=== PATIENT | male | born 1940 | race Caucasian/White ===

== ENCOUNTER → 2017-08-03 09:53 | Outpatient (CLI) | payer MEDICARE, OTHER, SELFPAY ==
[2017-08-03 12:56] LABS: Anion Gap 7 (5-15); BUN 16 mg/dL (7-18); BUN/Creat Ratio 16.1 RATIO (10-20); Calcium,Total 9.1 mg/dL (8.5-10.1); Chloride 107 mmol/L (98-107); Cholesterol 204 mg/dL (200); Creatinine, Serum 0.99 mg/dL (0.70-1.30); EST Glomerular Filtration Rate 78 mL/min (>60); Est Glom Filt Rate - Afr Amer 95 mL/min (>60); Glucose 97 mg/dL (74-106); High Density Lipoprotein 53 mg/dL; PSA,Total - Annual Screen 0.61 ng/mL (0.00-4.00); Potassium 4.3 mmol/L (3.5-5.1); Sodium Level 140 mmol/L (136-145); Triglycerides 103 mg/dL; Very Low Density Lipoprotein 21 mg/dL (5-40)
[2017-08-04 10:26] LABS: Vitamin D,25 Hydroxy 29.3 ng/mL (29.95-100.01)
== END ==
PROVIDERS: Family Provider Family Medicine; PCP Family Medicine; Visit Provider Family Medicine
DX: I10 Essential (primary) hypertension (principal); E55.9 Vitamin D deficiency, unspecified; Z12.5 Encounter for screening for malignant neoplasm of prostate
CPT/HCPCS: 36415; 80048; 80061; 82306; 84153; G0103

== ENCOUNTER 2018-10-13 07:58 | Emergency (ER) | payer MEDICARE, OTHER, SELFPAY ==
[2018-10-13 08:00] VITALS: BP 131/87; PULSE 92; RESP 18; TEMP 36.6; O2SAT 97; BMI 27.5
[2018-10-13] MEDS: Fleet Enema 1 ML RECTAL (08:39)
--- NOTE | 2018-10-13 08:46 | ED.VIS.GEN ---
History of Present Illness Chief Complaint: Constipation Narrative: Patient presenting for evaluation secondary to constipation. Patient reports that he has a underlying history of hemorrhoids which intermittently will cause him some difficulty with having bowel movements. Patient states that over the course the last 3 days however he has not been able to successfully have a bowel movement. He reports that he feels as if he is impacted, and feels as if there is a baseball of stool in his rectum that he cannot pass. Patient states that he took some stool softeners with no relief. He denies any abdominal pain. He does have some decreased appetite but no nausea or vomiting. Patient has a history of a distant appendectomy. No personal history of cancer. No unintended weight loss or night sweats. Review of systems otherwise negative. Past Medical History - Allergies and Home Meds Allergies/Adverse Reactions: Allergies No Known Allergies Allergy (Verified 10/13/18 08:02) Primary Care Physician: William Menjivar MD [Primary Care Provider] - Past Medical History: None Surgical History: appendectomy Smoking Status: Never smoker Review of Systems All systems negative except as indicated Gastrointestinal: Reports: Constipation. Denies: Abdominal pain Physical Exam Vital Signs/Narrative: Vital Signs Temp Pulse Resp BP Pulse Ox 10/13/18 08:00 97.8 F 92 18 131/87 H 97 General: Well nourished, Well developed, No Acute Distress Head: Normocephalic, Atraumatic Eyes: Perrl, EOMI ENT: Moist mucous membranes, No rhinorrhea Neck: Supple, Nontender Cardiovascular: Regular rate, Regular rhythm, No murmurs Respiratory: No distress, CTA bilaterally, Chest nontender Abdomen: Soft, Nontender, Nondistended, Normal bowel sounds Rectal: - - Patient has evidence of nonthrombosed external hemorrhoids that were not overly tender to palpation. Digital exam shows stool impaction with hard stool in the vault Back: Nontender, Normal Inspection Extremities: Nontender, No edema Skin: Normal color, No rash Neurological: Alert, Oriented x3, Cranial nerves II-XII grossly intact, Normal Strength, Normal Sensation Psychological: Normal affect, Normal Mood Diagnostic/Tx/Re-eval - Medical Decision Making Patient presented secondary to constipation. He was disimpacted as noted in the procedure note. Patient was given a fleets enema with resolution of his impaction and improvement of his constipation. Patient will be discharged with lactulose Colace and follow-up with a general surgeon for his hemorrhoids. Procedures Procedure(s): Fecal disimpaction: Patient was placed in the left lateral decubitus position. Lubricated index finger was utilized to palpate the patient's fecal impaction. This was gently broken up with digital pressure. Patient tolerated this well. ED Disposition - Plan for ED Patient: Disposition: Home or Assisted Living Diagnosis: Fecal impaction Instructions: FECAL IMPACTION, Treated, CONSTIPATION (Adult), Hemorrhoids Prescriptions: Docusate Sodium [Colace] 100 mg PO DAILY #30 cap Prescription Printed Lactulose 10 gm PO DAILY #60 ml Prescription Printed Referrals: William Menjivar MD [Primary Care Provider] - Leslie Gupta MD [STAFF PHYSICIAN] - As Needed
== END 2018-10-13 09:45 | disposition home or self-care (01) ==
PROVIDERS: Emergency Provider Emergency Medicine; Family Provider Family Medicine; PCP Family Medicine
DX: K56.41 Fecal impaction (principal); K64.4 Residual hemorrhoidal skin tags
CPT/HCPCS: 99283

== ENCOUNTER → 2018-10-27 10:01 | Outpatient (CLI) | payer MEDICARE, OTHER, SELFPAY ==
[2018-10-13 08:00] VITALS: BMI 27.5
--- NOTE | 2018-10-27 10:05 | RAD_ITS ---
STUDY: X-RAY - ACUTE ABDOMINAL SERIES REASON FOR EXAM: Male, 77 years old. Constipation. TECHNIQUE: Single view of the chest. Supine, and erect view(s) of the abdomen were obtained. COMPARISON: Comparison is made with prior study dated September 11, 2016. FINDINGS: Mild degree of the increased markings at the lung bases suggests mild bibasilar scarring. Decreased bronchovascular markings in the lung apices suggestive of emphysematous changes. Normal size heart. Normal mediastinum and selina. Normal visualized pulmonary arteries. There is atherosclerotic calcification of the aortic arch with tortuosity. There is a moderate amount of colonic fecal material. The soft tissue structures of the abdomen and pelvis are unremarkable. There are diffuse degenerative changes of the visualized lumbar spine. RAD/Acute Abdomen Inc Chest IMPRESSION: Moderate amount of fecal material is seen in the colon. Electronically Signed: Abelino Luna, at 15:10 EDT , Service support ,
== END ==
PROVIDERS: Family Provider Family Medicine; PCP Family Medicine; Referring Provider Nurse Practitioner Family; Visit Provider Nurse Practitioner Family
DX: K59.00 Constipation, unspecified (principal)
CPT/HCPCS: 74022

== ENCOUNTER → 2018-11-23 08:51 | Outpatient (CLI) | payer MEDICARE, OTHER, SELFPAY ==
--- NOTE | 2018-11-23 09:13 | US_ITS ---
STUDY: ABDOMINAL ULTRASOUND REASON FOR EXAM: Male, 77 years old. Hypertension TECHNIQUE: Transabdominal ultrasound was performed with real-time and static roberts scale imaging. TECHNICAL QUALITY: Adequate. COMPARISON: None. FINDINGS: Liver: The liver measures 15.2 cm. There is normal echogenicity of the liver. The bile ducts are within normal limits. There is hepatic color flow. The direction of portal flow is hepatopetal. There is no demonstrated mass lesion. Portal vein measurement: Gallbladder: Normal distended gallbladder. The gallbladder wall measures 3.8 mm. There is a negative sonographic Snyder's sign. There is no pericholecystic fluid. There is a gallbladder polyp. Common Bile Duct (C.B.D.): The common bile duct measures 4.8 mm. Pancreas: Normal size of the head, body and tail of the pancreas. There is normal echogenicity of the pancreas. There is no demonstrated pancreatic mass or cyst. Spleen: Normal size of the spleen. The spleen measures 8.4 cm. Right Kidney: Normal size of the right kidney. The right kidney measures 11.5 x 5.5 x 6.7 cm. Normal renal cortex. The right cortex measures 1.4 cm. There is no demonstrated renal mass or cyst. There is no right hydronephrosis. Left Kidney: Normal size of the left kidney. The left kidney measures 12.3 x 5.0 x 5.5 cm. Normal renal cortex. The left cortex measures 1.5 cm. There is a simple 2.0 cm cyst. There is no left hydronephrosis. Aorta: Peripheral calcifications, no demonstrated aneurysm I.V.C.: The IVC is patent. There is no ascites. US/Abdomen Complete IMPRESSION: Nonspecific gallbladder wall thickening at 3.8 mm, no other sonographic evidence of gallbladder disease. Simple left renal cyst Electronically Signed: Tyler Rivers MD at 12:58 EDT , Service support ,
== END ==
PROVIDERS: Family Provider Family Medicine; PCP Family Medicine; Referring Provider Surgery; Visit Provider Surgery
DX: K63.9 Disease of intestine, unspecified (principal); K76.6 Portal hypertension
CPT/HCPCS: 76700

== ENCOUNTER → 2018-12-01 11:00 | Outpatient (CLI) | payer MEDICARE, OTHER, SELFPAY ==
--- NOTE | 2018-12-01 11:04 | RAD_ITS ---
STUDY: X-RAY - ABDOMEN/PELVIS REASON FOR EXAM: Male, 77 years old. Constipation. TECHNIQUE: AP supine and upright views of the abdomen and pelvis. COMPARISON: None. FINDINGS: Normal visualized lung bases. Contrast and fecal material is seen throughout the colon. There is no demonstrated free abdominal air. The visualized liver, spleen and kidneys are grossly normal in size and morphology. Normal soft tissue structures. There are diffuse degenerative changes of the visualized lumbar spine. RAD/Abd Inc Decub and/or Erect IMPRESSION: Contrast and fecal material are seen throughout the colon. Electronically Signed: Abelino Luna, at 11:20 EDT , Service support ,
== END ==
PROVIDERS: Family Provider Family Medicine; PCP Family Medicine; Referring Provider Family Medicine; Visit Provider Family Medicine
DX: K59.00 Constipation, unspecified (principal)
CPT/HCPCS: 74019

== ENCOUNTER → 2020-09-11 15:20 | Outpatient (CLI) | payer MEDICARE, OTHER, SELFPAY ==
--- NOTE | 2020-09-11 15:27 | RAD_ITS ---
INDICATION: DDD EXAMINATION/TECHNIQUE: X-RAY - XR Spine Cervical 6 or More Views COMPARISON: Previous cervical spine x-rays obtained on 06/29/2013 FINDINGS: Studies of the cervical spine in 7 projections including obliques and flexion and extension views show some narrowing of the before meals 34 and C5-6 and C6-7 intervertebral disc spaces there appears to be good extension of the cervical spine with some mild limitation of flexion of the cervical spine. There is uncinate spurring with narrowing of the C3-4, C4-5, C5-6 and C6-7 neural foramina on the right and uncinate spurring with neural foraminal narrowing at the C3-4, C4-5, C5-6 and C6-7 levels on the left. Cervical spondylosis of the articular facets is particularly prominent at C3-4, C4-5, C5-6 and C6-7 levels bilaterally. 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 Electronically Signed: Santana Alonzo DO at 9:40 EDT Tel , Service support ,
--- NOTE | 2020-09-11 15:27 | RAD_ITS ---
STUDY: X-RAY - LEFT SHOULDER REASON FOR EXAM: Male, 79 years old. SHOULDER PAIN TECHNIQUE: 4 view(s) of the shoulder. COMPARISON: None. FINDINGS: Normal glenohumeral articulation. Normal acromioclavicular joint. Normal acromion. Normal humeral head and visualized proximal humerus. The soft tissue structures are unremarkable. Normal visualized pulmonary apex. RAD/Shoulder min 2 Views IMPRESSION: Normal x-ray examination of the shoulder. Electronically Signed: Max Dillon MD at 15:18 EDT Tel , Service support ,
[2020-09-11 17:49] LABS: Hematocrit 46.9 % (40-54); Hemoglobin 15.7 g/dL (13.0-16.5); Mean Corp Hgb Conc 33.5 g/dL (32-36); Mean Corpuscular Hgb 29.7 pg (27.0-32.0); Mean Corpuscular Volume 88.7 fL (80-94); Mean Platelet Vol. 8.7 fl (6.2-12.0); Platelet Count 200 K/mm3 (150-450); RBC Distribution Width CV 12.1 % (11.6-14.6); RBC Distribution Width SD 39.2 fl (35.1-43.9); Red Blood Count 5.29 M/mm3 (4.6-6.2); White Blood Count 6.7 K/mm3 (4.4-11.0)
[2020-09-11 18:25] LABS: ALB/GLOB Ratio 1.4 RATIO (0.9-2.4); AST(SGOT) 20 U/L (15-37); Alanine Aminotransfer ALT/SGPT 26 U/L (16-61); Albumin, Serum 4.2 g/dL (3.2-5.0); Alkaline Phosphatase 93 U/L (45-117); Anion Gap 9 (5-15); BUN 14 mg/dL (7-18); BUN/Creat Ratio 15.3 RATIO (10-20); Chloride 103 mmol/L (98-107); Creatinine, Serum 0.91 mg/dL (0.70-1.30); EST Glomerular Filtration Rate 85 mL/min (>60); Est Glom Filt Rate - Afr Amer 103 mL/min (>60); Globulin 3.1 g/dL (2.2-4.2); Glucose 86 mg/dL (74-106); Protein, Total 7.3 g/dL (6.4-8.2); Sodium Level 138 mmol/L (136-145); Thyroid Stim Hormone (TSH) 1.15 uIU/mL (0.358-3.74)
== END ==
PROVIDERS: PCP Family Medicine; Referring Provider Family Medicine; Visit Provider Family Medicine
DX: M50.30 Other cervical disc degeneration, unspecified cervical region (principal); M25.512 Pain in left shoulder; R53.81 Other malaise; Z13.220 Encounter for screening for lipoid disorders
CPT/HCPCS: 36415; 72052; 73030; 80053; 84443; 85027

== ENCOUNTER 2020-09-15 03:42 | Emergency (ER) | payer MEDICARE, OTHER, SELFPAY ==
[2020-09-15 03:44] VITALS: BP 153/96; PULSE 79; RESP 15; TEMP 36.8; O2SAT 98; BMI 27.4
--- NOTE | 2020-09-15 04:01 | RAD_ITS ---
STUDY: X-RAY - ACUTE ABDOMINAL SERIES REASON FOR EXAM: Male, 79 years old. Pain, constipation TECHNIQUE: Single view of the chest. Supine, and erect view(s) of the abdomen were obtained. COMPARISON: None. FINDINGS: There is no pneumothorax or pleural effusion identified. Chronic lung changes. No focal consolidation. Normal size heart. Aortic calcifications. There is a non-specific bowel gas pattern. The soft tissue structures of the abdomen and pelvis are unremarkable. There are diffuse degenerative changes of the visualized lumbar spine. RAD/Acute Abdomen Inc Chest IMPRESSION: Chronic lung changes. No focal consolidation. Nonobstructive bowel gas pattern. Electronically Signed: Armando Toney MD at 5:48 EDT Tel , Service support ,
--- NOTE | 2020-09-15 04:01 | EKG12_ITS ---
Test Reason : ABD AMANDA Blood Pressure : / mmHG Vent. Rate : 062 BPM Atrial Rate : 062 BPM P-R Int : 134 ms QRS Dur : 088 ms QT Int : 440 ms P-R-T Axes : -08 -17 031 degrees QTc Int : 446 ms Normal sinus rhythm Normal ECG Confirmed by AUGUSTINA CABELLO, JA ([id number]), associate editor LEANDER BRAY ([id number]) on 09/18/2020 9:47:54 AM Referred By: JONATHAN Confirmed By:JA JACKMAN MD
--- NOTE | 2020-09-15 04:03 | EDS_ITS ---
HPI HPI - GI History of Present Illness Chief Complaint: Abd Pain Informant: patient and spouse/S.O. Narrative Narrative: Patient reports that for the last week he has been constipated. He has had this problems a couple times in the past although does not have it regularly. He took an unknown hoiv-all-egixqav agent to help with this somewhere over the last week. He took it once but it did not help. He states now he feels like he does not urinate as well. This has been going on for about a few days last than the constipation. He states he dribbles more but he does not feel distended. He has no dysuria or frequency. He denies any abdominal pain. He does states he feels full or bloated. He is eating and drinking but sometimes eating causes nausea. He also has a history of chronic IBS but states this seems a little different. He has chronic lower back pain but it is not really present now. He has no history of AAA. He is not lightheaded or syncopal. No fevers or chills. Nothing specifically makes his symptoms better or worse. He states he was here once before and he got an enema that helped quite a bit. He is on generic Prozac for anxiety and depression. He denies any other medications actively. [facility] Medical History Depression History of IBS Home Medications fluoxetine 20 mg PO DAILY 09/15/20 [History Last Taken Unknown] Allergy/AdvReac Type Severity Reaction Status Date / Time No Known Allergies Allergy Verified 10/13/18 08:02 Surgical History History of appendectomy Social History Smoking Status: Never smoker ROS ROS ED Constitutional Constitutional ED: Denies chills or fever(s) ENT ENT ED: Denies sore throat Cardiovascular Cardiovascular: Denies chest pain or palpitations Respiratory/Chest Respiratory/Chest: Denies cough or dyspnea Gastrointestinal Gastrointestinal: Reports constipation, nausea and other Details: See history of present illness. ; Denies abdominal pain, diarrhea, melena or vomiting Genitourinary Genitourinary ED: Reports other Details: See history of present illness. ; Denies dysuria or hematuria Musculoskeletal Musculoskeletal: Denies myalgias Integumentary Denies rash Neurologic Neurologic: Reports other Details: Patient sometimes does get a burning sensation of his legs below his knees and feet at night. He is not having that now are complaining about it though. ; Denies headache(s), paresthesias or weakness Psychiatric Psychiatric: Reports anxiety Allergic/Immunologic Allergic/Immunologic ED: Denies urticaria EXAM Physical Exam Const Vital Signs: 09/15/20 03:44 09/15/20 05:44 09/15/20 06:42 Temperature 98.3 F Temperature Source Oral Pulse Rate 79 54 L 67 Respiratory Rate 15 15 13 Blood Pressure 153/96 H 156/76 H 162/81 H Blood Pressure Mean 115 102 108 Pulse Ox 98 98 99 Oxygen Delivery Method Room Air Room Air Room Air Positive well nourished and well developed; Negative for unkempt General Appearance ED: well developed and NAD; Negative for unkempt HEENT Reports dry mucous membranes normocephalic Mouth ED: Yes dry mucous membranes Mouth: dry mucous membranes Eyes EOMs intact bilaterally Resp normal respiratory effort and clear to auscultation bilaterally Cardio regular rate, regular rhythm and no murmurs GI non-tender and non-distended GI Narrative: Abdomen actually seems benign. He is not at all distended. His abdomen is soft. There is no tenderness. I hear no bruit and feel no mass. His bladder also does not feel markedly distended nor does he have pressure over it. Auscultation: normoactive bowel sounds Palpation: soft Back/Spine no CVA tenderness Extremity full ROM Extremity Narrative: Peripheral pulses are equal. No ischemia by exam. General Extremety ED: Negative for edema or tenderness General Extremity: Negative for edema Neuro Sensorium / Orientation: alert and oriented to person Psych mental status grossly normal Appearance: Negative for unkempt Skin Rashes: no rashes MDM MDM MDM Narrative Medical decision making narrative: Blood work including CBC, electrolytes are normal. LFTs are normal other than a very small elevation of his total bilirubin. But he does not have pain in that area. Urinalysis is negative. Lactate is 2.0. Bladder scan only showed 35 cc in the bladder. Rectal exam showed very minimal prostate tenderness. It really was not remarkable. It was not boggy or enlarged. No stool was felt at all. He does have a hemorrhoid but it is decompressed. Prior CT scan was about 8 years ago. I am going to do a CT scan because of this patient's age symptoms and no diagnosis is pointing to his cause. His x-ray does not indicate significant constipation. There is no indication of urinary retention with his bladder scan. When I was in the room talking to him about adding this imaging he kept saying he needs to urinate. Try talk to him about doing a CAT scan, he stated he had to urinate badly. He was able to get up and urinate about 250 cc. He seems to be emptying the bladder well. I am not seei ng signs of significant constipation. I think if his CT scan is okay he can go home. He can certainly take some stool softeners. Although his x-ray does not look like he has a lot of stool, it sounds like he is not having regular bowel movements. He has no fever, he has no white count. His abdomen does not show distention or tenderness. I am pending CT results at this time. Patient will be turned over to oncoming physician. Lab Data Attestation: I reviewed the patient's lab results. Labs: Laboratory Results - last 24 hr 09/15/20 09/15/20 09/15/20 03:55 03:55 04:20 WBC 6.9 RBC 5.19 Hgb 15.5 Hct 45.5 MCV 87.7 MCH 29.9 MCHC 34.1 RDW Std Deviation 38.2 RDW Coeff of Delia 11.9 Plt Count 196 MPV 8.4 Immature Gran % (Auto) 0.300 Neut % (Auto) 45.4 L Lymph % (Auto) 42.5 H [place] % (Auto) 10.1 H Eos % (Auto) 1.3 Baso % (Auto) 0.4 Absolute Neuts (auto) 3.2 Absolute Lymphs (auto) 2.95 Nucleated RBC % 0 Sodium 139 Potassium 3.7 Chloride 103 Carbon Dioxide 26.0 Anion Gap 10 BUN 9 Creatinine 0.99 Estim Creat Clear Calc 59.49 Est GFR (MDRD) Af Amer 94 Est GFR (MDRD) Non-Af 78 BUN/Creatinine Ratio 9.1 L Glucose 98 Lactic Acid 2.0 Calcium 9.2 Total Bilirubin 1.10 H AST 27 ALT 27 Alkaline Phosphatase 86 Total Protein 7.1 Albumin 4.0 Globulin 3.1 Albumin/Globulin Ratio 1.3 Urine Color Urine Clarity Urine pH Ur Specific Faison Urine Protein Urine Glucose (UA) Urine Ketones Urine Occult Blood Urine Nitrite Urine Bilirubin Urine Urobilinogen Ur Leukocyte Esterase Urine RBC Urine WBC Ur Squamous Epith Cells Urine Bacteria Hyaline Casts Urine Mucus 09/15/20 04:20 WBC RBC Hgb Hct MCV MCH MCHC RDW Std Deviation RDW Coeff of Delia Plt Count MPV Immature Gran % (Auto) Neut % (Auto) Lymph % (Auto) [place] % (Auto) Eos % (Auto) Baso % (Auto) Absolute Neuts (auto) Absolute Lymphs (auto) Nucleated RBC % Sodium Potassium Chloride Carbon Dioxide Anion Gap BUN Creatinine Estim Creat Clear Calc Est GFR (MDRD) Af Amer Est GFR (MDRD) Non-Af BUN/Creatinine Ratio Glucose Lactic Acid Calcium Total Bilirubin AST ALT Alkaline Phosphatase Total Protein Albumin Globulin Albumin/Globulin Ratio Urine Color Yellow Urine Clarity Clear Urine pH 5.0 Ur Specific Faison 1.025 Urine Protein 15 H Urine Glucose (UA) Normal Urine Ketones 50 H Urine Occult Blood Negative Urine Nitrite Negative Urine Bilirubin Negative Urine Urobilinogen 1 H Ur Leukocyte Esterase Negative Urine RBC 0 SEEN Urine WBC 0 SEEN Ur Squamous Epith Cells 0 SEEN Urine Bacteria 0 SEEN Hyaline Casts 0-5 SEEN Urine Mucus 2+ Radiography Diagnostic Testing: Radiology Impression Acute Abdomen Series 09/15/20 04:01 IMPRESSION: Chronic lung changes. No focal consolidation. Nonobstructive bowel gas pattern. Electronically Signed: Armando Toney MD at 5:48 EDT Tel , Service support , EKG Initial EKG: Comments: EKG done for older gentleman with a abdominal symptoms read by me shows sinus rhythm with rate of 62. No acute ST elevation or depression. No notable ectopy. MA interval, QRS duration and QTc are normal. Discharge Plan Triage Chief Complaint: Abd Pain ED Provider: Harshil Dee Dx/Rx/DC Orders Clinical Impression: History of constipation, Urinary hesitancy, Abdominal pressure Instructions: Abdominal Pain, ED Constipation (Adult) Prescriptions: No Action fluoxetine 20 mg Capsule 20 mg PO DAILY RF: 0 Primary Care Provider: William Menjivar Referrals: William Menjivar MD [Primary Care Provider] - 3-5 Days if not improving
[2020-09-15 04:11] LABS: Absolute Lymphocyte Count 2.95 X10^3/uL (0.83-4.51); Absolute Neutrophil Count 3.2 X10^3/uL (2.0-7.7); Basophil# 0.03 X10^3/uL; Basophil% 0.4 % (0-1); Eosinophil# 0.09 X10^3/uL; Eosinophils% 1.3 % (0-5); Hematocrit 45.5 % (40-54); Hemoglobin 15.5 g/dL (13.0-16.5); Lymphocyte # 2.95 X10^3/ul (0.83-4.51); Lymphocyte % 42.5 % (19-41); Mean Corp Hgb Conc 34.1 g/dL (32-36); Mean Corpuscular Hgb 29.9 pg (27.0-32.0); Mean Corpuscular Volume 87.7 fL (80-94); Mean Platelet Vol. 8.4 fl (6.2-12.0); Monocyte% 10.1 % (0-10); NRBC Flagged by Analyzer 0 % (0-5); Neutrophil # 3.15 X10^3/uL (2.7-7.7); Neutrophil % 45.4 % (47-70); Platelet Count 196 K/mm3 (150-450); RBC Distribution Width CV 11.9 % (11.6-14.6); RBC Distribution Width SD 38.2 fl (35.1-43.9); Red Blood Count 5.19 M/mm3 (4.6-6.2); White Blood Count 6.9 K/mm3 (4.4-11.0)
[2020-09-15 04:25] LABS: ALB/GLOB Ratio 1.3 RATIO (0.9-2.4); AST(SGOT) 27 U/L (15-37); Alanine Aminotransfer ALT/SGPT 27 U/L (16-61); Alkaline Phosphatase 86 U/L (45-117); Anion Gap 10 (5-15); BUN 9 mg/dL (7-18); BUN/Creat Ratio 9.1 RATIO (10-20); Calcium,Total 9.2 mg/dL (8.5-10.1); Chloride 103 mmol/L (98-107); Creatinine, Serum 0.99 mg/dL (0.70-1.30); EST Glomerular Filtration Rate 78 mL/min (>60); Est Glom Filt Rate - Afr Amer 94 mL/min (>60); Estimated Creatinine Clearance 59.49 ml/min; Globulin 3.1 g/dL (2.2-4.2); Glucose 98 mg/dL (74-106); Potassium 3.7 mmol/L (3.5-5.1); Protein, Total 7.1 g/dL (6.4-8.2); Sodium Level 139 mmol/L (136-145)
[2020-09-15 04:27] LABS: Bacteria 0 SEEN /hpf (None Seen); Red Blood Cells-Urine 0 SEEN /hpf (0-5); Squamous Epithelial Cells - UA 0 SEEN /hpf (0-5); White Blood Cells 0 SEEN /hpf (0-5)
[2020-09-15] MEDS: 0.9% Normal Saline 1,000 ML 1000 ML IV (04:33)
[2020-09-15 05:04] LABS: Color, Urine Yellow (Yellow); Glucose, Dipstick Normal (Normal); Ketone-Dipstick 50 mg/dl (Negative); Leukocyte Esterase-Dipstick Negative /ul (Negative); Nitrite-Dipstick Negative (Negative); Occult Blood-Urine Negative /ul (Negative); Protein-Dipstick 15 mg/dl (Negative); Specific Gravity, Urine 1.025 (1.002-1.030); Urine Bilirubin Dipstick Negative (Negative); Urine Clarity Clear (Clear); Urine Urobilinogen 1 mg/dl (Normal)
[2020-09-15 05:44] VITALS: BP 156/76; PULSE 54; RESP 15; O2SAT 98
[2020-09-15 05:54] LABS: Hyaline Cast 0-5 SEEN /lpf (0-5); Mucous, Urine 2+ /hpf (<or=2+)
--- NOTE | 2020-09-15 05:59 | CT_ITS ---
STUDY: CT ABDOMEN AND PELVIS WITH CONTRAST REASON FOR EXAM: Male, 79 years old. abd pain RADIATION DOSAGE (If Supplied By Facility): CTDIvol = ( 13.51 ) mGy, DLP = ( 807.14 ) mGycm TECHNIQUE: Transaxial images were obtained from the dome of the diaphragm to the symphysis pubis without oral contrast. IV 100mL Isovue-[id number] was administered. Sagittal and coronal images were reconstructed. Individualized dose optimization techniques were used for this CT. COMPARISON: 04/25/2012 FINDINGS: The visualized lung bases are unremarkable. The visualized portions of the heart are within normal limits. Normal liver. Normal gallbladder and extrahepatic biliary system. Normal spleen. Normal pancreas. There is a small, circumscribed, smooth, low attenuation right adrenal mass, consistent with an adrenal adenoma. Normal left adrenal gland. Normal right kidney. Normal left kidney. Normal visualized stomach. Normal small intestine. Normal colon. There is non-visualization of the appendix. Normal abdominal aorta. Normal inferior vena cava. Normal retroperitoneum. Normal urinary bladder. Normal abdominal wall. Mild levoscoliosis with degenerative disc disease. CT/Abdomen/Pelvis W IV Cont ONLY IMPRESSION: Normal enhanced CT of the abdomen and pelvis. Electronically Signed: Max Dillon MD at 7:49 EDT Tel , Service support ,
[2020-09-15 06:42] VITALS: BP 162/81; PULSE 67; RESP 13; O2SAT 99
[2020-09-15 08:11] VITALS: BP 149/66; PULSE 55; RESP 15; O2SAT 98
[2020-09-15 08:25] LABS: Reflex Lactate? Y
== END 2020-09-15 08:12 | disposition home or self-care (01) ==
LOC: ED 04:26
PROVIDERS: Emergency Provider Emergency Medicine; PCP Family Medicine
DX: R10.9 Unspecified abdominal pain (principal); R39.11 Hesitancy of micturition; K58.9 Irritable bowel syndrome, unspecified; F32.9 Major depressive disorder, single episode, unspecified; F41.9 Anxiety disorder, unspecified; Z79.899 Other long term (current) drug therapy
CPT/HCPCS: 74022; 74177; 80053; 81001; 83605; 85025; 93005; 96360; 99283; J7030; Q9967; A4216

== ENCOUNTER 2020-09-18 18:24 | Emergency (ER) | payer MEDICARE, OTHER, SELFPAY ==
[2020-09-18 18:25] VITALS: PULSE 68; RESP 17; O2SAT 98
[2020-09-18 18:26] VITALS: BP 162/85; PULSE 66; RESP 17; TEMP 36.8; O2SAT 97; BMI 26.9
[2020-09-18 20:32] VITALS: BP 151/80; PULSE 50; RESP 18; O2SAT 96
[2020-09-18 21:46] LABS: Absolute Lymphocyte Count 3.35 X10^3/uL (0.83-4.51); Absolute Neutrophil Count 5.8 X10^3/uL (2.0-7.7); Basophil# 0.02 X10^3/uL; Basophil% 0.2 % (0-1); Eosinophil# 0.06 X10^3/uL; Eosinophils% 0.6 % (0-5); Hematocrit 46.8 % (40-54); Lymphocyte # 3.35 X10^3/ul (0.83-4.51); Lymphocyte % 32.9 % (19-41); Mean Corp Hgb Conc 34.2 g/dL (32-36); Mean Corpuscular Hgb 30.1 pg (27.0-32.0); Mean Platelet Vol. 8.3 fl (6.2-12.0); Monocyte# 0.88 X10^3/uL; Monocyte% 8.7 % (0-10); NRBC Flagged by Analyzer 0 % (0-5); Neutrophil # 5.83 X10^3/uL (2.7-7.7); Neutrophil % 57.3 % (47-70); Platelet Count 217 K/mm3 (150-450); RBC Distribution Width CV 12.1 % (11.6-14.6); RBC Distribution Width SD 38.6 fl (35.1-43.9); Red Blood Count 5.32 M/mm3 (4.6-6.2); White Blood Count 10.2 K/mm3 (4.4-11.0)
--- NOTE | 2020-09-18 22:00 | RAD_ITS ---
STUDY: X-RAY - ACUTE ABDOMINAL SERIES REASON FOR EXAM: Male, 79 years old. Pain, distention, headache, colicky pain. TECHNIQUE: Single view of the chest. Supine, and upper view(s) of the abdomen were obtained. COMPARISON: 09/15/[address] FINDINGS: No evidence of pneumonia, pulmonary edema, pneumothorax or pleural effusion. Mild chronic interstitial lung disease similar to previous. Cardiac silhouette, hilar and mediastinal contours with no acute findings. Heart size normal. Atherosclerosis of the thoracic aorta. No evidence of free air or bowel obstruction. Colonic air-fluid levels. No suspicious mass effect or abnormal calcifications. No acute osseous abnormality. RAD/Acute Abdomen Inc Chest IMPRESSION: Colonic air-fluid levels suggestive of diarrheal illness. No other acute finding. Mild chronic interstitial lung disease. Electronically Signed: Lon Hernandez MD at 22:20 EDT Tel , Service support ,
[2020-09-18 22:02] LABS: ALB/GLOB Ratio 1.4 RATIO (0.9-2.4); AST(SGOT) 35 U/L (15-37); Alanine Aminotransfer ALT/SGPT 36 U/L (16-61); Albumin, Serum 4.2 g/dL (3.2-5.0); Alkaline Phosphatase 86 U/L (45-117); Anion Gap 9 (5-15); BUN 12 mg/dL (7-18); BUN/Creat Ratio 12.1 RATIO (10-20); Chloride 103 mmol/L (98-107); Creatinine, Serum 0.99 mg/dL (0.70-1.30); EST Glomerular Filtration Rate 77 mL/min (>60); Est Glom Filt Rate - Afr Amer 93 mL/min (>60); Estimated Creatinine Clearance 59.49 ml/min; Globulin 3.1 g/dL (2.2-4.2); Glucose 90 mg/dL (74-106); Potassium 3.8 mmol/L (3.5-5.1); Protein, Total 7.3 g/dL (6.4-8.2); Sodium Level 139 mmol/L (136-145)
[2020-09-18 22:18] VITALS: BP 157/82; PULSE 63; RESP 16; O2SAT 97
[2020-09-19] MEDS: Ondansetron 4 MG/2 ML Vial IV (00:23)
--- NOTE | 2020-09-19 00:23 | ED.VIS.GI ---
HPI <Dr. Buck Rome MD - Last Filed: 09/19/20 00:29> HPI - GI History of Present Illness Chief Complaint: Abd Pain Detail of Chief Complaint: Nausea vomiting and abdominal pain Informant: patient Abdominal Pain/Flank Pain Onset: Days (The nausea and vomiting is been present for approximately 2 days) Context: Sudden Onset Timing: Intermittent Quality: Cramping (Intermittent cramping abdominal pain for approximately 1 month) Location: Diffuse (Worse lower quadrants) Current Severity: Mild Maximum Severity: Moderate Worsened by: - (When patient has urge to defecate is unable to) Relieved by: Not Relieved By Antacids, Food, Nothing and Remaining Still Nausea/Vomiting/Emesis GI Symptom: Positive for Nausea and Vomiting Onset: Yesterday Quality: Positive for Nonbilious; Negative for Blood streaks, Coffee ground and Hematemesis Severity: Mild Diarrhea/Melena/Hematochezia GI Symptom: Negative for Diarrhea, Melena and Hematochezia Associated Symptoms Associated Symptoms: Negative for Dysuria, Frequency and Hematuria Narrative Narrative: Patient is an elderly male with history of constipation, intermittent abdominal pain. He was seen 3 days ago. His work-up was unremarkable at that time. He does report night sweats. He does report unintentional weight loss because he has no appetite. He denies fever or chills. He denies headache, ocular, visual or auditory symptoms. He denies cardiac or respiratory symptoms. He denies black or maroon-colored stool. He denies bright red blood per rectum. He did complain of numbness in his left arm and numbness in his left shoulder. He denies problems with balance. He has no other complaints. Prior similar symptoms: Yes Recent Illness/Hospitalization: Yes PFSH <Dr. Buck Rome MD - Last Filed: 09/19/20 00:29> [facility] Medical History Depression History of IBS Home Medications fluoxetine 20 mg PO DAILY 09/15/20 [History Last Taken Unknown] Allergy/AdvReac Type Severity Reaction Status Date / Time No Known Allergies Allergy Verified 09/18/20 18:25 Surgical History History of appendectomy Social History (Updated 09/19/20 @ 00:[address] Buck Rome MD) household members: none housing: apartment Smoking Status: Never smoker alcohol intake: current alcohol intake frequency: holidays/special occasions only substance use type: does not use ROS <Dr. Buck Rome MD - Last Filed: 09/19/20 00:29> ROS ED Constitutional Constitutional ED: Reports sweats and weight loss; Denies chills, fever(s) or subjective ENT ENT ED: Denies ear pain, rhinorrhea or sore throat Cardiovascular Cardiovascular: Denies chest pain, orthopnea, palpitations, paroxysmal nocturnal dyspnea or racing heartbeat Respiratory/Chest Respiratory/Chest: Denies cough, dyspnea, dyspnea on exertion, orthopnea, paroxysmal nocturnal dyspnea or sputum Gastrointestinal Gastrointestinal: Reports abdominal pain, constipation, nausea and vomiting; Denies diarrhea or melena Genitourinary Genitourinary ED: Denies dysuria, hematuria or urinary frequency Musculoskeletal Musculoskeletal: Denies arthralgias, back pain, myalgias or neck pain Integumentary Denies Abrasions or rash Neurologic Neurologic: Reports paresthesias and weakness; Denies headache(s) Psychiatric Psychiatric: Reports depression Hematologic/Lymphatic Hematologic/Lymphatic: Denies easy bleeding or easy bruising EXAM <Dr. Buck Rome MD - Last Filed: 09/19/20 00:29> Physical Exam Const Vital Signs: 09/18/20 18:25 09/18/20 18:26 09/18/20 20:32 Temperature 98.3 F Temperature Source Oral Pulse Rate 68 66 50 L Respiratory Rate 17 17 18 Blood Pressure 162/85 H 151/80 H Blood Pressure Mean 110 103 Pulse Ox 98 97 96 Oxygen Delivery Method Room Air Room Air Room Air 09/18/20 22:18 09/19/20 00:25 Temperature Temperature Source Pulse Rate 63 62 Respiratory Rate 16 18 Blood Pressure 157/82 H 145/73 H Blood Pressure Mean 107 97 Pulse Ox 97 98 Oxygen Delivery Method Room Air Room Air Positive well nourished and well developed General Appearance ED: well developed and other Patient appears uncomfortable and is very anxious. HEENT Reports dry mucous membranes normocephalic and atraumatic Mouth ED: Yes dry mucous membranes Mouth: dry mucous membranes Eyes PERRL and EOMs intact bilaterally General Eye ED: Negative for pale conjunctiva or scleral icterus Neck no lymphadenopathy, supple and no JVD Resp normal respiratory effort and clear to auscultation bilaterally Cardio regular rate, regular rhythm, S1 normal heart sound, S2 normal heart sound and no murmurs GI no masses Auscultation: hyperactive bowel sounds Palpation: soft, tender other (Diffuse greater right and left lower quadrant) and guarding other (Periumbilical); Negative for rigid, hepatomegaly, hernia, mass or pulsatile mass Narrative: Normal external genitalia Back/Spine no CVA tenderness Cervical Spine: Negative for cervical spine tenderness Thoracic Spine / Upper Back: Negative for thoracic spinal tenderness Lumbar Spine / Lower Back: Negative for lumbar spinal tenderness Extremity full ROM General Extremety ED: Negative for edema or tenderness General Extremity: Negative for edema Neuro CN's II-XII intact bilaterally and no sensory deficits noted Sensorium / Orientation: alert, oriented to person, oriented to place and oriented to time Psych thought process normal Mood & Affect: anxious Skin no wounds Lesions: no lesions Rashes: no rashes <Dr. Harshil Dee MD - Last Filed: 09/19/20 04:14> Physical Exam Const Vital Signs: 09/18/20 18:25 09/18/20 18:26 09/18/20 20:32 Temperature 98.3 F Temperature Source Oral Pulse Rate 68 66 50 L Respiratory Rate 17 17 18 Blood Pressure 162/85 H 151/80 H Blood Pressure Mean 110 103 Pulse Ox 98 97 96 Oxygen Delivery Method Room Air Room Air Room Air 09/18/20 22:18 09/19/20 00:25 Temperature Temperature Source Pulse Rate 63 62 Respiratory Rate 16 18 Blood Pressure 157/82 H 145/73 H Blood Pressure Mean 107 97 Pulse Ox 97 98 Oxygen Delivery Method Room Air Room Air MDM <Dr. Buck Rome MD - Last Filed: 09/19/20 00:29> [facility] Narrative Medical decision making narrative: With prior tree of appendectomy, and complaint of nausea and vomiting with constipation even though patient had CT of the abdomen 3 days ago abdominal series was obtained. There are air-fluid levels noted. Will obtain CBC to assess white count and H&H. Comprehensive metabolic panel to assess electrolytes, alkaline phosphatase, and calcium since she is reporting weight loss with night sweats. Since she does have air-fluid levels noted on the abdominal series and not classic for partial small bowel obstruction but clinically there is concern for partial small bowel obstruction CT of the abdomen was obtained. Patient has been medicated with Zofran for his nausea. Lab Data Attestation: I reviewed the patient's lab results. Labs: Laboratory Results - last 24 hr 09/18/20 09/18/20 21:33 21:33 WBC 10.2 RBC 5.32 Hgb 16.0 Hct 46.8 MCV 88.0 MCH 30.1 MCHC 34.2 RDW Std Deviation 38.6 RDW Coeff of Delia 12.1 Plt Count 217 MPV 8.3 Immature Gran % (Auto) 0.300 Neut % (Auto) 57.3 Lymph % (Auto) 32.9 Hughes % (Auto) 8.7 Eos % (Auto) 0.6 Baso % (Auto) 0.2 Absolute Neuts (auto) 5.8 Absolute Lymphs (auto) 3.35 Nucleated RBC % 0 Sodium 139 Potassium 3.8 Chloride 103 Carbon Dioxide 27.0 Anion Gap 9 BUN 12 Creatinine 0.99 Estim Creat Clear Calc 59.49 Est GFR (MDRD) Af Amer 93 Est GFR (MDRD) Non-Af 77 BUN/Creatinine Ratio 12.1 Glucose 90 Calcium 9.0 Total Bilirubin 0.70 AST 35 ALT 36 Alkaline Phosphatase 86 Total Protein 7.3 Albumin 4.2 Globulin 3.1 Albumin/Globulin Ratio 1.4 Radiography Diagnostic Testing: Radiology Impression Acute Abdomen Series 09/18/20 22:00 IMPRESSION: Colonic air-fluid levels suggestive of diarrheal illness. No other acute finding. Mild chronic interstitial lung disease. Electronically Signed: Lon Hernandez MD at 22:20 EDT Tel , Service support , Abdomen CT 09/19/20 23:58 IMPRESSION: Evidence of diarrheal illness with coronal air-fluid levels and no formed stool. Other chronic findings as above. Electronically Signed: Lon Hernandez MD at 2:48 EDT Tel , Service support , The end pression by radiologist was read. Patient does not have diarrhea. He has constipation and reading does not correlate with the patient's clinical presentation or findings. CT was obtained as previously documented to evaluate for partial small bowel obstruction. <Dr. Harshil Dee MD - Last Filed: 09/19/20 04:14> [facility] MDM Narrative Medical decision making narrative: Patient is turned over to me pending results of his CAT scan. This does show some increased fluid in the bowels but no acute process. He does admit now that he has had some diarrhea since using both an [id number] laxative and some medicines that his physician gave to him. His exam is benign. He is not having distention or tenderness at this time. In fact his abdomen is actually quite soft. It sounds like he may have had some distention earlier though. I think it is okay that he goes home. He will try to restart resuming a normal diet. He may need follow-up for colonoscopy. It sounds like his last colonoscopy was 2 or 3 years ago. If he is having pain, fevers, blood in the stool or other concerns he should return. Lab Data Labs: Laboratory Results - last 24 hr 09/18/20 09/18/20 21:33 21:33 WBC 10.2 RBC 5.32 Hgb 16.0 Hct 46.8 MCV 88.0 MCH 30.1 MCHC 34.2 RDW Std Deviation 38.6 RDW Coeff of Delia 12.1 Plt Count 217 MPV 8.3 Immature Gran % (Auto) 0.300 Neut % (Auto) 57.3 Lymph % (Auto) 32.9 Hughes % (Auto) 8.7 Eos % (Auto) 0.6 Baso % (Auto) 0.2 Absolute Neuts (auto) 5.8 Absolute Lymphs (auto) 3.35 Nucleated RBC % 0 Sodium 139 Potassium 3.8 Chloride 103 Carbon Dioxide 27.0 Anion Gap 9 BUN 12 Creatinine 0.99 Estim Creat Clear Calc 59.49 Est GFR (MDRD) Af Amer 93 Est GFR (MDRD) Non-Af 77 BUN/Creatinine Ratio 12.1 Glucose 90 Calcium 9.0 Total Bilirubin 0.70 AST 35 ALT 36 Alkaline Phosphatase 86 Total Protein 7.3 Albumin 4.2 Globulin 3.1 Albumin/Globulin Ratio 1.4 Radiography Diagnostic Testing: Radiology Impression Acute Abdomen Series 09/18/20 22:00 IMPRESSION: Colonic air-fluid levels suggestive of diarrheal illness. No other acute finding. Mild chronic interstitial lung disease. Electronically Signed: Lon Hernandez MD at 22:20 EDT Tel , Service support , Abdomen CT 09/19/20 23:58 IMPRESSION: Evidence of diarrheal illness with coronal air-fluid levels and no formed stool. Other chronic findings as above. Electronically Signed: Lon Hernandez MD at 2:48 EDT Tel , Service support , Discharge Plan Triage Chief Complaint: Abd Pain ED Provider: Buck Rome Dx/Rx/DC Orders Clinical Impression: History of constipation, Abdominal pressure Instructions: ED Pain, Acute, Uncertain Cause Prescriptions: No Action fluoxetine 20 mg Capsule 20 mg PO DAILY RF: 0 Primary Care Provider: William Menjivar Referrals: William Menjivar MD [Primary Care Provider] - As soon as possible Disposition Disposition: Home, Self Care Discharge Date/Time: 09/19/20 03:15
[2020-09-19 00:25] VITALS: BP 145/73; PULSE 62; RESP 18; O2SAT 98
--- NOTE | 2020-09-19 23:58 | CT_ITS ---
STUDY: CT ABDOMEN AND PELVIS WITHOUT CONTRAST REASON FOR EXAM: Male, 79 years old. Pain and constipation. TECHNIQUE: Transaxial images were obtained from the dome of the diaphragm to the symphysis pubis with oral contrast, and without intravenous contrast. Sagittal and coronal images were reconstructed. Individualized dose optimization techniques were used for this CT. COMPARISON: 09/15/2020 CT abdomen pelvis. FINDINGS: Partially visualized lower chest: Mild fibrosis lung bases and trace pericardial fluid similar to prior. Liver: No concerning lesions. Gallbladder and biliary tree: No visible gallstones. No pericholecystic inflammation. No biliary ductal dilation. Pancreas: No pancreatic lesions or inflammation. Spleen: Normal size, no splenic lesions. Adrenal glands: Small bilateral adrenal adenomas. Kidneys and ureters: No hydronephrosis or renal stones. No concerning masses. No ureteral dilation. 2.0 cm simple cyst off the lateral aspect of the lower pole of the left kidney. Bilateral perinephric stranding similar to previous. Bowel: Status post appendectomy. No obstruction or inflammation of the bowel. Fluid throughout the bowel, including layering in the rectum, with no formed stool. Urinary bladder: No stones or wall thickening. Reproductive:Normal size prostate. Vascular: No abdominal aortic aneurysm. Retroperitoneal and peritoneal spaces: No ascites or free air. No retroperitoneal lesions. Retroperitoneal lipomatosis again demonstrated. Osseous: No acute osseous abnormality. Bony demineralization. Abdominal and pelvic wall: No concerning findings. Any findings described in the findings sections and not included in the impression are incidental and do not require imaging follow-up. CT/Abdomen/Pel W ORAL Cont Only IMPRESSION: Evidence of diarrheal illness with coronal air-fluid levels and no formed stool. Other chronic findings as above. Electronically Signed: Lon Hernandez MD at 2:48 EDT Tel , Service support ,
== END 2020-09-19 03:15 | disposition home or self-care (01) ==
PROVIDERS: Emergency Provider Emergency Medicine; PCP Family Medicine
DX: R10.9 Unspecified abdominal pain (principal); R11.2 Nausea with vomiting, unspecified; K59.00 Constipation, unspecified; R20.0 Anesthesia of skin; R63.4 Abnormal weight loss; K58.9 Irritable bowel syndrome, unspecified; F32.9 Major depressive disorder, single episode, unspecified; Z79.899 Other long term (current) drug therapy
CPT/HCPCS: 74022; 74176; 80053; 85025; 99285; A4216; J2405

== ENCOUNTER → 2020-09-27 08:15 | Outpatient (CLI) | payer MEDICARE, OTHER, SELFPAY ==
[2020-09-18 18:26] VITALS: BMI 26.9
--- NOTE | 2020-09-27 08:20 | US_ITS ---
STUDY: ABDOMINAL ULTRASOUND - RIGHT UPPER QUADRANT REASON FOR VISIT: Male, 79 years old epigastric pain. TECHNIQUE: Ultrasound evaluation of the right upper quadrant was performed with real-time and static roberts-scale imaging. TECHNICAL QUALITY: Adequate. COMPARISON: Comparison is made with prior study 11/23/2018. FINDINGS: Liver: The liver measures 15.1 cm. There is increased echogenicity consistent with fatty infiltration. The bile ducts are within normal limits. There is hepatic color flow. The direction of portal flow is hepatopetal. There is no demonstrated mass lesion. Gallbladder: Normal distended gallbladder. The gallbladder wall measures 2.4 mm. There is a negative sonographic Snyder''s sign. There is no pericholecystic fluid. There are no gallstones. Common Bile Duct (C.B.D.): The common bile duct measures 4.5 mm. Pancreas: Normal size of the head, body and tail of the pancreas. There is normal echogenicity of the pancreas. There is no demonstrated pancreatic mass or cyst. Right Kidney: Normal size of the right kidney. The right kidney measures 11.3 cm x 5.7 cm x 5.3 cm. Normal renal cortex. The right cortex measures 1.4 cm. There is no demonstrated renal mass or cyst. There is no right hydronephrosis. US/Abdomen Limited IMPRESSION: Fatty infiltration of the liver. Electronically Signed: Abelino Luna MD at 11:11 EDT , Service support ,
== END ==
PROVIDERS: PCP Family Medicine; Visit Provider Family Medicine
DX: R10.9 Unspecified abdominal pain (principal)
CPT/HCPCS: 76705

== ENCOUNTER → 2020-10-15 11:54 | Outpatient (CLI) | payer MEDICARE, OTHER, SELFPAY ==
--- NOTE | 2020-10-15 12:01 | RAD_ITS ---
STUDY: X-RAY - LUMBAR SPINE REASON FOR EXAM: Male, 79 years old. Unsteadiness. TECHNIQUE: 5 view(s) of the lumbar spine were obtained. COMPARISON: None FINDINGS: Osteopenia. Normal lumbar lordosis. There is no substantial scoliosis. There is a normal alignment of the vertebrae. Diffuse facet sclerosis. Normal vertebral bodies and endplates. Intervertebral disc space narrowing diffusely with osteophytes most marked at L1-L2 and L4-L5. Vascular calcification. RAD/L/S Spine Min 4 Views IMPRESSION: Osteopenia with diffuse moderate lumbar spondylosis. No acute abnormality or evidence of fusion or erosive changes. Electronically Signed: Robb Wan MD at 10:10 EDT , Service support ,
[2020-10-15 15:17] LABS: Erythrocyte Sedimentation Rate 7 mm/hr (0-20)
[2020-10-17 16:08] LABS: Endomysial Antibody IgA Negative (Negative)
[2020-10-17 17:55] LABS: Deamidated Gliadin IgA 5 units (0-19); Deamidated Gliadin IgG 2 units (0-19); Immunoglobulin A 91 mg/dL (61-437); t-Transglutaminase IgA <2 U/mL (0-3)
[2020-10-19 03:07] LABS: Beef <0.10 kU/L (Class 0); Corn <0.10 kU/L (Class 0); Egg, Whole <0.10 kU/L (Class 0); Milk (Cow) <0.10 kU/L (Class 0); Peanut <0.10 kU/L (Class 0); Pork <0.10 kU/L (Class 0); Soybean <0.10 kU/L (Class 0); Wheat <0.10 kU/L (Class 0)
[2020-10-19 14:25] LABS: Chocolate <0.10 kU/L (Class 0)
== END ==
PROVIDERS: PCP Family Medicine; Referring Provider Family Medicine; Visit Provider Family Medicine
DX: R26.81 Unsteadiness on feet (principal); K58.9 Irritable bowel syndrome, unspecified
CPT/HCPCS: 36415; 72110; 82784; 83516; 85652; 86003; 86005; 86255

== ENCOUNTER → 2020-10-21 16:46 | Outpatient (CLI) | payer MEDICARE, OTHER, SELFPAY ==
--- NOTE | 2020-10-21 16:48 | CT_ITS ---
STUDY: CT BRAIN WITHOUT CONTRAST REASON FOR EXAM: Male, 79 years old. Gait instability RADIATION DOSAGE (If Supplied By Facility): CTDIvol = ( 4499 ) mGy, DLP = ( 779.24 ) mGycm TECHNIQUE: Transaxial CT imaging of the brain was performed without administration of intravenous contrast material. Individualized dose optimization techniques were used for this CT. COMPARISON: No relevant priors. FINDINGS: Normal soft tissue structures. Normal calvarium. There is mild cerebral atrophy with widening of the extra-axial spaces and ventricular dilatation. Normal white matter tracts of the cerebral hemispheres. Normal basal ganglia and thalami. Normal brainstem. Normal cerebellum. There is no intracranial hemorrhage. There are no findings of an acute ischemic infarction. There is a 1.5 cm polyp or retention cyst along the anterior medial aspect of the left maxillary sinus. CT/Brain/Head without Contrast IMPRESSION: Chronic involutional changes of the brain. Electronically Signed: Abelino Luna MD at 8:46 EDT , Service support ,
== END ==
PROVIDERS: PCP Family Medicine; Referring Provider Family Medicine; Visit Provider Family Medicine
DX: R26.81 Unsteadiness on feet (principal)
CPT/HCPCS: 70450

== ENCOUNTER → 2020-10-25 12:16 | Outpatient (CLI) | payer MEDICARE, OTHER, SELFPAY ==
[2020-10-25 13:04] LABS: Erythrocyte Sedimentation Rate 4 mm/hr (0-20)
[2020-10-25 13:37] LABS: Thyroid Stim Hormone (TSH) 0.73 uIU/mL (0.358-3.74)
== END ==
PROVIDERS: PCP Family Medicine; Referring Provider Internal Medicine Gastroenterology; Visit Provider Internal Medicine Gastroenterology
DX: R19.7 Diarrhea, unspecified (principal)
CPT/HCPCS: 36415; 84443; 85652

== ENCOUNTER → 2020-10-28 | Outpatient (CLI) | payer MEDICARE, OTHER, SELFPAY ==
[2020-10-29 19:35] LABS: Giardia Lamblia, Stool EIA Negative (Negative)
[2020-10-30 19:33] LABS: Calprotectin, Stool 148 ug/g (0-120)
== END | disposition home or self-care (01) ==
LOC: LABSPEC 10:11
PROVIDERS: PCP Family Medicine; Referring Provider Internal Medicine Gastroenterology; Visit Provider Internal Medicine Gastroenterology
DX: R19.7 Diarrhea, unspecified (principal)
CPT/HCPCS: 83993; 87329; 87493; 87506

== ENCOUNTER 2020-11-12 11:36 | Day surgery (SDC) | payer MEDICARE, OTHER, SELFPAY ==
[2020-11-12] VITALS (7 sets, daily range): BP systolic 81–149; BP diastolic 58–88; PULSE 52–77; RESP 14–16; TEMP 36.1–36.5; O2SAT 96–99; BMI 24.7
[2020-11-12] MEDS: Lactated Ringers 1,000 ML 100 ML IV (12:24)
--- NOTE | 2020-11-12 12:45 | COLBX_PTH ---
PATIENT: YAS ROSA LOC: EN U#:[id number] AGE/SX: 79/M ROOM: RE11/12/[address]: Dr. Favio Austin DO : 1940 BED: DIS: 11/12/2020 SPEC #: [id number] RECD: 11/12/20 15:30 STATUS: HOANG HOWARD #: [id number] MADY: 11/12/20 12:[address]: Favio Austin DEPT: SURGICAL PATHOLOGY RECD BY: Ismael Luna ENTERED: 11/13/20 09:49 SP TYPE: COLON BX OTHR DR: Dr. Kevin Menjivar MD Tissues: A - Esophageal mucous membrane B - COLON BIOPSY C - Ileum, NOS D - COLON BIOPSY Procedures: Special Stain Group II Surgery Specimen Level IV Alcian Blue/PAS (control) HEADER OPERATION: Colonoscopy, EGD ([facility]) PRE-OP DIAGNOSIS: GERD TISSUE SUBMITTED: A ? Biopsy distal esophagus, B ? Biopsy gastric polyp, C ? Terminal ileum biopsy, D ? Random colonic biopsies MICROSCOPIC DIAGNOSIS A. Distal esophagus, biopsy: Fragments of gastroesophageal mucosa with mild chronic inflammation. Intestinal metaplasia (goblet cell metaplasia) not identified. See comment. B. Gastric polyp, biopsy: A fragment of gastric mucosa with minimal chronic inflammation. See comment. C. Terminal ileum, biopsy: Fragments of small intestinal mucosa, no pathologic diagnosis. D. Colon, random biopsy: Fragments of colonic mucosa, no pathologic diagnosis. SJ:kulwant 11/14/2020 COMMENT A. Alcian blue/PAS stain with matched control is used in the evaluation of the specimen. B. Fundic gland polyp or hyperplastic/inflammatory polyp changes are not identified. MICROSCOPIC DESCRIPTION Slides are reviewed. GROSS DESCRIPTION A - Received in fixative is one container labeled with the patient's name and designated biopsy distal esophagus. The specimen consists of two irregular fragments of light angel soft tissue that in aggregate measure 0.6 x 0.5 x 0.1 cm. The specimen is totally submitted in one cassette. B - Received in fixative is one container labeled with the patient's name and designated biopsy submucosal mass at incisor. The specimen consists of one irregular fragment of light angel soft tissue that measures 0.5 x 0.2 x 0.1 cm. The specimen is totally submitted in one cassette. C - Received in fixative is one container labeled with the patient's name and designated terminal ileum biopsy. The specimen consists of two irregular fragments of light angel soft tissue that in aggregate measure 0.5 x 0.3 x 0.1 cm. The specimen is totally submitted in one cassette. D - Received in fixative is one container labeled with the patient's name and designated random colonic biopsy. The specimen consists of multiple irregular fragments of light angel soft tissue that in aggregate measure 1.5 x 1 x 0.1 cm. The specimen is totally submitted in one cassette. / SJ:rg 11/13/20 TC:3 CPT: 07274 x4, 73132
--- NOTE | 2020-11-12 13:11 | HP.PCM_ITS ---
History and Physical Date of Admission: 11/12/20 Chief Complaint: IBS Details: YAS ROSA, is a 79 M who presents to the office today for symptoms include nausea, diarrhea, change in bowel habits. He also complains constipation, abdominal pain, bloating, dysphagia. Also starting this early summer he started having difficulty with his gait/movement: it's like I get up and I can't get moving, mostly at night. With this he has increased weakness on the L side with numbness and tingling in the extremities and his arms feel like lead. Gait and weakness/numbness started at the beginning of summer and occur mostly during the night. Has both constipation and diarrhea - has more diarrhea than constipation. He also complains of esophageal dysphagia. if he eats softer foods it helps; started about a month ago. Appetite has been very poor and eats only because he has to; started the beginning of summer. He weighed 189lbs in the beginning of summer, currently 168. He notes discomfort in the mid upper abdomen it feels like you took a wash rag and wetted and rung it out; it feels wrung. Feels the urge to go, but cannot go even with straining. Colonoscopy [place] [address] Gupta - there were little spots circled on the paper but she did not explain them to him. It is because of his symptoms that he is not going out much because he has to have access to a restroom - making it hard to do things. In the last month he has started Linzess and Omeprazole. Omperazole has started to help. Also started Prozac three months and feels this has helped some. He had a CAT scan of the abdomen pelvis and it showed some a lot of liquid stool throughout his colon and small bowel consistent with a diarrheal illness. He has not had a stool check for infection. At this time he does not want to undergo endoscopy or colonoscopy. He does agree to have biochemical testing and stool testing. ROS Const Constitutional: Positive for fatigue, weakness and weight change (loss) Eyes Eyes: No change in vision ENT ENT: Positive for tinnitus, difficulty swallowing and hoarseness; No tongue swelling or throat swelling Resp Respiratory: No cough or shortness of breath Cardio Cardiology: Positive for dyspnea on exertion Gastro GI: Positive for abdominal pain, bloating, change in bowel habits, diarrhea, difficulty swallowing and nausea/dyspepsia Genitourinary Male: No difficulty urinating or burning urination Musc Musculoskeletal: Positive for abnormal gait, joint pain, back pain, muscle cramps, muscle weakness, numbness, stiffness, tingling, Arthritis and leg pain at night Skin Skin: No hair loss in leg, yellowing of the eye, itchy eyes, rash, skin ulcer or skin swelling Neuro Neurology: Positive for abnormal gait, weakness, numbness and tingling; No confusion or memory loss Psych Psychiatric: No anxiety, No confusion and No memory loss Endo Endocrine: Positive for fatigue Aller/Imm Allergy/Immunologic: No itchy eyes, throat swelling or tongue swelling Marko/Lymp Hematologic/Lymphatic: Positive for easy bruising Exam Const General: cooperative and comfortable Nutritional Appearance: average body habitus and well nourished HENMT Head: normal to inspection Ears: hearing grossly normal bilaterally Nose: external nose normal Face and sinus: normal facial exam Mouth: oral mucosae normal Throat: posterior oropharynx normal Eyes General: appearance normal, both eyes and all related structures Neck Neck: normal visual inspection Chest Chest palpation & inspection: normal inspection of the chest and normal palpation of entire chest wall Resp Effort & Inspection: normal respiratory effort Auscultation: Bilateral: Clear to Auscultation Cardio Palpation: normal PMI Rate: regular rate Rhythm: regular rhythm GI Inspection: normal to inspection Auscultation: normal bowel sounds Percussion: normal to percussion Palpation: no hepatosplenomegaly Rectal Exam: abnormal sphincter tone Other: Internal and external hemorrhoids Skin General: no rashes or lesions noted Neuro General: patient alert Extrem General: normal to inspection Psych Affect: normal affect Quality Reporting Tobacco Screening ([facility] 138) Smoking Status: Never smoker Assessment and Plan Assessment and Plan (1) Diarrhea: Status: Acute Orders: Orders: Calprotectin, Stool Today CDIFF (PCR) Today ENTERIC PATHOGEN PANEL STOOL Today Giardia Lamblia, Stool EIA Today Thyroid Stim Hormone (TSH) Today Erythrocyte Sed Rate Today Plan - Dr. Stahl Friend, DO: I reviewed the CT scan with the patient in the room. He did have lot of fluid throughout his GI tract. I will check a stool calprotectin, C. difficile, stool for enteric pathogens, stool for Giardia. If the studies are negative because of his weight loss he should definitely undergo upper and lower endoscopy. I told him that his weight loss and diarrhea could be secondary to an underlying depression. He says that he possibly has a problem with depression and the medicines that he is currently taking are not helping him. He also states that the medicines have been recently increased and he is hopeful that it will help him in the future. I explained to him that diarrhea can come from the depression medicine fluoxetine. However I am concerned about the 20 pound weight loss that he has had in the recently. (2) Dysphagia: Status: Acute Plan - Dr. Stahl Friend, DO: Patient does have a small hiatal hernia that is seen on his imaging of his abdomen pelvis. I am not sure if this is contributing to his esophageal dys phagia. He should undergo upper endoscopy to look for strictures, scars or narrowings that would contribute to his esophageal dysphagia. (3) Abdominal pain: Status: Acute Plan - Dr. Stahl Friend, DO: He should undergo upper endoscopy to evaluate his upper GI tract for peptic ulcer disease secondary to H. pylori, gastritis or duodenitis. Also he should be checked for inflammation of the small bowel as been seen on imaging. Coding Level of Care Code Off vis,new,level 4 Diagnoses Diarrhea R19.7 Dysphagia R13.10 Abdominal pain R10.9 This is an updated H&P from when the patient was seen in office
--- NOTE | 2020-11-12 13:52 | OP.EGD_ITS ---
Patient Name: Segundo Peterson Procedure Date: 11/12/2020 1:00 PM Date of : 1940 Age: 79 Procedure: Upper GI endoscopy Indications: Epigastric abdominal pain Providers: Favio Austin DO Referring MD: Favio Austin DO Medicines: Monitored Anesthesia Care Patient Profile: This is a 79 year old male. Refer to note in patient chart for documentation of history and physical. Patient has symptoms. The symptoms first began July. He is status post colonoscopy (normal) five years ago. Complications: No immediate complications. Procedure: Pre-Anesthesia Assessment: - Prior to the procedure, a History and Physical was performed, and patient medications and allergies were reviewed. The patient is competent. The risks and benefits of the procedure and the sedation options and risks were discussed with the patient. All questions were answered and informed consent was obtained. Patient identification and proposed procedure were verified by the physician in the pre-procedure area. Mental Status Examination: alert and oriented. Airway Examination: normal oropharyngeal airway and neck mobility. Respiratory Examination: clear to auscultation. CV Examination: normal. Prophylactic Antibiotics: The patient does not require prophylactic antibiotics. Prior Anticoagulants: The patient has taken no previous anticoagulant or antiplatelet agents. ASA Grade Assessment: II - A patient with mild systemic disease. After reviewing the risks and benefits, the patient was deemed in satisfactory condition to undergo the procedure. The anesthesia plan was to use moderate sedation / analgesia (conscious sedation). Immediately prior to administration of medications, the patient was re-assessed for adequacy to receive sedatives. The heart rate, respiratory rate, oxygen saturations, blood pressure, adequacy of pulmonary ventilation, and response to care were monitored throughout the procedure. The physical status of the patient was re-assessed after the procedure. After obtaining informed consent, the endoscope was passed under direct vision. Throughout the procedure, the patient's blood pressure, pulse, and oxygen saturations were monitored continuously. The Endoscope was introduced through the mouth, and advanced to the second part of duodenum. The upper GI endoscopy was accomplished without difficulty. The patient tolerated the procedure well. Moderate Sedation: Moderate (conscious) sedation was administered by the endoscopy nurse and supervised by the endoscopist. The patient's oxygen saturation, heart rate, blood pressure and response to care were monitored. Scope In: 1:16:31 PM Scope Out: 1:21:28 PM Total Procedure Duration Time 0 hours 4 minutes 57 seconds Findings: LA Grade B (one or more mucosal breaks greater than 5 mm, not extending between the tops of two mucosal folds) esophagitis with no bleeding was found. Biopsies were taken with a cold forceps for histology. Verification of patient identification for the specimen was done. Estimated blood loss was minimal. A single 5 mm sessile polyp with no stigmata of recent bleeding was found in the stomach. Biopsies were taken with a cold forceps for histology. Verification of patient identification for the specimen was done. Estimated blood loss was minimal. The second portion of the duodenum was normal. Impression: - LA Grade B reflux esophagitis. Biopsied. - A single gastric polyp. Biopsied. - Normal second portion of the duodenum. - LA Grade A reflux esophagitis. Biopsied. - Gastric polyps. - LA Grade B reflux esophagitis. Biopsied. - A single gastric polyp. Resected and retrieved. Biopsied. - Normal duodenal bulb. Recommendation: - Discharge patient to home. - Resume previous diet. - Continue present medications. - Await pathology results. - Repeat upper endoscopy in 1 year for surveillance. - Return to GI office in 1 week. Procedure Code(s): --- Professional --- 34608, Esophagogastroduodenoscopy, flexible, transoral; with biopsy, single or multiple CPT copyright 2017 [employer]. All rights reserved. The codes documented in this report are preliminary and upon brush cleaner review may be revised to meet current compliance requirements. Favio Austin DO 11/12/2020 1:52:09 PM This report has been signed electronically. Number of Addenda: 1 Note Initiated On: 11/12/2020 1:00 PM Addendum Number: 1 Addendum Date: 10/09/2021 4:17:15 PM MAC was used instead of moderate sedation for this patient. Favio Austin DO 10/09/2021 4:17:22 PM This report has been signed electronically.
--- NOTE | 2020-11-12 13:53 | OP.CCLET_ITS ---
10/09/2021 William Menjivar [address] [place] [address] Re : Upper GI endoscopy procedure for Segundo Peterson Dear Dr. Menjivar This procedure was performed on Thursday, November 12, 2020. My impressions and recommendations are as follows: Impressions : - LA Grade B reflux esophagitis. Biopsied. - A single gastric polyp. Biopsied. - Normal second portion of the duodenum. - LA Grade A reflux esophagitis. Biopsied. - Gastric polyps. - LA Grade B reflux esophagitis. Biopsied. - A single gastric polyp. Resected and retrieved. Biopsied. - Normal duodenal bulb. Recommendations : - Discharge patient to home. - Resume previous diet. - Continue present medications. - Await pathology results. - Repeat upper endoscopy in 1 year for surveillance. - Return to GI office in 1 week. My findings are described in the full procedure note, which is enclosed. If I can be of further assistance, please feel free to contact me at . Sincerely, Favio Austin, 11/12/2020 1:52:09 PM This report has been signed electronically.
--- NOTE | 2020-11-12 13:59 | OP.COLON_ITS ---
Patient Name: Segundo Peterson Procedure Date: 11/12/2020 1:25 PM Date of : 1940 Age: 79 Procedure: Colonoscopy Indications: Chronic diarrhea Providers: Favio Austin DO Referring MD: Favio Austin DO Patient Profile: This is a 79 year old male. Refer to note in patient chart for documentation of history and physical. Patient has symptoms. The symptoms first began July. He is status post colonoscopy (normal) five years ago. He is status post colonoscopy (normal) five years ago. This is a 79 year old male. Refer to note in patient chart for documentation of history and physical. Last Colonoscopy: 5 years ago. Complications: No immediate complications. Procedure: Pre-Anesthesia Assessment: - Prior to the procedure, a History and Physical was performed, and patient medications and allergies were reviewed. The patient is competent. The risks and benefits of the procedure and the sedation options and risks were discussed with the patient. All questions were answered and informed consent was obtained. Patient identification and proposed procedure were verified by the physician in the pre-procedure area. Mental Status Examination: alert and oriented. Airway Examination: normal oropharyngeal airway and neck mobility. Respiratory Examination: clear to auscultation. CV Examination: normal. Prophylactic Antibiotics: The patient does not require prophylactic antibiotics. Prior Anticoagulants: The patient has taken no previous anticoagulant or antiplatelet agents. ASA Grade Assessment: II - A patient with mild systemic disease. After reviewing the risks and benefits, the patient was deemed in satisfactory condition to undergo the procedure. The anesthesia plan was to use moderate sedation / analgesia (conscious sedation). Immediately prior to administration of medications, the patient was re-assessed for adequacy to receive sedatives. The heart rate, respiratory rate, oxygen saturations, blood pressure, adequacy of pulmonary ventilation, and response to care were monitored throughout the procedure. The physical status of the patient was re-assessed after the procedure. After I obtained informed consent, the scope was passed under direct vision. Throughout the procedure, the patient's blood pressure, pulse, and oxygen saturations were monitored continuously. The pediatric colonoscope was introduced through the anus and advanced to the cecum, identified by the appendiceal orifice, ileocecal valve and palpation. The colonoscopy was performed without difficulty. The patient tolerated the procedure well. The entire colon was well visualized. Moderate Sedation: Moderate (conscious) sedation was administered by the endoscopy nurse and supervised by the endoscopist. The patient's oxygen saturation, heart rate, blood pressure and response to care were monitored. Scope In: 1:26:37 PM Scope Withdrawal Time 0 hours 10 minutes 32 seconds Scope Out: 1:40:46 PM Total Procedure Duration Time 0 hours 14 minutes 9 seconds Findings: The perianal and digital rectal examinations were normal. Multiple large diffuse angioectasias without bleeding were found in the rectum. The exam was otherwise without abnormality on direct and retroflexion views. The terminal ileum appeared normal. Random biopsies were taken throughout the colon to look for microscopic colitis. Random biopsies were also taken in the terminal ileum. Impression: - Multiple non-bleeding colonic angioectasias. - The examination was otherwise normal on direct and retroflexion views. - The examined portion of the ileum was normal. - No specimens collected. Recommendation: - Discharge patient to home. - Resume previous diet. - Continue present medications. - Await pathology results. - Repeat colonoscopy in 5 years for surveillance. - Return to GI office in 1 week. Procedure Code(s): --- Professional --- 58330, Colonoscopy, flexible; diagnostic, including collection of specimen(s) by brushing or washing, when performed (separate procedure) CPT copyright 2017 [employer]. All rights reserved. The codes documented in this report are preliminary and upon fire captain marine review may be revised to meet current compliance requirements. Favio Austin DO 11/12/2020 1:59:07 PM This report has been signed electronically. Number of Addenda: 1 Note Initiated On: 11/12/2020 1:25 PM Addendum Number: 1 Addendum Date: 10/09/2021 4:17:35 PM MAC was used instead of moderate sedation for this patient. Favio Austin DO 10/09/2021 4:17:39 PM This report has been signed electronically.
--- NOTE | 2020-11-12 14:00 | OP.CCLET_ITS ---
10/09/2021 William Menjivar [address] [place] [address] Re : Colonoscopy procedure for Segundo Peterson Dear Dr. Menjivar This procedure was performed on Thursday, November 12, 2020. My impressions and recommendations are as follows: Impressions : - Multiple non-bleeding colonic angioectasias. - The examination was otherwise normal on direct and retroflexion views. - The examined portion of the ileum was normal. - No specimens collected. Recommendations : - Discharge patient to home. - Resume previous diet. - Continue present medications. - Await pathology results. - Repeat colonoscopy in 5 years for surveillance. - Return to GI office in 1 week. My findings are described in the full procedure note, which is enclosed. If I can be of further assistance, please feel free to contact me at . Sincerely, Favio Austin, 11/12/2020 1:59:07 PM This report has been signed electronically.
== END 2020-11-12 14:29 ==
LOC: EN 11:36 → AC 11:37
PROVIDERS: PCP Family Medicine; Referring Provider Internal Medicine Gastroenterology; Visit Provider Internal Medicine Gastroenterology
PROC: 0DJD8ZZ Inspection of Lower Intestinal Tract, Via Natural or Artificial Opening Endoscopic (ICD-10-PCS; CPT 45378; principal; 2020-11-12 12:40)
DX: K31.7 Polyp of stomach and duodenum (principal); K55.20 Angiodysplasia of colon without hemorrhage; K58.9 Irritable bowel syndrome, unspecified; R13.10 Dysphagia, unspecified; K20.90 Esophagitis, unspecified without bleeding; K44.9 Diaphragmatic hernia without obstruction or gangrene; Z20.822 Contact with and (suspected) exposure to COVID-19; F32.A Depression, unspecified; Z79.899 Other long term (current) drug therapy
CPT/HCPCS: 43239; 45380; 87426; 88305; 88313; C9803; J7120; J2405

== ENCOUNTER → 2022-08-24 | Outpatient (CLI) | payer MEDICARE, OTHER, SELFPAY ==
--- NOTE | 2022-08-24 13:57 | RAD_ITS ---
STUDY: X-RAY - CERVICAL SPINE REASON FOR EXAM: Male, 81 years old. Right shoulder pain. TECHNIQUE: 7 view(s) of the cervical spine were obtained. COMPARISON: September 11, 2020. FINDINGS: Osteopenia. Normal anterior atlantoaxial articulation. Normal odontoid process. Normal cervical lordosis. Stable diffuse moderate uncovertebral and facet sclerosis. Intervertebral disc space narrowing at C3-4, C4-5, C5-6, C6-7 and C7-T1. Anterior bony neural foraminal encroachment at C3-4, C4-5, C5-6 on the right and C3-4, C4-5, C5-6 and C6-7 on the left. Left carotid calcification. RAD/Cerv Spine Obl/Flex/Ext Comp IMPRESSION: Moderate cervical spondylosis, relatively unchanged from prior study. No acute abnormality or erosive changes. Electronically Signed: Robb Wan MD at 15:56 EDT ,
--- NOTE | 2022-08-24 13:57 | RAD_ITS ---
STUDY: X-RAY - RIGHT SHOULDER REASON FOR EXAM: Male, 81 years old. Shoulder pain and weakness. TECHNIQUE: 4 view(s) of the shoulder. COMPARISON: None. FINDINGS: Osteopenia. Mild arthrosis of the glenohumeral joint. Mild arthrosis of the AC joint. Normal acromion. Normal humeral head and visualized proximal humerus. Normal soft tissues. Normal visualized pulmonary apex. RAD/Shoulder min 2 Views IMPRESSION: Osteopenia with mild arthrosis of the glenohumeral and acromioclavicular joints. No other abnormality. Electronically Signed: Robb Wan MD at 15:01 EDT ,
== END | disposition home or self-care (01) ==
PROVIDERS: PCP Family Medicine; Referring Provider Family Medicine; Visit Provider Family Medicine
DX: M25.511 Pain in right shoulder (principal)
CPT/HCPCS: 72052; 73030

== ENCOUNTER 2022-10-14 10:00 | Outpatient (RCR) | payer MEDICARE, OTHER, SELFPAY ==
--- NOTE | 2022-09-14 08:50 | HP.PTEVAL_ITS ---
Patient's Visit Information Visit Information Visit Information: YAS ROSA is a 81 year old M referred to Physical Therapy by Dr. William Menjivar MD with a diagnosis of B shoulder pain , cervical DDD. Date of Evaluation: 09/14/22 Physical Therapist: Keanu Holt, DPT, OCS, CSCS Visit Plan Frequency: 2-3x /Week Duration: 4 Weeks Plan: 2-3x/week for 4 weeks 1. MH and STM UT and neck/shoulders, TENS if helpful 2. shoulder AAROM-AROM, strengthening ex to HEP Postural correction Given supine stick flexion, er, scap circles, cervical retraction and appropr posture today. Subjective Subjective: Dr. Menjivar sent over. Sees him for all kinds of things. Arms and legs are numb and not sure why. Pain is constant B shoulders L >R and upper back between shoulder blades feels like a hot poker. Not sure what makes it worse. Those have been painful for 6 months. Not sure why it started. Might be apinched nerve. Spends day walking house, visiting. Does minimal yard/house work. No worse after spackling yesterdaay. Just feels lousy pain most of time. Woke up this morning with pain. Normally worse in the am Never can sleep all night. Not employed. Hobbies: club shooter but not anymore due to discomfort. No regular exercise. Lives in apartment. No steps. Lives alone. Basic ADLS are all getting done. Pain back pain.: Pain Intensity (Out of 10): 9 Pain Intensity Range: 2 and 9 B shoulders: Pain Intensity (Out of 10): 8 Pain Intensity Range: 2 and 9 Objective Objective: Walks I into PT with good balance. Trasnfers chair and bed I. Posture is forward head and protracted scapula. Mod tender through UT and rhomboids at B scap. Also tender L shoulder g-h joint. Muscle wasting apparent L >R shoulder to palpation. wrist and elbow strength 4-/5 B. Shoulder [id number] L er 3, IR 4-, flexion and abduction 3 all with increased soreness. r side 3+. Good scap motion B. cervical aROM is 55 extension, 60 B rotation both ignacio than anticipated with slight pain endrange in L neck. - c/s compression test. reflexes 1/3 bi and tri B UE sensation WNL to gross light touch although he c/o intermittent numbness hands and feet. - alcantara, - ext rotation lag, slight + L drop arm. Balance/Special Test Scores Quick DASH Score: 63.6350 Goals Goal 1:: patient pain level at rest 2/10 at worst and 75% better in shoulder and neck Goal Time Frame: 4-6 Weeks Goal 2:: Patient sleep without waking at night Goal Time Frame: 4-6 Weeks Goal 3:: patient able to move at home without noticing shoulders or neck Goal Time Frame: 4-6 Weeks Goal 4:: quick dash score 18 or less Goal Time Frame: 4-6 Weeks Rehabilitation Potential Physical Therapy Diagnosis: Multiple medical issues including degeneration neck, shoulders and cannot rule out nerve problems with muscle wasting or RC issues L. Causing him miserable pain and sedentarism. Rehabilitation Potential: Questionable Anticipated Interventions Patient/Client Instruction: Educate patient on: Condition and Plan of Care For the Purpose of:: To decrease pain, To decrease swelling/inflammation, To increase ROM, To improve nutrient delivery to tissue, To improve muscle performance and motor function and To improve ability of physical actions for home/community/work/leisure Therapeutic Exercise to Include: Strength training, Postural training, Flexibilty training, Passive ROM and Active ROM For the Purpose of:: To decrease pain, To decrease swelling/inflammation, To increase ROM, To improve nutrient delivery to tissue, To improve muscle performance and motor function and To increase tolerance to activity/condition/position Manual Therapy Techniques to Include: Passive ROM and Soft tissue mobilization For the Purpose of:: To decrease pain and To increase ROM TENS: Yes Thermo therapy (hot pack): Yes For the Purpose of:: To decrease pain Text: Thank you for the opportunity to evaluate your patient. For Medicare and Medicare HMO plans, please review the plan of care and approve it. It will need to be FAXED BACK to us at [phone] for Medicare purposes. For Medicare only, by signing this I certify the plan of care. Please let me know if there are questions or concerns regarding this plan of care. Physician Signature: __Date:
--- NOTE | 2022-10-14 10:45 | HP.PTDCSUM_ITS ---
Discharge Summary D/C summary: It has been my pleasure to treat YAS ROSA referred by Dr. William Menjivar MD, with the diagnosis of B shoulder pain , cervical DDD for a total of 12 visit(s). Discharge Date: 10/14/22 Please see the following information for a summary of their discharge status. Subjective Subjective: No improvement. Both shoulders still hurt, L arm numbness most of time. Legs get numb at times. All these things without warning or reason. Activities are still avoiding shooting sports, has not been able to draw b/c of this. Numbness limits his skill. Pain back pain.: Pain Intensity (Out of 10): 8 B shoulders: Pain Intensity (Out of 10): 4 Overall Improvement % Improvement: 10 Objective Objective/Function: Posture is still extremem forward head and he is try retraction but not having much luck. R shoulder elevation is excellent and full, L shoulder to about 100 and then weak and painful anteriorly. PROM L shoulder full but painful end range. Cervical aROM is limited in retraction, 55 extension and 65 rotations without i ncreased pain. main problems are increasing numbness in arms and R leg and continued spine and L shoulder pain none of which are improving. Goals Goal 1:: patient pain level at rest 2/10 at worst and 75% better in shoulder and neck Goal Progress: Not Progressing Goal 2:: Patient sleep without waking at night Goal Progress: Not Progressing Goal 3:: patient able to move at home without noticing shoulders or neck Goal Progress: R shoulder better only Goal 4:: quick dash score 18 or less Goal Progress: Not Progressing Plan Plan: d/c, back to doctor for next step(MRI neck to further delineate problem?) D/C Information Discharge Comments: Pt to get back with doctor due to lack of improvement for next appropriate medical step. d/c sentence: If there are questions or concerns regarding this patient's physical therapy, please feel free to call me at [phone]. Thank you for the referral of this patient. Sincerely, Keanu Holt, DPT, OCS, CSCS Balance/Gait/Functional tests Balance/Special Test Scores Oswestry Neck Score: 31 Quick DASH Score: 38.6350 Improvement % Improvement: 10
== END 2022-10-14 11:09 | disposition home or self-care (01) ==
LOC: PT 10:00
PROVIDERS: PCP Family Medicine; Referring Provider Family Medicine; Visit Provider Family Medicine
DX: M25.512 Pain in left shoulder (principal); M25.511 Pain in right shoulder; M50.30 Other cervical disc degeneration, unspecified cervical region
CPT/HCPCS: 97014; 97110; 97140; 97163; 97164; 97530; G0283

== ENCOUNTER → 2022-10-22 | Outpatient (CLI) | payer MEDICARE, OTHER, SELFPAY ==
[2022-10-22 15:07] LABS: Absolute Lymphocyte Count 2.36 X10^3/uL (0.83-4.51); Absolute Neutrophil Count 3.5 X10^3/uL (2.0-7.7); Basophil# 0.03 X10^3/uL; Basophil% 0.5 % (0-1); Eosinophil# 0.16 X10^3/uL; Eosinophils% 2.4 % (0-5); Hematocrit 46.3 % (40-54); Hemoglobin 15.5 g/dL (13.0-16.5); Lymphocyte # 2.36 X10^3/ul (0.83-4.51); Lymphocyte % 35.8 % (19-41); Mean Corp Hgb Conc 33.5 g/dL (32-36); Mean Corpuscular Hgb 30.2 pg (27.0-32.0); Mean Corpuscular Volume 90.1 fL (80-94); Mean Platelet Vol. 8.8 fl (6.2-12.0); Monocyte# 0.51 X10^3/uL; Monocyte% 7.7 % (0-10); NRBC Flagged by Analyzer 0 % (0-5); Neutrophil # 3.51 X10^3/uL (2.7-7.7); Neutrophil % 53.3 % (47-70); Platelet Count 210 K/mm3 (150-450); RBC Distribution Width CV 12.5 % (11.6-14.6); RBC Distribution Width SD 41.8 fl (35.1-43.9); Red Blood Count 5.14 M/mm3 (4.6-6.2); White Blood Count 6.6 K/mm3 (4.4-11.0)
[2022-10-22 15:57] LABS: ALB/GLOB Ratio 1.3 RATIO (0.9-2.4); AST(SGOT) 20 U/L (15-37); Alanine Aminotransfer ALT/SGPT 28 U/L (16-61); Albumin, Serum 3.8 g/dL (3.2-5.0); Alkaline Phosphatase 98 U/L (45-117); Anion Gap 4 (5-15); BUN 10 mg/dL (7-18); BUN/Creat Ratio 12.5 RATIO (10-20); CRP < 2.90 mg/L (0.0-3.0); Calcium,Total 8.8 mg/dL (8.5-10.1); Chloride 107 mmol/L (98-107); Cholesterol 171 mg/dL (200); EST Glomerular Filtration Rate 99 mL/min (>60); Est Glom Filt Rate - Afr Amer 119 mL/min (>60); Ferritin 168 ng/mL (26-388); Glucose 94 mg/dL (74-106); High Density Lipoprotein 52 mg/dL; Iron 75 ug/dL (65-175); Protein, Total 6.8 g/dL (6.4-8.2); Rheumatoid Factor < 10.0 IU/mL (<15); Sodium Level 138 mmol/L (136-145); Thyroid Stim Hormone (TSH) 1.22 uIU/mL (0.358-3.74); Triglycerides 144 mg/dL; Very Low Density Lipoprotein 29 mg/dL (5-40)
[2022-10-22 16:04] LABS: Vitamin B12 266 pg/mL (211-911); Vitamin D,25 Hydroxy 28.9 ng/mL
[2022-10-22 16:06] LABS: Erythrocyte Sedimentation Rate 10 mm/hr (0-20)
[2022-10-26 13:07] LABS: ANTINUCLEAR ANTIBODIES DIRECT Positive (Negative)
== END | disposition home or self-care (01) ==
LOC: MTLAB 11:12
PROVIDERS: PCP Family Medicine; Visit Provider Family Medicine
DX: R20.2 Paresthesia of skin (principal); F32.A Depression, unspecified; E55.9 Vitamin D deficiency, unspecified; I10 Essential (primary) hypertension; Z13.220 Encounter for screening for lipoid disorders
CPT/HCPCS: 36415; 80053; 80061; 82306; 82607; 82728; 83540; 84403; 84443; 85025; 85652; 86038; 86140; 86431

== ENCOUNTER 2024-02-26 09:47 | Emergency (ER) | payer MEDICARE, OTHER, SELFPAY ==
[2024-02-26 09:48] VITALS: BP 189/89; PULSE 78; RESP 18; TEMP 37.2; O2SAT 100; BMI 25.8
--- NOTE | 2024-02-26 10:34 | CT_ITS ---
STUDY: CT BRAIN WITHOUT CONTRAST REASON FOR EXAM: Male, 83 years old. Head trauma RADIATION DOSAGE (If Supplied By Facility): CTDIvol = ( 44.99 ) mGy, DLP = ( 796.11 ) mGycm TECHNIQUE: Transaxial CT imaging of the brain was performed without administration of intravenous contrast material. Individualized dose optimization techniques were used for this CT. COMPARISON: October 21, 2021 FINDINGS: Normal soft tissue structures. Normal calvarium. There is mild cerebral atrophy with widening of the extra-axial spaces and ventricular dilatation. Normal white matter tracts of the cerebral hemispheres. Normal basal ganglia and thalami. Normal brainstem. Normal cerebellum. There are stable calculations along the falx and tentorium. There is no intracranial hemorrhage. There are no findings of an acute ischemic infarction. Normal visualized paranasal sinuses. CT/Brain/Head without Contrast IMPRESSION: Chronic involutional changes of the brain. Electronically Signed: Elias Escalera MD at 12:24 EST ,
--- NOTE | 2024-02-26 10:35 | EDS_ITS ---
HPI HPI - Fall History of Present Illness Chief Complaint: Fall Detail of Chief Complaint: Tripped and fell over ex-'s walker yesterday. Informant: patient Occured/Mechanism Occurred: Yesterday and Hours (Around 10 AM yesterday morning about 24 hours ago.) Mechanism/Context: Yes same level fall and Yes trip Usually ambulates: Without assistance Pain/Injury Pain Location: head, upper extremity (Right shoulder) and lower extremity (Left knee) Quality of Pain: Dull and Aching Current Severity: Moderate Maximum Severity: Moderate Associated Symptoms Associated Symptoms: Negative for Parasthesias, Weakness, Loss of function, Inability to ambulate, Loss of consciousness or Amnesia Narrative Narrative: 83-year-old male was at his ex 's house yesterday. States he accidentally tripped over her walker. Fell striking his face on the floor injuring his nose and lacerating his right eyebrow. Injuring his right shoulder and left knee. N o LOC. He is not on blood thinners. He has a mild headache. He denies any vomiting. Denies any neck pain. Prior to the fall he said he felt fine. I asked him when his last tetanus shot was he states he does not want a tetanus shot. The fall was about 24 hours ago. Tetanus Immunization: Unknown (Patient does not want a tetanus shot.) Prior similar symptoms: No Recent Illness/Hospitalization: No [facility] Medical History Irritable bowel syndrome with diarrhea Loss of hearing Wears glasses Wears dentures Alcohol use Arthritis Syncope History of IBS Heartburn Former smoker History of stress test Diarrhea Depression Home Medications ?Medication ?Instructions ?Recorded ?Last Taken ?Type NK 02/26/24 Unknown History Allergy/AdvReac Type Severity Reaction Status Date / Time No Known Allergies Allergy Verified 11/26/20 08:00 Surgical History Hx of colonoscopy History of tonsillectomy and adenoidectomy History of appendectomy Social History household members: none housing: apartment Smoking Status: Former smoker alcohol intake: current alcohol intake frequency: holidays/special occasions only substance use type: does not use ROS ROS ED ROS Narrative Denies recent illness. Constitutional Constitutional ED: Denies chills or fever(s) Eyes Eyes: Denies blurry vision ENT ENT ED: Denies ear pain Cardiovascular Cardiovascular: Denies chest pain Respiratory/Chest Respiratory/Chest: Denies cough or dyspnea Gastrointestinal Gastrointestinal: Denies abdominal pain Genitourinary Genitourinary ED: Denies dysuria or hematuria Musculoskeletal Musculoskeletal: Denies arthralgias Integumentary Denies abscess Neurologic Neurologic: Reports headache(s) Psychiatric Psychiatric: Denies anxiety Endocrine Endocrinology: Denies polydipsia Hematologic/Lymphatic Hematologic/Lymphatic: Denies easy bleeding Allergic/Immunologic Allergic/Immunologic ED: Denies mouth swelling EXAM Physical Exam Narrative Exam Narrative: 83-year-old male sitting upright in bed. No one else in the room. Vital signs are stable afebrile. H EENT exam pupils round reactive light. He has a laceration with a scab over his right eyebrow. Currently not bleeding. There is mild bruising. He has bruising and mild tenderness and swelling the midportion the bridge of his nose. There is no bleeding from his nose. Dentition intact. Scalp is nontender. C-spine and neck are nontender. Back and spine are nontender. Without bruising. Lungs clear. Heart regular rhythm rate about 80. No murmur. Chest wall ribs are nontender. Abdomen soft nontender. Pelvic girdle intact. Hips are nontender. Normal range of motion. No shortening or deformity. Both knees have minor abrasions. Left knee has mild anterior tenderness. However he has full flexion extension of both knees. Ligaments are intact with good endpoints. There is no effusions. Ankles and feet are nontender with normal dorsi plantarflexion. Upper extremities he has tenderness to his right shoulder. There is no bruising or swelling. He has limited range of motion the right shoulder he is unable to lift his arm over his head. Left shoulder elbow wrist and hand are nontender with normal bricklayer helper strength. Right elbow wrist and hand are nontender. Neurologically is awake and alert. Answering questions and following commands. Acting appropriately. GCS of 15. Const Vital Signs: 02/26/24 09:48 02/26/24 10:01 02/26/24 12:31 Temperature 98.9 F 98.6 F Temperature Source Oral Pulse Rate 78 62 Respiratory Rate 18 16 Respiratory Effort Normal Blood Pressure 189/89 H 164/85 H Blood Pressure Mean 122 111 Pulse Ox 100 99 Oxygen Delivery Method Room Air Positive well nourished and well developed; Negative for obese, cachectic, contractures or unkempt General Appearance ED: well developed and NAD; Negative for unkempt, cachectic or contractures Nutritional Appearance: Negative for cachectic or obese HEENT Reports normocephalic HEENT Narrative: Nasal bridge tenderness swelling and bruising. Suspect nasal fracture. Bruising about his right eye. trauma, contusion and tenderness; Negative for atraumatic Eyes PERRL and EOMs intact bilaterally General Eye ED: Negative for pale conjunctiva or scleral icterus Neck full ROM, no lymphadenopathy and supple Chest Wall inspection of chest normal and palpation of chest normal Resp normal respiratory effort, no retractions and clear to auscultation bilaterally Auscultation: Negative for rales, rhonchi, wheezes or diminished lung sounds Cardio regular rate, regular rhythm, S1 normal heart sound, S2 normal heart sound and no murmurs Rate: Negative for bradycardia or tachycardic Rhythm: Negative for abnormal rhythm Bruits: Negative for other GI non-tender, non-distended and no masses Palpation: soft; Negative for guarding or rebound tenderness present Back/Spine no CVA tenderness General Back: Negative for CVA tenderness Cervical Spine: Negative for cervical spine tenderness Thoracic Spine / Upper Back: Negative for ROM limited Lumbar Spine / Lower Back: Negative for lumbar spinal tenderness Extremity Extremity Narrative: Tenderness right shoulder decreased range of motion. Unable to lift his right arm over shoulder. Elbow and wrist are nontender normal bricklayer helper strength. No gross bony deformity of the shoulder. Left knee abrasion. Mild anterior tenderness. No effusion. Normal flexion extension. ACL, PCL, MCL and LCL appear to be intact. He can extend his leg down and 80 degrees and lift off the bed. Neuro oriented x3, CN's II-XII intact bilaterally, moves all extremities, no focal motor deficits and no sensory deficits noted Dianne Coma Scale: document GCS findings Spontaneous Obeys Commands Oriented 15 Sensorium / Orientation: alert, oriented to person, oriented to place and oriented to time; Negative for orientation impaired, confused or lethargic Motor Exam: strength 5/5 throughout Psych mental status grossly normal and thought process normal Appearance: Negative for unkempt Attitude: No agitated Mood & Affect: Negative for depressed, anxious or tearful Skin Lesions: no lesions Rashes: no rashes Trauma: abrasion MDM MDM MDM Narrative Medical decision making narrative: 83-year-old male tripped and fell over a walker yesterday. Has a 24-hour old laceration to his right eyebrow that is currently not bleeding. Probably has a nasal fracture. Injured his right shoulder and left needed which will need x- ray. Also will CT his head. The only pain on his face is his nose. I do not think he has any other facial fractures. He does not want a thing for pain. Repeat exam patient is doing well at 1:07 PM. Repeat exam unchanged. He is unable to lift either arm over his head. I think it is unlikely that he had a rotator cuff injury but possible he and I discussed that and if this does not improve he will need to follow-up. He has appointment to see his physician in 1 to 2 weeks if it is not improving he will follow-up with orthopedics. We went over his x-ray and CAT scan results. Will be discharged to home. His back chest and abdomen are benign. He is awake and alert currently. History & Record Review Discussion w/independent historian: Patient Radiography Diagnostic Testing: Clinical Impression(s) from Imaging Studies Brain CT 02/26/24 10:34 IMPRESSION: Chronic involutional changes of the brain. Electronically Signed: Elias Escalera MD at 12:24 EST , Knee X-Ray 02/26/24 10:50 IMPRESSION: Mild degenerative change with small loose body. No fracture. Electronically Signed: Elias Escalera MD at 12:09 EST , Shoulder X-Ray 02/26/24 10:50 IMPRESSION: Degenerative changes. No fracture seen. Electronically Signed: Elias Escalera MD at 12:11 EST , Right shoulder x-ray, 4 views, interpreted by myself and the radiologist shows chronic arthritic changes. No fracture or dislocation. Left knee x-ray, 4 views, interpreted both by myself and radiologist shows arthritic changes. Again no fracture or dislocation. Discharge Plan Triage Chief Complaint: Fall ED Provider: Asher Flores Dx/Rx/DC Orders Clinical Impression: Fall, Closed head injury, Laceration of eyebrow, Contusion of shoulder, Contusion of knee Instructions: ED Contusion, Upper Extremity, ED Head Injury (Adult) Prescriptions: No Action NK Primary Care Provider: Kevin Menjivar Referrals: Kevin Menjivar MD [Primary Care Provider] - Keep Mars appointment Activity Restrictions/Additional Instructions: Ice all sore areas specifically her right shoulder and left knee. You should start get the range of motion back in your shoulders. If that does not happen follow-up with Dr. Ferrara and they can either do an MRI or have you see orthopedic doctors. That is to make sure you did not tear your rotator cuff. Keep the laceration or cut on your eyebrow clean. Clean it daily with soap and water and apply antibiotic ointment. Tylenol and Motrin for pain. Print Language: Urdu Disposition Disposition: Home, Self Care
--- NOTE | 2024-02-26 10:50 | RAD_ITS ---
STUDY: X-RAY - LEFT KNEE REASON FOR EXAM: Male, 83 years old. Fall and pain TECHNIQUE: 4 view(s) of the knee. COMPARISON: None. FINDINGS: There is demineralization of the visualized distal femur. There is demineralization of the tibia and fibula. Normal proximal tibiofibular articulation. There is no demonstrated fracture. There is mild joint space narrowing of the medial femorotibial compartment. There is a small loose body at the anterior lateral femorotibial compartment. Normal patellofemoral articulation. The soft tissue structures are unremarkable. RAD/Knee 4 or More Views IMPRESSION: Mild degenerative change with small loose body. No fracture. Electronically Signed: Elias Escalera MD at 12:09 EST ,
--- NOTE | 2024-02-26 10:50 | RAD_ITS ---
STUDY: X-RAY - RIGHT SHOULDER REASON FOR EXAM: Male, 83 years old. Fall and pain TECHNIQUE: 4 view(s) of the shoulder. COMPARISON: None. FINDINGS: There is mild degenerative arthrosis of the glenohumeral articulation. There is degenerative arthrosis of the acromioclavicular joint without inferior osseous spur formation. Normal acromion. There is demineralization of the humerus and visualized osseous structures. The soft tissue structures are unremarkable. There is no demonstrated fracture. Normal visualized pulmonary apex. RAD/Shoulder min 2 Views IMPRESSION: Degenerative changes. No fracture seen. Electronically Signed: Elias Escalera MD at 12:11 EST ,
[2024-02-26 12:31] VITALS: BP 164/85; PULSE 62; RESP 16; TEMP 37; O2SAT 99
== END 2024-02-26 13:42 | disposition home or self-care (01) ==
PROVIDERS: Emergency Provider Emergency Medicine; PCP Family Medicine; Visit Provider Emergency Medicine
DX: S01.111A Laceration without foreign body of right eyelid and periocular area, initial encounter (principal); S40.011A Contusion of right shoulder, initial encounter; S40.012A Contusion of left shoulder, initial encounter; S80.02XA Contusion of left knee, initial encounter; S80.01XA Contusion of right knee, initial encounter; W18.09XA Striking against other object with subsequent fall, initial encounter; Y92.019 Unspecified place in single-family (private) house as the place of occurrence of the external cause; Z87.891 Personal history of nicotine dependence
CPT/HCPCS: 70450; 73030; 73564; 99282

== ENCOUNTER 2024-04-19 10:39 | Inpatient (IN) | payer MEDICARE, OTHER, SELFPAY ==
[2024-04-19] VITALS (12 sets, daily range): BP systolic 98–193; BP diastolic 66–133; PULSE 65–102; RESP 15–18; TEMP 36.6; O2SAT 93–100; BMI 23.9; BMI 24.0
--- NOTE | 2024-04-19 10:40 | CT_ITS ---
PROCEDURE: STROKE BRAIN/HEAD WITHOUT CONT REASON FOR EXAM: NEURO DEFICIT, ACUTE, STROKE SUSPECTED TECHNIQUE: Multiple axial tomographic images were obtained without intravenous contrast administration. Axial and coronal imaging were obtained as well. CONTRAST: None COMPARISON: Comparison is made with prior study dated February 26, 2024. FINDINGS: Small scalp hematoma overlying the posterior left parietal occipital bone. Mild degree of cerebral atrophy. Mild degree of decreased attenuation in the periventricular distribution bilaterally suggestive of small-vessel disease. Atherosclerotic calcification of the cavernous portions of the internal carotid arteries bilaterally. Opacification of the left maxillary sinus with mucosal thickening of the ethmoid sinuses. CT/STROKE Brain/Head without Cont IMPRESSION: Cerebral atrophy. Small scalp hematoma overlying the left posterior parietal occipital bone. The results were communicated to the referring physician. One or more dose reduction techniques were used (e.g., Automated exposure contr ol, adjustment of the mA and/or kV according to patient size, use of iterative reconstruction technique). Reading Location: [facility]-
--- NOTE | 2024-04-19 10:41 | EKG12_ITS ---
Test Reason : Blood Pressure : */* mmHG Vent. Rate : 69 BPM Atrial Rate : 69 BPM P-R Int : 126 ms QRS Dur : 82 ms QT Int : 426 ms P-R-T Axes : 54 -19 33 degrees QTcB Int : 456 ms Normal sinus rhythm Normal ECG Confirmed by BLESSING CABELLO, TREVOR ([id number]), graphics editor LEANDER BRAY ([id number]) on 04/24/2024 11:11:40 AM Referred By: KAYLAH Confirmed By: TREVOR FUNK MD
--- NOTE | 2024-04-19 10:42 | CT_ITS ---
PROCEDURE: SINUS/FACIAL BONE REASON FOR EXAM: TRAUMA TECHNIQUE: CT of the paranasal sinuses without contrast. COMPARISON: Comparison is made with prior CT scan of the brain done earlier in the day. FINDINGS: Frontal: Frontal sinuses and frontoethmoidal recesses appear clear. Ethmoid: Partial opacification of the ethmoid sinuses. Sphenoid: Sphenoid sinuses and sphenoethmoidal recesses appear clear. Maxillary: There is evidence of a fracture along the lateral wall of the left maxillary sinus extending along the anterior wall laterally. Small amount of air is seen within the soft tissues overlying the maxillary region of the face. Turbinates: Unremarkable. Nasal Septum: Midline. No large nasal septal spur. Mastoids/Middle Ears: Clear at visualized levels. Visualized intracranial structures are unremarkable. CT/Sinus/Facial Bone IMPRESSION: Mildly depressed fracture of the lateral wall of the left maxillary sinus exten ding to the anterior aspect laterally with opacification of the left maxillary sinus. Air is seen within the overlying so ft tissues. There is evidence of soft tissue swelling overlying the left orbital and left m axillary region. One or more dose reduction techniques were used (e.g., Automated exposure contr ol, adjustment of the mA and/or kV according to patient size, use of iterative reconstruction technique). [facility]
--- NOTE | 2024-04-19 10:44 | ED.VIS.STROK ---
HPI History of Present Illness Chief Complaint: Stroke Alert Informant: patient and EMS Narrative Narrative: 83-year-old male arriving to the emergency room with the chief complaint of prehospital stroke alert. Patient states that he went to bed at 2105 hrs. last night and felt fine. Reportedly got up to use the bathroom this morning and fell. EMS notes bruising to the right or left periorbital region and a bloody nose. Patient notes chronic pain in the left shoulder limiting mobility. EMS notes left-sided weakness. Patient states he does not take any blood thinners. He denies headache. He does admit to neck pain. [facility] Medical History Irritable bowel syndrome with diarrhea Loss of hearing Wears glasses Wears dentures Alcohol use Arthritis Syncope History of IBS Heartburn Former smoker History of stress test Diarrhea Depression Home Medications ?Medication ?Instructions ?Recorded ?Last Taken ?Type NK 02/26/24 Unknown History Allergy/AdvReac Type Severity Reaction Status Date / Time No Known Allergies Allergy Verified 04/19/24 11:00 Surgical History Hx of colonoscopy History of tonsillectomy and adenoidectomy History of appendectomy Social History household members: none housing: apartment Smoking Status: Former smoker alcohol intake: current alcohol intake frequency: holidays/special occasions only substance use type: does not use ROS ROS ED Constitutional Constitutional ED: Denies chills, fever(s) or weight loss Eyes Eyes: Denies change in vision or diplopia ENT ENT ED: Reports other Details: Bloody nose left periorbital swelling/contusion ; Denies ear pain, rhinorrhea or sore throat Cardiovascular Cardiovascular: Denies chest pain, orthopnea, palpitations or racing heartbeat Respiratory/Chest Respiratory/Chest: Denies cough, dyspnea or orthopnea Gastrointestinal Gastrointestinal: Denies abdominal pain, diarrhea, nausea or vomiting Genitourinary Genitourinary ED: Denies dysuria, hematuria or urinary frequency Musculoskeletal Musculoskeletal: Reports neck pain and other Details: Chronic left shoulder pain ; Denies arthralgias, back pain or myalgias Integumentary Denies abscess or rash Neurologic Neurologic: Denies headache(s), paresthesias or weakness Psychiatric Psychiatric: Denies anxiety, depression, suicidal ideation or suicidal thoughts Endocrine Endocrinology: Denies polydipsia, polyphagia or polyuria Allergic/Immunologic Allergic/Immunologic ED: Denies mouth swelling, tongue swelling or urticaria EXAM Physical Exam Const Vital Signs: 04/19/24 10:41 04/19/24 10:42 04/19/24 10:44 Temperature 98 F Temperature Source Temporal Pulse Rate 77 96 Respiratory Rate 18 18 Blood Pressure 180/87 H 193/133 H Blood Pressure Mean 118 153 Pulse Ox 100 93 Oxygen Delivery Method Room Air Room Air 04/19/24 10:56 04/19/24 10:57 04/19/24 11:40 Temperature Temperature Source Pulse Rate 73 67 Respiratory Rate 16 15 Blood Pressure 179/96 H 167/90 H Blood Pressure Mean 123 115 Pulse Ox 100 100 98 Oxygen Delivery Method Room Air Room Air 04/19/24 12:00 Temperature Temperature Source Pulse Rate Respiratory Rate Blood Pressure 136/80 H Blood Pressure Mean 98 Pulse Ox Oxygen Delivery Method Positive well nourished and well developed General Appearance ED: well developed and NAD HEENT Reports normocephalic, TM's clear and moist mucous membranes Nose: other Other Details: Tender to palpation nose dried blood and left maxilla scalp hematoma on the occiput Tympanic Membrane ED: Yes TM's clear Eyes PERRL and EOMs intact bilaterally Eyes Narrative: Evidence of subconjunctival hemorrhage. There is no hyphema. Neck no lymphadenopathy, supple and no JVD Resp normal respiratory effort and clear to auscultation bilaterally Cardio regular rate, regular rhythm and no murmurs GI normal to inspection, nondistended, normoactive bowel sounds and non-tender Palpation: soft Back/Spine no CVA tenderness and normal ROM Extremity Extremity Narrative: I am able to range the shoulder but it is painful for him. No obvious dislocation. He has good handgrip. Normal sensation. General Extremety ED: Negative for edema General Extremity: Negative for edema Neuro oriented x3 and CN's II-XII intact bilaterally Sensorium / Orientation: alert Speech: speech normal Sensory Exam: No sensory level loss detected Psych mental status grossly normal Mood & Affect: Negative for depressed or tearful Skin no rashes or lesions noted and no wounds MDM MDM MDM Narrative Medical decision making narrative: Differential diagnosis includes facial fracture skull fracture intracranial hemorrhage stroke cervical spine fracture shoulder fracture I met the patient in the ambulance bay and directed them after my initial evaluation to CT imaging. His NIH is 3 giving points for the weakness of the left arm. Patient tells me that depending on the day he may not be able to move much of the left arm. He is able to squeeze my hand however. I do not appreciate sensory drops. Because that is my only finding of stroke a stroke team was canceled. However this did not get relayed to [facility] and they did being in for their evaluation and I spoke with the neurologist. We do not see an LVO and do not feel that he is a TNK or retrieval candidate. White count returned slightly elevated 14.4 trop[address] of the head demonstrates an occipital scalp hematoma. Facial CT demonstrates a left maxillary fracture. My independent interpretation of the chest x-ray is no acute process please see radiologist read for full details. CTA of the head and neck does not demonstrate an LVO or dissection. No obvious spinal fracture is noted (discussed with radiologist). Blood pressure has come down currently 136/80. I spoke with Dr. Godinez for plastic surgery. Maxillary fracture will be treated nonoperatively with elevation of the head of bed Afrin as needed for bleeding and he will see the patient in the hospital. Plan of care will be admission into hospital. History & Record Review Discussion w/independent historian: EMS personnel and Patient Lab Data Attestation: I reviewed the patient's lab results. Labs: Laboratory Results - last 24 hr 04/19/24 04/19/24 10:50 10:57 WBC 14.4 H RBC 5.34 Hgb 16.0 Hct 45.5 MCV 85.2 MCH 30.0 MCHC 35.2 RDW Std Deviation 37.7 RDW Coeff of Delia 12.3 Plt Count 216 MPV 8.6 Immature Gran % (Auto) 0.500 Neut % (Auto) 83.7 H Lymph % (Auto) 9.8 L Nye % (Auto) 5.7 Eos % (Auto) 0.0 Baso % (Auto) 0.3 Absolute Neuts (auto) 12.1 H Absolute Lymphs (auto) 1.41 Nucleated RBC % 0 PT 13.5 INR 1.0 APTT 23.4 L Sodium 137 Potassium 3.6 Chloride 98 Carbon Dioxide 22.0 Anion Gap 17 H BUN 20 H Creatinine 0.92 Estim Creat Clear Calc 59.89 Est GFR (MDRD) Non-Af 83 BUN/Creatinine Ratio 21.7 H Glucose 152 H Calcium 9.5 Troponin T High Sens 31 H POC Glucose 143 H Radiography Diagnostic Testing: Clinical Impression(s) from Imaging Studies Brain CT 04/19/24 10:40 IMPRESSION: Cerebral atrophy. Small scalp hematoma overlying the left posterior parietal occipital bone. The results were communicated to the referring physician. One or more dose reduction techniques were used (e.g., Automated exposure control, adjustment of the mA and/or kV according to patient size, use of iterative reconstruction technique). Reading Location: [facility]--[facility] Facial/Sinus 04/19/24 10:42 IMPRESSION: Mildly depressed fracture of the lateral wall of the left maxillary sinus extending to the anterior aspect laterally with opacification of the left maxillary sinus. Air is seen within the overlying soft tissues. There is evidence of soft tissue swelling overlying the left orbital and left maxillary region. One or more dose reduction techniques were used (e.g., Automated exposure control, adjustment of the mA and/or kV according to patient size, use of iterative reconstruction technique). Reading Location: [facility]--1 Head/Neck CTA 04/19/24 10:54 IMPRESSION: RIGHT CAROTID: Unremarkable LEFT CAROTID: Minimal plaque at the origin of the left internal carotid artery. VERTEBRALS: Unremarkable INTRACRANIAL: Unremarkable. One or more dose reduction techniques were used (e.g., Automated exposure control, adjustment of the mA and/or kV according to patient size, use of iterative reconstruction technique). Reading Location: [facility]--1 Chest X-Ray 04/19/24 11:20 IMPRESSION: 1. No visible acute cardiopulmonary findings. 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 Consider outpatient CT chest. 2. Additional description as above. Reading Location: [id number] EKG Initial EKG: Attestation: I personally reviewed and interpreted this EKG as follows: Comments: Normal sinus rhythm ventricular rate of 69 bpm Management Discussion w/another healthcare provider: Hospitalist (Dr Alfred) and French Translator (Dr Godinez) Discharge Plan Dx/Rx/DC Orders Clinical Impression: Fall, Closed fracture of left maxillary sinus, Epistaxis, Chronic left shoulder pain, Hypertension, Subconjunctival hemorrhage Disposition Disposition: Acute Care Hospital [facility] NIHSS NIHSS 1a. Level of Consciousness: Alert; keenly responsive 1b. LOC Questions: Answers BOTH questions correctly. 1c. LOC Commands: Performs both tasks correctly. 2. Best Gaze: Normal 3. Visual: No visual loss 4. Facial Palsy: Normal symmetrical movements 5a. Left Arm: No effort against gravity; arm falls 5b. Right Arm: No drift; arm holds 90 (or 45) degrees for full 10 seconds 6a. Left Leg: No drift; leg holds 30-degree position for full 5 seconds 6b. Right Leg: No drift; leg holds 30-degree position for full 5 seconds 7. Limb Ataxia: Absent 8. Sensory: Normal; no sensory loss 9. Best Language: No aphasia; normal 10. Dysarthria: Normal 11. Extinction and Inattention: No abnormality Total: 3
--- NOTE | 2024-04-19 10:54 | CT_ITS ---
PROCEDURE: STROKE CTA HEAD AND NECK W/CON REASON FOR EXAM: STROKE TECHNIQUE: CTA imaging of the head and neck from the aortic arch to the skull vertex with intravenous contrast. 3D reconstructions. CONTRAST: 100 cc of Isovue 370. COMPARISON: Comparison is made with prior CT scan of the head done earlier in the day. FINDINGS: 8.6 mm hypodense nodule in the mid inferior aspect of the enlarged right lobe of the thyroid. The left lobe is not seen most likely has been surgically removed. Substernal extension of the right lobe of the thyroid. Aortic Arch: Normal size and branching pattern. Mild atherosclerotic plaque. Brachiocephalic and Subclavians: Unremarkable RIGHT Carotid: Right CCA: Unremarkable. Right ICA: Unremarkable. Right ECA: Unremarkable. LEFT Carotid: Left CCA: Unremarkable. Left ICA: Minimal plaque at the origin of the left internal carotid artery. Maximum stenosis (NASCET): <50 % Left ECA: Unremarkable. Vertebrals: Codominant. Arise from the subclavians. Both vertebrals form the basilar. RIGHT Vertebral: Unremarkable. LEFT Vertebral: Unremarkable. No intracranial aneurysms or large vascular malformations are identified. Anterior cerebral arteries: Unremarkable. Middle cerebral arteries: Unremarkable. Basilar artery: Unremarkable. Posterior cerebral arteries: Unremarkable. Other major branches of the posterior circulation: Unremarkable. Major venous structures: Unremarkable. Other findings: No lymphadenopathy. Lung apices are clear. Known left maxillary fracture with the fluid in the left maxillary sinus and overlying subcutaneous emphysema. Multilevel disc space narrowing of the cervical spine with facet joint osteoarthritis and hypertrophy. CT/STROKE CTA Head AND Neck W/Con IMPRESSION: RIGHT CAROTID: Unremarkable LEFT CAROTID: Minimal plaque at the origin of the left internal carotid artery. VERTEBRALS: Unremarkable INTRACRANIAL: Unremarkable. One or more dose reduction techniques were used (e.g., Automated exposure contr ol, adjustment of the mA and/or kV according to patient size, use of iterative reconstruction technique). Reading Location: [place] [id number]
[2024-04-19 11:03] LABS: Absolute Lymphocyte Count 1.41 X10^3/uL (0.83-4.51); Absolute Neutrophil Count 12.1 X10^3/uL (2.0-7.7); Basophil# 0.04 X10^3/uL; Basophil% 0.3 % (0-1); Hematocrit 45.5 % (40-54); Lymphocyte # 1.41 X10^3/ul (0.83-4.51); Lymphocyte % 9.8 % (19-41); Mean Corp Hgb Conc 35.2 g/dL (32-36); Mean Corpuscular Volume 85.2 fL (80-94); Mean Platelet Vol. 8.6 fl (6.2-12.0); Monocyte# 0.83 X10^3/uL; Monocyte% 5.7 % (0-10); NRBC Flagged by Analyzer 0 % (0-5); Neutrophil # 12.09 X10^3/uL (2.7-7.7); Neutrophil % 83.7 % (47-70); Platelet Count 216 K/mm3 (150-450); RBC Distribution Width CV 12.3 % (11.6-14.6); RBC Distribution Width SD 37.7 fl (35.1-43.9); Red Blood Count 5.34 M/mm3 (4.6-6.2); White Blood Count 14.4 K/mm3 (4.4-11.0)
[2024-04-19] MEDS: Ondansetron 4 MG/2 ML Vial IV ×2 (11:08→17:21)
--- NOTE | 2024-04-19 11:09 | ED.RN ---
cancel stroke alert per Dr. Gallagher. cancel [facility].
[2024-04-19 11:12] LABS: Prothrombin Time (Protime)PT. 13.5 SECONDS (11.7-14.9)
[2024-04-19 11:13] LABS: Partial Thromboplast Time 23.4 Seconds (24.1-36.2)
[2024-04-19 11:17] LABS: Bedside Glucose 143 mg/dL (74-106)
--- NOTE | 2024-04-19 11:20 | RAD_ITS ---
PROCEDURE: CHEST 1 VIEW (RADCXPA), 04/19/2024 REASON FOR EXAM: NEURO DEFICIT, ACUTE, STROKE SUSPECTED TECHNIQUE: A single portable AP view of the chest was obtained. COMPARISON: 09/18/2020. FINDINGS: Heart: Unremarkable. Mediastinum: Atherosclerosis. Lungs/pleura: Grossly similar mild reticulonodular abnormality in the lung bases. No sizeable pleural effusion or visible pneumothorax. Bones: Demineralization. Lines and support devices: None. RAD/Chest 1 View IMPRESSION: 1. No visible acute cardiopulmonary findings. Grossly similar mild chronic bib asilar reticulonodular/interstitial abnormality. Consider outpatient CT chest. 2. Additional description as above. Reading Location: [id number]
[2024-04-19 11:32] LABS: Anion Gap 17 (5-15); BUN 20 mg/dL (4-19); BUN/Creat Ratio 21.7 RATIO (10-20); Calcium,Total 9.5 mg/dL (7.6-11.0); Chloride 98 mmol/L (98-108); Creatinine, Serum 0.92 mg/dL (0.70-1.20); EST Glomerular Filtration Rate 83 (>60); Estimated Creatinine Clearance 59.89 ml/min (50-250); Glucose 152 mg/dL (70-99); Potassium 3.6 mmol/L (3.3-5.1); Sodium Level 137 mmol/L (133-145); Troponin T High Sensitivity 31 ng/L (<=22)
--- NOTE | 2024-04-19 11:40 | EX.PCM.CON.S ---
Assessment & Plan Assessment/Plan (1) Maxillary fracture, left side, initial encounter for closed fracture: PLAN: Anticipate non-operative management No nose blowing Afrin for nose bleeds Head of bed elevated to 45 or greater as tolerated for 1 week for swelling [facility] will arrange 1 week f/u HPI Consult Data Date of Consult: 04/19/24 HPI Narrative HPI Narrative: YAS ROSA is a 83 M who presents with a left face maxillary fracture after a fall from standing earlier this morning (reports that he's been less steady on his feet lately). He is being admitted to medicine for a fall work up. He has a small scalp hematoma in the vertex of his scalp as well. He is not on blood thinner. Reports normal occlusion and vision. No double vision. No loose or missing teeth. Left cheek is numb since the injury. Able to breathe through nose. CT neck demonstrated no cervical spine fractures and he is non-tender on C spine (C spine cleared by ED). CTA with minimal plaque on left carotid, but otherwise unremarkable. He reports a history of neck pain but no new neck pain. Not a smoker Broke his nose a few weeks ago with another fall. [facility] Medical History Anxiety Irritable bowel syndrome with diarrhea Loss of hearing Wears glasses Wears dentures Alcohol use Arthritis Syncope History of IBS Heartburn Former smoker History of stress test Diarrhea Depression Home Medications ?Medication ?Instructions ?Recorded ?Last Taken ?Type NK 02/26/24 Unknown History Allergy/AdvReac Type Severity Reaction Status Date / Time No Known Allergies Allergy Verified 04/19/24 11:00 Surgical History Hx of colonoscopy History of tonsillectomy and adenoidectomy History of appendectomy Social History household members: none housing: apartment Smoking Status: Former smoker alcohol intake: current alcohol intake frequency: holidays/special occasions only substance use type: does not use Physical Exam Narrative Cranial nerve exam: Cranial nerve II: visual acuity intact Cranial nerves III, IV and : extraocular movements intact, no diplopia with extraocular movements. Cranial nerve V: sensation to light touch intact in all 3 distributions of cranial nerve five Except for left cheek numbness Cranial nerve VII: Patient is able to raise eyebrows, closes eyes, smile, purse lips, and move his lower lip to show his lower teeth symmetrically on both sides. Able to stick out their tongue Edentulous with upper maxillary partial, No loose or missing teeth, no bleeds in the mouth Left subconjunctival hemorrhage Periorbital bruising Normal occlusion, slight pain with opening mouth widely on the left, but able to open completely No septal hematoma No TTP of the forehead, orbits, nasal bridge, alveolus or mandible. Const alert and oriented x3 Lab / Micro Data 04/19/24 10:50 04/19/24 10:50 Labs: Laboratory Results - last 24 hr 04/19/24 10:50: WBC 14.4 H, RBC 5.34, Hgb 16.0, Hct 45.5, MCV 85.2, MCH 30.0, MCHC 35.2, RDW Std Deviation 37.7, RDW Coeff of Delia 12.3, Plt Count 216, MPV 8.6, Immature Gran % (Auto) 0.500, Neut % (Auto) 83.7 H, Lymph % (Auto) 9.8 L, Toombs % (Auto) 5.7, Eos % (Auto) 0.0, Baso % (Auto) 0.3, Absolute Neuts (auto) 12.1 H, Absolute Lymphs (auto) 1.41, Nucleated RBC % 0, PT 13.5, INR 1.0, APTT 23.4 L, Sodium 137, Potassium 3.6, Chloride 98, Carbon Dioxide 22.0, Anion Gap 17 H, BUN 20 H, Creatinine 0.92, Estim Creat Clear Calc 59.89, Est GFR (MDRD) Non-Af 83, BUN/Creatinine Ratio 21.7 H, Glucose 152 H, Calcium 9.5, Troponin T High Sens 31 H 04/19/24 10:57: POC Glucose 143 H Imaging Radiology Impression Brain CT 04/19/24 10:40 IMPRESSION: Cerebral atrophy. Small scalp hematoma overlying the left posterior parietal occipital bone. The results were communicated to the referring physician. One or more dose reduction techniques were used (e.g., Automated exposure control, adjustment of the mA and/or kV according to patient size, use of iterative reconstruction technique). Reading Location: [facility] Facial/Sinus 04/19/24 10:42 IMPRESSION: Mildly depressed fracture of the lateral wall of the left maxillary sinus extending to the anterior aspect laterally with opacification of the left maxillary sinus. Air is seen within the overlying soft tissues. There is evidence of soft tissue swelling overlying the left orbital and left maxillary region. One or more dose reduction techniques were used (e.g., Automated exposure control, adjustment of the mA and/or kV according to patient size, use of iterative reconstruction technique). Reading Location: [facility] Head/Neck CTA 04/19/24 10:54 IMPRESSION: RIGHT CAROTID: Unremarkable LEFT CAROTID: Minimal plaque at the origin of the left internal carotid artery. VERTEBRALS: Unremarkable INTRACRANIAL: Unremarkable. One or more dose reduction techniques were used (e.g., Automated exposure control, adjustment of the mA and/or kV according to patient size, use of iterative reconstruction technique). Reading Location: [facility] Chest X-Ray 04/19/24 11:20 IMPRESSION: 1. No visible acute cardiopulmonary findings. 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 Consider outpatient CT chest. 2. Additional description as above. Reading Location: [id number] Charges/Coding Multi Select Codes Visit Charges Office Visit/Consults: 62838 OV L5 New 60min
--- NOTE | 2024-04-19 12:49 | ECHOD_ITS ---
Reason For Study Reason For Study: SYNCOPE Procedure This was a 2D Doppler, Color Flow transthoracic echocardiogram. The study was technically difficult. PT was unable to lie still in left lateral decubitus position due to dizziness. Exam performed portable in patient room. Left Ventricle Normal LV size. The estimated ejection fraction is 70 %. No evidence for diastolic dysfunction. No regional wall motion abnormalities noted. Right Ventricle Normal RV size. Normal systolic function. Atria The left and right atria are normal. No doppler evidence for ASD. Mitral Valve There is no mitral valve stenosis. No mitral valve insufficiency. Tricuspid Valve There is no tricuspid stenosis. Mild tricuspid valve insufficiency. Pulmonary artery systolic pressure is 20 mmHg. Aortic Valve Trisinus/trileaflet aortic valve. Aortic sclerosis, no stenosis. There is no aortic stenosis. No aortic valve insufficiency. Pulmonic Valve There is no pulmonic valvular stenosis. No pulmonic valve insufficiency identified. Great Vessels Normal sized aortic root. Pericardium/Pleural No pericardial effusion. MMode/2D Measurements & Calculations LVIDd: 4.7 cm IVSd: 0.89 cm Ao root diam: 3.1 cm LVIDs: 2.6 cm LVPWd: 0.98 cm FS: 43.4 % LAV(MOD-bp): 47.3 ml LVAd ap4: 25.2 cm2 LVAd ap2: 21.5 cm2 LAV(MOD-bp) Indexed: 25.6 ml/m2 LVLd ap4: 8.2 cm LVLd ap2: 7.6 cm LAV(MOD-sp2): 46.4 ml EDV(MOD-sp4): 65.3 ml EDV(MOD-sp2): 52.6 ml LAV(MOD-sp4): 45.3 ml EDV(sp4-el): 66.0 ml EDV(sp2-el): 51.7 ml LVAs ap4: 11.5 cm2 LVAs ap2: 12.6 cm2 LVLs ap4: 7.0 cm LVLs ap2: 7.0 cm ESV(MOD-sp4): 17.3 ml ESV(MOD-sp2): 20.2 ml ESV(sp4-el): 16.1 ml ESV(sp2-el): 19.3 ml EF(MOD-sp4): 73.5 % EF(MOD-sp2): 61.5 % EF(sp4-el): 75.6 % SV(MOD-sp4): 48.0 ml SV(MOD-sp2): 32.3 ml SV(sp4-el): 49.9 ml SI(MOD-sp4): 26.0 ml/m2 SI(MOD-sp2): 17.5 ml/m2 LA A4 area: 17.4 cm2 LA dimension(2D): 4.0 cm TAPSE: 1.8 cm Time Measurements MV dec time: 0.23 sec Doppler Measurements & Calculations MV E max willian: 46.1 cm/sec Lat Peak E' Willian: 8.5 cm/sec Med Peak E' Willian: 8.8 cm/sec MV A max willian: 60.3 cm/sec E/E' lat: 5.4 E/E' med: 5.2 MV E/A: 0.76 MV V2 max: 68.5 cm/sec MV P1/2t max willian: 57.2 cm/sec Ao V2 max: 135.2 cm/sec MV max P.9 mmHg MV P1/2t: 73.0 msec Ao max P.3 mmHg MV V2 mean: 33.5 cm/sec Ao V2 mean: 86.9 cm/sec MV mean P.54 mmHg MV dec slope: 229.5 cm/sec2 Ao mean P.4 mmHg MV V2 VTI: 13.6 cm MVA(P1/2t): 3.0 cm2 Ao V2 VTI: 22.6 cm AV (velocity ratio): 0.83 LV V1 max: 85.5 cm/sec PA V2 max: 107.9 cm/sec TR max willian: 257.8 cm/sec LV V1 max P.9 mmHg TR max P.6 mmHg LV V1 mean P.3 mmHg LV V1 mean: 52.6 cm/sec LV V1 VTI: 18.8 cm ECHO/Echo Complete Interpretation Summary The estimated ejection fraction is 70 %. No evidence for diastolic dysfunction. Ordering Physician: Keanu Alfred Referring Physician: Kevin Menjivar Performed By: Melida Child, ALTAGRACIA, RVT
--- NOTE | 2024-04-19 13:23 | HP.PCM.HOS_ITS ---
HPI - General General Date of Admission: 04/19/24 Date of Service: 04/19/24 Chief Complaint: fall. HPI Narrative YAS ROSA, is a 83 M who presents with a fall. Patient was in bathroom this morning washing his hands where he felt dizzy. He sat at the edge of the tub and then passed out. He hit his head and presented to the emergency room. Stroke team was called due to left upper extremity weakness. Patient states that he has had left upper extremity weakness that is been ongoing for roughly 2 years. He states that he has been feeling dizzy over the past couple months particular when he does anything. Usually thing that makes it better is when he stays still but worse when he actually moves. So patient underwent a CTA of the head and neck that showed minimal atherosclerotic disease. Head CT showed cerebellar atrophy, small scalp hematoma overlying the left posterior parietal occipital bone. Facial sinus CT showed mildly depressed fracture of the lateral wall of the left maxillary sinus extending to the anterior aspect laterally with opacification of the left maxillary sinus. Air seen within the overlying soft tissues. Patient was seen by [facility] teleneurology who did not feel patient actually had a stroke given his chronic weakness of his left upper extremity. Patient has been told by his primary care doctor that it is likely due to something in his neck contribute to that. Patient states he is been having his dizziness for about 2 months but has not notified any of his providers. Hospital service was contacted for admission. Prior to contacting the hospital service plastics surgery was consulted and is put in the note but the the patient states that he has not seen the surgeon yet. [facility] Medical History (Updated 04/19/24 @ 13:[address] Keanu Alfred DO) Irritable bowel syndrome with diarrhea Loss of hearing Wears glasses Wears dentures Alcohol use Arthritis Syncope History of IBS Heartburn Former smoker History of stress test Diarrhea Depression Home Medications ?Medication ?Instructions ?Recorded ?Last Taken ?Type NK 02/26/24 Unknown History Allergy/AdvReac Type Severity Reaction Status Date / Time No Known Allergies Allergy Verified 04/19/24 11:00 Surgical History Hx of colonoscopy History of tonsillectomy and adenoidectomy History of appendectomy Social History household members: none housing: apartment Smoking Status: Former smoker alcohol intake: current alcohol intake frequency: holidays/special occasions only substance use type: does not use ROS ROS Narrative Denies any diplopia, no blurred vision. All review of systems were negative except as mentioned above in the history of present illness and the other review of systems. Vital Signs Vital Signs Vital Signs: 04/19/24 10:41 04/19/24 10:42 04/19/24 10:44 Temperature 36.6 C Temperature Source Temporal Pulse Rate 77 96 Respiratory Rate 18 18 Blood Pressure 180/87 H 193/133 H Blood Pressure Mean 118 153 Pulse Ox 100 93 Oxygen Delivery Method Room Air Room Air 04/19/24 10:56 04/19/24 10:57 04/19/24 11:40 Temperature Temperature Source Pulse Rate 73 67 Respiratory Rate 16 15 Blood Pressure 179/96 H 167/90 H Blood Pressure Mean 123 115 Pulse Ox 100 100 98 Oxygen Delivery Method Room Air Room Air 04/19/24 12:00 04/19/24 13:05 Temperature 36.6 C Temperature Source Pulse Rate 65 Respiratory Rate 16 Blood Pressure 136/80 H 133/75 H Blood Pressure Mean 98 94 Pulse Ox 99 Oxygen Delivery Method Weight Weight: 71.5 kg Body Mass Index (BMI) 23.9 Physical Exam Const alert and no apparent distress HEENT HEENT Narrative: Ecchymosis and swelling of the left lower eyelid extending over the cheek. Patient has injection of the cornea of the left eye. No evidence of any hyphema. Eyes PERRL and EOMs intact bilaterally Eyes Narrative: Visual andrews intact peripherally. Neck no lymphadenopathy and no JVD Resp normal respiratory effort, no retractions, no use of accessory muscles and clear to auscultation bilaterally GI normal to inspection, nondistended, normoactive bowel sounds, soft to palpation, non-tender, non-distended and hepatosplenomegaly Extremity normal to inspection and full ROM Neuro oriented x3 and moves all extremities Neuro Narrative: Mo strength 4:55 in the AM right upper extremity but patient has difficulty flexing his right shoulder but strength in his right hand is intact. Strength in the left hand is very diminished and patient is unable to fully extend any of his fingers most prominently his third and fourth fingers. Muscle strength is 5-5 in lower extremities bilaterally. Sensorium / Orientation: awake and alert Psych Psych Narrative: Flat affect. Results Lab / Micro Data Attestation: I reviewed the patient's lab results. 04/19/24 10:50 04/19/24 10:50 Labs: Laboratory Results - last 24 hr 04/19/24 10:50: WBC 14.4 H, RBC 5.34, Hgb 16.0, Hct 45.5, MCV 85.2, MCH 30.0, MCHC 35.2, RDW Std Deviation 37.7, RDW Coeff of Delia 12.3, Plt Count 216, MPV 8.6, Immature Gran % (Auto) 0.500, Neut % (Auto) 83.7 H, Lymph % (Auto) 9.8 L, [place] % (Auto) 5.7, Eos % (Auto) 0.0, Baso % (Auto) 0.3, Absolute Neuts (auto) 12.1 H, Absolute Lymphs (auto) 1.41, Nucleated RBC % 0, PT 13.5, INR 1.0, APTT 23.4 L, Sodium 137, Potassium 3.6, Chloride 98, Carbon Dioxide 22.0, Anion Gap 17 H, BUN 20 H, Creatinine 0.92, Estim Creat Clear Calc 59.89, Est GFR (MDRD) Non-Af 83, BUN/Creatinine Ratio 21.7 H, Glucose 152 H, Calcium 9.5, Troponin T High Sens 31 H 04/19/24 10:57: POC Glucose 143 H Imaging Radiology Impression Brain CT 04/19/24 10:40 IMPRESSION: Cerebral atrophy. Small scalp hematoma overlying the left posterior parietal occipital bone. The results were communicated to the referring physician. One or more dose reduction techniques were used (e.g., Automated exposure control, adjustment of the mA and/or kV according to patient size, use of iterative reconstruction technique). Reading Location: [facility] Facial/Sinus 04/19/24 10:42 IMPRESSION: Mildly depressed fracture of the lateral wall of the left maxillary sinus extending to the anterior aspect laterally with opacification of the left maxillary sinus. Air is seen within the overlying soft tissues. There is evidence of soft tissue swelling overlying the left orbital and left maxillary region. One or more dose reduction techniques were used (e.g., Automated exposure control, adjustment of the mA and/or kV according to patient size, use of iterative reconstruction technique). Reading Location: [facility] Head/Neck CTA 04/19/24 10:54 IMPRESSION: RIGHT CAROTID: Unremarkable LEFT CAROTID: Minimal plaque at the origin of the left internal carotid artery. VERTEBRALS: Unremarkable INTRACRANIAL: Unremarkable. One or more dose reduction techniques were used (e.g., Automated exposure control, adjustment of the mA and/or kV according to patient size, use of iterative reconstruction technique). Reading Location: [facility]1 Chest X-Ray 04/19/24 11:20 IMPRESSION: 1. No visible acute cardiopulmonary findings. 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 Consider outpatient CT chest. 2. Additional description as above. Reading Location: [id number] Assessment & Plan Assessment/Plan (1) Syncope: PLAN: The may have been due to the vertigo related with the dizziness. Patient at actually more of a near syncopal episode where he just felt so dizzy hit his head. May be some postconcussion syndrome. Will check an echocardiogram given this dizziness he has been having over the past couple months. Additionally check orthostatic vital signs and monitor on telemetry. He may have BPPV. Add PRN meclizine. (2) Maxillary fracture, left side, initial encounter for closed fracture: PLAN: Secondary to fall. Given that this is displaced and not in the normal scope of practice for hospitalist I have informed ED RN and house painting instructor that patient will need to be seen by surgery in the ED and deemed not a candidate for a trauma center before patient can be accepted here. (3) Subconjunctival hemorrhage: PLAN: 2/2 to fall. Visual andrews intact, PERRL, EOMI. No hyphema. Supportive mgmt at this time. No optho needed at this time. (4) Left arm weakness: PLAN: ongoing for years (unable to flex right shoulder, but this seems to be due to rotator cuff injury/tear). Concern for radicular. Check MRI brain and cervical spine. Pt and spouse aware that there is no spine surgery available until Wednesday. Charges/Coding Visit Charges Inpatient E&M: 86979 Init Hosp L3
--- NOTE | 2024-04-19 15:02 | MRI_ITS ---
PROCEDURE: MRI brain without IV contrast REASON FOR EXAM: CHRONIC LEFT ARM WEAKNESS. TECHNIQUE: Multisequence multiplanar MR images of the brain were obtained without the administration of intravenous contrast. COMPARISON: Same-day CTs FINDINGS: No evidence of acute intracranial hemorrhage, midline shift or mass effect. No diffusion restriction to suggest acute/subacute ischemia. No evidence of intraparenchymal microhemorrhage or calcification. Mild generalized cerebral atrophy. Scattered periventricular, subcortical and deep white matter hyperintense FLAIR signal foci most consistent with chronic small-vessel ischemic disease. No cortical edema. Globes are grossly intact. Blood products throughout the left maxillary sinus with associated facial bone fractures. Left facial soft tissue swelling. Left posterior scalp soft tissue swelling. MRI/Brain without Contrast IMPRESSION: 1. No acute intracranial abnormality, specifically no evidence of acute ischemi a. 2. Mild atrophy and chronic small-vessel ischemic changes. 3. Acute left facial bone fractures better seen and described on recent facial bone CT. Reading Location: [facility]
--- NOTE | 2024-04-19 15:02 | MRI_ITS ---
PROCEDURE: MRI cervical spine without IV contrast REASON FOR EXAM: CHRONIC LEFT ARM WEAKNESS. TECHNIQUE: Multisequence multiplanar MR images of the cervical spine were obtained without the administration of intravenous contrast. COMPARISON: Same-day CTs FINDINGS: Vertebral body heights are within normal limits. Probable hemangioma in the C3 vertebral body. No evidence of acute fracture or traumatic subluxation. Diffuse increased cord signal at the level of C4 and C5 likely related to myelomalacia from severe spinal stenosis. Remaining cord signal is within normal limits. No paraspinal mass. C2-3: Minimal posterior disc bulge. Bilateral facet arthrosis. No significant spinal stenosis. Mild bilateral foraminal narrowing. C3-4: Posterior disc osteophyte complex eccentric to the right. Bilateral uncovertebral arthrosis, greater on the right. Severe spinal stenosis. Severe right and moderate left foraminal narrowing. C4-5: Large posterior disc osteophyte complex eccentric to the left with a superimposed left central extrusion demonstrating 6 mm of cranial migration. Bilateral uncovertebral arthrosis, greater on the left. Severe spinal stenosis with marked mass effect on the left cord. Spinal canal measures up to 3 mm in AP dimension. Severe bilateral foraminal narrowing. C5-6: Posterior disc osteophyte complex. Bilateral uncovertebral arthrosis. Moderate spinal stenosis. Severe right and moderate/severe left foraminal narrowing. C6-7: Posterior disc osteophyte complex eccentric to the right. Bilateral uncovertebral arthrosis. No significant spinal stenosis. Severe right and moderate left foraminal narrowing. C7-T1: Small posterior disc bulge. Moderate bilateral facet arthrosis. No significant spinal stenosis. Mild/moderate bilateral foraminal narrowing. MRI/Spine Cervical (Routine) IMPRESSION: 1. 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 2. Acquired mild to severe multilevel foraminal narrowing. See level by level comments above. 3. 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 Reading Location: [facility]
[2024-04-19 16:33] LABS: Troponin T High Sensitivity 31 ng/L (<=22)
[2024-04-19] MEDS: LORazepam 1 MG Tablet PO (17:21)
[2024-04-19] MEDS: Meclizine 12.5 MG Tablet PO (17:21)
[2024-04-19 18:10] LABS: Troponin T High Sens 2 HR 30 ng/L (<=22)
[2024-04-19 21:59] LABS: Troponin T High Sens 4 HR 35 ng/L (<=22)
--- NOTE | 2024-04-19 23:24 | NURSING ---
attempted to get pt.'s orthostatic BPs; inable to obtain standing ortho d/t pt. becoming extremely dizzy and weak
[2024-04-20] VITALS (8 sets, daily range): BP systolic 70–120; BP diastolic 48–66; PULSE 65–86; RESP 16–18; TEMP 36.3–37.2; O2SAT 95–99
[2024-04-20 05:57] LABS: Absolute Lymphocyte Count 2.09 X10^3/uL (0.83-4.51); Absolute Neutrophil Count 8.7 X10^3/uL (2.0-7.7); Basophil# 0.01 X10^3/uL; Basophil% 0.1 % (0-1); Eosinophil# 0.01 X10^3/uL; Eosinophils% 0.1 % (0-5); Hematocrit 38.5 % (40-54); Hemoglobin 13.2 g/dL (13.0-16.5); Lymphocyte # 2.09 X10^3/ul (0.83-4.51); Lymphocyte % 17.6 % (19-41); Mean Corp Hgb Conc 34.3 g/dL (32-36); Mean Corpuscular Hgb 29.5 pg (27.0-32.0); Mean Corpuscular Volume 86.1 fL (80-94); Mean Platelet Vol. 8.9 fl (6.2-12.0); Monocyte% 8.4 % (0-10); NRBC Flagged by Analyzer 0 % (0-5); Neutrophil # 8.72 X10^3/uL (2.7-7.7); Neutrophil % 73.5 % (47-70); Platelet Count 216 K/mm3 (150-450); RBC Distribution Width CV 12.7 % (11.6-14.6); RBC Distribution Width SD 39.5 fl (35.1-43.9); Red Blood Count 4.47 M/mm3 (4.6-6.2); White Blood Count 11.9 K/mm3 (4.4-11.0)
--- NOTE | 2024-04-20 07:52 | PCM.PN.HOSP ---
Reason for Visit Reason for Visit: Diagnoses Conjunctival hemorrhage, unspecified eye (04/19/24) Other symptoms and signs involving the musculoskeletal system (04/19/24) Syncope and collapse (04/19/24) Maxillary fracture, left side, initial encounter for closed fracture (04/19/24) Subjective Subjective Denies visual changes. Dizzy with change in position. Objective Data Objective Data Vital Signs: Vital Signs Temp Pulse Resp BP Pulse Ox O2 Del Method 36.7 C 67 16 119/66 98 Room Air 04/20/24 03:15 04/20/24 03:15 04/20/24 03:15 04/20/24 03:15 04/20/24 03:15 04/20/24 03:15 Oxygen Delivery Method Room Air Weight: 71.6 kg Body Mass Index (BMI) 24.0 Intake & Output: Intake and Output for Last 24 Hours 04/18/24 04/19/24 04/20/24 23:59 23:59 23:59 Intake Total 450 / 450 Output Total 500 / 500 Balance -50 / -50 Lab / Micro Data 04/20/24 05:25 04/19/24 10:50 Labs: Laboratory Results - last 24 hr 04/19/24 10:50: WBC 14.4 H, RBC 5.34, Hgb 16.0, Hct 45.5, MCV 85.2, MCH 30.0, MCHC 35.2, RDW Std Deviation 37.7, RDW Coeff of Delia 12.3, Plt Count 216, MPV 8.6, Immature Gran % (Auto) 0.500, Neut % (Auto) 83.7 H, Lymph % (Auto) 9.8 L, [place] % (Auto) 5.7, Eos % (Auto) 0.0, Baso % (Auto) 0.3, Absolute Neuts (auto) 12.1 H, Absolute Lymphs (auto) 1.41, Nucleated RBC % 0, PT 13.5, INR 1.0, APTT 23.4 L, Sodium 137, Potassium 3.6, Chloride 98, Carbon Dioxide 22.0, Anion Gap 17 H, BUN 20 H, Creatinine 0.92, Estim Creat Clear Calc 59.89, Est GFR (MDRD) Non-Af 83, BUN/Creatinine Ratio 21.7 H, Glucose 152 H, Calcium 9.5, Troponin T High Sens 31 H 04/19/24 10:57: POC Glucose 143 H 04/19/24 15:48: Troponin T High Sens 31 H 04/19/24 17:25: Troponin T Hi Sens 2 Hr 30 H 04/19/24 21:15: Troponin T Hi Sens 4Hr 35 H 04/20/24 05:25: WBC 11.9 H, RBC 4.47 L, Hgb 13.2, Hct 38.5 L, MCV 86.1, MCH 29.5, MCHC 34.3, RDW Std Deviation 39.5, RDW Coeff of Delia 12.7, Plt Count 216, MPV 8.9, Immature Gran % (Auto) 0.300, Neut % (Auto) 73.5 H, Lymph % (Auto) 17.6 L, [place] % (Auto) 8.4, Eos % (Auto) 0.1, Baso % (Auto) 0.1, Absolute Neuts (auto) 8.7 H, Absolute Lymphs (auto) 2.09, Nucleated RBC % 0 Radiography Diagnostic Testing: Radiology Impression Brain CT 04/19/24 10:40 IMPRESSION: Cerebral atrophy. Small scalp hematoma overlying the left posterior parietal occipital bone. The results were communicated to the referring physician. One or more dose reduction techniques were used (e.g., Automated exposure control, adjustment of the mA and/or kV according to patient size, use of iterative reconstruction technique). Reading Location: [facility] Facial/Sinus 04/19/24 10:42 IMPRESSION: Mildly depressed fracture of the lateral wall of the left maxillary sinus extending to the anterior aspect laterally with opacification of the left maxillary sinus. Air is seen within the overlying soft tissues. There is evidence of soft tissue swelling overlying the left orbital and left maxillary region. One or more dose reduction techniques were used (e.g., Automated exposure control, adjustment of the mA and/or kV according to patient size, use of iterative reconstruction technique). Reading Location: [facility]-1 Head/Neck CTA 04/19/24 10:54 IMPRESSION: RIGHT CAROTID: Unremarkable LEFT CAROTID: Minimal plaque at the origin of the left internal carotid artery. VERTEBRALS: Unremarkable INTRACRANIAL: Unremarkable. One or more dose reduction techniques were used (e.g., Automated exposure control, adjustment of the mA and/or kV according to patient size, use of iterative reconstruction technique). Reading Location: [facility]-1 Chest X-Ray 04/19/24 11:20 IMPRESSION: 1. No visible acute cardiopulmonary findings. 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 Consider outpatient CT chest. 2. Additional description as above. Reading Location: [id number] Brain MRI 04/19/24 15:02 IMPRESSION: 1. No acute intracranial abnormality, specifically no evidence of acute ischemia. 2. Mild atrophy and chronic small-vessel ischemic changes. 3. Acute left facial bone fractures better seen and described on recent facial bone CT. [facility] Cervical Spine MRI 04/19/24 15:02 IMPRESSION: 1. 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 2. Acquired mild to severe multilevel foraminal narrowing. See level by level comments above. 3. 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 Reading [facility] Physical Exam Const alert and no apparent distress HEENT HEENT Narrative: left lower eyelid ecchymosis. subconjunctival hemorrhage. no hyphema. Eyes EOMs intact bilaterally Resp normal respiratory effort GI normal to inspection, nondistended, normoactive bowel sounds, soft to palpation, non-tender and non-distended Extremity normal to inspection and full ROM Assessment & Plan Assessment/Plan (1) Syncope: PLAN: The may have been due to the vertigo related with the dizziness. Patient at actually more of a near syncopal episode where he just felt so dizzy hit his head. May be some postconcussion syndrome. Will check an echocardiogram given this dizziness he has been having over the past couple months. Additionally check orthostatic vital signs and monitor on telemetry. He may have BPPV. Add PRN meclizine. (2) Maxillary fracture, left side, initial encounter for closed fracture: PLAN: Secondary to fall. Coservative mgmt. Dr. Godinez's input apprecriated. No blowing nose, nor sleeping on his left side. (3) Subconjunctival hemorrhage: PLAN: 2/2 to fall. Visual andrews intact, PERRL, EOMI. No hyphema. Supportive mgmt at this time. No optho needed at this time. (4) Left arm weakness: PLAN: ongoing for years (unable to flex right shoulder, but this seems to be due to rotator cuff injury/tear). MRI brain showed no CVA. 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 Acquired mild to severe multilevel foraminal narrowing. 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 And within the body is mentioned at C4-5 severe spinal stenosis with marked mass effect on the left cord. At C5-6 moderate spinal stenosis and severe right and moderate/severe left foraminal narrowing. C6-7 severe right and moderate left foraminal narrowing. Given the fact that this been ongoing for years is likely chronic. Will start steroids and consult spine surgery. PLAN: Plan VTE prophylaxis with SCDs Charges/Coding Visit Charges Inpatient E&M: 63475 Subs Hosp L2
[2024-04-20] MEDS: 0.9% Saline Lock 10 ML Syringe IV (09:37)
[2024-04-20] MEDS: Ondansetron 4 MG/2 ML Vial IV (09:37)
[2024-04-20] MEDS: Meclizine 12.5 MG Tablet PO ×2 (09:37→16:07)
[2024-04-20] MEDS: predniSONE 20 MG Tablet 40 MG PO (09:51)
--- NOTE | 2024-04-20 15:19 | CASEMGMT ---
Met with patient to complete GREER form. GREER form explained to patient who voiced understanding and signed form. Original form placed in pt?s chart and copy provided to patient. Sheron Kiser, Discharge Planning Asst
--- NOTE | 2024-04-20 16:10 | CASEMGMT ---
RN CM [employer]PERATIONS MANAGER FRANCO?to room to meet with patient for initial transition planning/care coordination assessment. RN FRANCO?introduced self and role at [facility]. Pt voices understanding and consents to assessment?at this time. Pt resting in bed in no distress at this time. Pt is A/O at this time and answers all questions appropriately. Care providers, pharmacy, and demographics verified/updated at this time. Strata:?2 PCP: Dr Menjivar Specialists: REBECA Lewis Preferred Pharmacy:[facility] Insurance: MCR, [employer] Prescription Benefit: Pt not sure if he has any. Call placed to [facility], pt has [employer] Rx benefits. Living Will/HPOA: Pt does not currently have LW/HCPOA and would like to complete, stating he wishes for his ex-, Naa, to be his HCPOA agent. LNOK: Ex-, Naa, is only contact listed. Pt states he has 2 adult children from his 1st marriage and one from his second. He states he does not see any of them. Living Arrangements: Lives alone in ground-floor apt w/no steps to enter. Indep w/ADL's and IADL's @ baseline. Transportation:?Pt states drives self and states no transportation concerns at this time. DME: States has the following DME: cane that he recently started using. He has a walker @ home, but does not use it. Pt states no need for further DME at this time. HHC/SNF: No hx of either. Discussed discharge planning. Pt is hoping he can go home, but he is not sure, stating he wants to decide once he is able to get up and work w/therapy. He states he may consider SNF, if needed, as he has been very weak. He may be interested in HHC as well. CM?to follow for any further discharge planning/needs. Pt voices no further concerns/needs at this time. Advised pt to ask for CM?if any further questions/concerns/needs arise. Voices understanding. PLAN: TBD Follow therapy/recommendations Jessi JACK RN, CM
--- NOTE | 2024-04-20 16:31 | CHAPLAIN ---
Type of Pastoral Visit ___ Initial Visit ___ Follow-up Visit ___ On-call Visit ___ General Patient Visit ___ Spiritual Assessment ___ Family Conference ___ Bereavement ___ Rapid Response ___ Code Blue ___ Other (describe below) Pastoral Care Referral From ___ Patient ___ Family ___ Nurse ___ Physician ___ Insulation Machine Operator ___ Motor Builder Assembler ___ Other (describe below) Sacrament/Intervention ___ Active listening ___ Anointing ___ Sikhism ___ Bereavement ___ Communion ___ Latoya exploration ___ ___ Life review ___ Prayer ___ Reconciliation ___ Sacrament of Sick ___ Supportive presence ___ Wedding ___ Other (describe below) Pastoral Comments CM was starting interview with the patient at time of attempted visit
[2024-04-20] MEDS: 0.9% Normal Saline (1000mL) 1,000 ML 150 ML IV (20:02)
[2024-04-21 03:14] VITALS: BP 144/66; PULSE 56; RESP 18; TEMP 36.4; O2SAT 96
--- NOTE | 2024-04-21 08:30 | PCM.PN.HOSP ---
Reason for Visit Reason for Visit: Diagnoses Conjunctival hemorrhage, unspecified eye (04/20/24) Other symptoms and signs involving the musculoskeletal system (04/20/24) Syncope and collapse (04/20/24) Maxillary fracture, left side, initial encounter for closed fracture (04/20/24) Subjective Subjective Still with dizziness upon movement. Objective Data Objective Data Vital Signs: Vital Signs Temp Pulse Resp BP Pulse Ox O2 Del Method 36.4 C L 56 L 18 144/66 H 96 Room Air 04/21/24 03:14 04/21/24 03:14 04/21/24 03:14 04/21/24 03:14 04/21/24 03:14 04/21/24 03:14 Oxygen Delivery Method Room Air Weight: 71.6 kg Body Mass Index (BMI) 24.0 Intake & Output: Intake and Output for Last 24 Hours 04/19/24 04/20/24 04/21/24 23:59 23:59 23:59 Intake Total 450 / 450 1000 / 1000 Output Total 1000 / 1000 Balance -550 / -550 1000 / 1000 Lab / Micro Data 04/20/24 05:25 04/19/24 10:50 Radiography Diagnostic Testing: Radiology Impression Echocardiogram 04/19/24 12:49 Interpretation Summary The estimated ejection fraction is 70 %. No evidence for diastolic dysfunction. Ordering Physician: Keanu Alfred Referring Physician: Kevin Menjivar Performed By: Melida Child, RDCS, RVT Physical Exam Const alert and no apparent distress HEENT HEENT Narrative: ecchymosis left eye lid. Conjunctival hemorrhage. No hyphema. Neuro Sensorium / Orientation: awake and alert Assessment & Plan Assessment/Plan (1) Syncope: PLAN: The may have been due to the vertigo related with the dizziness. Patient at actually more of a near syncopal episode where he just felt so dizzy hit his head. May be some postconcussion syndrome. Will check an echocardiogram given this dizziness he has been having over the past couple months. Additionally check orthostatic vital signs and monitor on telemetry. He may have BPPV. Add PRN meclizine. (2) Maxillary fracture, left side, initial encounter for closed fracture: PLAN: Secondary to fall. Coservative mgmt. Dr. Godinez's input apprecriated. No blowing nose, nor sleeping on his left side. Dr. Godinez has no concerns about the patient going to surgery. Just no pressure on the left maxillary sinus. (3) Subconjunctival hemorrhage: PLAN: 2/2 to fall. Visual andrews intact, PERRL, EOMI. No hyphema. Supportive mgmt at this time. No optho needed at this time. (4) Left arm weakness: PLAN: ongoing for years (unable to flex right shoulder, but this seems to be due to rotator cuff injury/tear). MRI brain showed no CVA. 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 Acquired mild to severe multilevel foraminal narrowing. 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 And within the body is mentioned at C4-5 severe spinal stenosis with marked mass effect on the left cord. At C5-6 moderate spinal stenosis and severe right and moderate/severe left foraminal narrowing. C6-7 severe right and moderate left foraminal narrowing. Given the fact that this been ongoing for years is likely chronic. Will start steroids and consult spine surgery. FELIPE Diego, tentative plan for patient to go to surgery on Wednesday, if patient agrees. PLAN: Plan VTE prophylaxis with SCDs Charges/Coding Visit Charges Inpatient E&M: 72724 Subs Hosp L2
[2024-04-21 09:58] VITALS: BP 141/69; PULSE 54; RESP 16; TEMP 36.6; O2SAT 98
[2024-04-21] MEDS: predniSONE 20 MG Tablet 40 MG PO (10:01)
[2024-04-21] MEDS: 0.9% Saline Lock 10 ML Syringe IV ×2 (10:01→15:02)
[2024-04-21] MEDS: Ensure Plus High Protein 120 ML LIQUID PO ×3 (10:09→17:28)
[2024-04-21] MEDS: BENZOCAINE/MENTHOL 1 LOZENGE MUCOUS MEM ×2 (10:10→17:28)
[2024-04-21] MEDS: Acetaminophen 325 MG Tablet 650 MG PO ×2 (10:10→17:28)
[2024-04-21] MEDS: Meclizine 12.5 MG Tablet PO ×2 (10:10→15:02)
--- NOTE | 2024-04-21 10:28 | CASEMGMT ---
Social Work SW met with pt and assisted in completing HCPOA and Living Will. Pt choosing to name his ex Naa Peetrson as HCPOA. Copy placed on pt chart and original given to pt. JAVIER Lopez
[2024-04-21 14:37] VITALS: BP 114/61; BP 150/67; PULSE 58; PULSE 79
[2024-04-21] MEDS: Ondansetron 4 MG/2 ML Vial IV (15:02)
--- NOTE | 2024-04-21 16:03 | CHAPLAIN ---
Type of Pastoral Visit _x__ Initial Visit ___ Follow-up Visit ___ On-call Visit ___ General Patient Visit ___ Spiritual Assessment ___ Family Conference ___ Bereavement ___ Rapid Response ___ Code Blue ___ Other (describe below) Pastoral Care Referral From _x__ Patient ___ Family ___ Nurse ___ Physician ___ Industrial Refrigeration Mechanic ___ Accounting Specialist ___ Other (describe below) Sacrament/Intervention _x__ Active listening ___ Anointing ___ Confucianism ___ Bereavement ___ Communion _x__ Latoya exploration ___ _x__ Life review _x__ Prayer ___ Reconciliation ___ Sacrament of Sick _x__ Supportive presence ___ Wedding ___ Other (describe below) Pastoral Comments patient is very open to discuss his life and his current need for direction and answers; pt asks some deeply spiritual questions and explores how his own latoya has developed over the years to where he is finding himself now; pt admits regrets in life and broken family relationships that may not be amends until after I'm gone; pt welcomes the time to be heard, process, ask, and receive affirmation and prayer
--- NOTE | 2024-04-21 16:21 | CONS.ORTHO ---
HPI Consult Data Date of Consult: 04/21/24 HPI Narrative HPI Narrative: SEGUNDO ROSA, is a 83 M who presents with left arm weakness and facial injuries from a fall. I was consulted for MRI findings of severe spinal cord compression and cervical spine. I saw the patient in PCU 126. I spoke with the patient and his who was on speaker phone. Patient has had at least 1 year history of progressive weakness and balance issues causing multiple falls. He has fallen at least 4 times over the last few months and the most recent fracture was 2 days ago which caused him to have maxilla fractures and facial injuries and got him admitted to the hospital. He is right-hand dominant. He has noticed significant weakness in the left upper extremity says that he just cannot move his elbow hands and fingers. He also has some shoulder weakness in the right upper extremity. He has not been able to stand or walk since admission. He denies any known history of stroke in the past. He is not on any blood thinners. She is nondiabetic. He feels that he was already weak in the fall aggravated his weakness even more since that his left arm is nearly unable to move. He is concerned that his balance difficulties have significantly worsened since that he has had tremendous difficulty being independently ambulatory. FORMERLY [facility], [facility] Medical History Anxiety Irritable bowel syndrome with diarrhea Loss of hearing Wears glasses Wears dentures Alcohol use Arthritis Syncope History of IBS Heartburn Former smoker History of stress test Diarrhea Depression Home Medications ?Medication ?Instructions ?Recorded ?Last Taken ?Type NK 02/26/24 Unknown History Allergy/AdvReac Type Severity Reaction Status Date / Time No Known Allergies Allergy Verified 04/19/24 11:00 Surgical History Hx of colonoscopy History of tonsillectomy and adenoidectomy History of appendectomy Social History household members: none housing: apartment Smoking Status: Former smoker alcohol intake: current alcohol intake frequency: holidays/special occasions only substance use type: does not use Vital Signs Vital Signs Vital Signs: 04/20/24 22:00 04/20/24 22:03 04/21/24 03:14 Temperature 97.4 F L 97.5 F L Temperature Source Temporal Temporal Pulse Rate 66 56 L Pulse Rate [Lying] Pulse Rate [Sitting (for 1 minute prior to obtaining)] Respiratory Rate 18 18 Respiratory Effort Normal Non-Labored Respiratory Depth Normal Respiratory Pattern Normal Blood Pressure 120/66 144/66 H Blood Pressure [Lying] Blood Pressure [Sitting (for 1 minute prior to obtaining)] Blood Pressure Mean 84 92 Blood Pressure Mean [Lying] Blood Pressure Mean [Sitting (for 1 minute prior to obtaining)] Blood Pressure Source Monitor Monitor Blood Pressure Position Semi-Fowlers Semi-Fowlers Blood Pressure Location Left Arm Left Arm Pulse Ox 99 96 Oxygen Delivery Method Room Air Room Air Room Air 04/21/24 09:58 04/21/24 14:37 Temperature 97.9 F Temperature Source Oral Pulse Rate 54 L Pulse Rate [Lying] 58 L Pulse Rate [Sitting (for 1 minute prior to obtaining)] 79 Respiratory Rate 16 Respiratory Effort Respiratory Depth Respiratory Pattern Blood Pressure 141/69 H Blood Pressure [Lying] 150/67 H Blood Pressure [Sitting (for 1 minute prior to obtaining)] 114/61 Blood Pressure Mean 93 Blood Pressure Mean [Lying] 94 Blood Pressure Mean [Sitting (for 1 minute prior to obtaining)] 78 Blood Pressure Source Monitor Blood Pressure Position Semi-Fowlers Blood Pressure Location Left Arm Pulse Ox 98 Oxygen Delivery Method Room Air Weight Weight: 157 lb 13.616 oz Body Mass Index (BMI) 24.0 Physical Exam Narrative Examination the neck shows no tenderness. 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 Right upper extremity shows 5 x 5 strength except for grade 4 shoulder abduction. Mireille's positive bilaterally. Lower extremity shows 4+ power in all muscle groups both sides. There is hyperreflexia in both lower extremities. Gait could not be tested due to severe difficulty with balance. Lab / Micro Data 04/20/24 05:25 04/19/24 10:50 Assessment & Plan Assessment/Plan (1) Left arm weakness: (2) Cervical myelopathy: PLAN: Plan Reviewed MRI of cervical spine done 2 days ago in the hospital at the time of admission. Also reviewed x-rays of cervical spine done on 03/08/2024. These show reduced disc height at multiple levels especially C3-4. MRI shows C3-6 stenosis with severe cord compression and myelomalacia. C4-5 has fairly large left paracentral disc herniation causing severe critical left hemicord compression with cord signal changes. Severe foraminal stenosis noticed at these levels as well. Explained to him and his the imaging findings in detail. Patient has developed severe progressive cervical myelopathy with progressive balance difficulties and multiple falls. The recent fall has caused a maxillary fracture. With time patient has noticed worsening difficulty with balance such that he has had difficulty maintaining his ambulatory function. He has severe monoparesis in the left upper extremity with nearly grade 0 power in some of the muscle groups. He has hyperreflexia consistent with myelopathy. Explained to him the natural history of cervical myelopathy which is typically that of progressive worsening. Patient is already developed significant partial paralysis of left upper extremity. Explained to him that the treatment recommendation would be surgical decompression. Recommend C3-6 ACDF in hopes of halting the progression of myelopathy. Also discussed possibility of posterior decompression alone versus posterior fixation done in addition to anterior surgery. Since majority of the compression is from the large disc herniation at C4-5 on the left, I recommend C3-6 ACDF. While this may increase his preoperative baseline dysphagia, this will in my opinion have the highest likelihood of achieving satisfactory neural decompression anteriorly. Discussed risk benefits and alternatives. The risks include but are not limited to infection, bleeding, hematoma formation, need for further surgery, persistent dysphagia, dysphonia, recurrent laryngeal nerve injury, hoarseness, Toi syndrome, visceral injury, persistent pain, persistent weakness, inability to walk, spinal cord injury, nerve root injury, paralysis, DVT, pulm embolism, pseudoarthrosis, adjacent segment degeneration, cardiopulmonary event, stroke, . Patient understands and would like to discuss with his about proceeding with surgery. Surgery will likely be scheduled during this admission likely early next week on an urgent basis to allow maximal retention of spinal cord function. Patient will think over and let us know so we can schedule surgery. Patient was in agreement. Charges/Coding Visit Charges Inpatient E&M: 79964 Init Hosp L3
[2024-04-21 17:24] VITALS: BP 102/71; PULSE 69; RESP 16; TEMP 37; O2SAT 98
[2024-04-21 21:05] VITALS: BP 132/81; PULSE 60; RESP 18; TEMP 37.1; O2SAT 97
[2024-04-22 03:10] VITALS: BP 157/79; PULSE 61; RESP 18; TEMP 36.7; O2SAT 99
[2024-04-22] MEDS: BENZOCAINE/MENTHOL 1 LOZENGE MUCOUS MEM ×3 (04:31→14:34)
[2024-04-22 08:35] VITALS: BP 162/81; PULSE 61; RESP 16; TEMP 36.9; O2SAT 98
[2024-04-22] MEDS: Meclizine 12.5 MG Tablet PO (08:40)
[2024-04-22] MEDS: Ensure Plus High Protein 120 ML LIQUID PO ×3 (08:40→17:19)
[2024-04-22] MEDS: predniSONE 20 MG Tablet 40 MG PO (08:40)
--- NOTE | 2024-04-22 08:41 | CASEMGMT ---
Addendum entered by Anita Breen 04/22/24 16:13: Social Work Referral made to TCU, SW to follow up on Wednesday. MARIA DEL CARMEN Fan Original Note: Social Work SW spoke w/pt in room in regard to discharge plan. Pt at present is deciding whether or not he will have surgery w/Dr. Diego. He is very aware his mobility is decreasing and stated to SW that he knows he won't be able to go home from here. SW spoke w/pt about rehab options, offered to provide to him a list of shelter facilities, pt declined list at this time. Pt states he does not want to go to a rest home, but would be willing to go for rehab here in [facility]. SW explained we can make the referral to TCU. SW offered support to pt. SW will continue to follow, it is anticipated pt will be here through the weekend. MARIA DEL CARMEN Fan
--- NOTE | 2024-04-22 08:51 | PCM.PN.HOSP ---
Reason for Visit Reason for Visit: Diagnoses Disease of spinal cord, unspecified (04/20/24) Conjunctival hemorrhage, unspecified eye (04/20/24) Other symptoms and signs involving the musculoskeletal system (04/20/24) Syncope and collapse (04/20/24) Maxillary fracture, left side, initial encounter for closed fracture (04/20/24) Subjective Subjective Still with dizziness with change of position. Objective Data Objective Data Vital Signs: Vital Signs Temp Pulse Resp BP Pulse Ox O2 Del Method 36.9 C 61 16 162/81 H 98 Room Air 04/22/24 08:35 04/22/24 08:35 04/22/24 08:35 04/22/24 08:35 04/22/24 08:35 04/22/24 08:35 Oxygen Delivery Method Room Air Weight: 71.6 kg Body Mass Index (BMI) 24.0 Intake & Output: Intake and Output for Last 24 Hours 04/20/24 04/21/24 04/22/24 23:59 23:59 23:59 Intake Total 450 / 450 1000 / 1000 Output Total 1000 / 1000 300 / 300 100 / 100 Balance -550 / -550 700 / 700 -100 / -100 Lab / Micro Data 04/20/24 05:25 04/19/24 10:50 Physical Exam Const alert and no apparent distress HEENT moist oral mucous membranes HEENT Narrative: left lateral nystagmus, but no reproducible dizziness. Eyes Eyes Narrative: improving conjunctival hemorrhage Resp normal respiratory effort and no retractions Assessment & Plan Assessment/Plan (1) Syncope: PLAN: The may have been due to the vertigo related with the dizziness. Patient at actually more of a near syncopal episode where he just felt so dizzy hit his head. Pt was having milder symptoms, but worsened after he fell and hit his head. I suspect he made it worse with the head injury. Suspect BPPV. Schedule meclizine for now. (2) Maxillary fracture, left side, initial encounter for closed fracture: PLAN: Secondary to fall. Coservative mgmt. Dr. Godinez's input apprecriated. No blowing nose, nor sleeping on his left side. Dr. Godinez has no concerns about the patient going to surgery. Just no pressure on the left maxillary sinus. (3) Subconjunctival hemorrhage: PLAN: 2/2 to fall. Visual andrews intact, PERRL, EOMI. No hyphema. Supportive mgmt at this time. No optho needed at this time. (4) Left arm weakness: PLAN: ongoing for years (unable to flex right shoulder, but this seems to be due to rotator cuff injury/tear). MRI brain showed no CVA. 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 Acquired mild to severe multilevel foraminal narrowing. 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 And within the body is mentioned at C4-5 severe spinal stenosis with marked mass effect on the left cord. At C5-6 moderate spinal stenosis and severe right and moderate/severe left foraminal narrowing. C6-7 severe right and moderate left foraminal narrowing. Given the fact that this been ongoing for years is likely chronic. Will start steroids and consult spine surgery. DW Dr. Diego, tentative plan for patient to go to surgery on Wednesday. Patient now in agreement. PLAN: Plan VTE prophylaxis with SCDs Disposition: I discussed with the patient, that he will may require SNF/Rehab when he is ready for discharge. Charges/Coding Visit Charges Inpatient E&M: 69290 Subs Hosp L2
[2024-04-22 14:00] VITALS: BP 116/66; PULSE 66; RESP 16; TEMP 36.9; O2SAT 96
[2024-04-22] MEDS: Meclizine HCl 25 MG Tablet PO ×2 (14:28→19:52)
[2024-04-22 19:53] VITALS: BP 140/73; PULSE 54; RESP 16; TEMP 36.1; O2SAT 96
[2024-04-22 20:44] VITALS: PULSE 54
[2024-04-23 02:00] VITALS: BP 139/89; PULSE 53; RESP 16; TEMP 36.1; O2SAT 99
[2024-04-23] MEDS: Meclizine HCl 25 MG Tablet PO ×3 (05:55→21:22)
--- NOTE | 2024-04-23 08:34 | PCM.PN.HOSP ---
Reason for Visit Reason for Visit: Diagnoses Disease of spinal cord, unspecified (04/20/24) Conjunctival hemorrhage, unspecified eye (04/20/24) Other symptoms and signs involving the musculoskeletal system (04/20/24) Syncope and collapse (04/20/24) Maxillary fracture, left side, initial encounter for closed fracture (04/20/24) Subjective Subjective Dizziness much improved. Still with paresthesias and difficulty extending his fingers on his left hand. Objective Data Objective Data Vital Signs: Vital Signs Temp Pulse Resp BP Pulse Ox O2 Del Method 36.1 C L 53 L 16 139/89 H 99 Room Air 04/23/24 02:00 04/23/24 02:00 04/23/24 02:00 04/23/24 02:00 04/23/24 02:00 04/23/24 02:00 Oxygen Delivery Method Room Air Weight: 71.6 kg Body Mass Index (BMI) 24.0 Intake & Output: Intake and Output for Last 24 Hours 04/21/24 04/22/24 04/23/24 23:59 23:59 23:59 Intake Total 1000 / 1000 220 / 220 Output Total 300 / 300 1050 / 1100 225 / 225 Balance 700 / 700 -1050 / -980 -5 / -5 Lab / Micro Data 04/20/24 05:25 04/19/24 10:50 Physical Exam Const Constitutional Narrative: No hyphema. Receding bruising and yellowing of the skin from the bruising on left face. Improving's conjunctival hemorrhage on the left eye. Eyes PERRL Neuro Neuro Narrative: Difficulty extending fingers on his left hand. Assessment & Plan Assessment/Plan (1) Syncope: PLAN: The may have been vasovagal due to the vertigo related with the dizziness. Patient at actually more of a near syncopal episode where he just felt so dizzy hit his head. Pt was having milder symptoms, but worsened after he fell and hit his head. I suspect he made it worse with the head injury. Suspect BPPV. Dizziness much improved. Schedule meclizine for now. And as needed diazepam. (2) Maxillary fracture, left side, initial encounter for closed fracture: PLAN: Secondary to fall. Coservative mgmt. Dr. Godinez's input apprecriated. No blowing nose, nor sleeping on his left side. Dr. Godinez has no concerns about the patient going to surgery. Just no pressure on the left maxillary sinus. (3) Subconjunctival hemorrhage: PLAN: 2/2 to fall. Visual andrews intact, PERRL, EOMI. No hyphema. Supportive mgmt at this time. No optho needed at this time. (4) Left arm weakness: PLAN: ongoing for years (unable to flex right shoulder, but this seems to be due to rotator cuff injury/tear). MRI brain showed no CVA. 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 Acquired mild to severe multilevel foraminal narrowing. 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 And within the body is mentioned at C4-5 severe spinal stenosis with marked mass effect on the left cord. At C5-6 moderate spinal stenosis and severe right and moderate/severe left foraminal narrowing. C6-7 severe right and moderate left foraminal narrowing. Given the fact that this been ongoing for years is likely chronic. Will start steroids and consult spine surgery. FELIPE Diego, tentative plan for patient to go to surgery on Wednesday. Patient now in agreement. PLAN: Plan VTE prophylaxis with SCDs Disposition: I discussed with the patient, that he will may require SNF/Rehab when he is ready for discharge. Charges/Coding Visit Charges Inpatient E&M: 83471 Subs Hosp L2
[2024-04-23] MEDS: predniSONE 20 MG Tablet 40 MG PO (09:03)
[2024-04-23] MEDS: BENZOCAINE/MENTHOL 1 LOZENGE MUCOUS MEM ×2 (09:03→21:22)
[2024-04-23] MEDS: Ensure Plus High Protein 120 ML LIQUID PO (09:03)
[2024-04-23 09:05] VITALS: BP 114/75; PULSE 65; RESP 16; TEMP 36.8; O2SAT 97
[2024-04-23 15:00] VITALS: BP 133/87; PULSE 60; RESP 16; TEMP 36.7; O2SAT 96
[2024-04-23] MEDS: diazePAM 2 MG Tablet PO (15:58)
[2024-04-23] MEDS: Bisacodyl 5 MG Tablet 10 MG PO (16:33)
[2024-04-23] MEDS: Acetaminophen 325 MG Tablet 650 MG PO (21:22)
[2024-04-23 21:48] VITALS: BP 137/81; PULSE 86; RESP 18; TEMP 36.6; O2SAT 97
[2024-04-23 22:22] VITALS: BMI 24.0
[2024-04-24 02:21] VITALS: BP 153/86; PULSE 56; RESP 17; TEMP 36.5; O2SAT 98
--- NOTE | 2024-04-24 02:52 | NURSING ---
This RN taking over care at this time
[2024-04-24 04:47] LABS: Absolute Lymphocyte Count 3.18 X10^3/uL (0.83-4.51); Absolute Neutrophil Count 6.3 X10^3/uL (2.0-7.7); Basophil# 0.01 X10^3/uL; Basophil% 0.1 % (0-1); Eosinophil# 0.07 X10^3/uL; Eosinophils% 0.7 % (0-5); Hematocrit 39.7 % (40-54); Hemoglobin 13.6 g/dL (13.0-16.5); Lymphocyte # 3.18 X10^3/ul (0.83-4.51); Lymphocyte % 30.5 % (19-41); Mean Corp Hgb Conc 34.3 g/dL (32-36); Mean Corpuscular Hgb 29.8 pg (27.0-32.0); Mean Corpuscular Volume 87.1 fL (80-94); Mean Platelet Vol. 8.5 fl (6.2-12.0); Monocyte# 0.82 X10^3/uL; Monocyte% 7.9 % (0-10); NRBC Flagged by Analyzer 0 % (0-5); Neutrophil # 6.31 X10^3/uL (2.7-7.7); Neutrophil % 60.3 % (47-70); Platelet Count 199 K/mm3 (150-450); RBC Distribution Width CV 12.3 % (11.6-14.6); RBC Distribution Width SD 39.4 fl (35.1-43.9); Red Blood Count 4.56 M/mm3 (4.6-6.2); White Blood Count 10.4 K/mm3 (4.4-11.0)
[2024-04-24] MEDS: Meclizine HCl 25 MG Tablet PO ×3 (05:03→21:14)
[2024-04-24 05:13] LABS: Anion Gap 8 (5-15); BUN 25 mg/dL (4-19); BUN/Creat Ratio 25.3 RATIO (10-20); Calcium,Total 8.7 mg/dL (7.6-11.0); Carbon Dioxide 26.7 mmol/L (21.0-32.0); Chloride 103 mmol/L (98-108); Creatinine, Serum 0.97 mg/dL (0.70-1.20); EST Glomerular Filtration Rate 78 (>60); Glucose 94 mg/dL (70-99); Potassium 4.2 mmol/L (3.3-5.1); Sodium Level 138 mmol/L (133-145)
--- NOTE | 2024-04-24 05:55 | EKG12_ITS ---
Test Reason : AM EKG Blood Pressure : */* mmHG Vent. Rate : 50 BPM Atrial Rate : 50 BPM P-R Int : 128 ms QRS Dur : 84 ms QT Int : 452 ms P-R-T Axes : 20 -12 36 degrees QTcB Int : 412 ms Sinus bradycardia Otherwise normal ECG When compared with ECG of 19-Apr-2024 11:31, MANUAL COMPARISON REQUIRED DATA IS UNCONFIRMED Confirmed by CHARLES CABELLO, MERCEDEZ ([id number]), photograph editor LEANDER BRAY ([id number]) on 04/24/2024 9:54:30 AM Referred By: Confirmed By: MERCEDEZ SOTO MD
--- NOTE | 2024-04-24 08:04 | PN.HOSP_ITS ---
Reason for Visit Reason for Visit: Diagnoses Disease of spinal cord, unspecified (04/20/24) Conjunctival hemorrhage, unspecified eye (04/20/24) Other symptoms and signs involving the musculoskeletal system (04/20/24) Syncope and collapse (04/20/24) Maxillary fracture, left side, initial encounter for closed fracture (04/20/24) Objective Data Objective Data Vital Signs: Vital Signs Temp Pulse Resp BP Pulse Ox O2 Del Method 97.7 F L 56 L 17 153/86 H 98 Room Air 04/24/24 02:21 04/24/24 02:21 04/24/24 02:21 04/24/24 02:21 04/24/24 02:21 04/24/24 02:21 Oxygen Delivery Method Room Air Weight: 157 lb 13.616 oz Body Mass Index (BMI) 24.0 Intake & Output: Intake and Output for Last 24 Hours 04/22/24 04/23/24 04/24/24 23:59 23:59 23:59 Intake Total 220 / 220 0 / 0 Output Total 1050 / 1100 1425 / 1425 100 / 100 Balance -1050 / -980 -1205 / -1205 -100 / -100 Lab / Micro Data 04/24/24 04:27 04/24/24 04:27 Labs: Laboratory Results - last 24 hr 04/24/24 04:27: WBC 10.4, RBC 4.56 L, Hgb 13.6, Hct 39.7 L, MCV 87.1, MCH 29.8, MCHC 34.3, RDW Std Deviation 39.4, RDW Coeff of Delia 12.3, Plt Count 199, MPV 8.5, Immature Gran % (Auto) 0.500, Neut % (Auto) 60.3, Lymph % (Auto) 30.5, [place] % (Auto) 7.9, Eos % (Auto) 0.7, Baso % (Auto) 0.1, Absolute Neuts (auto) 6.3, Absolute Lymphs (auto) 3.18, Nucleated RBC % 0, Sodium 138, Potassium 4.2, Chloride 103, Carbon Dioxide 26.7, Anion Gap 8, BUN 25 H, Creatinine 0.97, Estim Creat Clear Calc 56.80, Est GFR (MDRD) Non-Af 78, BUN/Creatinine Ratio 25.3 H, Glucose 94, Calcium 8.7 Physical Exam Narrative Seen and examined Patient admitted with syncopal episode. Has bruise around left maxillary region and around orbital region. Has chronic weakness of bilateral upper extremity worse than left upper extremity. Complain of numbness of both lower extremity from thigh downwards left worse than right. Physical exam General: Alert, Oriented x3, Cooperative HEENT: Atraumatic, PERRLA, EOMI, Normocephalic Oral: No Gingival or Mucosal Lesions/ Ulcerations Neck: Supple, No JVD, Negative Carotid Bruits Chest wall/Lungs: Air entry diminished in bilateral lung bases. No crepitation/rhonchi Cardiovascular: Regular rate, Regular Rhythm, Normal S1, Normal S2, No M/G/R Abdomen: Bowel Sounds Present, Soft, Non Tender, Non-Distended : No dysuria. No renal angle tenderness. No suprapubic tenderness. Extremities: No edema, Capillary Refill Less than 3 Seconds Skin: Subcutaneous bruise/ecchymosis over left orbital and maxillary region Musculoskeletal: LUE, abduction limited to only 30 degree. RUE limited to 60 degree. Power at knee and hip joints 4+/5 if patient needs airflow, BiPAP or high oxygen requirement, will need ID consult for baricitinib. Neurological: Cranial nerves II-XII grossly intact, DTR 2+/4. No acute focal neurological deficit. Psych/Mental Status: Normal Affect, Appropriate. Assessment & Plan Assessment/Plan (1) Syncope: PLAN: The may have been vasovagal due to the vertigo related with the dizziness. Patient at actually more of a near syncopal episode where he just felt so dizzy hit his head. Patient has been dizzy for months. Pt was having milder symptoms, but worsened after he fell and hit his head. I suspect he made it worse with the head injury. Suspect BPPV. Dizziness much improved. Schedule meclizine for now. And as needed diazepam. 04/24 patient was dizzy and PT could not move him. Orthostatic blood pressure ordered. Discussed with the orthopedic surgeon. (2) Maxillary fracture, left side, initial encounter for closed fracture: PLAN: Secondary to fall. Coservative mgmt. Dr. Godinez's input apprecriated. No blowing nose, nor sleeping on his left side. Dr. Godinez has no concerns about the patient going to surgery. Just no pressure on the left maxillary sinus. (3) Subconjunctival hemorrhage: PLAN: 2/2 to fall. Visual andrews intact, PERRL, EOMI. No hyphema. Supportive mgmt at this time. No optho needed at this time. (4) Left arm weakness: PLAN: ongoing for years (unable to flex right shoulder, but this seems to be due to rotator cuff injury/tear). MRI brain showed no CVA. 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 Acquired mild to severe multilevel foraminal narrowing. 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 And within the body is mentioned at C4-5 severe spinal stenosis with marked mass effect on the left cord. At C5-6 moderate spinal stenosis and severe right and moderate/severe left foraminal narrowing. C6-7 severe right and moderate left foraminal narrowing. Given the fact that this been ongoing for years is likely chronic. Will start steroids and consult spine surgery. DW Dr. Diego, tentative plan for patient to go to surgery on Wednesday. Patient now in agreement. 04/24: Surgery for today is canceled because of his scheduling/anesthesiology staffing problem. Patient also complained of mild urine retention. Started on Flomax. Bladder scan. PLAN: Plan VTE prophylaxis with SCDs Charges/Coding Visit Charges Inpatient E&M: 87133 Subs Hosp L2
[2024-04-24 08:22] VITALS: BP 139/90; PULSE 61; RESP 17; TEMP 36.6; O2SAT 98
[2024-04-24] MEDS: predniSONE 20 MG Tablet 40 MG PO (09:03)
[2024-04-24] MEDS: Ensure Plus High Protein 120 ML LIQUID PO ×2 (09:05→16:13)
[2024-04-24] MEDS: Tamsulosin HCl 0.4 MG Capsule PO (16:14)
[2024-04-24 18:11] VITALS: BP 105/60; BP 85/64; PULSE 70; PULSE 75; PULSE 77
[2024-04-24 20:57] VITALS: BP 100/70; PULSE 54; RESP 15; TEMP 36.4; O2SAT 97
[2024-04-24] MEDS: Lactated Ringers 1,000 ML 999 ML IV (21:13)
[2024-04-24] MEDS: 0.9% Saline Lock 10 ML Syringe IV (21:22)
[2024-04-25 03:27] VITALS: BP 141/79; PULSE 52; RESP 14; TEMP 36.7; O2SAT 98
[2024-04-25] MEDS: Meclizine HCl 25 MG Tablet PO ×3 (05:45→21:41)
[2024-04-25 07:17] LABS: Absolute Lymphocyte Count 2.98 X10^3/uL (0.83-4.51); Basophil# 0.01 X10^3/uL; Basophil% 0.1 % (0-1); Eosinophil# 0.13 X10^3/uL; Eosinophils% 1.3 % (0-5); Hematocrit 38.8 % (40-54); Hemoglobin 13.5 g/dL (13.0-16.5); Lymphocyte # 2.98 X10^3/ul (0.83-4.51); Mean Corp Hgb Conc 34.8 g/dL (32-36); Mean Corpuscular Hgb 29.9 pg (27.0-32.0); Mean Platelet Vol. 8.5 fl (6.2-12.0); Monocyte# 0.74 X10^3/uL; Monocyte% 7.5 % (0-10); NRBC Flagged by Analyzer 0 % (0-5); Neutrophil # 5.99 X10^3/uL (2.7-7.7); Neutrophil % 60.4 % (47-70); Platelet Count 186 K/mm3 (150-450); RBC Distribution Width CV 12.5 % (11.6-14.6); RBC Distribution Width SD 39.1 fl (35.1-43.9); Red Blood Count 4.51 M/mm3 (4.6-6.2); White Blood Count 9.9 K/mm3 (4.4-11.0)
[2024-04-25 08:07] LABS: Anion Gap 10 (5-15); BUN 24 mg/dL (4-19); BUN/Creat Ratio 26.7 RATIO (10-20); Calcium,Total 8.5 mg/dL (7.6-11.0); Carbon Dioxide 24.3 mmol/L (21.0-32.0); Chloride 103 mmol/L (98-108); EST Glomerular Filtration Rate 85 (>60); Estimated Creatinine Clearance 61.22 ml/min (50-250); Glucose 90 mg/dL (70-99); Potassium 4.2 mmol/L (3.3-5.1); Sodium Level 138 mmol/L (133-145)
[2024-04-25 09:30] VITALS: BP 146/72; PULSE 63; RESP 18; TEMP 36.8; O2SAT 98
[2024-04-25] MEDS: Ensure Plus High Protein 120 ML LIQUID PO ×3 (11:17→16:39)
[2024-04-25] MEDS: CARBOXYMETHYLCELLULOSE SODIUM 15 ML OPHTH DROPS 2 DRP EACH EYE ×2 (11:19→21:42)
[2024-04-25] MEDS: Senna/Docusate Sodium 1 Tablet 2 TABLET PO ×2 (11:19→21:41)
[2024-04-25] MEDS: Bisacodyl 5 MG Tablet 10 MG PO (11:19)
[2024-04-25] MEDS: Polyethylene Glycol 3350 17 GM PACKET PO (11:19)
[2024-04-25] MEDS: KCL 20MEQ in 0.9% NS 20 MEQ/1,000 ML IV.SOLN. 100 MEQ IV ×2 (11:51→21:42)
--- NOTE | 2024-04-25 12:00 | PCM.PN.ORT ---
Subjective Subjective Surgery canceled yesterday due to his OR equipment issues. Rescheduled for tomorrow 04/26/2024. Saw patient again in PCU 126. He has been on steroids and also has been having fluids for orthostatic hypotension. Reports subjective improvement since last seen by me likely from steroids and fluids. Continues to be severely weak in left upper extremity. Was able to sit at the edge with PT but unable to stand and ambulate since admission. 04/21/24: Patient has had at least 1 year history of progressive weakness and balance issues causing multiple falls. He has fallen at least 4 times over the last few months and the most recent fracture was 2 days ago which caused him to have maxilla fractures and facial injuries and got him admitted to the hospital. He is right-hand dominant. He has noticed significant weakness in the left upper extremity says that he just cannot move his elbow hands and fingers. He also has some shoulder weakness in the right upper extremity. He has not been able to stand or walk since admission. He denies any known history of stroke in the past. He is not on any blood thinners. She is nondiabetic. He feels that he was already weak in the fall aggravated his weakness even more since that his left arm is nearly unable to move. He is concerned that his balance difficulties have significantly worsened since that he has had tremendous difficulty being independently ambulatory. Objective Data Objective Data Vital Signs: Vital Signs Temp Pulse Resp BP Pulse Ox O2 Del Method 98.3 F 63 18 146/72 H 98 Room Air 04/25/24 09:30 04/25/24 09:30 04/25/24 09:30 04/25/24 09:30 04/25/24 09:30 04/25/24 09:30 Oxygen Delivery Method Room Air Weight: 157 lb 13.616 oz Body Mass Index (BMI) 24.0 Intake & Output: Intake and Output for Last 24 Hours 04/23/24 04/24/24 04/25/24 23:59 23:59 23:59 Intake Total 220 / 220 1640 / 1640 Output Total 1425 / 1425 350 / 350 200 / 200 Balance -1205 / -1205 1290 / 1290 -200 / -200 Lab / Micro Data 04/25/24 06:55 04/25/24 06:55 Labs: Laboratory Results - last 24 hr 04/25/24 06:55: WBC 9.9, RBC 4.51 L, Hgb 13.5, Hct 38.8 L, MCV 86.0, MCH 29.9, MCHC 34.8, RDW Std Deviation 39.1, RDW Coeff of Delia 12.5, Plt Count 186, MPV 8.5, Immature Gran % (Auto) 0.700, Neut % (Auto) 60.4, Lymph % (Auto) 30.0, [place] % (Auto) 7.5, Eos % (Auto) 1.3, Baso % (Auto) 0.1, Absolute Neuts (auto) 6.0, Absolute Lymphs (auto) 2.98, Nucleated RBC % 0, Sodium 138, Potassium 4.2, Chloride 103, Carbon Dioxide 24.3, Anion Gap 10, BUN 24 H, Creatinine 0.90, Estim Creat Clear Calc 61.22, Est GFR (MDRD) Non-Af 85, BUN/Creatinine Ratio 26.7 H, Glucose 90, Calcium 8.5 Physical Exam Narrative Examination the neck shows no tenderness. 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 Right upper extremity shows 5 x 5 strength except for grade 4 shoulder abduction, likely rotator cuff injury. Mireille's positive bilaterally. Lower extremity shows 4+ power in all muscle groups both sides. There is hyperreflexia in both lower extremities. Gait could not be tested due to severe difficulty with balance. Assessment & Plan Assessment/Plan (1) Left arm weakness: (2) Cervical myelopathy: PLAN: Plan Again reviewed MRI of cervical spine done 2 days ago in the hospital at the time of admission. Also reviewed x-rays of cervical spine done on 03/08/2024. These show reduced disc height at multiple levels especially C3-4. MRI shows C3-6 stenosis with severe cord compression and myelomalacia. C4-5 has fairly large left paracentral disc herniation causing severe critical left hemicord compression with cord signal changes. Severe foraminal stenosis noticed at these levels as well. Explained to him and his the imaging findings in detail. Patient has developed severe progressive cervical myelopathy with progressive balance difficulties and multiple falls. The recent fall has caused a maxillary fracture. With time patient has noticed worsening difficulty with balance such that he has had difficulty maintaining his ambulatory function. He has severe monoparesis in the left upper extremity with nearly grade 0 power in some of the muscle groups. He has hyperreflexia consistent with myelopathy. Explained to him the natural history of cervical myelopathy which is typically that of progressive worsening. Patient is already developed significant partial paralysis of left upper extremity. Explained to him that the treatment recommendation would be surgical decompression. Recommend C3-6 ACDF in hopes of halting the progression of myelopathy. Also discussed possibility of posterior decompression alone versus posterior fixation done in addition to anterior surgery. Since majority of the compression is from the large disc herniation at C4-5 on the left, I recommend C3-6 ACDF. While this may increase his preoperative baseline dysphagia, this will in my opinion have the highest likelihood of achieving satisfactory neural decompression anteriorly. Discussed risk benefits and alternatives. The risks include but are not limited to infection, bleeding, hematoma formation, need for further surgery, persistent dysphagia, dysphonia, recurrent laryngeal nerve injury, hoarseness, Toi syndrome, visceral injury, persistent pain, persistent weakness, inability to walk, spinal cord injury, nerve root injury, paralysis, DVT, pulm embolism, pseudoarthrosis, adjacent segment degeneration, cardiopulmonary event, stroke, . Patient understands and agrees to proceed with surgery. All questions answered. Discussed with Dr. Godinez in plastic surgery regarding the left maxilla fracture. Discussed with patient regarding additional pathology such as vertigo, dizziness, orthostatic hypotension, right shoulder rotator cuff pathology which would likely not improve most cervical spine surgery. This may need additional treatment. Charges/Coding Visit Charges Inpatient E&M: 96701 Subs Hosp L3
[2024-04-25 12:32] VITALS: BP 115/86; BP 88/47; PULSE 56; PULSE 73
--- NOTE | 2024-04-25 14:32 | PN.SURG_ITS ---
<Statement entered by Segundo Godinez MD - 04/25/24 21:17> I have personally performed a face to face assessment of the patient and have reviewed the CHAD Note. Subjective Subjective Patient is doing well. He is sitting in bed. He denies complaints at this time. Objective Data Objective Data Vital Signs: Vital Signs Temp Pulse Resp BP Pulse Ox O2 Del Method 98.3 F 56 L 18 88/47 L 98 Room Air 04/25/24 09:30 04/25/24 12:32 04/25/24 09:30 04/25/24 12:32 04/25/24 09:30 04/25/24 09:30 Oxygen Delivery Method Room Air Weight: 157 lb 13.616 oz Body Mass Index (BMI) 24.0 Intake & Output: Intake and Output for Last 24 Hours 04/23/24 04/24/24 04/25/24 23:59 23:59 23:59 Intake Total 220 / 220 1640 / 1640 740 / 740 Output Total 1425 / 1425 350 / 350 880 / 880 Balance -1205 / -1205 1290 / 1290 -140 / -140 Lab / Micro Data Attestation: I reviewed the patient's lab results. 04/25/24 06:55 04/25/24 06:55 Labs: Laboratory Results - last 24 hr 04/25/24 06:55: WBC 9.9, RBC 4.51 L, Hgb 13.5, Hct 38.8 L, MCV 86.0, MCH 29.9, MCHC 34.8, RDW Std Deviation 39.1, RDW Coeff of Delia 12.5, Plt Count 186, MPV 8.5, Immature Gran % (Auto) 0.700, Neut % (Auto) 60.4, Lymph % (Auto) 30.0, [place] % (Auto) 7.5, Eos % (Auto) 1.3, Baso % (Auto) 0.1, Absolute Neuts (auto) 6.0, Absolute Lymphs (auto) 2.98, Nucleated RBC % 0, Sodium 138, Potassium 4.2, Chloride 103, Carbon Dioxide 24.3, Anion Gap 10, BUN 24 H, Creatinine 0.90, Estim Creat Clear Calc 61.22, Est GFR (MDRD) Non-Af 85, BUN/Creatinine Ratio 26.7 H, Glucose 90, Calcium 8.5 Physical Exam Narrative Left eye bruising is resolving. Patient is able to raise eyebrows, close eyes, smile, purse lips. His visual acuity is intact. EOM intact bilaterally. Const alert and oriented x3 General Appearance: cooperative Assessment & Plan Assessment/Plan (1) Maxillary sinus fracture: (2) Maxillary fracture, left side, initial encounter for closed fracture: PLAN: Plan He is scheduled for surgery with Dr. Diego tomorrow. He may have normal intubation, but no pressure with intubation. No pressure on left cheek at the face maxillary fracture site. Continue with no nose blowing. If he has nose bleeds, use Afrin nasal spray. Keep head of bed elevated 45 degrees or greater to help prevent swelling. Discussed plan of care with Dr. Godinez.
--- NOTE | 2024-04-25 14:41 | PCM.PN.HOSP ---
Reason for Visit Reason for Visit: Diagnoses Disease of spinal cord, unspecified (04/20/24) Conjunctival hemorrhage, unspecified eye (04/20/24) Other symptoms and signs involving the musculoskeletal system (04/20/24) Syncope and collapse (04/20/24) Maxillary fracture, left side, initial encounter for closed fracture (04/20/24) Objective Data Objective Data Vital Signs: Vital Signs Temp Pulse Resp BP Pulse Ox O2 Del Method 98.3 F 56 L 18 88/47 L 98 Room Air 04/25/24 09:30 04/25/24 12:32 04/25/24 09:30 04/25/24 12:32 04/25/24 09:30 04/25/24 09:30 Oxygen Delivery Method Room Air Weight: 157 lb 13.616 oz Body Mass Index (BMI) 24.0 Intake & Output: Intake and Output for Last 24 Hours 04/23/24 04/24/24 04/25/24 23:59 23:59 23:59 Intake Total 220 / 220 1640 / 1640 740 / 740 Output Total 1425 / 1425 350 / 350 880 / 880 Balance -1205 / -1205 1290 / 1290 -140 / -140 Lab / Micro Data 04/25/24 06:55 04/25/24 06:55 Labs: Laboratory Results - last 24 hr 04/25/24 06:55: WBC 9.9, RBC 4.51 L, Hgb 13.5, Hct 38.8 L, MCV 86.0, MCH 29.9, MCHC 34.8, RDW Std Deviation 39.1, RDW Coeff of Delia 12.5, Plt Count 186, MPV 8.5, Immature Gran % (Auto) 0.700, Neut % (Auto) 60.4, Lymph % (Auto) 30.0, [place] % (Auto) 7.5, Eos % (Auto) 1.3, Baso % (Auto) 0.1, Absolute Neuts (auto) 6.0, Absolute Lymphs (auto) 2.98, Nucleated RBC % 0, Sodium 138, Potassium 4.2, Chloride 103, Carbon Dioxide 24.3, Anion Gap 10, BUN 24 H, Creatinine 0.90, Estim Creat Clear Calc 61.22, Est GFR (MDRD) Non-Af 85, BUN/Creatinine Ratio 26.7 H, Glucose 90, Calcium 8.5 Physical Exam Narrative Seen and examined [facility] ess has resolved not is restricted valvulae and patient gets up. Patient was hypotensive yesterday therefore 1 L IV bolus was given and blood pressure improved. Systolic blood pressure was 139/90. In the morning today, ortho vitals shows 88/47, 56/min on lying and sitting 115/86, heart rate 73/min. Confirmed with the nursing staff and documented vitals are correct at the took it twice. Patient admitted with syncopal episode. Has bruise around left maxillary region and around orbital region. Has chronic weakness of bilateral upper extremity worse than left upper extremity. Complain of numbness of both lower extremity from thigh downwards left worse than right. Physical exam General: Alert, Oriented x3, Cooperative HEENT: Atraumatic, PERRLA, EOMI, Normocephalic Oral: No Gingival or Mucosal Lesions/ Ulcerations Neck: Supple, No JVD, Negative Carotid Bruits Chest wall/Lungs: Air entry diminished in bilateral lung bases. No crepitation/rhonchi Cardiovascular: Regular rate, Regular Rhythm, Normal S1, Normal S2, No M/G/R Abdomen: Bowel Sounds Present, Soft, Non Tender, Non-Distended : No dysuria. No renal angle tenderness. No suprapubic tenderness. Extremities: No edema, Capillary Refill Less than 3 Seconds Skin: Subcutaneous bruise/ecchymosis over left orbital and maxillary region Musculoskeletal: LUE, abduction limited to only 30 degree. RUE limited to 60 degree. Power at knee and hip joints 4+/5 if patient needs airflow, BiPAP or high oxygen requirement, will need ID consult for baricitinib. Neurological: Cranial nerves II-XII grossly intact, DTR 2+/4. No acute focal neurological deficit. Psych/Mental Status: Normal Affect, Appropriate. Assessment & Plan Assessment/Plan (1) Syncope: PLAN: The may have been vasovagal due to the vertigo related with the dizziness. Patient at actually more of a near syncopal episode where he just felt so dizzy hit his head. Patient has been dizzy for months. Pt was having milder symptoms, but worsened after he fell and hit his head. I suspect he made it worse with the head injury. Suspect BPPV. Dizziness much improved. Schedule meclizine for now. And as needed diazepam. 3/17 patient was dizzy and PT could not move him. Orthostatic blood pressure ordered. Discussed with the orthopedic surgeon. 04/25: Dizziness has resolved but now it is chronic only on standing up. Orthostatic vitals as documented. IV fluid started. Plan for surgery tomorrow. N.p.o. past midnight. (2) Maxillary fracture, left side, initial encounter for closed fracture: PLAN: Secondary to fall. Coservative mgmt. Dr. Godinez's input apprecriated. No blowing nose, nor sleeping on his left side. Dr. Godinez has no concerns about the patient going to surgery. Just no pressure on the left maxillary sinus. (3) Subconjunctival hemorrhage: PLAN: / to fall. Visual andrews intact, PERRL, EOMI. No hyphema. Supportive mgmt at this time. No optho needed at this time. (4) Left arm weakness: PLAN: ongoing for years (unable to flex right shoulder, but this seems to be due to rotator cuff injury/tear). MRI brain showed no CVA. 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 Acquired mild to severe multilevel foraminal narrowing. 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 And within the body is mentioned at C4-5 severe spinal stenosis with marked mass effect on the left cord. At C5-6 moderate spinal stenosis and severe right and moderate/severe left foraminal narrowing. C6-7 severe right and moderate left foraminal narrowing. Given the fact that this been ongoing for years is likely chronic. Will start steroids and consult spine surgery. FELIPE Diego, tentative plan for patient to go to surgery on Wednesday. Patient now in agreement. 04/24: Surgery for today is canceled because of his scheduling/anesthesiology staffing problem. Patient also complained of mild urine retention. Started on Flomax. Bladder scan. PLAN: Plan VTE prophylaxis with SCDs Charges/Coding Visit Charges Inpatient E&M: 92721 Subs Hosp L2
--- NOTE | 2024-04-25 15:49 | CHAPLAIN ---
Type of Pastoral Visit ___ Initial Visit _x__ Follow-up Visit ___ On-call Visit ___ General Patient Visit ___ Spiritual Assessment ___ Family Conference ___ Bereavement ___ Rapid Response ___ Code Blue ___ Other (describe below) Pastoral Care Referral From _x__ Patient ___ Family ___ Nurse ___ Physician ___ Litigation Counsel ___ Blending Machine Feeder ___ Other (describe below) Sacrament/Intervention _x__ Active listening ___ Anointing ___ Jewish ___ Bereavement ___ Communion ___ Latoya exploration ___ ___ Life review _x__ Prayer ___ Reconciliation ___ Sacrament of Sick _x__ Supportive presence ___ Wedding ___ Other (describe below) Pastoral Comments patient and his ex- are in the room; both are welcoming and express appreciation for the follow up visit; pt is to have surgery tomorrow and explains his thoughts on it; a prayer is welcomed for support and an offer of future visits as desired
[2024-04-25 16:32] VITALS: BP 106/61; PULSE 57; RESP 17; TEMP 36.7; O2SAT 98
[2024-04-25] MEDS: Tamsulosin HCl 0.4 MG Capsule PO (16:39)
[2024-04-25 21:35] VITALS: BP 145/69; PULSE 50; RESP 16; TEMP 36.7; O2SAT 93
[2024-04-26] VITALS (22 sets, daily range): BP systolic 79–157; BP diastolic 42–89; PULSE 53–80; RESP 16–18; TEMP 36.3–36.7; O2SAT 90–100; BMI 25.3
[2024-04-26] MEDS: Meclizine HCl 25 MG Tablet PO ×2 (05:46→20:30)
[2024-04-26 06:25] LABS: Absolute Neutrophil Count 5.4 X10^3/uL (2.0-7.7); Basophil# 0.01 X10^3/uL; Basophil% 0.1 % (0-1); Eosinophil# 0.19 X10^3/uL; Eosinophils% 2.2 % (0-5); Hematocrit 38.8 % (40-54); Hemoglobin 13.3 g/dL (13.0-16.5); Lymphocyte % 26.4 % (19-41); Mean Corp Hgb Conc 34.3 g/dL (32-36); Mean Corpuscular Hgb 29.8 pg (27.0-32.0); Mean Platelet Vol. 8.5 fl (6.2-12.0); Monocyte# 0.71 X10^3/uL; Monocyte% 8.2 % (0-10); NRBC Flagged by Analyzer 0 % (0-5); Neutrophil # 5.43 X10^3/uL (2.7-7.7); Neutrophil % 62.4 % (47-70); Platelet Count 168 K/mm3 (150-450); RBC Distribution Width CV 12.5 % (11.6-14.6); RBC Distribution Width SD 39.8 fl (35.1-43.9); Red Blood Count 4.46 M/mm3 (4.6-6.2); White Blood Count 8.7 K/mm3 (4.4-11.0)
[2024-04-26 06:51] LABS: Anion Gap 6 (5-15); BUN 20 mg/dL (4-19); BUN/Creat Ratio 23.4 RATIO (10-20); Calcium,Total 8.2 mg/dL (7.6-11.0); Carbon Dioxide 22.8 mmol/L (21.0-32.0); Chloride 107 mmol/L (98-108); Creatinine, Serum 0.83 mg/dL (0.70-1.20); EST Glomerular Filtration Rate 87 (>60); Estimated Creatinine Clearance 66.39 ml/min (50-250); Glucose 91 mg/dL (70-99); Potassium 4.5 mmol/L (3.3-5.1); Sodium Level 136 mmol/L (133-145)
[2024-04-26] MEDS: 0.9% Saline Lock 10 ML Syringe IV ×4 (08:39→18:57)
--- NOTE | 2024-04-26 09:45 | PCM.PN.ORT ---
Subjective Subjective Saw patient in preop. Reviewed history again and examined the patient again. Again reviewed imaging and discussed surgery. All questions were answered. Consent was signed. No new changes compared to yesterday's neuroexam. Patient is in agreement. Objective Data Objective Data Vital Signs: Vital Signs Temp Pulse Resp BP Pulse Ox O2 Del Method 98.0 F 80 18 157/89 H 98 Room Air 04/26/24 08:40 04/26/24 08:49 04/26/24 08:40 04/26/24 08:40 04/26/24 08:40 04/26/24 08:40 Oxygen Delivery Method Room Air Weight: 166 lb 10.711 oz Body Mass Index (BMI) 25.3 Intake & Output: Intake and Output for Last 24 Hours 04/24/24 04/25/24 04/26/24 23:59 23:59 23:59 Intake Total 1640 / 1640 2085 / 2085 1000 / 1000 Output Total 350 / 350 1580 / 1580 600 / 600 Balance 1290 / 1290 505 / 505 400 / 400 Lab / Micro Data 04/26/24 05:58 04/26/24 05:58 Labs: Laboratory Results - last 24 hr 04/26/24 05:58: WBC 8.7, RBC 4.46 L, Hgb 13.3, Hct 38.8 L, MCV 87.0, MCH 29.8, MCHC 34.3, RDW Std Deviation 39.8, RDW Coeff of Delia 12.5, Plt Count 168, MPV 8.5, Immature Gran % (Auto) 0.700, Neut % (Auto) 62.4, Lymph % (Auto) 26.4, [place] % (Auto) 8.2, Eos % (Auto) 2.2, Baso % (Auto) 0.1, Absolute Neuts (auto) 5.4, Absolute Lymphs (auto) 2.30, Nucleated RBC % 0, Sodium 136, Potassium 4.5, Chloride 107, Carbon Dioxide 22.8, Anion Gap 6, BUN 20 H, Creatinine 0.83, Estim Creat Clear Calc 66.39, Est GFR (MDRD) Non-Af 87, BUN/Creatinine Ratio 23.4 H, Glucose 91, Calcium 8.2 Charges/Coding Visit Charges Inpatient E&M: 52971 Subs Hosp L1
--- NOTE | 2024-04-26 09:49 | PCM.POST.ANE ---
Anesthesia: Postop Eval I Current Vital Signs Temperature: 97.4 F Pulse Rate: 67 Blood Pressure: 124/74 Respiratory Rate: 16 Pulse Ox: 98 Assessment Airway patent: Yes Spontaneous unlabored respirations: Yes nausea: No Vomiting: No Anesthesia Complication: No Fluid Hydration Crystalloid volume administer (ml): 1,500 Total IV fluid infused: 1,500 Progress Note Anesthesia document: Postop Eval 1 completed: Yes
[2024-04-26] MEDS: 0.9% Normal Saline (1000mL) 1,000 ML 15 ML IV (10:03)
--- NOTE | 2024-04-26 10:33 | PCM.PRE.AN2 ---
ASA Classification* ASA Classification ASA Classification: 3 Assessment & Plan Anesthesia* Anesthesia Assessment Anesthesia Assessment: Discussed sedation and/or anesthesia options, risks, benefits, and alternatives with patient/parents/legal guardian/POA. Questions invited. The patient/parents/legal guardian/POA seems to understand and agrees to proceed with anesthesia plan. Reviewed the physical assessment, medical history, allergy history and patient home medications list prior to surgery/procedure/anesthetic and documented any changes. Performed airway and anesthesia risk assessments. Anesthesia Type Anesthesia Type: General History Source History Obtained from:: Patient and Chart Anesthesia Focused Assessment* Temperature: 97.4 F Pulse Rate: 67 Blood Pressure: 124/74 Respiratory Rate: 16 Pulse Ox: 98 Oxygen Delivery Method: Room Air Airway Assessment Mouth opens: >3 cm Mallampati Score: II Teeth Condition: Intact and Dentures (Upper and Lower Partials) Neck Range of motion (ROM): Limited ROM Comment: Left Maxillary Fracture Focused Labs Anesthesia Preop lab: CBC WBC 8.7 K/mm3 (4.4-11.0) 04/26/24 05:58 04/26/24 RBC 4.46 M/mm3 (4.6-6.2) L 04/26/24 05:58 04/26/24 Hgb 13.3 g/dL (13.0-16.5) 04/26/24 05:58 04/26/24 Hct 38.8 % (40-54) L 04/26/24 05:58 04/26/24 Plt Count 168 K/mm3 (150-450) 04/26/24 05:58 04/26/24 CHEMISTRY Potassium 4.5 mmol/L (3.3-5.1) 04/26/24 05:58 04/26/24 Sodium 136 mmol/L (133-145) 04/26/24 05:58 04/26/24 BUN 20 mg/dL (4-19) H 04/26/24 05:58 04/26/24 Creatinine 0.83 mg/dL (0.70-1.20) 04/26/24 05:58 04/26/24 Glucose 91 mg/dL (70-99) 04/26/24 05:58 04/26/24 POC Glucose 143 mg/dL (74-106) H 04/19/24 10:57 04/19/24 TSH 1.22 uIU/mL (0.358-3.74) 10/22/22 11:16 10/22/22 COAG PT 13.5 SECONDS (11.7-14.9) 04/19/24 10:50 04/19/24 Pre-Assessment Diagnosis/Proposed Procedure Planned Operative Procedure(s): ACDF C3-6 Anesthesia History Anesthesia History - policyholder information clerk: Anesthesia History - policyholder information clerk Hx Hospitalization No 03/08/24 08:44 Any Problems With Anesthesia No 04/25/24 21:52 Cholinesterase deficiency No 04/25/24 21:52 You/Your Family Experience No 04/25/24 21:52 fever (hyperthermia) with Relationship Recent Exposure to Contagious No 04/25/24 21:52 Disease Does patient have nerve No 04/25/24 21:52 stimulator Patient instructed to have No 04/25/24 21:52 device shut off --Does patient have Pacemaker No 04/26/24 08:40 or ICD? When Was Last Pacemaker Check QUESTION #4 FULL TEXT: You/Your Family Experience fever (hyperthermia) with Anesthesia Last Oral Intake Last Oral intake: Last Oral Intake NPO since 00:00 04/26/24 08:40 Meds taken in AM with sips of Yes 04/26/24 08:40 water? Meds patient instructed to ativert at 0546 04/26/24 08:40 take am of surgery PONV PONV - policyholder information clerk: PONV - policyholder information clerk Female HX of Motion Sickness HX of N/V After Surgery Non-Smoker Duration of Surgery greater than 60 minutes Number of Risk Factors PONV Score Height & Weight Height & Weight: Anesthesia: Height & Weight Height 5 ft 8 in 04/26/24 08:40 Weight: 75.6 kg 04/26/24 08:40 Body Mass Index (BMI) 25.3 04/26/24 08:40 Respiratory Assessment Respiratory Assessment - policyholder information clerk: Respiratory Tract Infection Hx - policyholder information clerk Hx Respiratory Tract Infection No 04/25/24 21:52 STOP Sleep Apnea STOP Sleep Apnea - policyholder information clerk: STOP Sleep Apnea - policyholder information clerk Hx Hypertension No 04/20/24 12:54 Hx Sleep Apnea No 04/19/24 15:04 CPAP BIPAP Do you snore loudly (louder No 04/19/24 15:04 than talking or can be heard Do you often feel tired/ No 04/19/24 15:04 fatigued/ sleepy during daytime? Has anyone observed you stop No 04/19/24 15:04 breathing during sleep? STOP Results Negative 04/19/24 15:04 QUESTION #5 FULL TEXT : Do you snore loudly (louder than talking or can be heard through closed doors)? 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 Specify any problems Hx of Preganancy in last 3 N/A 04/19/24 15:04 Months Nurse Filling Out Transfusion AHAGGERTY 04/19/24 15:04 & Questions: Date: 04/19/24 04/19/24 15:04 Time: 16:35 04/19/24 15:04 Patient unable to answer at this time (ie. confused, unrespo /Reproduction History /Reproductive History - policyholder information clerk: /Reproductive Hx- policyholder information clerk Hx Now No 04/25/24 21:52 Gestational Age (in weeks): EDC: Hx Hx Para Hx Section SAB No 04/25/24 21:52 Active Medications Active Medications: Current Medications Generic Name Dose Route Start Last Admin Trade Name Freq PRN Reason Stop Dose Admin Acetaminophen 650 mg 04/19/24 15:02 04/23/24 21:22 Acetaminophen 325 Mg Tablet PO 650 mg Q6H PRN PRN Administration Pain 1-10 Or Fever >100.7 Artificial Tears 2 drp 04/25/24 07:13 04/25/24 21:42 Carboxymethylcellulose Sodium 15 Ml Ophth Drops EACH EYE 2 drp Q1H PRN Administration DRY EYES Diazepam 2 mg 04/22/24 13:22 04/23/24 15:58 Diazepam 2 Mg Tablet PO 2 mg 4X/DAY PRN PRN Administration VERTIGO Tranexamic Acid 1,000 mg/ 110 mls @ 660 mls/hr 04/26/24 10:30 Sodium Chloride IV 04/26/24 10:39 X1 ONE Tranexamic Acid 1,000 mg/ 110 mls @ 660 mls/hr 04/26/24 10:30 Sodium Chloride IV 04/26/24 10:39 X1 ONE Sodium Chloride 1,000 mls @ 15 mls/hr 04/26/24 10:05 04/26/24 10:03 IV 15 mls/hr .Q48H FLORINDA Administration Meclizine HCl 25 mg 04/22/24 14:00 04/26/24 05:46 Meclizine Hcl 25 Mg Tablet PO 25 mg TID FLORINDA Administration Nutritional Formula (Lactose Free) 120 ml 04/20/24 17:00 04/26/24 07:37 Ensure Plus High Protein 120 Ml Liquid PO Not Given TIDCM [facility] Ondansetron HCl 4 mg 04/19/24 15:02 04/21/24 15:02 Ondansetron 4 Mg/2 Ml Vial IV 4 mg Q8H PRN PRN Administration NAUSEA/VOMITING Oxycodone HCl 2.5 - 5 mg 04/19/24 15:02 Oxycodone 5 Mg Tablet PO Q4H PRN PRN Pain Score 4-10 Polyethylene Glycol 17 gm 04/25/24 10:00 04/26/24 08:56 Polyethylene Glycol 3350 17 Gm Packet PO Not Given DAILY FLORINDA Senna/Docusate Sodium 2 tablet 04/25/24 10:00 04/26/24 08:56 Senna/Docusate Sodium 1 Tablet PO Not Given BID [facility] Sodium Chloride 10 - 40 ml 04/19/24 15:06 04/26/24 08:39 0.9% Saline Lock 10 Ml Syringe IV 10 ml UD PRN Administration SALINE FLUSH Tamsulosin HCl 0.4 mg 04/24/24 14:15 04/25/24 16:39 Tamsulosin Hcl 0.4 Mg Capsule PO 0.4 mg DAILY@1730 FLORINDA Administration Throat Lozenges 1 lozenge 04/20/24 18:53 04/23/24 21:22 Benzocaine/Menthol 1 Lozenge MUCOUS MEM 1 lozenge Q2H PRN PRN Administration SORE THROAT PFSH Medical History Anxiety Irritable bowel syndrome with diarrhea Loss of hearing Wears glasses Wears dentures Alcohol use Arthritis Syncope History of IBS Heartburn Former smoker History of stress test Diarrhea Depression Home Medications ?Medication ?Instructions ?Recorded ?Last Taken ?Type NK 02/26/24 Unknown History Allergy/AdvReac Type Severity Reaction Status Date / Time No Known Allergies Allergy Verified 04/19/24 11:00 Surgical History Hx of colonoscopy History of tonsillectomy and adenoidectomy History of appendectomy Social History household members: none housing: apartment Smoking Status: Former smoker alcohol intake: current alcohol intake frequency: holidays/special occasions only substance use type: does not use Review of Systems (Anesthesia) ROS Narrative System reviewed and no additional complaints, except as documented.
[2024-04-26] MEDS: Cefazolin 2 GM in Syringe 10 ML IV ×2 (10:43→18:58)
--- NOTE | 2024-04-26 11:05 | RAD_ITS ---
PROCEDURE: CERV SPINE 2 OR 3 VIEWS; O.R. FLUORO FOR C-ARM 04/26/2024 REASON FOR EXAM: ANTERIOR DISCECTOMY FUSION C3-6 TECHNIQUE: Intraoperative fluoroscopy performed for anterior cervical discectomy and fusion surgery. 10 fluoroscopic images were also obtained. COMPARISON: None. RAD/Cerv Spine 2 or 3 Views IMPRESSION: Intraoperative fluoroscopy performed for anterior cervical discectomy and fusio n surgery. 10 fluoroscopic images were also obtained. Reading Location: [id number]
--- NOTE | 2024-04-26 11:05 | RAD_ITS ---
PROCEDURE: CERV SPINE 2 OR 3 VIEWS; O.R. FLUORO FOR C-ARM 04/26/2024 REASON FOR EXAM: ANTERIOR DISCECTOMY FUSION C3-6 TECHNIQUE: Intraoperative fluoroscopy performed for anterior cervical discectomy and fusion surgery. 10 fluoroscopic images were also obtained. COMPARISON: None. RAD/O.R. Fluoro for C-Arm IMPRESSION: Intraoperative fluoroscopy performed for anterior cervical discectomy and fusio n surgery. 10 fluoroscopic images were also obtained. Reading Location: [id number]
[2024-04-26] MEDS: TXA 1000mg in NS100 100ml (IVPB at Incision) 660 MG IV (11:07)
[2024-04-26] MEDS: TXA 1000mg in NS100 100ml (IVPB at Closure) 660 MG IV (13:36)
--- NOTE | 2024-04-26 14:22 | PCM.POST.ANE ---
Anesthesia: Postop Eval I Current Vital Signs Temperature: 97.7 F Pulse Rate: 66 Blood Pressure: 107/55 Respiratory Rate: 16 Pulse Ox: 94 Assessment Airway patent: Yes Spontaneous unlabored respirations: Yes nausea: No Vomiting: No Anesthesia Complication: No Fluid Hydration Crystalloid volume administer (ml): 1,400 Total IV fluid infused: 1,400 Progress Note Anesthesia document: Postop Eval 1 completed: Yes
--- NOTE | 2024-04-26 14:25 | PCM.OPRPT ---
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, stenosis, cord compression with myelopathy, cord signal changes Post-Operative Diagnosis: Same Surgery/Procedure Performed: C3-6 ACDF shaft sinker: Yes [employer]obile T[employer] Builder: Awa Chadwick Tasks completed by office administrative assistant: Closing, Removing tissue, Implanting device, Hemostasis: Electrocautery and Retracting Type of Anesthesia: General RN Documented Start/Stop Times: Operation Date: 04/26/24 10:50 Case Time Into Pre-Op 04/26/24 09:44 Anesthesia Start 04/26/24 10:43 Into Room 04/26/24 10:43 Out of Pre-Op 04/26/24 10:45 Procedure Start 04/26/24 11:19 Procedure End 04/26/24 14:05 Anesthesia End 04/26/24 14:12 Out of Room 04/26/24 14:12 Procedure Start Time: 11:19 Procedure Stop Time: 14:05 Select all DRAINS/GRAFTS/IMPLANTS that apply: Drains Drain details: Jeffrey drain , Graft Graft details: Structural allograft cortical cancellous strut, DBX and Implanted device Implanted device details: Medtronic Circle Elite plate instrumentation Estimated Blood Loss: 50 cc Specimen collected: No Description of surgery: Preoperative diagnosis: 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 Anesthesia: Gen. endotracheal Estimated blood loss: 50 mL Complications: None Instrumentation used: Medtronic Circle Elite plate, LASR corticocancellous block Indications: The patient is a pleasant 83-year-old gentleman who presented with severe weakness and left worse than right upper extremity, frequent falls and balance issues. His last fall was in to have maxilla undisplaced fracture and patient was admitted. MRI showed C3-6 disc degeneration with stenosis with cord compression with cord signal changes. C4-5 showed large left paracentral disc herniation. In order to halt the progression of myelopathy, the patient requested surgical treatment. All risks and benefits of the procedure were explained to the patient. The risks include but are not limited to infection, bleeding, injury to nerves and vessels, vertebral artery injury, spinal cord injury, paralysis, vocal cord paralysis, injury to esophagus, pseudoarthrosis, need for further procedures, adjacent segment degeneration. Procedure: The patient was identified in the preoperative suite using unique patient identifiers. Skin was marked consent was taken and all questions were answered. The patient was then brought back to the operative room and a timeout was performed. General endotracheal anesthesia was given. Intraoperative neuro monitoring leads were applied. The patient was carefully positioned supine on a regular OR table. A lateral view with a C-arm was done to identify the level and to define the incision. The anterior neck was then prepped and draped in the usual fashion. A final timeout was then performed. A transverse skin incision was taken to the left of midline. Subcutaneous tissue was then divided with Bovie. Platysma was identified and cut along the incision with scissors. The fascial interval between the sternocleidomastoid and the larynx was developed. Omohyoid was identified and retracted. The esophagus with the larynx was retracted medially to reach the prevertebral fascia. Marker x-ray was performed with bent spinal needle and disc space and levels were confirmed. Longus coli muscle was elevated on both sides at and above and below C3-6 discs. Self-retaining retractors were then placed. A long handle knife was then used to perform annulotomy at C4-5. Disc fragments were removed with the pituitary. [place] pins were placed in C4 and C5 for disc distraction. Curettes and bur was utilized to remove cartilage from the endplates. Discectomy was performed laterally up to the uncovertebral joints. Posterior osteophytes were thinned down with the bur and adequate decompression in the central and foraminal areas were performed and PLL was thinned out and resected. Extruded disc fragments were removed and the left paracentral region and spinal cord was exposed and completely decompressed. Nerve hook was utilized to tease out all the extruded fragments above and below the disc. Once the disc space was prepared, trials of various sizes were utilized. Thorough irrigation was given. 7 mm LASR cortical cancellous allograft bone large footprint was then fashioned in such a way that concavities were burred out inferiorly and superiorly and half cc of DBX (demineralized bone matrix) was squeezed into the cancellous portion. The graft was then inserted into the C4-5 disc space. The retractors were then repositioned and the procedure was repeated for C3-4 and C5-6 discs with complete discectomy. Graft sizes were 6 mm at with large footprint at C3-4 and C5-6. The grafts were found to be in good apposition with good pullout strength. A 60 mm Medtronic Circle Elite plate was contoured for larger lordosis due to the patient's anatomy, and then fixed to C3-C6 with 17 mm screws. A lateral x-ray was then taken to check the length of the screws. Both AP and lateral x-rays showed good positioning of plate and screws. The locking mechanism over the screw heads was then turned. Thorough irrigation was again given. Hemostasis was achieved. A Reinaldo drain was then inserted. Closure was done with 3-0 Vicryl for the platysma and subcutaneous tissue layers and 4-0 Monocryl for the skin. Closure was done around the drain. Steri-Strips were applied and dressing was done with 4 x 4 gauze and Tegaderm. A cervical collar was then applied. The patient was then woken up from anesthesia extubated and taken to PACU in stable condition. From here, the patient will be transitioned to the floor. Intraoperative neuro monitoring was performed throughout this procedure. Motor evoked potentials were run periodically. All potentials remained at baseline throughout the procedure. I was present for the entire surgery and performed the surgery myself. Gas Well Pumper Awa Chadwick PA-C. My physician training assistant was a vital part of this case. They were important in appropriate retraction during the case, and protection of soft tissues during the procedure. Their intimate knowledge of the case and my steps aided in safe and expedient completion of the procedure as well as appropriate position of the patient during the surgery. They were also vital in assisting with closure under my direct supervision. Surgical Findings: See operative note Complications Complications: No
[2024-04-26] MEDS: Ketorolac 15 MG/ML Vial IV ×2 (15:01→22:14)
--- NOTE | 2024-04-26 15:25 | PCM.PN.HOSP ---
Reason for Visit Reason for Visit: Diagnoses Disease of spinal cord, unspecified (04/20/24) Conjunctival hemorrhage, unspecified eye (04/20/24) Other symptoms and signs involving the musculoskeletal system (04/20/24) Syncope and collapse (04/20/24) Maxillary fracture, unspecified side, initial encounter for closed fracture (04/20/24) Maxillary fracture, left side, initial encounter for closed fracture (04/20/24) Objective Data Objective Data Vital Signs: Vital Signs Temp Pulse Resp BP Pulse Ox O2 Del Method O2 Flow Rate 97.7 F L 59 L 16 105/52 L 98 Nasal Cannula 2 04/26/24 14:22 04/26/24 15:15 04/26/24 15:15 04/26/24 15:15 04/26/24 15:15 04/26/24 15:15 04/26/24 15:15 Oxygen Flow Rate (L/min) 2 Oxygen Delivery Method Nasal Cannula Weight: 166 lb 10.711 oz Body Mass Index (BMI) 25.3 Intake & Output: Intake and Output for Last 24 Hours 04/24/24 04/25/24 04/26/24 23:59 23:59 23:59 Intake Total 1640 / 1640 2085 / 2085 2240 / 2240 Output Total 350 / 350 1580 / 1580 600 / 600 Balance 1290 / 1290 505 / 505 1640 / 1640 Lab / Micro Data 04/26/24 05:58 04/26/24 05:58 Labs: Laboratory Results - last 24 hr 04/26/24 05:58: WBC 8.7, RBC 4.46 L, Hgb 13.3, Hct 38.8 L, MCV 87.0, MCH 29.8, MCHC 34.3, RDW Std Deviation 39.8, RDW Coeff of Delia 12.5, Plt Count 168, MPV 8.5, Immature Gran % (Auto) 0.700, Neut % (Auto) 62.4, Lymph % (Auto) 26.4, [place] % (Auto) 8.2, Eos % (Auto) 2.2, Baso % (Auto) 0.1, Absolute Neuts (auto) 5.4, Absolute Lymphs (auto) 2.30, Nucleated RBC % 0, Sodium 136, Potassium 4.5, Chloride 107, Carbon Dioxide 22.8, Anion Gap 6, BUN 20 H, Creatinine 0.83, Estim Creat Clear Calc 66.39, Est GFR (MDRD) Non-Af 87, BUN/Creatinine Ratio 23.4 H, Glucose 91, Calcium 8.2 Radiography Diagnostic Testing: Radiology Impression C-Arm Fluoroscopy 04/26/24 11:05 IMPRESSION: Intraoperative fluoroscopy performed for anterior cervical discectomy and fusion surgery. 10 fluoroscopic images were also obtained. Reading Location: [address] Cervical Spine X-Ray 04/26/24 11:05 IMPRESSION: Intraoperative fluoroscopy performed for anterior cervical discectomy and fusion surgery. 10 fluoroscopic images were also obtained. Reading Location: [address] Physical Exam Narrative Seen and examined Patient went for surgery today. Seen after the surgery in afternoon. Vitals normal. No respiratory distress. Patient admitted with syncopal episode. Has bruise around left maxillary region and around orbital region. Has chronic weakness of bilateral upper extremity worse than left upper extremity. Complain of numbness of both lower extremity from thigh downwards left worse than right. Physical exam General: Alert, Oriented x3, Cooperative HEENT: Atraumatic, PERRLA, EOMI, Normocephalic Oral: Oral mucosa Neck: Hard cervical collar around the neck Chest wall/Lungs: Air entry diminished in bilateral lung bases. No crepitation/rhonchi Cardiovascular: Regular rate, Regular Rhythm, Normal S1, Normal S2, No M/G/R Abdomen: Bowel Sounds Present, Soft, Non Tender, Non-Distended : No dysuria. No renal angle tenderness. No suprapubic tenderness. Extremities: No edema, Capillary Refill Less than 3 Seconds Skin: Lateral neck approach, surgical dressing soaked with serosanguineous fluid, expected from [place] drain. Subcutaneous bruise/ecchymosis over left orbital and maxillary region Musculoskeletal: LUE, abduction limited to only 30 degree. RUE limited to 60 degree. Power at knee and hip joints 4+/5 Neurological: Cranial nerves II-XII grossly intact, DTR 2+/4. No acute focal neurological deficit. Psych/Mental Status: Normal Affect, Appropriate. Assessment & Plan Assessment/Plan (1) Syncope: PLAN: The may have been vasovagal due to the vertigo related with the dizziness. Patient at actually more of a near syncopal episode where he just felt so dizzy hit his head. Patient has been dizzy for months. Pt was having milder symptoms, but worsened after he fell and hit his head. I suspect he made it worse with the head injury. Suspect BPPV. Dizziness much improved. Schedule meclizine for now. And as needed diazepam. 04/24 patient was dizzy and PT could not move him. Orthostatic blood pressure ordered. Discussed with the orthopedic surgeon. 04/25: Dizziness has resolved but now it is chronic only on standing up. Orthostatic vitals as documented. IV fluid started. Plan for surgery tomorrow. N.p.o. past midnight. (2) Maxillary fracture, left side, initial encounter for closed fracture: PLAN: Secondary to fall. Coservative mgmt. Dr. Godinez's input apprecriated. No blowing nose, nor sleeping on his left side. Dr. Godinez has no concerns about the patient going to surgery. Just no pressure on the left maxillary sinus. (3) Subconjunctival hemorrhage: PLAN: 2/2 to fall. Visual andrews intact, PERRL, EOMI. No hyphema. Supportive mgmt at this time. No optho needed at this time. (4) Left arm weakness: PLAN: ongoing for years (unable to flex right shoulder, but this seems to be due to rotator cuff injury/tear). MRI brain showed no CVA. 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 Acquired mild to severe multilevel foraminal narrowing. 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 And within the body is mentioned at C4-5 severe spinal stenosis with marked mass effect on the left cord. At C5-6 moderate spinal stenosis and severe right and moderate/severe left foraminal narrowing. C6-7 severe right and moderate left foraminal narrowing. Given the fact that this been ongoing for years is likely chronic. Will start steroids and consult spine surgery. DW Dr. Diego, tentative plan for patient to go to surgery on Wednesday. Patient now in agreement. 04/24: Surgery for today is canceled because of his scheduling/anesthesiology staffing problem. Patient also complained of mild urine retention. Started on Flomax. Bladder scan. 04/25: Patient had C3-C6 anterior cervical discectomy and fusion with plate instrumentation. PLAN: Plan VTE prophylaxis with SCDs Charges/Coding Visit Charges Inpatient E&M: 09774 Subs Hosp L2
--- NOTE | 2024-04-26 15:49 | POSTOPAN2_ITS ---
Anesthesia Postop Eval I Sum Postop Eval Completion status Anesthesia document: Postop Eval 1 completed: Yes Anesthesia Postop Eval I Summary Anesthesia Postop Eval I Summary: Anesthesia Postop Eval I: Assessment Summary Airway patent Yes 04/26/24 14:22 SENIOR SQL DATABASE [email or web address] Spontaneous unlabored Yes 04/26/24 14:22 SENIOR SQL DATABASE [email or web address] respirations Mental status nausea No 04/26/24 14:22 SENIOR SQL DATABASE [email or web address] Vomiting No 04/26/24 14:22 SENIOR SQL [email or web address] [email or web address] Anesthesia Postop Eval I: Fluid Summary Crystalloid volume administer 1,400 04/26/24 14:22 SENIOR SQL DATABASE [email or web address] (ml) Colloids volume administered ( ml) Blood Product volume administered (ml) Total IV fluid infused 1,400 04/26/24 14:22 SENIOR SQL [email or web address] [email or web address] Anesthesia Postop Eval I: Summary Notes Anesthesia Complication No 04/26/24 14:22 SENIOR SQL DATABASE [email or web address] Anesthesia Complication Comment: Post-operative progress note Anesthesia: Postop Eval II Evaluation Mental status: Awake and Calm Pain Level: 2 nausea: No Vomiting: No Complications Anesthesia Complication: No
--- NOTE | 2024-04-26 15:49 | PCM.POSTANE2 ---
Anesthesia Postop Eval I Sum Postop Eval Completion status Anesthesia document: Postop Eval 1 completed: Yes Anesthesia Postop Eval I Summary Anesthesia Postop Eval I Summary: Anesthesia Postop Eval I: Assessment Summary Airway patent Yes 04/26/24 14:22 STRATEGIC COMMUNICATIONS [email or web address] Spontaneous unlabored Yes 04/26/24 14:22 STRATEGIC COMMUNICATIONS [email or web address] respirations Mental status nausea No 04/26/24 14:22 STRATEGIC COMMUNICATIONS [email or web address] Vomiting No 04/26/24 14:22 STRATEGIC COMMUNICATIONS [email or web address] Anesthesia Postop Eval I: Fluid Summary Crystalloid volume administer 1,400 04/26/24 14:22 STRATEGIC COMMUNICATIONS [email or web address] (ml) Colloids volume administered ( ml) Blood Product volume administered (ml) Total IV fluid infused 1,400 04/26/24 14:22 STRATEGIC COMMUNICATIONS [email or web address] Anesthesia Postop Eval I: Summary Notes Anesthesia Complication No 04/26/24 14:22 STRATEGIC COMMUNICATIONS [email or web address] Anesthesia Complication Comment: Post-operative progress note Anesthesia: Postop Eval II Evaluation Mental status: Awake and Calm Pain Level: 2 nausea: No Vomiting: No Complications Anesthesia Complication: No
[2024-04-26] MEDS: Tamsulosin HCl 0.4 MG Capsule PO (17:10)
[2024-04-26] MEDS: Methocarbamol 500 MG Tablet 1000 MG PO ×2 (17:10→20:30)
[2024-04-26] MEDS: Lactated Ringers 1,000 ML 500 ML IV (17:51)
[2024-04-26] MEDS: Acetaminophen 325 MG Tablet 650 MG PO (18:57)
[2024-04-26 19:52] LABS: Hematocrit 37.7 % (40-54); Hemoglobin 12.8 g/dL (13.0-16.5)
[2024-04-26] MEDS: dexAMETHasone 4 MG/ML Vial IV (20:30)
[2024-04-26] MEDS: Senna/Docusate Sodium 1 Tablet 2 TABLET PO (20:30)
[2024-04-27 02:15] VITALS: BP 123/58; PULSE 66; RESP 17; TEMP 36.5; O2SAT 97
[2024-04-27] MEDS: Cefazolin 2 GM in Syringe 10 ML IV (02:40)
[2024-04-27] MEDS: 0.9% Saline Lock 10 ML Syringe IV ×3 (02:41→14:30)
[2024-04-27] MEDS: dexAMETHasone 4 MG/ML Vial IV ×2 (05:36→14:30)
[2024-04-27] MEDS: Meclizine HCl 25 MG Tablet PO ×2 (05:36→14:30)
[2024-04-27 06:03] LABS: Absolute Lymphocyte Count 1.59 X10^3/uL (0.83-4.51); Absolute Neutrophil Count 8.8 X10^3/uL (2.0-7.7); Basophil# 0.02 X10^3/uL; Basophil% 0.2 % (0-1); Hematocrit 37.9 % (40-54); Lymphocyte # 1.59 X10^3/ul (0.83-4.51); Lymphocyte % 14.3 % (19-41); Mean Corp Hgb Conc 34.3 g/dL (32-36); Mean Corpuscular Volume 87.5 fL (80-94); Mean Platelet Vol. 8.6 fl (6.2-12.0); Monocyte# 0.65 X10^3/uL; Monocyte% 5.8 % (0-10); NRBC Flagged by Analyzer 0 % (0-5); Neutrophil # 8.76 X10^3/uL (2.7-7.7); Neutrophil % 78.8 % (47-70); Platelet Count 178 K/mm3 (150-450); RBC Distribution Width CV 12.3 % (11.6-14.6); RBC Distribution Width SD 39.6 fl (35.1-43.9); Red Blood Count 4.33 M/mm3 (4.6-6.2); White Blood Count 11.1 K/mm3 (4.4-11.0)
[2024-04-27 06:59] LABS: Anion Gap 12 (5-15); BUN 19 mg/dL (4-19); BUN/Creat Ratio 21.3 RATIO (10-20); Calcium,Total 8.2 mg/dL (7.6-11.0); Carbon Dioxide 20.1 mmol/L (21.0-32.0); Chloride 103 mmol/L (98-108); Creatinine, Serum 0.91 mg/dL (0.70-1.20); EST Glomerular Filtration Rate 84 (>60); Estimated Creatinine Clearance 60.55 ml/min (50-250); Glucose 123 mg/dL (70-99); Potassium 4.6 mmol/L (3.3-5.1); Sodium Level 136 mmol/L (133-145)
--- NOTE | 2024-04-27 07:00 | RAD_ITS ---
PROCEDURE: Cervical spine radiographs, two views 04/27/2024 REASON FOR EXAM: Status post cervical spine fusion TECHNIQUE: AP and lateral radiographs of the cervical spine were obtained. COMPARISON: 03/08/2024 FINDINGS: Two views of the cervical spine were obtained. The bones are osteopenic. There has been interval placement of a metallic fixation plate at the anterior margin of C3-C6. There are interbody spacer devices at C3-4, C4-5, and C5-6. No acute fracture or focal subluxation of the cervical spine. Serpiginous tubular probable drainage catheter projects over the anterior left cervical soft tissues. There is similar moderate/severe degenerative disc disease at C6-7. Upper lungs are grossly clear. A metallic safety pin projects over the anterior cervical soft tissues. RAD/Cerv Spine 2 or 3 Views IMPRESSION: Osteopenia. Interval placement of a metallic fixation plate at the anterior ma rgin of C3-C6. Interval placement of interbody spacer devices at C3-4, C4-5, and C5-6. No acute bony abnormality of the cervical spine. Similar moderate/severe degen erative disc disease at C6-7. Reading Location: [facility]
[2024-04-27 08:15] VITALS: BP 134/72; PULSE 64; RESP 18; TEMP 36.4; O2SAT 95
--- NOTE | 2024-04-27 08:16 | PCM.PN.HOSP ---
Reason for Visit Reason for Visit: Diagnoses Disease of spinal cord, unspecified (04/20/24) Conjunctival hemorrhage, unspecified eye (04/20/24) Other symptoms and signs involving the musculoskeletal system (04/20/24) Syncope and collapse (04/20/24) Maxillary fracture, unspecified side, initial encounter for closed fracture (04/20/24) Maxillary fracture, left side, initial encounter for closed fracture (04/20/24) Objective Data Objective Data Vital Signs: Vital Signs Temp Pulse Resp BP Pulse Ox O2 Del Method O2 Flow Rate 97.7 F L 66 17 123/58 H 97 Room Air 3 04/27/24 02:15 04/27/24 02:15 04/27/24 02:15 04/27/24 02:15 04/27/24 02:15 04/27/24 07:47 04/26/24 18:24 Oxygen Flow Rate (L/min) 3 Oxygen Delivery Method Room Air Weight: 166 lb 10.711 oz Body Mass Index (BMI) 25.3 Intake & Output: Intake and Output for Last 24 Hours 04/25/24 04/26/24 04/27/24 23:59 23:59 23:59 Intake Total 2085 / 2085 3260 / 3260 Output Total 1580 / 1580 600 / 750 600 / 600 Balance 505 / 505 2660 / 2510 -580 / -580 Lab / Micro Data 04/27/24 05:35 04/27/24 05:35 Labs: Laboratory Results - last 24 hr 04/26/24 19:43: Hgb 12.8 L, Hct 37.7 L 04/27/24 05:35: WBC 11.1 H, RBC 4.33 L, Hgb 13.0, Hct 37.9 L, MCV 87.5, MCH 30.0, MCHC 34.3, RDW Std Deviation 39.6, RDW Coeff of Delia 12.3, Plt Count 178, MPV 8.6, Immature Gran % (Auto) 0.900, Neut % (Auto) 78.8 H, Lymph % (Auto) 14.3 L, [place] % (Auto) 5.8, Eos % (Auto) 0.0, Baso % (Auto) 0.2, Absolute Neuts (auto) 8.8 H, Absolute Lymphs (auto) 1.59, Nucleated RBC % 0, Sodium 136, Potassium 4.6, Chloride 103, Carbon Dioxide 20.1 L, Anion Gap 12, BUN 19, Creatinine 0.91, Estim Creat Clear Calc 60.55, Est GFR (MDRD) Non-Af 84, BUN/Creatinine Ratio 21.3 H, Glucose 123 H, Calcium 8.2 Radiography Diagnostic Testing: Radiology Impression C-Arm Fluoroscopy 04/26/24 11:05 IMPRESSION: Intraoperative fluoroscopy performed for anterior cervical discectomy and fusion surgery. 10 fluoroscopic images were also obtained. Reading Location: [address] Cervical Spine X-Ray 04/26/24 11:05 IMPRESSION: Intraoperative fluoroscopy performed for anterior cervical discectomy and fusion surgery. 10 fluoroscopic images were also obtained. Reading Location: [address] Cervical Spine X-Ray 04/27/24 07:00 IMPRESSION: Osteopenia. Interval placement of a metallic fixation plate at the anterior margin of C3-C6. Interval placement of interbody spacer devices at C3-4, C4-5, and C5-6. No acute bony abnormality of the cervical spine. Similar moderate/severe degenerative disc disease at C6-7. Reading Location: [facility] Physical Exam Narrative Seen and examined Vitals normal. No respiratory distress. Labs are good with normal hemoglobin Patient admitted with syncopal episode. Has bruise around left maxillary region and around orbital region. Has chronic weakness of bilateral upper extremity worse than left upper extremity. Complain of numbness of both lower extremity from thigh downwards left worse than right. Physical exam General: Alert, Oriented x3, Cooperative HEENT: Atraumatic, PERRLA, EOMI, Normocephalic Oral: Oral mucosa Neck: Hard cervical collar around the neck Chest wall/Lungs: Air entry diminished in bilateral lung bases. No crepitation/rhonchi Cardiovascular: Regular rate, Regular Rhythm, Normal S1, Normal S2, No M/G/R Abdomen: Bowel Sounds Present, Soft, Non Tender, Non-Distended : No dysuria. No renal angle tenderness. No suprapubic tenderness. Extremities: No edema, Capillary Refill Less than 3 Seconds Skin: Lateral neck approach, surgical dressing soaked with serosanguineous fluid, expected from Lackey drain. Subcutaneous bruise/ecchymosis over left orbital and maxillary region Musculoskeletal: LUE, abduction limited to only 30 degree. RUE limited to 60 degree. Power at knee and hip joints 4+/5 Neurological: Cranial nerves II-XII grossly intact, DTR 2+/4. No acute focal neurological deficit. Psych/Mental Status: Normal Affect, Appropriate. Assessment & Plan Assessment/Plan (1) Syncope: PLAN: The may have been vasovagal due to the vertigo related with the dizziness. Patient at actually more of a near syncopal episode where he just felt so dizzy hit his head. Patient has been dizzy for months. Pt was having milder symptoms, but worsened after he fell and hit his head. I suspect he made it worse with the head injury. Suspect BPPV. Dizziness much improved. Schedule meclizine for now. And as needed diazepam. 04/24 patient was dizzy and PT could not move him. Orthostatic blood pressure ordered. Discussed with the orthopedic surgeon. 04/25: Dizziness has resolved but now it is chronic only on standing up. Orthostatic vitals as documented. IV fluid started. Plan for surgery tomorrow. N.p.o. past midnight. (2) Maxillary fracture, left side, initial encounter for closed fracture: PLAN: Secondary to fall. Coservative mgmt. Dr. Godinez's input apprecriated. No blowing nose, nor sleeping on his left side. Dr. Godinez has no concerns about the patient going to surgery. Just no pressure on the left maxillary sinus. (3) Subconjunctival hemorrhage: PLAN: 2/2 to fall. Visual andrews intact, PERRL, EOMI. No hyphema. Supportive mgmt at this time. No optho needed at this time. (4) Left arm weakness: PLAN: ongoing for years (unable to flex right shoulder, but this seems to be due to rotator cuff injury/tear). MRI brain showed no CVA. 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 Acquired mild to severe multilevel foraminal narrowing. 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 And within the body is mentioned at C4-5 severe spinal stenosis with marked mass effect on the left cord. At C5-6 moderate spinal stenosis and severe right and moderate/severe left foraminal narrowing. C6-7 severe right and moderate left foraminal narrowing. Given the fact that this been ongoing for years is likely chronic. Will start steroids and consult spine surgery. DW Dr. Diego, tentative plan for patient to go to surgery on Wednesday. Patient now in agreement. 04/24: Surgery for today is canceled because of his scheduling/anesthesiology staffing problem. Patient also complained of mild urine retention. Started on Flomax. Bladder scan. 04/25: Patient had C3-C6 anterior cervical discectomy and fusion with plate instrumentation. PLAN: Plan VTE prophylaxis with SCDs
[2024-04-27] MEDS: Ensure Plus High Protein 120 ML LIQUID PO ×2 (09:13→11:13)
[2024-04-27] MEDS: Polyethylene Glycol 3350 17 GM PACKET PO (09:14)
[2024-04-27] MEDS: Methocarbamol 500 MG Tablet 1000 MG PO ×2 (09:15→14:30)
[2024-04-27] MEDS: Meloxicam 15 MG Tablet PO (09:15)
[2024-04-27] MEDS: Senna/Docusate Sodium 1 Tablet 2 TABLET PO (09:15)
--- NOTE | 2024-04-27 10:45 | DCINST_ITS ---
Discharge Instructions Diet Discharge Diet: Light diet - advance as tolerated (Soft, minced/bite sized for next 5 days) DC O2, CPAP, BIPAP needs Home O2 Discharge instructions: No Dressing / Incision Discharge Activity: Return to Normal Activity Weight Bearing Status: Weight bearing as tolerated Dressing / Incision Call your doctor if you observe: Fever of 101 or Higher, Coldness, Increased Pain, Numbness or Tingling, Change in Color, Inability to urinate, Inability to have a bowel movement, Shortness of breath, Dizziness, Fainting spells, Swelling in the ankles, Chest pain, Prolonged hiccupping, Increased palpitations (irregular heartbeat) and Calf discomfort Follow Up Care When: IN 2 WEEKS Test Results: Test results from this visit will be discussed in further detail at your follow- up appointment, if applicable. 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 Attending Provider: Harish Baxter Primary Care Provider: Kevin Menjivar Consulting Providers: Ciro Diego; Segundo Godinez; Keanu Alfred Discharge Orders/Prescriptions Prescriptions: New methocarbamol 500 mg Tablet 1,000 mg PO 4X/DAY Qty: 0 0RF acetaminophen 325 mg Tablet 650 mg PO Q6H PRN PRN (Reason: Pain 1-10 Or Fever >100.7) Qty: 0 0RF sennosides-docusate sodium [Stimulant Laxative Plus] 8.6-50 mg Tablet 2 tab PO BID Qty: 0 0RF midodrine 5 mg Tablet 10 mg PO TIDCM Qty: 0 0RF Rx Instructions: Hold for SBP less than 100 mmHg tamsulosin 0.4 mg Capsule 0.4 mg PO DAILY@1730 Qty: 0 0RF carboxymethylcellulose sodium [Refresh Tears] 0.5 % Drops 2 drp EACH EYE Q1H PRN (Reason: DRY EYES) Qty: 0 0RF meclizine 25 mg Tablet 12.5 mg PO TID PRN (Reason: dizziness) Qty: 0 0RF diazepam 2 mg Tablet 2 mg PO 4X/DAY PRN PRN (Reason: Vertigo) Qty: 0 0RF Rx Instructions: Hold for sedation/lethargy/hypotension, SBP less than 100 mmHg oxycodone 5 mg Tablet 2.5 - 5 mg PO Q4H PRN PRN (Reason: Pain Score 4-10) Qty: 0 0RF Rx Instructions: Oxycodone 2.5 mg for moderate pain and 5 mg for severe pain respectively. Sore Throat (benzocaine-menth) 15-3.6 mg Lozenge 1 juliet mucous membrane Q2H PRN PRN (Reason: SORE THROAT) Qty: 0 0RF Ensure Plus High Protein 0.08 gram-1.5 kcal/mL Liquid 120 ml PO TIDCM Qty: 0 0RF pantoprazole 20 mg tablet,delayed release (DR/EC) 20 mg PO DAILY Qty: 30 0RF meloxicam 15 mg Tablet 15 mg PO DAILY Qty: 0 0RF Rx Instructions: For 1 week Referrals / Follow Up: Ciro Diego MD [Med Staff - Active Staff] - Within 2 Weeks Kevin Menjivar MD [Primary Care Provider] - Disposition Disposition (needs filled in before D/C Order can be placed): Home, Self Care
[2024-04-27] MEDS: oxyCODONE 5 MG Tablet PO (11:13)
[2024-04-27] MEDS: Midodrine HCl 5 MG Tablet 10 MG PO (11:22)
--- NOTE | 2024-04-27 12:33 | CASEMGMT ---
Therapy notified SW that patient would be a great candidate for the Rehab Unit. SW spoke with patient and he was agreeable to Rehab instead of TCU. SW asked Faye to review patient for the Rehab Unit. Patient was accepted in the Rehab Unit when medically ready. SW notified patient. Plan: [facility] Acute Rehab Unit. Radha GRADY
--- NOTE | 2024-04-27 13:53 | DS.PCM_ITS ---
Providers Date of Admission: 04/20/24 Date of Discharge: 04/27/24 Primary Care Physician: Dr. Kevin Menjivar MD Consultations 04/19/24 15:02 Consult: Plastic Surgery Routine Consulting Provider: Segundo Godinez Reason for Consult: left maxilofacial fracture. EMERGENT Consult: No Notified: Yes Date Notified: 04/19/24 Time Notified: 13:21 Method of Notification: ED Physician Initiated 04/20/24 07:57 Consult: Orthopedics Routine Consulting Provider: Ciro Diego Reason for Consult: spinal stenosis with left arm weakness. EMERGENT Consult: No Notified: Yes Date Notified: 04/20/24 Time Notified: 09:41 Method of Notification: Text Reason For Visit: SYNCOPE Diagnosis Discharge Diagnosis (1) Syncope: Status: Acute Code(s): R55 - Syncope and collapse Plan: Patient admitted with syncopal episode and fall. Has bruise around left maxillary region and around orbital region. Has chronic weakness of bilateral upper extremity worse than left upper extremity. Complain of numbness of both lower extremity from thigh downwards left worse than right. The may have been vasovagal due to the vertigo related with the dizziness. Patient at actually more of a near syncopal episode where he just felt so dizzy hit his head. Patient has been dizzy for months. Pt was having milder symptoms, but worsened after he fell and hit his head. I suspect he made it worse with the head injury. Suspect BPPV. Dizziness much improved. Schedule meclizine for now. And as needed diazepam. 04/24 patient was dizzy and PT could not move him. Orthostatic blood pressure ordered. Discussed with the orthopedic surgeon. 04/25: Dizziness has resolved but now it is chronic only on standing up. Orthostatic vitals as documented. IV fluid started. Plan for surgery tomorrow. N.p.o. past midnight. 04/27: Patient not having any dizziness. His blood pressure was low yesterday therefore lactated Ringer was given 1 L over 2 hours. (2) Maxillary fracture, left side, initial encounter for closed fracture: Status: Acute Code(s): S02.40DA - Maxillary fracture, left side, initial encounter for closed fracture Plan: Secondary to fall. Coservative mgmt. Dr. Godinez's input apprecriated. No blowing nose, nor sleeping on his left side. Dr. Godinez has no concerns about the patient going to surgery. Just no pressure on the left maxillary sinus. (3) Subconjunctival hemorrhage: Status: Acute Code(s): H11.30 - Conjunctival hemorrhage, unspecified eye Plan: 2/2 to fall. Visual andrews intact, PERRL, EOMI. No hyphema. Supportive mgmt at this time. No optho needed at this time. (4) Left arm weakness: Status: Acute Code(s): R29.898 - Other symptoms and signs involving the musculoskeletal system Plan: ongoing for years (unable to flex right shoulder, but this seems to be due to rotator cuff injury/tear). MRI brain showed no CVA. 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 Acquired mild to severe multilevel foraminal narrowing. 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 And within the body is mentioned at C4-5 severe spinal stenosis with marked mass effect on the left cord. At C5-6 moderate spinal stenosis and severe right and moderate/severe left foraminal narrowing. C6-7 severe right and moderate left foraminal narrowing. Given the fact that this been ongoing for years is likely chronic. Will start steroids and consult spine surgery. DW Dr. Diego, tentative plan for patient to go to surgery on Wednesday. Patient now in agreement. 04/24: Surgery for today is canceled because of his scheduling/anesthesiology staffing problem. Patient also complained of mild urine retention. Started on Flomax. Bladder scan. 04/25: Patient had C3-C6 anterior cervical discectomy and fusion with plate instrumentation. 04/27: Dressing was soaked with serosanguineous fluid was changed in the morning. Has Reinaldo drain therefore expected drainage. H&H is stable, 13 g/38%. Discussed with Dr. Long. He is stable for discharge. Advised soft minced food for the next 5 days. Discharge medication reconciliation done. Discharge follow-up instructions completed. Discharge process discussed with the patient and all questions were answered to patient's satisfaction. Follow with PCP in 1 to 2 weeks Total time spent, exact 35 minutes on discharge meds reconciliation, examination, coordination of care with nurses and ancillary staff, review of imaging and blood test and discussion with the patient on follow-up instructions. Plan VTE prophylaxis with SCDs Medications at Discharge Home Medications acetaminophen 325 mg tablet 650 mg (2 x 325 mg) PO Q6H PRN PRN Pain 1-10 Or Fever >100.7 #0 tabs 04/27/24 benzocaine 15 mg-menthol 3.6 mg lozenges (Sore Throat (benzocaine with menthol)) 1 juliet mucous membrane Q2H PRN PRN SORE THROAT #0 ea 04/27/24 carboxymethylcellulose sodium 0.5 % eye drops (Refresh Tears) 2 drp EACH EYE Q1H PRN DRY EYES #0 mL 04/27/24 diazepam 2 mg tablet 2 mg PO 4X/DAY PRN PRN Vertigo #0 tabs 04/27/24 food supplemt, lactose-reduced 0.08 gram-1.5 kcal/mL oral liquid (Ensure Plus High Protein) 120 ml PO TIDCM #0 mL 04/27/24 meclizine 25 mg tablet 12.5 mg (1/2 x 25 mg) PO TID PRN dizziness #0 tabs 04/27/24 meloxicam 15 mg tablet 15 mg PO DAILY #0 tabs 04/27/24 methocarbamol 500 mg tablet 1,000 mg (2 x 500 mg) PO 4X/DAY #0 tabs 04/27/24 midodrine 5 mg tablet 10 mg (2 x 5 mg) PO TIDCM #0 tabs 04/27/24 oxycodone 5 mg tablet 2.5 - 5 mg (0.5 - 1 x 5 mg) PO Q4H PRN PRN Pain Score 4-10 #0 tabs 04/27/24 pantoprazole 20 mg tablet,delayed release 20 mg PO DAILY #30 tabs 04/27/24 sennosides 8.6 mg-docusate sodium 50 mg tablet (Stimulant Laxative Plus) 2 tab PO BID #0 tabs 04/27/24 tamsulosin 0.4 mg capsule 0.4 mg PO DAILY@1730 #0 caps 04/27/24 Physical Exam Narrative Seen and examined Dressing was soaked in the morning and was changed and dry when I saw the patient in afternoon. Blood pressure normal 134/72. Mild difficulty in swallowing therefore on soft bite-size food. Patient had IV dexamethasone preop and then 4 mg x 2 dosages no respiratory distress. Physical exam General: Alert, Oriented x3, Cooperative HEENT: Atraumatic, PERRLA, EOMI, Normocephalic Oral: Oral mucosa moist. Neck: Hard cervical collar around the neck Chest wall/Lungs: Air entry diminished in bilateral lung bases. No crepitation/rhonchi Cardiovascular: Regular rate, Regular Rhythm, Normal S1, Normal S2, No M/G/R Abdomen: Bowel Sounds Present, Soft, Non Tender, Non-Distended : No dysuria. No renal angle tenderness. No suprapubic tenderness. Extremities: No edema, Capillary Refill Less than 3 Seconds Skin: Lateral neck approach, surgical dressing surgical dressing was changed and is dry. Has Wisdom drain. Subcutaneous bruise/ecchymosis over left orbital and maxillary region Musculoskeletal: LUE, abduction limited to only 30 degree. RUE limited to 60 degree. Power at knee and hip joints 4+/5 Neurological: Cranial nerves II-XII grossly intact, DTR 2+/4. No acute focal neurological deficit. Psych/Mental Status: Normal Affect, Appropriate. Weight / BMI Weight Weight: 166 lb 10.711 oz Body Mass Index (BMI) 25.3 ABG / Lab / Microbiology Data 04/27/24 05:35 04/27/24 05:35 Laboratory: Laboratory Results - last 24 hr 04/26/24 19:43: Hgb 12.8 L, Hct 37.7 L 04/27/24 05:35: WBC 11.1 H, RBC 4.33 L, Hgb 13.0, Hct 37.9 L, MCV 87.5, MCH 30.0, MCHC 34.3, RDW Std Deviation 39.6, RDW Coeff of Delia 12.3, Plt Count 178, MPV 8.6, Immature Gran % (Auto) 0.900, Neut % (Auto) 78.8 H, Lymph % (Auto) 14.3 L, Payne % (Auto) 5.8, Eos % (Auto) 0.0, Baso % (Auto) 0.2, Absolute Neuts (auto) 8.8 H, Absolute Lymphs (auto) 1.59, Nucleated RBC % 0, Sodium 136, Potassium 4.6, Chloride 103, Carbon Dioxide 20.1 L, Anion Gap 12, BUN 19, Creatinine 0.91, Estim Creat Clear Calc 60.55, Est GFR (MDRD) Non-Af 84, BUN/Creatinine Ratio 21.3 H, Glucose 123 H, Calcium 8.2 Radiography Diagnostic Testing: Radiology Impression C-Arm Fluoroscopy 04/26/24 11:05 IMPRESSION: Intraoperative fluoroscopy performed for anterior cervical discectomy and fusion surgery. 10 fluoroscopic images were also obtained. Reading Location: [id number] Cervical Spine X-Ray 04/26/24 11:05 IMPRESSION: Intraoperative fluoroscopy performed for anterior cervical discectomy and fusion surgery. 10 fluoroscopic images were also obtained. Reading Location: [id number] Cervical Spine X-Ray 04/27/24 07:00 IMPRESSION: Osteopenia. Interval placement of a metallic fixation plate at the anterior margin of C3-C6. Interval placement of interbody spacer devices at C3-4, C4-5, and C5-6. No acute bony abnormality of the cervical spine. Similar moderate/severe degenerative disc disease at C6-7. [facility] Instructions Discharge Diet: Light diet - advance as tolerated (Soft, minced/bite sized for next 5 days) Weight Bearing Status: Weight bearing as tolerated Call your doctor if you observe: Fever of 101 or Higher, Coldness, Increased Pain, Numbness or Tingling, Change in Color, Inability to urinate, Inability to have a bowel movement, Shortness of breath, Dizziness, Fainting spells, Swelling in the ankles, Chest pain, Prolonged hiccupping, Increased palpitations (irregular heartbeat) and Calf discomfort DC O2, CPAP, BIPAP Needs Home O2 Discharge instructions: No When: IN 2 WEEKS Meaningful Use Info Meaningful Use Meaningful Use Diagnoses (Choose all that apply): None applicable Ischemic Stroke Statin Dosing Therapy Reference: STATIN DOSE THERAPY REFERENCE: * Patients > 75 years receive moderate or high dose statin therapy. * Patients 75 years or YOUNGER should receive HIGH intensity statin dose unless contraindicated. You will be required to document reason for non-treatment if statin daily dose does not meet guidelines. 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 Attending Provider: Harish Baxter Primary Care Provider: Kevin Menjivar Consulting Providers: Ciro Diego; Segundo Godinez; Keanu Alfred Discharge Orders/Prescriptions Prescriptions: New methocarbamol 500 mg Tablet 1,000 mg PO 4X/DAY Qty: 0 0RF acetaminophen 325 mg Tablet 650 mg PO Q6H PRN PRN (Reason: Pain 1-10 Or Fever >100.7) Qty: 0 0RF sennosides-docusate sodium [Stimulant Laxative Plus] 8.6-50 mg Tablet 2 tab PO BID Qty: 0 0RF midodrine 5 mg Tablet 10 mg PO TIDCM Qty: 0 0RF Rx Instructions: Hold for SBP less than 100 mmHg tamsulosin 0.4 mg Capsule 0.4 mg PO DAILY@1730 Qty: 0 0RF carboxymethylcellulose sodium [Refresh Tears] 0.5 % Drops 2 drp EACH EYE Q1H PRN (Reason: DRY EYES) Qty: 0 0RF meclizine 25 mg Tablet 12.5 mg PO TID PRN (Reason: dizziness) Qty: 0 0RF diazepam 2 mg Tablet 2 mg PO 4X/DAY PRN PRN (Reason: Vertigo) Qty: 0 0RF Rx Instructions: Hold for sedation/lethargy/hypotension, SBP less than 100 mmHg oxycodone 5 mg Tablet 2.5 - 5 mg PO Q4H PRN PRN (Reason: Pain Score 4-10) Qty: 0 0RF Rx Instructions: Oxycodone 2.5 mg for moderate pain and 5 mg for severe pain respectively. Sore Throat (benzocaine-menth) 15-3.6 mg Lozenge 1 juliet mucous membrane Q2H PRN PRN (Reason: SORE THROAT) Qty: 0 0RF Ensure Plus High Protein 0.08 gram-1.5 kcal/mL Liquid 120 ml PO TIDCM Qty: 0 0RF pantoprazole 20 mg tablet,delayed release (DR/EC) 20 mg PO DAILY Qty: 30 0RF meloxicam 15 mg Tablet 15 mg PO DAILY Qty: 0 0RF Rx Instructions: For 1 week Referrals / Follow Up: Ciro Diego MD [Med Staff - Active Staff] - Within 2 Weeks Kevin Menjivar MD [Primary Care Provider] - Disposition Disposition (needs filled in before D/C Order can be placed): Home, Self Care Charges/Coding Visit Charges Inpatient E&M: 38300 Disch Hosp >30min
--- NOTE | 2024-04-27 14:03 | CASEMGMT ---
Patient is ready for discharge to [facility] Acute Rehab Unit. AGAPITO notified patient. AGAPITO offered to call family and patient asked SW to call his ex- Naa. AGAPITO called Naa letting her know patient will be discharged to the hospital's Acute Rehab Unit. AGAPITO explained to Naa how to get there. Naa said she is on her way in to the hospital now. AGAPITO told Naa to go ahead and come to PCU as patient is still here. Naa thanked AGAPITO. AGAPITO notified patient that Naa was on her way in and AGAPITO left the information about Rehab visitation hours. Radha Zhou PU[employer] YSABEL
[2024-04-27 14:15] VITALS: BP 126/64; PULSE 65; RESP 18; TEMP 36.6; O2SAT 92
[2024-04-27 14:23] VITALS: BP 126/64; PULSE 65; RESP 18; TEMP 36.6; O2SAT 92
--- NOTE | 2024-04-27 14:45 | NURSING ---
Report called to nurse Sandra CAROLINA for pt to be d/c to Rehab unit.
== END 2024-04-27 14:57 | DRG 982 ==
LOC: ED 12:53 → PCU 13:03
PROVIDERS: Anesthesiology; Orthopaedic Surgery Orthopaedic Surgery of the Spine; Emergency Provider Emergency Medicine; PCP Family Medicine; Visit Provider Internal Medicine
PROC: 0RG20K0 Fusion of 2 or more Cervical Vertebral Joints with Nonautologous Tissue Substitute, Anterior Approach, Anterior Column, Open Approach (ICD-10-PCS; CPT 22551; principal; 2024-04-26 10:20)
DX: I95.1 Orthostatic hypotension (principal); M50.021 Cervical disc disorder at C4-C5 level with myelopathy; G95.89 Other specified diseases of spinal cord; M50.01 Cervical disc disorder with myelopathy, high cervical region; S02.40DA Maxillary fracture, left side, initial encounter for closed fracture; M50.022 Cervical disc disorder at C5-C6 level with myelopathy; F07.81 Postconcussional syndrome; G83.24 Monoplegia of upper limb affecting left nondominant side; I10 Essential (primary) hypertension; H81.10 Benign paroxysmal vertigo, unspecified ear; H11.32 Conjunctival hemorrhage, left eye; M48.02 Spinal stenosis, cervical region; S00.03XA Contusion of scalp, initial encounter; W18.2XXA Fall in (into) shower or empty bathtub, initial encounter; M25.512 Pain in left shoulder; M75.101 Unspecified rotator cuff tear or rupture of right shoulder, not specified as traumatic; R33.9 Retention of urine, unspecified; Y92.002 Bathroom of unspecified non-institutional (private) residence as the place of occurrence of the external cause; G89.29 Other chronic pain; Z87.891 Personal history of nicotine dependence
CPT/HCPCS: 36415; 70450; 70486; 70496; 70498; 70551; 71045; 72040; 72141; 76000; 80048; 82962; 84484; 85014; 85018; 85025; 85610; 85730; 93005; 93306; 97110; 97112; 97162; 97166; 97168; 97530; 97535; 99285; C1713; Q9967; A4216; J2405

== ENCOUNTER 2024-04-27 15:15 | Inpatient (IN) | payer MEDICARE, OTHER, SELFPAY ==
[2024-04-27 15:31] VITALS: BP 138/64; PULSE 62; RESP 16; TEMP 36.6; O2SAT 94; BMI 25.7
[2024-04-27] MEDS: Methocarbamol 500 MG Tablet 1000 MG PO ×2 (17:27→21:13)
[2024-04-27] MEDS: Tamsulosin HCl 0.4 MG Capsule PO (17:27)
[2024-04-27] MEDS: Bisacodyl 5 MG Tablet 10 MG PO (17:27)
[2024-04-27] MEDS: Ensure Plus High Protein 120 ML LIQUID PO (17:28)
--- NOTE | 2024-04-27 19:39 | PN.ORTHO_ITS ---
Subjective Subjective Seen with Dr. Diego. Patient is post op day 1 C3-6 ACDF. He is doing well post operatively with pain well managed. Patient had not yet been up with therapy upon my visit. Continues to have left sided weakness. Nursing did change dressing x1. Does mention that he continues to have dysphagia issues. Objective Data Objective Data Vital Signs: Vital Signs Temp Pulse Resp BP Pulse Ox O2 Del Method 97.8 F 62 16 138/64 H 94 Room Air 04/27/24 15:31 04/27/24 15:31 04/27/24 15:31 04/27/24 15:31 04/27/24 15:31 04/27/24 16:48 Oxygen Delivery Method Room Air Weight: 170 lb 1.6 oz Body Mass Index (BMI) 25.7 Intake & Output: Intake and Output for Last 24 Hours 04/25/24 04/26/24 04/27/24 23:59 23:59 23:59 Intake Total 100 / 100 Balance 100 / 100 Physical Exam Narrative Dressing showed mild amount of drainage. Collar removed for exam and drain was removed. New dressing and tegaderm was applied. Cervical collar was reapplied. 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 Right upper extremity shows 5 x 5 strength except for grade 4 shoulder abduction. Const alert, oriented x3 and no apparent distress Assessment & Plan Assessment/Plan (1) Status post cervical spinal fusion: PLAN: Plan POD 1 C3-6 ACDF. Xrays done today show hardware and bone graft in good position. Patient to be transferred to TCU for therapy. If still in TCU at 2 weeks post op, follow up can be done there. If patient is home, he can follow up in the clinic. Patient is in agreement.
[2024-04-27] MEDS: Magnesium Hydroxide 30 ML UDC PO (21:13)
[2024-04-27] MEDS: Senna/Docusate Sodium 1 Tablet 2 TABLET PO (21:13)
[2024-04-27] MEDS: 0.9% Saline Lock 10 ML Syringe IV (21:14)
[2024-04-27 22:00] VITALS: RESP 16
[2024-04-27 22:13] LABS: Bacteria 0 SEEN /hpf (None Seen); Squamous Epithelial Cells - UA 0 SEEN /hpf (0-5)
[2024-04-27 22:49] LABS: Color, Urine Straw (Yellow); Glucose, Dipstick Normal (Normal); Ketone-Dipstick Negative (Negative); Leukocyte Esterase-Dipstick Negative /ul (Negative); Nitrite-Dipstick Negative (Negative); Occult Blood-Urine Negative /ul (Negative); Protein-Dipstick 15 mg/dl (Negative); Urine Bilirubin Dipstick Negative (Negative); Urine Clarity Clear (Clear); Urine Urobilinogen 1 mg/dl (Normal)
[2024-04-28 00:21] LABS: Mucous, Urine 1+ /hpf (<or=2+); Red Blood Cells-Urine 0 SEEN /hpf (0-5); White Blood Cells 0-5 SEEN /hpf (0-5)
[2024-04-28 05:43] VITALS: BP 128/64; BP 137/62; PULSE 61; PULSE 63
[2024-04-28 06:00] VITALS: BP 128/64; PULSE 63; RESP 16; TEMP 36.7; O2SAT 93
[2024-04-28 06:06] LABS: Hematocrit 35.3 % (40-54); Hemoglobin 12.4 g/dL (13.0-16.5); Mean Corp Hgb Conc 35.1 g/dL (32-36); Mean Corpuscular Hgb 30.6 pg (27.0-32.0); Mean Corpuscular Volume 87.2 fL (80-94); Mean Platelet Vol. 8.8 fl (6.2-12.0); Platelet Count 164 K/mm3 (150-450); RBC Distribution Width CV 12.7 % (11.6-14.6); RBC Distribution Width SD 40.3 fl (35.1-43.9); Red Blood Count 4.05 M/mm3 (4.6-6.2); White Blood Count 11.3 K/mm3 (4.4-11.0)
[2024-04-28 06:30] LABS: Anion Gap 8 (5-15); BUN 27 mg/dL (4-19); BUN/Creat Ratio 30.3 RATIO (10-20); Carbon Dioxide 22.8 mmol/L (21.0-32.0); Chloride 106 mmol/L (98-108); Creatinine, Serum 0.89 mg/dL (0.70-1.20); EST Glomerular Filtration Rate 86 (>60); Estimated Creatinine Clearance 61.91 ml/min (50-250); Glucose 91 mg/dL (70-99); Magnesium 2.6 mg/dL (1.5-2.2); Phosphorus 2.4 mg/dL (2.7-4.5); Potassium 4.6 mmol/L (3.3-5.1); Sodium Level 137 mmol/L (133-145)
[2024-04-28] MEDS: Polyethylene Glycol 3350 17 GM PACKET PO (08:22)
[2024-04-28] MEDS: Senna/Docusate Sodium 1 Tablet 2 TABLET PO ×2 (08:22→21:33)
[2024-04-28] MEDS: Methocarbamol 500 MG Tablet 1000 MG PO ×4 (08:22→21:33)
[2024-04-28] MEDS: Meloxicam 15 MG Tablet PO (08:22)
[2024-04-28] MEDS: Midodrine HCl 5 MG Tablet 10 MG PO ×3 (08:22→17:23)
[2024-04-28] MEDS: Pantoprazole Sodium 20 MG Tablet PO (08:22)
--- NOTE | 2024-04-28 10:15 | PCM.HP.STD ---
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 HPI Narrative YAS ROSA, is a 83 YO M with a past medical history of irritable bowel syndrome with alternating diarrhea and constipation, colonic angioectasias, GERD with reflux esophagitis, anxiety/depression, remote tobacco dependence (quit in 1968), alcohol abuse , ventral hernia, presbycusis and progressive weakness, numbness and loss of function of the LUE over the past 2 years. Also has had numbness and incoordination with the R hand over the past several months. He lives alone and has had several falls over the past 6 months. He complains of Lightheadedness (when he is up and moving) and near syncope over at least the past 6 months. Lightheadedness improves when he is seated and not moving. He denies any vertigo. He presented to the ED at [facility] on 04/19/24 after having a fall in the BR at home. When EMS arrived he was lying beside the couch and was alert oriented x 3. He told EMS that he became lightheaded and sat down on the edge of the tub. He can not recall what happened after he sat down on the edge of the tub. At presentation to the ED he had weakness of the L arm, an occipital scalp hematoma and bruising/hematoma of the left face. He denied TORRES but, he complained of neck pain. He had a fall a few weeks prior and broke his nose. A NC CTB was obtained. It did not show any acute findings other than a Left maxillary fx and fluid in the Left maxillary sinus. CTA head and neck showed no significant areas of stenosis and no more than special occlusion. No aneurysms or large vascular malformations. MRI was ordered and showed no acute intracranial abnormality, specifically no evidence of acute ischemia. MRI of the cervical spine showed acquired multilevel spinal stenosis, severe at C3-C4 and C4-C5. There was mild to severe multilevel foraminal narrowing. There was myelomalacia at the level of C4 and C5 likely related to severe spinal canal stenosis. He was seen in consultation by Dr. Madi Diego who recommended C3-6 ACDF in hopes of halting the progression of myelopathy. Dr. Diego noted that the patient had preoperative baseline dysphagia. He was taken to surgery by Dr. Long on 04/26/2024 for C3-6 anterior cervical decompression/discectomy and fusion. Post operatively dysphagia increased. He has also experienced increased weakness in the RUE and his legs. He c/o tingling in the thighs anteriorly. He was evaluated by PT/OT/ST and transfer to acute inpt rehab was recommended. Afebrile VSS - Maintaining appropriate oxygen saturation on RA Oral intake - FOOD oral intake has been poor FLUIDS poor Discussed with nursing -he is retaining urine. Bladder scan postvoid was 359 and he had a straight catheterization done with 380 cc return. Post cath bladder scan was 0. Has been incontinent of urine. Reviewed the THERAPY notes Medication list reviewed. All lab from today was personally reviewed. Hemoglobin is 12.4. Hemoglobin at presentation to the emergency room was 16, more likely than not falsely elevated secondary to severe dehydration. White blood cell count is mildly elevated at 11.3. Platelets are within normal limits. Sodium is 137 and the potassium is 4.6. BUN is 27 which is up from 19 just yesterday. Creatinine is 0.89 which is stable and within his baseline. BUN/creatinine ratio is very elevated at 30.3. Phosphorus is low at 2.4 and the magnesium is 2.6. UA done on 04/27/2024 shows no bacteria and 0-5 white blood cells. Leukocyte esterase is negative and nitrite is negative. I reviewed a note from the ER physician on 09/15/2020 and at that time he was on Prozac 20 mg daily. Squad report and ER doc notes from presentation to the ED on 04/19/24 list no medications. Pt tells me that he does not like to take medications. He was taking no prescribed meds at presentation to the emergency department. [facility] Medical History (Updated 04/28/24 @ 15:[address] Corazon Wright, DO) Angiectasia of large intestine History of gastric polyp GERD with esophagitis Postural dizziness with near syncope Bilateral arm weakness Osteoarthritis Anxiety and depression Ventral hernia Loss of hearing Wears glasses Wears dentures Alcohol use History of IBS Heartburn Former smoker History of stress test Home Medications ?Medication ?Instructions ?Recorded ?Last Taken ?Type acetaminophen 325 mg tablet 650 mg (2 x 325 mg) PO Q6H PRN PRN 04/27/24 Unknown Rx Pain 1-10 Or Fever >100.7 #0 tabs benzocaine 15 mg-menthol 3.6 mg 1 juliet mucous membrane Q2H PRN PRN 04/27/24 Unknown Rx lozenges (Sore Throat (benzocaine SORE THROAT #0 ea with menthol)) carboxymethylcellulose sodium 0.5 2 drp EACH EYE Q1H PRN DRY EYES #0 04/27/24 Unknown Rx % eye drops (Refresh Tears) mL diazepam 2 mg tablet 2 mg PO 4X/DAY PRN PRN Vertigo #0 04/27/24 Unknown Rx tabs food supplemt, lactose-reduced 120 ml PO TIDCM supplement #0 mL 04/27/24 Unknown Rx 0.08 gram-1.5 kcal/mL oral liquid (Ensure Plus High Protein) meclizine 25 mg tablet 12.5 mg (1/2 x 25 mg) PO TID PRN 04/27/24 Unknown Rx dizziness #0 tabs meloxicam 15 mg tablet 15 mg PO DAILY antiinflammatory #0 04/27/24 04/27/24 Rx tabs methocarbamol 500 mg tablet 1,000 mg (2 x 500 mg) PO 4X/DAY 04/27/24 Unknown Rx muscle relaxer #0 tabs midodrine 5 mg tablet 10 mg (2 x 5 mg) PO TIDCM 04/27/24 Unknown Rx hypotension #0 tabs oxycodone 5 mg tablet 2.5 - 5 mg (0.5 - 1 x 5 mg) PO Q4H 04/27/24 Unknown Rx PRN PRN Pain Score 4-10 #0 tabs pantoprazole 20 mg tablet,delayed 20 mg PO DAILY reflux #30 tabs 04/27/24 Unknown Rx release sennosides 8.6 mg-docusate sodium 2 tab PO BID laxative #0 tabs 04/27/24 Unknown Rx 50 mg tablet (Stimulant Laxative Plus) tamsulosin 0.4 mg capsule 0.4 mg PO DAILY@1730 prostate 04/27/24 Unknown Rx health #0 caps Allergy/AdvReac Type Severity Reaction Status Date / Time No Known Allergies Allergy Verified 04/27/24 15:41 Family History (Updated 04/28/24 @ 11:[address] Corazon Wright, DO) Father , at 40 YOA of an SC Heart disease Other Hypertension Surgical History (Updated 04/28/24 @ 11:[address] Corazon Wright DO) Status post cervical spinal fusion History of esophagogastroduodenoscopy (EGD) Hx of colonoscopy History of tonsillectomy and adenoidectomy History of appendectomy Social History (Updated 04/28/24 @ 12:[address] Corazon Wright DO) household members: none and other details: He is . Ex is Nan and she still is in contact. housing: apartment number of children: 2 Smoking Status: Former smoker quit date: 02/09/68 how long ago did patient quit smokin years alcohol intake: current alcohol intake frequency: holidays/special occasions only details: Tells me that he never drinks now. Tells me he drank too much in past. substance use type: does not use ROS Constitutional Constitutional: Reports anorexia, change in weight, frequent falls, malaise and weight loss; Denies chills, daytime sleepiness, difficulty sleeping, fatigue, fever(s), headache(s), night sweats or weakness Eyes Eyes: Denies blurry vision, change in vision, discharge from eye(s), double vision, eye pain or loss of vision ENT HEENT: Reports dysphagia, hoarseness and sore throat; Denies abnormal hearing, headache(s), hearing loss, mouth pain or nasal congestion Cardiovascular Cardiovascular: Reports dizziness, lightheadedness, numbness in extremities, orthostatic symptoms, periorbital swelling and weakness in extremities; Denies chest pain, dyspnea on exertion, edema, orthopnea, palpitations, paroxysmal nocturnal dyspnea, pedal edema or syncope Respiratory/Chest Respiratory/Chest: Denies chest tightness, cough, dyspnea, restlessness, shortness of breath at rest, shortness of breath with exertion or wheezing Gastrointestinal Gastrointestinal: Reports constipation and other Details: Had not had a BM in 8 days......had a BM last night after Dulcolax 10 mg PO. Has been having problems with constipation at home at times. ; Denies abdominal pain, diarrhea, dyspepsia, hematemesis, hematochezia, nausea or vomiting Genitourinary Genitourinary: Reports change in urinary stream, difficulty urinating, dribbling, post void dribbling, urinary hesitancy, urinary incontinence and urinary urgency; Denies burning urination, dysuria, flank pain, hematuria, low back pain, nocturia, penile discharge, scrotal pain or urinary frequency Musculoskeletal Musculoskeletal: Reports atrophy, difficulty walking, muscle weakness, neck pain and tingling; Denies back pain, joint pain, joint swelling or tremors Integumentary Integumentary: Reports alopecia, dry skin and other Details: Incision left anterior neck secondary to recent laminectomy/fusion ; Denies jaundice, pruritus or rash Neurologic Neurologic: Reports disequilibrium, dizziness, focal weakness, frequent falls, paresthesias, sensory deficit, weakness and other Details: Near syncope ; Denies confusion, headache(s), seizures, syncope, tremor(s) or vertigo Psychiatric Psychiatric: Reports cognitive impairment, depression and other Details: Since he hit his head in recent fall he has had fuzzy thinking. ; Denies anxiety, homicidal ideation, irritability, suicidal ideation, suicidal thoughts or visual hallucinations Endocrine Endocrinology: Reports other Details: ex tells him taht he is looking skinny ; Denies change in body appearance, polydipsia or polyuria Hematologic/Lymphatic Hematologic/Lymphatic: Reports easy bruising; Denies easy bleeding or lymphadenopathy Allergic/Immunologic Allergic/Immunologic: Denies rhinitis, eczemia or asthma Vital Signs Vital Signs Vital Signs: 04/27/24 15:31 04/27/24 16:48 04/27/24 22:00 Temperature 97.8 F Temperature Source Oral Pulse Rate 62 Pulse Rate [Lying] Pulse Rate [Sitting (for 1 minute prior to obtaining)] Respiratory Rate 16 16 Respiratory Effort Normal Non-Labored Normal Non-Labored Respiratory Depth Normal Normal Respiratory Pattern Normal Normal Blood Pressure 138/64 H Blood Pressure [Lying] Blood Pressure [Sitting (for 1 minute prior to obtaining)] Blood Pressure Mean 88 Blood Pressure Mean [Lying] Blood Pressure Mean [Sitting (for 1 minute prior to obtaining)] Blood Pressure Source Monitor Blood Pressure Position Semi-Fowlers Blood Pressure Location Left Arm Pulse Ox 94 Oxygen Delivery Method Room Air Room Air Room Air 04/28/24 05:43 04/28/24 06:00 04/28/24 08:34 Temperature 98.1 F Temperature Source Oral Pulse Rate 63 Pulse Rate [Lying] 63 Pulse Rate [Sitting (for 1 minute prior to obtaining)] 61 Respiratory Rate 16 Respiratory Effort Normal Non-Labored Respiratory Depth Normal Respiratory Pattern Normal Blood Pressure 128/64 H Blood Pressure [Lying] 137/62 H Blood Pressure [Sitting (for 1 minute prior to obtaining)] 128/64 H Blood Pressure Mean 85 Blood Pressure Mean [Lying] 87 Blood Pressure Mean [Sitting (for 1 minute prior to obtaining)] 85 Blood Pressure Source Monitor Blood Pressure Position Semi-Fowlers Blood Pressure Location Left Arm Pulse Ox 93 Oxygen Delivery Method Room Air Room Air Weight Weight: 170 lb 1.6 oz Body Mass Index (BMI) 25.7 Physical Exam Const alert, oriented x3 and no apparent distress Constitutional Narrative: Sitting in the recliner at the bedside. Pleasant and forthcoming. General Appearance: cooperative and well kempt HEENT HEENT Narrative: Periorbital ecchymosis on the Left side and also has ecchymosis of the left face at the jawline. Conjunctiva is clear today. Mucous membranes are very dry. No thrush. The tongue protrudes on the midline. Eyes PERRL, EOMs intact bilaterally, conjunctivae normal and no scleral icterus Eyes Narrative: No discharge from the eyes and no mattering of the eyelashes. Direct Ophthalmoscopy: normal light reflex Neck Neck Narrative: He is in a rigid cervical collar. Chest Chest: symmetrical chest wall rise Resp normal respiratory effort, normal air movement and clear to auscultation bilaterally Effort and Inspection: able to speak in complete sentences; Negative for abnormal respiratory pattern, tachypneic, pursed lip breathing or labored Cardio regular rate, regular rhythm, S1 normal heart sound, S2 normal heart sound, no murmurs, no rub and no gallops Cardio Narrative: No ectopy GI normal to inspection, nondistended, normoactive bowel sounds, soft to palpation, non-tender and no bruits GI Narrative: No guarding with palpation. Positive ventral hernia. no CVA tenderness Extremity no calf tenderness and no pedal edema General Extremity: Negative for clubbing or cyanosis Skin Skin Narrative: Left anterior cervical incision secondary to recent discectomy and fusion C3-C6. General Skin Exam: no breakdown Rashes: no rashes Neuro oriented x3 and CN's II-XII intact bilaterally Neuro Narrative: No movement against gravity LUE. + muscle atrophy. Left should is subluxed due to muscle atrophy. 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 R arm falls immediately to the bed when I lift it up. He has some tone in the R triceps, biceps and brachioradialis muscle. Has shoulder shrug BL which is about even. NO tremors. R boat driver is weak and heb is R hand dominant. He can lift both legs off the bed and hold for 5 sec. Good plantar flexion and dorsiflexion with both feet. PERRLA. No faciall droop. No nystagmus. Tracks well and did not have vertigo Psych mental status grossly normal, thought process normal and cooperative Psych Narrative: depressed affect. Not suicidal......his quaker ([employer]) feels this is a sin and you will not get into heaven per patient. Has been losing wt and appetite has been decreased. Some difficulty speaking. Not motivated to take care of himself and has had Weakness in the LUE for 2 years without seeing anyone for this. Lives alone. Does not appear anxious. Makes good eye contact with me. He is engaged in what we are telling him. Not restless or fidgety. Appearance: grossly normal, appropriate and well kempt Attitude: calm, engaged, No evasive and No agitated Activity / Motor Behavior: appropriate eye contact and other Has some psychomotor slowing.......due to depression? Tells me that this has become apparent to him since the fall recently.....has had several falls over the past 6 months. ; Negative for psychomotor agitation Speech: normal speech Results Lab / Micro Data 04/28/24 05:53 04/28/24 05:53 Labs: Laboratory Results - last 24 hr 04/27/24 22:05: Urine Color Straw, Urine Clarity Clear, Urine pH 5.0, Ur Specific [place] 1.020, Urine Protein 15 H, Urine Glucose (UA) Normal, Urine Ketones Negative, Urine Occult Blood Negative, Urine Nitrite Negative, Urine Bilirubin Negative, Urine Urobilinogen 1 H, Ur Leukocyte Esterase Negative, Urine RBC 0 SEEN, Urine WBC 0-5 SEEN, Ur Squamous Epith Cells 0 SEEN, Urine Bacteria 0 SEEN, Urine Mucus 1+ 04/28/24 05:53: WBC 11.3 H, RBC 4.05 L, Hgb 12.4 L, Hct 35.3 L, MCV 87.2, MCH 30.6, MCHC 35.1, RDW Std Deviation 40.3, RDW Coeff of Delia 12.7, Plt Count 164, MPV 8.8, Sodium 137, Potassium 4.6, Chloride 106, Carbon Dioxide 22.8, Anion Gap 8, BUN 27 H, Creatinine 0.89, Estim Creat Clear Calc 61.91, Est GFR (MDRD) Non-Af 86, BUN/Creatinine Ratio 30.3 H, Glucose 91, Calcium 8.0, Phosphorus 2.4 L, Magnesium 2.6 H Assessment & Plan Assessment/Plan (1) Debility: (2) Fall: QUALIFIERS: Encounter type: subsequent encounter Qualified Code(s): W19.XXXD - Unspecified fall, subsequent encounter (3) Cervical stenosis of spinal canal: (4) Foraminal stenosis of cervical region: (5) Cervical cord myelomalacia: (6) Cervical myelopathy: (7) Status post cervical spinal fusion: PLAN: Anterior cervical discectomy/decompression and fusion by Dr. Madi Diego on 04/26/2024. (8) Acute blood loss as cause of postoperative anemia: (9) Traumatic brain injury with loss of consciousness: QUALIFIERS: Encounter type: subsequent encounter Qualified Code(s): S06.9X9D - Unspecified intracranial injury with loss of consciousness of unspecified duration, subsequent encounter PLAN: suspected (10) Left maxillary fracture: (11) Dysphagia: (12) Bilateral arm weakness: PLAN: L>>R. Also with paresthesias in both UE's (13) Postural dizziness with near syncope: (14) Severe dehydration: (15) Orthostatic hypotension: (16) Urine retention: (17) Urinary hesitancy: (18) Urinary incontinence: QUALIFIERS: Urinary Incontinence type: unspecified incontinence Qualified Code(s): R32 - Unspecified urinary incontinence (19) BPH (benign prostatic hyperplasia): (20) GERD with esophagitis: QUALIFIERS: Esophagitis bleeding: without hemorrhage Qualified Code(s): K21.00 - Gastro-esophageal reflux disease with esophagitis, without bleeding (21) History of IBS: (22) Anxiety and depression: (23) Chronic left shoulder pain: (24) Ventral hernia: QUALIFIERS: Obstruction and gangrene presence: without obstruction or gangrene Qualified Code(s): K43.9 - Ventral hernia without obstruction or gangrene PLAN: Plan PLAN PT for gait stability OT for ADL's ST for evaluation for swallowing -suspect recurrent laryngeal nerve dysfunction Analgesics as needed-scheduled Tylenol 1 g p.o. every 8 hours and continue oxycodone every 4 hours as needed for the pain 4-10 Bowel protocol Fall precautions Assess for Anxiety/Depression GI prophylaxis -continue Protonix DVT prophylaxis with -will discuss with surgery. For now we will use JESSICAs and YESSICA rogel Follow up with [] following DC from IP Rehab AM lab including CMP, CBC, Mag and Phos TSH, baseline cortisol, PSA.....consider a Cortrosyn stim test in the AM. Normal saline 1 L over 1 hour and then decrease the rate to 100 cc/h Hold Flomax for now due to severe orthostasis Recheck orthostatics in the a.m. Discontinue Ativan and meclizine-he does not have vertigo he has near syncope/lightheadedness secondary to orthostasis Discontinue meloxicam due to interference with fusion. consider weaning Robaxin in the next few days. Discuss pharmacologic DVT prophylaxis with Dr. Diego. Obtain Dr. Menjivar's records. Pt is depressed and Dr. Menjivar had started a anti-depressant but, it gave him diarrhea and it was stopped. Would like to know what drug he was given for depression. I believe the drug was Prozac.....this was documented in a ED visit 09/15/20. Pt attributes diarrhea to Prozac but, he has been diagnosed with IBS D in the past and he also has constipation at times........I suspect the Prozac has nothing to do with diarrhea. BP sitting up with legs dependent was recently 79/48 and he did get Midodrine this AM. Will continue Midodrine and hydrate aggressively. 85 Minutes spent reviewing past diagnostic tests, lab results, vital sign trends, medical history, medications, all additional paperwork sent by the previous hospital, and ordering medications, examining the the patient and completing documentation. Charges/Coding Visit Charges Inpatient E&M: 47177 Init Hosp L3
[2024-04-28 10:32] VITALS: BP 88/51; PULSE 60; RESP 18; TEMP 36.6; O2SAT 94
[2024-04-28 10:33] VITALS: BP 79/48; PULSE 58; RESP 18; TEMP 36.6; O2SAT 93
[2024-04-28] MEDS: 0.9% Normal Saline (1000mL) 1,000 ML 999 ML IV (11:29)
[2024-04-28] MEDS: Ensure Plus High Protein 120 ML LIQUID PO ×2 (12:04→17:23)
--- NOTE | 2024-04-28 12:04 | NURSING ---
Fax sent to Dr. Ramesh's office to obtain medical records requested.
[2024-04-28] MEDS: 0.9% Normal Saline (1000mL) 1,000 ML 100 ML IV (12:38)
[2024-04-28 12:40] LABS: PSA,Total - Annual Screen 0.33 ng/mL (0.02-4.00)
--- NOTE | 2024-04-28 12:41 | PCM.RU.PYE ---
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 Potential Problem List:: DVT, Bleeding, Infection, UTI, Aspiration, Falls, Skin Integrity and Depression Risk of Complications DVT: YESSICA Hose and Sequential Compression Device Bleeding: Monitor Lab Values, Nursing to Teach Precautions for anti-coagulation therapy., Wound, if applicable, to be assessed every shift. and Stroke patients assessed for lethargy or change in status. Infection: Clinical Staff to Monitor for S/S of infection: and S/S of infection include fever, redness, warmth, etc. Urinary Tract Infection: Monitor for frequency, burning, discomfort, or incontinence. and Nursing will obtain urine sample for urinalysis and C&S when ordered. Aspiration: Clinical staff will monitor for coughing, drooling, congestion., Speech will evaluate swallowing and dsyphasia. and Nursing will monitor patient swallowing during meals. Falls: Patient will be evaluated for Fall Precautions and Patient will be placed on Fall Precautions as indicated per protocol. Skin Breakdown: Nursing will assess skin daily using assessment tool. and Nursing will place on Skin Breakdown Precautions as indicated. Pain: Clinical staff will assess patient's pain level per protocol., Medications will be given, if needed, and the pain level reassessed. and Other methods: Massage, distraction, decrease stimulus, etc. used PRN. Plan of Care Patient requires physician specializing in physical medicine and rehab oversight to provide close medical supervision of rehab issues including: Pain Management, Sleep Problems, Bowel and Bladder, Medical and co-morbidity Management, DVT prophylaxis, Rehabilitation Leadership and Coordination of treatment team Patient needs Physical Therapy: For a minimum of 1 hour and At least 5 out of 7 days Patient needs Physical Therapy to improve:: Mobility, Strengthening, Transfers, Stretching, ROM, Endurance, Stairs, Gait and Balance Patient needs Occupational Therapy: For a minimum of 1 hour and At least 5 out of 7 days Patient needs Occupational Therapy to improve ADL's incl.: Eating, Grooming, Bathing, Dressing, Toileting, Toilet transfers, Community Reintegration, Higher functioning activities, Household tasks, Adaptive Equipment, Splinting and Other activities as determined Patient requires speech therapy: For a minimum of 1 hour and At least 5 out of 7 days Patient requires speech therapy for: Swallowing, Cognition, Language Skills and Compensatory Strategies Patient requires 24/ Rehabilitation Nursing for: Pain Issues, Identifying and preventing risk factors, Monitoring and reporting current medical conditions, Assisting with ambulation, transfer, and all ADL's, Teaching patients about disease process and medications, Family teaching, Providing safe environment, Bowel and Bladder Issues, Skin integrity and Medication Management Patient needs Manufacturing Sr Engineer/ Case Management for: Discharge Planning, Arranging Home Equipment or Services and Family Interventions Patient needs Dietary and Nutrition Services for: Adequate Nutrition, Nutritional Supplements and Nutritional Education Goals Goals Patient will remain: free from falls Patient will perform eating at: - (min assist to MOD I) Patient will perform bed mobility at: MOD I level of assist. Patient will complete transfers from bed to chair at: - (Contact-guard assist) Patient will ambulate: - (165 feet with least restrictive device on various surfaces) Patient will complete upper body dressing at: - (Min assist) Patient will complete lower body dressing at: - (Min assist with adaptive equipment as needed) Patient will complete toilet transfer at: - (Min assist) Patient will complete toileting at: - (Min assist) Patient will perform bathing at: - (Min assist for upper body bathing and lower body bathing at min assist with adaptive equipment as needed.) Patient will perform Tub/Shower transfer at: - (Min assist with DME as needed) Patient will complete grooming at: - (Minimal assistance while seated at the sink) Patient will achieve: - (12 steps with 1 handrail to allow access to his 's basement at standby assist. ) Patient will have pain level of: of 3 or less Patient's skin will: remain intact Patient will receive: adequate nutrition. Discharge Planning Pt Prognosis for Sig. Practical Improv. w/in Reasonable Time: Good Estimated Length of stay (days): 28 Anticipated D/C Destination: TBD Was Preadmission Assessment Accurate?: Yes
[2024-04-28 13:08] LABS: AST(SGOT) 25 U/L (<=37); Alanine Aminotransfer ALT/SGPT 44 U/L (<=46); Albumin, Serum 3.1 g/dL (3.4-4.8); Alkaline Phosphatase 70 U/L (40-129); Bilirubin, Direct 0.18 mg/dL (0.00-0.30); Protein, Total 5.1 g/dL (5.9-8.4); Total Bilirubin 0.37 mg/dL (0.00-1.30)
[2024-04-28 13:47] LABS: CORTISOL AM 3.92 ug/dL (6.02-18.40)
[2024-04-28 14:07] VITALS: BP 122/51; PULSE 61; RESP 18; TEMP 36.5; O2SAT 93
[2024-04-28 18:00] VITALS: BP 103/44; PULSE 65; RESP 18; TEMP 36.9; O2SAT 95
[2024-04-28] MEDS: Na Biphos/Potassium Phosphate PACKET 1 PACKET PO (21:32)
[2024-04-28] MEDS: Mirtazapine 15 MG Tablet 7.5 MG PO (21:33)
[2024-04-29] MEDS: 0.9% Normal Saline (1000mL) 1,000 ML 100 ML IV (00:02)
[2024-04-29] MEDS: Cosyntropin 0.25 MG in 0.9% Normal Saline (Pres. free 4 ML 150 MG IV (04:53)
[2024-04-29 06:00] VITALS: BP 150/72; PULSE 61; RESP 18; TEMP 37.1; O2SAT 95
[2024-04-29] MEDS: Na Biphos/Potassium Phosphate PACKET 1 PACKET PO ×3 (06:13→21:32)
[2024-04-29 07:00] VITALS: BP 150/72; BP 152/59; PULSE 61
[2024-04-29] MEDS: Methocarbamol 500 MG Tablet 1000 MG PO ×4 (09:07→21:32)
[2024-04-29] MEDS: Polyethylene Glycol 3350 17 GM PACKET PO (09:07)
[2024-04-29] MEDS: Pantoprazole Sodium 20 MG Tablet PO (09:08)
[2024-04-29] MEDS: Senna/Docusate Sodium 1 Tablet 2 TABLET PO ×2 (09:09→21:33)
[2024-04-29] MEDS: Menthol/Lanolin/Calamine/Znox 113 GM Tube 1 APPLIC TOPICAL ×2 (09:13→21:30)
[2024-04-29] MEDS: Ensure Plus High Protein 120 ML LIQUID PO ×3 (09:18→17:04)
[2024-04-29 09:25] VITALS: BP 159/79; PULSE 65
[2024-04-29] MEDS: 0.9% Normal Saline (1000mL) 1,000 ML 80 ML IV ×2 (09:39→21:35)
[2024-04-29 10:58] VITALS: BP 97/51; PULSE 62
--- NOTE | 2024-04-29 10:58 | NURSING ---
Per Dr. Wright order, nurse Bridger and DIRT BIKE RACER got patient up in recliner in room, feet dependent, sarah hose in place and BP reading done 5 minutes after sitting in chair and recorded at this time.
[2024-04-29] MEDS: Midodrine HCl 5 MG Tablet 10 MG PO ×3 (11:16→17:46)
--- NOTE | 2024-04-29 17:40 | CASEMGMT ---
Social Work- SW met with pt for iniital assessment. SW introduced self and role. Pt SO, Naa, was present in the room. Pt agreeable to SW visit and Naa remaining for discussion. SW verified and updated contacts. Pt was guarded and reluctantly engaged in discussion. Pt expressed negative thinking patterns and became paranoid following questions regarding anxiety/depression, stating that the pt knew SW would listen for camejo words and tricky phrases to say something is wrong. SW provided reassurance and education again on purpose of assessment. Pt reports that he doesn't trust doctors, as they try to get me to take all these medications. Pt reports that he is against taking medications for his depression, but his SO is at the opposite end. SW shared that pt could discuss any medication concerns with physician on Wednesday at pt team meeting. Pt easily redirected, but would return to negative and paranoid thought patterns intermittently throughout discussion. Pt reports that he is a private person; SW empathetically and actively listened to pt thoughts and guided pt to solution-focused thought patterns and encouraged pt to utilize coping skills. SW remains available to follow pt for support and discharge planning. Pt had HCPOA and living will documentation in room. SW looked at documents to verify Naa as HCPOA. Pt scored 15/15 on BIMS. JAVIER Pimentel
[2024-04-29 18:00] VITALS: BP 164/68; PULSE 57; RESP 16; TEMP 37.1; O2SAT 93
[2024-04-29] MEDS: Mirtazapine 15 MG Tablet 7.5 MG PO (21:32)
[2024-04-30] MEDS: Na Biphos/Potassium Phosphate PACKET 1 PACKET PO ×3 (05:36→21:55)
[2024-04-30 07:00] VITALS: BP 151/47; PULSE 61; RESP 16; TEMP 37; O2SAT 95
[2024-04-30] MEDS: Midodrine HCl 5 MG Tablet 10 MG PO ×2 (08:07→11:53)
[2024-04-30] MEDS: Ensure Plus High Protein 120 ML LIQUID PO ×3 (08:08→18:29)
[2024-04-30] MEDS: Polyethylene Glycol 3350 17 GM PACKET PO (09:43)
[2024-04-30] MEDS: Pantoprazole Sodium 20 MG Tablet PO (09:43)
[2024-04-30] MEDS: Methocarbamol 500 MG Tablet 1000 MG PO ×4 (09:43→21:56)
[2024-04-30] MEDS: Senna/Docusate Sodium 1 Tablet 2 TABLET PO ×2 (09:43→21:56)
[2024-04-30] MEDS: Menthol/Lanolin/Calamine/Znox 113 GM Tube 1 APPLIC TOPICAL ×2 (09:48→21:57)
[2024-04-30] MEDS: 0.9% Normal Saline (1000mL) 1,000 ML 80 ML IV ×2 (10:12→21:58)
--- NOTE | 2024-04-30 16:56 | EKG12_ITS ---
Test Reason : ARRYTHMIA Blood Pressure : */* mmHG Vent. Rate : 59 BPM Atrial Rate : 59 BPM P-R Int : 130 ms QRS Dur : 86 ms QT Int : 418 ms P-R-T Axes : 41 -2 40 degrees QTcB Int : 413 ms Sinus bradycardia Otherwise normal ECG When compared with ECG of 24-Apr-2024 05:01, No significant change was found Confirmed by CHARLES CABELLO, MERCEDEZ ([id number]), news videotape editor LEANDER BRAY ([id number]) on 05/01/2024 9:48:33 AM Referred By: Corazon Wright Confirmed By: MERCEDEZ SOTO MD
--- NOTE | 2024-04-30 17:20 | NURSING ---
Pt c/o heart feeling funny to INTERNAL COMBUSTION ENGINE SUBASSEMBLER while she was checking VS. hr 55 BP 185/93. Pt due for nxt dose of midodrine with specific orders not to hold rx. message sent to Dr Wright. ECG ordered and instructed to hold 1700 dose of midodrine. ECG sinus yas. pic of ecg sent to doctor. T consistent on head and chest. Pt melendez draining well. Brief lightly soiled and changed at this time. Will continue to monitor
[2024-04-30 18:00] VITALS: BP 185/93; PULSE 55; RESP 16; TEMP 36.7; O2SAT 98
[2024-04-30 18:18] VITALS: BP 150/86; PULSE 56
[2024-04-30] MEDS: Mirtazapine 15 MG Tablet 7.5 MG PO (21:55)
[2024-04-30] MEDS: Acetaminophen 500 MG Tablet 1000 MG PO (21:57)
[2024-05-01 04:34] VITALS: BP 129/75; PULSE 53; RESP 18; TEMP 37.1; O2SAT 96
[2024-05-01] MEDS: Na Biphos/Potassium Phosphate PACKET 1 PACKET PO ×2 (05:00→14:24)
[2024-05-01 06:51] LABS: Hematocrit 35.2 % (40-54); Hemoglobin 11.9 g/dL (13.0-16.5); Mean Corp Hgb Conc 33.8 g/dL (32-36); Mean Corpuscular Hgb 30.2 pg (27.0-32.0); Mean Corpuscular Volume 89.3 fL (80-94); Mean Platelet Vol. 8.6 fl (6.2-12.0); Platelet Count 149 K/mm3 (150-450); RBC Distribution Width CV 12.8 % (11.6-14.6); RBC Distribution Width SD 41.9 fl (35.1-43.9); Red Blood Count 3.94 M/mm3 (4.6-6.2); White Blood Count 8.4 K/mm3 (4.4-11.0)
[2024-05-01 07:28] LABS: Phosphorus 3.3 mg/dL (2.7-4.5)
[2024-05-01 07:37] LABS: Anion Gap 8 (5-15); BUN 16 mg/dL (4-19); BUN/Creat Ratio 21.7 RATIO (10-20); Calcium,Total 8.1 mg/dL (7.6-11.0); Carbon Dioxide 23.7 mmol/L (21.0-32.0); Chloride 109 mmol/L (98-108); Creatinine, Serum 0.74 mg/dL (0.70-1.20); EST Glomerular Filtration Rate 91 (>60); Estimated Creatinine Clearance 68.88 ml/min (50-250); Glucose 99 mg/dL (70-99); Potassium 4.5 mmol/L (3.3-5.1); Sodium Level 141 mmol/L (133-145)
[2024-05-01] MEDS: Ensure Plus High Protein 120 ML LIQUID PO ×3 (08:42→17:18)
[2024-05-01] MEDS: Pantoprazole Sodium 20 MG Tablet PO (08:42)
[2024-05-01] MEDS: Methocarbamol 500 MG Tablet 1000 MG PO ×4 (08:42→20:49)
[2024-05-01] MEDS: Midodrine HCl 5 MG Tablet 10 MG PO ×3 (08:42→17:18)
[2024-05-01] MEDS: Senna/Docusate Sodium 1 Tablet 2 TABLET PO ×2 (08:42→20:49)
[2024-05-01] MEDS: 0.9% Normal Saline (1000mL) 1,000 ML 80 ML IV (11:53)
--- NOTE | 2024-05-01 12:34 | PCM.PROGNOTE ---
Subjective Subjective Milan was seen on team rounds today. His was present in the room. All their questions were answered to their satisfaction. Afebrile VSS -blood pressure over the past 48 hours has ranged from 97/51 to 185/93. The heart rate has ranged from 53-65. No orthostatics done this AM....will repeat in the AM. Maintaining appropriate oxygen saturation on RA-95 to 98%. He ate 50 to 74% of his breakfast and lunch today. Oral intake - FOOD has improved since arrival on rehab on 04/27/2024. FLUIDS oral fluid intake yesterday was 580 cc and he had 1941 cc intravenously. Today has had 580s so far. Unfortunately he had 4625 cc out yesterday for a fluid balance of -2102. Not on a diuretic. I suspect the diuresis may be related to postobstructive diuresis. We have had to hold Flomax because of the severe orthostatic hypotension. He was able to stand with therapy today and was not presyncopal. Discussed with nursing - no problems that need addressed Reviewed the THERAPY notes-he ambulated 7 feet today with mod assist of 2 or 3 staff. Medication list reviewed. All lab from today was personally reviewed. The white blood cell count is normal at 8.4. Hemoglobin is stable at 11.9. Platelets are 149,000 today. Sodium and potassium are within normal limits. The BUN is down to 16 from 27 on 04/29/2023. Creatinine is 0.74 which is within his baseline. He is to have a FEES today to assess swallowing. Hemoccult stool is negative. Had an episode of chest tightness yesterday. Blood pressure was elevated at the time and he was anxious. EKG was totally normal. Poor memory. Even after telling him that the Prozac did not cause diarrhea and reinforcing with him that he has been diagnosed by GI with IBS he can not remember and is still attributing diarrhea to Prozac. He also does not remember that he has been diagnosed with reflux esophagitis in the past after an EGD. He self discontinued a PPI. Is not able to recall why his left shoulder is dislocated even though this was explained by the physical therapist and myself. RONAN remains flaccid. Awareness of his disability is poor. He seems motivated to get better. Long hx of non-compliance in past. When I pointed out that the disability has to do with not taking care of himself, poor follow up with physician, non-compliance with medications and ignoring the fact that he has completely lost the ability to move the LUE for > 1 year he got upset with me. He also has not seen anyone for the urine retention and sx of outlflow obstruction he has been having. Objective Data Objective Data Vital Signs: Vital Signs Temp Pulse Resp BP Pulse Ox O2 Del Method 98.7 F 53 L 18 129/75 H 96 Room Air 05/01/24 04:34 05/01/24 04:34 05/01/24 04:34 05/01/24 04:34 05/01/24 04:34 05/01/24 04:34 Oxygen Delivery Method Room Air Weight: 170 lb 1.598 oz Body Mass Index (BMI) 25.7 Intake & Output: Intake and Output for Last 24 Hours 04/29/24 04/30/24 05/01/24 23:59 23:59 23:59 Intake Total 2999.67 / 2999.67 2521.33 / 2521.33 1340 / 1340 Output Total 3100 / 3100 4625 / 4625 1325 / 1325 Balance -100.33 / -100.33 -2103.67 / -2103.67 Lab / Micro Data 05/01/24 06:39 05/01/24 06:39 Labs: Laboratory Results - last 24 hr 05/01/24 06:39: WBC 8.4, RBC 3.94 L, Hgb 11.9 L, Hct 35.2 L, MCV 89.3, MCH 30.2, MCHC 33.8, RDW Std Deviation 41.9, RDW Coeff of Delia 12.8, Plt Count 149 L, MPV 8.6, Sodium 141, Potassium 4.5, Chloride 109 H, Carbon Dioxide 23.7, Anion Gap 8, BUN 16, Creatinine 0.74, Estim Creat Clear Calc 68.88, Est GFR (MDRD) Non-Af 91, BUN/Creatinine Ratio 21.7 H, Glucose 99, Calcium 8.1, Phosphorus 3.3 Micro: Microbiology 04/27/24 22:05 Urine Catheter - Catheter Urine Culture - Final Culture exhibits no growth. 04/29/24 22:20 Stool Stool Occult Blood (JERMAINE) - Final Physical Exam Const alert, oriented x3 and no apparent distress HEENT HEENT Narrative: Periorbital ecchymosis on the Left side and also has ecchymosis of the left face at the jawline. Conjunctiva is clear today. Mucous membranes are very dry. No thrush. The tongue protrudes on the midline. Neck Neck Narrative: He is in a rigid cervical collar. Resp normal respiratory effort, normal air movement and clear to auscultation bilaterally Effort and Inspection: able to speak in complete sentences; Negative for tachypneic Cardio regular rate, regular rhythm, no murmurs, no rub and no gallops Cardio Narrative: No ectopy GI normal to inspection, nondistended, normoactive bowel sounds, soft to palpation, non-tender and no bruits GI Narrative: No guarding with palpation. Positive ventral hernia. Extremity no calf tenderness and no pedal edema Skin Skin Narrative: Left anterior cervical incision secondary to recent discectomy and fusion C3-C6. General Skin Exam: no breakdown Rashes: no rashes Psych mental status grossly normal and thought process normal Psych Narrative: so far he is tolerating the Sertraline. Poor memory.......can not remember from one day to the next what I tell him. May be related to untreated depression. Activity / Motor Behavior: appropriate eye contact and other Has some psychomotor slowing.......due to depression? Tells me that this has become apparent to him since the fall recently.....has had several falls over the past 6 months. ; Negative for psychomotor agitation Speech: normal speech Mood & Affect: depressed and flat affect Assessment & Plan Assessment/Plan (1) Debility: (2) Cervical stenosis of spinal canal: (3) Foraminal stenosis of cervical region: (4) Cervical cord myelomalacia: (5) Cervical myelopathy: (6) Status post cervical spinal fusion: PLAN: Anterior cervical discectomy/decompression and fusion by Dr. Madi Diego on 04/26/2024. 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 Also with paresthesias in both UE's (12) Postural dizziness with near syncope: (13) Severe dehydration: (14) Orthostatic hypotension: (15) Urine retention: (16) GERD with esophagitis: QUALIFIERS: Esophagitis bleeding: without hemorrhage Qualified Code(s): K21.00 - Gastro-esophageal reflux disease with esophagitis, without bleeding (17) History of IBS: (18) Anxiety and depression: PLAN: Plan 1. Continue therapy 2. Will have a FEES today. 3. Continue Remeron at at bedtime. Continue Remeron at at bedtime 4. urine OP exceeds intake, even with the IV fluids. 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 will continue IVF's. Charges/Coding Visit Charges Inpatient E&M: 13862 Subs Hosp L2
--- NOTE | 2024-05-01 13:07 | CASEMGMT ---
Social Work IDT met with patient and ex- for Team meeting. Discussed patient's progress in PT/OT/ST/SN. Educated to Medicare benefit. SW to notify pt/family once DC date is known from . Currently, pt is x2 assist and ex- cannot physically assist at home, though, they do not live together. noted pt is noncompliant with medical care in the community. Dr, pt and ex- had discussions about pt's noncompliance, depression and taking better care of self at home. IDT collectively encouraged pt to reframe mindset and improve his attitude to become more positive. Ex- noted pt's attitude is baseline. SW to complete PHQ-9, per protocol, and notify Dr of outcome. SW will continue to follow for DC planning and support. Pamela Jacobs MSW SCHOOL LEADER
--- NOTE | 2024-05-01 14:11 | CASEMGMT ---
Social Work SW returned after Team and completed PHQ-9. Pt scored 01/04. Pt admitted to be feeling depressed and other symptoms since fall, however, denied any feelings prior. SW explored positive feelings and pt was forthcoming. Regarding pt?s appetite, pt explained he had slowly declined with eating meals, going from 3 meals a day to only eating dinner. However, since the fall, pt reports very poor appetite. Pt shared he feels like he let his family down since the fall, stating ?I?d rather be the caregiver?, as he assisted ex- with IADL tasks, such as grocery shopping, etc. Pt denied having difficulty concentrating on things, as he does not watch TV, sharing his favorite hobby was drawing. SW explored pt?s interest as pt?s body language showed pride in this talent. 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 Pt shared his friends encouraged him to sell his drawings, which he did, and he was proud of his accomplishments. Once his functioning declined, so did his opinion of the quality of work of his drawings. Pt reported he would get ?frustrated? with the imperfections and throw away the drawings. Pt stated he stopped drawing during the winter (of [id number]). SW offered to provide materials for drawing during stay if pt showed interest, encouraging him as this worker was interested in seeing his talents. Pt replied, ?really, you would??. SW confirmed. Pt appreciative of the sentiment. SW continued with the conversation. Reiterating pt?s report of depressive symptoms and Dr started pt on antidepressant day of admission. Pt?s body language shifted as he expressed his strong dislike for taking medication, which leads to his refusals and ?noncompliance? with medical care. SW explored reasoning further and how medications make him feel, leading to the dislike. Pt stated, when he takes the pills, ?it feels like I?ve got worms crawling all over [my stomach]?. Pt stated he does not like getting a ?group? of pills at once, as he cannot differentiate the effectiveness of each medication and if there is a side effect. SW validated feelings. Discussed further and concluded for this worker to speak with Dr on concerns for compromise and possible resolution. Pt appreciative but agreed he will ?give it a try? and continue taking the prescribed medication. Pt continued sharing his feelings about being admitted and the decline in functioning from the fall. Pt in disbelief about the lack of pain he is in given the severity of the fall. SW offered pt has a strong mentality. Pt slightly disagreed and became emotional. SW provided silent support and maintained active listening to allow a safe space for pt to share his feelings. Pt finally stated, ?I feel like God abandoned me?. Pt continued, Thou shall not kill is what God commands, for others and for yourself. And I know kill myself would be a sin, so I'm not going to do it, but I'm 83 years old. Life expectancy in [place] is 76. Why don't I just so I can give life to another younger, healthier person. Pt continued to share his thoughts on God's reasoning for taking his health. SW conversed with pt about his feelings and struggles with is radha currently. Pt appreciative of conversation. Pt continued sharing his vulnerability with stay as he was tearful explaining the need for assistance with personal care tasks. Pt explained he was raised in a strict, modest, household. You didn't see your mom naked. You didn't see your sister naked. So being here and having so many strangers seeing me exposed.... Pt was very tearful. SW empathized and validated pt's feelings with vulnerability. SW sensitively probed about pt's childhood or any experiences to cause reaction. Pt denied, explicitly stating, no, no one touched me or hurt me. SW lightly assured pt that the staff are trained professionals and their role is to assist with personal care tasks, however, continued recognizing the impact on the pt. SW to make staff aware to be more sensitive to tasks with pt and limit any personal exposure as able. Pt appreciative and expressed understanding to the staff's role and the need to assist. PROGRAM MANAGEMENT INTERN presented to room to begin session. SW offered ongoing supportive visits as needed. Pt appreciative. -- AGAPITO provided verbal hand off to OT and on above. Non-order nursing communication entered to be sensitive with personal care tasks. Referral made to [facility]. SW will continue to follow for DC planning and support. Pamela Jacobs SPEARER [employer]FI[employer] GAS COLLECTION OPERATOR
--- NOTE | 2024-05-01 15:54 | CHAPLAIN ---
Type of Pastoral Visit ___ Initial Visit _x__ Follow-up Visit ___ On-call Visit ___ General Patient Visit ___ Spiritual Assessment ___ Family Conference ___ Bereavement ___ Rapid Response ___ Code Blue ___ Other (describe below) Pastoral Care Referral From _x__ Patient ___ Family ___ Nurse ___ Physician ___ Environmental Compliance Inspector ___ Outdoor Education Teacher ___ Other (describe below) Sacrament/Intervention _x__ Active listening ___ Anointing ___ Latter Day ___ Bereavement ___ Communion ___ Latoya exploration ___ ___ Life review _x__ Prayer ___ Reconciliation ___ Sacrament of Sick _x__ Supportive presence ___ Wedding ___ Other (describe below) Pastoral Comments follow up with this patient who is now in Rehab; pt has had surgery and has been told there are other things to have done; pt says that he is just going through as he is expected; pt says a prayer would be fine; pt does not engage much in conversation today;
[2024-05-01 17:43] VITALS: BP 172/76; PULSE 52; RESP 17; TEMP 37.1; O2SAT 97
[2024-05-01] MEDS: Mirtazapine 15 MG Tablet 7.5 MG PO (20:49)
[2024-05-01] MEDS: Menthol/Lanolin/Calamine/Znox 113 GM Tube 1 APPLIC TOPICAL (20:51)
[2024-05-02] MEDS: 0.9% Normal Saline (1000mL) 1,000 ML 80 ML IV ×2 (00:22→12:15)
[2024-05-02 06:00] VITALS: BP 167/85; PULSE 62; RESP 17; TEMP 37.2; O2SAT 95
[2024-05-02 07:39] VITALS: BP 103/52; BP 124/52; BP 158/73; PULSE 58; PULSE 61; PULSE 74
[2024-05-02] MEDS: Methocarbamol 500 MG Tablet 1000 MG PO ×2 (08:46→14:31)
[2024-05-02] MEDS: Midodrine HCl 5 MG Tablet 10 MG PO ×3 (08:46→18:09)
[2024-05-02] MEDS: Pantoprazole Sodium 20 MG Tablet PO (08:47)
[2024-05-02] MEDS: Senna/Docusate Sodium 1 Tablet 2 TABLET PO ×2 (08:47→21:16)
[2024-05-02 09:55] VITALS: BP 144/79; BP 82/46; PULSE 57; PULSE 62
--- NOTE | 2024-05-02 09:58 | SP.FEES_ITS ---
FEES Patient Information Date of Evaluation: 05/01/24 Time of Evaluation: 14:00 Diagnosis: Dysphagia R13.10 Referring Physician: Corazon Wright Staff Providing this Care/Treatment:: Clotilde Alanis M.A. [facility] CONSULTANT (Pt fed by Elayne Mcclendon OTR) Direct Billable Minutes: 120 History: Past Medical History:: The patient presented to [facility] ED 04/19/2024 after a fall at home w/ lightheadedness. He reports several falls in the past 6 months w/ lightheadedness and near syncope. In the ED, he had weakness of the L arm, an occipital scalp hematoma and bruising/hematoma of the left face. He denied TORRES but, he complained of neck pain. He had a fall a few weeks prior and broke his nose. A NC CTB was obtained. It did not show any acute findings other than a Left maxillary fx and fluid in the Left maxillary sinus. CTA head and neck showed no significant areas of stenosis and no more than special occlusion. No aneurysms or large vascular malformations. MRI was ordered and showed no acute intracranial abnormality, specifically no evidence of acute ischemia. MRI of the cervical spine showed acquired multilevel spinal stenosis, severe at C3-C4 and C4-C5. There was mild to severe multilevel foraminal narrowing. There was myelomalacia at the level of C4 and C5 likely related to severe spinal canal stenosis. Orthopedics consulted. Dr. Diego noted that the patient had preoperative baseline dysphagia. On 04/26/2024, the patient underwent C3-6 anterior cervical decompression/discectomy and fusion. Post operatively dysphagia increased. ST not consulted during patient's acute stay. The patient was transferred to inpatient rehab for PT, OT, and ST. PMH: Angiectasia of large intestine, History of gastric polyp, GERD with esophagitis, Postural dizziness with near syncope, Bilateral arm weakness, Osteoarthritis, Anxiety and depression, Ventral hernia, Loss of hearing, Wears glasses, Wears dentures, Alcohol use, History of IBS, Heartburn, Former smoker, History of stress test, Progressive weakness w/ numbness and loss of function of the LUE over the past 2 years. Subjective: Subjective:: Pt reports difficulty swallowing liquids and solids. Solids feel as if they become stuck and won't go down. Current Diet: Drinks/Liquids:: Thin Foods:: Minced & Moist Medication Administration:: crushed in puree Supervision: Total Feed Respiratory Status Observation:: Room air Vocal Quality: Observations:: Hoarse Cognition: Observations:: WFL Position During FEES: Position During FEES:: Upright Location: In Bed Fiberoptic Endoscope: Size: 3.4 mm Nare Used:: Right Comments: Scope was passed through the R nasal cavity w/o difficulty Anatomical Findings: Anatomical Findings:: Pharynx and larynx moderately edematous throughout. Cobblestoning on posterior pharyngeal wall consistent with hx of GERD. Edema obscured view of arytenoids and pyriform sinuses during normal breathing, but these structures appeared normal during phonation although they are also edematous. Observation of the laryngeal structures revealed a slightly asymmetrical, omega-shaped epiglottis, judged to be a normal anatomical variation. During phonation tasks, pt demonstrated complete adduction of true vocal folds and partial adduction of ventricular folds. Decreased pharyngeal contraction evident w/ vocal glides. Secretions: Description:: Thin and Clear Penetration-Aspiration Scale Penetration-Aspiration Scale Thin Liquids by Teaspoon Food/Drink Provided:: Green-colored water Swallow Onset Location:: Tongue Base PAS Score: PAS Score *1 Visual Analysis of Swallowing Efficiency and Safety (VASES) after the swallow: Oropharynx VASES Comments:: <5% tongue base, <5% vallecula Thin Liquids by Single Cup Food/Drink Provided:: Green-colored water PAS Score: PAS Score *1 Visual Analysis of Swallowing Efficiency and Safety (VASES) after the swallow: Oropharynx Comments:: <5% lateral edges of epiglottis, <5% vallecula Additional Comments:: Independent use of double swallow Thin Liquids by Sequential Straw Food/Drink Provided:: Green-colored water PAS Score: PAS Score *4 Visual Analysis of Swallowing Efficiency and Safety (VASES) after the swallow: Oropharynx, Hypopharynx, Epiglottis and Laryngeal Vestibule Comments:: <5% aryepiglottic folds, <5% arytenoid cartilages, <5% pyriform sinuses, 10% vallecula, <5% epiglottis, arytenoid residue spilled to the interarytenoid tissue and vocal folds w/ reflexive cough Additional Comments:: After this trial, patient gagged and coughed w/ retrograde flow of liquid content through UES. Pt attributed gagging to feeling scope rather than reflux. Mildly Thick Liquids by Teaspoon Food/Drink Provided:: Green-colored apple juice Swallow Onset Location:: Vallecula and Epiglottis PAS Score: PAS Score *4 Visual Analysis of Swallowing Efficiency and Safety (VASES) after the swallow: Oropharynx, Laryngeal Vestibule and Vocal Folds Comments:: 5% vallecula, 5% aryepiglottic folds, 5% pyriform sinuses, <5% laryngeal vestibule and vocal folds Puree Textures Food/Drink Provided:: Green-colored applesauce Swallow Onset Location:: Tongue Base PAS Score: PAS Score *1 Visual Analysis of Swallowing Efficiency and Safety (VASES) after the swallow: Oropharynx Comments:: 5% vallecula Additional Comments:: Independent use of double swallow Soft & Bite Sized Textures Food/Drink Provided:: Bite-size cracker softened in applesauce Swallow Onset Location:: Vallecula PAS Score: PAS Score *5 Visual Analysis of Swallowing Efficiency and Safety (VASES) after the swallow: Oropharynx, Hypopharynx, Epiglottis and Vocal Folds Comments:: 10% vallecula (cracker), 5% pyriforms, 5% aryepiglottic folds, 5% vocal folds, <5% laryngeal vestibule Strategies Trialed:: Cued double swallow to clear the cookie Additional Comments:: Laryngeal penetration of applesauce coating the cracker to the vocal folds w/ reflexive coughing. Diagnosis/Impressions Diagnosis: Moderate pharyngeal dysphagia R13.13 Impressions: The pharyngeal phase is marked by... -Decreased pharyngeal contraction likely secondary to moderate post-operative edema w/ pt utilizing double swallows to compensate. Mild pharyngeal residues m ost notable w/ cracker in the vallecula. -Laryngeal penetration of thin liquid residue spilling from the arytenoids w/ reflexive cough appearing to fully eject the liquid. Laryngeal penetration of ap plesauce coating on cracker w/ reflexive cough w/ trace applesauce remaining in the laryngeal vestibule after the study. Laryngeal penetration of mildly thick liquids by tsp w/ reflexive cough fully ejecting liquid. No aspiration observed during the study. -Gagging in response to scope w/ retrograde flow of liquid through UES w/ reflexive coughing. Recommendations Diet: Minced and Moist Textures and Thin Liquids Medication Administration:: Crushed in puree Comments: Sips 1 at a time, double swallow w/ solids (minced/moist textures) Compensatory Strategies: Small Bites, Small Sips, Slow Rate, Multiple Swallows, Alternate bites/solids and sips/liquids, Sitting upright and Remain sitting upright for 30 minutes after PO intake Supervision: Total Feed Recommend Repeat Instrumental Swallow Assessment: Yes Comments: Will recommend MBSS w/ esophageal screening in upcoming sessions to assess concerns for esophageal dysphagia given hx of GERD w/ esophagitis and retrograde flow of sequential thin through UES during FEES. Need for Skilled Speech Therapy Services: Yes Comments: MBSS in upcoming sessions for further assessment Oropharyngeal strengthening (Effortful swallows, Yari, Dany) Continue to follow for diet tolerance Consider downgrade to purees if poor tolerance of minced and moist diet textures Train pt and staff in strategies to decrease risk for aspiration and reflux aspiration Education Completed: 1. Described result of evaluation., 2. Pt understands evaluation & agrees with goals and treatment plan. and 7. Pt requires further education on strategies & risks.
[2024-05-02] MEDS: Ensure Plus High Protein 120 ML LIQUID PO ×2 (12:11→18:09)
--- NOTE | 2024-05-02 12:36 | PCM.PROGNOTE ---
Subjective Subjective Afebrile VSS -blood pressure over the past 24 hours has ranged from 82/46 to 172/76. Blood pressure seated today was 144/79 with a heart rate of 57. Standing with therapy the blood pressure was 82/46 with a heart rate of 62 and he was very lightheaded/near syncopal. Maintaining appropriate oxygen saturation on RA Oral intake - FOOD eating 50 to 74% of some of his meals and 75 to 100% of others. Occasionally refuses a meal. Nursing has to feed him. FLUIDS oral fluid intake is still poor. He took only 820 cc yesterday. He had 1000 cc of IV fluid for a fluid balance of -830. Overnight his intake was 2289 and the output was 1800 cc for a fluid balance of positive is 489. Urine output seems to be slowing down. Last bowel movement was yesterday. Discussed with nursing - no problems that need addressed Reviewed the THERAPY notes-he was able to ambulate 26 feet today despite orthostasis. It took 3 staff to walk him at [facility] to [place] assist Medication list reviewed. Has not taken any Oxycodone since it was ordered on the . I reviewed the fees done yesterday. Marked edema in the posterior pharynx with cobblestoning and marked edema of the larynx. Likely has been refluxing and has chronic irritation. Diet was changed to minced and moist with thin liquids and double swallows. There is concern for esophageal dysmotility. MBS at some point during this admission. Protonix increased to 40 mg BID. Denies cephalgia, chest pain, shortness of breath, cough, palpitations, heartburn, nausea/vomiting/abdominal pain and calf pain. Objective Data Objective Data Vital Signs: Vital Signs Temp Pulse Resp BP Pulse Ox O2 Del Method 99.0 F 62 17 82/46 L 95 Room Air 05/02/24 06:00 05/02/24 09:55 05/02/24 06:00 05/02/24 09:55 05/02/24 06:00 05/02/24 06:00 Oxygen Delivery Method Room Air Weight: 170 lb 1.598 oz Body Mass Index (BMI) 25.7 Intake & Output: Intake and Output for Last 24 Hours 04/30/24 05/01/24 05/02/24 23:59 23:59 23:59 Intake Total 2521.33 / 2521.33 1820 / 1820 2049. / Output Total 4625 / 4625 2650 / 2650 1800 / 1800 Balance -2103.67 / -2103.67 -830 / -830 249.34 / 249.34 Lab / Micro Data 05/01/24 06:39 05/01/24 06:39 Micro: Microbiology 04/27/24 22:05 Urine Catheter - Catheter Urine Culture - Final Culture exhibits no growth. 04/29/24 22:20 Stool Stool Occult Blood (JERMAINE) - Final Physical Exam Const alert, oriented x3 and no apparent distress Neck Neck Narrative: He is in a rigid cervical collar. Resp normal respiratory effort, normal air movement and clear to auscultation bilaterally Effort and Inspection: able to speak in complete sentences; Negative for tachypneic Cardio regular rate, regular rhythm, no murmurs, no rub and no gallops Cardio Narrative: No ectopy GI normal to inspection, nondistended, normoactive bowel sounds, soft to palpation, non-tender and no bruits GI Narrative: No guarding with palpation. Positive ventral hernia. Extremity no calf tenderness and no pedal edema Skin Skin Narrative: Left anterior cervical incision secondary to recent discectomy and fusion C3-C6. General Skin Exam: no breakdown Rashes: no rashes Psych Psych Narrative: so far he is tolerating the Sertraline. Poor memory.......can not remember from one day to the next what I tell him. May be related to untreated depression. 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: QUALIFIERS: Encounter type: subsequent encounter Qualified Code(s): S06.9X9D - Unspecified intracranial injury with loss of consciousness of unspecified duration, subsequent encounter (10) Left maxillary fracture: QUALIFIERS: Encounter type: subsequent encounter Fracture type: closed (11) Dysphagia: QUALIFIERS: Dysphagia type: pharyngeal phase Qualified Code(s): R13.13 - Dysphagia, pharyngeal phase (12) Bilateral arm weakness: (13) Postural dizziness with near syncope: (14) Severe dehydration: (15) Orthostatic hypotension: (16) Urine retention: (17) GERD with esophagitis: QUALIFIERS: Esophagitis bleeding: without hemorrhage Qualified Code(s): K21.00 - Gastro-esophageal reflux disease with esophagitis, without bleeding (18) History of IBS: (19) Anxiety and depression: PLAN: Plan 1. Continue therapy 2. Continue IV fluids 3. Hold Robaxin because it can cause bradycardia and hypotension 4. Increase pantoprazole to 40 mg twice daily 5. Plan MBS to assess for esophageal dysmotility -will discuss with speech therapy 6. Recheck orthostatics in the a.m. x 3 days Charges/Coding Visit Charges Inpatient E&M: 43602 [facility] L1
[2024-05-02] MEDS: BENZOCAINE/MENTHOL 1 LOZENGE MUCOUS MEM ×2 (12:45→14:31)
--- NOTE | 2024-05-02 15:27 | CASEMGMT ---
Addendum entered by Pamela Jacobs 05/02/24 15:46: Ex- returned call. SW informed her of days. Original Note: Social Work SW updated pt that Medicare approved 23 days, with DC 05/20. Pt agreed to remain and participate in therapy for the duration. SW inquired if pt would like this worker to contact ex-. Pt confirmed. - SW left with ex- requesting return call. Pamela Jacobs GRADES 7 [phone] TUT[employer] H[employer] SERVICE COORDINATOR
[2024-05-02 18:00] VITALS: BP 170/80; PULSE 51; RESP 16; TEMP 37.1; O2SAT 96
[2024-05-02 19:40] VITALS: PULSE 54; RESP 16; O2SAT 96
[2024-05-02] MEDS: Mirtazapine 15 MG Tablet 7.5 MG PO (21:16)
[2024-05-02] MEDS: Pantoprazole Sodium 40 MG Tablet PO (21:16)
[2024-05-02] MEDS: Menthol/Lanolin/Calamine/Znox 113 GM Tube 1 APPLIC TOPICAL (21:18)
[2024-05-02] MEDS: 0.9% Normal Saline (1000mL) 1,000 ML 125 ML IV (21:26)
[2024-05-03 05:10] VITALS: BMI 25.2
[2024-05-03 06:00] VITALS: BP 137/71; PULSE 57; RESP 16; TEMP 36.9; O2SAT 97
[2024-05-03] MEDS: 0.9% Normal Saline (1000mL) 1,000 ML 125 ML IV ×3 (06:17→22:29)
[2024-05-03] MEDS: Menthol/Lanolin/Calamine/Znox 113 GM Tube 1 APPLIC TOPICAL ×2 (07:57→21:21)
[2024-05-03] MEDS: Senna/Docusate Sodium 1 Tablet 2 TABLET PO ×2 (07:58→21:20)
[2024-05-03] MEDS: Ensure Plus High Protein 120 ML LIQUID PO ×3 (07:58→17:18)
[2024-05-03] MEDS: Pantoprazole Sodium 40 MG Tablet PO ×2 (07:58→21:21)
[2024-05-03] MEDS: Midodrine HCl 5 MG Tablet 10 MG PO ×3 (07:58→17:18)
[2024-05-03 10:00] VITALS: BP 100/58; BP 148/76; BP 161/74; PULSE 54; PULSE 60; PULSE 61
[2024-05-03] MEDS: 0.9% Saline Lock 10 ML Syringe IV (11:59)
--- NOTE | 2024-05-03 12:27 | PN_ITS ---
Subjective Subjective Afebrile VSS -blood pressure over the past 24 hours has ranged from 103/52 to 170/80. Heart rate is ranged from 51-74. Robaxin was discontinued yesterday due to its potential of causing bradycardia and hypotension. He was taking 1000 mg every 6 hours at presentation to rehab and it will take a few days to wash out of his system so I suspect we are still seeing some of the effects of the Robaxin. Blood pressure lying down today was 161/74 and the heart rate was 54. Standing up the blood pressure was 100/58 with a pulse rate of 60. Maintaining appropriate oxygen saturation on RA-95 to 97%. Oral intake - FOOD appetite and intake is highly variable. FLUIDS fluid balance was still negative yesterday at -840. Overnight he was -775. IV fluids were increased yesterday. Not on a diuretic. Suspect postobstructive diuresis. Having regular bowel movements Discussed with nursing - no problems that need addressed Reviewed the THERAPY notes Medication list reviewed. Tells me he has no appetite. He thinks he slept well last night. He is c/o burning in his hands and legs today. This is new. Tells me the dizziness with standing is mildly better today. Denies chest pain, shortness of breath, cough, palpitations, nausea/vomiting/abdominal pain. Urine in the Quigley bag is clear with no sediment. Objective Data Objective Data Vital Signs: Vital Signs Temp Pulse Resp BP Pulse Ox O2 Del Method 98.4 F 54 L 16 161/74 H 97 Room Air 05/03/24 06:00 05/03/24 10:00 05/03/24 06:00 05/03/24 10:00 05/03/24 06:00 05/03/24 06:00 Oxygen Delivery Method Room Air Weight: 166 lb 3.657 oz Body Mass Index (BMI) 25.2 Intake & Output: Intake and Output for Last 24 Hours 05/01/24 05/02/24 05/03/24 23:59 23:59 23:59 Intake Total 1820 / 1820 3709.34 / 3709.34 1200 / 1200 Output Total 2650 / 2650 4550 / 5175 1974 Balance -830 / -830 -840.66 / -1465.66 -775 / -775 Lab / Micro Data 05/01/24 06:39 05/01/24 06:39 Micro: Microbiology 04/27/24 22:05 Urine Catheter - Catheter Urine Culture - Final Culture exhibits no growth. 04/29/24 22:20 Stool Stool Occult Blood (JERMAINE) - Final Physical Exam Const alert, oriented x3 and no apparent distress Neck Neck Narrative: He is in a rigid cervical collar. Resp normal respiratory effort, normal air movement and clear to auscultation bilaterally Effort and Inspection: able to speak in complete sentences; Negative for tachypneic Cardio regular rate, regular rhythm, no murmurs, no rub and no gallops Cardio Narrative: No ectopy GI normal to inspection, nondistended, normoactive bowel sounds, soft to palpation, non-tender and no bruits GI Narrative: No guarding with palpation. Positive ventral hernia. Extremity no calf tenderness Skin General Skin Exam: no breakdown Rashes: no rashes Psych Psych Narrative: Slept better last night but still complaining of decreased appetite and oral food intake has been very erratic. Does not appear anxious. 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: QUALIFIERS: Encounter type: subsequent encounter Qualified Code(s): S06.9X9D - Unspecified intracranial injury with loss of consciousness of unspecified duration, subsequent encounter (10) Left maxillary fracture: QUALIFIERS: Encounter type: subsequent encounter Fracture type: c losed (11) Dysphagia: QUALIFIERS: Dysphagia type: pharyngeal phase Qualified Code(s): R 13.13 - Dysphagia, pharyngeal phase (12) Bilateral arm weakness: (13) Postural dizziness with near syncope: (14) Severe dehydration: (15) Orthostatic hypotension: (16) Urine retention: (17) GERD with esophagitis: QUALIFIERS: Esophagitis bleeding: without hemorrhage Qualified Code(s): K21.00 - Gastro-esophageal reflux disease with esophagitis, without bleeding (18) History of IBS: (19) Anxiety and depression: PLAN: Plan 1. Continue therapy 2. Add Gabapentin 100 mg BID to the current drug regimen. 3. Increase the Remeron to 15 mg Q HS 4. Give a 1 liter NS bolus now and then increase the IV rate to 125 cc/hr. 5. BMP and HH in the AM 6. I am hoping the orthostasis improves once the Robaxin has washed out. 7. Recheck orthostatics in the AM. Charges/Coding Visit Charges Inpatient E&M: 23574 [facility]s Hosp L1
[2024-05-03] MEDS: 0.9% Normal Saline (500mL Bag) 500 ML 999 ML IV (13:20)
[2024-05-03 13:24] LABS: Hematocrit 38.8 % (40-54); Hemoglobin 12.9 g/dL (13.0-16.5)
[2024-05-03] MEDS: Gabapentin 100 MG Capsule PO (17:18)
[2024-05-03 18:00] VITALS: BP 157/65; PULSE 55; RESP 17; TEMP 36.5; O2SAT 95
[2024-05-03] MEDS: BENZOCAINE/MENTHOL 1 LOZENGE MUCOUS MEM (19:38)
[2024-05-03] MEDS: Mirtazapine 15 MG Tablet PO (21:21)
[2024-05-04] MEDS: Acetaminophen 500 MG Tablet 1000 MG PO (02:59)
[2024-05-04 06:00] VITALS: BP 151/76; PULSE 55; RESP 16; TEMP 36.6; O2SAT 94
[2024-05-04] MEDS: 0.9% Saline Lock 10 ML Syringe IV (06:16)
[2024-05-04] MEDS: 0.9% Normal Saline (1000mL) 1,000 ML 125 ML IV (06:16)
[2024-05-04 07:28] LABS: Hematocrit 37.1 % (40-54); Hemoglobin 12.5 g/dL (13.0-16.5)
[2024-05-04] MEDS: Gabapentin 100 MG Capsule PO ×2 (08:03→16:32)
[2024-05-04] MEDS: Menthol/Lanolin/Calamine/Znox 113 GM Tube 1 APPLIC TOPICAL ×2 (08:03→20:17)
[2024-05-04] MEDS: Pantoprazole Sodium 40 MG Tablet PO ×3 (08:03→19:44)
[2024-05-04] MEDS: Midodrine HCl 5 MG Tablet 10 MG PO ×3 (08:03→17:47)
[2024-05-04 08:19] LABS: Anion Gap 8 (5-15); BUN 13 mg/dL (4-19); Calcium,Total 8.2 mg/dL (7.6-11.0); Carbon Dioxide 21.7 mmol/L (21.0-32.0); Chloride 111 mmol/L (98-108); Creatinine, Serum 0.73 mg/dL (0.70-1.20); EST Glomerular Filtration Rate 91 (>60); Estimated Creatinine Clearance 68.88 ml/min (50-250); Glucose 99 mg/dL (70-99); Potassium 4.2 mmol/L (3.3-5.1); Sodium Level 140 mmol/L (133-145)
[2024-05-04 08:54] VITALS: BP 120/57; BP 133/67; BP 98/58; PULSE 54; PULSE 60; PULSE 61
[2024-05-04 17:42] VITALS: BP 165/71; PULSE 56; RESP 17; TEMP 36.6; O2SAT 94
--- NOTE | 2024-05-04 18:08 | NURSING ---
Pt's BP elevated this evening. Dr Wright made aware. new order to give 5mg of scheduled 10mg Midodrine.
[2024-05-04] MEDS: Mirtazapine 15 MG Tablet PO (19:43)
[2024-05-04] MEDS: Senna/Docusate Sodium 1 Tablet 2 TABLET PO (19:44)
[2024-05-04 20:15] VITALS: BP 171/68; PULSE 54; RESP 16; TEMP 36.6; O2SAT 95
[2024-05-05 05:17] VITALS: BP 137/61; PULSE 51; RESP 16; TEMP 37.1; O2SAT 97; BMI 24.7
[2024-05-05] MEDS: Pantoprazole Sodium 40 MG Tablet PO ×2 (07:54→20:23)
[2024-05-05] MEDS: Midodrine HCl 5 MG Tablet 10 MG PO ×3 (07:54→17:04)
[2024-05-05] MEDS: Polyethylene Glycol 3350 17 GM PACKET PO (07:54)
[2024-05-05] MEDS: Gabapentin 100 MG Capsule PO ×2 (07:55→17:04)
[2024-05-05] MEDS: Senna/Docusate Sodium 1 Tablet 2 TABLET PO (07:55)
[2024-05-05] MEDS: Menthol/Lanolin/Calamine/Znox 113 GM Tube 1 APPLIC TOPICAL ×2 (07:59→20:23)
[2024-05-05 08:00] VITALS: BP 86/48; PULSE 55
[2024-05-05 09:00] VITALS: BP 102/50; BP 103/47; BP 106/37; PULSE 72; PULSE 75; PULSE 80
--- NOTE | 2024-05-05 11:03 | PN_ITS ---
Subjective Subjective Afebrile Heart rate continues to be slow at times even with the discontinuation of Robaxin. The heart rate over the past 48 hours has ranged from 51-72. The heart rate today is 72. Blood pressure lying down today is 102/50 with a pulse rate of 72. Blood pressure sitting with his legs dependent was 103/47 with a heart rate of 80. Blood pressure standing was 106/37 with a pulse rate of 75. Still with very poor oral fluid intake despite being admonished to increase his fluid intake to help manage the orthostatic hypotension. IV fluids were discontinued yesterday. Appetite remains poor. Had a large BM while sitting on the toilet today. He had to be coached by the occupational therapist to lean forward and bear down to have a bowel movement. He was unaware that he had a bowel movement. Required max assist x 2 for hygiene post BM and management of clothing. Weight today is 163 pounds and 3 ounces which is down from 170 pounds and 1 ounce on 04/28/2024. Denies burning pain in the legs today. Tolerating the Gabapentin. speech therapy ate lunch with him today and he fed himself half the meal and the other half she helped him with but, he ate everything and drank an Ensure. Tells me he slept well last night. Denies pain in the legs today. Also denies chest pain, cough, palpitations, shortness of breath. Has built up utensils to eat with. Objective Data Objective Data Vital Signs: Vital Signs Temp Pulse Resp BP Pulse Ox O2 Del Method 98.8 F 72 16 102/50 L 97 Room Air 05/05/24 05:17 05/05/24 09:00 05/05/24 05:17 05/05/24 09:00 05/05/24 05:17 05/05/24 05:17 Oxygen Delivery Method Room Air Weight: 163 lb 3.2 oz Body Mass Index (BMI) 24.7 Intake & Output: Intake and Output for Last 24 Hours 05/03/24 05/04/24 05/05/24 23:59 23:59 23:59 Intake Total 3993.75 / 3993.75 2452.92 / 2512.92 660 / 660 Output Total 4325 / 4325 2300 / 2300 1550 / 1550 Balance -331.25 / -331.25 152.92 / 212.92 -890 / -890 Lab / Micro Data 05/04/24 07:15 05/04/24 07:15 Micro: Microbiology 04/27/24 22:05 Urine Catheter - Catheter Urine Culture - Final Culture exhibits no growth. 04/29/24 22:20 Stool Stool Occult Blood (JERMAINE) - Final Physical Exam Const alert, oriented x3 and no apparent distress Neck Neck Narrative: He is in a rigid cervical collar. Resp normal respiratory effort, normal air movement and clear to auscultation bilaterally Effort and Inspection: able to speak in complete sentences; Negative for tachypneic Cardio regular rate, regular rhythm, no murmurs, no rub and no gallops Cardio Narrative: No ectopy GI normal to inspection, nondistended, normoactive bowel sounds, soft to palpation, non-tender and no bruits GI Narrative: No guarding with palpation. Positive ventral hernia. Extremity no calf tenderness Skin General Skin Exam: no breakdown Rashes: no rashes Psych Psych Narrative: Slept better last night but still complaining of decreased appetite and oral food intake has been very erratic. If there is no one in there with him he does not eat, doesn't even try. Does not appear anxious. 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: QUALIFIERS: Encounter type: subsequent encounter Qualified Code(s): S06.9X9D - Unspecified intracranial injury with loss of consciousness of unspecified duration, subsequent encounter (10) Left maxillary fracture: QUALIFIERS: Encounter type: subsequent encounter Fracture type: c losed (11) Dysphagia: QUALIFIERS: Dysphagia type: pharyngeal phase Qualified Code(s): R 13.13 - Dysphagia, pharyngeal phase (12) Bilateral arm weakness: (13) Postural dizziness with near syncope: (14) Severe dehydration: (15) Orthostatic hypotension: (16) Urine retention: (17) GERD with esophagitis: QUALIFIERS: Esophagitis bleeding: without hemorrhage Qualified Code(s): K21.00 - Gastro-esophageal reflux disease with esophagitis, without bleeding (18) History of IBS: (19) Anxiety and depression: PLAN: Plan 1. Continue therapy 2. Needs a lot of encouragement to try and do thing for himself. Hoping this will improve with Remeron but, suspect he has been like this most of his life. He is sleeping better. 3. Will have NA sit with him for meals and feed if necessary. 4. Suspect he will need to go to a facility at [place] from rehab. 5. Needs to follow up with psychiatry for meds and psychotherapy. Charges/Coding Visit Charges Inpatient E&M: 19924 Subs Hosp L1
[2024-05-05 12:48] VITALS: BP 111/57; PULSE 63
[2024-05-05] MEDS: 0.9% Saline Lock 10 ML Syringe IV (17:04)
[2024-05-05 17:36] VITALS: BP 160/70; PULSE 66; RESP 16; TEMP 36.6; O2SAT 96
[2024-05-05] MEDS: Mirtazapine 15 MG Tablet PO (20:23)
[2024-05-06 06:00] VITALS: BP 121/50; PULSE 55; RESP 16; TEMP 37.1; O2SAT 92
[2024-05-06 06:35] VITALS: BMI 25.7
[2024-05-06] MEDS: Menthol/Lanolin/Calamine/Znox 113 GM Tube 1 APPLIC TOPICAL ×2 (08:01→22:08)
[2024-05-06] MEDS: Pantoprazole Sodium 40 MG Tablet PO ×2 (08:01→22:08)
[2024-05-06] MEDS: Gabapentin 100 MG Capsule PO ×2 (08:01→16:36)
[2024-05-06] MEDS: Midodrine HCl 5 MG Tablet 10 MG PO ×4 (08:02→22:07)
[2024-05-06] MEDS: 0.9% Saline Lock 10 ML Syringe IV ×2 (16:39→22:17)
[2024-05-06 18:00] VITALS: BP 109/53; PULSE 62; RESP 16; TEMP 36.4; O2SAT 94
[2024-05-06 21:55] VITALS: BP 160/68; PULSE 68; RESP 18; O2SAT 95
[2024-05-06 22:00] VITALS: O2SAT 95
[2024-05-06] MEDS: Mirtazapine 15 MG Tablet PO (22:08)
[2024-05-06] MEDS: Senna/Docusate Sodium 1 Tablet 2 TABLET PO (22:19)
[2024-05-07 00:45] VITALS: BP 150/65; PULSE 52; RESP 18; O2SAT 93
[2024-05-07 06:00] VITALS: BP 120/61; PULSE 52; RESP 17; TEMP 37.2; O2SAT 92; BMI 25.7
[2024-05-07] MEDS: Midodrine HCl 5 MG Tablet 10 MG PO ×3 (08:00→16:25)
[2024-05-07] MEDS: Senna/Docusate Sodium 1 Tablet 2 TABLET PO ×2 (08:17→21:35)
[2024-05-07] MEDS: Pantoprazole Sodium 40 MG Tablet PO ×2 (08:17→21:36)
[2024-05-07] MEDS: Menthol/Lanolin/Calamine/Znox 113 GM Tube 1 APPLIC TOPICAL ×2 (08:18→21:37)
[2024-05-07] MEDS: Gabapentin 100 MG Capsule PO ×2 (08:18→16:24)
[2024-05-07 17:45] VITALS: BP 148/67; PULSE 52; RESP 16; TEMP 36.8; O2SAT 94
[2024-05-07] MEDS: Mirtazapine 15 MG Tablet PO (21:36)
[2024-05-08 05:14] VITALS: BP 109/57; PULSE 57; RESP 15; TEMP 36.6; O2SAT 94
[2024-05-08 05:15] VITALS: BMI 23.9
[2024-05-08] MEDS: Gabapentin 100 MG Capsule PO ×2 (07:51→16:33)
[2024-05-08] MEDS: Polyethylene Glycol 3350 17 GM PACKET PO (07:52)
[2024-05-08] MEDS: Midodrine HCl 5 MG Tablet 10 MG PO ×3 (07:52→16:32)
[2024-05-08] MEDS: Menthol/Lanolin/Calamine/Znox 113 GM Tube 1 APPLIC TOPICAL ×2 (07:53→20:34)
[2024-05-08] MEDS: Pantoprazole Sodium 40 MG Tablet PO ×2 (07:53→20:36)
[2024-05-08] MEDS: Senna/Docusate Sodium 1 Tablet 2 TABLET PO (07:53)
[2024-05-08 09:37] VITALS: BP 83/39; PULSE 60
--- NOTE | 2024-05-08 09:56 | PN_ITS ---
Subjective Subjective Milan was seen on team rounds today. Afebrile VSS -over the weekend the blood pressure has ranged from 109/57 to 160/68. The heart rate has ranged from 52-68. The OT notes state he felt lightheaded today toward the end of his session with therapy and BP was 66/29. OT started with him at 0812 today. He does not get Midodrine until 0800. Maintaining appropriate oxygen saturation on RA Oral intake - FOOD highly variable intake. FLUIDS fluid intake has improved. Yesterday he took 1670 and then had 1400 out for a fluid balance of 270. Discussed with nursing - no problems that need addressed Reviewed the THERAPY notes - refused speech therapy today. Did not get in all his time with OT. OT reports that the R shoulder is very close to subluxing. Medication list reviewed. Not taking anything for pain. When I asked him why he was not doing therapy today.......he told me that he feels they are make him do things that are silly. He complains that ST is not helping.......he is still having trouble swallowing. He refused ST today. Continues to c/o numbness in his hands. OT had him taking apart a jigsaw puzzle and putting the pieces in a bag.......he says this was hard to do and silly. When I pointed out this activity works on hand strength, dexterity and coordination he just said I don't know. He answers most questions with I don't know. Denies pain. The only thing he c/o is numbness and his muscles not working. Seems to be under the impression that surgery should have fixed this. Once again I discussed with him and his ex- that with prolonged compression of the spinal cord sometimes the numbness and weakness will be permanent. The surgery hopefully prevents the neurologic deficits from progressing. We have discussed this on more than 1 occasion since he arrived on rehab. Ex- wonders why he is having a BP problem now and he did not before........I pointed out that no one was checking his BP when standing and that the recurrent falls and lightheadedness could certainly have been due to orthostatic hypotension. I also pointed out that he did not have a Quigley but, he was urinating every 30-60 minutes, getting up multiple times at night to urinate, dribbling after urination and having hesitancy when trying to start his stream which was very slow. these are all signs of obstructive uropathy.....which could be due to BPH or neurogenic bladder. Objective Data Objective Data Vital Signs: Vital Signs Temp Pulse Resp BP Pulse Ox O2 Del Method 97.9 F 57 L 15 109/57 L 94 Room Air 05/08/24 05:14 05/08/24 05:14 05/08/24 05:14 05/08/24 05:14 05/08/24 05:14 05/08/24 05:14 Oxygen Delivery Method Room Air Weight: 158 lb 1.143 oz Body Mass Index (BMI) 23.9 Intake & Output: Intake and Output for Last 24 Hours 05/06/24 05/07/24 05/08/24 23:59 23:59 23:59 Intake Total 1490 / 1490 1670 / 1670 450 / 450 Output Total 2875 / 2875 1400 / 1400 900 / 900 Balance -1385 / -1385 270 / 270 -450 / -450 Lab / Micro Data 05/04/24 07:15 05/04/24 07:15 Micro: Microbiology 04/27/24 22:05 Urine Catheter - Catheter Urine Culture - Final Culture exhibits no growth. 04/29/24 22:20 Stool Stool Occult Blood (JERMAINE) - Final Physical Exam Const no apparent distress Constitutional Narrative: Flat affect. Not cooperating with therapy. apathetic. Neck Neck Narrative: He is in a rigid cervical collar. Resp clear to auscultation bilaterally Effort and Inspection: able to speak in complete sentences; Negative for tachypneic Cardio regular rate, regular rhythm and no gallops Cardio Narrative: No ectopy GI normal to inspection, nondistended, normoactive bowel sounds, soft to palpation and non-tender GI Narrative: No guarding with palpation. Positive ventral hernia. Having regular BM's but, is incontinent of stool and can not feel when he is having a BM. Extremity no calf tenderness Skin General Skin Exam: no breakdown Rashes: no rashes Wound Narrative: Has bruising of the anterior neck. Incision is intact with no dehiscence. No DC from the wound and no leon-incisional erythema. 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: QUALIFIERS: Encounter type: subsequent encounter Qualified Code(s): S06.9X9D - Unspecified intracranial injury with loss of consciousness of unspecified duration, subsequent encounter (10) Left maxillary fracture: QUALIFIERS: Encounter type: subsequent encounter Fracture type: c losed (11) Dysphagia: QUALIFIERS: Dysphagia type: pharyngeal phase Qualified Code(s): R 13.13 - Dysphagia, pharyngeal phase (12) Bilateral arm weakness: (13) Postural dizziness with near syncope: (14) Severe dehydration: (15) Orthostatic hypotension: (16) Urine retention: (17) GERD with esophagitis: QUALIFIERS: Esophagitis bleeding: without hemorrhage Qualified Code(s): K21.00 - Gastro-esophageal reflux disease with esophagitis, without bleeding (18) History of IBS: (19) Anxiety and depression: PLAN: Plan 1. Continue therapy. I reminded him that if he can not do 3 hours of therapy he will have to be down graded. I asked him to think about may he may want to go at DC from therapy. 2. Encouraged him to increase fluid intake to 2 Liters per day. 3. Can not use Flomax due to severe orthostatic hypotension.......despite Midodrine. TSH and Cortrosyn stim test are normal. Had sx of urinary tract obstruction long before recent surgery. Will need to follow up with urology following DC from rehab. 4. Change the dosing of the Midodrine to 0700, 1100 and 1500.....therapy starts early in the morning here and it is likely the hypotension with OT today was related to therapy starting shortly after the AM dose of Midodrine. 5. Continue Gabapentin - no longer c/o burning pain in the legs since this was started. 6. His psychiatric problems impair his ability to do therapy. He needs a psychiatrist to optimize medication and therapy......this will not happen while he is on inpt rehab. It can happen when he is transferred to SNF. 7. Reinforced that we need him to participate in therapy. If he is unable to do 3 hours over the next 72 hours will need to downgrade to an SNF. SW gave him and his a list of local SNF's to choose from. Charges/Coding Visit Charges Inpatient E&M: 06538 Subs Hosp L2
[2024-05-08 10:00] VITALS: O2SAT 97
--- NOTE | 2024-05-08 10:23 | CASEMGMT ---
Social Work notified this worker that pt refused ST and OT full participation in sessions this date. spoke with pt about the need to participate or pt will need to be DC'd. Though, regardless, pt will need to DC to a SNF as he is not going to be a level of independence to return home alone and no assistance. - AGAPITO spoke with pt at bedside. Engaged pt in his perspective of recovery, progress, participation and benefit of therapy sessions. Discussed pt's goals in therapy and recovery. Pt expressed not making as much progress as I'd like. I do what they ask me, for the most part. But sometimes they ask me to do silly things. Pt stated his primary goal is walking so he can be independent. SW provided active listening. SW validated pt's feelings of frustration and lack of progress can be discouraging. SW explained the other tasks asked from therapy contribute to independence and walking. Such as core strength to stand up straight, arm and hand strength to hold a walker. Assisted pt in gaining bigger perspective to therapy tasks, such as swallowing exercises are to prevent pt from needing a feeding tube, voice exercises are to allow pt to call 911 for help, etc; puzzles in OT for hand eye coordination assist with pushing a centerless grinder tender and driving a car. SW explained the phrase use it or lose. Pt stated I have heard that more times this month. SW explained that is the goal of therapy, and acknowledged it will be a journey, the pt holds the power to the progress. Pt admitted fault to not caring for himself how he should have been up until this point. SW praised pt for acknowledgement and encouraged pt to change mindset to be positive and motivated to improve. Encouraged pt to follow recommendations of professionals during stay, as their goal is to help pt, as pt noted he did not follow the recommendations prior. Pt agreed. SW emphasized the pt is in control of his progress, using the metaphor, you can lead the horse to water but you cannot make them drink. Pt agreed. SW explained if he cannot participate in upcoming therapy sessions, he will be discharged prior to 05/20, as Medicare will not continue to cover pt's stay. Explained his participation also impacts Medicare coverage at a SNF, as well. Pt stated he cannot afford a SNF. SW encouraged ongoing participation and let that be a motivator, if nothing else. Pt agreed. SW offered list of SNFs in preferred geographical area, INN with pt?s insurance, including quality and resource data via [employer]. Pt to share with ex- to review choices and notify this worker. SW will continue to follow to assist with DC planning and support. Offered ongoing visits with pt. Pt appreciative. Pamela Jacobs MANAGER PRODUCT DESIGN WAITER/WAITRESS BUFFET
--- NOTE | 2024-05-08 12:40 | CASEMGMT ---
Social Work IDT met with patient and ex- for Team meeting. Discussed patient's progress in PT/OT/ST/SN. Confirmed Medicare approval with DC 05/20. Reiterated previous conversation that if pt does not participate in therapy, pt will be DC'd prior. It would also impact Medicare coverage at a SNF. Pt confirmed understanding. SW offered to refer to SNFs once pt selects preferences. Answered questions for ex-. Pt did apologize to team for his attitude. Will ReTeam next week. SW will continue to follow for DC planning and support. Pamela Jacobs WELLNESS PROGRAM ADMINISTRATOR TEACHING PASTOR
[2024-05-08 17:29] VITALS: BP 96/53; PULSE 58; RESP 17; TEMP 36.1; O2SAT 96
[2024-05-08] MEDS: Mirtazapine 15 MG Tablet PO (20:34)
[2024-05-09 06:00] VITALS: BP 102/62; PULSE 59; RESP 14; TEMP 36.6; O2SAT 94; BMI 23.8
[2024-05-09] MEDS: Midodrine HCl 5 MG Tablet 10 MG PO ×3 (06:19→16:07)
[2024-05-09] MEDS: Senna/Docusate Sodium 1 Tablet 2 TABLET PO ×2 (08:51→20:33)
[2024-05-09] MEDS: Polyethylene Glycol 3350 17 GM PACKET PO (08:51)
[2024-05-09] MEDS: Gabapentin 100 MG Capsule PO ×2 (08:51→16:07)
[2024-05-09] MEDS: Pantoprazole Sodium 40 MG Tablet PO ×2 (08:51→20:33)
[2024-05-09] MEDS: Menthol/Lanolin/Calamine/Znox 113 GM Tube 1 APPLIC TOPICAL ×2 (08:51→20:32)
--- NOTE | 2024-05-09 10:35 | SP.MBSS_ITS ---
Modified Barium Swallow Patient Information Study Date: 05/09/24 Study Time: 10:00 Direct Billable Minutes: 120 Total Minutes procedure & reportin Diagnosis: Pharyngeal dysphagia Referring Physician: Corazon Wright Medical History: The patient presented to [facility] ED 04/19/2024 after a fall at home w/ lightheadedness. He reports several falls in the past 6 months w/ lightheadedness and near syncope. In the ED, he had weakness of the L arm, an occipital scalp hematoma and bruising/hematoma of the left face. He denied TORRES but, he complained of neck pain. He had a fall a few weeks prior and broke his nose. A NC CTB was obtained. It did not show any acute findings other than a Left maxillary fx and fluid in the Left maxillary sinus. CTA head and neck show ed no significant areas of stenosis and no more than special occlusion. No aneurysms or large vascular malformations. MRI was ordered and showed no acute intracranial abnormality, specifically no evidence of acute ischemia. MRI of the cervical spine showed acquired multilevel spinal stenosis, severe at C3-C4 and C4-C5. There was mild to severe multilevel foraminal narrowing. There was myelomalacia at the level of C4 and C5 likely related to severe spinal canal stenosis. Orthopedics consulted. Dr. Diego noted that the patient had preoperative baseline dysphagia. On 04/26/2024, the patient underwent C3-6 anterior cervical decompression/discectomy and fusion. Post operatively dysphagia increased. ST not consulted during patient's acute stay. The patient was transferred to inpatient rehab for PT, OT, and ST. ? He underwent a FEES on 05/02/24 which revealed Moderate pharyngeal dysphagia w/ recommendation for Minced and Moist Textures and Thin Liquids, Medication Administration: Crushed in puree, Compensatory Strategies: Sips 1 at a time, double swallow w/ solids (minced/moist textures), Small Bites, Small Sips, Slow Rate, Multiple Swallows, Alternate bites/solids and sips/liquids, Sitting upright and Remain sitting upright for 30 minutes after PO intake. Per FEES report, a MBSS w/ esophageal screening was recommended to assess concerns for esophageal dysphagia given hx of GERD w/ esophagitis and retrograde flow of sequential thin through UES during FEES. ? The patient was downgraded to pureed textures at bedside d/t reports of diet intolerance w/ pharyngeal stasis/globus sensation. Current Diet Ordered: puree/thin Mental Status: WNL Respiratory Status: Oxygenating on Room Air Penetration-Aspiration Scale Penetration-Aspiration Scale: OBJECTIVE ASSESSMENT OF SWALLOW FUNCTION (QUANTITATIVE ? PER TRIAL): PENETRATION / ASPIRATION SCALE (CAR): 1 = does not enter airway 2 = enters airway/above vocal folds/ejected 3 = enters airway/above vocal folds/not ejected 4 = enters airway/contacts vocal folds/ejected 5 = enters airway/contacts vocal folds/not ejected 6 = enters airway/below vocal folds/ejected 7 = enters airway/below vocal folds/not ejected despite effort 8 = enters airway/below vocal folds/no effort VIDEOFLOROSCOPIC SCALE SCORE (CAR): Grade I = aspiration of material that has penetrated into the laryngeal vestibule, intact cough reflex Grade II = aspiration < 10 % of the bolus, intact cough reflex Grade III = aspiration of < 10 % of the bolus, reduced cough reflex or aspiration of > 10 % of the bolus, intact cough reflex Grade IV = aspiration of > 10 % of the bolus, reduced cough reflex Penetration-Aspiration Scale Score Thin Liquid via teaspoon: Result: 8= enters airway/below vocal folds/no effort Thin Liquid via teaspoon Trial 2: Result: 3= enters airways/above vocal folds/not ejected Thin Liquid via small single sip: cup: Result: 8= enters airway/below vocal folds/no effort Thin Liquid via small single sip: cup Trial 2: Result: 7= enters airways/below vocal folds/not ejected despite effort Thin Liquid via single sip: straw: Result: 8= enters airway/below vocal folds/no effort [place] Thick Liquid via teaspoon: Result: 2= enter airway/above vocal folds/ejected [place] Thick Liquid via small single sip: cup: Result: 3= enters airways/above vocal folds/not ejected Honey Thick Liquid via small single sip: cup: Result: 2= enter airway/above vocal folds/ejected Pudding via teaspoon: Result: 1= does not enter airway Cookie: Result: 1= does not enter airway Comment: 02/15 of cookie trialed Thin Liquid via single sip: straw Trial 2: Result: 3= enters airways/above vocal folds/not ejected Thin Liquid via single sip: straw Trial 3: Result: 2= enter airway/above vocal folds/ejected [place] Thick Liquid via single sip: straw: Result: 1= does not enter airway [place] Thick Liquid via single sip: straw Trial 2: Result: 3= enters airways/above vocal folds/not ejected Honey Thick Liquid via single sip: straw: Result: 3= enters airways/above vocal folds/not ejected Oral Phase Labial Seal: Escape progressing to mid-chin Tongue Control During Bolus Hold: Cohesive bolus between tongue to palatal seal Bolus Preparation/Mastication: Slow prolonged chewing/mashing with complete recollection Bolus Transport/Lingual Motion: Slowed tongue motion Oral Residue: Residue collection on oral structures Pharyngeal Phase Initiation of Pharyngeal Swallow: Bolus head at posterior laryngeal surgace of epiglottis Soft Palate Elevation: No bolus between soft palate and pharyngeal wall Laryngeal Elevation: Partial superior movement thyroid cart/partial apprx aryt- epig petiole Anterior Hyoid Excursion: Partial anterior movement Epiglottic Movement: Complete inversion Laryngeal Vestibule Closure at Height of Swallow: Incomplete; narrow column of air/contrast in laryngeal vestibule Pharyngeal Stripping Wave: Present - diminished Pharyngoesophageal Segment Opening: Parital distension and partial duration; parital obstruction of flow Tongue Base Retraction: Narrow column of contrast between tongue base & post. pharyngeal wall Pharyngeal Residue: Collection of residue within or on pharyngeal structures Esophageal Phase Esophageal Clearance: Esophageal retention Treatment Strategies Effects of treatment strategies attemped:: * Unable to trial compensatory postural strategies d/t neck collar precluding ROM. * Attempted hard effortful swallow w/ thin - not effective. * A cued cough and reswallow was effective to eject contrast from the laryngeal vestibule, but not the trachea. Diagnosis/Impression Diagnosis: moderate oropharyngeal dysphagia Impression: The oral phase is characterized by... * slowed mastication * cohesive bolus formation * slowed lingual motion for AP bolus transportation * spillage of liquids over the tongue base The pharyngeal phase is characterized by... * mildly delayed swallow onset w/ the liquid boluses reaching the posterior laryngeal surface of the epiglottis prior to swallow onset * incomplete hyolaryngeal excursion resulting in incomplete laryngeal vestibule closure resulting in penetration across all liquid consistencies and primarily SILENT ASPIRATION of thin liquids (one instance of weak and ineffective cough in response to aspirate) * small sips by straw were effective to eliminate * contrast lined the pharyngeal structures (worse w/ pudding/cookie than w/ liquids), a second swallow was partially effective to ameliorate the residue The esophageal phase is characterized by... * contrast retention noted at the C6-7 level, suspicious for diverticulum * trace-mild retrograde flow of contrast from the esophagus into the pyriforms Recommendations Diet: Puree Textures and Mildly Thick Liquids Comment: OK for TRIPP WATER Compensatory Strategies: Small Bites, Small Sips, Sips by straw only, Multiple Swallows, Sitting upright and Remain sitting upright for 30 minutes after PO intake Supervision: Assist as needed Recommend Repeat Modified Barium Swallow: Yes Need for Skilled Speech Therapy Services: Yes Recommended Referrals: GI Consult (esophageal retention w/ retrograde flow through the PES) Education Completed: 1. Described result of evaluation. and 2. Pt understands evaluation & agrees with goals and treatment plan. Status Active ST Patient: Active Contact Information [facility] Speech Therapy:: Lalita Grande M.A. SEISMOGRAPHER Speech-Language Pathologist [id number] [place] [address] [phone]
--- NOTE | 2024-05-09 10:35 | PCM.PROGNOTE ---
Subjective Subjective Afebrile VSS -blood pressure this a.m. was 102/62 with a heart rate of 59. Maintaining appropriate oxygen saturation on RA-94 to 97%. Oral intake - FOOD food intake is improving. He ate 50 to 100% of his last 6 meals. FLUIDS good. Fluid intake yesterday was 1960. Urine output was 1504 a positive fluid balance of 460 mL. Has had 3 postvoid residuals since the Quigley catheter was discontinued yesterday a.m. The first was 243 cc and the postvoid residual at 3:30 AM today was 51. Discussed with nursing - no problems that need addressed Reviewed the THERAPY notes Medication list reviewed. Denies pain. He gets lightheaded in the AM when first getting out of bed but, after the Midodrine it improves. Tolerated therapy and MBS today with no lightheadedness. Slept well last night. Appetite and intake has picked up. Denies chest pain, shortness of breath, palpitations, nausea/vomiting/abdominal pains/abdominal cramping, dysuria and calf pain. Still having some difficulty with swallowing. Tells me that he did not have nocturia last night. Reviewed the MBS report. Diagnosed with moderate oropharyngeal dysphagia. He had incomplete laryngeal vestibule closure resulting in penetration across all liquid consistencies and primarily silent aspiration of thin liquids. Contrast retention was noted at C6-C7 level suspicious for a diverticulum. There was trace to mild retrograde flow of contrast from the esophagus into the piriforms. Speech therapy recommended pur?ed textures and mildly thickened liquids. Will need to keep after him to maintain good fluid intake. He can have Villegas water. Objective Data Objective Data Vital Signs: Vital Signs Temp Pulse Resp BP Pulse Ox O2 Del Method 97.9 F 59 L 14 102/62 94 Room Air 05/09/24 06:00 05/09/24 06:00 05/09/24 06:00 05/09/24 06:00 05/09/24 06:00 05/09/24 06:00 Oxygen Delivery Method Room Air Weight: 157 lb 10.088 oz Body Mass Index (BMI) 23.8 Intake & Output: Intake and Output for Last 24 Hours 05/07/24 05/08/24 05/09/24 23:59 23:59 23:59 Intake Total 1670 / 1670 1959 / 1959 320 / 320 Output Total 1400 / 1400 1500 / 1500 300 / 300 Balance 270 / 270 460 / 460 20 / 20 Lab / Micro Data 05/04/24 07:15 05/04/24 07:15 Micro: Microbiology 04/27/24 22:05 Urine Catheter - Catheter Urine Culture - Final Culture exhibits no growth. 04/29/24 22:20 Stool Stool Occult Blood (JERMAINE) - Final Physical Exam Const alert and no apparent distress Constitutional Narrative: Much more engaged today when talking with me. Voice is projecting much better and he is making good eye contact with me. He is asking appropriate questions. Has been cooperative with therapy. Sitting in the recliner at the bedside when I entered the room. General Appearance: cooperative HEENT Mouth: dry mucous membranes Resp normal respiratory effort, normal air movement and clear to auscultation bilaterally Effort and Inspection: Negative for tachypneic Cardio regular rate, regular rhythm and no gallops GI normal to inspection, nondistended, normoactive bowel sounds, soft to palpation and non-tender Extremity no calf tenderness General Extremity: Negative for edema Skin Wound Narrative: The incision is healing with no dehiscence. There is bruising but, no erythema of the anterior neck. [place] J collar is in place. Psych Psych Narrative: Much more engaged today. voice is projecting well. More expression on his face and asking appropriate questions. 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 (11) Bilateral arm weakness: PLAN: Left arm is flaccid. Has paresthesias of both hands. (12) Postural dizziness with near syncope: (13) Orthostatic hypotension: (14) Severe dehydration: PLAN: resolved. (15) Urine retention: PLAN: Resolved. NOT on Flomax due to severe orthostatic hypotension but, passed a voiding trial on 05/08/24. (16) GERD with esophagitis: QUALIFIERS: Esophagitis bleeding: without hemorrhage Qualified Code(s): K21.00 - Gastro-esophageal reflux disease with esophagitis, without bleeding (17) Laryngeal edema: PLAN: With cobblestoning of the posterior pharynx. Possible diverticulum and suspected esophageal dysmotility. Continue Protonix 40 mg BID and recommend follow up with Dr. Austin following DC from rehab. (18) History of IBS: (19) Anxiety and depression: PLAN: Tolerating Remeron at 15 mg Q HS with no adverse SE's. Would increase to 22.5 mg Q HS on Wednesday or Wednesday if he continues to tolerate. Appetite and intake are better and he is sleeping well at night now. PLAN: Plan 1. Continue therapy 2. Change diet to pur?ed textures and mildly thickened liquids with Villegas water protocol 3. Check a CBC and BMP on . 4. Continue Remeron at 15 mg p.o. nightly. Consider increasing the dose to 22.5 mg nightly early next week. Highly recommend psychiatry/psychotherapy following transfer to SNF on 05/20/2024. 5. Continue Protonix 40 mg p.o. twice daily for reflux esophagitis/laryngeal edema secondary to chronic free-flowing reflux. Recommend follow-up with gastroenterology postdischarge from rehab for evaluation for reflux esophagitis/esophageal diverticulum and esophageal dysmotility. Charges/Coding Visit Charges Inpatient E&M: [id number] [facility] L1
[2024-05-09 12:48] VITALS: BP 118/39; BP 152/58; BP 96/66; PULSE 60; PULSE 62; PULSE 69
[2024-05-09] MEDS: Ensure Plus High Protein 120 ML LIQUID PO ×3 (13:48→22:28)
[2024-05-09 17:23] VITALS: BP 129/58; PULSE 60; RESP 17; TEMP 36.6; O2SAT 97
[2024-05-09] MEDS: Mirtazapine 15 MG Tablet PO (20:33)
[2024-05-09 22:00] VITALS: PULSE 60; RESP 17; O2SAT 96
[2024-05-10 06:00] VITALS: BP 110/63; PULSE 69; RESP 16; TEMP 36.8; O2SAT 95; BMI 23.6
[2024-05-10] MEDS: Midodrine HCl 5 MG Tablet 10 MG PO ×3 (06:37→15:06)
[2024-05-10] MEDS: Pantoprazole Sodium 40 MG Tablet PO ×2 (07:58→20:13)
[2024-05-10] MEDS: Senna/Docusate Sodium 1 Tablet 2 TABLET PO ×2 (07:58→20:14)
[2024-05-10] MEDS: Polyethylene Glycol 3350 17 GM PACKET PO (07:58)
[2024-05-10] MEDS: Menthol/Lanolin/Calamine/Znox 113 GM Tube 1 APPLIC TOPICAL ×2 (07:59→20:11)
[2024-05-10] MEDS: Ensure Plus High Protein 120 ML LIQUID PO ×4 (07:59→20:13)
[2024-05-10] MEDS: Gabapentin 100 MG Capsule PO ×2 (08:00→17:06)
[2024-05-10 12:03] LABS: Mucous, Urine 0 SEEN /hpf (<or=2+); Squamous Epithelial Cells - UA 0 SEEN /hpf (0-5)
[2024-05-10 12:10] LABS: Color, Urine Yellow (Yellow); Glucose, Dipstick Normal (Normal); Ketone-Dipstick Negative (Negative); Leukocyte Esterase-Dipstick 500 /ul (Negative); Nitrite-Dipstick Positive (Negative); Occult Blood-Urine 250 /ul (Negative); Protein-Dipstick 500 mg/dl (Negative); Specific Gravity, Urine 1.015 (1.002-1.030); Urine Bilirubin Dipstick Negative (Negative); Urine Clarity Sl. Cloudy (Clear); Urine Urobilinogen Normal (Normal)
[2024-05-10 12:32] LABS: Bacteria 2+ /hpf (None Seen); Red Blood Cells-Urine 10-25 SEEN /hpf (0-5); White Blood Cells 25-50 SEEN /hpf (0-5)
--- NOTE | 2024-05-10 15:00 | RAD_ITS ---
PROCEDURE: CERV SPINE 2 OR 3 VIEWS 05/10/2024 REASON FOR EXAM: 83-year-old male, F/U CERVICAL PAIN/SURGERY; AP/LAT UPRIGHT FILMS TECHNIQUE: 2 views of the cervical spine. COMPARISON: C-spine radiographs 04/2024. FINDINGS: Vertebrae: Stable ACDF hardware and intervertebral disc spacers at C3-6. Diffuse osseous demineralization. No acute osseous fracture. Disc spaces: Moderate degenerative disc disease at C6-7. Alignment: No traumatic listhesis. Soft tissues: Grossly unremarkable. Interval drainage catheter removal. Other: The upper lungs are grossly unremarkable. RAD/Cerv Spine 2 or 3 Views IMPRESSION: Stable ACDF hardware. No acute fracture or traumatic listhesis. Reading Location: [id number]
[2024-05-10] MEDS: Ciprofloxacin 250 MG Tablet PO ×2 (15:06→20:12)
--- NOTE | 2024-05-10 17:31 | PN.REHAB_ITS ---
Subjective Subjective Patient seen, examined. He seems a little down, he is progressing slowly with therapy. He c/o dysuria with nursing staff today, urinalysis sent, urine culture pending. Objective Data Objective Data Vital Signs: Vital Signs Temp Pulse Resp BP Pulse Ox O2 Del Method 98.3 F 69 16 110/63 95 Room Air 05/10/24 06:00 05/10/24 06:00 05/10/24 06:00 05/10/24 06:00 05/10/24 06:00 05/10/24 06:00 Oxygen Delivery Method Room Air Weight: 70.8 kg Body Mass Index (BMI) 23.6 Intake & Output: Intake and Output for Last 24 Hours 05/08/24 05/09/24 05/10/24 23:59 23:59 23:59 Intake Total 1960 / 1960 1390 / 1390 360 / 360 Output Total 1500 / 1500 650 / 750 320 / 320 Balance 460 / 460 740 / 640 40 / 40 Lab / Micro Data Attestation: I reviewed the patient's lab results. 05/04/24 07:15 05/04/24 07:15 Labs: Laboratory Results - last 24 hr 05/10/24 11:50: Urine Color Yellow, Urine Clarity Sl. Cloudy, Urine pH 6.0, Ur Specific [place] 1.015, Urine Protein 500 H, Urine Glucose (UA) Normal, Urine Ketones Negative, Urine Occult Blood 250 H, Urine Nitrite Positive H, Urine Bilirubin Negative, Urine Urobilinogen Normal, Ur Leukocyte Esterase 500 H, Urine RBC 10-25 SEEN, Urine WBC 25-50 SEEN, Ur Squamous Epith Cells 0 SEEN, Urine Bacteria 2+, Urine Mucus 0 SEEN Micro: Microbiology 04/27/24 22:05 Urine Catheter - Catheter Urine Culture - Final Culture exhibits no growth. 04/29/24 22:20 Stool Stool Occult Blood (JERMAINE) - Final Radiography Diagnostic Testing: Radiology Impression Cervical Spine X-Ray 05/10/24 15:00 IMPRESSION: Stable ACDF hardware. No acute fracture or traumatic listhesis. Reading Location: [facility] Indicators for Scoring Admitted with or Primary Diagnosis of CVA/Stroke: No Hx of CVA/Stroke: No Physical Exam Const alert General Appearance: cooperative HEENT normocephalic Eyes PERRL and EOMs intact bilaterally Neck supple, no JVD and no carotid bruits Resp normal respiratory effort, normal air movement and clear to auscultation bilaterally Cardio regular rate and regular rhythm GI normal to inspection, nondistended, normoactive bowel sounds, non-tender and non-distended Extremity normal capillary refill General Extremity: Negative for edema Skin no rashes or lesions noted General Skin Exam: no breakdown Neuro Neuro Narrative: Weakness in all extremities. Psych affect normal Appearance: appropriate Assessment & Plan Assessment/Plan (1) Debility: (2) Multiple falls: (3) Cervical stenosis of spinal canal: (4) Dysphagia: QUALIFIERS: Dysphagia type: pharyngeal phase Qualified Code(s): R 13.13 - Dysphagia, pharyngeal phase (5) Anxiety: (6) BPPV (benign paroxysmal positional vertigo): (7) Osteoarthritis: (8) Muscle spasm: (9) Orthostatic hypotension: (10) GERD (gastroesophageal reflux disease): (11) BPH (benign prostatic hyperplasia): (12) Urinary tract infection: PLAN: Plan 83 year old male with below past medical history hospitalized for multiple falls 2/2 cervical spinal stenosis, underwent c3-6 acdf 05/06/[address] Diego, admitted to for 3 hours daily rehabilitatin, strengthening, prior to disposition determination. * Debility - PT/OT. * Dysphagia - ST. * Pain - Tylenol 1000mg q8 prn, Oxycodone 2.5mg - 5mg q4h prn. * Bowel - Miralax 17gm daily, senna/colace 2 tablets bid, Dulcolax 10mg pr x 1 prn, MOM 30mL po x 1 prn. * Sore throat - Cepacol 1 lozenge q2h prn. * Dry eyes - Artificial tears 2gtt ou q1h prn. * UTI - Quigley discontinued yesterday, urinalysis c/w uti, urine culture pending, Cipro 250mg bid x 7 days. * Nutrition - Ensure Plus 120mL 4x/day. * Neuropathic pain - Gabapentin 100mg bidcm. * Skin irritation - Calmoseptine topical bid. * Orthostatic hypotension - Midodrine 10mg tid. * Depression/Insomnia/appetite loss - Mirtazapine 15mg qhs. * GERD - Pantoprazole 40mg bid.
[2024-05-10 18:00] VITALS: BP 114/47; PULSE 60; RESP 16; TEMP 37.2; O2SAT 96
[2024-05-10] MEDS: Mirtazapine 15 MG Tablet PO (20:14)
[2024-05-10 22:00] VITALS: PULSE 60; RESP 16; O2SAT 96
[2024-05-11] MEDS: Midodrine HCl 5 MG Tablet 10 MG PO ×3 (05:29→15:55)
[2024-05-11 05:40] VITALS: BMI 23.7
[2024-05-11 06:00] VITALS: BP 101/53; PULSE 61; RESP 16; TEMP 36.4; O2SAT 96
[2024-05-11 06:39] LABS: Hematocrit 36.7 % (40-54); Hemoglobin 12.3 g/dL (13.0-16.5); Mean Corp Hgb Conc 33.5 g/dL (32-36); Mean Corpuscular Hgb 29.9 pg (27.0-32.0); Mean Corpuscular Volume 89.1 fL (80-94); Mean Platelet Vol. 8.8 fl (6.2-12.0); Platelet Count 232 K/mm3 (150-450); RBC Distribution Width CV 12.8 % (11.6-14.6); RBC Distribution Width SD 41.8 fl (35.1-43.9); Red Blood Count 4.12 M/mm3 (4.6-6.2); White Blood Count 9.9 K/mm3 (4.4-11.0)
[2024-05-11 06:48] LABS: Anion Gap 10 (5-15); BUN 34 mg/dL (4-19); BUN/Creat Ratio 35.5 RATIO (10-20); Calcium,Total 8.6 mg/dL (7.6-11.0); Carbon Dioxide 23.4 mmol/L (21.0-32.0); Chloride 104 mmol/L (98-108); Creatinine, Serum 0.96 mg/dL (0.70-1.20); EST Glomerular Filtration Rate 79 (>60); Glucose 116 mg/dL (70-99); Potassium 4.5 mmol/L (3.3-5.1); Sodium Level 137 mmol/L (133-145)
[2024-05-11] MEDS: Senna/Docusate Sodium 1 Tablet 2 TABLET PO ×2 (08:41→20:05)
[2024-05-11] MEDS: Gabapentin 100 MG Capsule PO ×2 (08:41→17:34)
[2024-05-11] MEDS: Ciprofloxacin 250 MG Tablet PO ×2 (08:41→20:05)
[2024-05-11] MEDS: Pantoprazole Sodium 40 MG Tablet PO ×2 (08:41→20:05)
[2024-05-11] MEDS: Ensure Plus High Protein 120 ML LIQUID PO ×4 (08:42→20:04)
[2024-05-11] MEDS: Menthol/Lanolin/Calamine/Znox 113 GM Tube 1 APPLIC TOPICAL ×2 (08:42→20:01)
[2024-05-11] MEDS: Polyethylene Glycol 3350 17 GM PACKET PO (08:42)
--- NOTE | 2024-05-11 13:38 | CASEMGMT ---
Addendum entered by Pamela Jacobs 05/12/24 12:35: [facility] can accept. SW phoned Xwife to update. Xwife appreciative and will notify pt. Original Note: Social Work SW received call from ex- requesting referral to [facility]. Ex- unsure of additional options, but will review list again if they cannot accept. Xwife inquired about extending pt's stay. SW educated to appeal right option closer to date of DC. Xwife may consider. - AGAPITO sent referral to [facility] Pamela Jacobs ELECTRICIAN JOURNEYMAN WIREMAN COMB MACHINE OPERATOR
--- NOTE | 2024-05-11 14:26 | PN.ORTHO_ITS ---
Subjective Subjective Saw patient in [facility] today as a 2-week follow-up. Patient comfortable sitting in a chair with collar. Said that he has been doing physical therapy and has been walking with a walker but mentions only about 33 feet. Continues to have weakness in the left upper extremity. Has some dysphagia and is being followed by speech pathology. Denies any aspiration. Objective Data Objective Data Vital Signs: Vital Signs Temp Pulse Resp BP Pulse Ox O2 Del Method 97.6 F L 61 16 101/53 L 96 Room Air 05/11/24 06:00 05/11/24 06:00 05/11/24 06:00 05/11/24 06:00 05/11/24 06:00 05/11/24 10:00 Oxygen Delivery Method Room Air Weight: 156 lb 8.451 oz Body Mass Index (BMI) 23.7 Intake & Output: Intake and Output for Last 24 Hours 05/09/24 05/10/24 05/11/24 23:59 23:59 23:59 Intake Total 1390 / 1390 800 / 800 600 / 600 Output Total 650 / 750 420 / 420 Balance 740 / 640 380 / 380 600 / 600 Lab / Micro Data 05/11/24 06:03 05/11/24 06:03 Labs: Laboratory Results - last 24 hr 05/11/24 06:03: WBC 9.9, RBC 4.12 L, Hgb 12.3 L, Hct 36.7 L, MCV 89.1, MCH 29.9, MCHC 33.5, RDW Std Deviation 41.8, RDW Coeff of Delia 12.8, Plt Count 232, MPV 8.8, Sodium 137, Potassium 4.5, Chloride 104, Carbon Dioxide 23.4, Anion Gap 10, BUN 34 H, Creatinine 0.96, Estim Creat Clear Calc 57.40, Est GFR (MDRD) Non-Af 79, BUN/Creatinine Ratio 35.5 H, Glucose 116 H, Calcium 8.6 Micro: Microbiology 05/10/24 11:50 Urine Catheter - Catheter Urine Culture - Preliminary GNR lactose strawhat inspector and packer 04/27/24 22:05 Urine Catheter - Catheter Urine Culture - Final Culture exhibits no growth. 04/29/24 22:20 Stool Stool Occult Blood (JERMAINE) - Final Radiography Diagnostic Testing: Radiology Impression Cervical Spine X-Ray 05/10/24 15:00 IMPRESSION: Stable ACDF hardware. No acute fracture or traumatic listhesis. Reading Location: [facility] Physical Exam Narrative Examination the neck shows incision well-healed. Steri-Strips were removed and cleaned with alcohol swabs. Left open. Neurologic evaluation shows stable weakness in left upper extremity. Left elbow flexion is grade 1 mostly from brachioradialis. Shoulder abduction is weak on both sides. Lower extremity shows grade 4 strength at baseline. Assessment & Plan Assessment/Plan (1) Status post cervical spinal fusion: PLAN: Plan X-rays of cervical spine done yesterday show hardware and bone graft in good position. Prevertebral soft tissue shadow noticed. Okay to start weaning off the cervical collar over the next 1 to 2 weeks. This would involve removing the collar for about 1 to 2 hours during the day and then increasing the number of hours that he is out of the collar until he is completely weaned off for the next 2 weeks. Okay to start gentle neck range of motion exercises while he is off the collar. Appreciate speech pathology management. Agree with modified diet until dysphagia resolves. Continue PT OT as tolerated. Patient has significant weakness at baseline due to severe spinal cord compression. Explained to him that some of the function may not improve, but he should continue trying with physical therapy to get the highest level of function possible. Patient will see me back for his 6-week follow-up in a month in the clinic. Patient was in agreement.
[2024-05-11 17:28] VITALS: BP 128/63; PULSE 60; RESP 16; TEMP 37.1; O2SAT 96
[2024-05-11 19:50] VITALS: PULSE 60; RESP 16; O2SAT 96
[2024-05-11] MEDS: Mirtazapine 15 MG Tablet PO (20:05)
[2024-05-12 05:01] VITALS: BMI 23.8
[2024-05-12 05:02] VITALS: BP 101/60; PULSE 60; RESP 16; TEMP 36.8; O2SAT 95
[2024-05-12] MEDS: Midodrine HCl 5 MG Tablet 10 MG PO ×3 (06:38→14:37)
--- NOTE | 2024-05-12 08:02 | PN.REHAB_ITS ---
Subjective Subjective Patient seen, examined. Dr. Diego saw patient yesterday, starting to wean C- collar. Milan is eating breakfast in bed. He appears happier today, he is smiling. He is progressing with therapy, currently on pureed diet. Also being treated for uti, he says the burning with urination has improved. Objective Data Objective Data Vital Signs: Vital Signs Temp Pulse Resp BP Pulse Ox O2 Del Method 98.3 F 60 16 101/60 95 Room Air 05/12/24 05:02 05/12/24 05:02 05/12/24 05:02 05/12/24 05:02 05/12/24 05:02 05/12/24 05:02 Oxygen Delivery Method Room Air Weight: 71.5 kg Body Mass Index (BMI) 23.8 Intake & Output: Intake and Output for Last 24 Hours 05/10/24 05/11/24 05/12/24 23:59 23:59 23:59 Intake Total 800 / 800 870 / 870 240 / 240 Output Total 420 / 420 Balance 380 / 380 870 / 870 240 / 240 Lab / Micro Data 05/11/24 06:03 05/11/24 06:03 Micro: Microbiology 05/10/24 11:50 Urine Catheter - Catheter Urine Culture - Preliminary GNR lactose cage cashier 04/27/24 22:05 Urine Catheter - Catheter Urine Culture - Final Culture exhibits no growth. 04/29/24 22:20 Stool Stool Occult Blood (JERMAINE) - Final Indicators for Scoring Admitted with or Primary Diagnosis of CVA/Stroke: No Hx of CVA/Stroke: No Physical Exam Const alert General Appearance: cooperative HEENT normocephalic Eyes PERRL and EOMs intact bilaterally Neck supple, no JVD and no carotid bruits Neck Narrative: C-collar in place. Resp normal respiratory effort, normal air movement and clear to auscultation bilaterally Cardio regular rate and regular rhythm GI normal to inspection, nondistended, normoactive bowel sounds, non-tender and non-distended Extremity normal capillary refill General Extremity: Negative for edema Skin no rashes or lesions noted General Skin Exam: no breakdown Neuro Neuro Narrative: Left upper extremity weakness. Psych affect normal Appearance: appropriate Assessment & Plan Assessment/Plan (1) Debility: (2) Multiple falls: (3) Cervical stenosis of spinal canal: (4) Dysphagia: QUALIFIERS: Dysphagia type: pharyngeal phase Qualified Code(s): R 13.13 - Dysphagia, pharyngeal phase (5) Anxiety: (6) BPPV (benign paroxysmal positional vertigo): (7) Osteoarthritis: (8) Muscle spasm: (9) Orthostatic hypotension: (10) GERD (gastroesophageal reflux disease): (11) BPH (benign prostatic hyperplasia): (12) Urinary tract infection: PLAN: Plan 83 year old male with below past medical history hospitalized for multiple falls 2/2 cervical spinal stenosis, underwent c3-6 acdf 05/06/[address] Diego, admitted to for 3 hours daily rehabilitatin, strengthening, prior to disposition determination. * Debility - PT/OT. * Dysphagia - ST. * Pain - Tylenol 1000mg q8 prn, Oxycodone 2.5mg - 5mg q4h prn. * Bowel - Miralax 17gm daily, senna/colace 2 tablets bid, Dulcolax 10mg pr x 1 prn, MOM 30mL po x 1 prn. * Sore throat - Cepacol 1 lozenge q2h prn. * Dry eyes - Artificial tears 2gtt ou q1h prn. * UTI - Urine culture growing 50,000 to 80,000 gnr lactose cage cashier, Cipro 250mg bid x 7 days. * Nutrition - Ensure Plus 120mL 4x/day. * Neuropathic pain - Gabapentin 100mg bidcm. * Skin irritation - Calmoseptine topical bid. * Orthostatic hypotension - Midodrine 10mg tid. * Depression/Insomnia/appetite loss - Mirtazapine 15mg qhs. * GERD - Pantoprazole 40mg bid.
[2024-05-12] MEDS: Pantoprazole Sodium 40 MG Tablet PO ×2 (08:16→21:26)
[2024-05-12] MEDS: Ciprofloxacin 250 MG Tablet PO ×2 (08:16→21:26)
[2024-05-12] MEDS: Gabapentin 100 MG Capsule PO ×2 (08:16→16:58)
[2024-05-12] MEDS: Senna/Docusate Sodium 1 Tablet 2 TABLET PO ×2 (08:16→21:26)
[2024-05-12] MEDS: Polyethylene Glycol 3350 17 GM PACKET PO (08:16)
[2024-05-12] MEDS: Menthol/Lanolin/Calamine/Znox 113 GM Tube 1 APPLIC TOPICAL ×2 (08:24→21:27)
[2024-05-12] MEDS: Ensure Plus High Protein 120 ML LIQUID PO ×4 (08:25→21:33)
[2024-05-12 08:42] VITALS: PULSE 62; RESP 14
--- NOTE | 2024-05-12 15:15 | CHAPLAIN ---
Type of Pastoral Visit ___ Initial Visit _x__ Follow-up Visit ___ On-call Visit ___ General Patient Visit ___ Spiritual Assessment ___ Family Conference ___ Bereavement ___ Rapid Response ___ Code Blue ___ Other (describe below) Pastoral Care Referral From ___ Patient ___ Family ___ Nurse ___ Physician _x__ Audit Practice Intern ___ Rolloff Driver ___ Other (describe below) Sacrament/Intervention _x__ Active listening ___ Anointing ___ Caodaism ___ Bereavement ___ Communion ___ Latoya exploration ___ ___ Life review _x__ Prayer ___ Reconciliation ___ Sacrament of Sick _x__ Supportive presence ___ Wedding ___ Other (describe below) Pastoral Comments this patient has been seen before while in this episode of illness and recovery; SW has indicated that patient is in need of emotional and spiritual support; pt is awake and sitting in his chair very quietly; casual conversation about the weather; asked questions about how the patient is feeling, how he sees his progress, if he is getting support from family, others, and what he is experiencing in his circumstances; pt answers questions without getting too involved; pt says that He is the one in control as he points finger to the marck; asked about what he means the patient responds He is doing what he wants and we are not in charge; pt says that he excepts that he doesn't get many visitors because they have their own lives and I am okay with that, I get it; pt denies needs or other concerns; pt does agree with a prayer for his support today
[2024-05-12 18:00] VITALS: BP 151/64; PULSE 61; RESP 16; TEMP 36.3; O2SAT 95
[2024-05-12] MEDS: Mirtazapine 15 MG Tablet PO (21:26)
[2024-05-13 06:00] VITALS: BP 101/58; PULSE 57; RESP 17; TEMP 36.5; O2SAT 97; BMI 23.7
[2024-05-13] MEDS: Midodrine HCl 5 MG Tablet 10 MG PO ×3 (06:55→15:56)
[2024-05-13] MEDS: Polyethylene Glycol 3350 17 GM PACKET PO (07:47)
[2024-05-13] MEDS: Senna/Docusate Sodium 1 Tablet 2 TABLET PO ×2 (07:47→20:00)
[2024-05-13] MEDS: Gabapentin 100 MG Capsule PO ×2 (07:47→17:09)
[2024-05-13] MEDS: Pantoprazole Sodium 40 MG Tablet PO ×2 (07:48→20:00)
[2024-05-13] MEDS: Ciprofloxacin 250 MG Tablet PO ×2 (07:50→20:00)
[2024-05-13] MEDS: Menthol/Lanolin/Calamine/Znox 113 GM Tube 1 APPLIC TOPICAL ×2 (07:55→19:59)
[2024-05-13] MEDS: Ensure Plus High Protein 120 ML LIQUID PO ×3 (11:30→17:10)
[2024-05-13 11:32] VITALS: BP 95/53; PULSE 60
[2024-05-13 15:59] VITALS: BP 110/63; PULSE 63; RESP 17; TEMP 36.3; O2SAT 97
[2024-05-13] MEDS: Mirtazapine 15 MG Tablet PO (20:01)
[2024-05-13 20:04] VITALS: BP 157/76; PULSE 54; RESP 16; TEMP 36.6; O2SAT 97
[2024-05-14 05:15] VITALS: BP 149/73; PULSE 68; RESP 18; TEMP 36.9; O2SAT 96; BMI 24.1
[2024-05-14] MEDS: Gabapentin 100 MG Capsule PO ×2 (07:59→16:27)
[2024-05-14] MEDS: Midodrine HCl 5 MG Tablet 10 MG PO ×3 (07:59→15:55)
[2024-05-14] MEDS: Ensure Plus High Protein 120 ML LIQUID PO ×3 (07:59→21:35)
[2024-05-14] MEDS: Ciprofloxacin 250 MG Tablet PO ×2 (07:59→21:33)
[2024-05-14] MEDS: Senna/Docusate Sodium 1 Tablet 2 TABLET PO ×2 (08:00→21:33)
[2024-05-14] MEDS: Pantoprazole Sodium 40 MG Tablet PO ×2 (08:00→21:33)
[2024-05-14] MEDS: Polyethylene Glycol 3350 17 GM PACKET PO (08:00)
[2024-05-14] MEDS: Menthol/Lanolin/Calamine/Znox 113 GM Tube 1 APPLIC TOPICAL ×2 (08:04→21:32)
[2024-05-14 10:00] VITALS: O2SAT 96
[2024-05-14 16:54] VITALS: BP 109/58; PULSE 59; RESP 16; TEMP 36.6; O2SAT 95
[2024-05-14] MEDS: Mirtazapine 15 MG Tablet PO (21:33)
[2024-05-14] MEDS: BENZOCAINE/MENTHOL 1 LOZENGE MUCOUS MEM (21:47)
[2024-05-15 06:00] VITALS: BP 160/95; PULSE 64; RESP 16; TEMP 36.6; O2SAT 96
[2024-05-15 06:14] VITALS: BMI 24.5
[2024-05-15] MEDS: Midodrine HCl 5 MG Tablet 10 MG PO ×3 (06:19→16:11)
--- NOTE | 2024-05-15 07:47 | PN.REHAB_ITS ---
Subjective Subjective Patient seen, examined. He told me therapy encourages him to feed himself, but it is difficult because he cannot bend his neck with C-collar on. Objective Data Objective Data Vital Signs: Vital Signs Temp Pulse Resp BP Pulse Ox O2 Del Method 98 F 64 16 160/95 H 96 Room Air 05/15/24 06:00 05/15/24 06:00 05/15/24 06:00 05/15/24 06:00 05/15/24 06:00 05/15/24 06:00 Oxygen Delivery Method Room Air Weight: 73.51 kg Body Mass Index (BMI) 24.5 Intake & Output: Intake and Output for Last 24 Hours 05/13/24 05/14/24 05/15/24 23:59 23:59 23:59 Intake Total 2009 480 / 480 Output Total 0 / 0 Balance 2009 480 / 480 Lab / Micro Data 05/11/24 06:03 05/11/24 06:03 Micro: Microbiology 05/10/24 11:50 Urine Catheter - Catheter Urine Culture - Final Enterobacter cloacae complex 04/27/24 22:05 Urine Catheter - Catheter Urine Culture - Final Culture exhibits no growth. 04/29/24 22:20 Stool Stool Occult Blood (JERMAINE) - Final Indicators for Scoring Admitted with or Primary Diagnosis of CVA/Stroke: No Hx of CVA/Stroke: No Physical Exam Const alert General Appearance: cooperative HEENT normocephalic Eyes PERRL and EOMs intact bilaterally Neck supple, no JVD and no carotid bruits Neck Narrative: C-collar in place. Resp normal respiratory effort, normal air movement and clear to auscultation bilaterally Cardio regular rate and regular rhythm GI normal to inspection, nondistended, normoactive bowel sounds, non-tender and non-distended Extremity normal capillary refill General Extremity: Negative for edema Skin no rashes or lesions noted General Skin Exam: no breakdown Neuro Neuro Narrative: Left upper extremity weakness. Psych affect normal Appearance: appropriate Assessment & Plan Assessment/Plan (1) Debility: (2) Multiple falls: (3) Cervical stenosis of spinal canal: (4) Dysphagia: QUALIFIERS: Dysphagia type: pharyngeal phase Qualified Code(s): R 13.13 - Dysphagia, pharyngeal phase (5) Anxiety: (6) BPPV (benign paroxysmal positional vertigo): (7) Osteoarthritis: (8) Muscle spasm: (9) Orthostatic hypotension: (10) GERD (gastroesophageal reflux disease): (11) BPH (benign prostatic hyperplasia): (12) Urinary tract infection: PLAN: Plan 83 year old male with below past medical history hospitalized for multiple falls 2/2 cervical spinal stenosis, underwent c3-6 acdf 05/06/[address] Diego, admitted to for 3 hours daily rehabilitatin, strengthening, prior to disposition determination. * Debility - PT/OT. * Dysphagia - ST. * Pain - Tylenol 1000mg q8 prn, Oxycodone 2.5mg - 5mg q4h prn. * Bowel - Miralax 17gm daily, senna/colace 2 tablets bid, Dulcolax 10mg pr x 1 prn, MOM 30mL po x 1 prn. * Cervical spinal stenosis s/p decompression - Dr. Diego recommends weaning C- Collar, will start weaning, will help him feed himself. * Sore throat - Cepacol 1 lozenge q2h prn. * Dry eyes - Artificial tears 2gtt ou q1h prn. * UTI - Urine culture growing 50,000 to 80,000 Enterobacter Cloacae complex, Cipro 250mg bid x 7 days. * Nutrition - Ensure Plus 120mL 4x/day. * Neuropathic pain - Gabapentin 100mg bidcm. * Skin irritation - Calmoseptine topical bid. * Orthostatic hypotension - Midodrine 10mg tid. * Depression/Insomnia/appetite loss - Mirtazapine 15mg qhs. * GERD - Pantoprazole 40mg bid.
[2024-05-15 07:51] VITALS: BP 93/53; PULSE 64
[2024-05-15] MEDS: Ciprofloxacin 250 MG Tablet PO ×2 (08:20→20:42)
[2024-05-15] MEDS: Senna/Docusate Sodium 1 Tablet 2 TABLET PO ×2 (08:20→20:42)
[2024-05-15] MEDS: Pantoprazole Sodium 40 MG Tablet PO ×2 (08:20→20:43)
[2024-05-15] MEDS: Menthol/Lanolin/Calamine/Znox 113 GM Tube 1 APPLIC TOPICAL ×2 (08:21→20:43)
[2024-05-15] MEDS: Ensure Plus High Protein 120 ML LIQUID PO ×2 (08:21→20:42)
[2024-05-15] MEDS: Gabapentin 100 MG Capsule PO ×2 (08:24→16:11)
--- NOTE | 2024-05-15 09:51 | CASEMGMT ---
Team meeting held with pt and pt exwife present. PT/OT/SN/ provided updates on pt progress since last team meeting. Pt is also receiving speech therapy. Pt is making some progress with therapies, but is not ready for return home alone at this time. AGAPITO discussed with pt/ex that Medicare allowed for 23 days of Inpatient Rehab care and that dc date is set for 05/20. SW updated that [facility] has accepted and pt will dc there on Wednesday under a skilled level of care for continued therapy and rehab. Pt and ex are agreeable to dc plan. SW will continue to follow for dc arrangements. JAVIER Lopez
[2024-05-15 18:00] VITALS: BP 156/57; PULSE 57; RESP 16; TEMP 36.3; O2SAT 94
[2024-05-15] MEDS: Mirtazapine 15 MG Tablet PO (20:43)
[2024-05-15 22:00] VITALS: PULSE 68; RESP 15; O2SAT 94
[2024-05-16] MEDS: Midodrine HCl 5 MG Tablet 10 MG PO ×3 (05:12→15:11)
[2024-05-16 05:19] VITALS: BP 107/53; PULSE 57; RESP 16; TEMP 36.3; O2SAT 94; BMI 24.3
[2024-05-16] MEDS: Menthol/Lanolin/Calamine/Znox 113 GM Tube 1 APPLIC TOPICAL ×2 (08:21→20:00)
--- NOTE | 2024-05-16 08:21 | PN.REHAB_ITS ---
Subjective Subjective Patient seen, examined. Elayne from OT present. Milan is out of c-collar for breakfast. He was able to walk to the bathroom today instead of using wheelchair, plan is discharge to [facility] in 4 days. Objective Data Objective Data Vital Signs: Vital Signs Temp Pulse Resp BP Pulse Ox O2 Del Method 97.4 F L 57 L 16 107/53 L 94 Room Air 05/16/24 05:19 05/16/24 05:19 05/16/24 05:19 05/16/24 05:19 05/16/24 05:19 05/16/24 05:19 Oxygen Delivery Method Room Air Weight: 72.9 kg Body Mass Index (BMI) 24.3 Intake & Output: Intake and Output for Last 24 Hours 05/14/24 05/15/24 05/16/24 23:59 23:59 23:59 Intake Total 480 / 480 1360 / 1360 60 / 60 Output Total 300 / 300 Balance 480 / 480 1060 / 1060 60 / 60 Lab / Micro Data 05/11/24 06:03 05/11/24 06:03 Micro: Microbiology 05/10/24 11:50 Urine Catheter - Catheter Urine Culture - Final Enterobacter cloacae complex 04/27/24 22:05 Urine Catheter - Catheter Urine Culture - Final Culture exhibits no growth. 04/29/24 22:20 Stool Stool Occult Blood (JERMAINE) - Final Indicators for Scoring Admitted with or Primary Diagnosis of CVA/Stroke: No Hx of CVA/Stroke: No Physical Exam Const alert General Appearance: cooperative HEENT normocephalic Eyes PERRL and EOMs intact bilaterally Neck supple, no JVD and no carotid bruits Neck Narrative: C-collar in place. Resp normal respiratory effort, normal air movement and clear to auscultation bilaterally Cardio regular rate and regular rhythm GI normal to inspection, nondistended, normoactive bowel sounds, non-tender and non-distended Extremity normal capillary refill General Extremity: Negative for edema Skin no rashes or lesions noted General Skin Exam: no breakdown Neuro Neuro Narrative: Left upper extremity weakness. Psych affect normal Appearance: appropriate Assessment & Plan Assessment/Plan (1) Debility: (2) Multiple falls: (3) Cervical stenosis of spinal canal: (4) Dysphagia: QUALIFIERS: Dysphagia type: pharyngeal phase Qualified Code(s): R 13.13 - Dysphagia, pharyngeal phase (5) Anxiety: (6) BPPV (benign paroxysmal positional vertigo): (7) Osteoarthritis: (8) Muscle spasm: (9) Orthostatic hypotension: (10) GERD (gastroesophageal reflux disease): (11) BPH (benign prostatic hyperplasia): (12) Urinary tract infection: PLAN: Plan 83 year old male with below past medical history hospitalized for multiple falls 2/2 cervical spinal stenosis, underwent c3-6 acdf 05/06/[address] Diego, admitted to for 3 hours daily rehabilitatin, strengthening, prior to disposition determination. * Debility - PT/OT. * Dysphagia - ST. * Pain - Tylenol 1000mg q8 prn, Oxycodone 2.5mg - 5mg q4h prn. * Bowel - Miralax 17gm daily, senna/colace 2 tablets bid, Dulcolax 10mg pr x 1 prn, MOM 30mL po x 1 prn. * Cervical spinal stenosis s/p decompression - Dr. Diego recommends weaning C- Collar, goal of off C-Collar in 2 weeks time. * Sore throat - Cepacol 1 lozenge q2h prn. * Dry eyes - Artificial tears 2gtt ou q1h prn. * UTI - Urine culture growing 50,000 to 80,000 Enterobacter Cloacae complex, Cipro 250mg bid x 7 days thru 05/17/2024. * Nutrition - Ensure Plus 120mL 4x/day. * Neuropathic pain - Gabapentin 100mg bidcm. * Skin irritation - Calmoseptine topical bid. * Orthostatic hypotension - Midodrine 10mg tid. * Depression/Insomnia/appetite loss - Mirtazapine 15mg qhs. * GERD - Pantoprazole 40mg bid.
[2024-05-16] MEDS: Senna/Docusate Sodium 1 Tablet 2 TABLET PO ×2 (08:22→19:59)
[2024-05-16] MEDS: Pantoprazole Sodium 40 MG Tablet PO ×2 (08:22→20:00)
[2024-05-16] MEDS: Ciprofloxacin 250 MG Tablet PO ×2 (08:23→20:00)
[2024-05-16] MEDS: Gabapentin 100 MG Capsule PO ×2 (08:26→16:40)
[2024-05-16 18:00] VITALS: BP 129/57; PULSE 67; RESP 16; TEMP 36.6; O2SAT 94
[2024-05-16] MEDS: Mirtazapine 15 MG Tablet PO (19:59)
[2024-05-16] MEDS: Ensure Plus High Protein 120 ML LIQUID PO (20:00)
[2024-05-16 22:00] VITALS: PULSE 62; RESP 18; O2SAT 96
[2024-05-17 05:46] VITALS: BP 125/67; PULSE 68; RESP 17; TEMP 36.8; O2SAT 94; BMI 24.5
[2024-05-17] MEDS: Midodrine HCl 5 MG Tablet 10 MG PO ×3 (06:28→16:04)
[2024-05-17] MEDS: Gabapentin 100 MG Capsule PO ×2 (07:53→16:03)
[2024-05-17] MEDS: Pantoprazole Sodium 40 MG Tablet PO ×2 (07:53→21:03)
[2024-05-17] MEDS: Ciprofloxacin 250 MG Tablet PO (07:53)
[2024-05-17] MEDS: Menthol/Lanolin/Calamine/Znox 113 GM Tube 1 APPLIC TOPICAL ×2 (07:53→21:04)
[2024-05-17] MEDS: Senna/Docusate Sodium 1 Tablet 2 TABLET PO ×2 (07:54→21:03)
--- NOTE | 2024-05-17 08:13 | PN.REHAB_ITS ---
Subjective Subjective Patient seen, examined. He is eating breakfast in bed. His C-collar is off, he was able to walk yesterday, he feels he is clearing his throat, when swallowing. His mood is baseline. Objective Data Objective Data Vital Signs: Vital Signs Temp Pulse Resp BP Pulse Ox O2 Del Method 98.3 F 68 17 125/67 H 94 Room Air 05/17/24 05:46 05/17/24 05:46 05/17/24 05:46 05/17/24 05:46 05/17/24 05:46 05/17/24 05:46 Oxygen Delivery Method Room Air Weight: 73.4 kg Body Mass Index (BMI) 24.5 Intake & Output: Intake and Output for Last 24 Hours 05/15/24 05/16/24 05/17/24 23:59 23:59 23:59 Intake Total 1360 / 1360 1140 / 1140 320 / 320 Output Total 300 / 300 100 / 100 Balance 1060 / 1060 1040 / 1040 320 / 320 Lab / Micro Data 05/11/24 06:03 05/11/24 06:03 Micro: Microbiology 05/10/24 11:50 Urine Catheter - Catheter Urine Culture - Final Enterobacter cloacae complex 04/27/24 22:05 Urine Catheter - Catheter Urine Culture - Final Culture exhibits no growth. 04/29/24 22:20 Stool Stool Occult Blood (JERMAINE) - Final Indicators for Scoring Admitted with or Primary Diagnosis of CVA/Stroke: No Hx of CVA/Stroke: No Physical Exam Const alert General Appearance: cooperative HEENT normocephalic Eyes PERRL and EOMs intact bilaterally Neck supple, no JVD and no carotid bruits Neck Narrative: C-collar in place. Resp normal respiratory effort, normal air movement and clear to auscultation bilaterally Cardio regular rate and regular rhythm GI normal to inspection, nondistended, normoactive bowel sounds, non-tender and non-distended Extremity normal capillary refill General Extremity: Negative for edema Skin no rashes or lesions noted General Skin Exam: no breakdown Neuro Neuro Narrative: Left upper extremity weakness. Psych affect normal Appearance: appropriate Assessment & Plan Assessment/Plan (1) Debility: (2) Multiple falls: (3) Cervical stenosis of spinal canal: (4) Dysphagia: QUALIFIERS: Dysphagia type: pharyngeal phase Qualified Code(s): R 13.13 - Dysphagia, pharyngeal phase (5) Anxiety: (6) BPPV (benign paroxysmal positional vertigo): (7) Osteoarthritis: (8) Muscle spasm: (9) Orthostatic hypotension: (10) GERD (gastroesophageal reflux disease): (11) BPH (benign prostatic hyperplasia): (12) Urinary tract infection: PLAN: Plan 83 year old male with below past medical history hospitalized for multiple falls 2/2 cervical spinal stenosis, underwent c3-6 acdf 05/06/[address] Diego, admitted to for 3 hours daily rehabilitatin, strengthening, prior to disposition determination. * Debility - PT/OT. * Dysphagia - ST. * Pain - Tylenol 1000mg q8 prn, Oxycodone 2.5mg - 5mg q4h prn. * Bowel - Miralax 17gm daily, senna/colace 2 tablets bid, Dulcolax 10mg pr x 1 prn, MOM 30mL po x 1 prn. * Cervical spinal stenosis s/p decompression - Continue to wean C-collar over the next 10 days. * Sore throat - Cepacol 1 lozenge q2h prn. * Dry eyes - Artificial tears 2gtt ou q1h prn. * Nutrition - Ensure Plus 120mL 4x/day. * Neuropathic pain - Gabapentin 100mg bidcm. * Skin irritation - Calmoseptine topical bid. * Orthostatic hypotension - Midodrine 10mg tid. * Depression/Insomnia/appetite loss - Mirtazapine 15mg qhs. * GERD - Pantoprazole 40mg bid.
--- NOTE | 2024-05-17 10:59 | CASEMGMT ---
Social Work- SW met with pt to complete discharge planning. SW introduced self and role; pt agreeable to meet. Pt scored 14/15 on BIMS, 0/2 on PHQ9. Pt will be transferred 05/20 to [facility]; transportation by [facility] at 11:00 by cot. Transport sheet on chart. 7000 started. SW remains available to follow for discharge planning needs that may arise. JAVIER Pimentel
--- NOTE | 2024-05-17 16:18 | CASEMGMT ---
Social Work SW spoke with xwife to notify of cot transport scheduled for 1100 to [facility]. xwife plans to meet pt at [facility]. xwife appreciative. Pamela Jacobs [employer]
[2024-05-17 17:38] VITALS: BP 151/72; PULSE 60; RESP 15; TEMP 37; O2SAT 96
[2024-05-17] MEDS: Mirtazapine 15 MG Tablet PO (21:03)
[2024-05-17] MEDS: Ensure Plus High Protein 120 ML LIQUID PO (21:09)
[2024-05-18 05:29] VITALS: BMI 24.3
[2024-05-18 05:32] VITALS: BP 156/63; PULSE 63; RESP 16; TEMP 35.9; O2SAT 95
[2024-05-18] MEDS: Midodrine HCl 5 MG Tablet 10 MG PO ×3 (06:17→16:10)
[2024-05-18] MEDS: Polyethylene Glycol 3350 17 GM PACKET PO (07:45)
[2024-05-18] MEDS: Senna/Docusate Sodium 1 Tablet 2 TABLET PO ×2 (07:46→20:45)
[2024-05-18] MEDS: Pantoprazole Sodium 40 MG Tablet PO ×2 (07:46→20:45)
[2024-05-18] MEDS: Menthol/Lanolin/Calamine/Znox 113 GM Tube 1 APPLIC TOPICAL ×2 (07:46→20:48)
[2024-05-18] MEDS: Gabapentin 100 MG Capsule PO ×2 (07:46→16:10)
--- NOTE | 2024-05-18 08:52 | EX.DISCHREH ---
Providers Date of Admission: 04/27/24 Primary Care Physician: Dr. Kevin Menjivar MD Reason For Visit: SPINCAL CORD COMPRESSION W MYELOPATHY Diagnosis Discharge Diagnosis (1) Debility: Status: Acute Code(s): R53.81 - Other malaise (2) Multiple falls: Status: Acute Code(s): R29.6 - Repeated falls (3) Cervical stenosis of spinal canal: Status: Chronic Code(s): M48.02 - Spinal stenosis, cervical region (4) Dysphagia: Status: Acute Code(s): R13.10 - Dysphagia, unspecified Qualifiers: Dysphagia type: pharyngeal phase Qualified Code(s): R13.13 - Dysphagia, pharyngeal phase (5) Anxiety: Status: Acute Code(s): F41.9 - Anxiety disorder, unspecified (6) BPPV (benign paroxysmal positional vertigo): Status: Acute Code(s): H81.10 - Benign paroxysmal vertigo, unspecified ear (7) Osteoarthritis: Status: Acute Code(s): M19.90 - Unspecified osteoarthritis, unspecified site (8) Muscle spasm: Status: Acute Code(s): M62.838 - Other muscle spasm (9) Orthostatic hypotension: Status: Acute Code(s): I95.1 - Orthostatic hypotension (10) GERD (gastroesophageal reflux disease): Status: Acute Code(s): K21.9 - Gastro-esophageal reflux disease without esophagitis (11) BPH (benign prostatic hyperplasia): Status: Suspected Code(s): N40.0 - Benign prostatic hyperplasia without lower urinary tract symptoms (12) Urinary tract infection: Status: Acute Code(s): N39.0 - Urinary tract infection, site not specified Plan 83 year old male with below past medical history hospitalized for multiple falls 2/2 cervical spinal stenosis, underwent c3-6 acdf 05/06/[address] Diego, admitted to for 3 hours daily rehabilitatin, strengthening, prior to disposition determination. Debility - PT/OT. Dysphagia - ST. Pain - Tylenol 1000mg q8 prn, Oxycodone 2.5mg - 5mg q4h prn. Bowel - Miralax 17gm daily, senna/colace 2 tablets bid, Dulcolax 10mg pr x 1 prn, MOM 30mL po x 1 prn. Cervical spinal stenosis s/p decompression - Continue to wean C-collar over the next 10 days. Sore throat - Cepacol 1 lozenge q2h prn. Dry eyes - Artificial tears 2gtt ou q1h prn. Nutrition - Ensure Plus 120mL 4x/day. Neuropathic pain - Gabapentin 100mg bidcm. Skin irritation - Calmoseptine topical bid. Orthostatic hypotension - Midodrine 10mg tid. Depression/Insomnia/appetite loss - Mirtazapine 15mg qhs. GERD - Pantoprazole 40mg bid. Medications at Discharge Home Medications sennosides 8.6 mg-docusate sodium 50 mg tablet (Stimulant Laxative Plus) 2 tab PO BID laxative #0 tabs 04/27/24 acetaminophen 500 mg tablet 1,000 mg (2 x 500 mg) PO Q8H PRN Pain 1-10 Or Fever >100.7 #0 tabs 05/18/24 benzocaine 15 mg-menthol 3.6 mg lozenges (Sore Throat (benzocaine with menthol)) 1 juliet mucous membrane Q2H PRN PRN SORE THROAT #0 ea 05/18/24 bisacodyl 10 mg rectal suppository 10 mg AK X1 PRN Constipation #0 ea 05/18/24 carboxymethylcellulose sodium 0.5 % eye drops (Refresh Tears) 2 drp EACH EYE Q1H PRN DRY EYES #0 mL 05/18/24 food supplemt, lactose-reduced 0.08 gram-1.5 kcal/mL oral liquid (Ensure Plus High Protein) 120 ml PO 4X/DAY #0 mL 05/18/24 gabapentin 100 mg capsule 100 mg PO BIDCM #0 caps 05/18/24 magnesium hydroxide 400 mg/5 mL oral suspension 30 ml PO X1 PRN Constipation #0 mL 05/18/24 menthol 0.44 %-zinc oxide 20.6 % topical ointment (Calmoseptine) 1 applic topical BID #0 grams 05/18/24 midodrine 5 mg tablet 10 mg (2 x 5 mg) PO 0700,1100,1500 #0 tabs 05/18/24 mirtazapine 15 mg tablet 15 mg PO QHS #0 tabs 05/18/24 pantoprazole 40 mg tablet,delayed release 40 mg PO BID #0 tabs 05/18/24 Hospital Course Operations - (See below.) Procedures None Summary of Care Provided Minutes Spent on Discharge: 35 Hospital Course: 83 year old male with below past medical history hospitalized for multiple falls 2/2 cervical spinal stenosis, underwent c3-6 acdf 05/06/[address] Diego, admitted to for 3 hours daily rehabilitatin, strengthening, prior to disposition determination. Wean off C-collar over the next week. Discharge to [facility] 05/20/2024, skilled. Physical Exam Const alert General Appearance: cooperative HEENT normocephalic Eyes PERRL and EOMs intact bilaterally Neck supple, no JVD and no carotid bruits Neck Narrative: C-collar in place. Resp normal respiratory effort, normal air movement and clear to auscultation bilaterally Cardio regular rate and regular rhythm GI normal to inspection, nondistended, normoactive bowel sounds, non-tender and non-distended Extremity normal capillary refill General Extremity: Negative for edema Skin no rashes or lesions noted General Skin Exam: no breakdown Neuro Neuro Narrative: Left upper extremity weakness. Psych affect normal Appearance: appropriate Weight / BMI Weight Weight: 72.717 kg Body Mass Index (BMI) 24.3 ABG / Lab / Microbiology Data 05/11/24 06:03 05/11/24 06:03 Microbiology: Microbiology 05/10/24 11:50 Urine Catheter - Catheter Urine Culture - Final Enterobacter cloacae complex 04/27/24 22:05 Urine Catheter - Catheter Urine Culture - Final Culture exhibits no growth. 04/29/24 22:20 Stool Stool Occult Blood (JERMAINE) - Final Indicators for Scoring Admitted with or Primary Diagnosis of CVA/Stroke: No Hx of CVA/Stroke: No D/C Instructions Discharge Diet: - (Diet: Minced and Moist Textures and Thin Liquids Medication Administration:: Crushed in puree Comments: Sips 1 at a time, double swallow w/ solids (minced/moist textures) Compensatory Strategies: Small Bites, Small Sips, Slow Rate, Multiple Swallows, Alternate bites/solids and sips/liquids, Sitting ) Discharge Activity: Return to Normal Activity, May Shower and Use Walker Weight Bearing Status: Weight bearing as tolerated Call your doctor if you observe: Fever of 101 or Higher, Inability to urinate, Inability to have a bowel movement, Shortness of breath, Dizziness, Fainting spells, Swelling in the ankles, Chest pain and Uncontrolled pain DC O2, CPAP, BIPAP Needs RN Home O2 qualification: No Data to Display Home O2 Discharge instructions: No Additional Instructions: Discharge to [facility] 05/20/2024, skilled. Meaningful Use Info Meaningful Use Meaningful Use Diagnoses (Choose all that apply): None applicable Ischemic Stroke Statin Dosing Therapy Reference: STATIN DOSE THERAPY REFERENCE: * Patients > 75 years receive moderate or high dose statin therapy. * Patients 75 years or YOUNGER should receive HIGH intensity statin dose unless contraindicated. You will be required to document reason for non-treatment if statin daily dose does not meet guidelines. HIGH DOSE STATIN THERAPY DAILY Atorvastatin > than or = to 40 mg Rosuvastatin > than or = to 20 mg Amlodipine + Atorvastatin > than or = to 2.5/40 mg Ezetimibe + Simvastatin 10/80 mg Simvastatin 80mg Discharge Plan Admission Admit Date/Time: 04/27/24 15:15 Primary Reason for Your Visit: Debility. Attending Provider: Corazon Wright Primary Care Provider: Kevin Menjivar Instructions Additional Instructions / Restrictions: Discharge to [facility] 05/20/2024, skilled. Discharge Orders/Prescriptions Prescriptions: New midodrine 5 mg Tablet 10 mg PO 0700,1100,1500 Qty: 0 0RF acetaminophen 500 mg Tablet 1,000 mg PO Q8H PRN (Reason: Pain 1-10 Or Fever >100.7) Qty: 0 0RF magnesium hydroxide 400 mg/5 mL Suspension 30 ml PO X1 PRN (Reason: Constipation) Qty: 0 0RF carboxymethylcellulose sodium [Refresh Tears] 0.5 % Drops 2 drp EACH EYE Q1H PRN (Reason: DRY EYES) Qty: 0 0RF bisacodyl 10 mg Suppository 10 mg AK X1 PRN (Reason: Constipation) Qty: 0 0RF pantoprazole 40 mg Tablet,Delayed Release (Dr/Ec) 40 mg PO BID Qty: 0 0RF mirtazapine 15 mg Tablet 15 mg PO QHS Qty: 0 0RF gabapentin 100 mg Capsule 100 mg PO BIDCM Qty: 0 0RF menthol-zinc oxide [Calmoseptine] 0.44-20.6 % Ointment 1 applic topical BID Qty: 0 0RF Protocol: *Topical Application Instructions APPLICATION INSTRUCTIONS: bilateral buttocks Sore Throat (benzocaine-menth) 15-3.6 mg Lozenge 1 juliet mucous membrane Q2H PRN PRN (Reason: SORE THROAT) Qty: 0 0RF Ensure Plus High Protein 0.08 gram-1.5 kcal/mL Liquid 120 ml PO 4X/DAY Qty: 0 0RF Continued sennosides-docusate sodium [Stimulant Laxative Plus] 8.6-50 mg Tablet 2 tab PO BID Qty: 0 0RF Discontinued methocarbamol 500 mg Tablet 1,000 mg PO 4X/DAY Qty: 0 0RF acetaminophen 325 mg Tablet 650 mg PO Q6H PRN PRN (Reason: Pain 1-10 Or Fever >100.7) Qty: 0 0RF midodrine 5 mg Tablet 10 mg PO TIDCM Qty: 0 0RF Rx Instructions: Hold for SBP less than 100 mmHg tamsulosin 0.4 mg Capsule 0.4 mg PO DAILY@1730 Qty: 0 0RF carboxymethylcellulose sodium [Refresh Tears] 0.5 % Drops 2 drp EACH EYE Q1H PRN (Reason: DRY EYES) Qty: 0 0RF meclizine 25 mg Tablet 12.5 mg PO TID PRN (Reason: dizziness) Qty: 0 0RF diazepam 2 mg Tablet 2 mg PO 4X/DAY PRN PRN (Reason: Vertigo) Qty: 0 0RF Rx Instructions: Hold for sedation/lethargy/hypotension, SBP less than 100 mmHg oxycodone 5 mg Tablet 2.5 - 5 mg PO Q4H PRN PRN (Reason: Pain Score 4-10) Qty: 0 0RF Rx Instructions: Oxycodone 2.5 mg for moderate pain and 5 mg for severe pain respectively. Sore Throat (benzocaine-menth) 15-3.6 mg Lozenge 1 juliet mucous membrane Q2H PRN PRN (Reason: SORE THROAT) Qty: 0 0RF Ensure Plus High Protein 0.08 gram-1.5 kcal/mL Liquid 120 ml PO TIDCM Qty: 0 0RF pantoprazole 20 mg tablet,delayed release (DR/EC) 20 mg PO DAILY Qty: 30 0RF meloxicam 15 mg Tablet 15 mg PO DAILY Qty: 0 0RF Rx Instructions: For 1 week Referrals / Follow Up: Ciro Diego MD [Med Staff - Active Staff] - 06/01/24 3:30 pm Kevin Menjivar MD [Primary Care Provider] - Favio Austin DO [Med Staff - Active Staff] - 05/25/24 12:30 pm (Esophagitis/laryngitis Suspected dysmotility ) Disposition Disposition (needs filled in before D/C Order can be placed): [facility]
--- NOTE | 2024-05-18 09:02 | PCM.TXEXTCAR ---
Diet Diet Order/Speech Therapy: 05/09/24 11:34 Diet: Regular - General Food consistency:: Pureed Liquid Consistency:: [place]/Mildly Thick Type of Dietary Supplement:: Magic Cup w/ L & D Diet Comments: assisted feed, sips 1 at a time, alternate bites/sips, built up utensils. Routine Orders/Code Status Code Status: Full Code DC O2, CPAP, BIPAP needs Home O2 Discharge instructions: No Wound(s) ANT NECK: Wound Type: Surgical Incision Therapies Weight Bearing: Weight bearing as tolerated Extremity Affected:: Bilateral Lower Physical Therapy: Eval and Treat Occupational Therapy: Eval and Treat Speech Therapy: Eval and Treat Problem/Diagnosis (1) Debility: Status: Acute Code(s): R53.81 - Other malaise (2) Multiple falls: Status: Acute Code(s): R29.6 - Repeated falls (3) Cervical stenosis of spinal canal: Status: Chronic Code(s): M48.02 - Spinal stenosis, cervical region (4) Dysphagia: Status: Acute Code(s): R13.10 - Dysphagia, unspecified Comment: predated recent ACDF so acute on chronic (5) Anxiety: Status: Acute Code(s): F41.9 - Anxiety disorder, unspecified (6) BPPV (benign paroxysmal positional vertigo): Status: Acute Code(s): H81.10 - Benign paroxysmal vertigo, unspecified ear (7) Osteoarthritis: Status: Acute Code(s): M19.90 - Unspecified osteoarthritis, unspecified site (8) Muscle spasm: Status: Acute Code(s): M62.838 - Other muscle spasm (9) Orthostatic hypotension: Status: Acute Code(s): I95.1 - Orthostatic hypotension (10) GERD (gastroesophageal reflux disease): Status: Acute Code(s): K21.9 - Gastro-esophageal reflux disease without esophagitis (11) BPH (benign prostatic hyperplasia): Status: Suspected Code(s): N40.0 - Benign prostatic hyperplasia without lower urinary tract symptoms Comment: PSA normal. Has slow stream, urinary frequency, urinary hesitation and dribbling. Retaining urine at presentation to rehab. (12) Urinary tract infection: Status: Acute Code(s): N39.0 - Urinary tract infection, site not specified Plan 83 year old male with below past medical history hospitalized for multiple falls 2/2 cervical spinal stenosis, underwent c3-6 acdf 05/06/[address] Diego, admitted to for 3 hours daily rehabilitatin, strengthening, prior to disposition determination. Debility - PT/OT. Dysphagia - ST. Pain - Tylenol 1000mg q8 prn, Oxycodone 2.5mg - 5mg q4h prn. Bowel - Miralax 17gm daily, senna/colace 2 tablets bid, Dulcolax 10mg pr x 1 prn, MOM 30mL po x 1 prn. Cervical spinal stenosis s/p decompression - Continue to wean C-collar over the next 10 days. Sore throat - Cepacol 1 lozenge q2h prn. Dry eyes - Artificial tears 2gtt ou q1h prn. Nutrition - Ensure Plus 120mL 4x/day. Neuropathic pain - Gabapentin 100mg bidcm. Skin irritation - Calmoseptine topical bid. Orthostatic hypotension - Midodrine 10mg tid. Depression/Insomnia/appetite loss - Mirtazapine 15mg qhs. GERD - Pantoprazole 40mg bid. Allergies/Procedures Done in Hospital Allergies No Known Allergies Allergy (Verified 04/27/24 15:41) Procedures: None Type of Care/Length of Stay Estimated LOS: Convalescent Care Less Than 30 days Type of Care Needed: Skilled Rehab Potential: Good Prognosis: Good Additional Orders/Day of Discharge Day of Discharge: 05/20/24 Dietary and Speech Recommendations Dietitian Recommendations/Changes: Continue regular diet per [employer] M[employer]SEMBLER consistency/recommendations. Continue 120ml EPHP 4x daily with medpass, prefers vanilla or strawberry. Adjust to vanilla magic cup with dinner. Will order vanilla fortified pudding with breakfast and lunch. Will monitor weight trends. 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 HEAD[employer]SEMBLER informally assessed pt vocal quality through the use of the following assessment tasks. Diadochokinetic Rate -puh: patient average 5.2 syllables per second (WNL = 6.1) IMPAIRED -tuh: patient average 4 syllables per second (WNL = 6.0) IMPAIRED -kuh: patient average 4.4 syllables per second (WNL = 5.7) IMPAIRED -puh-tuh-kuh: patient average 1.6 syllables per second (WNL = 7.5) IMPAIRED Findings indicate impairment in articulatory coordination, evident by imprecise articulation S/Z Ratio -/s/ average duration: 3 seconds (WNL = ~20-25 seconds) IMPAIRED -/z/ average duration: 9.25 seconds (WNL = ~20-25 seconds) IMPAIRED -Average s/z ratio: 3/9.25 = 0.32 (WNL = ~ ratio of 1) IMPAIRED Findings indicate the presence of both respiratory and laryngeal impairment. Pt. was observed to have difficulty producing /s/ sound in a sustained manner appropriately despite max cues from [employer]ER. Pt. would often substitute /sh/ for /s/. Maximum Phonation of /ah/ -Sustained /ah/: average of 10.73 seconds IMPAIRED Findings indicate poor breath support and glottis sufficiency. Discharge Plan Admission Admit Date/Time: 04/27/24 15:15 Primary Reason for Your Visit: Debility. Attending Provider: Corazon Wright Primary Care Provider: Kevin Menjivar Instructions Additional Instructions / Restrictions: Discharge to [facility] 05/20/2024, skilled. Discharge Orders/Prescriptions Prescriptions: New midodrine 5 mg Tablet 10 mg PO 0700,1100,1500 Qty: 0 0RF acetaminophen 500 mg Tablet 1,000 mg PO Q8H PRN (Reason: Pain 1-10 Or Fever >100.7) Qty: 0 0RF magnesium hydroxide 400 mg/5 mL Suspension 30 ml PO X1 PRN (Reason: Constipation) Qty: 0 0RF carboxymethylcellulose sodium [Refresh Tears] 0.5 % Drops 2 drp EACH EYE Q1H PRN (Reason: DRY EYES) Qty: 0 0RF bisacodyl 10 mg Suppository 10 mg MA X1 PRN (Reason: Constipation) Qty: 0 0RF pantoprazole 40 mg Tablet,Delayed Release (Dr/Ec) 40 mg PO BID Qty: 0 0RF mirtazapine 15 mg Tablet 15 mg PO QHS Qty: 0 0RF gabapentin 100 mg Capsule 100 mg PO BIDCM Qty: 0 0RF menthol-zinc oxide [Calmoseptine] 0.44-20.6 % Ointment 1 applic topical BID Qty: 0 0RF Protocol: *Topical Application Instructions APPLICATION INSTRUCTIONS: bilateral buttocks Sore Throat (benzocaine-menth) 15-3.6 mg Lozenge 1 juliet mucous membrane Q2H PRN PRN (Reason: SORE THROAT) Qty: 0 0RF Ensure Plus High Protein 0.08 gram-1.5 kcal/mL Liquid 120 ml PO 4X/DAY Qty: 0 0RF Continued sennosides-docusate sodium [Stimulant Laxative Plus] 8.6-50 mg Tablet 2 tab PO BID Qty: 0 0RF Discontinued methocarbamol 500 mg Tablet 1,000 mg PO 4X/DAY Qty: 0 0RF acetaminophen 325 mg Tablet 650 mg PO Q6H PRN PRN (Reason: Pain 1-10 Or Fever >100.7) Qty: 0 0RF midodrine 5 mg Tablet 10 mg PO TIDCM Qty: 0 0RF Rx Instructions: Hold for SBP less than 100 mmHg tamsulosin 0.4 mg Capsule 0.4 mg PO DAILY@1730 Qty: 0 0RF carboxymethylcellulose sodium [Refresh Tears] 0.5 % Drops 2 drp EACH EYE Q1H PRN (Reason: DRY EYES) Qty: 0 0RF meclizine 25 mg Tablet 12.5 mg PO TID PRN (Reason: dizziness) Qty: 0 0RF diazepam 2 mg Tablet 2 mg PO 4X/DAY PRN PRN (Reason: Vertigo) Qty: 0 0RF Rx Instructions: Hold for sedation/lethargy/hypotension, SBP less than 100 mmHg oxycodone 5 mg Tablet 2.5 - 5 mg PO Q4H PRN PRN (Reason: Pain Score 4-10) Qty: 0 0RF Rx Instructions: Oxycodone 2.5 mg for moderate pain and 5 mg for severe pain respectively. Sore Throat (benzocaine-menth) 15-3.6 mg Lozenge 1 juliet mucous membrane Q2H PRN PRN (Reason: SORE THROAT) Qty: 0 0RF Ensure Plus High Protein 0.08 gram-1.5 kcal/mL Liquid 120 ml PO TIDCM Qty: 0 0RF pantoprazole 20 mg tablet,delayed release (DR/EC) 20 mg PO DAILY Qty: 30 0RF meloxicam 15 mg Tablet 15 mg PO DAILY Qty: 0 0RF Rx Instructions: For 1 week Referrals / Follow Up: Ciro Diego MD [Med Staff - Active Staff] - 06/01/24 3:30 pm Kevin Menjivar MD [Primary Care Provider] - Favio Austin DO [Med Staff - Active Staff] - 05/25/24 12:30 pm (Esophagitis/laryngitis Suspected dysmotility ) Disposition Disposition (needs filled in before D/C Order can be placed): [facility] (4) Dysphagia Qualifiers: Dysphagia type: pharyngeal phase Qualified Code(s): R13.13 - Dysphagia, pharyngeal phase
--- NOTE | 2024-05-18 11:05 | CASEMGMT ---
Addendum entered by Pamela Jacobs 05/18/24 11:08: SW also requested to [facility], per Dr. Wright, for pt to be seen by facility psychology and/or psychiatry. Original Note: Social Work 7000 completed in [facility]. DC paperwork and updated clinicals sent to [facility] via [employer]. Pamela Jacobs [employer]PATCHER [employer]
[2024-05-18] MEDS: Ensure Plus High Protein 120 ML LIQUID PO ×2 (17:17→20:46)
[2024-05-18 18:00] VITALS: BP 150/72; PULSE 58; RESP 14; TEMP 36.7; O2SAT 97
[2024-05-18] MEDS: Mirtazapine 15 MG Tablet PO (20:45)
[2024-05-19 05:22] VITALS: BP 104/54; PULSE 61; RESP 17; TEMP 36.7; O2SAT 96
[2024-05-19 05:23] VITALS: BMI 24.4
[2024-05-19] MEDS: Midodrine HCl 5 MG Tablet 10 MG PO ×3 (06:04→16:27)
[2024-05-19] MEDS: Menthol/Lanolin/Calamine/Znox 113 GM Tube 1 APPLIC TOPICAL ×2 (08:12→21:27)
[2024-05-19] MEDS: Ensure Plus High Protein 120 ML LIQUID PO ×3 (08:12→16:28)
[2024-05-19] MEDS: Gabapentin 100 MG Capsule PO ×2 (08:12→16:28)
[2024-05-19] MEDS: Senna/Docusate Sodium 1 Tablet 2 TABLET PO ×2 (08:13→21:27)
[2024-05-19] MEDS: Polyethylene Glycol 3350 17 GM PACKET PO (08:13)
[2024-05-19] MEDS: Pantoprazole Sodium 40 MG Tablet PO ×2 (08:13→21:27)
[2024-05-19 11:30] VITALS: BP 82/48; PULSE 65
[2024-05-19 17:41] VITALS: BP 96/50; PULSE 64; RESP 16; TEMP 36.6; O2SAT 96
[2024-05-19] MEDS: Mirtazapine 15 MG Tablet PO (21:27)
[2024-05-19 21:47] VITALS: BP 161/84; PULSE 66; RESP 16; TEMP 36.9; O2SAT 97
[2024-05-20 03:50] VITALS: BP 135/61; PULSE 60; RESP 16; TEMP 36.6; O2SAT 94
[2024-05-20 06:00] VITALS: BP 135/61; PULSE 61; RESP 16; TEMP 36.2; O2SAT 97; BMI 24.3
[2024-05-20 08:15] VITALS: BP 85/45
[2024-05-20] MEDS: Gabapentin 100 MG Capsule PO (08:19)
[2024-05-20] MEDS: Polyethylene Glycol 3350 17 GM PACKET PO (08:19)
[2024-05-20] MEDS: Midodrine HCl 5 MG Tablet 10 MG PO ×2 (08:19→10:40)
[2024-05-20] MEDS: Senna/Docusate Sodium 1 Tablet 2 TABLET PO (08:19)
[2024-05-20] MEDS: Pantoprazole Sodium 40 MG Tablet PO (08:19)
[2024-05-20 09:20] VITALS: BP 136/67; PULSE 59
--- NOTE | 2024-05-20 14:20 | NURSING ---
Patient discharged to [facility] at this time with physician's ambulance. aware. Report given.
== END 2024-05-20 14:25 | disposition skilled nursing facility (03) | DRG 559 ==
PROVIDERS: Family Medicine Geriatric Medicine; Admitting Provider Internal Medicine; PCP Family Medicine; Referring Provider Internal Medicine; Visit Provider Internal Medicine
DX: Z47.89 Encounter for other orthopedic aftercare (principal); K21.01 Gastro-esophageal reflux disease with esophagitis, with bleeding; G99.2 Myelopathy in diseases classified elsewhere; D62 Acute posthemorrhagic anemia; N13.8 Other obstructive and reflux uropathy; J38.4 Edema of larynx; F32.A Depression, unspecified; T83.511A Infection and inflammatory reaction due to indwelling urethral catheter, initial encounter; M19.90 Unspecified osteoarthritis, unspecified site; M62.838 Other muscle spasm; I95.1 Orthostatic hypotension; M48.02 Spinal stenosis, cervical region; E86.0 Dehydration; F41.9 Anxiety disorder, unspecified; H81.10 Benign paroxysmal vertigo, unspecified ear; K58.2 Mixed irritable bowel syndrome; S02.40DD Maxillary fracture, left side, subsequent encounter for fracture with routine healing; S06.9X9D Unspecified intracranial injury with loss of consciousness of unspecified duration, subsequent encounter; R33.8 Other retention of urine; N40.1 Benign prostatic hyperplasia with lower urinary tract symptoms; Z98.1 Arthrodesis status; R13.13 Dysphagia, pharyngeal phase; Z87.891 Personal history of nicotine dependence; G47.00 Insomnia, unspecified; R32 Unspecified urinary incontinence; Z79.899 Other long term (current) drug therapy; R29.6 Repeated falls; N39.0 Urinary tract infection, site not specified; B96.89 Other specified bacterial agents as the cause of diseases classified elsewhere
CPT/HCPCS: 36415; 72040; 74230; 80048; 80076; 81001; 82274; 82533; 83735; 84100; 84153; 84443; 85014; 85018; 85027; 87077; 87086; 87088; 87186; 92507; 92522; 92526; 92610; 92611; 92612; 93005; 97110; 97112; 97116; 97129; 97162; 97166; 97530; 97535; 97542; 97760; 97802; 97803; A4216; G0103; J0834

== ENCOUNTER → 2024-05-25 | Outpatient (CLI) | payer MEDICARE, OTHER, SELFPAY ==
--- NOTE | 2024-05-25 13:55 | RAD_ITS ---
PROCEDURE: Abdominal radiographs, two views 05/25/2024 REASON FOR EXAM: Evaluate for constipation. No clinical history provided TECHNIQUE: Two views of the abdomen were obtained. COMPARISON: 09/18/2020 FINDINGS: Two views of the abdomen were obtained. The bones are osteopenic with degenerative changes in the spine. Some coarse markings at the lung bases, greatest on the right, similar to the 2020 study. No grossly dilated bowel segments. Mild stool in the colon. There is a focal bolus of stool in the central pelvis measuring 9.5 cm transverse. RAD/Abdomen Single View IMPRESSION: No grossly dilated bowel segments. Mild stool in the colon. There is a 9.5 cm transverse dimension bolus of stool in the central pelvis, co ncerning for developing fecal impaction. Reading Location: [facility]
== END | disposition home or self-care (01) ==
LOC: RAD 13:44
PROVIDERS: PCP Family Medicine; Referring Provider Nurse Practitioner Acute Care; Visit Provider Nurse Practitioner Acute Care
DX: K59.00 Constipation, unspecified (principal)
CPT/HCPCS: 74018

== ENCOUNTER → 2024-07-20 | Outpatient (CLI) | payer MEDICARE, OTHER, SELFPAY ==
--- NOTE | 2024-07-20 16:31 | RAD_ITS ---
PROCEDURE: WRIST MIN 3 VIEWS 07/20/2024 REASON FOR EXAM: L WRIST PAIN AND SWELLING. TECHNIQUE: 2 view(s) of the left wrist COMPARISON: None. FINDINGS: Mild soft tissue edema and swelling. Well corticated bone fragment adjacent to the ulnar styloid process, chronic finding. Mild osteopenia of the visualized bones. Degenerative joint disease. No fracture or dislocation is seen. No lytic or blastic bone lesion is noted. RAD/Wrist min 3 Views IMPRESSION: Mild soft tissue edema and swelling. No evidence for acute bone abnormality. Reading [facility]
[2024-07-20 18:17] LABS: Cholesterol 185 mg/dL (<=200); High Density Lipoprotein 53 mg/dL; Low Density Lipoprotein Calc. 105 mg/dL; Triglycerides 136 mg/dL; Very Low Density Lipoprotein 27 mg/dL (5-40); Vitamin D,25 Hydroxy 45.1 ng/mL (30-100); cholesterol:hdl ratio screen 3.52
[2024-07-20 18:36] LABS: Absolute Lymphocyte Count 2.92 X10^3/uL (0.83-4.51); Absolute Neutrophil Count 4.3 X10^3/uL (2.0-7.7); Basophil# 0.05 X10^3/uL; Basophil% 0.6 % (0-1); Eosinophil# 0.27 X10^3/uL; Eosinophils% 3.3 % (0-5); Hematocrit 40.4 % (40-54); Hemoglobin 13.3 g/dL (13.0-16.5); Lymphocyte # 2.92 X10^3/ul (0.83-4.51); Lymphocyte % 35.4 % (19-41); Mean Corp Hgb Conc 32.9 g/dL (32-36); Mean Corpuscular Hgb 29.4 pg (27.0-32.0); Mean Corpuscular Volume 89.2 fL (80-94); Mean Platelet Vol. 9.1 fl (6.2-12.0); Monocyte# 0.69 X10^3/uL; Monocyte% 8.4 % (0-10); NRBC Flagged by Analyzer 0 % (0-5); Neutrophil % 52.1 % (47-70); Platelet Count 242 K/mm3 (150-450); RBC Distribution Width CV 13.1 % (11.6-14.6); Red Blood Count 4.53 M/mm3 (4.6-6.2); White Blood Count 8.3 K/mm3 (4.4-11.0)
[2024-07-20 18:52] LABS: ALB/GLOB Ratio 1.6 RATIO (0.9-2.4); AST(SGOT) 30 U/L (<=37); Alanine Aminotransfer ALT/SGPT 33 U/L (<=46); Albumin, Serum 4.3 g/dL (3.4-4.8); Alkaline Phosphatase 133 U/L (40-129); Anion Gap 13 (5-15); BUN 14 mg/dL (4-19); BUN/Creat Ratio 12.9 RATIO (10-20); Calcium,Total 9.6 mg/dL (7.6-11.0); Carbon Dioxide 24.7 mmol/L (21.0-32.0); Chloride 104 mmol/L (98-108); Creatinine, Serum 1.07 mg/dL (0.70-1.20); EST Glomerular Filtration Rate 69 (>60); Globulin 2.6 g/dL (2.2-4.2); Glucose 86 mg/dL (70-99); Potassium 4.3 mmol/L (3.3-5.1); Protein, Total 6.9 g/dL (5.9-8.4); Sodium Level 142 mmol/L (133-145); Total Bilirubin 0.44 mg/dL (0.00-1.30)
== END | disposition home or self-care (01) ==
PROVIDERS: PCP Family Medicine; Referring Provider Family Medicine; Visit Provider Family Medicine
DX: Z13.220 Encounter for screening for lipoid disorders (principal); E55.9 Vitamin D deficiency, unspecified; Z13.1 Encounter for screening for diabetes mellitus; R42 Dizziness and giddiness; M25.532 Pain in left wrist
CPT/HCPCS: 36415; 73110; 80053; 80061; 82306; 84443; 85025

== ENCOUNTER 2024-08-05 11:31 | Inpatient (IN) | payer MEDICARE, OTHER, SELFPAY ==
[2024-08-05] VITALS (8 sets, daily range): BP systolic 108–187; BP diastolic 72–104; PULSE 67–78; RESP 15–18; TEMP 36.5–36.9; O2SAT 97–100; BMI 24.7; BMI 24.0
--- OUTSIDE RECORDS SUMMARY | 2024-08-05 11:57 | XMS RPT_ITS | CCD ---
Author Organization [facility] Care Team Providers Care Collections Agent Name Role Phone JORGE L CARTER Unavailable Unavailable KWABENA MENJIVAR Unavailable Unavailable BAO CERVANTES Unavailable Unavailable KWABENA MENJIVAR Unavailable Unavailable Otto CABELLO, Dr. Brown Primary Care Provider Mark CABELLO, Dr. Sterling Attending Provider Mark CABELLO, Dr. Sterling Emergency Provider [phone] David Granados MD Attending Provider Dr. Laureano Gallagher DO Emergency Provider Dr. Keanu Alfred DO Admit Provider Dr. Keanu Alfred DO Attending Provider Dr. Keanu Alfred DO Other Provider Dr. Yas Godinez MD Attending Provider Dr. Yas Godinez MD Other Provider Dr. Keanu Alrfed DO Attending Provider Dr. Danette Sargent MD Attending Provider Dr. Ciro Diego MD Other Provider Dr. Harish Baxter MD Attending Provider Dr. Ciro Diego MD Attending Provider Dr. David Granados MD Referring Provider Dr. Harish Baxter MD Other Provider Anita SUE-C, Ana Rosa Snyder Attending Provider Dr. Harish Baxter MD Referring Provider Sementi DO, Dr. Corazon Pacheco Admit Provider Sementi DO, Dr. Corazon Pacheco Attending Provide r Sementi DO, Dr. Corazon Pacheco Referring Provide r Sementi DO, Dr. Corazon Pacheco Other Provider Awa Gamble Attending Provider Tima BREWER, Dr. Colunga Referring Provider Keven Etienne MD Attending Provider Unavaila kamlesh Menjivar MD, Dr. Brown Referring Provider Sukhi ART HISTORIAN-C, Sonia Attending Provider Sukhi ART HISTORIAN-C, Sonia Referring Provider Otto CABELLO, Dr. Brown Primary Care Provider Kaylah BREWER, Dr. Tinsley Emergency Provider Tima BREWER, Dr. Colunga Admit Provider Tima BREWER, Dr. Colunga Referring Provider Tima BREWER, Dr. Colunga Other Provider Dr. Yas Godinez MD Attending Provider Dr. Yas Godinez MD Other Provider Tima BREWER, Dr. Colunga Attending Provider Rosetta CABELLO, Dr. Samaniego Attending Provider Dr. Ciro Diego MD Other Provider Sahil CABELLO, Dr. Moreira Attending Provider Dr. Ciro Diego MD Attending Provider Dr. Harish Baxter MD Referring Provider Darwin CABELLO, Dr. Hernandez Attending Provider Dr. David Granados MD Referring Provider Sahil CABELLO, Dr. Moreira Other Provider Anita ART HISTORIAN-C, Ana Rosa Snyder Attending Provider Sementi DO, Dr. Corazon Pacheco Admit Provider Sementi DO, Dr. Corazon Pacheco Attending Provide r Sementi DO, Dr. Corazon Pacheco Referring Provide r Sementi DO, Dr. Corazon Pacheco Other Provider Awa Gamble Attending Provider Keven Etienne MD Attending Provider Unavailjacquelyn Menjivar MD, Dr. Brown Referring Provider Sukhi ART HISTORIAN-C, Sonia Attending Provider Sukhi ART HISTORIAN-C, Sonia Referring Provider Keven Etienne MD Referring Provider Unavailjacquelyn Menjivar MD, Dr. Brown Attending Provider She SUE-CAngelika Attending Provider Jaimie CABELLO, Dr. Baca Attending Provider Keven Britton Attending [facility]availabl e [facility] Keanu Alfred Admitting Unavailable [facility] Ciro Diego Consulting Unavailable Sahil, Harish Attending Unavailable SisYas david Consulting Unavailable Tima, Keanu Consulting Unavailable Sahil, Harish Consulting Unavailable Anita SUE, Ana Rosa Snyder Attending Unavailabl e [facility] Un[facility] Keven Britton Attending Unavailabl e Sementi, Corazon Pacheco Referring [facility] Semengavin, Corazon Pacheco Consulting Unavaila ble Sementi, Corazon Pacheco Attending Unavaila ble Sementi, Corazon Pacheco Admitting Unavaila ble [facility] Un[facility] Keven Britton Attending Unavailabl e Keven Britton Referring Unavailabl e [place], [place] [facility] Unavailable Otot, Kwabena Attending Unavailable [facility]erring Unavailable [facility] Unavailable Darwin, David Referring Unavailable Darwin, [place] Attending Unavailable SukhiToshiaSonia Attending Unavailable [place] [place], Christopher Referring Unavailable [place] Unavailable Corazon Wright Referring Unavaila ble Darwin David Attending Unavailable Sukhi, Sonia Referring Unavailable SukhiFayeSonia Attending Unavailable [place] [place] Unavailable Ranney, Christopher Attending Unavailable [facility] Referring Unavailable [place], [place] [facility] Unavailable Asher Flores Attending Unavailable [place], [place] [facility] Unavailable Ranney, Christopher Attending Unavailable Ranney, Christopher Referring Unavailable [place], [place] [facility] Unavailable Keven Britton Attending Unavailabl e Ciro Diego Attending Unavailable [facility] [place], [place] [facility] Unavailable She ART HISTORIANAngelika Attending Unavailable Sonia Isbell Attending Unavailable [facility] [place], [place] [facility] Unavailable [place] Referring Unavailable [place], [place] [facility] Unavailable Danette Sargent Attending Unavailabl e [place], [place] [facility] Unavailable Oledollye Bisi KIRKPATRICKbe Attending Unavailabl e [facility] Unavailable Joarvinderi Keanu Attending Unavailable Jopperi, Keanu Admitting Unavailable Jopperi, Keanu Consulting Unavailable Siska, Yas Attending Unavailable Siska, Yas Consulting Unavailable Jopperi, Keanu Referring Unavailable Diego, Ciro Consulting Unavailable Jopperi, Keanu Attending Unavailable Sahil, Harish Referring Unavailable [facility], [place] [facility] Unavailable Angelika Nowak NP Attending Unavailable [place], [place] [facility] Unavailable Ciro Diego Attending Unavailable [place], Christopher Referring Unavailable [place], [place] [facility] Unavailable Darwin, David Attending Unavailable [facility] [place], [place] [facility] Unavailable Edwar Etienneewongbe Attending Unavailable [place], [place] [facility] Unavailable Darwin, [place] Attending Unavailable Awa Chadwick Attending Unavailable Johnathon Crio Attending Unavailable Sukhi, Sonia Referring Unavailable SukhiFayeSonia Attending Unavailable [place] Unavailable Bisi Brittonbe Attending Unavailabl e [place], [place] Primary [facility] Unavailable Oleghe OLS, Efewongbe [facility]ending [facility] Un[facility] Keven Britton Attending UnavailKeven Dorman Ref[facility] Un[facility] Ciro Diego Attending Unavailable [facility] Unavailable [facility] Referring Unavailable [facility] Unavailable David Granados Attending Unavailable [facility] Unavailable Keanu Alfred Admitting Unavailable Ciro Diego Consulting Unavailable Harish Baxter Attending Unavailable Yas Godinez Consulting Unavailable Keanu Alfred Consulting Unavailable [facility] Unavailable Corazon Wright Referring Unavaila ble Sementi, Corazon Pacheco Attending Unavaila ble Sementi, Corazon Pacheco Admitting Unavaila ble Medications Current Medications Medication Drug Class(es) Dates Sig (Normalized) Sig (Original) benzocaine 15 mg / menthol 3.6 mg oral lozenge (17 sources) Standardized Chemical Allergen Start: 04-27-2024 End: 05-18-2024 Start: 04-27-2024 End: 05-18-2024 Benzocaine-Menthol (Sore Thr oat (Benzocaine-Menth)) 15-3.6 mg Lozenge Active 1 NMA MUCOUS MEM EVERY 2 HOURS NEEDED as needed for SORE THROAT 0 May 18, 2024 12:00am bisacodyl 10 mg rectal suppo sitory (8 sources) Stimulant Laxative Start: 05-18-2024 Start: 05-18-2024 Bisacodyl 10 m g Suppository Active 10 mg RC ONE TIME as needed for Constipation 0 May 18, 2024 12:00am calcium polycarbophil 625 mg oral tablet (7 sources) Start: 05-25-2024 carboxymethylcellulose sodiu m 5 mg/ml ophthalmic solution (17 sources) Start: 04-27-2024 End: 05-18-2024 Digestive Enzymes (3 sources) Start: 11-26-2020 take 1 capsule by mouth three times daily at mealtime Digestive Enzymes Active 1 CAP PO 3 times per day with meals November 26, 2020 12:00am may open cap/sprinkle on applesauce;do not chew docusate sodium 50 mg / sennosides, long-term 8.6 mg oral tablet (9 sources) Start: 04-27-2024 Start: 04-27-2024 Sennosides-Doc usate Sodium (Stimulant Laxative Plus) 8.6-50 mg Tablet Active 2 {tbl} PO TWICE A DAY April 27, 2024 12:00am Food Supplemt, Lactose-Reduc ed (Ensure Plus High Protein) 0.08 gram-1.5 kcal/mL Liquid (5 sources) Start: 05-18-2024 Food Supplemt, Lactose-Reduced (Ensure Plus High Protein) 0.08 gram-1.5 kcal/mL Liquid Active 120 mL PO 4 TIMES DAILY 0 May 18, 2024 12:00am Start: 04-27-2024 End: 05-18-2024 Food Supplemt, Lactose-Reduc ed (Ensure Plus High Protein) 0.08 gram-1.5 kcal/mL Liquid Discontinued 120 mL PO 3 TIMES DAILY WITH MEALS April 27, 2024 12:00am May 18, 2024 8:58am Start: 04-27-2024 Food Supplemt, Lactose-Reduced (Ensure Plus High Protein) 0.08 gram-1.5 kcal/mL Liquid Active 120 mL PO 3 TIMES DAILY WITH MEALS April 27, 2024 12:00am gabapentin 100 mg oral capsule (8 sources) Anti-epileptic Agent Start: 05-18-2024 Hydrocortisone Acetate (Anusol-Hc) 25 mg suppository (1 source) Start: 05-25-2024 Hydrocortisone Acetate (Anusol-Hc) 25 mg suppository Active 25 mg RC AT BEDTIME May 25, 2024 12:00am Magnesium Hydroxide (2 sources) Start: 05-18-2024 take 1 mL by mouth once as needed for constipation Magnesium Hydroxide 400 mg/5 mL Suspension Active 30 mL PO ONE TIME as needed for Constipation 0 May 18, 2024 12:00am Menthol / Zinc Oxide (2 sources) Start: 05-18-2024 Menthol-Zinc Oxide (Calmoseptine) 0.44-20.6 % Ointment Active 1 NMA TOPICAL TWICE A DAY May 18, 2024 12:00am Please contact the information source for Protocol details. midodrine hydrochloride 5 mg oral tablet (17 sources) alpha-Adrenergic Agonist Start: 05-18-2024 Midodrine 5 mg Tablet Active 10 mg PO 0700,1100,1500 0 May 18, 2024 12:00am Start: 04-27-2024 End: 05-18-2024 mirtazapine 15 mg oral table t (8 sources) Start: 05-18-2024 Start: 05-18-2024 take 1 tablet by emily th at bedtime Mirtazapine 15 mg Tablet Active 15 mg PO AT BEDTIME 0 May 18, 2024 12:00am Yarnell (Nk) (1 source) Start: 02-26-2024 Yarnell (Nk) A ctive February 26, 2024 1:00am pantoprazole 40 mg delayed release oral tablet (17 sources) Proton Pump Inhibitor Start: 05-18-2024 Start: 04-27-2024 End: 05-18-2024 (20 sources) Start: 05-25-2024 Start: 05-18-2024 Start: 04-27-2024 End: 05-18-2024 Start: 11-26-2020 End: 02-26-2024 Completed/Discontinued Medications Medication Drug Class(es) Dates Sig (Normalized) Sig (Original) acetaminophen 500 mg oral tablet (17 sources) Start: 05-18-2024 End: 06-01-2024 Start: 04-27-2024 End: 05-18-2024 diazePAM 2 mg oral tablet (9 sources) Benzodiazepine Start: 04-27-2024 End: 05-18-2024 dicyclomine hydrochloride 10 mg oral capsule (13 sources) Anticholinergic Start: 2020 End: 02-26-2024 Digestive Enzymes capsule (4 sources) Start: 11-26-2020 End: 02-26-2024 take 1 capsule by mouth three times daily at mealtime Digestive Enzymes capsule Discontinued 1 NMA PO 3 times per day with meals November 26, 2020 12:00am February 26, 2024 11:06am may open cap/sprinkle on applesauce;do not chew doxycycline hyclate 100 mg oral capsule (13 sources) Tetracycline-class Drug Start: 11-26-2020 End: 02-26-2024 famotidine 20 mg oral tablet (13 sources) Histamine-2 Receptor Antagonist Start: 2020 End: 02-26-2024 Start: 2020 End: 02-26-2024 take 1 tablet by mouth at bedtime Famotidine 20 mg tablet Discontinued 20 mg PO AT BEDTIME 2020 12:00am February 26, 2024 11:06am Take one tablet at bedtime. FLUoxetine 20 mg oral capsul e (13 sources) Serotonin Reuptake Inhibitor Start: 09-15-2020 End: 02-26-2024 Start: 09-15-2020 take 30 mg by mouth once daily Fluoxetine Active 30 MG PO DAILY September 15, 2020 12:00am meclizine hydrochloride 25 m g oral tablet (9 sources) Antiemetic Start: 04-27-2024 End: 05-18-2024 meloxicam 15 mg oral tablet (9 sources) Nonsteroidal Anti-inflammatory Drug Start: 04-27-2024 End: 05-18-2024 methocarbamol 500 mg oral ta blet (9 sources) Muscle Relaxant Start: 04-27-2024 End: 05-18-2024 omeprazole 20 mg delayed rel ease oral capsule (20 sources) Proton Pump Inhibitor Start: 2020 End: 02-26-2024 Start: 11-12-2020 End: 2020 oxyCODONE hydrochloride 5 mg oral tablet (9 sources) Opioid Agonist Start: 04-27-2024 End: 05-18-2024 sucralfate 100 mg/ml oral velasquez spension (13 sources) Aluminum Complex Start: 01-17-2021 End: 02-26-2024 tamsulosin hydrochloride 0.4 mg oral capsule (9 sources) alpha-Adrenergic Maria Del Carmen Start: 04-27-2024 End: 05-18-2024 Problems Active Problems Problem Classification Problem Date Documented Da te Episodic/Chronic Abdominal hernia (20 sources) Hernia of anterior abdominal wall; Translations: [Ventral hernia without obstruction or gangrene] Onset: 02-28-2021 Episodic Comment on above: Has an abd binder bu t, not using and did not know why he was given the binder. Abdominal pain (10 sources) Finding of sensation of abdomen; Translations: [Unspecified abdominal pain] 09-19-2020 Episodic Acute posthemorrhagic anemia (17 sources) Anemia following acute postoperative blood loss; Translations: [Acute posthemorrhagic anemia] Onset: 5 04-28-2024 Episodic Anxiety disorders (20 sources) Anxiety; Translations: [Anxiety disorder, unspecified] Onset: 5 05-10-2024 Chronic Comment on above: On Prozac in 2020 bu t, he quit taking this medication because he though it gave him diarrhea. Conditions associated with dizziness or vertigo (20 sources) Benign paroxysmal positional vertigo; Translations: [Benign paroxysmal vertigo, unspecified ear] Onset: 5 05-10-2024 Episodic Comment on above: and has also had syn cope. E Codes: Fall (20 sources) Fall; Translations: [Unspecified fall, initial encounter] Onset: 5 04-19-2024 Episodic Esophageal disorders (20 sources) Gastro-esophageal reflux disease with esophagitis; Translations: [Gastroesophageal reflux disease with esophagitis] Onset: 5 04-28-2024 Chronic Comment on above: Non-compliant with P PI or H2 Esophageal disorders (1 source) Esophageal disorders; Translations: [Gastro-esophageal reflux disease with esophagitis, without bleeding] Onset: Essential hypertension (20 sources) Hypertensive disorder; Translations: [Essential (primary) hypertension] 04-19-2024 Chronic Fluid and electrolyte disorders (17 sources) Severe dehydration; Translations: [Dehydration] Onset: 5 04-28-2024 Episodic Genitourinary symptoms and ill-defined conditions (17 sources) Urinary incontinence; Translations: [Unspecified urinary incontinence] Onset: 5 04-28-2024 Chronic Genitourinary symptoms and ill-defined conditions (20 sources) Delay when starting to pass urine; Translations: [Hesitancy of micturition] Onset: 5 09-15-2020 Episodic Hyperplasia of prostate (9 sources) Benign prostatic hyperplasia; Translations: [Benign prostatic hyperplasia without lower urinary tract symptoms] Onset: 5 05-20-2024 Chronic Intestinal obstruction without hernia (13 sources) Fecal impaction; Translations: [Fecal impaction] 10-14-2018 Episodic Intracranial injury (17 sources) Traumatic brain injury with loss of consciousness; Translations: [Unspecified intracranial injury with loss of consciousness of unspecified duration, initial encounter] Onset: 5 04-28-2024 Episodic Malaise and fatigue (17 sources) Asthenia; Translations: [Other malaise] Onset: 5 04-28-2024 Episodic Mood disorders (1 source) Mood disorders; Translations: [Depression, unspecified] Onset: Open wounds of head; neck; and trunk (10 sources) Laceration of eyebrow; Translations: [Laceration without foreign body of unspecified eyelid and periocular area, initial encounter] 03-05-2024 Episodic Osteoarthritis (17 sources) Osteoarthritis; Translations: [Unspecified osteoarthritis, unspecified site] Onset: 5 05-10-2024 Chronic Other aftercare (1 source) Encounter for other orthopedic aftercare; Translations: [Encounter for other orthopedic aftercare] Onset: Episodic Other circulatory disease (16 sources) Orthostatic hypotension; Translations: [Orthostatic hypotension] 04-28-2024 Episodic Other circulatory disease (1 source) Orthostatic hypotension; Translations: [Orthostatic hypotension] Onset: Episodic Other connective tissue disease (10 sources) Muscle weakness of upper limb; Translations: [Other symptoms and signs involving the musculoskeletal system] 04-19-2024 Episodic Other connective tissue disease (16 sources) Spasm; Translations: [Other muscle spasm] 05-10-2024 Episodic Other connective tissue disease (16 sources) Bilateral weakness of upper limbs; Translations: [Other symptoms and signs involving the musculoskeletal system] 04-28-2024 Episodic Comment on above: LAKESHIA is flaccid with muscle atrophy Other connective tissue disease (16 sources) Recurrent falls ; Translations: [Repeated falls] 05-10-2024 Episodic Other connective tissue disease (20 sources) History of cervical spine fusion; Translations: [Arthrodesis status] 04-28-2024 Episodic Comment on above: 04/26/[address] Tate Diego. C3-C6 anterior cervical depression and fusion Other connective tissue disease (2 sources) Arthrodesis status; Translations: [Arthrodesis status] Onset: Episodic Other connective tissue disease (1 source) Repeated falls; Translations: [Repeated falls] Onset: Episodic Other connective tissue disease (1 source) Other muscle spasm; Translations: [Other muscle spasm] Onset: 5 Episodic Other connective tissue disease (1 source) Other symptoms and signs involving the musculoskeletal system; Translations: [Other symptoms and signs involving the musculoskeletal system] Onset: 5 Episodic Other eye disorders (20 sources) Subconjunctival hemorrhage; Translations: [Conjunctival hemorrhage, unspecified eye] 04-19-2024 Episodic Other eye disorders (1 source) Conjunctival hemorrhage, unspecified eye; Translations: [Conjunctival hemorrhage, unspecified eye] Onset: 5 Episodic Other gastrointestinal disorders (5 sources) Irritable bowel syndrome with diarrhea; Translations: [Irritable bowel syndrome with diarrhea] 11-26-2020 Chronic Other gastrointestinal disorders (5 sources) H/O: gastrointestinal disease; Translations: [Personal history of other diseases of the digestive system] 09-19-2020 Episodic Other gastrointestinal disorders (20 sources) Dysphagia; Translations: [Dysphagia, unspecified] 10-25-2020 Episodic Comment on above: predated recent ACDF so acute on chronic Other gastrointestinal disorders (5 sources) Diarrhea; Translations: [Diarrhea, unspecified] 10-25-2020 Episodic Other gastrointestinal disorders (16 sources) History of irritable bowel syndrome; Translations: [Personal history of other diseases of the digestive system] 04-28-2024 Episodic Comment on above: With alternating florin rrhea and constipation Other gastrointestinal disorders (20 sources) Incontinence of feces; Translations: [Full incontinence of feces] Episodic Other gastrointestinal disorders (20 sources) Constipation; Translations: [Constipation, unspecified] Episodic Other gastrointestinal disorders (1 source) Constipation, unspecified; Translations: [Constipation, unspecified] Onset: 5 Episodic Other gastrointestinal disorders (1 source) Full incontinence of feces; Translations: [Full incontinence of feces] Onset: 5 Episodic Other gastrointestinal disorders (1 source) Dysphagia, unspecified; Translations: [Dysphagia, unspecified] Onset: Episodic Other gastrointestinal disorders (1 source) Personal history of other diseases of the digestive system; Translations: [Personal history of other diseases of the digestive system] Onset: 5 Episodic Other gastrointestinal disorders (1 source) Dysphagia, pharyngeal phase; Translations: [Dysphagia, pharyngeal phase] Onset: 04-11-202 5 Episodic Other injuries and conditions due to external causes (10 sources) Closed injury of head; Translations: [Unspecified injury of head, initial encounter] 03-05-2024 Episodic Other nervous system disorders (20 sources) Cervical myelopathy; Translations: [Disease of spinal cord, unspecified] 04-21-2024 Chronic Comment on above: acute on chronic. velasquez spect has chronic cervical stenosis with myelomalacia but, likely exacerbated with recent fall/head and neck trauma and ACDF Other nervous system disorders (16 sources) Myelomalacia; Translations: [Other specified diseases of spinal cord] 04-28-2024 Chronic Other nervous system disorders (1 source) Other specified diseases of spinal cord; Translations: [Other specified diseases of spinal cord] Onset: Chronic Other nervous system disorders (1 source) Other chronic pain; Translations: [Other chronic pain] Onset: Chronic Other nervous system disorders (1 source) Disease of spinal cord, unspecified; Translations: [Disease of spinal cord, unspecified] Onset: Chronic Other non-traumatic joint disorders (20 sources) Chronic pain of left upper limb; Translations: [Pain in left shoulder] 04-19-2024 Episodic Comment on above: Left shoulder sublux ation secondary to muscle atrophy Other non-traumatic joint disorders (1 source) Pain in left shoulder; Translations: [Pain in left shoulder] Onset: Episodic Other screening for suspected conditions (not mental disorders or infectious disease) (1 source) Encounter for screening for lipoid disorders; Translations: [Encounter for screening for lipoid disorders] Onset: Episodic Other upper respiratory disease (20 sources) Bleeding from nose; Translations: [Epistaxis] 04-19-2024 Episodic Other upper respiratory disease (16 sources) Edema of larynx; Translations: [Edema of larynx] 05-02-2024 Episodic Comment on above: Due to chronic untre ated reflux. Other upper respiratory disease (1 source) Edema of larynx; Translations: [Edema of larynx] Onset: Episodic Skull and face fractures (20 sources) Fracture of bone of nasal sinus; Translations: [Maxillary fracture, left side, initial encounter for closed fracture] Onset: 5 04-19-2024 Episodic Spondylosis; intervertebral disc disorders; other back problems (2 sources) Other cervical disc degeneration, unspecified cervical region; Translations: [Degeneration of cervical intervertebral disc] Onset: Chronic Spondylosis; intervertebral disc disorders; other back problems (20 sources) Stenosis of intervertebral foramina; Translations: [Spinal stenosis, cervical region] Onset: 5 04-28-2024 Episodic Superficial injury; contusion (20 sources) Contusion of knee; Translations: [Contusion of unspecified knee, initial encounter] 03-05-2024 Episodic Syncope (12 sources) Syncope; Translations: [Syncope and collapse] Onset: 5 04-19-2024 Episodic Comment on above: AT TIMES Unclassified (2 sources) Esophagitis/laryngitis Unclassified (1 source) R15.9 - Full incontinence of feces,K59.00 - Constipation, unspecified Urinary tract infections (17 sources) Urinary tract infectious disease; Translations: [Urinary tract infection, site not specified] Onset: 5 05-10-2024 Episodic Past or Other Problems Problem Classification Problem Date Documented Da te Episodic/Chronic Other injuries and conditions due to external causes (1 source) Encounter for examination and observation following other accident; Translations: [Encounter for examination and observation following other accident] Onset: 05-03-2024 Episodic Results Test Name Value Interpretation Reference Range Facility Cerv Spine 2 or 3 Viewson Cerv Spine 2 or 3 Views Normal [facility] Orthopedic Visit Reporton Orthopedic Visit Report Normal [facility] Absolute lymphocyte countOrd ered By: Kwabena Menjivar on 07-20-2024 Lymphocytes Auto (Unsp spec) [#/Vol] 2.92 10*3/uL 0.83-4.51 [facility] Anion gap in Serum or Plasma Ordered By: Kwabena Menjivar on 07-20-2024 Anion gap [Moles/Vol] 13 mmol/L 5-15 [facility] Automated lymphocyte count a s percentage of total leukocytesOrdered By: Kwabena Menjivar on 07-20-2024 Lymphocytes/100 WBC Auto (Unsp spec) 35.4 % 19-41 [facility] BUN/creatinine ratioOrdered By: Kwabena Menjivar on 07-20-2024 Urea nitrogen/Creatinine [Mass ratio] 12.9 mg/mg 10-20 [facility] Basophil percentageOrdered B y: Kwabena Menjivar on 07-20-2024 Basophils/100 WBC (Bld) 0.6 % 0-1 [facility] Bilirubin, totalOrdered By: Kwabena Menjivar on 07-20-2024 Bilirubin [Mass/Vol] 0.44 mg/dL 0.00-1.30 [facility] CBC W/Diff, Automatedon 07-09-2024 Absolute Lymph 2.92 X10 3/uL Normal 0.83-4.51 [facility] Comment on above: Order Comment: Order Date: 07/20/24Order Info: [id number] - CBCDOrder Date: 10/27/23Order Info: [id number] - CBC Performed By: #### L 100.0100, L501.9520, L400.0001, L500.4050 ####[facility] [address] [place], [address] Absolute Neut 4.3 X10 3/uL Normal 2.0-7.7 [facility] Comment on above: Order Comment: Order Date: 07/20/24Order Info: [id number] - CBCDOrder Date: 10/27/23Order Info: [id number] - CBC Performed By: #### L 100.0100, L501.9520, L400.0001, L500.4050 ####[facility] [address] [place], [address] Basophils/100 WBC (Bld) 0.6 % Normal 0-1 [facility] Comment on above: Order Comment: Order Date: 07/20/24Order Info: [id number] - CBCDOrder Date: 10/27/23Order Info: [id number] - CBC Performed By: #### L 100.0100, L501.9520, L400.0001, L500.4050 ####[facility] [address] [place], [address] Eosinophils/100 WBC (Bld) 3.3 % Normal 0-5 [facility] Comment on above: Order Comment: Order Date: 07/20/24Order Info: [id number] - CBCDOrder Date: 10/27/23Order Info: [id number] - CBC Performed By: #### L 100.0100, L501.9520, L400.0001, L500.4050 ####[facility] [address] [place], [address] Erythrocyte distribution width (RBC) [Ratio] 13.1 % Normal 11.6-14.6 [facility] Comment on above: Order Comment: Order Date: 07/20/24Order Info: [id number] - CBCDOrder Date: 10/27/23Order Info: [id number] - CBC Performed By: #### L 100.0100, L501.9520, L400.0001, L500.4050 ####[facility] [address] [place], [address] Hematocrit (Bld) [Volume fraction] 40.4 % Normal 40-54 [facility] Comment on above: Order Comment: Order Date: 07/20/24Order Info: [id number] - CBCDOrder Date: 10/27/23Order Info: [id number] - CBC Performed By: #### L 100.0100, L501.9520, L400.0001, L500.4050 ####[facility] [address] [place], [address] Hemoglobin (Bld) [Mass/Vol] 13.3 g/dL Normal 13.0-16.5 [facility] Comment on above: Order Comment: Order Date: 07/20/24Order Info: [id number] - CBCDOrder Date: 10/27/23Order Info: [id number] - CBC Performed By: #### L 100.0100, L501.9520, L400.0001, L500.4050 ####[facility] [address] [place], [address] IG% 0.200 Normal 0.0-0.9 [facility] Comment on above: Order Comment: Order Date: 07/20/24Order Info: 018- - CBCDOrder Date: 10/27/23Order Info: [id number] - CBC Result Comment: IG% - Immature Granulocytes (promyelocytes, myelocytes andmetamyelocytes) > 1% indicates that a LEFT SHIFT is Present. Performed By: #### L 100.0100, L501.9520, L400.0001, L500.4050 ####[facility] [address] [place], [address] Lymphocytes/100 WBC (Bld) 35.4 % Normal 19-41 [facility] Comment on above: Order Comment: Order Date: 07/20/24Order Info: 018- - CBCDOrder Date: 10/27/23Order Info: [id number] - CBC Performed By: #### L 100.0100, L501.9520, L400.0001, L500.4050 ####[facility] [address] [place], [address] MCH (RBC) [Entitic mass] 29.4 pg Normal 27.0-32.0 [facility] Comment on above: Order Comment: Order Date: 07/20/24Order Info: [id number]- - CBCDOrder Date: 10/27/23Order Info: [id number] - CBC Performed By: #### L 100.0100, L501.9520, L400.0001, L500.4050 ####[facility] [address] [place], [address] MCHC (RBC) [Mass/Vol] 32.9 g/dL Normal 32-36 [facility] Comment on above: Order Comment: Order Date: 07/20/24Order Info: [id number]- - CBCDOrder Date: 10/27/23Order Info: [id number] - CBC Performed By: #### L 100.0100, L501.9520, L400.0001, L500.4050 ####[facility] [address] [place], [address] MCV (RBC) [Entitic vol] 89.2 fL Normal 80-94 [facility] Comment on above: Order Comment: Order Date: 07/20/24Order Info: [id number]- - CBCDOrder Date: 10/27/23Order Info: [id number] - CBC Performed By: #### L 100.0100, L501.9520, L400.0001, L500.4050 ####[facility] [address] [place], [address] Monocytes/100 WBC (Bld) 8.4 % Normal 0-10 [facility] Comment on above: Order Comment: Order Date: 07/20/24Order Info: [id number]- - CBCDOrder Date: 10/27/23Order Info: [id number] - CBC Performed By: #### L 100.0100, L501.9520, L400.0001, L500.4050 ####[facility] [address] [place], [address] Neutrophils/100 WBC (Bld) 52.1 % Normal 47-70 [facility] Comment on above: Order Comment: Order Date: 07/20/24Order Info: [id number] - CBCDOrder Date: 10/27/23Order Info: [id number] - CBC Performed By: #### L 100.0100, L501.9520, L400.0001, L500.4050 ####[facility] [address] [place], [address] Nucleated RBC (Bld) [#/Vol] 0 10*3/uL Normal 0-5 [facility] Comment on above: Order Comment: Order Date: 07/20/24Order Info: [id number] - CBCDOrder Date: 10/27/23Order Info: [id number] - CBC Performed By: #### L 100.0100, L501.9520, L400.0001, L500.4050 ####[facility] [address] [place], [address] Platelet mean volume (Bld) [Entitic vol] 9.1 fL Normal 6.2-12.0 [facility] Comment on above: Order Comment: Order Date: 07/20/24Order Info: [id number] - CBCDOrder Date: 10/27/23Order Info: [id number] - CBC Performed By: #### L 100.0100, L501.9520, L400.0001, L500.4050 ####[facility] [address] [place], [address] Platelets (Bld) [#/Vol] 242 10*3/uL Normal 150-450 [facility] Comment on above: Order Comment: Order Date: 07/20/24Order Info: [id number] - CBCDOrder Date: 10/27/23Order Info: [id number] - CBC Performed By: #### L 100.0100, L501.9520, L400.0001, L500.4050 ####[facility] [address] [place], [address] RBC (Bld) [#/Vol] 4.53 10*6/uL Low 4.6-6.2 [facility] Comment on above: Order Comment: Order Date: 07/20/24Order Info: [id number] - CBCDOrder Date: 10/27/23Order Info: [id number] - CBC Performed By: #### L 100.0100, L501.9520, L400.0001, L500.4050 ####[facility] [address] [place], [address] RDW SD 43.0 fl Normal 35.1-43.9 [facility] Comment on above: Order Comment: Order Date: 07/20/24Order Info: [id number] - CBCDOrder Date: 10/27/23Order Info: [id number] - CBC Performed By: #### L 100.0100, L501.9520, L400.0001, L500.4050 ####[facility] [address] [place], [address] WBC (Bld) [#/Vol] 8.3 10*3/uL Normal 4.4-11.0 [facility] Comment on above: Order Comment: Order Date: 07/20/24Order Info: [id number] - CBCDOrder Date: 10/27/23Order Info: [id number] - CBC Performed By: #### L 100.0100, L501.9520, L400.0001, L500.4050 ####[facility] [address] [place], [address] Calculated very low density lipoprotein (VLDL) cholesterol measurementOrdered By: Kwabena Menjivar on 07-20-2024 Calculated very low density lipoprotein (VLDL) cholesterol measurement 27 mg/dL 5-40 [facility] Carbon dioxide, total [Moles /volume] in Central venous bloodOrdered By: wKabena Menjivar on 07-20-2024 CO2 [Moles/Vol] 24.7 mmol/L 21.0-32.0 [facility] Chloride assayOrdered By: Kristine Menjivar on 07-20-2024 Chloride [Moles/Vol] 104 mmol/L 98-108 [facility] Comprehensive Metabolic Prof ilon 07-20-2024 Albumin [Mass/Vol] 4.3 g/dL Normal 3.4-4.8 [facility] Comment on above: Order Comment: Order Date: 10/27/23Order Info: [id number] - BMPOrder Date: 07/20/24Order Info: [id number] - CMPOrder Info: [id number] - LIPIDOrder Info: [id number] - TSH Performed By: #### L 100.0100, L501.9520, L400.0001, L500.4050 ####[facility] [address] [place], [address] Albumin/Globulin [Mass ratio] 1.6 {ratio} Normal 0.9-2.4 [facility] Comment on above: Order Comment: Order Date: 10/27/23Order Info: 666- - BMPOrder Date: 07/20/24Order Info: [id number] - CMPOrder Info: [id number] - LIPIDOrder Info: [id number] - TSH Performed By: #### L 100.0100, L501.9520, L400.0001, L500.4050 ####[facility] [address] [place], [address] ALK PHOS 133 U/L High 40-129 [facility] Comment on above: Order Comment: Order Date: 10/27/23Order Info: 666- - BMPOrder Date: 07/20/24Order Info: 785- - CMPOrder Info: [id number] - LIPIDOrder Info: 6-3 - TSH Performed By: #### L 100.0100, L501.9520, L400.0001, L500.4050 ####[facility] [address] [place], [address] ALT [Catalytic activity/Vol] 33 U/L Normal <=46 [facility] Comment on above: Order Comment: Order Date: 10/27/23Order Info: [id number] - BMPOrder Date: 07/20/24Order Info: 785- - CMPOrder Info: [id number] - LIPIDOrder Info: [id number] - TSH Performed By: #### L 100.0100, L501.9520, L400.0001, L500.4050 ####[facility] [address] [place], [address] AST [Catalytic activity/Vol] 30 U/L Normal <=37 [facility] Comment on above: Order Comment: Order Date: 10/27/23Order Info: 666- - BMPOrder Date: 07/20/24Order Info: 785- - CMPOrder Info: [id number] - LIPIDOrder Info: [id number] - TSH Performed By: #### L 100.0100, L501.9520, L400.0001, L500.4050 ####[facility] [address] [place], [address] Bilirubin [Mass/Vol] 0.44 mg/dL Normal 0.00-1.30 [facility] Comment on above: Order Comment: Order Date: 10/27/23Order Info: 666- - BMPOrder Date: 07/20/24Order Info: [id number] - CMPOrder Info: [id number] - LIPIDOrder Info: [id number] - TSH Performed By: #### L 100.0100, L501.9520, L400.0001, L500.4050 ####[facility] [address] [place], [address] BUN/CRE 12.9 RATIO Normal 10-20 [facility] Comment on above: Order Comment: Order Date: 10/27/23Order Info: 666- - BMPOrder Date: 07/20/24Order Info: 785- - CMPOrder Info: [id number] - LIPIDOrder Info: [id number] - TSH Performed By: #### L 100.0100, L501.9520, L400.0001, L500.4050 ####[facility] [address] [place], [address] Calcium [Mass/Vol] 9.6 mg/dL Normal 7.6-11.0 [facility] Comment on above: Order Comment: Order Date: 10/27/23Order Info: 666- - BMPOrder Date: 07/20/24Order Info: 86-1 - CMPOrder Info: [id number] - LIPIDOrder Info: [id number] - TSH Performed By: #### L 100.0100, L501.9520, L400.0001, L500.4050 ####[facility] [address] [place], [address] Chloride [Moles/Vol] 104 mmol/L Normal 98-108 [facility] Comment on above: Order Comment: Order Date: 10/27/23Order Info: 666- - BMPOrder Date: 07/20/24Order Info: 07-1 - CMPOrder Info: [id number] - LIPIDOrder Info: [id number] - TSH Performed By: #### L 100.0100, L501.9520, L400.0001, L500.4050 ####[facility] [address] [place], [address] CO2 [Moles/Vol] 24.7 mmol/L Normal 21.0-32.0 [facility] Comment on above: Order Comment: Order Date: 10/27/23Order Info: 666- - BMPOrder Date: 07/20/24Order Info: 785-1 - CMPOrder Info: [id number] - LIPIDOrder Info: [id number] - TSH Performed By: #### L 100.0100, L501.9520, L400.0001, L500.4050 ####[facility] [address] [place], [address] Creatinine [Mass/Vol] 1.07 mg/dL Normal 0.70-1.20 [facility] Comment on above: Order Comment: Order Date: 10/27/23Order Info: 666- - BMPOrder Date: 07/20/24Order Info: 785- - CMPOrder Info: [id number] - LIPIDOrder Info: [id number] - TSH Performed By: #### L 100.0100, L501.9520, L400.0001, L500.4050 ####[facility] [address] [place], [address] GAP 13 Normal 5-15 [facility] Comment on above: Order Comment: Order Date: 10/27/23Order Info: 666- - BMPOrder Date: 07/20/24Order Info: 07- - CMPOrder Info: [id number] - LIPIDOrder Info: [id number] - TSH Performed By: #### L 100.0100, L501.9520, L400.0001, L500.4050 ####[facility] [address] [place], [place], [id number] GFR/1.73 sq M.predicted among non-blacks MDRD (S/P/Bld) [Vol rate/Area] 69 mL/min/{1.73_m2} Normal >60 [facility] Comment on above: Order Comment: Order Date: 10/27/23Order Info: 06-1 - BMPOrder Date: 07/20/24Order Info: [id number] - CMPOrder Info: [id number] - LIPIDOrder Info: [id number] - TSH Result Comment: mL/m in/1.73m2 CKD-EPI Creatinine Equation (2020) Performed By: #### L 100.0100, L501.9520, L400.0001, L500.4050 ####[facility] [address] [place], [address] Globulin (S) [Mass/Vol] 2.6 g/dL Normal 2.2-4.2 [facility] Comment on above: Order Comment: Order Date: 10/27/23Order Info: 666- - BMPOrder Date: 07/20/24Order Info: 86-1 - CMPOrder Info: [id number] - LIPIDOrder Info: [id number] - TSH Performed By: #### L 100.0100, L501.9520, L400.0001, L500.4050 ####[facility] [address] [place], [address] Glucose [Mass/Vol] 86 mg/dL Normal 70-99 [facility] Comment on above: Order Comment: Order Date: 10/27/23Order Info: 666-1 - BMPOrder Date: 07/20/24Order Info: [id number] - CMPOrder Info: [id number] - LIPIDOrder Info: [id number] - TSH Performed By: #### L 100.0100, L501.9520, L400.0001, L500.4050 ####[facility] [address] [place], [address] Potassium [Moles/Vol] 4.3 mmol/L Normal 3.3-5.1 [facility] Comment on above: Order Comment: Order Date: 10/27/23Order Info: [id number] - BMPOrder Date: 07/20/24Order Info: 785-1 - CMPOrder Info: [id number] - LIPIDOrder Info: [id number] - TSH Performed By: #### L 100.0100, L501.9520, L400.0001, L500.4050 ####[facility] [address] [place], [address] Sodium [Moles/Vol] 142 mmol/L Normal 133-145 [facility] Comment on above: Order Comment: Order Date: 10/27/23Order Info: [id number] - BMPOrder Date: 07/20/24Order Info: 785- - CMPOrder Info: [id number] - LIPIDOrder Info: 6-3 - TSH Performed By: #### L 100.0100, L501.9520, L400.0001, L500.4050 ####[facility] [address] [place], [address] T PROT 6.9 g/dL Normal 5.9-8.4 [facility] Comment on above: Order Comment: Order Date: 10/27/23Order Info: [id number] - BMPOrder Date: 07/20/24Order Info: 785- - CMPOrder Info: [id number] - LIPIDOrder Info: [id number] - TSH Performed By: #### L 100.0100, L501.9520, L400.0001, L500.4050 ####[facility] [address] [place], [address] Urea nitrogen [Mass/Vol] 14 mg/dL Normal 4-19 [facility] Comment on above: Order Comment: Order Date: 10/27/23Order Info: 666- - BMPOrder Date: 07/20/24Order Info: [id number] - CMPOrder Info: [id number] - LIPIDOrder Info: [id number] - TSH Performed By: #### L 100.0100, L501.9520, L400.0001, L500.4050 ####[facility] [address] [place], [place], [address] Eosinophil percentageOrdered By: Kwabena Menjivar on 07-20-2024 Eosinophils/100 WBC (Bld) 3.3 % 0-5 [facility] Erythrocyte distribution wid th ratioOrdered By: Kwabena Menjivar on 07-20-2024 Erythrocyte distribution width (RBC) [Ratio] 13.1 % 11.6-14.6 [facility] Erythrocyte distribution wid th standard deviationOrdered By: Kwabena Menjivar on 07-20-2024 Erythrocyte distribution width (RBC) [Ratio] 43.0 fl 35.1-43.9 [facility] Glomerular filtration rate ( GFR) estimation/1.73 sq m using serum, plasma, or whole bOrdered By: Kwabena Menjivar on 07-20-2024 GFR/1.73 sq M.predicted among non-blacks MDRD (S/P/Bld) [Vol rate/Area] 69 mL/min/{1.73_m2} >60 [facility] Hematocrit Auto (Bld) [Volum e fraction]Ordered By: Kwabena Menjivar on 07-20-2024 Hematocrit (Bld) [Volume fraction] 40.4 % 40-54 [facility] Hemoglobin measurementOrdere d By: Kwabena Menjivar on 07-20-2024 Hemoglobin (Bld) [Mass/Vol] 13.3 g/dL 13.0-16.5 [facility] Immature granulocytes/100 WB C Auto (Bld)Ordered By: Kwabena Menjivar on 07-20-2024 Immature granulocytes/100 WBC (Bld) 0.200 % 0.0-0.9 [facility] LDL calc ser/plasOrdered By: Kwabena Menjivar on 07-20-2024 Cholesterol in LDL [Mass/Vol] 105 mg/dL [facility] Lipid Profileon 07-20-2024 CHOL:HDL 3.52 Normal [facility] Comment on above: Order Comment: Order Date: 10/27/23Order Info: [id number] - BMPOrder Date: 07/20/24Order Info: [id number] - CMPOrder Info: [id number] - LIPIDOrder Info: [id number] - TSH Performed By: #### L 500.4100 ####[facility] [address] [place], [address] Cholesterol [Mass/Vol] 185 mg/dL Normal <=200 [facility] Comment on above: Order Comment: Order Date: 10/27/23Order Info: [id number] - BMPOrder Date: 07/20/24Order Info: 07-1 - CMPOrder Info: [id number] - LIPIDOrder Info: 3 - TSH Result Comment: Chol esterol level, Desirable <200 mg/dLBorderline high cholesterol 200-239 mg/dLHigh cholesterol >=240 mg/dLRecommendations of the NCEP Adult Treatment Panel for thefollowing risk-cutoff thresholds for the [place] Americansout[facility] behavioral health servicesulation. Performed By: #### L 500.4100 ####[facility] [address] [place], [address] Cholesterol in HDL [Mass/Vol] 53 mg/dL Normal [facility] Comment on above: Order Comment: Order Date: 10/27/23Order Info: [id number] - BMPOrder Date: 07/20/24Order Info: 07 - CMPOrder Info: - LIPIDOrder Info: [id number] - TSH Result Comment: Jodi onal Cholesterol Education Program (NCEP) guidelines:<40 mg/dL: Low HDL-cholesterol (major risk factor for CHD)>= 60 mg/dL: High HDL-cholesterol (negative risk factor forCHD)HDL-cholesterol is affected by a number of factors, e.g.smoking, exercise, hormones, sex and age. Performed By: #### L 500.4100 ####[facility] [address] [place], [address] Cholesterol in LDL [Mass/Vol] 105 mg/dL Normal [facility] Comment on above: Order Comment: Order Date: 10/27/23Order Info: 06- - BMPOrder Date: 07/20/24Order Info: 07-1 - CMPOrder Info: [id number] - LIPIDOrder Info: [id number] - TSH Result Comment: Bord eegxui=464-694 mg/dL Higher Armt=358 mg/dL or greater Performed By: #### L 500.4100 ####[facility] [address] [place], [address] Cholesterol in VLDL [Mass/Vol] 27 mg/dL Normal 5-40 [facility] Comment on above: Order Comment: Order Date: 10/27/23Order Info: [id number] - BMPOrder Date: 07/20/24Order Info: [id number] - CMPOrder Info: [id number] - LIPIDOrder Info: [id number] - TSH Performed By: #### L 500.4100 ####[facility] [address] [place], [place], [address] Triglyceride [Mass/Vol] 136 mg/dL Normal [facility] Comment on above: Order Comment: Order Date: 10/27/23Order Info: [id number] - BMPOrder Date: 07/20/24Order Info: [id number] - CMPOrder Info: [id number] - LIPIDOrder Info: [id number] - TSH Result Comment: The drugs N-Acetylcysteine and Metamizole may falselydepress this assay.Normal range: <150 mg/dLBorderline High: 150-199 mg/dLHigh: 200-499 mg/dLVery High: >500 mg/dL Performed By: #### L 500.4100 ####[facility] [address] [place], [address] MCV (mean corpuscular volume ) determinationOrdered By: Kwabena Menjivar on 07-20-2024 MCV (RBC) [Entitic vol] 89.2 fL 80-94 [facility] Mean corpuscular hemoglobin (MCH) determinationOrdered By: Kwabena Menjivar on 07-20-2024 MCH (RBC) [Entitic mass] 29.4 pg 27.0-32.0 [facility] Monocyte percentageOrdered B y: Kwabena Menjivar on 07-20-2024 Monocytes/100 WBC (Bld) 8.4 % 0-10 [facility] Neutrophil percentageOrdered By: Kwabena Menjivar on 07-20-2024 Neutrophils/100 WBC (Bld) 52.1 % 47-70 [facility] No Panel InformationOrdered By: Kwabena Menjivar on 07-20-2024 30 U/L <38 [facility] Platelet countOrdered By: Kristine Menjivar on 07-20-2024 Platelets (Bld) [#/Vol] 242 10*3/uL 150-450 [facility] Potassium measurement (mass/ volume)Ordered By: Kwabena Menjivar on 07-20-2024 Potassium (Unsp spec) [Mass/Vol] 4.3 mmol/L 3.3-5.1 [facility] RBC Auto (Bld) [#/Vol]Ordere d By: Kwabena Menjivar on 07-20-2024 RBC (Bld) [#/Vol] 4.53 10*6/uL Low 4.6-6.2 [facility] Serum creatinine measurement (mass/volume)Ordered By: Kwabena Menjivar on 07-20-2024 Creatinine [Mass/Vol] 1.07 mg/dL 0.70-1.20 [facility] [facility] Serum globulin measurementOr dered By: Kwabena Menjivar on 07-20-2024 Globulin (S) [Mass/Vol] 2.6 g/dL 2.2-4.2 [facility] Serum glucose measurement (m ass/volume)Ordered By: Kwabena Menjivar on 07-20-2024 Glucose [Mass/Vol] 86 mg/dL 70-99 [facility] Serum or plasma alanine olmedo otransferase (ALT) measurementOrdered By: Kwabena Menjivar on 07-20-2024 ALT [Catalytic activity/Vol] 33 U/L <47 [facility] Serum or plasma albumin ratna urement (mass/volume)Ordered By: Kwabena Menjivar on 07-20-2024 Albumin [Mass/Vol] 4.3 g/dL 3.4-4.8 [facility] Serum or plasma albumin/glob ulin mass ratioOrdered By: Kwabena Menjivar on 07-20-2024 Albumin/Globulin [Mass ratio] 1.6 {ratio} 0.9-2.4 [facility] Serum or plasma alkaline garry sphatase measurementOrdered By: Kwabena Menjivar on 07-20-2024 ALP [Catalytic activity/Vol] 133 U/L High 40-129 [facility] Serum or plasma calcium ratna urement (mass/volume)Ordered By: Kwabena Menjivar on 07-20-2024 Calcium [Mass/Vol] 9.6 mg/dL 7.6-11.0 [facility] Serum or plasma cholesterol in HDL measurement (mass/volume)Ordered By: Kwabena Menjivar on 07-20-2024 Cholesterol in HDL [Mass/Vol] 53 mg/dL >40 [facility] Serum or plasma cholesterol measurement (mass/volume)Ordered By: Kwabena Menjivar on 07-20-2024 Cholesterol [Mass/Vol] 185 mg/dL <201 [facility] Serum or plasma urea nitroge n measurement (mass/volume)Ordered By: Kwabena Menjivar on 07-20-2024 Urea nitrogen [Mass/Vol] 14 mg/dL 4-19 [facility] Sodium levelOrdered By: Akhil Menjivar on 07-20-2024 Sodium [Moles/Vol] 142 mmol/L 133-145 [facility] TSH DL <= 0.005 mIU/L QnOrde red By: Kwabena Menjivar on 07-20-2024 TSH Qn 1.580 uIU/mL 0.300-4.200 [facility] Thyroid Stim Hormone (TSH)on 07-20-2024 TSH 1.580 uIU/mL Normal 0.300-4.200 [facility] Comment on above: Order Comment: Order Date: 10/27/23Order Info: [id number] - BMPOrder Date: 07/20/24Order Info: [id number] - CMPOrder Info: [id number] - LIPIDOrder Info: [id number] - TSH Performed By: #### L 100.0100, L501.9520, L400.0001, L500.4050 ####[facility] [address] [place], [address] Total proteinOrdered By: Blayne Menjivar on 07-20-2024 Protein [Mass/Vol] 6.9 g/dL 5.9-8.4 [facility] Urinalysis, Completeon 07-20 BACTERIA 0 SEEN Normal None Seen [facility] Comment on above: Order Comment: Order Date: 07/20/24Order Info: [id number] - UACCOLLECTOR TO SPECIFY Result Comment: UTO Performed By: #### L 100.0100, L501.9520, L400.0001, L500.4050 ####[facility] [address] [place], [address] EPI,SQUAMOUS 0 SEEN Normal 0-5 [facility] Comment on above: Order Comment: Order Date: 07/20/24Order Info: [id number] - UACCOLLECTOR TO SPECIFY Result Comment: UTO Performed By: #### L 100.0100, L501.9520, L400.0001, L500.4050 ####[facility] [address] [place], [address] Mucus Ql (Urine sed) 0 SEEN Normal [facility] Comment on above: Order Comment: Order Date: 07/20/24Order Info: [id number] - UACCOLLECTOR TO SPECIFY Result Comment: UTO Performed By: #### L 100.0100, L501.9520, L400.0001, L500.4050 ####[facility] [address] [place], [address] RBC 0 SEEN Normal 0-5 [facility] Comment on above: Order Comment: Order Date: 07/20/24Order Info: [id number] - UACCOLLECTOR TO SPECIFY Result Comment: UTO Performed By: #### L 100.0100, L501.9520, L400.0001, L500.4050 ####[facility] [address] [place], [address] WBC 0 SEEN Normal [address] [place] [address] Comment on above: Order Comment: Order Date: 07/20/24Order Info: [id number] - UACCOLLECTOR TO SPECIFY Result Comment: UTO Performed By: #### L 100.0100, L501.9520, L400.0001, L500.4050 ####[facility] [address] [place], [address] BILIRUBIN URINE Normal Negative [facility] Comment on above: Order Comment: Order Date: 07/20/24Order Info: [id number] - UACCOLLECTOR TO SPECIFY Result Comment: UTO Performed By: #### L 100.0100, L501.9520, L400.0001, L500.4050 ####[facility] [address] [place], [address] Clarity (U) Normal Clear [facility] Comment on above: Order Comment: Order Date: 07/20/24Order Info: [id number] - UACCOLLECTOR TO SPECIFY Result Comment: UTO Performed By: #### L 100.0100, L501.9520, L400.0001, L500.4050 ####[facility] [address] [place], [address] Color (U) Normal Yellow [facility] Comment on above: Order Comment: Order Date: 07/20/24Order Info: [id number] - UACCOLLECTOR TO SPECIFY Result Comment: UTO Performed By: #### L 100.0100, L501.9520, L400.0001, L500.4050 ####[facility] [address] [place], [address] GLUCOSE, UR Normal Normal [facility] Comment on above: Order Comment: Order Date: 07/20/24Order Info: [id number] - UACCOLLECTOR TO SPECIFY Result Comment: UTO Performed By: #### L 100.0100, L501.9520, L400.0001, L500.4050 ####[facility] [address] [place], [address] KETONE UR Normal Negative [facility] Comment on above: Order Comment: Order Date: 07/20/24Order Info: [id number] - UACCOLLECTOR TO SPECIFY Result Comment: UTO Performed By: #### L 100.0100, L501.9520, L400.0001, L500.4050 ####[facility] [address] [place], [address] LEUK ESTERASE Normal Negative [facility] Comment on above: Order Comment: Order Date: 07/20/24Order Info: [id number] - UACCOLLECTOR TO SPECIFY Result Comment: UTO Performed By: #### L 100.0100, L501.9520, L400.0001, L500.4050 ####[facility] [address] [place], [address] Nitrite Ql (U) Normal Negative [facility] Comment on above: Order Comment: Order Date: 07/20/24Order Info: [id number] - UACCOLLECTOR TO SPECIFY Result Comment: UTO Performed By: #### L 100.0100, L501.9520, L400.0001, L500.4050 ####[facility] [address] [place], [address] OCCULT BLOOD-UR Normal Negative [facility] Comment on above: Order Comment: Order Date: 07/20/24Order Info: [id number] - UACCOLLECTOR TO SPECIFY Result Comment: UTO Performed By: #### L 100.0100, L501.9520, L400.0001, L500.4050 ####[facility] [address] [place], [address] pH UR Normal 5.0 - 8.0 [facility] Comment on above: Order Comment: Order Date: 07/20/24Order Info: [id number] - UACCOLLECTOR TO SPECIFY Result Comment: UTO Performed By: #### L 100.0100, L501.9520, L400.0001, L500.4050 ####[facility] [address] [place], [address] PROT DIPSTX Normal Negative [facility] Comment on above: Order Comment: Order Date: 07/20/24Order Info: [id number] - UACCOLLECTOR TO SPECIFY Result Comment: UTO Performed By: #### L 100.0100, L501.9520, L400.0001, L500.4050 ####[facility] [address] [place], [address] SP.GR. DIPSTX Normal 1.002-1.030 [facility] Comment on above: Order Comment: Order Date: 07/20/24Order Info: [id number] - UACCOLLECTOR TO SPECIFY Result Comment: UTO Performed By: #### L 100.0100, L501.9520, L400.0001, L500.4050 ####[facility] [address] [place], [address] UR Preservative Normal [facility] Comment on above: Order Comment: Order Date: 07/20/24Order Info: [id number] - UACCOLLECTOR TO SPECIFY Result Comment: UTO Performed By: #### L 100.0100, L501.9520, L400.0001, L500.4050 ####[facility] [address] [place], [address] UROBILI Normal Normal [facility] Comment on above: Order Comment: Order Date: 07/20/24Order Info: [id number] - UACCOLLECTOR TO SPECIFY Result Comment: UTO Performed By: #### L 100.0100, L501.9520, L400.0001, L500.4050 ####[facility] [address] [place], [address] Vitamin D,25 Hydroxyon 07-20 Vitamin D 25-OH 45.1 ng/mL Normal 30-100 [facility] Comment on above: Order Comment: Order Date: 10/27/23Order Info: [id number] - BMPOrder Date: 07/20/24Order Info: [id number] - CMPOrder Info: [id number] - LIPIDOrder Info: [id number] - TSH Result Comment: Bethany min D StatusDeficiency: <20 ng/mL (50nmol/L)Insufficiency: 20-30 ng/mL (50-75 nmol/L)Sufficiency: 30-100 ng/mL (75-250 nmol/L)Toxicity: >100 ng/mL (>250 nmol/L) Performed By: #### L 506.1001 ####[facility] [address] [place], [address] White blood cell (WBC) count Ordered By: Kwabena Menjivar on 07-20-2024 WBC (Bld) [#/Vol] 8.3 10*3/uL 4.4-11.0 [facility] Wrist min 3 Viewson 07-21-19 25 Wrist min 3 Views Normal [facility] Absolute lymphocyte countOrd ered By: Keven Etienne on 07-11-2024 Lymphocytes Auto (Unsp spec) [#/Vol] 2.74 10*3/uL 0.83-4.51 [facility] Anion gap in Serum or Plasma Ordered By: Keven Etienne on 07-11-2024 Anion gap [Moles/Vol] 10 mmol/L 5-15 [facility] Automated lymphocyte count a s percentage of total leukocytesOrdered By: Keven Etienne on 07-11-2024 Lymphocytes/100 WBC Auto (Unsp spec) 40.8 % 19-41 [facility] BUN/creatinine ratioOrdered By: Keven Etienne on 07-11-2024 Urea nitrogen/Creatinine [Mass ratio] 22.0 mg/mg High 10-20 [facility] Basophil percentageOrdered B y: Keven Etienne on 07-11-2024 Basophils/100 WBC (Bld) 0.6 % 0-1 [facility] Carbon dioxide, total [Moles /volume] in Central venous bloodOrdered By: Keven Etienne on 07-11-2024 CO2 [Moles/Vol] 25.7 mmol/L 21.0-32.0 [facility] Chloride assayOrdered By: Edwar Etienne on 06-03-2025 Chloride [Moles/Vol] 104 mmol/L 98-108 [facility] Eosinophil percentageOrdered By: Keven Etienne on 07-11-2024 Eosinophils/100 WBC (Bld) 6.1 % High 0-5 [facility] Erythrocyte distribution wid th ratioOrdered By: Keven Etienne on 07-11-2024 Erythrocyte distribution width (RBC) [Ratio] 13.1 % 11.6-14.6 [facility] Erythrocyte distribution wid th standard deviationOrdered By: Keven Etienne on 07-11-2024 Erythrocyte distribution width (RBC) [Ratio] 42.7 fl 35.1-43.9 [facility] Glomerular filtration rate ( GFR) estimation/1.73 sq m using serum, plasma, or whole bOrdered By: Keven Etienne on 07-11-2024 GFR/1.73 sq M.predicted among non-blacks MDRD (S/P/Bld) [Vol rate/Area] 87 mL/min/{1.73_m2} >60 [facility] Hematocrit Auto (Bld) [Volum e fraction]Ordered By: Keven Etienne on 07-11-2024 Hematocrit (Bld) [Volume fraction] 35.5 % Low 40-54 [facility] Hemoglobin measurementOrdere d By: Keven Etienne on 07-11-2024 Hemoglobin (Bld) [Mass/Vol] 11.9 g/dL Low 13.0-16.5 [facility] Immature granulocytes/100 WB C Auto (Bld)Ordered By: Keven Etienne on 07-11-2024 Immature granulocytes/100 WBC (Bld) 0.300 % 0.0-0.9 [facility] MCV (mean corpuscular volume ) determinationOrdered By: Keven Etienne on 07-11-2024 MCV (RBC) [Entitic vol] 88.8 fL 80-94 [facility] Mean corpuscular hemoglobin (MCH) determinationOrdered By: Keven Etienne on 07-11-2024 MCH (RBC) [Entitic mass] 29.8 pg 27.0-32.0 [facility] Monocyte percentageOrdered B y: Keven Etienne on 07-11-2024 Monocytes/100 WBC (Bld) 8.9 % 0-10 [facility] Neutrophil percentageOrdered By: Edwarfrannycadenkeron Marcdollyclaudio on 07-11-2024 Neutrophils/100 WBC (Bld) 43.3 % Low 47-70 [facility] Platelet countOrdered By: Edwar remedios Monicodollyclaudio on 07-11-2024 Platelets (Bld) [#/Vol] 186 10*3/uL 150-450 [facility] Potassium measurement (mass/ volume)Ordered By: Keven Etienne on 07-11-2024 Potassium (Unsp spec) [Mass/Vol] 4.3 mmol/L 3.3-5.1 [facility] RBC Auto (Bld) [#/Vol]Ordere d By: Edwarfranyncadenkeron Etienne on 07-11-2024 RBC (Bld) [#/Vol] 4.00 10*6/uL Low 4.6-6.2 [facility] Serum creatinine measurement (mass/volume)Ordered By: Keven Etienne on 07-11-2024 Creatinine [Mass/Vol] 0.86 mg/dL 0.70-1.20 [facility] Serum glucose measurement (m ass/volume)Ordered By: Edwarfrannycadenkeron Etienne on 07-11-2024 Glucose [Mass/Vol] 91 mg/dL 70-99 [facility] Serum or plasma calcium ratna urement (mass/volume)Ordered By: Keven Etienne on 07-11-2024 Calcium [Mass/Vol] 8.8 mg/dL 7.6-11.0 [facility] Serum or plasma urea nitroge n measurement (mass/volume)Ordered By: Keven Etienne on 07-11-2024 Urea nitrogen [Mass/Vol] 19 mg/dL 4-19 [facility] Sodium levelOrdered By: Edwarfranny juan alberto Jaimie on 07-11-2024 Sodium [Moles/Vol] 139 mmol/L 133-145 [facility] White blood cell (WBC) count Ordered By: Keven Etienne on 07-11-2024 WBC (Bld) [#/Vol] 6.7 10*3/uL 4.4-11.0 [facility] Absolute lymphocyte countOrd ered By: Keven Etienne on 07-04-2024 Lymphocytes Auto (Unsp spec) [#/Vol] 2.53 10*3/uL 0.83-4.51 [facility] Anion gap in Serum or Plasma Ordered By: Keven Etienne on 07-04-2024 Anion gap [Moles/Vol] 10 mmol/L 5-15 [facility] Automated lymphocyte count a s percentage of total leukocytesOrdered By: Keven Etienne on 07-04-2024 Lymphocytes/100 WBC Auto (Unsp spec) 38.2 % 19-41 [facility] BUN/creatinine ratioOrdered By: Keven Etienne on 07-04-2024 Urea nitrogen/Creatinine [Mass ratio] 15.7 mg/mg 10-20 [facility] Basophil percentageOrdered B y: Keven Etienne on 07-04-2024 Basophils/100 WBC (Bld) 0.3 % 0-1 [facility] Carbon dioxide, total [Moles /volume] in Central venous bloodOrdered By: Keven Etienne on 07-04-2024 CO2 [Moles/Vol] 25.9 mmol/L 21.0-32.0 [facility] Chloride assayOrdered By: Edwar Etienne on 07-04-2024 Chloride [Moles/Vol] 105 mmol/L 98-108 [facility] Eosinophil percentageOrdered By: Keven Etienne on 07-04-2024 Eosinophils/100 WBC (Bld) 6.8 % High 0-5 [facility] Erythrocyte distribution wid th ratioOrdered By: remedios Etienne on 07-04-2024 Erythrocyte distribution width (RBC) [Ratio] 12.9 % 11.6-14.6 [facility] Erythrocyte distribution wid th standard deviationOrdered By: frannyclinton cornerskeron Etienne on 07-04-2024 Erythrocyte distribution width (RBC) [Ratio] 41.9 fl 35.1-43.9 [facility] Glomerular filtration rate ( GFR) estimation/1.73 sq m using serum, plasma, or whole bOrdered By: Keven Etienne on 07-04-2024 GFR/1.73 sq M.predicted among non-blacks MDRD (S/P/Bld) [Vol rate/Area] 86 mL/min/{1.73_m2} >60 [facility] Hematocrit Auto (Bld) [Volum e fraction]Ordered By: Ritacadenkeron Marcdollyclaudio on 07-04-2024 Hematocrit (Bld) [Volume fraction] 37.0 % Low 40-54 [facility] Hemoglobin measurementOrdere d By: Keven Monicodollyclaudio on 07-04-2024 Hemoglobin (Bld) [Mass/Vol] 12.2 g/dL Low 13.0-16.5 [facility] Immature granulocytes/100 WB C Auto (Bld)Ordered By: Keven Marcdollyclaudio on 07-04-2024 Immature granulocytes/100 WBC (Bld) 0.300 % 0.0-0.9 [facility] MCV (mean corpuscular volume ) determinationOrdered By: Keven Etienne on 07-04-2024 MCV (RBC) [Entitic vol] 88.5 fL 80-94 [facility] Mean corpuscular hemoglobin (MCH) determinationOrdered By: frannycadenkeron Marcdollyclaudio on 07-04-2024 MCH (RBC) [Entitic mass] 29.2 pg 27.0-32.0 [facility] Monocyte percentageOrdered B y: Edwarremedios Marcdollyclaudio on 07-04-2024 Monocytes/100 WBC (Bld) 9.2 % 0-10 [facility] Neutrophil percentageOrdered By: Keven Marcdollyclaudio on 07-04-2024 Neutrophils/100 WBC (Bld) 45.2 % Low 47-70 [facility] Platelet countOrdered By: Edwar remedios Monicodollyclaudio on 07-04-2024 Platelets (Bld) [#/Vol] 187 10*3/uL 150-450 [facility] Potassium measurement (mass/ volume)Ordered By: Edwarremedios Marcdollyclaudio on 07-04-2024 Potassium (Unsp spec) [Mass/Vol] 4.4 mmol/L 3.3-5.1 [facility] RBC Auto (Bld) [#/Vol]Ordere d By: Keven Etienne on 07-04-2024 RBC (Bld) [#/Vol] 4.18 10*6/uL Low 4.6-6.2 [facility] Serum creatinine measurement (mass/volume)Ordered By: Keven Etienne on 07-04-2024 Creatinine [Mass/Vol] 0.87 mg/dL 0.70-1.20 [facility] Serum glucose measurement (m ass/volume)Ordered By: Keven Etienne on 07-04-2024 Glucose [Mass/Vol] 95 mg/dL 70-99 [facility] Serum or plasma calcium ratna urement (mass/volume)Ordered By: Keven Etienne on 07-04-2024 Calcium [Mass/Vol] 9.0 mg/dL 7.6-11.0 [facility] Serum or plasma urea nitroge n measurement (mass/volume)Ordered By: Keven Etienne on 07-04-2024 Urea nitrogen [Mass/Vol] 14 mg/dL 4-19 [facility] Sodium levelOrdered By: Rita juan alberto Jaimie on 07-04-2024 Sodium [Moles/Vol] 141 mmol/L 133-145 [facility] White blood cell (WBC) count Ordered By: Keven Etienne on 07-04-2024 WBC (Bld) [#/Vol] 6.6 10*3/uL 4.4-11.0 [facility] Absolute lymphocyte countOrd ered By: Keven Etienne on 06-26-2024 Lymphocytes Auto (Unsp spec) [#/Vol] 2.99 10*3/uL 0.83-4.51 [facility] Anion gap in Serum or Plasma Ordered By: Keven Etienne on 06-26-2024 Anion gap [Moles/Vol] 8 mmol/L 5-15 [facility] Automated lymphocyte count a s percentage of total leukocytesOrdered By: Keven Etienne on 06-26-2024 Lymphocytes/100 WBC Auto (Unsp spec) 45.0 % High 19-41 [facility] BUN/creatinine ratioOrdered By: Keven Etienne on 06-26-2024 Urea nitrogen/Creatinine [Mass ratio] 18.5 mg/mg 10-20 [facility] Basophil percentageOrdered B y: Keven Etienne on 06-26-2024 Basophils/100 WBC (Bld) 0.6 % 0-1 [facility] Carbon dioxide, total [Moles /volume] in Central venous bloodOrdered By: remedios Etienne on 06-26-2024 CO2 [Moles/Vol] 25.7 mmol/L 21.0-32.0 [facility] Chloride assayOrdered By: Edwar frannyjuan alberto Etienne on 06-26-2024 Chloride [Moles/Vol] 105 mmol/L 98-108 [facility] Eosinophil percentageOrdered By: remedios Etienne on 06-26-2024 Eosinophils/100 WBC (Bld) 4.1 % 0-5 [facility] Erythrocyte distribution wid th ratioOrdered By: frannyclinton cornerskeron Etienne on 06-26-2024 Erythrocyte distribution width (RBC) [Ratio] 13.0 % 11.6-14.6 [facility] Erythrocyte distribution wid th standard deviationOrdered By: frannyclinton cornerskeron Etienne on 06-26-2024 Erythrocyte distribution width (RBC) [Ratio] 42.1 fl 35.1-43.9 [facility] Glomerular filtration rate ( GFR) estimation/1.73 sq m using serum, plasma, or whole bOrdered By: remedios Etienne on 06-26-2024 GFR/1.73 sq M.predicted among non-blacks MDRD (S/P/Bld) [Vol rate/Area] 85 mL/min/{1.73_m2} >60 [facility] Hematocrit Auto (Bld) [Volum e fraction]Ordered By: Keven Etienne on 06-26-2024 Hematocrit (Bld) [Volume fraction] 35.2 % Low 40-54 [facility] Hemoglobin measurementOrdere d By: Keven Etienne on 06-26-2024 Hemoglobin (Bld) [Mass/Vol] 11.7 g/dL Low 13.0-16.5 [facility] Immature granulocytes/100 WB C Auto (Bld)Ordered By: Keven Etienne on 06-26-2024 Immature granulocytes/100 WBC (Bld) 0.200 % 0.0-0.9 [facility] MCV (mean corpuscular volume ) determinationOrdered By: Keven Etienne on 06-26-2024 MCV (RBC) [Entitic vol] 88.4 fL 80-94 [facility] Mean corpuscular hemoglobin (MCH) determinationOrdered By: Edwarremedios Marcdollyclaudio on 06-26-2024 MCH (RBC) [Entitic mass] 29.4 pg 27.0-32.0 [facility] Monocyte percentageOrdered B y: Ritajuan alberto Etienne on 06-26-2024 Monocytes/100 WBC (Bld) 9.5 % 0-10 [facility] Neutrophil percentageOrdered By: Edwarremedios Marcdollyclaudio on 06-26-2024 Neutrophils/100 WBC (Bld) 40.6 % Low 47-70 [facility] Platelet countOrdered By: Edwar nitishkeron Etienne on 06-26-2024 Platelets (Bld) [#/Vol] 177 10*3/uL 150-450 [facility] Potassium measurement (mass/ volume)Ordered By: Keven Etienne on 06-26-2024 Potassium (Unsp spec) [Mass/Vol] 4.4 mmol/L 3.3-5.1 [facility] RBC Auto (Bld) [#/Vol]Ordere d By: Keven Etienne on 06-26-2024 RBC (Bld) [#/Vol] 3.98 10*6/uL Low 4.6-6.2 [facility] Serum creatinine measurement (mass/volume)Ordered By: Keven Etienne on 06-26-2024 Creatinine [Mass/Vol] 0.91 mg/dL 0.70-1.20 [facility] Serum glucose measurement (m ass/volume)Ordered By: Keven Etienne on 06-26-2024 Glucose [Mass/Vol] 90 mg/dL 70-99 [facility] Serum or plasma calcium ratna urement (mass/volume)Ordered By: Keven Etienne on 06-26-2024 Calcium [Mass/Vol] 8.9 mg/dL 7.6-11.0 [facility] Serum or plasma urea nitroge n measurement (mass/volume)Ordered By: Edwarfrannyjuan alberto Monicodollyclaudio on 06-26-2024 Urea nitrogen [Mass/Vol] 17 mg/dL 4-19 [facility] [facility] Sodium levelOrdered By: Rita avendano Monicodollyclaudio on 06-26-2024 Sodium [Moles/Vol] 139 mmol/L 133-145 [facility] White blood cell (WBC) count Ordered By: Edwarfrannyjuan alberto Monicomarisela on 06-26-2024 WBC (Bld) [#/Vol] 6.7 10*3/uL 4.4-11.0 [facility] Absolute lymphocyte countOrd ered By: Edwarfrannyjuan alberto Monicomarisela on 06-19-2024 Lymphocytes Auto (Unsp spec) [#/Vol] 2.85 10*3/uL 0.83-4.51 [facility] Anion gap in Serum or Plasma Ordered By: Ritacadenkeron Marcdollyclaudio on 06-19-2024 Anion gap [Moles/Vol] 10 mmol/L 5-15 [facility] Automated lymphocyte count a s percentage of total leukocytesOrdered By: Edwarfrannyjuan alberto Monicodollyclaudio on 06-19-2024 Lymphocytes/100 WBC Auto (Unsp spec) 41.2 % High 19-41 [facility] BUN/creatinine ratioOrdered By: Edwarfrannyjuan alberto Monicodollyclaudio on 06-19-2024 Urea nitrogen/Creatinine [Mass ratio] 24.2 mg/mg High 10-20 [facility] Basophil percentageOrdered B y: Keven Monicomarisela on 06-19-2024 Basophils/100 WBC (Bld) 0.6 % 0-1 [facility] Carbon dioxide, total [Moles /volume] in Central venous bloodOrdered By: Keven Monicodollyclaudio on 06-19-2024 CO2 [Moles/Vol] 25.5 mmol/L 21.0-32.0 [facility] Chloride assayOrdered By: Edwar frannyjuan alberto Marcdollyclaudio on 06-19-2024 Chloride [Moles/Vol] 105 mmol/L 98-108 [facility] Eosinophil percentageOrdered By: Keven Monicodollyclaudio on 06-19-2024 Eosinophils/100 WBC (Bld) 4.9 % 0-5 [facility] Erythrocyte distribution wid th ratioOrdered By: Keven Etienne on 06-19-2024 Erythrocyte distribution width (RBC) [Ratio] 13.0 % 11.6-14.6 [facility] Erythrocyte distribution wid th standard deviationOrdered By: Keven Etienne on 06-19-2024 Erythrocyte distribution width (RBC) [Ratio] 42.8 fl 35.1-43.9 [facility] Glomerular filtration rate ( GFR) estimation/1.73 sq m using serum, plasma, or whole bOrdered By: Keven Etienne on 06-19-2024 GFR/1.73 sq M.predicted among non-blacks MDRD (S/P/Bld) [Vol rate/Area] 86 mL/min/{1.73_m2} >60 [facility] Hematocrit Auto (Bld) [Volum e fraction]Ordered By: Keven Etienne on 06-19-2024 Hematocrit (Bld) [Volume fraction] 36.0 % Low 40-54 [facility] Hemoglobin measurementOrdere d By: Keven Etienne on 06-19-2024 Hemoglobin (Bld) [Mass/Vol] 11.8 g/dL Low 13.0-16.5 [facility] Immature granulocytes/100 WB C Auto (Bld)Ordered By: Keven Etinene on 06-19-2024 Immature granulocytes/100 WBC (Bld) 0.300 % 0.0-0.9 [facility] MCV (mean corpuscular volume ) determinationOrdered By: Keven Etienne on 06-19-2024 MCV (RBC) [Entitic vol] 90.0 fL 80-94 [facility] Mean corpuscular hemoglobin (MCH) determinationOrdered By: remedios Etienne on 06-19-2024 MCH (RBC) [Entitic mass] 29.5 pg 27.0-32.0 [facility] Monocyte percentageOrdered B y: Keven Etienne on 06-19-2024 Monocytes/100 WBC (Bld) 9.5 % 0-10 [facility] Neutrophil percentageOrdered By: Keven Etienne on 06-19-2024 Neutrophils/100 WBC (Bld) 43.5 % Low 47-70 [facility] Platelet countOrdered By: Edwar Etienne on 06-19-2024 Platelets (Bld) [#/Vol] 185 10*3/uL 150-450 [facility] Potassium measurement (mass/ volume)Ordered By: Keven Monicomarisela on 06-19-2024 Potassium (Unsp spec) [Mass/Vol] 4.4 mmol/L 3.3-5.1 [facility] RBC Auto (Bld) [#/Vol]Ordere d By: Keven Etienne on 06-19-2024 RBC (Bld) [#/Vol] 4.00 10*6/uL Low 4.6-6.2 [facility] Serum creatinine measurement (mass/volume)Ordered By: Keven Etienne on 06-19-2024 Creatinine [Mass/Vol] 0.89 mg/dL 0.70-1.20 [facility] Serum glucose measurement (m ass/volume)Ordered By: Keven Monicomarisela on 06-19-2024 Glucose [Mass/Vol] 91 mg/dL 70-99 [facility] Serum or plasma calcium ratna urement (mass/volume)Ordered By: Keven Etienne on 06-19-2024 Calcium [Mass/Vol] 9.0 mg/dL 7.6-11.0 [facility] Serum or plasma urea nitroge n measurement (mass/volume)Ordered By: Keven Monicomarisela on 06-19-2024 Urea nitrogen [Mass/Vol] 22 mg/dL High 4-19 [facility] Sodium levelOrdered By: Rita Etienne on 06-19-2024 Sodium [Moles/Vol] 141 mmol/L 133-145 [facility] White blood cell (WBC) count Ordered By: Keven Monicomarisela on 06-19-2024 WBC (Bld) [#/Vol] 6.9 10*3/uL 4.4-11.0 [facility] Absolute lymphocyte countOrd ered By: Keven Monicomarisela on 06-12-2024 Lymphocytes Auto (Unsp spec) [#/Vol] 2.89 10*3/uL 0.83-4.51 [facility] Anion gap in Serum or Plasma Ordered By: Keven Etienne on 06-12-2024 Anion gap [Moles/Vol] 10 mmol/L 5-15 [facility] Automated lymphocyte count a s percentage of total leukocytesOrdered By: Keven Etienne on 06-12-2024 Lymphocytes/100 WBC Auto (Unsp spec) 41.1 % High 19-41 [facility] BUN/creatinine ratioOrdered By: frannyclinton cornerskeron Etienne on 06-12-2024 Urea nitrogen/Creatinine [Mass ratio] 20.6 mg/mg High 10-20 [facility] Basophil percentageOrdered B y: Keven Etienne on 06-12-2024 Basophils/100 WBC (Bld) 0.3 % 0-1 [facility] Carbon dioxide, total [Moles /volume] in Central venous bloodOrdered By: Keven Etienne on 06-12-2024 CO2 [Moles/Vol] 24.3 mmol/L 21.0-32.0 [facility] Chloride assayOrdered By: remedios Etienne on 06-12-2024 Chloride [Moles/Vol] 105 mmol/L 98-108 [facility] Eosinophil percentageOrdered By: frannyclinton cornerskeron Etienne on 06-12-2024 Eosinophils/100 WBC (Bld) 3.6 % 0-5 [facility] Erythrocyte distribution wid th ratioOrdered By: Keevn Etienne on 06-12-2024 Erythrocyte distribution width (RBC) [Ratio] 12.9 % 11.6-14.6 [facility] Erythrocyte distribution wid th standard deviationOrdered By: [facility] on 06-12-2024 Erythrocyte distribution width (RBC) [Ratio] 41.6 fl 35.1-43.9 [facility] Glomerular filtration rate ( GFR) estimation/1.73 sq m using serum, plasma, or whole bOrdered By: Keven Etienne on 06-12-2024 GFR/1.73 sq M.predicted among non-blacks MDRD (S/P/Bld) [Vol rate/Area] 87 mL/min/{1.73_m2} >60 [facility] Hematocrit Auto (Bld) [Volum e fraction]Ordered By: Keven Etienne on 06-12-2024 Hematocrit (Bld) [Volume fraction] 34.2 % Low 40-54 [facility] Hemoglobin measurementOrdere d By: Keven Etienne on 06-12-2024 Hemoglobin (Bld) [Mass/Vol] 11.4 g/dL Low 13.0-16.5 [facility] Immature granulocytes/100 WB C Auto (Bld)Ordered By: remedios Etienne on 06-12-2024 Immature granulocytes/100 WBC (Bld) 0.100 % 0.0-0.9 [facility] MCV (mean corpuscular volume ) determinationOrdered By: Keven Etienne on 06-12-2024 MCV (RBC) [Entitic vol] 88.4 fL 80-94 [facility] Mean corpuscular hemoglobin (MCH) determinationOrdered By: remedios Etienne on 06-12-2024 MCH (RBC) [Entitic mass] 29.5 pg 27.0-32.0 [facility] Monocyte percentageOrdered B y: frannyclinton cornerskeron Etienne on 06-12-2024 Monocytes/100 WBC (Bld) 9.4 % 0-10 [facility] Neutrophil percentageOrdered By: frannyclinton cornerskeron Etienne on 06-12-2024 Neutrophils/100 WBC (Bld) 45.5 % Low 47-70 [facility] Platelet countOrdered By: Edwar frannyjuan alberto Etienne on 06-12-2024 Platelets (Bld) [#/Vol] 188 10*3/uL 150-450 [facility] Potassium measurement (mass/ volume)Ordered By: remedios Etienne on 06-12-2024 Potassium (Unsp spec) [Mass/Vol] 4.2 mmol/L 3.3-5.1 [facility] RBC Auto (Bld) [#/Vol]Ordere d By: Keven Etienne on 06-12-2024 RBC (Bld) [#/Vol] 3.87 10*6/uL Low 4.6-6.2 [facility] Serum creatinine measurement (mass/volume)Ordered By: Keven Etienne on 06-12-2024 Creatinine [Mass/Vol] 0.85 mg/dL 0.70-1.20 [facility] Serum glucose measurement (m ass/volume)Ordered By: Keven Etienne on 06-12-2024 Glucose [Mass/Vol] 94 mg/dL 70-99 [facility] Serum or plasma calcium ratna urement (mass/volume)Ordered By: Keven Etienne on 06-12-2024 Calcium [Mass/Vol] 8.9 mg/dL 7.6-11.0 [facility] Serum or plasma urea nitroge n measurement (mass/volume)Ordered By: Keven Etienne on 06-12-2024 Urea nitrogen [Mass/Vol] 18 mg/dL 4-19 [facility] Sodium levelOrdered By: Rita Etienne on 06-12-2024 Sodium [Moles/Vol] 140 mmol/L 133-145 [facility] White blood cell (WBC) count Ordered By: Keven Etienne on 06-12-2024 WBC (Bld) [#/Vol] 7.0 10*3/uL 4.4-11.0 [facility] Absolute lymphocyte countOrd ered By: Keven Etienne on 06-05-2024 Lymphocytes Auto (Unsp spec) [#/Vol] 2.57 10*3/uL 0.83-4.51 [facility] Anion gap in Serum or Plasma Ordered By: Keven Etienne on 06-05-2024 Anion gap [Moles/Vol] 10 mmol/L 5-15 [facility] Automated lymphocyte count a s percentage of total leukocytesOrdered By: Keven Etienne on 06-05-2024 Lymphocytes/100 WBC Auto (Unsp spec) 40.3 % - [facility] BUN/creatinine ratioOrdered By: Keven Etienne on 06-05-2024 Urea nitrogen/Creatinine [Mass ratio] 17.2 mg/mg 10-20 [facility] Basophil percentageOrdered B y: Keven Etienne on 06-05-2024 Basophils/100 WBC (Bld) 0.5 % 0-1 [facility] Carbon dioxide, total [Moles /volume] in Central venous bloodOrdered By: Keven Etienne on 06-05-2024 CO2 [Moles/Vol] 25.7 mmol/L 21.0-32.0 [facility] Chloride assayOrdered By: Edwar Etienne on 06-05-2024 Chloride [Moles/Vol] 106 mmol/L 98-108 [facility] Eosinophil percentageOrdered By: Keven Etienne on 06-05-2024 Eosinophils/100 WBC (Bld) 5.2 % High 0-5 [facility] Erythrocyte distribution wid th ratioOrdered By: Keven Etienne on 06-05-2024 Erythrocyte distribution width (RBC) [Ratio] 12.5 % 11.6-14.6 [facility] Erythrocyte distribution wid th standard deviationOrdered By: Keven Etienne on 06-05-2024 Erythrocyte distribution width (RBC) [Ratio] 40.6 fl 35.1-43.9 [facility] Glomerular filtration rate ( GFR) estimation/1.73 sq m using serum, plasma, or whole bOrdered By: Keven Etienne on 06-05-2024 GFR/1.73 sq M.predicted among non-blacks MDRD (S/P/Bld) [Vol rate/Area] 87 mL/min/{1.73_m2} >60 [facility] Hematocrit Auto (Bld) [Volum e fraction]Ordered By: Keven Etienne 06-05-2024 Hematocrit (Bld) [Volume fraction] 35.3 % Low 40-54 [facility] Hemoglobin measurementOrdere d By: Keven Etienne 06-05-2024 Hemoglobin (Bld) [Mass/Vol] 11.9 g/dL Low 13.0-16.5 [facility] Immature granulocytes/100 WB C Auto (Bld)Ordered By: Keven Etienne on 06-05-2024 Immature granulocytes/100 WBC (Bld) 0.300 % 0.0-0.9 [facility] MCV (mean corpuscular volume ) determinationOrdered By: Keven Etienne on 06-05-2024 MCV (RBC) [Entitic vol] 88.7 fL 80-94 [facility] Mean corpuscular hemoglobin (MCH) determinationOrdered By: Edwarfrannycadenkeron Marcdollyclaudio on 06-05-2024 MCH (RBC) [Entitic mass] 29.9 pg 27.0-32.0 [facility] Monocyte percentageOrdered B y: Bisikeron Marcdollyclaudio on 06-05-2024 Monocytes/100 WBC (Bld) 10.8 % High 0-10 [facility] Neutrophil percentageOrdered By: Bisikeron Marcdollyclaudio on 06-05-2024 Neutrophils/100 WBC (Bld) 42.9 % Low 47-70 [facility] Platelet countOrdered By: Edwar nitishkeron Marcdollyclaudio on 06-05-2024 Platelets (Bld) [#/Vol] 163 10*3/uL 150-450 [facility] Potassium measurement (mass/ volume)Ordered By: Keven Etienne on 06-05-2024 Potassium (Unsp spec) [Mass/Vol] 4.2 mmol/L 3.3-5.1 [facility] RBC Auto (Bld) [#/Vol]Ordere d By: Edwarfrannyjuan alberto Monicomarisela on 06-05-2024 RBC (Bld) [#/Vol] 3.98 10*6/uL Low 4.6-6.2 [facility] Serum creatinine measurement (mass/volume)Ordered By: Keven Etienne on 06-05-2024 Creatinine [Mass/Vol] 0.86 mg/dL 0.70-1.20 [facility] Serum glucose measurement (m ass/volume)Ordered By: Keven Etienne on 06-05-2024 Glucose [Mass/Vol] 95 mg/dL 70-99 [facility] Serum or plasma calcium ratna urement (mass/volume)Ordered By: Keven Etienne on 06-05-2024 Calcium [Mass/Vol] 9.0 mg/dL 7.6-11.0 [facility] Serum or plasma urea nitroge n measurement (mass/volume)Ordered By: Keven Etienne on 06-05-2024 Urea nitrogen [Mass/Vol] 15 mg/dL 4-19 [facility] Sodium levelOrdered By: Rita juan alberto Jaimie on 06-05-2024 Sodium [Moles/Vol] 142 mmol/L 133-145 [facility] White blood cell (WBC) count Ordered By: Keven Etienne on 06-05-2024 WBC (Bld) [#/Vol] 6.4 10*3/uL 4.4-11.0 [facility] Cerv Spine 2 or 3 Viewson Cerv Spine 2 or 3 Views Normal [facility] Orthopedic Visit Reporton Orthopedic Visit Report Normal [facility] Absolute lymphocyte countOrd ered By: Keven Etienne on 05-29-2024 Lymphocytes Auto (Unsp spec) [#/Vol] 2.20 10*3/uL 0.83-4.51 [facility] Absolute neutrophil countOrd ered By: Keven Etienne on 05-29-2024 Neutrophils (Bld) [#/Vol] 3.3 10*3/uL 2.0-7.7 [facility] Anion gap in Serum or Plasma Ordered By: Keven Etienne on 05-29-2024 Anion gap [Moles/Vol] 10 mmol/L 5-15 [facility] Automated lymphocyte count a s percentage of total leukocytesOrdered By: Keven Etienne on 05-29-2024 Lymphocytes/100 WBC Auto (Unsp spec) 34.3 % 19-41 [facility] BUN/creatinine ratioOrdered By: Keven Etienne on 05-29-2024 Urea nitrogen/Creatinine [Mass ratio] 19.7 mg/mg 10-20 [facility] Basophil percentageOrdered B y: Keven Etienne on 05-29-2024 Basophils/100 WBC (Bld) 0.6 % 0-1 [facility] Carbon dioxide, total [Moles /volume] in Central venous bloodOrdered By: Keven Etienne on 05-29-2024 CO2 [Moles/Vol] 25.2 mmol/L 21.0-32.0 [facility] Chloride assayOrdered By: Edwar Etienne on 05-29-2024 Chloride [Moles/Vol] 108 mmol/L 98-108 [facility] Eosinophil percentageOrdered By: Keven Etienne on 05-29-2024 Eosinophils/100 WBC (Bld) 4.2 % 0-5 [facility] Erythrocyte distribution wid th (RBC) [Ratio]Ordered By: Keven Etienne on 05-29-2024 Erythrocyte distribution width (RBC) [Entitic vol] 41.1 fL 35.1-43.9 [facility] Erythrocyte distribution wid th ratioOrdered By: Keven Etienne on 05-29-2024 Erythrocyte distribution width (RBC) [Ratio] 12.6 % 11.6-14.6 [facility] Erythrocyte distribution wid th standard deviationOrdered By: Keven Etienne on 05-29-2024 Erythrocyte distribution width (RBC) [Ratio] 41.1 fl 35.1-43.9 [facility] GFR/1.73 sq M.predicted darrick g non-blacks MDRD (S/P/Bld) [Vol rate/Area]Ordered By: Keven Etienne on 05-29-2024 Estimated GFR (MDRD) Non-Af Amer 78 >60 [facility] Comment on above: mL/min/1.73m2 CKD-EP I Creatinine Equation (2020) Glomerular filtration rate ( GFR) estimation/1.73 sq m using serum, plasma, or whole bOrdered By: Keven Etienne on 05-29-2024 GFR/1.73 sq M.predicted among non-blacks MDRD (S/P/Bld) [Vol rate/Area] 78 mL/min/{1.73_m2} >60 [facility] Hematocrit Auto (Bld) [Volum e fraction]Ordered By: Keven Etienne on 05-29-2024 Hematocrit (Bld) [Volume fraction] 37.4 % Low 40-54 [facility] Hemoglobin measurementOrdere d By: Keven Etienne on 05-29-2024 Hemoglobin (Bld) [Mass/Vol] 12.3 g/dL Low 13.0-16.5 [facility] Immature granulocytes/100 WB C Auto (Bld)Ordered By: Keven Etienne on 05-29-2024 Immature granulocytes/100 WBC (Bld) 0.500 % 0.0-0.9 [facility] Comment on above: IG% - Immature Granu locytes (promyelocytes, myelocytes and metamyelocytes) > 1% indicates that a LEFT SHIFT is Present. Lymphocytes Auto (Unsp spec) [#/Vol]Ordered By: frannyclinton cornerskeron Marcclaudio on 05-29-2024 Lymphocytes (Bld) [#/Vol] 2.20 10*3/uL 0.83-4.51 [facility] Lymphocytes/100 WBC Auto (Un sp spec)Ordered By: frannyclinton cornerskeron Etienne on 05-29-2024 Lymphocytes/100 WBC (Bld) 34.3 % 19-41 [facility] MCV (mean corpuscular volume ) determinationOrdered By: remedios Etienne on 05-29-2024 MCV (RBC) [Entitic vol] 89.3 fL 80-94 [facility] Mean corpuscular hemoglobin (MCH) determinationOrdered By: frannyclinton cornerskeron Etienne on 05-29-2024 MCH (RBC) [Entitic mass] 29.4 pg 27.0-32.0 [facility] Mean corpuscular hemoglobin concentration (MCHC) determinationOrdered By: [facility] on 05-29-2024 MCHC (RBC) [Mass/Vol] 32.9 g/dL 32-36 [facility] Mean platelet volume determi nationOrdered By: frannyclinton cornerskeron Etienne on 05-29-2024 Platelet mean volume (Bld) [Entitic vol] 9.2 fL 6.2-12.0 [facility] Monocyte percentageOrdered B y: [facility] on 05-29-2024 Monocytes/100 WBC (Bld) 8.4 % 0-10 [facility] Neutrophil percentageOrdered By: [facility] on 05-29-2024 Neutrophils/100 WBC (Bld) 52.0 % 47-70 [facility] Nucleated red blood cell per centageOrdered By: frannyclinton cornerskeron Etienne on 05-29-2024 Nucleated RBC/100 WBC (Bld) [Ratio] 0 % 0-5 [facility] Platelet countOrdered By: Edwar remedios Monicodollyclaudio on 05-29-2024 Platelets (Bld) [#/Vol] 185 10*3/uL 150-450 [facility] Potassium (Unsp spec) [Mass/ Vol]Ordered By: Keven Marcdollyclaudio on 05-29-2024 Potassium [Moles/Vol] 4.3 mmol/L 3.3-5.1 [facility] Potassium measurement (mass/ volume)Ordered By: Keven Etienne on 05-29-2024 Potassium (Unsp spec) [Mass/Vol] 4.3 mmol/L 3.3-5.1 [facility] RBC Auto (Bld) [#/Vol]Ordere d By: Bisikeron Etienne on 05-29-2024 RBC (Bld) [#/Vol] 4.19 10*6/uL Low 4.6-6.2 [facility] Serum creatinine measurement (mass/volume)Ordered By: Keven Etienne on 05-29-2024 Creatinine [Mass/Vol] 0.97 mg/dL 0.70-1.20 [facility] Serum glucose measurement (m ass/volume)Ordered By: Keven Etienne on 05-29-2024 Glucose [Mass/Vol] 95 mg/dL 70-99 [facility] Serum or plasma calcium ratna urement (mass/volume)Ordered By: Keven Marcdollyclaudio on 05-29-2024 Calcium [Mass/Vol] 8.8 mg/dL 7.6-11.0 [facility] Serum or plasma urea nitroge n measurement (mass/volume)Ordered By: Keven Etienne on 05-29-2024 Urea nitrogen [Mass/Vol] 19 mg/dL 4-19 [facility] Sodium levelOrdered By: Rita avendano Monicodollyclaudio on 05-29-2024 Sodium [Moles/Vol] 143 mmol/L 133-145 [facility] White blood cell (WBC) count Ordered By: Keven Marcdollyclaudio on 05-29-2024 WBC (Bld) [#/Vol] 6.4 10*3/uL 4.4-11.0 [facility] Abdomen Single Viewon 2024 Abdomen Single View Normal [facility] Gastroenterology Visit Repor ton 05-25-2024 Gastroenterology Visit Report Normal [facility] Absolute lymphocyte countOrd ered By: Keven Etienne on 05-22-2024 Lymphocytes Auto (Unsp spec) [#/Vol] 2.46 10*3/uL 0.83-4.51 [facility] Absolute neutrophil countOrd ered By: Keven Etienne on 05-22-2024 Neutrophils (Bld) [#/Vol] 4.3 10*3/uL 2.0-7.7 [facility] Anion gap in Serum or Plasma Ordered By: Keven Etienne on 05-22-2024 Anion gap [Moles/Vol] 10 mmol/L 5-15 [facility] Automated lymphocyte count a s percentage of total leukocytesOrdered By: Keven Etienne on 05-22-2024 Lymphocytes/100 WBC Auto (Unsp spec) 32.5 % 19-41 [facility] BUN/creatinine ratioOrdered By: Keven Etienne on 05-22-2024 Urea nitrogen/Creatinine [Mass ratio] 24.1 mg/mg High 10-20 [facility] Basophil percentageOrdered B y: Keven Etienne on 05-22-2024 Basophils/100 WBC (Bld) 0.5 % 0-1 [facility] Bilirubin, totalOrdered By: Keven Etienne on 05-22-2024 Bilirubin [Mass/Vol] 0.44 mg/dL 0.00-1.30 [facility] Carbon dioxide, total [Moles /volume] in Central venous bloodOrdered By: Keven Etienne on 05-22-2024 CO2 [Moles/Vol] 23.9 mmol/L 21.0-32.0 [facility] Chloride assayOrdered By: Edwar Etienne on 05-22-2024 Chloride [Moles/Vol] 104 mmol/L 98-108 [facility] Eosinophil percentageOrdered By: Keven Etienne on 05-22-2024 Eosinophils/100 WBC (Bld) 2.5 % 0-5 [facility] Erythrocyte distribution wid th (RBC) [Ratio]Ordered By: Keven Etienne on 05-22-2024 Erythrocyte distribution width (RBC) [Entitic vol] 41.4 fL 35.1-43.9 [facility] Erythrocyte distribution wid th ratioOrdered By: Keven Etienne on 05-22-2024 Erythrocyte distribution width (RBC) [Ratio] 12.7 % 11.6-14.6 [facility] Erythrocyte distribution wid th standard deviationOrdered By: frannyclinton cornerskeron Etienne on 05-22-2024 Erythrocyte distribution width (RBC) [Ratio] 41.4 fl 35.1-43.9 [facility] GFR/1.73 sq M.predicted darrick g non-blacks MDRD (S/P/Bld) [Vol rate/Area]Ordered By: Keven Etienne on 05-22-2024 Estimated GFR (MDRD) Non-Af Amer 73 >60 [facility] Comment on above: mL/min/1.73m2 CKD-EP I Creatinine Equation (2020) Glomerular filtration rate ( GFR) estimation/1.73 sq m using serum, plasma, or whole bOrdered By: Keven Etienne on 05-22-2024 GFR/1.73 sq M.predicted among non-blacks MDRD (S/P/Bld) [Vol rate/Area] 73 mL/min/{1.73_m2} >60 [facility] Hematocrit Auto (Bld) [Volum e fraction]Ordered By: Keven Etienne 05-22-2024 Hematocrit (Bld) [Volume fraction] 36.8 % Low 40-54 [facility] Hemoglobin measurementOrdere d By: Keven Etienne 05-22-2024 Hemoglobin (Bld) [Mass/Vol] 12.1 g/dL Low 13.0-16.5 [facility] Immature granulocytes/100 WB C Auto (Bld)Ordered By: Keven Etienne on 05-22-2024 Immature granulocytes/100 WBC (Bld) 0.500 % 0.0-0.9 [facility] Comment on above: IG% - Immature Granu locytes (promyelocytes, myelocytes and metamyelocytes) > 1% indicates that a LEFT SHIFT is Present. Laboratory - Chemistry and C hemistry - challengeOrdered By: Keven Etienne on 05-22-2024 AST [Catalytic activity/Vol] 33 U/L <38 [facility] Comment on above: Hemolysis present, R esults could be affected. Lymphocytes Auto (Unsp spec) [#/Vol]Ordered By: Keven Etienne on 05-22-2024 Lymphocytes (Bld) [#/Vol] 2.46 10*3/uL 0.83-4.51 [facility] Lymphocytes/100 WBC Auto (Un sp spec)Ordered By: Keven Etienne on 05-22-2024 Lymphocytes/100 WBC (Bld) 32.5 % 19-41 [facility] MCV (mean corpuscular volume ) determinationOrdered By: Keven Etienne on 05-22-2024 MCV (RBC) [Entitic vol] 89.1 fL 80-94 [facility] Mean corpuscular hemoglobin (MCH) determinationOrdered By: Keven Etienne on 05-22-2024 MCH (RBC) [Entitic mass] 29.3 pg 27.0-32.0 [facility] Mean corpuscular hemoglobin concentration (MCHC) determinationOrdered By: Keven Etienne on 05-22-2024 MCHC (RBC) [Mass/Vol] 32.9 g/dL 32-36 [facility] Mean platelet volume determi nationOrdered By: Keven Etienne on 05-22-2024 Platelet mean volume (Bld) [Entitic vol] 8.7 fL 6.2-12.0 [facility] Monocyte percentageOrdered B y: Keven Etienne on 05-22-2024 Monocytes/100 WBC (Bld) 7.4 % 0-10 [facility] Neutrophil percentageOrdered By: remedios Etienne on 05-22-2024 Neutrophils/100 WBC (Bld) 56.6 % 47-70 [facility] No Panel InformationOrdered By: remedios Etienne on 05-22-2024 33 U/L <38 [facility] Nucleated red blood cell per centageOrdered By: Keven Etienne on 05-22-2024 Nucleated RBC/100 WBC (Bld) [Ratio] 0 % 0-5 [facility] Platelet countOrdered By: Edwar Etienne on 05-22-2024 Platelets (Bld) [#/Vol] 217 10*3/uL 150-450 [facility] Potassium (Unsp spec) [Mass/ Vol]Ordered By: Keven Etienne on 05-22-2024 Potassium [Moles/Vol] 4.3 mmol/L 3.3-5.1 [facility] Comment on above: Hemolysis present, R esults could be affected. Potassium measurement (mass/ volume)Ordered By: Keven Etienne on 05-22-2024 Potassium (Unsp spec) [Mass/Vol] 4.3 mmol/L 3.3-5.1 [facility] RBC Auto (Bld) [#/Vol]Ordere d By: Keven Etienne on 05-22-2024 RBC (Bld) [#/Vol] 4.13 10*6/uL Low 4.6-6.2 [facility] Serum creatinine measurement (mass/volume)Ordered By: Keven Etienne on 05-22-2024 Creatinine [Mass/Vol] 1.03 mg/dL 0.70-1.20 [facility] Serum globulin measurementOr dered By: Keven Etienne on 05-22-2024 Globulin (S) [Mass/Vol] 2.4 g/dL 2.2-4.2 [facility] Serum glucose measurement (m ass/volume)Ordered By: Keven Etienne on 05-22-2024 Glucose [Mass/Vol] 91 mg/dL 70-99 [facility] Serum or plasma alanine olmedo otransferase (ALT) measurementOrdered By: Keven Etienne on 05-22-2024 ALT [Catalytic activity/Vol] 44 U/L <47 [facility] Serum or plasma albumin ratna urement (mass/volume)Ordered By: Keven Etienne on 05-22-2024 Albumin [Mass/Vol] 3.3 g/dL Low 3.4-4.8 [facility] Serum or plasma albumin/glob ulin mass ratioOrdered By: Bisikeron Etienne on 05-22-2024 Albumin/Globulin [Mass ratio] 1.4 {ratio} 0.9-2.4 [facility] Serum or plasma alkaline garry sphatase measurementOrdered By: Edwarfrannycadenkeron Marcdollyclaudio on 05-22-2024 ALP [Catalytic activity/Vol] 139 U/L High 40-129 [facility] Serum or plasma calcium ratna urement (mass/volume)Ordered By: Keven Etienne on 05-22-2024 Calcium [Mass/Vol] 8.8 mg/dL 7.6-11.0 [facility] Serum or plasma urea nitroge n measurement (mass/volume)Ordered By: Keven Etienne on 05-22-2024 Urea nitrogen [Mass/Vol] 25 mg/dL High 4-19 [facility] Sodium levelOrdered By: Rita juan alberto Monicodollyclaudio on 05-22-2024 Sodium [Moles/Vol] 139 mmol/L 133-145 [facility] Total proteinOrdered By: Roby lo Monicodollyclaudio on 05-22-2024 Protein [Mass/Vol] 5.8 g/dL Low 5.9-8.4 [facility] White blood cell (WBC) count Ordered By: Ritacadenkeron Etienne on 05-22-2024 WBC (Bld) [#/Vol] 7.6 10*3/uL 4.4-11.0 [facility] Urine Cultureon 05-12-2024 URC Normal [facility] Comment on above: Performed By: #### L 400.0001, M100.2200 ####[facility] [address] [place], [address] Anion gap in Serum or Plasma Ordered By: Corazon Wright on 05-11-2024 Anion gap [Moles/Vol] 10 mmol/L 5-15 [facility] BUN/creatinine ratioOrdered By: Corazon Wright on 05-11-2024 Urea nitrogen/Creatinine [Mass ratio] 35.5 mg/mg High 10-20 [facility] Basic Metabolic Profile (BMP )on 05-11-2024 BUN/CRE 35.5 RATIO High 10-20 [facility] Comment on above: Performed By: #### L 500.2500, L100.0500 ####[facility] [address] [place], [address] Calcium [Mass/Vol] 8.6 mg/dL Normal 7.6-11.0 [facility] Comment on above: Performed By: #### L 500.2500, L100.0500 ####[facility] [address] [place], [address] Chloride [Moles/Vol] 104 mmol/L Normal 98-108 [facility] Comment on above: Performed By: #### L 500.2500, L100.0500 ####[facility] [address] [place], [address] CO2 [Moles/Vol] 23.4 mmol/L Normal 21.0-32.0 [facility] Comment on above: Performed By: #### L 500.2500, L100.0500 ####[facility] [address] [place], [address] Creatinine [Mass/Vol] 0.96 mg/dL Normal 0.70-1.20 [facility] Comment on above: Performed By: #### L 500.2500, L100.0500 ####[facility] [address] [place], [address] ECRCL 57.40 ml/min Normal 50-250 [facility] Comment on above: Performed By: #### L 500.2500, L100.0500 ####[facility] [address] [place], [address] GAP 10 Normal 5-15 [facility] Comment on above: Performed By: #### L 500.2500, L100.0500 ####[facility] [address] [place], [address] GFR/1.73 sq M.predicted among non-blacks MDRD (S/P/Bld) [Vol rate/Area] 79 mL/min/{1.73_m2} Normal >60 [facility] Comment on above: Result Comment: mL/m in/1.73m2 CKD-EPI Creatinine Equation (2020) Performed By: #### L 500.2500, L100.0500 ####[facility] [address] [place], [address] Glucose [Mass/Vol] 116 mg/dL High 70-99 [facility] Comment on above: Performed By: #### L 500.2500, L100.0500 ####[facility] [address] [place], [address] Potassium [Moles/Vol] 4.5 mmol/L Normal 3.3-5.1 [facility] Comment on above: Performed By: #### L 500.2500, L100.0500 ####[facility] [address] [place], [address] Sodium [Moles/Vol] 137 mmol/L Normal 133-145 [facility] Comment on above: Performed By: #### L 500.2500, L100.0500 ####[facility] [address] [place], [address] Urea nitrogen [Mass/Vol] 34 mg/dL High 4-19 [facility] Comment on above: Performed By: #### L 500.2500, L100.0500 ####[facility] [address] [place], [address] CBC-Complete Blood Cnt No Di ffon 05-11-2024 Erythrocyte distribution width (RBC) [Ratio] 12.8 % Normal 11.6-14.6 [facility] Comment on above: Performed By: #### L 500.2500, L100.0500 ####[facility] [address] [place], [address] Hematocrit (Bld) [Volume fraction] 36.7 % Low 40-54 [facility] Comment on above: Performed By: #### L 500.2500, L100.0500 ####[facility] [address] [place], [address] Hemoglobin (Bld) [Mass/Vol] 12.3 g/dL Low 13.0-16.5 [facility] Comment on above: Performed By: #### L 500.2500, L100.0500 ####[facility] [address] [place], [address] MCH (RBC) [Entitic mass] 29.9 pg Normal 27.0-32.0 [facility] Comment on above: Performed By: #### L 500.2500, L100.0500 ####[facility] [address] [place], [address] MCHC (RBC) [Mass/Vol] 33.5 g/dL Normal 32-36 [facility] Comment on above: Performed By: #### L 500.2500, L100.0500 ####[facility] [address] [place], [address] MCV (RBC) [Entitic vol] 89.1 fL Normal 80-94 [facility] Comment on above: Performed By: #### L 500.2500, L100.0500 ####[facility] [address] [place], [address] Platelet mean volume (Bld) [Entitic vol] 8.8 fL Normal 6.2-12.0 [facility] Comment on above: Performed By: #### L 500.2500, L100.0500 ####[facility] [address] [place], [address] Platelets (Bld) [#/Vol] 232 10*3/uL Normal 150-450 [facility] Comment on above: Performed By: #### L 500.2500, L100.0500 ####[facility] [address] [place], [address] RBC (Bld) [#/Vol] 4.12 10*6/uL Low 4.6-6.2 [facility] Comment on above: Performed By: #### L 500.2500, L100.0500 ####[facility] [address] [place], [address] RDW SD 41.8 fl Normal 35.1-43.9 [facility] Comment on above: Performed By: #### L 500.2500, L100.0500 ####[facility] [address] [place], [address] WBC (Bld) [#/Vol] 9.9 10*3/uL Normal 4.4-11.0 [facility] Comment on above: Performed By: #### L 500.2500, L100.0500 ####[facility] [address] [place], [address] Carbon dioxide, total [Moles /volume] in Central venous bloodOrdered By: Corazon Wright on 05-11-2024 CO2 [Moles/Vol] 23.4 mmol/L 21.0-32.0 [facility] Chloride assayOrdered By: Phil Wright on 05-11-2024 Chloride [Moles/Vol] 104 mmol/L 98-108 [facility] Erythrocyte distribution wid th (RBC) [Ratio]Ordered By: Corazon Wright on 05-11-2024 Erythrocyte distribution width (RBC) [Entitic vol] 41.8 fL 35.1-43.9 [facility] Erythrocyte distribution wid th ratioOrdered By: Corazon Wright on 05-11-2024 Erythrocyte distribution width (RBC) [Ratio] 12.8 % 11.6-14.6 [facility] Erythrocyte distribution wid th standard deviationOrdered By: Corazon Wright on 05-11-2024 Erythrocyte distribution width (RBC) [Ratio] 41.8 fl 35.1-43.9 [facility] Estimation of creatinine yahir aranceOrdered By: Corazon Wright on 05-11-2024 Estimated Creatinine Clearance Calc 57.40 ml/min 50-250 [facility] GFR/1.73 sq M.predicted darrick g non-blacks MDRD (S/P/Bld) [Vol rate/Area]Ordered By: Corazon Wright on 05-11-2024 Estimated GFR (MDRD) Non-Af Amer 79 >60 [facility] Comment on above: mL/min/1.73m2 CKD-EP I Creatinine Equation (2020) Glomerular filtration rate ( GFR) estimation/1.73 sq m using serum, plasma, or whole bOrdered By: Corazon Wright on 05-11-2024 GFR/1.73 sq M.predicted among non-blacks MDRD (S/P/Bld) [Vol rate/Area] 79 mL/min/{1.73_m2} >60 [facility] Hematocrit Auto (Bld) [Volum e fraction]Ordered By: Corazon Wright on 05-11-2024 Hematocrit (Bld) [Volume fraction] 36.7 % Low 40-54 [facility] Hemoglobin measurementOrdere d By: Corazon Wright on 05-11-2024 Hemoglobin (Bld) [Mass/Vol] 12.3 g/dL Low 13.0-16.5 [facility] MCV (mean corpuscular volume ) determinationOrdered By: Corazon Wright on 05-11-2024 MCV (RBC) [Entitic vol] 89.1 fL 80-94 [facility] Mean corpuscular hemoglobin (MCH) determinationOrdered By: Corazon Wright on 05-11-2024 MCH (RBC) [Entitic mass] 29.9 pg 27.0-32.0 [facility] Mean corpuscular hemoglobin concentration (MCHC) determinationOrdered By: Corazon Wright on 05-11-2024 MCHC (RBC) [Mass/Vol] 33.5 g/dL 32-36 [facility] Mean platelet volume determi nationOrdered By: Corazon Wright on 05-11-2024 Platelet mean volume (Bld) [Entitic vol] 8.8 fL 6.2-12.0 [facility] Platelet countOrdered By: Phil Wright on 05-11-2024 Platelets (Bld) [#/Vol] 232 10*3/uL 150-450 [facility] Potassium (Unsp spec) [Mass/ Vol]Ordered By: Corazon Kyle on 05-11-2024 Potassium [Moles/Vol] 4.5 mmol/L 3.3-5.1 [facility] Potassium measurement (mass/ volume)Ordered By: Corazon Wright on 05-11-2024 Potassium (Unsp spec) [Mass/Vol] 4.5 mmol/L 3.3-5.1 [facility] RBC Auto (Bld) [#/Vol]Ordere d By: Corazon Wright on 05-11-2024 RBC (Bld) [#/Vol] 4.12 10*6/uL Low 4.6-6.2 [facility] Serum creatinine measurement (mass/volume)Ordered By: Corazon Wright on 05-11-2024 Creatinine [Mass/Vol] 0.96 mg/dL 0.70-1.20 [facility] Serum glucose measurement (m ass/volume)Ordered By: Corazon Wright on 05-11-2024 Glucose [Mass/Vol] 116 mg/dL High 70-99 [facility] Serum or plasma calcium ratna urement (mass/volume)Ordered By: Corazon Wright on 05-11-2024 Calcium [Mass/Vol] 8.6 mg/dL 7.6-11.0 [facility] Serum or plasma urea nitroge n measurement (mass/volume)Ordered By: Corazon Wright on 05-11-2024 Urea nitrogen [Mass/Vol] 34 mg/dL High 4-19 [facility] Sodium levelOrdered By: Corazon Wright on 05-11-2024 Sodium [Moles/Vol] 137 mmol/L 133-145 [facility] White blood cell (WBC) count Ordered By: Corazon Wright on 05-11-2024 WBC (Bld) [#/Vol] 9.9 10*3/uL 4.4-11.0 [facility] Bilirubin Test strip Ql (U)O rdered By: Mariano Chan on 05-10-2024 Bilirubin Ql (U) Negative Negative [facility] Cerv Spine 2 or 3 Viewson Cerv Spine 2 or 3 Views Normal [facility] Epithelial cells.squamous LM Ql (Urine sed)Ordered By: Mariano Chan on 05-10-2024 Epithelial cells.squamous LM.HPF (Urine sed) [#/Area] 0 /[HPF] 0-5 [facility] Glucose Ql (U)Ordered By: Fabian Chan on 05-10-2024 Urine Glucose (UA) Normal mg/dl Normal [facility] Ketones Test strip Ql (U)Ord ered By: Mariano Chan on 05-10-2024 Ketones Ql (U) Negative Negative [facility] Microscopic analysis of urin e for red blood cells (RBC)Ordered By: Mariano Chan on 05-10-2024 Urine RBC 10-25 SEEN /hpf 0-5 [facility] Mucus LM Ql (Urine sed)Order ed By: Mariano Chan on 05-10-2024 Mucus Ql (Urine sed) 0 SEEN /hpf [facility] Nitrite Test strip Ql (U)Ord ered By: Mariano Chan on 05-10-2024 Nitrite Ql (U) Positive High Negative [facility] Protein Test strip Ql (U)Ord ered By: Mariano Chan on 05-10-2024 Protein Ql (U) 500 mg/dl High Negative [facility] Squamous epithelial cells de tection in urine sediment by light microscopyOrdered By: Mariano Chan on 05-10-2024 Epithelial cells.squamous LM Ql (Urine sed) 0 SEEN /hpf 0- [facility] Urinalysis, Completeon 05-10 BACTERIA 2+ /hpf Normal None Seen [facility] Comment on above: Order Comment: YOSVANY TER SPECIMEN Performed By: #### L 400.0001, ####[facility] [address] [place], [address] RBC 10-25 SEEN Normal 0-5 [facility] Comment on above: Order Comment: YOSVANY TER SPECIMEN Performed By: #### L 400.0001, ####[facility] [address] [place], [address] WBC 25-50 SEEN Normal 0-5 [facility] Comment on above: Order Comment: YOSVANY TER SPECIMEN Performed By: #### L 400.0001, M100.0 ####[facility] [address] [place], [address] EPI,SQUAMOUS 0 SEEN Normal 0-5 [facility] Comment on above: Order Comment: YOSVANY TER SPECIMEN Performed By: #### L 400.0001, M100.2200 ####[facility] [address] [place], [address] Mucus Ql (Urine sed) 0 SEEN Normal [facility] Comment on above: Order Comment: YOSVANY TER SPECIMEN Performed By: #### L 400.0001, M100.0 ####[facility] [address] [place], [address] Urine blood detectionOrdered By: Mariano Chan on 05-10-2024 Urine Occult Blood 250 /ul High Negative [facility] Urine clarityOrdered By: Mariano Chan on 05-10-2024 Clarity (U) Sl. Cloudy Clear [facility] Urine color determinationOrd ered By: Mariano Chan on 05-10-2024 Color (U) Yellow Yellow [facility] Urine cultureOrdered By: Mariano Chan on 05-10-2024 Bacteria identified Cx Nom (U) Enterobacter cloacae complex Abnormal [facility] Urine glucose detectionOrder ed By: Mariano Chan on 05-10-2024 Glucose Ql (U) Normal mg/dl Normal [facility] Urine leukocyte esterase det ection by dipstickOrdered By: Mariano Chan on 05-10-2024 Leukocyte esterase Test strip Ql (U) 500 /ul High Negative [facility] Urine pHOrdered By: Mariano Chan on 05-10-2024 pH (U) 6.0 [pH] 5.0 - 8.0 [facility] Urine sediment bacteria coun t by microscopy (number/high power field)Ordered By: Mariano Chan on 05-10-2024 Bacteria LM.HPF (Urine sed) [#/Area] 2 /[HPF] None Seen [facility] Urine specific gravity measu rementOrdered By: Mariano Chan on 05-10-2024 Specific gravity (U) [Rel density] 1.015 1.002-1.030 [facility] Urine urobilinogen measureme ntOrdered By: Mariano Chan on 05-10-2024 Urobilinogen Ql (U) Normal mg/dl Normal [facility] Urobilinogen Ql (U)Ordered B y: Mariano Chan on 05-10-2024 Urine Urobilinogen Normal mg/dl Normal [facility] White blood cell countOrdere d By: Mariano Chan on 05-10-2024 Urine WBC 25-50 SEEN /hpf 0-5 [facility] White blood cell count 25-50 SEEN /hpf 0-5 [facility] Modified Barium Swallow Stud yon 05-09-2024 Modified Barium Swallow Study Normal [facility] Basic Metabolic Profile (BMP )on 05-04-2024 BUN/CRE 18.0 RATIO Normal 10-20 [facility] Comment on above: Performed By: #### L 500.2500 ####[facility] [address] [facility] [address] Calcium [Mass/Vol] 8.2 mg/dL Normal 7.6-11.0 [facility] Comment on above: Performed By: #### L 500.2500 ####[facility] [address] [facility] [address] Chloride [Moles/Vol] 111 mmol/L High 98-108 [facility] Comment on above: Performed By: #### L 500.2500 ####[facility] [address] [place], [address] CO2 [Moles/Vol] 21.7 mmol/L Normal 21.0-32.0 [facility] Comment on above: Performed By: #### L 500.2500 ####[facility] [address] [place], [address] Creatinine [Mass/Vol] 0.73 mg/dL Normal 0.70-1.20 [facility] Comment on above: Performed By: #### L 500.2500 ####[facility] [address] [place], [address] ECRCL 68.88 ml/min Normal 50-250 [facility] Comment on above: Performed By: #### L 500.2500 ####[facility] [address] [place], [address] GAP 8 Normal 5-15 [facility] Comment on above: Performed By: #### L 500.2500 ####[facility] [address] [place], [address] GFR/1.73 sq M.predicted among non-blacks MDRD (S/P/Bld) [Vol rate/Area] 91 mL/min/{1.73_m2} Normal >60 [facility] Comment on above: Result Comment: mL/m in/1.73m2 CKD-EPI Creatinine Equation (2020) Performed By: #### L 500.2500 ####[facility] [address] [place], [address] Glucose [Mass/Vol] 99 mg/dL Normal 70-99 [facility] Comment on above: Performed By: #### L 500.2500 ####[facility] [address] [place], [address] Potassium [Moles/Vol] 4.2 mmol/L Normal 3.3-5.1 [facility] Comment on above: Performed By: #### L 500.2500 ####[facility] [address] [place], [address] Sodium [Moles/Vol] 140 mmol/L Normal 133-145 [facility] Comment on above: Performed By: #### L 500.2500 ####[facility] [address] [place], [address] Urea nitrogen [Mass/Vol] 13 mg/dL Normal 4-19 [facility] Comment on above: Performed By: #### L 500.2500 ####[facility] [address] [place], [address] HH, Hemoglobin AND Hematocri ton 05-04-2024 Hematocrit (Bld) [Volume fraction] 37.1 % Low 40-54 [facility] Comment on above: Performed By: #### L 100.0600 ####[facility] [address] [place], [address] Hemoglobin (Bld) [Mass/Vol] 12.5 g/dL Low 13.0-16.5 [facility] Comment on above: Performed By: #### L 100.0600 ####[facility] [address] [place], [address] HH, Hemoglobin AND Hematocri ton 05-03-2024 Hematocrit (Bld) [Volume fraction] 38.8 % Low 40-54 [facility] Comment on above: Performed By: #### L 100.0600 ####[facility] [address] [place], [address] Hemoglobin (Bld) [Mass/Vol] 12.9 g/dL Low 13.0-16.5 [facility] Comment on above: Performed By: #### L 100.0600 ####[facility] [address] [place], [address] SP/SP.FEESon 05-02-2024 SP/SP.FEES Normal [facility] Basic Metabolic Profile (BMP )on 05-01-2024 BUN/CRE 21.7 RATIO High 10-20 [facility] Comment on above: Performed By: #### L 500.2500, L501.2300, L100.0500 ####[facility] [address] [place], [address] Calcium [Mass/Vol] 8.1 mg/dL Normal 7.6-11.0 [facility] Comment on above: Performed By: #### L 500.2500, L501.2300, L100.0500 ####[facility] [address] [place], [address] Chloride [Moles/Vol] 109 mmol/L High 98-108 [facility] Comment on above: Performed By: #### L 500.2500, L501.2300, L100.0500 ####[facility] [address] [place], [address] CO2 [Moles/Vol] 23.7 mmol/L Normal 21.0-32.0 [facility] Comment on above: Performed By: #### L 500.2500, L501.2300, L100.0500 ####[facility] [address] [place], [address] Creatinine [Mass/Vol] 0.74 mg/dL Normal 0.70-1.20 [facility] Comment on above: Performed By: #### L 500.2500, L501.2300, L100.0500 ####[facility] [address] [place], [address] ECRCL 68.88 ml/min Normal 50-250 [facility] Comment on above: Performed By: #### L 500.2500, L501.2300, L100.0500 ####[facility] [address] [place], [address] GAP 8 Normal 5-15 [facility] Comment on above: Performed By: #### L 500.2500, L501.2300, L100.0500 ####[facility] [address] [place], [address] GFR/1.73 sq M.predicted among non-blacks MDRD (S/P/Bld) [Vol rate/Area] 91 mL/min/{1.73_m2} Normal >60 [facility] Comment on above: Result Comment: mL/m in/1.73m2 CKD-EPI Creatinine Equation (2020) Performed By: #### L 500.2500, L501.2300, L100.0500 ####[facility] [address] [place], [address] Glucose [Mass/Vol] 99 mg/dL Normal 70-99 [facility] Comment on above: Performed By: #### L 500.2500, L501.2300, L100.0500 ####[facility] [address] [place], [address] Potassium [Moles/Vol] 4.5 mmol/L Normal 3.3-5.1 [facility] Comment on above: Performed By: #### L 500.2500, L501.2300, L100.0500 ####[facility] [address] [place], [address] Sodium [Moles/Vol] 141 mmol/L Normal 133-145 [facility] Comment on above: Performed By: #### L 500.2500, L501.2300, L100.0500 ####[facility] [address] [place], [address] Urea nitrogen [Mass/Vol] 16 mg/dL Normal 4-19 [facility] Comment on above: Performed By: #### L 500.2500, L501.2300, L100.0500 ####[facility] [address] [place], [address] CBC-Complete Blood Cnt No Di ffon 05-01-2024 Erythrocyte distribution width (RBC) [Ratio] 12.8 % Normal 11.6-14.6 [facility] Comment on above: Performed By: #### L 500.2500, L501.2300, L100.0500 ####[facility] [address] [place], [address] Hematocrit (Bld) [Volume fraction] 35.2 % Low 40-54 [facility] Comment on above: Performed By: #### L 500.2500, L501.2300, L100.0500 ####[facility] [address] [place], [address] Hemoglobin (Bld) [Mass/Vol] 11.9 g/dL Low 13.0-16.5 [facility] Comment on above: Performed By: #### L 500.2500, L501.2300, L100.0500 ####[facility] [address] [place], [address] MCH (RBC) [Entitic mass] 30.2 pg Normal 27.0-32.0 [facility] Comment on above: Performed By: #### L 500.2500, L501.2300, L100.0500 ####[facility] [address] [place], [address] MCHC (RBC) [Mass/Vol] 33.8 g/dL Normal 32-36 [facility] Comment on above: Performed By: #### L 500.2500, L501.2300, L100.0500 ####[facility] [address] [place], [address] MCV (RBC) [Entitic vol] 89.3 fL Normal 80-94 [facility] Comment on above: Performed By: #### L 500.2500, L501.2300, L100.0500 ####[facility] [address] [place], [address] Platelet mean volume (Bld) [Entitic vol] 8.6 fL Normal 6.2-12.0 [facility] Comment on above: Performed By: #### L 500.2500, L501.2300, L100.0500 ####[facility] [address] [place], [address] Platelets (Bld) [#/Vol] 149 10*3/uL Low 150-450 [facility] Comment on above: Performed By: #### L 500.2500, L501.2300, L100.0500 ####[facility] [address] [place], [address] RBC (Bld) [#/Vol] 3.94 10*6/uL Low 4.6-6.2 [facility] Comment on above: Performed By: #### L 500.2500, L501.2300, L100.0500 ####[facility] [address] [place], [address] RDW SD 41.9 fl Normal 35.1-43.9 [facility] Comment on above: Performed By: #### L 500.2500, L501.2300, L100.0500 ####[facility] [address] [place], [address] WBC (Bld) [#/Vol] 8.4 10*3/uL Normal 4.4-11.0 [facility] Comment on above: Performed By: #### L 500.2500, L501.2300, L100.0500 ####[facility] [address] [place], [address] Electrocardiogram reportOrde red By: David Granados on 05-01-2024 EKG study [facility] [address] [place] [address] 12 Lead EKG 04/30/24 1706 MR#: [id number] Acct: [id number] Name: MOEYAS Brigido Rep #:[id number] : 1940 83 From: David Granados MD Attending Dr: Dr. Corazon Wright DO Status: ADM IN Ordering Dr: Corazon Wright DO Date: 04/30/24 Location: RU Sex: M C Admitted: 04/27/24 Test Reason : ARRYTHMIA Blood Pressure : */* mmHG Vent. Rate : 59 BPM Atrial Rate : 59 BPM P-R Int : 130 ms QRS Dur : 86 ms QT Int : 418 ms P-R-T Axes : 41 -2 40 degrees QTcB Int : 413 ms Sinus bradycardia Otherwise normal ECG When compared with ECG of 24-Apr-2024 05:01, No significant change was found Confirmed by DARWIN CABELLO, DAVID ([id number]), managing editor LEANDER BRAY ([id number]) on :48:33 AM Referred By: Corazon Wright Confirmed By: DAVID GRANADOS MD 05/01/2448 Date _ David Granados MD CC: Dr. Kwabena Menjivar MD; Dr. Corazon Wright, DO ~ Signed [facility] Work Phone: Phosphoruson 05-01-2024 Phosphate [Mass/Vol] 3.3 mg/dL Normal 2.7-4.5 [facility] Comment on above: Performed By: #### L 500.2500, L501.2300, L100.0500 ####[facility] [address] [place], [address] Serum phosphorus measurement Ordered By: Corazon Wright on 05-01-2024 Phosphorus Level 3.3 mg/dL 2.7-4.5 [facility] 12 Lead EKGon 04-30-2024 12 Lead EKG Normal [facility] CBC-Complete Blood Cnt No Di ffon 04-29-2024 HCT Normal 40-54 [facility] Comment on above: Result Comment: Daniel hamm via OM: Ordered Performed By: #### L 100.0500 ####[facility] [address] [place], [address] HGB Normal 13.0-16.5 [facility] Comment on above: Result Comment: Daniel hamm via OM: Ordered Performed By: #### L 100.0500 ####[facility] [address] [place], [address] MCH Normal 27.0-32.0 [facility] Comment on above: Result Comment: Daniel hamm via OM: MD Ordered Performed By: #### L 100.0500 ####[facility] [address] [place], [address] MCHC Normal 32-36 [facility] Comment on above: Result Comment: Canc elled via OM: MD Ordered Performed By: #### L 100.0500 ####[facility] [address] [place], [address] MCV Normal 80-94 [facility] Comment on above: Result Comment: Canc elled via OM: MD Ordered Performed By: #### L 100.0500 ####[facility] [address] [place], [address] PLT Normal 150-450 [facility] Comment on above: Result Comment: Canc elled via OM: MD Ordered Performed By: #### L 100.0500 ####[facility] [address] [place], [address] RBC Normal 4.6-6.2 [facility] Comment on above: Result Comment: Canc elled via OM: MD Ordered Performed By: #### L 100.0500 ####[facility] [address] [place], [address] RDW CV Normal 11.6-14.6 [facility] Comment on above: Result Comment: Canc elled via OM: MD Ordered Performed By: #### L 100.0500 ####[facility] [address] [place], [address] RDW SD Normal 35.1-43.9 [facility] Comment on above: Result Comment: Canc elled via OM: MD Ordered Performed By: #### L 100.0500 ####[facility] [address] [place], [address] WBC Normal 4.4-11.0 [facility] Comment on above: Result Comment: Canc elled via OM: MD Ordered Performed By: #### L 100.0500 ####[facility] [address] [place], [address] L509.6001on 04-29-2024 CORTISOL 25.80 ug/dL High 6.02-18.40 [facility] Comment on above: Order Comment: Must be drawn 30-60 min AFTER cosyntropin admin. Performed By: #### L 509.6001 ####[facility] [address] [place], [address] CORTISOL 11.10 ug/dL Normal 6.02-18.40 [facility] Comment on above: Order Comment: must be performed shortly BEFORE cosyntropin admin Performed By: #### L 509.6001 ####[facility] [address] [place], [address] Lower GI hemoglobin IA Ql (S tl)Ordered By: Corazon Wright on 04-29-2024 Stool Occult Blood (JERMAINE) [facility] No Panel InformationOrdered By: Corazon Wright on 04-29-2024 Cortisol AM Sample 25.80 ug/dL High 6.02-18.40 [facility] 25.80 ug/dL High 6.02-18.40 [facility] Stool Occult Blood iFOBon STOB Negative Normal [facility] Comment on above: Performed By: #### M 100.7900 ####[facility] [address] [place], [address] Stool gastrointestinal hemog lobin detection by immunologic methodOrdered By: Corazon Wright on 04-29-2024 Lower GI hemoglobin IA Ql (Stl) [facility] Urine Cultureon 04-29-2024 URC Culture exhibits no growth. Normal [facility] Comment on above: Performed By: #### M 100.2200 ####[facility] [address] [place], [address] Basic Metabolic Profile (BMP )on 04-28-2024 BUN/CRE 30.3 RATIO High 10-20 [facility] Comment on above: Performed By: #### L 501.5200, L501.2300, L100.0500, L500.2500 ####[facility] [address] [place], [address] Calcium [Mass/Vol] 8.0 mg/dL Normal 7.6-11.0 [facility] Comment on above: Performed By: #### L 501.5200, L501.2300, L100.0500, L500.2500 ####[facility] [address] [place], [address] Chloride [Moles/Vol] 106 mmol/L Normal 98-108 [facility] Comment on above: Performed By: #### L 501.5200, L501.2300, L100.0500, L500.2500 ####[facility] [address] [place], [address] CO2 [Moles/Vol] 22.8 mmol/L Normal 21.0-32.0 [facility] Comment on above: Performed By: #### L 501.5200, L501.2300, L100.0500, L500.2500 ####[facility] [address] [place], [address] Creatinine [Mass/Vol] 0.89 mg/dL Normal 0.70-1.20 [facility] Comment on above: Performed By: #### L 501.5200, L501.2300, L100.0500, L500.2500 ####[facility] [address] [place], [address] ECRCL 61.91 ml/min Normal 50-250 [facility] Comment on above: Performed By: #### L 501.5200, L501.2300, L100.0500, L500.2500 ####[facility] [address] [place], [address] GAP 8 Normal 5-15 [facility] Comment on above: Performed By: #### L 501.5200, L501.2300, L100.0500, L500.2500 ####[facility] [address] [place], [address] GFR/1.73 sq M.predicted among non-blacks MDRD (S/P/Bld) [Vol rate/Area] 86 mL/min/{1.73_m2} Normal >60 [facility] Comment on above: Result Comment: mL/m in/1.73m2 CKD-EPI Creatinine Equation (2020) Performed By: #### L 501.5200, L501.2300, L100.0500, L500.2500 ####[facility] [address] [place], [address] Glucose [Mass/Vol] 91 mg/dL Normal 70-99 [facility] Comment on above: Performed By: #### L 501.5200, L501.2300, L100.0500, L500.2500 ####[facility] [address] [place], [address] Potassium [Moles/Vol] 4.6 mmol/L Normal 3.3-5.1 [facility] Comment on above: Performed By: #### L 501.5200, L501.2300, L100.0500, L500.2500 ####[facility] [address] [place], [address] Sodium [Moles/Vol] 137 mmol/L Normal 133-145 [facility] Comment on above: Performed By: #### L 501.5200, L501.2300, L100.0500, L500.2500 ####[facility] [address] [place], [address] Urea nitrogen [Mass/Vol] 27 mg/dL High 4-19 [facility] Comment on above: Performed By: #### L 501.5200, L501.2300, L100.0500, L500.2500 ####[facility] [address] [place], [address] BUN Normal 4-19 [facility] Comment on above: Result Comment: Canc elled via OM: Order cancelled - Patient discharged Performed By: #### L 500.2500 ####[facility] [address] [place], [address] BUN/CRE Normal 10-20 [facility] Comment on above: Result Comment: Canc elled via OM: Order cancelled - Patient discharged Performed By: #### L 500.2500 ####[facility] [address] [place], [address] Calcium Normal 7.6-11.0 [facility] Comment on above: Result Comment: Canc elled via OM: Order cancelled - Patient discharged Performed By: #### L 500.2500 ####[facility] [address] [place], [address] CL Normal 98-108 [facility] Comment on above: Result Comment: Canc elled via OM: Order cancelled - Patient discharged Performed By: #### L 500.2500 ####[facility] [address] [place], [address] CO2 Normal 21.0-32.0 [facility] Comment on above: Result Comment: Canc elled via OM: Order cancelled - Patient discharged Performed By: #### L 500.2500 ####[facility] [address] [place], [address] CREAT,SERUM Normal 0.70-1.20 [facility] Comment on above: Result Comment: Canc elled via OM: Order cancelled - Patient discharged Performed By: #### L 500.2500 ####[facility] [address] [place], [address] eGFR Normal >60 [facility] Comment on above: Result Comment: Canc elled via OM: Order cancelled - Patient discharged Performed By: #### L 500.2500 ####[facility] [address] [place], [address] GAP Normal 5-15 [facility] Comment on above: Result Comment: Canc elled via OM: Order cancelled - Patient discharged Performed By: #### L 500.2500 ####[facility] [address] [place], [address] GLU Normal 70-99 [facility] Comment on above: Result Comment: Canc elled via OM: Order cancelled - Patient discharged Performed By: #### L 500.2500 ####[facility] [address] [place], [address] Potassium Normal 3.3-5.1 [facility] Comment on above: Result Comment: Canc elled via OM: Order cancelled - Patient discharged Performed By: #### L 500.2500 ####[facility] [address] [place], [address] Basic Metabolic Profile (BMP) Normal 133-145 [facility] Comment on above: Result Comment: Canc elled via OM: Order cancelled - Patient discharged Performed By: #### L 500.2500 ####[facility] [address] [place], [address] Bilirubin directOrdered By: Corazon Wright on 04-28-2024 Bilirubin.direct [Mass/Vol] 0.18 mg/dL 0.00-0.30 [facility] Bilirubin, totalOrdered By: Corazon Wright on 04-28-2024 Bilirubin [Mass/Vol] 0.37 mg/dL 0.00-1.30 [facility] CBC W/Diff, Automatedon - Absolute Neut Normal 2.0-7.7 [facility] Comment on above: Result Comment: Canc elled via OM: Order cancelled - Patient discharged Performed By: #### L 100.0100 ####[facility] [address] [place], [address] HCT Normal 40-54 [facility] Comment on above: Result Comment: Canc elled via OM: Order cancelled - Patient discharged Performed By: #### L 100.0100 ####[facility] [address] [place], [address] HGB Normal 13.0-16.5 [facility] Comment on above: Result Comment: Canc elled via OM: Order cancelled - Patient discharged Performed By: #### L 100.0100 ####[facility] [address] [place], [address] MCH Normal 27.0-32.0 [facility] Comment on above: Result Comment: Canc elled via OM: Order cancelled - Patient discharged Performed By: #### L 100.0100 ####[facility] [address] [place], [address] MCHC Normal 32-36 [facility] Comment on above: Result Comment: Canc elled via OM: Order cancelled - Patient discharged Performed By: #### L 100.0100 ####[facility] [address] [place], [address] MCV Normal 80-94 [facility] Comment on above: Result Comment: Canc elled via OM: Order cancelled - Patient discharged Performed By: #### L 100.0100 ####[facility] [address] [place], [address] NEUT% Normal 47-70 [facility] Comment on above: Result Comment: Canc elled via OM: Order cancelled - Patient discharged Performed By: #### L 100.0100 ####[facility] [address] [place], [address] PLT Normal 150-450 [facility] Comment on above: Result Comment: Canc elled via OM: Order cancelled - Patient discharged Performed By: #### L 100.0100 ####[facility] [address] [place], [address] RBC Normal 4.6-6.2 [facility] Comment on above: Result Comment: Canc elled via OM: Order cancelled - Patient discharged Performed By: #### L 100.0100 ####[facility] [address] [place], [address] RDW CV Normal 11.6-14.6 [facility] Comment on above: Result Comment: Canc elled via OM: Order cancelled - Patient discharged Performed By: #### L 100.0100 ####[facility] [address] [place], [address] RDW SD Normal 35.1-43.9 [facility] Comment on above: Result Comment: Canc elled via OM: Order cancelled - Patient discharged Performed By: #### L 100.0100 ####[facility] [address] [place], [address] WBC Normal 4.4-11.0 [facility] Comment on above: Result Comment: Canc elled via OM: Order cancelled - Patient discharged Performed By: #### L 100.0100 ####[facility] [address] [place], [address] CBC-Complete Blood Cnt No Di ffon 04-28-2024 Erythrocyte distribution width (RBC) [Ratio] 12.7 % Normal 11.6-14.6 [facility] Comment on above: Performed By: #### L 501.5200, L501.2300, L100.0500, L500.2500 ####[facility] [address] [place], [address] Hematocrit (Bld) [Volume fraction] 35.3 % Low 40-54 [facility] Comment on above: Performed By: #### L 501.5200, L501.2300, L100.0500, L500.2500 ####[facility] [address] [place], [address] Hemoglobin (Bld) [Mass/Vol] 12.4 g/dL Low 13.0-16.5 [facility] Comment on above: Performed By: #### L 501.5200, L501.2300, L100.0500, L500.2500 ####[facility] [address] [place], [address] MCH (RBC) [Entitic mass] 30.6 pg Normal 27.0-32.0 [facility] Comment on above: Performed By: #### L 501.5200, L501.2300, L100.0500, L500.2500 ####[facility] [address] [place], [address] MCHC (RBC) [Mass/Vol] 35.1 g/dL Normal 32-36 [facility] Comment on above: Performed By: #### L 501.5200, L501.2300, L100.0500, L500.2500 ####[facility] [address] [place], [address] MCV (RBC) [Entitic vol] 87.2 fL Normal 80-94 [facility] Comment on above: Performed By: #### L 501.5200, L501.2300, L100.0500, L500.2500 ####[facility] [address] [place], [address] Platelet mean volume (Bld) [Entitic vol] 8.8 fL Normal 6.2-12.0 [facility] Comment on above: Performed By: #### L 501.5200, L501.2300, L100.0500, L500.2500 ####[facility] [address] [place], [address] Platelets (Bld) [#/Vol] 164 10*3/uL Normal 150-450 [facility] Comment on above: Performed By: #### L 501.5200, L501.2300, L100.0500, L500.2500 ####[facility] [address] [place], [address] RBC (Bld) [#/Vol] 4.05 10*6/uL Low 4.6-6.2 [facility] Comment on above: Performed By: #### L 501.5200, L501.2300, L100.0500, L500.2500 ####[facility] [address] [place], [address] RDW SD 40.3 fl Normal 35.1-43.9 [facility] Comment on above: Performed By: #### L 501.5200, L501.2300, L100.0500, L500.2500 ####[facility] [address] [place], [address] WBC (Bld) [#/Vol] 11.3 10*3/uL High 4.4-11.0 [facility] Comment on above: Performed By: #### L 501.5200, L501.2300, L100.0500, L500.2500 ####[facility] [address] [place], [address] L509.6001on 04-28-2024 CORTISOL 3.92 ug/dL Low 6.02-18.40 [facility] Comment on above: Order Comment: Cecelia snyder use the blood drawn this AM Performed By: #### L 509.6001 ####[facility] [address] [place], [address] Laboratory - Chemistry and C hemistry - challengeOrdered By: Corazon Wright on 04-28-2024 AST [Catalytic activity/Vol] 25 U/L <38 [facility] Liver Profileon 04-28-2024 Albumin [Mass/Vol] 3.1 g/dL Low 3.4-4.8 [facility] Comment on above: Performed By: #### L 501.9520, L500.3400 ####[facility] [address] [place], [address] ALK PHOS 70 U/L Normal 40-129 [facility] Comment on above: Performed By: #### L 501.9520, L500.3400 ####[facility] [address] [place], [address] ALT [Catalytic activity/Vol] 44 U/L Normal <=46 [facility] Comment on above: Performed By: #### L 501.9520, L500.3400 ####[facility] [address] [place], [address] AST [Catalytic activity/Vol] 25 U/L Normal <=37 [facility] Comment on above: Performed By: #### L 501.9520, L500.3400 ####[facility] [address] [place], [address] Bilirubin [Mass/Vol] 0.37 mg/dL Normal 0.00-1.30 [facility] Comment on above: Performed By: #### L 501.9520, L500.3400 ####[facility] [address] [place], [address] Bilirubin.direct [Mass/Vol] 0.18 mg/dL Normal 0.00-0.30 [facility] Comment on above: Performed By: #### L 501.9520, L500.3400 ####[facility] [address] [place], [address] Globulin (S) [Mass/Vol] 2.0 g/dL Low 2.2-4.2 [facility] Comment on above: Performed By: #### L 501.9520, L500.3400 ####[facility] [address] [place], [address] T PROT 5.1 g/dL Low 5.9-8.4 [facility] Comment on above: Performed By: #### L 501.9520, L500.3400 ####[facility] [address] [place], [address] Magnesiumon 04-28-2024 Magnesium [Mass/Vol] 2.6 mg/dL High 1.5-2.2 [facility] Comment on above: Performed By: #### L 501.5200, L501.2300, L100.0500, L500.2500 ####[facility] [address] [place], [address] Magnesium (Unsp spec) [Mass/ Vol]Ordered By: Corazon Wright on 04-28-2024 Magnesium [Mass/Vol] 2.6 mg/dL High 1.5-2.2 [facility] Magnesium measurement (mass/ volume)Ordered By: Corazon Wright on 04-28-2024 Magnesium (Unsp spec) [Mass/Vol] 2.6 mg/dL High 1.5-2.2 [facility] No Panel InformationOrdered By: Corazon Wright on 04-28-2024 25 U/L <38 [facility] PSA, total screeningOrdered By: Corazon Wright on 04-28-2024 Prostate Specific Antigen Screen 0.33 ng/mL 0.02-4.00 [facility] Comment on above: This test was perfor med using the [employer] tPSA method. Measured values of a patient sample can vary depending on the testing procedure used. PSA values determined on patient samples by different testing procedures cannot be used interchangeably. If there is a change in PSA assays while monitoring therapy, sequential testing should be performed to confirm baseline values. PSA,Total - Annual Screenon 04-28-2024 PSA,TOT SCREEN 0.33 ng/mL Normal 0.02-4.00 [facility] Comment on above: Result Comment: This test was performed using the [employer] tPSAmethod. Measured values of a patient??sample can varydepending on the testing procedure used. PSA valuesdetermined on patient samples by different testingprocedures cannot be used interchangeably. If there is achange in PSA assays while monitoring therapy, sequentialtesting should be performed to confirm baseline values. Performed By: #### L 501.9910 ####[facility] [address] [place], [address] Phosphoruson 04-28-2024 Phosphate [Mass/Vol] 2.4 mg/dL Low 2.7-4.5 [facility] Comment on above: Performed By: #### L 501.5200, L501.2300, L100.0500, L500.2500 ####[facility] [address] [place], [address] Serum globulin measurementOr dered By: Corazon Wright on 04-28-2024 Globulin (S) [Mass/Vol] 2.0 g/dL Low 2.2-4.2 [facility] Serum or plasma alanine olmedo otransferase (ALT) measurementOrdered By: Corazon Wright on 04-28-2024 ALT [Catalytic activity/Vol] 44 U/L <47 [facility] Serum or plasma albumin ratna urement (mass/volume)Ordered By: Corazon Wright on 04-28-2024 Albumin [Mass/Vol] 3.1 g/dL Low 3.4-4.8 [facility] Serum or plasma alkaline garry sphatase measurementOrdered By: Corazon Wright on 04-28-2024 ALP [Catalytic activity/Vol] 70 U/L 40-129 [facility] TSH DL <= 0.005 mIU/L QnOrde red By: Corazon Wright on 04-28-2024 Thyroid Stimulating Hormone (TSH) 1.030 uIU/mL 0.300-4.200 [facility] TSH Qn 1.030 uIU/mL 0.300-4.200 [facility] Thyroid Stim Hormone (TSH)on 04-28-2024 TSH 1.030 uIU/mL Normal 0.300-4.200 [facility] Comment on above: Performed By: #### L 501.9520, L500.3400 ####[facility] [address] [place], [address] Total proteinOrdered By: Aura Wright on 04-28-2024 Protein [Mass/Vol] 5.1 g/dL Low 5.9-8.4 [facility] Urinalysis, Completeon 04-28 RBC 0 SEEN Normal 0-5 [facility] Comment on above: Order Comment: YOSVANY TER SPECIMEN Performed By: #### L 400.0001 ####[facility] [address] [place], [address] Absolute lymphocyte countOrd ered By: Harishlali Baxter on 04-27-2024 Lymphocytes Auto (Unsp spec) [#/Vol] 1.59 10*3/uL 0.83-4.51 [facility] Absolute neutrophil countOrd ered By: Harish Baxter on 04-27-2024 Neutrophils (Bld) [#/Vol] 8.8 10*3/uL High 2.0-7.7 [facility] Anion gap in Serum or Plasma Ordered By: Harish Baxter on 04-27-2024 Anion gap [Moles/Vol] 12 mmol/L 5-15 [facility] Automated lymphocyte count a s percentage of total leukocytesOrdered By: Harish Baxter on 04-27-2024 Lymphocytes/100 WBC Auto (Unsp spec) 14.3 % Low 19-41 [facility] BUN/creatinine ratioOrdered By: Harish Baxter on 04-27-2024 Urea nitrogen/Creatinine [Mass ratio] 21.3 mg/mg High 10- [facility] Basic Metabolic Profile (BMP )on 04-27-2024 BUN/CRE 21.3 RATIO High 10- [facility] Comment on above: Performed By: #### L 500.2500 ####[facility] [address] [place], [address] Calcium [Mass/Vol] 8.2 mg/dL Normal 7.6-11.0 [facility] Comment on above: Performed By: #### L 500.2500 ####[facility] [address] [place], [address] Chloride [Moles/Vol] 103 mmol/L Normal 98-108 [facility] Comment on above: Performed By: #### L 500.2500 ####[facility] [address] [place], [address] CO2 [Moles/Vol] 20.1 mmol/L Low 21.0-32.0 [facility] Comment on above: Performed By: #### L 500.2500 ####[facility] [address] [place], [address] Creatinine [Mass/Vol] 0.91 mg/dL Normal 0.70-1.20 [facility] Comment on above: Performed By: #### L 500.2500 ####[facility] [address] [place], [address] ECRCL 60.55 ml/min Normal 50-250 [facility] Comment on above: Performed By: #### L 500.2500 ####[facility] [address] [place], [address] GAP 12 Normal 5-15 [facility] Comment on above: Performed By: #### L 500.2500 ####[facility] [address] [place], [address] GFR/1.73 sq M.predicted among non-blacks MDRD (S/P/Bld) [Vol rate/Area] 84 mL/min/{1.73_m2} Normal >60 [facility] Comment on above: Result Comment: mL/m in/1.73m2 CKD-EPI Creatinine Equation (2020) Performed By: #### L 500.2500 ####[facility] [address] [place], [address] Glucose [Mass/Vol] 123 mg/dL High 70-99 [facility] Comment on above: Performed By: #### L 500.2500 ####[facility] [address] [place], [address] Potassium [Moles/Vol] 4.6 mmol/L Normal 3.3-5.1 [facility] Comment on above: Performed By: #### L 500.2500 ####[facility] [address] [place], [address] Sodium [Moles/Vol] 136 mmol/L Normal 133-145 [facility] Comment on above: Performed By: #### L 500.2500 ####[facility] [address] [place], [address] Urea nitrogen [Mass/Vol] 19 mg/dL Normal 4-19 [facility] Comment on above: Performed By: #### L 500.2500 ####[facility] [address] [place], [address] BUN Normal 4-19 [facility] Comment on above: Result Comment: Canc elled via OM: MD Ordered Performed By: #### L 100.0500, L500.2500 ####[facility] [address] [place], [address] BUN/CRE Normal 10-20 [facility] Comment on above: Result Comment: Canc elled via OM: MD Ordered Performed By: #### L 100.0500, L500.2500 ####[facility] [address] [place], [address] Calcium Normal 7.6-11.0 [facility] Comment on above: Result Comment: Canc elled via OM: MD Ordered Performed By: #### L 100.0500, L500.2500 ####[facility] [address] [place], [address] CL Normal 98-108 [facility] Comment on above: Result Comment: Canc elled via OM: MD Ordered Performed By: #### L 100.0500, L500.2500 ####[facility] [address] [place], [address] CO2 Normal 21.0-32.0 [facility] Comment on above: Result Comment: Canc elled via OM: MD Ordered Performed By: #### L 100.0500, L500.2500 ####[facility] [address] [place], [address] CREAT,SERUM Normal 0.70-1.20 [facility] Comment on above: Result Comment: Canc elled via OM: MD Ordered Performed By: #### L 100.0500, L500.2500 ####[facility] [address] [place], [address] eGFR Normal >60 [facility] Comment on above: Result Comment: Canc elled via OM: MD Ordered Performed By: #### L 100.0500, L500.2500 ####[facility] [address] [place], [address] GAP Normal 5-15 [facility] Comment on above: Result Comment: Canc elled via OM: MD Ordered Performed By: #### L 100.0500, L500.2500 ####[facility] [address] [place], [address] GLU Normal 70-99 [facility] Comment on above: Result Comment: Canc elled via OM: MD Ordered Performed By: #### L 100.0500, L500.2500 ####[facility] [address] [place], [address] Potassium Normal 3.3-5.1 [facility] Comment on above: Result Comment: Canc elled via OM: MD Ordered Performed By: #### L 100.0500, L500.2500 ####[facility] [address] [place], [address] Basic Metabolic Profile (BMP) Normal 133-145 [facility] Comment on above: Result Comment: Canc elled via OM: MD Ordered Performed By: #### L 100.0500, L500.2500 ####[facility] [address] [place], [address] Basophil percentageOrdered B y: Harish Baxter on 04-27-2024 Basophils/100 WBC (Bld) 0.2 % 0-1 [facility] CBC W/Diff, Automatedon 04-09 0 Absolute Lymph 1.59 X10 3/uL Normal 0.83-4.51 [facility] Comment on above: Performed By: #### L 100.0100 ####[facility] [address] [place], [address] Absolute Neut 8.8 X10 3/uL High 2.0-7.7 [facility] Comment on above: Performed By: #### L 100.0100 ####[facility] [address] [place], [address] Basophils/100 WBC (Bld) 0.2 % Normal 0-1 [facility] Comment on above: Performed By: #### L 100.0100 ####[facility] [address] [place], [address] Eosinophils/100 WBC (Bld) 0.0 % Normal 0-5 [facility] Comment on above: Performed By: #### L 100.0100 ####[facility] [address] [place], [address] Erythrocyte distribution width (RBC) [Ratio] 12.3 % Normal 11.6-14.6 [facility] Comment on above: Performed By: #### L 100.0100 ####[facility] [address] [place], [address] Hematocrit (Bld) [Volume fraction] 37.9 % Low 40-54 [facility] Comment on above: Performed By: #### L 100.0100 ####[facility] [address] [place], [address] Hemoglobin (Bld) [Mass/Vol] 13.0 g/dL Normal 13.0-16.5 [facility] Comment on above: Performed By: #### L 100.0100 ####[facility] [address] [place], [address] IG% 0.900 Normal 0.0-0.9 [facility] Comment on above: Result Comment: IG% - Immature Granulocytes (promyelocytes, myelocytes andmetamyelocytes) > 1% indicates that a LEFT SHIFT is Present. Performed By: #### L 100.0100 ####[facility] [address] [place], [address] Lymphocytes/100 WBC (Bld) 14.3 % Low 19-41 [facility] Comment on above: Performed By: #### L 100.0100 ####[facility] [address] [place], [address] MCH (RBC) [Entitic mass] 30.0 pg Normal 27.0-32.0 [facility] Comment on above: Performed By: #### L 100.0100 ####[facility] [address] [place], [address] MCHC (RBC) [Mass/Vol] 34.3 g/dL Normal 32-36 [facility] Comment on above: Performed By: #### L 100.0100 ####[facility] [address] [place], [address] MCV (RBC) [Entitic vol] 87.5 fL Normal 80-94 [facility] Comment on above: Performed By: #### L 100.0100 ####[facility] [address] [place], [address] Monocytes/100 WBC (Bld) 5.8 % Normal 0-10 [facility] Comment on above: Performed By: #### L 100.0100 ####[facility] [address] [place], [address] Neutrophils/100 WBC (Bld) 78.8 % High 47-70 [facility] Comment on above: Performed By: #### L 100.0100 ####[facility] [address] [place], [address] Nucleated RBC (Bld) [#/Vol] 0 10*3/uL Normal 0-5 [facility] Comment on above: Performed By: #### L 100.0100 ####[facility] [address] [place], [address] Platelet mean volume (Bld) [Entitic vol] 8.6 fL Normal 6.2-12.0 [facility] Comment on above: Performed By: #### L 100.0100 ####[facility] [address] [place], [address] Platelets (Bld) [#/Vol] 178 10*3/uL Normal 150-450 [facility] Comment on above: Performed By: #### L 100.0100 ####[facility] [address] [place], [address] RBC (Bld) [#/Vol] 4.33 10*6/uL Low 4.6-6.2 [facility] Comment on above: Performed By: #### L 100.0100 ####[facility] [address] [place], [address] RDW SD 39.6 fl Normal 35.1-43.9 [facility] Comment on above: Performed By: #### L 100.0100 ####[facility] [address] [place], [address] WBC (Bld) [#/Vol] 11.1 10*3/uL High 4.4-11.0 [facility] Comment on above: Performed By: #### L 100.0100 ####[facility] [address] [place], [address] CBC-Complete Blood Cnt No Di ffon 04-27-2024 HCT Normal 40-54 [facility] Comment on above: Result Comment: Canc elled via OM: MD Ordered Performed By: #### L 100.0500, L500.2500 ####[facility] [address] [place], [address] HGB Normal 13.0-16.5 [facility] Comment on above: Result Comment: Canc elled via OM: MD Ordered Performed By: #### L 100.0500, L500.2500 ####[facility] [address] [place], [address] MCH Normal 27.0-32.0 [facility] Comment on above: Result Comment: Canc elled via OM: MD Ordered Performed By: #### L 100.0500, L500.2500 ####[facility] [address] [place], [address] MCHC Normal 32-36 [facility] Comment on above: Result Comment: Canc elled via OM: MD Ordered Performed By: #### L 100.0500, L500.2500 ####[facility] [address] [place], [address] MCV Normal 80-94 [facility] Comment on above: Result Comment: Canc elled via OM: MD Ordered Performed By: #### L 100.0500, L500.2500 ####[facility] [address] [place], [address] PLT Normal 150-450 [facility] Comment on above: Result Comment: Canc elled via OM: MD Ordered Performed By: #### L 100.0500, L500.2500 ####[facility] [address] [place], [address] RBC Normal 4.6-6.2 [facility] Comment on above: Result Comment: Canc elled via OM: MD Ordered Performed By: #### L 100.0500, L500.2500 ####[facility] [address] [place], [address] RDW CV Normal 11.6-14.6 [facility] Comment on above: Result Comment: Canc elled via OM: MD Ordered Performed By: #### L 100.0500, L500.2500 ####[facility] [address] [place], [address] RDW SD Normal 35.1-43.9 [facility] Comment on above: Result Comment: Canc elled via OM: MD Ordered Performed By: #### L 100.0500, L500.2500 ####[facility] [address] [place], [address] WBC Normal 4.4-11.0 [facility] Comment on above: Result Comment: Canc elled via OM: MD Ordered Performed By: #### L 100.0500, L500.2500 ####[facility] [address] [place], [address] Carbon dioxide, total [Moles /volume] in Central venous bloodOrdered By: Harish Baxter on 04-27-2024 CO2 [Moles/Vol] 20.1 mmol/L Low 21.0-32.0 [facility] Cerv Spine 2 or 3 Viewson Cerv Spine 2 or 3 Views Normal [facility] Chloride assayOrdered By: Carmela Baxter on 04-27-2024 Chloride [Moles/Vol] 103 mmol/L 98-108 [facility] Discharge Instructionon 04-09 Discharge Instruction Normal [facility] Eosinophil percentageOrdered By: Harish Baxter on 04-27-2024 Eosinophils/100 WBC (Bld) 0.0 % 0-5 [facility] Erythrocyte distribution wid th ratioOrdered By: Harish Baxter on 04-27-2024 Erythrocyte distribution width (RBC) [Ratio] 12.3 % 11.6-14.6 [facility] Erythrocyte distribution wid th standard deviationOrdered By: Harish Baxter on 04-27-2024 Erythrocyte distribution width (RBC) [Entitic vol] 39.6 fL 35.1-43.9 [facility] Erythrocyte distribution width (RBC) [Ratio] 39.6 fl 35.1-43.9 [facility] Estimation of creatinine yahir aranceOrdered By: Harish Baxter on 04-27-2024 Estimated Creatinine Clearance Calc 60.55 ml/min 50-250 [facility] GFR/1.73 sq M.predicted darrick g non-blacks MDRD (S/P/Bld) [Vol rate/Area]Ordered By: Harish Baxter on 04-27-2024 Estimated GFR (MDRD) Non-Af Amer 84 >60 [facility] Comment on above: mL/min/1.73m2 CKD-EP I Creatinine Equation (2020) Glomerular filtration rate ( GFR) estimation/1.73 sq m using serum, plasma, or whole bOrdered By: Harish Baxter on 04-27-2024 GFR/1.73 sq M.predicted among non-blacks MDRD (S/P/Bld) [Vol rate/Area] 84 mL/min/{1.73_m2} >60 [facility] Hematocrit Auto (Bld) [Volum e fraction]Ordered By: Harish Baxter on 04-27-2024 Hematocrit (Bld) [Volume fraction] 37.9 % Low 40-54 [facility] Hemoglobin measurementOrdere d By: Harish Baxter on 04-27-2024 Hemoglobin (Bld) [Mass/Vol] 13.0 g/dL 13.0-16.5 [facility] Immature granulocytes/100 WB C Auto (Bld)Ordered By: Harish Baxter on 04-27-2024 Immature granulocytes/100 WBC (Bld) 0.900 % 0.0-0.9 [facility] Comment on above: IG% - Immature Granu locytes (promyelocytes, myelocytes and metamyelocytes) > 1% indicates that a LEFT SHIFT is Present. Lymphocytes Auto (Unsp spec) [#/Vol]Ordered By: Harish Baxter on 04-27-2024 Lymphocytes (Bld) [#/Vol] 1.59 10*3/uL 0.83-4.51 [facility] Lymphocytes/100 WBC Auto (Un sp spec)Ordered By: Harish Baxter on 04-27-2024 Lymphocytes/100 WBC (Bld) 14.3 % Low 19-41 [facility] MCV (mean corpuscular volume ) determinationOrdered By: Harish Baxter on 04-27-2024 MCV (RBC) [Entitic vol] 87.5 fL 80-94 [facility] Mean corpuscular hemoglobin (MCH) determinationOrdered By: Harish Baxter on 04-27-2024 MCH (RBC) [Entitic mass] 30.0 pg 27.0-32.0 [facility] Mean corpuscular hemoglobin concentration (MCHC) determinationOrdered By: Harish Baxter on 04-27-2024 MCHC (RBC) [Mass/Vol] 34.3 g/dL 32-36 [facility] Mean platelet volume determi nationOrdered By: Harish Baxter on 04-27-2024 Platelet mean volume (Bld) [Entitic vol] 8.6 fL 6.2-12.0 [facility] Monocyte percentageOrdered B y: Harish Baxter on 04-27-2024 Monocytes/100 WBC (Bld) 5.8 % 0-10 [facility] Neutrophil percentageOrdered By: Harish Baxter on 04-27-2024 Neutrophils/100 WBC (Bld) 78.8 % High 47-70 [facility] Nucleated red blood cell per centageOrdered By: Harish Baxter on 04-27-2024 Nucleated RBC/100 WBC (Bld) [Ratio] 0 % 0-5 [facility] Platelet countOrdered By: Carmela Baxter on 04-27-2024 Platelets (Bld) [#/Vol] 178 10*3/uL 150-450 [facility] Potassium (Unsp spec) [Mass/ Vol]Ordered By: Harish Baxter on 04-27-2024 Potassium [Moles/Vol] 4.6 mmol/L 3.3-5.1 [facility] Potassium measurement (mass/ volume)Ordered By: Harish Baxter on 04-27-2024 Potassium (Unsp spec) [Mass/Vol] 4.6 mmol/L 3.3-5.1 [facility] RBC Auto (Bld) [#/Vol]Ordere d By: Harish Baxter on 04-27-2024 RBC (Bld) [#/Vol] 4.33 10*6/uL Low 4.6-6.2 [facility] Serum creatinine measurement (mass/volume)Ordered By: Harish Baxter on 04-27-2024 Creatinine [Mass/Vol] 0.91 mg/dL 0.70-1.20 [facility] Serum glucose measurement (m ass/volume)Ordered By: Harish Baxter on 04-27-2024 Glucose [Mass/Vol] 123 mg/dL High 70-99 [facility] Serum or plasma calcium ratna urement (mass/volume)Ordered By: Harish Baxter on 04-27-2024 Calcium [Mass/Vol] 8.2 mg/dL 7.6-11.0 [facility] Serum or plasma urea nitroge n measurement (mass/volume)Ordered By: Harish Baxter on 04-27-2024 Urea nitrogen [Mass/Vol] 19 mg/dL 4-19 [facility] Sodium levelOrdered By: Jade Baxter on 04-27-2024 Sodium [Moles/Vol] 136 mmol/L 133-145 [facility] Urine cultureOrdered By: Aura Wright on 04-27-2024 Bacteria identified Cx Nom (U) Culture exhibits no growth. [facility] White blood cell (WBC) count Ordered By: Harish Baxter on 04-27-2024 WBC (Bld) [#/Vol] 11.1 10*3/uL High 4.4-11.0 [facility] Basic Metabolic Profile (BMP )on 04-26-2024 BUN/CRE 23.4 RATIO High 10- [facility] Comment on above: Performed By: #### L 500.2500, L100.0100 ####[facility] [address] [place], [address] Calcium [Mass/Vol] 8.2 mg/dL Normal 7.6-11.0 [facility] Comment on above: Performed By: #### L 500.2500, L100.0100 ####[facility] [address] [place], [address] Chloride [Moles/Vol] 107 mmol/L Normal 98-108 [facility] Comment on above: Performed By: #### L 500.2500, L100.0100 ####[facility] [address] [place], [address] CO2 [Moles/Vol] 22.8 mmol/L Normal 21.0-32.0 [facility] Comment on above: Performed By: #### L 500.2500, L100.0100 ####[facility] [address] [place], [address] Creatinine [Mass/Vol] 0.83 mg/dL Normal 0.70-1.20 [facility] Comment on above: Performed By: #### L 500.2500, L100.0100 ####[facility] [address] [place], [address] ECRCL 66.39 ml/min Normal 50-250 [facility] Comment on above: Performed By: #### L 500.2500, L100.0100 ####[facility] [address] [place], [address] GAP 6 Normal 5-15 [facility] Comment on above: Performed By: #### L 500.2500, L100.0100 ####[facility] [address] [place], [address] GFR/1.73 sq M.predicted among non-blacks MDRD (S/P/Bld) [Vol rate/Area] 87 mL/min/{1.73_m2} Normal >60 [facility] Comment on above: Result Comment: mL/m in/1.73m2 CKD-EPI Creatinine Equation (2020) Performed By: #### L 500.2500, L100.0100 ####[facility] [address] [place], [address] Glucose [Mass/Vol] 91 mg/dL Normal 70-99 [facility] Comment on above: Performed By: #### L 500.2500, L100.0100 ####[facility] [address] [place], [address] Potassium [Moles/Vol] 4.5 mmol/L Normal 3.3-5.1 [facility] Comment on above: Performed By: #### L 500.2500, L100.0100 ####[facility] [address] [place], [address] Sodium [Moles/Vol] 136 mmol/L Normal 133-145 [facility] Comment on above: Performed By: #### L 500.2500, L100.0100 ####[facility] [address] [place], [address] Urea nitrogen [Mass/Vol] 20 mg/dL High 4-19 [facility] Comment on above: Performed By: #### L 500.2500, L100.0100 ####[facility] [address] [place], [address] CBC W/Diff, Automatedon 04-08 Absolute Lymph 2.30 X10 3/uL Normal 0.83-4.51 [facility] Comment on above: Performed By: #### L 500.2500, L100.0100 ####[facility] [address] [place], [address] Absolute Neut 5.4 X10 3/uL Normal 2.0-7.7 [facility] Comment on above: Performed By: #### L 500.2500, L100.0100 ####[facility] [address] [place], [address] Basophils/100 WBC (Bld) 0.1 % Normal 0-1 [facility] Comment on above: Performed By: #### L 500.2500, L100.0100 ####[facility] [address] [place], [address] Eosinophils/100 WBC (Bld) 2.2 % Normal 0-5 [facility] Comment on above: Performed By: #### L 500.2500, L100.0100 ####[facility] [address] [place], [address] Erythrocyte distribution width (RBC) [Ratio] 12.5 % Normal 11.6-14.6 [facility] Comment on above: Performed By: #### L 500.2500, L100.0100 ####[facility] [address] [place], [address] Hematocrit (Bld) [Volume fraction] 38.8 % Low 40-54 [facility] Comment on above: Performed By: #### L 500.2500, L100.0100 ####[facility] [address] [place], [address] Hemoglobin (Bld) [Mass/Vol] 13.3 g/dL Normal 13.0-16.5 [facility] Comment on above: Performed By: #### L 500.2500, L100.0100 ####[facility] [address] [place], [address] IG% 0.700 Normal 0.0-0.9 [facility] Comment on above: Result Comment: IG% - Immature Granulocytes (promyelocytes, myelocytes andmetamyelocytes) > 1% indicates that a LEFT SHIFT is Present. Performed By: #### L 500.2500, L100.0100 ####[facility] [address] [place], [address] Lymphocytes/100 WBC (Bld) 26.4 % Normal 19-41 [facility] Comment on above: Performed By: #### L 500.2500, L100.0100 ####[facility] [address] [place], [address] MCH (RBC) [Entitic mass] 29.8 pg Normal 27.0-32.0 [facility] Comment on above: Performed By: #### L 500.2500, L100.0100 ####[facility] [address] [place], [address] MCHC (RBC) [Mass/Vol] 34.3 g/dL Normal 32-36 [facility] Comment on above: Performed By: #### L 500.2500, L100.0100 ####[facility] [address] [place], [address] MCV (RBC) [Entitic vol] 87.0 fL Normal 80-94 [facility] Comment on above: Performed By: #### L 500.2500, L100.0100 ####[facility] [address] [place], [address] Monocytes/100 WBC (Bld) 8.2 % Normal 0-10 [facility] Comment on above: Performed By: #### L 500.2500, L100.0100 ####[facility] [address] [place], [address] Neutrophils/100 WBC (Bld) 62.4 % Normal 47-70 [facility] Comment on above: Performed By: #### L 500.2500, L100.0100 ####[facility] [address] [place], [address] Nucleated RBC (Bld) [#/Vol] 0 10*3/uL Normal 0-5 [facility] Comment on above: Performed By: #### L 500.2500, L100.0100 ####[facility] [address] [place], [address] Platelet mean volume (Bld) [Entitic vol] 8.5 fL Normal 6.2-12.0 [facility] Comment on above: Performed By: #### L 500.2500, L100.0100 ####[facility] [address] [place], [address] Platelets (Bld) [#/Vol] 168 10*3/uL Normal 150-450 [facility] Comment on above: Performed By: #### L 500.2500, L100.0100 ####[facility] [address] [place], [address] RBC (Bld) [#/Vol] 4.46 10*6/uL Low 4.6-6.2 [facility] Comment on above: Performed By: #### L 500.2500, L100.0100 ####[facility] [address] [place], [address] RDW SD 39.8 fl Normal 35.1-43.9 [facility] Comment on above: Performed By: #### L 500.2500, L100.0100 ####[facility] [address] [place], [address] WBC (Bld) [#/Vol] 8.7 10*3/uL Normal 4.4-11.0 [facility] Comment on above: Performed By: #### L 500.2500, L100.0100 ####[facility] [address] [place], [address] Cerv Spine 2 or 3 Viewson Cerv Spine 2 or 3 Views Normal [facility] HH, Hemoglobin AND Hematocri ton 04-26-2024 Hematocrit (Bld) [Volume fraction] 37.7 % Low 40-54 [facility] Comment on above: Performed By: #### L 100.0600 ####[facility] [address] [place], [address] Hemoglobin (Bld) [Mass/Vol] 12.8 g/dL Low 13.0-16.5 [facility] Comment on above: Performed By: #### L 100.0600 ####[facility] [address] [place], [address] MR/POSTOP.ANEon 04-26-2024 MR/POSTOP.ANE Normal [facility] MR/POSTOP.ANE Normal [facility] MR/BPFLLGIF6ga 04-26-2024 MR/POSTOPAN2 Normal [facility] O.R. Fluoro for C-Cr 04-08 O.R. Fluoro for C-Arm Normal [facility] Operative Reporton Operative Report Normal [facility] Basic Metabolic Profile (BMP )on 04-25-2024 BUN/CRE 26.7 RATIO High 10-20 [facility] Comment on above: Performed By: #### L 500.2500, L100.0100 ####[facility] [address] [place], [address] Calcium [Mass/Vol] 8.5 mg/dL Normal 7.6-11.0 [facility] Comment on above: Performed By: #### L 500.2500, L100.0100 ####[facility] [address] [place], [address] Chloride [Moles/Vol] 103 mmol/L Normal 98-108 [facility] Comment on above: Performed By: #### L 500.2500, L100.0100 ####[facility] [address] [place], [address] CO2 [Moles/Vol] 24.3 mmol/L Normal 21.0-32.0 [facility] Comment on above: Performed By: #### L 500.2500, L100.0100 ####[facility] [address] [place], [address] Creatinine [Mass/Vol] 0.90 mg/dL Normal 0.70-1.20 [facility] Comment on above: Performed By: #### L 500.2500, L100.0100 ####[facility] [address] [place], [address] ECRCL 61.22 ml/min Normal 50-250 [facility] Comment on above: Performed By: #### L 500.2500, L100.0100 ####[facility] [address] [place], [address] GAP 10 Normal 5-15 [facility] Comment on above: Performed By: #### L 500.2500, L100.0100 ####[facility] [address] [place], [address] GFR/1.73 sq M.predicted among non-blacks MDRD (S/P/Bld) [Vol rate/Area] 85 mL/min/{1.73_m2} Normal >60 [facility] Comment on above: Result Comment: mL/m in/1.73m2 CKD-EPI Creatinine Equation (2020) Performed By: #### L 500.2500, L100.0100 ####[facility] [address] [place], [address] Glucose [Mass/Vol] 90 mg/dL Normal 70-99 [facility] Comment on above: Performed By: #### L 500.2500, L100.0100 ####[facility] [address] [place], [address] Potassium [Moles/Vol] 4.2 mmol/L Normal 3.3-5.1 [facility] Comment on above: Performed By: #### L 500.2500, L100.0100 ####[facility] [address] [place], [address] Sodium [Moles/Vol] 138 mmol/L Normal 133-145 [facility] Comment on above: Performed By: #### L 500.2500, L100.0100 ####[facility] [address] [place], [address] Urea nitrogen [Mass/Vol] 24 mg/dL High 4-19 [facility] Comment on above: Performed By: #### L 500.2500, L100.0100 ####[facility] [address] [place], [address] CBC W/Diff, Automatedon 03- Absolute Lymph 2.98 X10 3/uL Normal 0.83-4.51 [facility] Comment on above: Performed By: #### L 500.2500, L100.0100 ####[facility] [address] [place], [address] Absolute Neut 6.0 X10 3/uL Normal 2.0-7.7 [facility] Comment on above: Performed By: #### L 500.2500, L100.0100 ####[facility] [address] [place], [address] Basophils/100 WBC (Bld) 0.1 % Normal 0-1 [facility] Comment on above: Performed By: #### L 500.2500, L100.0100 ####[facility] [address] [place], [address] Eosinophils/100 WBC (Bld) 1.3 % Normal 0-5 [facility] Comment on above: Performed By: #### L 500.2500, L100.0100 ####[facility] [address] [place], [address] Erythrocyte distribution width (RBC) [Ratio] 12.5 % Normal 11.6-14.6 [facility] Comment on above: Performed By: #### L 500.2500, L100.0100 ####[facility] [address] [place], [address] Hematocrit (Bld) [Volume fraction] 38.8 % Low 40-54 [facility] Comment on above: Performed By: #### L 500.2500, L100.0100 ####[facility] [address] [place], [address] Hemoglobin (Bld) [Mass/Vol] 13.5 g/dL Normal 13.0-16.5 [facility] Comment on above: Performed By: #### L 500.2500, L100.0100 ####[facility] [address] [place], [address] IG% 0.700 Normal 0.0-0.9 [facility] Comment on above: Result Comment: IG% - Immature Granulocytes (promyelocytes, myelocytes andmetamyelocytes) > 1% indicates that a LEFT SHIFT is Present. Performed By: #### L 500.2500, L100.0100 ####[facility] [address] [place], [address] Lymphocytes/100 WBC (Bld) 30.0 % Normal 19-41 [facility] Comment on above: Performed By: #### L 500.2500, L100.0100 ####[facility] [address] [place], [address] MCH (RBC) [Entitic mass] 29.9 pg Normal 27.0-32.0 [facility] Comment on above: Performed By: #### L 500.2500, L100.0100 ####[facility] [address] [place], [address] MCHC (RBC) [Mass/Vol] 34.8 g/dL Normal 32-36 [facility] Comment on above: Performed By: #### L 500.2500, L100.0100 ####[facility] [address] [place], [address] MCV (RBC) [Entitic vol] 86.0 fL Normal 80-94 [facility] Comment on above: Performed By: #### L 500.2500, L100.0100 ####[facility] [address] [place], [address] Monocytes/100 WBC (Bld) 7.5 % Normal 0-10 [facility] Comment on above: Performed By: #### L 500.2500, L100.0100 ####[facility] [address] [place], [address] Neutrophils/100 WBC (Bld) 60.4 % Normal 47-70 [facility] Comment on above: Performed By: #### L 500.2500, L100.0100 ####[facility] [address] [place], [address] Nucleated RBC (Bld) [#/Vol] 0 10*3/uL Normal 0-5 [facility] Comment on above: Performed By: #### L 500.2500, L100.0100 ####[facility] [address] [place], [address] Platelet mean volume (Bld) [Entitic vol] 8.5 fL Normal 6.2-12.0 [facility] Comment on above: Performed By: #### L 500.2500, L100.0100 ####[facility] [address] [place], [address] Platelets (Bld) [#/Vol] 186 10*3/uL Normal 150-450 [facility] Comment on above: Performed By: #### L 500.2500, L100.0100 ####[facility] [address] [place], [address] RBC (Bld) [#/Vol] 4.51 10*6/uL Low 4.6-6.2 [facility] Comment on above: Performed By: #### L 500.2500, L100.0100 ####[facility] [address] [place], [address] RDW SD 39.1 fl Normal 35.1-43.9 [facility] Comment on above: Performed By: #### L 500.2500, L100.0100 ####[facility] [address] [place], [address] WBC (Bld) [#/Vol] 9.9 10*3/uL Normal 4.4-11.0 [facility] Comment on above: Performed By: #### L 500.2500, L100.0100 ####[facility] [address] [place], [address] 12 Lead EKGon 04-24-2024 12 Lead EKG Normal [facility] Basic Metabolic Profile (BMP )on 04-24-2024 BUN/CRE 25.3 RATIO High 10-20 [facility] Comment on above: Order Comment: pre-o p Performed By: #### L 500.2500, L100.0100 ####[facility] [address] [place], [address] Calcium [Mass/Vol] 8.7 mg/dL Normal 7.6-11.0 [facility] Comment on above: Order Comment: pre-o p Performed By: #### L 500.2500, L100.0100 ####[facility] [address] [place], [address] Chloride [Moles/Vol] 103 mmol/L Normal 98-108 [facility] Comment on above: Order Comment: pre-o p Performed By: #### L 500.2500, L100.0100 ####[facility] [address] [place], [address] CO2 [Moles/Vol] 26.7 mmol/L Normal 21.0-32.0 [facility] Comment on above: Order Comment: pre-o p Performed By: #### L 500.2500, L100.0100 ####[facility] [address] [place], [address] Creatinine [Mass/Vol] 0.97 mg/dL Normal 0.70-1.20 [facility] Comment on above: Order Comment: pre-o p Performed By: #### L 500.2500, L100.0100 ####[facility] [address] [place], [address] ECRCL 56.80 ml/min Normal 50-250 [facility] Comment on above: Order Comment: pre-o p Performed By: #### L 500.2500, L100.0100 ####[facility] [address] [place], [address] GAP 8 Normal 5-15 [facility] Comment on above: Order Comment: pre-o p Performed By: #### L 500.2500, L100.0100 ####[facility] [address] [place], [address] GFR/1.73 sq M.predicted among non-blacks MDRD (S/P/Bld) [Vol rate/Area] 78 mL/min/{1.73_m2} Normal >60 [facility] Comment on above: Order Comment: pre-o p Result Comment: mL/m in/1.73m2 CKD-EPI Creatinine Equation (2020) Performed By: #### L 500.2500, L100.0100 ####[facility] [address] [place], [address] Glucose [Mass/Vol] 94 mg/dL Normal 70-99 [facility] Comment on above: Order Comment: pre-o p Performed By: #### L 500.2500, L100.0100 ####[facility] [address] [place], [address] Potassium [Moles/Vol] 4.2 mmol/L Normal 3.3-5.1 [facility] Comment on above: Order Comment: pre-o p Performed By: #### L 500.2500, L100.0100 ####[facility] [address] [place], [address] Sodium [Moles/Vol] 138 mmol/L Normal 133-145 [facility] Comment on above: Order Comment: pre-o p Performed By: #### L 500.2500, L100.0100 ####[facility] [address] [place], [address] Urea nitrogen [Mass/Vol] 25 mg/dL High 4-19 [facility] Comment on above: Order Comment: pre-o p Performed By: #### L 500.2500, L100.0100 ####[facility] [address] [place], [address] CBC W/Diff, Automatedon 04-08 Absolute Lymph 3.18 X10 3/uL Normal 0.83-4.51 [facility] Comment on above: Order Comment: Comme nts: pre-op Performed By: #### L 500.2500, L100.0100 ####[facility] [address] [place], [address] Absolute Neut 6.3 X10 3/uL Normal 2.0-7.7 [facility] Comment on above: Order Comment: Comme nts: pre-op Performed By: #### L 500.2500, L100.0100 ####[facility] [address] [place], [address] Basophils/100 WBC (Bld) 0.1 % Normal 0-1 [facility] Comment on above: Order Comment: Comme nts: pre-op Performed By: #### L 500.2500, L100.0100 ####[facility] [address] [place], [address] Eosinophils/100 WBC (Bld) 0.7 % Normal 0-5 [facility] Comment on above: Order Comment: Comme nts: pre-op Performed By: #### L 500.2500, L100.0100 ####[facility] [address] [place], [address] Erythrocyte distribution width (RBC) [Ratio] 12.3 % Normal 11.6-14.6 [facility] Comment on above: Order Comment: Comme nts: pre-op Performed By: #### L 500.2500, L100.0100 ####[facility] [address] [place], [address] Hematocrit (Bld) [Volume fraction] 39.7 % Low 40-54 [facility] Comment on above: Order Comment: Comme nts: pre-op Performed By: #### L 500.2500, L100.0100 ####[facility] [address] [place], [address] Hemoglobin (Bld) [Mass/Vol] 13.6 g/dL Normal 13.0-16.5 [facility] Comment on above: Order Comment: Comme nts: pre-op Performed By: #### L 500.2500, L100.0100 ####[facility] [address] [place], [address] IG% 0.500 Normal 0.0-0.9 [facility] Comment on above: Order Comment: Comme nts: pre-op Result Comment: IG% - Immature Granulocytes (promyelocytes, myelocytes andmetamyelocytes) > 1% indicates that a LEFT SHIFT is Present. Performed By: #### L 500.2500, L100.0100 ####[facility] [address] [place], [address] Lymphocytes/100 WBC (Bld) 30.5 % Normal 19-41 [facility] Comment on above: Order Comment: Comme nts: pre-op Performed By: #### L 500.2500, L100.0100 ####[facility] [address] [place], [address] MCH (RBC) [Entitic mass] 29.8 pg Normal 27.0-32.0 [facility] Comment on above: Order Comment: Comme nts: pre-op Performed By: #### L 500.2500, L100.0100 ####[facility] [address] [place], [address] MCHC (RBC) [Mass/Vol] 34.3 g/dL Normal 32-36 [facility] Comment on above: Order Comment: Comme nts: pre-op Performed By: #### L 500.2500, L100.0100 ####[facility] [address] [place], [address] MCV (RBC) [Entitic vol] 87.1 fL Normal 80-94 [facility] Comment on above: Order Comment: Comme nts: pre-op Performed By: #### L 500.2500, L100.0100 ####[facility] [address] [place], [address] Monocytes/100 WBC (Bld) 7.9 % Normal 0-10 [facility] Comment on above: Order Comment: Comme nts: pre-op Performed By: #### L 500.2500, L100.0100 ####[facility] [address] [place], [address] Neutrophils/100 WBC (Bld) 60.3 % Normal 47-70 [facility] Comment on above: Order Comment: Comme nts: pre-op Performed By: #### L 500.2500, L100.0100 ####[facility] [address] [place], [address] Nucleated RBC (Bld) [#/Vol] 0 10*3/uL Normal 0-5 [facility] Comment on above: Order Comment: Comme nts: pre-op Performed By: #### L 500.2500, L100.0100 ####[facility] [address] [place], [address] Platelet mean volume (Bld) [Entitic vol] 8.5 fL Normal 6.2-12.0 [facility] Comment on above: Order Comment: Comme nts: pre-op Performed By: #### L 500.2500, L100.0100 ####[facility] [address] [place], [address] Platelets (Bld) [#/Vol] 199 10*3/uL Normal 150-450 [facility] Comment on above: Order Comment: Comme nts: pre-op Performed By: #### L 500.2500, L100.0100 ####[facility] [address] [place], [address] RBC (Bld) [#/Vol] 4.56 10*6/uL Low 4.6-6.2 [facility] Comment on above: Order Comment: Comme nts: pre-op Performed By: #### L 500.2500, L100.0100 ####[facility] [address] [place], [address] RDW SD 39.4 fl Normal 35.1-43.9 [facility] Comment on above: Order Comment: Comme nts: pre-op Performed By: #### L 500.2500, L100.0100 ####[facility] [address] [place], [address] WBC (Bld) [#/Vol] 10.4 10*3/uL Normal 4.4-11.0 [facility] Comment on above: Order Comment: Comme nts: pre-op Performed By: #### L 500.2500, L100.0100 ####[facility] [address] [place], [address] Electrocardiogram reportOrde red By: Danette Sargent on 04-24-2024 EKG study [facility] [address] [place] [address] 12 Lead EKG 04/19/24 1131 MR#: [id number] Acct: [id number] Name: YAS ROSA Rep #:[id number] : 1940 83 From: Danette cartagena MD Attending Dr: Dr. Harish Baxter MD Status: ADM IN Ordering Dr: Laureano Gallagher DO Date: 04/19/24 Location: U Sex: M C Admitted: 04/20/24 Test Reason : Blood Pressure : */* mmHG Vent. Rate : 69 BPM Atrial Rate : 69 BPM P-R Int : 126 ms QRS Dur : 82 ms QT Int : 426 ms P-R-T Axes : 54 -19 33 degrees QTcB Int : 456 ms Normal sinus rhythm Normal ECG Confirmed by ROSETTA CABELLO, KACEY ([id number]), managing editor LEANDER BRAY ([id number]) on04/24/2024 11:11:40 AM Referred By: KAYLAH Confirmed By: KACEY SARGENT MD 04/24/24 1111 Date _ Danette Sargent MD CC: Dr. Kwabena Menjivar MD; Dr. Laureano Gallagher DO; Dr. Harish Baxter MD ~ Signed [facility] Work Phone: Electrocardiogram reportOrde red By: David Granados on 04-24-2024 EKG study [facility] Services [address] [place] [address] 12 Lead EKG 04/24/24 0501 MR#: [id number] Acct: [id number] Name: YAS ROSA Rep #:[id number] : 1940 83 From: David Granados MD Attending Dr: Dr. Harish Baxter MD Status: ADM IN Ordering Dr: Krish Guevara MD Date: 04/24/24 Location: U Sex: M C Admitted: 04/20/24 Test Reason : AM EKG Blood Pressure : */* mmHG Vent. Rate : 50 BPM Atrial Rate : 50 BPM P-R Int : 128 ms QRS Dur : 84 ms QT Int : 452 ms P-R-T Axes : 20 -12 36 degrees QTcB Int : 412 ms Sinus bradycardia Otherwise normal ECG When compared with ECG of 19-Apr-2024 11:31, MANUAL COMPARISON REQUIRED DATA IS UNCONFIRMED Confirmed by DARWIN CABELLO, DAVID ([id number]), managing editor LEANDER BRAY ([id number]) on 59:54:30 AM Referred By: Confirmed By: DAVID GRANADOS MD 04/24/24 0954 Date _ David Granados MD CC: Dr. Krish Guevara MD; Dr. Kwabena Menjivar MD; Dr. Harish Baxter MD ~ Signed [facility] Work Phone: Consultation - Orthopedicson 04-21-2024 Consultation - Orthopedics Normal [facility] CBC W/Diff, Automatedon 04-08 Absolute Lymph 2.09 X10 3/uL Normal 0.83-4.51 [facility] Comment on above: Performed By: #### L 100.0100 ####[facility] [address] [place], [address] Absolute Neut 8.7 X10 3/uL High 2.0-7.7 [facility] Comment on above: Performed By: #### L 100.0100 ####[facility] [address] [place], [address] Basophils/100 WBC (Bld) 0.1 % Normal 0-1 [facility] Comment on above: Performed By: #### L 100.0100 ####[facility] [address] [place], [address] Eosinophils/100 WBC (Bld) 0.1 % Normal 0-5 [facility] Comment on above: Performed By: #### L 100.0100 ####[facility] [address] [place], [address] Erythrocyte distribution width (RBC) [Ratio] 12.7 % Normal 11.6-14.6 [facility] Comment on above: Performed By: #### L 100.0100 ####[facility] [address] [place], [address] Hematocrit (Bld) [Volume fraction] 38.5 % Low 40-54 [facility] Comment on above: Performed By: #### L 100.0100 ####[facility] [address] [place], [address] Hemoglobin (Bld) [Mass/Vol] 13.2 g/dL Normal 13.0-16.5 [facility] Comment on above: Performed By: #### L 100.0100 ####[facility] [address] [place], [address] IG% 0.300 Normal 0.0-0.9 [facility] Comment on above: Result Comment: IG% - Immature Granulocytes (promyelocytes, myelocytes andmetamyelocytes) > 1% indicates that a LEFT SHIFT is Present. Performed By: #### L 100.0100 ####[facility] [address] [place], [address] Lymphocytes/100 WBC (Bld) 17.6 % Low 19-41 [facility] Comment on above: Performed By: #### L 100.0100 ####[facility] [address] [place], [address] MCH (RBC) [Entitic mass] 29.5 pg Normal 27.0-32.0 [facility] Comment on above: Performed By: #### L 100.0100 ####[facility] [address] [place], [address] MCHC (RBC) [Mass/Vol] 34.3 g/dL Normal 32-36 [facility] Comment on above: Performed By: #### L 100.0100 ####[facility] [address] [place], [address] MCV (RBC) [Entitic vol] 86.1 fL Normal 80-94 [facility] Comment on above: Performed By: #### L 100.0100 ####[facility] [address] [place], [address] Monocytes/100 WBC (Bld) 8.4 % Normal 0-10 [facility] Comment on above: Performed By: #### L 100.0100 ####[facility] [address] [place], [address] Neutrophils/100 WBC (Bld) 73.5 % High 47-70 [facility] Comment on above: Performed By: #### L 100.0100 ####[facility] [address] [place], [address] Nucleated RBC (Bld) [#/Vol] 0 10*3/uL Normal 0-5 [facility] Comment on above: Performed By: #### L 100.0100 ####[facility] [address] [place], [address] Platelet mean volume (Bld) [Entitic vol] 8.9 fL Normal 6.2-12.0 [facility] Comment on above: Performed By: #### L 100.0100 ####[facility] [address] [place], [address] Platelets (Bld) [#/Vol] 216 10*3/uL Normal 150-450 [facility] Comment on above: Performed By: #### L 100.0100 ####[facility] [address] [place], [address] RBC (Bld) [#/Vol] 4.47 10*6/uL Low 4.6-6.2 [facility] Comment on above: Performed By: #### L 100.0100 ####[facility] [address] [place], [address] RDW SD 39.5 fl Normal 35.1-43.9 [facility] Comment on above: Performed By: #### L 100.0100 ####[facility] [address] [place], [address] WBC (Bld) [#/Vol] 11.9 10*3/uL High 4.4-11.0 [facility] Comment on above: Performed By: #### L 100.0100 ####[facility] [address] [place], [address] Echocardiogram study reportO rdered By: Danette Sargent on 04-20-2024 Study report [facility] Cardi[facility] Services [address] [place] [address] Echo Complete 04/19/24 1500 MR#: [id number] Acct: [id number] Name: YAS ROSA Rep #:[id number] : 1940 83 From: Danette cerrato MD Attending Dr: Dr. Keanu Alfred, Status: ADM IN Ordering Dr: Keanu Alfred DO Date: Location: U Sex: M C Admitted: 04/20/24 Reason For Study Reason For Study: SYNCOPE Procedure This was a 2D Doppler, Color Flow transthoracic echocardiogram. The study was technically difficult. PT was unable to lie still in left lateral decubitus position due to dizziness. Exam performed portable in patient room. Left Ventricle Normal LV size. The estimated ejection fraction is 70 %. No evidence for diastolic dysfunction. No regional wall motion abnormalities noted. Right Ventricle Normal RV size. Normal systolic function. Atria The left and right atria are normal. No doppler evidence for ASD. Mitral Valve There is no mitral valve stenosis. No mitral valve insufficiency. Tricuspid Valve There is no tricuspid stenosis. Mild tricuspid valve insufficiency. Pulmonary artery systolic pressure is 20 mmHg. Aortic Valve Trisinus/trileaflet aortic valve. Aortic sclerosis, no stenosis. There is no aortic stenosis. No aortic valve insufficiency. Pulmonic Valve There is no pulmonic valvular stenosis. No pulmonic valve insufficiency identified. Great Vessels Normal sized aortic root. Pericardium/Pleural No pericardial effusion. MMode/2D Measurements & Calculations LVIDd: 4.7 cm IVSd: 0.89 cm Ao root diam: 3.1 cm LVIDs: 2.6 cm LVPWd: 0.98 cm FS: 43.4 % LAV(MOD-bp): 47.3 ml LVAd ap4: 25.2 cm2 LVAd ap2: 21.5 cm2 LAV(MOD-bp) Indexed: 25.6 ml/m2 LVLd ap4: 8.2 cm LVLd ap2: 7.6 cm LAV(MOD-sp2): 46.4 ml EDV(MOD-sp4): 65.3 ml EDV(MOD-sp2): 52.6 ml LAV(MOD-sp4): 45.3 ml EDV(sp4-el): 66.0 ml EDV(sp2-el): 51.7 ml LVAs ap4: 11.5 cm2 LVAs ap2: 12.6 cm2 LVLs ap4: 7.0 cm LVLs ap2: 7.0 cm ESV(MOD-sp4): 17.3 ml ESV(MOD-sp2): 20.2 ml ESV(sp4-el): 16.1 ml ESV(sp2-el): 19.3 ml EF(MOD-sp4): 73.5 % EF(MOD-sp2): 61.5 % EF(sp4-el): 75.6 % SV(MOD-sp4): 48.0 ml SV(MOD-sp2): 32.3 ml SV(sp4-el): 49.9 ml SI(MOD-sp4): 26.0 ml/m2 SI(MOD-sp2): 17.5 ml/m2 LA A4 area: 17.4 cm2 LA dimension(2D): 4.0 cm TAPSE: 1.8 cm Time Measurements MV dec time: 0.23 sec Doppler Measurements & Calculations MV E max bridger: 46.1 cm/sec Lat Peak E' Bridger: 8.5 cm/sec Med Peak E' Bridger: 8.8 cm/sec MV A max bridger: 60.3 cm/sec E/E' lat: 5.4 E/E' med: 5.2 MV E/A: 0.76 MV V2 max: 68.5 cm/sec MV P1/2t max bridger: 57.2 cm/sec Ao V2 max: 135.2 cm/sec MV max P.9 mmHg MV P1/2t: 73.0 msec Ao max P.3 mmHg MV V2 mean: 33.5 cm/sec Ao V2 mean: 86.9 cm/sec MV mean P.54 mmHg MV dec slope: 229.5 cm/sec2 Ao mean P.4 mmHg MV V2 VTI: 13.6 cm MVA(P1/2t): 3.0 cm2 Ao V2 VTI: 22.6 cm AV (velocity ratio): 0.83 LV V1 max: 85.5 cm/sec PA V2 max: 107.9 cm/sec TR max bridger: 257.8 cm/sec LV V1 max P.9 mmHg TR max P.6 mmHg LV V1 mean P.3 mmHg LV V1 mean: 52.6 cm/sec LV V1 VTI: 18.8 cm ECHO/Echo Complete Interpretation Summary The estimated ejection fraction is 70 %. No evidence for diastolic dysfunction. Ordering Physician: Keanu Alfred Referring Physician: Kwabena Menjivar Performed By: Melida Child, PETERCS, RVT 04/20/24 1323 Date _ Danette Sargent MD CC: Dr. Kwabena Menjivar MD; Dr. Keanu Alfred DO ~ Date Dictated: 04/19/24 1500 Date Transcribed: 04/20/24 132 Balance Wheel Motion Inspector: Signed [facility] Work Phone: 12 Lead EKGon 04-19-2024 12 Lead EKG Normal [facility] Absolute neutrophil countOrd ered By: Laureano Gallagher on 04-19-2024 Neutrophils (Bld) [#/Vol] 12.1 10*3/uL High 2.0-7.7 [facility] Activated partial thrombopla stin time (aPTT) in platelet poor plasma by coagulation aOrdered By: Laureano Gallagher on 04-19-2024 aPTT Coag (PPP) [Time] 23.4 s Low 24.1-36.2 [facility] Anion gap in Serum or Plasma Ordered By: Laureano Gallagher on 04-19-2024 Anion gap [Moles/Vol] 17 mmol/L High 5-15 [facility] BUN/creatinine ratioOrdered By: Laureano Gallagher on 04-19-2024 Urea nitrogen/Creatinine [Mass ratio] 21.7 mg/mg High 10- [facility] Basic Metabolic Profile (BMP )on 04-19-2024 BUN/CRE 21.7 RATIO High 11-27 [facility] Comment on above: Performed By: #### L 501.4021, L100.0100, L300.3900, L500.2500, L300.4310 ####[facility] [address] [place], [address] Calcium [Mass/Vol] 9.5 mg/dL Normal 7.6-11.0 [facility] Comment on above: Performed By: #### L 501.4021, L100.0100, L300.3900, L500.2500, L300.4310 ####[facility] [address] [place], [address] Chloride [Moles/Vol] 98 mmol/L Normal 98-108 [facility] Comment on above: Performed By: #### L 501.4021, L100.0100, L300.3900, L500.2500, L300.4310 ####[facility] [address] [place], [address] CO2 [Moles/Vol] 22.0 mmol/L Normal 21.0-32.0 [facility] Comment on above: Performed By: #### L 501.4021, L100.0100, L300.3900, L500.2500, L300.4310 ####[facility] [address] [place], [address] Creatinine [Mass/Vol] 0.92 mg/dL Normal 0.70-1.20 [facility] Comment on above: Performed By: #### L 501.4021, L100.0100, L300.3900, L500.2500, L300.4310 ####[facility] [address] [place], [address] ECRCL 59.89 ml/min Normal 50-250 [facility] Comment on above: Performed By: #### L 501.4021, L100.0100, L300.3900, L500.2500, L300.4310 ####[facility] [address] [place], [address] GAP 17 High 5-15 [facility] Comment on above: Performed By: #### L 501.4021, L100.0100, L300.3900, L500.2500, L300.4310 ####[facility] [address] [place], [address] GFR/1.73 sq M.predicted among non-blacks MDRD (S/P/Bld) [Vol rate/Area] 83 mL/min/{1.73_m2} Normal >60 [facility] Comment on above: Result Comment: mL/m in/1.73m2 CKD-EPI Creatinine Equation (2020) Performed By: #### L 501.4021, L100.0100, L300.3900, L500.2500, L300.4310 ####[facility] [address] [place], [address] Glucose [Mass/Vol] 152 mg/dL High 70-99 [facility] Comment on above: Performed By: #### L 501.4021, L100.0100, L300.3900, L500.2500, L300.4310 ####[facility] [address] [place], [address] Potassium [Moles/Vol] 3.6 mmol/L Normal 3.3-5.1 [facility] Comment on above: Performed By: #### L 501.4021, L100.0100, L300.3900, L500.2500, L300.4310 ####[facility] [address] [place], [address] Sodium [Moles/Vol] 137 mmol/L Normal 133-145 [facility] Comment on above: Performed By: #### L 501.4021, L100.0100, L300.3900, L500.2500, L300.4310 ####[facility] [address] [place], [address] Urea nitrogen [Mass/Vol] 20 mg/dL High 4-19 [facility] Comment on above: Performed By: #### L 501.4021, L100.0100, L300.3900, L500.2500, L300.4310 ####[facility] [address] [place], [address] Basophil percentageOrdered B y: Laureano Gallagher on 04-19-2024 Basophils/100 WBC (Bld) 0.3 % 0-1 [facility] Bedside Glucoseon 04-19-2024 FINGERSTICK GLU 143 mg/dL High 74-106 [facility] Comment on above: Result Comment: ELIGIO BUSCH OF PATIENT CARE PER NURSING PROTOCOL Performed By: #### L 501.080 ####[facility] [address] [place], [address] Brain without Contraston Brain without Contrast Normal [facility] CBC W/Diff, Automatedon 03-1 2-2025 Absolute Lymph 1.41 X10 3/uL Normal 0.83-4.51 [facility] Comment on above: Performed By: #### L 501.4021, L100.0100, L300.3900, L500.2500, L300.4310 ####[facility] [address] [place], [address] Absolute Neut 12.1 X10 3/uL High 2.0-7.7 [facility] Comment on above: Performed By: #### L 501.4021, L100.0100, L300.3900, L500.2500, L300.4310 ####[facility] [address] [place], [address] Basophils/100 WBC (Bld) 0.3 % Normal 0-1 [facility] Comment on above: Performed By: #### L 501.4021, L100.0100, L300.3900, L500.2500, L300.4310 ####[facility] [address] [place], [address] Eosinophils/100 WBC (Bld) 0.0 % Normal 0-5 [facility] Comment on above: Performed By: #### L 501.4021, L100.0100, L300.3900, L500.2500, L300.4310 ####[facility] [address] [place], [address] Erythrocyte distribution width (RBC) [Ratio] 12.3 % Normal 11.6-14.6 [facility] Comment on above: Performed By: #### L 501.4021, L100.0100, L300.3900, L500.2500, L300.4310 ####[facility] [address] [place], [address] Hematocrit (Bld) [Volume fraction] 45.5 % Normal 40-54 [facility] Comment on above: Performed By: #### L 501.4021, L100.0100, L300.3900, L500.2500, L300.4310 ####[facility] [address] [place], [address] Hemoglobin (Bld) [Mass/Vol] 16.0 g/dL Normal 13.0-16.5 [facility] Comment on above: Performed By: #### L 501.4021, L100.0100, L300.3900, L500.2500, L300.4310 ####[facility] [address] [place], [address] IG% 0.500 Normal 0.0-0.9 [facility] Comment on above: Result Comment: IG% - Immature Granulocytes (promyelocytes, myelocytes andmetamyelocytes) > 1% indicates that a LEFT SHIFT is Present. Performed By: #### L 501.4021, L100.0100, L300.3900, L500.2500, L300.4310 ####[facility] [address] [place], [address] Lymphocytes/100 WBC (Bld) 9.8 % Low 19-41 [facility] Comment on above: Performed By: #### L 501.4021, L100.0100, L300.3900, L500.2500, L300.4310 ####[facility] [address] [place], [address] MCH (RBC) [Entitic mass] 30.0 pg Normal 27.0-32.0 [facility] Comment on above: Performed By: #### L 501.4021, L100.0100, L300.3900, L500.2500, L300.4310 ####[facility] [address] [place], [address] MCHC (RBC) [Mass/Vol] 35.2 g/dL Normal 32-36 [facility] Comment on above: Performed By: #### L 501.4021, L100.0100, L300.3900, L500.2500, L300.4310 ####[facility] [address] [place], [address] MCV (RBC) [Entitic vol] 85.2 fL Normal 80-94 [facility] Comment on above: Performed By: #### L 501.4021, L100.0100, L300.3900, L500.2500, L300.4310 ####[facility] [address] [place], [address] Monocytes/100 WBC (Bld) 5.7 % Normal 0-10 [facility] Comment on above: Performed By: #### L 501.4021, L100.0100, L300.3900, L500.2500, L300.4310 ####[facility] [address] [place], [address] Neutrophils/100 WBC (Bld) 83.7 % High 47-70 [facility] Comment on above: Performed By: #### L 501.4021, L100.0100, L300.3900, L500.2500, L300.4310 ####[facility] [address] [place], [address] Nucleated RBC (Bld) [#/Vol] 0 10*3/uL Normal 0-5 [facility] Comment on above: Performed By: #### L 501.4021, L100.0100, L300.3900, L500.2500, L300.4310 ####[facility] [address] [place], [address] Platelet mean volume (Bld) [Entitic vol] 8.6 fL Normal 6.2-12.0 [facility] Comment on above: Performed By: #### L 501.4021, L100.0100, L300.3900, L500.2500, L300.4310 ####[facility] [address] [place], [address] Platelets (Bld) [#/Vol] 216 10*3/uL Normal 150-450 [facility] Comment on above: Performed By: #### L 501.4021, L100.0100, L300.3900, L500.2500, L300.4310 ####[facility] [address] [place], [address] RBC (Bld) [#/Vol] 5.34 10*6/uL Normal 4.6-6.2 [facility] Comment on above: Performed By: #### L 501.4021, L100.0100, L300.3900, L500.2500, L300.4310 ####[facility] [address] [place], [address] RDW SD 37.7 fl Normal 35.1-43.9 [facility] Comment on above: Performed By: #### L 501.4021, L100.0100, L300.3900, L500.2500, L300.4310 ####[facility] [address] [place], [address] WBC (Bld) [#/Vol] 14.4 10*3/uL High 4.4-11.0 [facility] Comment on above: Performed By: #### L 501.4021, L100.0100, L300.3900, L500.2500, L300.4310 ####[facility] [address] [place], [address] Carbon dioxide, total [Moles /volume] in Central venous bloodOrdered By: Laureano Gallagher on 04-19-2024 CO2 [Moles/Vol] 22.0 mmol/L 21.0-32.0 [facility] Chest 1 Viewon 04-19-2024 Chest 1 View Normal [facility] Chloride assayOrdered By: Donovan Gallagher on 04-19-2024 Chloride [Moles/Vol] 98 mmol/L 98-108 [facility] Consultation - Surgicalon Consultation - Surgical Normal [facility] Echo Completeon 04-19-2024 Echo Complete Normal [facility] Emergency Department Summary on 04-19-2024 Emergency Department Summary Normal [facility] Eosinophil percentageOrdered By: Laureano Gallagher on 04-19-2024 Eosinophils/100 WBC (Bld) 0.0 % 0-5 [facility] Erythrocyte distribution wid th ratioOrdered By: Laureano Gallagher on 04-19-2024 Erythrocyte distribution width (RBC) [Ratio] 12.3 % 11.6-14.6 [facility] Erythrocyte distribution wid th standard deviationOrdered By: Laureano Gallagher on 04-19-2024 Erythrocyte distribution width (RBC) [Entitic vol] 37.7 fL 35.1-43.9 [facility] Estimation of creatinine yahir aranceOrdered By: Laureano Gallagher on 04-19-2024 Estimated Creatinine Clearance Calc 59.89 ml/min 50-250 [facility] GFR/1.73 sq M.predicted darrick g non-blacks MDRD (S/P/Bld) [Vol rate/Area]Ordered By: Laureano Gallagher on 04-19-2024 Estimated GFR (MDRD) Non-Af Amer 83 >60 [facility] Comment on above: mL/min/1.73m2 CKD-EP I Creatinine Equation (2020) Glucose measurement at bedsi deOrdered By: Laureano Gallagher on 04-19-2024 Bedside Glucose (Misc Panel) 143 mg/dL High 74-106 [facility] Comment on above: MANAGEMENT OF PATIEN T CARE PER NURSING PROTOCOL Glucose [Mass/Vol] 143 mg/dL High 74-106 [facility] H AND P Exam - Hospitaliston 04-19-2024 H&P Exam - Hospitalist Normal [facility] Hematocrit Auto (Bld) [Volum e fraction]Ordered By: Laureano Gallagher on 04-19-2024 Hematocrit (Bld) [Volume fraction] 45.5 % 40-54 [facility] Hemoglobin measurementOrdere d By: Laureano Gallagher on 04-19-2024 Hemoglobin (Bld) [Mass/Vol] 16.0 g/dL 13.0-16.5 [facility] Immature granulocytes/100 WB C Auto (Bld)Ordered By: Laureano Marlowne on 04-19-2024 Immature granulocytes/100 WBC (Bld) 0.500 % 0.0-0.9 [facility] Comment on above: IG% - Immature Granu locytes (promyelocytes, myelocytes and metamyelocytes) > 1% indicates that a LEFT SHIFT is Present. International normalized rat io (INR) calculationOrdered By: Laureano Gallagher on 04-19-2024 INR Coag (Bld) [Relative time] 1.0 {INR} [facility] L499.0042on 04-19-2024 Trop T High Sen 30 ng/L High <=22 [facility] Comment on above: Performed By: #### L 499.0042 ####[facility] [address] [place], [address] Trop T High Sen Normal <=22 [facility] Comment on above: Result Comment: Canc elled via OM: sequence error Performed By: #### L 499.0042 ####[facility] [address] [place], [address] L499.0043on 04-19-2024 Trop T High Sen 35 ng/L High <=22 [facility] Comment on above: Performed By: #### L 499.0043 ####[facility] [address] [place], [address] Trop T High Sen Normal <=22 [facility] Comment on above: Result Comment: PER OM STARTED SERIES OVER ON FLOOR ER DID NOT DRAW SPECIMEN Performed By: #### L 499.0043 ####[facility] [address] [place], [address] L501.4021on 04-19-2024 Trop T High Sen 31 ng/L High <=22 [facility] Comment on above: Performed By: #### L 501.4021 ####[facility] [address] [place], [address] Trop T High Sen 31 ng/L High <=22 [facility] Comment on above: Performed By: #### L 501.4021, L100.0100, L300.3900, L500.2500, L300.4310 ####[facility] [address] [place], [place], [id number] Lymphocytes Auto (Unsp spec) [#/Vol]Ordered By: Laureano Gallagher on 04-19-2024 Lymphocytes (Bld) [#/Vol] 1.41 10*3/uL 0.83-4.51 [facility] Lymphocytes/100 WBC Auto (Un sp spec)Ordered By: Laureano Gallagher on 04-19-2024 Lymphocytes/100 WBC (Bld) 9.8 % Low 19-41 [facility] MCV (mean corpuscular volume ) determinationOrdered By: Laureano Gallagher on 04-19-2024 MCV (RBC) [Entitic vol] 85.2 fL 80-94 [facility] Magnetic resonance imaging r eportOrdered By: Yas Mobley on 04-19-2024 Study report [facility] Imaging Services [address] [place], [place] [id number] Spine Cervical (Routine) MR#: [id number] Acct: [id number] Name: YAS ROSA Rep #: [id number] : 1940 M 83 From: Selwyn Mobley DO PCP: Dr. Kwabena Menjivar MD Status: ADM IRINA Study:Spine Cervical (Routine) Date of Exam: 04/19/24 Exam# [id number] Ordering Dr: Keanu Alfred DO PROCEDURE: MRI cervical spine without IV contrast REASON FOR EXAM: CHRONIC LEFT ARM WEAKNESS. TECHNIQUE: Multisequence multiplanar MR images of the cervical spine were obtained without the administration of intravenous contrast. COMPARISON: Same-day CTs FINDINGS: Vertebral body heights are within normal limits. Probable hemangioma in the C3 vertebral body. No evidence of acute fracture or traumatic subluxation. Diffuse increased cord signal at the level of C4 and C5 likely related to myelomalacia from severe spinal stenosis. Remaining cord signal is within normal limits. No paraspinal mass. C2-3: Minimal posterior disc bulge. Bilateral facet arthrosis. No significant spinal stenosis. Mild bilateral foraminal narrowing. C3-4: Posterior disc osteophyte complex eccentric to the right. Bilateral uncovertebral arthrosis, greater on the right. Severe spinal stenosis. Severe right and moderate left foraminal narrowing. C4-5: Large posterior disc osteophyte complex eccentric to the left with a superimposed left central extrusion demonstrating 6 mm of cranial migration. Bilateral uncovertebral arthrosis, greater on the left. Severe spinal stenosis with marked mass effect on the left cord. Spinal canal measures up to 3 mm in AP dimension. Severe bilateral foraminal narrowing. C5-6: Posterior disc osteophyte complex. Bilateral uncovertebral arthrosis. Moderate spinal stenosis. Severe right and moderate/severe left foraminal narrowing. C6-7: Posterior disc osteophyte complex eccentric to the right. Bilateral uncovertebral arthrosis. No significant spinal stenosis. Severe right and moderate left foraminal narrowing. C7-T1: Small posterior disc bulge. Moderate bilateral facet arthrosis. No significant spinal stenosis. Mild/moderate bilateral foraminal narrowing. MRI/Spine Cervical (Routine) IMPRESSION: 1. 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 2. Acquired mild to severe multilevel foraminal narrowing. See level by level comments above. 3. 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 Reading Location: [facility] CC: Dr. Kwabena Menjivar MD; Dr. Keanu Alfred DO ~ Balance Wheel Motion Inspector: Signed [facility] Study report [facility] Imaging Services [address], [place] [id number] Brain without Contrast MR#: [id number] Acct: [id number] Name: YAS ROSA Rep #: [id number] : 1940 M 83 From: Selwyn Mobley DO PCP: Dr. Kwabena Menjivar MD Status: ADM IRINA Study:Brain without Contrast Date of Exam: 04/19/24 Exam# [id number] Ordering Dr: Keanu Alfred DO PROCEDURE: MRI brain without IV contrast REASON FOR EXAM: CHRONIC LEFT ARM WEAKNESS. TECHNIQUE: Multisequence multiplanar MR images of the brain were obtained without the administration of intravenous contrast. COMPARISON: Same-day CTs FINDINGS: No evidence of acute intracranial hemorrhage, midline shift or mass effect. No diffusion restriction to suggest acute/subacute ischemia. No evidence of intraparenchymal microhemorrhage or calcification. Mild generalized cerebral atrophy. Scattered periventricular, subcortical and deep white matter hyperintense FLAIR signal foci most consistent with chronic small-vessel ischemic disease. No cortical edema. Globes are grossly intact. Blood products throughout the left maxillary sinus with associated facial bone fractures. Left facial soft tissue swelling. Left posterior scalp soft tissue swelling. MRI/Brain without Contrast IMPRESSION: 1. No acute intracranial abnormality, specifically no evidence of acute ischemia. 2. Mild atrophy and chronic small-vessel ischemic changes. 3. Acute left facial bone fractures better seen and described on recent facial bone CT. Reading Location: [facility] CC: Dr. Kwabena Menjivar MD; Dr. Keanu Alfred DO ~ Balance Wheel Motion Inspector: Signed [facility] Mean corpuscular hemoglobin (MCH) determinationOrdered By: Laureano Gallagher on 04-19-2024 MCH (RBC) [Entitic mass] 30.0 pg 27.0-32.0 [facility] Mean corpuscular hemoglobin concentration (MCHC) determinationOrdered By: Laureano Gallagher on 04-19-2024 MCHC (RBC) [Mass/Vol] 35.2 g/dL 32-36 [facility] Mean platelet volume determi nationOrdered By: Laureano Gallagher on 04-19-2024 Platelet mean volume (Bld) [Entitic vol] 8.6 fL 6.2-12.0 [facility] Monocyte percentageOrdered B y: Laureano Gallagher on 04-19-2024 Monocytes/100 WBC (Bld) 5.7 % 0-10 [facility] Neutrophil percentageOrdered By: Laureano Gallagher on 04-19-2024 Neutrophils/100 WBC (Bld) 83.7 % High 47-70 [facility] No Panel InformationOrdered By: Keanu Alfred on 03-12-2025 Troponin T High Sensitivity 31 ng/L High <22 [facility] 31 ng/L High <22 [facility] No Panel InformationOrdered By: Laureano Gallagher on 04-19-2024 Troponin T High Sensitivity 31 ng/L High <22 [facility] Nucleated red blood cell per centageOrdered By: Laureano Gallagher on 04-19-2024 Nucleated RBC/100 WBC (Bld) [Ratio] 0 % 0-5 [facility] Partial Thromboplast Timeon 04-19-2024 aPTT Coag (Bld) [Time] 23.4 s Low 24.1-36.2 [facility] Comment on above: Performed By: #### L 501.4021, L100.0100, L300.3900, L500.2500, L300.4310 ####[facility] [address] [place], [address] Platelet countOrdered By: Donovan Gallagher on 04-19-2024 Platelets (Bld) [#/Vol] 216 10*3/uL 150-450 [facility] Potassium (Unsp spec) [Mass/ Vol]Ordered By: Laureano Gallagher on 04-19-2024 Potassium [Moles/Vol] 3.6 mmol/L 3.3-5.1 [facility] Prothrombin Time w/INRon INR Coag (PPP) [Relative time] 1.0 {INR} Normal [facility] Comment on above: Performed By: #### L 501.4021, L100.0100, L300.3900, L500.2500, L300.4310 ####[facility] [address] [place], [address] PT Coag (PPP) [Time] 13.5 s Normal 11.7-14.9 [facility] Comment on above: Performed By: #### L 501.4021, L100.0100, L300.3900, L500.2500, L300.4310 ####[facility] [address] [place], [address] Prothrombin timeOrdered By: Laureano Gallagher on 04-19-2024 PT Coag (PPP) [Time] 13.5 s 11.7-14.9 [facility] RBC Auto (Bld) [#/Vol]Ordere d By: Laureano Gallagher on 04-19-2024 RBC (Bld) [#/Vol] 5.34 10*6/uL 4.6-6.2 [facility] STROKE Brain/Head without Co nton 04-19-2024 STROKE Brain/Head without Cont Normal [facility] STROKE CTA Head AND Neck W/C onon 04-19-2024 STROKE CTA Head AND Neck W/Con Normal [facility] Serum creatinine measurement (mass/volume)Ordered By: Laureano Gallagher on 04-19-2024 Creatinine [Mass/Vol] 0.92 mg/dL 0.70-1.20 [facility] Serum glucose measurement (m ass/volume)Ordered By: Laureano Gallagher on 04-19-2024 Glucose [Mass/Vol] 152 mg/dL High 70-99 [facility] Serum or plasma calcium ratna urement (mass/volume)Ordered By: Laureano Gallagher on 04-19-2024 Calcium [Mass/Vol] 9.5 mg/dL 7.6-11.0 [facility] Serum or plasma urea nitroge n measurement (mass/volume)Ordered By: Laureano Gallagher on 04-19-2024 Urea nitrogen [Mass/Vol] 20 mg/dL High 4-19 [facility] Sinus/Facial Boneon 04-20-19 25 Sinus/Facial Bone Normal [facility] Sodium levelOrdered By: Surinder Gallagher on 04-19-2024 Sodium [Moles/Vol] 137 mmol/L 133-145 [facility] Spine Cervical (Routine)on 0 04-19-2024 Spine Cervical (Routine) Normal [facility] Troponin T.cardiac High sens itivity method [Mass/Vol]Ordered By: Keanu Alfred on 04-19-2024 Troponin T High Sensitivity 4 Hour 35 ng/L High <22 [facility] Troponin T High Sensitivity 2 Hour 30 ng/L High <22 [facility] Troponin T.cardiac [Mass/vol ume] in Serum or Plasma by High sensitivity methodOrdered By: Keanu Alfred on 04-19-2024 Troponin T.cardiac High sensitivity method [Mass/Vol] 35 ng/L High <22 [facility] Troponin T.cardiac High sensitivity method [Mass/Vol] 30 ng/L High <22 [facility] White blood cell (WBC) count Ordered By: Laureano Gallagher on 04-19-2024 WBC (Bld) [#/Vol] 14.4 10*3/uL High 4.4-11.0 [facility] aPTT Coag (PPP) [Time]Ordere d By: Laureano Gallagher on 04-19-2024 aPTT Coag (Bld) [Time] 23.4 s Low 24.1-36.2 [facility] Cerv Spine 4 or 5 Viewson Cerv Spine 4 or 5 Views Normal [facility] Brain/Head without Contrasto n 02-26-2024 Brain/Head without Contrast Normal [facility] Emergency Department Summary on 02-26-2024 Emergency Department Summary Normal [facility] Knee 4 or More Viewson 02-25 Knee 4 or More Views Normal [facility] Shoulder min 2 Viewson 02-25 Shoulder min 2 Views Normal [facility] Absolute lymphocyte countOrd ered By: William Menjivar on 10-22-2022 Lymphocytes Auto (Unsp spec) [#/Vol] 2.36 10*3/uL 0.83-4.51 [facility] Basophil percentageOrdered B y: William Menjivar on 10-22-2022 Basophils/100 WBC (Bld) 0.5 % 0-1 [facility] Bilirubin [Mass/Vol] 0.40 mg/dL 0.20-1.00 [facility] Comment on above: For patients on eltr ombopag therapy, use of Dimension [place] TBIL is not recommended. Chloride [Moles/Vol] 107 mmol/L 98-107 [facility] Cholesterol [Mass/Vol] 171 mg/dL <200 [facility] Comment on above: <200 mg/dL Desirable 200-240 mg/dL Borderline >240 mg/dL High Risk Eosinophils/100 WBC (Bld) 2.4 % 0-5 [facility] Glucose [Mass/Vol] 94 mg/dL 74-106 [facility] Neutrophils (Bld) [#/Vol] 3.5 10*3/uL 2.0-7.7 [facility] Neutrophils/100 WBC (Bld) 53.3 % 47-70 [facility] Potassium [Moles/Vol] 4.0 mmol/L 3.5-5.1 [facility] Protein [Mass/Vol] 6.8 g/dL 6.4-8.2 [facility] Sodium [Moles/Vol] 138 mmol/L 136-145 [facility] Testosterone [Mass/Vol] 600.99 ng/dL [facility] Comment on above: CENTRAL 90% REFERENC E RANGES MALE AGE <50 197.44 - 669.58 ng/dL MALE AGE > or = 50 187.72 - 684.19 ng/dL FEMALE AGE <50 8.38 - 35.01 ng/dL FEMALE AGE > or = 50 <7.00 - 35.92 ng/dL Effective as of 09/03/20 Triglyceride [Mass/Vol] 144 mg/dL <199 [facility] Comment on above: The drugs N-Acetylcy steine and Metamizole may falsely depress this assay.Serum Triglycerides Reference Interval Normal <150 mg/dL Borderline high 150 - 199 mg/dL High 200 - 499 mg/dL Very High > or = 500 mg/dL WBC (Bld) [#/Vol] 6.6 10*3/uL 4.4-11.0 [facility] Blood erythrocytes count (nu mber/volume)Ordered By: William Menjivar on 10-22-2022 RBC (Bld) [#/Vol] 5.14 10*6/uL 4.6-6.2 [facility] Blood hemoglobin measurement (mass/volume)Ordered By: William Menjivar on 10-22-2022 Hemoglobin (Bld) [Mass/Vol] 15.5 g/dL 13.0-16.5 [facility] Blood lymphocytes/100 leukoc ytesOrdered By: William Menjivar on 10-22-2022 Lymphocytes/100 WBC (Bld) 35.8 % 19-41 [facility] Blood monocytes/100 leukocyt esOrdered By: William Menjivar on 10-22-2022 Monocytes/100 WBC (Bld) 7.7 % 0-10 [facility] Blood platelet mean volumeOr dered By: William Menjivar on 10-22-2022 Platelet mean volume (Bld) [Entitic vol] 8.8 fL 6.2-12.0 [facility] Determination of erythrocyte mean corpuscular volume (MCV)Ordered By: William Menjivar on 10-22-2022 MCV (RBC) [Entitic vol] 90.1 fL 80-94 [facility] Erythrocyte sedimentation ra teOrdered By: William Menjivar on 10-22-2022 ESR (Bld) [Velocity] 10 mm/h 0-[facility] Hematocrit Auto (Bld) [Volum e fraction]Ordered By: William Menjivar on 10-22-2022 Hematocrit (Bld) [Volume fraction] 46.3 % 40-54 [facility] Iron measurement (mass/mass) Ordered By: William Menjivar on 10-22-2022 Iron (Unsp spec) [Mass/Mass] 75 ug/dL 65-175 [facility] Laboratory - Chemistry and C hemistry - challengeOrdered By: William Menjivar on 10-22-2022 ALP [Catalytic activity/Vol] 98 U/L 45-117 [facility] ALT [Catalytic activity/Vol] 28 U/L 16-61 [facility] CO2 [Moles/Vol] 27.0 mmol/L 21.0-32.0 [facility] Cobalamin (Vitamin B12) [Mass/Vol] 266 pg/mL 211-911 [facility] Globulin (S) [Mass/Vol] 3.0 g/dL 2.2-4.2 [facility] Urea nitrogen/Creatinine [Mass ratio] 12.5 mg/mg 10-20 [facility] Laboratory - Hematology and Cell countsOrdered By: William Menjivar on 10-22-2022 Erythrocyte distribution width (RBC) [Entitic vol] 41.8 fL 35.1-43.9 [facility] Erythrocyte distribution width (RBC) [Ratio] 12.5 % 11.6-14.6 [facility] Immature granulocytes/100 WBC (Bld) 0.300 % 0.0-0.9 [facility] Comment on above: IG% - Immature Granu locytes (promyelocytes, myelocytes and metamyelocytes) > 1% indicates that a LEFT SHIFT is Present. MCH (RBC) [Entitic mass] 30.2 pg 27.0-32.0 [facility] Nucleated RBC/100 WBC (Bld) [Ratio] 0 % 0-5 [facility] MCHC Auto (RBC) [Mass/Vol]Or dered By: William Menjivar on 10-22-2022 MCHC (RBC) [Mass/Vol] 33.5 g/dL 32-36 [facility] No Panel InformationOrdered By: William Menjivar on 10-22-2022 Anti-Nuclear Antibody Screen Positive Negative [facility] Comment on above: Performed at: [facility] [address] [id number] Director: Nino Del Castillo PhD, Phone: [phone] Estimated GFR (MDRD) Amer 119 mL/min >60 [facility] Comment on above: GFR Calc Estimated GFR (MDRD) Non-Af Amer 99 mL/min >60 [facility] Comment on above: Non- GFR Calc Thyroid Stimulating Hormone (TSH) 1.22 uIU/mL 0.358-3.74 [facility] Vitamin D 25-Hydroxy 28.9 ng/mL [facility] Comment on above: Vitamin D 25(OH) Sta tus Range Deficiency <20 ng/mL (50nmol/L) Insufficiency 20 - 30 ng/mL (50 - 75 nmol/L) Sufficiency 30 - 100 ng/mL (75 - 250 nmol/L) Toxicity >100 ng/mL (>250 nmol/L) Platelets bldOrdered By: Blayne Menjivar on 10-22-2022 Platelets (Bld) [#/Vol] 210 10*3/uL 150-450 [facility] Serum or plasma C reactive p rotein measurement (mass/volume)Ordered By: William Menjivar on 10-22-2022 CRP [Mass/Vol] mg/L 0.0-3.0 [facility] Comment on above: C-Reactive Protein ( CRP) provides useful information for thediagnosis, therapy and monitoring of inflammatory processesand associated diseases. For the evaluation of Relative Riskfor Cardiovascular Disease, a High Sensitivity CRP (HSCRP)should be ordered. Serum or plasma albumin ratna urement (mass/volume)Ordered By: William Menjivar on 10-22-2022 Albumin [Mass/Vol] 3.8 g/dL 3.2-5.0 [facility] Serum or plasma albumin/glob ulin mass ratioOrdered By: William Menjivar on 10-22-2022 Albumin/Globulin [Mass ratio] 1.3 {ratio} 0.9-2.4 [facility] Serum or plasma calcium ratna urement (mass/volume)Ordered By: William Menjivar on 10-22-2022 Calcium [Mass/Vol] 8.8 mg/dL 8.5-10.1 [facility] Serum or plasma cholesterol in HDL measurement (mass/volume)Ordered By: William Menjivar on 10-22-2022 Cholesterol in HDL [Mass/Vol] 52 mg/dL >40 [facility] Comment on above: The drugs N-Acetylcy steine and Metamizole may falsely depress this assay. Reference Range HDL <40 mg/dL Low HDL Cholesterol HDL >or= 60 mg/dL High HDL Cholesterol Serum or plasma cholesterol in VLDL measurement (mass/volume)Ordered By: William Menjivar on 10-22-2022 Cholesterol in VLDL [Mass/Vol] 29 mg/dL 5-40 [facility] Serum or plasma creatinine m easurement (mass/volume)Ordered By: William Menjivar on 10-22-2022 Creatinine [Mass/Vol] 0.80 mg/dL 0.70-1.30 [facility] Comment on above: The validity of the calculated GFR & GFRAA in patients over 70 years has not been determined. Clinical correlation is essential. Serum or plasma ferritin darline surement (mass/volume)Ordered By: William Menjivar on 10-22-2022 Ferritin [Mass/Vol] 168 ng/mL 26-388 [facility] Serum or plasma low density lipoprotein (LDL) cholesterol measurement (mass/volume)Ordered By: William Menjivar on 10-22-2022 Cholesterol in LDL [Mass/Vol] 90 mg/dL 0-130 [facility] Serum or plasma urea nitroge n measurement (mass/volume)Ordered By: Willaim Menjivar on 10-22-2022 Urea nitrogen [Mass/Vol] 10 mg/dL 7-18 [facility] Serum rheumatoid factor dete ctionOrdered By: William Menjivar on 10-22-2022 Rheumatoid factor Ql (S) < 10.0 IU/mL <15 [facility] Thin prep Papanicolaou smear with manual screeningOrdered By: William Menjivar on 10-22-2022 Thin prep Papanicolaou smear with manual screening 20 U/L 15-37 [facility] Thin prep Papanicolaou smear with manual screening 4 5-15 [facility] Emergency Room Note on 09-18-2016 [place] [facility] Note Normal [facility] ([place] .Auto Diffon 09-15-2016 Basophils Auto #/vol (Bld) 0.10 10 3/mcL Normal 0.00-0.19 [facility] ([place] Comment on above: Performed By: #### C BC, ADIFF, ANEU, TROP, GFR, CMP ####[address] [place], [place] [address] Basophils/100 WBC Auto (Bld) 0.7 % Normal 0.0-2.5 [facility] ([place] Comment on above: Performed By: #### C BC, ADIFF, ANEU, TROP, GFR, CMP ####[address] [place], [place] [address] Eosinophils 0.00 10 3/mcL Normal 0.00-0.40 [facility] ([place] Comment on above: Performed By: #### C BC, ADIFF, ANEU, TROP, GFR, CMP ####[address] [place], [place] [address] Eosinophils/100 leukocytes 0.5 % Normal 0.0-7.0 [facility] ([place] Comment on above: Performed By: #### C BC, ADIFF, ANEU, TROP, GFR, CMP ####[address] [place], [place] [address] Lymphocytes 1.90 10 3/mcL Normal 0.77-3.85 [facility] ([place] Comment on above: Performed By: #### C BC, ADIFF, ANEU, TROP, GFR, CMP ####[id number] [place], [place] [address] Lymphocytes/100 leukocytes 21.5 % Normal 10.0-50.0 [facility] ([place] Comment on above: Performed By: #### C BC, ADIFF, ANEU, TROP, GFR, CMP ####[address] [place], [place] [address] Monocytes 0.70 10 3/mcL Normal 0.15-1.00 [facility] ([place] Comment on above: Performed By: #### C BC, ADIFF, ANEU, TROP, GFR, CMP ####[address] [place], [place] [address] Monocytes/100 leukocytes 7.5 % Normal 1.7-13.0 [facility] ([place] Comment on above: Performed By: #### C BC, ADIFF, ANEU, TROP, GFR, CMP ####[address] [place], [place] [address] Neutrophils/100 WBC Auto (Bld) 69.8 % Normal 37.0-80.0 [facility] ([place] Comment on above: Performed By: #### C BC, ADIFF, ANEU, TROP, GFR, CMP ####[address] [place], [place] [address] .NEUABSon 09-15-2016 Neutrophils 6.30 10 3/mcL High 2.85-6.16 [facility] ([place] Comment on above: Performed By: #### C BC, ADIFF, ANEU, TROP, GFR, CMP ####[address] [place], [place] [address] CBCon 09-15-2016 Erythrocyte distribution width Auto Ratio (RBC) 13.0 % Normal 11.5-14.5 [facility] ([place] Comment on above: Performed By: #### C BC, ADIFF, ANEU, TROP, GFR, CMP ####[address] [place], [place] [address] Erythrocytes (RBC) 5.10 10 6/mcL Normal 4.04-6.13 [facility] ([place]) Comment on above: Performed By: #### C BC, ADIFF, ANEU, TROP, GFR, CMP ####[address] [place], [place] [address] Hematocrit (HCT) 43.6 % Normal 42.0-52.0 [facility] ([place] Comment on above: Performed By: #### C BC, ADIFF, ANEU, TROP, GFR, CMP ####[address] [place], [place] [address] Hemoglobin mass conc (Bld) 14.9 G/dL Normal 14.0-18.0 [facility] ([place] Comment on above: Performed By: #### C BC, ADIFF, ANEU, TROP, GFR, CMP ####[address] [place] [id number] MCH 29.1 pg Normal 27.0-31.2 [facility] ([place] Comment on above: Performed By: #### C BC, ADIFF, ANEU, TROP, GFR, CMP ####[address] [place], [place] [address] MCHC mass conc (RBC) 34.1 G/dL Normal 31.8-35.4 [facility] ([place]) Comment on above: Performed By: #### C BC, ADIFF, ANEU, TROP, GFR, CMP ####[address] [place], [place] [address] MCV 85.5 fL Normal 80.0-94.0 [facility] ([place] Comment on above: Performed By: #### C BC, ADIFF, ANEU, TROP, GFR, CMP ####[address] [place], [place] [address] Platelet mean volume (PMV) 6.7 fL Low 7.4-10.4 [facility] ([place] Comment on above: Performed By: #### C BC, ADIFF, ANEU, TROP, GFR, CMP ####[address] [place], [place] [address] Platelets 207 10 3/mcL Normal 130-400 [facility] ([place] Comment on above: Performed By: #### C BC, ADIFF, ANEU, TROP, GFR, CMP ####[address] [place], [place] [address] WBC (Leukocytes) 9.00 10 3/mcL Normal 4.60-10.80 [facility] ([place]) Comment on above: Performed By: #### C BC, ADIFF, ANEU, TROP, GFR, CMP ####[address] [place], [place] [address] CMPon 09-15-2016 BUN/Creatinine Ratio 11 ratio Normal 7-27 [facility] ([place] Comment on above: Performed By: #### C BC, ADIFF, ANEU, TROP, GFR, CMP ####[address] [place], [place] [address] Creatinine 1.1 mg/dL Normal 0.6-1.2 [facility] ([place] Comment on above: Performed By: #### C BC, ADIFF, ANEU, TROP, GFR, CMP ####[address] [place], [place] [address] Alanine aminotransferase (ALT) 13 ZZ Normal 10-35 [facility] ([place] Comment on above: Performed By: #### C BC, ADIFF, ANEU, TROP, GFR, CMP ####[address] [place], [place] [address] Albumin 4.6 G/dL Normal 3.4-4.8 [facility] ([place] Comment on above: Performed By: #### C BC, ADIFF, ANEU, TROP, GFR, CMP ####[address] [place], [place] [address] Albumin/Globulin Ratio 1.8 {ratio} Normal 1.1-2.5 [facility] ([place]) Comment on above: Performed By: #### C BC, ADIFF, ANEU, TROP, GFR, CMP ####[address] [place], [place] [address] Alk Phos 80 ZZ Normal 40-135 [facility] ([place] Comment on above: Performed By: #### C BC, ADIFF, ANEU, TROP, GFR, CMP ####[address] [place], [place] [address] Aspartate aminotransferase (AST) 14 ZZ Normal 10-40 [facility] ([place] Comment on above: Performed By: #### C BC, ADIFF, ANEU, TROP, GFR, CMP ####[address] [place], [place] [address] Bili Total 0.7 mg/dL Normal 0.2-1.0 [facility] ([place] Comment on above: Performed By: #### C BC, ADIFF, ANEU, TROP, GFR, CMP ####[address] [place], [place] [address] Calcium 9.3 mg/dL Normal 8.4-10.2 [facility] ([place] Comment on above: Performed By: #### C BC, ADIFF, ANEU, TROP, GFR, CMP ####[address] [place], [place] [address] CO2 23 mmol/L Normal 23-31 [facility] ([place] Comment on above: Performed By: #### C BC, ADIFF, ANEU, TROP, GFR, CMP ####[address] [place], [place] [address] Electrolyte Balance 10.0 mEq/L Normal [facility] ([place]) Comment on above: Performed By: #### C BC, ADIFF, ANEU, TROP, GFR, CMP ####[address] [place], [place] [address] Globulin 2.5 G/dL Normal [facility] ([place] Comment on above: Performed By: #### C BC, ADIFF, ANEU, TROP, GFR, CMP ####[address] [place], [place] [address] Glucose mass conc 104 mg/dL Normal 83-110 [facility] ([place] Comment on above: Performed By: #### C BC, ADIFF, ANEU, TROP, GFR, CMP ####[address] [place], [place] [address] Protein 7.1 G/dL Normal 6.0-8.3 [facility] ([place] Comment on above: Performed By: #### C BC, ADIFF, ANEU, TROP, GFR, CMP ####[address] [place], [place] [address] Urea nitrogen 12.6 mg/dL Normal 7.0-18.0 [facility] ([place] Comment on above: Performed By: #### C BC, ADIFF, ANEU, TROP, GFR, CMP ####[address] [place], [place] [address] Chloride 102 mmol/L Normal 98-107 [facility] ([place] Comment on above: Performed By: #### C BC, ADIFF, ANEU, TROP, GFR, CMP ####[address] [place], [place] [address] Potassium molar conc 4.1 mmol/L Normal 3.5-5.1 [facility] ([place] Comment on above: Performed By: #### C BC, ADIFF, ANEU, TROP, GFR, CMP ####[address] [place], [place] [address] Sodium 135 mmol/L Low 136-146 [facility] ([place] Comment on above: Performed By: #### C BC, ADIFF, ANEU, TROP, GFR, CMP ####[address] [place], [place] [address] CT ABD/PELVIS W/ IV CONTRAST ONLYon 09-15-2016 CT ABD/PELVIS W/ IV CONTRAST ONLY ORIGINALCT abdomen and pelvis with IV contrast HISTORY: Abdominal pain COMPARISON: None This exam was performed according to our departmental dose optimization program, and includes the following measures where applicable: automated exposure control, adjustment of the mAs and/or kVp according to patient size and/or exam, and an iterative reconstruction algorithm. There are mild degenerative changes in the spine. Small scattered areas of pleural thickening are present at the lung bases. There are multiple tiny interstitial nodules identified at both lower lobes right greater than left. The liver and spleen are normal. There is a 19 mm right adrenal nodule presumably a small benign adenoma. The pancreas is normal. There is a midpole left renal cyst present. The kidneys are otherwise unremarkable. No free air, free fluid or adenopathy is identified. There is no GI tract findings seen. No additional contributory abnormality. IMPRESSION: No acute abnormality identified. Right adrenal nodule presumably a benign adenoma. If characterization is clinically needed, then dedicated adrenal CT scanning would be useful. Multiple tiny interstitial nodules at the lung bases are presumably chronic. If characterization is clinically needed, then dedicated chest CT may be useful. Interpreted By: Jian Fergusonreliminary Report By: Jian Ferguson MDElectronically Signed By: Jian Ferguson MD Dictated Date: 09/15/2016 12:16:26 AM Prelim Date: 09/15/2016 12:16:26 AM Sign Date: 09/15/2016 12:20:36 AM Normal [facility] ([place]) GFRon 09-15-2016 eGFR (non-black) 79 ml/min/1.73sqm Normal A [facility] ([place]) Comment on above: Result Comment: GFR Population mean for , Non- Americans Ages 20-29 = 116 mL/min/1.73 sq.m. Ages 30-39 = 107 mL/min/1.73 sq.m. Ages 40-49 = 99 mL/min/1.73 sq.m. Ages 50-59 = 93 mL/min/1.73 sq.m. Ages 60-69 = 85 mL/min/1.73 sq.m. Ages 70+ = 75 mL/min/1.73 sq.m.Chronic Kidney Disease: Less than 60 mL/min/1.73 square metersEnd Stage Renal Disease: Less than 15 mL/min/1.73 square meters Performed By: #### C BC, ADIFF, ANEU, TROP, GFR, CMP ####[facility] [place] [id number] eGFR (non-black) mL/min/{1.73_m2} Normal [facility] ([place]) Comment on above: Result Comment: GFR Population mean for , Non- Americans Ages 20-29 = 116 mL/min/1.73 sq.m. Ages 30-39 = 107 mL/min/1.73 sq.m. Ages 40-49 = 99 mL/min/1.73 sq.m. Ages 50-59 = 93 mL/min/1.73 sq.m. Ages 60-69 = 85 mL/min/1.73 sq.m. Ages 70+ = 75 mL/min/1.73 sq.m.Chronic Kidney Disease: Less than 60 mL/min/1.73 square metersEnd Stage Renal Disease: Less than 15 mL/min/1.73 square meters Performed By: #### C BC, ADIFF, ANEU, TROP, GFR, CMP ####[address] [place], [place] [address] LIPon 09-15-2016 Lipase Level 26 ZZ Normal 8-78 [facility] ([place]) Comment on above: Performed By: #### C BC, ADIFF, ANEU, TROP, GFR, CMP ####[address] [place], [place] [address] [facility] Note on 09-15-2016 [facility] Note Normal [facility] ([place]) Patient Summary Documentson 09-15-2016 Patient Summary Documents Normal [facility]) .Auto Diffon 09-12-2016 Basophils Auto #/vol (Bld) 0.00 10 3/mcL Normal 0.00-0.19 [facility] ([place] Comment on above: Performed By: #### C BC, ADIFF, ANEU, TROP, GFR, CMP ####[address] [place], [place] [address] Basophils/100 WBC Auto (Bld) 0.5 % Normal 0.0-2.5 [facility] ([place] Comment on above: Performed By: #### C BC, ADIFF, ANEU, TROP, GFR, CMP ####[address] [place], [place] [address] Eosinophils 0.00 10 3/mcL Normal 0.00-0.40 [facility] ([place] Comment on above: Performed By: #### C BC, ADIFF, ANEU, TROP, GFR, CMP ####[address] [place], [place] [address] Eosinophils/100 leukocytes 0.4 % Normal 0.0-7.0 [facility] ([place] Comment on above: Performed By: #### C BC, ADIFF, ANEU, TROP, GFR, CMP ####[address] [place], [place] [address] Lymphocytes 2.50 10 3/mcL Normal 0.77-3.85 [facility] ([place]) Comment on above: Performed By: #### C BC, ADIFF, ANEU, TROP, GFR, CMP ####[address] [place], [place] [address] Lymphocytes/100 leukocytes 28.8 % Normal 10.0-50.0 [facility] ([place] Comment on above: Performed By: #### C BC, ADIFF, ANEU, TROP, GFR, CMP ####[address] [place], [place] [address] Monocytes 0.80 10 3/mcL Normal 0.15-1.00 [facility] ([place] Comment on above: Performed By: #### C BC, ADIFF, ANEU, TROP, GFR, CMP ####[address] [place], [place] [address] Monocytes/100 leukocytes 9.2 % Normal 1.7-13.0 [facility] ([place] Comment on above: Performed By: #### C BC, ADIFF, ANEU, TROP, GFR, CMP ####[address] [place], [place] [address] Neutrophils/100 WBC Auto (Bld) 61.1 % Normal 37.0-80.0 [facility] ([place]) Comment on above: Performed By: #### C BC, ADIFF, ANEU, TROP, GFR, CMP ####[address] [place], [place] [address] .NEUABSon 09-12-2016 Neutrophils 5.30 10 3/mcL Normal 2.85-6.16 [facility] ([place]) Comment on above: Performed By: #### C BC, ADIFF, ANEU, TROP, GFR, CMP ####[address] [place], [place] [address] .Urinalysis Microscopic (AO) on 09-12-2016 UA Squam Epithelial 0-5 Abnormal None Seen [facility] ([place]) Comment on above: Performed By: #### U A, UAMICAO ####[address] [place], [place] [address] UA WBC None Seen Normal None Seen [facility] [place] Comment on above: Performed By: #### Екатерина Valladares UAMICAO ####[address]acyautumn [address] [place], [place] [address] Urine, erythrocytes None Seen Normal None Seen [facility] ([place]) Comment on above: Performed By: #### Екатерина Valladares UAMICAO ####[address] [place], [place] [address] CBCon 09-12-2016 Erythrocyte distribution width Auto Ratio (RBC) 12.9 % Normal 11.5-14.5 [facility] ([place] Comment on above: Performed By: #### C BC, ADIFF, ANEU, TROP, GFR, CMP ####[address]acy [address] [place], [place] [address] Erythrocytes (RBC) 4.97 10 6/mcL Normal 4.04-6.13 [facility] ([place]) Comment on above: Performed By: #### C BC, ADIFF, ANEU, TROP, GFR, CMP ####[address]ia [address] [place] [id number] Hematocrit (HCT) 42.2 % Normal 42.0-52.0 [facility] ([place] Comment on above: Performed By: #### C BC, ADIFF, ANEU, TROP, GFR, CMP ####[address]acy [address] [place], [place] [address] Hemoglobin mass conc (Bld) 14.5 G/dL Normal 14.0-18.0 [facility] ([place] Comment on above: Performed By: #### C BC, ADIFF, ANEU, TROP, GFR, CMP ####[address] [place], [place] [address] MCH 29.3 pg Normal 27.0-31.2 [facility] ([place] Comment on above: Performed By: #### C BC, ADIFF, ANEU, TROP, GFR, CMP ####[address] [place], [place] [address] MCHC mass conc (RBC) 34.4 G/dL Normal 31.8-35.4 [facility] ([place]) Comment on above: Performed By: #### C BC, ADIFF, ANEU, TROP, GFR, CMP ####Macy [address] [place], [place] [address] MCV 85.0 fL Normal 80.0-94.0 [facility] ([place] Comment on above: Performed By: #### C BC, ADIFF, ANEU, TROP, GFR, CMP ####Macy [address] [place], [place] [address] Platelet mean volume (PMV) 6.8 fL Low 7.4-10.4 [facility] ([place] Comment on above: Performed By: #### C BC, ADIFF, ANEU, TROP, GFR, CMP ####[address] [place], [place] [address] Platelets 196 10 3/mcL Normal 130-400 [facility] ([place] Comment on above: Performed By: #### C BC, ADIFF, ANEU, TROP, GFR, CMP ####[address] [place], [place] [address] WBC (Leukocytes) 8.70 10 3/mcL Normal 4.60-10.80 [facility] ([place]) Comment on above: Performed By: #### C BC, ADIFF, ANEU, TROP, GFR, CMP ####[address]acy [address] [place], [place] [address] CMPon 09-12-2016 Aspartate aminotransferase (AST) 15 ZZ Normal 10-40 [facility] ([place] Comment on above: Performed By: #### C BC, ADIFF, ANEU, TROP, GFR, CMP ####Macy [address] [place], [place] [address] Alanine aminotransferase (ALT) 14 ZZ Normal 10-35 [facility] ([place] Comment on above: Performed By: #### C BC, ADIFF, ANEU, TROP, GFR, CMP ####[address] [place], [place] [address] Alk Phos 74 ZZ Normal 40-135 [facility] [place] Comment on above: Performed By: #### C BC, ADIFF, ANEU, TROP, GFR, CMP ####[address] [place] [address] Glucose mass conc 96 mg/dL Normal 83-110 [facility] ([place] Comment on above: Performed By: #### C BC, ADIFF, ANEU, TROP, GFR, CMP ####[address]umn [address] [place], [place] [address] Albumin/Globulin Ratio 1.9 {ratio} Normal 1.1-2.5 A [facility] ([place]) Comment on above: Performed By: #### C BC, ADIFF, ANEU, TROP, GFR, CMP ####[address] [place], [place] [address] Globulin 2.3 G/dL Normal [facility] ([place] Comment on above: Performed By: #### C BC, ADIFF, ANEU, TROP, GFR, CMP ####M[address] [place], [place] [address] Protein 6.6 G/dL Normal 6.0-8.3 [facility] ([place] Comment on above: Performed By: #### C BC, ADIFF, ANEU, TROP, GFR, CMP ####[address] [place], [place] [address] Chloride 101 mmol/L Normal 98-107 [facility] ([place] Comment on above: Performed By: #### C BC, ADIFF, ANEU, TROP, GFR, CMP ####[address] [place], [place] [address] Electrolyte Balance 11.0 mEq/L Normal [facility] ([place]) Comment on above: Performed By: #### C BC, ADIFF, ANEU, TROP, GFR, CMP ####[address] [place], [place] [address] Potassium molar conc 4.2 mmol/L Normal 3.5-5.1 [facility] ([place] Comment on above: Performed By: #### C BC, ADIFF, ANEU, TROP, GFR, CMP ####[address] [place], [place] [address] Sodium 135 mmol/L Low 136-146 [facility] ([place] Comment on above: Performed By: #### C BC, ADIFF, ANEU, TROP, GFR, CMP ####[address] [place], [place] [address] Bili Total 0.8 mg/dL Normal 0.2-1.0 [facility] ([place] Comment on above: Performed By: #### C BC, ADIFF, ANEU, TROP, GFR, CMP ####[address] [place] [address] BUN/Creatinine Ratio 14 ratio Normal 7-27 [facility] ([place] Comment on above: Performed By: #### C BC, ADIFF, ANEU, TROP, GFR, CMP ####[address] [place] [address] Calcium 8.9 mg/dL Normal 8.4-10.2 [facility] ([place] Comment on above: Performed By: #### C BC, ADIFF, ANEU, TROP, GFR, CMP ####[address] [place] [address] CO2 23 mmol/L Normal 23-31 [facility] ([place] Comment on above: Performed By: #### C BC, ADIFF, ANEU, TROP, GFR, CMP ####[address] [place] [address] Creatinine 1.0 mg/dL Normal 0.6-1.2 [facility] ([place] Comment on above: Performed By: #### C BC, ADIFF, ANEU, TROP, GFR, CMP ####[address] [place] [id number] Albumin 4.3 G/dL Normal 3.4-4.8 [facility] ([place] Comment on above: Performed By: #### C BC, ADIFF, ANEU, TROP, GFR, CMP ####[address] [place] [address] Urea nitrogen 13.9 mg/dL Normal 7.0-18.0 [facility] ([place] Comment on above: Performed By: #### C BC, ADIFF, ANEU, TROP, GFR, CMP ####[address] [place] [address] [address] HEAD OR BRAIN W/O CONTRAS Ton 09-12-2016 CT HEAD OR BRAIN W/O CONTRAST ORIGINALCT HEAD OR BRAIN W/O CONTRAST CLINICAL STATEMENT: pain TECHNIQUE: Axial CT images from skull base to vertex without IV contrast. This exam was performed according to our departmental dose optimization program, and includes the following measures where applicable: automated exposure control, adjustment of the mAs and/or kVp according to patient size and/or exam, and an iterative reconstruction algorithm. COMPARISON: None. FINDINGS: There is no intracranial hemorrhage, mass, mass effect or abnormal extra-axial fluid collection. No evidence of an acute territorial infarct. The ventricles are normal. The skull base and calvarium demonstrate no abnormality. The included paranasal sinuses and mastoid air cells are clear. IMPRESSION: No acute intracranial abnormality. I have personally reviewed the images of this examination and agree with the resident's findings and interpretation. Interpreted By: Emiliano Ratliffreliminary Report By: Jacoby Bess MDElectronically Signed By: Emiliano Ratliff MD Dictated Date: 09/12/2016 5:31:15 PM Prelim Date: 09/12/2016 5:32:01 PM Sign Date: 09/12/2016 5:53:51 PM Normal [facility] ([place]) GFRon 09-12-2016 eGFR (non-black) mL/min/{1.73_m2} Normal [facility] ([place]) Comment on above: Result Comment: GFR Population mean for , Non- Americans Ages 20-29 = 116 mL/min/1.73 sq.m. Ages 30-39 = 107 mL/min/1.73 sq.m. Ages 40-49 = 99 mL/min/1.73 sq.m. Ages 50-59 = 93 mL/min/1.73 sq.m. Ages 60-69 = 85 mL/min/1.73 sq.m. Ages 70+ = 75 mL/min/1.73 sq.m.Chronic Kidney Disease: Less than 60 mL/min/1.73 square metersEnd Stage Renal Disease: Less than 15 mL/min/1.73 square meters Performed By: #### C BC, ADIFF, ANEU, TROP, GFR, CMP ####[address] [place], [place] [address] eGFR (non-black) 91 ml/min/1.73sqm Normal A [facility] ([place]) Comment on above: Result Comment: GFR Population mean for , Non- Americans Ages 20-29 = 116 mL/min/1.73 sq.m. Ages 30-39 = 107 mL/min/1.73 sq.m. Ages 40-49 = 99 mL/min/1.73 sq.m. Ages 50-59 = 93 mL/min/1.73 sq.m. Ages 60-69 = 85 mL/min/1.73 sq.m. Ages 70+ = 75 mL/min/1.73 sq.m.Chronic Kidney Disease: Less than 60 mL/min/1.73 square metersEnd Stage Renal Disease: Less than 15 mL/min/1.73 square meters Performed By: #### C BC, ADIFF, ANEU, TROP, GFR, CMP ####[address] [place], [place] [address] Patient Summary Documentson 09-12-2016 Patient Summary Documents Normal [facility] [place]) TROPon 09-12-2016 Troponin I.cardiac mass conc ng/mL Normal 0.00-0.30 [facility] ([place]) Comment on above: Result Comment: Belo w measuring range>=0.30 Consistent with cardiac damage, increased clinical risk and possibility of myocardial infarction. Serial measurements, clinical history, appropriate symptoms and/or ECG changes may help assess possibility of SC.*Other non-acute coronary syndrome conditions such as CHF, myocarditis, pulmonary emboli, sepsis and cardiac surgery could result in myocardial damage and increased troponin levels. Performed By: #### C BC, ADIFF, ANEU, TROP, GFR, CMP ####[address] [place], [place] [address] UAon 09-12-2016 UA Appear CLEAR Normal [facility] ([place] Comment on above: Performed By: #### U A, UAMICAO ####[address] [place], [place] [address] UA Blood Negative Normal [facility] ([place] Comment on above: Performed By: #### U A, UAMICAO ####[address] [place], [place] [address] UA Leuk Est Negative [facility] ([place]) Comment on above: Performed By: #### U A, UAMICAO ####[address] [place], [place] [address] UA Nitrite Negative [facility] ([place]) Comment on above: Performed By: #### U A, UAMICAO ####[address] [place], [place] [address] UA pH 5.5 [facility]) Comment on above: Performed By: #### U A, UAMICAO ####aMcy [address] [place], [place] [address] UA Protein Negative [facility]) Comment on above: Performed By: #### U A, UAMICAO ####[address] [place] [address] UA Spec Grav 1.020 [facility]) Comment on above: Performed By: #### U A, UAMICAO ####[address] [place] [address] UA Specimen Type Clean Catch [facility] ([place]) Comment on above: Performed By: #### U A, UAMICAO ####[address] [place] [address] UA Urobilinogen 0.2 E.U./dL [facility] ([place]) Comment on above: Performed By: #### U A, UAMICAO ####[address] [place] [address] Urine, color YELLOW [facility] ([place]) Comment on above: Performed By: #### U A, UAMICAO ####[address] [place] [address] Urine, glucose Negative [facility] ([place]) Comment on above: Performed By: #### U A, UAMICAO ####[address] [place] [address] Urine, ketones presence 40 mg/dL Abnormal Negative A [facility] ([place]) Comment on above: Performed By: #### U A, UAMICAO ####[address] [place], [place] [address] Urine, urobilinogen Negative Normal [facility] ([place]) Comment on above: Performed By: #### U TACO Valladares ####[address] [place], [place] [address] XR CHEST 1 VIEWon 09-12-2016 XR CHEST 1 VIEW ORIGINALXR CHEST 1 VIEW PORTABLE AP TIME: 5:16 PM CLINICAL STATEMENT: Cough/Fever Suspect Pneumonia COMPARISON: None FINDINGS: The cardiomediastinal contours are normal. There is no consolidation, vascular congestion, pleural effusion, or pneumothorax. No displaced fractures are identified. IMPRESSION: No acute radiographic findings. I have personally reviewed the images of this examination and agree with the resident's findings and interpretation. Interpreted By: Emiliano Ratliffreliminary Report By: Jacoby Bess MDElectronically Signed By: Emiliano Ratliff MD Dictated Date: 09/12/2016 5:30:33 PM Prelim Date: 09/12/2016 5:30:59 PM Sign Date: 09/12/2016 5:55:03 PM Normal [facility] [place]) Vital Signs Date Time Vital Sign Value Performing Clinician Bami luz 07-27-2024 17:38-0400 Body height 172.[address] Kwabena Menjivar MD Work Phone: [facility] 05-25-2024 13:01-0400 Body height 172.[address] Kwabena Menjivar MD Work Phone: [facility] 05-25-2024 13:01-0400 Body mass index (BMI) [Ratio] 23.1 kg/m2 Dr. Kwabena Menjivar MD Work Phone: [facility] 05-25-2024 13:01-0400 Body weight 68.[address] Kwabena Menjivar MD Work Phone: [facility] 05-25-2024 13:01-0400 Diastolic blood pressure 52 mm[Hg] Dr. Kwabena Menjivar MD Work Phone: [facility] 05-25-2024 13:01-0400 Heart rate 73 /min Dr. Kwabena Menjivar MD Work Phone: [facility] 05-25-2024 13:01-0400 Respiratory rate 16 /min Dr. Kwabena Menjivar MD Work Phone: [facility] 05-25-2024 13:01-0400 SaO2% (BldA) [Mass fraction] 96 % Dr. Kwabena Menjivar MD Work Phone: [facility] 05-25-2024 13:01-0400 Systolic blood pressure 82 mm[Hg] Dr. Kwabena Menjivar MD Work Phone: 8(328)267-429666 [place] [address] 05-20-2024 09:20-0400 Diastolic blood pressure 67 mm[Hg] Dr. Kwabena Menjivar MD Work Phone: 8(641)159-486288 [place] [address] 05-20-2024 09:20-0400 Heart rate 59 /min Dr. Kwabena Menjivar MD Work Phone: 2(978)777-112988 [place] [address] 05-20-2024 09:20-0400 Systolic blood pressure 136 mm[Hg] Dr. Kwabena Menjivar MD Work Phone: 2(445)772-759025 [address] 05-20-2024 06:00-0400 Body mass index (BMI) [Ratio] 24.3 kg/m2 Dr. Kwabena Menjivar MD Work Phone: 4(408)656-379888 [place] [address] 05-20-2024 06:00-0400 Body temperature 97.2 [degF] Dr. Kwabena Menjivar MD Work Phone: [facility] 05-20-2024 06:00-0400 Body weight [address] Kwabena Menjivar MD Work Phone: [facility] 05-20-2024 06:00-0400 Respiratory rate 16 /min Dr. Kwabena Menjivar MD Work Phone: [facility] 05-20-2024 06:00-0400 SaO2% (BldA) [Mass fraction] 97 % Dr. Kwabena Menjivar MD Work Phone: 7(702)265-236788 [place] [address] 05-12-2024 08:43-0400 Body height [address] Kwabena Menjivar MD Work Phone: [facility] 04-27-2024 14:23-0400 Body temperature 97.8 [degF] Dr. Kwabena Menjivar MD Work Phone: [facility] 04-27-2024 14:23-0400 Diastolic blood pressure 64 mm[Hg] Dr. Kwabena Menjivar MD Work Phone: [facility] 04-27-2024 14:23-0400 Heart rate 65 /min Dr. Kwabena Menjivar MD Work Phone: 8(014)975-285388 [place] [address] 04-27-2024 14:23-0400 Respiratory rate 18 /min Dr. Kwabena Menjivar MD Work Phone: 2(739)915-401288 [place] [address] 04-27-2024 14:23-0400 SaO2% (BldA) [Mass fraction] 92 % Dr. Kwabena Menjivar MD Work Phone: [facility] 04-27-2024 14:23-0400 Systolic blood pressure 126 mm[Hg] Dr. Kwabena Menjivar MD Work Phone: [facility] 04-26-2024 18:24-0400 Inhaled oxygen flow rate 3 L/min Dr. Kwabena Menjivar MD Work Phone: 7(057)183-659188 [place] [address] 04-26-2024 15:54-0400 Body height 172.[address] Kwabena Menjivar MD Work Phone: [facility] 04-26-2024 15:54-0400 Body mass index (BMI) [Ratio] 25.3 kg/m2 Dr. Kwabena Menjivar MD Work Phone: [facility] 04-26-2024 15:54-0400 Body weight 75.[address] Kwabena Menjivar MD Work Phone: [facility] 04-19-2024 13:05-0400 Body temperature 97.8 [degF] Dr. Kwabena Menjivar MD Work Phone: [facility] 04-19-2024 13:05-0400 Diastolic blood pressure 75 mm[Hg] Dr. Kwabena Menjivar MD Work Phone: [facility] 04-19-2024 13:05-0400 Heart rate 65 /min Dr. Kwabena Menjivar MD Work Phone: 0(327)337-797225 [address] 04-19-2024 13:05-0400 Respiratory rate 16 /min Dr. Kwabena Menjivar MD Work Phone: 9(734)834-930925 [address] 04-19-2024 13:05-0400 SaO2% (BldA) [Mass fraction] 99 % Dr. Kwabena Menjivar MD Work Phone: 6(536)624-516866 [place] [address] 04-19-2024 13:05-0400 Systolic blood pressure 133 mm[Hg] Dr. Kwabena Menjivar MD Work Phone: 6(865)360-216788 [place] [address] 04-19-2024 10:47-0400 Body height 172.[address] Kwabena Menjivar MD Work Phone: 7(886)382-500025 [address] 04-19-2024 10:47-0400 Body mass index (BMI) [Ratio] 23.9 kg/m2 Dr. Kwabena Menjivar MD Work Phone: 5(363)425-169525 [address] 04-19-2024 10:47-0400 Body weight 71.[address] Kwabena Menjivar MD Work Phone: 3(764)766-841125 [address] 02-26-2024 12:31-0500 Body temperature 98.6 [degF] Dr. Kwabena Menjivar MD Work Phone: 9(456)004-572825 [address] 02-26-2024 12:31-0500 Diastolic blood pressure 85 mm[Hg] Dr. Kwabena Menjivar MD Work Phone: 1(663)053-015825 [address] 02-26-2024 12:31-0500 Heart rate 62 /min Dr. Kwabena Menjivar MD Work Phone: 7(808)699-549525 [address] 02-26-2024 12:31-0500 Respiratory rate 16 /min Dr. Kwabena Menjivar MD Work Phone: [facility] 02-26-2024 12:31-0500 SaO2% (BldA) [Mass fraction] 99 % Dr. Kwabena Menjivar MD Work Phone: [facility] 02-26-2024 12:31-0500 Systolic blood pressure 164 mm[Hg] Dr. Kwabena Menjivar MD Work Phone: [facility] 02-26-2024 09:48-0500 Body mass index (BMI) [Ratio] 25.8 kg/m2 Dr. Kwabena Menjivar MD Work Phone: [facility] 02-26-2024 09:48-0500 Body weight 77.[address] Kwabena Menjivar MD Work Phone: [facility] Encounters Encounter Date Encounter Type Care Provider Facility Start: 08-03-2024 End: 08-03-2024 Dr. David Granados MD -[facility] Start: 08-03-2024 End: 08-03-[address] Kwabena Menjivar MD Work Phone: [facility] Work Phone: Start: 07-20-2024 End: 07-20-[address] Kwabena Menjivar MD Work Phone: [facility] Work Phone: Start: 07-20-2024 End: 07-20-2024 Dr. Kwabena Menjivar MD -Laboratory [facility] Start: 07-20-2024 End: 07-20-2024 ambulatory Kwabena Menjivar Facility:[facility] Start: 07-11-2024 ambulatory Kwabena Fuller lity:[facility] Start: 07-11-2024 Keven Nnuo Start: 07-04-2024 ambulatory Kwabena Fuller lity:[facility] Start: 07-04-2024 Keven Nuno Start: 06-27-2024 ambulatory Sonia Hickman ty:[facility] Start: 06-26-2024 ambulatory Kwabena Fuller lity:[facility] Start: 06-26-2024 Keven AWAD L Rubén Nuno Start: 06-19-2024 ambulatory Kwabena Fuller lity:[facility] Start: 06-19-2024 Keven Nuno Start: 06-12-2024 ambulatory Keven Etienne OLS Fa cility:[facility] Start: 06-12-2024 Keven Montana Renuka Nuno Start: 06-05-2024 ambulatory Keven KIRKPATRICK Fa cility:[facility] Start: 06-05-2024 Keven Nuno Start: 06-01-2024 End: 06-01-2024 Dr. Ciro Diego MD -[facility] Work Phone: Start: 06-01-2024 End: 06-01-2024 ambulatory Ciro Diego Facility[place] Start: 05-30-2024 End: 05-30-[address] Kwabena Menjivar MD Work Phone: [facility] Work Phone: Start: 05-30-2024 End: 05-30-2024 Angelika LAUREN -[facility] Work Phone: Start: 05-29-2024 ambulatory Keven KIRKPATRICK Fa cility:[facility] Start: 05-29-2024 Registered Referred Keven MontanaRenuka Nuno Start: 05-29-2024 Keven Nuno Start: 05-25-2024 End: 05-25-2024 Patient encounter procedure Sonia LAUREN -[facility] Work Phone: Start: 05-25-2024 End: 05-25-[address] Kwabena Menjivar MD Work Phone: [facility] Work Phone: Start: 05-25-2024 End: 05-25-2024 Sonia Isbell NP-C -Radiology [facility] Work Phone: Start: 05-25-2024 End: 05-25-2024 Patient encounter procedure Sonia Isbell NP-C -[facility] Work Phone: Start: 05-25-2024 End: 05-25-2024 Sonia Isbell NP-C -[facility] Work Phone: Start: 05-25-2024 End: 05-25-2024 ambulatory Sonia Isbell Facility:[facility] Start: 05-25-2024 End: 05-25-2024 ambulatory Sonia Isbell Facility:[facility] Start: 05-23-2024 End: 05-23-[address] Kwabena Menjivar MD Work Phone: [facility] Work Phone: Start: 05-23-2024 End: 05-23-2024 Dr. Keven Etienne MD -[facility] Work Phone: Start: 05-22-2024 End: 05-22-[address] Kwabena Menjivar MD Work Phone: [facility] Work Phone: Start: 05-22-2024 Registered Referred Keven Etienne MD -Renuka Nuno Start: 05-22-2024 End: 05-22-2024 Keven MontanaRenuka Nuon Start: 05-11-2024 Non-patient / Non-visit Dr. Ciro Diego MD -[facility] Start: 05-11-2024 Dr. Ciro Diego MD -[facility] Start: 05-09-2024 Non-patient / Non-visit Dr. Corazon Wright DO [facility] Work Phone: Start: 05-09-2024 Dr. Corazon Wright [facility] Work Phone: Start: 05-08-2024 Non-patient / Non-visit Dr. Corazon Wright [facility] Work Phone: Start: 05-08-2024 Dr. Corazon Wright [facility] Work Phone: Start: 05-05-2024 Non-patient / Non-visit Dr. Corazon Wright [facility] Work Phone: Start: 05-05-2024 Dr. Corazon Wright [facility] Work Phone: Start: 05-03-2024 Non-patient / Non-visit Dr. Corazon Wright [facility] Work Phone: Start: 05-03-2024 Dr. Corazon Wright [facility] Work Phone: Start: 05-02-2024 Non-patient / Non-visit Dr. Corazon Wright [facility] Work Phone: Start: 05-02-2024 Dr. Corazon Wright [facility] Work Phone: Start: 05-01-2024 Non-patient / Non-visit Dr. Corazon Wright [facility] Work Phone: Start: 05-01-2024 Dr. Corazon Wright [facility] Work Phone: Start: 04-30-2024 End: 04-30-2024 ambulatory [facility] Facility:[facility] Start: 04-30-2024 End: 04-30-2024 Non-patient / Non-visit Dr. David Granados MD [facility] Work Phone: Start: 04-30-2024 End: 04-30-2024 Dr. David Granados MD [facility] Work Phone: Start: 04-28-2024 Non-patient / Non-visit FeliciaTara Wright [facility] Work Phone: Start: 04-28-2024 Corazon Julian emmaclaudio Kyle [facility] Inpatient Physicians Work Phone: Start: 04-27-2024 Non-patient / [facility] Start: 04-27-2024 [facility] Start: 04-27-2024 ambulatory Corazon Wright [facility] Start: 04-27-2024 End: 05-20-2024 Evaluation and management of inpatient Felicia Sementi DO -Rehab Unit Work Phone: Start: 04-27-2024 End: 05-20-2024 Dr. Corazon Wright DO -Rehab Unit Work Phone: Start: 04-27-2024 Non-patient / Non-visit [facility] Work Phone: Start: 04-27-2024 Dr. Harish Baxter MD [facility] Inpatient Physicians Work Phone: Start: 04-26-2024 Non-patient / Non-visit Dr. Harish Baxter MD [facility] Inpatient Physicians Work Phone: Start: 04-26-2024 Dr. Harish Nicolas [facility] Inpatient Physicians Work Phone: Start: 04-26-2024 Non-patient / [facility] Start: 04-26-2024 [facility] Start: 04-25-2024 Non-patient / Non-visit Dr. Harish Baxter MD [facility] Inpatient Physicians Work Phone: Start: 04-25-2024 Dr. Harish Nicolas [facility] Inpatient Physicians Work Phone: Start: 04-24-2024 Non-patient / Non-visit Dr. Harish Baxter MD -[place] [facility] Work Phone: Start: 04-24-2024 Dr. Harish Baxter MD -[facility] Inpatient Physicians Work Phone: Start: 04-24-2024 End: 04-24-2024 ambulatory [facility] Facility:[facility] Start: 04-24-2024 End: 04-24-2024 Non-patient / Non-visit Dr. David Granados MD -[facility] Work Phone: Start: 04-24-2024 End: 04-24-2024 Dr. David Granados MD -[facility] Work Phone: Start: 04-23-2024 Non-patient / Non-visit Dr. Keanu Alfred [facility] Inpatient Physicians Work Phone: Start: 04-23-2024 Dr. Keanu Alfred DO [facility] Inpatient Physicians Work Phone: Start: 04-22-2024 Non-patient / Non-visit Dr. Keanu Alfred DO [facility] Inpatient Physicians Work Phone: Start: 04-22-2024 Dr. [facility] Work Phone: Start: 04-21-2024 Non-patient / Non-visit Dr. Ciro Diego MD -[facility] Start: 04-21-2024 Dr. Ciro Diego MD [facility] Start: 04-21-2024 ambulatory [facility] Start: 04-21-2024 Non-patient / Non-visit Dr. Keanu Alfred DO [facility] Inpatient Physicians Work Phone: Start: 04-21-2024 Dr. Keanu [facility] Work Phone: Start: 04-20-2024 [facility] Start: 04-20-2024 End: 04-27-2024 Evaluation and management of inpatient Dr. Harish Baxter MD -[facility] Work Phone: Start: 04-20-2024 End: 04-27-2024 Dr. Harish Baxter MD -[facility] Work Phone: Start: 04-20-2024 Non-patient / Non-visit Dr. Keanu Alfred DO [facility] Inpatient Physicians Work Phone: Start: 04-20-2024 Dr. Keanu Alfred [facility] Inpatient Physicians Work Phone: Start: 04-19-2024 ambulatory [facility] [address] lity:[facility] Start: 04-19-2024 Evaluation and management of inpatient Dr. Keanu Alfred DO -[facility] Care Unit Work Phone: Start: 04-19-2024 Non-patient / Non-visit Dr. Danette Sargent MD -[facility] Start: 04-19-[address] Akhil Menjivar MD Work Phone: [facility] Work Phone: Start: 04-19-2024 Dr. Danette Sargent MD -[facility] Start: 03-08-2024 End: 03-08-[address] David Granados MD -[facility] Start: 03-08-2024 End: 03-08-2024 ambulatory [facility] Facility[facility] Start: 02-26-2024 End: 02-26-2024 Emergency department patient visit Dr. Asher Flores MD -Emergency Department Work Phone: Start: 10-22-2022 End: 10-22-2022 ambulatory [facility] Work Phone: Start: 10-22-2022 End: 10-22-2022 Patient encounter procedure [facility] Work Phone: Start: 10-14-2022 End: 10-14-2022 ambulatory [facility] Work Phone: Start: 10-14-2022 End: 10-14-2022 Discharged Recurring [facility]-Physical Therapy Work Phone: Start: 08-24-2022 End: 08-24-2022 ambulatory [facility] Work Phone: Start: 08-24-2022 End: 08-24-2022 Patient encounter procedure [facility]-Radiology, [place] Work Phone: Start: 09-14-2016 End: 09-15-2016 Emergency department patient visit BAONELL CERVANTES Facility:[facility] Start: 09-12-2016 End: 09-12-2016 Emergency department patient visit JORGE L Orellana ANTHONYJacquelyn Facility:[facility] Procedures Date Procedure Procedure Detail Performing Clinician Start: 07-20-2024 Plain x-ray of wrist Dr Evette Menjivar MD Work Phone: Start: 07-20-2024 Blood count smear mc rscp w/mnl difrntl wbc count Dr. Kwabena Menjivar MD Work Phone: Start: 07-20-2024 Mean corpuscular hemoglobin concentration determination Dr. Kwabena Menjivar MD Work Phone: Start: 07-20-2024 Nucleated red blood cell count procedure Dr. Kwabena Menjivar MD Work Phone: Start: 07-20-2024 Platelet mean volume determination Dr. Kwabena Menjivar MD Work Phone: Start: 07-20-2024 Total cholesterol:HD L ratio measurement Dr. Kwabena Menjivar MD Work Phone: Start: 07-20-2024 Vitamin D, 25-hydrox y measurement Dr. Kwabena Menjivar MD Work Phone: Start: 07-11-2024 Blood count smear mc rscp w/mnl difrntl wbc count Dr. Kwabena Menjivar MD Work Phone: Start: 07-11-2024 Mean corpuscular hemoglobin concentration determination Dr. Kwabena Menjivar MD Work Phone: Start: 07-11-2024 Nucleated red blood cell count procedure Dr. Kwabena Menjivar MD Work Phone: Start: 07-11-2024 Platelet mean volume determination Dr. Kwabena Menjivar MD Work Phone: Start: 07-04-2024 Blood count smear mc rscp w/mnl difrntl wbc count Dr. Kwabena Menjivar MD Work Phone: Start: 07-04-2024 Mean corpuscular hemoglobin concentration determination Dr. Kwabena Menjivar MD Work Phone: Start: 07-04-2024 Nucleated red blood cell count procedure Dr. Kwabena Menjivar MD Work Phone: Start: 07-04-2024 Platelet mean volume determination Dr. Kwabena Menjivar MD Work Phone: Start: 06-26-2024 Blood count smear mc rscp w/mnl difrntl wbc count Dr. Kwabena Menjivar MD Work Phone: Start: 06-26-2024 Mean corpuscular hemoglobin concentration determination Dr. Kwabena Menjivar MD Work Phone: Start: 06-26-2024 Nucleated red blood cell count procedure Dr. Kwabena Menjivar MD Work Phone: Start: 06-26-2024 Platelet mean volume determination Dr. Kawbena Menjivar MD Work Phone: Start: 06-19-2024 Blood count smear mc rscp w/mnl difrntl wbc count Dr. Kwabena Menjivar MD Work Phone: Start: 06-19-2024 Mean corpuscular hemoglobin concentration determination Dr. Kwabena Menjivar MD Work Phone: Start: 06-19-2024 Nucleated red blood cell count procedure Dr. Kwabena Menjivar MD Work Phone: Start: 06-19-2024 Platelet mean volume determination Dr. Kwabena Menjivar MD Work Phone: Start: 06-12-2024 Blood count smear mc rscp w/mnl difrntl wbc count Dr. Kwabena Menjivar MD Work Phone: Start: 06-12-2024 Mean corpuscular hemoglobin concentration determination Dr. Kwabena Menjivar MD Work Phone: Start: 06-12-2024 Nucleated red blood cell count procedure Dr. Kwabena Menjivar MD Work Phone: Start: 06-12-2024 Platelet mean volume determination Dr. Kwabena Menjivar MD Work Phone: Start: 06-05-2024 Blood count smear mc rscp w/mnl difrntl wbc count Dr. Kwabena Menjivar MD Work Phone: Start: 06-05-2024 Mean corpuscular hemoglobin concentration determination Dr. Kwabena Menjivar MD Work Phone: Start: 06-05-2024 Nucleated red blood cell count procedure Dr. Kwabena Menjivar MD Work Phone: Start: 06-05-2024 Platelet mean volume determination Dr. Kwabena Menjivar MD Work Phone: Start: 06-01-2024 X-ray of cervical spine Dr. Kwabena Menjivar MD Work Phone: Start: 05-29-2024 Blood count smear mc rscp w/mnl difrntl wbc count Dr. Kwabena Menjivar MD Work Phone: Start: 05-29-2024 Mean corpuscular hemoglobin concentration determination Dr. Kwabena Menjivar MD Work Phone: Start: 05-29-2024 Nucleated red blood cell count procedure Dr. Kwabena Menjivar MD Work Phone: Start: 05-29-2024 Platelet mean volume determination Dr. Kwabena Menjivar MD Work Phone: Start: 05-25-2024 Plain X-ray abdomen Dr. Kwabena Menjivar MD Work Phone: Start: 05-22-2024 Blood count smear mc rscp w/mnl difrntl wbc count Dr. Kwabena Menjivar MD Work Phone: Start: 05-22-2024 Mean corpuscular hemoglobin concentration determination Dr. Kwabena Menjivar MD Work Phone: Start: 05-22-2024 Nucleated red blood cell count procedure Dr. Kwabena Menjivar MD Work Phone: Start: 05-22-2024 Platelet mean volume determination Dr. Kwabena Menjivar MD Work Phone: Start: 05-11-[address] Kwabena Menjivar MD Work Phone: Start: 05-11-2024 Mean corpuscular hemoglobin concentration determination Dr. Kwabena Menjivar MD Work Phone: Start: 05-11-2024 Platelet mean volume determination Dr. Kwabena Menjivar MD Work Phone: Start: 05-10-2024 X-ray of cervical spine Dr. Kwabena Menjivar MD Work Phone: Start: 05-10-[address] Cal Menjivar MD Work Phone: Start: 05-10-2024 Urine microscopy: re d cells Dr. Kwabena Menjivar MD Work Phone: Start: 05-10-2024 Urnls dip stick/tabl et reagent auto microscopy Dr. Kwabena Menjivar MD Work Phone: Start: 05-09-[address] Reynaldo Menjivar MD Work Phone: Start: 05-01-2024 Serum inorganic phos phate measurement Dr. Kwabena Menjivar MD Work Phone: Start: 04-29-2024 Measurement of occul t blood in stool specimen using immunoassay Dr. Kwabena Menjivar MD Work Phone: Start: 04-28-2024 Prostate specific an tigen measurement Dr. Kwabena Menjivar MD Work Phone: Start: 04-27-[address] Cal Menjivar MD Work Phone: Start: 04-27-2024 X-ray of cervical spine Dr. Kwabena Menjivar MD Work Phone: Start: 04-27-2024 Blood count smear mc rscp w/mnl difrntl wbc count Dr. Kwabena Menjivar MD Work Phone: Start: 04-27-[address] Kwabena Menjivar MD Work Phone: Start: 04-27-2024 Mean corpuscular hemoglobin concentration determination Dr. Kwabena Menjivar MD Work Phone: Start: 04-27-2024 Nucleated red blood cell count procedure Dr. Kwabena Menjivar MD Work Phone: Start: 04-27-2024 Platelet mean volume determination Dr. Kwabena Menjivar MD Work Phone: Start: 04-26-2024 Fluoroscopic guidance Jennie Menjivar MD Work Phone: Start: 04-26-2024 X-ray of cervical spine Dr. Kwabena Menjivar MD Work Phone: Start: 04-26-2024 Cervical arthrodesis by anterior technique Dr. Kwabena Menjivar MD Work Phone: Start: 04-19-2024 MRI of brain without contrast Dr. Kwabena Menjivar MD Work Phone: Start: 04-19-2024 MRI of cervical spine Jennie Menjivar MD Work Phone: Start: 04-19-2024 Plain chest X-ray Dr. Bryce Menjivar MD Work Phone: Start: 04-19-2024 CT angiography of he ad and neck Dr. Kwabena Menjivar MD Work Phone: Start: 04-19-2024 Calculation of international normalized ratio Dr. Kwabena Menjivar MD Work Phone: Start: 04-19-[address] Reynaldo Menjivar MD Work Phone: Start: 04-19-2024 CT of head without contrast Dr. Kwabena Menjivar MD Work Phone: Start: 03-08-2024 X-ray of cervical spine Dr. Kwabena Menjivar MD Work Phone: Start: 02-26-2024 Plain X-ray of shoulder Dr. Kwabena Menjivar MD Work Phone: Start: 02-26-2024 X-ray of knee, four or more views Dr. Kwabena Menjivar MD Work Phone: Start: 02-26-2024 CT of head without contrast Dr. Kwabena Menjivar MD Work Phone: Start: 08-24-2022 Plain X-ray of shoulder Start: 08-24-2022 X-ray of cervical spine Plan of Treatment Date Care Activity Detail Author Start: 08-17-2024 ambulatory Facility:[facility] Start: 08-03-2024 X-ray of cervical spine [facility] Start: 08-03-2024 XR Cervical spine 2 or 3 Views [facility] Start: 05-25-2024 Patient referral [facility] Work Phone: Start: 05-20-2024 Patient discharge [facility] Start: 05-15-2024 [facility] Start: 05-12-2024 [facility] Start: 05-10-2024 [facility] Start: 05-09-2024 [facility] Start: 05-09-2024 End: 05-09-2024 [facility] Start: 05-08-2024 Introduction of urinary catheter [facility] Start: 05-08-2024 Urinary bladder training [facility] Start: 05-02-2024 [facility] Start: 05-01-2024 [facility] Start: 04-29-2024 [facility] Start: 04-28-2024 Application of intermittent pneumatic compression device [facility] Start: 04-27-2024 Speech therapy assessment [facility] Start: 04-27-2024 Scheduling [facility] Start: 04-27-2024 Wound care [facility] Start: 04-27-2024 Referral to service [facility] Start: 04-27-2024 Admission procedure [facility] Start: 04-27-2024 Measuring intake and output [facility] Start: 04-27-2024 Patient referral to dietitian [facility] Start: 04-27-2024 Vital signs measurements [facility] Start: 04-27-2024 End: 04-27-2024 [facility] Start: 04-27-2024 Referral to occupational therapist [facility] Start: 04-27-2024 Catheterization of vein [facility] Start: 04-27-2024 Patient discharge [facility] Start: 04-27-2024 Speech therapy assessment [facility] Start: 04-26-2024 [facility] Start: 04-26-2024 Application of device [facility] Start: 04-26-2024 Referral to occupational therapist [facility] Start: 04-26-2024 Assessment of risk of venous thromboembolism [facility] Start: 04-26-2024 Following clinical pathway protocol [facility] Start: 04-26-2024 Introduction of urinary catheter [facility] Start: 04-26-2024 Measuring intake and output [facility] Start: 04-26-2024 Neurovascular assessment [facility] Start: 04-26-2024 Oxygen therapy [facility] Start: 04-26-2024 Patient education [facility] Start: 04-26-2024 Provision of activity privileges [facility] Start: 04-26-2024 Referral to service [facility] Start: 04-26-2024 Taking patient vital signs [facility] Start: 04-26-2024 [facility] Start: 04-24-2024 Application of intermittent pneumatic compression device [facility] Start: 04-20-2024 Admission procedure [facility] Start: 04-20-2024 Consultation [facility] Start: 04-20-2024 [facility] Start: 04-19-2024 Following clinical pathway protocol [facility] Start: 04-19-2024 Assessment of risk of venous thromboembolism [facility] Start: 04-19-2024 Consultation [facility] Start: 04-19-2024 Insertion of catheter into peripheral vein [facility] Start: 04-19-2024 Measuring intake and output [facility] Start: 04-19-2024 Providing care according to standard [facility] Start: 04-19-2024 Provision of activity privileges [facility] Start: 04-19-2024 Referral to occupational therapist [facility] Start: 04-19-2024 Referral to service [facility] Start: 04-19-2024 [facility] Start: 04-19-2024 Hospital admission, emergency, from emergency room, medical nature [facility] Start: 04-19-2024 Admission procedure [facility] Start: 04-19-2024 [facility] Start: 04-19-2024 Oxygen therapy [facility] Start: 04-19-2024 End: 04-19-2024 [facility] Start: 04-19-2024 Patient referral to dietitian [facility] Start: 04-19-2024 [facility] Start: 02-26-2024 [facility] Start: 10-22-2022 [facility] Mitotic spindle appa ratus Ab [Titer] in Serum or Plasma [facility] Neuronal nuclear Ab [Presence] in Serum by Immunofluorescence [facility] Nuclear Ab [Titer] i n Serum by Immunofluorescence [facility] Patient Education ED Contusion, Upper Extremity ED Head Injury (Adult) [facility] Work Phone: Patient referral [facility] Work Phone: Serum HEAVEN pattern [facility] Speckled nuclear Ab pattern [Titer] in Serum [facility] Troponin T.cardiac [Mass/volume] in Serum or Plasma by High sensitivity method [facility] Troponin T.cardiac [Mass/volume] in Serum or Plasma by High sensitivity method [facility] Payers Date Payer Category Payer Self-pay [id number] 2024 Private Health Insurance [id number] 2016 Medicare [id number] 2006 Medicare [id number] Unknown [id number] 2.16.8 40.1.841195.3.579.2.462 Unknown [id number] 2.16.8 40.1.188646.3.579.2.462 Unknown [id number] 2.16.8 40.1.299097.3.579.2.462 Unknown [id number] 2.16.8 40.1.012760.3.579.2.462 Unknown [id number] 2.16.8 40.1.528783.3.579.2.462 Unknown [id number] 2.16.8 40.1.085060.3.579.2.462 Unknown [id number] 2.16.8 40.1.379255.3.579.2.462 Unknown [id number] 2.16.8 40.1.679213.3.579.2.462 Unknown [id number] 2.16.8 40.1.431786.3.579.2.462 Unknown [id number] 2.16.8 40.1.347825.3.579.2.462 Unknown [id number] 2.16.8 40.1.789310.3.579.2.462 Unknown [id number] 2.16.8 40.1.229610.3.579.2.462 Unknown [id number] 2.16.8 40.1.128244.3.579.2.462 Unknown [id number] 2.16.8 40.1.474603.3.579.2.462 Unknown [id number] 2.16.8 40.1.810564.3.579.2.462 Unknown [id number] 2.16.8 40.1.279706.3.579.2.462 Unknown [id number] 2.16.8 40.1.120689.3.579.2.462 Unknown [id number] 2.16.8 40.1.065222.3.579.2.462 Unknown [id number] 2.16.8 40.1.495026.3.579.2.462 Unknown [id number] 2.16.8 40.1.487058.3.579.2.462 Unknown [id number] 2.16.8 40.1.714685.3.579.2.462 Unknown [id number] 2.16.8 40.1.963183.3.579.2.462 Unknown [id number] 2.16.8 40.1.527134.3.579.2.462 Unknown [id number] 2.16.8 40.1.702734.3.579.2.462 Unknown [id number] 2.16.8 40.1.122095.3.579.2.462 Unknown [id number] 2.16.8 40.1.329272.3.579.2.462 Unknown [id number] 2.16.8 40.1.048793.3.579.2.462 Unknown [id number] 2.16.8 40.1.326506.3.579.2.462 Unknown [id number] 2.16.8 40.1.264349.3.579.2.462 Unknown [id number] 2.16.8 40.1.241287.3.579.2.462 Unknown [id number] 2.16.8 40.1.165666.3.579.2.462 Unknown [id number] 2.16.8 40.1.300870.3.579.2.462 Unknown [id number] 2.16.8 40.1.776968.3.579.2.462 Unknown [id number] 2.16.8 40.1.012494.3.579.2.462 Unknown [id number] 2.16.8 40.1.814732.3.579.2.462 Unknown [id number] 2.16.8 40.1.804271.3.579.2.462 Unknown [id number] 2.16.8 40.1.130269.3.579.2.462 Unknown [id number] 2.16.8 40.1.031192.3.579.2.462 Unknown [id number] 2.16.8 40.1.065730.3.579.2.462 Unknown [id number] 2.16.8 40.1.995622.3.579.2.462 Unknown [id number] 2.16.8 40.1.199725.3.579.2.462 Unknown [id number] 2.16.8 40.1.903989.3.579.2.462 Unknown [id number] 2.16.8 40.1.617810.3.579.2.462 Unknown [id number] 2.16.8 40.1.360329.3.579.2.462 Unknown [id number] 2.16.8 40.1.423979.3.579.2.462 Unknown [id number] 2.16.8 40.1.088279.3.579.2.462 Unknown [id number] 2.16.8 40.1.653614.3.579.2.462 Unknown [id number] 2.16.8 40.1.095129.3.579.2.462 Unknown [id number] 2.16.8 40.1.700435.3.579.2.462 Unknown [id number] 2.16.8 40.1.067966.3.579.2.462 Unknown [id number] 2.16.8 40.1.780829.3.579.2.462 Unknown [id number] 2.16.8 40.1.648689.3.579.2.462 Social History Date Type Detail Facility Start: 03-28-2021 Tobacco smoking stat [facility] Unknown if ever smoked [facility] Start: 1940 Sex Assigned At Male W [facility] Start: 04-19-2024 End: 07-27-2024 Tobacco smoking status NHIS Ex-smoker (finding) [facility] Start: 04-19-2024 End: 05-31-2024 Sex Male (finding) [facility] Medical Equipment Procedure Code Equipment Code Equipment Origin al Text Equipment Identifier Dates Discectomy, spine, cervical, anterior approach, with fusion 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) FDA Start: 04-26-2024 Discectomy, spine, cervical, anterior approach, with fusion medtronic rescue screw FDA Start: 04-26-2024 Discectomy, spine, cervical, anterior approach, with fusion medtronic rescue screw FDA Start: 04-26-2024 Discectomy, spine, cervical, anterior approach, with fusion medtronic rescue screw FDA Start: 04-26-2024 Discectomy, spine, cervical, anterior approach, with fusion medtronic rescue screw FDA Start: 04-26-2024 Discectomy, spine, cervical, anterior approach, with fusion [id number] FDA Start: 04-26-2024 Discectomy, spine, cervical, anterior approach, with fusion 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) FDA Start: 04-26-2024 Discectomy, spine, cervical, anterior approach, with fusion 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) FDA Start: 04-26-2024 Discectomy, spine, cervical, anterior approach, with fusion PUTTY,BONE 1CC DBX FDA Start: 04-26-2024 Discectomy, spine, cervical, anterior approach, with fusion medtronic 3 level plate FDA Start: 04-26-2024 Discectomy, spine, cervical, anterior approach, with fusion medtronic 4.0 fixed angle screw FDA Start: 04-26-2024 Discectomy, spine, cervical, anterior approach, with fusion medtronic 4.0 fixed angle screw FDA Start: 04-26-2024 Discectomy, spine, cervical, anterior approach, with fusion medtronic 4.0 fixed angle screw FDA Start: 04-26-2024 Discectomy, spine, cervical, anterior approach, with fusion medtronic 4.0 fixed angle screw FDA Start: 04-26-2024 Discectomy, spine, cervical, anterior approach, with fusion 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) FDA Start: 04-26-2024 Discectomy, spine, cervical, anterior approach, with fusion medtronic rescue screw FDA Start: 04-26-2024 Discectomy, spine, cervical, anterior approach, with fusion medtronic rescue screw FDA Start: 04-26-2024 Discectomy, spine, cervical, anterior approach, with fusion medtronic rescue screw FDA Start: 04-26-2024 Discectomy, spine, cervical, anterior approach, with fusion medtronic rescue screw FDA Start: 04-26-2024 Discectomy, spine, cervical, anterior approach, with fusion 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) FDA Start: 04-26-2024 Discectomy, spine, cervical, anterior approach, with fusion 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) FDA Start: 04-26-2024 Discectomy, spine, cervical, anterior approach, with fusion PUTTY,BONE 1CC DBX FDA Start: 04-26-2024 Discectomy, spine, cervical, anterior approach, with fusion medtronic 3 level plate FDA Start: 04-26-2024 Discectomy, spine, cervical, anterior approach, with fusion medtronic 4.0 fixed angle screw FDA Start: 04-26-2024 Discectomy, spine, cervical, anterior approach, with fusion medtronic 4.0 fixed angle screw FDA Start: 04-26-2024 Discectomy, spine, cervical, anterior approach, with fusion medtronic 4.0 fixed angle screw FDA Start: 04-26-2024 Discectomy, spine, cervical, anterior approach, with fusion medtronic 4.0 fixed angle screw FDA Start: 04-26-2024 Discectomy, spine, cervical, anterior approach, with fusion 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) FDA Start: 04-26-2024 Discectomy, spine, cervical, anterior approach, with fusion medtronic rescue screw FDA Start: 04-26-2024 Discectomy, spine, cervical, anterior approach, with fusion medtronic rescue screw FDA Start: 04-26-2024 Discectomy, spine, cervical, anterior approach, with fusion medtronic rescue screw FDA Start: 04-26-2024 Discectomy, spine, cervical, anterior approach, with fusion medtronic rescue screw FDA Start: 04-26-2024 Discectomy, spine, cervical, anterior approach, with fusion 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) FDA Start: 04-26-2024 Discectomy, spine, cervical, anterior approach, with fusion 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) FDA Start: 04-26-2024 Discectomy, spine, cervical, anterior approach, with fusion PUTTY,BONE 1CC DBX FDA Start: 04-26-2024 Discectomy, spine, cervical, anterior approach, with fusion medtronic 3 level plate FDA Start: 04-26-2024 Discectomy, spine, cervical, anterior approach, with fusion medtronic 4.0 fixed angle screw FDA Start: 04-26-2024 Discectomy, spine, cervical, anterior approach, with fusion medtronic 4.0 fixed angle screw FDA Start: 04-26-2024 Discectomy, spine, cervical, anterior approach, with fusion medtronic 4.0 fixed angle screw FDA Start: 04-26-2024 Discectomy, spine, cervical, anterior approach, with fusion medtronic 4.0 fixed angle screw FDA Start: 04-26-2024 Discectomy, spine, cervical, anterior approach, with fusion FDA Start: 04-26-2024 Discectomy, spine, cervical, anterior approach, with fusion FDA Start: 04-26-2024 Discectomy, spine, cervical, anterior approach, with fusion FDA Start: 04-26-2024 Discectomy, spine, cervical, anterior approach, with fusion FDA Start: 04-26-2024 Discectomy, spine, cervical, anterior approach, with fusion FDA Start: 04-26-2024 Discectomy, spine, cervical, anterior approach, with fusion FDA Start: 04-26-2024 Discectomy, spine, cervical, anterior approach, with fusion FDA Start: 04-26-2024 Discectomy, spine, cervical, anterior approach, with fusion FDA Start: 04-26-2024 Discectomy, spine, cervical, anterior approach, with fusion FDA Start: 04-26-2024 Discectomy, spine, cervical, anterior approach, with fusion FDA Start: 04-26-2024 Discectomy, spine, cervical, anterior approach, with fusion FDA Start: 04-26-2024 Discectomy, spine, cervical, anterior approach, with fusion FDA Start: 04-26-2024 Discectomy, spine, cervical, anterior approach, with fusion FDA Start: 04-26-2024 Discectomy, spine, cervical, anterior approach, with fusion FDA Start: 04-26-2024 Discectomy, spine, cervical, anterior approach, with fusion FDA Start: 04-26-2024 Discectomy, spine, cervical, anterior approach, with fusion FDA Start: 04-26-2024 Discectomy, spine, cervical, anterior approach, with fusion FDA Start: 04-26-2024 Discectomy, spine, cervical, anterior approach, with fusion FDA Start: 04-26-2024 Discectomy, spine, cervical, anterior approach, with fusion FDA Start: 04-26-2024 Discectomy, spine, cervical, anterior approach, with fusion FDA Start: 04-26-2024 Discectomy, spine, cervical, anterior approach, with fusion FDA Start: 04-26-2024 Discectomy, spine, cervical, anterior approach, with fusion FDA Start: 04-26-2024 Discectomy, spine, cervical, anterior approach, with fusion FDA Start: 04-26-2024 Discectomy, spine, cervical, anterior approach, with fusion FDA Start: 04-26-2024 Discectomy, spine, cervical, anterior approach, with fusion FDA Start: 04-26-2024 Discectomy, spine, cervical, anterior approach, with fusion FDA Start: 04-26-2024 Discectomy, spine, cervical, anterior approach, with fusion FDA Start: 04-26-2024 Discectomy, spine, cervical, anterior approach, with fusion FDA Start: 04-26-2024 Discectomy, spine, cervical, anterior approach, with fusion FDA Start: 04-26-2024 Discectomy, spine, cervical, anterior approach, with fusion FDA Start: 04-26-2024 Discectomy, spine, cervical, anterior approach, with fusion FDA Start: 04-26-2024 Discectomy, spine, cervical, anterior approach, with fusion FDA Start: 04-26-2024 Discectomy, spine, cervical, anterior approach, with fusion FDA Start: 04-26-2024 Discectomy, spine, cervical, anterior approach, with fusion FDA Start: 04-26-2024 Discectomy, spine, cervical, anterior approach, with fusion FDA Start: 04-26-2024 Discectomy, spine, cervical, anterior approach, with fusion FDA Start: 04-26-2024 Discectomy, spine, cervical, anterior approach, with fusion FDA Start: 04-26-2024 Discectomy, spine, cervical, anterior approach, with fusion FDA Start: 04-26-2024 Discectomy, spine, cervical, anterior approach, with fusion FDA Start: 04-26-2024 Discectomy, spine, cervical, anterior approach, with fusion FDA Start: 04-26-2024 Discectomy, spine, cervical, anterior approach, with fusion FDA Start: 04-26-2024 Discectomy, spine, cervical, anterior approach, with fusion FDA Start: 04-26-2024 Discectomy, spine, cervical, anterior approach, with fusion FDA Start: 04-26-2024 Discectomy, spine, cervical, anterior approach, with fusion FDA Start: 04-26-2024 Discectomy, spine, cervical, anterior approach, with fusion FDA Start: 04-26-2024 Discectomy, spine, cervical, anterior approach, with fusion FDA Start: 04-26-2024 Discectomy, spine, cervical, anterior approach, with fusion FDA Start: 04-26-2024 Discectomy, spine, cervical, anterior approach, with fusion FDA Start: 04-26-2024 Discectomy, spine, cervical, anterior approach, with fusion FDA Start: 04-26-2024 Discectomy, spine, cervical, anterior approach, with fusion FDA Start: 04-26-2024 Discectomy, spine, cervical, anterior approach, with fusion FDA Start: 04-26-2024 Discectomy, spine, cervical, anterior approach, with fusion FDA Start: 04-26-2024 Discectomy, spine, cervical, anterior approach, with fusion FDA Start: 04-26-2024 Discectomy, spine, cervical, anterior approach, with fusion FDA Start: 04-26-2024 Discectomy, spine, cervical, anterior approach, with fusion FDA Start: 04-26-2024 Discectomy, spine, cervical, anterior approach, with fusion FDA Start: 04-26-2024 Discectomy, spine, cervical, anterior approach, with fusion FDA Start: 04-26-2024 Discectomy, spine, cervical, anterior approach, with fusion FDA Start: 04-26-2024 Discectomy, spine, cervical, anterior approach, with fusion FDA Start: 04-26-2024 Discectomy, spine, cervical, anterior approach, with fusion FDA Start: 04-26-2024 Discectomy, spine, cervical, anterior approach, with fusion FDA Start: 04-26-2024 Discectomy, spine, cervical, anterior approach, with fusion FDA Start: 04-26-2024 Discectomy, spine, cervical, anterior approach, with fusion FDA Start: 04-26-2024 Discectomy, spine, cervical, anterior approach, with fusion FDA Start: 04-26-2024 Discectomy, spine, cervical, anterior approach, with fusion FDA Start: 04-26-2024 Discectomy, spine, cervical, anterior approach, with fusion FDA Start: 04-26-2024 Discectomy, spine, cervical, anterior approach, with fusion FDA Start: 04-26-2024 Discectomy, spine, cervical, anterior approach, with fusion FDA Start: 04-26-2024 Discectomy, spine, cervical, anterior approach, with fusion FDA Start: 04-26-2024 Discectomy, spine, cervical, anterior approach, with fusion FDA Start: 04-26-2024 Discectomy, spine, cervical, anterior approach, with fusion FDA Start: 04-26-2024 Discectomy, spine, cervical, anterior approach, with fusion FDA Start: 04-26-2024 Discectomy, spine, cervical, anterior approach, with fusion FDA Start: 04-26-2024 Discectomy, spine, cervical, anterior approach, with fusion FDA Start: 04-26-2024 Discectomy, spine, cervical, anterior approach, with fusion FDA Start: 04-26-2024 Discectomy, spine, cervical, anterior approach, with fusion FDA Start: 04-26-2024 Discectomy, spine, cervical, anterior approach, with fusion FDA Start: 04-26-2024 Discectomy, spine, cervical, anterior approach, with fusion FDA Start: 04-26-2024 Goals Date Patient Goal Desired Activity /State Functional Status Date Assessment Result Facility 05-20-2024 Functional status With Assist of 1 [facility] Work Phone: 05-18-2024 Functional status Chair;Bedrest [facility] Work Phone: 04-27-2024 Functional status Bedside Commode;Back to bed [facility] Work Phone: Mental Status Date Assessment Result Facility 05-20-2024 Cognitive function Voice/Name [facility] Work Phone: 04-27-2024 Cognitive function Awake;Alert;A ppropriate;Fol lows Commands [facility] Work Phone: 04-27-2024 Cognitive function Voice/Name [facility] Work Phone: 04-19-2024 Cognitive function Voice/Name [facility] Work Phone: Clinical Notes 03-19-2020 to 07-21-2024 Note Date & Type Note Facility 07-21-2024 Radiology Diagnostic study note [facility] 05-25-2024 Radiology Diagnostic study note [facility] Imaging Services [address] [place] [id number] Abdomen Single View MR#: [id number] Acct: [id number] Name: YAS ROSA Brigido Rep #: [id number] : 1940 M 83 From: Oren Narvaez DO PCP: Dr. Kwabena Menjivar MD Status: REG CLI Study:Abdomen Single View Date of Exam: 05/25/24 Exam# [id number] Ordering Dr: Sonia Isbell PROCEDURE: Abdominal radiographs, two views 05/25/2024 REASON FOR EXAM: Evaluate for constipation. No clinical history provided TECHNIQUE: Two views of the abdomen were obtained. COMPARISON: 09/18/2020 FINDINGS: Two views of the abdomen were obtained. The bones are osteopenic with degenerative changes in the spine. Some coarse markings at the lung bases, greatest on the right, similar to the 2020 study. No grossly dilated bowel segments. Mild stool in the colon. There is a focal bolus of stool in the central pelvis measuring 9.5 cm transverse. RAD/Abdomen Single View IMPRESSION: No grossly dilated bowel segments. Mild stool in the colon. There is a 9.5 cm transverse dimension bolus of stool in the central pelvis, concerning for developing fecal impaction. Reading Location: [facility] CC: ART HISTORIAN-Bryce Isbell; Dr. Kwabena Menjivar MD ~ Balance Wheel Motion Inspector: Signed [facility] 05-18-2024 Discharge summary Note Date/Time May 18, 2024 9:03am [facility] Medical Records Department [address] [place] [address] Transfer to Extended Care MR#: [id number] Acct: [id number] Name: YAS ROSA Rep #:[id number] : 1940 83 From: Mariano Chan MD PCP: Dr. Kwabena Menjivar MD Status :ADM IN Certification of patient admission REQUIRED AT TIME OF ADMISSION. I CERTIFY THAT POST-HOSPITAL ECF SERVICES ARE REQUIRED TO BE GIVEN ON AN IN-PATIENT BASIS BECAUSE OF THE ABOVE NAMED PATIENT'S NEED FOR CARE HOME CARE ON A CONTINUING BASIS FOR THE CONDITION(S) FOR WHICH HE/SHE WAS RECEIVING IN-PATIENT HOSPITAL SERVICES PRIOR TO HIS/HER TRANSFER TO THE ECF. 05/18/24 0903<Electronically signed by Mariano Chan MD> Diet Diet Order/Speech Therapy: 05/09/24 11:34 Diet: Regular - General Food consistency:: Pureed Liquid Consistency:: [place]/Mildly Thick Type of Dietary Supplement:: Magic Cup w/ L & D Diet Comments: assisted feed, sips 1 at a time, alternate bites/sips, built up utensils. Routine Orders/Code Status Code Status: Full Code DC O2, CPAP, BIPAP needs Home O2 Discharge instructions: No Wound(s) ANT NECK: Wound Type: Surgical Incision Therapies Weight Bearing: Weight bearing as tolerated Extremity Affected:: Bilateral Lower Physical Therapy: Eval and Treat Occupational Therapy: Eval and Treat Speech Therapy: Eval and Treat Problem/Diagnosis (1) Debility: Status: Acute Code(s): R53.81 - Other malaise (2) Multiple falls: Status: Acute Code(s): R29.6 - Repeated falls (3) Cervical stenosis of spinal canal: Status: Chronic Code(s): M48.02 - Spinal stenosis, cervical region (4) Dysphagia: Status: Acute Code(s): R13.10 - Dysphagia, unspecified Comment: predated recent ACDF so acute on chronic (5) Anxiety: Status: Acute Code(s): F41.9 - Anxiety disorder, unspecified (6) BPPV (benign paroxysmal positional vertigo): Status: Acute Code(s): H81.10 - Benign paroxysmal vertigo, unspecified ear (7) Osteoarthritis: Status: Acute Code(s): M19.90 - Unspecified osteoarthritis, unspecified site (8) Muscle spasm: Status: Acute Code(s): M62.838 - Other muscle spasm (9) Orthostatic hypotension: Status: Acute Code(s): I95.1 - Orthostatic hypotension (10) GERD (gastroesophageal reflux disease): Status: Acute Code(s): K21.9 - Gastro-esophageal reflux disease without esophagitis (11) BPH (benign prostatic hyperplasia): Status: Suspected Code(s): N40.0 - Benign prostatic hyperplasia without lower urinary tract symptoms Comment: PSA normal. Has slow stream, urinary frequency, urinary hesitation and dribbling. Retaining urine at presentation to rehab. (12) Urinary tract infection: Status: Acute Code(s): N39.0 - Urinary tract infection, site not specified Plan 83 year old male with below past medical history hospitalized for multiple falls2/2 cervical spinal stenosis, underwent c3-6 acdf 05/06/[address] Diego, admitted to for 3 hours daily rehabilitatin, strengthening, prior to disposition determination. * Debility - PT/OT. * Dysphagia - ST. * Pain - Tylenol 1000mg q8 prn, Oxycodone 2.5mg - 5mg q4h prn. * Bowel - Miralax 17gm daily, senna/colace 2 tablets bid, Dulcolax 10mg pr x 1 prn, MOM 30mL po x 1 prn. * Cervical spinal stenosis s/p decompression - Continue to wean C-collar over the next 10 days. * Sore throat - Cepacol 1 lozenge q2h prn. * Dry eyes - Artificial tears 2gtt ou q1h prn. * Nutrition - Ensure Plus 120mL 4x/day. * Neuropathic pain - Gabapentin 100mg bidcm. * Skin irritation - Calmoseptine topical bid. * Orthostatic hypotension - Midodrine 10mg tid. * Depression/Insomnia/appetite loss - Mirtazapine 15mg qhs. * GERD - Pantoprazole 40mg bid. Allergies/Procedures Done in Hospital Allergies No Known Allergies Allergy (Verified 04/27/24 15:41) Procedures: None Type of Care/Length of Stay Estimated LOS: Convalescent Care Less Than 30 days Type of Care Needed: Skilled Rehab Potential: Good Prognosis: Good Additional Orders/Day of Discharge Day of Discharge: 05/20/24 Dietary and Speech Recommendations Dietitian Recommendations/Changes: Continue regular diet per CONCRETE FORM SETTER AND FINISHER consistency/recommendations. Continue 120ml EPHP 4x daily with medpass, prefers vanilla or strawberry. Adjust to vanilla magic cup with dinner. Will order vanilla fortified pudding with breakfast and lunch. Will monitor weight trends. 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 [employer]CR[employer] FINISHER informally assessed pt vocal quality through the useof the following assessment tasks. Diadochokinetic Rate -puh: patient average 5.2 syllables per second (WNL = 6.1) IMPAIRED -tuh: patient average 4 syllables per second (WNL = 6.0) IMPAIRED -kuh: patient average 4.4 syllables per second (WNL = 5.7) IMPAIRED -puh-tuh-kuh: patient average 1.6 syllables per second (WNL = 7.5) IMPAIRED Findings indicate impairment in articulatory coordination, evident by imprecise articulation S/Z Ratio -/s/ average duration: 3 seconds (WNL = ~20-25 seconds) IMPAIRED -/z/ average duration: 9.25 seconds (WNL = ~20-25 seconds) IMPAIRED -Average s/z ratio: 3/9.25 = 0.32 (WNL = ~ ratio of 1) IMPAIRED Findings indicate the presence of both respiratory and laryngeal impairment. Pt.was observed to have difficulty producing /s/ sound in a sustained manner appropriately despite max cues from [employer] FINISH[employer]. Pt. would often substitute /sh/ for /s/. Maximum Phonation of /ah/ -Sustained /ah/: average of 10.73 seconds IMPAIRED Findings indicate poor breath support and glottis sufficiency. Discharge Plan Admission Admit Date/Time: 04/27/24 15:15 Primary Reason for Your Visit: Debility. Attending Provider: Corazon Wright Primary Care Provider: Kwabena Menjivar Instructions Additional Instructions / Restrictions: Discharge to [facility] 05/20/2024, skilled. Discharge Orders/Prescriptions Prescriptions: New midodrine 5 mg Tablet 10 mg PO 0700,1100,1500 Qty: 0 0RF acetaminophen 500 mg Tablet 1,000 mg PO Q8H PRN (Reason: Pain 1-10 Or Fever >100.7) Qty: 0 0RF magnesium hydroxide 400 mg/5 mL Suspension 30 ml PO X1 PRN (Reason: Constipation) Qty: 0 0RF carboxymethylcellulose sodium [Refresh Tears] 0.5 % Drops 2 drp EACH EYE Q1H PRN (Reason: DRY EYES) Qty: 0 0RF bisacodyl 10 mg Suppository 10 mg OK X1 PRN (Reason: Constipation) Qty: 0 0RF pantoprazole 40 mg Tablet,Delayed Release (Dr/Ec) 40 mg PO BID Qty: 0 0RF mirtazapine 15 mg Tablet 15 mg PO QHS Qty: 0 0RF gabapentin 100 mg Capsule 100 mg PO BIDCM Qty: 0 0RF menthol-zinc oxide [Calmoseptine] 0.44-20.6 % Ointment 1 applic topical BID Qty: 0 0RF Protocol: *Topical Application Instructions APPLICATION INSTRUCTIONS: bilateral buttocks Sore Throat (benzocaine-menth) 15-3.6 mg Lozenge 1 juliet mucous membrane Q2H PRN PRN (Reason: SORE THROAT) Qty: 0 0RF Ensure Plus High Protein 0.08 gram-1.5 kcal/mL Liquid 120 ml PO 4X/DAY Qty: 0 0RF Continued sennosides-docusate sodium [Stimulant Laxative Plus] 8.6-50 mg Tablet 2 tab PO BID Qty: 0 0RF Discontinued methocarbamol 500 mg Tablet 1,000 mg PO 4X/DAY Qty: 0 0RF acetaminophen 325 mg Tablet 650 mg PO Q6H PRN PRN (Reason: Pain 1-10 Or Fever >100.7) Qty: 0 0RF midodrine 5 mg Tablet 10 mg PO TIDCM Qty: 0 0RF Rx Instructions: Hold for SBP less than 100 mmHg tamsulosin 0.4 mg Capsule 0.4 mg PO DAILY@1730 Qty: 0 0RF carboxymethylcellulose sodium [Refresh Tears] 0.5 % Drops 2 drp EACH EYE Q1H PRN (Reason: DRY EYES) Qty: 0 0RF meclizine 25 mg Tablet 12.5 mg PO TID PRN (Reason: dizziness) Qty: 0 0RF diazepam 2 mg Tablet 2 mg PO 4X/DAY PRN PRN (Reason: Vertigo) Qty: 0 0RF Rx Instructions: Hold for sedation/lethargy/hypotension, SBP less than 100 mmHg oxycodone 5 mg Tablet 2.5 - 5 mg PO Q4H PRN PRN (Reason: Pain Score 4-10) Qty: 0 0RF Rx Instructions: Oxycodone 2.5 mg for moderate pain and 5 mg for severe pain respectively. Sore Throat (benzocaine-menth) 15-3.6 mg Lozenge 1 juliet mucous membrane Q2H PRN PRN (Reason: SORE THROAT) Qty: 0 0RF Ensure Plus High Protein 0.08 gram-1.5 kcal/mL Liquid 120 ml PO TIDCM Qty: 0 0RF pantoprazole 20 mg tablet,delayed release (DR/EC) 20 mg PO DAILY Qty: 30 0RF meloxicam 15 mg Tablet 15 mg PO DAILY Qty: 0 0RF Rx Instructions: For 1 week Referrals / Follow Up: Ciro Diego MD [Med Staff - Active Staff] - 06/01/24 3:30 pm Kwabena Menjivar MD [Primary Care Provider] - Favio Austin DO [Med Staff - Active Staff] - 05/25/24 12:30 pm (Esophagitis/laryngitis Suspected dysmotility ) Disposition Disposition (needs filled in before D/C Order can be placed): Alf Facility (4) Dysphagia Qualifiers: Dysphagia type: pharyngeal phase Qualified Code(s): R13.13 - Dysphagia, pharyngeal phase 05/18/24 0903 <Electronically signed by Mariano Chan MD> Cosigner Signature (if applicable): CC: Dr. Kwabena Menjivar MD ~ [facility] Work Phone: [phone] Discharge summary Author [facility] Note Date/Time May 18, 2024 9:0 2am [facility] Medical Records Department [address] [place] [address] Discharge Summary 05/18/24 0852 MR#: [id number] Acct: [id number] Name: YAS ROSA Rep #:[id number] : 1940 83 From: Mariano Chan MD PCP: Dr. Kwabena Menjivar MD Status :ADM IN Location: [address] Providers Date of Admission: 04/27/24 Primary Care Physician: Dr. Kwabena Menjivar MD Reason For Visit: SPINCAL CORD COMPRESSION W MYELOPATHY Diagnosis Discharge Diagnosis (1) Debility: Status: Acute Code(s): R53.81 - Other malaise (2) Multiple falls: Status: Acute Code(s): R29.6 - Repeated falls (3) Cervical stenosis of spinal canal: Status: Chronic Code(s): M48.02 - Spinal stenosis, cervical region (4) Dysphagia: Status: Acute Code(s): R13.10 - Dysphagia, unspecified Qualifiers: Dysphagia type: pharyngeal phase Qualified Code(s): R13.13 - Dysphagia,pharyngeal phase (5) Anxiety: Status: Acute Code(s): F41.9 - Anxiety disorder, unspecified (6) BPPV (benign paroxysmal positional vertigo): Status: Acute Code(s): H81.10 - Benign paroxysmal vertigo, unspecified ear (7) Osteoarthritis: Status: Acute Code(s): M19.90 - Unspecified osteoarthritis, unspecified site (8) Muscle spasm: Status: Acute Code(s): M62.838 - Other muscle spasm (9) Orthostatic hypotension: Status: Acute Code(s): I95.1 - Orthostatic hypotension (10) GERD (gastroesophageal reflux disease): Status: Acute Code(s): K21.9 - Gastro-esophageal reflux disease without esophagitis (11) BPH (benign prostatic hyperplasia): Status: Suspected Code(s): N40.0 - Benign prostatic hyperplasia without lower urinary tract symptoms (12) Urinary tract infection: Status: Acute Code(s): N39.0 - Urinary tract infection, site not specified Plan 83 year old male with below past medical history hospitalized for multiple falls2/2 cervical spinal stenosis, underwent c3-6 acdf 05/06/[address] Diego, admitted to for 3 hours daily rehabilitatin, strengthening, prior to disposition determination. * Debility - PT/OT. * Dysphagia - ST. * Pain - Tylenol 1000mg q8 prn, Oxycodone 2.5mg - 5mg q4h prn. * Bowel - Miralax 17gm daily, senna/colace 2 tablets bid, Dulcolax 10mg pr x 1 prn, MOM 30mL po x 1 prn. * Cervical spinal stenosis s/p decompression - Continue to wean C-collar over the next 10 days. * Sore throat - Cepacol 1 lozenge q2h prn. * Dry eyes - Artificial tears 2gtt ou q1h prn. * Nutrition - Ensure Plus 120mL 4x/day. * Neuropathic pain - Gabapentin 100mg bidcm. * Skin irritation - Calmoseptine topical bid. * Orthostatic hypotension - Midodrine 10mg tid. * Depression/Insomnia/appetite loss - Mirtazapine 15mg qhs. * GERD - Pantoprazole 40mg bid. Medications at Discharge Home Medications sennosides 8.6 mg-docusate sodium 50 mg tablet (Stimulant Laxative Plus) 2 tab PO BID laxative #0 tabs 04/27/24 acetaminophen 500 mg tablet 1,000 mg (2 x 500 mg) PO Q8H PRN Pain 1-10 Or Fever >100.7 #0 tabs 05/18/24 benzocaine 15 mg-menthol 3.6 mg lozenges (Sore Throat (benzocaine with menthol))1 juliet mucous membrane Q2H PRN PRN SORE THROAT #0 ea 05/18/24 bisacodyl 10 mg rectal suppository 10 mg OK X1 PRN Constipation #0 ea 05/18/24 carboxymethylcellulose sodium 0.5 % eye drops (Refresh Tears) 2 drp EACH EYE Q1HPRN DRY EYES #0 mL 05/18/24 food supplemt, lactose-reduced 0.08 gram-1.5 kcal/mL oral liquid (Ensure Plus High Protein) 120 ml PO 4X/DAY #0 mL 05/18/24 gabapentin 100 mg capsule 100 mg PO BIDCM #0 caps 05/18/24 magnesium hydroxide 400 mg/5 mL oral suspension 30 ml PO X1 PRN Constipation #0 mL 05/18/24 menthol 0.44 %-zinc oxide 20.6 % topical ointment (Calmoseptine) 1 applic topical BID #0 grams 05/18/24 midodrine 5 mg tablet 10 mg (2 x 5 mg) PO 0700,1100,1500 #0 tabs 05/18/24 mirtazapine 15 mg tablet 15 mg PO QHS #0 tabs 05/18/24 pantoprazole 40 mg tablet,delayed release 40 mg PO BID #0 tabs 05/18/24 Hospital Course Operations - (See below.) Procedures None Summary of Care Provided Minutes Spent on Discharge: 35 Hospital Course: 83 year old male with below past medical history hospitalized for multiple falls2/2 cervical spinal stenosis, underwent c3-6 acdf 05/06/[address] Diego, admitted to for 3 hours daily rehabilitatin, strengthening, prior to disposition determination. Wean off C-collar over the next week. Discharge to [facility] 05/20/2024, skilled. Physical Exam Const alert General Appearance: cooperative HEENT normocephalic Eyes PERRL and EOMs intact bilaterally Neck supple, no JVD and no carotid bruits Neck Narrative: C-collar in place. Resp normal respiratory effort, normal air movement and clear to auscultation bilaterally Cardio regular rate and regular rhythm GI normal to inspection, nondistended, normoactive bowel sounds, non-tender and non-distended Extremity normal capillary refill General Extremity: Negative for edema Skin no rashes or lesions noted General Skin Exam: no breakdown Neuro Neuro Narrative: Left upper extremity weakness. Psych affect normal Appearance: appropriate Weight / BMI Weight Weight: 72.717 kg Body Mass Index (BMI) 24.3 ABG / Lab / Microbiology Data 05/11/24 06:03 05/11/24 06:03 Microbiology: Microbiology 05/10/24 11:50 Urine Catheter - Catheter Urine Culture - Final Enterobacter cloacae complex 04/27/24 22:05 Urine Catheter - Catheter Urine Culture - Final Culture exhibits no growth. 04/29/24 22:20 Stool Stool Occult Blood (JERMAINE) - Final Indicators for Scoring Admitted with or Primary Diagnosis of CVA/Stroke: No Hx of CVA/Stroke: No D/C Instructions Discharge Diet: - (Diet: Minced and Moist Textures and Thin Liquids Medication Administration:: Crushed in puree Comments: Sips 1 at a time, double swallow w/ solids (minced/moist textures) Compensatory Strategies: Small Bites, Small Sips,Slow Rate, Multiple Swallows, Alternate bites/solids and sips/liquids, Sitting ) Discharge Activity: Return to Normal Activity, May Shower and Use Walker Weight Bearing Status: Weight bearing as tolerated Call your doctor if you observe: Fever of 101 or Higher, Inability to urinate, Inability to have a bowel movement, Shortness of breath, Dizziness, Fainting spells, Swelling in the ankles, Chest pain and Uncontrolled pain DC O2, CPAP, BIPAP Needs RN Home O2 qualification: 2 No Data to Display Home O2 Discharge instructions: No Additional Instructions: Discharge to [facility] 05/20/2024, skilled. Meaningful Use Info Meaningful Use Meaningful Use Diagnoses (Choose all that apply): None applicable Ischemic Stroke Statin Dosing Therapy Reference: STATIN DOSE THERAPY REFERENCE: * Patients > 75 years receive moderate or high dose statin therapy. * Patients 75 years or YOUNGER should receive HIGH intensity statin dose unless contraindicated. You will be required to document reason for non-treatment if statin daily dose does not meet guidelines. HIGH DOSE STATIN THERAPY DAILY Atorvastatin > than or = to 40 mg Rosuvastatin > than or = to 20 mg Amlodipine + Atorvastatin > than or = to 2.5/40 mg Ezetimibe + Simvastatin 10/80 mg Simvastatin 80mg Discharge Plan Admission Admit Date/Time: 04/27/24 15:15 Primary Reason for Your Visit: Debility. Attending Provider: Corazon Wright Primary Care Provider: Kwabena Menjivar Instructions Additional Instructions / Restrictions: Discharge to [facility] 05/20/2024, skilled. Discharge Orders/Prescriptions Prescriptions: New midodrine 5 mg Tablet 10 mg PO 0700,1100,1500 Qty: 0 0RF acetaminophen 500 mg Tablet 1,000 mg PO Q8H PRN (Reason: Pain 1-10 Or Fever >100.7) Qty: 0 0RF magnesium hydroxide 400 mg/5 mL Suspension 30 ml PO X1 PRN (Reason: Constipation) Qty: 0 0RF carboxymethylcellulose sodium [Refresh Tears] 0.5 % Drops 2 drp EACH EYE Q1H PRN (Reason: DRY EYES) Qty: 0 0RF bisacodyl 10 mg Suppository 10 mg OK X1 PRN (Reason: Constipation) Qty: 0 0RF pantoprazole 40 mg Tablet,Delayed Release (Dr/Ec) 40 mg PO BID Qty: 0 0RF mirtazapine 15 mg Tablet 15 mg PO QHS Qty: 0 0RF gabapentin 100 mg Capsule 100 mg PO BIDCM Qty: 0 0RF menthol-zinc oxide [Calmoseptine] 0.44-20.6 % Ointment 1 applic topical BID Qty: 0 0RF Protocol: *Topical Application Instructions APPLICATION INSTRUCTIONS: bilateral buttocks Sore Throat (benzocaine-menth) 15-3.6 mg Lozenge 1 juliet mucous membrane Q2H PRN PRN (Reason: SORE THROAT) Qty: 0 0RF Ensure Plus High Protein 0.08 gram-1.5 kcal/mL Liquid 120 ml PO 4X/DAY Qty: 0 0RF Continued sennosides-docusate sodium [Stimulant Laxative Plus] 8.6-50 mg Tablet 2 tab PO BID Qty: 0 0RF Discontinued methocarbamol 500 mg Tablet 1,000 mg PO 4X/DAY Qty: 0 0RF acetaminophen 325 mg Tablet 650 mg PO Q6H PRN PRN (Reason: Pain 1-10 Or Fever >100.7) Qty: 0 0RF midodrine 5 mg Tablet 10 mg PO TIDCM Qty: 0 0RF Rx Instructions: Hold for SBP less than 100 mmHg tamsulosin 0.4 mg Capsule 0.4 mg PO DAILY@1730 Qty: 0 0RF carboxymethylcellulose sodium [Refresh Tears] 0.5 % Drops 2 drp EACH EYE Q1H PRN (Reason: DRY EYES) Qty: 0 0RF meclizine 25 mg Tablet 12.5 mg PO TID PRN (Reason: dizziness) Qty: 0 0RF diazepam 2 mg Tablet 2 mg PO 4X/DAY PRN PRN (Reason: Vertigo) Qty: 0 0RF Rx Instructions: Hold for sedation/lethargy/hypotension, SBP less than 100 mmHg oxycodone 5 mg Tablet 2.5 - 5 mg PO Q4H PRN PRN (Reason: Pain Score 4-10) Qty: 0 0RF Rx Instructions: Oxycodone 2.5 mg for moderate pain and 5 mg for severe pain respectively. Sore Throat (benzocaine-menth) 15-3.6 mg Lozenge 1 juliet mucous membrane Q2H PRN PRN (Reason: SORE THROAT) Qty: 0 0RF Ensure Plus High Protein 0.08 gram-1.5 kcal/mL Liquid 120 ml PO TIDCM Qty: 0 0RF pantoprazole 20 mg tablet,delayed release (DR/EC) 20 mg PO DAILY Qty: 30 0RF meloxicam 15 mg Tablet 15 mg PO DAILY Qty: 0 0RF Rx Instructions: For 1 week Referrals / Follow Up: Ciro Diego MD [Med Staff - Active Staff] - 06/01/24 3:30 pm Kwabena Menjivar MD [Primary Care Provider] - Favio Austin DO [Med Staff - Active Staff] - 05/25/24 12:30 pm (Esophagitis/laryngitis Suspected dysmotility ) Disposition Disposition (needs filled in before D/C Order can be placed): [facility] Facility 05/18/24 09 <Electronically signed by Mariano Chan MD> Cosigner Signature (if applicable): CC: Dr. Kwabena Menjivar MD; Dr. Mariano Chan MD~ Signed [facility] Work Phone: [phone] Discharge summary [facility] Medical Records Department [address] [place] [address] Transfer to [facility] MR#: [id number] Acct: [id number] Name: YAS ROSA Rep #:[id number] : 1940 83 From: Mariano Chan MD PCP: Dr. Kwabena Menjivar MD Status :ADM IN Certification of patient admission REQUIRED AT TIME OF ADMISSION. I CERTIFY THAT POST-HOSPITAL ECF SERVICES ARE REQUIRED TO BE GIVEN ON AN IN-PATIENT BASIS BECAUSE OF THE ABOVE NAMED PATIENT'S NEED FOR CARE HOME CARE ON A CONTINUING BASIS FOR THE CONDITION(S) FOR WHICH HE/SHE WAS RECEIVING IN-PATIENT HOSPITAL SERVICES PRIOR TO HIS/HER TRANSFER TO THE F. 05/18/24 0903 Diet Diet Order/Speech Therapy: 05/09/24 11:34 Diet: Regular - General Food consistency:: Pureed Liquid Consistency:: [place]/Mildly Thick Type of Dietary Supplement:: Magic Cup w/ L & D Diet Comments: assisted feed, sips 1 at a time, alternate bites/sips, built up utensils. Routine Orders/Code Status Code Status: Full Code DC O2, CPAP, BIPAP needs Home O2 Discharge instructions: No Wound(s) ANT NECK: Wound Type: Surgical Incision Therapies Weight Bearing: Weight bearing as tolerated Extremity Affected:: Bilateral Lower Physical Therapy: Eval and Treat Occupational Therapy: Eval and Treat Speech Therapy: Eval and Treat Problem/Diagnosis (1) Debility: Status: Acute Code(s): R53.81 - Other malaise (2) Multiple falls: Status: Acute Code(s): R29.6 - Repeated falls (3) Cervical stenosis of spinal canal: Status: Chronic Code(s): M48.02 - Spinal stenosis, cervical region (4) Dysphagia: Status: Acute Code(s): R13.10 - Dysphagia, unspecified Comment: predated recent ACDF so acute on chronic (5) Anxiety: Status: Acute Code(s): F41.9 - Anxiety disorder, unspecified (6) BPPV (benign paroxysmal positional vertigo): Status: Acute Code(s): H81.10 - Benign paroxysmal vertigo, unspecified ear (7) Osteoarthritis: Status: Acute Code(s): M19.90 - Unspecified osteoarthritis, unspecified site (8) Muscle spasm: Status: Acute Code(s): M62.838 - Other muscle spasm (9) Orthostatic hypotension: Status: Acute Code(s): I95.1 - Orthostatic hypotension (10) GERD (gastroesophageal reflux disease): Status: Acute Code(s): K21.9 - Gastro-esophageal reflux disease without esophagitis (11) BPH (benign prostatic hyperplasia): Status: Suspected Code(s): N40.0 - Benign prostatic hyperplasia without lower urinary tract symptoms Comment: PSA normal. Has slow stream, urinary frequency, urinary hesitation and dribbling. Retaining urine at presentation to rehab. (12) Urinary tract infection: Status: Acute Code(s): N39.0 - Urinary tract infection, site not specified Plan 83 year old male with below past medical history hospitalized for multiple falls2/2 cervical spinalstenosis, underwent c3-6 acdf 05/06/[address] Diego, admitted to for 3 hours daily rehabilitatin, strengthening, prior to disposition determination. * Debility - PT/OT. * Dysphagia - ST. * Pain - Tylenol 1000mg q8 prn, Oxycodone 2.5mg - 5mg q4h prn. * Bowel - Miralax 17gm daily, senna/colace 2 tablets bid, Dulcolax 10mg pr x 1 prn, MOM 30mL po x 1prn. * Cervical spinal stenosis s/p decompression - Continue to wean C-collar over the next 10 days. * Sore throat - Cepacol 1 lozenge q2h prn. * Dry eyes - Artificial tears 2gtt ou q1h prn. * Nutrition - Ensure Plus 120mL 4x/day. * Neuropathic pain - Gabapentin 100mg bidcm. * Skin irritation - Calmoseptine topical bid. * Orthostatic hypotension - Midodrine 10mg tid. * Depression/Insomnia/appetite loss - Mirtazapine 15mg qhs. * GERD - Pantoprazole 40mg bid. Allergies/Procedures Done in Hospital Allergies No Known Allergies Allergy (Verified 04/27/24 15:41) Procedures: None Type of Care/Length of Stay Estimated LOS: Convalescent Care Less Than 30 days Type of Care Needed: Skilled Rehab Potential: Good Prognosis: Good Additional Orders/Day of Discharge Day of Discharge: 05/20/24 Dietary and Speech Recommendations Dietitian Recommendations/Changes: Continue regular diet per [employer] consistency/recommendations. Continue 120ml EPHP 4x daily with medpass, prefers vanilla or strawberry. Adjust to vanilla magic cup with dinner. Will order vanilla fortified pudding with breakfast and lunch. Will monitor weight trends. 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 [employer] informally assessed pt vocal quality through the useof the following assessment tasks. Diadochokinetic Rate -puh: patient average 5.2 syllables per second (WNL = 6.1) IMPAIRED -tuh: patient average 4 syllables per second (WNL = 6.0) IMPAIRED -kuh: patient average 4.4 syllables per second (WNL = 5.7) IMPAIRED -puh-tuh-kuh: patient average 1.6 syllables per second (WNL = 7.5) IMPAIRED Findings indicate impairment in articulatory coordination, evident by imprecise articulation S/Z Ratio -/s/ average duration: 3 seconds (WNL = ~20-25 seconds) IMPAIRED -/z/ average duration: 9.25 seconds (WNL = ~20-25 seconds) IMPAIRED -Average s/z ratio: 3/9.25 = 0.32 (WNL = ~ ratio of 1) IMPAIRED Findings indicate the presence of both respiratory and laryngeal impairment. Pt.was observed to have difficulty producing /s/ sound in a sustained manner appropriately despite max cues from [employer]. Pt. would often substitute /sh/ for /s/. Maximum Phonation of /ah/ -Sustained /ah/: average of 10.73 seconds IMPAIRED Findings indicate poor breath support and glottis sufficiency. Discharge Plan Admission Admit Date/Time: 04/27/24 15:15 Primary Reason for Your Visit: Debility. Attending Provider: Corazon Wright Primary Care Provider: Kwabena Menjivar Instructions Additional Instructions / Restrictions: Discharge to [facility] 05/20/2024, skilled. Discharge Orders/Prescriptions Prescriptions: New midodrine 5 mg Tablet 10 mg PO 0700,1100,1500 Qty: 0 0RF acetaminophen 500 mg Tablet 1,000 mg PO Q8H PRN (Reason: Pain 1-10 Or Fever >100.7) Qty: 0 0RF magnesium hydroxide 400 mg/5 mL Suspension 30 ml PO X1 PRN (Reason: Constipation) Qty: 0 0RF carboxymethylcellulose sodium [Refresh Tears] 0.5 % Drops 2 drp EACH EYE Q1H PRN (Reason: DRY EYES) Qty: 0 0RF bisacodyl 10 mg Suppository 10 mg OK X1 PRN (Reason: Constipation) Qty: 0 0RF pantoprazole 40 mg Tablet,Delayed Release (Dr/Ec) 40 mg PO BID Qty: 0 0RF mirtazapine 15 mg Tablet 15 mg PO QHS Qty: 0 0RF gabapentin 100 mg Capsule 100 mg PO BIDCM Qty: 0 0RF menthol-zinc oxide [Calmoseptine] 0.44-20.6 % Ointment 1 applic topical BID Qty: 0 0RF Protocol: *Topical Application Instructions APPLICATION INSTRUCTIONS: bilateral buttocks Sore Throat (benzocaine-menth) 15-3.6 mg Lozenge 1 juliet mucous membrane Q2H PRN PRN (Reason: SORE THROAT) Qty: 0 0RF Ensure Plus High Protein 0.08 gram-1.5 kcal/mL Liquid 120 ml PO 4X/DAY Qty: 0 0RF Continued sennosides-docusate sodium [Stimulant Laxative Plus] 8.6-50 mg Tablet 2 tab PO BID Qty: 0 0RF Discontinued methocarbamol 500 mg Tablet 1,000 mg PO 4X/DAY Qty: 0 0RF acetaminophen 325 mg Tablet 650 mg PO Q6H PRN PRN (Reason: Pain 1-10 Or Fever >100.7) Qty: 0 0RF midodrine 5 mg Tablet 10 mg PO TIDCM Qty: 0 0RF Rx Instructions: Hold for SBP less than 100 mmHg tamsulosin 0.4 mg Capsule 0.4 mg PO DAILY@1730 Qty: 0 0RF carboxymethylcellulose sodium [Refresh Tears] 0.5 % Drops 2 drp EACH EYE Q1H PRN (Reason: DRY EYES) Qty: 0 0RF meclizine 25 mg Tablet 12.5 mg PO TID PRN (Reason: dizziness) Qty: 0 0RF diazepam 2 mg Tablet 2 mg PO 4X/DAY PRN PRN (Reason: Vertigo) Qty: 0 0RF Rx Instructions: Hold for sedation/lethargy/hypotension, SBP less than 100 mmHg oxycodone 5 mg Tablet 2.5 - 5 mg PO Q4H PRN PRN (Reason: Pain Score 4-10) Qty: 0 0RF Rx Instructions: Oxycodone 2.5 mg for moderate pain and 5 mg for severe pain respectively. Sore Throat (benzocaine-menth) 15-3.6 mg Lozenge 1 juliet mucous membrane Q2H PRN PRN (Reason: SORE THROAT) Qty: 0 0RF Ensure Plus High Protein 0.08 gram-1.5 kcal/mL Liquid 120 ml PO TIDCM Qty: 0 0RF pantoprazole 20 mg tablet,delayed release (DR/EC) 20 mg PO DAILY Qty: 30 0RF meloxicam 15 mg Tablet 15 mg PO DAILY Qty: 0 0RF Rx Instructions: For 1 week Referrals / Follow Up: Ciro Diego MD [Med Staff - Active Staff] - 06/01/24 3:30 pm Kwabena Menjivar MD [Primary Care Provider] - Favio Austin DO [Med Staff - Active Staff] - 05/25/24 12:30 pm (Esophagitis/laryngitis Suspected dysmotility ) Disposition Disposition (needs filled in before D/C Order can be placed): Alf Facility (4) Dysphagia Qualifiers: Dysphagia type: pharyngeal phase Qualified Code(s): R13.13 - Dysphagia, pharyngeal phase 05/18/24 09 Cosigner Signature (if applicable): CC: Dr. Kwabena Menjivar MD ~ [facility]04-10-2025 Discharge summary [facility] Medical Records Department [address] [place] [id number] Discharge Summary 05/18/24 0852 MR#: [id number] Acct: [id number] Name: YAS ROSA Rep #:[id number] : 1940 83 From: Mariano Chan MD PCP: Dr. Kwabena Menjivar MD Status :ADM IN Location: [place] [address]-1 Providers Date of Admission: 04/27/24 Primary Care Physician: Dr. Kwabena Menjivar MD Reason For Visit: SPINCAL CORD COMPRESSION W MYELOPATHY Diagnosis Discharge Diagnosis (1) Debility: Status: Acute Code(s): R53.81 - Other malaise (2) Multiple falls: Status: Acute Code(s): R29.6 - Repeated falls (3) Cervical stenosis of spinal canal: Status: Chronic Code(s): M48.02 - Spinal stenosis, cervical region (4) Dysphagia: Status: Acute Code(s): R13.10 - Dysphagia, unspecified Qualifiers: Dysphagia type: pharyngeal phase Qualified Code(s): R13.13 - Dysphagia,pharyngeal phase (5) Anxiety: Status: Acute Code(s): F41.9 - Anxiety disorder, unspecified (6) BPPV (benign paroxysmal positional vertigo): Status: Acute Code(s): H81.10 - Benign paroxysmal vertigo, unspecified ear (7) Osteoarthritis: Status: Acute Code(s): M19.90 - Unspecified osteoarthritis, unspecified site (8) Muscle spasm: Status: Acute Code(s): M62.838 - Other muscle spasm (9) Orthostatic hypotension: Status: Acute Code(s): I95.1 - Orthostatic hypotension (10) GERD (gastroesophageal reflux disease): Status: Acute Code(s): K21.9 - Gastro-esophageal reflux disease without esophagitis (11) BPH (benign prostatic hyperplasia): Status: Suspected Code(s): N40.0 - Benign prostatic hyperplasia without lower urinary tract symptoms (12) Urinary tract infection: Status: Acute Code(s): N39.0 - Urinary tract infection, site not specified Plan 83 year old male with below past medical history hospitalized for multiple falls2/2 cervical spinalstenosis, underwent c3-6 acdf 05/06/[address] Diego, admitted to for 3 hours daily rehabilitatin, strengthening, prior to disposition determination. * Debility - PT/OT. * Dysphagia - ST. * Pain - Tylenol 1000mg q8 prn, Oxycodone 2.5mg - 5mg q4h prn. * Bowel - Miralax 17gm daily, senna/colace 2 tablets bid, Dulcolax 10mg pr x 1 prn, MOM 30mL po x 1prn. * Cervical spinal stenosis s/p decompression - Continue to wean C-collar over the next 10 days. * Sore throat - Cepacol 1 lozenge q2h prn. * Dry eyes - Artificial tears 2gtt ou q1h prn. * Nutrition - Ensure Plus 120mL 4x/day. * Neuropathic pain - Gabapentin 100mg bidcm. * Skin irritation - Calmoseptine topical bid. * Orthostatic hypotension - Midodrine 10mg tid. * Depression/Insomnia/appetite loss - Mirtazapine 15mg qhs. * GERD - Pantoprazole 40mg bid. Medications at Discharge Home Medications sennosides 8.6 mg-docusate sodium 50 mg tablet (Stimulant Laxative Plus) 2 tab PO BID laxative #0 tabs 04/27/24 acetaminophen 500 mg tablet 1,000 mg (2 x 500 mg) PO Q8H PRN Pain 1-10 Or Fever >100.7 #0 tabs 05/18/24 benzocaine 15 mg-menthol 3.6 mg lozenges (Sore Throat (benzocaine with menthol))1 juliet mucous membrane Q2H PRN PRN SORE THROAT #0 ea 05/18/24 bisacodyl 10 mg rectal suppository 10 mg OK X1 PRN Constipation #0 ea 05/18/24 carboxymethylcellulose sodium 0.5 % eye drops (Refresh Tears) 2 drp EACH EYE Q1HPRN DRY EYES #0 mL 05/18/24 food supplemt, lactose-reduced 0.08 gram-1.5 kcal/mL oral liquid (Ensure Plus High Protein) 120 ml PO 4X/DAY #0 mL 05/18/24 gabapentin 100 mg capsule 100 mg PO BIDCM #0 caps 05/18/24 magnesium hydroxide 400 mg/5 mL oral suspension 30 ml PO X1 PRN Constipation #0 mL 05/18/24 menthol 0.44 %-zinc oxide 20.6 % topical ointment (Calmoseptine) 1 applic topical BID #0 grams 05/18/24 midodrine 5 mg tablet 10 mg (2 x 5 mg) PO 0700,1100,1500 #0 tabs 05/18/24 mirtazapine 15 mg tablet 15 mg PO QHS #0 tabs 05/18/24 pantoprazole 40 mg tablet,delayed release 40 mg PO BID #0 tabs 05/18/24 Hospital Course Operations - (See below.) Procedures None Summary of Care Provided Minutes Spent on Discharge: 35 Hospital Course: 83 year old male with below past medical history hospitalized for multiple falls2/2 cervical spinalstenosis, underwent c3-6 acdf 05/06/[address] Diego, admitted to for 3 hours daily rehabilitatin, strengthening, prior to disposition determination. Wean off C-collar over the next week. Discharge to [facility] 05/20/2024, skilled. Physical Exam Const alert General Appearance: cooperative HEENT normocephalic Eyes PERRL and EOMs intact bilaterally Neck supple, no JVD and no carotid bruits Neck Narrative: C-collar in place. Resp normal respiratory effort, normal air movement and clear to auscultation bilaterally Cardio regular rate and regular rhythm GI normal to inspection, nondistended, normoactive bowel sounds, non-tender and non-distended Extremity normal capillary refill General Extremity: Negative for edema Skin no rashes or lesions noted General Skin Exam: no breakdown Neuro Neuro Narrative: Left upper extremity weakness. Psych affect normal Appearance: appropriate Weight / BMI Weight Weight: 72.717 kg Body Mass Index (BMI) 24.3 ABG / Lab / Microbiology Data 05/11/24 06:03 05/11/24 06:03 Microbiology: Microbiology 05/10/24 11:50 Urine Catheter - Catheter Urine Culture - Final Enterobacter cloacae complex 04/27/24 22:05 Urine Catheter - Catheter Urine Culture - Final Culture exhibits no growth. 04/29/24 22:20 Stool Stool Occult Blood (JERMAINE) - Final Indicators for Scoring Admitted with or Primary Diagnosis of CVA/Stroke: No Hx of CVA/Stroke: No D/C Instructions Discharge Diet: - (Diet: Minced and Moist Textures and Thin Liquids Medication Administration:: Crushed in puree Comments: Sips 1 at a time, double swallow w/ solids (minced/moist textures) Compensatory Strategies: Small Bites, Small Sips,Slow Rate, Multiple Swallows, Alternate bites/solids and sips/liquids, Sitting ) Discharge Activity: Return to Normal Activity, May Shower and Use Walker Weight Bearing Status: Weight bearing as tolerated Call your doctor if you observe: Fever of 101 or Higher, Inability to urinate, Inability to have a bowel movement, Shortness of breath, Dizziness, Fainting spells, Swelling in the ankles, Chest pain and Uncontrolled pain DC O2, CPAP, BIPAP Needs RN Home O2 qualification: 2 No Data to Display Home O2 Discharge instructions: No Additional Instructions: Discharge to [facility] 05/20/2024, skilled. Meaningful Use Info Meaningful Use Meaningful Use Diagnoses (Choose all that apply): None applicable Ischemic Stroke Statin Dosing Therapy Reference: STATIN DOSE THERAPY REFERENCE: * Patients > 75 years receive moderate or high dose statin therapy. * Patients 75 years or YOUNGER should receive HIGH intensity statin dose unless contraindicated. You will be required to document reason for non-treatment if statin daily dose does not meet guidelines. HIGH DOSE STATIN THERAPY DAILY Atorvastatin > than or = to 40 mg Rosuvastatin > than or = to 20 mg Amlodipine + Atorvastatin > than or = to 2.5/40 mg Ezetimibe + Simvastatin 10/80 mg Simvastatin 80mg Discharge Plan Admission Admit Date/Time: 04/27/24 15:15 Primary Reason for Your Visit: Debility. Attending Provider: Corazon Wright Primary Care Provider: Kwabena Menjivar Instructions Additional Instructions / Restrictions: Discharge to [facility] 05/20/2024, skilled. Discharge Orders/Prescriptions Prescriptions: New midodrine 5 mg Tablet 10 mg PO 0700,1100,1500 Qty: 0 0RF acetaminophen 500 mg Tablet 1,000 mg PO Q8H PRN (Reason: Pain 1-10 Or Fever >100.7) Qty: 0 0RF magnesium hydroxide 400 mg/5 mL Suspension 30 ml PO X1 PRN (Reason: Constipation) Qty: 0 0RF carboxymethylcellulose sodium [Refresh Tears] 0.5 % Drops 2 drp EACH EYE Q1H PRN (Reason: DRY EYES) Qty: 0 0RF bisacodyl 10 mg Suppository 10 mg OK X1 PRN (Reason: Constipation) Qty: 0 0RF pantoprazole 40 mg Tablet,Delayed Release (Dr/Ec) 40 mg PO BID Qty: 0 0RF mirtazapine 15 mg Tablet 15 mg PO QHS Qty: 0 0RF gabapentin 100 mg Capsule 100 mg PO BIDCM Qty: 0 0RF menthol-zinc oxide [Calmoseptine] 0.44-20.6 % Ointment 1 applic topical BID Qty: 0 0RF Protocol: *Topical Application Instructions APPLICATION INSTRUCTIONS: bilateral buttocks Sore Throat (benzocaine-menth) 15-3.6 mg Lozenge 1 juliet mucous membrane Q2H PRN PRN (Reason: SORE THROAT) Qty: 0 0RF Ensure Plus High Protein 0.08 gram-1.5 kcal/mL Liquid 120 ml PO 4X/DAY Qty: 0 0RF Continued sennosides-docusate sodium [Stimulant Laxative Plus] 8.6-50 mg Tablet 2 tab PO BID Qty: 0 0RF Discontinued methocarbamol 500 mg Tablet 1,000 mg PO 4X/DAY Qty: 0 0RF acetaminophen 325 mg Tablet 650 mg PO Q6H PRN PRN (Reason: Pain 1-10 Or Fever >100.7) Qty: 0 0RF midodrine 5 mg Tablet 10 mg PO TIDCM Qty: 0 0RF Rx Instructions: Hold for SBP less than 100 mmHg tamsulosin 0.4 mg Capsule 0.4 mg PO DAILY@1730 Qty: 0 0RF carboxymethylcellulose sodium [Refresh Tears] 0.5 % Drops 2 drp EACH EYE Q1H PRN (Reason: DRY EYES) Qty: 0 0RF meclizine 25 mg Tablet 12.5 mg PO TID PRN (Reason: dizziness) Qty: 0 0RF diazepam 2 mg Tablet 2 mg PO 4X/DAY PRN PRN (Reason: Vertigo) Qty: 0 0RF Rx Instructions: Hold for sedation/lethargy/hypotension, SBP less than 100 mmHg oxycodone 5 mg Tablet 2.5 - 5 mg PO Q4H PRN PRN (Reason: Pain Score 4-10) Qty: 0 0RF Rx Instructions: Oxycodone 2.5 mg for moderate pain and 5 mg for severe pain respectively. Sore Throat (benzocaine-menth) 15-3.6 mg Lozenge 1 juliet mucous membrane Q2H PRN PRN (Reason: SORE THROAT) Qty: 0 0RF Ensure Plus High Protein 0.08 gram-1.5 kcal/mL Liquid 120 ml PO TIDCM Qty: 0 0RF pantoprazole 20 mg tablet,delayed release (DR/EC) 20 mg PO DAILY Qty: 30 0RF meloxicam 15 mg Tablet 15 mg PO DAILY Qty: 0 0RF Rx Instructions: For 1 week Referrals / Follow Up: Ciro Diego MD [Med Staff - Active Staff] - 06/01/24 3:30 pm Kwabena Menjivar MD [Primary Care Provider] - Favio Austin DO [Med Staff - Active Staff] - 05/25/24 12:30 pm (Esophagitis/laryngitis Suspected dysmotility ) Disposition Disposition (needs filled in before D/C Order can be placed): [facility] 05/18/24901 Cosigner Signature (if applicable): CC: Dr. Kwabena Menjivar MD; Dr. Mariano Chan MD~ Signed [facility]04-10-20[facility] Progress note Author [facility] Note Date/Time May 17, 2024 8:15 am [facility] Medical Records Department [address] [place] [address] Progress Note - Rehab 05/17/24812 MR#: [id number] Acct: [id number] Name: YAS ROSA Rep #:[id number] : 1940 83 From: Mariano Chan MD PCP: Dr. Kwabena Menjivar MD Status :ADM IN Location: [place] [address] Subjective Subjective Patient seen, examined. He is eating breakfast in bed. His C-collar is off, hewas able to walk yesterday, he feels he is clearing his throat, when swallowing. His mood is baseline. Objective Data Objective Data Vital Signs: Vital Signs Temp Pulse Resp BP Pulse Ox O2 Del Method 98.3 F 68 17 125/67 H 94 Room Air 05/17/24 05:46 05/17/24 05:46 05/17/24 05:46 05/17/24 05:46 05/17/24 05:46 05/17/24 05:46 Oxygen Delivery Method Room Air Weight: 73.4 kg Body Mass Index (BMI) 24.5 Intake & Output: Intake and Output for Last 24 Hours 05/15/24 05/16/24 05/17/24 23:59 23:59 23:59 Intake Total 1360 / 1360 1140 / 1140 320 / 320 Output Total 300 / 300 100 / 100 Balance 1060 / 1060 1040 / 1040 320 / 320 Lab / Micro Data 05/11/24 06:03 05/11/24 06:03 Micro: Microbiology 05/10/24 11:50 Urine Catheter - Catheter Urine Culture - Final Enterobacter cloacae complex 04/27/24 22:05 Urine Catheter - Catheter Urine Culture - Final Culture exhibits no growth. 04/29/24 22:20 Stool Stool Occult Blood (JERMAINE) - Final Indicators for Scoring Admitted with or Primary Diagnosis of CVA/Stroke: No Hx of CVA/Stroke: No Physical Exam Const alert General Appearance: cooperative HEENT normocephalic Eyes PERRL and EOMs intact bilaterally Neck supple, no JVD and no carotid bruits Neck Narrative: C-collar in place. Resp normal respiratory effort, normal air movement and clear to auscultation bilaterally Cardio regular rate and regular rhythm GI normal to inspection, nondistended, normoactive bowel sounds, non-tender and non-distended Extremity normal capillary refill General Extremity: Negative for edema Skin no rashes or lesions noted General Skin Exam: no breakdown Neuro Neuro Narrative: Left upper extremity weakness. Psych affect normal Appearance: appropriate Assessment & Plan Assessment/Plan (1) Debility: (2) Multiple falls: (3) Cervical stenosis of spinal canal: (4) Dysphagia: QUALIFIERS: Dysphagia type: pharyngeal phase Qualified Code(s): R13.13 - Dysphagia, pharyngeal phase (5) Anxiety: (6) BPPV (benign paroxysmal positional vertigo): (7) Osteoarthritis: (8) Muscle spasm: (9) Orthostatic hypotension: (10) GERD (gastroesophageal reflux disease): (11) BPH (benign prostatic hyperplasia): (12) Urinary tract infection: PLAN: Plan 83 year old male with below past medical history hospitalized for multiple falls2/2 cervical spinal stenosis, underwent c3-6 acdf 05/06/[address] Diego, admitted to for 3 hours daily rehabilitatin, strengthening, prior to disposition determination. * Debility - PT/OT. * Dysphagia - ST. * Pain - Tylenol 1000mg q8 prn, Oxycodone 2.5mg - 5mg q4h prn. * Bowel - Miralax 17gm daily, senna/colace 2 tablets bid, Dulcolax 10mg pr x 1 prn, MOM 30mL po x 1 prn. * Cervical spinal stenosis s/p decompression - Continue to wean C-collar over the next 10 days. * Sore throat - Cepacol 1 lozenge q2h prn. * Dry eyes - Artificial tears 2gtt ou q1h prn. * Nutrition - Ensure Plus 120mL 4x/day. * Neuropathic pain - Gabapentin 100mg bidcm. * Skin irritation - Calmoseptine topical bid. * Orthostatic hypotension - Midodrine 10mg tid. * Depression/Insomnia/appetite loss - Mirtazapine 15mg qhs. * GERD - Pantoprazole 40mg bid. 05/17/24814 <Electronically signed by Mariano Chan MD> Cosigner Signature (if applicable): CC: ~ Signed [facility] Work Phone: [phone]) 635-582304-09-2025 Progress note [facility] Medical Records Department [address] [place] [address] Progress Note - Rehab 05/17/24812 MR#: [id number] Acct: [id number] Name: YAS ROSA Rep #:[id number] : 1940 83 From: Mariano Chan MD PCP: Dr. Kwabena Menjivar MD Status :ADM IN Location: [place] [address] Subjective Subjective Patient seen, examined. He is eating breakfast in bed. His C-collar is off, hewas able to walk yesterday, he feels he is clearing his throat, when swallowing. His mood is baseline. Objective Data Objective Data Vital Signs: Vital Signs Temp Pulse Resp BP Pulse Ox O2 Del Method 98.3 F 68 17 125/67 H 94 Room Air 05/17/24 05:46 05/17/24 05:46 05/17/24 05:46 05/17/24 05:46 05/17/24 05:46 05/17/24 05:46 Oxygen Delivery Method Room Air Weight: 73.4 kg Body Mass Index (BMI) 24.5 Intake & Output: Intake and Output for Last 24 Hours 05/15/24 05/16/24 05/17/24 23:59 23:59 23:59 Intake Total 1360 / 1360 1140 / 1140 320 / 320 Output Total 300 / 300 100 / 100 Balance 1060 / 1060 1040 / 1040 320 / 320 Lab / Micro Data 05/11/24 06:03 05/11/24 06:03 Micro: Microbiology 05/10/24 11:50 Urine Catheter - Catheter Urine Culture - Final Enterobacter cloacae complex 04/27/24 22:05 Urine Catheter - Catheter Urine Culture - Final Culture exhibits no growth. 04/29/24 22:20 Stool Stool Occult Blood (JERMAINE) - Final Indicators for Scoring Admitted with or Primary Diagnosis of CVA/Stroke: No Hx of CVA/Stroke: No Physical Exam Const alert General Appearance: cooperative HEENT normocephalic Eyes PERRL and EOMs intact bilaterally Neck supple, no JVD and no carotid bruits Neck Narrative: C-collar in place. Resp normal respiratory effort, normal air movement and clear to auscultation bilaterally Cardio regular rate and regular rhythm GI normal to inspection, nondistended, normoactive bowel sounds, non-tender and non-distended Extremity normal capillary refill General Extremity: Negative for edema Skin no rashes or lesions noted General Skin Exam: no breakdown Neuro Neuro Narrative: Left upper extremity weakness. Psych affect normal Appearance: appropriate Assessment & Plan Assessment/Plan (1) Debility: (2) Multiple falls: (3) Cervical stenosis of spinal canal: (4) Dysphagia: QUALIFIERS: Dysphagia type: pharyngeal phase Qualified Code(s): R13.13 - Dysphagia, pharyngeal phase (5) Anxiety: (6) BPPV (benign paroxysmal positional vertigo): (7) Osteoarthritis: (8) Muscle spasm: (9) Orthostatic hypotension: (10) GERD (gastroesophageal reflux disease): (11) BPH (benign prostatic hyperplasia): (12) Urinary tract infection: PLAN: Plan 83 year old male with below past medical history hospitalized for multiple falls2/2 cervical spinalstenosis, underwent c3-6 acdf 05/06/[address] Diego, admitted to for 3 hours daily rehabilitatin, strengthening, prior to disposition determination. * Debility - PT/OT. * Dysphagia - ST. * Pain - Tylenol 1000mg q8 prn, Oxycodone 2.5mg - 5mg q4h prn. * Bowel - Miralax 17gm daily, senna/colace 2 tablets bid, Dulcolax 10mg pr x 1 prn, MOM 30mL po x 1prn. * Cervical spinal stenosis s/p decompression - Continue to wean C-collar over the next 10 days. * Sore throat - Cepacol 1 lozenge q2h prn. * Dry eyes - Artificial tears 2gtt ou q1h prn. * Nutrition - Ensure Plus 120mL 4x/day. * Neuropathic pain - Gabapentin 100mg bidcm. * Skin irritation - Calmoseptine topical bid. * Orthostatic hypotension - Midodrine 10mg tid. * Depression/Insomnia/appetite loss - Mirtazapine 15mg qhs. * GERD - Pantoprazole 40mg bid. 05/17/24814 Cosigner Signature (if applicable): CC: ~ Signed [facility]04-08-2025 Progress note Author Mariano Chan [facility] Note Date/Time May 16, 2024 8:25 am [facility] Medical Records Department [address] [place] [address] Progress Note - Rehab 05/16/24820 MR#: [id number] Acct: [id number] Name: YAS ROSA Rep #:[id number] : 1940 83 From: Mariano Chan MD PCP: Dr. Kwabena Menjivar MD Status :ADM IN Location: [place] [address] Subjective Subjective Patient seen, examined. Elayne from OT present. [place] is out of c-collar for breakfast. He was able to walk to the bathroom today instead of using wheelchair, plan is discharge to [facility] in 4 days. Objective Data Objective Data Vital Signs: Vital Signs Temp Pulse Resp BP Pulse Ox O2 Del Method 97.4 F L 57 L 16 107/53 L 94 Room Air 05/16/24 05:19 05/16/24 05:19 05/16/24 05:19 05/16/24 05:19 05/16/24 05:19 05/16/24 05:19 Oxygen Delivery Method Room Air Weight: 72.9 kg Body Mass Index (BMI) 24.3 Intake & Output: Intake and Output for Last 24 Hours 05/14/24 05/15/24 05/16/24 23:59 23:59 23:59 Intake Total 480 / 480 1360 / 1360 60 / 60 Output Total 300 / 300 Balance 480 / 480 1060 / 1060 60 / 60 Lab / Micro Data 05/11/24 06:03 05/11/24 06:03 Micro: Microbiology 05/10/24 11:50 Urine Catheter - Catheter Urine Culture - Final Enterobacter cloacae complex 04/27/24 22:05 Urine Catheter - Catheter Urine Culture - Final Culture exhibits no growth. 04/29/24 22:20 Stool Stool Occult Blood (JERMAINE) - Final Indicators for Scoring Admitted with or Primary Diagnosis of CVA/Stroke: No Hx of CVA/Stroke: No Physical Exam Const alert General Appearance: cooperative HEENT normocephalic Eyes PERRL and EOMs intact bilaterally Neck supple, no JVD and no carotid bruits Neck Narrative: C-collar in place. Resp normal respiratory effort, normal air movement and clear to auscultation bilaterally Cardio regular rate and regular rhythm GI normal to inspection, nondistended, normoactive bowel sounds, non-tender and non-distended Extremity normal capillary refill General Extremity: Negative for edema Skin no rashes or lesions noted General Skin Exam: no breakdown Neuro Neuro Narrative: Left upper extremity weakness. Psych affect normal Appearance: appropriate Assessment & Plan Assessment/Plan (1) Debility: (2) Multiple falls: (3) Cervical stenosis of spinal canal: (4) Dysphagia: QUALIFIERS: Dysphagia type: pharyngeal phase Qualified Code(s): R13.13 - Dysphagia, pharyngeal phase (5) Anxiety: (6) BPPV (benign paroxysmal positional vertigo): (7) Osteoarthritis: (8) Muscle spasm: (9) Orthostatic hypotension: (10) GERD (gastroesophageal reflux disease): (11) BPH (benign prostatic hyperplasia): (12) Urinary tract infection: PLAN: Plan 83 year old male with below past medical history hospitalized for multiple falls2/2 cervical spinal stenosis, underwent c3-6 acdf 05/06/[address] Diego, admitted to for 3 hours daily rehabilitatin, strengthening, prior to disposition determination. * Debility - PT/OT. * Dysphagia - ST. * Pain - Tylenol 1000mg q8 prn, Oxycodone 2.5mg - 5mg q4h prn. * Bowel - Miralax 17gm daily, senna/colace 2 tablets bid, Dulcolax 10mg pr x 1 prn, MOM 30mL po x 1 prn. * Cervical spinal stenosis s/p decompression - Dr. Diego recommends weaning C- Collar, goal of off C-Collar in 2 weeks time. * Sore throat - Cepacol 1 lozenge q2h prn. * Dry eyes - Artificial tears 2gtt ou q1h prn. * UTI - Urine culture growing 50,000 to 80,000 Enterobacter Cloacae complex, Cipro 250mg bid x 7 days thru 05/17/2024. * Nutrition - Ensure Plus 120mL 4x/day. * Neuropathic pain - Gabapentin 100mg bidcm. * Skin irritation - Calmoseptine topical bid. * Orthostatic hypotension - Midodrine 10mg tid. * Depression/Insomnia/appetite loss - Mirtazapine 15mg qhs. * GERD - Pantoprazole 40mg bid. 05/16/24824 <Electronically signed by Mariano Chan MD> Cosigner Signature (if applicable): CC: ~ Signed [facility] Work Phone: 1(152) 721-671704-08-2025 Progress note [facility] Medical Records Department [address] [place] [address] Progress Note - Rehab 05/16/24820 MR#: [id number] Acct: [id number] Name: YAS ROSA Rep #:[id number] : 1940 83 From: Mariano Chan MD PCP: Dr. Kwabena Menjivar MD Status :ADM IN Location: [place] [address] Subjective Subjective Patient seen, examined. Elayne from OT present. [place] is out of c-collar for breakfast. He was able towalk to the bathroom today instead of using wheelchair, plan is discharge to [facility] in 4 days. Objective Data Objective Data Vital Signs: Vital Signs Temp Pulse Resp BP Pulse Ox O2 Del Method 97.4 F L 57 L 16 107/53 L 94 Room Air 05/16/24 05:19 05/16/24 05:19 05/16/24 05:19 05/16/24 05:19 05/16/24 05:19 05/16/24 05:19 Oxygen Delivery Method Room Air Weight: 72.9 kg Body Mass Index (BMI) 24.3 Intake & Output: Intake and Output for Last 24 Hours 05/14/24 05/15/24 05/16/24 23:59 23:59 23:59 Intake Total 480 / 480 1360 / 1360 60 / 60 Output Total 300 / 300 Balance 480 / 480 1060 / 1060 60 / 60 Lab / Micro Data 05/11/24 06:03 05/11/24 06:03 Micro: Microbiology 05/10/24 11:50 Urine Catheter - Catheter Urine Culture - Final Enterobacter cloacae complex 04/27/24 22:05 Urine Catheter - Catheter Urine Culture - Final Culture exhibits no growth. 04/29/24 22:20 Stool Stool Occult Blood (JERMAINE) - Final Indicators for Scoring Admitted with or Primary Diagnosis of CVA/Stroke: No Hx of CVA/Stroke: No Physical Exam Const alert General Appearance: cooperative HEENT normocephalic Eyes PERRL and EOMs intact bilaterally Neck supple, no JVD and no carotid bruits Neck Narrative: C-collar in place. Resp normal respiratory effort, normal air movement and clear to auscultation bilaterally Cardio regular rate and regular rhythm GI normal to inspection, nondistended, normoactive bowel sounds, non-tender and non-distended Extremity normal capillary refill General Extremity: Negative for edema Skin no rashes or lesions noted General Skin Exam: no breakdown Neuro Neuro Narrative: Left upper extremity weakness. Psych affect normal Appearance: appropriate Assessment & Plan Assessment/Plan (1) Debility: (2) Multiple falls: (3) Cervical stenosis of spinal canal: (4) Dysphagia: QUALIFIERS: Dysphagia type: pharyngeal phase Qualified Code(s): R13.13 - Dysphagia, pharyngeal phase (5) Anxiety: (6) BPPV (benign paroxysmal positional vertigo): (7) Osteoarthritis: (8) Muscle spasm: (9) Orthostatic hypotension: (10) GERD (gastroesophageal reflux disease): (11) BPH (benign prostatic hyperplasia): (12) Urinary tract infection: PLAN: Plan 83 year old male with below past medical history hospitalized for multiple falls2/2 cervical spinalstenosis, underwent c3-6 acdf 05/06/[address] Diego, admitted to for 3 hours daily rehabilitatin, strengthening, prior to disposition determination. * Debility - PT/OT. * Dysphagia - ST. * Pain - Tylenol 1000mg q8 prn, Oxycodone 2.5mg - 5mg q4h prn. * Bowel - Miralax 17gm daily, senna/colace 2 tablets bid, Dulcolax 10mg pr x 1 prn, MOM 30mL po x 1prn. * Cervical spinal stenosis s/p decompression - Dr. Diego recommends weaning C- Collar, goal of off C-Collar in 2 weeks time. * Sore throat - Cepacol 1 lozenge q2h prn. * Dry eyes - Artificial tears 2gtt ou q1h prn. * UTI - Urine culture growing 50,000 to 80,000 Enterobacter Cloacae complex, Cipro 250mg bid x 7 days thru 05/17/2024. * Nutrition - Ensure Plus 120mL 4x/day. * Neuropathic pain - Gabapentin 100mg bidcm. * Skin irritation - Calmoseptine topical bid. * Orthostatic hypotension - Midodrine 10mg tid. * Depression/Insomnia/appetite loss - Mirtazapine 15mg qhs. * GERD - Pantoprazole 40mg bid. 05/16/2425 Cosigner Signature (if applicable): CC: ~ Signed [facility]04-07-2025 Progress note Author Mariano Dustin [facility] Note Date/Time May 15, 2024 7:49 am [facility] Medical Records Department [address] [place] [id number] Progress Note - Rehab 05/15/24 0747 MR#: [id number] Acct: [id number] Name: YAS ROSA Rep #:[id number] : 1940 83 From: Mariano Chan MD PCP: Dr. Kwabena Menjivar MD Status :ADM IN Location: [place] [address] Subjective Subjective Patient seen, examined. He told me therapy encourages him to feed himself, but it is difficult because he cannot bend his neck with C-collar on. Objective Data Objective Data Vital Signs: Vital Signs Temp Pulse Resp BP Pulse Ox O2 Del Method 98 F 64 16 160/95 H 96 Room Air 05/15/24 06:00 05/15/24 06:00 05/15/24 06:00 05/15/24 06:00 05/15/24 06:00 05/15/24 06:00 Oxygen Delivery Method Room Air Weight: 73.51 kg Body Mass Index (BMI) 24.5 Intake & Output: Intake and Output for Last 24 Hours 05/13/24 05/14/24 05/15/24 23:59 23:59 23:59 Intake Total 2009 480 / 480 Output Total 0 / 0 Balance 2009 480 / 480 Lab / Micro Data 05/11/24 06:03 05/11/24 06:03 Micro: Microbiology 05/10/24 11:50 Urine Catheter - Catheter Urine Culture - Final Enterobacter cloacae complex 04/27/24 22:05 Urine Catheter - Catheter Urine Culture - Final Culture exhibits no growth. 04/29/24 22:20 Stool Stool Occult Blood (JERMAINE) - Final Indicators for Scoring Admitted with or Primary Diagnosis of CVA/Stroke: No Hx of CVA/Stroke: No Physical Exam Const alert General Appearance: cooperative HEENT normocephalic Eyes PERRL and EOMs intact bilaterally Neck supple, no JVD and no carotid bruits Neck Narrative: C-collar in place. Resp normal respiratory effort, normal air movement and clear to auscultation bilaterally Cardio regular rate and regular rhythm GI normal to inspection, nondistended, normoactive bowel sounds, non-tender and non-distended Extremity normal capillary refill General Extremity: Negative for edema Skin no rashes or lesions noted General Skin Exam: no breakdown Neuro Neuro Narrative: Left upper extremity weakness. Psych affect normal Appearance: appropriate Assessment & Plan Assessment/Plan (1) Debility: (2) Multiple falls: (3) Cervical stenosis of spinal canal: (4) Dysphagia: QUALIFIERS: Dysphagia type: pharyngeal phase Qualified Code(s): R13.13 - Dysphagia, pharyngeal phase (5) Anxiety: (6) BPPV (benign paroxysmal positional vertigo): (7) Osteoarthritis: (8) Muscle spasm: (9) Orthostatic hypotension: (10) GERD (gastroesophageal reflux disease): (11) BPH (benign prostatic hyperplasia): (12) Urinary tract infection: PLAN: Plan 83 year old male with below past medical history hospitalized for multiple falls2/2 cervical spinal stenosis, underwent c3-6 acdf 05/06/[address] Diego, admitted to for 3 hours daily rehabilitatin, strengthening, prior to disposition determination. * Debility - PT/OT. * Dysphagia - ST. * Pain - Tylenol 1000mg q8 prn, Oxycodone 2.5mg - 5mg q4h prn. * Bowel - Miralax 17gm daily, senna/colace 2 tablets bid, Dulcolax 10mg pr x 1 prn, MOM 30mL po x 1 prn. * Cervical spinal stenosis s/p decompression - Dr. Diego recommends weaning C- Collar, will start weaning, will help him feed himself. * Sore throat - Cepacol 1 lozenge q2h prn. * Dry eyes - Artificial tears 2gtt ou q1h prn. * UTI - Urine culture growing 50,000 to 80,000 Enterobacter Cloacae complex, Cipro 250mg bid x 7 days. * Nutrition - Ensure Plus 120mL 4x/day. * Neuropathic pain - Gabapentin 100mg bidcm. * Skin irritation - Calmoseptine topical bid. * Orthostatic hypotension - Midodrine 10mg tid. * Depression/Insomnia/appetite loss - Mirtazapine 15mg qhs. * GERD - Pantoprazole 40mg bid. 05/15/24 0749 <Electronically signed by Mariano Chan MD> Cosigner Signature (if applicable): CC: ~ Signed [facility] Work Phone: 1(291) 302-736404-07-2025 Progress note [facility] Medical Records Department [address] [place] [address] Progress Note - Rehab 05/15/24 0747 MR#: [id number] Acct: [id number] Name: YAS ROSA Rep #:[id number] : 1940 83 From: Mariano Chan MD PCP: Dr. Kwabena Menjivar MD Status :ADM IN Location: [place] [address] Subjective Subjective Patient seen, examined. He told me therapy encourages him to feed himself, but it is difficult because he cannot bend his neck with C-collar on. Objective Data Objective Data Vital Signs: Vital Signs Temp Pulse Resp BP Pulse Ox O2 Del Method 98 F 64 16 160/95 H 96 Room Air 05/15/24 06:00 05/15/24 06:00 05/15/24 06:00 05/15/24 06:00 05/15/24 06:00 05/15/24 06:00 Oxygen Delivery Method Room Air Weight: 73.51 kg Body Mass Index (BMI) 24.5 Intake & Output: Intake and Output for Last 24 Hours 05/13/24 05/14/24 05/15/24 23:59 23:59 23:59 Intake Total 2009 480 / 480 Output Total 0 / 0 Balance 2009 480 / 480 Lab / Micro Data 05/11/24 06:03 05/11/24 06:03 Micro: Microbiology 05/10/24 11:50 Urine Catheter - Catheter Urine Culture - Final Enterobacter cloacae complex 04/27/24 22:05 Urine Catheter - Catheter Urine Culture - Final Culture exhibits no growth. 04/29/24 22:20 Stool Stool Occult Blood (JERMAINE) - Final Indicators for Scoring Admitted with or Primary Diagnosis of CVA/Stroke: No Hx of CVA/Stroke: No Physical Exam Const alert General Appearance: cooperative HEENT normocephalic Eyes PERRL and EOMs intact bilaterally Neck supple, no JVD and no carotid bruits Neck Narrative: C-collar in place. Resp normal respiratory effort, normal air movement and clear to auscultation bilaterally Cardio regular rate and regular rhythm GI normal to inspection, nondistended, normoactive bowel sounds, non-tender and non-distended Extremity normal capillary refill General Extremity: Negative for edema Skin no rashes or lesions noted General Skin Exam: no breakdown Neuro Neuro Narrative: Left upper extremity weakness. Psych affect normal Appearance: appropriate Assessment & Plan Assessment/Plan (1) Debility: (2) Multiple falls: (3) Cervical stenosis of spinal canal: (4) Dysphagia: QUALIFIERS: Dysphagia type: pharyngeal phase Qualified Code(s): R13.13 - Dysphagia, pharyngeal phase (5) Anxiety: (6) BPPV (benign paroxysmal positional vertigo): (7) Osteoarthritis: (8) Muscle spasm: (9) Orthostatic hypotension: (10) GERD (gastroesophageal reflux disease): (11) BPH (benign prostatic hyperplasia): (12) Urinary tract infection: PLAN: Plan 83 year old male with below past medical history hospitalized for multiple falls2/2 cervical spinalstenosis, underwent c3-6 acdf 05/06/[address] Diego, admitted to for 3 hours daily rehabilitatin, strengthening, prior to disposition determination. * Debility - PT/OT. * Dysphagia - ST. * Pain - Tylenol 1000mg q8 prn, Oxycodone 2.5mg - 5mg q4h prn. * Bowel - Miralax 17gm daily, senna/colace 2 tablets bid, Dulcolax 10mg pr x 1 prn, MOM 30mL po x 1prn. * Cervical spinal stenosis s/p decompression - Dr. Diego recommends weaning C- Collar, will start weaning, will help him feed himself. * Sore throat - Cepacol 1 lozenge q2h prn. * Dry eyes - Artificial tears 2gtt ou q1h prn. * UTI - Urine culture growing 50,000 to 80,000 Enterobacter Cloacae complex, Cipro 250mg bid x 7 days. * Nutrition - Ensure Plus 120mL 4x/day. * Neuropathic pain - Gabapentin 100mg bidcm. * Skin irritation - Calmoseptine topical bid. * Orthostatic hypotension - Midodrine 10mg tid. * Depression/Insomnia/appetite loss - Mirtazapine 15mg qhs. * GERD - Pantoprazole 40mg bid. 05/15/24 0749 Cosigner Signature (if applicable): CC: ~ Signed [facility]04-04-2025 Progress note Author Mariano Dustin [facility] Note Date/Time May 12, 2024 8:08 am [facility] Medical Records Department [address] [place] [address] Progress Note - Rehab 05/12/24 0802 MR#: [id number] Acct: [id number] Name: YAS ROSA Rep #:[id number] : 1940 83 From: Mariano Chan MD PCP: Dr. Kwabena Menjivar MD Status :ADM IN Location: [place] [address] Subjective Subjective Patient seen, examined. Dr. Diego saw patient yesterday, starting to wean C- collar. [place] is eating breakfast in bed. He appears happier today, he is smiling. He is progressing with therapy, currently on pureed diet. Also beingtreated for uti, he says the burning with urination has improved. Objective Data Objective Data Vital Signs: Vital Signs Temp Pulse Resp BP Pulse Ox O2 Del Method 98.3 F 60 16 101/60 95 Room Air 05/12/24 05:02 05/12/24 05:02 05/12/24 05:02 05/12/24 05:02 05/12/24 05:02 05/12/24 05:02 Oxygen Delivery Method Room Air Weight: 71.5 kg Body Mass Index (BMI) 23.8 Intake & Output: Intake and Output for Last 24 Hours 05/10/24 05/11/24 05/12/24 23:59 23:59 23:59 Intake Total 800 / 800 870 / 870 240 / 240 Output Total 420 / 420 Balance 380 / 380 870 / 870 240 / 240 Lab / Micro Data 05/11/24 06:03 05/11/24 06:03 Micro: Microbiology 05/10/24 11:50 Urine Catheter - Catheter Urine Culture - Preliminary GNR lactose fence rider 04/27/24 22:05 Urine Catheter - Catheter Urine Culture - Final Culture exhibits no growth. 04/29/24 22:20 Stool Stool Occult Blood (JERMAINE) - Final Indicators for Scoring Admitted with or Primary Diagnosis of CVA/Stroke: No Hx of CVA/Stroke: No Physical Exam Const alert General Appearance: cooperative HEENT normocephalic Eyes PERRL and EOMs intact bilaterally Neck supple, no JVD and no carotid bruits Neck Narrative: C-collar in place. Resp normal respiratory effort, normal air movement and clear to auscultation bilaterally Cardio regular rate and regular rhythm GI normal to inspection, nondistended, normoactive bowel sounds, non-tender and non-distended Extremity normal capillary refill General Extremity: Negative for edema Skin no rashes or lesions noted General Skin Exam: no breakdown Neuro Neuro Narrative: Left upper extremity weakness. Psych affect normal Appearance: appropriate Assessment & Plan Assessment/Plan (1) Debility: (2) Multiple falls: (3) Cervical stenosis of spinal canal: (4) Dysphagia: QUALIFIERS: Dysphagia type: pharyngeal phase Qualified Code(s): R13.13 - Dysphagia, pharyngeal phase (5) Anxiety: (6) BPPV (benign paroxysmal positional vertigo): (7) Osteoarthritis: (8) Muscle spasm: (9) Orthostatic hypotension: (10) GERD (gastroesophageal reflux disease): (11) BPH (benign prostatic hyperplasia): (12) Urinary tract infection: PLAN: Plan 83 year old male with below past medical history hospitalized for multiple falls2/2 cervical spinal stenosis, underwent c3-6 acdf 05/06/[address] Diego, admitted to for 3 hours daily rehabilitatin, strengthening, prior to disposition determination. * Debility - PT/OT. * Dysphagia - ST. * Pain - Tylenol 1000mg q8 prn, Oxycodone 2.5mg - 5mg q4h prn. * Bowel - Miralax 17gm daily, senna/colace 2 tablets bid, Dulcolax 10mg pr x 1 prn, MOM 30mL po x 1 prn. * Sore throat - Cepacol 1 lozenge q2h prn. * Dry eyes - Artificial tears 2gtt ou q1h prn. * UTI - Urine culture growing 50,000 to 80,000 gnr lactose fence rider, Cipro 250mg bid x 7 days. * Nutrition - Ensure Plus 120mL 4x/day. * Neuropathic pain - Gabapentin 100mg bidcm. * Skin irritation - Calmoseptine topical bid. * Orthostatic hypotension - Midodrine 10mg tid. * Depression/Insomnia/appetite loss - Mirtazapine 15mg qhs. * GERD - Pantoprazole 40mg bid. 05/12/24 0808 <Electronically signed by Mariano Chan MD> Cosigner Signature (if applicable): CC: ~ Signed [facility] Work Phone: 1(463) 464-628204-04-2025 Progress note [facility] Medical Records Department [address] [place] [address] Progress Note - Rehab 05/12/24 0802 MR#: [id number] Acct: [id number] Name: YAS ROSA Rep #:[id number] : 1940 83 From: Mariano Chan MD PCP: Dr. Kwabena Menjivar MD Status :ADM IN Location: [place] [address] Subjective Subjective Patient seen, examined. Dr. Diego saw patient yesterday, starting to wean C- collar. [place] is eating breakfast in bed. He appears happier today, he is smiling. He is progressing with therapy, currently on pureed diet. Also beingtreated for uti, he says the burning with urination has improved. Objective Data Objective Data Vital Signs: Vital Signs Temp Pulse Resp BP Pulse Ox O2 Del Method 98.3 F 60 16 101/60 95 Room Air 05/12/24 05:02 05/12/24 05:02 05/12/24 05:02 05/12/24 05:02 05/12/24 05:02 05/12/24 05:02 Oxygen Delivery Method Room Air Weight: 71.5 kg Body Mass Index (BMI) 23.8 Intake & Output: Intake and Output for Last 24 Hours 05/10/24 05/11/24 05/12/24 23:59 23:59 23:59 Intake Total 800 / 800 870 / 870 240 / 240 Output Total 420 / 420 Balance 380 / 380 870 / 870 240 / 240 Lab / Micro Data 05/11/24 06:03 05/11/24 06:03 Micro: Microbiology 05/10/24 11:50 Urine Catheter - Catheter Urine Culture - Preliminary GNR lactose fence rider 04/27/24 22:05 Urine Catheter - Catheter Urine Culture - Final Culture exhibits no growth. 04/29/24 22:20 Stool Stool Occult Blood (JERMAINE) - Final Indicators for Scoring Admitted with or Primary Diagnosis of CVA/Stroke: No Hx of CVA/Stroke: No Physical Exam Const alert General Appearance: cooperative HEENT normocephalic Eyes PERRL and EOMs intact bilaterally Neck supple, no JVD and no carotid bruits Neck Narrative: C-collar in place. Resp normal respiratory effort, normal air movement and clear to auscultation bilaterally Cardio regular rate and regular rhythm GI normal to inspection, nondistended, normoactive bowel sounds, non-tender and non-distended Extremity normal capillary refill General Extremity: Negative for edema Skin no rashes or lesions noted General Skin Exam: no breakdown Neuro Neuro Narrative: Left upper extremity weakness. Psych affect normal Appearance: appropriate Assessment & Plan Assessment/Plan (1) Debility: (2) Multiple falls: (3) Cervical stenosis of spinal canal: (4) Dysphagia: QUALIFIERS: Dysphagia type: pharyngeal phase Qualified Code(s): R13.13 - Dysphagia, pharyngeal phase (5) Anxiety: (6) BPPV (benign paroxysmal positional vertigo): (7) Osteoarthritis: (8) Muscle spasm: (9) Orthostatic hypotension: (10) GERD (gastroesophageal reflux disease): (11) BPH (benign prostatic hyperplasia): (12) Urinary tract infection: PLAN: Plan 83 year old male with below past medical history hospitalized for multiple falls2/2 cervical spinalstenosis, underwent c3-6 acdf 05/06/[address] Diego, admitted to for 3 hours daily rehabilitatin, strengthening, prior to disposition determination. * Debility - PT/OT. * Dysphagia - ST. * Pain - Tylenol 1000mg q8 prn, Oxycodone 2.5mg - 5mg q4h prn. * Bowel - Miralax 17gm daily, senna/colace 2 tablets bid, Dulcolax 10mg pr x 1 prn, MOM 30mL po x 1prn. * Sore throat - Cepacol 1 lozenge q2h prn. * Dry eyes - Artificial tears 2gtt ou q1h prn. * UTI - Urine culture growing 50,000 to 80,000 gnr lactose fence rider, Cipro 250mg bid x 7 days. * Nutrition - Ensure Plus 120mL 4x/day. * Neuropathic pain - Gabapentin 100mg bidcm. * Skin irritation - Calmoseptine topical bid. * Orthostatic hypotension - Midodrine 10mg tid. * Depression/Insomnia/appetite loss - Mirtazapine 15mg qhs. * GERD - Pantoprazole 40mg bid. 05/12/24 0808 Cosigner Signature (if applicable): CC: ~ Signed [facility]04-03-2025 Progress note Author Ciro Diego [facility] Note Date/Time May 11, 2024 2:35 pm [facility] Medical Records Department [address] [place] [address] Progress Note - Orthopedic 05/11/24 1426 MR#: [id number] Acct: [id number] Name: YAS ROSA Brigido Rep #:[id number] : 1940 83 From: Ciro Diego MD PCP: Dr. Kwabena Menjivar MD Status :ADM IN Location: [place] [address] Subjective Subjective Saw patient in [facility] today as a 2-week follow-up. Patient comfortable sitting in a chair with collar. Said that he has been doingphysical therapy and has been walking with a walker but mentions only about 33 feet. Continues to have weakness in the left upper extremity. Has some dysphagia and is being followed by speech pathology. Denies any aspiration. Objective Data Objective Data Vital Signs: Vital Signs Temp Pulse Resp BP Pulse Ox O2 Del Method 97.6 F L 61 16 101/53 L 96 Room Air 05/11/24 06:00 05/11/24 06:00 05/11/24 06:00 05/11/24 06:00 05/11/24 06:00 05/11/24 10:00 Oxygen Delivery Method Room Air Weight: 156 lb 8.451 oz Body Mass Index (BMI) 23.7 Intake & Output: Intake and Output for Last 24 Hours 05/09/24 05/10/24 05/11/24 23:59 23:59 23:59 Intake Total 1390 / 1390 800 / 800 600 / 600 Output Total 650 / 750 420 / 420 Balance 740 / 640 380 / 380 600 / 600 Lab / Micro Data 05/11/24 06:03 05/11/24 06:03 Labs: Laboratory Results - last 24 hr 05/11/24 06:03: WBC 9.9, RBC 4.12 L, Hgb 12.3 L, Hct 36.7 L, MCV 89.1, MCH 29.9,MCHC 33.5, RDW Std Deviation 41.8, RDW Coeff of Delia 12.8, Plt Count 232, MPV 8.8, Sodium 137, Potassium 4.5, Chloride 104, Carbon Dioxide 23.4, Anion Gap 10,BUN 34 H, Creatinine 0.96, Estim Creat Clear Calc 57.40, Est GFR (MDRD) Non-Af 79, BUN/Creatinine Ratio 35.5 H, Glucose 116 H, Calcium 8.6 Micro: Microbiology 05/10/24 11:50 Urine Catheter - Catheter Urine Culture - Preliminary GNR lactose fence rider 04/27/24 22:05 Urine Catheter - Catheter Urine Culture - Final Culture exhibits no growth. 04/29/24 22:20 Stool Stool Occult Blood (JERMAINE) - Final Radiography Diagnostic Testing: Radiology Impression Cervical Spine X-Ray 05/10/24 15:00 IMPRESSION: Stable ACDF hardware. No acute fracture or traumatic listhesis. Reading Location: [facility] Physical Exam Narrative Examination the neck shows incision well-healed. Steri-Strips were removed and cleaned with alcohol swabs. Left open. Neurologic evaluation shows stable weakness in left upper extremity. Left elbowflexion is grade 1 mostly from brachioradialis. Shoulder abduction is weak on both sides. Lower extremity shows grade 4 strength at baseline. Assessment & Plan Assessment/Plan (1) Status post cervical spinal fusion: PLAN: Plan X-rays of cervical spine done yesterday show hardware and bone graft in good position. Prevertebral soft tissue shadow noticed. Okay to start weaning off the cervical collar over the next 1 to 2 weeks. This would involve removing the collar for about 1 to 2 hours during the day and thenincreasing the number of hours that he is out of the collar until he is completely weaned off for the next 2 weeks. Okay to start gentle neck range of motion exercises while he is off the collar. Appreciate speech pathology management. Agree with modified diet until dysphagia resolves. Continue PT OT as tolerated. Patient has significant weakness at baseline due to severe spinal cord compression. Explained to him that some of the function may not improve, but he should continue trying with physical therapy to get the highest level of function possible. Patient will see me back for his 6-week follow-up in a month in the clinic. Patient was in agreement. 05/11/24 1435 <Electronically signed by Ciro Diego MD> Cosigner Signature (if applicable): CC: ~ Signed [facility] Work Phone: [phone]) 696-173804-03-2025 Progress note [facility] Medical Records Department [address] [place] [address] Progress Note - Orthopedic 05/11/24 1426 MR#: [id number] Acct: [id number] Name: YAS ROSA Rep #:[id number] : 1940 83 From: Ciro Diego MD PCP: Dr. Kwabena Menjivar MD Status :ADM IN Location: [place] [address] Subjective Subjective Saw patient in [facility] today as a 2-week follow-up. Patient comfortable sitting in a chair with collar. Said that he has been doingphysical therapy andhas been walking with a walker but mentions only about 33 feet. Continues to have weakness in the left upper extremity. Has some dysphagia and is being followed by speech pathology. Denies any aspiration. Objective Data Objective Data Vital Signs: Vital Signs Temp Pulse Resp BP Pulse Ox O2 Del Method 97.6 F L 61 16 101/53 L 96 Room Air 05/11/24 06:00 05/11/24 06:00 05/11/24 06:00 05/11/24 06:00 05/11/24 06:00 05/11/24 10:00 Oxygen Delivery Method Room Air Weight: 156 lb 8.451 oz Body Mass Index (BMI) 23.7 Intake & Output: Intake and Output for Last 24 Hours 05/09/24 05/10/24 05/11/24 23:59 23:59 23:59 Intake Total 1390 / 1390 800 / 800 600 / 600 Output Total 650 / 750 420 / 420 Balance 740 / 640 380 / 380 600 / 600 Lab / Micro Data 05/11/24 06:03 05/11/24 06:03 Labs: Laboratory Results - last 24 hr 05/11/24 06:03: WBC 9.9, RBC 4.12 L, Hgb 12.3 L, Hct 36.7 L, MCV 89.1, MCH 29.9,MCHC 33.5, RDW Std Deviation 41.8, RDW Coeff of Delia 12.8, Plt Count 232, MPV 8.8, Sodium 137, Potassium 4.5, Chloride 104, Carbon Dioxide 23.4, Anion Gap 10,BUN 34 H, Creatinine 0.96, Estim Creat Clear Calc 57.40, Est GFR (MDRD) Non- Af 79, BUN/Creatinine Ratio 35.5 H, Glucose 116 H, Calcium 8.6 Micro: Microbiology 05/10/24 11:50 Urine Catheter - Catheter Urine Culture - Preliminary GNR lactose fence rider 04/27/24 22:05 Urine Catheter - Catheter Urine Culture - Final Culture exhibits no growth. 04/29/24 22:20 Stool Stool Occult Blood (JERMAINE) - Final Radiography Diagnostic Testing: Radiology Impression Cervical Spine X-Ray 05/10/24 15:00 IMPRESSION: Stable ACDF hardware. No acute fracture or traumatic listhesis. Reading Location: [facility] Physical Exam Narrative Examination the neck shows incision well-healed. Steri-Strips were removed and cleaned with alcoholswabs. Left open. Neurologic evaluation shows stable weakness in left upper extremity. Left elbowflexion is grade 1 mostly from brachioradialis. Shoulder abduction is weak on both sides. Lower extremity shows grade 4 strength at baseline. Assessment & Plan Assessment/Plan (1) Status post cervical spinal fusion: PLAN: Plan X-rays of cervical spine done yesterday show hardware and bone graft in good position. Prevertebralsoft tissue shadow noticed. Okay to start weaning off the cervical collar over the next 1 to 2 weeks. This would involve removing the collar for about 1 to 2 hours during the day and thenincreasing the number of hours that he is out of the collar until he is completely weaned off for the next 2 weeks. Okay to start gentle neck range of motion exercises while he is off the collar. Appreciate speech pathology management. Agree with modified diet until dysphagia resolves. Continue PT OT as tolerated. Patient has significant weakness at baseline due to severe spinal cordcompression. Explained to him that some of the function may not improve, but he should continue trying with physical therapy to get the highest level of function possible. Patient will see me back for his 6-week follow-up in a month in the clinic. Patient was in agreement. 05/11/24 1435 Cosigner Signature (if applicable): CC: ~ Signed [facility]04-02-2025 Progress note Author Mariano Chan [facility] Note Date/Time May 10, 2024 5:41 pm [facility] Medical Records Department [address] [place] [address] Progress Note - Rehab 05/10/24 1731 MR#: [id number] Acct: [id number] Name: YAS ROSA Rep #:[id number] : 1940 83 From: Mariano Chan MD PCP: Dr. Kwabena Menjivar MD Status :ADM IN Location: [address] Subjective Subjective Patient seen, examined. He seems a little down, he is progressing slowly with therapy. He c/o dysuria with nursing staff today, urinalysis sent, urine culture pending. Objective Data Objective Data Vital Signs: Vital Signs Temp Pulse Resp BP Pulse Ox O2 Del Method 98.3 F 69 16 110/63 95 Room Air 05/10/24 06:00 05/10/24 06:00 05/10/24 06:00 05/10/24 06:00 05/10/24 06:00 05/10/24 06:00 Oxygen Delivery Method Room Air Weight: 70.8 kg Body Mass Index (BMI) 23.6 Intake & Output: Intake and Output for Last 24 Hours 05/08/24 05/09/24 05/10/24 23:59 23:59 23:59 Intake Total 1960 / 1960 1390 / 1390 360 / 360 Output Total 1500 / 1500 650 / 750 320 / 320 Balance 460 / 460 740 / 640 40 / 40 Lab / Micro Data Attestation: I reviewed the patient's lab results. 05/04/24 07:15 05/04/24 07:15 Labs: Laboratory Results - last 24 hr 05/10/24 11:50: Urine Color Yellow, Urine Clarity Sl. Cloudy, Urine pH 6.0, Ur Specific [place] 1.015, Urine Protein 500 H, Urine Glucose (UA) Normal, Urine Ketones Negative, Urine Occult Blood 250 H, Urine Nitrite Positive H, Urine Bilirubin Negative, Urine Urobilinogen Normal, Ur Leukocyte Esterase 500 H, Urine RBC 10- 25 SEEN, Urine WBC 25-50 SEEN, Ur Squamous Epith Cells 0 SEEN, Urine Bacteria 2+, Urine Mucus 0 SEEN Micro: Microbiology 04/27/24 22:05 Urine Catheter - Catheter Urine Culture - Final Culture exhibits no growth. 04/29/24 22:20 Stool Stool Occult Blood (JERMAINE) - Final Radiography Diagnostic Testing: Radiology Impression Cervical Spine X-Ray 05/10/24 15:00 IMPRESSION: Stable ACDF hardware. No acute fracture or traumatic listhesis. Reading Location: [id number] Indicators for Scoring Admitted with or Primary Diagnosis of CVA/Stroke: No Hx of CVA/Stroke: No Physical Exam Const alert General Appearance: cooperative HEENT normocephalic Eyes PERRL and EOMs intact bilaterally Neck supple, no JVD and no carotid bruits Resp normal respiratory effort, normal air movement and clear to auscultation bilaterally Cardio regular rate and regular rhythm GI normal to inspection, nondistended, normoactive bowel sounds, non-tender and non-distended Extremity normal capillary refill General Extremity: Negative for edema Skin no rashes or lesions noted General Skin Exam: no breakdown Neuro Neuro Narrative: Weakness in all extremities. Psych affect normal Appearance: appropriate Assessment & Plan Assessment/Plan (1) Debility: (2) Multiple falls: (3) Cervical stenosis of spinal canal: (4) Dysphagia: QUALIFIERS: Dysphagia type: pharyngeal phase Qualified Code(s): R13.13 - Dysphagia, pharyngeal phase (5) Anxiety: (6) BPPV (benign paroxysmal positional vertigo): (7) Osteoarthritis: (8) Muscle spasm: (9) Orthostatic hypotension: (10) GERD (gastroesophageal reflux disease): (11) BPH (benign prostatic hyperplasia): (12) Urinary tract infection: PLAN: Plan 83 year old male with below past medical history hospitalized for multiple falls2/2 cervical spinal stenosis, underwent c3-6 acdf 05/06/[address] Diego, admitted to for 3 hours daily rehabilitatin, strengthening, prior to disposition determination. * Debility - PT/OT. * Dysphagia - ST. * Pain - Tylenol 1000mg q8 prn, Oxycodone 2.5mg - 5mg q4h prn. * Bowel - Miralax 17gm daily, senna/colace 2 tablets bid, Dulcolax 10mg pr x 1 prn, MOM 30mL po x 1 prn. * Sore throat - Cepacol 1 lozenge q2h prn. * Dry eyes - Artificial tears 2gtt ou q1h prn. * UTI - Quigley discontinued yesterday, urinalysis c/w uti, urine culture pending, Cipro 250mg bid x 7 days. * Nutrition - Ensure Plus 120mL 4x/day. * Neuropathic pain - Gabapentin 100mg bidcm. * Skin irritation - Calmoseptine topical bid. * Orthostatic hypotension - Midodrine 10mg tid. * Depression/Insomnia/appetite loss - Mirtazapine 15mg qhs. * GERD - Pantoprazole 40mg bid. 05/10/24 1741 <Electronically signed by Mariano Chan MD> Cosigner Signature (if applicable): CC: ~ Signed [facility] Work Phone: 1(807) 251-245204-02-2025 Progress note [facility] Medical Records Department [address] [place] [address] Progress Note - Rehab 05/10/24 1731 MR#: [id number] Acct: [id number] Name: YAS ROSA Rep #:[id number] : 1940 83 From: Mariano Chan MD PCP: Dr. Kwabena Menjivar MD Status :ADM IN Location: [place] [address] Subjective Subjective Patient seen, examined. He seems a little down, he is progressing slowly with therapy. He c/o dysuria with nursing staff today, urinalysis sent, urine culture pending. Objective Data Objective Data Vital Signs: Vital Signs Temp Pulse Resp BP Pulse Ox O2 Del Method 98.3 F 69 16 110/63 95 Room Air 05/10/24 06:00 05/10/24 06:00 05/10/24 06:00 05/10/24 06:00 05/10/24 06:00 05/10/24 06:00 Oxygen Delivery Method Room Air Weight: 70.8 kg Body Mass Index (BMI) 23.6 Intake & Output: Intake and Output for Last 24 Hours 05/08/24 05/09/24 05/10/24 23:59 23:59 23:59 Intake Total 1960 / 1960 1390 / 1390 360 / 360 Output Total 1500 / 1500 650 / 750 320 / 320 Balance 460 / 460 740 / 640 40 / 40 Lab / Micro Data Attestation: I reviewed the patient's lab results. 05/04/24 07:15 05/04/24 07:15 Labs: Laboratory Results - last 24 hr 05/10/24 11:50: Urine Color Yellow, Urine Clarity Sl. Cloudy, Urine pH 6.0, Ur Specific [place] 1.015, Urine Protein 500 H, Urine Glucose (UA) Normal, Urine Ketones Negative, Urine Occult Blood 250 H, Urine Nitrite Positive H, Urine Bilirubin Negative, Urine Urobilinogen Normal, Ur Leukocyte Esterase 500 H, Urine RBC 10-25 SEEN, Urine WBC 25-50 SEEN, Ur Squamous Epith Cells 0 SEEN, Urine Bacteria2+, Urine Mucus 0 SEEN Micro: Microbiology 04/27/24 22:05 Urine Catheter - Catheter Urine Culture - Final Culture exhibits no growth. 04/29/24 22:20 Stool Stool Occult Blood (JERMAINE) - Final Radiography Diagnostic Testing: Radiology Impression Cervical Spine X-Ray 05/10/24 15:00 IMPRESSION: Stable ACDF hardware. No acute fracture or traumatic listhesis. Reading Location: [facility] Indicators for Scoring Admitted with or Primary Diagnosis of CVA/Stroke: No Hx of CVA/Stroke: No Physical Exam Const alert General Appearance: cooperative HEENT normocephalic Eyes PERRL and EOMs intact bilaterally Neck supple, no JVD and no carotid bruits Resp normal respiratory effort, normal air movement and clear to auscultation bilaterally Cardio regular rate and regular rhythm GI normal to inspection, nondistended, normoactive bowel sounds, non-tender and non-distended Extremity normal capillary refill General Extremity: Negative for edema Skin no rashes or lesions noted General Skin Exam: no breakdown Neuro Neuro Narrative: Weakness in all extremities. Psych affect normal Appearance: appropriate Assessment & Plan Assessment/Plan (1) Debility: (2) Multiple falls: (3) Cervical stenosis of spinal canal: (4) Dysphagia: QUALIFIERS: Dysphagia type: pharyngeal phase Qualified Code(s): R13.13 - Dysphagia, pharyngeal phase (5) Anxiety: (6) BPPV (benign paroxysmal positional vertigo): (7) Osteoarthritis: (8) Muscle spasm: (9) Orthostatic hypotension: (10) GERD (gastroesophageal reflux disease): (11) BPH (benign prostatic hyperplasia): (12) Urinary tract infection: PLAN: Plan 83 year old male with below past medical history hospitalized for multiple falls2/2 cervical spinalstenosis, underwent c3-6 acdf 05/06/[address] Diego, admitted to for 3 hours daily rehabilitatin, strengthening, prior to disposition determination. * Debility - PT/OT. * Dysphagia - ST. * Pain - Tylenol 1000mg q8 prn, Oxycodone 2.5mg - 5mg q4h prn. * Bowel - Miralax 17gm daily, senna/colace 2 tablets bid, Dulcolax 10mg pr x 1 prn, MOM 30mL po x 1prn. * Sore throat - Cepacol 1 lozenge q2h prn. * Dry eyes - Artificial tears 2gtt ou q1h prn. * UTI - Quigley discontinued yesterday, urinalysis c/w uti, urine culture pending, Cipro 250mg bid x 7 days. * Nutrition - Ensure Plus 120mL 4x/day. * Neuropathic pain - Gabapentin 100mg bidcm. * Skin irritation - Calmoseptine topical bid. * Orthostatic hypotension - Midodrine 10mg tid. * Depression/Insomnia/appetite loss - Mirtazapine 15mg qhs. * GERD - Pantoprazole 40mg bid. 05/10/24 1741 Cosigner Signature (if applicable): CC: ~ Signed [facility]04-02-2025 Radiology Diagnostic study note [facility] Imaging Services [address], [place] [address] Cerv Spine 2 or 3 Views MR#: [id number] Acct: [id number] Name: YAS ROSA Rep #: [id number] : 1940 M 83 From: Lisa Bailey MD PCP: Dr. Kwabena Menjivar MD Status: ADM IN Study:Cerv Spine 2 or 3 Views Date of Exam: 05/10/24 Exam# [id number] Ordering Dr: Sherwin Clark PROCEDURE: CERV SPINE 2 OR 3 VIEWS 05/10/2024 REASON FOR EXAM: 83-year-old male, F/U CERVICAL PAIN/SURGERY; AP/LAT UPRIGHT FILMS TECHNIQUE: 2 views of the cervical spine. COMPARISON: C-spine radiographs 04/2024. FINDINGS: Vertebrae: Stable ACDF hardware and intervertebral disc spacers at C3-6. Diffuse osseous demineralization. No acute osseous fracture. Disc spaces: Moderate degenerative disc disease at C6-7. Alignment: No traumatic listhesis. Soft tissues: Grossly unremarkable. Interval drainage catheter removal. Other: The upper lungs are grossly unremarkable. RAD/Cerv Spine 2 or 3 Views IMPRESSION: Stable ACDF hardware. No acute fracture or traumatic listhesis. Reading Location: [id number] CC: ART HISTORIAN-Bryce Clark; Dr. Kwabena Menjivar MD ~ Balance Wheel Motion Inspector: Signed [facility]04-01-2025 Progress note Author Corazon Wright [facility] Note Date/Time May 09, 2024 12:5 2pm [facility] Medical Records Department [address] [place] [address] Progress Note 05/09/24 1035 MR#: [id number] Acct: [id number] Name: YAS ROSA Rep #:[id number] : 1940 83 From: Corazon Wright DO PCP: Dr. Kwabena Menjivar MD Status :ADM IN Location: [place] [address]-1 Subjective Subjective Afebrile VSS -blood pressure this a.m. was 102/62 with a heart rate of 59. Maintaining appropriate oxygen saturation on RA-94 to 97%. Oral intake - FOOD food intake is improving. He ate 50 to 100% of his last 6 meals. FLUIDS good. Fluid intake yesterday was 1960. Urine output was 1504 apositive fluid balance of 460 mL. Has had 3 postvoid residuals since the Quigley catheter was discontinued yesterdaya.m. The first was 243 cc and the postvoid residual at 3:30 AM today was 51. Discussed with nursing - no problems that need addressed Reviewed the THERAPY notes Medication list reviewed. Denies pain. He gets lightheaded in the AM when first getting out of bed but, after the Midodrine it improves. Tolerated therapy and MBS today with no lightheadedness. Slept well last night. Appetite and intake has picked up. Denies chest pain, shortness of breath, palpitations, nausea/vomiting/abdominal pains/abdominal cramping, dysuria and calf pain. Still having some difficulty with swallowing. Tells me that he did not have nocturia last night. Reviewed the MBS report. Diagnosed with moderate oropharyngeal dysphagia. He had incomplete laryngeal vestibule closure resulting in penetration across all liquid consistencies and primarily silent aspiration of thin liquids. Contrast retention was noted at C6-C7 level suspicious for a diverticulum. There was trace to mild retrograde flow of contrast from the esophagus into the piriforms. Speech therapy recommended pur?ed textures and mildly thickened liquids. Will need to keep after him to maintain good fluid intake. He can have Villegas water. Objective Data Objective Data Vital Signs: Vital Signs Temp Pulse Resp BP Pulse Ox O2 Del Method 97.9 F 59 L 14 102/62 94 Room Air 05/09/24 06:00 05/09/24 06:00 05/09/24 06:00 05/09/24 06:00 05/09/24 06:00 05/09/24 06:00 Oxygen Delivery Method Room Air Weight: 157 lb 10.088 oz Body Mass Index (BMI) 23.8 Intake & Output: Intake and Output for Last 24 Hours 05/07/24 05/08/24 05/09/24 23:59 23:59 23:59 Intake Total 1670 / 1670 1960 / 1960 320 / 320 Output Total 1400 / 1400 1500 / 1500 300 / 300 Balance 270 / 270 460 / 460 20 / 20 Lab / Micro Data 05/04/24 07:15 05/04/24 07:15 Micro: Microbiology 04/27/24 22:05 Urine Catheter - Catheter Urine Culture - Final Culture exhibits no growth. 04/29/24 22:20 Stool Stool Occult Blood (JERMAINE) - Final Physical Exam Const alert and no apparent distress Constitutional Narrative: Much more engaged today when talking with me. Voice is projecting much better and he is making good eye contact with me. He is asking appropriate questions. Has been cooperative with therapy. Sitting in the recliner at the bedside when I entered the room. General Appearance: cooperative HEENT Mouth: dry mucous membranes Resp normal respiratory effort, normal air movement and clear to auscultation bilaterally Effort and Inspection: Negative for tachypneic Cardio regular rate, regular rhythm and no gallops GI normal to inspection, nondistended, normoactive bowel sounds, soft to palpation and non-tender Extremity no calf tenderness General Extremity: Negative for edema Skin Wound Narrative: The incision is healing with no dehiscence. There is bruising but, no erythema of the anterior neck. [place] J collar is in place. Psych Psych Narrative: Much more engaged today. voice is projecting well. More expression on his faceand asking appropriate questions. 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 (11) Bilateral arm weakness: PLAN: Left arm is flaccid. Has paresthesias of both hands. (12) Postural dizziness with near syncope: (13) Orthostatic hypotension: (14) Severe dehydration: PLAN: resolved. (15) Urine retention: PLAN: Resolved. NOT on Flomax due to severe orthostatic hypotension but, passeda voiding trial on 05/08/24. (16) GERD with esophagitis: QUALIFIERS: Esophagitis bleeding: without hemorrhage Qualified Code(s): K21.00 - Gastro-esophageal reflux disease with esophagitis, without bleeding (17) Laryngeal edema: PLAN: With cobblestoning of the posterior pharynx. Possible diverticulum and suspected esophageal dysmotility. Continue Protonix 40 mg BID and recommend follow up with Dr. Austin following DC from rehab. (18) History of IBS: (19) Anxiety and depression: PLAN: Tolerating Remeron at 15 mg Q HS with no adverse SE's. Would increase to 22.5 mg Q HS on Wednesday or Wednesday if he continues to tolerate. Appetite and intake are better and he is sleeping well at night now. PLAN: Plan 1. Continue therapy 2. Change diet to pur?ed textures and mildly thickened liquids with Villegas water protocol 3. Check a CBC and BMP on . 4. Continue Remeron at 15 mg p.o. nightly. Consider increasing the dose to 22.5 mg nightly early next week. Highly recommend psychiatry/psychotherapy following transfer to SNF on 05/20/2024. 5. Continue Protonix 40 mg p.o. twice daily for reflux esophagitis/laryngeal edema secondary to chronic free-flowing reflux. Recommend follow-up with gastroenterology postdischarge from rehab for evaluation for reflux esophagitis/esophageal diverticulum and esophageal dysmotility. Charges/Coding Visit Charges Inpatient E&M: 33349 Subs Hosp L1 05/09/24 9033 <Electronically signed by Corazon Wright DO> Corazon Wright DO Cosigner Signature (if applicable): CC: ~ Signed [facility] Work Phone: [phone] 607-784804-01-2025 Procedure note [facility] Speech Pathology [address] [place] [address] Modified Barium Swallow Study MR#: [id number] Acct: [id number] Name: YAS ROSA Rep #:[id number] : 1940 83 From: Lalita jacobson M.A., [facility]-CONCRETE FORM SETTER AND FINISHER Modified Barium Swallow Patient Information Study Date: 05/09/24 Study Time: 10:00 Direct Billable Minutes: 120 Total Minutes procedure & reportin Diagnosis: Pharyngeal dysphagia Referring Physician: Corazon Wright Medical History: The patient presented to [facility] ED 04/19/2024 after a fall at home w/ lightheadedness. He reports several falls in the past 6 months w/ lightheadedness and near syncope. In the ED, he had weakness of theL arm, an occipital scalp hematoma and bruising/hematoma of the left face. He denied TORRES but, he complained of neck pain. He had a fall a few weeks prior and broke his nose. A NC CTB was obtained. It did not show any acute findings other than a Left maxillary fx and fluid in the Left maxillary sinus. CTA head and neck showed no significant areas of stenosis and no more than special occlusion. No aneurysms or large vascular malformations. MRI was ordered and showed no acute intracranial abnormality, specifically no evidence of acute ischemia. MRI of thecervical spine showed acquired multilevel spinal stenosis, severe at C3-C4 and C4-C5. There was mild to severe multilevel foraminal narrowing.There was myelomalacia at the level of C4 and C5 likely related to severe spinal canal stenosis. Orthopedics consulted. Dr. Diego noted that the patient had preoperative baseline dysphagia. On 04/26/2024, the patient underwent C3-6 anterior cervical decompression/discectomy and fusion. Post operatively dysphagia increased. ST not consulted during patient's acute stay. The patient was transferred to inpatient rehab for PT, OT, and ST. ? He underwent a FEES on 05/02/24 which revealed Moderate pharyngeal dysphagia w/ recommendation for Minced and Moist Textures and Thin Liquids, Medication Administration: Crushed in puree, CompensatoryStrategies: Sips 1 at a time, double swallow w/ solids (minced/moist textures), Small Bites, Small Sips, Slow Rate, Multiple Swallows, Alternate bites/solids and sips/liquids, Sitting upright and Remain sitting upright for 30 minutes after PO intake. Per FEES report, a MBSS w/ esophageal screening was recommended to assess concerns for esophageal dysphagia given hx of GERD w/ esophagitis and retrogradeflow of sequential thin through UES during FEES. ? The patient was downgraded to pureed textures at bedside d/t reports of diet intolerance w/ pharyngeal stasis/globus sensation. Current Diet Ordered: puree/thin Mental Status: WNL Respiratory Status: Oxygenating on Room Air Penetration-Aspiration Scale Penetration-Aspiration Scale: OBJECTIVE ASSESSMENT OF SWALLOW FUNCTION (QUANTITATIVE ? PER TRIAL): PENETRATION / ASPIRATION SCALE (CAR): 1 = does not enter airway 2 = enters airway/above vocal folds/ejected 3 = enters airway/above vocal folds/not ejected 4 = enters airway/contacts vocal folds/ejected 5 = enters airway/contacts vocal folds/not ejected 6 = enters airway/below vocal folds/ejected 7 = enters airway/below vocal folds/not ejected despite effort 8 = enters airway/below vocal folds/no effort VIDEOFLOROSCOPIC SCALE SCORE (CAR): Grade I = aspiration of material that has penetrated into the laryngeal vestibule, intact cough reflex Grade II = aspiration < 10 % of the bolus, intact cough reflex Grade III = aspiration of < 10 % of the bolus, reduced cough reflex or aspiration of > 10 % of the bolus, intact cough reflex Grade IV = aspiration of > 10 % of the bolus, reduced cough reflex Penetration-Aspiration Scale Score Thin Liquid via teaspoon: Result: 8= enters airway/below vocal folds/no effort Thin Liquid via teaspoon Trial 2: Result: 3= enters airways/above vocal folds/not ejected Thin Liquid via small single sip: cup: Result: 8= enters airway/below vocal folds/no effort Thin Liquid via small single sip: cup Trial 2: Result: 7= enters airways/below vocal folds/not ejected despite effort Thin Liquid via single sip: straw: Result: 8= enters airway/below vocal folds/no effort [place] Thick Liquid via teaspoon: Result: 2= enter airway/above vocal folds/ejected [place] Thick Liquid via small single sip: cup: Result: 3= enters airways/above vocal folds/not ejected [place] Thick Liquid via small single sip: cup: Result: 2= enter airway/above vocal folds/ejected Pudding via teaspoon: Result: 1= does not enter airway Cookie: Result: 1= does not enter airway Comment: 02/15 of cookie trialed Thin Liquid via single sip: straw Trial 2: Result: 3= enters airways/above vocal folds/not ejected Thin Liquid via single sip: straw Trial 3: Result: 2= enter airway/above vocal folds/ejected [place] Thick Liquid via single sip: straw: Result: 1= does not enter airway [place] Thick Liquid via single sip: straw Trial 2: Result: 3= enters airways/above vocal folds/not ejected [place] Thick Liquid via single sip: straw: Result: 3= enters airways/above vocal folds/not ejected Oral Phase Labial Seal: Escape progressing to mid-chin Tongue Control During Bolus Hold: Cohesive bolus between tongue to palatal seal Bolus Preparation/Mastication: Slow prolonged chewing/mashing with complete recollection Bolus Transport/Lingual Motion: Slowed tongue motion Oral Residue: Residue collection on oral structures Pharyngeal Phase Initiation of Pharyngeal Swallow: Bolus head at posterior laryngeal surgace of epiglottis Soft Palate Elevation: No bolus between soft palate and pharyngeal wall Laryngeal Elevation: Partial superior movement thyroid cart/partial apprx aryt- epig petiole Anterior Hyoid Excursion: Partial anterior movement Epiglottic Movement: Complete inversion Laryngeal Vestibule Closure at Height of Swallow: Incomplete; narrow column of air/contrast in laryngeal vestibule Pharyngeal Stripping Wave: Present - diminished Pharyngoesophageal Segment Opening: Parital distension and partial duration; parital obstruction offlow Tongue Base Retraction: Narrow column of contrast between tongue base & post. pharyngeal wall Pharyngeal Residue: Collection of residue within or on pharyngeal structures Esophageal Phase Esophageal Clearance: Esophageal retention Treatment Strategies Effects of treatment strategies attemped:: * Unable to trial compensatory postural strategies d/t neck collar precluding ROM. * Attempted hard effortful swallow w/ thin - not effective. * A cued cough and reswallow was effective to eject contrast from the laryngeal vestibule, but not the trachea. Diagnosis/Impression Diagnosis: moderate oropharyngeal dysphagia Impression: The oral phase is characterized by... * slowed mastication * cohesive bolus formation * slowed lingual motion for AP bolus transportation * spillage of liquids over the tongue base The pharyngeal phase is characterized by... * mildly delayed swallow onset w/ the liquid boluses reaching the posterior laryngeal surface of the epiglottis prior to swallow onset * incomplete hyolaryngeal excursion resulting in incomplete laryngeal vestibule closure resulting in penetration across all liquid consistencies and primarily SILENT ASPIRATION of thin liquids (one instance of weak and ineffective cough in response to aspirate) * small sips by straw were effective to eliminate * contrast lined the pharyngeal structures (worse w/ pudding/cookie than w/ liquids), a second swallow was partially effective to ameliorate the residue The esophageal phase is characterized by... * contrast retention noted at the C6-7 level, suspicious for diverticulum * trace-mild retrograde flow of contrast from the esophagus into the pyriforms Recommendations Diet: Puree Textures and Mildly Thick Liquids Comment: OK for VILLEGAS WATER Compensatory Strategies: Small Bites, Small Sips, Sips by straw only, Multiple Swallows, Sitting upright and Remain sitting upright for 30 minutes after PO intake Supervision: Assist as needed Recommend Repeat Modified Barium Swallow: Yes Need for Skilled Speech Therapy Services: Yes Recommended Referrals: GI Consult (esophageal retention w/ retrograde flow through the PES) Education Completed: 1. Described result of evaluation. and 2. Pt understands evaluation & agrees with goals and treatment plan. Status Active ST Patient: Active Contact Information [facility] Speech Therapy:: Lalita Grande M.A. CONCRETE [employer]TER AND FINISHER Speech-Language Pathologist [address] [place] [address] [email or web address] [phone] 05/09/24 1253 marti Daigle CCC-CONCRETE FORM SETTER AND FINISHER> Date/Time Lalita Grande M.A., CCC-CONCRETE FORM SETTER AND FINISHER Co-Signature Required for all Medicare patients Date/Time Co-Signature CC: ~ [facility]04-01-2025 Progress note [facility] Medical Records Department [address] [place] [address] Progress Note 05/09/24 1035 MR#: [id number] Acct: [id number] Name: YAS ROSA Rep #:[id number] : 1940 83 From: Corazon Wright DO PCP: Dr. Kwabena Menjivar MD Status :ADM IN Location: [place] [address]-1 Subjective Subjective Afebrile VSS -blood pressure this a.m. was 102/62 with a heart rate of 59. Maintaining appropriate oxygen saturation on RA-94 to 97%. Oral intake - FOOD food intake is improving. He ate 50 to 100% of his last 6 meals. FLUIDS good. Fluid intake yesterday was 1960. Urine output was 1504 apositive fluid balance of 460 mL. Has had 3 postvoid residuals since the Quigley catheter was discontinued yesterdaya.m. The first was 243 cc and the postvoid residual at 3:30 AM today was 51. Discussed with nursing - no problems that need addressed Reviewed the THERAPY notes Medication list reviewed. Denies pain. He gets lightheaded in the AM when first getting out of bed but, after the Midodrine it improves. Tolerated therapy and MBS today with no lightheadedness. Slept well last night. Appetiteand intake has picked up. Denies chest pain, shortness of breath, palpitations, nausea/vomiting/abdominal pains/abdominal cramping, dysuria and calf pain. Still having some difficulty with swallowing. Tells me that he did not have nocturia last night. Reviewed the MBS report. Diagnosed with moderate oropharyngeal dysphagia. He had incomplete laryngeal vestibule closure resulting in penetration across all liquid consistencies and primarily silent aspiration of thin liquids. Contrast retention was noted at C6-C7 level suspicious for a diverticulum. There was trace to mild retrograde flow of contrast from the esophagus into the piriforms. Speech therapy recommended pur?ed textures and mildly thickened liquids. Will need to keep after him to maintain good fluid intake. He can have Villegas water. Objective Data Objective Data Vital Signs: Vital Signs Temp Pulse Resp BP Pulse Ox O2 Del Method 97.9 F 59 L 14 102/62 94 Room Air 05/09/24 06:00 05/09/24 06:00 05/09/24 06:00 05/09/24 06:00 05/09/24 06:00 05/09/24 06:00 Oxygen Delivery Method Room Air Weight: 157 lb 10.088 oz Body Mass Index (BMI) 23.8 Intake & Output: Intake and Output for Last 24 Hours 05/07/24 05/08/24 05/09/24 23:59 23:59 23:59 Intake Total 1670 / 1670 1959 / 1959 320 / 320 Output Total 1400 / 1400 1500 / 1500 300 / 300 Balance 270 / 270 460 / 460 20 / 20 Lab / Micro Data 05/04/24 07:15 05/04/24 07:15 Micro: Microbiology 04/27/24 22:05 Urine Catheter - Catheter Urine Culture - Final Culture exhibits no growth. 04/29/24 22:20 Stool Stool Occult Blood (JERMAINE) - Final Physical Exam Const alert and no apparent distress Constitutional Narrative: Much more engaged today when talking with me. Voice is projecting much better and he is making goodeye contact with me. He is asking appropriate questions. Has been cooperative with therapy. Sittingin the recliner at the bedside when I entered the room. General Appearance: cooperative HEENT Mouth: dry mucous membranes Resp normal respiratory effort, normal air movement and clear to auscultation bilaterally Effort and Inspection: Negative for tachypneic Cardio regular rate, regular rhythm and no gallops GI normal to inspection, nondistended, normoactive bowel sounds, soft to palpation and non-tender Extremity no calf tenderness General Extremity: Negative for edema Skin Wound Narrative: The incision is healing with no dehiscence. There is bruising but, no erythema of the anterior neck. [place] J collar is in place. Psych Psych Narrative: Much more engaged today. voice is projecting well. More expression on his faceand asking appropriate questions. 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 (11) Bilateral arm weakness: PLAN: Left arm is flaccid. Has paresthesias of both hands. (12) Postural dizziness with near syncope: (13) Orthostatic hypotension: (14) Severe dehydration: PLAN: resolved. (15) Urine retention: PLAN: Resolved. NOT on Flomax due to severe orthostatic hypotension but, passeda voiding trial on 05/08/24. (16) GERD with esophagitis: QUALIFIERS: Esophagitis bleeding: without hemorrhage Qualified Code(s): K21.00 - Gastro-esophageal reflux disease with esophagitis, without bleeding (17) Laryngeal edema: PLAN: With cobblestoning of the posterior pharynx. Possible diverticulum and suspected esophageal dysmotility. Continue Protonix 40 mg BID and recommend follow up with Dr. Austin following DC from rehab. (18) History of IBS: (19) Anxiety and depression: PLAN: Tolerating Remeron at 15 mg Q HS with no adverse SE's. Would increase to 22.5 mg Q HS on Wednesday or Wednesday if he continues to tolerate. Appetite and intake are better and he is sleeping well atnight now. PLAN: Plan 1. Continue therapy 2. Change diet to pur?ed textures and mildly thickened liquids with Villegas water protocol 3. Check a CBC and BMP on . 4. Continue Remeron at 15 mg p.o. nightly. Consider increasing the dose to 22.5 mg nightly early next week. Highly recommend psychiatry/psychotherapy following transfer to SNF on 05/20/2024. 5. Continue Protonix 40 mg p.o. twice daily for reflux esophagitis/laryngeal edema secondary to chronic free-flowing reflux. Recommend follow-up with gastroenterology postdischarge from rehab for evaluation for reflux esophagitis/esophageal diverticulum and esophageal dysmotility. Charges/Coding Visit Charges Inpatient E&M: 33795 Subs Hosp L1 05/09/24 1252 Corazon Wright DO Cosigner Signature (if applicable): CC: ~ Signed [facility]03-31-2025 Progress note Author Corazon Wright [facility] Note Date/Time May 08, 2024 2:3 8pm [facility] Medical Records Department [address] [place] [address] Progress Note 05/08/24 0956 MR#: [id number] Acct: [id number] Name: YAS ROSA Rep #:[id number] : 1940 83 From: Corazon Wright DO PCP: Dr. Kwabena Menjivar MD Status :ADM IN Location: [facility]-3 Subjective Subjective [place] was seen on team rounds today. Afebrile VSS -over the weekend the blood pressure has ranged from 109/57 to 160/68. The heart rate has ranged from 52-68. The OT notes state he felt lightheaded todaytoward the end of his session with therapy and BP was 66/29. OT started with him at 0812 today. He does not get Midodrine until 0800. Maintaining appropriate oxygen saturation on RA Oral intake - FOOD highly variable intake. FLUIDS fluid intake has improved. Yesterday he took 1670 and then had 1400 out for a fluid balance of 270. Discussed with nursing - no problems that need addressed Reviewed the THERAPY notes - refused speech therapy today. Did not get in all his time with OT. OT reports that the R shoulder is very close to subluxing. Medication list reviewed. Not taking anything for pain. When I asked him why he was not doing therapy today.......he told me that he feels they are make him do things that are silly. He complains that ST is not helping.......he is still having trouble swallowing. He refused ST today. Continues to c/o numbness in his hands. OT had him taking apart a jigsaw puzzleand putting the pieces in a bag.......he says this was hard to do and silly. When I pointed out this activity works on hand strength, dexterity and coordination he just said I don't know. He answers most questions with I don't know. Denies pain. The only thing he c/o is numbness and his muscles not working. Seems to be under the impression that surgery should have fixed this. Once again I discussed with him and his ex- that with prolonged compression of the spinal cord sometimes the numbness and weakness will be permanent. The surgery hopefully prevents the neurologic deficits from progressing. We have discussed this on more than 1 occasion since he arrived on rehab. Ex- wonders why he is having a BP problem now and he did not before........I pointedout that no one was checking his BP when standing and that the recurrent falls and lightheadedness could certainly have been due to orthostatic hypotension. Guera pointed out that he did not have a Quigley but, he was urinating every 30-60 minutes, getting up multiple times at night to urinate, dribbling after urination and having hesitancy when trying to start his stream which was very slow. these are all signs of obstructive uropathy.....which could be due to BPH or neurogenic bladder. Objective Data Objective Data Vital Signs: Vital Signs Temp Pulse Resp BP Pulse Ox O2 Del Method 97.9 F 57 L 15 109/57 L 94 Room Air 05/08/24 05:14 05/08/24 05:14 05/08/24 05:14 05/08/24 05:14 05/08/24 05:14 05/08/24 05:14 Oxygen Delivery Method Room Air Weight: 158 lb 1.143 oz Body Mass Index (BMI) 23.9 Intake & Output: Intake and Output for Last 24 Hours 05/06/24 05/07/24 05/08/24 23:59 23:59 23:59 Intake Total 1490 / 1490 1670 / 1670 450 / 450 Output Total 2875 / 2875 1400 / 1400 900 / 900 Balance -1385 / -1385 270 / 270 -450 / -450 Lab / Micro Data 05/04/24 07:15 05/04/24 07:15 Micro: Microbiology 04/27/24 22:05 Urine Catheter - Catheter Urine Culture - Final Culture exhibits no growth. 04/29/24 22:20 Stool Stool Occult Blood (JERMAINE) - Final Physical Exam Const no apparent distress Constitutional Narrative: Flat affect. Not cooperating with therapy. apathetic. Neck Neck Narrative: He is in a rigid cervical collar. Resp clear to auscultation bilaterally Effort and Inspection: able to speak in complete sentences; Negative for tachypneic Cardio regular rate, regular rhythm and no gallops Cardio Narrative: No ectopy GI normal to inspection, nondistended, normoactive bowel sounds, soft to palpation and non-tender GI Narrative: No guarding with palpation. Positive ventral hernia. Having regular BM's but,is incontinent of stool and can not feel when he is having a BM. Extremity no calf tenderness Skin General Skin Exam: no breakdown Rashes: no rashes Wound Narrative: Has bruising of the anterior neck. Incision is intact with no dehiscence. No DC from the wound and no leon-incisional erythema. 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: QUALIFIERS: Encounter type: subsequent encounter Qualified Code(s): S06.9X9D - Unspecified intracranial injury with loss of consciousness of unspecified duration, subsequent encounter (10) Left maxillary fracture: QUALIFIERS: Encounter type: subsequent encounter Fracture type: closed (11) Dysphagia: QUALIFIERS: Dysphagia type: pharyngeal phase Qualified Code(s): R13.13 - Dysphagia, pharyngeal phase (12) Bilateral arm weakness: (13) Postural dizziness with near syncope: (14) Severe dehydration: (15) Orthostatic hypotension: (16) Urine retention: (17) GERD with esophagitis: QUALIFIERS: Esophagitis bleeding: without hemorrhage Qualified Code(s): K21.00 - Gastro-esophageal reflux disease with esophagitis, without bleeding (18) History of IBS: (19) Anxiety and depression: PLAN: Plan 1. Continue therapy. I reminded him that if he can not do 3 hours of therapy he will have to be down graded. I asked him to think about may he may want to go at DC from therapy. 2. Encouraged him to increase fluid intake to 2 Liters per day. 3. Can not use Flomax due to severe orthostatic hypotension.......despite Midodrine. TSH and Cortrosyn stim test are normal. Had sx of urinary tract obstruction long before recent surgery. Will need to follow up with urology following DC from rehab. 4. Change the dosing of the Midodrine to 0700, 1100 and 1500.....therapy startsearly in the morning here and it is likely the hypotension with OT today was related to therapy starting shortly after the AM dose of Midodrine. 5. Continue Gabapentin - no longer c/o burning pain in the legs since this was started. 6. His psychiatric problems impair his ability to do therapy. He needs a psychiatrist to optimize medication and therapy......this will not happen while he is on inpt rehab. It can happen when he is transferred to SNF. 7. Reinforced that we need him to participate in therapy. If he is unable to do 3 hours over the next 72 hours will need to downgrade to an SNF. SW gave himand his a list of local SNF's to choose from. Charges/Coding Visit Charges Inpatient E&M: 84917 Subs Hosp L2 05/08/24 1438 <Electronically signed by Corazon Wright DO> Corazon Wright DO Cosigner Signature (if applicable): CC: ~ Signed [facility] Work Phone: [phone]) 417-777003-31-2025 Progress note [facility] Medical Records Department [address] [place] [address] Progress Note 05/08/24 0956 MR#: [id number] Acct: [id number] Name: YAS ROSA Rep #:[id number] : 1940 83 From: Corazon Wright DO PCP: Dr. Kwabena Menjivar MD Status :ADM IN Location: [place] [address] Subjective Subjective Milan was seen on team rounds today. Afebrile VSS -over the weekend the blood pressure has ranged from 109/57 to 160/68. The heart rate has ranged from 52-68. The OT notes state he felt lightheaded todaytoward the end of his session with therapyand BP was 66/29. OT started with him at 0812 today. He does not get Midodrine until 0800. Maintaining appropriate oxygen saturation on RA Oral intake - FOOD highly variable intake. FLUIDS fluid intake has improved. Yesterday he took 1670and then had 1400 out for a fluid balance of 270. Discussed with nursing - no problems that need addressed Reviewed the THERAPY notes - refused speech therapy today. Did not get in all his time with OT. OT reports that the R shoulder is very close to subluxing. Medication list reviewed. Not taking anything for pain. When I asked him why he was not doing therapy today.......he told me that he feels they are make him do things that are silly. He complains that ST is not helping.......he is still having trouble swallowing. He refused ST today. Continues to c/o numbness in his hands. OT had him taking apart a jigsaw puzzleand putting the pieces in a bag.......he says this was hard to do and silly. When I pointed out this activity works on hand strength, dexterity and coordination he just said I don't know.He answers most questions with I don't know. Denies pain. The only thing he c/o is numbness and his muscles not working. Seems to be under theimpression that surgery should have fixed this. Once again I discussed with him and his ex- that with prolonged compression of the spinal cord sometimes the numbness and weakness will be permanent. The surgery hopefully prevents the neurologic deficits from progressing. We have discussed thison more than 1 occasion since he arrived on rehab. Ex- wonders why he is having a BP problem now and he did not before........I pointedout that no one was checking his BP when standing and that the recurrent falls and lightheadedness could certainly have been due to orthostatic hypotension. Glennjohnagatha pointed out that he did not have a Quigley but, he was urinating every 30-60 minutes, getting up multiple times at night to urinate, dribbling after urination and having hesitancy when trying to start his stream which was very slow. these are all signs of obstructive uropathy.....which could be dueto BPH or neurogenic bladder. Objective Data Objective Data Vital Signs: Vital Signs Temp Pulse Resp BP Pulse Ox O2 Del Method 97.9 F 57 L 15 109/57 L 94 Room Air 05/08/24 05:14 05/08/24 05:14 05/08/24 05:14 05/08/24 05:14 05/08/24 05:14 05/08/24 05:14 Oxygen Delivery Method Room Air Weight: 158 lb 1.143 oz Body Mass Index (BMI) 23.9 Intake & Output: Intake and Output for Last 24 Hours 05/06/24 05/07/24 05/08/24 23:59 23:59 23:59 Intake Total 1490 / 1490 1670 / 1670 450 / 450 Output Total 2875 / 2875 1400 / 1400 900 / 900 Balance -1385 / -1385 270 / 270 -450 / -450 Lab / Micro Data 05/04/24 07:15 05/04/24 07:15 Micro: Microbiology 04/27/24 22:05 Urine Catheter - Catheter Urine Culture - Final Culture exhibits no growth. 04/29/24 22:20 Stool Stool Occult Blood (JERMAINE) - Final Physical Exam Const no apparent distress Constitutional Narrative: Flat affect. Not cooperating with therapy. apathetic. Neck Neck Narrative: He is in a rigid cervical collar. Resp clear to auscultation bilaterally Effort and Inspection: able to speak in complete sentences; Negative for tachypneic Cardio regular rate, regular rhythm and no gallops Cardio Narrative: No ectopy GI normal to inspection, nondistended, normoactive bowel sounds, soft to palpation and non-tender GI Narrative: No guarding with palpation. Positive ventral hernia. Having regular BM's but,is incontinent of stool and can not feel when he is having a BM. Extremity no calf tenderness Skin General Skin Exam: no breakdown Rashes: no rashes Wound Narrative: Has bruising of the anterior neck. Incision is intact with no dehiscence. No DC from the wound and no leon-incisional erythema. 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: QUALIFIERS: Encounter type: subsequent encounter Qualified Code(s): S06.9X9D - Unspecified intracranial injury with loss of consciousness of unspecified duration, subsequent encounter (10) Left maxillary fracture: QUALIFIERS: Encounter type: subsequent encounter Fracture type: closed (11) Dysphagia: QUALIFIERS: Dysphagia type: pharyngeal phase Qualified Code(s): R13.13 - Dysphagia, pharyngeal phase (12) Bilateral arm weakness: (13) Postural dizziness with near syncope: (14) Severe dehydration: (15) Orthostatic hypotension: (16) Urine retention: (17) GERD with esophagitis: QUALIFIERS: Esophagitis bleeding: without hemorrhage Qualified Code(s): K21.00 - Gastro-esophageal reflux disease with esophagitis, without bleeding (18) History of IBS: (19) Anxiety and depression: PLAN: Plan 1. Continue therapy. I reminded him that if he can not do 3 hours of therapy he will have to be down graded. I asked him to think about may he may want to go at DC from therapy. 2. Encouraged him to increase fluid intake to 2 Liters per day. 3. Can not use Flomax due to severe orthostatic hypotension.......despite Midodrine. TSH and Cortrosyn stim test are normal. Had sx of urinary tract obstruction long before recent surgery. Will need to follow up with urology following DC from rehab. 4. Change the dosing of the Midodrine to 0700, 1100 and 1500.....therapy startsearly in the morninghere and it is likely the hypotension with OT today was related to therapy starting shortly after the AM dose of Midodrine. 5. Continue Gabapentin - no longer c/o burning pain in the legs since this was started. 6. His psychiatric problems impair his ability to do therapy. He needs a psychiatrist to optimize medication and therapy......this will not happen while he is on inpt rehab. It can happen when he is transferred to SNF. 7. Reinforced that we need him to participate in therapy. If he is unable to do 3 hours over the next 72 hours will need to downgrade to an SNF. SW gave himand his a list of local SNF's to choose from. Charges/Coding Visit Charges Inpatient E&M: 48621 Subs Hosp L2 05/08/24 4586 Corazon Wright DO Cosigner Signature (if applicable): CC: ~ Signed [facility]03-28-2025 Progress note Author Corazon Wright [facility] Note Date/Time May 05, 2024 1:2 0pm [facility] Medical Records Department [address] [place] [address] Progress Note 05/05/24 1103 MR#: [id number] Acct: [id number] Name: YAS ROSA Rep #:[id number] : 1940 83 From: Corazon Wright DO PCP: Dr. Kwabena Menjivar MD Status :ADM IN Location: [id number] Subjective Subjective Afebrile Heart rate continues to be slow at times even with the discontinuation of Robaxin. The heart rate over the past 48 hours has ranged from 51-72. The heart rate today is 72. Blood pressure lying down today is 102/50 with a pulse rate of 72. Blood pressure sitting with his legs dependent was 103/47 with a heart rate of 80. Blood pressure standing was 106/37 with a pulse rate of 75. Still with very poor oral fluid intake despite being admonished to increase his fluid intake to help manage the orthostatic hypotension. IV fluids were discontinued yesterday. Appetite remains poor. Had a large BM while sitting on the toilet today. He had to be coached by the occupational therapist to lean forward and bear down to have a bowel movement. He was unaware that he had a bowel movement. Required max assist x 2 for hygiene post BM and management of clothing. Weight today is 163 pounds and 3 ounces which is down from 170 pounds and 1 ounce on 04/28/2024. Denies burning pain in the legs today. Tolerating the Gabapentin. speech therapy ate lunch with him today and he fed himself half the meal and theother half she helped him with but, he ate everything and drank an Ensure. Tells me he slept well last night. Denies pain in the legs today. Also denies chest pain, cough, palpitations, shortness of breath. Has built up utensils to eat with. Objective Data Objective Data Vital Signs: Vital Signs Temp Pulse Resp BP Pulse Ox O2 Del Method 98.8 F 72 16 102/50 L 97 Room Air 05/05/24 05:17 05/05/24 09:00 05/05/24 05:17 05/05/24 09:00 05/05/24 05:17 05/05/24 05:17 Oxygen Delivery Method Room Air Weight: 163 lb 3.2 oz Body Mass Index (BMI) 24.7 Intake & Output: Intake and Output for Last 24 Hours 05/03/24 05/04/24 05/05/24 23:59 23:59 23:59 Intake Total 3993.75 / 3993.75 2452.92 / 2512.92 660 / 660 Output Total 4325 / 4325 2300 / 2300 1550 / 1550 Balance -331.25 / -331.25 152.92 / 212.92 -890 / -890 Lab / Micro Data 05/04/24 07:15 05/04/24 07:15 Micro: Microbiology 04/27/24 22:05 Urine Catheter - Catheter Urine Culture - Final Culture exhibits no growth. 04/29/24 22:20 Stool Stool Occult Blood (JERMAINE) - Final Physical Exam Const alert, oriented x3 and no apparent distress Neck Neck Narrative: He is in a rigid cervical collar. Resp normal respiratory effort, normal air movement and clear to auscultation bilaterally Effort and Inspection: able to speak in complete sentences; Negative for tachypneic Cardio regular rate, regular rhythm, no murmurs, no rub and no gallops Cardio Narrative: No ectopy GI normal to inspection, nondistended, normoactive bowel sounds, soft to palpation,non-tender and no bruits GI Narrative: No guarding with palpation. Positive ventral hernia. Extremity no calf tenderness Skin General Skin Exam: no breakdown Rashes: no rashes Psych Psych Narrative: Slept better last night but still complaining of decreased appetite and oral food intake has been very erratic. If there is no one in there with him he does not eat, doesn't even try. Does not appear anxious. 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: QUALIFIERS: Encounter type: subsequent encounter Qualified Code(s): S06.9X9D - Unspecified intracranial injury with loss of consciousness of unspecified duration, subsequent encounter (10) Left maxillary fracture: QUALIFIERS: Encounter type: subsequent encounter Fracture type: closed (11) Dysphagia: QUALIFIERS: Dysphagia type: pharyngeal phase Qualified Code(s): R13.13 - Dysphagia, pharyngeal phase (12) Bilateral arm weakness: (13) Postural dizziness with near syncope: (14) Severe dehydration: (15) Orthostatic hypotension: (16) Urine retention: (17) GERD with esophagitis: QUALIFIERS: Esophagitis bleeding: without hemorrhage Qualified Code(s): K21.00 - Gastro-esophageal reflux disease with esophagitis, without bleeding (18) History of IBS: (19) Anxiety and depression: PLAN: Plan 1. Continue therapy 2. Needs a lot of encouragement to try and do thing for himself. Hoping this will improve with Remeron but, suspect he has been like this most of his life. He is sleeping better. 3. Will have NA sit with him for meals and feed if necessary. 4. Suspect he will need to go to a facility [facility] from [facility]. 5. Needs to follow up with psychiatry for meds and psychotherapy. Charges/Coding Visit Charges Inpatient E&M: 87986 Subs Hosp L1 05/05/24 1320 <Electronically signed by Corazon Wright DO> Corazon Wright DO Cosigner Signature (if applicable): CC: ~ Signed [facility] Work Phone: 1(486) 460-831103-28-2025 Progress note [facility] Medical Records Department [address] [place] [address] Progress Note 05/05/24 1103 MR#: [id number] Acct: [id number] Name: YAS ROSA Rep #:[id number] : 1940 83 From: Corazon Wright DO PCP: Dr. Kwabena Menjivar MD Status :ADM IN Location: [place] [address] Subjective Subjective Afebrile Heart rate continues to be slow at times even with the discontinuation of Robaxin. The heart rate over the past 48 hours has ranged from 51-72. The heart rate today is 72. Blood pressure lying down today is 102/50 with a pulse rate of 72. Blood pressure sitting with his legs dependent was 103/47 with a heart rate of 80. Blood pressure standing was 106/37 with a pulse rate of 75. Still with very poor oral fluid intake despite being admonished to increase his fluid intake to help manage the orthostatic hypotension. IV fluids were discontinued yesterday. Appetite remains poor. Had a large BM while sitting on the toilet today. He had to be coached by the occupational therapist to lean forward and bear down to have a bowel movement. He was unaware that he had a bowel movement. Required max assist x 2 for hygiene post BM and management of clothing. Weight today is 163 pounds and 3 ounces which is down from 170 pounds and 1 ounce on 04/28/2024. Denies burning pain in the legs today. Tolerating the Gabapentin. speech therapy ate lunch with him today and he fed himself half the meal and theother half she helped him with but, he ate everything and drank an Ensure. Tells me he slept well last night. Denies pain in the legs today. Also denies chest pain, cough, palpitations, shortness of breath. Has built up utensils to eat with. Objective Data Objective Data Vital Signs: Vital Signs Temp Pulse Resp BP Pulse Ox O2 Del Method 98.8 F 72 16 102/50 L 97 Room Air 05/05/24 05:17 05/05/24 09:00 05/05/24 05:17 05/05/24 09:00 05/05/24 05:17 05/05/24 05:17 Oxygen Delivery Method Room Air Weight: 163 lb 3.2 oz Body Mass Index (BMI) 24.7 Intake & Output: Intake and Output for Last 24 Hours 05/03/24 05/04/24 05/05/24 23:59 23:59 23:59 Intake Total 3993.75 / 3993.75 2452.92 / 2512.92 660 / 660 Output Total 4325 / 4325 2300 / 2300 1550 / 1550 Balance -331.25 / -331.25 152.92 / 212.92 -890 / -890 Lab / Micro Data 05/04/24 07:15 05/04/24 07:15 Micro: Microbiology 04/27/24 22:05 Urine Catheter - Catheter Urine Culture - Final Culture exhibits no growth. 04/29/24 22:20 Stool Stool Occult Blood (JERMAINE) - Final Physical Exam Const alert, oriented x3 and no apparent distress Neck Neck Narrative: He is in a rigid cervical collar. Resp normal respiratory effort, normal air movement and clear to auscultation bilaterally Effort and Inspection: able to speak in complete sentences; Negative for tachypneic Cardio regular rate, regular rhythm, no murmurs, no rub and no gallops Cardio Narrative: No ectopy GI normal to inspection, nondistended, normoactive bowel sounds, soft to palpation,non-tender and no bruits GI Narrative: No guarding with palpation. Positive ventral hernia. Extremity no calf tenderness Skin General Skin Exam: no breakdown Rashes: no rashes Psych Psych Narrative: Slept better last night but still complaining of decreased appetite and oral food intake has been very erratic. If there is no one in there with him he does not eat, doesn't even try. Does not appearanxious. 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: QUALIFIERS: Encounter type: subsequent encounter Qualified Code(s): S06.9X9D - Unspecified intracranial injury with loss of consciousness of unspecified duration, subsequent encounter (10) Left maxillary fracture: QUALIFIERS: Encounter type: subsequent encounter Fracture type: closed (11) Dysphagia: QUALIFIERS: Dysphagia type: pharyngeal phase Qualified Code(s): R13.13 - Dysphagia, pharyngeal phase (12) Bilateral arm weakness: (13) Postural dizziness with near syncope: (14) Severe dehydration: (15) Orthostatic hypotension: (16) Urine retention: (17) GERD with esophagitis: QUALIFIERS: Esophagitis bleeding: without hemorrhage Qualified Code(s): K21.00 - Gastro-esophageal reflux disease with esophagitis, without bleeding (18) History of IBS: (19) Anxiety and depression: PLAN: Plan 1. Continue therapy 2. Needs a lot of encouragement to try and do thing for himself. Hoping this will improve with Remeron but, suspect he has been like this most of his life. He is sleeping better. 3. Will have NA sit with him for meals and feed if necessary. 4. Suspect he will need to go to a facility [facility] from rehab. 5. Needs to follow up with psychiatry for meds and psychotherapy. Charges/Coding Visit Charges Inpatient E&M: 90486 [facility] Hosp L1 05/05/24 1320 Corazon Doan Signature (if applicable): CC: ~ Signed [facility]03-26-2025 Progress note Author Corazon Wright [facility] Note Date/Time May 03, 2024 1:2 7pm [facility] Medical Records Department [address] [place] [address] Progress Note 05/03/24 1227 MR#: [id number] Acct: [id number] Name: YAS ROSA Rep #:[id number] : 1940 83 From: Corazon Wright DO PCP: Dr. Kwabena Menjivar MD Status :ADM IN Location: [place] [address]1 Subjective Subjective Afebrile VSS -blood pressure over the past 24 hours has ranged from 103/52 to 170/80. Heart rate is ranged from 51-74. Robaxin was discontinued yesterday due to its potential of causing bradycardia and hypotension. He was taking 1000 mg every 6hours at presentation to rehab and it will take a few days to wash out of his system so I suspect we are still seeing some of the effects of the Robaxin. Blood pressure lying down today was 161/74 and the heart rate was 54. Standing up the blood pressure was 100/58 with a pulse rate of 60. Maintaining appropriate oxygen saturation on RA-95 to 97%. Oral intake - FOOD appetite and intake is highly variable. FLUIDS fluid balance was still negative yesterday at -840. Overnight he was -775. IV fluidswere increased yesterday. Not on a diuretic. Suspect postobstructive diuresis. Having regular bowel movements Discussed with nursing - no problems that need addressed Reviewed the THERAPY notes Medication list reviewed. Tells me he has no appetite. He thinks he slept well last night. He is c/o burning in his hands and legs today. This is new. Tells me the dizziness with standing is mildly better today. Denies chest pain, shortness of breath, cough,palpitations, nausea/vomiting/abdominal pain. Urine in the Quigley bag is clear with no sediment. Objective Data Objective Data Vital Signs: Vital Signs Temp Pulse Resp BP Pulse Ox O2 Del Method 98.4 F 54 L 16 161/74 H 97 Room Air 05/03/24 06:00 05/03/24 10:00 05/03/24 06:00 05/03/24 10:05/03/24 06:00 05/03/24 06:00 Oxygen Delivery Method Room Air Weight: 166 lb 3.657 oz Body Mass Index (BMI) 25.2 Intake & Output: Intake and Output for Last 24 Hours 05/01/24 05/02/24 05/03/24 23:59 23:59 23:59 Intake Total 1820 / 1820 3709.34 / 3709.34 1200 / 1200 Output Total 2650 / 2650 4550 / 5175 1974 Balance -830 / -830 -840.66 / -1465.66 -775 / -775 Lab / Micro Data 05/01/24 06:39 05/01/24 06:39 Micro: Microbiology 04/27/24 22:05 Urine Catheter - Catheter Urine Culture - Final Culture exhibits no growth. 04/29/24 22:20 Stool Stool Occult Blood (JERMAINE) - Final Physical Exam Const alert, oriented x3 and no apparent distress Neck Neck Narrative: He is in a rigid cervical collar. Resp normal respiratory effort, normal air movement and clear to auscultation bilaterally Effort and Inspection: able to speak in complete sentences; Negative for tachypneic Cardio regular rate, regular rhythm, no murmurs, no rub and no gallops Cardio Narrative: No ectopy GI normal to inspection, nondistended, normoactive bowel sounds, soft to palpation,non-tender and no bruits GI Narrative: No guarding with palpation. Positive ventral hernia. Extremity no calf tenderness Skin General Skin Exam: no breakdown Rashes: no rashes Psych Psych Narrative: Slept better last night but still complaining of decreased appetite and oral food intake has been very erratic. Does not appear anxious. 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: QUALIFIERS: Encounter type: subsequent encounter Qualified Code(s): S06.9X9D - Unspecified intracranial injury with loss of consciousness of unspecified duration, subsequent encounter (10) Left maxillary fracture: QUALIFIERS: Encounter type: subsequent encounter Fracture type: closed (11) Dysphagia: QUALIFIERS: Dysphagia type: pharyngeal phase Qualified Code(s): R13.13 - Dysphagia, pharyngeal phase (12) Bilateral arm weakness: (13) Postural dizziness with near syncope: (14) Severe dehydration: (15) Orthostatic hypotension: (16) Urine retention: (17) GERD with esophagitis: QUALIFIERS: Esophagitis bleeding: without hemorrhage Qualified Code(s): K21.00 - Gastro-esophageal reflux disease with esophagitis, without bleeding (18) History of IBS: (19) Anxiety and depression: PLAN: Plan 1. Continue therapy 2. Add Gabapentin 100 mg BID to the current drug regimen. 3. Increase the Remeron to 15 mg Q HS 4. Give a 1 liter NS bolus now and then increase the IV rate to 125 cc/hr. 5. BMP and HH in the AM 6. I am hoping the orthostasis improves once the Robaxin has washed out. 7. Recheck orthostatics in the AM. Charges/Coding Visit Charges Inpatient E&M: 39426 Subs Hosp L1 05/03/24 1327 <Electronically signed by Corazon Wright DO> Corazon Wright DO Cosigner Signature (if applicable): CC: ~ Signed [facility] Work Phone: [phone] 726-587803-26-2025 Progress note [facility] Medical Records Department [address] [place] [address] Progress Note 05/03/24 1227 MR#: [id number] Acct: [id number] Name: YAS ROSA Rep #:[id number] : 1940 83 From: Corazon Wright DO PCP: Dr. Kwabena Menjivar MD Status :ADM IN Location: [place] [address] Subjective Subjective Afebrile VSS -blood pressure over the past 24 hours has ranged from 103/52 to 170/80. Heart rate is ranged from 51-74. Robaxin was discontinued yesterday due to its potential of causing bradycardia and hypotension. He was taking 1000 mg every 6hours at presentation to rehab and it will take a few days to wash out of his system so I suspect we are still seeing some of the effects of the Robaxin. Blood pressure lying down today was 161/74 and the heart rate was 54. Standing up the blood pressure was 100/58 with a pulse rate of 60. Maintaining appropriate oxygen saturation on RA-95 to 97%. Oral intake - FOOD appetite and intake is highly variable. FLUIDS fluid balance was still negative yesterday at -840. Overnight he was -775. IV fluidswere increased yesterday. Not on a diuretic. Suspect postobstructive diuresis. Having regular bowel movements Discussed with nursing - no problems that need addressed Reviewed the THERAPY notes Medication list reviewed. Tells me he has no appetite. He thinks he slept well last night. He is c/o burning in his hands andlegs today. This is new. Tells me the dizziness with standing is mildly better today. Denies chest pain, shortness of breath, cough,palpitations, nausea/vomiting/abdominal pain. Urine in the Quigley bag is clear with no sediment. Objective Data Objective Data Vital Signs: Vital Signs Temp Pulse Resp BP Pulse Ox O2 Del Method 98.4 F 54 L 16 161/74 H 97 Room Air 05/03/24 06:00 05/03/24 10:00 05/03/24 06:00 05/03/24 10:00 05/03/24 06:00 05/03/24 06:00 Oxygen Delivery Method Room Air Weight: 166 lb 3.657 oz Body Mass Index (BMI) 25.2 Intake & Output: Intake and Output for Last 24 Hours 05/01/24 05/02/24 05/03/24 23:59 23:59 23:59 Intake Total 1820 / 1820 3709.34 / 3709.34 1200 / 1200 Output Total 2650 / 2650 4550 / 5175 1974 Balance -830 / -830 -840.66 / -1465.66 -775 / -775 Lab / Micro Data 05/01/24 06:39 05/01/24 06:39 Micro: Microbiology 04/27/24 22:05 Urine Catheter - Catheter Urine Culture - Final Culture exhibits no growth. 04/29/24 22:20 Stool Stool Occult Blood (JERMAINE) - Final Physical Exam Const alert, oriented x3 and no apparent distress Neck Neck Narrative: He is in a rigid cervical collar. Resp normal respiratory effort, normal air movement and clear to auscultation bilaterally Effort and Inspection: able to speak in complete sentences; Negative for tachypneic Cardio regular rate, regular rhythm, no murmurs, no rub and no gallops Cardio Narrative: No ectopy GI normal to inspection, nondistended, normoactive bowel sounds, soft to palpation,non-tender and no bruits GI Narrative: No guarding with palpation. Positive ventral hernia. Extremity no calf tenderness Skin General Skin Exam: no breakdown Rashes: no rashes Psych Psych Narrative: Slept better last night but still complaining of decreased appetite and oral food intake has been very erratic. Does not appear anxious. 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: QUALIFIERS: Encounter type: subsequent encounter Qualified Code(s): S06.9X9D - Unspecified intracranial injury with loss of consciousness of unspecified duration, subsequent encounter (10) Left maxillary fracture: QUALIFIERS: Encounter type: subsequent encounter Fracture type: closed (11) Dysphagia: QUALIFIERS: Dysphagia type: pharyngeal phase Qualified Code(s): R13.13 - Dysphagia, pharyngeal phase (12) Bilateral arm weakness: (13) Postural dizziness with near syncope: (14) Severe dehydration: (15) Orthostatic hypotension: (16) Urine retention: (17) GERD with esophagitis: QUALIFIERS: Esophagitis bleeding: without hemorrhage Qualified Code(s): K21.00 - Gastro-esophageal reflux disease with esophagitis, without bleeding (18) History of IBS: (19) Anxiety and depression: PLAN: Plan 1. Continue therapy 2. Add Gabapentin 100 mg BID to the current drug regimen. 3. Increase the Remeron to 15 mg Q HS 4. Give a 1 liter NS bolus now and then increase the IV rate to 125 cc/hr. 5. BMP and HH in the AM 6. I am hoping the orthostasis improves once the Robaxin has washed out. 7. Recheck orthostatics in the AM. Charges/Coding Visit Charges Inpatient E&M: 00679 Subs Hosp L1 05/03/24 1327 Corazon Wright DO Cosigner Signature (if applicable): CC: ~ Signed [facility]03-25-2025 Progress note Author Corazon Wright [facility] Note Date/Time May 02, 2024 4:5 7pm [facility] Medical Records Department [address] [place] [address] Progress Note 03/25/25 1236 MR#: [id number] Acct: [id number] Name: YAS ROSA Rep #:[id number] : 1940 83 From: Corazon WuEvette Kyle PCP: Dr. Kwabena Menjivar MD Status :ADM IN Location: [place] [address] Subjective Subjective Afebrile VSS -blood pressure over the past 24 hours has ranged from 82/46 to 172/76. Blood pressure seated today was 144/79 with a heart rate of 57. Standing with therapy the blood pressure was 82/46 with a heart rate of 62 and he was very lightheaded/near syncopal. Maintaining appropriate oxygen saturation on RA Oral intake - FOOD eating 50 to 74% of some of his meals and 75 to 100% of others. Occasionally refuses a meal. Nursing has to feed him. FLUIDS oral fluid intake is still poor. He took only 820 cc yesterday. He had 1000 cc of IV fluid for a fluid balance of -830. Overnight his intake was 2289 and the output was 1800 cc for a fluid balance of positive is 489. Urine output seems to be slowing down. Last bowel movement was yesterday. Discussed with nursing - no problems that need addressed Reviewed the THERAPY notes-he was able to ambulate 26 feet today despite orthostasis. [place] [facility] [place] [facility] Medication list reviewed. Has not taken any Oxycodone since it was ordered on the . I reviewed the fees done yesterday. Marked edema in the posterior pharynx with cobblestoning and marked edema of the larynx. Likely has been refluxing and has chronic irritation. Diet was changed to minced and moist with thin liquids and double swallows. There is concern for esophageal dysmotility. MBS at some point during this admission. Protonix increased to 40 mg BID. Denies cephalgia, chest pain, shortness of breath, cough, palpitations, heartburn, nausea/vomiting/abdominal pain and calf pain. Objective Data Objective Data Vital Signs: Vital Signs Temp Pulse Resp BP Pulse Ox O2 Del Method 99.0 F 62 17 82/46 L 95 Room Air 05/02/24 06:00 05/02/24 09:55 05/02/24 06:00 05/02/24 09:55 05/02/24 06:00 05/02/24 06:00 Oxygen Delivery Method Room Air Weight: 170 lb 1.598 oz Body Mass Index (BMI) 25.7 Intake & Output: Intake and Output for Last 24 Hours 04/30/24 05/01/24 05/02/24 23:59 23:59 23:59 Intake Total 2521.33 / 2521.33 1820 / 1820 2049.34 / 2049.34 Output Total 4625 / 4625 2650 / 2650 1800 / 1800 Balance -2103.67 / -2103.67 -830 / -830 249.34 / 249.34 Lab / Micro Data 05/01/24 06:39 05/01/24 06:39 Micro: Microbiology 04/27/24 22:05 Urine Catheter - Catheter Urine Culture - Final Culture exhibits no growth. 04/29/24 22:20 Stool Stool Occult Blood (JERMAINE) - Final Physical Exam Const alert, oriented x3 and no apparent distress Neck Neck Narrative: He is in a rigid cervical collar. Resp normal respiratory effort, normal air movement and clear to auscultation bilaterally Effort and Inspection: able to speak in complete sentences; Negative for tachypneic Cardio regular rate, regular rhythm, no murmurs, no rub and no gallops Cardio Narrative: No ectopy GI normal to inspection, nondistended, normoactive bowel sounds, soft to palpation,non-tender and no bruits GI Narrative: No guarding with palpation. Positive ventral hernia. Extremity no calf tenderness and no pedal edema Skin Skin Narrative: Left anterior cervical incision secondary to recent discectomy and fusion C3-C6. General Skin Exam: no breakdown Rashes: no rashes Psych Psych Narrative: so far he is tolerating the Sertraline. Poor memory.......can not remember fromone day to the next what I tell him. May be related to untreated depression. 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: QUALIFIERS: Encounter type: subsequent encounter Qualified Code(s): S06.9X9D - Unspecified intracranial injury with loss of consciousness of unspecified duration, subsequent encounter (10) Left maxillary fracture: QUALIFIERS: Encounter type: subsequent encounter Fracture type: closed (11) Dysphagia: QUALIFIERS: Dysphagia type: pharyngeal phase Qualified Code(s): R13.13 - Dysphagia, pharyngeal phase (12) Bilateral arm weakness: (13) Postural dizziness with near syncope: (14) Severe dehydration: (15) Orthostatic hypotension: (16) Urine retention: (17) GERD with esophagitis: QUALIFIERS: Esophagitis bleeding: without hemorrhage Qualified Code(s): K21.00 - Gastro-esophageal reflux disease with esophagitis, without bleeding (18) History of IBS: (19) Anxiety and depression: PLAN: Plan 1. Continue therapy 2. Continue IV fluids 3. Hold Robaxin because it can cause bradycardia and hypotension 4. Increase pantoprazole to 40 mg twice daily 5. Plan MBS to assess for esophageal dysmotility -will discuss with speech therapy 6. Recheck orthostatics in the a.m. x 3 days Charges/Coding Visit Charges Inpatient E&M: 76967 Subs Hosp L1 05/02/24 1657 <Electronically signed by Corazon Wright DO> Corazon Giraldoign Signature (if applicable): CC: ~ Signed [facility] Work Phone: [phone] Progress note [facility] Medical Records Department [address] [place] [address] Progress Note 05/02/24 1236 MR#: [id number] Acct: [id number] Name: YAS ROSA Rep #:[id number] : 1940 83 From: Corazon Wright DO PCP: Dr. Kwabena Menjivar MD Status :ADM IN Location: [place] [address] Subjective Subjective Afebrile VSS -blood pressure over the past 24 hours has ranged from 82/46 to 172/76. Blood pressure seated today was 144/79 with a heart rate of 57. Standing with therapy the blood pressure was 82/46 with a heart rate of 62 and he was very lightheaded/near syncopal. Maintaining appropriate oxygen saturation on RA Oral intake - FOOD eating 50 to 74% of some of his meals and 75 to 100% of others. Occasionally refuses a meal. Nursing has to feed him. FLUIDS oral fluid intake is still poor. He took only 820 cc yesterday. He had 1000 cc of IV fluid for a fluid balance of -830. Overnight his intake was 2289 and the output was 1800 cc for a fluid balance of positive is 489. Urine output seems to be slowing down. Last bowel movement was yesterday. Discussed with nursing - no problems that need addressed Reviewed the THERAPY notes-he was able to ambulate 26 feet today despite orthostasis. [place] [facility] [place] [facility] Medication list reviewed. Has not taken any Oxycodone since it was ordered on the . I reviewed the fees done yesterday. Marked edema in the posterior pharynx with cobblestoning and marked edema of the larynx. Likely has been refluxing and has chronic irritation. Diet was changed to minced and moist with thin liquids and double swallows. There is concern for esophageal dysmotility.MBS at some point during this admission. Protonix increased to 40 mg BID. Denies cephalgia, chest pain, shortness of breath, cough, palpitations, heartburn, nausea/vomiting/abdominal pain and calf pain. Objective Data Objective Data Vital Signs: Vital Signs Temp Pulse Resp BP Pulse Ox O2 Del Method 99.0 F 62 17 82/46 L 95 Room Air 05/02/24 06:00 05/02/24 09:55 05/02/24 06:00 05/02/24 09:55 05/02/24 06:00 05/02/24 06:00 Oxygen Delivery Method Room Air Weight: 170 lb 1.598 oz Body Mass Index (BMI) 25.7 Intake & Output: Intake and Output for Last 24 Hours 04/30/24 05/01/24 05/02/24 23:59 23:59 23:59 Intake Total 2521.33 / 2521.33 1820 / 1820 2049.34 / 2049.34 Output Total 4625 / 4625 2650 / 2650 1800 / 1800 Balance -2103.67 / -2103.67 -830 / -830 249.34 / 249.34 Lab / Micro Data 05/01/24 06:39 05/01/24 06:39 Micro: Microbiology 04/27/24 22:05 Urine Catheter - Catheter Urine Culture - Final Culture exhibits no growth. 04/29/24 22:20 Stool Stool Occult Blood (JERMAINE) - Final Physical Exam Const alert, oriented x3 and no apparent distress Neck Neck Narrative: He is in a rigid cervical collar. Resp normal respiratory effort, normal air movement and clear to auscultation bilaterally Effort and Inspection: able to speak in complete sentences; Negative for tachypneic Cardio regular rate, regular rhythm, no murmurs, no rub and no gallops Cardio Narrative: No ectopy GI normal to inspection, nondistended, normoactive bowel sounds, soft to palpation,non-tender and no bruits GI Narrative: No guarding with palpation. Positive ventral hernia. Extremity no calf tenderness and no pedal edema Skin Skin Narrative: Left anterior cervical incision secondary to recent discectomy and fusion C3-C6. General Skin Exam: no breakdown Rashes: no rashes Psych Psych Narrative: so far he is tolerating the Sertraline. Poor memory.......can not remember fromone day to the next what I tell him. May be related to untreated depression. 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: QUALIFIERS: Encounter type: subsequent encounter Qualified Code(s): S06.9X9D - Unspecified intracranial injury with loss of consciousness of unspecified duration, subsequent encounter (10) Left maxillary fracture: QUALIFIERS: Encounter type: subsequent encounter Fracture type: closed (11) Dysphagia: QUALIFIERS: Dysphagia type: pharyngeal phase Qualified Code(s): R13.13 - Dysphagia, pharyngeal phase (12) Bilateral arm weakness: (13) Postural dizziness with near syncope: (14) Severe dehydration: (15) Orthostatic hypotension: (16) Urine retention: (17) GERD with esophagitis: QUALIFIERS: Esophagitis bleeding: without hemorrhage Qualified Code(s): K21.00 - Gastro-esophageal reflux disease with esophagitis, without bleeding (18) History of IBS: (19) Anxiety and depression: PLAN: Plan 1. Continue therapy 2. Continue IV fluids 3. Hold Robaxin because it can cause bradycardia and hypotension 4. Increase pantoprazole to 40 mg twice daily 5. Plan MBS to assess for esophageal dysmotility -will discuss with speech therapy 6. Recheck orthostatics in the a.m. x 3 days Charges/Coding Visit Charges Inpatient E&M: 35513 Subs Hosp L1 05/02/24 1657 Corazon Wright DO Cosigner Signature (if applicable): CC: ~ Signed [facility]03-25-2025 Progress note Author Corazon Wright [facility] Note Date/Time May 02, 2024 2:1 3pm [facility] Medical Records Department [address] [place] [address] Progress Note 05/01/24 1234 MR#: [id number] Acct: [id number] Name: YAS ROSA Rep #:[id number] : 1940 83 From: Corazon Wright DO PCP: Dr. Kwabena Menjivar MD Status :ADM IN Location: [place] [address] Subjective Subjective Milan was seen on team rounds today. His was present in the room. All theirquestions were answered to their satisfaction. Afebrile VSS -blood pressure over the past 48 hours has ranged from 97/51 to 185/93. Theheart rate has ranged from 53-65. No orthostatics done this AM....will repeat in the AM. Maintaining appropriate oxygen saturation on RA-95 to 98%. He ate 50 to 74% of his breakfast and lunch today. Oral intake - FOOD has improved since arrival on rehab on 04/27/2024. FLUIDS oral fluid intake yesterday was 580 cc and he had 1941 cc intravenously. Today has had 580s so far. Unfortunately he had 4625 cc out yesterday for a fluid balance of - 2103. Not on a diuretic. I suspect the diuresis may be related to postobstructive diuresis. We have had to hold Flomax because of the severe orthostatic hypotension. He was able to stand with therapy today and was not presyncopal. Discussed with nursing - no problems that need addressed Reviewed the THERAPY notes-he ambulated 7 feet today with mod assist of 2 or 3 staff. Medication list reviewed. All lab from today was personally reviewed. The white blood cell count is normal at 8.4. Hemoglobin is stable at 11.9. Platelets are 149,000 today. Sodium and potassium are within normal limits. The BUN is down to 16 from 27 on04/29/2023. Creatinine is 0.74 which is within his baseline. He is to have a FEES today to assess swallowing. Hemoccult stool is negative. Had an episode of chest tightness yesterday. Blood pressure was elevated at thetime and he was anxious. EKG was totally normal. Poor memory. Even after telling him that the Prozac did not cause diarrhea and reinforcing with him thathe has been diagnosed by GI with IBS he can not remember and is still attributing diarrhea to Prozac. He also does not remember that he has been diagnosed with reflux esophagitis in the past after an EGD. He self discontinued a PPI. Is not able to recall why his left shoulder is dislocated even though this was explained by the physical therapist and myself. LUE remains flaccid. Awareness of his disability is poor. He seems motivated to get better. Long hx of non-compliance in past. When I pointed out that the disability has to do with not taking care of himself, poor follow up with physician, non- compliance with medications and ignoring the fact that he has completely lost the ability to move the LUE for > 1 year he got upset with me. He also has not seen anyone for the urine retention and sx of outlflow obstruction he has been having. Objective Data Objective Data Vital Signs: Vital Signs Temp Pulse Resp BP Pulse Ox O2 Del Method 98.7 F 53 L 18 129/75 H 96 Room Air 05/01/24 04:34 05/01/24 04:34 05/01/24 04:34 05/01/24 04:34 05/01/24 04:34 05/01/24 04:34 Oxygen Delivery Method Room Air Weight: 170 lb 1.598 oz Body Mass Index (BMI) 25.7 Intake & Output: Intake and Output for Last 24 Hours 04/29/24 04/30/24 05/01/24 23:59 23:59 23:59 Intake Total 2999.67 / 2999.67 2521.33 / 2521.33 1340 / 1340 Output Total 3100 / 3100 4625 / 4625 1325 / 1325 Balance -100.33 / -100.33 -2103.67 / -2103.67 Lab / Micro Data 05/01/24 06:39 05/01/24 06:39 Labs: Laboratory Results - last 24 hr 05/01/24 06:39: WBC 8.4, RBC 3.94 L, Hgb 11.9 L, Hct 35.2 L, MCV 89.3, MCH 30.2,MCHC 33.8, RDW Std Deviation 41.9, RDW Coeff of Delia 12.8, Plt Count 149 L, MPV 8.6, Sodium 141, Potassium 4.5, Chloride 109 H, Carbon Dioxide 23.7, Anion Gap 8, BUN 16, Creatinine 0.74, Estim Creat Clear Calc 68.88, Est GFR (MDRD) Non-Af 91, BUN/Creatinine Ratio 21.7 H, Glucose 99, Calcium 8.1, Phosphorus 3.3 Micro: Microbiology 04/27/24 22:05 Urine Catheter - Catheter Urine Culture - Final Culture exhibits no growth. 04/29/24 22:20 Stool Stool Occult Blood (JERMAINE) - Final Physical Exam Const alert, oriented x3 and no apparent distress HEENT HEENT Narrative: Periorbital ecchymosis on the Left side and also has ecchymosis of the left faceat the jawline. Conjunctiva is clear today. Mucous membranes are very dry. Nothrush. The tongue protrudes on the midline. Neck Neck Narrative: He is in a rigid cervical collar. Resp normal respiratory effort, normal air movement and clear to auscultation bilaterally Effort and Inspection: able to speak in complete sentences; Negative for tachypneic Cardio regular rate, regular rhythm, no murmurs, no rub and no gallops Cardio Narrative: No ectopy GI normal to inspection, nondistended, normoactive bowel sounds, soft to palpation,non-tender and no bruits GI Narrative: No guarding with palpation. Positive ventral hernia. Extremity no calf tenderness and no pedal edema Skin Skin Narrative: Left anterior cervical incision secondary to recent discectomy and fusion C3-C6. General Skin Exam: no breakdown Rashes: no rashes Psych mental status grossly normal and thought process normal Psych Narrative: so far he is tolerating the Sertraline. Poor memory.......can not remember fromone day to the next what I tell him. May be related to untreated depression. Activity / Motor Behavior: appropriate eye contact and other Has some psychomotor slowing.......due to depression? Tells me that this has become apparent to him since the fall recently.....has had several falls over the past 6 months. ; Negative for psychomotor agitation Speech: normal speech Mood & Affect: depressed and flat affect Assessment & Plan Assessment/Plan (1) Debility: (2) Cervical stenosis of spinal canal: (3) Foraminal stenosis of cervical region: (4) Cervical cord myelomalacia: (5) Cervical myelopathy: (6) Status post cervical spinal fusion: PLAN: Anterior cervical discectomy/decompression and fusion by Dr. Madi Diego on 04/26/2024. 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 Also with paresthesias in both UE's (12) Postural dizziness with near syncope: (13) Severe dehydration: (14) Orthostatic hypotension: (15) Urine retention: (16) GERD with esophagitis: QUALIFIERS: Esophagitis bleeding: without hemorrhage Qualified Code(s): K21.00 - Gastro-esophageal reflux disease with esophagitis, without bleeding (17) History of IBS: (18) Anxiety and depression: PLAN: Plan 1. Continue therapy 2. Will have a FEES today. 3. Continue Remeron at at bedtime. Continue Remeron at at bedtime 4. urine OP exceeds intake, even with the IV fluids. 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 will continue IVF's. Charges/Coding Visit Charges Inpatient E&M: 19838 Subs Hosp L2 05/02/24 6705 <Electronically signed by Corazon Wright DO> Corazon Wright DO Cosign Signature (if applicable): CC: ~ Signed [facility] Work Phone: [phone] Progress note [facility] Medical Records Department [address] [place] [address] Progress Note 05/01/24 1234 MR#: [id number] Acct: [id number] Name: YAS ROSA Rep #:[id number] : 1940 83 From: Corazon Wright DO PCP: Dr. Kwabena Menjivar MD Status :ADM IN Location: [place] [address] Subjective Subjective Milan was seen on team rounds today. His was present in the room. All theirquestions were answered to their satisfaction. Afebrile VSS -blood pressure over the past 48 hours has ranged from 97/51 to 185/93. Theheart rate has ranged from 53-65. No orthostatics done this AM....will repeat in the AM. Maintaining appropriate oxygen saturation on RA-95 to 98%. He ate 50 to 74% of his breakfast and lunch today. Oral intake - FOOD has improved since arrival on rehab on 04/27/2024. FLUIDS oral fluid intake yesterday was 580 cc and he had 1941 cc intravenously. Today has had 580s so far. Unfortunately he had 4625 cc out yesterday for a fluid balance of -2103. Not on a diuretic. I suspect the diuresis may be related to postobstructive diuresis. We have had to hold Flomax because of the severe orthostatic hypotension. He was able to stand with therapy today and was not presyncopal. Discussed with nursing - no problems that need addressed Reviewed the THERAPY notes-he ambulated 7 feet today with mod assist of 2 or 3 staff. Medication list reviewed. All lab from today was personally reviewed. The white blood cell count is normal at 8.4. Hemoglobinis stable at 11.9. Platelets are 149,000 today. Sodium and potassium are within normal limits. The BUN is down to 16 from 27 on04/29/2023. Creatinine is 0.74 which is within his baseline. He is to have a FEES today to assess swallowing. Hemoccult stool is negative. Had an episode of chest tightness yesterday. Blood pressure was elevated at thetime and he was anxious. EKG was totally normal. Poor memory. Even after telling him that the Prozac did not cause diarrhea and reinforcing with him thathe has been diagnosed by GI with IBS he can not remember and is still attributing diarrhea to Prozac. He also does not remember that he has been diagnosed with reflux esophagitis in the past after an EGD. He self discontinued a PPI. Is not able to recall why his leftshoulder is dislocated even though this was explained by the physical therapist and myself. LUE remains flaccid. Awareness of his disability is poor. He seems motivated to get better. Long hx of non-compliance in past. When I pointed out that the disability has to do with not taking care of himself, poor follow up with physician, non-compliance with medications and ignoring the fact that he has completely lost the ability to move the LUE for > 1 year he got upset with me. He also has not seen anyone for the urine retention and sx of outlflow obstruction he has been having. Objective Data Objective Data Vital Signs: Vital Signs Temp Pulse Resp BP Pulse Ox O2 Del Method 98.7 F 53 L 18 129/75 H 96 Room Air 05/01/24 04:34 05/01/24 04:34 05/01/24 04:34 05/01/24 04:34 05/01/24 04:34 05/01/24 04:34 Oxygen Delivery Method Room Air Weight: 170 lb 1.598 oz Body Mass Index (BMI) 25.7 Intake & Output: Intake and Output for Last 24 Hours 04/29/24 04/30/24 05/01/24 23:59 23:59 23:59 Intake Total 2999.67 / 2999.67 2521.33 / 2521.33 1340 / 1340 Output Total 3100 / 3100 4625 / 4625 1325 / 1325 Balance -100.33 / -100.33 -2103.67 / -2103.67 Lab / Micro Data 05/01/24 06:39 05/01/24 06:39 Labs: Laboratory Results - last 24 hr 05/01/24 06:39: WBC 8.4, RBC 3.94 L, Hgb 11.9 L, Hct 35.2 L, MCV 89.3, MCH 30.2,MCHC 33.8, RDW Std Deviation 41.9, RDW Coeff of Delia 12.8, Plt Count 149 L, MPV 8.6, Sodium 141, Potassium 4.5, [id number] H, Carbon Dioxide 23.7, Anion Gap 8, BUN 16, Creatinine 0.74, Estim Creat Clear Calc 68.88, EstGFR (MDRD) Non- Af 91, BUN/Creatinine Ratio 21.7 H, Glucose 99, Calcium 8.1, Phosphorus 3.3 Micro: Microbiology 04/27/24 22:05 Urine Catheter - Catheter Urine Culture - Final Culture exhibits no growth. 04/29/24 22:20 Stool Stool Occult Blood (JERMAINE) - Final Physical Exam Const alert, oriented x3 and no apparent distress HEENT HEENT Narrative: Periorbital ecchymosis on the Left side and also has ecchymosis of the left faceat the jawline. Conjunctiva is clear today. Mucous membranes are very dry. Nothrush. The tongue protrudes on the midline. Neck Neck Narrative: He is in a rigid cervical collar. Resp normal respiratory effort, normal air movement and clear to auscultation bilaterally Effort and Inspection: able to speak in complete sentences; Negative for tachypneic Cardio regular rate, regular rhythm, no murmurs, no rub and no gallops Cardio Narrative: No ectopy GI normal to inspection, nondistended, normoactive bowel sounds, soft to palpation,non-tender and no bruits GI Narrative: No guarding with palpation. Positive ventral hernia. Extremity no calf tenderness and no pedal edema Skin Skin Narrative: Left anterior cervical incision secondary to recent discectomy and fusion C3-C6. General Skin Exam: no breakdown Rashes: no rashes Psych mental status grossly normal and thought process normal Psych Narrative: so far he is tolerating the Sertraline. Poor memory.......can not remember fromone day to the next what I tell him. May be related to untreated depression. Activity / Motor Behavior: appropriate eye contact and other Has some psychomotor slowing.......dueto depression? Tells me that this has become apparent to him since the fall recently.....has had several falls over the past 6 months. ; Negative for psychomotor agitation Speech: normal speech Mood & Affect: depressed and flat affect Assessment & Plan Assessment/Plan (1) Debility: (2) Cervical stenosis of spinal canal: (3) Foraminal stenosis of cervical region: (4) Cervical cord myelomalacia: (5) Cervical myelopathy: (6) Status post cervical spinal fusion: PLAN: Anterior cervical discectomy/decompression and fusion by Dr. Madi Diego on 04/26/2024. 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 Also with paresthesias in both UE's (12) Postural dizziness with near syncope: (13) Severe dehydration: (14) Orthostatic hypotension: (15) Urine retention: (16) GERD with esophagitis: QUALIFIERS: Esophagitis bleeding: without hemorrhage Qualified Code(s): K21.00 - Gastro-esophageal reflux disease with esophagitis, without bleeding (17) History of IBS: (18) Anxiety and depression: PLAN: Plan 1. Continue therapy 2. Will have a FEES today. 3. Continue Remeron at at bedtime. Continue Remeron at at bedtime 4. urine OP exceeds intake, even with the IV fluids. 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 will continue IVF's. Charges/Coding Visit Charges Inpatient E&M: 21372 Subs Hosp L2 05/02/24 1413 Corazon Wright DO Cosigner Signature (if applicable): CC: ~ Signed [facility]03-21-2025 History and physical note Author Corazon [facility] [place] [facility] Note Date/Time April 28, 2024 3:3 5pm [facility] Medical Records Department [address] [place] [address] Post Admission Physician Hawaal 04/28/24 1241 MR#: [id number] Acct: [id number] Name: YAS ROSA Rep #:[id number] : 1940 83 From: Corazon Wright DO PCP: Dr. Kwabena Menjivar MD Status :ADM IN Location: [place] [address] Admission Information Primary Diagnosis:: DEBILITY DUE TO CERVICAL STENOSIS WITH MYELOPATHY Status Changes from Prescreening?: No changes Identified Actual Problem List:: Falls, Skin Intergrity, Cognitve Impr/Memory Loss, Depression, Bladder Incontinence, Bowel, Constipation, Mobility Impaired, Self Care Deficit, Know.Dfct/Disease Process, Know.Dfct of Medicaitons, BP, Hypotension, Fluid Change-Dehydration and Alteration-Leisure Activ. Potential Problem List:: DVT, Bleeding, Infection, UTI, Aspiration, Falls, Skin Integrity and Depression Risk of Complications DVT: YESSICA Hose and Sequential Compression Device Bleeding: Monitor Lab Values, Nursing to Teach Precautions for anti-coagulation therapy., Wound, if applicable, to be assessed every shift. and Stroke patients assessed for lethargy or change in status. Infection: Clinical Staff to Monitor for S/S of infection: and S/S of infection include fever, redness, warmth, etc. Urinary Tract Infection: Monitor for frequency, burning, discomfort, or incontinence. and Nursing will obtain urine sample for urinalysis and C&S when ordered. Aspiration: Clinical staff will monitor for coughing, drooling, congestion., Speech will evaluate swallowing and dsyphasia. and Nursing will monitor patient swallowing during meals. Falls: Patient will be evaluated for Fall Precautions and Patient will be placedon Fall Precautions as indicated per protocol. Skin Breakdown: Nursing will assess skin daily using assessment tool. and Nursing will place on Skin Breakdown Precautions as indicated. Pain: Clinical staff will assess patient's pain level per protocol., Medicationswill be given, if needed, and the pain level reassessed. and Other methods: Massage, distraction, decrease stimulus, etc. used PRN. Plan of Care Patient requires physician specializing in physical medicine and rehab oversightto provide close medical supervision of rehab issues including: Pain Management,Sleep Problems, Bowel and Bladder, Medical and co-morbidity Management, DVT prophylaxis, Rehabilitation Leadership and Coordination of treatment team Patient needs Physical Therapy: For a minimum of 1 hour and At least 5 out of 7 days Patient needs Physical Therapy to improve:: Mobility, Strengthening, Transfers, Stretching, ROM, Endurance, Stairs, Gait and Balance Patient needs Occupational Therapy: For a minimum of 1 hour and At least 5 out of 7 days Patient needs Occupational Therapy to improve ADL's incl.: Eating, Grooming, Bathing, Dressing, Toileting, Toilet transfers, Community Reintegration, Higher functioning activities, Household tasks, Adaptive Equipment, Splinting and Otheractivities as determined Patient requires speech therapy: For a minimum of 1 hour and At least 5 out of 7days Patient requires speech therapy for: Swallowing, Cognition, Language Skills and Compensatory Strategies Patient requires 24/7 Rehabilitation Nursing for: Pain Issues, Identifying and preventing risk factors, Monitoring and reporting current medical conditions, Assisting with ambulation, transfer, and all ADL's, Teaching patients about disease process and medications, Family teaching, Providing safe environment, Bowel and Bladder Issues, Skin integrity and Medication Management Patient needs Morning News Producer/ Case Management for: Discharge Planning, Arranging Home Equipment or Services and Family Interventions Patient needs Dietary and Nutrition Services for: Adequate Nutrition, Nutritional Supplements and Nutritional Education Goals Goals Patient will remain: free from falls Patient will perform eating at: - (min assist to MOD I) Patient will perform bed mobility at: MOD I level of assist. Patient will complete transfers from bed to chair at: - (Contact-guard assist) Patient will ambulate: - (165 feet with least restrictive device on various surfaces) Patient will complete upper body dressing at: - (Min assist) Patient will complete lower body dressing at: - (Min assist with adaptive equipment as needed) Patient will complete toilet transfer at: - (Min assist) Patient will complete toileting at: - (Min assist) Patient will perform bathing at: - (Min assist for upper body bathing and lower body bathing at min assist with adaptive equipment as needed.) Patient will perform Tub/Shower transfer at: - (Min assist with DME as needed) Patient will complete grooming at: - (Minimal assistance while seated at the sink) Patient will achieve: - (12 steps with 1 handrail to allow access to his 's basement at standby assist. ) Patient will have pain level of: of 3 or less Patient's skin will: remain intact Patient will receive: adequate nutrition. Discharge Planning Pt Prognosis for Sig. Practical Improv. w/in Reasonable Time: Good Estimated Length of stay (days): 28 Anticipated D/C Destination: TBD Was Preadmission Assessment Accurate?: Yes 04/28/24 2550 <Electronically signed by Corazon Wright DO> Cosigner Signature (if applicable): CC: ~ Signed [facility] Work Phone: [phone]) [phone] History and physical note Author Corazon Wright [facility] Note Date/Time April 28, 2024 3:2 4pm [facility] Medical Records Department [address] [place] [address] History & Physical Exam 04/28/24 1015 MR#: [id number] Acct: [id number] Name: YAS ROSA Rep #:[id number] : 1940 83 From: Corazon Wright DO PCP: Dr. Kwabena Menjivar MD Status :ADM IN Location: [id number] HPI - General General Date of Admission: 04/27/24 Date of Service: 04/28/24 Chief Complaint: Debility due to cervical canal stenosis with myelopathy and neuropathy. HPI Narrative YAS ROSA, is a 83 YO M with a past medical history of irritable bowel syndrome with alternating diarrhea and constipation, colonic angioectasias, GERDwith reflux esophagitis, anxiety/depression, remote tobacco dependence (quit in 1968), alcohol abuse , ventral hernia, presbycusis and progressive weakness, numbness and loss of function of the LUE over the past 2 years. Also has had numbness and incoordination with the R hand over the past several months. He lives alone and has had several falls over the past 6 months. He complains of Lightheadedness (when he is up and moving) and near syncope over at least the past 6 months. Lightheadedness improves when he is seated and not moving. He denies any vertigo. He presented to the ED at [facility] on 04/19/24 after having a fall in the BR at home. When EMS arrived he was lying beside the couch and wasalert oriented x 3. He told EMS that he became lightheaded and sat down on the edge of the tub. He can not recall what happened after he sat down on the edge of the tub. At presentation to the ED he had weakness of the L arm, an occipitalscalp hematoma and bruising/hematoma of the left face. He denied TORRES but, he complained of neck pain. He had a fall a few weeks prior and broke his nose. A NC CTB was obtained. It did not show any acute findings other than a Left maxillary fx and fluid in the Left maxillary sinus. CTA head and neck showed nosignificant areas of stenosis and no more than special occlusion. No aneurysms or large vascular malformations. MRI was ordered and showed no acute intracranial abnormality, specifically no evidence of acute ischemia. MRI of the cervical spine showed acquired multilevel spinal stenosis, severe at C3-C4 and C4-C5. There was mild to severe multilevel foraminal narrowing. There was myelomalacia at the level of C4 and C5 likely related to severe spinal canal stenosis. He was seen in consultation by Dr. Madi Diego who recommended C3-6 ACDF in hopes of halting the progression of myelopathy. Dr. Diego noted that the patient had preoperative baseline dysphagia. He was taken to surgery by on 04/26/2024 for C3-6 anterior cervical decompression/discectomy and fusion. Post operatively dysphagia increased. He has also experienced increased weakness in the RUE and his legs. He c/o tingling in the thighs anteriorly. He was evaluated by PT/OT/ST and transfer to acute inpt rehab was recommended. Afebrile VSS - Maintaining appropriate oxygen saturation on RA Oral intake - FOOD oral intake has been poor FLUIDS poor Discussed with nursing -he is retaining urine. Bladder scan postvoid was 359 and he had a straight catheterization done with 380 cc return. Post cath bladder scan was 0. Has been incontinent of urine. Reviewed the THERAPY notes Medication list reviewed. All lab from today was personally reviewed. Hemoglobin is 12.4. Hemoglobin at presentation to the emergency room was 16, more likely than not falsely elevatedsecondary to severe dehydration. White blood cell count is mildly elevated at 11.3. Platelets are within normal limits. Sodium is 137 and the potassium is 4.6. BUN is 27 which is up from 19 just yesterday. Creatinine is 0.89 which isstable and within his baseline. BUN/creatinine ratio is very elevated at 30.3. Phosphorus is low at 2.4 and the magnesium is 2.6. UA done on 04/27/2024 shows no bacteria and 0-5 white blood cells. Leukocyte esterase is negative and nitrite is negative. I reviewed a note from the ER physician on 09/15/2020 and at that time he was on Prozac 20 mg daily. Squad report and ER doc notes from presentation to the ED on 04/19/24 list no medications. Pt tells me that he does not like to take medications. He was taking no prescribed meds at presentation to the emergency department. [facility] Medical History (Updated 04/28/24 @ 15:[address] Corazon Wright, DO) Angiectasia of large intestine History of gastric polyp GERD with esophagitis Postural dizziness with near syncope Bilateral arm weakness Osteoarthritis Anxiety and depression Ventral hernia Loss of hearing Wears glasses Wears dentures Alcohol use History of IBS Heartburn Former smoker History of stress test Home Medications ?Medication ?Instructions ?Recorded ?Last Taken ?Type acetaminophen 325 mg tablet 650 mg (2 x 325 mg) PO Q6H PRN PRN 04/27/24 Unknown Rx Pain 1-10 Or Fever >100.7 #0 tabs benzocaine 15 mg-menthol 3.6 mg 1 juliet mucous membrane Q2H PRN PRN 04/27/24 Unknown Rx lozenges (Sore Throat (benzocaine SORE THROAT #0 ea with menthol)) carboxymethylcellulose sodium 0.5 2 drp EACH EYE Q1H P RN DRY EYES #0 04/27/24 Unknown Rx % eye drops (Refresh Tears) mL diazepam 2 mg tablet 2 mg PO 4X/DAY PRN PRN Verti go #0 04/27/24 Unknown Rx tabs food supplemt, lactose-reduced 120 ml PO TIDCM supplem ent #0 mL 04/27/24 Unknown Rx 0.08 gram-1.5 kcal/mL oral liquid (Ensure Plus High Protein) meclizine 25 mg tablet 12.5 mg (1/2 x 25 mg) PO TID PRN 04/27/24 Unknown Rx dizziness #0 tabs meloxicam 15 mg tablet 15 mg PO DAILY antiinflammat ory #0 04/27/24 04/27/24 Rx tabs methocarbamol 500 mg tablet 1,000 mg (2 x 500 mg) PO 4 X/DAY 04/27/24 Unknown Rx muscle relaxer #0 tabs midodrine 5 mg tablet 10 mg (2 x 5 mg) PO TIDCM Unknown Rx hypotension #0 tabs oxycodone 5 mg tablet 2.5 - 5 mg (0.5 - 1 x 5 mg) PO Q4H 04/27/24 Unknown Rx PRN PRN Pain Score 4-10 #0 tabs pantoprazole 20 mg tablet,delayed 20 mg PO DAILY reflu x #30 tabs 04/27/24 Unknown Rx release sennosides 8.6 mg-docusate sodium 2 tab PO BID laxativ e #0 tabs 04/27/24 Unknown Rx 50 mg tablet (Stimulant Laxative Plus) tamsulosin 0.4 mg capsule 0.4 mg PO DAILY@1730 prostat e 04/27/24 Unknown Rx health #0 caps Allergy/AdvReac Type Severity Reaction Status Date / Time No Known Allergies Allergy Verified 04/27/24 15:41 Family History (Updated 04/28/24 @ 11:[address] Corazon Wright DO) Father , at 40 YOA of an SC Heart disease Other Hypertension Surgical History (Updated 04/28/24 @ 11:[address] Corazon Wright DO) Status post cervical spinal fusion History of esophagogastroduodenoscopy (EGD) Hx of colonoscopy History of tonsillectomy and adenoidectomy History of appendectomy Social History (Updated 04/28/24 @ 12:[address] Corazon Wright DO) household members: none and other details: He is . Ex is Nan and she still is in contact. housing: apartment number of children: 2 Smoking Status: Former smoker quit date: 02/09/68 how long ago did patient quit smokin years alcohol intake: current alcohol intake frequency: holidays/special occasions only details: Tells me that he never drinks now. Tells me he drank too much in past. substance use type: does not use ROS Constitutional Constitutional: Reports anorexia, change in weight, frequent falls, malaise and weight loss; Denies chills, daytime sleepiness, difficulty sleeping, fatigue, fever(s), headache(s), night sweats or weakness Eyes Eyes: Denies blurry vision, change in vision, discharge from eye(s), double vision, eye pain or loss of vision ENT HEENT: Reports dysphagia, hoarseness and sore throat; Denies abnormal hearing, headache(s), hearing loss, mouth pain or nasal congestion Cardiovascular Cardiovascular: Reports dizziness, lightheadedness, numbness in extremities, orthostatic symptoms, periorbital swelling and weakness in extremities; Denies chest pain, dyspnea on exertion, edema, orthopnea, palpitations, paroxysmal nocturnal dyspnea, pedal edema or syncope Respiratory/Chest Respiratory/Chest: Denies chest tightness, cough, dyspnea, restlessness, shortness of breath at rest, shortness of breath with exertion or wheezing Gastrointestinal Gastrointestinal: Reports constipation and other Details: Had not had a BM in 8 days......had a BM last night after Dulcolax 10 mg PO. Has been having problemswith constipation at home at times. ; Denies abdominal pain, diarrhea, dyspepsia, hematemesis, hematochezia, nausea orvomiting Genitourinary Genitourinary: Reports change in urinary stream, difficulty urinating, dribbling, post void dribbling, urinary hesitancy, urinary incontinence and urinary urgency; Denies burning urination, dysuria, flank pain, hematuria, low back pain, nocturia, penile discharge, scrotal pain or urinary frequency Musculoskeletal Musculoskeletal: Reports atrophy, difficulty walking, muscle weakness, neck painand tingling; Denies back pain, joint pain, joint swelling or tremors Integumentary Integumentary: Reports alopecia, dry skin and other Details: Incision left anterior neck secondary to recent laminectomy/fusion ; Denies jaundice, pruritus or rash Neurologic Neurologic: Reports disequilibrium, dizziness, focal weakness, frequent falls, paresthesias, sensory deficit, weakness and other Details: Near syncope ; Denies confusion, headache(s), seizures, syncope, tremor(s) or vertigo Psychiatric Psychiatric: Reports cognitive impairment, depression and other Details: Since he hit his head in recent fall he has had fuzzy thinking. ; Denies anxiety, homicidal ideation, irritability, suicidal ideation, suicidal thoughts or visual hallucinations Endocrine Endocrinology: Reports other Details: ex tells him taht he is looking skinny ; Denies change in body appearance, polydipsia or polyuria Hematologic/Lymphatic Hematologic/Lymphatic: Reports easy bruising; Denies easy bleeding or lymphadenopathy Allergic/Immunologic Allergic/Immunologic: Denies rhinitis, eczemia or asthma Vital Signs Vital Signs Vital Signs: 04/27/24 15:31 04/27/24 16:48 04/27/24 22:00 Temperature 97.8 F Temperature Source Oral Pulse Rate 62 Pulse Rate [Lying] Pulse Rate [Sitting (for 1 minute prior to obtaining)] Respiratory Rate 16 16 Respiratory Effort Normal Non-Labored Normal Non-Labored Respiratory Depth Normal Normal Respiratory Pattern Normal Normal Blood Pressure 138/64 H Blood Pressure [Lying] Blood Pressure [Sitting (for 1 minute prior to obtaining)] Blood Pressure Mean 88 Blood Pressure Mean [Lying] Blood Pressure Mean [Sitting (for 1 minute prior to obtaining)] Blood Pressure Source Monitor Blood Pressure Position Semi-Fowlers Blood Pressure Location Left Arm Pulse Ox 94 Oxygen Delivery Method Room Air Room Air Room Air 04/28/24 05:43 04/28/24 06:00 04/28/24 08:34 Temperature 98.1 F Temperature Source Oral Pulse Rate 63 Pulse Rate [Lying] 63 Pulse Rate [Sitting (for 1 minute prior to obtaining)] 61 Respiratory Rate 16 Respiratory Effort Normal Non-Labored Respiratory Depth Normal Respiratory Pattern Normal Blood Pressure 128/64 H Blood Pressure [Lying] 137/62 H Blood Pressure [Sitting (for 1 minute prior to obtaining)] 128/64 H Blood Pressure Mean 85 Blood Pressure Mean [Lying] 87 Blood Pressure Mean [Sitting (for 1 minute prior to obtaining)] 85 Blood Pressure Source Monitor Blood Pressure Position Semi-Fowlers Blood Pressure Location Left Arm Pulse Ox 93 Oxygen Delivery Method Room Air Room Air Weight Weight: 170 lb 1.6 oz Body Mass Index (BMI) 25.7 Physical Exam Const alert, oriented x3 and no apparent distress Constitutional Narrative: Sitting in the recliner at the bedside. Pleasant and forthcoming. General Appearance: cooperative and well kempt HEENT HEENT Narrative: Periorbital ecchymosis on the Left side and also has ecchymosis of the left faceat the jawline. Conjunctiva is clear today. Mucous membranes are very dry. Nothrush. The tongue protrudes on the midline. Eyes PERRL, EOMs intact bilaterally, conjunctivae normal and no scleral icterus Eyes Narrative: No discharge from the eyes and no mattering of the eyelashes. Direct Ophthalmoscopy: normal light reflex Neck Neck Narrative: He is in a rigid cervical collar. Chest Chest: symmetrical chest wall rise Resp normal respiratory effort, normal air movement and clear to auscultation bilaterally Effort and Inspection: able to speak in complete sentences; Negative for abnormal respiratory pattern, tachypneic, pursed lip breathing or labored Cardio regular rate, regular rhythm, S1 normal heart sound, S2 normal heart sound, no murmurs, no rub and no gallops Cardio Narrative: No ectopy GI normal to inspection, nondistended, normoactive bowel sounds, soft to palpation,non-tender and no bruits GI Narrative: No guarding with palpation. Positive ventral hernia. no CVA tenderness Extremity no calf tenderness and no pedal edema General Extremity: Negative for clubbing or cyanosis Skin Skin Narrative: Left anterior cervical incision secondary to recent discectomy and fusion C3-C6. General Skin Exam: no breakdown Rashes: no rashes Neuro oriented x3 and CN's II-XII intact bilaterally Neuro Narrative: No movement against gravity LUE. + muscle atrophy. Left should is subluxed dueto muscle atrophy. 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 R arm falls immediately to the bed when I lift it up. He has some tone in the R triceps, biceps and brachioradialis muscle. Has shoulder shrug BL which is about even. NO tremors. 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 He can lift both legs off the bed and hold for 5 sec. Good plantar flexion and dorsiflexion with both feet. PERRLA. No faciall droop. No nystagmus. Tracks well and did not have vertigo Psych mental status grossly normal, thought process normal and cooperative Psych Narrative: depressed affect. Not suicidal......his confucianism (Religious) feels this is a sinand you will not get into heaven per patient. Has been losing wt and appetite has been decreased. Some difficulty speaking. Not motivated to take care of himself and has had Weakness in the LUE for 2 years without seeing anyone for this. Lives alone. Does not appear anxious. Makes good eye contact with me. He is engaged in what we are telling him. Not restless or fidgety. Appearance: grossly normal, appropriate and well kempt Attitude: calm, engaged, No evasive and No agitated Activity / Motor Behavior: appropriate eye contact and other Has some psychomotor slowing.......due to depression? Tells me that this has become apparent to him since the fall recently.....has had several falls over the past 6 months. ; Negative for psychomotor agitation Speech: normal speech Results Lab / Micro Data 04/28/24 05:53 04/28/24 05:53 Labs: Laboratory Results - last 24 hr 04/27/24 22:05: Urine Color Straw, Urine Clarity Clear, Urine pH 5.0, Ur Specific [place] 1.020, Urine Protein 15 H, Urine Glucose (UA) Normal, Urine Ketones Negative, Urine Occult Blood Negative, Urine Nitrite Negative, Urine Bilirubin Negative, Urine Urobilinogen 1 H, Ur Leukocyte Esterase Negative, Urine RBC 0 SEEN, Urine WBC 0- 5 SEEN, Ur Squamous Epith Cells 0 SEEN, Urine Bacteria 0 SEEN, Urine Mucus 1+ 04/28/24 05:53: WBC 11.3 H, RBC 4.05 L, Hgb 12.4 L, Hct 35.3 L, MCV 87.2, MCH 30.6, MCHC 35.1, RDW Std Deviation 40.3, RDW Coeff of Delia 12.7, Plt Count 164, MPV 8.8, Sodium 137, Potassium 4.6, Chloride 106, Carbon Dioxide 22.8, Anion Gap8, BUN 27 H, Creatinine 0.89, Estim Creat Clear Calc 61.91, Est GFR (MDRD) Non-Af 86, BUN/Creatinine Ratio 30.3 H, Glucose 91, Calcium 8.0, Phosphorus 2.4 L, Magnesium 2.6 H Assessment & Plan Assessment/Plan (1) Debility: (2) Fall: QUALIFIERS: Encounter type: subsequent encounter Qualified Code(s): W19.XXXD - Unspecified fall, subsequent encounter (3) Cervical stenosis of spinal canal: (4) Foraminal stenosis of cervical region: (5) Cervical cord myelomalacia: (6) Cervical myelopathy: (7) Status post cervical spinal fusion: PLAN: Anterior cervical discectomy/decompression and fusion by Dr. Madi Diego on 04/26/2024. (8) Acute blood loss as cause of postoperative anemia: (9) Traumatic brain injury with loss of consciousness: QUALIFIERS: Encounter type: subsequent encounter Qualified Code(s): S06.9X9D - Unspecified intracranial injury with loss of consciousness of unspecified duration, subsequent encounter PLAN: suspected (10) Left maxillary fracture: (11) Dysphagia: (12) Bilateral arm weakness: PLAN: L>>R. Also with paresthesias in both UE's (13) Postural dizziness with near syncope: (14) Severe dehydration: (15) Orthostatic hypotension: (16) Urine retention: (17) Urinary hesitancy: (18) Urinary incontinence: QUALIFIERS: Urinary Incontinence type: unspecified incontinence Qualified Code(s): R32 - Unspecified urinary incontinence (19) BPH (benign prostatic hyperplasia): (20) GERD with esophagitis: QUALIFIERS: Esophagitis bleeding: without hemorrhage Qualified Code(s): K21.00 - Gastro-esophageal reflux disease with esophagitis, without bleeding (21) History of IBS: (22) Anxiety and depression: (23) Chronic left shoulder pain: (24) Ventral hernia: QUALIFIERS: Obstruction and gangrene presence: without obstructionor gangrene Qualified Code(s): K43.9 - Ventral hernia without obstruction or gangrene PLAN: Plan PLAN PT for gait stability OT for ADL's ST for evaluation for swallowing -suspect recurrent laryngeal nerve dysfunction Analgesics as needed-scheduled Tylenol 1 g p.o. every 8 hours and continue oxycodone every 4 hours as needed for the pain 4-10 Bowel protocol Fall precautions Assess for Anxiety/Depression GI prophylaxis -continue Protonix DVT prophylaxis with -will discuss with surgery. For now we will use SCDs and YESSICA rogel Follow up with [] following DC from [facility] Rehab AM lab including CMP, CBC, Mag and Phos TSH, baseline cortisol, PSA.....consider a Cortrosyn stim test in the AM. Normal saline 1 L over 1 hour and then decrease the rate to 100 cc/h Hold Flomax for now due to severe orthostasis Recheck orthostatics in the a.m. Discontinue Ativan and meclizine-he does not have vertigo he has near syncope/lightheadedness secondary to orthostasis Discontinue meloxicam due to interference with fusion. consider weaning Robaxin in the next few days. Discuss pharmacologic DVT prophylaxis with Dr. Diego. Obtain Dr. Menjivar's records. Pt is depressed and Dr. Menjivar had started a anti-depressant but, it gave him diarrhea and it was stopped. Would like to know what drug he was given for depression. I believe the drug was Prozac.....this was documented in a ED visit 09/15/20. Pt attributes diarrhea to Prozac but, he has been diagnosed with IBS D in the past and he also has constipation at times........I suspect the Prozac has nothing to do with diarrhea. BP sitting up with legs dependent was recently 79/48 and he did get Midodrine this AM. Will continue Midodrine and hydrate aggressively. 85 Minutes spent reviewing past diagnostic tests, lab results, vital sign trends, medical history, medications, all additional paperwork sent by the previous hospital, and ordering medications, examining the the patient and completing documentation. Charges/Coding Visit Charges Inpatient E&M: 78038 Init Hosp L3 04/28/24 1519 <Electronically signed by Corazon Wright DO> Cosigner Signature (if applicable): CC: Dr. Kwabnea Menjivar MD; Dr. Corazon Wright DO~ Signed ADDENDUM by Dr. Corazon Wright DO on 04/28/24 at 1524 Addendum PSA is normal at 0.33. TSH is normal at 1.03. The a.m. cortisol is low at 3.92 and this is in a patient who recently had surgery and is in pain so I would expect it to be high. Phos is low so will supplement. Recheck lab on Wednesday. Cortrosyn stimulation test in the AM. 04/28/24 1524<Electronically signed by Corazon Wright DO> Cosigner Signature (if applicable): cc: Dr. Kwabena Menjivar MD; Dr. Corazon Wright DO ~* Signed [facility] Work Phone: [phone] 333-126503-21-2025 History and physical note [facility] Medical Records Department [address] [place] [address] Post Admission Physician Jodie 04/28/24 1241 MR#: [id number] Acct: [id number] Name: MOEYAS Brigido Rep #:[id number] : 1940 83 From: Corazon Wright DO PCP: Dr. Kwabena Menjivar MD Status :ADM IN Location: [place] [address] Admission Information Primary Diagnosis:: DEBILITY DUE TO CERVICAL STENOSIS WITH MYELOPATHY Status Changes from Prescreening?: No changes Identified Actual Problem List:: Falls, Skin Intergrity, Cognitve Impr/Memory Loss, Depression, Bladder Incontinence, Bowel, Constipation, Mobility Impaired, Self Care Deficit, Know.Dfct/Disease Process, Know.Dfct of Medicaitons, BP, Hypotension, Fluid Change-Dehydration and Alteration-Leisure Activ. Potential Problem List:: DVT, Bleeding, Infection, UTI, Aspiration, Falls, Skin Integrity and Depression Risk of Complications DVT: YESSICA Hose and Sequential Compression Device Bleeding: Monitor Lab Values, Nursing to Teach Precautions for anti-coagulation therapy., Wound, ifapplicable, to be assessed every shift. and Stroke patients assessed for lethargy or change in status. Infection: Clinical Staff to Monitor for S/S of infection: and S/S of infection include fever, redness, warmth, etc. Urinary Tract Infection: Monitor for frequency, burning, discomfort, or incontinence. and Nursing will obtain urine sample for urinalysis and C&S when ordered. Aspiration: Clinical staff will monitor for coughing, drooling, congestion., Speech will evaluate swallowing and dsyphasia. and Nursing will monitor patient swallowing during meals. Falls: Patient will be evaluated for Fall Precautions and Patient will be placedon Fall Precautionsas indicated per protocol. Skin Breakdown: Nursing will assess skin daily using assessment tool. and Nursing will place on Skin Breakdown Precautions as indicated. Pain: Clinical staff will assess patient's pain level per protocol., Medicationswill be given, if needed, and the pain level reassessed. and Other methods: Massage, distraction, decrease stimulus, etc. used PRN. Plan of Care Patient requires physician specializing in physical medicine and rehab oversightto provide close medical supervision of rehab issues including: Pain Management,Sleep Problems, Bowel and Bladder, Medical and co-morbidity Management, DVT prophylaxis, Rehabilitation Leadership and Coordination of treat ment team Patient needs Physical Therapy: For a minimum of 1 hour and At least 5 out of 7 days Patient needs Physical Therapy to improve:: Mobility, Strengthening, Transfers, Stretching, ROM, Endurance, Stairs, Gait and Balance Patient needs Occupational Therapy: For a minimum of 1 hour and At least 5 out of 7 days Patient needs Occupational Therapy to improve ADL's incl.: Eating, Grooming, Bathing, Dressing, Toileting, Toilet transfers, Community Reintegration, Higher functioning activities, Household tasks, Adaptive Equipment, Splinting and Otheractivities as determined Patient requires speech therapy: For a minimum of 1 hour and At least 5 out of 7days Patient requires speech therapy for: Swallowing, Cognition, Language Skills and Compensatory Strategies Patient requires 24/7 Rehabilitation Nursing for: Pain Issues, Identifying and preventing risk factors, Monitoring and reporting current medical conditions, Assisting with ambulation, transfer, and all ADL's, Teaching patients about disease process and medications, Family teaching, Providing safe environment, Bowel and Bladder Issues, Skin integrity and Medication Management Patient needs Morning News Producer/ Case Management for: Discharge Planning, Arranging Home Equipment orServices and Family Interventions Patient needs Dietary and Nutrition Services for: Adequate Nutrition, Nutritional Supplements and Nutritional Education Goals Goals Patient will remain: free from falls Patient will perform eating at: - (min assist to MOD I) Patient will perform bed mobility at: MOD I level of assist. Patient will complete transfers from bed to chair at: - (Contact-guard assist) Patient will ambulate: - (165 feet with least restrictive device on various surfaces) Patient will complete upper body dressing at: - (Min assist) Patient will complete lower body dressing at: - (Min assist with adaptive equipment as needed) Patient will complete toilet transfer at: - (Min assist) Patient will complete toileting at: - (Min assist) Patient will perform bathing at: - (Min assist for upper body bathing and lower body bathing at [facility] with adaptive equipment as needed.) Patient will perform Tub/Shower transfer at: - (Min assist with DME as needed) Patient will complete grooming at: - (Minimal assistance while seated at the sink) Patient will achieve: - (12 steps with 1 handrail to allow access to his 's basement at [facility]. ) Patient will have pain level of: of 3 or less Patient's skin will: remain intact Patient will receive: adequate nutrition. Discharge Planning Pt Prognosis for Sig. Practical Improv. w/in Reasonable Time: Good Estimated Length of stay (days): 28 Anticipated D/C Destination: TBD Was Preadmission Assessment Accurate?: Yes 04/28/24 6241 Cosigner Signature (if applicable): CC: ~ Signed [facility]03-21-2025 History and physical note [facility] Medical Records Department [address] [place] [address] History & Physical Exam 04/28/24 1015 MR#: [id number] Acct: [id number] Name: YAS ROSA Rep #:[id number] : 1940 83 From: Corazon Wright DO PCP: Dr. Kwabena Menjivar MD Status :ADM IN Location: [place] [address] HPI - General General Date of Admission: 04/27/24 Date of Service: 04/28/24 Chief Complaint: Debility due to cervical canal stenosis with myelopathy and neuropathy. HPI Juli ROSA, is a 83 YO M with a past medical history of irritable bowel syndrome with alternating diarrhea and constipation, colonic angioectasias, GERDwith reflux esophagitis, anxiety/depression, remote tobacco dependence (quit in 1968), alcohol abuse , ventral hernia, presbycusis and progressiveweakness, numbness and loss of function of the LUE over the past 2 years. Also has had numbness andincoordination with the R hand over the past several months. He lives alone and has had several falls over the past 6 months. He complains of Lightheadedness (when he is up and moving) and near syncope over at least the past 6 months. Lightheadedness improves when he is seated and not moving. He den ies any vertigo. He presented to the ED at [facility] on 04/19/24 after having a fall in the BR at home. When EMS arrived he was lying beside the couch and wasalert oriented x 3. He told EMS that he became lightheaded and sat down on the edge of the tub. He can not recall what happened after he sat down onthe edge of the tub. At presentation to the ED he had weakness of the L arm, an occipitalscalp hematoma and bruising/hematoma of the left face. He denied TORRES but, he complained of neck pain. He had a fall a few weeks prior and broke his nose. A NC CTB was obtained. It did not show any acute findingsother than a Left maxillary fx and fluid in the Left maxillary sinus. CTA head and neck showed nosignificant areas of stenosis and no more than special occlusion. No aneurysms or large vascular malformations. MRI was ordered and showed no acute intracranial abnormality, specifically no evidence of acute ischemia. MRI of the cervical spine showed acquired multilevel spinal stenosis, severe at C3-C4 and C4-C5. There was mild to severe multilevel foraminal narrowing. There was myelomalacia at the level of C4 and C5 likely related to severe spinal canal stenosis. He was seen in consultation by Dr. Madi Diego who recommended C3-6 ACDF in hopes of halting the progression of myelopathy. Dr. Diego noted that the patient had preoperative baseline dysphagia. He was taken to surgery by on04/26/2024 for C3-6 anterior cervical decompression/discectomy and fusion. Post operatively dysphagia increased. He has also experienced increased weakness in the RUE and his legs. He c/o tingling in the thighs anteriorly. He was evaluated by PT/OT/ST and transfer to acute inpt rehab was recommended. Afebrile VSS - Maintaining appropriate oxygen saturation on RA Oral intake - FOOD oral intake has been poor FLUIDS poor Discussed with nursing -he is retaining urine. Bladder scan postvoid was 359 and he had a straight catheterization done with 380 cc return. Post cath bladder scan was 0. Has been incontinent of urine. Reviewed the THERAPY notes Medication list reviewed. All lab from today was personally reviewed. Hemoglobin is 12.4. Hemoglobin at presentation to the emergency room was 16, more likely than not falsely elevatedsecondary to severe dehydration. White blood cell count is mildly elevated at 11.3. Platelets are within normal limits. Sodium is 137 and the potassium is 4.6. BUN is 27 which is up from 19 just yesterday. Creatinine is 0.89 which isstable and within his baseline. BUN/creatinine ratio is very elevated at 30.3. Phosphorus is low at 2.4 and the magnesium is 2.6. UA done on 04/27/2024 shows no bacteria and 0-5 white blood cells. Leukocyte esterase is negative and nitrite is negative. I reviewed a note from the ER physician on 09/15/2020 and at that time he was on Prozac 20 mg daily. Squad report and ER doc notes from presentation to the ED on 04/19/24 list no medications. Pt tells me that he does not like to take medications. He was taking no prescribed meds at presentation to theemergency department. [facility] Medical History (Updated 04/28/24 @ 15:[address] Corazon Wright, DO) Angiectasia of large intestine History of gastric polyp GERD with esophagitis Postural dizziness with near syncope Bilateral arm weakness Osteoarthritis Anxiety and depression Ventral hernia Loss of hearing Wears glasses Wears dentures Alcohol use History of IBS Heartburn Former smoker History of stress test Home Medications ?Medication ?Instructions ?Recorded ?Last Taken ?Type acetaminophen 325 mg tablet 650 mg (2 x 325 mg) PO Q6H PRN PRN 04/27/24 Unknown Rx Pain 1-10 Or Fever >100.7 #0 tabs benzocaine 15 mg-menthol 3.6 mg 1 juliet mucous membrane Q2H PRN PRN 04/27/24 Unknown Rx lozenges (Sore Throat (benzocaine SORE THROAT #0 ea with menthol)) carboxymethylcellulose sodium 0.5 2 drp EACH EYE Q1H P RN DRY EYES #0 04/27/24 Unknown Rx % eye drops (Refresh Tears) mL diazepam 2 mg tablet 2 mg PO 4X/DAY PRN PRN Verti go #0 04/27/24 Unknown Rx tabs food supplemt, lactose-reduced 120 ml PO TIDCM supplem ent #0 mL 04/27/24 Unknown Rx 0.08 gram-1.5 kcal/mL oral liquid (Ensure Plus High Protein) meclizine 25 mg tablet 12.5 mg (1/2 x 25 mg) PO TID PRN 04/27/24 Unknown Rx dizziness #0 tabs meloxicam 15 mg tablet 15 mg PO DAILY antiinflammat ory #0 04/27/24 04/27/24 Rx tabs methocarbamol 500 mg tablet 1,000 mg (2 x 500 mg) PO 4 X/DAY 04/27/24 Unknown Rx muscle relaxer #0 tabs midodrine 5 mg tablet 10 mg (2 x 5 mg) PO TIDCM Unknown Rx hypotension #0 tabs oxycodone 5 mg tablet 2.5 - 5 mg (0.5 - 1 x 5 mg) PO Q4H 04/27/24 Unknown Rx PRN PRN Pain Score 4-10 #0 tabs pantoprazole 20 mg tablet,delayed 20 mg PO DAILY reflu x #30 tabs 04/27/24 Unknown Rx release sennosides 8.6 mg-docusate sodium 2 tab PO BID laxativ e #0 tabs 04/27/24 Unknown Rx 50 mg tablet (Stimulant Laxative Plus) tamsulosin 0.4 mg capsule 0.4 mg PO DAILY@1730 prostat e 04/27/24 Unknown Rx health #0 caps Allergy/AdvReac Type Severity Reaction Status Date / Time No Known Allergies Allergy Verified 04/27/24 15:41 Family History (Updated 04/28/24 @ 11:[address] Corazon Wright, DO) Father , at 40 YOA of an SC Heart disease Other Hypertension Surgical History (Updated 04/28/24 @ 11:[address] Corazon Wright DO) Status post cervical spinal fusion History of esophagogastroduodenoscopy (EGD) Hx of colonoscopy History of tonsillectomy and adenoidectomy History of appendectomy Social History (Updated 04/28/24 @ 12:[address] Corazon Wright DO) household members: none and other details: He is . Ex is Nan and she still is in contact. housing: apartment number of children: 2 Smoking Status: Former smoker quit date: 02/09/68 how long ago did patient quit smokin years alcohol intake: current alcohol intake frequency: holidays/special occasions only details: Tells me that he never drinks now. Tells me he drank too much in past. substance use type: does not use ROS Constitutional Constitutional: Reports anorexia, change in weight, frequent falls, malaise and weight loss; Denieschills, daytime sleepiness, difficulty sleeping, fatigue, fever(s), headache(s), night sweats or weakness Eyes Eyes: Denies blurry vision, change in vision, discharge from eye(s), double vision, eye pain or loss of vision ENT HEENT: Reports dysphagia, hoarseness and sore throat; Denies abnormal hearing, headache(s), hearingloss, mouth pain or nasal congestion Cardiovascular Cardiovascular: Reports dizziness, lightheadedness, numbness in extremities, orthostatic symptoms, periorbital swelling and weakness in extremities; Denies chest pain, dyspnea on exertion, edema, orthopnea, palpitations, paroxysmal nocturnal dyspnea, pedal edema or syncope Respiratory/Chest Respiratory/Chest: Denies chest tightness, cough, dyspnea, restlessness, shortness of breath at rest, shortness of breath with exertion or wheezing Gastrointestinal Gastrointestinal: Reports constipation and other Details: Had not had a BM in 8 days......had a BM last night after Dulcolax 10 mg PO. Has been having problemswith constipation at home at times. ; Denies abdominal pain, diarrhea, dyspepsia, hematemesis, hematochezia, nausea orvomiting Genitourinary Genitourinary: Reports change in urinary stream, difficulty urinating, dribbling, post void dribbling, urinary hesitancy, urinary incontinence and urinary urgency; Denies burning urination, dysuria, flank pain, hematuria, low back pain, nocturia, penile discharge, scrotal pain or urinary frequency Musculoskeletal Musculoskeletal: Reports atrophy, difficulty walking, muscle weakness, neck painand tingling; Denies back pain, joint pain, joint swelling or tremors Integumentary Integumentary: Reports alopecia, dry skin and other Details: Incision left anterior neck secondary to recent laminectomy/fusion ; Denies jaundice, pruritus or rash Neurologic Neurologic: Reports disequilibrium, dizziness, focal weakness, frequent falls, paresthesias, sensory deficit, weakness and other Details: Near syncope ; Denies confusion, headache(s), seizures, syncope, tremor(s) or vertigo Psychiatric Psychiatric: Reports cognitive impairment, depression and other Details: Since he hit his head in recent fall he has had fuzzy thinking. ; Denies anxiety, homicidal ideation, irritability, suicidal ideation, suicidal thoughts or visual hallucinations Endocrine Endocrinology: Reports other Details: ex tells him taht he is looking skinny ; Denies change in body appearance, polydipsia or polyuria Hematologic/Lymphatic Hematologic/Lymphatic: Reports easy bruising; Denies easy bleeding or lymphadenopathy Allergic/Immunologic Allergic/Immunologic: Denies rhinitis, eczemia or asthma Vital Signs Vital Signs Vital Signs: 04/27/24 15:31 04/27/24 16:48 04/27/24 22:00 Temperature 97.8 F Temperature Source Oral Pulse Rate 62 Pulse Rate [Lying] Pulse Rate [Sitting (for 1 minute prior to obtaining)] Respiratory Rate 16 16 Respiratory Effort Normal Non-Labored Normal Non-Labored Respiratory Depth Normal Normal Respiratory Pattern Normal Normal Blood Pressure 138/64 H Blood Pressure [Lying] Blood Pressure [Sitting (for 1 minute prior to obtaining)] Blood Pressure Mean 88 Blood Pressure Mean [Lying] Blood Pressure Mean [Sitting (for 1 minute prior to obtaining)] Blood Pressure Source Monitor Blood Pressure Position Semi-Fowlers Blood Pressure Location Left Arm Pulse Ox 94 Oxygen Delivery Method Room Air Room Air Room Air 04/28/24 05:43 04/28/24 06:00 04/28/24 08:34 Temperature 98.1 F Temperature Source Oral Pulse Rate 63 Pulse Rate [Lying] 63 Pulse Rate [Sitting (for 1 minute prior to obtaining)] 61 Respiratory Rate 16 Respiratory Effort Normal Non-Labored Respiratory Depth Normal Respiratory Pattern Normal Blood Pressure 128/64 H Blood Pressure [Lying] 137/62 H Blood Pressure [Sitting (for 1 minute prior to obtaining)] 128/64 H Blood Pressure Mean 85 Blood Pressure Mean [Lying] 87 Blood Pressure Mean [Sitting (for 1 minute prior to obtaining)] 85 Blood Pressure Source Monitor Blood Pressure Position Semi-Fowlers Blood Pressure Location Left Arm Pulse Ox 93 Oxygen Delivery Method Room Air Room Air Weight Weight: 170 lb 1.6 oz Body Mass Index (BMI) 25.7 Physical Exam Const alert, oriented x3 and no apparent distress Constitutional Narrative: Sitting in the recliner at the bedside. Pleasant and forthcoming. General Appearance: cooperative and well kempt HEENT HEENT Narrative: Periorbital ecchymosis on the Left side and also has ecchymosis of the left faceat the jawline. Conjunctiva is clear today. Mucous membranes are very dry. Nothrush. The tongue protrudes on the midline. Eyes PERRL, EOMs intact bilaterally, conjunctivae normal and no scleral icterus Eyes Narrative: No discharge from the eyes and no mattering of the eyelashes. Direct Ophthalmoscopy: normal light reflex Neck Neck Narrative: He is in a rigid cervical collar. Chest Chest: symmetrical chest wall rise Resp normal respiratory effort, normal air movement and clear to auscultation bilaterally Effort and Inspection: able to speak in complete sentences; Negative for abnormal respiratory pattern, tachypneic, pursed lip breathing or labored Cardio regular rate, regular rhythm, S1 normal heart sound, S2 normal heart sound, no murmurs, no rub and no gallops Cardio Narrative: No ectopy GI normal to inspection, nondistended, normoactive bowel sounds, soft to palpation,non-tender and no bruits GI Narrative: No guarding with palpation. Positive ventral hernia. no CVA tenderness Extremity no calf tenderness and no pedal edema General Extremity: Negative for clubbing or cyanosis Skin Skin Narrative: Left anterior cervical incision secondary to recent discectomy and fusion C3-C6. General Skin Exam: no breakdown Rashes: no rashes Neuro oriented x3 and CN's II-XII intact bilaterally Neuro Narrative: No movement against gravity LUE. + muscle atrophy. Left should is subluxed dueto muscle atrophy. 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 R arm falls immediately to the bed when I lift it up. He has some tone in the R triceps, biceps and brachioradialis muscle. Has shoulder shrug BL which is about even. NO tremors.R power plant operations manager is weak and heb is R hand dominant. He can lift both legs off the bed and hold for 5 sec. Good plantar flexion and dorsiflexion with both feet. PERRLA. No faciall droop. No nystagmus. Tracks well and did not have vertigo Psych mental status grossly normal, thought process normal and cooperative Psych Narrative: depressed affect. Not suicidal......his confucianism (Religious) feels this is a sinand you will not getinto heaven per patient. Has been losing wt and appetite has been decreased. Some difficulty speaking. Not motivated to take care of himself and has had Weakness in the LUE for 2 years without seeinganyone for this. Lives alone. Does not appear anxious. Makes good eye contact with me. He is engaged in what we are telling him. Not restless or fidgety. Appearance: grossly normal, appropriate and well kempt Attitude: calm, engaged, No evasive and No agitated Activity / Motor Behavior: appropriate eye contact and other Has some psychomotor slowing.......dueto depression? Tells me that this has become apparent to him since the fall recently.....has had several falls over the past 6 months. ; Negative for psychomotor agitation Speech: normal speech Results Lab / Micro Data 04/28/24 05:53 04/28/24 05:53 Labs: Laboratory Results - last 24 hr 04/27/24 22:05: Urine Color Straw, Urine Clarity Clear, Urine pH 5.0, Ur Specific [place] 1.020, Urine Protein 15 H, Urine Glucose (UA) Normal, Urine Ketones Negative, Urine Occult Blood Negative, Urine Nitrite Negative, Urine Bilirubin Negative, Urine Urobilinogen 1 H, Ur Leukocyte Esterase Negative, Urine RBC 0 SEEN, Urine WBC 0-5 SEEN, Ur Squamous Epith Cells 0 SEEN, Urine Bacteria 0 SEEN, Urine Mucus 1+ 04/28/24 05:53: WBC 11.3 H, RBC 4.05 L, Hgb 12.4 L, Hct 35.3 L, MCV 87.2, MCH 30.6, MCHC 35.1, RDW Std Deviation 40.3, RDW Coeff of Delia 12.7, Plt Count 164, MPV 8.8, Sodium 137, Potassium 4.6, Chloride 106, Carbon Dioxide 22.8, Anion Gap8, BUN 27 H, Creatinine 0.89, Estim Creat Clear Calc 61.91, Est GFR (MDRD) Non-Af 86, BUN/Creatinine Ratio 30.3 H, Glucose 91, Calcium 8.0, Phosphorus 2.4 L, Magnesium 2.6 H Assessment & Plan Assessment/Plan (1) Debility: (2) Fall: QUALIFIERS: Encounter type: subsequent encounter Qualified Code(s): W19.XXXD - Unspecified fall, subsequent encounter (3) Cervical stenosis of spinal canal: (4) Foraminal stenosis of cervical region: (5) Cervical cord myelomalacia: (6) Cervical myelopathy: (7) Status post cervical spinal fusion: PLAN: Anterior cervical discectomy/decompression and fusion by Dr. Madi Diego on 04/26/2024. (8) Acute blood loss as cause of postoperative anemia: (9) Traumatic brain injury with loss of consciousness: QUALIFIERS: Encounter type: subsequent encounter Qualified Code(s): S06.9X9D - Unspecified intracranial injury with loss of consciousness of unspecified duration, subsequent encounter PLAN: suspected (10) Left maxillary fracture: (11) Dysphagia: (12) Bilateral arm weakness: PLAN: L>>R. Also with paresthesias in both UE's (13) Postural dizziness with near syncope: (14) Severe dehydration: (15) Orthostatic hypotension: (16) Urine retention: (17) Urinary hesitancy: (18) Urinary incontinence: QUALIFIERS: Urinary Incontinence type: unspecified incontinence Qualified Code(s): R32 - Unspecified urinary incontinence (19) BPH (benign prostatic hyperplasia): (20) GERD with esophagitis: QUALIFIERS: Esophagitis bleeding: without hemorrhage Qualified Code(s): K21.00 - Gastro-esophageal reflux disease with esophagitis, without bleeding (21) History of IBS: (22) Anxiety and depression: (23) Chronic left shoulder pain: (24) Ventral hernia: QUALIFIERS: Obstruction and gangrene presence: without obstructionor gangrene Qualified Code(s): K43.9 - Ventral hernia without obstruction or gangrene PLAN: Plan PLAN PT for gait stability OT for ADL's ST for evaluation for swallowing -suspect recurrent laryngeal nerve dysfunction Analgesics as needed-scheduled Tylenol 1 g p.o. every 8 hours and continue oxycodone every 4 hours as needed for the pain 4-10 Bowel protocol Fall precautions Assess for Anxiety/Depression GI prophylaxis -continue Protonix DVT prophylaxis with -will discuss with surgery. For now we will use SCDs and YESSICA rogel Follow up with [] following DC from [facility] AM lab including CMP, CBC, Mag and Phos TSH, baseline cortisol, PSA.....consider a Cortrosyn stim test in the AM. Normal saline 1 L over 1 hour and then decrease the rate to 100 cc/h Hold Flomax for now due to severe orthostasis Recheck orthostatics in the a.m. Discontinue Ativan and meclizine-he does not have vertigo he has near syncope/lightheadedness secondary to orthostasis Discontinue meloxicam due to interference with fusion. consider weaning Robaxin in the next few days. Discuss pharmacologic DVT prophylaxis with Dr. Diego. Obtain Dr. Menjivar's records. Pt is depressed and Dr. Menjivar had started a anti- depressant but, it gave him diarrhea and it was stopped. Would like to know what drug he was given for depression. I believe the drug was Prozac.....this was documented in a ED visit 09/15/20. Pt attributes diarrhea to Prozac but, he has been diagnosed with IBS D in the past and he also has constipation at times........Isuspect the Prozac has nothing to do with diarrhea. BP sitting up with legs dependent was recently 79/48 and he did get Midodrine this AM. Will continue Midodrine and hydrate aggressively. 85 Minutes spent reviewing past diagnostic tests, lab results, vital sign trends, medical history, medications, all additional paperwork sent by the previous hospital, and ordering medications, examining the the patient and completing documentation. Charges/Coding Visit Charges Inpatient E&M: 18248 Init Hosp L3 04/28/24 8153 Cosigner Signature (if applicable): CC: Dr. Kwabena Menjivar MD; Dr. Corazon Wright DO~ Signed ADDENDUM by Dr. Corazon Wright DO on 04/28/24 at 1524 Addendum PSA is normal at 0.33. TSH is normal at 1.03. The a.m. cortisol is low at 3.92 and this is in a patient who recently had surgery and is in pain so I would expect it to be high. Phos is low so will supplement. Recheck lab on Wednesday. Cortrosyn stimulation test in the AM. 04/28/24 1524 Cosigner Signature (if applicable): cc: Dr. Kwabena Menjivar MD; Dr. Corazon Wright, DO ~* Signed [facility]03-21-2025 [facility] [place] Progress note Author Awa Chadwick [facility] Note Date/Time April 27, 2024 7:4 5pm [facility] Medical Records Department [address] [place] [address] Progress Note - Orthopedic 04/27/241938 MR#: [id number] Acct: [id number] Name: YAS ROSA Rep #:[id number] : 1940 83 From: Awa CONTEH PCP: Dr. Kwabena Menjivar MD Status :ADM IN Location: [place] [address] Subjective Subjective Seen with Dr. Diego. Patient is post op day 1 C3-6 ACDF. He is doing well post operatively with pain well managed. Patient had not yet been up with therapy upon my visit. Continues to have left sided weakness. Nursing did change dressing x1. Does mention that he continues to have dysphagia issues. Objective Data Objective Data Vital Signs: Vital Signs Temp Pulse Resp BP Pulse Ox O2 Del Method 97.8 F 62 16 138/64 H 94 Room Air 04/27/24 15:31 04/27/24 15:31 04/27/24 15:31 04/27/24 15:31 04/27/24 15:31 04/27/24 16:48 Oxygen Delivery Method Room Air Weight: 170 lb 1.6 oz Body Mass Index (BMI) 25.7 Intake & Output: Intake and Output for Last 24 Hours 04/25/24 04/26/24 04/27/24 23:59 23:59 23:59 Intake Total 100 / 100 Balance 100 / 100 Physical Exam Narrative Dressing showed mild amount of drainage. Collar removed for exam and drain was removed. New dressing and tegaderm was applied. Cervical collar was reapplied. 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 Right upper extremity shows 5 x 5 strength except forgrade 4 shoulder abduction. Const alert, oriented x3 and no apparent distress Assessment & Plan Assessment/Plan (1) Status post cervical spinal fusion: PLAN: Plan POD 1 C3-6 ACDF. Xrays done today show hardware and bone graft in good position. Patient to be transferred to TCU for therapy. If still in TCU at 2 weeks post op, follow up can be done there. If patient is home, he can follow up in the clinic. Patient is in agreement. 04/27/241944 <Electronically signed by Awa CONTEH> Cosigner Signature (if applicable): CC: ~ Signed [facility] Work Phone: 1([phone]) 904-523403-20-2025 Progress note [facility] Medical Records Department [address] [place] [address] Progress Note - Orthopedic 04/27/241938 MR#: [id number] Acct: [id number] Name: YAS ROSA Rep #:[id number] : 1940 83 From: Awa CONTEH PCP: Dr. Kwabena Menjivar MD Status :ADM IN Location: [place] [address] Subjective Subjective Seen with Dr. Diego. Patient is post op day 1 C3-6 ACDF. He is doing well post operatively with pain well managed. Patient had not yet been up with therapy upon my visit. Continues to have left sided weakness. Nursing did change dressing x1. Does mention that he continues to have dysphagia issues. Objective Data Objective Data Vital Signs: Vital Signs Temp Pulse Resp BP Pulse Ox O2 Del Method 97.8 F 62 16 138/64 H 94 Room Air 04/27/24 15:31 04/27/24 15:31 04/27/24 15:31 04/27/24 15:31 04/27/24 15:04/27/24 16:48 Oxygen Delivery Method Room Air Weight: 170 lb 1.6 oz Body Mass Index (BMI) 25.7 Intake & Output: Intake and Output for Last 24 Hours 04/25/24 04/26/24 04/27/24 23:59 23:59 23:59 Intake Total 100 / 100 Balance 100 / 100 Physical Exam Narrative Dressing showed mild amount of drainage. Collar removed for exam and drain was removed. New dressing and tegaderm was applied. Cervical collar was reapplied. 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 Right upper extremity shows 5 x 5 strength except forgrade 4shoulder abduction. Const alert, oriented x3 and no apparent distress Assessment & Plan Assessment/Plan (1) Status post cervical spinal fusion: PLAN: Plan POD 1 C3-6 ACDF. Xrays done today show hardware and bone graft in good position. Patient to be transferred to TCU for therapy. If still in TCU at 2 weeks post op, follow up can be done there. If patient is home, he can follow up in the clinic. Patient is in agreement. 04/27/241944 Cosigner Signature (if applicable): CC: ~ Signed [facility]03-20-2025 Discharge summary [facility] Medical Records Department [address] [place] [address] Discharge Summary 04/27/24 1353 MR#: [id number] Acct: [id number] Name: YAS ROSA Rep #:[id number] : 1940 83 From: Harish Schneider PCP: Dr. Kwabena Menjivar MD Status :ADM IN Location: [place] [id number] 1 Providers Date of Admission: 04/20/24 Date of Discharge: 04/27/24 Primary Care Physician: Dr. Kwabena Menjivar MD Consultations 04/19/24 15:02 Consult: Plastic Surgery Routine Consulting Provider: Yas Godinez Reason for Consult: left maxilofacial fracture. EMERGENT Consult: No MD Notified: Yes Date Notified: 04/19/24 Time Notified: 13:21 Method of Notification: ED Physician Initiated 04/20/24 07:57 Consult: Orthopedics Routine Consulting Provider: Ciro Diego Reason for Consult: spinal stenosis with left arm weakness. EMERGENT Consult: No MD Notified: Yes Date Notified: 04/20/24 Time Notified: 09:41 Method of Notification: Text Reason For Visit: SYNCOPE Diagnosis Discharge Diagnosis (1) Syncope: Status: Acute Code(s): R55 - Syncope and collapse Plan: Patient admitted with syncopal episode and fall. Has bruise around left maxillary region and aroundorbital region. Has chronic weakness of bilateral upper extremity worse than left upper extremity. Complain of numbness of both lower extremity from thigh downwards left worse than right. The may have been vasovagal due to the vertigo related with the dizziness. Patient at actually moreof a near syncopal episode where he just felt so dizzy hit his head. Patient has been dizzy for months. Pt was having milder symptoms, but worsened after he fell and hit his head. I suspect he made it worse with the head injury. Suspect BPPV. Dizziness much improved. Schedule meclizine for now. And as needed diazepam. 04/24 patient was dizzy and PT could not move him. Orthostatic blood pressure ordered. Discussed with the orthopedic surgeon. 04/25: Dizziness has resolved but now it is chronic only on standing up. Orthostatic vitals as documented. IV fluid started. Plan for surgery tomorrow. N.p.o. past midnight. 04/27: Patient not having any dizziness. His blood pressure was low yesterday therefore lactated Ringer was given 1 L over 2 hours. (2) Maxillary fracture, left side, initial encounter for closed fracture: Status: Acute Code(s): S02.40DA - Maxillary fracture, left side, initial encounter for closed fracture Plan: Secondary to fall. Coservative mgmt. Dr. Godinez's input apprecriated. No blowing nose, nor sleeping on his left side. Dr. Godinez has no concerns about the patient going to surgery. Just no pressure on the left maxillary sinus. (3) Subconjunctival hemorrhage: Status: Acute Code(s): H11.30 - Conjunctival hemorrhage, unspecified eye Plan: 2/2 to fall. Visual andrews intact, PERRL, EOMI. No hyphema. Supportive mgmt at this time. No optho needed at this time. (4) Left arm weakness: Status: Acute Code(s): R29.898 - Other symptoms and signs involving the musculoskeletal system Plan: ongoing for years (unable to flex right shoulder, but this seems to be due to rotator cuff injury/tear). MRI brain showed no CVA. 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 Acquired mildto severe multilevel foraminal narrowing. 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 And within thebody is mentioned at C4-5 severe spinal stenosis with marked mass effect on the left cord. At C5-6 moderate spinal stenosis and severe right and moderate/severe left foraminal narrowing. C6-7 severe right and moderate left foraminal narrowing. Given the fact that this been ongoing for years is likely chronic. Will start steroids and consult spine surgery. DW Dr. Diego, tentative plan for patient to go to surgery on Wednesday. Patient nowin agreement. 04/24: Surgery for today is canceled because of his scheduling/anesthesiology staffing problem. Patient also complained of mild urine retention. Started on Flomax. Bladder scan. 04/25: Patient had C3-C6 anterior cervical discectomy and fusion with plate instrumentation. 04/27: Dressing was soaked with serosanguineous fluid was changed in the morning. Has [place] drain therefore expected drainage. H&H is stable, 13 g/38%. Discussed with Dr. Long. He is stable fordischarge. Advised soft minced foodfor the next 5 days. Discharge medication reconciliation done. Discharge follow-up instructions completed. Discharge process discussed with the patient and all questions wereanswered to patient's satisfaction. Follow with PCP in 1 to 2 weeks Total time spent, exact 35 minutes on discharge meds reconciliation, examination, coordination of care with nurses and ancillary staff, review of imaging and blood test and discussion with the patient on follow-up instructions. Plan VTE prophylaxis with SCDs Medications at Discharge Home Medications acetaminophen 325 mg tablet 650 mg (2 x 325 mg) PO Q6H PRN PRN Pain 1-10 Or Fever >100.7 #0 tabs03/20/25 benzocaine 15 mg-menthol 3.6 mg lozenges (Sore Throat (benzocaine with menthol))1 juliet mucous membrane Q2H PRN PRN SORE THROAT #0 ea 03/20/25 carboxymethylcellulose sodium 0.5 % eye drops (Refresh Tears) 2 drp EACH EYE Q1HPRN DRY EYES #0 mL 04/27/25 diazepam 2 mg tablet 2 mg PO 4X/DAY PRN PRN Vertigo #0 tabs 04/27/24 food supplemt, lactose-reduced 0.08 gram-1.5 kcal/mL oral liquid (Ensure Plus High Protein) 120 ml PO TIDCM #0 mL 04/27/24 meclizine 25 mg tablet 12.5 mg (1/2 x 25 mg) PO TID PRN dizziness #0 tabs 04/27/24 meloxicam 15 mg tablet 15 mg PO DAILY #0 tabs 04/27/24 methocarbamol 500 mg tablet 1,000 mg (2 x 500 mg) PO 4X/DAY #0 tabs 04/27/24 midodrine 5 mg tablet 10 mg (2 x 5 mg) PO TIDCM #0 tabs 04/27/24 oxycodone 5 mg tablet 2.5 - 5 mg (0.5 - 1 x 5 mg) PO Q4H PRN PRN Pain Score 4- 10#0 tabs 04/27/24 pantoprazole 20 mg tablet,delayed release 20 mg PO DAILY #30 tabs 04/27/24 sennosides 8.6 mg-docusate sodium 50 mg tablet (Stimulant Laxative Plus) 2 tab PO BID #0 tabs 04/27/24 tamsulosin 0.4 mg capsule 0.4 mg PO DAILY@1730 #0 caps 04/27/24 Physical Exam Narrative Seen and examined Dressing was soaked in the morning and was changed and dry when I saw the patient in afternoon. Blood pressure normal 134/72. Mild difficulty in swallowing therefore on soft bite-size food. Patient had IV dexamethasone preop and then 4 mg x 2 dosages no respiratory distress. Physical exam General: Alert, Oriented x3, Cooperative HEENT: Atraumatic, PERRLA, EOMI, Normocephalic Oral: Oral mucosa moist. Neck: Hard cervical collar around the neck Chest wall/Lungs: Air entry diminished in bilateral lung bases. No crepitation/rhonchi Cardiovascular: Regular rate, Regular Rhythm, Normal S1, Normal S2, No M/G/R Abdomen: Bowel Sounds Present, Soft, Non Tender, Non-Distended : No dysuria. No renal angle tenderness. No suprapubic tenderness. Extremities: No edema, Capillary Refill Less than 3 Seconds Skin: Lateral neck approach, surgical dressing surgical dressing was changed andis dry. Has Penrosedrain. Subcutaneous bruise/ecchymosis over left orbital and maxillary region Musculoskeletal: LUE, abduction limited to only 30 degree. RUE limited to 60 degree. Power at knee and hip joints 4+/5 Neurological: Cranial nerves II-XII grossly intact, DTR 2+/4. No acute focal neurological deficit. Psych/Mental Status: Normal Affect, Appropriate. Weight / BMI Weight Weight: 166 lb 10.711 oz Body Mass Index (BMI) 25.3 ABG / Lab / Microbiology Data 04/27/24 05:35 04/27/24 05:35 Laboratory: Laboratory Results - last 24 hr 04/26/24 19:43: Hgb 12.8 L, Hct 37.7 L 04/27/24 05:35: WBC 11.1 H, RBC 4.33 L, Hgb 13.0, Hct 37.9 L, MCV 87.5, MCH 30.0, MCHC 34.3, RDW Std Deviation 39.6, RDW Coeff of Delia 12.3, Plt Count 178, MPV 8.6, Immature Gran % (Auto) 0.900, Neut % (Auto) 78.8 H, Lymph % (Auto) 14.3L, [place] % (Auto) 5.8, Eos % (Auto) 0.0, Baso % (Auto) 0.2, Absolute Neuts (auto)8.8 H, Absolute Lymphs (auto) 1.59, Nucleated RBC % 0, Sodium 136, Potassium 4.6, Chloride 103, Carbon Dioxide 20.1 L, Anion Gap 12, BUN 19, Creatinine 0.91,Estim Creat Clear Calc 60.55, Est GFR (MDRD) Non-Af 84, BUN/Creatinine Ratio 21.3 H, Glucose 123 H, Calcium 8.2 Radiography Diagnostic Testing: Radiology Impression C-Arm Fluoroscopy 04/26/24 11:05 IMPRESSION: Intraoperative fluoroscopy performed for anterior cervical discectomy and fusionsurgery. 10 fluoroscopic images were also obtained. Reading Location: [address] Cervical Spine X-Ray 04/26/24 11:05 IMPRESSION: Intraoperative fluoroscopy performed for anterior cervical discectomy and fusionsurgery. 10 fluoroscopic images were also obtained. Reading Location: [id number] Cervical Spine X-Ray 04/27/24 07:00 IMPRESSION: Osteopenia. Interval placement of a metallic fixation plate at the anterior margin of C3-C6. Interval placement of interbody spacer devices at C3-4, C4-5, and C5-6. No acute bony abnormality of the cervical spine. Similar moderate/severe degenerative disc disease at C6-7. Reading Location: [facility] D/C Instructions Discharge Diet: Light diet - advance as tolerated (Soft, minced/bite sized for next 5 days) Weight Bearing Status: Weight bearing as tolerated Call your doctor if you observe: Fever of 101 or Higher, Coldness, Increased Pain, Numbness or Tingling, Change in Color, Inability to urinate, Inability to have a bowel movement, Shortness of breath, Dizziness, Fainting spells, Swellingin the ankles, Chest pain, Prolonged hiccupping, Increased palpitations (irregular heartbeat) and Calf discomfort DC O2, CPAP, BIPAP Needs Home O2 Discharge instructions: No When: IN 2 WEEKS Meaningful Use Info Meaningful Use Meaningful Use Diagnoses (Choose all that apply): None applicable Ischemic Stroke Statin Dosing Therapy Reference: STATIN DOSE THERAPY REFERENCE: * Patients > 75 years receive moderate or high dose statin therapy. * Patients 75 years or YOUNGER should receive HIGH intensity statin dose unless contraindicated. You will be required to document reason for non-treatment if statin daily dose does not meet guidelines. 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 Attending Provider: Harish Baxter Primary Care Provider: Kwabena Menjivar Consulting Providers: Ciro Diego; Yas Godinez; Keanu Alfred Discharge Orders/Prescriptions Prescriptions: New methocarbamol 500 mg Tablet 1,000 mg PO 4X/DAY Qty: 0 0RF acetaminophen 325 mg Tablet 650 mg PO Q6H PRN PRN (Reason: Pain 1-10 Or Fever >100.7) Qty: 0 0RF sennosides-docusate sodium [Stimulant Laxative Plus] 8.6-50 mg Tablet 2 tab PO BID Qty: 0 0RF midodrine 5 mg Tablet 10 mg PO TIDCM Qty: 0 0RF Rx Instructions: Hold for SBP less than 100 mmHg tamsulosin 0.4 mg Capsule 0.4 mg PO DAILY@1730 Qty: 0 0RF carboxymethylcellulose sodium [Refresh Tears] 0.5 % Drops 2 drp EACH EYE Q1H PRN (Reason: DRY EYES) Qty: 0 0RF meclizine 25 mg Tablet 12.5 mg PO TID PRN (Reason: dizziness) Qty: 0 0RF diazepam 2 mg Tablet 2 mg PO 4X/DAY PRN PRN (Reason: Vertigo) Qty: 0 0RF Rx Instructions: Hold for sedation/lethargy/hypotension, SBP less than 100 mmHg oxycodone 5 mg Tablet 2.5 - 5 mg PO Q4H PRN PRN (Reason: Pain Score 4-10) Qty: 0 0RF Rx Instructions: Oxycodone 2.5 mg for moderate pain and 5 mg for severe pain respectively. Sore Throat (benzocaine-menth) 15-3.6 mg Lozenge 1 juliet mucous membrane Q2H PRN PRN (Reason: SORE THROAT) Qty: 0 0RF Ensure Plus High Protein 0.08 gram-1.5 kcal/mL Liquid 120 ml PO TIDCM Qty: 0 0RF pantoprazole 20 mg tablet,delayed release (DR/EC) 20 mg PO DAILY Qty: 30 0RF meloxicam 15 mg Tablet 15 mg PO DAILY Qty: 0 0RF Rx Instructions: For 1 week Referrals / Follow Up: Ciro Diego MD [Med Staff - Active Staff] - Within 2 Weeks Kwabena Menjivar MD [Primary Care Provider] - Disposition Disposition (needs filled in before D/C Order can be placed): Home, Self Care Charges/Coding Visit Charges Inpatient E&M: 28002 Disch Hosp >30min 04/27/24 7734 Cosigner Signature (if applicable): CC: Dr. Kwabena Menjivar MD; Dr. Harish Baxter MD~ Signed [facility]03-20-2025 Discharge summary [facility] Medical Records Department [address] [place] [address] Instructions for Home/Discharge Instructions 04/27/24 1045 MR#: [id number] Acct: [id number] Name: YAS ROSA Rep #:[id number] : 1940 83 From: Harish Schneider PCP: Dr. Kwabena Menjivar MD Status :ADM IN Discharge Instructions Diet Discharge Diet: Light diet - advance as tolerated (Soft, minced/bite sized for next 5 days) DC O2, CPAP, BIPAP needs Home O2 Discharge instructions: No Dressing / Incision Discharge Activity: Return to Normal Activity Weight Bearing Status: Weight bearing as tolerated Dressing / Incision Call your doctor if you observe: Fever of 101 or Higher, Coldness, Increased Pain, Numbness or Tingling, Change in Color, Inability to urinate, Inability to have a bowel movement, Shortness of breath, Dizziness, Fainting spells, Swellingin the ankles, Chest pain, Prolonged hiccupping, Increased palpitations (irregular heartbeat) and Calf discomfort Follow Up Care When: IN 2 WEEKS Test Results: Test results from this visit will be discussed in further detail at your follow- up appointment, if applicable. 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 Attending Provider: Harish Baxter Primary Care Provider: Kwabena Menjivar Consulting Providers: Ciro Diego; Yas Godinez; Keanu Alfred Discharge Orders/Prescriptions Prescriptions: New methocarbamol 500 mg Tablet 1,000 mg PO 4X/DAY Qty: 0 0RF acetaminophen 325 mg Tablet 650 mg PO Q6H PRN PRN (Reason: Pain 1-10 Or Fever >100.7) Qty: 0 0RF sennosides-docusate sodium [Stimulant Laxative Plus] 8.6-50 mg Tablet 2 tab PO BID Qty: 0 0RF midodrine 5 mg Tablet 10 mg PO TIDCM Qty: 0 0RF Rx Instructions: Hold for SBP less than 100 mmHg tamsulosin 0.4 mg Capsule 0.4 mg PO DAILY@1730 Qty: 0 0RF carboxymethylcellulose sodium [Refresh Tears] 0.5 % Drops 2 drp EACH EYE Q1H PRN (Reason: DRY EYES) Qty: 0 0RF meclizine 25 mg Tablet 12.5 mg PO TID PRN (Reason: dizziness) Qty: 0 0RF diazepam 2 mg Tablet 2 mg PO 4X/DAY PRN PRN (Reason: Vertigo) Qty: 0 0RF Rx Instructions: Hold for sedation/lethargy/hypotension, SBP less than 100 mmHg oxycodone 5 mg Tablet 2.5 - 5 mg PO Q4H PRN PRN (Reason: Pain Score 4-10) Qty: 0 0RF Rx Instructions: Oxycodone 2.5 mg for moderate pain and 5 mg for severe pain respectively. Sore Throat (benzocaine-menth) 15-3.6 mg Lozenge 1 juliet mucous membrane Q2H PRN PRN (Reason: SORE THROAT) Qty: 0 0RF Ensure Plus High Protein 0.08 gram-1.5 kcal/mL Liquid 120 ml PO TIDCM Qty: 0 0RF pantoprazole 20 mg tablet,delayed release (DR/EC) 20 mg PO DAILY Qty: 30 0RF meloxicam 15 mg Tablet 15 mg PO DAILY Qty: 0 0RF Rx Instructions: For 1 week Referrals / Follow Up: Ciro Diego MD [Med Staff - Active Staff] - Within 2 Weeks Kwabena Menjivar MD [Primary Care Provider] - Disposition Disposition (needs filled in before D/C Order can be placed): Home, Self Care 04/27/24 1353Pjuvenal Baxter MD CC: Dr. Ciro Diego MD; Dr. Kwabena Menjivar MD; Dr. Keanu Alfred DO; Dr.Robert Gretchen MD ~ Signed [facility]03-20-2025 [facility] Discharge summary Author Harish Baxter [facility] Note Date/Time April 27, 2024 1:5 3pm [facility] Medical Records Department [address] [place] [address] Instructions for Home/Discharge Instructions 04/27/24 1045 MR#: [id number] Acct: [id number] Name: YAS ROSA Rep #:[id number] : 1940 83 From: Harish Schneider PCP: Dr. Kwabena Menjivar MD Status :ADM IN Discharge Instructions Diet Discharge Diet: Light diet - advance as tolerated (Soft, minced/bite sized for next 5 days) DC O2, CPAP, BIPAP needs Home O2 Discharge instructions: No Dressing / Incision Discharge Activity: Return to Normal Activity Weight Bearing Status: Weight bearing as tolerated Dressing / Incision Call your doctor if you observe: Fever of 101 or Higher, Coldness, Increased Pain, Numbness or Tingling, Change in Color, Inability to urinate, Inability to have a bowel movement, Shortness of breath, Dizziness, Fainting spells, Swellingin the ankles, Chest pain, Prolonged hiccupping, Increased palpitations (irregular heartbeat) and Calf discomfort Follow Up Care When: IN 2 WEEKS Test Results: Test results from this visit will be discussed in further detail at your follow- up appointment, if applicable. 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 Attending Provider: Harish Baxter Primary Care Provider: Kwabena Menjivar Consulting Providers: Ciro Diego; Yas Godinez; Keanu Alfred Discharge Orders/Prescriptions Prescriptions: New methocarbamol 500 mg Tablet 1,000 mg PO 4X/DAY Qty: 0 0RF acetaminophen 325 mg Tablet 650 mg PO Q6H PRN PRN (Reason: Pain 1-10 Or Fever >100.7) Qty: 0 0RF sennosides-docusate sodium [Stimulant Laxative Plus] 8.6-50 mg Tablet 2 tab PO BID Qty: 0 0RF midodrine 5 mg Tablet 10 mg PO TIDCM Qty: 0 0RF Rx Instructions: Hold for SBP less than 100 mmHg tamsulosin 0.4 mg Capsule 0.4 mg PO DAILY@1730 Qty: 0 0RF carboxymethylcellulose sodium [Refresh Tears] 0.5 % Drops 2 drp EACH EYE Q1H PRN (Reason: DRY EYES) Qty: 0 0RF meclizine 25 mg Tablet 12.5 mg PO TID PRN (Reason: dizziness) Qty: 0 0RF diazepam 2 mg Tablet 2 mg PO 4X/DAY PRN PRN (Reason: Vertigo) Qty: 0 0RF Rx Instructions: Hold for sedation/lethargy/hypotension, SBP less than 100 mmHg oxycodone 5 mg Tablet 2.5 - 5 mg PO Q4H PRN PRN (Reason: Pain Score 4-10) Qty: 0 0RF Rx Instructions: Oxycodone 2.5 mg for moderate pain and 5 mg for severe pain respectively. Sore Throat (benzocaine-menth) 15-3.6 mg Lozenge 1 juliet mucous membrane Q2H PRN PRN (Reason: SORE THROAT) Qty: 0 0RF Ensure Plus High Protein 0.08 gram-1.5 kcal/mL Liquid 120 ml PO TIDCM Qty: 0 0RF pantoprazole 20 mg tablet,delayed release (DR/EC) 20 mg PO DAILY Qty: 30 0RF meloxicam 15 mg Tablet 15 mg PO DAILY Qty: 0 0RF Rx Instructions: For 1 week Referrals / Follow Up: Ciro Diego MD [Med Staff - Active Staff] - Within 2 Weeks Kwabena Menjivar MD [Primary Care Provider] - Disposition Disposition (needs filled in before D/C Order can be placed): Home, Self Care 04/27/24 1353<Electronically signed by Harish Baxter MD>Harish Baxter MD CC: Dr. Ciro Diego MD; Dr. Kwabena Menjivar MD; Dr. Keanu Alfred DO; Dr.Robert Gretchen MD ~ Signed [facility] Work Phone: 1(457) 456-206603-20-2025 Radiology Diagnostic study note [facility] Imaging Services [address] [place], [place] [id number] Cerv Spine 2 or 3 Views MR#: [id number] Acct: [id number] Name: YAS ROSA Rep #: [id number] : 1940 M 83 From: Oren Narvaez DO PCP: Dr. Kwabena Menjivar MD Status: ADM IN Study:Cerv Spine 2 or 3 Views Date of Exam: 04/27/24 Exam# [id number] Ordering Dr: Cheikh Chadwick PROCEDURE: Cervical spine radiographs, two views 04/27/2024 REASON FOR EXAM: Status post cervical spine fusion TECHNIQUE: AP and lateral radiographs of the cervical spine were obtained. COMPARISON: 03/08/2024 FINDINGS: Two views of the cervical spine were obtained. The bones are osteopenic. Therehas been interval placement of a metallic fixation plate at the anterior margin of C3-C6. There are interbody spacer devices at C3-4, C4-5, and C5-6. No acute fracture or focal subluxation of the cervical spine. Serpiginous tubular probable drainagecatheter projects over the anterior left cervical soft tissues. There is similar moderate/severe degenerative disc disease at C6-7. Upper lungs are grossly clear. A metallic safety pin projects over the anterior cervical soft tissues. RAD/Cerv Spine 2 or 3 Views IMPRESSION: Osteopenia. Interval placement of a metallic fixation plate at the anterior margin of C3-C6. Interval placement of interbody spacer devices at C3-4, C4-5, and C5-6. No acute bony abnormality of the cervical spine. Similar moderate/severe degenerative disc disease at C6-7. Reading Location: [facility] CC: YADY Hyman; Dr. Kwabena Menjivar MD ~ Balance Wheel Motion Inspector: Signed [facility]03-19-2025 Progress note Author Harish Baxter [facility] Note Date/Time April 26, 2024 4:3 5pm [facility] Medical Records Department [address] [place] [address] Progress Note - Hospitalist 04/26/24 1525 MR#: [id number] Acct: [id number] Name: YAS ROSA Rep #:[id number] : 1940 83 From: Harish Schneider PCP: Dr. Kwabena Menjivar MD Status :ADM IN Location: [facility] [id number] Reason for Visit Reason for Visit: Diagnoses Disease of spinal cord, unspecified (04/20/24) Conjunctival hemorrhage, unspecified eye (04/20/24) Other symptoms and signs involving the musculoskeletal system (04/20/24) Syncope and collapse (04/20/24) Maxillary fracture, unspecified side, initial encounter for closed fracture (04/20/24) Maxillary fracture, left side, initial encounter for closed fracture (04/20/24) Objective Data Objective Data Vital Signs: Vital Signs Temp Pulse Resp BP Pulse Ox O2 Del Method O2 Flow Rate 97.7 F L 59 L 16 105/52 L 98 Nasal Cannula 2 04/26/24 14:22 04/26/24 15:15 04/26/24 15:15 04/26/24 15:15 04/26/24 15:15 04/26/24 15:15 04/26/24 15:15 Oxygen Flow Rate (L/min) 2 Oxygen Delivery Method Nasal Cannula Weight: 166 lb 10.711 oz Body Mass Index (BMI) 25.3 Intake & Output: Intake and Output for Last 24 Hours 04/24/24 04/25/24 04/26/24 23:59 23:59 23:59 Intake Total 1640 / 1640 2085 / 2085 2240 / 2240 Output Total 350 / 350 1580 / 1580 600 / 600 Balance 1290 / 1290 505 / 505 1640 / 1640 Lab / Micro Data 04/26/24 05:58 04/26/24 05:58 Labs: Laboratory Results - last 24 hr 04/26/24 05:58: WBC 8.7, RBC 4.46 L, Hgb 13.3, Hct 38.8 L, MCV 87.0, MCH 29.8, MCHC 34.3, RDW Std Deviation 39.8, RDW Coeff of Delia 12.5, Plt Count 168, MPV 8.5, Immature Gran % (Auto) 0.700, Neut % (Auto) 62.4, Lymph % (Auto) 26.4, [place]% (Auto) 8.2, Eos % (Auto) 2.2, Baso % (Auto) 0.1, Absolute Neuts (auto) 5.4, Absolute Lymphs (auto) 2.30, Nucleated RBC % 0, Sodium 136, Potassium 4.5, Chloride 107, Carbon Dioxide 22.8, Anion Gap 6, BUN 20 H, Creatinine 0.83, EstimCreat Clear Calc 66.39, Est GFR (MDRD) Non-Af 87, BUN/Creatinine Ratio 23.4 H, Glucose 91, Calcium 8.2 Radiography Diagnostic Testing: Radiology Impression C-Arm Fluoroscopy 04/26/24 11:05 IMPRESSION: Intraoperative fluoroscopy performed for anterior cervical discectomy and fusionsurgery. 10 fluoroscopic images were also obtained. Reading Location: [address] Cervical Spine X-Ray 04/26/24 11:05 IMPRESSION: Intraoperative fluoroscopy performed for anterior cervical discectomy and fusionsurgery. 10 fluoroscopic images were also obtained. Reading Location: [address] Physical Exam Narrative Seen and examined Patient went for surgery today. Seen after the surgery in afternoon. Vitals normal. No respiratory distress. Patient admitted with syncopal episode. Has bruise around left maxillary regionand around orbital region. Has chronic weakness of bilateral upper extremity worse than left upper extremity. Complain of numbness of both lower extremity from thigh downwards left worse than right. Physical exam General: Alert, Oriented x3, Cooperative HEENT: Atraumatic, PERRLA, EOMI, Normocephalic Oral: Oral mucosa Neck: Hard cervical collar around the neck Chest wall/Lungs: Air entry diminished in bilateral lung bases. No crepitation/rhonchi Cardiovascular: Regular rate, Regular Rhythm, Normal S1, Normal S2, No M/G/R Abdomen: Bowel Sounds Present, Soft, Non Tender, Non-Distended : No dysuria. No renal angle tenderness. No suprapubic tenderness. Extremities: No edema, Capillary Refill Less than 3 Seconds Skin: Lateral neck approach, surgical dressing soaked with serosanguineous fluid, expected from [place] drain. Subcutaneous bruise/ecchymosis over left orbital and maxillary region Musculoskeletal: LUE, abduction limited to only 30 degree. RUE limited to 60 degree. Power at knee and hip joints 4+/5 Neurological: Cranial nerves II-XII grossly intact, DTR 2+/4. No acute focal neurological deficit. Psych/Mental Status: Normal Affect, Appropriate. Assessment & Plan Assessment/Plan (1) Syncope: PLAN: The may have been vasovagal due to the vertigo related with the dizziness. Patient at actually more of a near syncopal episode where he just felt so dizzyhit his head. Patient has been dizzy for months. Pt was having milder symptoms, but worsened after he fell and hit his head. I suspect he made it worse with the head injury. Suspect BPPV. Dizziness much improved. [facility] And as needed diazepam. 04/24 patient was dizzy and PT could not move him. Orthostatic blood pressure ordered. Discussed with the orthopedic surgeon. 04/25: Dizziness has resolved but now it is chronic only on standing up. Orthostatic vitals as documented. IV fluid started. Plan for surgery tomorrow. N.p.o. past midnight. (2) Maxillary fracture, left side, initial encounter for closed fracture: PLAN: Secondary to fall. Coservative mgmt. Dr. Godinez's input apprecriated. No blowing nose, nor sleeping on his left side. Dr. Godinez has no concerns about the patient going to surgery. Just no pressure on the left maxillary sinus. (3) Subconjunctival hemorrhage: PLAN: / to fall. Visual andrews intact, PERRL, EOMI. No hyphema. Supportive mgmt at this time. No optho needed at this time. (4) Left arm weakness: PLAN: ongoing for years (unable to flex right shoulder, but this seems to be dueto rotator cuff injury/tear). MRI brain showed no CVA. 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 Acquired mild to severe multilevel foraminal narrowing. 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 And within thebody is mentioned at C4-5 severe spinal stenosis with marked mass effect on the left cord. At C5-6 moderate spinal stenosis and severe right and moderate/severe left foraminal narrowing. C6-7 severe right and moderate left foraminal narrowing. Given the fact that this been ongoing for years is likely chronic. Will start steroids and consult spine surgery. DW Dr. Diego, tentative plan for patient to go to surgery on Wednesday. Patient nowin agreement. 04/24: Surgery for today is canceled because of his scheduling/anesthesiology staffing problem. Patient also complained of mild urine retention. Started on Flomax. Bladder scan. 04/25: Patient had C3-C6 anterior cervical discectomy and fusion with plate instrumentation. PLAN: Plan VTE prophylaxis with SCDs Charges/Coding Visit Charges Inpatient E&M: 47406 Subs Hosp L2 04/26/24 3864 <Electronically signed by Harish Baxter MD> Cosigner Signature (if applicable): CC: ~ Signed [facility] Work Phone: 1(252) 366-633503-19-2025 Consult note Author Krish Guevara [facility] Note Date/Time April 26, 2024 3:5 1pm [facility] Medical Records Department [address] [place] [address] Anesthesia Postop Eval II 04/26/24 1549 MR#: [id number] Acct: [id number] Name: YAS ROSA Rep #:[id number] : 1940 83 From: Krish Guevara MD PCP: Dr. Kwabena Menjivar MD Status :ADM IN Y Race: C Location: [address] Anesthesia Postop Eval I Sum Postop Eval Completion status Anesthesia document: Postop Eval 1 completed: Yes Anesthesia Postop Eval I Summary Anesthesia Postop Eval I Summary: Anesthesia Postop Eval I: Assessment Summary Airway patent Yes 04/26/24 14:22 [email or web address] Spontaneous unlabored Yes 04/26/24 14:22 GENERATION [email or web address] respirations Mental status nausea No 04/26/24 14:22 [email or web address] [email or web address] Vomiting No 04/26/24 14:22 GENERATION [email or web address] Anesthesia Postop Eval I: Fluid Summary Crystalloid volume administer 1,400 04/26/24 14:22 GENERATION [email or web address] (ml) Colloids volume administered ( ml) Blood Product volume administered (ml) Total IV fluid infused 1,400 04/26/24 14:22 [email or web address] [email or web address] Anesthesia Postop Eval I: Summary Notes Anesthesia Complication No 04/26/24 14:22 [email or web address] Anesthesia Complication Comment: Post-operative progress note Anesthesia: Postop Eval II Evaluation Mental status: Awake and Calm Pain Level: 2 nausea: No Vomiting: No Complications Anesthesia Complication: No 04/26/24 1551 <Electronically signed by Krish parada MD> Date _ Krish Guevara MD Cosigner Signature: Date CC: ~ Signed [facility] Work Phone: 1(438) 689-114503-19-2025 Progress note [facility] Medical Records Department [address] [place] [address] Progress Note - Hospitalist 04/26/24 1525 MR#: [id number] Acct: [id number] Name: YAS ROSA Rep #:[id number] : 1940 83 From: Harish Schneider PCP: Dr. Kwabena Menjivar MD Status :ADM IN Location: [place] [address] Reason for Visit Reason for Visit: Diagnoses Disease of spinal cord, unspecified (04/20/24) Conjunctival hemorrhage, unspecified eye (04/20/24) Other symptoms and signs involving the musculoskeletal system (04/20/24) Syncope and collapse (04/20/24) Maxillary fracture, unspecified side, initial encounter for closed fracture (04/20/24) Maxillary fracture, left side, initial encounter for closed fracture (04/20/24) Objective Data Objective Data Vital Signs: Vital Signs Temp Pulse Resp BP Pulse Ox O2 Del Method O2 Flow Rate 97.7 F L 59 L 16 105/52 L 98 Nasal Cannula 2 04/26/24 14:22 04/26/24 15:15 04/26/24 15:15 04/26/24 15:15 04/26/24 15:15 04/26/24 15:15 04/26/24 15:15 Oxygen Flow Rate (L/min) 2 Oxygen Delivery Method Nasal Cannula Weight: 166 lb 10.711 oz Body Mass Index (BMI) 25.3 Intake & Output: Intake and Output for Last 24 Hours 04/24/24 04/25/24 04/26/24 23:59 23:59 23:59 Intake Total 1640 / 1640 2085 / 2085 2240 / 2240 Output Total 350 / 350 1580 / 1580 600 / 600 Balance 1290 / 1290 505 / 505 1640 / 1640 Lab / Micro Data 04/26/24 05:58 04/26/24 05:58 Labs: Laboratory Results - last 24 hr 04/26/24 05:58: WBC 8.7, RBC 4.46 L, Hgb 13.3, Hct 38.8 L, MCV 87.0, MCH 29.8, MCHC 34.3, RDW Std Deviation 39.8, RDW Coeff of Delia 12.5, Plt Count 168, MPV 8.5, Immature Gran % (Auto) 0.700, Neut % (Auto) 62.4, Lymph % (Auto) 26.4, [place]% (Auto) 8.2, Eos % (Auto) 2.2, Baso % (Auto) 0.1, Absolute Neuts (auto) 5.4, Absolute Lymphs (auto) 2.30, Nucleated RBC % 0, Sodium 136, Potassium 4.5, Chloride 107, Carbon Dioxide 22.8, Anion Gap 6, BUN 20 H, Creatinine 0.83, EstimCreat Clear Calc 66.39, Est GFR (MDRD) Non-Af 87, BUN/Creatinine Ratio 23.4 H, Glucose 91, Calcium 8.2 Radiography Diagnostic Testing: Radiology Impression C-Arm Fluoroscopy 04/26/24 11:05 IMPRESSION: Intraoperative fluoroscopy performed for anterior cervical discectomy and fusionsurgery. 10 fluoroscopic images were also obtained. Reading Location: [address] Cervical Spine X-Ray 04/26/24 11:05 IMPRESSION: Intraoperative fluoroscopy performed for anterior cervical discectomy and fusionsurgery. 10 fluoroscopic images were also obtained. Reading Location: [address] Physical Exam Narrative Seen and examined Patient went for surgery today. Seen after the surgery in afternoon. Vitals normal. No respiratory distress. Patient admitted with syncopal episode. Has bruise around left maxillary regionand around orbital region. Has chronic weakness of bilateral upper extremity worse than left upper extremity. Complain of numbness of both lower extremity from thigh downwards left worse than right. Physical exam General: Alert, Oriented x3, Cooperative HEENT: Atraumatic, PERRLA, EOMI, Normocephalic Oral: Oral mucosa Neck: Hard cervical collar around the neck Chest wall/Lungs: Air entry diminished in bilateral lung bases. No crepitation/rhonchi Cardiovascular: Regular rate, Regular Rhythm, Normal S1, Normal S2, No M/G/R Abdomen: Bowel Sounds Present, Soft, Non Tender, Non-Distended : No dysuria. No renal angle tenderness. No suprapubic tenderness. Extremities: No edema, Capillary Refill Less than 3 Seconds Skin: Lateral neck approach, surgical dressing soaked with serosanguineous fluid, expected from Lincroft drain. Subcutaneous bruise/ecchymosis over left orbital and maxillary region Musculoskeletal: LUE, abduction limited to only 30 degree. RUE limited to 60 degree. Power at knee and hip joints 4+/5 Neurological: Cranial nerves II-XII grossly intact, DTR 2+/4. No acute focal neurological deficit. Psych/Mental Status: Normal Affect, Appropriate. Assessment & Plan Assessment/Plan (1) Syncope: PLAN: The may have been vasovagal due to the vertigo related with the dizziness. Patient at actually more of a near syncopal episode where he just felt so dizzyhit his head. Patient has been dizzy for months. Pt was having milder symptoms, but worsened after he fell and hit his head. I suspect he made it worse with the head injury. Suspect BPPV. Dizziness much improved. Schedule meclizine for now. And as needed diazepam. 04/24 patient was dizzy and PT could not move him. Orthostatic blood pressure ordered. Discussed with the orthopedic surgeon. 04/25: Dizziness has resolved but now it is chronic only on standing up. Orthostatic vitals as documented. IV fluid started. Plan for surgery tomorrow. N.p.o. past midnight. (2) Maxillary fracture, left side, initial encounter for closed fracture: PLAN: Secondary to fall. Coservative mgmt. Dr. Godinez's input apprecriated. No blowing nose, nor sleeping on his left side. Dr. Godinez has no concerns about the patient going to surgery. Just no pressure on the left maxillary sinus. (3) Subconjunctival hemorrhage: PLAN: 2/2 to fall. Visual andrews intact, PERRL, EOMI. No hyphema. Supportive mgmt at this time. No optho needed at this time. (4) Left arm weakness: PLAN: ongoing for years (unable to flex right shoulder, but this seems to be dueto rotator cuff injury/tear). MRI brain showed no CVA. 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 Acquired mildto severe multilevel foraminal narrowing. 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 And within thebody is mentioned at C4-5 severe spinal stenosis with marked mass effect on the left cord. At C5-6 moderate spinal stenosis and severe right and moderate/severe left foraminal narrowing. C6-7 severe right and moderate left foraminal narrowing. Given the fact that this been ongoing for years is likely chronic. Will start steroids and consult spine surgery. DW Dr. Diego, tentative plan for patient to go to surgery on Wednesday. Patient nowin agreement. 04/24: Surgery for today is canceled because of his scheduling/anesthesiology staffing problem. Patient also complained of mild urine retention. Started on Flomax. Bladder scan. 04/25: Patient had C3-C6 anterior cervical discectomy and fusion with plate instrumentation. PLAN: Plan VTE prophylaxis with SCDs Charges/Coding Visit Charges Inpatient E&M: 05549 Subs Hosp L2 04/26/24 1635 Cosigner Signature (if applicable): CC: ~ Signed [facility]03-19-2025 Consult note Author Tl Daniel [facility] Note Date/Time April 26, 2024 2:2 2pm [facility] Medical Records Department [address] [place] [address] Anesthesia Postop Eval I 04/26/241421 MR#: [id number] Acct: [id number] Name: YAS ROSA Rep #:[id number] : 1940 83 From: Tl JHAVERI PCP: Dr. Kwabena Menjivar MD Status :ADM IN Y Race: C Location: [place] [address] Anesthesia: Postop Eval I Current Vital Signs Temperature: 97.7 F Pulse Rate: 66 Blood Pressure: 107/55 Respiratory Rate: 16 Pulse Ox: 94 Assessment Airway patent: Yes Spontaneous unlabored respirations: Yes nausea: No Vomiting: No Anesthesia Complication: No Fluid Hydration Crystalloid volume administer (ml): 1,400 Total IV fluid infused: 1,400 Progress Note Anesthesia document: Postop Eval 1 completed: Yes 04/26/241421 <Electronically signed by Tl Daniel GENERATION MANAGER> Date _ Tl Daniel GENERATION MANAGER Cosigner Signature: Date CC: ~ Signed [facility] Work Phone: 1(296) 391-457603-19-2025 Consult note [facility] Medical Records Department [address] [place] [address] Anesthesia Postop Eval II 04/26/24 1549 MR#: [id number] Acct: [id number] Name: YAS ROSA Rep #:[id number] : 1940 83 From: Krish Guevara MD PCP: Dr. Kwabena Menjivar MD Status :ADM IN Y Race: C Location: [address] Anesthesia Postop Eval I Sum Postop Eval Completion status Anesthesia document: Postop Eval 1 completed: Yes Anesthesia Postop Eval I Summary Anesthesia Postop Eval I Summary: Anesthesia Postop Eval I: Assessment Summary Airway patent Yes 04/26/24 14:22 GENERATION MANAGER.TNES Spontaneous unlabored Yes 04/26/24 14:22 GENERATION MANAGER.TNES respirations Mental status nausea No 04/26/24 14:22 GENERATION MANAGER.TNES Vomiting No 04/26/24 14:22 GENERATION MANAGER.TNES Anesthesia Postop Eval I: Fluid Summary Crystalloid volume administer 1,400 04/26/24 14:22 GENERATION MANAGER.TNES (ml) Colloids volume administered ( ml) Blood Product volume administered (ml) Total IV fluid infused 1,400 04/26/24 14:22 GENERATION MANAGER.TNES Anesthesia Postop Eval I: Summary Notes Anesthesia Complication No 04/26/24 14:22 GENERATION MANAGER.TNES Anesthesia Complication Comment: Post-operative progress note Anesthesia: Postop Eval II Evaluation Mental status: Awake and Calm Pain Level: 2 nausea: No Vomiting: No Complications Anesthesia Complication: No 04/26/24 1551 tal CABELLO> Date _ Krish Pritchard Signature: Date CC: ~ Signed [facility]03-19-2025 Procedure note [facility] Medical Records Department [address] [place] [address] Operative Report 04/26/24 1425 MR#: [id number] Acct: [id number] Name: YAS ROSA Rep #:[id number] : 1940 83 From: Ciro Diego MD PCP: Dr. 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, stenosis, cord compression withmyelopathy, cord signal changes Post-Operative Diagnosis: Same Surgery/Procedure Performed: C3-6 ACDF help desk internship: Yes Meat Stringer: Awa Chadwick Tasks completed by preschool assistant: Closing, Removing tissue, Implanting device, Hemostasis: Electrocautery and Retracting Type of Anesthesia: General RN Documented Start/Stop Times: Operation Date: 04/26/24 10:50 Case Time Into Pre-Op 04/26/24 09:44 Anesthesia Start 04/26/24 10:43 Into Room 04/26/24 10:43 Out of Pre-Op 04/26/24 10:45 Procedure Start 04/26/24 11:19 Procedure End 04/26/24 14:05 Anesthesia End 04/26/24 14:12 Out of Room 04/26/24 14:12 Procedure Start Time: 11:19 Procedure Stop Time: 14:05 Select all DRAINS/GRAFTS/IMPLANTS that apply: Drains Drain details: Lincroft drain , Graft Graft details: Structural allograft cortical cancellous strut, DBX and Implanted device Implanted device details: [employer] Elite plate instrumentation Estimated Blood Loss: 50 cc Specimen collected: No Description of surgery: Preoperative diagnosis: 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 Anesthesia: Gen. endotracheal Estimated blood loss: 50 mL Complications: None Instrumentation used: [employer] Elite plate, LASR corticocancellous block Indications: The patient is a pleasant 83-year-old gentleman who presented with severe weakness andleft worse than right upper extremity, frequent falls and balance issues. His last fall was in to have maxilla undisplaced fracture and patient was admitted. MRI showed C3-6 disc degeneration with stenosis with cordcompression with cord signal changes. C4-5 showed large left paracentral disc herniation. In order to halt the progression of myelopathy, the patient requested surgical treatment. All risks and benefits of the procedure were explained to the patient. The risks include but are not limited to infection, bleeding, injury to nerves and vessels, vertebral artery injury, spinal cord injury, paralysis, vocal cord paralysis, injury to esophagus, pseudoarthrosis, need for further procedures, adjacent segment degeneration. Procedure: The patient was identified in the preoperative suite using unique patient identifiers. Skin was marked consent was taken and all questions were answered. The patient was then brought back to the operative room and a timeout was performed. General endotracheal anesthesia was given. Intraoperative neuro monitoring leads were applied. The patient was carefully positioned supine on a regular OR table. A lateral view with a C-arm was done to identify the level andto define the incision. The anterior neck was then prepped and draped in the usual fashion. A final timeout was then performed. A transverse skin incision was taken to the left of midline. Subcutaneous tissue was then divided with Bovie. Platysma was identified and cut along the incision with scissors. The fascial interval between the sternocleidomastoid and the larynx was developed. Omohyoid was identified and retracted. The esophagus with the larynx was retracted medially to reach the prevertebral fascia. Marker x-ray was performedwith bent spinal needle and disc space and levels were confirmed. Longus coli muscle was elevated on both sides at and above and below C3-6 discs. Self-retaining retractors were then placed. A long handle knife was then used to perform annulotomyat C4-5. Disc fragments were removed with the pituitary. [place] pins were placed in C4 and C5 for disc distraction. Curettes and bur wasutilized to remove cartilage from the endplates. Discectomy wasperformed laterally up to the uncovertebral joints. Posterior osteophytes were thinned down with the bur and adequate decompression in the central and foraminal areas were performed and PLL was thinned out and resected. Extruded disc fragments were removed and the left paracentral region and spinalcord was exposed and completely decompressed. Nerve hook was utilized to tease out all the extruded fragments above and below the disc. Once the disc space was prepared, trials of various sizes were utilized. Thorough irrigation was given. 7 mm LASR cortical cancellous allograft bone large footprint was then fashioned in such a way that concavities were burred out inferiorly and superiorly and half cc of DBX (demineralized bone matrix) wassqueezed into the cancellous portion. The graft was then inserted into the C4-5 disc space. The retractors were then repositioned and the procedure was repeated for C3-4 and C5-6 discs with complete discectomy. Graft sizes were 6 mm at with large footprint at C3-4 and C5-6. The grafts were found to be in good apposition with good pullout strength. A 60 mm Medtronic [employer] Elite plate wascontoured for larger lordosis due to the patient's anatomy, and then fixed to C3-C6 with 17 mm screws. A lateral x-ray was then taken to check the length of the screws. Both AP and lateral x-rays showed good positioning of plate and screws. The locking mechanism over the screw heads was then turned. Thorough irrigation was again given. Hemostasis was achieved. A Lincroft drain was then inserted. Closure was done with 3-0 Vicrylfor the platysma and subcutaneous tissue layers and 4-0 Monocryl for the skin. Closure was done around the drain. Steri-Strips were applied and dressing was done with 4 x 4 gauze and Tegaderm. A cervical collar was then applied. The patient was then woken up from anesthesia extubated and taken to PACU in stable condition. From here, the patient will be transitioned to the floor. Intraoperative neuro monitoring was performed throughout this procedure. Motor evoked potentials were run periodically. All potentials remained at baseline throughout the procedure. I was present forthe entire surgery and performed the surgery myself. Electric Power Line Repairer Awa Chadwick PA-C. My physician nurseryman assistant was a vital part of this case. They were important in appropriate retraction during the case, and protection of soft tissues during the procedure.Their intimate knowledge of thecase and my steps aided in safe and expedient completion of the procedure as well as appropriate position of the patient during the surgery. They were also vital in assisting with closure under my direct supervision. Surgical Findings: See operative note Complications Complications: No 04/26/24 1433 Cosigner Signature (if applicable): CC: Dr. Ciro Diego MD; Dr. Kwabena Menjivar MD; Dr. Keanu Alfred DO; Dr.Robert Gretchen MD~ Signed [facility]03-19-2025 Consult note [facility] Medical Records Department [address] [place] [address] Anesthesia Postop Eval I 04/26/241421 MR#: [id number] Acct: [id number] Name: YAS ROSA Rep #:[id number] : 1940 83 From: Tl JHAVERI PCP: Dr. Kwabena Menjivar MD Status :ADM IN Y Race: C Location: [place] [address] Anesthesia: Postop Eval I Current Vital Signs Temperature: 97.7 F Pulse Rate: 66 Blood Pressure: 107/55 Respiratory Rate: 16 Pulse Ox: 94 Assessment Airway patent: Yes Spontaneous unlabored respirations: Yes nausea: No Vomiting: No Anesthesia Complication: No Fluid Hydration Crystalloid volume administer (ml): 1,400 Total IV fluid infused: 1,400 Progress Note Anesthesia document: Postop Eval 1 completed: Yes 04/26/24 142 GENERATION MANAGER> Date _ Tl Pritchard Signature: Date CC: ~ Signed [facility]03-19-2025 Radiology Diagnostic study note [facility] Imaging Services [address] [place], [place] [address] Cerv Spine 2 or 3 Views MR#: [id number] Acct: [id number] Name: YAS ROSA Rep #: [id number] : 1940 M 83 From: Fito Maldonado MD PCP: Dr. Kwabena Menjivar MD Status: ADM IN Study:Cerv Spine 2 or 3 Views Date of Exam: 04/26/24 Exam# [id number] Ordering Dr: Kristine Diego MD PROCEDURE: CERV SPINE 2 OR 3 VIEWS; O.R. FLUORO FOR C-ARM 04/26/2024 REASON FOR EXAM: ANTERIOR DISCECTOMY FUSION C3-6 TECHNIQUE: Intraoperative fluoroscopy performed for anterior cervical discectomy and fusionsurgery. 10 fluoroscopic images were also obtained. COMPARISON: None. RAD/Cerv Spine 2 or 3 Views IMPRESSION: Intraoperative fluoroscopy performed for anterior cervical discectomy and fusionsurgery. 10 fluoroscopic images were also obtained. Reading Location: [id number] CC: Dr. Ciro Diego MD; Dr. Kwabena Menjivar MD ~ Balance Wheel Motion Inspector: Signed [facility]03-19-2025 Radiology Diagnostic study note [facility] Imaging Services [address] [facility] [place], [place] [id number] O.R. Fluoro for C-Arm MR#: [id number] Acct: [id number] Name: YAS ROSA Rep #: [id number] : 1940 M 83 From: Fito Maldonado MD PCP: Dr. Kwabena Menjivar MD Status: ADM IN Study:O.R. Fluoro for C-Arm Date of Exam: 04/26/24 Exam# [id number] Ordering Dr: Kristine Diego MD PROCEDURE: CERV SPINE 2 OR 3 VIEWS; O.R. FLUORO FOR C-ARM 04/26/2024 REASON FOR EXAM: ANTERIOR DISCECTOMY FUSION C3-6 TECHNIQUE: Intraoperative fluoroscopy performed for anterior cervical discectomy and fusionsurgery. 10 fluoroscopic images were also obtained. COMPARISON: None. RAD/O.R. Fluoro for C-Arm IMPRESSION: Intraoperative fluoroscopy performed for anterior cervical discectomy and fusionsurgery. 10 fluoroscopic images were also obtained. Reading Location: [address] CC: Dr. Ciro Diego MD; Dr. Kwabena Menjivar MD ~ Balance Wheel Motion Inspector: Signed [facility]03-19-2025 Consult note Author Tl [place] [facility] Note Date/Time April 26, 2024 10: 39am [facility] Medical Records Department [address] [place] [address] Pre-Anesthesia Evaluation 04/26/24 1033 MR#: [id number] Acct: [id number] Name: YAS ROSA Rep #:[id number] : 1940 83 From: Tl JHAVERI PCP: Dr. Kwabena Menjivar MD Status :ADM IN Y Race: C Location: [place] [address] ASA Classification* ASA Classification ASA Classification: 3 Assessment & Plan Anesthesia* Anesthesia Assessment Anesthesia Assessment: Discussed sedation and/or anesthesia options, risks, benefits, and alternatives with patient/parents/legal guardian/POA. Questions invited. The patient/parents/legal guardian/POA seems to understand and agrees to proceedwith anesthesia plan. Reviewed the physical assessment, medical history, allergy history and patient home medications list prior to surgery/procedure/anesthetic and documented any changes. Performed airway and anesthesia risk assessments. Anesthesia Type Anesthesia Type: General History Source History Obtained from:: Patient and Chart Anesthesia Focused Assessment* Temperature: 97.4 F Pulse Rate: 67 Blood Pressure: 124/74 Respiratory Rate: 16 Pulse Ox: 98 Oxygen Delivery Method: Room Air Airway Assessment Mouth opens: >3 cm Mallampati Score: II Teeth Condition: Intact and Dentures (Upper and Lower Partials) Neck Range of motion (ROM): Limited ROM Comment: Left Maxillary Fracture Focused Labs Anesthesia Preop lab: CBC WBC 8.7 K/mm3 (4.4-11.0) 04/26/24 05:58 04/26/24 RBC 4.46 M/mm3 (4.6-6.2) L 04/26/24 05:58 04/26/24 Hgb 13.3 g/dL (13.0-16.5) 04/26/24 05:58 04/26/24 Hct 38.8 % (40-54) L 04/26/24 05:58 04/26/24 Plt Count 168 K/mm3 (150-450) 04/26/24 05:58 04/26/24 CHEMISTRY Potassium 4.5 mmol/L (3.3-5.1) 04/26/24 05:58 04/26/24 Sodium 136 mmol/L (133-145) 04/26/24 05:58 04/26/24 BUN 20 mg/dL (4-19) H 04/26/24 05:58 04/26/24 Creatinine 0.83 mg/dL (0.70-1.20) 04/26/24 05:58 04/26/24 Glucose 91 mg/dL (70-99) 04/26/24 05:58 04/26/24 POC Glucose 143 mg/dL (74-106) H 04/19/24 10:57 04/19/24 TSH 1.22 uIU/mL (0.358-3.74) 10/22/22 11:16 COAG PT 13.5 SECONDS (11.7-14.9) 04/19/24 10:50 Pre-Assessment Diagnosis/Proposed Procedure Planned Operative Procedure(s): ACDF C3-6 Anesthesia History 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 When Was Last Pacemaker Check QUESTION #4 FULL TEXT: You/Your Family Experience fever (hyperthermia) with Anesthesia Last Oral Intake Last Oral intake: Last Oral Intake NPO since 00:00 04/26/24 08:40 Meds taken in AM with sips of Yes 04/26/24 08:40 water? Meds patient instructed to ativert at 0546 04/26/24 08:40 take am of surgery PONV PONV - facilities project manager: PONV - facilities project manager Female HX of Motion Sickness HX of N/V After Surgery Non-Smoker Duration of Surgery greater than 60 minutes Number of Risk Factors PONV Score Height & Weight Height & Weight: Anesthesia: Height & Weight Height 5 ft 8 in 04/26/24 08:40 Weight: 75.6 kg 04/26/24 08:40 Body Mass Index (BMI) 25.3 04/26/24 08:40 Respiratory Assessment Respiratory Assessment - facilities project manager: Respiratory Tract Infection Hx - facilities project manager Hx Respiratory Tract Infection No 04/25/24 21:52 STOP Sleep Apnea STOP Sleep Apnea - facilities project manager: STOP Sleep Apnea - facilities project manager Hx Hypertension No 04/20/24 12:54 Hx Sleep Apnea No 04/19/24 15:04 CPAP BIPAP Do you snore loudly (louder No 04/19/24 15:04 than talking or can be heard Do you often feel tired/ No 04/19/24 15:04 fatigued/ sleepy during daytime? Has anyone observed you stop No 04/19/24 15:04 breathing during sleep? STOP Results Negative 04/19/24 15:04 QUESTION #5 FULL TEXT : Do you snore loudly (louder than talking or can be heard through closed doors)? 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 Specify any problems Hx of Preganancy in last 3 N/A 04/19/24 15:04 Months Nurse Filling Out Transfusion AHAGGERTY 04/19/24 15:04 & Questions: Date: 04/19/24 04/19/24 15:04 Time: 16:35 04/19/24 15:04 Patient unable to answer at this time (ie. confused, unrespo /Reproduction History /Reproductive History - facilities project manager: /Reproductive Hx- facilities project manager Hx Now No 04/25/24 21:52 Gestational Age (in weeks): EDC: Hx Hx Para Hx Section SAB No 04/25/24 21:52 Active Medications Active Medications: Current Medications Generic Name Dose Route Start Last Admin Trade Name Freq PRN Reason Stop Dose Admin Acetaminophen 650 mg 04/19/24 15:02 04/23/24 21:22 Acetaminophen 325 Mg Tablet PO 650 mg Q6H PRN PRN Administration Pain 1-10 Or Fever >100.7 Artificial Tears 2 drp 04/25/24 07:13 04/25/24 21:42 Carboxymethylcellulose Sodium 15 Ml Ophth Drops EACH EYE 2 drp Q1H PRN Administration DRY EYES Diazepam 2 mg 04/22/24 13:22 04/23/24 15:58 Diazepam 2 Mg Tablet PO 2 mg 4X/DAY PRN PRN Administration VERTIGO Tranexamic Acid 1,000 mg/ 110 mls @ 660 mls/hr 04/26/24 10:30 Sodium Chloride IV 04/26/24 10:39 X1 ONE Tranexamic Acid 1,000 mg/ 110 mls @ 660 mls/hr 04/26/24 10:30 Sodium Chloride IV 04/26/24 10:39 X1 ONE Sodium Chloride 1,000 mls @ 15 mls/hr 04/26/24 10:05 04/26/24 10:03 IV 15 mls/hr .Q48H FLORINDA Administration Meclizine HCl 25 mg 04/22/24 14:00 04/26/24 05:46 Meclizine Hcl 25 Mg Tablet PO 25 mg TID FLORINDA Administration Nutritional Formula (Lactose Free) 120 ml 04/20/24 17:00 04/26/24 07:37 Ensure Plus High Protein 120 Ml Liquid PO Not Given TIDCM FLORINDA Ondansetron HCl 4 mg 04/19/24 15:02 04/21/24 15:02 Ondansetron 4 Mg/2 Ml Vial IV 4 mg Q8H PRN PRN Administration NAUSEA/VOMITING Oxycodone HCl 2.5 - 5 mg 04/19/24 15:02 Oxycodone 5 Mg Tablet PO Q4H PRN PRN Pain Score 4-10 Polyethylene Glycol 17 gm 04/25/24 10:00 04/26/24 08:56 Polyethylene Glycol 3350 17 Gm Packet PO Not Given DAILY FLORINDA Senna/Docusate Sodium 2 tablet 04/25/24 10:00 04/26/24 08:56 Senna/Docusate Sodium 1 Tablet PO Not Given BID FLORINDA Sodium Chloride 10 - 40 ml 04/19/24 15:06 04/26/24 08:39 0.9% Saline Lock 10 Ml Syringe IV 10 ml UD PRN Administration SALINE FLUSH Tamsulosin HCl 0.4 mg 04/24/24 14:15 04/25/24 16:39 Tamsulosin Hcl 0.4 Mg Capsule PO 0.4 mg DAILY@1730 FLORINDA Administration Throat Lozenges 1 lozenge 04/20/24 18:53 04/23/24 21:22 Benzocaine/Menthol 1 Lozenge MUCOUS MEM 1 lozenge Q2H PRN PRN Administration SORE THROAT PFSH Medical History Anxiety Irritable bowel syndrome with diarrhea Loss of hearing Wears glasses Wears dentures Alcohol use Arthritis Syncope History of IBS Heartburn Former smoker History of stress test Diarrhea Depression Home Medications ?Medication ?Instructions ?Recorded ?Last Taken ?Type NK 02/26/24 Unknown History Allergy/AdvReac Type Severity Reaction Status Date / Time No Known Allergies Allergy Verified 04/19/24 11:00 Surgical History Hx of colonoscopy History of tonsillectomy and adenoidectomy History of appendectomy Social History household members: none housing: apartment Smoking Status: Former smoker alcohol intake: current alcohol intake frequency: holidays/special occasions only substance use type: does not use Review of Systems (Anesthesia) ROS Narrative System reviewed and no additional complaints, except as documented. 04/26/24 1039 <Electronically signed by Tl Daniel CRNA> Date _ Tl Daniel CRNA Cosigner Signature: Date CC: ~ Signed [facility] Work Phone: 1(284) 729-482303-19-2025 Consult note Author Tl [place] [facility] Note Date/Time April 26, 2024 9:4 9am [facility] Medical Records Department [address] [place] [address] Anesthesia Postop Eval I 04/26/24 0949 MR#: [id number] Acct: [id number] Name: YAS ROSA Brigido Rep #:[id number] : 1940 83 From: Tl JHAVERI PCP: Dr. Kwabena Menjivar MD Status :ADM IN Y Race: C Location: [place] [address] Anesthesia: Postop Eval I Current Vital Signs Temperature: 97.4 F Pulse Rate: 67 Blood Pressure: 124/74 Respiratory Rate: 16 Pulse Ox: 98 Assessment Airway patent: Yes Spontaneous unlabored respirations: Yes nausea: No Vomiting: No Anesthesia Complication: No Fluid Hydration Crystalloid volume administer (ml): 1,500 Total IV fluid infused: 1,500 Progress Note Anesthesia document: Postop Eval 1 completed: Yes 04/26/24 0949 <Electronically signed by Tl María GENERATION MANAGER> Date _ Tl María GENERATION MANAGER Cosigner Signature: Date CC: ~ Signed [facility] Work Phone: 1(324) 688-834203-19-2025 Progress note Author Ciro Diego [facility] Note Date/Time April 26, 2024 9:4 6am [facility] Medical Records Department [address] [place] [address] Progress Note - Orthopedic 04/26/24 0945 MR#: [id number] Acct: [id number] Name: YAS ROSA Rep #:[id number] : 1940 83 From: Ciro Diego MD PCP: Dr. Kwabena Menjivar MD Status :ADM IN Location: [place] [address] Subjective Subjective Saw patient in preop. Reviewed history again and examined the patient again. Again reviewed imaging and discussed surgery. All questions were answered. Consent was signed. No new changes compared to yesterday's neuroexam. Patient is in agreement. Objective Data Objective Data Vital Signs: Vital Signs Temp Pulse Resp BP Pulse Ox O2 Del Method 98.0 F 80 18 157/89 H 98 Room Air 04/26/24 08:40 04/26/24 08:49 04/26/24 08:40 04/26/24 08:40 04/26/24 08:40 04/26/24 08:40 Oxygen Delivery Method Room Air Weight: 166 lb 10.711 oz Body Mass Index (BMI) 25.3 Intake & Output: Intake and Output for Last 24 Hours 04/24/24 04/25/24 04/26/24 23:59 23:59 23:59 Intake Total 1640 / 1640 2085 / 2085 1000 / 1000 Output Total 350 / 350 1580 / 1580 600 / 600 Balance 1290 / 1290 505 / 505 400 / 400 Lab / Micro Data 04/26/24 05:58 04/26/24 05:58 Labs: Laboratory Results - last 24 hr 04/26/24 05:58: WBC 8.7, RBC 4.46 L, Hgb 13.3, Hct 38.8 L, MCV 87.0, MCH 29.8, MCHC 34.3, RDW Std Deviation 39.8, RDW Coeff of Delia 12.5, Plt Count 168, MPV 8.5, Immature Gran % (Auto) 0.700, Neut % (Auto) 62.4, Lymph % (Auto) 26.4, [place]% (Auto) 8.2, Eos % (Auto) 2.2, Baso % (Auto) 0.1, Absolute Neuts (auto) 5.4, Absolute Lymphs (auto) 2.30, Nucleated RBC % 0, Sodium 136, Potassium 4.5, Chloride 107, Carbon Dioxide 22.8, Anion Gap 6, BUN 20 H, Creatinine 0.83, EstimCreat Clear Calc 66.39, Est GFR (MDRD) Non-Af 87, BUN/Creatinine Ratio 23.4 H, Glucose 91, Calcium 8.2 Charges/Coding Visit Charges Inpatient E&M: 02136 Subs Hosp L1 04/26/24 0946 <Electronically signed by Ciro Diego MD> Cosigner Signature (if applicable): CC: ~ Signed [facility] Work Phone: 1(440) 195-322603-19-2025 Consult note [facility] Medical Records Department [address] [place] [address] Pre-Anesthesia Evaluation 04/26/24 1033 MR#: [id number] Acct: [id number] Name: YAS ROSA Brigido Rep #:[id number] : 1940 83 From: Tl JHAVERI PCP: Dr. Kwabena Menjivar MD Status :ADM IN Y Race: C Location: [place] [address] ASA Classification* ASA Classification ASA Classification: 3 Assessment & Plan Anesthesia* Anesthesia Assessment Anesthesia Assessment: Discussed sedation and/or anesthesia options, risks, benefits, and alternatives with patient/parents/legal guardian/POA. Questions invited. The patient/parents/legal guardian/POA seems to understand and agrees to proceedwith anesthesia plan. Reviewed the physical assessment, medical history, allergy history and patient home medications list prior to surgery/procedure/anesthetic and documented any changes. Performed airway and anesthesia risk assessments. Anesthesia Type Anesthesia Type: General History Source History Obtained from:: Patient and Chart Anesthesia Focused Assessment* Temperature: 97.4 F Pulse Rate: 67 Blood Pressure: 124/74 Respiratory Rate: 16 Pulse Ox: 98 Oxygen Delivery Method: Room Air Airway Assessment Mouth opens: >3 cm Mallampati Score: II Teeth Condition: Intact and Dentures (Upper and Lower Partials) Neck Range of motion (ROM): Limited ROM Comment: Left Maxillary Fracture Focused Labs Anesthesia Preop lab: CBC WBC 8.7 K/mm3 (4.4-11.0) 04/26/24 05:58 04/26/24 RBC 4.46 M/mm3 (4.6-6.2) L 04/26/24 05:58 04/26/24 Hgb 13.3 g/dL (13.0-16.5) 04/26/24 05:58 04/26/24 Hct 38.8 % (40-54) L 04/26/24 05:58 04/26/24 Plt Count 168 K/mm3 (150-450) 04/26/24 05:58 04/26/24 CHEMISTRY Potassium 4.5 mmol/L (3.3-5.1) 04/26/24 05:58 04/26/24 Sodium 136 mmol/L (133-145) 04/26/24 05:58 04/26/24 BUN 20 mg/dL (4-19) H 04/26/24 05:58 04/26/24 Creatinine 0.83 mg/dL (0.70-1.20) 04/26/24 05:58 04/26/24 Glucose 91 mg/dL (70-99) 04/26/24 05:58 04/26/24 POC Glucose 143 mg/dL (74-106) H 04/19/24 10:57 04/19/24 TSH 1.22 uIU/mL (0.358-3.74) 10/22/22 11:16 COAG PT 13.5 SECONDS (11.7-14.9) 04/19/24 10:50 Pre-Assessment Diagnosis/Proposed Procedure Planned Operative Procedure(s): ACDF C3-6 Anesthesia History 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 When Was Last Pacemaker Check QUESTION #4 FULL TEXT: You/Your Family Experience fever (hyperthermia) with Anesthesia Last Oral Intake Last Oral intake: Last Oral Intake NPO since 00:00 04/26/24 08:40 Meds taken in AM with sips of Yes 04/26/24 08:40 water? Meds patient instructed to ativert at 0546 04/26/24 08:40 take am of surgery PONV PONV - facilities project manager: PONV - facilities project manager Female HX of Motion Sickness HX of N/V After Surgery Non-Smoker Duration of Surgery greater than 60 minutes Number of Risk Factors PONV Score Height & Weight Height & Weight: Anesthesia: Height & Weight Height 5 ft 8 in 04/26/24 08:40 Weight: 75.6 kg 04/26/24 08:40 Body Mass Index (BMI) 25.3 04/26/24 08:40 Respiratory Assessment Respiratory Assessment - facilities project manager: Respiratory Tract Infection Hx - facilities project manager Hx Respiratory Tract Infection No 04/25/24 21:52 STOP Sleep Apnea STOP Sleep Apnea - facilities project manager: STOP Sleep Apnea - facilities project manager Hx Hypertension No 04/20/24 12:54 Hx Sleep Apnea No 04/19/24 15:04 CPAP BIPAP Do you snore loudly (louder No 04/19/24 15:04 than talking or can be heard Do you often feel tired/ No 04/19/24 15:04 fatigued/ sleepy during daytime? Has anyone observed you stop No 04/19/24 15:04 breathing during sleep? STOP Results Negative 04/19/24 15:04 QUESTION #5 FULL TEXT : Do you snore loudly (louder than talking or can be heard through closeddoors)? 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 Specify any problems Hx of Preganancy in last 3 N/A 04/19/24 15:04 Months Nurse Filling Out Transfusion AHAGGERTY 04/19/24 15:04 & Questions: Date: 04/19/24 04/19/24 15:04 Time: 16:35 04/19/24 15:04 Patient unable to answer at this time (ie. confused, unrespo /Reproduction History /Reproductive History - facilities project manager: /Reproductive Hx- facilities project manager Hx Now No 04/25/24 21:52 Gestational Age (in weeks): EDC: Hx Hx Para Hx Section SAB No 04/25/24 21:52 Active Medications Active Medications: Current Medications Generic Name Dose Route Start Last Admin Trade Name Freq PRN Reason Stop Dose Admin Acetaminophen 650 mg 04/19/24 15:02 04/23/24 21:22 Acetaminophen 325 Mg Tablet PO 650 mg Q6H PRN PRN Administration Pain 1-10 Or Fever >100.7 Artificial Tears 2 drp 04/25/24 07:13 04/25/24 21:42 Carboxymethylcellulose Sodium 15 Ml Ophth Drops EACH EYE 2 drp Q1H PRN Administration DRY EYES Diazepam 2 mg 04/22/24 13:22 04/23/24 15:58 Diazepam 2 Mg Tablet PO 2 mg 4X/DAY PRN PRN Administration VERTIGO Tranexamic Acid 1,000 mg/ 110 mls @ 660 mls/hr 04/26/24 10:30 Sodium Chloride IV 04/26/24 10:39 X1 ONE Tranexamic Acid 1,000 mg/ 110 mls @ 660 mls/hr 04/26/24 10:30 Sodium Chloride IV 04/26/24 10:39 X1 ONE Sodium Chloride 1,000 mls @ 15 mls/hr 04/26/24 10:05 04/26/24 10:03 IV 15 mls/hr .Q48H FLORINDA Administration Meclizine HCl 25 mg 04/22/24 14:00 04/26/24 05:46 Meclizine Hcl 25 Mg Tablet PO 25 mg TID FLORINDA Administration Nutritional Formula (Lactose Free) 120 ml 04/20/24 17:00 04/26/24 07:37 Ensure Plus High Protein 120 Ml Liquid PO Not Given TIDCM FLORINDA Ondansetron HCl 4 mg 04/19/24 15:02 04/21/24 15:02 Ondansetron 4 Mg/2 Ml Vial IV 4 mg Q8H PRN PRN Administration NAUSEA/VOMITING Oxycodone HCl 2.5 - 5 mg 04/19/24 15:02 Oxycodone 5 Mg Tablet PO Q4H PRN PRN Pain Score 4-10 Polyethylene Glycol 17 gm 04/25/24 10:00 04/26/24 08:56 Polyethylene Glycol 3350 17 Gm Packet PO Not Given DAILY FLORINDA Senna/Docusate Sodium 2 tablet 04/25/24 10:00 04/26/24 08:56 Senna/Docusate Sodium 1 Tablet PO Not Given BID FLORINDA Sodium Chloride 10 - 40 ml 04/19/24 15:06 04/26/24 08:39 0.9% Saline Lock 10 Ml Syringe IV 10 ml UD PRN Administration SALINE FLUSH Tamsulosin HCl 0.4 mg 04/24/24 14:15 04/25/24 16:39 Tamsulosin Hcl 0.4 Mg Capsule PO 0.4 mg DAILY@1730 FLORINDA Administration Throat Lozenges 1 lozenge 04/20/24 18:53 04/23/24 21:22 Benzocaine/Menthol 1 Lozenge MUCOUS MEM 1 lozenge Q2H PRN PRN Administration SORE THROAT PFSH Medical History Anxiety Irritable bowel syndrome with diarrhea Loss of hearing Wears glasses Wears dentures Alcohol use Arthritis Syncope History of IBS Heartburn Former smoker History of stress test Diarrhea Depression Home Medications ?Medication ?Instructions ?Recorded ?Last Taken ?Type NK 02/26/24 Unknown History Allergy/AdvReac Type Severity Reaction Status Date / Time No Known Allergies Allergy Verified 04/19/24 11:00 Surgical History Hx of colonoscopy History of tonsillectomy and adenoidectomy History of appendectomy Social History household members: none housing: apartment Smoking Status: Former smoker alcohol intake: current alcohol intake frequency: holidays/special occasions only substance use type: does not use Review of Systems (Anesthesia) ROS Narrative System reviewed and no additional complaints, except as documented. 04/26/24 1039 GENERATION MANAGER> Date _ Tl Daniel GENERATION MANAGER Cosigner Signature: Date CC: ~ Signed [facility]03-19-2025 Consult note [facility] Medical Records Department [address] [place] [address] Anesthesia Postop Eval I 04/26/24 0949 MR#: [id number] Acct: [id number] Name: MOEYAS Brigido Rep #:[id number] : 1940 83 From: Tl JHAVERI PCP: Dr. Kwabena Menjivar MD Status :ADM IN Y Race: C Location: [address] Anesthesia: Postop Eval I Current Vital Signs Temperature: 97.4 F Pulse Rate: 67 Blood Pressure: 124/74 Respiratory Rate: 16 Pulse Ox: 98 Assessment Airway patent: Yes Spontaneous unlabored respirations: Yes nausea: No Vomiting: No Anesthesia Complication: No Fluid Hydration Crystalloid volume administer (ml): 1,500 Total IV fluid infused: 1,500 Progress Note Anesthesia document: Postop Eval 1 completed: Yes 04/26/24 0949 GENERATION MANAGER> Date _ Tl Danielsbitt GENERATION MANAGER Cosigner Signature: Date CC: ~ Signed [facility]03-19-2025 Progress note [facility] Medical Records Department [address] [place] [address] Progress Note - Orthopedic 04/26/2445 MR#: [id number] Acct: [id number] Name: YAS ROSA Rep #:[id number] : 1940 83 From: Ciro Diego MD PCP: Dr. Kwabena Menjivar MD Status :ADM IN Location: [place] [address] Subjective Subjective Saw patient in preop. Reviewed history again and examined the patient again. Again reviewed imagingand discussed surgery. All questions were answered. Consent was signed. No new changes compared to yesterday's neuroexam. Patient is in agreement. Objective Data Objective Data Vital Signs: Vital Signs Temp Pulse Resp BP Pulse Ox O2 Del Method 98.0 F 80 18 157/89 H 98 Room Air 04/26/24 08:40 04/26/24 08:49 04/26/24 08:40 04/26/24 08:40 04/26/24 08:40 04/26/24 08:40 Oxygen Delivery Method Room Air Weight: 166 lb 10.711 oz Body Mass Index (BMI) 25.3 Intake & Output: Intake and Output for Last 24 Hours 04/24/24 04/25/24 04/26/24 23:59 23:59 23:59 Intake Total 1640 / 1640 2085 / 2085 1000 / 1000 Output Total 350 / 350 1580 / 1580 600 / 600 Balance 1290 / 1290 505 / 505 400 / 400 Lab / Micro Data 04/26/24 05:58 04/26/24 05:58 Labs: Laboratory Results - last 24 hr 04/26/24 05:58: WBC 8.7, RBC 4.46 L, Hgb 13.3, Hct 38.8 L, MCV 87.0, MCH 29.8, MCHC 34.3, RDW Std Deviation 39.8, RDW Coeff of Delia 12.5, Plt Count 168, MPV 8.5, Immature Gran % (Auto) 0.700, Neut % (Auto) 62.4, Lymph % (Auto) 26.4, [place]% (Auto) 8.2, Eos % (Auto) 2.2, Baso % (Auto) 0.1, Absolute Neuts (auto) 5.4, Absolute Lymphs (auto) 2.30, Nucleated RBC % 0, Sodium 136, Potassium 4.5, Chloride 107, Carbon Dioxide 22.8, Anion Gap 6, BUN 20 H, Creatinine 0.83, EstimCreat Clear Calc 66.39, Est GFR (MDRD) Non-Af 87, BUN/Creatinine Ratio 23.4 H, Glucose 91, Calcium 8.2 Charges/Coding Visit Charges Inpatient E&M: 35525 Subs Hosp L1 04/26/24 0946 Cosigner Signature (if applicable): CC: ~ Signed [facility]03-18-2025 Progress note Author Ana Rosa Howard [facility] Note Date/Time April 25, 2024 9:1 7pm [facility] Medical Records Department [address] [place] [address] Progress Note - Surgery 04/25/24 1432 MR#: [id number] Acct: [id number] Name: YAS ROSA Rep #:[id number] : 1940 83 From: Ana Rosa Ruiz ll ART HISTORIAN ART HISTORIAN-C PCP: Dr. Kwabena Menjivar MD Status :[facility]M [facility] <Statement entered by Yas Godinez MD - 04/25/24 21:17> I have personally performed a face to face assessment of the patient and have reviewed the CHAD Note. Subjective Subjective Patient is doing well. He is sitting in bed. He denies complaints at this time. Objective Data Objective Data Vital Signs: Vital Signs Temp Pulse Resp BP Pulse Ox O2 Del Method 98.3 F 56 L 18 88/47 L 98 Room Air 04/25/24 09:30 04/25/24 12:32 04/25/24 09:30 04/25/24 12:32 04/25/24 09:30 04/25/24 09:30 Oxygen Delivery Method Room Air Weight: 157 lb 13.616 oz Body Mass Index (BMI) 24.0 Intake & Output: Intake and Output for Last 24 Hours 04/23/24 04/24/24 04/25/24 23:59 23:59 23:59 Intake Total 220 / 220 1640 / 1640 740 / 740 Output Total 1425 / 1425 350 / 350 880 / 880 Balance -1205 / -1205 1290 / 1290 -140 / -140 Lab / Micro Data Attestation: I reviewed the patient's lab results. 04/25/24 06:55 04/25/24 06:55 Labs: Laboratory Results - last 24 hr 04/25/24 06:55: WBC 9.9, RBC 4.51 L, Hgb 13.5, Hct 38.8 L, MCV 86.0, MCH 29.9, MCHC 34.8, RDW Std Deviation 39.1, RDW Coeff of Delia 12.5, Plt Count 186, MPV 8.5, Immature Gran % (Auto) 0.700, Neut % (Auto) 60.4, Lymph % (Auto) 30.0, [place]% (Auto) 7.5, Eos % (Auto) 1.3, Baso % (Auto) 0.1, Absolute Neuts (auto) 6.0, Absolute Lymphs (auto) 2.98, Nucleated RBC % 0, Sodium 138, Potassium 4.2, Chloride 103, Carbon Dioxide 24.3, Anion Gap 10, BUN 24 H, Creatinine 0.90, Estim Creat Clear Calc 61.22, Est GFR (MDRD) Non-Af 85, BUN/Creatinine Ratio 26.7 H, Glucose 90, Calcium 8.5 Physical Exam Narrative Left eye bruising is resolving. Patient is able to raise eyebrows, close eyes, smile, purse lips. His visual acuity is intact. EOM intact bilaterally. Const alert and oriented x3 General Appearance: cooperative Assessment & Plan Assessment/Plan (1) Maxillary sinus fracture: (2) Maxillary fracture, left side, initial encounter for closed fracture: PLAN: Plan He is scheduled for surgery with Dr. Diego tomorrow. He may have normal intubation, but no pressure with intubation. No pressure on left cheek at the face maxillary fracture site. Continue with no nose blowing. If he has nose bleeds, use Afrin nasal spray. Keep head of bed elevated 45 degrees or greater to help prevent swelling. Discussed plan of care with Dr. Godinez. 04/25/24 1453 <Electronically signed by Ana Rosa Howard NP ART HISTORIAN-C> Cosigner Signature (if applicable): 04/25/242116 <Electronically signed by Yas Godinez MD> CC: ~ Signed [facility] Work Phone: 1(400) 449-706903-18-2025 Progress note [facility] Medical Records Department [address] [place] [address] Progress Note - Surgery 04/25/24 1432 MR#: [id number] Acct: [id number] Name: YAS ROSA Rep #:[id number] : 1940 83 From: Ana Rosa mccall NP ART HISTORIAN-C PCP: Dr. Kwabena Menjivar MD Status :ADM IN Location: [place] [address] I have personally performed a face to face assessment of the patient and have reviewed the CHAD Note. Subjective Subjective Patient is doing well. He is sitting in bed. He denies complaints at this time. Objective Data Objective Data Vital Signs: Vital Signs Temp Pulse Resp BP Pulse Ox O2 Del Method 98.3 F 56 L 18 88/47 L 98 Room Air 04/25/24 09:30 04/25/24 12:32 04/25/24 09:30 04/25/24 12:32 04/25/24 09:30 04/25/24 09:30 Oxygen Delivery Method Room Air Weight: 157 lb 13.616 oz Body Mass Index (BMI) 24.0 Intake & Output: Intake and Output for Last 24 Hours 04/23/24 04/24/24 04/25/24 23:59 23:59 23:59 Intake Total 220 / 220 1640 / 1640 740 / 740 Output Total 1425 / 1425 350 / 350 880 / 880 Balance -1205 / -1205 1290 / 1290 -140 / -140 Lab / Micro Data Attestation: I reviewed the patient's lab results. 04/25/24 06:55 04/25/24 06:55 Labs: Laboratory Results - last 24 hr 04/25/24 06:55: WBC 9.9, RBC 4.51 L, Hgb 13.5, Hct 38.8 L, MCV 86.0, MCH 29.9, MCHC 34.8, RDW Std Deviation 39.1, RDW Coeff of Delia 12.5, Plt Count 186, MPV 8.5, Immature Gran % (Auto) 0.700, Neut % (Auto) 60.4, Lymph % (Auto) 30.0, [place]% (Auto) 7.5, Eos % (Auto) 1.3, Baso % (Auto) 0.1, Absolute Neuts (auto) 6.0, Absolute Lymphs (auto) 2.98, Nucleated RBC % 0, Sodium 138, Potassium 4.2, Chloride 103, Carbon Dioxide 24.3, Anion Gap 10, BUN 24 H, Creatinine 0.90, Estim Creat Clear Calc 61.22, Est GFR (MDRD) Non-Af 85, BUN/Creatinine Ratio 26.7 H, Glucose 90, Calcium 8.5 Physical Exam Narrative Left eye bruising is resolving. Patient is able to raise eyebrows, close eyes, smile, purse lips. His visual acuity is intact. EOM intact bilaterally. Const alert and oriented x3 General Appearance: cooperative Assessment & Plan Assessment/Plan (1) Maxillary sinus fracture: (2) Maxillary fracture, left side, initial encounter for closed fracture: PLAN: Plan He is scheduled for surgery with Dr. Diego tomorrow. He may have normal intubation, but no pressure with intubation. No pressure on left cheek at the face maxillary fracture site. Continue with no nose blowing. If he has nose bleeds, use Afrin nasal spray. Keep head of bed elevated 45 degrees or greater to help prevent swelling. Discussed plan of care with Dr. Godinez. 04/25/24 4441 Cosigner Signature (if applicable): 04/25/242116 CC: ~ Signed [facility]03-18-2025 Progress note Author Harish Baxter [facility] Note Date/Time April 25, 2024 2:4 7pm [facility] Medical Records Department [address] [place] [address] Progress Note - Hospitalist 04/25/24 1441 MR#: [id number] Acct: [id number] Name: YAS ROSA Rep #:[id number] : 1940 83 From: Harish Schneider PCP: Dr. Kwabena Menjivar MD Status :ADM IN Location: [place] [address] Reason for Visit Reason for Visit: Diagnoses Disease of spinal cord, unspecified (04/20/24) Conjunctival hemorrhage, unspecified eye (04/20/24) Other symptoms and signs involving the musculoskeletal system (04/20/24) Syncope and collapse (04/20/24) Maxillary fracture, left side, initial encounter for closed fracture (04/20/24) Objective Data Objective Data Vital Signs: Vital Signs Temp Pulse Resp BP Pulse Ox O2 Del Method 98.3 F 56 L 18 88/47 L 98 Room Air 04/25/24 09:30 04/25/24 12:32 04/25/24 09:30 04/25/24 12:32 04/25/24 09:30 04/25/24 09:30 Oxygen Delivery Method Room Air Weight: 157 lb 13.616 oz Body Mass Index (BMI) 24.0 Intake & Output: Intake and Output for Last 24 Hours 04/23/24 04/24/24 04/25/24 23:59 23:59 23:59 Intake Total 220 / 220 1640 / 1640 740 / 740 Output Total 1425 / 1425 350 / 350 880 / 880 Balance -1205 / -1205 1290 / 1290 -140 / -140 Lab / Micro Data 04/25/24 06:55 04/25/24 06:55 Labs: Laboratory Results - last 24 hr 04/25/24 06:55: WBC 9.9, RBC 4.51 L, Hgb 13.5, Hct 38.8 L, MCV 86.0, MCH 29.9, MCHC 34.8, RDW Std Deviation 39.1, RDW Coeff of Delia 12.5, Plt Count 186, MPV 8.5, Immature Gran % (Auto) 0.700, Neut % (Auto) 60.4, Lymph % (Auto) 30.0, [place]% (Auto) 7.5, Eos % (Auto) 1.3, Baso % (Auto) 0.1, Absolute Neuts (auto) 6.0, Absolute Lymphs (auto) 2.98, Nucleated RBC % 0, Sodium 138, Potassium 4.2, Chloride 103, Carbon Dioxide 24.3, Anion Gap 10, BUN 24 H, Creatinine 0.90, Estim Creat Clear Calc 61.22, Est GFR (MDRD) Non-Af 85, BUN/Creatinine Ratio 26.7 H, Glucose 90, Calcium 8.5 Physical Exam Narrative Seen and examined [facility] Ortho ess has resolved not is restricted valvulae and patient gets up. Patient was hypotensive yesterday therefore 1 L IV bolus was given and blood pressure improved. Systolic blood pressure was 139/90. In the morning today, ortho vitals shows 88/47, 56/min on lying and sitting 115/86, heart rate 73/min. Confirmed with the nursing staff and documented vitals are correct at the took it twice. Patient admitted with syncopal episode. Has bruise around left maxillary regionand around orbital region. Has chronic weakness of bilateral upper extremity worse than left upper extremity. Complain of numbness of both lower extremity from thigh downwards left worse than right. Physical exam General: Alert, Oriented x3, Cooperative HEENT: Atraumatic, PERRLA, EOMI, Normocephalic Oral: No Gingival or Mucosal Lesions/ Ulcerations Neck: Supple, No JVD, Negative Carotid Bruits Chest wall/Lungs: Air entry diminished in bilateral lung bases. No crepitation/rhonchi Cardiovascular: Regular rate, Regular Rhythm, Normal S1, Normal S2, No M/G/R Abdomen: Bowel Sounds Present, Soft, Non Tender, Non-Distended : No dysuria. No renal angle tenderness. No suprapubic tenderness. Extremities: No edema, Capillary Refill Less than 3 Seconds Skin: Subcutaneous bruise/ecchymosis over left orbital and maxillary region Musculoskeletal: LUE, abduction limited to only 30 degree. RUE limited to 60 degree. Power at knee and hip joints 4+/5 if patient needs airflow, BiPAP or high oxygen requirement, will need ID consult for baricitinib. Neurological: Cranial nerves II-XII grossly intact, DTR 2+/4. No acute focal neurological deficit. Psych/Mental Status: Normal Affect, Appropriate. Assessment & Plan Assessment/Plan (1) Syncope: PLAN: The may have been vasovagal due to the vertigo related with the dizziness. Patient at actually more of a near syncopal episode where he just felt so dizzyhit his head. Patient has been dizzy for months. Pt was having milder symptoms, but worsened after he fell and hit his head. I suspect he made it worse with the head injury. Suspect BPPV. Dizziness much improved. Schedule meclizine for now. And as needed diazepam. 04/24 patient was dizzy and PT could not move him. Orthostatic blood pressure ordered. Discussed with the orthopedic surgeon. 04/25: Dizziness has resolved but now it is chronic only on standing up. Orthostatic vitals as documented. IV fluid started. Plan for surgery tomorrow. N.p.o. past midnight. (2) Maxillary fracture, left side, initial encounter for closed fracture: PLAN: Secondary to fall. Coservative mgmt. Dr. Godinez's input apprecriated. No blowing nose, nor sleeping on his left side. Dr. Godinez has no concerns about the patient going to surgery. Just no pressure on the left maxillary sinus. (3) Subconjunctival hemorrhage: PLAN: 2/2 to fall. Visual andrews intact, PERRL, EOMI. No hyphema. Supportive mgmt at this time. No optho needed at this time. (4) Left arm weakness: PLAN: ongoing for years (unable to flex right shoulder, but this seems to be dueto rotator cuff injury/tear). MRI brain showed no CVA. 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 Acquired mild to severe multilevel foraminal narrowing. 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 And within thebody is mentioned at C4-5 severe spinal stenosis with marked mass effect on the left cord. At C5-6 moderate spinal stenosis and severe right and moderate/severe left foraminal narrowing. C6-7 severe right and moderate left foraminal narrowing. Given the fact that this been ongoing for years is likely chronic. Will start steroids and consult spine surgery. DW Dr. Diego, tentative plan for patient to go to surgery on Wednesday. Patient nowin agreement. 04/24: Surgery for today is canceled because of his scheduling/anesthesiology staffing problem. Patient also complained of mild urine retention. Started on Flomax. Bladder scan. PLAN: Plan VTE prophylaxis with SCDs Charges/Coding Visit Charges Inpatient E&M: 72769 Subs Hosp L2 04/25/24 1447 <Electronically signed by Harish Baxter MD> Cosigner Signature (if applicable): CC: ~ Signed [facility] Work Phone: [phone] Progress note [facility] Medical Records Department [address] [place] [address] Progress Note - Hospitalist 04/25/24 1441 MR#: [id number] Acct: [id number] Name: YAS ROSA Rep #:[id number] : 1940 83 From: Harish Schneider PCP: Dr. Kwabena Menjivar MD Status :ADM IN Location: [place] [address] Reason for Visit Reason for Visit: Diagnoses Disease of spinal cord, unspecified (04/20/24) Conjunctival hemorrhage, unspecified eye (04/20/24) Other symptoms and signs involving the musculoskeletal system (04/20/24) Syncope and collapse (04/20/24) Maxillary fracture, left side, initial encounter for closed fracture (04/20/24) Objective Data Objective Data Vital Signs: Vital Signs Temp Pulse Resp BP Pulse Ox O2 Del Method 98.3 F 56 L 18 88/47 L 98 Room Air 04/25/24 09:30 04/25/24 12:32 04/25/24 09:30 04/25/24 12:32 04/25/24 09:30 04/25/24 09:30 Oxygen Delivery Method Room Air Weight: 157 lb 13.616 oz Body Mass Index (BMI) 24.0 Intake & Output: Intake and Output for Last 24 Hours 04/23/24 04/24/24 04/25/24 23:59 23:59 23:59 Intake Total 220 / 220 1640 / 1640 740 / 740 Output Total 1425 / 1425 350 / 350 880 / 880 Balance -1205 / -1205 1290 / 1290 -140 / -140 Lab / Micro Data 04/25/24 06:55 04/25/24 06:55 Labs: Laboratory Results - last 24 hr 04/25/24 06:55: WBC 9.9, RBC 4.51 L, Hgb 13.5, Hct 38.8 L, MCV 86.0, MCH 29.9, MCHC 34.8, RDW Std Deviation 39.1, RDW Coeff of Delia 12.5, Plt Count 186, MPV 8.5, Immature Gran % (Auto) 0.700, Neut % (Auto) 60.4, Lymph % (Auto) 30.0, [place]% (Auto) 7.5, Eos % (Auto) 1.3, Baso % (Auto) 0.1, Absolute Neuts (auto) 6.0, Absolute Lymphs (auto) 2.98, Nucleated RBC % 0, Sodium 138, Potassium 4.2, Chloride 103, Carbon Dioxide 24.3, Anion Gap 10, BUN 24 H, Creatinine 0.90, Estim Creat Clear Calc 61.22, Est GFR (MDRD) Non-Af 85, BUN/Creatinine Ratio 26.7 H, Glucose 90, Calcium 8.5 Physical Exam Narrative Seen and examined [facility] Ortho ess has resolved not is restricted valvulae and patient gets up. Patient was hypotensive yesterday therefore 1 L IV bolus was given and blood pressure improved. Systolic blood pressure was 139/90. In the morning today, ortho vitals shows 88/47, 56/min on lying and sitting 115/86, heartrate 73/min. Confirmed with the nursing staff and documented vitals are correct at the took it twice. Patient admitted with syncopal episode. Has bruise around left maxillary regionand around orbital region. Has chronic weakness of bilateral upper extremity worse than left upper extremity. Complain of numbness of both lower extremity from thigh downwards left worse than right. Physical exam General: Alert, Oriented x3, Cooperative HEENT: Atraumatic, PERRLA, EOMI, Normocephalic Oral: No Gingival or Mucosal Lesions/ Ulcerations Neck: Supple, No JVD, Negative Carotid Bruits Chest wall/Lungs: Air entry diminished in bilateral lung bases. No crepitation/rhonchi Cardiovascular: Regular rate, Regular Rhythm, Normal S1, Normal S2, No M/G/R Abdomen: Bowel Sounds Present, Soft, Non Tender, Non-Distended : No dysuria. No renal angle tenderness. No suprapubic tenderness. Extremities: No edema, Capillary Refill Less than 3 Seconds Skin: Subcutaneous bruise/ecchymosis over left orbital and maxillary region Musculoskeletal: LUE, abduction limited to only 30 degree. RUE limited to 60 degree. Power at knee and hip joints 4+/5 if patient needs airflow, BiPAP or high oxygen requirement, will need ID consultfor baricitinib. Neurological: Cranial nerves II-XII grossly intact, DTR 2+/4. No acute focal neurological deficit. Psych/Mental Status: Normal Affect, Appropriate. Assessment & Plan Assessment/Plan (1) Syncope: PLAN: The may have been vasovagal due to the vertigo related with the dizziness. Patient at actually more of a near syncopal episode where he just felt so dizzyhit his head. Patient has been dizzy for months. Pt was having milder symptoms, but worsened after he fell and hit his head. I suspect he made it worse with the head injury. Suspect BPPV. Dizziness much improved. Schedule meclizine for now. And as needed diazepam. 04/24 patient was dizzy and PT could not move him. Orthostatic blood pressure ordered. Discussed with the orthopedic surgeon. 04/25: Dizziness has resolved but now it is chronic only on standing up. Orthostatic vitals as documented. IV fluid started. Plan for surgery tomorrow. N.p.o. past midnight. (2) Maxillary fracture, left side, initial encounter for closed fracture: PLAN: Secondary to fall. Coservative mgmt. Dr. Godinez's input apprecriated. No blowing nose, nor sleeping on his left side. Dr. Godinez has no concerns about the patient going to surgery. Just no pressure on the left maxillary sinus. (3) Subconjunctival hemorrhage: PLAN: 2/2 to fall. Visual andrews intact, PERRL, EOMI. No hyphema. Supportive mgmt at this time. No optho needed at this time. (4) Left arm weakness: PLAN: ongoing for years (unable to flex right shoulder, but this seems to be dueto rotator cuff injury/tear). MRI brain showed no CVA. 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 Acquired mildto severe multilevel foraminal narrowing. 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 And within thebody is mentioned at C4-5 severe spinal stenosis with marked mass effect on the left cord. At C5-6 moderate spinal stenosis and severe right and moderate/severe left foraminal narrowing. C6-7 severe right and moderate left foraminal narrowing. Given the fact that this been ongoing for years is likely chronic. Will start steroids and consult spine surgery. DW Dr. Diego, tentative plan for patient to go to surgery on Wednesday. Patient nowin agreement. 04/24: Surgery for today is canceled because of his scheduling/anesthesiology staffing problem. Patient also complained of mild urine retention. Started on Flomax. Bladder scan. PLAN: Plan VTE prophylaxis with SCDs Charges/Coding Visit Charges Inpatient E&M: 67294 Subs Hosp L2 04/25/24 6987 Cosigner Signature (if applicable): CC: ~ Signed [facility]03-18-2025 Progress note Author Ciro Diego [facility] Note Date/Time April 25, 2024 12: 04pm [facility] Medical Records Department [address] [place] [address] Progress Note - Orthopedic 04/25/24 1200 MR#: [id number] Acct: [id number] Name: YAS ROSA Rep #:[id number] : 1940 83 From: Ciro Diego MD PCP: Dr. Kwabena Menjivar MD Status :ADM IN Location: [place] [address] 1 Subjective Subjective Surgery canceled yesterday due to his OR equipment issues. Rescheduled for tomorrow 04/26/2024. Saw patient again in PCU 126. He has been on steroids and also has been having fluids for orthostatic hypotension. Reports subjective improvement since last seen by me likely from steroids and fluids. Continues to be severely weak in left upper extremity. Was able to sit at the edge with PT but unable to stand and ambulate since admission. 04/21/24: Patient has had at least 1 year history of progressive weakness and balance issues causing multiple falls. He has fallen at least 4 times over the last few months and the most recent fracture was 2 days ago which caused him to have maxilla fractures and facial injuries and got him admitted to the hospital. He is right- hand dominant. He has noticed significant weakness in the left upper extremity says that he just cannot move his elbow hands and fingers. He also has some shoulder weakness in the right upper extremity. He has not been able to stand or walk since admission. He denies any known history of stroke inthe past. He is not on any blood thinners. She is nondiabetic. He feels that he was already weak in the fall aggravated his weakness even more since that hisleft arm is nearly unable to move. He is concerned that his balance difficulties have significantly worsened since that he has had tremendous difficulty being independently ambulatory. Objective Data Objective Data Vital Signs: Vital Signs Temp Pulse Resp BP Pulse Ox O2 Del Method 98.3 F 63 18 146/72 H 98 Room Air 04/25/24 09:30 04/25/24 09:30 04/25/24 09:30 04/25/24 09:30 04/25/24 09:30 04/25/24 09:30 Oxygen Delivery Method Room Air Weight: 157 lb 13.616 oz Body Mass Index (BMI) 24.0 Intake & Output: Intake and Output for Last 24 Hours 04/23/24 04/24/24 04/25/24 23:59 23:59 23:59 Intake Total 220 / 220 1640 / 1640 Output Total 1425 / 1425 350 / 350 200 / 200 Balance -1205 / -1205 1290 / 1290 -200 / -200 Lab / Micro Data 04/25/24 06:55 04/25/24 06:55 Labs: Laboratory Results - last 24 hr 04/25/24 06:55: WBC 9.9, RBC 4.51 L, Hgb 13.5, Hct 38.8 L, MCV 86.0, MCH 29.9, MCHC 34.8, RDW Std Deviation 39.1, RDW Coeff of Delia 12.5, Plt Count 186, MPV 8.5, Immature Gran % (Auto) 0.700, Neut % (Auto) 60.4, Lymph % (Auto) 30.0, [place]% (Auto) 7.5, Eos % (Auto) 1.3, Baso % (Auto) 0.1, Absolute Neuts (auto) 6.0, Absolute Lymphs (auto) 2.98, Nucleated RBC % 0, Sodium 138, Potassium 4.2, Chloride 103, Carbon Dioxide 24.3, Anion Gap 10, BUN 24 H, Creatinine 0.90, Estim Creat Clear Calc 61.22, Est GFR (MDRD) Non-Af 85, BUN/Creatinine Ratio 26.7 H, Glucose 90, Calcium 8.5 Physical Exam Narrative Examination the neck shows no tenderness. 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 Right upper extremity shows 5 x 5 strength except for grade 4 shoulder abduction, likely rotator cuff injury. Mireille's positive bilaterally. Lower extremity shows 4+ power in all muscle groups both sides. There is hyperreflexia in both lower extremities. Gait could not be tested due to severe difficulty with balance. Assessment & Plan Assessment/Plan (1) Left arm weakness: (2) Cervical myelopathy: PLAN: Plan Again reviewed MRI of cervical spine done 2 days ago in the hospital at the timeof admission. Also reviewed x-rays of cervical spine done on 03/08/2024. These show reduced disc height at multiple levels especially C3-4. MRI shows C3-6 stenosis with severe cord compression and myelomalacia. C4-5 has fairly large left paracentral disc herniation causing severe critical left hemicord compression with cord signal changes. Severe foraminal stenosis noticed at these levels as well. Explained to him and his the imaging findings in detail. Patient has developed severe progressive cervical myelopathy with progressive balance difficulties and multiple falls. The recent fall has caused a maxillary fracture. With time patient has noticed worsening difficulty with balance such that he has had difficulty maintaining his ambulatory function. He has severe monoparesis in the left upper extremity with nearly grade 0 power in some of themuscle groups. He has hyperreflexia consistent with myelopathy. Explained to him the natural history of cervical myelopathy which is typically that of progressive worsening. Patient is already developed significant partial paralysis of left upper extremity. Explained to him that the treatment recommendation would be surgical decompression. Recommend C3- 6 ACDF in hopes ofhalting the progression of myelopathy. Also discussed possibility of posterior decompression alone versus posterior fixation done in addition to anterior surgery. Since majority of the compression is from the large disc herniation atC4-5 on the left, I recommend C3-6 ACDF. While this may increase his preoperative baseline dysphagia, this will in my opinion have the highest likelihood of achieving satisfactory neural decompression anteriorly. Discussedrisk benefits and alternatives. The risks include but are not limited to infection, bleeding, hematoma formation, need for further surgery, persistent dysphagia, dysphonia, recurrent laryngeal nerve injury, hoarseness, Toi syndrome, visceral injury, persistent pain, persistent weakness, inability to walk, spinal cord injury, nerve root injury, paralysis, DVT, pulm embolism, pseudoarthrosis, adjacent segment degeneration, cardiopulmonary event, stroke, . Patient understands and agrees to proceed with surgery. All questions answered. Discussed with Dr. Godinez in plastic surgery regarding the left maxilla fracture. Discussed with patient regarding additional pathology such as vertigo, dizziness, orthostatic hypotension, right shoulder rotator cuff pathology which would likely not improve most cervical spine surgery. This may need additional treatment. Charges/Coding Visit Charges Inpatient E&M: 38646 Subs Hosp L3 04/25/24 120 <Electronically signed by Ciro Diego MD> Cosigner Signature (if applicable): CC: ~ Signed [facility] Work Phone: [phone] Progress note [facility] Medical Records Department [address] [place] [address] Progress Note - Orthopedic 04/25/24 1200 MR#: [id number] Acct: [id number] Name: YAS ROSA Rep #:[id number] : 1940 83 From: Ciro Diego MD PCP: Dr. Kwabena Menjivar MD Status :ADM IN Location: [place] [address]- Subjective Subjective Surgery canceled yesterday due to his OR equipment issues. Rescheduled for tomorrow 04/26/2024. Saw patient again in PCU 126. He has been on steroids and also has been having fluids for orthostatic hypotension. Reports subjective improvement since last seen by me likely from steroids and fluids. Continues to be severely weak in left upper extremity. Was able to sit at the edge with PT but unable to stand and ambulate since admission. 04/21/24: Patient has had at least 1 year history of progressive weakness and balance issues causingmultiple falls. He has fallen at least 4 times over the last few months and the most recent fracture was 2 days ago which caused him to have maxilla fractures and facial injuries and got him admittedto the hospital. He is right-hand dominant. He has noticed significant weakness in the left upper extremity says that he just cannot move his elbow hands and fingers. He also has some shoulder weakness in the right upper extremity. He has not been able to stand or walk since admission. He denies any known history of stroke inthe past. He is not on any blood thinners. She is nondiabetic. He feels that he was already weak in the fall aggravated his weakness even more since that hisleft arm is nearly unable to move. He is concerned that his balance difficulties have significantly worsened since that he has had tremendous difficulty being independently ambulatory. Objective Data Objective Data Vital Signs: Vital Signs Temp Pulse Resp BP Pulse Ox O2 Del Method 98.3 F 63 18 146/72 H 98 Room Air 04/25/24 09:30 04/25/24 09:30 04/25/24 09:30 04/25/24 09:30 04/25/24 09:30 04/25/24 09:30 Oxygen Delivery Method Room Air Weight: 157 lb 13.616 oz Body Mass Index (BMI) 24.0 Intake & Output: Intake and Output for Last 24 Hours 04/23/24 04/24/24 04/25/24 23:59 23:59 23:59 Intake Total 220 / 220 1640 / 1640 Output Total 1425 / 1425 350 / 350 200 / 200 Balance -1205 / -1205 1290 / 1290 -200 / -200 Lab / Micro Data 04/25/24 06:55 04/25/24 06:55 Labs: Laboratory Results - last 24 hr 04/25/24 06:55: WBC 9.9, RBC 4.51 L, Hgb 13.5, Hct 38.8 L, MCV 86.0, MCH 29.9, MCHC 34.8, RDW Std Deviation 39.1, RDW Coeff of Delia 12.5, Plt Count 186, MPV 8.5, Immature Gran % (Auto) 0.700, Neut % (Auto) 60.4, Lymph % (Auto) 30.0, [place]% (Auto) 7.5, Eos % (Auto) 1.3, Baso % (Auto) 0.1, Absolute Neuts (auto) 6.0, Absolute Lymphs (auto) 2.98, Nucleated RBC % 0, Sodium 138, Potassium 4.2, Chloride 103, Carbon Dioxide 24.3, Anion Gap 10, BUN 24 H, Creatinine 0.90, Estim Creat Clear Calc 61.22, Est GFR (MDRD) Non-Af 85, BUN/Creatinine Ratio 26.7 H, Glucose 90, Calcium 8.5 Physical Exam Narrative Examination the neck shows no tenderness. 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 Right upper extremity shows 5 x 5 strength except for grade4 shoulder abduction, likely rotator cuff injury. Mireille's positive bilaterally. Lower extremity shows 4+ power in all muscle groups both sides. There is hyperreflexia in both lower extremities. Gait could not be tested due to severe difficulty with balance. Assessment & Plan Assessment/Plan (1) Left arm weakness: (2) Cervical myelopathy: PLAN: Plan Again reviewed MRI of cervical spine done 2 days ago in the hospital at the timeof admission. Also reviewed x-rays of cervical spine done on 03/08/2024. These show reduced disc height at multiple levels especially C3-4. MRI shows C3- 6 stenosis with severe cord compression and myelomalacia. C4-5 has fairly large left paracentral disc herniation causing severe critical left hemicord compression withcord signal changes. Severe foraminal stenosis noticed at these levels as well. Explained to him and his the imaging findings in detail. Patient has developed severe progressive cervical myelopathy with progressive balance difficulties and multiple falls. The recent fall has caused a maxillary fracture. With time patient has noticed worsening difficulty with balance such t hat he has had difficulty maintaining his ambulatory function. He has severe monoparesis in the left upper extremity with nearly grade 0 power in some of themuscle groups. He has hyperreflexia consistent with myelopathy. Explained to him the natural history of cervical myelopathy which is typicallythat of progressive worsening. Patient is already developed significant partial paralysis of left upper extremity. Explained to him that the treatment recommendation would be surgical decompression. Recommend C3-6 ACDF in hopes ofhalting the progression of myelopathy. Also discussed possibility of posterior decompression alone versus posterior fixation done in addition to anterior surgery. Since majority of the compression is from the large disc herniation atC4-5 on the left, I recommend C3-6 ACDF. While this may increase his preoperative baseline dysphagia, this will in my opinion have the highest likelihood of achieving satisfactory neural decompression anteriorly. Discussedrisk benefits and alternatives. The risks include but are not limited to infection, bleeding, hematoma formation, need for further surgery, persistent dysphagia, dysphonia, recurrent laryngeal nerve injury, hoarseness, Toi syndrome, visceral injury, persistent pain, persistent weakness, inability to walk, spinal cord injury, nerve root injury, paralysis, DVT, pulm embolism, pseudoarthrosis, adjacent segment degeneration, cardiopulmonary event, stroke, . Patient understands and agrees to proceed with surgery. All questions answered. Discussed with Dr. Godinez in plastic surgery regarding the left maxilla fracture. Discussed with patient regarding additional pathology such as vertigo, dizziness, orthostatic hypotension, right shoulder rotator cuff pathology which would likely not improve most cervical spine surgery. This may need additional treatment. Charges/Coding Visit Charges Inpatient E&M: 02795 Subs Hosp L3 04/25/24 1204 Cosigner Signature (if applicable): CC: ~ Signed [facility]03-17-2025 Progress note Author Harish Baxter [facility] Note Date/Time April 24, 2024 2:1 8pm [facility] Medical Records Department [address] [place] [address] Progress Note - Hospitalist 04/24/24 0804 MR#: [id number] Acct: [id number] Name: YAS ROSA Rep #:[id number] : 1940 83 From: Harish Schneider PCP: Dr. Kwabena Menjivar MD Status :ADM IN Location: [place] [address] Reason for Visit Reason for Visit: Diagnoses Disease of spinal cord, unspecified (04/20/24) Conjunctival hemorrhage, unspecified eye (04/20/24) Other symptoms and signs involving the musculoskeletal system (04/20/24) Syncope and collapse (04/20/24) Maxillary fracture, left side, initial encounter for closed fracture (04/20/24) Objective Data Objective Data Vital Signs: Vital Signs Temp Pulse Resp BP Pulse Ox O2 Del Method 97.7 F L 56 L 17 153/86 H 98 Room Air 04/24/24 02:21 04/24/24 02:21 04/24/24 02:21 04/24/24 02:21 04/24/24 02:21 04/24/24 02:21 Oxygen Delivery Method Room Air Weight: 157 lb 13.616 oz Body Mass Index (BMI) 24.0 Intake & Output: Intake and Output for Last 24 Hours 04/22/24 04/23/24 04/24/24 23:59 23:59 23:59 Intake Total 220 / 220 0 / 0 Output Total 1050 / 1100 1425 / 1425 100 / 100 Balance -1050 / -980 -1205 / -1205 -100 / -100 Lab / Micro Data 04/24/24 04:27 04/24/24 04:27 Labs: Laboratory Results - last 24 hr 04/24/24 04:27: WBC 10.4, RBC 4.56 L, Hgb 13.6, Hct 39.7 L, MCV 87.1, MCH 29.8, MCHC 34.3, RDW Std Deviation 39.4, RDW Coeff of Delia 12.3, Plt Count 199, MPV 8.5, Immature Gran % (Auto) 0.500, Neut % (Auto) 60.3, Lymph % (Auto) 30.5, [place]% (Auto) 7.9, Eos % (Auto) 0.7, Baso % (Auto) 0.1, Absolute Neuts (auto) 6.3, Absolute Lymphs (auto) 3.18, Nucleated RBC % 0, Sodium 138, Potassium 4.2, Chloride 103, Carbon Dioxide 26.7, Anion Gap 8, BUN 25 H, Creatinine 0.97, EstimCreat Clear Calc 56.80, Est GFR (MDRD) Non-Af 78, BUN/Creatinine Ratio 25.3 H, Glucose 94, Calcium 8.7 Physical Exam Narrative Seen and examined Patient admitted with syncopal episode. Has bruise around left maxillary regionand around orbital region. Has chronic weakness of bilateral upper extremity worse than left upper extremity. Complain of numbness of both lower extremity from thigh downwards left worse than right. Physical exam General: Alert, Oriented x3, Cooperative HEENT: Atraumatic, PERRLA, EOMI, Normocephalic Oral: No Gingival or Mucosal Lesions/ Ulcerations Neck: Supple, No JVD, Negative Carotid Bruits Chest wall/Lungs: Air entry diminished in bilateral lung bases. No crepitation/rhonchi Cardiovascular: Regular rate, Regular Rhythm, Normal S1, Normal S2, No M/G/R Abdomen: Bowel Sounds Present, Soft, Non Tender, Non-Distended : No dysuria. No renal angle tenderness. No suprapubic tenderness. Extremities: No edema, Capillary Refill Less than 3 Seconds Skin: Subcutaneous bruise/ecchymosis over left orbital and maxillary region Musculoskeletal: LUE, abduction limited to only 30 degree. RUE limited to 60 degree. Power at knee and hip joints 4+/5 if patient needs airflow, BiPAP or high oxygen requirement, will need ID consult for baricitinib. Neurological: Cranial nerves II-XII grossly intact, DTR 2+/4. No acute focal neurological deficit. Psych/Mental Status: Normal Affect, Appropriate. Assessment & Plan Assessment/Plan (1) Syncope: PLAN: The may have been vasovagal due to the vertigo related with the dizziness. Patient at actually more of a near syncopal episode where he just felt so dizzyhit his head. Patient has been dizzy for months. Pt was having milder symptoms, but worsened after he fell and hit his head. I suspect he made it worse with the head injury. Suspect BPPV. Dizziness much improved. Schedule meclizine for now. And as needed diazepam. 04/24 patient was dizzy and PT could not move him. Orthostatic blood pressure ordered. Discussed with the orthopedic surgeon. (2) Maxillary fracture, left side, initial encounter for closed fracture: PLAN: Secondary to fall. Coservative mgmt. Dr. Godinez's input apprecriated. No blowing nose, nor sleeping on his left side. Dr. Godinez has no concerns about the patient going to surgery. Just no pressure on the left maxillary sinus. (3) Subconjunctival hemorrhage: PLAN: 2/2 to fall. Visual andrews intact, PERRL, EOMI. No hyphema. Supportive mgmt at this time. No optho needed at this time. (4) Left arm weakness: PLAN: ongoing for years (unable to flex right shoulder, but this seems to be dueto rotator cuff injury/tear). MRI brain showed no CVA. 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 Acquired mild to severe multilevel foraminal narrowing. 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 And within thebody is mentioned at C4-5 severe spinal stenosis with marked mass effect on the left cord. At C5-6 moderate spinal stenosis and severe right and moderate/severe left foraminal narrowing. C6-7 severe right and moderate left foraminal narrowing. Given the fact that this been ongoing for years is likely chronic. Will start steroids and consult spine surgery. DW Dr. Diego, tentative plan for patient to go to surgery on Wednesday. Patient nowin agreement. 04/24: Surgery for today is canceled because of his scheduling/anesthesiology staffing problem. Patient also complained of mild urine retention. Started on Flomax. Bladder scan. PLAN: Plan VTE prophylaxis with SCDs Charges/Coding Visit Charges Inpatient E&M: 66162 Subs Hosp L2 04/24/24 5424 <Electronically signed by Harish Baxter MD> Cosigner Signature (if applicable): CC: ~ Signed [facility] Work Phone: [phone]) 669-521703-17-2025 Progress note [facility] Medical Records Department [address] [facility] [place] [address] Progress Note - Hospitalist 04/24/24 0804 MR#: [id number] Acct: [id number] Name: YAS ROSA Rep #:[id number] : 1940 83 From: Harish Schneider PCP: Dr. Kwabena Menjivar MD Status :ADM IN Location: [place] [address] Reason for Visit Reason for Visit: Diagnoses Disease of spinal cord, unspecified (04/20/24) Conjunctival hemorrhage, unspecified eye (04/20/24) Other symptoms and signs involving the musculoskeletal system (04/20/24) Syncope and collapse (04/20/24) Maxillary fracture, left side, initial encounter for closed fracture (04/20/24) Objective Data Objective Data Vital Signs: Vital Signs Temp Pulse Resp BP Pulse Ox O2 Del Method 97.7 F L 56 L 17 153/86 H 98 Room Air 04/24/24 02:21 04/24/24 02:21 04/24/24 02:21 04/24/24 02:21 04/24/24 02:21 04/24/24 02:21 Oxygen Delivery Method Room Air Weight: 157 lb 13.616 oz Body Mass Index (BMI) 24.0 Intake & Output: Intake and Output for Last 24 Hours 04/22/24 04/23/24 04/24/24 23:59 23:59 23:59 Intake Total 220 / 220 0 / 0 Output Total 1050 / 1100 1425 / 1425 100 / 100 Balance -1050 / -980 -1205 / -1205 -100 / -100 Lab / Micro Data 04/24/24 04:27 04/24/24 04:27 Labs: Laboratory Results - last 24 hr 04/24/24 04:27: WBC 10.4, RBC 4.56 L, Hgb 13.6, Hct 39.7 L, MCV 87.1, MCH 29.8, MCHC 34.3, RDW Std Deviation 39.4, RDW Coeff of Delia 12.3, Plt Count 199, MPV 8.5, Immature Gran % (Auto) 0.500, Neut % (Auto) 60.3, Lymph % (Auto) 30.5, [place]% (Auto) 7.9, Eos % (Auto) 0.7, Baso % (Auto) 0.1, Absolute Neuts (auto) 6.3, Absolute Lymphs (auto) 3.18, Nucleated RBC % 0, Sodium 138, Potassium 4.2, Chloride 103, Carbon Dioxide 26.7, Anion Gap 8, BUN 25 H, Creatinine 0.97, EstimCreat Clear Calc 56.80, Est GFR (MDRD) Non-Af 78, BUN/Creatinine Ratio 25.3 H, Glucose 94, Calcium 8.7 Physical Exam Narrative Seen and examined Patient admitted with syncopal episode. Has bruise around left maxillary regionand around orbital region. Has chronic weakness of bilateral upper extremity worse than left upper extremity. Complain of numbness of both lower extremity from thigh downwards left worse than right. Physical exam General: Alert, Oriented x3, Cooperative HEENT: Atraumatic, PERRLA, EOMI, Normocephalic Oral: No Gingival or Mucosal Lesions/ Ulcerations Neck: Supple, No JVD, Negative Carotid Bruits Chest wall/Lungs: Air entry diminished in bilateral lung bases. No crepitation/rhonchi Cardiovascular: Regular rate, Regular Rhythm, Normal S1, Normal S2, No M/G/R Abdomen: Bowel Sounds Present, Soft, Non Tender, Non-Distended : No dysuria. No renal angle tenderness. No suprapubic tenderness. Extremities: No edema, Capillary Refill Less than 3 Seconds Skin: Subcutaneous bruise/ecchymosis over left orbital and maxillary region Musculoskeletal: LUE, abduction limited to only 30 degree. RUE limited to 60 degree. Power at knee and hip joints 4+/5 if patient needs airflow, BiPAP or high oxygen requirement, will need ID consultfor baricitinib. Neurological: Cranial nerves II-XII grossly intact, DTR 2+/4. No acute focal neurological deficit. Psych/Mental Status: Normal Affect, Appropriate. Assessment & Plan Assessment/Plan (1) Syncope: PLAN: The may have been vasovagal due to the vertigo related with the dizziness. Patient at actually more of a near syncopal episode where he just felt so dizzyhit his head. Patient has been dizzy for months. Pt was having milder symptoms, but worsened after he fell and hit his head. I suspect he made it worse with the head injury. Suspect BPPV. Dizziness much improved. Schedule meclizine for now. And as needed diazepam. 04/24 patient was dizzy and PT could not move him. Orthostatic blood pressure ordered. Discussed with the orthopedic surgeon. (2) Maxillary fracture, left side, initial encounter for closed fracture: PLAN: Secondary to fall. Coservative mgmt. Dr. Godinez's input apprecriated. No blowing nose, nor sleeping on his left side. Dr. Godinez has no concerns about the patient going to surgery. Just no pressure on the left maxillary sinus. (3) Subconjunctival hemorrhage: PLAN: 2/2 to fall. Visual andrews intact, PERRL, EOMI. No hyphema. Supportive mgmt at this time. No optho needed at this time. (4) Left arm weakness: PLAN: ongoing for years (unable to flex right shoulder, but this seems to be dueto rotator cuff injury/tear). MRI brain showed no CVA. 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 Acquired mildto severe multilevel foraminal narrowing. 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 And within thebody is mentioned at C4-5 severe spinal stenosis with marked mass effect on the left cord. At C5-6 moderate spinal stenosis and severe right and moderate/severe left foraminal narrowing. C6-7 severe right and moderate left foraminal narrowing. Given the fact that this been ongoing for years is likely chronic. Will start steroids and consult spine surgery. DW Dr. Diego, tentative plan for patient to go to surgery on Wednesday. Patient nowin agreement. 04/24: Surgery for today is canceled because of his scheduling/anesthesiology staffing problem. Patient also complained of mild urine retention. Started on Flomax. Bladder scan. PLAN: Plan VTE prophylaxis with SCDs Charges/Coding Visit Charges Inpatient E&M: 58408 Subs Hosp L2 04/24/24 1418 Cosigner Signature (if applicable): CC: ~ Signed [facility]03-16-2025 Progress note Author Keanu Alfred [facility] Note Date/Time April 23, 2024 12: 42pm [facility] Medical Records Department [address] [place] [address] Progress Note - Hospitalist 04/23/24 0834 MR#: [id number] Acct: [id number] Name: YAS ROSA Rep #:[id number] : 1940 83 From: Keanu Alfred DO PCP: Dr. Kwabena Menjivar MD Status :ADM IN Location: [place] [address] Reason for Visit Reason for Visit: Diagnoses Disease of spinal cord, unspecified (04/20/24) Conjunctival hemorrhage, unspecified eye (04/20/24) Other symptoms and signs involving the musculoskeletal system (04/20/24) Syncope and collapse (04/20/24) Maxillary fracture, left side, initial encounter for closed fracture (04/20/24) Subjective Subjective Dizziness much improved. Still with paresthesias and difficulty extending his fingers on his left hand. Objective Data Objective Data Vital Signs: Vital Signs Temp Pulse Resp BP Pulse Ox O2 Del Method 36.1 C L 53 L 16 139/89 H 99 Room Air 04/23/24 02:00 04/23/24 02:00 04/23/24 02:00 04/23/24 02:00 04/23/24 02:00 04/23/24 02:00 Oxygen Delivery Method Room Air Weight: 71.6 kg Body Mass Index (BMI) 24.0 Intake & Output: Intake and Output for Last 24 Hours 04/21/24 04/22/24 04/23/24 23:59 23:59 23:59 Intake Total 1000 / 1000 220 / 220 Output Total 300 / 300 1050 / 1100 225 / 225 Balance 700 / 700 -1050 / -980 -5 / -5 Lab / Micro Data 04/20/24 05:25 04/19/24 10:50 Physical Exam Const Constitutional Narrative: No hyphema. Receding bruising and yellowing of the skin from the bruising on left face. Improving's conjunctival hemorrhage on the left eye. Eyes PERRL Neuro Neuro Narrative: Difficulty extending fingers on his left hand. Assessment & Plan Assessment/Plan (1) Syncope: PLAN: The may have been vasovagal due to the vertigo related with the dizziness. Patient at actually more of a near syncopal episode where he just felt so dizzyhit his head. Pt was having milder symptoms, but worsened after he fell and hit his head. I suspect he made it worse with the head injury. Suspect BPPV. Dizziness much improved. Schedule meclizine for now. And as needed diazepam. (2) Maxillary fracture, left side, initial encounter for closed fracture: PLAN: Secondary to fall. Coservative mgmt. Dr. Godinez's input apprecriated. No blowing nose, nor sleeping on his left side. Dr. Godinez has no concerns about the patient going to surgery. Just no pressure on the left maxillary sinus. (3) Subconjunctival hemorrhage: PLAN: 2/2 to fall. Visual andrews intact, PERRL, EOMI. No hyphema. Supportive mgmt at this time. No optho needed at this time. (4) Left arm weakness: PLAN: ongoing for years (unable to flex right shoulder, but this seems to be dueto rotator cuff injury/tear). MRI brain showed no CVA. 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 Acquired mild to severe multilevel foraminal narrowing. 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 And within thebody is mentioned at C4-5 severe spinal stenosis with marked mass effect on the left cord. At C5-6 moderate spinal stenosis and severe right and moderate/severe left foraminal narrowing. C6-7 severe right and moderate left foraminal narrowing. Given the fact that this been ongoing for years is likely chronic. Will start steroids and consult spine surgery. DW Dr. Diego, tentative plan for patient to go to surgery on Wednesday. Patient nowin agreement. PLAN: Plan VTE prophylaxis with SCDs Disposition: I discussed with the patient, that he will may require SNF/Rehab when he is ready for discharge. Charges/Coding Visit Charges Inpatient E&M: 70605 Subs Hosp L2 04/23/24 1242 <Electronically signed by Keanu Alfred DO> Cosigner Signature (if applicable): CC: ~ Signed [facility] Work Phone: 1(238) 964-564803-16-2025 Progress note [facility] Medical Records Department [address] [place] [address] Progress Note - Hospitalist 04/23/24 0834 MR#: [id number] Acct: [id number] Name: YAS ROSA Rep #:[id number] : 1940 83 From: Keanu Alfred DO PCP: Dr. Kwabena Menjivar MD Status :ADM IN Location: [place] [address] Reason for Visit Reason for Visit: Diagnoses Disease of spinal cord, unspecified (04/20/24) Conjunctival hemorrhage, unspecified eye (04/20/24) Other symptoms and signs involving the musculoskeletal system (04/20/24) Syncope and collapse (04/20/24) Maxillary fracture, left side, initial encounter for closed fracture (04/20/24) Subjective Subjective Dizziness much improved. Still with paresthesias and difficulty extending his fingers on his left hand. Objective Data Objective Data Vital Signs: Vital Signs Temp Pulse Resp BP Pulse Ox O2 Del Method 36.1 C L 53 L 16 139/89 H 99 Room Air 04/23/24 02:00 04/23/24 02:00 04/23/24 02:00 04/23/24 02:00 04/23/24 02:00 04/23/24 02:00 Oxygen Delivery Method Room Air Weight: 71.6 kg Body Mass Index (BMI) 24.0 Intake & Output: Intake and Output for Last 24 Hours 04/21/24 04/22/24 04/23/24 23:59 23:59 23:59 Intake Total 1000 / 1000 220 / 220 Output Total 300 / 300 1050 / 1100 225 / 225 Balance 700 / 700 -1050 / -980 -5 / -5 Lab / Micro Data 04/20/24 05:25 04/19/24 10:50 Physical Exam Const Constitutional Narrative: No hyphema. Receding bruising and yellowing of the skin from the bruising on left face. Improving'sconjunctival hemorrhage on the left eye. Eyes PERRL Neuro Neuro Narrative: Difficulty extending fingers on his left hand. Assessment & Plan Assessment/Plan (1) Syncope: PLAN: The may have been vasovagal due to the vertigo related with the dizziness. Patient at actually more of a near syncopal episode where he just felt so dizzyhit his head. Pt was having milder symptoms, but worsened after he fell and hit his head. I suspect he made it worse with the head injury. Suspect BPPV. Dizziness much improved. Schedule meclizine for now. And as needed diazepam. (2) Maxillary fracture, left side, initial encounter for closed fracture: PLAN: Secondary to fall. Coservative mgmt. Dr. Godinez's input apprecriated. No blowing nose, nor sleeping on his left side. Dr. Godinez has no concerns about the patient going to surgery. Just no pressure on the left maxillary sinus. (3) Subconjunctival hemorrhage: PLAN: 2/2 to fall. Visual andrews intact, PERRL, EOMI. No hyphema. Supportive mgmt at this time. No optho needed at this time. (4) Left arm weakness: PLAN: ongoing for years (unable to flex right shoulder, but this seems to be dueto rotator cuff injury/tear). MRI brain showed no CVA. 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 Acquired mildto severe multilevel foraminal narrowing. 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 And within thebody is mentioned at C4-5 severe spinal stenosis with marked mass effect on the left cord. At C5-6 moderate spinal stenosis and severe right and moderate/severe left foraminal narrowing. C6-7 severe right and moderate left foraminal narrowing. Given the fact that this been ongoing for years is likely chronic. Will start steroids and consult spine surgery. DW Dr. Diego, tentative plan for patient to go to surgery on Wednesday. Patient nowin agreement. PLAN: Plan VTE prophylaxis with SCDs Disposition: I discussed with the patient, that he will may require SNF/Rehab when he is ready for discharge. Charges/Coding Visit Charges Inpatient E&M: 59395 Subs Hosp L2 04/23/24 1242 Cosigner Signature (if applicable): CC: ~ Signed [facility]03-15-2025 Progress note Author Keanu Alfred [facility] Note Date/Time April 22, 2024 1:2 1pm [facility] Medical Records Department [address] [place] [address] Progress Note - Hospitalist 04/22/24 0851 MR#: [id number] Acct: [id number] Name: YAS ROSA Rep #:[id number] : 1940 83 From: Keanu Alfred DO PCP: Dr. Kwabena Menjivar MD Status :ADM IN Location: [place] [address] Reason for Visit Reason for Visit: Diagnoses Disease of spinal cord, unspecified (04/20/24) Conjunctival hemorrhage, unspecified eye (04/20/24) Other symptoms and signs involving the musculoskeletal system (04/20/24) Syncope and collapse (04/20/24) Maxillary fracture, left side, initial encounter for closed fracture (04/20/24) Subjective Subjective Still with dizziness with change of position. Objective Data Objective Data Vital Signs: Vital Signs Temp Pulse Resp BP Pulse Ox O2 Del Method 36.9 C 61 16 162/81 H 98 Room Air 04/22/24 08:35 04/22/24 08:35 04/22/24 08:35 04/22/24 08:35 04/22/24 08:35 04/22/24 08:35 Oxygen Delivery Method Room Air Weight: 71.6 kg Body Mass Index (BMI) 24.0 Intake & Output: Intake and Output for Last 24 Hours 04/20/24 04/21/24 04/22/24 23:59 23:59 23:59 Intake Total 450 / 450 1000 / 1000 Output Total 1000 / 1000 300 / 300 100 / 100 Balance -550 / -550 700 / 700 -100 / -100 Lab / Micro Data 04/20/24 05:25 04/19/24 10:50 Physical Exam Const alert and no apparent distress HEENT moist oral mucous membranes HEENT Narrative: left lateral nystagmus, but no reproducible dizziness. Eyes Eyes Narrative: improving conjunctival hemorrhage Resp normal respiratory effort and no retractions Assessment & Plan Assessment/Plan (1) Syncope: PLAN: The may have been due to the vertigo related with the dizziness. Patient at actually more of a near syncopal episode where he just felt so dizzy hit his head. Pt was having milder symptoms, but worsened after he fell and hit his head. I suspect he made it worse with the head injury. Suspect BPPV. Schedule meclizine for now. (2) Maxillary fracture, left side, initial encounter for closed fracture: PLAN: Secondary to fall. Coservative mgmt. Dr. Godinez's input apprecriated. No blowing nose, nor sleeping on his left side. Dr. Godinez has no concerns about the patient going to surgery. Just no pressure on the left maxillary sinus. (3) Subconjunctival hemorrhage: PLAN: 2/2 to fall. Visual andrews intact, PERRL, EOMI. No hyphema. Supportive mgmt at this time. No optho needed at this time. (4) Left arm weakness: PLAN: ongoing for years (unable to flex right shoulder, but this seems to be dueto rotator cuff injury/tear). MRI brain showed no CVA. 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 Acquired mild to severe multilevel foraminal narrowing. 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 And within thebody is mentioned at C4-5 severe spinal stenosis with marked mass effect on the left cord. At C5-6 moderate spinal stenosis and severe right and moderate/severe left foraminal narrowing. C6-7 severe right and moderate left foraminal narrowing. Given the fact that this been ongoing for years is likely chronic. Will start steroids and consult spine surgery. DW Dr. Diego, tentative plan for patient to go to surgery on Wednesday. Patient nowin agreement. PLAN: Plan VTE prophylaxis with SCDs Disposition: I discussed with the patient, that he will may require SNF/Rehab when he is ready for discharge. Charges/Coding Visit Charges Inpatient E&M: 27841 Subs Hosp L2 04/22/24 1321 <Electronically signed by Keanu Alfred DO> Cosigner Signature (if applicable): CC: ~ Signed [facility] Work Phone: 1(634) 467-859203-15-2025 Progress note [facility] Medical Records Department [address] [place] [address] Progress Note - Hospitalist 04/22/24 0851 MR#: [id number] Acct: [id number] Name: YAS ROSA Rep #:[id number] : 1940 83 From: Keanu Alfred DO PCP: Dr. Kwabena Menjivar MD Status :ADM IN Location: [place] [address] 1 Reason for Visit Reason for Visit: Diagnoses Disease of spinal cord, unspecified (04/20/24) Conjunctival hemorrhage, unspecified eye (04/20/24) Other symptoms and signs involving the musculoskeletal system (04/20/24) Syncope and collapse (04/20/24) Maxillary fracture, left side, initial encounter for closed fracture (04/20/24) Subjective Subjective Still with dizziness with change of position. Objective Data Objective Data Vital Signs: Vital Signs Temp Pulse Resp BP Pulse Ox O2 Del Method 36.9 C 61 16 162/81 H 98 Room Air 04/22/24 08:35 04/22/24 08:35 04/22/24 08:35 04/22/24 08:35 04/22/24 08:35 04/22/24 08:35 Oxygen Delivery Method Room Air Weight: 71.6 kg Body Mass Index (BMI) 24.0 Intake & Output: Intake and Output for Last 24 Hours 04/20/24 04/21/24 04/22/24 23:59 23:59 23:59 Intake Total 450 / 450 1000 / 1000 Output Total 1000 / 1000 300 / 300 100 / 100 Balance -550 / -550 700 / 700 -100 / -100 Lab / Micro Data 04/20/24 05:25 04/19/24 10:50 Physical Exam Const alert and no apparent distress HEENT moist oral mucous membranes HEENT Narrative: left lateral nystagmus, but no reproducible dizziness. Eyes Eyes Narrative: improving conjunctival hemorrhage Resp normal respiratory effort and no retractions Assessment & Plan Assessment/Plan (1) Syncope: PLAN: The may have been due to the vertigo related with the dizziness. Patient at actually more of a near syncopal episode where he just felt so dizzy hit his head. Pt was having milder symptoms, but worsened after he fell and hit his head. I suspect he made it worse with the head injury. Suspect BPPV. Schedule meclizine for now. (2) Maxillary fracture, left side, initial encounter for closed fracture: PLAN: Secondary to fall. Coservative mgmt. Dr. Godinez's input apprecriated. No blowing nose, nor sleeping on his left side. Dr. Godinez has no concerns about the patient going to surgery. Just no pressure on the left maxillary sinus. (3) Subconjunctival hemorrhage: PLAN: 2/2 to fall. Visual andrews intact, PERRL, EOMI. No hyphema. Supportive mgmt at this time. No optho needed at this time. (4) Left arm weakness: PLAN: ongoing for years (unable to flex right shoulder, but this seems to be dueto rotator cuff injury/tear). MRI brain showed no CVA. 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 Acquired mildto severe multilevel foraminal narrowing. 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 And within thebody is mentioned at C4-5 severe spinal stenosis with marked mass effect on the left cord. At C5-6 moderate spinal stenosis and severe right and moderate/severe left foraminal narrowing. C6-7 severe right and moderate left foraminal narrowing. Given the fact that this been ongoing for years is likely chronic. Will start steroids and consult spine surgery. DW Dr. Diego, tentative plan for patient to go to surgery on Wednesday. Patient nowin agreement. PLAN: Plan VTE prophylaxis with SCDs Disposition: I discussed with the patient, that he will may require SNF/Rehab when he is ready for discharge. Charges/Coding Visit Charges Inpatient E&M: 50965 Subs Hosp L2 04/22/24 1321 Cosigner Signature (if applicable): CC: ~ Signed [facility]03-14-2025 Consult note Author Ciro Diego [facility] Note Date/Time April 21, 2024 4:3 2pm [facility] Medical Records Department [address] [address] Consultation - Orthopedics 04/21/24 1621 MR#: [id number] Acct: [id number] Name: YAS ROSA Rep #:[id number] : 1940 83 From: Ciro Diego MD PCP: Dr. Kwabena Menjivar MD Status :ADM IN Location: [facility] SXP501- 1 HPI Consult Data Date of Consult: 04/21/24 HPI Narrative HPI Narrative: YAS ROSA, is a 83 M who presents with left arm weakness and facial injuries from a fall. I was consulted for MRI findings of severe spinal cord compression and cervical spine. I saw the patient in PCU 126. I spoke with the patient and his who was on speaker phone. Patient has had at least 1 year history of progressive weakness and balance issues causing multiple falls. He has fallen at least 4 times over the last fewmonths and the most recent fracture was 2 days ago which caused him to have maxilla fractures and facial injuries and got him admitted to the hospital. He is right-hand dominant. He has noticed significant weakness in the left upper extremity says that he just cannot move his elbow hands and fingers. He also has some shoulder weakness in the right upper extremity. He has not been able to stand or walk since admission. He denies any known history of stroke in the past. He is not on any blood thinners. She is nondiabetic. He feels that he was already weak in the fall aggravated his weakness even more since that his left arm is nearly unable to move. He is concerned that his balance difficulties have significantly worsened since that he has had tremendous difficulty being independently ambulatory. [facility] Medical History Anxiety Irritable bowel syndrome with diarrhea Loss of hearing Wears glasses Wears dentures Alcohol use Arthritis Syncope History of IBS Heartburn Former smoker History of stress test Diarrhea Depression Home Medications ?Medication ?Instructions ?Recorded ?Last Taken ?Type NK 02/26/24 Unknown History Allergy/AdvReac Type Severity Reaction Status Date / Time No Known Allergies Allergy Verified 04/19/24 11:00 Surgical History Hx of colonoscopy History of tonsillectomy and adenoidectomy History of appendectomy Social History household members: none housing: apartment Smoking Status: Former smoker alcohol intake: current alcohol intake frequency: holidays/special occasions only substance use type: does not use Vital Signs Vital Signs Vital Signs: 04/20/24 22:00 04/20/24 22:03 04/21/24 03:14 Temperature 97.4 F L 97.5 F L Temperature Source Temporal Temporal Pulse Rate 66 56 L Pulse Rate [Lying] Pulse Rate [Sitting (for 1 minute prior to obtaining)] Respiratory Rate 18 18 Respiratory Effort Normal Non-Labored Respiratory Depth Normal Respiratory Pattern Normal Blood Pressure 120/66 144/66 H Blood Pressure [Lying] Blood Pressure [Sitting (for 1 minute prior to obtaining)] Blood Pressure Mean 84 92 Blood Pressure Mean [Lying] Blood Pressure Mean [Sitting (for 1 minute prior to obtaining)] Blood Pressure Source Monitor Monitor Blood Pressure Position Semi-Fowlers Semi-Fowlers Blood Pressure Location Left Arm Left Arm Pulse Ox 99 96 Oxygen Delivery Method Room Air Room Air Room Air 04/21/24 09:58 04/21/24 14:37 Temperature 97.9 F Temperature Source Oral Pulse Rate 54 L Pulse Rate [Lying] 58 L Pulse Rate [Sitting (for 1 minute prior to obtaining)] 79 Respiratory Rate 16 Respiratory Effort Respiratory Depth Respiratory Pattern Blood Pressure 141/69 H Blood Pressure [Lying] 150/67 H Blood Pressure [Sitting (for 1 minute prior to obtaining)] 114/61 Blood Pressure Mean 93 Blood Pressure Mean [Lying] 94 Blood Pressure Mean [Sitting (for 1 minute prior to obtaining)] 78 Blood Pressure Source Monitor Blood Pressure Position Semi-Fowlers Blood Pressure Location Left Arm Pulse Ox 98 Oxygen Delivery Method Room Air Weight Weight: 157 lb 13.616 oz Body Mass Index (BMI) 24.0 Physical Exam Narrative Examination the neck shows no tenderness. 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 Right upper extremity shows 5 x 5 strength except for grade 4 shoulder abduction. Mireille's positive bilaterally. Lower extremity shows 4+ power in all muscle groups both sides. There is hyperreflexia in both lower extremities. Gait could not be tested due to severe difficulty with balance. Lab / Micro Data 04/20/24 05:25 04/19/24 10:50 Assessment & Plan Assessment/Plan (1) Left arm weakness: (2) Cervical myelopathy: PLAN: Plan Reviewed MRI of cervical spine done 2 days ago in the hospital at the time of admission. Also reviewed x-rays of cervical spine done on 03/08/2024. These show reduced disc height at multiple levels especially C3-4. MRI shows C3-6 stenosis with severe cord compression and myelomalacia. C4-5 has fairly large left paracentral disc herniation causing severe critical left hemicord compression with cord signal changes. Severe foraminal stenosis noticed at these levels as well. Explained to him and his the imaging findings in detail. Patient has developed severe progressive cervical myelopathy with progressive balance difficulties and multiple falls. The recent fall has caused a maxillary fracture. With time patient has noticed worsening difficulty with balance such that he has had difficulty maintaining his ambulatory function. He has severe monoparesis in the left upper extremity with nearly grade 0 power in some of themuscle groups. He has hyperreflexia consistent with myelopathy. Explained to him the natural history of cervical myelopathy which is typically that of progressive worsening. Patient is already developed significant partial paralysis of left upper extremity. Explained to him that the treatment recommendation would be surgical decompression. Recommend C3- 6 ACDF in hopes ofhalting the progression of myelopathy. Also discussed possibility of posterior decompression alone versus posterior fixation done in addition to anterior surgery. Since majority of the compression is from the large disc herniation atC4-5 on the left, I recommend C3-6 ACDF. While this may increase his preoperative baseline dysphagia, this will in my opinion have the highest likelihood of achieving satisfactory neural decompression anteriorly. Discussedrisk benefits and alternatives. The risks include but are not limited to infection, bleeding, hematoma formation, need for further surgery, persistent dysphagia, dysphonia, recurrent laryngeal nerve injury, hoarseness, Toi syndrome, visceral injury, persistent pain, persistent weakness, inability to walk, spinal cord injury, nerve root injury, paralysis, DVT, pulm embolism, pseudoarthrosis, adjacent segment degeneration, cardiopulmonary event, stroke, . Patient understands and would like to discuss with his about proceeding with surgery. Surgery will likely be scheduled during this admissionlikely early next week on an urgent basis to allow maximal retention of spinal cord function. Patient will think over and let us know so we can schedule surgery. Patient was in agreement. Charges/Coding Visit Charges Inpatient E&M: 74665 Init Hosp L3 04/21/24 3110 <Electronically signed by Ciro Diego MD> Cosigner Signature (if applicable): CC: Dr. Kwabena Menjivar MD; Dr. Keanu Alfred, DO~ Signed [facility] Work Phone: [phone]) [phone] Consult note [facility] Medical Records Department [address] [place] [address] Consultation - Orthopedics 04/21/24 1621 MR#: [id number] Acct: [id number] Name: YAS ROSA Rep #:[id number] : 1940 83 From: Ciro Diego MD PCP: Dr. Kwabena Menjivar MD Status :ADM IN Location: [place] [address] HPI Consult Data Date of Consult: 04/21/24 HPI Narrative HPI Narrative: YAS ROSA, is a 83 M who presents with left arm weakness and facial injuries from a fall. I was consulted for MRI findings of severe spinal cord compression and cervical spine. I saw the patient in PCU 126. I spoke with the patient and his who was on speaker phone. Patient has had at least 1 year history of progressive weakness and balance issues causing multiplefalls. He has fallen at least 4 times over the last fewmonths and the most recent fracture was 2 days ago which caused him to have maxilla fractures and facial injuries and got him admitted to the hospital. He is right-hand dominant. He has noticed significant weakness in the left upper extremity says that he just cannot move his elbow hands and fingers. He also has some shoulder weakness in the right upper extremity. He has not been able to stand or walk since admission. He denies any known history of stroke in the past. He is not on any blood thinners. She is nondiabetic. He feels that he was already weak in the fall aggravated his weakness even more since that his left arm is nearly unable to move. He is concerned that his balance difficulties have significantly worsened since that he has had tremendous difficulty being independently ambulatory. [facility] Medical History Anxiety Irritable bowel syndrome with diarrhea Loss of hearing Wears glasses Wears dentures Alcohol use Arthritis Syncope History of IBS Heartburn Former smoker History of stress test Diarrhea Depression Home Medications ?Medication ?Instructions ?Recorded ?Last Taken ?Type NK 02/26/24 Unknown History Allergy/AdvReac Type Severity Reaction Status Date / Time No Known Allergies Allergy Verified 04/19/24 11:00 Surgical History Hx of colonoscopy History of tonsillectomy and adenoidectomy History of appendectomy Social History household members: none housing: apartment Smoking Status: Former smoker alcohol intake: current alcohol intake frequency: holidays/special occasions only substance use type: does not use Vital Signs Vital Signs Vital Signs: 04/20/24 22:00 04/20/24 22:03 04/21/24 03:14 Temperature 97.4 F L 97.5 F L Temperature Source Temporal Temporal Pulse Rate 66 56 L Pulse Rate [Lying] Pulse Rate [Sitting (for 1 minute prior to obtaining)] Respiratory Rate 18 18 Respiratory Effort Normal Non-Labored Respiratory Depth Normal Respiratory Pattern Normal Blood Pressure 120/66 144/66 H Blood Pressure [Lying] Blood Pressure [Sitting (for 1 minute prior to obtaining)] Blood Pressure Mean 84 92 Blood Pressure Mean [Lying] Blood Pressure Mean [Sitting (for 1 minute prior to obtaining)] Blood Pressure Source Monitor Monitor Blood Pressure Position Semi-Fowlers Semi-Fowlers Blood Pressure Location Left Arm Left Arm Pulse Ox 99 96 Oxygen Delivery Method Room Air Room Air Room Air 04/21/24 09:58 04/21/24 14:37 Temperature 97.9 F Temperature Source Oral Pulse Rate 54 L Pulse Rate [Lying] 58 L Pulse Rate [Sitting (for 1 minute prior to obtaining)] 79 Respiratory Rate 16 Respiratory Effort Respiratory Depth Respiratory Pattern Blood Pressure 141/69 H Blood Pressure [Lying] 150/67 H Blood Pressure [Sitting (for 1 minute prior to obtaining)] 114/61 Blood Pressure Mean 93 Blood Pressure Mean [Lying] 94 Blood Pressure Mean [Sitting (for 1 minute prior to obtaining)] 78 Blood Pressure Source Monitor Blood Pressure Position Semi-Fowlers Blood Pressure Location Left Arm Pulse Ox 98 Oxygen Delivery Method Room Air Weight Weight: 157 lb 13.616 oz Body Mass Index (BMI) 24.0 Physical Exam Narrative Examination the neck shows no tenderness. 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 Right upper extremity shows 5 x 5 strength except for grade4 shoulder abduction. Mireille's positive bilaterally. Lower extremity shows 4+ power in all musclegroups both sides. There is hyperreflexia in both lower extremities. Gait could not be tested due to severe difficulty with balance. Lab / Micro Data 04/20/24 05:25 04/19/24 10:50 Assessment & Plan Assessment/Plan (1) Left arm weakness: (2) Cervical myelopathy: PLAN: Plan Reviewed MRI of cervical spine done 2 days ago in the hospital at the time of admission. Also reviewed x-rays of cervical spine done on 03/08/2024. These show reduced disc height at multiple levels especially C3-4. MRI shows C3-6 stenosis with severe cord compression and myelomalacia. C4-5 has fairly large left paracentral disc herniation causing severe critical left hemicord compression with cordsignal changes. Severe foraminal stenosis noticed at these levels as well. Explained to him and his the imaging findings in detail. Patient has developed severe progressive cervical myelopathy with progressive balance difficulties and multiple falls. The recent fall has caused a maxillary fracture. With time patient has noticed worsening difficulty with balance such t hat he has had difficulty maintaining his ambulatory function. He has severe monoparesis in the left upper extremity with nearly grade 0 power in some of themuscle groups. He has hyperreflexia consistent with myelopathy. Explained to him the natural history of cervical myelopathy which is typicallythat of progressive worsening. Patient is already developed significant partial paralysis of left upper extremity. Explained to him that the treatment recommendation would be surgical decompression. Recommend C3-6 ACDF in hopes ofhalting the progression of myelopathy. Also discussed possibility of posterior decompression alone versus posterior fixation done in addition to anterior surgery. Since majority of the compression is from the large disc herniation atC4-5 on the left, I recommend C3-6 ACDF. While this may increase his preoperative baseline dysphagia, this will in my opinion have the highest likelihood of achieving satisfactory neural decompression anteriorly. Discussedrisk benefits and alternatives. The risks include but are not limited to infection, bleeding, hematoma formation, need for further surgery, persistent dysphagia, dysphonia, recurrent laryngeal nerve injury, hoarseness, Toi syndrome, visceral injury, persistent pain, persistent weakness, inability to walk, spinal cord injury, nerve root injury, paralysis, DVT, pulm embolism, pseudoarthrosis, adjacent segment degeneration, cardiopulmonary event, stroke, . Patient understands and would like to discuss with his about proceeding with surgery. Surgery will likely be scheduled during this admissionlikely early next week on an urgent basis to allow maximal retention of spinal cord function. Patient will think over and let us know so we can schedule surgery. Patient was in agreement. Charges/Coding Visit Charges Inpatient E&M: 07399 Init Hosp L3 04/21/24 1632 Cosigner Signature (if applicable): CC: Dr. Kwabena Menjivar MD; Dr. Keanu Alfred DO~ Signed [facility]03-14-2025 Progress note Author Keanu Alfred [facility] Note Date/Time April 21, 2024 1:5 7pm [facility] Medical Records Department [address] [place] [address] Progress Note - Hospitalist 04/21/24829 MR#: [id number] Acct: [id number] Name: YAS ROSA Rep #:[id number] : 1940 83 From: Keanu Alfred DO PCP: Dr. Kwabena Menjivar MD Status :ADM IN Location: [place] [address] Reason for Visit Reason for Visit: Diagnoses Conjunctival hemorrhage, unspecified eye (04/20/24) Other symptoms and signs involving the musculoskeletal system (04/20/24) Syncope and collapse (04/20/24) Maxillary fracture, left side, initial encounter for closed fracture (04/20/24) Subjective Subjective Still with dizziness upon movement. Objective Data Objective Data Vital Signs: Vital Signs Temp Pulse Resp BP Pulse Ox O2 Del Method 36.4 C L 56 L 18 144/66 H 96 Room Air 04/21/24 03:14 04/21/24 03:14 04/21/24 03:14 04/21/24 03:14 04/21/24 03:14 04/21/24 03:14 Oxygen Delivery Method Room Air Weight: 71.6 kg Body Mass Index (BMI) 24.0 Intake & Output: Intake and Output for Last 24 Hours 04/19/24 04/20/24 04/21/24 23:59 23:59 23:59 Intake Total 450 / 450 1000 / 1000 Output Total 1000 / 1000 Balance -550 / -550 1000 / 1000 Lab / Micro Data 04/20/24 05:25 04/19/24 10:50 Radiography Diagnostic Testing: Radiology Impression Echocardiogram 04/19/24 12:49 Interpretation Summary The estimated ejection fraction is 70 %. No evidence for diastolic dysfunction. Ordering Physician: Keanu Alfred Referring Physician: Kwabena Menjivar Performed By: Melida Child, ALTAGRACIA, RVT Physical Exam Const alert and no apparent distress HEENT HEENT Narrative: ecchymosis left eye lid. Conjunctival hemorrhage. No hyphema. Neuro Sensorium / Orientation: awake and alert Assessment & Plan Assessment/Plan (1) Syncope: PLAN: The may have been due to the vertigo related with the dizziness. Patient at actually more of a near syncopal episode where he just felt so dizzy hit his head. May be some postconcussion syndrome. Will check an echocardiogram given this dizziness he has been having over the past couple months. Additionally check orthostatic vital signs and monitor on telemetry. He may have BPPV. Add PRN meclizine. (2) Maxillary fracture, left side, initial encounter for closed fracture: PLAN: Secondary to fall. Coservative mgmt. Dr. Godinez's input apprecriated. No blowing nose, nor sleeping on his left side. Dr. Godinez has no concerns about the patient going to surgery. Just no pressure on the left maxillary sinus. (3) Subconjunctival hemorrhage: PLAN: 2/2 to fall. Visual andrews intact, PERRL, EOMI. No hyphema. Supportive mgmt at this time. No optho needed at this time. (4) Left arm weakness: PLAN: ongoing for years (unable to flex right shoulder, but this seems to be dueto rotator cuff injury/tear). MRI brain showed no CVA. 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 Acquired mild to severe multilevel foraminal narrowing. 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 And within thebody is mentioned at C4-5 severe spinal stenosis with marked mass effect on the left cord. At C5-6 moderate spinal stenosis and severe right and moderate/severe left foraminal narrowing. C6-7 severe right and moderate left foraminal narrowing. Given the fact that this been ongoing for years is likely chronic. Will start steroids and consult spine surgery. DW Dr. Diego, tentative plan for patient to go to surgery on Wednesday, if patient agrees. PLAN: Plan VTE prophylaxis with SCDs Charges/Coding Visit Charges Inpatient E&M: 02363 Subs Hosp L2 04/21/24 8479 <Electronically signed by Keanu Alfred DO> Cosigner Signature (if applicable): CC: ~ Signed [facility] Work Phone: [phone]) 210-311603-14-2025 Progress note [facility] Medical Records Department [address] [place] [address] Progress Note - Hospitalist 04/21/24 0830 MR#: [id number] Acct: [id number] Name: YAS ROSA Rep #:[id number] : 1940 83 From: Keanu Alfred DO PCP: Dr. Kwabena Menjivar MD Status :ADM IN Location: [place] [address] Reason for Visit Reason for Visit: Diagnoses Conjunctival hemorrhage, unspecified eye (04/20/24) Other symptoms and signs involving the musculoskeletal system (04/20/24) Syncope and collapse (04/20/24) Maxillary fracture, left side, initial encounter for closed fracture (04/20/24) Subjective Subjective Still with dizziness upon movement. Objective Data Objective Data Vital Signs: Vital Signs Temp Pulse Resp BP Pulse Ox O2 Del Method 36.4 C L 56 L 18 144/66 H 96 Room Air 04/21/24 03:14 04/21/24 03:14 04/21/24 03:14 04/21/24 03:14 04/21/24 03:14 04/21/24 03:14 Oxygen Delivery Method Room Air Weight: 71.6 kg Body Mass Index (BMI) 24.0 Intake & Output: Intake and Output for Last 24 Hours 04/19/24 04/20/24 04/21/24 23:59 23:59 23:59 Intake Total 450 / 450 1000 / 1000 Output Total 1000 / 1000 Balance -550 / -550 1000 / 1000 Lab / Micro Data 04/20/24 05:25 04/19/24 10:50 Radiography Diagnostic Testing: Radiology Impression Echocardiogram 04/19/24 12:49 Interpretation Summary The estimated ejection fraction is 70 %. No evidence for diastolic dysfunction. Ordering Physician: Keanu Alfred Referring Physician: Kwabena Menjivar Performed By: Melida Child, ALTAGRACIA, RVT Physical Exam Const alert and no apparent distress HEENT HEENT Narrative: ecchymosis left eye lid. Conjunctival hemorrhage. No hyphema. Neuro Sensorium / Orientation: awake and alert Assessment & Plan Assessment/Plan (1) Syncope: PLAN: The may have been due to the vertigo related with the dizziness. Patient at actually more of a near syncopal episode where he just felt so dizzy hit his head. May be some postconcussion syndrome. Will check an echocardiogram given this dizziness he has been having over the past couple months. Additionally check orthostatic vital signs and monitor on telemetry. He may have BPPV. Add PRN meclizine. (2) Maxillary fracture, left side, initial encounter for closed fracture: PLAN: Secondary to fall. Coservative mgmt. Dr. Godinez's input apprecriated. No blowing nose, nor sleeping on his left side. Dr. Godinez has no concerns about the patient going to surgery. Just no pressure on the left maxillary sinus. (3) Subconjunctival hemorrhage: PLAN: 2/2 to fall. Visual andrews intact, PERRL, EOMI. No hyphema. Supportive mgmt at this time. No optho needed at this time. (4) Left arm weakness: PLAN: ongoing for years (unable to flex right shoulder, but this seems to be dueto rotator cuff injury/tear). MRI brain showed no CVA. 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 Acquired mildto severe multilevel foraminal narrowing. 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 And within thebody is mentioned at C4-5 severe spinal stenosis with marked mass effect on the left cord. At C5-6 moderate spinal stenosis and severe right and moderate/severe left foraminal narrowing. C6-7 severe right and moderate left foraminal narrowing. Given the fact that this been ongoing for years is likely chronic. Will start steroids and consult spine surgery. DW Dr. Diego, tentative plan for patient to go to surgery on Wednesday, if patient agrees. PLAN: Plan VTE prophylaxis with SCDs Charges/Coding Visit Charges Inpatient E&M: 85561 Subs Hosp L2 04/21/24 0243 Cosigner Signature (if applicable): CC: ~ Signed [facility]03-13-2025 Progress note Author Keanu Alfred [facility] Note Date/Time April 20, 2024 1:5 7pm [facility] Medical Records Department [address] [place] [address] Progress Note - Hospitalist 04/20/24 0752 MR#: [id number] Acct: [id number] Name: YAS ROSA Rep #:[id number] : 1940 83 From: Keanu Alfred DO PCP: Dr. Kwabena Menjivar MD Status :ADM IN Location: [place] [address] 1 Reason for Visit Reason for Visit: Diagnoses Conjunctival hemorrhage, unspecified eye (04/19/24) Other symptoms and signs involving the musculoskeletal system (04/19/24) Syncope and collapse (04/19/24) Maxillary fracture, left side, initial encounter for closed fracture (04/19/24) Subjective Subjective Denies visual changes. Dizzy with change in position. Objective Data Objective Data Vital Signs: Vital Signs Temp Pulse Resp BP Pulse Ox O2 Del Method 36.7 C 67 16 119/66 98 Room Air 04/20/24 03:15 04/20/24 03:15 04/20/24 03:15 04/20/24 03:15 04/20/24 03:15 04/20/24 03:15 Oxygen Delivery Method Room Air Weight: 71.6 kg Body Mass Index (BMI) 24.0 Intake & Output: Intake and Output for Last 24 Hours 04/18/24 04/19/24 04/20/24 23:59 23:59 23:59 Intake Total 450 / 450 Output Total 500 / 500 Balance -50 / -50 Lab / Micro Data 04/20/24 05:25 04/19/24 10:50 Labs: Laboratory Results - last 24 hr 04/19/24 10:50: WBC 14.4 H, RBC 5.34, Hgb 16.0, Hct 45.5, MCV 85.2, MCH 30.0, MCHC 35.2, RDW Std Deviation 37.7, RDW Coeff of Delia 12.3, Plt Count 216, MPV 8.6, Immature Gran % (Auto) 0.500, Neut % (Auto) 83.7 H, Lymph % (Auto) 9.8 L, [place] % (Auto) 5.7, Eos % (Auto) 0.0, Baso % (Auto) 0.3, Absolute Neuts (auto) 12.1 H, Absolute Lymphs (auto) 1.41, Nucleated RBC % 0, PT 13.5, INR 1.0, APTT 23.4 L, Sodium 137, Potassium 3.6, Chloride 98, Carbon Dioxide 22.0, Anion Gap 17 H, BUN 20 H, Creatinine 0.92, Estim Creat Clear Calc 59.89, Est GFR (MDRD) Non-Af 83, BUN/Creatinine Ratio 21.7 H, Glucose 152 H, Calcium 9.5, Troponin T High Sens 31 H 04/19/24 10:57: POC Glucose 143 H 04/19/24 15:48: Troponin T High Sens 31 H 04/19/24 17:25: Troponin T Hi Sens 2 Hr 30 H 04/19/24 21:15: Troponin T Hi Sens 4Hr 35 H 04/20/24 05:25: WBC 11.9 H, RBC 4.47 L, Hgb 13.2, Hct 38.5 L, MCV 86.1, MCH 29.5, MCHC 34.3, RDW Std Deviation 39.5, RDW Coeff of Delia 12.7, Plt Count 216, MPV 8.9, Immature Gran % (Auto) 0.300, Neut % (Auto) 73.5 H, Lymph % (Auto) 17.6L, [place] % (Auto) 8.4, Eos % (Auto) 0.1, Baso % (Auto) 0.1, Absolute Neuts (auto)8.7 H, Absolute Lymphs (auto) 2.09, Nucleated RBC % 0 Radiography Diagnostic Testing: Radiology Impression Brain CT 04/19/24 10:40 IMPRESSION: Cerebral atrophy. Small scalp hematoma overlying the left posterior parietal occipital bone. The results were communicated to the referring physician. One or more dose reduction techniques were used (e.g., Automated exposure control, adjustment of the mA and/or kV according to patient size, use of iterative reconstruction technique). Reading Location: [place] [address] Facial/Sinus 04/19/24 10:42 IMPRESSION: Mildly depressed fracture of the lateral wall of the left maxillary sinus extending to the anterior aspect laterally with opacification of the left maxillary sinus. Air is seen within the overlying soft tissues. There is evidence of soft tissue swelling overlying the left orbital and left maxillary region. One or more dose reduction techniques were used (e.g., Automated exposure control, adjustment of the mA and/or kV according to patient size, use of iterative reconstruction technique). Reading Location: [place] [address] Head/Neck CTA 04/19/24 10:54 IMPRESSION: RIGHT CAROTID: Unremarkable LEFT CAROTID: Minimal plaque at the origin of the left internal carotid artery. VERTEBRALS: Unremarkable INTRACRANIAL: Unremarkable. One or more dose reduction techniques were used (e.g., Automated exposure control, adjustment of the mA and/or kV according to patient size, use of iterative reconstruction technique). Reading Location: [place] [address] Chest X-Ray 04/19/24 11:20 IMPRESSION: 1. No visible acute cardiopulmonary findings. 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 Consider outpatient CT chest. 2. Additional description as above. Reading Location: [id number] Brain MRI 04/19/24 15:02 IMPRESSION: 1. No acute intracranial abnormality, specifically no evidence of acute ischemia. 2. Mild atrophy and chronic small-vessel ischemic changes. 3. Acute left facial bone fractures better seen and described on recent facial bone CT. Reading Location: [facility] Cervical Spine MRI 04/19/24 15:02 IMPRESSION: 1. 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 2. Acquired mild to severe multilevel foraminal narrowing. See level by level comments above. 3. 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 Reading [facility] Physical Exam Const alert and no apparent distress HEENT HEENT Narrative: left lower eyelid ecchymosis. subconjunctival hemorrhage. no hyphema. Eyes EOMs intact bilaterally Resp normal respiratory effort GI normal to inspection, nondistended, normoactive bowel sounds, soft to palpation,non-tender and non-distended Extremity normal to inspection and full ROM Assessment & Plan Assessment/Plan (1) Syncope: PLAN: The may have been due to the vertigo related with the dizziness. Patient at actually more of a near syncopal episode where he just felt so dizzy hit his head. May be some postconcussion syndrome. Will check an echocardiogram given this dizziness he has been having over the past couple months. Additionally check orthostatic vital signs and monitor on telemetry. He may have BPPV. Add PRN meclizine. (2) Maxillary fracture, left side, initial encounter for closed fracture: PLAN: Secondary to fall. Coservative mgmt. Dr. Godinez's input apprecriated. No blowing nose, nor sleeping on his left side. (3) Subconjunctival hemorrhage: PLAN: 2/2 to fall. Visual andrews intact, PERRL, EOMI. No hyphema. Supportive mgmt at this time. No optho needed at this time. (4) Left arm weakness: PLAN: ongoing for years (unable to flex right shoulder, but this seems to be dueto rotator cuff injury/tear). MRI brain showed no CVA. 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 Acquired mild to severe multilevel foraminal narrowing. 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 And within thebody is mentioned at C4-5 severe spinal stenosis with marked mass effect on the left cord. At C5-6 moderate spinal stenosis and severe right and moderate/severe left foraminal narrowing. C6-7 severe right and moderate left foraminal narrowing. Given the fact that this been ongoing for years is likely chronic. Will start steroids and consult spine surgery. PLAN: Plan VTE prophylaxis with SCDs Charges/Coding Visit Charges Inpatient E&M: 60554 Subs Hosp L2 04/20/24 1257 <Electronically signed by Keanu Alfred DO> Cosigner Signature (if applicable): CC: ~ Signed ADDENDUM by Dr. Keanu Alfred DO on 04/20/24 at 1357 Addendum Advance care planning: Spent an additional 20 minutes discussing with the patient and his significant other about CODE STATUS. Was notified by nursing force inform us that the patient wanted change his CODE STATUS from DNR Comfort Care arrest to full code. I went and talked to the patient explained the different CODE STATUS with him. Explained CPR with him and emphasizing that many times people who survive CPR, which is low, that they wind up being on a ventilator. I told him that we will express his wishes and make him full code but I did encourage him and his spouse to discuss at a later time as they get older when with doing CPR be futile. Procedures Hospitalists Procedures: 79827 Advncd Care Plan 30 Min 04/20/24 1357<Electronically signed by Keanu Alfred DO> Cosigner Signature (if applicable): cc: ~* Signed [facility] Work Phone: 1(341) 233-823103-13-2025 Evaluation note* Diagnosis Onset Date Resolution Status Admit Date Cervical myelopathy acute April 20, 2024 12:54pm Closed fracture of left maxi llary sinus acute April 20, 2024 12:54pm Epistaxis acute April 20 12:54pm Fall acute April 20 12:54pm Left arm weakness acute April 082024 12:54pm Maxillary fracture, left luz e, initial encounter for closed fracture acute April 20, 2024 12:54pm Maxillary sinus fracture acute April 20, 2024 12:54pm Subconjunctival hemorrhage acute April 20, 2024 12:54pm Syncope acute April 20 12:54pm Chronic left shoulder pain chronic April 20, 2024 12:54pm Hypertension chronic April 20, 2024 12:54pm [facility] Work Phone: 1(670) 310-951903-13-2025 Evaluation note* Diagnosis Onset Date Resolution Status Admit Date Fall acute April 20 12:54pm Chronic left shoulder pain chronic April 20, 2024 12:54pm Hypertension chronic April 20, 2024 12:54pm Epistaxis resolved April 20 12:54pm Subconjunctival hemorrhage resolved April 20, 2024 12:54pm Cervical myelopathy inactive April 20, 2024 12:54pm Closed fracture of left maxillary sinus deleted April 20, 2024 12:54pm Left arm weakness deleted April 082024 12:54pm Maxillary fracture, left luz e, initial encounter for closed fracture deleted April 20, 2024 12:54pm Maxillary sinus fracture deleted April 20, 2024 12:54pm Syncope deleted April 20 12:54pm Acute blood loss as cause of postoperative anemia acute April 27, 2024 3:15pm Anxiety acute April 27 3:15pm BPPV (benign paroxysmal positional vertigo) acute April 27, 2024 3:15pm Debility acute April 27 3:15pm Dysphagia acute April 27 3:15pm Fall acute April 27 3:15pm GERD (gastroesophageal reflu x disease) acute April 27, 2024 3:15pm Laryngeal edema acute April 3:15pm Left maxillary fracture acute 2024 3:15pm Multiple falls acute April 3:15pm Muscle spasm acute April 27, 2024 3:15pm Orthostatic hypotension acute 2024 3:15pm Osteoarthritis acute April 3:15pm Severe dehydration acute April 27, 2024 3:15pm Status post cervical spinal fusion acute April 27, 2024 3:15pm Traumatic brain injury with loss of consciousness acute April 27 3:15pm Urinary incontinence acute [facility] 2024 3:15pm Urinary tract infection acute [facility] 2024 3:15pm Urine retention acute April 3:15pm Anxiety and depression chronic [facility] 2024 3:15pm Bilateral arm weakness chronic [facility] 2024 3:15pm Cervical cord myelomalacia chronic April 27, 2024 3:15pm Cervical stenosis of spinal canal chronic April 27, 2024 3:15pm Chronic left shoulder pain chronic April 27, 2024 3:15pm 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 April 27, 2024 3:15pm GERD with esophagitis chronic [facility] 2024 3:15pm History of IBS chronic April 3:15pm Postural dizziness with near syncope chronic April 27, 2024 3:15pm Urinary hesitancy chronic April 092024 3:15pm Ventral hernia chronic April 3:15pm BPH (benign prostatic hyperplasia) suspected April 27, 2024 3:15pm Cervical myelopathy inactive April 27, 2024 3:15pm [facility] Work Phone: 1(641) 667-542103-13-2025 Evaluation note* Diagnosis Onset Date Resolution Status Admit Date Fall acute April 20 12:54pm Chronic left shoulder pain chronic April 20, 2024 12:54pm Hypertension chronic April 20, 2024 12:54pm Epistaxis resolved April 20 12:54pm Subconjunctival hemorrhage resolved April 20, 2024 12:54pm Cervical myelopathy inactive April 20, 2024 12:54pm Closed fracture of left maxillary sinus deleted April 20, 2024 12:54pm Left arm weakness deleted April 082024 12:54pm Maxillary fracture, left luz e, initial encounter for closed fracture deleted April 20, 2024 12:54pm Maxillary sinus fracture deleted April 20, 2024 12:54pm Syncope deleted April 20 12:54pm BPPV (benign paroxysmal positional vertigo) acute April 27, 2024 3:15pm Debility acute April 27 3:15pm Dysphagia acute April 27 3:15pm Fall acute April 27 3:15pm GERD (gastroesophageal reflu x disease) acute April 27, 2024 3:15pm Muscle spasm acute April 27, 2024 3:15pm Orthostatic hypotension acute [facility] 2024 3:15pm Osteoarthritis acute April 3:15pm Severe dehydration acute April 27, 2024 3:15pm Status post cervical spinal fusion acute April 27, 2024 3:15pm Traumatic brain injury with loss of consciousness acute April 27 3:15pm Urinary incontinence acute [facility] 2024 3:15pm Urine retention acute April 3:15pm Anxiety and depression chronic [facility] 2024 3:15pm Bilateral arm weakness chronic [facility] 2024 3:15pm Chronic left shoulder pain chronic April 27, 2024 3:15pm GERD with esophagitis chronic [facility] 2024 3:15pm History of IBS chronic April 3:15pm Postural dizziness with near syncope chronic April 27, 2024 3:15pm Urinary hesitancy chronic April 092024 3:15pm Ventral hernia chronic April 3:15pm BPH (benign prostatic hyperplasia) suspected April 27, 2024 3:15pm Acute blood loss as cause of postoperative anemia resolved April 27, 2024 3:15pm Anxiety resolved April 27 3:15pm Cervical cord myelomalacia resolved April 27, 2024 3:15pm Cervical stenosis of spinal canal resolved April 27, 2024 3:15pm Foraminal stenosis of cervic al region resolved April 27, 2024 3:15pm Laryngeal edema resolved April 3:15pm Left maxillary fracture resolved [facility] 2024 3:15pm Multiple falls resolved April 3:15pm Urinary tract infection resolved [facility] 2024 3:15pm Cervical myelopathy inactive April 27, 2024 3:15pm Constipation acute May 25, 2024 12:30pm Fecal incontinence acute May 25, 2024 12:30pm [facility] Work Phone: 1(232) 469-406703-13-2025 Evaluation note* Diagnosis Onset Date Resolution Status Admit Date Fall acute April 20 12:54pm Chronic left shoulder pain chronic April 20, 2024 12:54pm Hypertension chronic March 13th, 2025 12:54pm Epistaxis resolved April 20 12:54pm Subconjunctival hemorrhage resolved April 20, 2024 12:54pm Cervical myelopathy inactive April 20, 2024 12:54pm Closed fracture of left maxillary sinus deleted April 20, 2024 12:54pm Left arm weakness deleted April 082024 12:54pm Maxillary fracture, left luz e, initial encounter for closed fracture deleted April 20, 2024 12:54pm Maxillary sinus fracture deleted April 20, 2024 12:54pm Syncope deleted April 20 12:54pm BPPV (benign paroxysmal positional vertigo) acute April 27, 2024 3:15pm Debility acute April 27 3:15pm Dysphagia acute April 27 3:15pm Fall acute April 27 3:15pm GERD (gastroesophageal reflu x disease) acute April 27, 2024 3:15pm Muscle spasm acute April 27, 2024 3:15pm Orthostatic hypotension acute [facility] 2024 3:15pm Osteoarthritis acute April 3:15pm Severe dehydration acute April 27, 2024 3:15pm Status post cervical spinal fusion acute April 27, 2024 3:15pm Traumatic brain injury with loss of consciousness acute April 27 3:15pm Urinary incontinence acute [facility] 2024 3:15pm Urine retention acute April 3:15pm Anxiety and depression chronic [facility] 2024 3:15pm Bilateral arm weakness chronic [facility] 2024 3:15pm Chronic left shoulder pain chronic April 27, 2024 3:15pm GERD with esophagitis chronic [facility] 2024 3:15pm History of IBS chronic April 3:15pm Postural dizziness with near syncope chronic April 27, 2024 3:15pm Urinary hesitancy chronic April 092024 3:15pm Ventral hernia chronic April 3:15pm BPH (benign prostatic hyperplasia) suspected April 27, 2024 3:15pm Acute blood loss as cause of postoperative anemia resolved April 27, 2024 3:15pm Anxiety resolved April 27 3:15pm Cervical cord myelomalacia resolved April 27, 2024 3:15pm Cervical stenosis of spinal canal resolved April 27, 2024 3:15pm Foraminal stenosis of cervic al region resolved April 27, 2024 3:15pm Laryngeal edema resolved April 3:15pm Left maxillary fracture resolved M 2024 3:15pm Multiple falls resolved April 3:15pm Urinary tract infection resolved M 2024 3:15pm Cervical myelopathy inactive April 27, 2024 3:15pm Constipation acute May 25, 2024 12:30pm Fecal incontinence acute May 25, 2024 12:30pm Status post cervical spinal fusion acute June 01, 2024 3:28pm Cervical myelopathy inactive June 01, 2024 3:28pm [facility] Work Phone: 1([phone]) 262-750103-13-2025 Progress note [facility] Medical Records Department [address] [place] [address] Progress Note - Hospitalist 04/20/24 0752 MR#: [id number] Acct: [id number] Name: YAS ROSA Brigido Rep #:[id number] : 1940 83 From: Keanu Alfred DO PCP: Dr. Kwabena Menjivar MD Status :ADM IN Location: [place] [address] Reason for Visit Reason for Visit: Diagnoses Conjunctival hemorrhage, unspecified eye (04/19/24) Other symptoms and signs involving the musculoskeletal system (04/19/24) Syncope and collapse (04/19/24) Maxillary fracture, left side, initial encounter for closed fracture (04/19/24) Subjective Subjective Denies visual changes. Dizzy with change in position. Objective Data Objective Data Vital Signs: Vital Signs Temp Pulse Resp BP Pulse Ox O2 Del Method 36.7 C 67 16 119/66 98 Room Air 04/20/24 03:15 04/20/24 03:15 04/20/24 03:15 04/20/24 03:15 04/20/24 03:15 04/20/24 03:15 Oxygen Delivery Method Room Air Weight: 71.6 kg Body Mass Index (BMI) 24.0 Intake & Output: Intake and Output for Last 24 Hours 04/18/24 04/19/24 04/20/24 23:59 23:59 23:59 Intake Total 450 / 450 Output Total 500 / 500 Balance -50 / -50 Lab / Micro Data 04/20/24 05:25 04/19/24 10:50 Labs: Laboratory Results - last 24 hr 04/19/24 10:50: WBC 14.4 H, RBC 5.34, Hgb 16.0, Hct 45.5, MCV 85.2, MCH 30.0, MCHC 35.2, RDW Std Deviation 37.7, RDW Coeff of Delia 12.3, Plt Count 216, MPV 8.6, Immature Gran % (Auto) 0.500, Neut % (Auto) 83.7 H, Lymph % (Auto) 9.8 L, [place] % (Auto) 5.7, Eos % (Auto) 0.0, Baso % (Auto) 0.3, Absolute Neuts (auto) 12.1 H, Absolute Lymphs (auto) 1.41, Nucleated RBC % 0, PT 13.5, INR 1.0, APTT 23.4 L, Sodium 137, Potassium 3.6, Chloride 98, Carbon Dioxide 22.0, Anion Gap 17 H, BUN 20 H, Creatinine 0.92, Estim Creat Clear Calc 59.89, Est GFR (MDRD) Non-Af 83, BUN/Creatinine Ratio 21.7 H, Glucose 152H, Calcium 9.5, Troponin T High Sens 31 H 04/19/24 10:57: POC Glucose 143 H 04/19/24 15:48: Troponin T High Sens 31 H 04/19/24 17:25: Troponin T Hi Sens 2 Hr 30 H 04/19/24 21:15: Troponin T Hi Sens 4Hr 35 H 04/20/24 05:25: WBC 11.9 H, RBC 4.47 L, Hgb 13.2, Hct 38.5 L, MCV 86.1, MCH 29.5, MCHC 34.3, RDW Std Deviation 39.5, RDW Coeff of Delia 12.7, Plt Count 216, MPV 8.9, Immature Gran % (Auto) 0.300, Neut % (Auto) 73.5 H, Lymph % (Auto) 17.6L, [place] % (Auto) 8.4, Eos % (Auto) 0.1, Baso % (Auto) 0.1, Absolute Neuts (auto)8.7 H, Absolute Lymphs (auto) 2.09, Nucleated RBC % 0 Radiography Diagnostic Testing: Radiology Impression Brain CT 04/19/24 10:40 IMPRESSION: Cerebral atrophy. Small scalp hematoma overlying the left posterior parietal occipital bone. The results were communicated to the referring physician. One or more dose reduction techniques were used (e.g., Automated exposure control, adjustment of the mA and/or kV according to patient size, use of iterative reconstruction technique). Reading Location: [facility] Facial/Sinus 04/19/24 10:42 IMPRESSION: Mildly depressed fracture of the lateral wall of the left maxillary sinus extending to the anterioraspect laterally with opacification of the left maxillary sinus. Air is seen within the overlying soft tissues. There is evidence of soft tissue swelling overlying the left orbital and left maxillary region. One or more dose reduction techniques were used (e.g., Automated exposure control, adjustment of the mA and/or kV according to patient size, use of iterative reconstruction technique). Reading Location: [facility] Head/Neck CTA 04/19/24 10:54 IMPRESSION: RIGHT CAROTID: Unremarkable LEFT CAROTID: Minimal plaque at the origin of the left internal carotid artery. VERTEBRALS: Unremarkable INTRACRANIAL: Unremarkable. One or more dose reduction techniques were used (e.g., Automated exposure control, adjustment of the mA and/or kV according to patient size, use of iterative reconstruction technique). Reading Location: [facility] Chest X-Ray 04/19/24 11:20 IMPRESSION: 1. No visible acute cardiopulmonary findings. 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 Consider outpatient CT chest. 2. Additional description as above. Reading Location: [facility] Brain MRI 04/19/24 15:02 IMPRESSION: 1. No acute intracranial abnormality, specifically no evidence of acute ischemia. 2. Mild atrophy and chronic small-vessel ischemic changes. 3. Acute left facial bone fractures better seen and described on recent facial bone CT. Reading [facility] Cervical Spine MRI 04/19/24 15:02 IMPRESSION: 1. 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 2. Acquired mild to severe multilevel foraminal narrowing. See level by level comments above. 3. 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 Reading Location: [facility] Physical Exam Const alert and no apparent distress HEENT HEENT Narrative: left lower eyelid ecchymosis. subconjunctival hemorrhage. no hyphema. Eyes EOMs intact bilaterally Resp normal respiratory effort GI normal to inspection, nondistended, normoactive bowel sounds, soft to palpation,non-tender and non-distended Extremity normal to inspection and full ROM Assessment & Plan Assessment/Plan (1) Syncope: PLAN: The may have been due to the vertigo related with the dizziness. Patient at actually more of a near syncopal episode where he just felt so dizzy hit his head. May be some postconcussion syndrome. Will check an echocardiogram given this dizziness he has been having over the past couple months. Additionally check orthostatic vital signs and monitor on telemetry. He may have BPPV. Add PRN meclizine. (2) Maxillary fracture, left side, initial encounter for closed fracture: PLAN: Secondary to fall. Coservative mgmt. Dr. Godinez's input apprecriated. No blowing nose, nor sleeping on his left side. (3) Subconjunctival hemorrhage: PLAN: 2/2 to fall. Visual andrews intact, PERRL, EOMI. No hyphema. Supportive mgmt at this time. No optho needed at this time. (4) Left arm weakness: PLAN: ongoing for years (unable to flex right shoulder, but this seems to be dueto rotator cuff injury/tear). MRI brain showed no CVA. 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 Acquired mildto severe multilevel foraminal narrowing. 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 And within thebody is mentioned at C4-5 severe spinal stenosis with marked mass effect on the left cord. At C5-6 moderate spinal stenosis and severe right and moderate/severe left foraminal narrowing. C6-7 severe right and moderate left foraminal narrowing. Given the fact that this been ongoing for years is likely chronic. Will start steroids and consult spine surgery. PLAN: Plan VTE prophylaxis with SCDs Charges/Coding Visit Charges Inpatient E&M: 00331 Subs Hosp L2 04/20/24 1257 Cosigner Signature (if applicable): CC: ~ Signed ADDENDUM by Dr. Keanu Alfred, on 04/20/24 at 1357 Addendum Advance care planning: Spent an additional 20 minutes discussing with the patient and his significant other about CODE STATUS. Was notified by nursing force inform us that the patient wanted change his CODE STATUS from DNR Comfort Care arrest to full code. I went and talked to the patient explainedthe different CODE STATUS with him. Explained CPR with him and emphasizing that many times people who survive CPR, which is low, that they wind up being on a ventilator. I told him that we will express his wishes and make him full code but I did encourage him and his spouse to discuss at a later time as they get older when with doing CPR be futile. Procedures Hospitalists Procedures: 26481 Advncd Care Plan 30 Min 04/20/24 1357 Cosigner Signature (if applicable): cc: ~* Signed [facility]03-12-2025 Discharge summary Author Laureano [place] [facility] Note Date/Time April 19, 2024 3:2 7pm [facility] Medical Records Department [address] [place] [address] Emergency Department Summary 04/19/24 MR#: [id number] Acct: [id number] Name: YAS ROSA Rep #:[id number] : 1940 83 From: Laureano Colby PCP: Dr. Kwabena Menjivar MD Status :ADM IRINA Location: [place] [address] HPI History of Present Illness Chief Complaint: Stroke Alert Informant: patient and EMS Narrative Narrative: 83-year-old male arriving to the emergency room with the chief complaint of prehospital stroke alert. Patient states that he went to bed at 2105 hrs. last night and felt fine. Reportedly got up to use the bathroom this morning and fell. EMS notes bruising to the right or left periorbital region and a bloody nose. Patient notes chronic pain in the left shoulder limiting mobility. EMS notes left-sided weakness. Patient states he does not take any blood thinners. He denies headache. He does admit to neck pain. [facility] Medical History Irritable bowel syndrome with diarrhea Loss of hearing Wears glasses Wears dentures Alcohol use Arthritis Syncope History of IBS Heartburn Former smoker History of stress test Diarrhea Depression Home Medications ?Medication ?Instructions ?Recorded ?Last Taken ?Type NK 02/26/24 Unknown History Allergy/AdvReac Type Severity Reaction Status Date / Time No Known Allergies Allergy Verified 04/19/24 11:00 Surgical History Hx of colonoscopy History of tonsillectomy and adenoidectomy History of appendectomy Social History household members: none housing: apartment Smoking Status: Former smoker alcohol intake: current alcohol intake frequency: holidays/special occasions only substance use type: does not use ROS ROS ED Constitutional Constitutional ED: Denies chills, fever(s) or weight loss Eyes Eyes: Denies change in vision or diplopia ENT ENT ED: Reports other Details: Bloody nose left periorbital swelling/contusion ; Denies ear pain, rhinorrhea or sore throat Cardiovascular Cardiovascular: Denies chest pain, orthopnea, palpitations or racing heartbeat Respiratory/Chest Respiratory/Chest: Denies cough, dyspnea or orthopnea Gastrointestinal Gastrointestinal: Denies abdominal pain, diarrhea, nausea or vomiting Genitourinary Genitourinary ED: Denies dysuria, hematuria or urinary frequency Musculoskeletal Musculoskeletal: Reports neck pain and other Details: Chronic left shoulder pain; Denies arthralgias, back pain or myalgias Integumentary Denies abscess or rash Neurologic Neurologic: Denies headache(s), paresthesias or weakness Psychiatric Psychiatric: Denies anxiety, depression, suicidal ideation or suicidal thoughts Endocrine Endocrinology: Denies polydipsia, polyphagia or polyuria Allergic/Immunologic Allergic/Immunologic ED: Denies mouth swelling, tongue swelling or urticaria EXAM Physical Exam Const Vital Signs: 04/19/24 10:41 04/19/24 10:42 04/19/24 10:44 Temperature 98 F Temperature Source Temporal Pulse Rate 77 96 Respiratory Rate 18 18 Blood Pressure 180/87 H 193/133 H Blood Pressure Mean 118 153 Pulse Ox 100 93 Oxygen Delivery Method Room Air Room Air 04/19/24 10:56 04/19/24 10:57 04/19/24 11:40 Temperature Temperature Source Pulse Rate 73 67 Respiratory Rate 16 15 Blood Pressure 179/96 H 167/90 H Blood Pressure Mean 123 115 Pulse Ox 100 100 98 Oxygen Delivery Method Room Air Room Air 04/19/24 12:00 Temperature Temperature Source Pulse Rate Respiratory Rate Blood Pressure 136/80 H Blood Pressure Mean 98 Pulse Ox Oxygen Delivery Method Positive well nourished and well developed General Appearance ED: well developed and NAD HEENT Reports normocephalic, TM's clear and moist mucous membranes Nose: other Other Details: Tender to palpation nose dried blood and left maxillascalp hematoma on the occiput Tympanic Membrane ED: Yes TM's clear Eyes PERRL and EOMs intact bilaterally Eyes Narrative: Evidence of subconjunctival hemorrhage. There is no hyphema. Neck no lymphadenopathy, supple and no JVD Resp normal respiratory effort and clear to auscultation bilaterally Cardio regular rate, regular rhythm and no murmurs GI normal to inspection, nondistended, normoactive bowel sounds and non-tender Palpation: soft Back/Spine no CVA tenderness and normal ROM Extremity Extremity Narrative: I am able to range the shoulder but it is painful for him. No obvious dislocation. He has good handgrip. Normal sensation. General Extremety ED: Negative for edema General Extremity: Negative for edema Neuro oriented x3 and CN's II-XII intact bilaterally Sensorium / Orientation: alert Speech: speech normal Sensory Exam: No sensory level loss detected Psych mental status grossly normal Mood & Affect: Negative for depressed or tearful Skin no rashes or lesions noted and no wounds MDM MDM MDM Narrative Medical decision making narrative: Differential diagnosis includes facial fracture skull fracture intracranial hemorrhage stroke cervical spine fracture shoulder fracture I met the patient in the ambulance bay and directed them after my initial evaluation to CT imaging. His NIH is 3 giving points for the weakness of the left arm. Patient tells me that depending on the day he may not be able to movemuch of the left arm. He is able to squeeze my hand however. I do not appreciate sensory drops. Because that is my only finding of stroke a stroke team was canceled. However this did not get relayed to [facility] and they did being in for their evaluation and I spoke with the neurologist. We do not see an LVO and do not feel that he is a TNK or retrieval candidate. White count returned slightly elevated 14.4 troponin [address] of the head demonstrates an occipital scalp hematoma. Facial CT demonstrates a left maxillary fracture. My independent interpretation of the chest x-ray is no acute process please see radiologist read for full details. CTA of the head andneck does not demonstrate an LVO or dissection. No obvious spinal fracture is noted (discussed with radiologist). Blood pressure has come down currently 136/80. I spoke with Dr. Godinez for plastic surgery. Maxillary fracture will be treated nonoperatively with elevation of the head of bed Afrin as needed for bleeding and he will see the patient in the hospital. Plan of care will be admission into hospital. History & Record Review Discussion w/independent historian: EMS personnel and Patient Lab Data Attestation: I reviewed the patient's lab results. Labs: Laboratory Results - last 24 hr 04/19/24 04/19/24 10:50 10:57 WBC 14.4 H RBC 5.34 Hgb 16.0 Hct 45.5 MCV 85.2 MCH 30.0 MCHC 35.2 RDW Std Deviation 37.7 RDW Coeff of Delia 12.3 Plt Count 216 MPV 8.6 Immature Gran % (Auto) 0.500 Neut % (Auto) 83.7 H Lymph % (Auto) 9.8 L [place] % (Auto) 5.7 Eos % (Auto) 0.0 Baso % (Auto) 0.3 Absolute Neuts (auto) 12.1 H Absolute Lymphs (auto) 1.41 Nucleated RBC % 0 PT 13.5 INR 1.0 APTT 23.4 L Sodium 137 Potassium 3.6 Chloride 98 Carbon Dioxide 22.0 Anion Gap 17 H BUN 20 H Creatinine 0.92 Estim Creat Clear Calc 59.89 Est GFR (MDRD) Non-Af 83 BUN/Creatinine Ratio 21.7 H Glucose 152 H Calcium 9.5 Troponin T High Sens 31 H POC Glucose 143 H Radiography Diagnostic Testing: Clinical Impression(s) from Imaging Studies Brain CT 04/19/24 10:40 IMPRESSION: Cerebral atrophy. Small scalp hematoma overlying the left posterior parietal occipital bone. The results were communicated to the referring physician. One or more dose reduction techniques were used (e.g., Automated exposure control, adjustment of the mA and/or kV according to patient size, use of iterative reconstruction technique). Reading Location: [facility] Facial/Sinus 04/19/24 10:42 IMPRESSION: Mildly depressed fracture of the lateral wall of the left maxillary sinus extending to the anterior aspect laterally with opacification of the left maxillary sinus. Air is seen within the overlying soft tissues. There is evidence of soft tissue swelling overlying the left orbital and left maxillary region. One or more dose reduction techniques were used (e.g., Automated exposure control, adjustment of the mA and/or kV according to patient size, use of iterative reconstruction technique). Reading Location: [place] [address] Head/Neck CTA 04/19/24 10:54 IMPRESSION: RIGHT CAROTID: Unremarkable LEFT CAROTID: Minimal plaque at the origin of the left internal carotid artery. VERTEBRALS: Unremarkable INTRACRANIAL: Unremarkable. One or more dose reduction techniques were used (e.g., Automated exposure control, adjustment of the mA and/or kV according to patient size, use of iterative reconstruction technique). Reading Location: [place] [address] Chest X-Ray 04/19/24 11:20 IMPRESSION: 1. No visible acute cardiopulmonary findings. 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 Consider outpatient CT chest. 2. Additional description as above. Reading Location: [id number] EKG Initial EKG: Attestation: I personally reviewed and interpreted this EKG as follows: Comments: Normal sinus rhythm ventricular rate of 69 bpm Management Discussion w/another healthcare provider: Hospitalist (Dr Alfred) and [employer] [facility] (Dr Godinez) Discharge Plan Dx/Rx/DC Orders Clinical Impression: Fall, Closed fracture of left maxillary sinus, Epistaxis, Chronic left shoulderpain, Hypertension, Subconjunctival hemorrhage Disposition Disposition: Acute Care Hospital [facility] NIHSS NIHSS 1a. Level of Consciousness: Alert; keenly responsive 1b. LOC Questions: Answers BOTH questions correctly. 1c. LOC Commands: Performs both tasks correctly. 2. Best Gaze: Normal 3. Visual: No visual loss 4. Facial Palsy: Normal symmetrical movements 5a. Left Arm: No effort against gravity; arm falls 5b. Right Arm: No drift; arm holds 90 (or 45) degrees for full 10 seconds 6a. Left Leg: No drift; leg holds 30-degree position for full 5 seconds 6b. Right Leg: No drift; leg holds 30-degree position for full 5 seconds 7. Limb Ataxia: Absent 8. Sensory: Normal; no sensory loss 9. Best Language: No aphasia; normal 10. Dysarthria: Normal 11. Extinction and Inattention: No abnormality Total: 3 What to do if you have Problems For any increased pain, shortness of breath, bleeding, nausea or vomiting, chestpain, or any unexpected problems, contact your Primary Care Provider. Call [facility] ([phone]) or report to the closest Emergency Room. Call 911 if necessary. 04/19/24 1527 <Electronically signed by Laureano Gallagher DO> Cosigner Signature (if applicable): CC: Dr. Kwabena Menjivar MD ~ Signed [facility] Work Phone: 1(639) 738-276803-12-2025 Consult note Author [facility] Note Date/Time April 19, 2024 3:1 8pm [facility] Medical Records Department [address] [place] [address] Consultation - Surgical 04/19/24 1140 MR#: [id number] Acct: [id number] Name: YAS ROSA Rep #:[id number] : 1940 83 From: Yas Godinez MD PCP: Dr. Kwabena Menjivar MD Status :ADM IRINA Location: [place] [address]- Assessment & Plan Assessment/Plan (1) Maxillary fracture, left side, initial encounter for closed fracture: PLAN: Anticipate non-operative management No nose blowing Afrin for nose bleeds Head of bed elevated to 45 or greater as tolerated for 1 week for swelling [facility] will arrange 1 week f/u HPI Consult Data Date of Consult: 04/19/24 HPI Narrative HPI Narrative: YAS ROSA is a 83 M who presents with a left face maxillary fracture after a fall from standing earlier this morning (reports that he's been less steady on his feet lately). He is being admitted to medicine for a fall work up. He has asmall scalp hematoma in the vertex of his scalp as well. He is not on blood thinner. Reports normal occlusion and vision. No double vision. No loose or missing teeth. Left cheek is numb since the injury. Able to breathe through nose. CT neck demonstrated no cervical spine fractures and he is non-tender on C spine(C spine cleared by ED). CTA with minimal plaque on left carotid, but otherwise unremarkable. He reports a history of neck pain but no new neck pain. Not a smoker Broke his nose a few weeks ago with another fall. [facility] Medical History Anxiety Irritable bowel syndrome with diarrhea Loss of hearing Wears glasses Wears dentures Alcohol use Arthritis Syncope History of IBS Heartburn Former smoker History of stress test Diarrhea Depression Home Medications ?Medication ?Instructions ?Recorded ?Last Taken ?Type NK 02/26/24 Unknown History Allergy/AdvReac Type Severity Reaction Status Date / Time No Known Allergies Allergy Verified 04/19/24 11:00 Surgical History Hx of colonoscopy History of tonsillectomy and adenoidectomy History of appendectomy Social History household members: none housing: apartment Smoking Status: Former smoker alcohol intake: current alcohol intake frequency: holidays/special occasions only substance use type: does not use Physical Exam Narrative Cranial nerve exam: Cranial nerve II: visual acuity intact Cranial nerves III, IV and : extraocular movements intact, no diplopia with extraocular movements. Cranial nerve V: sensation to light touch intact in all 3 distributions of cranial nerve five Except for left cheek numbness Cranial nerve VII: Patient is able to raise eyebrows, closes eyes, smile, purse lips, and move his lower lip to show his lower teeth symmetrically on both sides. Able to stick out their tongue Edentulous with upper maxillary partial, No loose or missing teeth, no bleeds inthe mouth Left subconjunctival hemorrhage Periorbital bruising Normal occlusion, slight pain with opening mouth widely on the left, but able to open completely No septal hematoma No TTP of the forehead, orbits, nasal bridge, alveolus or mandible. Const alert and oriented x3 Lab / Micro Data 04/19/24 10:50 04/19/24 10:50 Labs: Laboratory Results - last 24 hr 04/19/24 10:50: WBC 14.4 H, RBC 5.34, Hgb 16.0, Hct 45.5, MCV 85.2, MCH 30.0, MCHC 35.2, RDW Std Deviation 37.7, RDW Coeff of Delia 12.3, Plt Count 216, MPV 8.6, Immature Gran % (Auto) 0.500, Neut % (Auto) 83.7 H, Lymph % (Auto) 9.8 L, [place] % (Auto) 5.7, Eos % (Auto) 0.0, Baso % (Auto) 0.3, Absolute Neuts (auto) 12.1 H, Absolute Lymphs (auto) 1.41, Nucleated RBC % 0, PT 13.5, INR 1.0, APTT 23.4 L, Sodium 137, Potassium 3.6, Chloride 98, Carbon Dioxide 22.0, Anion Gap 17 H, BUN 20 H, Creatinine 0.92, Estim Creat Clear Calc 59.89, Est GFR (MDRD) Non-Af 83, BUN/Creatinine Ratio 21.7 H, Glucose 152 H, Calcium 9.5, Troponin T High Sens 31 H 04/19/24 10:57: POC Glucose 143 H Imaging Radiology Impression Brain CT 04/19/24 10:40 IMPRESSION: Cerebral atrophy. Small scalp hematoma overlying the left posterior parietal occipital bone. The results were communicated to the referring physician. One or more dose reduction techniques were used (e.g., Automated exposure control, adjustment of the mA and/or kV according to patient size, use of iterative reconstruction technique). Reading Location: [facility] Facial/Sinus 04/19/24 10:42 IMPRESSION: Mildly depressed fracture of the lateral wall of the left maxillary sinus extending to the anterior aspect laterally with opacification of the left maxillary sinus. Air is seen within the overlying soft tissues. There is evidence of soft tissue swelling overlying the left orbital and left maxillary region. One or more dose reduction techniques were used (e.g., Automated exposure control, adjustment of the mA and/or kV according to patient size, use of iterative reconstruction technique). Reading Location: [facility] Head/Neck CTA 04/19/24 10:54 IMPRESSION: RIGHT CAROTID: Unremarkable LEFT CAROTID: Minimal plaque at the origin of the left internal carotid artery. VERTEBRALS: Unremarkable INTRACRANIAL: Unremarkable. One or more dose reduction techniques were used (e.g., Automated exposure control, adjustment of the mA and/or kV according to patient size, use of iterative reconstruction technique). Reading Location: [facility]- Chest X-Ray 04/19/24 11:20 IMPRESSION: 1. No visible acute cardiopulmonary findings. 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 Consider outpatient CT chest. 2. Additional description as above. Reading Location: [id number] Charges/Coding Multi Select Codes Visit Charges Office Visit/Consults: 04948 OV L5 New 60min 04/19/24 1518 <Electronically signed by Yas Godinez MD> Cosigner Signature (if applicable): CC: Dr. Kwabena Menjivar MD~ Signed [facility] Work Phone: 1([phone] 120-583203-12-2025 History and physical note Author Keanu Alfred [facility] Note Date/Time April 19, 2024 2:0 4pm [facility] Medical Records Department [address] [place] [address] H&P Exam - Hospitalist 04/19/24 1323 MR#: [id number] Acct: [id number] Name: YAS ROSA Rep #:[id number] : 1940 83 From: Keanu Alfred DO PCP: Dr. Kwabena Menjivar MD Status :ADM IRINA Location: [id number] HPI - General General Date of Admission: 04/19/24 Date of Service: 04/19/24 Chief Complaint: fall. HPI Narrative YAS ROSA, is a 83 M who presents with a fall. Patient was in bathroom this morning washing his hands where he felt dizzy. He sat at the edge of the tub and then passed out. He hit his head and presented to the emergency room. Stroke team was called due to left upper extremity weakness. Patient states that he has had left upper extremity weakness that is been ongoing for roughly 2years. He states that he has been feeling dizzy over the past couple months particular when he does anything. Usually thing that makes it better is when he stays still but worse when he actually moves. So patient underwent a CTA of the head and neck that showed minimal atherosclerotic disease. Head CT showed cerebellar atrophy, small scalp hematoma overlying the left posterior parietal occipital bone. Facial sinus CT showed mildly depressed fracture of the lateralwall of the left maxillary sinus extending to the anterior aspect laterally withopacification of the left maxillary sinus. Air seen within the overlying soft tissues. Patient was seen by [facility] teleneurology who did not feel patient actually had a stroke given his chronic weakness of his left upper extremity. Patient has been told by his primary care doctor that it is likely due to something in his neck contribute to that. Patient states he is been having his dizziness for about 2 months but has not notified any of his providers. Hospital service was contacted for admission. Prior to contacting the hospital service plastics surgery was consulted and is put in the note but the the patient states that he has not seen the surgeon yet. [facility] Medical History (Updated 04/19/24 @ 13:[address] Keanu Alfred, ) Irritable bowel syndrome with diarrhea Loss of hearing Wears glasses Wears dentures Alcohol use Arthritis Syncope History of IBS Heartburn Former smoker History of stress test Diarrhea Depression Home Medications ?Medication ?Instructions ?Recorded ?Last Taken ?Type NK 02/26/24 Unknown History Allergy/AdvReac Type Severity Reaction Status Date / Time No Known Allergies Allergy Verified 04/19/24 11:00 Surgical History Hx of colonoscopy History of tonsillectomy and adenoidectomy History of appendectomy Social History household members: none housing: apartment Smoking Status: Former smoker alcohol intake: current alcohol intake frequency: holidays/special occasions only substance use type: does not use ROS ROS Narrative Denies any diplopia, no blurred vision. All review of systems were negative except as mentioned above in the history of present illness and the other reviewof systems. Vital Signs Vital Signs Vital Signs: 04/19/24 10:41 04/19/24 10:42 04/19/24 10:44 Temperature 36.6 C Temperature Source Temporal Pulse Rate 77 96 Respiratory Rate 18 18 Blood Pressure 180/87 H 193/133 H Blood Pressure Mean 118 153 Pulse Ox 100 93 Oxygen Delivery Method Room Air Room Air 04/19/24 10:56 04/19/24 10:57 04/19/24 11:40 Temperature Temperature Source Pulse Rate 73 67 Respiratory Rate 16 15 Blood Pressure 179/96 H 167/90 H Blood Pressure Mean 123 115 Pulse Ox 100 100 98 Oxygen Delivery Method Room Air Room Air 04/19/24 12:00 04/19/24 13:05 Temperature 36.6 C Temperature Source Pulse Rate 65 Respiratory Rate 16 Blood Pressure 136/80 H 133/75 H Blood Pressure Mean 98 94 Pulse Ox 99 Oxygen Delivery Method Weight Weight: 71.5 kg Body Mass Index (BMI) 23.9 Physical Exam Const alert and no apparent distress HEENT HEENT Narrative: Ecchymosis and swelling of the left lower eyelid extending over the cheek. Patient has injection of the cornea of the left eye. No evidence of any hyphema. Eyes PERRL and EOMs intact bilaterally Eyes Narrative: Visual andrews intact peripherally. Neck no lymphadenopathy and no JVD Resp normal respiratory effort, no retractions, no use of accessory muscles and clearto auscultation bilaterally GI normal to inspection, nondistended, normoactive bowel sounds, soft to palpation,non-tender, non-distended and hepatosplenomegaly Extremity normal to inspection and full ROM Neuro oriented x3 and moves all extremities Neuro Narrative: Mo strength 4:55 in the AM right upper extremity but patient has difficulty flexing his right shoulder but strength in his right hand is intact. Strength in the left hand is very diminished and patient is unable to fully extend any ofhis fingers most prominently his third and fourth fingers. Muscle strength is 5-5 in lower extremities bilaterally. Sensorium / Orientation: awake and alert Psych Psych Narrative: Flat affect. Results Lab / Micro Data Attestation: I reviewed the patient's lab results. 04/19/24 10:50 04/19/24 10:50 Labs: Laboratory Results - last 24 hr 04/19/24 10:50: WBC 14.4 H, RBC 5.34, Hgb 16.0, Hct 45.5, MCV 85.2, MCH 30.0, MCHC 35.2, RDW Std Deviation 37.7, RDW Coeff of Delia 12.3, Plt Count 216, MPV 8.6, Immature Gran % (Auto) 0.500, Neut % (Auto) 83.7 H, Lymph % (Auto) 9.8 L, [place] % (Auto) 5.7, Eos % (Auto) 0.0, Baso % (Auto) 0.3, Absolute Neuts (auto) 12.1 H, Absolute Lymphs (auto) 1.41, Nucleated RBC % 0, PT 13.5, INR 1.0, APTT 23.4 L, Sodium 137, Potassium 3.6, Chloride 98, Carbon Dioxide 22.0, Anion Gap 17 H, BUN 20 H, Creatinine 0.92, Estim Creat Clear Calc 59.89, Est GFR (MDRD) Non-Af 83, BUN/Creatinine Ratio 21.7 H, Glucose 152 H, Calcium 9.5, Troponin T High Sens 31 H 04/19/24 10:57: POC Glucose 143 H Imaging Radiology Impression Brain CT 04/19/24 10:40 IMPRESSION: Cerebral atrophy. Small scalp hematoma overlying the left posterior parietal occipital bone. The results were communicated to the referring physician. One or more dose reduction techniques were used (e.g., Automated exposure control, adjustment of the mA and/or kV according to patient size, use of iterative reconstruction technique). Reading Location: [facility] Facial/Sinus 04/19/24 10:42 IMPRESSION: Mildly depressed fracture of the lateral wall of the left maxillary sinus extending to the anterior aspect laterally with opacification of the left maxillary sinus. Air is seen within the overlying soft tissues. There is evidence of soft tissue swelling overlying the left orbital and left maxillary region. One or more dose reduction techniques were used (e.g., Automated exposure control, adjustment of the mA and/or kV according to patient size, use of iterative reconstruction technique). Reading Location: [facility] Head/Neck CTA 04/19/24 10:54 IMPRESSION: RIGHT CAROTID: Unremarkable LEFT CAROTID: Minimal plaque at the origin of the left internal carotid artery. VERTEBRALS: Unremarkable INTRACRANIAL: Unremarkable. One or more dose reduction techniques were used (e.g., Automated exposure control, adjustment of the mA and/or kV according to patient size, use of iterative reconstruction technique). Reading Location: [facility] Chest X-Ray 04/19/24 11:20 IMPRESSION: 1. No visible acute cardiopulmonary findings. 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 Consider outpatient CT chest. 2. Additional description as above. Reading Location: [id number] Assessment & Plan Assessment/Plan (1) Syncope: PLAN: The may have been due to the vertigo related with the dizziness. Patient at actually more of a near syncopal episode where he just felt so dizzy hit his head. May be some postconcussion syndrome. Will check an echocardiogram given this dizziness he has been having over the past couple months. Additionally check orthostatic vital signs and monitor on telemetry. He may have BPPV. Add PRN meclizine. (2) Maxillary fracture, left side, initial encounter for closed fracture: PLAN: Secondary to fall. Given that this is displaced and not in the normal scope of practice for hospitalist I have informed ED RN and powerhouse electrician apprentice that patient will need to be seen by surgery in the ED and deemed not a candidate for a trauma center before patient can be accepted here. (3) Subconjunctival hemorrhage: PLAN: 2/2 to fall. Visual andrews intact, PERRL, EOMI. No hyphema. Supportive mgmt at this time. No optho needed at this time. (4) Left arm weakness: PLAN: ongoing for years (unable to flex right shoulder, but this seems to be dueto rotator cuff injury/tear). Concern for radicular. Check MRI brain and cervical spine. Pt and spouse aware that there is no spine surgery available until Wednesday. Charges/Coding Visit Charges Inpatient E&M: 90506 Init Hosp L3 04/19/24 1404 <Electronically signed by Keanu Alfred DO> Cosigner Signature (if applicable): CC: Dr. Kwabena Menjivar MD; Dr. Keanu Alfred DO~ Signed [facility] Work Phone: [phone] 683-186703-12-2025 Discharge summary [facility] Medical Records Department [address] [place] [address] Emergency Department Summary 04/19/24 MR#: [id number] Acct: [id number] Name: YAS ROSA Rep #:[id number] : 1940 83 From: Laureano Colby PCP: Dr. Kwabena Menjivar MD Status :ADM IRINA Location: [address] History of Present Illness Chief Complaint: Stroke Alert Informant: patient and EMS Narrative Narrative: 83-year-old male arriving to the emergency room with the chief complaint of prehospital stroke alert. Patient states that he went to bed at 2105 hrs. last night and felt fine. Reportedly got up to use the bathroom this morning and fell. EMS notes bruising to the right or left periorbital region kia bloody nose. Patient notes chronic pain in the left shoulder limiting mobility. EMS notes left-sided weakness. Patient states he does not take any blood thinners. He denies headache. He does admit to neck pain. [facility] Medical History Irritable bowel syndrome with diarrhea Loss of hearing Wears glasses Wears dentures Alcohol use Arthritis Syncope History of IBS Heartburn Former smoker History of stress test Diarrhea Depression Home Medications ?Medication ?Instructions ?Recorded ?Last Taken ?Type NK 02/26/24 Unknown History Allergy/AdvReac Type Severity Reaction Status Date / Time No Known Allergies Allergy Verified 04/19/24 11:00 Surgical History Hx of colonoscopy History of tonsillectomy and adenoidectomy History of appendectomy Social History household members: none housing: apartment Smoking Status: Former smoker alcohol intake: current alcohol intake frequency: holidays/special occasions only substance use type: does not use ROS ROS ED Constitutional Constitutional ED: Denies chills, fever(s) or weight loss Eyes Eyes: Denies change in vision or diplopia ENT ENT ED: Reports other Details: Bloody nose left periorbital swelling/contusion ; Denies ear pain, rhinorrhea or sore throat Cardiovascular Cardiovascular: Denies chest pain, orthopnea, palpitations or racing heartbeat Respiratory/Chest Respiratory/Chest: Denies cough, dyspnea or orthopnea Gastrointestinal Gastrointestinal: Denies abdominal pain, diarrhea, nausea or vomiting Genitourinary Genitourinary ED: Denies dysuria, hematuria or urinary frequency Musculoskeletal Musculoskeletal: Reports neck pain and other Details: Chronic left shoulder pain; Denies arthralgias, back pain or myalgias Integumentary Denies abscess or rash Neurologic Neurologic: Denies headache(s), paresthesias or weakness Psychiatric Psychiatric: Denies anxiety, depression, suicidal ideation or suicidal thoughts Endocrine Endocrinology: Denies polydipsia, polyphagia or polyuria Allergic/Immunologic Allergic/Immunologic ED: Denies mouth swelling, tongue swelling or urticaria EXAM Physical Exam Const Vital Signs: 04/19/24 10:41 04/19/24 10:42 04/19/24 10:44 Temperature 98 F Temperature Source Temporal Pulse Rate 77 96 Respiratory Rate 18 18 Blood Pressure 180/87 H 193/133 H Blood Pressure Mean 118 153 Pulse Ox 100 93 Oxygen Delivery Method Room Air Room Air 04/19/24 10:56 04/19/24 10:57 04/19/24 11:40 Temperature Temperature Source Pulse Rate 73 67 Respiratory Rate 16 15 Blood Pressure 179/96 H 167/90 H Blood Pressure Mean 123 115 Pulse Ox 100 100 98 Oxygen Delivery Method Room Air Room Air 04/19/24 12:00 Temperature Temperature Source Pulse Rate Respiratory Rate Blood Pressure 136/80 H Blood Pressure Mean 98 Pulse Ox Oxygen Delivery Method Positive well nourished and well developed General Appearance ED: well developed and NAD HEENT Reports normocephalic, TM's clear and moist mucous membranes Nose: other Other Details: Tender to palpation nose dried blood and left maxillascalp hematoma on the occiput Tympanic Membrane ED: Yes TM's clear Eyes PERRL and EOMs intact bilaterally Eyes Narrative: Evidence of subconjunctival hemorrhage. There is no hyphema. Neck no lymphadenopathy, supple and no JVD Resp normal respiratory effort and clear to auscultation bilaterally Cardio regular rate, regular rhythm and no murmurs GI normal to inspection, nondistended, normoactive bowel sounds and non-tender Palpation: soft Back/Spine no CVA tenderness and normal ROM Extremity Extremity Narrative: I am able to range the shoulder but it is painful for him. No obvious dislocation. He has good handgrip. Normal sensation. General Extremety ED: Negative for edema General Extremity: Negative for edema Neuro oriented x3 and CN's II-XII intact bilaterally Sensorium / Orientation: alert Speech: speech normal Sensory Exam: No sensory level loss detected Psych mental status grossly normal Mood & Affect: Negative for depressed or tearful Skin no rashes or lesions noted and no wounds MDM MDM MDM Narrative Medical decision making narrative: Differential diagnosis includes facial fracture skull fracture intracranial hemorrhage stroke cervical spine fracture shoulder fracture I met the patient in the ambulance bay and directed them after my initial evaluation to CT imaging.His NIH is 3 giving points for the weakness of the left arm. Patient tells me that depending on theday he may not be able to movemuch of the left arm. He is able to squeeze my hand however. I do notappreciate sensory drops. Because that is my only finding of stroke a stroke team was canceled. However this did not get relayed to [facility] and they did being in for their evaluation and I spoke with theneurologist. We do not see an LVO and do not feel that he is a TNK or retrieval candidate. White count returned slightly elevated 14.4 trop[address] of the head demonstrates an occipital scalp hematoma. Facial CT demonstrates a left maxillary fracture. My independent interpretation of the chest x-ray is no acute process please see radiologist read for full details. CTA of the head andneck does not demonstrate an LVO or dissection. No obvious spinal fracture is noted (discussed with radiologist). Blood pressure has come down currently 136/80. I spoke with Dr. Godinez for plastic surgery. Maxillary fracture will be treated nonoperatively with elevation of the head of bed Afrin as needed for bleeding and he will see the patient in the hospital. Plan of care will be admission into hospital. History & Record Review Discussion w/independent historian: EMS personnel and Patient Lab Data Attestation: I reviewed the patient's lab results. Labs: Laboratory Results - last 24 hr 04/19/24 04/19/24 10:50 10:57 WBC 14.4 H RBC 5.34 Hgb 16.0 Hct 45.5 MCV 85.2 MCH 30.0 MCHC 35.2 RDW Std Deviation 37.7 RDW Coeff of Delia 12.3 Plt Count 216 MPV 8.6 Immature Gran % (Auto) 0.500 Neut % (Auto) 83.7 H Lymph % (Auto) 9.8 L [place] % (Auto) 5.7 Eos % (Auto) 0.0 Baso % (Auto) 0.3 Absolute Neuts (auto) 12.1 H Absolute Lymphs (auto) 1.41 Nucleated RBC % 0 PT 13.5 INR 1.0 APTT 23.4 L Sodium 137 Potassium 3.6 Chloride 98 Carbon Dioxide 22.0 Anion Gap 17 H BUN 20 H Creatinine 0.92 Estim Creat Clear Calc 59.89 Est GFR (MDRD) Non-Af 83 BUN/Creatinine Ratio 21.7 H Glucose 152 H Calcium 9.5 Troponin T High Sens 31 H POC Glucose 143 H Radiography Diagnostic Testing: Clinical Impression(s) from Imaging Studies Brain CT 04/19/24 10:40 IMPRESSION: Cerebral atrophy. Small scalp hematoma overlying the left posterior parietal occipital bone. The results were communicated to the referring physician. One or more dose reduction techniques were used (e.g., Automated exposure control, adjustment of the mA and/or kV according to patient size, use of iterative reconstruction technique). Reading Location: [facility] Facial/Sinus 04/19/24 10:42 IMPRESSION: Mildly depressed fracture of the lateral wall of the left maxillary sinus extending to the anterioraspect laterally with opacification of the left maxillary sinus. Air is seen within the overlying soft tissues. There is evidence of soft tissue swelling overlying the left orbital and left maxillary region. One or more dose reduction techniques were used (e.g., Automated exposure control, adjustment of the mA and/or kV according to patient size, use of iterative reconstruction technique). Reading Location: [facility] Head/Neck CTA 04/19/24 10:54 IMPRESSION: RIGHT CAROTID: Unremarkable LEFT CAROTID: Minimal plaque at the origin of the left internal carotid artery. VERTEBRALS: Unremarkable INTRACRANIAL: Unremarkable. One or more dose reduction techniques were used (e.g., Automated exposure control, adjustment of the mA and/or kV according to patient size, use of iterative reconstruction technique). Reading Location: [facility] Chest X-Ray 04/19/24 11:20 IMPRESSION: 1. No visible acute cardiopulmonary findings. 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 Consider outpatient CT chest. 2. Additional description as above. Reading Location: [facility] EKG Initial EKG: Attestation: I personally reviewed and interpreted this EKG as follows: Comments: Normal sinus rhythm ventricular rate of 69 bpm Management Discussion w/another healthcare provider: Hospitalist (Dr Alfred) and [employer] (Dr Godinez) Discharge Plan Dx/Rx/DC Orders Clinical Impression: Fall, Closed fracture of left maxillary sinus, Epistaxis, Chronic left shoulderpain, Hypertension, Subconjunctival hemorrhage Disposition Disposition: Acute Care Hospital [facility] NIHSS NIHSS 1a. Level of Consciousness: Alert; keenly responsive 1b. LOC Questions: Answers BOTH questions correctly. 1c. LOC Commands: Performs both tasks correctly. 2. Best Gaze: Normal 3. Visual: No visual loss 4. Facial Palsy: Normal symmetrical movements 5a. Left Arm: No effort against gravity; arm falls 5b. Right Arm: No drift; arm holds 90 (or 45) degrees for full 10 seconds 6a. Left Leg: No drift; leg holds 30-degree position for full 5 seconds 6b. Right Leg: No drift; leg holds 30-degree position for full 5 seconds 7. Limb Ataxia: Absent 8. Sensory: Normal; no sensory loss 9. Best Language: No aphasia; normal 10. Dysarthria: Normal 11. Extinction and Inattention: No abnormality Total: 3 What to do if you have Problems For any increased pain, shortness of breath, bleeding, nausea or vomiting, chestpain, or any unexpected problems, contact your Primary Care Provider. Call [facility] ([phone]) or report tothe closest Emergency Room. Call 911 if necessary. 04/19/24 1527 Cosigner Signature (if applicable): CC: Dr. Kwabena Menjivar MD ~ Signed [facility]03-12-2025 Consult note [facility] Medical Records Department [address] [place] [address] Consultation - Surgical 04/19/24 1140 MR#: [id number] Acct: [id number] Name: YAS ROSA Rep #:[id number] : 1940 83 From: Yas Godinez MD PCP: Dr. Kwabena Menjivar MD Status :ADM [facility] Location: [place] [address] Assessment & Plan Assessment/Plan (1) Maxillary fracture, left side, initial encounter for closed fracture: PLAN: Anticipate non-operative management No nose blowing Afrin for nose bleeds Head of bed elevated to 45 or greater as tolerated for 1 week for swelling [facility] will arrange 1 week f/u HPI Consult Data Date of Consult: 04/19/24 HPI Narrative HPI Narrative: YAS ROSA is a 83 M who presents with a left face maxillary fracture after a fall from standing earlier this morning (reports that he's been less steady on his feet lately). He is being admitted tomedicine for a fall work up. He has asmall scalp hematoma in the vertex of his scalp as well. He isnot on blood thinner. Reports normal occlusion and vision. No double vision. No loose or missing teeth. Left cheek is numb since the injury. Able to breathe through nose. CT neck demonstrated no cervical spine fractures and he is non-tender on C spine(C spine cleared byED). CTA with minimal plaque on left carotid, but otherwise unremarkable. He reports a history of neck pain but no new neck pain. Not a smoker Broke his nose a few weeks ago with another fall. [facility] Medical History Anxiety Irritable bowel syndrome with diarrhea Loss of hearing Wears glasses Wears dentures Alcohol use Arthritis Syncope History of IBS Heartburn Former smoker History of stress test Diarrhea Depression Home Medications ?Medication ?Instructions ?Recorded ?Last Taken ?Type NK 02/26/24 Unknown History Allergy/AdvReac Type Severity Reaction Status Date / Time No Known Allergies Allergy Verified 04/19/24 11:00 Surgical History Hx of colonoscopy History of tonsillectomy and adenoidectomy History of appendectomy Social History household members: none housing: apartment Smoking Status: Former smoker alcohol intake: current alcohol intake frequency: holidays/special occasions only substance use type: does not use Physical Exam Narrative Cranial nerve exam: Cranial nerve II: visual acuity intact Cranial nerves III, IV and : extraocular movements intact, no diplopia with extraocular movements. Cranial nerve V: sensation to light touch intact in all 3 distributions of cranial nerve five Except for left cheek numbness Cranial nerve VII: Patient is able to raise eyebrows, closes eyes, smile, purse lips, and move his lower lip to show his lower teeth symmetrically on both sides. Able to stick out their tongue Edentulous with upper maxillary partial, No loose or missing teeth, no bleeds inthe mouth Left subconjunctival hemorrhage Periorbital bruising Normal occlusion, slight pain with opening mouth widely on the left, but able to open completely No septal hematoma No TTP of the forehead, orbits, nasal bridge, alveolus or mandible. Const alert and oriented x3 Lab / Micro Data 04/19/24 10:50 04/19/24 10:50 Labs: Laboratory Results - last 24 hr 04/19/24 10:50: WBC 14.4 H, RBC 5.34, Hgb 16.0, Hct 45.5, MCV 85.2, MCH 30.0, MCHC 35.2, RDW Std Deviation 37.7, RDW Coeff of Delia 12.3, Plt Count 216, MPV 8.6, Immature Gran % (Auto) 0.500, Neut % (Auto) 83.7 H, Lymph % (Auto) 9.8 L, [place] % (Auto) 5.7, Eos % (Auto) 0.0, Baso % (Auto) 0.3, Absolute Neuts (auto) 12.1 H, Absolute Lymphs (auto) 1.41, Nucleated RBC % 0, PT 13.5, INR 1.0, APTT 23.4 L, Sodium 137, Potassium 3.6, Chloride 98, Carbon Dioxide 22.0, Anion Gap 17 H, BUN 20 H, Creatinine 0.92, Estim Creat Clear Calc 59.89, Est GFR (MDRD) Non-Af 83, BUN/Creatinine Ratio 21.7 H, Glucose 152H, Calcium 9.5, Troponin T High Sens 31 H 04/19/24 10:57: POC Glucose 143 H Imaging Radiology Impression Brain CT 04/19/24 10:40 IMPRESSION: Cerebral atrophy. Small scalp hematoma overlying the left posterior parietal occipital bone. The results were communicated to the referring physician. One or more dose reduction techniques were used (e.g., Automated exposure control, adjustment of the mA and/or kV according to patient size, use of iterative reconstruction technique). Reading Location: [facility] Facial/Sinus 04/19/24 10:42 IMPRESSION: Mildly depressed fracture of the lateral wall of the left maxillary sinus extending to the anterioraspect laterally with opacification of the left maxillary sinus. Air is seen within the overlying soft tissues. There is evidence of soft tissue swelling overlying the left orbital and left maxillary region. One or more dose reduction techniques were used (e.g., Automated exposure control, adjustment of the mA and/or kV according to patient size, use of iterative reconstruction technique). Reading Location: [facility] Head/Neck CTA 04/19/24 10:54 IMPRESSION: RIGHT CAROTID: Unremarkable LEFT CAROTID: Minimal plaque at the origin of the left internal carotid artery. VERTEBRALS: Unremarkable INTRACRANIAL: Unremarkable. One or more dose reduction techniques were used (e.g., Automated exposure control, adjustment of the mA and/or kV according to patient size, use of iterative reconstruction technique). Reading Location: [facility] Chest X-Ray 04/19/24 11:20 IMPRESSION: 1. No visible acute cardiopulmonary findings. 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 Consider outpatient CT chest. 2. Additional description as above. Reading Location: [facility] Charges/Coding Multi Select Codes Visit Charges Office Visit/Consults: 05398 OV L5 New 60min 04/19/24 1518 Cosigner Signature (if applicable): CC: Dr. Kwabena Menjivar MD~ Signed [facility]03-12-2025 History and physical note [facility] Medical Records Department [address] [place] [address] H&P Exam - Hospitalist 04/19/24 1323 MR#: [id number] Acct: [id number] Name: YAS ROSA Rep #:[id number] : 1940 83 From: Keanu Alfred DO PCP: Dr. Kwabena Menjivar MD Status :ADM IRINA Location: [facility] [id number] HPI - General General Date of Admission: 04/19/24 Date of Service: 04/19/24 Chief Complaint: fall. HPI Narrative YAS ROSA, is a 83 M who presents with a fall. Patient was in bathroom this morning washing his hands where he felt dizzy. He sat at the edge of the tub and then passed out. He hit his head and presented to the emergency room. Stroke team was called due to left upper extremity weakness. Patient states that he has had left upper extremity weakness that is been ongoing for roughly 2years. He states that he has been feeling dizzy over the past couple months particular when he does anything. Usually thing that makes it better is when he stays still but worse when he actually moves. So patientunderwent a CTA of the head and neck that showed minimal atherosclerotic disease. Head CT showed cerebellar atrophy, small scalp hematoma overlying the left posterior parietal occipital bone. Facial sinus CT showed mildly depressed fracture of the lateralwall of the left maxillary sinus extending to the anterior aspect laterally withopacification of the left maxillary sinus. Air seen within the overlying soft tissues. Patient was seen by [facility] teleneurology who did not feel patient actually had astroke given his chronic weakness of his left upper extremity. Patient has been told by his primarycare doctor that it is likely due to something in his neck contribute to that. Patient states he isbeen having his dizziness for about 2 months but has not notified any of his providers. Hospital service was contacted for admission. Prior to contacting the hospital service plastics surgery was consulted and is put in the note but the the patient states that he has not seen the surgeon yet. [facility] Medical History (Updated 04/19/24 @ 13:[address] Keanu Alfred, ) Irritable bowel syndrome with diarrhea Loss of hearing Wears glasses Wears dentures Alcohol use Arthritis Syncope History of IBS Heartburn Former smoker History of stress test Diarrhea Depression Home Medications ?Medication ?Instructions ?Recorded ?Last Taken ?Type NK 02/26/24 Unknown History Allergy/AdvReac Type Severity Reaction Status Date / Time No Known Allergies Allergy Verified 04/19/24 11:00 Surgical History Hx of colonoscopy History of tonsillectomy and adenoidectomy History of appendectomy Social History household members: none housing: apartment Smoking Status: Former smoker alcohol intake: current alcohol intake frequency: holidays/special occasions only substance use type: does not use ROS ROS Narrative Denies any diplopia, no blurred vision. All review of systems were negative except as mentioned above in the history of present illness and the other reviewof systems. Vital Signs Vital Signs Vital Signs: 04/19/24 10:41 04/19/24 10:42 04/19/24 10:44 Temperature 36.6 C Temperature Source Temporal Pulse Rate 77 96 Respiratory Rate 18 18 Blood Pressure 180/87 H 193/133 H Blood Pressure Mean 118 153 Pulse Ox 100 93 Oxygen Delivery Method Room Air Room Air 04/19/24 10:56 04/19/24 10:57 04/19/24 11:40 Temperature Temperature Source Pulse Rate 73 67 Respiratory Rate 16 15 Blood Pressure 179/96 H 167/90 H Blood Pressure Mean 123 115 Pulse Ox 100 100 98 Oxygen Delivery Method Room Air Room Air 04/19/24 12:00 04/19/24 13:05 Temperature 36.6 C Temperature Source Pulse Rate 65 Respiratory Rate 16 Blood Pressure 136/80 H 133/75 H Blood Pressure Mean 98 94 Pulse Ox 99 Oxygen Delivery Method Weight Weight: 71.5 kg Body Mass Index (BMI) 23.9 Physical Exam Const alert and no apparent distress HEENT HEENT Narrative: Ecchymosis and swelling of the left lower eyelid extending over the cheek. Patient has injection ofthe cornea of the left eye. No evidence of any hyphema. Eyes PERRL and EOMs intact bilaterally Eyes Narrative: Visual andrews intact peripherally. Neck no lymphadenopathy and no JVD Resp normal respiratory effort, no retractions, no use of accessory muscles and clearto auscultation bilaterally GI normal to inspection, nondistended, normoactive bowel sounds, soft to palpation,non-tender, non-distended and hepatosplenomegaly Extremity normal to inspection and full ROM Neuro oriented x3 and moves all extremities Neuro Narrative: Mo strength 4:55 in the AM right upper extremity but patient has difficulty flexing his right shoulder but strength in his right hand is intact. Strength in the left hand is very diminished and patient is unable to fully extend any ofhis fingers most prominently his third and fourth fingers. Musclestrength is 5-5 in lower extremities bilaterally. Sensorium / Orientation: awake and alert Psych Psych Narrative: Flat affect. Results Lab / Micro Data Attestation: I reviewed the patient's lab results. 04/19/24 10:50 04/19/24 10:50 Labs: Laboratory Results - last 24 hr 04/19/24 10:50: WBC 14.4 H, RBC 5.34, Hgb 16.0, Hct 45.5, MCV 85.2, MCH 30.0, MCHC 35.2, RDW Std Deviation 37.7, RDW Coeff of Delia 12.3, Plt Count 216, MPV 8.6, Immature Gran % (Auto) 0.500, Neut % (Auto) 83.7 H, Lymph % (Auto) 9.8 L, [place] % (Auto) 5.7, Eos % (Auto) 0.0, Baso % (Auto) 0.3, Absolute Neuts (auto) 12.1 H, Absolute Lymphs (auto) 1.41, Nucleated RBC % 0, PT 13.5, INR 1.0, APTT 23.4 L, Sodium 137, Potassium 3.6, Chloride 98, Carbon Dioxide 22.0, Anion Gap 17 H, BUN 20 H, Creatinine 0.92, Estim Creat Clear Calc 59.89, Est GFR (MDRD) Non-Af 83, BUN/Creatinine Ratio 21.7 H, Glucose 152H, Calcium 9.5, Troponin T High Sens 31 H 04/19/24 10:57: POC Glucose 143 H Imaging Radiology Impression Brain CT 04/19/24 10:40 IMPRESSION: Cerebral atrophy. Small scalp hematoma overlying the left posterior parietal occipital bone. The results were communicated to the referring physician. One or more dose reduction techniques were used (e.g., Automated exposure control, adjustment of the mA and/or kV according to patient size, use of iterative reconstruction technique). Reading Location: [facility]-1 Facial/Sinus 04/19/24 10:42 IMPRESSION: Mildly depressed fracture of the lateral wall of the left maxillary sinus extending to the anterioraspect laterally with opacification of the left maxillary sinus. Air is seen within the overlying soft tissues. There is evidence of soft tissue swelling overlying the left orbital and left maxillary region. One or more dose reduction techniques were used (e.g., Automated exposure control, adjustment of the mA and/or kV according to patient size, use of iterative reconstruction technique). Reading Location: [facility]--1 Head/Neck CTA 04/19/24 10:54 IMPRESSION: RIGHT CAROTID: Unremarkable LEFT CAROTID: Minimal plaque at the origin of the left internal carotid artery. VERTEBRALS: Unremarkable INTRACRANIAL: Unremarkable. One or more dose reduction techniques were used (e.g., Automated exposure control, adjustment of the mA and/or kV according to patient size, use of iterative reconstruction technique). Reading Location: [facility]1 Chest X-Ray 04/19/24 11:20 IMPRESSION: 1. No visible acute cardiopulmonary findings. 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 Consider outpatient CT chest. 2. Additional description as above. Reading Location: [facility] Assessment & Plan Assessment/Plan (1) Syncope: PLAN: The may have been due to the vertigo related with the dizziness. Patient at actually more of a near syncopal episode where he just felt so dizzy hit his head. May be some postconcussion syndrome. Will check an echocardiogram given this dizziness he has been having over the past couple months. Additionally check orthostatic vital signs and monitor on telemetry. He may have BPPV. Add PRN meclizine. (2) Maxillary fracture, left side, initial encounter for closed fracture: PLAN: Secondary to fall. Given that this is displaced and not in the normal scope of practice for hospitalist I have informed ED RN and powerhouse electrician apprentice that patient will need to be seen by surgery in the ED and deemed not a candidate for a trauma center before patient can be accepted here. (3) Subconjunctival hemorrhage: PLAN: 2/2 to fall. Visual andrews intact, PERRL, EOMI. No hyphema. Supportive mgmt at this time. No optho needed at this time. (4) Left arm weakness: PLAN: ongoing for years (unable to flex right shoulder, but this seems to be dueto rotator cuff injury/tear). Concern for radicular. Check MRI brain and cervical spine. Pt and spouse aware that thereis no spine surgery available until Wednesday. Charges/Coding Visit Charges Inpatient E&M: 31678 Init Hosp L3 04/19/24 1404 Cosigner Signature (if applicable): CC: Dr. Kwabena Menjivar MD; Dr. Keanu Alfred, ~ Signed [facility]03-12-2025 Radiology Diagnostic study note [facility] Imaging Services [address] [place], [place] [id number] Chest 1 View MR#: [id number] Acct: [id number] Name: YAS ROSA Rep #: [id number] : 1940 M 83 From: Aura Andersen MD PCP: Dr. Kwabena Menjivar MD Status: REG ER Study:Chest 1 View Date of Exam: 5 Exam# [id number] Ordering Dr: Jennie Gallagher DO PROCEDURE: CHEST 1 VIEW (RADCXPA), 04/19/2024 REASON FOR EXAM: NEURO DEFICIT, ACUTE, STROKE SUSPECTED TECHNIQUE: A single portable AP view of the chest was obtained. COMPARISON: 09/18/2020. FINDINGS: Heart: Unremarkable. Mediastinum: Atherosclerosis. Lungs/pleura: Grossly similar mild reticulonodular abnormality in the lung bases. No sizeable pleural effusion or visible pneumothorax. Bones: Demineralization. Lines and support devices: None. RAD/Chest 1 View IMPRESSION: 1. No visible acute cardiopulmonary findings. 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 Consider outpatient CT chest. 2. Additional description as above. Reading Location: [facility] CC: Dr. Kwabena Menjivar MD; Dr. Laureano Gallagher DO ~ Balance Wheel Motion Inspector: Signed [facility]03-12-2025 Radiology Diagnostic study note [facility] Imaging Services [address] [place] [id number] STROKE CTA Head AND Neck W/Con MR#: [id number] Acct: [id number] Name: YAS ROSA Rep #: [id number] : 1940 83 From: Ag Luna MD PCP: Dr. Kwabena Menjivar MD Status: [facility] ER Study:STROKE CTA Head AND Neck W/Con Date of Exam: 04/19/24 Exam# [id number] Ordering Dr: Jennie Gallagher DO PROCEDURE: STROKE CTA HEAD AND NECK W/CON REASON FOR EXAM: STROKE TECHNIQUE: CTA imaging of the head and neck from the aortic arch to the skull vertex with intravenous contrast. 3D reconstructions. CONTRAST: 100 cc of Isovue 370. COMPARISON: Comparison is made with prior CT scan of the head done earlier in the day. FINDINGS: 8.6 mm hypodense nodule in the mid inferior aspect of the enlarged right lobe ofthe thyroid. The left lobe is not seen most likely has been surgically removed. Substernal extension of the right lobe of the thyroid. Aortic Arch: Normal size and branching pattern. Mild atherosclerotic plaque. Brachiocephalic and Subclavians: Unremarkable RIGHT Carotid: Right CCA: Unremarkable. Right ICA: Unremarkable. Right ECA: Unremarkable. LEFT Carotid: Left CCA: Unremarkable. Left ICA: Minimal plaque at the origin of the left internal carotid artery. Maximum stenosis (NASCET): <50 % Left ECA: Unremarkable. Vertebrals: Codominant. Arise from the subclavians. Both vertebrals form the basilar. RIGHT Vertebral: Unremarkable. LEFT Vertebral: Unremarkable. No intracranial aneurysms or large vascular malformations are identified. Anterior cerebral arteries: Unremarkable. Middle cerebral arteries: Unremarkable. Basilar artery: Unremarkable. Posterior cerebral arteries: Unremarkable. Other major branches of the posterior circulation: Unremarkable. Major venous structures: Unremarkable. Other findings: No lymphadenopathy. Lung apices are clear. Known left maxillary fracture with the fluid in the left maxillary sinus and overlying subcutaneous emphysema. Multilevel disc space narrowing of the cervical spine with facet joint osteoarthritis and hypertrophy. CT/STROKE CTA Head AND Neck W/Con IMPRESSION: RIGHT CAROTID: Unremarkable LEFT CAROTID: Minimal plaque at the origin of the left internal carotid artery. VERTEBRALS: Unremarkable INTRACRANIAL: Unremarkable. One or more dose reduction techniques were used (e.g., Automated exposure control, adjustment of the mA and/or kV according to patient size, use of iterative reconstruction technique). Reading Location: [place] [address] CC: Dr. Kwabena Menjivar MD; Dr. Laureano Gallagher DO ~ Balance Wheel Motion Inspector: Signed [facility]03-12-2025 Radiology Diagnostic study note [facility] Imaging Services [address] [place] [address] Sinus/Facial Bone MR#: [id number] Acct: [id number] Name: YAS ROSA Rep #: [id number] : 1940 M 83 From: Ag Luna MD PCP: Dr. Kwabena Menjivar MD Status: REG ER Study:Sinus/Facial Bone Date of Exam: Exam# [id number] Ordering Dr: Jennie Gallagher DO PROCEDURE: SINUS/FACIAL BONE REASON FOR EXAM: TRAUMA TECHNIQUE: CT of the paranasal sinuses without contrast. COMPARISON: Comparison is made with prior CT scan of the brain done earlier in the day. FINDINGS: Frontal: Frontal sinuses and frontoethmoidal recesses appear clear. Ethmoid: Partial opacification of the ethmoid sinuses. Sphenoid: Sphenoid sinuses and sphenoethmoidal recesses appear clear. Maxillary: There is evidence of a fracture along the lateral wall of the left maxillary sinus extending along the anterior wall laterally. Small amount of air is seen within the soft tissues overlying the maxillary region of the face. Turbinates: Unremarkable. Nasal Septum: Midline. No large nasal septal spur. Mastoids/Middle Ears: Clear at visualized levels. Visualized intracranial structures are unremarkable. CT/Sinus/Facial Bone IMPRESSION: Mildly depressed fracture of the lateral wall of the left maxillary sinus extending to the anterioraspect laterally with opacification of the left maxillary sinus. Air is seen within the overlying soft tissues. There is evidence of soft tissue swelling overlying the left orbital and left maxillary region. One or more dose reduction techniques were used (e.g., Automated exposure control, adjustment of the mA and/or kV according to patient size, use of iterative reconstruction technique). Reading Location: [place] [address] CC: Dr. Kwabena Menjivar MD; Dr. Laureano Gallagher DO ~ Balance Wheel Motion Inspector: Signed [facility]03-12-2025 Radiology Diagnostic study note [facility] Imaging Services [address] [place] [address] [id number] STROKE Brain/Head without Cont MR#: [id number] Acct: [id number] Name: YAS ROSA Rep #: [id number] : 1940 M 83 From: Ag Luna MD PCP: Dr. Kwabena Menjivar MD Status: REG ER Study:STROKE Brain/Head without Cont Date of Exam: 04/19/24 Exam# [id number] Ordering Dr: Jennie Gallagher DO PROCEDURE: STROKE BRAIN/HEAD WITHOUT CONT REASON FOR EXAM: NEURO DEFICIT, ACUTE, STROKE SUSPECTED TECHNIQUE: Multiple axial tomographic images were obtained without intravenous contrast administration. Axial and coronal imaging were obtained as well. CONTRAST: None COMPARISON: Comparison is made with prior study dated February 26, 2024. FINDINGS: Small scalp hematoma overlying the posterior left parietal occipital bone. Mild degree of cerebral atrophy. Mild degree of decreased attenuation in the periventricular distribution bilaterally suggestive of small-vessel disease. Atherosclerotic calcification of the cavernous portions of the internal carotid arteries bilaterally. Opacification of the left maxillary sinus with mucosal thickening of the ethmoidsinuses. CT/STROKE Brain/Head without Cont IMPRESSION: Cerebral atrophy. Small scalp hematoma overlying the left posterior parietal occipital bone. The results were communicated to the referring physician. One or more dose reduction techniques were used (e.g., Automated exposure control, adjustment of the mA and/or kV according to patient size, use of iterative reconstruction technique). Reading Location: [place] [address] CC: Dr. Kwabena Menjivar MD; Dr. Laureano Gallagher DO ~ Balance Wheel Motion Inspector: Signed [facility]09-06-2023 Discharge summary Author Keanu Holt [facility] October 14, 2022 10:45am Note Date/Time October 14, 2022 10:45am [facility] Physical Therapy [facility] [address] [place] [address] / REHABILITATION SERVICES DISCHARGE SUMMARY MR#: [id number] Acct: [id number] Name: YAS ROSA Rep #: [id number] : 1940 81 From: Keanu Holt DPT, OCS, CSCS Referring Dr.: Dr. William Menjivar MD Statu s: REG RCR Insurance: MEDICARE PART A B [employer] Discharge Summary D/C summary: It has been my pleasure to treat YAS ROSA referred by Dr. William Menjivar MD, with the diagnosis of B shoulder pain , cervical DDD for a total of 12 visit(s). Discharge Date: 10/14/22 Please see the following information for a summary of their discharge status. Subjective Subjective: No improvement. Both shoulders still hurt, L arm numbness most of time. Legs get numb at times. All these things without warning or reason. Activities are still avoiding shooting sports, has not been able to draw b/c of this. Numbness limits his skill. Pain back pain.: Pain Intensity (Out of 10): 8 B shoulders: Pain Intensity (Out of 10): 4 Overall Improvement % Improvement: 10 Objective Objective/Function: Posture is still extremem forward head and he is try retraction but not having much luck. R shoulder elevation is excellent and full, L shoulder to about 100 and then weak and painful anteriorly. PROM L shoulder full but painful end range. Cervical aROM is limited in retraction, 55 extension and 65 rotations without increased pain. main problems are increasing numbness in arms and R leg and continued spine and L shoulder pain none of which are improving. Goals Goal 1:: patient pain level at rest 2/10 at worst and 75% better in shoulder andneck Goal Progress: Not Progressing Goal 2:: Patient sleep without waking at night Goal Progress: Not Progressing Goal 3:: patient able to move at home without noticing shoulders or neck Goal Progress: R shoulder better only Goal 4:: quick dash score 18 or less Goal Progress: Not Progressing Plan Plan: d/c, back to doctor for next step(MRI neck to further delineate problem?) D/C Information Discharge Comments: Pt to get back with doctor due to lack of improvement for next appropriate medical step. d/c sentence: If there are questions or concerns regarding this patient's physical therapy, please feel free to call me at [phone]. Thank you for the referral of thispatient. Sincerely, Keanu Holt DPT, GINA, NIA Balance/Gait/Functional tests Balance/Special Test Scores Oswestry Neck Score: 31 Quick DASH Score: 38.6350 Improvement % Improvement: 10 <Electronically signed by GINA Arguello DPT, CSCS> 10/14/22 1045 CC: Dr. William Menjivar MD ~ EBG Signed [facility] Work Phone: [phone]) 269-990902-09-2021 NotePatient Outreach (COVAMN) YAS ROSA ([id number]) 1940 M Date Time Provider Department 03/19/20 KIRTS, ROXY HERNÁNDEZ During your visit today, we recorded the following information about you: Allergies As of Date: 03/19/2020 Noted Allergy Reaction IODINE 11/29/2018 5 - Intolerance Comments: Pt will drink oral contrast, BUT DOES NOT EVER WANT IV CONTRAST HE STATES IT MAKES HIS HEART RACE. KMR 11/29/18 LISINOPRIL 11/03/2018 16 - Unknown Date Reviewed: 11/29/2018 Reviewed by: Sylvia Solares Ct - Fully Assessed Order(s):SARS-COVID VACCINE 1ST DOSE APPT [30436PRI] Order #: [id number] FUTURE Prescriptions as of 03/19/2020 Sig: ESCITALOPRAM 10 MG TABLET Take 10 mg by mouth once weston* DOCUSATE SODIUM 100 MG CAPSULE Take 100 mg by mouth once felicia* BUTENAFINE 1 % TOPICAL CREAM Apply 1 application to affect* CITRUCEL (SUCROSE) ORAL Take by mouth. CLOTRIMAZOLE 1 % TOPICAL CREAM Apply 1 application to affect* * NAPROXEN SODIUM 220 MG TABLET Take 1 tablet by mouth once d* * OMEGA-3 FATTY ACIDS-FISH OIL * Take by mouth. Take one(1) c* * COMPOUNDED PRESCRIPTION fiber capsule takes 1 daily i* * MULTIVITAMIN TABLET Take one(1) tablet daily. 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 Note Date/Time April 27, 2024 1:5 7pm [facility] Medical Records Department [address] [place] [address] Discharge Summary 04/27/24 1353 MR#: [id number] Acct: [id number] Name: YAS ROSA Rep #:[id number] : 1940 83 From: Harish Schneider PCP: Dr. Kwabena Menjivar MD Status :ADM IN Location: [facility] KLD881- 1 Providers Date of Admission: 04/20/24 Date of Discharge: 04/27/24 Primary Care Physician: Dr. Kwabena Menjivar MD Consultations 04/19/24 15:02 Consult: Plastic Surgery Routine Consulting Provider: Yas Godinez Reason for Consult: left maxilofacial fracture. EMERGENT Consult: No MD Notified: Yes Date Notified: 04/19/24 Time Notified: 13:21 Method of Notification: ED Physician Initiated 04/20/24 07:57 Consult: Orthopedics Routine Consulting Provider: Ciro Diego Reason for Consult: spinal stenosis with left arm weakness. EMERGENT Consult: No MD Notified: Yes Date Notified: 04/20/24 Time Notified: 09:41 Method of Notification: Text Reason For Visit: SYNCOPE Diagnosis Discharge Diagnosis (1) Syncope: Status: Acute Code(s): R55 - Syncope and collapse Plan: Patient admitted with syncopal episode and fall. Has bruise around left maxillary region and around orbital region. Has chronic weakness of bilateral upper extremity worse than left upper extremity. Complain of numbness of both lower extremity from thigh downwards left worse than right. The may have been vasovagal due to the vertigo related with the dizziness. Patient at actually more of a near syncopal episode where he just felt so dizzy hit his head. Patient has been dizzy for months. Pt was having milder symptoms, but worsened after he fell and hit his head. I suspect he made it worse with the head injury. Suspect BPPV. Dizziness much improved. Schedule meclizine for now. And as needed diazepam. 04/24 patient was dizzy and PT could not move him. Orthostatic blood pressure ordered. Discussed with the orthopedic surgeon. 04/25: Dizziness has resolved but now it is chronic only on standing up. Orthostatic vitals as documented. IV fluid started. Plan for surgery tomorrow. N.p.o. past midnight. 04/27: Patient not having any dizziness. His blood pressure was low yesterday therefore lactated Ringer was given 1 L over 2 hours. (2) Maxillary fracture, left side, initial encounter for closed fracture: Status: Acute Code(s): S02.40DA - Maxillary fracture, left side, initial encounter for closed fracture Plan: Secondary to fall. Coservative mgmt. Dr. Godinez's input apprecriated. No blowing nose, nor sleeping on his left side. Dr. Godinez has no concerns about the patient going to surgery. Just no pressure on the left maxillary sinus. (3) Subconjunctival hemorrhage: Status: Acute Code(s): H11.30 - Conjunctival hemorrhage, unspecified eye Plan: / to fall. Visual andrews intact, PERRL, EOMI. No hyphema. Supportive mgmt at this time. No optho needed at this time. (4) Left arm weakness: Status: Acute Code(s): R29.898 - Other symptoms and signs involving the musculoskeletal system Plan: ongoing for years (unable to flex right shoulder, but this seems to be due to rotator cuff injury/tear). MRI brain showed no CVA. 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 Acquired mild to severe multilevel foraminal narrowing. 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 And within thebody is mentioned at C4-5 severe spinal stenosis with marked mass effect on the left cord. At C5-6 moderate spinal stenosis and severe right and moderate/severe left foraminal narrowing. C6-7 severe right and moderate left foraminal narrowing. Given the fact that this been ongoing for years is likely chronic. Will start steroids and consult spine surgery. DW Dr. Diego, tentative plan for patient to go to surgery on Wednesday. Patient nowin agreement. 04/24: Surgery for today is canceled because of his scheduling/anesthesiology staffing problem. Patient also complained of mild urine retention. Started on Flomax. Bladder scan. 04/25: Patient had C3-C6 anterior cervical discectomy and fusion with plate instrumentation. 04/27: Dressing was soaked with serosanguineous fluid was changed in the morning. Has L[place]roft drain therefore expected drainage. H&H is stable, 13 g/38%. Discussed with Dr. Long. He is stable for discharge. Advised soft minced foodfor the next 5 days. Discharge medication reconciliation done. Discharge follow-up instructions completed. Discharge process discussed with the patient and all questions wereanswered to patient's satisfaction. Follow with PCP in 1 to 2 weeks Total time spent, exact 35 minutes on discharge meds reconciliation, examination, coordination of care with nurses and ancillary staff, review of imaging and blood test and discussion with the patient on follow-up instructions. Plan VTE prophylaxis with SCDs Medications at Discharge Home Medications acetaminophen 325 mg tablet 650 mg (2 x 325 mg) PO Q6H PRN PRN Pain 1-10 Or Fever >100.7 #0 tabs 04/27/24 benzocaine 15 mg-menthol 3.6 mg lozenges (Sore Throat (benzocaine with menthol))1 juliet mucous membrane Q2H PRN PRN SORE THROAT #0 ea 04/27/24 carboxymethylcellulose sodium 0.5 % eye drops (Refresh Tears) 2 drp EACH EYE Q1HPRN DRY EYES #0 mL 04/27/24 diazepam 2 mg tablet 2 mg PO 4X/DAY PRN PRN Vertigo #0 tabs 25 food supplemt, lactose-reduced 0.08 gram-1.5 kcal/mL oral liquid (Ensure Plus High Protein) 120 ml PO TIDCM #0 mL 04/27/24 meclizine 25 mg tablet 12.5 mg (1/2 x 25 mg) PO TID PRN dizziness #0 tabs 04/27/24 meloxicam 15 mg tablet 15 mg PO DAILY #0 tabs 25 methocarbamol 500 mg tablet 1,000 mg (2 x 500 mg) PO 4X/DAY #0 tabs 04/27/24 midodrine 5 mg tablet 10 mg (2 x 5 mg) PO TIDCM #0 tabs 04/27/24 oxycodone 5 mg tablet 2.5 - 5 mg (0.5 - 1 x 5 mg) PO Q4H PRN PRN Pain Score 4- 10#0 tabs 04/27/24 pantoprazole 20 mg tablet,delayed release 20 mg PO DAILY #30 tabs 03/20/25 sennosides 8.6 mg-docusate sodium 50 mg tablet (Stimulant Laxative Plus) 2 tab PO BID #0 tabs 04/27/24 tamsulosin 0.4 mg capsule 0.4 mg PO DAILY@1730 #0 caps 04/27/24 Physical Exam Narrative Seen and examined Dressing was soaked in the morning and was changed and dry when I saw the patient in afternoon. Blood pressure normal 134/72. Mild difficulty in swallowing therefore on soft bite-size food. Patient had IV dexamethasone preop and then 4 mg x 2 dosages no respiratory distress. Physical exam General: Alert, Oriented x3, Cooperative HEENT: Atraumatic, PERRLA, EOMI, Normocephalic Oral: Oral mucosa moist. Neck: Hard cervical collar around the neck Chest wall/Lungs: Air entry diminished in bilateral lung bases. No crepitation/rhonchi Cardiovascular: Regular rate, Regular Rhythm, Normal S1, Normal S2, No M/G/R Abdomen: Bowel Sounds Present, Soft, Non Tender, Non-Distended : No dysuria. No renal angle tenderness. No suprapubic tenderness. Extremities: No edema, Capillary Refill Less than 3 Seconds Skin: Lateral neck approach, surgical dressing surgical dressing was changed andis dry. Has Reinaldo drain. Subcutaneous bruise/ecchymosis over left orbital and maxillary region Musculoskeletal: LUE, abduction limited to only 30 degree. RUE limited to 60 degree. Power at knee and hip joints 4+/5 Neurological: Cranial nerves II-XII grossly intact, DTR 2+/4. No acute focal neurological deficit. Psych/Mental Status: Normal Affect, Appropriate. Weight / BMI Weight Weight: 166 lb 10.711 oz Body Mass Index (BMI) 25.3 ABG / Lab / Microbiology Data 04/27/24 05:35 04/27/24 05:35 Laboratory: Laboratory Results - last 24 hr 04/26/24 19:43: Hgb 12.8 L, Hct 37.7 L 04/27/24 05:35: WBC 11.1 H, RBC 4.33 L, Hgb 13.0, Hct 37.9 L, MCV 87.5, MCH 30.0, MCHC 34.3, RDW Std Deviation 39.6, RDW Coeff of Delia 12.3, Plt Count 178, MPV 8.6, Immature Gran % (Auto) 0.900, Neut % (Auto) 78.8 H, Lymph % (Auto) 14.3L, [place] % (Auto) 5.8, Eos % (Auto) 0.0, Baso % (Auto) 0.2, Absolute Neuts (auto)8.8 H, Absolute Lymphs (auto) 1.59, Nucleated RBC % 0, Sodium 136, Potassium 4.6, Chloride 103, Carbon Dioxide 20.1 L, Anion Gap 12, BUN 19, Creatinine 0.91,Estim Creat Clear Calc 60.55, Est GFR (MDRD) Non-Af 84, BUN/Creatinine Ratio 21.3 H, Glucose 123 H, Calcium 8.2 Radiography Diagnostic Testing: Radiology Impression C-Arm Fluoroscopy 04/26/24 11:05 IMPRESSION: Intraoperative fluoroscopy performed for anterior cervical discectomy and fusionsurgery. 10 fluoroscopic images were also obtained. Reading Location: [address] Cervical Spine X-Ray 04/26/24 11:05 IMPRESSION: Intraoperative fluoroscopy performed for anterior cervical discectomy and fusionsurgery. 10 fluoroscopic images were also obtained. Reading Location: [address] Cervical Spine X-Ray 04/27/24 07:00 IMPRESSION: Osteopenia. Interval placement of a metallic fixation plate at the anterior margin of C3-C6. Interval placement of interbody spacer devices at C3-4, C4-5, and C5-6. No acute bony abnormality of the cervical spine. Similar moderate/severe degenerative disc disease at C6-7. [facility] Discharge Diet: Light diet - advance as tolerated (Soft, minced/bite sized for next 5 days) Weight Bearing Status: Weight bearing as tolerated Call your doctor if you observe: Fever of 101 or Higher, Coldness, Increased Pain, Numbness or Tingling, Change in Color, Inability to urinate, Inability to have a bowel movement, Shortness of breath, Dizziness, Fainting spells, Swellingin the ankles, Chest pain, Prolonged hiccupping, Increased palpitations (irregular heartbeat) and Calf discomfort DC O2, CPAP, BIPAP Needs Home O2 Discharge instructions: No When: IN 2 WEEKS Meaningful Use Info Meaningful Use Meaningful Use Diagnoses (Choose all that apply): None applicable Ischemic Stroke Statin Dosing Therapy Reference: STATIN DOSE THERAPY REFERENCE: * Patients > 75 years receive moderate or high dose statin therapy. * Patients 75 years or YOUNGER should receive HIGH intensity statin dose unless contraindicated. You will be required to document reason for non-treatment if statin daily dose does not meet guidelines. 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 Attending Provider: Harish Baxter Primary Care Provider: Kwabena Menjivar Consulting Providers: Ciro Diego; Yas Godinez; Keanu Alfred Discharge Orders/Prescriptions Prescriptions: New methocarbamol 500 mg Tablet 1,000 mg PO 4X/DAY Qty: 0 0RF acetaminophen 325 mg Tablet 650 mg PO Q6H PRN PRN (Reason: Pain 1-10 Or Fever >100.7) Qty: 0 0RF sennosides-docusate sodium [Stimulant Laxative Plus] 8.6-50 mg Tablet 2 tab PO BID Qty: 0 0RF midodrine 5 mg Tablet 10 mg PO TIDCM Qty: 0 0RF Rx Instructions: Hold for SBP less than 100 mmHg tamsulosin 0.4 mg Capsule 0.4 mg PO DAILY@1730 Qty: 0 0RF carboxymethylcellulose sodium [Refresh Tears] 0.5 % Drops 2 drp EACH EYE Q1H PRN (Reason: DRY EYES) Qty: 0 0RF meclizine 25 mg Tablet 12.5 mg PO TID PRN (Reason: dizziness) Qty: 0 0RF diazepam 2 mg Tablet 2 mg PO 4X/DAY PRN PRN (Reason: Vertigo) Qty: 0 0RF Rx Instructions: Hold for sedation/lethargy/hypotension, SBP less than 100 mmHg oxycodone 5 mg Tablet 2.5 - 5 mg PO Q4H PRN PRN (Reason: Pain Score 4-10) Qty: 0 0RF Rx Instructions: Oxycodone 2.5 mg for moderate pain and 5 mg for severe pain respectively. Sore Throat (benzocaine-menth) 15-3.6 mg Lozenge 1 juliet mucous membrane Q2H PRN PRN (Reason: SORE THROAT) Qty: 0 0RF Ensure Plus High Protein 0.08 gram-1.5 kcal/mL Liquid 120 ml PO TIDCM Qty: 0 0RF pantoprazole 20 mg tablet,delayed release (DR/EC) 20 mg PO DAILY Qty: 30 0RF meloxicam 15 mg Tablet 15 mg PO DAILY Qty: 0 0RF Rx Instructions: For 1 week Referrals / Follow Up: Ciro Diego MD [Med Staff - Active Staff] - Within 2 Weeks Kwabena Menjivar MD [Primary Care Provider] - Disposition Disposition (needs filled in before D/C Order can be placed): Home, Self Care Charges/Coding Visit Charges Inpatient E&M: 13608 Disch Hosp >30min 04/27/24 1357 <Electronically signed by aHrish Baxter MD> Cosigner Signature (if applicable): CC: Dr. Kwabena Menjivar MD; Dr. Harish Baxter MD~ Signed [facility] Work Phone: Evaluation noteNo assessment information available [facility] Work Phone: Evaluation note* Diagnosis Onset Date Resolution Status Admit Date Closed fracture of left maxi llary sinus acute April 19, 2024 12:44pm Epistaxis acute April 19 12:44pm Fall acute April 19 12:44pm Maxillary fracture, left luz e, initial encounter for closed fracture acute April 19, 2024 12:44pm Subconjunctival hemorrhage acute April 19, 2024 12:44pm Chronic left shoulder pain chronic April 19, 2024 12:44pm Hypertension chronic April 19, 2024 12:44pm [facility] Work Phone: Reason for referral (narrative)No reason for referral [facility] Work Phone: Summary Purpose Family History No Family History Records Found Relationship Condition Age at Onset Recorded Date/T adia Not Specified Hypertension Unknown father Cardiac disease Unknown Advance Directives No Advanced Directives Records Found Advance Directive Response Recorded Date/ Time Living Will No November 11 8:37am Power of Dumpster Operator No November 11 8:37am Advance Directive Response Recorded Date/ Time Living Will No February 25 11:01am Power of Dumpster Operator No February 26, 2024 11:01am Living Will Yes April 19, 2024 11:02am Power of Dumpster Operator Yes April 19 11:02am Name of Medical Power of Dumpster Operator ? April 19, 2024 11:02am Advance Directive Response Recorded Date/ Time Living Will No February 25 11:01am Do you have a Healthcare Power of Dumpster Operator? No February 26, 2024 11:01am Living Will Yes April 26, 2024 3:54pm Do you have a Healthcare Power of Dumpster Operator? Yes April 26, 2024 3:54pm Name of Medical Power of Dumpster Operator ? April 26, 2024 3:54pm Advance Directive Response Recorded Date/ Time Living Will No February 25 11:01am Do you have a Healthcare Power of Dumpster Operator? No February 26, 2024 11:01am Living Will Yes April 29, 2024 5:19pm Do you have a Healthcare Power of Dumpster Operator? Yes April 29, 2024 5:19pm Name of Medical Power of Dumpster Operator RIVERA ROSA April 29, 2024 5:19pm Living Will Yes April 26, 2024 3:54pm Do you have a Healthcare Power of Dumpster Operator? Yes April 26, 2024 3:54pm Name of Medical Power of Dumpster Operator ? April 26, 2024 3:54pm Advance Directive Response Recorded Date/ Time Living Will Yes April 29, 2024 5:19pm Do you have a Healthcare Power of Dumpster Operator? Yes April 29, 2024 5:19pm Name of Medical Power of Dumpster Operator RIVERA ROSA April 29, 2024 5:19pm Living Will Yes April 26, 2024 3:54pm Do you have a Healthcare Power of Dumpster Operator? Yes April 26, 2024 3:54pm Name of Medical Power of Dumpster Operator ? April 26, 2024 3:54pm Chief Complaint and Reason for Visit Chief Complaint EORDER Chief Complaint EORDER SHOULDER AND DDD RX HERE Chief Complaint EORDER SHOULDER AND DDD RX HERE E ORDER Chief Complaint Admit Date FALL February 26, 2024 9 :47am xray March 08, 2024 8 :45am SYNCOPE April 19, 2024 12: 44pm Reason for Visit Admit Date Closed fracture of left maxillary sinus April 19, 2024 12:44pm Epistaxis April 19, 2024 12: 44pm Fall April 19, 2024 12: 44pm Maxillary fracture, left luz e, initial encounter for closed fracture April 19, 2024 12:44pm Subconjunctival hemorrhage April 19 12:44pm Chronic left shoulder pain April 19 025 12:44pm Hypertension April 19, 2024 12: 44pm Chief Complaint Admit Date FALL February 26, 2024 9 :47am xray March 08, 2024 8 :45am Syncope April 19, 2024 12: 44pm Syncope April 19, 2024 1:2 3pm Syncope April 20, 2024 7:5 2am SYNCOPE April 20, 2024 12: 54pm Syncope April 21, 2024 8:3 0am Syncope April 21, 2024 4:2 1pm Syncope April 22, 2024 8:5 1am Syncope April 23, 2024 8:3 4am AM EKG April 24, 2024 5:0 1am Syncope April 24, 2024 8:0 4am Syncope April 25, 2024 12: 00pm Syncope April 25, 2024 2:3 2pm Syncope April 25, 2024 2:4 1pm Syncope April 26, 2024 9:4 5am Syncope April 26, 2024 3:2 5pm Syncope April 27, 2024 1:5 3pm Reason for Visit Admit Date Cervical myelopathy April 20, 2024 12: 54pm Closed fracture of left maxillary sinus April 20, 2024 12:54pm Epistaxis April 20, 2024 12: 54pm Fall April 20, 2024 12: 54pm Left arm weakness April 20, 2024 12: 54pm Maxillary fracture, left luz e, initial encounter for closed fracture April 20, 2024 12:54pm Maxillary sinus fracture April 20 12:54pm Subconjunctival hemorrhage March 13th, 2 025 12:54pm Syncope April 20, 2024 12: 54pm Chronic left shoulder pain April 20 025 12:54pm Hypertension April 20, 2024 12: 54pm Chief Complaint Admit Date FALL February 26, 2024 9 :47am xray March 08, 2024 8 :45am Syncope April 19, 2024 12: 44pm Syncope April 19, 2024 1:2 3pm Syncope April 20, 2024 7:5 2am SYNCOPE April 20, 2024 12: 54pm Syncope April 21, 2024 8:3 0am Syncope April 21, 2024 4:2 1pm Syncope April 22, 2024 8:5 1am Syncope April 23, 2024 8:3 4am AM EKG April 24, 2024 5:0 1am Syncope April 24, 2024 8:0 4am Syncope April 25, 2024 12: 00pm Syncope April 25, 2024 2:3 2pm Syncope April 25, 2024 2:4 1pm Syncope April 26, 2024 9:4 5am Syncope April 26, 2024 3:2 5pm Syncope April 27, 2024 1:5 3pm SPINCAL CORD COMPRESSION W MYELOPATHY [facility] 2024 3:15pm SPINCAL CORD COMPRESSION W MYELOPATHY [facility] 2024 7:39pm SPINCAL CORD COMPRESSION W MYELOPATHY [facility] 2024 10:15am Arrhythmia April 30, 2024 5:0 6pm SPINCAL CORD COMPRESSION W MYELOPATHY [facility] 2024 12:34pm SPINCAL CORD COMPRESSION W MYELOPATHY [facility] 2024 12:36pm SPINCAL CORD COMPRESSION W MYELOPATHY [facility] 2024 12:27pm SPINCAL CORD COMPRESSION W MYELOPATHY [facility] 2024 11:03am SPINCAL CORD COMPRESSION W MYELOPATHY [facility] 2024 9:56am SPINCAL CORD COMPRESSION W MYELOPATHY Ap ril 2024 10:35am SPINCAL CORD COMPRESSION W MYELOPATHY Ap ril 2024 2:26pm Reason for Visit Admit Date Fall April 20, 2024 12: 54pm Chronic left shoulder pain April 20, 2 025 12:54pm Hypertension April 20, 2024 12: 54pm Epistaxis April 20, 2024 12: 54pm Subconjunctival hemorrhage April 20, 2 025 12:54pm Cervical myelopathy April 20, 2024 12: 54pm Closed fracture of left maxillary sinus April 20, 2024 12:54pm Left arm weakness April 20, 2024 12: 54pm Maxillary fracture, left luz e, initial encounter for closed fracture April 20, 2024 12:54pm Maxillary sinus fracture April 20 12:54pm Syncope April 20, 2024 12: 54pm Acute blood loss as cause of postoperati ve anemia April 27, 2024 3:15pm Anxiety April 27, 2024 3:1 5pm BPPV (benign paroxysmal positional verti go) April 27, 2024 3:15pm Debility April 27, 2024 3:1 5pm Dysphagia April 27, 2024 3:1 5pm Fall April 27, 2024 3:1 5pm GERD (gastroesophageal reflux disease) M 2024 3:15pm Laryngeal edema April 27, 2024 3:1 5pm Left maxillary fracture April 27, 2024 3:15pm Multiple falls April 27, 2024 3:1 5pm Muscle spasm April 27, 2024 3:1 5pm Orthostatic hypotension April 27, 2024 3:15pm Osteoarthritis April 27, 2024 3:1 5pm Severe dehydration April 27, 2024 3:1 5pm Status post cervical spinal fusion April 27, 2024 3:15pm 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, 2024 3:15pm Urinary incontinence April 27, 2024 3: 15pm Urinary tract infection April 27, 2024 3:15pm Urine retention April 27, 2024 3:1 5pm Anxiety and depression April 27, 2024 3:15pm Bilateral arm weakness April 27, 2024 3:15pm 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 2 025 3:15pm Cervical stenosis of spinal canal April 27, 2024 3:15pm Chronic left shoulder pain April 27 2 025 3:15pm Foraminal stenosis of cervical region [facility] 2024 3:15pm GERD with esophagitis April 27, 2024 3 :15pm History of IBS April 27, 2024 3:1 5pm Postural dizziness with near syncope Mar 2024 3:15pm Urinary hesitancy March 20th, 2025 3:1 5pm Ventral hernia April 27, 2024 3:1 5pm BPH (benign prostatic hyperplasia) April 27, 2024 3:15pm Cervical myelopathy April 27, 2024 3:1 5pm Chief Complaint Admit Date FALL February 26, 2024 9 :47am xray March 08, 2024 8 :45am Syncope April 19, 2024 12: 44pm Syncope April 19, 2024 1:2 3pm Syncope April 20, 2024 7:5 2am SYNCOPE April 20, 2024 12: 54pm Syncope April 21, 2024 8:3 0am Syncope April 21, 2024 4:2 1pm Syncope April 22, 2024 8:5 1am Syncope April 23, 2024 8:3 4am AM EKG April 24, 2024 5:0 1am Syncope April 24, 2024 8:0 4am Syncope April 25, 2024 12: 00pm Syncope April 25, 2024 2:3 2pm Syncope April 25, 2024 2:4 1pm Syncope April 26, 2024 9:4 5am Syncope April 26, 2024 3:2 5pm Syncope April 27, 2024 1:5 3pm SPINCAL CORD COMPRESSION W MYELOPATHY [facility] 2024 3:15pm SPINCAL CORD COMPRESSION W MYELOPATHY [facility] 2024 7:39pm SPINCAL CORD COMPRESSION W MYELOPATHY [facility] 2024 10:15am Arrhythmia April 30, 2024 5:0 6pm SPINCAL CORD COMPRESSION W MYELOPATHY [facility] 2024 12:34pm SPINCAL CORD COMPRESSION W MYELOPATHY [facility] 2024 12:36pm SPINCAL CORD COMPRESSION W MYELOPATHY [facility] 2024 12:27pm SPINCAL CORD COMPRESSION W MYELOPATHY [facility] 2024 11:03am SPINCAL CORD COMPRESSION W MYELOPATHY [facility] 2024 9:56am SPINCAL CORD COMPRESSION W MYELOPATHY Ap ril 2024 10:35am SPINCAL CORD COMPRESSION W MYELOPATHY Ap ril 2024 2:26pm Hospital May 25, 2024 12: 30pm Reason for Visit Admit Date Fall April 20, 2024 12: 54pm Chronic left shoulder pain April 20, 2 025 12:54pm Hypertension April 20, 2024 12: 54pm Epistaxis April 20, 2024 12: 54pm Subconjunctival hemorrhage April 20, 2 025 12:54pm Cervical myelopathy April 20, 2024 12: 54pm Closed fracture of left maxillary sinus April 20, 2024 12:54pm Left arm weakness April 20, 2024 12: 54pm Maxillary fracture, left luz e, initial encounter for closed fracture April 20, 2024 12:54pm Maxillary sinus fracture April 20 12:54pm Syncope April 20, 2024 12: 54pm BPPV (benign paroxysmal positional verti go) April 27, 2024 3:15pm Debility April 27, 2024 3:1 5pm Dysphagia April 27, 2024 3:1 5pm Fall April 27, 2024 3:1 5pm GERD (gastroesophageal reflux disease) [facility] 2024 3:15pm Muscle spasm April 27, 2024 3:1 5pm Orthostatic hypotension April 27, 2024 3:15pm Osteoarthritis April 27, 2024 3:1 5pm Severe dehydration April 27, 2024 3:1 5pm Status post cervical spinal fusion April 27, 2024 3:15pm 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, 2024 3:15pm Urinary incontinence April 27, 2024 3: 15pm Urine retention April 27, 2024 3:1 5pm Anxiety and depression April 27, 2024 3:15pm Bilateral arm weakness April 27, 2024 3:15pm Chronic left shoulder pain April 27, 2 025 3:15pm GERD with esophagitis April 27, 2024 3 :15pm History of IBS April 27, 2024 3:1 5pm Postural dizziness with near syncope [facility] 2024 3:15pm Urinary hesitancy April 27, 2024 3:1 5pm Ventral hernia April 27, 2024 3:1 5pm BPH (benign prostatic hyperplasia) April 27, 2024 3:15pm Acute blood loss as cause of postoperati ve anemia April 27, 2024 3:15pm Anxiety April 27, 2024 3:1 5pm 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, 2 025 3:15pm Cervical stenosis of spinal canal April 27, 2024 3:15pm Foraminal stenosis of cervical region [facility] 2024 3:15pm Laryngeal edema April 27, 2024 3:1 5pm Left maxillary fracture April 27, 2024 3:15pm Multiple falls April 27, 2024 3:1 5pm Urinary tract infection April 27, 2024 3:15pm Cervical myelopathy April 27, 2024 3:1 5pm Constipation May 25, 2024 12: 30pm Fecal incontinence May 25, 2024 12: 30pm Chief Complaint Admit Date Syncope April 19, 2024 12: 44pm Syncope April 19, 2024 1:2 3pm Syncope April 20, 2024 7:5 2am SYNCOPE April 20, 2024 12: 54pm Syncope April 21, 2024 8:3 0am Syncope April 21, 2024 4:2 1pm Syncope April 22, 2024 8:5 1am Syncope April 23, 2024 8:3 4am AM EKG April 24, 2024 5:0 1am Syncope April 24, 2024 8:0 4am Syncope April 25, 2024 12: 00pm Syncope April 25, 2024 2:3 2pm Syncope April 25, 2024 2:4 1pm Syncope April 26, 2024 9:4 5am Syncope April 26, 2024 3:2 5pm Syncope April 27, 2024 1:5 3pm SPINCAL CORD COMPRESSION W MYELOPATHY [facility] 2024 3:15pm SPINCAL CORD COMPRESSION W MYELOPATHY [facility] 2024 7:39pm SPINCAL CORD COMPRESSION W MYELOPATHY [facility] 2024 10:15am Arrhythmia April 30, 2024 5:0 6pm SPINCAL CORD COMPRESSION W MYELOPATHY [facility] 2024 12:34pm SPINCAL CORD COMPRESSION W MYELOPATHY [facility] 2024 12:36pm SPINCAL CORD COMPRESSION W MYELOPATHY [facility] 2024 12:27pm SPINCAL CORD COMPRESSION W MYELOPATHY [facility] 2024 11:03am SPINCAL CORD COMPRESSION W MYELOPATHY [facility] 2024 9:56am SPINCAL CORD COMPRESSION W MYELOPATHY Ap ril 2024 10:35am SPINCAL CORD COMPRESSION W MYELOPATHY Ap ril 2024 2:26pm LABWORK May 22, 2024 5:0 0am Hospital FU May 25, 2024 12: 30pm LABWORK May 29, 2024 5:0 0am CERVICAL SPINE June 01, 2024 3:2 8pm RM 1 June 01, 2024 3:5 4pm LAB WORK June 05, 2024 4:0 0am LABWORK June 12, 2024 5:00am LAB WORK June 19, 2024 5:00a m LAB WORK June 26, 2024 4:00a m LAB WORK July 04, 2024 5:00a m E-ORDER July 20, 2024 4:24 pm Reason for Visit Admit Date Fall April 20, 2024 12: 54pm Chronic left shoulder pain April 20, 2 025 12:54pm Hypertension April 20, 2024 12: 54pm Epistaxis April 20, 2024 12: 54pm Subconjunctival hemorrhage April 20 025 12:54pm Cervical myelopathy April 20, 2024 12: 54pm Closed fracture of left maxillary sinus April 20, 2024 12:54pm Left arm weakness April 20, 2024 12: 54pm Maxillary fracture, left luz e, initial encounter for closed fracture April 20, 2024 12:54pm Maxillary sinus fracture April 20 12:54pm Syncope April 20, 2024 12: 54pm BPPV (benign paroxysmal positional verti go) April 27, 2024 3:15pm Debility April 27, 2024 3:1 5pm Dysphagia April 27, 2024 3:1 5pm Fall April 27, 2024 3:1 5pm GERD (gastroesophageal reflux disease) M 2024 3:15pm Muscle spasm April 27, 2024 3:1 5pm Orthostatic hypotension April 27, 2024 3:15pm Osteoarthritis April 27, 2024 3:1 5pm Severe dehydration April 27, 2024 3:1 5pm Status post cervical spinal fusion April 27, 2024 3:15pm 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, 2024 3:15pm Urinary incontinence April 27, 2024 3: 15pm Urine retention April 27, 2024 3:1 5pm Anxiety and depression April 27, 2024 3:15pm Bilateral arm weakness April 27, 2024 3:15pm Chronic left shoulder pain April 27, 2 025 3:15pm GERD with esophagitis April 27, 2024 3 :15pm History of IBS April 27, 2024 3:1 5pm Postural dizziness with near syncope [facility] 2024 3:15pm Urinary hesitancy April 27, 2024 3:1 5pm Ventral hernia April 27, 2024 3:1 5pm BPH (benign prostatic hyperplasia) April 27, 2024 3:15pm Acute blood loss as cause of postoperati ve anemia April 27, 2024 3:15pm Anxiety April 27, 2024 3:1 5pm 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, 025 3:15pm Cervical stenosis of spinal canal April 27, 2024 3:15pm Foraminal stenosis of cervical region [facility] 2024 3:15pm Laryngeal edema April 27, 2024 3:1 5pm Left maxillary fracture April 27, 2024 3:15pm Multiple falls April 27, 2024 3:1 5pm Urinary tract infection April 27, 2024 3:15pm Cervical myelopathy April 27, 2024 3:1 5pm Constipation May 25, 2024 12: 30pm Fecal incontinence May 25, 2024 12: 30pm Status post cervical spinal fusion June 01, 2024 3:28pm Cervical myelopathy June 01, 2024 3:2 8pm Chief Complaint Admit Date Syncope April 19, 2024 12: 44pm Syncope April 19, 2024 1:2 3pm Syncope April 20, 2024 7:5 2am SYNCOPE April 20, 2024 12: 54pm Syncope April 21, 2024 8:3 0am Syncope April 21, 2024 4:2 1pm Syncope April 22, 2024 8:5 1am Syncope April 23, 2024 8:3 4am AM EKG April 24, 2024 5:0 1am Syncope April 24, 2024 8:0 4am Syncope April 25, 2024 12: 00pm Syncope April 25, 2024 2:3 2pm Syncope April 25, 2024 2:4 1pm Syncope April 26, 2024 9:4 5am Syncope April 26, 2024 3:2 5pm Syncope April 27, 2024 1:5 3pm SPINCAL CORD COMPRESSION W MYELOPATHY [facility] 2024 3:15pm SPINCAL CORD COMPRESSION W MYELOPATHY [facility] 2024 7:39pm SPINCAL CORD COMPRESSION W MYELOPATHY [facility] 2024 10:15am Arrhythmia April 30, 2024 5:0 6pm SPINCAL CORD COMPRESSION W MYELOPATHY [facility] 2024 12:34pm SPINCAL CORD COMPRESSION W MYELOPATHY [facility] 2024 12:36pm SPINCAL CORD COMPRESSION W MYELOPATHY [facility] 2024 12:27pm SPINCAL CORD COMPRESSION W MYELOPATHY [facility] 2024 11:03am SPINCAL CORD COMPRESSION W MYELOPATHY [facility] 2024 9:56am SPINCAL CORD COMPRESSION W MYELOPATHY Ap ril 2024 10:35am SPINCAL CORD COMPRESSION W MYELOPATHY Ap ril 2024 2:26pm LABWORK May 22, 2024 5:0 0am Admission Exam May 22, 2024 6:3 5pm Hospital FU May 25, 2024 12: 30pm K59.00 CONSTIPATION,UNSPECIFIED May 252024 1:42pm LABWORK May 29, 2024 5:0 0am CERVICAL SPINE June 01, 2024 3:2 8pm RM 1 June 01, 2024 3:5 4pm LAB WORK June 05, 2024 4:0 0am LABWORK June 12, 2024 5:00am LAB WORK June 19, 2024 5:00a m LAB WORK June 26, 2024 4:00a m LAB WORK July 04, 2024 5:00a m E-ORDER July 20, 2024 4:24 pm Chief Complaint Admit Date Syncope April 19, 2024 12: 44pm Syncope April 19, 2024 1:2 3pm Syncope April 20, 2024 7:5 2am SYNCOPE April 20, 2024 12: 54pm Syncope April 21, 2024 8:3 0am Syncope April 21, 2024 4:2 1pm Syncope April 22, 2024 8:5 1am Syncope April 23, 2024 8:3 4am AM EKG April 24, 2024 5:0 1am Syncope April 24, 2024 8:0 4am Syncope April 25, 2024 12: 00pm Syncope April 25, 2024 2:3 2pm Syncope April 25, 2024 2:4 1pm Syncope April 26, 2024 9:4 5am Syncope April 26, 2024 3:2 5pm Syncope April 27, 2024 1:5 3pm SPINCAL CORD COMPRESSION W MYELOPATHY [facility] 2024 3:15pm SPINCAL CORD COMPRESSION W MYELOPATHY [facility] 2024 7:39pm SPINCAL CORD COMPRESSION W MYELOPATHY [facility] 2024 10:15am Arrhythmia April 30, 2024 5:0 6pm SPINCAL CORD COMPRESSION W MYELOPATHY [facility] 2024 12:34pm SPINCAL CORD COMPRESSION W MYELOPATHY [facility] 2024 12:36pm SPINCAL CORD COMPRESSION W MYELOPATHY [facility] 2024 12:27pm SPINCAL CORD COMPRESSION W MYELOPATHY [facility] 2024 11:03am SPINCAL CORD COMPRESSION W MYELOPATHY [facility] 2024 9:56am SPINCAL CORD COMPRESSION W MYELOPATHY Ap ril 2024 10:35am SPINCAL CORD COMPRESSION W MYELOPATHY Ap ril 2024 2:26pm LABWORK May 22, 2024 5:0 0am Admission Exam May 22, 2024 6:3 5pm Admission Exam May 23, 2024 2:1 9pm Hospital FU May 25, 2024 12: 30pm [email or web address] CONSTIPATION,UNSPECIFIED May 252024 1:42pm LABWORK May 29, 2024 5:0 0am CERVICAL SPINE June 01, 2024 3:2 8pm RM 1 June 01, 2024 3:5 4pm LAB WORK June 05, 2024 4:0 0am LABWORK June 12, 2024 5:00am LAB WORK June 19, 2024 5:00a m LAB WORK June 26, 2024 4:00a m LAB WORK July 04, 2024 5:00a m E-ORDER July 20, 2024 4:24 pm Chief Complaint Admit Date Syncope April 19, 2024 12: 44pm Syncope April 19, 2024 1:2 3pm Syncope April 20, 2024 7:5 2am SYNCOPE April 20, 2024 12: 54pm Syncope April 21, 2024 8:3 0am Syncope April 21, 2024 4:2 1pm Syncope April 22, 2024 8:5 1am Syncope April 23, 2024 8:3 4am AM EKG April 24, 2024 5:0 1am Syncope April 24, 2024 8:0 4am Syncope April 25, 2024 12: 00pm Syncope April 25, 2024 2:3 2pm Syncope April 25, 2024 2:4 1pm Syncope April 26, 2024 9:4 5am Syncope April 26, 2024 3:2 5pm Syncope April 27, 2024 1:5 3pm SPINCAL CORD COMPRESSION W MYELOPATHY [facility] 2024 3:15pm SPINCAL CORD COMPRESSION W MYELOPATHY [facility] 2024 7:39pm SPINCAL CORD COMPRESSION W MYELOPATHY [facility] 2024 10:15am Arrhythmia April 30, 2024 5:0 6pm SPINCAL CORD COMPRESSION W MYELOPATHY [facility] 2024 12:34pm SPINCAL CORD COMPRESSION W MYELOPATHY [facility] 2024 12:36pm SPINCAL CORD COMPRESSION W MYELOPATHY [facility] 2024 12:27pm SPINCAL CORD COMPRESSION W MYELOPATHY [facility] 2024 11:03am SPINCAL CORD COMPRESSION W MYELOPATHY [facility] 2024 9:56am SPINCAL CORD COMPRESSION W MYELOPATHY Ap r[facility] 2024 10:35am SPINCAL CORD COMPRESSION W MYELOPATHY Ap [facility] 2024 2:26pm LABWORK May 22, 2024 5:0 0am Admission Exam May 22, 2024 6:3 5pm Admission Exam May 23, 2024 2:1 9pm Hospital FU May 25, 2024 12: 30pm [email or web address] CONSTIPATION,UNSPECIFIED May 252024 1:42pm LABWORK May 29, 2024 5:0 0am New Concern May 30, 2024 3:3 8pm CERVICAL SPINE June 01, 2024 3:2 8pm RM 1 June 01, 2024 3:5 4pm LAB WORK June 05, 2024 4:0 0am LABWORK June 12, 2024 5:00am LAB WORK June 19, 2024 5:00a m LAB WORK June 26, 2024 4:00a m LAB WORK July 04, 2024 5:00a m E-ORDER July 20, 2024 4:24 pm Chief Complaint Admit Date Syncope April 19, 2024 12: 44pm Syncope April 19, 2024 1:2 3pm Syncope April 20, 2024 7:5 2am SYNCOPE April 20, 2024 12: 54pm Syncope April 21, 2024 8:3 0am Syncope April 21, 2024 4:2 1pm Syncope April 22, 2024 8:5 1am Syncope April 23, 2024 8:3 4am AM EKG April 24, 2024 5:0 1am Syncope April 24, 2024 8:0 4am Syncope April 25, 2024 12: 00pm Syncope April 25, 2024 2:3 2pm Syncope April 25, 2024 2:4 1pm Syncope April 26, 2024 9:4 5am Syncope April 26, 2024 3:2 5pm Syncope April 27, 2024 1:5 3pm SPINCAL CORD COMPRESSION W MYELOPATHY [facility] 2024 3:15pm SPINCAL CORD COMPRESSION W MYELOPATHY [facility] 2024 7:39pm SPINCAL CORD COMPRESSION W MYELOPATHY [facility] 2024 10:15am Arrhythmia April 30, 2024 5:0 6pm SPINCAL CORD COMPRESSION W MYELOPATHY [facility] 2024 12:34pm SPINCAL CORD COMPRESSION W MYELOPATHY [facility] 2024 12:36pm SPINCAL CORD COMPRESSION W MYELOPATHY [facility] 2024 12:27pm SPINCAL CORD COMPRESSION W MYELOPATHY [facility] 2024 11:03am SPINCAL CORD COMPRESSION W MYELOPATHY [facility] 2024 9:56am SPINCAL CORD COMPRESSION W MYELOPATHY ril 2024 10:35am SPINCAL CORD COMPRESSION W MYELOPATHY Ap ril 2024 2:26pm LABWORK May 22, 2024 5:0 0am Admission Exam May 22, 2024 6:3 5pm Admission Exam May 23, 2024 2:1 9pm Hospital FU May 25, 2024 12: 30pm [email or web address] CONSTIPATION,UNSPECIFIED May 252024 1:42pm LABWORK May 29, 2024 5:0 0am New Concern May 30, 2024 3:3 8pm CERVICAL SPINE June 01, 2024 3:2 8pm RM 1 June 01, 2024 3:5 4pm LAB WORK June 05, 2024 4:0 0am LABWORK June 12, 2024 5:00am LAB WORK June 19, 2024 5:00a m LAB WORK June 26, 2024 4:00a m LAB WORK July 04, 2024 5:00a m LABWORK July 11, 2024 5:00a m E-ORDER July 20, 2024 4:24 pm CERVICAL SPINE August 03, 2024 3:03 pm RM 1 August 03, 2024 3:40 pm Additional Source Comments (unrecognized sect ion and content) No Status Records FoundNo Status Records FoundNo Status Records Found INFORMATION SOURCE (unrecogn ized section and content) DATE CREATED AUTHOR 08/04/2017 [facility] ([place]) DATE CREATED AUTHOR AUTHOR'S ORGANIZ ATION 03/11/2021 [facility] DATE CREATED AUTHOR AUTHOR'S ORGANIZ ATION 08/05/2024 [facility] Care Teams (unrecognized sec tion and content) Team Status: Active Member Role Status Dates Dr. Kwabena Menjivar MD Primary Care Provider Acti ve Team Status: Active Member Role Status Dates Dr. Kwabena Menjivar MD Primary Care Provider Acti ve Start: April 19, 2024 Dr. Laureano Gallagher DO Emergency Provider Active Start: April 19, 2024 Dr. Keanu Alfred DO Admit Provider Active Star t: April 19, 2024 Dr. Keanu Alfred DO Referring Provider Active Start: April 19, 2024 Dr. Keanu Alfred DO Other Provider Active Star t: April 19, 2024 Dr. Yas Godinez MD Attending Provider Active Start: April 19, 2024 Dr. Yas Godinez MD Other Provider Active Star t: April 19, 2024 Team Status: Active Member Role Status Dates Dr. Kwabena Menjivar MD Primary Care Provider Acti ve Start: April 19, 2024 Dr. Laureano Gallagher DO Emergency Provider Active Start: April 19, 2024 Dr. Keanu Alfred DO Admit Provider Active Star t: April 19, 2024 Dr. Keanu Alfred DO Attending Provider Active Start: April 19, 2024 Dr. Keanu Alfred DO Other Provider Active Star t: April 19, 2024 Team Status: Active Member Role Status Dates Dr. Kwabena Menjivar MD Primary Care Provider Acti ve Start: April 19, 2024 Dr. Danette Sargent MD Attending Provider Activ e Start: April 19, 2024 Team Status: Active Member Role Status Dates Dr. Kwabena Menjivar MD Primary Care Provider Acti ve Start: April 20, 2024 Dr. Laureano Gallagher DO Emergency Provider Active Start: April 20, 2024 Dr. Keanu Alfred DO Admit Provider Active Star t: April 20, 2024 Dr. Keanu Alfred DO Attending Provider Active Start: April 20, 2024 Dr. Keanu Alfred DO Other Provider Active Star t: April 20, 2024 Dr. Yas Godinez MD Other Provider Active Star t: April 20, 2024 Dr. Ciro Diego MD Other Provider Active Star t: April 20, 2024 Team Status: Inactive Member Role Status Dates Dr. Kwabena Menjivar MD Primary Care Provider Acti ve Start: April 20, 2024 End: April 27, 2024 Dr. Laureano Gallagher DO Emergency Provider Active Start: April 20, 2024 End: April 27, 2024 Dr. Keanu Alfred DO Admit Provider Active Star t: April 20, 2024 End: April 27, 2024 Dr. Keanu Alfred DO Other Provider Active Star t: April 20, 2024 End: April 27, 2024 Dr. Ciro Diego MD Other Provider Active Star t: April 20, 2024 End: April 27, 2024 Dr. Yas Godinez MD Other Provider Active Star t: April 20, 2024 End: April 27, 2024 Dr. Harish Baxter MD Attending Provider Active Start: April 20, 2024 End: April 27, 2024 Team Status: Active Member Role Status Dates Dr. Kwabena Menjivar MD Primary Care Provider Acti ve Start: April 21, 2024 Dr. Laureano Gallagher DO Emergency Provider Active Start: April 21, 2024 Dr. Keanu Alfred DO Admit Provider Active Star t: April 21, 2024 Dr. Keanu Alfred DO Attending Provider Active Start: April 21, 2024 Dr. Keanu Alfred DO Other Provider Active Star t: April 21, 2024 Dr. Yas Godinez MD Other Provider Active Star t: April 21, 2024 Dr. Ciro Diego MD Other Provider Active Star t: April 21, 2024 Team Status: Active Member Role Status Dates Dr. Kwabena Menjivar MD Primary Care Provider Acti ve Start: April 21, 2024 Dr. Laureano Gallagher DO Emergency Provider Active Start: April 21, 2024 Dr. Keanu Alfred DO Admit Provider Active Star t: April 21, 2024 Dr. Keanu Alfred DO Other Provider Active Star t: April 21, 2024 Dr. Yas Godinez MD Other Provider Active Star t: April 21, 2024 Dr. Ciro Diego MD Attending Provider Active Start: April 21, 2024 Dr. Ciro Diego MD Other Provider Active Star t: April 21, 2024 Dr. Harish Baxter MD Referring Provider Active Start: April 21, 2024 Team Status: Active Member Role Status Dates Dr. Kwabena Menjivar MD Primary Care Provider Acti ve Start: April 22, 2024 Dr. Laureano Gallagher DO Emergency Provider Active Start: April 22, 2024 Dr. Keanu Alfred DO Admit Provider Active Star t: April 22, 2024 Dr. Keanu Alfred DO Attending Provider Active Start: April 22, 2024 Dr. Keanu Alfred DO Other Provider Active Star t: April 22, 2024 Dr. Yas Godinez MD Other Provider Active Star t: April 22, 2024 Dr. Ciro Diego MD Other Provider Active Star t: April 22, 2024 Team Status: Active Member Role Status Dates Dr. Kwabena Menjivar MD Primary Care Provider Acti ve Start: April 23, 2024 Dr. Laureano Gallagher DO Emergency Provider Active Start: April 23, 2024 Dr. Keanu Alfred DO Admit Provider Active Star t: April 23, 2024 Dr. Keanu Alfred DO Attending Provider Active Start: April 23, 2024 Dr. Keanu Alfred DO Other Provider Active Star t: April 23, 2024 Dr. Ciro Diego MD Other Provider Active Star t: April 23, 2024 Dr. Yas Godinez MD Other Provider Active Star t: April 23, 2024 Team Status: Active Member Role Status Dates Dr. Kwabena Menjivar MD Primary Care Provider Acti ve Start: April 24, 2024 End: April 24, 2024 Dr. David Granados MD Attending Provider Active S tart: April 24, 2024 End: April 24, 2024 Dr. David Granados MD Referring Provider Active S tart: April 24, 2024 End: April 24, 2024 Team Status: Active Member Role Status Dates Dr. Kwabena Menjivar MD Primary Care Provider Acti ve Start: April 24, 2024 Dr. Laureano Gallagher DO Emergency Provider Active Start: April 24, 2024 Dr. Keanu Alfred DO Admit Provider Active Star t: April 24, 2024 Dr. Keanu Alfred DO Other Provider Active Star t: April 24, 2024 Dr. Ciro Diego MD Other Provider Active Star t: April 24, 2024 Dr. Yas Godinez MD Other Provider Active Star t: April 24, 2024 Dr. Harish Baxter MD Attending Provider Active Start: April 24, 2024 Dr. Harish Baxter MD Other Provider Active Sta rt: April 24, 2024 Team Status: Active Member Role Status Dates Dr. Kwabena Menjivar MD Primary Care Provider Acti ve Start: April 25, 2024 Dr. Laureano Gallagher DO Emergency Provider Active Start: April 25, 2024 Dr. Keanu Alfred DO Admit Provider Active Star t: April 25, 2024 Dr. Keanu Alfred DO Other Provider Active Star t: April 25, 2024 Dr. Ciro Diego MD Attending Provider Active Start: April 25, 2024 Dr. Ciro Diego MD Other Provider Active Star t: April 25, 2024 Dr. Yas Godinez MD Other Provider Active Star t: April 25, 2024 Dr. Harish Baxter MD Other Provider Active Sta rt: April 25, 2024 Team Status: Active Member Role Status Dates Dr. Kwabena Menjivar MD Primary Care Provider Acti ve Start: April 25, 2024 Dr. Laureano Gallagher DO Emergency Provider Active Start: April 25, 2024 Dr. Keanu Alfred DO Admit Provider Active Star t: April 25, 2024 Dr. Keanu Alfred DO Other Provider Active Star t: April 25, 2024 Dr. Ciro Diego MD Other Provider Active Star t: April 25, 2024 Dr. Yas Godinez MD Other Provider Active Star t: April 25, 2024 Dr. Harish Baxter MD Other Provider Active Sta rt: April 25, 2024 Ana Rosa Howard ART HISTORIAN, ART HISTORIAN-C Attending Provider Active Start: April 25, 2024 Team Status: Active Member Role Status Dates Dr. Kwabena Menjivar MD Primary Care Provider Acti ve Start: April 25, 2024 Dr. Laureano Gallagher DO Emergency Provider Active Start: April 25, 2024 Dr. Keanu Alfred DO Admit Provider Active Star t: April 25, 2024 Dr. Keanu Alfred DO Other Provider Active Star t: April 25, 2024 Dr. Ciro Diego MD Other Provider Active Star t: April 25, 2024 Dr. Yas Godinez MD Other Provider Active Star t: April 25, 2024 Dr. Harish Baxter MD Attending Provider Active Start: April 25, 2024 Dr. Harish Baxter MD Other Provider Active Sta rt: April 25, 2024 Team Status: Active Member Role Status Dates Dr. Kwabena Menjivar MD Primary Care Provider Acti ve Start: April 26, 2024 Dr. Laureano Gallagher DO Emergency Provider Active Start: April 26, 2024 Dr. Keanu Alfred DO Admit Provider Active Star t: April 26, 2024 Dr. Keanu Alfred DO Other Provider Active Star t: April 26, 2024 Dr. Ciro Diego MD Attending Provider Active Start: April 26, 2024 Dr. Ciro Diego MD Other Provider Active Star t: April 26, 2024 Dr. Yas Godinez MD Other Provider Active Star t: April 26, 2024 Dr. Harish Baxter MD Other Provider Active Sta rt: April 26, 2024 Team Status: Active Member Role Status Dates Dr. Kwabena Menjivar MD Primary Care Provider Acti ve Start: April 26, 2024 Dr. Laureano Gallagher DO Emergency Provider Active Start: April 26, 2024 Dr. Keanu Alfred DO Admit Provider Active Star t: April 26, 2024 Dr. Keanu Alfred DO Other Provider Active Star t: April 26, 2024 Dr. Ciro Diego MD Other Provider Active Star t: April 26, 2024 Dr. Yas Godinez MD Other Provider Active Star t: April 26, 2024 Dr. Harish Baxter MD Attending Provider Active Start: April 26, 2024 Dr. Harish Baxter MD Other Provider Active Sta rt: April 26, 2024 Team Status: Active Member Role Status Dates Dr. Kwabena Menjivar MD Primary Care Provider Acti ve Start: April 27, 2024 Dr. Laureano Gallagher DO Emergency Provider Active Start: April 27, 2024 Dr. Keanu Alfred DO Admit Provider Active Star t: April 27, 2024 Dr. Keanu Alfred DO Other Provider Active Star t: April 27, 2024 Dr. Ciro Diego MD Other Provider Active Star t: April 27, 2024 Dr. Yas Godinez MD Other Provider Active Star t: April 27, 2024 Dr. Harish Baxter MD Attending Provider Active Start: April 27, 2024 Dr. Harish Baxter MD Other Provider Active Sta rt: April 27, 2024 Team Status: Inactive Member Role Status Dates Dr. Kwabena Menjivar MD Primary Care Provider Acti ve Start: April 27, 2024 End: May 20, 2024 Dr. Corazon Wright DO Admit Provider Active Start: April 27, 2024 End: May 20, 2024 Dr. Corazon Wright DO Attending Provider Act deborah Start: April 27, 2024 End: May 20, 2024 Dr. Corazon Wright DO Referring Provider Act deborah Start: April 27, 2024 End: May 20, 2024 Team Status: Active Member Role Status Dates Dr. Kwabena Menjivar MD Primary Care Provider Acti ve Start: April 27, 2024 Dr. Corazon Wright DO Admit Provider Active Start: April 27, 2024 Dr. Corazon Wright DO Referring Provider Act deborah Start: April 27, 2024 Dr. Corazon Wright DO Other Provider Active Start: April 27, 2024 YADY Hyman Attending Provider Active Star t: April 27, 2024 Team Status: Active Member Role Status Dates Dr. Kwabena Menjivar MD Primary Care Provider Acti ve Start: April 28, 2024 Dr. Corazon Wright DO Admit Provider Active Start: April 28, 2024 Dr. Corazon Wright DO Attending Provider Act deborah Start: April 28, 2024 Dr. Corazon Wright DO Other Provider Active Start: April 28, 2024 Team Status: Active Member Role Status Dates Dr. Kwabena Menjivar MD Primary Care Provider Acti ve Start: April 30, 2024 End: April 30, 2024 Dr. David Granados MD Attending Provider Active S tart: April 30, 2024 End: April 30, 2024 Dr. Corazon Wright DO Referring Provider Act deborah Start: April 30, 2024 End: April 30, 2024 Team Status: Active Member Role Status Dates Dr. Kwabena Menjivar MD Primary Care Provider Acti ve Start: May 01, 2024 Dr. Corazon Wright DO Admit Provider Active Start: May 01, 2024 Dr. Corazon Wright DO Attending Provider Act deborah Start: May 01, 2024 Dr. Corazon Wright DO Other Provider Active Start: May 01, 2024 Team Status: Active Member Role Status Dates Dr. Kwabena Menjivar MD Primary Care Provider Acti ve Start: May 02, 2024 Dr. Corazon Wright DO Admit Provider Active Start: May 02, 2024 Dr. Corazon Wright DO Attending Provider Act deborah Start: May 02, 2024 Dr. Corazon Wright DO Other Provider Active Start: May 02, 2024 Team Status: Active Member Role Status Dates Dr. Kwabena Menjivar MD Primary Care Provider Acti ve Start: May 03, 2024 Dr. Corazon Wright DO Admit Provider Active Start: May 03, 2024 Dr. Corazon Wright DO Attending Provider Act deborah Start: May 03, 2024 Dr. Corazon Wright DO Other Provider Active Start: May 03, 2024 Team Status: Active Member Role Status Dates Dr. Kwabena Menjivar MD Primary Care Provider Acti ve Start: May 05, 2024 Dr. Corazon Wright , DO Admit Provider Active Start: May 05, 2024 Dr. Corazon Wright , DO Attending Provider Act deborah Start: May 05, 2024 Dr. Corazon Wright DO Other Provider Active Start: May 05, 2024 Team Status: Active Member Role Status Dates Dr. Kwabena Menjivar MD Primary Care Provider Acti ve Start: May 08, 2024 Dr. Corazon Wright , DO Admit Provider Active Start: May 08, 2024 Dr. Corazon Wright DO Attending Provider Act deborah Start: May 08, 2024 Dr. Corazon Wright , DO Other Provider Active Start: May 08, 2024 Team Status: Active Member Role Status Dates Dr. Kwabena Menjivar MD Primary Care Provider Acti ve Start: May 09, 2024 Dr. Corazon Wright , Admit Provider Active Start: May 09, 2024 Dr. Corazon Wright , DO Attending Provider Act deborah Start: May 09, 2024 Dr. Corazon Wright , Other Provider Active Start: May 09, 2024 Team Status: Active Member Role Status Dates Dr. Kwabena Menjivar MD Primary Care Provider Acti ve Start: May 11, 2024 Dr. Corazon Wright , Admit Provider Active Start: May 11, 2024 Dr. Corazon Wright DO Referring Provider Act deborah Start: May 11, 2024 Dr. Corazon Wright , DO Other Provider Active Start: May 11, 2024 Dr. Ciro Diego MD Attending Provider Active Start: May 11, 2024 Team Status: Active Member Role Status Dates Dr. Kwabena Menjivar MD Primary Care Provider Acti ve Start: May 22, 2024 Keven KIRKPATRICK MD Attending Provider Active Start: May 22, 2024 Team Status: Inactive Member Role Status Dates Dr. Kwabena Menjivar MD Primary Care Provider Acti ve Start: May 25, 2024 End: May 25, 2024 Dr. Kwabena Menjivar MD Referring Provider Active Start: May 25, 2024 End: May 25, 2024 LEONIDAS Hilton Attending Provider Active Start: May 25, 2024 End: May 25, 2024 Team Status: Inactive Member Role Status Dates Dr. Kwabena Menjivar MD Primary Care Provider Acti ve Start: May 25, 2024 End: May 25, 2024 LEONIDAS Hilton Attending Provider Active Start: May 25, 2024 End: May 25, 2024 LEONIDAS Hilton Referring Provider Active Start: May 25, 2024 End: May 25, 2024 Team Status: Active Member Role Status Dates Dr. Kwabena Menjivar MD Primary Care Provider Acti ve Start: May 29, 2024 Keven KIRKPATRICK MD Attending Provider Active Start: May 29, 2024 Team Status: Inactive Member Role Status Dates Dr. Kwabena Menjivar MD Primary Care Provider Acti ve Start: June 01, 2024 End: June 01, 2024 Dr. Kwabena Menjivar MD Referring Provider Active Start: June 01, 2024 End: June 01, 2024 Dr. Ciro Diego MD Attending Provider Active Start: June 01, 2024 End: June 01, 2024 Team Status: Inactive Member Role Status Dates Dr. Kwabena Menjivar MD Primary Care Provider Acti ve Start: June 01, 2024 End: June 01, 2024 Dr. David Granados MD Attending Provider Active S tart: June 01, 2024 End: June 01, 2024 Team Status: Active Member Role Status Dates Dr. Kwabena Menjivar MD Primary Care Provider Acti ve Start: June 05, 2024 Keven KIRKPATRICK MD Attending Provider Active Start: June 05, 2024 Keven KIRKPATRICK MD Referring Provider Active Start: June 05, 2024 Team Status: Active Member Role Status Dates Dr. Kwabena Menjivar MD Primary Care Provider Acti ve Start: June 12, 2024 Keven KIRKPATRICK MD Attending Provider Active Start: June 12, 2024 Team Status: Active Member Role Status Dates Dr. Kwabena Menjivar MD Primary Care Provider Acti ve Start: June 19, 2024 Keven KIRKPATRICK MD Attending Provider Active Start: June 19, 2024 Team Status: Active Member Role Status Dates Dr. Kwabena Menjivar MD Primary Care Provider Acti ve Start: June 26, 2024 Keven KIRKPATRICK MD Attending Provider Active Start: June 26, 2024 Keven KIRKPATRICK MD Referring Provider Active Start: June 26, 2024 Team Status: Active Member Role Status Dates Dr. Kwabena Menjivar MD Primary Care Provider Acti ve Start: July 04, 2024 Keven KIRKPATRICK MD Attending Provider Active Start: July 04, 2024 Team Status: Active Member Role Status Dates Dr. Kwabena Menjivar MD Primary Care Provider Acti ve Start: July 11, 2024 Keven KIRKPATRICK MD Attending Provider Active Start: July 11, 2024 Team Status: Inactive Member Role Status Dates Dr. Kwabena Menjivar MD Primary Care Provider Acti ve Start: July 20, 2024 End: July 20, 2024 Dr. Kwabena Menjivar MD Attending Provider Active Start: July 20, 2024 End: July 20, 2024 Dr. Kwabena Menjivar MD Referring Provider Active Start: July 20, 2024 End: July 20, 2024 Team Status: Active Member Role Status Dates Dr. William Menjivar MD Family Provider Active Dr. William Menjivar MD Primary Care Provider Activ e Team Status: Inactive Member Role Status Dates Dr. William Menjivar MD Primary Care Provider, Attending Provider, Referring Provider Active Team Status: Inactive Member Role Status Dates Dr. William Menjivar MD Primary Care Provider, Atte nding Provider Active Team Status: Inactive Member Role Status Dates Dr. Kwabena Menjivar MD Primary Care Provider Acti ve Start: February 26, 2024 End: February 26, 2024 Dr. Asher Flores MD Attending Provider Active S tart: February 26, 2024 End: February 26, 2024 Dr. Asher Flores MD Emergency Provider Active S tart: February 26, 2024 End: February 26, 2024 Team Status: Inactive Member Role Status Dates Dr. Kwabena Menjivar MD Primary Care Provider Acti ve Start: March 08, 2024 End: March 08, 2024 Dr. David Granados MD Attending Provider Active S tart: March 08, 2024 End: March 08, 2024 Team Status: Active Member Role Status Dates Dr. Kwabena Menjivar MD Primary Care Provider Acti ve Start: April 19, 2024 Dr. Laureano Gallagher DO Emergency Provider Active Start: April 19, 2024 Dr. Keanu Alfred DO Admit Provider Active Star t: April 19, 2024 Dr. Keanu Alfred DO Attending Provider Active Start: April 19, 2024 Team Status: Active Member Role Status Dates Dr. Kwabena Menjivar MD Primary Care Provider Acti ve Start: April 19, 2024 Dr. Laureano Gallagher DO Emergency Provider Active Start: April 19, 2024 Dr. Keanu Alfred DO Admit Provider Active Star t: April 19, 2024 Dr. Keanu Alfred DO Other Provider Active Star t: April 19, 2024 Dr. Yas Godinez MD Attending Provider Active Start: April 19, 2024 Dr. Yas Godinez MD Other Provider Active Star t: April 19, 2024 Team Status: Active Member Role Status Dates Dr. Kwabena Menjivar MD Primary Care Provider Acti ve Start: April 21, 2024 Dr. Laureano Gallagher DO Emergency Provider Active Start: April 21, 2024 Dr. Keanu Alfred DO Admit Provider Active Star t: April 21, 2024 Dr. Keanu Alfred DO Other Provider Active Star t: April 21, 2024 Dr. Yas Godinez MD Other Provider Active Star t: April 21, 2024 Dr. Ciro Diego MD Attending Provider Active Start: April 21, 2024 Dr. Ciro Diego MD Other Provider Active Star t: April 21, 2024 Team Status: Inactive Member Role Status Dates Dr. Kwabena Menjivar MD Primary Care Provider Acti ve Start: May 22, 2024 End: May 22, 2024 RUSS Bueno NPC Attending Provider Active Start: May 22, 2024 End: May 22, 2024 Team Status: Active Member Role Status Dates Dr. Kwabena Menjivar MD Primary Care Provider Acti ve Start: May 25, 2024 LEONIDAS Hilton Attending Provider Active Start: May 25, 2024 LEONIDAS Hilton Referring Provider Active Start: May 25, 2024 Team Status: Inactive Member Role Status Dates Dr. Kwabena Menjivar MD Primary Care Provider Acti ve Start: May 23, 2024 End: May 23, 2024 Dr. Keven Etienne MD Attending Provider Active Start: May 23, 2024 End: May 23, 2024 Team Status: Inactive Member Role Status Dates Dr. Kwabena Menjivar MD Primary Care Provider Acti ve Start: May 30, 2024 End: May 30, 2024 Angelika Nowak NP, NP-C Attending Provider Active Start: May 30, 2024 End: May 30, 2024 Team Status: Active Member Role Status Dates Dr. Kwabena Menjivar MD Primary Care Provider Acti ve Start: August 03, 2024 Dr. Kwabena Menjivar MD Referring Provider Active Start: August 03, 2024 Dr. Ciro Diego MD Attending Provider Active Start: August 03, 2024 Team Status: Inactive Member Role Status Dates Dr. Kwabena Menjivar MD Primary Care Provider Acti ve Start: August 03, 2024 End: August 03, 2024 Dr. David Granados MD Attending Provider Active S tart: August 03, 2024 End: August 03, 2024 Team Status: Inactive Member Role Status Dates Dr. Kwabena Menjivar MD Primary Care Provider Acti ve Start: August 03, 2024 End: August 03, 2024 Dr. Kwabena Menjivar MD Referring Provider Active Start: August 03, 2024 End: August 03, 2024 Dr. Ciro Diego MD Attending Provider Active Start: August 03, 2024 End: August 03, 2024 Goals (unrecognized section and content) Goals may be documented in a n alternate sectionGoals may be documented in an alternate sectionGoals may be documented in an alternate sectionGoals may be documented in an alternate section FOR RECORDS PERTAINING TO PATIENTS WHO ARE OR HAVE BEEN ENROLLED IN A CHEMICAL DEPENDENCY/SUBSTANCEABUSE PROGRAM, SOME INFORMATION MAY BE OMITTED. This clinical summary was aggregated from multiple sources. Caution should be exercised in using it in the provision of clinical care. This summary normalizes information from multiple sources, and as a consequence, information in this document may materially change the coding, format and clinical context of patient data. In addition, data may be omitted in some cases. CLINICAL DECISIONS SHOULD BE BASED ON THE PRIMARY CLINICAL RECORDS. [facility]. provides no warranty or guarantee of the accuracy or completeness of information in this document.
--- NOTE | 2024-08-05 12:10 | CT_ITS ---
PROCEDURE: BRAIN/HEAD WITHOUT CONTRAST 08/05/2024 REASON FOR EXAM: WEAK TECHNIQUE: BRAIN/HEAD WITHOUT CONTRAST Coronal and Sagittal reconstruction series were provided. One or more dose reduction techniques were used (e.g., Automated exposure control, adjustment of the mA and/or kV according to patient size, use of iterative reconstruction technique. RADIATION DOSE SUMMARY: DLP: 796 mGycm FINDINGS: There is no acute infarct, intracranial hemorrhage, or mass effect. There is no hydrocephalus or significant midline shift. There is mild chronic microvascular ischemic changes and mild parenchymal volume loss. No acute, depressed calvarial fractures. No large scalp hematomas. Bilateral lens surgery. CT/Brain/Head without Contrast IMPRESSION: No acute intracranial process. Reading Location: [id number]
--- NOTE | 2024-08-05 12:10 | CT_ITS ---
PROCEDURE: SPINE CERVICAL WITHOUT CONTRAS 08/05/2024 REASON FOR EXAM: HX OF NECK SURGERY APRIL TECHNIQUE: SPINE CERVICAL WITHOUT CONTRAS Coronal and Sagittal reconstruction series were provided One or more dose reduction techniques were used (e.g., Automated exposure control, adjustment of the mA and/or kV according to patient size, use of iterative reconstruction technique. RADIATION DOSE SUMMARY: DLP: 1321 mGycm COMPARISON: none FINDINGS: Cervical ACDF spanning C3-C6 with interbody spacers. No acute compression deformity, fracture, or subluxation. Moderate multilevel degenerative changes with moderate multilevel central canal stenosis and foraminal stenosis due to posterior disc-osteophyte complex, facet hypertrophy, and uncovertebral hypertrophy most prominent at right C3-C4 and right C5-C6. The prevertebral soft tissues are not thickened. 1 x 1.1 cm nodule within the right thyroid gland. Left thyroid is not seen. Limited sections of the lung apices demonstrate no pneumothorax. CT/Spine Cervical without Contras IMPRESSION: No acute cervical fracture or subluxations. Moderate multilevel degenerative ch anges of the cervical spine as above. Cervical ACDF spanning C3-C6 with interbody spacers. Reading Location: [id number]
--- NOTE | 2024-08-05 12:11 | EDS_ITS ---
HPI History of Present Illness Chief Complaint: Weakness Narrative Narrative: Patient is a 83-year-old male with past medical history anxiety, IBS, depression, GERD, cervical myelopathy with surgery back in April who presents to the emergency department with chief complaint of worsening generalized weakness. Patient states that he also is having dizziness but this has been going on since surgery as well and notes that this is intermittently. He states that he feels very weak and has hard time lifting his walker with his arms. He denies any new injuries falls or trauma to his head or neck. Patient denies recent contacts. States that he has been constipated for approximately 4 days now. But states that prior to this when he was having bowel movements he denied any black stools denied any blood in his stool [facility] Medical History Cervical myelopathy Angiectasia of large intestine History of gastric polyp GERD with esophagitis Postural dizziness with near syncope Bilateral arm weakness Osteoarthritis Anxiety and depression Ventral hernia Loss of hearing Wears glasses Wears dentures Alcohol use History of IBS Heartburn Former smoker History of stress test Home Medications ?Medication ?Instructions ?Recorded ?Last Taken ?Type sennosides 8.6 mg-docusate sodium 2 tab PO BID laxativ e #0 tabs 04/27/24 Unknown Rx 50 mg tablet (Stimulant Laxative Plus) benzocaine 15 mg-menthol 3.6 mg 1 juliet mucous membrane Q2H PRN PRN 05/18/24 Unknown Rx lozenges (Sore Throat (benzocaine SORE THROAT #0 ea with menthol)) bisacodyl 10 mg rectal suppository 10 mg NC X1 PRN Con stipation #0 ea 05/18/24 Unknown Rx carboxymethylcellulose sodium 0.5 2 drp EACH EYE Q1H P RN DRY EYES #0 05/18/24 Unknown Rx % eye drops (Refresh Tears) mL food supplemt, lactose-reduced 120 ml PO 4X/DAY #0 mL 05/18/24 Unknown Rx 0.08 gram-1.5 kcal/mL oral liquid (Ensure Plus High Protein) gabapentin 100 mg capsule 100 mg PO BIDCM #0 caps 04/1 0 Unknown Rx magnesium hydroxide 400 mg/5 mL 30 ml PO X1 PRN Consti pation #0 mL 05/18/24 Unknown Rx oral suspension menthol 0.44 %-zinc oxide 20.6 % 1 applic topical BID #0 grams 05/18/24 Unknown Rx topical ointment (Calmoseptine) midodrine 5 mg tablet 10 mg (2 x 5 mg) PO 0700,110 0,1500 05/18/24 Unknown Rx #0 tabs mirtazapine 15 mg tablet 15 mg PO QHS #0 tabs 5 Unknown Rx pantoprazole 40 mg tablet,delayed 40 mg PO BID #0 tabs 05/18/24 Unknown Rx release calcium polycarbophil 625 mg 1,250 mg (2 x 625 mg) PO QDAY #180 05/25/24 Unknown Rx tablet (FiberCon) tabs hydrocortisone acetate 25 mg 25 mg NC QHS #12 ea 05/25 Unknown Rx rectal suppository (Anusol-HC) Allergy/AdvReac Type Severity Reaction Status Date / Time No Known Allergies Allergy Verified 08/05/24 11:37 Family History Father , at 40 YOA of an [place] Heart disease Other Hypertension Surgical History Status post cervical spinal fusion History of esophagogastroduodenoscopy (EGD) Hx of colonoscopy History of tonsillectomy and adenoidectomy History of appendectomy Social History household members: none and other details: He is . Ex is Nan and she still is in contact. housing: apartment number of children: 2 Smoking Status: Former smoker quit date: 02/09/68 how long ago did patient quit smokin years alcohol intake: current alcohol intake frequency: holidays/special occasions only details: Tells me that he never drinks now. Tells me he drank too much in past. substance use type: does not use ROS ROS ED ROS Narrative Constitutional: Complains of lightheadedness, dizziness as noted above denies any fevers, chills, headaches Eyes: Denies change in vision double vision blurry vision Cardiovascular: Denies chest pain Respiratory: Denies coughing wheezing shortness of breath Abdomen: Complains of constipation denies any abdominal pain nausea vomit diarrhea states he is passing gas : Denies urinary symptoms Neurological: Complains of numbness and tingling in the bilateral upper extremities in the left lower extremity that has been going on since surgery again as noted above Musculoskeletal: Denies any new back pain Skin: Denies any rashes or lesions EXAM Physical Exam Narrative Exam Narrative: General: Patient is lying bed rest comfortably did not appear to be acute distress Head: Atraumatic, normocephalic Eyes: PERRL bilaterally, EOMI by, no conjunctival injection noted Neck: Soft, supple, trachea midline Cardiovascular: Regular rate and rhythm no murmurs gallops rubs noted Respiratory: Clear to auscultation bilaterally no rales rhonchi or wheezes noted Abdomen: Soft, nondistended, no tenderness palpation Extremities: +3/5 strength noted in the bilateral upper extremities, radial pulses +2/4 in the bilateral extremities, +4/5 strength noted in the bilateral lower extremities, no pedal edema on exam Neurological: Patient following commands knew that he was at [facility] the year is 2024. Sensation is decreased but equal in the bilateral upper extremities states that this is unchanged since the surgery, rest of sensation is grossly intact Skin: Warm, dry, intact no rashes or lesions noted Const Vital Signs: 08/05/24 11:33 08/05/24 12:11 08/05/24 13:19 Temperature 98.5 F Temperature Source Oral Pulse Rate 78 Pulse Rate [Lying] 73 Pulse Rate [Sitting (for 1 minute prior to obtaining)] 72 Pulse Rate [Standing (for 1 minute prior to obtaining)] 75 Respiratory Rate 18 Respiratory Effort Normal Respiratory Pattern Normal Blood Pressure 135/104 H Blood Pressure [Lying] 168/87 H Blood Pressure [Sitting (for 1 minute prior to obtaining)] 160/74 H Blood Pressure [Standing (for 1 minute prior to obtaining)] 143/73 H Blood Pressure Mean 114 Blood Pressure Mean [Lying] 114 Blood Pressure Mean [Sitting (for 1 minute prior to obtaining)] 102 Blood Pressure Mean [Standing (for 1 minute prior to obtaining)] 96 Pulse Ox 100 Oxygen Delivery Method Room Air 08/05/24 13:31 Temperature Temperature Source Pulse Rate 67 Pulse Rate [Lying] Pulse Rate [Sitting (for 1 minute prior to obtaining)] Pulse Rate [Standing (for 1 minute prior to obtaining)] Respiratory Rate 15 Respiratory Effort Respiratory Pattern Blood Pressure 187/74 H Blood Pressure [Lying] Blood Pressure [Sitting (for 1 minute prior to obtaining)] Blood Pressure [Standing (for 1 minute prior to obtaining)] Blood Pressure Mean 111 Blood Pressure Mean [Lying] Blood Pressure Mean [Sitting (for 1 minute prior to obtaining)] Blood Pressure Mean [Standing (for 1 minute prior to obtaining)] Pulse Ox 100 Oxygen Delivery Method Room Air MDM MDM MDM Narrative Medical decision making narrative: Patient is a 83-year-old male who presented to the emergency department with a chief complaint of generalized weakness that is worsening and not feeling well. On the differential diagnosis includes but not limited to UTI, pneumonia, intracranial hemorrhage, brain mass, deconditioning. Once workup is obtained reviewed he will be reevaluated. Patient be given IV fluids for hydration. Insert patient CBC reviewed and showed no evidence leukocytosis white blood count 8.4, hemoglobin 12.3, platelet count was 208. Patient sodium was 130, potassium normal at 4.3, creatinine was 0.87. Patient's AST and ALT were 25 and 23 respectively. Patient's troponin 39 with a delta troponin pending at this point in time. Patient's lipase normal at 15, urinalysis shows negative nitrites negative leukocyte esterase have low suspicion for infection at this point in time. Patient's CT head and brain without contrast showed no acute intracranial processes. Patient CT cervical spine reviewed showed no acute cervical fracture or subluxation moderate multilevel degenerative change of the cervical spine cervical ACDF spanning C3-C6 with interbody spacers. Patient's orthostatic vital signs were positive he was given additional fluid. At this point time will discuss case with hospitalist for admission for generalized weakness, lives alone and will likely require placement for rehabilitation which family and patient is agreeable with this plan. Discussed the case with hospitalist Dr. Bradley who will accept the patient for admission. Patient was notified as well as family members at bedside they are agreeable with this plan all question concerns were answered. Lab Data Labs: Laboratory Results - last 24 hr 08/05/24 08/05/24 08/05/24 12:00 12:25 13:15 WBC 8.4 RBC 4.22 L Hgb 12.3 L Hct 37.0 L MCV 87.7 MCH 29.1 MCHC 33.2 RDW Std Deviation 41.0 RDW Coeff of Delia 12.9 Plt Count 208 MPV 8.7 Immature Gran % (Auto) 0.200 Neut % (Auto) 57.7 Lymph % (Auto) 31.4 [place] % (Auto) 8.2 Eos % (Auto) 2.0 Baso % (Auto) 0.5 Absolute Neuts (auto) 4.8 Absolute Lymphs (auto) 2.63 Nucleated RBC % 0 Sodium 138 Potassium 4.3 Chloride 103 Carbon Dioxide 23.8 Anion Gap 12 BUN 18 Creatinine 0.87 Estim Creat Clear Calc 63.33 Est GFR (MDRD) Non-Af 86 BUN/Creatinine Ratio 21.1 H Glucose 93 Lactic Acid 1.3 Calcium 9.4 Total Bilirubin 0.41 AST 25 ALT 23 Alkaline Phosphatase 120 Troponin T High Sens 39 H D Total Protein 6.4 Albumin 4.0 Globulin 2.4 Albumin/Globulin Ratio 1.7 Lipase 15 Urine Color Yellow Urine Clarity Clear Urine pH 7.0 Ur Specific Surrency 1.010 Urine Protein Negative Urine Glucose (UA) Normal Urine Ketones Negative Urine Occult Blood Negative Urine Nitrite Negative Urine Bilirubin Negative Urine Urobilinogen Normal Ur Leukocyte Esterase Negative Radiography Diagnostic Testing: Clinical Impression(s) from Imaging Studies Brain CT 08/05/24 12:10 IMPRESSION: No acute intracranial process. Reading Location: [facility] Cervical Spine CT 08/05/24 12:10 IMPRESSION: No acute cervical fracture or subluxations. Moderate multilevel degenerative changes of the cervical spine as above. Cervical ACDF spanning C3-C6 with interbody spacers. Reading Location: [facility] Discharge Plan Triage Chief Complaint: Weakness ED Provider: Kayode Woods Dx/Rx/DC Orders Clinical Impression: Orthostatic hypotension, Lightheadedness, Generalized weakness Prescriptions: No Action hydrocortisone acetate [Anusol-HC] 25 mg suppository 25 mg NC QHS Qty: 12 0RF calcium polycarbophil [FiberCon] 625 mg tablet 1,250 mg PO QDAY Qty: 180 1RF midodrine 5 mg Tablet 10 mg PO 0700,1100,1500 Qty: 0 0RF magnesium hydroxide 400 mg/5 mL Suspension 30 ml PO X1 PRN (Reason: Constipation) Qty: 0 0RF carboxymethylcellulose sodium [Refresh Tears] 0.5 % Drops 2 drp EACH EYE Q1H PRN (Reason: DRY EYES) Qty: 0 0RF bisacodyl 10 mg Suppository 10 mg NC X1 PRN (Reason: Constipation) Qty: 0 0RF pantoprazole 40 mg Tablet,Delayed Release (Dr/Ec) 40 mg PO BID Qty: 0 0RF mirtazapine 15 mg Tablet 15 mg PO QHS Qty: 0 0RF gabapentin 100 mg Capsule 100 mg PO BIDCM Qty: 0 0RF menthol-zinc oxide [Calmoseptine] 0.44-20.6 % Ointment 1 applic topical BID Qty: 0 0RF Protocol: *Topical Application Instructions APPLICATION INSTRUCTIONS: bilateral buttocks Sore Throat (benzocaine-menth) 15-3.6 mg Lozenge 1 juliet mucous membrane Q2H PRN PRN (Reason: SORE THROAT) Qty: 0 0RF Ensure Plus High Protein 0.08 gram-1.5 kcal/mL Liquid 120 ml PO 4X/DAY Qty: 0 0RF sennosides-docusate sodium [Stimulant Laxative Plus] 8.6-50 mg Tablet 2 tab PO BID Qty: 0 0RF Primary Care Provider: Kevin Menjivar Referrals: Kevin Menjivar MD [Primary Care Provider] - Print Language: Burkinan Disposition Disposition: [facility]
--- NOTE | 2024-08-05 12:35 | CM.ED ---
Social Work: Date of referral: 08/05/24 Reason for referral: Discharge Planning Referred by: ED nurse Patient provided consent to Social Work visit. Patent's ex-, now significant other, Naa, was at patient's bedside. Patient stated he has been extremely weak and stated he is not able to keep his balance and walks like a drunk. Patient fearful of falling. Patient stated following his recent surgery in April, he was first in the TCU at [facility] and from there, was transferred to [facility] which patient stated he feels like he needs to go back to. Patient stated he left because his insurance stopped paying so he had to go home before he was ready or he would have lost everything and would have had to go on Medicaid. Patient lives alone in a one-story apartment. Patient did say he has been able to make himself sandwiches, fruit and has been drinking Ensure. Patient does not feel safe being discharged home at this point due to his current weakness. Sonia Law, TEST CLERK, [employer]
[2024-08-05 12:37] LABS: Hematocrit 37.0 % (40-54); Hemoglobin 12.3 g/dL (13.0-16.5); Immature Granulocytes Count 0.020 X10^3/uL (0.0-0.0); Mean Corp Hgb Conc 33.2 g/dL (32-36); Mean Corpuscular Volume 87.7 fL (80-94); Mean Platelet Vol. 8.7 fl (6.2-12.0); NRBC Flagged by Analyzer 0 % (0-5); Platelet Count 208 K/mm3 (150-450); RBC Distribution Width CV 12.9 % (11.6-14.6); RBC Distribution Width SD 41.0 fl (35.1-43.9); Red Blood Count 4.22 M/mm3 (4.6-6.2); White Blood Count 8.4 K/mm3 (4.4-11.0)
[2024-08-05] MEDS: 0.9% Normal Saline (1000mL) 1,000 ML 999 ML IV ×2 (12:41→14:01)
[2024-08-05 13:09] LABS: AST(SGOT) 25 U/L (<=37); Alanine Aminotransfer ALT/SGPT 23 U/L (<=46); Albumin, Serum 4.0 g/dL (3.4-4.8); Alkaline Phosphatase 120 U/L (40-129); Anion Gap 12 (5-15); BUN 18 mg/dL (4-19); BUN/Creat Ratio 21.1 RATIO (10-20); Calcium,Total 9.4 mg/dL (7.6-11.0); Carbon Dioxide 23.8 mmol/L (21.0-32.0); Chloride 103 mmol/L (98-108); Estimated Creatinine Clearance 63.33 ml/min (50-250); Globulin 2.4 g/dL (2.2-4.2); Glucose 93 mg/dL (70-99); Lipase 15 U/L (13-75); Potassium 4.3 mmol/L (3.3-5.1)
[2024-08-05 13:11] LABS: Troponin T High Sensitivity 39 ng/L (<=22)
[2024-08-05 13:21] LABS: Mucous, Urine 0 SEEN /hpf (<or=2+); Red Blood Cells-Urine 0 SEEN /hpf (0-5); Squamous Epithelial Cells - UA 0 SEEN /hpf (0-5)
[2024-08-05 13:55] LABS: Color, Urine Yellow (Yellow); Glucose, Dipstick Normal (Normal); Ketone-Dipstick Negative (Negative); Leukocyte Esterase-Dipstick Negative /ul (Negative); Nitrite-Dipstick Negative (Negative); Occult Blood-Urine Negative /ul (Negative); Protein-Dipstick Negative (Negative); Specific Gravity, Urine 1.010 (1.002-1.030); Urine Bilirubin Dipstick Negative (Negative)
[2024-08-05 15:09] LABS: Troponin T High Sens 2 HR 36 ng/L (<=22)
--- OUTSIDE RECORDS SUMMARY | 2024-08-05 15:12 | XMS RPT_ITS | CCD ---
Author Organization [facility] Care Team Providers Care Oyster Opener Name Role Phone JORGE L CARTER Unavailable Unavailable KWABENA MENJIVAR Unavailable Unavailable BAO CERVANTES Unavailable Unavailable KWABENA MENJIVAR Unavailable Unavailable Otto CABELLO, Dr. Brown Primary Care Provider Mark CABELLO, Dr. Sterling Attending Provider Mark CABELLO, Dr. Sterling Emergency Provider [phone] David Granados MD Attending Provider Dr. Laureano Gallagher DO Emergency Provider Dr. Keanu Alfred DO Admit Provider Dr. Keanu Alfred DO Attending Provider Dr. Keanu Alfred DO Other Provider Dr. Yas Godinez MD Attending Provider Dr. Yas Godinez MD Other Provider Dr. Keanu Alfred DO Attending Provider Dr. Danette Sargent MD Attending Provider Dr. Ciro Diego MD Other Provider Dr. Harish Baxter MD Attending Provider Dr. Ciro Diego MD Attending Provider Dr. David Granados MD Referring Provider Dr. Harsih Baxter MD Other Provider Anita SUE-C, Ana [...] Menjivar MD, Dr. Brown Referring Provider Sukhi DINKEY LOCOMOTIVE ENGINEER-C, Sonia Attending Provider Sukhi DINKEY LOCOMOTIVE ENGINEER-C, Sonia Referring Provider Otto CABELLO, Dr. Brown [...] Sahil CABELLO, Dr. Moreira Other Provider Anita DINKEY LOCOMOTIVE ENGINEER-C, Ana Rosa Snyder Attending Provider Sementi DO, Dr. Corazon Pacheco Admit Provider Sementi DO, Dr. Corazon Pacheco Attending Provide r Sementi DO, Dr. Corazon Pacheco Referring Provide r Sementi DO, Dr. Corazon Pacheco Other Provider Awa Gamble Attending Provider Keven Etienne MD Attending Provider Unavailjacquelyn Menjivar MD, Dr. Brown Referring Provider [phone] Sukhi DINKEY LOCOMOTIVE ENGINEER-C, Sonia Attending Provider Sukhi DINKEY LOCOMOTIVE ENGINEER-C, Sonia Referring Provider Keven Etienne MD Referring Provider Unavailjacquelyn Menjivar MD, Dr. Brown Attending Provider She SUE-CAngelika Attending Provider Jaimie CABELLO, Dr. Baca Attending Provider Keven Britton Attending Unavailabl e [facility] [place] [facility] Un[facility] Keanu Alfred Admitting Unavailable [facility] [place] [facility] Unavailable Ciro Diego Consulting Unavailable Sahil, Harish Attending Unavailable SisYas david Consulting Unavailable Tima, Keanu Consulting Unavailable Sahil, Harish Consulting Unavailable Anita SUE, Ana Rosa Snyder Attending Unavailabl e [facility] [place] [facility] Unavailable Keven Britton Attending Unavailabl e Sementi, Corazon Pacheco Referring Unavaila ble [facility]available Semengavin, Corazon Pacheco Consulting Unavaila ble Sementi, Corazon Pacheco Attending Unavaila ble Sementi, Corazon Pacheco Admitting Unavaila ble [facility] [place] [facility] Unavailable Keven Britton Attending Unavailabl e Keven Britton Referring Unavailabl e [place] [facility] Unavailable Otto, Kwabena Attending Unavailable [place] Referring Unavailable [facility] Primary Care Unavailable Darwin, David Referring Unavailable Darwin, [place] Attending Unavailable SukhiToshiaSonia Attending Unavailable [place] Unavailable [place], [place] Referring Unavailable [place] Unavailable Corazon Wright Referring Unavaila ble Darwin David Attending Unavailable Sukhi, Sonia Referring Unavailable SukhiFayeSonia Attending Unavailable [place] Unavailable [place] Unavailable Ranney, Christopher Attending Unavailable Ranney, [facility] Referring Unavailable [place] Primary [facility] Unavailable Asher Flores Attending Unavailable [place] Primary [facility] Unavailable Ranney, Christopher Attending Unavailable Ranney, Christopher Referring Unavailable [place] Primary Care Unavailable Keven Britton Attending Unavailabl e Ciro Diego Attending Unavailable [facility] [place] Primary Care Unavailable She DINKEY LOCOMOTIVE ENGINEERAngelika Attending Unavailable Sonia Isbell Attending Unavailable [facility] [place] Primary Care Unavailable [place] Referring Unavailable [place] Primary Care Unavailable Danette Sargent Attending Unavailabl e [place], [place] Primary Care Unavailable Oledollye Bisi KIRKPATRICKbe Attending Unavailabl e [facility] [place] [facility] Unavailable Joarvinderi Keanu Attending Unavailable Jopperi, Keanu Admitting Unavailable Jopperi, Keanu Consulting Unavailable Siska, Yas Attending Unavailable Siska, Yas Consulting Unavailable Jopperi, Keanu Referring Unavailable Diego, Ciro Consulting Unavailable Jopperi, Keanu Attending Unavailable Sahil, Harish Referring Unavailable [facility] [place] Primary [facility] Unavailable Angelika Nowak NP Attending Unavailable [place] [place] Primary [facility] Unavailable Ciro Diego Attending Unavailable [place], Christopher Referring Unavailable [place], [place] Primary Care Unavailable Darwin, David Attending Unavailable [facility] [place] Primary Care Unavailable Edwar Etienneewongbe Attending Unavailable [place], [place] Primary Care Unavailable [place], [place] Attending Unavailable Awa Chadwick Attending Unavailable Johnathon Ciro Attending Unavailable Sukhi, Sonia Referring Unavailable SukhiFayeSonia Attending Unavailable [place] Unavailable Bisi Brittonbe Attending Unavailabl e [place], [place] Primary Care Unavailable Oleghe OLS, Efewongbe [facility] Un[facility] Keven Britton Attending UnavailKeven Dorman Referring [facility] Unavailable Ciro Diego Attending Unavailable [facility] Unavailable [facility] Referring Unavailable [facility] Unavailable David Granados Attending Unavailable [facility] Unavailable Keanu Alfred Admitting Unavailable Ciro Diego Consulting Unavailable Harish Baxter Attending Unavailable Yas Godinez Consulting Unavailable Keanu Alfred Consulting Unavailable [facility] Unavailable Corazon Wright Referring Unavaila ble Sementi, [...] chew docusate sodium 50 mg / sennosides, custodial 8.6 mg oral tablet (9 sources) Start: [...] AT BEDTIME 0 May 18, 2024 12:00am Fleischmanns (Nk) (1 source) Start: 02-26-2024 [place] (Nk) A ctive February 26, 2024 1:00am [...] Cerv Spine 2 or 3 Views Normal [facility] [place] Orthopedic Visit Reporton Orthopedic Visit Report Normal [facility] Absolute lymphocyte countOrd ered By: Kwabena Menjivar on 07-20-2024 Lymphocytes Auto (Unsp spec) [#/Vol] 2.92 10*3/uL 0.83-4.51 [facility] Anion gap in Serum or Plasma Ordered By: Kwabena Menjivar on 07-20-2024 Anion gap [Moles/Vol] 13 mmol/L 5-15 [facility] Automated lymphocyte count a s percentage of total leukocytesOrdered By: Kwabena Menjivar on 07-20-2024 Lymphocytes/100 WBC Auto (Unsp spec) 35.4 % 19-41 [facility] BUN/creatinine ratioOrdered By: Kwabena Menjivar on 07-20-2024 Urea nitrogen/Creatinine [Mass ratio] 12.9 mg/mg 10-20 [facility] Basophil percentageOrdered B y: Kwabena Menjivar on 07-20-2024 Basophils/100 WBC (Bld) 0.6 % 0-1 [facility] Bilirubin, totalOrdered By: Kwabena Menjivar on 07-20-2024 Bilirubin [Mass/Vol] 0.44 mg/dL 0.00-1.[address] [facility] CBC W/Diff, Automatedon 07-09-2024 Absolute Lymph 2.92 X10 3/uL Normal 0.83-4.51 [facility] Comment on above: Order Comment: Order Date: 07/20/24Order Info: [id number] - CBCDOrder Date: 10/27/23Order Info: [id number] - CBC Performed By: #### L 100.0100, L501.9520, L400.0001, L500.4050 ####[facility] [address] [place], [address] Absolute Neut 4.3 X10 3/uL Normal 2.0-7.7 [facility] Comment on above: Order Comment: Order Date: 07/20/24Order Info: [id number] - CBCDOrder Date: 10/27/23Order Info: [id number] - CBC Performed By: #### L 100.0100, L501.9520, L400.0001, L500.4050 ####[facility] [address] [place], [address] Basophils/100 WBC (Bld) 0.6 % Normal 0-1 [facility] Comment on above: Order Comment: Order Date: 07/20/24Order Info: [id number] - CBCDOrder Date: 10/27/23Order Info: [id number] - CBC Performed By: #### L 100.0100, L501.9520, L400.0001, L500.4050 ####[facility] [address] [place], [address] Eosinophils/100 WBC (Bld) 3.3 % Normal 0-5 [facility] Comment on above: Order Comment: Order Date: 07/20/24Order Info: [id number] - CBCDOrder Date: 10/27/23Order Info: [id number] - CBC Performed By: #### L 100.0100, L501.9520, L400.0001, L500.4050 ####[facility] [address] [place], [address] Erythrocyte distribution width (RBC) [Ratio] 13.1 % Normal 11.6-14.6 [facility] Comment on above: Order Comment: Order Date: 07/20/24Order Info: [id number] - CBCDOrder Date: 10/27/23Order Info: [id number] - CBC Performed By: #### L 100.0100, L501.9520, L400.0001, L500.4050 ####[facility] [address] [place], [address] Hematocrit (Bld) [Volume fraction] 40.4 % Normal 40-54 [facility] Comment on above: Order Comment: Order Date: 07/20/24Order Info: [id number] - CBCDOrder Date: 10/27/23Order Info: [id number] - CBC Performed By: #### L 100.0100, L501.9520, L400.0001, L500.4050 ####[facility] [address] [place], [address] Hemoglobin (Bld) [Mass/Vol] 13.3 g/dL Normal 13.0-16.5 [facility] Comment on above: Order Comment: Order Date: 07/20/24Order Info: [id number] - CBCDOrder Date: 10/27/23Order Info: [id number] - CBC Performed By: #### L 100.0100, L501.9520, L400.0001, L500.4050 ####[facility] [address] [place], [address] IG% 0.200 Normal 0.0-0.9 [facility] Comment on above: Order Comment: Order Date: 07/20/24Order Info: [id number]- - CBCDOrder Date: 10/27/23Order Info: [id number] - CBC Result Comment: IG% - Immature Granulocytes (promyelocytes, myelocytes andmetamyelocytes) > 1% indicates that a LEFT SHIFT is Present. Performed By: #### L 100.0100, L501.9520, L400.0001, L500.4050 ####[facility] [address] [place], [address] Lymphocytes/100 WBC (Bld) 35.4 % Normal 19-41 [facility] Comment on above: Order Comment: Order Date: 07/20/24Order Info: [id number]- - CBCDOrder Date: 10/27/23Order Info: [id number] - CBC Performed By: #### L 100.0100, L501.9520, L400.0001, L500.4050 ####[facility] [address] [place], [address] MCH (RBC) [Entitic mass] 29.4 pg Normal 27.0-32.0 [facility] Comment on above: Order Comment: Order Date: 07/20/24Order Info: [id number]- - CBCDOrder Date: 10/27/23Order Info: [id number] - CBC Performed By: #### L 100.0100, L501.9520, L400.0001, L500.4050 ####[facility] [address] [place], [address] MCHC (RBC) [Mass/Vol] 32.9 g/dL Normal 32-36 [facility] Comment on above: Order Comment: Order Date: 07/20/24Order Info: [id number]- - CBCDOrder Date: 10/27/23Order Info: [id number] - CBC Performed By: #### L 100.0100, L501.9520, L400.0001, L500.4050 ####[facility] [address] [place], [address] MCV (RBC) [Entitic vol] 89.2 fL Normal 80-94 [facility] Comment on above: Order Comment: Order Date: 07/20/24Order Info: [id number]- - CBCDOrder Date: 10/27/23Order Info: [id number] - CBC Performed By: #### L 100.0100, L501.9520, L400.0001, L500.4050 ####[facility] [address] [place], [address] Monocytes/100 WBC (Bld) 8.4 % Normal 0-10 [facility] Comment on above: Order Comment: Order Date: 07/20/24Order Info: [id number]- - CBCDOrder Date: 10/27/23Order Info: [id number] - CBC Performed By: #### L 100.0100, L501.9520, L400.0001, L500.4050 ####[facility] [address] [place], [address] Neutrophils/100 WBC (Bld) 52.1 % Normal 47-70 [facility] Comment on above: Order Comment: Order Date: 07/20/24Order Info: [id number] - CBCDOrder Date: 10/27/23Order Info: [id number] - CBC Performed By: #### L 100.0100, L501.9520, L400.0001, L500.4050 ####[facility] [address] [place], [address] Nucleated RBC (Bld) [#/Vol] 0 10*3/uL Normal 0-5 [facility] Comment on above: Order Comment: Order Date: 07/20/24Order Info: [id number] - CBCDOrder Date: 10/27/23Order Info: [id number] - CBC Performed By: #### L 100.0100, L501.9520, L400.0001, L500.4050 ####[facility] [address] [place], [address] Platelet mean volume (Bld) [Entitic vol] 9.1 fL Normal 6.2-12.0 [facility] Comment on above: Order Comment: Order Date: 07/20/24Order Info: [id number] - CBCDOrder Date: 10/27/23Order Info: [id number] - CBC Performed By: #### L 100.0100, L501.9520, L400.0001, L500.4050 ####[facility] [address] [place], [address] Platelets (Bld) [#/Vol] 242 10*3/uL Normal 150-450 [facility] Comment on above: Order Comment: Order Date: 07/20/24Order Info: [id number] - CBCDOrder Date: 10/27/23Order Info: [id number] - CBC Performed By: #### L 100.0100, L501.9520, L400.0001, L500.4050 ####[facility] [address] [place], [address] RBC (Bld) [#/Vol] 4.53 10*6/uL Low 4.6-6.2 [facility] Comment on above: Order Comment: Order Date: 07/20/24Order Info: [id number] - CBCDOrder Date: 10/27/23Order Info: [id number] - CBC Performed By: #### L 100.0100, L501.9520, L400.0001, L500.4050 ####[facility] [address] [place], [address] RDW SD 43.0 fl Normal 35.1-43.9 [facility] Comment on above: Order Comment: Order Date: 07/20/24Order Info: [id number] - CBCDOrder Date: 10/27/23Order Info: [id number] - CBC Performed By: #### L 100.0100, L501.9520, L400.0001, L500.4050 ####[facility] [address] [place], [address] WBC (Bld) [#/Vol] 8.3 10*3/uL Normal 4.4-11.0 [facility] Comment on above: Order Comment: Order Date: 07/20/24Order Info: [id number] - CBCDOrder Date: 10/27/23Order Info: [id number] - CBC Performed By: #### L 100.0100, L501.9520, L400.0001, L500.4050 ####[facility] [address] [place], [address] Calculated very low density lipoprotein (VLDL) cholesterol measurementOrdered By: Kwabena Menjivar on 07-20-2024 Calculated very low density lipoprotein (VLDL) cholesterol measurement 27 mg/dL 5-40 [facility] Carbon dioxide, total [Moles /volume] in Central venous bloodOrdered By: Kwabena Menjivar on 07-20-2024 CO2 [Moles/Vol] 24.7 mmol/L 21.0-32.0 [facility] Chloride assayOrdered By: Kristine Menjivar on 07-20-2024 Chloride [Moles/Vol] 104 mmol/L 98-[address] [facility] Comprehensive Metabolic Prof ilon 07-20-2024 Albumin [Mass/Vol] 4.3 g/dL Normal 3.4-4.8 [facility] Comment on above: Order Comment: Order Date: 10/27/23Order Info: [id number] - BMPOrder Date: 07/20/24Order Info: [id number] - CMPOrder Info: [id number] - LIPIDOrder Info: [id number] - TSH Performed By: #### L 100.0100, L501.9520, L400.0001, L500.4050 ####[facility] [address] [place], [address] Albumin/Globulin [Mass ratio] 1.6 {ratio} Normal 0.9-2.4 [facility] Comment on above: Order Comment: Order Date: 10/27/23Order Info: 666- - BMPOrder Date: 07/20/24Order Info: [id number] - CMPOrder Info: [id number] - LIPIDOrder Info: [id number] - TSH Performed By: #### L 100.0100, L501.9520, L400.0001, L500.4050 ####[facility] [address] [place], [address] ALK PHOS 133 U/L High 40-129 [facility] Comment on above: Order Comment: Order Date: 10/27/23Order Info: 666- - BMPOrder Date: 07/20/24Order Info: [id number]- - CMPOrder Info: [id number] - LIPIDOrder Info: [id number] - TSH Performed By: #### L 100.0100, L501.9520, L400.0001, L500.4050 ####[facility] [address] [place], [address] ALT [Catalytic activity/Vol] 33 U/L Normal <=46 [facility] Comment on above: Order Comment: Order Date: 10/27/23Order Info: [id number] - BMPOrder Date: 07/20/24Order Info: [id number]- - CMPOrder Info: [id number] - LIPIDOrder Info: [id number] - TSH Performed By: #### L 100.0100, L501.9520, L400.0001, L500.4050 ####[facility] [address] [place], [address] AST [Catalytic activity/Vol] 30 U/L Normal <=37 [facility] Comment on above: Order Comment: Order Date: 10/27/23Order Info: 666- - BMPOrder Date: 07/20/24Order Info: [id number]- - CMPOrder Info: [id number] - LIPIDOrder Info: [id number] - TSH Performed By: #### L 100.0100, L501.9520, L400.0001, L500.4050 ####[facility] [address] [place], [address] Bilirubin [Mass/Vol] 0.44 mg/dL Normal 0.00-1.[address] [facility] Comment on above: Order Comment: Order Date: 10/27/23Order Info: 666- - BMPOrder Date: 07/20/24Order Info: [id number] - CMPOrder Info: [id number] - LIPIDOrder Info: [id number] - TSH Performed By: #### L 100.0100, L501.9520, L400.0001, L500.4050 ####[facility] [address] [place], [address] BUN/CRE 12.9 RATIO Normal 10-20 [facility] Comment on above: Order Comment: Order Date: 10/27/23Order Info: 666- - BMPOrder Date: 07/20/24Order Info: [id number]- - CMPOrder Info: [id number] - LIPIDOrder Info: [id number] - TSH Performed By: #### L 100.0100, L501.9520, L400.0001, L500.4050 ####[facility] [address] [place], [address] Calcium [Mass/Vol] 9.6 mg/dL Normal 7.6-11.0 [facility] Comment on above: Order Comment: Order Date: 10/27/23Order Info: 666- - BMPOrder Date: 07/20/24Order Info: 86-1 - CMPOrder Info: [id number] - LIPIDOrder Info: [id number] - TSH Performed By: #### L 100.0100, L501.9520, L400.0001, L500.4050 ####[facility] [address] [place], [address] Chloride [Moles/Vol] 104 mmol/L Normal 98-[address] [facility] Comment on above: Order Comment: Order Date: 10/27/23Order Info: 666- - BMPOrder Date: 07/20/24Order Info: 07-1 - CMPOrder Info: [id number] - LIPIDOrder Info: [id number] - TSH Performed By: #### L 100.0100, L501.9520, L400.0001, L500.4050 ####[facility] [address] [place], [address] CO2 [Moles/Vol] 24.7 mmol/L Normal 21.0-32.0 [facility] Comment on above: Order Comment: Order Date: 10/27/23Order Info: 666- - BMPOrder Date: 07/20/24Order Info: [id number] - CMPOrder Info: [id number] - LIPIDOrder Info: [id number] - TSH Performed By: #### L 100.0100, L501.9520, L400.0001, L500.4050 ####[facility] [address] [place], [address] Creatinine [Mass/Vol] 1.07 mg/dL Normal 0.70-1.20 [facility] Comment on above: Order Comment: Order Date: 10/27/23Order Info: 666- - BMPOrder Date: 07/20/24Order Info: [id number]- - CMPOrder Info: [id number] - LIPIDOrder Info: [id number] - TSH Performed By: #### L 100.0100, L501.9520, L400.0001, L500.4050 ####[facility] [address] [place], [address] GAP 13 Normal 5-15 [facility] Comment on above: Order Comment: Order Date: 10/27/23Order Info: 666- - BMPOrder Date: 07/20/24Order Info: 07- - CMPOrder Info: [id number] - LIPIDOrder Info: [id number] - TSH Performed By: #### L 100.0100, L501.9520, L400.0001, L500.4050 ####[facility] [address] [place], [place], [address] GFR/1.73 sq M.predicted among non-blacks MDRD (S/P/Bld) [Vol rate/Area] 69 mL/min/{1.73_m2} Normal >60 [facility] Comment on above: Order Comment: Order Date: 10/27/23Order Info: 06-1 - BMPOrder Date: 07/20/24Order Info: [id number] - CMPOrder Info: [id number] - LIPIDOrder Info: [id number] - TSH Result Comment: mL/m in/1.73m2 CKD-EPI Creatinine Equation (2020) Performed By: #### L 100.0100, L501.9520, L400.0001, L500.4050 ####[facility] [address] [place], [address] Globulin (S) [Mass/Vol] 2.6 g/dL Normal 2.2-4.2 [facility] Comment on above: Order Comment: Order Date: 10/27/23Order Info: 666- - BMPOrder Date: 07/20/24Order Info: 86-1 - CMPOrder Info: [id number] - LIPIDOrder Info: [id number] - TSH Performed By: #### L 100.0100, L501.9520, L400.0001, L500.4050 ####[facility] [address] [place], [address] Glucose [Mass/Vol] 86 mg/dL Normal 70-99 [facility] Comment on above: Order Comment: Order Date: 10/27/23Order Info: [id number] - BMPOrder Date: 07/20/24Order Info: [id number] - CMPOrder Info: [id number] - LIPIDOrder Info: [id number] - TSH Performed By: #### L 100.0100, L501.9520, L400.0001, L500.4050 ####[facility] [address] [place], [address] Potassium [Moles/Vol] 4.3 mmol/L Normal 3.3-5.1 [facility] Comment on above: Order Comment: Order Date: 10/27/23Order Info: [id number] - BMPOrder Date: 07/20/24Order Info: [id number] - CMPOrder Info: [id number] - LIPIDOrder Info: [id number] - TSH Performed By: #### L 100.0100, L501.9520, L400.0001, L500.4050 ####[facility] [address] [place], [address] Sodium [Moles/Vol] 142 mmol/L Normal 133-145 [facility] Comment on above: Order Comment: Order Date: 10/27/23Order Info: [id number] - BMPOrder Date: 07/20/24Order Info: [id number]- - CMPOrder Info: [id number] - LIPIDOrder Info: 6-3 - TSH Performed By: #### L 100.0100, L501.9520, L400.0001, L500.4050 ####[facility] [address] [place], [address] T PROT 6.9 g/dL Normal 5.9-8.4 [facility] Comment on above: Order Comment: Order Date: 10/27/23Order Info: [id number] - BMPOrder Date: 07/20/24Order Info: [id number]- - CMPOrder Info: [id number] - LIPIDOrder Info: [id number] - TSH Performed By: #### L 100.0100, L501.9520, L400.0001, L500.4050 ####[facility] [address] [place], [address] Urea nitrogen [Mass/Vol] 14 mg/dL Normal 4-19 [facility] Comment on above: Order Comment: Order Date: 10/27/23Order Info: [id number] BMPOrder Date: 07/20/24Order Info: [id number] - CMPOrder Info: [id number] - LIPIDOrder Info: [id number] - TSH Performed By: #### L 100.0100, L501.9520, L400.0001, L500.4050 ####[facility] [address] [place], [place], [address] Eosinophil percentageOrdered By: Kwabena Menjivar on 07-20-2024 Eosinophils/100 WBC (Bld) 3.3 % 0-5 [facility] Erythrocyte distribution wid th ratioOrdered By: Kwabena Menjivar on 07-20-2024 Erythrocyte distribution width (RBC) [Ratio] 13.1 % 11.6-14.6 [facility] Erythrocyte distribution wid th standard deviationOrdered By: Kwabena Menjivar on 07-20-2024 Erythrocyte distribution width (RBC) [Ratio] 43.0 fl 35.1-43.9 [facility] Glomerular filtration rate ( GFR) estimation/1.73 sq m using serum, plasma, or whole bOrdered By: Kwabena Menjivar on 07-20-2024 GFR/1.73 sq M.predicted among non-blacks MDRD (S/P/Bld) [Vol rate/Area] 69 mL/min/{1.73_m2} >60 [facility] Hematocrit Auto (Bld) [Volum e fraction]Ordered By: Kwabena Menjivar on 07-20-2024 Hematocrit (Bld) [Volume fraction] 40.4 % 40-54 [facility] Hemoglobin measurementOrdere d By: Kwabena Menjivar on 07-20-2024 Hemoglobin (Bld) [Mass/Vol] 13.3 g/dL 13.0-16.5 [facility] Immature granulocytes/100 WB C Auto (Bld)Ordered By: Kwabena Menjivar on 07-20-2024 Immature granulocytes/100 WBC (Bld) 0.200 % 0.0-0.9 [facility] LDL calc ser/plasOrdered By: Kwabena Menjivar on 07-20-2024 Cholesterol in LDL [Mass/Vol] 105 mg/dL [facility] Lipid Profileon 07-20-2024 CHOL:HDL 3.52 Normal [facility] Comment on above: Order Comment: Order Date: 10/27/23Order Info: [id number] - BMPOrder Date: 07/20/24Order Info: [id number] - CMPOrder Info: [id number] - LIPIDOrder Info: [id number] - TSH Performed By: #### L 500.4100 ####[facility] [address] [place], [address] Cholesterol [Mass/Vol] 185 mg/dL Normal <=200 [facility] Comment on above: Order Comment: Order Date: 10/27/23Order Info: [id number] - BMPOrder Date: 07/20/24Order Info: 07-1 - CMPOrder Info: [id number] - LIPIDOrder Info: 3 - TSH Result Comment: Chol esterol level, Desirable <200 mg/dLBorderline high cholesterol 200-239 mg/dLHigh cholesterol >=240 mg/dLRecommendations of the NCEP Adult Treatment Panel for thefollowing risk-cutoff thresholds for the [place] Americans[facility] centerulation. Performed By: #### L 500.4100 ####[facility] [address] [place], [address] Cholesterol in HDL [Mass/Vol] 53 mg/dL Normal [facility] Comment on above: Order Comment: Order [...] and age. Performed By: #### L 500.4100 ####[facility] [address] [place], [address] Cholesterol in LDL [Mass/Vol] 105 mg/dL Normal [facility] Comment on above: Order Comment: Order Date: 10/27/23Order Info: 06- - BMPOrder Date: 07/20/24Order Info: 07-1 - CMPOrder Info: [id number] - LIPIDOrder Info: [id number] - TSH Result Comment: Bord wwjfgx=556-459 mg/dL Higher Wifb=047 mg/dL or greater Performed By: #### L 500.4100 ####[facility] [address] [place], [address] Cholesterol in VLDL [Mass/Vol] 27 mg/dL Normal 5-40 [facility] Comment on above: Order Comment: Order Date: 10/27/23Order Info: [id number] - BMPOrder Date: 07/20/24Order Info: [id number] - CMPOrder Info: [id number] - LIPIDOrder Info: [id number] - TSH Performed By: #### L 500.4100 ####[facility] [address] [place], [place], [address] Triglyceride [Mass/Vol] 136 mg/dL Normal [facility] Comment on above: Order Comment: Order Date: 10/27/23Order Info: [id number] - BMPOrder Date: 07/20/24Order Info: [id number] - CMPOrder Info: [id number] - LIPIDOrder Info: [id number] - TSH Result Comment: The drugs N-Acetylcysteine and Metamizole may falselydepress this assay.Normal range: <150 mg/dLBorderline High: 150-199 mg/dLHigh: 200-499 mg/dLVery High: >500 mg/dL Performed By: #### L 500.4100 ####[facility] [address] [place], [address] MCV (mean corpuscular volume ) determinationOrdered By: Kwabena Menjivar on 07-20-2024 MCV (RBC) [Entitic vol] 89.2 fL 80-94 [facility] Mean corpuscular hemoglobin (MCH) determinationOrdered By: Kwabena Menjivar on 07-20-2024 MCH (RBC) [Entitic mass] 29.4 pg 27.0-32.0 [facility] Monocyte percentageOrdered B y: Kwabena Menjivar on 07-20-2024 Monocytes/100 WBC (Bld) 8.4 % 0-10 [facility] Neutrophil percentageOrdered By: Kwabena Menjivar on 07-20-2024 Neutrophils/100 WBC (Bld) 52.1 % 47-70 [facility] No Panel InformationOrdered By: Kwabena Menjivar on 07-20-2024 30 U/L <38 [facility] Platelet countOrdered By: Kristine Menjivar on 07-20-2024 Platelets (Bld) [#/Vol] 242 10*3/uL 150-450 [facility] Potassium measurement (mass/ volume)Ordered By: Kwabena Menjivar on 07-20-2024 Potassium (Unsp spec) [Mass/Vol] 4.3 mmol/L 3.3-5.1 [facility] RBC Auto (Bld) [#/Vol]Ordere d By: Kwabena Menjivar on 07-20-2024 RBC (Bld) [#/Vol] 4.53 10*6/uL Low 4.6-6.2 [facility] Serum creatinine measurement (mass/volume)Ordered By: Kwabena Menjivar on 07-20-2024 Creatinine [Mass/Vol] 1.07 mg/dL 0.70-1.20 [facility] Serum globulin measurementOr dered By: Kwabena Menjivar on 07-20-2024 Globulin (S) [Mass/Vol] 2.6 g/dL 2.2-4.2 [facility] Serum glucose measurement (m ass/volume)Ordered By: Kwabena Menjivar on 07-20-2024 Glucose [Mass/Vol] 86 mg/dL 70-99 [facility] Serum or plasma alanine olmedo otransferase (ALT) measurementOrdered By: Kwabena Menjivar on 07-20-2024 ALT [Catalytic activity/Vol] 33 U/L <47 [facility] Serum or plasma albumin ratna urement (mass/volume)Ordered By: Kwabena Menjivar on 07-20-2024 Albumin [Mass/Vol] 4.3 g/dL 3.4-4.8 [facility] Serum or plasma albumin/glob ulin mass ratioOrdered By: Kwabena Menjivar on 07-20-2024 Albumin/Globulin [Mass ratio] 1.6 {ratio} 0.9-2.4 [facility] Serum or plasma alkaline garry sphatase measurementOrdered By: Kwabena Menjivar on 07-20-2024 ALP [Catalytic activity/Vol] 133 U/L High 40-129 [facility] Serum or plasma calcium ratna urement (mass/volume)Ordered By: Kwabena Menjivar on 07-20-2024 Calcium [Mass/Vol] 9.6 mg/dL 7.6-11.0 [facility] Serum or plasma cholesterol in HDL measurement (mass/volume)Ordered By: Kwabena Menjivar on 07-20-2024 Cholesterol in HDL [Mass/Vol] 53 mg/dL >40 [facility] Serum or plasma cholesterol measurement (mass/volume)Ordered By: Kwabena Menjivar on 07-20-2024 Cholesterol [Mass/Vol] 185 mg/dL <201 [facility] Serum or plasma urea nitroge n measurement (mass/volume)Ordered By: Kwabena Menjivar on 07-20-2024 Urea nitrogen [Mass/Vol] 14 mg/dL 4-19 [facility] Sodium levelOrdered By: Akhil Menjivar on 07-20-2024 Sodium [Moles/Vol] 142 mmol/L 133-145 [facility] TSH DL <= 0.005 mIU/L QnOrde red By: Kwabena Menjivar on 07-20-2024 TSH Qn 1.580 uIU/mL 0.300-4.200 [facility] Thyroid Stim Hormone (TSH)on 07-20-2024 TSH 1.580 uIU/mL Normal 0.300-4.200 [facility] Comment on above: Order Comment: Order Date: 10/27/23Order Info: [id number] - BMPOrder Date: 07/20/24Order Info: [id number] - CMPOrder Info: [id number] - LIPIDOrder Info: [id number] - TSH Performed By: #### L 100.0100, L501.9520, L400.0001, L500.4050 ####[facility] [address] [place], [address] Total proteinOrdered By: Blayne Menjivar on 07-20-2024 Protein [Mass/Vol] 6.9 g/dL 5.9-8.4 [facility] Urinalysis, Completeon 07-20 BACTERIA 0 SEEN Normal None Seen [facility] Comment on above: Order Comment: Order Date: 07/20/24Order Info: [id number] - UACCOLLECTOR TO SPECIFY Result Comment: UTO Performed By: #### L 100.0100, L501.9520, L400.0001, L500.4050 ####[facility] [address] [place], [address] EPI,SQUAMOUS 0 SEEN Normal 0-5 [facility] Comment on above: Order Comment: Order Date: 07/20/24Order Info: [id number] - UACCOLLECTOR TO SPECIFY Result Comment: UTO Performed By: #### L 100.0100, L501.9520, L400.0001, L500.4050 ####[facility] [address] [place], [address] Mucus Ql (Urine sed) 0 SEEN Normal [facility] Comment on above: Order Comment: Order Date: 07/20/24Order Info: [id number] - UACCOLLECTOR TO SPECIFY Result Comment: UTO Performed By: #### L 100.0100, L501.9520, L400.0001, L500.4050 ####[facility] [address] [place], [address] RBC 0 SEEN Normal 0-5 [facility] Comment on above: Order Comment: Order Date: 07/20/24Order Info: [id number] - UACCOLLECTOR TO SPECIFY Result Comment: UTO Performed By: #### L 100.0100, L501.9520, L400.0001, L500.4050 ####[facility] [address] [place], [address] WBC 0 SEEN Normal [address] [place] [address] Comment on above: Order Comment: Order Date: 07/20/24Order Info: [id number] - UACCOLLECTOR TO SPECIFY Result Comment: UTO Performed By: #### L 100.0100, L501.9520, L400.0001, L500.4050 ####[facility] [address] [place], [address] BILIRUBIN URINE Normal Negative [facility] Comment on above: Order Comment: Order Date: 07/20/24Order Info: [id number] - UACCOLLECTOR TO SPECIFY Result Comment: UTO Performed By: #### L 100.0100, L501.9520, L400.0001, L500.4050 ####[facility] [address] [place], [address] Clarity (U) Normal Clear [facility] Comment on above: Order Comment: Order Date: 07/20/24Order Info: [id number] - UACCOLLECTOR TO SPECIFY Result Comment: UTO Performed By: #### L 100.0100, L501.9520, L400.0001, L500.4050 ####[facility] [address] [place], [address] Color (U) Normal Yellow [facility] Comment on above: Order Comment: Order Date: 07/20/24Order Info: [id number] - UACCOLLECTOR TO SPECIFY Result Comment: UTO Performed By: #### L 100.0100, L501.9520, L400.0001, L500.4050 ####[facility] [address] [place], [address] GLUCOSE, UR Normal Normal [facility] Comment on above: Order Comment: Order Date: 07/20/24Order Info: [id number] - UACCOLLECTOR TO SPECIFY Result Comment: UTO Performed By: #### L 100.0100, L501.9520, L400.0001, L500.4050 ####[facility] [address] [place], [address] KETONE UR Normal Negative [facility] Comment on above: Order Comment: Order Date: 07/20/24Order Info: [id number] - UACCOLLECTOR TO SPECIFY Result Comment: UTO Performed By: #### L 100.0100, L501.9520, L400.0001, L500.4050 ####[facility] [address] [place], [address] LEUK ESTERASE Normal Negative [facility] Comment on above: Order Comment: Order Date: 07/20/24Order Info: [id number] - UACCOLLECTOR TO SPECIFY Result Comment: UTO Performed By: #### L 100.0100, L501.9520, L400.0001, L500.4050 ####[facility] [address] [place], [address] Nitrite Ql (U) Normal Negative [facility] Comment on above: Order Comment: Order Date: 07/20/24Order Info: [id number] - UACCOLLECTOR TO SPECIFY Result Comment: UTO Performed By: #### L 100.0100, L501.9520, L400.0001, L500.4050 ####[facility] [address] [place], [address] OCCULT BLOOD-UR Normal Negative [facility] Comment on above: Order Comment: Order Date: 07/20/24Order Info: [id number] - UACCOLLECTOR TO SPECIFY Result Comment: UTO Performed By: #### L 100.0100, L501.9520, L400.0001, L500.4050 ####[facility] [address] [place], [address] pH UR Normal 5.0 - 8.0 [facility] Comment on above: Order Comment: Order Date: 07/20/24Order Info: [id number] - UACCOLLECTOR TO SPECIFY Result Comment: UTO Performed By: #### L 100.0100, L501.9520, L400.0001, L500.4050 ####[facility] [address] [place], [address] PROT DIPSTX Normal Negative [facility] Comment on above: Order Comment: Order Date: 07/20/24Order Info: [id number] - UACCOLLECTOR TO SPECIFY Result Comment: UTO Performed By: #### L 100.0100, L501.9520, L400.0001, L500.4050 ####[facility] [address] [place], [address] SP.GR. DIPSTX Normal 1.002-1.030 [facility] Comment on above: Order Comment: Order Date: 07/20/24Order Info: [id number] - UACCOLLECTOR TO SPECIFY Result Comment: UTO Performed By: #### L 100.0100, L501.9520, L400.0001, L500.4050 ####[facility] [address] [place], [address] UR Preservative Normal [facility] Comment on above: Order Comment: Order Date: 07/20/24Order Info: [id number] - UACCOLLECTOR TO SPECIFY Result Comment: UTO Performed By: #### L 100.0100, L501.9520, L400.0001, L500.4050 ####[facility] [address] [place], [address] UROBILI Normal Normal [facility] Comment on above: Order Comment: Order Date: 07/20/24Order Info: [id number] - UACCOLLECTOR TO SPECIFY Result Comment: UTO Performed By: #### L 100.0100, L501.9520, L400.0001, L500.4050 ####[facility] [address] [place], [address] Vitamin D,25 Hydroxyon 07-20 Vitamin D 25-OH 45.1 ng/mL Normal 30-100 [facility] Comment on above: Order Comment: Order Date: 10/27/23Order Info: [id number] - BMPOrder Date: 07/20/24Order Info: [id number] - CMPOrder Info: [id number] - LIPIDOrder Info: [id number] - TSH Result Comment: Bethany min D StatusDeficiency: <20 ng/mL (50nmol/L)Insufficiency: 20-30 ng/mL (50-75 nmol/L)Sufficiency: 30-100 ng/mL (75-250 nmol/L)Toxicity: >100 ng/mL (>250 nmol/L) Performed By: #### L 506.1001 ####[facility] [address] [place], [address] White blood cell (WBC) count Ordered By: Kwabena Menjivar on 07-20-2024 WBC (Bld) [#/Vol] 8.3 10*3/uL 4.4-11.0 [facility] Wrist min 3 Viewson 07-21-19 25 Wrist min 3 Views Normal [facility] Absolute lymphocyte countOrd ered By: Keven Etienne on 07-11-2024 Lymphocytes Auto (Unsp spec) [#/Vol] 2.74 10*3/uL 0.83-4.51 [facility] Anion gap in Serum or Plasma Ordered By: Keven Etienne on 07-11-2024 Anion gap [Moles/Vol] 10 mmol/L 5-15 [facility] Automated lymphocyte count a s percentage of total leukocytesOrdered By: Keven Etienne on 07-11-2024 Lymphocytes/100 WBC Auto (Unsp spec) 40.8 % 19-41 [facility] BUN/creatinine ratioOrdered By: Keven Etienne on 07-11-2024 Urea nitrogen/Creatinine [Mass ratio] 22.0 mg/mg High 10-20 [facility] Basophil percentageOrdered B y: Keven Etienne on 07-11-2024 Basophils/100 WBC (Bld) 0.6 % 0-1 [facility] [place] Carbon dioxide, total [Moles /volume] in Central venous bloodOrdered By: Keven Etienne on 07-11-2024 CO2 [Moles/Vol] 25.7 mmol/L 21.0-32.0 [facility] Chloride assayOrdered By: Edwar Etienne on 06-03-2025 Chloride [Moles/Vol] 104 mmol/L 98-[address] [facility] Eosinophil percentageOrdered By: Keven Etienne on 07-11-2024 Eosinophils/100 WBC (Bld) 6.1 % High 0-5 [facility] Erythrocyte distribution wid th ratioOrdered By: Keven Etienne on 07-11-2024 Erythrocyte distribution width (RBC) [Ratio] 13.1 % 11.6-14.6 [facility] Erythrocyte distribution wid th standard deviationOrdered By: Keven Etienne on 07-11-2024 Erythrocyte distribution width (RBC) [Ratio] 42.7 fl 35.1-43.9 [facility] Glomerular filtration rate ( GFR) estimation/1.73 sq m using serum, plasma, or whole bOrdered By: Keven Etienne on 07-11-2024 GFR/1.73 sq M.predicted among non-blacks MDRD (S/P/Bld) [Vol rate/Area] 87 mL/min/{1.73_m2} >60 [facility] Hematocrit Auto (Bld) [Volum e fraction]Ordered By: Keven Etienne on 07-11-2024 Hematocrit (Bld) [Volume fraction] 35.5 % Low 40-54 [facility] Hemoglobin measurementOrdere d By: Keven Etienne on 07-11-2024 Hemoglobin (Bld) [Mass/Vol] 11.9 g/dL Low 13.0-16.5 [facility] Immature granulocytes/100 WB C Auto (Bld)Ordered By: Keven Etienne on 07-11-2024 Immature granulocytes/100 WBC (Bld) 0.300 % 0.0-0.9 [facility] MCV (mean corpuscular volume ) determinationOrdered By: Keven Etienne on 07-11-2024 MCV (RBC) [Entitic vol] 88.8 fL 80-94 [facility] Mean corpuscular hemoglobin (MCH) determinationOrdered By: Keven Etienne on 07-11-2024 MCH (RBC) [Entitic mass] 29.8 pg 27.0-32.0 [facility] Monocyte percentageOrdered B y: Keven Etienne on 07-11-2024 Monocytes/100 WBC (Bld) 8.9 % 0-10 [facility] [place] Neutrophil percentageOrdered By: Edwarfrannycadenkeron Marcdollyclaudio on 07-11-2024 Neutrophils/100 WBC (Bld) 43.3 % Low 47-70 [facility] Platelet countOrdered By: Edwar remedios Monicodollyclaudio on 07-11-2024 Platelets (Bld) [#/Vol] 186 10*3/uL 150-450 [facility] Potassium measurement (mass/ volume)Ordered By: Keven Etienne on 07-11-2024 Potassium (Unsp spec) [Mass/Vol] 4.3 mmol/L 3.3-5.1 [facility] RBC Auto (Bld) [#/Vol]Ordere d By: Edwarfrannycadenkeron Etienne on 07-11-2024 RBC (Bld) [#/Vol] 4.00 10*6/uL Low 4.6-6.2 [facility] Serum creatinine measurement (mass/volume)Ordered By: Keven Etienne on 07-11-2024 Creatinine [Mass/Vol] 0.86 mg/dL 0.70-1.20 [facility] Serum glucose measurement (m ass/volume)Ordered By: Edwarfrannycadenkeron Etienne on 07-11-2024 Glucose [Mass/Vol] 91 mg/dL 70-99 [facility] Serum or plasma calcium ratna urement (mass/volume)Ordered By: Keven Etienne on 07-11-2024 Calcium [Mass/Vol] 8.8 mg/dL 7.6-11.0 [facility] Serum or plasma urea nitroge n measurement (mass/volume)Ordered By: Keven Etienne on 07-11-2024 Urea nitrogen [Mass/Vol] 19 mg/dL 4-19 [facility] Sodium levelOrdered By: Edwarfranny juan alberto Jaimie on 07-11-2024 Sodium [Moles/Vol] 139 mmol/L 133-145 [facility] White blood cell (WBC) count Ordered By: Keven Etienne on 07-11-2024 WBC (Bld) [#/Vol] 6.7 10*3/uL 4.4-11.0 [facility] Absolute lymphocyte countOrd ered By: Keven Etienne on 07-04-2024 Lymphocytes Auto (Unsp spec) [#/Vol] 2.53 10*3/uL 0.83-4.51 [facility] Anion gap in Serum or Plasma Ordered By: Keven Etienne on 07-04-2024 Anion gap [Moles/Vol] 10 mmol/L 5-15 [facility] Automated lymphocyte count a s percentage of total leukocytesOrdered By: Keven Etienne on 07-04-2024 Lymphocytes/100 WBC Auto (Unsp spec) 38.2 % 19-41 [facility] BUN/creatinine ratioOrdered By: Keven Etienne on 07-04-2024 Urea nitrogen/Creatinine [Mass ratio] 15.7 mg/mg 10-20 [facility] Basophil percentageOrdered B y: Keven Etienne on 07-04-2024 Basophils/100 WBC (Bld) 0.3 % 0-1 [facility] [place] Carbon dioxide, total [Moles /volume] in Central venous bloodOrdered By: Keven Etienne on 07-04-2024 CO2 [Moles/Vol] 25.9 mmol/L 21.0-32.0 [facility] Chloride assayOrdered By: Edwar Etienne on 07-04-2024 Chloride [Moles/Vol] 105 mmol/L 98-[address] [facility] Eosinophil percentageOrdered By: Keven Etienne on 07-04-2024 Eosinophils/100 WBC (Bld) 6.8 % High 0-5 [facility] Erythrocyte distribution wid th ratioOrdered By: remedios Etienne on 07-04-2024 Erythrocyte distribution width (RBC) [Ratio] 12.9 % 11.6-14.6 [facility] Erythrocyte distribution wid th standard deviationOrdered By: frannystoningtonkeron Etienne on 07-04-2024 Erythrocyte distribution width (RBC) [Ratio] 41.9 fl 35.1-43.9 [facility] Glomerular filtration rate ( GFR) estimation/1.73 sq m using serum, plasma, or whole bOrdered By: Keven Etienne on 07-04-2024 GFR/1.73 sq M.predicted among non-blacks MDRD (S/P/Bld) [Vol rate/Area] 86 mL/min/{1.73_m2} >60 [facility] Hematocrit Auto (Bld) [Volum e fraction]Ordered By: Ritacadenkeron Marcdollyclaudio on 07-04-2024 Hematocrit (Bld) [Volume fraction] 37.0 % Low 40-54 [facility] Hemoglobin measurementOrdere d By: Keven Monicodollyclaudio on 07-04-2024 Hemoglobin (Bld) [Mass/Vol] 12.2 g/dL Low 13.0-16.5 [facility] Immature granulocytes/100 WB C Auto (Bld)Ordered By: Keven Marcdollyclaudio on 07-04-2024 Immature granulocytes/100 WBC (Bld) 0.300 % 0.0-0.9 [facility] MCV (mean corpuscular volume ) determinationOrdered By: Keven Eitenne on 07-04-2024 MCV (RBC) [Entitic vol] 88.5 fL 80-94 [facility] Mean corpuscular hemoglobin (MCH) determinationOrdered By: frannycadenkeron Marcdollyclaudio on 07-04-2024 MCH (RBC) [Entitic mass] 29.2 pg 27.0-32.0 [facility] Monocyte percentageOrdered B y: Edwarremedios Marcdollyclaudio on 07-04-2024 Monocytes/100 WBC (Bld) 9.2 % 0-10 [facility] Neutrophil percentageOrdered By: Keven Marcdollyclaudio on 07-04-2024 Neutrophils/100 WBC (Bld) 45.2 % Low 47-70 [facility] Platelet countOrdered By: Edwar remedios Monicodollyclaudio on 07-04-2024 Platelets (Bld) [#/Vol] 187 10*3/uL 150-450 [facility] Potassium measurement (mass/ volume)Ordered By: Edwarremedios Marcdollyclaudio on 07-04-2024 Potassium (Unsp spec) [Mass/Vol] 4.4 mmol/L 3.3-5.1 [facility] RBC Auto (Bld) [#/Vol]Ordere d By: Keven Etienne on 07-04-2024 RBC (Bld) [#/Vol] 4.18 10*6/uL Low 4.6-6.2 [facility] Serum creatinine measurement (mass/volume)Ordered By: Keven Etienne on 07-04-2024 Creatinine [Mass/Vol] 0.87 mg/dL 0.70-1.20 [facility] Serum glucose measurement (m ass/volume)Ordered By: Keven Etienne on 07-04-2024 Glucose [Mass/Vol] 95 mg/dL 70-99 [facility] Serum or plasma calcium ratna urement (mass/volume)Ordered By: Keven Etienne on 07-04-2024 Calcium [Mass/Vol] 9.0 mg/dL 7.6-11.0 [facility] Serum or plasma urea nitroge n measurement (mass/volume)Ordered By: Keven Etienne on 07-04-2024 Urea nitrogen [Mass/Vol] 14 mg/dL 4-19 [facility] Sodium levelOrdered By: Rita juan alberto Jaimie on 07-04-2024 Sodium [Moles/Vol] 141 mmol/L 133-145 [facility] White blood cell (WBC) count Ordered By: Keven Etienne on 07-04-2024 WBC (Bld) [#/Vol] 6.6 10*3/uL 4.4-11.0 [facility] Absolute lymphocyte countOrd ered By: Keven Etienne on 06-26-2024 Lymphocytes Auto (Unsp spec) [#/Vol] 2.99 10*3/uL 0.83-4.51 [facility] Anion gap in Serum or Plasma Ordered By: Keven Etienne on 06-26-2024 Anion gap [Moles/Vol] 8 mmol/L 5-15 [facility] Automated lymphocyte count a s percentage of total leukocytesOrdered By: Keven Etienne on 06-26-2024 Lymphocytes/100 WBC Auto (Unsp spec) 45.0 % High 19-41 [facility] BUN/creatinine ratioOrdered By: Keven Etienne on 06-26-2024 Urea nitrogen/Creatinine [Mass ratio] 18.5 mg/mg 10-20 [facility] Basophil percentageOrdered B y: Keven Etienne on 06-26-2024 Basophils/100 WBC (Bld) 0.6 % 0-1 [facility] Carbon dioxide, total [Moles /volume] in Central venous bloodOrdered By: remedios Etienne on 06-26-2024 CO2 [Moles/Vol] 25.7 mmol/L 21.0-32.0 [facility] Chloride assayOrdered By: Edwar frannyjuan alberto Etienne on 06-26-2024 Chloride [Moles/Vol] 105 mmol/L 98-[address] [facility] Eosinophil percentageOrdered By: remedios Etienne on 06-26-2024 Eosinophils/100 WBC (Bld) 4.1 % 0-5 [facility] Erythrocyte distribution wid th ratioOrdered By: frannystoningtonkeron Etienne on 06-26-2024 Erythrocyte distribution width (RBC) [Ratio] 13.0 % 11.6-14.6 [facility] Erythrocyte distribution wid th standard deviationOrdered By: frannystoningtonkeron Etienne on 06-26-2024 Erythrocyte distribution width (RBC) [Ratio] 42.1 fl 35.1-43.9 [facility] Glomerular filtration rate ( GFR) estimation/1.73 sq m using serum, plasma, or whole bOrdered By: remedios Etienne on 06-26-2024 GFR/1.73 sq M.predicted among non-blacks MDRD (S/P/Bld) [Vol rate/Area] 85 mL/min/{1.73_m2} >60 [facility] Hematocrit Auto (Bld) [Volum e fraction]Ordered By: Keven Etienne on 06-26-2024 Hematocrit (Bld) [Volume fraction] 35.2 % Low 40-54 [facility] Hemoglobin measurementOrdere d By: Keven Etienne on 06-26-2024 Hemoglobin (Bld) [Mass/Vol] 11.7 g/dL Low 13.0-16.5 [facility] Immature granulocytes/100 WB C Auto (Bld)Ordered By: Keven Etienne on 06-26-2024 Immature granulocytes/100 WBC (Bld) 0.200 % 0.0-0.9 [facility] MCV (mean corpuscular volume ) determinationOrdered By: Keven Etienne on 06-26-2024 MCV (RBC) [Entitic vol] 88.4 fL 80-94 [facility] Mean corpuscular hemoglobin (MCH) determinationOrdered By: Edwarremedios Marcdollyclaudio on 06-26-2024 MCH (RBC) [Entitic mass] 29.4 pg 27.0-32.0 [facility] Monocyte percentageOrdered B y: Ritajuan alberto Etienne on 06-26-2024 Monocytes/100 WBC (Bld) 9.5 % 0-10 [facility] Neutrophil percentageOrdered By: Edwarremedios Marcdollyclaudio on 06-26-2024 Neutrophils/100 WBC (Bld) 40.6 % Low 47-70 [facility] Platelet countOrdered By: Edwar nitishkeron Etienne on 06-26-2024 Platelets (Bld) [#/Vol] 177 10*3/uL 150-450 [facility] Potassium measurement (mass/ volume)Ordered By: Keven Etienne on 06-26-2024 Potassium (Unsp spec) [Mass/Vol] 4.4 mmol/L 3.3-5.1 [facility] RBC Auto (Bld) [#/Vol]Ordere d By: Keven Etienne on 06-26-2024 RBC (Bld) [#/Vol] 3.98 10*6/uL Low 4.6-6.2 [facility] Serum creatinine measurement (mass/volume)Ordered By: Keven Etienne on 06-26-2024 Creatinine [Mass/Vol] 0.91 mg/dL 0.70-1.20 [facility] Serum glucose measurement (m ass/volume)Ordered By: Keven Etienne on 06-26-2024 Glucose [Mass/Vol] 90 mg/dL 70-99 [facility] Serum or plasma calcium ratna urement (mass/volume)Ordered By: Keven Etienne on 06-26-2024 Calcium [Mass/Vol] 8.9 mg/dL 7.6-11.0 [facility] Serum or plasma urea nitroge n measurement (mass/volume)Ordered By: Edwarfrannyjuan alberto Monicodollyclaudio on 06-26-2024 Urea nitrogen [Mass/Vol] 17 mg/dL 4-19 [facility] Sodium levelOrdered By: Rita avendano Monicodollyclaudio on 06-26-2024 Sodium [Moles/Vol] 139 mmol/L 133-145 [facility] White blood cell (WBC) count Ordered By: Edwarfrannyjuan alberto Monicomarisela on 06-26-2024 WBC (Bld) [#/Vol] 6.7 10*3/uL 4.4-11.0 [facility] Absolute lymphocyte countOrd ered By: Edwarfrannyjuan alberto Monicomarisela on 06-19-2024 Lymphocytes Auto (Unsp spec) [#/Vol] 2.85 10*3/uL 0.83-4.51 [facility] Anion gap in Serum or Plasma Ordered By: Ritacadenkeron Marcdollyclaudio on 06-19-2024 Anion gap [Moles/Vol] 10 mmol/L 5-15 [facility] Automated lymphocyte count a s percentage of total leukocytesOrdered By: Edwarfrannyjuan alberto Monicodollyclaudio on 06-19-2024 Lymphocytes/100 WBC Auto (Unsp spec) 41.2 % High 19-41 [facility] BUN/creatinine ratioOrdered By: Edwarfrannyjuan alberto Monicodollyclaudio on 06-19-2024 Urea nitrogen/Creatinine [Mass ratio] 24.2 mg/mg High 10-20 [facility] Basophil percentageOrdered B y: Keven Monicomarisela on 06-19-2024 Basophils/100 WBC (Bld) 0.6 % 0-1 [facility] [place] Carbon dioxide, total [Moles /volume] in Central venous bloodOrdered By: Keven Monicodollyclaudio on 06-19-2024 CO2 [Moles/Vol] 25.5 mmol/L 21.0-32.0 [facility] Chloride assayOrdered By: Edwar frannyjuan alberto Marcdollyclaudio on 06-19-2024 Chloride [Moles/Vol] 105 mmol/L 98-[address] [facility] Eosinophil percentageOrdered By: Keven Monicodollyclaudio on 06-19-2024 Eosinophils/100 WBC (Bld) 4.9 % 0-5 [facility] Erythrocyte distribution wid th ratioOrdered By: Keven Etienne on 06-19-2024 Erythrocyte distribution width (RBC) [Ratio] 13.0 % 11.6-14.6 [facility] Erythrocyte distribution wid th standard deviationOrdered By: Keven Etienne on 06-19-2024 Erythrocyte distribution width (RBC) [Ratio] 42.8 fl 35.1-43.9 [facility] Glomerular filtration rate ( GFR) estimation/1.73 sq m using serum, plasma, or whole bOrdered By: Keven Etienne on 06-19-2024 GFR/1.73 sq M.predicted among non-blacks MDRD (S/P/Bld) [Vol rate/Area] 86 mL/min/{1.73_m2} >60 [facility] Hematocrit Auto (Bld) [Volum e fraction]Ordered By: Keven Etienne on 06-19-2024 Hematocrit (Bld) [Volume fraction] 36.0 % Low 40-54 [facility] Hemoglobin measurementOrdere d By: Keven Etienne on 06-19-2024 Hemoglobin (Bld) [Mass/Vol] 11.8 g/dL Low 13.0-16.5 [facility] Immature granulocytes/100 WB C Auto (Bld)Ordered By: Keven Etienne on 06-19-2024 Immature granulocytes/100 WBC (Bld) 0.300 % 0.0-0.9 [facility] MCV (mean corpuscular volume ) determinationOrdered By: Keven Etienne on 06-19-2024 MCV (RBC) [Entitic vol] 90.0 fL 80-94 [facility] Mean corpuscular hemoglobin (MCH) determinationOrdered By: remedios Etienne on 06-19-2024 MCH (RBC) [Entitic mass] 29.5 pg 27.0-32.0 [facility] Monocyte percentageOrdered B y: Keven Etienne on 06-19-2024 Monocytes/100 WBC (Bld) 9.5 % 0-10 [facility] Neutrophil percentageOrdered By: Keven Etienne on 06-19-2024 Neutrophils/100 WBC (Bld) 43.5 % Low 47-70 [facility] Platelet countOrdered By: Edwar Etienne on 06-19-2024 Platelets (Bld) [#/Vol] 185 10*3/uL 150-450 [facility] Potassium measurement (mass/ volume)Ordered By: Keven Monicomarisela on 06-19-2024 Potassium (Unsp spec) [Mass/Vol] 4.4 mmol/L 3.3-5.1 [facility] RBC Auto (Bld) [#/Vol]Ordere d By: Keven Etienne on 06-19-2024 RBC (Bld) [#/Vol] 4.00 10*6/uL Low 4.6-6.2 [facility] Serum creatinine measurement (mass/volume)Ordered By: Keven Etienne on 06-19-2024 Creatinine [Mass/Vol] 0.89 mg/dL 0.70-1.20 [facility] Serum glucose measurement (m ass/volume)Ordered By: Keven Monicomarisela on 06-19-2024 Glucose [Mass/Vol] 91 mg/dL 70-99 [facility] Serum or plasma calcium ratna urement (mass/volume)Ordered By: Keven Etienne on 06-19-2024 Calcium [Mass/Vol] 9.0 mg/dL 7.6-11.0 [facility] Serum or plasma urea nitroge n measurement (mass/volume)Ordered By: Keven Monicomarisela on 06-19-2024 Urea nitrogen [Mass/Vol] 22 mg/dL High 4-19 [facility] Sodium levelOrdered By: Rita Etienne on 06-19-2024 Sodium [Moles/Vol] 141 mmol/L 133-145 [facility] White blood cell (WBC) count Ordered By: Keven Monicomarisela on 06-19-2024 WBC (Bld) [#/Vol] 6.9 10*3/uL 4.4-11.0 [facility] Absolute lymphocyte countOrd ered By: Keven Monicomarisela on 06-12-2024 Lymphocytes Auto (Unsp spec) [#/Vol] 2.89 10*3/uL 0.83-4.51 [facility] Anion gap in Serum or Plasma Ordered By: Keven Etienne on 06-12-2024 Anion gap [Moles/Vol] 10 mmol/L 5-15 [facility] Automated lymphocyte count a s percentage of total leukocytesOrdered By: Keven Etienne on 06-12-2024 Lymphocytes/100 WBC Auto (Unsp spec) 41.1 % High 19-41 [facility] BUN/creatinine ratioOrdered By: frannystoningtonkeron Etienne on 06-12-2024 Urea nitrogen/Creatinine [Mass ratio] 20.6 mg/mg High 10-20 [facility] Basophil percentageOrdered B y: Keven Etienne on 06-12-2024 Basophils/100 WBC (Bld) 0.3 % 0-1 [facility] [place] Carbon dioxide, total [Moles /volume] in Central venous bloodOrdered By: Keven Etienne on 06-12-2024 CO2 [Moles/Vol] 24.3 mmol/L 21.0-32.0 [facility] Chloride assayOrdered By: remedios Etienne on 06-12-2024 Chloride [Moles/Vol] 105 mmol/L 98-[address] [facility] Eosinophil percentageOrdered By: frannystoningtonkeron Etienne on 06-12-2024 Eosinophils/100 WBC (Bld) 3.6 % 0-5 [facility] Erythrocyte distribution wid th ratioOrdered By: Keven Etienne on 06-12-2024 Erythrocyte distribution width (RBC) [Ratio] 12.9 % 11.6-14.6 [facility] Erythrocyte distribution wid th standard deviationOrdered By: [facility] Erythrocyte distribution width (RBC) [Ratio] 41.6 fl 35.1-43.9 [facility] Glomerular filtration rate ( GFR) estimation/1.73 sq m using serum, plasma, or whole bOrdered By: Keven Etienne on 06-12-2024 GFR/1.73 sq M.predicted among non-blacks MDRD (S/P/Bld) [Vol rate/Area] 87 mL/min/{1.73_m2} >60 [facility] Hematocrit Auto (Bld) [Volum e fraction]Ordered By: Keven Etienne on 06-12-2024 Hematocrit (Bld) [Volume fraction] 34.2 % Low 40-54 [facility] Hemoglobin measurementOrdere d By: Keven Etienne on 06-12-2024 Hemoglobin (Bld) [Mass/Vol] 11.4 g/dL Low 13.0-16.5 [facility] Immature granulocytes/100 WB C Auto (Bld)Ordered By: remedios Etienne on 06-12-2024 Immature granulocytes/100 WBC (Bld) 0.100 % 0.0-0.9 [facility] MCV (mean corpuscular volume ) determinationOrdered By: Keven Etienne on 06-12-2024 MCV (RBC) [Entitic vol] 88.4 fL 80-94 [facility] Mean corpuscular hemoglobin (MCH) determinationOrdered By: remedios Etienne on 06-12-2024 MCH (RBC) [Entitic mass] 29.5 pg 27.0-32.0 [facility] Monocyte percentageOrdered B y: frannystoningtonkeron Etienne on 06-12-2024 Monocytes/100 WBC (Bld) 9.4 % 0-10 [facility] Neutrophil percentageOrdered By: frannystoningtonkeron Etienne on 06-12-2024 Neutrophils/100 WBC (Bld) 45.5 % Low 47-70 [facility] Platelet countOrdered By: Edwar frannyjuan alberto Etienne on 06-12-2024 Platelets (Bld) [#/Vol] 188 10*3/uL 150-450 [facility] Potassium measurement (mass/ volume)Ordered By: remedios Etienne on 06-12-2024 Potassium (Unsp spec) [Mass/Vol] 4.2 mmol/L 3.3-5.1 [facility] RBC Auto (Bld) [#/Vol]Ordere d By: Keven Etienne on 06-12-2024 RBC (Bld) [#/Vol] 3.87 10*6/uL Low 4.6-6.2 [facility] Serum creatinine measurement (mass/volume)Ordered By: Keven Etienne on 06-12-2024 Creatinine [Mass/Vol] 0.85 mg/dL 0.70-1.20 [facility] Serum glucose measurement (m ass/volume)Ordered By: Keven Etienne on 06-12-2024 Glucose [Mass/Vol] 94 mg/dL 70-99 [facility] Serum or plasma calcium ratna urement (mass/volume)Ordered By: Keven Etienne on 06-12-2024 Calcium [Mass/Vol] 8.9 mg/dL 7.6-11.0 [facility] Serum or plasma urea nitroge n measurement (mass/volume)Ordered By: Keven Etienne on 06-12-2024 Urea nitrogen [Mass/Vol] 18 mg/dL 4-19 [facility] Sodium levelOrdered By: Rita Etienne on 06-12-2024 Sodium [Moles/Vol] 140 mmol/L 133-145 [facility] White blood cell (WBC) count Ordered By: Keven Etienne on 06-12-2024 WBC (Bld) [#/Vol] 7.0 10*3/uL 4.4-11.0 [facility] Absolute lymphocyte countOrd ered By: Keven Etienne on 06-05-2024 Lymphocytes Auto (Unsp spec) [#/Vol] 2.57 10*3/uL 0.83-4.51 [facility] Anion gap in Serum or Plasma Ordered By: Keven Etienne on 06-05-2024 Anion gap [Moles/Vol] 10 mmol/L 5-15 [facility] Automated lymphocyte count a s percentage of total leukocytesOrdered By: Keven Etienne on 06-05-2024 Lymphocytes/100 WBC Auto (Unsp spec) 40.3 % - [facility] BUN/creatinine ratioOrdered By: Keven Etienne on 06-05-2024 Urea nitrogen/Creatinine [Mass ratio] 17.2 mg/mg 10-20 [facility] Basophil percentageOrdered B y: Keven Etienne on 06-05-2024 Basophils/100 WBC (Bld) 0.5 % 0-1 [facility] Carbon dioxide, total [Moles /volume] in Central venous bloodOrdered By: Keven Etienne on 06-05-2024 CO2 [Moles/Vol] 25.7 mmol/L 21.0-32.0 [facility] Chloride assayOrdered By: Edwar Etienne on 06-05-2024 Chloride [Moles/Vol] 106 mmol/L 98-[address] [facility] Eosinophil percentageOrdered By: Keven Etienne on 06-05-2024 Eosinophils/100 WBC (Bld) 5.2 % High 0-5 [facility] Erythrocyte distribution wid th ratioOrdered By: Keven Etienne on 06-05-2024 Erythrocyte distribution width (RBC) [Ratio] 12.5 % 11.6-14.6 [facility] Erythrocyte distribution wid th standard deviationOrdered By: Keven Etienne on 06-05-2024 Erythrocyte distribution width (RBC) [Ratio] 40.6 fl 35.1-43.9 [facility] Glomerular filtration rate ( GFR) estimation/1.73 sq m using serum, plasma, or whole bOrdered By: Keven Etienne on 06-05-2024 GFR/1.73 sq M.predicted among non-blacks MDRD (S/P/Bld) [Vol rate/Area] 87 mL/min/{1.73_m2} >60 [facility] Hematocrit Auto (Bld) [Volum e fraction]Ordered By: Keven Etienne 06-05-2024 Hematocrit (Bld) [Volume fraction] 35.3 % Low 40-54 [facility] Hemoglobin measurementOrdere d By: Keven Etienne 06-05-2024 Hemoglobin (Bld) [Mass/Vol] 11.9 g/dL Low 13.0-16.5 [facility] Immature granulocytes/100 WB C Auto (Bld)Ordered By: Keven Etienne on 06-05-2024 Immature granulocytes/100 WBC (Bld) 0.300 % 0.0-0.9 [facility] MCV (mean corpuscular volume ) determinationOrdered By: Keven Etienne on 06-05-2024 MCV (RBC) [Entitic vol] 88.7 fL 80-94 [facility] Mean corpuscular hemoglobin (MCH) determinationOrdered By: Edwarfrannycadenkeron Marcdollyclaudio on 06-05-2024 MCH (RBC) [Entitic mass] 29.9 pg 27.0-32.0 [facility] Monocyte percentageOrdered B y: Bisikeron Marcdollyclaudio on 06-05-2024 Monocytes/100 WBC (Bld) 10.8 % High 0-10 [facility] Neutrophil percentageOrdered By: Bisikeron Marcdollyclaudio on 06-05-2024 Neutrophils/100 WBC (Bld) 42.9 % Low 47-70 [facility] Platelet countOrdered By: Edwar nitishkeron Marcdollyclaudio on 06-05-2024 Platelets (Bld) [#/Vol] 163 10*3/uL 150-450 [facility] Potassium measurement (mass/ volume)Ordered By: Keven Etienne on 06-05-2024 Potassium (Unsp spec) [Mass/Vol] 4.2 mmol/L 3.3-5.1 [facility] RBC Auto (Bld) [#/Vol]Ordere d By: Edwarfrannyjuan alberto Monicomarisela on 06-05-2024 RBC (Bld) [#/Vol] 3.98 10*6/uL Low 4.6-6.2 [facility] Serum creatinine measurement (mass/volume)Ordered By: Keven Etienne on 06-05-2024 Creatinine [Mass/Vol] 0.86 mg/dL 0.70-1.20 [facility] Serum glucose measurement (m ass/volume)Ordered By: Keven Etienne on 06-05-2024 Glucose [Mass/Vol] 95 mg/dL 70-99 [facility] Serum or plasma calcium ratna urement (mass/volume)Ordered By: Keven Etienne on 06-05-2024 Calcium [Mass/Vol] 9.0 mg/dL 7.6-11.0 [facility] Serum or plasma urea nitroge n measurement (mass/volume)Ordered By: Keven Etienne on 06-05-2024 Urea nitrogen [Mass/Vol] 15 mg/dL 4-19 [facility] Sodium levelOrdered By: Rita juan alberto Jaimie on 06-05-2024 Sodium [Moles/Vol] 142 mmol/L 133-145 [facility] White blood cell (WBC) count Ordered By: Keven Etienne on 06-05-2024 WBC (Bld) [#/Vol] 6.4 10*3/uL 4.4-11.0 [facility] Cerv Spine 2 or 3 Viewson Cerv Spine 2 or 3 Views Normal [facility] [place] Orthopedic Visit Reporton Orthopedic Visit Report Normal [facility] Absolute lymphocyte countOrd ered By: Keven Etienne on 05-29-2024 Lymphocytes Auto (Unsp spec) [#/Vol] 2.20 10*3/uL 0.83-4.51 [facility] Absolute neutrophil countOrd ered By: Keven Etienne on 05-29-2024 Neutrophils (Bld) [#/Vol] 3.3 10*3/uL 2.0-7.7 [facility] Anion gap in Serum or Plasma Ordered By: Keven Etienne on 05-29-2024 Anion gap [Moles/Vol] 10 mmol/L 5-15 [facility] Automated lymphocyte count a s percentage of total leukocytesOrdered By: Keven Etienne on 05-29-2024 Lymphocytes/100 WBC Auto (Unsp spec) 34.3 % 19-41 [facility] BUN/creatinine ratioOrdered By: Keven Etienne on 05-29-2024 Urea nitrogen/Creatinine [Mass ratio] 19.7 mg/mg 10-20 [facility] Basophil percentageOrdered B y: Keven Etienne on 05-29-2024 Basophils/100 WBC (Bld) 0.6 % 0-1 [facility] [place] Carbon dioxide, total [Moles /volume] in Central venous bloodOrdered By: Keven Etienne on 05-29-2024 CO2 [Moles/Vol] 25.2 mmol/L 21.0-32.0 [facility] Chloride assayOrdered By: Edwar Etienne on 05-29-2024 Chloride [Moles/Vol] 108 mmol/L 98-[address] [facility] Eosinophil percentageOrdered By: Keven Etienne on 05-29-2024 Eosinophils/100 WBC (Bld) 4.2 % 0-5 [facility] Erythrocyte distribution wid th (RBC) [Ratio]Ordered By: Keven Etienne on 05-29-2024 Erythrocyte distribution width (RBC) [Entitic vol] 41.1 fL 35.1-43.9 [facility] Erythrocyte distribution wid th ratioOrdered By: Keven Etienne on 05-29-2024 Erythrocyte distribution width (RBC) [Ratio] 12.6 % 11.6-14.6 [facility] Erythrocyte distribution wid th standard deviationOrdered By: Keven Etienne on 05-29-2024 Erythrocyte distribution width (RBC) [Ratio] 41.1 fl 35.1-43.9 [facility] GFR/1.73 sq M.predicted darrick g non-blacks MDRD (S/P/Bld) [Vol rate/Area]Ordered By: Keven Etienne on 05-29-2024 Estimated GFR (MDRD) Non-Af Amer 78 >60 [facility] Comment on above: mL/min/1.73m2 CKD-EP I Creatinine Equation (2020) Glomerular filtration rate ( GFR) estimation/1.73 sq m using serum, plasma, or whole bOrdered By: Keven Etienne on 05-29-2024 GFR/1.73 sq M.predicted among non-blacks MDRD (S/P/Bld) [Vol rate/Area] 78 mL/min/{1.73_m2} >60 [facility] Hematocrit Auto (Bld) [Volum e fraction]Ordered By: Keven Etienne on 05-29-2024 Hematocrit (Bld) [Volume fraction] 37.4 % Low 40-54 [facility] Hemoglobin measurementOrdere d By: Keven Etienne on 05-29-2024 Hemoglobin (Bld) [Mass/Vol] 12.3 g/dL Low 13.0-16.5 [facility] Immature granulocytes/100 WB C Auto (Bld)Ordered By: Keven Etienne on 05-29-2024 Immature granulocytes/100 WBC (Bld) 0.500 % 0.0-0.9 [facility] Comment on above: IG% - Immature Granu locytes (promyelocytes, myelocytes and metamyelocytes) > 1% indicates that a LEFT SHIFT is Present. Lymphocytes Auto (Unsp spec) [#/Vol]Ordered By: frannystoningtonkeron Marcclaudio on 05-29-2024 Lymphocytes (Bld) [#/Vol] 2.20 10*3/uL 0.83-4.51 [facility] Lymphocytes/100 WBC Auto (Un sp spec)Ordered By: frannystoningtonkeron Etienne on 05-29-2024 Lymphocytes/100 WBC (Bld) 34.3 % 19-41 [facility] MCV (mean corpuscular volume ) determinationOrdered By: remedios Etienne on 05-29-2024 MCV (RBC) [Entitic vol] 89.3 fL 80-94 [facility] Mean corpuscular hemoglobin (MCH) determinationOrdered By: frannystoningtonkeron Etienne on 05-29-2024 MCH (RBC) [Entitic mass] 29.4 pg 27.0-32.0 [facility] Mean corpuscular hemoglobin concentration (MCHC) determinationOrdered By: [facility] on 05-29-2024 MCHC (RBC) [Mass/Vol] 32.9 g/dL 32-36 [facility] Mean platelet volume determi nationOrdered By: frannystoningtonkeron Etienne on 05-29-2024 Platelet mean volume (Bld) [Entitic vol] 9.2 fL 6.2-12.0 [facility] Monocyte percentageOrdered B y: [facility] on 05-29-2024 Monocytes/100 WBC (Bld) 8.4 % 0-10 [facility] Neutrophil percentageOrdered By: [facility] Marcclaudio on 05-29-2024 Neutrophils/100 WBC (Bld) 52.0 % 47-70 [facility] Nucleated red blood cell per centageOrdered By: frannystoningtonkeron Etienne on 05-29-2024 Nucleated RBC/100 WBC (Bld) [Ratio] 0 % 0-5 [facility] Platelet countOrdered By: Edwar remedios Monicodollyclaudio on 05-29-2024 Platelets (Bld) [#/Vol] 185 10*3/uL 150-450 [facility] Potassium (Unsp spec) [Mass/ Vol]Ordered By: Keven Marcdollyclaudio on 05-29-2024 Potassium [Moles/Vol] 4.3 mmol/L 3.3-5.1 [facility] Potassium measurement (mass/ volume)Ordered By: Keven Etienne on 05-29-2024 Potassium (Unsp spec) [Mass/Vol] 4.3 mmol/L 3.3-5.1 [facility] RBC Auto (Bld) [#/Vol]Ordere d By: Bisikeron Etienne on 05-29-2024 RBC (Bld) [#/Vol] 4.19 10*6/uL Low 4.6-6.2 [facility] Serum creatinine measurement (mass/volume)Ordered By: Keven Etienne on 05-29-2024 Creatinine [Mass/Vol] 0.97 mg/dL 0.70-1.20 [facility] Serum glucose measurement (m ass/volume)Ordered By: Keven Etienne on 05-29-2024 Glucose [Mass/Vol] 95 mg/dL 70-99 [facility] Serum or plasma calcium ratna urement (mass/volume)Ordered By: Keven Marcdollyclaudio on 05-29-2024 Calcium [Mass/Vol] 8.8 mg/dL 7.6-11.0 [facility] Serum or plasma urea nitroge n measurement (mass/volume)Ordered By: Keven Etienne on 05-29-2024 Urea nitrogen [Mass/Vol] 19 mg/dL 4-19 [facility] Sodium levelOrdered By: Rita avendano Monicodollyclaudio on 05-29-2024 Sodium [Moles/Vol] 143 mmol/L 133-145 [facility] White blood cell (WBC) count Ordered By: Keven Marcdollyclaudio on 05-29-2024 WBC (Bld) [#/Vol] 6.4 10*3/uL 4.4-11.0 [facility] Abdomen Single Viewon 2024 Abdomen Single View Normal [facility] Gastroenterology Visit Repor ton 05-25-2024 Gastroenterology Visit Report Normal [facility] Absolute lymphocyte countOrd ered By: Keven Etienne on 05-22-2024 Lymphocytes Auto (Unsp spec) [#/Vol] 2.46 10*3/uL 0.83-4.51 [facility] Absolute neutrophil countOrd ered By: Keven Etienne on 05-22-2024 Neutrophils (Bld) [#/Vol] 4.3 10*3/uL 2.0-7.7 [facility] Anion gap in Serum or Plasma Ordered By: Keven Etienne on 05-22-2024 Anion gap [Moles/Vol] 10 mmol/L 5-15 [facility] Automated lymphocyte count a s percentage of total leukocytesOrdered By: Keven Etienne on 05-22-2024 Lymphocytes/100 WBC Auto (Unsp spec) 32.5 % 19-41 [facility] BUN/creatinine ratioOrdered By: Keven Etienne on 05-22-2024 Urea nitrogen/Creatinine [Mass ratio] 24.1 mg/mg High 10-20 [facility] Basophil percentageOrdered B y: Keven Etienne on 05-22-2024 Basophils/100 WBC (Bld) 0.5 % 0-1 [facility] Bilirubin, totalOrdered By: Keven Etienne on 05-22-2024 Bilirubin [Mass/Vol] 0.44 mg/dL 0.00-1.[address] [facility] Carbon dioxide, total [Moles /volume] in Central venous bloodOrdered By: Keven Etienne on 05-22-2024 CO2 [Moles/Vol] 23.9 mmol/L 21.0-32.0 [facility] Chloride assayOrdered By: Edwar Etienne on 05-22-2024 Chloride [Moles/Vol] 104 mmol/L 98-[address] [facility] Eosinophil percentageOrdered By: Keven Etienne on 05-22-2024 Eosinophils/100 WBC (Bld) 2.5 % 0-5 [facility] Erythrocyte distribution wid th (RBC) [Ratio]Ordered By: Keven Etienne on 05-22-2024 Erythrocyte distribution width (RBC) [Entitic vol] 41.4 fL 35.1-43.9 [facility] Erythrocyte distribution wid th ratioOrdered By: Keven Etienne on 05-22-2024 Erythrocyte distribution width (RBC) [Ratio] 12.7 % 11.6-14.6 [facility] Erythrocyte distribution wid th standard deviationOrdered By: frannystoningtonkeron Etienne on 05-22-2024 Erythrocyte distribution width (RBC) [Ratio] 41.4 fl 35.1-43.9 [facility] GFR/1.73 sq M.predicted darrick g non-blacks MDRD (S/P/Bld) [Vol rate/Area]Ordered By: Keven Etienne on 05-22-2024 Estimated GFR (MDRD) Non-Af Amer 73 >60 [facility] Comment on above: mL/min/1.73m2 CKD-EP I Creatinine Equation (2020) Glomerular filtration rate ( GFR) estimation/1.73 sq m using serum, plasma, or whole bOrdered By: Keven Etienne on 05-22-2024 GFR/1.73 sq M.predicted among non-blacks MDRD (S/P/Bld) [Vol rate/Area] 73 mL/min/{1.73_m2} >60 [facility] Hematocrit Auto (Bld) [Volum e fraction]Ordered By: Keven Etienne 05-22-2024 Hematocrit (Bld) [Volume fraction] 36.8 % Low 40-54 [facility] Hemoglobin measurementOrdere d By: Keven Eteinne 05-22-2024 Hemoglobin (Bld) [Mass/Vol] 12.1 g/dL Low 13.0-16.5 [facility] Immature granulocytes/100 WB C Auto (Bld)Ordered By: Keven Etienne on 05-22-2024 Immature granulocytes/100 WBC (Bld) 0.500 % 0.0-0.9 [facility] Comment on above: IG% - Immature Granu locytes (promyelocytes, myelocytes and metamyelocytes) > 1% indicates that a LEFT SHIFT is Present. Laboratory - Chemistry and C hemistry - challengeOrdered By: Keven Etienne on 05-22-2024 AST [Catalytic activity/Vol] 33 U/L <38 [facility] Comment on above: Hemolysis present, R esults could be affected. Lymphocytes Auto (Unsp spec) [#/Vol]Ordered By: Keven Etienne on 05-22-2024 Lymphocytes (Bld) [#/Vol] 2.46 10*3/uL 0.83-4.51 [facility] Lymphocytes/100 WBC Auto (Un sp spec)Ordered By: Keven Etienne on 05-22-2024 Lymphocytes/100 WBC (Bld) 32.5 % 19-41 [facility] MCV (mean corpuscular volume ) determinationOrdered By: Keven Etienne on 05-22-2024 MCV (RBC) [Entitic vol] 89.1 fL 80-94 [facility] Mean corpuscular hemoglobin (MCH) determinationOrdered By: Keven Etienne on 05-22-2024 MCH (RBC) [Entitic mass] 29.3 pg 27.0-32.0 [facility] Mean corpuscular hemoglobin concentration (MCHC) determinationOrdered By: Keven Etienne on 05-22-2024 MCHC (RBC) [Mass/Vol] 32.9 g/dL 32-36 [facility] Mean platelet volume determi nationOrdered By: Keven Etienne on 05-22-2024 Platelet mean volume (Bld) [Entitic vol] 8.7 fL 6.2-12.0 [facility] Monocyte percentageOrdered B y: Keven Etienne on 05-22-2024 Monocytes/100 WBC (Bld) 7.4 % 0-10 [facility] Neutrophil percentageOrdered By: remedios Etienne on 05-22-2024 Neutrophils/100 WBC (Bld) 56.6 % 47-70 [facility] No Panel InformationOrdered By: remedios Etienne on 05-22-2024 33 U/L <38 [facility] Nucleated red blood cell per centageOrdered By: Keven Etienne on 05-22-2024 Nucleated RBC/100 WBC (Bld) [Ratio] 0 % 0-5 [facility] Platelet countOrdered By: Edwar Etienne on 05-22-2024 Platelets (Bld) [#/Vol] 217 10*3/uL 150-450 [facility] Potassium (Unsp spec) [Mass/ Vol]Ordered By: Keven Etienne on 05-22-2024 Potassium [Moles/Vol] 4.3 mmol/L 3.3-5.1 [facility] Comment on above: Hemolysis present, R esults could be affected. Potassium measurement (mass/ volume)Ordered By: Keven Etienne on 05-22-2024 Potassium (Unsp spec) [Mass/Vol] 4.3 mmol/L 3.3-5.1 [facility] RBC Auto (Bld) [#/Vol]Ordere d By: Keven Etienne on 05-22-2024 RBC (Bld) [#/Vol] 4.13 10*6/uL Low 4.6-6.2 [facility] Serum creatinine measurement (mass/volume)Ordered By: Keven Etienne on 05-22-2024 Creatinine [Mass/Vol] 1.03 mg/dL 0.70-1.20 [facility] Serum globulin measurementOr dered By: Keven Etienne on 05-22-2024 Globulin (S) [Mass/Vol] 2.4 g/dL 2.2-4.2 [facility] Serum glucose measurement (m ass/volume)Ordered By: Keven Etienne on 05-22-2024 Glucose [Mass/Vol] 91 mg/dL 70-99 [facility] Serum or plasma alanine olmedo otransferase (ALT) measurementOrdered By: Keven Etienne on 05-22-2024 ALT [Catalytic activity/Vol] 44 U/L <47 [facility] Serum or plasma albumin ratna urement (mass/volume)Ordered By: Keven Etienne on 05-22-2024 Albumin [Mass/Vol] 3.3 g/dL Low 3.4-4.8 [facility] Serum or plasma albumin/glob ulin mass ratioOrdered By: Bisikeron Etienne on 05-22-2024 Albumin/Globulin [Mass ratio] 1.4 {ratio} 0.9-2.4 [facility] Serum or plasma alkaline garry sphatase measurementOrdered By: Edwarfrannycadenkeron Marcdollyclaudio on 05-22-2024 ALP [Catalytic activity/Vol] 139 U/L High 40-129 [facility] Serum or plasma calcium ratna urement (mass/volume)Ordered By: Keven Etienne on 05-22-2024 Calcium [Mass/Vol] 8.8 mg/dL 7.6-11.0 [facility] Serum or plasma urea nitroge n measurement (mass/volume)Ordered By: Keven Etienne on 05-22-2024 Urea nitrogen [Mass/Vol] 25 mg/dL High 4-19 [facility] Sodium levelOrdered By: Rita juan alberto Monicodollyclaudio on 05-22-2024 Sodium [Moles/Vol] 139 mmol/L 133-145 [facility] Total proteinOrdered By: Roby lo Monicodollyclaudio on 05-22-2024 Protein [Mass/Vol] 5.8 g/dL Low 5.9-8.4 [facility] White blood cell (WBC) count Ordered By: Ritacadenkeron Etienne on 05-22-2024 WBC (Bld) [#/Vol] 7.6 10*3/uL 4.4-11.0 [facility] Urine Cultureon 05-12-2024 URC Normal [facility] Comment on above: Performed By: #### L 400.0001, M100.2200 ####[facility] [address] [place], [address] Anion gap in Serum or Plasma Ordered By: Corazon Wright on 05-11-2024 Anion gap [Moles/Vol] 10 mmol/L 5-15 [facility] BUN/creatinine ratioOrdered By: Corazon Wright on 05-11-2024 Urea nitrogen/Creatinine [Mass ratio] 35.5 mg/mg High 10-20 [facility] Basic Metabolic Profile (BMP )on 05-11-2024 BUN/CRE 35.5 RATIO High 10-20 [facility] Comment on above: Performed By: #### L 500.2500, L100.0500 ####[facility] [address] [place], [address] Calcium [Mass/Vol] 8.6 mg/dL Normal 7.6-11.0 [facility] Comment on above: Performed By: #### L 500.2500, L100.0500 ####[facility] [address] [place], [address] Chloride [Moles/Vol] 104 mmol/L Normal 98-[address] [facility] Comment on above: Performed By: #### L 500.2500, L100.0500 ####[facility] [address] [place], [address] CO2 [Moles/Vol] 23.4 mmol/L Normal 21.0-32.0 [facility] Comment on above: Performed By: #### L 500.2500, L100.0500 ####[facility] [address] [place], [address] Creatinine [Mass/Vol] 0.96 mg/dL Normal 0.70-1.20 [facility] Comment on above: Performed By: #### L 500.2500, L100.0500 ####[facility] [address] [place], [address] ECRCL 57.40 ml/min Normal 50-250 [facility] Comment on above: Performed By: #### L 500.2500, L100.0500 ####[facility] [address] [place], [address] GAP 10 Normal 5-15 [facility] Comment on above: Performed By: #### L 500.2500, L100.0500 ####[facility] [address] [place], [address] GFR/1.73 sq M.predicted among non-blacks MDRD (S/P/Bld) [Vol rate/Area] 79 mL/min/{1.73_m2} Normal >60 [facility] Comment on above: Result Comment: mL/m in/1.73m2 CKD-EPI Creatinine Equation (2020) Performed By: #### L 500.2500, L100.0500 ####[facility] [address] [place], [address] Glucose [Mass/Vol] 116 mg/dL High 70-99 [facility] Comment on above: Performed By: #### L 500.2500, L100.0500 ####[facility] [address] [place], [address] Potassium [Moles/Vol] 4.5 mmol/L Normal 3.3-5.1 [facility] Comment on above: Performed By: #### L 500.2500, L100.0500 ####[facility] [address] [place], [address] Sodium [Moles/Vol] 137 mmol/L Normal 133-145 [facility] Comment on above: Performed By: #### L 500.2500, L100.0500 ####[facility] [address] [place], [address] Urea nitrogen [Mass/Vol] 34 mg/dL High 4-19 [facility] Comment on above: Performed By: #### L 500.2500, L100.0500 ####[facility] [address] [place], [address] CBC-Complete Blood Cnt No Di ffon 05-11-2024 Erythrocyte distribution width (RBC) [Ratio] 12.8 % Normal 11.6-14.6 [facility] Comment on above: Performed By: #### L 500.2500, L100.0500 ####[facility] [address] [place], [address] Hematocrit (Bld) [Volume fraction] 36.7 % Low 40-54 [facility] Comment on above: Performed By: #### L 500.2500, L100.0500 ####[facility] [address] [place], [address] Hemoglobin (Bld) [Mass/Vol] 12.3 g/dL Low 13.0-16.5 [facility] Comment on above: Performed By: #### L 500.2500, L100.0500 ####[facility] [address] [place], [address] MCH (RBC) [Entitic mass] 29.9 pg Normal 27.0-32.0 [facility] Comment on above: Performed By: #### L 500.2500, L100.0500 ####[facility] [address] [place], [address] MCHC (RBC) [Mass/Vol] 33.5 g/dL Normal 32-36 [facility] Comment on above: Performed By: #### L 500.2500, L100.0500 ####[facility] [address] [place], [address] MCV (RBC) [Entitic vol] 89.1 fL Normal 80-94 [facility] Comment on above: Performed By: #### L 500.2500, L100.0500 ####[facility] [address] [place], [address] Platelet mean volume (Bld) [Entitic vol] 8.8 fL Normal 6.2-12.0 [facility] Comment on above: Performed By: #### L 500.2500, L100.0500 ####[facility] [address] [place], [address] Platelets (Bld) [#/Vol] 232 10*3/uL Normal 150-450 [facility] Comment on above: Performed By: #### L 500.2500, L100.0500 ####[facility] [address] [place], [address] RBC (Bld) [#/Vol] 4.12 10*6/uL Low 4.6-6.2 [facility] Comment on above: Performed By: #### L 500.2500, L100.0500 ####[facility] [address] [place], [address] RDW SD 41.8 fl Normal 35.1-43.9 [facility] Comment on above: Performed By: #### L 500.2500, L100.0500 ####[facility] [address] [place], [address] WBC (Bld) [#/Vol] 9.9 10*3/uL Normal 4.4-11.0 [facility] Comment on above: Performed By: #### L 500.2500, L100.0500 ####[facility] [address] [place], [address] Carbon dioxide, total [Moles /volume] in Central venous bloodOrdered By: Corazon Wright on 05-11-2024 CO2 [Moles/Vol] 23.4 mmol/L 21.0-32.0 [facility] Chloride assayOrdered By: Phil Wright on 05-11-2024 Chloride [Moles/Vol] 104 mmol/L 98-[address] [facility] Erythrocyte distribution wid th (RBC) [Ratio]Ordered By: Corazon Wright on 05-11-2024 Erythrocyte distribution width (RBC) [Entitic vol] 41.8 fL 35.1-43.9 [facility] Erythrocyte distribution wid th ratioOrdered By: Corazon Wright on 05-11-2024 Erythrocyte distribution width (RBC) [Ratio] 12.8 % 11.6-14.6 [facility] Erythrocyte distribution wid th standard deviationOrdered By: Corazon Wright on 05-11-2024 Erythrocyte distribution width (RBC) [Ratio] 41.8 fl 35.1-43.9 [facility] Estimation of creatinine yahir aranceOrdered By: Croazon Wright on 05-11-2024 Estimated Creatinine Clearance Calc 57.40 ml/min 50-250 [facility] GFR/1.73 sq M.predicted darrick g non-blacks MDRD (S/P/Bld) [Vol rate/Area]Ordered By: Corazon Wright on 05-11-2024 Estimated GFR (MDRD) Non-Af Amer 79 >60 [facility] Comment on above: mL/min/1.73m2 CKD-EP I Creatinine Equation (2020) Glomerular filtration rate ( GFR) estimation/1.73 sq m using serum, plasma, or whole bOrdered By: Corazon Wright on 05-11-2024 GFR/1.73 sq M.predicted among non-blacks MDRD (S/P/Bld) [Vol rate/Area] 79 mL/min/{1.73_m2} >60 [facility] Hematocrit Auto (Bld) [Volum e fraction]Ordered By: Corazon Wright on 05-11-2024 Hematocrit (Bld) [Volume fraction] 36.7 % Low 40-54 [facility] Hemoglobin measurementOrdere d By: Corazon Wright on 05-11-2024 Hemoglobin (Bld) [Mass/Vol] 12.3 g/dL Low 13.0-16.5 [facility] MCV (mean corpuscular volume ) determinationOrdered By: Corazon Wright on 05-11-2024 MCV (RBC) [Entitic vol] 89.1 fL 80-94 [facility] Mean corpuscular hemoglobin (MCH) determinationOrdered By: Corazon Wright on 05-11-2024 MCH (RBC) [Entitic mass] 29.9 pg 27.0-32.0 [facility] Mean corpuscular hemoglobin concentration (MCHC) determinationOrdered By: Corazon Wright on 05-11-2024 MCHC (RBC) [Mass/Vol] 33.5 g/dL 32-36 [facility] Mean platelet volume determi nationOrdered By: Corazon Wright on 05-11-2024 Platelet mean volume (Bld) [Entitic vol] 8.8 fL 6.2-12.0 [facility] Platelet countOrdered By: Phil Wright on 05-11-2024 Platelets (Bld) [#/Vol] 232 10*3/uL 150-450 [facility] Potassium (Unsp spec) [Mass/ Vol]Ordered By: Corazon Kyle on 05-11-2024 Potassium [Moles/Vol] 4.5 mmol/L 3.3-5.1 [facility] Potassium measurement (mass/ volume)Ordered By: Corazon Wright on 05-11-2024 Potassium (Unsp spec) [Mass/Vol] 4.5 mmol/L 3.3-5.1 [facility] RBC Auto (Bld) [#/Vol]Ordere d By: Corazon Wright on 05-11-2024 RBC (Bld) [#/Vol] 4.12 10*6/uL Low 4.6-6.2 [facility] Serum creatinine measurement (mass/volume)Ordered By: Corazon Wright on 05-11-2024 Creatinine [Mass/Vol] 0.96 mg/dL 0.70-1.20 [facility] Serum glucose measurement (m ass/volume)Ordered By: Corazon Wright on 05-11-2024 Glucose [Mass/Vol] 116 mg/dL High 70-99 [facility] Serum or plasma calcium ratna urement (mass/volume)Ordered By: Corazon Wright on 05-11-2024 Calcium [Mass/Vol] 8.6 mg/dL 7.6-11.0 [facility] Serum or plasma urea nitroge n measurement (mass/volume)Ordered By: Corazon Wright on 05-11-2024 Urea nitrogen [Mass/Vol] 34 mg/dL High 4-19 [facility] Sodium levelOrdered By: Corazon Wright on 05-11-2024 Sodium [Moles/Vol] 137 mmol/L 133-145 [facility] White blood cell (WBC) count Ordered By: Corazon Wright on 05-11-2024 WBC (Bld) [#/Vol] 9.9 10*3/uL 4.4-11.0 [facility] Bilirubin Test strip Ql (U)O rdered By: Mariano Chan on 05-10-2024 Bilirubin Ql (U) Negative Negative [facility] Cerv Spine 2 or 3 Viewson Cerv Spine 2 or 3 Views Normal [facility] Epithelial cells.squamous LM Ql (Urine sed)Ordered By: Mariano Chan on 05-10-2024 Epithelial cells.squamous LM.HPF (Urine sed) [#/Area] 0 /[HPF] 0-5 [facility] Glucose Ql (U)Ordered By: aFbian Chan on 05-10-2024 Urine Glucose (UA) Normal mg/dl Normal [facility] Ketones Test strip Ql (U)Ord ered By: Mariano Chan on 05-10-2024 Ketones Ql (U) Negative Negative [facility] Microscopic analysis of urin e for red blood cells (RBC)Ordered By: Mariano Chan on 05-10-2024 Urine RBC 10-25 SEEN /hpf 0-5 [facility] Mucus LM Ql (Urine sed)Order ed By: Mariano Chan on 05-10-2024 Mucus Ql (Urine sed) 0 SEEN /hpf [facility] Nitrite Test strip Ql (U)Ord ered By: Mariano Chan on 05-10-2024 Nitrite Ql (U) Positive High Negative [facility] Protein Test strip Ql (U)Ord ered By: Mariano Chan on 05-10-2024 Protein Ql (U) 500 mg/dl High Negative [facility] Squamous epithelial cells de tection in urine sediment by light microscopyOrdered By: Mariano Chan on 05-10-2024 Epithelial cells.squamous LM Ql (Urine sed) 0 SEEN /hpf 0- [facility] Urinalysis, Completeon 05-10 BACTERIA 2+ /hpf Normal None Seen [facility] Comment on above: Order Comment: YOSVANY TER SPECIMEN Performed By: #### L 400.0001, ####[facility] [address] [place], [address] RBC 10-25 SEEN Normal 0-5 [facility] Comment on above: Order Comment: YOSVANY TER SPECIMEN Performed By: #### L 400.0001, ####[facility] [address] [place], [address] WBC 25-50 SEEN Normal 0-5 [facility] Comment on above: Order Comment: YOSVANY TER SPECIMEN Performed By: #### L 400.0001, M100.0 ####[facility] [address] [place], [address] EPI,SQUAMOUS 0 SEEN Normal 0-5 [facility] Comment on above: Order Comment: YOSVANY TER SPECIMEN Performed By: #### L 400.0001, M100.2200 ####[facility] [address] [place], [address] Mucus Ql (Urine sed) 0 SEEN Normal [facility] Comment on above: Order Comment: YOSVANY TER SPECIMEN Performed By: #### L 400.0001, M100.0 ####[facility] [address] [place], [address] Urine blood detectionOrdered By: Mariano Chan on 05-10-2024 Urine Occult Blood 250 /ul High Negative [facility] Urine clarityOrdered By: Mariano Chan on 05-10-2024 Clarity (U) Sl. Cloudy Clear [facility] Urine color determinationOrd ered By: Mariano Chan on 05-10-2024 Color (U) Yellow Yellow [facility] Urine cultureOrdered By: Mariano Chan on 05-10-2024 Bacteria identified Cx Nom (U) Enterobacter cloacae complex Abnormal [facility] Urine glucose detectionOrder ed By: Mariano Chan on 05-10-2024 Glucose Ql (U) Normal mg/dl Normal [facility] Urine leukocyte esterase det ection by dipstickOrdered By: Mariano Chan on 05-10-2024 Leukocyte esterase Test strip Ql (U) 500 /ul High Negative [facility] Urine pHOrdered By: Mariano Chan on 05-10-2024 pH (U) 6.0 [pH] 5.0 - 8.0 [facility] Urine sediment bacteria coun t by microscopy (number/high power field)Ordered By: Mariano Chan on 05-10-2024 Bacteria LM.HPF (Urine sed) [#/Area] 2 /[HPF] None Seen [facility] Urine specific gravity measu rementOrdered By: Mariano Chan on 05-10-2024 Specific gravity (U) [Rel density] 1.015 1.002-1.030 [facility] Urine urobilinogen measureme ntOrdered By: Mariano Chan on 05-10-2024 Urobilinogen Ql (U) Normal mg/dl Normal [facility] Urobilinogen Ql (U)Ordered B y: Mariano Chan on 05-10-2024 Urine Urobilinogen Normal mg/dl Normal [facility] White blood cell countOrdere d By: Mariano Chan on 05-10-2024 Urine WBC 25-50 SEEN /hpf 0-5 [facility] White blood cell count 25-50 SEEN /hpf 0-5 [facility] Modified Barium Swallow Stud yon 05-09-2024 Modified Barium Swallow Study Normal [facility] Basic Metabolic Profile (BMP )on 05-04-2024 BUN/CRE 18.0 RATIO Normal 10-20 [facility] Comment on above: Performed By: #### L 500.2500 ####[facility] [address] [facility] [address] Calcium [Mass/Vol] 8.2 mg/dL Normal 7.6-11.0 [facility] Comment on above: Performed By: #### L 500.2500 ####[facility] [address] [facility] [address] Chloride [Moles/Vol] 111 mmol/L High 98-[address] [facility] Comment on above: Performed By: #### L 500.2500 ####[facility] [address] [place], [address] CO2 [Moles/Vol] 21.7 mmol/L Normal 21.0-32.0 [facility] Comment on above: Performed By: #### L 500.2500 ####[facility] [address] [place], [address] Creatinine [Mass/Vol] 0.73 mg/dL Normal 0.70-1.20 [facility] Comment on above: Performed By: #### L 500.2500 ####[facility] [address] [place], [address] ECRCL 68.88 ml/min Normal 50-250 [facility] Comment on above: Performed By: #### L 500.2500 ####[facility] [address] [place], [address] GAP 8 Normal 5-15 [facility] Comment on above: Performed By: #### L 500.2500 ####[facility] [address] [place], [address] GFR/1.73 sq M.predicted among non-blacks MDRD (S/P/Bld) [Vol rate/Area] 91 mL/min/{1.73_m2} Normal >60 [facility] Comment on above: Result Comment: mL/m in/1.73m2 CKD-EPI Creatinine Equation (2020) Performed By: #### L 500.2500 ####[facility] [address] [place], [address] Glucose [Mass/Vol] 99 mg/dL Normal 70-99 [facility] Comment on above: Performed By: #### L 500.2500 ####[facility] [address] [place], [address] Potassium [Moles/Vol] 4.2 mmol/L Normal 3.3-5.1 [facility] Comment on above: Performed By: #### L 500.2500 ####[facility] [address] [place], [address] Sodium [Moles/Vol] 140 mmol/L Normal 133-145 [facility] Comment on above: Performed By: #### L 500.2500 ####[facility] [address] [place], [address] Urea nitrogen [Mass/Vol] 13 mg/dL Normal 4-19 [facility] Comment on above: Performed By: #### L 500.2500 ####[facility] [address] [place], [address] HH, Hemoglobin AND Hematocri ton 05-04-2024 Hematocrit (Bld) [Volume fraction] 37.1 % Low 40-54 [facility] Comment on above: Performed By: #### L 100.0600 ####[facility] [address] [place], [address] Hemoglobin (Bld) [Mass/Vol] 12.5 g/dL Low 13.0-16.5 [facility] Comment on above: Performed By: #### L 100.0600 ####[facility] [address] [place], [address] HH, Hemoglobin AND Hematocri ton 05-03-2024 Hematocrit (Bld) [Volume fraction] 38.8 % Low 40-54 [facility] Comment on above: Performed By: #### L 100.0600 ####[facility] [address] [place], [address] Hemoglobin (Bld) [Mass/Vol] 12.9 g/dL Low 13.0-16.5 [facility] Comment on above: Performed By: #### L 100.0600 ####[facility] [address] [place], [address] SP/SP.FEESon 05-02-2024 SP/SP.FEES Normal [facility] Basic Metabolic Profile (BMP )on 05-01-2024 BUN/CRE 21.7 RATIO High 10-20 [facility] Comment on above: Performed By: #### L 500.2500, L501.2300, L100.0500 ####[facility] [address] [place], [address] Calcium [Mass/Vol] 8.1 mg/dL Normal 7.6-11.0 [facility] Comment on above: Performed By: #### L 500.2500, L501.2300, L100.0500 ####[facility] [address] [place], [address] Chloride [Moles/Vol] 109 mmol/L High 98-[address] [facility] Comment on above: Performed By: #### L 500.2500, L501.2300, L100.0500 ####[facility] [address] [place], [address] CO2 [Moles/Vol] 23.7 mmol/L Normal 21.0-32.0 [facility] Comment on above: Performed By: #### L 500.2500, L501.2300, L100.0500 ####[facility] [address] [place], [address] Creatinine [Mass/Vol] 0.74 mg/dL Normal 0.70-1.20 [facility] Comment on above: Performed By: #### L 500.2500, L501.2300, L100.0500 ####[facility] [address] [place], [address] ECRCL 68.88 ml/min Normal 50-250 [facility] Comment on above: Performed By: #### L 500.2500, L501.2300, L100.0500 ####[facility] [address] [place], [address] GAP 8 Normal 5-15 [facility] Comment on above: Performed By: #### L 500.2500, L501.2300, L100.0500 ####[facility] [address] [place], [address] GFR/1.73 sq M.predicted among non-blacks MDRD (S/P/Bld) [Vol rate/Area] 91 mL/min/{1.73_m2} Normal >60 [facility] Comment on above: Result Comment: mL/m in/1.73m2 CKD-EPI Creatinine Equation (2020) Performed By: #### L 500.2500, L501.2300, L100.0500 ####[facility] [address] [place], [address] Glucose [Mass/Vol] 99 mg/dL Normal 70-99 [facility] Comment on above: Performed By: #### L 500.2500, L501.2300, L100.0500 ####[facility] [address] [place], [address] Potassium [Moles/Vol] 4.5 mmol/L Normal 3.3-5.1 [facility] Comment on above: Performed By: #### L 500.2500, L501.2300, L100.0500 ####[facility] [address] [place], [address] Sodium [Moles/Vol] 141 mmol/L Normal 133-145 [facility] Comment on above: Performed By: #### L 500.2500, L501.2300, L100.0500 ####[facility] [address] [place], [address] Urea nitrogen [Mass/Vol] 16 mg/dL Normal 4-19 [facility] Comment on above: Performed By: #### L 500.2500, L501.2300, L100.0500 ####[facility] [address] [place], [address] CBC-Complete Blood Cnt No Di ffon 05-01-2024 Erythrocyte distribution width (RBC) [Ratio] 12.8 % Normal 11.6-14.6 [facility] Comment on above: Performed By: #### L 500.2500, L501.2300, L100.0500 ####[facility] [address] [place], [address] Hematocrit (Bld) [Volume fraction] 35.2 % Low 40-54 [facility] Comment on above: Performed By: #### L 500.2500, L501.2300, L100.0500 ####[facility] [address] [place], [address] Hemoglobin (Bld) [Mass/Vol] 11.9 g/dL Low 13.0-16.5 [facility] Comment on above: Performed By: #### L 500.2500, L501.2300, L100.0500 ####[facility] [address] [place], [address] MCH (RBC) [Entitic mass] 30.2 pg Normal 27.0-32.0 [facility] Comment on above: Performed By: #### L 500.2500, L501.2300, L100.0500 ####[facility] [address] [place], [address] MCHC (RBC) [Mass/Vol] 33.8 g/dL Normal 32-36 [facility] Comment on above: Performed By: #### L 500.2500, L501.2300, L100.0500 ####[facility] [address] [place], [address] MCV (RBC) [Entitic vol] 89.3 fL Normal 80-94 [facility] Comment on above: Performed By: #### L 500.2500, L501.2300, L100.0500 ####[facility] [address] [place], [address] Platelet mean volume (Bld) [Entitic vol] 8.6 fL Normal 6.2-12.0 [facility] Comment on above: Performed By: #### L 500.2500, L501.2300, L100.0500 ####[facility] [address] [place], [address] Platelets (Bld) [#/Vol] 149 10*3/uL Low 150-450 [facility] Comment on above: Performed By: #### L 500.2500, L501.2300, L100.0500 ####[facility] [address] [place], [address] RBC (Bld) [#/Vol] 3.94 10*6/uL Low 4.6-6.2 [facility] Comment on above: Performed By: #### L 500.2500, L501.2300, L100.0500 ####[facility] [address] [place], [address] RDW SD 41.9 fl Normal 35.1-43.9 [facility] Comment on above: Performed By: #### L 500.2500, L501.2300, L100.0500 ####[facility] [address] [place], [address] WBC (Bld) [#/Vol] 8.4 10*3/uL Normal 4.4-11.0 [facility] Comment on above: Performed By: #### L 500.2500, L501.2300, L100.0500 ####[facility] [address] [place], [address] Electrocardiogram reportOrde red By: David Granados on 05-01-2024 EKG study [facility] [address] [place] [address] 12 Lead EKG 04/30/24 1706 MR#: [id number] Acct: [id number] Name: MOEYAS Brigido Rep #:[id number] : 1940 83 From: David Granados MD [...] was found Confirmed by DARWIN CABELLO, DAVID ([id number]), sports editor LEANDER BRAY ([id number]) on :48:33 AM Referred By: Corazon Wright Confirmed By: DAVID GRANADOS MD 05/01/2448 Date _ David Granados MD CC: Dr. Kwabena Menjivar MD; Dr. Corazon Wright, DO ~ Signed [facility] Work Phone: Phosphoruson 05-01-2024 Phosphate [Mass/Vol] 3.3 mg/dL Normal 2.7-4.[address] [facility] Comment on above: Performed By: #### L 500.2500, L501.2300, L100.0500 ####[facility] [address] [place], [address] Serum phosphorus measurement Ordered By: Corazon Wright on 05-01-2024 Phosphorus Level 3.3 mg/dL 2.7-4.5 [facility] 12 Lead EKGon 04-30-2024 12 Lead EKG Normal [facility] CBC-Complete Blood Cnt No Di ffon 04-29-2024 HCT Normal 40-54 [facility] Comment on above: Result Comment: Daniel hamm via OM: Ordered Performed By: #### L 100.0500 ####[facility] [address] [place], [address] HGB Normal 13.0-16.5 [facility] Comment on above: Result Comment: Daniel hamm via OM: Ordered Performed By: #### L 100.0500 ####[facility] [address] [place], [address] MCH Normal 27.0-32.0 [facility] Comment on above: Result Comment: Daniel hamm via OM: MD Ordered Performed By: #### L 100.0500 ####[facility] [address] [place], [address] MCHC Normal 32-36 [facility] Comment on above: Result Comment: Canc elled via OM: MD Ordered Performed By: #### L 100.0500 ####[facility] [address] [place], [address] MCV Normal 80-94 [facility] Comment on above: Result Comment: Canc elled via OM: MD Ordered Performed By: #### L 100.0500 ####[facility] [address] [place], [address] PLT Normal 150-450 [facility] Comment on above: Result Comment: Canc elled via OM: MD Ordered Performed By: #### L 100.0500 ####[facility] [address] [place], [address] RBC Normal 4.6-6.2 [facility] Comment on above: Result Comment: Canc elled via OM: MD Ordered Performed By: #### L 100.0500 ####[facility] [address] [place], [address] RDW CV Normal 11.6-14.6 [facility] Comment on above: Result Comment: Canc elled via OM: MD Ordered Performed By: #### L 100.0500 ####[facility] [address] [place], [address] RDW SD Normal 35.1-43.9 [facility] Comment on above: Result Comment: Canc elled via OM: MD Ordered Performed By: #### L 100.0500 ####[facility] [address] [place], [address] WBC Normal 4.4-11.0 [facility] Comment on above: Result Comment: Canc elled via OM: MD Ordered Performed By: #### L 100.0500 ####[facility] [address] [place], [address] L509.6001on 04-29-2024 CORTISOL 25.80 ug/dL High 6.02-18.40 [facility] Comment on above: Order Comment: Must be drawn 30-60 min AFTER cosyntropin admin. Performed By: #### L 509.6001 ####[facility] [address] [place], [address] CORTISOL 11.10 ug/dL Normal 6.02-18.40 [facility] Comment on above: Order Comment: must be performed shortly BEFORE cosyntropin admin Performed By: #### L 509.6001 ####[facility] [address] [place], [address] Lower GI hemoglobin IA Ql (S tl)Ordered By: Corazon Wright on 04-29-2024 Stool Occult Blood (JERMAINE) [facility] No Panel InformationOrdered By: Corazon Wright on 04-29-2024 Cortisol AM Sample 25.80 ug/dL High 6.02-18.40 [facility] 25.80 ug/dL High 6.02-18.40 [facility] Stool Occult Blood iFOBon STOB Negative Normal [facility] Comment on above: Performed By: #### M 100.7900 ####[facility] [address] [place], [address] Stool gastrointestinal hemog lobin detection by immunologic methodOrdered By: Corazon Wright on 04-29-2024 Lower GI hemoglobin IA Ql (Stl) [facility] Urine Cultureon 04-29-2024 URC Culture exhibits no growth. Normal [facility] Comment on above: Performed By: #### M 100.2200 ####[facility] [address] [place], [address] Basic Metabolic Profile (BMP )on 04-28-2024 BUN/CRE 30.3 RATIO High 10-20 [facility] Comment on above: Performed By: #### L 501.5200, L501.2300, L100.0500, L500.2500 ####[facility] [address] [place], [address] Calcium [Mass/Vol] 8.0 mg/dL Normal 7.6-11.0 [facility] Comment on above: Performed By: #### L 501.5200, L501.2300, L100.0500, L500.2500 ####[facility] [address] [place], [address] Chloride [Moles/Vol] 106 mmol/L Normal 98-[address] [facility] Comment on above: Performed By: #### L 501.5200, L501.2300, L100.0500, L500.2500 ####[facility] [address] [place], [address] CO2 [Moles/Vol] 22.8 mmol/L Normal 21.0-32.0 [facility] Comment on above: Performed By: #### L 501.5200, L501.2300, L100.0500, L500.2500 ####[facility] [address] [place], [address] Creatinine [Mass/Vol] 0.89 mg/dL Normal 0.70-1.20 [facility] Comment on above: Performed By: #### L 501.5200, L501.2300, L100.0500, L500.2500 ####[facility] [address] [place], [address] ECRCL 61.91 ml/min Normal 50-250 [facility] Comment on above: Performed By: #### L 501.5200, L501.2300, L100.0500, L500.2500 ####[facility] [address] [place], [address] GAP 8 Normal 5-15 [facility] Comment on above: Performed By: #### L 501.5200, L501.2300, L100.0500, L500.2500 ####[facility] [address] [place], [address] GFR/1.73 sq M.predicted among non-blacks MDRD (S/P/Bld) [Vol rate/Area] 86 mL/min/{1.73_m2} Normal >60 [facility] Comment on above: Result Comment: mL/m in/1.73m2 CKD-EPI Creatinine Equation (2020) Performed By: #### L 501.5200, L501.2300, L100.0500, L500.2500 ####[facility] [address] [place], [address] Glucose [Mass/Vol] 91 mg/dL Normal 70-99 [facility] Comment on above: Performed By: #### L 501.5200, L501.2300, L100.0500, L500.2500 ####[facility] [address] [place], [address] Potassium [Moles/Vol] 4.6 mmol/L Normal 3.3-5.1 [facility] Comment on above: Performed By: #### L 501.5200, L501.2300, L100.0500, L500.2500 ####[facility] [address] [place], [address] Sodium [Moles/Vol] 137 mmol/L Normal 133-145 [facility] Comment on above: Performed By: #### L 501.5200, L501.2300, L100.0500, L500.2500 ####[facility] [address] [place], [address] Urea nitrogen [Mass/Vol] 27 mg/dL High 4-19 [facility] Comment on above: Performed By: #### L 501.5200, L501.2300, L100.0500, L500.2500 ####[facility] [address] [place], [address] BUN Normal 4-19 [facility] Comment on above: Result Comment: Canc elled via OM: Order cancelled - Patient discharged Performed By: #### L 500.2500 ####[facility] [address] [place], [address] BUN/CRE Normal 10-20 [facility] Comment on above: Result Comment: Canc elled via OM: Order cancelled - Patient discharged Performed By: #### L 500.2500 ####[facility] [address] [place], [address] Calcium Normal 7.6-11.0 [facility] Comment on above: Result Comment: Canc elled via OM: Order cancelled - Patient discharged Performed By: #### L 500.2500 ####[facility] [address] [place], [address] CL Normal 98-108 [facility] Comment on above: Result Comment: Canc elled via OM: Order cancelled - Patient discharged Performed By: #### L 500.2500 ####[facility] [address] [place], [address] CO2 Normal 21.0-32.0 [facility] Comment on above: Result Comment: Canc elled via OM: Order cancelled - Patient discharged Performed By: #### L 500.2500 ####[facility] [address] [place], [address] CREAT,SERUM Normal 0.70-1.20 [facility] Comment on above: Result Comment: Canc elled via OM: Order cancelled - Patient discharged Performed By: #### L 500.2500 ####[facility] [address] [place], [address] eGFR Normal >60 [facility] Comment on above: Result Comment: Canc elled via OM: Order cancelled - Patient discharged Performed By: #### L 500.2500 ####[facility] [address] [place], [address] GAP Normal 5-15 [facility] Comment on above: Result Comment: Canc elled via OM: Order cancelled - Patient discharged Performed By: #### L 500.2500 ####[facility] [address] [place], [address] GLU Normal 70-99 [facility] Comment on above: Result Comment: Canc elled via OM: Order cancelled - Patient discharged Performed By: #### L 500.2500 ####[facility] [address] [place], [address] Potassium Normal 3.3-5.1 [facility] Comment on above: Result Comment: Canc elled via OM: Order cancelled - Patient discharged Performed By: #### L 500.2500 ####[facility] [address] [place], [address] Basic Metabolic Profile (BMP) Normal 133-145 [facility] Comment on above: Result Comment: Canc elled via OM: Order cancelled - Patient discharged Performed By: #### L 500.2500 ####[facility] [address] [place], [address] Bilirubin directOrdered By: Corazon Wright on 04-28-2024 Bilirubin.direct [Mass/Vol] 0.18 mg/dL 0.00-0.30 [facility] Bilirubin, totalOrdered By: Corazon Wright on 04-28-2024 Bilirubin [Mass/Vol] 0.37 mg/dL 0.00-1.[address] [facility] CBC W/Diff, Automatedon - Absolute Neut Normal 2.0-7.7 [facility] Comment on above: Result Comment: Canc elled via OM: Order cancelled - Patient discharged Performed By: #### L 100.0100 ####[facility] [address] [place], [address] HCT Normal 40-54 [facility] Comment on above: Result Comment: Canc elled via OM: Order cancelled - Patient discharged Performed By: #### L 100.0100 ####[facility] [address] [place], [address] HGB Normal 13.0-16.5 [facility] Comment on above: Result Comment: Canc elled via OM: Order cancelled - Patient discharged Performed By: #### L 100.0100 ####[facility] [address] [place], [address] MCH Normal 27.0-32.0 [facility] Comment on above: Result Comment: Canc elled via OM: Order cancelled - Patient discharged Performed By: #### L 100.0100 ####[facility] [address] [place], [address] MCHC Normal 32-36 [facility] Comment on above: Result Comment: Canc elled via OM: Order cancelled - Patient discharged Performed By: #### L 100.0100 ####[facility] [address] [place], [address] MCV Normal 80-94 [facility] Comment on above: Result Comment: Canc elled via OM: Order cancelled - Patient discharged Performed By: #### L 100.0100 ####[facility] [address] [place], [address] NEUT% Normal 47-70 [facility] Comment on above: Result Comment: Canc elled via OM: Order cancelled - Patient discharged Performed By: #### L 100.0100 ####[facility] [address] [place], [address] PLT Normal 150-450 [facility] Comment on above: Result Comment: Canc elled via OM: Order cancelled - Patient discharged Performed By: #### L 100.0100 ####[facility] [address] [place], [address] RBC Normal 4.6-6.2 [facility] Comment on above: Result Comment: Canc elled via OM: Order cancelled - Patient discharged Performed By: #### L 100.0100 ####[facility] [address] [place], [address] RDW CV Normal 11.6-14.6 [facility] Comment on above: Result Comment: Canc elled via OM: Order cancelled - Patient discharged Performed By: #### L 100.0100 ####[facility] [address] [place], [address] RDW SD Normal 35.1-43.9 [facility] Comment on above: Result Comment: Canc elled via OM: Order cancelled - Patient discharged Performed By: #### L 100.0100 ####[facility] [address] [place], [address] WBC Normal 4.4-11.0 [facility] Comment on above: Result Comment: Canc elled via OM: Order cancelled - Patient discharged Performed By: #### L 100.0100 ####[facility] [address] [place], [address] CBC-Complete Blood Cnt No Di ffon 04-28-2024 Erythrocyte distribution width (RBC) [Ratio] 12.7 % Normal 11.6-14.6 [facility] Comment on above: Performed By: #### L 501.5200, L501.2300, L100.0500, L500.2500 ####[facility] [address] [place], [address] Hematocrit (Bld) [Volume fraction] 35.3 % Low 40-54 [facility] Comment on above: Performed By: #### L 501.5200, L501.2300, L100.0500, L500.2500 ####[facility] [address] [place], [address] Hemoglobin (Bld) [Mass/Vol] 12.4 g/dL Low 13.0-16.5 [facility] Comment on above: Performed By: #### L 501.5200, L501.2300, L100.0500, L500.2500 ####[facility] [address] [place], [address] MCH (RBC) [Entitic mass] 30.6 pg Normal 27.0-32.0 [facility] Comment on above: Performed By: #### L 501.5200, L501.2300, L100.0500, L500.2500 ####[facility] [address] [place], [address] MCHC (RBC) [Mass/Vol] 35.1 g/dL Normal 32-36 [facility] Comment on above: Performed By: #### L 501.5200, L501.2300, L100.0500, L500.2500 ####[facility] [address] [place], [address] MCV (RBC) [Entitic vol] 87.2 fL Normal 80-94 [facility] Comment on above: Performed By: #### L 501.5200, L501.2300, L100.0500, L500.2500 ####[facility] [address] [place], [address] Platelet mean volume (Bld) [Entitic vol] 8.8 fL Normal 6.2-12.0 [facility] Comment on above: Performed By: #### L 501.5200, L501.2300, L100.0500, L500.2500 ####[facility] [address] [place], [address] Platelets (Bld) [#/Vol] 164 10*3/uL Normal 150-450 [facility] Comment on above: Performed By: #### L 501.5200, L501.2300, L100.0500, L500.2500 ####[facility] [address] [place], [address] RBC (Bld) [#/Vol] 4.05 10*6/uL Low 4.6-6.2 [facility] Comment on above: Performed By: #### L 501.5200, L501.2300, L100.0500, L500.2500 ####[facility] [address] [place], [address] RDW SD 40.3 fl Normal 35.1-43.9 [facility] Comment on above: Performed By: #### L 501.5200, L501.2300, L100.0500, L500.2500 ####[facility] [address] [place], [address] WBC (Bld) [#/Vol] 11.3 10*3/uL High 4.4-11.0 [facility] Comment on above: Performed By: #### L 501.5200, L501.2300, L100.0500, L500.2500 ####[facility] [address] [place], [address] L509.6001on 04-28-2024 CORTISOL 3.92 ug/dL Low 6.02-18.40 [facility] Comment on above: Order Comment: Cecelia snyder use the blood drawn this AM Performed By: #### L 509.6001 ####[facility] [address] [place], [address] Laboratory - Chemistry and C hemistry - challengeOrdered By: Corazon Wright on 04-28-2024 AST [Catalytic activity/Vol] 25 U/L <38 [facility] Liver Profileon 04-28-2024 Albumin [Mass/Vol] 3.1 g/dL Low 3.4-4.8 [facility] Comment on above: Performed By: #### L 501.9520, L500.3400 ####[facility] [address] [place], [address] ALK PHOS 70 U/L Normal 40-129 [facility] Comment on above: Performed By: #### L 501.9520, L500.3400 ####[facility] [address] [place], [address] ALT [Catalytic activity/Vol] 44 U/L Normal <=46 [facility] Comment on above: Performed By: #### L 501.9520, L500.3400 ####[facility] [address] [place], [address] AST [Catalytic activity/Vol] 25 U/L Normal <=37 [facility] Comment on above: Performed By: #### L 501.9520, L500.3400 ####[facility] [address] [place], [address] Bilirubin [Mass/Vol] 0.37 mg/dL Normal 0.00-1.[address] [facility] Comment on above: Performed By: #### L 501.9520, L500.3400 ####[facility] [address] [place], [address] Bilirubin.direct [Mass/Vol] 0.18 mg/dL Normal 0.00-0.30 [facility] Comment on above: Performed By: #### L 501.9520, L500.3400 ####[facility] [address] [place], [address] Globulin (S) [Mass/Vol] 2.0 g/dL Low 2.2-4.2 [facility] Comment on above: Performed By: #### L 501.9520, L500.3400 ####[facility] [address] [place], [address] T PROT 5.1 g/dL Low 5.9-8.4 [facility] Comment on above: Performed By: #### L 501.9520, L500.3400 ####[facility] [address] [place], [address] Magnesiumon 04-28-2024 Magnesium [Mass/Vol] 2.6 mg/dL High 1.5-2.[address] [facility] Comment on above: Performed By: #### L 501.5200, L501.2300, L100.0500, L500.2500 ####[facility] [address] [place], [address] Magnesium (Unsp spec) [Mass/ Vol]Ordered By: Corazon Wright on 04-28-2024 Magnesium [Mass/Vol] 2.6 mg/dL High 1.5-2.[address] [facility] Magnesium measurement (mass/ volume)Ordered By: Corazon Wright on 04-28-2024 Magnesium (Unsp spec) [Mass/Vol] 2.6 mg/dL High 1.5-2.2 [facility] No Panel InformationOrdered By: Corazon Wright on 04-28-2024 25 U/L <38 [facility] PSA, total screeningOrdered By: Corazon Wright on 04-28-2024 Prostate Specific Antigen Screen 0.33 ng/mL 0.02-4.00 [facility] Comment on above: This test was perfor [...] 04-28-2024 PSA,TOT SCREEN 0.33 ng/mL Normal 0.02-4.00 [facility] Comment on above: Result Comment: This test was performed using the [employer] tPSAmethod. Measured values of a patient??sample can varydepending on the testing procedure used. PSA valuesdetermined on patient samples by different testingprocedures cannot be used interchangeably. If there is achange in PSA assays while monitoring therapy, sequentialtesting should be performed to confirm baseline values. Performed By: #### L 501.9910 ####[facility] [address] [place], [address] Phosphoruson 04-28-2024 Phosphate [Mass/Vol] 2.4 mg/dL Low 2.7-4.[address] [facility] Comment on above: Performed By: #### L 501.5200, L501.2300, L100.0500, L500.2500 ####[facility] [address] [place], [address] Serum globulin measurementOr dered By: Corazon Wright on 04-28-2024 Globulin (S) [Mass/Vol] 2.0 g/dL Low 2.2-4.2 [facility] Serum or plasma alanine olmedo otransferase (ALT) measurementOrdered By: Corazon Wright on 04-28-2024 ALT [Catalytic activity/Vol] 44 U/L <47 [facility] Serum or plasma albumin ratna urement (mass/volume)Ordered By: Corazon Wright on 04-28-2024 Albumin [Mass/Vol] 3.1 g/dL Low 3.4-4.8 [facility] Serum or plasma alkaline garry sphatase measurementOrdered By: Corazon Wright on 04-28-2024 ALP [Catalytic activity/Vol] 70 U/L 40-129 [facility] TSH DL <= 0.005 mIU/L QnOrde red By: Corazon Wright on 04-28-2024 Thyroid Stimulating Hormone (TSH) 1.030 uIU/mL 0.300-4.200 [facility] TSH Qn 1.030 uIU/mL 0.300-4.200 [facility] Thyroid Stim Hormone (TSH)on 04-28-2024 TSH 1.030 uIU/mL Normal 0.300-4.200 [facility] Comment on above: Performed By: #### L 501.9520, L500.3400 ####[facility] [address] [place], [address] Total proteinOrdered By: Aura Wright on 04-28-2024 Protein [Mass/Vol] 5.1 g/dL Low 5.9-8.4 [facility] Urinalysis, Completeon 04-28 RBC 0 SEEN Normal 0-5 [facility] Comment on above: Order Comment: YOSVANY TER SPECIMEN Performed By: #### L 400.0001 ####[facility] [address] [place], [address] Absolute lymphocyte countOrd ered By: Harishlali Baxter on 04-27-2024 Lymphocytes Auto (Unsp spec) [#/Vol] 1.59 10*3/uL 0.83-4.51 [facility] Absolute neutrophil countOrd ered By: Harish Baxter on 04-27-2024 Neutrophils (Bld) [#/Vol] 8.8 10*3/uL High 2.0-7.7 [facility] Anion gap in Serum or Plasma Ordered By: Harish Baxter on 04-27-2024 Anion gap [Moles/Vol] 12 mmol/L 5-15 [facility] Automated lymphocyte count a s percentage of total leukocytesOrdered By: Harish Baxter on 04-27-2024 Lymphocytes/100 WBC Auto (Unsp spec) 14.3 % Low 19-41 [facility] BUN/creatinine ratioOrdered By: Harish Baxter on 04-27-2024 Urea nitrogen/Creatinine [Mass ratio] 21.3 mg/mg High 10- [facility] Basic Metabolic Profile (BMP )on 04-27-2024 BUN/CRE 21.3 RATIO High 10- [facility] Comment on above: Performed By: #### L 500.2500 ####[facility] [address] [place], [address] Calcium [Mass/Vol] 8.2 mg/dL Normal 7.6-11.0 [facility] Comment on above: Performed By: #### L 500.2500 ####[facility] [address] [place], [address] Chloride [Moles/Vol] 103 mmol/L Normal 98-[address] [facility] Comment on above: Performed By: #### L 500.2500 ####[facility] [address] [place], [address] CO2 [Moles/Vol] 20.1 mmol/L Low 21.0-32.0 [facility] Comment on above: Performed By: #### L 500.2500 ####[facility] [address] [place], [address] Creatinine [Mass/Vol] 0.91 mg/dL Normal 0.70-1.20 [facility] Comment on above: Performed By: #### L 500.2500 ####[facility] [address] [place], [address] ECRCL 60.55 ml/min Normal 50-250 [facility] Comment on above: Performed By: #### L 500.2500 ####[facility] [address] [place], [address] GAP 12 Normal 5-15 [facility] Comment on above: Performed By: #### L 500.2500 ####[facility] [address] [place], [address] GFR/1.73 sq M.predicted among non-blacks MDRD (S/P/Bld) [Vol rate/Area] 84 mL/min/{1.73_m2} Normal >60 [facility] Comment on above: Result Comment: mL/m in/1.73m2 CKD-EPI Creatinine Equation (2020) Performed By: #### L 500.2500 ####[facility] [address] [place], [address] Glucose [Mass/Vol] 123 mg/dL High 70-99 [facility] Comment on above: Performed By: #### L 500.2500 ####[facility] [address] [place], [address] Potassium [Moles/Vol] 4.6 mmol/L Normal 3.3-5.1 [facility] Comment on above: Performed By: #### L 500.2500 ####[facility] [address] [place], [address] Sodium [Moles/Vol] 136 mmol/L Normal 133-145 [facility] Comment on above: Performed By: #### L 500.2500 ####[facility] [address] [place], [address] Urea nitrogen [Mass/Vol] 19 mg/dL Normal 4-19 [facility] Comment on above: Performed By: #### L 500.2500 ####[facility] [address] [place], [address] BUN Normal 4-19 [facility] Comment on above: Result Comment: Canc elled via OM: MD Ordered Performed By: #### L 100.0500, L500.2500 ####[facility] [address] [place], [address] BUN/CRE Normal 10-20 [facility] Comment on above: Result Comment: Canc elled via OM: MD Ordered Performed By: #### L 100.0500, L500.2500 ####[facility] [address] [place], [address] Calcium Normal 7.6-11.0 [facility] Comment on above: Result Comment: Canc elled via OM: MD Ordered Performed By: #### L 100.0500, L500.2500 ####[facility] [address] [place], [address] CL Normal 98-108 [facility] Comment on above: Result Comment: Canc elled via OM: MD Ordered Performed By: #### L 100.0500, L500.2500 ####[facility] [address] [place], [address] CO2 Normal 21.0-32.0 [facility] Comment on above: Result Comment: Canc elled via OM: MD Ordered Performed By: #### L 100.0500, L500.2500 ####[facility] [address] [place], [address] CREAT,SERUM Normal 0.70-1.20 [facility] Comment on above: Result Comment: Canc elled via OM: MD Ordered Performed By: #### L 100.0500, L500.2500 ####[facility] [address] [place], [address] eGFR Normal >60 [facility] Comment on above: Result Comment: Canc elled via OM: MD Ordered Performed By: #### L 100.0500, L500.2500 ####[facility] [address] [place], [address] GAP Normal 5-15 [facility] Comment on above: Result Comment: Canc elled via OM: MD Ordered Performed By: #### L 100.0500, L500.2500 ####[facility] [address] [place], [address] GLU Normal 70-99 [facility] Comment on above: Result Comment: Canc elled via OM: MD Ordered Performed By: #### L 100.0500, L500.2500 ####[facility] [address] [place], [address] Potassium Normal 3.3-5.1 [facility] Comment on above: Result Comment: Canc elled via OM: MD Ordered Performed By: #### L 100.0500, L500.2500 ####[facility] [address] [place], [address] Basic Metabolic Profile (BMP) Normal 133-145 [facility] Comment on above: Result Comment: Canc elled via OM: MD Ordered Performed By: #### L 100.0500, L500.2500 ####[facility] [address] [place], [address] Basophil percentageOrdered B y: Harish Baxter on 04-27-2024 Basophils/100 WBC (Bld) 0.2 % 0-1 [facility] CBC W/Diff, Automatedon 04-09 0 Absolute Lymph 1.59 X10 3/uL Normal 0.83-4.51 [facility] Comment on above: Performed By: #### L 100.0100 ####[facility] [address] [place], [address] Absolute Neut 8.8 X10 3/uL High 2.0-7.7 [facility] Comment on above: Performed By: #### L 100.0100 ####[facility] [address] [place], [address] Basophils/100 WBC (Bld) 0.2 % Normal 0-1 [facility] Comment on above: Performed By: #### L 100.0100 ####[facility] [address] [place], [address] Eosinophils/100 WBC (Bld) 0.0 % Normal 0-5 [facility] Comment on above: Performed By: #### L 100.0100 ####[facility] [address] [place], [address] Erythrocyte distribution width (RBC) [Ratio] 12.3 % Normal 11.6-14.6 [facility] Comment on above: Performed By: #### L 100.0100 ####[facility] [address] [place], [address] Hematocrit (Bld) [Volume fraction] 37.9 % Low 40-54 [facility] Comment on above: Performed By: #### L 100.0100 ####[facility] [address] [place], [address] Hemoglobin (Bld) [Mass/Vol] 13.0 g/dL Normal 13.0-16.5 [facility] Comment on above: Performed By: #### L 100.0100 ####[facility] [address] [place], [address] IG% 0.900 Normal 0.0-0.9 [facility] Comment on above: Result Comment: IG% - Immature Granulocytes (promyelocytes, myelocytes andmetamyelocytes) > 1% indicates that a LEFT SHIFT is Present. Performed By: #### L 100.0100 ####[facility] [address] [place], [address] Lymphocytes/100 WBC (Bld) 14.3 % Low 19-41 [facility] Comment on above: Performed By: #### L 100.0100 ####[facility] [address] [place], [address] MCH (RBC) [Entitic mass] 30.0 pg Normal 27.0-32.0 [facility] Comment on above: Performed By: #### L 100.0100 ####[facility] [address] [place], [address] MCHC (RBC) [Mass/Vol] 34.3 g/dL Normal 32-36 [facility] Comment on above: Performed By: #### L 100.0100 ####[facility] [address] [place], [address] MCV (RBC) [Entitic vol] 87.5 fL Normal 80-94 [facility] Comment on above: Performed By: #### L 100.0100 ####[facility] [address] [place], [address] Monocytes/100 WBC (Bld) 5.8 % Normal 0-10 [facility] Comment on above: Performed By: #### L 100.0100 ####[facility] [address] [place], [address] Neutrophils/100 WBC (Bld) 78.8 % High 47-70 [facility] Comment on above: Performed By: #### L 100.0100 ####[facility] [address] [place], [address] Nucleated RBC (Bld) [#/Vol] 0 10*3/uL Normal 0-5 [facility] Comment on above: Performed By: #### L 100.0100 ####[facility] [address] [place], [address] Platelet mean volume (Bld) [Entitic vol] 8.6 fL Normal 6.2-12.0 [facility] Comment on above: Performed By: #### L 100.0100 ####[facility] [address] [place], [address] Platelets (Bld) [#/Vol] 178 10*3/uL Normal 150-450 [facility] Comment on above: Performed By: #### L 100.0100 ####[facility] [address] [place] [place], [address] RBC (Bld) [#/Vol] 4.33 10*6/uL Low 4.6-6.2 [facility] Comment on above: Performed By: #### L 100.0100 ####[facility] [address] [place], [address] RDW SD 39.6 fl Normal 35.1-43.9 [facility] Comment on above: Performed By: #### L 100.0100 ####[facility] [address] [place], [address] WBC (Bld) [#/Vol] 11.1 10*3/uL High 4.4-11.0 [facility] Comment on above: Performed By: #### L 100.0100 ####[facility] [address] [place], [address] CBC-Complete Blood Cnt No Di ffon 04-27-2024 HCT Normal 40-54 [facility] Comment on above: Result Comment: Canc elled via OM: MD Ordered Performed By: #### L 100.0500, L500.2500 ####[facility] [address] [place], [address] HGB Normal 13.0-16.5 [facility] Comment on above: Result Comment: Canc elled via OM: MD Ordered Performed By: #### L 100.0500, L500.2500 ####[facility] [address] [place], [address] MCH Normal 27.0-32.0 [facility] Comment on above: Result Comment: Canc elled via OM: MD Ordered Performed By: #### L 100.0500, L500.2500 ####[facility] [address] [place], [address] MCHC Normal 32-36 [facility] Comment on above: Result Comment: Canc elled via OM: MD Ordered Performed By: #### L 100.0500, L500.2500 ####[facility] [address] [place], [address] MCV Normal 80-94 [facility] Comment on above: Result Comment: Canc elled via OM: MD Ordered Performed By: #### L 100.0500, L500.2500 ####[facility] [address] [place], [address] PLT Normal 150-450 [facility] Comment on above: Result Comment: Canc elled via OM: MD Ordered Performed By: #### L 100.0500, L500.2500 ####[facility] [address] [place], [address] RBC Normal 4.6-6.2 [facility] Comment on above: Result Comment: Canc elled via OM: MD Ordered Performed By: #### L 100.0500, L500.2500 ####[facility] [address] [place], [address] RDW CV Normal 11.6-14.6 [facility] Comment on above: Result Comment: Canc elled via OM: MD Ordered Performed By: #### L 100.0500, L500.2500 ####[facility] [address] [place], [address] RDW SD Normal 35.1-43.9 [facility] Comment on above: Result Comment: Canc elled via OM: MD Ordered Performed By: #### L 100.0500, L500.2500 ####[facility] [address] [place], [address] WBC Normal 4.4-11.0 [facility] Comment on above: Result Comment: Canc elled via OM: MD Ordered Performed By: #### L 100.0500, L500.2500 ####[facility] [address] [place], [address] Carbon dioxide, total [Moles /volume] in Central venous bloodOrdered By: Harish Baxter on 04-27-2024 CO2 [Moles/Vol] 20.1 mmol/L Low 21.0-32.0 [facility] Cerv Spine 2 or 3 Viewson Cerv Spine 2 or 3 Views Normal [facility] Chloride assayOrdered By: Carmela Baxter on 04-27-2024 Chloride [Moles/Vol] 103 mmol/L 98-[address] [facility] Discharge Instructionon 04-09 Discharge Instruction Normal [facility] Eosinophil percentageOrdered By: Harish Baxter on 04-27-2024 Eosinophils/100 WBC (Bld) 0.0 % 0-5 [facility] Erythrocyte distribution wid th ratioOrdered By: Harish Baxter on 04-27-2024 Erythrocyte distribution width (RBC) [Ratio] 12.3 % 11.6-14.6 [facility] Erythrocyte distribution wid th standard deviationOrdered By: Harish Baxter on 04-27-2024 Erythrocyte distribution width (RBC) [Entitic vol] 39.6 fL 35.1-43.9 [facility] Erythrocyte distribution width (RBC) [Ratio] 39.6 fl 35.1-43.9 [facility] Estimation of creatinine yahir aranceOrdered By: Harish Baxter on 04-27-2024 Estimated Creatinine Clearance Calc 60.55 ml/min 50-250 [facility] GFR/1.73 sq M.predicted darrick g non-blacks MDRD (S/P/Bld) [Vol rate/Area]Ordered By: Harish Baxter on 04-27-2024 Estimated GFR (MDRD) Non-Af Amer 84 >60 [facility] Comment on above: mL/min/1.73m2 CKD-EP I Creatinine Equation (2020) Glomerular filtration rate ( GFR) estimation/1.73 sq m using serum, plasma, or whole bOrdered By: Harish Baxter on 04-27-2024 GFR/1.73 sq M.predicted among non-blacks MDRD (S/P/Bld) [Vol rate/Area] 84 mL/min/{1.73_m2} >60 [facility] Hematocrit Auto (Bld) [Volum e fraction]Ordered By: Harish Baxter on 04-27-2024 Hematocrit (Bld) [Volume fraction] 37.9 % Low 40-54 [facility] Hemoglobin measurementOrdere d By: Harish Baxter on 04-27-2024 Hemoglobin (Bld) [Mass/Vol] 13.0 g/dL 13.0-16.5 [facility] Immature granulocytes/100 WB C Auto (Bld)Ordered By: Harish Baxter on 04-27-2024 Immature granulocytes/100 WBC (Bld) 0.900 % 0.0-0.9 [facility] Comment on above: IG% - Immature Granu locytes (promyelocytes, myelocytes and metamyelocytes) > 1% indicates that a LEFT SHIFT is Present. Lymphocytes Auto (Unsp spec) [#/Vol]Ordered By: Harish Baxter on 04-27-2024 Lymphocytes (Bld) [#/Vol] 1.59 10*3/uL 0.83-4.51 [facility] Lymphocytes/100 WBC Auto (Un sp spec)Ordered By: Harish Baxter on 04-27-2024 Lymphocytes/100 WBC (Bld) 14.3 % Low 19-41 [facility] MCV (mean corpuscular volume ) determinationOrdered By: Harish Baxter on 04-27-2024 MCV (RBC) [Entitic vol] 87.5 fL 80-94 [facility] Mean corpuscular hemoglobin (MCH) determinationOrdered By: Harish Baxter on 04-27-2024 MCH (RBC) [Entitic mass] 30.0 pg 27.0-32.0 [facility] Mean corpuscular hemoglobin concentration (MCHC) determinationOrdered By: Harish Baxter on 04-27-2024 MCHC (RBC) [Mass/Vol] 34.3 g/dL 32-36 [facility] Mean platelet volume determi nationOrdered By: Harish Baxter on 04-27-2024 Platelet mean volume (Bld) [Entitic vol] 8.6 fL 6.2-12.0 [facility] Monocyte percentageOrdered B y: Harish Baxter on 04-27-2024 Monocytes/100 WBC (Bld) 5.8 % 0-10 [facility] Neutrophil percentageOrdered By: Harish Baxter on 04-27-2024 Neutrophils/100 WBC (Bld) 78.8 % High 47-70 [facility] Nucleated red blood cell per centageOrdered By: Harish Baxter on 04-27-2024 Nucleated RBC/100 WBC (Bld) [Ratio] 0 % 0-5 [facility] Platelet countOrdered By: Carmela Baxter on 04-27-2024 Platelets (Bld) [#/Vol] 178 10*3/uL 150-450 [facility] Potassium (Unsp spec) [Mass/ Vol]Ordered By: Harish Baxter on 04-27-2024 Potassium [Moles/Vol] 4.6 mmol/L 3.3-5.1 [facility] Potassium measurement (mass/ volume)Ordered By: Harish Baxter on 04-27-2024 Potassium (Unsp spec) [Mass/Vol] 4.6 mmol/L 3.3-5.1 [facility] RBC Auto (Bld) [#/Vol]Ordere d By: Harish Baxter on 04-27-2024 RBC (Bld) [#/Vol] 4.33 10*6/uL Low 4.6-6.2 [facility] Serum creatinine measurement (mass/volume)Ordered By: Harish Baxter on 04-27-2024 Creatinine [Mass/Vol] 0.91 mg/dL 0.70-1.20 [facility] Serum glucose measurement (m ass/volume)Ordered By: Harish Baxter on 04-27-2024 Glucose [Mass/Vol] 123 mg/dL High 70-99 [facility] Serum or plasma calcium ratna urement (mass/volume)Ordered By: Harish Batxer on 04-27-2024 Calcium [Mass/Vol] 8.2 mg/dL 7.6-11.0 [facility] Serum or plasma urea nitroge n measurement (mass/volume)Ordered By: Harish Baxter on 04-27-2024 Urea nitrogen [Mass/Vol] 19 mg/dL 4-19 [facility] Sodium levelOrdered By: Jade Baxter on 04-27-2024 Sodium [Moles/Vol] 136 mmol/L 133-145 [facility] Urine cultureOrdered By: Aura Wright on 04-27-2024 Bacteria identified Cx Nom (U) Culture exhibits no growth. [facility] White blood cell (WBC) count Ordered By: Harish Baxter on 04-27-2024 WBC (Bld) [#/Vol] 11.1 10*3/uL High 4.4-11.0 [facility] Basic Metabolic Profile (BMP )on 04-26-2024 BUN/CRE 23.4 RATIO High 10- [facility] Comment on above: Performed By: #### L 500.2500, L100.0100 ####[facility] [address] [place], [address] Calcium [Mass/Vol] 8.2 mg/dL Normal 7.6-11.0 [facility] Comment on above: Performed By: #### L 500.2500, L100.0100 ####[facility] [address] [place], [address] Chloride [Moles/Vol] 107 mmol/L Normal 98-[address] [facility] Comment on above: Performed By: #### L 500.2500, L100.0100 ####[facility] [address] [place], [address] CO2 [Moles/Vol] 22.8 mmol/L Normal 21.0-32.0 [facility] Comment on above: Performed By: #### L 500.2500, L100.0100 ####[facility] [address] [place], [address] Creatinine [Mass/Vol] 0.83 mg/dL Normal 0.70-1.20 [facility] Comment on above: Performed By: #### L 500.2500, L100.0100 ####[facility] [address] [place], [address] ECRCL 66.39 ml/min Normal 50-250 [facility] Comment on above: Performed By: #### L 500.2500, L100.0100 ####[facility] [address] [place], [address] GAP 6 Normal 5-15 [facility] Comment on above: Performed By: #### L 500.2500, L100.0100 ####[facility] [address] [place], [address] GFR/1.73 sq M.predicted among non-blacks MDRD (S/P/Bld) [Vol rate/Area] 87 mL/min/{1.73_m2} Normal >60 [facility] Comment on above: Result Comment: mL/m in/1.73m2 CKD-EPI Creatinine Equation (2020) Performed By: #### L 500.2500, L100.0100 ####[facility] [address] [place], [address] Glucose [Mass/Vol] 91 mg/dL Normal 70-99 [facility] Comment on above: Performed By: #### L 500.2500, L100.0100 ####[facility] [address] [place], [address] Potassium [Moles/Vol] 4.5 mmol/L Normal 3.3-5.1 [facility] Comment on above: Performed By: #### L 500.2500, L100.0100 ####[facility] [address] [place], [address] Sodium [Moles/Vol] 136 mmol/L Normal 133-145 [facility] Comment on above: Performed By: #### L 500.2500, L100.0100 ####[facility] [address] [place], [address] Urea nitrogen [Mass/Vol] 20 mg/dL High 4-19 [facility] Comment on above: Performed By: #### L 500.2500, L100.0100 ####[facility] [address] [place], [address] CBC W/Diff, Automatedon 04-08 Absolute Lymph 2.30 X10 3/uL Normal 0.83-4.51 [facility] Comment on above: Performed By: #### L 500.2500, L100.0100 ####[facility] [address] [place], [address] Absolute Neut 5.4 X10 3/uL Normal 2.0-7.7 [facility] Comment on above: Performed By: #### L 500.2500, L100.0100 ####[facility] [address] [place], [address] Basophils/100 WBC (Bld) 0.1 % Normal 0-1 [facility] Comment on above: Performed By: #### L 500.2500, L100.0100 ####[facility] [address] [place], [address] Eosinophils/100 WBC (Bld) 2.2 % Normal 0-5 [facility] Comment on above: Performed By: #### L 500.2500, L100.0100 ####[facility] [address] [place], [address] Erythrocyte distribution width (RBC) [Ratio] 12.5 % Normal 11.6-14.6 [facility] Comment on above: Performed By: #### L 500.2500, L100.0100 ####[facility] [address] [place], [address] Hematocrit (Bld) [Volume fraction] 38.8 % Low 40-54 [facility] Comment on above: Performed By: #### L 500.2500, L100.0100 ####[facility] [address] [place], [address] Hemoglobin (Bld) [Mass/Vol] 13.3 g/dL Normal 13.0-16.5 [facility] Comment on above: Performed By: #### L 500.2500, L100.0100 ####[facility] [address] [place], [address] IG% 0.700 Normal 0.0-0.9 [facility] Comment on above: Result Comment: IG% - Immature Granulocytes (promyelocytes, myelocytes andmetamyelocytes) > 1% indicates that a LEFT SHIFT is Present. Performed By: #### L 500.2500, L100.0100 ####[facility] [address] [place], [address] Lymphocytes/100 WBC (Bld) 26.4 % Normal 19-41 [facility] Comment on above: Performed By: #### L 500.2500, L100.0100 ####[facility] [address] [place], [address] MCH (RBC) [Entitic mass] 29.8 pg Normal 27.0-32.0 [facility] Comment on above: Performed By: #### L 500.2500, L100.0100 ####[facility] [address] [place], [address] MCHC (RBC) [Mass/Vol] 34.3 g/dL Normal 32-36 [facility] Comment on above: Performed By: #### L 500.2500, L100.0100 ####[facility] [address] [place], [address] MCV (RBC) [Entitic vol] 87.0 fL Normal 80-94 [facility] Comment on above: Performed By: #### L 500.2500, L100.0100 ####[facility] [address] [place], [address] Monocytes/100 WBC (Bld) 8.2 % Normal 0-10 [facility] Comment on above: Performed By: #### L 500.2500, L100.0100 ####[facility] [address] [place], [address] Neutrophils/100 WBC (Bld) 62.4 % Normal 47-70 [facility] Comment on above: Performed By: #### L 500.2500, L100.0100 ####[facility] [address] [place], [address] Nucleated RBC (Bld) [#/Vol] 0 10*3/uL Normal 0-5 [facility] Comment on above: Performed By: #### L 500.2500, L100.0100 ####[facility] [address] [place], [address] Platelet mean volume (Bld) [Entitic vol] 8.5 fL Normal 6.2-12.0 [facility] Comment on above: Performed By: #### L 500.2500, L100.0100 ####[facility] [address] [place], [address] Platelets (Bld) [#/Vol] 168 10*3/uL Normal 150-450 [facility] Comment on above: Performed By: #### L 500.2500, L100.0100 ####[facility] [address] [place], [address] RBC (Bld) [#/Vol] 4.46 10*6/uL Low 4.6-6.2 [facility] Comment on above: Performed By: #### L 500.2500, L100.0100 ####[facility] [address] [place], [address] RDW SD 39.8 fl Normal 35.1-43.9 [facility] Comment on above: Performed By: #### L 500.2500, L100.0100 ####[facility] [address] [place], [address] WBC (Bld) [#/Vol] 8.7 10*3/uL Normal 4.4-11.0 [facility] Comment on above: Performed By: #### L 500.2500, L100.0100 ####[facility] [address] [place], [address] Cerv Spine 2 or 3 Viewson Cerv Spine 2 or 3 Views Normal [facility] HH, Hemoglobin AND Hematocri ton 04-26-2024 Hematocrit (Bld) [Volume fraction] 37.7 % Low 40-54 [facility] Comment on above: Performed By: #### L 100.0600 ####[facility] [address] [place], [address] Hemoglobin (Bld) [Mass/Vol] 12.8 g/dL Low 13.0-16.5 [facility] Comment on above: Performed By: #### L 100.0600 ####[facility] [address] [place], [address] MR/POSTOP.ANEon 04-26-2024 MR/POSTOP.ANE Normal [facility] MR/POSTOP.ANE Normal [facility] MR/KDYHKMOU9ph 04-26-2024 MR/POSTOPAN2 Normal [facility] O.R. Fluoro for C-Cr 04-08 O.R. Fluoro for C-Arm Normal [facility] Operative Reporton Operative Report Normal [facility] Basic Metabolic Profile (BMP )on 04-25-2024 BUN/CRE 26.7 RATIO High 10-20 [facility] Comment on above: Performed By: #### L 500.2500, L100.0100 ####[facility] [address] [place], [address] Calcium [Mass/Vol] 8.5 mg/dL Normal 7.6-11.0 [facility] Comment on above: Performed By: #### L 500.2500, L100.0100 ####[facility] [address] [place], [address] Chloride [Moles/Vol] 103 mmol/L Normal 98-[address] [facility] Comment on above: Performed By: #### L 500.2500, L100.0100 ####[facility] [address] [place], [address] CO2 [Moles/Vol] 24.3 mmol/L Normal 21.0-32.0 [facility] Comment on above: Performed By: #### L 500.2500, L100.0100 ####[facility] [address] [place], [address] Creatinine [Mass/Vol] 0.90 mg/dL Normal 0.70-1.20 [facility] Comment on above: Performed By: #### L 500.2500, L100.0100 ####[facility] [address] [place], [address] ECRCL 61.22 ml/min Normal 50-250 [facility] Comment on above: Performed By: #### L 500.2500, L100.0100 ####[facility] [address] [place], [address] GAP 10 Normal 5-15 [facility] Comment on above: Performed By: #### L 500.2500, L100.0100 ####[facility] [address] [place], [address] GFR/1.73 sq M.predicted among non-blacks MDRD (S/P/Bld) [Vol rate/Area] 85 mL/min/{1.73_m2} Normal >60 [facility] Comment on above: Result Comment: mL/m in/1.73m2 CKD-EPI Creatinine Equation (2020) Performed By: #### L 500.2500, L100.0100 ####[facility] [address] [place], [address] Glucose [Mass/Vol] 90 mg/dL Normal 70-99 [facility] Comment on above: Performed By: #### L 500.2500, L100.0100 ####[facility] [address] [place], [address] Potassium [Moles/Vol] 4.2 mmol/L Normal 3.3-5.1 [facility] Comment on above: Performed By: #### L 500.2500, L100.0100 ####[facility] [address] [place], [address] Sodium [Moles/Vol] 138 mmol/L Normal 133-145 [facility] Comment on above: Performed By: #### L 500.2500, L100.0100 ####[facility] [address] [place], [address] Urea nitrogen [Mass/Vol] 24 mg/dL High 4-19 [facility] Comment on above: Performed By: #### L 500.2500, L100.0100 ####[facility] [address] [place], [address] CBC W/Diff, Automatedon 03- Absolute Lymph 2.98 X10 3/uL Normal 0.83-4.51 [facility] Comment on above: Performed By: #### L 500.2500, L100.0100 ####[facility] [address] [place], [address] Absolute Neut 6.0 X10 3/uL Normal 2.0-7.7 [facility] Comment on above: Performed By: #### L 500.2500, L100.0100 ####[facility] [address] [place], [address] Basophils/100 WBC (Bld) 0.1 % Normal 0-1 [facility] Comment on above: Performed By: #### L 500.2500, L100.0100 ####[facility] [address] [place], [address] Eosinophils/100 WBC (Bld) 1.3 % Normal 0-5 [facility] Comment on above: Performed By: #### L 500.2500, L100.0100 ####[facility] [address] [place], [address] Erythrocyte distribution width (RBC) [Ratio] 12.5 % Normal 11.6-14.6 [facility] Comment on above: Performed By: #### L 500.2500, L100.0100 ####[facility] [address] [place], [address] Hematocrit (Bld) [Volume fraction] 38.8 % Low 40-54 [facility] Comment on above: Performed By: #### L 500.2500, L100.0100 ####[facility] [address] [place], [address] Hemoglobin (Bld) [Mass/Vol] 13.5 g/dL Normal 13.0-16.5 [facility] Comment on above: Performed By: #### L 500.2500, L100.0100 ####[facility] [address] [place], [address] IG% 0.700 Normal 0.0-0.9 [facility] Comment on above: Result Comment: IG% - Immature Granulocytes (promyelocytes, myelocytes andmetamyelocytes) > 1% indicates that a LEFT SHIFT is Present. Performed By: #### L 500.2500, L100.0100 ####[facility] [address] [place], [address] Lymphocytes/100 WBC (Bld) 30.0 % Normal 19-41 [facility] Comment on above: Performed By: #### L 500.2500, L100.0100 ####[facility] [address] [place], [address] MCH (RBC) [Entitic mass] 29.9 pg Normal 27.0-32.0 [facility] [facility] Comment on above: Performed By: #### L 500.2500, L100.0100 ####[facility] [address] [place], [address] MCHC (RBC) [Mass/Vol] 34.8 g/dL Normal 32-36 [facility] Comment on above: Performed By: #### L 500.2500, L100.0100 ####[facility] [address] [place], [address] MCV (RBC) [Entitic vol] 86.0 fL Normal 80-94 [facility] Comment on above: Performed By: #### L 500.2500, L100.0100 ####[facility] [address] [place], [address] Monocytes/100 WBC (Bld) 7.5 % Normal 0-10 [facility] Comment on above: Performed By: #### L 500.2500, L100.0100 ####[facility] [address] [place], [address] Neutrophils/100 WBC (Bld) 60.4 % Normal 47-70 [facility] Comment on above: Performed By: #### L 500.2500, L100.0100 ####[facility] [address] [place], [address] Nucleated RBC (Bld) [#/Vol] 0 10*3/uL Normal 0-5 [facility] Comment on above: Performed By: #### L 500.2500, L100.0100 ####[facility] [address] [place], [address] Platelet mean volume (Bld) [Entitic vol] 8.5 fL Normal 6.2-12.0 [facility] Comment on above: Performed By: #### L 500.2500, L100.0100 ####[facility] [address] [place], [address] Platelets (Bld) [#/Vol] 186 10*3/uL Normal 150-450 [facility] Comment on above: Performed By: #### L 500.2500, L100.0100 ####[facility] [address] [place], [address] RBC (Bld) [#/Vol] 4.51 10*6/uL Low 4.6-6.2 [facility] Comment on above: Performed By: #### L 500.2500, L100.0100 ####[facility] [address] [place], [address] RDW SD 39.1 fl Normal 35.1-43.9 [facility] Comment on above: Performed By: #### L 500.2500, L100.0100 ####[facility] [address] [place], [address] WBC (Bld) [#/Vol] 9.9 10*3/uL Normal 4.4-11.0 [facility] Comment on above: Performed By: #### L 500.2500, L100.0100 ####[facility] [address] [place], [address] 12 Lead EKGon 04-24-2024 12 Lead EKG Normal [facility] Basic Metabolic Profile (BMP )on 04-24-2024 BUN/CRE 25.3 RATIO High 10-20 [facility] Comment on above: Order Comment: pre-o p Performed By: #### L 500.2500, L100.0100 ####[facility] [address] [place], [address] Calcium [Mass/Vol] 8.7 mg/dL Normal 7.6-11.0 [facility] Comment on above: Order Comment: pre-o p Performed By: #### L 500.2500, L100.0100 ####[facility] [address] [place], [address] Chloride [Moles/Vol] 103 mmol/L Normal 98-[address] [facility] Comment on above: Order Comment: pre-o p Performed By: #### L 500.2500, L100.0100 ####[facility] [address] [place], [address] CO2 [Moles/Vol] 26.7 mmol/L Normal 21.0-32.0 [facility] Comment on above: Order Comment: pre-o p Performed By: #### L 500.2500, L100.0100 ####[facility] [address] [place], [address] Creatinine [Mass/Vol] 0.97 mg/dL Normal 0.70-1.20 [facility] Comment on above: Order Comment: pre-o p Performed By: #### L 500.2500, L100.0100 ####[facility] [address] [place], [address] ECRCL 56.80 ml/min Normal 50-250 [facility] Comment on above: Order Comment: pre-o p Performed By: #### L 500.2500, L100.0100 ####[facility] [address] [place], [address] GAP 8 Normal 5-15 [facility] Comment on above: Order Comment: pre-o p Performed By: #### L 500.2500, L100.0100 ####[facility] [address] [place], [address] GFR/1.73 sq M.predicted among non-blacks MDRD (S/P/Bld) [Vol rate/Area] 78 mL/min/{1.73_m2} Normal >60 [facility] Comment on above: Order Comment: pre-o p Result Comment: mL/m in/1.73m2 CKD-EPI Creatinine Equation (2020) Performed By: #### L 500.2500, L100.0100 ####[facility] [address] [place], [address] Glucose [Mass/Vol] 94 mg/dL Normal 70-99 [facility] Comment on above: Order Comment: pre-o p Performed By: #### L 500.2500, L100.0100 ####[facility] [address] [place], [address] Potassium [Moles/Vol] 4.2 mmol/L Normal 3.3-5.1 [facility] Comment on above: Order Comment: pre-o p Performed By: #### L 500.2500, L100.0100 ####[facility] [address] [place], [address] Sodium [Moles/Vol] 138 mmol/L Normal 133-145 [facility] Comment on above: Order Comment: pre-o p Performed By: #### L 500.2500, L100.0100 ####[facility] [address] [place], [address] Urea nitrogen [Mass/Vol] 25 mg/dL High 4-19 [facility] Comment on above: Order Comment: pre-o p Performed By: #### L 500.2500, L100.0100 ####[facility] [address] [place], [address] CBC W/Diff, Automatedon 04-08 Absolute Lymph 3.18 X10 3/uL Normal 0.83-4.51 [facility] Comment on above: Order Comment: Comme nts: pre-op Performed By: #### L 500.2500, L100.0100 ####[facility] [address] [place], [address] Absolute Neut 6.3 X10 3/uL Normal 2.0-7.7 [facility] Comment on above: Order Comment: Comme nts: pre-op Performed By: #### L 500.2500, L100.0100 ####[facility] [address] [place], [address] Basophils/100 WBC (Bld) 0.1 % Normal 0-1 [facility] Comment on above: Order Comment: Comme nts: pre-op Performed By: #### L 500.2500, L100.0100 ####[facility] [address] [place], [address] Eosinophils/100 WBC (Bld) 0.7 % Normal 0-5 [facility] Comment on above: Order Comment: Comme nts: pre-op Performed By: #### L 500.2500, L100.0100 ####[facility] [address] [place], [address] Erythrocyte distribution width (RBC) [Ratio] 12.3 % Normal 11.6-14.6 [facility] Comment on above: Order Comment: Comme nts: pre-op Performed By: #### L 500.2500, L100.0100 ####[facility] [address] [place], [address] Hematocrit (Bld) [Volume fraction] 39.7 % Low 40-54 [facility] Comment on above: Order Comment: Comme nts: pre-op Performed By: #### L 500.2500, L100.0100 ####[facility] [address] [place], [address] Hemoglobin (Bld) [Mass/Vol] 13.6 g/dL Normal 13.0-16.5 [facility] Comment on above: Order Comment: Comme nts: pre-op Performed By: #### L 500.2500, L100.0100 ####[facility] [address] [place], [address] IG% 0.500 Normal 0.0-0.9 [facility] Comment on above: Order Comment: Comme nts: pre-op Result Comment: IG% - Immature Granulocytes (promyelocytes, myelocytes andmetamyelocytes) > 1% indicates that a LEFT SHIFT is Present. Performed By: #### L 500.2500, L100.0100 ####[facility] [address] [place], [address] Lymphocytes/100 WBC (Bld) 30.5 % Normal 19-41 [facility] Comment on above: Order Comment: Comme nts: pre-op Performed By: #### L 500.2500, L100.0100 ####[facility] [address] [place], [address] MCH (RBC) [Entitic mass] 29.8 pg Normal 27.0-32.0 [facility] Comment on above: Order Comment: Comme nts: pre-op Performed By: #### L 500.2500, L100.0100 ####[facility] [address] [place], [address] MCHC (RBC) [Mass/Vol] 34.3 g/dL Normal 32-36 [facility] Comment on above: Order Comment: Comme nts: pre-op Performed By: #### L 500.2500, L100.0100 ####[facility] [address] [place], [address] MCV (RBC) [Entitic vol] 87.1 fL Normal 80-94 [facility] Comment on above: Order Comment: Comme nts: pre-op Performed By: #### L 500.2500, L100.0100 ####[facility] [address] [place], [address] Monocytes/100 WBC (Bld) 7.9 % Normal 0-10 [facility] Comment on above: Order Comment: Comme nts: pre-op Performed By: #### L 500.2500, L100.0100 ####[facility] [address] [place], [address] Neutrophils/100 WBC (Bld) 60.3 % Normal 47-70 [facility] Comment on above: Order Comment: Comme nts: pre-op Performed By: #### L 500.2500, L100.0100 ####[facility] [address] [place], [address] Nucleated RBC (Bld) [#/Vol] 0 10*3/uL Normal 0-5 [facility] Comment on above: Order Comment: Comme nts: pre-op Performed By: #### L 500.2500, L100.0100 ####[facility] [address] [place], [address] Platelet mean volume (Bld) [Entitic vol] 8.5 fL Normal 6.2-12.0 [facility] Comment on above: Order Comment: Comme nts: pre-op Performed By: #### L 500.2500, L100.0100 ####[facility] [address] [place], [address] Platelets (Bld) [#/Vol] 199 10*3/uL Normal 150-450 [facility] Comment on above: Order Comment: Comme nts: pre-op Performed By: #### L 500.2500, L100.0100 ####[facility] [address] [place], [address] RBC (Bld) [#/Vol] 4.56 10*6/uL Low 4.6-6.2 [facility] Comment on above: Order Comment: Comme nts: pre-op Performed By: #### L 500.2500, L100.0100 ####[facility] [address] [place], [address] RDW SD 39.4 fl Normal 35.1-43.9 [facility] Comment on above: Order Comment: Comme nts: pre-op Performed By: #### L 500.2500, L100.0100 ####[facility] [address] [place], [address] WBC (Bld) [#/Vol] 10.4 10*3/uL Normal 4.4-11.0 [facility] Comment on above: Order Comment: Comme nts: pre-op Performed By: #### L 500.2500, L100.0100 ####[facility] [address] [place], [address] Electrocardiogram reportOrde red By: Danette Sargent on 04-24-2024 EKG study [facility] [address] [place] [address] 12 Lead EKG 04/19/24 1131 MR#: [id number] Acct: [id number] Name: YAS ROSA Rep #:[id number] : 1940 83 From: Danette cartagena MD [...] Normal ECG Confirmed by ROSETTA CABELLO, KACEY ([id number]), sports editor LEANDER BRAY ([id number]) on04/24/2024 11:11:40 AM Referred By: KAYLAH Confirmed By: KACEY SARGENT MD 04/24/24 1111 Date _ Danette Sargent MD CC: Dr. Kwabena Menjivar MD; Dr. Laureano Gallagher DO; Dr. Harish Baxter MD ~ Signed [facility] Work Phone: Electrocardiogram reportOrde red By: David Granados on 04-24-2024 EKG study [facility] [address] [place] [address] 12 Lead EKG 04/24/24 0501 MR#: [id number] Acct: [id number] Name: YAS ROSA Rep #:[id number] : 1940 83 From: David Granados MD [...] UNCONFIRMED Confirmed by DARWIN CABELLO, DAVID ([id number]), sports editor LEANDER BRAY ([id number]) on 59:54:30 AM Referred By: Confirmed By: DAVID GRANADOS MD 04/24/24 0954 Date _ David Granados MD CC: Dr. Krish Guevara MD; Dr. Kwabena Menjivar MD; Dr. Harish Baxter MD ~ Signed [facility] Work Phone: Consultation - Orthopedicson 04-21-2024 Consultation - Orthopedics Normal [facility] CBC W/Diff, Automatedon 04-08 Absolute Lymph 2.09 X10 3/uL Normal 0.83-4.51 [facility] Comment on above: Performed By: #### L 100.0100 ####[facility] [address] [place], [address] Absolute Neut 8.7 X10 3/uL High 2.0-7.7 [facility] Comment on above: Performed By: #### L 100.0100 ####[facility] [address] [place], [address] Basophils/100 WBC (Bld) 0.1 % Normal 0-1 [facility] Comment on above: Performed By: #### L 100.0100 ####[facility] [address] [place], [address] Eosinophils/100 WBC (Bld) 0.1 % Normal 0-5 [facility] Comment on above: Performed By: #### L 100.0100 ####[facility] [address] [place], [address] Erythrocyte distribution width (RBC) [Ratio] 12.7 % Normal 11.6-14.6 [facility] Comment on above: Performed By: #### L 100.0100 ####[facility] [address] [place], [address] Hematocrit (Bld) [Volume fraction] 38.5 % Low 40-54 [facility] Comment on above: Performed By: #### L 100.0100 ####[facility] [address] [place], [address] Hemoglobin (Bld) [Mass/Vol] 13.2 g/dL Normal 13.0-16.5 [facility] Comment on above: Performed By: #### L 100.0100 ####[facility] [address] [place], [address] IG% 0.300 Normal 0.0-0.9 [facility] Comment on above: Result Comment: IG% - Immature Granulocytes (promyelocytes, myelocytes andmetamyelocytes) > 1% indicates that a LEFT SHIFT is Present. Performed By: #### L 100.0100 ####[facility] [address] [place], [address] Lymphocytes/100 WBC (Bld) 17.6 % Low 19-41 [facility] Comment on above: Performed By: #### L 100.0100 ####[facility] [address] [place], [address] MCH (RBC) [Entitic mass] 29.5 pg Normal 27.0-32.0 [facility] Comment on above: Performed By: #### L 100.0100 ####[facility] [address] [place], [address] MCHC (RBC) [Mass/Vol] 34.3 g/dL Normal 32-36 [facility] Comment on above: Performed By: #### L 100.0100 ####[facility] [address] [place], [address] MCV (RBC) [Entitic vol] 86.1 fL Normal 80-94 [facility] Comment on above: Performed By: #### L 100.0100 ####[facility] [address] [place], [address] Monocytes/100 WBC (Bld) 8.4 % Normal 0-10 [facility] Comment on above: Performed By: #### L 100.0100 ####[facility] [address] [place], [address] Neutrophils/100 WBC (Bld) 73.5 % High 47-70 [facility] Comment on above: Performed By: #### L 100.0100 ####[facility] [address] [place], [address] Nucleated RBC (Bld) [#/Vol] 0 10*3/uL Normal 0-5 [facility] Comment on above: Performed By: #### L 100.0100 ####[facility] [address] [place], [address] Platelet mean volume (Bld) [Entitic vol] 8.9 fL Normal 6.2-12.0 [facility] Comment on above: Performed By: #### L 100.0100 ####[facility] [address] [place], [address] Platelets (Bld) [#/Vol] 216 10*3/uL Normal 150-450 [facility] Comment on above: Performed By: #### L 100.0100 ####[facility] [address] [place], [address] RBC (Bld) [#/Vol] 4.47 10*6/uL Low 4.6-6.2 [facility] Comment on above: Performed By: #### L 100.0100 ####[facility] [address] [place], [address] RDW SD 39.5 fl Normal 35.1-43.9 [facility] Comment on above: Performed By: #### L 100.0100 ####[facility] [address] [place], [address] WBC (Bld) [#/Vol] 11.9 10*3/uL High 4.4-11.0 [facility] Comment on above: Performed By: #### L 100.0100 ####[facility] [address] [place], [address] Echocardiogram study reportO rdered By: Danette Sargent on 04-20-2024 Study report [facility] [address] [place] [address] Echo Complete 04/19/24 1500 MR#: [id number] Acct: [id number] Name: YAS ROSA Rep #:[id number] : 1940 83 From: Danette cerrato MD [...] Dictated: 04/19/24 1500 Date Transcribed: 04/20/24 132 Nib Inspector: Signed [facility] Work Phone: 12 Lead EKGon 04-19-2024 12 Lead EKG Normal [facility] Absolute neutrophil countOrd ered By: Laureano Gallagher on 04-19-2024 Neutrophils (Bld) [#/Vol] 12.1 10*3/uL High 2.0-7.7 [facility] Activated partial thrombopla stin time (aPTT) in platelet poor plasma by coagulation aOrdered By: Laureano Gallagher on 04-19-2024 aPTT Coag (PPP) [Time] 23.4 s Low 24.1-36.2 [facility] Anion gap in Serum or Plasma Ordered By: Laureano Gallagher on 04-19-2024 Anion gap [Moles/Vol] 17 mmol/L High 5-15 [facility] BUN/creatinine ratioOrdered By: Laureano Gallagher on 04-19-2024 Urea nitrogen/Creatinine [Mass ratio] 21.7 mg/mg High 10- [facility] Basic Metabolic Profile (BMP )on 04-19-2024 BUN/CRE 21.7 RATIO High 11-27 [facility] Comment on above: Performed By: #### L 501.4021, L100.0100, L300.3900, L500.2500, L300.4310 ####[facility] [address] [place], [address] Calcium [Mass/Vol] 9.5 mg/dL Normal 7.6-11.0 [facility] Comment on above: Performed By: #### L 501.4021, L100.0100, L300.3900, L500.2500, L300.4310 ####[facility] [address] [place], [address] Chloride [Moles/Vol] 98 mmol/L Normal 98-[address] [facility] Comment on above: Performed By: #### L 501.4021, L100.0100, L300.3900, L500.2500, L300.4310 ####[facility] [address] [place], [address] CO2 [Moles/Vol] 22.0 mmol/L Normal 21.0-32.0 [facility] Comment on above: Performed By: #### L 501.4021, L100.0100, L300.3900, L500.2500, L300.4310 ####[facility] [address] [place], [address] Creatinine [Mass/Vol] 0.92 mg/dL Normal 0.70-1.20 [facility] Comment on above: Performed By: #### L 501.4021, L100.0100, L300.3900, L500.2500, L300.4310 ####[facility] [address] [place], [address] ECRCL 59.89 ml/min Normal 50-250 [facility] Comment on above: Performed By: #### L 501.4021, L100.0100, L300.3900, L500.2500, L300.4310 ####[facility] [address] [place], [address] GAP 17 High 5-15 [facility] Comment on above: Performed By: #### L 501.4021, L100.0100, L300.3900, L500.2500, L300.4310 ####[facility] [address] [place], [address] GFR/1.73 sq M.predicted among non-blacks MDRD (S/P/Bld) [Vol rate/Area] 83 mL/min/{1.73_m2} Normal >60 [facility] Comment on above: Result Comment: mL/m in/1.73m2 CKD-EPI Creatinine Equation (2020) Performed By: #### L 501.4021, L100.0100, L300.3900, L500.2500, L300.4310 ####[facility] [address] [place], [address] Glucose [Mass/Vol] 152 mg/dL High 70-99 [facility] Comment on above: Performed By: #### L 501.4021, L100.0100, L300.3900, L500.2500, L300.4310 ####[facility] [address] [place], [address] Potassium [Moles/Vol] 3.6 mmol/L Normal 3.3-5.1 [facility] Comment on above: Performed By: #### L 501.4021, L100.0100, L300.3900, L500.2500, L300.4310 ####[facility] [address] [place], [address] Sodium [Moles/Vol] 137 mmol/L Normal 133-145 [facility] Comment on above: Performed By: #### L 501.4021, L100.0100, L300.3900, L500.2500, L300.4310 ####[facility] [address] [place], [address] Urea nitrogen [Mass/Vol] 20 mg/dL High 4-19 [facility] Comment on above: Performed By: #### L 501.4021, L100.0100, L300.3900, L500.2500, L300.4310 ####[facility] [address] [place], [address] Basophil percentageOrdered B y: Laureano Gallagher on 04-19-2024 Basophils/100 WBC (Bld) 0.3 % 0-1 [facility] Bedside Glucoseon 04-19-2024 FINGERSTICK GLU 143 mg/dL High 74-106 [facility] Comment on above: Result Comment: ELIGIO BUSCH OF PATIENT CARE PER NURSING PROTOCOL Performed By: #### L 501.080 ####[facility] [address] [place], [address] Brain without Contraston Brain without Contrast Normal [facility] CBC W/Diff, Automatedon 03-1 2-2025 Absolute Lymph 1.41 X10 3/uL Normal 0.83-4.51 [facility] Comment on above: Performed By: #### L 501.4021, L100.0100, L300.3900, L500.2500, L300.4310 ####[facility] [address] [place], [address] Absolute Neut 12.1 X10 3/uL High 2.0-7.7 [facility] Comment on above: Performed By: #### L 501.4021, L100.0100, L300.3900, L500.2500, L300.4310 ####[facility] [address] [place], [address] Basophils/100 WBC (Bld) 0.3 % Normal 0-1 [facility] Comment on above: Performed By: #### L 501.4021, L100.0100, L300.3900, L500.2500, L300.4310 ####[facility] [address] [place], [address] Eosinophils/100 WBC (Bld) 0.0 % Normal 0-5 [facility] Comment on above: Performed By: #### L 501.4021, L100.0100, L300.3900, L500.2500, L300.4310 ####[facility] [address] [place], [address] Erythrocyte distribution width (RBC) [Ratio] 12.3 % Normal 11.6-14.6 [facility] Comment on above: Performed By: #### L 501.4021, L100.0100, L300.3900, L500.2500, L300.4310 ####[facility] [address] [place], [address] Hematocrit (Bld) [Volume fraction] 45.5 % Normal 40-54 [facility] Comment on above: Performed By: #### L 501.4021, L100.0100, L300.3900, L500.2500, L300.4310 ####[facility] [address] [place], [address] Hemoglobin (Bld) [Mass/Vol] 16.0 g/dL Normal 13.0-16.5 [facility] Comment on above: Performed By: #### L 501.4021, L100.0100, L300.3900, L500.2500, L300.4310 ####[facility] [address] [place], [address] IG% 0.500 Normal 0.0-0.9 [facility] Comment on above: Result Comment: IG% - Immature Granulocytes (promyelocytes, myelocytes andmetamyelocytes) > 1% indicates that a LEFT SHIFT is Present. Performed By: #### L 501.4021, L100.0100, L300.3900, L500.2500, L300.4310 ####[facility] [address] [place], [address] Lymphocytes/100 WBC (Bld) 9.8 % Low 19-41 [facility] Comment on above: Performed By: #### L 501.4021, L100.0100, L300.3900, L500.2500, L300.4310 ####[facility] [address] [place], [address] MCH (RBC) [Entitic mass] 30.0 pg Normal 27.0-32.0 [facility] Comment on above: Performed By: #### L 501.4021, L100.0100, L300.3900, L500.2500, L300.4310 ####[facility] [address] [place], [address] MCHC (RBC) [Mass/Vol] 35.2 g/dL Normal 32-36 [facility] Comment on above: Performed By: #### L 501.4021, L100.0100, L300.3900, L500.2500, L300.4310 ####[facility] [address] [place], [address] MCV (RBC) [Entitic vol] 85.2 fL Normal 80-94 [facility] Comment on above: Performed By: #### L 501.4021, L100.0100, L300.3900, L500.2500, L300.4310 ####[facility] [address] [place], [address] Monocytes/100 WBC (Bld) 5.7 % Normal 0-10 [facility] Comment on above: Performed By: #### L 501.4021, L100.0100, L300.3900, L500.2500, L300.4310 ####[facility] [address] [place], [address] Neutrophils/100 WBC (Bld) 83.7 % High 47-70 [facility] Comment on above: Performed By: #### L 501.4021, L100.0100, L300.3900, L500.2500, L300.4310 ####[facility] [address] [place], [address] Nucleated RBC (Bld) [#/Vol] 0 10*3/uL Normal 0-5 [facility] Comment on above: Performed By: #### L 501.4021, L100.0100, L300.3900, L500.2500, L300.4310 ####[facility] [address] [place], [address] Platelet mean volume (Bld) [Entitic vol] 8.6 fL Normal 6.2-12.0 [facility] Comment on above: Performed By: #### L 501.4021, L100.0100, L300.3900, L500.2500, L300.4310 ####[facility] [address] [place], [address] Platelets (Bld) [#/Vol] 216 10*3/uL Normal 150-450 [facility] Comment on above: Performed By: #### L 501.4021, L100.0100, L300.3900, L500.2500, L300.4310 ####[facility] [address] [place], [address] RBC (Bld) [#/Vol] 5.34 10*6/uL Normal 4.6-6.2 [facility] Comment on above: Performed By: #### L 501.4021, L100.0100, L300.3900, L500.2500, L300.4310 ####[facility] [address] [place], [address] RDW SD 37.7 fl Normal 35.1-43.9 [facility] Comment on above: Performed By: #### L 501.4021, L100.0100, L300.3900, L500.2500, L300.4310 ####[facility] [address] [place], [address] WBC (Bld) [#/Vol] 14.4 10*3/uL High 4.4-11.0 [facility] Comment on above: Performed By: #### L 501.4021, L100.0100, L300.3900, L500.2500, L300.4310 ####[facility] [address] [place], [address] Carbon dioxide, total [Moles /volume] in Central venous bloodOrdered By: Laureano Gallagher on 04-19-2024 CO2 [Moles/Vol] 22.0 mmol/L 21.0-32.0 [facility] Chest 1 Viewon 04-19-2024 Chest 1 View Normal [facility] Chloride assayOrdered By: Donovan Gallagher on 04-19-2024 Chloride [Moles/Vol] 98 mmol/L 98-[address] [facility] Consultation - Surgicalon Consultation - Surgical Normal [facility] Echo Completeon 04-19-2024 Echo Complete Normal [facility] Emergency Department Summary on 04-19-2024 Emergency Department Summary Normal [facility] Eosinophil percentageOrdered By: Laureano Gallagher on 04-19-2024 Eosinophils/100 WBC (Bld) 0.0 % 0-5 [facility] Erythrocyte distribution wid th ratioOrdered By: Laureano Gallagher on 04-19-2024 Erythrocyte distribution width (RBC) [Ratio] 12.3 % 11.6-14.6 [facility] Erythrocyte distribution wid th standard deviationOrdered By: Laureano Gallagher on 04-19-2024 Erythrocyte distribution width (RBC) [Entitic vol] 37.7 fL 35.1-43.9 [facility] Estimation of creatinine yahir aranceOrdered By: Laureano Gallagher on 04-19-2024 Estimated Creatinine Clearance Calc 59.89 ml/min 50-250 [facility] GFR/1.73 sq M.predicted darrick g non-blacks MDRD (S/P/Bld) [Vol rate/Area]Ordered By: Laureano Gallagher on 04-19-2024 Estimated GFR (MDRD) Non-Af Amer 83 >60 [facility] Comment on above: mL/min/1.73m2 CKD-EP I Creatinine Equation (2020) Glucose measurement at bedsi deOrdered By: Laureano Gallagher on 04-19-2024 Bedside Glucose (Misc Panel) 143 mg/dL High 74-106 [facility] Comment on above: MANAGEMENT OF PATIEN T CARE PER NURSING PROTOCOL Glucose [Mass/Vol] 143 mg/dL High 74-106 [facility] H AND P Exam - Hospitaliston 04-19-2024 H&P Exam - Hospitalist Normal [facility] Hematocrit Auto (Bld) [Volum e fraction]Ordered By: Laureano Gallagher on 04-19-2024 Hematocrit (Bld) [Volume fraction] 45.5 % 40-54 [facility] Hemoglobin measurementOrdere d By: Laureano Gallagher on 04-19-2024 Hemoglobin (Bld) [Mass/Vol] 16.0 g/dL 13.0-16.5 [facility] Immature granulocytes/100 WB C Auto (Bld)Ordered By: Laureano Marlowne on 04-19-2024 Immature granulocytes/100 WBC (Bld) 0.500 % 0.0-0.9 [facility] Comment on above: IG% - Immature Granu locytes (promyelocytes, myelocytes and metamyelocytes) > 1% indicates that a LEFT SHIFT is Present. International normalized rat io (INR) calculationOrdered By: Laureano Gallagher on 04-19-2024 INR Coag (Bld) [Relative time] 1.0 {INR} [facility] L499.0042on 04-19-2024 Trop T High Sen 30 ng/L High <=22 [facility] Comment on above: Performed By: #### L 499.0042 ####[facility] [address] [place], [address] Trop T High Sen Normal <=22 [facility] Comment on above: Result Comment: Canc elled via OM: sequence error Performed By: #### L 499.0042 ####[facility] [address] [place], [address] L499.0043on 04-19-2024 Trop T High Sen 35 ng/L High <=22 [facility] Comment on above: Performed By: #### L 499.0043 ####[facility] [address] [place], [address] Trop T High Sen Normal <=22 [facility] Comment on above: Result Comment: PER OM STARTED SERIES OVER ON FLOOR ER DID NOT DRAW SPECIMEN Performed By: #### L 499.0043 ####[facility] [address] [place], [address] L501.4021on 04-19-2024 Trop T High Sen 31 ng/L High <=22 [facility] Comment on above: Performed By: #### L 501.4021 ####[facility] [address] [place], [address] Trop T High Sen 31 ng/L High <=22 [facility] Comment on above: Performed By: #### L 501.4021, L100.0100, L300.3900, L500.2500, L300.4310 ####[facility] [address] [place], [place], [address] Lymphocytes Auto (Unsp spec) [#/Vol]Ordered By: Laureano Gallagher on 04-19-2024 Lymphocytes (Bld) [#/Vol] 1.41 10*3/uL 0.83-4.51 [facility] Lymphocytes/100 WBC Auto (Un sp spec)Ordered By: Laureano Gallagher on 04-19-2024 Lymphocytes/100 WBC (Bld) 9.8 % Low 19-41 [facility] MCV (mean corpuscular volume ) determinationOrdered By: Laureano Gallagher on 04-19-2024 MCV (RBC) [Entitic vol] 85.2 fL 80-94 [facility] Magnetic resonance imaging r eportOrdered By: Yas Mobley on 04-19-2024 Study report [facility] [address] [place], [place] [id number] Spine Cervical (Routine) MR#: [id number] Acct: [id number] Name: YAS ROSA Rep #: [id number] : 1940 M 83 From: Selwyn Mobley DO PCP: Dr. Kwabena Menjivar MD Status: ADM RIINA Study:Spine Cervical (Routine) Date of Exam: 04/19/24 Exam# [id number] Ordering Dr: Keanu Alfred DO PROCEDURE: MRI [...] Menjivar MD; Dr. Keanu Alfred DO ~ Nib Inspector: Signed [facility] Study report [facility] [address] [place], [place] [id number] Brain without Contrast MR#: [id number] Acct: [id number] Name: YAS ROSA Rep #: [id number] : 1940 M 83 From: Selwyn Mobley DO PCP: Dr. Kwabena Menjivar MD Status: ADM IRINA Study:Brain without Contrast Date of Exam: 04/19/24 Exam# [id number] Ordering Dr: Keanu Alfred DO PROCEDURE: MRI [...] Menjivar MD; Dr. Keanu Alfred DO ~ Nib Inspector: Signed [facility] Mean corpuscular hemoglobin (MCH) determinationOrdered By: Laureano Gallagher on 04-19-2024 MCH (RBC) [Entitic mass] 30.0 pg 27.0-32.0 [facility] Mean corpuscular hemoglobin concentration (MCHC) determinationOrdered By: Laureano Gallagher on 04-19-2024 MCHC (RBC) [Mass/Vol] 35.2 g/dL 32-36 [facility] Mean platelet volume determi nationOrdered By: Laureano Gallagher on 04-19-2024 Platelet mean volume (Bld) [Entitic vol] 8.6 fL 6.2-12.0 [facility] Monocyte percentageOrdered B y: Laureano Gallagher on 04-19-2024 Monocytes/100 WBC (Bld) 5.7 % 0-10 [facility] Neutrophil percentageOrdered By: Laureano Gallagher on 04-19-2024 Neutrophils/100 WBC (Bld) 83.7 % High 47-70 [facility] No Panel InformationOrdered By: Keanu Alfred on 03-12-2025 Troponin T High Sensitivity 31 ng/L High <22 [facility] 31 ng/L High <22 [facility] No Panel InformationOrdered By: Laureano Gallagher on 04-19-2024 Troponin T High Sensitivity 31 ng/L High <22 [facility] Nucleated red blood cell per centageOrdered By: Laureano Gallagher on 04-19-2024 Nucleated RBC/100 WBC (Bld) [Ratio] 0 % 0-5 [facility] Partial Thromboplast Timeon 04-19-2024 aPTT Coag (Bld) [Time] 23.4 s Low 24.1-36.2 [facility] Comment on above: Performed By: #### L 501.4021, L100.0100, L300.3900, L500.2500, L300.4310 ####[facility] [address] [place], [address] Platelet countOrdered By: Donovan Gallagher on 04-19-2024 Platelets (Bld) [#/Vol] 216 10*3/uL 150-450 [facility] Potassium (Unsp spec) [Mass/ Vol]Ordered By: Laureano Gallagher on 04-19-2024 Potassium [Moles/Vol] 3.6 mmol/L 3.3-5.1 [facility] Prothrombin Time w/INRon INR Coag (PPP) [Relative time] 1.0 {INR} Normal [facility] Comment on above: Performed By: #### L 501.4021, L100.0100, L300.3900, L500.2500, L300.4310 ####[facility] [address] [place], [address] PT Coag (PPP) [Time] 13.5 s Normal 11.7-14.[address] [facility] Comment on above: Performed By: #### L 501.4021, L100.0100, L300.3900, L500.2500, L300.4310 ####[facility] [address] [place], [address] Prothrombin timeOrdered By: Laureano Gallagher on 04-19-2024 PT Coag (PPP) [Time] 13.5 s 11.7-14.[address] [facility] RBC Auto (Bld) [#/Vol]Ordere d By: Laureano Gallagher on 04-19-2024 RBC (Bld) [#/Vol] 5.34 10*6/uL 4.6-6.2 [facility] STROKE Brain/Head without Co nton 04-19-2024 STROKE Brain/Head without Cont Normal [facility] STROKE CTA Head AND Neck W/C onon 04-19-2024 STROKE CTA Head AND Neck W/Con Normal [facility] Serum creatinine measurement (mass/volume)Ordered By: Laureano Gallagher on 04-19-2024 Creatinine [Mass/Vol] 0.92 mg/dL 0.70-1.20 [facility] Serum glucose measurement (m ass/volume)Ordered By: Laureano Gallagher on 04-19-2024 Glucose [Mass/Vol] 152 mg/dL High 70-99 [facility] Serum or plasma calcium ratna urement (mass/volume)Ordered By: Laureano Gallagher on 04-19-2024 Calcium [Mass/Vol] 9.5 mg/dL 7.6-11.0 [facility] Serum or plasma urea nitroge n measurement (mass/volume)Ordered By: Laureano Gallagher on 04-19-2024 Urea nitrogen [Mass/Vol] 20 mg/dL High 4-19 [facility] Sinus/Facial Boneon 04-20-19 25 Sinus/Facial Bone Normal [facility] Sodium levelOrdered By: Surinder Gallagher on 04-19-2024 Sodium [Moles/Vol] 137 mmol/L 133-145 [facility] Spine Cervical (Routine)on 0 04-19-2024 Spine Cervical (Routine) Normal [facility] Troponin T.cardiac High sens itivity method [Mass/Vol]Ordered By: Keanu Alfred on 04-19-2024 Troponin T High Sensitivity 4 Hour 35 ng/L High <22 [facility] Troponin T High Sensitivity 2 Hour 30 ng/L High <22 [facility] Troponin T.cardiac [Mass/vol ume] in Serum or Plasma by High sensitivity methodOrdered By: Keanu Alfred on 04-19-2024 Troponin T.cardiac High sensitivity method [Mass/Vol] 35 ng/L High <22 [facility] Troponin T.cardiac High sensitivity method [Mass/Vol] 30 ng/L High <22 [facility] White blood cell (WBC) count Ordered By: Laureano Gallagher on 04-19-2024 WBC (Bld) [#/Vol] 14.4 10*3/uL High 4.4-11.0 [facility] aPTT Coag (PPP) [Time]Ordere d By: Laureano Gallagher on 04-19-2024 aPTT Coag (Bld) [Time] 23.4 s Low 24.1-36.2 [facility] Cerv Spine 4 or 5 Viewson Cerv Spine 4 or 5 Views Normal [facility] [place] Brain/Head without Contrasto n 02-26-2024 Brain/Head without Contrast Normal [facility] Emergency Department Summary on 02-26-2024 Emergency Department Summary Normal [facility] Knee 4 or More Viewson 02-25 Knee 4 or More Views Normal [facility] Shoulder min 2 Viewson 02-25 Shoulder min 2 Views Normal [facility] Absolute lymphocyte countOrd ered By: William Menjivar on 10-22-2022 Lymphocytes Auto (Unsp spec) [#/Vol] 2.36 10*3/uL 0.83-4.51 [facility] Basophil percentageOrdered B y: William Menjivar on 10-22-2022 Basophils/100 WBC (Bld) 0.5 % 0-1 [facility] [place] Bilirubin [Mass/Vol] 0.40 mg/dL 0.20-1.[address] [facility] Comment on above: For patients on eltr ombopag therapy, use of Dimension [place] TBIL is not recommended. Chloride [Moles/Vol] 107 mmol/L 98-[address] [facility] Cholesterol [Mass/Vol] 171 mg/dL <200 [facility] Comment on above: <200 mg/dL Desirable 200-240 mg/dL Borderline >240 mg/dL High Risk Eosinophils/100 WBC (Bld) 2.4 % 0-5 [facility] Glucose [Mass/Vol] 94 mg/dL 74-106 [facility] Neutrophils (Bld) [#/Vol] 3.5 10*3/uL 2.0-7.7 [facility] Neutrophils/100 WBC (Bld) 53.3 % 47-70 [facility] Potassium [Moles/Vol] 4.0 mmol/L 3.5-5.1 [facility] Protein [Mass/Vol] 6.8 g/dL 6.4-8.2 [facility] Sodium [Moles/Vol] 138 mmol/L 136-145 [facility] Testosterone [Mass/Vol] 600.99 ng/dL [facility] Comment on above: CENTRAL 90% REFERENC E RANGES MALE AGE <50 197.44 - 669.58 ng/dL MALE AGE > or = 50 187.72 - 684.19 ng/dL FEMALE AGE <50 8.38 - 35.01 ng/dL FEMALE AGE > or = 50 <7.00 - 35.92 ng/dL Effective as of 09/03/20 Triglyceride [Mass/Vol] 144 mg/dL <199 [facility] Comment on above: The drugs N-Acetylcy steine and Metamizole may falsely depress this assay.Serum Triglycerides Reference Interval Normal <150 mg/dL Borderline high 150 - 199 mg/dL High 200 - 499 mg/dL Very High > or = 500 mg/dL WBC (Bld) [#/Vol] 6.6 10*3/uL 4.4-11.0 [facility] Blood erythrocytes count (nu mber/volume)Ordered By: William Menjivar on 10-22-2022 RBC (Bld) [#/Vol] 5.14 10*6/uL 4.6-6.2 [facility] Blood hemoglobin measurement (mass/volume)Ordered By: William Menjivar on 10-22-2022 Hemoglobin (Bld) [Mass/Vol] 15.5 g/dL 13.0-16.5 [facility] Blood lymphocytes/100 leukoc ytesOrdered By: William Menjivar on 10-22-2022 Lymphocytes/100 WBC (Bld) 35.8 % 19-41 [facility] Blood monocytes/100 leukocyt esOrdered By: William Mnejivar on 10-22-2022 Monocytes/100 WBC (Bld) 7.7 % 0-10 [facility] Blood platelet mean volumeOr dered By: William Menjivar on 10-22-2022 Platelet mean volume (Bld) [Entitic vol] 8.8 fL 6.2-12.0 [facility] Determination of erythrocyte mean corpuscular volume (MCV)Ordered By: William Menjivar on 10-22-2022 MCV (RBC) [Entitic vol] 90.1 fL 80-94 [facility] Erythrocyte sedimentation ra teOrdered By: William Menjivar on 10-22-2022 ESR (Bld) [Velocity] 10 mm[facility]h 0-20 [facility] Hematocrit Auto (Bld) [Volum e fraction]Ordered By: William Menjivar on 10-22-2022 Hematocrit (Bld) [Volume fraction] 46.3 % 40-54 [facility] Iron measurement (mass/mass) Ordered By: William Menjivar on 10-22-2022 Iron (Unsp spec) [Mass/Mass] 75 ug/dL 65-175 [facility] Laboratory - Chemistry and C hemistry - challengeOrdered By: William Menjivar on 10-22-2022 ALP [Catalytic activity/Vol] 98 U/L 45-117 [facility] ALT [Catalytic activity/Vol] 28 U/L 16-61 [facility] CO2 [Moles/Vol] 27.0 mmol/L 21.0-32.0 [facility] Cobalamin (Vitamin B12) [Mass/Vol] 266 pg/mL 211-911 [facility] Globulin (S) [Mass/Vol] 3.0 g/dL 2.2-4.2 [facility] Urea nitrogen/Creatinine [Mass ratio] 12.5 mg/mg 10-20 [facility] Laboratory - Hematology and Cell countsOrdered By: William Menjivar on 10-22-2022 Erythrocyte distribution width (RBC) [Entitic vol] 41.8 fL 35.1-43.9 [facility] Erythrocyte distribution width (RBC) [Ratio] 12.5 % 11.6-14.6 [facility] Immature granulocytes/100 WBC (Bld) 0.300 % 0.0-0.9 [facility] Comment on above: IG% - Immature Granu locytes (promyelocytes, myelocytes and metamyelocytes) > 1% indicates that a LEFT SHIFT is Present. MCH (RBC) [Entitic mass] 30.2 pg 27.0-32.0 [facility] Nucleated RBC/100 WBC (Bld) [Ratio] 0 % 0-5 [facility] MCHC Auto (RBC) [Mass/Vol]Or dered By: William Menjivar on 10-22-2022 MCHC (RBC) [Mass/Vol] 33.5 g/dL 32-36 [facility] No Panel InformationOrdered By: William Menjivar on 10-22-2022 Anti-Nuclear Antibody Screen Positive Negative [facility] Comment on above: Performed at: [email or web address] [address] [id number] Director: Nino Del Castillo PhD, Phone: [phone] Estimated GFR (MDRD) Amer 119 mL/min >60 [facility] Comment on above: GFR Calc Estimated GFR (MDRD) Non-Af Amer 99 mL/min >60 [facility] Comment on above: Non- GFR Calc Thyroid Stimulating Hormone (TSH) 1.22 uIU/mL 0.358-3.74 [facility] Vitamin D 25-Hydroxy 28.9 ng/mL [facility] Comment on above: Vitamin D 25(OH) Sta tus Range Deficiency <20 ng/mL (50nmol/L) Insufficiency 20 - 30 ng/mL (50 - 75 nmol/L) Sufficiency 30 - 100 ng/mL (75 - 250 nmol/L) Toxicity >100 ng/mL (>250 nmol/L) Platelets bldOrdered By: Blayne Menjivar on 10-22-2022 Platelets (Bld) [#/Vol] 210 10*3/uL 150-450 [facility] Serum or plasma C reactive p rotein measurement (mass/volume)Ordered By: William Menjivar on 10-22-2022 CRP [Mass/Vol] mg/L 0.0-3.0 [facility] Comment on above: C-Reactive Protein ( CRP) provides useful information for thediagnosis, therapy and monitoring of inflammatory processesand associated diseases. For the evaluation of Relative Riskfor Cardiovascular Disease, a High Sensitivity CRP (HSCRP)should be ordered. Serum or plasma albumin ratna urement (mass/volume)Ordered By: William Menjivar on 10-22-2022 Albumin [Mass/Vol] 3.8 g/dL 3.2-5.0 [facility] Serum or plasma albumin/glob ulin mass ratioOrdered By: William Menjivar on 10-22-2022 Albumin/Globulin [Mass ratio] 1.3 {ratio} 0.9-2.4 [facility] Serum or plasma calcium ratna urement (mass/volume)Ordered By: William Menjivar on 10-22-2022 Calcium [Mass/Vol] 8.8 mg/dL 8.5-10.1 [facility] Serum or plasma cholesterol in HDL measurement (mass/volume)Ordered By: William Menjivar on 10-22-2022 Cholesterol in HDL [Mass/Vol] 52 mg/dL >40 [facility] Comment on above: The drugs N-Acetylcy steine and Metamizole may falsely depress this assay. Reference Range HDL <40 mg/dL Low HDL Cholesterol HDL >or= 60 mg/dL High HDL Cholesterol Serum or plasma cholesterol in VLDL measurement (mass/volume)Ordered By: William Menjivar on 10-22-2022 Cholesterol in VLDL [Mass/Vol] 29 mg/dL 5-40 [facility] Serum or plasma creatinine m easurement (mass/volume)Ordered By: William Menjivar on 10-22-2022 Creatinine [Mass/Vol] 0.80 mg/dL 0.70-1.30 [facility] Comment on above: The validity of the calculated GFR & GFRAA in patients over 70 years has not been determined. Clinical correlation is essential. Serum or plasma ferritin darline surement (mass/volume)Ordered By: William Menjivar on 10-22-2022 Ferritin [Mass/Vol] 168 ng/mL 26-388 [facility] Serum or plasma low density lipoprotein (LDL) cholesterol measurement (mass/volume)Ordered By: William Menjivar on 10-22-2022 Cholesterol in LDL [Mass/Vol] 90 mg/dL 0-130 [facility] Serum or plasma urea nitroge n measurement (mass/volume)Ordered By: William Menjivar on 10-22-2022 Urea nitrogen [Mass/Vol] 10 mg/dL 7-18 [facility] Serum rheumatoid factor dete ctionOrdered By: William Menjivar on 10-22-2022 Rheumatoid factor Ql (S) < 10.0 IU/mL <15 [facility] Thin prep Papanicolaou smear with manual screeningOrdered By: William Menjivar on 10-22-2022 Thin prep Papanicolaou smear with manual screening 20 U/L 15-37 [facility] Thin prep Papanicolaou smear with manual screening 4 5-15 [facility] Emergency Room Note on 09-18-2016 [facility] Note Normal [facility] ([place]) .Auto Diffon 09-15-2016 Basophils Auto #/vol (Bld) 0.10 10 3/mcL Normal 0.00-0.19 [facility] ([place]) Comment on above: Performed By: #### C BC, ADIFF, ANEU, TROP, GFR, CMP ####M[address] [place], [place] [address] Basophils/100 WBC Auto (Bld) 0.7 % Normal 0.0-2.5 [facility] ([place]) Comment on above: Performed By: #### C BC, ADIFF, ANEU, TROP, GFR, CMP ####[address] [place], [place] [address] Eosinophils 0.00 10 3/mcL Normal 0.00-0.40 [facility] ([place]) Comment on above: Performed By: #### C BC, ADIFF, ANEU, TROP, GFR, CMP ####M[address] [place], [place] [address] Eosinophils/100 leukocytes 0.5 % Normal 0.0-7.0 [facility] ([place]) Comment on above: Performed By: #### C BC, ADIFF, ANEU, TROP, GFR, CMP ####Macy [address] [place], [place] [address] Lymphocytes 1.90 10 3/mcL Normal 0.77-3.85 [facility] ([place]) Comment on above: Performed By: #### C BC, ADIFF, ANEU, TROP, GFR, CMP ####Macy [address] [place], [place] [address] Lymphocytes/100 leukocytes 21.5 % Normal 10.0-50.0 [facility] ([place]) Comment on above: Performed By: #### C BC, ADIFF, ANEU, TROP, GFR, CMP ####Macy [address] [place], [place] [address] Monocytes 0.70 10 3/mcL Normal 0.15-1.00 [facility] ([place]) Comment on above: Performed By: #### C BC, ADIFF, ANEU, TROP, GFR, CMP ####Macy [address] [place], [place] [address] Monocytes/100 leukocytes 7.5 % Normal 1.7-13.0 [facility] ([place]) Comment on above: Performed By: #### C BC, ADIFF, ANEU, TROP, GFR, CMP ####[address] [place], [place] [address] Neutrophils/100 WBC Auto (Bld) 69.8 % Normal 37.0-80.0 [facility] ([place]) Comment on above: Performed By: #### C BC, ADIFF, ANEU, TROP, GFR, CMP ####[address] [place], [place] [address] .NEUABSon 09-15-2016 Neutrophils 6.30 10 3/mcL High 2.85-6.16 [facility] ([place]) Comment on above: Performed By: #### C BC, ADIFF, ANEU, TROP, GFR, CMP ####Macy [address] [place], [place] [address] CBCon 09-15-2016 Erythrocyte distribution width Auto Ratio (RBC) 13.0 % Normal 11.5-14.5 [facility] ([place]) Comment on above: Performed By: #### C BC, ADIFF, ANEU, TROP, GFR, CMP ####[address] [place], [place] [address] Erythrocytes (RBC) 5.10 10 6/mcL Normal 4.04-6.13 [facility] ([place]) Comment on above: Performed By: #### C BC, ADIFF, ANEU, TROP, GFR, CMP ####Macy [address] [place], [place] [address] Hematocrit (HCT) 43.6 % Normal 42.0-52.0 [facility] ([place]) Comment on above: Performed By: #### C BC, ADIFF, ANEU, TROP, GFR, CMP ####Macy [address] [place], [place] [address] Hemoglobin mass conc (Bld) 14.9 G/dL Normal 14.0-18.0 [facility] ([place]) Comment on above: Performed By: #### C BC, ADIFF, ANEU, TROP, GFR, CMP ####Macy [address] [place] [address] MCH 29.1 pg Normal 27.0-31.2 [facility] ([place]) Comment on above: Performed By: #### C BC, ADIFF, ANEU, TROP, GFR, CMP ####Macy [address] [place], [place] [address] MCHC mass conc (RBC) 34.1 G/dL Normal 31.8-35.4 [facility] ([place]) Comment on above: Performed By: #### C BC, ADIFF, ANEU, TROP, GFR, CMP ####Macy [id number] [place], [place] [address] MCV 85.5 fL Normal 80.0-94.0 [facility] ([place]) Comment on above: Performed By: #### C BC, ADIFF, ANEU, TROP, GFR, CMP ####Macy [address] [place], [place] [address] Platelet mean volume (PMV) 6.7 fL Low 7.4-10.4 [facility] ([place]) Comment on above: Performed By: #### C BC, ADIFF, ANEU, TROP, GFR, CMP ####Macy [address] [place], [place] [address] Platelets 207 10 3/mcL Normal 130-400 [facility] ([place]) Comment on above: Performed By: #### C BC, ADIFF, ANEU, TROP, GFR, CMP ####Macy [address] [place], [place] [address] WBC (Leukocytes) 9.00 10 3/mcL Normal 4.60-10.80 [facility] ([place]) Comment on above: Performed By: #### C BC, ADIFF, ANEU, TROP, GFR, CMP ####Macy [id number] [place], [place] [address] CMPon 09-15-2016 BUN/Creatinine Ratio 11 ratio Normal 7-27 [facility] ([place]) Comment on above: Performed By: #### C BC, ADIFF, ANEU, TROP, GFR, CMP ####Macy [address] [place], [place] [address] Creatinine 1.1 mg/dL Normal 0.6-1.2 [facility] ([place]) Comment on above: Performed By: #### C BC, ADIFF, ANEU, TROP, GFR, CMP ####Macy [address] [place], [place] [address] Alanine aminotransferase (ALT) 13 ZZ Normal 10-35 [facility] ([place]) Comment on above: Performed By: #### C BC, ADIFF, ANEU, TROP, GFR, CMP ####[address]acyautunm [address] [place], [place] [address] Albumin 4.6 G/dL Normal 3.4-4.8 [facility] ([place]) Comment on above: Performed By: #### C BC, ADIFF, ANEU, TROP, GFR, CMP ####Macy [address] [place], [place] [address] Albumin/Globulin Ratio 1.8 {ratio} Normal 1.1-2.5 [facility] ([place]) Comment on above: Performed By: #### C BC, ADIFF, ANEU, TROP, GFR, CMP ####[address] [place], [place] [address] Alk Phos 80 ZZ Normal 40-135 [facility] ([place]) Comment on above: Performed By: #### C BC, ADIFF, ANEU, TROP, GFR, CMP ####[address] [place], [place] [address] Aspartate aminotransferase (AST) 14 ZZ Normal 10-40 [facility] ([place]) Comment on above: Performed By: #### C BC, ADIFF, ANEU, TROP, GFR, CMP ####[address] [place], [place] [address] Bili Total 0.7 mg/dL Normal 0.2-1.0 [facility] ([place]) Comment on above: Performed By: #### C BC, ADIFF, ANEU, TROP, GFR, CMP ####[address] [place], [place] [address] Calcium 9.3 mg/dL Normal 8.4-10.2 [facility] ([place]) Comment on above: Performed By: #### C BC, ADIFF, ANEU, TROP, GFR, CMP ####[address] [place], [place] [address] CO2 23 mmol/L Normal 23-31 [facility] ([place]) Comment on above: Performed By: #### C BC, ADIFF, ANEU, TROP, GFR, CMP ####Macy [address] [place], [place] [address] Electrolyte Balance 10.0 mEq/L Normal [facility] ([place]) Comment on above: Performed By: #### C BC, ADIFF, ANEU, TROP, GFR, CMP ####[address] [place], [place] [address] Globulin 2.5 G/dL Normal [facility] ([place]) Comment on above: Performed By: #### C BC, ADIFF, ANEU, TROP, GFR, CMP ####[address] [place], [place] [address] Glucose mass conc 104 mg/dL Normal 83-110 [facility] ([place]) Comment on above: Performed By: #### C BC, ADIFF, ANEU, TROP, GFR, CMP ####[address] [place], [place] [address] Protein 7.1 G/dL Normal 6.0-8.3 [facility] ([place]) Comment on above: Performed By: #### C BC, ADIFF, ANEU, TROP, GFR, CMP ####[address] [place], [place] [address] Urea nitrogen 12.6 mg/dL Normal 7.0-18.0 [facility] ([place]) Comment on above: Performed By: #### C BC, ADIFF, ANEU, TROP, GFR, CMP ####[address] [place], [place] [address] Chloride 102 mmol/L Normal 98-107 [facility] ([place]) Comment on above: Performed By: #### C BC, ADIFF, ANEU, TROP, GFR, CMP ####[address] [place], [place] [address] Potassium molar conc 4.1 mmol/L Normal 3.5-5.1 [facility] ([place]) Comment on above: Performed By: #### C BC, ADIFF, ANEU, TROP, GFR, CMP ####[address] [place], [place] [address] Sodium 135 mmol/L Low 136-146 [facility] ([place]) Comment on above: Performed By: #### C BC, ADIFF, ANEU, TROP, GFR, CMP ####Macy [address] [place], [place] [address] CT ABD/PELVIS W/ IV CONTRAST ONLYon 09-15-2016 [...] AM Sign Date: 09/15/2016 12:20:36 AM Normal [facility] ([place]) GFRon 09-15-2016 eGFR (non-black) 79 ml/min/1.73sqm Normal [facility] ([place]) Comment on above: Result Comment: GFR Population [...] C BC, ADIFF, ANEU, TROP, GFR, CMP ####[facility] [place] [phone] eGFR (non-black) mL/min/{1.73_m2} Normal [facility] ([place]) Comment on above: Result Comment: GFR Population [...] ADIFF, ANEU, TROP, GFR, CMP ####Macy [address] [place], [place] [address] LIPon 09-15-2016 Lipase Level 26 ZZ Normal 8-78 [facility] ([place]) Comment on above: Performed By: #### C BC, ADIFF, ANEU, TROP, GFR, CMP ####Macy [address] [place], [place] [address] [facility] Note on 09-15-2016 [facility] Note Normal [facility] ([place]) Patient Summary Documentson 09-15-2016 Patient Summary Documents Normal [facility]) .Auto Diffon 09-12-2016 Basophils Auto #/vol (Bld) 0.00 10 3/mcL Normal 0.00-0.19 [facility] ([place]) Comment on above: Performed By: #### C BC, ADIFF, ANEU, TROP, GFR, CMP ####[address] [place], [place] [address] Basophils/100 WBC Auto (Bld) 0.5 % Normal 0.0-2.5 [facility] ([place]) Comment on above: Performed By: #### C BC, ADIFF, ANEU, TROP, GFR, CMP ####[address] [place], [place] [address] Eosinophils 0.00 10 3/mcL Normal 0.00-0.40 [facility] ([place]) Comment on above: Performed By: #### C BC, ADIFF, ANEU, TROP, GFR, CMP ####[address] [place], [place] [address] Eosinophils/100 leukocytes 0.4 % Normal 0.0-7.0 [facility] ([place]) Comment on above: Performed By: #### C BC, ADIFF, ANEU, TROP, GFR, CMP ####[address] [place], [place] [address] Lymphocytes 2.50 10 3/mcL Normal 0.77-3.85 [facility] ([place]) Comment on above: Performed By: #### C BC, ADIFF, ANEU, TROP, GFR, CMP ####Macy [address] [place], [place] [address] Lymphocytes/100 leukocytes 28.8 % Normal 10.0-50.0 [facility] ([place]) Comment on above: Performed By: #### C BC, ADIFF, ANEU, TROP, GFR, CMP ####[address] [place], [place] [address] Monocytes 0.80 10 3/mcL Normal 0.15-1.00 [facility] ([place]) Comment on above: Performed By: #### C BC, ADIFF, ANEU, TROP, GFR, CMP ####Macy [address] [place], [place] [address] Monocytes/100 leukocytes 9.2 % Normal 1.7-13.0 [facility] ([place]) Comment on above: Performed By: #### C BC, ADIFF, ANEU, TROP, GFR, CMP ####Macy [address] [place], [place] [address] Neutrophils/100 WBC Auto (Bld) 61.1 % Normal 37.0-80.0 [facility] ([place]) Comment on above: Performed By: #### C BC, ADIFF, ANEU, TROP, GFR, CMP ####[address] [place], [place] [address] .NEUABSon 09-12-2016 Neutrophils 5.30 10 3/mcL Normal 2.85-6.16 [facility] ([place]) Comment on above: Performed By: #### C BC, ADIFF, ANEU, TROP, GFR, CMP ####[address] [place], [place] [address] .Urinalysis Microscopic (AO) on 09-12-2016 UA Squam Epithelial 0-5 Abnormal None Seen [facility] ([place]) Comment on above: Performed By: #### U A, UAMICAO ####[address] [place], [place] [address] UA WBC None Seen Normal None Seen [facility] ([place]) Comment on above: Performed By: #### Екатерина Valladares UAMICAO ####[address] [place], [place] [address] Urine, erythrocytes None Seen Normal None Seen [facility] ([place]) Comment on above: Performed By: #### Екатерина Valladares UAMICAO ####[address] [place], [place] [address] CBCon 09-12-2016 Erythrocyte distribution width Auto Ratio (RBC) 12.9 % Normal 11.5-14.5 [facility] ([place]) Comment on above: Performed By: #### C BC, ADIFF, ANEU, TROP, GFR, CMP ####Macy [address] [place], [place] [address] Erythrocytes (RBC) 4.97 10 6/mcL Normal 4.04-6.13 [facility] ([place]) Comment on above: Performed By: #### C BC, ADIFF, ANEU, TROP, GFR, CMP ####[address] [place] [phone] Hematocrit (HCT) 42.2 % Normal 42.0-52.0 [facility] ([place]) Comment on above: Performed By: #### C BC, ADIFF, ANEU, TROP, GFR, CMP ####Macy [address] [place], [place] [address] Hemoglobin mass conc (Bld) 14.5 G/dL Normal 14.0-18.0 [facility] ([place]) Comment on above: Performed By: #### C BC, ADIFF, ANEU, TROP, GFR, CMP ####[address] [place], [place] [address] MCH 29.3 pg Normal 27.0-31.2 [facility] ([place]) Comment on above: Performed By: #### C BC, ADIFF, ANEU, TROP, GFR, CMP ####[address] [place], [place] [address] MCHC mass conc (RBC) 34.4 G/dL Normal 31.8-35.4 [facility] ([place]) Comment on above: Performed By: #### C BC, ADIFF, ANEU, TROP, GFR, CMP ####Macy [address] [place], [place] [address] MCV 85.0 fL Normal 80.0-94.0 [facility] ([place]) Comment on above: Performed By: #### C BC, ADIFF, ANEU, TROP, GFR, CMP ####Macy [address] [place], [place] [address] Platelet mean volume (PMV) 6.8 fL Low 7.4-10.4 [facility] ([place]) Comment on above: Performed By: #### C BC, ADIFF, ANEU, TROP, GFR, CMP ####Macy [address] [place], [place] [address] Platelets 196 10 3/mcL Normal 130-400 [facility] ([place]) Comment on above: Performed By: #### C BC, ADIFF, ANEU, TROP, GFR, CMP ####Isabella [address] [place], [place] [address] WBC (Leukocytes) 8.70 10 3/mcL Normal 4.60-10.80 [facility] ([place]) Comment on above: Performed By: #### C BC, ADIFF, ANEU, TROP, GFR, CMP ####[address]acy [address] [place], [place] [address] CMPon 09-12-2016 Aspartate aminotransferase (AST) 15 ZZ Normal 10-40 [facility] ([place]) Comment on above: Performed By: #### C BC, ADIFF, ANEU, TROP, GFR, CMP ####Macy [address] [place], [place] [address] Alanine aminotransferase (ALT) 14 ZZ Normal 10-35 [facility] ([place]) Comment on above: Performed By: #### C BC, ADIFF, ANEU, TROP, GFR, CMP ####Macy [address] [place], [place] [address] Alk Phos 74 ZZ Normal 40-135 [facility] ([place]) Comment on above: Performed By: #### C BC, ADIFF, ANEU, TROP, GFR, CMP ####[address] [place] [address] Glucose mass conc 96 mg/dL Normal 83-110 [facility] ([place]) Comment on above: Performed By: #### C BC, ADIFF, ANEU, TROP, GFR, CMP ####[address]acyautumn [address] [place], [place] [address] Albumin/Globulin Ratio 1.9 {ratio} Normal 1.1-2.5 [facility] ([place]) Comment on above: Performed By: #### C BC, ADIFF, ANEU, TROP, GFR, CMP ####[address] [place], [place] [address] Globulin 2.3 G/dL Normal [facility] ([place]) Comment on above: Performed By: #### C BC, ADIFF, ANEU, TROP, GFR, CMP ####Macy [address] [place], [place] [address] Protein 6.6 G/dL Normal 6.0-8.3 [facility] ([place]) Comment on above: Performed By: #### C BC, ADIFF, ANEU, TROP, GFR, CMP ####M[address] [place], [place] [address] Chloride 101 mmol/L Normal 98-107 [facility] ([place]) Comment on above: Performed By: #### C BC, ADIFF, ANEU, TROP, GFR, CMP ####[address] [place], [place] [address] Electrolyte Balance 11.0 mEq/L Normal [facility] ([place]) Comment on above: Performed By: #### C BC, ADIFF, ANEU, TROP, GFR, CMP ####M[address] [place], [place] [address] Potassium molar conc 4.2 mmol/L Normal 3.5-5.1 [facility] ([place]) Comment on above: Performed By: #### C BC, ADIFF, ANEU, TROP, GFR, CMP ####[address] [place], [place] [address] Sodium 135 mmol/L Low 136-146 [facility] ([place]) Comment on above: Performed By: #### C BC, ADIFF, ANEU, TROP, GFR, CMP ####Macy [address] [place], [place] [address] Bili Total 0.8 mg/dL Normal 0.2-1.0 [facility] ([place]) Comment on above: Performed By: #### C BC, ADIFF, ANEU, TROP, GFR, CMP ####Macy [address] [place] [address] BUN/Creatinine Ratio 14 ratio Normal 7-27 [facility] ([place]) Comment on above: Performed By: #### C BC, ADIFF, ANEU, TROP, GFR, CMP ####Macy [address] [place] [address] Calcium 8.9 mg/dL Normal 8.4-10.2 [facility] ([place]) Comment on above: Performed By: #### C BC, ADIFF, ANEU, TROP, GFR, CMP ####Isabella [address] [place] [address] CO2 23 mmol/L Normal 23-31 [facility] ([place]) Comment on above: Performed By: #### C BC, ADIFF, ANEU, TROP, GFR, CMP ####Isabella [address] [place] [address] Creatinine 1.0 mg/dL Normal 0.6-1.2 [facility] ([place]) Comment on above: Performed By: #### C BC, ADIFF, ANEU, TROP, GFR, CMP ####Isabella [address] [place] [phone] Albumin 4.3 G/dL Normal 3.4-4.8 [facility] ([place]) Comment on above: Performed By: #### C BC, ADIFF, ANEU, TROP, GFR, CMP ####Isabella [address] [place] [address] Urea nitrogen 13.9 mg/dL Normal 7.0-18.0 [facility] ([place]) Comment on above: Performed By: #### C BC, ADIFF, ANEU, TROP, GFR, CMP ####Isabella [address] [place] [address] [address] HEAD OR BRAIN W/O CONTRAS Ton [...] PM Sign Date: 09/12/2016 5:53:51 PM Normal [facility] ([place]) GFRon 09-12-2016 eGFR (non-black) mL/min/{1.73_m2} Normal [facility] ([place]) Comment on above: Result Comment: GFR Population [...] BC, ADIFF, ANEU, TROP, GFR, CMP ####Macy [address] [place], [place] [address] eGFR (non-black) 91 ml/min/1.73sqm Normal [facility] ([place]) Comment on above: Result Comment: GFR Population [...] ADIFF, ANEU, TROP, GFR, CMP ####Macy [address] [place], [place] [address] Patient Summary Documentson 09-12-2016 Patient Summary Documents Normal [facility] ([place]) TROPon 09-12-2016 Troponin I.cardiac mass conc ng/mL Normal 0.00-0.30 [facility] ([place]) Comment on above: Result Comment: Belo w [...] ADIFF, ANEU, TROP, GFR, CMP ####Macy [address] [place], [place] [address] UAon 09-12-2016 UA Appear CLEAR Normal [facility] ([place]) Comment on above: Performed By: #### U A, UAMICAO ####Macy [address] [place], [place] [address] UA Blood Negative Normal [facility] ([place]) Comment on above: Performed By: #### U A, UAMICAO ####Macy [address] [place], [place] [address] UA Leuk Est Negative [facility] ([place]) Comment on above: Performed By: #### U A, UAMICAO ####Macy [address] [place], [place] [address] UA Nitrite Negative [facility] ([place]) Comment on above: Performed By: #### U A, UAMICAO ####Macy [address] [place], [place] [address] UA pH 5.5 [facility]) Comment on above: Performed By: #### U A, UAMICAO ####Macy [address] [place], [place] [address] UA Protein Negative [facility]) Comment on above: Performed By: #### U A, UAMICAO ####Macy [address] [place] [address] UA Spec Grav 1.020 [facility]) Comment on above: Performed By: #### U A, UAMICAO ####Macy [address] [place] [address] UA Specimen Type Clean Catch [facility] ([place]) Comment on above: Performed By: #### U A, UAMICAO ####Macy [address] [place] [address] UA Urobilinogen 0.2 E.U./dL [facility] ([place]) Comment on above: Performed By: #### U A, UAMICAO ####Macy [address] [place] [address] Urine, color YELLOW [facility] ([place]) Comment on above: Performed By: #### U A, UAMICAO ####Macy [address] [place] [address] Urine, glucose Negative [facility] ([place]) Comment on above: Performed By: #### U A, UAMICAO ####Macy [address] [place] [address] Urine, ketones presence 40 mg/dL Abnormal Negative [facility] ([place]) Comment on above: Performed By: #### U A, UAMICAO ####Macy [address] [place], [place] [address] Urine, urobilinogen Negative Normal [facility] ([place]) Comment on above: Performed By: #### U TACO Valladares ####Macy [address] [place], [place] [address] XR CHEST 1 VIEWon 09-12-2016 XR CHEST [...] PM Sign Date: 09/12/2016 5:55:03 PM Normal [facility] ([place]) Vital Signs Date Time Vital Sign Value Performing Clinician Bami luz 07-27-2024 17:38-0400 Body height 172.[address] Kwabena Menjivar MD Work Phone: [facility] 05-25-2024 13:01-0400 Body height 172.[address] Kwabena Menjivar MD Work Phone: [facility] 05-25-2024 13:01-0400 Body mass index (BMI) [Ratio] 23.1 kg/m2 Dr. Kwabena Menjivar MD Work Phone: [facility] 05-25-2024 13:01-0400 Body weight 68.[address] Kwabena Menjivar MD Work Phone: [facility] 05-25-2024 13:01-0400 Diastolic blood pressure 52 mm[Hg] Dr. Kwabena Menjivar MD Work Phone: [facility] 05-25-2024 13:01-0400 Heart rate 73 /min Dr. Kwabena Menjivar MD Work Phone: [facility] 05-25-2024 13:01-0400 Respiratory rate 16 /min Dr. Kwabena Menjivar MD Work Phone: [facility] 05-25-2024 13:01-0400 SaO2% (BldA) [Mass fraction] 96 % Dr. Kwabena Menjivar MD Work Phone: [facility] 05-25-2024 13:01-0400 Systolic blood pressure 82 mm[Hg] Dr. Kwabena Menjivar MD Work Phone: [phone] [place] [address] 05-20-2024 09:20-0400 Diastolic blood pressure 67 mm[Hg] Dr. Kwabena Menjivar MD Work Phone: [phone] [place] [address] 05-20-2024 09:20-0400 Heart rate 59 /min Dr. Kwabena Menjivar MD Work Phone: [phone] [place] [address] 05-20-2024 09:20-0400 Systolic blood pressure 136 mm[Hg] Dr. Kwabena Menjivar MD Work Phone: [phone] [address] 05-20-2024 06:00-0400 Body mass index (BMI) [Ratio] 24.3 kg/m2 Dr. Kwabena Menjivar MD Work Phone: [phone] [place] [address] 05-20-2024 06:00-0400 Body temperature 97.2 [degF] Dr. Kwabena Menjivar MD Work Phone: [facility] 05-20-2024 06:00-0400 Body weight [address] Kwabena Menjivar MD Work Phone: [facility] 05-20-2024 06:00-0400 Respiratory rate 16 /min Dr. Kwabena Menjivar MD Work Phone: [facility] 05-20-2024 06:00-0400 SaO2% (BldA) [Mass fraction] 97 % Dr. Kwabena Menjivar MD Work Phone: [phone] [place] [address] 05-12-2024 08:43-0400 Body height [address] Kwabena Menjivar MD Work Phone: [facility] 04-27-2024 14:23-0400 Body temperature 97.8 [degF] Dr. Kwabena Menjivar MD Work Phone: [facility] 04-27-2024 14:23-0400 Diastolic blood pressure 64 mm[Hg] Dr. Kwabena Menjivar MD Work Phone: [facility] 04-27-2024 14:23-0400 Heart rate 65 /min Dr. Kwabena Menjivar MD Work Phone: 9(325)729-095954 [place] [address] 04-27-2024 14:23-0400 Respiratory rate 18 /min Dr. Kwabena Menjivar MD Work Phone: 9(281)[phone] [place] [address] 04-27-2024 14:23-0400 SaO2% (BldA) [Mass fraction] 92 % Dr. Kwabena Menjivar MD Work Phone: [facility] 04-27-2024 14:23-0400 Systolic blood pressure 126 mm[Hg] Dr. Kwabena Menjivar MD Work Phone: [facility] 04-26-2024 18:24-0400 Inhaled oxygen flow rate 3 L/min Dr. Kwabena Menjivar MD Work Phone: 4(636)[phone] [place] [address] 04-26-2024 15:54-0400 Body height 172.[address] Kwabena Menjivar MD Work Phone: [facility] 04-26-2024 15:54-0400 Body mass index (BMI) [Ratio] 25.3 kg/m2 Dr. Kwabena Menjivar MD Work Phone: [facility] 04-26-2024 15:54-0400 Body weight 75.[address] Kwabena Menjivar MD Work Phone: [facility] 04-19-2024 13:05-0400 Body temperature 97.8 [degF] Dr. Kwabena Menjivar MD Work Phone: [facility] 04-19-2024 13:05-0400 Diastolic blood pressure 75 mm[Hg] Dr. Kwabena Menjivar MD Work Phone: [facility] 04-19-2024 13:05-0400 Heart rate 65 /min Dr. Kwabena Menjivar MD Work Phone: 4(258)772-061739 [address] 04-19-2024 13:05-0400 Respiratory rate 16 /min Dr. Kwabena Menjivar MD Work Phone: 6(562)[phone] [address] 04-19-2024 13:05-0400 SaO2% (BldA) [Mass fraction] 99 % Dr. Kwabena Menjivar MD Work Phone: 3(211)552-505471 [place] [address] 04-19-2024 13:05-0400 Systolic blood pressure 133 mm[Hg] Dr. Kwabena Menjivar MD Work Phone: 8(113)770-416454 [place] [address] 04-19-2024 10:47-0400 Body height 172.[address] Kwabena Menjivar MD Work Phone: 3(466)[phone] [address] 04-19-2024 10:47-0400 Body mass index (BMI) [Ratio] 23.9 kg/m2 Dr. Kwabena Menjivar MD Work Phone: 6(069)232-735539 [address] 04-19-2024 10:47-0400 Body weight 71.[address] Kwabena Menjivar MD Work Phone: 6(435)518-635239 [address] 02-26-2024 12:31-0500 Body temperature 98.6 [degF] Dr. Kwabena Menjivar MD Work Phone: 3(537)678-295839 [address] 02-26-2024 12:31-0500 Diastolic blood pressure 85 mm[Hg] Dr. Kwabena Menjivar MD Work Phone: 6(534)046-765939 [address] 02-26-2024 12:31-0500 Heart rate 62 /min Dr. Kwabena Menjivar MD Work Phone: 8(574)465-603239 [address] 02-26-2024 12:31-0500 Respiratory rate 16 /min Dr. Kwabena Menjivar MD Work Phone: [facility] 02-26-2024 12:31-0500 SaO2% (BldA) [Mass fraction] 99 % Dr. Kwabena Menjivar MD Work Phone: [facility] 02-26-2024 12:31-0500 Systolic blood pressure 164 mm[Hg] Dr. Kwabena Menjivar MD Work Phone: [facility] 02-26-2024 09:48-0500 Body mass index (BMI) [Ratio] 25.8 kg/m2 Dr. Kwabena Menijvar MD Work Phone: [facility] 02-26-2024 09:48-0500 Body weight 77.[address] Kwabena Menjivar MD Work Phone: [facility] Encounters Encounter Date Encounter Type Care Provider Facility Start: 08-03-2024 End: 08-03-2024 Dr. David Granados MD -[facility] Start: 08-03-2024 End: 08-03-[address] Kwabena Menjivar MD Work Phone: [facility] Work Phone: Start: 07-20-2024 End: 07-20-[address] Kwabena Menjivar MD Work Phone: [facility] Work Phone: Start: 07-20-2024 End: 07-20-2024 Dr. Kwabena Menjivar MD -Laboratory [facility] Start: 07-20-2024 End: 07-20-2024 ambulatory Kwabena Menjivar Facility:[facility] Start: 07-11-2024 ambulatory Kwabena Fuller lity:[facility] Start: 07-11-2024 Keven Nuno Start: 07-04-2024 ambulatory Kwabena Fuller lity:[facility] Start: 07-04-2024 Keven Nuno Start: 06-27-2024 ambulatory Sonia Hickman ty:[facility] Start: 06-26-2024 ambulatory Kwabena Fuller lity:[facility] Start: 06-26-2024 Keven AWAD L Rubén Nuno Start: 06-19-2024 ambulatory Kwabena Fuller lity:[facility] Start: 06-19-2024 Keven Nuno Start: 06-12-2024 ambulatory Keven Etienne OLS Fa cility:[facility] Start: 06-12-2024 Keven Montana Renuka Nuno Start: 06-05-2024 ambulatory Keven KIRKPATRICK Fa cility:[facility] Start: 06-05-2024 Keven Nuno Start: 06-01-2024 End: 06-01-2024 Dr. Ciro Diego MD -[facility] Work Phone: Start: 06-01-2024 End: 06-01-2024 ambulatory Ciro Diego Facility:[facility] Start: 05-30-2024 End: 05-30-[address] Kwabena Menjivar MD Work Phone: [facility] Work Phone: Start: 05-30-2024 End: 05-30-2024 Angelika LAUREN -[facility] Work Phone: Start: 05-29-2024 ambulatory Keven KIRKPATRICK Fa cility:[facility] Start: 05-29-2024 Registered Referred Keven MontanaRenuka Nuno Start: 05-29-2024 Keven Nuno Start: 05-25-2024 End: 05-25-2024 Patient encounter procedure Sonia LAUREN -[facility] Work Phone: Start: 05-25-2024 End: 05-25-[address] Kwabena Menjivar MD Work Phone: [facility] Work Phone: Start: 05-25-2024 End: 05-25-2024 Sonia Isbell NP-C -Radiology [facility] Work Phone: Start: 05-25-2024 End: 05-25-2024 Patient encounter procedure Sonia Isbell NP-C -[facility] Work Phone: Start: 05-25-2024 End: 05-25-2024 Sonia Isbell NP-C -[facility] Work Phone: Start: 05-25-2024 End: 05-25-2024 ambulatory Sonia Isbell Facility:[facility] Start: 05-25-2024 End: 05-25-2024 ambulatory Sonia Isbell Facility:[facility] Start: 05-23-2024 End: 05-23-[address] Kwabena Menjivar MD Work Phone: [facility] Work Phone: Start: 05-23-2024 End: 05-23-2024 Dr. Keven Etienne MD -[facility] Work Phone: Start: 05-22-2024 End: 05-22-[address] Kwabena Menjivar MD Work Phone: [facility] Work Phone: Start: 05-22-2024 Registered Referred Keven Etienne MD -Renuka Nuno Start: 05-22-2024 End: 05-22-2024 Keven MontanaRenuka Nuno Start: 05-11-2024 Non-patient / Non-visit Dr. Ciro Diego MD -[facility] Start: 05-11-2024 Dr. Ciro Diego MD -[facility] Start: 05-09-2024 Non-patient / Non-visit Dr. Corazon Wright DO [facility] Work Phone: Start: 05-09-2024 Dr. Corazon Wright [facility] Work Phone: Start: 05-08-2024 Non-patient / Non-visit Dr. Corazon Wright [facility] Work Phone: Start: 05-08-2024 Dr. Corazon Wright [facility] Work Phone: Start: 05-05-2024 Non-patient / Non-visit Dr. Corazon Wright [facility] Work Phone: Start: 05-05-2024 Dr. Corazon Wright [facility] Work Phone: Start: 05-03-2024 Non-patient / Non-visit Dr. Corazon Wrihgt [facility] Work Phone: Start: 05-03-2024 Dr. Corazon Wright [facility] Work Phone: Start: 05-02-2024 Non-patient / Non-visit Dr. Corazon Wright [facility] Work Phone: Start: 05-02-2024 Dr. Corazon Wright [facility] Work Phone: Start: 05-01-2024 Non-patient / Non-visit Dr. Corazon Wright [facility] Work Phone: Start: 05-01-2024 Dr. Corazon Wright [facility] Work Phone: Start: 04-30-2024 End: 04-30-2024 ambulatory [facility] Facility:[facility] Start: 04-30-2024 End: 04-30-2024 Non-patient / Non-visit Dr. David Granados MD [facility] Work Phone: Start: 04-30-2024 End: 04-30-2024 Dr. David Granados MD [facility] Work Phone: Start: 04-28-2024 Non-patient / Non-visit FeliciaTara Wright [facility] Work Phone: Start: 04-28-2024 Corazon Julian emmaclaudio Kyle [facility] Work Phone: Start: 04-27-2024 [facility] Start: 04-27-2024 [facility] Start: 04-27-2024 ambulatory Corazon Wright Facility:[facility] Start: 04-27-2024 End: 05-20-2024 Evaluation and management of inpatient Felicia Sementi DO -Rehab Unit Work Phone: Start: 04-27-2024 End: 05-20-2024 Dr. Corazon Wright DO -Rehab Unit Work Phone: Start: 04-27-2024 Non-patient / Non-visit Dr. Harish [facility] Work Phone: Start: 04-27-2024 Dr. Harish Baxter MD [facility] In[facility] Work Phone: Start: 04-26-2024 Non-patient / Non-visit Dr. Harish Baxter MD [facility] Work Phone: Start: 04-26-2024 Dr. Harish Nicolas [facility] In[facility] Work Phone: Start: 04-26-2024 Non-patient / [facility] Start: 04-26[facility]2024 [facility] Start: 04-25-2024 Non-patient / Non-visit Dr. Harish Baxter MD [facility] Work Phone: Start: 04-25-2024 Dr. Harish Nicolas [facility] In[facility] Work Phone: Start: 04-24-2024 Non-patient / Non-visit Dr. Harish Baxter MD -[facility] Work Phone: Start: 04-24-2024 Dr. Harish Baxter MD -[facility] Inpatient [facility]icians Work Phone: Start: 04-24-2024 End: 04-24-2024 ambulatory [facility] Facility:[facility] Start: 04-24-2024 End: 04-24-2024 Non-patient / Non-visit Dr. David Granados MD -[facility] Work Phone: Start: 04-24-2024 End: 04-24-2024 Dr. David Granados MD -[facility] Work Phone: Start: 04-23-2024 Non-patient / Non-visit Dr. Keanu Alfred [facility] Inpatient [facility] Work Phone: Start: 04-23-2024 Dr. Keanu Alfred DO [facility] grzegorz Inpatient Physicians Work Phone: Start: 04-22-2024 Non-patient / Non-visit Dr. Keanu Alfred DO [facility] Work Phone: Start: 04-22-2024 [facility] Work Phone: Start: 04-21-2024 Non-patient / Non-visit [facility]. Ciro Deigo MD -[facility] Start: 04-21-2024 Dr. Ciro Diego MD [facility] Start: 04-21-2024 ambulatory [facility] Start: 04-21-2024 Non-patient / Non-visit Dr. Keanu Alfred DO [facility] Work Phone: Start: 04-21-2024 [facility] Work Phone: Start: 04-20-2024 [facility] Start: 04-20-2024 End: 04-27-2024 Evaluation and management of inpatient Dr. Harish Baxter MD -[facility] Unit Work Phone: Start: 04-20-2024 End: 04-27-2024 Dr. Harish Baxter MD -[facility] Work Phone: Start: 04-20-2024 Non-patient / Non-visit Dr. Keanu Alfrde DO [facility] In[facility] Work Phone: Start: 04-20-2024 Dr. Keanu Alfred [facility] Inpatient [facility]icians Work Phone: Start: 04-19-2024 ambulatory [facility] lity:[facility] Start: 04-19-2024 Evaluation and management of inpatient Dr. Keanu Alfred DO -[facility] Care Unit Work Phone: Start: 04-19-2024 Non-patient / Non-visit Dr. Danette Sargent MD -[facility] Start: 04-19-[address] Akhil Menjivar MD Work Phone: [facility] Work Phone: Start: 04-19-2024 Dr. Danette Sargent MD -[facility] Start: 03-08-2024 End: 03-08-[address] David Granados MD -[facility] Start: 03-08-2024 End: 03-08-2024 [facility] Start: 02-26-2024 End: 02-26-2024 Emergency department patient visit Dr. Asher Flores MD -Emergency Department Work Phone: Start: 10-22-2022 End: 10-22-2022 ambulatory [facility] Work Phone: Start: 10-22-2022 End: 10-22-2022 Patient encounter procedure [facility] Work Phone: Start: 10-14-2022 End: 10-14-2022 ambulatory [facility] Work Phone: Start: 10-14-2022 End: 10-14-2022 Discharged Recurring [facility]-Physical Therapy Work Phone: Start: 08-24-2022 End: 08-24-2022 ambulatory [facility] Work Phone: Start: 08-24-2022 End: 08-24-2022 Patient encounter procedure [facility]-Radiology, [place] Work Phone: Start: 09-14-2016 End: 09-15-2016 Emergency department patient visit BAONELL CERVANTES Facility:B Start: 09-12-2016 End: 09-12-2016 Emergency department patient visit JORGE L Orellana ANTHONYJacquelyn Facility:[facility] Procedures Date Procedure Procedure Detail Performing [...] Start: 06-26-2024 Platelet mean volume determination Dr. Kwabena Menjivar MD Work Phone: Start: 06-19-2024 Blood [...] Care Activity Detail Author Start: 08-17-2024 ambulatory Facility:[facility] Start: 08-03-2024 X-ray of cervical spine [facility] Start: 08-03-2024 XR Cervical spine 2 or 3 Views [facility] Start: 05-25-2024 Patient referral [facility] Work Phone: Start: 05-20-2024 Patient discharge [facility] Start: 05-15-2024 [facility] Start: 05-12-2024 [facility] Start: 05-10-2024 [facility] Start: 05-09-2024 [facility] Start: 05-09-2024 End: 05-09-2024 [facility] Start: 05-08-2024 Introduction of urinary catheter [facility] Start: 05-08-2024 Urinary bladder training [facility] Start: 05-02-2024 [facility] Start: 05-01-2024 [facility] Start: 04-29-2024 [facility] Start: 04-28-2024 Application of intermittent pneumatic compression device [facility] Start: 04-27-2024 Speech therapy assessment [facility] Start: 04-27-2024 Scheduling [facility] Start: 04-27-2024 Wound care [facility] Start: 04-27-2024 Referral to service [facility] Start: 04-27-2024 Admission procedure [facility] Start: 04-27-2024 Measuring intake and output [facility] Start: 04-27-2024 Patient referral to dietitian [facility] Start: 04-27-2024 Vital signs measurements [facility] Start: 04-27-2024 End: 04-27-2024 [facility] Start: 04-27-2024 Referral to occupational therapist [facility] Start: 04-27-2024 Catheterization of vein [facility] Start: 04-27-2024 Patient discharge [facility] Start: 04-27-2024 Speech therapy assessment [facility] Start: 04-26-2024 [facility] Start: 04-26-2024 Application of device [facility] Start: 04-26-2024 Referral to occupational therapist [facility] Start: 04-26-2024 Assessment of risk of venous thromboembolism [facility] Start: 04-26-2024 Following clinical pathway protocol [facility] Start: 04-26-2024 Introduction of urinary catheter [facility] Start: 04-26-2024 Measuring intake and output [facility] Start: 04-26-2024 Neurovascular assessment [facility] Start: 04-26-2024 Oxygen therapy [facility] Start: 04-26-2024 Patient education [facility] Start: 04-26-2024 Provision of activity privileges [facility] Start: 04-26-2024 Referral to service [facility] Start: 04-26-2024 Taking patient vital signs [facility] Start: 04-26-2024 [facility] Start: 04-24-2024 Application of intermittent pneumatic compression device [facility] Start: 04-20-2024 Admission procedure [facility] Start: 04-20-2024 Consultation [facility] Start: 04-20-2024 [facility] Start: 04-19-2024 Following clinical pathway protocol [facility] Start: 04-19-2024 Assessment of risk of venous thromboembolism [facility] Start: 04-19-2024 Consultation [facility] Start: 04-19-2024 Insertion of catheter into peripheral vein [facility] Start: 04-19-2024 Measuring intake and output [facility] Start: 04-19-2024 Providing care according to standard [facility] Start: 04-19-2024 Provision of activity privileges [facility] Start: 04-19-2024 Referral to occupational therapist [facility] Start: 04-19-2024 Referral to service [facility] Start: 04-19-2024 [facility] Start: 04-19-2024 Hospital admission, emergency, from emergency room, medical nature [facility] Start: 04-19-2024 Admission procedure [facility] Start: 04-19-2024 [facility] Start: 04-19-2024 Oxygen therapy [facility] Start: 04-19-2024 End: 04-19-2024 [facility] Start: 04-19-2024 Patient referral to dietitian [facility] Start: 04-19-2024 [facility] Start: 02-26-2024 [facility] Start: 10-22-2022 [facility] Mitotic spindle appa ratus Ab [Titer] in Serum or Plasma [facility] Neuronal nuclear Ab [Presence] in Serum by Immunofluorescence [facility] Nuclear Ab [Titer] i n Serum by Immunofluorescence [facility] Patient Education ED Contusion, Upper Extremity ED Head Injury (Adult) [facility] Work Phone: Patient referral [facility] Work Phone: Serum HEAVEN pattern [facility] Speckled nuclear Ab pattern [Titer] in Serum [facility] Troponin T.cardiac [Mass/volume] in Serum or Plasma by High sensitivity method [facility] Troponin T.cardiac [Mass/volume] in Serum or Plasma by High sensitivity method [facility] Payers Date Payer Category Payer Self-pay [id number] 2024 Private Health Insurance [id number] 2016 Medicare [id number] 2006 Medicare [id number] Unknown [id number] 2.16.8 40.1.102600.3.579.2.462 Unknown [id number] 2.16.8 40.1.179283.3.579.2.462 Unknown [id number] 2.16.8 40.1.564444.3.579.2.462 Unknown [id number] 2.16.8 40.1.828284.3.579.2.462 Unknown [id number] 2.16.8 40.1.106371.3.579.2.462 Unknown [id number] 2.16.8 40.1.732501.3.579.2.462 Unknown [id number] 2.16.8 40.1.774574.3.579.2.462 Unknown [id number] 2.16.8 40.1.712829.3.579.2.462 Unknown [id number] 2.16.8 40.1.064333.3.579.2.462 Unknown [id number] 2.16.8 40.1.383139.3.579.2.462 Unknown [id number] 2.16.8 40.1.131008.3.579.2.462 Unknown [id number] 2.16.8 40.1.690043.3.579.2.462 Unknown [id number] 2.16.8 40.1.214823.3.579.2.462 Unknown [id number] 2.16.8 40.1.991882.3.579.2.462 Unknown [id number] 2.16.8 40.1.613270.3.579.2.462 Unknown [id number] 2.16.8 40.1.842327.3.579.2.462 Unknown [id number] 2.16.8 40.1.483762.3.579.2.462 Unknown [id number] 2.16.8 40.1.429699.3.579.2.462 Unknown [id number] 2.16.8 40.1.593185.3.579.2.462 Unknown [id number] 2.16.8 40.1.918202.3.579.2.462 Unknown [id number] 2.16.8 40.1.922436.3.579.2.462 Unknown [id number] 2.16.8 40.1.684792.3.579.2.462 Unknown [id number] 2.16.8 40.1.238118.3.579.2.462 Unknown [id number] 2.16.8 40.1.315965.3.579.2.462 Unknown [id number] 2.16.8 40.1.705854.3.579.2.462 Unknown [id number] 2.16.8 40.1.789708.3.579.2.462 Unknown [id number] 2.16.8 40.1.044616.3.579.2.462 Unknown [id number] 2.16.8 40.1.611182.3.579.2.462 Unknown [id number] 2.16.8 40.1.303531.3.579.2.462 Unknown [id number] 2.16.8 40.1.141980.3.579.2.462 Unknown [id number] 2.16.8 40.1.647683.3.579.2.462 Unknown [id number] 2.16.8 40.1.730882.3.579.2.462 Unknown [id number] 2.16.8 40.1.055010.3.579.2.462 Unknown [id number] 2.16.8 40.1.428223.3.579.2.462 Unknown [id number] 2.16.8 40.1.355630.3.579.2.462 Unknown [id number] 2.16.8 40.1.281269.3.579.2.462 Unknown [id number] 2.16.8 40.1.544384.3.579.2.462 Unknown [id number] 2.16.8 40.1.526630.3.579.2.462 Unknown [id number] 2.16.8 40.1.924693.3.579.2.462 Unknown [id number] 2.16.8 40.1.251000.3.579.2.462 Unknown [id number] 2.16.8 40.1.873540.3.579.2.462 Unknown [id number] 2.16.8 40.1.270064.3.579.2.462 Unknown [id number] 2.16.8 40.1.006711.3.579.2.462 Unknown [id number] 2.16.8 40.1.639316.3.579.2.462 Unknown [id number] 2.16.8 40.1.016367.3.579.2.462 Unknown [id number] 2.16.8 40.1.705349.3.579.2.462 Unknown [id number] 2.16.8 40.1.812828.3.579.2.462 Unknown [id number] 2.16.8 40.1.628874.3.579.2.462 Unknown [id number] 2.16.8 40.1.709275.3.579.2.462 Unknown [id number] 2.16.8 40.1.156696.3.579.2.462 Unknown [id number] 2.16.8 40.1.111916.3.579.2.462 Unknown [id number] 2.16.8 40.1.421467.3.579.2.462 Social History Date Type Detail Facility Start: 03-28-2021 Tobacco smoking stat [facility] Unknown if ever smoked [facility] Start: 1940 Sex Assigned At Male [facility] Start: 04-19-2024 End: 07-27-2024 Tobacco smoking status NHIS Ex-smoker (finding) [facility] Start: 04-19-2024 End: 05-31-2024 Sex Male (finding) [facility] Medical Equipment Procedure Code Equipment Code Equipment [...] Discectomy, spine, cervical, anterior approach, with fusion [id number] FDA Start: 04-26-2024 Discectomy, spine, cervical, anterior [...] 05-20-2024 Functional status With Assist of 1 [facility] Work Phone: 05-18-2024 Functional status Chair;Bedrest [facility] Work Phone: 04-27-2024 Functional status Bedside Commode;Back to bed [facility] Work Phone: Mental Status Date Assessment Result Facility 05-20-2024 Cognitive function Voice/Name [facility] Work Phone: 04-27-2024 Cognitive function Awake;Alert;A ppropriate;Fol lows Commands [facility] Work Phone: 04-27-2024 Cognitive function Voice/Name [facility] Work Phone: 04-19-2024 Cognitive function Voice/Name [facility] Work Phone: Clinical Notes 03-19-2020 to 07-21-2024 Note Date & Type Note Facility 07-21-2024 Radiology Diagnostic study note [facility] 05-25-2024 Radiology Diagnostic study note [facility] Imaging Services [address] [place] [id number] Abdomen Single View MR#: [id number] Acct: [id number] Name: YAS ROSA Brigido Rep #: [id number] : 1940 M 83 From: Oren Narvaez DO PCP: Dr. Kwabena Menjivar MD Status: REG CLI Study:Abdomen Single View Date of Exam: 05/25/24 Exam# [id number] Ordering Dr: Sonia Isbell PROCEDURE: Abdominal radiographs, [...] developing fecal impaction. Reading Location: [facility] CC: DINKEY LOCOMOTIVE ENGINEER-Bryce Isbell; Dr. Kwabena Menjivar MD ~ Nib Inspector: Signed [facility] 05-18-2024 Discharge summary Note Date/Time May 18, 2024 9:03am [facility] Medical Records Department [address] [place] [address] Transfer to Extended Care MR#: [id number] Acct: [id number] Name: YAS ROSA Rep #:[id number] : 1940 83 From: Mariano Chan MD PCP: Dr. Kwabena Menjivar MD Status :ADM IN Certification of patient admission REQUIRED AT TIME OF ADMISSION. I CERTIFY THAT POST-HOSPITAL ECF SERVICES ARE REQUIRED TO BE GIVEN ON AN IN-PATIENT BASIS BECAUSE OF THE ABOVE NAMED PATIENT'S NEED FOR [facility] CARE ON A CONTINUING BASIS FOR THE CONDITION(S) FOR WHICH HE/SHE WAS RECEIVING IN-PATIENT HOSPITAL SERVICES PRIOR TO HIS/HER TRANSFER TO THE ECF. 05/18/24 0903<Electronically signed by Mariano Chan MD> Diet Diet Order/Speech Therapy: 05/09/24 11:34 Diet: Regular - General Food consistency:: Pureed Liquid Consistency:: [place]/Mildly Thick Type of Dietary Supplement:: Magic Cup [...] Recommendations Dietitian Recommendations/Changes: Continue regular diet per CONFERENCE SERVICES MANAGER consistency/recommendations. Continue 120ml EPHP 4x daily with medpass, prefers vanilla or strawberry. Adjust to vanilla magic cup with dinner. Will order vanilla fortified pudding with breakfast and lunch. Will monitor weight trends. 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 CONFERENCE SERVICES MANAGER informally assessed pt vocal quality through the [...] sustained manner appropriately despite max cues from CONFERENCE SERVICES MANAGER. Pt. would often substitute /sh/ for /s/. Maximum Phonation of /ah/ -Sustained /ah/: average of 10.73 seconds IMPAIRED Findings indicate poor breath support and glottis sufficiency. Discharge Plan Admission Admit Date/Time: 04/27/24 15:15 Primary Reason for Your Visit: Debility. Attending Provider: Corazon Wright Primary Care Provider: Kwabena Menjivar Instructions Additional Instructions / Restrictions: Discharge to [facility] 05/20/2024, skilled. Discharge Orders/Prescriptions Prescriptions: New [...] 0RF bisacodyl 10 mg Suppository 10 mg DE X1 PRN (Reason: Constipation) Qty: 0 0RF [...] in before D/C Order can be placed): Intermediate Facility (4) Dysphagia Qualifiers: Dysphagia type: pharyngeal phase Qualified Code(s): R13.13 - Dysphagia, pharyngeal phase 05/18/24 0903 <Electronically signed by Mariano Chan MD> Cosigner Signature (if applicable): CC: Dr. Kwabena Menjivar MD ~ [facility] Work Phone: 1(923) 947-212804-10-2025 Discharge summary Author [facility] Note Date/Time May 18, 2024 9:0 2am [facility] Medical Records Department [address] [place] [address] Discharge Summary 05/18/24 0852 MR#: [id number] Acct: [id number] Name: YAS ROSA Rep #:[id number] : 1940 83 From: Mariano Chan MD PCP: Dr. Kwabena Menjivar MD Status :ADM IN Location: [address] Providers Date of Admission: 04/27/24 Primary [...] bisacodyl 10 mg rectal suppository 10 mg DE X1 PRN Constipation #0 ea 05/18/24 carboxymethylcellulose [...] C-collar over the next week. Discharge to [facility] 05/20/2024, skilled. Physical Exam Const alert [...] Discharge instructions: No Additional Instructions: Discharge to [facility] 05/20/2024, skilled. Meaningful Use Info Meaningful [...] Instructions Additional Instructions / Restrictions: Discharge to [facility] 05/20/2024, skilled. Discharge Orders/Prescriptions Prescriptions: New [...] 0RF bisacodyl 10 mg Suppository 10 mg DE X1 PRN (Reason: Constipation) Qty: 0 0RF [...] in before D/C Order can be placed): Intermediate Facility 05/18/24 09 <Electronically signed by Mariano Chan MD> Cosigner Signature (if applicable): CC: Dr. Kwabena Menjivar MD; Dr. Mariano Chan MD~ Signed [facility] Work Phone: 1(516) 772-182104-10-2025 Discharge summary [facility] Medical Records Department [address] [place] [address] [facility] Care MR#: [id number] Acct: [id number] Name: YAS ROSA Rep #:[id number] : 1940 83 From: Mariano Chan MD PCP: Dr. Kawbena Menjivar MD Status :ADM IN Certification of patient admission REQUIRED AT TIME OF ADMISSION. I CERTIFY THAT POST-HOSPITAL ECF SERVICES ARE REQUIRED TO BE GIVEN ON AN IN-PATIENT BASIS BECAUSE OF THE ABOVE NAMED PATIENT'S NEED FOR [facility] CARE ON A CONTINUING BASIS FOR THE CONDITION(S) FOR WHICH HE/SHE WAS RECEIVING IN-PATIENT HOSPITAL SERVICES PRIOR TO HIS/HER TRANSFER TO THE F. 05/18/24 0903 Diet Diet Order/Speech Therapy: 05/09/24 11:34 Diet: Regular - General Food consistency:: Pureed Liquid Consistency:: [place]/Mildly Thick Type of Dietary Supplement:: Magic Cup [...] Recommendations Dietitian Recommendations/Changes: Continue regular diet per CONFERENCE SERVICES MANAGER consistency/recommendations. Continue 120ml EPHP 4x daily with medpass, prefers vanilla or strawberry. Adjust to vanilla magic cup with dinner. Will order vanilla fortified pudding with breakfast and lunch. Will monitor weight trends. 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 CONFERENCE SERVICES MANAGER informally assessed pt vocal quality through the [...] sustained manner appropriately despite max cues from CONFERENCE SERVICES MANAGER. Pt. would often substitute /sh/ for /s/. Maximum Phonation of /ah/ -Sustained /ah/: average of 10.73 seconds IMPAIRED Findings indicate poor breath support and glottis sufficiency. Discharge Plan Admission Admit Date/Time: 04/27/24 15:15 Primary Reason for Your Visit: Debility. Attending Provider: Corazon Wright Primary Care Provider: Kwabena Menjivar Instructions Additional Instructions / Restrictions: Discharge to [facility] 05/20/2024, skilled. Discharge Orders/Prescriptions Prescriptions: New [...] 0RF bisacodyl 10 mg Suppository 10 mg DE X1 PRN (Reason: Constipation) Qty: 0 0RF [...] in before D/C Order can be placed): Intermediate Facility (4) Dysphagia Qualifiers: Dysphagia type: pharyngeal phase Qualified Code(s): R13.13 - Dysphagia, pharyngeal phase 05/18/24 09 Cosigner Signature (if applicable): CC: Dr. Kwabena Menjivar MD ~ [facility]04-10-2025 Discharge summary [facility] Medical Records Department [address] [place] [address] Discharge Summary 05/18/24 0852 MR#: [id number] Acct: [id number] Name: YAS ROSA Rep #:[id number] : 1940 83 From: Mariano Chan MD PCP: Dr. Kwabean Menjivar MD Status :ADM IN Location: [place] [address]-1 Providers Date of Admission: 04/27/24 Primary Care [...] bisacodyl 10 mg rectal suppository 10 mg DE X1 PRN Constipation #0 ea 05/18/24 carboxymethylcellulose [...] C-collar over the next week. Discharge to [facility] 05/20/2024, skilled. Physical Exam Const alert [...] Discharge instructions: No Additional Instructions: Discharge to [facility] 05/20/2024, skilled. Meaningful Use Info Meaningful [...] Instructions Additional Instructions / Restrictions: Discharge to [facility] 05/20/2024, skilled. Discharge Orders/Prescriptions Prescriptions: New [...] 0RF bisacodyl 10 mg Suppository 10 mg DE X1 PRN (Reason: Constipation) Qty: 0 0RF [...] in before D/C Order can be placed): Intermediate Facility 05/18/24901 Cosigner Signature (if applicable): CC: Dr. Kwabena Menjivar MD; Dr. Mariano Chan MD~ Signed [facility]04-10-[facility] Progress note Author [facility] Note Date/Time May 17, 2024 8:15 am [facility] Medical Records Department [address] [place] [address] Progress Note - Rehab 05/17/24812 MR#: [id number] Acct: [id number] Name: YAS ROSA Rep #:[id number] : 1940 83 From: Mariano Chan MD PCP: Dr. Kwabena Menjivar MD Status :ADM IN Location: [place] [address] Subjective Subjective Patient seen, examined. He is [...] Cosigner Signature (if applicable): CC: ~ Signed [facility] Work Phone: 1(102) 168-101804-09-2025 Progress note [facility] Medical Records Department [address] [place] [address] Progress Note - Rehab 05/17/24812 MR#: [id number] Acct: [id number] Name: YAS ROSA Rep #:[id number] : 1940 83 From: Mariano Chan MD PCP: Dr. Kwabena Menjivar MD Status :ADM IN Location: [place] [address] Subjective Subjective Patient seen, examined. He is [...] Cosigner Signature (if applicable): CC: ~ Signed [facility]04-08-2025 Progress note Author Mariano Chan [facility] Note Date/Time May 16, 2024 8:25 am [facility] Medical Records Department [address] [place] [address] Progress Note - Rehab 05/16/24820 MR#: [id number] Acct: [id number] Name: YAS ROSA Rep #:[id number] : 1940 83 From: Mariano Chan MD PCP: Dr. Kwabena Menjivar MD Status :ADM IN Location: [place] [address] Subjective Subjective Patient seen, examined. Elayne from OT present. Milan is out of c-collar for breakfast. He was able to walk to the bathroom today instead of using wheelchair, plan is discharge to [facility] in 4 days. Objective Data Objective Data [...] Cosigner Signature (if applicable): CC: ~ Signed [facility] Work Phone: 1(412) 274-193304-08-2025 Progress note [facility] Medical Records Department [address] [place] [address] Progress Note - Rehab 05/16/24820 MR#: [id number] Acct: [id number] Name: YAS ROSA Rep #:[id number] : 1940 83 From: Mariano Chan MD PCP: Dr. Kwabena Menjivar MD Status :ADM IN Location: [place] [address] Subjective Subjective Patient seen, examined. Elayne from OT present. [place] is out of c-collar for breakfast. He was able towalk to the bathroom today instead of using wheelchair, plan is discharge to [facility] in 4 days. Objective Data Objective Data [...] Cosigner Signature (if applicable): CC: ~ Signed [facility]04-07-2025 Progress note Author Mariano Dustin [facility] Note Date/Time May 15, 2024 7:49 am [facility] Medical Records Department [address] [place] [address] Progress Note - Rehab 05/15/24 0747 MR#: [id number] Acct: [id number] Name: YAS ROAS Rep #:[id number] : 1940 83 From: Mariano Chan MD PCP: Dr. Kwabena Menjivar MD Status :ADM IN Location: [place] [address] Subjective Subjective Patient seen, examined. He told [...] Cosigner Signature (if applicable): CC: ~ Signed [facility] Work Phone: 1(609) 505-794504-07-2025 Progress note [facility] Medical Records Department [address] [place] [address] Progress Note - Rehab 05/15/24 0747 MR#: [id number] Acct: [id number] Name: YAS ROSA Rep #:[id number] : 1940 83 From: Mariano Chan MD PCP: Dr. Kwabena Menjivar MD Status :ADM IN Location: [place] [address] Subjective Subjective Patient seen, examined. He told [...] Cosigner Signature (if applicable): CC: ~ Signed [facility]04-04-2025 Progress note Author Mariano Dustin [facility] Note Date/Time May 12, 2024 8:08 am [facility] Medical Records Department [address] [place] [address] Progress Note - Rehab 05/12/24 0802 MR#: [id number] Acct: [id number] Name: YAS ROSA Rep #:[id number] : 1940 83 From: Mariano Chan MD PCP: Dr. Kwabena Menjivar MD Status :ADM IN Location: [place] [address] Subjective Subjective Patient seen, examined. Dr. Diego [...] Catheter Urine Culture - Preliminary GNR lactose clearing house clerk 04/27/24 22:05 Urine Catheter - Catheter Urine [...] culture growing 50,000 to 80,000 gnr lactose clearing house clerk, Cipro 250mg bid x 7 days. * Nutrition - Ensure Plus 120mL 4x/day. * Neuropathic pain - Gabapentin 100mg bidcm. * Skin irritation - Calmoseptine topical bid. * Orthostatic hypotension - Midodrine 10mg tid. * Depression/Insomnia/appetite loss - Mirtazapine 15mg qhs. * GERD - Pantoprazole 40mg bid. 05/12/24 0808 <Electronically signed by Mariano Chan MD> Cosigner Signature (if applicable): CC: ~ Signed [facility] Work Phone: 1(828) 861-271704-04-2025 Progress note [facility] Medical Records Department [address] [place] [address] Progress Note - Rehab 05/12/24 0802 MR#: [id number] Acct: [id number] Name: YAS ROSA Rep #:[id number] : 1940 83 From: Mariano Chan MD PCP: Dr. Kwabena Menjivar MD Status :ADM IN Location: [place] [address] Subjective Subjective Patient seen, examined. Dr. Diego [...] Catheter Urine Culture - Preliminary GNR lactose clearing house clerk 04/27/24 22:05 Urine Catheter - Catheter Urine [...] culture growing 50,000 to 80,000 gnr lactose clearing house clerk, Cipro 250mg bid x 7 days. * Nutrition - Ensure Plus 120mL 4x/day. * Neuropathic pain - Gabapentin 100mg bidcm. * Skin irritation - Calmoseptine topical bid. * Orthostatic hypotension - Midodrine 10mg tid. * Depression/Insomnia/appetite loss - Mirtazapine 15mg qhs. * GERD - Pantoprazole 40mg bid. 05/12/24 0808 Cosigner Signature (if applicable): CC: ~ Signed [facility]04-03-2025 Progress note Author Ciro Diego [facility] Note Date/Time May 11, 2024 2:35 pm [facility] Medical Records Department [address] [place] [address] Progress Note - Orthopedic 05/11/24 1426 MR#: [id number] Acct: [id number] Name: YAS ROSA Brigido Rep #:[id number] : 1940 83 From: Ciro Diego MD PCP: Dr. Kwabena Menjivar MD Status :ADM IN Location: [place] [address] Subjective Subjective Saw patient in [facility] today as a 2-week [...] Catheter Urine Culture - Preliminary GNR lactose clearing house clerk 04/27/24 22:05 Urine Catheter - Catheter Urine Culture - Final Culture exhibits no growth. 04/29/24 22:20 Stool Stool Occult Blood (JERMAINE) - Final Radiography Diagnostic Testing: Radiology Impression Cervical Spine X-Ray 05/10/24 15:00 IMPRESSION: Stable ACDF hardware. No acute fracture or traumatic listhesis. Reading Location: [facility] Physical Exam Narrative Examination the neck shows [...] Cosigner Signature (if applicable): CC: ~ Signed [facility] Work Phone: 1(267) 263-828604-03-2025 Progress note [facility] Medical Records Department [address] [place] [address] Progress Note - Orthopedic 05/11/24 1426 MR#: [id number] Acct: [id number] Name: YAS ROSA Rep #:[id number] : 1940 83 From: Ciro Diego MD PCP: Dr. Kwabena Menjivar MD Status :ADM IN Location: [place] [address] Subjective Subjective Saw patient in [facility] today as a 2-week [...] Catheter Urine Culture - Preliminary GNR lactose clearing house clerk 04/27/24 22:05 Urine Catheter - Catheter Urine Culture - Final Culture exhibits no growth. 04/29/24 22:20 Stool Stool Occult Blood (JERMAINE) - Final Radiography Diagnostic Testing: Radiology Impression Cervical Spine X-Ray 05/10/24 15:00 IMPRESSION: Stable ACDF hardware. No acute fracture or traumatic listhesis. Reading Location: [facility] Physical Exam Narrative Examination the neck shows [...] Cosigner Signature (if applicable): CC: ~ Signed [facility]04-02-2025 Progress note Author Mariano Chan [facility] Note Date/Time May 10, 2024 5:41 pm [facility] Medical Records Department [address] [place] [address] Progress Note - Rehab 05/10/24 1731 MR#: [id number] Acct: [id number] Name: YAS ROSA Rep #:[id number] : 1940 83 From: Mariano Chan MD PCP: Dr. Kwabena Menjivar MD Status :ADM IN Location: [address] Subjective Subjective Patient seen, examined. He [...] Sl. Cloudy, Urine pH 6.0, Ur Specific [place] 1.015, Urine Protein 500 H, Urine Glucose [...] acute fracture or traumatic listhesis. Reading Location: [id number] Indicators for Scoring Admitted with or Primary [...] Cosigner Signature (if applicable): CC: ~ Signed [facility] Work Phone: 1(377) 555-302804-02-2025 Progress note [facility] Medical Records Department [address] [place] [address] Progress Note - Rehab 05/10/24 1731 MR#: [id number] Acct: [id number] Name: YAS ROSA Rep #:[id number] : 1940 83 From: Mariano Chan MD PCP: Dr. Kwaebna Menjivar MD Status :ADM IN Location: [place] [address] Subjective Subjective Patient seen, examined. He seems [...] Sl. Cloudy, Urine pH 6.0, Ur Specific [place] 1.015, Urine Protein 500 H, Urine Glucose [...] acute fracture or traumatic listhesis. Reading Location: [facility] Indicators for Scoring Admitted with or Primary [...] Cosigner Signature (if applicable): CC: ~ Signed [facility]04-02-2025 Radiology Diagnostic study note [facility] Imaging Services [address] [place], [place] [address] Cerv Spine 2 or 3 Views MR#: [id number] Acct: [id number] Name: YAS ROSA Rep #: [id number] : 1940 M 83 From: Lisa Bailey MD PCP: Dr. Kwabena Menjivar MD Status: ADM IN Study:Cerv Spine 2 or 3 Views Date of Exam: 05/10/24 Exam# [id number] Ordering Dr: Sherwin Clark PROCEDURE: CERV SPINE [...] acute fracture or traumatic listhesis. Reading Location: [id number] CC: DINKEY LOCOMOTIVE ENGINEER-Bryce Clark; Dr. Kwabena Menjivar MD ~ Nib Inspector: Signed [facility]04-01-2025 Progress note Author Corazon Wright [facility] Note Date/Time May 09, 2024 12:5 2pm [facility] Medical Records Department [address] [place] [address] Progress Note 05/09/24 1035 MR#: [id number] Acct: [id number] Name: YAS ROSA Rep #:[id number] : 1940 83 From: Corazon Wright DO PCP: Dr. Kwabena Menjivar MD Status :ADM IN Location: [place] [address]1 Subjective Subjective Afebrile VSS -blood pressure this [...] but, no erythema of the anterior neck. [place] J collar is in place. Psych Psych [...] esophageal dysmotility. Charges/Coding Visit Charges Inpatient E&M: 88864 Subs Hosp L1 05/09/24 8192 <Electronically signed by Corazon Wright DO> Corazon Wright DO Cosigner Signature (if applicable): CC: ~ Signed [facility] Work Phone: 1(259) 134-379604-01-2025 Procedure note [facility] Speech Pathology [address] [place] [address] Modified Barium Swallow Study MR#: [id number] Acct: [id number] Name: YAS ROSA Rep #:[id number] : 1940 83 From: Lalita jacobson M.A., [facility]-CONFERENCE SERVICES MANAGER Modified Barium Swallow Patient Information Study Date: 05/09/24 Study Time: 10:00 Direct Billable Minutes: 120 Total Minutes procedure & reportin Diagnosis: Pharyngeal dysphagia Referring Physician: Corazon Wright Medical History: The patient presented to [facility] ED 04/19/2024 after a fall at home [...] Result: 8= enters airway/below vocal folds/no effort [place] Thick Liquid via teaspoon: Result: 2= enter airway/above vocal folds/ejected [place] Thick Liquid via small single sip: cup: [...] 3: Result: 2= enter airway/above vocal folds/ejected [place] Thick Liquid via single sip: straw: Result: 1= does not enter airway [place] Thick Liquid via single sip: straw Trial [...] Status Active ST Patient: Active Contact Information [facility] Speech Therapy:: Lalita Grande M.A. CONFERENCE SERVICES MANAGER Speech-Language Pathologist [address] [place] [address] [email or web address] [phone] 05/09/24 1253 marti Daigle CCC-CONFERENCE SERVICES MANAGER> Date/Time Lalita Grande M.A., CCC-CONFERENCE SERVICES MANAGER Co-Signature Required for all Medicare patients Date/Time Co-Signature CC: ~ [facility]04-01-2025 Progress note [facility] Medical Records Department [address] [place] [address] Progress Note 05/09/24 1035 MR#: [id number] Acct: [id number] Name: YAS ROSA Rep #:[id number] : 1940 83 From: Corazon Wright DO PCP: Dr. Kwabena Menjivar MD Status :ADM IN Location: [place] [address]1 Subjective Subjective Afebrile VSS -blood pressure this [...] but, no erythema of the anterior neck. [place] J collar is in place. Psych Psych [...] esophageal dysmotility. Charges/Coding Visit Charges Inpatient E&M: 62419 Subs Hosp L1 05/09/24 1252 Corazon Wright DO Cosigner Signature (if applicable): CC: ~ Signed [facility]03-31-2025 Progress note Author Corazon Wright [facility] Note Date/Time May 08, 2024 2:3 8pm [facility] Medical Records Department [address] [place] [address] Progress Note 05/08/24 0956 MR#: [id number] Acct: [id number] Name: YAS ROSA Rep #:[id number] : 1940 83 From: Corazon Wright DO PCP: Dr. Kwabena Menjivar MD Status :ADM IN Location: [id number] Subjective Subjective Milan was seen on team [...] choose from. Charges/Coding Visit Charges Inpatient E&M: 60320 Subs Hosp L2 05/08/24 1438 <Electronically signed by Corazon Wright DO> Corazon Wright DO Cosigner Signature (if applicable): CC: ~ Signed [facility] Work Phone: 1(422) 114-213103-31-2025 Progress note [facility] Medical Records Department [address] [place] [address] Progress Note 05/08/24 0956 MR#: [id number] Acct: [id number] Name: YAS ROSA Rep #:[id number] : 1940 83 From: Corazon Wright DO PCP: Dr. Kwabena Menjivar MD Status :ADM IN Location: [place] [address] Subjective Subjective [place] was seen on team [...] choose from. Charges/Coding Visit Charges Inpatient E&M: 77970 Subs Hosp L2 05/08/24 4979 Corazon Wright DO Cosigner Signature (if applicable): CC: ~ Signed [facility]03-28-2025 Progress note Author Corazon Wright [facility] Note Date/Time May 05, 2024 1:2 0pm [facility] Medical Records Department [address] [place] [address] Progress Note 05/05/24 1103 MR#: [id number] Acct: [id number] Name: YAS ROSA Rep #:[id number] : 1940 83 From: Corazon Wright DO PCP: Dr. Kwabena Menjivar MD Status :ADM IN Location: [facility]-7 Subjective Subjective Afebrile Heart rate continues to [...] [facility]. 5. Needs to follow up with psychiatry for meds and psychotherapy. Charges/Coding Visit Charges Inpatient E&M: 99987 Subs Hosp L1 05/05/24 1320 <Electronically signed by Corazon Wright DO> Corazon Wright DO Cosigner Signature (if applicable): CC: ~ Signed [facility] Work Phone: 1([phone]) 261-521603-28-2025 Progress note [facility] Medical Records Department [address] [place] [address] Progress Note 05/05/24 1103 MR#: [id number] Acct: [id number] Name: YAS ROSA Rep #:[id number] : 1940 83 From: Corazon Wright DO PCP: Dr. Kwabena Menjivar MD Status :ADM IN Location: [place] [address] Subjective Subjective Afebrile Heart rate continues to [...] need to [facility]. 5. Needs to follow up with psychiatry for meds and psychotherapy. Charges/Coding Visit Charges Inpatient E&M: 44417 [facility] Hosp L1 05/05/24 1320 Corazon Doan Signature (if applicable): CC: ~ Signed [facility]03-26-2025 Progress note Author Corazon Wright [facility] Note Date/Time May 03, 2024 1:2 7pm [facility] Medical Records Department [address] [place] [address] Progress Note 05/03/24 1227 MR#: [id number] Acct: [id number] Name: YAS ROSA Rep #:[id number] : 1940 83 From: Corazon Wright DO PCP: Dr. Kwabena Menjivar MD Status :ADM IN Location: [place] [address]1 Subjective Subjective Afebrile VSS -blood pressure over [...] the AM. Charges/Coding Visit Charges Inpatient E&M: 09888 Subs Hosp L1 05/03/24 1327 <Electronically signed by Corazon Wright DO> Corazon Wright DO Cosigner Signature (if applicable): CC: ~ Signed [facility] Work Phone: 1([phone] 843-582403-26-2025 Progress note [facility] Medical Records Department [address] [place] [address] Progress Note 05/03/24 1227 MR#: [id number] Acct: [id number] Name: YAS ROSA Rep #:[id number] : 1940 83 From: Corazon Wright DO PCP: Dr. Kwabena Menjivar MD Status :ADM IN Location: [place] [address] Subjective Subjective Afebrile VSS -blood pressure over [...] breath, cough,palpitations, nausea/vomiting/abdominal pain. Urine in the [place] bag is clear with no sediment. Objective [...] the AM. Charges/Coding Visit Charges Inpatient E&M: 71683 Subs Hosp L1 05/03/24 1327 Corazon Wright DO Cosigner Signature (if applicable): CC: ~ Signed [facility]03-25-2025 Progress note Author Corazon Wright [facility] Note Date/Time May 02, 2024 4:5 7pm [facility] Medical Records Department [address] [place] [address] Progress Note 03/25/25 1236 MR#: [id number] Acct: [id number] Name: YAS ROSA Rep #:[id number] : 1940 83 From: Corazon WuEvette Kyle PCP: Dr. Kwabena Menjivar MD Status :ADM IN Location: [place] [address] Subjective Subjective Afebrile VSS -blood pressure over [...] took 3 staff to walk him at [facility] [place] [facility] assist Medication list reviewed. Has not taken [...] 3 days Charges/Coding Visit Charges Inpatient E&M: 70819 Subs Hosp L1 05/02/24 1657 <Electronically signed by Corazon Wright DO> Corazon Giraldoign Signature (if applicable): CC: ~ Signed [facility] Work Phone: 1(883) 313-632803-25-2025 Progress note [facility] Medical Records Department [address] [place] [address] Progress Note 05/02/24 1236 MR#: [id number] Acct: [id number] Name: YAS ROSA Rep #:[id number] : 1940 83 From: Corazon Wright DO PCP: Dr. Kwabena Menjivar MD Status :ADM IN Location: [place] [address] Subjective Subjective Afebrile VSS -blood pressure over [...] took 3 staff to walk him at [facility] [place] [facility] Medication list reviewed. Has not taken [...] 3 days Charges/Coding Visit Charges Inpatient E&M: 63454 Subs Hosp L1 05/02/24 1657 Corazon Wright DO Cosigner Signature (if applicable): CC: ~ Signed [facility]03-25-2025 Progress note Author Corazon Wright [facility] Note Date/Time May 02, 2024 2:1 3pm [facility] Medical Records Department [address] [place] [address] Progress Note 05/01/24 1234 MR#: [id number] Acct: [id number] Name: YAS ROSA Rep #:[id number] : 1940 83 From: Corazon Wright DO PCP: Dr. Kwabena Menjivar MD Status :ADM IN Location: [place] [address] Subjective Subjective Milan was seen on team [...] continue IVF's. Charges/Coding Visit Charges Inpatient E&M: 48802 Subs Hosp L2 05/02/24 9850 <Electronically signed by Corazon Wright DO> Corazon Wright DO Cosign Signature (if applicable): CC: ~ Signed [facility] Work Phone: 1(225) 408-454303-25-2025 Progress note [facility] Medical Records Department [address] [place] [address] Progress Note 05/01/24 1234 MR#: [id number] Acct: [id number] Name: YAS ROSA Rep #:[id number] : 1940 83 From: Corazon Wright DO PCP: Dr. Kwabena Menjivar MD Status :ADM IN Location: [place] [address] Subjective Subjective Milan was seen on team [...] L, MPV 8.6, Sodium 141, Potassium 4.5, Bsiobfsp448 H, Carbon Dioxide 23.7, Anion Gap 8, [...] continue IVF's. Charges/Coding Visit Charges Inpatient E&M: 93650 Subs Hosp L2 05/02/24 1413 Corazon Wright DO Cosigner Signature (if applicable): CC: ~ Signed [facility]03-21-2025 History and physical note [facility]on [facility] Note Date/Time April 28, 2024 3:3 5pm [facility] Medical Records Department [address] [place] [address] Post Admission Physician Hawaal 04/28/24 1241 MR#: [id number] Acct: [id number] Name: YAS ROSA Rep #:[id number] : 1940 83 From: Corazon Wright DO PCP: Dr. Kwabena Menjivar MD Status :ADM IN Location: [place] [address] Admission Information Primary Diagnosis:: DEBILITY DUE TO [...] Skin integrity and Medication Management Patient needs Shipping Services Sales Representative/ Case Management for: Discharge Planning, Arranging Home [...] TBD Was Preadmission Assessment Accurate?: Yes 04/28/24 8782 <Electronically signed by Corazon Wright DO> Cosigner Signature (if applicable): CC: ~ Signed [facility] Work Phone: 1(796) 565-955803-21-2025 History and physical note Author Corazon Wright [facility] Note Date/Time April 28, 2024 3:2 4pm [facility] Medical Records Department [address] [place] [address] History & Physical Exam 04/28/24 1015 MR#: [id number] Acct: [id number] Name: YAS ROSA Rep #:[id number] : 1940 83 From: Corazon Wright DO PCP: Dr. Kwabena Menjivar MD Status :ADM IN Location: [id number] HPI - General General Date of Admission: [...] vertigo. He presented to the ED at [facility] on 04/19/24 after having a fall in [...] bruising/hematoma of the left face. He denied TORERS but, he complained of neck pain. He [...] meds at presentation to the emergency department. [facility] Medical History (Updated 04/28/24 @ 15:16 by [...] is subluxed dueto muscle atrophy. 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 R arm falls immediately to the bed when I lift it up. He has some tone in the R triceps, biceps and brachioradialis muscle. Has shoulder shrug BL which is about even. NO tremors. R brick mason is weak and heb is R hand dominant. He can lift both legs off the bed and hold for 5 sec. Good plantar flexion and dorsiflexion with both feet. PERRLA. No faciall droop. No nystagmus. Tracks well and did not have vertigo Psych mental status grossly normal, thought process normal and cooperative Psych Narrative: depressed affect. Not suicidal......his restorationism (Bapt[employer]) feels this is a sinand you will [...] Clarity Clear, Urine pH 5.0, Ur Specific [place] 1.020, Urine Protein 15 H, Urine Glucose [...] completing documentation. Charges/Coding Visit Charges Inpatient E&M: 03372 Init Hosp L3 04/28/24 1519 <Electronically signed [...] MD; Dr. Corazon Wright DO ~* Signed [facility] Work Phone: 1(810) 335-316403-21-2025 History and physical note [facility] Medical Records Department [address] [place] [address] Post Admission Physician Jodie 04/28/24 1241 MR#: [id number] Acct: [id number] Name: MOEYAS Brigido Rep #:[id number] : 1940 83 From: Corazon Wright DO PCP: Dr. Kwabena Menjivar MD Status :ADM IN Location: [place] [address] Admission Information Primary Diagnosis:: DEBILITY DUE TO [...] Skin integrity and Medication Management Patient needs Shipping Services Sales Representative/ Case Management for: Discharge Planning, Arranging Home [...] body bathing and lower body bathing at [facility] with adaptive equipment as needed.) Patient will perform Tub/Shower transfer at: - (Min assist with DME as needed) Patient will complete grooming at: - (Minimal assistance while seated at the sink) Patient will achieve: - (12 steps with 1 handrail to allow access to his 's basement at [facility]. ) Patient will have pain level of: of 3 or less Patient's skin will: remain intact Patient will receive: adequate nutrition. Discharge Planning Pt Prognosis for Sig. Practical Improv. w/in Reasonable Time: Good Estimated Length of stay (days): 28 Anticipated D/C Destination: TBD Was Preadmission Assessment Accurate?: Yes 04/28/24 5829 Cosigner Signature (if applicable): CC: ~ Signed [facility]03-21-2025 History and physical note [facility] Medical Records Department [address] [place] [address] History & Physical Exam 04/28/24 1015 MR#: [id number] Acct: [id number] Name: YAS ROSA Rep #:[id number] : 1940 83 From: Corazon Wright DO PCP: Dr. 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 HPI Juli RSOA, is a 83 YO M with a [...] vertigo. He presented to the ED at [facility] on 04/19/24 after having a fall in [...] prescribed meds at presentation to theemergency department. [facility] Medical History (Updated 04/28/24 @ 15:16 by [...] is subluxed dueto muscle atrophy. 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 R arm falls immediately to the bed when I lift it up. He has some tone in the R triceps, biceps and brachioradialis muscle. Has shoulder shrug BL which is about even. NO tremors.R brick mason is weak and heb is R hand dominant. He can lift both legs off the bed and hold for 5 sec. Good plantar flexion and dorsiflexion with both feet. PERRLA. No faciall droop. No nystagmus. Tracks well and did not have vertigo Psych mental status grossly normal, thought process normal and cooperative Psych Narrative: depressed affect. Not suicidal......his restorationism ([employer]) feels this is a sinand you will [...] Clarity Clear, Urine pH 5.0, Ur Specific [place] 1.020, Urine Protein 15 H, Urine Glucose [...] completing documentation. Charges/Coding Visit Charges Inpatient E&M: 77934 Init Hosp L3 04/28/24 0923 Cosigner Signature (if applicable): CC: Dr. Kwabena [...] MD; Dr. Corazon Wright, DO ~* Signed [facility]03-21-2025 [facility]-2025 Progress note Author Awa Chadwick [facility] Note Date/Time April 27, 2024 7:4 5pm [facility] Medical Records Department [address] [place] [address] Progress Note - Orthopedic 04/27/241938 MR#: [id number] Acct: [id number] Name: YAS ROSA Rep #:[id number] : 1940 83 From: Awa CONTEH PCP: Dr. Kwabena Menjivar MD Status :ADM IN Location: [place] [address] Subjective Subjective Seen with Dr. Diego. Patient [...] reapplied. 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 Work Phone: 1(259) 928-803303-20-2025 Progress note [facility] Medical Records Department [address] [place] [address] Progress Note - Orthopedic 04/27/241938 MR#: [id number] Acct: [id number] Name: YAS ROSA Rep #:[id number] : 1940 83 From: Awa CONTEH PCP: Dr. Kwabena Menjivar MD Status :ADM IN Location: [place] [address] Subjective Subjective Seen with Dr. Diego. Patient [...] reapplied. 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03-20-2025 Discharge summary [facility] Medical Records Department [address] [place] [address] Discharge Summary 04/27/24 1353 MR#: [id number] Acct: [id number] Name: YAS ROSA Rep #:[id number] : 1940 83 From: Harish Schneider PCP: Dr. Kwabena Menjivar MD Status :ADM IN Location: [place] [id number] 1 Providers Date of Admission: 04/20/24 Date [...] fluid was changed in the morning. Has Rolette drain therefore expected drainage. H&H is stable, [...] (Auto) 78.8 H, Lymph % (Auto) 14.3L, Rooks % (Auto) 5.8, Eos % (Auto) 0.0, [...] fluoroscopic images were also obtained. Reading Location: [address] Cervical Spine X-Ray 04/26/24 11:05 IMPRESSION: Intraoperative fluoroscopy performed for anterior cervical discectomy and fusionsurgery. 10 fluoroscopic images were also obtained. Reading Location: [id number] Cervical Spine X-Ray 04/27/24 07:00 IMPRESSION: Osteopenia. [...] Self Care Charges/Coding Visit Charges Inpatient E&M: 49268 Disch Hosp >30min 04/27/24 5927 Cosigner Signature (if applicable): CC: Dr. Kwabena Menjivar MD; Dr. Harish Baxter MD~ Signed [facility]03-20-2025 Discharge summary [facility] Medical Records Department [address] [place] [address] Instructions for Home/Discharge Instructions 04/27/24 1045 MR#: [id number] Acct: [id number] Name: YAS ROSA Rep #:[id number] : 1940 83 From: Harish Schneider PCP: [...] 04/27/24 1353Pjuvenal Baxter MD CC: Dr. Ciro iDego MD; Dr. Kwabena Menjivar MD; Dr. Keanu Alfred DO; Dr.Robert Gretchen MD ~ Signed [facility]03-20-2025 [facility] [place]-20-2025 Discharge summary Author Harish Baxter [facility] Note Date/Time April 27, 2024 1:5 3pm [facility] Medical Records Department [address] [place] [address] Instructions for Home/Discharge Instructions 04/27/24 1045 MR#: [id number] Acct: [id number] Name: YAS ROSA Rep #:[id number] : 1940 83 From: Harish Schneider PCP: [...] Care Provider: Kwabena Menjivar Consulting Providers: Ciro Dieog; Yas Godinez; Keanu Alfred Discharge Orders/Prescriptions Prescriptions: [...] Alfred DO; Dr.Robert Gretchen MD ~ Signed [facility] Work Phone: 1(226) 300-163103-20-2025 Radiology Diagnostic study note [facility] Services [address] [place], [place] [address] Cerv Spine 2 or 3 Views MR#: [id number] Acct: [id number] Name: YAS ROSA Rep #: [id number] : 1940 M 83 From: Oren Narvaez DO PCP: Dr. Kwabena Menjivar MD Status: ADM IN Study:Cerv Spine 2 or 3 Views Date of Exam: 04/27/24 Exam# [id number] Ordering Dr: Cheikh Chadwick PROCEDURE: Cervical spine [...] YADY Hyman; Dr. Kwabena Menjivar MD ~ Nib Inspector: Signed [facility]03-19-2025 Progress note Author Harish Baxter [facility] Note Date/Time April 26, 2024 4:3 5pm [facility] Medical Records Department [address] [place] [address] Progress Note - Hospitalist 04/26/24 1525 MR#: [id number] Acct: [id number] Name: YAS ROSA Rep #:[id number] : 1940 83 From: Harish Schneider PCP: Dr. Kwabena Menjivar MD Status :ADM IN Location: [facility] [id number] Reason for Visit Reason for Visit: [...] % (Auto) 62.4, Lymph % (Auto) 26.4, Rooks% (Auto) 8.2, Eos % (Auto) 2.2, Baso [...] fluoroscopic images were also obtained. Reading Location: [address] Cervical Spine X-Ray 04/26/24 11:05 IMPRESSION: Intraoperative fluoroscopy performed for anterior cervical discectomy and fusionsurgery. 10 fluoroscopic images were also obtained. Reading Location: [address] Physical Exam Narrative Seen and examined [...] dressing soaked with serosanguineous fluid, expected from Rolette drain. Subcutaneous bruise/ecchymosis over left orbital and [...] injury. Suspect BPPV. Dizziness much improved. [facility]. And as needed diazepam. 04/24 [...] with SCDs Charges/Coding Visit Charges Inpatient E&M: 30726 Subs Hosp L2 04/26/24 2310 <Electronically signed by Harish Baxter MD> Cosigner Signature (if applicable): CC: ~ Signed [facility] Work Phone: 1(665) 831-735103-19-2025 Consult note Author Krish Guevara [facility] Note Date/Time April 26, 2024 3:5 1pm [facility] Medical Records Department [address] [place] [address] Anesthesia Postop Eval II 04/26/24 1549 MR#: [id number] Acct: [id number] Name: YAS ROSA Rep #:[id number] : 1940 83 From: Krish Guevara MD PCP: Dr. Kwabena Menjivar MD Status :ADM IN Y Race: C Location: [address] Anesthesia Postop Eval I Sum Postop Eval Completion status Anesthesia document: Postop Eval 1 completed: Yes Anesthesia Postop Eval I Summary Anesthesia Postop Eval I Summary: Anesthesia Postop Eval I: Assessment Summary Airway patent Yes 04/26/24 14:22 PROJECT [email or web address].[email or web address] Spontaneous unlabored Yes 04/26/24 14:22 PROJECT PLANNER.TNES respirations Mental status nausea No 04/26/24 14:22 PROJECT PLANNER.TNES Vomiting No 04/26/24 14:22 PROJECT PLANNER.TNES Anesthesia Postop Eval I: Fluid Summary Crystalloid volume administer 1,400 04/26/24 14:22 PROJECT PLANNER.TNES (ml) Colloids volume administered ( ml) Blood Product volume administered (ml) Total IV fluid infused 1,400 04/26/24 14:22 PROJECT PLANNER.TNES Anesthesia Postop Eval I: Summary Notes Anesthesia Complication No 04/26/24 14:22 PROJECT PLANNER.TNES Anesthesia Complication Comment: Post-operative progress note Anesthesia: Postop Eval II Evaluation Mental status: Awake and Calm Pain Level: 2 nausea: No Vomiting: No Complications Anesthesia Complication: No 04/26/24 1551 <Electronically signed by Krish parada MD> Date _ Krish Guevara MD Cosigner Signature: Date CC: ~ Signed [facility] Work Phone: 1(375) 140-746803-19-2025 Progress note [facility] Medical Records Department [address] [place] [address] Progress Note - Hospitalist 04/26/24 1525 MR#: [id number] Acct: [id number] Name: YAS ROSA Rep #:[id number] : 1940 83 From: Harish Schneider PCP: Dr. Kwabena Menjivar MD Status :ADM IN Location: [place] [address] Reason for Visit Reason for Visit: Diagnoses [...] % (Auto) 62.4, Lymph % (Auto) 26.4, Rooks% (Auto) 8.2, Eos % (Auto) 2.2, Baso [...] fluoroscopic images were also obtained. Reading Location: [address] Cervical Spine X-Ray 04/26/24 11:05 IMPRESSION: Intraoperative fluoroscopy performed for anterior cervical discectomy and fusionsurgery. 10 fluoroscopic images were also obtained. Reading Location: [address] Physical Exam Narrative Seen and examined [...] dressing soaked with serosanguineous fluid, expected from Rolette drain. Subcutaneous bruise/ecchymosis over left orbital and [...] with SCDs Charges/Coding Visit Charges Inpatient E&M: 92258 Subs Hosp L2 04/26/24 1635 Cosigner Signature (if applicable): CC: ~ Signed [facility]03-19-2025 Consult note Author Tl Daniel [facility] Note Date/Time April 26, 2024 2:2 2pm [facility] Medical Records Department [address] [place] [address] Anesthesia Postop Eval I 04/26/241421 MR#: [id number] Acct: [id number] Name: YAS ROSA Rep #:[id number] : 1940 83 From: Tl JHAVERI PCP: Dr. Kwabena Menjivar MD Status :ADM IN Y Race: C Location: [place] [address] Anesthesia: Postop Eval I Current Vital Signs [...] Yes 04/26/241421 <Electronically signed by Tl Daniel PROJECT PLANNER> Date _ Tl Daniel PROJECT PLANNER Cosigner Signature: Date CC: ~ Signed [facility] Work Phone: 1(679) [phone] Consult note [facility] Medical Records Department [address] [place] [address] Anesthesia Postop Eval II 04/26/24 1549 MR#: [id number] Acct: [id number] Name: YAS ROSA Rep #:[id number] : 1940 83 From: Krish Guevara MD PCP: Dr. Kwabena Menjivar MD Status :ADM IN Y Race: C Location: [address] Anesthesia Postop Eval I Sum Postop Eval Completion status Anesthesia document: Postop Eval 1 completed: Yes Anesthesia Postop Eval I Summary Anesthesia Postop Eval I Summary: Anesthesia Postop Eval I: Assessment Summary Airway patent Yes 04/26/24 14:22 PROJECT [email or web address].[email or web address] Spontaneous unlabored Yes 04/26/24 14:22 PROJECT PLANNER.TNES respirations Mental status nausea No 04/26/24 14:22 PROJECT PLANNER.TNES Vomiting No 04/26/24 14:22 PROJECT PLANNER.TNES Anesthesia Postop Eval I: Fluid Summary Crystalloid volume administer 1,400 04/26/24 14:22 PROJECT PLANNER.TNES (ml) Colloids volume administered ( ml) Blood Product volume administered (ml) Total IV fluid infused 1,400 04/26/24 14:22 PROJECT PLANNER.TNES Anesthesia Postop Eval I: Summary Notes Anesthesia Complication No 04/26/24 14:22 PROJECT PLANNER.TNES Anesthesia Complication Comment: Post-operative progress note Anesthesia: Postop Eval II Evaluation Mental status: Awake and Calm Pain Level: 2 nausea: No Vomiting: No Complications Anesthesia Complication: No 04/26/24 1551 tal CABELLO> Date _ Krish Pritchard Signature: Date CC: ~ Signed [facility]03-19-2025 Procedure note [facility] Medical Records Department [address] [place] [address] Operative Report 04/26/24 1425 MR#: [id number] Acct: [id number] Name: YAS ROSA Rep #:[id number] : 1940 83 From: Ciro Diego MD PCP: Dr. 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, stenosis, cord compression withmyelopathy, cord signal changes Post-Operative Diagnosis: Same Surgery/Procedure Performed: C3-6 ACDF iap displays analyst: Yes Tilt Tray Driver: Awa Chadwick Tasks completed by phlebotomist lab assistant: Closing, Removing tissue, Implanting device, Hemostasis: [...] all DRAINS/GRAFTS/IMPLANTS that apply: Drains Drain details: Rolette drain , Graft Graft details: Structural allograft cortical cancellous strut, DBX and Implanted device Implanted device details: Medtronic Matheson Elite plate instrumentation Estimated Blood Loss: 50 cc Specimen collected: No Description of surgery: Preoperative diagnosis: 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 Anesthesia: Gen. endotracheal Estimated blood loss: 50 mL Complications: None Instrumentation used: Medtronic Matheson Elite plate, LASR corticocancellous block Indications: The [...] Disc fragments were removed with the pituitary. Elizabeth pins were placed in C4 and C5 [...] good pullout strength. A 60 mm Medtronic Matheson Elite plate wascontoured for larger lordosis due [...] was again given. Hemostasis was achieved. A Rolette drain was then inserted. Closure was done [...] entire surgery and performed the surgery myself. Croze Machine Operator Awa Chadwick PA-C. My physician assistant mechanic was a vital part of this case. [...] Keanu Alfred DO; Dr.Robert Gretchen MD~ Signed [facility]03-19-2025 Consult note [facility] Medical Records Department [address] [place] [address] Anesthesia Postop Eval I 04/26/241421 MR#: [id number] Acct: [id number] Name: YAS ROSA Rep #:[id number] : 1940 83 From: Tl JHAVERI PCP: Dr. Kwabena Menjivar MD Status :ADM IN Y Race: C Location: [place] [address] 6 Anesthesia: Postop Eval I Current Vital Signs Temperature: 97.7 F Pulse Rate: 66 Blood Pressure: 107/55 Respiratory Rate: 16 Pulse Ox: 94 Assessment Airway patent: Yes Spontaneous unlabored respirations: Yes nausea: No Vomiting: No Anesthesia Complication: No Fluid Hydration Crystalloid volume administer (ml): 1,400 Total IV fluid infused: 1,400 Progress Note Anesthesia document: Postop Eval 1 completed: Yes 04/26/24 142 PROJECT PLANNER> Date _ Tl Pritchard Signature: Date CC: ~ Signed [facility]03-19-2025 Radiology Diagnostic study note [facility] Imaging Services [address] [place], [place] [address] Cerv Spine 2 or 3 Views MR#: [id number] Acct: [id number] Name: YAS ROSA Rep #: [id number] : 1940 M 83 From: Fito Maldonado MD PCP: Dr. Kwabena Menjivar MD Status: ADM IN Study:Cerv Spine 2 or 3 Views Date of Exam: 04/26/24 Exam# [id number] Ordering Dr: Kristine Diego MD PROCEDURE: CERV [...] fluoroscopic images were also obtained. Reading Location: [id number] CC: Dr. Ciro Diego MD; Dr. Kwabena Menjivar MD ~ Nib Inspector: Signed [facility]03-19-2025 Radiology Diagnostic study note [facility] Imaging Services [address] [facility] [facility] [place], [place] [id number] O.R. Fluoro for C-Arm MR#: [id number] Acct: [id number] Name: YAS ROSA Rep #: [id number] : 1940 M 83 From: Fito Maldonado MD PCP: Dr. Kwabena Menjivar MD Status: ADM IN Study:O.R. Fluoro for C-Arm Date of Exam: 04/26/24 Exam# [id number] Ordering Dr: Kristine Diego MD PROCEDURE: CERV [...] fluoroscopic images were also obtained. Reading Location: [address] CC: Dr. Ciro Diego MD; Dr. Kwabena Menjivar MD ~ Nib Inspector: Signed [facility]03-19-2025 Consult note Author Tl Satartia [facility] Note Date/Time April 26, 2024 10: 39am [facility] Medical Records Department [address] [place] [address] Pre-Anesthesia Evaluation 04/26/24 1033 MR#: [id number] Acct: [id number] Name: YAS ROSA Rep #:[id number] : 1940 83 From: Tl JHAVERI PCP: Dr. 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 worker Female HX of Motion Sickness HX of N/V After Surgery Non-Smoker Duration of Surgery greater than 60 minutes Number of Risk Factors PONV Score Height & Weight Height & Weight: Anesthesia: Height & Weight Height 5 ft 8 in 04/26/24 08:40 Weight: 75.6 kg 04/26/24 08:40 Body Mass Index (BMI) 25.3 04/26/24 08:40 Respiratory Assessment Respiratory Assessment - flavor room worker: Respiratory Tract Infection Hx - flavor room worker Hx Respiratory Tract Infection No 04/25/24 21:52 STOP Sleep Apnea STOP Sleep Apnea - flavor room worker: STOP Sleep Apnea - flavor room worker Hx Hypertension No 04/20/24 12:54 Hx Sleep [...] Tobacco Use History Tobacco Use History - flavor room worker: Tobacco Use History - flavor room worker Tobacco Use Smoking Status Former smoker 04/19/24 15:04 Hx Tobacco Use No 04/19/24 15:04 Years Smoking Packs Smoked per Day Smoking Cessation Date was No - quit smoking greater 04/19/24 15:04 within the last 15 years than 15 years ago Hx Smoking Cessation Date 09/08/1968 04/19/24 15:04 Hx Smoking Cessation Counseling Hematologic Medial History Hematologic Hx - flavor room worker: Hematologic Medical Hx - crm developer Hx of Blood Transfusion No 04/19/24 15:04 [...] confused, unrespo /Reproduction History /Reproductive History - flavor room worker: /Reproductive Hx- flavor room worker Hx Now No 04/25/24 21:52 Gestational Age [...] documented. 04/26/24 1039 <Electronically signed by Tl Dainel CRNA> Date _ Tl Daniel CRNA Cosigner Signature: Date CC: ~ Signed [facility] Work Phone: 1(640) 505-551103-19-2025 Consult note Author Tl Satartia [facility] Note Date/Time April 26, 2024 9:4 9am [facility] Medical Records Department [address] [place] [address] Anesthesia Postop Eval I 04/26/24 0949 MR#: [id number] Acct: [id number] Name: YAS ROSA Brigido Rep #:[id number] : 1940 83 From: Tl JHAVERI PCP: Dr. Kwabena Menjivar MD Status :ADM IN Y Race: C Location: [place] [address] Anesthesia: Postop Eval I Current Vital Signs [...] 04/26/24 0949 <Electronically signed by Tl María PROJECT PLANNER> Date _ Tl María PROJECT PLANNER Cosigner Signature: Date CC: ~ Signed [facility] Work Phone: 1(345) 442-189703-19-2025 Progress note Author Ciro Diego [facility] Note Date/Time April 26, 2024 9:4 6am [facility] Medical Records Department [address] [place] [address] Progress Note - Orthopedic 04/26/24 0945 MR#: [id number] Acct: [id number] Name: YAS ROSA Rep #:[id number] : 1940 83 From: Ciro Diego MD PCP: Dr. Kwabena Menjivar MD Status :ADM IN Location: [place] [address] Subjective Subjective Saw patient in preop. Reviewed [...] % (Auto) 62.4, Lymph % (Auto) 26.4, Rooks% (Auto) 8.2, Eos % (Auto) 2.2, Baso % (Auto) 0.1, Absolute Neuts (auto) 5.4, Absolute Lymphs (auto) 2.30, Nucleated RBC % 0, Sodium 136, Potassium 4.5, Chloride 107, Carbon Dioxide 22.8, Anion Gap 6, BUN 20 H, Creatinine 0.83, EstimCreat Clear Calc 66.39, Est GFR (MDRD) Non-Af 87, BUN/Creatinine Ratio 23.4 H, Glucose 91, Calcium 8.2 Charges/Coding Visit Charges Inpatient E&M: 70267 Subs Hosp L1 04/26/24 0946 <Electronically signed by Ciro Diego MD> Cosigner Signature (if applicable): CC: ~ Signed [facility] Work Phone: 1(372) 710-972303-19-2025 Consult note [facility] Medical Records Department [address] [place] [address] Pre-Anesthesia Evaluation 04/26/24 1033 MR#: [id number] Acct: [id number] Name: YAS ROSA Brigido Rep #:[id number] : 1940 83 From: Tl JHAVERI PCP: Dr. 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 worker Female HX of Motion Sickness HX of N/V After Surgery Non-Smoker Duration of Surgery greater than 60 minutes Number of Risk Factors PONV Score Height & Weight Height & Weight: Anesthesia: Height & Weight Height 5 ft 8 in 04/26/24 08:40 Weight: 75.6 kg 04/26/24 08:40 Body Mass Index (BMI) 25.3 04/26/24 08:40 Respiratory Assessment Respiratory Assessment - flavor room worker: Respiratory Tract Infection Hx - flavor room worker Hx Respiratory Tract Infection No 04/25/24 21:52 STOP Sleep Apnea STOP Sleep Apnea - flavor room worker: STOP Sleep Apnea - flavor room worker Hx Hypertension No 04/20/24 12:54 Hx Sleep [...] Tobacco Use History Tobacco Use History - flavor room worker: Tobacco Use History - flavor room worker Tobacco Use Smoking Status Former smoker 04/19/24 15:04 Hx Tobacco Use No 04/19/24 15:04 Years Smoking Packs Smoked per Day Smoking Cessation Date was No - quit smoking greater 04/19/24 15:04 within the last 15 years than 15 years ago Hx Smoking Cessation Date 09/08/1968 04/19/24 15:04 Hx Smoking Cessation Counseling Hematologic Medial History Hematologic Hx - 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 04/26/24 1039 PROJECT PLANNER> Date _ Tl Daniel PROJECT PLANNER Cosigner Signature: Date CC: ~ Signed [facility]03-19-2025 Consult note [facility] Medical Records Department [address] [place] [address] Anesthesia Postop Eval I 04/26/24 0949 MR#: [id number] Acct: [id number] Name: MOEYAS Brigido Rep #:[id number] : 1940 83 From: Tl JHAVERI PCP: Dr. Kwabena Menjivar MD Status :ADM IN Y Race: C Location: [address] Anesthesia: Postop Eval I Current Vital Signs Temperature: 97.4 F Pulse Rate: 67 Blood Pressure: 124/74 Respiratory Rate: 16 Pulse Ox: 98 Assessment Airway patent: Yes Spontaneous unlabored respirations: Yes nausea: No Vomiting: No Anesthesia Complication: No Fluid Hydration Crystalloid volume administer (ml): 1,500 Total IV fluid infused: 1,500 Progress Note Anesthesia document: Postop Eval 1 completed: Yes 04/26/24 0949 PROJECT PLANNER> Date _ Tl Danielsbitt PROJECT PLANNER Cosigner Signature: Date CC: ~ Signed [facility]03-19-2025 Progress note [facility] Medical Records Department [address] [place] [address] Progress Note - Orthopedic 04/26/2445 MR#: [id number] Acct: [id number] Name: YAS ROSA Rep #:[id number] : 1940 83 From: Ciro Diego MD PCP: Dr. Kwabena Menjivar MD Status :ADM IN Location: [place] [address] Subjective Subjective Saw patient in preop. Reviewed [...] % (Auto) 62.4, Lymph % (Auto) 26.4, Rooks% (Auto) 8.2, Eos % (Auto) 2.2, Baso % (Auto) 0.1, Absolute Neuts (auto) 5.4, Absolute Lymphs (auto) 2.30, Nucleated RBC % 0, Sodium 136, Potassium 4.5, Chloride 107, Carbon Dioxide 22.8, Anion Gap 6, BUN 20 H, Creatinine 0.83, EstimCreat Clear Calc 66.39, Est GFR (MDRD) Non-Af 87, BUN/Creatinine Ratio 23.4 H, Glucose 91, Calcium 8.2 Charges/Coding Visit Charges Inpatient E&M: 84098 Subs Hosp L1 04/26/24 0946 Cosigner Signature (if applicable): CC: ~ Signed [facility]03-18-2025 Progress note Author Ana Rosa Howard [facility] Note Date/Time April 25, 2024 9:1 7pm [facility] Medical Records Department [address] [place] [address] Progress Note - Surgery 04/25/24 1432 MR#: [id number] Acct: [id number] Name: YAS ROSA Rep #:[id number] : 1940 83 From: Ana Rosa Ruiz ll DINKEY LOCOMOTIVE ENGINEER DINKEY LOCOMOTIVE ENGINEER-C PCP: Dr. Kwabena Menjivar MD Status :[facility]M IN [facility] <Statement entered by Yas Godinez [...] % (Auto) 60.4, Lymph % (Auto) 30.0, Rooks% (Auto) 7.5, Eos % (Auto) 1.3, Baso [...] <Electronically signed by Ana Rosa Howard NP DINKEY LOCOMOTIVE ENGINEER-C> Cosigner Signature (if applicable): 04/25/242116 <Electronically signed by Yas Godinez MD> CC: ~ Signed [facility] Work Phone: 1(508) 170-936903-18-2025 Progress note [facility] Medical Records Department [address] [place] [address] Progress Note - Surgery 04/25/24 1432 MR#: [id number] Acct: [id number] Name: YAS ROSA Rep #:[id number] : 1940 83 From: Ana Rosa mccall NP DINKEY LOCOMOTIVE ENGINEER-C PCP: Dr. Kwabena Menjivar MD Status :ADM IN Location: [place] [address] I have personally performed a face to [...] % (Auto) 60.4, Lymph % (Auto) 30.0, Rooks% (Auto) 7.5, Eos % (Auto) 1.3, Baso [...] plan of care with Dr. Godinez. 04/25/24 5789 Cosigner Signature (if applicable): 04/25/242116 CC: ~ Signed [facility]03-18-2025 Progress note Author Harish Baxter [facility] Note Date/Time April 25, 2024 2:4 7pm [facility] Medical Records Department [address] [place] [address] Progress Note - Hospitalist 04/25/24 1441 MR#: [id number] Acct: [id number] Name: YAS ROSA Rep #:[id number] : 1940 83 From: Harish Schneider PCP: Dr. Kwabena Menjivar MD Status :ADM IN Location: [place] [address] Reason for Visit Reason for Visit: Diagnoses [...] % (Auto) 60.4, Lymph % (Auto) 30.0, Rooks% (Auto) 7.5, Eos % (Auto) 1.3, Baso [...] with SCDs Charges/Coding Visit Charges Inpatient E&M: 14472 Subs Hosp L2 04/25/24 1447 <Electronically signed by Harish Baxter MD> Cosigner Signature (if applicable): CC: ~ Signed [facility] Work Phone: [phone]) 136-198803-18-2025 Progress note [facility] Medical Records Department [address] [place] [address] Progress Note - Hospitalist 04/25/24 1441 MR#: [id number] Acct: [id number] Name: YAS ROSA Rep #:[id number] : 1940 83 From: Harish Schneider PCP: Dr. Kwabena Menjivar MD Status :ADM IN Location: [place] [address] Reason for Visit Reason for Visit: Diagnoses [...] % (Auto) 60.4, Lymph % (Auto) 30.0, Rooks% (Auto) 7.5, Eos % (Auto) 1.3, Baso [...] with SCDs Charges/Coding Visit Charges Inpatient E&M: 75326 Subs Hosp L2 04/25/24 5457 Cosigner Signature (if applicable): CC: ~ Signed [facility]03-18-2025 Progress note Author Ciro Diego [facility] Note Date/Time April 25, 2024 12: 04pm [facility] Medical Records Department [address] [place] [address] Progress Note - Orthopedic 04/25/24 1200 MR#: [id number] Acct: [id number] Name: YAS ROSA Rep #:[id number] : 1940 83 From: Ciro Diego MD PCP: Dr. Kwabena Menjivar MD Status :ADM IN Location: [place] [address] 1 Subjective Subjective Surgery canceled yesterday due [...] % (Auto) 60.4, Lymph % (Auto) 30.0, Rooks% (Auto) 7.5, Eos % (Auto) 1.3, Baso [...] of upper extremity shows grade 1 finger brick mason, grade 0 finger abduction, grade 4 wrist [...] additional treatment. Charges/Coding Visit Charges Inpatient E&M: 36546 Subs Hosp L3 04/25/24 1209 <Electronically signed by Ciro Diego MD> Cosigner Signature (if applicable): CC: ~ Signed [facility] Work Phone: [phone]) 912-339703-18-2025 Progress note [facility] Medical Records Department [address] [place] [address] Progress Note - Orthopedic 04/25/24 1200 MR#: [id number] Acct: [id number] Name: YAS ROSA Rep #:[id number] : 1940 83 From: Ciro Diego MD PCP: Dr. Kwabena Menjivar MD Status :ADM IN Location: [place] [address]- Subjective Subjective Surgery canceled yesterday due to [...] % (Auto) 60.4, Lymph % (Auto) 30.0, Rooks% (Auto) 7.5, Eos % (Auto) 1.3, Baso [...] of upper extremity shows grade 1 finger brick mason, grade 0 finger abduction, grade 4 wrist [...] additional treatment. Charges/Coding Visit Charges Inpatient E&M: 23906 Subs Hosp L3 04/25/24 1204 Cosigner Signature (if applicable): CC: ~ Signed [facility]03-17-2025 Progress note Author Harish Baxter [facility] Note Date/Time April 24, 2024 2:1 8pm [facility] Medical Records Department [address] [place] [address] Progress Note - Hospitalist 04/24/24 0804 MR#: [id number] Acct: [id number] Name: YAS ROSA Rep #:[id number] : 1940 83 From: Harish Schneider PCP: Dr. Kwabnea Menjivar MD Status :ADM IN Location: [place] [address] Reason for Visit Reason for Visit: Diagnoses [...] % (Auto) 60.3, Lymph % (Auto) 30.5, Rooks% (Auto) 7.9, Eos % (Auto) 0.7, Baso [...] with SCDs Charges/Coding Visit Charges Inpatient E&M: 08250 Subs Hosp L2 04/24/24 7432 <Electronically signed by Harish Baxter MD> Cosigner Signature (if applicable): CC: ~ Signed [facility] Work Phone: 1(737) 412-885903-17-2025 Progress note [facility] Medical Records Department [address] [facility] [place] [address] Progress Note - Hospitalist 04/24/24 0804 MR#: [id number] Acct: [id number] Name: YAS ROSA Rep #:[id number] : 1940 83 From: Harish Schneider PCP: Dr. Kwabena Menjivar MD Status :ADM IN Location: [place] [address] Reason for Visit Reason for Visit: Diagnoses [...] % (Auto) 60.3, Lymph % (Auto) 30.5, Rooks% (Auto) 7.9, Eos % (Auto) 0.7, Baso [...] with SCDs Charges/Coding Visit Charges Inpatient E&M: 82144 Subs Hosp L2 04/24/24 1418 Cosigner Signature (if applicable): CC: ~ Signed [facility]03-16-2025 Progress note Author Keanu Alfred [facility] Note Date/Time April 23, 2024 12: 42pm [facility] Medical Records Department [address] [place] [address] Progress Note - Hospitalist 04/23/24 0834 MR#: [id number] Acct: [id number] Name: YAS ROSA Rep #:[id number] : 1940 83 From: Keanu Alfred DO PCP: Dr. Kwabena Menjivar MD Status :ADM IN Location: [place] [address] Reason for Visit Reason for Visit: Diagnoses [...] for discharge. Charges/Coding Visit Charges Inpatient E&M: 48428 Subs Hosp L2 04/23/24 1242 <Electronically signed by Keanu Alfred DO> Cosigner Signature (if applicable): CC: ~ Signed [facility] Work Phone: 1(223) 118-284903-16-2025 Progress note [facility] Medical Records Department [address] [place] [address] Progress Note - Hospitalist 04/23/24 0834 MR#: [id number] Acct: [id number] Name: YAS ROSA Rep #:[id number] : 1940 83 From: Keanu Alfred DO PCP: Dr. Kwabena Menjivar MD Status :ADM IN Location: [place] [address] Reason for Visit Reason for Visit: Diagnoses [...] for discharge. Charges/Coding Visit Charges Inpatient E&M: 72761 Subs Hosp L2 04/23/24 1242 Cosigner Signature (if applicable): CC: ~ Signed [facility]03-15-2025 Progress note Author Keanu Alfred [facility] Note Date/Time April 22, 2024 1:2 1pm [facility] Medical Records Department [address] [place] [address] Progress Note - Hospitalist 04/22/24 0851 MR#: [id number] Acct: [id number] Name: YAS ROSA Rep #:[id number] : 1940 83 From: Keanu Alfred DO PCP: Dr. Kwabena Menjivar MD Status :ADM IN Location: [place] [address] Reason for Visit Reason for Visit: Diagnoses [...] for discharge. Charges/Coding Visit Charges Inpatient E&M: 50301 Subs Hosp L2 04/22/24 1321 <Electronically signed by Keanu Alfred DO> Cosigner Signature (if applicable): CC: ~ Signed [facility] Work Phone: 1(150) 552-435103-15-2025 Progress note [facility] Medical Records Department [address] [place] [address] Progress Note - Hospitalist 04/22/24 0851 MR#: [id number] Acct: [id number] Name: YAS ROSA Rep #:[id number] : 1940 83 From: Keanu Alfred DO PCP: Dr. Kwabena Menjivar MD Status :ADM IN Location: [place] [address] 1 Reason for Visit Reason for Visit: [...] for discharge. Charges/Coding Visit Charges Inpatient E&M: 88684 Subs Hosp L2 04/22/24 1321 Cosigner Signature (if applicable): CC: ~ Signed [facility]03-14-2025 Consult note Author Ciro Diego [facility] Note Date/Time April 21, 2024 4:3 2pm [facility] Medical Records Department [address] [place] [address] Consultation - Orthopedics 04/21/24 1621 MR#: [id number] Acct: [id number] Name: YAS ROSA Rep #:[id number] : 1940 83 From: Ciro Diego MD PCP: Dr. Kwabena Menjivar MD Status :ADM IN Location: [facility] RCF184- 1 HPI Consult Data Date of Consult: [...] has had tremendous difficulty being independently ambulatory. [facility] Medical History Anxiety Irritable bowel syndrome with [...] of upper extremity shows grade 0 finger brick mason, grade 0 finger abduction, grade 4 wrist [...] in agreement. Charges/Coding Visit Charges Inpatient E&M: 55266 Init Hosp L3 04/21/24 2074 <Electronically signed by Ciro Diego MD> Cosigner Signature (if applicable): CC: Dr. Kwabena Menjivar MD; Dr. Keanu Alfred, DO~ Signed [facility] Work Phone: 1([phone]) [phone] Consult note [facility] Medical Records Department [address] [place] [address] Consultation - Orthopedics 04/21/24 1621 MR#: [id number] Acct: [id number] Name: YAS ROSA Rep #:[id number] : 1940 83 From: Ciro Diego MD PCP: Dr. Kwabena Menjivar MD Status :ADM IN Location: [place] [address] HPI Consult Data Date of Consult: 04/21/24 [...] has had tremendous difficulty being independently ambulatory. [facility] Medical History Anxiety Irritable bowel syndrome with [...] of upper extremity shows grade 0 finger brick mason, grade 0 finger abduction, grade 4 wrist [...] in agreement. Charges/Coding Visit Charges Inpatient E&M: 88531 Init Hosp L3 04/21/24 1632 Cosigner Signature (if applicable): CC: Dr. Kwabena Menjivar MD; Dr. Keanu Alfred DO~ Signed [facility]03-14-2025 Progress note Author Keanu Alfred [facility] Note Date/Time April 21, 2024 1:5 7pm [facility] Medical Records Department [address] [place] [address] Progress Note - Hospitalist 04/21/24829 MR#: [id number] Acct: [id number] Name: YAS ROSA Rep #:[id number] : 1940 83 From: Keanu Alfred DO PCP: Dr. Kwabena Menjivar MD Status :ADM IN Location: [place] [address] Reason for Visit Reason for Visit: Diagnoses [...] with SCDs Charges/Coding Visit Charges Inpatient E&M: 50575 Subs Hosp L2 04/21/24 3014 <Electronically signed by Keanu Alfred DO> Cosigner Signature (if applicable): CC: ~ Signed [facility] Work Phone: 1(266) 436-325903-14-2025 Progress note [facility] Medical Records Department [address] [place] [address] Progress Note - Hospitalist 04/21/24 0830 MR#: [id number] Acct: [id number] Name: YAS ROSA Rep #:[id number] : 1940 83 From: Keanu Alfred DO PCP: Dr. Kwabena Menjivar MD Status :ADM IN Location: [place] [address] Reason for Visit Reason for Visit: Diagnoses [...] with SCDs Charges/Coding Visit Charges Inpatient E&M: 32171 Subs Hosp L2 04/21/24 9224 Cosigner Signature (if applicable): CC: ~ Signed [facility]03-13-2025 Progress note Author Keanu Alfred [facility] Note Date/Time April 20, 2024 1:5 7pm [facility] Medical Records Department [address] [place] [address] Progress Note - Hospitalist 04/20/24 0752 MR#: [id number] Acct: [id number] Name: YAS ROSA Rep #:[id number] : 1940 83 From: Keanu Alfred DO PCP: Dr. Kwabena Menjivar MD Status :ADM IN Location: [place] [address] 1 Reason for Visit Reason for Visit: [...] 83.7 H, Lymph % (Auto) 9.8 L, Rooks % (Auto) 5.7, Eos % (Auto) 0.0, [...] RDW Std Deviation 39.5, RDW Coeff of Delai 12.7, Plt Count 216, MPV 8.9, Immature Gran % (Auto) 0.300, Neut % (Auto) 73.5 H, Lymph % (Auto) 17.6L, Rooks % (Auto) 8.4, Eos % (Auto) 0.1, [...] use of iterative reconstruction technique). Reading Location: [place] [address] Facial/Sinus 04/19/24 10:42 IMPRESSION: Mildly depressed fracture [...] use of iterative reconstruction technique). Reading Location: [place] [place] [address] Head/Neck CTA 04/19/24 10:54 IMPRESSION: RIGHT CAROTID: Unremarkable LEFT CAROTID: Minimal plaque at the origin of the left internal carotid artery. VERTEBRALS: Unremarkable INTRACRANIAL: Unremarkable. One or more dose reduction techniques were used (e.g., Automated exposure control, adjustment of the mA and/or kV according to patient size, use of iterative reconstruction technique). Reading Location: [place] [address] Chest X-Ray 04/19/24 11:20 IMPRESSION: 1. No visible acute cardiopulmonary findings. 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 Consider outpatient CT chest. 2. Additional description as above. Reading Location: [id number] Brain MRI 04/19/24 15:02 IMPRESSION: 1. No acute intracranial abnormality, specifically no evidence of acute ischemia. 2. Mild atrophy and chronic small-vessel ischemic changes. 3. Acute left facial bone fractures better seen and described on recent facial bone CT. Reading Location: [facility] Cervical Spine MRI 04/19/24 15:02 IMPRESSION: 1. 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 2. Acquired mild to severe multilevel foraminal narrowing. See level by level comments above. 3. 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 [facility] Ex[facility] Const alert and no [...] with SCDs Charges/Coding Visit Charges Inpatient E&M: 85633 Subs Hosp L2 04/20/24 1257 <Electronically signed [...] doing CPR be futile. Procedures Hospitalists Procedures: 18222 Advncd Care Plan 30 Min 04/20/24 1357<Electronically signed by Keanu Alfred DO> Cosigner Signature (if applicable): cc: ~* Signed [facility] Work Phone: 1(743) 173-930903-13-2025 Evaluation note* Diagnosis Onset Date Resolution Status [...] 12:54pm Hypertension chronic April 20, 2024 12:54pm [facility] Work Phone: 1(934) 999-371403-13-2025 Evaluation note* Diagnosis Onset Date Resolution Status [...] acute April 27 3:15pm Urinary incontinence acute [facility] 2024 3:15pm Urinary tract infection acute [facility] 2024 3:15pm Urine retention acute April 3:15pm Anxiety and depression chronic [facility] 2024 3:15pm Bilateral arm weakness chronic [facility] 2024 3:15pm Cervical cord myelomalacia chronic April 27, 2024 3:15pm Cervical stenosis of spinal canal chronic April 27, 2024 3:15pm Chronic left shoulder pain chronic April 27, 2024 3:15pm 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 Work Phone: 1(715) 133-485703-13-2025 Evaluation note* Diagnosis Onset Date Resolution Status [...] April 27, 2024 3:15pm Orthostatic hypotension acute [facility] 2024 3:15pm Osteoarthritis acute April 3:15pm Severe dehydration acute April 27, 2024 3:15pm Status post cervical spinal fusion acute April 27, 2024 3:15pm Traumatic brain injury with loss of consciousness acute April 27 3:15pm Urinary incontinence acute [facility] 2024 3:15pm Urine retention acute April 3:15pm Anxiety and depression chronic [facility] 2024 3:15pm Bilateral arm weakness chronic [facility] 2024 3:15pm Chronic left shoulder pain chronic April 27, 2024 3:15pm GERD with esophagitis chronic [facility] 2024 3:15pm History of IBS chronic [...] resolved April 3:15pm Left maxillary fracture resolved [facility] 2024 3:15pm Multiple falls resolved April 3:15pm Urinary tract infection resolved [facility] 2024 3:15pm Cervical myelopathy inactive April 27, 2024 3:15pm Constipation acute May 25, 2024 12:30pm Fecal incontinence acute May 25, 2024 12:30pm [facility] Work Phone: 1([phone]) 105-883003-13-2025 Evaluation note* Diagnosis Onset Date Resolution Status [...] April 27, 2024 3:15pm Orthostatic hypotension acute [facility] 2024 3:15pm Osteoarthritis acute April 3:15pm Severe dehydration acute April 27, 2024 3:15pm Status post cervical spinal fusion acute April 27, 2024 3:15pm Traumatic brain injury with loss of consciousness acute April 27 3:15pm Urinary incontinence acute [facility] 2024 3:15pm Urine retention acute April 3:15pm Anxiety and depression chronic [facility] 2024 3:15pm Bilateral arm weakness chronic [facility] 2024 3:15pm Chronic left shoulder pain chronic April 27, 2024 3:15pm GERD with esophagitis chronic [facility] 2024 3:15pm History of IBS chronic [...] Cervical myelopathy inactive June 01, 2024 3:28pm [facility] Work Phone: 1(203) 921-442703-13-2025 Progress note [facility] Medical Records Department [address] [address] Progress Note - Hospitalist 04/20/24 0752 MR#: [id number] Acct: [id number] Name: YAS ROSA Brigido Rep #:[id number] : 1940 83 From: Keanu Alfred DO PCP: Dr. Kwabena Menjivar MD Status :ADM IN Location: [place] [address] Reason for Visit Reason for Visit: Diagnoses [...] 83.7 H, Lymph % (Auto) 9.8 L, Rooks % (Auto) 5.7, Eos % (Auto) 0.0, [...] (Auto) 73.5 H, Lymph % (Auto) 17.6L, Rooks % (Auto) 8.4, Eos % (Auto) 0.1, [...] use of iterative reconstruction technique). Reading Location: [facility]--1 Facial/Sinus 04/19/24 10:42 IMPRESSION: Mildly depressed [...] use of iterative reconstruction technique). Reading Location: [facility]--1 Head/Neck CTA 04/19/24 10:54 IMPRESSION: RIGHT CAROTID: Unremarkable LEFT CAROTID: Minimal plaque at the origin of the left internal carotid artery. VERTEBRALS: Unremarkable INTRACRANIAL: Unremarkable. One or more dose reduction techniques were used (e.g., Automated exposure control, adjustment of the mA and/or kV according to patient size, use of iterative reconstruction technique). Reading Location: [facility]--1 Chest X-Ray 04/19/24 11:20 IMPRESSION: 1. [...] on recent facial bone CT. Reading [facility] Cervical Spine MRI 04/19/24 15:02 IMPRESSION: 1. 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 2. Acquired mild to severe multilevel foraminal narrowing. See level by level comments above. 3. 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 Reading Location: [facility] Physical Exam Const alert and no apparent [...] with SCDs Charges/Coding Visit Charges Inpatient E&M: 20343 Subs Hosp L2 04/20/24 1257 Cosigner Signature [...] doing CPR be futile. Procedures Hospitalists Procedures: 97279 Advncd Care Plan 30 Min 04/20/24 1357 Cosigner Signature (if applicable): cc: ~* Signed [facility]03-12-2025 Discharge summary Author Laureano [place] [facility] Note Date/Time April 19, 2024 3:2 7pm [facility] Medical Records Department [address] [place] [address] Emergency Department Summary 04/19/24 MR#: [id number] Acct: [id number] Name: YAS ROSA Rep #:[id number] : 1940 83 From: Laureano Colby PCP: Dr. Kwabena Menjivar MD Status :ADM IRINA Location: [place] [address] HPI History of Present Illness Chief Complaint: [...] headache. He does admit to neck pain. [facility] Medical History Irritable bowel syndrome with [...] 83.7 H Lymph % (Auto) 9.8 L Rooks % (Auto) 5.7 Eos % (Auto) 0.0 [...] use of iterative reconstruction technique). Reading Location: [facility] Facial/Sinus 04/19/24 10:42 IMPRESSION: Mildly depressed fracture [...] use of iterative reconstruction technique). Reading Location: [place] [address] Head/Neck CTA 04/19/24 10:54 IMPRESSION: RIGHT CAROTID: Unremarkable LEFT CAROTID: Minimal plaque at the origin of the left internal carotid artery. VERTEBRALS: Unremarkable INTRACRANIAL: Unremarkable. One or more dose reduction techniques were used (e.g., Automated exposure control, adjustment of the mA and/or kV according to patient size, use of iterative reconstruction technique). Reading Location: [place] [address] Chest X-Ray 04/19/24 11:20 IMPRESSION: 1. No visible acute cardiopulmonary findings. 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 Consider outpatient CT chest. 2. Additional description as above. Reading Location: [id number] EKG Initial EKG: Attestation: I personally reviewed and interpreted this EKG as follows: Comments: Normal sinus rhythm ventricular rate of 69 bpm Management Discussion w/another healthcare provider: Hospitalist (Dr Alfred) and Medical Staff Director (Dr Godinez) Discharge Plan Dx/Rx/DC Orders Clinical Impression: Fall, Closed fracture of left maxillary sinus, Epistaxis, Chronic left shoulderpain, Hypertension, Subconjunctival hemorrhage Disposition Disposition: Acute Care Hospital [facility] NIHSS NIHSS 1a. Level of Consciousness: Alert; [...] your Primary Care Provider. Call [facility] ([phone]) or report to the closest Emergency Room. Call 911 if necessary. 04/19/24 1527 <Electronically signed by Laureano Gallagher DO> Cosigner Signature (if applicable): CC: Dr. Kwabena Menjivar MD ~ Signed [facility] Work Phone: 1(616) 780-196703-12-2025 Consult note Author [facility] Note Date/Time April 19, 2024 3:1 8pm [facility] Medical Records Department [address] [place] [address] Consultation - Surgical 04/19/24 1140 MR#: [id number] Acct: [id number] Name: YAS ROSA Rep #:[id number] : 1940 83 From: Yas Godinez MD PCP: Dr. Kwabena Menjivar MD Status :ADM IRINA Location: [place] [address]- Assessment & Plan Assessment/Plan (1) Maxillary fracture, [...] a few weeks ago with another fall. [facility] Medical History Anxiety Irritable bowel syndrome with [...] 83.7 H, Lymph % (Auto) 9.8 L, Rooks % (Auto) 5.7, Eos % (Auto) 0.0, [...] use of iterative reconstruction technique). Reading Location: [facility] Facial/Sinus 04/19/24 10:42 IMPRESSION: Mildly depressed [...] use of iterative reconstruction technique). Reading Location: [facility] Head/Neck CTA 04/19/24 10:54 IMPRESSION: RIGHT CAROTID: Unremarkable LEFT CAROTID: Minimal plaque at the origin of the left internal carotid artery. VERTEBRALS: Unremarkable INTRACRANIAL: Unremarkable. One or more dose reduction techniques were used (e.g., Automated exposure control, adjustment of the mA and/or kV according to patient size, use of iterative reconstruction technique). Reading Location: [facility]- Chest X-Ray 04/19/24 11:20 IMPRESSION: 1. No visible acute cardiopulmonary findings. 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 Consider outpatient CT chest. 2. Additional description as above. Reading Location: [id number] Charges/Coding Multi Select Codes Visit Charges Office Visit/Consults: 30152 OV L5 New 60min 04/19/24 1518 <Electronically signed by Yas Godinez MD> Cosigner Signature (if applicable): CC: Dr. Kwabena Menjivar MD~ Signed [facility] Work Phone: 1(305) 285-845203-12-2025 History and physical note Author Keanu Alfred [facility] Note Date/Time April 19, 2024 2:0 4pm [facility] Medical Records Department [address] [place] [address] H&P Exam - Hospitalist 04/19/24 1323 MR#: [id number] Acct: [id number] Name: YAS ROSA Rep #:[id number] : 1940 83 From: Keanu Alfred DO PCP: Dr. Kwabena Menjivar MD Status :ADM IRINA Location: [facility] [id number]- [id number] HPI - General General Date of [...] he has not seen the surgeon yet. [facility] Medical History (Updated 04/19/24 @ 13:32 by [...] 83.7 H, Lymph % (Auto) 9.8 L, Rooks % (Auto) 5.7, Eos % (Auto) 0.0, [...] use of iterative reconstruction technique). Reading Location: [facility]-1 Facial/Sinus 04/19/24 10:42 IMPRESSION: Mildly depressed [...] use of iterative reconstruction technique). Reading Location: [facility]-1 Head/Neck CTA 04/19/24 10:54 IMPRESSION: RIGHT CAROTID: Unremarkable LEFT CAROTID: Minimal plaque at the origin of the left internal carotid artery. VERTEBRALS: Unremarkable INTRACRANIAL: Unremarkable. One or more dose reduction techniques were used (e.g., Automated exposure control, adjustment of the mA and/or kV according to patient size, use of iterative reconstruction technique). Reading Location: [facility]-1 Chest X-Ray 04/19/24 11:20 IMPRESSION: 1. No visible acute cardiopulmonary findings. 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 Consider outpatient CT chest. 2. Additional description as above. Reading Location: [id number] Assessment & Plan Assessment/Plan (1) Syncope: PLAN: [...] hospitalist I have informed ED RN and household appliances salesperson that patient will need to be seen [...] until Wednesday. Charges/Coding Visit Charges Inpatient E&M: 03104 Init Hosp L3 04/19/24 1404 <Electronically signed by Keanu Alfred DO> Cosigner Signature (if applicable): CC: Dr. Kwabena Menjivar MD; Dr. Keanu Alfred DO~ Signed [facility] Work Phone: 1(990) 280-687403-12-2025 Discharge summary [facility] Medical Records Department [address] [place] [address] Emergency Department Summary 04/19/24 MR#: [id number] Acct: [id number] Name: YSA ROSA Rep #:[id number] : 1940 83 From: Laureano Colby PCP: Dr. Kwabena Menjivar MD Status :ADM IRINA Location: [address] History of Present Illness Chief Complaint: [...] headache. He does admit to neck pain. [facility] Medical History Irritable bowel syndrome with [...] 83.7 H Lymph % (Auto) 9.8 L Rooks % (Auto) 5.7 Eos % (Auto) 0.0 [...] use of iterative reconstruction technique). Reading Location: [facility]--1 Facial/Sinus 04/19/24 10:42 IMPRESSION: Mildly depressed [...] use of iterative reconstruction technique). Reading Location: [facility]--1 Head/Neck CTA 04/19/24 10:54 IMPRESSION: RIGHT CAROTID: Unremarkable LEFT CAROTID: Minimal plaque at the origin of the left internal carotid artery. VERTEBRALS: Unremarkable INTRACRANIAL: Unremarkable. One or more dose reduction techniques were used (e.g., Automated exposure control, adjustment of the mA and/or kV according to patient size, use of iterative reconstruction technique). Reading Location: [facility] Chest X-Ray 04/19/24 11:20 IMPRESSION: 1. No visible acute cardiopulmonary findings. 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 Consider outpatient CT chest. 2. Additional description as above. Reading Location: [facility] EKG Initial EKG: Attestation: I personally reviewed and interpreted this EKG as follows: Comments: Normal sinus rhythm ventricular rate of 69 bpm Management Discussion w/another healthcare provider: Hospitalist (Dr Alfred) and Medical Staff Director (Dr Godinez) Discharge Plan Dx/Rx/DC Orders Clinical Impression: Fall, Closed fracture of left maxillary sinus, Epistaxis, Chronic left shoulderpain, Hypertension, Subconjunctival hemorrhage Disposition Disposition: Acute Care Hospital [facility] NIHSS NIHSS 1a. Level of Consciousness: Alert; [...] your Primary Care Provider. Call [facility] ([phone]) or report tothe closest Emergency Room. Call 911 if necessary. 04/19/24 1527 Cosigner Signature (if applicable): CC: Dr. Kwabena Menjivar MD ~ Signed [facility]03-12-2025 Consult note [facility] Medical Records Department [address] [place] [address] Consultation - Surgical 04/19/24 1140 MR#: [id number] Acct: [id number] Name: YAS ROSA Rep #:[id number] : 1940 83 From: Yas Godinez MD PCP: Dr. Kwabena Menjivar MD Status :ADM [facility] Location: [place] [address] Assessment & Plan Assessment/Plan (1) Maxillary fracture, [...] a few weeks ago with another fall. [facility] Medical History Anxiety Irritable bowel syndrome with [...] 83.7 H, Lymph % (Auto) 9.8 L, Rooks % (Auto) 5.7, Eos % (Auto) 0.0, [...] use of iterative reconstruction technique). Reading Location: [facility]-1 Facial/Sinus 04/19/24 10:42 IMPRESSION: Mildly depressed [...] use of iterative reconstruction technique). Reading Location: [facility] Head/Neck CTA 04/19/24 10:54 IMPRESSION: RIGHT CAROTID: Unremarkable LEFT CAROTID: Minimal plaque at the origin of the left internal carotid artery. VERTEBRALS: Unremarkable INTRACRANIAL: Unremarkable. One or more dose reduction techniques were used (e.g., Automated exposure control, adjustment of the mA and/or kV according to patient size, use of iterative reconstruction technique). Reading Location: [facility] Chest X-Ray 04/19/24 11:20 IMPRESSION: 1. No visible acute cardiopulmonary findings. 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 Consider outpatient CT chest. 2. Additional description as above. Reading Location: [facility] Charges/Coding Multi Select Codes Visit Charges Office Visit/Consults: 88196 OV L5 New 60min 04/19/24 1518 Cosigner Signature (if applicable): CC: Dr. Kwabena Menjivar MD~ Signed [facility]03-12-2025 History and physical note [facility] Medical Records Department [address] [place] [address] H&P Exam - Hospitalist 04/19/24 1323 MR#: [id number] Acct: [id number] Name: YAS ROSA Rep #:[id number] : 1940 83 From: Keanu Alfred DO PCP: Dr. Kwabena Menjivar MD Status :ADM IRINA Location: [facility] [id number]- 1 HPI - General General Date of Admission: 04/19/24 Date of Service: 04/19/24 Chief Complaint: fall. HPI Narrative YAS ROAS, is a 83 M who presents with [...] he has not seen the surgeon yet. [facility] Medical History (Updated 04/19/24 @ 13:32 by [...] 83.7 H, Lymph % (Auto) 9.8 L, Rooks % (Auto) 5.7, Eos % (Auto) 0.0, [...] use of iterative reconstruction technique). Reading Location: [facility]-1 Facial/Sinus 04/19/24 10:42 IMPRESSION: Mildly depressed [...] use of iterative reconstruction technique). Reading Location: [facility]--1 Head/Neck CTA 04/19/24 10:54 IMPRESSION: RIGHT CAROTID: Unremarkable LEFT CAROTID: Minimal plaque at the origin of the left internal carotid artery. VERTEBRALS: Unremarkable INTRACRANIAL: Unremarkable. One or more dose reduction techniques were used (e.g., Automated exposure control, adjustment of the mA and/or kV according to patient size, use of iterative reconstruction technique). Reading Location: [facility] Chest X-Ray 04/19/24 11:20 IMPRESSION: 1. No visible acute cardiopulmonary findings. 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 Consider outpatient CT chest. 2. Additional description as above. Reading Location: [facility] Assessment & Plan Assessment/Plan (1) Syncope: [...] hospitalist I have informed ED RN and household appliances salesperson that patient will need to be seen [...] until Wednesday. Charges/Coding Visit Charges Inpatient E&M: 95800 Init Hosp L3 04/19/24 1404 Cosigner Signature (if applicable): CC: Dr. Kwabena Menjivar MD; Dr. Keanu Alfred, ~ Signed [facility]03-12-2025 Radiology Diagnostic study note [facility] [address] [place], [place] [id number] Chest 1 View MR#: [id number] Acct: [id number] Name: YAS ROSA Rep #: [id number] : 1940 M 83 From: Aura Andersen MD PCP: Dr. Kwabena Menjivar MD Status: REG ER Study:Chest 1 View Date of Exam: 5 Exam# [id number] Ordering Dr: Jennie Gallagher DO PROCEDURE: CHEST [...] 2. Additional description as above. Reading Location: [facility] CC: Dr. Kwabena Menjivar MD; Dr. Laureano Gallagher DO ~ Nib Inspector: Signed [facility]03-12-2025 Radiology Diagnostic study note [facility] [address] [place] [address] [id number] STROKE CTA Head AND Neck W/Con MR#: [id number] Acct: [id number] Name: YAS ROSA Rep #: [id number] : 1940 83 From: Ag Luna MD PCP: Dr. Kwabena Menjivar MD Status: [facility] ER Study:STROKE CTA Head AND Neck W/Con Date of Exam: 04/19/24 Exam# [id number] Ordering Dr: Jennie Gallagher DO PROCEDURE: STROKE [...] use of iterative reconstruction technique). Reading Location: [place] [address] CC: Dr. Kwabena Menjivar MD; Dr. Laureano Gallagher DO ~ Nib Inspector: Signed [facility]03-12-2025 Radiology Diagnostic study note [facility] [address] [place] [address] Sinus/Facial Bone MR#: [id number] Acct: [id number] Name: YAS ROSA Rep #: [id number] : 1940 M 83 From: Ag Luna MD PCP: Dr. Kwabena Menjivar MD Status: REG ER Study:Sinus/Facial Bone Date of Exam: Exam# [id number] Ordering Dr: Jennie Gallagher DO PROCEDURE: SINUS/FACIAL [...] use of iterative reconstruction technique). Reading Location: [place] [address] CC: Dr. Kwabena Menjivar MD; Dr. Laureano Gallagher DO ~ Nib Inspector: Signed [facility]03-12-2025 Radiology Diagnostic study note [facility] [address] [place] [address] [id number] STROKE Brain/Head without Cont MR#: [id number] Acct: [id number] Name: YAS ROSA Rep #: [id number] : 1940 M 83 From: Ag Luna MD PCP: Dr. Kwabena Menjivar MD Status: REG ER Study:STROKE Brain/Head without Cont Date of Exam: 04/19/24 Exam# [id number] Ordering Dr: Jennie Gallagher DO PROCEDURE: STROKE [...] use of iterative reconstruction technique). Reading Location: [place] [address] CC: Dr. Kwabena Menjivar MD; Dr. Laureano Gallagher DO ~ Nib Inspector: Signed [facility]09-06-2023 Discharge summary Author Keanu Holt [facility] October 14, 2022 10:45am Note Date/Time October 14, 2022 10:45am [facility] Physical Therapy [facility] [address] [place] [address] / REHABILITATION SERVICES DISCHARGE SUMMARY MR#: [id number] Acct: [id number] Name: YAS ROSA Rep #: [id number] : 1940 81 From: Keanu Holt DPT, [...] please feel free to call me at [phone]. Thank you for the referral of thispatient. Sincerely, Keanu Holt DPT, GINA, NIA Balance/Gait/Functional tests Balance/Special Test Scores Oswestry Neck Score: 31 Quick DASH Score: 38.6350 Improvement % Improvement: 10 <Electronically signed by GINA Arguello DPT, CSCS> 10/14/22 1045 CC: Dr. William Menjivar MD ~ EBG Signed [facility] Work Phone: 1(914) 655-121202-09-2021 NotePatient Outreach (COVAMN) YAS ROSA ([id number]) 1940 M Date Time Provider Department 03/19/20 [...] Fully Assessed Order(s):SARS-COVID VACCINE 1ST DOSE APPT [[id number]] Order #: [id number] FUTURE Prescriptions as of 03/19/2020 Sig: ESCITALOPRAM [...] Text Encounter Status:Closed by EPIC, PRODUSER on 03/22/20[facility] Discharge summary Author [facility] Note Date/Time April 27, 2024 1:5 7pm [facility] Medical Records Department [address] [place] [address] Discharge Summary 04/27/24 1353 MR#: [id number] Acct: [id number] Name: YAS ROSA Rep #:[id number] : 1940 83 From: Harish Schneider PCP: Dr. Kwabena Menjivar MD Status :ADM IN Location: [facility] [id number] Providers Date of Admission: 04/20/24 Date [...] fluid was changed in the morning. Has Rolette drain therefore expected drainage. H&H is stable, [...] (Auto) 78.8 H, Lymph % (Auto) 14.3L, Rooks % (Auto) 5.8, Eos % (Auto) 0.0, [...] fluoroscopic images were also obtained. Reading Location: [address] Cervical Spine X-Ray 04/26/24 11:05 IMPRESSION: Intraoperative fluoroscopy performed for anterior cervical discectomy and fusionsurgery. 10 fluoroscopic images were also obtained. Reading Location: [address] Cervical Spine X-Ray 04/27/24 07:00 IMPRESSION: Osteopenia. Interval placement of a metallic fixation plate at the anterior margin of C3-C6. Interval placement of interbody spacer devices at C3-4, C4-5, and C5-6. No acute bony abnormality of the cervical spine. Similar moderate/severe degenerative disc disease at C6-7. [facility] Discharge Diet: Light diet [...] Self Care Charges/Coding Visit Charges Inpatient E&M: 37014 Disch Hosp >30min 04/27/24 1357 <Electronically signed by Harish Baxter MD> Cosigner Signature (if applicable): CC: Dr. Kwabena Menjivar MD; Dr. Harish Baxter MD~ Signed [facility] Work Phone: Evaluation noteNo assessment information available [facility] Work Phone: Evaluation note* Diagnosis Onset Date [...] 12:44pm Hypertension chronic April 19, 2024 12:44pm [facility] Work Phone: Reason for referral (narrative)No reason for referral [facility] Work Phone: Summary Purpose Family History No Family History Records Found Relationship Condition Age at Onset Recorded Date/T adia Not Specified Hypertension Unknown father Cardiac disease Unknown Advance Directives No Advanced Directives Records Found Advance Directive Response Recorded Date/ Time Living Will No November 11 8:37am Power of Tanning Wheel Operator No November 11 8:37am Advance Directive Response Recorded Date/ Time Living Will No February 25 11:01am Power of Tanning Wheel Operator No February 26, 2024 11:01am Living Will Yes April 19, 2024 11:02am Power of Tanning Wheel Operator Yes April 19 11:02am Name of Medical Power of Tanning Wheel Operator ? April 19, 2024 11:02am Advance Directive Response Recorded Date/ Time Living Will No February 25 11:01am Do you have a Healthcare Power of Tanning Wheel Operator? No February 26, 2024 11:01am Living Will Yes April 26, 2024 3:54pm Do you have a Healthcare Power of Tanning Wheel Operator? Yes April 26, 2024 3:54pm Name of Medical Power of Tanning Wheel Operator ? April 26, 2024 3:54pm Advance Directive Response Recorded Date/ Time Living Will No February 25 11:01am Do you have a Healthcare Power of Tanning Wheel Operator? No February 26, 2024 11:01am Living Will Yes April 29, 2024 5:19pm Do you have a Healthcare Power of Tanning Wheel Operator? Yes April 29, 2024 5:19pm Name of Medical Power of Tanning Wheel Operator RIVERA ROSA April 29, 2024 5:19pm Living Will Yes April 26, 2024 3:54pm Do you have a Healthcare Power of Tanning Wheel Operator? Yes April 26, 2024 3:54pm Name of Medical Power of Tanning Wheel Operator ? April 26, 2024 3:54pm Advance Directive Response Recorded Date/ Time Living Will Yes April 29, 2024 5:19pm Do you have a Healthcare Power of Tanning Wheel Operator? Yes April 29, 2024 5:19pm Name of Medical Power of Tanning Wheel Operator RIVERA ROSA April 29, 2024 5:19pm Living Will Yes April 26, 2024 3:54pm Do you have a Healthcare Power of Tanning Wheel Operator? Yes April 26, 2024 3:54pm Name of Medical Power of Tanning Wheel Operator ? April 26, 2024 3:54pm Chief [...] 1:5 3pm SPINCAL CORD COMPRESSION W MYELOPATHY [facility] 2024 3:15pm SPINCAL CORD COMPRESSION W MYELOPATHY [facility] 2024 7:39pm SPINCAL CORD COMPRESSION W MYELOPATHY [facility] 2024 10:15am Arrhythmia April 30, 2024 5:0 6pm SPINCAL CORD COMPRESSION W MYELOPATHY [facility] 2024 12:34pm SPINCAL CORD COMPRESSION W MYELOPATHY [facility] 2024 12:36pm SPINCAL CORD COMPRESSION W MYELOPATHY [facility] 2024 12:27pm SPINCAL CORD COMPRESSION W MYELOPATHY [facility] 2024 11:03am SPINCAL CORD COMPRESSION W MYELOPATHY [facility] 2024 9:56am SPINCAL CORD COMPRESSION W [...] 025 3:15pm Foraminal stenosis of cervical region [facility] 2024 3:15pm GERD with esophagitis April [...] 1:5 3pm SPINCAL CORD COMPRESSION W MYELOPATHY [facility] 2024 3:15pm SPINCAL CORD COMPRESSION W MYELOPATHY [facility] 2024 7:39pm SPINCAL CORD COMPRESSION W MYELOPATHY [facility] 2024 10:15am Arrhythmia April 30, 2024 5:0 6pm SPINCAL CORD COMPRESSION W MYELOPATHY [facility] 2024 12:34pm SPINCAL CORD COMPRESSION W MYELOPATHY [facility] 2024 12:36pm SPINCAL CORD COMPRESSION W MYELOPATHY [facility] 2024 12:27pm SPINCAL CORD COMPRESSION W MYELOPATHY [facility] 2024 11:03am SPINCAL CORD COMPRESSION W MYELOPATHY [facility] 2024 9:56am SPINCAL CORD COMPRESSION W [...] 3:1 5pm GERD (gastroesophageal reflux disease) [facility] 2024 3:15pm Muscle spasm April 27, 2024 [...] 3:1 5pm Postural dizziness with near syncope [facility] 2024 3:15pm Urinary hesitancy April 27, 2024 [...] 1:5 3pm SPINCAL CORD COMPRESSION W MYELOPATHY [facility] 2024 3:15pm SPINCAL CORD COMPRESSION W MYELOPATHY [facility] 2024 7:39pm SPINCAL CORD COMPRESSION W MYELOPATHY [facility] 2024 10:15am Arrhythmia April 30, 2024 5:0 6pm SPINCAL CORD COMPRESSION W MYELOPATHY [facility] 2024 12:34pm SPINCAL CORD COMPRESSION W MYELOPATHY [facility] 2024 12:36pm SPINCAL CORD COMPRESSION W MYELOPATHY [facility] 2024 12:27pm SPINCAL CORD COMPRESSION W MYELOPATHY [facility] 2024 11:03am SPINCAL CORD COMPRESSION W MYELOPATHY [facility] 2024 9:56am SPINCAL CORD COMPRESSION W [...] 3:1 5pm Postural dizziness with near syncope [facility] 2024 3:15pm Urinary hesitancy April 27, 2024 [...] 2024 3:15pm Foraminal stenosis of cervical region [facility] 2024 3:15pm Laryngeal edema April 27, [...] 1:5 3pm SPINCAL CORD COMPRESSION W MYELOPATHY [facility] 2024 3:15pm SPINCAL CORD COMPRESSION W MYELOPATHY [facility] 2024 7:39pm SPINCAL CORD COMPRESSION W MYELOPATHY [facility] 2024 10:15am Arrhythmia April 30, 2024 5:0 6pm SPINCAL CORD COMPRESSION W MYELOPATHY [facility] 2024 12:34pm SPINCAL CORD COMPRESSION W MYELOPATHY [facility] 2024 12:36pm SPINCAL CORD COMPRESSION W MYELOPATHY [facility] 2024 12:27pm SPINCAL CORD COMPRESSION W MYELOPATHY [facility] 2024 11:03am SPINCAL CORD COMPRESSION W MYELOPATHY [facility] 2024 9:56am SPINCAL CORD COMPRESSION W [...] 1:5 3pm SPINCAL CORD COMPRESSION W MYELOPATHY [facility] 2024 3:15pm SPINCAL CORD COMPRESSION W MYELOPATHY [facility] 2024 7:39pm SPINCAL CORD COMPRESSION W MYELOPATHY [facility] 2024 10:15am Arrhythmia April 30, 2024 5:0 6pm SPINCAL CORD COMPRESSION W MYELOPATHY [facility] 2024 12:34pm SPINCAL CORD COMPRESSION W MYELOPATHY [facility] 2024 12:36pm SPINCAL CORD COMPRESSION W MYELOPATHY [facility] 2024 12:27pm SPINCAL CORD COMPRESSION W MYELOPATHY [facility] 2024 11:03am SPINCAL CORD COMPRESSION W MYELOPATHY [facility] 2024 9:56am SPINCAL CORD COMPRESSION W [...] 1:5 3pm SPINCAL CORD COMPRESSION W MYELOPATHY [facility] 2024 3:15pm SPINCAL CORD COMPRESSION W MYELOPATHY [facility] 2024 7:39pm SPINCAL CORD COMPRESSION W MYELOPATHY [facility] 2024 10:15am Arrhythmia April 30, 2024 5:0 6pm SPINCAL CORD COMPRESSION W MYELOPATHY [facility] 2024 12:34pm SPINCAL CORD COMPRESSION W MYELOPATHY [facility] 2024 12:36pm SPINCAL CORD COMPRESSION W MYELOPATHY [facility] 2024 12:27pm SPINCAL CORD COMPRESSION W MYELOPATHY [facility] 2024 11:03am SPINCAL CORD COMPRESSION W MYELOPATHY [facility] 2024 9:56am SPINCAL CORD COMPRESSION W [...] 1:5 3pm SPINCAL CORD COMPRESSION W MYELOPATHY [facility] 2024 3:15pm SPINCAL CORD COMPRESSION W MYELOPATHY [facility] 2024 7:39pm SPINCAL CORD COMPRESSION W MYELOPATHY [facility] 2024 10:15am Arrhythmia April 30, 2024 5:0 6pm SPINCAL CORD COMPRESSION W MYELOPATHY [facility] 2024 12:34pm SPINCAL CORD COMPRESSION W MYELOPATHY [facility] 2024 12:36pm SPINCAL CORD COMPRESSION W MYELOPATHY [facility] 2024 12:27pm SPINCAL CORD COMPRESSION W MYELOPATHY [facility] 2024 11:03am SPINCAL CORD COMPRESSION W MYELOPATHY [facility] 2024 9:56am SPINCAL CORD COMPRESSION W [...] section and content) DATE CREATED AUTHOR 08/04/2017 [facility] ([place]) DATE CREATED AUTHOR AUTHOR'S ORGANIZ ATION 03/11/2021 [facility] DATE CREATED AUTHOR AUTHOR'S ORGANIZ ATION [facility] Care Teams (unrecognized sec tion and [...] rt: April 25, 2024 Ana Rosa Howard DINKEY LOCOMOTIVE ENGINEER, DINKEY LOCOMOTIVE ENGINEER-C Attending Provider Active Start: April 25, 2024 Team Status: Active Member Role Status Dates Dr. Kwabena Menjivar MD Primary Care Provider Acti ve Start: April 25, 2024 Dr. Laureano Gallagher DO Emergency Provider Active Start: April 25, 2024 Dr. Kaenu Alfred DO Admit Provider Active Star t: [...] Active Member Role Status Dates Dr. William Menjiavr MD Family Provider Active Dr. William Menjivar MD Primary Care Provider Activ e Team Status: Inactive Member Role Status Dates Dr. William Menjivar MD Primary Care Provider, Attending Provider, Referring Provider Active Team Status: Inactive Member Role Status Dates Dr. William Menjivar MD Primary Care Provider, Atte nding Provider Active Team Status: Inactive Member Role Status Dates Dr. Kwaebna Menjivar MD Primary Care Provider Acti ve [...] Active Star t: April 19, 2024 Dr. aYs Godinez MD Attending Provider Active Start: April [...] Active Star t: April 21, 2024 Dr. Crio Diego MD Attending Provider Active Start: April [...] BE BASED ON THE PRIMARY CLINICAL RECORDS. [facility]. provides no warranty or guarantee of the accuracy or completeness of information in this document.
--- NOTE | 2024-08-05 15:43 | PCM.HP.STD ---
HPI - General General Date of Admission: 08/05/24 Date of Service: 08/05/24 Chief Complaint: Generalized weakness, lightheaded on standing HPI Narrative YAS ROSA, is a 83-year-old male history of anxiety, IBS, depression, GERD, cervical myelopathy with surgery in April presented [facility] ED 08/05/2024 with complaint of worsening generalized weakness as well as some intermittent lightheadedness that has been present since surgery. He feels very weak and has difficulty lifting his walker even with the weakness. Also reports constipation for the past 4 days. In the ED temp 98.5 with heart rate 78, SBP 135/104 w/ RR 18 and pulse ox 100% on RA, orthostats were found to be positive. White blood cell count within normal limits, hemoglobin 12.3, platelets 208. Lactic acid 1.3 and CMP unremarkable. Given patient's generalized weakness and orthostatic vital signs positive hospitalist contacted for admission. Patient evaluated family members at bedside, patient has been home from [place] for the past couple weeks but has had difficulties with lightheaded on standing intermittently despite being started on midodrine and feeling generally weak which has been present since surgery but has been slowly worsening, also intermittently gets cramps on his left side. Patient has chronic residual left upper extremity deficits and reports he has tingling all over with neuropathy. Did start taking gabapentin earlier this week. Also has been having difficulty with food sticking and does report constipation as above with no nausea or abdominal pain. No chest pain or shortness of breath, no fever headache. No other new acute complaints [facility] Medical History Cervical myelopathy Angiectasia of large intestine History of gastric polyp GERD with esophagitis Postural dizziness with near syncope Bilateral arm weakness Osteoarthritis Anxiety and depression Ventral hernia Loss of hearing Wears glasses Wears dentures Alcohol use History of IBS Heartburn Former smoker History of stress test Home Medications ?Medication ?Instructions ?Recorded ?Last Taken ?Type sennosides 8.6 mg-docusate sodium 2 tab PO BID laxative #0 tabs 04/27/24 Unknown Rx 50 mg tablet (Stimulant Laxative Plus) benzocaine 15 mg-menthol 3.6 mg 1 juliet mucous membrane Q2H PRN PRN 05/18/24 Unknown Rx lozenges (Sore Throat (benzocaine SORE THROAT #0 ea with menthol)) bisacodyl 10 mg rectal suppository 10 mg PA X1 PRN Constipation #0 ea 05/18/24 Unknown Rx carboxymethylcellulose sodium 0.5 2 drp EACH EYE Q1H PRN DRY EYES #0 05/18/24 Unknown Rx % eye drops (Refresh Tears) mL food supplemt, lactose-reduced 120 ml PO 4X/DAY #0 mL 05/18/24 Unknown Rx 0.08 gram-1.5 kcal/mL oral liquid (Ensure Plus High Protein) gabapentin 100 mg capsule 100 mg PO BIDCM #0 caps 05/18/24 Unknown Rx magnesium hydroxide 400 mg/5 mL 30 ml PO X1 PRN Constipation #0 mL 05/18/24 Unknown Rx oral suspension menthol 0.44 %-zinc oxide 20.6 % 1 applic topical BID #0 grams 05/18/24 Unknown Rx topical ointment (Calmoseptine) midodrine 5 mg tablet 10 mg (2 x 5 mg) PO 0700,1100,1500 05/18/24 Unknown Rx #0 tabs mirtazapine 15 mg tablet 15 mg PO QHS #0 tabs 05/18/24 Unknown Rx pantoprazole 40 mg tablet,delayed 40 mg PO BID #0 tabs 05/18/24 Unknown Rx release calcium polycarbophil 625 mg 1,250 mg (2 x 625 mg) PO QDAY #180 05/25/24 Unknown Rx tablet (FiberCon) tabs hydrocortisone acetate 25 mg 25 mg PA QHS #12 ea 05/25/24 Unknown Rx rectal suppository (Anusol-HC) Allergy/AdvReac Type Severity Reaction Status Date / Time No Known Allergies Allergy Verified 08/05/24 11:37 Family History Father , at 40 YOA of an [place] Heart disease Other Hypertension Surgical History Status post cervical spinal fusion History of esophagogastroduodenoscopy (EGD) Hx of colonoscopy History of tonsillectomy and adenoidectomy History of appendectomy Social History household members: none and other details: He is . Ex is Emily and she still is in contact. housing: apartment number of children: 2 Smoking Status: Former smoker quit date: 02/09/68 how long ago did patient quit smokin years alcohol intake: current alcohol intake frequency: holidays/special occasions only details: Tells me that he never drinks now. Tells me he drank too much in past. substance use type: does not use ROS ROS Narrative General: Denies fever/chills HENT: Denies headache, denies stuffy nose, denies sore throat EYES: Denies changes in vision Resp: Denies cough, denies shortness of breath Cardiac: Denies chest pain GI: Denies abdominal pain, constipation for 4 days, denies nausea/vomiting : Denies changes in urination Extremity: Denies swelling MSK: Generalized weakness, chronic left upper extremity deficit Neuro: Has some chronic left-sided deficits, reports he has tingling in extremities which is not necessarily new Heme: Denies any bleeding or bruising Skin: Denies rashes Psychiatric: No complaints voiced Vital Signs Vital Signs Vital Signs: 08/05/24 11:33 08/05/24 12:11 08/05/24 13:19 Temperature 98.5 F Temperature Source Oral Pulse Rate 78 Pulse Rate [Lying] 73 Pulse Rate [Sitting (for 1 minute prior to obtaining)] 72 Pulse Rate [Standing (for 1 minute prior to obtaining)] 75 Respiratory Rate 18 Respiratory Effort Normal Respiratory Pattern Normal Blood Pressure 135/104 H Blood Pressure [Lying] 168/87 H Blood Pressure [Sitting (for 1 minute prior to obtaining)] 160/74 H Blood Pressure [Standing (for 1 minute prior to obtaining)] 143/73 H Blood Pressure Mean 114 Blood Pressure Mean [Lying] 114 Blood Pressure Mean [Sitting (for 1 minute prior to obtaining)] 102 Blood Pressure Mean [Standing (for 1 minute prior to obtaining)] 96 Pulse Ox 100 Oxygen Delivery Method Room Air 08/05/24 13:31 08/05/24 15:00 Temperature Temperature Source Pulse Rate 67 78 Pulse Rate [Lying] Pulse Rate [Sitting (for 1 minute prior to obtaining)] Pulse Rate [Standing (for 1 minute prior to obtaining)] Respiratory Rate 15 16 Respiratory Effort Respiratory Pattern Blood Pressure 187/74 H 168/94 H Blood Pressure [Lying] Blood Pressure [Sitting (for 1 minute prior to obtaining)] Blood Pressure [Standing (for 1 minute prior to obtaining)] Blood Pressure Mean 111 118 Blood Pressure Mean [Lying] Blood Pressure Mean [Sitting (for 1 minute prior to obtaining)] Blood Pressure Mean [Standing (for 1 minute prior to obtaining)] Pulse Ox 100 100 Oxygen Delivery Method Room Air Room Air Weight Weight: 74 kg Body Mass Index (BMI) 24.7 Physical Exam Narrative General: Alert, no apparent distress HEENT: Atraumatic, normocephalic Eyes: Anicteric, normal conjunctiva, extraocular movements grossly intact Neck: Supple Respiratory: Clear to auscultation bilaterally, normal respiratory effort Cardiovascular: Regular rate GI: Soft, nontender, nondistended Extremities: No significant pitting edema Musculoskeletal: Patient with limited movement in left upper extremity Neuro: Has some chronic left-sided deficits, diffusely weak Skin: No rashes appreciated Psych: Overall cooperative Results Lab / Micro Data 08/05/24 12:00 08/05/24 12:00 Labs: Laboratory Results - last 24 hr 08/05/24 12:00: WBC 8.4, RBC 4.22 L, Hgb 12.3 L, Hct 37.0 L, MCV 87.7, MCH 29.1, MCHC 33.2, RDW Std Deviation 41.0, RDW Coeff of Delia 12.9, Plt Count 208, MPV 8.7, Immature Gran % (Auto) 0.200, Neut % (Auto) 57.7, Lymph % (Auto) 31.4, Sharkey % (Auto) 8.2, Eos % (Auto) 2.0, Baso % (Auto) 0.5, Absolute Neuts (auto) 4.8, Absolute Lymphs (auto) 2.63, Nucleated RBC % 0, Sodium 138, Potassium 4.3, Chloride 103, Carbon Dioxide 23.8, Anion Gap 12, BUN 18, Creatinine 0.87, Estim Creat Clear Calc 63.33, Est GFR (MDRD) Non-Af 86, BUN/Creatinine Ratio 21.1 H, Glucose 93, Calcium 9.4, Total Bilirubin 0.41, AST 25, ALT 23, Alkaline Phosphatase 120, Troponin T High Sens 39 H D, Total Protein 6.4, Albumin 4.0, Globulin 2.4, Albumin/Globulin Ratio 1.7, Lipase 15 08/05/24 12:25: Lactic Acid 1.3 08/05/24 13:15: Urine Color Yellow, Urine Clarity Clear, Urine pH 7.0, Ur Specific Cary 1.010, Urine Protein Negative, Urine Glucose (UA) Normal, Urine Ketones Negative, Urine Occult Blood Negative, Urine Nitrite Negative, Urine Bilirubin Negative, Urine Urobilinogen Normal, Ur Leukocyte Esterase Negative, Urine RBC 0 SEEN, Urine WBC 0 SEEN, Ur Squamous Epith Cells 0 SEEN, Urine Bacteria 0 SEEN, Urine Mucus 0 SEEN 08/05/24 14:00: Troponin T Hi Sens 2 Hr 36 H Imaging Radiology Impression Brain CT 08/05/24 12:10 IMPRESSION: No acute intracranial process. Reading Location: [facility] Cervical Spine CT 08/05/24 12:10 IMPRESSION: No acute cervical fracture or subluxations. Moderate multilevel degenerative changes of the cervical spine as above. Cervical ACDF spanning C3-C6 with interbody spacers. Reading Location: [facility] Assessment & Plan Assessment/Plan (1) Orthostatic lightheadedness: (2) Generalized weakness: PLAN: Plan #Positive orthostatic vital signs and generalized weakness -SBP lying 168/87 and standing 143/73 with dizziness and weakness -Will obtain echo -Appears patient has been on gabapentin since 07/29 which may be contributing/worsening symptoms, will hold - Given his neuropathy he is agreeable to trialing Cymbalta and holding gabapentin - Recent TSH within normal limits - Check a.m. cortisol - Patient given fluids in the ED - Patient has been on midodrine for couple of days and is hypertensive but still has drop in blood pressure, will hold midodrine while evaluating other underlying etiology # Recent surgery for cervical myelopathy -CT of the C-spine with no acute appearing process -PT/OT -Did recently follow w/ Dr. Diego on 08/03 -Supportive care #Sticking feeling w/ swallowing - Speech therapy consult #Elevated troponin - Troponin of 39 without chest pain, in April it was 31, repeat troponin 36 -May be due to blood pressure fluctuations -Patient to have echocardiogram as above - Do not expect any kind of ACS or cardiac event #Depression/anxiety - Continue Wellbutrin, patient to be started on Cymbalta #GERD -Continue PPI #DVT ppx: Lovenox subcu Yu Bradley MD Charges/Coding Visit Charges Inpatient E&M: 05067 Init Hosp L2
--- OUTSIDE RECORDS SUMMARY | 2024-08-05 16:09 | XMS RPT_ITS | CCD ---
Author Organization [facility] Care Team Providers Care Poly Operator Name Role Phone JORGE L CARTER Unavailable Unavailable KWABENA MENJIVAR Unavailable Unavailable BAO CERVANTES Unavailable Unavailable KWABENA MENJIVAR Unavailable Unavailable Otto CABELLO, Dr. Brown Primary Care Provider Mark CABELLO, Dr. Sterling Attending Provider Mark CABELLO, Dr. Sterling Emergency Provider [phone] David Granados MD Attending Provider Dr. [...] Menjivar MD, Dr. Brown Referring Provider Sukhi COAL GETTER-C, Sonia Attending Provider uSkhi COAL GETTER-C, Sonia Referring Provider Otto CABELLO, Dr. Brown [...] Provider Dr. David Granados MD Referring Provider Shail CABELLO, Dr. Moreira Other Provider Anita COAL GETTER-C, Ana Rosa Snyder Attending Provider Sementi DO, Dr. Corazon Pacheco Admit Provider Sementi DO, Dr. Corazon Pacheco Attending Provide r Sementi DO, Dr. Corazon Pacheco Referring Provide r Sementi DO, Dr. Corazon Pacheco Other Provider Awa Gamble Attending Provider Keven Etienne MD Attending Provider Unavailyenifer Menjivar MD, Dr. Brown Referring Provider Sukhi COAL GETTER-C, Sonia Attending Provider Sukhi COAL GETTER-C, Sonia Referring Provider Keven Etienne MD Referring Provider Unavailyenifer Menjivar MD, Dr. Brown Attending Provider She SUE-CAngelika Attending Provider Jaimie CABELLO, Dr. Baca Attending Provider [phone] Keven Britton Attending [facility]availabl e [facility]available Keanu Alfred Admitting Unavailable [facility] Unavailable Ciro Diego Consulting Unavailable Sahil, Harish Attending Unavailable SisYas david Consulting Unavailable Tima, Keanu Consulting Unavailable Sahil, Harish Consulting Unavailable Anita SUE, Ana Rosa Snyder Attending Unavailabl e [facility] Unavailable Keven Britton Attending Unavailabl e Sementi, Corazon Pacheco Referring Unavaila ble [facility] Unavailable Semengavin, Corazon Pacheco Consulting Unavaila ble Sementi, Corazon Pacheco Attending Unavaila ble Sementi, Corazon Pacheco Admitting Unavaila ble [facility] Unavailable Keven Britton Attending Unavailabl e Keven Britton Referring Unavailabl e [facility], [place] [facility] Unavailable Otto, Kwabena Attending Unavailable Gur[facility]inderbelle [facility] Referring Unavailable [facility] Unavailable Darwin, David Referring Unavailable Darwin, [place] Attending Unavailable SukhiToshiaSonia Attending Unavailable [facility] Unavailable [place], Christopher Referring Unavailable [facility] Unavailable Corazon Wright Referring Unavaila ble Darwin David Attending Unavailable Sukhi, Sonia Referring Unavailable SukhiFayeSonia Attending Unavailable [facility] Unavailable [facility] Unavailable Ranney, Christopher Attending Unavailable [facility] Referring Unavailable [place], [place] [facility] Unavailable Asher Flores Attending Unavailable [place], [place] [facility] Unavailable Ranney, Christopher Attending Unavailable Ranney, Christopher Referring Unavailable [place], [place] [facility] Unavailable Keven Britton Attending Unavailabl e Ciro Diego Attending Unavailable [facility], [place] Primary [facility] Unavailable She COAL GETTERAngeliak Attending Unavailable Sonia Isbell Attending Unavailable [facility], [place] [facility] Unavailable [facility] [place], [facility] Referring Unavailable [place], [place] [facility] Unavailable Danette Sargent Attending Unavailabl e [place], [place] [facility] Unavailable Oledollye Bisi KIRKPATRICKbe Attending Unavailabl e [facility] Unavailable Joarvinderi Keanu Attending Unavailable Jopperi, Keanu Admitting Unavailable Jopperi, Keanu Consulting Unavailable Siska, Yas Attending Unavailable Siska, Yas Consulting Unavailable Jopperi, Keanu Referring Unavailable Diego, Ciro Consulting Unavailable Jopperi, Keanu Attending Unavailable Sahil, Harish Referring Unavailable [facility], [place] [facility] Unavailable Angelika Nowak NP Attending Unavailable [place], [place] [facility] Unavailable Ciro Diego Attending Unavailable Ranney, Christopher Referring Unavailable [place], [place] [facility] Unavailable Darwin, David Attending Unavailable [facility], [place] [facility] Unavailable Edwar Etienneewongbe Attending Unavailable [place], [place] [facility] Unavailable Darwin, [place] Attending Unavailable Awa Chadwick Attending Unavailable Johnathon Ciro Attending Unavailable Sukhi, Sonia Referring Unavailable SukhiFayeSonia Attending Unavailable [facility] [place], [facility] Unavailable iBsi Brittonbe Attending Unavailabl e [place], Christopher Primary Care Unavailable Oleghe OLS, Efewongbe Attending [facility] Unavailable Keven Britton Attending Unavailallyssa e Jaimie KIRKPATRICK Effrannyongbe Referring [facility] Unavailable Ciro Diego Attending Unavailable [facility] Care Unavailable [facility] Referring Unavailable [facility] Unavailable David Granados Attending Unavailable [facility] Unavailable Keanu Alfred Admitting Unavailable Ciro Diego Consulting Unavailable Harish Baxter Attending Unavailable Yas Godinez Consulting Unavailable Tima Keanu Consulting Unavailable [facility] Unavailable Kyle, Corazon Pacheco Referring Unavaila ble Sementi, Corazon Pacheco Attending [...] 18, 2024 12:00am calcium polycarbophil 625 mg 5 Open wounds of head; neck; and trunk (10 sources) Laceration of eyebrow; Translations: [Laceration without foreign body of unspecified eyelid and periocular area, initial encounter] 03-05-2024 Episodic Osteoarthritis (17 sources) Osteoarthritis; Translations: [Unspecified osteoarthritis, unspecified site] Onset: 5 05-10-2024 Chronic Other aftercare (1 source) Encounter for other orthopedic aftercare; Translations: [Encounter for other orthopedic aftercare] Onset: 5 Episodic Other circulatory disease (16 sources) Orthostatic [...] sources) Arthrodesis status; Translations: [Arthrodesis status] Onset: 5 Episodic Other connective tissue disease (1 source) Repeated falls; Translations: [Repeated falls] Onset: 5 Episodic Other connective tissue disease [...] source) Dysphagia, unspecified; Translations: [Dysphagia, unspecified] Onset: 5 Episodic Other gastrointestinal disorders (1 source) Personal history of other diseases of the digestive system; Translations: [Personal history of other diseases of the digestive system] Onset: 5 Episodic Other gastrointestinal disorders (1 source) Dysphagia, pharyngeal phase; Translations: [Dysphagia, pharyngeal phase] Onset: 5 Episodic Other injuries and conditions due [...] [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 Other nervous system disorders (1 source) [...] Spine 2 or 3 Views Normal [facility] Orthopedic Visit Reporton Orthopedic Visit Report Normal [facility] Absolute lymphocyte countOrd ered By: Kwabena Menjivar on 07-20-2024 Lymphocytes Auto (Unsp spec) [#/Vol] 2.92 10*3/uL 0.83-4.51 [facility] Anion gap in Serum or Plasma Ordered By: Kwabena Menjivar on 07-20-2024 Anion gap [Moles/Vol] 13 mmol/L 5-15 [facility] Automated lymphocyte count a s percentage of total leukocytesOrdered By: Kwabena Menjivar on 07-20-2024 Lymphocytes/100 WBC Auto (Unsp spec) 35.4 % 19-41 [facility] BUN/creatinine ratioOrdered By: Reynaldoformerly [facility] marionuziel Menjivar on 07-20-2024 Urea nitrogen/Creatinine [Mass ratio] 12.9 mg/mg 10-20 [facility] Basophil percentageOrdered B y: Kwabena Menjivar on 07-20-2024 Basophils/100 WBC (Bld) 0.6 % 0-1 [facility] Bilirubin, totalOrdered By: Kwabena Menjivar on 07-20-2024 Bilirubin [Mass/Vol] 0.44 mg/dL 0.00-1.30 [facility] CBC W/Diff, Automatedon 07-09 Absolute Lymph 2.92 X10 3/uL Normal 0.83-4.51 [facility] Comment on above: Order Comment: Order Date: 07/20/24Order Info: [id number] - CBCDOrder Date: 10/27/23Order Info: [id number] - CBC Performed By: #### L 100.0100, L501.9520, L400.0001, L500.4050 ####[facility] [address] [place], [address] Absolute Neut 4.3 X10 3/uL Normal 2.0-7.7 [facility] Comment on above: Order Comment: Order Date: 07/20/24Order Info: [id number] - CBCDOrder Date: 10/27/23Order Info: [id number] - CBC Performed By: #### L 100.0100, L501.9520, L400.0001, L500.4050 ####[facility] [address] [place], [address] Basophils/100 WBC (Bld) 0.6 % Normal 0-1 [facility] Comment on above: Order Comment: Order Date: 07/20/24Order Info: [id number] - CBCDOrder Date: 10/27/23Order Info: [id number] - CBC Performed By: #### L 100.0100, L501.9520, L400.0001, L500.4050 ####[facility] [address] [place], [address] Eosinophils/100 WBC (Bld) 3.3 % Normal 0-5 [facility] Comment on above: Order Comment: Order Date: 07/20/24Order Info: [id number] - CBCDOrder Date: 10/27/23Order Info: [id number] - CBC Performed By: #### L 100.0100, L501.9520, L400.0001, L500.4050 ####[facility] [address] [place], [address] Erythrocyte distribution width (RBC) [Ratio] 13.1 % Normal 11.6-14.6 [facility] Comment on above: Order Comment: Order Date: 07/20/24Order Info: [id number] - CBCDOrder Date: 10/27/23Order Info: [id number] - CBC Performed By: #### L 100.0100, L501.9520, L400.0001, L500.4050 ####[facility] [address] [place], [address] Hematocrit (Bld) [Volume fraction] 40.4 % Normal 40-54 [facility] Comment on above: Order Comment: Order Date: 07/20/24Order Info: [id number] - CBCDOrder Date: 10/27/23Order Info: [id number] - CBC Performed By: #### L 100.0100, L501.9520, L400.0001, L500.4050 ####[facility] [address] [place], [address] Hemoglobin (Bld) [Mass/Vol] 13.3 g/dL Normal 13.0-16.5 [facility] Comment on above: Order Comment: Order Date: 07/20/24Order Info: [id number] - CBCDOrder Date: 10/27/23Order Info: [id number] - CBC Performed By: #### L 100.0100, L501.9520, L400.0001, L500.4050 ####[facility] [address] [place], [address] IG% 0.200 Normal 0.0-0.9 [facility] Comment on above: Order Comment: Order Date: 07/20/24Order Info: [id number] - CBCDOrder Date: 10/27/23Order Info: [id number] - CBC Result Comment: IG% - Immature Granulocytes (promyelocytes, myelocytes andmetamyelocytes) > 1% indicates that a LEFT SHIFT is Present. Performed By: #### L 100.0100, L501.9520, L400.0001, L500.4050 ####[facility] [address] [place], [address] Lymphocytes/100 WBC (Bld) 35.4 % Normal 19-41 [facility] Comment on above: Order Comment: Order Date: 07/20/24Order Info: [id number] - CBCDOrder Date: 10/27/23Order Info: [id number] - CBC Performed By: #### L 100.0100, L501.9520, L400.0001, L500.4050 ####[facility] [address] [place], [address] MCH (RBC) [Entitic mass] 29.4 pg Normal 27.0-32.0 [facility] Comment on above: Order Comment: Order Date: 07/20/24Order Info: [id number] - CBCDOrder Date: 10/27/23Order Info: [id number] - CBC Performed By: #### L 100.0100, L501.9520, L400.0001, L500.4050 ####[facility] [address] [place], [address] MCHC (RBC) [Mass/Vol] 32.9 g/dL Normal 32-36 [facility] Comment on above: Order Comment: Order Date: 07/20/24Order Info: [id number] - CBCDOrder Date: 10/27/23Order Info: [id number] - CBC Performed By: #### L 100.0100, L501.9520, L400.0001, L500.4050 ####[facility] [address] [place], [address] MCV (RBC) [Entitic vol] 89.2 fL Normal 80-94 [facility] Comment on above: Order Comment: Order Date: 07/20/24Order Info: [id number] - CBCDOrder Date: 10/27/23Order Info: [id number] - CBC Performed By: #### L 100.0100, L501.9520, L400.0001, L500.4050 ####[facility] [address] [place], [address] Monocytes/100 WBC (Bld) 8.4 % Normal 0-10 [facility] Comment on above: Order Comment: Order Date: 07/20/24Order Info: [id number] - CBCDOrder Date: 10/27/23Order Info: [id number] - CBC Performed By: #### L 100.0100, L501.9520, L400.0001, L500.4050 ####[facility] [address] [place], [address] Neutrophils/100 WBC (Bld) 52.1 % Normal 47-70 [facility] Comment on above: Order Comment: Order Date: 07/20/24Order Info: [id number] - CBCDOrder Date: 10/27/23Order Info: [id number] - CBC Performed By: #### L 100.0100, L501.9520, L400.0001, L500.4050 ####[facility] [address] [place], [address] Nucleated RBC (Bld) [#/Vol] 0 10*3/uL Normal 0-5 [facility] Comment on above: Order Comment: Order Date: 07/20/24Order Info: [id number] - CBCDOrder Date: 10/27/23Order Info: [id number] - CBC Performed By: #### L 100.0100, L501.9520, L400.0001, L500.4050 ####[facility] [address] [place], [address] Platelet mean volume (Bld) [Entitic vol] 9.1 fL Normal 6.2-12.0 [facility] Comment on above: Order Comment: Order Date: 07/20/24Order Info: [id number] - CBCDOrder Date: 10/27/23Order Info: [id number] - CBC Performed By: #### L 100.0100, L501.9520, L400.0001, L500.4050 ####[facility] [address] [place], [address] Platelets (Bld) [#/Vol] 242 10*3/uL Normal 150-450 [facility] Comment on above: Order Comment: Order Date: 07/20/24Order Info: [id number] - CBCDOrder Date: 10/27/23Order Info: [id number] - CBC Performed By: #### L 100.0100, L501.9520, L400.0001, L500.4050 ####[facility] [address] [place], [address] RBC (Bld) [#/Vol] 4.53 10*6/uL Low 4.6-6.2 [facility] Comment on above: Order Comment: Order Date: 07/20/24Order Info: [id number] - CBCDOrder Date: 10/27/23Order Info: [id number] - CBC Performed By: #### L 100.0100, L501.9520, L400.0001, L500.4050 ####[facility] [address] [place], [address] RDW SD 43.0 fl Normal 35.1-43.9 [facility] Comment on above: Order Comment: Order Date: 07/20/24Order Info: [id number] - CBCDOrder Date: 10/27/23Order Info: [id number] - CBC Performed By: #### L 100.0100, L501.9520, L400.0001, L500.4050 ####[facility] [address] [place], [address] WBC (Bld) [#/Vol] 8.3 10*3/uL Normal 4.4-11.0 [facility] Comment on above: Order Comment: Order Date: 07/20/24Order Info: [id number] - CBCDOrder Date: 10/27/23Order Info: [id number] - CBC Performed By: #### L 100.0100, L501.9520, L400.0001, L500.4050 ####[facility] [address] [place], [address] Calculated very low density lipoprotein (VLDL) cholesterol measurementOrdered By: Kwabena Menjivar on 07-20-2024 Calculated very low density lipoprotein (VLDL) cholesterol measurement 27 mg/dL 5-40 [facility] Carbon dioxide, total [Moles /volume] in Central venous bloodOrdered By: Kwabena Menjivar on 07-20-2024 CO2 [Moles/Vol] 24.7 mmol/L 21.0-32.0 [facility] Chloride assayOrdered By: Kristine Menjivar on 07-20-2024 Chloride [Moles/Vol] 104 mmol/L 98-108 [facility] Comprehensive Metabolic Prof ilon 07-20-2024 Albumin [Mass/Vol] 4.3 g/dL Normal 3.4-4.8 [facility] Comment on above: Order Comment: Order Date: 10/27/23Order Info: 06- - BMPOrder Date: 07/20/24Order Info: [id number] - CMPOrder Info: [id number] - LIPIDOrder Info: [id number] - TSH Performed By: #### L 100.0100, L501.9520, L400.0001, L500.4050 ####[facility] [address] [place], [place], [address] Albumin/Globulin [Mass ratio] 1.6 {ratio} Normal 0.9-2.4 [facility] Comment on above: Order Comment: Order Date: 10/27/23Order Info: [id number] - BMPOrder Date: 07/20/24Order Info: [id number]- - CMPOrder Info: [id number] - LIPIDOrder Info: [id number] - TSH Performed By: #### L 100.0100, L501.9520, L400.0001, L500.4050 ####[facility] [address] [place], [address] ALK PHOS 133 U/L High 40-129 [facility] Comment on above: Order Comment: Order Date: 10/27/23Order Info: [id number] - BMPOrder Date: 07/20/24Order Info: [id number] - CMPOrder Info: [id number] - LIPIDOrder Info: [id number] - TSH Performed By: #### L 100.0100, L501.9520, L400.0001, L500.4050 ####[facility] [address] [place], [address] ALT [Catalytic activity/Vol] 33 U/L Normal <=46 [facility] Comment on above: Order Comment: Order Date: 10/27/23Order Info: 67-1 - BMPOrder Date: 07/20/24Order Info: [id number] - CMPOrder Info: [id number] - LIPIDOrder Info: [id number] - TSH Performed By: #### L 100.0100, L501.9520, L400.0001, L500.4050 ####[facility] [address] [place], [address] AST [Catalytic activity/Vol] 30 U/L Normal <=37 [facility] Comment on above: Order Comment: Order Date: 10/27/23Order Info: 666- - BMPOrder Date: 07/20/24Order Info: 86-1 - CMPOrder Info: [id number] - LIPIDOrder Info: [id number] - TSH Performed By: #### L 100.0100, L501.9520, L400.0001, L500.4050 ####[facility] [address] [place], [address] Bilirubin [Mass/Vol] 0.44 mg/dL Normal 0.00-1.30 [facility] Comment on above: Order Comment: Order Date: 10/27/23Order Info: [id number] - BMPOrder Date: 07/20/24Order Info: [id number] - CMPOrder Info: [id number] - LIPIDOrder Info: [id number] - TSH Performed By: #### L 100.0100, L501.9520, L400.0001, L500.4050 ####[facility] [address] [place], [address] BUN/CRE 12.9 RATIO Normal 10-20 [facility] Comment on above: Order Comment: Order Date: 10/27/23Order Info: [id number] - BMPOrder Date: 07/20/24Order Info: 785- - CMPOrder Info: [id number] - LIPIDOrder Info: [id number] - TSH Performed By: #### L 100.0100, L501.9520, L400.0001, L500.4050 ####[facility] [address] [place], [address] Calcium [Mass/Vol] 9.6 mg/dL Normal 7.6-11.0 [facility] Comment on above: Order Comment: Order Date: 10/27/23Order Info: [id number] - BMPOrder Date: 07/20/24Order Info: [id number] - CMPOrder Info: [id number] - LIPIDOrder Info: [id number] - TSH Performed By: #### L 100.0100, L501.9520, L400.0001, L500.4050 ####[facility] [address] [place], [address] Chloride [Moles/Vol] 104 mmol/L Normal 98-108 [facility] Comment on above: Order Comment: Order Date: 10/27/23Order Info: [id number] - BMPOrder Date: 07/20/24Order Info: [id number] - CMPOrder Info: [id number] - LIPIDOrder Info: [id number] - TSH Performed By: #### L 100.0100, L501.9520, L400.0001, L500.4050 ####[facility] [address] [place], [address] CO2 [Moles/Vol] 24.7 mmol/L Normal 21.0-32.0 [facility] Comment on above: Order Comment: Order Date: 10/27/23Order Info: [id number] - BMPOrder Date: 07/20/24Order Info: [id number] - CMPOrder Info: [id number] - LIPIDOrder Info: [id number] - TSH Performed By: #### L 100.0100, L501.9520, L400.0001, L500.4050 ####[facility] [address] [place], [address] Creatinine [Mass/Vol] 1.07 mg/dL Normal 0.70-1.20 [facility] Comment on above: Order Comment: Order Date: 10/27/23Order Info: 67-1 - BMPOrder Date: 07/20/24Order Info: 86-1 - CMPOrder Info: [id number] - LIPIDOrder Info: [id number] - TSH Performed By: #### L 100.0100, L501.9520, L400.0001, L500.4050 ####[facility] [address] [place], [address] GAP 13 Normal 5-15 [facility] Comment on above: Order Comment: Order Date: 10/27/23Order Info: 666- - BMPOrder Date: 07/20/24Order Info: [id number] - CMPOrder Info: [id number] - LIPIDOrder Info: [id number] - TSH Performed By: #### L 100.0100, L501.9520, L400.0001, L500.4050 ####[facility] [address] [place], [address] GFR/1.73 sq M.predicted among non-blacks MDRD (S/P/Bld) [Vol rate/Area] 69 mL/min/{1.73_m2} Normal >60 [facility] Comment on above: Order Comment: Order Date: 10/27/23Order Info: 666-1 - BMPOrder Date: 07/20/24Order Info: [id number] - CMPOrder Info: [id number] - LIPIDOrder Info: [id number] - TSH Result Comment: mL/m in/1.73m2 CKD-EPI Creatinine Equation (2020) Performed By: #### L 100.0100, L501.9520, L400.0001, L500.4050 ####[facility] [address] [place], [place], [address] Globulin (S) [Mass/Vol] 2.6 g/dL Normal 2.2-4.2 [facility] Comment on above: Order Comment: Order Date: 10/27/23Order Info: 666- - BMPOrder Date: 07/20/24Order Info: 86-1 - CMPOrder Info: [id number] - LIPIDOrder Info: [id number] - TSH Performed By: #### L 100.0100, L501.9520, L400.0001, L500.4050 ####[facility] [address] [place], [address] Glucose [Mass/Vol] 86 mg/dL Normal 70-99 [facility] Comment on above: Order Comment: Order Date: 10/27/23Order Info: [id number] - BMPOrder Date: 07/20/24Order Info: 785- - CMPOrder Info: [id number] - LIPIDOrder Info: [id number] - TSH Performed By: #### L 100.0100, L501.9520, L400.0001, L500.4050 ####[facility] [address] [place], [address] Potassium [Moles/Vol] 4.3 mmol/L Normal 3.3-5.1 [facility] Comment on above: Order Comment: Order Date: 10/27/23Order Info: [id number] - BMPOrder Date: 07/20/24Order Info: 785- - CMPOrder Info: [id number] - LIPIDOrder Info: [id number] - TSH Performed By: #### L 100.0100, L501.9520, L400.0001, L500.4050 ####[facility] [address] [place], [address] Sodium [Moles/Vol] 142 mmol/L Normal 133-145 [facility] Comment on above: Order Comment: Order Date: 10/27/23Order Info: 666- - BMPOrder Date: 07/20/24Order Info: [id number]- - CMPOrder Info: [id number] - LIPIDOrder Info: [id number] - TSH Performed By: #### L 100.0100, L501.9520, L400.0001, L500.4050 ####[facility] [address] [place], [address] T PROT 6.9 g/dL Normal 5.9-8.4 [facility] Comment on above: Order Comment: Order Date: 10/27/23Order Info: [id number] - BMPOrder Date: 07/20/24Order Info: [id number] - CMPOrder Info: [id number] - LIPIDOrder Info: [id number] - TSH Performed By: #### L 100.0100, L501.9520, L400.0001, L500.4050 ####[facility] [address] [place], [address] Urea nitrogen [Mass/Vol] 14 mg/dL Normal 4-19 [facility] Comment on above: Order Comment: Order Date: 10/27/23Order Info: [id number]- - BMPOrder Date: 07/20/24Order Info: [id number] - CMPOrder Info: [id number] - LIPIDOrder Info: [id number] - TSH Performed By: #### L 100.0100, L501.9520, L400.0001, L500.4050 ####[facility] [address] [place], [place], [address] Eosinophil percentageOrdered By: Kwabena Menjivar on 07-20-2024 Eosinophils/100 WBC (Bld) 3.3 % 0-5 [facility] Erythrocyte distribution wid th ratioOrdered By: Kwabena Menjivar on 07-20-2024 Erythrocyte distribution width (RBC) [Ratio] 13.1 % 11.6-14.6 [facility] Erythrocyte distribution wid th standard deviationOrdered By: Kwabena Menjivar on 07-20-2024 Erythrocyte distribution width (RBC) [Ratio] 43.0 fl 35.1-43.9 [facility] Glomerular filtration rate ( GFR) estimation/1.73 sq m using serum, plasma, or whole bOrdered By: Kwabena Menjivar on 07-20-2024 GFR/1.73 sq M.predicted among non-blacks MDRD (S/P/Bld) [Vol rate/Area] 69 mL/min/{1.73_m2} >60 [facility] [facility] Hematocrit Auto (Bld) [Volum e fraction]Ordered By: Kwabena Menjivar on 07-20-2024 Hematocrit (Bld) [Volume fraction] 40.4 % 40-54 [facility] Hemoglobin measurementOrdere d By: Kwabena Menjivar on 07-20-2024 Hemoglobin (Bld) [Mass/Vol] 13.3 g/dL 13.0-16.5 [facility] Immature granulocytes/100 WB C Auto (Bld)Ordered By: Kwabena Menjivar on 07-20-2024 Immature granulocytes/100 WBC (Bld) 0.200 % 0.0-0.9 [facility] LDL calc ser/plasOrdered By: Kwabena Menjivar on 07-20-2024 Cholesterol in LDL [Mass/Vol] 105 mg/dL [facility] Lipid Profileon 07-20-2024 CHOL:HDL 3.52 Normal [facility] Comment on above: Order Comment: Order Date: 10/27/23Order Info: [id number] - BMPOrder Date: 07/20/24Order Info: [id number] - CMPOrder Info: [id number] - LIPIDOrder Info: [id number] - TSH Performed By: #### L 500.4100 ####[facility] [address] [place], [place], [address] Cholesterol [Mass/Vol] 185 mg/dL Normal <=200 [facility] Comment on above: Order Comment: Order Date: 10/27/23Order Info: [id number] - BMPOrder Date: 07/20/24Order Info: [id number] - CMPOrder Info: [id number] - LIPIDOrder Info: [id number] - TSH Result Comment: Chol esterol level, Desirable <200 mg/dLBorderline high cholesterol 200-239 mg/dLHigh cholesterol >=240 mg/dLRecommendations of the NCEP Adult Treatment Panel for thefollowing risk-cutoff thresholds for the [place] Americanpopulation. Performed By: #### L 500.4100 ####[facility] [address] [place], [address] Cholesterol in HDL [Mass/Vol] 53 mg/dL Normal [facility] Comment on above: Order Comment: Order Date: 10/27/23Order Info: [id number] BMPOrder Date: 07/20/24Order Info: [id number] - CMPOrder Info: [id number] - LIPIDOrder Info: [id number] - TSH Result Comment: Jodi onal Cholesterol Education Program (NCEP) guidelines:<40 mg/dL: Low HDL-cholesterol (major risk factor for CHD)>= 60 mg/dL: High HDL-cholesterol (negative risk factor forCHD)HDL-cholesterol is affected by a number of factors, e.g.smoking, exercise, hormones, sex and age. Performed By: #### L 500.4100 ####[facility] [address] [place], [address] Cholesterol in LDL [Mass/Vol] 105 mg/dL Normal [facility] Comment on above: Order Comment: Order Date: 10/27/23Order Info: [id number] - BMPOrder Date: 07/20/24Order Info: [id number] - CMPOrder Info: [id number] - LIPIDOrder Info: [id number] - TSH Result Comment: Bord sqpghj=903-241 mg/dL Higher Nauc=925 mg/dL or greater Performed By: #### L 500.4100 ####[facility] [address] [place], [address] Cholesterol in VLDL [Mass/Vol] 27 mg/dL Normal 5-40 [facility] Comment on above: Order Comment: Order Date: 10/27/23Order Info: [id number] - BMPOrder Date: 07/20/24Order Info: [id number] - CMPOrder Info: [id number] - LIPIDOrder Info: [id number] - TSH Performed By: #### L 500.4100 ####[facility] [address] [place], [address] Triglyceride [Mass/Vol] 136 mg/dL Normal [facility] Comment on above: Order Comment: Order Date: 10/27/23Order Info: [id number] - BMPOrder Date: 07/20/24Order Info: [id number] - CMPOrder Info: [id number] - LIPIDOrder Info: [id number] - TSH Result Comment: The drugs N-Acetylcysteine and Metamizole may falselydepress this assay.Normal range: <150 mg/dLBorderline High: 150-199 mg/dLHigh: 200-499 mg/dLVery High: >500 mg/dL Performed By: #### L 500.4100 ####[facility] [address] [place], [place], [id number] MCV (mean corpuscular volume ) determinationOrdered By: Kwabena Menjivar on 07-20-2024 MCV (RBC) [Entitic vol] 89.2 fL 80-94 [facility] Mean corpuscular hemoglobin (MCH) determinationOrdered By: Kwabena Menjivar on 07-20-2024 MCH (RBC) [Entitic mass] 29.4 pg 27.0-32.0 [facility] Monocyte percentageOrdered B y: Kwabena Menjivar on 07-20-2024 Monocytes/100 WBC (Bld) 8.4 % 0-10 [facility] Neutrophil percentageOrdered By: Reynaldoformerly [facility] - marionuziel Menjivar on 07-20-2024 Neutrophils/100 WBC (Bld) 52.1 % 47-70 [facility] No Panel InformationOrdered By: Kwabena Menjivar on 07-20-2024 30 U/L <38 [facility] Platelet countOrdered By: Kristine Menjivar on 07-20-2024 Platelets (Bld) [#/Vol] 242 10*3/uL 150-450 [facility] Potassium measurement (mass/ volume)Ordered By: Kwabena Menjivar on 07-20-2024 Potassium (Unsp spec) [Mass/Vol] 4.3 mmol/L 3.3-5.1 [facility] RBC Auto (Bld) [#/Vol]Ordere d By: Kwabena Menjivar on 07-20-2024 RBC (Bld) [#/Vol] 4.53 10*6/uL Low 4.6-6.2 [facility] Serum creatinine measurement (mass/volume)Ordered By: Kwabena Menjivar on 07-20-2024 Creatinine [Mass/Vol] 1.07 mg/dL 0.70-1.20 [facility] Serum globulin measurementOr dered By: Kwabena Menjivar on 07-20-2024 Globulin (S) [Mass/Vol] 2.6 g/dL 2.2-4.2 [facility] Serum glucose measurement (m ass/volume)Ordered By: Kwabena Menjivar on 07-20-2024 Glucose [Mass/Vol] 86 mg/dL 70-99 [facility] Serum or plasma alanine olmedo otransferase (ALT) measurementOrdered By: Kwabena Menjivar on 07-20-2024 ALT [Catalytic activity/Vol] 33 U/L <47 [facility] Serum or plasma albumin ratna urement (mass/volume)Ordered By: Kwabena Menjivar on 07-20-2024 Albumin [Mass/Vol] 4.3 g/dL 3.4-4.8 [facility] Serum or plasma albumin/glob ulin mass ratioOrdered By: Kwabean Menjivar on 07-20-2024 Albumin/Globulin [Mass ratio] 1.6 {ratio} 0.9-2.4 [facility] Serum or plasma alkaline garry sphatase measurementOrdered By: Kwabena Menjivar on 07-20-2024 ALP [Catalytic activity/Vol] 133 U/L High 40-129 [facility] Serum or plasma calcium ratna urement (mass/volume)Ordered By: Kwabena Menjivar on 07-20-2024 Calcium [Mass/Vol] 9.6 mg/dL 7.6-11.0 [facility] Serum or plasma cholesterol in HDL measurement (mass/volume)Ordered By: Kwabena Menjivar on 07-20-2024 Cholesterol in HDL [Mass/Vol] 53 mg/dL >40 [facility] Serum or plasma cholesterol measurement (mass/volume)Ordered By: Kwabena Menjivar on 07-20-2024 Cholesterol [Mass/Vol] 185 mg/dL <201 [facility] Serum or plasma urea nitroge n measurement (mass/volume)Ordered By: Kwabena Menjivar on 07-20-2024 Urea nitrogen [Mass/Vol] 14 mg/dL 4-19 [facility] Sodium levelOrdered By: Akhil jeremy Otto on 07-20-2024 Sodium [Moles/Vol] 142 mmol/L 133-145 [facility] TSH DL <= 0.005 mIU/L QnOrde red By: Kwabena Menjivar on 07-20-2024 TSH Qn 1.580 uIU/mL 0.300-4.200 [facility] Thyroid Stim Hormone (TSH)on 07-20-2024 TSH 1.580 uIU/mL Normal 0.300-4.200 [facility] Comment on above: Order Comment: Order Date: 10/27/23Order Info: [id number] - BMPOrder Date: 07/20/24Order Info: [id number] - CMPOrder Info: [id number] - LIPIDOrder Info: [id number] - TSH Performed By: #### L 100.0100, L501.9520, L400.0001, L500.4050 ####[facility] [address] [place], [place], [address] Total proteinOrdered By: Blayne Menjivar on 07-20-2024 Protein [Mass/Vol] 6.9 g/dL 5.9-8.4 [facility] Urinalysis, Completeon 07-20 BACTERIA 0 SEEN Normal None Seen [facility] Comment on above: Order Comment: Order Date: 07/20/24Order Info: [id number] - UACCOLLECTOR TO SPECIFY Result Comment: UTO Performed By: #### L 100.0100, L501.9520, L400.0001, L500.4050 ####[facility] [address] [place], [address] EPI,SQUAMOUS 0 SEEN Normal 0-5 [facility] Comment on above: Order Comment: Order Date: 07/20/24Order Info: [id number] - UACCOLLECTOR TO SPECIFY Result Comment: UTO Performed By: #### L 100.0100, L501.9520, L400.0001, L500.4050 ####[facility] [address] [place], [address] Mucus Ql (Urine sed) 0 SEEN Normal [facility] Comment on above: Order Comment: Order Date: 07/20/24Order Info: [id number] - UACCOLLECTOR TO SPECIFY Result Comment: UTO Performed By: #### L 100.0100, L501.9520, L400.0001, L500.4050 ####[facility] [address] [place], [address] RBC 0 SEEN Normal 0-5 [facility] Comment on above: Order Comment: Order Date: 07/20/24Order Info: [id number] - UACCOLLECTOR TO SPECIFY Result Comment: UTO Performed By: #### L 100.0100, L501.9520, L400.0001, L500.4050 ####[facility] [address] [place], [address] WBC 0 SEEN Normal 0-[address] [place] [address] Comment on above: Order Comment: Order Date: 07/20/24Order Info: [id number] - UACCOLLECTOR TO SPECIFY Result Comment: UTO Performed By: #### L 100.0100, L501.9520, L400.0001, L500.4050 ####[facility] [address] [place], [address] BILIRUBIN URINE Normal Negative [facility] Comment on above: Order Comment: Order Date: 07/20/24Order Info: [id number] - UACCOLLECTOR TO SPECIFY Result Comment: UTO Performed By: #### L 100.0100, L501.9520, L400.0001, L500.4050 ####[facility] [address] [place], [address] Clarity (U) Normal Clear [facility] Comment on above: Order Comment: Order Date: 07/20/24Order Info: [id number] - UACCOLLECTOR TO SPECIFY Result Comment: UTO Performed By: #### L 100.0100, L501.9520, L400.0001, L500.4050 ####[facility] [address] [place], [address] Color (U) Normal Yellow [facility] Comment on above: Order Comment: Order Date: 07/20/24Order Info: [id number] - UACCOLLECTOR TO SPECIFY Result Comment: UTO Performed By: #### L 100.0100, L501.9520, L400.0001, L500.4050 ####[facility] [address] [place], [address] GLUCOSE, UR Normal Normal [facility] Comment on above: Order Comment: Order Date: 07/20/24Order Info: [id number] - UACCOLLECTOR TO SPECIFY Result Comment: UTO Performed By: #### L 100.0100, L501.9520, L400.0001, L500.4050 ####[facility] [address] [place], [address] KETONE UR Normal Negative [facility] Comment on above: Order Comment: Order Date: 07/20/24Order Info: [id number] - UACCOLLECTOR TO SPECIFY Result Comment: UTO Performed By: #### L 100.0100, L501.9520, L400.0001, L500.4050 ####[facility] [address] [place], [address] LEUK ESTERASE Normal Negative [facility] Comment on above: Order Comment: Order Date: 07/20/24Order Info: [id number] - UACCOLLECTOR TO SPECIFY Result Comment: UTO Performed By: #### L 100.0100, L501.9520, L400.0001, L500.4050 ####[facility] [address] [place], [address] Nitrite Ql (U) Normal Negative [facility] Comment on above: Order Comment: Order Date: 07/20/24Order Info: [id number] - UACCOLLECTOR TO SPECIFY Result Comment: UTO Performed By: #### L 100.0100, L501.9520, L400.0001, L500.4050 ####[facility] [address] [place], [address] OCCULT BLOOD-UR Normal Negative [facility] Comment on above: Order Comment: Order Date: 07/20/24Order Info: [id number] - UACCOLLECTOR TO SPECIFY Result Comment: UTO Performed By: #### L 100.0100, L501.9520, L400.0001, L500.4050 ####[facility] [address] [place], [address] pH UR Normal 5.0 - 8.0 [facility] Comment on above: Order Comment: Order Date: 07/20/24Order Info: [id number] - UACCOLLECTOR TO SPECIFY Result Comment: UTO Performed By: #### L 100.0100, L501.9520, L400.0001, L500.4050 ####[facility] [address] [place], [address] PROT DIPSTX Normal Negative [facility] Comment on above: Order Comment: Order Date: 07/20/24Order Info: [id number] - UACCOLLECTOR TO SPECIFY Result Comment: UTO Performed By: #### L 100.0100, L501.9520, L400.0001, L500.4050 ####[facility] [address] [place], [address] SP.GR. DIPSTX Normal 1.002-1.030 [facility] Comment on above: Order Comment: Order Date: 07/20/24Order Info: [id number] - UACCOLLECTOR TO SPECIFY Result Comment: UTO Performed By: #### L 100.0100, L501.9520, L400.0001, L500.4050 ####[facility] [address] [place], [address] UR Preservative Normal [facility] Comment on above: Order Comment: Order Date: 07/20/24Order Info: [id number] - UACCOLLECTOR TO SPECIFY Result Comment: UTO Performed By: #### L 100.0100, L501.9520, L400.0001, L500.4050 ####[facility] [address] [place], [address] UROBILI Normal Normal [facility] Comment on above: Order Comment: Order Date: 07/20/24Order Info: [id number] - UACCOLLECTOR TO SPECIFY Result Comment: UTO Performed By: #### L 100.0100, L501.9520, L400.0001, L500.4050 ####[facility] [address] [place], [address] Vitamin D,25 Hydroxyon 07-20 Vitamin D 25-OH 45.1 ng/mL Normal 30-100 [facility] Comment on above: Order Comment: Order Date: 10/27/23Order Info: [id number] - BMPOrder Date: 07/20/24Order Info: [id number] - CMPOrder Info: [id number] - LIPIDOrder Info: [id number] - TSH Result Comment: Bethany min D StatusDeficiency: <20 ng/mL (50nmol/L)Insufficiency: 20-30 ng/mL (50-75 nmol/L)Sufficiency: 30-100 ng/mL (75-250 nmol/L)Toxicity: >100 ng/mL (>250 nmol/L) Performed By: #### L 506.1001 ####[facility] [address] [place], [address] White blood cell (WBC) count Ordered By: Kwabena Menjivar on 07-20-2024 WBC (Bld) [#/Vol] 8.3 10*3/uL 4.4-11.0 [facility] Wrist min 3 Viewson 07-21-19 25 Wrist min 3 Views Normal [facility] Absolute lymphocyte countOrd ered By: Keven Etienne on 07-11-2024 Lymphocytes Auto (Unsp spec) [#/Vol] 2.74 10*3/uL 0.83-4.51 [facility] Anion gap in Serum or Plasma Ordered By: Keven Etienne on 07-11-2024 Anion gap [Moles/Vol] 10 mmol/L 5-15 [facility] Automated lymphocyte count a s percentage of total leukocytesOrdered By: Keven Etienne on 07-11-2024 Lymphocytes/100 WBC Auto (Unsp spec) 40.8 % 19-41 [facility] BUN/creatinine ratioOrdered By: Keven Etienne on 07-11-2024 Urea nitrogen/Creatinine [Mass ratio] 22.0 mg/mg High 10-20 [facility] Basophil percentageOrdered B y: Keven Etienne on 07-11-2024 Basophils/100 WBC (Bld) 0.6 % 0-1 [facility] Carbon dioxide, total [Moles /volume] in Central venous bloodOrdered By: Keven Etienne on 07-11-2024 CO2 [Moles/Vol] 25.7 mmol/L 21.0-32.0 [facility] Chloride assayOrdered By: Edwar Etienne on 07-11-2024 Chloride [Moles/Vol] 104 mmol/L 98-108 [facility] Eosinophil percentageOrdered By: Keven Etienne on 07-11-2024 Eosinophils/100 WBC (Bld) 6.1 % High 0-5 [facility] Erythrocyte distribution wid th ratioOrdered By: Keven Etienne on 07-11-2024 Erythrocyte distribution width (RBC) [Ratio] 13.1 % 11.6-14.6 [facility] Erythrocyte distribution wid th standard deviationOrdered By: Keven Etienne on 07-11-2024 Erythrocyte distribution width (RBC) [Ratio] 42.7 fl 35.1-43.9 [facility] Glomerular filtration rate ( GFR) estimation/1.73 sq m using serum, plasma, or whole bOrdered By: Keven Etienne on 07-11-2024 GFR/1.73 sq M.predicted among non-blacks MDRD (S/P/Bld) [Vol rate/Area] 87 mL/min/{1.73_m2} >60 [facility] Hematocrit Auto (Bld) [Volum e fraction]Ordered By: Keven Etienne on 07-11-2024 Hematocrit (Bld) [Volume fraction] 35.5 % Low 40-54 [facility] Hemoglobin measurementOrdere d By: Keven Etienne on 07-11-2024 Hemoglobin (Bld) [Mass/Vol] 11.9 g/dL Low 13.0-16.5 [facility] Immature granulocytes/100 WB C Auto (Bld)Ordered By: Keven Etienne on 07-11-2024 Immature granulocytes/100 WBC (Bld) 0.300 % 0.0-0.9 [facility] MCV (mean corpuscular volume ) determinationOrdered By: Ritaspringlakekeron Etienne on 07-11-2024 MCV (RBC) [Entitic vol] 88.8 fL 80-94 [facility] Mean corpuscular hemoglobin (MCH) determinationOrdered By: frannyspringlakekeron Etienne on 07-11-2024 MCH (RBC) [Entitic mass] 29.8 pg 27.0-32.0 [facility] Monocyte percentageOrdered B y: Keven Etienne on 07-11-2024 Monocytes/100 WBC (Bld) 8.9 % 0-10 [facility] Neutrophil percentageOrdered By: Keven Etienne on 07-11-2024 Neutrophils/100 WBC (Bld) 43.3 % Low 47-70 [facility] Platelet countOrdered By: Edwar Etienne on 07-11-2024 Platelets (Bld) [#/Vol] 186 10*3/uL 150-450 [facility] Potassium measurement (mass/ volume)Ordered By: Keven Etienne on 07-11-2024 Potassium (Unsp spec) [Mass/Vol] 4.3 mmol/L 3.3-5.1 [facility] RBC Auto (Bld) [#/Vol]Ordere d By: Keven Etienne on 07-11-2024 RBC (Bld) [#/Vol] 4.00 10*6/uL Low 4.6-6.2 [facility] Serum creatinine measurement (mass/volume)Ordered By: Keven Etienne on 07-11-2024 Creatinine [Mass/Vol] 0.86 mg/dL 0.70-1.20 [facility] Serum glucose measurement (m ass/volume)Ordered By: Keven Etienne on 07-11-2024 Glucose [Mass/Vol] 91 mg/dL 70-99 [facility] Serum or plasma calcium ratna urement (mass/volume)Ordered By: Keven Etienne on 07-11-2024 Calcium [Mass/Vol] 8.8 mg/dL 7.6-11.0 [facility] Serum or plasma urea nitroge n measurement (mass/volume)Ordered By: Keven Etienne on 07-11-2024 Urea nitrogen [Mass/Vol] 19 mg/dL 4-19 [facility] Sodium levelOrdered By: Rita juan alberto Jaimie on 07-11-2024 Sodium [Moles/Vol] 139 mmol/L 133-145 [facility] White blood cell (WBC) count Ordered By: Keevn Etienne on 07-11-2024 WBC (Bld) [#/Vol] 6.7 10*3/uL 4.4-11.0 [facility] Absolute lymphocyte countOrd ered By: Keven Etienne on 07-04-2024 Lymphocytes Auto (Unsp spec) [#/Vol] 2.53 10*3/uL 0.83-4.51 [facility] Anion gap in Serum or Plasma Ordered By: Keven Etienne on 07-04-2024 Anion gap [Moles/Vol] 10 mmol/L 5-15 [facility] Automated lymphocyte count a s percentage of total leukocytesOrdered By: Keven Etienne on 07-04-2024 Lymphocytes/100 WBC Auto (Unsp spec) 38.2 % 19-41 [facility] BUN/creatinine ratioOrdered By: Keven Etienne on 07-04-2024 Urea nitrogen/Creatinine [Mass ratio] 15.7 mg/mg 10-20 [facility] Basophil percentageOrdered B y: Edwarremedios Monicodollyclaudio on 07-04-2024 Basophils/100 WBC (Bld) 0.3 % 0-1 [facility] Carbon dioxide, total [Moles /volume] in Central venous bloodOrdered By: Keven Etienne on 07-04-2024 CO2 [Moles/Vol] 25.9 mmol/L 21.0-32.0 [facility] Chloride assayOrdered By: Edwar frannyjuan alberto Etienne on 07-04-2024 Chloride [Moles/Vol] 105 mmol/L 98-108 [facility] Eosinophil percentageOrdered By: Keven Etienne on 07-04-2024 Eosinophils/100 WBC (Bld) 6.8 % High 0-5 [facility] Erythrocyte distribution wid th ratioOrdered By: frannyspringlakekeron Etienne on 07-04-2024 Erythrocyte distribution width (RBC) [Ratio] 12.9 % 11.6-14.6 [facility] Erythrocyte distribution wid th standard deviationOrdered By: Ritaspringlakekeron Marcdollyclaudio on 07-04-2024 Erythrocyte distribution width (RBC) [Ratio] 41.9 fl 35.1-43.9 [facility] Glomerular filtration rate ( GFR) estimation/1.73 sq m using serum, plasma, or whole bOrdered By: Keven Etienne on 07-04-2024 GFR/1.73 sq M.predicted among non-blacks MDRD (S/P/Bld) [Vol rate/Area] 86 mL/min/{1.73_m2} >60 [facility] Hematocrit Auto (Bld) [Volum e fraction]Ordered By: Keven Etienne on 07-04-2024 Hematocrit (Bld) [Volume fraction] 37.0 % Low 40-54 [facility] Hemoglobin measurementOrdere d By: Keven Etienne on 07-04-2024 Hemoglobin (Bld) [Mass/Vol] 12.2 g/dL Low 13.0-16.5 [facility] Immature granulocytes/100 WB C Auto (Bld)Ordered By: Keven Etienne on 07-04-2024 Immature granulocytes/100 WBC (Bld) 0.300 % 0.0-0.9 [facility] MCV (mean corpuscular volume ) determinationOrdered By: Edwarfrannycadenkeron Etienne on 07-04-2024 MCV (RBC) [Entitic vol] 88.5 fL 80-94 [facility] Mean corpuscular hemoglobin (MCH) determinationOrdered By: Bisikeron Marcmarisela on 07-04-2024 MCH (RBC) [Entitic mass] 29.2 pg 27.0-32.0 [facility] Monocyte percentageOrdered B y: Keven Monicomarisela on 07-04-2024 Monocytes/100 WBC (Bld) 9.2 % 0-10 [facility] Neutrophil percentageOrdered By: Keven Monicomarisela on 07-04-2024 Neutrophils/100 WBC (Bld) 45.2 % Low 47-70 [facility] Platelet countOrdered By: Edwar remedios Monicodollyclaudio on 07-04-2024 Platelets (Bld) [#/Vol] 187 10*3/uL 150-450 [facility] Potassium measurement (mass/ volume)Ordered By: Keven Etienne on 07-04-2024 Potassium (Unsp spec) [Mass/Vol] 4.4 mmol/L 3.3-5.1 [facility] RBC Auto (Bld) [#/Vol]Ordere d By: Keven Monicodollyclaudio on 07-04-2024 RBC (Bld) [#/Vol] 4.18 10*6/uL Low 4.6-6.2 [facility] Serum creatinine measurement (mass/volume)Ordered By: Keven Etienne on 07-04-2024 Creatinine [Mass/Vol] 0.87 mg/dL 0.70-1.20 [facility] Serum glucose measurement (m ass/volume)Ordered By: Keven Etienne on 07-04-2024 Glucose [Mass/Vol] 95 mg/dL 70-99 [facility] Serum or plasma calcium ratna urement (mass/volume)Ordered By: Keven Etienne on 07-04-2024 Calcium [Mass/Vol] 9.0 mg/dL 7.6-11.0 [facility] Serum or plasma urea nitroge n measurement (mass/volume)Ordered By: Keven Etienne on 07-04-2024 Urea nitrogen [Mass/Vol] 14 mg/dL - [facility] Sodium levelOrdered By: Rita juan alberto Jaimie on 07-04-2024 Sodium [Moles/Vol] 141 mmol/L 133-145 [facility] White blood cell (WBC) count Ordered By: Keven Etienne on 07-04-2024 WBC (Bld) [#/Vol] 6.6 10*3/uL 4.4-11.0 [facility] Absolute lymphocyte countOrd ered By: Keven Etienne on 06-26-2024 Lymphocytes Auto (Unsp spec) [#/Vol] 2.99 10*3/uL 0.83-4.51 [facility] Anion gap in Serum or Plasma Ordered By: Keven Etienne on 06-26-2024 Anion gap [Moles/Vol] 8 mmol/L 5-15 [facility] Automated lymphocyte count a s percentage of total leukocytesOrdered By: Keven Etienne on 06-26-2024 Lymphocytes/100 WBC Auto (Unsp spec) 45.0 % High 19-41 [facility] BUN/creatinine ratioOrdered By: Keven Etienne on 06-26-2024 Urea nitrogen/Creatinine [Mass ratio] 18.5 mg/mg 10-20 [facility] Basophil percentageOrdered B y: Keven Etienne on 06-26-2024 Basophils/100 WBC (Bld) 0.6 % 0-1 [facility] Carbon dioxide, total [Moles /volume] in Central venous bloodOrdered By: Keven Etienne on 06-26-2024 CO2 [Moles/Vol] 25.7 mmol/L 21.0-32.0 [facility] Chloride assayOrdered By: Edwar Etienne on 06-26-2024 Chloride [Moles/Vol] 105 mmol/L 98-108 [facility] Eosinophil percentageOrdered By: Keven Etienne on 06-26-2024 Eosinophils/100 WBC (Bld) 4.1 % 0-5 [facility] Erythrocyte distribution wid th ratioOrdered By: Keven Etienne on 06-26-2024 Erythrocyte distribution width (RBC) [Ratio] 13.0 % 11.6-14.6 [facility] Erythrocyte distribution wid th standard deviationOrdered By: Keven Etienne on 06-26-2024 Erythrocyte distribution width (RBC) [Ratio] 42.1 fl 35.1-43.9 [facility] Glomerular filtration rate ( GFR) estimation/1.73 sq m using serum, plasma, or whole bOrdered By: Keven Etienne on 06-26-2024 GFR/1.73 sq M.predicted among non-blacks MDRD (S/P/Bld) [Vol rate/Area] 85 mL/min/{1.73_m2} >60 [facility] Hematocrit Auto (Bld) [Volum e fraction]Ordered By: Ritaspringlakekeron Etienne on 06-26-2024 Hematocrit (Bld) [Volume fraction] 35.2 % Low 40-54 [facility] Hemoglobin measurementOrdere d By: Keven Etienne on 06-26-2024 Hemoglobin (Bld) [Mass/Vol] 11.7 g/dL Low 13.0-16.5 [facility] Immature granulocytes/100 WB C Auto (Bld)Ordered By: Keven Etienne on 06-26-2024 Immature granulocytes/100 WBC (Bld) 0.200 % 0.0-0.9 [facility] MCV (mean corpuscular volume ) determinationOrdered By: Keven Etienne on 06-26-2024 MCV (RBC) [Entitic vol] 88.4 fL 80-94 [facility] Mean corpuscular hemoglobin (MCH) determinationOrdered By: remedios Etienne on 06-26-2024 MCH (RBC) [Entitic mass] 29.4 pg 27.0-32.0 [facility] Monocyte percentageOrdered B y: Keven Etienne on 06-26-2024 Monocytes/100 WBC (Bld) 9.5 % 0-10 [facility] Neutrophil percentageOrdered By: Keven Etienne on 06-26-2024 Neutrophils/100 WBC (Bld) 40.6 % Low 47-70 [facility] Platelet countOrdered By: Edwar remedios Monicomarisela on 06-26-2024 Platelets (Bld) [#/Vol] 177 10*3/uL 150-450 [facility] Potassium measurement (mass/ volume)Ordered By: Keven Monicodollyclaudio on 06-26-2024 Potassium (Unsp spec) [Mass/Vol] 4.4 mmol/L 3.3-5.1 [facility] RBC Auto (Bld) [#/Vol]Ordere d By: Keven Monicomairsela on 06-26-2024 RBC (Bld) [#/Vol] 3.98 10*6/uL Low 4.6-6.2 [facility] Serum creatinine measurement (mass/volume)Ordered By: Keven Monicomarisela on 06-26-2024 Creatinine [Mass/Vol] 0.91 mg/dL 0.70-1.20 [facility] Serum glucose measurement (m ass/volume)Ordered By: Keven Marcdollyclaudio on 06-26-2024 Glucose [Mass/Vol] 90 mg/dL 70-99 [facility] Serum or plasma calcium ratna urement (mass/volume)Ordered By: Keven Monicomarisela on 06-26-2024 Calcium [Mass/Vol] 8.9 mg/dL 7.6-11.0 [facility] Serum or plasma urea nitroge n measurement (mass/volume)Ordered By: Bisikeron Marcdollyclaudio on 06-26-2024 Urea nitrogen [Mass/Vol] 17 mg/dL 4-19 [facility] Sodium levelOrdered By: Rita avendano Monicodollyclaudio on 06-26-2024 Sodium [Moles/Vol] 139 mmol/L 133-145 [facility] White blood cell (WBC) count Ordered By: Edwarfrannyjuan alberto Monicodollyclaudio on 06-26-2024 WBC (Bld) [#/Vol] 6.7 10*3/uL 4.4-11.0 [facility] Absolute lymphocyte countOrd ered By: Keven Monicodollyclaudio on 06-19-2024 Lymphocytes Auto (Unsp spec) [#/Vol] 2.85 10*3/uL 0.83-4.51 [facility] Anion gap in Serum or Plasma Ordered By: Keven Etienne on 06-19-2024 Anion gap [Moles/Vol] 10 mmol/L 5-15 [facility] Automated lymphocyte count a s percentage of total leukocytesOrdered By: Keven Etienne on 06-19-2024 Lymphocytes/100 WBC Auto (Unsp spec) 41.2 % High 19-41 [facility] BUN/creatinine ratioOrdered By: Keven Etienne on 06-19-2024 Urea nitrogen/Creatinine [Mass ratio] 24.2 mg/mg High 10-20 [facility] Basophil percentageOrdered B y: Keven Etienne on 06-19-2024 Basophils/100 WBC (Bld) 0.6 % 0-1 [facility] Carbon dioxide, total [Moles /volume] in Central venous bloodOrdered By: Ritaspringlakekeron Etienne on 06-19-2024 CO2 [Moles/Vol] 25.5 mmol/L 21.0-32.0 [facility] Chloride assayOrdered By: Edwar Etienne on 06-19-2024 Chloride [Moles/Vol] 105 mmol/L 98-108 [facility] Eosinophil percentageOrdered By: remedios Etienne on 06-19-2024 Eosinophils/100 WBC (Bld) 4.9 % 0-5 [facility] Erythrocyte distribution wid th ratioOrdered By: frannyspringlakekeron Etienne on 06-19-2024 Erythrocyte distribution width (RBC) [Ratio] 13.0 % 11.6-14.6 [facility] Erythrocyte distribution wid th standard deviationOrdered By: frannyspringlakekeron Etienne on 06-19-2024 Erythrocyte distribution width (RBC) [Ratio] 42.8 fl 35.1-43.9 [facility] Glomerular filtration rate ( GFR) estimation/1.73 sq m using serum, plasma, or whole bOrdered By: Keven Etienne on 06-19-2024 GFR/1.73 sq M.predicted among non-blacks MDRD (S/P/Bld) [Vol rate/Area] 86 mL/min/{1.73_m2} >60 [facility] Hematocrit Auto (Bld) [Volum e fraction]Ordered By: Keven Etienne on 06-19-2024 Hematocrit (Bld) [Volume fraction] 36.0 % Low 40-54 [facility] Hemoglobin measurementOrdere d By: Keven Etienne on 06-19-2024 Hemoglobin (Bld) [Mass/Vol] 11.8 g/dL Low 13.0-16.5 [facility] Immature granulocytes/100 WB C Auto (Bld)Ordered By: Keven Etienne on 06-19-2024 Immature granulocytes/100 WBC (Bld) 0.300 % 0.0-0.9 [facility] MCV (mean corpuscular volume ) determinationOrdered By: Keven Etienne on 06-19-2024 MCV (RBC) [Entitic vol] 90.0 fL 80-94 [facility] Mean corpuscular hemoglobin (MCH) determinationOrdered By: Keven Etienne on 06-19-2024 MCH (RBC) [Entitic mass] 29.5 pg 27.0-32.0 [facility] Monocyte percentageOrdered B y: Keven Etienne on 06-19-2024 Monocytes/100 WBC (Bld) 9.5 % 0-10 [facility] Neutrophil percentageOrdered By: Keven Etienne on 06-19-2024 Neutrophils/100 WBC (Bld) 43.5 % Low 47-70 [facility] Platelet countOrdered By: Edwar Etienne on 06-19-2024 Platelets (Bld) [#/Vol] 185 10*3/uL 150-450 [facility] Potassium measurement (mass/ volume)Ordered By: Keven Etienne on 06-19-2024 Potassium (Unsp spec) [Mass/Vol] 4.4 mmol/L 3.3-5.1 [facility] RBC Auto (Bld) [#/Vol]Ordere d By: Keven Etienne on 06-19-2024 RBC (Bld) [#/Vol] 4.00 10*6/uL Low 4.6-6.2 [facility] Serum creatinine measurement (mass/volume)Ordered By: Keven Etienne on 06-19-2024 Creatinine [Mass/Vol] 0.89 mg/dL 0.70-1.20 [facility] Serum glucose measurement (m ass/volume)Ordered By: Keven Etienne on 06-19-2024 Glucose [Mass/Vol] 91 mg/dL 70-99 [facility] Serum or plasma calcium ratna urement (mass/volume)Ordered By: Keven Etienne on 06-19-2024 Calcium [Mass/Vol] 9.0 mg/dL 7.6-11.0 [facility] Serum or plasma urea nitroge n measurement (mass/volume)Ordered By: Keven Etienne on 06-19-2024 Urea nitrogen [Mass/Vol] 22 mg/dL High 4-19 [facility] Sodium levelOrdered By: Rita pattonambika Jaimie on 06-19-2024 Sodium [Moles/Vol] 141 mmol/L 133-145 [facility] White blood cell (WBC) count Ordered By: Keven Etienne on 06-19-2024 WBC (Bld) [#/Vol] 6.9 10*3/uL 4.4-11.0 [facility] Absolute lymphocyte countOrd ered By: Keven Etienne on 06-12-2024 Lymphocytes Auto (Unsp spec) [#/Vol] 2.89 10*3/uL 0.83-4.51 [facility] Anion gap in Serum or Plasma Ordered By: Keven Etienne on 06-12-2024 Anion gap [Moles/Vol] 10 mmol/L 5-15 [facility] Automated lymphocyte count a s percentage of total leukocytesOrdered By: Keven Etienne on 06-12-2024 Lymphocytes/100 WBC Auto (Unsp spec) 41.1 % High 19-41 [facility] BUN/creatinine ratioOrdered By: Keven Etienne on 06-12-2024 Urea nitrogen/Creatinine [Mass ratio] 20.6 mg/mg High 10-20 [facility] Basophil percentageOrdered B y: Keven Etienne on 06-12-2024 Basophils/100 WBC (Bld) 0.3 % 0-1 [facility] Carbon dioxide, total [Moles /volume] in Central venous bloodOrdered By: Keven Etienne on 06-12-2024 CO2 [Moles/Vol] 24.3 mmol/L 21.0-32.0 [facility] Chloride assayOrdered By: Edwar Etienne on 06-12-2024 Chloride [Moles/Vol] 105 mmol/L 98-108 [facility] Eosinophil percentageOrdered By: Keven Etienne on 06-12-2024 Eosinophils/100 WBC (Bld) 3.6 % 0-5 [facility] Erythrocyte distribution wid th ratioOrdered By: Keven Etienne on 06-12-2024 Erythrocyte distribution width (RBC) [Ratio] 12.9 % 11.6-14.6 [facility] Erythrocyte distribution wid th standard deviationOrdered By: Keven Etienne on 06-12-2024 Erythrocyte distribution width (RBC) [Ratio] 41.6 fl 35.1-43.9 [facility] Glomerular filtration rate ( GFR) estimation/1.73 sq m using serum, plasma, or whole bOrdered By: Keven Etienne on 06-12-2024 GFR/1.73 sq M.predicted among non-blacks MDRD (S/P/Bld) [Vol rate/Area] 87 mL/min/{1.73_m2} >60 [facility] Hematocrit Auto (Bld) [Volum e fraction]Ordered By: Keven Etienne on 06-12-2024 Hematocrit (Bld) [Volume fraction] 34.2 % Low 40-54 [facility] Hemoglobin measurementOrdere d By: Keven Etienne on 06-12-2024 Hemoglobin (Bld) [Mass/Vol] 11.4 g/dL Low 13.0-16.5 [facility] Immature granulocytes/100 WB C Auto (Bld)Ordered By: Keven Etienne on 06-12-2024 Immature granulocytes/100 WBC (Bld) 0.100 % 0.0-0.9 [facility] MCV (mean corpuscular volume ) determinationOrdered By: Keven Etienne on 06-12-2024 MCV (RBC) [Entitic vol] 88.4 fL 80-94 [facility] Mean corpuscular hemoglobin (MCH) determinationOrdered By: Keven Monicodollyclaudio on 06-12-2024 MCH (RBC) [Entitic mass] 29.5 pg 27.0-32.0 [facility] Monocyte percentageOrdered B y: Bisikeron Marcdollyclaudio on 06-12-2024 Monocytes/100 WBC (Bld) 9.4 % 0-10 [facility] Neutrophil percentageOrdered By: Keven Monicodollyclaudio on 06-12-2024 Neutrophils/100 WBC (Bld) 45.5 % Low 47-70 [facility] Platelet countOrdered By: Edwar remedios Monicodollyclaudio on 06-12-2024 Platelets (Bld) [#/Vol] 188 10*3/uL 150-450 [facility] Potassium measurement (mass/ volume)Ordered By: Keven Etienne on 06-12-2024 Potassium (Unsp spec) [Mass/Vol] 4.2 mmol/L 3.3-5.1 [facility] RBC Auto (Bld) [#/Vol]Ordere d By: Keven Monicodollyclaudio on 06-12-2024 RBC (Bld) [#/Vol] 3.87 10*6/uL Low 4.6-6.2 [facility] Serum creatinine measurement (mass/volume)Ordered By: Keven Etienne on 06-12-2024 Creatinine [Mass/Vol] 0.85 mg/dL 0.70-1.20 [facility] Serum glucose measurement (m ass/volume)Ordered By: Keven Etienne on 06-12-2024 Glucose [Mass/Vol] 94 mg/dL 70-99 [facility] Serum or plasma calcium ratna urement (mass/volume)Ordered By: Edwarremedios Etienne on 06-12-2024 Calcium [Mass/Vol] 8.9 mg/dL 7.6-11.0 [facility] Serum or plasma urea nitroge n measurement (mass/volume)Ordered By: Keven Etienne on 06-12-2024 Urea nitrogen [Mass/Vol] 18 mg/dL 4-19 [facility] Sodium levelOrdered By: Rita juan alberto Jaimie on 06-12-2024 Sodium [Moles/Vol] 140 mmol/L 133-145 [facility] White blood cell (WBC) count Ordered By: Keven Etienne on 06-12-2024 WBC (Bld) [#/Vol] 7.0 10*3/uL 4.4-11.0 [facility] Absolute lymphocyte countOrd ered By: Keven Etienne on 06-05-2024 Lymphocytes Auto (Unsp spec) [#/Vol] 2.57 10*3/uL 0.83-4.51 [facility] Anion gap in Serum or Plasma Ordered By: Keven Etienne on 06-05-2024 Anion gap [Moles/Vol] 10 mmol/L 5-15 [facility] Automated lymphocyte count a s percentage of total leukocytesOrdered By: Keven Etienne on 06-05-2024 Lymphocytes/100 WBC Auto (Unsp spec) 40.3 % - [facility] BUN/creatinine ratioOrdered By: Keven Etienne on 06-05-2024 Urea nitrogen/Creatinine [Mass ratio] 17.2 mg/mg 10-20 [facility] Basophil percentageOrdered B y: Keven Etienne on 06-05-2024 Basophils/100 WBC (Bld) 0.5 % 0-1 [facility] Carbon dioxide, total [Moles /volume] in Central venous bloodOrdered By: Keven Etienne on 06-05-2024 CO2 [Moles/Vol] 25.7 mmol/L 21.0-32.0 [facility] Chloride assayOrdered By: Edwar Etienne on 06-05-2024 Chloride [Moles/Vol] 106 mmol/L 98-108 [facility] Eosinophil percentageOrdered By: Keven Etienne on 06-05-2024 Eosinophils/100 WBC (Bld) 5.2 % High 0-5 [facility] Erythrocyte distribution wid th ratioOrdered By: Keven Etienne on 06-05-2024 Erythrocyte distribution width (RBC) [Ratio] 12.5 % 11.6-14.6 [facility] Erythrocyte distribution wid th standard deviationOrdered By: Keven Etienne on 06-05-2024 Erythrocyte distribution width (RBC) [Ratio] 40.6 fl 35.1-43.9 [facility] Glomerular filtration rate ( GFR) estimation/1.73 sq m using serum, plasma, or whole bOrdered By: Keven Etienne on 06-05-2024 GFR/1.73 sq M.predicted among non-blacks MDRD (S/P/Bld) [Vol rate/Area] 87 mL/min/{1.73_m2} >60 [facility] Hematocrit Auto (Bld) [Volum e fraction]Ordered By: Keven Etienne on 06-05-2024 Hematocrit (Bld) [Volume fraction] 35.3 % Low 40-54 [facility] Hemoglobin measurementOrdere d By: Keven Etienne on 06-05-2024 Hemoglobin (Bld) [Mass/Vol] 11.9 g/dL Low 13.0-16.5 [facility] Immature granulocytes/100 WB C Auto (Bld)Ordered By: Keven Etienne on 06-05-2024 Immature granulocytes/100 WBC (Bld) 0.300 % 0.0-0.9 [facility] MCV (mean corpuscular volume ) determinationOrdered By: Keven Etienne on 06-05-2024 MCV (RBC) [Entitic vol] 88.7 fL 80-94 [facility] Mean corpuscular hemoglobin (MCH) determinationOrdered By: Keven Etienne on 06-05-2024 MCH (RBC) [Entitic mass] 29.9 pg 27.0-32.0 [facility] Monocyte percentageOrdered B y: Keven Etienne on 06-05-2024 Monocytes/100 WBC (Bld) 10.8 % High 0-10 [facility] Neutrophil percentageOrdered By: Keven Etienne on 06-05-2024 Neutrophils/100 WBC (Bld) 42.9 % Low 47-70 [facility] Platelet countOrdered By: Edwar Etienne on 06-05-2024 Platelets (Bld) [#/Vol] 163 10*3/uL 150-450 [facility] Potassium measurement (mass/ volume)Ordered By: Keven Etienne on 06-05-2024 Potassium (Unsp spec) [Mass/Vol] 4.2 mmol/L 3.3-5.1 [facility] RBC Auto (Bld) [#/Vol]Ordere d By: Keven Etienne on 06-05-2024 RBC (Bld) [#/Vol] 3.98 10*6/uL Low 4.6-6.2 [facility] Serum creatinine measurement (mass/volume)Ordered By: Keven Etienne on 06-05-2024 Creatinine [Mass/Vol] 0.86 mg/dL 0.70-1.20 [facility] Serum glucose measurement (m ass/volume)Ordered By: Keven Etienne on 06-05-2024 Glucose [Mass/Vol] 95 mg/dL 70-99 [facility] Serum or plasma calcium ratna urement (mass/volume)Ordered By: Keven Etienne on 06-05-2024 Calcium [Mass/Vol] 9.0 mg/dL 7.6-11.0 [facility] Serum or plasma urea nitroge n measurement (mass/volume)Ordered By: Keven Etienne on 06-05-2024 Urea nitrogen [Mass/Vol] 15 mg/dL 4-19 [facility] Sodium levelOrdered By: Rita Etienne on 06-05-2024 Sodium [Moles/Vol] 142 mmol/L 133-145 [facility] White blood cell (WBC) count Ordered By: Keven Etienne on 06-05-2024 WBC (Bld) [#/Vol] 6.4 10*3/uL 4.4-11.0 [facility] Cerv Spine 2 or 3 Viewson Cerv Spine 2 or 3 Views Normal [facility] Orthopedic Visit Reporton Orthopedic Visit Report Normal [facility] Absolute lymphocyte countOrd ered By: Keven Etienne on 05-29-2024 Lymphocytes Auto (Unsp spec) [#/Vol] 2.20 10*3/uL 0.83-4.51 [facility] Absolute neutrophil countOrd ered By: Keven Etienne on 05-29-2024 Neutrophils (Bld) [#/Vol] 3.3 10*3/uL 2.0-7.7 [facility] Anion gap in Serum or Plasma Ordered By: Keven Etienne on 05-29-2024 Anion gap [Moles/Vol] 10 mmol/L 5-15 [facility] Automated lymphocyte count a s percentage of total leukocytesOrdered By: Keven Etienne on 05-29-2024 Lymphocytes/100 WBC Auto (Unsp spec) 34.3 % 19- [facility] BUN/creatinine ratioOrdered By: frannyspringlakekeron Etienne on 05-29-2024 Urea nitrogen/Creatinine [Mass ratio] 19.7 mg/mg 10-20 [facility] Basophil percentageOrdered B y: Keven Etienne on 05-29-2024 Basophils/100 WBC (Bld) 0.6 % 0-1 [facility] Carbon dioxide, total [Moles /volume] in Central venous bloodOrdered By: Keven Etienne on 05-29-2024 CO2 [Moles/Vol] 25.2 mmol/L 21.0-32.0 [facility] Chloride assayOrdered By: Edwar Etienne on 05-29-2024 Chloride [Moles/Vol] 108 mmol/L 98-108 [facility] Eosinophil percentageOrdered By: Keven Etienne on 05-29-2024 Eosinophils/100 WBC (Bld) 4.2 % 0-5 [facility] Erythrocyte distribution wid th (RBC) [Ratio]Ordered By: Keven Etienne on 05-29-2024 Erythrocyte distribution width (RBC) [Entitic vol] 41.1 fL 35.1-43.9 [facility] Erythrocyte distribution wid th ratioOrdered By: remedios Etienne on 05-29-2024 Erythrocyte distribution width (RBC) [Ratio] 12.6 % 11.6-14.6 [facility] Erythrocyte distribution wid th standard deviationOrdered By: Keven Etienne on 05-29-2024 Erythrocyte distribution width (RBC) [Ratio] 41.1 fl 35.1-43.9 [facility] GFR/1.73 sq M.predicted darrick g non-blacks MDRD (S/P/Bld) [Vol rate/Area]Ordered By: Keven Etienne on 05-29-2024 Estimated GFR (MDRD) Non-Af Amer 78 >60 [facility] Comment on above: mL/min/1.73m2 CKD-EP I Creatinine Equation (2020) Glomerular filtration rate ( GFR) estimation/1.73 sq m using serum, plasma, or whole bOrdered By: Keven Etienne on 05-29-2024 GFR/1.73 sq M.predicted among non-blacks MDRD (S/P/Bld) [Vol rate/Area] 78 mL/min/{1.73_m2} >60 [facility] Hematocrit Auto (Bld) [Volum e fraction]Ordered By: Keven Etienne on 05-29-2024 Hematocrit (Bld) [Volume fraction] 37.4 % Low 40-54 [facility] Hemoglobin measurementOrdere d By: Keven Etienne on 05-29-2024 Hemoglobin (Bld) [Mass/Vol] 12.3 g/dL Low 13.0-16.5 [facility] Immature granulocytes/100 WB C Auto (Bld)Ordered By: Keven Etienne on 05-29-2024 Immature granulocytes/100 WBC (Bld) 0.500 % 0.0-0.9 [facility] Comment on above: IG% - Immature Granu locytes (promyelocytes, myelocytes and metamyelocytes) > 1% indicates that a LEFT SHIFT is Present. Lymphocytes Auto (Unsp spec) [#/Vol]Ordered By: Keven Etienne on 05-29-2024 Lymphocytes (Bld) [#/Vol] 2.20 10*3/uL 0.83-4.51 [facility] Lymphocytes/100 WBC Auto (Un sp spec)Ordered By: Keven Etienne on 05-29-2024 Lymphocytes/100 WBC (Bld) 34.3 % 19-41 [facility] MCV (mean corpuscular volume ) determinationOrdered By: Keven Etienne on 05-29-2024 MCV (RBC) [Entitic vol] 89.3 fL 80-94 [facility] Mean corpuscular hemoglobin (MCH) determinationOrdered By: Keven Etienne on 05-29-2024 MCH (RBC) [Entitic mass] 29.4 pg 27.0-32.0 [facility] Mean corpuscular hemoglobin concentration (MCHC) determinationOrdered By: Keven Etienne on 05-29-2024 MCHC (RBC) [Mass/Vol] 32.9 g/dL 32-36 [facility] Mean platelet volume determi nationOrdered By: Keven Etienne on 05-29-2024 Platelet mean volume (Bld) [Entitic vol] 9.2 fL 6.2-12.0 [facility] Monocyte percentageOrdered B y: Keven Etienne on 05-29-2024 Monocytes/100 WBC (Bld) 8.4 % 0-10 [facility] Neutrophil percentageOrdered By: Keven Etienne on 05-29-2024 Neutrophils/100 WBC (Bld) 52.0 % 47-70 [facility] Nucleated red blood cell per centageOrdered By: Keven Etienne on 05-29-2024 Nucleated RBC/100 WBC (Bld) [Ratio] 0 % 0-5 [facility] Platelet countOrdered By: Edwar Etienne on 05-29-2024 Platelets (Bld) [#/Vol] 185 10*3/uL 150-450 [facility] Potassium (Unsp spec) [Mass/ Vol]Ordered By: Keven Etienne on 05-29-2024 Potassium [Moles/Vol] 4.3 mmol/L 3.3-5.1 [facility] Potassium measurement (mass/ volume)Ordered By: Keven Etienne on 05-29-2024 Potassium (Unsp spec) [Mass/Vol] 4.3 mmol/L 3.3-5.1 [facility] RBC Auto (Bld) [#/Vol]Ordere d By: Keven Etienne on 05-29-2024 RBC (Bld) [#/Vol] 4.19 10*6/uL Low 4.6-6.2 [facility] Serum creatinine measurement (mass/volume)Ordered By: Keven Etienne on 05-29-2024 Creatinine [Mass/Vol] 0.97 mg/dL 0.70-1.20 [facility] Serum glucose measurement (m ass/volume)Ordered By: Keven Etienne on 05-29-2024 Glucose [Mass/Vol] 95 mg/dL 70-99 [facility] Serum or plasma calcium ratna urement (mass/volume)Ordered By: Keven Etienne on 05-29-2024 Calcium [Mass/Vol] 8.8 mg/dL 7.6-11.0 [facility] Serum or plasma urea nitroge n measurement (mass/volume)Ordered By: Keven Etienne on 05-29-2024 Urea nitrogen [Mass/Vol] 19 mg/dL 4-19 [facility] Sodium levelOrdered By: Rita Etienne on 05-29-2024 Sodium [Moles/Vol] 143 mmol/L 133-145 [facility] White blood cell (WBC) count Ordered By: Keven Etienne on 05-29-2024 WBC (Bld) [#/Vol] 6.4 10*3/uL 4.4-11.0 [facility] Abdomen Single Viewon 2024 Abdomen Single View Normal [facility] Gastroenterology Visit Repor ton 05-25-2024 Gastroenterology Visit Report Normal [facility] Absolute lymphocyte countOrd ered By: Keven Etienne on 05-22-2024 Lymphocytes Auto (Unsp spec) [#/Vol] 2.46 10*3/uL 0.83-4.51 [facility] Absolute neutrophil countOrd ered By: Keven Etienne on 05-22-2024 Neutrophils (Bld) [#/Vol] 4.3 10*3/uL 2.0-7.7 [facility] Anion gap in Serum or Plasma Ordered By: Keven Etienne on 05-22-2024 Anion gap [Moles/Vol] 10 mmol/L 5-15 [facility] Automated lymphocyte count a s percentage of total leukocytesOrdered By: Keven Etienne on 05-22-2024 Lymphocytes/100 WBC Auto (Unsp spec) 32.5 % 19-41 [facility] BUN/creatinine ratioOrdered By: Keven Etienne on 05-22-2024 Urea nitrogen/Creatinine [Mass ratio] 24.1 mg/mg High 10-20 [facility] Basophil percentageOrdered B y: Keven Etienne on 05-22-2024 Basophils/100 WBC (Bld) 0.5 % 0-1 [facility] Bilirubin, totalOrdered By: Keven Etienne on 05-22-2024 Bilirubin [Mass/Vol] 0.44 mg/dL 0.00-1.30 [facility] Carbon dioxide, total [Moles /volume] in Central venous bloodOrdered By: Keven Etienne on 05-22-2024 CO2 [Moles/Vol] 23.9 mmol/L 21.0-32.0 [facility] Chloride assayOrdered By: Edwar Etienne on 05-22-2024 Chloride [Moles/Vol] 104 mmol/L 98-108 [facility] Eosinophil percentageOrdered By: Keven Etienne on 05-22-2024 Eosinophils/100 WBC (Bld) 2.5 % 0-5 [facility] Erythrocyte distribution wid th (RBC) [Ratio]Ordered By: Keven Etienne on 05-22-2024 Erythrocyte distribution width (RBC) [Entitic vol] 41.4 fL 35.1-43.9 [facility] Erythrocyte distribution wid th ratioOrdered By: Keven Etienne on 05-22-2024 Erythrocyte distribution width (RBC) [Ratio] 12.7 % 11.6-14.6 [facility] Erythrocyte distribution wid th standard deviationOrdered By: Keven Etienne on 05-22-2024 Erythrocyte distribution width (RBC) [Ratio] 41.4 fl 35.1-43.9 [facility] GFR/1.73 sq M.predicted darrick g non-blacks MDRD (S/P/Bld) [Vol rate/Area]Ordered By: Keven Etienne on 05-22-2024 Estimated GFR (MDRD) Non-Af Amer 73 >60 [facility] Comment on above: mL/min/1.73m2 CKD-EP I Creatinine Equation (2020) Glomerular filtration rate ( GFR) estimation/1.73 sq m using serum, plasma, or whole bOrdered By: Keven Etienne on 05-22-2024 GFR/1.73 sq M.predicted among non-blacks MDRD (S/P/Bld) [Vol rate/Area] 73 mL/min/{1.73_m2} >60 [facility] Hematocrit Auto (Bld) [Volum e fraction]Ordered By: Keven Etienne on 05-22-2024 Hematocrit (Bld) [Volume fraction] 36.8 % Low 40-54 [facility] Hemoglobin measurementOrdere d By: Keven Etienne on 05-22-2024 Hemoglobin (Bld) [Mass/Vol] 12.1 g/dL Low 13.0-16.5 [facility] Immature granulocytes/100 WB C Auto (Bld)Ordered By: Keven Etienne on 05-22-2024 Immature granulocytes/100 WBC (Bld) 0.500 % 0.0-0.9 [facility] Comment on above: IG% - Immature Granu locytes (promyelocytes, myelocytes and metamyelocytes) > 1% indicates that a LEFT SHIFT is Present. Laboratory - Chemistry and C hemistry - challengeOrdered By: Keven Etienne on 05-22-2024 AST [Catalytic activity/Vol] 33 U/L <38 [facility] Comment on above: Hemolysis present, R esults could be affected. Lymphocytes Auto (Unsp spec) [#/Vol]Ordered By: Keven Etienne on 05-22-2024 Lymphocytes (Bld) [#/Vol] 2.46 10*3/uL 0.83-4.51 [facility] Lymphocytes/100 WBC Auto (Un sp spec)Ordered By: Keven Etienne on 05-22-2024 Lymphocytes/100 WBC (Bld) 32.5 % 19-41 [facility] MCV (mean corpuscular volume ) determinationOrdered By: Keven Etienne on 05-22-2024 MCV (RBC) [Entitic vol] 89.1 fL 80-94 [facility] Mean corpuscular hemoglobin (MCH) determinationOrdered By: Keven Etienne on 05-22-2024 MCH (RBC) [Entitic mass] 29.3 pg 27.0-32.0 [facility] Mean corpuscular hemoglobin concentration (MCHC) determinationOrdered By: Keven Etienne on 05-22-2024 MCHC (RBC) [Mass/Vol] 32.9 g/dL 32-36 [facility] Mean platelet volume determi nationOrdered By: Keven Etienne on 05-22-2024 Platelet mean volume (Bld) [Entitic vol] 8.7 fL 6.2-12.0 [facility] Monocyte percentageOrdered B y: Keven Etienne on 05-22-2024 Monocytes/100 WBC (Bld) 7.4 % 0-10 [facility] [facility] Neutrophil percentageOrdered By: Keven Etienne on 05-22-2024 Neutrophils/100 WBC (Bld) 56.6 % 47-70 [facility] No Panel InformationOrdered By: Keven Etienne on 05-22-2024 33 U/L <38 [facility] Nucleated red blood cell per centageOrdered By: Kveen Etienne on 05-22-2024 Nucleated RBC/100 WBC (Bld) [Ratio] 0 % 0-5 [facility] Platelet countOrdered By: Edwar Etienne on 05-22-2024 Platelets (Bld) [#/Vol] 217 10*3/uL 150-450 [facility] Potassium (Unsp spec) [Mass/ Vol]Ordered By: Keven Etienne on 05-22-2024 Potassium [Moles/Vol] 4.3 mmol/L 3.3-5.1 [facility] Comment on above: Hemolysis present, R esults could be affected. Potassium measurement (mass/ volume)Ordered By: Keevn Etienne on 05-22-2024 Potassium (Unsp spec) [Mass/Vol] 4.3 mmol/L 3.3-5.1 [facility] RBC Auto (Bld) [#/Vol]Ordere d By: Keven Etienne on 05-22-2024 RBC (Bld) [#/Vol] 4.13 10*6/uL Low 4.6-6.2 [facility] Serum creatinine measurement (mass/volume)Ordered By: Keven Etienne on 05-22-2024 Creatinine [Mass/Vol] 1.03 mg/dL 0.70-1.20 [facility] Serum globulin measurementOr dered By: Keven Etienne on 05-22-2024 Globulin (S) [Mass/Vol] 2.4 g/dL 2.2-4.2 [facility] Serum glucose measurement (m ass/volume)Ordered By: Keven Etienne on 05-22-2024 Glucose [Mass/Vol] 91 mg/dL 70-99 [facility] Serum or plasma alanine olmedo otransferase (ALT) measurementOrdered By: Keven Etienne on 05-22-2024 ALT [Catalytic activity/Vol] 44 U/L <47 [facility] Serum or plasma albumin ratna urement (mass/volume)Ordered By: Keven Etienne 05-22-2024 Albumin [Mass/Vol] 3.3 g/dL Low 3.4-4.8 [facility] Serum or plasma albumin/glob ulin mass ratioOrdered By: Keven Etienne 05-22-2024 Albumin/Globulin [Mass ratio] 1.4 {ratio} 0.9-2.4 [facility] Serum or plasma alkaline garry sphatase measurementOrdered By: Keven Etienne 05-22-2024 ALP [Catalytic activity/Vol] 139 U/L High 40-129 [facility] Serum or plasma calcium ratna urement (mass/volume)Ordered By: Keven Etienne 05-22-2024 Calcium [Mass/Vol] 8.8 mg/dL 7.6-11.0 [facility] Serum or plasma urea nitroge n measurement (mass/volume)Ordered By: Keven Etienne on 05-22-2024 Urea nitrogen [Mass/Vol] 25 mg/dL High 4-19 [facility] Sodium levelOrdered By: Rita Etienne on 05-22-2024 Sodium [Moles/Vol] 139 mmol/L 133-145 [facility] Total proteinOrdered By: Roby Etienne on 05-22-2024 Protein [Mass/Vol] 5.8 g/dL Low 5.9-8.4 [facility] White blood cell (WBC) count Ordered By: Keven Etienne on 05-22-2024 WBC (Bld) [#/Vol] 7.6 10*3/uL 4.4-11.0 [facility] Urine Cultureon 05-12-2024 URC Normal [facility] Comment on above: Performed By: #### L 400.0001, M100.2200 ####[facility] [address] [place], [address] Anion gap in Serum or Plasma Ordered By: Corazon Kyle on 05-11-2024 Anion gap [Moles/Vol] 10 mmol/L 5-15 [facility] BUN/creatinine ratioOrdered By: Corazon Romogavin on 05-11-2024 Urea nitrogen/Creatinine [Mass ratio] 35.5 mg/mg High 10-20 [facility] Basic Metabolic Profile (BMP )on 05-11-2024 BUN/CRE 35.5 RATIO High 10-20 [facility] Comment on above: Performed By: #### L 500.2500, L100.0500 ####[facility] [address] [place], [address] Calcium [Mass/Vol] 8.6 mg/dL Normal 7.6-11.0 [facility] Comment on above: Performed By: #### L 500.2500, L100.0500 ####[facility] [address] [place], [address] Chloride [Moles/Vol] 104 mmol/L Normal 98-108 [facility] Comment on above: Performed By: #### L 500.2500, L100.0500 ####[facility] [address] [place], [address] CO2 [Moles/Vol] 23.4 mmol/L Normal 21.0-32.0 [facility] Comment on above: Performed By: #### L 500.2500, L100.0500 ####[facility] [address] [place], [address] Creatinine [Mass/Vol] 0.96 mg/dL Normal 0.70-1.20 [facility] Comment on above: Performed By: #### L 500.2500, L100.0500 ####[facility] [address] [place], [address] ECRCL 57.40 ml/min Normal 50-250 [facility] Comment on above: Performed By: #### L 500.2500, L100.0500 ####[facility] [address] [place], [address] GAP 10 Normal 5-15 [facility] Comment on above: Performed By: #### L 500.2500, L100.0500 ####[facility] [address] [place], [address] GFR/1.73 sq M.predicted among non-blacks MDRD (S/P/Bld) [Vol rate/Area] 79 mL/min/{1.73_m2} Normal >60 [facility] Comment on above: Result Comment: mL/m in/1.73m2 CKD-EPI Creatinine Equation (2020) Performed By: #### L 500.2500, L100.0500 ####[facility] [address] [place], [address] Glucose [Mass/Vol] 116 mg/dL High 70-99 [facility] Comment on above: Performed By: #### L 500.2500, L100.0500 ####[facility] [address] [place], [address] Potassium [Moles/Vol] 4.5 mmol/L Normal 3.3-5.1 [facility] Comment on above: Performed By: #### L 500.2500, L100.0500 ####[facility] [address] [place], [address] Sodium [Moles/Vol] 137 mmol/L Normal 133-145 [facility] Comment on above: Performed By: #### L 500.2500, L100.0500 ####[facility] [address] [place], [address] Urea nitrogen [Mass/Vol] 34 mg/dL High 4-19 [facility] Comment on above: Performed By: #### L 500.2500, L100.0500 ####[facility] [address] [place], [address] CBC-Complete Blood Cnt No ffon 05-11-2024 Erythrocyte distribution width (RBC) [Ratio] 12.8 % Normal 11.6-14.6 [facility] Comment on above: Performed By: #### L 500.2500, L100.0500 ####[facility] [address] [place], [address] Hematocrit (Bld) [Volume fraction] 36.7 % Low 40-54 [facility] Comment on above: Performed By: #### L 500.2500, L100.0500 ####[facility] [address] [place], [address] Hemoglobin (Bld) [Mass/Vol] 12.3 g/dL Low 13.0-16.5 [facility] Comment on above: Performed By: #### L 500.2500, L100.0500 ####[facility] [address] [place], [address] MCH (RBC) [Entitic mass] 29.9 pg Normal 27.0-32.0 [facility] Comment on above: Performed By: #### L 500.2500, L100.0500 ####[facility] [address] [place], [address] MCHC (RBC) [Mass/Vol] 33.5 g/dL Normal 32-36 [facility] Comment on above: Performed By: #### L 500.2500, L100.0500 ####[facility] [address] [place], [address] MCV (RBC) [Entitic vol] 89.1 fL Normal 80-94 [facility] Comment on above: Performed By: #### L 500.2500, L100.0500 ####[facility] [address] [place], [address] Platelet mean volume (Bld) [Entitic vol] 8.8 fL Normal 6.2-12.0 [facility] Comment on above: Performed By: #### L 500.2500, L100.0500 ####[facility] [address] [place], [address] Platelets (Bld) [#/Vol] 232 10*3/uL Normal 150-450 [facility] Comment on above: Performed By: #### L 500.2500, L100.0500 ####[facility] [address] [place], [address] RBC (Bld) [#/Vol] 4.12 10*6/uL Low 4.6-6.2 [facility] Comment on above: Performed By: #### L 500.2500, L100.0500 ####[facility] [address] [place], [address] RDW SD 41.8 fl Normal 35.1-43.9 [facility] Comment on above: Performed By: #### L 500.2500, L100.0500 ####[facility] [address] [place], [address] WBC (Bld) [#/Vol] 9.9 10*3/uL Normal 4.4-11.0 [facility] Comment on above: Performed By: #### L 500.2500, L100.0500 ####[facility] [address] [place], [address] Carbon dioxide, total [Moles /volume] in Central venous bloodOrdered By: Corazon Wright on 05-11-2024 CO2 [Moles/Vol] 23.4 mmol/L 21.0-32.0 [facility] Chloride assayOrdered By: Phil Wright on 05-11-2024 Chloride [Moles/Vol] 104 mmol/L 98-108 [facility] Erythrocyte distribution wid th (RBC) [Ratio]Ordered By: Corazon Wright on 05-11-2024 Erythrocyte distribution width (RBC) [Entitic vol] 41.8 fL 35.1-43.9 [facility] Erythrocyte distribution wid th ratioOrdered By: Corazon Wright on 05-11-2024 Erythrocyte distribution width (RBC) [Ratio] 12.8 % 11.6-14.6 [facility] Erythrocyte distribution wid th standard deviationOrdered By: Corazon Wright on 05-11-2024 Erythrocyte distribution width (RBC) [Ratio] 41.8 fl 35.1-43.9 [facility] Estimation of creatinine yahir aranceOrdered By: Corazon Wright on 05-11-2024 Estimated Creatinine Clearance Calc 57.40 ml/min 50-250 [facility] GFR/1.73 sq M.predicted darrick g non-blacks MDRD (S/P/Bld) [Vol rate/Area]Ordered By: Corazon Wright on 05-11-2024 Estimated GFR (MDRD) Non-Af Amer 79 >60 [facility] Comment on above: mL/min/1.73m2 CKD-EP I Creatinine Equation (2020) Glomerular filtration rate ( GFR) estimation/1.73 sq m using serum, plasma, or whole bOrdered By: Corazon Wright on 05-11-2024 GFR/1.73 sq M.predicted among non-blacks MDRD (S/P/Bld) [Vol rate/Area] 79 mL/min/{1.73_m2} >60 [facility] Hematocrit Auto (Bld) [Volum e fraction]Ordered By: Corazon Wright on 05-11-2024 Hematocrit (Bld) [Volume fraction] 36.7 % Low 40-54 [facility] Hemoglobin measurementOrdere d By: Corazon Wright on 05-11-2024 Hemoglobin (Bld) [Mass/Vol] 12.3 g/dL Low 13.0-16.5 [facility] MCV (mean corpuscular volume ) determinationOrdered By: Corazon Wright on 05-11-2024 MCV (RBC) [Entitic vol] 89.1 fL 80-94 [facility] Mean corpuscular hemoglobin (MCH) determinationOrdered By: Corazon Wright on 05-11-2024 MCH (RBC) [Entitic mass] 29.9 pg 27.0-32.0 [facility] Mean corpuscular hemoglobin concentration (MCHC) determinationOrdered By: Corazon Wright on 05-11-2024 MCHC (RBC) [Mass/Vol] 33.5 g/dL 32-36 [facility] Mean platelet volume determi nationOrdered By: Corazon Wright on 05-11-2024 Platelet mean volume (Bld) [Entitic vol] 8.8 fL 6.2-12.0 [facility] Platelet countOrdered By: Phil Wright on 05-11-2024 Platelets (Bld) [#/Vol] 232 10*3/uL 150-450 [facility] Potassium (Unsp spec) [Mass/ Vol]Ordered By: Corazon Wright on 05-11-2024 Potassium [Moles/Vol] 4.5 mmol/L 3.3-5.1 [facility] Potassium measurement (mass/ volume)Ordered By: Corazon Wright on 05-11-2024 Potassium (Unsp spec) [Mass/Vol] 4.5 mmol/L 3.3-5.1 [facility] RBC Auto (Bld) [#/Vol]Ordere d By: Corazon Wright on 05-11-2024 RBC (Bld) [#/Vol] 4.12 10*6/uL Low 4.6-6.2 [facility] Serum creatinine measurement (mass/volume)Ordered By: Corazon Wright on 05-11-2024 Creatinine [Mass/Vol] 0.96 mg/dL 0.70-1.20 [facility] Serum glucose measurement (m ass/volume)Ordered By: Corazon Wright on 05-11-2024 Glucose [Mass/Vol] 116 mg/dL High 70-99 [facility] Serum or plasma calcium ratna urement (mass/volume)Ordered By: Corazon Wright on 05-11-2024 Calcium [Mass/Vol] 8.6 mg/dL 7.6-11.0 [facility] Serum or plasma urea nitroge n measurement (mass/volume)Ordered By: Corazon Wright on 05-11-2024 Urea nitrogen [Mass/Vol] 34 mg/dL High 4-19 [facility] Sodium levelOrdered By: Corazon Wright on 05-11-2024 Sodium [Moles/Vol] 137 mmol/L 133-145 [facility] White blood cell (WBC) count Ordered By: Corazon Wright on 05-11-2024 WBC (Bld) [#/Vol] 9.9 10*3/uL 4.4-11.0 [facility] Bilirubin Test strip Ql (U)O rdered By: Mariano Chan on 05-10-2024 Bilirubin Ql (U) Negative Negative [facility] Cerv Spine 2 or 3 Viewson Cerv Spine 2 or 3 Views Normal [facility] Epithelial cells.squamous LM Ql (Urine sed)Ordered By: Mariano Chan on 05-10-2024 Epithelial cells.squamous LM.HPF (Urine sed) [#/Area] 0 /[HPF] 0-5 [facility] Glucose Ql (U)Ordered By: Fabian Chan on 05-10-2024 Urine Glucose (UA) Normal mg/dl Normal [facility] Ketones Test strip Ql (U)Ord ered By: Mariano Chan on 05-10-2024 Ketones Ql (U) Negative Negative [facility] Microscopic analysis of urin e for red blood cells (RBC)Ordered By: Mariano Chan on 05-10-2024 Urine RBC 10-25 SEEN /hpf 0-5 [facility] Mucus LM Ql (Urine sed)Order ed By: Mariano Chan on 05-10-2024 Mucus Ql (Urine sed) 0 SEEN /hpf [facility] Nitrite Test strip Ql (U)Ord ered By: Mariano Dustin on 05-10-2024 Nitrite Ql (U) Positive High Negative [facility] Protein Test strip Ql (U)Ord ered By: Mariano Chan on 05-10-2024 Protein Ql (U) 500 mg/dl High Negative [facility] Squamous epithelial cells de tection in urine sediment by light microscopyOrdered By: Mariano Chan on 05-10-2024 Epithelial cells.squamous LM Ql (Urine sed) 0 SEEN /hpf 0-5 [facility] Urinalysis, Completeon 05-10 BACTERIA 2+ /hpf Normal None Seen [facility] Comment on above: Order Comment: YOSVANY TER SPECIMEN Performed By: #### L 400.0001, M100.0 ####[facility] [address] [place], [address] RBC 10-25 SEEN Normal [address] [place] [address] Comment on above: Order Comment: YOSVANY TER SPECIMEN Performed By: #### L 400.0001, M100.0 ####[facility] [address] [place], [address] WBC 25-50 SEEN Normal [address] Comment on above: Order Comment: YOSVANY TER SPECIMEN Performed By: #### L 400.0001, M100.2200 ####[facility] [address] [place], [address] EPI,SQUAMOUS 0 SEEN Normal [address] Comment on above: Order Comment: YOSVANY TER SPECIMEN Performed By: #### L 400.0001, M100.2200 ####[facility] [address] [place], [address] Mucus Ql (Urine sed) 0 SEEN Normal [facility] Comment on above: Order Comment: YOSVANY TER SPECIMEN Performed By: #### L 400.0001, M100.2200 ####[facility] [address] [place], [address] Urine blood detectionOrdered By: Mariano Chan on 05-10-2024 Urine Occult Blood 250 /ul High Negative [facility] Urine clarityOrdered By: Mariano Chan on 05-10-2024 Clarity (U) Sl. Cloudy Clear [facility] Urine color determinationOrd ered By: Mariano Chan on 05-10-2024 Color (U) Yellow Yellow [facility] Urine cultureOrdered By: Mariano Chan on 05-10-2024 Bacteria identified Cx Nom (U) Enterobacter cloacae complex Abnormal [facility] Urine glucose detectionOrder ed By: Mariano Chan on 05-10-2024 Glucose Ql (U) Normal mg/dl Normal [facility] Urine leukocyte esterase det ection by dipstickOrdered By: Mariano Chan on 05-10-2024 Leukocyte esterase Test strip Ql (U) 500 /ul High Negative [facility] Urine pHOrdered By: Mariano Chan on 05-10-2024 pH (U) 6.0 [pH] 5.0 - 8.0 [facility] Urine sediment bacteria coun t by microscopy (number/high power field)Ordered By: Mariano Chan on 05-10-2024 Bacteria LM.HPF (Urine sed) [#/Area] 2 /[HPF] None Seen [facility] Urine specific gravity measu rementOrdered By: Mariano Chan on 05-10-2024 Specific gravity (U) [Rel density] 1.015 1.002-1.030 [facility] Urine urobilinogen measureme ntOrdered By: Mariano Chan on 05-10-2024 Urobilinogen Ql (U) Normal mg/dl Normal [facility] Urobilinogen Ql (U)Ordered B y: Mariano Chan on 05-10-2024 Urine Urobilinogen Normal mg/dl Normal [facility] White blood cell countOrdere d By: Mariano Chan on 05-10-2024 Urine WBC 25-50 SEEN /hpf 0-5 [facility] White blood cell count 25-50 SEEN /hpf 0-5 [facility] Modified Barium Swallow Stud yon 05-09-2024 Modified Barium Swallow Study Normal [facility] Basic Metabolic Profile (BMP )on 05-04-2024 BUN/CRE 18.0 RATIO Normal 10-20 [facility] Comment on above: Performed By: #### L 500.2500 ####[facility] [address] [place], [address] Calcium [Mass/Vol] 8.2 mg/dL Normal 7.6-11.0 [facility] Comment on above: Performed By: #### L 500.2500 ####[facility] [address] [place], [address] Chloride [Moles/Vol] 111 mmol/L High 98-108 [facility] Comment on above: Performed By: #### L 500.2500 ####[facility] [address] [place], [address] CO2 [Moles/Vol] 21.7 mmol/L Normal 21.0-32.0 [facility] Comment on above: Performed By: #### L 500.2500 ####[facility] [address] [place], [address] Creatinine [Mass/Vol] 0.73 mg/dL Normal 0.70-1.20 [facility] Comment on above: Performed By: #### L 500.2500 ####[facility] [address] [place], [address] ECRCL 68.88 ml/min Normal 50-250 [facility] Comment on above: Performed By: #### L 500.2500 ####[facility] [address] [place], [address] GAP 8 Normal 5-15 [facility] Comment on above: Performed By: #### L 500.2500 ####[facility] [address] [place], [address] GFR/1.73 sq M.predicted among non-blacks MDRD (S/P/Bld) [Vol rate/Area] 91 mL/min/{1.73_m2} Normal >60 [facility] Comment on above: Result Comment: mL/m in/1.73m2 CKD-EPI Creatinine Equation (2020) Performed By: #### L 500.2500 ####[facility] [address] [place], [address] Glucose [Mass/Vol] 99 mg/dL Normal 70-99 [facility] Comment on above: Performed By: #### L 500.2500 ####[facility] [address] [place], [address] Potassium [Moles/Vol] 4.2 mmol/L Normal 3.3-5.1 [facility] Comment on above: Performed By: #### L 500.2500 ####[facility] [address] [place], [address] Sodium [Moles/Vol] 140 mmol/L Normal 133-145 [facility] Comment on above: Performed By: #### L 500.2500 ####[facility] [address] [place], [address] Urea nitrogen [Mass/Vol] 13 mg/dL Normal 4-19 [facility] Comment on above: Performed By: #### L 500.2500 ####[facility] [address] [place], [address] HH, Hemoglobin AND Hematocri ton 05-04-2024 Hematocrit (Bld) [Volume fraction] 37.1 % Low 40-54 [facility] Comment on above: Performed By: #### L 100.0600 ####[facility] [address] [place], [address] Hemoglobin (Bld) [Mass/Vol] 12.5 g/dL Low 13.0-16.5 [facility] Comment on above: Performed By: #### L 100.0600 ####[facility] [address] [place], [address] HH, Hemoglobin AND Hematocri ton 05-03-2024 Hematocrit (Bld) [Volume fraction] 38.8 % Low 40-54 [facility] Comment on above: Performed By: #### L 100.0600 ####[facility] [address] [place], [address] Hemoglobin (Bld) [Mass/Vol] 12.9 g/dL Low 13.0-16.5 [facility] Comment on above: Performed By: #### L 100.0600 ####[facility] [address] [place], [address] SP/SP.FEESon 05-02-2024 SP/SP.FEES Normal [facility] Basic Metabolic Profile (BMP )on 05-01-2024 BUN/CRE 21.7 RATIO High 10-20 [facility] Comment on above: Performed By: #### L 500.2500, L501.2300, L100.0500 ####[facility] [address] [place], [address] Calcium [Mass/Vol] 8.1 mg/dL Normal 7.6-11.0 [facility] Comment on above: Performed By: #### L 500.2500, L501.2300, L100.0500 ####[facility] [address] [place], [address] Chloride [Moles/Vol] 109 mmol/L High 98-108 [facility] Comment on above: Performed By: #### L 500.2500, L501.2300, L100.0500 ####[facility] [address] [place], [address] CO2 [Moles/Vol] 23.7 mmol/L Normal 21.0-32.0 [facility] Comment on above: Performed By: #### L 500.2500, L501.2300, L100.0500 ####[facility] [address] [place], [address] Creatinine [Mass/Vol] 0.74 mg/dL Normal 0.70-1.20 [facility] Comment on above: Performed By: #### L 500.2500, L501.2300, L100.0500 ####[facility] [address] [place], [address] ECRCL 68.88 ml/min Normal 50-250 [facility] Comment on above: Performed By: #### L 500.2500, L501.2300, L100.0500 ####[facility] [address] [place], [address] GAP 8 Normal 5-15 [facility] Comment on above: Performed By: #### L 500.2500, L501.2300, L100.0500 ####[facility] [address] [place], [address] GFR/1.73 sq M.predicted among non-blacks MDRD (S/P/Bld) [Vol rate/Area] 91 mL/min/{1.73_m2} Normal >60 [facility] Comment on above: Result Comment: mL/m in/1.73m2 CKD-EPI Creatinine Equation (2020) Performed By: #### L 500.2500, L501.2300, L100.0500 ####[facility] [address] [place], [address] Glucose [Mass/Vol] 99 mg/dL Normal 70-99 [facility] Comment on above: Performed By: #### L 500.2500, L501.2300, L100.0500 ####[facility] [address] [place], [address] Potassium [Moles/Vol] 4.5 mmol/L Normal 3.3-5.1 [facility] Comment on above: Performed By: #### L 500.2500, L501.2300, L100.0500 ####[facility] [address] [place], [address] Sodium [Moles/Vol] 141 mmol/L Normal 133-145 [facility] Comment on above: Performed By: #### L 500.2500, L501.2300, L100.0500 ####[facility] [address] [place], [address] Urea nitrogen [Mass/Vol] 16 mg/dL Normal 4-19 [facility] Comment on above: Performed By: #### L 500.2500, L501.2300, L100.0500 ####[facility] [address] [place], [address] CBC-Complete Blood Cnt No Di ffon 05-01-2024 Erythrocyte distribution width (RBC) [Ratio] 12.8 % Normal 11.6-14.6 [facility] Comment on above: Performed By: #### L 500.2500, L501.2300, L100.0500 ####[facility] [address] [place], [address] Hematocrit (Bld) [Volume fraction] 35.2 % Low 40-54 [facility] Comment on above: Performed By: #### L 500.2500, L501.2300, L100.0500 ####[facility] [address] [place], [address] Hemoglobin (Bld) [Mass/Vol] 11.9 g/dL Low 13.0-16.5 [facility] Comment on above: Performed By: #### L 500.2500, L501.2300, L100.0500 ####[facility] [address] [place], [address] MCH (RBC) [Entitic mass] 30.2 pg Normal 27.0-32.0 [facility] Comment on above: Performed By: #### L 500.2500, L501.2300, L100.0500 ####[facility] [address] [place], [address] MCHC (RBC) [Mass/Vol] 33.8 g/dL Normal 32-36 [facility] Comment on above: Performed By: #### L 500.2500, L501.2300, L100.0500 ####[facility] [address] [place], [address] MCV (RBC) [Entitic vol] 89.3 fL Normal 80-94 [facility] Comment on above: Performed By: #### L 500.2500, L501.2300, L100.0500 ####[facility] [address] [place], [address] Platelet mean volume (Bld) [Entitic vol] 8.6 fL Normal 6.2-12.0 [facility] Comment on above: Performed By: #### L 500.2500, L501.2300, L100.0500 ####[facility] [address] [place], [address] Platelets (Bld) [#/Vol] 149 10*3/uL Low 150-450 [facility] Comment on above: Performed By: #### L 500.2500, L501.2300, L100.0500 ####[facility] [address] [place], [address] RBC (Bld) [#/Vol] 3.94 10*6/uL Low 4.6-6.2 [facility] Comment on above: Performed By: #### L 500.2500, L501.2300, L100.0500 ####[facility] [address] [place], [address] RDW SD 41.9 fl Normal 35.1-43.9 [facility] Comment on above: Performed By: #### L 500.2500, L501.2300, L100.0500 ####[facility] [address] [place], [address] WBC (Bld) [#/Vol] 8.4 10*3/uL Normal 4.4-11.0 [facility] Comment on above: Performed By: #### L 500.2500, L501.2300, L100.0500 ####[facility] [address] [place], [address] Electrocardiogram reportOrde red By: David Granados on 05-01-2024 EKG study [facility] [address] [place] [address] 12 Lead EKG 04/30/24 1706 MR#: [id number] Acct: [id number] Name: YSA ROSA Rep #:[id number] : 1940 83 From: David Granados MD Attending Dr: Dr. Corazon Wright DO Status: ADM IN Ordering Dr: Corazon Wright DO Date: 04/30/24 Location: Sex: M C Admitted: 04/27/24 Test Reason [...] No significant change was found Confirmed by DAVID GRANADOS MD ([id number]), editor producer LEANDER BRAY ([id number]) on 59:48:33 AM Referred By: Corazon Wright Confirmed By: DAVID GRANADOS MD 05/01/24 0948 Date _ David Granados MD CC: Dr. Kwabena Menjivar MD; Dr. Corazon Wright, DO ~ Signed [facility] Work Phone: Phosphoruson 05-01-2024 Phosphate [Mass/Vol] 3.3 mg/dL Normal 2.7-4.5 [facility] Comment on above: Performed By: #### L 500.2500, L501.2300, L100.0500 ####[facility] [address] [place], [address] Serum phosphorus measurement Ordered By: Corazon Romogavin on 05-01-2024 Phosphorus Level 3.3 mg/dL 2.7-4.5 [facility] 12 Lead EKGon 04-30-2024 12 Lead EKG Normal [facility] CBC-Complete Blood Cnt No Di ffon 04-29-2024 HCT Normal 40-54 [facility] Comment on above: Result Comment: Daniel elled via OM: MD Ordered Performed By: #### L 100.0500 ####[facility] [address] [place], [address] HGB Normal 13.0-16.5 [facility] Comment on above: Result Comment: Daniel elled via OM: MD Ordered Performed By: #### L 100.0500 ####[facility] [address] [place], [address] MCH Normal 27.0-32.0 [facility] Comment on above: Result Comment: Daniel elled via OM: MD Ordered Performed By: #### L 100.0500 ####[facility] [address] [place], [address] MCHC Normal 32-36 [facility] Comment on above: Result Comment: Daniel elled via OM: MD Ordered Performed By: #### L 100.0500 ####[facility] [address] [place], [address] MCV Normal 80-94 [facility] Comment on above: Result Comment: Daniel elled via OM: MD Ordered Performed By: #### L 100.0500 ####[facility] [address] [place], [address] PLT Normal 150-450 [facility] Comment on above: Result Comment: Canc elled via OM: MD Ordered Performed By: #### L 100.0500 ####[facility] [address] [place], [address] RBC Normal 4.6-6.2 [facility] Comment on above: Result Comment: Canc elled via OM: MD Ordered Performed By: #### L 100.0500 ####[facility] [address] [place], [address] RDW CV Normal 11.6-14.6 [facility] Comment on above: Result Comment: Canc elled via OM: MD Ordered Performed By: #### L 100.0500 ####[facility] [address] [place], [address] RDW SD Normal 35.1-43.9 [facility] Comment on above: Result Comment: Canc elled via OM: MD Ordered Performed By: #### L 100.0500 ####[facility] [address] [place], [address] WBC Normal 4.4-11.0 [facility] Comment on above: Result Comment: Canc elled via OM: MD Ordered Performed By: #### L 100.0500 ####[facility] [address] [place], [address] L509.6001on 04-29-2024 CORTISOL 25.80 ug/dL High 6.02-18.40 [facility] Comment on above: Order Comment: Must be drawn 30-60 min AFTER cosyntropin admin. Performed By: #### L 509.6001 ####[facility] [address] [place], [address] CORTISOL 11.10 ug/dL Normal 6.02-18.40 [facility] Comment on above: Order Comment: must be performed shortly BEFORE cosyntropin admin Performed By: #### L 509.6001 ####[facility] [address] [place], [address] Lower GI hemoglobin IA Ql (S tl)Ordered By: Corazon Wright on 04-29-2024 Stool Occult Blood (JERMAINE) [facility] No Panel InformationOrdered By: Corazon Wright on 04-29-2024 Cortisol AM Sample 25.80 ug/dL High 6.02-18.40 [facility] 25.80 ug/dL High 6.02-18.40 [facility] Stool Occult Blood iFOBon STOB Negative Normal [facility] Comment on above: Performed By: #### M 100.7900 ####[facility] [address] [place], [address] Stool gastrointestinal hemog lobin detection by immunologic methodOrdered By: Corazon Wright on 04-29-2024 Lower GI hemoglobin IA Ql (Stl) [facility] Urine Cultureon 04-29-2024 URC Culture exhibits no growth. Normal [facility] Comment on above: Performed By: #### M 100.2200 ####[facility] [address] [place], [address] Basic Metabolic Profile (BMP )on 04-28-2024 BUN/CRE 30.3 RATIO High 10-20 [facility] Comment on above: Performed By: #### L 501.5200, L501.2300, L100.0500, L500.2500 ####[facility] [address] [place], [address] Calcium [Mass/Vol] 8.0 mg/dL Normal 7.6-11.0 [facility] Comment on above: Performed By: #### L 501.5200, L501.2300, L100.0500, L500.2500 ####[facility] [address] [place], [address] Chloride [Moles/Vol] 106 mmol/L Normal 98-108 [facility] Comment on above: Performed By: #### L 501.5200, L501.2300, L100.0500, L500.2500 ####[facility] [address] [place], [address] CO2 [Moles/Vol] 22.8 mmol/L Normal 21.0-32.0 [facility] Comment on above: Performed By: #### L 501.5200, L501.2300, L100.0500, L500.2500 ####[facility] [address] [place], [address] Creatinine [Mass/Vol] 0.89 mg/dL Normal 0.70-1.20 [facility] Comment on above: Performed By: #### L 501.5200, L501.2300, L100.0500, L500.2500 ####[facility] [address] [place], [address] ECRCL 61.91 ml/min Normal 50-250 [facility] Comment on above: Performed By: #### L 501.5200, L501.2300, L100.0500, L500.2500 ####[facility] [address] [place], [address] GAP 8 Normal 5-15 [facility] Comment on above: Performed By: #### L 501.5200, L501.2300, L100.0500, L500.2500 ####[facility] [address] [place], [address] GFR/1.73 sq M.predicted among non-blacks MDRD (S/P/Bld) [Vol rate/Area] 86 mL/min/{1.73_m2} Normal >60 [facility] Comment on above: Result Comment: mL/m in/1.73m2 CKD-EPI Creatinine Equation (2020) Performed By: #### L 501.5200, L501.2300, L100.0500, L500.2500 ####[facility] [address] [place], [address] Glucose [Mass/Vol] 91 mg/dL Normal 70-99 [facility] Comment on above: Performed By: #### L 501.5200, L501.2300, L100.0500, L500.2500 ####[facility] [address] [place], [address] Potassium [Moles/Vol] 4.6 mmol/L Normal 3.3-5.1 [facility] Comment on above: Performed By: #### L 501.5200, L501.2300, L100.0500, L500.2500 ####[facility] [address] [place], [address] Sodium [Moles/Vol] 137 mmol/L Normal 133-145 [facility] Comment on above: Performed By: #### L 501.5200, L501.2300, L100.0500, L500.2500 ####[facility] [address] [place], [address] Urea nitrogen [Mass/Vol] 27 mg/dL High - [facility] Comment on above: Performed By: #### L 501.5200, L501.2300, L100.0500, L500.2500 ####[facility] [address] [place], [address] BUN Normal - [facility] Comment on above: Result Comment: Canc elled via OM: Order cancelled - Patient discharged Performed By: #### L 500.2500 ####[facility] [address] [place], [address] BUN/CRE Normal - [facility] Comment on above: Result Comment: Canc elled via OM: Order cancelled - Patient discharged Performed By: #### L 500.2500 ####[facility] [address] [place], [address] Calcium Normal 7.6-11.0 [facility] Comment on above: Result Comment: Canc elled via OM: Order cancelled - Patient discharged Performed By: #### L 500.2500 ####[facility] [address] [place], [address] CL Normal 98-108 [facility] Comment on above: Result Comment: Canc elled via OM: Order cancelled - Patient discharged Performed By: #### L 500.2500 ####[facility] [address] [place], [address] CO2 Normal 21.0-32.0 [facility] Comment on above: Result Comment: Canc elled via OM: Order cancelled - Patient discharged Performed By: #### L 500.2500 ####[facility] [address] [place], [address] CREAT,SERUM Normal 0.70-1.20 [facility] Comment on above: Result Comment: Canc elled via OM: Order cancelled - Patient discharged Performed By: #### L 500.2500 ####[facility] [address] [place], [address] eGFR Normal >60 [facility] Comment on above: Result Comment: Canc elled via OM: Order cancelled - Patient discharged Performed By: #### L 500.2500 ####[facility] [address] [place], [address] GAP Normal 5-15 [facility] Comment on above: Result Comment: Canc elled via OM: Order cancelled - Patient discharged Performed By: #### L 500.2500 ####[facility] [address] [place], [address] GLU Normal 70-99 [facility] Comment on above: Result Comment: Canc elled via OM: Order cancelled - Patient discharged Performed By: #### L 500.2500 ####[facility] [address] [place], [address] Potassium Normal 3.3-5.1 [facility] Comment on above: Result Comment: Canc elled via OM: Order cancelled - Patient discharged Performed By: #### L 500.2500 ####[facility] [address] [place], [address] Basic Metabolic Profile (BMP) Normal 133-145 [facility] Comment on above: Result Comment: Canc elled via OM: Order cancelled - Patient discharged Performed By: #### L 500.2500 ####[facility] [address] [place], [address] Bilirubin directOrdered By: Corazon Kyle on 04-28-2024 Bilirubin.direct [Mass/Vol] 0.18 mg/dL 0.00-0.30 [facility] Bilirubin, totalOrdered By: Corazon Wright on 04-28-2024 Bilirubin [Mass/Vol] 0.37 mg/dL 0.00-1.30 [facility] CBC W/Diff, Automatedon - Absolute Neut Normal 2.0-7.7 [facility] Comment on above: Result Comment: Canc elled via OM: Order cancelled - Patient discharged Performed By: #### L 100.0100 ####[facility] [address] [place], [address] HCT Normal 40-54 [facility] Comment on above: Result Comment: Canc elled via OM: Order cancelled - Patient discharged Performed By: #### L 100.0100 ####[facility] [address] [place], [address] HGB Normal 13.0-16.5 [facility] Comment on above: Result Comment: Canc elled via OM: Order cancelled - Patient discharged Performed By: #### L 100.0100 ####[facility] [address] [place], [address] MCH Normal 27.0-32.0 [facility] Comment on above: Result Comment: Canc elled via OM: Order cancelled - Patient discharged Performed By: #### L 100.0100 ####[facility] [address] [place], [address] MCHC Normal 32-36 [facility] Comment on above: Result Comment: Canc elled via OM: Order cancelled - Patient discharged Performed By: #### L 100.0100 ####[facility] [address] [place], [address] MCV Normal 80-94 [facility] Comment on above: Result Comment: Canc elled via OM: Order cancelled - Patient discharged Performed By: #### L 100.0100 ####[facility] [address] [place], [address] NEUT% Normal 47-70 [facility] Comment on above: Result Comment: Canc elled via OM: Order cancelled - Patient discharged Performed By: #### L 100.0100 ####[facility] [address] [place], [address] PLT Normal 150-450 [facility] Comment on above: Result Comment: Canc elled via OM: Order cancelled - Patient discharged Performed By: #### L 100.0100 ####[facility] [address] [place], [address] RBC Normal 4.6-6.2 [facility] Comment on above: Result Comment: Canc elled via OM: Order cancelled - Patient discharged Performed By: #### L 100.0100 ####[facility] [address] [place], [address] RDW CV Normal 11.6-14.6 [facility] Comment on above: Result Comment: Canc elled via OM: Order cancelled - Patient discharged Performed By: #### L 100.0100 ####[facility] [address] [place], [address] RDW SD Normal 35.1-43.9 [facility] Comment on above: Result Comment: Canc elled via OM: Order cancelled - Patient discharged Performed By: #### L 100.0100 ####[facility] [address] [place], [address] WBC Normal 4.4-11.0 [facility] Comment on above: Result Comment: Canc elled via OM: Order cancelled - Patient discharged Performed By: #### L 100.0100 ####[facility] [address] [place], [address] CBC-Complete Blood Cnt No Di ffon 04-28-2024 Erythrocyte distribution width (RBC) [Ratio] 12.7 % Normal 11.6-14.6 [facility] Comment on above: Performed By: #### L 501.5200, L501.2300, L100.0500, L500.2500 ####[facility] [address] [place], [address] Hematocrit (Bld) [Volume fraction] 35.3 % Low 40-54 [facility] Comment on above: Performed By: #### L 501.5200, L501.2300, L100.0500, L500.2500 ####[facility] [address] [place], [address] Hemoglobin (Bld) [Mass/Vol] 12.4 g/dL Low 13.0-16.5 [facility] Comment on above: Performed By: #### L 501.5200, L501.2300, L100.0500, L500.2500 ####[facility] [address] [place], [address] MCH (RBC) [Entitic mass] 30.6 pg Normal 27.0-32.0 [facility] Comment on above: Performed By: #### L 501.5200, L501.2300, L100.0500, L500.2500 ####[facility] [address] [place], [address] MCHC (RBC) [Mass/Vol] 35.1 g/dL Normal 32-36 [facility] Comment on above: Performed By: #### L 501.5200, L501.2300, L100.0500, L500.2500 ####[facility] [address] [place], [address] MCV (RBC) [Entitic vol] 87.2 fL Normal 80-94 [facility] Comment on above: Performed By: #### L 501.5200, L501.2300, L100.0500, L500.2500 ####[facility] [address] [place], [address] Platelet mean volume (Bld) [Entitic vol] 8.8 fL Normal 6.2-12.0 [facility] Comment on above: Performed By: #### L 501.5200, L501.2300, L100.0500, L500.2500 ####[facility] [address] [place], [address] Platelets (Bld) [#/Vol] 164 10*3/uL Normal 150-450 [facility] Comment on above: Performed By: #### L 501.5200, L501.2300, L100.0500, L500.2500 ####[facility] [address] [place], [address] RBC (Bld) [#/Vol] 4.05 10*6/uL Low 4.6-6.2 [facility] Comment on above: Performed By: #### L 501.5200, L501.2300, L100.0500, L500.2500 ####[facility] [address] [place], [address] RDW SD 40.3 fl Normal 35.1-43.9 [facility] Comment on above: Performed By: #### L 501.5200, L501.2300, L100.0500, L500.2500 ####[facility] [address] [place], [address] WBC (Bld) [#/Vol] 11.3 10*3/uL High 4.4-11.0 [facility] Comment on above: Performed By: #### L 501.5200, L501.2300, L100.0500, L500.2500 ####[facility] [address] [place], [address] L509.6001on 04-28-2024 CORTISOL 3.92 ug/dL Low 6.02-18.40 [facility] Comment on above: Order Comment: Cecelia snyder use the blood drawn this AM Performed By: #### L 509.6001 ####[facility] [address] [place], [address] Laboratory - Chemistry and C hemistry - challengeOrdered By: Corazon Wright on 04-28-2024 AST [Catalytic activity/Vol] 25 U/L <38 [facility] Liver Profileon 04-28-2024 Albumin [Mass/Vol] 3.1 g/dL Low 3.4-4.8 [facility] Comment on above: Performed By: #### L 501.9520, L500.3400 ####[facility] [address] [place], [address] ALK PHOS 70 U/L Normal 40-129 [facility] Comment on above: Performed By: #### L 501.9520, L500.3400 ####[facility] [address] [place], [address] ALT [Catalytic activity/Vol] 44 U/L Normal <=46 [facility] Comment on above: Performed By: #### L 501.9520, L500.3400 ####[facility] [address] [place], [address] AST [Catalytic activity/Vol] 25 U/L Normal <=37 [facility] Comment on above: Performed By: #### L 501.9520, L500.3400 ####[facility] [address] [place], [address] Bilirubin [Mass/Vol] 0.37 mg/dL Normal 0.00-1.30 [facility] Comment on above: Performed By: #### L 501.9520, L500.3400 ####[facility] [address] [place], [address] Bilirubin.direct [Mass/Vol] 0.18 mg/dL Normal 0.00-0.30 [facility] Comment on above: Performed By: #### L 501.9520, L500.3400 ####[facility] [address] [place], [address] Globulin (S) [Mass/Vol] 2.0 g/dL Low 2.2-4.2 [facility] Comment on above: Performed By: #### L 501.9520, L500.3400 ####[facility] [address] [place], [address] T PROT 5.1 g/dL Low 5.9-8.4 [facility] Comment on above: Performed By: #### L 501.9520, L500.3400 ####[facility] [address] [place], [address] Magnesiumon 04-28-2024 Magnesium [Mass/Vol] 2.6 mg/dL High 1.5-2.2 [facility] Comment on above: Performed By: #### L 501.5200, L501.2300, L100.0500, L500.2500 ####[facility] [address] [place], [address] Magnesium (Unsp spec) [Mass/ Vol]Ordered By: Corazon Wright on 04-28-2024 Magnesium [Mass/Vol] 2.6 mg/dL High 1.5-2.2 [facility] Magnesium measurement (mass/ volume)Ordered By: Corazon Wright on 04-28-2024 Magnesium (Unsp spec) [Mass/Vol] 2.6 mg/dL High 1.5-2.2 [facility] No Panel InformationOrdered By: Corazon Wright on 04-28-2024 25 U/L <38 [facility] PSA, total screeningOrdered By: Corazon Wright on 04-28-2024 Prostate Specific Antigen Screen 0.33 ng/mL 0.02-4.00 [facility] Comment on above: This test was perfor [...] 04-28-2024 PSA,TOT SCREEN 0.33 ng/mL Normal 0.02-4.00 [facility] Comment on above: Result Comment: This test was performed using the [employer] tPSAmethod. Measured values of a patient??sample can varydepending on the testing procedure used. PSA valuesdetermined on patient samples by different testingprocedures cannot be used interchangeably. If there is achange in PSA assays while monitoring therapy, sequentialtesting should be performed to confirm baseline values. Performed By: #### L 501.9910 ####[facility] [address] [place], [address] Phosphoruson 04-28-2024 Phosphate [Mass/Vol] 2.4 mg/dL Low 2.7-4.5 [facility] Comment on above: Performed By: #### L 501.5200, L501.2300, L100.0500, L500.2500 ####[facility] [address] [place], [address] Serum globulin measurementOr dered By: Corazon Kyle on 04-28-2024 Globulin (S) [Mass/Vol] 2.0 g/dL Low 2.2-4.2 [facility] Serum or plasma alanine olmedo otransferase (ALT) measurementOrdered By: Corazon Romogavin on 04-28-2024 ALT [Catalytic activity/Vol] 44 U/L <47 [facility] Serum or plasma albumin ratna urement (mass/volume)Ordered By: Corazon Romogavin on 04-28-2024 Albumin [Mass/Vol] 3.1 g/dL Low 3.4-4.8 [facility] Serum or plasma alkaline garry sphatase measurementOrdered By: Corazon Romogavin on 04-28-2024 ALP [Catalytic activity/Vol] 70 U/L 40-129 [facility] TSH DL <= 0.005 mIU/L QnOrde red By: Corazon Romogavin on 04-28-2024 Thyroid Stimulating Hormone (TSH) 1.030 uIU/mL 0.300-4.200 [facility] TSH Qn 1.030 uIU/mL 0.300-4.200 [facility] Thyroid Stim Hormone (TSH)on 04-28-2024 TSH 1.030 uIU/mL Normal 0.300-4.200 [facility] Comment on above: Performed By: #### L 501.9520, L500.3400 ####[facility] [address] [facility] [place], [address] Total proteinOrdered By: Aura Wright on 04-28-2024 Protein [Mass/Vol] 5.1 g/dL Low 5.9-8.4 [facility] Urinalysis, Completeon 04-28 RBC 0 SEEN Normal 0-5 [facility] Comment on above: Order Comment: YOSVANY TER SPECIMEN Performed By: #### L 400.0001 ####[facility] [address] [facility] [place], [place], [address] Absolute lymphocyte countOrd ered By: Harish Baxter on 04-27-2024 Lymphocytes Auto (Unsp spec) [#/Vol] 1.59 10*3/uL 0.83-4.51 [facility] Absolute neutrophil countOrd ered By: Harish Baxter on 04-27-2024 Neutrophils (Bld) [#/Vol] 8.8 10*3/uL High 2.0-7.7 [facility] Anion gap in Serum or Plasma Ordered By: Harish Baxter on 04-27-2024 Anion gap [Moles/Vol] 12 mmol/L 5-15 [facility] Automated lymphocyte count a s percentage of total leukocytesOrdered By: Harish Baxter on 04-27-2024 Lymphocytes/100 WBC Auto (Unsp spec) 14.3 % Low 19-41 [facility] BUN/creatinine ratioOrdered By: Harish Baxter on 04-27-2024 Urea nitrogen/Creatinine [Mass ratio] 21.3 mg/mg High 10 [facility] Basic Metabolic Profile (BMP )on 04-27-2024 BUN/CRE 21.3 RATIO High 11-27 [facility] Comment on above: Performed By: #### L 500.2500 ####[facility] [address] [place], [address] Calcium [Mass/Vol] 8.2 mg/dL Normal 7.6-11.0 [facility] Comment on above: Performed By: #### L 500.2500 ####[facility] [address] [place], [address] Chloride [Moles/Vol] 103 mmol/L Normal 98-108 [facility] Comment on above: Performed By: #### L 500.2500 ####[facility] [address] [place], [address] CO2 [Moles/Vol] 20.1 mmol/L Low 21.0-32.0 [facility] Comment on above: Performed By: #### L 500.2500 ####[facility] [address] [place], [address] Creatinine [Mass/Vol] 0.91 mg/dL Normal 0.70-1.20 [facility] Comment on above: Performed By: #### L 500.2500 ####[facility] [address] [place], [address] ECRCL 60.55 ml/min Normal 50-250 [facility] Comment on above: Performed By: #### L 500.2500 ####[facility] [address] [place], [address] GAP 12 Normal 5-15 [facility] Comment on above: Performed By: #### L 500.2500 ####[facility] [address] [place], [address] GFR/1.73 sq M.predicted among non-blacks MDRD (S/P/Bld) [Vol rate/Area] 84 mL/min/{1.73_m2} Normal >60 [facility] Comment on above: Result Comment: mL/m in/1.73m2 CKD-EPI Creatinine Equation (2020) Performed By: #### L 500.2500 ####[facility] [address] [place], [address] Glucose [Mass/Vol] 123 mg/dL High 70-99 [facility] Comment on above: Performed By: #### L 500.2500 ####[facility] [address] [place], [address] Potassium [Moles/Vol] 4.6 mmol/L Normal 3.3-5.1 [facility] Comment on above: Performed By: #### L 500.2500 ####[facility] [address] [place], [address] Sodium [Moles/Vol] 136 mmol/L Normal 133-145 [facility] Comment on above: Performed By: #### L 500.2500 ####[facility] [address] [place], [address] Urea nitrogen [Mass/Vol] 19 mg/dL Normal 4-19 [facility] Comment on above: Performed By: #### L 500.2500 ####[facility] [address] [place], [address] BUN Normal 4-19 [facility] Comment on above: Result Comment: Canc elled via OM: MD Ordered Performed By: #### L 100.0500, L500.2500 ####[facility] [address] [place], [address] BUN/CRE Normal 10-20 [facility] Comment on above: Result Comment: Canc elled via OM: MD Ordered Performed By: #### L 100.0500, L500.2500 ####[facility] [address] [place], [address] Calcium Normal 7.6-11.0 [facility] Comment on above: Result Comment: Canc elled via OM: MD Ordered Performed By: #### L 100.0500, L500.2500 ####[facility] [address] [place], [address] CL Normal 98-108 [facility] Comment on above: Result Comment: Canc elled via OM: MD Ordered Performed By: #### L 100.0500, L500.2500 ####[facility] [address] [place], [address] CO2 Normal 21.0-32.0 [facility] Comment on above: Result Comment: Canc elled via OM: MD Ordered Performed By: #### L 100.0500, L500.2500 ####[facility] [address] [place], [address] CREAT,SERUM Normal 0.70-1.20 [facility] Comment on above: Result Comment: Canc elled via OM: MD Ordered Performed By: #### L 100.0500, L500.2500 ####[facility] [address] [place], [address] eGFR Normal >60 [facility] Comment on above: Result Comment: Canc elled via OM: MD Ordered Performed By: #### L 100.0500, L500.2500 ####[facility] [address] [place], [address] GAP Normal 5-15 [facility] Comment on above: Result Comment: Canc elled via OM: MD Ordered Performed By: #### L 100.0500, L500.2500 ####[facility] [address] [place], [address] GLU Normal 70-99 [facility] Comment on above: Result Comment: Canc elled via OM: MD Ordered Performed By: #### L 100.0500, L500.2500 ####[facility] [address] [place], [address] Potassium Normal 3.3-5.1 [facility] Comment on above: Result Comment: Canc elled via OM: MD Ordered Performed By: #### L 100.0500, L500.2500 ####[facility] [address] [place], [address] Basic Metabolic Profile (BMP) Normal 133-145 [facility] Comment on above: Result Comment: Canc elled via OM: MD Ordered Performed By: #### L 100.0500, L500.2500 ####[facility] [address] [place], [address] Basophil percentageOrdered B y: Harish Baxter on 04-27-2024 Basophils/100 WBC (Bld) 0.2 % 0-1 [facility] CBC W/Diff, Automatedon 2 Absolute Lymph 1.59 X10 3/uL Normal 0.83-4.51 [facility] Comment on above: Performed By: #### L 100.0100 ####[facility] [address] [place], [address] Absolute Neut 8.8 X10 3/uL High 2.0-7.7 [facility] Comment on above: Performed By: #### L 100.0100 ####[facility] [address] [place], [address] Basophils/100 WBC (Bld) 0.2 % Normal 0-1 [facility] Comment on above: Performed By: #### L 100.0100 ####[facility] [address] [place], [address] Eosinophils/100 WBC (Bld) 0.0 % Normal 0-5 [facility] Comment on above: Performed By: #### L 100.0100 ####[facility] [address] [place], [address] Erythrocyte distribution width (RBC) [Ratio] 12.3 % Normal 11.6-14.6 [facility] Comment on above: Performed By: #### L 100.0100 ####[facility] [address] [place], [address] Hematocrit (Bld) [Volume fraction] 37.9 % Low 40-54 [facility] Comment on above: Performed By: #### L 100.0100 ####[facility] [address] [place], [address] Hemoglobin (Bld) [Mass/Vol] 13.0 g/dL Normal 13.0-16.5 [facility] Comment on above: Performed By: #### L 100.0100 ####[facility] [address] [place], [address] IG% 0.900 Normal 0.0-0.9 [facility] Comment on above: Result Comment: IG% - Immature Granulocytes (promyelocytes, myelocytes andmetamyelocytes) > 1% indicates that a LEFT SHIFT is Present. Performed By: #### L 100.0100 ####[facility] [address] [place], [address] Lymphocytes/100 WBC (Bld) 14.3 % Low 19-41 [facility] Comment on above: Performed By: #### L 100.0100 ####[facility] [address] [place], [address] MCH (RBC) [Entitic mass] 30.0 pg Normal 27.0-32.0 [facility] Comment on above: Performed By: #### L 100.0100 ####[facility] [address] [place], [address] MCHC (RBC) [Mass/Vol] 34.3 g/dL Normal 32-36 [facility] Comment on above: Performed By: #### L 100.0100 ####[facility] [address] [place], [address] MCV (RBC) [Entitic vol] 87.5 fL Normal 80-94 [facility] Comment on above: Performed By: #### L 100.0100 ####[facility] [address] [place], [address] Monocytes/100 WBC (Bld) 5.8 % Normal 0-10 [facility] Comment on above: Performed By: #### L 100.0100 ####[facility] [address] [place], [address] Neutrophils/100 WBC (Bld) 78.8 % High 47-70 [facility] Comment on above: Performed By: #### L 100.0100 ####[facility] [address] [place], [address] Nucleated RBC (Bld) [#/Vol] 0 10*3/uL Normal 0-5 [facility] Comment on above: Performed By: #### L 100.0100 ####[facility] [address] [place], [address] Platelet mean volume (Bld) [Entitic vol] 8.6 fL Normal 6.2-12.0 [facility] Comment on above: Performed By: #### L 100.0100 ####[facility] [address] [place], [address] Platelets (Bld) [#/Vol] 178 10*3/uL Normal 150-450 [facility] Comment on above: Performed By: #### L 100.0100 ####[facility] [address] [place], [address] RBC (Bld) [#/Vol] 4.33 10*6/uL Low 4.6-6.2 [facility] Comment on above: Performed By: #### L 100.0100 ####[facility] [address] [place], [address] RDW SD 39.6 fl Normal 35.1-43.9 [facility] Comment on above: Performed By: #### L 100.0100 ####[facility] [address] [place], [address] WBC (Bld) [#/Vol] 11.1 10*3/uL High 4.4-11.0 [facility] Comment on above: Performed By: #### L 100.0100 ####[facility] [address] [place], [address] CBC-Complete Blood Cnt No Di ffon 04-27-2024 HCT Normal 40-54 [facility] Comment on above: Result Comment: Daniel elled via OM: MD Ordered Performed By: #### L 100.0500, L500.2500 ####[facility] [address] [place], [address] HGB Normal 13.0-16.5 [facility] Comment on above: Result Comment: Daniel elled via OM: MD Ordered Performed By: #### L 100.0500, L500.2500 ####[facility] [address] [place], [address] MCH Normal 27.0-32.0 [facility] Comment on above: Result Comment: Canc elled via OM: MD Ordered Performed By: #### L 100.0500, L500.2500 ####[facility] [address] [place], [address] MCHC Normal 32-36 [facility] Comment on above: Result Comment: Canc elled via OM: MD Ordered Performed By: #### L 100.0500, L500.2500 ####[facility] [address] [place], [address] MCV Normal 80-94 [facility] Comment on above: Result Comment: Canc elled via OM: MD Ordered Performed By: #### L 100.0500, L500.2500 ####[facility] [address] [place], [address] PLT Normal 150-450 [facility] Comment on above: Result Comment: Canc elled via OM: MD Ordered Performed By: #### L 100.0500, L500.2500 ####[facility] [address] [place], [address] RBC Normal 4.6-6.2 [facility] Comment on above: Result Comment: Canc elled via OM: MD Ordered Performed By: #### L 100.0500, L500.2500 ####[facility] [address] [place], [address] RDW CV Normal 11.6-14.6 [facility] Comment on above: Result Comment: Canc elled via OM: MD Ordered Performed By: #### L 100.0500, L500.2500 ####[facility] [address] [place], [address] RDW SD Normal 35.1-43.9 [facility] Comment on above: Result Comment: Canc elled via OM: MD Ordered Performed By: #### L 100.0500, L500.2500 ####[facility] [address] [place], [address] WBC Normal 4.4-11.0 [facility] Comment on above: Result Comment: Canbryce hamm via OM: MD Ordered Performed By: #### L 100.0500, L500.2500 ####[facility] [address] [place], [address] Carbon dioxide, total [Moles /volume] in Central venous bloodOrdered By: Harish Baxter on 04-27-2024 CO2 [Moles/Vol] 20.1 mmol/L Low 21.0-32.0 [facility] Cerv Spine 2 or 3 Viewson Cerv Spine 2 or 3 Views Normal [facility] Chloride assayOrdered By: Carmela Batxer on 04-27-2024 Chloride [Moles/Vol] 103 mmol/L 98-108 [facility] Discharge Instructionon 04-09 Discharge Instruction Normal [facility] Eosinophil percentageOrdered By: Harish Baxter on 04-27-2024 Eosinophils/100 WBC (Bld) 0.0 % 0-5 [facility] Erythrocyte distribution wid th ratioOrdered By: Harish Baxter on 04-27-2024 Erythrocyte distribution width (RBC) [Ratio] 12.3 % 11.6-14.6 [facility] Erythrocyte distribution wid th standard deviationOrdered By: Harish Baxter on 04-27-2024 Erythrocyte distribution width (RBC) [Entitic vol] 39.6 fL 35.1-43.9 [facility] Erythrocyte distribution width (RBC) [Ratio] 39.6 fl 35.1-43.9 [facility] Estimation of creatinine yahir aranceOrdered By: Harish Baxter on 04-27-2024 Estimated Creatinine Clearance Calc 60.55 ml/min 50-250 [facility] GFR/1.73 sq M.predicted darrick g non-blacks MDRD (S/P/Bld) [Vol rate/Area]Ordered By: Harish Baxter on 04-27-2024 Estimated GFR (MDRD) Non-Af Amer 84 >60 [facility] Comment on above: mL/min/1.73m2 CKD-EP I Creatinine Equation (2020) Glomerular filtration rate ( GFR) estimation/1.73 sq m using serum, plasma, or whole bOrdered By: Harish Baxter on 04-27-2024 GFR/1.73 sq M.predicted among non-blacks MDRD (S/P/Bld) [Vol rate/Area] 84 mL/min/{1.73_m2} >60 [facility] Hematocrit Auto (Bld) [Volum e fraction]Ordered By: Harish Baxter on 04-27-2024 Hematocrit (Bld) [Volume fraction] 37.9 % Low 40-54 [facility] Hemoglobin measurementOrdere d By: Harish Baxter on 04-27-2024 Hemoglobin (Bld) [Mass/Vol] 13.0 g/dL 13.0-16.5 [facility] Immature granulocytes/100 WB C Auto (Bld)Ordered By: Harish Baxter on 04-27-2024 Immature granulocytes/100 WBC (Bld) 0.900 % 0.0-0.9 [facility] Comment on above: IG% - Immature Granu locytes (promyelocytes, myelocytes and metamyelocytes) > 1% indicates that a LEFT SHIFT is Present. Lymphocytes Auto (Unsp spec) [#/Vol]Ordered By: Harish Baxter on 04-27-2024 Lymphocytes (Bld) [#/Vol] 1.59 10*3/uL 0.83-4.51 [facility] Lymphocytes/100 WBC Auto (Un sp spec)Ordered By: Harish Baxter on 04-27-2024 Lymphocytes/100 WBC (Bld) 14.3 % Low 19-41 [facility] MCV (mean corpuscular volume ) determinationOrdered By: Harish Baxter on 04-27-2024 MCV (RBC) [Entitic vol] 87.5 fL 80-94 [facility] Mean corpuscular hemoglobin (MCH) determinationOrdered By: Harish Baxter on 04-27-2024 MCH (RBC) [Entitic mass] 30.0 pg 27.0-32.0 [facility] Mean corpuscular hemoglobin concentration (MCHC) determinationOrdered By: Harish Baxter on 04-27-2024 MCHC (RBC) [Mass/Vol] 34.3 g/dL 32-36 [facility] Mean platelet volume determi nationOrdered By: Harish Baxter on 04-27-2024 Platelet mean volume (Bld) [Entitic vol] 8.6 fL 6.2-12.0 [facility] Monocyte percentageOrdered B y: Harish Baxter on 04-27-2024 Monocytes/100 WBC (Bld) 5.8 % 0-10 [facility] Neutrophil percentageOrdered By: Harish Baxter on 04-27-2024 Neutrophils/100 WBC (Bld) 78.8 % High 47-70 [facility] Nucleated red blood cell per centageOrdered By: Harish Baxter on 04-27-2024 Nucleated RBC/100 WBC (Bld) [Ratio] 0 % 0-5 [facility] Platelet countOrdered By: Carmela Baxter on 04-27-2024 Platelets (Bld) [#/Vol] 178 10*3/uL 150-450 [facility] Potassium (Unsp spec) [Mass/ Vol]Ordered By: Harish Baxter on 04-27-2024 Potassium [Moles/Vol] 4.6 mmol/L 3.3-5.1 [facility] Potassium measurement (mass/ volume)Ordered By: Harish Baxter on 04-27-2024 Potassium (Unsp spec) [Mass/Vol] 4.6 mmol/L 3.3-5.1 [facility] RBC Auto (Bld) [#/Vol]Ordere d By: Harish Baxter on 04-27-2024 RBC (Bld) [#/Vol] 4.33 10*6/uL Low 4.6-6.2 [facility] Serum creatinine measurement (mass/volume)Ordered By: Harish Baxter on 04-27-2024 Creatinine [Mass/Vol] 0.91 mg/dL 0.70-1.20 [facility] Serum glucose measurement (m ass/volume)Ordered By: Harish Baxter on 04-27-2024 Glucose [Mass/Vol] 123 mg/dL High 70-99 [facility] Serum or plasma calcium ratna urement (mass/volume)Ordered By: Harish Baxter on 04-27-2024 Calcium [Mass/Vol] 8.2 mg/dL 7.6-11.0 [facility] Serum or plasma urea nitroge n measurement (mass/volume)Ordered By: Harish Baxter on 04-27-2024 Urea nitrogen [Mass/Vol] 19 mg/dL 4- [facility] Sodium levelOrdered By: Jade Baxter on 04-27-2024 Sodium [Moles/Vol] 136 mmol/L 133-145 [facility] Urine cultureOrdered By: Aura Wright on 04-27-2024 Bacteria identified Cx Nom (U) Culture exhibits no growth. [facility] White blood cell (WBC) count Ordered By: Harish Baxter on 04-27-2024 WBC (Bld) [#/Vol] 11.1 10*3/uL High 4.4-11.0 [facility] Basic Metabolic Profile (BMP )on 04-26-2024 BUN/CRE 23.4 RATIO High 10- [facility] Comment on above: Performed By: #### L 500.2500, L100.0100 ####[facility] [address] [place], [address] Calcium [Mass/Vol] 8.2 mg/dL Normal 7.6-11.0 [facility] Comment on above: Performed By: #### L 500.2500, L100.0100 ####[facility] [address] [place], [address] Chloride [Moles/Vol] 107 mmol/L Normal 98-108 [facility] Comment on above: Performed By: #### L 500.2500, L100.0100 ####[facility] [address] [place], [address] CO2 [Moles/Vol] 22.8 mmol/L Normal 21.0-32.0 [facility] Comment on above: Performed By: #### L 500.2500, L100.0100 ####[facility] [address] [place], [address] Creatinine [Mass/Vol] 0.83 mg/dL Normal 0.70-1.20 [facility] Comment on above: Performed By: #### L 500.2500, L100.0100 ####[facility] [address] [place], [address] ECRCL 66.39 ml/min Normal 50-250 [facility] Comment on above: Performed By: #### L 500.2500, L100.0100 ####[facility] [address] [place], [address] GAP 6 Normal 5-15 [facility] Comment on above: Performed By: #### L 500.2500, L100.0100 ####[facility] [address] [place], [address] GFR/1.73 sq M.predicted among non-blacks MDRD (S/P/Bld) [Vol rate/Area] 87 mL/min/{1.73_m2} Normal >60 [facility] Comment on above: Result Comment: mL/m in/1.73m2 CKD-EPI Creatinine Equation (2020) Performed By: #### L 500.2500, L100.0100 ####[facility] [address] [place], [address] Glucose [Mass/Vol] 91 mg/dL Normal 70-99 [facility] Comment on above: Performed By: #### L 500.2500, L100.0100 ####[facility] [address] [place], [address] Potassium [Moles/Vol] 4.5 mmol/L Normal 3.3-5.1 [facility] Comment on above: Performed By: #### L 500.2500, L100.0100 ####[facility] [address] [place], [address] Sodium [Moles/Vol] 136 mmol/L Normal 133-145 [facility] Comment on above: Performed By: #### L 500.2500, L100.0100 ####[facility] [address] [place], [address] Urea nitrogen [Mass/Vol] 20 mg/dL High 4-19 [facility] Comment on above: Performed By: #### L 500.2500, L100.0100 ####[facility] [address] [place], [address] CBC W/Diff, Automatedon 04-08 Absolute Lymph 2.30 X10 3/uL Normal 0.83-4.51 [facility] Comment on above: Performed By: #### L 500.2500, L100.0100 ####[facility] [address] [place], [address] Absolute Neut 5.4 X10 3/uL Normal 2.0-7.7 [facility] Comment on above: Performed By: #### L 500.2500, L100.0100 ####[facility] [address] [place], [address] Basophils/100 WBC (Bld) 0.1 % Normal 0-1 [facility] Comment on above: Performed By: #### L 500.2500, L100.0100 ####[facility] [address] [place], [address] Eosinophils/100 WBC (Bld) 2.2 % Normal 0-5 [facility] Comment on above: Performed By: #### L 500.2500, L100.0100 ####[facility] [address] [place], [address] Erythrocyte distribution width (RBC) [Ratio] 12.5 % Normal 11.6-14.6 [facility] Comment on above: Performed By: #### L 500.2500, L100.0100 ####[facility] [address] [place], [address] Hematocrit (Bld) [Volume fraction] 38.8 % Low 40-54 [facility] Comment on above: Performed By: #### L 500.2500, L100.0100 ####[facility] [address] [place], [address] Hemoglobin (Bld) [Mass/Vol] 13.3 g/dL Normal 13.0-16.5 [facility] Comment on above: Performed By: #### L 500.2500, L100.0100 ####[facility] [address] [place], [address] IG% 0.700 Normal 0.0-0.9 [facility] Comment on above: Result Comment: IG% - Immature Granulocytes (promyelocytes, myelocytes andmetamyelocytes) > 1% indicates that a LEFT SHIFT is Present. Performed By: #### L 500.2500, L100.0100 ####[facility] [address] [place], [address] Lymphocytes/100 WBC (Bld) 26.4 % Normal 19-41 [facility] Comment on above: Performed By: #### L 500.2500, L100.0100 ####[facility] [address] [place], [address] MCH (RBC) [Entitic mass] 29.8 pg Normal 27.0-32.0 [facility] Comment on above: Performed By: #### L 500.2500, L100.0100 ####[facility] [address] [place], [address] MCHC (RBC) [Mass/Vol] 34.3 g/dL Normal 32-36 [facility] Comment on above: Performed By: #### L 500.2500, L100.0100 ####[facility] [address] [place], [address] MCV (RBC) [Entitic vol] 87.0 fL Normal 80-94 [facility] Comment on above: Performed By: #### L 500.2500, L100.0100 ####[facility] [address] [place], [address] Monocytes/100 WBC (Bld) 8.2 % Normal 0-10 [facility] Comment on above: Performed By: #### L 500.2500, L100.0100 ####[facility] [address] [place], [address] Neutrophils/100 WBC (Bld) 62.4 % Normal 47-70 [facility] Comment on above: Performed By: #### L 500.2500, L100.0100 ####[facility] [address] [place], [address] Nucleated RBC (Bld) [#/Vol] 0 10*3/uL Normal 0-5 [facility] Comment on above: Performed By: #### L 500.2500, L100.0100 ####[facility] [address] [place], [address] Platelet mean volume (Bld) [Entitic vol] 8.5 fL Normal 6.2-12.0 [facility] Comment on above: Performed By: #### L 500.2500, L100.0100 ####[facility] [address] [place], [address] Platelets (Bld) [#/Vol] 168 10*3/uL Normal 150-450 [facility] Comment on above: Performed By: #### L 500.2500, L100.0100 ####[facility] [address] [place], [address] RBC (Bld) [#/Vol] 4.46 10*6/uL Low 4.6-6.2 [facility] Comment on above: Performed By: #### L 500.2500, L100.0100 ####[facility] [address] [place], [address] RDW SD 39.8 fl Normal 35.1-43.9 [facility] Comment on above: Performed By: #### L 500.2500, L100.0100 ####[facility] [address] [place], [address] WBC (Bld) [#/Vol] 8.7 10*3/uL Normal 4.4-11.0 [facility] Comment on above: Performed By: #### L 500.2500, L100.0100 ####[facility] [address] [place], [address] Cerv Spine 2 or 3 Viewson Cerv Spine 2 or 3 Views Normal [facility] HH, Hemoglobin AND Hematocri ton 04-26-2024 Hematocrit (Bld) [Volume fraction] 37.7 % Low 40-54 [facility] Comment on above: Performed By: #### L 100.0600 ####[facility] [address] [place], [address] Hemoglobin (Bld) [Mass/Vol] 12.8 g/dL Low 13.0-16.5 [facility] Comment on above: Performed By: #### L 100.0600 ####[facility] [address] [place], [address] MR/POSTOP.ANEon 04-26-2024 MR/POSTOP.ANE Normal [facility] MR/POSTOP.ANE Normal [facility] MR/[id number] 04-26-2024 MR/POSTOPAN2 Normal [facility] O.R. Fluoro for C-Cr 04-08 O.R. Fluoro for C-Arm Normal [facility] Operative Reporton Operative Report Normal [facility] Basic Metabolic Profile (BMP )on 04-25-2024 BUN/CRE 26.7 RATIO High 10-20 [facility] Comment on above: Performed By: #### L 500.2500, L100.0100 ####[facility] [address] [place], [address] Calcium [Mass/Vol] 8.5 mg/dL Normal 7.6-11.0 [facility] Comment on above: Performed By: #### L 500.2500, L100.0100 ####[facility] [address] [place], [address] Chloride [Moles/Vol] 103 mmol/L Normal 98-108 [facility] Comment on above: Performed By: #### L 500.2500, L100.0100 ####[facility] [address] [place], [address] CO2 [Moles/Vol] 24.3 mmol/L Normal 21.0-32.0 [facility] Comment on above: Performed By: #### L 500.2500, L100.0100 ####[facility] [address] [place], [address] Creatinine [Mass/Vol] 0.90 mg/dL Normal 0.70-1.20 [facility] Comment on above: Performed By: #### L 500.2500, L100.0100 ####[facility] [address] [place], [address] ECRCL 61.22 ml/min Normal 50-250 [facility] Comment on above: Performed By: #### L 500.2500, L100.0100 ####[facility] [address] [place], [address] GAP 10 Normal 5-15 [facility] Comment on above: Performed By: #### L 500.2500, L100.0100 ####[facility] [address] [place], [address] GFR/1.73 sq M.predicted among non-blacks MDRD (S/P/Bld) [Vol rate/Area] 85 mL/min/{1.73_m2} Normal >60 [facility] Comment on above: Result Comment: mL/m in/1.73m2 CKD-EPI Creatinine Equation (2020) Performed By: #### L 500.2500, L100.0100 ####[facility] [address] [place], [address] Glucose [Mass/Vol] 90 mg/dL Normal 70-99 [facility] Comment on above: Performed By: #### L 500.2500, L100.0100 ####[facility] [address] [place], [address] Potassium [Moles/Vol] 4.2 mmol/L Normal 3.3-5.1 [facility] Comment on above: Performed By: #### L 500.2500, L100.0100 ####[facility] [address] [place], [address] Sodium [Moles/Vol] 138 mmol/L Normal 133-145 [facility] Comment on above: Performed By: #### L 500.2500, L100.0100 ####[facility] [address] [place], [address] Urea nitrogen [Mass/Vol] 24 mg/dL High 4-19 [facility] Comment on above: Performed By: #### L 500.2500, L100.0100 ####[facility] [address] [place], [address] CBC W/Diff, Automatedon 04-08 Absolute Lymph 2.98 X10 3/uL Normal 0.83-4.51 [facility] Comment on above: Performed By: #### L 500.2500, L100.0100 ####[facility] [address] [place], [address] Absolute Neut 6.0 X10 3/uL Normal 2.0-7.7 [facility] Comment on above: Performed By: #### L 500.2500, L100.0100 ####[facility] [address] [place], [address] Basophils/100 WBC (Bld) 0.1 % Normal 0-1 [facility] Comment on above: Performed By: #### L 500.2500, L100.0100 ####[facility] [address] [place], [address] Eosinophils/100 WBC (Bld) 1.3 % Normal 0-5 [facility] Comment on above: Performed By: #### L 500.2500, L100.0100 ####[facility] [address] [place], [address] Erythrocyte distribution width (RBC) [Ratio] 12.5 % Normal 11.6-14.6 [facility] Comment on above: Performed By: #### L 500.2500, L100.0100 ####[facility] [address] [place], [address] Hematocrit (Bld) [Volume fraction] 38.8 % Low 40-54 [facility] Comment on above: Performed By: #### L 500.2500, L100.0100 ####[facility] [address] [place], [address] Hemoglobin (Bld) [Mass/Vol] 13.5 g/dL Normal 13.0-16.5 [facility] Comment on above: Performed By: #### L 500.2500, L100.0100 ####[facility] [address] [place], [address] IG% 0.700 Normal 0.0-0.9 [facility] Comment on above: Result Comment: IG% - Immature Granulocytes (promyelocytes, myelocytes andmetamyelocytes) > 1% indicates that a LEFT SHIFT is Present. Performed By: #### L 500.2500, L100.0100 ####[facility] [address] [place], [address] Lymphocytes/100 WBC (Bld) 30.0 % Normal 19-41 [facility] Comment on above: Performed By: #### L 500.2500, L100.0100 ####[facility] [address] [place], [address] MCH (RBC) [Entitic mass] 29.9 pg Normal 27.0-32.0 [facility] Comment on above: Performed By: #### L 500.2500, L100.0100 ####[facility] [address] [place], [address] MCHC (RBC) [Mass/Vol] 34.8 g/dL Normal 32-36 [facility] Comment on above: Performed By: #### L 500.2500, L100.0100 ####[facility] [address] [place], [address] MCV (RBC) [Entitic vol] 86.0 fL Normal 80-94 [facility] Comment on above: Performed By: #### L 500.2500, L100.0100 ####[facility] [address] [place], [address] Monocytes/100 WBC (Bld) 7.5 % Normal 0-10 [facility] Comment on above: Performed By: #### L 500.2500, L100.0100 ####[facility] [address] [place], [address] Neutrophils/100 WBC (Bld) 60.4 % Normal 47-70 [facility] Comment on above: Performed By: #### L 500.2500, L100.0100 ####[facility] [address] [place], [address] Nucleated RBC (Bld) [#/Vol] 0 10*3/uL Normal 0-5 [facility] Comment on above: Performed By: #### L 500.2500, L100.0100 ####[facility] [address] [place], [address] Platelet mean volume (Bld) [Entitic vol] 8.5 fL Normal 6.2-12.0 [facility] Comment on above: Performed By: #### L 500.2500, L100.0100 ####[facility] [address] [place], [address] Platelets (Bld) [#/Vol] 186 10*3/uL Normal 150-450 [facility] Comment on above: Performed By: #### L 500.2500, L100.0100 ####[facility] [address] [place], [address] RBC (Bld) [#/Vol] 4.51 10*6/uL Low 4.6-6.2 [facility] Comment on above: Performed By: #### L 500.2500, L100.0100 ####[facility] [address] [place], [address] RDW SD 39.1 fl Normal 35.1-43.9 [facility] Comment on above: Performed By: #### L 500.2500, L100.0100 ####[facility] [address] [place], [address] WBC (Bld) [#/Vol] 9.9 10*3/uL Normal 4.4-11.0 [facility] Comment on above: Performed By: #### L 500.2500, L100.0100 ####[facility] [address] [place], [address] 12 Lead EKGon 04-24-2024 12 Lead EKG Normal [facility] Basic Metabolic Profile (BMP )on 04-24-2024 BUN/CRE 25.3 RATIO High 10-20 [facility] Comment on above: Order Comment: pre-o p Performed By: #### L 500.2500, L100.0100 ####[facility] [address] [place], [address] Calcium [Mass/Vol] 8.7 mg/dL Normal 7.6-11.0 [facility] Comment on above: Order Comment: pre-o p Performed By: #### L 500.2500, L100.0100 ####[facility] [address] [place], [address] Chloride [Moles/Vol] 103 mmol/L Normal 98-108 [facility] Comment on above: Order Comment: pre-o p Performed By: #### L 500.2500, L100.0100 ####[facility] [address] [place], [address] CO2 [Moles/Vol] 26.7 mmol/L Normal 21.0-32.0 [facility] Comment on above: Order Comment: pre-o p Performed By: #### L 500.2500, L100.0100 ####[facility] [address] [place], [address] Creatinine [Mass/Vol] 0.97 mg/dL Normal 0.70-1.20 [facility] Comment on above: Order Comment: pre-o p Performed By: #### L 500.2500, L100.0100 ####[facility] [address] [place], [address] ECRCL 56.80 ml/min Normal 50-250 [facility] Comment on above: Order Comment: pre-o p Performed By: #### L 500.2500, L100.0100 ####[facility] [address] [place], [address] GAP 8 Normal 5-15 [facility] Comment on above: Order Comment: pre-o p Performed By: #### L 500.2500, L100.0100 ####[facility] [address] [place], [address] GFR/1.73 sq M.predicted among non-blacks MDRD (S/P/Bld) [Vol rate/Area] 78 mL/min/{1.73_m2} Normal >60 [facility] Comment on above: Order Comment: pre-o p Result Comment: mL/m in/1.73m2 CKD-EPI Creatinine Equation (2020) Performed By: #### L 500.2500, L100.0100 ####[facility] [address] [place], [address] Glucose [Mass/Vol] 94 mg/dL Normal 70-99 [facility] Comment on above: Order Comment: pre-o p Performed By: #### L 500.2500, L100.0100 ####[facility] [address] [place], [address] Potassium [Moles/Vol] 4.2 mmol/L Normal 3.3-5.1 [facility] Comment on above: Order Comment: pre-o p Performed By: #### L 500.2500, L100.0100 ####[facility] [address] [place], [address] Sodium [Moles/Vol] 138 mmol/L Normal 133-145 [facility] Comment on above: Order Comment: pre-o p Performed By: #### L 500.2500, L100.0100 ####[facility] [address] [place], [address] Urea nitrogen [Mass/Vol] 25 mg/dL High 4-19 [facility] Comment on above: Order Comment: pre-o p Performed By: #### L 500.2500, L100.0100 ####[facility] [address] [place], [address] CBC W/Diff, Automatedon 04-08 Absolute Lymph 3.18 X10 3/uL Normal 0.83-4.51 [facility] Comment on above: Order Comment: Comme nts: pre-op Performed By: #### L 500.2500, L100.0100 ####[facility] [address] [place], [address] Absolute Neut 6.3 X10 3/uL Normal 2.0-7.7 [facility] Comment on above: Order Comment: Comme nts: pre-op Performed By: #### L 500.2500, L100.0100 ####[facility] [address] [place], [address] Basophils/100 WBC (Bld) 0.1 % Normal 0-1 [facility] Comment on above: Order Comment: Comme nts: pre-op Performed By: #### L 500.2500, L100.0100 ####[facility] [address] [place], [address] Eosinophils/100 WBC (Bld) 0.7 % Normal 0-5 [facility] Comment on above: Order Comment: Comme nts: pre-op Performed By: #### L 500.2500, L100.0100 ####[facility] [address] [place], [address] Erythrocyte distribution width (RBC) [Ratio] 12.3 % Normal 11.6-14.6 [facility] Comment on above: Order Comment: Comme nts: pre-op Performed By: #### L 500.2500, L100.0100 ####[facility] [address] [place], [address] Hematocrit (Bld) [Volume fraction] 39.7 % Low 40-54 [facility] Comment on above: Order Comment: Comme nts: pre-op Performed By: #### L 500.2500, L100.0100 ####[facility] [address] [place], [address] Hemoglobin (Bld) [Mass/Vol] 13.6 g/dL Normal 13.0-16.5 [facility] Comment on above: Order Comment: Comme nts: pre-op Performed By: #### L 500.2500, L100.0100 ####[facility] [address] [place], [address] IG% 0.500 Normal 0.0-0.9 [facility] Comment on above: Order Comment: Comme nts: pre-op Result Comment: IG% - Immature Granulocytes (promyelocytes, myelocytes andmetamyelocytes) > 1% indicates that a LEFT SHIFT is Present. Performed By: #### L 500.2500, L100.0100 ####[facility] [address] [place], [address] Lymphocytes/100 WBC (Bld) 30.5 % Normal 19-41 [facility] Comment on above: Order Comment: Comme nts: pre-op Performed By: #### L 500.2500, L100.0100 ####[facility] [address] [place], [address] MCH (RBC) [Entitic mass] 29.8 pg Normal 27.0-32.0 [facility] Comment on above: Order Comment: Comme nts: pre-op Performed By: #### L 500.2500, L100.0100 ####[facility] [address] [place], [address] MCHC (RBC) [Mass/Vol] 34.3 g/dL Normal 32-36 [facility] Comment on above: Order Comment: Comme nts: pre-op Performed By: #### L 500.2500, L100.0100 ####[facility] [address] [place], [address] MCV (RBC) [Entitic vol] 87.1 fL Normal 80-94 [facility] Comment on above: Order Comment: Comme nts: pre-op Performed By: #### L 500.2500, L100.0100 ####[facility] [address] [place], [address] Monocytes/100 WBC (Bld) 7.9 % Normal 0-10 [facility] Comment on above: Order Comment: Comme nts: pre-op Performed By: #### L 500.2500, L100.0100 ####[facility] [address] [place], [address] Neutrophils/100 WBC (Bld) 60.3 % Normal 47-70 [facility] Comment on above: Order Comment: Comme nts: pre-op Performed By: #### L 500.2500, L100.0100 ####[facility] [address] [place], [address] Nucleated RBC (Bld) [#/Vol] 0 10*3/uL Normal 0-5 [facility] Comment on above: Order Comment: Comme nts: pre-op Performed By: #### L 500.2500, L100.0100 ####[facility] [address] [place], [address] Platelet mean volume (Bld) [Entitic vol] 8.5 fL Normal 6.2-12.0 [facility] Comment on above: Order Comment: Comme nts: pre-op Performed By: #### L 500.2500, L100.0100 ####[facility] [address] [place], [address] Platelets (Bld) [#/Vol] 199 10*3/uL Normal 150-450 [facility] Comment on above: Order Comment: Comme nts: pre-op Performed By: #### L 500.2500, L100.0100 ####[facility] [address] [place], [address] RBC (Bld) [#/Vol] 4.56 10*6/uL Low 4.6-6.2 [facility] Comment on above: Order Comment: Comme nts: pre-op Performed By: #### L 500.2500, L100.0100 ####[facility] [address] [place], [address] RDW SD 39.4 fl Normal 35.1-43.9 [facility] Comment on above: Order Comment: Comme nts: pre-op Performed By: #### L 500.2500, L100.0100 ####[facility] [address] [place], [address] WBC (Bld) [#/Vol] 10.4 10*3/uL Normal 4.4-11.0 [facility] Comment on above: Order Comment: Comme nts: pre-op Performed By: #### L 500.2500, L100.0100 ####[facility] [address] [place], [address] Electrocardiogram reportOrde red By: Danette Sargent on 04-24-2024 EKG study [facility] Cardiovascular Services [address] [place] [address] 12 Lead EKG 04/19/24 1131 MR#: [id number] Acct: [id number] Name: YAS ROSA Rep #:[id number] : 1940 83 From: Danette cartagena MD Attending Dr: Dr. Harish Baxter MD Status: ADM IN Ordering Dr: Laureano Gallagher DO Date: 0 04/19/24 Location: U Sex: M C Admitted: 04/20/24 Test Reason : Blood Pressure : */* mmHG Vent. Rate : 69 BPM Atrial Rate : 69 BPM P-R Int : 126 ms QRS Dur : 82 ms QT Int : 426 ms P-R-T Axes : 54 -19 33 degrees QTcB Int : 456 ms Normal sinus rhythm Normal ECG Confirmed by ROSETTA CABELLO, KACEY ([id number]), editor producer LEANDER BRAY ([id number]) on04/24/2024 11:11:40 AM Referred By: KAYLAH Confirmed By: KACEY SARGENT MD 04/24/24 1111 Date _ Danette Sargent MD CC: Dr. Kwabena Menjivar MD; Dr. Laureano Gallagher DO; Dr. Harish Baxter MD ~ Signed [facility] Work Phone: Electrocardiogram reportOrde red By: David Granados on 04-24-2024 EKG study [facility] Cardiovascular Services [address] [place] [address] 12 Lead EKG 04/24/24 0501 MR#: [id number] Acct: [id number] Name: YAS ROSA Rep #:[id number] : 1940 83 From: David Granados MD Attending Dr: Dr. Harish Baxter MD Status: ADM IN Ordering Dr: Krish Guevara MD Date: 04/24/24 Location: [facility] Sex: M C Admitted: 04/20/24 Test Reason [...] UNCONFIRMED Confirmed by DARWIN CABELLO, DAVID ([id number]), editor producer LEANDER BRAY ([id number]) on 59:54:30 AM Referred By: Confirmed By: DAVID GRANADOS MD 04/24/24 0954 Date _ David Granados MD CC: Dr. Krish Guevara MD; Dr. Kwabena Menjivar MD; Dr. Harish Baxter MD ~ Signed [facility] Work Phone: Consultation - Orthopedicson 04-21-2024 Consultation - Orthopedics Normal [facility] CBC W/Diff, Automatedon - Absolute Lymph 2.09 X10 3/uL Normal 0.83-4.51 [facility] Comment on above: Performed By: #### L 100.0100 ####[facility] [address] [place], [address] Absolute Neut 8.7 X10 3/uL High 2.0-7.7 [facility] Comment on above: Performed By: #### L 100.0100 ####[facility] [address] [place], [address] Basophils/100 WBC (Bld) 0.1 % Normal 0-1 [facility] Comment on above: Performed By: #### L 100.0100 ####[facility] [address] [place], [address] Eosinophils/100 WBC (Bld) 0.1 % Normal 0-5 [facility] Comment on above: Performed By: #### L 100.0100 ####[facility] [address] [place], [address] Erythrocyte distribution width (RBC) [Ratio] 12.7 % Normal 11.6-14.6 [facility] Comment on above: Performed By: #### L 100.0100 ####[facility] [address] [place], [address] Hematocrit (Bld) [Volume fraction] 38.5 % Low 40-54 [facility] Comment on above: Performed By: #### L 100.0100 ####[facility] [address] [place], [address] Hemoglobin (Bld) [Mass/Vol] 13.2 g/dL Normal 13.0-16.5 [facility] Comment on above: Performed By: #### L 100.0100 ####[facility] [address] [place], [address] IG% 0.300 Normal 0.0-0.9 [facility] Comment on above: Result Comment: IG% - Immature Granulocytes (promyelocytes, myelocytes andmetamyelocytes) > 1% indicates that a LEFT SHIFT is Present. Performed By: #### L 100.0100 ####[facility] [address] [place], [address] Lymphocytes/100 WBC (Bld) 17.6 % Low 19-41 [facility] Comment on above: Performed By: #### L 100.0100 ####[facility] [address] [place], [address] MCH (RBC) [Entitic mass] 29.5 pg Normal 27.0-32.0 [facility] Comment on above: Performed By: #### L 100.0100 ####[facility] [address] [place], [address] MCHC (RBC) [Mass/Vol] 34.3 g/dL Normal 32-36 [facility] Comment on above: Performed By: #### L 100.0100 ####[facility] [address] [place], [address] MCV (RBC) [Entitic vol] 86.1 fL Normal 80-94 [facility] Comment on above: Performed By: #### L 100.0100 ####[facility] [address] [place], [address] Monocytes/100 WBC (Bld) 8.4 % Normal 0-10 [facility] Comment on above: Performed By: #### L 100.0100 ####[facility] [address] [place], [address] Neutrophils/100 WBC (Bld) 73.5 % High 47-70 [facility] Comment on above: Performed By: #### L 100.0100 ####[facility] [address] [place], [address] Nucleated RBC (Bld) [#/Vol] 0 10*3/uL Normal 0-5 [facility] Comment on above: Performed By: #### L 100.0100 ####[facility] [address] [place], [address] Platelet mean volume (Bld) [Entitic vol] 8.9 fL Normal 6.2-12.0 [facility] Comment on above: Performed By: #### L 100.0100 ####[facility] [address] [place], [address] Platelets (Bld) [#/Vol] 216 10*3/uL Normal 150-450 [facility] Comment on above: Performed By: #### L 100.0100 ####[facility] [address] [place], [address] RBC (Bld) [#/Vol] 4.47 10*6/uL Low 4.6-6.2 [facility] Comment on above: Performed By: #### L 100.0100 ####[facility] [address] [place], [address] RDW SD 39.5 fl Normal 35.1-43.9 [facility] Comment on above: Performed By: #### L 100.0100 ####[facility] [address] [place], [address] WBC (Bld) [#/Vol] 11.9 10*3/uL High 4.4-11.0 [facility] Comment on above: Performed By: #### L 100.0100 ####[facility] [address] [place], [address] Echocardiogram study reportO rdered By: Danette Sargent on 04-20-2024 Study report [facility] Cardiovascular Services [address] [place] [address] Echo Complete 04/19/24 1500 MR#: [id number] Acct: [id number] Name: YAS ROSA Rep #:[id number] : 1940 83 From: Danette cerrato MD Attending Dr: Dr. Keanu Alfred DO Status: ADM IN Ordering Dr: Keanu Alfred DO Date: Location: [facility] Sex: M C Admitted: 04/20/24 Reason For [...] Physician: Kwabena Menjivar Performed By: Melida Child, RDCS, RVT 04/20/24 1323 Date _ Danette Sargent MD CC: Dr. Kwabena Menjivar MD; Dr. Keanu Alfred, DO ~ Date Dictated: 04/19/24 1500 Date Transcribed: 04/20/24 132 Brace Maker: Signed [facility] Work Phone: 12 Lead EKGon 04-19-2024 12 Lead EKG Normal [facility] Absolute neutrophil countOrd ered By: Laureano Gallagher on 04-19-2024 Neutrophils (Bld) [#/Vol] 12.1 10*3/uL High 2.0-7.7 [facility] Activated partial thrombopla stin time (aPTT) in platelet poor plasma by coagulation aOrdered By: Laureano Gallagher on 04-19-2024 aPTT Coag (PPP) [Time] 23.4 s Low 24.1-36.2 [facility] Anion gap in Serum or Plasma Ordered By: Laureano Gallagher on 04-19-2024 Anion gap [Moles/Vol] 17 mmol/L High 5-15 [facility] BUN/creatinine ratioOrdered By: Laureano Gallagher on 04-19-2024 Urea nitrogen/Creatinine [Mass ratio] 21.7 mg/mg High 10-20 [facility] Basic Metabolic Profile (BMP )on 04-19-2024 BUN/CRE 21.7 RATIO High [facility]20 [facility] Comment on above: Performed By: #### L 501.4021, L100.0100, L300.3900, L500.2500, L300.4310 ####[facility] [address] [place], [address] Calcium [Mass/Vol] 9.5 mg/dL Normal 7.6-11.0 [facility] Comment on above: Performed By: #### L 501.4021, L100.0100, L300.3900, L500.2500, L300.4310 ####[facility] [address] [place], [address] Chloride [Moles/Vol] 98 mmol/L Normal 98-108 [facility] Comment on above: Performed By: #### L 501.4021, L100.0100, L300.3900, L500.2500, L300.4310 ####[facility] [address] [place], [address] CO2 [Moles/Vol] 22.0 mmol/L Normal 21.0-32.0 [facility] Comment on above: Performed By: #### L 501.4021, L100.0100, L300.3900, L500.2500, L300.4310 ####[facility] [address] [place], [address] Creatinine [Mass/Vol] 0.92 mg/dL Normal 0.70-1.20 [facility] Comment on above: Performed By: #### L 501.4021, L100.0100, L300.3900, L500.2500, L300.4310 ####[facility] [address] [place], [address] ECRCL 59.89 ml/min Normal 50-250 [facility] Comment on above: Performed By: #### L 501.4021, L100.0100, L300.3900, L500.2500, L300.4310 ####[facility] [address] [place], [address] GAP 17 High 5-15 [facility] Comment on above: Performed By: #### L 501.4021, L100.0100, L300.3900, L500.2500, L300.4310 ####[facility] [address] [place], [address] GFR/1.73 sq M.predicted among non-blacks MDRD (S/P/Bld) [Vol rate/Area] 83 mL/min/{1.73_m2} Normal >60 [facility] Comment on above: Result Comment: mL/m in/1.73m2 CKD-EPI Creatinine Equation (2020) Performed By: #### L 501.4021, L100.0100, L300.3900, L500.2500, L300.4310 ####[facility] [address] [place], [address] Glucose [Mass/Vol] 152 mg/dL High 70-99 [facility] Comment on above: Performed By: #### L 501.4021, L100.0100, L300.3900, L500.2500, L300.4310 ####[facility] [address] [place], [address] Potassium [Moles/Vol] 3.6 mmol/L Normal 3.3-5.1 [facility] Comment on above: Performed By: #### L 501.4021, L100.0100, L300.3900, L500.2500, L300.4310 ####[facility] [address] [place], [address] Sodium [Moles/Vol] 137 mmol/L Normal 133-145 [facility] Comment on above: Performed By: #### L 501.4021, L100.0100, L300.3900, L500.2500, L300.4310 ####[facility] [address] [place], [address] Urea nitrogen [Mass/Vol] 20 mg/dL High 4-19 [facility] Comment on above: Performed By: #### L 501.4021, L100.0100, L300.3900, L500.2500, L300.4310 ####[facility] [address] [place], [address] Basophil percentageOrdered B y: Laureano Gallagher on 04-19-2024 Basophils/100 WBC (Bld) 0.3 % 0-1 [facility] Bedside Glucoseon 04-19-2024 FINGERSTICK GLU 143 mg/dL High 74-106 [facility] Comment on above: Result Comment: ELIGIO BUSCH OF PATIENT CARE PER NURSING PROTOCOL Performed By: #### L 501.080 ####[facility] [address] [place], [address] Brain without Contraston Brain without Contrast Normal [facility] CBC W/Diff, Automatedon 04-08 Absolute Lymph 1.41 X10 3/uL Normal 0.83-4.51 [facility] Comment on above: Performed By: #### L 501.4021, L100.0100, L300.3900, L500.2500, L300.4310 ####[facility] [address] [place], [address] Absolute Neut 12.1 X10 3/uL High 2.0-7.7 [facility] Comment on above: Performed By: #### L 501.4021, L100.0100, L300.3900, L500.2500, L300.4310 ####[facility] [address] [place], [address] Basophils/100 WBC (Bld) 0.3 % Normal 0-1 [facility] Comment on above: Performed By: #### L 501.4021, L100.0100, L300.3900, L500.2500, L300.4310 ####[facility] [address] [place], [address] Eosinophils/100 WBC (Bld) 0.0 % Normal 0-5 [facility] Comment on above: Performed By: #### L 501.4021, L100.0100, L300.3900, L500.2500, L300.4310 ####[facility] [address] [place], [address] Erythrocyte distribution width (RBC) [Ratio] 12.3 % Normal 11.6-14.6 [facility] Comment on above: Performed By: #### L 501.4021, L100.0100, L300.3900, L500.2500, L300.4310 ####[facility] [address] [place], [address] Hematocrit (Bld) [Volume fraction] 45.5 % Normal 40-54 [facility] Comment on above: Performed By: #### L 501.4021, L100.0100, L300.3900, L500.2500, L300.4310 ####[facility] [address] [place], [address] Hemoglobin (Bld) [Mass/Vol] 16.0 g/dL Normal 13.0-16.5 [facility] Comment on above: Performed By: #### L 501.4021, L100.0100, L300.3900, L500.2500, L300.4310 ####[facility] [address] [place], [address] IG% 0.500 Normal 0.0-0.9 [facility] Comment on above: Result Comment: IG% - Immature Granulocytes (promyelocytes, myelocytes andmetamyelocytes) > 1% indicates that a LEFT SHIFT is Present. Performed By: #### L 501.4021, L100.0100, L300.3900, L500.2500, L300.4310 ####[facility] [address] [place], [address] Lymphocytes/100 WBC (Bld) 9.8 % Low 19-41 [facility] Comment on above: Performed By: #### L 501.4021, L100.0100, L300.3900, L500.2500, L300.4310 ####[facility] [address] [place], [address] MCH (RBC) [Entitic mass] 30.0 pg Normal 27.0-32.0 [facility] Comment on above: Performed By: #### L 501.4021, L100.0100, L300.3900, L500.2500, L300.4310 ####[facility] [address] [place], [address] MCHC (RBC) [Mass/Vol] 35.2 g/dL Normal 32-36 [facility] Comment on above: Performed By: #### L 501.4021, L100.0100, L300.3900, L500.2500, L300.4310 ####[facility] [address] [place], [address] MCV (RBC) [Entitic vol] 85.2 fL Normal 80-94 [facility] Comment on above: Performed By: #### L 501.4021, L100.0100, L300.3900, L500.2500, L300.4310 ####[facility] [address] [place], [address] Monocytes/100 WBC (Bld) 5.7 % Normal 0-10 [facility] Comment on above: Performed By: #### L 501.4021, L100.0100, L300.3900, L500.2500, L300.4310 ####[facility] [address] [place], [address] Neutrophils/100 WBC (Bld) 83.7 % High 47-70 [facility] Comment on above: Performed By: #### L 501.4021, L100.0100, L300.3900, L500.2500, L300.4310 ####[facility] [address] [place], [address] Nucleated RBC (Bld) [#/Vol] 0 10*3/uL Normal 0-5 [facility] Comment on above: Performed By: #### L 501.4021, L100.0100, L300.3900, L500.2500, L300.4310 ####[facility] [address] [place], [address] Platelet mean volume (Bld) [Entitic vol] 8.6 fL Normal 6.2-12.0 [facility] Comment on above: Performed By: #### L 501.4021, L100.0100, L300.3900, L500.2500, L300.4310 ####[facility] [address] [place], [address] Platelets (Bld) [#/Vol] 216 10*3/uL Normal 150-450 [facility] Comment on above: Performed By: #### L 501.4021, L100.0100, L300.3900, L500.2500, L300.4310 ####[facility] [address] [place], [address] RBC (Bld) [#/Vol] 5.34 10*6/uL Normal 4.6-6.2 [facility] Comment on above: Performed By: #### L 501.4021, L100.0100, L300.3900, L500.2500, L300.4310 ####[facility] [address] [place], [address] RDW SD 37.7 fl Normal 35.1-43.9 [facility] Comment on above: Performed By: #### L 501.4021, L100.0100, L300.3900, L500.2500, L300.4310 ####[facility] [address] [place], [address] WBC (Bld) [#/Vol] 14.4 10*3/uL High 4.4-11.0 [facility] Comment on above: Performed By: #### L 501.4021, L100.0100, L300.3900, L500.2500, L300.4310 ####[facility] [address] [place], [address] Carbon dioxide, total [Moles /volume] in Central venous bloodOrdered By: Laureano Gallagher on 04-19-2024 CO2 [Moles/Vol] 22.0 mmol/L 21.0-32.0 [facility] Chest 1 Viewon 04-19-2024 Chest 1 View Normal [facility] Chloride assayOrdered By: Donovan Gallagher on 04-19-2024 Chloride [Moles/Vol] 98 mmol/L 98-108 [facility] Consultation - Surgicalon Consultation - Surgical Normal [facility] Echo Completeon 04-19-2024 Echo Complete Normal [facility] Emergency Department Summary on 04-19-2024 Emergency Department Summary Normal [facility] Eosinophil percentageOrdered By: Laureano Gallagher on 04-19-2024 Eosinophils/100 WBC (Bld) 0.0 % 0-5 [facility] Erythrocyte distribution wid th ratioOrdered By: Laureano Gallagher on 04-19-2024 Erythrocyte distribution width (RBC) [Ratio] 12.3 % 11.6-14.6 [facility] Erythrocyte distribution wid th standard deviationOrdered By: Laureano Gallagher on 04-19-2024 Erythrocyte distribution width (RBC) [Entitic vol] 37.7 fL 35.1-43.9 [facility] Estimation of creatinine yahir aranceOrdered By: Laureano Gallagher on 04-19-2024 Estimated Creatinine Clearance Calc 59.89 ml/min 50-250 [facility] GFR/1.73 sq M.predicted darrick g non-blacks MDRD (S/P/Bld) [Vol rate/Area]Ordered By: Laureano Gallagher on 04-19-2024 Estimated GFR (MDRD) Non-Af Amer 83 >60 [facility] Comment on above: mL/min/1.73m2 CKD-EP I Creatinine Equation (2020) Glucose [facility] at [facility] deOrdered By: Laureano Gallagher on 04-19-2024 Bedside Glucose (Misc Panel) 143 mg/dL High 74-106 [facility] Comment on above: MANAGEMENT OF PATIEN T CARE PER NURSING PROTOCOL Glucose [Mass/Vol] 143 mg/dL High 74-106 [facility] H AND P Exam - Hospitaliston 04-19-2024 H&P Exam - Hospitalist Normal [facility] Hematocrit Auto (Bld) [Volum e fraction]Ordered By: Laureano Gallagher on 04-19-2024 Hematocrit (Bld) [Volume fraction] 45.5 % 40-54 [facility] Hemoglobin measurementOrdere d By: Laureano Gallagher on 04-19-2024 Hemoglobin (Bld) [Mass/Vol] 16.0 g/dL 13.0-16.5 [facility] Immature granulocytes/100 WB C Auto (Bld)Ordered By: Laureano Gallagher on 04-19-2024 Immature granulocytes/100 WBC (Bld) 0.500 % 0.0-0.9 [facility] Comment on above: IG% - Immature Granu locytes (promyelocytes, myelocytes and metamyelocytes) > 1% indicates that a LEFT SHIFT is Present. International normalized rat io (INR) calculationOrdered By: Laureano Gallagher on 04-19-2024 INR Coag (Bld) [Relative time] 1.0 {INR} [facility] L499.0042on 04-19-2024 Trop T High Sen 30 ng/L High <=22 [facility] Comment on above: Performed By: #### L 499.0042 ####[facility] [address] [place], [address] Trop T High Sen Normal <=22 [facility] Comment on above: Result Comment: Canbryce elled via OM: sequence error Performed By: #### L 499.0042 ####[facility] [address] [place], [address] L499.0043on 04-19-2024 Trop T High Sen 35 ng/L High <=22 [facility] Comment on above: Performed By: #### L 499.0043 ####[facility] [address] [place], [address] Trop T High Sen Normal <=22 [facility] Comment on above: Result Comment: PER OM STARTED SERIES OVER ON FLOOR ER DID NOT DRAW SPECIMEN Performed By: #### L 499.0043 ####[facility] [address] [place], [address] L501.4021on 04-19-2024 Trop T High Sen 31 ng/L High <=22 [facility] Comment on above: Performed By: #### L 501.4021 ####[facility] [address] [place], [address] Trop T High Sen 31 ng/L High <=22 [facility] Comment on above: Performed By: #### L 501.4021, L100.0100, L300.3900, L500.2500, L300.4310 ####[facility] [address] [place], [address] Lymphocytes Auto (Unsp spec) [#/Vol]Ordered By: Laureano Gallagher on 04-19-2024 Lymphocytes (Bld) [#/Vol] 1.41 10*3/uL 0.83-4.51 [facility] Lymphocytes/100 WBC Auto (Un sp spec)Ordered By: Laureano Gallagher on 04-19-2024 Lymphocytes/100 WBC (Bld) 9.8 % Low 19-41 [facility] MCV (mean corpuscular volume ) determinationOrdered By: Laureano Gallagher on 04-19-2024 MCV (RBC) [Entitic vol] 85.2 fL 80-94 [facility] Magnetic resonance imaging r eportOrdered By: Yas Mobley on 04-19-2024 Study report [facility] Imaging Services [address] [place] [address] Spine Cervical (Routine) MR#: [id number] Acct: [id number] Name: YAS ROSA Rep #: [id number] : 1940 M 83 From: Selwyn Mobley DO PCP: Dr. Kwabena Menjivar MD Status: ADM IRINA Study:Spine Cervical (Routine) Date of Exam: 04/19/24 Exam# [id number] Ordering Dr: Keanu Alfred DO PROCEDURE: MRI [...] related to severe spinal stenosis. [facility] CC: Dr. Kwabena Menjivar MD; Dr. Keanu Alfred DO ~ Brace Maker: Signed [facility] Study report [facility] Imaging Services [address] [place] [address] Brain without Contrast MR#: [id number] Acct: [id number] Name: YAS ROSA Rep #: [id number] : 1940 M 83 From: Selwyn Mobley DO PCP: Dr. Kwabena Menjivar MD Status: ADM IRINA Study:Brain without Contrast Date of Exam: 04/19/24 Exam# [id number] Ordering Dr: Keanu Alfred DO PROCEDURE: MRI [...] Dr. Kwabena Menjivar MD; Dr. Keanu Alfred, DO ~ Brace Maker: Signed [facility] Mean corpuscular hemoglobin (MCH) determinationOrdered By: Laureano Gallagher on 04-19-2024 MCH (RBC) [Entitic mass] 30.0 pg 27.0-32.0 [facility] Mean corpuscular hemoglobin concentration (MCHC) determinationOrdered By: Laureano Gallagher on 04-19-2024 MCHC (RBC) [Mass/Vol] 35.2 g/dL 32-36 [facility] Mean platelet volume determi nationOrdered By: Laureano Gallagher on 04-19-2024 Platelet mean volume (Bld) [Entitic vol] 8.6 fL 6.2-12.0 [facility] Monocyte percentageOrdered B y: Laureano Gallagher on 04-19-2024 Monocytes/100 WBC (Bld) 5.7 % 0-10 [facility] Neutrophil percentageOrdered By: Laureano Gallagher on 04-19-2024 Neutrophils/100 WBC (Bld) 83.7 % High 47-70 [facility] No Panel InformationOrdered By: Keanu Alfred on 04-19-2024 Troponin T High Sensitivity 31 ng/L High <22 [facility] 31 ng/L High <22 [facility] No Panel InformationOrdered By: Laureano Gallagher on 04-19-2024 Troponin T High Sensitivity 31 ng/L High <22 [facility] Nucleated red blood cell per centageOrdered By: Laureano Gallagher on 04-19-2024 Nucleated RBC/100 WBC (Bld) [Ratio] 0 % 0-5 [facility] Partial Thromboplast Timeon 04-19-2024 aPTT Coag (Bld) [Time] 23.4 s Low 24.1-36.2 [facility] Comment on above: Performed By: #### L 501.4021, L100.0100, L300.3900, L500.2500, L300.4310 ####[facility] [address] [place], [place], [id number] Platelet countOrdered By: Donovan Gallagher on 04-19-2024 Platelets (Bld) [#/Vol] 216 10*3/uL 150-450 [facility] Potassium (Unsp spec) [Mass/ Vol]Ordered By: Laureano Gallagher on 04-19-2024 Potassium [Moles/Vol] 3.6 mmol/L 3.3-5.1 [facility] Prothrombin Time w/INRon INR Coag (PPP) [Relative time] 1.0 {INR} Normal [facility] Comment on above: Performed By: #### L 501.4021, L100.0100, L300.3900, L500.2500, L300.4310 ####[facility] [address] [place], [address] PT Coag (PPP) [Time] 13.5 s Normal 11.7-14.9 [facility] Comment on above: Performed By: #### L 501.4021, L100.0100, L300.3900, L500.2500, L300.4310 ####[facility] [address] [place], [address] Prothrombin timeOrdered By: Laureano Gallagher on 04-19-2024 PT Coag (PPP) [Time] 13.5 s 11.7-14.9 [facility] RBC Auto (Bld) [#/Vol]Ordere d By: Laureano Gallagher on 04-19-2024 RBC (Bld) [#/Vol] 5.34 10*6/uL 4.6-6.2 [facility] STROKE Brain/Head without Co nton 04-19-2024 STROKE Brain/Head without Cont Normal [facility] STROKE CTA Head AND Neck W/C onon 04-19-2024 STROKE CTA Head AND Neck W/Con Normal [facility] Serum creatinine measurement (mass/volume)Ordered By: Laureano Gallagher on 04-19-2024 Creatinine [Mass/Vol] 0.92 mg/dL 0.70-1.20 [facility] Serum glucose measurement (m ass/volume)Ordered By: Laureano Gallagher on 04-19-2024 Glucose [Mass/Vol] 152 mg/dL High 70-99 [facility] Serum or plasma calcium ratna urement (mass/volume)Ordered By: Laureano Gallagher on 04-19-2024 Calcium [Mass/Vol] 9.5 mg/dL 7.6-11.0 [facility] Serum or plasma urea nitroge n measurement (mass/volume)Ordered By: Laureano Gallagher on 04-19-2024 Urea nitrogen [Mass/Vol] 20 mg/dL High 4-19 [facility] Sinus/Facial Boneon 04-20-19 25 Sinus/Facial Bone Normal [facility] Sodium levelOrdered By: Surinder Gallagher on 04-19-2024 Sodium [Moles/Vol] 137 mmol/L 133-145 [facility] Spine Cervical (Routine)on 0 04-19-2024 Spine Cervical (Routine) Normal [facility] Troponin T.cardiac High sens itivity method [Mass/Vol]Ordered By: Keanu Alfred on 04-19-2024 Troponin T High Sensitivity 4 Hour 35 ng/L High <22 [facility] Troponin T High Sensitivity 2 Hour 30 ng/L High <22 [facility] Troponin T.cardiac [Mass/vol ume] in Serum or Plasma by High sensitivity methodOrdered By: Keanu Alfred on 04-19-2024 Troponin T.cardiac High sensitivity method [Mass/Vol] 35 ng/L High <22 [facility] Troponin T.cardiac High sensitivity method [Mass/Vol] 30 ng/L High <22 [facility] White blood cell (WBC) count Ordered By: Laureano Gallagher on 04-19-2024 WBC (Bld) [#/Vol] 14.4 10*3/uL High 4.4-11.0 [facility] aPTT Coag (PPP) [Time]Ordere d By: Laureano Gallagher on 04-19-2024 aPTT Coag (Bld) [Time] 23.4 s Low 24.1-36.2 [facility] Cerv Spine 4 or 5 Viewson Cerv Spine 4 or 5 Views Normal [facility] Brain/Head without Contrasto n 02-26-2024 Brain/Head without Contrast Normal [facility] Emergency Department Summary on 02-26-2024 Emergency Department Summary Normal [facility] Knee 4 or More Viewson 02-25 Knee 4 or More Views Normal [facility] Shoulder min 2 Viewson 02-25 Shoulder min 2 Views Normal [facility] Absolute lymphocyte countOrd ered By: William Menjivar on 10-22-2022 Lymphocytes Auto (Unsp spec) [#/Vol] 2.36 10*3/uL 0.83-4.51 [facility] Basophil percentageOrdered B y: William Menjivar on 10-22-2022 Basophils/100 WBC (Bld) 0.5 % 0-1 [facility] Bilirubin [Mass/Vol] 0.40 mg/dL 0.20-1.00 [facility] Comment on above: For patients on eltr ombopag therapy, use of Dimension Alsip TBIL is not recommended. Chloride [Moles/Vol] 107 mmol/L 98-107 [facility] Cholesterol [Mass/Vol] 171 mg/dL <200 [facility] Comment on above: <200 mg/dL Desirable 200-240 mg/dL Borderline >240 mg/dL High Risk Eosinophils/100 WBC (Bld) 2.4 % 0-5 [facility] Glucose [Mass/Vol] 94 mg/dL 74-106 [facility] Neutrophils (Bld) [#/Vol] 3.5 10*3/uL 2.0-7.7 [facility] Neutrophils/100 WBC (Bld) 53.3 % 47-70 [facility] Potassium [Moles/Vol] 4.0 mmol/L 3.5-5.1 [facility] Protein [Mass/Vol] 6.8 g/dL 6.4-8.2 [facility] Sodium [Moles/Vol] 138 mmol/L 136-145 [facility] Testosterone [Mass/Vol] 600.99 ng/dL [facility] Comment on above: CENTRAL 90% REFERENC E RANGES MALE AGE <50 197.44 - 669.58 ng/dL MALE AGE > or = 50 187.72 - 684.19 ng/dL FEMALE AGE <50 8.38 - 35.01 ng/dL FEMALE AGE > or = 50 <7.00 - 35.92 ng/dL Effective as of 09/03/20 Triglyceride [Mass/Vol] 144 mg/dL <199 [facility] Comment on above: The drugs N-Acetylcy steine and Metamizole may falsely depress this assay.Serum Triglycerides Reference Interval Normal <150 mg/dL Borderline high 150 - 199 mg/dL High 200 - 499 mg/dL Very High > or = 500 mg/dL WBC (Bld) [#/Vol] 6.6 10*3/uL 4.4-11.0 [facility] Blood erythrocytes count (nu mber/volume)Ordered By: William Menjivar on 10-22-2022 RBC (Bld) [#/Vol] 5.14 10*6/uL 4.6-6.2 [facility] Blood hemoglobin measurement (mass/volume)Ordered By: William Menjivar on 10-22-2022 Hemoglobin (Bld) [Mass/Vol] 15.5 g/dL 13.0-16.5 [facility] Blood lymphocytes/100 leukoc ytesOrdered By: William Menjivar on 10-22-2022 Lymphocytes/100 WBC (Bld) 35.8 % 19-41 [facility] Blood monocytes/100 leukocyt esOrdered By: William Menjivar on 10-22-2022 Monocytes/100 WBC (Bld) 7.7 % 0-10 [facility] Blood platelet mean volumeOr dered By: William Menjivar on 10-22-2022 Platelet mean volume (Bld) [Entitic vol] 8.8 fL 6.2-12.0 [facility] Determination of erythrocyte mean corpuscular volume (MCV)Ordered By: William Menjivar on 10-22-2022 MCV (RBC) [Entitic vol] 90.1 fL 80-94 [facility] Erythrocyte sedimentation ra teOrdered By: William Menjivar on 10-22-2022 ESR (Bld) [Velocity] 10 mm/h 0-20 [facility] Hematocrit Auto (Bld) [Volum e fraction]Ordered By: William Menjivar on 10-22-2022 Hematocrit (Bld) [Volume fraction] 46.3 % 40-54 [facility] Iron measurement (mass/mass) Ordered By: William Menjivar on 10-22-2022 Iron (Unsp spec) [Mass/Mass] 75 ug/dL 65-175 [facility] Laboratory - Chemistry and C hemistry - challengeOrdered By: William Menjivar on 10-22-2022 ALP [Catalytic activity/Vol] 98 U/L 45-117 [facility] ALT [Catalytic activity/Vol] 28 U/L 16-61 [facility] CO2 [Moles/Vol] 27.0 mmol/L 21.0-32.0 [facility] Cobalamin (Vitamin B12) [Mass/Vol] 266 pg/mL 211-911 [facility] Globulin (S) [Mass/Vol] 3.0 g/dL 2.2-4.2 [facility] Urea nitrogen/Creatinine [Mass ratio] 12.5 mg/mg 10-20 [facility] Laboratory - Hematology and Cell countsOrdered By: William Menjivar on 10-22-2022 Erythrocyte distribution width (RBC) [Entitic vol] 41.8 fL 35.1-43.9 [facility] Erythrocyte distribution width (RBC) [Ratio] 12.5 % 11.6-14.6 [facility] Immature granulocytes/100 WBC (Bld) 0.300 % 0.0-0.9 [facility] Comment on above: IG% - Immature Granu locytes (promyelocytes, myelocytes and metamyelocytes) > 1% indicates that a LEFT SHIFT is Present. MCH (RBC) [Entitic mass] 30.2 pg 27.0-32.0 [facility] Nucleated RBC/100 WBC (Bld) [Ratio] 0 % 0-5 [facility] MCHC Auto (RBC) [Mass/Vol]Or dered By: William Menjivar on 10-22-2022 MCHC (RBC) [Mass/Vol] 33.5 g/dL 32-36 [facility] No Panel InformationOrdered By: William Menjivar on 10-22-2022 Anti-Nuclear Antibody Screen Positive Negative [facility] Comment on above: Performed at: - [facility] [id number] [place], [place] [id number] Director: Nino Del Castillo PhD, Phone: [phone] Estimated GFR (MDRD) Amer 119 mL/min >60 [facility] Comment on above: GFR Calc Estimated GFR (MDRD) Non-Af Amer 99 mL/min >60 [facility] Comment on above: Non- GFR Calc Thyroid Stimulating Hormone (TSH) 1.22 uIU/mL 0.358-3.74 [facility] Vitamin D 25-Hydroxy 28.9 ng/mL [facility] Comment on above: Vitamin D 25(OH) Sta tus Range Deficiency <20 ng/mL (50nmol/L) Insufficiency 20 - 30 ng/mL (50 - 75 nmol/L) Sufficiency 30 - 100 ng/mL (75 - 250 nmol/L) Toxicity >100 ng/mL (>250 nmol/L) Platelets bldOrdered By: Blayne Menjivar on 10-22-2022 Platelets (Bld) [#/Vol] 210 10*3/uL 150-450 [facility] Serum or plasma C reactive p rotein measurement (mass/volume)Ordered By: William Menjivar on 10-22-2022 CRP [Mass/Vol] mg/L 0.0-3.0 [facility] Comment on above: C-Reactive Protein ( CRP) provides useful information for thediagnosis, therapy and monitoring of inflammatory processesand associated diseases. For the evaluation of Relative Riskfor Cardiovascular Disease, a High Sensitivity CRP (HSCRP)should be ordered. Serum or plasma albumin ratna urement (mass/volume)Ordered By: William Menjivar on 10-22-2022 Albumin [Mass/Vol] 3.8 g/dL 3.2-5.0 [facility] Serum or plasma albumin/glob ulin mass ratioOrdered By: William Menjivar on 10-22-2022 Albumin/Globulin [Mass ratio] 1.3 {ratio} 0.9-2.4 [facility] Serum or plasma calcium ratna urement (mass/volume)Ordered By: William Menjivar on 10-22-2022 Calcium [Mass/Vol] 8.8 mg/dL 8.5-10.1 [facility] Serum or plasma cholesterol in HDL measurement (mass/volume)Ordered By: William Menjivar on 10-22-2022 Cholesterol in HDL [Mass/Vol] 52 mg/dL >40 [facility] Comment on above: The drugs N-Acetylcy steine and Metamizole may falsely depress this assay. Reference Range HDL <40 mg/dL Low HDL Cholesterol HDL >or= 60 mg/dL High HDL Cholesterol Serum or plasma cholesterol in VLDL measurement (mass/volume)Ordered By: William Menjivar on 10-22-2022 Cholesterol in VLDL [Mass/Vol] 29 mg/dL 5-40 [facility] Serum or plasma creatinine m easurement (mass/volume)Ordered By: William Menjivar on 10-22-2022 Creatinine [Mass/Vol] 0.80 mg/dL 0.70-1.30 [facility] Comment on above: The validity of the calculated GFR & GFRAA in patients over 70 years has not been determined. Clinical correlation is essential. Serum or plasma ferritin darline surement (mass/volume)Ordered By: William Menjivar on 10-22-2022 Ferritin [Mass/Vol] 168 ng/mL 26-388 [facility] Serum or plasma low density lipoprotein (LDL) cholesterol measurement (mass/volume)Ordered By: William Menjivar on 10-22-2022 Cholesterol in LDL [Mass/Vol] 90 mg/dL 0-130 [facility] Serum or plasma urea nitroge n measurement (mass/volume)Ordered By: William Menjivar on 10-22-2022 Urea nitrogen [Mass/Vol] 10 mg/dL 7-18 [facility] Serum rheumatoid factor dete ctionOrdered By: William Menjivar on 10-22-2022 Rheumatoid factor Ql (S) < 10.0 IU/mL <15 [facility] Thin prep Papanicolaou smear with manual screeningOrdered By: William Menjivar on 10-22-2022 Thin prep Papanicolaou smear with manual screening 20 U/L 15-37 [facility] Thin prep Papanicolaou smear with manual screening 4 5-15 [facility] Emergency Room Note on 09-18-2016 [place] [facility] Note Normal [facility] ([place] .Auto Diffon 09-15-2016 Basophils Auto #/vol (Bld) 0.10 10 3/mcL Normal 0.00-0.19 [facility] Comment on above: Performed By: #### C BC, ADIFF, ANEU, TROP, GFR, CMP ####[address] [place], [place] [address] Basophils/100 WBC Auto (Bld) 0.7 % Normal 0.0-2.5 [facility] ([place]) Comment on above: Performed By: #### C BC, ADIFF, ANEU, TROP, GFR, CMP ####Macy [address] [place], [place] [address] Eosinophils 0.00 10 3/mcL Normal 0.00-0.40 [facility] ([place]) Comment on above: Performed By: #### C BC, ADIFF, ANEU, TROP, GFR, CMP ####Macy [address] [place], [place] [address] Eosinophils/100 leukocytes 0.5 % Normal 0.0-7.0 [facility] ([place] Comment on above: Performed By: #### C BC, ADIFF, ANEU, TROP, GFR, CMP ####Macy [address] [place], [place] [address] Lymphocytes 1.90 10 3/mcL Normal 0.77-3.85 [facility] ([place] Comment on above: Performed By: #### C BC, ADIFF, ANEU, TROP, GFR, CMP ####Macy [address] [place], [place] [address] Lymphocytes/100 leukocytes 21.5 % Normal 10.0-50.0 [facility] ([place] Comment on above: Performed By: #### C BC, ADIFF, ANEU, TROP, GFR, CMP ####Macy [address] [place], [place] [address] Monocytes 0.70 10 3/mcL Normal 0.15-1.00 [facility] ([place] Comment on above: Performed By: #### C BC, ADIFF, ANEU, TROP, GFR, CMP ####Macy [address] [place], [place] [address] Monocytes/100 leukocytes 7.5 % Normal 1.7-13.0 [facility] ([place] Comment on above: Performed By: #### C BC, ADIFF, ANEU, TROP, GFR, CMP ####Macy [address] [place], [place] [address] Neutrophils/100 WBC Auto (Bld) 69.8 % Normal 37.0-80.0 [facility] ([place] Comment on above: Performed By: #### C BC, ADIFF, ANEU, TROP, GFR, CMP ####Macy [address] [place], [place] [address] .NEUABSon 09-15-2016 Neutrophils 6.30 10 3/mcL High 2.85-6.16 [facility] ([place]) Comment on above: Performed By: #### C BC, ADIFF, ANEU, TROP, GFR, CMP ####Macy [address] [place], [place] [address] CBCon 09-15-2016 Erythrocyte distribution width Auto Ratio (RBC) 13.0 % Normal 11.5-14.5 [facility] ([place] Comment on above: Performed By: #### C BC, ADIFF, ANEU, TROP, GFR, CMP ####Macy [address] [place], [place] [address] Erythrocytes (RBC) 5.10 10 6/mcL Normal 4.04-6.13 [facility] ([place]) Comment on above: Performed By: #### C BC, ADIFF, ANEU, TROP, GFR, CMP ####Macy [address] [place], [place] [address] Hematocrit (HCT) 43.6 % Normal 42.0-52.0 [facility] ([place] Comment on above: Performed By: #### C BC, ADIFF, ANEU, TROP, GFR, CMP ####Macy [address] [place], [place] [address] Hemoglobin mass conc (Bld) 14.9 G/dL Normal 14.0-18.0 [facility] ([place] Comment on above: Performed By: #### C BC, ADIFF, ANEU, TROP, GFR, CMP ####Macy [address] [place], [place] [address] MCH 29.1 pg Normal 27.0-31.2 [facility] ([place] Comment on above: Performed By: #### C BC, ADIFF, ANEU, TROP, GFR, CMP ####Macy [address] [place], [place] [address] MCHC mass conc (RBC) 34.1 G/dL Normal 31.8-35.4 [facility] ([place]) Comment on above: Performed By: #### C BC, ADIFF, ANEU, TROP, GFR, CMP ####M[address] [place], [place] [address] MCV 85.5 fL Normal 80.0-94.0 [facility] ([place] Comment on above: Performed By: #### C BC, ADIFF, ANEU, TROP, GFR, CMP ####Macy [address] [place], [place] [address] Platelet mean volume (PMV) 6.7 fL Low 7.4-10.4 [facility] ([place] Comment on above: Performed By: #### C BC, ADIFF, ANEU, TROP, GFR, CMP ####Macy [address] [place], [place] [address] Platelets 207 10 3/mcL Normal 130-400 [facility] ([place] Comment on above: Performed By: #### C BC, ADIFF, ANEU, TROP, GFR, CMP ####Macy [address] [place], [place] [address] WBC (Leukocytes) 9.00 10 3/mcL Normal 4.60-10.80 [facility] ([place]) Comment on above: Performed By: #### C BC, ADIFF, ANEU, TROP, GFR, CMP ####Macy [address] [place], [place] [address] CMPon 09-15-2016 BUN/Creatinine Ratio 11 ratio Normal 7-27 [facility] ([place] Comment on above: Performed By: #### C BC, ADIFF, ANEU, TROP, GFR, CMP ####Macy [address] [place], [place] [address] Creatinine 1.1 mg/dL Normal 0.6-1.2 [facility] ([place]) Comment on above: Performed By: #### C BC, ADIFF, ANEU, TROP, GFR, CMP ####M[address] [place], [place] [address] Alanine aminotransferase (ALT) 13 ZZ Normal 10-35 [facility] ([place]) Comment on above: Performed By: #### C BC, ADIFF, ANEU, TROP, GFR, CMP ####M[address] [place], [place] [address] Albumin 4.6 G/dL Normal 3.4-4.8 [facility] ([place] Comment on above: Performed By: #### C BC, ADIFF, ANEU, TROP, GFR, CMP ####M[address] [place], [place] [address] Albumin/Globulin Ratio 1.8 {ratio} Normal 1.1-2.5 [facility] ([place] Comment on above: Performed By: #### C BC, ADIFF, ANEU, TROP, GFR, CMP ####[address] [place], [place] [address] Alk Phos 80 ZZ Normal 40-135 [facility] ([place] Comment on above: Performed By: #### C BC, ADIFF, ANEU, TROP, GFR, CMP ####M[address] [place], [place] [address] Aspartate aminotransferase (AST) 14 ZZ Normal 10-40 [facility] ([place] Comment on above: Performed By: #### C BC, ADIFF, ANEU, TROP, GFR, CMP ####M[address] [place], [place] [address] Bili Total 0.7 mg/dL Normal 0.2-1.0 [facility] ([place] Comment on above: Performed By: #### C BC, ADIFF, ANEU, TROP, GFR, CMP ####M[address] [place], [place] [address] Calcium 9.3 mg/dL Normal 8.4-10.2 [facility] ([place] Comment on above: Performed By: #### C BC, ADIFF, ANEU, TROP, GFR, CMP ####[place] [place], [place] [address] CO2 23 mmol/L Normal 23-31 [facility] ([place] Comment on above: Performed By: #### C BC, ADIFF, ANEU, TROP, GFR, CMP ####[address] [place], [place] [address] Electrolyte Balance 10.0 mEq/L Normal [facility] ([place]) Comment on above: Performed By: #### C BC, ADIFF, ANEU, TROP, GFR, CMP ####[place] [place], [place] [address] Globulin 2.5 G/dL Normal [facility] ([place] Comment on above: Performed By: #### C BC, ADIFF, ANEU, TROP, GFR, CMP ####[address] [place], [place] [address] Glucose mass conc 104 mg/dL Normal 83-110 [facility] ([place] Comment on above: Performed By: #### C BC, ADIFF, ANEU, TROP, GFR, CMP ####[address] [place], [place] [address] Protein 7.1 G/dL Normal 6.0-8.3 [facility] ([place] Comment on above: Performed By: #### C BC, ADIFF, ANEU, TROP, GFR, CMP ####[address] [place], [place] [address] Urea nitrogen 12.6 mg/dL Normal 7.0-18.0 [facility] ([place] Comment on above: Performed By: #### C BC, ADIFF, ANEU, TROP, GFR, CMP ####[address] [place], [place] [address] Chloride 102 mmol/L Normal 98-107 [facility] ([place] Comment on above: Performed By: #### C BC, ADIFF, ANEU, TROP, GFR, CMP ####[address] [place], [place] [address] Potassium molar conc 4.1 mmol/L Normal 3.5-5.1 [facility] ([place] Comment on above: Performed By: #### C BC, ADIFF, ANEU, TROP, GFR, CMP ####Macy [address] [place], [place] [address] Sodium 135 mmol/L Low 136-146 [facility] ([place] Comment on above: Performed By: #### C BC, ADIFF, ANEU, TROP, GFR, CMP ####Macy [address] [place], [place] [address] CT ABD/PELVIS W/ IV CONTRAST ONLYon 09-15-2016 [...] CT may be useful. Interpreted By: Jian Ferguson MDPreliminary Report By: Jian Ferguson MDElectronically Signed By: Jian Ferguson MD Dictated Date: 09/15/2016 12:16:26 AM Prelim Date: 09/15/2016 12:16:26 AM Sign Date: 09/15/2016 12:20:36 AM Normal [facility] ([place]) GFRon 09-15-2016 eGFR (non-black) 79 ml/min/1.73sqm Normal A [facility] ([place]) Comment on above: Result Comment: GFR Population [...] ADIFF, ANEU, TROP, GFR, CMP ####Macy [address] [place], [place] [address] eGFR (non-black) mL/min/{1.73_m2} Normal [facility] ([place]) Comment on above: Result Comment: GFR Population [...] ADIFF, ANEU, TROP, GFR, CMP ####M[address] [place], [place] [address] LIPon 09-15-2016 Lipase Level 26 ZZ Normal 8-78 [facility] ([place]) Comment on above: Performed By: #### C BC, ADIFF, ANEU, TROP, GFR, CMP ####M[address] [place], [place] [address] [facility] Note on 09-15-2016 [facility] Note Normal [facility] ([place]) Patient Summary Documentson 09-15-2016 Patient Summary Documents Normal [facility] ([place]) .Auto Diffon 09-12-2016 Basophils Auto #/vol (Bld) 0.00 10 3/mcL Normal 0.00-0.19 [facility] ([place] Comment on above: Performed By: #### C BC, ADIFF, ANEU, TROP, GFR, CMP ####Macy [address] [place], [place] [address] Basophils/100 WBC Auto (Bld) 0.5 % Normal 0.0-2.5 [facility] ([place] Comment on above: Performed By: #### C BC, ADIFF, ANEU, TROP, GFR, CMP ####M[address] [place], [place] [address] Eosinophils 0.00 10 3/mcL Normal 0.00-0.40 [facility] ([place] Comment on above: Performed By: #### C BC, ADIFF, ANEU, TROP, GFR, CMP ####Macy [address] [place], [place] [address] Eosinophils/100 leukocytes 0.4 % Normal 0.0-7.0 [facility] ([place] Comment on above: Performed By: #### C BC, ADIFF, ANEU, TROP, GFR, CMP ####Macy [address] [place], [place] [address] Lymphocytes 2.50 10 3/mcL Normal 0.77-3.85 [facility] ([place] Comment on above: Performed By: #### C BC, ADIFF, ANEU, TROP, GFR, CMP ####M[address] [place], [place] [address] Lymphocytes/100 leukocytes 28.8 % Normal 10.0-50.0 [facility] ([place] Comment on above: Performed By: #### C BC, ADIFF, ANEU, TROP, GFR, CMP ####M[address] [place], [place] [address] Monocytes 0.80 10 3/mcL Normal 0.15-1.00 [facility] ([place] Comment on above: Performed By: #### C BC, ADIFF, ANEU, TROP, GFR, CMP ####Macy [address] [place], [place] [address] Monocytes/100 leukocytes 9.2 % Normal 1.7-13.0 [facility] ([place] Comment on above: Performed By: #### C BC, ADIFF, ANEU, TROP, GFR, CMP ####M[address] [place], [place] [address] Neutrophils/100 WBC Auto (Bld) 61.1 % Normal 37.0-80.0 [facility] ([place] Comment on above: Performed By: #### C BC, ADIFF, ANEU, TROP, GFR, CMP ####Macy [address] [place], [place] [address] .NEUABSon 09-12-2016 Neutrophils 5.30 10 3/mcL Normal 2.85-6.16 [facility] ([place] Comment on above: Performed By: #### C BC, ADIFF, ANEU, TROP, GFR, CMP ####Macy [address] [place], [place] [address] .Urinalysis Microscopic (AO) on 09-12-2016 UA Squam Epithelial 0-5 Abnormal None Seen [facility] [place] Comment on above: Performed By: #### U A, UAMICAO ####Macy [address] [place], [place] [address] UA WBC None Seen Normal None Seen [facility] ([place] Comment on above: Performed By: #### U A, UAMICAO ####Macy [address] [place], [place] [address] Urine, erythrocytes None Seen Normal None Seen [facility] ([place] Comment on above: Performed By: #### U A, UAMICAO ####M[address] [place], [place] [address] CBCon 09-12-2016 Erythrocyte distribution width Auto Ratio (RBC) 12.9 % Normal 11.5-14.5 [facility] ([place] Comment on above: Performed By: #### C BC, ADIFF, ANEU, TROP, GFR, CMP ####M[address] [place], [place] [address] Erythrocytes (RBC) 4.97 10 6/mcL Normal 4.04-6.13 [facility] ([place] Comment on above: Performed By: #### C BC, ADIFF, ANEU, TROP, GFR, CMP ####Macy [address] [place], [place] [address] Hematocrit (HCT) 42.2 % Normal 42.0-52.0 [facility] ([place] Comment on above: Performed By: #### C BC, ADIFF, ANEU, TROP, GFR, CMP ####Macy [address] [place], [place] [address] Hemoglobin mass conc (Bld) 14.5 G/dL Normal 14.0-18.0 [facility] ([place] Comment on above: Performed By: #### C BC, ADIFF, ANEU, TROP, GFR, CMP ####Macy [address] [place], [place] [address] MCH 29.3 pg Normal 27.0-31.2 [facility] ([place] Comment on above: Performed By: #### C BC, ADIFF, ANEU, TROP, GFR, CMP ####Macy [address] [place], [place] [address] MCHC mass conc (RBC) 34.4 G/dL Normal 31.8-35.4 [facility] ([place] Comment on above: Performed By: #### C BC, ADIFF, ANEU, TROP, GFR, CMP ####Macy [address] [place], [place] [address] MCV 85.0 fL Normal 80.0-94.0 [facility] ([place] Comment on above: Performed By: #### C BC, ADIFF, ANEU, TROP, GFR, CMP ####Macy [address] [place], [place] [address] Platelet mean volume (PMV) 6.8 fL Low 7.4-10.4 [facility] ([place] Comment on above: Performed By: #### C BC, ADIFF, ANEU, TROP, GFR, CMP ####Macy [address] [place], [place] [address] Platelets 196 10 3/mcL Normal 130-400 [facility] ([place] Comment on above: Performed By: #### C BC, ADIFF, ANEU, TROP, GFR, CMP ####Macy [address] [place], [place] [address] WBC (Leukocytes) 8.70 10 3/mcL Normal 4.60-10.80 [facility] [place] Comment on above: Performed By: #### C BC, ADIFF, ANEU, TROP, GFR, CMP ####M[address] [place], [place] [address] CMPon 09-12-2016 Aspartate aminotransferase (AST) 15 ZZ Normal 10-40 [facility] ([place] Comment on above: Performed By: #### C BC, ADIFF, ANEU, TROP, GFR, CMP ####M[address] [place], [place] [address] Alanine aminotransferase (ALT) 14 ZZ Normal 10-35 [facility] ([place] Comment on above: Performed By: #### C BC, ADIFF, ANEU, TROP, GFR, CMP ####Macy [address] [place], [place] [address] Alk Phos 74 ZZ Normal 40-135 [facility] ([place] Comment on above: Performed By: #### C BC, ADIFF, ANEU, TROP, GFR, CMP ####M[address] [place], [place] [address] Glucose mass conc 96 mg/dL Normal 83-110 [facility] ([place] Comment on above: Performed By: #### C BC, ADIFF, ANEU, TROP, GFR, CMP ####M[address] [place], [place] [address] Albumin/Globulin Ratio 1.9 {ratio} Normal 1.1-2.5 A [facility] ([place] Comment on above: Performed By: #### C BC, ADIFF, ANEU, TROP, GFR, CMP ####M[address] [place], [place] [address] Globulin 2.3 G/dL Normal [facility] ([place] Comment on above: Performed By: #### C BC, ADIFF, ANEU, TROP, GFR, CMP ####M[address] [place], [place] [address] Protein 6.6 G/dL Normal 6.0-8.3 [facility] ([place] Comment on above: Performed By: #### C BC, ADIFF, ANEU, TROP, GFR, CMP ####Macy [address] [place], [place] [address] Chloride 101 mmol/L Normal 98-107 [facility] ([place] Comment on above: Performed By: #### C BC, ADIFF, ANEU, TROP, GFR, CMP ####Macy [address] [place], [place] [address] Electrolyte Balance 11.0 mEq/L Normal [facility] ([place] Comment on above: Performed By: #### C BC, ADIFF, ANEU, TROP, GFR, CMP ####Macy [address] [place], [place] [address] Potassium molar conc 4.2 mmol/L Normal 3.5-5.1 [facility] ([place] Comment on above: Performed By: #### C BC, ADIFF, ANEU, TROP, GFR, CMP ####Macy [address] [place], [place] [address] Sodium 135 mmol/L Low 136-146 [facility] ([place] Comment on above: Performed By: #### C BC, ADIFF, ANEU, TROP, GFR, CMP ####Macy [address] [place], [place] [address] Bili Total 0.8 mg/dL Normal 0.2-1.0 [facility] ([place] Comment on above: Performed By: #### C BC, ADIFF, ANEU, TROP, GFR, CMP ####Macy [address] [place], [place] [address] BUN/Creatinine Ratio 14 ratio Normal 7-27 [facility] ([place] Comment on above: Performed By: #### C BC, ADIFF, ANEU, TROP, GFR, CMP ####Macy [address] [place], [place] [address] Calcium 8.9 mg/dL Normal 8.4-10.2 [facility] ([place] Comment on above: Performed By: #### C BC, ADIFF, ANEU, TROP, GFR, CMP ####Macy [address] [place], [place] [address] CO2 23 mmol/L Normal 23-31 [facility] ([place] Comment on above: Performed By: #### C BC, ADIFF, ANEU, TROP, GFR, CMP ####Macy [address] [place], [place] [address] Creatinine 1.0 mg/dL Normal 0.6-1.2 [facility] ([place] Comment on above: Performed By: #### C BC, ADIFF, ANEU, TROP, GFR, CMP ####M[address] [place], [place] [address] Albumin 4.3 G/dL Normal 3.4-4.8 [facility] ([place] Comment on above: Performed By: #### C BC, ADIFF, ANEU, TROP, GFR, CMP ####M[address] [place], [place] [address] Urea nitrogen 13.9 mg/dL Normal 7.0-18.0 [facility] ([place] Comment on above: Performed By: #### C BC, ADIFF, ANEU, TROP, GFR, CMP ####Macy [address] [place], [place] [address] CT HEAD OR BRAIN W/O CONTRAS Ton [...] the resident's findings and interpretation. Interpreted By: Short ,Emiliano MDPreliminary Report By: Jacoby Bess MDElectronically Signed By: Emiliano Ratliff MD Dictated Date: 09/12/2016 5:31:15 PM Prelim Date: 09/12/2016 5:32:01 PM Sign Date: 09/12/2016 5:53:51 PM Normal [facility] ([place]) GFRon 09-12-2016 eGFR (non-black) mL/min/{1.73_m2} Normal [facility] ([place]) Comment on above: Result Comment: GFR Population [...] BC, ADIFF, ANEU, TROP, GFR, CMP ####Macy [address] [place], [place] [address] eGFR (non-black) 91 ml/min/1.73sqm Normal A [facility] ([place] Comment on above: Result Comment: GFR Population [...] BC, ADIFF, ANEU, TROP, GFR, CMP ####Macy [address] [place], [place] [address] Patient Summary Documentson 09-12-2016 Patient Summary Documents Normal [facility] ([place]) TROPon 09-12-2016 Troponin I.cardiac mass conc ng/mL Normal 0.00-0.30 [facility] ([place]) Comment on above: Result Comment: Belo w measuring range>=0.30 Consistent with cardiac damage, increased clinical risk and possibility of myocardial infarction. Serial measurements, clinical history, appropriate symptoms and/or ECG changes may help assess possibility of CA.*Other non-acute coronary syndrome conditions such as CHF, myocarditis, pulmonary emboli, sepsis and cardiac surgery could result in myocardial damage and increased troponin levels. Performed By: #### C BC, ADIFF, ANEU, TROP, GFR, CMP ####M[address] [place] [address] UAon 09-12-2016 UA Appear CLEAR Normal [facility] ([place] Comment on above: Performed By: #### U A, UAMICAO ####Macy [address] [place] [address] UA Blood Negative [facility] ([place] Comment on above: Performed By: #### U A, UAMICAO ####Macy [address] [place] [address] UA Leuk Est Negative [facility] ([place] Comment on above: Performed By: #### U A, UAMICAO ####Macy [address] [place] [address] UA Nitrite Negative [facility] ([place] Comment on above: Performed By: #### U A, UAMICAO ####Macy [address] [place] [address] UA pH 5.5 Replaced by [facility]) Comment on above: Performed By: #### U A, UAMICAO ####Macy [address] [place] [address] UA Protein Negative [facility] ([place] Comment on above: Performed By: #### U A, UAMICAO ####Macy [address] [place], [place] [address] UA Spec Grav 1.020 Normal [facility] ([place] Comment on above: Performed By: #### U A, UAMICAO ####Macy [address] [place], [place] [address] UA Specimen Type Clean Catch Normal [facility] ([place] Comment on above: Performed By: #### U A, UAMICAO ####Macy [address] [place] [address] UA Urobilinogen 0.2 E.U./dL [facility] ([place] Comment on above: Performed By: #### U A, UAMICAO ####Macy [address] [place] [address] Urine, color YELLOW Normal [facility] ([place] Comment on above: Performed By: #### U A, UAMICAO ####Macy [address] [place] [address] Urine, glucose Negative [facility] ([place] Comment on above: Performed By: #### U A, UAMICAO ####Macy [address] [place], [place] [address] Urine, ketones presence 40 mg/dL Abnormal Negative A [facility] ([place] Comment on above: Performed By: #### U A, UAMICAO ####Macy [address] [place], [place] [address] Urine, urobilinogen Negative Normal [facility] ([place] Comment on above: Performed By: #### U A, UAMICAO ####Macy [address] [place], [place] [address] XR CHEST 1 VIEWon 09-12-2016 XR CHEST [...] resident's findings and interpretation. Interpreted By: Emiliano Ratliff MDPreliminary Report By: Jacoby Bess MDElectronically Signed By: Emiliano Ratliff MD Dictated Date: 09/12/2016 5:30:33 PM Prelim Date: 09/12/2016 5:30:59 PM Sign Date: 09/12/2016 5:55:03 PM Normal [facility] ([place]) Vital Signs Date Time Vital Sign Value Performing Clinician Jonny escobar 07-27-2024 17:38-0400 Body height 172.[address] Kwabena Menjivar MD Work Phone: [facility] 05-25-2024 13:01-0400 Body height 172.[address] Kwabena Menjivar MD Work Phone: [facility] 05-25-2024 13:01-0400 Body mass index (BMI) [Ratio] 23.1 kg/m2 Dr. Kwabena Menjivar MD Work Phone: [facility] 05-25-2024 13:01-0400 Body weight 68.[address] Kwabena Menjivar MD Work Phone: [facility] 05-25-2024 13:01-0400 Diastolic blood pressure 52 mm[Hg] Dr. Kwabena Menjivar MD Work Phone: [facility] 05-25-2024 13:01-0400 Heart rate 73 /min Dr. Kwabena Menjivar MD Work Phone: [facility] 05-25-2024 13:01-0400 Respiratory rate 16 /min Dr. Kwabena Menjivar MD Work Phone: [facility] 05-25-2024 13:01-0400 SaO2% (BldA) [Mass fraction] 96 % Dr. Kwabena Menjivar MD Work Phone: [facility] 05-25-2024 13:01-0400 Systolic blood pressure 82 mm[Hg] Dr. Kwabena Menjivar MD Work Phone: [facility] 05-20-2024 09:20-0400 Diastolic blood pressure 67 mm[Hg] Dr. Kwabena Menjivar MD Work Phone: [facility] 05-20-2024 09:20-0400 Heart rate 59 /min Dr. Kwabena Menjivar MD Work Phone: [facility] 05-20-2024 09:20-0400 Systolic blood pressure 136 mm[Hg] Dr. Kwabena Menjivar MD Work Phone: 7(514)314-883889 [place] [address] 05-20-2024 06:00-0400 Body mass index (BMI) [Ratio] 24.3 kg/m2 Dr. Kwabena Menjivar MD Work Phone: 0(552)349-638689 [place] [address] 05-20-2024 06:00-0400 Body temperature 97.2 [degF] Dr. Kwabena Menjivar MD Work Phone: 4(713)299-004189 [place] [address] 05-20-2024 06:00-0400 Body weight [address] Kwabena Menjivar MD Work Phone: 4(535)282-094489 [place] [address] 05-20-2024 06:00-0400 Respiratory rate 16 /min Dr. Kwabena Menjivar MD Work Phone: 4(256)070-803789 [place] [address] 05-20-2024 06:00-0400 SaO2% (BldA) [Mass fraction] 97 % Dr. Kwabena Menjivar MD Work Phone: 4(343)653-250889 [place] [address] 05-12-2024 08:43-0400 Body height [address] Kwabena Menjivar MD Work Phone: 4(174)418-013089 [place] [address] 04-27-2024 14:23-0400 Body temperature 97.8 [degF] Dr. Kwabena Menjivar MD Work Phone: 4(179)604-579311 [place] [address] 04-27-2024 14:23-0400 Diastolic blood pressure 64 mm[Hg] Dr. Kwabena Menjivar MD Work Phone: 7(033)952-242889 [place] [address] 04-27-2024 14:23-0400 Heart rate 65 /min Dr. Kwabena Menjivar MD Work Phone: 8(724)458-062089 [place] [address] 04-27-2024 14:23-0400 Respiratory rate 18 /min Dr. Kwabena Menjivar MD Work Phone: [facility] 04-27-2024 14:23-0400 SaO2% (BldA) [Mass fraction] 92 % Dr. Kwabena Mnejivar MD Work Phone: [facility] 04-27-2024 14:23-0400 Systolic blood pressure 126 mm[Hg] Dr. Kwabena Menjivar MD Work Phone: 4(732)239-565911 [place] [address] 04-26-2024 18:24-0400 Inhaled oxygen flow rate 3 L/min Dr. Kwabena Menjivar MD Work Phone: 9(709)098-739989 [place] [address] 04-26-2024 15:54-0400 Body height 172.[address] Kwabena Menjivar MD Work Phone: 5(331)057-585289 [place] [address] 04-26-2024 15:54-0400 Body mass index (BMI) [Ratio] 25.3 kg/m2 Dr. Kwabena Menjivar MD Work Phone: 9(675)202-057289 [place] [address] 04-26-2024 15:54-0400 Body weight 75.[address] Kwabena Menjivar MD Work Phone: 6(137)185-390889 [place] [address] 04-19-2024 13:05-0400 Body temperature 97.8 [degF] Dr. Kwabena Menjivar MD Work Phone: 7(622)006-603589 [place] [address] 04-19-2024 13:05-0400 Diastolic blood pressure 75 mm[Hg] Dr. Kwabena Menjivar MD Work Phone: 7(252)610-904911 [place] [address] 04-19-2024 13:05-0400 Heart rate 65 /min Dr. Kwabena Menjivar MD Work Phone: 4(912)767-569711 [place] [address] 04-19-2024 13:05-0400 Respiratory rate 16 /min Dr. Kwabena Menjivar MD Work Phone: 2(886)216-979211 [place] [address] 04-19-2024 13:05-0400 SaO2% (BldA) [Mass fraction] 99 % Dr. Kwabena Menjivar MD Work Phone: 2(637)107-131511 [place] [address] 04-19-2024 13:05-0400 Systolic blood pressure 133 mm[Hg] Dr. Kwabena Menjivar MD Work Phone: [facility] 04-19-2024 10:47-0400 Body height 172.[address] Kwabena Menjivar MD Work Phone: 1(072)564-248311 [place] [address] 04-19-2024 10:47-0400 Body mass index (BMI) [Ratio] 23.9 kg/m2 Dr. Kwabena Menjivar MD Work Phone: 2(133)015-128111 [place] [address] 04-19-2024 10:47-0400 Body weight 71.[address] Kwabena Menjivar MD Work Phone: 9(008)660-203589 [place] [address] 02-26-2024 12:31-0500 Body temperature 98.6 [degF] Dr. Kwabena Menjivar MD Work Phone: 3(599)166-905189 [place] [address] 02-26-2024 12:31-0500 Diastolic blood pressure 85 mm[Hg] Dr. Kwabena Menjivar MD Work Phone: 8(490)741-462811 [place] [address] 02-26-2024 12:31-0500 Heart rate 62 /min Dr. Kwabena Menjivar MD Work Phone: 7(983)724-885589 [place] [address] 02-26-2024 12:31-0500 Respiratory rate 16 /min Dr. Kwabena Menjivar MD Work Phone: [phone] [address] 02-26-2024 12:31-0500 SaO2% (BldA) [Mass fraction] 99 % Dr. Kwabena Menjivar MD Work Phone: [facility] 02-26-2024 12:31-0500 Systolic blood pressure 164 mm[Hg] Dr. Kwabena Menjivar MD Work Phone: [phone] [address] 02-26-2024 09:48-0500 Body mass index (BMI) [Ratio] 25.8 kg/m2 Dr. Kwabena Menjivar MD Work Phone: [phone] [place] [address] 02-26-2024 09:48-0500 Body weight 77.[address] Kwabena Menjivar MD Work Phone: [facility] Encounters Encounter Date Encounter Type Care Provider Facility Start: 08-03-2024 End: 08-03-2024 Dr. David Granados MD -[facility] Start: 08-03-2024 End: 08-03-[address] Kwabena Menjivar MD Work Phone: [facility] Work Phone: Start: 07-20-2024 End: 07-20-[address] Kwabena Menjivar MD Work Phone: [facility] Work Phone: Start: 07-20-2024 End: 07-20-2024 Dr. Kwabena Menjivar MD -[facility] Start: 07-20-2024 End: 07-20-2024 ambulatory Kwabena Menjivar Facility:[facility] Start: 07-11-2024 ambulatory Kwabena Fuller lity:[facility] Start: 07-11-2024 Keven Nuno Start: 07-04-2024 ambulatory Kwabena Fuller lity:[facility] Start: 07-04-2024 Keven Grayson - Ya[facility] Start: 06-27-2024 ambulatory Sonia Hickman ty:[facility] Start: 06-26-2024 ambulatory Kwabena Fuller lity:[facility] Start: 06-26-2024 Keven Nuno Start: 06-19-2024 ambulatory Kwabena Kuhni lity:[facility] Start: 06-19-2024 Keven Nuno Start: 06-12-2024 ambulatory Keven KIRKPATRICK Fa cility:[facility] Start: 06-12-2024 Keven Nuno Start: 06-05-2024 ambulatory Keven Etienne OLS Fa cility:[facility] Start: 06-05-2024 Keven Montana Renuka Nuno Start: 06-01-2024 End: 06-01-2024 Dr. Ciro Diego MD -[facility] Work Phone: Start: 06-01-2024 End: 06-01-2024 ambulatory Ciro Diego Facility:[facility] Start: 05-30-2024 End: 05-30-[address] Kwabena Menjivar MD Work Phone: [facility] Work Phone: Start: 05-30-2024 End: 05-30-2024 Angelika LAUREN -[facility] Work Phone: Start: 05-29-2024 ambulatory Keven KIRKPATRICK Fa cility:[facility] Start: 05-29-2024 Registered Referred Keven MontanaRenuka Nuno Start: 05-29-2024 Keven Montana Renuka Nuno Start: 05-25-2024 End: 05-25-2024 Patient encounter procedure Sonia LAUREN -Radiology, [facility] Work Phone: Start: 05-25-2024 End: 05-25-[address] Kwabena Menjivar MD Work Phone: [facility] Work Phone: Start: 05-25-2024 End: 05-25-2024 Sonia LAUREN -Radiology [facility] Work Phone: Start: 05-25-2024 End: 05-25-2024 Patient encounter procedure Sonia LAUREN -[facility] Work Phone: Start: 05-25-2024 End: 05-25-2024 Sonia LAUREN -[facility] Work Phone: Start: 05-25-2024 End: 05-25-2024 ambulatory Sonia Isbell Facility:[facility] Start: 05-25-2024 End: 05-25-2024 ambulatory Sonia Isbell Facility:[facility] Start: 05-23-2024 End: 05-23-[address] Kwabena Menjivar MD Work Phone: [facility] Work Phone: Start: 05-23-2024 End: 05-23-2024 Dr. Keven Etienne MD -[facility] Work Phone: Start: 05-22-2024 End: 05-22-[address] Kwabena Menjivar MD Work Phone: [facility] Work Phone: Start: 05-22-2024 Registered Referred Keven Etienne MD -[facility] Yaakov Start: 05-22-2024 End: 05-22-2024 Keven Etienne MD -[facility] Yaakov Start: 05-11-2024 Non-patient / Non-visit Dr. Ciro Diego MD -[facility] Start: 05-11-2024 Dr. Ciro Diego MD [facility] Start: 05-09-2024 Non-patient / Non-visit Dr. Corazon Wright [facility] Work Phone: Start: 05-09-2024 Dr. Corazon Wright [facility] Work Phone: Start: 05-08-2024 Non-patient / Non-visit Dr. Corazon Wright [facility] Work Phone: Start: 05-08-2024 Dr. Corazon Wright [facility] Work Phone: Start: 05-05-2024 Non-patient / Non-visit Dr. Corazon Wright [facility] Work Phone: Start: 05-05-2024 Dr. Corazon Wright [facility] Work Phone: Start: 05-03-2024 Non-patient / Non-visit Dr. Corazon Wright [facility] Work Phone: Start: 05-03-2024 Dr. Corazon Wright [facility] Work Phone: Start: 05-02-2024 Non-patient / Non-visit Dr. Corazon Wright [facility] Work Phone: Start: 05-02-2024 Dr. Corazon Wright [facility] Work Phone: Start: 05-01-2024 Non-patient / Non-visit Dr. Corazon Wright [facility] Work Phone: Start: 05-01-2024 Dr. Corazon Wright [facility] Work Phone: Start: 04-30-2024 End: 04-30-2024 ambulatory [facility] Facility:[facility] Start: 04-30-2024 End: 04-30-2024 Non-patient / Non-visit Dr. David Granados [facility] Work Phone: Start: 04-30-2024 End: 04-30-2024 Dr. David Granados [facility] Work Phone: Start: 04-28-2024 Non-patient / Non-visit Dr. Corazon Wrgiht [facility] Work Phone: Start: 04-28-2024 Dr. Corazon Wright [facility] Work Phone: Start: 04-27-2024 Non-patient / Non-visit Awa RIVERA Start: 04-27-2024 Awa Courtney Start: 04-27-2024 ambulatory Corazon Wright Facility:[facility] Start: 04-27-2024 End: 05-20-2024 Evaluation and management of inpatient Dr. Corazon Wright [facility] Work Phone: Start: 04-27-2024 End: 05-20-2024 Dr. Corazon Wright DO -[facility] Work Phone: Start: 04-27-2024 Non-patient / Non-visit Dr. Harish Baxter MD [facility] Work Phone: Start: 04-27-2024 Dr. Harish Baxter MD [facility] Work Phone: Start: 04-26-2024 Non-patient / Non-visit Dr. Harish Baxter MD [facility] Work Phone: Start: 04-26-2024 Dr. Harish Baxter MD [facility] Work Phone: Start: 04-26-2024 Non-patient / [facility] Start: 04-26-2024 [facility]. [facility] Start: 04-25-2024 Non-patient / Non-visit Dr. Hairsh Baxter MD [facility] Work Phone: Start: 04-25[facility]2024 [facility] Start: 04-24-2024 Non-patient / Non-visit Dr. Harish Baxter MD [facility] Work Phone: Start: 04-24-2024 Dr. Harish Baxter MD [facility] Work Phone: Start: 04-24-2024 End: 04-24-2024 [facility] Facility:[facility] Start: 04-24-2024 End: 04-24-2024 Non-patient / Non-visit Dr. Davdi Granados MD [facility] Work Phone: Start: 04-24-2024 End: 04-24-2024 Dr. David Granados MD [facility] Work Phone: Start: 04-23-2024 Non-patient / Non-visit Dr. Keanu Alfred DO [facility] Work Phone: Start: 04-23-2024 Dr. Keanu Alfred [facility] Work Phone: Start: 04-22-2024 Non-patient / Non-visit Dr. Keanu Alfred DO [facility] Work Phone: Start: 04-22-2024 Dr. Keanu Alfred DO [facility] Work Phone: Start: 04-21-2024 Non-patient / Non-visit Dr. Ciro Diego MD -[facility] Start: 04-21-2024 Dr. Ciro Diego MD [facility] Start: 04-21-2024 [facility] Start: 04-21-2024 Non-patient / Non-visit Dr. Keanu Alfred DO [facility] Work Phone: Start: 04-21-2024 Dr. Keanu Alfred DO [facility] Work Phone: Start: 04-20-2024 ambulatory Keanu Alfred Facility:[facility] Start: 04-20-2024 End: 04-27-2024 Evaluation and management of inpatient Dr. Harish Baxter MD -[facility] Work Phone: Start: 04-20-2024 End: 04-27-2024 Dr. Harish Baxter MD -[facility] Work Phone: Start: 04-20-2024 Non-patient / Non-visit Dr. Keanu Alfred DO [facility] Work Phone: Start: 04-20-2024 Dr. Keanu Alfred DO [facility] Work Phone: Start: 04-19-2024 [facility] Start: 04-19-2024 Evaluation and management of inpatient Dr. Keanu Alfred DO -[facility] Work Phone: Start: 04-19-2024 Non-patient / Non-visit Dr. Danette Sargent MD -[facility] Start: 04-19-[address] Akhil Menjivar MD Work Phone: [facility] Work Phone: Start: 04-19-2024 Dr. Danette Sargent MD -[facility] Start: 03-08-2024 End: 03-08-[address] David Granados MD -[facility] Start: 03-08-2024 End: 03-08-2024 ambulatory Kwabena Menjivar Facility:[facility] Start: 02-26-2024 End: 02-26-2024 Emergency department patient visit Dr. Asher Flores MD -Emergency Department Work Phone: Start: 10-22-2022 End: 10-22-2022 ambulatory [facility] Work Phone: Start: 10-22-2022 End: 10-22-2022 [facility] Work [facility] Start: 10-14-2022 End: 10-14-2022 ambulatory [facility] Work Phone: Start: 10-14-2022 End: 10-14-2022 Discharged Recurring [facility]-Physical Therapy Work Phone: Start: 08-24-2022 End: 08-24-2022 ambulatory [facility] Work Phone: Start: 08-24-2022 End: 08-24-2022 Patient encounter procedure [facility] Work Phone: Start: 09-14-2016 End: 09-15-2016 Emergency department patient visit ABO CERVANTES Facility:[facility] Start: 09-12-2016 End: 09-12-2016 Emergency department patient visit JORGE L CARTER Facility:[facility] Procedures Date Procedure Procedure Detail Performing Clinician [...] Care Activity Detail Author Start: 08-17-2024 ambulatory Facility:[facility] Start: 08-03-2024 X-ray of cervical spine [facility] Start: 08-03-2024 XR Cervical spine 2 or 3 Views [facility] Start: 05-25-2024 Patient referral [facility] Work Phone: Start: 05-20-2024 Patient discharge [facility] Start: 05-15-2024 [facility] Start: 05-12-2024 [facility] Start: 05-10-2024 [facility] Start: 05-09-2024 [facility] Start: 05-09-2024 End: 05-09-2024 [facility] Start: 05-08-2024 Introduction of urinary catheter [facility] Start: 05-08-2024 Urinary bladder training [facility] Start: 05-02-2024 [facility] Start: 05-01-2024 [facility] Start: 04-29-2024 [facility] Start: 04-28-2024 Application of intermittent pneumatic compression device [facility] Start: 04-27-2024 Speech therapy assessment [facility] Start: 04-27-2024 Scheduling [facility] Start: 04-27-2024 Wound care [facility] Start: 04-27-2024 Referral to service [facility] Start: 04-27-2024 Admission procedure [facility] Start: 04-27-2024 Measuring intake and output [facility] Start: 04-27-2024 Patient referral to dietitian [facility] Start: 04-27-2024 Vital signs measurements [facility] Start: 04-27-2024 End: 04-27-2024 [facility] Start: 04-27-2024 Referral to occupational therapist [facility] Start: 04-27-2024 Catheterization of vein [facility] Start: 04-27-2024 Patient discharge [facility] Start: 04-27-2024 Speech therapy assessment [facility] Start: 04-26-2024 [facility] Start: 04-26-2024 Application of device [facility] Start: 04-26-2024 Referral to occupational therapist [facility] Start: 04-26-2024 Assessment of risk of venous thromboembolism [facility] Start: 04-26-2024 Following clinical pathway protocol [facility] Start: 04-26-2024 Introduction of urinary catheter [facility] Start: 04-26-2024 Measuring intake and output [facility] Start: 04-26-2024 Neurovascular assessment [facility] Start: 04-26-2024 Oxygen therapy [facility] Start: 04-26-2024 Patient education [facility] Start: 04-26-2024 Provision of activity privileges [facility] Start: 04-26-2024 Referral to service [facility] Start: 04-26-2024 Taking patient vital signs [facility] Start: 04-26-2024 [facility] Start: 04-24-2024 Application of intermittent pneumatic compression device [facility] Start: 04-20-2024 Admission procedure [facility] Start: 04-20-2024 Consultation [facility] Start: 04-20-2024 [facility] Start: 04-19-2024 Following clinical pathway protocol [facility] Start: 04-19-2024 Assessment of risk of venous thromboembolism [facility] Start: 04-19-2024 Consultation [facility] Start: 04-19-2024 Insertion of catheter into peripheral vein [facility] Start: 04-19-2024 Measuring intake and output [facility] Start: 04-19-2024 Providing care according to standard [facility] Start: 04-19-2024 Provision of activity privileges [facility] Start: 04-19-2024 Referral to occupational therapist [facility] Start: 04-19-2024 Referral to service [facility] Start: 04-19-2024 [facility] Start: 04-19-2024 Hospital admission, emergency, from emergency room, medical nature [facility] Start: 04-19-2024 Admission procedure [facility] Start: 04-19-2024 [facility] Start: 04-19-2024 Oxygen therapy [facility] Start: 04-19-2024 End: 04-19-2024 [facility] Start: 04-19-2024 Patient referral to dietitian [facility] Start: 04-19-2024 [facility] Start: 02-26-2024 [facility] Start: 10-22-2022 [facility] Mitotic spindle appa ratus Ab [Titer] in Serum or Plasma [facility] Neuronal nuclear Ab [Presence] in Serum by Immunofluorescence [facility] Nuclear Ab [Titer] i n Serum by Immunofluorescence [facility] Patient Education ED Contusion, Upper Extremity ED Head Injury (Adult) [facility] Work Phone: Patient referral [facility] Work Phone: Serum HEAVEN pattern [facility] Speckled nuclear Ab pattern [Titer] in Serum [facility] Troponin T.cardiac [Mass/volume] in Serum or Plasma by High sensitivity method [facility] Troponin T.cardiac [Mass/volume] in Serum or Plasma by High sensitivity method [facility] Payers Date Payer Category Payer Self-pay [id number] 2024 Private Health Insurance [id number] 2016 Medicare [id number] 2006 Medicare [id number] Unknown [id number] 2.16.8 40.1.963910.3.579.2.462 Unknown [id number] 2.16.8 40.1.222568.3.579.2.462 Unknown [id number] 2.16.8 40.1.740718.3.579.2.462 Unknown [id number] 2.16.8 40.1.560183.3.579.2.462 Unknown [id number] 2.16.8 40.1.171175.3.579.2.462 Unknown [id number] 2.16.8 40.1.750650.3.579.2.462 Unknown [id number] 2.16.8 40.1.342791.3.579.2.462 Unknown [id number] 2.16.8 40.1.994191.3.579.2.462 Unknown [id number] 2.16.8 40.1.952064.3.579.2.462 Unknown [id number] 2.16.8 40.1.491626.3.579.2.462 Unknown [id number] 2.16.8 40.1.017954.3.579.2.462 Unknown [id number] 2.16.8 40.1.168533.3.579.2.462 Unknown [id number] 2.16.8 40.1.165041.3.579.2.462 Unknown [id number] 2.16.8 40.1.093413.3.579.2.462 Unknown [id number] 2.16.8 40.1.373692.3.579.2.462 Unknown [id number] 2.16.8 40.1.546449.3.579.2.462 Unknown [id number] 2.16.8 40.1.830377.3.579.2.462 Unknown [id number] 2.16.8 40.1.323697.3.579.2.462 Unknown [id number] 2.16.8 40.1.766493.3.579.2.462 Unknown [id number] 2.16.8 40.1.039746.3.579.2.462 Unknown [id number] 2.16.8 40.1.109192.3.579.2.462 Unknown [id number] 2.16.8 40.1.925718.3.579.2.462 Unknown [id number] 2.16.8 40.1.113681.3.579.2.462 Unknown [id number] 2.16.8 40.1.508357.3.579.2.462 Unknown [id number] 2.16.8 40.1.459055.3.579.2.462 Unknown [id number] 2.16.8 40.1.113752.3.579.2.462 Unknown [id number] 2.16.8 40.1.007277.3.579.2.462 Unknown [id number] 2.16.8 40.1.300589.3.579.2.462 Unknown [id number] 2.16.8 40.1.236842.3.579.2.462 Unknown [id number] 2.16.8 40.1.977813.3.579.2.462 Unknown [id number] 2.16.8 40.1.838906.3.579.2.462 Unknown [id number] 2.16.8 40.1.117721.3.579.2.462 Unknown [id number] 2.16.8 40.1.319882.3.579.2.462 Unknown [id number] 2.16.8 40.1.828210.3.579.2.462 Unknown [id number] 2.16.8 40.1.792784.3.579.2.462 Unknown [id number] 2.16.8 40.1.636906.3.579.2.462 Unknown [id number] 2.16.8 40.1.630595.3.579.2.462 Unknown [id number] 2.16.8 40.1.367409.3.579.2.462 Unknown [id number] 2.16.8 40.1.170698.3.579.2.462 Unknown [id number] 2.16.8 40.1.901481.3.579.2.462 Unknown [id number] 2.16.8 40.1.372299.3.579.2.462 Unknown [id number] 2.16.8 40.1.495415.3.579.2.462 Unknown [id number] 2.16.8 40.1.140744.3.579.2.462 Unknown [id number] 2.16.8 40.1.557460.3.579.2.462 Unknown [id number] 2.16.8 40.1.273116.3.579.2.462 Unknown [id number] 2.16.8 40.1.333623.3.579.2.462 Unknown [id number] 2.16.8 40.1.150781.3.579.2.462 Unknown [id number] 2.16.8 40.1.769326.3.579.2.462 Unknown [id number] 2.16.8 40.1.493922.3.579.2.462 Unknown [id number] 2.16.8 40.1.252718.3.579.2.462 Unknown [id number] 2.16.8 40.1.657499.3.579.2.462 Unknown [id number] 2.16.8 40.1.719416.3.579.2.462 Social History Date Type Detail Facility Start: 03-28-2021 Tobacco smoking stat [facility] Unknown if ever smoked [facility] Start: 1940 Sex Assigned At Male [facility] Start: 04-19-2024 End: 07-27-2024 Tobacco smoking status [facility] Ex-smoker (finding) [facility] Start: 04-19-2024 End: 05-31-2024 Sex Male (finding) [facility] Medical Equipment Procedure Code Equipment Code Equipment [...] Discectomy, spine, cervical, anterior approach, with fusion [id number] FDA Start: 04-26-2024 Discectomy, spine, cervical, anterior [...] 05-20-2024 Functional status With Assist of 1 [facility] Work Phone: 05-18-2024 Functional status Chair;Bedrest [facility] Work Phone: 04-27-2024 Functional status Bedside Commode;Back to bed [facility] Work Phone: Mental Status Date Assessment Result Facility 05-20-2024 Cognitive function Voice/Name [facility] Work Phone: 04-27-2024 Cognitive function Awake;Alert;A ppropriate;Fol lows Commands [facility] Work Phone: 04-27-2024 Cognitive function Voice/Name [facility] Work Phone: 04-19-2024 Cognitive function Voice/Name [facility] Work Phone: Clinical Notes 03-19-2020 to 07-21-2024 Note Date & Type Note Facility 07-21-2024 Radiology Diagnostic study note [facility] 05-25-2024 Radiology Diagnostic study note [facility] Imaging Services [address] [place], [place] [address] Abdomen Single View MR#: [id number] Acct: [id number] Name: YAS ROSA Brigido Rep #: [id number] : 1940 M 83 From: Oren Narvaez DO PCP: Dr. Kwabena Menjivar MD Status: REG CLI Study:Abdomen Single View Date of Exam: 05/25/24 Exam# [id number] Ordering Dr: Sonia Isbell COAL GETTER-C PROCEDURE: Abdominal radiographs, two views 05/25/2024 REASON [...] developing fecal impaction. Reading Location: [facility] CC: VIKRAM-Bryce Isbell; Dr. Kwabena Menjivar MD ~ Brace Maker: Signed [facility] 05-18-2024 Discharge summary Note Date/Time May 18, 2024 9:03am [facility] Medical Records Department [address] [place] [address] Transfer to [facility] MR#: [id number] Acct: [id number] Name: YAS ROSA Rep #:[id number] : 1940 83 From: Mariano Chan MD PCP: Dr. Kwabena Menjivar MD Status :ADM IN Certification of patient admission REQUIRED AT TIME OF ADMISSION. I CERTIFY THAT POST-HOSPITAL ECF SERVICES ARE REQUIRED TO BE GIVEN ON AN IN-PATIENT BASIS BECAUSE OF THE ABOVE NAMED PATIENT'S NEED FOR GROUP HOME CARE ON A CONTINUING BASIS FOR THE CONDITION(S) FOR WHICH HE/SHE WAS RECEIVING IN-PATIENT HOSPITAL SERVICES PRIOR TO HIS/HER TRANSFER TO THE [facility]. 05/18/24 0903<Electronically signed by Mariano Chan MD> Diet Diet Order/Speech Therapy: 05/09/24 11:34 Diet: Regular - General Food consistency:: Pureed Liquid Consistency:: [place]/Mildly Thick Type of Dietary Supplement:: Magic Cup [...] Recommendations Dietitian Recommendations/Changes: Continue regular diet per ELECTION ASSISTANT consistency/recommendations. Continue 120ml EPHP 4x daily with medpass, prefers vanilla or strawberry. Adjust to vanilla magic cup with dinner. Will order vanilla fortified pudding with breakfast and lunch. Will monitor weight trends. 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 ELECTION ASSISTANT informally assessed pt vocal quality through the [...] sustained manner appropriately despite max cues from ELECTION ASSISTANT. Pt. would often substitute /sh/ for /s/. Maximum Phonation of /ah/ -Sustained /ah/: average of 10.73 seconds IMPAIRED Findings indicate poor breath support and glottis sufficiency. Discharge Plan Admission Admit Date/Time: 04/27/24 15:15 Primary Reason for Your Visit: Debility. Attending Provider: Corazon Wright Primary Care Provider: Kwabena Menjivar Instructions Additional Instructions / Restrictions: Discharge to [facility] 05/20/2024, skilled. Discharge Orders/Prescriptions Prescriptions: New [...] 0RF bisacodyl 10 mg Suppository 10 mg IN X1 PRN (Reason: Constipation) Qty: 0 0RF [...] in before D/C Order can be placed): [facility] Facility (4) Dysphagia Qualifiers: Dysphagia type: pharyngeal phase Qualified Code(s): R13.13 - Dysphagia, pharyngeal phase 05/18/24 0903 <Electronically signed by Mariano Chan MD> Cosigner Signature (if applicable): CC: Dr. Kwabena Menjivar MD ~ [facility] Work Phone: 1(332) 615-220404-10-2025 Discharge summary Author [facility] Note Date/Time May 18, 2024 9:0 2am [facility] Medical Records Department [address] [place] [address] Discharge Summary 05/18/24 0852 MR#: [id number] Acct: [id number] Name: YAS ROSA Rep #:[id number] : 1940 83 From: Mariano Chan MD PCP: Dr. Kwabena Menjivar MD Status :ADM IN Location: [place] [address] Providers Date of Admission: 04/27/24 Primary Care [...] Pain 1-10 Or Fever >100.7 #0 tabs 05/18/ benzocaine 15 mg-menthol 3.6 mg lozenges (Sore Throat (benzocaine with menthol))1 juliet mucous membrane Q2H PRN PRN SORE THROAT #0 ea 05/18/24 bisacodyl 10 mg rectal suppository 10 mg IN X1 PRN Constipation #0 ea 05/18/24 carboxymethylcellulose [...] C-collar over the next week. Discharge to [facility] 05/20/2024, skilled. Physical Exam Const alert [...] Discharge instructions: No Additional Instructions: Discharge to [facility] 05/20/2024, skilled. Meaningful Use Info Meaningful [...] Attending Provider: Corazon Wright Primary Care Provider: Ranney,Christopher Instructions Additional Instructions / Restrictions: [facility] [facility]. Discharge Orders/Prescriptions Prescriptions: New [...] 0RF bisacodyl 10 mg Suppository 10 mg IN X1 PRN (Reason: Constipation) Qty: 0 0RF [...] in before D/C Order can be placed): [facility] 05/18/24 0902 <Electronically signed by Mariano Chan MD> Cosigner Signature (if applicable): CC: Dr. Kwabena Menjivar MD; Dr. Mariano Chan MD~ Signed [facility] Work Phone: 1(560) 804-460604-10-2025 Discharge summary [facility] Medical Records Department [address] [place] [address] Transfer to Extended Care MR#: [id number] Acct: [id number] Name: YAS ROSA Rep #:[id number] : 1940 83 From: Mariano Chan MD PCP: Dr. Kwabena Menjivar MD Status :ADM IN Certification of patient admission REQUIRED AT TIME OF ADMISSION. I CERTIFY THAT POST-HOSPITAL ECF SERVICES ARE REQUIRED TO BE GIVEN ON AN IN-PATIENT BASIS BECAUSE OF THE ABOVE NAMED PATIENT'S NEED FOR GROUP HOME CARE ON A CONTINUING BASIS FOR THE CONDITION(S) FOR WHICH HE/SHE WAS RECEIVING IN-PATIENT HOSPITAL SERVICES PRIOR TO HIS/HER TRANSFER TO THE ECF. 05/18/24 0903 Diet Diet Order/Speech Therapy: 05/09/24 11:34 Diet: Regular - General Food consistency:: Pureed Liquid Consistency:: [place]/Mildly Thick Type of Dietary Supplement:: Magic Cup [...] Recommendations Dietitian Recommendations/Changes: Continue regular diet per ELECTION ASSISTANT consistency/recommendations. Continue 120ml EPHP 4x daily with medpass, prefers vanilla or strawberry. Adjust to vanilla magic cup with dinner. Will order vanilla fortified pudding with breakfast and lunch. Will monitor weight trends. 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 ELECTION ASSISTANT informally assessed pt vocal quality through the [...] sustained manner appropriately despite max cues from ELECTION ASSISTANT. Pt. would often substitute /sh/ for /s/. Maximum Phonation of /ah/ -Sustained /ah/: average of 10.73 seconds IMPAIRED Findings indicate poor breath support and glottis sufficiency. Discharge Plan Admission Admit Date/Time: 04/27/24 15:15 Primary Reason for Your Visit: Debility. Attending Provider: Corazon Wright Primary Care Provider: Kwabena Menjivar Instructions Additional Instructions / Restrictions: Discharge to [facility] 05/20/2024, skilled. Discharge Orders/Prescriptions Prescriptions: New [...] 0RF bisacodyl 10 mg Suppository 10 mg IN X1 PRN (Reason: Constipation) Qty: 0 0RF [...] in before D/C Order can be placed): [facility] (4) Dysphagia Qualifiers: Dysphagia type: pharyngeal phase Qualified Code(s): R13.13 - Dysphagia, pharyngeal phase 05/18/24 0903 Cosigner Signature (if applicable): CC: Dr. Kwabena Menjivar MD ~ [facility]04-10-2025 Discharge summary [facility] Medical Records Department [address] [place] [address] Discharge Summary 05/18/24 0852 MR#: [id number] Acct: [id number] Name: YAS ROSA Rep #:[id number] : 1940 83 From: Mariano Chan MD PCP: Dr. Kwabena Menjivar MD Status :ADM IN Location: [place] [address] Providers Date of Admission: 04/27/24 Primary Care [...] mg lozenges (Sore Throat (benzocaine with menthol))1 jluiet mucous membrane Q2H PRN PRN SORE THROAT #0 ea 05/18/24 bisacodyl 10 mg rectal suppository 10 mg IN X1 PRN Constipation #0 ea 05/18/24 carboxymethylcellulose [...] C-collar over the next week. Discharge to [facility] 05/20/2024, skilled. Physical Exam Const alert [...] Discharge instructions: No Additional Instructions: Discharge to [facility] 05/20/2024, skilled. Meaningful Use Info Meaningful [...] Instructions Additional Instructions / Restrictions: Discharge to [facility] 05/20/2024, skilled. Discharge Orders/Prescriptions Prescriptions: New [...] 0RF bisacodyl 10 mg Suppository 10 mg IN X1 PRN (Reason: Constipation) Qty: 0 0RF [...] in before D/C Order can be placed): [facility] 05/18/24 0902 Cosigner Signature (if applicable): CC: Dr. Kwabena Menjivar MD; Dr. Mariano Chan MD~ Signed [facility]04-10-20[facility] Progress note Author Mariano Dustin [facility] Note Date/Time May 17, 2024 8:15 am [facility] Medical Records Department [address] [place] [address] Progress Note - Rehab 05/17/24812 MR#: [id number] Acct: [id number] Name: YAS ROSA Rep #:[id number] : 1940 83 From: Mariano Chan MD PCP: Dr. Kwabena Menjivar MD Status :ADM IN Location: [place] [address] Subjective Subjective Patient seen, examined. He is [...] Cosigner Signature (if applicable): CC: ~ Signed [facility] Work Phone: 1(439) 693-335504-09-2025 Progress note [facility] Medical Records Department [address] [place] [address] Progress Note - Rehab 05/17/24812 MR#: [id number] Acct: [id number] Name: YAS ROSA Rep #:[id number] : 1940 83 From: Mariano Chan MD PCP: Dr. Kwabena Menjivar MD Status :ADM IN Location: [address] Subjective Subjective Patient seen, examined. He is [...] Cosigner Signature (if applicable): CC: ~ Signed [facility]04-08-2025 Progress note Author Mariano Chan [facility] Note Date/Time May 16, 2024 8:25 am [facility] Medical Records Department [address] [place] [address] Progress Note - Rehab 05/16/24820 MR#: [id number] Acct: [id number] Name: YAS ROSA Rep #:[id number] : 1940 83 From: Mariano Chan MD PCP: Dr. Kwabena Menjivar MD Status :ADM IN Location: [place] [address] Subjective Subjective Patient seen, examined. Elayne from OT present. Milan is out of c-collar for breakfast. He was able to walk to the bathroom today instead of using wheelchair, plan is discharge to [facility] in 4 days. Objective Data Objective Data [...] Cosigner Signature (if applicable): CC: ~ Signed [facility] Work Phone: 1(852) 597-280304-08-2025 Progress note [facility] Medical Records Department [address] [place] [address] Progress Note - Rehab 05/16/24820 MR#: [id number] Acct: [id number] Name: YAS ROSA Rep #:[id number] : 1940 83 From: Mariano Chan MD PCP: Dr. Kwabena Menjivar MD Status :ADM IN Location: [place] [address] Subjective Subjective Patient seen, examined. Elayne from OT present. Milna is out of c-collar for breakfast. He was able towalk to the bathroom today instead of using wheelchair, plan is discharge to [facility] in 4 days. Objective Data Objective Data [...] * GERD - Pantoprazole 40mg bid. 05/16/24824 Cosigner Signature (if applicable): CC: ~ Signed [facility]04-07-2025 Progress note Author Mariano Chan [facility] Note Date/Time May 15, 2024 7:49 am [facility] Medical Records Department [address] [place] [address] Progress Note - Rehab 05/15/24746 MR#: [id number] Acct: [id number] Name: YAS ROSA Rep #:[id number] : 1940 83 From: Mariano Chan MD PCP: Dr. Kwabena Menjivar MD Status :ADM IN Location: [place] [address] Subjective Subjective Patient seen, examined. He told [...] Cosigner Signature (if applicable): CC: ~ Signed [facility] Work Phone: 1(253) 448-295304-07-2025 Progress note [facility] Medical Records Department [address] [place] [address] Progress Note - Rehab 05/15/2447 MR#: [id number] Acct: [id number] Name: YAS ROSA Rep #:[id number] : 1940 83 From: Mariano Chan MD PCP: Dr. Kwabena Menjivar MD Status :ADM IN Location: [place] [address] Subjective Subjective Patient seen, examined. He told [...] Cosigner Signature (if applicable): CC: ~ Signed [facility]04-04-2025 Progress note Author Mariano Chan [facility] Note Date/Time May 12, 2024 8:08 am [facility] Medical Records Department [address] [place] [address] Progress Note - Rehab 05/12/24801 MR#: [id number] Acct: [id number] Name: YAS ROSA Rep #:[id number] : 1940 83 From: Mariano Chan MD PCP: Dr. Kwabena Menjivar MD Status :ADM IN Location: [place] [address] Subjective Subjective Patient seen, examined. Dr. Diego [...] Catheter Urine Culture - Preliminary GNR lactose hide paster 04/27/24 22:05 Urine Catheter - Catheter Urine [...] culture growing 50,000 to 80,000 gnr lactose hide paster, Cipro 250mg bid x 7 days. * Nutrition - Ensure Plus 120mL 4x/day. * Neuropathic pain - Gabapentin 100mg bidcm. * Skin irritation - Calmoseptine topical bid. * Orthostatic hypotension - Midodrine 10mg tid. * Depression/Insomnia/appetite loss - Mirtazapine 15mg qhs. * GERD - Pantoprazole 40mg bid. 05/12/24807 <Electronically signed by Mariano Chan MD> Cosigner Signature (if applicable): CC: ~ Signed [facility] Work Phone: 1(358) 461-734204-04-2025 Progress note [facility] Medical Records Department [address] [place] [address] Progress Note - Rehab 05/12/24801 MR#: [id number] Acct: [id number] Name: YAS ROSA Rep #:[id number] : 1940 83 From: Mariano Chan MD PCP: Dr. Kwabena Menjivar MD Status :ADM IN Location: [place] [address] Subjective Subjective Patient seen, examined. Dr. Diego [...] Catheter Urine Culture - Preliminary GNR lactose hide paster 04/27/24 22:05 Urine Catheter - Catheter Urine [...] culture growing 50,000 to 80,000 gnr lactose hide paster, Cipro 250mg bid x 7 days. * Nutrition - Ensure Plus 120mL 4x/day. * Neuropathic pain - Gabapentin 100mg bidcm. * Skin irritation - Calmoseptine topical bid. * Orthostatic hypotension - Midodrine 10mg tid. * Depression/Insomnia/appetite loss - Mirtazapine 15mg qhs. * GERD - Pantoprazole 40mg bid. 05/12/24 0808 Cosigner Signature (if applicable): CC: ~ Signed [facility]04-03-2025 Progress note Author Ciro Diego [facility] Note Date/Time May 11, 2024 2:35 pm [facility] Medical Records Department [address] [place] [address] Progress Note - Orthopedic 05/11/24 1426 MR#: [id number] Acct: [id number] Name: MOEYAS Brigido Rep #:[id number] : 1940 83 From: Ciro Diego MD PCP: Dr. Kwabena Menjivar MD Status :ADM IN Location: [place] [address]1 Subjective Subjective Saw patient in [facility] today as a 2-week follow-up. [...] Catheter Urine Culture - Preliminary GNR lactose hide paster 04/27/24 22:05 Urine Catheter - Catheter Urine Culture - Final Culture exhibits no growth. 04/29/24 22:20 Stool Stool Occult Blood (JERMAINE) - Final Radiography Diagnostic Testing: Radiology Impression Cervical Spine X-Ray 05/10/24 15:00 IMPRESSION: Stable ACDF hardware. No acute fracture or traumatic listhesis. Reading Location: [facility] Physical Exam Narrative Examination the neck [...] Cosigner Signature (if applicable): CC: ~ Signed [facility] Work Phone: 1(291) 792-752204-03-2025 Progress note [facility] Medical Records Department [address] [place] [address] Progress Note - Orthopedic 05/11/24 1426 MR#: [id number] Acct: [id number] Name: YAS ROSA Rep #:[id number] : 1940 83 From: Ciro Diego MD PCP: Dr. Kwabena Menjivar MD Status :ADM IN Location: [place] [address]1 Subjective Subjective Saw patient in [facility] today as a 2-week follow-up. [...] Catheter Urine Culture - Preliminary GNR lactose hide paster 04/27/24 22:05 Urine Catheter - Catheter Urine Culture - Final Culture exhibits no growth. 04/29/24 22:20 Stool Stool Occult Blood (JERMAINE) - Final Radiography Diagnostic Testing: Radiology Impression Cervical Spine X-Ray 05/10/24 15:00 IMPRESSION: Stable ACDF hardware. No acute fracture or traumatic listhesis. Reading Location: [facility] Physical Exam Narrative Examination the neck [...] Cosigner Signature (if applicable): CC: ~ Signed [facility]04-02-2025 Progress note Author Mariano Chan [facility] Note Date/Time May 10, 2024 5:41 pm [facility] Medical Records Department [address] [place] [address] Progress Note - Rehab 05/10/24 1731 MR#: [id number] Acct: [id number] Name: YAS ROSA Rep #:[id number] : 1940 83 From: Mariano Chan MD PCP: Dr. Kwabena Menjivar MD Status :ADM IN Location: [place] [address] Subjective Subjective Patient seen, examined. He seems [...] Sl. Cloudy, Urine pH 6.0, Ur Specific [place] 1.015, Urine Protein 500 H, Urine Glucose [...] acute fracture or traumatic listhesis. Reading Location: [facility] Indicators for Scoring Admitted with or [...] Cosigner Signature (if applicable): CC: ~ Signed [facility] Work Phone: 1(504) 844-141304-02-2025 Progress note [facility] Medical Records Department [address] [place] [address] Progress Note - Rehab 05/10/24 1731 MR#: [id number] Acct: [id number] Name: YAS ROSA Brigido Rep #:[id number] : 1940 83 From: Mariano Chan MD PCP: Dr. Kwabena Mejnivar MD Status :ADM IN Location: [place] [address]1 Subjective Subjective Patient seen, examined. He seems [...] Sl. Cloudy, Urine pH 6.0, Ur Specific [place] 1.015, Urine Protein 500 H, Urine Glucose [...] acute fracture or traumatic listhesis. Reading Location: [facility] Indicators for Scoring Admitted with or [...] * GERD - Pantoprazole 40mg bid. 05/10/24 1748 Cosigner Signature (if applicable): CC: ~ Signed [facility]04-02-2025 Radiology Diagnostic study note [facility] Imaging Services [address] [place] [address] Cerv Spine 2 or 3 Views MR#: [id number] Acct: [id number] Name: YAS ROSA Rep #: [id number] : 1940 M 83 From: Lisa Bailey MD PCP: Dr. Kwabena Menjivar MD Status: ADM IN Study:Cerv Spine 2 or 3 Views Date of Exam: 05/10/24 Exam# [id number] Ordering Dr: Sherwin Clark PROCEDURE: CERV SPINE [...] acute fracture or traumatic listhesis. Reading Location: [facility] CC: COAL GETTER-C Beronica Clark; Dr. Kwabena Menjivar MD ~ Brace Maker: Signed [facility]04-01-2025 Progress note Author Corazon Wright [facility] Note Date/Time May 09, 2024 12:5 2pm [facility] Medical Records Department [address] [place] [address] Progress Note 05/09/24 1035 MR#: [id number] Acct: [id number] Name: YAS ROSA Rep #:[id number] : 1940 83 From: Corazon Wright DO PCP: Dr. Kwabena Menjivar MD Status :ADM IN Location: [facility]-7 Subjective Subjective Afebrile VSS -blood pressure this [...] maintain good fluid intake. He can have [place] water. Objective Data Objective Data Vital Signs: [...] but, no erythema of the anterior neck. [place] J collar is in place. Psych Psych [...] esophageal dysmotility. Charges/Coding Visit Charges Inpatient E&M: 90790 Subs Hosp L1 05/09/24 1252 <Electronically signed by Corazon Wright DO> Corazon Wright DO Cosign Signature (if applicable): CC: ~ Signed [facility] Work Phone: 1(309) 777-880404-01-2025 Procedure note [facility] Speech Pathology [address] [place] [address] Modified Barium Swallow Study MR#: [id number] Acct: [id number] Name: YAS ROSA Brigido Rep #:[id number] : 1940 83 From: Lalita jacobson M.A. [facility]-ELECTION ASSISTANT Modified Barium Swallow Patient Information Study Date: 05/09/24 Study Time: 10:00 Direct Billable Minutes: 120 Total Minutes procedure & reportin Diagnosis: Pharyngeal dysphagia Referring Physician: Corazon Wright Medical History: The patient presented to [facility] ED 04/19/2024 after a fall at [...] Result: 8= enters airway/below vocal folds/no effort [place] Thick Liquid via teaspoon: Result: 2= enter airway/above vocal folds/ejected [place] Thick Liquid via small single sip: cup: [...] 3: Result: 2= enter airway/above vocal folds/ejected [place] Thick Liquid via single sip: straw: Result: 1= does not enter airway [place] Thick Liquid via single sip: straw Trial [...] Status Active ST Patient: Active Contact Information [facility] Speech Therapy:: Lalita Grande M.A. ELECTION ASSISTANT Speech-Language Pathologist [address] [place] [address] [email or web address] [phone] 05/09/24 1253 marti Daigle CCC-ELECTION ASSISTANT> Date/Time Lalita Grande M.A., CCC-ELECTION ASSISTANT Co-Signature Required for all Medicare patients Date/Time Co-Signature CC: ~ [facility]04-01-2025 Progress note [facility] Medical Records Department [address] [place] [address] Progress Note 05/09/24 1035 MR#: [id number] Acct: [id number] Name: YAS ROSA Rep #:[id number] : 1940 83 From: Corazon Wright DO PCP: Dr. Kwabena Menjivar MD Status :ADM IN Location: [place] [address] Subjective Subjective Afebrile VSS -blood pressure this [...] but, no erythema of the anterior neck. [place] J collar is in place. Psych Psych [...] esophageal dysmotility. Charges/Coding Visit Charges Inpatient E&M: 15134 [facility] Hosp L1 05/09/24 1252 Corazon Wright DO Cosigner Signature (if applicable): CC: ~ Signed [facility]03-31-2025 Progress note Author Corazon Demetriusgavin [facility] Note Date/Time May 08, 2024 2:3 8pm [facility] Medical Records Department [address] [place] [address] Progress Note 05/08/24 0956 MR#: [id number] Acct: [id number] Name: YAS ROSA Rep #:[id number] : 1940 83 From: Corazon Wright DO PCP: Dr. Kwabena Menjivar MD Status :ADM IN Location: [place] [address] Subjective Subjective Milan was seen on team [...] choose from. Charges/Coding Visit Charges Inpatient E&M: 99856 Subs Hosp L2 05/08/24 1438 <Electronically signed by Corazon Wright DO> Corazon Wright DO Cosigner Signature (if applicable): CC: ~ Signed [facility] Work Phone: 1(896) 334-831203-31-2025 Progress note [facility] Medical Records Department [address] [place] [address] Progress Note 05/08/24 0956 MR#: [id number] Acct: [id number] Name: YAS ROSA Brigido Rep #:[id number] : 1940 83 From: Corazon Wright PCP: Dr. Kwabena Menjivar MD Status :ADM IN Location: [id number] Subjective Subjective Milan was seen on team [...] choose from. Charges/Coding Visit Charges Inpatient E&M: 78317 Subs Hosp L2 05/08/24 1438 Corazon Wright DO Cosigner Signature (if applicable): CC: ~ Signed [facility]03-28-2025 Progress note Author Corazon Demetriusgavin [facility] Note Date/Time May 05, 2024 1:2 0pm [facility] Medical Records Department [address] [place] [address] Progress Note 05/05/24 1103 MR#: [id number] Acct: [id number] Name: YAS ROSA Rep #:[id number] : 1940 83 From: Corazon Wright DO PCP: Dr. Kwabena Menjivar MD Status :ADM IN Location: [place] [address] Subjective Subjective Afebrile Heart rate continues to [...] need to go [facility] from [facility]. 5. Needs to follow up with psychiatry for meds and psychotherapy. Charges/Coding Visit Charges Inpatient E&M: 92229 Subs Hosp L1 05/05/24 1320 <Electronically signed by Corazon Wright DO> Corazon Wright DO Cosigner Signature (if applicable): CC: ~ Signed [facility] Work Phone: 1(888) 307-345503-28-2025 Progress note [facility] Medical Records Department [address] [place] [address] Progress Note 05/05/24 1103 MR#: [id number] Acct: [id number] Name: YAS ROSA Rep #:[id number] : 1940 83 From: Corazon Wright DO PCP: Dr. Kwabena Menjivar MD Status :ADM IN Location: [place] [address] Subjective Subjective Afebrile Heart rate continues to [...] need to go to a facility [facility]. 5. Needs to follow up with psychiatry for meds and psychotherapy. Charges/Coding Visit Charges Inpatient E&M: 06162 [facility] Hosp L1 05/05/24 1320 Corazon Wright DO Cosigner Signature (if applicable): CC: ~ Signed [facility]03-26-2025 Progress note Author [facility]on [facility] Note Date/Time May 03, 2024 1:2 7pm [facility] Medical Records Department [address] [place] [address] Progress Note 05/03/24 1227 MR#: [id number] Acct: [id number] Name: YAS ROSA Rep #:[id number] : 1940 83 From: Corazon Wright DO PCP: Dr. Kwabena Menjivar MD Status :ADM IN Location: [place] [address]1 Subjective Subjective Afebrile VSS -blood pressure over [...] the AM. Charges/Coding Visit Charges Inpatient E&M: 83193 Subs Hosp L1 05/03/24 1327 <Electronically signed by Corazon Wright DO> Corazon Wright DO Cosigner Signature (if applicable): CC: ~ Signed [facility] Work Phone: 1(319) 172-594203-26-2025 Progress note [facility] Medical Records Department [address] [place] [address] Progress Note 05/03/24 1227 MR#: [id number] Acct: [id number] Name: YAS ROSA Rep #:[id number] : 1940 83 From: Corazon Wright DO PCP: Dr. Kwabena Menjivar MD Status :ADM IN Location: [place] [address]1 Subjective Subjective Afebrile VSS -blood pressure over [...] the AM. Charges/Coding Visit Charges Inpatient E&M: 78471 [facility] Hosp L1 05/03/24 1327 Corazon Wright DO Cosigner Signature (if applicable): CC: ~ Signed [facility]03-25-2025 Progress note Author Corazon Wright [facility] Note Date/Time May 02, 2024 4:5 7pm [facility] Medical Records Department [address] [place] [address] Progress Note 05/02/24 1236 MR#: [id number] Acct: [id number] Name: YAS ROSA Rep #:[id number] : 1940 83 From: Corazon Wright DO PCP: Dr. Kwabena Menjivar MD Status :ADM IN Location: [place] [address] Subjective Subjective Afebrile VSS -blood pressure over [...] took 3 staff to walk him at [facility] to [place] assist Medication list reviewed. Has not taken [...] 3 days Charges/Coding Visit Charges Inpatient E&M: 62339 Subs Hosp L1 05/02/24 1657 <Electronically signed by Corazon Wright DO> Corazon Wright DO Cosigner Signature (if applicable): CC: ~ Signed [facility] Work Phone: 1(333) 621-820903-25-2025 Progress note [facility] Medical Records Department [address] [place] [address] Progress Note 05/02/24 1236 MR#: [id number] Acct: [id number] Name: YAS ROSA Rep #:[id number] : 1940 83 From: Corazon Wright DO PCP: Dr. Kwabena Mnejivar MD Status :ADM IN Location: [place] [address] Subjective Subjective Afebrile VSS -blood pressure over [...] took 3 staff to walk him at [facility] to [facility] assist Medication list reviewed. Has not taken [...] 3 days Charges/Coding Visit Charges Inpatient E&M: 38219 Subs Hosp L1 05/02/24 1657 Corazon Wright DO Cosigner Signature (if applicable): CC: ~ Signed [facility]03-25-2025 Progress note Author Corazon Wright [facility] Note Date/Time May 02, 2024 2:1 3pm [facility] Medical Records Department [address] [place] [address] Progress Note 05/01/24 1234 MR#: [id number] Acct: [id number] Name: YAS ROSA Rep #:[id number] : 1940 83 From: Corazon Wright DO PCP: Dr. Kwabena Menjivar MD Status :ADM IN Location: [place] [address]1 Subjective Subjective Milan was seen on team [...] continue IVF's. Charges/Coding Visit Charges Inpatient E&M: 99332 Subs Hosp L2 05/02/24 1413 <Electronically signed by Corazon Wright DO> Corazon Wright DO Cosigner Signature (if applicable): CC: ~ Signed [facility] Work Phone: 1(570) 567-684703-25-2025 Progress note [facility] Medical Records Department [address] [place] [address] Progress Note 05/01/24 1234 MR#: [id number] Acct: [id number] Name: YAS ROSA Rep #:[id number] : 1940 83 From: Corazon Wright DO PCP: Dr. Kwabena Menjivar MD Status :ADM IN Location: [place] [address]1 Subjective Subjective Milan was seen on team [...] L, MPV 8.6, Sodium 141, Potassium 4.5, [id number] H, Carbon Dioxide 23.7, Anion Gap 8, [...] continue IVF's. Charges/Coding Visit Charges Inpatient E&M: 10692 Subs Hosp L2 05/02/24 1413 Corazon Wright DO Cosigner Signature (if applicable): CC: ~ Signed [facility]03-21-2025 History and physical note Author Corazon [facility] Note Date/Time April 28, 2024 3:3 5pm [facility] Medical Records Department [address] [place] [address] Post Admission Physician Eval 04/28/24 1241 MR#: [id number] Acct: [id number] Name: YAS ROSA Rep #:[id number] : 1940 83 From: Corazon Wright DO PCP: Dr. Kwabena Menjivar MD Status :ADM IN Location: [place] [address] Admission Information Primary Diagnosis:: DEBILITY DUE TO [...] Skin integrity and Medication Management Patient needs Tech Brazer Tester/ Case Management for: Discharge Planning, Arranging Home [...] TBD Was Preadmission Assessment Accurate?: Yes 04/28/24 7578 <Electronically signed by Corazon Wright DO> Cosigner Signature (if applicable): CC: ~ Signed [facility] Work Phone: 1(867) 102-867703-21-2025 History and physical note Author [facility] Note Date/Time April 28, 2024 3:2 4pm [facility] Medical Records Department [address] [place] [address] History & Physical Exam 04/28/24 1015 MR#: [id number] Acct: [id number] Name: YAS ROSA Rep #:[id number] : 1940 83 From: Corazon Wright DO PCP: Dr. Kwabena Menjivar MD Status :ADM IN Location: [id number] [facility] - General General Date of Admission: 04/27/24 [...] vertigo. He presented to the ED at [facility] on 04/19/24 after having a fall [...] meds at presentation to the emergency department. [facility] Medical History (Updated 04/28/24 @ 15:16 by [...] Father , at 40 YOA of an CA Heart disease Other Hypertension Surgical History (Updated [...] is subluxed dueto muscle atrophy. Can not software educator with hand. R arm falls immediately to the bed when I lift it up. He has some tone in the R triceps, biceps and brachioradialis muscle. Has shoulder shrug BL which is about even. NO tremors. R software educator is weak and heb is R hand dominant. He can lift both legs off the bed and hold for 5 sec. Good plantar flexion and dorsiflexion with both feet. PERRLA. No faciall droop. No nystagmus. Tracks well and did not have vertigo Psych mental status grossly normal, thought process normal and cooperative Psych Narrative: depressed affect. Not suicidal......his synagogue ([employer]) feels this is a sinand you will [...] Clarity Clear, Urine pH 5.0, Ur Specific [place] 1.020, Urine Protein 15 H, Urine Glucose [...] with surgery. For now we will use Merlene and YESSICA rogel Follow up with [] [...] completing documentation. Charges/Coding Visit Charges Inpatient E&M: 24763 Init Hosp L3 04/28/24 0740 <Electronically signed by Corazon Wright DO> Cosigner [...] MD; Dr. Corazon Wright DO ~* Signed [facility] Work Phone: 1(727) 370-467503-21-2025 History and physical note [facility] Medical Records Department [address] [place] [address] Post Admission Physician Eval 04/28/24 1241 MR#: [id number] Acct: [id number] Name: YAS ROSA Rep #:[id number] : 1940 83 From: Corazon Wright DO PCP: Dr. Kwabena Menjivar MD Status :ADM IN Location: [place] [address] Admission Information Primary Diagnosis:: DEBILITY DUE TO [...] Skin integrity and Medication Management Patient needs Tech Brazer Tester/ Case Management for: Discharge Planning, Arranging Home [...] body [facility] equipment as needed.) Patient will perform Tub/Shower transfer at: - (Min assist with DME as needed) Patient will complete grooming at: - (Minimal assistance while seated at the sink) Patient will achieve: - (12 steps with 1 handrail to allow [facility] ) Patient will have pain level of: of 3 or less Patient's skin will: remain intact Patient will receive: adequate nutrition. Discharge Planning Pt Prognosis for Sig. Practical Improv. w/in Reasonable Time: Good Estimated Length of stay (days): 28 Anticipated D/C Destination: TBD Was Preadmission Assessment Accurate?: Yes 04/28/24 1877 Cosigner Signature (if applicable): CC: ~ Signed [facility]03-21-2025 History and physical note [facility] Medical Records Department [address] [place] [address] History & Physical Exam 04/28/24 1015 MR#: [id number] Acct: [id number] Name: YAS ROSA Rep #:[id number] : 1940 83 From: Corazon Wright DO PCP: Dr. Kwabena Menjivar MD Status :ADM IN Location: [address] General General Date of Admission: 04/27/24 Date [...] vertigo. He presented to the ED at [facility] on 04/19/24 after having a fall [...] prescribed meds at presentation to theemergency department. [facility] Medical History (Updated 04/28/24 @ 15:16 by [...] Father , at 40 YOA of an CA Heart disease Other Hypertension Surgical History (Updated [...] is subluxed dueto muscle atrophy. Can not software educator with hand. R arm falls immediately to the bed when I lift it up. He has some tone in the R triceps, biceps and brachioradialis muscle. Has shoulder shrug BL which is about even. NO tremors.R software educator is weak and heb is R hand dominant. He can lift both legs off the bed and hold for 5 sec. Good plantar flexion and dorsiflexion with both feet. PERRLA. No faciall droop. No nystagmus. Tracks well and did not have vertigo Psych mental status grossly normal, thought process normal and cooperative Psych Narrative: depressed affect. Not suicidal......his synagogue ([employer]) feels this is a sinand you will [...] Clarity Clear, Urine pH 5.0, Ur Specific [place] 1.020, Urine Protein 15 H, Urine Glucose [...] with surgery. For now we will use Merlene and YESSICA rogel Follow up with [] [...] completing documentation. Charges/Coding Visit Charges Inpatient E&M: 65631 Init Hosp L3 04/28/24 1519 Cosigner Signature (if applicable): CC: Dr. Kwabena [...] MD; Dr. Corazon Wright DO ~* Signed [facility]03-21-2025 [facility]03-20-2025 Progress note Author Awa Chadwick [facility] Note Date/Time April 27, 2024 7:4 5pm [facility] Medical Records Department [address] [place] [address] Progress Note - Orthopedic 04/27/241938 MR#: [id number] Acct: [id number] Name: YAS ROSA Rep #:[id number] : 1940 83 From: Awa CONTEH PCP: Dr. Kwabena Menjivar MD Status :ADM IN Location: [place] [address] Subjective Subjective Seen with Dr. Diego. Patient [...] reapplied. Neurological examination left grade 1 finger software educator, grade 0 finger abduction, grade 4 wrist [...] Cosigner Signature (if applicable): CC: ~ Signed [facility] Work Phone: 1(177) 258-263203-20-2025 Progress note [facility] Medical Records Department [address] [place] [address] Progress Note - Orthopedic 04/27/241938 MR#: [id number] Acct: [id number] Name: YAS ROSA Rep #:[id number] : 1940 83 From: Awa CONTEH PCP: Dr. Kwabena Menjivar MD Status :ADM IN Location: [place] [address] Subjective Subjective Seen with Dr. Diego. Patient [...] reapplied. Neurological examination left grade 1 finger software educator, grade 0 finger abduction, grade 4 wrist [...] Cosigner Signature (if applicable): CC: ~ Signed [facility]03-20-2025 Discharge summary [facility] Medical Records Department [address] [place] [address] Discharge Summary 04/27/24 1353 MR#: [id number] Acct: [id number] Name: YAS ROSA Rep #:[id number] : 1940 83 From: Harish Schneider PCP: Dr. Kwabena Menjivar MD Status :ADM IN Location: [place] [address]- Providers Date of Admission: 04/20/24 Date of [...] fluid was changed in the morning. Has Reinaldo drain therefore expected drainage. H&H is stable, [...] PRN Pain 1-10 Or Fever >100.7 #0 tabs04/27/24 benzocaine 15 mg-menthol 3.6 mg lozenges (Sore [...] (Auto) 78.8 H, Lymph % (Auto) 14.3L, Coke % (Auto) 5.8, Eos % (Auto) 0.0, [...] fluoroscopic images were also obtained. Reading Location: [address] Cervical Spine X-Ray 04/26/24 11:05 IMPRESSION: Intraoperative fluoroscopy performed for anterior cervical discectomy and fusionsurgery. 10 fluoroscopic images were also obtained. Reading Location: [address] Cervical Spine X-Ray 04/27/24 07:00 IMPRESSION: Osteopenia. Interval placement of a metallic fixation plate at the anterior margin of C3-C6. Interval placement of interbody spacer devices at C3-4, C4-5, and C5-6. No acute bony abnormality of the cervical spine. Similar moderate/severe degenerative disc disease at C6-7. [facility] Discharge Diet: Light diet - [...] Self Care Charges/Coding Visit Charges Inpatient E&M: 07477 Disch Hosp >30min 04/27/24 1357 Cosigner Signature (if applicable): CC: Dr. Kwabena Menjivar MD; Dr. Harish Baxter MD~ Signed [facility]03-20-2025 Discharge summary [facility] Medical Records Department [address] [place] [address] Instructions for Home/Discharge Instructions 04/27/24 1045 MR#: [id number] Acct: [id number] Name: YAS ROSA Rep #:[id number] : 1940 83 From: Harish Schneider PCP: [...] Alfred DO; Dr.Robert Gretchen MD ~ Signed [facility]03-20-2025 [facility] Discharge summary Author Harish [facility] Note Date/Time April 27, 2024 1:5 3pm [facility] Medical Records Department [address] [place] [address] Instructions for Home/Discharge Instructions 04/27/24 1045 MR#: [id number] Acct: [id number] Name: YAS ROSA Brigido Rep #:[id number] : 1940 83 From: Harish Schneider PCP: [...] Alfred DO; Dr.Robert Gretchen MD ~ Signed [facility] Work Phone: 1(316) 933-114603-20-2025 Radiology Diagnostic study note [facility] Imaging Services [address] [place], [place] [address] Cerv Spine 2 or 3 Views MR#: [id number] Acct: [id number] Name: YAS ROSA Rep #: [id number] : 1940 M 83 From: Oren Narvaez DO PCP: Dr. Kwabena Menjivar MD Status: ADM IN Study:Cerv Spine 2 or 3 Views Date of Exam: 04/27/24 Exam# [id number] Ordering Dr: Cheikh Chadwick PROCEDURE: Cervical spine [...] at C6-7. Reading Location: [facility] CC: YADY yHman; Dr. Kwabena Menjivar MD ~ Brace Maker: Signed [facility]03-19-2025 Progress note Author Harish Baxter [facility] Note Date/Time April 26, 2024 4:3 5pm [facility] Medical Records Department [address] [place] [address] Progress Note - Hospitalist 04/26/24 1525 MR#: [id number] Acct: [id number] Name: YAS ROSA Rep #:[id number] : 1940 83 From: Harish Schneider PCP: Dr. Kwabena Menjivar MD Status :ADM IN Location: [place] [address] Reason for Visit Reason for Visit: Diagnoses [...] 23:59 23:59 Intake Total 1640 / 1640 2084 / 2084 2240 / 2240 Output Total 350 / [...] % (Auto) 62.4, Lymph % (Auto) 26.4, Coke% (Auto) 8.2, Eos % (Auto) 2.2, Baso [...] fluoroscopic images were also obtained. Reading Location: [address] Cervical Spine X-Ray 04/26/24 11:05 IMPRESSION: Intraoperative fluoroscopy performed for anterior cervical discectomy and fusionsurgery. 10 fluoroscopic images were also obtained. Reading Location: [address] Physical Exam Narrative Seen and examined [...] dressing soaked with serosanguineous fluid, expected from [place] drain. Subcutaneous bruise/ecchymosis over left orbital and [...] with SCDs Charges/Coding Visit Charges Inpatient E&M: 34739 Subs Hosp L2 04/26/24 1635 <Electronically signed by Harish Baxter MD> Cosigner Signature (if applicable): CC: ~ Signed [facility] Work Phone: 1(713) 671-631503-19-2025 Consult note Author Krish Guevara [facility] Note Date/Time April 26, 2024 3:5 1pm [facility] Medical Records Department [address] [place] [address] Anesthesia Postop Eval II 04/26/24 1549 MR#: [id number] Acct: [id number] Name: YAS ROSA Rep #:[id number] : 1940 83 From: Krish Guevara MD PCP: Dr. Kwabena Menjivar MD Status :ADM IN Y Race: C Location: [place] [address] 6-1 Anesthesia Postop Eval I Sum Postop Eval Completion status Anesthesia document: Postop Eval 1 completed: Yes Anesthesia Postop Eval I Summary Anesthesia Postop Eval I Summary: Anesthesia Postop Eval I: Assessment Summary Airway patent Yes 04/26/24 14:22 [employer]TNES Spontaneous unlabored Yes 04/26/24 14:22 [employer]ES respirations Mental status nausea No 04/26/24 14:22 [employer] Vomiting No 04/26/24 14:22 [employer]ES Anesthesia Postop Eval I: Fluid Summary Crystalloid volume administer 1,400 04/26/24 14:22 [employer]TNES (ml) Colloids volume administered ( ml) Blood Product volume administered (ml) Total IV fluid infused 1,400 04/26/24 14:22 [employer]TNES Anesthesia Postop Eval I: Summary Notes Anesthesia Complication No 04/26/24 14:22 [employer]TNES Anesthesia Complication Comment: Post-operative progress note Anesthesia: Postop Eval II Evaluation Mental status: Awake and Calm Pain Level: 2 nausea: No Vomiting: No Complications Anesthesia Complication: No 04/26/24 1551 <Electronically signed by Krish parada MD> Date _ Krish Guevara MD Cosigner Signature: Date CC: ~ Signed [facility] Work Phone: 1(433) 839-713703-19-2025 Progress note [facility] Medical Records Department [address] [place] [address] Progress Note - Hospitalist 04/26/24 1525 MR#: [id number] Acct: [id number] Name: MOEYAS Brigido Rep #:[id number] : 1940 83 From: Harish Schneider PCP: Dr. Kwabena Menjivar MD Status :ADM IN Location: [place] [address] Reason for Visit Reason for Visit: Diagnoses [...] % (Auto) 62.4, Lymph % (Auto) 26.4, Coke% (Auto) 8.2, Eos % (Auto) 2.2, Baso [...] fluoroscopic images were also obtained. Reading Location: [address] Cervical Spine X-Ray 04/26/24 11:05 IMPRESSION: Intraoperative fluoroscopy performed for anterior cervical discectomy and fusionsurgery. 10 fluoroscopic images were also obtained. Reading Location: [address] Physical Exam Narrative Seen and examined [...] dressing soaked with serosanguineous fluid, expected from [place] drain. Subcutaneous bruise/ecchymosis over left orbital and [...] Will start steroids and consult spine surgery. FELIPE Diego, tentative plan for patient to go to surgery on Wednesday. Patient nowin agreement. 04/24: Surgery for today is canceled because of his scheduling/anesthesiology staffing problem. Patient also complained of mild urine retention. Started on Flomax. Bladder scan. 04/25: Patient had C3-C6 anterior cervical discectomy and fusion with plate instrumentation. PLAN: Plan VTE prophylaxis with SCDs Charges/Coding Visit Charges Inpatient E&M: 97075 Subs Hosp L2 04/26/24 1635 Cosigner Signature (if applicable): CC: ~ Signed [facility]03-19-2025 Consult note Author Tl Daniel [facility] Note Date/Time April 26, 2024 2:2 2pm [facility] Medical Records Department [address] [place] [address] Anesthesia Postop Eval I 04/26/24 1422 MR#: [id number] Acct: [id number] Name: YAS ROSA Rep #:[id number] : 1940 83 From: Tl JHAVERI PCP: Dr. Kwabena Menjivar MD Status :ADM IN Y Race: C Location: [place] [address] Anesthesia: Postop Eval I Current Vital Signs [...] Yes 04/26/241421 <Electronically signed by Tl Daniel CRNA> Date _ Tl Daniel CRNA Cosigner Signature: Date CC: ~ Signed [facility] Work Phone: 1(510) 659-898903-19-2025 Consult note [facility] Medical Records Department [address] [place] [address] Anesthesia Postop Eval II 04/26/24 1549 MR#: [id number] Acct: [id number] Name: YAS ROSA Rep #:[id number] : 1940 83 From: Krish Guevara MD PCP: Dr. Kwabena Menjivar MD Status :ADM IN Y Race: C Location: [address] Anesthesia Postop Eval I Sum Postop Eval Completion status Anesthesia document: Postop Eval 1 completed: Yes Anesthesia Postop Eval I Summary Anesthesia Postop Eval I Summary: Anesthesia Postop Eval I: Assessment Summary Airway patent Yes 04/26/24 14:22 [employer]TNES Spontaneous unlabored Yes 04/26/24 14:22 [employer] respirations Mental status nausea No 04/26/24 14:22 [employer] Vomiting No 04/26/24 14:22 [employer] Anesthesia Postop Eval I: Fluid Summary Crystalloid volume administer 1,400 04/26/24 14:22 [employer]TN[employer] (ml) Colloids volume administered ( ml) Blood Product volume administered (ml) Total IV fluid infused 1,400 04/26/24 14:22 [employer]ES Anesthesia Postop Eval I: Summary Notes Anesthesia Complication No 04/26/24 14:22 [employer] Anesthesia Complication Comment: Post-operative progress note Anesthesia: Postop Eval II Evaluation Mental status: Awake and Calm Pain Level: 2 nausea: No Vomiting: No Complications Anesthesia Complication: No 04/26/24 1551 tal CABELLO> Date _ [facility] Signature: Date CC: ~ Signed [facility]03-19-2025 Procedure note [facility] Medical Records Department [address] [place] [address] Operative Report 04/26/24 1425 MR#: [id number] Acct: [id number] Name: YAS ROSA Brigido Rep #:[id number] : 1940 83 From: Ciro Diego MD PCP: Dr. 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, stenosis, cord compression withmyelopathy, cord signal changes Post-Operative Diagnosis: Same Surgery/Procedure Performed: C3-6 ACDF formula bottler: Yes Network Administrator: Awa Chadwick Tasks completed by special events assistant: Closing, Removing tissue, Implanting device, Hemostasis: [...] all DRAINS/GRAFTS/IMPLANTS that apply: Drains Drain details: [place] drain , Graft Graft details: Structural allograft cortical cancellous strut, DBX and Implanted device Implanted device details: Medtronic Hodgen Elite plate instrumentation Estimated Blood Loss: 50 cc Specimen collected: No Description of surgery: Preoperative diagnosis: 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 Anesthesia: Gen. endotracheal Estimated blood loss: 50 mL Complications: None Instrumentation used: Medtronic Hodgen Elite plate, LASR corticocancellous block Indications: The [...] Disc fragments were removed with the pituitary. Oakley pins were placed in C4 and C5 [...] good pullout strength. A 60 mm Medtronic Hodgen Elite plate wascontoured for larger lordosis due [...] was again given. Hemostasis was achieved. A Reinaldo drain was then inserted. Closure was done [...] entire surgery and performed the surgery myself. Almond Huller Awa Chadwick PA-C. My physician architectural administrative assistant was a vital part of this [...] Keanu Alfred DO; Dr.Robert Gretchen MD~ Signed [facility]03-19-2025 Consult note [facility] Medical Records Department [address] [place] [address] Anesthesia Postop Eval I 04/26/241421 MR#: [id number] Acct: [id number] Name: YAS ROSA Rep #:[id number] : 1940 83 From: Tl JHAVERI PCP: Dr. Kwabena Menjivar MD Status :ADM IN Y Race: C Location: [place] [address] 07-09 Anesthesia: Postop Eval I Current Vital Signs Temperature: 97.7 F Pulse Rate: 66 Blood Pressure: 107/55 Respiratory Rate: 16 Pulse Ox: 94 Assessment Airway patent: Yes Spontaneous unlabored respirations: Yes nausea: No Vomiting: No Anesthesia Complication: No Fluid Hydration Crystalloid volume administer (ml): 1,400 Total IV fluid infused: 1,400 Progress Note Anesthesia document: Postop Eval 1 completed: Yes 04/26/241421 [employer]> Date _ Tl Daniel [employer] Cosigner Signature: Date CC: ~ Signed [facility]03-19-2025 Radiology Diagnostic study note [facility] Imaging Services [address] [facility] [place], [place] [address] Cerv Spine 2 or 3 Views MR#: [id number] Acct: [id number] Name: YAS ROSA Rep #: [id number] : 1940 M 83 From: Fito Maldonado MD PCP: Dr. Kwabena Menjivar MD Status: ADM IN Study:Cerv Spine 2 or 3 Views Date of Exam: 04/26/24 Exam# [id number] Ordering Dr: Kristine Diego MD PROCEDURE: CERV [...] fluoroscopic images were also obtained. Reading Location: [address] CC: Dr. Ciro Diego MD; Dr. Kwabena Menjivar MD ~ Brace Maker: Signed [facility]03-19-2025 Radiology Diagnostic study note [facility] Imaging Services [address] [place] [address] 054851 O.R. Fluoro for C-Arm MR#: [id number] Acct: [id number] Name: YAS ROSA Rep #: [id number] : 1940 M 83 From: Fito Maldonado MD PCP: Dr. Kwabena Menjivar MD Status: ADM IN Study:O.R. Fluoro for C-Arm Date of Exam: 04/26/24 Exam# [id number] Ordering Dr: Kristine Diego MD PROCEDURE: CERV [...] fluoroscopic images were also obtained. Reading Location: [address] CC: Dr. Ciro Diego MD; Dr. Kwabena Menjivar MD ~ Brace Maker: Signed [facility]03-19-2025 Consult note Author Tl Daniel [facility] Note Date/Time April 26, 2024 10: 39am [facility] Medical Records Department [address] [place] [address] Pre-Anesthesia Evaluation 04/26/24 1033 MR#: [id number] Acct: [id number] Name: YAS ROSA Rep #:[id number] : 1940 83 From: Tl JHAVERI PCP: Dr. 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 mill programmer Hx Hospitalization No 03/08/24 08:44 Any Problems [...] take am of surgery PONV PONV - cnc mill programmer: PONV - cnc mill programmer Female HX of Motion Sickness HX of N/V After Surgery Non-Smoker Duration of Surgery greater than 60 minutes Number of Risk Factors PONV Score Height & Weight Height & Weight: Anesthesia: Height & Weight Height 5 ft 8 in 04/26/24 08:40 Weight: 75.6 kg 04/26/24 08:40 Body Mass Index (BMI) 25.3 04/26/24 08:40 Respiratory Assessment Respiratory Assessment - cnc mill programmer: Respiratory Tract Infection Hx - cnc mill programmer Hx Respiratory Tract Infection No 04/25/24 21:52 STOP Sleep Apnea STOP Sleep Apnea - cnc mill programmer: STOP Sleep Apnea - cnc mill programmer Hx Hypertension No 04/20/24 12:54 Hx Sleep [...] Tobacco Use History Tobacco Use History - cnc mill programmer: Tobacco Use History - cnc mill programmer Tobacco Use Smoking Status Former smoker 04/19/24 15:04 Hx Tobacco Use No 04/19/24 15:04 Years Smoking Packs Smoked per Day Smoking Cessation Date was No - quit smoking greater 04/19/24 15:04 within the last 15 years than 15 years ago Hx Smoking Cessation Date 09/08/1968 04/19/24 15:04 Hx Smoking Cessation Counseling Hematologic Medial History Hematologic Hx - cnc mill programmer: Hematologic Medical Hx - weekend caregiver Hx of Blood Transfusion No 04/19/24 15:04 [...] confused, unrespo /Reproduction History /Reproductive History - cnc mill programmer: /Reproductive Hx- cnc mill programmer Hx Now No 04/25/24 21:52 Gestational Age [...] CRNA Cosigner Signature: Date CC: ~ Signed [facility] Work Phone: 1(793) 261-150603-19-2025 Consult note Author Tl Daniel [facility] Note Date/Time April 26, 2024 9:4 9am [facility] Medical Records Department [address] [address] Anesthesia Postop Eval I 04/26/24 0949 MR#: [id number] Acct: [id number] Name: YAS ROSA Rep #:[id number] : 1940 83 From: Tl JHAVERI PCP: Dr. Kwabena Menjivar MD Status :ADM IN Y Race: C Location: [place] [address] Anesthesia: Postop Eval I Current Vital Signs Temperature: 97.4 F Pulse Rate: 67 Blood Pressure: 124/74 Respiratory Rate: 16 Pulse Ox: 98 Assessment Airway patent: Yes Spontaneous unlabored respirations: Yes nausea: No Vomiting: No Anesthesia Complication: No Fluid Hydration Crystalloid volume administer (ml): 1,500 Total IV fluid infused: 1,500 Progress Note Anesthesia document: Postop Eval 1 completed: Yes 04/26/2449 <Electronically signed by Tl Daniel CRNA> Date _ Tl Daniel CRNA Cosigner Signature: Date CC: ~ Signed [facility] Work Phone: 1(610) 465-995303-19-2025 Progress note Author Ciro Diego [facility] Note Date/Time April 26, 2024 9:4 6am [facility] Medical Records Department [address] [place] [address] Progress Note - Orthopedic 04/26/24 0945 MR#: [id number] Acct: [id number] Name: YAS ROSA Rep #:[id number] : 1940 83 From: Ciro Diego MD PCP: Dr. Kwabena Menjivar MD Status :ADM IN Location: [place] [address] Subjective Subjective Saw patient in preop. Reviewed [...] % (Auto) 62.4, Lymph % (Auto) 26.4, Coke% (Auto) 8.2, Eos % (Auto) 2.2, Baso % (Auto) 0.1, Absolute Neuts (auto) 5.4, Absolute Lymphs (auto) 2.30, Nucleated RBC % 0, Sodium 136, Potassium 4.5, Chloride 107, Carbon Dioxide 22.8, Anion Gap 6, BUN 20 H, Creatinine 0.83, EstimCreat Clear Calc 66.39, Est GFR (MDRD) Non-Af 87, BUN/Creatinine Ratio 23.4 H, Glucose 91, Calcium 8.2 Charges/Coding Visit Charges Inpatient E&M: 00335 Subs Hosp L1 04/26/24 0946 <Electronically signed by Ciro Diego MD> Cosigner Signature (if applicable): CC: ~ Signed [facility] Work Phone: 1(223) 374-881903-19-2025 Consult note [facility] Medical Records Department [address] [place] [address] Pre-Anesthesia Evaluation 04/26/24 1033 MR#: [id number] Acct: [id number] Name: YAS ROSA Rep #:[id number] : 1940 83 From: Tl JHAVERI PCP: Dr. 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 Meds patient instructed to ativert at 0546 04/26/24 08:40 take am of surgery PONV PONV - cnc mill programmer: PONV - cnc mill programmer Female HX of Motion Sickness HX of N/V After Surgery Non-Smoker Duration of Surgery greater than 60 minutes Number of Risk Factors PONV Score Height & Weight Height & Weight: Anesthesia: Height & Weight Height 5 ft 8 in 04/26/24 08:40 Weight: 75.6 kg 04/26/24 08:40 Body Mass Index (BMI) 25.3 04/26/24 08:40 Respiratory Assessment Respiratory Assessment - cnc mill programmer: Respiratory Tract Infection Hx - cnc mill programmer Hx Respiratory Tract Infection No 04/25/24 21:52 STOP Sleep Apnea STOP Sleep Apnea - cnc mill programmer: STOP Sleep Apnea - cnc mill programmer Hx Hypertension No 04/20/24 12:54 Hx Sleep [...] Tobacco Use History Tobacco Use History - cnc mill programmer: Tobacco Use History - cnc mill programmer Tobacco Use Smoking Status Former smoker 04/19/24 15:04 Hx Tobacco Use No 04/19/24 15:04 Years Smoking Packs Smoked per Day Smoking Cessation Date was No - quit smoking greater 04/19/24 15:04 within the last 15 years than 15 years ago Hx Smoking Cessation Date 09/08/1968 04/19/24 15:04 Hx Smoking Cessation Counseling Hematologic Medial History Hematologic Hx - cnc mill programmer: Hematologic Medical Hx - weekend caregiver Hx of Blood Transfusion No 04/19/24 15:04 [...] confused, unrespo /Reproduction History /Reproductive History - cnc mill programmer: /Reproductive Hx- cnc mill programmer Hx Now No 04/25/24 21:52 Gestational Age [...] additional complaints, except as documented. 04/26/24 1039 [employer]> Date _ Tl C-Road [employer] Cosigner Signature: Date CC: ~ Signed [facility]03-19-2025 Consult note [facility] Medical Records Department [address] [facility] [place] [address] Anesthesia Postop Eval I 04/26/2449 MR#: [id number] Acct: [id number] Name: YAS ROSA Rep #:[id number] : 1940 83 From: Tl JHAVERI PCP: Dr. Kwabena Menjivar MD Status :ADM IN Y Race: C Location: [place] [address] Anesthesia: Postop Eval I Current Vital Signs Temperature: 97.4 F Pulse Rate: 67 Blood Pressure: 124/74 Respiratory Rate: 16 Pulse Ox: 98 Assessment Airway patent: Yes Spontaneous unlabored respirations: Yes nausea: No Vomiting: No Anesthesia Complication: No Fluid Hydration Crystalloid volume administer (ml): 1,500 Total IV fluid infused: 1,500 Progress Note Anesthesia document: Postop Eval 1 completed: Yes 04/26/24948 [employer]> Date _ Tl [employer] Cosigner Signature: Date CC: ~ Signed [facility]03-19-2025 Progress note [facility] Medical Records Department [address] [place] [address] Progress Note - Orthopedic 04/26/2445 MR#: [id number] Acct: [id number] Name: YAS ROSA Rep #:[id number] : 1940 83 From: Ciro Diego MD PCP: Dr. Kwabena Menjivar MD Status :ADM IN Location: [place] [address] Subjective Subjective Saw patient in preop. Reviewed [...] % (Auto) 62.4, Lymph % (Auto) 26.4, Coke% (Auto) 8.2, Eos % (Auto) 2.2, Baso % (Auto) 0.1, Absolute Neuts (auto) 5.4, Absolute Lymphs (auto) 2.30, Nucleated RBC % 0, Sodium 136, Potassium 4.5, Chloride 107, Carbon Dioxide 22.8, Anion Gap 6, BUN 20 H, Creatinine 0.83, EstimCreat Clear Calc 66.39, Est GFR (MDRD) Non-Af 87, BUN/Creatinine Ratio 23.4 H, Glucose 91, Calcium 8.2 Charges/Coding Visit Charges Inpatient E&M: 52533 Subs Hosp L1 04/26/24 0946 Cosigner Signature (if applicable): CC: ~ Signed [facility]03-18-2025 Progress note Author Ana Rosa Howard [facility] Note Date/Time April 25, 2024 9:1 7pm [facility] Medical Records Department [address] [place] [address] Progress Note - Surgery 04/25/24 1432 MR#: [id number] Acct: [id number] Name: YAS ROSA Rep #:[id number] : 1940 83 From: Ana Rosa Ruiz ll [employer] CO[employer]C PCP: Dr. Kwabena Menjivar MD Status :ADM IN Location: [place] [address] <Statement entered by Yas Godinez MD - [...] % (Auto) 60.4, Lymph % (Auto) 30.0, Coke% (Auto) 7.5, Eos % (Auto) 1.3, Baso [...] <Electronically signed by Ana Rosa Howard NP [employer]> Cosigner Signature (if applicable): 04/25/242116 <Electronically signed by Yas Godinez MD> CC: ~ Signed [facility] Work Phone: 1(739) 920-277703-18-2025 Progress note [facility] Medical Records Department [address] [place] [address] Progress Note - Surgery 04/25/24 1432 MR#: [id number] Acct: [id number] Name: YAS ROSA Rep #:[id number] : 1940 83 From: Ana Rosa mccall [employer] GETTER [employer]C PCP: Dr. Kwabena Menjivar MD Status :ADM IN Location: [place] [address] I have personally performed a face to [...] % (Auto) 60.4, Lymph % (Auto) 30.0, Coke% (Auto) 7.5, Eos % (Auto) 1.3, Baso [...] of care with Dr. Godinez. 04/25/24 1453 Cosigner Signature (if applicable): 04/25/242116 CC: ~ Signed [facility]03-18-2025 Progress note Author Harish Baxter [facility] Note Date/Time April 25, 2024 2:4 7pm [facility] Medical Records Department [address] [place] [address] Progress Note - Hospitalist 04/25/24 1441 MR#: [id number] Acct: [id number] Name: YAS ROSA Rep #:[id number] : 1940 83 From: Harish Schneider PCP: Dr. Kwabena Menjivar MD Status :ADM IN Location: [place] [address] Reason for Visit Reason for Visit: Diagnoses [...] % (Auto) 60.4, Lymph % (Auto) 30.0, Coke% (Auto) 7.5, Eos % (Auto) 1.3, Baso [...] with SCDs Charges/Coding Visit Charges Inpatient E&M: 41447 Subs Hosp L2 04/25/24 1447 <Electronically signed by Harish Baxter MD> Cosigner Signature (if applicable): CC: ~ Signed [facility] Work Phone: 1(235) 615-508703-18-2025 Progress note [facility] Medical Records Department [address] [place] [address] Progress Note - Hospitalist 04/25/24 1441 MR#: [id number] Acct: [id number] Name: YAS ROSA Rep #:[id number] : 1940 83 From: Harish Schneider PCP: Dr. Kwabena Menjivar MD Status :ADM IN Location: [place] [address] 1 Reason for Visit Reason for Visit: [...] % (Auto) 60.4, Lymph % (Auto) 30.0, Coke% (Auto) 7.5, Eos % (Auto) 1.3, Baso [...] with SCDs Charges/Coding Visit Charges Inpatient E&M: 02825 Subs Hosp L2 04/25/24 0558 Cosigner Signature (if applicable): CC: ~ Signed [facility]03-18-2025 Progress note Author Ciro Diego [facility] Note Date/Time April 25, 2024 12: 04pm [facility] Medical Records Department [address] [place] [address] Progress Note - Orthopedic 04/25/24 1200 MR#: [id number] Acct: [id number] Name: YAS RSOA Rep #:[id number] : 1940 83 From: Ciro Diego MD PCP: Dr. 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 Charges/Coding Visit Charges Inpatient E&M: 16873 Subs Hosp L3 04/25/24 1209 <Electronically signed by Ciro Diego MD> Cosigner Signature (if applicable): CC: ~ Signed [facility] Work Phone: [phone]) 922-996703-18-2025 Progress note [facility] Medical Records Department [address] [place] [address] Progress Note - Orthopedic 04/25/24 1200 MR#: [id number] Acct: [id number] Name: YAS ROSA Rep #:[id number] : 1940 83 From: Ciro Diego MD PCP: Dr. Kwabena Menjivar MD Status :ADM IN Location: 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 Charges/Coding Visit Charges Inpatient E&M: 86370 Subs Hosp L3 04/25/24 1204 Cosigner Signature (if applicable): CC: ~ Signed [facility]03-17-2025 Progress note Author Harish Baxter [facility] Note Date/Time April 24, 2024 2:1 8pm [facility] Medical Records Department [address] [place] [address] Progress Note - Hospitalist 04/24/24 0804 MR#: [id number] Acct: [id number] Name: YAS ROSA Rep #:[id number] : 1940 83 From: Harish Schneider PCP: Dr. Kwabena Menjivar MD Status :ADM IN Location: [place] [address] Reason for Visit Reason for Visit: Diagnoses [...] % (Auto) 60.3, Lymph % (Auto) 30.5, Coke% (Auto) 7.9, Eos % (Auto) 0.7, Baso [...] left maxillary sinus. (3) Subconjunctival hemorrhage: PLAN: 2/ to fall. Visual andrews intact, PERRL, EOMI. [...] with SCDs Charges/Coding Visit Charges Inpatient E&M: 29944 Subs Hosp L2 04/24/24 9014 <Electronically signed by Harish Baxter MD> Cosigner Signature (if applicable): CC: ~ Signed [facility] Work Phone: 1(683) 387-462703-17-2025 Progress note [facility] Medical Records Department [address] [place] [address] Progress Note - Hospitalist 04/24/24 0804 MR#: [id number] Acct: [id number] Name: YAS ROSA Rep #:[id number] : 1940 83 From: Harish Schneider PCP: Dr. Kwabena Menjivar MD Status :ADM IN Location: [place] [address] Reason for Visit Reason for Visit: Diagnoses [...] % (Auto) 60.3, Lymph % (Auto) 30.5, Coke% (Auto) 7.9, Eos % (Auto) 0.7, Baso [...] left maxillary sinus. (3) Subconjunctival hemorrhage: PLAN: 2/ to fall. Visual andrews intact, PERRL, EOMI. [...] with SCDs Charges/Coding Visit Charges Inpatient E&M: 01342 Subs Hosp L2 04/24/24 2241 Cosigner Signature (if applicable): CC: ~ Signed [facility]03-16-2025 Progress note Author Keanu Alfred [facility] Note Date/Time April 23, 2024 12: 42pm [facility] Medical Records Department [address] [place] [address] Progress Note - Hospitalist 04/23/24 4393 MR#: [id number] Acct: [id number] Name: YAS ROSA Rep #:[id number] : 1940 83 From: Keanu Alfred DO PCP: Dr. Kwabena Menjivar MD Status :ADM IN Location: [place] [address] Reason for Visit Reason for Visit: Diagnoses [...] for discharge. Charges/Coding Visit Charges Inpatient E&M: 84891 Subs Hosp L2 04/23/24 1242 <Electronically signed by Keanu Alfred DO> Cosigner Signature (if applicable): CC: ~ Signed [facility] Work Phone: [phone]) 779-999703-16-2025 Progress note [facility] Medical Records Department [address] [place] [address] Progress Note - Hospitalist 04/23/24 0834 MR#: [id number] Acct: [id number] Name: YAS ROSA Rep #:[id number] : 1940 83 From: Keanu Alfred DO PCP: Dr. Kwabena Menjivar MD Status :ADM IN Location: [facility] [id number]- 1 Reason for Visit Reason for Visit: [...] for discharge. Charges/Coding Visit Charges Inpatient E&M: 55303 Subs Hosp L2 04/23/24 1242 Cosigner Signature (if applicable): CC: ~ Signed [facility]03-15-2025 Progress note Author Keanu Alfred [facility] Note Date/Time April 22, 2024 1:2 1pm [facility] Medical Records Department [address] [place] [address] Progress Note - Hospitalist 04/22/24 0851 MR#: [id number] Acct: [id number] Name: YAS ROSA Rep #:[id number] : 1940 83 From: Keanu Alfred DO PCP: Dr. Kwabena Menjivar MD Status :ADM IN Location: [facility] [id number]- 1 Reason for Visit Reason for Visit: [...] for discharge. Charges/Coding Visit Charges Inpatient E&M: 31603 Subs Hosp L2 04/22/24 1321 <Electronically signed by Keanu Alfred DO> Cosigner Signature (if applicable): CC: ~ Signed [facility] Work Phone: 1([phone]) 626-675803-15-2025 Progress note [facility] Medical Records Department [address] [place] [address] Progress Note - Hospitalist 04/22/24 0851 MR#: [id number] Acct: [id number] Name: YAS ROSA Rep #:[id number] : 1940 83 From: Keanu Alfred DO PCP: Dr. Kwabena Menjivar MD Status :ADM IN Location: [facility] [id number]- 1 Reason for Visit Reason for Visit: [...] for discharge. Charges/Coding Visit Charges Inpatient E&M: 03976 Subs Hosp L2 04/22/24 1321 Cosigner Signature (if applicable): CC: ~ Signed [facility]03-14-2025 Consult note Author Ciro Diego [facility] Note Date/Time April 21, 2024 4:3 2pm [facility] Medical Records Department [address] [place] [address] Consultation - Orthopedics 04/21/24 1621 MR#: [id number] Acct: [id number] Name: YAS ROSA Rep #:[id number] : 1940 83 From: Ciro Diego MD PCP: Dr. Kwabena Menjivar MD Status :ADM IN Location: [place] [address] HPI Consult Data Date of Consult: 04/21/24 [...] has had tremendous difficulty being independently ambulatory. 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 Charges/Coding Visit Charges Inpatient E&M: 69496 Init Hosp L3 04/21/24 1632 <Electronically signed by Ciro Diego MD> Cosigner Signature (if applicable): CC: Dr. Kwabena Menjivar MD; Dr. Keanu Alfred, DO~ Signed [facility] Work Phone: 1(783) 263-221703-14-2025 Consult note [facility] Medical Records Department [address] [place] [address] Consultation - Orthopedics 04/21/24 1621 MR#: [id number] Acct: [id number] Name: YAS ROSA Rep #:[id number] : 1940 83 From: Ciro Diego MD PCP: Dr. Kwabena Menjivar MD Status :ADM IN Location: [facility] [id number]- 1 HPI Consult Data Date of Consult: [...] has had tremendous difficulty being independently ambulatory. 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 Charges/Coding Visit Charges Inpatient E&M: 15124 Init Hosp L3 04/21/24 1632 Cosigner Signature (if applicable): CC: Dr. Kwabena Menjivar MD; Dr. Keanu Alfred, DO~ Signed [facility]03-14-2025 Progress note Author Keanu Alfred [facility] Note Date/Time April 21, 2024 1:5 7pm [facility] Medical Records Department [address] [place] [address] Progress Note - Hospitalist 04/21/24 8156 MR#: [id number] Acct: [id number] Name: YAS ROSA Rep #:[id number] : 1940 83 From: Keanu Alfred DO PCP: Dr. Kwabena Menjivar MD Status :ADM IN Location: [place] [address] Reason for Visit Reason for Visit: Diagnoses [...] Physician: Kwabena Menjivar Performed By: Melida Child, RDCS, RVT Physical Exam Const alert and no [...] with SCDs Charges/Coding Visit Charges Inpatient E&M: 96775 Subs Hosp L2 04/21/24 9386 <Electronically signed by Keanu Alfred DO> Cosigner Signature (if applicable): CC: ~ Signed [facility] Work Phone: 1(616) 947-835903-14-2025 Progress note [facility] Medical Records Department [address] [place] [address] Progress Note - Hospitalist 04/21/24829 MR#: [id number] Acct: [id number] Name: YAS ROSA Rep #:[id number] : 1940 83 From: Keanu Alfred DO PCP: Dr. Kwabena Menjivar MD Status :ADM IN Location: [place] [address] Reason for Visit Reason for Visit: Diagnoses [...] Physician: Kwabena Menjivar Performed By: Melida Child, RDCS, RVT Physical Exam Const alert and no [...] PLAN: Secondary to fall. Coservative mgmt. Dr. Godinze's input apprecriated. No blowing nose, nor sleeping [...] Will start steroids and consult spine surgery. FELIPE Diego, tentative plan for patient to go to surgery on Wednesday, if patient agrees. PLAN: Plan VTE prophylaxis with SCDs Charges/Coding Visit Charges Inpatient E&M: 65164 Subs Hosp L2 04/21/24 1357 Cosigner Signature (if applicable): CC: ~ Signed [facility]03-13-2025 Progress note Author Keanu Alfred [facility] Note Date/Time April 20, 2024 1:5 7pm [facility] Medical Records Department [address] [place] [address] Progress Note - Hospitalist 04/20/24 0752 MR#: [id number] Acct: [id number] Name: YAS ROSA Rep #:[id number] : 1940 83 From: Keanu Alfred DO PCP: Dr. Kwabena Menjivar MD Status :ADM IN Location: [place] [id number]- [id number] Reason for Visit Reason for Visit: [...] 83.7 H, Lymph % (Auto) 9.8 L, Coke % (Auto) 5.7, Eos % (Auto) 0.0, [...] (Auto) 73.5 H, Lymph % (Auto) 17.6L, Coke % (Auto) 8.4, Eos % (Auto) 0.1, [...] use of iterative reconstruction technique). Reading Location: [facility] Facial/Sinus 04/19/24 10:42 IMPRESSION: Mildly depressed [...] use of iterative reconstruction technique). Reading Location: [facility] Head/Neck CTA 04/19/24 10:54 IMPRESSION: RIGHT CAROTID: Unremarkable LEFT CAROTID: Minimal plaque at the origin of the left internal carotid artery. VERTEBRALS: Unremarkable INTRACRANIAL: Unremarkable. One or more dose reduction techniques were used (e.g., Automated exposure control, adjustment of the mA and/or kV according to patient size, use of iterative reconstruction technique). Reading Location: [facility]--[facility] Chest X-Ray 04/19/24 11:20 IMPRESSION: 1. No visible acute cardiopulmonary findings. 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 Consider outpatient CT chest. 2. Additional description as above. Reading Location: [id number] Brain MRI 04/19/24 15:02 IMPRESSION: 1. No acute intracranial abnormality, specifically no evidence of acute ischemia. 2. Mild atrophy and chronic small-vessel ischemic changes. 3. Acute left facial bone fractures better seen and described on recent facial bone CT. Reading Location: [facility] Cervical Spine MRI 04/19/24 15:02 IMPRESSION: 1. 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 2. Acquired mild to severe multilevel foraminal narrowing. See level by level comments above. 3. 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 Reading Location: [facility] Physical Exam Const alert and no apparent [...] with SCDs Charges/Coding Visit Charges Inpatient E&M: 77775 Subs Hosp L2 04/20/24 1257 <Electronically signed [...] doing CPR be futile. Procedures Hospitalists Procedures: 95284 Advncd Care Plan 30 Min 04/20/24 1357<Electronically signed by Keanu Alfred DO> Cosigner Signature (if applicable): cc: ~* Signed [facility] Work Phone: 1([phone]) 873-828803-13-2025 Evaluation note* Diagnosis Onset Date Resolution Status [...] 12:54pm Hypertension chronic April 20, 2024 12:54pm [facility] Work Phone: 1(591) 487-144803-13-2025 Evaluation note* Diagnosis Onset Date Resolution Status [...] acute April 27 3:15pm Urinary incontinence acute [place] 2024 3:15pm Urinary tract infection acute 2024 3:15pm Urine retention acute April 3:15pm Anxiety and depression chronic Ma [facility] 2024 3:15pm Bilateral arm weakness chronic Ma 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 April 27, 2024 3:15pm GERD with esophagitis chronic [facility] 2024 3:15pm History of IBS chronic April 3:15pm Postural dizziness with near syncope chronic April 27, 2024 3:15pm Urinary hesitancy chronic April 092024 3:15pm Ventral hernia chronic April 3:15pm BPH (benign prostatic hyperplasia) suspected April 27, 2024 3:15pm Cervical myelopathy inactive April 27, 2024 3:15pm [facility] Work Phone: 1(640) 553-456603-13-2025 Evaluation note* Diagnosis Onset Date Resolution Status [...] April 27, 2024 3:15pm Orthostatic hypotension acute [facility] 2024 3:15pm Osteoarthritis acute April 3:15pm Severe dehydration acute April 27, 2024 3:15pm Status post cervical spinal fusion acute April 27, 2024 3:15pm Traumatic brain injury with loss of consciousness acute April 27 3:15pm Urinary incontinence acute [facility] 2024 3:15pm Urine retention acute April 3:15pm Anxiety and depression chronic [facility] 2024 3:15pm Bilateral arm weakness chronic [facility] 2024 3:15pm Chronic left shoulder pain chronic April 27, 2024 3:15pm GERD with esophagitis chronic [facility] 2024 3:15pm History of IBS chronic April [...] resolved April 3:15pm Urinary tract infection resolved 2024 3:15pm Cervical myelopathy inactive April 27, 2024 3:15pm Constipation acute May 25, 2024 12:30pm Fecal incontinence acute May 25, 2024 12:30pm [facility] Work Phone: 1(246) 963-913503-13-2025 Evaluation note* Diagnosis Onset Date Resolution Status [...] acute April 27 3:15pm Urinary incontinence acute 2024 3:15pm Urine retention acute April 3:15pm Anxiety and depression chronic [facility] 2024 3:15pm Bilateral arm weakness chronic [facility] 2024 3:15pm Chronic left shoulder pain chronic April 27, 2024 3:15pm GERD with esophagitis chronic [facility] 2024 3:15pm History of IBS chronic April [...] resolved April 3:15pm Left maxillary fracture resolved 2024 3:15pm Multiple falls resolved April 3:15pm Urinary tract infection resolved [facility] 2024 3:15pm Cervical myelopathy inactive April 27, 2024 3:15pm Constipation acute May 25, 2024 12:30pm Fecal incontinence acute May 25, 2024 12:30pm Status post cervical spinal fusion acute June 01, 2024 3:28pm Cervical myelopathy inactive June 01, 2024 3:28pm [facility] Work Phone: [phone] [id number] Progress note [facility] Medical Records Department [address] [place] [address] Progress Note - Hospitalist 04/20/24 0752 MR#: [id number] Acct: [id number] Name: YAS ROSA Rep #:[id number] : 1940 83 From: Keanu Alfred DO PCP: Dr. Kwabena Menjivar MD Status :ADM IN Location: [place] [address] Reason for Visit Reason for Visit: Diagnoses [...] 83.7 H, Lymph % (Auto) 9.8 L, Coke % (Auto) 5.7, Eos % (Auto) 0.0, [...] (Auto) 73.5 H, Lymph % (Auto) 17.6L, Coke % (Auto) 8.4, Eos % (Auto) 0.1, [...] use of iterative reconstruction technique). Reading Location: [facility]-1 Facial/Sinus 04/19/24 10:42 IMPRESSION: Mildly depressed [...] use of iterative reconstruction technique). Reading Location: [facility]1 Head/Neck CTA 04/19/24 10:54 IMPRESSION: RIGHT CAROTID: Unremarkable LEFT CAROTID: Minimal plaque at the origin of the left internal carotid artery. VERTEBRALS: Unremarkable INTRACRANIAL: Unremarkable. One or more dose reduction techniques were used (e.g., Automated exposure control, adjustment of the mA and/or kV according to patient size, use of iterative reconstruction technique). Reading Location: [facility]1 Chest X-Ray 04/19/24 11:20 IMPRESSION: 1. No visible acute cardiopulmonary findings. 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 Consider outpatient CT chest. 2. Additional description as above. Reading Location: [id number] Brain MRI 04/19/24 15:02 IMPRESSION: 1. No acute intracranial abnormality, specifically no evidence of acute ischemia. 2. Mild atrophy and chronic small-vessel ischemic changes. 3. Acute left facial bone fractures better seen and described on recent facial bone CT. Reading Location: [facility] Cervical Spine MRI 04/19/24 15:02 IMPRESSION: 1. 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 2. Acquired mild to severe multilevel foraminal narrowing. See level by level comments above. 3. 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 Reading Location: [facility] Physical Exam Const alert and no apparent [...] with SCDs Charges/Coding Visit Charges Inpatient E&M: 76147 Subs Hosp L2 04/20/24 1257 Cosigner Signature [...] doing CPR be futile. Procedures Hospitalists Procedures: 71719 Advncd Care Plan 30 Min 04/20/24 1357 Cosigner Signature (if applicable): cc: ~* Signed [facility]03-12-2025 Discharge summary Author Laureano Gallagher [facility] Note Date/Time April 19, 2024 3:2 7pm [facility] Medical Records Department [address] [place] [address] Emergency Department Summary 04/19/24 MR#: [id number] Acct: [id number] Name: YAS ROSA Rep #:[id number] : 1940 83 From: Laureano Colby PCP: Dr. Kwabena Menjivar MD Status :ADM IRINA Location: [address] History of Present Illness Chief Complaint: [...] headache. He does admit to neck pain. [facility] Medical History Irritable bowel syndrome with diarrhea [...] 83.7 H Lymph % (Auto) 9.8 L Coke % (Auto) 5.7 Eos % (Auto) 0.0 [...] use of iterative reconstruction technique). Reading Location: [facility]1 Facial/Sinus 04/19/24 10:42 IMPRESSION: Mildly depressed [...] use of iterative reconstruction technique). Reading Location: [facility]--1 Head/Neck CTA 04/19/24 10:54 IMPRESSION: RIGHT CAROTID: Unremarkable LEFT CAROTID: Minimal plaque at the origin of the left internal carotid artery. VERTEBRALS: Unremarkable INTRACRANIAL: Unremarkable. One or more dose reduction techniques were used (e.g., Automated exposure control, adjustment of the mA and/or kV according to patient size, use of iterative reconstruction technique). Reading Location: [facility] Chest X-Ray 04/19/24 11:20 IMPRESSION: 1. No visible acute cardiopulmonary findings. 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 Consider outpatient CT chest. 2. Additional description as above. Reading Location: [facility] ER EKG Initial EKG: Attestation: I personally reviewed and interpreted this EKG as follows: Comments: Normal sinus rhythm ventricular rate of 69 bpm Management Discussion w/another healthcare provider: Hospitalist (Dr Alfred) and Scrubber Machine Tender (Dr Godinez) Discharge Plan Dx/Rx/DC Orders Clinical Impression: Fall, Closed fracture of left maxillary sinus, Epistaxis, Chronic left shoulderpain, Hypertension, Subconjunctival hemorrhage Disposition Disposition: Acute Care Hospital [facility] NIHSS NIHSS 1a. Level of Consciousness: [...] your Primary Care Provider. Call [facility] ([phone]) or report to the closest Emergency Room. Call 911 if necessary. 04/19/24 1527 <Electronically signed by Laureano Gallagher DO> Cosigner Signature (if applicable): CC: Dr. Kwabena Menjivar MD ~ Signed [facility] Work Phone: 1(659) 632-898503-12-2025 Consult note Author Yas Godinez [facility] Note Date/Time April 19, 2024 3:1 8pm [facility] Medical Records Department [address] [place] [address] Consultation - Surgical 04/19/24 1140 MR#: [id number] Acct: [id number] Name: YAS ROSA Rep #:[id number] : 1940 83 From: Yas Godinez MD PCP: Dr. Kwabena Menjivar MD Status :ADM IRINA Location: [place] [address]- 1 Assessment & Plan Assessment/Plan (1) Maxillary fracture, [...] a few weeks ago with another fall. [facility] Medical History Anxiety Irritable bowel syndrome with [...] 83.7 H, Lymph % (Auto) 9.8 L, Coke % (Auto) 5.7, Eos % (Auto) 0.0, [...] use of iterative reconstruction technique). Reading Location: [facility] Facial/Sinus 04/19/24 10:42 IMPRESSION: Mildly depressed [...] use of iterative reconstruction technique). Reading Location: [facility] Head/Neck CTA 04/19/24 10:54 IMPRESSION: RIGHT CAROTID: Unremarkable LEFT CAROTID: Minimal plaque at the origin of the left internal carotid artery. VERTEBRALS: Unremarkable INTRACRANIAL: Unremarkable. One or more dose reduction techniques were used (e.g., Automated exposure control, adjustment of the mA and/or kV according to patient size, use of iterative reconstruction technique). Reading Location: [facility] Chest X-Ray 04/19/24 11:20 IMPRESSION: 1. No visible acute cardiopulmonary findings. 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 Consider outpatient CT chest. 2. Additional description as above. Reading Location: [id number] Charges/Coding Multi Select Codes Visit Charges Office Visit/Consults: 70350 OV L5 New 60min 04/19/24 1518 <Electronically signed by Yas Godinez MD> Cosigner Signature (if applicable): CC: Dr. Kwabena Menjivar MD~ Signed [facility] Work Phone: 1(847) 578-710203-12-2025 History and physical note Author Keanusonya Alfred [facility] Note Date/Time April 19, 2024 2:0 4pm [facility] Medical Records Department [address] [place] [address] H&P Exam - Hospitalist 04/19/24 1323 MR#: [id number] Acct: [id number] Name: YAS ROSA Rep #:[id number] : 1940 83 From: Keanu Alfred DO PCP: Dr. Kwabena Menjivar MD Status :ADM IRINA Location: [place] [address] HPI - General General Date of Admission: [...] he has not seen the surgeon yet. [facility] Medical History (Updated 04/19/24 @ 13:[address] Keanu Alfred DO) Irritable bowel syndrome with diarrhea Loss of [...] 83.7 H, Lymph % (Auto) 9.8 L, Coke % (Auto) 5.7, Eos % (Auto) 0.0, [...] use of iterative reconstruction technique). Reading Location: [facility] Facial/Sinus 04/19/24 10:42 IMPRESSION: Mildly depressed [...] use of iterative reconstruction technique). Reading Location: [facility] Head/Neck CTA 04/19/24 10:54 IMPRESSION: RIGHT CAROTID: Unremarkable LEFT CAROTID: Minimal plaque at the origin of the left internal carotid artery. VERTEBRALS: Unremarkable INTRACRANIAL: Unremarkable. One or more dose reduction techniques were used (e.g., Automated exposure control, adjustment of the mA and/or kV according to patient size, use of iterative reconstruction technique). Reading Location: [facility] Chest X-Ray 04/19/24 11:20 IMPRESSION: 1. No visible acute cardiopulmonary findings. 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 Consider outpatient CT chest. 2. Additional description as above. Reading Location: [facility] ER Assessment & Plan Assessment/Plan (1) Syncope: PLAN: [...] hospitalist I have informed ED RN and warehouse technician that patient will need to be seen [...] until Wednesday. Charges/Coding Visit Charges Inpatient E&M: 51205 Init Hosp L3 04/19/24 1405 <Electronically signed by Keanu Alfred DO> Cosigner Signature (if applicable): CC: Dr. Kwabena Menjivar MD; Dr. Keanu Alfred DO~ Signed [facility] Work Phone: 1(618) 279-339903-12-2025 Discharge summary [facility] Medical Records Department [address] [place] [address] Emergency Department Summary 04/19/24 MR#: [id number] Acct: [id number] Name: YAS ROSA Rep #:[id number] : 1940 83 From: Laureano Colby PCP: Dr. Kwabena Menjivar MD Status :ADM IRINA Location: [place] [address] HPI History of Present Illness Chief Complaint: [...] headache. He does admit to neck pain. [facility] Medical History Irritable bowel syndrome with diarrhea [...] 83.7 H Lymph % (Auto) 9.8 L Coke % (Auto) 5.7 Eos % (Auto) 0.0 [...] use of iterative reconstruction technique). Reading Location: [facility] Facial/Sinus 04/19/24 10:42 IMPRESSION: Mildly depressed [...] use of iterative reconstruction technique). Reading Location: [facility] Head/Neck CTA 04/19/24 10:54 IMPRESSION: RIGHT CAROTID: Unremarkable LEFT CAROTID: Minimal plaque at the origin of the left internal carotid artery. VERTEBRALS: Unremarkable INTRACRANIAL: Unremarkable. One or more dose reduction techniques were used (e.g., Automated exposure control, adjustment of the mA and/or kV according to patient size, use of iterative reconstruction technique). Reading Location: [facility] Chest X-Ray 04/19/24 11:20 IMPRESSION: 1. No visible acute cardiopulmonary findings. 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 Consider outpatient CT chest. 2. Additional description as above. Reading Location: [id number] EKG Initial EKG: Attestation: I personally reviewed and interpreted this EKG as follows: Comments: Normal sinus rhythm ventricular rate of 69 bpm Management Discussion w/another healthcare provider: Hospitalist (Dr Alfred) and Scrubber Machine Tender (Dr Godinez) Discharge Plan Dx/Rx/DC Orders Clinical Impression: Fall, Closed fracture of left maxillary sinus, Epistaxis, Chronic left shoulderpain, Hypertension, Subconjunctival hemorrhage Disposition Disposition: Acute Care Hospital [facility] NIHSS NIHSS 1a. Level of Consciousness: [...] your Primary Care Provider. Call [facility] ([phone]) or report tothe closest Emergency Room. Call 911 if necessary. 04/19/24 1527 Cosigner Signature (if applicable): CC: Dr. Kwabena Menjivar MD ~ Signed [facility]03-12-2025 Consult note [facility] Medical Records Department [address] [place] [address] Consultation - Surgical 04/19/24 1140 MR#: [id number] Acct: [id number] Name: YAS ROSA Rep #:[id number] : 1940 83 From: Yas Godinez MD PCP: Dr. Kwabena Menjivar MD Status :ADM IRINA Location: [place] [address] Assessment & Plan Assessment/Plan (1) Maxillary fracture, [...] a few weeks ago with another fall. [facility] Medical History Anxiety Irritable bowel syndrome with [...] 83.7 H, Lymph % (Auto) 9.8 L, Coke % (Auto) 5.7, Eos % (Auto) 0.0, [...] use of iterative reconstruction technique). Reading Location: [facility]-1 Facial/Sinus 04/19/24 10:42 IMPRESSION: Mildly depressed [...] use of iterative reconstruction technique). Reading Location: [place] [address] Head/Neck CTA 04/19/24 10:54 IMPRESSION: RIGHT CAROTID: Unremarkable LEFT CAROTID: Minimal plaque at the origin of the left internal carotid artery. VERTEBRALS: Unremarkable INTRACRANIAL: Unremarkable. One or more dose reduction techniques were used (e.g., Automated exposure control, adjustment of the mA and/or kV according to patient size, use of iterative reconstruction technique). Reading Location: [place] [address] Chest X-Ray 04/19/24 11:20 IMPRESSION: 1. No visible acute cardiopulmonary findings. 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 Consider outpatient CT chest. 2. Additional description as above. Reading Location: [id number]-H Charges/Coding Multi Select Codes Visit Charges Office Visit/Consults: 65387 OV L5 New 60min 04/19/24 1518 Cosigner Signature (if applicable): CC: Dr. Kwabena Menjivar MD~ Signed [facility]03-12-2025 History and physical note [facility] Medical Records Department [address] [place] [address] H&P Exam - Hospitalist 04/19/24 1323 MR#: [id number] Acct: [id number] Name: YAS ROSA Rep #:[id number] : 1940 83 From: Keanu Alfred DO PCP: Dr. Kwabena Menjivar MD Status :ADM IRINA Location: [place] [address] HPI - General General Date of Admission: [...] he has not seen the surgeon yet. [facility] Medical History (Updated 04/19/24 @ 13:[address] Keanu Alfred DO) Irritable bowel syndrome with diarrhea Loss of [...] 83.7 H, Lymph % (Auto) 9.8 L, Coke % (Auto) 5.7, Eos % (Auto) 0.0, [...] use of iterative reconstruction technique). Reading Location: [facility]-1 Facial/Sinus 04/19/24 10:42 IMPRESSION: Mildly depressed fracture [...] use of iterative reconstruction technique). Reading Location: [facility]--1 Head/Neck CTA 04/19/24 10:54 IMPRESSION: RIGHT CAROTID: Unremarkable LEFT CAROTID: Minimal plaque at the origin of the left internal carotid artery. VERTEBRALS: Unremarkable INTRACRANIAL: Unremarkable. One or more dose reduction techniques were used (e.g., Automated exposure control, adjustment of the mA and/or kV according to patient size, use of iterative reconstruction technique). Reading Location: [facility]-1 Chest X-Ray 04/19/24 11:20 IMPRESSION: 1. No visible acute cardiopulmonary findings. 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 Consider outpatient CT chest. 2. Additional description as above. Reading Location: [facility] ER Assessment & Plan Assessment/Plan (1) Syncope: PLAN: [...] hospitalist I have informed ED RN and warehouse technician that patient will need to be seen [...] until Wednesday. Charges/Coding Visit Charges Inpatient E&M: 57123 Init Hosp L3 04/19/24 1404 Cosigner Signature (if applicable): CC: Dr. Kwabena Menjivar MD; Dr. Keanu Alfred DO~ Signed [facility]03-12-2025 Radiology Diagnostic study note [facility] Imaging Services [address] [place], [place] [id number] Chest 1 View MR#: [id number] Acct: [id number] Name: YAS ROSA Rep #: [id number] : 1940 M 83 From: Aura Andersen MD PCP: Dr. Kwabena Menjivar MD Status: REG ER Study:Chest 1 View Date of Exam: 5 Exam# [id number] Ordering Dr: Jennie Gallagher DO PROCEDURE: CHEST [...] 2. Additional description as above. Reading Location: [id number] CC: Dr. Kwabena Menjivar MD; Dr. Laureano Gallagher DO ~ Brace Maker: Signed [facility]03-12-2025 Radiology Diagnostic study note [facility] Imaging Services [address] [place] [id number] STROKE CTA Head AND Neck W/Con MR#: [id number] Acct: [id number] Name: YAS ROSA Rep #: [id number] : 1940 M 83 From: Ag Luna MD PCP: Dr. Kwabena Menjivar MD Status: REG ER Study:STROKE CTA Head AND Neck W/Con Date of Exam: 04/19/24 Exam# [id number] Ordering Dr: Jennie Gallagher DO PROCEDURE: STROKE [...] use of iterative reconstruction technique). Reading Location: [place] [address] CC: Dr. Kwabena Menjivar MD; Dr. Laureano Gallagher DO ~ Brace Maker: Signed [facility]03-12-2025 Radiology Diagnostic study note [facility] Imaging Services [address] [place], [place] [address] Sinus/Facial Bone MR#: [id number] Acct: [id number] Name: YAS ROSA Rep #: [id number] : 1940 M 83 From: Ag Luna MD PCP: Dr. Kwabena Menjivar MD Status: REG ER Study:Sinus/Facial Bone Date of Exam: Exam# [id number] Ordering Dr: Jennie Gallagher DO PROCEDURE: SINUS/FACIAL [...] use of iterative reconstruction technique). Reading Location: [place] [address] CC: Dr. Kwabena Menjivar MD; DO Yovanny Delgado Brace Maker: Signed [facility]03-12-2025 Radiology Diagnostic study note [facility] Imaging Services [address] [place], [place] [address] STROKE Brain/Head without Cont MR#: [id number] Acct: [id number] Name: YAS ROSA Rep #: [id number] : 1940 M 83 From: Ag Luna MD PCP: Dr. Kwabena Menjivar MD Status: REG ER Study:STROKE Brain/Head without Cont Date of Exam: 04/19/24 Exam# [id number] Ordering Dr: Jennie Gallagher DO PROCEDURE: STROKE [...] use of iterative reconstruction technique). Reading Location: [place] [address] CC: Dr. Kwabena Menjivar MD; Dr. Laureano Gallagher, DO ~ Brace Maker: Signed [facility]09-06-2023 Discharge summary Author Keanu Holt [facility] October 14, 2022 10:45am Note Date/Time October 14, 2022 10:45am [facility] Physical Therapy [facility] [address] [place] [address] / REHABILITATION SERVICES DISCHARGE SUMMARY MR#: [id number] Acct: [id number] Name: YAS ROSA Rep #: [id number] : 1940 81 From: Keanu Holt DPT, [...] please feel free to call me at [phone]. Thank you for the referral of thispatient. Sincerely, Keanu Holt, [place], OCS, CSCS Balance/Gait/Functional tests Balance/Special Test Scores Oswestry Neck Score: 31 Quick DASH Score: 38.6350 Improvement % Improvement: 10 <Electronically signed by Keanu Holt DPT, OCS, CSCS> 10/14/22 1045 CC: Dr. William Menjivar MD ~ EBG Signed [facility] Work Phone: 1(860) 156-809102-09-2021 NotePatient Outreach (COVAMN) YAS ROSA ([id number]) 1940 M Date Time Provider Department 03/19/20 ROXY KIRK During your visit today, we recorded the [...] Fully Assessed Order(s):SARS-COVID VACCINE 1ST DOSE APPT [33552HMY] Order #: [id number] FUTURE Prescriptions as of 03/19/2020 Sig: ESCITALOPRAM [...] of gastroi*09/16/2010 Letter Text Encounter Status:Closed by ELIO HILL on 03/22/20[facility] Discharge summary Author Harish Baxter [facility] Note Date/Time April 27, 2024 1:5 7pm [facility] Medical Records Department [address] [place] [address] Discharge Summary 04/27/24 1353 MR#: [id number] Acct: [id number] Name: MOEYAS Brigido Rep #:[id number] : 1940 83 From: Harish Schneider PCP: Dr. Kwabena Menjivar MD Status :ADM IN Location: [facility] [id number] Providers Date of Admission: 04/20/24 Date [...] fluid was changed in the morning. Has Reinaldo drain therefore expected drainage. H&H is stable, [...] (Auto) 78.8 H, Lymph % (Auto) 14.3L, Coke % (Auto) 5.8, Eos % (Auto) 0.0, [...] fluoroscopic images were also obtained. Reading Location: [id number]-[id number] Cervical Spine X-Ray 04/26/24 11:05 IMPRESSION: Intraoperative fluoroscopy performed for anterior cervical discectomy and fusionsurgery. 10 fluoroscopic images were also obtained. Reading Location: [id number] Cervical Spine X-Ray 04/27/24 07:00 IMPRESSION: Osteopenia. Interval placement of a metallic fixation plate at the anterior margin of C3-C6. Interval placement of interbody spacer devices at C3-4, C4-5, and C5-6. No acute bony abnormality of the cervical spine. Similar moderate/severe degenerative disc disease at C6-7. [facility] Discharge Diet: Light diet - [...] Self Care Charges/Coding Visit Charges Inpatient E&M: 42959 Disch Hosp >30min 04/27/24 1357 <Electronically signed by Harish Baxter MD> Cosigner Signature (if applicable): CC: Dr. Kwabena Menjivar MD; Dr. Harish Baxter MD~ Signed [facility] Work Phone: Evaluation noteNo assessment information available [facility] Work Phone: Evaluation note* Diagnosis Onset Date [...] 12:44pm Hypertension chronic April 19, 2024 12:44pm [facility] Work Phone: Reason for referral (narrative)No reason for referral information [facility] Work Phone: Summary Purpose Family History No Family History Records Found Relationship Condition Age at Onset Recorded Date/T adia Not Specified Hypertension Unknown father Cardiac disease Unknown Advance Directives No Advanced Directives Records Found Advance Directive Response Recorded Date/ Time Living Will No November 11 8:37am Power of Director Credit Risk No November 11 8:37am Advance Directive Response Recorded Date/ Time Living Will No February 25 11:01am Power of Director Credit Risk No February 26, 2024 11:01am Living Will Yes April 19, 2024 11:02am Power of Director Credit Risk Yes April 19 11:02am Name of Medical Power of Director Credit Risk ? April 19, 2024 11:02am Advance Directive Response Recorded Date/ Time Living Will No February 25 11:01am Do you have a Healthcare Power of Director Credit Risk? No February 26, 2024 11:01am Living Will Yes April 26, 2024 3:54pm Do you have a Healthcare Power of Director Credit Risk? Yes April 26, 2024 3:54pm Name of Medical Power of Director Credit Risk ? April 26, 2024 3:54pm Advance Directive Response Recorded Date/ Time Living Will No February 25 11:01am Do you have a Healthcare Power of Director Credit Risk? No February 26, 2024 11:01am Living Will Yes April 29, 2024 5:19pm Do you have a Healthcare Power of Director Credit Risk? Yes April 29, 2024 5:19pm Name of Medical Power of Director Credit Risk RIVERA ROSA April 29, 2024 5:19pm Living Will Yes April 26, 2024 3:54pm Do you have a Healthcare Power of Director Credit Risk? Yes April 26, 2024 3:54pm Name of Medical Power of Director Credit Risk ? April 26, 2024 3:54pm Advance Directive Response Recorded Date/ Time Living Will Yes April 29, 2024 5:19pm Do you have a Healthcare Power of Director Credit Risk? Yes April 29, 2024 5:19pm Name of Medical Power of Director Credit Risk RIVERA ROSA April 29, 2024 5:19pm Living Will Yes April 26, 2024 3:54pm Do you have a Healthcare Power of Director Credit Risk? Yes April 26, 2024 3:54pm Name of Medical Power of Director Credit Risk ? April 26, 2024 3:54pm Chief Complaint [...] 12:44pm Chronic left shoulder pain April 19 12:44pm Hypertension April 19, 2024 12: 44pm [...] sinus fracture April 20 12:54pm Subconjunctival hemorrhage April 20, 025 12:54pm Syncope April 20, 2024 12: [...] 1:5 3pm SPINCAL CORD COMPRESSION W MYELOPATHY [facility] 2024 3:15pm SPINCAL CORD COMPRESSION W MYELOPATHY [facility] 2024 7:39pm SPINCAL CORD COMPRESSION W MYELOPATHY [facility] 2024 10:15am Arrhythmia April 30, 2024 5:0 6pm SPINCAL CORD COMPRESSION W MYELOPATHY [facility] 2024 12:34pm SPINCAL CORD COMPRESSION W MYELOPATHY [facility] 2024 12:36pm SPINCAL CORD COMPRESSION W MYELOPATHY [facility] 2024 12:27pm SPINCAL CORD COMPRESSION W MYELOPATHY [facility] 2024 11:03am SPINCAL CORD COMPRESSION W MYELOPATHY [facility] 2024 9:56am SPINCAL CORD COMPRESSION W MYELOPATHY Ap ril 2024 10:35am SPINCAL CORD COMPRESSION W MYELOPATHY Ap ril 2024 2:26pm Reason for Visit Admit Date Fall April 20, 2024 12: 54pm Chronic left shoulder pain April 20, 025 12:54pm Hypertension April 20, 2024 12: 54pm Epistaxis April 20, 2024 12: 54pm Subconjunctival hemorrhage April 20, 025 12:54pm Cervical myelopathy April 20, 2024 [...] 3:1 5pm GERD (gastroesophageal reflux disease) M arch 2024 3:15pm Laryngeal edema April 27, 2024 [...] 2024 3:15pm 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 025 3:15pm Cervical stenosis of spinal canal April 27, 2024 3:15pm Chronic left shoulder pain April 27 2 025 3:15pm Foraminal stenosis of cervical region [facility] 2024 3:15pm GERD with esophagitis April 27, 2024 3 :15pm History of IBS April 27, 2024 3:1 5pm Postural dizziness with near syncope Apr 3:15pm Urinary hesitancy April 27, 2024 3:1 [...] 1:5 3pm SPINCAL CORD COMPRESSION W MYELOPATHY [facility] 2024 3:15pm SPINCAL CORD COMPRESSION W MYELOPATHY [facility] 2024 7:39pm SPINCAL CORD COMPRESSION W MYELOPATHY [facility] 2024 10:15am Arrhythmia April 30, 2024 5:0 6pm SPINCAL CORD COMPRESSION W MYELOPATHY [facility] 2024 12:34pm SPINCAL CORD COMPRESSION W MYELOPATHY [facility] 2024 12:36pm SPINCAL CORD COMPRESSION W MYELOPATHY [facility] 2024 12:27pm SPINCAL CORD COMPRESSION W MYELOPATHY [facility] 2024 11:03am SPINCAL CORD COMPRESSION W MYELOPATHY [facility] 2024 9:56am SPINCAL CORD COMPRESSION W MYELOPATHY [facility] 2024 10:35am SPINCAL CORD COMPRESSION W MYELOPATHY [facility] 2024 2:26pm Hospital FU May 25, 2024 12: 30pm Reason for [...] 2024 3:1 5pm GERD (gastroesophageal reflux disease) [facility] 2024 3:15pm Muscle spasm April 27, 2024 [...] 3:1 5pm Postural dizziness with near syncope Apr 3:15pm Urinary hesitancy April 27, 2024 3:1 5pm Ventral hernia April 27, 2024 3:1 5pm BPH (benign prostatic hyperplasia) April 27, 2024 3:15pm Acute blood loss as cause of postoperati ve anemia April 27, 2024 3:15pm Anxiety April 27, 2024 3:1 5pm 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 2 025 3:15pm Cervical stenosis of spinal canal April 27, 2024 3:15pm Foraminal stenosis of cervical region [facility] 2024 3:15pm Laryngeal edema April 27, 2024 [...] 1:5 3pm SPINCAL CORD COMPRESSION W MYELOPATHY [facility] 2024 3:15pm SPINCAL CORD COMPRESSION W MYELOPATHY [facility] 2024 7:39pm SPINCAL CORD COMPRESSION W MYELOPATHY [facility] 2024 10:15am Arrhythmia April 30, 2024 5:0 6pm SPINCAL CORD COMPRESSION W MYELOPATHY [facility] 2024 12:34pm SPINCAL CORD COMPRESSION W MYELOPATHY [facility] 2024 12:36pm SPINCAL CORD COMPRESSION W MYELOPATHY [facility] 2024 12:27pm SPINCAL CORD COMPRESSION W MYELOPATHY [facility] 2024 11:03am SPINCAL CORD COMPRESSION W MYELOPATHY [facility] 2024 9:56am SPINCAL CORD COMPRESSION W MYELOPATHY [...] 3:1 5pm GERD (gastroesophageal reflux disease) [facility] 2024 3:15pm Muscle spasm April 27, 2024 [...] 3:1 5pm Postural dizziness with near syncope [facility] 2024 3:15pm Urinary hesitancy April 27, [...] 3:15pm Foraminal stenosis of cervical region [facility] 2024 3:15pm Laryngeal edema April 27, 2024 [...] 1:5 3pm SPINCAL CORD COMPRESSION W MYELOPATHY [facility] 2024 3:15pm SPINCAL CORD COMPRESSION W MYELOPATHY [facility] 2024 7:39pm SPINCAL CORD COMPRESSION W MYELOPATHY [facility] 2024 10:15am Arrhythmia April 30, 2024 5:0 6pm SPINCAL CORD COMPRESSION W MYELOPATHY [facility] 2024 12:34pm SPINCAL CORD COMPRESSION W MYELOPATHY [facility] 2024 12:36pm SPINCAL CORD COMPRESSION W MYELOPATHY [facility] 2024 12:27pm SPINCAL CORD COMPRESSION W MYELOPATHY [facility] 2024 11:03am SPINCAL CORD COMPRESSION W MYELOPATHY [facility] 2024 9:56am SPINCAL CORD COMPRESSION W MYELOPATHY [...] 1:5 3pm SPINCAL CORD COMPRESSION W MYELOPATHY [facility] 2024 3:15pm SPINCAL CORD COMPRESSION W MYELOPATHY [facility] 2024 7:39pm SPINCAL CORD COMPRESSION W MYELOPATHY [facility] 2024 10:15am Arrhythmia April 30, 2024 5:0 6pm SPINCAL CORD COMPRESSION W MYELOPATHY [facility] 2024 12:34pm SPINCAL CORD COMPRESSION W MYELOPATHY [facility] 2024 12:36pm SPINCAL CORD COMPRESSION W MYELOPATHY [facility] 2024 12:27pm SPINCAL CORD COMPRESSION W MYELOPATHY [facility] 2024 11:03am SPINCAL CORD COMPRESSION W MYELOPATHY [facility] 2024 9:56am SPINCAL CORD COMPRESSION W MYELOPATHY [...] 1:5 3pm SPINCAL CORD COMPRESSION W MYELOPATHY [facility] 2024 3:15pm SPINCAL CORD COMPRESSION W MYELOPATHY [facility] 2024 7:39pm SPINCAL CORD COMPRESSION W MYELOPATHY [facility] 2024 10:15am Arrhythmia April 30, 2024 5:0 6pm SPINCAL CORD COMPRESSION W MYELOPATHY [facility] 2024 12:34pm SPINCAL CORD COMPRESSION W MYELOPATHY [facility] 2024 12:36pm SPINCAL CORD COMPRESSION W MYELOPATHY [facility] 2024 12:27pm SPINCAL CORD COMPRESSION W MYELOPATHY [facility] 2024 11:03am SPINCAL CORD COMPRESSION W MYELOPATHY [facility] 2024 9:56am SPINCAL CORD COMPRESSION W MYELOPATHY [...] 1:5 3pm SPINCAL CORD COMPRESSION W MYELOPATHY [facility] 2024 3:15pm SPINCAL CORD COMPRESSION W MYELOPATHY [facility] 2024 7:39pm SPINCAL CORD COMPRESSION W MYELOPATHY [facility] 2024 10:15am Arrhythmia April 30, 2024 5:0 6pm SPINCAL CORD COMPRESSION W MYELOPATHY [facility] 2024 12:34pm SPINCAL CORD COMPRESSION W MYELOPATHY [facility] 2024 12:36pm SPINCAL CORD COMPRESSION W MYELOPATHY [facility] 2024 12:27pm SPINCAL CORD COMPRESSION W MYELOPATHY [facility] 2024 11:03am SPINCAL CORD COMPRESSION W MYELOPATHY [facility] 2024 9:56am SPINCAL CORD COMPRESSION W MYELOPATHY [...] section and content) DATE CREATED AUTHOR 08/04/2017 [facility] ([place]) DATE CREATED AUTHOR AUTHOR'S ORGANIZ ATION 03/11/2021 [facility] DATE CREATED AUTHOR AUTHOR'S ORGANIZ ATION 08/05/2024 [facility] Care Teams (unrecognized sec tion and [...] rt: April 25, 2024 Ana Rosa Howard COAL GETTER, COAL GETTER-C Attending Provider Active Start: April 25, 2024 [...] Start: May 01, 2024 Dr. Corazon Wright , DO Admit Provider Active Start: May 01, 2024 Dr. Corazon Wright , DO Attending Provider Act deborah Start: May 01, 2024 Dr. Corazon Wright , DO Other Provider Active Start: May 01, 2024 Team Status: Active Member Role Status Dates Dr. Kwabena Menjivar MD Primary Care Provider Acti ve Start: May 02, 2024 Dr. Corazon Wright , DO Admit Provider Active Start: May 02, 2024 Dr. Corazon Wright , DO Attending Provider Act deborah Start: May 02, 2024 Dr. Corazon Wright , DO Other Provider Active Start: May 02, 2024 Team Status: Active Member Role Status Dates Dr. Kwabena Menjivar MD Primary Care Provider Acti ve Start: May 03, 2024 Dr. Corazon Wright , DO Admit Provider Active Start: May 03, 2024 Dr. Corazon Wright , DO Attending Provider Act deborah Start: May 03, 2024 Dr. Corazon Wright , DO Other Provider Active Start: May 03, 2024 Team Status: Active Member Role Status Dates Dr. Kwabena Menjivar MD Primary Care Provider Acti ve Start: May 05, 2024 Dr. Corazon Wright , DO Admit Provider Active Start: May 05, 2024 Dr. Corazon Wright , DO Attending Provider Act deborah Start: May 05, 2024 Dr. Corazon Wright , DO Other Provider Active Start: May 05, [...] ve Start: May 09, 2024 Dr. Corazon Wrgiht DO Admit Provider Active Start: May 09, 2024 Dr. Corazon Wright DO Attending Provider Act deborah Start: May 09, 2024 Dr. Corazon Wright DO Other Provider Active Start: May 09, 2024 [...] Provider Acti ve Start: May 22, 2024 Keevn KIRKPATRICK MD Attending Provider Active Start: May [...] Start: April 21, 2024 Dr. Laureano Gallagher , Emergency Provider Active Start: April 21, 2024 Dr. Keanu Alfred , Admit Provider Active Star t: April 21, 2024 Dr. Keanu Alfred DO Other Provider Active Star t: April 21, 2024 Dr. Yas Goidnez MD Other Provider Active Star t: April 21, 2024 Dr. Ciro Diego MD Attending Provider Active Start: April 21, 2024 Dr. Ciro Diego MD Other Provider Active Star t: April 21, 2024 Team Status: Inactive Member Role Status Dates Dr. Kwabena Menjivar MD Primary Care Provider Acti ve Start: May 22, 2024 End: May 22, 2024 Angelika Nowak NP COAL GETTER-C Attending Provider Active Start: May 22, 2024 End: May 22, 2024 Team Status: Active Member Role Status Dates Dr. Kwabena Menjivar MD Primary Care Provider Acti ve Start: May 25, 2024 RUSS HiltonC Attending Provider Active Start: May 25, 2024 [...] 2024 End: May 30, 2024 Angelika Nowak NP COAL GETTER-C Attending Provider Active Start: May 30, 2024 [...] BE BASED ON THE PRIMARY CLINICAL RECORDS. [employer] provides no warranty or guarantee of the accuracy or completeness of information in this document.
[2024-08-05 18:07] LABS: Troponin T High Sens 4 HR 36 ng/L (<=22)
[2024-08-05] MEDS: MELATONIN 10 MG TABLET PO (21:16)
[2024-08-05] MEDS: Senna/Docusate Sodium 1 Tablet 2 TABLET PO (21:16)
[2024-08-05] MEDS: 0.9% Saline Lock 10 ML Syringe IV (21:16)
[2024-08-06 05:15] VITALS: BP 142/77; PULSE 65; RESP 17; TEMP 36.7; O2SAT 96
[2024-08-06 05:23] LABS: Hematocrit 34.8 % (40-54); Hemoglobin 11.6 g/dL (13.0-16.5); Immature Granulocytes Count 0.020 X10^3/uL (0.0-0.0); Mean Corp Hgb Conc 33.3 g/dL (32-36); Mean Corpuscular Volume 86.8 fL (80-94); Mean Platelet Vol. 8.6 fl (6.2-12.0); NRBC Flagged by Analyzer 0 % (0-5); Platelet Count 186 K/mm3 (150-450); RBC Distribution Width CV 12.8 % (11.6-14.6); RBC Distribution Width SD 40.7 fl (35.1-43.9); Red Blood Count 4.01 M/mm3 (4.6-6.2); White Blood Count 7.0 K/mm3 (4.4-11.0)
[2024-08-06 06:17] LABS: Anion Gap 10 (5-15); BUN 14 mg/dL (4-19); BUN/Creat Ratio 15.7 RATIO (10-20); CORTISOL AM 16.30 ug/dL (6.02-18.40); Calcium,Total 8.7 mg/dL (7.6-11.0); Carbon Dioxide 23.8 mmol/L (21.0-32.0); Chloride 106 mmol/L (98-108); Estimated Creatinine Clearance 60.55 ml/min (50-250); Glucose 93 mg/dL (70-99); Potassium 4.1 mmol/L (3.3-5.1)
[2024-08-06] MEDS: Senna/Docusate Sodium 1 Tablet 2 TABLET PO (07:34)
[2024-08-06] MEDS: buPROPion (XL) 150 MG TABLET.XL PO (07:35)
[2024-08-06 08:15] VITALS: BP 128/98; BP 142/126; BP 144/76
[2024-08-06 08:16] VITALS: BP 144/76; PULSE 68; RESP 16; TEMP 36.8; O2SAT 97
[2024-08-06 11:16] VITALS: BP 133/69; PULSE 66; RESP 16; TEMP 36.8; O2SAT 96
[2024-08-06] MEDS: Ensure Plus High Protein 120 ML LIQUID PO ×3 (13:59→20:57)
[2024-08-06 15:05] VITALS: BP 112/49; PULSE 72; RESP 16; TEMP 36.7; O2SAT 97
--- NOTE | 2024-08-06 15:45 | PCM.PN.HOSP ---
Reason for Visit Reason for Visit: Diagnoses Dizziness and giddiness (08/06/24) Weakness (08/06/24) Subjective Subjective Patient was seen and examined today, he is a very poor informant, at first he told me he had not ever been in a fci and it turns out he was in a fci from May 20 of this year to July 14 of this year. Patient had cervical fusion here at [facility]-the surgery was performed on 04/26/2024 and it was a C3-6 ACDF. Following this, the patient went to the rehab unit at [facility] on 04/28/2024 and was discharged from the rehab unit on 05/20/2024 with admission to [facility] half-way facility. Information obtained from the patient's ex- is that the patient is unable to care for himself at home. He is estranged from his children and she is the main contact. I discussed his medical care with her several times today. I am concerned that the patient's deficits may be permanent and he will need more than 2 to 3 weeks in a skilled facility. He may be eligible for Medicaid, I will talk to case management tomorrow about this. Objective Data Objective Data Vital Signs: Vital Signs Temp Pulse Resp BP Pulse Ox O2 Del Method 98.1 F 72 16 112/49 L 97 Room Air 08/06/24 15:05 08/06/24 15:05 08/06/24 15:05 08/06/24 15:05 08/06/24 15:05 08/06/24 15:05 Oxygen Delivery Method Room Air Weight: 71.668 kg Body Mass Index (BMI) 24.0 Intake & Output: Intake and Output for Last 24 Hours 08/04/24 08/05/24 08/06/24 23:59 23:59 23:59 Intake Total 2350 / 2350 550 / 550 Output Total 700 / 700 Balance 2350 / 2350 -150 / -150 Lab / Micro Data 08/06/24 04:58 08/06/24 04:58 Labs: Laboratory Results - last 24 hr 08/05/24 16:07: Troponin T Hi Sens 4Hr 36 H 08/06/24 04:58: WBC 7.0, RBC 4.01 L, Hgb 11.6 L, Hct 34.8 L, MCV 86.8, MCH 28.9, MCHC 33.3, RDW Std Deviation 40.7, RDW Coeff of Delia 12.8, Plt Count 186, MPV 8.6, Immature Gran % (Auto) 0.300, Neut % (Auto) 48.2, Lymph % (Auto) 36.2, Camp % (Auto) 10.5 H, Eos % (Auto) 4.2, Baso % (Auto) 0.6, Absolute Neuts (auto) 3.4, Absolute Lymphs (auto) 2.53, Nucleated RBC % 0, Sodium 140, Potassium 4.1, Chloride 106, Carbon Dioxide 23.8, Anion Gap 10, BUN 14, Creatinine 0.91, Estim Creat Clear Calc 60.55, Est GFR (MDRD) Non-Af 85, BUN/Creatinine Ratio 15.7, Glucose 93, Calcium 8.7, Cortisol AM Sample 16.30 Physical Exam Const alert, oriented x3 and no apparent distress General Appearance: cooperative, well kempt and well developed Orientation / Consciousness: awake, oriented to person, oriented to place and oriented to time HEENT normocephalic, head/scalp atraumatic and moist oral mucous membranes Eyes PERRL, EOMs intact bilaterally and conjunctivae normal Neck supple, no JVD, thyroid normal and no carotid bruits General: trachea midline Resp normal respiratory effort, no retractions, no use of accessory muscles and clear to auscultation bilaterally Auscultation: Negative for rales, rhonchi or wheezes Cardio regular rate, regular rhythm, no murmurs, no rub and no gallops GI normal to inspection, nondistended, normoactive bowel sounds, soft to palpation, non-tender and non-distended Extremity no clubbing, cyanosis or edema Skin no rashes or lesions noted General Skin Exam: no breakdown Neuro oriented x3, CN's II-XII intact bilaterally, moves all extremities, no focal motor deficits and no sensory deficits noted Sensorium / Orientation: awake and alert Speech: speech normal Psych Psych Narrative: Patient is a poor informant, he has blunted affect Mood & Affect: depressed Assessment & Plan Assessment/Plan (1) Generalized weakness: PLAN: Plan 1. Acute on chronic debility-patient will be seen by PT and OT, he will need placement in a half-way facility. #2 orthostatic hypotension with periods of lightheadedness-patient is chronically on midodrine, I will restart this medication at a lower dose to see if it will help #3 degenerative disc disease of the cervical spine-status post cervical fusion 04/26/2024-continue PT and OT #4 chronic depression-patient will remain on Remeron at bedtime, he is also on Wellbutrin. Total clinical time spent by myself addressing the patient's medical issues, reviewing all of his data, and collaborating with patient's care team: 35 minutes Charges/Coding Visit Charges Inpatient E&M: 62610 Subs Hosp L2
[2024-08-06 20:48] VITALS: BP 158/89; PULSE 63; RESP 18; TEMP 36.6; O2SAT 97
[2024-08-07 04:17] VITALS: BP 154/84; PULSE 66; RESP 18; TEMP 37.1; O2SAT 97
[2024-08-07 08:10] VITALS: BP 168/91; PULSE 65; RESP 18; TEMP 36.8; O2SAT 97
[2024-08-07] MEDS: buPROPion (XL) 150 MG TABLET.XL PO (08:15)
[2024-08-07] MEDS: 0.9% Saline Lock 10 ML Syringe IV (09:51)
--- NOTE | 2024-08-07 11:15 | CASEMGMT ---
Discharge Planning SNF referral sent to [facility] with accepted. SW updated Sheron Kiser DC Planning Asst.
[2024-08-07 11:20] VITALS: BP 99/66; PULSE 65; RESP 18; TEMP 36.3; O2SAT 92
--- NOTE | 2024-08-07 13:27 | CASEMGMT ---
Social Work- SW met with pt to discuss discharge planning. SW introduced self and role. Pt confirmed that he would like [facility] as [facility] and declined a SNF list. SW notified DCA of referral request. Pt accepted at [facility]. Pt updated. [facility] remains available to follow. JAVIER Pimentel
[2024-08-07 16:50] VITALS: BP 131/74; PULSE 61; RESP 18; TEMP 36.3; O2SAT 97
[2024-08-07] MEDS: Ensure Plus High Protein 120 ML LIQUID PO ×2 (16:52→21:47)
[2024-08-07 20:18] VITALS: BP 161/84; PULSE 60; RESP 16; TEMP 36.9; O2SAT 98
[2024-08-08 04:27] VITALS: BP 156/78; PULSE 60; RESP 18; TEMP 36.8; O2SAT 96
--- NOTE | 2024-08-08 07:55 | PN.HOSP_ITS ---
Reason for Visit Reason for Visit: Diagnoses Dizziness and giddiness (08/06/24) Weakness (08/06/24) Objective Data Objective Data Vital Signs: Vital Signs Temp Pulse Resp BP Pulse Ox O2 Del Method 98.3 F 60 18 156/78 H 96 Room Air 08/08/24 04:27 08/08/24 04:27 08/08/24 04:27 08/08/24 04:27 08/08/24 04:27 08/08/24 04:27 Oxygen Delivery Method Room Air Weight: 71.668 kg Body Mass Index (BMI) 24.0 Intake & Output: Intake and Output for Last 24 Hours 08/06/24 08/07/24 08/08/24 23:59 23:59 23:59 Intake Total 850 / 850 600 / 600 1100 / 1100 Output Total 700 / 700 300 / 300 Balance 150 / 150 600 / 600 800 / 800 Lab / Micro Data 08/06/24 04:58 08/06/24 04:58 Assessment & Plan Assessment/Plan (1) Generalized weakness: PLAN: Plan 1. Acute on chronic debility-patient will be seen by PT and OT, he will need placement in a [place] [facility] facility. #2 orthostatic hypotension with periods of lightheadedness-patient is chronically on midodrine, I will restart this medication at a lower dose to see if it will help #3 degenerative disc disease of the cervical spine-status post cervical fusion 04/26/2024-continue PT and OT #4 chronic depression-patient will remain on Remeron at bedtime, he is also on Wellbutrin. Total clinical time spent by myself addressing the patient's medical issues, reviewing all of his data, and collaborating with patient's care team: 35 minutes
--- NOTE | 2024-08-08 07:55 | PCM.PN.HOSP ---
Reason for Visit Reason for Visit: Diagnoses Dizziness and giddiness (08/06/24) Weakness (08/06/24) Subjective Subjective Patient is an 83-year-old male admitted with significant debility. Patient had apparently undergone multilevel cervical fusion in April 2024. He has since continued to develop progressive generalized weakness Objective Data Objective Data Vital Signs: Vital Signs Temp Pulse Resp BP Pulse Ox O2 Del Method 98.3 F 60 18 156/78 H 96 Room Air 08/08/24 04:27 08/08/24 04:27 08/08/24 04:27 08/08/24 04:27 08/08/24 04:27 08/08/24 04:27 Oxygen Delivery Method Room Air Weight: 71.668 kg Body Mass Index (BMI) 24.0 Intake & Output: Intake and Output for Last 24 Hours 08/06/24 08/07/24 08/08/24 23:59 23:59 23:59 Intake Total 850 / 850 600 / 600 1100 / 1100 Output Total 700 / 700 300 / 300 Balance 150 / 150 600 / 600 800 / 800 Lab / Micro Data 08/06/24 04:58 08/06/24 04:58 Physical Exam Narrative GENERAL: cooperative HEENT: Atraumatic; normocephalic EYES; Anicteric, Normal Conjunctiva NECK; supple, normal thyroid, RESPIRATORY: Diminished to auscultation CARDIOVASCULAR: Regular S1 S2, GI: soft, normoactive bowel sounds, : No Renal angle tenderness; EXTREMITIES: No edema, no clubbing, MUSCULOSKELETAL: no muscle wasting NEURO: Awake; no lateralizing signs. SKIN: No Rash PSYCH; Flat affect Assessment & Plan Assessment/Plan (1) Generalized weakness: PLAN: Plan Patient is an 83-year-old male admitted with significant debility. Patient had apparently undergone multilevel cervical fusion in April 2024. He has since continued to develop progressive generalized weakness 1. Physical deconditioning ? Requested for PT OT eval and social sciences research scientist to assist with discharge planning. Plan is for patient to be discharged on 08/09/2024 2. Orthostatic hypotension ? This was felt to be contributing to patient's symptoms patient was placed on midodrine for symptom management 3. Degenerative joint disease ? With history of cervical fusion on 04/26/2024 4. Depression ? Patient is on bupropion as well as Remeron at night 5.DVT prophylaxis ? On enoxaparin Time spent in the patient's overall evaluation,decision-making process, review of diagnostic data, adjustment of management, discussion with other providers, nursing nursing and ancillary staff involved in patient's care documentation, 36 Minutes Charges/Coding Visit Charges Inpatient E&M: 75669 Subs Hosp L2
[2024-08-08 08:15] VITALS: BP 162/77; PULSE 60; RESP 18; TEMP 36.6; O2SAT 96
[2024-08-08] MEDS: buPROPion (XL) 150 MG TABLET.XL PO (09:23)
[2024-08-08] MEDS: Senna/Docusate Sodium 1 Tablet 2 TABLET PO (09:23)
[2024-08-08 11:15] VITALS: BP 146/93; PULSE 51; RESP 18; TEMP 36.6; O2SAT 98
[2024-08-08 16:10] VITALS: BP 131/78; PULSE 56; RESP 18; TEMP 36.7; O2SAT 96
[2024-08-08 20:30] VITALS: BP 157/58; PULSE 62; RESP 15; TEMP 36.9; O2SAT 97
[2024-08-08] MEDS: Ensure Plus High Protein 120 ML LIQUID PO (21:37)
[2024-08-09 04:00] VITALS: BP 152/74; PULSE 60; RESP 15; TEMP 36.7; O2SAT 97
--- NOTE | 2024-08-09 07:21 | DS.PCM_ITS ---
Providers Date of Admission: 08/06/24 Date of Discharge: 08/09/24 Primary Care Physician: Dr. Kevin Menjivar MD Reason For Visit: GENERALIZED WEAKNESS, ORTHOSTATIC POSITIVE Diagnosis Discharge Diagnosis (1) Generalized weakness: Status: Acute Code(s): R53.1 - Weakness Plan Patient is an 83-year-old male admitted with significant debility. Patient had apparently undergone multilevel cervical fusion in April 2024. He has since continued to develop progressive generalized weakness 1. Physical deconditioning ? Requested for PT OT eval and health social work professor to assist with discharge planning. 08/09/2024; patient was discharged on 03/12/2024 after he met his qualifying days 2. Orthostatic hypotension ? This was felt to be contributing to patient's symptoms patient was placed on midodrine for symptom management ? 08/09/2024; patient orthostatic hypotension resolved had been started on midodrine during his hospital stay discontinued on discharge 3. Degenerative joint disease ? With history of cervical fusion on 04/26/2024 4. Depression ? Patient is on bupropion as well as Remeron at night 5.DVT prophylaxis ? On enoxaparin Time spent in the patient's overall evaluation,decision-making process, review of diagnostic data, adjustment of management, discussion with other providers, nursing nursing and ancillary staff involved in patient's care documentation, 35 Minutes Medications at Discharge Home Medications sennosides 8.6 mg-docusate sodium 50 mg tablet (Stimulant Laxative Plus) 2 tab PO BID laxative #0 tabs 04/27/24 food supplemt, lactose-reduced 0.08 gram-1.5 kcal/mL oral liquid (Ensure Plus High Protein) 120 ml PO 4X/DAY #0 mL 05/18/24 gabapentin 100 mg capsule 100 mg PO BIDCM #0 caps 05/18/24 midodrine 5 mg tablet 10 mg (2 x 5 mg) PO 0700,1100,1500 #0 tabs 05/18/24 mirtazapine 15 mg tablet 15 mg PO QHS #0 tabs 05/18/24 pantoprazole 40 mg tablet,delayed release 40 mg PO BID #0 tabs 05/18/24 bupropion HCl 150 mg 24 hr tablet, extended release 150 mg PO DAILY depression 08/05/24 acetaminophen 325 mg tablet 650 mg (2 x 325 mg) PO Q6H PRN PRN Pain 1-10 Or Fever >100.7 #0 tabs 08/09/24 albuterol sulfate 2.5 mg/3 mL (0.083 %) solution for nebulization 2.5 mg (3 mL) inhalation Q2H PRN PRN SOB &/OR WHEEZING #0 mL 08/09/24 duloxetine 30 mg capsule,delayed release 30 mg PO DAILY #0 caps 08/09/24 food supplemt, lactose-reduced 0.08 gram-1.5 kcal/mL oral liquid (Ensure Plus High Protein) 120 ml PO 4X/DAY #0 mL 08/09/24 melatonin 10 mg sublingual tablet 10 mg PO QHS PRN PRN Insomnia #0 tabs 08/09/24 Physical Exam Narrative GENERAL: cooperative HEENT: Atraumatic; normocephalic EYES; Anicteric, Normal Conjunctiva NECK; supple, normal thyroid, RESPIRATORY: Diminished to auscultation CARDIOVASCULAR: Regular S1 S2, GI: soft, normoactive bowel sounds, : No Renal angle tenderness; EXTREMITIES: No edema, no clubbing, MUSCULOSKELETAL: no muscle wasting NEURO: Awake; no lateralizing signs. SKIN: No Rash PSYCH; Flat affect Weight / BMI Weight Weight: 71.668 kg Body Mass Index (BMI) 24.0 ABG / Lab / Microbiology Data 08/06/24 04:58 08/06/24 04:58 D/C Instructions Discharge Diet: No restrictions Discharge Activity: Return to Normal Activity Call your doctor if you observe: Fever of 101 or Higher, Shortness of breath, Fainting spells and Chest pain DC O2, CPAP, BIPAP Needs Home O2 Discharge instructions: No Meaningful Use Info Meaningful Use Meaningful Use Diagnoses (Choose all that apply): None applicable Ischemic Stroke Statin Dosing Therapy Reference: STATIN DOSE THERAPY REFERENCE: * Patients > 75 years receive moderate or high dose statin therapy. * Patients 75 years or YOUNGER should receive HIGH intensity statin dose unless contraindicated. You will be required to document reason for non-treatment if statin daily dose does not meet guidelines. HIGH DOSE STATIN THERAPY DAILY Atorvastatin > than or = to 40 mg Rosuvastatin > than or = to 20 mg Amlodipine + Atorvastatin > than or = to 2.5/40 mg Ezetimibe + Simvastatin 10/80 mg Simvastatin 80mg Discharge Plan Admission Admit Date/Time: 06/29/25 13:22 Attending Provider: Jacoby Mendoza Primary Care Provider: Kevin Menjivar Consulting Providers: Yu Bradley; Keanu Collier Discharge Orders/Prescriptions Prescriptions: New acetaminophen 325 mg Tablet 650 mg PO Q6H PRN PRN (Reason: Pain 1-10 Or Fever >100.7) Qty: 0 0RF albuterol sulfate 2.5 mg /3 mL (0.083 %) Solution For Nebulization 2.5 mg inhalation Q2H PRN PRN (Reason: SOB &/OR WHEEZING) Qty: 0 0RF duloxetine 30 mg Capsule,Delayed Release(Dr/Ec) 30 mg PO DAILY Qty: 0 0RF melatonin 10 mg Tablet, Sublingual 10 mg PO QHS PRN PRN (Reason: Insomnia) Qty: 0 0RF Ensure Plus High Protein 0.08 gram-1.5 kcal/mL Liquid 120 ml PO 4X/DAY Qty: 0 0RF Continued midodrine 5 mg Tablet 10 mg PO 0700,1100,1500 Qty: 0 0RF pantoprazole 40 mg Tablet,Delayed Release (Dr/Ec) 40 mg PO BID Qty: 0 0RF mirtazapine 15 mg Tablet 15 mg PO QHS Qty: 0 0RF gabapentin 100 mg Capsule 100 mg PO BIDCM Qty: 0 0RF Ensure Plus High Protein 0.08 gram-1.5 kcal/mL Liquid 120 ml PO 4X/DAY Qty: 0 0RF sennosides-docusate sodium [Stimulant Laxative Plus] 8.6-50 mg Tablet 2 tab PO BID Qty: 0 0RF bupropion HCl 150 mg tablet extended release 24 hr 150 mg PO DAILY Referrals / Follow Up: Kevin Menjivar MD [Primary Care Provider] - Disposition Disposition (needs filled in before D/C Order can be placed): Nursing Home Facility Charges/Coding Visit Charges Inpatient E&M: 85046 Disch Hosp >30min
[2024-08-09 07:57] VITALS: PULSE 73
[2024-08-09 08:00] VITALS: BP 108/63; PULSE 73; RESP 18; TEMP 36.6; O2SAT 95
--- NOTE | 2024-08-09 08:29 | TREXTCAR_ITS ---
Diet Diet Order/Speech Therapy: INPATIENT Hospital Diet / Speech Therapy Order(s) 08/05/24 16:27 Diet: Regular - General Food consistency:: Mechanical (Minced/Moist) Liquid Consistency:: Regular/Thin Diet Comments: Send strawberry ensure on meal trays Routine Orders/Code Status Code Status: DNRCC-A DC O2, CPAP, BIPAP needs Home O2 Discharge instructions: No Wound(s) carlos manuel lower leg: Wound Type: Abrasion Therapies Physical Therapy: Eval and Treat Occupational Therapy: Eval and Treat Problem/Diagnosis (1) Generalized weakness: Status: Acute Code(s): R53.1 - Weakness Plan Patient is an 83-year-old male admitted with significant debility. Patient had apparently undergone multilevel cervical fusion in April 2024. He has since continued to develop progressive generalized weakness 1. Physical deconditioning ? Requested for PT OT eval and social insurance specialist to assist with discharge planning. 08/09/2024; patient was discharged on 03/12/2024 after he met his qualifying days 2. Orthostatic hypotension ? This was felt to be contributing to patient's symptoms patient was placed on midodrine for symptom management ? 08/09/2024; patient orthostatic hypotension resolved had been started on midodrine during his hospital stay discontinued on discharge 3. Degenerative joint disease ? With history of cervical fusion on 04/26/2024 4. Depression ? Patient is on bupropion as well as Remeron at night 5.DVT prophylaxis ? On enoxaparin Time spent in the patient's overall evaluation,decision-making process, review of diagnostic data, adjustment of management, discussion with other providers, nursing nursing and ancillary staff involved in patient's care documentation, 35 Minutes Allergies/Procedures Done in Hospital Allergies No Known Allergies Allergy (Verified 08/05/24 11:37) Type of Care/Length of Stay Estimated LOS: Convalescent Care Less Than 30 days Type of Care Needed: Skilled Rehab Potential: Good Prognosis: Good Additional Orders/Day of Discharge Day of Discharge: 08/09/24 Dietary and Speech Recommendations Dietitian Recommendations/Changes: Continue Regular diet with texture/consistency per [employer] to optimize oral intakes. Will order 120mL Ensure Plus High Protein 4x daily to provide supplemental energy and to promote weight maintainence. Discharge Plan Admission Admit Date/Time: 08/06/24 13:22 Attending Provider: Jacoby Mendoza Primary Care Provider: Kevin Menjivar Consulting Providers: Yu Bradley; Keanu Collier Discharge Orders/Prescriptions Prescriptions: New acetaminophen 325 mg Tablet 650 mg PO Q6H PRN PRN (Reason: Pain 1-10 Or Fever >100.7) Qty: 0 0RF albuterol sulfate 2.5 mg /3 mL (0.083 %) Solution For Nebulization 2.5 mg inhalation Q2H PRN PRN (Reason: SOB &/OR WHEEZING) Qty: 0 0RF duloxetine 30 mg Capsule,Delayed Release(Dr/Ec) 30 mg PO DAILY Qty: 0 0RF melatonin 10 mg Tablet, Sublingual 10 mg PO QHS PRN PRN (Reason: Insomnia) Qty: 0 0RF Ensure Plus High Protein 0.08 gram-1.5 kcal/mL Liquid 120 ml PO 4X/DAY Qty: 0 0RF Continued midodrine 5 mg Tablet 10 mg PO 0700,1100,1500 Qty: 0 0RF pantoprazole 40 mg Tablet,Delayed Release (Dr/Ec) 40 mg PO BID Qty: 0 0RF mirtazapine 15 mg Tablet 15 mg PO QHS Qty: 0 0RF gabapentin 100 mg Capsule 100 mg PO BIDCM Qty: 0 0RF Ensure Plus High Protein 0.08 gram-1.5 kcal/mL Liquid 120 ml PO 4X/DAY Qty: 0 0RF sennosides-docusate sodium [Stimulant Laxative Plus] 8.6-50 mg Tablet 2 tab PO BID Qty: 0 0RF bupropion HCl 150 mg tablet extended release 24 hr 150 mg PO DAILY Referrals / Follow Up: Kevin Menjivar MD [Primary Care Provider] - Disposition Disposition (needs filled in before D/C Order can be placed): Intermediate Facility
--- NOTE | 2024-08-09 08:50 | CASEMGMT ---
Social Work Per physician, pt is ready for discharge today to [facility]. 7000 exemption form completed in [facility]. DC mri assistant updated and to completed dischrage. Disposition: [facility], skilled level of care under convalescent stay JAVIER Lopez
--- NOTE | 2024-08-09 09:13 | CASEMGMT ---
Discharge Planning Discharge orders, signed med list, and transport time sent to [facility]. Physicians will transport pt by wheelchair at 12p. Nursing, SW, pt, and his EC (Naa Peterson) updated. Sheron Kiser DC Planning Asst.
--- NOTE | 2024-08-09 09:30 | PHA.DC.MR.R ---
Pharmacy CT Med Reconciliation Pharmacy Service has performed discharge medication reconciliation for this patient. D/C to [facility]. The patient's discharge medication list was reviewed for discrepancies and discrepancies were resolved. Medications at Discharge Home Medications sennosides 8.6 mg-docusate sodium 50 mg tablet (Stimulant Laxative Plus) 2 tab PO BID laxative #0 tabs 04/27/24 gabapentin 100 mg capsule 100 mg PO BIDCM #0 caps 05/18/24 midodrine 5 mg tablet 10 mg (2 x 5 mg) PO 0700,1100,1500 #0 tabs 05/18/24 mirtazapine 15 mg tablet 15 mg PO QHS #0 tabs 05/18/24 pantoprazole 40 mg tablet,delayed release 40 mg PO BID #0 tabs 05/18/24 bupropion HCl 150 mg 24 hr tablet, extended release 150 mg PO DAILY depression 08/05/24 acetaminophen 325 mg tablet 650 mg (2 x 325 mg) PO Q6H PRN PRN Pain 1-10 Or Fever >100.7 #0 tabs 08/09/24 albuterol sulfate 2.5 mg/3 mL (0.083 %) solution for nebulization 2.5 mg (3 mL) inhalation Q2H PRN PRN SOB &/OR WHEEZING #0 mL 08/09/24 duloxetine 30 mg capsule,delayed release 30 mg PO DAILY #0 caps 08/09/24 food supplemt, lactose-reduced 0.08 gram-1.5 kcal/mL oral liquid (Ensure Plus High Protein) 120 ml PO 4X/DAY #0 mL 08/09/24 melatonin 10 mg sublingual tablet 10 mg PO QHS PRN PRN Insomnia #0 tabs 08/09/24
[2024-08-09] MEDS: Senna/Docusate Sodium 1 Tablet 2 TABLET PO (10:20)
[2024-08-09] MEDS: buPROPion (XL) 150 MG TABLET.XL PO (10:20)
--- NOTE | 2024-08-09 10:34 | NURSING ---
report called to [facility] dietary staff made aware to have lunch on unit before 11:30
--- NOTE | 2024-08-09 12:44 | NURSING ---
report given to [facility]pt transported to [facility]
== END 2024-08-09 12:50 | disposition skilled nursing facility (03) | DRG 312 ==
LOC: ED 14:51 → MS3 15:47
PROVIDERS: Admitting Provider Internal Medicine; Emergency Provider Emergency Medicine; PCP Family Medicine; Visit Provider Internal Medicine
DX: I95.1 Orthostatic hypotension (principal); R13.10 Dysphagia, unspecified; F32.A Depression, unspecified; F41.9 Anxiety disorder, unspecified; K21.9 Gastro-esophageal reflux disease without esophagitis; M47.812 Spondylosis without myelopathy or radiculopathy, cervical region; R79.89 Other specified abnormal findings of blood chemistry; R53.81 Other malaise; R53.1 Weakness; Z79.899 Other long term (current) drug therapy; Z98.1 Arthrodesis status; Z87.891 Personal history of nicotine dependence
CPT/HCPCS: 36415; 70450; 72125; 80048; 80053; 81001; 82533; 83605; 83690; 84484; 85025; 92526; 92610; 97116; 97162; 97166; 97530; 97535; 97802; 99285; A4216; J2405

== ENCOUNTER 2024-08-11 09:02 | Emergency (ER) | payer MEDICARE, OTHER, SELFPAY ==
[2024-08-11] VITALS (8 sets, daily range): BP systolic 64–160; BP diastolic 53–89; PULSE 49–75; RESP 12–16; TEMP 36.6–36.8; O2SAT 92–97; BMI 24.0
[2024-08-11 10:22] LABS: Mucous, Urine 0 SEEN /hpf (<or=2+); Red Blood Cells-Urine 0 SEEN /hpf (0-5); Squamous Epithelial Cells - UA 0 SEEN /hpf (0-5)
[2024-08-11 10:24] LABS: Glucose, Dipstick Normal (Normal); Ketone-Dipstick Negative (Negative); Leukocyte Esterase-Dipstick Negative /ul (Negative); Nitrite-Dipstick Negative (Negative); Occult Blood-Urine Negative /ul (Negative); Protein-Dipstick 15 mg/dl (Negative); Specific Gravity, Urine 1.015 (1.002-1.030); Urine Bilirubin Dipstick Negative (Negative)
[2024-08-11 10:26] LABS: Hematocrit 38.3 % (40-54); Hemoglobin 12.9 g/dL (13.0-16.5); Immature Granulocytes Count 0.030 X10^3/uL (0.0-0.0); Mean Corp Hgb Conc 33.7 g/dL (32-36); Mean Corpuscular Volume 85.7 fL (80-94); Mean Platelet Vol. 8.5 fl (6.2-12.0); NRBC Flagged by Analyzer 0 % (0-5); Platelet Count 216 K/mm3 (150-450); RBC Distribution Width CV 12.6 % (11.6-14.6); RBC Distribution Width SD 39.3 fl (35.1-43.9); Red Blood Count 4.47 M/mm3 (4.6-6.2); White Blood Count 7.5 K/mm3 (4.4-11.0)
[2024-08-11 10:31] LABS: Color, Urine YELLOW (Yellow)
[2024-08-11 10:43] LABS: BUN 14 mg/dL (4-19); Glucose 98 mg/dL (70-99)
[2024-08-11 10:44] LABS: Anion Gap 11 (5-15); BUN/Creat Ratio 16.9 RATIO (10-20); Calcium,Total 9.0 mg/dL (7.6-11.0); Carbon Dioxide 25.3 mmol/L (21.0-32.0); Chloride 102 mmol/L (98-108); Estimated Creatinine Clearance 66.39 ml/min (50-250); Potassium 4.2 mmol/L (3.3-5.1)
[2024-08-11] MEDS: 0.9% Normal Saline (1000mL) 1,000 ML 1000 ML IV ×2 (11:11→12:06)
== END 2024-08-11 14:23 | disposition skilled nursing facility (03) ==
PROVIDERS: Emergency Provider Emergency Medicine; PCP Family Medicine; Visit Provider Emergency Medicine
DX: I95.1 Orthostatic hypotension (principal); K21.00 Gastro-esophageal reflux disease with esophagitis, without bleeding; R11.0 Nausea; R53.1 Weakness; Z79.899 Other long term (current) drug therapy; Z98.1 Arthrodesis status; Z87.891 Personal history of nicotine dependence
CPT/HCPCS: 70450; 80048; 81001; 85025; 93005; 96360; 96361; 99285; A4216

== ENCOUNTER 2024-10-17 23:15 | Inpatient (IN) | payer MEDICARE, OTHER, SELFPAY ==
[2024-10-17 23:16] VITALS: BP 143/82; PULSE 80; RESP 18; TEMP 36.9; O2SAT 97; BMI 23.2
[2024-10-17 23:19] VITALS: BP 143/82; PULSE 80; RESP 18; TEMP 36.9; O2SAT 98
[2024-10-18] VITALS (14 sets, daily range): BP systolic 67–183; BP diastolic 38–95; PULSE 63–94; RESP 18–20; TEMP 36.4–36.9; O2SAT 94–99; BMI 22.5; BMI 22.4
[2024-10-18 00:09] LABS: Hematocrit 33.9 % (40-54); Hemoglobin 11.2 g/dL (13.0-16.5); Immature Granulocytes Count 0.110 X10^3/uL (0.0-0.0); Mean Corp Hgb Conc 33.0 g/dL (32-36); Mean Corpuscular Volume 82.3 fL (80-94); Mean Platelet Vol. 8.6 fl (6.2-12.0); NRBC Flagged by Analyzer 0 % (0-5); Platelet Count 325 K/mm3 (150-450); RBC Distribution Width CV 12.3 % (11.6-14.6); RBC Distribution Width SD 37.1 fl (35.1-43.9); Red Blood Count 4.12 M/mm3 (4.6-6.2); White Blood Count 14.7 K/mm3 (4.4-11.0)
[2024-10-18] MEDS: 0.9% Normal Saline (1000mL) 1,000 ML 999 ML IV (00:25)
[2024-10-18 00:44] LABS: Anion Gap 14 (5-15); BUN 24 mg/dL (4-19); BUN/Creat Ratio 24.8 RATIO (10-20); Calcium,Total 9.7 mg/dL (7.6-11.0); Carbon Dioxide 25.2 mmol/L (21.0-32.0); Chloride 97 mmol/L (98-108); Estimated Creatinine Clearance 56.80 ml/min (50-250); Glucose 98 mg/dL (70-99); Potassium 3.9 mmol/L (3.3-5.1)
--- NOTE | 2024-10-18 01:14 | EX.ED.DYSGE1 ---
HPI History of Present Illness Chief Complaint: Weakness Detail of Chief Complaint: 3 near syncopal episodes over the past 24 hours Informant: patient and spouse/S.O. Onset/Context/Timing Onset: Today (X 2) and Yesterday (X 1) Context: Sudden Onset Timing: Intermittent Quality: Becomes lightheaded when he urinates. Location: Restroom Current Severity: Gone Maximum Severity: Severe Worsened by: Urination Relieved by: Not applicable Associated Symptoms Associated Symptoms: Feels lightheaded and detailed HPI narrative Narrative Narrative: Patient is an 83-year-old male who presents from home. He has daily nursing help. He presently resides with his significant other. His significant other is his ex-. He had near sickle cell yesterday while urinating and 2 episodes today. He sits when he urinates. He was found on the floor today x 2. He does endorse thirst dry mouth and lightheadedness. He denies fever, chills night sweats. He reports that he is eating well. Significant other states he is not eating well and he is not drinking a lot of fluids. He denies chest pain, pressure tightness heaviness. He denies difficulty breathing or shortness of breath. He denies nausea, vomiting or diarrhea. He denies pain or any other symptoms prior to the syncopal sewed. He was not noted to be pale and he did not become sweaty. He did not strain to urinate. He has a history of generalized weakness, GERD, benign paroxysmal positional vertigo, postural dizziness with near syncope, anxiety and depression and reported ventral hernia. 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 Patient had no change in his medication. He does take midodrine when his systolic pressure is less than 120. His pressures were checked when this occurred and they were not low per patient. Prior similar symptoms: Yes Recent Illness/Hospitalization: No PFSH COUNT INCLUDES THE [facility] Medical History Cervical myelopathy Angiectasia of large intestine History of gastric polyp GERD with esophagitis Postural dizziness with near syncope Bilateral arm weakness Osteoarthritis Anxiety and depression Ventral hernia Loss of hearing Wears glasses Wears dentures Alcohol use History of IBS Heartburn Former smoker History of stress test Home Medications ?Medication ?Instructions ?Recorded ?Last Taken ?Type sennosides 8.6 mg-docusate sodium 2 tab PO BID laxative #0 tabs 04/27/24 Unknown Rx 50 mg tablet (Stimulant Laxative Plus) midodrine 5 mg tablet 10 mg (2 x 5 mg) PO 0700,1100,1500 05/18/24 Unknown Rx #0 tabs mirtazapine 15 mg tablet 15 mg PO QHS #0 tabs 05/18/24 Unknown Rx pantoprazole 40 mg tablet,delayed 40 mg PO BID #0 tabs 05/18/24 Unknown Rx release bupropion HCl 150 mg 24 hr tablet, 150 mg PO DAILY depression 08/05/24 Unknown History extended release acetaminophen 325 mg tablet 650 mg (2 x 325 mg) PO Q6H PRN PRN 08/09/24 Unknown Rx Pain 1-10 Or Fever >100.7 #0 tabs albuterol sulfate 2.5 mg/3 mL 2.5 mg (3 mL) inhalation Q2H PRN 08/09/24 Unknown Rx (0.083 %) solution for nebulization PRN SOB &/OR WHEEZING #0 mL duloxetine 30 mg capsule,delayed 30 mg PO DAILY #0 caps 08/09/24 Unknown Rx release food supplemt, lactose-reduced 120 ml PO 4X/DAY #0 mL 08/09/24 Unknown Rx 0.08 gram-1.5 kcal/mL oral liquid (Ensure Plus High Protein) Allergy/AdvReac Type Severity Reaction Status Date / Time No Known Allergies Allergy Verified 10/17/24 23:16 Family History Father , at 40 YOA of an [place] Heart disease Other Hypertension Surgical History Status post cervical spinal fusion History of esophagogastroduodenoscopy (EGD) Hx of colonoscopy History of tonsillectomy and adenoidectomy History of appendectomy Social History household members: none and other details: He is . Ex is Nan and she still is in contact. housing: apartment number of children: 2 Smoking Status: Former smoker quit date: 02/09/68 how long ago did patient quit smokin years alcohol intake: current alcohol intake frequency: holidays/special occasions only details: Tells me that he never drinks now. Tells me he drank too much in past. substance use type: does not use ROS ROS ED Constitutional Constitutional ED: Denies chills, fever(s), subjective, sweats or weight loss Eyes Eyes: Denies blurry vision, change in vision or diplopia ENT ENT ED: Denies ear pain, rhinorrhea or sore throat Cardiovascular Cardiovascular: Denies chest pain, orthopnea, palpitations or paroxysmal nocturnal dyspnea Respiratory/Chest Respiratory/Chest: Denies cough, dyspnea, dyspnea on exertion, orthopnea or paroxysmal nocturnal dyspnea Gastrointestinal Gastrointestinal: Denies abdominal pain, diarrhea, melena, nausea or vomiting Genitourinary Genitourinary ED: Reports other Details: Difficulty urinating. ; Denies dysuria, hematuria or urinary frequency Musculoskeletal Musculoskeletal: Denies arthralgias or myalgias Integumentary Denies rash Neurologic Neurologic: Reports weakness; Denies headache(s) or paresthesias Psychiatric Psychiatric: Denies anxiety Endocrine Endocrinology: Denies cold intolerance or heat intolerance Hematologic/Lymphatic Hematologic/Lymphatic: Reports systems reviewed and no addt'l complaints, except as documented EXAM Physical Exam Const Vital Signs: 10/17/24 23:16 10/17/24 23:19 10/17/24 23:19 Temperature 98.4 F Temperature Source Oral Pulse Rate 80 Pulse Rate [Lying] Pulse Rate [Sitting (for 1 minute prior to obtaining)] Pulse Rate [Standing (for 1 minute prior to obtaining)] Respiratory Rate 18 Respiratory Effort Normal Non-Labored Normal Non-Labored Respiratory Depth Normal Respiratory Pattern Normal Normal Blood Pressure 143/82 H Blood Pressure [Lying] Blood Pressure [Sitting (for 1 minute prior to obtaining)] Blood Pressure [Standing (for 1 minute prior to obtaining)] Blood Pressure Mean 102 Blood Pressure Mean [Lying] Blood Pressure Mean [Sitting (for 1 minute prior to obtaining)] Blood Pressure Mean [Standing (for 1 minute prior to obtaining)] Pulse Ox 97 Oxygen Delivery Method Room Air Room Air 10/17/24 23:19 10/18/24 00:08 10/18/24 00:17 Temperature 98.4 F 98.4 F Temperature Source Oral Oral Pulse Rate 80 72 Pulse Rate [Lying] 74 Pulse Rate [Sitting (for 1 minute prior to obtaining)] 84 Pulse Rate [Standing (for 1 minute prior to obtaining)] 94 Respiratory Rate 18 18 Respiratory Effort Respiratory Depth Respiratory Pattern Blood Pressure 143/82 H 165/90 H Blood Pressure [Lying] 156/80 H Blood Pressure [Sitting (for 1 minute prior to obtaining)] 119/70 Blood Pressure [Standing (for 1 minute prior to obtaining)] 74/39 L Blood Pressure Mean 102 115 Blood Pressure Mean [Lying] 105 Blood Pressure Mean [Sitting (for 1 minute prior to obtaining)] 86 Blood Pressure Mean [Standing (for 1 minute prior to obtaining)] 50 Pulse Ox 98 97 Oxygen Delivery Method Room Air Room Air 10/18/24 01:00 10/18/24 01:55 10/18/24 02:00 Temperature 98.3 F 98.2 F Temperature Source Oral Oral Pulse Rate 75 69 Pulse Rate [Lying] 80 Pulse Rate [Sitting (for 1 minute prior to obtaining)] 82 Pulse Rate [Standing (for 1 minute prior to obtaining)] 92 Respiratory Rate 18 18 Respiratory Effort Respiratory Depth Respiratory Pattern Blood Pressure 165/91 H 170/95 H Blood Pressure [Lying] 167/90 H Blood Pressure [Sitting (for 1 minute prior to obtaining)] 125/71 H Blood Pressure [Standing (for 1 minute prior to obtaining)] 67/38 L Blood Pressure Mean 115 120 Blood Pressure Mean [Lying] 115 Blood Pressure Mean [Sitting (for 1 minute prior to obtaining)] 89 Blood Pressure Mean [Standing (for 1 minute prior to obtaining)] 47 Pulse Ox 97 97 Oxygen Delivery Method Room Air Room Air 10/18/24 03:00 10/18/24 03:15 Temperature 98.3 F Temperature Source Oral Pulse Rate 83 Pulse Rate [Lying] 85 Pulse Rate [Sitting (for 1 minute prior to obtaining)] 92 Pulse Rate [Standing (for 1 minute prior to obtaining)] 94 Respiratory Rate 18 Respiratory Effort Respiratory Depth Respiratory Pattern Blood Pressure 154/91 H Blood Pressure [Lying] 173/85 H Blood Pressure [Sitting (for 1 minute prior to obtaining)] 118/67 Blood Pressure [Standing (for 1 minute prior to obtaining)] 91/80 Blood Pressure Mean 112 Blood Pressure Mean [Lying] 114 Blood Pressure Mean [Sitting (for 1 minute prior to obtaining)] 84 Blood Pressure Mean [Standing (for 1 minute prior to obtaining)] 83 Pulse Ox 97 Oxygen Delivery Method Room Air Patient's vital signs are unremarkable. Orthostatics were positive. Furthermore, patient was symptomatic. Positive well nourished and well developed General Appearance ED: well developed and NAD; Negative for cyanotic, diaphoretic or pallor HEENT Reports dry mucous membranes HEENT Narrative: Head is atraumatic and normocephalic. Ears normal. Nares patent. Posterior pharynx is normal. Mouth ED: Yes dry mucous membranes Mouth: dry mucous membranes Eyes PERRL and EOMs intact bilaterally Eyes Narrative: There is no nystagmus. General Eye ED: Negative for pale conjunctiva or scleral icterus Neck no lymphadenopathy, supple and no JVD Resp normal respiratory effort and clear to auscultation bilaterally Cardio regular rate, regular rhythm, S1 normal heart sound, S2 normal heart sound and no murmurs GI normal to inspection, nondistended, normoactive bowel sounds, non-tender and non-distended; Negative for hepatosplenomegaly GI Narrative: There is no palpable pulsatile mass. There is no abdominal bruit. Back/Spine no CVA tenderness Extremity Extremity Narrative: There is no asymmetry, discoloration, swelling, leg pain distention, palpable cords tenderness on the distribution of the deep venous system. General Extremety ED: Negative for tenderness Neuro oriented x3, CN's II-XII intact bilaterally and no sensory deficits noted Sensorium / Orientation: alert Motor Exam: strength 5/5 throughout Psych Mood & Affect: depressed Skin no rashes or lesions noted, no wounds and No skin turgor normal General Skin Exam: Negative for elasticity normal, jaundice or pallor MDM MDM MDM Narrative Medical decision making narrative: Clinically patient appears dehydrated. 1 L of normal saline was ordered. Orthostatic vital signs were obtained to determine if he has orthostatic hypotension due to possibly hypovolemia. EKG to assess for dysrhythmia. CBC to assess white count H&H. BMP to assess electrolytes and his BUN to creatinine ratio. Lab Data Attestation: I reviewed the patient's lab results. Lab results narrative: CBC reveals anemia with normal indices. He has had a 1.5 g drop in his hemoglobin since September 04. Electrolyte panel is remarkable for a slightly decreased chloride level. BUN is elevated 24 with a creatinine of 0.97. Creatinine is at upper end of normal for patient. BUN is elevated with an elevated BUN to creatinine ratio. This may represent prerenal azotemia due to dehydration. With 1.5 g drop in his hemoglobin need to consider GI bleed. Labs: Laboratory Results - last 24 hr 10/18/24 00:04 WBC 14.7 H RBC 4.12 L Hgb 11.2 L Hct 33.9 L MCV 82.3 MCH 27.2 MCHC 33.0 RDW Std Deviation 37.1 RDW Coeff of Delia 12.3 Plt Count 325 MPV 8.6 Immature Gran % (Auto) 0.700 Neut % (Auto) 83.5 H Lymph % (Auto) 7.4 L [place] % (Auto) 8.0 Eos % (Auto) 0.2 Baso % (Auto) 0.2 Absolute Neuts (auto) 12.3 H Absolute Lymphs (auto) 1.09 Nucleated RBC % 0 Sodium 136 Potassium 3.9 Chloride 97 L Carbon Dioxide 25.2 Anion Gap 14 BUN 24 H Creatinine 0.97 Estim Creat Clear Calc 56.80 Est GFR (MDRD) Non-Af 78 BUN/Creatinine Ratio 24.8 H Glucose 98 Calcium 9.7 Management Discussion w/another healthcare provider: Hospitalist (Case discussed with hospitalist, Dr. Jordan. This patient has a white count we will obtain a UA. Source of his white count is unknown.) Treatment and Re-Evaluation :: Orthostatic vital signs after a liter of normal saline were positive. He was symptomatic. Because of the drop in hemoglobin elevated BUN/creatinine ratio rectal exam was performed. Patient has light brown-colored stool. Stool was sent for Hemoccult testing. There is no obvious acute GI bleed. In light of this I second liter of normal saline was ordered. If he remains positive after the second liter will contact hospitalist for admission. Comments:: Patient is orthostatic after second liter is infused. He has made a total of 100 cc of urine. He is significantly dehydrated. Discharge Plan Triage Chief Complaint: Weakness Other Complaint: Fall ED Provider: Buck Rome Dx/Rx/DC Orders Clinical Impression: Orthostatic hypotension, Acute prerenal azotemia, Anemia, Micturition syncope, Leukocytosis Prescriptions: No Action midodrine 5 mg Tablet 10 mg PO 0700,1100,1500 Qty: 0 0RF pantoprazole 40 mg Tablet,Delayed Release (Dr/Ec) 40 mg PO BID Qty: 0 0RF mirtazapine 15 mg Tablet 15 mg PO QHS Qty: 0 0RF sennosides-docusate sodium [Stimulant Laxative Plus] 8.6-50 mg Tablet 2 tab PO BID Qty: 0 0RF bupropion HCl 150 mg tablet extended release 24 hr 150 mg PO DAILY acetaminophen 325 mg Tablet 650 mg PO Q6H PRN PRN (Reason: Pain 1-10 Or Fever >100.7) Qty: 0 0RF albuterol sulfate 2.5 mg /3 mL (0.083 %) Solution For Nebulization 2.5 mg inhalation Q2H PRN PRN (Reason: SOB &/OR WHEEZING) Qty: 0 0RF duloxetine 30 mg Capsule,Delayed Release(Dr/Ec) 30 mg PO DAILY Qty: 0 0RF Ensure Plus High Protein 0.08 gram-1.5 kcal/mL Liquid 120 ml PO 4X/DAY Qty: 0 0RF Primary Care Provider: Kevin Menjivar Referrals: Kevin Menjivar MD [Primary Care Provider] - Print Language: [place]ralt[place] Disposition Disposition: Acute Care Hospital [facility]
[2024-10-18] MEDS: 0.9% Normal Saline (1000mL) 1,000 ML 1000 ML IV (02:10)
--- NOTE | 2024-10-18 03:32 | HP.PCM.HOS_ITS ---
[facility] - General General Date of Admission: 10/18/24 Date of Service: 10/18/24 Chief Complaint: Near Syncope x 3. HPI Narrative YAS ROSA, is a 83 M with a past medical history of orthostatic hypotension; with postural dizziness and near syncope on midodrine TID prn for systolic blood pressure < 120 mmHg, history of BPPV, history of OA/DJD with cervical myelopathy with chronic LUE weakness; s/p cervical fusion (04/2024), depression with anxiety; on duloxetine and bupropion, history of angiectasia of colon; s/p colonoscopy (2020), history of IBS; of alternating diarrhea and constipation- type on sennosides-docusate BID, GERD; with history of gastric polyp (2020) on pantoprazole, chronic ventral hernia due to rectus diastasis defect; with patient using abdominal binder, former tobacco abuse (quit 1968) and history of recent admission here from August 05, 2024 to August 09, 2024 for treatment of generalized weakness with intermittent lightheadedness after surgery with symptoms suspected to be at least partially related to gabapentin; which was held with recent echocardiogram on April 10, 2024 that revealed LVEF ~70% with no evidence of diastolic dysfunction or regional wall motion abnormalities who presents to [facility] ER once again complaining of 3 near syncopal episodes in the past 24 hours. Mr. Rosa reports he had 2 near syncopal episodes today and one yesterday with him noticing the sudden-onset of lightheadedness when he urinates or stands up causing him to be found on the floor twice today. He was also noted to be pale with increased thirst and dry mouth with generalized weakness. He claims he is eating well but his significant other informed the ER provider that he has not been eating or drinking well. When he checked his blood pressure it was high in the ~160 mmHg range so he did not take midodrine. He denies associated fever, chills, runny nose, sore throat, diaphoresis, night sweats, chest pain, chest pressure, SOB, difficulty urinating, nausea, vomiting, diarrhea, dysuria, hematuria, headache or rash. He states his symptoms are similar to his previous near syncopal episodes. In the ER he was noted to have an elevated BUN/creatinine ratio of 24.8 present on admission consistent with suspected Dehydration with confirmed Orthostatic Hypotension (with blood pressure of 156/80 lying, 119/70 sitting and then dropping to 74/39 standing) in the setting of previously known Postural Dizziness with Near Syncope complicated by Leukocytosis of 14.7K present on admission due to suspected acute stress- response with no signs of infection and he was then admitted to the PCU under observation status for ongoing care for a stay that is expected to be less than 2 midnights. [facility] Medical History Cervical myelopathy Angiectasia of large intestine History of gastric polyp GERD with esophagitis Postural dizziness with near syncope Bilateral arm weakness Osteoarthritis Anxiety and depression Ventral hernia Loss of hearing Wears glasses Wears dentures Alcohol use History of IBS Heartburn Former smoker History of stress test Home Medications ?Medication ?Instructions ?Recorded ?Last Taken ?Type sennosides 8.6 mg-docusate sodium 2 tab PO BID laxativ e #0 tabs 04/27/24 Unknown Rx 50 mg tablet (Stimulant Laxative Plus) midodrine 5 mg tablet 10 mg (2 x 5 mg) PO 0700,110 0,1500 05/18/24 Unknown Rx #0 tabs mirtazapine 15 mg tablet 15 mg PO QHS #0 tabs 5 Unknown Rx pantoprazole 40 mg tablet,delayed 40 mg PO BID #0 tabs 05/18/24 Unknown Rx release bupropion HCl 150 mg 24 hr tablet, 150 mg PO DAILY dep ression 08/05/24 Unknown History extended release acetaminophen 325 mg tablet 650 mg (2 x 325 mg) PO Q6H PRN PRN 08/09/24 Unknown Rx Pain 1-10 Or Fever >100.7 #0 tabs albuterol sulfate 2.5 mg/3 mL 2.5 mg (3 mL) inhalation Q2H PRN 08/09/24 Unknown Rx (0.083 %) solution for nebulization PRN SOB &/OR WHEEZ ING #0 mL duloxetine 30 mg capsule,delayed 30 mg PO DAILY #0 cap s 08/09/24 Unknown Rx release food supplemt, lactose-reduced 120 ml PO 4X/DAY #0 mL 08/09/24 Unknown Rx 0.08 gram-1.5 kcal/mL oral liquid (Ensure Plus High Protein) Allergy/AdvReac Type Severity Reaction Status Date / Time No Known Allergies Allergy Verified 10/17/24 23:16 Family History Father , at 40 YOA of an [place] Heart disease Other Hypertension Surgical History Status post cervical spinal fusion History of esophagogastroduodenoscopy (EGD) Hx of colonoscopy History of tonsillectomy and adenoidectomy History of appendectomy Social History household members: none and other details: He is . Ex is Nan and she still is in contact. housing: apartment number of children: 2 Smoking Status: Former smoker quit date: 02/09/68 how long ago did patient quit smokin years alcohol intake: current alcohol intake frequency: holidays/special occasions only details: Tells me that he never drinks now. Tells me he drank too much in past. substance use type: does not use ROS ROS Narrative Review of Systems: Constitutional: Patient denies fever or chills. Eyes: Patient denies changes in vision or discharge from eyes. ENT: Patient denies runny nose, sore throat or ear pain. Resp: Patient denies SOB, cough or wheezing. CV: Patient denies chest pain, palpitations, heart racing or LE edema. GI: Patient denies abdominal pain, nausea, vomiting, diarrhea or constipation. : Patient denies dysuria, hematuria or urinary frequency. MSK: Patient admits to generalized weakness but he denies arthralgias or myalgias. Skin: Patient denies rash, abscess, wounds or jaundice. Psych: Patient denies symptoms of uncontrolled depression or anxiety. Neuro: Patient admits to generalized weakness with chronic UE weakness but he denies headache or paresthesias. Allergy: Patient denies lip swelling, tongue swelling or urticaria. Hematology: Patient denies easy bleeding or easy bruisability. Endocrinology: Patient denies polyuria, polydipsia, polyphagia or heat/cold intolerance. 14 point ROS otherwise negative except for positives noted above in HPI. Vital Signs Vital Signs Vital Signs: 10/17/24 23:16 10/17/24 23:19 10/17/24 23:19 Temperature 98.4 F Temperature Source Oral Pulse Rate 80 Pulse Rate [Lying] Pulse Rate [Sitting (for 1 minute prior to obtaining)] Pulse Rate [Standing (for 1 minute prior to obtaining)] Respiratory Rate 18 Respiratory Effort Normal Non-Labored Normal Non-Labored Respiratory Depth Normal Respiratory Pattern Normal Normal Blood Pressure 143/82 H Blood Pressure [Lying] Blood Pressure [Sitting (for 1 minute prior to obtaining)] Blood Pressure [Standing (for 1 minute prior to obtaining)] Blood Pressure Mean 102 Blood Pressure Mean [Lying] Blood Pressure Mean [Sitting (for 1 minute prior to obtaining)] Blood Pressure Mean [Standing (for 1 minute prior to obtaining)] Pulse Ox 97 Oxygen Delivery Method Room Air Room Air 10/17/24 23:19 10/18/24 00:08 10/18/24 00:17 Temperature 98.4 F 98.4 F Temperature Source Oral Oral Pulse Rate 80 72 Pulse Rate [Lying] 74 Pulse Rate [Sitting (for 1 minute prior to obtaining)] 84 Pulse Rate [Standing (for 1 minute prior to obtaining)] 94 Respiratory Rate 18 18 Respiratory Effort Respiratory Depth Respiratory Pattern Blood Pressure 143/82 H 165/90 H Blood Pressure [Lying] 156/80 H Blood Pressure [Sitting (for 1 minute prior to obtaining)] 119/70 Blood Pressure [Standing (for 1 minute prior to obtaining)] 74/39 L Blood Pressure Mean 102 115 Blood Pressure Mean [Lying] 105 Blood Pressure Mean [Sitting (for 1 minute prior to obtaining)] 86 Blood Pressure Mean [Standing (for 1 minute prior to obtaining)] 50 Pulse Ox 98 97 Oxygen Delivery Method Room Air Room Air 10/18/24 01:00 10/18/24 01:55 10/18/24 02:00 Temperature 98.3 F 98.2 F Temperature Source Oral Oral Pulse Rate 75 69 Pulse Rate [Lying] 80 Pulse Rate [Sitting (for 1 minute prior to obtaining)] 82 Pulse Rate [Standing (for 1 minute prior to obtaining)] 92 Respiratory Rate 18 18 Respiratory Effort Respiratory Depth Respiratory Pattern Blood Pressure 165/91 H 170/95 H Blood Pressure [Lying] 167/90 H Blood Pressure [Sitting (for 1 minute prior to obtaining)] 125/71 H Blood Pressure [Standing (for 1 minute prior to obtaining)] 67/38 L Blood Pressure Mean 115 120 Blood Pressure Mean [Lying] 115 Blood Pressure Mean [Sitting (for 1 minute prior to obtaining)] 89 Blood Pressure Mean [Standing (for 1 minute prior to obtaining)] 47 Pulse Ox 97 97 Oxygen Delivery Method Room Air Room Air 10/18/24 03:00 10/18/24 03:15 Temperature 98.3 F Temperature Source Oral Pulse Rate 83 Pulse Rate [Lying] 85 Pulse Rate [Sitting (for 1 minute prior to obtaining)] 92 Pulse Rate [Standing (for 1 minute prior to obtaining)] 94 Respiratory Rate 18 Respiratory Effort Respiratory Depth Respiratory Pattern Blood Pressure 154/91 H Blood Pressure [Lying] 173/85 H Blood Pressure [Sitting (for 1 minute prior to obtaining)] 118/67 Blood Pressure [Standing (for 1 minute prior to obtaining)] 91/80 Blood Pressure Mean 112 Blood Pressure Mean [Lying] 114 Blood Pressure Mean [Sitting (for 1 minute prior to obtaining)] 84 Blood Pressure Mean [Standing (for 1 minute prior to obtaining)] 83 Pulse Ox 97 Oxygen Delivery Method Room Air Weight Weight: 152 lb 12.485 oz Body Mass Index (BMI) 23.2 Physical Exam Const alert, oriented x3, no apparent distress and average body habitus Constitutional Narrative: Positive orthostatic hypotension noted. General Appearance: cooperative HEENT normocephalic, head/scalp atraumatic and hearing grossly normal bilaterally HEENT Narrative: Mucous membranes dry. Eyes PERRL, EOMs intact bilaterally and conjunctivae normal Neck no lymphadenopathy, supple and no JVD Resp normal respiratory effort, no retractions, no use of accessory muscles and clear to auscultation bilaterally Cardio regular rate and regular rhythm GI normal to inspection, nondistended, normoactive bowel sounds, soft to palpation, non-tender and non-distended Extremity normal to inspection, full ROM and no clubbing, cyanosis or edema Skin Skin Narrative: Patient has no evidence of rash, abscess, wounds or jaundice. Neuro oriented x3, CN's II-XII intact bilaterally, moves all extremities and no focal motor deficits Sensorium / Orientation: awake, alert, oriented to person, oriented to place and oriented to time Speech: speech normal Psych affect normal Results Medical Records Data Attestation: I reviewed the patient's medical records Lab / Micro Data Attestation: I reviewed the patient's lab results. 10/18/24 00:04 10/18/24 00:04 Labs: Laboratory Results - last 24 hr 10/18/24 00:04: WBC 14.7 H, RBC 4.12 L, Hgb 11.2 L, Hct 33.9 L, MCV 82.3, MCH 27.2, MCHC 33.0, RDW Std Deviation 37.1, RDW Coeff of Delia 12.3, Plt Count 325, MPV 8.6, Immature Gran % (Auto) 0.700, Neut % (Auto) 83.5 H, Lymph % (Auto) 7.4 L, Crowley % (Auto) 8.0, Eos % (Auto) 0.2, Baso % (Auto) 0.2, Absolute Neuts (auto) 12.3 H, Absolute Lymphs (auto) 1.09, Nucleated RBC % 0, Sodium 136, Potassium 3.9, Chloride 97 L, Carbon Dioxide 25.2, Anion Gap 14, BUN 24 H, Creatinine 0.97, Estim Creat Clear Calc 56.80, Est GFR (MDRD) Non-Af 78, BUN/Creatinine Ratio 24.8 H, Glucose 98, Calcium 9.7 Micro: Microbiology 10/18/24 02:11 Stool Stool Occult Blood (JERMAINE) - Final Assessment & Plan Assessment/Plan (1) Orthostatic hypotension: (2) Postural dizziness with near syncope: (3) Dehydration: (4) Generalized weakness: (5) Poor fluid intake: (6) Leukocytosis: QUALIFIERS: Leukocytosis type: unspecified Qualified Code(s): D 72.829 - Elevated white blood cell count, unspecified (7) BPPV (benign paroxysmal positional vertigo): QUALIFIERS: Laterality: unspecified laterality Qualified Code(s): H81.10 - Benign paroxysmal vertigo, unspecified ear PLAN: Plan 1. Orthostatic Hypotension (with blood pressure of 156/80 lying, 119/70 sitting and then dropping to 74/39 standing) in the setting of previously known Postural Dizziness with Near Syncope - Admit to PCU under observation status. Serialize troponin. Check carotid Doppler to evaluate for stenosis. Finally, we will consult [facility] to see this patient on-rounds in the AM for further recommendations with help appreciated in advance. 2. Elevated BUN/creatinine ratio of 24.8 present on admission consistent with suspected Dehydration exacerbating #1 - Volume resuscitate and recheck renal indices daily. 3. 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 4. Leukocytosis of 14.7K present on admission due to suspected acute stress- response with no signs of infection compounding #1 - #3 - Check UA C&S and serialize CBC daily to follow trend. 5. History of BPPV adding to the medical complexity of #1 - #4 - Give meclizine prn for breakthrough symptoms. 6. History of recent admission here from August 05, 2024 to August 09, 2024 for treatment of generalized weakness with intermittent lightheadedness after surgery with symptoms suspected to be at least partially related to gabapentin; which was held with recent echocardiogram on April 10, 2024 that revealed LVEF ~70% with no evidence of diastolic dysfunction or regional wall motion abnormalities - Noted. 7. Depression with anxiety; on duloxetine and bupropion - Maintain current regimen. 8. History of angiectasia of colon; s/p colonoscopy (2020) - Noted. 9. History of IBS; of alternating diarrhea and constipation-type on sennosides- docusate BID - Noted. 10. GERD; with history of gastric polyp (2020) on pantoprazole - Continue PPI. 11. Chronic ventral hernia due to rectus diastasis defect; with patient using abdominal binder - Stable. 12. Former tobacco abuse (quit 1968) - Noted. 13. DVT prophylaxis - Heparin 5,000U sq BID plus SCD's. Total time: Approximately (but not less than) 70 minutes. Charges/Coding Visit Charges OBSV E&M: 49018 Observ/hosp same date L2
[2024-10-18 03:44] LABS: Mucous, Urine 0 SEEN /hpf (<or=2+); Red Blood Cells-Urine 0 SEEN /hpf (0-5); Squamous Epithelial Cells - UA 0 SEEN /hpf (0-5)
[2024-10-18 03:45] LABS: Color, Urine Yellow (Yellow); Glucose, Dipstick Normal (Normal); Ketone-Dipstick 5 mg/dl (Negative); Leukocyte Esterase-Dipstick Negative /ul (Negative); Nitrite-Dipstick Negative (Negative); Occult Blood-Urine Negative /ul (Negative); Protein-Dipstick 15 mg/dl (Negative); Specific Gravity, Urine 1.020 (1.002-1.030); Urine Bilirubin Dipstick Negative (Negative)
--- OUTSIDE RECORDS SUMMARY | 2024-10-18 04:24 | XMS RPT_ITS | CCD ---
Author Organization [facility] CliniSyid Care Team Providers Care It Security Manager Name Role Phone JORGE L CARTER Unavailable Unavailable KWABENA MENJIVAR Unavailable Unavailable BAO CERVANTES Unavailable Unavailable KWABENA MENJIVAR Unavailable Unavailable Otto CABELLO, Dr. Brown Primary Care Provider Mark CABELLO, Dr. Sterling Attending Provider Dr. Asher Flores MD Emergency Provider Dr. David Granados MD Attending Provider Dr. [...] Menjivar MD, Dr. Brown Referring Provider Sukhi YIELD ENGINEER-C, Sonia Attending Provider Sukhi YIELD ENGINEER-C, Sonia Referring Provider Otto CABELLO, Dr. Brown Primary Care Provider Kaylah BREWER, Dr. Tinsley Emergency Provider Tima BREWER, Dr. Colunga Admit Provider Tima BREWER, Dr. Colunga Referring Provider Tima BREWER, Dr. Colunga Other Provider Dr. Yas Godinez MD Attending Provider Dr. Yas Godinez MD Other Provider Dr. Keanu Alfred DO Attending Provider Rosetta CABELLO, Dr. Samaniego Attending Provider Dr. Ciro Diego MD Other Provider Sahil CABELLO, Dr. Moreira Attending Provider Dr. Ciro Diego MD Attending Provider Dr. Harish Baxter MD Referring Provider Darwin CABELLO, Dr. Hernandez Attending Provider Dr. David Granados MD Referring Provider Sahil CABELLO, Dr. Moreira Other Provider Anita YIELD ENGINEER-C, Ana Rosa Snyder Attending Provider Semengavin DO, Dr. Corazon Pacheco Admit Provider Sementi DO, Dr. Corazon Pacheco Attending Provide r Sementi DO, Dr. Corazon Pacheco Referring Provide r Sementi DO, Dr. Corazon Pacheco Other Provider Awa Gamble Attending Provider Keven Etienne MD Attending Provider Jagruti Menjivar MD, Dr. Brown Referring Provider Sukhi YIELD ENGINEER-C, Sonia Attending Provider Sukhi YIELD ENGINEER-C, Sonia Referring Provider Jaimie CABELLO, Keven Referring Provider Unavailyenifer Menjivar MD, Dr. Brown Attending Provider [facility]INE[facility]C, Angelika Attending Provider Jaimie CABELLO, Dr. Baca Attending Provider Chuck BREWER, Dr. Headley Emergency Provider iKrk CABELLO, Dr. Nicholas Admit Provider Kirk CABELLO, Dr. Nicholas Attending Provider Kirk CABELLO, Dr. Nicholas Other Provider Dr. Jacoby Mendoza MD Attending Provider Unavailyenifer Collier DO, Dr. Colunga Other Provider Amira BREWER, Dr. Colunga Attending Provider Dr. Jacoby Mendoza MD Other Provider Unavailable Yudith BREWER, Dr. Colunga Emergency Provider Otto CABELLO, Dr. Brown Primary Care Provider Kyle BREWER, Dr. Corazon Pacheco Other Provider Johnathon CABELLO, Dr. Tanner Attending Provider Darwin CABELLO, Dr. Hernandez Attending Provider Dr. Keanu Zurita DO Attending Provider Otto CABELLO, Dr. Brown Primary Care Provider Keven Etienne MD Attending Provider Unavaila kamlesh Nowak NP-CAngelika Attending Provider Johnathon CABELLO, Dr. Tanner Attending Provider Jaimie CABELLO, Dr. Baca Attending Provider Yu Bradley Admitting Unavailable Yu Bradley Consulting Unavailable Jacoby Mendoza Attending Unavailable [facility] Unavailable TerKeanu vann Consulting Unavailable Ciro Diego Consulting Unavailable [facility] Unavailable Harish Baxter Attending Unavailable Keanu Alfred Admitting Unavailable SiskaYas Consulting Unavailable Keanu Alfred Consulting Unavailable Sementi, Corazon Pacheco Admitting Unavaila ble Sementi, Corazon Pacheco Attending Unavaila ble [facility] Unavailable Sementi, Corazon Pacheco Referring Unavaila ble [facility] Unavailable Keanu Zurita Attending Unavailable [facility] Unavailable Awa Chadwick Attending Unavailable Sementi, Corazon Pacheco Consulting Unavaila ble Sementi, Corazon Pacheco Referring Unavaila ble Sementi, Corazon Pacheco Admitting Unavaila ble Sementi, Corazon Pacheco Attending Unavaila ble Sonia Isbell Attending Unavailable [facility] Referring Unavailable [facility] Primary Care Unavailable Angelika Nowak NP Attending Unavailable [facility] Primary Care Unavailable Oleghe OLS, Efewongbe Referring Unavailabl e Oleghe OLS, Efewongbe Attending Unavailabl e [facility] Unavailable Oleghe OLS, Efewongbe Attending Unavailabl e [facility] Unavailable Oleghe OLS, Efewongbe Attending Unavailabl e [facility] Unavailable Oleghe OLS, Efewongbe Referring Unavailabl e Oleghe OLS, Efewongbe Attending Unavailabl e [facility] Unavailable Oleghe OLS, Efnitishbe Attending Unavailabl e [facility] Unavailable [facility] Primary Care Unavailable [facility] Referring Unavailable [facility] Attending Unavailable Bisi Brittonbe Attending Unavailabl e [facility] Care Unavailable Sonia Isbell Referring Unavailable Sonia Isbell Attending Unavailable [facility] Care Unavailable [facility] Primary Care Unavailable Bisi Brittonbe Attending Unavailabl e Bradley, Yu Admitting Unavailable Bradley, Yu Consulting Unavailable Bradley Yu Attending Unavailable [facility] Primary Care Unavailable Bradley, Yu Admitting Unavailable Bradley, Yu Consulting Unavailable [facility] Primary Care Unavailable TerKeanu vann Attending Unavailable Tereletsky, Keanu Consulting Unavailable [facility] Care Unavailable Joarvinderi Kaenu Attending Unavailable Jopperi, Keanu Admitting Unavailable Jopperi, Keanu Consulting Unavailable Siska, Yas Attending Unavailable Siska, Yas Consulting Unavailable Jopperi, Keanu Referring Unavailable Diego, Ciro Consulting Unavailable Siska, Yas Consulting Unavailable [facility] Care Unavailable Jopperi, Keanu Admitting Unavailable Jopperi, Keanu Attending Unavailable Diego, Ciro Consulting Unavailable Jopperi, Keanu Consulting Unavailable Diego, Ciro Attending Unavailable Sahil, Harish Referring Unavailable Jacoby Mendoza Attending Unavailable Jacoby Mendoza Consulting Unavailable Tracie Diegoag Attending Unavailable [facility] Referring Unavailable [facility] Care Unavailable David Granados Attending Unavailable [facility] Care Unavailable Marcuston YIELD ENGINEER, Angelika Attending Unavailable [facility] Primary Care Unavailable Ciro Diego Attending Unavailable [facility] Referring Unavailable [facility] Primary Care Unavailable Sahil, Harish Attending Unavailable Sahil, Harish Consulting Unavailable Anita YIELD ENGINEER, Ana Rosa Snyder Attending Unavailabl e David Granados Attending Unavailable [facility] Primary Care Unavailable Bisi Etiennebe Attending Unavailable [facility] Primary Care Unavailable [facility] Primary Care Unavailable Yandel Granadosril Attending Unavailable [facility] Primary Care Unavailable Marcuston YIELD ENGINEER, Angelika Attending Unavailable [place]ton YIELD ENGINEER, Angelika Attending Unavailable [facility] Primary Care Unavailable Bisi Etiennebe Attending Unavailable [facility] Primary Care Unavailable [place]ickton YIELD ENGINEER, Angelika Attending Unavailable [facility] Primary Care Unavailable Ciro Diego Attending Unavailable Sonia Isbell Referring Unavailable Sonia Isbell Attending Unavailable [facility] Primary Care Unavailable Keven Britton Attending Unavailabl e [facility] Primary Care Unavailable [facility] Referring Unavailable Gurwindernorris, Kwabena Attending Unavailable [facility] Primary Care Unavailable [facility] Primary Care Unavailable Asher Flores Attending Unavailable [facility] Referring Unavailable GurwindernorrisKwabena Attending Unavailable [facility] Unavailable David Granados Attending Unavailable [facility] Primary Care Unavailable Corazon Wright Referring Unavaila ble [facility] Care Unavailable Danette Sargent Attending Unavailabl e Darwin, [place] Referring Unavailable DarwinZarina juarezl Attending Unavailable [facility], [place] Primary Care Unavailable [facility] Referring Unavailable Sonia Isbell Attending Unavailable [facility] Care Unavailable [facility] Primary Care Unavailable Rita Brittonongbe Attending Unavailabl e Frans[place] KAYA Efewongbe Referring Unavailabl e [place] KAYA Efewongbe Attending Unavailabl e [facility] Unavailable Medications Current Medications Medication Drug Class(es) Dates Sig (Normalized) Sig (Original) acetaminophen 325 mg oral tablet (20 sources) Start: 08-09-2024 Start: 05-18-2024 End: 06-01-2024 Start: 04-27-2024 End: 05-18-2024 albuterol 0.83 mg/ml inhalation solution (6 sources) beta2-Adrenergic Agonist Start: 08-09-2024 24 hr buPROPion hydrochloride 150 mg extended release oral tablet (6 sources) Aminoketone Start: 08-05-2024 Digestive Enzymes (3 sources) Start: 11-26-2020 take 1 capsule by mouth three times daily at mealtime Digestive Enzymes Active 1 CAP PO 3 times per day with meals November 26, 2020 12:00am may open cap/sprinkle on applesauce;do not chew docusate sodium 50 mg / sennosides, detention 8.6 mg oral tablet (16 sources) Start: 04-27-2024 Start: 04-27-2024 Sennosides-Doc usate Sodium (Stimulant Laxative Plus) 8.6-50 mg Tablet Active 2 {tbl} PO TWICE A DAY April 27, 2024 12:00am DULoxetine 30 mg delayed release oral capsule (6 sources) Serotonin and Norepinephrine Reuptake Inhibitor Start: 08-09-2024 Food Supplemt, Lactose-Reduced (Ensure Plus High Protein) [...] 2024 12:00am gabapentin 100 mg oral capsule (15 sources) Anti-epileptic Agent Start: 05-18-2024 Hydrocortisone Acetate (Anusol-Hc) 25 mg suppository (1 source) Start: 05-25-2024 Hydrocortisone Acetate (Anusol-Hc) 25 mg suppository Active 25 mg RC AT BEDTIME May 25, 2024 12:00am Magnesium Hydroxide (2 sources) Start: 05-18-2024 take 1 mL by mouth once as needed for constipation Magnesium Hydroxide 400 mg/5 mL Suspension Active 30 mL PO ONE TIME as needed for Constipation May 18, 2024 12:00am melatonin 10 mg sublingual tablet (6 sources) Start: 08-09-2024 Menthol / Zinc Oxide (2 sources) Start: 05-18-2024 Menthol-Zinc Oxide (Calmoseptine) 0.44-20.6 % Ointment Active 1 NMA TOPICAL TWICE A DAY May 18, 2024 12:00am Please contact the information source for Protocol details. midodrine hydrochloride 5 mg oral tablet (20 sources) alpha-Adrenergic Agonist Start: 05-18-2024 Midodrine 5 mg Tablet Active 10 mg PO 0700,1100,1500 0 May 18, 2024 12:00am Start: 04-27-2024 End: 05-18-2024 mirtazapine 15 mg oral table t (15 sources) Start: 05-18-2024 Start: 05-18-2024 take 1 tablet by emily th at bedtime Mirtazapine 15 mg Tablet Active 15 mg PO AT BEDTIME 0 May 18, 2024 12:00am [place] (Nk) (1 source) Start: 02-26-2024 [place] (Nk) A ctive February 26, 2024 1:00am pantoprazole 40 mg delayed release oral tablet (20 sources) Proton Pump Inhibitor Start: 05-18-2024 Start: 04-27-2024 End: 05-18-2024 (20 sources) Start: 08-09-2024 Start: 05-25-2024 End: 08-05-2024 Start: 05-25-2024 Start: 05-18-2024 End: 08-05-2024 Start: 05-18-2024 End: 08-05-2024 Start: 05-18-2024 End: 08-09-2024 Start: 05-18-2024 Start: 04-27-2024 End: 05-18-2024 Start: 11-26-2020 End: 02-26-2024 Completed/Discontinued Medications Medication Drug Class(es) Dates Sig (Normalized) Sig (Original) benzocaine 15 mg / menthol 3.6 mg oral lozenge (20 sources) Standardized Chemical Allergen Start: 04-27-2024 End: 08-05-2024 Start: 04-27-2024 End: 05-18-2024 Benzocaine-Menthol (Sore Thr oat (Benzocaine-Menth)) 15-3.6 mg Lozenge Active 1 NMA MUCOUS MEM EVERY 2 HOURS NEEDED as needed for SORE THROAT 0 May 18, 2024 12:00am bisacodyl 10 mg rectal suppo sitory (15 sources) Stimulant Laxative Start: 05-18-2024 End: 08-05-2024 Start: 05-18-2024 Bisacodyl 10 m g Suppository Active 10 mg RC ONE TIME as needed for Constipation 0 May 18, 2024 12:00am calcium polycarbophil 625 mg oral tablet (14 sources) Start: 05-25-2024 End: 08-05-2024 carboxymethylcellulose sodium 5 mg/ml ophthalmic solution (20 sources) Start: 04-27-2024 End: 08-05-2024 diazePAM 2 mg oral tablet (16 sources) Benzodiazepine Start: 04-27-2024 End: 05-18-2024 dicyclomine hydrochloride 10 mg oral capsule (20 sources) Anticholinergic Start: 2020 End: 02-26-2024 Digestive Enzymes capsule (4 sources) Start: 11-26-2020 End: 02-26-2024 take 1 capsule by mouth three times daily at mealtime Digestive Enzymes capsule Discontinued 1 NMA PO 3 times per day with meals November 26, 2020 12:00am February 26, 2024 11:06am may open cap/sprinkle on applesauce;do not chew doxycycline hyclate 100 mg oral capsule (20 sources) Tetracycline-class Drug Start: 11-26-2020 End: 02-26-2024 famotidine 20 mg oral tablet (20 sources) Histamine-2 Receptor Antagonist Start: 2020 End: 02-26-2024 Start: 2020 End: 02-26-2024 take 1 tablet by mouth at bedtime Famotidine 20 mg tablet Discontinued 20 mg PO AT BEDTIME 2020 12:00am February 26, 2024 11:06am Take one tablet at bedtime. FLUoxetine 20 mg oral capsul e (20 sources) Serotonin Reuptake Inhibitor Start: 09-15-2020 End: 02-26-2024 Start: 09-15-2020 take 30 mg by mouth once daily Fluoxetine Active 30 MG PO DAILY September 15, 2020 12:00am meclizine hydrochloride 25 m g oral tablet (16 sources) Antiemetic Start: 04-27-2024 End: 05-18-2024 meloxicam 15 mg oral tablet (16 sources) Nonsteroidal Anti-inflammatory Drug Start: 04-27-2024 End: 05-18-2024 methocarbamol 500 mg oral ta blet (16 sources) Muscle Relaxant Start: 04-27-2024 End: 05-18-2024 omeprazole 20 mg delayed rel ease oral capsule (20 sources) Proton Pump Inhibitor Start: 2020 End: 02-26-2024 Start: 11-12-2020 End: 2020 oxyCODONE hydrochloride 5 mg oral tablet (16 sources) Opioid Agonist Start: 04-27-2024 End: 05-18-2024 sucralfate 100 mg/ml oral velasquez spension (20 sources) Aluminum Complex Start: 01-17-2021 End: 02-26-2024 tamsulosin hydrochloride 0.4 mg oral capsule (16 sources) alpha-Adrenergic Maria Del Carmen Start: 04-27-2024 End: 05-18-2024 Problems Active Problems Problem Classification Problem Date Documented Da te Episodic/Chronic Abdominal pain (10 sources) Finding of sensation of abdomen; Translations: [Unspecified abdominal pain] 09-19-2020 Episodic Anxiety disorders (20 sources) Anxiety; Translations: [...] above: and has also had syn cope. Esophageal disorders (20 sources) Gastro-esophageal reflux disease with esophagitis; Translations: [Gastroesophageal reflux disease with esophagitis] Onset: 5 04-28-2024 Chronic Comment on above: Non-compliant with P PI or H2 Esophageal disorders (1 source) Esophageal disorders; Translations: [Gastro-esophageal reflux disease with esophagitis, without bleeding] Onset: Essential hypertension (20 sources) Hypertensive disorder; Translations: [Essential (primary) hypertension] 04-19-2024 Chronic Genitourinary symptoms and ill-defined conditions (20 sources) Urinary incontinence; Translations: [Unspecified urinary incontinence] Onset: 5 04-28-2024 Chronic Hyperplasia of prostate (14 sources) Benign prostatic hyperplasia; Translations: [Benign prostatic hyperplasia without lower urinary tract symptoms] Onset: 5 05-20-2024 Chronic Intestinal obstruction without hernia (20 sources) Fecal impaction; Translations: [Fecal impaction] 10-14-2018 Episodic Malaise and fatigue (20 sources) Asthenia; Translations: [Other malaise] Onset: 5 04-28-2024 Episodic Mood disorders (1 source) Mood disorders; Translations: [Depression, unspecified] Onset: Open wounds of head; neck; and trunk (17 sources) Laceration of eyebrow; Translations: [Laceration without foreign body of unspecified eyelid and periocular area, initial encounter] 03-05-2024 Episodic Osteoarthritis (20 sources) Osteoarthritis; Translations: [Unspecified osteoarthritis, unspecified site] Onset: 5 05-10-2024 Chronic Other circulatory disease (20 sources) Orthostatic hypotension; Translations: [Orthostatic hypotension] 04-28-2024 Episodic Other connective tissue disease (13 sources) Muscle weakness of upper limb; Translations: [Other symptoms and signs involving the musculoskeletal system] 04-19-2024 Episodic Other connective tissue disease (20 sources) Spasm; Translations: [Other muscle spasm] 05-10-2024 Episodic Other connective tissue disease (20 sources) Bilateral weakness of upper limbs; Translations: [Other symptoms and signs involving the musculoskeletal system] 04-28-2024 Episodic Comment on above: LAKESHIA is flaccid with muscle atrophy Other connective tissue disease (20 sources) Recurrent falls ; Translations: [Repeated falls] 05-10-2024 Episodic Other connective tissue disease (20 sources) History of cervical spine fusion; Translations: [Arthrodesis status] 04-28-2024 Episodic Comment on above: 04/26/[address] Tate Diego. C3-C6 anterior cervical depression and fusion Other connective tissue disease (2 sources) Arthrodesis status; Translations: [Arthrodesis status] Onset: Episodic Other eye disorders (20 sources) Subconjunctival hemorrhage; Translations: [Conjunctival hemorrhage, unspecified eye] 04-19-2024 Episodic Other gastrointestinal disorders (5 sources) Irritable [...] [Diarrhea, unspecified] 10-25-2020 Episodic Other gastrointestinal disorders (20 sources) History of irritable bowel syndrome; Translations: [Personal history of other diseases of the digestive system] 04-28-2024 Episodic Comment on above: With alternating florin rrhea and constipation Other gastrointestinal disorders (20 sources) Incontinence of feces; Translations: [Full incontinence of feces] Episodic Other gastrointestinal disorders (20 sources) Constipation; Translations: [Constipation, unspecified] Episodic Other injuries and conditions due to external causes (17 sources) Closed injury of head; Translations: [Unspecified injury of head, initial encounter] 03-05-2024 Episodic Other nervous system disorders (20 sources) Cervical myelopathy; Translations: [Disease of spinal cord, unspecified] 04-21-2024 Chronic Comment on above: acute on chronic. velasquez spect has chronic cervical stenosis with myelomalacia but, likely exacerbated with recent fall/head and neck trauma and ACDF Other nervous system disorders (20 sources) Myelomalacia; Translations: [Other specified diseases of spinal cord] 04-28-2024 Chronic Other nervous system disorders (1 source) Other specified diseases of spinal cord; Translations: [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 Other nervous system disorders (1 source) Other chronic pain; Translations: [Other chronic pain] Onset: 5 Chronic Other nervous system disorders (1 source) Disease of spinal cord, unspecified; Translations: [Disease of spinal cord, unspecified] Onset: 5 Chronic Other non-traumatic joint disorders (20 sources) Chronic pain of left upper limb; Translations: [Pain in left shoulder] 04-19-2024 Episodic Comment on above: Left shoulder sublux ation secondary to muscle atrophy Other screening for suspected conditions (not mental disorders or infectious disease) (1 source) Encounter for screening for lipoid disorders; Translations: [Encounter for screening for lipoid disorders] Onset: 5 Episodic Other upper respiratory disease (20 sources) Bleeding from nose; Translations: [Epistaxis] 04-19-2024 Episodic Other upper respiratory disease (20 sources) Edema of larynx; Translations: [Edema of larynx] 05-02-2024 Episodic Comment on above: Due to chronic untre ated reflux. Spondylosis; intervertebral disc disorders; other back problems (2 sources) Other cervical disc degeneration, unspecified cervical region; Translations: [Degeneration of cervical intervertebral disc] Onset: Chronic Superficial injury; contusion (20 sources) Contusion of knee; Translations: [Contusion of unspecified knee, initial encounter] 03-05-2024 Episodic Unclassified (2 sources) Esophagitis/laryngitis Unclassified (1 source) R15.9 - Full incontinence of feces,K59.00 - Constipation, unspecified Past or Other Problems Problem Classification Problem Date Documented Da te Episodic/Chronic Abdominal hernia (20 sources) Hernia of anterior abdominal wall; Translations: [Ventral hernia without obstruction or gangrene] Onset: 05-19-2024 02-28-2021 Episodic Comment on above: Has an abd binder bu t, not using and did not know why he was given the binder. Acute posthemorrhagic anemia (20 sources) Anemia following acute postoperative blood loss; Translations: [Acute posthemorrhagic anemia] Onset: 05-19-2024 04-28-2024 Episodic E Codes: Fall (20 sources) Fall; Translations: [Unspecified fall, initial encounter] Onset: 05-19-2024 04-19-2024 Episodic Fluid and electrolyte disorders (20 sources) Severe dehydration; Translations: [Dehydration] Onset: 05-19-2024 04-28-2024 Episodic Genitourinary symptoms and ill-defined conditions (20 sources) Delay when starting to pass urine; Translations: [Hesitancy of micturition] Onset: 05-19-2024 09-15-2020 Episodic Intracranial injury (20 sources) Traumatic brain injury with loss of consciousness; Translations: [Unspecified intracranial injury with loss of consciousness of unspecified duration, initial encounter] Onset: 05-19-2024 04-28-2024 Episodic Other aftercare (1 source) Encounter for other orthopedic aftercare; Translations: [Encounter for other orthopedic aftercare] Onset: 05-29-2024 Episodic Other circulatory disease (1 source) Orthostatic hypotension; Translations: [Orthostatic hypotension] Onset: 05-19-2024 Episodic Other connective tissue disease (1 source) Repeated falls; Translations: [Repeated falls] Onset: 05-19-2024 Episodic Other connective tissue disease (1 source) Other muscle spasm; Translations: [Other muscle spasm] Onset: 05-19-2024 Episodic Other connective tissue disease (1 source) Other symptoms and signs involving the musculoskeletal system; Translations: [Other symptoms and signs involving the musculoskeletal system] Onset: 05-29-2024 Episodic Other eye disorders (1 source) Conjunctival hemorrhage, unspecified eye; Translations: [Conjunctival hemorrhage, unspecified eye] Onset: 05-29-2024 Episodic Other gastrointestinal disorders (1 source) Constipation, unspecified; Translations: [Constipation, unspecified] Onset: 05-31-2024 Episodic Other gastrointestinal disorders (1 source) Full incontinence of feces; Translations: [Full incontinence of feces] Onset: 05-25-2024 Episodic Other gastrointestinal disorders (1 source) Dysphagia, unspecified; Translations: [Dysphagia, unspecified] Onset: 05-19-2024 Episodic Other gastrointestinal disorders (1 source) Personal history of other diseases of the digestive system; Translations: [Personal history of other diseases of the digestive system] Onset: 05-19-2024 Episodic Other gastrointestinal disorders (1 source) Dysphagia, pharyngeal phase; Translations: [Dysphagia, pharyngeal phase] Onset: 05-19-2024 Episodic Other injuries and conditions due to external causes (1 source) Encounter for examination and observation following other accident; Translations: [Encounter for examination and observation following other accident] Onset: 05-03-2024 Episodic Other non-traumatic joint disorders (1 source) Pain in left shoulder; Translations: [Pain in left shoulder] Onset: 05-19-2024 Episodic Other upper respiratory disease (1 source) Edema of larynx; Translations: [Edema of larynx] Onset: 05-19-2024 Episodic Skull and face fractures (20 sources) Fracture of bone of nasal sinus; Translations: [Maxillary fracture, left side, initial encounter for closed fracture] Onset: 05-29-2024 04-19-2024 Episodic Spondylosis; intervertebral disc disorders; other back problems (20 sources) Stenosis of intervertebral foramina; Translations: [Spinal stenosis, cervical region] Onset: 05-19-2024 04-28-2024 Episodic Syncope (15 sources) Syncope; Translations: [Syncope and collapse] Onset: 05-29-2024 04-19-2024 Episodic Comment on above: AT TIMES Urinary tract infections (20 sources) Urinary tract infectious disease; Translations: [Urinary tract infection, site not specified] Onset: 05-19-2024 05-10-2024 Episodic Results Test Name Value Interpretation Reference Range Facility Bacteria Ur Culton Bacteria identified Cx Nom (U) ORGANISM ID: 1 10,000 -<50,000 CFU/ml Normal urogenital tushar Normal [facility] Comment on above: Performed By: #### 6 30-4 #### [facility] CLIA [id number] [facility] [address] STATES OF [facility] URINALYSIS, DIPSTICK ONLYon 10-05-2024 Bilirubin Ql (U) Negative Normal Negative [facility] Comment on above: Order Comment: Speci men Type: URINE SPECIMEN Ordering Facility: [facility] Address: [address] [place] [address] Performed By: #### U A #### [facility] CLIA [id number] [address] [place] [address] [place] Clarity (Unsp spec) Clear Normal Clear [facility] Comment on above: Order Comment: Speci men Type: URINE SPECIMEN Ordering Facility: [facility] Address: [address] [place] [address] Performed By: #### U A #### [facility] CLIA [id number] [facility] [place] [address] [place] Color (U) Yellow Normal Yellow [facility] Comment on above: Order Comment: Speci men Type: URINE SPECIMEN Ordering Facility: [facility] Address: [address] [place] [address] Performed By: #### U A #### [facility] CLIA [id number] [facility] [place] [id number] [place] Glucose Test strip (U) [Mass/Vol] Negative Normal Negative [facility] Comment on above: Order Comment: Speci men Type: URINE SPECIMEN Ordering Facility: [facility] Address: [address] [place] [address] Performed By: #### U A #### [facility] CLIA [id number] [address] [place] [id number] [place] Hemoglobin Ql (U) Negative Normal Negative [facility] Comment on above: Order Comment: Speci men Type: URINE SPECIMEN Ordering Facility: [facility] Address: [address] [place] [address] Performed By: #### U A #### [facility] CLIA [id number] [address] [place] [address] [place] Ketones Ql (U) Negative Normal Negative [facility] Comment on above: Order Comment: Speci men Type: URINE SPECIMEN Ordering Facility: [facility] Address: [address] [place] [address] Performed By: #### U A #### [facility] CLIA [id number] [address] [place] [address] [place] Leukocyte esterase Test strip Ql (U) Negative Normal Negative [facility] Comment on above: Order Comment: Speci men Type: URINE SPECIMEN Ordering Facility: [facility] Address: [address] [place] [address] Performed By: #### U A #### [facility] CLIA [id number] [address] [place] [address] [place] Nitrite Ql (U) Negative Normal Negative [facility] Comment on above: Order Comment: Speci men Type: URINE SPECIMEN Ordering Facility: [facility] Address: [address] [place] [address] Performed By: #### U A #### [facility] CLIA [id number] [address] [place] [id number] [place] pH (U) 6.0 [pH] Normal 5.0-8.0 [facility] Comment on above: Order Comment: Speci men Type: URINE SPECIMEN Ordering Facility: [facility] Address: [address] [place] [address] Performed By: #### U A #### [facility] CLIA [id number] [address] [place] [address] [place] Protein (U) [Mass/Vol] Trace Abnormal Negative [facility] Comment on above: Order Comment: Speci men Type: URINE SPECIMEN Ordering Facility: [facility] Address: [address] [place] [address] Performed By: #### U A #### [facility] CLIA [id number] [address] [place] [address] [place] Specific gravity (U) [Rel density] 1.014 Normal 1.005-1.030 [facility] Comment on above: Order Comment: Speci men Type: URINE SPECIMEN Ordering Facility: [facility] Address: [address] [place] [address] Performed By: #### U A #### [facility] CLIA [id number] [address] [place] [address] [place] Urobilinogen Ql (U) 1.0 EU/dL Normal 0.2-1.0 EU/dL [facility] Comment on above: Order Comment: Speci men Type: URINE SPECIMEN Ordering Facility: [facility] Address: [address] [place] [address] Performed By: #### U A #### [facility] CLIA [id number] [address] [place], [place] [id number] [place] Absolute lymphocyte countOrd ered By: Keven Etienne on 09-04-2024 Lymphocytes Auto (Unsp spec) [#/Vol] 2.41 10*3/uL 0.83-4.51 [facility] Anion gap in Serum or Plasma Ordered By: Keven Etienne on 09-04-2024 Anion gap [Moles/Vol] 12 mmol/L 5-[address] [facility] Automated lymphocyte count a s percentage of total leukocytesOrdered By: Keven Etienne on 09-04-2024 Lymphocytes/100 WBC Auto (Unsp spec) 27.0 % 19-41 [facility] BUN/creatinine ratioOrdered By: Keven Etienne on 09-04-2024 Urea nitrogen/Creatinine [Mass ratio] 13.7 mg/mg 10-20 [facility] Basophil percentageOrdered B y: Keven Etienne on 09-04-2024 Basophils/100 WBC (Bld) 0.4 % 0-1 [facility] Carbon dioxide, total [Moles /volume] in Central venous bloodOrdered By: Keven Etienne on 09-04-2024 CO2 [Moles/Vol] 26.1 mmol/L 21.0-32.0 [facility] Chloride assayOrdered By: Edwar Etienne on 09-04-2024 Chloride [Moles/Vol] 102 mmol/L 98-108 [facility] Eosinophil percentageOrdered By: Keven Etienne on 09-04-2024 Eosinophils/100 WBC (Bld) 5.9 % High 0-5 [facility] Erythrocyte distribution wid th ratioOrdered By: Keven Etienne on 09-04-2024 Erythrocyte distribution width (RBC) [Ratio] 12.4 % 11.6-14.6 [facility] Erythrocyte distribution wid th standard deviationOrdered By: Keven Etienne on 09-04-2024 Erythrocyte distribution width (RBC) [Ratio] 38.8 fl 35.1-43.9 [facility] Glomerular filtration rate ( GFR) estimation/1.73 sq m using serum, plasma, or whole bOrdered By: Keven Etienne on 09-04-2024 GFR/1.73 sq M.predicted among non-blacks MDRD (S/P/Bld) [Vol rate/Area] 82 mL/min/{1.73_m2} >60 [facility] Hematocrit Auto (Bld) [Volum e fraction]Ordered By: Keven Etienne on 09-04-2024 Hematocrit (Bld) [Volume fraction] 38.1 % Low 40-54 [facility] Hemoglobin measurementOrdere d By: Keven Etienne on 09-04-2024 Hemoglobin (Bld) [Mass/Vol] 12.7 g/dL Low 13.0-16.5 [facility] Immature granulocytes/100 WB C Auto (Bld)Ordered By: Keven Monicodollyjuan luis on 09-04-2024 Immature granulocytes/100 WBC (Bld) 0.300 % 0.0-0.9 [facility] MCV (mean corpuscular volume ) determinationOrdered By: frannycarverkeron Monicodollyjuan luis on 09-04-2024 MCV (RBC) [Entitic vol] 86.0 fL 80-94 [facility] Mean corpuscular hemoglobin (MCH) determinationOrdered By: frannycarverkeron Monicodollyjuan luis on 09-04-2024 MCH (RBC) [Entitic mass] 28.7 pg 27.0-32.0 [facility] Monocyte percentageOrdered B y: Keven Etienne on 09-04-2024 Monocytes/100 WBC (Bld) 8.4 % 0-10 [facility] Neutrophil percentageOrdered By: [facility] Hospitalkeron Etienen on 09-04-2024 Neutrophils/100 WBC (Bld) 58.0 % 47-70 [facility] Platelet countOrdered By: Edwar Etienne on 09-04-2024 Platelets (Bld) [#/Vol] 231 10*3/uL 150-450 [facility] Potassium measurement (mass/ volume)Ordered By: Keven Monicodollyjuan luis on 09-04-2024 Potassium (Unsp spec) [Mass/Vol] 4.2 mmol/L 3.3-5.1 [facility] RBC Auto (Bld) [#/Vol]Ordere d By: Keven Etienne on 09-04-2024 RBC (Bld) [#/Vol] 4.43 10*6/uL Low 4.6-6.2 [facility] Serum creatinine measurement (mass/volume)Ordered By: Edwarfrannycadenkeron Marcdollyjuan luis on 09-04-2024 Creatinine [Mass/Vol] 0.93 mg/dL 0.70-1.[address] [facility] Serum glucose measurement (m ass/volume)Ordered By: Keven Etienne on 09-04-2024 Glucose [Mass/Vol] 105 mg/dL High 70-99 [facility] Serum or plasma calcium ratna urement (mass/volume)Ordered By: Keven Etienne on 09-04-2024 Calcium [Mass/Vol] 9.3 mg/dL 7.6-11.0 [facility] Serum or plasma urea nitroge n measurement (mass/volume)Ordered By: Keven Etienne on 09-04-2024 Urea nitrogen [Mass/Vol] 13 mg/dL 4-19 [facility] Sodium levelOrdered By: Rita pattonambika Jaimie on 09-04-2024 Sodium [Moles/Vol] 140 mmol/L 133-145 [facility] White blood cell (WBC) count Ordered By: Keven Etienne on 09-04-2024 WBC (Bld) [#/Vol] 8.9 10*3/uL 4.4-11.0 [facility] Absolute lymphocyte countOrd ered By: Keven Etienne on 08-14-2024 Lymphocytes Auto (Unsp spec) [#/Vol] 2.50 10*3/uL 0.83-4.51 [facility] Anion gap in Serum or Plasma Ordered By: Keven Etienne on 08-14-2024 Anion gap [Moles/Vol] 11 mmol/L 5-[address] [facility] Automated lymphocyte count a s percentage of total leukocytesOrdered By: Keven Etienne on 08-14-2024 Lymphocytes/100 WBC Auto (Unsp spec) 33.6 % 19-41 [facility] BUN/creatinine ratioOrdered By: Keven Etienne on 08-14-2024 Urea nitrogen/Creatinine [Mass ratio] 14.3 mg/mg 10-20 [facility] Basophil percentageOrdered B y: Keven Etienne on 08-14-2024 Basophils/100 WBC (Bld) 0.7 % 0-1 [facility] Bilirubin, totalOrdered By: Keven Etienne on 08-14-2024 Bilirubin [Mass/Vol] 0.30 mg/dL 0.00-1.30 [facility] Carbon dioxide, total [Moles /volume] in Central venous bloodOrdered By: Keven Etienne on 08-14-2024 CO2 [Moles/Vol] 24.6 mmol/L 21.0-32.0 [facility] Chloride assayOrdered By: Edwar Etienne on 08-14-2024 Chloride [Moles/Vol] 105 mmol/L 98-108 [facility] Eosinophil percentageOrdered By: Keven Etienne on 08-14-2024 Eosinophils/100 WBC (Bld) 3.8 % 0-5 [facility] Erythrocyte distribution wid th ratioOrdered By: Keven Etienne on 08-14-2024 Erythrocyte distribution width (RBC) [Ratio] 12.7 % 11.6-14.6 [facility] Erythrocyte distribution wid th standard deviationOrdered By: Keven Etienne on 08-14-2024 Erythrocyte distribution width (RBC) [Ratio] 41.1 fl 35.1-43.9 [facility] Glomerular filtration rate ( GFR) estimation/1.73 sq m using serum, plasma, or whole bOrdered By: Keven Etienne on 08-14-2024 GFR/1.73 sq M.predicted among non-blacks MDRD (S/P/Bld) [Vol rate/Area] 88 mL/min/{1.73_m2} >60 [facility] Hematocrit Auto (Bld) [Volum e fraction]Ordered By: Keven Etienne on 08-14-2024 Hematocrit (Bld) [Volume fraction] 37.9 % Low 40-54 [facility] Hemoglobin measurementOrdere d By: Keven Etienne on 08-14-2024 Hemoglobin (Bld) [Mass/Vol] 12.6 g/dL Low 13.0-16.5 [facility] Immature granulocytes/100 WB C Auto (Bld)Ordered By: Keven Etienne on 08-14-2024 Immature granulocytes/100 WBC (Bld) 0.300 % 0.0-0.9 [facility] MCV (mean corpuscular volume ) determinationOrdered By: Keven Etienne on 08-14-2024 MCV (RBC) [Entitic vol] 87.7 fL 80-94 [facility] Mean corpuscular hemoglobin (MCH) determinationOrdered By: Keven Etienne on 08-14-2024 MCH (RBC) [Entitic mass] 29.2 pg 27.0-32.0 [facility] Monocyte percentageOrdered B y: Keven Etienne on 08-14-2024 Monocytes/100 WBC (Bld) 9.1 % 0-10 [facility] Neutrophil percentageOrdered By: Keven Etienne on 08-14-2024 Neutrophils/100 WBC (Bld) 52.5 % 47-70 [facility] No Panel InformationOrdered By: Keven Etienne on 08-14-2024 18 U/L <38 [facility] Platelet countOrdered By: Edwar Etienne on 08-14-2024 Platelets (Bld) [#/Vol] 201 10*3/uL 150-450 [facility] Potassium measurement (mass/ volume)Ordered By: Keven Etienne on 08-14-2024 Potassium (Unsp spec) [Mass/Vol] 3.9 mmol/L 3.3-5.1 [facility] RBC Auto (Bld) [#/Vol]Ordere d By: Keven Etienne on 08-14-2024 RBC (Bld) [#/Vol] 4.32 10*6/uL Low 4.6-6.2 [facility] Serum creatinine measurement (mass/volume)Ordered By: Keven Etienne on 08-14-2024 Creatinine [Mass/Vol] 0.82 mg/dL 0.70-1.[address] [facility] Serum globulin measurementOr dered By: Keven Etienne on 08-14-2024 Globulin (S) [Mass/Vol] 2.3 g/dL 2.2-4.2 [facility] Serum glucose measurement (m ass/volume)Ordered By: Keven Etienne on 08-14-2024 Glucose [Mass/Vol] 91 mg/dL 70-99 [facility] Serum or plasma alanine olmedo otransferase (ALT) measurementOrdered By: Keven Etienne on 08-14-2024 ALT [Catalytic activity/Vol] 22 U/L <47 [facility] Serum or plasma albumin ratna urement (mass/volume)Ordered By: Keven Etienne on 08-14-2024 Albumin [Mass/Vol] 3.5 g/dL 3.4-4.8 [facility] Serum or plasma albumin/glob ulin mass ratioOrdered By: Keven Etienne on 08-14-2024 Albumin/Globulin [Mass ratio] 1.6 {ratio} 0.9-2.4 [facility] Serum or plasma alkaline garry sphatase measurementOrdered By: Keven Etienne on 08-14-2024 ALP [Catalytic activity/Vol] 113 U/L 40-129 [facility] Serum or plasma calcium ratna urement (mass/volume)Ordered By: Keven Etienne on 08-14-2024 Calcium [Mass/Vol] 9.1 mg/dL 7.6-11.0 [facility] Serum or plasma urea nitroge n measurement (mass/volume)Ordered By: Keven Etienne on 08-14-2024 Urea nitrogen [Mass/Vol] 12 mg/dL 4-19 [facility] Sodium levelOrdered By: Rita pattonambika Jaimie on 08-14-2024 Sodium [Moles/Vol] 141 mmol/L 133-145 [facility] Total proteinOrdered By: Robyjuan luis ramireskeron Etienne on 08-14-2024 Protein [Mass/Vol] 5.8 g/dL Low 5.9-8.4 [facility] White blood cell (WBC) count Ordered By: Keven Etienne on 08-14-2024 WBC (Bld) [#/Vol] 7.5 10*3/uL 4.4-11.0 [facility] 12 Lead EKGon 08-11-2024 12 Lead EKG Normal [facility] Absolute lymphocyte countOrd ered By: Keanu Zurita on 08-11-2024 Lymphocytes Auto (Unsp spec) [#/Vol] 1.80 10*3/uL 0.83-4.51 [facility] Anion gap in Serum or Plasma Ordered By: Keanu Zurita on 08-11-2024 Anion gap [Moles/Vol] 11 mmol/L 5- [facility] Automated lymphocyte count a s percentage of total leukocytesOrdered By: Keanu Zurita on 08-11-2024 Lymphocytes/100 WBC Auto (Unsp spec) 24.2 % -41 [facility] BUN/creatinine ratioOrdered By: Keanu Zurita on 08-11-2024 Urea nitrogen/Creatinine [Mass ratio] 16.9 mg/mg - [facility] Basic Metabolic Profile (BMP )on 08-11-2024 BUN/CRE 16.9 RATIO Normal - [facility] Comment on above: Performed By: #### L 500.2500, L100.0100 ####[facility] [address] [place], [address] Calcium [Mass/Vol] 9.0 mg/dL Normal 7.6-11.0 [facility] Comment on above: Performed By: #### L 500.2500, L100.0100 ####[facility] [address] [place], [address] Chloride [Moles/Vol] 102 mmol/L Normal 98-108 [facility] Comment on above: Performed By: #### L 500.2500, L100.0100 ####[facility] [address] [place], [address] CO2 [Moles/Vol] 25.3 mmol/L Normal 21.0-32.0 [facility] Comment on above: Performed By: #### L 500.2500, L100.0100 ####[facility] [address] [place], [address] ECRCL 66.39 ml/min Normal 50-250 [facility] Comment on above: Performed By: #### L 500.2500, L100.0100 ####[facility] [address] [place], [address] GAP 11 Normal 5-15 [facility] Comment on above: Performed By: #### L 500.2500, L100.0100 ####[facility] [address] [place], [address] GFR/1.73 sq M.predicted among non-blacks MDRD (S/P/Bld) [Vol rate/Area] 87 mL/min/{1.73_m2} Normal >60 [facility] Comment on above: Result Comment: mL/m in/1.73m2 CKD-EPI Creatinine Equation (2020) Performed By: #### L 500.2500, L100.0100 ####[facility] [address] [place], [address] Potassium [Moles/Vol] 4.2 mmol/L Normal 3.3-5.[address] [facility] Comment on above: Result Comment: Hemo lysis present, Results??could be affected.?? Performed By: #### L 500.2500, L100.0100 ####[facility] [address] [place], [address] Sodium [Moles/Vol] 138 mmol/L Normal 133-145 [facility] Comment on above: Performed By: #### L 500.2500, L100.0100 ####[facility] [address] [place], [address] Creatinine [Mass/Vol] 0.83 mg/dL Normal 0.70-1.[address] [facility] Comment on above: Performed By: #### L 500.2500, L100.0100 ####[facility] [address] [place], [address] Glucose [Mass/Vol] 98 mg/dL Normal 70-99 [facility] Comment on above: Performed By: #### L 500.2500, L100.0100 ####[facility] [address] [place], [address] Urea nitrogen [Mass/Vol] 14 mg/dL Normal 4-19 [facility] Comment on above: Performed By: #### L 500.2500, L100.0100 ####[facility] [address] [place], [address] Basophil percentageOrdered B y: Keanu Zurita on 08-11-2024 Basophils/100 WBC (Bld) 0.5 % 0-1 [facility] Bilirubin Test strip Ql (U)O rdered By: Keanu Zurita on 08-11-2024 Bilirubin Ql (U) Negative Negative [facility] Brain/Head without Contrasto n 08-11-2024 Brain/Head without Contrast Normal [facility] CBC W/Diff, Automatedon 07- Absolute Lymph 1.80 X10 3/uL Normal 0.83-4.51 [facility] Comment on above: Performed By: #### L 500.2500, L100.0100 ####[facility] [address] [place], [address] Absolute Neut 4.7 X10 3/uL Normal 2.0-7.7 [facility] Comment on above: Performed By: #### L 500.2500, L100.0100 ####[facility] [address] [place], [address] Basophils/100 WBC (Bld) 0.5 % Normal 0-1 [facility] Comment on above: Performed By: #### L 500.2500, L100.0100 ####[facility] [address] [place], [address] Eosinophils/100 WBC (Bld) 2.6 % Normal 0-5 [facility] Comment on above: Performed By: #### L 500.2500, L100.0100 ####[facility] [address] [place], [address] Erythrocyte distribution width (RBC) [Ratio] 12.6 % Normal 11.6-14.6 [facility] Comment on above: Performed By: #### L 500.2500, L100.0100 ####[facility] [address] [place], [address] Hematocrit (Bld) [Volume fraction] 38.3 % Low 40-54 [facility] Comment on above: Performed By: #### L 500.2500, L100.0100 ####[facility] [address] [place], [address] Hemoglobin (Bld) [Mass/Vol] 12.9 g/dL Low 13.0-16.5 [facility] Comment on above: Performed By: #### L 500.2500, L100.0100 ####[facility] [address] [place], [address] IG% 0.400 Normal 0.0-0.9 [facility] Comment on above: Result Comment: IG% - Immature Granulocytes (promyelocytes, myelocytes andmetamyelocytes) > 1% indicates that a LEFT SHIFT is Present. Performed By: #### L 500.2500, L100.0100 ####[facility] [address] [place], [address] Lymphocytes/100 WBC (Bld) 24.2 % Normal 19-41 [facility] Comment on above: Performed By: #### L 500.2500, L100.0100 ####[facility] [address] [place], [address] MCH (RBC) [Entitic mass] 28.9 pg Normal 27.0-32.0 [facility] Comment on above: Performed By: #### L 500.2500, L100.0100 ####[facility] [address] [place], [address] MCHC (RBC) [Mass/Vol] 33.7 g/dL Normal 32-[address] [facility] Comment on above: Performed By: #### L 500.2500, L100.0100 ####[facility] [address] [place], [address] MCV (RBC) [Entitic vol] 85.7 fL Normal 80-94 [facility] Comment on above: Performed By: #### L 500.2500, L100.0100 ####[facility] [address] [place], [address] Monocytes/100 WBC (Bld) 9.1 % Normal 0-10 [facility] Comment on above: Performed By: #### L 500.2500, L100.0100 ####[facility] [address] [place], [address] Neutrophils/100 WBC (Bld) 63.2 % Normal 47-70 [facility] Comment on above: Performed By: #### L 500.2500, L100.0100 ####[facility] [address] [place], [address] Nucleated RBC (Bld) [#/Vol] 0 10*3/uL Normal 0-5 [facility] Comment on above: Performed By: #### L 500.2500, L100.0100 ####[facility] [address] [place], [address] Platelet mean volume (Bld) [Entitic vol] 8.5 fL Normal 6.2-12.0 [facility] Comment on above: Performed By: #### L 500.2500, L100.0100 ####[facility] [address] [place], [address] Platelets (Bld) [#/Vol] 216 10*3/uL Normal 150-450 [facility] Comment on above: Performed By: #### L 500.2500, L100.0100 ####[facility] [address] [place], [address] RBC (Bld) [#/Vol] 4.47 10*6/uL Low 4.6-6.2 [facility] Comment on above: Performed By: #### L 500.2500, L100.0100 ####[facility] [address] [place], [address] RDW SD 39.3 fl Normal 35.1-43.9 [facility] Comment on above: Performed By: #### L 500.2500, L100.0100 ####[facility] [address] [place], [address] WBC (Bld) [#/Vol] 7.5 10*3/uL Normal 4.4-11.0 [facility] Comment on above: Performed By: #### L 500.2500, L100.0100 ####[facility] [address] [place], [address] Carbon dioxide, total [Moles /volume] in Central venous bloodOrdered By: Keanu Zurita on 08-11-2024 CO2 [Moles/Vol] 25.3 mmol/L 21.0-32.0 [facility] Chloride assayOrdered By: Shane Zurita on 08-11-2024 Chloride [Moles/Vol] 102 mmol/L 98-108 [facility] Emergency Department Summary on 08-11-2024 Emergency Department Summary Normal [facility] Eosinophil percentageOrdered By: Keanu Zurita on 08-11-2024 Eosinophils/100 WBC (Bld) 2.6 % 0-5 [facility] Erythrocyte distribution wid th ratioOrdered By: Keanu Zurita on 08-11-2024 Erythrocyte distribution width (RBC) [Ratio] 12.6 % 11.6-14.6 [facility] Erythrocyte distribution wid th standard deviationOrdered By: Keanu Zurita on 08-11-2024 Erythrocyte distribution width (RBC) [Ratio] 39.3 fl 35.1-43.9 [facility] Glomerular filtration rate ( GFR) estimation/1.73 sq m using serum, plasma, or whole bOrdered By: Keanu Zurita on 08-11-2024 GFR/1.73 sq M.predicted among non-blacks MDRD (S/P/Bld) [Vol rate/Area] 87 mL/min/{1.73_m2} >60 [facility] Hematocrit Auto (Bld) [Volum e fraction]Ordered By: Keanu Zurita on 08-11-2024 Hematocrit (Bld) [Volume fraction] 38.3 % Low 40-54 [facility] Hemoglobin measurementOrdere d By: Keanu Zurita on 08-11-2024 Hemoglobin (Bld) [Mass/Vol] 12.9 g/dL Low 13.0-16.5 [facility] Immature granulocytes/100 WB C Auto (Bld)Ordered By: Keanu Zurita on 08-11-2024 Immature granulocytes/100 WBC (Bld) 0.400 % 0.0-0.9 [facility] Ketones Test strip Ql (U)Ord ered By: Keanu Zurita on 08-11-2024 Ketones Ql (U) Negative Negative [facility] MCV (mean corpuscular volume ) determinationOrdered By: Keanu Zurita on 08-11-2024 MCV (RBC) [Entitic vol] 85.7 fL 80-94 [facility] Mean corpuscular hemoglobin (MCH) determinationOrdered By: Keanu Zurita on 08-11-2024 MCH (RBC) [Entitic mass] 28.9 pg 27.0-32.0 [facility] Monocyte percentageOrdered B y: Keanu Zurita on 08-11-2024 Monocytes/100 WBC (Bld) 9.1 % 0-10 [facility] Mucus LM Ql (Urine sed)Order ed By: Keanu Zurita on 08-11-2024 Mucus Ql (Urine sed) 0 SEEN /hpf [facility] Neutrophil percentageOrdered By: Keanu Zurita on 08-11-2024 Neutrophils/100 WBC (Bld) 63.2 % 47-70 [facility] Nitrite Test strip Ql (U)Ord ered By: Keanu Zurita on 08-11-2024 Nitrite Ql (U) Negative Negative [facility] Platelet countOrdered By: Shane Zurita on 08-11-2024 Platelets (Bld) [#/Vol] 216 10*3/uL 150-450 [facility] Potassium measurement (mass/ volume)Ordered By: Keanu Zurita on 08-11-2024 Potassium (Unsp spec) [Mass/Vol] 4.2 mmol/L 3.3-5.1 [facility] Protein Test strip Ql (U)Ord ered By: Keanu Zurita on 08-11-2024 Protein Ql (U) 15 mg/dl High Negative [facility] RBC Auto (Bld) [#/Vol]Ordere d By: Keanu Zurita on 08-11-2024 RBC (Bld) [#/Vol] 4.47 10*6/uL Low 4.6-6.2 [facility] Serum creatinine measurement (mass/volume)Ordered By: Keanu Zurita on 08-11-2024 Creatinine [Mass/Vol] 0.83 mg/dL 0.70-1.[address] [facility] Serum glucose measurement (m ass/volume)Ordered By: Keanu Zurita on 08-11-2024 Glucose [Mass/Vol] 98 mg/dL 70-99 [facility] Serum or plasma calcium ratna urement (mass/volume)Ordered By: Keanu Zurita on 08-11-2024 Calcium [Mass/Vol] 9.0 mg/dL 7.6-11.0 [facility] Serum or plasma urea nitroge n measurement (mass/volume)Ordered By: Keanu Zurita on 08-11-2024 Urea nitrogen [Mass/Vol] 14 mg/dL 4-19 [facility] Sodium levelOrdered By: Keanu Zurita on 08-11-2024 Sodium [Moles/Vol] 138 mmol/L 133-145 [facility] Squamous epithelial cells de tection in urine sediment by light microscopyOrdered By: Keanu Zurita on 08-11-2024 Epithelial cells.squamous LM Ql (Urine sed) 0 SEEN /hpf 0-5 [facility] Urinalysis, Completeon 08-11 BACTERIA 0 SEEN Normal None Seen [facility] Comment on above: Order Comment: CLEAN CATCH Performed By: #### L 400.0001 ####[facility] [address] [place], [address] EPI,SQUAMOUS 0 SEEN Normal 0-5 [facility] Comment on above: Order Comment: CLEAN CATCH Performed By: #### L 400.0001 ####[facility] [address] [place], [address] Mucus Ql (Urine sed) 0 SEEN Normal [facility] Comment on above: Order Comment: CLEAN CATCH Performed By: #### L 400.0001 ####[facility] [address] [place], [address] RBC 0 SEEN Normal 0-5 [facility] Comment on above: Order Comment: CLEAN CATCH Performed By: #### L 400.0001 ####[facility] [address] [place], [address] WBC 0 SEEN Normal 0-5 [facility] Comment on above: Order Comment: CLEAN CATCH Performed By: #### L 400.0001 ####[facility] [address] [place], [place], [address] Urine clarityOrdered By: Eleanor Zurita on 08-11-2024 Clarity (U) Clear Clear [facility] Urine color determinationOrd ered By: Keanu Zurita on 08-11-2024 Color (U) YELLOW Yellow [facility] Urine glucose detectionOrder ed By: Keanu Zurita on 08-11-2024 Glucose Ql (U) Normal mg/dl Normal [facility] Urine leukocyte esterase det ection by dipstickOrdered By: Keanu Zurita on 08-11-2024 Leukocyte esterase Test strip Ql (U) Negative Negative [facility] Urine pHOrdered By: Keanu adrian on 08-11-2024 pH (U) 6.0 [pH] 5.0 - 8.0 [facility] Urine sediment bacteria coun t by microscopy (number/high power field)Ordered By: Keanu Zurita on 08-11-2024 Bacteria LM.HPF (Urine sed) [#/Area] 0 /[HPF] None Seen [facility] Urine specific gravity measu rementOrdered By: Keanu Zurita on 08-11-2024 Specific gravity (U) [Rel density] 1.015 1.002-1.030 [facility] Urine urobilinogen measureme ntOrdered By: Keanu Zurita on 08-11-2024 Urobilinogen Ql (U) 1 mg/dl High Normal [facility] White blood cell (WBC) count Ordered By: Keanu Zurita on 08-11-2024 WBC (Bld) [#/Vol] 7.5 10*3/uL 4.4-11.0 [facility] White blood cell countOrdere d By: Keanu Zurita on 08-11-2024 White blood cell count 0 SEEN /hpf 0-5 [facility] Absolute lymphocyte countOrd ered By: Yu Bradley on 08-06-2024 Lymphocytes Auto (Unsp spec) [#/Vol] 2.53 10*3/uL 0.83-4.51 [facility] Anion gap in Serum or Plasma Ordered By: Yu Bradley on 08-06-2024 Anion gap [Moles/Vol] 10 mmol/L 5-[address] [facility] Automated lymphocyte count a s percentage of total leukocytesOrdered By: Yu Bradley on 08-06-2024 Lymphocytes/100 WBC Auto (Unsp spec) 36.2 % 19- [facility] BUN/creatinine ratioOrdered By: Yu Bradley on 08-06-2024 Urea nitrogen/Creatinine [Mass ratio] 15.7 mg/mg 10- [facility] Basic Metabolic Profile (BMP )on 08-06-2024 BUN/CRE 15.7 RATIO Normal - [facility] Comment on above: Performed By: #### L 100.0100, L500.2500, L509.6001 ####[facility] [address] [place], [address] Calcium [Mass/Vol] 8.7 mg/dL Normal 7.6-11.0 [facility] Comment on above: Performed By: #### L 100.0100, L500.2500, L509.6001 ####[facility] [address] [place], [address] Chloride [Moles/Vol] 106 mmol/L Normal 98-108 [facility] Comment on above: Performed By: #### L 100.0100, L500.2500, L509.6001 ####[facility] [address] [place], [address] CO2 [Moles/Vol] 23.8 mmol/L Normal 21.0-32.0 [facility] Comment on above: Performed By: #### L 100.0100, L500.2500, L509.6001 ####[facility] [address] [place], [address] Creatinine [Mass/Vol] 0.91 mg/dL Normal 0.70-1.[address] [facility] Comment on above: Performed By: #### L 100.0100, L500.2500, L509.6001 ####[facility] [address] [place], [address] ECRCL 60.55 ml/min Normal 50-250 [facility] Comment on above: Performed By: #### L 100.0100, L500.2500, L509.6001 ####[facility] [address] [place], [address] GAP 10 Normal 5-15 [facility] Comment on above: Performed By: #### L 100.0100, L500.2500, L509.6001 ####[facility] [address] [place], [address] GFR/1.73 sq M.predicted among non-blacks MDRD (S/P/Bld) [Vol rate/Area] 85 mL/min/{1.73_m2} Normal >60 [facility] Comment on above: Result Comment: mL/m in/1.73m2 CKD-EPI Creatinine Equation (2020) Performed By: #### L 100.0100, L500.2500, L509.6001 ####[facility] [address] [place], [address] Glucose [Mass/Vol] 93 mg/dL Normal 70-99 [facility] Comment on above: Performed By: #### L 100.0100, L500.2500, L509.6001 ####[facility] [address] [place], [address] Potassium [Moles/Vol] 4.1 mmol/L Normal 3.3-5.[address] [facility] Comment on above: Performed By: #### L 100.0100, L500.2500, L509.6001 ####[facility] [address] [place], [address] Sodium [Moles/Vol] 140 mmol/L Normal 133-145 [facility] Comment on above: Performed By: #### L 100.0100, L500.2500, L509.6001 ####[facility] [address] [place], [address] Urea nitrogen [Mass/Vol] 14 mg/dL Normal 4-19 [facility] Comment on above: Performed By: #### L 100.0100, L500.2500, L509.6001 ####[facility] [address] [place], [address] Basophil percentageOrdered B y: Yu Bradley on 08-06-2024 Basophils/100 WBC (Bld) 0.6 % 0-1 [facility] CBC W/Diff, Automatedon 06-2 Absolute Lymph 2.53 X10 3/uL Normal 0.83-4.51 [facility] Comment on above: Performed By: #### L 100.0100, L500.2500, L509.6001 ####[facility] [address] [place], [address] Absolute Neut 3.4 X10 3/uL Normal 2.0-7.7 [facility] Comment on above: Performed By: #### L 100.0100, L500.2500, L509.6001 ####[facility] [address] [place], [address] Basophils/100 WBC (Bld) 0.6 % Normal 0-1 [facility] Comment on above: Performed By: #### L 100.0100, L500.2500, L509.6001 ####[facility] [address] [place], [address] Eosinophils/100 WBC (Bld) 4.2 % Normal 0-5 [facility] Comment on above: Performed By: #### L 100.0100, L500.2500, L509.6001 ####[facility] [address] [place], [address] Erythrocyte distribution width (RBC) [Ratio] 12.8 % Normal 11.6-14.6 [facility] Comment on above: Performed By: #### L 100.0100, L500.2500, L509.6001 ####[facility] [address] [place], [address] Hematocrit (Bld) [Volume fraction] 34.8 % Low 40-54 [facility] Comment on above: Performed By: #### L 100.0100, L500.2500, L509.6001 ####[facility] [address] [place], [address] Hemoglobin (Bld) [Mass/Vol] 11.6 g/dL Low 13.0-16.5 [facility] Comment on above: Performed By: #### L 100.0100, L500.2500, L509.6001 ####[facility] [address] [place], [address] IG% 0.300 Normal 0.0-0.9 [facility] Comment on above: Result Comment: IG% - Immature Granulocytes (promyelocytes, myelocytes andmetamyelocytes) > 1% indicates that a LEFT SHIFT is Present. Performed By: #### L 100.0100, L500.2500, L509.6001 ####[facility] [address] [place], [address] Lymphocytes/100 WBC (Bld) 36.2 % Normal 19-41 [facility] Comment on above: Performed By: #### L 100.0100, L500.2500, L509.6001 ####[facility] [address] [place], [address] MCH (RBC) [Entitic mass] 28.9 pg Normal 27.0-32.0 [facility] Comment on above: Performed By: #### L 100.0100, L500.2500, L509.6001 ####[facility] [address] [place], [address] MCHC (RBC) [Mass/Vol] 33.3 g/dL Normal 32-[address] [facility] Comment on above: Performed By: #### L 100.0100, L500.2500, L509.6001 ####[facility] [address] [place], [address] MCV (RBC) [Entitic vol] 86.8 fL Normal 80-94 [facility] Comment on above: Performed By: #### L 100.0100, L500.2500, L509.6001 ####[facility] [address] [place], [address] Monocytes/100 WBC (Bld) 10.5 % High 0-10 [facility] Comment on above: Performed By: #### L 100.0100, L500.2500, L509.6001 ####[facility] [address] [place], [address] Neutrophils/100 WBC (Bld) 48.2 % Normal 47-70 [facility] Comment on above: Performed By: #### L 100.0100, L500.2500, L509.6001 ####[facility] [address] [place], [address] Nucleated RBC (Bld) [#/Vol] 0 10*3/uL Normal 0-5 [facility] Comment on above: Performed By: #### L 100.0100, L500.2500, L509.6001 ####[facility] [address] [place], [address] Platelet mean volume (Bld) [Entitic vol] 8.6 fL Normal 6.2-12.0 [facility] Comment on above: Performed By: #### L 100.0100, L500.2500, L509.6001 ####[facility] [address] [place], [address] Platelets (Bld) [#/Vol] 186 10*3/uL Normal 150-450 [facility] Comment on above: Performed By: #### L 100.0100, L500.2500, L509.6001 ####[facility] [address] [place], [address] RBC (Bld) [#/Vol] 4.01 10*6/uL Low 4.6-6.2 [facility] Comment on above: Performed By: #### L 100.0100, L500.2500, L509.6001 ####[facility] [address] [place], [address] RDW SD 40.7 fl Normal 35.1-43.9 [facility] Comment on above: Performed By: #### L 100.0100, L500.2500, L509.6001 ####[facility] [address] [place], [address] WBC (Bld) [#/Vol] 7.0 10*3/uL Normal 4.4-11.0 [facility] Comment on above: Performed By: #### L 100.0100, L500.2500, L509.6001 ####[facility] [address] [place], [address] Carbon dioxide, total [Moles /volume] in Central venous bloodOrdered By: Yu Bradley on 08-06-2024 CO2 [Moles/Vol] 23.8 mmol/L 21.0-32.0 [facility] Chloride assayOrdered By: Yady Bradley on 08-06-2024 Chloride [Moles/Vol] 106 mmol/L 98-108 [facility] Eosinophil percentageOrdered By: Yu Bradley on 08-06-2024 Eosinophils/100 WBC (Bld) 4.2 % 0-5 [facility] Erythrocyte distribution wid th ratioOrdered By: Yu Bradley on 08-06-2024 Erythrocyte distribution width (RBC) [Ratio] 12.8 % 11.6-14.6 [facility] Erythrocyte distribution wid th standard deviationOrdered By: Yu Bradley on 08-06-2024 Erythrocyte distribution width (RBC) [Ratio] 40.7 fl 35.1-43.9 [facility] Glomerular filtration rate ( GFR) estimation/1.73 sq m using serum, plasma, or whole bOrdered By: Yu Bradley on 08-06-2024 GFR/1.73 sq M.predicted among non-blacks MDRD (S/P/Bld) [Vol rate/Area] 85 mL/min/{1.73_m2} >60 [facility] Hematocrit Auto (Bld) [Volum e fraction]Ordered By: Yu Bradley on 08-06-2024 Hematocrit (Bld) [Volume fraction] 34.8 % Low 40-54 [facility] Hemoglobin measurementOrdere d By: Yu Bradley on 08-06-2024 Hemoglobin (Bld) [Mass/Vol] 11.6 g/dL Low 13.0-16.5 [facility] Immature granulocytes/100 WB C Auto (Bld)Ordered By: Yu Bradley on 08-06-2024 Immature granulocytes/100 WBC (Bld) 0.300 % 0.0-0.9 [facility] L509.6001on 08-06-2024 CORTISOL 16.30 ug/dL Normal 6.02-18.40 [facility] Comment on above: Performed By: #### L 100.0100, L500.2500, L509.6001 ####[facility] [address] [place], [address] MCV (mean corpuscular volume ) determinationOrdered By: Yu Bradley on 08-06-2024 MCV (RBC) [Entitic vol] 86.8 fL 80-94 [facility] Mean corpuscular hemoglobin (MCH) determinationOrdered By: Yu Bradley on 08-06-2024 MCH (RBC) [Entitic mass] 28.9 pg 27.0-32.0 [facility] Monocyte percentageOrdered B y: Yu Bradley on 08-06-2024 Monocytes/100 WBC (Bld) 10.5 % High 0-10 [facility] Neutrophil percentageOrdered By: Yu Bradley on 08-06-2024 Neutrophils/100 WBC (Bld) 48.2 % 47-70 [facility] Platelet countOrdered By: Yady Bradley on 08-06-2024 Platelets (Bld) [#/Vol] 186 10*3/uL 150-450 [facility] Potassium measurement (mass/ volume)Ordered By: Yu Bradley on 08-06-2024 Potassium (Unsp spec) [Mass/Vol] 4.1 mmol/L 3.3-5.1 [facility] RBC Auto (Bld) [#/Vol]Ordere d By: Yu Bradley on 08-06-2024 RBC (Bld) [#/Vol] 4.01 10*6/uL Low 4.6-6.2 [facility] Serum creatinine measurement (mass/volume)Ordered By: Yu Bradley on 08-06-2024 Creatinine [Mass/Vol] 0.91 mg/dL 0.70-1.[address] [facility] Serum glucose measurement (m ass/volume)Ordered By: Yu Bradley on 08-06-2024 Glucose [Mass/Vol] 93 mg/dL 70-99 [facility] Serum or plasma calcium ratna urement (mass/volume)Ordered By: Yu Bradley on 08-06-2024 Calcium [Mass/Vol] 8.7 mg/dL 7.6-11.0 [facility] Serum or plasma cortisol darline surement (mass/volume)Ordered By: Yu Bradley on 08-06-2024 Cortisol [Mass/Vol] 16.30 ug/dL 6.02-18.40 [facility] Serum or plasma urea nitroge n measurement (mass/volume)Ordered By: Yu Bradley on 08-06-2024 Urea nitrogen [Mass/Vol] 14 mg/dL 4-19 [facility] Sodium levelOrdered By: Kj Bradley on 08-06-2024 Sodium [Moles/Vol] 140 mmol/L 133-145 [facility] White blood cell (WBC) count Ordered By: Yu Bradley on 08-06-2024 WBC (Bld) [#/Vol] 7.0 10*3/uL 4.4-11.0 [facility] Absolute lymphocyte countOrd ered By: Kayode Woods on 08-05-2024 Lymphocytes Auto (Unsp spec) [#/Vol] 2.63 10*3/uL 0.83-4.51 [facility] Anion gap in Serum or Plasma Ordered By: Kayode Woods on 08-05-2024 Anion gap [Moles/Vol] 12 mmol/L 5-[address] [facility] Automated blood erythrocyte countOrdered By: Kayode Woods on 08-05-2024 RBC (Bld) [#/Vol] 4.22 10*6/uL Low 4.6-6.2 [facility] Comment on above: Performed By: #### L 503.6005, L501.2450, L100.0100, L500.4050, L501.4021 ####[facility] [address] [place], [place], [id number] Automated blood hematocrit ( percentage)Ordered By: Kayode Woods on 08-05-2024 Hematocrit (Bld) [Volume fraction] 37.0 % Low 40-54 [facility] Comment on above: Performed By: #### L 503.6005, L501.2450, L100.0100, L500.4050, L501.4021 ####[facility] [address] [place], [place], [address] Automated lymphocyte count a s percentage of total leukocytesOrdered By: Kayode Woods on 08-05-2024 Lymphocytes/100 WBC Auto (Unsp spec) 31.4 % 19-41 [facility] BUN/creatinine ratioOrdered By: Kayode Alexandraer on 08-05-2024 Urea nitrogen/Creatinine [Mass ratio] 21.1 mg/mg High 10-20 [facility] Basophil percentageOrdered B y: Kayode Woods on 08-05-2024 Basophils/100 WBC (Bld) 0.5 % Normal 0-1 [facility] Comment on above: Performed By: #### L 503.6005, L501.2450, L100.0100, L500.4050, L501.4021 ####[facility] [address] [place], [place], [id number] Bilirubin Test strip Ql (U)O rdered By: Kayode Alexandraer on 08-05-2024 Bilirubin Ql (U) Negative Negative [facility] Bilirubin, totalOrdered By: Kayode Alexandraer on 08-05-2024 Bilirubin [Mass/Vol] 0.41 mg/dL Normal 0.00-1.30 [facility] Comment on above: Performed By: #### L 503.6005, L501.2450, L100.0100, L500.4050, L501.4021 ####[facility] [address] [place], [place], [id number] Brain/Head without Contrasto n 08-05-2024 Brain/Head without Contrast Normal [facility] CBC W/Diff, Automatedon 07-10 Absolute Lymph 2.63 X10 3/uL Normal 0.83-4.51 [facility] Comment on above: Performed By: #### L 503.6005, L501.2450, L100.0100, L500.4050, L501.4021 ####[facility] [address] [place], [address] Absolute Neut 4.8 X10 3/uL Normal 2.0-7.7 [facility] Comment on above: Performed By: #### L 503.6005, L501.2450, L100.0100, L500.4050, L501.4021 ####[facility] [address] [place], [address] IG% 0.200 Normal 0.0-0.9 [facility] Comment on above: Result Comment: IG% - Immature Granulocytes (promyelocytes, myelocytes andmetamyelocytes) > 1% indicates that a LEFT SHIFT is Present. Performed By: #### L 503.6005, L501.2450, L100.0100, L500.4050, L501.4021 ####[facility] [address] [place], [address] Lymphocytes/100 WBC (Bld) 31.4 % Normal 19-41 [facility] Comment on above: Performed By: #### L 503.6005, L501.2450, L100.0100, L500.4050, L501.4021 ####[facility] [address] [place], [address] MCHC (RBC) [Mass/Vol] 33.2 g/dL Normal 32-[address] [facility] Comment on above: Performed By: #### L 503.6005, L501.2450, L100.0100, L500.4050, L501.4021 ####[facility] [address] [place], [address] Nucleated RBC (Bld) [#/Vol] 0 10*3/uL Normal 0-5 [facility] Comment on above: Performed By: #### L 503.6005, L501.2450, L100.0100, L500.4050, L501.4021 ####[facility] [address] [place], [address] Platelet mean volume (Bld) [Entitic vol] 8.7 fL Normal 6.2-12.0 [facility] Comment on above: Performed By: #### L 503.6005, L501.2450, L100.0100, L500.4050, L501.4021 ####[facility] [address] [place], [address] RDW SD 41.0 fl Normal 35.1-43.9 [facility] Comment on above: Performed By: #### L 503.6005, L501.2450, L100.0100, L500.4050, L501.4021 ####[facility] [address] [place], [address] Carbon dioxide, total [Moles /volume] in Central venous bloodOrdered By: Kayode Woods on 08-05-2024 CO2 [Moles/Vol] 23.8 mmol/L Normal 21.0-32.0 [facility] Comment on above: Performed By: #### L 503.6005, L501.2450, L100.0100, L500.4050, L501.4021 ####[facility] [address] [place], [address] Chloride assayOrdered By: Tan Woods on 08-05-2024 Chloride [Moles/Vol] 103 mmol/L Normal 98-108 [facility] Comment on above: Performed By: #### L 503.6005, L501.2450, L100.0100, L500.4050, L501.4021 ####[facility] [address] [place], [address] Comprehensive Metabolic Prof ilon 08-05-2024 ALK PHOS 120 U/L Normal 40-129 [facility] Comment on above: Performed By: #### L 503.6005, L501.2450, L100.0100, L500.4050, L501.4021 ####[facility] [address] [place], [address] AST [Catalytic activity/Vol] 25 U/L Normal <=37 [facility] Comment on above: Performed By: #### L 503.6005, L501.2450, L100.0100, L500.4050, L501.4021 ####[facility] [address] [place], [address] BUN/CRE 21.1 RATIO High 10-20 [facility] Comment on above: Performed By: #### L 503.6005, L501.2450, L100.0100, L500.4050, L501.4021 ####[facility] [address] [place], [address] ECRCL 63.33 ml/min Normal 50-250 [facility] Comment on above: Performed By: #### L 503.6005, L501.2450, L100.0100, L500.4050, L501.4021 ####[facility] [address] [place], [address] GAP 12 Normal 5-15 [facility] Comment on above: Performed By: #### L 503.6005, L501.2450, L100.0100, L500.4050, L501.4021 ####[facility] [address] [place], [address] Potassium [Moles/Vol] 4.3 mmol/L Normal 3.3-5.[address] [facility] Comment on above: Performed By: #### L 503.6005, L501.2450, L100.0100, L500.4050, L501.4021 ####[facility] [address] [place], [address] T PROT 6.4 g/dL Normal 5.9-8.4 [facility] Comment on above: Performed By: #### L 503.6005, L501.2450, L100.0100, L500.4050, L501.4021 ####[facility] [address] [place], [address] Emergency Department Summary on 08-05-2024 Emergency Department Summary Normal [facility] Eosinophil percentageOrdered By: Kayode Woods on 08-05-2024 Eosinophils/100 WBC (Bld) 2.0 % Normal 0-5 [facility] Comment on above: Performed By: #### L 503.6005, L501.2450, L100.0100, L500.4050, L501.4021 ####[facility] [address] [place], [address] Erythrocyte distribution wid th ratioOrdered By: Kayode Woods on 08-05-2024 Erythrocyte distribution width (RBC) [Ratio] 12.9 % Normal 11.6-14.6 [facility] Comment on above: Performed By: #### L 503.6005, L501.2450, L100.0100, L500.4050, L501.4021 ####[facility] [address] [place], [address] Erythrocyte distribution wid th standard deviationOrdered By: Kayode Woods on 08-05-2024 Erythrocyte distribution width (RBC) [Ratio] 41.0 fl 35.1-43.9 [facility] Glomerular filtration rate ( GFR) estimation/1.73 sq m using serum, plasma, or whole bOrdered By: Kayode Woods on 08-05-2024 GFR/1.73 sq M.predicted among non-blacks MDRD (S/P/Bld) [Vol rate/Area] 86 mL/min/{1.73_m2} Normal >60 [facility] Comment on above: Result Comment: mL/m in/1.73m2 CKD-EPI Creatinine Equation (2020) Performed By: #### L 503.6005, L501.2450, L100.0100, L500.4050, L501.4021 ####[facility] [address] [place], [address] H AND P Exam - Hospitaliston 08-05-2024 H&P Exam - Hospitalist Normal [facility] Hemoglobin measurementOrdere d By: Kayode Woods on 08-05-2024 Hemoglobin (Bld) [Mass/Vol] 12.3 g/dL Low 13.0-16.5 [facility] Comment on above: Performed By: #### L 503.6005, L501.2450, L100.0100, L500.4050, L501.4021 ####[facility] [address] [place], [address] Immature granulocytes/100 WB C Auto (Bld)Ordered By: Kayode Woods on 08-05-2024 Immature granulocytes/100 WBC (Bld) 0.200 % 0.0-0.9 [facility] Ketones Test strip Ql (U)Ord ered By: Kayode Woods on 08-05-2024 Ketones Ql (U) Negative Negative [facility] L499.0042on 08-05-2024 Trop T High Sen 36 ng/L High <=22 [facility] Comment on above: Performed By: #### L 499.0042 ####[facility] [address] [place], [address] L499.0043on 08-05-2024 Trop T High Sen 36 ng/L High <=22 [facility] Comment on above: Performed By: #### L 499.0043 ####[facility] [address] [place], [address] L501.4021on 08-05-2024 Trop T High Sen 39 ng/L High <=22 [facility] Comment on above: Performed By: #### L 503.6005, L501.2450, L100.0100, L500.4050, L501.4021 ####[facility] [address] [place], [address] Lactic Acidon 08-05-2024 Lactate [Moles/Vol] 1.3 mmol/L Normal 0.0-2.0 [facility] Comment on above: Order Comment: Y Performed By: #### L 503.6005, L501.2450, L100.0100, L500.4050, L501.4021 ####[facility] [address] [place], [address] Lipaseon 08-05-2024 Lipase [Catalytic activity/Vol] 15 U/L Normal 13-75 [facility] Comment on above: Result Comment: [place] byrd note:LIPASE revised reference range effective 22.New Lipase methodology. Expected to produce lower valuesthan the previous assay method.NEW Reference Range: 13 - 75 U/L Performed By: #### L 503.6005, L501.2450, L100.0100, L500.4050, L501.4021 ####[facility] [address] [place], [address] MCV (mean corpuscular volume ) determinationOrdered By: Kayode Woods on 08-05-2024 MCV (RBC) [Entitic vol] 87.7 fL Normal 80-94 [facility] Comment on above: Performed By: #### L 503.6005, L501.2450, L100.0100, L500.4050, L501.4021 ####[facility] [address] [place], [address] Mean corpuscular hemoglobin (MCH) determinationOrdered By: Kayode Woods on 08-05-2024 MCH (RBC) [Entitic mass] 29.1 pg Normal 27.0-32.0 [facility] Comment on above: Performed By: #### L 503.6005, L501.2450, L100.0100, L500.4050, L501.4021 ####[facility] [address] [place], [address] Monocyte percentageOrdered B y: Kayode Woods on 08-05-2024 Monocytes/100 WBC (Bld) 8.2 % Normal 0-10 [facility] Comment on above: Performed By: #### L 503.6005, L501.2450, L100.0100, L500.4050, L501.4021 ####[facility] [address] [place], [place], [address] Mucus LM Ql (Urine sed)Order ed By: Kayode Woods on 08-05-2024 Mucus Ql (Urine sed) 0 SEEN /hpf [facility] Neutrophil percentageOrdered By: Kayode Woods on 08-05-2024 Neutrophils/100 WBC (Bld) 57.7 % Normal 47-70 [facility] Comment on above: Performed By: #### L 503.6005, L501.2450, L100.0100, L500.4050, L501.4021 ####[facility] [address] [place], [address] Nitrite Test strip Ql (U)Ord ered By: Kayode Woods on 08-05-2024 Nitrite Ql (U) Negative Negative [facility] No Panel InformationOrdered By: Kayode Woods on 08-05-2024 25 U/L <38 [facility] Platelet countOrdered By: Tan Woods on 08-05-2024 Platelets (Bld) [#/Vol] 208 10*3/uL Normal 150-450 [facility] Comment on above: Performed By: #### L 503.6005, L501.2450, L100.0100, L500.4050, L501.4021 ####[facility] [address] [place], [place], [id number] Potassium measurement (mass/ volume)Ordered By: Kayode Woods on 08-05-2024 Potassium (Unsp spec) [Mass/Vol] 4.3 mmol/L 3.3-5.1 [facility] Protein Test strip Ql (U)Ord ered By: Kayode Woods on 08-05-2024 Protein Ql (U) Negative Negative [facility] Serum creatinine measurement (mass/volume)Ordered By: Kayode Woods on 08-05-2024 Creatinine [Mass/Vol] 0.87 mg/dL Normal 0.70-1.[address] [facility] Comment on above: Performed By: #### L 503.6005, L501.2450, L100.0100, L500.4050, L501.4021 ####[facility] [address] [place], [address] Serum globulin measurementOr dered By: Kayode Woods on 08-05-2024 Globulin (S) [Mass/Vol] 2.4 g/dL Normal 2.2-4.2 [facility] Comment on above: Performed By: #### L 503.6005, L501.2450, L100.0100, L500.4050, L501.4021 ####[facility] [address] [place], [address] Serum glucose measurement (m ass/volume)Ordered By: Kayode Woods on 08-05-2024 Glucose [Mass/Vol] 93 mg/dL Normal 70-99 [facility] Comment on above: Performed By: #### L 503.6005, L501.2450, L100.0100, L500.4050, L501.4021 ####[facility] [address] [place], [address] Serum or plasma alanine olmedo otransferase (ALT) measurementOrdered By: Kayode Woods on 08-05-2024 ALT [Catalytic activity/Vol] 23 U/L Normal <=46 [facility] Comment on above: Performed By: #### L 503.6005, L501.2450, L100.0100, L500.4050, L501.4021 ####[facility] [address] [place], [address] Serum or plasma albumin ratna urement (mass/volume)Ordered By: Kayode Woods on 08-05-2024 Albumin [Mass/Vol] 4.0 g/dL Normal 3.4-4.8 [facility] Comment on above: Performed By: #### L 503.6005, L501.2450, L100.0100, L500.4050, L501.4021 ####[facility] [address] [place], [address] Serum or plasma albumin/glob ulin mass ratioOrdered By: Kayode Woods on 08-05-2024 Albumin/Globulin [Mass ratio] 1.7 {ratio} Normal 0.9-2.4 [facility] Comment on above: Performed By: #### L 503.6005, L501.2450, L100.0100, L500.4050, L501.4021 ####[facility] [address] [place], [address] Serum or plasma alkaline garry sphatase measurementOrdered By: Kayode Woods on 08-05-2024 ALP [Catalytic activity/Vol] 120 U/L 40-129 [facility] Serum or plasma calcium ratna urement (mass/volume)Ordered By: Kayode Woods on 08-05-2024 Calcium [Mass/Vol] 9.4 mg/dL Normal 7.6-11.0 [facility] Comment on above: Performed By: #### L 503.6005, L501.2450, L100.0100, L500.4050, L501.4021 ####[facility] [address] [place], [address] Serum or plasma urea nitroge n measurement (mass/volume)Ordered By: Kayode Woods on 08-05-2024 Urea nitrogen [Mass/Vol] 18 mg/dL Normal 4-19 [facility] Comment on above: Performed By: #### L 503.6005, L501.2450, L100.0100, L500.4050, L501.4021 ####[facility] [address] [place], [address] Sodium levelOrdered By: Edgar Woods on 08-05-2024 Sodium [Moles/Vol] 138 mmol/L Normal 133-145 [facility] Comment on above: Performed By: #### L 503.6005, L501.2450, L100.0100, L500.4050, L501.4021 ####[facility] [address] [place], [address] Spine Cervical without Contr ason 08-05-2024 Spine Cervical without Contras Normal [facility] Squamous epithelial cells de tection in urine sediment by light microscopyOrdered By: Kayode Woods on 08-05-2024 Epithelial cells.squamous LM Ql (Urine sed) 0 SEEN /hpf 0-5 [facility] Total proteinOrdered By: Mayela Woods on 08-05-2024 Protein [Mass/Vol] 6.4 g/dL 5.9-8.4 [facility] Troponin T.cardiac [Mass/vol ume] in Serum or Plasma by High sensitivity methodOrdered By: Kayode Woods on 08-05-2024 Troponin T.cardiac High sensitivity method [Mass/Vol] 36 ng/L High <22 [facility] Troponin T.cardiac High sensitivity method [Mass/Vol] 39 ng/L High <22 [facility] Urinalysis, Completeon 08-05 BACTERIA 0 SEEN Normal None Seen [facility] Comment on above: Order Comment: JUDE CTOR TO SPECIFY Performed By: #### L 400.0001 ####[facility] [address] [place], [address] EPI,SQUAMOUS 0 SEEN Normal 0-[address] [place] [address] Comment on above: Order Comment: JUDE CTOR TO SPECIFY Performed By: #### L 400.0001 ####[facility] [address] [place], [address] Mucus Ql (Urine sed) 0 SEEN Normal [facility] Comment on above: Order Comment: JUDE CTOR TO SPECIFY Performed By: #### L 400.0001 ####[facility] [address] [place], [address] RBC 0 SEEN Normal 0-[address] [place] [address] Comment on above: Order Comment: JUDE CTOR TO SPECIFY Performed By: #### L 400.0001 ####[facility] [address] [place], [address] WBC 0 SEEN Normal 0-[address] [place] [address] Comment on above: Order Comment: COLLE CTOR TO SPECIFY Performed By: #### L 400.0001 ####[facility] [address] [place], [place], [address] Urine clarityOrdered By: Mayela Woods on 08-05-2024 Clarity (U) Clear Clear [facility] Urine color determinationOrd ered By: Kayode Woods on 08-05-2024 Color (U) Yellow Yellow [facility] Urine glucose detectionOrder ed By: Kayode Woods on 08-05-2024 Glucose Ql (U) Normal mg/dl Normal [facility] Urine leukocyte esterase det ection by dipstickOrdered By: Kayode Woods on 08-05-2024 Leukocyte esterase Test strip Ql (U) Negative Negative [facility] Urine pHOrdered By: Kayode maxwell on 08-05-2024 pH (U) 7.0 [pH] 5.0 - 8.0 [facility] Urine sediment bacteria coun t by microscopy (number/high power field)Ordered By: Kayode Woods on 08-05-2024 Bacteria LM.HPF (Urine sed) [#/Area] 0 /[HPF] None Seen [facility] Urine specific gravity measu rementOrdered By: Kayode Woods on 08-05-2024 Specific gravity (U) [Rel density] 1.010 1.002-1.030 [facility] Urine urobilinogen measureme ntOrdered By: Kayode Woods on 08-05-2024 Urobilinogen Ql (U) Normal mg/dl Normal [facility] White blood cell (WBC) count Ordered By: Kayode Woods on 08-05-2024 WBC (Bld) [#/Vol] 8.4 10*3/uL Normal 4.4-11.0 [facility] Comment on above: Performed By: #### L 503.6005, L501.2450, L100.0100, L500.4050, L501.4021 ####[facility] [address] [place], [place], [address] White blood cell countOrdere d By: Kayode Woods on 08-05-2024 White blood cell count 0 SEEN /hpf 0-5 [facility] Cerv Spine 2 or 3 Viewson Cerv Spine 2 or 3 Views Normal [facility] Orthopedic Visit Reporton Orthopedic Visit Report Normal [facility] Absolute lymphocyte countOrd ered By: Kwabena Menjivar on 07-20-2024 Lymphocytes Auto (Unsp spec) [#/Vol] 2.92 10*3/uL 0.83-4.51 [facility] Anion gap in Serum or Plasma Ordered By: Kwabena Menjivar on 07-20-2024 Anion gap [Moles/Vol] 13 mmol/L 5-[address] [facility] Automated lymphocyte count a s percentage of total leukocytesOrdered By: Kwabena Menjivar on 07-20-2024 Lymphocytes/100 WBC Auto (Unsp spec) 35.4 % - [facility] BUN/creatinine ratioOrdered By: Kwabena Menjivar on 07-20-2024 Urea nitrogen/Creatinine [Mass ratio] 12.9 mg/mg 10- [facility] Basophil percentageOrdered B y: Kwabena Menjivar on 07-20-2024 Basophils/100 WBC (Bld) 0.6 % 0-1 [facility] Bilirubin, totalOrdered By: Kwabena Menjivar on 07-20-2024 Bilirubin [Mass/Vol] 0.44 mg/dL 0.00-1.30 [facility] CBC W/Diff, Automatedon 07-09 Absolute Lymph 2.92 X10 3/uL Normal 0.83-4.51 [facility] Comment on above: Order Comment: Order Date: 07/20/24Order Info: [id number] - CBCDOrder Date: 10/27/23Order Info: [id number] - CBC Performed By: #### L 100.0100, L501.9520, L400.0001, L500.4050 ####[facility] [address] [place], [address] Absolute Neut 4.3 X10 3/uL Normal 2.0-7.7 [facility] Comment on above: Order Comment: Order Date: 06/12/25Order Info: [id number] - CBCDOrder Date: 10/27/23Order Info: [id number] - CBC Performed By: #### L 100.0100, L501.9520, L400.0001, L500.4050 ####[facility] [address] [place], [address] Basophils/100 WBC (Bld) 0.6 % Normal 0-1 [facility] Comment on above: Order Comment: Order Date: 07/20/24Order Info: [id number] - CBCDOrder Date: 10/27/23Order Info: [id number] - CBC Performed By: #### L 100.0100, L501.9520, L400.0001, L500.4050 ####[facility] [address] [place], [address] Eosinophils/100 WBC (Bld) 3.3 % Normal 0-5 [facility] Comment on above: Order Comment: Order Date: 07/20/24Order Info: [id number] - CBCDOrder Date: 10/27/23Order Info: [id number] - CBC Performed By: #### L 100.0100, L501.9520, L400.0001, L500.4050 ####[facility] [address] [facility], [address] Erythrocyte distribution width (RBC) [Ratio] 13.1 % Normal 11.6-14.6 [facility] Comment on above: Order Comment: Order Date: 07/20/24Order Info: [id number] - CBCDOrder Date: 10/27/23Order Info: [id number] - CBC Performed By: #### L 100.0100, L501.9520, L400.0001, L500.4050 ####[facility] [address] [facility] [place], [address] Hematocrit (Bld) [Volume fraction] 40.4 % Normal 40-54 [facility] Comment on above: Order Comment: Order Date: 07/20/24Order Info: [id number] - CBCDOrder Date: 10/27/23Order Info: [id number] - CBC Performed By: #### L 100.0100, L501.9520, L400.0001, L500.4050 ####[facility] [address] [place], [address] Hemoglobin (Bld) [Mass/Vol] 13.3 g/dL Normal 13.0-16.5 [facility] Comment on above: Order Comment: Order Date: 07/20/24Order Info: [id number]- - CBCDOrder Date: 10/27/23Order Info: [id number] - CBC Performed By: #### L 100.0100, L501.9520, L400.0001, L500.4050 ####[facility] [address] [place], [address] IG% 0.200 Normal 0.0-0.9 [facility] Comment on above: Order Comment: Order Date: 07/20/24Order Info: [id number]- - CBCDOrder Date: 10/27/23Order Info: [id number] - CBC Result Comment: IG% - Immature Granulocytes (promyelocytes, myelocytes andmetamyelocytes) > 1% indicates that a LEFT SHIFT is Present. Performed By: #### L 100.0100, L501.9520, L400.0001, L500.4050 ####[facility] [address] [place], [address] Lymphocytes/100 WBC (Bld) 35.4 % Normal 19-41 [facility] Comment on above: Order Comment: Order Date: 07/20/24Order Info: [id number] - CBCDOrder Date: 10/27/23Order Info: [id number] - CBC Performed By: #### L 100.0100, L501.9520, L400.0001, L500.4050 ####[facility] [address] [place], [address] MCH (RBC) [Entitic mass] 29.4 pg Normal 27.0-32.0 [facility] Comment on above: Order Comment: Order Date: 07/20/24Order Info: [id number] - CBCDOrder Date: 10/27/23Order Info: [id number] - CBC Performed By: #### L 100.0100, L501.9520, L400.0001, L500.4050 ####[facility] [address] [place], [address] MCHC (RBC) [Mass/Vol] 32.9 g/dL Normal 32-[address] [facility] Comment on above: Order Comment: Order Date: 07/20/24Order Info: [id number] - CBCDOrder Date: 10/27/23Order Info: [id number] - CBC Performed By: #### L 100.0100, L501.9520, L400.0001, L500.4050 ####[facility] [address] [place], [address] MCV (RBC) [Entitic vol] 89.2 fL Normal 80-94 [facility] Comment on above: Order Comment: Order Date: 07/20/24Order Info: [id number] - CBCDOrder Date: 10/27/23Order Info: [id number] - CBC Performed By: #### L 100.0100, L501.9520, L400.0001, L500.4050 ####[facility] [address] [place], [address] Monocytes/100 WBC (Bld) 8.4 % Normal 0-10 [facility] Comment on above: Order Comment: Order Date: 07/20/24Order Info: [id number] - CBCDOrder Date: 10/27/23Order Info: [id number] - CBC Performed By: #### L 100.0100, L501.9520, L400.0001, L500.4050 ####[facility] [address] [place], [address] Neutrophils/100 WBC (Bld) 52.1 % Normal 47-70 [facility] Comment on above: Order Comment: Order Date: 07/20/24Order Info: [id number] - CBCDOrder Date: 10/27/23Order Info: [id number] - CBC Performed By: #### L 100.0100, L501.9520, L400.0001, L500.4050 ####[facility] [address] [place], [address] Nucleated RBC (Bld) [#/Vol] 0 10*3/uL Normal 0-5 [facility] Comment on above: Order Comment: Order Date: 07/20/24Order Info: [id number]- - CBCDOrder Date: 10/27/23Order Info: [id number] - CBC Performed By: #### L 100.0100, L501.9520, L400.0001, L500.4050 ####[facility] [address] [place], [address] Platelet mean volume (Bld) [Entitic vol] 9.1 fL Normal 6.2-12.0 [facility] Comment on above: Order Comment: Order Date: 07/20/24Order Info: [id number] - CBCDOrder Date: 10/27/23Order Info: [id number] - CBC Performed By: #### L 100.0100, L501.9520, L400.0001, L500.4050 ####[facility] [address] [place], [address] Platelets (Bld) [#/Vol] 242 10*3/uL Normal 150-450 [facility] Comment on above: Order Comment: Order Date: 07/20/24Order Info: [id number] - CBCDOrder Date: 10/27/23Order Info: [id number] - CBC Performed By: #### L 100.0100, L501.9520, L400.0001, L500.4050 ####[facility] [address] [place], [address] RBC (Bld) [#/Vol] 4.53 10*6/uL Low 4.6-6.2 [facility] Comment on above: Order Comment: Order Date: 07/20/24Order Info: [id number] - CBCDOrder Date: 10/27/23Order Info: [id number] - CBC Performed By: #### L 100.0100, L501.9520, L400.0001, L500.4050 ####[facility] [address] [place], [place], [address] RDW SD 43.0 fl Normal 35.1-43.9 [facility] Comment on above: Order Comment: Order Date: 07/20/24Order Info: [id number] - CBCDOrder Date: 10/27/23Order Info: [id number] - CBC Performed By: #### L 100.0100, L501.9520, L400.0001, L500.4050 ####[facility] [address] [place], [address] WBC (Bld) [#/Vol] 8.3 10*3/uL Normal 4.4-11.0 [facility] Comment on above: Order Comment: Order Date: 07/20/24Order Info: [id number] - CBCDOrder Date: 10/27/23Order Info: [id number] - CBC Performed By: #### L 100.0100, L501.9520, L400.0001, L500.4050 ####[facility] [address] [place], [place], [address] Calculated very low density lipoprotein (VLDL) cholesterol measurementOrdered By: Kwabena Menjivar on 07-20-2024 Calculated very low density lipoprotein (VLDL) cholesterol measurement 27 mg/dL 5-40 [facility] Carbon dioxide, total [Moles /volume] in Central venous bloodOrdered By: Kwabena Menjivar on 07-20-2024 CO2 [Moles/Vol] 24.7 mmol/L 21.0-32.0 [facility] Chloride assayOrdered By: Kristine Purdythomas on 07-20-2024 Chloride [Moles/Vol] 104 mmol/L 98-108 [facility] Comprehensive Metabolic Prof ilon 07-20-2024 Albumin [Mass/Vol] 4.3 g/dL Normal 3.4-4.8 [facility] Comment on above: Order Comment: Order Date: 10/27/23Order Info: [id number]- - BMPOrder Date: 07/20/24Order Info: [id number] - CMPOrder Info: [id number] - LIPIDOrder Info: [id number] - TSH Performed By: #### L 100.0100, L501.9520, L400.0001, L500.4050 ####[facility] [address] [place], [address] Albumin/Globulin [Mass ratio] 1.6 {ratio} Normal 0.9-2.4 [facility] Comment on above: Order Comment: Order Date: 10/27/23Order Info: [id number] - BMPOrder Date: 07/20/24Order Info: 07- - CMPOrder Info: [id number] - LIPIDOrder Info: [id number] - TSH Performed By: #### L 100.0100, L501.9520, L400.0001, L500.4050 ####[facility] [address] [place], [address] ALK PHOS 133 U/L High 40-129 [facility] Comment on above: Order Comment: Order Date: 10/27/23Order Info: [id number]- - BMPOrder Date: 07/20/24Order Info: 07-1 - CMPOrder Info: [id number] - LIPIDOrder Info: [id number] - TSH Performed By: #### L 100.0100, L501.9520, L400.0001, L500.4050 ####[facility] [address] [place], [address] ALT [Catalytic activity/Vol] 33 U/L Normal <=46 [facility] Comment on above: Order Comment: Order Date: 10/27/23Order Info: [id number]- - BMPOrder Date: 07/20/24Order Info: [id number] - CMPOrder Info: [id number] - LIPIDOrder Info: [id number] - TSH Performed By: #### L 100.0100, L501.9520, L400.0001, L500.4050 ####[facility] [address] [place], [address] AST [Catalytic activity/Vol] 30 U/L Normal <=37 [facility] Comment on above: Order Comment: Order Date: 10/27/23Order Info: [id number] - BMPOrder Date: 07/20/24Order Info: [id number]- - CMPOrder Info: [id number] - LIPIDOrder Info: [id number] - TSH Performed By: #### L 100.0100, L501.9520, L400.0001, L500.4050 ####[facility] [address] [place], [address] Bilirubin [Mass/Vol] 0.44 mg/dL Normal 0.00-1.30 [facility] Comment on above: Order Comment: Order Date: 10/27/23Order Info: [id number] - BMPOrder Date: 07/20/24Order Info: [id number] - CMPOrder Info: [id number] - LIPIDOrder Info: [id number] - TSH Performed By: #### L 100.0100, L501.9520, L400.0001, L500.4050 ####[facility] [address] [place], [address] BUN/CRE 12.9 RATIO Normal 10-20 [facility] Comment on above: Order Comment: Order Date: 10/27/23Order Info: 666- - BMPOrder Date: 07/20/24Order Info: [id number] - CMPOrder Info: [id number] - LIPIDOrder Info: [id number] - TSH Performed By: #### L 100.0100, L501.9520, L400.0001, L500.4050 ####[facility] [address] [place], [address] Calcium [Mass/Vol] 9.6 mg/dL Normal 7.6-11.0 [facility] Comment on above: Order Comment: Order Date: 10/27/23Order Info: [id number] - BMPOrder Date: 07/20/24Order Info: [id number] - CMPOrder Info: [id number] - LIPIDOrder Info: [id number] - TSH Performed By: #### L 100.0100, L501.9520, L400.0001, L500.4050 ####[facility] [address] [place], [address] Chloride [Moles/Vol] 104 mmol/L Normal 98-108 [facility] Comment on above: Order Comment: Order Date: 10/27/23Order Info: 666- - BMPOrder Date: 07/20/24Order Info: 86-1 - CMPOrder Info: [id number] - LIPIDOrder Info: [id number] - TSH Performed By: #### L 100.0100, L501.9520, L400.0001, L500.4050 ####[facility] [address] [place], [address] CO2 [Moles/Vol] 24.7 mmol/L Normal 21.0-32.0 [facility] Comment on above: Order Comment: Order Date: 10/27/23Order Info: 666- - BMPOrder Date: 07/20/24Order Info: 86-1 - CMPOrder Info: [id number] - LIPIDOrder Info: [id number] - TSH Performed By: #### L 100.0100, L501.9520, L400.0001, L500.4050 ####[facility] [address] [place], [address] Creatinine [Mass/Vol] 1.07 mg/dL Normal 0.70-1.[address] [facility] Comment on above: Order Comment: Order Date: 10/27/23Order Info: 666- - BMPOrder Date: 07/20/24Order Info: [id number] - CMPOrder Info: [id number] - LIPIDOrder Info: [id number] - TSH Performed By: #### L 100.0100, L501.9520, L400.0001, L500.4050 ####[facility] [address] [place], [address] GAP 13 Normal 5-15 [facility] Comment on above: Order Comment: Order Date: 10/27/23Order Info: 666- - BMPOrder Date: 07/20/24Order Info: [id number] - CMPOrder Info: [id number] - LIPIDOrder Info: [id number] - TSH Performed By: #### L 100.0100, L501.9520, L400.0001, L500.4050 ####[facility] [address] [place], [address] GFR/1.73 sq M.predicted among non-blacks MDRD (S/P/Bld) [Vol rate/Area] 69 mL/min/{1.73_m2} Normal >60 [facility] Comment on above: Order Comment: Order Date: 10/27/23Order Info: [id number] - BMPOrder Date: 07/20/24Order Info: [id number]- - CMPOrder Info: [id number] - LIPIDOrder Info: [id number] - TSH Result Comment: mL/m in/1.73m2 CKD-EPI Creatinine Equation (2020) Performed By: #### L 100.0100, L501.9520, L400.0001, L500.4050 ####[facility] [address] [place], [address] Globulin (S) [Mass/Vol] 2.6 g/dL Normal 2.2-4.2 [facility] Comment on above: Order Comment: Order Date: 10/27/23Order Info: 666- - BMPOrder Date: 07/20/24Order Info: [id number] - CMPOrder Info: [id number] - LIPIDOrder Info: [id number] - TSH Performed By: #### L 100.0100, L501.9520, L400.0001, L500.4050 ####[facility] [address] [place], [address] Glucose [Mass/Vol] 86 mg/dL Normal 70-99 [facility] Comment on above: Order Comment: Order Date: 10/27/23Order Info: [id number] - BMPOrder Date: 07/20/24Order Info: [id number] - CMPOrder Info: [id number] - LIPIDOrder Info: [id number] - TSH Performed By: #### L 100.0100, L501.9520, L400.0001, L500.4050 ####[facility] [address] [place], [address] Potassium [Moles/Vol] 4.3 mmol/L Normal 3.3-5.[address] [facility] Comment on above: Order Comment: Order Date: 10/27/23Order Info: 666- - BMPOrder Date: 07/20/24Order Info: 86-1 - CMPOrder Info: [id number] - LIPIDOrder Info: [id number] - TSH Performed By: #### L 100.0100, L501.9520, L400.0001, L500.4050 ####[facility] [address] [place], [address] Sodium [Moles/Vol] 142 mmol/L Normal 133-145 [facility] Comment on above: Order Comment: Order Date: 10/27/23Order Info: 666- - BMPOrder Date: 07/20/24Order Info: [id number] - CMPOrder Info: [id number] - LIPIDOrder Info: [id number] - TSH Performed By: #### L 100.0100, L501.9520, L400.0001, L500.4050 ####[facility] [address] [place], [address] T PROT 6.9 g/dL Normal 5.9-8.4 [facility] Comment on above: Order Comment: Order Date: 10/27/23Order Info: [id number] - BMPOrder Date: 07/20/24Order Info: [id number] - CMPOrder Info: [id number] - LIPIDOrder Info: [id number] - TSH Performed By: #### L 100.0100, L501.9520, L400.0001, L500.4050 ####[facility] [address] [place], [address] Urea nitrogen [Mass/Vol] 14 mg/dL Normal 4-19 [facility] Comment on above: Order Comment: Order Date: 10/27/23Order Info: [id number] - BMPOrder Date: 07/20/24Order Info: [id number] - CMPOrder Info: [id number] - LIPIDOrder Info: [id number] - TSH Performed By: #### L 100.0100, L501.9520, L400.0001, L500.4050 ####[facility] [address] [place], [place], [address] Eosinophil percentageOrdered By: Kwabena Menjivar on 07-20-2024 Eosinophils/100 WBC (Bld) 3.3 % 0-5 [facility] Erythrocyte distribution wid th ratioOrdered By: Kwabena Menjivar on 07-20-2024 Erythrocyte distribution width (RBC) [Ratio] 13.1 % 11.6-14.6 [facility] Erythrocyte distribution wid th standard deviationOrdered By: Kwabena Menjivar on 07-20-2024 Erythrocyte distribution width (RBC) [Ratio] 43.0 fl 35.1-43.9 [facility] Glomerular filtration rate ( GFR) estimation/1.73 sq m using serum, plasma, or whole bOrdered By: Kwabena Menjivar on 07-20-2024 GFR/1.73 sq M.predicted among non-blacks MDRD (S/P/Bld) [Vol rate/Area] 69 mL/min/{1.73_m2} >60 [facility] Hematocrit Auto (Bld) [Volum e fraction]Ordered By: Kwabena Menjivar on 07-20-2024 Hematocrit (Bld) [Volume fraction] 40.4 % 40-54 [facility] Hemoglobin measurementOrdere d By: Kwabena Menjivar on 07-20-2024 Hemoglobin (Bld) [Mass/Vol] 13.3 g/dL 13.0-16.5 [facility] Immature granulocytes/100 WB C Auto (Bld)Ordered By: Kwabena Menjivar on 07-20-2024 Immature granulocytes/100 WBC (Bld) 0.200 % 0.0-0.9 [facility] LDL calc ser/plasOrdered By: Kwabena Menjivar on 07-20-2024 Cholesterol in LDL [Mass/Vol] 105 mg/dL [facility] Lipid Profileon 07-20-2024 CHOL:HDL 3.52 Normal [facility] Comment on above: Order Comment: Order Date: 10/27/23Order Info: [id number] - BMPOrder Date: 07/20/24Order Info: [id number] - CMPOrder Info: [id number] - LIPIDOrder Info: [id number] - TSH Performed By: #### L 500.4100 ####[facility] [address] [place], [place], [address] Cholesterol [Mass/Vol] 185 mg/dL Normal <=200 [facility] Comment on above: Order Comment: Order Date: 10/27/23Order Info: [id number] - BMPOrder Date: 07/20/24Order Info: [id number] - CMPOrder Info: [id number] - LIPIDOrder Info: [id number] - TSH Result Comment: Chol esterol level, Desirable <200 mg/dLBorderline high cholesterol 200-239 mg/dLHigh cholesterol >=240 mg/dLRecommendations of the NCEP Adult Treatment Panel for thefollowing risk-cutoff thresholds for the [place] Americanpulation. Performed By: #### L 500.4100 ####[facility] [address] [place], [place], [address] Cholesterol in HDL [Mass/Vol] 53 mg/dL Normal [facility] Comment on above: Order Comment: Order Date: 10/27/23Order Info: [id number] - BMPOrder Date: 07/20/24Order Info: 86-1 - CMPOrder Info: [id number] - LIPIDOrder Info: [id number] - TSH Result Comment: Jodi onal Cholesterol Education Program (NCEP) guidelines:<40 mg/dL: Low HDL-cholesterol (major risk factor for CHD)>= 60 mg/dL: High HDL-cholesterol (negative risk factor forCHD)HDL-cholesterol is affected by a number of factors, e.g.smoking, exercise, hormones, sex and age. Performed By: #### L 500.4100 ####[facility] [address] [place], [place], [address](633) Cholesterol in LDL [Mass/Vol] 105 mg/dL Normal [facility] Comment on above: Order Comment: Order Date: 10/27/23Order Info: [id number] - BMPOrder Date: 07/20/24Order Info: [id number] - CMPOrder Info: [id number] - LIPIDOrder Info: [id number] - TSH Result Comment: Bord kmrqkl=296-064 mg/dL Higher Pzsk=241 mg/dL or greater Performed By: #### L 500.4100 ####[facility] [address] [place], [place], [address](655) Cholesterol in VLDL [Mass/Vol] 27 mg/dL Normal 5-40 [facility] Comment on above: Order Comment: Order Date: 10/27/23Order Info: [id number] - BMPOrder Date: 07/20/24Order Info: 86-1 - CMPOrder Info: [id number] - LIPIDOrder Info: [id number] - TSH Performed By: #### L 500.4100 ####[facility] [address] [place], [address] Triglyceride [Mass/Vol] 136 mg/dL Normal [facility] Comment on above: Order Comment: Order Date: 10/27/23Order Info: [id number] - BMPOrder Date: 07/20/24Order Info: 86-1 - CMPOrder Info: [id number] - LIPIDOrder Info: [id number] - TSH Result Comment: The drugs N-Acetylcysteine and Metamizole may falselydepress this assay.Normal range: <150 mg/dLBorderline High: 150-199 mg/dLHigh: 200-499 mg/dLVery High: >500 mg/dL Performed By: #### L 500.6583 ####[facility] [address] [place], [address] MCV (mean corpuscular volume ) determinationOrdered By: Kwabena Menjivar on 07-20-2024 MCV (RBC) [Entitic vol] 89.2 fL 80-94 [facility] Mean corpuscular hemoglobin (MCH) determinationOrdered By: Kwabena Menjivar on 07-20-2024 MCH (RBC) [Entitic mass] 29.4 pg 27.0-32.0 [facility] Monocyte percentageOrdered B y: Kwabena Menjivar on 07-20-2024 Monocytes/100 WBC (Bld) 8.4 % 0-10 [facility] Neutrophil percentageOrdered By: Kwabena Menjivar on 07-20-2024 Neutrophils/100 WBC (Bld) 52.1 % 47-70 [facility] No Panel InformationOrdered By: Kwabena Menjivar on 07-20-2024 30 U/L <38 [facility] Platelet countOrdered By: Kristine Menjivar on 07-20-2024 Platelets (Bld) [#/Vol] 242 10*3/uL 150-450 [facility] Potassium measurement (mass/ volume)Ordered By: Kwabena Menjivar on 07-20-2024 Potassium (Unsp spec) [Mass/Vol] 4.3 mmol/L 3.3-5.1 [facility] RBC Auto (Bld) [#/Vol]Ordere d By: Kwabena Menjivar on 07-20-2024 RBC (Bld) [#/Vol] 4.53 10*6/uL Low 4.6-6.2 [facility] Serum creatinine measurement (mass/volume)Ordered By: Kwabena Menjivar on 07-20-2024 Creatinine [Mass/Vol] 1.07 mg/dL 0.70-1.[address] [facility] Serum globulin measurementOr dered By: Kwabena Menjivar on 07-20-2024 Globulin (S) [Mass/Vol] 2.6 g/dL 2.2-4.2 [facility] Serum glucose measurement (m ass/volume)Ordered By: Kwabena Menjivar on 07-20-2024 Glucose [Mass/Vol] 86 mg/dL 70-99 [facility] Serum or plasma alanine olmedo otransferase (ALT) measurementOrdered By: Kwabena Menjivar on 07-20-2024 ALT [Catalytic activity/Vol] 33 U/L <47 [facility] Serum or plasma albumin ratna urement (mass/volume)Ordered By: Kwabena Menjivar on 07-20-2024 Albumin [Mass/Vol] 4.3 g/dL 3.4-4.8 [facility] Serum or plasma albumin/glob ulin mass ratioOrdered By: Kwabena Menjivar on 07-20-2024 Albumin/Globulin [Mass ratio] 1.6 {ratio} 0.9-2.4 [facility] Serum or plasma alkaline garry sphatase measurementOrdered By: Kwabena Menjivar on 07-20-2024 ALP [Catalytic activity/Vol] 133 U/L High 40-129 [facility] Serum or plasma calcium ratna urement (mass/volume)Ordered By: Kwabena Menjivar on 07-20-2024 Calcium [Mass/Vol] 9.6 mg/dL 7.6-11.0 [facility] Serum or plasma cholesterol in HDL measurement (mass/volume)Ordered By: Kwabena Menjivar on 07-20-2024 Cholesterol in HDL [Mass/Vol] 53 mg/dL >40 [facility] Serum or plasma cholesterol measurement (mass/volume)Ordered By: Kwabena Menjivar on 07-20-2024 Cholesterol [Mass/Vol] 185 mg/dL <201 [facility] Serum or plasma urea nitroge n measurement (mass/volume)Ordered By: Kwabena Menjivar on 07-20-2024 Urea nitrogen [Mass/Vol] 14 mg/dL 4-19 [facility] Sodium levelOrdered By: Akhil Menjivar on 07-20-2024 Sodium [Moles/Vol] 142 mmol/L 133-145 [facility] TSH DL <= 0.005 mIU/L QnOrde red By: Kwabena Otto on 07-20-2024 TSH Qn 1.580 uIU/mL 0.300-4.200 [facility] Thyroid Stim Hormone (TSH)on 07-20-2024 TSH 1.580 uIU/mL Normal 0.300-4.200 [facility] Comment on above: Order Comment: Order Date: 10/27/23Order Info: [id number] - BMPOrder Date: 07/20/24Order Info: [id number] - CMPOrder Info: [id number] - LIPIDOrder Info: [id number] - TSH Performed By: #### L 100.0100, L501.9520, L400.0001, L500.4050 ####[facility] [address] [place], [address] Total proteinOrdered By: Blayne rios Otto on 07-20-2024 Protein [Mass/Vol] 6.9 g/dL 5.9-8.4 [facility] Urinalysis, Completeon 07-20 BACTERIA 0 SEEN Normal None Seen [facility] Comment on above: Order Comment: Order Date: 07/20/24Order Info: [id number] - UACCOLLECTOR TO SPECIFY Result Comment: UTO Performed By: #### L 100.0100, L501.9520, L400.0001, L500.4050 ####[facility] [address] [place], [address] EPI,SQUAMOUS 0 SEEN Normal 0-5 [facility] Comment on above: Order Comment: Order Date: 07/20/24Order Info: [id number] - UACCOLLECTOR TO SPECIFY Result Comment: UTO Performed By: #### L 100.0100, L501.9520, L400.0001, L500.4050 ####[facility] [address] [place], [address] Mucus Ql (Urine sed) 0 SEEN Normal [facility] Comment on above: Order Comment: Order Date: 07/20/24Order Info: [id number] - UACCOLLECTOR TO SPECIFY Result Comment: UTO Performed By: #### L 100.0100, L501.9520, L400.0001, L500.4050 ####[facility] [address] [place], [address] RBC 0 SEEN Normal 0-5 [facility] Comment on above: Order Comment: Order Date: 07/20/24Order Info: [id number] - UACCOLLECTOR TO SPECIFY Result Comment: UTO Performed By: #### L 100.0100, L501.9520, L400.0001, L500.4050 ####[facility] [address] [place], [address] WBC 0 SEEN Normal 0-5 [facility] Comment on above: Order Comment: Order Date: 07/20/24Order Info: [id number] - UACCOLLECTOR TO SPECIFY Result Comment: UTO Performed By: #### L 100.0100, L501.9520, L400.0001, L500.4050 ####[facility] [address] [place], [address] BILIRUBIN URINE Normal Negative [facility] Comment on above: Order Comment: Order Date: 07/20/24Order Info: [id number] - UACCOLLECTOR TO SPECIFY Result Comment: UTO Performed By: #### L 100.0100, L501.9520, L400.0001, L500.4050 ####[facility] [address] [place], [address] Clarity (U) Normal Clear [facility] Comment on above: Order Comment: Order Date: 07/20/24Order Info: [id number] - UACCOLLECTOR TO SPECIFY Result Comment: UTO Performed By: #### L 100.0100, L501.9520, L400.0001, L500.4050 ####[facility] [address] [place], [address] Color (U) Normal Yellow [facility] Comment on above: Order Comment: Order Date: 07/20/24Order Info: [id number] - UACCOLLECTOR TO SPECIFY Result Comment: UTO Performed By: #### L 100.0100, L501.9520, L400.0001, L500.4050 ####[facility] [address] [place], [address] GLUCOSE, UR Normal Normal [facility] Comment on above: Order Comment: Order Date: 07/20/24Order Info: [id number] - UACCOLLECTOR TO SPECIFY Result Comment: UTO Performed By: #### L 100.0100, L501.9520, L400.0001, L500.4050 ####[facility] [address] [place], [address] KETONE UR Normal Negative [facility] Comment on above: Order Comment: Order Date: 07/20/24Order Info: [id number] - UACCOLLECTOR TO SPECIFY Result Comment: UTO Performed By: #### L 100.0100, L501.9520, L400.0001, L500.4050 ####[facility] [address] [place], [address] LEUK ESTERASE Normal Negative [facility] Comment on above: Order Comment: Order Date: 07/20/24Order Info: [id number] - UACCOLLECTOR TO SPECIFY Result Comment: UTO Performed By: #### L 100.0100, L501.9520, L400.0001, L500.4050 ####[facility] [address] [place], [address] Nitrite Ql (U) Normal Negative [facility] Comment on above: Order Comment: Order Date: 07/20/24Order Info: [id number] - UACCOLLECTOR TO SPECIFY Result Comment: UTO Performed By: #### L 100.0100, L501.9520, L400.0001, L500.4050 ####[facility] [address] [place], [address] OCCULT BLOOD-UR Normal Negative [facility] Comment on above: Order Comment: Order Date: 07/20/24Order Info: [id number] - UACCOLLECTOR TO SPECIFY Result Comment: UTO Performed By: #### L 100.0100, L501.9520, L400.0001, L500.4050 ####[facility] [address] [place], [address] pH UR Normal 5.0 - 8.0 [facility] Comment on above: Order Comment: Order Date: 07/20/24Order Info: [id number] - UACCOLLECTOR TO SPECIFY Result Comment: UTO Performed By: #### L 100.0100, L501.9520, L400.0001, L500.4050 ####[facility] [address] [place], [address] PROT DIPSTX Normal Negative [facility] Comment on above: Order Comment: Order Date: 07/20/24Order Info: [id number] - UACCOLLECTOR TO SPECIFY Result Comment: UTO Performed By: #### L 100.0100, L501.9520, L400.0001, L500.4050 ####[facility] [address] [place], [address] SP.GR. DIPSTX Normal 1.002-1.030 [facility] Comment on above: Order Comment: Order Date: 07/20/24Order Info: [id number] - UACCOLLECTOR TO SPECIFY Result Comment: UTO Performed By: #### L 100.0100, L501.9520, L400.0001, L500.4050 ####[facility] [address] [place], [address] UR Preservative Normal [facility] Comment on above: Order Comment: Order Date: 07/20/24Order Info: [id number] - UACCOLLECTOR TO SPECIFY Result Comment: UTO Performed By: #### L 100.0100, L501.9520, L400.0001, L500.4050 ####[facility] [address] [place], [address] UROBILI Normal Normal [facility] Comment on above: Order Comment: Order Date: 07/20/24Order Info: [id number] - UACCOLLECTOR TO SPECIFY Result Comment: UTO Performed By: #### L 100.0100, L501.9520, L400.0001, L500.4050 ####[facility] [address] [place], [address] Vitamin D,25 Hydroxyon 07-20 Vitamin D 25-OH 45.1 ng/mL Normal 30-100 [facility] Comment on above: Order Comment: Order Date: 10/27/23Order Info: [id number] - BMPOrder Date: 07/20/24Order Info: [id number] - CMPOrder Info: [id number] - LIPIDOrder Info: [id number] - TSH Result Comment: Bethany min D StatusDeficiency: <20 ng/mL (50nmol/L)Insufficiency: 20-30 ng/mL (50-75 nmol/L)Sufficiency: 30-100 ng/mL (75-250 nmol/L)Toxicity: >100 ng/mL (>250 nmol/L) Performed By: #### L 506.1001 ####[facility] [address] [place], [address] White blood cell (WBC) count Ordered By: Kwabena Menjivar on 07-20-2024 WBC (Bld) [#/Vol] 8.3 10*3/uL 4.4-11.0 [facility] Wrist min 3 Viewson 07-21-19 25 Wrist min 3 Views Normal [facility] Absolute lymphocyte countOrd ered By: Keven Etienne on 07-11-2024 Lymphocytes Auto (Unsp spec) [#/Vol] 2.74 10*3/uL 0.83-4.51 [facility] Anion gap in Serum or Plasma Ordered By: Keven Etienne on 07-11-2024 Anion gap [Moles/Vol] 10 mmol/L 5-[address] [facility] Automated lymphocyte count a s percentage of total leukocytesOrdered By: Keven Etienne on 07-11-2024 Lymphocytes/100 WBC Auto (Unsp spec) 40.8 % 19-41 [facility] BUN/creatinine ratioOrdered By: Keven Etienne on 07-11-2024 Urea nitrogen/Creatinine [Mass ratio] 22.0 mg/mg High 10-20 [facility] Basophil percentageOrdered B y: Keven Etienne on 07-11-2024 Basophils/100 WBC (Bld) 0.6 % 0-1 [facility] Carbon dioxide, total [Moles /volume] in Central venous bloodOrdered By: Keven Etienne on 07-11-2024 CO2 [Moles/Vol] 25.7 mmol/L 21.0-32.0 [facility] Chloride assayOrdered By: Edwar Etienne on 07-11-2024 Chloride [Moles/Vol] 104 mmol/L 98-108 [facility] Eosinophil percentageOrdered By: Keven Etienne on 07-11-2024 Eosinophils/100 WBC (Bld) 6.1 % High 0-5 [facility] Erythrocyte distribution wid th ratioOrdered By: Keven Etienne on 07-11-2024 Erythrocyte distribution width (RBC) [Ratio] 13.1 % 11.6-14.6 [facility] Erythrocyte distribution wid th standard deviationOrdered By: Ritacarverkeron Etienne on 07-11-2024 Erythrocyte distribution width (RBC) [Ratio] 42.7 fl 35.1-43.9 [facility] Glomerular filtration rate ( GFR) estimation/1.73 sq m using serum, plasma, or whole bOrdered By: Keven Etienne on 07-11-2024 GFR/1.73 sq M.predicted among non-blacks MDRD (S/P/Bld) [Vol rate/Area] 87 mL/min/{1.73_m2} >60 [facility] Hematocrit Auto (Bld) [Volum e fraction]Ordered By: Keven Etienne on 07-11-2024 Hematocrit (Bld) [Volume fraction] 35.5 % Low 40-54 [facility] Hemoglobin measurementOrdere d By: Keven Etienne on 07-11-2024 Hemoglobin (Bld) [Mass/Vol] 11.9 g/dL Low 13.0-16.5 [facility] Immature granulocytes/100 WB C Auto (Bld)Ordered By: Keven Etienne on 07-11-2024 Immature granulocytes/100 WBC (Bld) 0.300 % 0.0-0.9 [facility] MCV (mean corpuscular volume ) determinationOrdered By: Keven Etienne on 07-11-2024 MCV (RBC) [Entitic vol] 88.8 fL 80-94 [facility] Mean corpuscular hemoglobin (MCH) determinationOrdered By: Keven Etienne on 07-11-2024 MCH (RBC) [Entitic mass] 29.8 pg 27.0-32.0 [facility] Monocyte percentageOrdered B y: Keven Etienne on 07-11-2024 Monocytes/100 WBC (Bld) 8.9 % 0-10 [facility] Neutrophil percentageOrdered By: Keven Etienne on 07-11-2024 Neutrophils/100 WBC (Bld) 43.3 % Low 47-70 [facility] Platelet countOrdered By: Edwar Etienne on 07-11-2024 Platelets (Bld) [#/Vol] 186 10*3/uL 150-450 [facility] Potassium measurement (mass/ volume)Ordered By: Keven Etienne on 07-11-2024 Potassium (Unsp spec) [Mass/Vol] 4.3 mmol/L 3.3-5.1 [facility] RBC Auto (Bld) [#/Vol]Ordere d By: Keven Etienne on 07-11-2024 RBC (Bld) [#/Vol] 4.00 10*6/uL Low 4.6-6.2 [facility] Serum creatinine measurement (mass/volume)Ordered By: Keven Etienne on 07-11-2024 Creatinine [Mass/Vol] 0.86 mg/dL 0.70-1.[address] [facility] Serum glucose measurement (m ass/volume)Ordered By: Keven Etienne on 07-11-2024 Glucose [Mass/Vol] 91 mg/dL 70-99 [facility] Serum or plasma calcium ratna urement (mass/volume)Ordered By: Keven Etienne on 07-11-2024 Calcium [Mass/Vol] 8.8 mg/dL 7.6-11.0 [facility] Serum or plasma urea nitroge n measurement (mass/volume)Ordered By: Keven Etienne on 07-11-2024 Urea nitrogen [Mass/Vol] 19 mg/dL 4-19 [facility] Sodium levelOrdered By: Rita juan alberto Jaimie on 07-11-2024 Sodium [Moles/Vol] 139 mmol/L 133-145 [facility] White blood cell (WBC) count Ordered By: Kveen Etienne on 07-11-2024 WBC (Bld) [#/Vol] 6.7 10*3/uL 4.4-11.0 [facility] Absolute lymphocyte countOrd ered By: Keven Etienne on 07-04-2024 Lymphocytes Auto (Unsp spec) [#/Vol] 2.53 10*3/uL 0.83-4.51 [facility] Anion gap in Serum or Plasma Ordered By: Keven Etienne on 07-04-2024 Anion gap [Moles/Vol] 10 mmol/L 5-[address] [facility] Automated lymphocyte count a s percentage of total leukocytesOrdered By: Keven Etienne on 07-04-2024 Lymphocytes/100 WBC Auto (Unsp spec) 38.2 % 19-41 [facility] BUN/creatinine ratioOrdered By: Keven Etienne on 07-04-2024 Urea nitrogen/Creatinine [Mass ratio] 15.7 mg/mg 10-20 [facility] Basophil percentageOrdered B y: Keven Etienne on 07-04-2024 Basophils/100 WBC (Bld) 0.3 % 0-1 [facility] Carbon dioxide, total [Moles /volume] in Central venous bloodOrdered By: Keven Etienne on 07-04-2024 CO2 [Moles/Vol] 25.9 mmol/L 21.0-32.0 [facility] Chloride assayOrdered By: Edwar Etienne on 07-04-2024 Chloride [Moles/Vol] 105 mmol/L 98-108 [facility] Eosinophil percentageOrdered By: Keven Etienne on 07-04-2024 Eosinophils/100 WBC (Bld) 6.8 % High 0-5 [facility] Erythrocyte distribution wid th ratioOrdered By: Keven Etienne on 07-04-2024 Erythrocyte distribution width (RBC) [Ratio] 12.9 % 11.6-14.6 [facility] Erythrocyte distribution wid th standard deviationOrdered By: Keven Etienne on 07-04-2024 Erythrocyte distribution width (RBC) [Ratio] 41.9 fl 35.1-43.9 [facility] Glomerular filtration rate ( GFR) estimation/1.73 sq m using serum, plasma, or whole bOrdered By: Keven Etienne on 07-04-2024 GFR/1.73 sq M.predicted among non-blacks MDRD (S/P/Bld) [Vol rate/Area] 86 mL/min/{1.73_m2} >60 [facility] Hematocrit Auto (Bld) [Volum e fraction]Ordered By: Keven Etienne 07-04-2024 Hematocrit (Bld) [Volume fraction] 37.0 % Low 40-54 [facility] Hemoglobin measurementOrdere d By: Keven Etienne 07-04-2024 Hemoglobin (Bld) [Mass/Vol] 12.2 g/dL Low 13.0-16.5 [facility] Immature granulocytes/100 WB C Auto (Bld)Ordered By: Keven Etienne 07-04-2024 Immature granulocytes/100 WBC (Bld) 0.300 % 0.0-0.9 [facility] MCV (mean corpuscular volume ) determinationOrdered By: Keven Eitenne 07-04-2024 MCV (RBC) [Entitic vol] 88.5 fL 80-94 [facility] Mean corpuscular hemoglobin (MCH) determinationOrdered By: Keven Etienne 07-04-2024 MCH (RBC) [Entitic mass] 29.2 pg 27.0-32.0 [facility] Monocyte percentageOrdered B y: Keven Monicomarisela on 07-04-2024 Monocytes/100 WBC (Bld) 9.2 % 0-10 [facility] Neutrophil percentageOrdered By: Edwarfrannyjuan alberto Monicodollyjuan luis on 07-04-2024 Neutrophils/100 WBC (Bld) 45.2 % Low 47-70 [facility] Platelet countOrdered By: Edwar remedios Monicodollyjuan luis on 07-04-2024 Platelets (Bld) [#/Vol] 187 10*3/uL 150-450 [facility] Potassium measurement (mass/ volume)Ordered By: Keven Etienne on 07-04-2024 Potassium (Unsp spec) [Mass/Vol] 4.4 mmol/L 3.3-5.1 [facility] RBC Auto (Bld) [#/Vol]Ordere d By: Ritajuan alberto Jaimie on 07-04-2024 RBC (Bld) [#/Vol] 4.18 10*6/uL Low 4.6-6.2 [facility] Serum creatinine measurement (mass/volume)Ordered By: Keven Etienne on 07-04-2024 Creatinine [Mass/Vol] 0.87 mg/dL 0.70-1.[address] [facility] Serum glucose measurement (m ass/volume)Ordered By: Keven Etienne on 07-04-2024 Glucose [Mass/Vol] 95 mg/dL 70-99 [facility] Serum or plasma calcium ratna urement (mass/volume)Ordered By: Keven Etienne on 07-04-2024 Calcium [Mass/Vol] 9.0 mg/dL 7.6-11.0 [facility] Serum or plasma urea nitroge n measurement (mass/volume)Ordered By: Keven Etienne on 07-04-2024 Urea nitrogen [Mass/Vol] 14 mg/dL 4-19 [facility] Sodium levelOrdered By: Rita pattonambika Jaimie on 07-04-2024 Sodium [Moles/Vol] 141 mmol/L 133-145 [facility] White blood cell (WBC) count Ordered By: Keven Etienne on 07-04-2024 WBC (Bld) [#/Vol] 6.6 10*3/uL 4.4-11.0 [facility] Absolute lymphocyte countOrd ered By: Ritacadenkeron Marcdollyjuan luis on 06-26-2024 Lymphocytes Auto (Unsp spec) [#/Vol] 2.99 10*3/uL 0.83-4.51 [facility] Anion gap in Serum or Plasma Ordered By: Keven Etienne on 06-26-2024 Anion gap [Moles/Vol] 8 mmol/L 5-[address] [facility] Automated lymphocyte count a s percentage of total leukocytesOrdered By: Keven Etienne on 06-26-2024 Lymphocytes/100 WBC Auto (Unsp spec) 45.0 % High - [facility] BUN/creatinine ratioOrdered By: Keven Etienne on 06-26-2024 Urea nitrogen/Creatinine [Mass ratio] 18.5 mg/mg 10-20 [facility] Basophil percentageOrdered B y: Keven Marcdollyjuan luis on 06-26-2024 Basophils/100 WBC (Bld) 0.6 % 0-1 [facility] Carbon dioxide, total [Moles /volume] in Central venous bloodOrdered By: Keven Etienne on 06-26-2024 CO2 [Moles/Vol] 25.7 mmol/L 21.0-32.0 [facility] Chloride assayOrdered By: Edwar Etienne on 06-26-2024 Chloride [Moles/Vol] 105 mmol/L 98-108 [facility] Eosinophil percentageOrdered By: Keven Marcdollyjuan luis on 06-26-2024 Eosinophils/100 WBC (Bld) 4.1 % 0-5 [facility] Erythrocyte distribution wid th ratioOrdered By: Keven Etienne on 06-26-2024 Erythrocyte distribution width (RBC) [Ratio] 13.0 % 11.6-14.6 [facility] Erythrocyte distribution wid th standard deviationOrdered By: Keven Etienne on 06-26-2024 Erythrocyte distribution width (RBC) [Ratio] 42.1 fl 35.1-43.9 [facility] Glomerular filtration rate ( GFR) estimation/1.73 sq m using serum, plasma, or whole bOrdered By: Keven Etienne on 06-26-2024 GFR/1.73 sq M.predicted among non-blacks MDRD (S/P/Bld) [Vol rate/Area] 85 mL/min/{1.73_m2} >60 [facility] Hematocrit Auto (Bld) [Volum e fraction]Ordered By: Keven Etienne on 06-26-2024 Hematocrit (Bld) [Volume fraction] 35.2 % Low 40-54 [facility] Hemoglobin measurementOrdere d By: Keven Etienne on 06-26-2024 Hemoglobin (Bld) [Mass/Vol] 11.7 g/dL Low 13.0-16.5 [facility] Immature granulocytes/100 WB C Auto (Bld)Ordered By: remedios Etienne on 06-26-2024 Immature granulocytes/100 WBC (Bld) 0.200 % 0.0-0.9 [facility] MCV (mean corpuscular volume ) determinationOrdered By: remedios Etienne on 06-26-2024 MCV (RBC) [Entitic vol] 88.4 fL 80-94 [facility] Mean corpuscular hemoglobin (MCH) determinationOrdered By: frannycarverkeron Etienne on 06-26-2024 MCH (RBC) [Entitic mass] 29.4 pg 27.0-32.0 [facility] Monocyte percentageOrdered B y: Keven Etienne on 06-26-2024 Monocytes/100 WBC (Bld) 9.5 % 0-10 [facility] Neutrophil percentageOrdered By: [facility] on 06-26-2024 Neutrophils/100 WBC (Bld) 40.6 % Low 47-70 [facility] Platelet countOrdered By: Edwar Etienne on 06-26-2024 Platelets (Bld) [#/Vol] 177 10*3/uL 150-450 [facility] Potassium measurement (mass/ volume)Ordered By: remedios Etienne on 06-26-2024 Potassium (Unsp spec) [Mass/Vol] 4.4 mmol/L 3.3-5.1 [facility] RBC Auto (Bld) [#/Vol]Ordere d By: Bisikeron Marcdollyjuan ulis on 06-26-2024 RBC (Bld) [#/Vol] 3.98 10*6/uL Low 4.6-6.2 [facility] Serum creatinine measurement (mass/volume)Ordered By: Keven Etienne on 06-26-2024 Creatinine [Mass/Vol] 0.91 mg/dL 0.70-1.[address] [facility] Serum glucose measurement (m ass/volume)Ordered By: Keven Etienne on 06-26-2024 Glucose [Mass/Vol] 90 mg/dL 70-99 [facility] Serum or plasma calcium ratna urement (mass/volume)Ordered By: Keven Etienne on 06-26-2024 Calcium [Mass/Vol] 8.9 mg/dL 7.6-11.0 [facility] Serum or plasma urea nitroge n measurement (mass/volume)Ordered By: Keven Etienne on 06-26-2024 Urea nitrogen [Mass/Vol] 17 mg/dL 4- [facility] Sodium levelOrdered By: Rita avendano Monicodollyjuan luis on 06-26-2024 Sodium [Moles/Vol] 139 mmol/L 133-145 [facility] White blood cell (WBC) count Ordered By: Keven Etienne on 06-26-2024 WBC (Bld) [#/Vol] 6.7 10*3/uL 4.4-11.0 [facility] Absolute lymphocyte countOrd ered By: Keven Etienne on 06-19-2024 Lymphocytes Auto (Unsp spec) [#/Vol] 2.85 10*3/uL 0.83-4.51 [facility] Anion gap in Serum or Plasma Ordered By: Keven Etienne on 06-19-2024 Anion gap [Moles/Vol] 10 mmol/L - [facility] Automated lymphocyte count a s percentage of total leukocytesOrdered By: Keven Etienne on 06-19-2024 Lymphocytes/100 WBC Auto (Unsp spec) 41.2 % High - [facility] BUN/creatinine ratioOrdered By: Keven Etienne on 06-19-2024 Urea nitrogen/Creatinine [Mass ratio] 24.2 mg/mg High 10-20 [facility] Basophil percentageOrdered B y: Keven Etienne on 06-19-2024 Basophils/100 WBC (Bld) 0.6 % 0-1 [facility] Carbon dioxide, total [Moles /volume] in Central venous bloodOrdered By: Keven Etienne on 06-19-2024 CO2 [Moles/Vol] 25.5 mmol/L 21.0-32.0 [facility] Chloride assayOrdered By: Edwar Etienne on 06-19-2024 Chloride [Moles/Vol] 105 mmol/L 98-108 [facility] Eosinophil percentageOrdered By: frannycarverkeron Etienne on 06-19-2024 Eosinophils/100 WBC (Bld) 4.9 % 0-5 [facility] Erythrocyte distribution wid th ratioOrdered By: Keven Etienne on 06-19-2024 Erythrocyte distribution width (RBC) [Ratio] 13.0 % 11.6-14.6 [facility] Erythrocyte distribution wid th standard deviationOrdered By: remedios Etienne on 06-19-2024 Erythrocyte distribution width (RBC) [Ratio] 42.8 fl 35.1-43.9 [facility] Glomerular filtration rate ( GFR) estimation/1.73 sq m using serum, plasma, or whole bOrdered By: Keven Etienne on 06-19-2024 GFR/1.73 sq M.predicted among non-blacks MDRD (S/P/Bld) [Vol rate/Area] 86 mL/min/{1.73_m2} >60 [facility] Hematocrit Auto (Bld) [Volum e fraction]Ordered By: Keven Etienne on 06-19-2024 Hematocrit (Bld) [Volume fraction] 36.0 % Low 40-54 [facility] Hemoglobin measurementOrdere d By: Keven Eteinne on 06-19-2024 Hemoglobin (Bld) [Mass/Vol] 11.8 g/dL Low 13.0-16.5 [facility] Immature granulocytes/100 WB C Auto (Bld)Ordered By: Keven Etienne on 06-19-2024 Immature granulocytes/100 WBC (Bld) 0.300 % 0.0-0.9 [facility] MCV (mean corpuscular volume ) determinationOrdered By: Keven Etienne on 06-19-2024 MCV (RBC) [Entitic vol] 90.0 fL 80-94 [facility] Mean corpuscular hemoglobin (MCH) determinationOrdered By: Keven Etienne on 06-19-2024 MCH (RBC) [Entitic mass] 29.5 pg 27.0-32.0 [facility] Monocyte percentageOrdered B y: Keven Etienne on 06-19-2024 Monocytes/100 WBC (Bld) 9.5 % 0-10 [facility] Neutrophil percentageOrdered By: Keven Etienne on 06-19-2024 Neutrophils/100 WBC (Bld) 43.5 % Low 47-70 [facility] Platelet countOrdered By: Edwar frannyjuan alberto Etienne on 06-19-2024 Platelets (Bld) [#/Vol] 185 10*3/uL 150-450 [facility] Potassium measurement (mass/ volume)Ordered By: Kevne Etienne on 06-19-2024 Potassium (Unsp spec) [Mass/Vol] 4.4 mmol/L 3.3-5.1 [facility] RBC Auto (Bld) [#/Vol]Ordere d By: Keven Etienne on 06-19-2024 RBC (Bld) [#/Vol] 4.00 10*6/uL Low 4.6-6.2 [facility] Serum creatinine measurement (mass/volume)Ordered By: Keven Etienne on 06-19-2024 Creatinine [Mass/Vol] 0.89 mg/dL 0.70-1.[address] [facility] Serum glucose measurement (m ass/volume)Ordered By: Keven Etienne on 06-19-2024 Glucose [Mass/Vol] 91 mg/dL 70-99 [facility] Serum or plasma calcium ratna urement (mass/volume)Ordered By: Keven Etienne on 06-19-2024 Calcium [Mass/Vol] 9.0 mg/dL 7.6-11.0 [facility] Serum or plasma urea nitroge n measurement (mass/volume)Ordered By: Keven Etienne on 06-19-2024 Urea nitrogen [Mass/Vol] 22 mg/dL High 4-19 [facility] Sodium levelOrdered By: Rita juan alberto Jaimie on 06-19-2024 Sodium [Moles/Vol] 141 mmol/L 133-145 [facility] White blood cell (WBC) count Ordered By: Keven Etienne on 06-19-2024 WBC (Bld) [#/Vol] 6.9 10*3/uL 4.4-11.0 [facility] Absolute lymphocyte countOrd ered By: Keven Etienne on 06-12-2024 Lymphocytes Auto (Unsp spec) [#/Vol] 2.89 10*3/uL 0.83-4.51 [facility] Anion gap in Serum or Plasma Ordered By: Keven Etienne on 06-12-2024 Anion gap [Moles/Vol] 10 mmol/L 5-[address] [facility] Automated lymphocyte count a s percentage of total leukocytesOrdered By: Keven Etienne on 06-12-2024 Lymphocytes/100 WBC Auto (Unsp spec) 41.1 % High 19-41 [facility] BUN/creatinine ratioOrdered By: Keven Etienne on 06-12-2024 Urea nitrogen/Creatinine [Mass ratio] 20.6 mg/mg High 10-20 [facility] Basophil percentageOrdered B y: Keven Etienne on 06-12-2024 Basophils/100 WBC (Bld) 0.3 % 0-1 [facility] Carbon dioxide, total [Moles /volume] in Central venous bloodOrdered By: Keven Etienne on 06-12-2024 CO2 [Moles/Vol] 24.3 mmol/L 21.0-32.0 [facility] Chloride assayOrdered By: Edwar Etienne on 06-12-2024 Chloride [Moles/Vol] 105 mmol/L 98-108 [facility] Eosinophil percentageOrdered By: Keven Etienne on 06-12-2024 Eosinophils/100 WBC (Bld) 3.6 % 0-5 [facility] Erythrocyte distribution wid th ratioOrdered By: [facility] on 06-12-2024 Erythrocyte distribution width (RBC) [Ratio] 12.9 % 11.6-14.6 [facility] Erythrocyte distribution wid th standard deviationOrdered By: frannycarverkeron Etienne on 06-12-2024 Erythrocyte distribution width (RBC) [Ratio] 41.6 fl 35.1-43.9 [facility] Glomerular filtration rate ( GFR) estimation/1.73 sq m using serum, plasma, or whole bOrdered By: frannycarverkeron Etienne on 06-12-2024 GFR/1.73 sq M.predicted among non-blacks MDRD (S/P/Bld) [Vol rate/Area] 87 mL/min/{1.73_m2} >60 [facility] Hematocrit Auto (Bld) [Volum e fraction]Ordered By: Keven Etienen on 06-12-2024 Hematocrit (Bld) [Volume fraction] 34.2 % Low 40-54 [facility] Hemoglobin measurementOrdere d By: Keven Etienne on 06-12-2024 Hemoglobin (Bld) [Mass/Vol] 11.4 g/dL Low 13.0-16.5 [facility] Immature granulocytes/100 WB C Auto (Bld)Ordered By: Keven Etienne on 06-12-2024 Immature granulocytes/100 WBC (Bld) 0.100 % 0.0-0.9 [facility] MCV (mean corpuscular volume ) determinationOrdered By: Keven Etienne on 06-12-2024 MCV (RBC) [Entitic vol] 88.4 fL 80-94 [facility] Mean corpuscular hemoglobin (MCH) determinationOrdered By: frannycarverkeron Etienne 06-12-2024 MCH (RBC) [Entitic mass] 29.5 pg 27.0-32.0 [facility] Monocyte percentageOrdered B y: Keven Etienne on 06-12-2024 Monocytes/100 WBC (Bld) 9.4 % 0-10 [facility] Neutrophil percentageOrdered By: Keven Etienne on 06-12-2024 Neutrophils/100 WBC (Bld) 45.5 % Low 47-70 [facility] Platelet countOrdered By: Edwar Etienne on 06-12-2024 Platelets (Bld) [#/Vol] 188 10*3/uL 150-450 [facility] Potassium measurement (mass/ volume)Ordered By: Keven Etienne on 06-12-2024 Potassium (Unsp spec) [Mass/Vol] 4.2 mmol/L 3.3-5.1 [facility] RBC Auto (Bld) [#/Vol]Ordere d By: Keven Etienne on 06-12-2024 RBC (Bld) [#/Vol] 3.87 10*6/uL Low 4.6-6.2 [facility] Serum creatinine measurement (mass/volume)Ordered By: Keven Etienne on 06-12-2024 Creatinine [Mass/Vol] 0.85 mg/dL 0.70-1.[address] [facility] Serum glucose measurement (m ass/volume)Ordered By: Keven Etienne on 06-12-2024 Glucose [Mass/Vol] 94 mg/dL 70-99 [facility] Serum or plasma calcium ratna urement (mass/volume)Ordered By: Keven Etienne 06-12-2024 Calcium [Mass/Vol] 8.9 mg/dL 7.6-11.0 [facility] Serum or plasma urea nitroge n measurement (mass/volume)Ordered By: Keven Etienne on 06-12-2024 Urea nitrogen [Mass/Vol] 18 mg/dL 4-19 [facility] Sodium levelOrdered By: Rita Etienne on 06-12-2024 Sodium [Moles/Vol] 140 mmol/L 133-145 [facility] White blood cell (WBC) count Ordered By: Keven Etienne 06-12-2024 WBC (Bld) [#/Vol] 7.0 10*3/uL 4.4-11.0 [facility] Absolute lymphocyte countOrd ered By: Keven Etienne on 06-05-2024 Lymphocytes Auto (Unsp spec) [#/Vol] 2.57 10*3/uL 0.83-4.51 [facility] Anion gap in Serum or Plasma Ordered By: Keven Etienne on 06-05-2024 Anion gap [Moles/Vol] 10 mmol/L 5-[address] [facility] Automated lymphocyte count a s percentage of total leukocytesOrdered By: Keven Etienne on 06-05-2024 Lymphocytes/100 WBC Auto (Unsp spec) 40.3 % 19-41 [facility] BUN/creatinine ratioOrdered By: Keven Etienne on 06-05-2024 Urea nitrogen/Creatinine [Mass ratio] 17.2 mg/mg 10-20 [facility] Basophil percentageOrdered B y: Keven Etienne on 06-05-2024 Basophils/100 WBC (Bld) 0.5 % 0-1 [facility] Carbon dioxide, total [Moles /volume] in Central venous bloodOrdered By: Keven Etienne on 06-05-2024 CO2 [Moles/Vol] 25.7 mmol/L 21.0-32.0 [facility] Chloride assayOrdered By: Edwar Etienne on 06-05-2024 Chloride [Moles/Vol] 106 mmol/L 98-108 [facility] Eosinophil percentageOrdered By: Keven Etienne on 06-05-2024 Eosinophils/100 WBC (Bld) 5.2 % High 0-5 [facility] Erythrocyte distribution wid th ratioOrdered By: Keven Etienne on 06-05-2024 Erythrocyte distribution width (RBC) [Ratio] 12.5 % 11.6-14.6 [facility] Erythrocyte distribution wid th standard deviationOrdered By: Keven Etienne on 06-05-2024 Erythrocyte distribution width (RBC) [Ratio] 40.6 fl 35.1-43.9 [facility] Glomerular filtration rate ( GFR) estimation/1.73 sq m using serum, plasma, or whole bOrdered By: Keven Etienne on 06-05-2024 GFR/1.73 sq M.predicted among non-blacks MDRD (S/P/Bld) [Vol rate/Area] 87 mL/min/{1.73_m2} >60 [facility] Hematocrit Auto (Bld) [Volum e fraction]Ordered By: Keven Etienne on 06-05-2024 Hematocrit (Bld) [Volume fraction] 35.3 % Low 40-54 [facility] Hemoglobin measurementOrdere d By: Keven Etienne on 06-05-2024 Hemoglobin (Bld) [Mass/Vol] 11.9 g/dL Low 13.0-16.5 [facility] Immature granulocytes/100 WB C Auto (Bld)Ordered By: Keven Etienne on 06-05-2024 Immature granulocytes/100 WBC (Bld) 0.300 % 0.0-0.9 [facility] MCV (mean corpuscular volume ) determinationOrdered By: Ritacarverkeron Etienne on 06-05-2024 MCV (RBC) [Entitic vol] 88.7 fL 80-94 [facility] Mean corpuscular hemoglobin (MCH) determinationOrdered By: frannycarverkeron Etienne on 06-05-2024 MCH (RBC) [Entitic mass] 29.9 pg 27.0-32.0 [facility] Monocyte percentageOrdered B y: Keven Etienne on 06-05-2024 Monocytes/100 WBC (Bld) 10.8 % High 0-10 [facility] Neutrophil percentageOrdered By: Keven Etienne on 06-05-2024 Neutrophils/100 WBC (Bld) 42.9 % Low 47-70 [facility] Platelet countOrdered By: Edwar nitishkeron Etienne on 06-05-2024 Platelets (Bld) [#/Vol] 163 10*3/uL 150-450 [facility] Potassium measurement (mass/ volume)Ordered By: Keven Etienne on 06-05-2024 Potassium (Unsp spec) [Mass/Vol] 4.2 mmol/L 3.3-5.1 [facility] RBC Auto (Bld) [#/Vol]Ordere d By: Keven Etienne on 06-05-2024 RBC (Bld) [#/Vol] 3.98 10*6/uL Low 4.6-6.2 [facility] Serum creatinine measurement (mass/volume)Ordered By: Keven Etienne on 06-05-2024 Creatinine [Mass/Vol] 0.86 mg/dL 0.70-1.[address] [facility] Serum glucose measurement (m ass/volume)Ordered By: Keven Etienne on 06-05-2024 Glucose [Mass/Vol] 95 mg/dL 70-99 [facility] Serum or plasma calcium ratna urement (mass/volume)Ordered By: Keven Etienne on 06-05-2024 Calcium [Mass/Vol] 9.0 mg/dL 7.6-11.0 [facility] Serum or plasma urea nitroge n measurement (mass/volume)Ordered By: Keven Etienne on 06-05-2024 Urea nitrogen [Mass/Vol] 15 mg/dL 4-19 [facility] Sodium levelOrdered By: Rita juan alberto Jaimie on 06-05-2024 Sodium [Moles/Vol] 142 mmol/L 133-145 [facility] White blood cell (WBC) count Ordered By: Keven Etienne on 06-05-2024 WBC (Bld) [#/Vol] 6.4 10*3/uL 4.4-11.0 [facility] Cerv Spine 2 or 3 Viewson Cerv Spine 2 or 3 Views Normal [facility] Orthopedic Visit Reporton Orthopedic Visit Report Normal [facility] Absolute lymphocyte countOrd ered By: Keven Etienne on 05-29-2024 Lymphocytes Auto (Unsp spec) [#/Vol] 2.20 10*3/uL 0.83-4.51 [facility] Absolute neutrophil countOrd ered By: Keven Etienne on 05-29-2024 Neutrophils (Bld) [#/Vol] 3.3 10*3/uL 2.0-7.7 [facility] Anion gap in Serum or Plasma Ordered By: Keven Etienne on 05-29-2024 Anion gap [Moles/Vol] 10 mmol/L 5-[address] [facility] Automated lymphocyte count a s percentage of total leukocytesOrdered By: Keven Etienne on 05-29-2024 Lymphocytes/100 WBC Auto (Unsp spec) 34.3 % 19-41 [facility] BUN/creatinine ratioOrdered By: Ritacarverkeron Etienne on 05-29-2024 Urea nitrogen/Creatinine [Mass ratio] 19.7 mg/mg 10-20 [facility] Basophil percentageOrdered B y: Keven Etienne on 05-29-2024 Basophils/100 WBC (Bld) 0.6 % 0-1 [facility] Carbon dioxide, total [Moles /volume] in Central venous bloodOrdered By: Keven Etienne on 05-29-2024 CO2 [Moles/Vol] 25.2 mmol/L 21.0-32.0 [facility] Chloride assayOrdered By: Edwar Etienne on 05-29-2024 Chloride [Moles/Vol] 108 mmol/L 98-108 [facility] Eosinophil percentageOrdered By: Keven Etienne on 05-29-2024 Eosinophils/100 WBC (Bld) 4.2 % 0-5 [facility] Erythrocyte distribution wid th (RBC) [Ratio]Ordered By: Keven Etienne on 05-29-2024 Erythrocyte distribution width (RBC) [Entitic vol] 41.1 fL 35.1-43.9 [facility] Erythrocyte distribution wid th ratioOrdered By: frannycarverkeron Etienne on 05-29-2024 Erythrocyte distribution width (RBC) [Ratio] 12.6 % 11.6-14.6 [facility] Erythrocyte distribution wid th standard deviationOrdered By: frannycarverkeron Etienne on 05-29-2024 Erythrocyte distribution width (RBC) [Ratio] 41.1 fl 35.1-43.9 [facility] GFR/1.73 sq M.predicted darrick g non-blacks MDRD (S/P/Bld) [Vol rate/Area]Ordered By: Keven Etienne on 05-29-2024 Estimated GFR (MDRD) Non-Af Amer 78 >60 [facility] Comment on above: mL/min/1.73m2 CKD-EP I Creatinine Equation (2020) Glomerular filtration rate ( GFR) estimation/1.73 sq m using serum, plasma, or whole bOrdered By: Keven Etienne on 05-29-2024 GFR/1.73 sq M.predicted among non-blacks MDRD (S/P/Bld) [Vol rate/Area] 78 mL/min/{1.73_m2} >60 [facility] Hematocrit Auto (Bld) [Volum e fraction]Ordered By: Keven Etienne on 05-29-2024 Hematocrit (Bld) [Volume fraction] 37.4 % Low 40-54 [facility] Hemoglobin measurementOrdere d By: remedios Etienne on 05-29-2024 Hemoglobin (Bld) [Mass/Vol] 12.3 g/dL Low 13.0-16.5 [facility] Immature granulocytes/100 WB C Auto (Bld)Ordered By: [facility] Marcjuan luis on 05-29-2024 Immature granulocytes/100 WBC (Bld) 0.500 % 0.0-0.9 [facility] Comment on above: IG% - Immature Granu locytes (promyelocytes, myelocytes and metamyelocytes) > 1% indicates that a LEFT SHIFT is Present. Lymphocytes Auto (Unsp spec) [#/Vol]Ordered By: frannycarverkeron Etienne on 05-29-2024 Lymphocytes (Bld) [#/Vol] 2.20 10*3/uL 0.83-4.51 [facility] Lymphocytes/100 WBC Auto (Un sp spec)Ordered By: Keven Etienne on 05-29-2024 Lymphocytes/100 WBC (Bld) 34.3 % 19-41 [facility] MCV (mean corpuscular volume ) determinationOrdered By: Ritacarverkeron Etienne on 05-29-2024 MCV (RBC) [Entitic vol] 89.3 fL 80-94 [facility] Mean corpuscular hemoglobin (MCH) determinationOrdered By: [facility]eron Etienne on 05-29-2024 MCH (RBC) [Entitic mass] 29.4 pg 27.0-32.0 [facility] Mean corpuscular hemoglobin concentration (MCHC) determinationOrdered By: Keven Etienne on 05-29-2024 MCHC (RBC) [Mass/Vol] 32.9 g/dL 32-[address] [facility] Mean platelet volume determi nationOrdered By: Keven Etienne on 05-29-2024 Platelet mean volume (Bld) [Entitic vol] 9.2 fL 6.2-12.0 [facility] Monocyte percentageOrdered B y: Keven Etienne on 05-29-2024 Monocytes/100 WBC (Bld) 8.4 % 0-10 [facility] Neutrophil percentageOrdered By: Keven Etienne on 05-29-2024 Neutrophils/100 WBC (Bld) 52.0 % 47-70 [facility] Nucleated red blood cell per centageOrdered By: Keven Etienne on 05-29-2024 Nucleated RBC/100 WBC (Bld) [Ratio] 0 % 0-5 [facility] Platelet countOrdered By: Edwar frannyjuan alberto Etienne on 05-29-2024 Platelets (Bld) [#/Vol] 185 10*3/uL 150-450 [facility] Potassium (Unsp spec) [Mass/ Vol]Ordered By: Keven Etienne on 05-29-2024 Potassium [Moles/Vol] 4.3 mmol/L 3.3-5.[address] [facility] Potassium measurement (mass/ volume)Ordered By: Keven Etienne on 05-29-2024 Potassium (Unsp spec) [Mass/Vol] 4.3 mmol/L 3.3-5.1 [facility] RBC Auto (Bld) [#/Vol]Ordere d By: Keven Etienne on 05-29-2024 RBC (Bld) [#/Vol] 4.19 10*6/uL Low 4.6-6.2 [facility] Serum creatinine measurement (mass/volume)Ordered By: Keven Etienne on 05-29-2024 Creatinine [Mass/Vol] 0.97 mg/dL 0.70-1.[address] [facility] Serum glucose measurement (m ass/volume)Ordered By: Keven Etienne on 05-29-2024 Glucose [Mass/Vol] 95 mg/dL 70-99 [facility] Serum or plasma calcium ratna urement (mass/volume)Ordered By: Keven Etienne on 05-29-2024 Calcium [Mass/Vol] 8.8 mg/dL 7.6-11.0 [facility] Serum or plasma urea nitroge n measurement (mass/volume)Ordered By: Keven Etienne on 05-29-2024 Urea nitrogen [Mass/Vol] 19 mg/dL 4-19 [facility] Sodium levelOrdered By: Edwarfranny avendano Monicodollyjuan luis on 05-29-2024 Sodium [Moles/Vol] 143 mmol/L 133-145 [facility] White blood cell (WBC) count Ordered By: Keven Etienne on 05-29-2024 WBC (Bld) [#/Vol] 6.4 10*3/uL 4.4-11.0 [facility] Abdomen Single Viewon 2024 Abdomen Single View Normal [facility] Gastroenterology Visit Repor ton 05-25-2024 Gastroenterology Visit Report Normal [facility] Absolute lymphocyte countOrd ered By: Keven Etienne on 05-22-2024 Lymphocytes Auto (Unsp spec) [#/Vol] 2.46 10*3/uL 0.83-4.51 [facility] Absolute neutrophil countOrd ered By: Keven Etienne on 05-22-2024 Neutrophils (Bld) [#/Vol] 4.3 10*3/uL 2.0-7.7 [facility] Anion gap in Serum or Plasma Ordered By: Keven Etienne on 05-22-2024 Anion gap [Moles/Vol] 10 mmol/L 5-[address] [facility] Automated lymphocyte count a s percentage of total leukocytesOrdered By: Keven Etienne on 05-22-2024 Lymphocytes/100 WBC Auto (Unsp spec) 32.5 % 19-41 [facility] BUN/creatinine ratioOrdered By: Keven Etienne on 05-22-2024 Urea nitrogen/Creatinine [Mass ratio] 24.1 mg/mg High 10-20 [facility] Basophil percentageOrdered B y: Ritacadenkeron Marcdollyjuan luis on 05-22-2024 Basophils/100 WBC (Bld) 0.5 % 0-1 [facility] Bilirubin, totalOrdered By: Keven Marcdollyjuan luis on 05-22-2024 Bilirubin [Mass/Vol] 0.44 mg/dL 0.00-1.30 [facility] Carbon dioxide, total [Moles /volume] in Central venous bloodOrdered By: Keven Etienne on 05-22-2024 CO2 [Moles/Vol] 23.9 mmol/L 21.0-32.0 [facility] Chloride assayOrdered By: Edwar frannyjuan alberto Etienne on 05-22-2024 Chloride [Moles/Vol] 104 mmol/L 98-108 [facility] Eosinophil percentageOrdered By: Edwarremedios Marcdollyjuan luis on 05-22-2024 Eosinophils/100 WBC (Bld) 2.5 % 0-5 [facility] Erythrocyte distribution wid th (RBC) [Ratio]Ordered By: Keven Etienne on 05-22-2024 Erythrocyte distribution width (RBC) [Entitic vol] 41.4 fL 35.1-43.9 [facility] Erythrocyte distribution wid th ratioOrdered By: Keven Etienne on 05-22-2024 Erythrocyte distribution width (RBC) [Ratio] 12.7 % 11.6-14.6 [facility] Erythrocyte distribution wid th standard deviationOrdered By: Ritacarverkeron Etienne on 05-22-2024 Erythrocyte distribution width (RBC) [Ratio] 41.4 fl 35.1-43.9 [facility] GFR/1.73 sq M.predicted darrick g non-blacks MDRD (S/P/Bld) [Vol rate/Area]Ordered By: Keven Etienne on 05-22-2024 Estimated GFR (MDRD) Non-Af Amer 73 >60 [facility] Comment on above: mL/min/1.73m2 CKD-EP I Creatinine Equation (2020) Glomerular filtration rate ( GFR) estimation/1.73 sq m using serum, plasma, or whole bOrdered By: Keven Etienne on 05-22-2024 GFR/1.73 sq M.predicted among non-blacks MDRD (S/P/Bld) [Vol rate/Area] 73 mL/min/{1.73_m2} >60 [facility] Hematocrit Auto (Bld) [Volum e fraction]Ordered By: Keven Etienne on 05-22-2024 Hematocrit (Bld) [Volume fraction] 36.8 % Low 40-54 [facility] Hemoglobin measurementOrdere d By: Keven Etienne on 05-22-2024 Hemoglobin (Bld) [Mass/Vol] 12.1 g/dL Low 13.0-16.5 [facility] Immature granulocytes/100 WB C Auto (Bld)Ordered By: Keven Etienne on 05-22-2024 Immature granulocytes/100 WBC (Bld) 0.500 % 0.0-0.9 [facility] Comment on above: IG% - Immature Granu locytes (promyelocytes, myelocytes and metamyelocytes) > 1% indicates that a LEFT SHIFT is Present. Laboratory - Chemistry and C hemistry - challengeOrdered By: Keven Etienne on 05-22-2024 AST [Catalytic activity/Vol] 33 U/L <38 [facility] Comment on above: Hemolysis present, R esults could be affected. Lymphocytes Auto (Unsp spec) [#/Vol]Ordered By: Keven Etienne on 05-22-2024 Lymphocytes (Bld) [#/Vol] 2.46 10*3/uL 0.83-4.51 [facility] Lymphocytes/100 WBC Auto (Un sp spec)Ordered By: Keven Etienne on 05-22-2024 Lymphocytes/100 WBC (Bld) 32.5 % 19-41 [facility] MCV (mean corpuscular volume ) determinationOrdered By: Keven Etienne on 05-22-2024 MCV (RBC) [Entitic vol] 89.1 fL 80-94 [facility] Mean corpuscular hemoglobin (MCH) determinationOrdered By: Keven Etienne on 05-22-2024 MCH (RBC) [Entitic mass] 29.3 pg 27.0-32.0 [facility] Mean corpuscular hemoglobin concentration (MCHC) determinationOrdered By: Keven Etienne on 05-22-2024 MCHC (RBC) [Mass/Vol] 32.9 g/dL 32-[address] [facility] Mean platelet volume determi nationOrdered By: Edwarfrannycadenkeron Marcdollyjuan luis on 05-22-2024 Platelet mean volume (Bld) [Entitic vol] 8.7 fL 6.2-12.0 [facility] Monocyte percentageOrdered B y: Ritacadenkeron Marcdollyjuan luis on 05-22-2024 Monocytes/100 WBC (Bld) 7.4 % 0-10 [facility] Neutrophil percentageOrdered By: frannycarverkeron Marcdollyjuan luis on 05-22-2024 Neutrophils/100 WBC (Bld) 56.6 % 47-70 [facility] No Panel InformationOrdered By: Keven Etienne on 05-22-2024 33 U/L <38 [facility] Nucleated red blood cell per centageOrdered By: Ritacadenkeron Marcdollyjuan luis on 05-22-2024 Nucleated RBC/100 WBC (Bld) [Ratio] 0 % 0-5 [facility] Platelet countOrdered By: Edwar remedios Monicodollyjuan luis on 05-22-2024 Platelets (Bld) [#/Vol] 217 10*3/uL 150-450 [facility] Potassium (Unsp spec) [Mass/ Vol]Ordered By: Ritacadenkeron Marcdollyjuan luis on 05-22-2024 Potassium [Moles/Vol] 4.3 mmol/L 3.3-5.[address] [facility] Comment on above: Hemolysis present, R esults could be affected. Potassium measurement (mass/ volume)Ordered By: Keven Etienne on 05-22-2024 Potassium (Unsp spec) [Mass/Vol] 4.3 mmol/L 3.3-5.1 [facility] RBC Auto (Bld) [#/Vol]Ordere d By: Edwarnitishkeron Marcdollyjuan luis on 05-22-2024 RBC (Bld) [#/Vol] 4.13 10*6/uL Low 4.6-6.2 [facility] Serum creatinine measurement (mass/volume)Ordered By: Keven Etienne on 05-22-2024 Creatinine [Mass/Vol] 1.03 mg/dL 0.70-1.[address] [facility] Serum globulin measurementOr dered By: Keven Etienne on 05-22-2024 Globulin (S) [Mass/Vol] 2.4 g/dL 2.2-4.2 [facility] Serum glucose measurement (m ass/volume)Ordered By: Keven Etienne on 05-22-2024 Glucose [Mass/Vol] 91 mg/dL 70-99 [facility] Serum or plasma alanine olmedo otransferase (ALT) measurementOrdered By: Keven Etienne on 05-22-2024 ALT [Catalytic activity/Vol] 44 U/L <47 [facility] Serum or plasma albumin ratna urement (mass/volume)Ordered By: Keven Etienne on 05-22-2024 Albumin [Mass/Vol] 3.3 g/dL Low 3.4-4.8 [facility] Serum or plasma albumin/glob ulin mass ratioOrdered By: Keven Etienne on 05-22-2024 Albumin/Globulin [Mass ratio] 1.4 {ratio} 0.9-2.4 [facility] Serum or plasma alkaline garry sphatase measurementOrdered By: Keven Etienne 05-22-2024 ALP [Catalytic activity/Vol] 139 U/L High 40-129 [facility] Serum or plasma calcium ratna urement (mass/volume)Ordered By: Keven Etienne 05-22-2024 Calcium [Mass/Vol] 8.8 mg/dL 7.6-11.0 [facility] Serum or plasma urea nitroge n measurement (mass/volume)Ordered By: Keven Etienne 05-22-2024 Urea nitrogen [Mass/Vol] 25 mg/dL High 4-19 [facility] Sodium levelOrdered By: Rita Etienne on 05-22-2024 Sodium [Moles/Vol] 139 mmol/L 133-145 [facility] Total proteinOrdered By: Roby Etienne 05-22-2024 Protein [Mass/Vol] 5.8 g/dL Low 5.9-8.4 [facility] White blood cell (WBC) count Ordered By: Keven Etienne on 05-22-2024 WBC (Bld) [#/Vol] 7.6 10*3/uL 4.4-11.0 [facility] Urine Cultureon 05-12-2024 URC Normal [facility] Comment on above: Performed By: #### L 400.0001, M100.2200 ####[facility] [address] [place], [address] Anion gap in Serum or Plasma Ordered By: Corazon Wright on 05-11-2024 Anion gap [Moles/Vol] 10 mmol/L 5-[address] [facility] BUN/creatinine ratioOrdered By: Corazon Wright on 05-11-2024 Urea nitrogen/Creatinine [Mass ratio] 35.5 mg/mg High 10-20 [facility] Basic Metabolic Profile (BMP )on 05-11-2024 BUN/CRE 35.5 RATIO High 10-20 [facility] Comment on above: Performed By: #### L 100.0500, L500.2500 ####[facility] [address] [place], [address] Calcium [Mass/Vol] 8.6 mg/dL Normal 7.6-11.0 [facility] Comment on above: Performed By: #### L 100.0500, L500.2500 ####[facility] [address] [place], [address] Chloride [Moles/Vol] 104 mmol/L Normal 98-108 [facility] Comment on above: Performed By: #### L 100.0500, L500.2500 ####[facility] [address] [place], [address] CO2 [Moles/Vol] 23.4 mmol/L Normal 21.0-32.0 [facility] Comment on above: Performed By: #### L 100.0500, L500.2500 ####[facility] [address] [place], [address] Creatinine [Mass/Vol] 0.96 mg/dL Normal 0.70-1.[address] [facility] Comment on above: Performed By: #### L 100.0500, L500.2500 ####[facility] [address] [place], [address] ECRCL 57.40 ml/min Normal 50-250 [facility] Comment on above: Performed By: #### L 100.0500, L500.2500 ####[facility] [address] [place], [address] GAP 10 Normal 5-15 [facility] Comment on above: Performed By: #### L 100.0500, L500.2500 ####[facility] [address] [place], [address] GFR/1.73 sq M.predicted among non-blacks MDRD (S/P/Bld) [Vol rate/Area] 79 mL/min/{1.73_m2} Normal >60 [facility] Comment on above: Result Comment: mL/m in/1.73m2 CKD-EPI Creatinine Equation (2020) Performed By: #### L 100.0500, L500.2500 ####[facility] [address] [place], [address] Glucose [Mass/Vol] 116 mg/dL High 70-99 [facility] Comment on above: Performed By: #### L 100.0500, L500.2500 ####[facility] [address] [place], [address] Potassium [Moles/Vol] 4.5 mmol/L Normal 3.3-5.[address] [facility] Comment on above: Performed By: #### L 100.0500, L500.2500 ####[facility] [address] [place], [address] Sodium [Moles/Vol] 137 mmol/L Normal 133-145 [facility] Comment on above: Performed By: #### L 100.0500, L500.2500 ####[facility] [address] [place], [address] Urea nitrogen [Mass/Vol] 34 mg/dL High 4-19 [facility] Comment on above: Performed By: #### L 100.0500, L500.2500 ####[facility] [address] [place], [address] CBC-Complete Blood Cnt No Di ffon 05-11-2024 Erythrocyte distribution width (RBC) [Ratio] 12.8 % Normal 11.6-14.6 [facility] Comment on above: Performed By: #### L 100.0500, L500.2500 ####[facility] [address] [place], [address] Hematocrit (Bld) [Volume fraction] 36.7 % Low 40-54 [facility] Comment on above: Performed By: #### L 100.0500, L500.2500 ####[facility] [address] [place], [address] Hemoglobin (Bld) [Mass/Vol] 12.3 g/dL Low 13.0-16.5 [facility] Comment on above: Performed By: #### L 100.0500, L500.2500 ####[facility] [address] [place], [address] MCH (RBC) [Entitic mass] 29.9 pg Normal 27.0-32.0 [facility] Comment on above: Performed By: #### L 100.0500, L500.2500 ####[facility] [address] [place], [address] MCHC (RBC) [Mass/Vol] 33.5 g/dL Normal 32-[address] [facility] Comment on above: Performed By: #### L 100.0500, L500.2500 ####[facility] [address] [place], [address] MCV (RBC) [Entitic vol] 89.1 fL Normal 80-94 [facility] Comment on above: Performed By: #### L 100.0500, L500.2500 ####[facility] [address] [place], [address] Platelet mean volume (Bld) [Entitic vol] 8.8 fL Normal 6.2-12.0 [facility] Comment on above: Performed By: #### L 100.0500, L500.2500 ####[facility] [address] [place], [address] Platelets (Bld) [#/Vol] 232 10*3/uL Normal 150-450 [facility] Comment on above: Performed By: #### L 100.0500, L500.2500 ####[facility] [address] [place], [address] RBC (Bld) [#/Vol] 4.12 10*6/uL Low 4.6-6.2 [facility] Comment on above: Performed By: #### L 100.0500, L500.2500 ####[facility] [address] [place], [address] RDW SD 41.8 fl Normal 35.1-43.9 [facility] Comment on above: Performed By: #### L 100.0500, L500.2500 ####[facility] [address] [place], [address] WBC (Bld) [#/Vol] 9.9 10*3/uL Normal 4.4-11.0 [facility] Comment on above: Performed By: #### L 100.0500, L500.2500 ####[facility] [address] [place], [address] Carbon dioxide, total [Moles /volume] in Central venous bloodOrdered By: Corazon Wright on 05-11-2024 CO2 [Moles/Vol] 23.4 mmol/L 21.0-32.0 [facility] Chloride assayOrdered By: Phil Wright on 05-11-2024 Chloride [Moles/Vol] 104 mmol/L 98-108 [facility] Erythrocyte distribution wid th (RBC) [Ratio]Ordered By: Corazon Wright on 05-11-2024 Erythrocyte distribution width (RBC) [Entitic vol] 41.8 fL 35.1-43.9 [facility] Erythrocyte distribution wid th ratioOrdered By: Corazon Wright on 05-11-2024 Erythrocyte distribution width (RBC) [Ratio] 12.8 % 11.6-14.6 [facility] Erythrocyte distribution wid th standard deviationOrdered By: Corazon Wright on 05-11-2024 Erythrocyte distribution width (RBC) [Ratio] 41.8 fl 35.1-43.9 [facility] Estimation of creatinine yahir aranceOrdered By: Corazon Wright on 05-11-2024 Estimated Creatinine Clearance Calc 57.40 ml/min 50-250 [facility] GFR/1.73 sq M.predicted darrick g non-blacks MDRD (S/P/Bld) [Vol rate/Area]Ordered By: Corazon Wright on 05-11-2024 Estimated GFR (MDRD) Non-Af Amer 79 >60 [facility] Comment on above: mL/min/1.73m2 CKD-EP I Creatinine Equation (2020) Glomerular filtration rate ( GFR) estimation/1.73 sq m using serum, plasma, or whole bOrdered By: Corazon Wright on 05-11-2024 GFR/1.73 sq M.predicted among non-blacks MDRD (S/P/Bld) [Vol rate/Area] 79 mL/min/{1.73_m2} >60 [facility] Hematocrit Auto (Bld) [Volum e fraction]Ordered By: Corazon Wright on 05-11-2024 Hematocrit (Bld) [Volume fraction] 36.7 % Low 40-54 [facility] Hemoglobin measurementOrdere d By: Corazon Wright on 05-11-2024 Hemoglobin (Bld) [Mass/Vol] 12.3 g/dL Low 13.0-16.5 [facility] MCV (mean corpuscular volume ) determinationOrdered By: Corazon Wright on 05-11-2024 MCV (RBC) [Entitic vol] 89.1 fL 80-94 [facility] Mean corpuscular hemoglobin (MCH) determinationOrdered By: Corazon Wright on 05-11-2024 MCH (RBC) [Entitic mass] 29.9 pg 27.0-32.0 [facility] Mean corpuscular hemoglobin concentration (MCHC) determinationOrdered By: Corazon Wright on 05-11-2024 MCHC (RBC) [Mass/Vol] 33.5 g/dL 32-[address] [facility] Mean platelet volume determi nationOrdered By: Corazon Wright on 05-11-2024 Platelet mean volume (Bld) [Entitic vol] 8.8 fL 6.2-12.0 [facility] Platelet countOrdered By: Phil Wright on 05-11-2024 Platelets (Bld) [#/Vol] 232 10*3/uL 150-450 [facility] Potassium (Unsp spec) [Mass/ Vol]Ordered By: Corazon Wright on 05-11-2024 Potassium [Moles/Vol] 4.5 mmol/L 3.3-5.[address] [facility] Potassium measurement (mass/ volume)Ordered By: Corazon Wright on 05-11-2024 Potassium (Unsp spec) [Mass/Vol] 4.5 mmol/L 3.3-5.1 [facility] RBC Auto (Bld) [#/Vol]Ordere d By: Corazon Wright on 05-11-2024 RBC (Bld) [#/Vol] 4.12 10*6/uL Low 4.6-6.2 [facility] Serum creatinine measurement (mass/volume)Ordered By: Corazon Wright on 05-11-2024 Creatinine [Mass/Vol] 0.96 mg/dL 0.70-1.[address] [facility] Serum glucose measurement (m ass/volume)Ordered By: Corazon Wright on 05-11-2024 Glucose [Mass/Vol] 116 mg/dL High 70-99 [facility] Serum or plasma calcium ratna urement (mass/volume)Ordered By: Corazon Wright on 05-11-2024 Calcium [Mass/Vol] 8.6 mg/dL 7.6-11.0 [facility] Serum or plasma urea nitroge n measurement (mass/volume)Ordered By: Corazon Wright on 05-11-2024 Urea nitrogen [Mass/Vol] 34 mg/dL High 4-19 [facility] Sodium levelOrdered By: Corazon Wright on 05-11-2024 Sodium [Moles/Vol] 137 mmol/L 133-145 [facility] White blood cell (WBC) count Ordered By: Corazon Wright on 05-11-2024 WBC (Bld) [#/Vol] 9.9 10*3/uL 4.4-11.0 [facility] Bilirubin Test strip Ql (U)O rdered By: Mariano Chan on 05-10-2024 Bilirubin Ql (U) Negative Negative [facility] Cerv Spine 2 or 3 Viewson Cerv Spine 2 or 3 Views Normal [facility] Epithelial cells.squamous LM Ql (Urine sed)Ordered By: Mariano Chan on 05-10-2024 Epithelial cells.squamous LM.HPF (Urine sed) [#/Area] 0 /[HPF] 0-5 [facility] Glucose Ql (U)Ordered By: Fabian Chan on 05-10-2024 Urine Glucose (UA) Normal mg/dl Normal [facility] Ketones Test strip Ql (U)Ord ered By: Mariano Chan on 05-10-2024 Ketones Ql (U) Negative Negative [facility] Microscopic analysis of urin e for red blood cells (RBC)Ordered By: Mariano Chan on 05-10-2024 Urine RBC 10-25 SEEN /hpf 0-5 [facility] Mucus LM Ql (Urine sed)Order ed By: Mariano Chan on 05-10-2024 Mucus Ql (Urine sed) 0 SEEN /hpf [facility] Nitrite Test strip Ql (U)Ord ered By: Mariano Chan on 05-10-2024 Nitrite Ql (U) Positive High Negative [facility] Protein Test strip Ql (U)Ord ered By: Mariano Chan on 05-10-2024 Protein Ql (U) 500 mg/dl High Negative [facility] Squamous epithelial cells de tection in urine sediment by light microscopyOrdered By: Mariano Chan on 05-10-2024 Epithelial cells.squamous LM Ql (Urine sed) 0 SEEN /hpf 0-5 [facility] Urinalysis, Completeon 05-10 BACTERIA 2+ /hpf Normal None Seen [facility] Comment on above: Order Comment: YOSVANY TER SPECIMEN Performed By: #### L 400.0001, M100.2200 ####[facility] [address] [place], [address] RBC 10-25 SEEN Normal 0-[address] [place] [address] Comment on above: Order Comment: YOSVANY TER SPECIMEN Performed By: #### L 400.0001, M100.2200 ####[facility] [address] [place], [address] WBC 25-50 SEEN Normal 0-[address] [place] [address] Comment on above: Order Comment: YOSVANY TER SPECIMEN Performed By: #### L 400.0001, M100.2200 ####[facility] [address] [place], [address] EPI,SQUAMOUS 0 SEEN Normal [address] [place] [address] Comment on above: Order Comment: YOSVANY TER SPECIMEN Performed By: #### L 400.0001, M100.2200 ####[facility] [address] [place], [address] Mucus Ql (Urine sed) 0 SEEN Normal [facility] Comment on above: Order Comment: YOSVANY TER SPECIMEN Performed By: #### L 400.0001, M100.2200 ####[facility] [address] [place], [address] Urine blood detectionOrdered By: Mariano Chan on 05-10-2024 Urine Occult Blood 250 /ul High Negative [facility] Urine clarityOrdered By: Mariano Chan on 05-10-2024 Clarity (U) Sl. Cloudy Clear [facility] Urine color determinationOrd ered By: Mariano Chan on 05-10-2024 Color (U) Yellow Yellow [facility] Urine cultureOrdered By: Mariano Chan on 05-10-2024 Bacteria identified Cx Nom (U) Enterobacter cloacae complex Abnormal [facility] Urine glucose detectionOrder ed By: Mariano Chan on 05-10-2024 Glucose Ql (U) Normal mg/dl Normal [facility] Urine leukocyte esterase det ection by dipstickOrdered By: Mariano Chan on 05-10-2024 Leukocyte esterase Test strip Ql (U) 500 /ul High Negative [facility] Urine pHOrdered By: Mariano Chan on 05-10-2024 pH (U) 6.0 [pH] 5.0 - 8.0 [facility] Urine sediment bacteria coun t by microscopy (number/high power field)Ordered By: Mariano Chan on 05-10-2024 Bacteria LM.HPF (Urine sed) [#/Area] 2 /[HPF] None Seen [facility] Urine specific gravity measu rementOrdered By: Mariano Chan on 05-10-2024 Specific gravity (U) [Rel density] 1.015 1.002-1.030 [facility] Urine urobilinogen measureme ntOrdered By: Mariano Chan on 05-10-2024 Urobilinogen Ql (U) Normal mg/dl Normal [facility] Urobilinogen Ql (U)Ordered B y: Mariano Chan on 05-10-2024 Urine Urobilinogen Normal mg/dl Normal [facility] White blood cell countOrdere d By: Mariano Chan on 05-10-2024 Urine WBC 25-50 SEEN /hpf 0-5 [facility] White blood cell count 25-50 SEEN /hpf 0-5 [facility] Modified Barium Swallow Stud yon 05-09-2024 Modified Barium Swallow Study Normal [facility] Basic Metabolic Profile (BMP )on 05-04-2024 BUN/CRE 18.0 RATIO Normal 10-20 [facility] Comment on above: Performed By: #### L 500.2500 ####[facility] [address] [place], [place], [address] Calcium [Mass/Vol] 8.2 mg/dL Normal 7.6-11.0 [facility] Comment on above: Performed By: #### L 500.2500 ####[facility] [address] [place], [address] Chloride [Moles/Vol] 111 mmol/L High 98-108 [facility] Comment on above: Performed By: #### L 500.2500 ####[facility] [address] [place], [address] CO2 [Moles/Vol] 21.7 mmol/L Normal 21.0-32.0 [facility] Comment on above: Performed By: #### L 500.2500 ####[facility] [address] [place], [address] Creatinine [Mass/Vol] 0.73 mg/dL Normal 0.70-1.[address] [facility] Comment on above: Performed By: #### L 500.2500 ####[facility] [address] [place], [address] ECRCL 68.88 ml/min Normal 50-250 [facility] Comment on above: Performed By: #### L 500.2500 ####[facility] [address] [place], [address] GAP 8 Normal 5-15 [facility] Comment on above: Performed By: #### L 500.2500 ####[facility] [address] [place], [address] GFR/1.73 sq M.predicted among non-blacks MDRD (S/P/Bld) [Vol rate/Area] 91 mL/min/{1.73_m2} Normal >60 [facility] Comment on above: Result Comment: mL/m in/1.73m2 CKD-EPI Creatinine Equation (2020) Performed By: #### L 500.2500 ####[facility] [address] [place], [address] Glucose [Mass/Vol] 99 mg/dL Normal 70-99 [facility] Comment on above: Performed By: #### L 500.2500 ####[facility] [address] [place], [address] Potassium [Moles/Vol] 4.2 mmol/L Normal 3.3-5.[address] [facility] Comment on above: Performed By: #### L 500.2500 ####[facility] [address] [place], [address] Sodium [Moles/Vol] 140 mmol/L Normal 133-145 [facility] Comment on above: Performed By: #### L 500.2500 ####[facility] [address] [place], [address] Urea nitrogen [Mass/Vol] 13 mg/dL Normal 4-19 [facility] Comment on above: Performed By: #### L 500.2500 ####[facility] [address] [place], [address] HH, Hemoglobin AND Hematocri ton 05-04-2024 Hematocrit (Bld) [Volume fraction] 37.1 % Low 40-54 [facility] Comment on above: Performed By: #### L 100.0600 ####[facility] [address] [place], [address] Hemoglobin (Bld) [Mass/Vol] 12.5 g/dL Low 13.0-16.5 [facility] Comment on above: Performed By: #### L 100.0600 ####[facility] [address] [place], [address] HH, Hemoglobin AND Hematocri ton 05-03-2024 Hematocrit (Bld) [Volume fraction] 38.8 % Low 40-54 [facility] Comment on above: Performed By: #### L 100.0600 ####[facility] [address] [place], [address] Hemoglobin (Bld) [Mass/Vol] 12.9 g/dL Low 13.0-16.5 [facility] Comment on above: Performed By: #### L 100.0600 ####[facility] [address] [place], [address] SP/SP.FEESon 05-02-2024 SP/SP.FEES Normal [facility] Basic Metabolic Profile (BMP )on 05-01-2024 BUN/CRE 21.7 RATIO High 10-20 [facility] Comment on above: Performed By: #### L 500.2500, L501.2300, L100.0500 ####[facility] [address] [place], [address] Calcium [Mass/Vol] 8.1 mg/dL Normal 7.6-11.0 [facility] Comment on above: Performed By: #### L 500.2500, L501.2300, L100.0500 ####[facility] [address] [place], [address] Chloride [Moles/Vol] 109 mmol/L High 98-108 [facility] Comment on above: Performed By: #### L 500.2500, L501.2300, L100.0500 ####[facility] [address] [place], [address] CO2 [Moles/Vol] 23.7 mmol/L Normal 21.0-32.0 [facility] Comment on above: Performed By: #### L 500.2500, L501.2300, L100.0500 ####[facility] [address] [place], [address] Creatinine [Mass/Vol] 0.74 mg/dL Normal 0.70-1.[address] [facility] Comment on above: Performed By: #### L 500.2500, L501.2300, L100.0500 ####[facility] [address] [place], [address] ECRCL 68.88 ml/min Normal 50-250 [facility] Comment on above: Performed By: #### L 500.2500, L501.2300, L100.0500 ####[facility] [address] [place], [address] GAP 8 Normal 5-15 [facility] Comment on above: Performed By: #### L 500.2500, L501.2300, L100.0500 ####[facility] [address] [place], [address] GFR/1.73 sq M.predicted among non-blacks MDRD (S/P/Bld) [Vol rate/Area] 91 mL/min/{1.73_m2} Normal >60 [facility] Comment on above: Result Comment: mL/m in/1.73m2 CKD-EPI Creatinine Equation (2020) Performed By: #### L 500.2500, L501.2300, L100.0500 ####[facility] [address] [place], [address] Glucose [Mass/Vol] 99 mg/dL Normal 70-99 [facility] Comment on above: Performed By: #### L 500.2500, L501.2300, L100.0500 ####[facility] [address] [place], [address] Potassium [Moles/Vol] 4.5 mmol/L Normal 3.3-5.[address] [facility] Comment on above: Performed By: #### L 500.2500, L501.2300, L100.0500 ####[facility] [address] [place], [address] Sodium [Moles/Vol] 141 mmol/L Normal 133-145 [facility] Comment on above: Performed By: #### L 500.2500, L501.2300, L100.0500 ####[facility] [address] [place], [address] Urea nitrogen [Mass/Vol] 16 mg/dL Normal 4-19 [facility] Comment on above: Performed By: #### L 500.2500, L501.2300, L100.0500 ####[facility] [address] [place], [address] CBC-Complete Blood Cnt No Di ffon 05-01-2024 Erythrocyte distribution width (RBC) [Ratio] 12.8 % Normal 11.6-14.6 [facility] Comment on above: Performed By: #### L 500.2500, L501.2300, L100.0500 ####[facility] [address] [place], [address] Hematocrit (Bld) [Volume fraction] 35.2 % Low 40-54 [facility] Comment on above: Performed By: #### L 500.2500, L501.2300, L100.0500 ####[facility] [address] [place], [address] Hemoglobin (Bld) [Mass/Vol] 11.9 g/dL Low 13.0-16.5 [facility] Comment on above: Performed By: #### L 500.2500, L501.2300, L100.0500 ####[facility] [address] [place], [address] MCH (RBC) [Entitic mass] 30.2 pg Normal 27.0-32.0 [facility] Comment on above: Performed By: #### L 500.2500, L501.2300, L100.0500 ####[facility] [address] [place], [address] MCHC (RBC) [Mass/Vol] 33.8 g/dL Normal 32-[address] [facility] Comment on above: Performed By: #### L 500.2500, L501.2300, L100.0500 ####[facility] [address] [place], [address] MCV (RBC) [Entitic vol] 89.3 fL Normal 80-94 [facility] Comment on above: Performed By: #### L 500.2500, L501.2300, L100.0500 ####[facility] [address] [place], [address] Platelet mean volume (Bld) [Entitic vol] 8.6 fL Normal 6.2-12.0 [facility] Comment on above: Performed By: #### L 500.2500, L501.2300, L100.0500 ####[facility] [address] [place], [address] Platelets (Bld) [#/Vol] 149 10*3/uL Low 150-450 [facility] Comment on above: Performed By: #### L 500.2500, L501.2300, L100.0500 ####[facility] [address] [place], [address] RBC (Bld) [#/Vol] 3.94 10*6/uL Low 4.6-6.2 [facility] Comment on above: Performed By: #### L 500.2500, L501.2300, L100.0500 ####[facility] [address] [place], [address] RDW SD 41.9 fl Normal 35.1-43.9 [facility] Comment on above: Performed By: #### L 500.2500, L501.2300, L100.0500 ####[facility] [address] [place], [address] WBC (Bld) [#/Vol] 8.4 10*3/uL Normal 4.4-11.0 [facility] Comment on above: Performed By: #### L 500.2500, L501.2300, L100.0500 ####[facility] [address] [place], [address] Electrocardiogram reportOrde red By: David Granados on 05-01-2024 EKG study [facility] [address] [place] [address] 12 Lead EKG 04/30/24 1706 MR#: [id number] Acct: [id number] Name: YAS ROSA Rep #:[id number] : 1940 83 From: David Granados MD [...] was found Confirmed by DAVID GRANADOS MD ([id number]), loan expeditor LEANDER BRAY ([id number]) on 59:48:33 AM Referred By: Corazon Wright Confirmed By: DAVID GRANADOS MD 05/01/24 0948 Date _ David Granados MD CC: Dr. Kwabena Menjivar MD; Dr. Corazon Wright, DO ~ Signed [facility] Work Phone: Phosphoruson 05-01-2024 Phosphate [Mass/Vol] 3.3 mg/dL Normal 2.7-4.5 [facility] Comment on above: Performed By: #### L 500.2500, L501.2300, L100.0500 ####[facility] [address] [place], [address] Serum phosphorus measurement Ordered By: Corazon Wright on 05-01-2024 Phosphorus Level 3.3 mg/dL 2.7-4.5 [facility] 12 Lead EKGon 04-30-2024 12 Lead EKG Normal [facility] CBC-Complete Blood Cnt No Di ffon 04-29-2024 HCT Normal 40-54 [facility] Comment on above: Result Comment: Canc elled via OM: MD Ordered Performed By: #### L 100.0500 ####[facility] [address] [place], [address] HGB Normal 13.0-16.5 [facility] Comment on above: Result Comment: Canc elled via OM: MD Ordered Performed By: #### L 100.0500 ####[facility] [address] [place], [address] MCH Normal 27.0-32.0 [facility] Comment on above: Result Comment: Canc elled via OM: MD Ordered Performed By: #### L 100.0500 ####[facility] [address] [place], [address] MCHC Normal 32-36 [facility] Comment on above: Result Comment: Canc elled via OM: MD Ordered Performed By: #### L 100.0500 ####[facility] [address] [place], [address] MCV Normal 80-94 [facility] Comment on above: Result Comment: Canc elled via OM: MD Ordered Performed By: #### L 100.0500 ####[facility] [address] [place], [address] PLT Normal 150-450 [facility] Comment on above: Result Comment: Canc elled via OM: MD Ordered Performed By: #### L 100.0500 ####[facility] [address] [place], [address] RBC Normal 4.6-6.2 [facility] Comment on above: Result Comment: Canc elled via OM: MD Ordered Performed By: #### L 100.0500 ####[facility] [address] [place], [address] RDW CV Normal 11.6-14.6 [facility] Comment on above: Result Comment: Canc elled via OM: MD Ordered Performed By: #### L 100.0500 ####[facility] [address] [place], [address] RDW SD Normal 35.1-43.9 [facility] Comment on above: Result Comment: Canc elled via OM: MD Ordered Performed By: #### L 100.0500 ####[facility] [address] [place], [address] WBC Normal 4.4-11.0 [facility] Comment on above: Result Comment: Canc elled via OM: MD Ordered Performed By: #### L 100.0500 ####[facility] [address] [place], [address] L509.6001on 04-29-2024 CORTISOL 25.80 ug/dL High 6.02-18.40 [facility] Comment on above: Order Comment: Must be drawn 30-60 min AFTER cosyntropin admin. Performed By: #### L 509.6001 ####[facility] [address] [place], [address] CORTISOL 11.10 ug/dL Normal 6.02-18.40 [facility] Comment on above: Order Comment: must be performed shortly BEFORE cosyntropin admin Performed By: #### L 509.6001 ####[facility] [address] [place], [address] Lower GI hemoglobin IA Ql (S tl)Ordered By: Corazon Wright on 04-29-2024 Stool Occult Blood (JERMAINE) [facility] No Panel InformationOrdered By: Corazon Wright on 04-29-2024 Cortisol AM Sample 25.80 ug/dL High 6.02-18.40 [facility] 25.80 ug/dL High 6.02-18.40 [facility] Stool Occult Blood iFOBon STOB Negative Normal [facility] Comment on above: Performed By: #### M 100.7900 ####[facility] [address] [place], [address] Stool gastrointestinal hemog lobin detection by immunologic methodOrdered By: Corazon Wright on 04-29-2024 Lower GI hemoglobin IA Ql (Stl) [facility] Urine Cultureon 04-29-2024 URC Culture exhibits no growth. Normal [facility] Comment on above: Performed By: #### M 100.2200 ####[facility] [address] [place], [address] Basic Metabolic Profile (BMP )on 04-28-2024 BUN/CRE 30.3 RATIO High 10-20 [facility] Comment on above: Performed By: #### L 501.5200, L501.2300, L100.0500, L500.2500 ####[facility] [address] [place], [address] Calcium [Mass/Vol] 8.0 mg/dL Normal 7.6-11.0 [facility] Comment on above: Performed By: #### L 501.5200, L501.2300, L100.0500, L500.2500 ####[facility] [address] [place], [address] Chloride [Moles/Vol] 106 mmol/L Normal 98-108 [facility] Comment on above: Performed By: #### L 501.5200, L501.2300, L100.0500, L500.2500 ####[facility] [address] [place], [address] CO2 [Moles/Vol] 22.8 mmol/L Normal 21.0-32.0 [facility] Comment on above: Performed By: #### L 501.5200, L501.2300, L100.0500, L500.2500 ####[facility] [address] [place], [address] Creatinine [Mass/Vol] 0.89 mg/dL Normal 0.70-1.[address] [facility] Comment on above: Performed By: #### L 501.5200, L501.2300, L100.0500, L500.2500 ####[facility] [address] [place], [address] ECRCL 61.91 ml/min Normal 50-250 [facility] Comment on above: Performed By: #### L 501.5200, L501.2300, L100.0500, L500.2500 ####[facility] [address] [place], [address] GAP 8 Normal 5-15 [facility] Comment on above: Performed By: #### L 501.5200, L501.2300, L100.0500, L500.2500 ####[facility] [address] [place], [address] GFR/1.73 sq M.predicted among non-blacks MDRD (S/P/Bld) [Vol rate/Area] 86 mL/min/{1.73_m2} Normal >60 [facility] Comment on above: Result Comment: mL/m in/1.73m2 CKD-EPI Creatinine Equation (2020) Performed By: #### L 501.5200, L501.2300, L100.0500, L500.2500 ####[facility] [address] [place], [address] Glucose [Mass/Vol] 91 mg/dL Normal 70-99 [facility] Comment on above: Performed By: #### L 501.5200, L501.2300, L100.0500, L500.2500 ####[facility] [address] [place], [address] Potassium [Moles/Vol] 4.6 mmol/L Normal 3.3-5.[address] [facility] Comment on above: Performed By: #### L 501.5200, L501.2300, L100.0500, L500.2500 ####[facility] [address] [place], [address] Sodium [Moles/Vol] 137 mmol/L Normal 133-145 [facility] Comment on above: Performed By: #### L 501.5200, L501.2300, L100.0500, L500.2500 ####[facility] [address] [place], [address] Urea nitrogen [Mass/Vol] 27 mg/dL High 4-19 [facility] Comment on above: Performed By: #### L 501.5200, L501.2300, L100.0500, L500.2500 ####[facility] [address] [place], [address] BUN Normal 4-19 [facility] Comment on above: Result Comment: Canc elled via OM: Order cancelled - Patient discharged Performed By: #### L 500.2500 ####[facility] [address] [place], [address] BUN/CRE Normal 10-20 [facility] Comment on above: Result Comment: Canc elled via OM: Order cancelled - Patient discharged Performed By: #### L 500.2500 ####[facility] [address] [place], [address] Calcium Normal 7.6-11.0 [facility] Comment on above: Result Comment: Canc elled via OM: Order cancelled - Patient discharged Performed By: #### L 500.2500 ####[facility] [address] [place], [address] CL Normal 98-108 [facility] Comment on above: Result Comment: Canc elled via OM: Order cancelled - Patient discharged Performed By: #### L 500.2500 ####[facility] [address] [place], [address] CO2 Normal 21.0-32.0 [facility] Comment on above: Result Comment: Canc elled via OM: Order cancelled - Patient discharged Performed By: #### L 500.2500 ####[facility] [address] [place], [address] CREAT,SERUM Normal 0.70-1.20 [facility] Comment on above: Result Comment: Canc elled via OM: Order cancelled - Patient discharged Performed By: #### L 500.2500 ####[facility] [address] [place], [address] eGFR Normal >60 [facility] Comment on above: Result Comment: Canc elled via OM: Order cancelled - Patient discharged Performed By: #### L 500.2500 ####[facility] [address] [place], [address] GAP Normal 5-15 [facility] Comment on above: Result Comment: Canc elled via OM: Order cancelled - Patient discharged Performed By: #### L 500.2500 ####[facility] [address] [place], [address] GLU Normal 70-99 [facility] Comment on above: Result Comment: Canc elled via OM: Order cancelled - Patient discharged Performed By: #### L 500.2500 ####[facility] [address] [place], [address] Potassium Normal 3.3-5.1 [facility] Comment on above: Result Comment: Canc elled via OM: Order cancelled - Patient discharged Performed By: #### L 500.2500 ####[facility] [address] [place], [address] Basic Metabolic Profile (BMP) Normal 133-145 [facility] Comment on above: Result Comment: Canc elled via OM: Order cancelled - Patient discharged Performed By: #### L 500.2500 ####[facility] [address] [place], [address] Bilirubin directOrdered By: Corazon Wright on 04-28-2024 Bilirubin.direct [Mass/Vol] 0.18 mg/dL 0.00-0.30 [facility] Bilirubin, totalOrdered By: Corazon Romogavin on 04-28-2024 Bilirubin [Mass/Vol] 0.37 mg/dL 0.00-1.30 [facility] CBC W/Diff, Automatedon 04-09 Absolute Neut Normal 2.0-7.7 [facility] Comment on above: Result Comment: Canc elled via OM: Order cancelled - Patient discharged Performed By: #### L 100.0100 ####[facility] [address] [facility] [address] HCT Normal 40-54 [facility] Comment on above: Result Comment: Canc elled via OM: Order cancelled - Patient discharged Performed By: #### L 100.0100 ####[facility] [address] [place], [address] HGB Normal 13.0-16.5 [facility] Comment on above: Result Comment: Canc elled via OM: Order cancelled - Patient discharged Performed By: #### L 100.0100 ####[facility] [address] [place], [address] MCH Normal 27.0-32.0 [facility] Comment on above: Result Comment: Canc elled via OM: Order cancelled - Patient discharged Performed By: #### L 100.0100 ####[facility] [address] [place], [address] MCHC Normal 32-36 [facility] Comment on above: Result Comment: Canc elled via OM: Order cancelled - Patient discharged Performed By: #### L 100.0100 ####[facility] [address] [place], [address] MCV Normal 80-94 [facility] Comment on above: Result Comment: Canc elled via OM: Order cancelled - Patient discharged Performed By: #### L 100.0100 ####[facility] [address] [place], [address] NEUT% Normal 47-70 [facility] Comment on above: Result Comment: Canc elled via OM: Order cancelled - Patient discharged Performed By: #### L 100.0100 ####[facility] [address] [place], [address] PLT Normal 150-450 [facility] Comment on above: Result Comment: Canc elled via OM: Order cancelled - Patient discharged Performed By: #### L 100.0100 ####[facility] [address] [place], [address] RBC Normal 4.6-6.2 [facility] Comment on above: Result Comment: Canc elled via OM: Order cancelled - Patient discharged Performed By: #### L 100.0100 ####[facility] [address] [place], [address] RDW CV Normal 11.6-14.6 [facility] Comment on above: Result Comment: Canc elled via OM: Order cancelled - Patient discharged Performed By: #### L 100.0100 ####[facility] [address] [place], [address] RDW SD Normal 35.1-43.9 [facility] Comment on above: Result Comment: Canc elled via OM: Order cancelled - Patient discharged Performed By: #### L 100.0100 ####[facility] [address] [place], [address] WBC Normal 4.4-11.0 [facility] Comment on above: Result Comment: Canc elled via OM: Order cancelled - Patient discharged Performed By: #### L 100.0100 ####[facility] [address] [place], [address] CBC-Complete Blood Cnt No Di ffon 04-28-2024 Erythrocyte distribution width (RBC) [Ratio] 12.7 % Normal 11.6-14.6 [facility] Comment on above: Performed By: #### L 501.5200, L501.2300, L100.0500, L500.2500 ####[facility] [address] [place], [address] Hematocrit (Bld) [Volume fraction] 35.3 % Low 40-54 [facility] Comment on above: Performed By: #### L 501.5200, L501.2300, L100.0500, L500.2500 ####[facility] [address] [place], [address] Hemoglobin (Bld) [Mass/Vol] 12.4 g/dL Low 13.0-16.5 [facility] Comment on above: Performed By: #### L 501.5200, L501.2300, L100.0500, L500.2500 ####[facility] [address] [place], [address] MCH (RBC) [Entitic mass] 30.6 pg Normal 27.0-32.0 [facility] Comment on above: Performed By: #### L 501.5200, L501.2300, L100.0500, L500.2500 ####[facility] [address] [place], [address] MCHC (RBC) [Mass/Vol] 35.1 g/dL Normal 32-[address] [facility] Comment on above: Performed By: #### L 501.5200, L501.2300, L100.0500, L500.2500 ####[facility] [address] [place], [address] MCV (RBC) [Entitic vol] 87.2 fL Normal 80-94 [facility] Comment on above: Performed By: #### L 501.5200, L501.2300, L100.0500, L500.2500 ####[facility] [address] [place], [address] Platelet mean volume (Bld) [Entitic vol] 8.8 fL Normal 6.2-12.0 [facility] Comment on above: Performed By: #### L 501.5200, L501.2300, L100.0500, L500.2500 ####[facility] [address] [place], [address] Platelets (Bld) [#/Vol] 164 10*3/uL Normal 150-450 [facility] Comment on above: Performed By: #### L 501.5200, L501.2300, L100.0500, L500.2500 ####[facility] [address] [place], [address] RBC (Bld) [#/Vol] 4.05 10*6/uL Low 4.6-6.2 [facility] Comment on above: Performed By: #### L 501.5200, L501.2300, L100.0500, L500.2500 ####[facility] [address] [place], [address] RDW SD 40.3 fl Normal 35.1-43.9 [facility] Comment on above: Performed By: #### L 501.5200, L501.2300, L100.0500, L500.2500 ####[facility] [address] [place], [address] WBC (Bld) [#/Vol] 11.3 10*3/uL High 4.4-11.0 [facility] Comment on above: Performed By: #### L 501.5200, L501.2300, L100.0500, L500.2500 ####[facility] [address] [place], [address] L509.6001on 04-28-2024 CORTISOL 3.92 ug/dL Low 6.02-18.40 [facility] Comment on above: Order Comment: Cecelia snyder use the blood drawn this AM Performed By: #### L 509.6001 ####[facility] [address] [place], [address] Laboratory - Chemistry and C hemistry - challengeOrdered By: Corazon Wright on 04-28-2024 AST [Catalytic activity/Vol] 25 U/L <38 [facility] Liver Profileon 04-28-2024 Albumin [Mass/Vol] 3.1 g/dL Low 3.4-4.8 [facility] Comment on above: Performed By: #### L 501.9520, L500.3400 ####[facility] [address] [place], [address] ALK PHOS 70 U/L Normal 40-129 [facility] Comment on above: Performed By: #### L 501.9520, L500.3400 ####[facility] [address] [place], [address] ALT [Catalytic activity/Vol] 44 U/L Normal <=46 [facility] Comment on above: Performed By: #### L 501.9520, L500.3400 ####[facility] [address] [place], [address] AST [Catalytic activity/Vol] 25 U/L Normal <=37 [facility] Comment on above: Performed By: #### L 501.9520, L500.3400 ####[facility] [address] [place], [address] Bilirubin [Mass/Vol] 0.37 mg/dL Normal 0.00-1.30 [facility] Comment on above: Performed By: #### L 501.9520, L500.3400 ####[facility] [address] [place], [address] Bilirubin.direct [Mass/Vol] 0.18 mg/dL Normal 0.00-0.30 [facility] Comment on above: Performed By: #### L 501.9520, L500.3400 ####[facility] [address] [place], [address] Globulin (S) [Mass/Vol] 2.0 g/dL Low 2.2-4.2 [facility] Comment on above: Performed By: #### L 501.9520, L500.3400 ####[facility] [address] [place], [address] T PROT 5.1 g/dL Low 5.9-8.4 [facility] Comment on above: Performed By: #### L 501.9520, L500.3400 ####[facility] [address] [place], [address] Magnesiumon 04-28-2024 Magnesium [Mass/Vol] 2.6 mg/dL High 1.5-2.2 [facility] Comment on above: Performed By: #### L 501.5200, L501.2300, L100.0500, L500.2500 ####[facility] [address] [place], [address] Magnesium (Unsp spec) [Mass/ Vol]Ordered By: Corazon Wright on 04-28-2024 Magnesium [Mass/Vol] 2.6 mg/dL High 1.5-2.2 [facility] Magnesium measurement (mass/ volume)Ordered By: Corazon Wright on 04-28-2024 Magnesium (Unsp spec) [Mass/Vol] 2.6 mg/dL High 1.5-2.2 [facility] No Panel InformationOrdered By: Corazon Wright on 04-28-2024 25 U/L <38 [facility] PSA, total screeningOrdered By: Corazon Romogavin on 04-28-2024 Prostate Specific Antigen Screen 0.33 ng/mL 0.02-4.00 [facility] Comment on above: This test was perfor med using the [employer] tPSA method. Measured values of a patient sample can vary depending on the testing procedure used. PSA values determined on patient samples by different testing procedures cannot be used interchangeably. If there is a change in PSA assays while monitoring therapy, sequential testing should be performed to confirm baseline values. PSA,Total - Annual Screenon 04-28-2024 PSA,TOT SCREEN 0.33 ng/mL Normal 0.02-4.00 [facility] Comment on above: Result Comment: This test was performed using the [employer] tPSAmethod. Measured values of a patient??sample can varydepending on the testing procedure used. PSA valuesdetermined on patient samples by different testingprocedures cannot be used interchangeably. If there is achange in PSA assays while monitoring therapy, sequentialtesting should be performed to confirm baseline values. Performed By: #### L 501.9910 ####[facility] [address] [place], [place], [id number] Phosphoruson 04-28-2024 Phosphate [Mass/Vol] 2.4 mg/dL Low 2.7-4.5 [facility] Comment on above: Performed By: #### L 501.5200, L501.2300, L100.0500, L500.2500 ####[facility] [address] [place], [address] Serum globulin measurementOr dered By: Corazon Kyle on 04-28-2024 Globulin (S) [Mass/Vol] 2.0 g/dL Low 2.2-4.2 [facility] Serum or plasma alanine olmedo otransferase (ALT) measurementOrdered By: Corazon Wright on 04-28-2024 ALT [Catalytic activity/Vol] 44 U/L <47 [facility] Serum or plasma albumin ratna urement (mass/volume)Ordered By: Corazon Wright on 04-28-2024 Albumin [Mass/Vol] 3.1 g/dL Low 3.4-4.8 [facility] Serum or plasma alkaline garry sphatase measurementOrdered By: Corazon Wright on 04-28-2024 ALP [Catalytic activity/Vol] 70 U/L 40-129 [facility] TSH DL <= 0.005 mIU/L QnOrde red By: Corazon Wright on 04-28-2024 Thyroid Stimulating Hormone (TSH) 1.030 uIU/mL 0.300-4.200 [facility] TSH Qn 1.030 uIU/mL 0.300-4.200 [facility] Thyroid Stim Hormone (TSH)on 04-28-2024 TSH 1.030 uIU/mL Normal 0.300-4.200 [facility] Comment on above: Performed By: #### L 501.9520, L500.3400 ####[facility] [address] [facility] [address] [place], [place], [id number] Total proteinOrdered By: Aura Wright on 04-28-2024 Protein [Mass/Vol] 5.1 g/dL Low 5.9-8.4 [facility] Urinalysis, Completeon 04-28 RBC 0 SEEN Normal 0-5 [facility] Comment on above: Order Comment: YOSVANY TER SPECIMEN Performed By: #### L 400.0001 ####[facility] [address] [place], [place], [id number] Absolute lymphocyte countOrd ered By: Harish Baxter on 04-27-2024 Lymphocytes Auto (Unsp spec) [#/Vol] 1.59 10*3/uL 0.83-4.51 [facility] Absolute neutrophil countOrd ered By: Harish Baxter on 04-27-2024 Neutrophils (Bld) [#/Vol] 8.8 10*3/uL High 2.0-7.7 [facility] Anion gap in Serum or Plasma Ordered By: Harish Baxter on 04-27-2024 Anion gap [Moles/Vol] 12 mmol/L 5-[address] [facility] Automated lymphocyte count a s percentage of total leukocytesOrdered By: Harish Baxter on 04-27-2024 Lymphocytes/100 WBC Auto (Unsp spec) 14.3 % Low 19-41 [facility] BUN/creatinine ratioOrdered By: Harish Baxter on 04-27-2024 Urea nitrogen/Creatinine [Mass ratio] 21.3 mg/mg High 10-20 [facility] Basic Metabolic Profile (BMP )on 04-27-2024 BUN/CRE 21.3 RATIO High 10- [facility] Comment on above: Performed By: #### L 500.2500 ####[facility] [address] [place], [address] Calcium [Mass/Vol] 8.2 mg/dL Normal 7.6-11.0 [facility] Comment on above: Performed By: #### L 500.2500 ####[facility] [address] [place], [address] Chloride [Moles/Vol] 103 mmol/L Normal 98-108 [facility] Comment on above: Performed By: #### L 500.2500 ####[facility] [address] [place], [address] CO2 [Moles/Vol] 20.1 mmol/L Low 21.0-32.0 [facility] Comment on above: Performed By: #### L 500.2500 ####[facility] [address] [place], [address] Creatinine [Mass/Vol] 0.91 mg/dL Normal 0.70-1.[address] [facility] Comment on above: Performed By: #### L 500.2500 ####[facility] [address] [place], [address] ECRCL 60.55 ml/min Normal 50-250 [facility] Comment on above: Performed By: #### L 500.2500 ####[facility] [address] [place], [address] GAP 12 Normal 5-15 [facility] Comment on above: Performed By: #### L 500.2500 ####[facility] [address] [place], [address] GFR/1.73 sq M.predicted among non-blacks MDRD (S/P/Bld) [Vol rate/Area] 84 mL/min/{1.73_m2} Normal >60 [facility] Comment on above: Result Comment: mL/m in/1.73m2 CKD-EPI Creatinine Equation (2020) Performed By: #### L 500.2500 ####[facility] [address] [place], [address] Glucose [Mass/Vol] 123 mg/dL High 70-99 [facility] Comment on above: Performed By: #### L 500.2500 ####[facility] [address] [place], [address] Potassium [Moles/Vol] 4.6 mmol/L Normal 3.3-5.[address] [facility] Comment on above: Performed By: #### L 500.2500 ####[facility] [address] [place], [address] Sodium [Moles/Vol] 136 mmol/L Normal 133-145 [facility] Comment on above: Performed By: #### L 500.2500 ####[facility] [address] [place], [address] Urea nitrogen [Mass/Vol] 19 mg/dL Normal 4-19 [facility] Comment on above: Performed By: #### L 500.2500 ####[facility] [address] [place], [address] BUN Normal 4-19 [facility] Comment on above: Result Comment: Daniel hamm via OM: Ordered Performed By: #### L 100.0500, L500.2500 ####[facility] [address] [place], [address] BUN/CRE Normal 10-20 [facility] Comment on above: Result Comment: Canc elled via OM: MD Ordered Performed By: #### L 100.0500, L500.2500 ####[facility] [address] [place], [address] Calcium Normal 7.6-11.0 [facility] Comment on above: Result Comment: Canc elled via OM: MD Ordered Performed By: #### L 100.0500, L500.2500 ####[facility] [address] [place], [address] CL Normal 98-108 [facility] Comment on above: Result Comment: Canc elled via OM: MD Ordered Performed By: #### L 100.0500, L500.2500 ####[facility] [address] [place], [address] CO2 Normal 21.0-32.0 [facility] Comment on above: Result Comment: Canc elled via OM: MD Ordered Performed By: #### L 100.0500, L500.2500 ####[facility] [address] [place], [address] CREAT,SERUM Normal 0.70-1.20 [facility] Comment on above: Result Comment: Canc elled via OM: MD Ordered Performed By: #### L 100.0500, L500.2500 ####[facility] [address] [place], [address] eGFR Normal >60 [facility] Comment on above: Result Comment: Canc elled via OM: MD Ordered Performed By: #### L 100.0500, L500.2500 ####[facility] [address] [place], [address] GAP Normal 5-15 [facility] Comment on above: Result Comment: Canc elled via OM: MD Ordered Performed By: #### L 100.0500, L500.2500 ####[facility] [address] [place], [address] GLU Normal 70-99 [facility] Comment on above: Result Comment: Canc elled via OM: MD Ordered Performed By: #### L 100.0500, L500.2500 ####[facility] [address] [place], [address] Potassium Normal 3.3-5.1 [facility] Comment on above: Result Comment: Canc elled via OM: MD Ordered Performed By: #### L 100.0500, L500.2500 ####[facility] [address] [place], [address] Basic Metabolic Profile (BMP) Normal 133-145 [facility] Comment on above: Result Comment: Canc elled via OM: MD Ordered Performed By: #### L 100.0500, L500.2500 ####[facility] [address] [place], [address] Basophil percentageOrdered B y: Harish Sahil on 04-27-2024 Basophils/100 WBC (Bld) 0.2 % 0-1 [facility] CBC W/Diff, Automatedon 04-09 0-2024 Absolute Lymph 1.59 X10 3/uL Normal 0.83-4.51 [facility] Comment on above: Performed By: #### L 100.0100 ####[facility] [address] [place], [address] Absolute Neut 8.8 X10 3/uL High 2.0-7.7 [facility] Comment on above: Performed By: #### L 100.0100 ####[facility] [address] [place], [address] Basophils/100 WBC (Bld) 0.2 % Normal 0-1 [facility] Comment on above: Performed By: #### L 100.0100 ####[facility] [address] [place], [address] Eosinophils/100 WBC (Bld) 0.0 % Normal 0-5 [facility] Comment on above: Performed By: #### L 100.0100 ####[facility] [address] [place], [address] Erythrocyte distribution width (RBC) [Ratio] 12.3 % Normal 11.6-14.6 [facility] Comment on above: Performed By: #### L 100.0100 ####[facility] [address] [place], [address] Hematocrit (Bld) [Volume fraction] 37.9 % Low 40-54 [facility] Comment on above: Performed By: #### L 100.0100 ####[facility] [address] [place], [address] Hemoglobin (Bld) [Mass/Vol] 13.0 g/dL Normal 13.0-16.5 [facility] Comment on above: Performed By: #### L 100.0100 ####[facility] [address] [place], [address] IG% 0.900 Normal 0.0-0.9 [facility] Comment on above: Result Comment: IG% - Immature Granulocytes (promyelocytes, myelocytes andmetamyelocytes) > 1% indicates that a LEFT SHIFT is Present. Performed By: #### L 100.0100 ####[facility] [address] [place], [address] Lymphocytes/100 WBC (Bld) 14.3 % Low 19-41 [facility] Comment on above: Performed By: #### L 100.0100 ####[facility] [address] [place], [address] MCH (RBC) [Entitic mass] 30.0 pg Normal 27.0-32.0 [facility] Comment on above: Performed By: #### L 100.0100 ####[facility] [address] [place], [address] MCHC (RBC) [Mass/Vol] 34.3 g/dL Normal 32-[address] [facility] Comment on above: Performed By: #### L 100.0100 ####[facility] [address] [place], [address] MCV (RBC) [Entitic vol] 87.5 fL Normal 80-94 [facility] Comment on above: Performed By: #### L 100.0100 ####[facility] [address] [place], [address] Monocytes/100 WBC (Bld) 5.8 % Normal 0-10 [facility] Comment on above: Performed By: #### L 100.0100 ####[facility] [address] [place], [address] Neutrophils/100 WBC (Bld) 78.8 % High 47-70 [facility] Comment on above: Performed By: #### L 100.0100 ####[facility] [address] [place], [address] Nucleated RBC (Bld) [#/Vol] 0 10*3/uL Normal 0-5 [facility] Comment on above: Performed By: #### L 100.0100 ####[facility] [address] [place], [address] Platelet mean volume (Bld) [Entitic vol] 8.6 fL Normal 6.2-12.0 [facility] Comment on above: Performed By: #### L 100.0100 ####[facility] [address] [place], [address] Platelets (Bld) [#/Vol] 178 10*3/uL Normal 150-450 [facility] Comment on above: Performed By: #### L 100.0100 ####[facility] [address] [place], [address] RBC (Bld) [#/Vol] 4.33 10*6/uL Low 4.6-6.2 [facility] Comment on above: Performed By: #### L 100.0100 ####[facility] [address] [place], [address] RDW SD 39.6 fl Normal 35.1-43.9 [facility] Comment on above: Performed By: #### L 100.0100 ####[facility] [address] [place], [address] WBC (Bld) [#/Vol] 11.1 10*3/uL High 4.4-11.0 [facility] Comment on above: Performed By: #### L 100.0100 ####[facility] [address] [place], [address] CBC-Complete Blood Cnt No Di ffon 04-27-2024 HCT Normal 40-54 [facility] Comment on above: Result Comment: Canc elled via OM: MD Ordered Performed By: #### L 100.0500, L500.2500 ####[facility] [address] [place], [address] HGB Normal 13.0-16.5 [facility] Comment on above: Result Comment: Canc elled via OM: MD Ordered Performed By: #### L 100.0500, L500.2500 ####[facility] [address] [place], [address] MCH Normal 27.0-32.0 [facility] Comment on above: Result Comment: Canc elled via OM: MD Ordered Performed By: #### L 100.0500, L500.2500 ####[facility] [address] [place], [address] MCHC Normal 32-36 [facility] Comment on above: Result Comment: Canc elled via OM: MD Ordered Performed By: #### L 100.0500, L500.2500 ####[facility] [address] [place], [address] MCV Normal 80-94 [facility] Comment on above: Result Comment: Canc elled via OM: MD Ordered Performed By: #### L 100.0500, L500.2500 ####[facility] [address] [place], [address] PLT Normal 150-450 [facility] Comment on above: Result Comment: Canc elled via OM: MD Ordered Performed By: #### L 100.0500, L500.2500 ####[facility] [address] [place], [address] RBC Normal 4.6-6.2 [facility] Comment on above: Result Comment: Canc elled via OM: MD Ordered Performed By: #### L 100.0500, L500.2500 ####[facility] [address] [place], [address] RDW CV Normal 11.6-14.6 [facility] Comment on above: Result Comment: Canc elled via OM: MD Ordered Performed By: #### L 100.0500, L500.2500 ####[facility] [address] [place], [address] RDW SD Normal 35.1-43.9 [facility] Comment on above: Result Comment: Canc elled via OM: MD Ordered Performed By: #### L 100.0500, L500.2500 ####[facility] [address] [place], [address] WBC Normal 4.4-11.0 [facility] Comment on above: Result Comment: Canc elled via OM: MD Ordered Performed By: #### L 100.0500, L500.2500 ####[facility] [address] [place], [address] Carbon dioxide, total [Moles /volume] in Central venous bloodOrdered By: Harish Baxter on 04-27-2024 CO2 [Moles/Vol] 20.1 mmol/L Low 21.0-32.0 [facility] Cerv Spine 2 or 3 Viewson Cerv Spine 2 or 3 Views Normal [facility] Chloride assayOrdered By: Carmela Baxter on 04-27-2024 Chloride [Moles/Vol] 103 mmol/L 98-108 [facility] Discharge Instructionon 04-09 Discharge Instruction Normal [facility] Eosinophil percentageOrdered By: Harish Baxter on 04-27-2024 Eosinophils/100 WBC (Bld) 0.0 % 0-5 [facility] Erythrocyte distribution wid th ratioOrdered By: Harish Baxter on 04-27-2024 Erythrocyte distribution width (RBC) [Ratio] 12.3 % 11.6-14.6 [facility] Erythrocyte distribution wid th standard deviationOrdered By: Harish Baxter on 04-27-2024 Erythrocyte distribution width (RBC) [Entitic vol] 39.6 fL 35.1-43.9 [facility] Erythrocyte distribution width (RBC) [Ratio] 39.6 fl 35.1-43.9 [facility] Estimation of creatinine yahir aranceOrdered By: Harish Baxter on 04-27-2024 Estimated Creatinine Clearance Calc 60.55 ml/min 50-250 [facility] GFR/1.73 sq M.predicted darrick g non-blacks MDRD (S/P/Bld) [Vol rate/Area]Ordered By: Harish Baxter on 04-27-2024 Estimated GFR (MDRD) Non-Af Amer 84 >60 [facility] Comment on above: mL/min/1.73m2 CKD-EP I Creatinine Equation (2020) Glomerular filtration rate ( GFR) estimation/1.73 sq m using serum, plasma, or whole bOrdered By: Harish Baxter on 04-27-2024 GFR/1.73 sq M.predicted among non-blacks MDRD (S/P/Bld) [Vol rate/Area] 84 mL/min/{1.73_m2} >60 [facility] Hematocrit Auto (Bld) [Volum e fraction]Ordered By: Harish Baxter on 04-27-2024 Hematocrit (Bld) [Volume fraction] 37.9 % Low 40-54 [facility] Hemoglobin measurementOrdere d By: Harish Baxter on 04-27-2024 Hemoglobin (Bld) [Mass/Vol] 13.0 g/dL 13.0-16.5 [facility] Immature granulocytes/100 WB C Auto (Bld)Ordered By: Harish Baxter on 04-27-2024 Immature granulocytes/100 WBC (Bld) 0.900 % 0.0-0.9 [facility] Comment on above: IG% - Immature Granu locytes (promyelocytes, myelocytes and metamyelocytes) > 1% indicates that a LEFT SHIFT is Present. Lymphocytes Auto (Unsp spec) [#/Vol]Ordered By: Harish Baxter on 04-27-2024 Lymphocytes (Bld) [#/Vol] 1.59 10*3/uL 0.83-4.51 [facility] Lymphocytes/100 WBC Auto (Un sp spec)Ordered By: Harish Baxter on 04-27-2024 Lymphocytes/100 WBC (Bld) 14.3 % Low 19-41 [facility] MCV (mean corpuscular volume ) determinationOrdered By: Harish Baxter on 04-27-2024 MCV (RBC) [Entitic vol] 87.5 fL 80-94 [facility] Mean corpuscular hemoglobin (MCH) determinationOrdered By: Harish Baxter on 04-27-2024 MCH (RBC) [Entitic mass] 30.0 pg 27.0-32.0 [facility] Mean corpuscular hemoglobin concentration (MCHC) determinationOrdered By: Harish Baxter on 04-27-2024 MCHC (RBC) [Mass/Vol] 34.3 g/dL 32-[address] [facility] Mean platelet volume determi nationOrdered By: Harish Baxter on 04-27-2024 Platelet mean volume (Bld) [Entitic vol] 8.6 fL 6.2-12.0 [facility] Monocyte percentageOrdered B y: Harish Baxter on 04-27-2024 Monocytes/100 WBC (Bld) 5.8 % 0-10 [facility] Neutrophil percentageOrdered By: Harish Baxter on 04-27-2024 Neutrophils/100 WBC (Bld) 78.8 % High 47-70 [facility] Nucleated red blood cell per centageOrdered By: Harish Baxter on 04-27-2024 Nucleated RBC/100 WBC (Bld) [Ratio] 0 % 0-5 [facility] Platelet countOrdered By: Carmela Baxter on 04-27-2024 Platelets (Bld) [#/Vol] 178 10*3/uL 150-450 [facility] Potassium (Unsp spec) [Mass/ Vol]Ordered By: Harish Baxter on 04-27-2024 Potassium [Moles/Vol] 4.6 mmol/L 3.3-5.[address] [facility] Potassium measurement (mass/ volume)Ordered By: Harish Baxter on 04-27-2024 Potassium (Unsp spec) [Mass/Vol] 4.6 mmol/L 3.3-5.1 [facility] RBC Auto (Bld) [#/Vol]Ordere d By: Harish Baxter on 04-27-2024 RBC (Bld) [#/Vol] 4.33 10*6/uL Low 4.6-6.2 [facility] Serum creatinine measurement (mass/volume)Ordered By: Harish Baxter on 04-27-2024 Creatinine [Mass/Vol] 0.91 mg/dL 0.70-1.[address] [facility] Serum glucose measurement (m ass/volume)Ordered By: Harish Baxter on 04-27-2024 Glucose [Mass/Vol] 123 mg/dL High 70-99 [facility] Serum or plasma calcium ratna urement (mass/volume)Ordered By: Harish Baxter on 04-27-2024 Calcium [Mass/Vol] 8.2 mg/dL 7.6-11.0 [facility] Serum or plasma urea nitroge n measurement (mass/volume)Ordered By: Harish Baxter on 04-27-2024 Urea nitrogen [Mass/Vol] 19 mg/dL 4-19 [facility] Sodium levelOrdered By: Jade Baxter on 04-27-2024 Sodium [Moles/Vol] 136 mmol/L 133-145 [facility] Urine cultureOrdered By: Aura Wright on 04-27-2024 Bacteria identified Cx Nom (U) Culture exhibits no growth. [facility] White blood cell (WBC) count Ordered By: Harish Baxter on 04-27-2024 WBC (Bld) [#/Vol] 11.1 10*3/uL High 4.4-11.0 [facility] Basic Metabolic Profile (BMP )on 04-26-2024 BUN/CRE 23.4 RATIO High 10-20 [facility] Comment on above: Performed By: #### L 100.0100, L500.2500 ####[facility] [address] [place], [address] Calcium [Mass/Vol] 8.2 mg/dL Normal 7.6-11.0 [facility] Comment on above: Performed By: #### L 100.0100, L500.2500 ####[facility] [address] [place], [address] Chloride [Moles/Vol] 107 mmol/L Normal 98-108 [facility] Comment on above: Performed By: #### L 100.0100, L500.2500 ####[facility] [address] [place], [address] CO2 [Moles/Vol] 22.8 mmol/L Normal 21.0-32.0 [facility] Comment on above: Performed By: #### L 100.0100, L500.2500 ####[facility] [address] [place], [address] Creatinine [Mass/Vol] 0.83 mg/dL Normal 0.70-1.[address] [facility] Comment on above: Performed By: #### L 100.0100, L500.2500 ####[facility] [address] [place], [address] ECRCL 66.39 ml/min Normal 50-250 [facility] Comment on above: Performed By: #### L 100.0100, L500.2500 ####[facility] [address] [place], [address] GAP 6 Normal 5-15 [facility] Comment on above: Performed By: #### L 100.0100, L500.2500 ####[facility] [address] [place], [address] GFR/1.73 sq M.predicted among non-blacks MDRD (S/P/Bld) [Vol rate/Area] 87 mL/min/{1.73_m2} Normal >60 [facility] Comment on above: Result Comment: mL/m in/1.73m2 CKD-EPI Creatinine Equation (2020) Performed By: #### L 100.0100, L500.2500 ####[facility] [address] [place], [address] Glucose [Mass/Vol] 91 mg/dL Normal 70-99 [facility] Comment on above: Performed By: #### L 100.0100, L500.2500 ####[facility] [address] [place], [address] Potassium [Moles/Vol] 4.5 mmol/L Normal 3.3-5.[address] [facility] Comment on above: Performed By: #### L 100.0100, L500.2500 ####[facility] [address] [place], [address] Sodium [Moles/Vol] 136 mmol/L Normal 133-145 [facility] Comment on above: Performed By: #### L 100.0100, L500.2500 ####[facility] [address] [place], [address] Urea nitrogen [Mass/Vol] 20 mg/dL High 4-19 [facility] Comment on above: Performed By: #### L 100.0100, L500.2500 ####[facility] [address] [place], [address] CBC W/Diff, Automatedon 03- Absolute Lymph 2.30 X10 3/uL Normal 0.83-4.51 [facility] Comment on above: Performed By: #### L 100.0100, L500.2500 ####[facility] [address] [place], [address] Absolute Neut 5.4 X10 3/uL Normal 2.0-7.7 [facility] Comment on above: Performed By: #### L 100.0100, L500.2500 ####[facility] [address] [place], [address] Basophils/100 WBC (Bld) 0.1 % Normal 0-1 [facility] Comment on above: Performed By: #### L 100.0100, L500.2500 ####[facility] [address] [place], [address] Eosinophils/100 WBC (Bld) 2.2 % Normal 0-5 [facility] Comment on above: Performed By: #### L 100.0100, L500.2500 ####[facility] [address] [place], [address] Erythrocyte distribution width (RBC) [Ratio] 12.5 % Normal 11.6-14.6 [facility] Comment on above: Performed By: #### L 100.0100, L500.2500 ####[facility] [address] [place], [address] Hematocrit (Bld) [Volume fraction] 38.8 % Low 40-54 [facility] Comment on above: Performed By: #### L 100.0100, L500.2500 ####[facility] [address] [place], [address] Hemoglobin (Bld) [Mass/Vol] 13.3 g/dL Normal 13.0-16.5 [facility] Comment on above: Performed By: #### L 100.0100, L500.2500 ####[facility] [address] [place], [address] IG% 0.700 Normal 0.0-0.9 [facility] Comment on above: Result Comment: IG% - Immature Granulocytes (promyelocytes, myelocytes andmetamyelocytes) > 1% indicates that a LEFT SHIFT is Present. Performed By: #### L 100.0100, L500.2500 ####[facility] [address] [place], [address] Lymphocytes/100 WBC (Bld) 26.4 % Normal 19-41 [facility] Comment on above: Performed By: #### L 100.0100, L500.2500 ####[facility] [address] [place], [address] MCH (RBC) [Entitic mass] 29.8 pg Normal 27.0-32.0 [facility] Comment on above: Performed By: #### L 100.0100, L500.2500 ####[facility] [address] [place], [address] MCHC (RBC) [Mass/Vol] 34.3 g/dL Normal 32-[address] [facility] Comment on above: Performed By: #### L 100.0100, L500.2500 ####[facility] [address] [place], [address] MCV (RBC) [Entitic vol] 87.0 fL Normal 80-94 [facility] Comment on above: Performed By: #### L 100.0100, L500.2500 ####[facility] [address] [place], [address] Monocytes/100 WBC (Bld) 8.2 % Normal 0-10 [facility] Comment on above: Performed By: #### L 100.0100, L500.2500 ####[facility] [address] [place], [address] Neutrophils/100 WBC (Bld) 62.4 % Normal 47-70 [facility] Comment on above: Performed By: #### L 100.0100, L500.2500 ####[facility] [address] [place], [address] Nucleated RBC (Bld) [#/Vol] 0 10*3/uL Normal 0-5 [facility] Comment on above: Performed By: #### L 100.0100, L500.2500 ####[facility] [address] [place], [address] Platelet mean volume (Bld) [Entitic vol] 8.5 fL Normal 6.2-12.0 [facility] Comment on above: Performed By: #### L 100.0100, L500.2500 ####[facility] [address] [place], [address] Platelets (Bld) [#/Vol] 168 10*3/uL Normal 150-450 [facility] Comment on above: Performed By: #### L 100.0100, L500.2500 ####[facility] [address] [place], [address] RBC (Bld) [#/Vol] 4.46 10*6/uL Low 4.6-6.2 [facility] Comment on above: Performed By: #### L 100.0100, L500.2500 ####[facility] [address] [place], [address] RDW SD 39.8 fl Normal 35.1-43.9 [facility] Comment on above: Performed By: #### L 100.0100, L500.2500 ####[facility] [address] [place], [address] WBC (Bld) [#/Vol] 8.7 10*3/uL Normal 4.4-11.0 [facility] Comment on above: Performed By: #### L 100.0100, L500.2500 ####[facility] [address] [place], [address] Cerv Spine 2 or 3 Viewson Cerv Spine 2 or 3 Views Normal [facility] HH, Hemoglobin AND Hematocri ton 04-26-2024 Hematocrit (Bld) [Volume fraction] 37.7 % Low 40-54 [facility] Comment on above: Performed By: #### L 100.0600 ####[facility] [address] [place], [address] Hemoglobin (Bld) [Mass/Vol] 12.8 g/dL Low 13.0-16.5 [facility] Comment on above: Performed By: #### L 100.0600 ####[facility] [address] [place], [address] MR/POSTOP.ANEon 04-26-2024 MR/POSTOP.ANE Normal [facility] MR/POSTOP.ANE Normal [facility] MR/KJEKAEFK4fu 04-26-2024 MR/POSTOPAN2 Normal [facility] O.R. Fluoro for C-Cr - O.R. Fluoro for C-Arm Normal [facility] Operative Reporton Operative Report Normal [facility] Basic Metabolic Profile (BMP )on 04-25-2024 BUN/CRE 26.7 RATIO High 10-20 [facility] Comment on above: Performed By: #### L 500.2500, L100.0100 ####[facility] [address] [place], [address] Calcium [Mass/Vol] 8.5 mg/dL Normal 7.6-11.0 [facility] Comment on above: Performed By: #### L 500.2500, L100.0100 ####[facility] [address] [place], [address] Chloride [Moles/Vol] 103 mmol/L Normal 98-108 [facility] Comment on above: Performed By: #### L 500.2500, L100.0100 ####[facility] [address] [place], [address] CO2 [Moles/Vol] 24.3 mmol/L Normal 21.0-32.0 [facility] Comment on above: Performed By: #### L 500.2500, L100.0100 ####[facility] [address] [place], [address] Creatinine [Mass/Vol] 0.90 mg/dL Normal 0.70-1.[address] [facility] Comment on above: Performed By: #### L 500.2500, L100.0100 ####[facility] [address] [place], [address] ECRCL 61.22 ml/min Normal 50-250 [facility] Comment on above: Performed By: #### L 500.2500, L100.0100 ####[facility] [address] [place], [address] GAP 10 Normal 5-15 [facility] Comment on above: Performed By: #### L 500.2500, L100.0100 ####[facility] [address] [place], [address] GFR/1.73 sq M.predicted among non-blacks MDRD (S/P/Bld) [Vol rate/Area] 85 mL/min/{1.73_m2} Normal >60 [facility] Comment on above: Result Comment: mL/m in/1.73m2 CKD-EPI Creatinine Equation (2020) Performed By: #### L 500.2500, L100.0100 ####[facility] [address] [place], [address] Glucose [Mass/Vol] 90 mg/dL Normal 70-99 [facility] Comment on above: Performed By: #### L 500.2500, L100.0100 ####[facility] [address] [place], [address] Potassium [Moles/Vol] 4.2 mmol/L Normal 3.3-5.[address] [facility] Comment on above: Performed By: #### L 500.2500, L100.0100 ####[facility] [address] [place], [address] Sodium [Moles/Vol] 138 mmol/L Normal 133-145 [facility] Comment on above: Performed By: #### L 500.2500, L100.0100 ####[facility] [address] [place], [address] Urea nitrogen [Mass/Vol] 24 mg/dL High 4-19 [facility] Comment on above: Performed By: #### L 500.2500, L100.0100 ####[facility] [address] [place], [address] CBC W/Diff, Automatedon 04-08 Absolute Lymph 2.98 X10 3/uL Normal 0.83-4.51 [facility] Comment on above: Performed By: #### L 500.2500, L100.0100 ####[facility] [address] [place], [address] Absolute Neut 6.0 X10 3/uL Normal 2.0-7.7 [facility] Comment on above: Performed By: #### L 500.2500, L100.0100 ####[facility] [address] [place], [address] Basophils/100 WBC (Bld) 0.1 % Normal 0-1 [facility] Comment on above: Performed By: #### L 500.2500, L100.0100 ####[facility] [address] [place], [address] Eosinophils/100 WBC (Bld) 1.3 % Normal 0-5 [facility] Comment on above: Performed By: #### L 500.2500, L100.0100 ####[facility] [address] [place], [address] Erythrocyte distribution width (RBC) [Ratio] 12.5 % Normal 11.6-14.6 [facility] Comment on above: Performed By: #### L 500.2500, L100.0100 ####[facility] [address] [place], [address] Hematocrit (Bld) [Volume fraction] 38.8 % Low 40-54 [facility] Comment on above: Performed By: #### L 500.2500, L100.0100 ####[facility] [address] [place], [address] Hemoglobin (Bld) [Mass/Vol] 13.5 g/dL Normal 13.0-16.5 [facility] Comment on above: Performed By: #### L 500.2500, L100.0100 ####[facility] [address] [place], [address] IG% 0.700 Normal 0.0-0.9 [facility] Comment on above: Result Comment: IG% - Immature Granulocytes (promyelocytes, myelocytes andmetamyelocytes) > 1% indicates that a LEFT SHIFT is Present. Performed By: #### L 500.2500, L100.0100 ####[facility] [address] [place], [address] Lymphocytes/100 WBC (Bld) 30.0 % Normal 19-41 [facility] Comment on above: Performed By: #### L 500.2500, L100.0100 ####[facility] [address] [place], [address] MCH (RBC) [Entitic mass] 29.9 pg Normal 27.0-32.0 [facility] Comment on above: Performed By: #### L 500.2500, L100.0100 ####[facility] [address] [place], [address] MCHC (RBC) [Mass/Vol] 34.8 g/dL Normal 32-[address] [facility] Comment on above: Performed By: #### L 500.2500, L100.0100 ####[facility] [address] [place], [address] MCV (RBC) [Entitic vol] 86.0 fL Normal 80-94 [facility] Comment on above: Performed By: #### L 500.2500, L100.0100 ####[facility] [address] [place], [address] Monocytes/100 WBC (Bld) 7.5 % Normal 0-10 [facility] Comment on above: Performed By: #### L 500.2500, L100.0100 ####[facility] [address] [place], [address] Neutrophils/100 WBC (Bld) 60.4 % Normal 47-70 [facility] Comment on above: Performed By: #### L 500.2500, L100.0100 ####[facility] [address] [place], [address] Nucleated RBC (Bld) [#/Vol] 0 10*3/uL Normal 0-5 [facility] Comment on above: Performed By: #### L 500.2500, L100.0100 ####[facility] [address] [place], [address] Platelet mean volume (Bld) [Entitic vol] 8.5 fL Normal 6.2-12.0 [facility] Comment on above: Performed By: #### L 500.2500, L100.0100 ####[facility] [address] [place], [address] Platelets (Bld) [#/Vol] 186 10*3/uL Normal 150-450 [facility] Comment on above: Performed By: #### L 500.2500, L100.0100 ####[facility] [address] [place], [address] RBC (Bld) [#/Vol] 4.51 10*6/uL Low 4.6-6.2 [facility] Comment on above: Performed By: #### L 500.2500, L100.0100 ####[facility] [address] [place], [address] RDW SD 39.1 fl Normal 35.1-43.9 [facility] Comment on above: Performed By: #### L 500.2500, L100.0100 ####[facility] [address] [place], [address] WBC (Bld) [#/Vol] 9.9 10*3/uL Normal 4.4-11.0 [facility] Comment on above: Performed By: #### L 500.2500, L100.0100 ####[facility] [address] [place], [address] 12 Lead EKGon 04-24-2024 12 Lead EKG Normal [facility] Basic Metabolic Profile (BMP )on 04-24-2024 BUN/CRE 25.3 RATIO High 10-20 [facility] Comment on above: Order Comment: pre-o p Performed By: #### L 500.2500, L100.0100 ####[facility] [address] [place], [address] Calcium [Mass/Vol] 8.7 mg/dL Normal 7.6-11.0 [facility] Comment on above: Order Comment: pre-o p Performed By: #### L 500.2500, L100.0100 ####[facility] [address] [place], [address] Chloride [Moles/Vol] 103 mmol/L Normal 98-108 [facility] Comment on above: Order Comment: pre-o p Performed By: #### L 500.2500, L100.0100 ####[facility] [address] [place], [address] CO2 [Moles/Vol] 26.7 mmol/L Normal 21.0-32.0 [facility] Comment on above: Order Comment: pre-o p Performed By: #### L 500.2500, L100.0100 ####[facility] [address] [place], [address] Creatinine [Mass/Vol] 0.97 mg/dL Normal 0.70-1.[address] [facility] Comment on above: Order Comment: pre-o p Performed By: #### L 500.2500, L100.0100 ####[facility] [address] [place], [address] ECRCL 56.80 ml/min Normal 50-250 [facility] Comment on above: Order Comment: pre-o p Performed By: #### L 500.2500, L100.0100 ####[facility] [address] [place], [address] GAP 8 Normal 5-15 [facility] Comment on above: Order Comment: pre-o p Performed By: #### L 500.2500, L100.0100 ####[facility] [address] [place], [address] GFR/1.73 sq M.predicted among non-blacks MDRD (S/P/Bld) [Vol rate/Area] 78 mL/min/{1.73_m2} Normal >60 [facility] Comment on above: Order Comment: pre-o p Result Comment: mL/m in/1.73m2 CKD-EPI Creatinine Equation (2020) Performed By: #### L 500.2500, L100.0100 ####[facility] [address] [place], [address] Glucose [Mass/Vol] 94 mg/dL Normal 70-99 [facility] Comment on above: Order Comment: pre-o p Performed By: #### L 500.2500, L100.0100 ####[facility] [address], [address] Potassium [Moles/Vol] 4.2 mmol/L Normal 3.3-5.[address] [facility] Comment on above: Order Comment: pre-o p Performed By: #### L 500.2500, L100.0100 ####[facility] [address] [place], [address] Sodium [Moles/Vol] 138 mmol/L Normal 133-145 [facility] Comment on above: Order Comment: pre-o p Performed By: #### L 500.2500, L100.0100 ####[facility] [address] [place], [address] Urea nitrogen [Mass/Vol] 25 mg/dL High 4-19 [facility] Comment on above: Order Comment: pre-o p Performed By: #### L 500.2500, L100.0100 ####[facility] [address] [place], [address] CBC W/Diff, Automatedon 04-08 Absolute Lymph 3.18 X10 3/uL Normal 0.83-4.51 [facility] Comment on above: Order Comment: Comme nts: pre-op Performed By: #### L 500.2500, L100.0100 ####[facility] [address] [place], [address] Absolute Neut 6.3 X10 3/uL Normal 2.0-7.7 [facility] Comment on above: Order Comment: Comme nts: pre-op Performed By: #### L 500.2500, L100.0100 ####[facility] [address] [place], [address] Basophils/100 WBC (Bld) 0.1 % Normal 0-1 [facility] Comment on above: Order Comment: Comme nts: pre-op Performed By: #### L 500.2500, L100.0100 ####[facility] [address] [place], [address] Eosinophils/100 WBC (Bld) 0.7 % Normal 0-5 [facility] Comment on above: Order Comment: Comme nts: pre-op Performed By: #### L 500.2500, L100.0100 ####[facility] [address] [place], [address] Erythrocyte distribution width (RBC) [Ratio] 12.3 % Normal 11.6-14.6 [facility] Comment on above: Order Comment: Comme nts: pre-op Performed By: #### L 500.2500, L100.0100 ####[facility] [address] [place], [address] Hematocrit (Bld) [Volume fraction] 39.7 % Low 40-54 [facility] Comment on above: Order Comment: Comme nts: pre-op Performed By: #### L 500.2500, L100.0100 ####[facility] [address] [place], [address] Hemoglobin (Bld) [Mass/Vol] 13.6 g/dL Normal 13.0-16.5 [facility] Comment on above: Order Comment: Comme nts: pre-op Performed By: #### L 500.2500, L100.0100 ####[facility] [address] [place], [address] IG% 0.500 Normal 0.0-0.9 [facility] Comment on above: Order Comment: Comme nts: pre-op Result Comment: IG% - Immature Granulocytes (promyelocytes, myelocytes andmetamyelocytes) > 1% indicates that a LEFT SHIFT is Present. Performed By: #### L 500.2500, L100.0100 ####[facility] [address] [place], [address] Lymphocytes/100 WBC (Bld) 30.5 % Normal 19-41 [facility] Comment on above: Order Comment: Comme nts: pre-op Performed By: #### L 500.2500, L100.0100 ####[facility] [address] [place], [address] MCH (RBC) [Entitic mass] 29.8 pg Normal 27.0-32.0 [facility] Comment on above: Order Comment: Comme nts: pre-op Performed By: #### L 500.2500, L100.0100 ####[facility] [address] [place], [address] MCHC (RBC) [Mass/Vol] 34.3 g/dL Normal 32-[address] [facility] Comment on above: Order Comment: Comme nts: pre-op Performed By: #### L 500.2500, L100.0100 ####[facility] [address] [place], [address] MCV (RBC) [Entitic vol] 87.1 fL Normal 80-94 [facility] Comment on above: Order Comment: Comme nts: pre-op Performed By: #### L 500.2500, L100.0100 ####[facility] [address] [place], [address] Monocytes/100 WBC (Bld) 7.9 % Normal 0-10 [facility] Comment on above: Order Comment: Comme nts: pre-op Performed By: #### L 500.2500, L100.0100 ####[facility] [address] [place], [address] Neutrophils/100 WBC (Bld) 60.3 % Normal 47-70 [facility] Comment on above: Order Comment: Comme nts: pre-op Performed By: #### L 500.2500, L100.0100 ####[facility] [address] [place], [address] Nucleated RBC (Bld) [#/Vol] 0 10*3/uL Normal 0-5 [facility] Comment on above: Order Comment: Comme nts: pre-op Performed By: #### L 500.2500, L100.0100 ####[facility] [address] [place], [address] Platelet mean volume (Bld) [Entitic vol] 8.5 fL Normal 6.2-12.0 [facility] Comment on above: Order Comment: Comme nts: pre-op Performed By: #### L 500.2500, L100.0100 ####[facility] [address] [place], [address] Platelets (Bld) [#/Vol] 199 10*3/uL Normal 150-450 [facility] Comment on above: Order Comment: Comme nts: pre-op Performed By: #### L 500.2500, L100.0100 ####[facility] [address] [place], [address] RBC (Bld) [#/Vol] 4.56 10*6/uL Low 4.6-6.2 [facility] Comment on above: Order Comment: Comme nts: pre-op Performed By: #### L 500.2500, L100.0100 ####[facility] [address] [place], [address] RDW SD 39.4 fl Normal 35.1-43.9 [facility] Comment on above: Order Comment: Comme nts: pre-op Performed By: #### L 500.2500, L100.0100 ####[facility] [address] [place], [address] WBC (Bld) [#/Vol] 10.4 10*3/uL Normal 4.4-11.0 [facility] Comment on above: Order Comment: Comme nts: pre-op Performed By: #### L 500.2500, L100.0100 ####[facility] [address] [place], [address] Electrocardiogram reportOrde red By: Danette Sargent on 04-24-2024 EKG study [facility] Cardiovascular Services [address] [place] [address] 12 Lead EKG 04/19/24 1131 MR#: [id number] Acct: [id number] Name: YAS ROSA Rep #:[id number] : 1940 83 From: Danette cartagena MD Attending Dr: Dr. Harish Baxter MD Status: ADM IN Ordering Dr: Laureano Gallagher DO Date: 0 04/19/24 Location: [facility] Sex: M C Admitted: 04/20/24 Test Reason : Blood Pressure : */* mmHG Vent. Rate : 69 BPM Atrial Rate : 69 BPM P-R Int : 126 ms QRS Dur : 82 ms QT Int : 426 ms P-R-T Axes : 54 -19 33 degrees QTcB Int : 456 ms Normal sinus rhythm Normal ECG Confirmed by ROSETTA CABELLO, KACEY ([id number]), loan expeditor LEANDER BRAY ([id number]) on04/24/2024 11:11:40 AM Referred By: KAYLAH Confirmed By: KACEY SARGENT MD 04/24/24 1111 Date _ Danette Sargent MD CC: Dr. Kwabena Menjivar MD; Dr. Laureano Gallagher DO; Dr. Harish Baxter MD ~ Signed [facility] Work Phone: Electrocardiogram reportOrde red By: David Granados on 04-24-2024 EKG study [facility] Cardiovascular Services [address] [place] [address] 12 Lead EKG 04/24/24 0501 MR#: [id number] Acct: [id number] Name: YAS ROSA Rep #:[id number] : 1940 83 From: David Granados MD Attending Dr: Dr. Harish Baxter MD Status: ADM IN Ordering Dr: Krish Guevara MD Date: 04/24/24 Location: [facility] Sex: M C Admitted: 04/20/24 Test [...] DATA IS UNCONFIRMED Confirmed by DARWIN CABELLO, DAIVD ([id number]), loan expeditor LEANDER BRAY ([id number]) on 59:54:30 AM Referred By: Confirmed By: DAVID GRANADOS MD 04/24/24 0954 Date _ David Granados MD CC: Dr. Krish Guevara MD; Dr. Kwabena Menjivar MD; Dr. Harish Baxter MD ~ Signed [facility] Work Phone: Consultation - Orthopedicson 04-21-2024 Consultation - Orthopedics Normal [facility] CBC W/Diff, Automatedon 04-08 Absolute Lymph 2.09 X10 3/uL Normal 0.83-4.51 [facility] Comment on above: Performed By: #### L 100.0100 ####[facility] [address] [place], [address] Absolute Neut 8.7 X10 3/uL High 2.0-7.7 [facility] Comment on above: Performed By: #### L 100.0100 ####[facility] [address] [place], [address] Basophils/100 WBC (Bld) 0.1 % Normal 0-1 [facility] Comment on above: Performed By: #### L 100.0100 ####[facility] [address] [place], [address] Eosinophils/100 WBC (Bld) 0.1 % Normal 0-5 [facility] Comment on above: Performed By: #### L 100.0100 ####[facility] [address] [place], [address] Erythrocyte distribution width (RBC) [Ratio] 12.7 % Normal 11.6-14.6 [facility] Comment on above: Performed By: #### L 100.0100 ####[facility] [address] [place], [address] Hematocrit (Bld) [Volume fraction] 38.5 % Low 40-54 [facility] Comment on above: Performed By: #### L 100.0100 ####[facility] [address] [place], [address] Hemoglobin (Bld) [Mass/Vol] 13.2 g/dL Normal 13.0-16.5 [facility] Comment on above: Performed By: #### L 100.0100 ####[facility] [address] [place], [address] IG% 0.300 Normal 0.0-0.9 [facility] Comment on above: Result Comment: IG% - Immature Granulocytes (promyelocytes, myelocytes andmetamyelocytes) > 1% indicates that a LEFT SHIFT is Present. Performed By: #### L 100.0100 ####[facility] [address] [place], [address] Lymphocytes/100 WBC (Bld) 17.6 % Low 19-41 [facility] Comment on above: Performed By: #### L 100.0100 ####[facility] [address] [place], [address] MCH (RBC) [Entitic mass] 29.5 pg Normal 27.0-32.0 [facility] Comment on above: Performed By: #### L 100.0100 ####[facility] [address] [place], [address] MCHC (RBC) [Mass/Vol] 34.3 g/dL Normal 32-[address] [facility] Comment on above: Performed By: #### L 100.0100 ####[facility] [address] [place], [address] MCV (RBC) [Entitic vol] 86.1 fL Normal 80-94 [facility] Comment on above: Performed By: #### L 100.0100 ####[facility] [address] [place], [address] Monocytes/100 WBC (Bld) 8.4 % Normal 0-10 [facility] Comment on above: Performed By: #### L 100.0100 ####[facility] [address] [place], [address] Neutrophils/100 WBC (Bld) 73.5 % High 47-70 [facility] Comment on above: Performed By: #### L 100.0100 ####[facility] [address] [place], [address] Nucleated RBC (Bld) [#/Vol] 0 10*3/uL Normal 0-5 [facility] Comment on above: Performed By: #### L 100.0100 ####[facility] [address] [place], [address] Platelet mean volume (Bld) [Entitic vol] 8.9 fL Normal 6.2-12.0 [facility] Comment on above: Performed By: #### L 100.0100 ####[facility] [address] [place], [address] Platelets (Bld) [#/Vol] 216 10*3/uL Normal 150-450 [facility] Comment on above: Performed By: #### L 100.0100 ####[facility] [address] [place], [address] RBC (Bld) [#/Vol] 4.47 10*6/uL Low 4.6-6.2 [facility] Comment on above: Performed By: #### L 100.0100 ####[facility] [address] [place], [address] RDW SD 39.5 fl Normal 35.1-43.9 [facility] Comment on above: Performed By: #### L 100.0100 ####[facility] [address] [place], [address] WBC (Bld) [#/Vol] 11.9 10*3/uL High 4.4-11.0 [facility] Comment on above: Performed By: #### L 100.0100 ####[facility] [address] [place], [address] Echocardiogram study reportO rdered By: Danette Sargent on 04-20-2024 Study report [facility] Cardiovascular Services [address] [place] [address] Echo Complete 04/19/24 1500 MR#: [id number] Acct: [id number] Name: YAS ROSA Rep #:[id number] : 1940 83 From: Danette cerrato MD Attending Dr: Dr. Keanu Alfred DO Status: ADM IN Ordering Dr: Keanu Alfred DO Date: Location: [facility] Sex: M C Admitted: 04/20/24 Reason [...] Menjivar Performed By: Melida Child, ALTAGRACIA, RVT 04/20/24 1323 Date _ Danette Sargent MD CC: Dr. Kwabena Menjivar MD; Dr. Keanu Alfred, DO ~ Date Dictated: 04/19/24 1500 Date Transcribed: 04/20/241322 Rehabilitation Director: Signed [facility] Work Phone: 12 Lead EKGon 04-19-2024 12 Lead EKG Normal [facility] Absolute neutrophil countOrd ered By: Laureano Gallagher on 04-19-2024 Neutrophils (Bld) [#/Vol] 12.1 10*3/uL High 2.0-7.7 [facility] Activated partial thrombopla stin time (aPTT) in platelet poor plasma by coagulation aOrdered By: Laureano Gallagher on 04-19-2024 aPTT Coag (PPP) [Time] 23.4 s Low 24.1-36.2 [facility] Anion gap in Serum or Plasma Ordered By: Laureano Gallagher on 04-19-2024 Anion gap [Moles/Vol] 17 mmol/L High 5-[address] [facility] BUN/creatinine ratioOrdered By: Laureano Gallagher on 04-19-2024 Urea nitrogen/Creatinine [Mass ratio] 21.7 mg/mg High 10- [facility] Basic Metabolic Profile (BMP )on 04-19-2024 BUN/CRE 21.7 RATIO High 11-27 [facility] Comment on above: Performed By: #### L 300.4310, L501.4021, L100.0100, L300.3900, L500.2500 ####[facility] [address] [place], [address] Calcium [Mass/Vol] 9.5 mg/dL Normal 7.6-11.0 [facility] Comment on above: Performed By: #### L 300.4310, L501.4021, L100.0100, L300.3900, L500.2500 ####[facility] [address] [place], [address] Chloride [Moles/Vol] 98 mmol/L Normal 98-108 [facility] Comment on above: Performed By: #### L 300.4310, L501.4021, L100.0100, L300.3900, L500.2500 ####[facility] [address] [place], [address] CO2 [Moles/Vol] 22.0 mmol/L Normal 21.0-32.0 [facility] Comment on above: Performed By: #### L 300.4310, L501.4021, L100.0100, L300.3900, L500.2500 ####[facility] [address] [place], [address] Creatinine [Mass/Vol] 0.92 mg/dL Normal 0.70-1.[address] [facility] Comment on above: Performed By: #### L 300.4310, L501.4021, L100.0100, L300.3900, L500.2500 ####[facility] [address] [place], [address] ECRCL 59.89 ml/min Normal 50-250 [facility] Comment on above: Performed By: #### L 300.4310, L501.4021, L100.0100, L300.3900, L500.2500 ####[facility] [address] [place], [address] GAP 17 High 5-15 [facility] Comment on above: Performed By: #### L 300.4310, L501.4021, L100.0100, L300.3900, L500.2500 ####[facility] [address] [place], [address] GFR/1.73 sq M.predicted among non-blacks MDRD (S/P/Bld) [Vol rate/Area] 83 mL/min/{1.73_m2} Normal >60 [facility] Comment on above: Result Comment: mL/m in/1.73m2 CKD-EPI Creatinine Equation (2020) Performed By: #### L 300.4310, L501.4021, L100.0100, L300.3900, L500.2500 ####[facility] [address] [place], [address] Glucose [Mass/Vol] 152 mg/dL High 70-99 [facility] Comment on above: Performed By: #### L 300.4310, L501.4021, L100.0100, L300.3900, L500.2500 ####[facility] [address] [place], [address] Potassium [Moles/Vol] 3.6 mmol/L Normal 3.3-5.[address] [facility] Comment on above: Performed By: #### L 300.4310, L501.4021, L100.0100, L300.3900, L500.2500 ####[facility] [address] [place], [address] Sodium [Moles/Vol] 137 mmol/L Normal 133-145 [facility] Comment on above: Performed By: #### L 300.4310, L501.4021, L100.0100, L300.3900, L500.2500 ####[facility] [address] [place], [address] Urea nitrogen [Mass/Vol] 20 mg/dL High 4-19 [facility] Comment on above: Performed By: #### L 300.4310, L501.4021, L100.0100, L300.3900, L500.2500 ####[facility] [address] [place], [address] Basophil percentageOrdered B y: Laureano Gallagher on 04-19-2024 Basophils/100 WBC (Bld) 0.3 % 0-1 [facility] Bedside Glucoseon 04-19-2024 FINGERSTICK GLU 143 mg/dL High 74-106 [facility] Comment on above: Result Comment: ELIGIO BUSCH OF PATIENT CARE PER NURSING PROTOCOL Performed By: #### L 501.080 ####[facility] [address] [place], [address] Brain without Contraston Brain without Contrast Normal [facility] CBC W/Diff, Automatedon 04-08 Absolute Lymph 1.41 X10 3/uL Normal 0.83-4.51 [facility] Comment on above: Performed By: #### L 300.4310, L501.4021, L100.0100, L300.3900, L500.2500 ####[facility] [address] [place], [address] Absolute Neut 12.1 X10 3/uL High 2.0-7.7 [facility] Comment on above: Performed By: #### L 300.4310, L501.4021, L100.0100, L300.3900, L500.2500 ####[facility] [address] [place], [address] Basophils/100 WBC (Bld) 0.3 % Normal 0-1 [facility] Comment on above: Performed By: #### L 300.4310, L501.4021, L100.0100, L300.3900, L500.2500 ####[facility] [address] [place], [address] Eosinophils/100 WBC (Bld) 0.0 % Normal 0-5 [facility] Comment on above: Performed By: #### L 300.4310, L501.4021, L100.0100, L300.3900, L500.2500 ####[facility] [address] [place], [address] Erythrocyte distribution width (RBC) [Ratio] 12.3 % Normal 11.6-14.6 [facility] Comment on above: Performed By: #### L 300.4310, L501.4021, L100.0100, L300.3900, L500.2500 ####[facility] [address] [place], [address] Hematocrit (Bld) [Volume fraction] 45.5 % Normal 40-54 [facility] Comment on above: Performed By: #### L 300.4310, L501.4021, L100.0100, L300.3900, L500.2500 ####[facility] [address] [place], [address] Hemoglobin (Bld) [Mass/Vol] 16.0 g/dL Normal 13.0-16.5 [facility] Comment on above: Performed By: #### L 300.4310, L501.4021, L100.0100, L300.3900, L500.2500 ####[facility] [address] [place], [address] IG% 0.500 Normal 0.0-0.9 [facility] Comment on above: Result Comment: IG% - Immature Granulocytes (promyelocytes, myelocytes andmetamyelocytes) > 1% indicates that a LEFT SHIFT is Present. Performed By: #### L 300.4310, L501.4021, L100.0100, L300.3900, L500.2500 ####[facility] [address] [place], [address] Lymphocytes/100 WBC (Bld) 9.8 % Low 19-41 [facility] Comment on above: Performed By: #### L 300.4310, L501.4021, L100.0100, L300.3900, L500.2500 ####[facility] [address] [place], [address] MCH (RBC) [Entitic mass] 30.0 pg Normal 27.0-32.0 [facility] Comment on above: Performed By: #### L 300.4310, L501.4021, L100.0100, L300.3900, L500.2500 ####[facility] [address] [place], [address] MCHC (RBC) [Mass/Vol] 35.2 g/dL Normal 32-[address] [facility] Comment on above: Performed By: #### L 300.4310, L501.4021, L100.0100, L300.3900, L500.2500 ####[facility] [address] [place], [address] MCV (RBC) [Entitic vol] 85.2 fL Normal 80-94 [facility] Comment on above: Performed By: #### L 300.4310, L501.4021, L100.0100, L300.3900, L500.2500 ####[facility] [address] [place], [address] Monocytes/100 WBC (Bld) 5.7 % Normal 0-10 [facility] Comment on above: Performed By: #### L 300.4310, L501.4021, L100.0100, L300.3900, L500.2500 ####[facility] [address] [place], [address] Neutrophils/100 WBC (Bld) 83.7 % High 47-70 [facility] Comment on above: Performed By: #### L 300.4310, L501.4021, L100.0100, L300.3900, L500.2500 ####[facility] [address] [place], [address] Nucleated RBC (Bld) [#/Vol] 0 10*3/uL Normal 0-5 [facility] Comment on above: Performed By: #### L 300.4310, L501.4021, L100.0100, L300.3900, L500.2500 ####[facility] [address] [place], [address] Platelet mean volume (Bld) [Entitic vol] 8.6 fL Normal 6.2-12.0 [facility] Comment on above: Performed By: #### L 300.4310, L501.4021, L100.0100, L300.3900, L500.2500 ####[facility] [address] [place], [address] Platelets (Bld) [#/Vol] 216 10*3/uL Normal 150-450 [facility] Comment on above: Performed By: #### L 300.4310, L501.4021, L100.0100, L300.3900, L500.2500 ####[facility] [address] [place], [address] RBC (Bld) [#/Vol] 5.34 10*6/uL Normal 4.6-6.2 [facility] Comment on above: Performed By: #### L 300.4310, L501.4021, L100.0100, L300.3900, L500.2500 ####[facility] [address] [place], [address] RDW SD 37.7 fl Normal 35.1-43.9 [facility] Comment on above: Performed By: #### L 300.4310, L501.4021, L100.0100, L300.3900, L500.2500 ####[facility] [address] [place], [address] WBC (Bld) [#/Vol] 14.4 10*3/uL High 4.4-11.0 [facility] Comment on above: Performed By: #### L 300.4310, L501.4021, L100.0100, L300.3900, L500.2500 ####[facility] [address] [place], [place], [address] Carbon dioxide, total [Moles /volume] in Central venous bloodOrdered By: Laureano Gallagher on 04-19-2024 CO2 [Moles/Vol] 22.0 mmol/L 21.0-32.0 [facility] Chest 1 Viewon 04-19-2024 Chest 1 View Normal [facility] Chloride assayOrdered By: Donovan Gallagher on 04-19-2024 Chloride [Moles/Vol] 98 mmol/L 98-108 [facility] Consultation - Surgicalon Consultation - Surgical Normal [facility] Echo Completeon 04-19-2024 Echo Complete Normal [facility] Emergency Department Summary on 04-19-2024 Emergency Department Summary Normal [facility] Eosinophil percentageOrdered By: Laureano Gallagher on 04-19-2024 Eosinophils/100 WBC (Bld) 0.0 % 0-5 [facility] Erythrocyte distribution wid th ratioOrdered By: Laureano Gallagher on 04-19-2024 Erythrocyte distribution width (RBC) [Ratio] 12.3 % 11.6-14.6 [facility] Erythrocyte distribution wid th standard deviationOrdered By: Laureano Gallagher on 04-19-2024 Erythrocyte distribution width (RBC) [Entitic vol] 37.7 fL 35.1-43.9 [facility] Estimation of creatinine yahir aranceOrdered By: Laureano Gallagher on 04-19-2024 Estimated Creatinine Clearance Calc 59.89 ml/min 50-250 [facility] GFR/1.73 sq M.predicted darrick g non-blacks MDRD (S/P/Bld) [Vol rate/Area]Ordered By: Laureano Gallagher on 04-19-2024 Estimated GFR (MDRD) Non-Af Amer 83 >60 [facility] Comment on above: mL/min/1.73m2 CKD-EP I Creatinine Equation (2020) [facility] de[facility]dered By: Laureano Gallagher on 04-19-2024 Bedside [facility] 143 mg/dL High 74-106 [facility] Comment on above: MANAGEMENT OF PATIEN T CARE PER NURSING PROTOCOL Glucose [Mass/Vol] 143 mg/dL High 74-106 [facility] H AND P Exam - Hospitaliston 04-19-2024 H&P Exam - Hospitalist Normal [facility] Hematocrit Auto (Bld) [Volum e fraction]Ordered By: Laureano Gallagher on 04-19-2024 Hematocrit (Bld) [Volume fraction] 45.5 % 40-54 [facility] Hemoglobin measurementOrdere d By: Laureano Gallagher on 04-19-2024 Hemoglobin (Bld) [Mass/Vol] 16.0 g/dL 13.0-16.5 [facility] Immature granulocytes/100 WB C Auto (Bld)Ordered By: Laureano Gallagher on 04-19-2024 Immature granulocytes/100 WBC (Bld) 0.500 % 0.0-0.9 [facility] Comment on above: IG% - Immature Granu locytes (promyelocytes, myelocytes and metamyelocytes) > 1% indicates that a LEFT SHIFT is Present. International normalized rat io (INR) calculationOrdered By: Laureano Gallagher on 04-19-2024 INR Coag (Bld) [Relative time] 1.0 {INR} [facility] L499.0042on 04-19-2024 Trop T High Sen 30 ng/L High <=22 [facility] Comment on above: Performed By: #### L 499.0042 ####[facility] [address] [place], [place], [address] Trop T High Sen Normal <=22 [facility] Comment on above: Result Comment: Canc elled via OM: sequence error Performed By: #### L 499.0042 ####[facility] [address] [place], [address] L499.0043on 04-19-2024 Trop T High Sen 35 ng/L High <=22 [facility] Comment on above: Performed By: #### L 499.0043 ####[facility] [address] [place], [address] Trop T High Sen Normal <=22 [facility] Comment on above: Result Comment: PER OM STARTED SERIES OVER ON FLOOR ER DID NOT DRAW SPECIMEN Performed By: #### L 499.0043 ####[facility] [address] [place], [address] L501.4021on 04-19-2024 Trop T High Sen 31 ng/L High <=22 [facility] Comment on above: Performed By: #### L 501.4021 ####[facility] [address] [place], [address] Trop T High Sen 31 ng/L High <=22 [facility] Comment on above: Performed By: #### L 300.4310, L501.4021, L100.0100, L300.3900, L500.2500 ####[facility] [address] [place], [address] Lymphocytes Auto (Unsp spec) [#/Vol]Ordered By: Laureano Gallagher on 04-19-2024 Lymphocytes (Bld) [#/Vol] 1.41 10*3/uL 0.83-4.51 [facility] Lymphocytes/100 WBC Auto (Un sp spec)Ordered By: Laureano Gallagher on 04-19-2024 Lymphocytes/100 WBC (Bld) 9.8 % Low 19-41 [facility] MCV (mean corpuscular volume ) determinationOrdered By: Laureano Gallagher on 04-19-2024 MCV (RBC) [Entitic vol] 85.2 fL 80-94 [facility] Magnetic resonance imaging r eportOrdered By: Yas Mobley on 04-19-2024 Study report [facility] Imaging Services [address] [place] [address] Spine Cervical (Routine) MR#: [id number] Acct: [id number] Name: YAS ROSA Rep #: [id number] : 1940 M 83 From: Selwyn Mobley DO PCP: Dr. Kwabena Menjivar MD Status: ADM IRINA Study:Spine Cervical (Routine) Date of Exam: 04/19/24 Exam# [id number] Ordering Dr: Keanu Alfred DO PROCEDURE: MRI [...] related to severe spinal stenosis. Reading Location: [place] CC: Dr. Kwabena Menjivar MD; Dr. Keanu Alfred DO ~ Rehabilitation Director: Signed [facility] Study report [facility] Imaging Services [address] [place], [place] [address] Brain without Contrast MR#: [id number] Acct: [id number] Name: YAS ROSA Rep #: [id number] : 1940 M 83 From: Selwyn Mobley DO PCP: Dr. Kwabena Menjivar MD Status: ADM IRINA Study:Brain without Contrast Date of Exam: 04/19/24 Exam# [id number] Ordering Dr: Keanu Alfred DO PROCEDURE: MRI [...] Menjivar MD; Dr. Keanu Alfred DO ~ Rehabilitation Director: Signed [facility] Mean corpuscular hemoglobin (MCH) determinationOrdered By: Laureano Gallagher on 04-19-2024 MCH (RBC) [Entitic mass] 30.0 pg 27.0-32.0 [facility] Mean corpuscular hemoglobin concentration (MCHC) determinationOrdered By: Laureano Gallagher on 04-19-2024 MCHC (RBC) [Mass/Vol] 35.2 g/dL 32-[address] [facility] Mean platelet volume determi nationOrdered By: Laureano Gallagher on 04-19-2024 Platelet mean volume (Bld) [Entitic vol] 8.6 fL 6.2-12.0 [facility] Monocyte percentageOrdered B y: Laureano Gallagher on 04-19-2024 Monocytes/100 WBC (Bld) 5.7 % 0-10 [facility] Neutrophil percentageOrdered By: Laureaon Gallagher on 04-19-2024 Neutrophils/100 WBC (Bld) 83.7 % High 47-70 [facility] No Panel InformationOrdered By: Keanu Alfred on 04-19-2024 Troponin T High Sensitivity 31 ng/L High <22 [facility] 31 ng/L High <22 [facility] No Panel InformationOrdered By: Laureano Gallagher on 04-19-2024 Troponin T High Sensitivity 31 ng/L High <22 [facility] Nucleated red blood cell per centageOrdered By: Laureano Gallagher on 04-19-2024 Nucleated RBC/100 WBC (Bld) [Ratio] 0 % 0-5 [facility] Partial Thromboplast Timeon 04-19-2024 aPTT Coag (Bld) [Time] 23.4 s Low 24.1-36.2 [facility] Comment on above: Performed By: #### L 300.4310, L501.4021, L100.0100, L300.3900, L500.2500 ####[facility] [address] [place], [place], [id number] Platelet countOrdered By: Donovan Gallagher on 04-19-2024 Platelets (Bld) [#/Vol] 216 10*3/uL 150-450 [facility] Potassium (Unsp spec) [Mass/ Vol]Ordered By: Laureano Gallagher on 04-19-2024 Potassium [Moles/Vol] 3.6 mmol/L 3.3-5.[address] [facility] Prothrombin Time w/INRon INR Coag (PPP) [Relative time] 1.0 {INR} Normal [facility] Comment on above: Performed By: #### L 300.4310, L501.4021, L100.0100, L300.3900, L500.2500 ####[facility] [address] [place], [place], [phone] PT Coag (PPP) [Time] 13.5 s Normal 11.7-14.9 [facility] Comment on above: Performed By: #### L 300.4310, L501.4021, L100.0100, L300.3900, L500.2500 ####[facility] [address] [place], [place], [id number] Prothrombin timeOrdered By: Laureano Gallagher on 04-19-2024 PT Coag (PPP) [Time] 13.5 s 11.7-14.9 [facility] RBC Auto (Bld) [#/Vol]Ordere d By: Laureano Gallagher on 04-19-2024 RBC (Bld) [#/Vol] 5.34 10*6/uL 4.6-6.2 [facility] STROKE Brain/Head without Co nton 04-19-2024 STROKE Brain/Head without Cont Normal [facility] STROKE CTA Head AND Neck W/C onon 04-19-2024 STROKE CTA Head AND Neck W/Con Normal [facility] Serum creatinine measurement (mass/volume)Ordered By: Laureano Gallagher on 04-19-2024 Creatinine [Mass/Vol] 0.92 mg/dL 0.70-1.[address] [facility] Serum glucose measurement (m ass/volume)Ordered By: Laureano Gallagher on 04-19-2024 Glucose [Mass/Vol] 152 mg/dL High 70-99 [facility] Serum or plasma calcium ratna urement (mass/volume)Ordered By: Laureano Gallagher on 04-19-2024 Calcium [Mass/Vol] 9.5 mg/dL 7.6-11.0 [facility] Serum or plasma urea nitroge n measurement (mass/volume)Ordered By: Laureano Gallagher on 04-19-2024 Urea nitrogen [Mass/Vol] 20 mg/dL High 4-19 [facility] Sinus/Facial Boneon 04-20-19 25 Sinus/Facial Bone Normal [facility] Sodium levelOrdered By: Surinder Gallagher on 04-19-2024 Sodium [Moles/Vol] 137 mmol/L 133-145 [facility] Spine Cervical (Routine)on 0 04-19-2024 Spine Cervical (Routine) Normal [facility] Troponin T.cardiac High sens itivity method [Mass/Vol]Ordered By: Keanu Alfred on 04-19-2024 Troponin T High Sensitivity 4 Hour 35 ng/L High <22 [facility] Troponin T High Sensitivity 2 Hour 30 ng/L High <22 [facility] Troponin T.cardiac [Mass/vol ume] in Serum or Plasma by High sensitivity methodOrdered By: Keanu Alfred on 04-19-2024 Troponin T.cardiac High sensitivity method [Mass/Vol] 35 ng/L High <22 [facility] Troponin T.cardiac High sensitivity method [Mass/Vol] 30 ng/L High <22 [facility] White blood cell (WBC) count Ordered By: Laureano Gallagher on 04-19-2024 WBC (Bld) [#/Vol] 14.4 10*3/uL High 4.4-11.0 [facility] aPTT Coag (PPP) [Time]Ordere d By: Laureano Gallagher on 04-19-2024 aPTT Coag (Bld) [Time] 23.4 s Low 24.1-36.2 [facility] Cerv Spine 4 or 5 Viewson Cerv Spine 4 or 5 Views Normal [facility] Brain/Head without Contrasto n 02-26-2024 Brain/Head without Contrast Normal [facility] Emergency Department Summary on 02-26-2024 Emergency Department Summary Normal [facility] Knee 4 or More Viewson 02-25 Knee 4 or More Views Normal [facility] Shoulder min 2 Viewson 02-25 Shoulder min 2 Views Normal [facility] Absolute lymphocyte countOrd ered By: William Menjivar on 10-22-2022 Lymphocytes Auto (Unsp spec) [#/Vol] 2.36 10*3/uL 0.83-4.51 [facility] Basophil percentageOrdered B y: William Menjivar on 10-22-2022 Basophils/100 WBC (Bld) 0.5 % 0-1 [facility] Bilirubin [Mass/Vol] 0.40 mg/dL 0.20-1.00 [facility] Comment on above: For patients on eltr ombopag therapy, use of Dimension [place] TBIL is not recommended. Chloride [Moles/Vol] 107 mmol/L 98-107 [facility] Cholesterol [Mass/Vol] 171 mg/dL <200 [facility] Comment on above: <200 mg/dL Desirable 200-240 mg/dL Borderline >240 mg/dL High Risk Eosinophils/100 WBC (Bld) 2.4 % 0-5 [facility] Glucose [Mass/Vol] 94 mg/dL 74-106 [facility] Neutrophils (Bld) [#/Vol] 3.5 10*3/uL 2.0-7.7 [facility] Neutrophils/100 WBC (Bld) 53.3 % 47-70 [facility] Potassium [Moles/Vol] 4.0 mmol/L 3.5-5.[address] [facility] Protein [Mass/Vol] 6.8 g/dL 6.4-8.2 [facility] Sodium [Moles/Vol] 138 mmol/L 136-145 [facility] Testosterone [Mass/Vol] 600.99 ng/dL [facility] Comment on above: CENTRAL 90% REFERENC E RANGES MALE AGE <50 197.44 - 669.58 ng/dL MALE AGE > or = 50 187.72 - 684.19 ng/dL FEMALE AGE <50 8.38 - 35.01 ng/dL FEMALE AGE > or = 50 <7.00 - 35.92 ng/dL Effective as of 09/03/20 Triglyceride [Mass/Vol] 144 mg/dL <199 [facility] Comment on above: The drugs N-Acetylcy steine and Metamizole may falsely depress this assay.Serum Triglycerides Reference Interval Normal <150 mg/dL Borderline high 150 - 199 mg/dL High 200 - 499 mg/dL Very High > or = 500 mg/dL WBC (Bld) [#/Vol] 6.6 10*3/uL 4.4-11.0 [facility] Blood erythrocytes count (nu mber/volume)Ordered By: William Menjivar on 10-22-2022 RBC (Bld) [#/Vol] 5.14 10*6/uL 4.6-6.2 [facility] Blood hemoglobin measurement (mass/volume)Ordered By: William Menjivar on 10-22-2022 Hemoglobin (Bld) [Mass/Vol] 15.5 g/dL 13.0-16.5 [facility] Blood lymphocytes/100 leukoc ytesOrdered By: William Menjivar on 10-22-2022 Lymphocytes/100 WBC (Bld) 35.8 % 19-41 [facility] Blood monocytes/100 leukocyt esOrdered By: William Menjivar on 10-22-2022 Monocytes/100 WBC (Bld) 7.7 % 0-10 [facility] Blood platelet mean volumeOr dered By: William Menjivar on 10-22-2022 Platelet mean volume (Bld) [Entitic vol] 8.8 fL 6.2-12.0 [facility] Determination of erythrocyte mean corpuscular volume (MCV)Ordered By: William Menjivar on 10-22-2022 MCV (RBC) [Entitic vol] 90.1 fL 80-94 [facility] Erythrocyte sedimentation ra teOrdered By: William Menjivar on 10-22-2022 ESR (Bld) [Velocity] 10 mm/h 0-20 [facility] Hematocrit Auto (Bld) [Volum e fraction]Ordered By: William Menjivar on 10-22-2022 Hematocrit (Bld) [Volume fraction] 46.3 % 40-54 [facility] Iron measurement (mass/mass) Ordered By: William Menjivar on 10-22-2022 Iron (Unsp spec) [Mass/Mass] 75 ug/dL 65-175 [facility] Laboratory - Chemistry and C hemistry - challengeOrdered By: William Menjivar on 10-22-2022 ALP [Catalytic activity/Vol] 98 U/L 45-117 [facility] ALT [Catalytic activity/Vol] 28 U/L 16-61 [facility] CO2 [Moles/Vol] 27.0 mmol/L 21.0-32.0 [facility] Cobalamin (Vitamin B12) [Mass/Vol] 266 pg/mL 211-911 [facility] Globulin (S) [Mass/Vol] 3.0 g/dL 2.2-4.2 [facility] Urea nitrogen/Creatinine [Mass ratio] 12.5 mg/mg 10-20 [facility] Laboratory - Hematology and Cell countsOrdered By: William Menjivar on 10-22-2022 Erythrocyte distribution width (RBC) [Entitic vol] 41.8 fL 35.1-43.9 [facility] Erythrocyte distribution width (RBC) [Ratio] 12.5 % 11.6-14.6 [facility] Immature granulocytes/100 WBC (Bld) 0.300 % 0.0-0.9 [facility] Comment on above: IG% - Immature Granu locytes (promyelocytes, myelocytes and metamyelocytes) > 1% indicates that a LEFT SHIFT is Present. MCH (RBC) [Entitic mass] 30.2 pg 27.0-32.0 [facility] Nucleated RBC/100 WBC (Bld) [Ratio] 0 % 0-5 [facility] MCHC Auto (RBC) [Mass/Vol]Or dered By: William Menjivar on 10-22-2022 MCHC (RBC) [Mass/Vol] 33.5 g/dL 32-[address] [facility] No Panel InformationOrdered By: William Menjivar on 10-22-2022 Anti-Nuclear Antibody Screen Positive Negative [facility] Comment on above: Performed at: [employer] [facility] [employer] [address] [id number] Director: Nino Del Castillo PhD, Phone: [phone] Estimated GFR (MDRD) Amer 119 mL/min >60 [facility] Comment on above: GFR Calc Estimated GFR (MDRD) Non-Af Amer 99 mL/min >60 [facility] Comment on above: Non- GFR Calc Thyroid Stimulating Hormone (TSH) 1.22 uIU/mL 0.358-3.74 [facility] Vitamin D 25-Hydroxy 28.9 ng/mL [facility] Comment on above: Vitamin D 25(OH) Sta tus Range Deficiency <20 ng/mL (50nmol/L) Insufficiency 20 - 30 ng/mL (50 - 75 nmol/L) Sufficiency 30 - 100 ng/mL (75 - 250 nmol/L) Toxicity >100 ng/mL (>250 nmol/L) Platelets bldOrdered By: Blayne Menjivar on 10-22-2022 Platelets (Bld) [#/Vol] 210 10*3/uL 150-450 [facility] Serum or plasma C reactive p rotein measurement (mass/volume)Ordered By: William Menjivar on 10-22-2022 CRP [Mass/Vol] mg/L 0.0-3.0 [facility] Comment on above: C-Reactive Protein ( CRP) provides useful information for thediagnosis, therapy and monitoring of inflammatory processesand associated diseases. For the evaluation of Relative Riskfor Cardiovascular Disease, a High Sensitivity CRP (HSCRP)should be ordered. Serum or plasma albumin ratna urement (mass/volume)Ordered By: William Menjivar on 10-22-2022 Albumin [Mass/Vol] 3.8 g/dL 3.2-5.0 [facility] Serum or plasma albumin/glob ulin mass ratioOrdered By: William Menjivar on 10-22-2022 Albumin/Globulin [Mass ratio] 1.3 {ratio} 0.9-2.4 [facility] Serum or plasma calcium ratna urement (mass/volume)Ordered By: William Menjivar on 10-22-2022 Calcium [Mass/Vol] 8.8 mg/dL 8.5-10.1 [facility] Serum or plasma cholesterol in HDL measurement (mass/volume)Ordered By: William Menjivar on 10-22-2022 Cholesterol in HDL [Mass/Vol] 52 mg/dL >40 [facility] Comment on above: The drugs N-Acetylcy steine and Metamizole may falsely depress this assay. Reference Range HDL <40 mg/dL Low HDL Cholesterol HDL >or= 60 mg/dL High HDL Cholesterol Serum or plasma cholesterol in VLDL measurement (mass/volume)Ordered By: William Menjivar on 10-22-2022 Cholesterol in VLDL [Mass/Vol] 29 mg/dL 5-40 [facility] Serum or plasma creatinine m easurement (mass/volume)Ordered By: William Menjivar on 10-22-2022 Creatinine [Mass/Vol] 0.80 mg/dL 0.70-1.[address] [facility] Comment on above: The validity of the calculated GFR & GFRAA in patients over 70 years has not been determined. Clinical correlation is essential. Serum or plasma ferritin darline surement (mass/volume)Ordered By: William Menjivar on 10-22-2022 Ferritin [Mass/Vol] 168 ng/mL 26-388 [facility] Serum or plasma low density lipoprotein (LDL) cholesterol measurement (mass/volume)Ordered By: William Menjivar on 10-22-2022 Cholesterol in LDL [Mass/Vol] 90 mg/dL 0-130 [facility] Serum or plasma urea nitroge n measurement (mass/volume)Ordered By: William Menjivar on 10-22-2022 Urea nitrogen [Mass/Vol] 10 mg/dL 7-18 [facility] Serum rheumatoid factor dete ctionOrdered By: William Menjivar on 10-22-2022 Rheumatoid factor Ql (S) < 10.0 IU/mL <15 [facility] Thin prep Papanicolaou smear with manual screeningOrdered By: William Menjivar on 10-22-2022 Thin prep Papanicolaou smear with manual screening 20 U/L 15-37 [facility] Thin prep Papanicolaou smear with manual screening 4 5-15 [facility] Emergency Room Note on 09-18-2016 [place] [facility] Note Normal [facility] ([place] .Auto Diffon 09-15-2016 Basophils Auto #/vol (Bld) 0.10 10 3/mcL Normal 0.00-0.19 [facility] ([place] Comment on above: Performed By: #### C BC, ADIFF, ANEU, TROP, GFR, CMP ####[address] [place], [place] [address] Basophils/100 WBC Auto (Bld) 0.7 % Normal 0.0-2.5 [facility] ([place] Comment on above: Performed By: #### C BC, ADIFF, ANEU, TROP, GFR, CMP ####[address] [place], [place] [address] Eosinophils 0.00 10 3/mcL Normal 0.00-0.40 [facility] ([place] Comment on above: Performed By: #### C BC, ADIFF, ANEU, TROP, GFR, CMP ####[address] [place], [place] [address] Eosinophils/100 leukocytes 0.5 % Normal 0.0-7.0 [facility] ([place] Comment on above: Performed By: #### C BC, ADIFF, ANEU, TROP, GFR, CMP ####[address] [place], [place] [address] Lymphocytes 1.90 10 3/mcL Normal 0.77-3.85 [facility] ([place] Comment on above: Performed By: #### C BC, ADIFF, ANEU, TROP, GFR, CMP ####[address] [place], [place] [address] Lymphocytes/100 leukocytes 21.5 % Normal 10.0-50.0 [facility] ([place] Comment on above: Performed By: #### C BC, ADIFF, ANEU, TROP, GFR, CMP ####[address] [place], [place] [address] Monocytes 0.70 10 3/mcL Normal 0.15-1.00 [facility] ([place] Comment on above: Performed By: #### C BC, ADIFF, ANEU, TROP, GFR, CMP ####[address] [place], [place] [address] Monocytes/100 leukocytes 7.5 % Normal 1.7-13.0 [facility] ([place] Comment on above: Performed By: #### C BC, ADIFF, ANEU, TROP, GFR, CMP ####[address] [place], [place] [address] Neutrophils/100 WBC Auto (Bld) 69.8 % Normal 37.0-80.0 [facility] ([place] Comment on above: Performed By: #### C BC, ADIFF, ANEU, TROP, GFR, CMP ####[address] [place], [place] [address] .NEUABSon 09-15-2016 Neutrophils 6.30 10 3/mcL High 2.85-6.16 [facility] ([place] Comment on above: Performed By: #### C BC, ADIFF, ANEU, TROP, GFR, CMP ####[address] [place], [place] [address] CBCon 09-15-2016 Erythrocyte distribution width Auto Ratio (RBC) 13.0 % Normal 11.5-14.5 [facility] ([place] Comment on above: Performed By: #### C BC, ADIFF, ANEU, TROP, GFR, CMP ####[address] [place], [place] [address] Erythrocytes (RBC) 5.10 10 6/mcL Normal 4.04-6.13 [facility] ([place]) Comment on above: Performed By: #### C BC, ADIFF, ANEU, TROP, GFR, CMP ####[address] [place], [place] [address] Hematocrit (HCT) 43.6 % Normal 42.0-52.0 [facility] ([place] Comment on above: Performed By: #### C BC, ADIFF, ANEU, TROP, GFR, CMP ####[address] [place], [place] [address] Hemoglobin mass conc (Bld) 14.9 G/dL Normal 14.0-18.0 [facility] ([place] Comment on above: Performed By: #### C BC, ADIFF, ANEU, TROP, GFR, CMP ####[address] [place], [place] [address] MCH 29.1 pg Normal 27.0-31.2 [facility] ([place] Comment on above: Performed By: #### C BC, ADIFF, ANEU, TROP, GFR, CMP ####[address] [place], [place] [address] MCHC mass conc (RBC) 34.1 G/dL Normal 31.8-35.4 [facility] ([place]) Comment on above: Performed By: #### C BC, ADIFF, ANEU, TROP, GFR, CMP ####[address] [place], [place] [address] MCV 85.5 fL Normal 80.0-94.0 [facility] ([place]) Comment on above: Performed By: #### C BC, ADIFF, ANEU, TROP, GFR, CMP ####[address] [place], [place] [address] Platelet mean volume (PMV) 6.7 fL Low 7.4-10.4 [facility] ([place] Comment on above: Performed By: #### C BC, ADIFF, ANEU, TROP, GFR, CMP ####[address] [place], [place] [address] Platelets 207 10 3/mcL Normal 130-400 [facility] ([place]) Comment on above: Performed By: #### C BC, ADIFF, ANEU, TROP, GFR, CMP ####[address] [place], [place] [address] WBC (Leukocytes) 9.00 10 3/mcL Normal 4.60-10.80 [facility] ([place]) Comment on above: Performed By: #### C BC, ADIFF, ANEU, TROP, GFR, CMP ####[address] [place], [place] [address] CMPon 09-15-2016 BUN/Creatinine Ratio 11 ratio Normal 7-27 [facility] ([place]) Comment on above: Performed By: #### C BC, ADIFF, ANEU, TROP, GFR, CMP ####[address] [place], [place] [address] Creatinine 1.1 mg/dL Normal 0.6-1.2 [facility] ([place] Comment on above: Performed By: #### C BC, ADIFF, ANEU, TROP, GFR, CMP ####[address] [place], [place] [address] Alanine aminotransferase (ALT) 13 ZZ Normal 10-35 [facility] ([place] Comment on above: Performed By: #### C BC, ADIFF, ANEU, TROP, GFR, CMP ####[address] [place], [place] [address] Albumin 4.6 G/dL Normal 3.4-4.8 [facility] ([place] Comment on above: Performed By: #### C BC, ADIFF, ANEU, TROP, GFR, CMP ####[address] [place], [place] [address] Albumin/Globulin Ratio 1.8 {ratio} Normal 1.1-2.5 [facility] ([place]) Comment on above: Performed By: #### C BC, ADIFF, ANEU, TROP, GFR, CMP ####[address] [place], [place] [address] Alk Phos 80 ZZ Normal 40-135 [facility] ([place] Comment on above: Performed By: #### C BC, ADIFF, ANEU, TROP, GFR, CMP ####[address] [place], [place] [address] Aspartate aminotransferase (AST) 14 ZZ Normal 10-40 [facility] ([place]) Comment on above: Performed By: #### C BC, ADIFF, ANEU, TROP, GFR, CMP ####[address] [place], [place] [address] Bili Total 0.7 mg/dL Normal 0.2-1.0 [facility] ([place]) Comment on above: Performed By: #### C BC, ADIFF, ANEU, TROP, GFR, CMP ####[address] [place], [place] [address] Calcium 9.3 mg/dL Normal 8.4-10.2 [facility] ([place] Comment on above: Performed By: #### C BC, ADIFF, ANEU, TROP, GFR, CMP ####[address] [place], [place] [address] CO2 23 mmol/L Normal 23-31 [facility] ([place] Comment on above: Performed By: #### C BC, ADIFF, ANEU, TROP, GFR, CMP ####[address] [place], [place] [address] Electrolyte Balance 10.0 mEq/L Normal [facility] ([place]) Comment on above: Performed By: #### C BC, ADIFF, ANEU, TROP, GFR, CMP ####[address] [place], [place] [address] Globulin 2.5 G/dL Normal [facility] ([place]) Comment on above: Performed By: #### C BC, ADIFF, ANEU, TROP, GFR, CMP ####[address] [place], [place] [address] Glucose mass conc 104 mg/dL Normal 83-110 [facility] ([place] Comment on above: Performed By: #### C BC, ADIFF, ANEU, TROP, GFR, CMP ####[address] [place], [place] [address] Protein 7.1 G/dL Normal 6.0-8.3 [facility] ([place] Comment on above: Performed By: #### C BC, ADIFF, ANEU, TROP, GFR, CMP ####[address] [place], [place] [address] Urea nitrogen 12.6 mg/dL Normal 7.0-18.0 [facility] ([place] Comment on above: Performed By: #### C BC, ADIFF, ANEU, TROP, GFR, CMP ####[address] [place], [place] [address] Chloride 102 mmol/L Normal 98-107 [facility] ([place] Comment on above: Performed By: #### C BC, ADIFF, ANEU, TROP, GFR, CMP ####[address] [place], [place] [address] Potassium molar conc 4.1 mmol/L Normal 3.5-5.1 [facility] ([place]) Comment on above: Performed By: #### C BC, ADIFF, ANEU, TROP, GFR, CMP ####[address] [place], [place] [address] Sodium 135 mmol/L Low 136-146 [facility] ([place] Comment on above: Performed By: #### C BC, ADIFF, ANEU, TROP, GFR, CMP ####[address] [place], [place] [address] CT ABD/PELVIS W/ IV CONTRAST ONLYon 09-15-2016 [...] AM Sign Date: 09/15/2016 12:20:36 AM Normal [facility] ([place]) GFRon 09-15-2016 eGFR (non-black) 79 ml/min/1.73sqm Normal [facility] ([place]) Comment on above: Result Comment: GFR Population [...] ADIFF, ANEU, TROP, GFR, CMP ####[address] [place], [place] [address] eGFR (non-black) mL/min/{1.73_m2} Normal [facility] ([place]) Comment on above: Result Comment: GFR Population [...] BC, ADIFF, ANEU, TROP, GFR, CMP ####Macy [address] [place], [place] [address] LIPon 09-15-2016 Lipase Level 26 ZZ Normal 8-78 [facility] ([place] Comment on above: Performed By: #### C BC, ADIFF, ANEU, TROP, GFR, CMP ####Macyautumn [address] [place], [place] [address] [facility] Note on 09-15-2016 [facility] Note Normal [facility] ([place]) Patient Summary Documentson 09-15-2016 Patient Summary Documents Normal [facility] ([place]) .Auto Diffon 09-12-2016 Basophils Auto #/vol (Bld) 0.00 10 3/mcL Normal 0.00-0.19 [facility] ([place] Comment on above: Performed By: #### C BC, ADIFF, ANEU, TROP, GFR, CMP ####Macy [address] [place], [place] [address] Basophils/100 WBC Auto (Bld) 0.5 % Normal 0.0-2.5 [facility] ([place] Comment on above: Performed By: #### C BC, ADIFF, ANEU, TROP, GFR, CMP ####Macy [address] [place], [place] [address] Eosinophils 0.00 10 3/mcL Normal 0.00-0.40 [facility] ([place]) Comment on above: Performed By: #### C BC, ADIFF, ANEU, TROP, GFR, CMP ####Macy [address] [place], [place] [address] Eosinophils/100 leukocytes 0.4 % Normal 0.0-7.0 [facility] ([place]) Comment on above: Performed By: #### C BC, ADIFF, ANEU, TROP, GFR, CMP ####Macy [address] [place], [place] [address] Lymphocytes 2.50 10 3/mcL Normal 0.77-3.85 [facility] ([place]) Comment on above: Performed By: #### C BC, ADIFF, ANEU, TROP, GFR, CMP ####Macy [address] [place], [place] [address] Lymphocytes/100 leukocytes 28.8 % Normal 10.0-50.0 [facility] ([place] Comment on above: Performed By: #### C BC, ADIFF, ANEU, TROP, GFR, CMP ####Macy [address] [place], [place] [address] Monocytes 0.80 10 3/mcL Normal 0.15-1.00 [facility] ([place] Comment on above: Performed By: #### C BC, ADIFF, ANEU, TROP, GFR, CMP ####Macy [address] [place], [place] [address] Monocytes/100 leukocytes 9.2 % Normal 1.7-13.0 [facility] ([place]) Comment on above: Performed By: #### C BC, ADIFF, ANEU, TROP, GFR, CMP ####Macy [address] [place], [place] [address] Neutrophils/100 WBC Auto (Bld) 61.1 % Normal 37.0-80.0 [facility] ([place] Comment on above: Performed By: #### C BC, ADIFF, ANEU, TROP, GFR, CMP ####Macy [address] [place], [place] [address] .NEUABSon 09-12-2016 Neutrophils 5.30 10 3/mcL Normal 2.85-6.16 [facility] ([place] Comment on above: Performed By: #### C BC, ADIFF, ANEU, TROP, GFR, CMP ####Macy [address] [place], [place] [address] .Urinalysis Microscopic (AO) on 09-12-2016 UA Squam Epithelial 0-5 Abnormal None Seen [facility] ([place]) Comment on above: Performed By: #### U A, UAMICAO ####Macy [address] [place], [place] [address] UA WBC None Seen Normal None Seen [facility] ([place] Comment on above: Performed By: #### U A, UAMICAO ####Macy [address] [place] [id number] Urine, erythrocytes None Seen Normal None Seen [facility] ([place] Comment on above: Performed By: #### U A, UAMICAO ####Macy [address] [place] [id number] CBCon 09-12-2016 Erythrocyte distribution width Auto Ratio (RBC) 12.9 % Normal 11.5-14.5 [facility] ([place] Comment on above: Performed By: #### C BC, ADIFF, ANEU, TROP, GFR, CMP ####Macy [address] [place], [place] [address] Erythrocytes (RBC) 4.97 10 6/mcL Normal 4.04-6.13 [facility] ([place]) Comment on above: Performed By: #### C BC, ADIFF, ANEU, TROP, GFR, CMP ####Macy [address] [place], [place] [address] Hematocrit (HCT) 42.2 % Normal 42.0-52.0 [facility] ([place]) Comment on above: Performed By: #### C BC, ADIFF, ANEU, TROP, GFR, CMP ####Steuben [address] [place], [place] [address] Hemoglobin mass conc (Bld) 14.5 G/dL Normal 14.0-18.0 [facility] ([place] Comment on above: Performed By: #### C BC, ADIFF, ANEU, TROP, GFR, CMP ####Macy [address] [place] [phone] MCH 29.3 pg Normal 27.0-31.2 [facility] ([place] Comment on above: Performed By: #### C BC, ADIFF, ANEU, TROP, GFR, CMP ####Macy [address] [place] [phone] MCHC mass conc (RBC) 34.4 G/dL Normal 31.8-35.4 [facility] ([place]) Comment on above: Performed By: #### C BC, ADIFF, ANEU, TROP, GFR, CMP ####Macy [address] [place], [place] [id number] MCV 85.0 fL Normal 80.0-94.0 [facility] ([place]) Comment on above: Performed By: #### C BC, ADIFF, ANEU, TROP, GFR, CMP ####Macy [address] [place], [place] [address] Platelet mean volume (PMV) 6.8 fL Low 7.4-10.4 [facility] ([place] Comment on above: Performed By: #### C BC, ADIFF, ANEU, TROP, GFR, CMP ####Macy [address] [place], [place] [address] Platelets 196 10 3/mcL Normal 130-400 [facility] ([place] Comment on above: Performed By: #### C BC, ADIFF, ANEU, TROP, GFR, CMP ####Macy [address] [place], [place] [address] WBC (Leukocytes) 8.70 10 3/mcL Normal 4.60-10.80 [facility] ([place]) Comment on above: Performed By: #### C BC, ADIFF, ANEU, TROP, GFR, CMP ####Macy [address] [place], [place] [address] CMPon 09-12-2016 Aspartate aminotransferase (AST) 15 ZZ Normal 10-40 [facility] ([place] Comment on above: Performed By: #### C BC, ADIFF, ANEU, TROP, GFR, CMP ####Macy [address] [place], [place] [address] Alanine aminotransferase (ALT) 14 ZZ Normal 10-35 [facility] ([place] Comment on above: Performed By: #### C BC, ADIFF, ANEU, TROP, GFR, CMP ####Macy [address] [place], [place] [address] Alk Phos 74 ZZ Normal 40-135 [facility] ([place] Comment on above: Performed By: #### C BC, ADIFF, ANEU, TROP, GFR, CMP ####Macy [address] [place], [place] [address] Glucose mass conc 96 mg/dL Normal 83-110 [facility] ([place]) Comment on above: Performed By: #### C BC, ADIFF, ANEU, TROP, GFR, CMP ####Macy [address] [place], [place] [address] Albumin/Globulin Ratio 1.9 {ratio} Normal 1.1-2.5 [facility] ([place]) Comment on above: Performed By: #### C BC, ADIFF, ANEU, TROP, GFR, CMP ####Macy [address] [place], [place] [address] Globulin 2.3 G/dL Normal [facility] ([place]) Comment on above: Performed By: #### C BC, ADIFF, ANEU, TROP, GFR, CMP ####Macy [address] [place], [place] [address] Protein 6.6 G/dL Normal 6.0-8.3 [facility] ([place]) Comment on above: Performed By: #### C BC, ADIFF, ANEU, TROP, GFR, CMP ####Macy [address] [place], [place] [address] Chloride 101 mmol/L Normal 98-107 [facility] ([place]) Comment on above: Performed By: #### C BC, ADIFF, ANEU, TROP, GFR, CMP ####Macy [address] [place], [place] [address] Electrolyte Balance 11.0 mEq/L Normal [facility] ([place]) Comment on above: Performed By: #### C BC, ADIFF, ANEU, TROP, GFR, CMP ####Macyrazia [address] [place] [phone] Potassium molar conc 4.2 mmol/L Normal 3.5-5.1 [facility] ([place]) Comment on above: Performed By: #### C BC, ADIFF, ANEU, TROP, GFR, CMP ####Macy [address] [place] [address] Sodium 135 mmol/L Low 136-146 [facility] ([place]) Comment on above: Performed By: #### C BC, ADIFF, ANEU, TROP, GFR, CMP ####Macy [address] [place] [address] Bili Total 0.8 mg/dL Normal 0.2-1.0 [facility] ([place]) Comment on above: Performed By: #### C BC, ADIFF, ANEU, TROP, GFR, CMP ####Macy [address] [place] [address] BUN/Creatinine Ratio 14 ratio Normal 7-27 [facility] ([place]) Comment on above: Performed By: #### C BC, ADIFF, ANEU, TROP, GFR, CMP ####Macy [address] [place] [address] Calcium 8.9 mg/dL Normal 8.4-10.2 [facility] ([place]) Comment on above: Performed By: #### C BC, ADIFF, ANEU, TROP, GFR, CMP ####Macy [address] [place] [phone] CO2 23 mmol/L Normal 23-31 [facility] ([place]) Comment on above: Performed By: #### C BC, ADIFF, ANEU, TROP, GFR, CMP ####Macy [address] [place] [phone] Creatinine 1.0 mg/dL Normal 0.6-1.2 [facility] ([place]) Comment on above: Performed By: #### C BC, ADIFF, ANEU, TROP, GFR, CMP ####Macy [address] [place], [place] [address] Albumin 4.3 G/dL Normal 3.4-4.8 [facility] ([place]) Comment on above: Performed By: #### C BC, ADIFF, ANEU, TROP, GFR, CMP ####Macy [address] [place], [place] [address] Urea nitrogen 13.9 mg/dL Normal 7.0-18.0 [facility] ([place]) Comment on above: Performed By: #### C BC, ADIFF, ANEU, TROP, GFR, CMP ####Macy [address] [place], [place] [address] CT HEAD OR BRAIN W/O CONTRAS Ton [...] PM Sign Date: 09/12/2016 5:53:51 PM Normal [facility] ([place]) GFRon 09-12-2016 eGFR (non-black) mL/min/{1.73_m2} Normal [facility] ([place]) Comment on above: Result Comment: GFR Population [...] ADIFF, ANEU, TROP, GFR, CMP ####Macy [address] [place], [place] [address] eGFR (non-black) 91 ml/min/1.73sqm Normal [facility] ([place]) Comment on above: Result Comment: GFR Population [...] BC, ADIFF, ANEU, TROP, GFR, CMP ####Macy [address] [place], [place] [address] Patient Summary Documentson 09-12-2016 Patient Summary Documents Normal [facility] ([place]) TROPon 09-12-2016 Troponin I.cardiac mass conc ng/mL Normal 0.00-0.30 [facility] ([place]) Comment on above: Result Comment: Belo w measuring range>=0.30 Consistent with cardiac damage, increased clinical risk and possibility of myocardial infarction. Serial measurements, clinical history, appropriate symptoms and/or ECG changes may help assess possibility of MA.*Other non-acute coronary syndrome conditions such as CHF, myocarditis, pulmonary emboli, sepsis and cardiac surgery could result in myocardial damage and increased troponin levels. Performed By: #### C BC, ADIFF, ANEU, TROP, GFR, CMP ####Macy [address] [place] [address] UAon 09-12-2016 UA Appear CLEAR [facility] ([place]) Comment on above: Performed By: #### U A, UAMICAO ####Macy [address] [place] [address] UA Blood Negative [facility] ([place]) Comment on above: Performed By: #### U A, UAMICAO ####Macy [address] [place] [address] UA Leuk Est Negative [facility] ([place]) Comment on above: Performed By: #### U A, UAMICAO ####Macy [address] [place] [address] UA Nitrite Negative [facility] ([place]) Comment on above: Performed By: #### U A, UAMICAO ####Macy [address] [place] [address] UA pH 5.5 [facility] ([place]) Comment on above: Performed By: #### U A, UAMICAO ####Macy [address] [place] [address] UA Protein Negative [facility] ([place]) Comment on above: Performed By: #### U A, UAMICAO ####Macy [address] [place] [id number] UA Spec Grav 1.020 [facility] ([place]) Comment on above: Performed By: #### U A, UAMICAO ####Macy [address] [place] [address] UA Specimen Type Clean Catch [facility] ([place]) Comment on above: Performed By: #### U A, UAMICAO ####Macy [address] [place], [place] [address] UA Urobilinogen 0.2 E.U./dL Normal [facility] ([place]) Comment on above: Performed By: #### U A, UAMICAO ####Macy [address] [place], [place] [address] Urine, color YELLOW Normal [facility] ([place]) Comment on above: Performed By: #### U A, UAMICAO ####Macy [address] [place], [place] [address] Urine, glucose Negative Normal [facility] ([place]) Comment on above: Performed By: #### U A, UAMICAO ####Macy [address] [place], [place] [address] Urine, ketones presence 40 mg/dL Abnormal Negative [facility] ([place]) Comment on above: Performed By: #### U A, UAMICAO ####Macy [address] [place], [place] [address] Urine, urobilinogen Negative Normal [facility] ([place]) Comment on above: Performed By: #### U A, UAMICAO ####Macy [address] [place], [place] [address] XR CHEST 1 VIEWon 09-12-2016 XR CHEST [...] PM Sign Date: 09/12/2016 5:55:03 PM Normal [facility] ([place]) Vital Signs Date Time Vital Sign Value Performing Clinician Bami luz 08-11-2024 14:00-0400 Diastolic blood pressure 84 mm[Hg] Dr. Kwabena Menjivar MD Work Phone: [facility] 08-11-2024 14:00-0400 Heart rate 60 /min Dr. Kwabena Menjivar MD Work Phone: [facility] 08-11-2024 14:00-0400 Respiratory rate 14 /min Dr. Kwabena Menjivar MD Work Phone: [facility] 08-11-2024 14:00-0400 SaO2% (BldA) [Mass fraction] 94 % Dr. Kwabena Menjivar MD Work Phone: [facility] 08-11-2024 14:00-0400 Systolic blood pressure 158 mm[Hg] Dr. Kwabena Menjivar MD Work Phone: [facility] 08-11-2024 13:57-0400 Body temperature 98 [degF] Dr. Kwabena Menjivar MD Work Phone: [facility] 08-11-2024 09:03-0400 Body height 172.[address] Kwabena Menjivar MD Work Phone: [facility] 08-11-2024 09:03-0400 Body mass index (BMI) [Ratio] 24 kg/m2 Dr. Kwabena Menjivar MD Work Phone: [facility] 08-11-2024 09:03-0400 Body weight 71.[address] Kwabena Menjivar MD Work Phone: [facility] 08-09-2024 08:00-0400 Body temperature 97.9 [degF] Dr. Kwabena Menjivar MD Work Phone: [facility] 08-09-2024 08:00-0400 Diastolic blood pressure 63 mm[Hg] Dr. Kwabena Menjivar MD Work Phone: [facility] 08-09-2024 08:00-0400 Heart rate 73 /min Dr. Kwabena Menjivar MD Work Phone: [facility] 08-09-2024 08:00-0400 Respiratory rate 18 /min Dr. Kwabena Menjivar MD Work Phone: [facility] 08-09-2024 08:00-0400 SaO2% (BldA) [Mass fraction] 95 % Dr. Kwabena Menjivar MD Work Phone: [facility] 08-09-2024 08:00-0400 Systolic blood pressure 108 mm[Hg] Dr. Kwabena Menjivar MD Work Phone: [facility] 08-06-2024 10:33-0400 Body height 172.[address] Kwabena Menjivar MD Work Phone: 5(248)154-954075 [place] [address] 08-06-2024 10:33-0400 Body weight 71.[address] Kwabena Menjivar MD Work Phone: 7(339)267-665623 [address] 08-05-2024 16:32-0400 Body mass index (BMI) [Ratio] 24 kg/m2 Dr. Kwabena Menjivar MD Work Phone: [facility] 08-05-2024 15:59-0400 Body temperature 97.9 [degF] Dr. Kwabena Menjivar MD Work Phone: [facility] 08-05-2024 15:59-0400 Diastolic blood pressure 74 mm[Hg] Dr. Kwabena Menjivar MD Work Phone: [facility] 08-05-2024 15:59-0400 Heart rate 75 /min Dr. Kwabena Menjivar MD Work Phone: [facility] 08-05-2024 15:59-0400 Respiratory rate 16 /min Dr. Kwabena Menjivar MD Work Phone: [facility] 08-05-2024 15:59-0400 SaO2% (BldA) [Mass fraction] 98 % Dr. Kwabena Menjivar MD Work Phone: [facility] 08-05-2024 15:59-0400 Systolic blood pressure 108 mm[Hg] Dr. Kwabena Menjivar MD Work Phone: [facility] 08-05-2024 12:43-0400 Body mass index (BMI) [Ratio] 24.7 kg/m2 Dr. Kwabena Menjivar MD Work Phone: 7(103)735-248275 [place] [address] 08-05-2024 12:43-0400 Body weight [address] Kwabena Menjivar MD Work Phone: 9(317)724-397917 [place] [address] 08-05-2024 11:33-0400 Body height 172.[address] Kwabena eMnjivar MD Work Phone: 7(195)072-333917 [place] [address] 07-27-2024 17:38-0400 Body height 172.[address] Kwabena Menjivar MD Work Phone: 9(580)513-253417 [place] [address] 05-25-2024 13:01-0400 Body height 172.[address] Kwabena Menjivar MD Work Phone: 8(168)518-729017 [place] [address] 05-25-2024 13:01-0400 Body mass index (BMI) [Ratio] 23.1 kg/m2 Dr. Kwabena Menjivar MD Work Phone: 9(107)598-771317 [place] [address] 05-25-2024 13:01-0400 Body weight 68.[address] Kwabena Menjivar MD Work Phone: 8(173)802-146717 [place] [address] 05-25-2024 13:01-0400 Diastolic blood pressure 52 mm[Hg] Dr. Kwabena Menjivar MD Work Phone: 8(012)339-155417 [place] [address] 05-25-2024 13:01-0400 Heart rate 73 /min Dr. Kwabena Menjivar MD Work Phone: 2(912)851-127517 [place] [address] 05-25-2024 13:01-0400 Respiratory rate 16 /min Dr. Kwabena Menjivar MD Work Phone: 3(734)272-653217 [place] [address] 05-25-2024 13:01-0400 SaO2% (BldA) [Mass fraction] 96 % Dr. Kwabena Menjivar MD Work Phone: 6(036)622-973875 [place] [address] 05-25-2024 13:01-0400 Systolic blood pressure 82 mm[Hg] Dr. Kwabena Menjivar MD Work Phone: 1(155)066-002775 [place] [address] 05-20-2024 09:20-0400 Diastolic blood pressure 67 mm[Hg] Dr. Kwabena Menjivar MD Work Phone: 3(392)075-343375 [place] [address] 05-20-2024 09:20-0400 Heart rate 59 /min Dr. Kwabena Menjivar MD Work Phone: 3(934)342-359317 [place] [address] 05-20-2024 09:20-0400 Systolic blood pressure 136 mm[Hg] Dr. Kwabena Menjivar MD Work Phone: 7(183)783-645017 [place] [address] 05-20-2024 06:00-0400 Body mass index (BMI) [Ratio] 24.3 kg/m2 Dr. Kwabena Menjivar MD Work Phone: 3(529)289-702317 [place] [address] 05-20-2024 06:00-0400 Body temperature 97.2 [degF] Dr. Kwabena Menjivar MD Work Phone: 0(716)627-364317 [place] [address] 05-20-2024 06:00-0400 Body weight [address] Kwabena Menjivar MD Work Phone: 5(056)739-536417 [place] [address] 05-20-2024 06:00-0400 Respiratory rate 16 /min Dr. Kwabena Menjivar MD Work Phone: 0(100)078-189317 [place] [address] 05-20-2024 06:00-0400 SaO2% (BldA) [Mass fraction] 97 % Dr. Kwabena Menjivar MD Work Phone: 9(014)629-967775 [place] [address] 05-12-2024 08:43-0400 Body height [address] Kwabena Menjivar MD Work Phone: 1(285)039-488517 [place] [address] 04-27-2024 14:23-0400 Body temperature 97.8 [degF] Dr. Kwabena Menjivar MD Work Phone: 4(203)242-365417 [place] [address] 04-27-2024 14:23-0400 Diastolic blood pressure 64 mm[Hg] Dr. Kwabena Menjivar MD Work Phone: 3(241)096-123317 [place] [address] 04-27-2024 14:23-0400 Heart rate 65 /min Dr. Kwabena Menjivar MD Work Phone: 9(224)359-249775 [place] [address] 04-27-2024 14:23-0400 Respiratory rate 18 /min Dr. Kwabena Menjivar MD Work Phone: 3(544)988-066117 [place] [address] 04-27-2024 14:23-0400 SaO2% (BldA) [Mass fraction] 92 % Dr. Kwabena Menjivar MD Work Phone: 5(890)708-464417 [place] [address] 04-27-2024 14:23-0400 Systolic blood pressure 126 mm[Hg] Dr. Kwabena Menjivar MD Work Phone: 1(529)619-753917 [place] [address] 04-26-2024 18:24-0400 Inhaled oxygen flow rate 3 L/min Dr. Kwabena Menjivar MD Work Phone: 9(547)948-016317 [place] [address] 04-26-2024 15:54-0400 Body height 172.[address] Kwabena Menjivar MD Work Phone: 9(796)764-284617 [place] [address] 04-26-2024 15:54-0400 Body mass index (BMI) [Ratio] 25.3 kg/m2 Dr. Kwabena Menjivar MD Work Phone: 6(450)175-270417 [place] [address] 04-26-2024 15:54-0400 Body weight 75.[address] Kwbaena Menjivar MD Work Phone: 6(272)651-370317 [place] [address] 04-19-2024 13:05-0400 Body temperature 97.8 [degF] Dr. Kwabena Menjivar MD Work Phone: 4(078)367-937617 [place] [address] 04-19-2024 13:05-0400 Diastolic blood pressure 75 mm[Hg] Dr. Kwabena Menjivar MD Work Phone: 3(090)047-849817 [place] [address] 04-19-2024 13:05-0400 Heart rate 65 /min Dr. Kwabena Menjivar MD Work Phone: 3(869)031-277117 [place] [address] 04-19-2024 13:05-0400 Respiratory rate 16 /min Dr. Kwabena Menjivar MD Work Phone: [facility] 04-19-2024 13:05-0400 SaO2% (BldA) [Mass fraction] 99 % Dr. Kwabena Menjivar MD Work Phone: [facility] 04-19-2024 13:05-0400 Systolic blood pressure 133 mm[Hg] Dr. Kwabena Menjivar MD Work Phone: 1(854)392-063275 [place] [address] 04-19-2024 10:47-0400 Body height 172.[address] Kwabena Menjivar MD Work Phone: 7(382)560-664217 [place] [address] 04-19-2024 10:47-0400 Body mass index (BMI) [Ratio] 23.9 kg/m2 Dr. Kwabena Menjivar MD Work Phone: 0(828)572-016917 [place] [address] 04-19-2024 10:47-0400 Body weight 71.[address] Kwabena Menjivar MD Work Phone: 3(658)484-253517 [place] [address] 02-26-2024 12:31-0500 Body temperature 98.6 [degF] Dr. Kwabena Menjivar MD Work Phone: 7(506)253-398717 [place] [address] 02-26-2024 12:31-0500 Diastolic blood pressure 85 mm[Hg] Dr. Kwabena Menjivar MD Work Phone: 9(682)562-765417 [place] [address] 02-26-2024 12:31-0500 Heart rate 62 /min Dr. Kwabena Menjivar MD Work Phone: 0(313)224-029823 [address] 02-26-2024 12:31-0500 Respiratory rate 16 /min Dr. Kwabena Menjivar MD Work Phone: 2(992)554-007223 [address] 02-26-2024 12:31-0500 SaO2% (BldA) [Mass fraction] 99 % Dr. Kwabena Menjivar MD Work Phone: 4(028)253-717723 [address] 02-26-2024 12:31-0500 Systolic blood pressure 164 mm[Hg] Dr. Kwabena Menjivar MD Work Phone: 1(114)286-174023 [address] 02-26-2024 09:48-0500 Body mass index (BMI) [Ratio] 25.8 kg/m2 Dr. Kwabena Menjivar MD Work Phone: [facility] 02-26-2024 09:48-0500 Body weight 77.[address] Kwabena Menjivar MD Work Phone: [facility] Encounters Encounter Date Encounter Type Care Provider Facility Start: 09-04-2024 ambulatory Kwabena Fuller lity:[facility] Start: 09-04-2024 Keven Montana Renuka - [facility] Start: 08-29-2024 End: 08-29-[address] Kwabena Menjivar MD Work Phone: -[facility] Start: 08-29-2024 End: 08-29-2024 Dr. Keven Etienne MD -[facility] Work Phone: Start: 08-17-2024 ambulatory Kwabena Fuller lity:[facility] Start: 08-14-2024 End: 08-14-[address] Kwabena Menjivar MD Work Phone: [facility] Start: 08-14-2024 End: 08-14-2024 Keven MontanaWHRenuka - [place] Start: 08-11-2024 End: 08-11-2024 Dr. Kwabena Menjivar MD Work Phone: -Emergency Department Work Phone: Start: 08-11-2024 End: 08-11-2024 Emergency department patient visit Dr. Kwabena Menjivar MD Work Phone: -Emergency Department Start: 08-09-2024 Dr. Jacoby Mendoza MD -[facility] Work Phone: Start: 08-08-2024 Dr. Jacoby Mendoza MD -[facility] Work Phone: Start: 08-06-2024 Dr. Keanu escamilla DO -[facility] Work Phone: Start: 08-06-2024 ambulatory Yu Bradley Facility:[facility] Start: 08-06-2024 End: 08-09-2024 Evaluation and management of inpatient Dr. Kwabena Menjivar MD Work Phone: -[facility] Start: 08-06-2024 End: 08-09-2024 Dr. Jacoby Mendoza MD -[facility] Work Phone: Start: 08-05-2024 ambulatory Yu Bradley Facility:[facility] Start: 08-05-[address] Akhil Menjivar MD Work Phone: -[facility] Start: 08-05-2024 Dr. Yu Bradley MD -[facility] Work Phone: Start: 08-03-2024 End: 08-03-2024 Dr. David Granados MD -[facility] Start: 08-03-2024 End: 08-03-[address] Kwabena Menjivar MD Work Phone: [facility] Work Phone: Start: 07-20-2024 End: 07-20-[address] Kwabena Menjivar MD Work Phone: [facility] Work Phone: Start: 07-20-2024 End: 07-20-2024 Dr. Kwabena Menjivar MD -[facility] Start: 07-20-2024 End: 07-20-2024 ambulatory Kwabena Menjivar Facility:[facility] Start: 07-11-2024 ambulatory Keven Etienne OLS Fa cility:[facility] Start: 07-11-2024 Keven Nuno Start: 07-04-2024 ambulatory Efremedios Etienne OLS Fa cility:[facility] Start: 07-04-2024 Keven Nuno Start: 06-27-2024 ambulatory Kwabena Menjivar Faci lity:[facility] Start: 06-26-2024 ambulatory Keven KIRKPATRICK Fa cility:[facility] Start: 06-26-2024 Keven Nuno Start: 06-21-2024 End: 06-21-[address] Kwabena Menjivar MD Work Phone: [facility] Start: 06-21-2024 End: 06-21-2024 Angelika LAUREN [facility] Work Phone: Start: 06-19-2024 ambulatory Keven KIRKPATRICK Fa cility:[facility] Start: 06-19-2024 Keven Nuno Start: 06-12-2024 End: 06-12-[address] Kwabena Menjivar MD Work Phone: [facility] Start: 06-12-2024 End: 06-12-2024 Keven Nuno Start: 06-05-2024 ambulatory Keven KIRKPATRICK Fa cility:[facility] Start: 06-05-2024 Keven Nuno Start: 06-01-2024 End: 06-01-2024 Dr. Ciro Diego MD -[facility] Work Phone: Start: 06-01-2024 End: 06-01-2024 ambulatory Ciro Diego Facility:[facility] [place] [place] Start: 05-30-2024 End: 05-30-[address] Kwabena Menjivar MD Work Phone: [facility] Work Phone: Start: 05-30-2024 End: 05-30-2024 Angelika LAUREN [facility] ome Work Phone: Start: 05-29-2024 ambulatory Keven Etienne OLS Fa cility:[facility] Start: 05-29-2024 Registered Referred Keven Nuno Start: 05-29-2024 Keven Nuno Start: 05-25-2024 End: 05-25-2024 Patient encounter procedure Sonia Isbell YIELD ENGINEER-C -Radiology, [facility] Work Phone: Start: 05-25-2024 End: 05-25-[address] Kwabena Menjivar MD Work Phone: [facility] Work Phone: Start: 05-25-2024 End: 05-25-2024 Sonia Isbell YIELD ENGINEER-C -Radiology [facility] Work Phone: Start: 05-25-2024 End: 05-25-2024 Patient encounter procedure Sonia Isbell NP-C -[facility] Work Phone: Start: 05-25-2024 End: 05-25-2024 Sonia Isbell NP-C -[facility] Work Phone: Start: 05-25-2024 End: 05-25-2024 ambulatory Sonia Isbell Facility:[facility] [place] [place] Start: 05-25-2024 End: 05-25-2024 ambulatory Sonia Isbell Facility:[facility] Start: 05-23-2024 End: 05-23-[address] Kwabena Menjivar MD Work Phone: [facility] Work Phone: Start: 05-23-2024 End: 05-23-2024 Dr. Keevn Etienne MD -[facility] Work Phone: Start: 05-22-2024 End: 05-22-[address] Kwabena Menjivar MD Work Phone: [facility] Work Phone: Start: 05-22-2024 Registered Referred Keven Nuno Start: 05-22-2024 End: 05-22-2024 Keven Nuno Start: 05-11-2024 Non-patient / [facility] Start: 05-11-2024 [facility] Start: 05-09-2024 Non-patient / Non-visit Dr. Corazon Wright [facility] Work Phone: Start: 05-09-2024 Dr. Corazon Wright [facility] Work Phone: Start: 05-08-2024 Non-patient / Non-visit Dr. Corazon Wright [facility] Work Phone: Start: 05-08-2024 Dr. Corazon Wright [facility] Work Phone: Start: 05-05-2024 Non-patient / Non-visit Dr. Corazon Wright [facility] Work Phone: Start: 05-05-2024 Dr. Corazon Wright [facility] Work Phone: Start: 05-03-2024 Non-patient / Non-visit Dr. Corazon Wright [facility] Work Phone: Start: 05-03-2024 Dr. Corazon Wright [facility] Work Phone: Start: 05-02-2024 Non-patient / Non-visit Dr. Corazon Wright [facility] Work Phone: Start: 05-02-2024 Dr. Corazon Wright [facility] Work Phone: Start: 05-01-2024 Non-patient / Non-visit Dr. Corazon Wright [facility] Work Phone: Start: 05-01-2024 Dr. Corazon Wright [facility] Work Phone: Start: 04-30-2024 End: 04-30-2024 [facility] Start: 04-30-2024 End: 04-30-2024 Non-patient / Non-visit Dr. David Granados MD [facility] Work Phone: Start: 04-30-2024 End: 04-30-2024 Dr. David Granados MD -[facility] Work Phone: Start: 04-28-2024 Non-patient / Non-visit Dr. Corazon Wright [facility] Work Phone: Start: 04-28-2024 Dr. Corazon Wright [facility] Work Phone: Start: 04-27-2024 [facility] / [facility] Start: 04-27-2024 [facility] Start: 04-27-[address] [facility] lity[facility] Start: 04-27-2024 End: 05-20-2024 Evaluation and management of inpatient Dr. Corazon Wright -Rehab Unit Work Phone: Start: 04-27-2024 End: 05-20-2024 [facility] Start: 04-27-2024 Non-patient / Non-visit Dr. Harish Baxter MD -[place] [facility] Work Phone: Start: 04-27-2024 Dr. Harish Baxter MD [facility] Work Phone: Start: 04-26-2024 Non-patient / Non-visit Dr. Harish Baxter MD [facility] Work Phone: Start: 04-26-2024 Dr. Harish Batxer MD [facility] Work Phone: Start: 04-26-2024 Non-patient / [facility] Start: 04-26-2024 [facility] Start: 04-25-2024 Non-patient / [facility] Work [facility]: Start: 04-25[facility]2024 [facility] Start: 04-24-2024 Non-patient / Non-visit Dr. Harish Baxter MD [facility] Work Phone: Start: 04-24[facility]2024 [facility] Start: 04-24-2024 End: 04-24-2024 ambulatory David Granados Facility:[facility] [place] [place] Start: 04-24-2024 End: 04-24-2024 Non-patient / Non-visit Dr. David Granados MD [facility] Work Phone: Start: 04-24-2024 End: 04-24-2024 Dr. David Granados MD [facility] Work Phone: Start: 04-23-2024 Non-patient / Non-visit Dr. Keanu Alfred [facility] Work Phone: Start: 04-23-2024 Dr. Keanu Alfred [facility] Work Phone: Start: 04-22-2024 Non-patient / Non-visit Dr. Keanu Alfred [facility] Work Phone: Start: 04-22-2024 Dr. Keanu Alfred [facility] Work Phone: Start: 04-21-2024 Non-patient / [facility] Start: 04-21-2024 [facility] Start: 04-21-2024 ambulatory Kwabena [facility] Start: 04-21-2024 Non-patient / Non-visit Dr. Keaun Alfred [facility] Work Phone: Start: 04-21-2024 Dr. Keanu CAMACHOWo [facility]eg[facility] Work Phone: Start: 04-20-2024 ambulatory Yas Godinez [facility] Start: 04-20-2024 End: 04-27-2024 Evaluation and management of inpatient Dr. Harish Baxter MD -[facility] Unit Work Phone: Start: 04-20-2024 End: 04-27-2024 Dr. Harish Baxter MD -[facility] Work Phone: Start: 04-20-2024 Non-patient / Non-visit Dr. Keanu Alfred DO -[facility] Work Phone: Start: 04-20-2024 Dr. Keanu CAMACHOWo [facility] Work Phone: Start: 04-19-2024 [facility] Start: 04-19-2024 Evaluation and management of inpatient Dr. Keanu Alfred DO -Pro[facility] Unit Work Phone: Start: 04-19-2024 Non-patient / Non-visit Dr. Danette Sargent MD -[facility] Start: 04-19-[address] Akhil Menjivar MD Work Phone: [facility] Work Phone: Start: 04-19-2024 Dr. Danette Sargent MD -[facility] Start: 03-08-2024 End: 03-08-[address] David Granados MD -[facility] Start: 03-08-2024 End: 03-08-2024 [facility] Start: 02-26-2024 End: 02-26-2024 Emergency department patient visit Dr. Asher Flores MD -Emergency Department Work Phone: Start: 10-22-2022 End: 10-22-2022 ambulatory [facility] Work Phone: Start: 10-22-2022 End: 10-22-2022 Patient encounter procedure [facility]-Laboratory, [place] Work Phone: Start: 10-14-2022 End: 10-14-2022 ambulatory [facility] Work Phone: Start: 10-14-2022 End: 10-14-2022 Discharged Recurring [facility]-Physical Therapy Work Phone: Start: 08-24-2022 End: 08-24-2022 ambulatory [facility] Work Phone: Start: 08-24-2022 End: 08-24-2022 Patient encounter procedure [facility]-Radiology, [place] Work Phone: Start: 09-14-2016 End: 09-15-2016 Emergency department patient visit BAO CERVANTES Facility: Start: 09-12-2016 End: 09-12-2016 Emergency department patient visit JORGE L CARTER Facility:[facility] Procedures Date Procedure Procedure Detail Performing Clinician Start: 09-04-2024 Blood count smear mc rscp w/mnl difrntl wbc count Dr. Kwabena Menjivar MD Work Phone: Start: 09-04-2024 Mean corpuscular hem oglobin concentration determination Dr. Kwabena Menjivar MD Work Phone: Start: 09-04-2024 Nucleated red blood cell count procedure Dr. Kwabena Menjivar MD Work Phone: Start: 09-04-2024 Platelet mean volume determination Dr. Kwabena Menjivar MD Work Phone: Start: 08-14-2024 Blood count smear mc rscp w/mnl difrntl wbc count Dr. Kwabena Menjivar MD Work Phone: Start: 08-14-2024 Mean corpuscular hem oglobin concentration determination Dr. Kwabena Menjivar MD Work Phone: Start: 08-14-2024 Nucleated red blood cell count procedure Dr. Kwabena Menjivar MD Work Phone: Start: 08-14-2024 Platelet mean volume determination Dr. Kwabena Menjivar MD Work Phone: Start: 08-11-2024 Urine microscopy: red cells Dr. Kwabena Menjivar MD Work Phone: Start: 08-11-2024 Urnls dip stick/tabl et reagent auto microscopy Dr. Kwabena Menjivar MD Work Phone: Start: 08-11-2024 Blood count smear mc rscp w/mnl difrntl wbc count Dr. Kwabena Menjivar MD Work Phone: Start: 08-11-[address] Kwabena Menjivar MD Work Phone: Start: 08-11-2024 Mean corpuscular hem oglobin concentration determination Dr. Kwabena Menjivar MD Work Phone: Start: 08-11-2024 Nucleated red blood cell count procedure Dr. Kwabena Menjivar MD Work Phone: Start: 08-11-2024 Platelet mean volume determination Dr. Kwabena Menjivar MD Work Phone: Start: 08-11-2024 CT of head without contrast Dr. Kwabena Menjivar MD Work Phone: Start: 08-06-2024 Blood count smear mc rscp w/mnl difrntl wbc count Dr. Kwabena Menjivar MD Work Phone: Start: 08-06-[address] Kwbaena Menjivar MD Work Phone: Start: 08-06-2024 Mean corpuscular hem oglobin concentration determination Dr. Kwabena Menjivar MD Work Phone: Start: 08-06-2024 Nucleated red blood cell count procedure Dr. Kwabena Menjivar MD Work Phone: Start: 08-06-2024 Platelet mean volume determination Dr. Kwabena Menjivar MD Work Phone: Start: 08-05-2024 Urine microscopy: red cells Dr. Kwabena Menjivar MD Work Phone: Start: 08-05-2024 Urnls dip stick/tabl et reagent auto microscopy Dr. Kwabena Menjivar MD Work Phone: Start: 08-05-2024 End: 08-05-[address] Kwabena fried MD Work Phone: Start: 08-05-2024 CT cervical spine wi thout contrast Dr. Kwabena Menjivar MD Work Phone: Start: 08-05-2024 CT of head without contrast Dr. Kwabena Menjivar MD Work Phone: Start: 08-05-[address] Kwabena Menjivar MD Work Phone: Start: 08-05-2024 Mean corpuscular hem oglobin concentration determination Dr. Kwabena Menjivar MD Work Phone: Start: 08-05-2024 Nucleated red blood cell count procedure Dr. Kwabena Menjivar MD Work Phone: Start: 08-05-2024 Platelet mean volume determination Dr. Kwabena Menjivar MD Work Phone: Start: 08-05-2024 [address] se measurement Dr. Kwabena Menjivar MD Work Phone: Start: 08-03-2024 X-ray of cervical spine Dr. Kwabena Menjivar MD Work Phone: Start: 07-20-2024 Plain x-ray of wrist Dr Evette Menjivar MD Work Phone: Start: 07-20-2024 Blood count smear mc rscp w/mnl difrntl wbc count Dr. Kwabena Menjivar MD Work Phone: Start: 07-20-2024 Mean corpuscular hem oglobin concentration determination Dr. Kwabena Menjivar MD Work [...] MD Work Phone: Start: 07-11-2024 Mean corpuscular hem oglobin concentration determination Dr. Kwabena Menjivar MD Work Phone: Start: 07-11-2024 Nucleated red blood cell count procedure Dr. Kwabena Menjivar MD Work Phone: Start: 07-11-2024 Platelet mean volume determination Dr. Kwabena Menjivar MD Work Phone: Start: 07-04-2024 Blood count smear mc rscp w/mnl difrntl wbc count Dr. Kwabena Menjivar MD Work Phone: Start: 07-04-2024 Mean corpuscular hem oglobin concentration determination Dr. Kwabena Menjivar MD Work Phone: Start: 07-04-2024 Nucleated red blood cell count procedure Dr. Kwabena Menjivar MD Work Phone: Start: 07-04-2024 Platelet mean volume determination Dr. Kwabena Menjivar MD Work Phone: Start: 06-26-2024 Blood count smear mc rscp w/mnl difrntl wbc count Dr. Kwabena Menjivar MD Work Phone: Start: 06-26-2024 Mean corpuscular hem oglobin concentration determination Dr. Kwabena Menjivar MD Work Phone: Start: 06-26-2024 Nucleated red blood cell count procedure Dr. Kwabena Menjivar MD Work Phone: Start: 06-26-2024 Platelet mean volume determination Dr. Kwabena Menjivar MD Work Phone: Start: 06-19-2024 Blood count smear mc rscp w/mnl difrntl wbc count Dr. Kwabena Menjivar MD Work Phone: Start: 06-19-2024 Mean corpuscular hem oglobin concentration determination Dr. Kwabena Menjivar MD Work Phone: Start: 06-19-2024 Nucleated red blood cell count procedure Dr. Kwabena Menjivar MD Work Phone: Start: 06-19-2024 Platelet mean volume determination Dr. Kwabena Menjivar MD Work Phone: Start: 06-12-2024 Blood count smear mc rscp w/mnl difrntl wbc count Dr. Kwabena Menjivar MD Work Phone: Start: 06-12-2024 Mean corpuscular hem oglobin concentration determination Dr. Kwabena Menjivar MD Work Phone: Start: 06-12-2024 Nucleated red blood cell count procedure Dr. Kwabena Menjivar MD Work Phone: Start: 06-12-2024 Platelet mean volume determination Dr. Kwabena Menjivar MD Work Phone: Start: 06-05-2024 Blood count smear mc rscp w/mnl difrntl wbc count Dr. Kwabena Menjivar MD Work Phone: Start: 06-05-2024 Mean corpuscular hem oglobin concentration determination Dr. Kwabena Menjivar MD Work [...] MD Work Phone: Start: 05-29-2024 Mean corpuscular hem oglobin concentration determination Dr. Kwabena Menjivar MD Work [...] MD Work Phone: Start: 05-22-2024 Mean corpuscular hem oglobin concentration determination Dr. Kwabena Menjivar MD Work Phone: Start: 05-22-2024 Nucleated red blood cell count procedure Dr. Kwabena Menjivar MD Work Phone: Start: 05-22-2024 Platelet mean volume determination Dr. Kwabena Menjivar MD Work Phone: Start: 05-11-[address] Kwabena Menjivar MD Work Phone: Start: 05-11-2024 Mean corpuscular hem oglobin concentration determination Dr. Kwabena Menjivar MD Work Phone: Start: 05-11-2024 Platelet mean volume determination Dr. Kwabena Menjivar MD Work Phone: Start: 05-10-2024 X-ray of cervical spine Dr. Kwabena Menjivar MD Work Phone: Start: 05-10-[address] Cal Menjivar MD Work Phone: Start: 05-10-2024 Urine microscopy: red cells Dr. Kwabena Menjivar MD Work Phone: [...] MD Work Phone: Start: 04-27-2024 Mean corpuscular hem oglobin concentration determination Dr. Kwabena Menjivar MD Work [...] MD Work Phone: Start: 04-19-2024 Calculation of inter national normalized ratio Dr. Kwabena Menjivar MD Work [...] Treatment Date Care Activity Detail Author Start: 08-11-2024 [facility] Start: 08-09-2024 [facility]: 08-06-[facility] Start: 08-05-2024 Following clinical pathway protocol [facility] Start: 08-05-2024 Assessment of risk o f venous thromboembolism [facility] Start: 08-05-2024 Insertion of cathete r into peripheral vein [facility] Start: 08-05-2024 Providing care accor ding to standard [facility] Start: 08-05-2024 Provision of activity privileges [facility] Start: 08-05-2024 Referral to occupational therapist [facility] Start: 08-05-2024 Referral [facility] service [facility] Start: 08-05-2024 Speech therapy assessment [facility] Start: 08-05-2024 [facility] Start: 08-05-2024 Verification routine [facility] Start: 08-05-2024 Admission procedure [facility] Start: 08-05-2024 Hospital admission, emergency, from emergency room, medical nature [facility] Start: 08-05-2024 Referral to service [facility] Start: 08-05-2024 End: 08-05-2024 [facility] Start: 08-05-2024 Patient referral to dietitian [facility] Start: 08-03-2024 X-ray of cervical spine [facility] Start: 08-03-2024 XR Cervical spine 2 or 3 Views [facility] Start: 05-25-2024 [facility] Work Phone: Start: 05-20-2024 Patient discharge [facility] Start: 05-15-2024 [facility] Start: 05-12-2024 [facility] Start: 05-10-2024 [facility] Start: 05-09-2024 [facility] Start: 05-09-2024 End: 05-09-2024 [facility] Start: 05-08-2024 Introduction of urinary catheter [facility] Start: 05-08-2024 Urinary bladder training [facility] Start: 05-02-2024 [facility] Start: 05-01-2024 [facility] Start: 04-29-2024 [facility] Start: 04-28-2024 Application of inter mittent pneumatic compression device [facility] Start: 04-27-2024 Speech therapy assessment [facility] Start: 04-27-2024 Scheduling [facility] Start: 04-27-2024 Wound care [facility] Start: 04-27-2024 Referral to service [facility] Start: 04-27-2024 Admission procedure [facility] Start: 04-27-2024 Measuring intake and output [facility] Start: 04-27-2024 Patient referral to dietitian [facility] Start: 04-27-2024 Vital signs measurements [facility] Start: 04-27-2024 End: 04-27-2024 [facility] Start: 04-27-2024 Referral to occupational therapist [facility] Start: 04-27-2024 Catheterization of vein [facility] Start: 04-27-2024 Patient discharge [facility] Start: 04-27-2024 Speech therapy assessment [facility] Start: 04-26-2024 [facility] Start: 04-26-2024 Application of device [facility] Start: 04-26-2024 Referral to occupational therapist [facility] Start: 04-26-2024 Assessment of risk o f venous thromboembolism [facility] Start: 04-26-2024 Following clinical pathway protocol [facility] Start: 04-26-2024 Introduction of urinary catheter [facility] Start: 04-26-2024 Measuring intake and output [facility] Start: 04-26-2024 Neurovascular assessment [facility] Start: 04-26-2024 Oxygen therapy [facility] Start: 04-26-2024 Patient education [facility] Start: 04-26-2024 Provision of activity privileges [facility] Start: 04-26-2024 Referral to service [facility] Start: 04-26-2024 Taking patient vital signs [facility] Start: 04-26-2024 [facility] Start: 04-24-2024 Application of inter mittent pneumatic compression device [facility] Start: 04-20-2024 Admission procedure [facility] Start: 04-20-2024 Consultation [facility] Start: 04-20-2024 [facility] Start: 04-19-2024 Following clinical pathway protocol [facility] Start: 04-19-2024 Assessment of risk o f venous thromboembolism [facility] Start: 04-19-2024 Consultation [facility] Start: 04-19-2024 Insertion of cathete r into peripheral vein [facility] Start: 04-19-2024 Measuring intake and output [facility] Start: 04-19-2024 Providing care accor ding to standard [facility] Start: 04-19-2024 Provision of activity privileges [facility] Start: 04-19-2024 Referral to occupational therapist [facility] Start: 04-19-2024 Referral to service [facility] Start: 04-19-2024 [facility] Start: 04-19-2024 Hospital admission, emergency, from emergency room, medical nature [facility] Start: 04-19-2024 Admission procedure [facility] Start: 04-19-2024 [facility] Start: 04-19-2024 Oxygen therapy [facility] Start: 04-19-2024 End: 04-19-2024 [facility] Start: 04-19-2024 Patient referral to dietitian [facility] Start: 04-19-2024 [facility] Start: 02-26-2024 [facility] Start: 10-22-2022 [facility] Mitotic spindle appa ratus Ab [Titer] in Serum or Plasma [facility] Neuronal nuclear Ab [Presence] in Serum by Immunofluorescence [facility] Nuclear Ab [Titer] i n Serum by Immunofluorescence [facility] Patient Education [facility] Work Phone: Patient referral [facility] Work Phone: Serum HEAVEN pattern [facility] Speckled nuclear Ab pattern [Titer] in Serum [facility] Troponin T.cardiac [ Mass/volume] in Serum or Plasma by High sensitivity method [facility] Troponin T.cardiac [ Mass/volume] in Serum or Plasma by High sensitivity method [facility] Troponin T.cardiac [ Mass/volume] in Serum or Plasma by High sensitivity method [facility] Payers Date Payer Category Payer Self-pay [id number] 2024 Private Health Insurance [id number] 2016 Medicare [id number] 2006 Medicare [id number] Unknown [id number] 2.16.8 [id number] Unknown [id number] 2.16.8 [id number] Unknown [id number] 2.16.8 [id number] Unknown [id number] 2.16.8 [id number] Unknown [id number] 2.16.8 [id number] Unknown [id number] 2.16.8 [id number] Unknown [id number] 2.16.8 [id number] Unknown [id number] 2.16.8 [id number] Unknown [id number] 2.16.8 [id number] Unknown [id number] 2.16.8 [id number] Unknown [id number] 2.16.8 [id number] Unknown [id number] 2.16.8 [id number] Unknown [id number] 2.16.8 [id number] Unknown [id number] 2.16.8 [id number] Unknown [id number] 2.16.8 [id number] Unknown [id number] 2.16.8 [id number] Unknown [id number] 2.16.8 [id number] Unknown [id number] 2.16.8 40.1.735893.3.579.2.462 Unknown [id number] 2.16.8 40.1.804423.3.579.2.462 Unknown [id number] 2.16.8 40.1.484464.3.579.2.462 Unknown [id number] 2.16.8 40.1.785630.3.579.2.462 Unknown [id number] 2.16.8 40.1.026230.3.579.2.462 Unknown [id number] 2.16.8 40.1.875273.3.579.2.462 Unknown [id number] 2.16.8 40.1.959857.3.579.2.462 Unknown [id number] 2.16.8 40.1.846406.3.579.2.462 Unknown [id number] 2.16.8 40.1.740394.3.579.2.462 Unknown [id number] 2.16.8 40.1.291446.3.579.2.462 Unknown [id number] 2.16.8 40.1.476261.3.579.2.462 Unknown [id number] 2.16.8 40.1.824211.3.579.2.462 Unknown [id number] 2.16.8 40.1.393006.3.579.2.462 Unknown [id number] 2.16.8 40.1.524531.3.579.2.462 Unknown [id number] 2.16.8 40.1.509821.3.579.2.462 Unknown [id number] 2.16.8 40.1.405609.3.579.2.462 Unknown [id number] 2.16.8 40.1.419557.3.579.2.462 Unknown [id number] 2.16.8 40.1.425894.3.579.2.462 Unknown [id number] 2.16.8 40.1.898452.3.579.2.462 Unknown [id number] 2.16.8 40.1.313132.3.579.2.462 Unknown [id number] 2.16.8 40.1.101604.3.579.2.462 Unknown [id number] 2.16.8 40.1.249780.3.579.2.462 Unknown [id number] 2.16.8 40.1.245922.3.579.2.462 Unknown [id number] 2.16.8 40.1.462753.3.579.2.462 Unknown [id number] 2.16.8 40.1.291080.3.579.2.462 Unknown [id number] 2.16.8 40.1.895479.3.579.2.462 Unknown [id number] 2.16.8 40.1.534054.3.579.2.462 Unknown [id number] 2.16.8 40.1.801930.3.579.2.462 Unknown [id number] 2.16.8 40.1.888433.3.579.2.462 Unknown [id number] 2.16.8 40.1.638355.3.579.2.462 Unknown [id number] 2.16.8 40.1.950249.3.579.2.462 Unknown [id number] 2.16.8 40.1.130268.3.579.2.462 Unknown [id number] 2.16.8 40.1.856594.3.579.2.462 Unknown [id number] 2.16.8 40.1.953887.3.579.2.462 Unknown [id number] 2.16.8 40.1.568901.3.579.2.462 Unknown [id number] 2.16.8 40.1.112523.3.579.2.462 Unknown [id number] 2.16.8 40.1.055186.3.579.2.462 Unknown [id number] 2.16.8 40.1.815032.3.579.2.462 Unknown [id number] 2.16.8 40.1.773459.3.579.2.462 Unknown [id number] 2.16.8 40.1.146298.3.579.2.462 Unknown [id number] 2.16.8 40.1.951764.3.579.2.462 Unknown [id number] 2.16.8 40.1.806427.3.579.2.462 Unknown [id number] 2.16.8 40.1.543280.3.579.2.462 Unknown [id number] 2.16.8 40.1.764686.3.579.2.462 Unknown [id number] 2.16.8 40.1.300162.3.579.2.462 Unknown [id number] 2.16.8 40.1.857390.3.579.2.462 Unknown [id number] 2.16.8 40.1.754693.3.579.2.462 Social History Date Type Detail Facility Start: 03-28-2021 Tobacco smoking stat [facility] Unknown if ever smoked [facility] Start: 1940 Sex Assigned At Male [facility] Start: 04-19-2024 End: 08-11-2024 Tobacco smoking status NHIS Ex-smoker (finding) [facility] Start: 04-19-2024 End: 05-31-2024 Sex Male (finding) [facility] Medical Equipment Procedure Code Equipment Code [...] Discectomy, spine, cervical, anterior approach, with fusion [id number] FDA Start: 04-26-2024 Discectomy, spine, cervical, anterior [...] /State Functional Status Date Assessment Result Facility 08-09-2024 Functional status Chair [facility] Work Phone: 05-20-2024 Functional status With Assist of 1 [facility] Work Phone: 05-18-2024 Functional status Chair;Bedrest [facility] Work Phone: 04-27-2024 Functional status Bedside Commode;Back to bed [facility] Work Phone: Mental Status Date Assessment Result Facility 08-11-2024 Cognitive function Awake;Alert;A ppropriate;Fol lows Commands [facility] Work Phone: 08-09-2024 Cognitive function Voice/Name [facility] Work Phone: 08-05-2024 Cognitive function Awake;Alert;A ppropriate;Fol lows Commands [facility] Work Phone: 05-20-2024 Cognitive function Voice/Name [facility] Work Phone: 04-27-2024 Cognitive function Awake;Alert;A ppropriate;Fol lows Commands [facility] Work Phone: 04-27-2024 Cognitive function Voice/Name [facility] Work Phone: 04-19-2024 Cognitive function Voice/Name [facility] Work Phone: Clinical Notes 10-14-2022 to 08-11-2024 Note Date & Type Note Facility 08-11-2024 Radiology Diagnostic study note [facility] 08-09-2024 Consult note Note Date/Time August 09, 2024 9:31a m [facility] Medical Records Department [address] [place] [address] Counseling Note - Pharmacy 08/09/24929 MR#: [id number] Acct: [id number] Name: YAS ROSA Rep #:[id number] : 1940 83 From: Juju Elder PCP: Dr. Kwabena Menjivar MD Status :ADM IN Y Location: [place] [address] Pharmacy [place] Med Reconciliation Pharmacy Service has performed discharge medication reconciliation for this patient. [facility] The patient's discharge medication list was reviewed for discrepancies and discrepancies were resolved. Medications at Discharge Home Medications sennosides 8.6 mg-docusate sodium 50 mg tablet (Stimulant Laxative Plus) 2 tab PO BID laxative #0 tabs 04/27/24 gabapentin 100 mg capsule 100 mg PO BIDCM #0 caps 05/18/24 midodrine 5 mg tablet 10 mg (2 x 5 mg) PO 0700,1100,1500 #0 tabs 05/18/24 mirtazapine 15 mg tablet 15 mg PO QHS #0 tabs 05/18/24 pantoprazole 40 mg tablet,delayed release 40 mg PO BID #0 tabs 05/18/24 bupropion HCl 150 mg 24 hr tablet, extended release 150 mg PO DAILY depression 08/05/24 acetaminophen 325 mg tablet 650 mg (2 x 325 mg) PO Q6H PRN PRN Pain 1-10 Or Fever >100.7 #0 tabs 08/09/24 albuterol sulfate 2.5 mg/3 mL (0.083 %) solution for nebulization 2.5 mg (3 mL) inhalation Q2H PRN PRN SOB &/OR WHEEZING #0 mL 08/09/24 duloxetine 30 mg capsule,delayed release 30 mg PO DAILY #0 caps 08/09/24 food supplemt, lactose-reduced 0.08 gram-1.5 kcal/mL oral liquid (Ensure Plus High Protein) 120 ml PO 4X/DAY #0 mL 08/09/24 melatonin 10 mg sublingual tablet 10 mg PO QHS PRN PRN Insomnia #0 tabs 08/09/24 08/09/2431 <Electronically signed by Juju Elder> Date _ Juju Elder Cosigner Signature (if applicable): Date CC: ~ Signed [facility] Work Phone: 1(280) 899-214807-02-2025 Discharge summary Author Jacoby Mendoza [facility] Note Date/Time August 09, 2024 8:28a m [facility] Medical Records Department [address] [place] [address] Discharge Summary 08/09/24 0721 MR#: [id number] Acct: [id number] Name: YAS ROSA Brigido Rep #:[id number] : 1940 83 From: Jacoby Mendoza MD PCP: Dr. Kwabena Menjivar MD Status :ADM [facility] Prov[facility] Date of Admission: 08/06/24 Date of Discharge: 08/09/24 Primary Care Physician: Dr. Kwabena Menjivar MD Reason For Visit: GENERALIZED WEAKNESS, ORTHOSTATIC POSITIVE Diagnosis Discharge Diagnosis (1) Generalized weakness: Status: Acute Code(s): R53.1 - Weakness Plan Patient is an 83-year-old male admitted with significant debility. Patient had apparently undergone multilevel cervical fusion in April 2024. He has since continued to develop progressive generalized weakness 1. Physical deconditioning ? Requested for PT OT eval and social service assistant to assist with discharge planning. 08/09/2024; patient was discharged on 03/12/2024 after he met his qualifying days 2. Orthostatic hypotension ? This was felt to be contributing to patient's symptoms patient was placed on midodrine for symptom management ? 08/09/2024; patient orthostatic hypotension resolved had been started on midodrine during his hospital stay discontinued on discharge 3. Degenerative joint disease ? With history of cervical fusion on 04/26/2024 4. Depression ? Patient is on bupropion as well as Remeron at night 5.DVT prophylaxis ? On enoxaparin Time spent in the patient's overall evaluation,decision-making process, review of diagnostic data, adjustment of management, discussion with other providers, nursing nursing and ancillary staff involved in patient's care documentation, 35 Minutes Medications at Discharge Home Medications sennosides 8.6 mg-docusate sodium 50 mg tablet (Stimulant Laxative Plus) 2 tab PO BID laxative #0 tabs 04/27/24 food supplemt, lactose-reduced 0.08 gram-1.5 kcal/mL oral liquid (Ensure Plus High Protein) 120 ml PO 4X/DAY #0 mL 05/18/24 gabapentin 100 mg capsule 100 mg PO BIDCM #0 caps 05/18/24 midodrine 5 mg tablet 10 mg (2 x 5 mg) PO 0700,1100,1500 #0 tabs 05/18/24 mirtazapine 15 mg tablet 15 mg PO QHS #0 tabs 05/18/24 pantoprazole 40 mg tablet,delayed release 40 mg PO BID #0 tabs 05/18/24 bupropion HCl 150 mg 24 hr tablet, extended release 150 mg PO DAILY depression 08/05/24 acetaminophen 325 mg tablet 650 mg (2 x 325 mg) PO Q6H PRN PRN Pain 1-10 Or Fever >100.7 #0 tabs 08/09/24 albuterol sulfate 2.5 mg/3 mL (0.083 %) solution for nebulization 2.5 mg (3 mL) inhalation Q2H PRN PRN SOB &/OR WHEEZING #0 mL 08/09/24 duloxetine 30 mg capsule,delayed release 30 mg PO DAILY #0 caps 08/09/24 food supplemt, lactose-reduced 0.08 gram-1.5 kcal/mL oral liquid (Ensure Plus High Protein) 120 ml PO 4X/DAY #0 mL 08/09/24 melatonin 10 mg sublingual tablet 10 mg PO QHS PRN PRN Insomnia #0 tabs 08/09/24 Physical Exam Narrative GENERAL: cooperative HEENT: Atraumatic; normocephalic EYES; Anicteric, Normal Conjunctiva NECK; supple, normal thyroid, RESPIRATORY: Diminished to auscultation CARDIOVASCULAR: Regular S1 S2, GI: soft, normoactive bowel sounds, : No Renal angle tenderness; EXTREMITIES: No edema, no clubbing, MUSCULOSKELETAL: no muscle wasting NEURO: Awake; no lateralizing signs. SKIN: No Rash PSYCH; Flat affect Weight / BMI Weight Weight: 71.668 kg Body Mass Index (BMI) 24.0 ABG / Lab / Microbiology Data 08/06/24 04:58 08/06/24 04:58 D/C Instructions Discharge Diet: No restrictions Discharge Activity: Return to Normal Activity Call your doctor if you observe: Fever of 101 or Higher, Shortness of breath, Fainting spells and Chest pain DC O2, CPAP, BIPAP Needs Home O2 Discharge instructions: No Meaningful Use Info Meaningful Use Meaningful Use [...] Simvastatin 80mg Discharge Plan Admission Admit Date/Time: 08/06/24 13:22 Attending Provider: Jacoby Mendoza Primary Care Provider: Kwabena Menjivar Consulting Providers: Yu Bradley; Keanu Collier Discharge Orders/Prescriptions Prescriptions: New acetaminophen 325 mg Tablet 650 mg PO Q6H PRN PRN (Reason: Pain 1-10 Or Fever >100.7) Qty: 0 0RF albuterol sulfate 2.5 mg /3 mL (0.083 %) Solution For Nebulization 2.5 mg inhalation Q2H PRN PRN (Reason: SOB &/OR WHEEZING) Qty: 0 0RF duloxetine 30 mg Capsule,Delayed Release(Dr/Ec) 30 mg PO DAILY Qty: 0 0RF melatonin 10 mg Tablet, Sublingual 10 mg PO QHS PRN PRN (Reason: Insomnia) Qty: 0 0RF Ensure Plus High Protein 0.08 gram-1.5 kcal/mL Liquid 120 ml PO 4X/DAY Qty: 0 0RF Continued midodrine 5 mg Tablet 10 mg PO 0700,1100,1500 Qty: 0 0RF pantoprazole 40 mg Tablet,Delayed Release (Dr/Ec) 40 mg PO BID Qty: 0 0RF mirtazapine 15 mg Tablet 15 mg PO QHS Qty: 0 0RF gabapentin 100 mg Capsule 100 mg PO BIDCM Qty: 0 0RF Ensure Plus High Protein 0.08 gram-1.5 kcal/mL Liquid 120 ml PO 4X/DAY Qty: 0 0RF sennosides-docusate sodium [Stimulant Laxative Plus] 8.6-50 mg Tablet 2 tab PO BID Qty: 0 0RF bupropion HCl 150 mg tablet extended release 24 hr 150 mg PO DAILY Referrals / Follow Up: Kwabena Menjivar MD [Primary Care Provider] - Disposition Disposition (needs filled in before D/C Order can be placed): [facility] Facility Charges/Coding Visit Charges Inpatient E&M: 71056 Disch Hosp >30min 08/09/24 0828 <Electronically signed by Jacoby Mendoza MD> Cosigner Signature (if applicable): CC: Dr. Kwabena Menjivar MD; Dr. Jacoby Mendoza MD~ Signed [facility] Work Phone: 1(440) 687-838607-02-2025 [facility]07-01-2025 Progress [facility] Note Date/Time August 08, 2024 11:14 am [facility] Medical Records Department [address] [place] [address] Progress Note - Hospitalist 08/08/24 0755 MR#: [id number] Acct: [id number] Name: MOEYAS Brigido Rep #:[id number] : 1940 83 From: Jacoby Mendoza MD PCP: Dr. Kwabena Menjivar MD Status :ADM IN Location: [facility] [place] Reason for Visit Reason for Visit: Diagnoses Dizziness and giddiness (08/06/24) Weakness (08/06/24) Subjective Subjective Patient is an 83-year-old male admitted with significant debility. Patient had apparently undergone multilevel cervical fusion in April 2024. He has since continued to develop progressive generalized weakness Objective Data Objective Data Vital Signs: Vital Signs Temp Pulse Resp BP Pulse Ox O2 Del Method 98.3 F 60 18 156/78 H 96 Room Air 08/08/24 04:27 08/08/24 04:27 08/08/24 04:27 08/08/24 04:27 08/08/24 04:27 08/08/24 04:27 Oxygen Delivery Method Room Air Weight: 71.668 kg Body Mass Index (BMI) 24.0 Intake & Output: Intake and Output for Last 24 Hours 08/06/24 08/07/24 08/08/24 23:59 23:59 23:59 Intake Total 850 / 850 600 / 600 1100 / 1100 Output Total 700 / 700 300 / 300 Balance 150 / 150 600 / 600 800 / 800 Lab / Micro Data 08/06/24 04:58 08/06/24 04:58 Physical Exam Narrative GENERAL: cooperative HEENT: Atraumatic; normocephalic EYES; Anicteric, Normal Conjunctiva NECK; supple, normal thyroid, RESPIRATORY: Diminished to auscultation CARDIOVASCULAR: Regular S1 S2, GI: soft, normoactive bowel sounds, : No Renal angle tenderness; EXTREMITIES: No edema, no clubbing, MUSCULOSKELETAL: no muscle wasting NEURO: Awake; no lateralizing signs. SKIN: No Rash PSYCH; Flat affect Assessment & Plan Assessment/Plan (1) Generalized weakness: PLAN: Plan Patient is an 83-year-old male admitted with significant debility. Patient had apparently undergone multilevel cervical fusion in April 2024. He has since continued to develop progressive generalized weakness 1. Physical deconditioning ? Requested for PT OT eval and social service assistant to assist with discharge planning. Plan is for patient to be discharged on 08/09/2024 2. Orthostatic hypotension ? This was felt to be contributing to patient's symptoms patient was placed on midodrine for symptom management 3. Degenerative joint disease ? With history of cervical fusion on 04/26/2024 4. Depression ? Patient is on bupropion as well as Remeron at night 5.DVT prophylaxis ? On enoxaparin Time spent in the patient's overall evaluation,decision-making process, review of diagnostic data, adjustment of management, discussion with other providers, nursing nursing and ancillary staff involved in patient's care documentation, 36 Minutes Charges/Coding Visit Charges Inpatient E&M: 58406 Subs Hosp L2 08/08/24 1114 <Electronically signed by Jacoby Mendoza MD> Cosigner Signature (if applicable): CC: ~ Signed [facility] Work Phone: 1(220) 672-873406-29-2025 Progress note Author Keanu Collier [facility] Note Date/Time August 06, 2024 4:03 pm [facility] Medical Records Department [address] [place] [address] Progress Note - Hospitalist 08/06/24 1541 MR#: [id number] Acct: [id number] Name: YAS ROSA Rep #:[id number] : 1940 83 From: Keanu Collier DO PCP: Dr. Kwabena Menjivar MD Status :ADM IN Location: [facility]-9 Reason for Visit Reason for Visit: Diagnoses Dizziness and giddiness (08/06/24) Weakness (08/06/24) Subjective Subjective Patient was seen and examined today, he is a very poor informant, at first he told me he had not ever been in a prison and it turns out he was in a prison from May 20 of this year to July 14 of this year. Patient had cervical fusion here at [facility]-the surgery was performed on 04/26/2024 and it was a C3-6 ACDF. Following this, the patient went to the rehab unit at [facility] on 04/28/2024 and was discharged from the rehab unit on 05/20/2024 with admission to [facility] facility. Information obtained from the patient's ex- is that the patient is unable to care for himself at home. He is estranged from his children and she is the main contact. I discussed his medical care with her several times today. I am concerned that the patient's deficits may be permanent and he will need more than 2 to 3 weeks in a skilled facility. He may be eligible for Medicaid, I will talk to case management tomorrow about this. Objective Data Objective Data Vital Signs: Vital Signs Temp Pulse Resp BP Pulse Ox O2 Del Method 98.1 F 72 16 112/49 L 97 Room Air 08/06/24 15:05 08/06/24 15:05 08/06/24 15:05 08/06/24 15:05 08/06/24 15:05 08/06/24 15:05 Oxygen Delivery Method Room Air Weight: 71.668 kg Body Mass Index (BMI) 24.0 Intake & Output: Intake and Output for Last 24 Hours 08/04/24 08/05/24 08/06/24 23:59 23:59 23:59 Intake Total 2350 / 2350 550 / 550 Output Total 700 / 700 Balance 2350 / 2350 -150 / -150 Lab / Micro Data 08/06/24 04:58 08/06/24 04:58 Labs: Laboratory Results - last 24 hr 08/05/24 16:07: Troponin T Hi Sens 4Hr 36 H 08/06/24 04:58: WBC 7.0, RBC 4.01 L, Hgb 11.6 L, Hct 34.8 L, MCV 86.8, MCH 28.9,MCHC 33.3, RDW Std Deviation 40.7, RDW Coeff of Delia 12.8, Plt Count 186, MPV 8.6, Immature Gran % (Auto) 0.300, Neut % (Auto) 48.2, Lymph % (Auto) 36.2, Nobles% (Auto) 10.5 H, Eos % (Auto) 4.2, Baso % (Auto) 0.6, Absolute Neuts (auto) 3.4,Absolute Lymphs (auto) 2.53, Nucleated RBC % 0, Sodium 140, Potassium 4.1, Chloride 106, Carbon Dioxide 23.8, Anion Gap 10, BUN 14, Creatinine 0.91, Estim Creat Clear Calc 60.55, Est GFR (MDRD) Non-Af 85, BUN/Creatinine Ratio 15.7, Glucose 93, Calcium 8.7, Cortisol AM Sample 16.30 Physical Exam Const alert, oriented x3 and no apparent distress General Appearance: cooperative, well kempt and well developed Orientation / Consciousness: awake, oriented to person, oriented to place and oriented to time HEENT normocephalic, head/scalp atraumatic and moist oral mucous membranes Eyes PERRL, EOMs intact bilaterally and conjunctivae normal Neck supple, no JVD, thyroid normal and no carotid bruits General: trachea midline Resp normal respiratory effort, no retractions, no use of accessory muscles and clearto auscultation bilaterally Auscultation: Negative for rales, rhonchi or wheezes Cardio regular rate, regular rhythm, no murmurs, no rub and no gallops GI normal to inspection, nondistended, normoactive bowel sounds, soft to palpation,non-tender and non-distended Extremity no clubbing, cyanosis or edema Skin no rashes or lesions noted General Skin Exam: no breakdown Neuro oriented x3, CN's II-XII intact bilaterally, moves all extremities, no focal motor deficits and no sensory deficits noted Sensorium / Orientation: awake and alert Speech: speech normal Psych Psych Narrative: Patient is a poor informant, he has blunted affect Mood & Affect: depressed Assessment & Plan Assessment/Plan (1) Generalized weakness: PLAN: Plan 1. Acute on chronic debility-patient will be seen by PT and OT, he will need placement in a mcfp facility. #2 orthostatic hypotension with periods of lightheadedness-patient is chronically on midodrine, I will restart this medication at a lower dose to see if it will help #3 degenerative disc disease of the cervical spine-status post cervical fusion 04/26/2024-continue PT and OT #4 chronic depression-patient will remain on Remeron at bedtime, he is also on Wellbutrin. Total clinical time spent by myself addressing the patient's medical issues, reviewing all of his data, and collaborating with patient's care team: 35 minutes Charges/Coding Visit Charges Inpatient E&M: 55180 Subs Hosp L2 08/06/24 1603 <Electronically signed by Keanu Collier DO> Cosigner Signature (if applicable): CC: ~ Signed [facility] Work Phone: 1(750) 650-263106-28-2025 History and physical note Author Yu Bradley [facility] Note Date/Time August 05, 2024 4:11 pm [facility] Medical Records Department [address] [place] [address] H&P Exam - Hospitalist 08/05/24 1543 MR#: [id number] Acct: [id number] Name: YAS ROSA Rep #:[id number] : 1940 83 From: Yu Bradley MD PCP: Dr. Kwabena Menjivar MD Status :ADM IRINA Location: [facility]3 [id number] HPI - General General Date of Admission: 08/05/24 Date of Service: 08/05/24 Chief Complaint: Generalized weakness, lightheaded on standing HPI Narrative YAS ROSA, is a 83-year-old male history of anxiety, IBS, depression, GERD, cervical myelopathy with surgery in April presented [facility] ED 08/05/2024 with complaint of worsening generalized weakness as well as some intermittent lightheadedness that has been present since surgery. He feels veryweak and has difficulty lifting his walker even with the weakness. Also reportsconstipation for the past 4 days. In the ED temp 98.5 with heart rate 78, SBP 135/104 w/ RR 18 and pulse ox 100% on RA, orthostats were found to be positive. White blood cell count within normal limits, hemoglobin 12.3, platelets 208. Lactic acid 1.3 and CMP unremarkable. Given patient's generalized weakness and orthostatic vital signs positive hospitalist contacted for admission. Patient evaluated family members at bedside, patient has been home from [facility] for the[facility] couple weeks but has had difficulties with lightheaded on standing intermittently despite being started on midodrine and feeling generally weak which has been present since surgery but has been slowly worsening, also intermittently gets cramps on his left side. Patient has chronic residual left upper extremity deficits and reports he has tingling all over with neuropathy. Did start taking gabapentin earlier this week. Also has been having difficultywith food sticking and does report constipation as above with no nausea or abdominal pain. No chest pain or shortness of breath, no fever headache. No other new acute complaints [facility] Cervical myelopathy Angiectasia of large intestine History of gastric polyp GERD with esophagitis Postural dizziness with near syncope Bilateral arm weakness Osteoarthritis Anxiety and depression Ventral hernia Loss of hearing Wears glasses Wears dentures Alcohol use History of IBS Heartburn Former smoker History of stress test Home Medications ?Medication ?Instructions ?Recorded ?Last Taken ?Type sennosides 8.6 mg-docusate sodium 2 tab PO BID laxativ e #0 tabs 04/27/24 Unknown Rx 50 mg tablet (Stimulant Laxative Plus) benzocaine 15 mg-menthol 3.6 mg 1 juliet mucous membrane Q2H PRN PRN 05/18/24 Unknown Rx lozenges (Sore Throat (benzocaine SORE THROAT #0 ea with menthol)) bisacodyl 10 mg rectal suppository 10 mg [place] X1 PRN Con stipation #0 ea 05/18/24 Unknown Rx carboxymethylcellulose sodium 0.5 2 drp EACH EYE Q1H P RN DRY EYES #0 05/18/24 Unknown Rx % eye drops (Refresh Tears) mL food supplemt, lactose-reduced 120 ml PO 4X/DAY #0 mL 05/18/24 Unknown Rx 0.08 gram-1.5 kcal/mL oral liquid (Ensure Plus High Protein) gabapentin 100 mg capsule 100 mg PO BIDCM #0 caps 05/09 Unknown Rx magnesium hydroxide 400 mg/5 mL 30 ml PO X1 PRN Consti pation #0 mL 05/18/24 Unknown Rx oral suspension menthol 0.44 %-zinc oxide 20.6 % 1 applic topical BID #0 grams 05/18/24 Unknown Rx topical ointment (Calmoseptine) midodrine 5 mg tablet 10 mg (2 x 5 mg) PO 0700,110 0,1500 05/18/24 Unknown Rx #0 tabs mirtazapine 15 mg tablet 15 mg PO QHS #0 tabs 5 Unknown Rx pantoprazole 40 mg tablet,delayed 40 mg PO BID #0 tabs 05/18/24 Unknown Rx release calcium polycarbophil 625 mg 1,250 mg (2 x 625 mg) PO QDAY #180 05/25/24 Unknown Rx tablet (FiberCon) tabs hydrocortisone acetate 25 mg 25 mg [place] QHS #12 ea 05/25 Unknown Rx rectal suppository (Anusol-HC) Allergy/AdvReac Type Severity Reaction Status Date / Time No Known Allergies Allergy Verified 08/05/24 11:37 Family History Father , at 40 YOA of an MA Heart disease Other Hypertension Surgical History Status post cervical spinal fusion History of esophagogastroduodenoscopy (EGD) Hx of colonoscopy History of tonsillectomy and adenoidectomy History of appendectomy Social History household members: none and other details: He [...] type: does not use ROS ROS Narrative General: Denies fever/chills HENT: Denies headache, denies stuffy nose, denies sore throat EYES: Denies changes in vision Resp: Denies cough, denies shortness of breath Cardiac: Denies chest pain GI: Denies abdominal pain, constipation for 4 days, denies nausea/vomiting : Denies changes in urination Extremity: Denies swelling MSK: Generalized weakness, chronic left upper extremity deficit Neuro: Has some chronic left-sided deficits, reports he has tingling in extremities which is not necessarily new Heme: Denies any bleeding or bruising Skin: Denies rashes Psychiatric: No complaints voiced Vital Signs Vital Signs Vital Signs: 08/05/24 11:33 08/05/24 12:11 08/05/24 13:19 Temperature 98.5 F Temperature Source Oral Pulse Rate 78 Pulse Rate [Lying] 73 Pulse Rate [Sitting (for 1 minute prior to obtaining)] 72 Pulse Rate [Standing (for 1 minute prior to obtaining)] 75 Respiratory Rate 18 Respiratory Effort Normal Respiratory Pattern Normal Blood Pressure 135/104 H Blood Pressure [Lying] 168/87 H Blood Pressure [Sitting (for 1 minute prior to obtaining)] 160/74 H Blood Pressure [Standing (for 1 minute prior to obtaining)] 143/73 H Blood Pressure Mean 114 Blood Pressure Mean [Lying] 114 Blood Pressure Mean [Sitting (for 1 minute prior to obtaining)] 102 Blood Pressure Mean [Standing (for 1 minute prior to obtaining)] 96 Pulse Ox 100 Oxygen Delivery Method Room Air 08/05/24 13:31 08/05/24 15:00 Temperature Temperature Source Pulse Rate 67 78 Pulse Rate [Lying] Pulse Rate [Sitting (for 1 minute prior to obtaining)] Pulse Rate [Standing (for 1 minute prior to obtaining)] Respiratory Rate 15 16 Respiratory Effort Respiratory Pattern Blood Pressure 187/74 H 168/94 H Blood Pressure [Lying] Blood Pressure [Sitting (for 1 minute prior to obtaining)] Blood Pressure [Standing (for 1 minute prior to obtaining)] Blood Pressure Mean 111 118 Blood Pressure Mean [Lying] Blood Pressure Mean [Sitting (for 1 minute prior to obtaining)] Blood Pressure Mean [Standing (for 1 minute prior to obtaining)] Pulse Ox 100 100 Oxygen Delivery Method Room Air Room Air Weight Weight: 74 kg Body Mass Index (BMI) 24.7 Physical Exam Narrative General: Alert, no apparent distress HEENT: Atraumatic, normocephalic Eyes: Anicteric, normal conjunctiva, extraocular movements grossly intact Neck: Supple Respiratory: Clear to auscultation bilaterally, normal respiratory effort Cardiovascular: Regular rate GI: Soft, nontender, nondistended Extremities: No significant pitting edema Musculoskeletal: Patient with limited movement in left upper extremity Neuro: Has some chronic left-sided deficits, diffusely weak Skin: No rashes appreciated Psych: Overall cooperative Results Lab / Micro Data 08/05/24 12:00 08/05/24 12:00 Labs: Laboratory Results - last 24 hr 08/05/24 12:00: WBC 8.4, RBC 4.22 L, Hgb 12.3 L, Hct 37.0 L, MCV 87.7, MCH 29.1,MCHC 33.2, RDW Std Deviation 41.0, RDW Coeff of Delia 12.9, Plt Count 208, MPV 8.7, Immature Gran % (Auto) 0.200, Neut % (Auto) 57.7, Lymph % (Auto) 31.4, Nobles% (Auto) 8.2, Eos % (Auto) 2.0, Baso % (Auto) 0.5, Absolute Neuts (auto) 4.8, Absolute Lymphs (auto) 2.63, Nucleated RBC % 0, Sodium 138, Potassium 4.3, Chloride 103, Carbon Dioxide 23.8, Anion Gap 12, BUN 18, Creatinine 0.87, Estim Creat Clear Calc 63.33, Est GFR (MDRD) Non-Af 86, BUN/Creatinine Ratio 21.1 H, Glucose 93, Calcium 9.4, Total Bilirubin 0.41, AST 25, ALT 23, Alkaline Phosphatase 120, Troponin T High Sens 39 H D, Total Protein 6.4, Albumin 4.0, Globulin 2.4, Albumin/Globulin Ratio 1.7, Lipase 15 08/05/24 12:25: Lactic Acid 1.3 08/05/24 13:15: Urine Color Yellow, Urine Clarity Clear, Urine pH 7.0, Ur Specific [place] 1.010, Urine Protein Negative, Urine Glucose (UA) Normal, UrineKetones Negative, Urine Occult Blood Negative, Urine Nitrite Negative, Urine Bilirubin Negative, Urine Urobilinogen Normal, Ur Leukocyte Esterase Negative, Urine RBC 0 SEEN, Urine WBC 0 SEEN, Ur Squamous Epith Cells 0 SEEN, Urine Bacteria 0 SEEN, Urine Mucus 0 SEEN 08/05/24 14:00: Troponin T Hi Sens 2 Hr 36 H Imaging Radiology Impression Brain CT 08/05/24 12:10 IMPRESSION: No acute intracranial process. Reading Location: [facility] Cervical Spine CT 08/05/24 12:10 IMPRESSION: No acute cervical fracture or subluxations. Moderate multilevel degenerative changes of the cervical spine as above. Cervical ACDF spanning C3-C6 with interbody spacers. Reading Location: [facility] Assessment & Plan Assessment/Plan (1) Orthostatic lightheadedness: (2) Generalized weakness: PLAN: Plan #Positive orthostatic vital signs and generalized weakness -SBP lying 168/87 and standing 143/73 with dizziness and weakness -Will obtain echo -Appears patient has been on gabapentin since 07/29 which may be contributing/worsening symptoms, will hold - Given his neuropathy he is agreeable to trialing Cymbalta and holding gabapentin - Recent TSH within normal limits - Check a.m. cortisol - Patient given fluids in the ED - Patient has been on midodrine for couple of days and is hypertensive but stillhas drop in blood pressure, will hold midodrine while evaluating other underlying etiology # Recent surgery for cervical myelopathy -CT of the C-spine with no acute appearing process -PT/OT -Did recently follow w/ Dr. Diego on 08/03 -Supportive care #Sticking feeling w/ swallowing - Speech therapy consult #Elevated troponin - Troponin of 39 without chest pain, in April it was 31, repeat troponin 36 -May be due to blood pressure fluctuations -Patient to have echocardiogram as above - Do not expect any kind of ACS or cardiac event #Depression/anxiety - Continue Wellbutrin, patient to be started on Cymbalta #GERD -Continue PPI #DVT ppx: Lovenox subcu Yu Bradley MD Charges/Coding Visit Charges Inpatient E&M: 58224 Init Hosp L2 08/05/24 1611 <Electronically signed by Yu Bradley MD> Cosigner Signature (if applicable): CC: Dr. Kwabena Menjivar MD; Dr. Yu Bradley MD~ Signed [facility] Work Phone: 1(260) 517-319606-28-2025 Discharge summary Author Kayode Woods [facility] Note Date/Time August 05, 2024 2:50 pm [facility] Medical Records Department [address] [place] [address] Emergency Department Summary 08/05/24 MR#: [id number] Acct: [id number] Name: YAS ROSA Rep #:[id number] : 1940 83 From: Kayode Woods DO PCP: Dr. Kwabena Menjivar MD Status :REG ER Location: ED HPI History of Present Illness Chief Complaint: Weakness Narrative Narrative: Patient is a 83-year-old male with past medical history anxiety, IBS, depression, GERD, cervical myelopathy with surgery back in April who presents tot emergency department with chief complaint of worsening generalized weakness. Patient states that he also is having dizziness but this has been going on since surgery as well and notes that this is intermittently. He states that he feels very weak and has hard time lifting his walker with his arms. He denies any new injuries falls or trauma to his head or neck. Patient denies recent contacts. States that he has been constipated for approximately 4 days now. But states that prior to this when he was having bowel movements he denied any black stools denied any blood in his stool [facility] Medical History Cervical myelopathy Angiectasia of large intestine History of gastric polyp GERD with esophagitis Postural dizziness with near syncope Bilateral arm weakness Osteoarthritis Anxiety and depression Ventral hernia Loss of hearing Wears glasses Wears dentures Alcohol use History of IBS Heartburn Former smoker History of stress test Home Medications ?Medication ?Instructions ?Recorded ?Last Taken ?Type sennosides 8.6 mg-docusate sodium 2 tab PO BID laxativ e #0 tabs 04/27/24 Unknown Rx 50 mg tablet (Stimulant Laxative Plus) benzocaine 15 mg-menthol 3.6 mg 1 juliet mucous membrane Q2H PRN PRN 05/18/24 Unknown Rx lozenges (Sore Throat (benzocaine SORE THROAT #0 ea with menthol)) bisacodyl 10 mg rectal suppository 10 mg [place] X1 PRN Con stipation #0 ea 05/18/24 Unknown Rx carboxymethylcellulose sodium 0.5 2 drp EACH EYE Q1H P RN DRY EYES #0 05/18/24 Unknown Rx % eye drops (Refresh Tears) mL food supplemt, lactose-reduced 120 ml PO 4X/DAY #0 mL 05/18/24 Unknown Rx 0.08 gram-1.5 kcal/mL oral liquid (Ensure Plus High Protein) gabapentin 100 mg capsule 100 mg PO BIDCM #0 caps 05/09 Unknown Rx magnesium hydroxide 400 mg/5 mL 30 ml PO X1 PRN Consti pation #0 mL 05/18/24 Unknown Rx oral suspension menthol 0.44 %-zinc oxide 20.6 % 1 applic topical BID #0 grams 05/18/24 Unknown Rx topical ointment (Calmoseptine) midodrine 5 mg tablet 10 mg (2 x 5 mg) PO 0700,110 0,1500 05/18/24 Unknown Rx #0 tabs mirtazapine 15 mg tablet 15 mg PO QHS #0 tabs 5 Unknown Rx pantoprazole 40 mg tablet,delayed 40 mg PO BID #0 tabs 05/18/24 Unknown Rx release calcium polycarbophil 625 mg 1,250 mg (2 x 625 mg) PO QDAY #180 05/25/24 Unknown Rx tablet (FiberCon) tabs hydrocortisone acetate 25 mg 25 mg WY QHS #12 ea 05/25 Unknown Rx rectal suppository (Anusol-HC) Allergy/AdvReac Type Severity Reaction Status Date / Time No Known Allergies Allergy Verified 08/05/24 11:37 Family History Father , at 40 YOA of an MA Heart disease Other Hypertension Surgical History Status post cervical spinal fusion History of esophagogastroduodenoscopy (EGD) Hx of colonoscopy History of tonsillectomy and adenoidectomy History of appendectomy Social History household members: none and other details: He [...] type: does not use ROS ROS ED ROS Narrative Constitutional: Complains of lightheadedness, dizziness as noted above denies any fevers, chills, headaches Eyes: Denies change in vision double vision blurry vision Cardiovascular: Denies chest pain Respiratory: Denies coughing wheezing shortness of breath Abdomen: Complains of constipation denies any abdominal pain nausea vomit diarrhea states he is passing gas : Denies urinary symptoms Neurological: Complains of numbness and tingling in the bilateral upper extremities in the left lower extremity that has been going on since surgery again as noted above Musculoskeletal: Denies any new back pain Skin: Denies any rashes or lesions EXAM Physical Exam Narrative Exam Narrative: General: Patient is lying bed rest comfortably did not appear to be acute distress Head: Atraumatic, normocephalic Eyes: PERRL bilaterally, EOMI by, no conjunctival injection noted Neck: Soft, supple, trachea midline Cardiovascular: Regular rate and rhythm no murmurs gallops rubs noted Respiratory: Clear to auscultation bilaterally no rales rhonchi or wheezes noted Abdomen: Soft, nondistended, no tenderness palpation Extremities: +3/5 strength noted in the bilateral upper extremities, radial pulses +2/4 in the bilateral extremities, +4/5 strength noted in the bilateral lower extremities, no pedal edema on exam Neurological: Patient following commands knew that he was at [facility] the year is 2024. Sensation is decreased but equal in the bilateral upper extremities states that this is unchanged since the surgery, rest of sensation is grossly intact Skin: Warm, dry, intact no rashes or lesions noted Const Vital Signs: 08/05/24 11:33 08/05/24 12:11 08/05/24 13:19 Temperature 98.5 F Temperature Source Oral Pulse Rate 78 Pulse Rate [Lying] 73 Pulse Rate [Sitting (for 1 minute prior to obtaining)] 72 Pulse Rate [Standing (for 1 minute prior to obtaining)] 75 Respiratory Rate 18 Respiratory Effort Normal Respiratory Pattern Normal Blood Pressure 135/104 H Blood Pressure [Lying] 168/87 H Blood Pressure [Sitting (for 1 minute prior to obtaining)] 160/74 H Blood Pressure [Standing (for 1 minute prior to obtaining)] 143/73 H Blood Pressure Mean 114 Blood Pressure Mean [Lying] 114 Blood Pressure Mean [Sitting (for 1 minute prior to obtaining)] 102 Blood Pressure Mean [Standing (for 1 minute prior to obtaining)] 96 Pulse Ox 100 Oxygen Delivery Method Room Air 08/05/24 13:31 Temperature Temperature Source Pulse Rate 67 Pulse Rate [Lying] Pulse Rate [Sitting (for 1 minute prior to obtaining)] Pulse Rate [Standing (for 1 minute prior to obtaining)] Respiratory Rate 15 Respiratory Effort Respiratory Pattern Blood Pressure 187/74 H Blood Pressure [Lying] Blood Pressure [Sitting (for 1 minute prior to obtaining)] Blood Pressure [Standing (for 1 minute prior to obtaining)] Blood Pressure Mean 111 Blood Pressure Mean [Lying] Blood Pressure Mean [Sitting (for 1 minute prior to obtaining)] Blood Pressure Mean [Standing (for 1 minute prior to obtaining)] Pulse Ox 100 Oxygen Delivery Method Room Air MDM MDM MDM Narrative Medical decision making narrative: Patient is a 83-year-old male who presented to the emergency department with a chief complaint of generalized weakness that is worsening and not feeling well. On the differential diagnosis includes but not limited to UTI, pneumonia, intracranial hemorrhage, brain mass, deconditioning. Once workup is obtained reviewed he will be reevaluated. Patient be given IV fluids for hydration. Insert patient CBC reviewed and showed no evidence leukocytosis white blood count 8.4, hemoglobin 12.3, platelet count was 208. Patient sodium was 130, potassium normal at 4.3, creatinine was 0.87. Patient's AST and ALT were 25 and23 respectively. Patient's troponin 39 with a delta troponin pending at this point in time. Patient's lipase normal at 15, urinalysis shows negative nitrites negative leukocyte esterase have low suspicion for infection at this point in time. Patient's CT head and brain without contrast showed no acute intracranial processes. Patient CT cervical spine reviewed showed no acute cervical fracture or subluxation moderate multilevel degenerative change of the cervical spine cervical ACDF spanning C3-C6 with interbody spacers. Patient's orthostatic vital signs were positive he was given additional fluid. At this point time will discuss case with hospitalist for admission for generalized weakness, lives alone and will likely require placement for rehabilitation which family and patient is agreeable with this plan. Discussed the case with hospitalist Dr. Bradley who will accept the patient for admission. Patient was notified as well as family members at bedside they are agreeable with this plan all question concerns were answered. Lab Data Labs: Laboratory Results - last 24 hr 08/05/24 08/05/24 08/05/24 12:00 12:25 13:15 WBC 8.4 RBC 4.22 L Hgb 12.3 L Hct 37.0 L MCV 87.7 MCH 29.1 MCHC 33.2 RDW Std Deviation 41.0 RDW Coeff of Delia 12.9 Plt Count 208 MPV 8.7 Immature Gran % (Auto) 0.200 Neut % (Auto) 57.7 Lymph % (Auto) 31.4 Nobles % (Auto) 8.2 Eos % (Auto) 2.0 Baso % (Auto) 0.5 Absolute Neuts (auto) 4.8 Absolute Lymphs (auto) 2.63 Nucleated RBC % 0 Sodium 138 Potassium 4.3 Chloride 103 Carbon Dioxide 23.8 Anion Gap 12 BUN 18 Creatinine 0.87 Estim Creat Clear Calc 63.33 Est GFR (MDRD) Non-Af 86 BUN/Creatinine Ratio 21.1 H Glucose 93 Lactic Acid 1.3 Calcium 9.4 Total Bilirubin 0.41 AST 25 ALT 23 Alkaline Phosphatase 120 Troponin T High Sens 39 H D Total Protein 6.4 Albumin 4.0 Globulin 2.4 Albumin/Globulin Ratio 1.7 Lipase 15 Urine Color Yellow Urine Clarity Clear Urine pH 7.0 Ur Specific [place] 1.010 Urine Protein Negative Urine Glucose (UA) Normal Urine Ketones Negative Urine Occult Blood Negative Urine Nitrite Negative Urine Bilirubin Negative Urine Urobilinogen Normal Ur Leukocyte Esterase Negative Radiography Diagnostic Testing: Clinical Impression(s) from Imaging Studies Brain CT 08/05/24 12:10 IMPRESSION: No acute intracranial process. Reading Location: [facility] Cervical Spine CT 08/05/24 12:10 IMPRESSION: No acute cervical fracture or subluxations. Moderate multilevel degenerative changes of the cervical spine as above. Cervical ACDF spanning C3-C6 with interbody spacers. Reading Location: [facility] Discharge Plan Triage Chief Complaint: Weakness ED Provider: Kayode Woods Dx/Rx/DC Orders Clinical Impression: Orthostatic hypotension, Lightheadedness, Generalized weakness Prescriptions: No Action hydrocortisone acetate [Anusol-HC] 25 mg suppository 25 mg WY QHS Qty: 12 0RF calcium polycarbophil [FiberCon] 625 mg tablet 1,250 mg PO QDAY Qty: 180 1RF midodrine 5 mg Tablet 10 mg PO 0700,1100,1500 Qty: 0 0RF magnesium hydroxide 400 mg/5 mL Suspension 30 ml PO X1 PRN (Reason: Constipation) Qty: 0 0RF carboxymethylcellulose sodium [Refresh Tears] 0.5 % Drops 2 drp EACH EYE Q1H PRN (Reason: DRY EYES) Qty: 0 0RF bisacodyl 10 mg Suppository 10 mg WY X1 PRN (Reason: Constipation) Qty: 0 0RF [...] 120 ml PO 4X/DAY Qty: 0 0RF sennosides-docusate sodium [Stimulant Laxative Plus] 8.6-50 mg Tablet 2 tab PO BID Qty: 0 0RF Primary Care Provider: Kwabena Menjivar Referrals: Kwabena Menjivar MD [Primary Care Provider] - Print Language: Bulgarian Disposition Disposition: Acute Care Hospital [facility] What to do if you have Problems For any increased pain, shortness of breath, bleeding, nausea or vomiting, chestpain, or any unexpected problems, contact your Primary Care Provider. Call [facility] ([phone]) or report to the closest Emergency Room. Call 911 if necessary. 08/05/24 1450 <Electronically signed by Kayode Woods DO> Cosigner Signature (if applicable): CC: Dr. Kwabena Menjivar MD ~ Signed [facility] Work Phone: 1(133) 816-639106-28-2025 Radiology [facility] Discharge summary Author Kayoed Woods [facility] Note Date/Time August 05, 2024 2:50 pm [facility] Medical Records Department [address] [place] [address] Emergency Department Summary 08/05/24 MR#: [id number] Acct: [id number] Name: YAS ROSA Rep #:[id number] : 1940 83 From: Kayode Woods DO PCP: Dr. Kwabena Menjivar MD Status :REG ER Location: ED HPI History of Present Illness Chief Complaint: Weakness Narrative Narrative: Patient is a 83-year-old male with past medical history anxiety, IBS, depression, GERD, cervical myelopathy with surgery back in April who presents [facility] emergency department with chief complaint of worsening generalized weakness. Patient states that he also is having dizziness but this has been going on since surgery as well and notes that this is intermittently. He states that he feels very weak and has hard time lifting his walker with his arms. He denies any new injuries falls or trauma to his head or neck. Patient denies recent contacts. States that he has been constipated for approximately 4 days now. But states that prior to this when he was having bowel movements he denied any black stools denied any blood in his stool [facility] Medical History Cervical myelopathy Angiectasia of large intestine History of gastric polyp GERD with esophagitis Postural dizziness with near syncope Bilateral arm weakness Osteoarthritis Anxiety and depression Ventral hernia Loss of hearing Wears glasses Wears dentures Alcohol use History of IBS Heartburn Former smoker History of stress test Home Medications ?Medication ?Instructions ?Recorded ?Last Taken ?Type sennosides 8.6 mg-docusate sodium 2 tab PO BID laxativ e #0 tabs 04/27/24 Unknown Rx 50 mg tablet (Stimulant Laxative Plus) benzocaine 15 mg-menthol 3.6 mg 1 juliet mucous membrane Q2H PRN PRN 05/18/24 Unknown Rx lozenges (Sore Throat (benzocaine SORE THROAT #0 ea with menthol)) bisacodyl 10 mg rectal suppository 10 mg W[place] X1 PRN Con stipation #0 ea 05/18/24 Unknown Rx carboxymethylcellulose sodium 0.5 2 drp EACH EYE Q1H P RN DRY EYES #0 05/18/24 Unknown Rx % eye drops (Refresh Tears) mL food supplemt, lactose-reduced 120 ml PO 4X/DAY #0 mL 05/18/24 Unknown Rx 0.08 gram-1.5 kcal/mL oral liquid (Ensure Plus High Protein) gabapentin 100 mg capsule 100 mg PO BIDCM #0 caps /1 Unknown Rx magnesium hydroxide 400 mg/5 mL 30 ml PO X1 PRN Consti pation #0 mL 05/18/24 Unknown Rx oral suspension menthol 0.44 %-zinc oxide 20.6 % 1 applic topical BID #0 grams 05/18/24 Unknown Rx topical ointment (Calmoseptine) midodrine 5 mg tablet 10 mg (2 x 5 mg) PO 0700,110 0,1500 05/18/24 Unknown Rx #0 tabs mirtazapine 15 mg tablet 15 mg PO QHS #0 tabs 5 Unknown Rx pantoprazole 40 mg tablet,delayed 40 mg PO BID #0 tabs 05/18/24 Unknown Rx release calcium polycarbophil 625 mg 1,250 mg (2 x 625 mg) PO QDAY #180 05/25/24 Unknown Rx tablet (FiberCon) tabs hydrocortisone acetate 25 mg 25 mg WY QHS #12 ea 05/25 Unknown Rx rectal suppository (Anusol-HC) Allergy/AdvReac Type Severity Reaction Status Date / Time No Known Allergies Allergy Verified 08/05/24 11:37 Family History Father , at 40 YOA of an MA Heart disease Other Hypertension Surgical History Status post cervical spinal fusion History of esophagogastroduodenoscopy (EGD) Hx of colonoscopy History of tonsillectomy and adenoidectomy History of appendectomy Social History household members: none and other details: He [...] type: does not use ROS ROS ED ROS Narrative Constitutional: Complains of lightheadedness, dizziness as noted above denies any fevers, chills, headaches Eyes: Denies change in vision double vision blurry vision Cardiovascular: Denies chest pain Respiratory: Denies coughing wheezing shortness of breath Abdomen: Complains of constipation denies any abdominal pain nausea vomit diarrhea states he is passing gas : Denies urinary symptoms Neurological: Complains of numbness and tingling in the bilateral upper extremities in the left lower extremity that has been going on since surgery again as noted above Musculoskeletal: Denies any new back pain Skin: Denies any rashes or lesions EXAM Physical Exam Narrative Exam Narrative: General: Patient is lying bed rest comfortably did not appear to be acute distress Head: Atraumatic, normocephalic Eyes: PERRL bilaterally, EOMI by, no conjunctival injection noted Neck: Soft, supple, trachea midline Cardiovascular: Regular rate and rhythm no murmurs gallops rubs noted Respiratory: Clear to auscultation bilaterally no rales rhonchi or wheezes noted Abdomen: Soft, nondistended, no tenderness palpation Extremities: +3/5 strength noted in the bilateral upper extremities, radial pulses +2/4 in the bilateral extremities, +4/5 strength noted in the bilateral lower extremities, no pedal edema on exam Neurological: Patient following commands knew that he was at [facility] the year is 2024. Sensation is decreased but equal in the bilateral upper extremities states that this is unchanged since the surgery, rest of sensation is grossly intact Skin: Warm, dry, intact no rashes or lesions noted Const Vital Signs: 08/05/24 11:33 08/05/24 12:11 08/05/24 13:19 Temperature 98.5 F Temperature Source Oral Pulse Rate 78 Pulse Rate [Lying] 73 Pulse Rate [Sitting (for 1 minute prior to obtaining)] 72 Pulse Rate [Standing (for 1 minute prior to obtaining)] 75 Respiratory Rate 18 Respiratory Effort Normal Respiratory Pattern Normal Blood Pressure 135/104 H Blood Pressure [Lying] 168/87 H Blood Pressure [Sitting (for 1 minute prior to obtaining)] 160/74 H Blood Pressure [Standing (for 1 minute prior to obtaining)] 143/73 H Blood Pressure Mean 114 Blood Pressure Mean [Lying] 114 Blood Pressure Mean [Sitting (for 1 minute prior to obtaining)] 102 Blood Pressure Mean [Standing (for 1 minute prior to obtaining)] 96 Pulse Ox 100 Oxygen Delivery Method Room Air 08/05/24 13:31 Temperature Temperature Source Pulse Rate 67 Pulse Rate [Lying] Pulse Rate [Sitting (for 1 minute prior to obtaining)] Pulse Rate [Standing (for 1 minute prior to obtaining)] Respiratory Rate 15 Respiratory Effort Respiratory Pattern Blood Pressure 187/74 H Blood Pressure [Lying] Blood Pressure [Sitting (for 1 minute prior to obtaining)] Blood Pressure [Standing (for 1 minute prior to obtaining)] Blood Pressure Mean 111 Blood Pressure Mean [Lying] Blood Pressure Mean [Sitting (for 1 minute prior to obtaining)] Blood Pressure Mean [Standing (for 1 minute prior to obtaining)] Pulse Ox 100 Oxygen Delivery Method Room Air MDM MDM MDM Narrative Medical decision making narrative: Patient is a 83-year-old male who presented to the emergency department with a chief complaint of generalized weakness that is worsening and not feeling well. On the differential diagnosis includes but not limited to UTI, pneumonia, intracranial hemorrhage, brain mass, deconditioning. Once workup is obtained reviewed he will be reevaluated. Patient be given IV fluids for hydration. Insert patient CBC reviewed and showed no evidence leukocytosis white blood count 8.4, hemoglobin 12.3, platelet count was 208. Patient sodium was 130, potassium normal at 4.3, creatinine was 0.87. Patient's AST and ALT were 25 and23 respectively. Patient's troponin 39 with a delta troponin pending at this point in time. Patient's lipase normal at 15, urinalysis shows negative nitrites negative leukocyte esterase have low suspicion for infection at this point in time. Patient's CT head and brain without contrast showed no acute intracranial processes. Patient CT cervical spine reviewed showed no acute cervical fracture or subluxation moderate multilevel degenerative change of the cervical spine cervical ACDF spanning C3-C6 with interbody spacers. Patient's orthostatic vital signs were positive he was given additional fluid. At this point time will discuss case with hospitalist for admission for generalized weakness, lives alone and will likely require placement for rehabilitation which family and patient is agreeable with this plan. Discussed the case with hospitalist Dr. Bradley who will accept the patient for admission. Patient was notified as well as family members at bedside they are agreeable with this plan all question concerns were answered. Lab Data Labs: Laboratory Results - last 24 hr 08/05/24 08/05/24 08/05/24 12:00 12:25 13:15 WBC 8.4 RBC 4.22 L Hgb 12.3 L Hct 37.0 L MCV 87.7 MCH 29.1 MCHC 33.2 RDW Std Deviation 41.0 RDW Coeff of Delia 12.9 Plt Count 208 MPV 8.7 Immature Gran % (Auto) 0.200 Neut % (Auto) 57.7 Lymph % (Auto) 31.4 Nobles % (Auto) 8.2 Eos % (Auto) 2.0 Baso % (Auto) 0.5 Absolute Neuts (auto) 4.8 Absolute Lymphs (auto) 2.63 Nucleated RBC % 0 Sodium 138 Potassium 4.3 Chloride 103 Carbon Dioxide 23.8 Anion Gap 12 BUN 18 Creatinine 0.87 Estim Creat Clear Calc 63.33 Est GFR (MDRD) Non-Af 86 BUN/Creatinine Ratio 21.1 H Glucose 93 Lactic Acid 1.3 Calcium 9.4 Total Bilirubin 0.41 AST 25 ALT 23 Alkaline Phosphatase 120 Troponin T High Sens 39 H D Total Protein 6.4 Albumin 4.0 Globulin 2.4 Albumin/Globulin Ratio 1.7 Lipase 15 Urine Color Yellow Urine Clarity Clear Urine pH 7.0 Ur Specific [place] 1.010 Urine Protein Negative Urine Glucose (UA) Normal Urine Ketones Negative Urine Occult Blood Negative Urine Nitrite Negative Urine Bilirubin Negative Urine Urobilinogen Normal Ur Leukocyte Esterase Negative Radiography Diagnostic Testing: Clinical Impression(s) from Imaging Studies Brain CT 08/05/24 12:10 IMPRESSION: No acute intracranial process. Reading Location: [facility] Cervical Spine CT 08/05/24 12:10 IMPRESSION: No acute cervical fracture or subluxations. Moderate multilevel degenerative changes of the cervical spine as above. Cervical ACDF spanning C3-C6 with interbody spacers. Reading Location: [facility] Discharge Plan Triage Chief Complaint: Weakness ED Provider: Kayode Woods Dx/Rx/DC Orders Clinical Impression: Orthostatic hypotension, Lightheadedness, Generalized weakness Prescriptions: No Action hydrocortisone acetate [Anusol-HC] 25 mg suppository 25 mg WY QHS Qty: 12 0RF calcium polycarbophil [FiberCon] 625 mg tablet 1,250 mg PO QDAY Qty: 180 1RF midodrine 5 mg Tablet 10 mg PO 0700,1100,1500 Qty: 0 0RF magnesium hydroxide 400 mg/5 mL Suspension 30 ml PO X1 PRN (Reason: Constipation) Qty: 0 0RF carboxymethylcellulose sodium [Refresh Tears] 0.5 % Drops 2 drp EACH EYE Q1H PRN (Reason: DRY EYES) Qty: 0 0RF bisacodyl 10 mg Suppository 10 mg WY X1 PRN (Reason: Constipation) Qty: 0 0RF [...] 120 ml PO 4X/DAY Qty: 0 0RF sennosides-docusate sodium [Stimulant Laxative Plus] 8.6-50 mg Tablet 2 tab PO BID Qty: 0 0RF Primary Care Provider: Kwabena Menjivar Referrals: Kwabena Menjivar MD [Primary Care Provider] - Print Language: Bulgarian Disposition Disposition: Acute Care Hospital [facility] What to do if you have Problems For any increased pain, shortness of breath, bleeding, nausea or vomiting, chestpain, or any unexpected problems, contact your Primary Care Provider. Call [facility] ([phone]) or report to the closest Emergency Room. Call 911 if necessary. 08/05/24 1450 <Electronically signed by Kayode Woods DO> Cosigner Signature (if applicable): CC: Dr. Kwabena Menjivar MD ~ Signed [facility] Work Phone: 1(656) 236-367506-28-2025 Radiology [facility] study [facility]06-13-2025 Radiology Diagnostic study [facility]04-17-2025 Radiology Diagnostic study note [facility] Imaging Services [address] [place], [place] [address] Abdomen Single View MR#: [id number] Acct: [id number] Name: YAS ROSA Rep #: [id number] : 1940 M 83 From: Oren Narvaez DO PCP: Dr. Kwabena Menjivar MD Status: REG CLI Study:Abdomen Single View Date of Exam: 05/25/24 Exam# [id number] Ordering Dr: Sonia Isbell YIELD ENGINEER-C PROCEDURE: Abdominal radiographs, two views 05/25/2024 REASON [...] developing fecal impaction. Reading Location: [facility] CC: LEONIDAS Isbell; Dr. Kwabena Menjivar MD ~ Rehabilitation Director: Signed [facility]04-17-2025 Evaluation note* Diagnosis Onset Date Resolution Status Admit Date Constipation acute May 25, 2024 12:30pm Fecal incontinence acute May 25, 2024 12:30pm Status post cervical spinal fusion acute June 01, 2024 3:28pm Cervical myelopathy inactive June 01, 2024 3:28pm Status post cervical spinal fusion acute August 03, 2024 3:03pm Cervical myelopathy inactive August 03, 2024 3:03pm Generalized weakness acute August 06, 2024 1:22pm Orthostatic lightheadedness resolved August 06, 2024 1:22pm [facility] [employer] Work Phone: 1(462) 190-718304-10-2025 Discharge summary Author Mariano Chan [facility] Note Date/Time May 18, 2024 9:0 3am [facility] Medical Records Department [address] [place] [address] Transfer to [facility] Care MR#: [id number] Acct: [id number] Name: YAS ROSA Rep #:[id number] : 1940 83 From: Mariano Chan MD PCP: Dr. Kwabnea Menjivar MD Status :ADM IN Certification of patient admission REQUIRED AT TIME OF ADMISSION. I CERTIFY THAT POST-HOSPITAL ECF SERVICES ARE REQUIRED TO BE GIVEN ON AN IN-PATIENT BASIS BECAUSE OF THE ABOVE NAMED PATIENT'S NEED FOR SKILLED NURSING CARE ON A CONTINUING BASIS FOR THE CONDITION(S) FOR WHICH HE/SHE WAS RECEIVING IN-PATIENT HOSPITAL SERVICES PRIOR TO HIS/HER TRANSFER TO THE F. 05/18/24 0903<Electronically signed by Mariano Chan MD> Diet Diet Order/Speech Therapy: 05/09/24 11:34 Diet: Regular - General Food consistency:: Pureed Liquid Consistency:: Ashmore/Mildly Thick Type of Dietary Supplement:: Magic Cup [...] Recommendations Dietitian Recommendations/Changes: Continue regular diet per MEAT PRODUCTS DEMONSTRATOR consistency/recommendations. Continue 120ml EPHP 4x daily with medpass, prefers vanilla or strawberry. Adjust to vanilla magic cup with dinner. Will order vanilla fortified pudding with breakfast and lunch. Will monitor weight trends. 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 MEAT PRODUCTS DEMONSTRATOR informally assessed pt vocal quality through the [...] sustained manner appropriately despite max cues from MEAT PRODUCTS DEMONSTRATOR. Pt. would often substitute /sh/ for /s/. Maximum Phonation of /ah/ -Sustained /ah/: average of 10.73 seconds IMPAIRED Findings indicate poor breath support and glottis sufficiency. Discharge Plan Admission Admit Date/Time: 04/27/24 15:15 Primary Reason for Your Visit: Debility. Attending Provider: Corazon Wright Primary Care Provider: Kwabena Menjivar Instructions Additional Instructions / Restrictions: Discharge to [facility] 05/20/2024, skilled. Discharge Orders/Prescriptions Prescriptions: New midodrine [...] 0RF bisacodyl 10 mg Suppository 10 mg WY X1 PRN (Reason: Constipation) Qty: 0 0RF [...] in before D/C Order can be placed): [facility] (4) Dysphagia Qualifiers: Dysphagia type: pharyngeal phase Qualified Code(s): R13.13 - Dysphagia, pharyngeal phase 05/18/24 0903 <Electronically signed by Mariano Chan MD> Cosigner Signature (if applicable): CC: Dr. Kwabena Menjivar MD ~ [facility] Work Phone: 1(960) 135-961004-10-2025 Discharge summary Author [facility] Note Date/Time May 18, 2024 9:0 2am [facility] Medical Records Department [address] [place] [address] Discharge Summary 05/18/24 0852 MR#: [id number] Acct: [id number] Name: YAS ROSA Rep #:[id number] : 1940 83 From: Mariano Chan MD PCP: Dr. Kwabena Menjivar MD Status :ADM IN Location: [place] [address] Providers Date of Admission: 04/27/24 Primary Care [...] bisacodyl 10 mg rectal suppository 10 mg WY X1 PRN Constipation #0 ea 05/18/24 carboxymethylcellulose [...] C-collar over the next week. Discharge to [facility] 05/20/2024, skilled. Physical Exam Const alert General [...] Discharge instructions: No Additional Instructions: Discharge to [facility] 05/20/2024, skilled. Meaningful Use Info Meaningful Use [...] Instructions Additional Instructions / Restrictions: Discharge to [facility] 05/20/2024, skilled. Discharge Orders/Prescriptions Prescriptions: New midodrine [...] 0RF bisacodyl 10 mg Suppository 10 mg WY X1 PRN (Reason: Constipation) Qty: 0 0RF [...] in before D/C Order can be placed): [facility] 05/18/24 0902 <Electronically signed by Mariano Chan MD> Cosigner Signature (if applicable): CC: Dr. Kwabena Menjivar MD; Dr. Mariano Chan MD~ Signed [facility] Work Phone: 1(601) 142-474204-10-2025 Discharge summary [facility] Medical Records Department [address] [place] [address] Transfer to Extended Care MR#: [id number] Acct: [id number] Name: YAS ROSA Rep #:[id number] : 1940 83 From: Mariano Chan MD PCP: Dr. Kwabena Menjivar MD Status :ADM IN Certification of patient admission REQUIRED AT TIME OF ADMISSION. I CERTIFY THAT POST-HOSPITAL ECF SERVICES ARE REQUIRED TO BE GIVEN ON AN IN-PATIENT BASIS BECAUSE OF THE ABOVE NAMED PATIENT'S NEED FOR SKILLED NURSING CARE ON A CONTINUING BASIS FOR THE CONDITION(S) FOR WHICH HE/SHE WAS RECEIVING IN-PATIENT HOSPITAL SERVICES PRIOR TO HIS/HER TRANSFER TO THE ECF. 05/18/24 0903 Diet Diet Order/Speech Therapy: 05/09/24 11:34 Diet: Regular - General Food consistency:: Pureed Liquid Consistency:: Ashmore/Mildly Thick Type of Dietary Supplement:: Magic Cup [...] Recommendations Dietitian Recommendations/Changes: Continue regular diet per MEAT PRODUCTS DEMONSTRATOR consistency/recommendations. Continue 120ml EPHP 4x daily with medpass, prefers vanilla or strawberry. Adjust to vanilla magic cup with dinner. Will order vanilla fortified pudding with breakfast and lunch. Will monitor weight trends. 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 MEAT PRODUCTS DEMONSTRATOR informally assessed pt vocal quality through the [...] sustained manner appropriately despite max cues from MEAT PRODUCTS DEMONSTRATOR. Pt. would often substitute /sh/ for /s/. Maximum Phonation of /ah/ -Sustained /ah/: average of 10.73 seconds IMPAIRED Findings indicate poor breath support and glottis sufficiency. Discharge Plan Admission Admit Date/Time: 04/27/24 15:15 Primary Reason for Your Visit: Debility. Attending Provider: Corazon Wright Primary Care Provider: Kwabena Menjivar Instructions Additional Instructions / Restrictions: Discharge to [facility] 05/20/2024, skilled. Discharge Orders/Prescriptions Prescriptions: New midodrine [...] 0RF bisacodyl 10 mg Suppository 10 mg WY X1 PRN (Reason: Constipation) Qty: 0 0RF [...] in before D/C Order can be placed): [facility] (4) Dysphagia Qualifiers: Dysphagia type: pharyngeal phase Qualified Code(s): R13.13 - Dysphagia, pharyngeal phase 05/18/24 0903 Cosigner Signature (if applicable): CC: Dr. Kwabena Menjivar MD ~ [facility]04-10-2025 Discharge summary [facility] Medical Records Department [address] [place] [address] Discharge Summary 05/18/24 0852 MR#: [id number] Acct: [id number] Name: YAS ROSA Rep #:[id number] : 1940 83 From: Mariano Chan MD PCP: Dr. Kwabena Menjivar MD Status :ADM IN Location: [place] [address] Providers Date of Admission: 04/27/24 Primary Care [...] bisacodyl 10 mg rectal suppository 10 mg WY X1 PRN Constipation #0 ea 05/18/24 carboxymethylcellulose [...] C-collar over the next week. Discharge to [facility] 05/20/2024, skilled. Physical Exam Const alert General [...] Discharge instructions: No Additional Instructions: Discharge to [facility] 05/20/2024, skilled. Meaningful Use Info Meaningful Use [...] Instructions Additional Instructions / Restrictions: Discharge to [facility] 05/20/2024, skilled. Discharge Orders/Prescriptions Prescriptions: New midodrine [...] 0RF bisacodyl 10 mg Suppository 10 mg WY X1 PRN (Reason: Constipation) Qty: 0 0RF [...] in before D/C Order can be placed): [facility] 05/18/24 0902 Cosigner Signature (if applicable): CC: Dr. Kwabena Menjivar MD; Dr. Mariano Chan MD~ Signed [facility]04[facility]10[facility] Progress note Author Mariano Dustin [facility] Note Date/Time May 17, 2024 8:15 am [facility] Medical Records Department [address] [place] [address] Progress Note - Rehab 05/17/24812 MR#: [id number] Acct: [id number] Name: YAS ROSA Rep #:[id number] : 1940 83 From: Mariano Chan MD PCP: Dr. Kwabena Menjivar MD Status :ADM IN Location: [place] [address] Subjective Subjective Patient seen, examined. He is [...] Cosigner Signature (if applicable): CC: ~ Signed [facility] Work Phone: 1(420) 333-537004-09-2025 Progress note [facility] Medical Records Department [address] [place] [address] Progress Note - Rehab 05/17/24812 MR#: [id number] Acct: [id number] Name: YAS ROSA Rep #:[id number] : 1940 83 From: Mariano Chan MD PCP: Dr. Kwabena Menjivar MD Status :ADM IN Location: [address] Subjective Subjective Patient seen, examined. He [...] Cosigner Signature (if applicable): CC: ~ Signed [facility]04-08-2025 Progress note Author Mariano Chan [facility] Note Date/Time May 16, 2024 8:25 am [facility] Medical Records Department [address] [place] [address] Progress Note - Rehab 05/16/24820 MR#: [id number] Acct: [id number] Name: YAS ROSA Rep #:[id number] : 1940 83 From: Mariano Chan MD PCP: Dr. Kwabena Menjivar MD Status :ADM IN Location: [place] [address] Subjective Subjective Patient seen, examined. Elayne from OT present. Milan is out of c-collar for breakfast. He was able to walk to the bathroom today instead of using wheelchair, plan is discharge to [facility] in 4 days. Objective Data Objective [...] Cosigner Signature (if applicable): CC: ~ Signed [facility] Work Phone: 1(359) 922-461404-08-2025 Progress note [facility] Medical Records Department [address] [place] [address] Progress Note - Rehab 05/16/24820 MR#: [id number] Acct: [id number] Name: YAS ROSA Rep #:[id number] : 1940 83 From: Mariano Chan MD PCP: Dr. Kwabena Menjivar MD Status :ADM IN Location: [place] [address] Subjective Subjective Patient seen, examined. Elayne from OT present. [place] is out of c-collar for breakfast. He was able towalk to the bathroom today instead of using wheelchair, plan is discharge to [facility] in 4 days. Objective Data Objective [...] Cosigner Signature (if applicable): CC: ~ Signed [facility]04-07-2025 Progress note Author Mariano Chan [facility] Note Date/Time May 15, 2024 7:49 am [facility] Medical Records Department [address] [place] [address] Progress Note - Rehab 05/15/24746 MR#: [id number] Acct: [id number] Name: YAS ROSA Rep #:[id number] : 1940 83 From: Mariano Chan MD PCP: Dr. Kwabena Menjivar MD Status :ADM IN Location: [place] [address] Subjective Subjective Patient seen, examined. He told [...] Cosigner Signature (if applicable): CC: ~ Signed [facility] Work Phone: 1(532) 838-945604-07-2025 Progress note [facility] Medical Records Department [address] [place] [address] Progress Note - Rehab 05/15/2447 MR#: [id number] Acct: [id number] Name: YAS ROSA Rep #:[id number] : 1940 83 From: Mariano Chan MD PCP: Dr. Kwabena Menjivar MD Status :ADM IN Location: [place] [address] Subjective Subjective Patient seen, examined. He told [...] Cosigner Signature (if applicable): CC: ~ Signed [facility]04-04-2025 Progress note Author Mariano Chan [facility] Note Date/Time May 12, 2024 8:08 am [facility] Medical Records Department [address] [place] [address] Progress Note - Rehab 05/12/24801 MR#: [id number] Acct: [id number] Name: YAS ROSA Rep #:[id number] : 1940 83 From: Mariano Chan MD PCP: Dr. Kwabena Menjivar MD Status :ADM IN Location: [place] [address] Subjective Subjective Patient seen, examined. Dr. Diego [...] Catheter Urine Culture - Preliminary GNR lactose escort service attendant 04/27/24 22:05 Urine Catheter - Catheter Urine [...] culture growing 50,000 to 80,000 gnr lactose escort service attendant, Cipro 250mg bid x 7 days. * Nutrition - Ensure Plus 120mL 4x/day. * Neuropathic pain - Gabapentin 100mg bidcm. * Skin irritation - Calmoseptine topical bid. * Orthostatic hypotension - Midodrine 10mg tid. * Depression/Insomnia/appetite loss - Mirtazapine 15mg qhs. * GERD - Pantoprazole 40mg bid. 05/12/24807 <Electronically signed by Mariano Chan MD> Cosigner Signature (if applicable): CC: ~ Signed [facility] Work Phone: 1(952) 492-169604-04-2025 Progress note [facility] Medical Records Department [address] [place] [address] Progress Note - Rehab 05/12/24801 MR#: [id number] Acct: [id number] Name: YAS ROSA Rep #:[id number] : 1940 83 From: Mariano Chan MD PCP: Dr. Kwabena Menjivar MD Status :ADM IN Location: [place] [address] Subjective Subjective Patient seen, examined. Dr. Diego [...] Catheter Urine Culture - Preliminary GNR lactose escort service attendant 04/27/24 22:05 Urine Catheter - Catheter Urine [...] culture growing 50,000 to 80,000 gnr lactose escort service attendant, Cipro 250mg bid x 7 days. * Nutrition - Ensure Plus 120mL 4x/day. * Neuropathic pain - Gabapentin 100mg bidcm. * Skin irritation - Calmoseptine topical bid. * Orthostatic hypotension - Midodrine 10mg tid. * Depression/Insomnia/appetite loss - Mirtazapine 15mg qhs. * GERD - Pantoprazole 40mg bid. 05/12/24 0808 Cosigner Signature (if applicable): CC: ~ Signed [facility]04-03-2025 Progress note Author Ciro Diego [facility] Note Date/Time May 11, 2024 2:35 pm [facility] Medical Records Department [address] [facility] [place] [address] Progress Note - Orthopedic 05/11/24 1426 MR#: [id number] Acct: [id number] Name: MOEYAS Brigido Rep #:[id number] : 1940 83 From: Ciro Diego MD PCP: Dr. Kwabena Menjivar MD Status :ADM IN Location: [place] [address]1 Subjective Subjective Saw patient in [facility] today as a 2-week follow-up. Patient comfortable [...] Catheter Urine Culture - Preliminary GNR lactose escort service attendant 04/27/24 22:05 Urine Catheter - Catheter Urine Culture - Final Culture exhibits no growth. 04/29/24 22:20 Stool Stool Occult Blood (JERMAINE) - Final Radiography Diagnostic Testing: Radiology Impression Cervical Spine X-Ray 05/10/24 15:00 IMPRESSION: Stable ACDF hardware. No acute fracture or traumatic listhesis. Reading Location: [facility] Physical Exam Narrative Examination the neck [...] Cosigner Signature (if applicable): CC: ~ Signed [facility] Work Phone: 1(562) 311-790004-03-2025 Progress note [facility] Medical Records Department [address] [place] [address] Progress Note - Orthopedic 05/11/24 1426 MR#: [id number] Acct: [id number] Name: YAS ROSA Rep #:[id number] : 1940 83 From: Ciro Diego MD PCP: Dr. Kwabena Menjivar MD Status :ADM IN Location: [place] [address]1 Subjective Subjective Saw patient in [facility] today as a 2-week follow-up. Patient comfortable [...] Catheter Urine Culture - Preliminary GNR lactose escort service attendant 04/27/24 22:05 Urine Catheter - Catheter Urine Culture - Final Culture exhibits no growth. 04/29/24 22:20 Stool Stool Occult Blood (JERMAINE) - Final Radiography Diagnostic Testing: Radiology Impression Cervical Spine X-Ray 05/10/24 15:00 IMPRESSION: Stable ACDF hardware. No acute fracture or traumatic listhesis. Reading Location: [facility] Physical Exam Narrative Examination the neck [...] Cosigner Signature (if applicable): CC: ~ Signed [facility]04-02-2025 Progress note Author Mairano Chan [facility] Note Date/Time May 10, 2024 5:41 pm [facility] Medical Records Department [address] [place] [address] Progress Note - Rehab 05/10/24 1731 MR#: [id number] Acct: [id number] Name: YAS ROSA Rep #:[id number] : 1940 83 From: Mariano Chan MD PCP: Dr. Kwabena Menjivar MD Status :ADM IN Location: [place] [address] Subjective Subjective Patient seen, examined. He seems [...] Sl. Cloudy, Urine pH 6.0, Ur Specific [place] 1.015, Urine Protein 500 H, Urine Glucose [...] acute fracture or traumatic listhesis. Reading Location: [facility] Indicators for Scoring Admitted with or [...] Cosigner Signature (if applicable): CC: ~ Signed [facility] Work Phone: 1(457) 119-610504-02-2025 Progress note [facility] Medical Records Department [address] [place] [address] Progress Note - Rehab 05/10/24 1731 MR#: [id number] Acct: [id number] Name: YAS ROSA Brigido Rep #:[id number] : 1940 83 From: Mariano Chan MD PCP: Dr. Kwabena Menjivar MD Status :ADM IN Location: [place] [address]1 Subjective Subjective Patient seen, examined. He seems [...] Sl. Cloudy, Urine pH 6.0, Ur Specific [place] 1.015, Urine Protein 500 H, Urine Glucose [...] acute fracture or traumatic listhesis. Reading Location: [facility] Indicators for Scoring Admitted with or [...] * GERD - Pantoprazole 40mg bid. 05/10/24 1743 Cosigner Signature (if applicable): CC: ~ Signed [facility]04-02-2025 Radiology Diagnostic study note [facility] Imaging Services [address] [place] [address] Cerv Spine 2 or 3 Views MR#: [id number] Acct: [id number] Name: YSA ROSA Rep #: [id number] : 1940 M 83 From: Lisa Bailey MD PCP: Dr. Kwabena Menjivar MD Status: ADM IN Study:Cerv Spine 2 or 3 Views Date of Exam: 05/10/24 Exam# [id number] Ordering Dr: Sherwin Clark PROCEDURE: CERV SPINE [...] acute fracture or traumatic listhesis. Reading Location: [facility] CC: YIELD ENGINEER-C Beronica Clark; Dr. Kwabena Menjivar MD ~ Rehabilitation Director: Signed [facility]04-01-2025 Progress note Author Corazon Wright [facility] Note Date/Time May 09, 2024 12:5 2pm [facility] Medical Records Department [address] [place] [address] Progress Note 05/09/24 1035 MR#: [id number] Acct: [id number] Name: YAS ROSA Rep #:[id number] : 1940 83 From: Corazon Wright DO PCP: Dr. Kwabena Menjivar MD Status :ADM IN Location: [id number] Subjective Subjective Afebrile VSS -blood pressure this [...] but, no erythema of the anterior neck. [place] J collar is in place. Psych Psych [...] esophageal dysmotility. Charges/Coding Visit Charges Inpatient E&M: 13488 Subs Hosp L1 05/09/24 1252 <Electronically signed by Corazon Wright DO> Corazon Wright DO Cosign Signature (if applicable): CC: ~ Signed [facility] Work Phone: 1(955) 339-543604-01-2025 Procedure note [facility] Speech Pathology [address] [place] [address] Modified Barium Swallow Study MR#: [id number] Acct: [id number] Name: YAS ROSA Brigido Rep #:[id number] : 1940 83 From: Lalita jacobson M.A. [facility]ON[employer] Modified Barium Swallow Patient Information Study Date: 05/09/24 Study Time: 10:00 Direct Billable Minutes: 120 Total Minutes procedure & reportin Diagnosis: Pharyngeal dysphagia Referring Physician: Corazon Wright Medical History: The patient presented to [facility] ED 04/19/2024 after a fall at [...] Result: 8= enters airway/below vocal folds/no effort [place] Thick Liquid via teaspoon: Result: 2= enter airway/above vocal folds/ejected [place] Thick Liquid via small single sip: cup: [...] 3: Result: 2= enter airway/above vocal folds/ejected [place] Thick Liquid via single sip: straw: Result: 1= does not enter airway [place] Thick Liquid via single sip: straw Trial [...] Status Active ST Patient: Active Contact Information [facility] Speech Therapy:: Lalita Grande M.A. [employer] Speech-Language Pathologist [address] [place] [address] [email or web address] [phone] 05/09/24 1253 marti Daigle CCC-[employer]ODU[employer] DEMONSTRATOR> Date/Time Lalita Grande M.A., [employer] DEMON[employer]ATOR Co-Signature Required for all Medicare patients Date/Time Co-Signature CC: ~ [facility]04-01-2025 Progress note [facility] Medical Records Department [address] [place] [address] Progress Note 05/09/24 1035 MR#: [id number] Acct: [id number] Name: YAS ROSA Rep #:[id number] : 1940 83 From: Corazon Wright DO PCP: Dr. Kwabena Menjivar MD Status :ADM IN Location: [place] [address] Subjective Subjective Afebrile VSS -blood pressure this [...] but, no erythema of the anterior neck. [place] J collar is in place. Psych Psych [...] esophageal dysmotility. Charges/Coding Visit Charges Inpatient E&M: 95474 [facility] Hosp L1 05/09/24 1252 Corazon Wright DO Cosigner Signature (if applicable): CC: ~ Signed [facility]03-31-2025 Progress note Author Corazon Demetriusgavin [facility] Note Date/Time May 08, 2024 2:3 8pm [facility] Medical Records Department [address] [place] [address] Progress Note 05/08/24 0956 MR#: [id number] Acct: [id number] Name: YAS ROSA Rep #:[id number] : 1940 83 From: Corazon Wright DO PCP: Dr. Kwabena Menjivar MD Status :ADM IN Location: [place] [address] Subjective Subjective Milan was seen on team [...] choose from. Charges/Coding Visit Charges Inpatient E&M: 49779 Sub[facility] Hosp L2 05/08/24 1438 <Electronically signed by Corazon Wright DO> Corazon Wright DO Cosigner Signature (if applicable): CC: ~ Signed [facility] Work Phone: 1(304) 947-214303-31-2025 Progress note [facility] Medical Records Department [address] [place] [address] Progress Note 05/08/24 0956 MR#: [id number] Acct: [id number] Name: YAS ROSA Brigido Rep #:[id number] : 1940 83 From: Corazon Wright PCP: Dr. Kwabena Menjivar MD Status :ADM IN Location: [id number] Subjective Subjective Milan was seen on team [...] choose from. Charges/Coding Visit Charges Inpatient E&M: 00425 Subs Hosp L2 05/08/24 1438 Corazon Wright DO Cosigner Signature (if applicable): CC: ~ Signed [facility]03-28-2025 Progress note Author Corazon Demetriusgavin [facility] Note Date/Time May 05, 2024 1:2 0pm [facility] Medical Records Department [address] [place] [address] Progress Note 05/05/24 1103 MR#: [id number] Acct: [id number] Name: YAS ROSA Rep #:[id number] : 1940 83 From: Corazon Wright DO PCP: Dr. Kwabena Menjivar MD Status :ADM IN Location: [place] [address] Subjective Subjective Afebrile Heart rate continues to [...] need to go [place]. 5. Needs to follow up with psychiatry for meds and psychotherapy. Charges/Coding Visit Charges Inpatient E&M: 69765 Subs Hosp L1 05/05/24 1320 <Electronically signed by Corazon Wright DO> Corazon Wright DO Cosigner Signature (if applicable): CC: ~ Signed [facility] Work Phone: 1(160) 496-187203-28-2025 Progress note [facility] Medical Records Department [address] [place] [address] Progress Note 05/05/24 1103 MR#: [id number] Acct: [id number] Name: YAS ROSA Rep #:[id number] : 1940 83 From: Corazon Wright DO PCP: Dr. Kwabena Menjivar MD Status :ADM IN Location: [place] [address] Subjective Subjective Afebrile Heart rate continues to [...] need to go to a facility [place] from [place]hab. 5. Needs to follow up with psychiatry for meds and psychotherapy. Charges/Coding Visit Charges Inpatient E&M: 99968 [facility] Hosp L1 05/05/24 1320 Corazon Wright DO Cosigner Signature (if applicable): CC: ~ Signed [facility]03-26-2025 Progress note Author Corazon [facility] Note Date/Time May 03, 2024 1:2 7pm [facility] Medical Records Department [address] [place] [address] Progress Note 05/03/24 1227 MR#: [id number] Acct: [id number] Name: YAS ROSA Rep #:[id number] : 1940 83 From: Corazon Wright DO PCP: Dr. Kwabena Menjivar MD Status :ADM IN Location: [place] [address]1 Subjective Subjective Afebrile VSS -blood pressure over [...] the AM. Charges/Coding Visit Charges Inpatient E&M: 85761 Subs Hosp L1 05/03/24 1327 <Electronically signed by Corazon Wright DO> Corazon Wright DO Cosigner Signature (if applicable): CC: ~ Signed [facility] Work Phone: 1(371) 647-818703-26-2025 Progress note [facility] Medical Records Department [address] [place] [address] Progress Note 05/03/24 1227 MR#: [id number] Acct: [id number] Name: YAS ROSA Rep #:[id number] : 1940 83 From: Corazon Wright DO PCP: Dr. Kwabena Menjivar MD Status :ADM IN Location: [place] [address]1 Subjective Subjective Afebrile VSS -blood pressure over [...] the AM. Charges/Coding Visit Charges Inpatient E&M: 09828 [facility] Hosp L1 05/03/24 1327 Corazon Wright DO Cosigner Signature (if applicable): CC: ~ Signed [facility]03-25-2025 Progress note Author Corazon Wright [facility] Note Date/Time May 02, 2024 4:5 7pm [facility] Medical Records Department [address] [place] [address] Progress Note 05/02/24 1236 MR#: [id number] Acct: [id number] Name: YAS ROSA Rep #:[id number] : 1940 83 From: Corazon Wright DO PCP: Dr. Kwabena Menjivar MD Status :ADM IN Location: [place] [address] Subjective Subjective Afebrile VSS -blood pressure over [...] [facility] [place] [facility] Medication list reviewed. Has not taken [...] 3 days Charges/Coding Visit Charges Inpatient E&M: 13556 Subs Hosp L1 05/02/24 1657 <Electronically signed by Corazon Wright DO> Corazon Wright DO Cosigner Signature (if applicable): CC: ~ Signed [facility] Work Phone: 1(284) 863-101203-25-2025 Progress note [facility] Medical Records Department [address] [place] [address] Progress Note 05/02/24 1236 MR#: [id number] Acct: [id number] Name: YAS ROSA Rep #:[id number] : 1940 83 From: Corazon Wright DO PCP: Dr. Kwabena Menjivar MD Status :ADM IN Location: [place] [address] Subjective Subjective Afebrile VSS -blood pressure over [...] 3 days Charges/Coding Visit Charges Inpatient E&M: 80775 Subs Hosp L1 05/02/24 1657 Corazon Wright DO Cosigner Signature (if applicable): CC: ~ Signed [facility]03-25-2025 Progress note Author Corazon Wright [facility] Note Date/Time May 02, 2024 2:1 3pm [facility] Medical Records Department [address] [place] [address] Progress Note 05/01/24 1234 MR#: [id number] Acct: [id number] Name: YAS ROSA Rep #:[id number] : 1940 83 From: Corazon Wright DO PCP: Dr. Kwabena Menjivar MD Status :ADM IN Location: [place] [address]1 Subjective Subjective Milan was seen on team [...] continue IVF's. Charges/Coding Visit Charges Inpatient E&M: 24360 Subs Hosp L2 05/02/24 1413 <Electronically signed by Corazon Wright DO> Corazon Wright DO Cosigner Signature (if applicable): CC: ~ Signed [facility] Work Phone: 1(350) 613-265903-25-2025 Progress note [facility] Medical Records Department [address] [place] [address] Progress Note 05/01/24 1234 MR#: [id number] Acct: [id number] Name: YAS ROSA Rep #:[id number] : 1940 83 From: Corazon Wright DO PCP: Dr. Kwabena Menjivar MD Status :ADM IN Location: [place] [address]1 Subjective Subjective Milan was seen on team [...] L, MPV 8.6, Sodium 141, Potassium 4.5, Nuyfacrw538 H, Carbon Dioxide 23.7, Anion Gap 8, [...] continue IVF's. Charges/Coding Visit Charges Inpatient E&M: 34056 Subs Hosp L2 05/02/24 1413 Corazon Wright DO Cosigner Signature (if applicable): CC: ~ Signed [facility]03-21-2025 History and physical note Author Corazon [facility] Note Date/Time April 28, 2024 3:3 5pm [facility] Medical Records Department [address] [place] [address] Post Admission Physician Eval 04/28/24 1241 MR#: [id number] Acct: [id number] Name: YAS ROSA Rep #:[id number] : 1940 83 From: Corazon Wright DO PCP: Dr. Kwabena Menjivar MD Status :ADM IN Location: [place] [address] Admission Information Primary Diagnosis:: DEBILITY DUE TO [...] Skin integrity and Medication Management Patient needs Rn Child/ Case Management for: Discharge Planning, Arranging Home [...] TBD Was Preadmission Assessment Accurate?: Yes 04/28/24 6310 <Electronically signed by Corazon Wright DO> Cosigner Signature (if applicable): CC: ~ Signed [facility] Work Phone: 1(385) 480-799003-21-2025 History and physical note Author [facility] Note Date/Time April 28, 2024 3:2 4pm [facility] Medical Records Department [address] [place] [address] History & Physical Exam 04/28/24 1015 MR#: [id number] Acct: [id number] Name: YAS ROSA Rep #:[id number] : 1940 83 From: Corazon Wright DO PCP: Dr. Kwabena Menjivar MD Status :ADM IN Location: [id number] [facility] - General General Date of Admission: 04/27/24 [...] vertigo. He presented to the ED at [facility] on 04/19/24 after having a fall [...] meds at presentation to the emergency department. [facility] Medical History (Updated 04/28/24 @ 15:16 [...] Father , at 40 YOA of an [place] Heart disease Other Hypertension Surgical History (Updated [...] is subluxed dueto muscle atrophy. 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 R arm falls immediately to the bed when I lift it up. He has some tone in the R triceps, biceps and brachioradialis muscle. Has shoulder shrug BL which is about even. NO tremors. R energy conservation technician is weak and heb is R hand dominant. He can lift both legs off the bed and hold for 5 sec. Good plantar flexion and dorsiflexion with both feet. PERRLA. No faciall droop. No nystagmus. Tracks well and did not have vertigo Psych mental status grossly normal, thought process normal and cooperative Psych Narrative: depressed affect. Not suicidal......his jain (Baptism) feels this is a sinand you will [...] Clarity Clear, Urine pH 5.0, Ur Specific [place] 1.020, Urine Protein 15 H, Urine Glucose [...] completing documentation. Charges/Coding Visit Charges Inpatient E&M: 99945 Init Hosp L3 04/28/24 3866 <Electronically signed by Corazon Wright DO> Cosigner [...] MD; Dr. Corazon Wright DO ~* Signed [facility] Work Phone: 1(255) 948-461003-21-2025 History and physical note [facility] Medical Records Department [address] [place] [address] Post Admission Physician Eval 04/28/24 1241 MR#: [id number] Acct: [id number] Name: YAS ROSA Rep #:[id number] : 1940 83 From: Corazon Wright DO PCP: Dr. Kwabena Menjivar MD Status :ADM IN Location: [place] [address] Admission Information Primary Diagnosis:: DEBILITY DUE TO [...] Skin integrity and Medication Management Patient needs Rn Child/ Case Management for: Discharge Planning, Arranging Home [...] body bathing and lower body [facility] adaptive equipment as needed.) Patient will perform Tub/Shower transfer at: - (Min assist with DME as needed) Patient will complete grooming at: - (Minimal assistance while seated at the sink) Patient will achieve: - (12 steps with 1 handrail to allow [facility] ) Patient will have pain level of: of 3 or less Patient's skin will: remain intact Patient will receive: adequate nutrition. Discharge Planning Pt Prognosis for Sig. Practical Improv. w/in Reasonable Time: Good Estimated Length of stay (days): 28 Anticipated D/C Destination: TBD Was Preadmission Assessment Accurate?: Yes 04/28/24 2840 Cosigner Signature (if applicable): CC: ~ Signed [facility]03-21-2025 History and physical note [facility] Medical Records Department [address] [place] [address] History & Physical Exam 04/28/24 1015 MR#: [id number] Acct: [id number] Name: YAS ROSA Rep #:[id number] : 1940 83 From: Corazon Wright DO PCP: Dr. Kwabena Menjivar MD Status :ADM IN Location: [address] General General Date of Admission: 04/27/24 [...] vertigo. He presented to the ED at [facility] on 04/19/24 after having a fall [...] prescribed meds at presentation to theemergency department. [facility] Medical History (Updated 04/28/24 @ 15:16 [...] Father , at 40 YOA of an MA Heart disease Other Hypertension Surgical History (Updated [...] is subluxed dueto muscle atrophy. 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 R arm falls immediately to the bed when I lift it up. He has some tone in the R triceps, biceps and brachioradialis muscle. Has shoulder shrug BL which is about even. NO tremors.R energy conservation technician is weak and heb is R hand dominant. He can lift both legs off the bed and hold for 5 sec. Good plantar flexion and dorsiflexion with both feet. PERRLA. No faciall droop. No nystagmus. Tracks well and did not have vertigo Psych mental status grossly normal, thought process normal and cooperative Psych Narrative: depressed affect. Not suicidal......his jain (Baptism) feels this is a sinand you will [...] Clarity Clear, Urine pH 5.0, Ur Specific [place] 1.020, Urine Protein 15 H, Urine Glucose [...] completing documentation. Charges/Coding Visit Charges Inpatient E&M: 32906 Init Hosp L3 04/28/24 1519 Cosigner Signature [...] MD; Dr. Corazon Wright DO ~* Signed [facility]03-21-2025 [facility]03-20-2025 Progress note Author Awa Chadwick [facility] Note Date/Time April 27, 2024 7:4 5pm [facility] Medical Records Department [address] [place] [address] Progress Note - Orthopedic 04/27/241938 MR#: [id number] Acct: [id number] Name: YAS ROSA Rep #:[id number] : 1940 83 From: Awa CONTEH PCP: Dr. Kwabena Menjivar MD Status :ADM IN Location: [place] [address] Subjective Subjective Seen with Dr. Diego. Patient [...] reapplied. 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, grade 0 finger abduction, grade 4 wrist [...] Cosigner Signature (if applicable): CC: ~ Signed [facility] Work Phone: 1(610) 416-435803-20-2025 Progress note [facility] Medical Records Department [address] [place] [address] Progress Note - Orthopedic 04/27/241938 MR#: [id number] Acct: [id number] Name: YAS ROSA Rep #:[id number] : 1940 83 From: Awa CONTEH PCP: Dr. Kwabena Menjivar MD Status :ADM IN Location: [place] [address] Subjective Subjective Seen with Dr. Diego. Patient [...] reapplied. 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, grade 0 finger abduction, grade 4 wrist [...] Cosigner Signature (if applicable): CC: ~ Signed [facility]03-20-2025 Evaluation note* Diagnosis Onset Date Resolution Status Admit Date BPPV (benign paroxysmal positional vertigo) acute April [...] acute April 27 3:15pm Urinary incontinence acute Za 2024 3:15pm Urine retention acute April 3:15pm Anxiety and depression chronic [facility] 2024 3:15pm Bilateral arm weakness chronic [facility] 2024 3:15pm Chronic left shoulder pain chronic April 27, 2024 3:15pm GERD with esophagitis chronic [facility] 2024 3:15pm History of IBS chronic [...] Cervical myelopathy inactive June 01, 2024 3:28pm Status post cervical spinal fusion acute August 03, 2024 3:03pm Cervical myelopathy inactive August 03, 2024 3:03pm Generalized weakness acute August 06, 2024 1:22pm Orthostatic lightheadedness resolved August 06, 2024 1:22pm [facility] Work Phone: 1(846) [phone] Discharge summary [facility] Medical Records Department [address] [place] [address] Discharge Summary 04/27/24 1353 MR#: [id number] Acct: [id number] Name: YAS ROSA Rep #:[id number] : 1940 83 From: Harish Schneider PCP: Dr. Kwabena Menjivar MD Status :ADM IN Location: [facility] [id number]- 1 Providers Date of Admission: 04/20/24 Date [...] with left arm weakness. EMERGENT Consult: No Notified: Yes Date Notified: 04/20/24 Time Notified: [...] PRN Pain 1-10 Or Fever >100.7 #0 tabs25 benzocaine 15 mg-menthol 3.6 mg lozenges (Sore Throat (benzocaine with menthol))1 juliet mucous membrane Q2H PRN PRN SORE THROAT #0 ea 04/27/24 carboxymethylcellulose sodium 0.5 % eye drops (Refresh Tears) 2 drp EACH EYE Q1HPRN DRY EYES #0 mL 25 diazepam 2 mg tablet 2 mg PO 4X/DAY PRN PRN Vertigo #0 tabs 25 food supplemt, lactose-reduced 0.08 gram-1.5 kcal/mL oral liquid (Ensure Plus High Protein) 120 ml PO TIDCM #0 mL 04/27/24 meclizine 25 mg tablet 12.5 mg (1/2 x 25 mg) PO TID PRN dizziness #0 tabs 03/20/25 meloxicam 15 mg tablet 15 mg PO [...] (Auto) 78.8 H, Lymph % (Auto) 14.3L, Nobles % (Auto) 5.8, Eos % (Auto) 0.0, [...] fluoroscopic images were also obtained. Reading Location: [address] Cervical Spine X-Ray 04/26/24 11:05 IMPRESSION: Intraoperative fluoroscopy performed for anterior cervical discectomy and fusionsurgery. 10 fluoroscopic images were also obtained. Reading Location: [address] Cervical Spine X-Ray 04/27/24 07:00 IMPRESSION: Osteopenia. Interval placement of a metallic fixation plate at the anterior margin of C3-C6. Interval placement of interbody spacer devices at C3-4, C4-5, and C5-6. No acute bony abnormality of the cervical spine. Similar moderate/severe degenerative disc disease at C6-7. [facility] Inst[facility] Discharge Diet: Light diet - advance [...] Self Care Charges/Coding Visit Charges Inpatient E&M: 73159 Disch Hosp >30min 04/27/24 1357 Cosigner Signature (if applicable): CC: Dr. Kwabena Menjivar MD; Dr. Harish Baxter MD~ Signed [facility]03-20-2025 Discharge summary [facility] Medical Records Department [address] [place] [address] Instructions for Home/Discharge Instructions 04/27/24 1045 MR#: [id number] Acct: [id number] Name: YAS ROSA Rep #:[id number] : 1940 83 From: Harish Schneider PCP: [...] Alfred DO; Dr.Robert Gretchen MD ~ Signed [facility]03[facility]20[facility] Discharge summary Author Harish Baxter [facility] Note Date/Time April 27, 2024 1:5 3pm [facility] Medical Records Department [address] [place] [address] Instructions for Home/Discharge Instructions 04/27/24 1045 MR#: [id number] Acct: [id number] Name: YAS ROSA Rep #:[id number] : 1940 83 From: Harish Schneider PCP: [...] can be placed): Home, Self Care 04/27/24 2073<Electronically signed by Harish Baxter MD>Harish Baxter MD CC: Dr. Ciro Diego MD; Dr. Kwabena Menjivar MD; Dr. Keanu Alfred DO; Dr.Robert Gretchen MD ~ Signed [facility] Work Phone: 1(629) 757-289603-20-2025 Radiology Diagnostic study note [facility] Imaging Services [address] [place], [place] [address] Cerv Spine 2 or 3 Views MR#: [id number] Acct: [id number] Name: YAS ROSA Rep #: [id number] : 1940 M 83 From: Oren Narvaez DO PCP: Dr. Kwabena Menjivar MD Status: ADM IN Study:Cerv Spine 2 or 3 Views Date of Exam: 04/27/24 Exam# [id number] Ordering Dr: Cheikh Chadwick PROCEDURE: Cervical spine [...] YADY Hyman; Dr. Kwabena Menjivar MD ~ Rehabilitation Director: Signed [facility]03-19-2025 Progress note Author Harish Baxter [facility] Note Date/Time April 26, 2024 4:3 5pm [facility] Medical Records Department [address] [place] [address] Progress Note - Hospitalist 04/26/24 1525 MR#: [id number] Acct: [id number] Name: YAS ROSA Brigido Rep #:[id number] : 1940 83 From: Harish Schneider PCP: Dr. Kwabena Menjivar MD Status :ADM IN Location: [place] [address] Reason for Visit Reason for Visit: Diagnoses [...] % (Auto) 62.4, Lymph % (Auto) 26.4, Nobles% (Auto) 8.2, Eos % (Auto) 2.2, Baso [...] fluoroscopic images were also obtained. Reading Location: [address] Cervical Spine X-Ray 04/26/24 11:05 IMPRESSION: Intraoperative fluoroscopy performed for anterior cervical discectomy and fusionsurgery. 10 fluoroscopic images were also obtained. Reading Location: [address] Physical Exam Narrative Seen and examined [...] dressing soaked with serosanguineous fluid, expected from Reinaldo drain. Subcutaneous bruise/ecchymosis over left orbital [...] with SCDs Charges/Coding Visit Charges Inpatient E&M: 48874 Subs Hosp L2 04/26/24 1636 <Electronically signed by Harish Baxter MD> Cosigner Signature (if applicable): CC: ~ Signed [facility] Work Phone: 1(826) 837-124803-19-2025 Consult note Author Krish Guevara [facility] Note Date/Time April 26, 2024 3:5 1pm [facility] Medical Records Department [address] [place] [address] Anesthesia Postop Eval II 04/26/24 1549 MR#: [id number] Acct: [id number] Name: YAS ROSA Rep #:[id number] : 1940 83 From: Krish Guevara MD PCP: Dr. Kwabena Menjivar MD Status :ADM IN Y Race: C Location: [place] [address]1 Anesthesia Postop Eval I Sum Postop Eval Completion status Anesthesia document: Postop Eval 1 completed: Yes Anesthesia Postop Eval I Summary Anesthesia Postop Eval I Summary: Anesthesia Postop Eval I: Assessment Summary Airway patent Yes 04/26/24 14:22 [email or web address] Spontaneous unlabored Yes 04/26/24 14:22 [email or web address] [email or web address] respirations Mental status nausea No 04/26/24 14:22 [email or web address] [email or web address] Vomiting No 04/26/24 14:22 [email or web address] [email or web address] Anesthesia Postop Eval I: Fluid Summary Crystalloid volume administer 1,400 04/26/24 14:22 CARBOY [email or web address] (ml) Colloids volume administered ( ml) Blood Product volume administered (ml) Total IV fluid infused 1,400 04/26/24 14:22 [email or web address] Anesthesia Postop Eval I: Summary Notes Anesthesia Complication No 04/26/24 14:22 [email or web address] Anesthesia Complication Comment: Post-operative progress note Anesthesia: Postop Eval II Evaluation Mental status: Awake and Calm Pain Level: 2 nausea: No Vomiting: No Complications Anesthesia Complication: No 04/26/24 1551 <Electronically signed by Krish parada MD> Date _ Krish Guevara MD Cosigner Signature: Date CC: ~ Signed [facility] Work Phone: 1(495) 927-877103-19-2025 Progress note [facility] Medical Records Department [address] [place] [address] Progress Note - Hospitalist 04/26/24 1525 MR#: [id number] Acct: [id number] Name: YAS ROSA Rep #:[id number] : 1940 83 From: Harish Schneider PCP: Dr. Kwabena Menjivar MD Status :ADM IN Location: [place] [address] Reason for Visit Reason for Visit: Diagnoses [...] % (Auto) 62.4, Lymph % (Auto) 26.4, Nobles% (Auto) 8.2, Eos % (Auto) 2.2, Baso [...] fluoroscopic images were also obtained. Reading Location: [address] Cervical Spine X-Ray 04/26/24 11:05 IMPRESSION: Intraoperative fluoroscopy performed for anterior cervical discectomy and fusionsurgery. 10 fluoroscopic images were also obtained. Reading Location: [address] Physical Exam Narrative Seen and examined [...] dressing soaked with serosanguineous fluid, expected from Houghton drain. Subcutaneous bruise/ecchymosis over left orbital and [...] with SCDs Charges/Coding Visit Charges Inpatient E&M: 28186 Subs Hosp L2 04/26/24 1635 Cosigner Signature (if applicable): CC: ~ Signed [facility]03-19-2025 Consult note Author Tl Daniel [facility] Note Date/Time April 26, 2024 2:2 2pm [facility] Medical Records Department [address] [place] [address] Anesthesia Postop Eval I 04/26/24 142 MR#: [id number] Acct: [id number] Name: YAS ROSA Rep #:[id number] : 1940 83 From: Tl JHAVERI PCP: Dr. Kwabena Menjivar MD Status :ADM IN Y Race: C Location: [address] Anesthesia: Postop Eval I Current Vital [...] CRNA Cosigner Signature: Date CC: ~ Signed [facility] Work Phone: 1(485) 791-996703-19-2025 Consult note [facility] Medical Records Department [address] [place] [address] Anesthesia Postop Eval II 04/26/24 1549 MR#: [id number] Acct: [id number] Name: YAS ROSA Rep #:[id number] : 1940 83 From: Krish Guevara MD PCP: Dr. Kwabena Menjivar MD Status :ADM IN Y Race: C Location: [place] [address] 6-1 Anesthesia Postop Eval I Sum Postop Eval Completion status Anesthesia document: Postop Eval 1 completed: Yes Anesthesia Postop Eval I Summary Anesthesia Postop Eval I Summary: Anesthesia Postop Eval I: Assessment Summary Airway patent Yes 04/26/24 14:22 [email or web address] [email or web address] Spontaneous unlabored Yes 04/26/24 14:22 CARBOY [email or web address] respirations Mental status nausea No 04/26/24 14:22 CARBOY [email or web address].[email or web address] Vomiting No 04/26/24 14:22 CARBOY [email or web address] Anesthesia Postop Eval I: Fluid Summary Crystalloid volume administer 1,400 04/26/24 14:22 CARBOY [email or web address].TNES (ml) Colloids volume administered ( ml) Blood Product volume administered (ml) Total IV fluid infused 1,400 04/26/24 14:22 CARBOY [email or web address] Anesthesia Postop Eval I: Summary Notes Anesthesia Complication No 04/26/24 14:22 [email or web address] [email or web address] Anesthesia Complication Comment: Post-operative progress note Anesthesia: Postop Eval II Evaluation Mental status: Awake and Calm Pain Level: 2 nausea: No Vomiting: No Complications Anesthesia Complication: No 04/26/24 1551 tal CABELLO> Date _ Krish Guevara MD Cosigner Signature: Date CC: ~ Signed [facility]03-19-2025 Procedure note [facility] Medical Records Department [address] [place] [address] Operative Report 04/26/24 1425 MR#: [id number] Acct: [id number] Name: YAS ROSA Rep #:[id number] : 1940 83 From: Ciro Diego MD PCP: Dr. 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, stenosis, cord compression withmyelopathy, cord signal changes Post-Operative Diagnosis: Same Surgery/Procedure Performed: C3-6 ACDF birdcage assembler: Yes Java Mobile Developer: Awa Chadwick Tasks completed by financial legal assistant: Closing, Removing tissue, Implanting device, Hemostasis: [...] all DRAINS/GRAFTS/IMPLANTS that apply: Drains Drain details: Houghton drain , Graft Graft details: Structural allograft cortical cancellous strut, DBX and Implanted device Implanted device details: Medtronic [place] Elite plate instrumentation Estimated Blood Loss: 50 cc Specimen collected: No Description of surgery: Preoperative diagnosis: 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 Anesthesia: Gen. endotracheal Estimated blood loss: 50 mL Complications: None Instrumentation used: Medtronic [place] Elite plate, LASR corticocancellous block Indications: The [...] Disc fragments were removed with the pituitary. [place] pins were placed in C4 and C5 [...] good pullout strength. A 60 mm Medtronic [place] Elite plate wascontoured for larger lordosis due [...] was again given. Hemostasis was achieved. A Houghton drain was then inserted. Closure was done [...] entire surgery and performed the surgery myself. Salad Maker Awa Chadwick PA-C. My physician financial legal assistant was a vital part of this [...] Keanu Alfred DO; Dr.Robert Gretchen MD~ Signed [facility]03-19-2025 Consult note [facility] Medical Records Department [address] [place] [address] Anesthesia Postop Eval I 04/26/24 1422 MR#: [id number] Acct: [id number] Name: YAS ROSA Brigido Rep #:[id number] : 1940 83 From: Tl LOPEZ NA PCP: Dr. Kwabena Menjivar MD Status :ADM IN Y Race: C Location: [place] [address] 07-09 Anesthesia: Postop Eval I Current Vital Signs Temperature: 97.7 F Pulse Rate: 66 Blood Pressure: 107/55 Respiratory Rate: 16 Pulse Ox: 94 Assessment Airway patent: Yes Spontaneous unlabored respirations: Yes nausea: No Vomiting: No Anesthesia Complication: No Fluid Hydration Crystalloid volume administer (ml): 1,400 Total IV fluid infused: 1,400 Progress Note Anesthesia document: Postop Eval 1 completed: Yes 04/26/24 1422 CARBOY FILLER> Date _ Tl Daniel CARBOY FILLER Cosigner Signature: Date CC: ~ Signed [facility]03-19-2025 Radiology Diagnostic study note [facility] Imaging Services [address] [place], [place] [address] Cerv Spine 2 or 3 Views MR#: [id number] Acct: [id number] Name: YAS ROSA Rep #: [id number] : 1940 M 83 From: Fito Maldonado MD PCP: Dr. Kwabena Mnejivar MD Status: ADM IN Study:Cerv Spine 2 or 3 Views Date of Exam: 04/26/24 Exam# [id number] Ordering Dr: Kristine Diego MD PROCEDURE: CERV [...] fluoroscopic images were also obtained. Reading Location: [address] CC: Dr. Ciro Diego MD; Dr. Kwabena Menjivar MD ~ Rehabilitation Director: Signed [facility]03-19-2025 Radiology Diagnostic study note [facility] Imaging Services [address] [place], [place] [address] O.R. Fluoro for C-Arm MR#: [id number] Acct: [id number] Name: YAS ROSA Rep #: [id number] : 1940 M 83 From: Fito Maldonado MD PCP: Dr. Kwabena Menjivar MD Status: ADM IN Study:O.R. Fluoro for C-Arm Date of Exam: 04/26/24 Exam# [id number] Ordering Dr: Kristine Diego MD PROCEDURE: CERV [...] fluoroscopic images were also obtained. Reading Location: [address] CC: Dr. Ciro Diego MD; Dr. Kwabena Menjivar MD ~ Rehabilitation Director: Signed [facility]03-19-2025 Consult note Author Tl Danielsbitt [facility] Note Date/Time April 26, 2024 10: 39am [facility] Medical Records Department [address] [place] [address] Pre-Anesthesia Evaluation 04/26/24 1033 MR#: [id number] Acct: [id number] Name: YAS ROSA Rep #:[id number] : 1940 83 From: Tl JHAVERI PCP: Dr. Kwabena Menjivar MD Status :ADM IN Y Race: C Location: [place] [address] ASA Classification* ASA Classification ASA Classification: 3 [...] ACDF C3-6 Anesthesia History Anesthesia History - job estimator: Anesthesia History - job estimator Hx Hospitalization No 03/08/24 08:44 Any Problems [...] take am of surgery PONV PONV - job estimator: PONV - job estimator Female HX of Motion Sickness HX of N/V After Surgery Non-Smoker Duration of Surgery greater than 60 minutes Number of Risk Factors PONV Score Height & Weight Height & Weight: Anesthesia: Height & Weight Height 5 ft 8 in 04/26/24 08:40 Weight: 75.6 kg 04/26/24 08:40 Body Mass Index (BMI) 25.3 04/26/24 08:40 Respiratory Assessment Respiratory Assessment - job estimator: Respiratory Tract Infection Hx - job estimator Hx Respiratory Tract Infection No 04/25/24 21:52 STOP Sleep Apnea STOP Sleep Apnea - job estimator: STOP Sleep Apnea - job estimator Hx Hypertension No 04/20/24 12:54 Hx Sleep [...] Tobacco Use History Tobacco Use History - job estimator: Tobacco Use History - job estimator Tobacco Use Smoking Status Former smoker 04/19/24 15:04 Hx Tobacco Use No 04/19/24 15:04 Years Smoking Packs Smoked per Day Smoking Cessation Date was No - quit smoking greater 04/19/24 15:04 within the last 15 years than 15 years ago Hx Smoking Cessation Date 09/08/1968 04/19/24 15:04 Hx Smoking Cessation Counseling Hematologic Medial History Hematologic Hx - job estimator: 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 Hx of Blood Transfusion No 04/19/24 15:04 [...] confused, unrespo /Reproduction History /Reproductive History - job estimator: /Reproductive Hx- job estimator Hx Now No 04/25/24 21:52 Gestational Age [...] 120 Ml Liquid PO Not Given TIDCM [facility] Ondansetron HCl 4 mg 04/19/24 15:02 04/21/24 [...] Sodium 1 Tablet PO Not Given BID [facility] Sodium Chloride 10 - 40 ml 04/19/24 [...] Tl Daniel CRNA> Date _ Tl Daniel CARBOY FILLER Cosigner Signature: Date CC: ~ Signed [facility] Work Phone: 1(958) 309-486503-19-2025 Consult note Author Tl Danielsbitt [facility] Note Date/Time April 26, 2024 9:4 9am [facility] Medical Records Department [address] [place] [address] Anesthesia Postop Eval I 04/26/2449 MR#: [id number] Acct: [id number] Name: YAS ROSA Rep #:[id number] : 1940 83 From: Tl JHAVERI PCP: Dr. Kwabena Menjivar MD Status :ADM IN Y Race: C Location: [place] [address] Anesthesia: Postop Eval I Current Vital Signs [...] Yes 04/26/24 0949 <Electronically signed by Tl Daniel CRNA> Date _ Tl Daniel CARBOY FILLER Cosigner Signature: Date CC: ~ Signed [facility] Work Phone: 1(648) 611-730503-19-2025 Progress note Author Ciro Diego [facility] Note Date/Time April 26, 2024 9:4 6am [facility] Medical Records Department [address] [place] [address] Progress Note - Orthopedic 04/26/24 0945 MR#: [id number] Acct: [id number] Name: YAS ROSA Rep #:[id number] : 1940 83 From: Ciro Diego MD PCP: Dr. Kwabena Menjivar MD Status :ADM IN Location: [place] [address] Subjective Subjective Saw patient in preop. Reviewed [...] % (Auto) 62.4, Lymph % (Auto) 26.4, Nobles% (Auto) 8.2, Eos % (Auto) 2.2, Baso % (Auto) 0.1, Absolute Neuts (auto) 5.4, Absolute Lymphs (auto) 2.30, Nucleated RBC % 0, Sodium 136, Potassium 4.5, Chloride 107, Carbon Dioxide 22.8, Anion Gap 6, BUN 20 H, Creatinine 0.83, EstimCreat Clear Calc 66.39, Est GFR (MDRD) Non-Af 87, BUN/Creatinine Ratio 23.4 H, Glucose 91, Calcium 8.2 Charges/Coding Visit Charges Inpatient E&M: 82193 Subs Hosp L1 04/26/24 0946 <Electronically signed by Ciro Diego MD> Cosigner Signature (if applicable): CC: ~ Signed [facility] Work Phone: 1(724) 593-294603-19-2025 Consult note [facility] Medical Records Department [address] [place] [address] Pre-Anesthesia Evaluation 04/26/24 1033 MR#: [id number] Acct: [id number] Name: YAS ROSA Rep #:[id number] : 1940 83 From: Tl JHAVERI PCP: Dr. Kwabena Menjivar MD Status :ADM IN Y Race: C Location: [place] [address] ASA Classification* ASA Classification ASA Classification: 3 [...] ACDF C3-6 Anesthesia History Anesthesia History - job estimator: Anesthesia History - job estimator Hx Hospitalization No 03/08/24 08:44 Any Problems [...] take am of surgery PONV PONV - job estimator: PONV - job estimator Female HX of Motion Sickness HX of N/V After Surgery Non-Smoker Duration of Surgery greater than 60 minutes Number of Risk Factors PONV Score Height & Weight Height & Weight: Anesthesia: Height & Weight Height 5 ft 8 in 04/26/24 08:40 Weight: 75.6 kg 04/26/24 08:40 Body Mass Index (BMI) 25.3 04/26/24 08:40 Respiratory Assessment Respiratory Assessment - job estimator: Respiratory Tract Infection Hx - job estimator Hx Respiratory Tract Infection No 04/25/24 21:52 STOP Sleep Apnea STOP Sleep Apnea - job estimator: STOP Sleep Apnea - job estimator Hx Hypertension No 04/20/24 12:54 Hx Sleep [...] Tobacco Use History Tobacco Use History - job estimator: Tobacco Use History - job estimator Tobacco Use Smoking Status Former smoker 04/19/24 15:04 Hx Tobacco Use No 04/19/24 15:04 Years Smoking Packs Smoked per Day Smoking Cessation Date was No - quit smoking greater 04/19/24 15:04 within the last 15 years than 15 years ago Hx Smoking Cessation Date 09/08/1968 04/19/24 15:04 Hx Smoking Cessation Counseling Hematologic Medial History Hematologic Hx - job estimator: 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 04/26/24 1039 CARBOY FILLER> Date _ Tl Malcom CARBOY FILLER Cosigner Signature: Date CC: ~ Signed [facility]03-19-2025 Consult note [facility] Medical Records Department [address] [place] [address] Anesthesia Postop Eval I 04/26/2449 MR#: [id number] Acct: [id number] Name: MOEYAS Brigido Rep #:[id number] : 1940 83 From: Tl LOPEZ NA PCP: Dr. Kwabena Menjivar MD Status :ADM IN Y Race: C Location: [place] [address] Anesthesia: Postop Eval I Current Vital Signs Temperature: 97.4 F Pulse Rate: 67 Blood Pressure: 124/74 Respiratory Rate: 16 Pulse Ox: 98 Assessment Airway patent: Yes Spontaneous unlabored respirations: Yes nausea: No Vomiting: No Anesthesia Complication: No Fluid Hydration Crystalloid volume administer (ml): 1,500 Total IV fluid infused: 1,500 Progress Note Anesthesia document: Postop Eval 1 completed: Yes 04/26/24 0949 CARBOY FILLER> Date _ Tl Malcom CARBOY FILLER Cosigner Signature: Date CC: ~ Signed [facility]03-19-2025 Progress note [facility] Medical Records Department [address] [place] [address] Progress Note - Orthopedic 04/26/24 0945 MR#: [id number] Acct: [id number] Name: YAS ROSA Rep #:[id number] : 1940 83 From: Ciro Diego MD PCP: Dr. Kwabena Menjivar MD Status :ADM IN Location: [place] [address] Subjective Subjective Saw patient in preop. Reviewed [...] % (Auto) 62.4, Lymph % (Auto) 26.4, Nobles% (Auto) 8.2, Eos % (Auto) 2.2, Baso % (Auto) 0.1, Absolute Neuts (auto) 5.4, Absolute Lymphs (auto) 2.30, Nucleated RBC % 0, Sodium 136, Potassium 4.5, Chloride 107, Carbon Dioxide 22.8, Anion Gap 6, BUN 20 H, Creatinine 0.83, EstimCreat Clear Calc 66.39, Est GFR (MDRD) Non-Af 87, BUN/Creatinine Ratio 23.4 H, Glucose 91, Calcium 8.2 Charges/Coding Visit Charges Inpatient E&M: 41699 Subs Hosp L1 04/26/24 0946 Cosigner Signature (if applicable): CC: ~ Signed [facility]03-18-2025 Progress note Author Ana Rosa Howard [facility] Note Date/Time April 25, 2024 9:1 7pm [facility] Medical Records Department [address] [place] [address] Progress Note - Surgery 04/25/24 1432 MR#: [id number] Acct: [id number] Name: YAS ROSA Brigido Rep #:[id number] : 1940 83 From: Ana Rosa mccall YIELD ENGINEER YIELD ENGINEER-C PCP: Dr. Kwabena Menjivar MD Status :ADM IN Location: [place] [address] <Statement entered by Yas Godinez MD - [...] % (Auto) 60.4, Lymph % (Auto) 30.0, Nobles% (Auto) 7.5, Eos % (Auto) 1.3, Baso [...] 1453 <Electronically signed by Ana Rosa Howard YIELD ENGINEER YIELD ENGINEER-C> Cosigner Signature (if applicable): 04/25/242116 <Electronically signed by Yas Godinez MD> CC: ~ Signed [facility] Work Phone: 1(669) 545-193603-18-2025 Progress note [facility] Medical Records Department [address] [place] [address] Progress Note - Surgery 04/25/24 1432 MR#: [id number] Acct: [id number] Name: YAS ROSA Rep #:[id number] : 1940 83 From: Ana Rosa mccall YIELD ENGINEER YIELD ENGINEER-C PCP: Dr. Kwabena Menjivar MD Status :ADM IN Location: [place] [address] I have personally performed a face to [...] % (Auto) 60.4, Lymph % (Auto) 30.0, Nobles% (Auto) 7.5, Eos % (Auto) 1.3, Baso [...] plan of care with Dr. Godinez. 04/25/24 0133 Cosigner Signature (if applicable): 04/25/247 CC: ~ Signed [facility]03-18-2025 Progress note Author Harish Baxter [facility] Note Date/Time April 25, 2024 2:4 7pm [facility] Medical Records Department [address] [place] [address] Progress Note - Hospitalist 04/25/24 1441 MR#: [id number] Acct: [id number] Name: YAS ROSA Rep #:[id number] : 1940 83 From: Harish Schneider PCP: Dr. Kwabena Menjivar MD Status :ADM IN Location: [facility] [id number] 1 Reason for Visit Reason for Visit: [...] % (Auto) 60.4, Lymph % (Auto) 30.0, Nobles% (Auto) 7.5, Eos % (Auto) 1.3, Baso [...] with SCDs Charges/Coding Visit Charges Inpatient E&M: 20296 Subs Hosp L2 04/25/24 4253 <Electronically signed by Harish Baxter MD> Cosigner Signature (if applicable): CC: ~ Signed [facility] Work Phone: 1(117) 198-215703-18-2025 Progress note [facility] Medical Records Department [address] [place] [address] Progress Note - Hospitalist 04/25/24 1441 MR#: [id number] Acct: [id number] Name: YAS ROSA Rep #:[id number] : 1940 83 From: Harish Schneider PCP: Dr. Kwabena Menjivar MD Status :ADM IN Location: [place] [address] Reason for Visit Reason for Visit: Diagnoses [...] % (Auto) 60.4, Lymph % (Auto) 30.0, Nobles% (Auto) 7.5, Eos % (Auto) 1.3, Baso [...] nor sleeping on his left side. Dr. Gdoinez has no concerns about the patient going [...] with SCDs Charges/Coding Visit Charges Inpatient E&M: 46344 Subs Hosp L2 04/25/24 2824 Cosigner Signature (if applicable): CC: ~ Signed [facility]03-18-2025 Progress note Author Ciro Diego [facility] Note Date/Time April 25, 2024 12: 04pm [facility] Medical Records Department [address] [place] [address] Progress Note - Orthopedic 04/25/24 1200 MR#: [id number] Acct: [id number] Name: YAS ORSA Rep #:[id number] : 1940 83 From: Ciro Diego MD PCP: Dr. 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 Charges/Coding Visit Charges Inpatient E&M: 53874 Subs Hosp L3 04/25/24 1204 <Electronically signed by Ciro Diego MD> Cosigner Signature (if applicable): CC: ~ Signed [facility] Work Phone: 1(581) 669-377803-18-2025 Progress note [facility] Medical Records Department [address] [place] [address] Progress Note - Orthopedic 04/25/24 1200 MR#: [id number] Acct: [id number] Name: YAS ROSA Rep #:[id number] : 1940 83 From: Ciro Diego MD PCP: Dr. 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 Charges/Coding Visit Charges Inpatient E&M: 92111 Subs Hosp L3 04/25/24 1204 Cosigner Signature (if applicable): CC: ~ Signed [facility]03-17-2025 Progress note Author Harish Baxter [facility] Note Date/Time April 24, 2024 2:1 8pm [facility] Medical Records Department [address] [place] [address] Progress Note - Hospitalist 04/24/24803 MR#: [id number] Acct: [id number] Name: YAS ROSA Rep #:[id number] : 1940 83 From: Harish Schneider PCP: Dr. Kwabena Menjivar MD Status :ADM IN Location: [place] [address] Reason for Visit Reason for Visit: Diagnoses [...] % (Auto) 60.3, Lymph % (Auto) 30.5, Nobles% (Auto) 7.9, Eos % (Auto) 0.7, Baso [...] with SCDs Charges/Coding Visit Charges Inpatient E&M: 04453 Subs Hosp L2 04/24/24 1418 <Electronically signed by Harish Baxter MD> Cosigner Signature (if applicable): CC: ~ Signed [facility] Work Phone: 1(635) 342-683503-17-2025 Progress note [facility] Medical Records Department [address] [place] [address] Progress Note - Hospitalist 04/24/24 0804 MR#: [id number] Acct: [id number] Name: YAS ROSA Rep #:[id number] : 1940 83 From: Harish Schneider PCP: Dr. Kwabena Menjivar MD Status :ADM IN Location: [place] [address] Reason for Visit Reason for Visit: Diagnoses [...] % (Auto) 60.3, Lymph % (Auto) 30.5, Nobles% (Auto) 7.9, Eos % (Auto) 0.7, Baso [...] with SCDs Charges/Coding Visit Charges Inpatient E&M: 57911 Subs Hosp L2 04/24/24 1418 Cosigner Signature (if applicable): CC: ~ Signed [facility]03-16-2025 Progress note Author Keanu Alfred [facility] Note Date/Time April 23, 2024 12: 42pm [facility] Medical Records Department [address] [place] [address] Progress Note - Hospitalist 04/23/24 0834 MR#: [id number] Acct: [id number] Name: YAS ROSA Rep #:[id number] : 1940 83 From: Keanu Alfred DO PCP: Dr. Kwabena Menjivar MD Status :ADM IN Location: [place] [id number]- 1 Reason for Visit Reason for Visit: [...] for discharge. Charges/Coding Visit Charges Inpatient E&M: 13358 Subs Hosp L2 04/23/24 1382 <Electronically signed by Keanu Alfred DO> Cosigner Signature (if applicable): CC: ~ Signed [facility] Work Phone: 1(628) 797-732203-16-2025 Progress note [facility] Medical Records Department [address] [place] [address] Progress Note - Hospitalist 04/23/24 0834 MR#: [id number] Acct: [id number] Name: YAS ROSA Rep #:[id number] : 1940 83 From: Keanu Alfred DO PCP: Dr. Kwabena Menjivar MD Status :ADM IN Location: [place] [address] Reason for Visit Reason for Visit: Diagnoses [...] for discharge. Charges/Coding Visit Charges Inpatient E&M: 44710 Subs Hosp L2 04/23/24 1242 Cosigner Signature (if applicable): CC: ~ Signed [facility]03-15-2025 Progress note Author Keanu Alfred [facility] Note Date/Time April 22, 2024 1:[address] [place] [address] Medical Records Department [address] [place] [address] Progress Note - Hospitalist 04/22/24 0851 MR#: [id number] Acct: [id number] Name: YAS ROSA Rep #:[id number] : 1940 83 From: Keanu Alfred DO PCP: Dr. Kwabnea Menjivar MD Status :ADM IN Location: [place] [address] Reason for Visit Reason for Visit: Diagnoses [...] for discharge. Charges/Coding Visit Charges Inpatient E&M: 07337 Subs Hosp L2 04/22/24 1321 <Electronically signed by Keanu lAfred DO> Cosigner Signature (if applicable): CC: ~ Signed [facility] Work Phone: 1(975) [phone] Progress note [facility] Medical Records Department [address] [place] [address] Progress Note - Hospitalist 04/22/24 0851 MR#: [id number] Acct: [id number] Name: YAS ROSA Rep #:[id number] : 1940 83 From: Keanu Alfred DO PCP: Dr. Kwabena Menjivar MD Status :ADM IN Location: [facility] [id number]- [id number] Reason for Visit Reason for Visit: [...] for discharge. Charges/Coding Visit Charges Inpatient E&M: 10323 Subs Hosp L2 04/22/24 1321 Cosigner Signature (if applicable): CC: ~ Signed [facility]03-14-2025 Consult note Author Ciro Diego [facility] Note Date/Time April 21, 2024 4:3 2pm [facility] Medical Records Department [address] [facility] [place] [address] Consultation - Orthopedics 04/21/24 1621 MR#: [id number] Acct: [id number] Name: YAS ROSA Rep #:[id number] : 1940 83 From: Ciro Diego MD PCP: Dr. Kwabena Menjivar MD Status :ADM IN Location: [facility] [id number]- 1 HPI Consult Data Date of Consult: [...] has had tremendous difficulty being independently ambulatory. 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 Charges/Coding Visit Charges Inpatient E&M: 13402 Init Hosp L3 04/21/24 1632 <Electronically signed by Ciro Diego MD> Cosigner Signature (if applicable): CC: Dr. Kwabena Menjivar MD; Dr. Keanu Alfred DO~ Signed [facility] Work Phone: 1(403) 623-317903-14-2025 Consult note [facility] Medical Records Department [address] [place] [address] Consultation - Orthopedics 04/21/24 1621 MR#: [id number] Acct: [id number] Name: YAS ROSA Rep #:[id number] : 1940 83 From: Ciro Diego MD PCP: Dr. Kwabena Menjivar MD Status :[facility] H[facility] Consult Data Date of Consult: 04/21/24 HPI Narrative HPI Narrative: YAS ROSA, is a 83 M who presents with left arm weakness and facial injuries from a fall. I was consulted for MRI findings of severe spinal cord compression and cervical spine. I saw the patient in U 126. I spoke with the patient and [...] has had tremendous difficulty being independently ambulatory. 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 Charges/Coding Visit Charges Inpatient E&M: 36652 Init Hosp L3 04/21/24 1632 Cosigner Signature (if applicable): CC: Dr. Kwabena Menjivar MD; Dr. Keanu Alfred DO~ Signed [facility]03-14-2025 Progress note Author Keanu Alfred [facility] Note Date/Time April 21, 2024 1:5 7pm [facility] Medical Records Department [address] [place] [address] Progress Note - Hospitalist 04/21/24 0830 MR#: [id number] Acct: [id number] Name: YAS ROSA Rep #:[id number] : 1940 83 From: Keanu Alfred DO PCP: Dr. Kwabena Menjivar MD Status :ADM IN Location: [place] [address]- 1 Reason for Visit Reason for Visit: [...] with SCDs Charges/Coding Visit Charges Inpatient E&M: 58549 Subs Hosp L2 04/21/24 1357 <Electronically signed by Keanu Alfred DO> Cosigner Signature (if applicable): CC: ~ Signed [facility] Work Phone: 1(564) 708-326203-14-2025 Progress note [facility] Medical Records Department [address] [place] [address] Progress Note - Hospitalist 04/21/24 0830 MR#: [id number] Acct: [id number] Name: YAS ROSA Rep #:[id number] : 1940 83 From: Keanu Alfred DO PCP: Dr. Kwabena Menjivar MD Status :ADM IN Location: [place] [address] Reason for Visit Reason for Visit: Diagnoses [...] with SCDs Charges/Coding Visit Charges Inpatient E&M: 90529 Subs Hosp L2 04/21/24 3812 Cosigner Signature (if applicable): CC: ~ Signed [facility]03-13-2025 Progress note Author Keanu Alfred [facility] Note Date/Time April 20, 2024 1:5 7pm [facility] Medical Records Department [address] [place] [address] Progress Note - Hospitalist 04/20/24 0752 MR#: [id number] Acct: [id number] Name: MOEYAS Brigido Rep #:[id number] : 1940 83 From: Keanu Alfred DO PCP: Dr. Kwabena Menjivar MD Status :ADM IN Location: [place] [address] Reason for Visit Reason for Visit: Diagnoses [...] 83.7 H, Lymph % (Auto) 9.8 L, Nobles % (Auto) 5.7, Eos % (Auto) 0.0, [...] (Auto) 73.5 H, Lymph % (Auto) 17.6L, Nobles % (Auto) 8.4, Eos % (Auto) 0.1, [...] use of iterative reconstruction technique). Reading Location: [facility] Facial/Sinus 04/19/24 10:42 IMPRESSION: Mildly depressed [...] use of iterative reconstruction technique). Reading Location: [facility] Head/Neck CTA 04/19/24 10:54 IMPRESSION: RIGHT CAROTID: Unremarkable LEFT CAROTID: Minimal plaque at the origin of the left internal carotid artery. VERTEBRALS: Unremarkable INTRACRANIAL: Unremarkable. One or more dose reduction techniques were used (e.g., Automated exposure control, adjustment of the mA and/or kV according to patient size, use of iterative reconstruction technique). Reading Location: [facility] Chest X-Ray 04/19/24 11:20 IMPRESSION: 1. No visible acute cardiopulmonary findings. 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 Consider outpatient CT chest. 2. Additional description as above. Reading Location: [id number] Brain MRI 04/19/24 15:02 IMPRESSION: 1. No acute intracranial abnormality, specifically no evidence of acute ischemia. 2. Mild atrophy and chronic small-vessel ischemic changes. 3. Acute left facial bone fractures better seen and described on recent facial bone CT. Reading Location: [facility] Cervical Spine MRI 04/19/24 15:02 IMPRESSION: 1. 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 2. Acquired mild to severe multilevel foraminal narrowing. See level by level comments above. 3. 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 Reading Location: [facility] Physical Exam Const alert and no [...] with SCDs Charges/Coding Visit Charges Inpatient E&M: 26991 Subs Hosp L2 04/20/24 1257 <Electronically signed [...] doing CPR be futile. Procedures Hospitalists Procedures: 80202 Advncd Care Plan 30 Min 04/20/24 1357<Electronically signed by Keanu Alfred DO> Cosigner Signature (if applicable): cc: ~* Signed [facility] Work Phone: 1(711) 337-257803-13-2025 Evaluation note* Diagnosis Onset Date Resolution Status [...] 12:54pm Hypertension chronic April 20, 2024 12:54pm [facility] Work Phone: 1(707) 364-461503-13-2025 Evaluation note* Diagnosis Onset Date Resolution Status [...] acute April 3:15pm Anxiety and depression chronic [facility] 2024 3:15pm Bilateral arm weakness chronic [facility] 2024 3:15pm Cervical cord myelomalacia chronic April 27, 2024 3:15pm Cervical stenosis of spinal canal chronic April 27, 2024 3:15pm Chronic left shoulder pain chronic April 27, 2024 3:15pm 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 April 27, 2024 3:15pm GERD with esophagitis chronic Mar 2024 3:15pm History of IBS chronic April 3:15pm Postural dizziness with near syncope chronic April 27, 2024 3:15pm Urinary hesitancy chronic April 092024 3:15pm Ventral hernia chronic April 3:15pm BPH (benign prostatic hyperplasia) suspected April 27, 2024 3:15pm Cervical myelopathy inactive April 27, 2024 3:15pm [facility] Work Phone: 1(549) 646-526103-13-2025 Evaluation note* Diagnosis Onset Date Resolution Status [...] 27, 2024 3:15pm Orthostatic hypotension acute M 2024 3:15pm Osteoarthritis acute April 3:15pm Severe dehydration acute April 27, 2024 3:15pm Status post cervical spinal fusion acute April 27, 2024 3:15pm Traumatic brain injury with loss of consciousness acute April 27 3:15pm Urinary incontinence acute [facility] 2024 3:15pm Urine retention acute April 3:15pm Anxiety and depression chronic [facility] 2024 3:15pm Bilateral arm weakness chronic [facility] 2024 3:15pm Chronic left shoulder pain chronic April 27, 2024 3:15pm GERD with esophagitis chronic [facility] 2024 3:15pm History of IBS chronic [...] resolved April 3:15pm Urinary tract infection resolved [facility] 2024 3:15pm Cervical myelopathy inactive April 27, 2024 3:15pm Constipation acute May 25, 2024 12:30pm Fecal incontinence acute May 25, 2024 12:30pm [facility] Work Phone: 1(755) 341-649303-13-2025 Evaluation note* Diagnosis Onset Date Resolution Status [...] acute April 3:15pm Anxiety and depression chronic [facility] 2024 3:15pm Bilateral arm weakness chronic [facility] 2024 3:15pm Chronic left shoulder pain chronic April 27, 2024 3:15pm GERD with esophagitis chronic [facility] 2024 3:15pm History of IBS chronic [...] resolved April 3:15pm Urinary tract infection resolved [facility] 2024 3:15pm Cervical myelopathy inactive April 27, 2024 3:15pm Constipation acute May 25, 2024 12:30pm Fecal incontinence acute May 25, 2024 12:30pm Status post cervical spinal fusion acute June 01, 2024 3:28pm Cervical myelopathy inactive June 01, 2024 3:28pm [facility] Work Phone: 1(367) 838-276103-13-2025 Evaluation note* Diagnosis Onset Date Resolution Status [...] April 27, 2024 3:15pm Orthostatic hypotension acute [facility] 2024 3:15pm Osteoarthritis acute April 3:15pm Severe dehydration acute April 27, 2024 3:15pm Status post cervical spinal fusion acute April 27, 2024 3:15pm Traumatic brain injury with loss of consciousness acute April 27 3:15pm Urinary incontinence acute [facility] 2024 3:15pm Urine retention acute April 3:15pm Anxiety and depression chronic [facility] 2024 3:15pm Bilateral arm weakness chronic [facility] 2024 3:15pm Chronic left shoulder pain chronic April 27, 2024 3:15pm GERD with esophagitis chronic [facility] 2024 3:15pm History of IBS chronic [...] resolved April 3:15pm Urinary tract infection resolved [facility] 2024 3:15pm Cervical myelopathy inactive April 27, 2024 3:15pm Constipation acute May 25, 2024 12:30pm Fecal incontinence acute May 25, 2024 12:30pm Status post cervical spinal fusion acute June 01, 2024 3:28pm Cervical myelopathy inactive June 01, 2024 3:28pm Status post cervical spinal fusion acute August 03, 2024 3:03pm Cervical myelopathy inactive August 03, 2024 3:03pm Generalized weakness acute August 05, 2024 3:43pm Orthostatic lightheadedness acute August 05, 2024 3:43pm [facility] Work Phone: 1(171) 967-482403-13-2025 Evaluation note* Diagnosis Onset Date Resolution Status [...] April 27, 2024 3:15pm Orthostatic hypotension acute [facility] 2024 3:15pm Osteoarthritis acute April 3:15pm Severe dehydration acute April 27, 2024 3:15pm Status post cervical spinal fusion acute April 27, 2024 3:15pm Traumatic brain injury with loss of consciousness acute April 27 3:15pm Urinary incontinence acute 2024 3:15pm Urine retention acute April 3:15pm Anxiety and depression chronic [facility] 2024 3:15pm Bilateral arm weakness chronic [facility] 2024 3:15pm Chronic left shoulder pain chronic April 27, 2024 3:15pm GERD with esophagitis chronic [facility] 2024 3:15pm History of IBS chronic [...] resolved April 3:15pm Left maxillary fracture resolved [facility] 2024 3:15pm Multiple falls resolved April 3:15pm Urinary tract infection resolved [facility] 2024 3:15pm Cervical myelopathy inactive April 27, 2024 3:15pm Constipation acute May 25, 2024 12:30pm Fecal incontinence acute May 25, 2024 12:30pm Status post cervical spinal fusion acute June 01, 2024 3:28pm Cervical myelopathy inactive June 01, 2024 3:28pm Status post cervical spinal fusion acute August 03, 2024 3:03pm Cervical myelopathy inactive August 03, 2024 3:03pm Generalized weakness acute August 06, 2024 1:22pm Orthostatic lightheadedness acute August 06, 2024 1:22pm [facility] Work Phone: 1(202) 262-751303-13-2025 Evaluation note* Diagnosis Onset Date Resolution Status [...] April 27, 2024 3:15pm Orthostatic hypotension acute [facility] 2024 3:15pm Osteoarthritis acute April 3:15pm Severe dehydration acute April 27, 2024 3:15pm Status post cervical spinal fusion acute April 27, 2024 3:15pm Traumatic brain injury with loss of consciousness acute April 27 3:15pm Urinary incontinence acute [facility] 2024 3:15pm Urine retention acute April 3:15pm Anxiety and depression chronic [facility] 2024 3:15pm Bilateral arm weakness chronic [facility] 2024 3:15pm Chronic left shoulder pain chronic April 27, 2024 3:15pm GERD with esophagitis chronic Apr 3:15pm History of IBS chronic April 3:15pm [...] resolved April 3:15pm Left maxillary fracture resolved [facility] 2024 3:15pm Multiple falls resolved April 3:15pm Urinary tract infection resolved [facility] 2024 3:15pm Cervical myelopathy inactive April 27, 2024 3:15pm Constipation acute May 25, 2024 12:30pm Fecal incontinence acute May 25, 2024 12:30pm Status post cervical spinal fusion acute June 01, 2024 3:28pm Cervical myelopathy inactive June 01, 2024 3:28pm Status post cervical spinal fusion acute August 03, 2024 3:03pm Cervical myelopathy inactive August 03, 2024 3:03pm Generalized weakness acute August 06, 2024 1:22pm Orthostatic lightheadedness resolved August 06, 2024 1:22pm [facility] Work Phone: 1(865) 585-387103-13-2025 Progress note [facility] Medical Records Department [address] [place] [address] Progress Note - Hospitalist 04/20/24 0752 MR#: [id number] Acct: [id number] Name: MOEYAS Brigido Rep #:[id number] : 1940 83 From: Keanu Alfred DO PCP: Dr. Kwabena Menjivar MD Status :ADM IN Location: [place] [address] Reason for Visit Reason for Visit: Diagnoses [...] 83.7 H, Lymph % (Auto) 9.8 L, Nobles % (Auto) 5.7, Eos % (Auto) 0.0, [...] (Auto) 73.5 H, Lymph % (Auto) 17.6L, Nobles % (Auto) 8.4, Eos % (Auto) 0.1, [...] use of iterative reconstruction technique). Reading Location: [facility]--1 Facial/Sinus 04/19/24 10:42 IMPRESSION: Mildly depressed [...] use of iterative reconstruction technique). Reading Location: [facility] Head/Neck CTA 04/19/24 10:54 IMPRESSION: RIGHT CAROTID: Unremarkable LEFT CAROTID: Minimal plaque at the origin of the left internal carotid artery. VERTEBRALS: Unremarkable INTRACRANIAL: Unremarkable. One or more dose reduction techniques were used (e.g., Automated exposure control, adjustment of the mA and/or kV according to patient size, use of iterative reconstruction technique). Reading Location: [facility] Chest X-Ray 04/19/24 11:20 IMPRESSION: 1. No visible acute cardiopulmonary findings. 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 Consider outpatient CT chest. 2. Additional description as above. Reading Location: [facility] Brain MRI 04/19/24 15:02 IMPRESSION: 1. No acute intracranial abnormality, specifically no evidence of acute ischemia. 2. Mild atrophy and chronic small-vessel ischemic changes. 3. Acute left facial bone fractures better seen and described on recent facial bone CT. [facility] Cervical Spine MRI 04/19/24 15:02 IMPRESSION: 1. 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 2. Acquired mild to severe multilevel foraminal narrowing. See level by level comments above. 3. 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 Reading Location: [facility] Physical Exam Const alert and no [...] with SCDs Charges/Coding Visit Charges Inpatient E&M: 10238 Subs Hosp L2 04/20/24 1257 Cosigner Signature [...] doing CPR be futile. Procedures Hospitalists Procedures: 64162 Advncd Care Plan 30 Min 04/20/24 1357 Cosigner Signature (if applicable): cc: ~* Signed [facility]03-12-2025 Discharge summary Author Laureano Gallagher [facility] Note Date/Time April 19, 2024 3:2 7pm [facility] Medical Records Department [address] [place] [address] Emergency Department Summary 04/19/24 MR#: [id number] Acct: [id number] Name: YAS ROSA Rep #:[id number] : 1940 83 From: Laureano Colby PCP: Dr. Kwabena Menjivar MD Status :ADM IRINA Location: [place] [address] HPI History of Present Illness Chief Complaint: [...] headache. He does admit to neck pain. [facility] Medical History Irritable bowel syndrome with [...] 83.7 H Lymph % (Auto) 9.8 L Nobles % (Auto) 5.7 Eos % (Auto) 0.0 [...] use of iterative reconstruction technique). Reading Location: [facility]-1 Facial/Sinus 04/19/24 10:42 IMPRESSION: Mildly depressed [...] use of iterative reconstruction technique). Reading Location: [facility]--1 Head/Neck CTA 04/19/24 10:54 IMPRESSION: RIGHT CAROTID: Unremarkable LEFT CAROTID: Minimal plaque at the origin of the left internal carotid artery. VERTEBRALS: Unremarkable INTRACRANIAL: Unremarkable. One or more dose reduction techniques were used (e.g., Automated exposure control, adjustment of the mA and/or kV according to patient size, use of iterative reconstruction technique). Reading Location: [facility] Chest X-Ray 04/19/24 11:20 IMPRESSION: 1. No visible acute cardiopulmonary findings. 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 Consider outpatient CT chest. 2. Additional description as above. Reading Location: [facility] EKG Initial EKG: Attestation: I personally reviewed and interpreted this EKG as follows: Comments: Normal sinus rhythm ventricular rate of 69 bpm Management Discussion w/another healthcare provider: Hospitalist (Dr Alfred) and Distribution Field Technician (Dr Godinez) Discharge Plan Dx/Rx/DC Orders Clinical Impression: Fall, Closed fracture of left maxillary sinus, Epistaxis, Chronic left shoulderpain, Hypertension, Subconjunctival hemorrhage Disposition Disposition: [facility] NIHSS NIHSS 1a. Level of Consciousness: Alert; [...] problems, contact your Primary Care Provider. Call [facility] ([phone]) or report to the closest Emergency Room. Call 911 if necessary. 04/19/24 0580 <Electronically signed by Laureano Gallagher DO> Cosigner Signature (if applicable): CC: Dr. Kwabena Menjivar MD ~ Signed [facility] Work Phone: 1(432) 289-946503-12-2025 Consult note Author Yas Godinez [facility] Note Date/Time April 19, 2024 3:1 8pm [facility] Medical Records Department [address] [place] [address] Consultation - Surgical 04/19/24 1140 MR#: [id number] Acct: [id number] Name: YAS ROSA Rep #:[id number] : 1940 83 From: Yas Godinez MD PCP: Dr. Kwabena Menjivar MD Status :ADM IRINA Location: [place] [address] Assessment & Plan Assessment/Plan (1) Maxillary fracture, [...] a few weeks ago with another fall. [facility] Medical History Anxiety Irritable bowel syndrome [...] 83.7 H, Lymph % (Auto) 9.8 L, Nobles % (Auto) 5.7, Eos % (Auto) 0.0, [...] use of iterative reconstruction technique). Reading Location: [facility]--1 Facial/Sinus 04/19/24 10:42 IMPRESSION: Mildly depressed [...] use of iterative reconstruction technique). Reading Location: [facility]--1 Head/Neck CTA 04/19/24 10:54 IMPRESSION: RIGHT CAROTID: Unremarkable LEFT CAROTID: Minimal plaque at the origin of the left internal carotid artery. VERTEBRALS: Unremarkable INTRACRANIAL: Unremarkable. One or more dose reduction techniques were used (e.g., Automated exposure control, adjustment of the mA and/or kV according to patient size, use of iterative reconstruction technique). Reading Location: [facility]--1 Chest X-Ray 04/19/24 11:20 IMPRESSION: 1. No visible acute cardiopulmonary findings. 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 Consider outpatient CT chest. 2. Additional description as above. Reading Location: [facility] Charges/Coding Multi Select Codes Visit Charges Office Visit/Consults: 00129 OV L5 New 60min 04/19/24 1518 <Electronically signed by Yas Godinez MD> Cosigner Signature (if applicable): CC: Dr. Kwabena Menjivar MD~ Signed [facility] Work Phone: 1(930) 401-829403-12-2025 History and physical note Author Keanu Alfred [facility] Note Date/Time April 19, 2024 2:0 4pm [facility] Medical Records Department [address] [place] [address] H&P Exam - Hospitalist 04/19/24 1323 MR#: [id number] Acct: [id number] Name: YAS ROSA Rep #:[id number] : 1940 83 From: Keanu Alfred DO PCP: Dr. Kwabena Menjivar MD Status :ADM IRINA Location: [place] [id number]- 1 HPI - General General Date of [...] he has not seen the surgeon yet. [facility] Medical History (Updated 04/19/24 @ 13:32 [...] 83.7 H, Lymph % (Auto) 9.8 L, Nobles % (Auto) 5.7, Eos % (Auto) 0.0, [...] use of iterative reconstruction technique). Reading Location: [facility] Facial/Sinus 04/19/24 10:42 IMPRESSION: Mildly depressed [...] use of iterative reconstruction technique). Reading Location: [facility]--1 Head/Neck CTA 04/19/24 10:54 IMPRESSION: RIGHT CAROTID: Unremarkable LEFT CAROTID: Minimal plaque at the origin of the left internal carotid artery. VERTEBRALS: Unremarkable INTRACRANIAL: Unremarkable. One or more dose reduction techniques were used (e.g., Automated exposure control, adjustment of the mA and/or kV according to patient size, use of iterative reconstruction technique). Reading Location: [facility] Chest X-Ray 04/19/24 11:20 IMPRESSION: 1. No visible acute cardiopulmonary findings. 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 Consider outpatient CT chest. 2. Additional description as above. Reading Location: [id number] Assessment & Plan Assessment/Plan (1) Syncope: PLAN: [...] hospitalist I have informed ED RN and subwarehouse supervisor that patient will need to be seen [...] until Wednesday. Charges/Coding Visit Charges Inpatient E&M: 69002 Init Hosp L3 04/19/24 1404 <Electronically signed by Keanu Alfred DO> Cosigner Signature (if applicable): CC: Dr. Kwabena Menjivar MD; Dr. Keanu Alfred DO~ Signed [facility] Work Phone: 1(119) 748-125303-12-2025 Discharge summary [facility] Medical Records Department [address] [place] [address] Emergency Department Summary 04/19/24 MR#: [id number] Acct: [id number] Name: YAS ROSA Rep #:[id number] : 1940 83 From: Laureano Colby PCP: Dr. Kwabena Menjivar MD Status :ADM IRINA Location: [place] [address] HPI History of Present Illness Chief Complaint: [...] headache. He does admit to neck pain. [facility] Medical History Irritable bowel syndrome with diarrhea [...] 83.7 H Lymph % (Auto) 9.8 L Nobles % (Auto) 5.7 Eos % (Auto) 0.0 [...] use of iterative reconstruction technique). Reading Location: [facility] Facial/Sinus 04/19/24 10:42 IMPRESSION: Mildly depressed [...] use of iterative reconstruction technique). Reading Location: [facility]--1 Head/Neck CTA 04/19/24 10:54 IMPRESSION: RIGHT CAROTID: Unremarkable LEFT CAROTID: Minimal plaque at the origin of the left internal carotid artery. VERTEBRALS: Unremarkable INTRACRANIAL: Unremarkable. One or more dose reduction techniques were used (e.g., Automated exposure control, adjustment of the mA and/or kV according to patient size, use of iterative reconstruction technique). Reading Location: [facility]--1 Chest X-Ray 04/19/24 11:20 IMPRESSION: 1. No visible acute cardiopulmonary findings. 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 Consider outpatient CT chest. 2. Additional description as above. Reading Location: [facility] EKG Initial EKG: Attestation: I personally reviewed and interpreted this EKG as follows: Comments: Normal sinus rhythm ventricular rate of 69 bpm Management Discussion w/another healthcare provider: Hospitalist (Dr Alfred) and Distribution Field Technician (Dr Godinez) Discharge Plan Dx/Rx/DC Orders Clinical Impression: Fall, Closed fracture of left maxillary sinus, Epistaxis, Chronic left shoulderpain, Hypertension, Subconjunctival hemorrhage Disposition Disposition: Acute Care Hospital [facility] NIHSS NIHSS 1a. Level of Consciousness: [...] problems, contact your Primary Care Provider. Call [facility] ([phone]) or report tothe closest Emergency Room. Call 911 if necessary. 04/19/24 1527 Cosigner Signature (if applicable): CC: Dr. Kwabena Menjivar MD ~ Signed [facility]03-12-2025 Consult note [facility] Medical Records Department [address] [place] [address] Consultation - Surgical 04/19/24 1140 MR#: [id number] Acct: [id number] Name: MOEYAS Brigido Rep #:[id number] : 1940 83 From: Yas Godinez MD PCP: Dr. Kwabena Menjivar MD Status :ADM IRINA Location: [place] [address] Assessment & Plan Assessment/Plan (1) Maxillary fracture, [...] a few weeks ago with another fall. [facility] Medical History Anxiety Irritable bowel syndrome [...] 83.7 H, Lymph % (Auto) 9.8 L, Nobles % (Auto) 5.7, Eos % (Auto) 0.0, [...] use of iterative reconstruction technique). Reading Location: [facility]-1 Facial/Sinus 04/19/24 10:42 IMPRESSION: Mildly depressed [...] use of iterative reconstruction technique). Reading Location: [facility]-1 Head/Neck CTA 04/19/24 10:54 IMPRESSION: RIGHT CAROTID: Unremarkable LEFT CAROTID: Minimal plaque at the origin of the left internal carotid artery. VERTEBRALS: Unremarkable INTRACRANIAL: Unremarkable. One or more dose reduction techniques were used (e.g., Automated exposure control, adjustment of the mA and/or kV according to patient size, use of iterative reconstruction technique). Reading Location: [facility]-1 Chest X-Ray 04/19/24 11:20 IMPRESSION: 1. No visible acute cardiopulmonary findings. 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 Consider outpatient CT chest. 2. Additional description as above. Reading Location: [id number] Charges/Coding Multi Select Codes Visit Charges Office Visit/Consults: 96219 OV L5 New 60min 04/19/24 1518 Cosigner Signature (if applicable): CC: Dr. Kwabena Menjivar MD~ Signed [facility]03-12-2025 History and physical note [facility] Medical Records Department [address] [place] [address] H&P Exam - Hospitalist 04/19/24 1323 MR#: [id number] Acct: [id number] Name: YAS ROSA Rep #:[id number] : 1940 83 From: Keanu Alfred DO PCP: Dr. Kwabena Menjivar MD Status :ADM IRINA Location: [facility] [id number] HPI - General General Date of [...] he has not seen the surgeon yet. [facility] Medical History (Updated 04/19/24 @ 13:32 [...] 83.7 H, Lymph % (Auto) 9.8 L, Nobles % (Auto) 5.7, Eos % (Auto) 0.0, [...] use of iterative reconstruction technique). Reading Location: [facility]-1 Facial/Sinus 04/19/24 10:42 IMPRESSION: Mildly depressed [...] use of iterative reconstruction technique). Reading Location: [facility]-1 Head/Neck CTA 04/19/24 10:54 IMPRESSION: RIGHT CAROTID: Unremarkable LEFT CAROTID: Minimal plaque at the origin of the left internal carotid artery. VERTEBRALS: Unremarkable INTRACRANIAL: Unremarkable. One or more dose reduction techniques were used (e.g., Automated exposure control, adjustment of the mA and/or kV according to patient size, use of iterative reconstruction technique). Reading Location: [facility]-1 Chest X-Ray 04/19/24 11:20 IMPRESSION: 1. No visible acute cardiopulmonary findings. 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 Consider outpatient CT chest. 2. Additional description as above. Reading Location: [id number] Assessment & Plan Assessment/Plan (1) Syncope: PLAN: [...] hospitalist I have informed ED RN and subwarehouse supervisor that patient will need to be seen [...] until Wednesday. Charges/Coding Visit Charges Inpatient E&M: 55170 Init Hosp L3 04/19/24 1404 Cosigner Signature (if applicable): CC: Dr. Kwabena Menjivar MD; Dr. Keanu Alfred DO~ Signed [facility]03-12-2025 Radiology Diagnostic study note [facility] Imaging Services [address] [place], [place] [id number] Chest 1 View MR#: [id number] Acct: [id number] Name: YAS ROSA Rep #: [id number] : 1940 M 83 From: Aura Andersen MD PCP: Dr. Kwabena Menjivar MD Status: REG ER Study:Chest 1 View Date of Exam: 5 Exam# [id number] Ordering Dr: Jennie Gallagher DO PROCEDURE: CHEST [...] 2. Additional description as above. Reading Location: [facility] CC: Dr. Kwabena Menjivar MD; Dr. Laureano Gallagher DO ~ Rehabilitation Director: Signed [facility]03-12-2025 Radiology Diagnostic study note [facility] Imaging Services [address] [place], [place] [address] STROKE CTA Head AND Neck W/Con MR#: [id number] Acct: [id number] Name: YAS ROSA Rep #: [id number] : 1940 M 83 From: Ag Luna MD PCP: Dr. Kwabena Menjivar MD Status: REG ER Study:STROKE CTA Head AND Neck W/Con Date of Exam: 04/19/24 Exam# [id number] Ordering Dr: Jennie Gallagher DO PROCEDURE: STROKE [...] use of iterative reconstruction technique). Reading Location: [facility]--1 CC: Dr. Kwabena Menjivar MD; Dr. Laureano Gallagher DO ~ Rehabilitation Director: Signed [facility]03-12-2025 Radiology Diagnostic study note [facility] Imaging Services [address] [place], [place] [address] Sinus/Facial Bone MR#: [id number] Acct: [id number] Name: YAS ROSA Rep #: [id number] : 1940 M 83 From: Ag Luna MD PCP: Dr. Kwabena Menjivar MD Status: REG ER Study:Sinus/Facial Bone Date of Exam: Exam# [id number] Ordering Dr: Jennie Gallagher DO PROCEDURE: SINUS/FACIAL [...] of iterative reconstruction technique). Reading Location: [facility] CC: Dr. Kwabena Menjivar MD; Dr. Laureano Gallagher DO ~ Rehabilitation Director: Signed [facility]03-12-2025 Radiology Diagnostic study note [facility] Imaging Services [address] [place], [place] [address] STROKE Brain/Head without Cont MR#: [id number] Acct: [id number] Name: YAS ROSA Rep #: [id number] : 1940 M 83 From: Ag Luna MD PCP: Dr. Kwabena Menjivar MD Status: REG ER Study:STROKE Brain/Head without Cont Date of Exam: 04/19/24 Exam# [id number] Ordering Dr: Jennie Gallagher DO PROCEDURE: STROKE [...] use of iterative reconstruction technique). Reading Location: [place] [address] CC: Dr. Kwabena Menjivar MD; Dr. Laureano Gallagher DO ~ Rehabilitation Director: Signed [facility]09-06-2023 Discharge summary Author Keanu Holt [facility] October 14, 2022 10:45am Note Date/Time October 14, 2022 10:45am [facility] Physical Therapy Health[address] [place] [address] / REHABILITATION SERVICES DISCHARGE SUMMARY MR#: [id number] Acct: [id number] Name: YAS ROSA Rep #: [id number] : 1940 81 From: Keanu Holt DPT, [...] please feel free to call me at [phone]. Thank you for the referral of thispatient. Sincerely, Keanu Holt, DPT, OCS, CSCS Balance/Gait/Functional tests Balance/Special Test Scores Oswestry Neck Score: 31 Quick DASH Score: 38.6350 Improvement % Improvement: 10 <Electronically signed by Keanu Holt DPT, OCS, CSCS> 10/14/22 1045 CC: Dr. William Menjivar MD ~ EBG Signed [facility] Work Phone: Discharge summary Author Harish Baxter [facility] Note Date/Time April 27, 2024 1:5 7pm [facility] Medical Records Department [address] [place] [address] Discharge Summary 04/27/24 1353 MR#: [id number] Acct: [id number] Name: YAS ROSA Rep #:[id number] : 1940 83 From: Harish Schneider PCP: Dr. Kwabena Menjivar MD Status :ADM IN Location: [place] [address] Providers Date of Admission: 04/20/24 Date of Discharge: 04/27/24 Primary Care Physician: Dr. Kwabena Menjivar MD Consultations 04/19/24 15:02 Consult: Plastic Surgery Routine Consulting Provider: Yas Godinez Reason for Consult: left maxilofacial fracture. EMERGENT Consult: No Notified: Yes Date Notified: 04/19/24 Time Notified: 13:21 Method of Notification: ED Physician Initiated 04/20/24 07:57 Consult: Orthopedics Routine Consulting Provider: Ciro Diego Reason for Consult: spinal stenosis with left arm weakness. EMERGENT Consult: No Notified: Yes Date Notified: 04/20/24 Time Notified: [...] fluid was changed in the morning. Has [place] drain therefore expected drainage. H&H is stable, [...] (Auto) 78.8 H, Lymph % (Auto) 14.3L, Nobles % (Auto) 5.8, Eos % (Auto) 0.0, [...] fluoroscopic images were also obtained. Reading Location: [address] Cervical Spine X-Ray 04/26/24 11:05 IMPRESSION: Intraoperative fluoroscopy performed for anterior cervical discectomy and fusionsurgery. 10 fluoroscopic images were also obtained. Reading Location: [address] Cervical Spine X-Ray 04/27/24 07:00 IMPRESSION: Osteopenia. Interval placement of a metallic fixation plate at the anterior margin of C3-C6. Interval placement of interbody spacer devices at C3-4, C4-5, and C5-6. No acute bony abnormality of the cervical spine. Similar moderate/severe degenerative disc disease at C6-7. [facility] Discharge Diet: Light diet [...] Self Care Charges/Coding Visit Charges Inpatient E&M: 72600 Disch Hosp >30min 04/27/24 1357 <Electronically signed by Harish Baxter MD> Cosigner Signature (if applicable): CC: Dr. Kwabena Menjivar MD; Dr. Harish Baxter MD~ Signed [facility] Work Phone: Discharge summary Author Jacoby Mendoza [facility] Note Date/Time August 09, 2024 12:50 pm [facility] Medical Records Department [address] [place] [address] Transfer to [facility] MR#: [id number] Acct: [id number] Name: YAS ROSA Rep #:[id number] : 1940 83 From: Jacoby Mendoza MD PCP: Dr. Kwabena Menjivar MD Status :ADM IN Certification of patient admission REQUIRED AT TIME OF ADMISSION. I CERTIFY THAT POST-HOSPITAL ECF SERVICES ARE REQUIRED TO BE GIVEN ON AN IN-PATIENT BASIS BECAUSE OF THE ABOVE NAMED PATIENT'S NEED FOR SKILLED NURSING CARE ON A CONTINUING BASIS FOR THE CONDITION(S) FOR WHICH HE/SHE WAS RECEIVING IN-PATIENT HOSPITAL SERVICES PRIOR TO HIS/HER TRANSFER TO THE ECF. 08/09/24 0829<Electronically signed by Jacoby Mendoza MD> Diet Diet Order/Speech Therapy: INPATIENT Hospital Diet / Speech Therapy Order(s) 08/05/24 16:27 Diet: Regular - General Food consistency:: Mechanical (Minced/Moist) Liquid Consistency:: Regular/Thin Diet Comments: Send strawberry ensure on meal trays Routine Orders/Code Status Code Status: DNRCC-A DC O2, CPAP, BIPAP needs Home O2 Discharge instructions: No Wound(s) carlos manuel lower leg: Wound Type: Abrasion Therapies Physical Therapy: Eval and Treat Occupational Therapy: Eval and Treat Problem/Diagnosis (1) Generalized weakness: Status: Acute Code(s): R53.1 - Weakness Plan Patient is an 83-year-old male admitted with significant debility. Patient had apparently undergone multilevel cervical fusion in April 2024. He has since continued to develop progressive generalized weakness 1. Physical deconditioning ? Requested for PT OT eval and social service assistant to assist with discharge planning. 08/09/2024; patient was discharged on 03/12/2024 after he met his qualifying days 2. Orthostatic hypotension ? This was felt to be contributing to patient's symptoms patient was placed on midodrine for symptom management ? 08/09/2024; patient orthostatic hypotension resolved had been started on midodrine during his hospital stay discontinued on discharge 3. Degenerative joint disease ? With history of cervical fusion on 04/26/2024 4. Depression ? Patient is on bupropion as well as Remeron at night 5.DVT prophylaxis ? On enoxaparin Time spent in the patient's overall evaluation,decision-making process, review of diagnostic data, adjustment of management, discussion with other providers, nursing nursing and ancillary staff involved in patient's care documentation, 35 Minutes Allergies/Procedures Done in Hospital Allergies No Known Allergies Allergy (Verified 08/05/24 11:37) Type of Care/Length of Stay Estimated LOS: Convalescent Care Less Than 30 days Type of Care Needed: Skilled Rehab Potential: Good Prognosis: Good Additional Orders/Day of Discharge Day of Discharge: 08/09/24 Dietary and Speech Recommendations Dietitian Recommendations/Changes: Continue Regular diet with texture/consistency per [employer]ODU[employer] DEMONSTRATOR to optimize oral intakes. Will order 120mL Ensure Plus High Protein 4x daily to provide supplemental energy and to promote weight maintainence. Discharge Plan Admission Admit Date/Time: 08/06/24 13:22 Attending Provider: Jacoby Mendoza Primary Care Provider: Kwabena Menjivar Consulting Providers: Yu Bradley; Keanu Collier Discharge Orders/Prescriptions Prescriptions: New acetaminophen 325 mg Tablet 650 mg PO Q6H PRN PRN (Reason: Pain 1-10 Or Fever >100.7) Qty: 0 0RF albuterol sulfate 2.5 mg /3 mL (0.083 %) Solution For Nebulization 2.5 mg inhalation Q2H PRN PRN (Reason: SOB &/OR WHEEZING) Qty: 0 0RF duloxetine 30 mg Capsule,Delayed Release(Dr/Ec) 30 mg PO DAILY Qty: 0 0RF melatonin 10 mg Tablet, Sublingual 10 mg PO QHS PRN PRN (Reason: Insomnia) Qty: 0 0RF Ensure Plus High Protein 0.08 gram-1.5 kcal/mL Liquid 120 ml PO 4X/DAY Qty: 0 0RF Continued midodrine 5 mg Tablet 10 mg PO 0700,1100,1500 Qty: 0 0RF pantoprazole 40 mg Tablet,Delayed Release (Dr/Ec) 40 mg PO BID Qty: 0 0RF mirtazapine 15 mg Tablet 15 mg PO QHS Qty: 0 0RF gabapentin 100 mg Capsule 100 mg PO BIDCM Qty: 0 0RF Ensure Plus High Protein 0.08 gram-1.5 kcal/mL Liquid 120 ml PO 4X/DAY Qty: 0 0RF sennosides-docusate sodium [Stimulant Laxative Plus] 8.6-50 mg Tablet 2 tab PO BID Qty: 0 0RF bupropion HCl 150 mg tablet extended release 24 hr 150 mg PO DAILY Referrals / Follow Up: Kwabena Menjivar MD [Primary Care Provider] - Disposition Disposition (needs filled in before D/C Order can be placed): [facility] 08/09/24 0829 <Electronically signed by Jacoby Mendoza MD> Cosigner Signature (if applicable): CC: Dr. Kwabena Menjivar MD; Dr. Keanu Collier, DO; Dr. Yu Bradley MD ~ [facility] Work Phone: Evaluation noteNo assessment information available [facility] Work Phone: Evaluation note* Diagnosis Onset [...] 12:44pm Hypertension chronic April 19, 2024 12:44pm [facility] Work Phone: History and physical note Author Yu Bradley [facility] Note Date/Time August 05, 2024 4:11 pm [facility] Medical Records Department [address] [place] [address] H&P Exam - Hospitalist 08/05/24 1543 MR#: [id number] Acct: [id number] Name: YAS ROSA Rep #:[id number] : 1940 83 From: Yu Bradley MD PCP: Dr. Kwabena Menjivar MD Status :ADM IRINA Location: [place] [address] HPI - General General Date of Admission: 08/05/24 Date of Service: 08/05/24 Chief Complaint: Generalized weakness, lightheaded on standing HPI Narrative YAS ROSA, is a 83-year-old male history of anxiety, IBS, depression, GERD, cervical myelopathy with surgery in April presented [facility] ED 08/05/2024 with complaint of worsening generalized weakness as well as some intermittent lightheadedness that has been present since surgery. He feels veryweak and has difficulty lifting his walker even with the weakness. Also reportsconstipation for the past 4 days. In the ED temp 98.5 with heart rate 78, SBP 135/104 w/ RR 18 and pulse ox 100% on RA, orthostats were found to be positive. White blood cell count within normal limits, hemoglobin 12.3, platelets 208. Lactic acid 1.3 and CMP unremarkable. Given patient's generalized weakness and orthostatic vital signs positive hospitalist contacted for admission. Patient evaluated family members at bedside, patient has been home from [place] for the[facility] couple weeks but has had difficulties with lightheaded on standing intermittently despite being started on midodrine and feeling generally weak which has been present since surgery but has been slowly worsening, also intermittently gets cramps on his left side. Patient has chronic residual left upper extremity deficits and reports he has tingling all over with neuropathy. Did start taking gabapentin earlier this week. Also has been having difficultywith food sticking and does report constipation as above with no nausea or abdominal pain. No chest pain or shortness of breath, no fever headache. No other new acute complaints [facility] Medical History Cervical myelopathy Angiectasia of large intestine History of gastric polyp GERD with esophagitis Postural dizziness with near syncope Bilateral arm weakness Osteoarthritis Anxiety and depression Ventral hernia Loss of hearing Wears glasses Wears dentures Alcohol use History of IBS Heartburn Former smoker History of stress test Home Medications ?Medication ?Instructions ?Recorded ?Last Taken ?Type sennosides 8.6 mg-docusate sodium 2 tab PO BID laxativ e #0 tabs 04/27/24 Unknown Rx 50 mg tablet (Stimulant Laxative Plus) benzocaine 15 mg-menthol 3.6 mg 1 juliet mucous membrane Q2H PRN PRN 05/18/24 Unknown Rx lozenges (Sore Throat (benzocaine SORE THROAT #0 ea with menthol)) bisacodyl 10 mg rectal suppository 10 mg [place] X1 PRN Con stipation #0 ea 05/18/24 Unknown Rx carboxymethylcellulose sodium 0.5 2 drp EACH EYE Q1H P RN DRY EYES #0 05/18/24 Unknown Rx % eye drops (Refresh Tears) mL food supplemt, lactose-reduced 120 ml PO 4X/DAY #0 mL 05/18/24 Unknown Rx 0.08 gram-1.5 kcal/mL oral liquid (Ensure Plus High Protein) gabapentin 100 mg capsule 100 mg PO BIDCM #0 caps 05/09 Unknown Rx magnesium hydroxide 400 mg/5 mL 30 ml PO X1 PRN Consti pation #0 mL 05/18/24 Unknown Rx oral suspension menthol 0.44 %-zinc oxide 20.6 % 1 applic topical BID #0 grams 05/18/24 Unknown Rx topical ointment (Calmoseptine) midodrine 5 mg tablet 10 mg (2 x 5 mg) PO 0700,110 0,1500 05/18/24 Unknown Rx #0 tabs mirtazapine 15 mg tablet 15 mg PO QHS #0 tabs 5 Unknown Rx pantoprazole 40 mg tablet,delayed 40 mg PO BID #0 tabs 05/18/24 Unknown Rx release calcium polycarbophil 625 mg 1,250 mg (2 x 625 mg) PO QDAY #180 05/25/24 Unknown Rx tablet (FiberCon) tabs hydrocortisone acetate 25 mg 25 mg [place] QHS #12 ea 05/25 Unknown Rx rectal suppository (Anusol-HC) Allergy/AdvReac Type Severity Reaction Status Date / Time No Known Allergies Allergy Verified 08/05/24 11:37 Family History Father , at 40 YOA of an MA Heart disease Other Hypertension Surgical History Status post cervical spinal fusion History of esophagogastroduodenoscopy (EGD) Hx of colonoscopy History of tonsillectomy and adenoidectomy History of appendectomy Social History household members: none and other details: He [...] type: does not use ROS ROS Narrative General: Denies fever/chills HENT: Denies headache, denies stuffy nose, denies sore throat EYES: Denies changes in vision Resp: Denies cough, denies shortness of breath Cardiac: Denies chest pain GI: Denies abdominal pain, constipation for 4 days, denies nausea/vomiting : Denies changes in urination Extremity: Denies swelling MSK: Generalized weakness, chronic left upper extremity deficit Neuro: Has some chronic left-sided deficits, reports he has tingling in extremities which is not necessarily new Heme: Denies any bleeding or bruising Skin: Denies rashes Psychiatric: No complaints voiced Vital Signs Vital Signs Vital Signs: 08/05/24 11:33 08/05/24 12:11 08/05/24 13:19 Temperature 98.5 F Temperature Source Oral Pulse Rate 78 Pulse Rate [Lying] 73 Pulse Rate [Sitting (for 1 minute prior to obtaining)] 72 Pulse Rate [Standing (for 1 minute prior to obtaining)] 75 Respiratory Rate 18 Respiratory Effort Normal Respiratory Pattern Normal Blood Pressure 135/104 H Blood Pressure [Lying] 168/87 H Blood Pressure [Sitting (for 1 minute prior to obtaining)] 160/74 H Blood Pressure [Standing (for 1 minute prior to obtaining)] 143/73 H Blood Pressure Mean 114 Blood Pressure Mean [Lying] 114 Blood Pressure Mean [Sitting (for 1 minute prior to obtaining)] 102 Blood Pressure Mean [Standing (for 1 minute prior to obtaining)] 96 Pulse Ox 100 Oxygen Delivery Method Room Air 08/05/24 13:31 08/05/24 15:00 Temperature Temperature Source Pulse Rate 67 78 Pulse Rate [Lying] Pulse Rate [Sitting (for 1 minute prior to obtaining)] Pulse Rate [Standing (for 1 minute prior to obtaining)] Respiratory Rate 15 16 Respiratory Effort Respiratory Pattern Blood Pressure 187/74 H 168/94 H Blood Pressure [Lying] Blood Pressure [Sitting (for 1 minute prior to obtaining)] Blood Pressure [Standing (for 1 minute prior to obtaining)] Blood Pressure Mean 111 118 Blood Pressure Mean [Lying] Blood Pressure Mean [Sitting (for 1 minute prior to obtaining)] Blood Pressure Mean [Standing (for 1 minute prior to obtaining)] Pulse Ox 100 100 Oxygen Delivery Method Room Air Room Air Weight Weight: 74 kg Body Mass Index (BMI) 24.7 Physical Exam Narrative General: Alert, no apparent distress HEENT: Atraumatic, normocephalic Eyes: Anicteric, normal conjunctiva, extraocular movements grossly intact Neck: Supple Respiratory: Clear to auscultation bilaterally, normal respiratory effort Cardiovascular: Regular rate GI: Soft, nontender, nondistended Extremities: No significant pitting edema Musculoskeletal: Patient with limited movement in left upper extremity Neuro: Has some chronic left-sided deficits, diffusely weak Skin: No rashes appreciated Psych: Overall cooperative Results Lab / Micro Data 08/05/24 12:00 08/05/24 12:00 Labs: Laboratory Results - last 24 hr 08/05/24 12:00: WBC 8.4, RBC 4.22 L, Hgb 12.3 L, Hct 37.0 L, MCV 87.7, MCH 29.1,MCHC 33.2, RDW Std Deviation 41.0, RDW Coeff of Delia 12.9, Plt Count 208, MPV 8.7, Immature Gran % (Auto) 0.200, Neut % (Auto) 57.7, Lymph % (Auto) 31.4, Nobles% (Auto) 8.2, Eos % (Auto) 2.0, Baso % (Auto) 0.5, Absolute Neuts (auto) 4.8, Absolute Lymphs (auto) 2.63, Nucleated RBC % 0, Sodium 138, Potassium 4.3, Chloride 103, Carbon Dioxide 23.8, Anion Gap 12, BUN 18, Creatinine 0.87, Estim Creat Clear Calc 63.33, Est GFR (MDRD) Non-Af 86, BUN/Creatinine Ratio 21.1 H, Glucose 93, Calcium 9.4, Total Bilirubin 0.41, AST 25, ALT 23, Alkaline Phosphatase 120, Troponin T High Sens 39 H D, Total Protein 6.4, Albumin 4.0, Globulin 2.4, Albumin/Globulin Ratio 1.7, Lipase 15 08/05/24 12:25: Lactic Acid 1.3 08/05/24 13:15: Urine Color Yellow, Urine Clarity Clear, Urine pH 7.0, Ur Specific [place] 1.010, Urine Protein Negative, Urine Glucose (UA) Normal, UrineKetones Negative, Urine Occult Blood Negative, Urine Nitrite Negative, Urine Bilirubin Negative, Urine Urobilinogen Normal, Ur Leukocyte Esterase Negative, Urine RBC 0 SEEN, Urine WBC 0 SEEN, Ur Squamous Epith Cells 0 SEEN, Urine Bacteria 0 SEEN, Urine Mucus 0 SEEN 08/05/24 14:00: Troponin T Hi Sens 2 Hr 36 H Imaging Radiology Impression Brain CT 08/05/24 12:10 IMPRESSION: No acute intracranial process. Reading Location: [facility] Cervical Spine CT 08/05/24 12:10 IMPRESSION: No acute cervical fracture or subluxations. Moderate multilevel degenerative changes of the cervical spine as above. Cervical ACDF spanning C3-C6 with interbody spacers. Reading Location: [facility] Assessment & Plan Assessment/Plan (1) Orthostatic lightheadedness: (2) Generalized weakness: PLAN: Plan #Positive orthostatic vital signs and generalized weakness -SBP lying 168/87 and standing 143/73 with dizziness and weakness -Will obtain echo -Appears patient has been on gabapentin since 07/29 which may be contributing/worsening symptoms, will hold - Given his neuropathy he is agreeable to trialing Cymbalta and holding gabapentin - Recent TSH within normal limits - Check a.m. cortisol - Patient given fluids in the ED - Patient has been on midodrine for couple of days and is hypertensive but stillhas drop in blood pressure, will hold midodrine while evaluating other underlying etiology # Recent surgery for cervical myelopathy -CT of the C-spine with no acute appearing process -PT/OT -Did recently follow w/ Dr. Diego on 08/03 -Supportive care #Sticking feeling w/ swallowing - Speech therapy consult #Elevated troponin - Troponin of 39 without chest pain, in April it was 31, repeat troponin 36 -May be due to blood pressure fluctuations -Patient to have echocardiogram as above - Do not expect any kind of ACS or cardiac event #Depression/anxiety - Continue Wellbutrin, patient to be started on Cymbalta #GERD -Continue PPI #DVT ppx: Lovenox subcu Yu Bradley MD Charges/Coding Visit Charges Inpatient E&M: 02556 Init Hosp L2 08/05/24 1611 <Electronically signed by Yu Bradley MD> Cosigner Signature (if applicable): CC: Dr. Kwabena Menjivar MD; Dr. Yu Bradley MD~ Signed [facility] Work Phone: Hospital Discharge instructionsAdditional Instructions [facility]: [facility] Reason for referral (narrative)No reason for referral information availableWFirelands Regional [facility] Center Work Phone: Summary Purpose Family History No Family History Records Found Relationship Condition Age at Onset Recorded Date/T adia Not Specified Hypertension Unknown father Cardiac disease Unknown Advance Directives No Advanced Directives Records Found Advance Directive Response Recorded Date/ Time Living Will No November 11 8:37am Power of Outside Solar Sales Consultant No November 11 8:37am Advance Directive Response Recorded Date/ Time Living Will No February 25 11:01am Power of Outside Solar Sales Consultant No February 26, 2024 11:01am Living Will Yes April 19, 2024 11:02am Power of Outside Solar Sales Consultant Yes April 19 11:02am Name of Medical Power of Outside Solar Sales Consultant ? April 19, 2024 11:02am Advance Directive Response Recorded Date/ Time Living Will No February 25 11:01am Do you have a Healthcare Power of Outside Solar Sales Consultant? No February 26, 2024 11:01am Living Will Yes April 26, 2024 3:54pm Do you have a Healthcare Power of Outside Solar Sales Consultant? Yes April 26, 2024 3:54pm Name of Medical Power of Outside Solar Sales Consultant ? April 26, 2024 3:54pm Advance Directive Response Recorded Date/ Time Living Will No February 25 11:01am Do you have a Healthcare Power of Outside Solar Sales Consultant? No February 26, 2024 11:01am Living Will Yes April 29, 2024 5:19pm Do you have a Healthcare Power of Outside Solar Sales Consultant? Yes April 29, 2024 5:19pm Name of Medical Power of Outside Solar Sales Consultant RIVERA ROSA April 29, 2024 5:19pm Living Will Yes April 26, 2024 3:54pm Do you have a Healthcare Power of Outside Solar Sales Consultant? Yes April 26, 2024 3:54pm Name of Medical Power of Outside Solar Sales Consultant ? April 26, 2024 3:54pm Advance Directive Response Recorded Date/ Time Living Will Yes April 29, 2024 5:19pm Do you have a Healthcare Power of Outside Solar Sales Consultant? Yes April 29, 2024 5:19pm Name of Medical Power of Outside Solar Sales Consultant RIVERA ROSA April 29, 2024 5:19pm Living Will Yes April 26, 2024 3:54pm Do you have a Healthcare Power of Outside Solar Sales Consultant? Yes April 26, 2024 3:54pm Name of Medical Power of Outside Solar Sales Consultant ? April 26, 2024 3:54pm Advance Directive Response Recorded Date/ Time Living Will Yes April 29, 2024 5:19pm Do you have a Healthcare Power of Outside Solar Sales Consultant? Yes April 29, 2024 5:19pm Name of Medical Power of Outside Solar Sales Consultant RIVERA ROSA April 29, 2024 5:19pm Living Will Yes April 26, 2024 3:54pm Do you have a Healthcare Power of Outside Solar Sales Consultant? Yes April 26, 2024 3:54pm Name of Medical Power of Outside Solar Sales Consultant ? April 26, 2024 3:54pm Do you have a Healthcare Power of Outside Solar Sales Consultant? Yes August 05, 2024 12:11pm Advance Directive Response Recorded Date/ Time Living Will Yes April 29, 2024 5:19pm Do you have a Healthcare Power of Outside Solar Sales Consultant? Yes April 29, 2024 5:19pm Name of Medical Power of Outside Solar Sales Consultant RIVERA ROSA April 29, 2024 5:19pm Living Will Yes April 26, 2024 3:54pm Do you have a Healthcare Power of Outside Solar Sales Consultant? Yes April 26, 2024 3:54pm Name of Medical Power of Outside Solar Sales Consultant ? April 26, 2024 3:54pm Do you have a Healthcare Power of Outside Solar Sales Consultant? Yes August 05, 2024 4:32pm Name of Medical Power of Outside Solar Sales Consultant rivera August 05, 2024 4:32pm Advance Directive Response Recorded Date/ Time Living Will Yes April 29, 2024 5:19pm Do you have a Healthcare Power of Outside Solar Sales Consultant? Yes April 29, 2024 5:19pm Name of Medical Power of Outside Solar Sales Consultant RIVERA ROSA April 29, 2024 5:19pm Living Will Yes April 26, 2024 3:54pm Do you have a Healthcare Power of Outside Solar Sales Consultant? Yes April 26, 2024 3:54pm Name of Medical Power of Outside Solar Sales Consultant ? April 26, 2024 3:54pm Do you have a Healthcare Power of Outside Solar Sales Consultant? Yes August 05, 2024 4:32pm Name of Medical Power of Outside Solar Sales Consultant rivera August 05, 2024 4:32pm Do you have a Healthcare Power of Outside Solar Sales Consultant? Yes August 11, 2024 9:10am Name of Medical Power of Outside Solar Sales Consultant August 11, 2024 9:10am Advance Directive Response Recorded Date/ Time Living Will Yes April 29, 2024 5:19pm Do you have a Healthcare Power of Outside Solar Sales Consultant? Yes April 29, 2024 5:19pm Name of Medical Power of Outside Solar Sales Consultant RIVERA MOE April 29, 2024 5:19pm Do you have a Healthcare Power of Outside Solar Sales Consultant? Yes August 05, 2024 4:32pm Name of Medical Power of Outside Solar Sales Consultant rivera August 05, 2024 4:32pm Do you have a Healthcare Power of Outside Solar Sales Consultant? Yes August 11, 2024 9:10am Name of Medical Power of Outside Solar Sales Consultant August 11, 2024 9:10am Advance Directive Response Recorded Date/ Time Do you have a Healthcare Power of Outside Solar Sales Consultant? Yes August 05, 2024 4:32pm Name of Medical Power of Outside Solar Sales Consultant rivera August 05, 2024 4:32pm Do you have a Healthcare Power of Outside Solar Sales Consultant? Yes August 11, 2024 9:10am Name of Medical Power of Outside Solar Sales Consultant August 11, 2024 9:10am Chief Complaint and Reason for Visit Chief [...] April 20 12:54pm Subconjunctival hemorrhage April 20, 2 025 12:54pm Syncope April 20, 2024 [...] 1:5 3pm SPINCAL CORD COMPRESSION W MYELOPATHY [facility] 2024 3:15pm SPINCAL CORD COMPRESSION W MYELOPATHY [facility] 2024 7:39pm SPINCAL CORD COMPRESSION W MYELOPATHY [facility] 2024 10:15am Arrhythmia April 30, 2024 5:0 6pm SPINCAL CORD COMPRESSION W MYELOPATHY [facility] 2024 12:34pm SPINCAL CORD COMPRESSION W MYELOPATHY [facility] 2024 12:36pm SPINCAL CORD COMPRESSION W MYELOPATHY [facility] 2024 12:27pm SPINCAL CORD COMPRESSION W MYELOPATHY [facility] 2024 11:03am SPINCAL CORD COMPRESSION W MYELOPATHY [facility] 2024 9:56am SPINCAL CORD COMPRESSION W [...] 27, 2024 3:15pm 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, 2 025 3:15pm Cervical stenosis of spinal canal April 27, 2024 3:15pm Chronic left shoulder pain April 27 2 025 3:15pm Foraminal stenosis of cervical region [facility] 2024 3:15pm GERD with esophagitis April 27, 2024 3 :15pm History of IBS April 27, 2024 3:1 5pm Postural dizziness with near syncope [facility] 2024 3:15pm Urinary hesitancy April 27, 2024 [...] 1:5 3pm SPINCAL CORD COMPRESSION W MYELOPATHY [facility] 2024 3:15pm SPINCAL CORD COMPRESSION W MYELOPATHY [facility] 2024 7:39pm SPINCAL CORD COMPRESSION W MYELOPATHY [facility] 2024 10:15am Arrhythmia April 30, 2024 5:0 6pm SPINCAL CORD COMPRESSION W MYELOPATHY [facility] 2024 12:34pm SPINCAL CORD COMPRESSION W MYELOPATHY [facility] 2024 12:36pm SPINCAL CORD COMPRESSION W MYELOPATHY [facility] 2024 12:27pm SPINCAL CORD COMPRESSION W MYELOPATHY [facility] 2024 11:03am SPINCAL CORD COMPRESSION W MYELOPATHY [facility] 2024 9:56am SPINCAL CORD COMPRESSION W [...] near syncope Mar 2024 3:15pm Urinary hesitancy April 27, 2024 [...] 1:5 3pm SPINCAL CORD COMPRESSION W MYELOPATHY [facility] 2024 3:15pm SPINCAL CORD COMPRESSION W MYELOPATHY [facility] 2024 7:39pm SPINCAL CORD COMPRESSION W MYELOPATHY [facility] 2024 10:15am Arrhythmia April 30, 2024 5:0 6pm SPINCAL CORD COMPRESSION W MYELOPATHY [facility] 2024 12:34pm SPINCAL CORD COMPRESSION W MYELOPATHY [facility] 2024 12:36pm SPINCAL CORD COMPRESSION W MYELOPATHY [facility] 2024 12:27pm SPINCAL CORD COMPRESSION W MYELOPATHY [facility] 2024 11:03am SPINCAL CORD COMPRESSION W MYELOPATHY [facility] 2024 9:56am SPINCAL CORD COMPRESSION W [...] shoulder pain April 27 2 025 3:15pm GERD with esophagitis April 27, 2024 3 :15pm History of IBS April 27, 2024 3:1 5pm Postural dizziness with near syncope Mar 2024 3:15pm Urinary hesitancy April 27, 2024 [...] 1:5 3pm SPINCAL CORD COMPRESSION W MYELOPATHY [facility] 2024 3:15pm SPINCAL CORD COMPRESSION W MYELOPATHY [facility] 2024 7:39pm SPINCAL CORD COMPRESSION W MYELOPATHY [facility] 2024 10:15am Arrhythmia April 30, 2024 5:0 6pm SPINCAL CORD COMPRESSION W MYELOPATHY [facility] 2024 12:34pm SPINCAL CORD COMPRESSION W MYELOPATHY [facility] 2024 12:36pm SPINCAL CORD COMPRESSION W MYELOPATHY [facility] 2024 12:27pm SPINCAL CORD COMPRESSION W MYELOPATHY [facility] 2024 11:03am SPINCAL CORD COMPRESSION W MYELOPATHY [facility] 2024 9:56am SPINCAL CORD COMPRESSION W [...] 1:5 3pm SPINCAL CORD COMPRESSION W MYELOPATHY [facility] 2024 3:15pm SPINCAL CORD COMPRESSION W MYELOPATHY [facility] 2024 7:39pm SPINCAL CORD COMPRESSION W MYELOPATHY [facility] 2024 10:15am Arrhythmia April 30, 2024 5:0 6pm SPINCAL CORD COMPRESSION W MYELOPATHY [facility] 2024 12:34pm SPINCAL CORD COMPRESSION W MYELOPATHY [facility] 2024 12:36pm SPINCAL CORD COMPRESSION W MYELOPATHY [facility] 2024 12:27pm SPINCAL CORD COMPRESSION W MYELOPATHY [facility] 2024 11:03am SPINCAL CORD COMPRESSION W MYELOPATHY [facility] 2024 9:56am SPINCAL CORD COMPRESSION W MYELOPATHY [facility] 2024 10:35am SPINCAL CORD COMPRESSION W MYELOPATHY [facility] 2024 2:26pm LABWORK May 22, 2024 5:0 [...] 1:5 3pm SPINCAL CORD COMPRESSION W MYELOPATHY [facility] 2024 3:15pm SPINCAL CORD COMPRESSION W MYELOPATHY [facility] 2024 7:39pm SPINCAL CORD COMPRESSION W MYELOPATHY [facility] 2024 10:15am Arrhythmia April 30, 2024 5:0 6pm SPINCAL CORD COMPRESSION W MYELOPATHY [facility] 2024 12:34pm SPINCAL CORD COMPRESSION W MYELOPATHY [facility] 2024 12:36pm SPINCAL CORD COMPRESSION W MYELOPATHY [facility] 2024 12:27pm SPINCAL CORD COMPRESSION W MYELOPATHY [facility] 2024 11:03am SPINCAL CORD COMPRESSION W MYELOPATHY [facility] 2024 9:56am SPINCAL CORD COMPRESSION W [...] 1:5 3pm SPINCAL CORD COMPRESSION W MYELOPATHY [facility] 2024 3:15pm SPINCAL CORD COMPRESSION W MYELOPATHY [facility] 2024 7:39pm SPINCAL CORD COMPRESSION W MYELOPATHY [facility] 2024 10:15am Arrhythmia April 30, 2024 5:0 6pm SPINCAL CORD COMPRESSION W MYELOPATHY [facility] 2024 12:34pm SPINCAL CORD COMPRESSION W MYELOPATHY [facility] 2024 12:36pm SPINCAL CORD COMPRESSION W MYELOPATHY [facility] 2024 12:27pm SPINCAL CORD COMPRESSION W MYELOPATHY [facility] 2024 11:03am SPINCAL CORD COMPRESSION W MYELOPATHY [facility] 2024 9:56am SPINCAL CORD COMPRESSION W [...] RM 1 August 03, 2024 3:40 pm Chief Complaint Admit Date Syncope April [...] 1:5 3pm SPINCAL CORD COMPRESSION W MYELOPATHY [facility] 2024 3:15pm SPINCAL CORD COMPRESSION W MYELOPATHY [facility] 2024 7:39pm SPINCAL CORD COMPRESSION W MYELOPATHY [facility] 2024 10:15am Arrhythmia April 30, 2024 5:0 6pm SPINCAL CORD COMPRESSION W MYELOPATHY [facility] 2024 12:34pm SPINCAL CORD COMPRESSION W MYELOPATHY [facility] 2024 12:36pm SPINCAL CORD COMPRESSION W MYELOPATHY [facility] 2024 12:27pm SPINCAL CORD COMPRESSION W MYELOPATHY [facility] 2024 11:03am SPINCAL CORD COMPRESSION W MYELOPATHY [facility] 2024 9:56am SPINCAL CORD COMPRESSION W MYELOPATHY [facility] 2024 10:35am SPINCAL CORD COMPRESSION W MYELOPATHY [facility] 2024 2:26pm LABWORK May 22, 2024 5:0 0am Admission Exam May 22, 2024 6:3 5pm Admission Exam May 23, 2024 2:1 9pm Hospital May 25, 2024 12: 30pm [email or web address] CONSTIPATION,UNSPECIFIED [...] RM 1 August 03, 2024 3:40 pm GENERALIZED WEAKNESS, ORTHOSTATIC POSITI VE August 05, 2024 3:43pm Reason for Visit Admit Date Fall April [...] 3:15pm Chronic left shoulder pain April 27 025 3:15pm GERD with esophagitis April 27, 2024 3 :15pm History of IBS April 27, 2024 3:1 5pm Postural dizziness with near syncope [facility] 2024 3:15pm Urinary hesitancy April 27, 2024 [...] 2024 3:15pm Foraminal stenosis of cervical region [facility] 2024 3:15pm Laryngeal edema April 27, [...] Cervical myelopathy June 01, 2024 3:2 8pm Status post cervical spinal fusion August 03, 2024 3:03pm Cervical myelopathy August 03, 2024 3:03 pm Generalized weakness August 05, 2024 3:4 3pm Orthostatic lightheadedness August 05, 2 025 3:43pm Chief Complaint Admit Date Syncope April 19, [...] 1:5 3pm SPINCAL CORD COMPRESSION W MYELOPATHY [facility] 2024 3:15pm SPINCAL CORD COMPRESSION W MYELOPATHY [facility] 2024 7:39pm SPINCAL CORD COMPRESSION W MYELOPATHY [facility] 2024 10:15am Arrhythmia April 30, 2024 5:0 6pm SPINCAL CORD COMPRESSION W MYELOPATHY [facility] 2024 12:34pm SPINCAL CORD COMPRESSION W MYELOPATHY [facility] 2024 12:36pm SPINCAL CORD COMPRESSION W MYELOPATHY [facility] 2024 12:27pm SPINCAL CORD COMPRESSION W MYELOPATHY [facility] 2024 11:03am SPINCAL CORD COMPRESSION W MYELOPATHY [facility] 2024 9:56am SPINCAL CORD COMPRESSION W [...] RM 1 August 03, 2024 3:40 pm GENERALIZED WEAKNESS, ORTHOSTATIC POSITI VE August 05, 2024 3:43pm GENERALIZED WEAKNESS, ORTHOSTATIC POSITI VE August 06, 2024 1:22pm GENERALIZED WEAKNESS, ORTHOSTATIC POSITI VE August 06, 2024 3:45pm GENERALIZED WEAKNESS, ORTHOSTATIC POSITI VE August 08, 2024 7:55am GENERALIZED WEAKNESS, ORTHOSTATIC POSITI VE August 09, 2024 7:21am Reason for Visit Admit Date Fall April [...] near syncope Mar 2024 3:15pm Urinary hesitancy April 27, 2024 [...] 2024 3:15pm Foraminal stenosis of cervical region [facility] 2024 3:15pm Laryngeal edema April 27, [...] Cervical myelopathy June 01, 2024 3:2 8pm Status post cervical spinal fusion August 03, 2024 3:03pm Cervical myelopathy August 03, 2024 3:03 pm Generalized weakness August 06, 2024 1:2 2pm Orthostatic lightheadedness August 06, 2 025 1:22pm Chief Complaint Admit Date Syncope April 19, [...] 1:5 3pm SPINCAL CORD COMPRESSION W MYELOPATHY [facility] 2024 3:15pm SPINCAL CORD COMPRESSION W MYELOPATHY [facility] 2024 7:39pm SPINCAL CORD COMPRESSION W MYELOPATHY [facility] 2024 10:15am Arrhythmia April 30, 2024 5:0 6pm SPINCAL CORD COMPRESSION W MYELOPATHY [facility] 2024 12:34pm SPINCAL CORD COMPRESSION W MYELOPATHY [facility] 2024 12:36pm SPINCAL CORD COMPRESSION W MYELOPATHY [facility] 2024 12:27pm SPINCAL CORD COMPRESSION W MYELOPATHY [facility] 2024 11:03am SPINCAL CORD COMPRESSION W MYELOPATHY [facility] 2024 9:56am SPINCAL CORD COMPRESSION W [...] RM 1 August 03, 2024 3:40 pm GENERALIZED WEAKNESS, ORTHOSTATIC POSITI VE August 05, 2024 3:43pm GENERALIZED WEAKNESS, ORTHOSTATIC POSITI VE August 06, 2024 1:22pm GENERALIZED WEAKNESS, ORTHOSTATIC POSITI VE August 06, 2024 3:45pm GENERALIZED WEAKNESS, ORTHOSTATIC POSITI VE August 08, 2024 7:55am GENERALIZED WEAKNESS, ORTHOSTATIC POSITI VE August 09, 2024 7:21am GENERALIZED WEAKNESS August 11, 2024 9:02 am Chief Complaint Admit Date SPINCAL CORD COMPRESSION W MYELOPATHY [facility] 2024 3:15pm SPINCAL CORD COMPRESSION W MYELOPATHY Ap [facility] 2024 10:35am SPINCAL CORD COMPRESSION W MYELOPATHY [facility] 2024 2:26pm LABWORK May 22, 2024 5:0 0am Admission Exam May 22, 2024 6:3 5pm Admission Exam May 23, 2024 2:1 9pm Hospital May 25, 2024 12: 30pm [email or web address] CONSTIPATION,UNSPECIFIED May 252024 1:42pm LABWORK May 29, 2024 5:0 0am New Concern May 30, 2024 3:3 8pm CERVICAL SPINE June 01, 2024 3:2 8pm RM 1 June 01, 2024 3:5 4pm LAB WORK June 05, 2024 4:0 0am LABWORK June 12, 2024 5:00am NEW CONCERN June 12, 2024 4:21pm LAB WORK June 19, 2024 5:00a m LAB WORK June 26, 2024 4:00a m LAB WORK July 04, 2024 5:00a m LABWORK July 11, 2024 5:00a m E-ORDER July 20, 2024 4:24 pm CERVICAL SPINE August 03, 2024 3:03 pm RM 1 August 03, 2024 3:40 pm GENERALIZED WEAKNESS, ORTHOSTATIC POSITI VE August 05, 2024 3:43pm GENERALIZED WEAKNESS, ORTHOSTATIC POSITI VE August 06, 2024 1:22pm GENERALIZED WEAKNESS, ORTHOSTATIC POSITI VE August 06, 2024 3:45pm GENERALIZED WEAKNESS, ORTHOSTATIC POSITI VE August 08, 2024 7:55am GENERALIZED WEAKNESS, ORTHOSTATIC POSITI VE August 09, 2024 7:21am GENERALIZED WEAKNESS August 11, 2024 9:02 am LABWORK August 14, 2024 5:00a m Reason for Visit Admit Date BPPV (benign paroxysmal positional verti go) April [...] near syncope Mar 2024 3:15pm Urinary hesitancy April 27, 2024 [...] 2024 3:15pm Foraminal stenosis of cervical region [facility] 2024 3:15pm Laryngeal edema April 27, [...] Cervical myelopathy June 01, 2024 3:2 8pm Status post cervical spinal fusion August 03, 2024 3:03pm Cervical myelopathy August 03, 2024 3:03 pm Generalized weakness August 06, 2024 1:2 2pm Orthostatic lightheadedness August 06, 2 025 1:22pm Chief Complaint Admit Date SPINCAL CORD COMPRESSION W MYELOPATHY [facility] 2024 3:15pm SPINCAL CORD COMPRESSION W MYELOPATHY Ap ril [...] 4:0 0am LABWORK June 12, 2024 5:00am NEW CONCERN June 12, 2024 4:21pm LAB WORK June 19, 2024 5:00a m NEW CONCERN June 21, 2024 3:52p m LAB WORK June 26, 2024 4:00a m LAB WORK July 04, 2024 5:00a m LABWORK July 11, 2024 5:00a m E-ORDER July 20, 2024 4:24 pm CERVICAL SPINE August 03, 2024 3:03 pm RM 1 August 03, 2024 3:40 pm GENERALIZED WEAKNESS, ORTHOSTATIC POSITI VE August 05, 2024 3:43pm GENERALIZED WEAKNESS, ORTHOSTATIC POSITI VE August 06, 2024 1:22pm GENERALIZED WEAKNESS, ORTHOSTATIC POSITI VE August 06, 2024 3:45pm GENERALIZED WEAKNESS, ORTHOSTATIC POSITI VE August 08, 2024 7:55am GENERALIZED WEAKNESS, ORTHOSTATIC POSITI VE August 09, 2024 7:21am GENERALIZED WEAKNESS August 11, 2024 9:02 am LABWORK August 14, 2024 5:00a m Chief Complaint Admit Date [facility] May 25, 2024 12: 30pm [email or web address] CONSTIPATION,UNSPECIFIED May 252024 1:42pm LABWORK May 29, 2024 5:0 0am New Concern May 30, 2024 3:3 8pm CERVICAL SPINE June 01, 2024 3:2 8pm RM 1 June 01, 2024 3:5 4pm LAB WORK June 05, 2024 4:0 0am LABWORK June 12, 2024 5:00am NEW CONCERN June 12, 2024 4:21pm LAB WORK June 19, 2024 5:00a m NEW CONCERN June 21, 2024 3:52p m LAB WORK June 26, 2024 4:00a m LAB WORK July 04, 2024 5:00a m LABWORK July 11, 2024 5:00a m E-ORDER July 20, 2024 4:24 pm CERVICAL SPINE August 03, 2024 3:03 pm RM 1 August 03, 2024 3:40 pm GENERALIZED WEAKNESS, ORTHOSTATIC POSITI VE August 05, 2024 3:43pm GENERALIZED WEAKNESS, ORTHOSTATIC POSITI VE August 06, 2024 1:22pm GENERALIZED WEAKNESS, ORTHOSTATIC POSITI VE August 06, 2024 3:45pm GENERALIZED WEAKNESS, ORTHOSTATIC POSITI VE August 08, 2024 7:55am GENERALIZED WEAKNESS, ORTHOSTATIC POSITI VE August 09, 2024 7:21am GENERALIZED WEAKNESS August 11, 2024 9:02 am LABWORK August 14, 2024 5:00a m Admission Exam H&P August 29, 2024 11:3 6am LAB WORK September 04, 2024 4:00 am Reason for Visit Admit Date Constipation May 25, 2024 12: 30pm Fecal incontinence May 25, 2024 12: 30pm Status post cervical spinal fusion June 01, 2024 3:28pm Cervical myelopathy June 01, 2024 3:2 8pm Status post cervical spinal fusion August 03, 2024 3:03pm Cervical myelopathy August 03, 2024 3:03 pm Generalized weakness August 06, 2024 1:2 2pm Orthostatic lightheadedness August 06 1:22pm Chief Complaint Admit Date Hospital May 25, 2024 12: 30pm [email or web address] CONSTIPATION,UNSPECIFIED May 252024 1:42pm LABWORK May 29, 2024 5:0 0am New Concern May 30, 2024 3:3 8pm CERVICAL SPINE June 01, 2024 3:2 8pm RM 1 June 01, 2024 3:5 4pm LAB WORK June 05, 2024 4:0 0am LABWORK June 12, 2024 5:00am NEW CONCERN June 12, 2024 4:21pm LAB WORK June 19, 2024 5:00a m NEW CONCERN June 21, 2024 3:52p m LAB WORK June 26, 2024 4:00a m LAB WORK July 04, 2024 5:00a m LABWORK July 11, 2024 5:00a m E-ORDER July 20, 2024 4:24 pm CERVICAL SPINE August 03, 2024 3:03 pm RM 1 August 03, 2024 3:40 pm GENERALIZED WEAKNESS, ORTHOSTATIC POSITI VE August 05, 2024 3:43pm GENERALIZED WEAKNESS, ORTHOSTATIC POSITI VE August 06, 2024 1:22pm GENERALIZED WEAKNESS, ORTHOSTATIC POSITI VE August 06, 2024 3:45pm GENERALIZED WEAKNESS, ORTHOSTATIC POSITI VE August 08, 2024 7:55am GENERALIZED WEAKNESS, ORTHOSTATIC POSITI VE August 09, 2024 7:21am GENERALIZED WEAKNESS August 11, 2024 9:02 am LABWORK August 14, 2024 5:00a m New Concern August 14, 2024 5:30p m Admission Exam H&P August 29, 2024 11:3 6am LAB WORK September 04, 2024 4:00 am Additional Source Comments (unrecognized sect ion and content) No Status Records FoundNo Status Records FoundNo Status Records Found INFORMATION SOURCE (unrecogn ized section and content) DATE CREATED AUTHOR 08/04/2017 [facility] ([place]) DATE CREATED AUTHOR AUTHOR'S ORGANIZ ATION 09/23/2024 [facility] DATE CREATED AUTHOR AUTHOR'S ORGANIZ ATION 10/08/2024 [facility] Care Teams (unrecognized sec tion and content) [...] Active Start: April 21, 2024 Dr. Ciro Dieog MD Other Provider Active Star t: April 21, 2024 Dr. Harish Baxter MD Referring Provider Active Start: April 21, 2024 Team Status: Active Member Role Status Dates Dr. Kwabena Menjivar MD Primary Care Provider Acti ve Start: April 22, 2024 Dr. Laureano Gallagher DO Emergency Provider Active Start: April 22, 2024 Dr. Keanu Alfrde DO Admit Provider Active Star t: April [...] rt: April 25, 2024 Ana Rosa Howard YIELD ENGINEER, YIELD ENGINEER-C Attending Provider Active Start: April 25, [...] Provider Active Start: April 27, 2024 Dr. Harihs Baxter MD Other Provider Active Sta rt: [...] Acti ve Start: May 05, 2024 Dr. Felicia Sementi , DO Admit Provider Active Start: May 05, 2024 Dr. Corazon Wright , DO Attending Provider Act deborah Start: May 05, 2024 Dr. Corazon Wright , DO Other Provider Active Start: May 05, 2024 Team Status: Active Member Role Status Dates Dr. Kwabena Menjivar MD Primary Care Provider Acti ve Start: May 08, 2024 Dr. Corazon Wright , Admit Provider Active Start: May 08, 2024 Dr. Corazon Wright , DO Attending Provider Act deborah Start: May 08, 2024 Dr. Corazon Wright , DO Other Provider Active Start: May 08, 2024 Team Status: Active Member Role Status Dates Dr. Kwabena Menjivar MD Primary Care Provider Acti ve Start: May 09, 2024 Dr. Corazon Wright DO Admit Provider Active Start: May 09, 2024 Dr. Corazon Wright , DO Attending Provider Act deborah Start: May 09, 2024 Dr. Corazon Wright , Other Provider Active Start: May 09, 2024 Team Status: Active Member Role Status Dates Dr. Kwabena Menjivar MD Primary Care Provider Acti ve Start: May 11, 2024 Dr. Corazon Wright DO Admit Provider Active Start: May 11, 2024 [...] End: May 22, 2024 Angelika Nowak NP YIELD ENGINEER-C Attending Provider Active Start: May 22, 2024 [...] 2024 End: May 30, 2024 Angelika Nowak YIELD ENGINEER, YIELD ENGINEER-C Attending Provider Active Start: May 30, 2024 [...] 2024 End: August 03, 2024 Team Status: Active Member Role/Relationship Status Dates Dr. Kwabena Menjivar MD Primary Care Provider Acti ve Team Status: Active Member Role/Relationship Status Dates Dr. Kwabena Menjivar MD Primary [...] April 19, 2024 Team Status: Active Member Role/Relationship Status Dates Dr. Kwabena Menjivar MD Primary [...] April 19, 2024 Team Status: Active Member Role/Relationship Status Dates Dr. Kwabena Menjivar MD Primary Care Provider Acti ve Start: April 19, 2024 Dr. Danette Sargent MD Attending Provider Activ e Start: April 19, 2024 Team Status: Active Member Role/Relationship Status Dates Dr. Kwabena Menjivar MD Primary [...] April 20, 2024 Team Status: Inactive Member Role/Relationship Status Dates Dr. Kwabena Menjivar MD Primary [...] April 27, 2024 Team Status: Active Member Role/Relationship Status Dates Dr. Kwabena Menjivar MD Primary [...] April 21, 2024 Team Status: Active Member Role/Relationship Status Dates Dr. Kwabena Menjivar MD Primary [...] April 21, 2024 Team Status: Active Member Role/Relationship Status Dates Dr. Kwabena Menjivar MD Primary [...] April 22, 2024 Team Status: Active Member Role/Relationship Status Dates Dr. Kwabena Menjivar MD Primary [...] April 23, 2024 Team Status: Active Member Role/Relationship Status Dates Dr. Kwabena Menjivar MD Primary Care Provider Acti ve Start: April 24, 2024 End: April 24, 2024 Dr. David Granados MD Attending Provider Active S tart: April 24, 2024 End: April 24, 2024 Dr. David Granados MD Referring Provider Active S tart: April 24, 2024 End: April 24, 2024 Team Status: Active Member Role/Relationship Status Dates Dr. Kwabena Menjivar MD Primary [...] April 24, 2024 Team Status: Active Member Role/Relationship Status Dates Dr. Kwabena Menjivar MD Primary [...] April 25, 2024 Team Status: Active Member Role/Relationship Status Dates Dr. Kwabena Menjivar MD Primary [...] rt: April 25, 2024 Ana Rosa Howard YIELD ENGINEER, YIELD ENGINEER-C Attending Provider Active Start: April 25, 2024 Team Status: Active Member Role/Relationship Status Dates Dr. Kwabena Menjivar MD Primary [...] April 25, 2024 Team Status: Active Member Role/Relationship Status Dates Dr. Kwabena Menjivar MD Primary [...] April 26, 2024 Team Status: Active Member Role/Relationship Status Dates Dr. Kwabena Menjivar MD Primary [...] April 26, 2024 Team Status: Active Member Role/Relationship Status Dates Dr. Kwabena Menjivar MD Primary [...] April 27, 2024 Team Status: Inactive Member Role/Relationship Status Dates Dr. Kwabena Menjivar MD Primary [...] May 20, 2024 Team Status: Active Member Role/Relationship Status Dates Dr. Kwabena Menjivar MD Primary Care Provider Acti ve Start: April 27, 2024 Dr. Corazon Wright DO Admit Provider Active Start: April 27, 2024 Dr. Corazon Wright DO Referring Provider Act deborah Start: April 27, 2024 Dr. Corazon Wright DO Other Provider Active Start: April 27, 2024 YADY Hyman Attending Provider Active Star t: April 27, 2024 Team Status: Active Member Role/Relationship Status Dates Dr. Kwabena Menjivar MD Primary Care Provider Acti ve Start: April 28, 2024 Dr. Corazon Wright DO Admit Provider Active Start: April 28, 2024 Dr. Corazon Wright DO Attending Provider Act deborah Start: April 28, 2024 Dr. Corazon Wright DO Other Provider Active Start: April 28, 2024 Team Status: Active Member Role/Relationship Status Dates Dr. Kwabena Menjivar MD Primary Care Provider Acti ve Start: April 30, 2024 End: April 30, 2024 Dr. David Granados MD Attending Provider Active S tart: April 30, 2024 End: April 30, 2024 Dr. Corazon Wright DO Referring Provider Act deborah Start: April 30, 2024 End: April 30, 2024 Team Status: Active Member Role/Relationship Status Dates Dr. Kwabena Menjivar MD Primary Care Provider Acti ve Start: May 01, 2024 Dr. Corazon Wright DO Admit Provider Active Start: May 01, 2024 Dr. Corazon Wright DO Attending Provider Act deborah Start: May 01, 2024 Dr. Corazon Wright , DO Other Provider Active Start: May 01, 2024 Team Status: Active Member Role/Relationship Status Dates Dr. Kwabena Menjivar MD Primary Care Provider Acti ve Start: May 02, 2024 Dr. Corazon Wright , DO Admit Provider Active Start: May 02, 2024 Dr. Corazon Wright , DO Attending Provider Act deborah Start: May 02, 2024 Dr. Corazon Wright , DO Other Provider Active Start: May 02, 2024 Team Status: Active Member Role/Relationship Status Dates Dr. Kwabena Menjivar MD Primary Care Provider Acti ve Start: May 03, 2024 Dr. Corazon Wright , Admit Provider Active Start: May 03, 2024 Dr. Corazon Wright , DO Attending Provider Act deborah Start: May 03, 2024 Dr. Corazon Wright , Other Provider Active Start: May 03, 2024 Team Status: Active Member Role/Relationship Status Dates Dr. Kwabena Menjivar MD Primary Care Provider Acti ve Start: May 05, 2024 Dr. Corazon Wright , DO Admit Provider Active Start: May 05, 2024 Dr. Corazon Wright , DO Attending Provider Act deborah Start: May 05, 2024 Dr. Corazon Wright DO Other Provider Active Start: May 05, 2024 Team Status: Active Member Role/Relationship Status Dates Dr. Kwabena Menjivar MD Primary Care Provider Acti ve Start: May 08, 2024 Dr. Corazon Wright , DO Admit Provider Active Start: May 08, 2024 Dr. Corazon Wright , DO Attending Provider Act deborah Start: May 08, 2024 Dr. Corazon Wright , DO Other Provider Active Start: May 08, 2024 Team Status: Active Member Role/Relationship Status Dates Dr. Kwabena Menjivar MD Primary Care Provider Acti ve Start: May 09, 2024 Dr. Corazon Wright DO Admit Provider Active Start: May 09, 2024 Dr. Corazon Wright , DO Attending Provider Act deborah Start: May 09, 2024 Dr. Corazon Wright DO Other Provider Active Start: May 09, 2024 Team Status: Active Member Role/Relationship Status Dates Dr. Kwabena Menjivar MD Primary Care Provider Acti ve Start: May 11, 2024 Dr. Corazon Wright DO Admit Provider Active Start: May 11, 2024 Dr. Corazon Wright DO Referring Provider Act deborah Start: May 11, 2024 Dr. Corazon Wright DO Other Provider Active Start: May 11, 2024 Dr. Ciro Diego MD Attending Provider Active Start: May 11, 2024 Team Status: Active Member Role/Relationship Status Dates Dr. Kwabena Menjivar MD Primary Care Provider Acti ve Start: May 22, 2024 Keven KIRKPATRICK MD Attending Provider Active Start: May 22, 2024 Team Status: Inactive Member Role/Relationship Status Dates Dr. Kwabena Menjivar MD Primary Care Provider Acti ve Start: May 22, 2024 End: May 22, 2024 Angelika Nowak NP YIELD ENGINEER-C Attending Provider Active Start: May 22, 2024 End: May 22, 2024 Team Status: Inactive Member Role/Relationship Status Dates Dr. Kwabena Menjivar MD Primary Care Provider Acti ve Start: May 23, 2024 End: May 23, 2024 Dr. Keven Etienne MD Attending Provider Active Start: May 23, 2024 End: May 23, 2024 Team Status: Inactive Member Role/Relationship Status Dates Dr. Kwabena Menjivar MD Primary Care Provider Acti ve Start: May 25, 2024 End: May 25, 2024 Dr. Kwabena Menjivar MD Referring Provider Active Start: May 25, 2024 End: May 25, 2024 RUSS HiltonC Attending Provider Active Start: May 25, 2024 End: May 25, 2024 Team Status: Active Member Role/Relationship Status Dates Dr. Kwabena Menjivar MD Primary Care Provider Acti ve Start: May 25, 2024 Sonia Isbell NP-C Attending Provider Active Start: May 25, 2024 RUSS HiltonC Referring Provider Active Start: May 25, 2024 Team Status: Active Member Role/Relationship Status Dates Dr. Kwabena Menjivar MD Primary Care Provider Acti ve Start: May 29, 2024 Keven KIRKPATRICK MD Attending Provider Active Start: May 29, 2024 Team Status: Inactive Member Role/Relationship Status Dates Dr. Kwabena Menjivar MD Primary Care Provider Acti ve Start: May 30, 2024 End: May 30, 2024 Angelika Nowak YIELD ENGINEER, YIELD ENGINEER-C Attending Provider Active Start: May 30, 2024 End: May 30, 2024 Team Status: Inactive Member Role/Relationship Status Dates Dr. Kwabena Menjivar MD Primary Care Provider Acti ve Start: June 01, 2024 End: June 01, 2024 Dr. Kwabena Menjivar MD Referring Provider Active Start: June 01, 2024 End: June 01, 2024 Dr. Ciro Diego MD Attending Provider Active Start: June 01, 2024 End: June 01, 2024 Team Status: Inactive Member Role/Relationship Status Dates Dr. Kwabena Menjivar MD Primary Care Provider Acti ve Start: June 01, 2024 End: June 01, 2024 Dr. David Granados MD Attending Provider Active S tart: June 01, 2024 End: June 01, 2024 Team Status: Active Member Role/Relationship Status Dates Dr. Kwabena Menjivar MD Primary Care Provider Acti ve Start: June 05, 2024 Keven KIRKPATRICK MD Attending Provider Active Start: June 05, 2024 Keven KIRKPATRICK MD Referring Provider Active Start: June 05, 2024 Team Status: Active Member Role/Relationship Status Dates Dr. Kwabena Menjivar MD Primary Care Provider Acti ve Start: June 12, 2024 Keven KIRKPATRICK MD Attending Provider Active Start: June 12, 2024 Team Status: Active Member Role/Relationship Status Dates Dr. Kwabena Menjivar MD Primary Care Provider Acti ve Start: June 19, 2024 Keven KIRKPATRICK MD Attending Provider Active Start: June 19, 2024 Team Status: Active Member Role/Relationship Status Dates Dr. Kwabena Menjivar MD Primary Care Provider Acti ve Start: June 26, 2024 Keven KIRKPATRICK MD Attending Provider Active Start: June 26, 2024 Keven KIRKPATRICK MD Referring Provider Active Start: June 26, 2024 Team Status: Active Member Role/Relationship Status Dates Dr. Kwabena Menjivar MD Primary Care Provider Acti ve Start: July 04, 2024 Keven KIRKPATRICK MD Attending Provider Active Start: July 04, 2024 Team Status: Active Member Role/Relationship Status Dates Dr. Kwabena Menjivar MD Primary Care Provider Acti ve Start: July 11, 2024 Keven KIRKPATRICK MD Attending Provider Active Start: July 11, 2024 Team Status: Inactive Member Role/Relationship Status Dates Dr. Kwabena Menjivar MD Primary Care Provider Acti ve Start: July 20, 2024 End: July 20, 2024 Dr. Kwabena Menjivar MD Attending Provider Active Start: July 20, 2024 End: July 20, 2024 Dr. Kwabena Menjivar MD Referring Provider Active Start: July 20, 2024 End: July 20, 2024 Team Status: Inactive Member Role/Relationship Status Dates Dr. Kwabena Menjivar MD Primary Care Provider Acti ve Start: August 03, 2024 End: August 03, 2024 Dr. Kwabena Menjivar MD Referring Provider Active Start: August 03, 2024 End: August 03, 2024 Dr. Ciro Diego MD Attending Provider Active Start: August 03, 2024 End: August 03, 2024 Team Status: Inactive Member Role/Relationship Status Dates Dr. Kwabena Menjivar MD Primary Care Provider Acti ve Start: August 03, 2024 End: August 03, 2024 Dr. David Granados MD Attending Provider Active S tart: August 03, 2024 End: August 03, 2024 Team Status: Active Member Role/Relationship Status Dates Dr. Kwabena Menjivar MD Primary Care Provider Acti ve Start: August 05, 2024 Dr. Kayode Woods DO Emergency Provider Active Start: August 05, 2024 Dr. Yu Bradley MD Admit Provider Active Star t: August 05, 2024 Dr. Yu Bradley MD Attending Provider Active Start: August 05, 2024 Dr. Yu Bradley MD Other Provider Active Star t: August 05, 2024 Team Status: Inactive Member Role/Relationship Status Dates Dr. Kwabena Menjivar MD Primary Care Provider Acti ve Start: August 06, 2024 End: August 09, 2024 Dr. Kayode Woods DO Emergency Provider Active Start: August 06, 2024 End: August 09, 2024 Dr. Yu Bradley MD Admit Provider Active Star t: August 06, 2024 End: August 09, 2024 Dr. Yu Bradley MD Other Provider Active Star t: August 06, 2024 End: August 09, 2024 Dr. Jacoby Mendoza MD Attending Provider Active Start: August 06, 2024 End: August 09, 2024 Dr. Keanu Collier DO Other Provider Active S tart: August 06, 2024 End: August 09, 2024 Team Status: Active Member Role/Relationship Status Dates Dr. Kwabena Menjivar MD Primary Care Provider Acti ve Start: August 06, 2024 Dr. Kayode Woods DO Emergency Provider Active Start: August 06, 2024 Dr. Yu Bradley MD Admit Provider Active Star t: August 06, 2024 Dr. Yu Bradley MD Other Provider Active Star t: August 06, 2024 Dr. Keanu Collier DO Attending Provider Active Start: August 06, 2024 Dr. Keanu Collier DO Other Provider Active S tart: August 06, 2024 Team Status: Active Member Role/Relationship Status Dates Dr. Kwabena Menjivar MD Primary Care Provider Acti ve Start: August 08, 2024 Dr. Kayode Woods DO Emergency Provider Active Start: August 08, 2024 Dr. Yu Bradley MD Admit Provider Active Star t: August 08, 2024 Dr. Yu Bradley MD Other Provider Active Star t: August 08, 2024 Dr. Jacoby Mendoza MD Attending Provider Active Start: August 08, 2024 Dr. Jacoby Mendoza MD Other Provider Active Star t: August 08, 2024 Dr. Keanu Collier DO Other Provider Active S tart: August 08, 2024 Team Status: Active Member Role/Relationship Status Dates Dr. Kwabena Menjivar MD Primary Care Provider Acti ve Start: August 09, 2024 Dr. Kayode Woods DO Emergency Provider Active Start: August 09, 2024 Dr. Yu Bardley MD Admit Provider Active Star t: August 09, 2024 Dr. Yu Bradley MD Other Provider Active Star t: August 09, 2024 Dr. Jacoby Mendoza MD Attending Provider Active Start: August 09, 2024 Dr. Jacoby Mendoza MD Other Provider Active Star t: August 09, 2024 Dr. Keanu Collier DO Other Provider Active S tart: August 09, 2024 Team Status: Inactive Member Role/Relationship Status Dates Dr. Kwabena Menjivar MD Primary Care Provider Acti ve Start: August 11, 2024 End: August 11, 2024 Dr. Keanu Zurita DO Emergency Provider Active Start: August 11, 2024 End: August 11, 2024 Team Status: Inactive Member Role/Relationship Status Dates Dr. Kwabena Menjivar MD Primary [...] May 20, 2024 Team Status: Active Member Role/Relationship Status Dates Dr. Kwabena Menjivar MD Primary Care Provider Acti ve Start: May 09, 2024 Dr. Corazon Wright DO Admit Provider Active Start: May 09, 2024 Dr. Corazon Wright DO Attending Provider Act deborah Start: May 09, 2024 Dr. Corazon Wright DO Other Provider Active Start: May 09, 2024 Team Status: Active Member Role/Relationship Status Dates Dr. Kwabena Menjivar MD Primary Care Provider Acti ve Start: May 11, 2024 Dr. Corazon Wright DO Admit Provider Active Start: May 11, 2024 Dr. Corazon Wright DO Referring Provider Act deborah Start: May 11, 2024 Dr. Corazon Wright DO Other Provider Active Start: May 11, 2024 Dr. Ciro Diego MD Attending Provider Active Start: May 11, 2024 Team Status: Active Member Role/Relationship Status Dates Dr. Kwabena Menjivar MD Primary Care Provider Acti ve Start: May 22, 2024 Keven KIRKPATRICK MD Attending Provider Active Start: May 22, 2024 Team Status: Inactive Member Role/Relationship Status Dates Dr. Kwabena Menjivar MD Primary Care Provider Acti ve Start: May 22, 2024 End: May 22, 2024 Angelika Nowak YIELD ENGINEER, YIELD ENGINEER-C Attending Provider Active Start: May 22, 2024 End: May 22, 2024 Team Status: Inactive Member Role/Relationship Status Dates Dr. Kwabena Menjivar MD Primary Care Provider Acti ve Start: May 23, 2024 End: May 23, 2024 Dr. Keven Etienne MD Attending Provider Active Start: May 23, 2024 End: May 23, 2024 Team Status: Inactive Member Role/Relationship Status Dates Dr. Kwabena Menjivar MD Primary Care Provider Acti ve Start: May 25, 2024 End: May 25, 2024 Dr. Kwabena Menjivar MD Referring Provider Active Start: May 25, 2024 End: May 25, 2024 Sonia Isbell NP-C Attending Provider Active Start: May 25, 2024 End: May 25, 2024 Team Status: Active Member Role/Relationship Status Dates Dr. Kwabena Menjivar MD Primary Care Provider Acti ve Start: May 25, 2024 Sonia Isbell YIELD ENGINEER-C Attending Provider Active Start: May 25, 2024 Sonia Isbell NP-C Referring Provider Active Start: May 25, 2024 Team Status: Active Member Role/Relationship Status Dates Dr. Kwabena Menjivar MD Primary Care Provider Acti ve Start: May 29, 2024 Keven KIRKPATRICK MD Attending Provider Active Start: May 29, 2024 Team Status: Inactive Member Role/Relationship Status Dates Dr. Kwabena Menjivar MD Primary Care Provider Acti ve Start: May 30, 2024 End: May 30, 2024 Angelika Nowak YIELD ENGINEER, YIELD ENGINEER-C Attending Provider Active Start: May 30, 2024 End: May 30, 2024 Team Status: Inactive Member Role/Relationship Status Dates Dr. Kwabena Menjivar MD Primary Care Provider Acti ve Start: June 01, 2024 End: June 01, 2024 Dr. Kwabena Menjivar MD Referring Provider Active Start: June 01, 2024 End: June 01, 2024 Dr. Ciro Diego MD Attending Provider Active Start: June 01, 2024 End: June 01, 2024 Team Status: Inactive Member Role/Relationship Status Dates Dr. Kwabena Menjivar MD Primary Care Provider Acti ve Start: June 01, 2024 End: June 01, 2024 Dr. David Granados MD Attending Provider Active S tart: June 01, 2024 End: June 01, 2024 Team Status: Active Member Role/Relationship Status Dates Dr. Kwabena Menjivar MD Primary Care Provider Acti ve Start: June 05, 2024 Keven KIRKPATRICK MD Attending Provider Active Start: June 05, 2024 Keven KIRKPATRICK MD Referring Provider Active Start: June 05, 2024 Team Status: Active Member Role/Relationship Status Dates Dr. Kwabena Menjivar MD Primary Care Provider Acti ve Start: June 12, 2024 Keven KIRKPATRICK MD Attending Provider Active Start: June 12, 2024 Team Status: Inactive Member Role/Relationship Status Dates Dr. Kwabena Menjivar MD Primary Care Provider Acti ve Start: June 12, 2024 End: June 12, 2024 Angelika Nowak YIELD ENGINEER, YIELD ENGINEER-C Attending Provider Active Start: June 12, 2024 End: June 12, 2024 Team Status: Active Member Role/Relationship Status Dates Dr. Kwabena Menjivar MD Primary Care Provider Acti ve Start: June 19, 2024 Keven KIRKPATRICK MD Attending Provider Active Start: June 19, 2024 Team Status: Active Member Role/Relationship Status Dates Dr. Kwabena Menjivar MD Primary Care Provider Acti ve Start: June 26, 2024 Keven KIRKPATRICK MD Attending Provider Active Start: June 26, 2024 Keven KIRKPATRICK MD Referring Provider Active Start: June 26, 2024 Team Status: Active Member Role/Relationship Status Dates Dr. Kwabena Menjivar MD Primary Care Provider Acti ve Start: July 04, 2024 Keven KIRKPATRICK MD Attending Provider Active Start: July 04, 2024 Team Status: Active Member Role/Relationship Status Dates Dr. Kwabena Menjivar MD Primary Care Provider Acti ve Start: July 11, 2024 Keven KIRKPATRICK MD Attending Provider Active Start: July 11, 2024 Team Status: Inactive Member Role/Relationship Status Dates Dr. Kwabena Menjivar MD Primary Care Provider Acti ve Start: July 20, 2024 End: July 20, 2024 Dr. Kwabena Mejnivar MD Attending Provider Active Start: July 20, 2024 End: July 20, 2024 Dr. Kwabena Menjivar MD Referring Provider Active Start: July 20, 2024 End: July 20, 2024 Team Status: Inactive Member Role/Relationship Status Dates Dr. Kwabena Menjivar MD Primary Care Provider Acti ve Start: August 03, 2024 End: August 03, 2024 Dr. Kwabena Menjivar MD Referring Provider Active Start: August 03, 2024 End: August 03, 2024 Dr. Ciro Diego MD Attending Provider Active Start: August 03, 2024 End: August 03, 2024 Team Status: Inactive Member Role/Relationship Status Dates Dr. Kwabena Menjivar MD Primary Care Provider Acti ve Start: August 03, 2024 End: August 03, 2024 Dr. David Granados MD Attending Provider Active S tart: August 03, 2024 End: August 03, 2024 Team Status: Active Member Role/Relationship Status Dates Dr. Kwabena Menjivar MD Primary Care Provider Acti ve Start: August 05, 2024 Dr. Kayode Woods DO Emergency Provider Active Start: August 05, 2024 Dr. Yu Bradley MD Admit Provider Active Star t: August 05, 2024 Dr. Yu Bradley MD Attending Provider Active Start: August 05, 2024 Dr. Yu Bradley MD Other Provider Active Star t: August 05, 2024 Team Status: Inactive Member Role/Relationship Status Dates Dr. Kwabena Menjivar MD Primary Care Provider Acti ve Start: August 06, 2024 End: August 09, 2024 Dr. Kayode Woods DO Emergency Provider Active Start: August 06, 2024 End: August 09, 2024 Dr. Yu Bradley MD Admit Provider Active Star t: August 06, 2024 End: August 09, 2024 Dr. Yu Bradley MD Other Provider Active Star t: August 06, 2024 End: August 09, 2024 Dr. Jacoby Mendoza MD Attending Provider Active Start: August 06, 2024 End: August 09, 2024 Dr. Keanu Collier DO Other Provider Active S tart: August 06, 2024 End: August 09, 2024 Team Status: Active Member Role/Relationship Status Dates Dr. Kwabena Menjivar MD Primary Care Provider Acti ve Start: August 06, 2024 Dr. Kayode Woods DO Emergency Provider Active Start: August 06, 2024 Dr. Yu Bradley MD Admit Provider Active Star t: August 06, 2024 Dr. Yu Bradley MD Other Provider Active Star t: August 06, 2024 Dr. Keanu Collier DO Attending Provider Active Start: August 06, 2024 Dr. Keanu Collier DO Other Provider Active S tart: August 06, 2024 Team Status: Active Member Role/Relationship Status Dates Dr. Kwabena Menjivar MD Primary Care Provider Acti ve Start: August 08, 2024 Dr. Kayode Woods DO Emergency Provider Active Start: August 08, 2024 Dr. Yu Bradley MD Admit Provider Active Star t: August 08, 2024 Dr. Yu Bradley MD Other Provider Active Star t: August 08, 2024 Dr. Jacoby Mendoza MD Attending Provider Active Start: August 08, 2024 Dr. Jacoby Mendoza MD Other Provider Active Star t: August 08, 2024 Dr. Keanu Collier DO Other Provider Active S tart: August 08, 2024 Team Status: Active Member Role/Relationship Status Dates Dr. Kwabena Menjivar MD Primary Care Provider Acti ve Start: August 09, 2024 Dr. Kayode Woods DO Emergency Provider Active Start: August 09, 2024 Dr. Yu Bradley MD Admit Provider Active Star t: August 09, 2024 Dr. Yu Bradley MD Other Provider Active Star t: August 09, 2024 Dr. Jacoby Mendoza MD Attending Provider Active Start: August 09, 2024 Dr. Jacoby Mendoza MD Other Provider Active Star t: August 09, 2024 Dr. Keanu Collier DO Other Provider Active S tart: August 09, 2024 Team Status: Inactive Member Role/Relationship Status Dates Dr. Kwabena Menjivar MD Primary Care Provider Acti ve Start: August 11, 2024 End: August 11, 2024 Dr. Keanu Zurita DO Attending Provider Active Start: August 11, 2024 End: August 11, 2024 Dr. Keanu Zurita DO Emergency Provider Active Start: August 11, 2024 End: August 11, 2024 Team Status: Active Member Role/Relationship Status Dates Dr. Kwabena Menjivar MD Primary Care Provider Acti ve Start: August 14, 2024 Keven KIRKPATRICK MD Attending Provider Active Start: August 14, 2024 Team Status: Active Member Role/Relationship Status Dates Dr. Kwabena Menjivar MD Primary Care Provider Acti ve Start: September 04, 2024 Keven KIRKPATRICK MD Attending Provider Active Start: September 04, 2024 Team Status: Inactive Member Role/Relationship Status Dates Dr. Kwabena Menjivar MD Primary Care Provider Acti ve Start: June 21, 2024 End: June 21, 2024 Angelika [place] YIELD ENGINEER, YIELD ENGINEER-C Attending Provider Active Start: June 21, 2024 End: June 21, 2024 Team Status: Active Member Role/Relationship Status Dates Dr. Kwabena Menjivar MD Primary Care Provider Acti ve Start: June 26, 2024 Keven KIRKPATRICK MD Attending Provider Active Start: June 26, 2024 Keven KIRKPATRICK MD Referring Provider Active Start: June 26, 2024 Team Status: Active Member Role/Relationship Status Dates Dr. Kwabena Menjivar MD Primary Care Provider Acti ve Start: July 04, 2024 Keven KIRKPATRICK MD Attending Provider Active Start: July 04, 2024 Team Status: Active Member Role/Relationship Status Dates Dr. Kwabena Menjivar MD Primary Care Provider Acti ve Start: July 11, 2024 Keven KIRKPATRICK MD Attending Provider Active Start: July 11, 2024 Team Status: Inactive Member Role/Relationship Status Dates Dr. Kwabena Menjivar MD Primary Care Provider Acti ve Start: July 20, 2024 End: July 20, 2024 Dr. Kwabena Menjivar MD Attending Provider Active Start: July 20, 2024 End: July 20, 2024 Dr. Kwabena Menjivar MD Referring Provider Active Start: July 20, 2024 End: July 20, 2024 Team Status: Inactive Member Role/Relationship Status Dates Dr. Kwabena Menjivar MD Primary Care Provider Acti ve Start: August 03, 2024 End: August 03, 2024 Dr. Kwabena Menjivar MD Referring Provider Active Start: August 03, 2024 End: August 03, 2024 Dr. Ciro Diego MD Attending Provider Active Start: August 03, 2024 End: August 03, 2024 Team Status: Inactive Member Role/Relationship Status Dates Dr. Kwabena Menjivar MD Primary Care Provider Acti ve Start: August 03, 2024 End: August 03, 2024 Dr. David Granados MD Attending Provider Active S tart: August 03, 2024 End: August 03, 2024 Team Status: Active Member Role/Relationship Status Dates Dr. Kwabena Menjivar MD Primary Care Provider Acti ve Start: August 05, 2024 Dr. Kayode Woods DO Emergency Provider Active Start: August 05, 2024 Dr. Yu Bradley MD Admit Provider Active Star t: August 05, 2024 Dr. Yu Bradley MD Attending Provider Active Start: August 05, 2024 Dr. Yu Bradley MD Other Provider Active Star t: August 05, 2024 Team Status: Inactive Member Role/Relationship Status Dates Dr. Kwabena Menjivar MD Primary Care Provider Acti ve Start: August 06, 2024 End: August 09, 2024 Dr. Kayode Woods DO Emergency Provider Active Start: August 06, 2024 End: August 09, 2024 Dr. Yu Bradley MD Admit Provider Active Star t: August 06, 2024 End: August 09, 2024 Dr. Yu Bradley MD Other Provider Active Star t: August 06, 2024 End: August 09, 2024 Dr. Jacoby Mendoza MD Attending Provider Active Start: August 06, 2024 End: August 09, 2024 Dr. Keanu Collier DO Other Provider Active S tart: August 06, 2024 End: August 09, 2024 Team Status: Active Member Role/Relationship Status Dates Dr. Kwabena Menjivar MD Primary Care Provider Acti ve Start: August 06, 2024 Dr. Kayode Woods , Emergency Provider Active Start: August 06, 2024 Dr. Yu Bradley MD Admit Provider Active Star t: August 06, 2024 Dr. Yu Bradley MD Other Provider Active Star t: August 06, 2024 Dr. Keanu Collier DO Attending Provider Active Start: August 06, 2024 Dr. Keanu Collier DO Other Provider Active S tart: August 06, 2024 Team Status: Active Member Role/Relationship Status Dates Dr. Kwabena Menjivar MD Primary Care Provider Acti ve Start: August 08, 2024 Dr. Kayode Woods , Emergency Provider Active Start: August 08, 2024 Dr. Yu Bradley MD Admit Provider Active Star t: August 08, 2024 Dr. Yu Bradley MD Other Provider Active Star t: August 08, 2024 Dr. Jacoby Mendoza MD Attending Provider Active Start: August 08, 2024 Dr. Jacoby Mendoza MD Other Provider Active Star t: August 08, 2024 Dr. Keanu Collier DO Other Provider Active S tart: August 08, 2024 Team Status: Active Member Role/Relationship Status Dates Dr. Kwabena Menjivar MD Primary Care Provider Acti ve Start: August 09, 2024 Dr. Kayode Woods DO Emergency Provider Active Start: August 09, 2024 Dr. Yu Bradley MD Admit Provider Active Star t: August 09, 2024 Dr. Yu Bradley MD Other Provider Active Star t: August 09, 2024 Dr. Jacoby Mendoza MD Attending Provider Active Start: August 09, 2024 Dr. Jacoby Mendoza MD Other Provider Active Star t: August 09, 2024 Dr. Keanu Collier DO Other Provider Active S tart: August 09, 2024 Team Status: Inactive Member Role/Relationship Status Dates Dr. Kwabena Menjivar MD Primary Care Provider Acti ve Start: August 11, 2024 End: August 11, 2024 Dr. Keanu Zurita , Attending Provider Active Start: August 11, 2024 End: August 11, 2024 Dr. Keanu Schwiger , DO Emergency Provider Active Start: August 11, 2024 End: August 11, 2024 Team Status: Active Member Role/Relationship Status Dates Dr. Kwabena Menjivar MD Primary Care Provider Acti ve Start: August 14, 2024 Keven KIRKPATRICK MD Attending Provider Active Start: August 14, 2024 Team Status: Active Member Role/Relationship Status Dates Dr. Kwabena Menjivar MD Primary Care Provider Acti ve Start: September 04, 2024 Keven KIRKPATRICK MD Attending Provider Active Start: September 04, 2024 Team Status: Inactive Member Role/Relationship Status Dates Dr. Kwabena Menjivar MD Primary Care Provider Acti ve Start: May 25, 2024 End: May 25, 2024 Dr. Kwabena Menjivar MD Referring Provider Active Start: May 25, 2024 End: May 25, 2024 Sonia Isbell NP-C Attending Provider Active Start: May 25, 2024 End: May 25, 2024 Team Status: Active Member Role/Relationship Status Dates Dr. Kwabena Menjivar MD Primary Care Provider Acti ve Start: May 25, 2024 Sonia Isbell NP-C Attending Provider Active Start: May 25, 2024 Sonia Isbell NP-C Referring Provider Active Start: May 25, 2024 Team Status: Active Member Role/Relationship Status Dates Dr. Kwabena Menjivar MD Primary Care Provider Acti ve Start: May 29, 2024 Keven KIRKPATRICK MD Attending Provider Active Start: May 29, 2024 Team Status: Inactive Member Role/Relationship Status Dates Dr. Kwabena Menjivar MD Primary Care Provider Acti ve Start: May 30, 2024 End: May 30, 2024 Angelika Nowak NP, YIELD ENGINEER-C Attending Provider Active Start: May 30, 2024 End: May 30, 2024 Team Status: Inactive Member Role/Relationship Status Dates Dr. Kwabena Menjivar MD Primary Care Provider Acti ve Start: June 01, 2024 End: June 01, 2024 Dr. Kwabena Menjivar MD Referring Provider Active Start: June 01, 2024 End: June 01, 2024 Dr. Ciro Diego MD Attending Provider Active Start: June 01, 2024 End: June 01, 2024 Team Status: Inactive Member Role/Relationship Status Dates Dr. Kwabena Menjivar MD Primary Care Provider Acti ve Start: June 01, 2024 End: June 01, 2024 Dr. David Granados MD Attending Provider Active S tart: June 01, 2024 End: June 01, 2024 Team Status: Active Member Role/Relationship Status Dates Dr. Kwabena Menjivar MD Primary Care Provider Acti ve Start: June 05, 2024 Keven KIRKPATRICK MD Attending Provider Active Start: June 05, 2024 Keven KIRKPATRICK MD Referring Provider Active Start: June 05, 2024 Team Status: Active Member Role/Relationship Status Dates Dr. Kwabena Menjivar MD Primary Care Provider Acti ve Start: June 12, 2024 Keven KIRKPATRICK MD Attending Provider Active Start: June 12, 2024 Team Status: Inactive Member Role/Relationship Status Dates Dr. Kwabena Menjivar MD Primary Care Provider Acti ve Start: June 12, 2024 End: June 12, 2024 Angelika Nowak NP YIELD ENGINEER-C Attending Provider Active Start: June 12, 2024 End: June 12, 2024 Team Status: Active Member Role/Relationship Status Dates Dr. Kwabena Menjivar MD Primary Care Provider Acti ve Start: June 19, 2024 Keven KIRKPATRICK MD Attending Provider Active Start: June 19, 2024 Team Status: Inactive Member Role/Relationship Status Dates Dr. Kwabena Menjivar MD Primary Care Provider Acti ve Start: June 21, 2024 End: June 21, 2024 Angelika Nowak YIELD ENGINEER, YIELD ENGINEER-C Attending Provider Active Start: June 21, 2024 End: June 21, 2024 Team Status: Active Member Role/Relationship Status Dates Dr. Kwabena Menjivar MD Primary Care Provider Acti ve Start: June 26, 2024 Keven KIRKPATRICK MD Attending Provider Active Start: June 26, 2024 Keven KIRKPATRICK MD Referring Provider Active Start: June 26, 2024 Team Status: Active Member Role/Relationship Status Dates Dr. Kwabena Menjivar MD Primary Care Provider Acti ve Start: July 04, 2024 Keven KIRKPATRICK MD Attending Provider Active Start: July 04, 2024 Team Status: Active Member Role/Relationship Status Dates Dr. Kwabena Menjivar MD Primary Care Provider Acti ve Start: July 11, 2024 Keven KIRKPATRICK MD Attending Provider Active Start: July 11, 2024 Team Status: Inactive Member Role/Relationship Status Dates Dr. Kwabena Menjivar MD Primary Care Provider Acti ve Start: July 20, 2024 End: July 20, 2024 Dr. Kwabena Menjivar MD Attending Provider Active Start: July 20, 2024 End: July 20, 2024 Dr. Kwabena Menjivar MD Referring Provider Active Start: July 20, 2024 End: July 20, 2024 Team Status: Inactive Member Role/Relationship Status Dates Dr. Kwabena Menjivar MD Primary Care Provider Acti ve Start: August 03, 2024 End: August 03, 2024 Dr. Kwabena Menjivar MD Referring Provider Active Start: August 03, 2024 End: August 03, 2024 Dr. Ciro Diego MD Attending Provider Active Start: August 03, 2024 End: August 03, 2024 Team Status: Inactive Member Role/Relationship Status Dates Dr. Kwabena Menjivar MD Primary Care Provider Acti ve Start: August 03, 2024 End: August 03, 2024 Dr. David Granados MD Attending Provider Active S tart: August 03, 2024 End: August 03, 2024 Team Status: Active Member Role/Relationship Status Dates Dr. Kwabena Menjivar MD Primary Care Provider Acti ve Start: August 05, 2024 Dr. Kayode Woods DO Emergency Provider Active Start: August 05, 2024 Dr. Yu Bradley MD Admit Provider Active Star t: August 05, 2024 Dr. Yu Bradley MD Attending Provider Active Start: August 05, 2024 Dr. Yu Bradley MD Other Provider Active Star t: August 05, 2024 Team Status: Inactive Member Role/Relationship Status Dates Dr. Kwabena Menjivar MD Primary Care Provider Acti ve Start: August 06, 2024 End: August 09, 2024 Dr. Kayode Woods DO Emergency Provider Active Start: August 06, 2024 End: August 09, 2024 Dr. Yu Bradley MD Admit Provider Active Star t: August 06, 2024 End: August 09, 2024 Dr. Yu Bradley MD Other Provider Active Star t: August 06, 2024 End: August 09, 2024 Dr. Jacoby Mendoza MD Attending Provider Active Start: August 06, 2024 End: August 09, 2024 Dr. Keanu Collier DO Other Provider Active S tart: August 06, 2024 End: August 09, 2024 Team Status: Active Member Role/Relationship Status Dates Dr. Kwabena Menjivar MD Primary Care Provider Acti ve Start: August 06, 2024 Dr. Kayode Woods DO Emergency Provider Active Start: August 06, 2024 Dr. Yu Bradley MD Admit Provider Active Star t: August 06, 2024 Dr. Yu Bradley MD Other Provider Active Star t: August 06, 2024 Dr. Keanu Collier DO Attending Provider Active Start: August 06, 2024 Dr. Keanu Collier DO Other Provider Active S tart: August 06, 2024 Team Status: Active Member Role/Relationship Status Dates Dr. Kwabena Menjivar MD Primary Care Provider Acti ve Start: August 08, 2024 Dr. Kayode Woods DO Emergency Provider Active Start: August 08, 2024 Dr. Yu Bradley MD Admit Provider Active Star t: August 08, 2024 Dr. Yu Bradley MD Other Provider Active Star t: August 08, 2024 Dr. Jacoby Mendoza MD Attending Provider Active Start: August 08, 2024 Dr. Jacoby Mendoza MD Other Provider Active Star t: August 08, 2024 Dr. Keanu Collier DO Other Provider Active S tart: August 08, 2024 Team Status: Active Member Role/Relationship Status Dates Dr. Kwabena Menjivar MD Primary Care Provider Acti ve Start: August 09, 2024 Dr. Kayode Woods DO Emergency Provider Active Start: August 09, 2024 Dr. Yu Bradley MD Admit Provider Active Star t: August 09, 2024 Dr. Yu Bradley MD Other Provider Active Star t: August 09, 2024 Dr. Jacoby Mendoza MD Attending Provider Active Start: August 09, 2024 Dr. Jacoby Mendoza MD Other Provider Active Star t: August 09, 2024 Dr. Keanu Collier DO Other Provider Active S tart: August 09, 2024 Team Status: Inactive Member Role/Relationship Status Dates Dr. Kwabena Menjivar MD Primary Care Provider Acti ve Start: August 11, 2024 End: August 11, 2024 Dr. Keanu Zurita DO Attending Provider Active Start: August 11, 2024 End: August 11, 2024 Dr. Keanu Zurita DO Emergency Provider Active Start: August 11, 2024 End: August 11, 2024 Team Status: Active Member Role/Relationship Status Dates Dr. Kwabena Menjivar MD Primary Care Provider Acti ve Start: August 14, 2024 Keven KIRKPATRICK MD Attending Provider Active Start: August 14, 2024 Team Status: Inactive Member Role/Relationship Status Dates Dr. Kwabena Menjivar MD Primary Care Provider Acti ve Start: August 29, 2024 End: August 29, 2024 Dr. Keven Etienne MD Attending Provider Active Start: August 29, 2024 End: August 29, 2024 Team Status: Active Member Role/Relationship Status Dates Dr. Kwabena Menjivar MD Primary Care Provider Acti ve Start: September 04, 2024 Keven KIRKPATRICK MD Attending Provider Active Start: September 04, 2024 Keven KIRKPATRICK MD Referring Provider Active Start: September 04, 2024 Team Status: Inactive Member Role/Relationship Status Dates Dr. Kwabena Menjivar MD Primary Care Provider Acti ve Start: August 14, 2024 End: August 14, 2024 Angelika Nowak YIELD ENGINEER, YIELD ENGINEER-C Attending Provider Active Start: August 14, 2024 End: August 14, 2024 Team Status: Inactive Member Role/Relationship Status Dates Dr. Kwabena Menjivar MD Primary Care Provider Acti ve Start: August 29, 2024 End: August 29, 2024 Dr. Keven Etienne MD Attending Provider Active Start: August 29, 2024 End: August 29, 2024 Team Status: Active Member Role/Relationship Status Dates Dr. Kwabena Menjivar MD Primary Care Provider Acti ve Start: September 04, 2024 Keven KIRKPATRICK MD Attending Provider Active Start: September 04, 2024 Keven KIRKPATRICK MD Referring Provider Active Start: September 04, 2024 Goals (unrecognized section and content) Goals [...] PRIMARY CLINICAL RECORDS. [facility] [employer] provides no warranty or guarantee of the accuracy or completeness of information in this document.
--- NOTE | 2024-10-18 04:40 | CDU_ITS ---
Reason For Study Reason For Study: Near Syncope Rt. Velocities/BP Lt. Velocities/BP Prox CCA 56.3/13.8 cm/sec. Prox CCA 102.6/32.7 cm/sec. Mid CCA 79.9/17.6 cm/sec. Mid CCA 110.4/22.3 cm/sec. Dist CCA 69.8/16.9 cm/sec. Dist CCA 110.4/27.5 cm/sec. Prox ICA 62.3/14.1 cm/sec. Prox ICA 159.7/45.6 cm/sec. Mid ICA 42.4/13.1 cm/sec. Mid ICA 72.4/28.9 cm/sec. Dist ICA 83.9/22.4 cm/sec. Dist ICA 88.3/33.0 cm/sec. Rt. ICA/CCA = 1.1. Lt. ICA/CCA = 1.4. Prox ECA 53.8/13.1 cm/sec. Prox ECA 65.1/7.5 cm/sec. Rt. Vert. 35.5/12.8 cm/sec. Lt. Vert. 47.4/10.6 cm/sec. Right Extracranial There is homogeneous, smooth atherosclerotic plaque noted in the right common carotid artery. There is heterogeneous, irregular atherosclerotic plaque noted in the right internal carotid artery. The right internal carotid artery is very tortuous. There is intimal thickening but no significant atherosclerotic plaque noted in the right external carotid artery. Antegrade flow is noted in the right vertebral artery. Left Extracranial There is homogeneous, smooth atherosclerotic plaque noted in the left common carotid artery. There is heterogeneous, irregular atherosclerotic plaque noted in the left internal carotid artery. There is heterogeneous, irregular atherosclerotic plaque noted in the left external carotid artery. Antegrade flow is noted in the left vertebral artery. Procedure Carotid Duplex [id number]. This is a Carotid Duplex examination using B-mode, color flow and specral Doppler. The exam was diagnostic. Exam performed portable in patient room. VL/Carotid Duplex Ultrasound Interpretation Summary Mild (<50%) stenosis right extracranial internal carotid. Moderate (50-69%) stenosis left extracranial internal carotid. Patent and antegrade vertebrals bilaterally. Ordering Physician: Jacoby Tenorio Referring Physician: Kevin Menjivar Performed By: Yousif Hunter RVT
--- OUTSIDE RECORDS SUMMARY | 2024-10-18 05:09 | XMS RPT_ITS | CCD ---
Author Organization [facility] Care Team Providers Care Outside Contractor Sales Name Role Phone JORGE L CARTER Unavailable Unavailable KWABENA MENJIVAR Unavailable Unavailable BAO CERVANTES Unavailable Unavailable KWABENA MENJIVAR Unavailable Unavailable Otto CABELLO, Dr. Brown Primary Care Provider Mark CABELLO, Dr. Sterling Attending Provider Dr. Asher Flores MD Emergency Provider [phone] David Granados MD Attending Provider Dr. Laureano Gallagher DO Emergency Provider [phone] Keanu Alfred DO Admit Provider Dr. Keanu Alfred DO Attending Provider Dr. Keanu Alfred DO Other Provider Dr. Yas Godinez MD Attending Provider Dr. Yas oGdinez MD Other Provider Dr. Keanu Alfred DO Attending Provider Rosetta CABELLO, Dr. Samaniego Attending Provider Dr. Ciro Diego MD Other Provider Dr. Harish Baxter MD Attending Provider Dr. Ciro Diego MD Attending Provider Dr. David Granados MD Referring Provider Dr. Harish Baxter MD Other Provider Anita SUE-C, Ana Rosa Snyder Attending Provider Dr. Harish Baxter MD Referring Provider Dr. Corazon Wright DO Catherine Admit Provider Sementi DO, Dr. Corazon Pacheco Attending Provide r Sementi DO, Dr. Corazon Pacheco Referring Provide r Sementi DO, Dr. Corazon Pacheco Other Provider Awa Gamble Attending Provider Tima BREWER, Dr. Colunga Referring Provider Jaimie CABELLO, Keven Attending Provider Unavaila kamlesh Menjivar MD, Dr. Brown Referring Provider Sukhi CHIEF COMMUNICATIONS OFFICER-C, Sonia Attending Provider Sukhi CHIEF COMMUNICATIONS OFFICER-C, Sonia Referring Provider Otto CABELLO, Dr. Brown [...] Provider Dr. Ciro Diego MD Attending Provider Sahil CABELLO, Dr. Moreira Referring Provider Darwin ACBELLO, Dr. Hernandez Attending Provider Darwin CABELLO, Dr. Hernandez Referring Provider Sahil CABELLO, Dr. Moreira Other Provider Anita SUE-C, Ana Rosa Snyder Attending Provider Semengavin DO, Dr. Corazon Pacheco Admit Provider Semengavin BREWER, Dr. Corazon Pacheco Attending Provide r Sementi DO, Dr. Corazon Pacheco Referring Provide r Sementi DO, Dr. Corazon Pacheco Other Provider Awa Gamble Attending Provider Jaimie CABELLO, Keven Attending Provider Unavailyenifer Menjivar MD, Dr. Brown Referring Provider [phone] Sukhi CHIEF COMMUNICATIONS OFFICER-C, Sonia Attending Provider Sukhi CHIEF COMMUNICATIONS OFFICER-C, Sonia Referring Provider Jaimie CABELLO, Keven Referring Provider Unavailyenifer Menjivar MD, Dr. Borwn Attending Provider [phone] She CHIEF COMMUNICATIONS OFFICER-C, Angelika Attending Provider Jaimie CABELLO, Dr. Baca Attending Provider Woods DO, Dr. Headley Emergency Provider Kirk CABELLO, Dr. Nicholas Admit Provider Kirk CABELLO, [...] Care Provider Keven Etienne MD Attending Provider Unavailyenifer Nowak NP-CAngelika Attending Provider Johnathon CABELLO, Dr. Tanner Attending Provider Jaimie CABELLO, Dr. Baca Attending Provider Yu Bradley Admitting Unavailable Yu Bradley Consulting Unavailable Jacoby Mendoza Attending Unavailable [facility] Unavailable Keanu Collier Consulting Unavailable Ciro Diego Consulting [facility]available Harish Baxter Attending Unavailable Keanu Alfred Admitting Unavailable SiskaYas Consulting Unavailable Keanu Alfred Consulting Unavailable Sementi, Corazon Pacheco Admitting Unavaila ble Sementi, Corazon Pacheco Attending Unavaila ble [facility]available Sementi, Corazon Pacheco Referring [facility]availa ble [facility] Keanu Zurita Attending Unavailable [facility] Unavailable Awa Chadwick Attending Unavailable Sementi, Corazon Pacheco Consulting Unavaila ble Sementi, Corazon Pacheco Referring Unavaila ble Sementi, Corazon Pacheco Admitting Unavaila ble Sementi, Corazon Pacheco Attending Unavaila ble Sonia Isbell Attending Unavailable [facility] Referring Unavailable [facility] Unavailable Angelika Nowak NP Attending Unavailable [facility] Primary Care Unavailable Oleghe OLS, Efewongbe Referring Unavailabl e Oleghe OLS, Efewongbe Attending Unavailabl e [facility] Unavailable Oleghe OLS, Efewongbe Attending Unavailabl e [facility] Unavailable Oleghe OLS, Effrannyongbe Attending Unavailabl e [facility] Unavailable Oleghe OLS, Efewongbe Referring Unavailabl e Oleghe OLS, Efewongbe Attending Unavailabl e [facility] Unavailable Oleghe OLS, Efewcadenbe Attending Unavailabl e [facility] Unavailable [facility] Unavailable [facility] Referring [facility]available [facility] Attending Unavailable Bisi Brittonbe Attending Unavailabl e [facility] Primary Care Unavailable Sonia Isbell Referring Unavailable Sonia Isbell Attending Unavailable [facility] Primary Care Unavailable [facility] Primary [facility] Unavailable Fransicoe Bisi KIRKPATRICKbe Attending Unavailabl e Bradley, Yu Admitting Unavailable Bradley, Yu Consulting Unavailable Bradley Yu Attending Unavailable [facility] Primary Care Unavailable Bradley, Yu Admitting Unavailable Bradley, Yu Consulting Unavailable [facility] Unavailable Keanu Collier Attending Unavailable Tereletsky, Keanu Consulting Unavailable [facility] Primary Care Unavailable GuerdapperiShaneic Attending Unavailable Jopperi, Keanu Admitting Unavailable Jopperi, Keanu Consulting Unavailable Sisjoann Yas Attending Unavailable Siska, Yas Consulting Unavailable Jopperi, Keanu Referring Unavailable Tracie Diegoag Consulting Unavailable Siska, Yas Consulting Unavailable [facility] Primary Care Unavailable Jopperi, Keanu Admitting Unavailable Guerdapperi, Keanu Attending Unavailable Tracie Diegoag Consulting Unavailable Jopperi, Keanu Consulting Unavailable Tracie Diegoag Attending Unavailable Sahil, Harish Referring Unavailable KitJacoby farley Attending Unavailable Jacoby Mendoza Consulting Unavailable Tracie Diegoag Attending Unavailable [facility] Referring Unavailable [facility] Primary [facility] Unavailable David Granados Attending Unavailable [facility] Primary Care Unavailable She CHIEF COMMUNICATIONS OFFICER, Angelika Attending Unavailable [facility] Primary Care Unavailable Ciro Diego Attending Unavailable [facility] Referring Unavailable [facility] Primary Care Unavailable Sahil, Harish Attending Unavailable Sahil, Harish Consulting Unavailable Anita CHIEF COMMUNICATIONS OFFICER, Ana Rosa Snyder Attending Unavailabl e David Granados Attending Unavailable [facility] Primary Care Unavailable Bisi Etiennebe Attending Unavailable [facility] Primary Care Unavailable [facility] Primary Care Unavailable David Granados Attending Unavailable [facility] Primary Care Unavailable She CHIEF COMMUNICATIONS OFFICER, Angelika Attending Unavailable Marcuston CHIEF COMMUNICATIONS OFFICER, Angelika Attending Unavailable [facility] Primary Care Unavailable Bisi Etiennebe Attending Unavailable [facility] Primary Care Unavailable Tickton CHIEF COMMUNICATIONS OFFICER, Angelika Attending Unavailable Ranney, Christopher Primary Care Unavailable Ciro Diego Attending Unavailable Sonia Isbell Referring Unavailable SukhiSonia marie Attending Unavailable Otto, [facility] Unavailable Oleghe KAYA, Efewongbe Attending Unavailabl e Ranney, Christopher Primary Care Unavailable Ranney, Christopher Referring Unavailable Ranney, Christopher Attending Unavailable Ranney, Christopher Primary Care Unavailable Ranney, Christopher Primary Care Unavailable Asher Flores Attending Unavailable Ranney, Christopher Referring Unavailable Ranney, Kwabena Attending Unavailable Ranney, Christopher Primary Care Unavailable David Granados Attending Unavailable Otto, Christopher Primary Care Unavailable Corazon Wright Referring Unavaila ble Ranthomas, Christopher Primary Care Unavailable Danette Sargent Attending Unavailabl e Darwin, David Referring Unavailable Darwin, David Attending Unavailable Ranney, Christopher Primary Care Unavailable Ranney, Christopher Referring Unavailable Sonia Isbell Attending Unavailable Gurwinderney, Christopher Primary Care Unavailable Ranney, [facility] Unavailable Oleghe KAYA Efewongbe Attending Unavailabl e Oleghe OLS, Efewongbe Referring Unavailabl e Oleghe OLS, Efewongbe Attending Unavailabl e Otto, [facility] Unavailable Otto CABELLO, Dr. Brown Primary Care Provider She SUE-Angelika Wu Attending Provider Keven Etienne MD Attending Provider UnavailKeven Ledezma MD Referring Provider UnavailDr. Kwabena Eid MD Referring Provider Dr. Ciro Diego MD Attending Provider Dr. David Granados MD Attending Provider Dr. Buck Rome MD Emergency Provider Dr. Jacoby Tenorio DO Admit Provider Unavail able Dr. Jacoby Tenorio DO Attending Provider Unav ailable Medications Current Medications Medication Drug Class(es) Dates Sig (Normalized) Sig (Original) acetaminophen 325 mg oral tablet (20 sources) Start: 08-09-2024 Start: 05-18-2024 End: 06-01-2024 Start: 04-27-2024 End: 05-18-2024 albuterol 0.83 mg/ml inhalation solution (7 sources) beta2-Adrenergic Agonist Start: 08-09-2024 24 hr buPROPion hydrochloride 150 mg extended release oral tablet (7 sources) Aminoketone Start: 08-05-2024 Digestive Enzymes (3 sources) Start: 11-26-2020 take 1 capsule by mouth three times daily at mealtime Digestive Enzymes Active 1 CAP PO 3 times per day with meals November 26, 2020 12:00am may open cap/sprinkle on applesauce;do not chew docusate sodium 50 mg / sennosides, long-term 8.6 mg oral tablet (17 sources) Start: 04-27-2024 Start: 04-27-2024 Sennosides-Doc usate Sodium (Stimulant Laxative Plus) 8.6-50 mg Tablet Active 2 {tbl} PO TWICE A DAY April 27, 2024 12:00am DULoxetine 30 mg delayed release oral capsule (7 sources) Serotonin and Norepinephrine Reuptake Inhibitor Start: [...] DAILY WITH MEALS April 27, 2024 12:00am Hydrocortisone Acetate (Anusol-Hc) 25 mg suppository (1 [...] Active 1 NMA TOPICAL TWICE A DAY 0 May 18, 2024 12:00am Please contact the information source for Protocol details. midodrine hydrochloride 5 mg oral tablet (20 sources) alpha-Adrener gic Agonist Start: 05-18-2024 Midodrine 5 mg Tablet Active 10 mg PO 0700,1100,1500 0 May 18, 2024 12:00am Start: 04-27-2024 End: 05-18-2024 mirtazapine 15 mg oral table t (16 sources) Start: 05-18-2024 Start: 05-18-2024 take 1 tablet by emily th at bedtime Mirtazapine 15 mg Tablet Active 15 mg PO AT BEDTIME 0 May 18, 2024 12:00am Haskins (Nk) (1 source) Start: 02-26-2024 Haskins (Nk) A ctive February 26, 2024 1:00am [...] 12:00am bisacodyl 10 mg rectal suppo sitory (16 sources) Stimulant Laxative Start: 05-18-2024 End: 08-05-2024 Start: 05-18-2024 Bisacodyl 10 m g Suppository Active 10 mg RC ONE TIME as needed for Constipation May 18, 2024 12:00am calcium polycarbophil 625 mg oral tablet (15 sources) Start: 05-25-2024 End: 08-05-2024 carboxymethylcellulose sodium 5 mg/ml ophthalmic solution (20 sources) Start: 04-27-2024 End: 08-05-2024 diazePAM 2 mg oral tablet (17 sources) Benzodiazepine Start: 04-27-2024 End: 05-18-2024 dicyclomine [...] MG PO DAILY September 15, 2020 12:00am gabapentin 100 mg oral capsu le (16 sources) Anti-epileptic Agent Start: 05-18-2024 End: 10-17-2024 meclizine hydrochloride 25 m g oral tablet (17 sources) Antiemetic Start: 04-27-2024 End: 05-18-2024 melatonin 10 mg sublingual tablet (7 sources) Start: 08-09-2024 End: 10-17-2024 meloxicam 15 mg oral tablet (17 sources) Nonsteroidal Anti-inflammatory Drug Start: 04-27-2024 End: 05-18-2024 methocarbamol 500 mg oral tablet (17 sources) Muscle Relaxant Start: 04-27-2024 End: 05-18-2024 omeprazole 20 mg delayed release oral capsule (20 sources) Proton Pump Inhibitor Start: 2020 End: 02-26-2024 Start: 11-12-2020 End: 2020 oxyCODONE hydrochloride 5 mg oral tablet (17 sources) Opioid Agonist Start: 04-27-2024 End: 05-18-2024 sucralfate 100 mg/ml oral velasquez spension (20 sources) Aluminum Complex Start: 01-17-2021 End: 02-26-2024 tamsulosin hydrochloride 0.4 mg oral capsule (17 sources) alpha-Adrenergic Maria Del Carmen Start: 04-27-2024 [...] Translations: [Unspecified abdominal pain] 09-19-2020 Episodic Acute and unspecified renal failure (2 sources) Prerenal azotemia; Translations: [Unspecified kidney failure] 10-18-2024 Chronic Acute posthemorrhagic anemia (20 sources) Anemia following acute postoperative blood loss; Translations: [Acute posthemorrhagic anemia] Onset: 5 04-28-2024 Episodic Anxiety disorders (20 sources) Anxiety; Translations: [Anxiety disorder, unspecified] Onset: 5 05-10-2024 Chronic Comment on above: On Prozac in 2020 bu devante, he quit taking this medication because he though it gave him diarrhea. Conditions associated with dizziness or vertigo (20 sources) Benign paroxysmal positional vertigo; Translations: [Benign paroxysmal vertigo, unspecified ear] Onset: 5 05-10-2024 Episodic Comment on above: and has also had syn cope. Deficiency and other anemia (2 sources) Anemia; Translations: [Anemia, unspecified] 10-18-2024 Episodic Diseases of white blood cells (3 sources) Leukocytosis; Translations: [Elevated white blood cell count, unspecified] 10-18-2024 Chronic E Codes: Fall (20 sources) Fall; Translations: [...] hypertension] 04-19-2024 Chronic Fluid and electrolyte disorders (20 sources) Severe dehydration; Translations: [Dehydration] Onset: 5 04-28-2024 Episodic Genitourinary symptoms and ill-defined conditions (20 sources) Urinary incontinence; Translations: [Unspecified urinary incontinence] Onset: 5 04-28-2024 Chronic Genitourinary symptoms and ill-defined conditions (20 sources) Delay when starting to pass urine; Translations: [Hesitancy of micturition] Onset: 5 09-15-2020 Episodic Hyperplasia of prostate (14 sources) Benign prostatic hyperplasia; Translations: [Benign prostatic hyperplasia without lower urinary tract symptoms] Onset: 5 05-20-2024 Chronic Intestinal obstruction without hernia (20 sources) Fecal impaction; Translations: [Fecal impaction] 10-14-2018 Episodic Intracranial injury (20 sources) Traumatic brain injury with loss of consciousness; Translations: [Unspecified intracranial injury with loss of consciousness of unspecified duration, initial encounter] Onset: 5 04-28-2024 Episodic Malaise and fatigue (20 sources) Asthenia; Translations: [Other malaise] Onset: 5 04-28-2024 Episodic Mood disorders (1 source) Mood disorders; Translations: [Depression, unspecified] Onset: 5 Open wounds of head; neck; and trunk (18 sources) Laceration of eyebrow; Translations: [Laceration without [...] Translations: [Arthrodesis status] Onset: 5 Episodic Other eye disorders (20 [...] injuries and conditions due to external causes (18 sources) Closed injury of head; Translations: [Unspecified injury of head, initial encounter] 03-05-2024 Episodic Other nervous system disorders (20 sources) Cervical myelopathy; Translations: [Disease of spinal cord, unspecified] 04-21-2024 Chronic Comment on above: acute on chronic. velasquez mua has chronic cervical stenosis with myelomalacia but, [...] sublux ation secondary to muscle atrophy Other nutritional; endocrine; and metabolic disorders (2 sources) Insufficient fluid intake - finding; Translations: [Other symptoms and signs concerning food and fluid intake] 10-18-2024 Episodic Other screening for suspected conditions (not [...] above: Due to chronic untre ated reflux. Skull and face fractures (20 sources) Fracture [...] unspecified knee, initial encounter] 03-05-2024 Episodic Syncope (17 sources) Syncope; Translations: [Syncope and collapse] Onset: 5 04-19-2024 Episodic Comment on above: AT TIMES Unclassified (2 sources) Esophagitis/laryngitis Unclassified (1 source) R15.9 - Full incontinence of feces,K59.00 - Constipation, unspecified Urinary tract infections (20 sources) Urinary tract infectious disease; Translations: [Urinary tract infection, site not specified] Onset: 5 05-10-2024 Episodic Past or Other Problems Problem Classification Problem Date Documented Da te Episodic/Chronic Other aftercare (1 source) Encounter for other [...] Translations: [Edema of larynx] Onset: 05-19-2024 Episodic Results Test Name Value Interpretation Reference Range Facility Absolute lymphocyte countOrd ered By: Buck Rome on 10-18-2024 Lymphocytes Auto (Unsp spec) [#/Vol] 1.09 10*3/uL 0.83-4.[address] [facility] Amorphous sediment detection in urine sediment by light microscopyOrdered By: Buck Rome on 10-18-2024 Amorphous sediment LM Ql (Urine sed) 1+ [facility] Anion gap in Serum or Plasma Ordered By: Buck Rome on 10-18-2024 Anion gap [Moles/Vol] 14 mmol/L 5-15 [facility] Automated lymphocyte count a s percentage of total leukocytesOrdered By: Buck Montgomeryo on 10-18-2024 Lymphocytes/100 WBC Auto (Unsp spec) 7.4 % Low 19-[address] [facility] BUN/creatinine ratioOrdered By: Buck Montgomeryo on 10-18-2024 Urea nitrogen/Creatinine [Mass ratio] 24.8 mg/mg High 10-[address] [facility] Basophil percentageOrdered B y: Buck Rome on 10-18-2024 Basophils/100 WBC (Bld) 0.2 % 0-1 [facility] Bilirubin Test strip Ql (U)O rdered By: Buck Rome on 10-18-2024 Bilirubin Ql (U) Negative Negative [facility] Carbon dioxide, total [Moles /volume] in Central venous bloodOrdered By: Buck Rome on 10-18-2024 CO2 [Moles/Vol] 25.2 mmol/L 21.0-32.[address] [facility] Chloride assayOrdered By: Shruthi Rome on 10-18-2024 Chloride [Moles/Vol] 97 mmol/L Low 98-108 [facility] Eosinophil percentageOrdered By: Buck Montgomeryo on 10-18-2024 Eosinophils/100 WBC (Bld) 0.2 % 0-[address] [facility] Erythrocyte distribution wid th ratioOrdered By: Buck Rome on 10-18-2024 Erythrocyte distribution width (RBC) [Ratio] 12.3 % 11.6-14.[address] [facility] Erythrocyte distribution wid th standard deviationOrdered By: Buck Rome on 10-18-2024 Erythrocyte distribution width (RBC) [Ratio] 37.1 fl 35.1-43.[address] [facility] Glomerular filtration rate ( GFR) estimation/1.73 sq m using serum, plasma, or whole bOrdered By: Buck Rome on 10-18-2024 GFR/1.73 sq M.predicted among non-blacks MDRD (S/P/Bld) [Vol rate/Area] 78 mL/min/{1.73_m2} >[address] [facility] Hematocrit Auto (Bld) [Volum e fraction]Ordered By: Buck Rome on 10-18-2024 Hematocrit (Bld) [Volume fraction] 33.9 % Low 40-[address] [facility] Hemoglobin measurementOrdere d By: Buck Rome on 10-18-2024 Hemoglobin (Bld) [Mass/Vol] 11.2 g/dL Low 13.0-16.[address] [facility] Immature granulocytes/100 WB C Auto (Bld)Ordered By: Buck Rome on 10-18-2024 Immature granulocytes/100 WBC (Bld) 0.700 % 0.0-0.[address] [facility] Ketones Test strip Ql (U)Ord ered By: Buck Rome on 10-18-2024 Ketones Ql (U) 5 mg/dl High Negative [facility] MCV (mean corpuscular volume ) determinationOrdered By: Buck Rome on 10-18-2024 MCV (RBC) [Entitic vol] 82.3 fL 80-94 [facility] Mean corpuscular hemoglobin (MCH) determinationOrdered By: Buck Rome on 10-18-2024 MCH (RBC) [Entitic mass] 27.2 pg 27.0-32.[address] [facility] Monocyte percentageOrdered B y: Buck Rome on 10-18-2024 Monocytes/100 WBC (Bld) 8.0 % 0-10 [facility] Mucus LM Ql (Urine sed)Order ed By: Buck Rome on 10-18-2024 Mucus Ql (Urine sed) 0 SEEN /hpf [facility] Neutrophil percentageOrdered By: Buck Rome on 10-18-2024 Neutrophils/100 WBC (Bld) 83.5 % High 47-[address] [facility] Nitrite Test strip Ql (U)Ord ered By: Buck Rome on 10-18-2024 Nitrite Ql (U) Negative Negative [facility] Platelet countOrdered By: Shruthi Rome on 10-18-2024 Platelets (Bld) [#/Vol] 325 10*3/uL 150-[address] [facility] Potassium measurement (mass/ volume)Ordered By: Buckagatha Rome on 10-18-2024 Potassium (Unsp spec) [Mass/Vol] 3.9 mmol/L 3.3-5.[address] [facility] Protein Test strip Ql (U)Ord ered By: Buck Rome on 10-18-2024 Protein Ql (U) 15 mg/dl High Negative [facility] RBC Auto (Bld) [#/Vol]Ordere d By: Buck Rome on 10-18-2024 RBC (Bld) [#/Vol] 4.12 10*6/uL Low 4.6-6.2 [facility] Serum creatinine measurement (mass/volume)Ordered By: Buck Rome on 10-18-2024 Creatinine [Mass/Vol] 0.97 mg/dL 0.70-1.20 [facility] Serum glucose measurement (m ass/volume)Ordered By: Buck Rome on 10-18-2024 Glucose [Mass/Vol] 98 mg/dL 70-99 [facility] Serum or plasma calcium ratna urement (mass/volume)Ordered By: Buck Rome on 10-18-2024 Calcium [Mass/Vol] 9.7 mg/dL 7.6-11.0 [facility] Serum or plasma urea nitroge n measurement (mass/volume)Ordered By: Buck Rome on 10-18-2024 Urea nitrogen [Mass/Vol] 24 mg/dL High 4-[address] [facility] Sodium levelOrdered By: Buck Rome on 10-18-2024 Sodium [Moles/Vol] 136 mmol/L 133-145 [facility] Squamous epithelial cells de tection in urine sediment by light microscopyOrdered By: Buck Rome on 10-18-2024 Epithelial cells.squamous LM Ql (Urine sed) 0 SEEN /hpf 0-[address] [facility] Stool gastrointestinal hemog lobin detection by immunologic methodOrdered By: Buck Rome on 10-18-2024 Lower GI hemoglobin IA Ql (Stl) [facility] Urine clarityOrdered By: Buck Rome on 10-18-2024 Clarity (U) Clear Clear [facility] Urine color determinationOrd ered By: Buck Rome on 10-18-2024 Color (U) Yellow Yellow [facility] Urine glucose detectionOrder ed By: Buck Rome on 10-18-2024 Glucose Ql (U) Normal mg/dl Normal [facility] Urine leukocyte esterase det ection by dipstickOrdered By: Buck Rome on 10-18-2024 Leukocyte esterase Test strip Ql (U) Negative Negative [facility] Urine pHOrdered By: Buck Gall o on 10-18-2024 pH (U) 6.0 [pH] 5.0 - 8.[address] [facility] Urine sediment bacteria coun t by microscopy (number/high power field)Ordered By: Buck Rome on 10-18-2024 Bacteria LM.HPF (Urine sed) [#/Area] 2 /[HPF] None Seen [facility] Urine specific gravity measu rementOrdered By: Buck Rome on 10-18-2024 Specific gravity (U) [Rel density] 1.020 1.002-1.[address] [facility] Urine urobilinogen measureme ntOrdered By: Buck Rome on 10-18-2024 Urobilinogen Ql (U) 1 mg/dl High Normal [facility] White blood cell (WBC) count Ordered By: Buck Rome on 10-18-2024 WBC (Bld) [#/Vol] 14.7 10*3/uL High 4.4-11.0 [facility] White blood cell countOrdere d By: Buck Rome on 10-18-2024 White blood cell count 0-5 SEEN /hpf 0-[address] [facility] Bacteria Ur Culton Bacteria identified Cx Nom (U) ORGANISM ID: 1 10,000 -<50,000 CFU/ml Normal urogenital tushar Normal [facility] Comment on above: Performed By: #### 6 30-4 #### [facility] CLIA [id number] [address] [place] [address] [place] URINALYSIS, DIPSTICK ONLYon 10-05-2024 Bilirubin Ql (U) Negative Normal Negative [facility] Comment on above: Order Comment: Speci men Type: URINE SPECIMEN Ordering Facility: [facility] Address: [address] [place] [address] Performed By: #### U A #### [facility] CLIA [id number] [address] [place] [address] [place] Clarity (Unsp spec) Clear Normal Clear Fer [facility] Comment on above: Order Comment: Speci men Type: URINE SPECIMEN Ordering Facility: [facility] Address: [address] [place] [address] Performed By: #### U A #### [facility] CLIA [id number] [address] [facility] [address] [place] [address] [place] Color (U) Yellow Normal Yellow [facility] Comment on above: Order Comment: Speci men Type: URINE SPECIMEN Ordering Facility: [facility] Address: [address] [place] [address] Performed By: #### U A #### [facility] CLIA [id number] [address] [place] [id number] [place] Glucose Test strip (U) [Mass/Vol] Negative Normal Negative [facility] Comment on above: Order Comment: Speci men Type: URINE SPECIMEN Ordering Facility: [facility] Address: [address] [place] [address] Performed By: #### U A #### [facility] CLIA [id number] [address] [address] [place] Hemoglobin Ql (U) Negative Normal Negative [facility] Comment on above: Order Comment: Speci men Type: URINE SPECIMEN Ordering Facility: [facility] Address: [address] [place] [address] Performed By: #### U A #### [facility] CLIA [id number] [facility] [facility] [address] [place] [address] [place] Ketones Ql (U) Negative Normal Negative [facility] Comment on above: Order Comment: Speci men Type: URINE SPECIMEN Ordering Facility: [facility] Address: [address] [place] [address] Performed By: #### U A #### [facility] CLIA [id number] [address] [facility] [address] [address] [place] Leukocyte esterase Test strip Ql (U) Negative Normal Negative [facility] Comment on above: Order Comment: Speci men Type: URINE SPECIMEN Ordering Facility: [facility] Address: [address] [place] [address] Performed By: #### U A #### [facility] CLIA [id number] [address] [place] [address] [place] Nitrite Ql (U) Negative Normal Negative [facility] Comment on above: Order Comment: Speci men Type: URINE SPECIMEN Ordering Facility: [facility] Address: [address] [place] [address] Performed By: #### U A #### [facility] CLIA [id number] [address] [place] [address] [place] pH (U) 6.0 [pH] Normal 5.0-8.0 [facility] Comment on above: Order Comment: Speci men Type: URINE SPECIMEN Ordering Facility: [facility] Address: [address] [place] [address] Performed By: #### U A #### [facility] CLIA [id number] [address] [place] [address] [place] Protein (U) [Mass/Vol] Trace Abnormal Negative [facility] Comment on above: Order Comment: Speci men Type: URINE SPECIMEN Ordering Facility: [facility] Address: [address] [place] [address] Performed By: #### U A #### [facility] CLIA [id number] [address] [place] [address] [place] Specific gravity (U) [Rel density] 1.014 Normal 1.005-1.030 [facility] Comment on above: Order Comment: Speci men Type: URINE SPECIMEN Ordering Facility: [facility] Address: [address] [place] [address] Performed By: #### U A #### [facility] CLIA [id number] [address] [place] [address] [facility] [place] Urobilinogen Ql (U) 1.0 EU/dL Normal 0.2-1.0 EU/dL [facility] Comment on above: Order Comment: Speci men Type: URINE SPECIMEN Ordering Facility: [facility] Address: [address] [place] [address] [place] [address] Performed By: #### U A #### [facility] CLIA [id number] [address] [place], [place] [id number] [facility] Absolute lymphocyte countOrd ered By: Keven Etienne on 09-04-2024 Lymphocytes Auto (Unsp spec) [#/Vol] 2.41 10*3/uL 0.83-4.[address] [facility] Anion gap in Serum or Plasma Ordered By: Keven Etienne on 09-04-2024 Anion gap [Moles/Vol] 12 mmol/L 5-15 [facility] Automated lymphocyte count a s percentage of total leukocytesOrdered By: Keven Etienne on 09-04-2024 Lymphocytes/100 WBC Auto (Unsp spec) 27.0 % 19-[address] [facility] BUN/creatinine ratioOrdered By: Keven Etinene on 09-04-2024 Urea nitrogen/Creatinine [Mass ratio] 13.7 mg/mg 10-[address] [facility] Basophil percentageOrdered B y: Keven Etienne on 09-04-2024 Basophils/100 WBC (Bld) 0.4 % 0-1 [facility] Carbon dioxide, total [Moles /volume] in Central venous bloodOrdered By: Keven Etienne on 09-04-2024 CO2 [Moles/Vol] 26.1 mmol/L 21.0-32.[address] [facility] Chloride assayOrdered By: Edwar Etienne on 09-04-2024 Chloride [Moles/Vol] 102 mmol/L 98-108 [facility] Eosinophil percentageOrdered By: Keven Etienne on 09-04-2024 Eosinophils/100 WBC (Bld) 5.9 % High 0-[address] [facility] Erythrocyte distribution wid th ratioOrdered By: Keven Etienne on 09-04-2024 Erythrocyte distribution width (RBC) [Ratio] 12.4 % 11.6-14.[address] [facility] Erythrocyte distribution wid th standard deviationOrdered By: Keven Marcdollyjuan luis on 09-04-2024 Erythrocyte distribution width (RBC) [Ratio] 38.8 fl 35.1-43.[address] [facility] Glomerular filtration rate ( GFR) estimation/1.73 sq m using serum, plasma, or whole bOrdered By: Keven Etienne on 09-04-2024 GFR/1.73 sq M.predicted among non-blacks MDRD (S/P/Bld) [Vol rate/Area] 82 mL/min/{1.73_m2} >[address] [facility] Hematocrit Auto (Bld) [Volum e fraction]Ordered By: Keven Etienne on 09-04-2024 Hematocrit (Bld) [Volume fraction] 38.1 % Low 40-[address] [facility] Hemoglobin measurementOrdere d By: Keven Etienne on 09-04-2024 Hemoglobin (Bld) [Mass/Vol] 12.7 g/dL Low 13.0-16.[address] [facility] Immature granulocytes/100 WB C Auto (Bld)Ordered By: Keven Etienne on 09-04-2024 Immature granulocytes/100 WBC (Bld) 0.300 % 0.0-0.[address] [facility] MCV (mean corpuscular volume ) determinationOrdered By: Keven Etienne on 09-04-2024 MCV (RBC) [Entitic vol] 86.0 fL 80-94 [facility] Mean corpuscular hemoglobin (MCH) determinationOrdered By: Keven Etienne on 09-04-2024 MCH (RBC) [Entitic mass] 28.7 pg 27.0-32.[address] [facility] Monocyte percentageOrdered B y: Keven Etienne on 09-04-2024 Monocytes/100 WBC (Bld) 8.4 % 0-10 [facility] Neutrophil percentageOrdered By: Keven Etienne on 09-04-2024 Neutrophils/100 WBC (Bld) 58.0 % 47-[address] [facility] Platelet countOrdered By: Edwar whittaker Monicodollyjuan luis on 09-04-2024 Platelets (Bld) [#/Vol] 231 10*3/uL 150-[address] [facility] Potassium measurement (mass/ volume)Ordered By: Keven Monicomarisela on 09-04-2024 Potassium (Unsp spec) [Mass/Vol] 4.2 mmol/L 3.3-5.[address] [facility] RBC Auto (Bld) [#/Vol]Ordere d By: Keven Monicomarisela on 09-04-2024 RBC (Bld) [#/Vol] 4.43 10*6/uL Low 4.6-6.2 [facility] Serum creatinine measurement (mass/volume)Ordered By: Bisikeron Marcmarisela on 09-04-2024 Creatinine [Mass/Vol] 0.93 mg/dL 0.70-1.20 [facility] Serum glucose measurement (m ass/volume)Ordered By: Edwarfrannycadenkeron Marcdollyjuan luis on 09-04-2024 Glucose [Mass/Vol] 105 mg/dL High 70-99 [facility] Serum or plasma calcium ratna urement (mass/volume)Ordered By: Keven Monicomarisela on 09-04-2024 Calcium [Mass/Vol] 9.3 mg/dL 7.6-11.0 [facility] Serum or plasma urea nitroge n measurement (mass/volume)Ordered By: Edwarfrannycadenkeron Marcmarisela on 09-04-2024 Urea nitrogen [Mass/Vol] 13 mg/dL 4-[address] [facility] Sodium levelOrdered By: Rita avendano Monicodollyjuan luis on 09-04-2024 Sodium [Moles/Vol] 140 mmol/L 133-145 [facility] White blood cell (WBC) count Ordered By: Edwarfrannyjuan alberto Monicomarisela on 09-04-2024 WBC (Bld) [#/Vol] 8.9 10*3/uL 4.4-11.0 [facility] Absolute lymphocyte countOrd ered By: Keven Monicomarisela on 08-14-2024 Lymphocytes Auto (Unsp spec) [#/Vol] 2.50 10*3/uL 0.83-4.[address] [facility] Anion gap in Serum or Plasma Ordered By: Keven Etienne on 08-14-2024 Anion gap [Moles/Vol] 11 mmol/L 5-15 [facility] Automated lymphocyte count a s percentage of total leukocytesOrdered By: Keven Etienne on 08-14-2024 Lymphocytes/100 WBC Auto (Unsp spec) 33.6 % 19-[address] [facility] BUN/creatinine ratioOrdered By: Keven Etienne on 08-14-2024 Urea nitrogen/Creatinine [Mass ratio] 14.3 mg/mg 10-[address] [facility] Basophil percentageOrdered B y: Keven Etienne on 08-14-2024 Basophils/100 WBC (Bld) 0.7 % 0-1 [facility] Bilirubin, totalOrdered By: Keven Etienne on 08-14-2024 Bilirubin [Mass/Vol] 0.30 mg/dL 0.00-1.30 [facility] Carbon dioxide, total [Moles /volume] in Central venous bloodOrdered By: Keven Etienne on 08-14-2024 CO2 [Moles/Vol] 24.6 mmol/L 21.0-32.[address] [facility] Chloride assayOrdered By: Edwar Etienne on 08-14-2024 Chloride [Moles/Vol] 105 mmol/L 98-108 [facility] Eosinophil percentageOrdered By: Keven Etienne on 08-14-2024 Eosinophils/100 WBC (Bld) 3.8 % 0-[address] [facility] Erythrocyte distribution wid th ratioOrdered By: Keven Etienne on 08-14-2024 Erythrocyte distribution width (RBC) [Ratio] 12.7 % 11.6-14.[address] [facility] Erythrocyte distribution wid th standard deviationOrdered By: Keven Etienne on 08-14-2024 Erythrocyte distribution width (RBC) [Ratio] 41.1 fl 35.1-43.[address] [facility] Glomerular filtration rate ( GFR) estimation/1.73 sq m using serum, plasma, or whole bOrdered By: Keven Etienne on 08-14-2024 GFR/1.73 sq M.predicted among non-blacks MDRD (S/P/Bld) [Vol rate/Area] 88 mL/min/{1.73_m2} >[address] [facility] Hematocrit Auto (Bld) [Volum e fraction]Ordered By: Keven Etienne on 08-14-2024 Hematocrit (Bld) [Volume fraction] 37.9 % Low 40-[address] [facility] Hemoglobin measurementOrdere d By: Keven Etienne on 08-14-2024 Hemoglobin (Bld) [Mass/Vol] 12.6 g/dL Low 13.0-16.[address] [facility] Immature granulocytes/100 WB C Auto (Bld)Ordered By: Keven Etienne on 08-14-2024 Immature granulocytes/100 WBC (Bld) 0.300 % 0.0-0.[address] [facility] MCV (mean corpuscular volume ) determinationOrdered By: Keven Etienne on 08-14-2024 MCV (RBC) [Entitic vol] 87.7 fL 80-94 [facility] Mean corpuscular hemoglobin (MCH) determinationOrdered By: Keven Etienne on 08-14-2024 MCH (RBC) [Entitic mass] 29.2 pg 27.0-32.[address] [facility] Monocyte percentageOrdered B y: Keven Etienne on 08-14-2024 Monocytes/100 WBC (Bld) 9.1 % 0-10 [facility] Neutrophil percentageOrdered By: frannynewportkeron Etienen on 08-14-2024 Neutrophils/100 WBC (Bld) 52.5 % 47-[address] [facility] No Panel InformationOrdered By: Keven Etienne on 08-14-2024 18 U/L <[address] [facility] Platelet countOrdered By: Edwar Etienne on 08-14-2024 Platelets (Bld) [#/Vol] 201 10*3/uL 150-[address] [facility] Potassium measurement (mass/ volume)Ordered By: Keven Etienne on 08-14-2024 Potassium (Unsp spec) [Mass/Vol] 3.9 mmol/L 3.3-5.[address] [facility] RBC Auto (Bld) [#/Vol]Ordere d By: Keven Etienne on 08-14-2024 RBC (Bld) [#/Vol] 4.32 10*6/uL Low 4.6-6.2 [facility] Serum creatinine measurement (mass/volume)Ordered By: Keven Etienne on 08-14-2024 Creatinine [Mass/Vol] 0.82 mg/dL 0.70-1.20 [facility] Serum globulin measurementOr dered By: Keven Etienne on 08-14-2024 Globulin (S) [Mass/Vol] 2.3 g/dL 2.2-4.2 [facility] Serum glucose measurement (m ass/volume)Ordered By: Keven Etienne on 08-14-2024 Glucose [Mass/Vol] 91 mg/dL 70-99 [facility] Serum or plasma alanine olmedo otransferase (ALT) measurementOrdered By: Keven Etienne on 08-14-2024 ALT [Catalytic activity/Vol] 22 U/L <[address] [facility] Serum or plasma albumin ratna urement (mass/volume)Ordered By: Keven Etienne on 08-14-2024 Albumin [Mass/Vol] 3.5 g/dL 3.4-4.8 [facility] Serum or plasma albumin/glob ulin mass ratioOrdered By: Keven Etienne on 08-14-2024 Albumin/Globulin [Mass ratio] 1.6 {ratio} 0.9-2.[address] [facility] Serum or plasma alkaline garry sphatase measurementOrdered By: Keven Etienne 08-14-2024 ALP [Catalytic activity/Vol] 113 U/L 40-[address] [facility] Serum or plasma calcium ratna urement (mass/volume)Ordered By: Keven Etienne 08-14-2024 Calcium [Mass/Vol] 9.1 mg/dL 7.6-11.0 [facility] Serum or plasma urea nitroge n measurement (mass/volume)Ordered By: Keven Etienne on 08-14-2024 Urea nitrogen [Mass/Vol] 12 mg/dL 4-[address] [facility] Sodium levelOrdered By: Rita Etienne on 08-14-2024 Sodium [Moles/Vol] 141 mmol/L 133-145 [facility] Total proteinOrdered By: Roby Etienne on 08-14-2024 Protein [Mass/Vol] 5.8 g/dL Low 5.9-8.4 [facility] White blood cell (WBC) count Ordered By: Keven Etienne on 08-14-2024 WBC (Bld) [#/Vol] 7.5 10*3/uL 4.4-11.0 [facility] 12 Lead EKGon 08-11-2024 12 Lead EKG Normal [facility] Absolute lymphocyte countOrd ered By: Keanu Zurita on 08-11-2024 Lymphocytes Auto (Unsp spec) [#/Vol] 1.80 10*3/uL 0.83-4.[address] [facility] Anion gap in Serum or Plasma Ordered By: Keanu Zurita on 08-11-2024 Anion gap [Moles/Vol] 11 mmol/L 5-15 [facility] Automated lymphocyte count a s percentage of total leukocytesOrdered By: Keanu Zurita on 08-11-2024 Lymphocytes/100 WBC Auto (Unsp spec) 24.2 % 19-[address] [facility] BUN/creatinine ratioOrdered By: Keanu Zurita on 08-11-2024 Urea nitrogen/Creatinine [Mass ratio] 16.9 mg/mg 10- [facility] Basic Metabolic Profile (BMP )on 08-11-2024 BUN/CRE 16.9 RATIO Normal - [facility] Comment on above: Performed By: #### L 500.2500, L100.0100 ####[facility] [address] [place], [address] Calcium [Mass/Vol] 9.0 mg/dL Normal 7.6-11.0 [facility] Comment on above: Performed By: #### L 500.2500, L100.0100 ####[facility] [address] [place], [address] Chloride [Moles/Vol] 102 mmol/L Normal 98-108 [facility] Comment on above: Performed By: #### L 500.2500, L100.0100 ####[facility] [address] [place], [address] CO2 [Moles/Vol] 25.3 mmol/L Normal 21.0-32.[address] [facility] Comment on above: Performed By: #### L 500.2500, L100.0100 ####[facility] [address] [place], [address] ECRCL 66.39 ml/min Normal 50-[address] [facility] Comment on above: Performed By: #### L 500.2500, L100.0100 ####[facility] [address] [place], [address] GAP 11 Normal 5-[address] [facility] Comment on above: Performed By: #### L 500.2500, L100.0100 ####[facility] [address] [place], [address] GFR/1.73 sq M.predicted among non-blacks MDRD (S/P/Bld) [Vol rate/Area] 87 mL/min/{1.73_m2} Normal >[address] [facility] Comment on above: Result Comment: mL/m in/1.73m2 CKD-EPI Creatinine Equation (2020) Performed By: #### L 500.2500, L100.0100 ####[facility] [address] [place], [address] Potassium [Moles/Vol] 4.2 mmol/L Normal 3.3-5.1 [facility] Comment on above: Result Comment: Hemo lysis present, Results??could be affected.?? Performed By: #### L 500.2500, L100.0100 ####[facility] [address] [place], [address] Sodium [Moles/Vol] 138 mmol/L Normal 133-145 [facility] Comment on above: Performed By: #### L 500.2500, L100.0100 ####[facility] [address] [place], [address] Creatinine [Mass/Vol] 0.83 mg/dL Normal 0.70-1.20 [facility] Comment on above: Performed By: #### L 500.2500, L100.0100 ####[facility] [address] [place], [address] Glucose [Mass/Vol] 98 mg/dL Normal 70-99 [facility] Comment on above: Performed By: #### L 500.2500, L100.0100 ####[facility] [address] [place], [address] Urea nitrogen [Mass/Vol] 14 mg/dL Normal 4-[address] [facility] Comment on above: Performed By: #### L 500.2500, L100.0100 ####[facility] [address] [place], [address] Basophil percentageOrdered B y: Keanu Zurita on 08-11-2024 Basophils/100 WBC (Bld) 0.5 % 0-1 [facility] Bilirubin Test strip Ql (U)O rdered By: Keanu Zurita on 08-11-2024 Bilirubin Ql (U) Negative Negative [facility] Brain/Head without Contrasto n 08-11-2024 Brain/Head without Contrast Normal [facility] CBC W/Diff, Automatedon 07-0 Absolute Lymph 1.80 X10 3/uL Normal 0.83-4.[address] [facility] Comment on above: Performed By: #### L 500.2500, L100.0100 ####[facility] [address] [place], [address] Absolute Neut 4.7 X10 3/uL Normal 2.0-7.[address] [facility] Comment on above: Performed By: #### L 500.2500, L100.0100 ####[facility] [address] [place], [address] Basophils/100 WBC (Bld) 0.5 % Normal 0-1 [facility] Comment on above: Performed By: #### L 500.2500, L100.0100 ####[facility] [address] [place], [address] Eosinophils/100 WBC (Bld) 2.6 % Normal 0-[address] [facility] Comment on above: Performed By: #### L 500.2500, L100.0100 ####[facility] [address] [place], [address] Erythrocyte distribution width (RBC) [Ratio] 12.6 % Normal 11.6-14.[address] [facility] Comment on above: Performed By: #### L 500.2500, L100.0100 ####[facility] [address] [place], [address] Hematocrit (Bld) [Volume fraction] 38.3 % Low 40-[address] [facility] Comment on above: Performed By: #### L 500.2500, L100.0100 ####[facility] [address] [place], [address] Hemoglobin (Bld) [Mass/Vol] 12.9 g/dL Low 13.0-16.[address] [facility] Comment on above: Performed By: #### L 500.2500, L100.0100 ####[facility] [address] [place], [address] IG% 0.400 Normal 0.0-0.[address] [facility] Comment on above: Result Comment: IG% - Immature Granulocytes (promyelocytes, myelocytes andmetamyelocytes) > 1% indicates that a LEFT SHIFT is Present. Performed By: #### L 500.2500, L100.0100 ####[facility] [address] [place], [address] Lymphocytes/100 WBC (Bld) 24.2 % Normal 19-[address] [facility] Comment on above: Performed By: #### L 500.2500, L100.0100 ####[facility] [address] [place], [address] MCH (RBC) [Entitic mass] 28.9 pg Normal 27.0-32.[address] [facility] Comment on above: Performed By: #### L 500.2500, L100.0100 ####[facility] [address] [place], [address] MCHC (RBC) [Mass/Vol] 33.7 g/dL Normal 32-36 [facility] Comment on above: Performed By: #### L 500.2500, L100.0100 ####[facility] [address] [place], [address] MCV (RBC) [Entitic vol] 85.7 fL Normal 80-94 [facility] Comment on above: Performed By: #### L 500.2500, L100.0100 ####[facility] [address] [place], [address] Monocytes/100 WBC (Bld) 9.1 % Normal 0-10 [facility] Comment on above: Performed By: #### L 500.2500, L100.0100 ####[facility] [address] [place], [address] Neutrophils/100 WBC (Bld) 63.2 % Normal 47-[address] [facility] Comment on above: Performed By: #### L 500.2500, L100.0100 ####[facility] [address] [place], [address] Nucleated RBC (Bld) [#/Vol] 0 10*3/uL Normal 0-[address] [facility] Comment on above: Performed By: #### L 500.2500, L100.0100 ####[facility] [address] [place], [address] Platelet mean volume (Bld) [Entitic vol] 8.5 fL Normal 6.2-12.[address] [facility] Comment on above: Performed By: #### L 500.2500, L100.0100 ####[facility] [address] [place], [address] Platelets (Bld) [#/Vol] 216 10*3/uL Normal 150-[address] [facility] Comment on above: Performed By: #### L 500.2500, L100.0100 ####[facility] [address] [place], [address] RBC (Bld) [#/Vol] 4.47 10*6/uL Low 4.6-6.2 [facility] Comment on above: Performed By: #### L 500.2500, L100.0100 ####[facility] [address] [place], [address] RDW SD 39.3 fl Normal 35.1-43.[address] [facility] Comment on above: Performed By: #### L 500.2500, L100.0100 ####[facility] [address] [place], [address] WBC (Bld) [#/Vol] 7.5 10*3/uL Normal 4.4-11.0 [facility] Comment on above: Performed By: #### L 500.2500, L100.0100 ####[facility] [address] [place], [address] Carbon dioxide, total [Moles /volume] in Central venous bloodOrdered By: Keanu Zurita on 08-11-2024 CO2 [Moles/Vol] 25.3 mmol/L 21.0-32.[address] [facility] Chloride assayOrdered By: Shane Zurita on 08-11-2024 Chloride [Moles/Vol] 102 mmol/L 98-108 [facility] Emergency Department Summary on 08-11-2024 Emergency Department Summary Normal [facility] Eosinophil percentageOrdered By: Keanu Zurita on 08-11-2024 Eosinophils/100 WBC (Bld) 2.6 % 0-[address] [facility] Erythrocyte distribution wid th ratioOrdered By: Keanu Zurita on 08-11-2024 Erythrocyte distribution width (RBC) [Ratio] 12.6 % 11.6-14.[address] [facility] Erythrocyte distribution wid th standard deviationOrdered By: Keanu Zurita on 08-11-2024 Erythrocyte distribution width (RBC) [Ratio] 39.3 fl 35.1-43.[address] [facility] Glomerular filtration rate ( GFR) estimation/1.73 sq m using serum, plasma, or whole bOrdered By: Keanu Zurita on 08-11-2024 GFR/1.73 sq M.predicted among non-blacks MDRD (S/P/Bld) [Vol rate/Area] 87 mL/min/{1.73_m2} >[address] [facility] Hematocrit Auto (Bld) [Volum e fraction]Ordered By: Keanu Zurita on 08-11-2024 Hematocrit (Bld) [Volume fraction] 38.3 % Low 40-[address] [facility] Hemoglobin measurementOrdere d By: Keanu Zurita on 08-11-2024 Hemoglobin (Bld) [Mass/Vol] 12.9 g/dL Low 13.0-16.[address] [facility] Immature granulocytes/100 WB C Auto (Bld)Ordered By: Keanu Zurita on 08-11-2024 Immature granulocytes/100 WBC (Bld) 0.400 % 0.0-0.[address] [facility] Ketones Test strip Ql (U)Ord ered By: Keanu Zurita on 08-11-2024 Ketones Ql (U) Negative Negative [facility] MCV (mean corpuscular volume ) determinationOrdered By: Keanu Zurita on 08-11-2024 MCV (RBC) [Entitic vol] 85.7 fL 80-94 [facility] Mean corpuscular hemoglobin (MCH) determinationOrdered By: Keanu Zurita on 08-11-2024 MCH (RBC) [Entitic mass] 28.9 pg 27.0-32.[address] [facility] Monocyte percentageOrdered B y: Keanu Zurita on 08-11-2024 Monocytes/100 WBC (Bld) 9.1 % 0-10 [facility] Mucus LM Ql (Urine sed)Order ed By: Keanu Zurita on 08-11-2024 Mucus Ql (Urine sed) 0 SEEN /hpf [facility] Neutrophil percentageOrdered By: Keanu Zurita on 08-11-2024 Neutrophils/100 WBC (Bld) 63.2 % 47-[address] [facility] Nitrite Test strip Ql (U)Ord ered By: Keanu Zurita on 08-11-2024 Nitrite Ql (U) Negative Negative [facility] [facility] Platelet countOrdered By: Shane Zurita on 08-11-2024 Platelets (Bld) [#/Vol] 216 10*3/uL 150-[address] [facility] Potassium measurement (mass/ volume)Ordered By: Keanu Zurita on 08-11-2024 Potassium (Unsp spec) [Mass/Vol] 4.2 mmol/L 3.3-5.[address] [facility] Protein Test strip Ql (U)Ord ered By: Keanu Zurita on 08-11-2024 Protein Ql (U) 15 mg/dl High Negative [facility] RBC Auto (Bld) [#/Vol]Ordere d By: Keanu Zurita on 08-11-2024 RBC (Bld) [#/Vol] 4.47 10*6/uL Low 4.6-6.2 [facility] Serum creatinine measurement (mass/volume)Ordered By: Keanu Zurita on 08-11-2024 Creatinine [Mass/Vol] 0.83 mg/dL 0.70-1.20 [facility] Serum glucose measurement (m ass/volume)Ordered By: Keanu Zurita on 08-11-2024 Glucose [Mass/Vol] 98 mg/dL 70-99 [facility] Serum or plasma calcium ratna urement (mass/volume)Ordered By: Keanu Zurita on 08-11-2024 Calcium [Mass/Vol] 9.0 mg/dL 7.6-11.0 [facility] Serum or plasma urea nitroge n measurement (mass/volume)Ordered By: Keanu Zurita on 08-11-2024 Urea nitrogen [Mass/Vol] 14 mg/dL 4-19 [facility] Sodium levelOrdered By: Keanu Zurita on 08-11-2024 Sodium [Moles/Vol] 138 mmol/L 133-145 [facility] Squamous epithelial cells de tection in urine sediment by light microscopyOrdered By: Keanu Zurita on 08-11-2024 Epithelial cells.squamous LM Ql (Urine sed) 0 SEEN /hpf 0-[address] [facility] Urinalysis, Completeon 08-11 BACTERIA 0 SEEN Normal None Seen [facility] Comment on above: Order Comment: CLEAN CATCH Performed By: #### L 400.0001 ####[facility] [address] [facility] [address] EPI,SQUAMOUS 0 SEEN Normal 0-[address] [facility] Comment on above: Order Comment: CLEAN CATCH Performed By: #### L 400.0001 ####[facility] [address] [place], [address] Mucus Ql (Urine sed) 0 SEEN Normal [facility] Comment on above: Order Comment: CLEAN CATCH Performed By: #### L 400.0001 ####[facility] [address] [place], [address] RBC 0 SEEN Normal 0-[address] [facility] Comment on above: Order Comment: CLEAN CATCH Performed By: #### L 400.0001 ####[facility] [address] [place], [address] WBC 0 SEEN Normal 0-[address] [facility] Comment on above: Order Comment: CLEAN CATCH Performed By: #### L 400.0001 ####[facility] [address] [facility] [address] Urine clarityOrdered By: Eleanor Zurita on 08-11-2024 Clarity (U) Clear Clear [facility] Urine color determinationOrd ered By: Keanu Zurita on 08-11-2024 Color (U) YELLOW Yellow [facility] Urine glucose detectionOrder ed By: Keanu Zurita on 08-11-2024 Glucose Ql (U) Normal mg/dl Normal [facility] Urine leukocyte esterase det ection by dipstickOrdered By: Keanu Zurita on 08-11-2024 Leukocyte esterase Test strip Ql (U) Negative Negative [facility] Urine pHOrdered By: Keanu adrian on 08-11-2024 pH (U) 6.0 [pH] 5.0 - 8.[address] [facility] Urine sediment bacteria coun t by microscopy (number/high power field)Ordered By: Keanu Zurita on 08-11-2024 Bacteria LM.HPF (Urine sed) [#/Area] 0 /[HPF] None Seen [facility] Urine specific gravity measu rementOrdered By: Keanu Zurita on 08-11-2024 Specific gravity (U) [Rel density] 1.015 1.002-1.[address] [facility] Urine urobilinogen measureme ntOrdered By: Keanu Zurita on 08-11-2024 Urobilinogen Ql (U) 1 mg/dl High Normal [facility] White blood cell (WBC) count Ordered By: Keanu Zurita on 08-11-2024 WBC (Bld) [#/Vol] 7.5 10*3/uL 4.4-11.0 [facility] White blood cell countOrdere d By: Keanu Zurita on 08-11-2024 White blood cell count 0 SEEN /hpf 0-5 [facility] Absolute lymphocyte countOrd ered By: Yu Bradley on 08-06-2024 Lymphocytes Auto (Unsp spec) [#/Vol] 2.53 10*3/uL 0.83-4.[address] [facility] Anion gap in Serum or Plasma Ordered By: Yu Bradley on 08-06-2024 Anion gap [Moles/Vol] 10 mmol/L 5-15 [facility] Automated lymphocyte count a s percentage of total leukocytesOrdered By: Yu Bradley on 08-06-2024 Lymphocytes/100 WBC Auto (Unsp spec) 36.2 % 19-[address] [facility] BUN/creatinine ratioOrdered By: Yu Bradley on 08-06-2024 Urea nitrogen/Creatinine [Mass ratio] 15.7 mg/mg 10-[address] [facility] Basic Metabolic Profile (BMP )on 08-06-2024 BUN/CRE 15.7 RATIO Normal 10-[address] [facility] Comment on above: Performed By: #### L 100.0100, L500.2500, L509.6001 ####[facility] [address] [place], [address] Calcium [Mass/Vol] 8.7 mg/dL Normal 7.6-11.0 [facility] Comment on above: Performed By: #### L 100.0100, L500.2500, L509.6001 ####[facility] [address] [place], [address] Chloride [Moles/Vol] 106 mmol/L Normal 98-108 [facility] Comment on above: Performed By: #### L 100.0100, L500.2500, L509.6001 ####[facility] [address] [place], [address] CO2 [Moles/Vol] 23.8 mmol/L Normal 21.0-32.[address] [facility] Comment on above: Performed By: #### L 100.0100, L500.2500, L509.6001 ####[facility] [address] [place], [address] Creatinine [Mass/Vol] 0.91 mg/dL Normal 0.70-1.20 [facility] Comment on above: Performed By: #### L 100.0100, L500.2500, L509.6001 ####[facility] [address] [place], [address] ECRCL 60.55 ml/min Normal 50-[address] [facility] Comment on above: Performed By: #### L 100.0100, L500.2500, L509.6001 ####[facility] [address] [place], [address] GAP 10 Normal 5-[address] [facility] Comment on above: Performed By: #### L 100.0100, L500.2500, L509.6001 ####[facility] [address] [place], [address] GFR/1.73 sq M.predicted among non-blacks MDRD (S/P/Bld) [Vol rate/Area] 85 mL/min/{1.73_m2} Normal >[address] [facility] Comment on above: Result Comment: mL/m in/1.73m2 CKD-EPI Creatinine Equation (2020) Performed By: #### L 100.0100, L500.2500, L509.6001 ####[facility] [address] [place], [address] Glucose [Mass/Vol] 93 mg/dL Normal 70-99 [facility] Comment on above: Performed By: #### L 100.0100, L500.2500, L509.6001 ####[facility] [address] [place], [address] Potassium [Moles/Vol] 4.1 mmol/L Normal 3.3-5.1 [facility] Comment on above: Performed By: #### L 100.0100, L500.2500, L509.6001 ####[facility] [address] [place], [address] Sodium [Moles/Vol] 140 mmol/L Normal 133-145 [facility] Comment on above: Performed By: #### L 100.0100, L500.2500, L509.6001 ####[facility] [address] [place], [address] Urea nitrogen [Mass/Vol] 14 mg/dL Normal 4-[address] [facility] Comment on above: Performed By: #### L 100.0100, L500.2500, L509.6001 ####[facility] [address] [place], [address] Basophil percentageOrdered B y: Yu Bradley on 08-06-2024 Basophils/100 WBC (Bld) 0.6 % 0-1 [facility] CBC W/Diff, Automatedon 06-2 -2024 Absolute Lymph 2.53 X10 3/uL Normal 0.83-4.[address] [facility] Comment on above: Performed By: #### L 100.0100, L500.2500, L509.6001 ####[facility] [address] [place], [address] Absolute Neut 3.4 X10 3/uL Normal 2.0-7.[address] [facility] Comment on above: Performed By: #### L 100.0100, L500.2500, L509.6001 ####[facility] [address] [place], [address] Basophils/100 WBC (Bld) 0.6 % Normal 0-1 [facility] Comment on above: Performed By: #### L 100.0100, L500.2500, L509.6001 ####[facility] [address] [place], [address] Eosinophils/100 WBC (Bld) 4.2 % Normal 0-[address] [facility] Comment on above: Performed By: #### L 100.0100, L500.2500, L509.6001 ####[facility] [address] [place], [address] Erythrocyte distribution width (RBC) [Ratio] 12.8 % Normal 11.6-14.[address] [facility] Comment on above: Performed By: #### L 100.0100, L500.2500, L509.6001 ####[facility] [address] [place], [address] Hematocrit (Bld) [Volume fraction] 34.8 % Low 40-[address] [facility] Comment on above: Performed By: #### L 100.0100, L500.2500, L509.6001 ####[facility] [address] [place], [address] Hemoglobin (Bld) [Mass/Vol] 11.6 g/dL Low 13.0-16.[address] [facility] Comment on above: Performed By: #### L 100.0100, L500.2500, L509.6001 ####[facility] [address] [place], [address] IG% 0.300 Normal 0.0-0.[address] [facility] Comment on above: Result Comment: IG% - Immature Granulocytes (promyelocytes, myelocytes andmetamyelocytes) > 1% indicates that a LEFT SHIFT is Present. Performed By: #### L 100.0100, L500.2500, L509.6001 ####[facility] [address] [place], [address] Lymphocytes/100 WBC (Bld) 36.2 % Normal 19-[address] [facility] Comment on above: Performed By: #### L 100.0100, L500.2500, L509.6001 ####[facility] [address] [place], [address] MCH (RBC) [Entitic mass] 28.9 pg Normal 27.0-32.[address] [facility] Comment on above: Performed By: #### L 100.0100, L500.2500, L509.6001 ####[facility] [address] [place], [address] MCHC (RBC) [Mass/Vol] 33.3 g/dL Normal 32-36 [facility] Comment on above: Performed By: #### L 100.0100, L500.2500, L509.6001 ####[facility] [address] [place], [address] MCV (RBC) [Entitic vol] 86.8 fL Normal 80-94 [facility] Comment on above: Performed By: #### L 100.0100, L500.2500, L509.6001 ####[facility] [address] [place], [address] Monocytes/100 WBC (Bld) 10.5 % High 0-10 [facility] Comment on above: Performed By: #### L 100.0100, L500.2500, L509.6001 ####[facility] [address] [place], [address] Neutrophils/100 WBC (Bld) 48.2 % Normal 47-[address] [facility] Comment on above: Performed By: #### L 100.0100, L500.2500, L509.6001 ####[facility] [address] [place], [address] Nucleated RBC (Bld) [#/Vol] 0 10*3/uL Normal 0-[address] [facility] Comment on above: Performed By: #### L 100.0100, L500.2500, L509.6001 ####[facility] [address] [place], [address] Platelet mean volume (Bld) [Entitic vol] 8.6 fL Normal 6.2-12.[address] [facility] Comment on above: Performed By: #### L 100.0100, L500.2500, L509.6001 ####[facility] [address] [place], [address] Platelets (Bld) [#/Vol] 186 10*3/uL Normal 150-[address] [facility] Comment on above: Performed By: #### L 100.0100, L500.2500, L509.6001 ####[facility] [address] [place], [address] RBC (Bld) [#/Vol] 4.01 10*6/uL Low 4.6-6.2 [facility] Comment on above: Performed By: #### L 100.0100, L500.2500, L509.6001 ####[facility] [address] [place], [address] RDW SD 40.7 fl Normal 35.1-43.[address] [facility] Comment on above: Performed By: #### L 100.0100, L500.2500, L509.6001 ####[facility] [address] [place], [address] WBC (Bld) [#/Vol] 7.0 10*3/uL Normal 4.4-11.0 [facility] Comment on above: Performed By: #### L 100.0100, L500.2500, L509.6001 ####[facility] [address] [place], [address] Carbon dioxide, total [Moles /volume] in Central venous bloodOrdered By: Yu Bradley on 08-06-2024 CO2 [Moles/Vol] 23.8 mmol/L 21.0-32.[address] [facility] Chloride assayOrdered By: Yady Bradley on 08-06-2024 Chloride [Moles/Vol] 106 mmol/L 98-108 [facility] Eosinophil percentageOrdered By: Yu Bradley on 08-06-2024 Eosinophils/100 WBC (Bld) 4.2 % 0-[address] [facility] Erythrocyte distribution wid th ratioOrdered By: Yu Bradley on 08-06-2024 Erythrocyte distribution width (RBC) [Ratio] 12.8 % 11.6-14.[address] [facility] Erythrocyte distribution wid th standard deviationOrdered By: Yu Bradley on 08-06-2024 Erythrocyte distribution width (RBC) [Ratio] 40.7 fl 35.1-43.[address] [facility] Glomerular filtration rate ( GFR) estimation/1.73 sq m using serum, plasma, or whole bOrdered By: Yu Bradley on 08-06-2024 GFR/1.73 sq M.predicted among non-blacks MDRD (S/P/Bld) [Vol rate/Area] 85 mL/min/{1.73_m2} >[address] [facility] Hematocrit Auto (Bld) [Volum e fraction]Ordered By: Yu Bradley on 08-06-2024 Hematocrit (Bld) [Volume fraction] 34.8 % Low 40-[address] [facility] Hemoglobin measurementOrdere d By: Yu Bradley on 08-06-2024 Hemoglobin (Bld) [Mass/Vol] 11.6 g/dL Low 13.0-16.[address] [facility] Immature granulocytes/100 WB C Auto (Bld)Ordered By: Yu Bradley on 08-06-2024 Immature granulocytes/100 WBC (Bld) 0.300 % 0.0-0.[address] [facility] L509.6001on 08-06-2024 CORTISOL 16.30 ug/dL Normal 6.02-18.[address] [facility] Comment on above: Performed By: #### L 100.0100, L500.2500, L509.6001 ####[facility] [address] [place], [address] MCV (mean corpuscular volume ) determinationOrdered By: Yu Bradley on 08-06-2024 MCV (RBC) [Entitic vol] 86.8 fL 80-94 [facility] Mean corpuscular hemoglobin (MCH) determinationOrdered By: Yu Bradley on 08-06-2024 MCH (RBC) [Entitic mass] 28.9 pg 27.0-32.[address] [facility] Monocyte percentageOrdered B y: Yu Bradley on 08-06-2024 Monocytes/100 WBC (Bld) 10.5 % High 0-10 [facility] Neutrophil percentageOrdered By: Yu Bradley on 08-06-2024 Neutrophils/100 WBC (Bld) 48.2 % 47-[address] [facility] Platelet countOrdered By: Yady Bradley on 08-06-2024 Platelets (Bld) [#/Vol] 186 10*3/uL 150-[address] [facility] Potassium measurement (mass/ volume)Ordered By: Yu Bradley on 08-06-2024 Potassium (Unsp spec) [Mass/Vol] 4.1 mmol/L 3.3-5.[address] [facility] RBC Auto (Bld) [#/Vol]Ordere d By: Yu Bradley on 08-06-2024 RBC (Bld) [#/Vol] 4.01 10*6/uL Low 4.6-6.2 [facility] Serum creatinine measurement (mass/volume)Ordered By: Yu Bradley on 08-06-2024 Creatinine [Mass/Vol] 0.91 mg/dL 0.70-1.20 [facility] Serum glucose measurement (m ass/volume)Ordered By: Yu Bradley on 08-06-2024 Glucose [Mass/Vol] 93 mg/dL 70-99 [facility] Serum or plasma calcium ratna urement (mass/volume)Ordered By: Yu Bradley on 08-06-2024 Calcium [Mass/Vol] 8.7 mg/dL 7.6-11.0 [facility] Serum or plasma cortisol darline surement (mass/volume)Ordered By: Yu Bradley on 08-06-2024 Cortisol [Mass/Vol] 16.30 ug/dL 6.02-18.40 [facility] Serum or plasma urea nitroge n measurement (mass/volume)Ordered By: Yu Bradley on 08-06-2024 Urea nitrogen [Mass/Vol] 14 mg/dL 4-[address] [facility] Sodium levelOrdered By: Kj Bradley on 08-06-2024 Sodium [Moles/Vol] 140 mmol/L 133-145 [facility] White blood cell (WBC) count Ordered By: Yu Bradley on 08-06-2024 WBC (Bld) [#/Vol] 7.0 10*3/uL 4.4-11.0 [facility] Absolute lymphocyte countOrd ered By: Kayode Woods on 08-05-2024 Lymphocytes Auto (Unsp spec) [#/Vol] 2.63 10*3/uL 0.83-4.[address] [facility] Anion gap in Serum or Plasma Ordered By: Kayode Woods on 08-05-2024 Anion gap [Moles/Vol] 12 mmol/L 5-15 [facility] Automated blood erythrocyte countOrdered By: Kayode Woods on 08-05-2024 RBC (Bld) [#/Vol] 4.22 10*6/uL Low 4.6-6.2 [facility] Comment on above: Performed By: #### L 503.6005, L501.2450, L100.0100, L500.4050, L501.4021 ####[facility] [address] [place], [address] Automated blood hematocrit ( percentage)Ordered By: Kayode Woods on 08-05-2024 Hematocrit (Bld) [Volume fraction] 37.0 % Low 40-[address] [facility] Comment on above: Performed By: #### L 503.6005, L501.2450, L100.0100, L500.4050, L501.4021 ####[facility] [address] [place], [address] Automated lymphocyte count a s percentage of total leukocytesOrdered By: Kayode Woods on 08-05-2024 Lymphocytes/100 WBC Auto (Unsp spec) 31.4 % 19-[address] [facility] BUN/creatinine ratioOrdered By: Kayode Woods on 08-05-2024 Urea nitrogen/Creatinine [Mass ratio] 21.1 mg/mg High 10-[address] [facility] Basophil percentageOrdered B y: Kayode Woods on 08-05-2024 Basophils/100 WBC (Bld) 0.5 % Normal 0-1 [facility] Comment on above: Performed By: #### L 503.6005, L501.2450, L100.0100, L500.4050, L501.4021 ####[facility] [address] [place], [place], [address] Bilirubin Test strip Ql (U)O rdered By: Kayode Woods on 08-05-2024 Bilirubin Ql (U) Negative Negative [facility] Bilirubin, totalOrdered By: Kayode Woods on 08-05-2024 Bilirubin [Mass/Vol] 0.41 mg/dL 0.00-1.30 [facility] Comment on above: Performed By: #### L 503.6005, L501.2450, L100.0100, L500.4050, L501.4021 ####[facility] [address] [place], [address] Brain/Head without Contrasto n 08-05-2024 Brain/Head without Contrast Normal [facility] CBC W/Diff, Automatedon 06- Absolute Lymph 2.63 X10 3/uL Normal 0.83-4.[address] [facility] Comment on above: Performed By: #### L 503.6005, L501.2450, L100.0100, L500.4050, L501.4021 ####[facility] [address] [place], [address] Absolute Neut 4.8 X10 3/uL Normal 2.0-7.[address] [facility] Comment on above: Performed By: #### L 503.6005, L501.2450, L100.0100, L500.4050, L501.4021 ####[facility] [address] [place], [address] IG% 0.200 Normal 0.0-0.[address] [facility] Comment on above: Result Comment: IG% - Immature Granulocytes (promyelocytes, myelocytes andmetamyelocytes) > 1% indicates that a LEFT SHIFT is Present. Performed By: #### L 503.6005, L501.2450, L100.0100, L500.4050, L501.4021 ####[facility] [address] [place], [address] Lymphocytes/100 WBC (Bld) 31.4 % Normal 19-[address] [facility] Comment on above: Performed By: #### L 503.6005, L501.2450, L100.0100, L500.4050, L501.4021 ####[facility] [address] [place], [address] MCHC (RBC) [Mass/Vol] 33.2 g/dL Normal 32-36 [facility] Comment on above: Performed By: #### L 503.6005, L501.2450, L100.0100, L500.4050, L501.4021 ####[facility] [address] [place], [address] Nucleated RBC (Bld) [#/Vol] 0 10*3/uL Normal 0-[address] [facility] Comment on above: Performed By: #### L 503.6005, L501.2450, L100.0100, L500.4050, L501.4021 ####[facility] [address] [place], [address] Platelet mean volume (Bld) [Entitic vol] 8.7 fL Normal 6.2-12.[address] [facility] Comment on above: Performed By: #### L 503.6005, L501.2450, L100.0100, L500.4050, L501.4021 ####[facility] [address] [place], [address] RDW SD 41.0 fl Normal 35.1-43.[address] [facility] Comment on above: Performed By: #### L 503.6005, L501.2450, L100.0100, L500.4050, L501.4021 ####[facility] [address] [place], [address] Carbon dioxide, total [Moles /volume] in Central venous bloodOrdered By: Kayode Woods on 08-05-2024 CO2 [Moles/Vol] 23.8 mmol/L Normal 21.0-32.[address] [facility] Comment on above: Performed By: #### L 503.6005, L501.2450, L100.0100, L500.4050, L501.4021 ####[facility] [address] [place], [address] Chloride assayOrdered By: Tan Woods on 08-05-2024 Chloride [Moles/Vol] 103 mmol/L Normal 98-108 [facility] Comment on above: Performed By: #### L 503.6005, L501.2450, L100.0100, L500.4050, L501.4021 ####[facility] [address] [place], [address] Comprehensive Metabolic Prof annemarie 08-05-2024 ALK PHOS 120 U/L Normal 40-[address] [facility] Comment on above: Performed By: #### L 503.6005, L501.2450, L100.0100, L500.4050, L501.4021 ####[facility] [address] [place], [address] AST [Catalytic activity/Vol] 25 U/L Normal <=[address] [facility] Comment on above: Performed By: #### L 503.6005, L501.2450, L100.0100, L500.4050, L501.4021 ####[facility] [address] [place], [address] BUN/CRE 21.1 RATIO High 10-[address] [facility] Comment on above: Performed By: #### L 503.6005, L501.2450, L100.0100, L500.4050, L501.4021 ####[facility] [address] [place], [address] ECRCL 63.33 ml/min Normal 50-[address] [facility] Comment on above: Performed By: #### L 503.6005, L501.2450, L100.0100, L500.4050, L501.4021 ####[facility] [address] [place], [address] GAP 12 Normal 5-[address] [facility] Comment on above: Performed By: #### L 503.6005, L501.2450, L100.0100, L500.4050, L501.4021 ####[facility] [address] [place], [address] Potassium [Moles/Vol] 4.3 mmol/L Normal 3.3-5.1 [facility] Comment on above: Performed By: #### L 503.6005, L501.2450, L100.0100, L500.4050, L501.4021 ####[facility] [address] [place], [address] T PROT 6.4 g/dL Normal 5.9-8.[address] [facility] Comment on above: Performed By: #### L 503.6005, L501.2450, L100.0100, L500.4050, L501.4021 ####[facility] [address] [place], [address] Emergency Department Summary on 08-05-2024 Emergency Department Summary Normal [facility] Eosinophil percentageOrdered By: Kayode Woods on 08-05-2024 Eosinophils/100 WBC (Bld) 2.0 % Normal 0-[address] [facility] Comment on above: Performed By: #### L 503.6005, L501.2450, L100.0100, L500.4050, L501.4021 ####[facility] [address] [place], [address] Erythrocyte distribution wid th ratioOrdered By: Kayode Woods on 08-05-2024 Erythrocyte distribution width (RBC) [Ratio] 12.9 % Normal 11.6-14.[address] [facility] Comment on above: Performed By: #### L 503.6005, L501.2450, L100.0100, L500.4050, L501.4021 ####[facility] [address] [place], [address] Erythrocyte distribution wid th standard deviationOrdered By: Kayode Woods on 08-05-2024 Erythrocyte distribution width (RBC) [Ratio] 41.0 fl 35.1-43.[address] [facility] Glomerular filtration rate ( GFR) estimation/1.73 sq m using serum, plasma, or whole bOrdered By: Kayode Woods on 08-05-2024 GFR/1.73 sq M.predicted among non-blacks MDRD (S/P/Bld) [Vol rate/Area] 86 mL/min/{1.73_m2} Normal >[address] [facility] Comment on above: Result Comment: mL/m in/1.73m2 CKD-EPI Creatinine Equation (2020) Performed By: #### L 503.6005, L501.2450, L100.0100, L500.4050, L501.4021 ####[facility] [address] [place], [address] H AND P Exam - Hospitaliston 08-05-2024 H&P Exam - Hospitalist Normal [facility] Hemoglobin measurementOrdere d By: Kayode Woods on 08-05-2024 Hemoglobin (Bld) [Mass/Vol] 12.3 g/dL Low 13.0-16.[address] [facility] Comment on above: Performed By: #### L 503.6005, L501.2450, L100.0100, L500.4050, L501.4021 ####[facility] [facility] [address] [place], [address] Immature granulocytes/100 WB C Auto (Bld)Ordered By: Kayode Woods on 08-05-2024 Immature granulocytes/100 WBC (Bld) 0.200 % 0.0-0.[address] [facility] Ketones Test strip Ql (U)Ord ered By: Kayode Woods on 08-05-2024 Ketones Ql (U) Negative Negative [facility] L499.0042on 08-05-2024 Trop T High Sen 36 ng/L High <=[address] [facility] Comment on above: Performed By: #### L 499.0042 ####[facility] [address] [place], [address] L499.0043on 08-05-2024 Trop T High Sen 36 ng/L High <=[address] [facility] Comment on above: Performed By: #### L 499.0043 ####[facility] [address] [place], [address] L501.4021on 08-05-2024 Trop T High Sen 39 ng/L High <=[address] [facility] Comment on above: Performed By: #### L 503.6005, L501.2450, L100.0100, L500.4050, L501.4021 ####[facility] [address] [place], [address] Lactic Acidon 08-05-2024 Lactate [Moles/Vol] 1.3 mmol/L Normal 0.0-2.0 [facility] Comment on above: Order Comment: Y Performed By: #### L 503.6005, L501.2450, L100.0100, L500.4050, L501.4021 ####[facility] [address] [place], [address] Lipaseon 08-05-2024 Lipase [Catalytic activity/Vol] 15 U/L Normal 13-[address] [facility] Comment on above: Result Comment: [place] byrd note:LIPASE revised reference range effective 22.New Lipase methodology. Expected to produce lower valuesthan the previous assay method.NEW Reference Range: 13 - 75 U/L Performed By: #### L 503.6005, L501.2450, L100.0100, L500.4050, L501.4021 ####[facility] [address] [place], [address] MCV (mean corpuscular volume ) determinationOrdered By: Kayode Woods on 08-05-2024 MCV (RBC) [Entitic vol] 87.7 fL Normal 80-94 [facility] Comment on above: Performed By: #### L 503.6005, L501.2450, L100.0100, L500.4050, L501.4021 ####[facility] [address] [place], [address] Mean corpuscular hemoglobin (MCH) determinationOrdered By: Kayode Woods on 08-05-2024 MCH (RBC) [Entitic mass] 29.1 pg Normal 27.0-32.[address] [facility] Comment on above: Performed By: #### L 503.6005, L501.2450, L100.0100, L500.4050, L501.4021 ####[facility] [address] [place], [place], [address] Monocyte percentageOrdered B y: Kayode Woods on 08-05-2024 Monocytes/100 WBC (Bld) 8.2 % Normal 0-10 [facility] Comment on above: Performed By: #### L 503.6005, L501.2450, L100.0100, L500.4050, L501.4021 ####[facility] [address] [place], [place], [id number] Mucus LM Ql (Urine sed)Order ed By: Kayode Woods on 08-05-2024 Mucus Ql (Urine sed) 0 SEEN /hpf [facility] Neutrophil percentageOrdered By: Kayode Woods on 08-05-2024 Neutrophils/100 WBC (Bld) 57.7 % Normal 47-[address] [facility] Comment on above: Performed By: #### L 503.6005, L501.2450, L100.0100, L500.4050, L501.4021 ####[facility] [address] [place], [place], [address] Nitrite Test strip Ql (U)Ord ered By: Kayode Woods on 08-05-2024 Nitrite Ql (U) Negative Negative [facility] No Panel InformationOrdered By: Kayode Woods on 08-05-2024 25 U/L <[address] [facility] Platelet countOrdered By: Tan Woods on 08-05-2024 Platelets (Bld) [#/Vol] 208 10*3/uL Normal 150-[address] [facility] Comment on above: Performed By: #### L 503.6005, L501.2450, L100.0100, L500.4050, L501.4021 ####[facility] [address] [place], [address] Potassium measurement (mass/ volume)Ordered By: Kayode Woods on 08-05-2024 Potassium (Unsp spec) [Mass/Vol] 4.3 mmol/L 3.3-5.[address] [facility] Protein Test strip Ql (U)Ord ered By: Kayode Woods on 08-05-2024 Protein Ql (U) Negative Negative [facility] Serum creatinine measurement (mass/volume)Ordered By: Kayode Woods on 08-05-2024 Creatinine [Mass/Vol] 0.87 mg/dL Normal 0.70-1.20 [facility] Comment on above: Performed By: #### L 503.6005, L501.2450, L100.0100, L500.4050, L501.4021 ####[facility] [address] [place], [address] Serum globulin measurementOr dered By: Kayode Woods on 08-05-2024 Globulin (S) [Mass/Vol] 2.4 g/dL 2.2-4.2 [facility] Comment on above: Performed By: #### L 503.6005, L501.2450, L100.0100, L500.4050, L501.4021 ####[facility] [address] [place], [address] Serum glucose measurement (m ass/volume)Ordered By: Kayode Woods on 08-05-2024 Glucose [Mass/Vol] 93 mg/dL Normal 70-99 [facility] Comment on above: Performed By: #### L 503.6005, L501.2450, L100.0100, L500.4050, L501.4021 ####[facility] [address] [place], [address] Serum or plasma alanine olmedo otransferase (ALT) measurementOrdered By: Kayode Woods on 08-05-2024 ALT [Catalytic activity/Vol] 23 U/L <[address] [facility] Comment on above: Performed By: #### L 503.6005, L501.2450, L100.0100, L500.4050, L501.4021 ####[facility] [address] [place], [address] Serum or plasma albumin rtana urement (mass/volume)Ordered By: Kayode Woods on 08-05-2024 Albumin [Mass/Vol] 4.0 g/dL 3.4-4.8 [facility] Comment on above: Performed By: #### L 503.6005, L501.2450, L100.0100, L500.4050, L501.4021 ####[facility] [address] [place], [address] Serum or plasma albumin/glob ulin mass ratioOrdered By: Kayode Woods on 08-05-2024 Albumin/Globulin [Mass ratio] 1.7 {ratio} 0.9-2.[address] [facility] Comment on above: Performed By: #### L 503.6005, L501.2450, L100.0100, L500.4050, L501.4021 ####[facility] [address] [place], [address] Serum or plasma alkaline garry sphatase measurementOrdered By: Kayode Woods on 08-05-2024 ALP [Catalytic activity/Vol] 120 U/L 40-[address] [facility] Serum or plasma calcium ratna urement (mass/volume)Ordered By: Kayode Woods on 08-05-2024 Calcium [Mass/Vol] 9.4 mg/dL Normal 7.6-11.0 [facility] Comment on above: Performed By: #### L 503.6005, L501.2450, L100.0100, L500.4050, L501.4021 ####[facility] [address] [place], [address] Serum or plasma urea nitroge n measurement (mass/volume)Ordered By: Kayode Woods on 08-05-2024 Urea nitrogen [Mass/Vol] 18 mg/dL Normal 4-[address] [facility] Comment on above: Performed By: #### L 503.6005, L501.2450, L100.0100, L500.4050, L501.4021 ####[facility] [address] [place], [address] Sodium levelOrdered By: Edgar Woods on 08-05-2024 Sodium [Moles/Vol] 138 mmol/L Normal 133-145 [facility] Comment on above: Performed By: #### L 503.6005, L501.2450, L100.0100, L500.4050, L501.4021 ####[facility] [address] [place], [address] Spine Cervical without Contr ason 08-05-2024 Spine Cervical without Contras Normal [facility] Squamous epithelial cells de tection in urine sediment by light microscopyOrdered By: Kayode Woods on 08-05-2024 Epithelial cells.squamous LM Ql (Urine sed) 0 SEEN /hpf 0-[address] [facility] Total proteinOrdered By: Mayela Woods on 08-05-2024 Protein [Mass/Vol] 6.4 g/dL 5.9-8.4 [facility] Troponin T.cardiac [Mass/vol ume] in Serum or Plasma by High sensitivity methodOrdered By: Kayode Woods on 08-05-2024 Troponin T.cardiac High sensitivity method [Mass/Vol] 36 ng/L High <[address] [facility] Troponin T.cardiac High sensitivity method [Mass/Vol] 39 ng/L High <[address] [facility] Urinalysis, Completeon 08-05 BACTERIA 0 SEEN Normal None Seen [facility] Comment on above: Order Comment: JUDE CTOR TO SPECIFY Performed By: #### L 400.0001 ####[facility] [address] [place], [place], [id number] EPI,SQUAMOUS 0 SEEN Normal 0-[address] [facility] Comment on above: Order Comment: JUDE CTOR TO SPECIFY Performed By: #### L 400.0001 ####[facility] [address] [place], [address] Mucus Ql (Urine sed) 0 SEEN Normal [facility] Comment on above: Order Comment: JUDE CTOR TO SPECIFY Performed By: #### L 400.0001 ####[facility] [address] [place], [address] RBC 0 SEEN Normal 0-[address] [facility] Comment on above: Order Comment: JUDE CTOR TO SPECIFY Performed By: #### L 400.0001 ####[facility] [address] [place], [address] WBC 0 SEEN Normal 0-[address] [facility] Comment on above: Order Comment: JUDE CTOR TO SPECIFY Performed By: #### L 400.0001 ####[facility] [address] [place], [place], [address] Urine clarityOrdered By: Mayela Woods on 08-05-2024 Clarity (U) Clear Clear [facility] Urine color determinationOrd ered By: Kayode Woods on 08-05-2024 Color (U) Yellow Yellow [facility] Urine glucose detectionOrder ed By: Kayode Woods on 08-05-2024 Glucose Ql (U) Normal mg/dl Normal [facility] Urine leukocyte esterase det ection by dipstickOrdered By: Kayode Woods on 08-05-2024 Leukocyte esterase Test strip Ql (U) Negative Negative [facility] Urine pHOrdered By: Kayode maxwell on 08-05-2024 pH (U) 7.0 [pH] 5.0 - 8.[address] [facility] Urine sediment bacteria coun t by microscopy (number/high power field)Ordered By: Kayode Woods on 08-05-2024 Bacteria LM.HPF (Urine sed) [#/Area] 0 /[HPF] None Seen [facility] Urine specific gravity measu rementOrdered By: Kayode Woods on 08-05-2024 Specific gravity (U) [Rel density] 1.010 1.002-1.[address] [facility] Urine urobilinogen measureme ntOrdered By: Kayode Woods on 08-05-2024 Urobilinogen Ql (U) Normal mg/dl Normal [facility] White blood cell (WBC) count Ordered By: Kayode Woods on 08-05-2024 WBC (Bld) [#/Vol] 8.4 10*3/uL Normal 4.4-11.0 [facility] Comment on above: Performed By: #### L 503.6005, L501.2450, L100.0100, L500.4050, L501.4021 ####[facility] [address] [place], [place], [id number] White blood cell countOrdere d By: Kayode Woods on 08-05-2024 White blood cell count 0 SEEN /hpf 0-5 [facility] Cerv Spine 2 or 3 Viewson Cerv Spine 2 or 3 Views Normal [facility] Orthopedic Visit Reporton Orthopedic Visit Report Normal [facility] Absolute lymphocyte countOrd ered By: Kwabena Menjivar on 07-20-2024 Lymphocytes Auto (Unsp spec) [#/Vol] 2.92 10*3/uL 0.83-4.[address] [facility] Anion gap in Serum or Plasma Ordered By: Kwabena Menjivar on 07-20-2024 Anion gap [Moles/Vol] 13 mmol/L 5-15 [facility] Automated lymphocyte count a s percentage of total leukocytesOrdered By: Kwabena Menjivar on 07-20-2024 Lymphocytes/100 WBC Auto (Unsp spec) 35.4 % 19-[address] [facility] BUN/creatinine ratioOrdered By: Kwabena Menjivar on 07-20-2024 Urea nitrogen/Creatinine [Mass ratio] 12.9 mg/mg 10-[address] [facility] Basophil percentageOrdered B y: Kwabena Menjivar on 07-20-2024 Basophils/100 WBC (Bld) 0.6 % 0-1 [facility] Bilirubin, totalOrdered By: Kwabena Menjivar on 07-20-2024 Bilirubin [Mass/Vol] 0.44 mg/dL 0.00-1.30 [facility] CBC W/Diff, Automatedon - 2-2024 Absolute Lymph 2.92 X10 3/uL Normal 0.83-4.[address] [facility] Comment on above: Order Comment: Order Date: 07/20/24Order Info: [id number] - CBCDOrder Date: 10/27/23Order Info: [id number] - CBC Performed By: #### L 100.0100, L501.9520, L400.0001, L500.4050 ####[facility] [address] [place], [address] Absolute Neut 4.3 X10 3/uL Normal 2.0-7.[address] [facility] Comment on above: Order Comment: Order Date: 07/20/24Order Info: [id number] - CBCDOrder Date: 10/27/23Order Info: [id number] - CBC Performed By: #### L 100.0100, L501.9520, L400.0001, L500.4050 ####[facility] [address] [place], [address] Basophils/100 WBC (Bld) 0.6 % Normal 0-1 [facility] Comment on above: Order Comment: Order Date: 07/20/24Order Info: [id number] - CBCDOrder Date: 10/27/23Order Info: [id number] - CBC Performed By: #### L 100.0100, L501.9520, L400.0001, L500.4050 ####[facility] [address] [place], [address] Eosinophils/100 WBC (Bld) 3.3 % Normal 0-[address] [facility] Comment on above: Order Comment: Order Date: 07/20/24Order Info: [id number] - CBCDOrder Date: 10/27/23Order Info: [id number] - CBC Performed By: #### L 100.0100, L501.9520, L400.0001, L500.4050 ####[facility] [address] [place], [address] Erythrocyte distribution width (RBC) [Ratio] 13.1 % Normal 11.6-14.[address] [facility] Comment on above: Order Comment: Order Date: 07/20/24Order Info: [id number] - CBCDOrder Date: 10/27/23Order Info: [id number] - CBC Performed By: #### L 100.0100, L501.9520, L400.0001, L500.4050 ####[facility] [address] [place], [address] Hematocrit (Bld) [Volume fraction] 40.4 % Normal 40-[address] [facility] Comment on above: Order Comment: Order Date: 07/20/24Order Info: [id number] - CBCDOrder Date: 10/27/23Order Info: [id number] - CBC Performed By: #### L 100.0100, L501.9520, L400.0001, L500.4050 ####[facility] [address] [place], [address] Hemoglobin (Bld) [Mass/Vol] 13.3 g/dL Normal 13.0-16.[address] [facility] Comment on above: Order Comment: Order Date: 07/20/24Order Info: [id number] - CBCDOrder Date: 10/27/23Order Info: [id number] - CBC Performed By: #### L 100.0100, L501.9520, L400.0001, L500.4050 ####[facility] [address] [place], [address] IG% 0.200 Normal 0.0-0.[address] [facility] Comment on above: Order Comment: Order Date: 07/20/24Order Info: [id number] - CBCDOrder Date: 10/27/23Order Info: [id number] - CBC Result Comment: IG% - Immature Granulocytes (promyelocytes, myelocytes andmetamyelocytes) > 1% indicates that a LEFT SHIFT is Present. Performed By: #### L 100.0100, L501.9520, L400.0001, L500.4050 ####[facility] [address] [place], [address] Lymphocytes/100 WBC (Bld) 35.4 % Normal 19-[address] [facility] Comment on above: Order Comment: Order Date: 07/20/24Order Info: [id number] - CBCDOrder Date: 10/27/23Order Info: [id number] - CBC Performed By: #### L 100.0100, L501.9520, L400.0001, L500.4050 ####[facility] [address] [place], [address] MCH (RBC) [Entitic mass] 29.4 pg Normal 27.0-32.[address] [facility] Comment on above: Order Comment: Order Date: 07/20/24Order Info: [id number] - CBCDOrder Date: 10/27/23Order Info: [id number] - CBC Performed By: #### L 100.0100, L501.9520, L400.0001, L500.4050 ####[facility] [address] [place], [address] MCHC (RBC) [Mass/Vol] 32.9 g/dL Normal 32-36 [facility] Comment on above: Order Comment: Order Date: 07/20/24Order Info: [id number] - CBCDOrder Date: 10/27/23Order Info: [id number] - CBC Performed By: #### L 100.0100, L501.9520, L400.0001, L500.4050 ####[facility] [address] [place], [address] MCV (RBC) [Entitic vol] 89.2 fL Normal 80-94 [facility] Comment on above: Order Comment: Order Date: 07/20/24Order Info: [id number] - CBCDOrder Date: 10/27/23Order Info: [id number] - CBC Performed By: #### L 100.0100, L501.9520, L400.0001, L500.4050 ####[facility] [address], [address] Monocytes/100 WBC (Bld) 8.4 % Normal 0-10 [facility] Comment on above: Order Comment: Order Date: 07/20/24Order Info: [id number] - CBCDOrder Date: 10/27/23Order Info: [id number] - CBC Performed By: #### L 100.0100, L501.9520, L400.0001, L500.4050 ####[facility] [address] [place], [address] Neutrophils/100 WBC (Bld) 52.1 % Normal 47-[address] [facility] Comment on above: Order Comment: Order Date: 07/20/24Order Info: [id number] - CBCDOrder Date: 10/27/23Order Info: [id number] - CBC Performed By: #### L 100.0100, L501.9520, L400.0001, L500.4050 ####[facility] [address] [facility] [place], [address] Nucleated RBC (Bld) [#/Vol] 0 10*3/uL Normal 0-[address] [facility] Comment on above: Order Comment: Order Date: 07/20/24Order Info: [id number] - CBCDOrder Date: 10/27/23Order Info: [id number] - CBC Performed By: #### L 100.0100, L501.9520, L400.0001, L500.4050 ####[facility] [address] [facility] [place], [address] Platelet mean volume (Bld) [Entitic vol] 9.1 fL Normal 6.2-12.[address] [facility] Comment on above: Order Comment: Order Date: 07/20/24Order Info: [id number] - CBCDOrder Date: 10/27/23Order Info: [id number] - CBC Performed By: #### L 100.0100, L501.9520, L400.0001, L500.4050 ####[facility] [address] [place], [address] Platelets (Bld) [#/Vol] 242 10*3/uL Normal 150-[address] [facility] Comment on above: Order Comment: Order Date: 07/20/24Order Info: [id number] - CBCDOrder Date: 10/27/23Order Info: [id number] - CBC Performed By: #### L 100.0100, L501.9520, L400.0001, L500.4050 ####[facility] [address] [place], [address] RBC (Bld) [#/Vol] 4.53 10*6/uL Low 4.6-6.2 [facility] Comment on above: Order Comment: Order Date: 07/20/24Order Info: [id number] - CBCDOrder Date: 10/27/23Order Info: [id number] - CBC Performed By: #### L 100.0100, L501.9520, L400.0001, L500.4050 ####[facility] [address] [place], [address] RDW SD 43.0 fl Normal 35.1-43.[address] [facility] Comment on above: Order Comment: Order Date: 07/20/24Order Info: [id number] - CBCDOrder Date: 10/27/23Order Info: [id number] - CBC Performed By: #### L 100.0100, L501.9520, L400.0001, L500.4050 ####[facility] [address] [place], [address] WBC (Bld) [#/Vol] 8.3 10*3/uL Normal 4.4-11.0 [facility] Comment on above: Order Comment: Order Date: 07/20/24Order Info: [id number] - CBCDOrder Date: 10/27/23Order Info: [id number] - CBC Performed By: #### L 100.0100, L501.9520, L400.0001, L500.4050 ####[facility] [address] [place], [place], [address] Calculated very low density lipoprotein (VLDL) cholesterol measurementOrdered By: Kwabena Menjivar on 07-20-2024 Calculated very low density lipoprotein (VLDL) cholesterol measurement 27 mg/dL 5-[address] [facility] Carbon dioxide, total [Moles /volume] in Central venous bloodOrdered By: Kwabena Menjivar on 07-20-2024 CO2 [Moles/Vol] 24.7 mmol/L 21.0-32.[address] [facility] Chloride assayOrdered By: Kristine Menjivar on 07-20-2024 Chloride [Moles/Vol] 104 mmol/L 98-108 [facility] Comprehensive Metabolic Prof ilon 07-20-2024 Albumin [Mass/Vol] 4.3 g/dL Normal 3.4-4.8 [facility] Comment on above: Order Comment: Order Date: 10/27/23Order Info: [id number] - BMPOrder Date: 07/20/24Order Info: [id number] - CMPOrder Info: [id number] - LIPIDOrder Info: [id number] - TSH Performed By: #### L 100.0100, L501.9520, L400.0001, L500.4050 ####[facility] [address] [place], [place], [address] Albumin/Globulin [Mass ratio] 1.6 {ratio} Normal 0.9-2.[address] [facility] Comment on above: Order Comment: Order Date: 10/27/23Order Info: [id number] - BMPOrder Date: 07/20/24Order Info: [id number] - CMPOrder Info: [id number] - LIPIDOrder Info: [id number] - TSH Performed By: #### L 100.0100, L501.9520, L400.0001, L500.4050 ####[facility] [address] [place], [address] ALK PHOS 133 U/L High 40-[address] [facility] Comment on above: Order Comment: Order Date: 10/27/23Order Info: [id number] - BMPOrder Date: 07/20/24Order Info: [id number] - CMPOrder Info: [id number] - LIPIDOrder Info: [id number] - TSH Performed By: #### L 100.0100, L501.9520, L400.0001, L500.4050 ####[facility] [address] [place], [address] ALT [Catalytic activity/Vol] 33 U/L Normal <=[address] [facility] Comment on above: Order Comment: Order Date: 10/27/23Order Info: [id number] - BMPOrder Date: 07/20/24Order Info: [id number] - CMPOrder Info: [id number] - LIPIDOrder Info: [id number] - TSH Performed By: #### L 100.0100, L501.9520, L400.0001, L500.4050 ####[facility] [address] [place], [address] AST [Catalytic activity/Vol] 30 U/L Normal <=[address] [facility] Comment on above: Order Comment: Order Date: 10/27/23Order Info: [id number] - BMPOrder Date: 07/20/24Order Info: [id number] - CMPOrder Info: [id number] - LIPIDOrder Info: [id number] - TSH Performed By: #### L 100.0100, L501.9520, L400.0001, L500.4050 ####[facility] [address] [place], [address] Bilirubin [Mass/Vol] 0.44 mg/dL Normal 0.00-1.30 [facility] Comment on above: Order Comment: Order Date: 10/27/23Order Info: [id number] - BMPOrder Date: 07/20/24Order Info: [id number] - CMPOrder Info: [id number] - LIPIDOrder Info: [id number] - TSH Performed By: #### L 100.0100, L501.9520, L400.0001, L500.4050 ####[facility] [address] [place], [address] BUN/CRE 12.9 RATIO Normal 10-[address] [facility] Comment on above: Order Comment: Order Date: 10/27/23Order Info: [id number]- - BMPOrder Date: 07/20/24Order Info: [id number] - CMPOrder Info: [id number] - LIPIDOrder Info: [id number] - TSH Performed By: #### L 100.0100, L501.9520, L400.0001, L500.4050 ####[facility] [address] [place], [address] Calcium [Mass/Vol] 9.6 mg/dL Normal 7.6-11.0 [facility] Comment on above: Order Comment: Order Date: 10/27/23Order Info: [id number]- - BMPOrder Date: 07/20/24Order Info: [id number] - CMPOrder Info: [id number] - LIPIDOrder Info: [id number] - TSH Performed By: #### L 100.0100, L501.9520, L400.0001, L500.4050 ####[facility] [address] [place], [address] Chloride [Moles/Vol] 104 mmol/L Normal 98-108 [facility] Comment on above: Order Comment: Order Date: 10/27/23Order Info: [id number]- - BMPOrder Date: 07/20/24Order Info: [id number] - CMPOrder Info: [id number] - LIPIDOrder Info: [id number] - TSH Performed By: #### L 100.0100, L501.9520, L400.0001, L500.4050 ####[facility] [address] [place], [address] CO2 [Moles/Vol] 24.7 mmol/L Normal 21.0-32.[address] [facility] Comment on above: Order Comment: Order Date: 10/27/23Order Info: [id number]- - BMPOrder Date: 07/20/24Order Info: [id number] - CMPOrder Info: [id number] - LIPIDOrder Info: [id number] - TSH Performed By: #### L 100.0100, L501.9520, L400.0001, L500.4050 ####[facility] [address] [place], [address] Creatinine [Mass/Vol] 1.07 mg/dL Normal 0.70-1.20 [facility] Comment on above: Order Comment: Order Date: 10/27/23Order Info: [id number] - BMPOrder Date: 07/20/24Order Info: [id number]- - CMPOrder Info: [id number] - LIPIDOrder Info: [id number] - TSH Performed By: #### L 100.0100, L501.9520, L400.0001, L500.4050 ####[facility] [address] [place], [address] GAP 13 Normal 5-[address] [facility] Comment on above: Order Comment: Order Date: 10/27/23Order Info: [id number] - BMPOrder Date: 07/20/24Order Info: [id number]- - CMPOrder Info: [id number] - LIPIDOrder Info: [id number] - TSH Performed By: #### L 100.0100, L501.9520, L400.0001, L500.4050 ####[facility] [address] [place], [place], [address] GFR/1.73 sq M.predicted among non-blacks MDRD (S/P/Bld) [Vol rate/Area] 69 mL/min/{1.73_m2} Normal >[address] [facility] Comment on above: Order Comment: Order Date: 10/27/23Order Info: [id number] - BMPOrder Date: 07/20/24Order Info: [id number] - CMPOrder Info: - LIPIDOrder Info: [id number] - TSH Result Comment: mL/m in/1.73m2 CKD-EPI Creatinine Equation (2020) Performed By: #### L 100.0100, L501.9520, L400.0001, L500.4050 ####[facility] [address] [place], [address] Globulin (S) [Mass/Vol] 2.6 g/dL Normal 2.2-4.2 [facility] Comment on above: Order Comment: Order Date: 10/27/23Order Info: [id number] - BMPOrder Date: 07/20/24Order Info: [id number] - CMPOrder Info: - LIPIDOrder Info: [id number] - TSH Performed By: #### L 100.0100, L501.9520, L400.0001, L500.4050 ####[facility] [address] [place], [address] Glucose [Mass/Vol] 86 mg/dL Normal 70-99 [facility] Comment on above: Order Comment: Order Date: 10/27/23Order Info: [id number] - BMPOrder Date: 07/20/24Order Info: [id number] - CMPOrder Info: - LIPIDOrder Info: [id number] - TSH Performed By: #### L 100.0100, L501.9520, L400.0001, L500.4050 ####[facility] [address] [place], [address] Potassium [Moles/Vol] 4.3 mmol/L Normal 3.3-5.1 [facility] Comment on above: Order Comment: Order Date: 10/27/23Order Info: [id number] - BMPOrder Date: 07/20/24Order Info: [id number] - CMPOrder Info: [id number] - LIPIDOrder Info: [id number] - TSH Performed By: #### L 100.0100, L501.9520, L400.0001, L500.4050 ####[facility] [address] [place], [address] Sodium [Moles/Vol] 142 mmol/L Normal 133-145 [facility] Comment on above: Order Comment: Order Date: 10/27/23Order Info: 06- - BMPOrder Date: 07/20/24Order Info: [id number] - CMPOrder Info: [id number] - LIPIDOrder Info: [id number] - TSH Performed By: #### L 100.0100, L501.9520, L400.0001, L500.4050 ####[facility] [address] [place], [address] T PROT 6.9 g/dL Normal 5.9-8.[address] [facility] Comment on above: Order Comment: Order Date: 10/27/23Order Info: 666- - BMPOrder Date: 07/20/24Order Info: 07- - CMPOrder Info: [id number] - LIPIDOrder Info: [id number] - TSH Performed By: #### L 100.0100, L501.9520, L400.0001, L500.4050 ####[facility] [address] [place], [address] Urea nitrogen [Mass/Vol] 14 mg/dL Normal 4-[address] [facility] Comment on above: Order Comment: Order Date: 10/27/23Order Info: 666- - BMPOrder Date: 07/20/24Order Info: [id number] - CMPOrder Info: [id number] - LIPIDOrder Info: [id number] - TSH Performed By: #### L 100.0100, L501.9520, L400.0001, L500.4050 ####[facility] [address] [place], [address] Eosinophil percentageOrdered By: Kwabena Menjivar on 07-20-2024 Eosinophils/100 WBC (Bld) 3.3 % 0-[address] [facility] Erythrocyte distribution wid th ratioOrdered By: Kwabena Menjivar on 07-20-2024 Erythrocyte distribution width (RBC) [Ratio] 13.1 % 11.6-14.[address] [facility] Erythrocyte distribution wid th standard deviationOrdered By: Kwabena Menjivar on 07-20-2024 Erythrocyte distribution width (RBC) [Ratio] 43.0 fl 35.1-43.[address] [facility] Glomerular filtration rate ( GFR) estimation/1.73 sq m using serum, plasma, or whole bOrdered By: Kwabena Menjivar on 07-20-2024 GFR/1.73 sq M.predicted among non-blacks MDRD (S/P/Bld) [Vol rate/Area] 69 mL/min/{1.73_m2} >[address] [facility] Hematocrit Auto (Bld) [Volum e fraction]Ordered By: Kwabena Menjivar on 07-20-2024 Hematocrit (Bld) [Volume fraction] 40.4 % 40-[address] [facility] Hemoglobin measurementOrdere d By: Kwabena Menjivar on 07-20-2024 Hemoglobin (Bld) [Mass/Vol] 13.3 g/dL 13.0-16.[address] [facility] Immature granulocytes/100 WB C Auto (Bld)Ordered By: Kwabena Menjivar on 07-20-2024 Immature granulocytes/100 WBC (Bld) 0.200 % 0.0-0.[address] [facility] LDL calc ser/plasOrdered By: Kwabena Menjivar on 07-20-2024 Cholesterol in LDL [Mass/Vol] 105 mg/dL [facility] Lipid Profileon 07-20-2024 CHOL:HDL 3.[address] [facility] Comment on above: Order Comment: Order Date: 10/27/23Order Info: [id number] - BMPOrder Date: 07/20/24Order Info: [id number] - CMPOrder Info: [id number] - LIPIDOrder Info: [id number] - TSH Performed By: #### L 500.4100 ####[facility] [address] [place], [address] Cholesterol [Mass/Vol] 185 mg/dL Normal <=200 [facility] Comment on above: Order Comment: Order Date: 10/27/23Order Info: [id number] - BMPOrder Date: 07/20/24Order Info: [id number] - CMPOrder Info: [id number] - LIPIDOrder Info: [id number] - TSH Result Comment: Chol esterol level, Desirable <200 mg/dLBorderline high cholesterol 200-239 mg/dLHigh cholesterol >=240 mg/dLRecommendations of the NCEP Adult Treatment Panel for thefollowing risk-cutoff thresholds for the [place] Americanpopulation. Performed By: #### L 500.4100 ####[facility] [address] [place], [address] Cholesterol in HDL [Mass/Vol] 53 mg/dL Normal [facility] Comment on above: Order Comment: Order Date: 10/27/23Order Info: [id number]- - BMPOrder Date: 07/20/24Order Info: [id number] - CMPOrder Info: [id number] - LIPIDOrder Info: [id number] - TSH Result Comment: Jodi onal Cholesterol Education Program (NCEP) guidelines:<40 mg/dL: Low HDL-cholesterol (major risk factor for CHD)>= 60 mg/dL: High HDL-cholesterol (negative risk factor forCHD)HDL-cholesterol is affected by a number of factors, e.g.smoking, exercise, hormones, sex and age. Performed By: #### L 500.4100 ####[facility] [address] [place], [address] Cholesterol in LDL [Mass/Vol] 105 mg/dL Normal [facility] Comment on above: Order Comment: Order Date: 10/27/23Order Info: [id number] - BMPOrder Date: 07/20/24Order Info: [id number] - CMPOrder Info: [id number] - LIPIDOrder Info: [id number] - TSH Result Comment: Bord zagjal=075-291 mg/dL Higher Hunc=233 mg/dL or greater Performed By: #### L 500.4100 ####[facility] [address] [place], [address] Cholesterol in VLDL [Mass/Vol] 27 mg/dL Normal 5-[address] [facility] Comment on above: Order Comment: Order Date: 10/27/23Order Info: 06-1 - BMPOrder Date: 07/20/24Order Info: [id number] - CMPOrder Info: [id number] - LIPIDOrder Info: [id number] - TSH Performed By: #### L 500.4100 ####[facility] [address] [place], [address] Triglyceride [Mass/Vol] 136 mg/dL Normal [facility] Comment on above: Order Comment: Order Date: 10/27/23Order Info: 06- - BMPOrder Date: 07/20/24Order Info: [id number] - CMPOrder Info: [id number] - LIPIDOrder Info: [id number] - TSH Result Comment: The drugs N-Acetylcysteine and Metamizole may falselydepress this assay.Normal range: <150 mg/dLBorderline High: 150-199 mg/dLHigh: 200-499 mg/dLVery High: >500 mg/dL Performed By: #### L 500.4100 ####[facility] [address] [place], [address] MCV (mean corpuscular volume ) determinationOrdered By: Kwabena Menjivar on 07-20-2024 MCV (RBC) [Entitic vol] 89.2 fL 80-94 [facility] Mean corpuscular hemoglobin (MCH) determinationOrdered By: Kwabena Menjivar on 07-20-2024 MCH (RBC) [Entitic mass] 29.4 pg 27.0-32.[address] [facility] Monocyte percentageOrdered B y: Kwabena Menjivar on 07-20-2024 Monocytes/100 WBC (Bld) 8.4 % 0-10 [facility] Neutrophil percentageOrdered By: Kwabena Menjivar on 07-20-2024 Neutrophils/100 WBC (Bld) 52.1 % 47-[address] [facility] No Panel InformationOrdered By: Kwabena Menjivar on 07-20-2024 30 U/L <[address] [facility] Platelet countOrdered By: Kristine Menjivar on 07-20-2024 Platelets (Bld) [#/Vol] 242 10*3/uL 150-[address] [facility] Potassium measurement (mass/ volume)Ordered By: Kwabena Menjivar on 07-20-2024 Potassium (Unsp spec) [Mass/Vol] 4.3 mmol/L 3.3-5.[address] [facility] RBC Auto (Bld) [#/Vol]Ordere d By: Kwabena Menjivar on 07-20-2024 RBC (Bld) [#/Vol] 4.53 10*6/uL Low 4.6-6.2 [facility] Serum creatinine measurement (mass/volume)Ordered By: Kwabena Menjivar on 07-20-2024 Creatinine [Mass/Vol] 1.07 mg/dL 0.70-1.20 [facility] Serum globulin measurementOr dered By: Kwabena Menjivar on 07-20-2024 Globulin (S) [Mass/Vol] 2.6 g/dL 2.2-4.2 [facility] Serum glucose measurement (m ass/volume)Ordered By: Kwabena Menjivar on 07-20-2024 Glucose [Mass/Vol] 86 mg/dL 70-99 [facility] Serum or plasma alanine olmedo otransferase (ALT) measurementOrdered By: Kwabena Menjivar on 07-20-2024 ALT [Catalytic activity/Vol] 33 U/L <[address] [facility] Serum or plasma albumin ratna urement (mass/volume)Ordered By: Kwabena Menjivar on 07-20-2024 Albumin [Mass/Vol] 4.3 g/dL 3.4-4.8 [facility] Serum or plasma albumin/glob ulin mass ratioOrdered By: Kwabena Menjivar on 07-20-2024 Albumin/Globulin [Mass ratio] 1.6 {ratio} 0.9-2.[address] [facility] Serum or plasma alkaline garry sphatase measurementOrdered By: Kwabena Menjivar on 07-20-2024 ALP [Catalytic activity/Vol] 133 U/L High 40-[address] [facility] Serum or plasma calcium ratna urement (mass/volume)Ordered By: Kwabena Menjivar on 07-20-2024 Calcium [Mass/Vol] 9.6 mg/dL 7.6-11.0 [facility] Serum or plasma cholesterol in HDL measurement (mass/volume)Ordered By: Kwabena Menjivar on 07-20-2024 Cholesterol in HDL [Mass/Vol] 53 mg/dL >[address] [facility] Serum or plasma cholesterol measurement (mass/volume)Ordered By: Kwabena Menjivar on 07-20-2024 Cholesterol [Mass/Vol] 185 mg/dL <201 [facility] Serum or plasma urea nitroge n measurement (mass/volume)Ordered By: Kwabena Menjivar on 07-20-2024 Urea nitrogen [Mass/Vol] 14 mg/dL 4-[address] [facility] Sodium levelOrdered By: Akhil Menjivar on 07-20-2024 Sodium [Moles/Vol] 142 mmol/L 133-145 [facility] TSH DL <= 0.005 mIU/L QnOrde red By: Kwabena Menjivar on 07-20-2024 TSH Qn 1.580 uIU/mL 0.300-4.[address] [facility] Thyroid Stim Hormone (TSH)on 07-20-2024 TSH 1.580 uIU/mL Normal 0.300-4.[address] [facility] Comment on above: Order Comment: Order Date: 10/27/23Order Info: [id number] - BMPOrder Date: 07/20/24Order Info: [id number] - CMPOrder Info: [id number] - LIPIDOrder Info: [id number] - TSH Performed By: #### L 100.0100, L501.9520, L400.0001, L500.4050 ####[facility] [address] [place], [place], [address] Total proteinOrdered By: Blayne Menjivar on 07-20-2024 Protein [Mass/Vol] 6.9 g/dL 5.9-8.4 [facility] Urinalysis, Completeon 07-20 BACTERIA 0 SEEN Normal None Seen [facility] Comment on above: Order Comment: Order Date: 07/20/24Order Info: [id number] - UACCOLLECTOR TO SPECIFY Result Comment: UTO Performed By: #### L 100.0100, L501.9520, L400.0001, L500.4050 ####[facility] [address] [place], [address] EPI,SQUAMOUS 0 SEEN Normal 0-[address] [facility] Comment on above: Order Comment: Order Date: 07/20/24Order Info: [id number] - UACCOLLECTOR TO SPECIFY Result Comment: UTO Performed By: #### L 100.0100, L501.9520, L400.0001, L500.4050 ####[facility] [address] [place], [address] Mucus Ql (Urine sed) 0 SEEN Normal [facility] Comment on above: Order Comment: Order Date: 07/20/24Order Info: [id number] - UACCOLLECTOR TO SPECIFY Result Comment: UTO Performed By: #### L 100.0100, L501.9520, L400.0001, L500.4050 ####[facility] [address] [place], [address] RBC 0 SEEN Normal [address] [place] [address] Comment on above: Order Comment: Order Date: 07/20/24Order Info: [id number] - UACCOLLECTOR TO SPECIFY Result Comment: UTO Performed By: #### L 100.0100, L501.9520, L400.0001, L500.4050 ####[facility] [address] [place], [address] WBC 0 SEEN Normal [address] [place] [address] Comment on above: Order Comment: Order Date: 07/20/24Order Info: [id number] - UACCOLLECTOR TO SPECIFY Result Comment: UTO Performed By: #### L 100.0100, L501.9520, L400.0001, L500.4050 ####[facility] [address] [place], [address] BILIRUBIN URINE Normal Negative [facility] Comment on above: Order Comment: Order Date: 07/20/24Order Info: [id number] - UACCOLLECTOR TO SPECIFY Result Comment: UTO Performed By: #### L 100.0100, L501.9520, L400.0001, L500.4050 ####[facility] [address] [place], [address] Clarity (U) Normal Clear [facility] Comment on above: Order Comment: Order Date: 07/20/24Order Info: [id number] - UACCOLLECTOR TO SPECIFY Result Comment: UTO Performed By: #### L 100.0100, L501.9520, L400.0001, L500.4050 ####[facility] [address] [place], [address] Color (U) Normal Yellow [facility] Comment on above: Order Comment: Order Date: 07/20/24Order Info: [id number] - UACCOLLECTOR TO SPECIFY Result Comment: UTO Performed By: #### L 100.0100, L501.9520, L400.0001, L500.4050 ####[facility] [address] [place], [address] GLUCOSE, UR Normal Normal [facility] Comment on above: Order Comment: Order Date: 07/20/24Order Info: [id number] - UACCOLLECTOR TO SPECIFY Result Comment: UTO Performed By: #### L 100.0100, L501.9520, L400.0001, L500.4050 ####[facility] [address] [place], [address] KETONE UR Normal Negative [facility] Comment on above: Order Comment: Order Date: 07/20/24Order Info: [id number] - UACCOLLECTOR TO SPECIFY Result Comment: UTO Performed By: #### L 100.0100, L501.9520, L400.0001, L500.4050 ####[facility] [address] [place], [address] LEUK ESTERASE Normal Negative [facility] Comment on above: Order Comment: Order Date: 07/20/24Order Info: [id number] - UACCOLLECTOR TO SPECIFY Result Comment: UTO Performed By: #### L 100.0100, L501.9520, L400.0001, L500.4050 ####[facility] [address] [place], [address] Nitrite Ql (U) Normal Negative [facility] Comment on above: Order Comment: Order Date: 07/20/24Order Info: [id number] - UACCOLLECTOR TO SPECIFY Result Comment: UTO Performed By: #### L 100.0100, L501.9520, L400.0001, L500.4050 ####[facility] [address] [place], [address] OCCULT BLOOD-UR Normal Negative [facility] Comment on above: Order Comment: Order Date: 07/20/24Order Info: [id number] - UACCOLLECTOR TO SPECIFY Result Comment: UTO Performed By: #### L 100.0100, L501.9520, L400.0001, L500.4050 ####[facility] [address] [place], [address] pH UR Normal 5.0 - 8.[address] [facility] Comment on above: Order Comment: Order Date: 07/20/24Order Info: [id number] - UACCOLLECTOR TO SPECIFY Result Comment: UTO Performed By: #### L 100.0100, L501.9520, L400.0001, L500.4050 ####[facility] [address] [place], [address] PROT DIPSTX Normal Negative [facility] Comment on above: Order Comment: Order Date: 07/20/24Order Info: [id number] - UACCOLLECTOR TO SPECIFY Result Comment: UTO Performed By: #### L 100.0100, L501.9520, L400.0001, L500.4050 ####[facility] [address] [place], [address] SP.GR. DIPSTX Normal 1.002-1.[address] [facility] Comment on above: Order Comment: Order Date: 07/20/24Order Info: [id number] - UACCOLLECTOR TO SPECIFY Result Comment: UTO Performed By: #### L 100.0100, L501.9520, L400.0001, L500.4050 ####[facility] [address] [place], [address] UR Preservative Normal [facility] Comment on above: Order Comment: Order Date: 07/20/24Order Info: [id number] - UACCOLLECTOR TO SPECIFY Result Comment: UTO Performed By: #### L 100.0100, L501.9520, L400.0001, L500.4050 ####[facility] [address] [place], [address] UROBILI Normal Normal [facility] Comment on above: Order Comment: Order Date: 07/20/24Order Info: [id number] - UACCOLLECTOR TO SPECIFY Result Comment: UTO Performed By: #### L 100.0100, L501.9520, L400.0001, L500.4050 ####[facility] [address] [place], [address] Vitamin D,25 Hydroxyon 07-20 Vitamin D 25-OH 45.1 ng/mL Normal 30-[address] [facility] Comment on above: Order Comment: Order Date: 10/27/23Order Info: [id number] - BMPOrder Date: 07/20/24Order Info: [id number] - CMPOrder Info: [id number] - LIPIDOrder Info: [id number] - TSH Result Comment: Bethany min D StatusDeficiency: <20 ng/mL (50nmol/L)Insufficiency: 20-30 ng/mL (50-75 nmol/L)Sufficiency: 30-100 ng/mL (75-250 nmol/L)Toxicity: >100 ng/mL (>250 nmol/L) Performed By: #### L 506.1001 ####[facility] [address] [place], [address] White blood cell (WBC) count Ordered By: Kwabena Menjivar on 07-20-2024 WBC (Bld) [#/Vol] 8.3 10*3/uL 4.4-11.0 [facility] Wrist min 3 Viewson 07-21-19 25 Wrist min [address] [facility] Absolute lymphocyte countOrd ered By: Keven Etienne on 07-11-2024 Lymphocytes Auto (Unsp spec) [#/Vol] 2.74 10*3/uL 0.83-4.[address] [facility] Anion gap in Serum or Plasma Ordered By: Keven Etienne on 07-11-2024 Anion gap [Moles/Vol] 10 mmol/L 5-15 [facility] Automated lymphocyte count a s percentage of total leukocytesOrdered By: Keven Etienne on 07-11-2024 Lymphocytes/100 WBC Auto (Unsp spec) 40.8 % 19-[address] [facility] BUN/creatinine ratioOrdered By: Keven Etienne on 07-11-2024 Urea nitrogen/Creatinine [Mass ratio] 22.0 mg/mg High 10-[address] [facility] Basophil percentageOrdered B y: Keven Etienne on 07-11-2024 Basophils/100 WBC (Bld) 0.6 % 0-1 [facility] Carbon dioxide, total [Moles /volume] in Central venous bloodOrdered By: Keven Etienne on 07-11-2024 CO2 [Moles/Vol] 25.7 mmol/L 21.0-32.[address] [facility] Chloride assayOrdered By: Edwar Etienne on 07-11-2024 Chloride [Moles/Vol] 104 mmol/L 98-108 [facility] Eosinophil percentageOrdered By: Keven Etienne on 07-11-2024 Eosinophils/100 WBC (Bld) 6.1 % High 0-[address] [facility] Erythrocyte distribution wid th ratioOrdered By: Keven Etienne on 07-11-2024 Erythrocyte distribution width (RBC) [Ratio] 13.1 % 11.6-14.[address] [facility] Erythrocyte distribution wid th standard deviationOrdered By: Keven Etienne on 07-11-2024 Erythrocyte distribution width (RBC) [Ratio] 42.7 fl 35.1-43.[address] [facility] Glomerular filtration rate ( GFR) estimation/1.73 sq m using serum, plasma, or whole bOrdered By: Keven Etienne on 07-11-2024 GFR/1.73 sq M.predicted among non-blacks MDRD (S/P/Bld) [Vol rate/Area] 87 mL/min/{1.73_m2} >[address] [facility] Hematocrit Auto (Bld) [Volum e fraction]Ordered By: Keven Etienne on 07-11-2024 Hematocrit (Bld) [Volume fraction] 35.5 % Low 40-[address] [facility] Hemoglobin measurementOrdere d By: Keven Etienne on 07-11-2024 Hemoglobin (Bld) [Mass/Vol] 11.9 g/dL Low 13.0-16.[address] [facility] Immature granulocytes/100 WB C Auto (Bld)Ordered By: Keven Etienne on 07-11-2024 Immature granulocytes/100 WBC (Bld) 0.300 % 0.0-0.[address] [facility] MCV (mean corpuscular volume ) determinationOrdered By: Keven Etienne on 07-11-2024 MCV (RBC) [Entitic vol] 88.8 fL 80-94 [facility] Mean corpuscular hemoglobin (MCH) determinationOrdered By: remedios Etienne on 07-11-2024 MCH (RBC) [Entitic mass] 29.8 pg 27.0-32.[address] [facility] Monocyte percentageOrdered B y: Keven Etienne on 07-11-2024 Monocytes/100 WBC (Bld) 8.9 % 0-10 [facility] Neutrophil percentageOrdered By: remedios Etienne on 07-11-2024 Neutrophils/100 WBC (Bld) 43.3 % Low 47-[address] [facility] Platelet countOrdered By: Edwar Etienne on 07-11-2024 Platelets (Bld) [#/Vol] 186 10*3/uL 150-[address] [facility] Potassium measurement (mass/ volume)Ordered By: Keven Etienne on 07-11-2024 Potassium (Unsp spec) [Mass/Vol] 4.3 mmol/L 3.3-5.[address] [facility] RBC Auto (Bld) [#/Vol]Ordere d By: Keven Etienne on 07-11-2024 RBC (Bld) [#/Vol] 4.00 10*6/uL Low 4.6-6.2 [facility] Serum creatinine measurement (mass/volume)Ordered By: Keven Etienne on 07-11-2024 Creatinine [Mass/Vol] 0.86 mg/dL 0.70-1.20 [facility] Serum glucose measurement (m ass/volume)Ordered By: Keven Etienne on 07-11-2024 Glucose [Mass/Vol] 91 mg/dL 70-99 [facility] Serum or plasma calcium ratna urement (mass/volume)Ordered By: Keven Etienne on 07-11-2024 Calcium [Mass/Vol] 8.8 mg/dL 7.6-11.0 [facility] Serum or plasma urea nitroge n measurement (mass/volume)Ordered By: Keven Etienne on 07-11-2024 Urea nitrogen [Mass/Vol] 19 mg/dL 4-[address] [facility] Sodium levelOrdered By: Rita Etienne on 07-11-2024 Sodium [Moles/Vol] 139 mmol/L 133-145 [facility] White blood cell (WBC) count Ordered By: Keven Etienne on 07-11-2024 WBC (Bld) [#/Vol] 6.7 10*3/uL 4.4-11.0 [facility] Absolute lymphocyte countOrd ered By: Keven Etienne on 07-04-2024 Lymphocytes Auto (Unsp spec) [#/Vol] 2.53 10*3/uL 0.83-4.[address] [facility] Anion gap in Serum or Plasma Ordered By: Keven Etienne on 07-04-2024 Anion gap [Moles/Vol] 10 mmol/L 5-15 [facility] Automated lymphocyte count a s percentage of total leukocytesOrdered By: Keven Etienne on 07-04-2024 Lymphocytes/100 WBC Auto (Unsp spec) 38.2 % 19-[address] [facility] BUN/creatinine ratioOrdered By: Keven Etienne on 07-04-2024 Urea nitrogen/Creatinine [Mass ratio] 15.7 mg/mg 10-[address] [facility] Basophil percentageOrdered B y: Keven Etienne on 07-04-2024 Basophils/100 WBC (Bld) 0.3 % 0-1 [facility] Carbon dioxide, total [Moles /volume] in Central venous bloodOrdered By: Keven Etienne on 07-04-2024 CO2 [Moles/Vol] 25.9 mmol/L 21.0-32.[address] [facility] Chloride assayOrdered By: Edwar Etienne on 07-04-2024 Chloride [Moles/Vol] 105 mmol/L 98-108 [facility] Eosinophil percentageOrdered By: Keven Etienne on 07-04-2024 Eosinophils/100 WBC (Bld) 6.8 % High 0-[address] [facility] Erythrocyte distribution wid th ratioOrdered By: Keven Etienne on 07-04-2024 Erythrocyte distribution width (RBC) [Ratio] 12.9 % 11.6-14.[address] [facility] Erythrocyte distribution wid th standard deviationOrdered By: Keven Etienne on 07-04-2024 Erythrocyte distribution width (RBC) [Ratio] 41.9 fl 35.1-43.[address] [facility] Glomerular filtration rate ( GFR) estimation/1.73 sq m using serum, plasma, or whole bOrdered By: Keven Etienne on 07-04-2024 GFR/1.73 sq M.predicted among non-blacks MDRD (S/P/Bld) [Vol rate/Area] 86 mL/min/{1.73_m2} >[address] [facility] Hematocrit Auto (Bld) [Volum e fraction]Ordered By: Keven Etienne on 07-04-2024 Hematocrit (Bld) [Volume fraction] 37.0 % Low 40-[address] [facility] Hemoglobin measurementOrdere d By: Keven Batemanjuan luis on 07-04-2024 Hemoglobin (Bld) [Mass/Vol] 12.2 g/dL Low 13.0-16.[address] [facility] Immature granulocytes/100 WB C Auto (Bld)Ordered By: Ritajuan alberto Monicodollyjuan luis on 07-04-2024 Immature granulocytes/100 WBC (Bld) 0.300 % 0.0-0.[address] [facility] MCV (mean corpuscular volume ) determinationOrdered By: Edwarfrannycadenkeron Marcdollyjuan luis on 07-04-2024 MCV (RBC) [Entitic vol] 88.5 fL 80-94 [facility] Mean corpuscular hemoglobin (MCH) determinationOrdered By: Edwarremedios Marcdollyjuan luis on 07-04-2024 MCH (RBC) [Entitic mass] 29.2 pg 27.0-32.[address] [facility] Monocyte percentageOrdered B y: Edwarfrannycadenkeron Marcdollyjuan luis on 07-04-2024 Monocytes/100 WBC (Bld) 9.2 % 0-10 [facility] Neutrophil percentageOrdered By: remedios Monicodollyjuan luis on 07-04-2024 Neutrophils/100 WBC (Bld) 45.2 % Low 47-[address] [facility] Platelet countOrdered By: Edwar remedios Monicodollyjuan luis on 07-04-2024 Platelets (Bld) [#/Vol] 187 10*3/uL 150-[address] [facility] Potassium measurement (mass/ volume)Ordered By: Ritacadenkeron Etienne on 07-04-2024 Potassium (Unsp spec) [Mass/Vol] 4.4 mmol/L 3.3-5.[address] [facility] RBC Auto (Bld) [#/Vol]Ordere d By: Keven Monicodollyjuan luis on 07-04-2024 RBC (Bld) [#/Vol] 4.18 10*6/uL Low 4.6-6.2 [facility] Serum creatinine measurement (mass/volume)Ordered By: Keven Etienne on 07-04-2024 Creatinine [Mass/Vol] 0.87 mg/dL 0.70-1.20 [facility] Serum glucose measurement (m ass/volume)Ordered By: Keven Etienne on 07-04-2024 Glucose [Mass/Vol] 95 mg/dL 70-99 [facility] Serum or plasma calcium ratna urement (mass/volume)Ordered By: Keven Etienne on 07-04-2024 Calcium [Mass/Vol] 9.0 mg/dL 7.6-11.0 [facility] Serum or plasma urea nitroge n measurement (mass/volume)Ordered By: Keven Etienne on 07-04-2024 Urea nitrogen [Mass/Vol] 14 mg/dL 4-[address] [facility] Sodium levelOrdered By: Edwar poojaambika Jaimie on 07-04-2024 Sodium [Moles/Vol] 141 mmol/L 133-145 [facility] White blood cell (WBC) count Ordered By: Keven Etienne on 07-04-2024 WBC (Bld) [#/Vol] 6.6 10*3/uL 4.4-11.0 [facility] Absolute lymphocyte countOrd ered By: Keven Etienne on 06-26-2024 Lymphocytes Auto (Unsp spec) [#/Vol] 2.99 10*3/uL 0.83-4.[address] [facility] Anion gap in Serum or Plasma Ordered By: Keven Etienne on 06-26-2024 Anion gap [Moles/Vol] 8 mmol/L 5-15 [facility] Automated lymphocyte count a s percentage of total leukocytesOrdered By: Keven Etienne on 06-26-2024 Lymphocytes/100 WBC Auto (Unsp spec) 45.0 % High 19-[address] [facility] BUN/creatinine ratioOrdered By: Keven Etienne on 06-26-2024 Urea nitrogen/Creatinine [Mass ratio] 18.5 mg/mg 10-[address] [facility] Basophil percentageOrdered B y: Keven Etienne on 06-26-2024 Basophils/100 WBC (Bld) 0.6 % 0-1 [facility] Carbon dioxide, total [Moles /volume] in Central venous bloodOrdered By: Keven Etienne on 06-26-2024 CO2 [Moles/Vol] 25.7 mmol/L 21.0-32.[address] [facility] Chloride assayOrdered By: Edwar Etienne on 06-26-2024 Chloride [Moles/Vol] 105 mmol/L 98-108 [facility] Eosinophil percentageOrdered By: Keven Etienne 06-26-2024 Eosinophils/100 WBC (Bld) 4.1 % 0-[address] [facility] Erythrocyte distribution wid th ratioOrdered By: Keven Etienne on 06-26-2024 Erythrocyte distribution width (RBC) [Ratio] 13.0 % 11.6-14.[address] [facility] Erythrocyte distribution wid th standard deviationOrdered By: Keven Etienne on 06-26-2024 Erythrocyte distribution width (RBC) [Ratio] 42.1 fl 35.1-43.[address] [facility] Glomerular filtration rate ( GFR) estimation/1.73 sq m using serum, plasma, or whole bOrdered By: Keven Etienne on 06-26-2024 GFR/1.73 sq M.predicted among non-blacks MDRD (S/P/Bld) [Vol rate/Area] 85 mL/min/{1.73_m2} >[address] [facility] Hematocrit Auto (Bld) [Volum e fraction]Ordered By: Keven Etienne 06-26-2024 Hematocrit (Bld) [Volume fraction] 35.2 % Low 40-[address] [facility] Hemoglobin measurementOrdere d By: Keven Etienne 06-26-2024 Hemoglobin (Bld) [Mass/Vol] 11.7 g/dL Low 13.0-16.[address] [facility] Immature granulocytes/100 WB C Auto (Bld)Ordered By: Keven Etienne 06-26-2024 Immature granulocytes/100 WBC (Bld) 0.200 % 0.0-0.[address] [facility] MCV (mean corpuscular volume ) determinationOrdered By: Keven Etienne 06-26-2024 MCV (RBC) [Entitic vol] 88.4 fL 80-94 [facility] Mean corpuscular hemoglobin (MCH) determinationOrdered By: Keven Etienne 06-26-2024 MCH (RBC) [Entitic mass] 29.4 pg 27.0-32.[address] [facility] Monocyte percentageOrdered B y: Keven Etienne on 06-26-2024 Monocytes/100 WBC (Bld) 9.5 % 0-10 [facility] Neutrophil percentageOrdered By: Keven Etienne on 06-26-2024 Neutrophils/100 WBC (Bld) 40.6 % Low 47-[address] [facility] Platelet countOrdered By: Edwar Etienne on 06-26-2024 Platelets (Bld) [#/Vol] 177 10*3/uL 150-[address] [facility] Potassium measurement (mass/ volume)Ordered By: Keven Etienne on 06-26-2024 Potassium (Unsp spec) [Mass/Vol] 4.4 mmol/L 3.3-5.[address] [facility] RBC Auto (Bld) [#/Vol]Ordere d By: Keven Etienne on 06-26-2024 RBC (Bld) [#/Vol] 3.98 10*6/uL Low 4.6-6.2 [facility] Serum creatinine measurement (mass/volume)Ordered By: Keven Etienne on 06-26-2024 Creatinine [Mass/Vol] 0.91 mg/dL 0.70-1.20 [facility] Serum glucose measurement (m ass/volume)Ordered By: Keven Etienne on 06-26-2024 Glucose [Mass/Vol] 90 mg/dL 70-99 [facility] Serum or plasma calcium ratna urement (mass/volume)Ordered By: Keven Etienne on 06-26-2024 Calcium [Mass/Vol] 8.9 mg/dL 7.6-11.0 [facility] Serum or plasma urea nitroge n measurement (mass/volume)Ordered By: Keven Etienne on 06-26-2024 Urea nitrogen [Mass/Vol] 17 mg/dL 4-[address] [facility] Sodium levelOrdered By: Rita Etienne on 06-26-2024 Sodium [Moles/Vol] 139 mmol/L 133-145 [facility] White blood cell (WBC) count Ordered By: Keven Etienne on 06-26-2024 WBC (Bld) [#/Vol] 6.7 10*3/uL 4.4-11.0 [facility] Absolute lymphocyte countOrd ered By: Keven Etienne on 06-19-2024 Lymphocytes Auto (Unsp spec) [#/Vol] 2.85 10*3/uL 0.83-4.[address] [facility] Anion gap in Serum or Plasma Ordered By: Keven Etienne on 06-19-2024 Anion gap [Moles/Vol] 10 mmol/L 5-15 [facility] Automated lymphocyte count a s percentage of total leukocytesOrdered By: Keven Etienne on 06-19-2024 Lymphocytes/100 WBC Auto (Unsp spec) 41.2 % High 19-[address] [facility] BUN/creatinine ratioOrdered By: Ritanewportkeron Etienne on 06-19-2024 Urea nitrogen/Creatinine [Mass ratio] 24.2 mg/mg High 10-[address] [facility] Basophil percentageOrdered B y: Keven Etienne on 06-19-2024 Basophils/100 WBC (Bld) 0.6 % 0-1 [facility] Carbon dioxide, total [Moles /volume] in Central venous bloodOrdered By: Keven Etienne on 06-19-2024 CO2 [Moles/Vol] 25.5 mmol/L 21.0-32.[address] [facility] Chloride assayOrdered By: Edwar Etienne on 06-19-2024 Chloride [Moles/Vol] 105 mmol/L 98-108 [facility] Eosinophil percentageOrdered By: remedios Etienne on 06-19-2024 Eosinophils/100 WBC (Bld) 4.9 % 0-[address] [facility] Erythrocyte distribution wid th ratioOrdered By: Keven Etienne on 06-19-2024 Erythrocyte distribution width (RBC) [Ratio] 13.0 % 11.6-14.[address] [facility] Erythrocyte distribution wid th standard deviationOrdered By: Keven Etienne on 06-19-2024 Erythrocyte distribution width (RBC) [Ratio] 42.8 fl 35.1-43.[address] [facility] Glomerular filtration rate ( GFR) estimation/1.73 sq m using serum, plasma, or whole bOrdered By: Keven Etienne on 06-19-2024 GFR/1.73 sq M.predicted among non-blacks MDRD (S/P/Bld) [Vol rate/Area] 86 mL/min/{1.73_m2} >[address] [facility] Hematocrit Auto (Bld) [Volum e fraction]Ordered By: Keven Etienne on 06-19-2024 Hematocrit (Bld) [Volume fraction] 36.0 % Low 40-[address] [facility] Hemoglobin measurementOrdere d By: remedios Etinene on 06-19-2024 Hemoglobin (Bld) [Mass/Vol] 11.8 g/dL Low 13.0-16.[address] [facility] Immature granulocytes/100 WB C Auto (Bld)Ordered By: remedios Etienne on 06-19-2024 Immature granulocytes/100 WBC (Bld) 0.300 % 0.0-0.[address] [facility] MCV (mean corpuscular volume ) determinationOrdered By: Keven Etienne on 06-19-2024 MCV (RBC) [Entitic vol] 90.0 fL 80-94 [facility] Mean corpuscular hemoglobin (MCH) determinationOrdered By: [facility] on 06-19-[facility]24 MCH (RBC) [Entitic mass] 29.5 pg 27.0-32.[address] [facility] Monocyte percentageOrdered B y: Keven Etienne on 06-19-2024 Monocytes/100 WBC (Bld) 9.5 % 0-10 [facility] Neutrophil percentageOrdered By: [facility] on 06-19-2024 Neutrophils/100 WBC (Bld) 43.5 % Low 47-[address] [facility] Platelet countOrdered By: Edwar Etienne on 06-19-2024 Platelets (Bld) [#/Vol] 185 10*3/uL 150-[address] [facility] Potassium measurement (mass/ volume)Ordered By: Keven Etienne 06-19-2024 Potassium (Unsp spec) [Mass/Vol] 4.4 mmol/L 3.3-5.[address] [facility] RBC Auto (Bld) [#/Vol]Ordere d By: Keven Etienne on 06-19-2024 RBC (Bld) [#/Vol] 4.00 10*6/uL Low 4.6-6.2 [facility] Serum creatinine measurement (mass/volume)Ordered By: Keven Etienne on 06-19-2024 Creatinine [Mass/Vol] 0.89 mg/dL 0.70-1.20 [facility] Serum glucose measurement (m ass/volume)Ordered By: Keven Etienne on 06-19-2024 Glucose [Mass/Vol] 91 mg/dL 70-99 [facility] Serum or plasma calcium ratna urement (mass/volume)Ordered By: Keven Etienne on 06-19-2024 Calcium [Mass/Vol] 9.0 mg/dL 7.6-11.0 [facility] Serum or plasma urea nitroge n measurement (mass/volume)Ordered By: Keven Etienne on 06-19-2024 Urea nitrogen [Mass/Vol] 22 mg/dL High 4-[address] [facility] Sodium levelOrdered By: Rita juan alberto Jaimie on 06-19-2024 Sodium [Moles/Vol] 141 mmol/L 133-145 [facility] White blood cell (WBC) count Ordered By: Keven Etienne on 06-19-2024 WBC (Bld) [#/Vol] 6.9 10*3/uL 4.4-11.0 [facility] Absolute lymphocyte countOrd ered By: Keven Etienne on 06-12-2024 Lymphocytes Auto (Unsp spec) [#/Vol] 2.89 10*3/uL 0.83-4.[address] [facility] Anion gap in Serum or Plasma Ordered By: Keven Etienne on 06-12-2024 Anion gap [Moles/Vol] 10 mmol/L 5-15 [facility] Automated lymphocyte count a s percentage of total leukocytesOrdered By: Keven Etienne on 06-12-2024 Lymphocytes/100 WBC Auto (Unsp spec) 41.1 % High 19-[address] [facility] BUN/creatinine ratioOrdered By: Keven Etienne on 06-12-2024 Urea nitrogen/Creatinine [Mass ratio] 20.6 mg/mg High 10-[address] [facility] Basophil percentageOrdered B y: Keven Etienne on 06-12-2024 Basophils/100 WBC (Bld) 0.3 % 0-1 [facility] Carbon dioxide, total [Moles /volume] in Central venous bloodOrdered By: Keven Etienne on 06-12-2024 CO2 [Moles/Vol] 24.3 mmol/L 21.0-32.[address] [facility] Chloride assayOrdered By: Edwar Etienne on 06-12-2024 Chloride [Moles/Vol] 105 mmol/L 98-108 [facility] Eosinophil percentageOrdered By: Keven Etienne on 06-12-2024 Eosinophils/100 WBC (Bld) 3.6 % 0-[address] [facility] Erythrocyte distribution wid th ratioOrdered By: Keven Etienne on 06-12-2024 Erythrocyte distribution width (RBC) [Ratio] 12.9 % 11.6-14.[address] [facility] Erythrocyte distribution wid th standard deviationOrdered By: Keven Etienne on 06-12-2024 Erythrocyte distribution width (RBC) [Ratio] 41.6 fl 35.1-43.[address] [facility] Glomerular filtration rate ( GFR) estimation/1.73 sq m using serum, plasma, or whole bOrdered By: Keven Etienne on 06-12-2024 GFR/1.73 sq M.predicted among non-blacks MDRD (S/P/Bld) [Vol rate/Area] 87 mL/min/{1.73_m2} >[address] [facility] Hematocrit Auto (Bld) [Volum e fraction]Ordered By: Keven Etienne on 06-12-2024 Hematocrit (Bld) [Volume fraction] 34.2 % Low 40-[address] [facility] Hemoglobin measurementOrdere d By: Keven Etienne on 06-12-2024 Hemoglobin (Bld) [Mass/Vol] 11.4 g/dL Low 13.0-16.[address] [facility] Immature granulocytes/100 WB C Auto (Bld)Ordered By: Keven Etienne on 06-12-2024 Immature granulocytes/100 WBC (Bld) 0.100 % 0.0-0.[address] [facility] MCV (mean corpuscular volume ) determinationOrdered By: Keven Etienne on 06-12-2024 MCV (RBC) [Entitic vol] 88.4 fL 80-94 [facility] Mean corpuscular hemoglobin (MCH) determinationOrdered By: frannynewportkeron Etienne on 06-12-2024 MCH (RBC) [Entitic mass] 29.5 pg 27.0-32.[address] [facility] Monocyte percentageOrdered B y: Keven Etienne on 06-12-2024 Monocytes/100 WBC (Bld) 9.4 % 0-10 [facility] Neutrophil percentageOrdered By: frannynewportkeorn Etienne on 06-12-2024 Neutrophils/100 WBC (Bld) 45.5 % Low 47-[address] [facility] Platelet countOrdered By: Edwar nitishkeron Etienne on 06-12-2024 Platelets (Bld) [#/Vol] 188 10*3/uL 150-[address] [facility] Potassium measurement (mass/ volume)Ordered By: Keven Etienne on 06-12-2024 Potassium (Unsp spec) [Mass/Vol] 4.2 mmol/L 3.3-5.[address] [facility] RBC Auto (Bld) [#/Vol]Ordere d By: Keven Etienne on 06-12-2024 RBC (Bld) [#/Vol] 3.87 10*6/uL Low 4.6-6.2 [facility] Serum creatinine measurement (mass/volume)Ordered By: Keven Etienne on 06-12-2024 Creatinine [Mass/Vol] 0.85 mg/dL 0.70-1.20 [facility] Serum glucose measurement (m ass/volume)Ordered By: Keven Etienne on 06-12-2024 Glucose [Mass/Vol] 94 mg/dL 70-99 [facility] Serum or plasma calcium ratna urement (mass/volume)Ordered By: Keven Etienne on 06-12-2024 Calcium [Mass/Vol] 8.9 mg/dL 7.6-11.0 [facility] Serum or plasma urea nitroge n measurement (mass/volume)Ordered By: Keven Marcdollyjuan luis on 06-12-2024 Urea nitrogen [Mass/Vol] 18 mg/dL 4-[address] [facility] Sodium levelOrdered By: Edwarfranny avendano Jaimie on 06-12-2024 Sodium [Moles/Vol] 140 mmol/L 133-145 [facility] White blood cell (WBC) count Ordered By: Keven Etienne on 06-12-2024 WBC (Bld) [#/Vol] 7.0 10*3/uL 4.4-11.0 [facility] Absolute lymphocyte countOrd ered By: Keven Etienne on 06-05-2024 Lymphocytes Auto (Unsp spec) [#/Vol] 2.57 10*3/uL 0.83-4.[address] [facility] Anion gap in Serum or Plasma Ordered By: Keven Etienne on 06-05-2024 Anion gap [Moles/Vol] 10 mmol/L 5-15 [facility] Automated lymphocyte count a s percentage of total leukocytesOrdered By: Keven Etienne on 06-05-2024 Lymphocytes/100 WBC Auto (Unsp spec) 40.3 % 19-[address] [facility] BUN/creatinine ratioOrdered By: Keven Etienne on 06-05-2024 Urea nitrogen/Creatinine [Mass ratio] 17.2 mg/mg 10-[address] [facility] Basophil percentageOrdered B y: Ritacadenkeron Etienne on 06-05-2024 Basophils/100 WBC (Bld) 0.5 % 0-1 [facility] Carbon dioxide, total [Moles /volume] in Central venous bloodOrdered By: Keven Etienne on 06-05-2024 CO2 [Moles/Vol] 25.7 mmol/L 21.0-32.[address] [facility] Chloride assayOrdered By: Edwar frannyjuan alberto Etienne on 06-05-2024 Chloride [Moles/Vol] 106 mmol/L 98-108 [facility] Eosinophil percentageOrdered By: Keven Etienne on 06-05-2024 Eosinophils/100 WBC (Bld) 5.2 % High 0-[address] [facility] Erythrocyte distribution wid th ratioOrdered By: Keven Etienne on 06-05-2024 Erythrocyte distribution width (RBC) [Ratio] 12.5 % 11.6-14.[address] [facility] Erythrocyte distribution wid th standard deviationOrdered By: Keven Etienne on 06-05-2024 Erythrocyte distribution width (RBC) [Ratio] 40.6 fl 35.1-43.[address] [facility] Glomerular filtration rate ( GFR) estimation/1.73 sq m using serum, plasma, or whole bOrdered By: Keven Etienne on 06-05-2024 GFR/1.73 sq M.predicted among non-blacks MDRD (S/P/Bld) [Vol rate/Area] 87 mL/min/{1.73_m2} >[address] [facility] Hematocrit Auto (Bld) [Volum e fraction]Ordered By: Keven Etienne on 06-05-2024 Hematocrit (Bld) [Volume fraction] 35.3 % Low 40-[address] [facility] Hemoglobin measurementOrdere d By: Keven Etienne on 06-05-2024 Hemoglobin (Bld) [Mass/Vol] 11.9 g/dL Low 13.0-16.[address] [facility] Immature granulocytes/100 WB C Auto (Bld)Ordered By: Keven Etienne on 06-05-2024 Immature granulocytes/100 WBC (Bld) 0.300 % 0.0-0.[address] [facility] MCV (mean corpuscular volume ) determinationOrdered By: Keven Etienne on 06-05-2024 MCV (RBC) [Entitic vol] 88.7 fL 80-94 [facility] Mean corpuscular hemoglobin (MCH) determinationOrdered By: Keven Etienne on 06-05-2024 MCH (RBC) [Entitic mass] 29.9 pg 27.0-32.[address] [facility] Monocyte percentageOrdered B y: Keven Etienne on 06-05-2024 Monocytes/100 WBC (Bld) 10.8 % High 0-10 [facility] Neutrophil percentageOrdered By: Keven Etienne on 06-05-2024 Neutrophils/100 WBC (Bld) 42.9 % Low 47-[address] [facility] Platelet countOrdered By: Edwar Etienne on 06-05-2024 Platelets (Bld) [#/Vol] 163 10*3/uL 150-[address] [facility] Potassium measurement (mass/ volume)Ordered By: Keven Monicomarisela on 06-05-2024 Potassium (Unsp spec) [Mass/Vol] 4.2 mmol/L 3.3-5.[address] [facility] RBC Auto (Bld) [#/Vol]Ordere d By: Keven Etienne on 06-05-2024 RBC (Bld) [#/Vol] 3.98 10*6/uL Low 4.6-6.2 [facility] Serum creatinine measurement (mass/volume)Ordered By: Keven Monicomarisela on 06-05-2024 Creatinine [Mass/Vol] 0.86 mg/dL 0.70-1.20 [facility] Serum glucose measurement (m ass/volume)Ordered By: Keven Monicomarisela 06-05-2024 Glucose [Mass/Vol] 95 mg/dL 70-99 [facility] Serum or plasma calcium ratna urement (mass/volume)Ordered By: Keven Monicomarisela 06-05-2024 Calcium [Mass/Vol] 9.0 mg/dL 7.6-11.0 [facility] Serum or plasma urea nitroge n measurement (mass/volume)Ordered By: Keven Monicodollyjuan luis on 06-05-2024 Urea nitrogen [Mass/Vol] 15 mg/dL 4-[address] [facility] Sodium levelOrdered By: Rita Etienne on 06-05-2024 Sodium [Moles/Vol] 142 mmol/L 133-145 [facility] White blood cell (WBC) count Ordered By: Keven Monicomarisela 06-05-2024 WBC (Bld) [#/Vol] 6.4 10*3/uL 4.4-11.0 [facility] Cerv Spine 2 or 3 Viewson Cerv Spine 2 or 3 Views Normal [facility] Orthopedic Visit Reporton Orthopedic Visit Report Normal [facility] Absolute lymphocyte countOrd ered By: Keven Etienne on 05-29-2024 Lymphocytes Auto (Unsp spec) [#/Vol] 2.20 10*3/uL 0.83-4.[address] [facility] Absolute neutrophil countOrd ered By: Keven Etienne on 05-29-2024 Neutrophils (Bld) [#/Vol] 3.3 10*3/uL 2.0-7.[address] [facility] Anion gap in Serum or Plasma Ordered By: Keven Etienne on 05-29-2024 Anion gap [Moles/Vol] 10 mmol/L 5-15 [facility] Automated lymphocyte count a s percentage of total leukocytesOrdered By: Keven Etienne on 05-29-2024 Lymphocytes/100 WBC Auto (Unsp spec) 34.3 % 19-[address] [facility] BUN/creatinine ratioOrdered By: Keven Etienne on 05-29-2024 Urea nitrogen/Creatinine [Mass ratio] 19.7 mg/mg 10-[address] [facility] Basophil percentageOrdered B y: Keven Etienne on 05-29-2024 Basophils/100 WBC (Bld) 0.6 % 0-1 [facility] Carbon dioxide, total [Moles /volume] in Central venous bloodOrdered By: Keven Etienne on 05-29-2024 CO2 [Moles/Vol] 25.2 mmol/L 21.0-32.[address] [facility] Chloride assayOrdered By: Edwar Etienne on 05-29-2024 Chloride [Moles/Vol] 108 mmol/L 98-108 [facility] Eosinophil percentageOrdered By: Keven Etienne on 05-29-2024 Eosinophils/100 WBC (Bld) 4.2 % 0-[address] [facility] Erythrocyte distribution wid th (RBC) [Ratio]Ordered By: Keven Etienne on 05-29-2024 Erythrocyte distribution width (RBC) [Entitic vol] 41.1 fL 35.1-43.[address] [facility] Erythrocyte distribution wid th ratioOrdered By: Keven Etienne on 05-29-2024 Erythrocyte distribution width (RBC) [Ratio] 12.6 % 11.6-14.[address] [facility] Erythrocyte distribution wid th standard deviationOrdered By: Keven Etienne on 05-29-2024 Erythrocyte distribution width (RBC) [Ratio] 41.1 fl 35.1-43.[address] [facility] GFR/1.73 sq M.predicted darrick g non-blacks MDRD (S/P/Bld) [Vol rate/Area]Ordered By: Keven Etienne on 05-29-2024 Estimated GFR (MDRD) Non-Af Amer [address] [facility] Comment on above: mL/min/1.73m2 CKD-EP I Creatinine Equation (2020) Glomerular filtration rate ( GFR) estimation/1.73 sq m using serum, plasma, or whole bOrdered By: Keven Etienne on 05-29-2024 GFR/1.73 sq M.predicted among non-blacks MDRD (S/P/Bld) [Vol rate/Area] 78 mL/min/{1.73_m2} >[address] [facility] Hematocrit Auto (Bld) [Volum e fraction]Ordered By: Keven Etienne on 05-29-2024 Hematocrit (Bld) [Volume fraction] 37.4 % Low 40-[address] [facility] Hemoglobin measurementOrdere d By: Keven Etienne on 05-29-2024 Hemoglobin (Bld) [Mass/Vol] 12.3 g/dL Low 13.0-16.[address] [facility] Immature granulocytes/100 WB C Auto (Bld)Ordered By: Keven Etienne 05-29-2024 Immature granulocytes/100 WBC (Bld) 0.500 % 0.0-0.[address] [facility] Comment on above: IG% - Immature Granu locytes (promyelocytes, myelocytes and metamyelocytes) > 1% indicates that a LEFT SHIFT is Present. Lymphocytes Auto (Unsp spec) [#/Vol]Ordered By: Keven Etienne on 05-29-2024 Lymphocytes (Bld) [#/Vol] 2.20 10*3/uL 0.83-4.[address] [facility] Lymphocytes/100 WBC Auto (Un sp spec)Ordered By: Keven Batemanjuan luis on 05-29-2024 Lymphocytes/100 WBC (Bld) 34.3 % 19-[address] [facility] MCV (mean corpuscular volume ) determinationOrdered By: Keven Monicodollyjuan luis on 05-29-2024 MCV (RBC) [Entitic vol] 89.3 fL 80-94 [facility] Mean corpuscular hemoglobin (MCH) determinationOrdered By: Edwarfrannyjuan alberto Monicodollyjuan luis on 05-29-2024 MCH (RBC) [Entitic mass] 29.4 pg 27.0-32.[address] [facility] Mean corpuscular hemoglobin concentration (MCHC) determinationOrdered By: nitishkeron Monicodollyjuan luis on 05-29-2024 MCHC (RBC) [Mass/Vol] 32.9 g/dL 32-36 [facility] Mean platelet volume determi nationOrdered By: Keven Batemanjuan luis on 05-29-2024 Platelet mean volume (Bld) [Entitic vol] 9.2 fL 6.2-12.[address] [facility] Monocyte percentageOrdered B y: Keven Etienne on 05-29-2024 Monocytes/100 WBC (Bld) 8.4 % 0-10 [facility] Neutrophil percentageOrdered By: Edwarremedios Marcdollyjuan luis on 05-29-2024 Neutrophils/100 WBC (Bld) 52.0 % 47-[address] [facility] Nucleated red blood cell per centageOrdered By: Keven Monicodollyjuan luis on 05-29-2024 Nucleated RBC/100 WBC (Bld) [Ratio] 0 % 0-[address] [facility] Platelet countOrdered By: Edwar Etienne on 05-29-2024 Platelets (Bld) [#/Vol] 185 10*3/uL 150-[address] [facility] Potassium (Unsp spec) [Mass/ Vol]Ordered By: Keven Monicodollyjuan luis on 05-29-2024 Potassium [Moles/Vol] 4.3 mmol/L 3.3-5.1 [facility] Potassium measurement (mass/ volume)Ordered By: Keven Etienne on 05-29-2024 Potassium (Unsp spec) [Mass/Vol] 4.3 mmol/L 3.3-5.[address] [facility] RBC Auto (Bld) [#/Vol]Ordere d By: Keven Etienne on 05-29-2024 RBC (Bld) [#/Vol] 4.19 10*6/uL Low 4.6-6.2 [facility] Serum creatinine measurement (mass/volume)Ordered By: Keven Etienne on 05-29-2024 Creatinine [Mass/Vol] 0.97 mg/dL 0.70-1.20 [facility] Serum glucose measurement (m ass/volume)Ordered By: Keven Etienne on 05-29-2024 Glucose [Mass/Vol] 95 mg/dL 70-99 [facility] Serum or plasma calcium ratna urement (mass/volume)Ordered By: Keven Etienne on 05-29-2024 Calcium [Mass/Vol] 8.8 mg/dL 7.6-11.0 [facility] Serum or plasma urea nitroge n measurement (mass/volume)Ordered By: Keven Etienne on 05-29-2024 Urea nitrogen [Mass/Vol] 19 mg/dL 4-[address] [facility] Sodium levelOrdered By: Rita Etienne on 05-29-2024 Sodium [Moles/Vol] 143 mmol/L 133-145 [facility] White blood cell (WBC) count Ordered By: Keven Etienne on 05-29-2024 WBC (Bld) [#/Vol] 6.4 10*3/uL 4.4-11.0 [facility] Abdomen Single Viewon 2024 Abdomen Single View Normal [facility] Gastroenterology Visit Repor ton 05-25-2024 Gastroenterology Visit Report Normal [facility] Absolute lymphocyte countOrd ered By: Keven Etienne on 05-22-2024 Lymphocytes Auto (Unsp spec) [#/Vol] 2.46 10*3/uL 0.83-4.[address] [facility] Absolute neutrophil countOrd ered By: Keven Etienne on 05-22-2024 Neutrophils (Bld) [#/Vol] 4.3 10*3/uL 2.0-7.[address] [facility] Anion gap in Serum or Plasma Ordered By: Keven Etienne on 05-22-2024 Anion gap [Moles/Vol] 10 mmol/L 5-15 [facility] Automated lymphocyte count a s percentage of total leukocytesOrdered By: Keven Etienne on 05-22-2024 Lymphocytes/100 WBC Auto (Unsp spec) 32.5 % 19-[address] [facility] BUN/creatinine ratioOrdered By: frannynewportkeron Etienne on 05-22-2024 Urea nitrogen/Creatinine [Mass ratio] 24.1 mg/mg High 10-[address] [facility] Basophil percentageOrdered B y: Keven Etienne on 05-22-2024 Basophils/100 WBC (Bld) 0.5 % 0-1 [facility] Bilirubin, totalOrdered By: Keven Etienne on 05-22-2024 Bilirubin [Mass/Vol] 0.44 mg/dL 0.00-1.30 [facility] Carbon dioxide, total [Moles /volume] in Central venous bloodOrdered By: Keven Etienne on 05-22-2024 CO2 [Moles/Vol] 23.9 mmol/L 21.0-32.[address] [facility] Chloride assayOrdered By: Ewdar Etienne on 05-22-2024 Chloride [Moles/Vol] 104 mmol/L 98-108 [facility] Eosinophil percentageOrdered By: Keven Etienne on 05-22-2024 Eosinophils/100 WBC (Bld) 2.5 % 0-[address] [facility] Erythrocyte distribution wid th (RBC) [Ratio]Ordered By: Keven Etienne on 05-22-2024 Erythrocyte distribution width (RBC) [Entitic vol] 41.4 fL 35.1-43.[address] [facility] Erythrocyte distribution wid th ratioOrdered By: [facility] on 05-[facility]24 Erythrocyte distribution width (RBC) [Ratio] 12.7 % 11.6-14.[address] [facility] Erythrocyte distribution wid th standard deviationOrdered By: Keven Etienne on 05-22-2024 Erythrocyte distribution width (RBC) [Ratio] 41.4 fl 35.1-43.[address] [facility] GFR/1.73 sq M.predicted darrick g non-blacks MDRD (S/P/Bld) [Vol rate/Area]Ordered By: Keven Etienne on 05-22-2024 Estimated GFR (MDRD) Non-Af Amer [address] [facility] Comment on above: mL/min/1.73m2 CKD-EP I Creatinine Equation (2020) Glomerular filtration rate ( GFR) estimation/1.73 sq m using serum, plasma, or whole bOrdered By: Keven Etienne on 05-22-2024 GFR/1.73 sq M.predicted among non-blacks MDRD (S/P/Bld) [Vol rate/Area] 73 mL/min/{1.73_m2} >[address] [facility] Hematocrit Auto (Bld) [Volum e fraction]Ordered By: Keven Etienne on 05-22-2024 Hematocrit (Bld) [Volume fraction] 36.8 % Low 40-[address] [facility] Hemoglobin measurementOrdere d By: Keven Etienne 05-22-2024 Hemoglobin (Bld) [Mass/Vol] 12.1 g/dL Low 13.0-16.[address] [facility] Immature granulocytes/100 WB C Auto (Bld)Ordered By: Keven Etienne 05-22-2024 Immature granulocytes/100 WBC (Bld) 0.500 % 0.0-0.[address] [facility] Comment on above: IG% - Immature Granu locytes (promyelocytes, myelocytes and metamyelocytes) > 1% indicates that a LEFT SHIFT is Present. Laboratory - Chemistry and C hemistry - challengeOrdered By: Keven Etienne on 05-22-2024 AST [Catalytic activity/Vol] 33 U/L <[address] [facility] Comment on above: Hemolysis present, R esults could be affected. Lymphocytes Auto (Unsp spec) [#/Vol]Ordered By: Keven Etienne 05-22-2024 Lymphocytes (Bld) [#/Vol] 2.46 10*3/uL 0.83-4.[address] [facility] Lymphocytes/100 WBC Auto (Un sp spec)Ordered By: Keven Etienne on 05-22-2024 Lymphocytes/100 WBC (Bld) 32.5 % 19-[address] [facility] MCV (mean corpuscular volume ) determinationOrdered By: Keven Etienne on 05-22-2024 MCV (RBC) [Entitic vol] 89.1 fL 80-94 [facility] Mean corpuscular hemoglobin (MCH) determinationOrdered By: Keven Etienne on 05-22-2024 MCH (RBC) [Entitic mass] 29.3 pg 27.0-32.[address] [facility] Mean corpuscular hemoglobin concentration (MCHC) determinationOrdered By: eKven Etienne on 05-22-2024 MCHC (RBC) [Mass/Vol] 32.9 g/dL 32-36 [facility] Mean platelet volume determi nationOrdered By: Keven Etienne on 05-22-2024 Platelet mean volume (Bld) [Entitic vol] 8.7 fL 6.2-12.[address] [facility] Monocyte percentageOrdered B y: Keven Etienne on 05-22-2024 Monocytes/100 WBC (Bld) 7.4 % 0-10 [facility] Neutrophil percentageOrdered By: Keven Etienne on 05-22-2024 Neutrophils/100 WBC (Bld) 56.6 % 47-[address] [facility] No Panel InformationOrdered By: Keven Etienne on 05-22-2024 33 U/L <[address] [facility] Nucleated red blood cell per centageOrdered By: Keven Etienne on 05-22-2024 Nucleated RBC/100 WBC (Bld) [Ratio] 0 % 0-[address] [facility] Platelet countOrdered By: Edwar Etienne on 05-22-2024 Platelets (Bld) [#/Vol] 217 10*3/uL 150-[address] [facility] Potassium (Unsp spec) [Mass/ Vol]Ordered By: Keven Etienne on 05-22-2024 Potassium [Moles/Vol] 4.3 mmol/L 3.3-5.1 [facility] Comment on above: Hemolysis present, R esults could be affected. Potassium measurement (mass/ volume)Ordered By: Keven Etienne on 05-22-2024 Potassium (Unsp spec) [Mass/Vol] 4.3 mmol/L 3.3-5.[address] [facility] RBC Auto (Bld) [#/Vol]Ordere d By: Keven Etienne on 05-22-2024 RBC (Bld) [#/Vol] 4.13 10*6/uL Low 4.6-6.2 [facility] Serum creatinine measurement (mass/volume)Ordered By: Keven Etienne on 05-22-2024 Creatinine [Mass/Vol] 1.03 mg/dL 0.70-1.20 [facility] Serum globulin measurementOr dered By: Keven Etienne on 05-22-2024 Globulin (S) [Mass/Vol] 2.4 g/dL 2.2-4.2 [facility] Serum glucose measurement (m ass/volume)Ordered By: Keven Etienne on 05-22-2024 Glucose [Mass/Vol] 91 mg/dL 70-99 [facility] Serum or plasma alanine olmedo otransferase (ALT) measurementOrdered By: Keven Etienne on 05-22-2024 ALT [Catalytic activity/Vol] 44 U/L <[address] [facility] Serum or plasma albumin ratna urement (mass/volume)Ordered By: Keven Etienne 05-22-2024 Albumin [Mass/Vol] 3.3 g/dL Low 3.4-4.8 [facility] Serum or plasma albumin/glob ulin mass ratioOrdered By: Keven Etienne 05-22-2024 Albumin/Globulin [Mass ratio] 1.4 {ratio} 0.9-2.[address] [facility] Serum or plasma alkaline garry sphatase measurementOrdered By: Keven Etienne 05-22-2024 ALP [Catalytic activity/Vol] 139 U/L High 40-[address] [facility] Serum or plasma calcium ratna urement (mass/volume)Ordered By: Keven Etienne on 05-22-2024 Calcium [Mass/Vol] 8.8 mg/dL 7.6-11.0 [facility] Serum or plasma urea nitroge n measurement (mass/volume)Ordered By: Keven Etienne on 05-22-2024 Urea nitrogen [Mass/Vol] 25 mg/dL High 4-[address] [facility] Sodium levelOrdered By: Rita Etienne on 05-22-2024 Sodium [Moles/Vol] 139 mmol/L 133-145 [facility] Total proteinOrdered By: Roby Etienne on 05-22-2024 Protein [Mass/Vol] 5.8 g/dL Low 5.9-8.4 [facility] White blood cell (WBC) count Ordered By: Keven Etienne on 05-22-2024 WBC (Bld) [#/Vol] 7.6 10*3/uL 4.4-11.0 [facility] Urine Cultureon 05-12-[address] [facility] Comment on above: Performed By: #### L 400.0001, M100.2200 ####[facility] [address] [place], [place], [address] Anion gap in Serum or Plasma Ordered By: Corazon Wright on 05-11-2024 Anion gap [Moles/Vol] 10 mmol/L 5-15 [facility] BUN/creatinine ratioOrdered By: Corazon Wright on 05-11-2024 Urea nitrogen/Creatinine [Mass ratio] 35.5 mg/mg High 10-[address] [facility] Basic Metabolic Profile (BMP )on 05-11-2024 BUN/CRE 35.5 RATIO High 11-[address] [facility] Comment on above: Performed By: #### L 100.0500, L500.2500 ####[facility] [address] [place], [address] Calcium [Mass/Vol] 8.6 mg/dL Normal 7.6-11.0 [facility] Comment on above: Performed By: #### L 100.0500, L500.2500 ####[facility] [address] [place], [address] Chloride [Moles/Vol] 104 mmol/L Normal 98-108 [facility] Comment on above: Performed By: #### L 100.0500, L500.2500 ####[facility] [address] [place], [address] CO2 [Moles/Vol] 23.4 mmol/L Normal 21.0-32.[address] [facility] Comment on above: Performed By: #### L 100.0500, L500.2500 ####[facility] [address] [place], [address] Creatinine [Mass/Vol] 0.96 mg/dL Normal 0.70-1.20 [facility] Comment on above: Performed By: #### L 100.0500, L500.2500 ####[facility] [address] [place], [address] ECRCL 57.40 ml/min Normal 50-[address] [facility] Comment on above: Performed By: #### L 100.0500, L500.2500 ####[facility] [address] [place], [address] GAP 10 Normal 5-[address] [facility] Comment on above: Performed By: #### L 100.0500, L500.2500 ####[facility] [address] [place], [address] GFR/1.73 sq M.predicted among non-blacks MDRD (S/P/Bld) [Vol rate/Area] 79 mL/min/{1.73_m2} Normal >[address] [facility] Comment on above: Result Comment: mL/m in/1.73m2 CKD-EPI Creatinine Equation (2020) Performed By: #### L 100.0500, L500.2500 ####[facility] [address] [place], [address] Glucose [Mass/Vol] 116 mg/dL High 70-99 [facility] Comment on above: Performed By: #### L 100.0500, L500.2500 ####[facility] [address] [place], [address] Potassium [Moles/Vol] 4.5 mmol/L Normal 3.3-5.1 [facility] Comment on above: Performed By: #### L 100.0500, L500.2500 ####[facility] [address] [place], [address] Sodium [Moles/Vol] 137 mmol/L Normal 133-145 [facility] Comment on above: Performed By: #### L 100.0500, L500.2500 ####[facility] [address] [place], [address] Urea nitrogen [Mass/Vol] 34 mg/dL High 4-[address] [facility] Comment on above: Performed By: #### L 100.0500, L500.2500 ####[facility] [address] [place], [address] CBC-Complete Blood Cnt No Di ffon 05-11-2024 Erythrocyte distribution width (RBC) [Ratio] 12.8 % Normal 11.6-14.[address] [facility] Comment on above: Performed By: #### L 100.0500, L500.2500 ####[facility] [address] [place], [address] Hematocrit (Bld) [Volume fraction] 36.7 % Low 40-[address] [facility] Comment on above: Performed By: #### L 100.0500, L500.2500 ####[facility] [address] [place], [address] Hemoglobin (Bld) [Mass/Vol] 12.3 g/dL Low 13.0-16.[address] [facility] Comment on above: Performed By: #### L 100.0500, L500.2500 ####[facility] [address] [place], [address] MCH (RBC) [Entitic mass] 29.9 pg Normal 27.0-32.[address] [facility] Comment on above: Performed By: #### L 100.0500, L500.2500 ####[facility] [address] [place], [address] MCHC (RBC) [Mass/Vol] 33.5 g/dL Normal 32-36 [facility] Comment on above: Performed By: #### L 100.0500, L500.2500 ####[facility] [address] [place], [address] MCV (RBC) [Entitic vol] 89.1 fL Normal 80-94 [facility] Comment on above: Performed By: #### L 100.0500, L500.2500 ####[facility] [address] [place], [address] Platelet mean volume (Bld) [Entitic vol] 8.8 fL Normal 6.2-12.[address] [facility] Comment on above: Performed By: #### L 100.0500, L500.2500 ####[facility] [address] [place], [address] Platelets (Bld) [#/Vol] 232 10*3/uL Normal 150-[address] [facility] Comment on above: Performed By: #### L 100.0500, L500.2500 ####[facility] [address] [place], [address] RBC (Bld) [#/Vol] 4.12 10*6/uL Low 4.6-6.2 [facility] Comment on above: Performed By: #### L 100.0500, L500.2500 ####[facility] [address] [place], [address] RDW SD 41.8 fl Normal 35.1-43.[address] [facility] Comment on above: Performed By: #### L 100.0500, L500.2500 ####[facility] [address] [place], [address] WBC (Bld) [#/Vol] 9.9 10*3/uL Normal 4.4-11.0 [facility] Comment on above: Performed By: #### L 100.0500, L500.2500 ####[facility] [address] [place], [address] Carbon dioxide, total [Moles /volume] in Central venous bloodOrdered By: Corazon Wright on 05-11-2024 CO2 [Moles/Vol] 23.4 mmol/L 21.0-32.[address] [facility] Chloride assayOrdered By: Phil Wright on 05-11-2024 Chloride [Moles/Vol] 104 mmol/L 98-108 [facility] Erythrocyte distribution wid th (RBC) [Ratio]Ordered By: Corazon Wright on 05-11-2024 Erythrocyte distribution width (RBC) [Entitic vol] 41.8 fL 35.1-43.[address] [facility] Erythrocyte distribution wid th ratioOrdered By: Corazon Wright on 05-11-2024 Erythrocyte distribution width (RBC) [Ratio] 12.8 % 11.6-14.[address] [facility] Erythrocyte distribution wid th standard deviationOrdered By: Corazon Wright on 05-11-2024 Erythrocyte distribution width (RBC) [Ratio] 41.8 fl 35.1-43.[address] [facility] Estimation of creatinine yahir aranceOrdered By: Corazon Wright on 05-11-2024 Estimated Creatinine Clearance Calc 57.40 ml/min 50-[address] [facility] GFR/1.73 sq M.predicted darrick g non-blacks MDRD (S/P/Bld) [Vol rate/Area]Ordered By: Corazon Wright on 05-11-2024 Estimated GFR (MDRD) Non-Af Amer [address] [facility] Comment on above: mL/min/1.73m2 CKD-EP I Creatinine Equation (2020) Glomerular filtration rate ( GFR) estimation/1.73 sq m using serum, plasma, or whole bOrdered By: Corazon Wright on 05-11-2024 GFR/1.73 sq M.predicted among non-blacks MDRD (S/P/Bld) [Vol rate/Area] 79 mL/min/{1.73_m2} >[address] [facility] Hematocrit Auto (Bld) [Volum e fraction]Ordered By: Corazon Wright on 05-11-2024 Hematocrit (Bld) [Volume fraction] 36.7 % Low 40-[address] [facility] Hemoglobin measurementOrdere d By: Corazon Wright on 05-11-2024 Hemoglobin (Bld) [Mass/Vol] 12.3 g/dL Low 13.0-16.[address] [facility] MCV (mean corpuscular volume ) determinationOrdered By: Corazon Wright on 05-11-2024 MCV (RBC) [Entitic vol] 89.1 fL 80-94 [facility] Mean corpuscular hemoglobin (MCH) determinationOrdered By: Corazon Wright on 05-11-2024 MCH (RBC) [Entitic mass] 29.9 pg 27.0-32.[address] [facility] Mean corpuscular hemoglobin concentration (MCHC) determinationOrdered By: Corazon Wright on 05-11-2024 MCHC (RBC) [Mass/Vol] 33.5 g/dL 32-36 [facility] Mean platelet volume determi nationOrdered By: Corazon Wright on 05-11-2024 Platelet mean volume (Bld) [Entitic vol] 8.8 fL 6.2-12.[address] [facility] Platelet countOrdered By: Phil Wright on 05-11-2024 Platelets (Bld) [#/Vol] 232 10*3/uL 150-[address] [facility] Potassium (Unsp spec) [Mass/ Vol]Ordered By: Corazon Wright on 05-11-2024 Potassium [Moles/Vol] 4.5 mmol/L 3.3-5.1 [facility] Potassium measurement (mass/ volume)Ordered By: Corazon Wright on 05-11-2024 Potassium (Unsp spec) [Mass/Vol] 4.5 mmol/L 3.3-5.[address] [facility] RBC Auto (Bld) [#/Vol]Ordere d By: Corazon Kyle on 05-11-2024 RBC (Bld) [#/Vol] 4.12 10*6/uL Low 4.6-6.2 [facility] Serum creatinine measurement (mass/volume)Ordered By: Corazon Wright on 05-11-2024 Creatinine [Mass/Vol] 0.96 mg/dL 0.70-1.20 [facility] Serum glucose measurement (m ass/volume)Ordered By: Corazon Wright on 05-11-2024 Glucose [Mass/Vol] 116 mg/dL High 70-99 [facility] Serum or plasma calcium ratna urement (mass/volume)Ordered By: Corazon Wright on 05-11-2024 Calcium [Mass/Vol] 8.6 mg/dL 7.6-11.0 [facility] Serum or plasma urea nitroge n measurement (mass/volume)Ordered By: Corazon Wright on 05-11-2024 Urea nitrogen [Mass/Vol] 34 mg/dL High 4-[address] [facility] Sodium levelOrdered By: Corazon Wright on 05-11-2024 Sodium [Moles/Vol] 137 mmol/L 133-145 [facility] White blood cell (WBC) count Ordered By: Corazon Wright on 05-11-2024 WBC (Bld) [#/Vol] 9.9 10*3/uL 4.4-11.0 [facility] Bilirubin Test strip Ql (U)O rdered By: Mariano Chan on 05-10-2024 Bilirubin Ql (U) Negative Negative [facility] Cerv Spine 2 or 3 Viewson Cerv Spine 2 or 3 Views Normal [facility] Epithelial cells.squamous LM Ql (Urine sed)Ordered By: Mariano Chan on 05-10-2024 Epithelial cells.squamous LM.HPF (Urine sed) [#/Area] 0 /[HPF] 0-[address] [facility] Glucose Ql (U)Ordered By: Fabian Chan on 05-10-2024 Urine Glucose (UA) Normal mg/dl Normal [facility] Ketones Test strip Ql (U)Ord ered By: Mariano Chan on 05-10-2024 Ketones Ql (U) Negative Negative [facility] Microscopic analysis of urin e for red blood cells (RBC)Ordered By: Mariano Chan on 05-10-2024 Urine RBC 10-25 SEEN /hpf 0-[address] [facility] Mucus LM Ql (Urine sed)Order ed By: Mariano Chan on 05-10-2024 Mucus Ql (Urine sed) 0 SEEN /hpf [facility] Nitrite Test strip Ql (U)Ord ered By: Mariano Chan on 05-10-2024 Nitrite Ql (U) Positive High Negative [facility] Protein Test strip Ql (U)Ord ered By: Mariano Chan on 05-10-2024 Protein Ql (U) 500 mg/dl High Negative [facility] Squamous epithelial cells de tection in urine sediment by light microscopyOrdered By: Mariano Chan on 05-10-2024 Epithelial cells.squamous LM Ql (Urine sed) 0 SEEN /hpf 0-[address] [facility] Urinalysis, Completeon 05-10 BACTERIA 2+ /hpf Normal None Seen [facility] Comment on above: Order Comment: YOSVANY TER SPECIMEN Performed By: #### L 400.0001, ####[facility] [address] [place], [address] RBC 10-25 SEEN Normal 0-[address] [facility] Comment on above: Order Comment: YOSVANY TER SPECIMEN Performed By: #### L 400.0001, ####[facility] [address] [place], [address] WBC 25-50 SEEN Normal 0-[address] [facility] Comment on above: Order Comment: YOSVANY TER SPECIMEN Performed By: #### L 400.0001, ####[facility] [address] [place], [address] EPI,SQUAMOUS 0 SEEN Normal 0-[address] [facility] Comment on above: Order Comment: YOSVANY TER SPECIMEN Performed By: #### L 400.0001, ####[facility] [address] [place], [address] Mucus Ql (Urine sed) 0 SEEN Normal [facility] Comment on above: Order Comment: YOSVANY TER SPECIMEN Performed By: #### L 400.0001, M100.2200 ####[facility] [address] [place], [address] Urine blood detectionOrdered By: Mariano Chan on 05-10-2024 Urine Occult Blood 250 /ul High Negative [facility] Urine clarityOrdered By: Mariano Chan on 05-10-2024 Clarity (U) Sl. Cloudy Clear [facility] Urine color determinationOrd ered By: Mariano Chan on 05-10-2024 Color (U) Yellow Yellow [facility] Urine cultureOrdered By: Mariano Chan on 05-10-2024 Bacteria identified Cx Nom (U) Enterobacter cloacae complex Abnormal [facility] Urine glucose detectionOrder ed By: Mariano Chan on 05-10-2024 Glucose Ql (U) Normal mg/dl Normal [facility] Urine leukocyte esterase det ection by dipstickOrdered By: Mariano Chan on 05-10-2024 Leukocyte esterase Test strip Ql (U) 500 /ul High Negative [facility] Urine pHOrdered By: Mariano Chan on 05-10-2024 pH (U) 6.0 [pH] 5.0 - 8.[address] [facility] Urine sediment bacteria coun t by microscopy (number/high power field)Ordered By: Mariano Chan on 05-10-2024 Bacteria LM.HPF (Urine sed) [#/Area] 2 /[HPF] None Seen [facility] Urine specific gravity measu rementOrdered By: Mariano Chan on 05-10-2024 Specific gravity (U) [Rel density] 1.015 1.002-1.[address] [facility] Urine urobilinogen measureme ntOrdered By: Mariano Chan on 05-10-2024 Urobilinogen Ql (U) Normal mg/dl Normal [facility] Urobilinogen Ql (U)Ordered B y: Mariano Chan on 05-10-2024 Urine Urobilinogen Normal mg/dl Normal [facility] White blood cell countOrdere d By: Mariano Chan on 05-10-2024 Urine WBC 25-50 SEEN /hpf 0-[address] [facility] White blood cell count 25-50 SEEN /hpf 0-[address] [facility] Modified Barium Swallow Stud yon 05-09-2024 Modified Barium Swallow Study Normal [facility] Basic Metabolic Profile (BMP )on 05-04-2024 BUN/CRE 18.0 RATIO Normal 10-[address] [facility] Comment on above: Performed By: #### L 500.2500 ####[facility] [address] [place], [address] Calcium [Mass/Vol] 8.2 mg/dL Normal 7.6-11.0 [facility] Comment on above: Performed By: #### L 500.2500 ####[facility] [address] [place], [address] Chloride [Moles/Vol] 111 mmol/L High 98-108 [facility] Comment on above: Performed By: #### L 500.2500 ####[facility] [address] [place], [address] CO2 [Moles/Vol] 21.7 mmol/L Normal 21.0-32.[address] [facility] Comment on above: Performed By: #### L 500.2500 ####[facility] [address] [place], [address] Creatinine [Mass/Vol] 0.73 mg/dL Normal 0.70-1.20 [facility] Comment on above: Performed By: #### L 500.2500 ####[facility] [address] [place], [address] ECRCL 68.88 ml/min Normal 50-[address] [facility] Comment on above: Performed By: #### L 500.2500 ####[facility] [address] [place], [address] GAP 8 Normal 5-[address] [facility] Comment on above: Performed By: #### L 500.2500 ####[facility] [address] [place], [address] GFR/1.73 sq M.predicted among non-blacks MDRD (S/P/Bld) [Vol rate/Area] 91 mL/min/{1.73_m2} Normal >[address] [facility] Comment on above: Result Comment: mL/m in/1.73m2 CKD-EPI Creatinine Equation (2020) Performed By: #### L 500.2500 ####[facility] [address] [place], [address] Glucose [Mass/Vol] 99 mg/dL Normal 70-99 [facility] Comment on above: Performed By: #### L 500.2500 ####[facility] [address] [place], [address] Potassium [Moles/Vol] 4.2 mmol/L Normal 3.3-5.1 [facility] Comment on above: Performed By: #### L 500.2500 ####[facility] [address] [place], [address] Sodium [Moles/Vol] 140 mmol/L Normal 133-145 [facility] Comment on above: Performed By: #### L 500.2500 ####[facility] [address] [place], [address] Urea nitrogen [Mass/Vol] 13 mg/dL Normal 4-[address] [facility] Comment on above: Performed By: #### L 500.2500 ####[facility] [address] [place], [address] HH, Hemoglobin AND Hematocri ton 05-04-2024 Hematocrit (Bld) [Volume fraction] 37.1 % Low 40-[address] [facility] Comment on above: Performed By: #### L 100.0600 ####[facility] [address] [place], [address] Hemoglobin (Bld) [Mass/Vol] 12.5 g/dL Low 13.0-16.[address] [facility] Comment on above: Performed By: #### L 100.0600 ####[facility] [address] [place], [address] HH, Hemoglobin AND Hematocri ton 05-03-2024 Hematocrit (Bld) [Volume fraction] 38.8 % Low 40-[address] [facility] Comment on above: Performed By: #### L 100.0600 ####[facility] [address] [place], [address] Hemoglobin (Bld) [Mass/Vol] 12.9 g/dL Low 13.0-16.[address] [facility] Comment on above: Performed By: #### L 100.0600 ####[facility] [facility] [address] [place], [address] SP/SP.FEESon 05-02-2024 SP/SP.FEES Normal [facility] Basic Metabolic Profile (BMP )on 05-01-2024 BUN/CRE 21.7 RATIO High 10-[address] [facility] Comment on above: Performed By: #### L 500.2500, L501.2300, L100.0500 ####[facility] [address] [place], [address] Calcium [Mass/Vol] 8.1 mg/dL Normal 7.6-11.0 [facility] Comment on above: Performed By: #### L 500.2500, L501.2300, L100.0500 ####[facility] [address] [place], [address] Chloride [Moles/Vol] 109 mmol/L High 98-108 [facility] Comment on above: Performed By: #### L 500.2500, L501.2300, L100.0500 ####[facility] [address] [place], [address] CO2 [Moles/Vol] 23.7 mmol/L Normal 21.0-32.[address] [facility] Comment on above: Performed By: #### L 500.2500, L501.2300, L100.0500 ####[facility] [address] [place], [address] Creatinine [Mass/Vol] 0.74 mg/dL Normal 0.70-1.20 [facility] Comment on above: Performed By: #### L 500.2500, L501.2300, L100.0500 ####[facility] [address] [place], [address] ECRCL 68.88 ml/min Normal 50-[address] [facility] Comment on above: Performed By: #### L 500.2500, L501.2300, L100.0500 ####[facility] [address] [place], [address] GAP 8 Normal 5-[address] [facility] Comment on above: Performed By: #### L 500.2500, L501.2300, L100.0500 ####[facility] [address] [place], [address] GFR/1.73 sq M.predicted among non-blacks MDRD (S/P/Bld) [Vol rate/Area] 91 mL/min/{1.73_m2} Normal >[address] [facility] Comment on above: Result Comment: mL/m in/1.73m2 CKD-EPI Creatinine Equation (2020) Performed By: #### L 500.2500, L501.2300, L100.0500 ####[facility] [address] [place], [address] Glucose [Mass/Vol] 99 mg/dL Normal 70-99 [facility] Comment on above: Performed By: #### L 500.2500, L501.2300, L100.0500 ####[facility] [address] [place], [address] Potassium [Moles/Vol] 4.5 mmol/L Normal 3.3-5.1 [facility] Comment on above: Performed By: #### L 500.2500, L501.2300, L100.0500 ####[facility] [address] [place], [address] Sodium [Moles/Vol] 141 mmol/L Normal 133-145 [facility] Comment on above: Performed By: #### L 500.2500, L501.2300, L100.0500 ####[facility] [address] [place], [address] Urea nitrogen [Mass/Vol] 16 mg/dL Normal 4-[address] [facility] Comment on above: Performed By: #### L 500.2500, L501.2300, L100.0500 ####[facility] [address] [place], [address] CBC-Complete Blood Cnt No Di ffon 05-01-2024 Erythrocyte distribution width (RBC) [Ratio] 12.8 % Normal 11.6-14.[address] [facility] Comment on above: Performed By: #### L 500.2500, L501.2300, L100.0500 ####[facility] [address] [place], [address] Hematocrit (Bld) [Volume fraction] 35.2 % Low 40-[address] [facility] Comment on above: Performed By: #### L 500.2500, L501.2300, L100.0500 ####[facility] [address] [place], [address] Hemoglobin (Bld) [Mass/Vol] 11.9 g/dL Low 13.0-16.[address] [facility] Comment on above: Performed By: #### L 500.2500, L501.2300, L100.0500 ####[facility] [address] [place], [address] MCH (RBC) [Entitic mass] 30.2 pg Normal 27.0-32.[address] [facility] Comment on above: Performed By: #### L 500.2500, L501.2300, L100.0500 ####[facility] [address] [place], [address] MCHC (RBC) [Mass/Vol] 33.8 g/dL Normal 32-36 [facility] Comment on above: Performed By: #### L 500.2500, L501.2300, L100.0500 ####[facility] [address] [place], [address] MCV (RBC) [Entitic vol] 89.3 fL Normal 80-94 [facility] Comment on above: Performed By: #### L 500.2500, L501.2300, L100.0500 ####[facility] [address] [place], [address] Platelet mean volume (Bld) [Entitic vol] 8.6 fL Normal 6.2-12.[address] [facility] Comment on above: Performed By: #### L 500.2500, L501.2300, L100.0500 ####[facility] [address] [place], [address] Platelets (Bld) [#/Vol] 149 10*3/uL Low 150-[address] [facility] Comment on above: Performed By: #### L 500.2500, L501.2300, L100.0500 ####[facility] [address] [place], [address] RBC (Bld) [#/Vol] 3.94 10*6/uL Low 4.6-6.2 [facility] Comment on above: Performed By: #### L 500.2500, L501.2300, L100.0500 ####[facility] [address] [place], [address] RDW SD 41.9 fl Normal 35.1-43.[address] [facility] Comment on above: Performed By: #### L 500.2500, L501.2300, L100.0500 ####[facility] [address] [place], [address] WBC (Bld) [#/Vol] 8.4 10*3/uL Normal 4.4-11.0 [facility] Comment on above: Performed By: #### L 500.2500, L501.2300, L100.0500 ####[facility] [address] [place], [address] Electrocardiogram reportOrde red By: David Granados on 05-01-2024 EKG study [facility] [address] [place] [address] 12 Lead EKG 04/30/24 1706 MR#: [id number] Acct: [id number] Name: YAS ROSA Rep #:[id number] : 1940 83 From: David Granados MD [...] was found Confirmed by DAVID GRANADOS MD ([id number]), digital editor LEANDER BRAY ([id number]) on :48:33 AM Referred By: Corazon Wright Confirmed By: DAVID GRANADOS MD 05/01/24 0948 Date _ David Granados MD CC: Dr. Kwabena Menjivar MD; Dr. Corazon Wright, DO ~ Signed [facility] Work Phone: Phosphoruson 05-01-2024 Phosphate [Mass/Vol] 3.3 mg/dL Normal 2.7-4.5 [facility] Comment on above: Performed By: #### L 500.2500, L501.2300, L100.0500 ####[facility] [address] [place], [address] Serum phosphorus measurement Ordered By: Corazon Wright on 05-01-2024 Phosphorus Level 3.3 mg/dL 2.7-4.[address] [facility] 12 Lead EKGon 04-30-2024 12 Lead EKG Normal [facility] CBC-Complete Blood Cnt No Di ffon 04-29-2024 HCT Normal 40-[address] [facility] Comment on above: Result Comment: Canc elled via OM: MD Ordered Performed By: #### L 100.0500 ####[facility] [address] [place], [address] HGB Normal 13.0-16.[address] [facility] Comment on above: Result Comment: Canc elled via OM: MD Ordered Performed By: #### L 100.0500 ####[facility] [address] [place], [address] MCH Normal 27.0-32.[address] [facility] Comment on above: Result Comment: Canc elled via OM: MD Ordered Performed By: #### L 100.0500 ####[facility] [address] [place], [address] MCHC Normal 32-[address] [facility] Comment on above: Result Comment: Canc elled via OM: MD Ordered Performed By: #### L 100.0500 ####[facility] [address] [place], [address] MCV Normal 80-[address] [facility] Comment on above: Result Comment: Canc elled via OM: MD Ordered Performed By: #### L 100.0500 ####[facility] [address] [place], [address] PLT Normal 150-[address] [facility] Comment on above: Result Comment: Canc elled via OM: MD Ordered Performed By: #### L 100.0500 ####[facility] [address] [place], [address] RBC Normal 4.6-6.[address] [facility] Comment on above: Result Comment: Canc elled via OM: MD Ordered Performed By: #### L 100.0500 ####[facility] [address] [place], [address] RDW CV Normal 11.6-14.[address] [facility] Comment on above: Result Comment: Canc elled via OM: MD Ordered Performed By: #### L 100.0500 ####[facility] [address] [place], [address] RDW SD Normal 35.1-43.[address] [facility] Comment on above: Result Comment: Canc elled via OM: MD Ordered Performed By: #### L 100.0500 ####[facility] [address] [place], [address] WBC Normal 4.4-11.[address] [facility] Comment on above: Result Comment: Canc elled via OM: MD Ordered Performed By: #### L 100.0500 ####[facility] [address] [place], [address] L509.6001on 04-29-2024 CORTISOL 25.80 ug/dL High 6.02-18.[address] [facility] Comment on above: Order Comment: Must be drawn 30-60 min AFTER cosyntropin admin. Performed By: #### L 509.6001 ####[facility] [address] [place], [address] CORTISOL 11.10 ug/dL Normal 6.02-18.[address] [facility] Comment on above: Order Comment: must be performed shortly BEFORE cosyntropin admin Performed By: #### L 509.6001 ####[facility] [address] [place], [address] Lower GI hemoglobin IA Ql (S tl)Ordered By: Corazon Wright on 04-29-2024 Stool Occult Blood (JERMAINE) [facility] No Panel InformationOrdered By: Corazon Wright on 04-29-2024 Cortisol AM Sample 25.80 ug/dL High 6.02-18.40 [facility] 25.80 ug/dL High 6.02-18.[address] [facility] Stool Occult Blood iFOBon STOB Negative Normal [facility] Comment on above: Performed By: #### M 100.7900 ####[facility] [address] [place], [address] Stool gastrointestinal hemog lobin detection by immunologic methodOrdered By: Corazon Wright on 04-29-2024 Lower GI hemoglobin IA Ql (Stl) [facility] Urine Cultureon 04-29-2024 URC Culture exhibits no growth. Normal [facility] Comment on above: Performed By: #### M 100.2200 ####[facility] [address] [place], [address] Basic Metabolic Profile (BMP )on 04-28-2024 BUN/CRE 30.3 RATIO High 10-[address] [facility] Comment on above: Performed By: #### L 501.5200, L501.2300, L100.0500, L500.2500 ####[facility] [address] [place], [address] Calcium [Mass/Vol] 8.0 mg/dL Normal 7.6-11.0 [facility] Comment on above: Performed By: #### L 501.5200, L501.2300, L100.0500, L500.2500 ####[facility] [address] [place], [address] Chloride [Moles/Vol] 106 mmol/L Normal 98-108 [facility] Comment on above: Performed By: #### L 501.5200, L501.2300, L100.0500, L500.2500 ####[facility] [address] [place], [address] CO2 [Moles/Vol] 22.8 mmol/L Normal 21.0-32.[address] [facility] Comment on above: Performed By: #### L 501.5200, L501.2300, L100.0500, L500.2500 ####[facility] [address] [place], [address] Creatinine [Mass/Vol] 0.89 mg/dL Normal 0.70-1.20 [facility] Comment on above: Performed By: #### L 501.5200, L501.2300, L100.0500, L500.2500 ####[facility] [address] [place], [address] ECRCL 61.91 ml/min Normal 50-[address] [facility] Comment on above: Performed By: #### L 501.5200, L501.2300, L100.0500, L500.2500 ####[facility] [address] [place], [address] GAP 8 Normal 5-[address] [facility] Comment on above: Performed By: #### L 501.5200, L501.2300, L100.0500, L500.2500 ####[facility] [address] [place], [address] GFR/1.73 sq M.predicted among non-blacks MDRD (S/P/Bld) [Vol rate/Area] 86 mL/min/{1.73_m2} Normal >[address] [facility] Comment on above: Result Comment: mL/m in/1.73m2 CKD-EPI Creatinine Equation (2020) Performed By: #### L 501.5200, L501.2300, L100.0500, L500.2500 ####[facility] [address] [place], [address] Glucose [Mass/Vol] 91 mg/dL Normal 70-99 [facility] Comment on above: Performed By: #### L 501.5200, L501.2300, L100.0500, L500.2500 ####[facility] [address] [place], [address] Potassium [Moles/Vol] 4.6 mmol/L Normal 3.3-5.1 [facility] Comment on above: Performed By: #### L 501.5200, L501.2300, L100.0500, L500.2500 ####[facility] [address] [place], [address] Sodium [Moles/Vol] 137 mmol/L Normal 133-145 [facility] Comment on above: Performed By: #### L 501.5200, L501.2300, L100.0500, L500.2500 ####[facility] [address] [place], [address] Urea nitrogen [Mass/Vol] 27 mg/dL High 4-[address] [facility] Comment on above: Performed By: #### L 501.5200, L501.2300, L100.0500, L500.2500 ####[facility] [address] [place], [address] BUN Normal - [facility] Comment on above: Result Comment: Canc elled via OM: Order cancelled - Patient discharged Performed By: #### L 500.2500 ####[facility] [address] [place], [address] BUN/CRE Normal 10-[address] [facility] Comment on above: Result Comment: Canc elled via OM: Order cancelled - Patient discharged Performed By: #### L 500.2500 ####[facility] [address] [place], [address] Calcium Normal 7.6-11.[address] [facility] Comment on above: Result Comment: Canc elled via OM: Order cancelled - Patient discharged Performed By: #### L 500.2500 ####[facility] [address] [place], [address] CL Normal 98-[address] [facility] Comment on above: Result Comment: Canc elled via OM: Order cancelled - Patient discharged Performed By: #### L 500.2500 ####[facility] [address] [place], [address] CO2 Normal 21.0-32.[address] [facility] Comment on above: Result Comment: Canc elled via OM: Order cancelled - Patient discharged Performed By: #### L 500.2500 ####[facility] [address] [place], [address] CREAT,SERUM Normal 0.70-1.[address] [facility] Comment on above: Result Comment: Canc elled via OM: Order cancelled - Patient discharged Performed By: #### L 500.2500 ####[facility] [address] [place], [address] eGFR Normal >[address] [facility] Comment on above: Result Comment: Canc elled via OM: Order cancelled - Patient discharged Performed By: #### L 500.2500 ####[facility] [address] [place], [address] GAP Normal 5-[address] [facility] Comment on above: Result Comment: Canc elled via OM: Order cancelled - Patient discharged Performed By: #### L 500.2500 ####[facility] [address] [place], [address] GLU Normal 70-[address] [facility] Comment on above: Result Comment: Canc elled via OM: Order cancelled - Patient discharged Performed By: #### L 500.2500 ####[facility] [address] [place], [address] Potassium Normal 3.3-5.[address] [facility] Comment on above: Result Comment: Canc elled via OM: Order cancelled - Patient discharged Performed By: #### L 500.2500 ####[facility] [address] [place], [address] Basic Metabolic Profile (BMP) Normal 133-[address] [facility] Comment on above: Result Comment: Canc elled via OM: Order cancelled - Patient discharged Performed By: #### L 500.2500 ####[facility] [address] [place], [address] Bilirubin directOrdered By: Corazon Romogavin on 04-28-2024 Bilirubin.direct [Mass/Vol] 0.18 mg/dL 0.00-0.[address] [facility] Bilirubin, totalOrdered By: Corazon Romogavin on 04-28-2024 Bilirubin [Mass/Vol] 0.37 mg/dL 0.00-1.30 [facility] CBC W/Diff, Automatedon 03-2 Absolute Neut Normal 2.0-7.[address] [facility] Comment on above: Result Comment: Canc elled via OM: Order cancelled - Patient discharged Performed By: #### L 100.0100 ####[facility] [address] [place], [address] HCT Normal 40-[address] [facility] Comment on above: Result Comment: Canc elled via OM: Order cancelled - Patient discharged Performed By: #### L 100.0100 ####[facility] [address] [place], [address] HGB Normal 13.0-16.[address] [facility] Comment on above: Result Comment: Canc elled via OM: Order cancelled - Patient discharged Performed By: #### L 100.0100 ####[facility] [address] [place], [address] MCH Normal 27.0-32.[address] [facility] Comment on above: Result Comment: Canc elled via OM: Order cancelled - Patient discharged Performed By: #### L 100.0100 ####[facility] [address] [place], [address] MCHC Normal 32-[address] [facility] Comment on above: Result Comment: Canc elled via OM: Order cancelled - Patient discharged Performed By: #### L 100.0100 ####[facility] [address] [place], [address] MCV Normal 80-[address] [facility] Comment on above: Result Comment: Canc elled via OM: Order cancelled - Patient discharged Performed By: #### L 100.0100 ####[facility] [address] [place], [address] NEUT% Normal 47-[address] [facility] Comment on above: Result Comment: Canc elled via OM: Order cancelled - Patient discharged Performed By: #### L 100.0100 ####[facility] [address] [place], [address] PLT Normal 150-[address] [facility] Comment on above: Result Comment: Canc elled via OM: Order cancelled - Patient discharged Performed By: #### L 100.0100 ####[facility] [address] [place], [address] RBC Normal 4.6-6.[address] [facility] Comment on above: Result Comment: Canc elled via OM: Order cancelled - Patient discharged Performed By: #### L 100.0100 ####[facility] [address] [place], [address] RDW CV Normal 11.6-14.[address] [facility] Comment on above: Result Comment: Canc elled via OM: Order cancelled - Patient discharged Performed By: #### L 100.0100 ####[facility] [address] [place], [address] RDW SD Normal 35.1-43.[address] [facility] Comment on above: Result Comment: Canc elled via OM: Order cancelled - Patient discharged Performed By: #### L 100.0100 ####[facility] [address] [place], [address] WBC Normal 4.4-11.[address] [facility] Comment on above: Result Comment: Canc elled via OM: Order cancelled - Patient discharged Performed By: #### L 100.0100 ####[facility] [address] [place], [address] CBC-Complete Blood Cnt No Di ffon 04-28-2024 Erythrocyte distribution width (RBC) [Ratio] 12.7 % Normal 11.6-14.[address] [facility] Comment on above: Performed By: #### L 501.5200, L501.2300, L100.0500, L500.2500 ####[facility] [address] [place], [address] Hematocrit (Bld) [Volume fraction] 35.3 % Low 40-[address] [facility] Comment on above: Performed By: #### L 501.5200, L501.2300, L100.0500, L500.2500 ####[facility] [address] [place], [address] Hemoglobin (Bld) [Mass/Vol] 12.4 g/dL Low 13.0-16.[address] [facility] Comment on above: Performed By: #### L 501.5200, L501.2300, L100.0500, L500.2500 ####[facility] [address] [place], [address] MCH (RBC) [Entitic mass] 30.6 pg Normal 27.0-32.[address] [facility] Comment on above: Performed By: #### L 501.5200, L501.2300, L100.0500, L500.2500 ####[facility] [address] [place], [address] MCHC (RBC) [Mass/Vol] 35.1 g/dL Normal 32-36 [facility] Comment on above: Performed By: #### L 501.5200, L501.2300, L100.0500, L500.2500 ####[facility] [address] [place], [address] MCV (RBC) [Entitic vol] 87.2 fL Normal 80-94 [facility] Comment on above: Performed By: #### L 501.5200, L501.2300, L100.0500, L500.2500 ####[facility] [address] [place], [address] Platelet mean volume (Bld) [Entitic vol] 8.8 fL Normal 6.2-12.[address] [facility] Comment on above: Performed By: #### L 501.5200, L501.2300, L100.0500, L500.2500 ####[facility] [address] [place], [address] Platelets (Bld) [#/Vol] 164 10*3/uL Normal 150-[address] [facility] Comment on above: Performed By: #### L 501.5200, L501.2300, L100.0500, L500.2500 ####[facility] [address] [place], [address] RBC (Bld) [#/Vol] 4.05 10*6/uL Low 4.6-6.2 [facility] Comment on above: Performed By: #### L 501.5200, L501.2300, L100.0500, L500.2500 ####[facility] [address] [place], [address] RDW SD 40.3 fl Normal 35.1-43.[address] [facility] Comment on above: Performed By: #### L 501.5200, L501.2300, L100.0500, L500.2500 ####[facility] [address] [place], [address] WBC (Bld) [#/Vol] 11.3 10*3/uL High 4.4-11.0 [facility] Comment on above: Performed By: #### L 501.5200, L501.2300, L100.0500, L500.2500 ####[facility] [address] [place], [address] L509.6001on 04-28-2024 CORTISOL 3.92 ug/dL Low 6.02-18.[address] [facility] Comment on above: Order Comment: Cecelia snyder use the blood drawn this AM Performed By: #### L 509.6001 ####[facility] [address] [place], [address] Laboratory - Chemistry and C hemistry - challengeOrdered By: Corazon Wright on 04-28-2024 AST [Catalytic activity/Vol] 25 U/L <[address] [facility] Liver Profileon 04-28-2024 Albumin [Mass/Vol] 3.1 g/dL Low 3.4-4.8 [facility] Comment on above: Performed By: #### L 501.9520, L500.3400 ####[facility] [address] [place], [address] ALK PHOS 70 U/L Normal 40-[address] [facility] Comment on above: Performed By: #### L 501.9520, L500.3400 ####[facility] [address] [place], [address] ALT [Catalytic activity/Vol] 44 U/L Normal <=[address] [facility] Comment on above: Performed By: #### L 501.9520, L500.3400 ####[facility] [address] [place], [address] AST [Catalytic activity/Vol] 25 U/L Normal <=[address] [facility] Comment on above: Performed By: #### L 501.9520, L500.3400 ####[facility] [address] [place], [address] Bilirubin [Mass/Vol] 0.37 mg/dL Normal 0.00-1.30 [facility] Comment on above: Performed By: #### L 501.9520, L500.3400 ####[facility] [address] [place], [address] Bilirubin.direct [Mass/Vol] 0.18 mg/dL Normal 0.00-0.[address] [facility] Comment on above: Performed By: #### L 501.9520, L500.3400 ####[facility] [address] [place], [address] Globulin (S) [Mass/Vol] 2.0 g/dL Low 2.2-4.2 [facility] Comment on above: Performed By: #### L 501.9520, L500.3400 ####[facility] [address] [place], [address] T PROT 5.1 g/dL Low 5.9-8.[address] [facility] Comment on above: Performed By: #### L 501.9520, L500.3400 ####[facility] [address] [place], [address] Magnesiumon 04-28-2024 Magnesium [Mass/Vol] 2.6 mg/dL High 1.5-2.2 [facility] Comment on above: Performed By: #### L 501.5200, L501.2300, L100.0500, L500.2500 ####[facility] [address] [place], [address] Magnesium (Unsp spec) [Mass/ Vol]Ordered By: Corazon Wright on 04-28-2024 Magnesium [Mass/Vol] 2.6 mg/dL High 1.5-2.2 [facility] Magnesium measurement (mass/ volume)Ordered By: Corazon Wright on 04-28-2024 Magnesium (Unsp spec) [Mass/Vol] 2.6 mg/dL High 1.5-2.[address] [facility] No Panel InformationOrdered By: Corazon Wright on 04-28-2024 25 U/L <[address] [facility] PSA, total screeningOrdered By: Corazon Wright on 04-28-2024 Prostate Specific Antigen Screen 0.33 ng/mL 0.02-4.[address] [facility] Comment on above: This test was [...] 04-28-2024 PSA,TOT SCREEN 0.33 ng/mL Normal 0.02-4.[address] [facility] Comment on above: Result Comment: This test was performed using the [employer] tPSAmethod. Measured values of a patient??sample can varydepending on the testing procedure used. PSA valuesdetermined on patient samples by different testingprocedures cannot be used interchangeably. If there is achange in PSA assays while monitoring therapy, sequentialtesting should be performed to confirm baseline values. Performed By: #### L 501.9910 ####[facility] [address] [place], [address] Phosphoruson 04-28-2024 Phosphate [Mass/Vol] 2.4 mg/dL Low 2.7-4.5 [facility] Comment on above: Performed By: #### L 501.5200, L501.2300, L100.0500, L500.2500 ####[facility] [address] [place], [place], [id number] Serum globulin measurementOr dered By: Corazon Kyle on 04-28-2024 Globulin (S) [Mass/Vol] 2.0 g/dL Low 2.2-4.2 [facility] Serum or plasma alanine olmedo otransferase (ALT) measurementOrdered By: Corazon Kyle on 04-28-2024 ALT [Catalytic activity/Vol] 44 U/L <[address] [facility] Serum or plasma albumin ratna urement (mass/volume)Ordered By: Corazon Kyle on 04-28-2024 Albumin [Mass/Vol] 3.1 g/dL Low 3.4-4.8 [facility] Serum or plasma alkaline garry sphatase measurementOrdered By: Corazon Kyle on 04-28-2024 ALP [Catalytic activity/Vol] 70 U/L 40-[address] [facility] TSH DL <= 0.005 mIU/L QnOrde red By: Corazon Kyle on 04-28-2024 Thyroid Stimulating Hormone (TSH) 1.030 uIU/mL 0.300-4.[address] [facility] TSH Qn 1.030 uIU/mL 0.300-4.[address] [facility] Thyroid Stim Hormone (TSH)on 04-28-2024 TSH 1.030 uIU/mL Normal 0.300-4.[address] [facility] Comment on above: Performed By: #### L 501.9520, L500.3400 ####[facility] [address] [place], [place], [id number] Total proteinOrdered By: Aura saman Wright on 04-28-2024 Protein [Mass/Vol] 5.1 g/dL Low 5.9-8.4 [facility] Urinalysis, Completeon 04-28 RBC 0 SEEN Normal 0-[address] [facility] Comment on above: Order Comment: YOSVANY PARIS SPECIMEN Performed By: #### L 400.0001 ####[facility] [address] [place], [address] Absolute lymphocyte countOrd ered By: Harish Baxter on 04-27-2024 Lymphocytes Auto (Unsp spec) [#/Vol] 1.59 10*3/uL 0.83-4.[address] [facility] Absolute neutrophil countOrd ered By: Harish Baxter on 04-27-2024 Neutrophils (Bld) [#/Vol] 8.8 10*3/uL High 2.0-7.[address] [facility] Anion gap in Serum or Plasma Ordered By: Harish Baxter on 04-27-2024 Anion gap [Moles/Vol] 12 mmol/L 5-15 [facility] Automated lymphocyte count a s percentage of total leukocytesOrdered By: Harish Baxter on 04-27-2024 Lymphocytes/100 WBC Auto (Unsp spec) 14.3 % Low 19-[address] [facility] BUN/creatinine ratioOrdered By: Harish Baxter on 04-27-2024 Urea nitrogen/Creatinine [Mass ratio] 21.3 mg/mg High 10-[address] [facility] Basic Metabolic Profile (BMP )on 04-27-2024 BUN/CRE 21.3 RATIO High - [facility] Comment on above: Performed By: #### L 500.2500 ####[facility] [address] [place], [address] Calcium [Mass/Vol] 8.2 mg/dL Normal 7.6-11.0 [facility] Comment on above: Performed By: #### L 500.2500 ####[facility] [address] [place], [address] Chloride [Moles/Vol] 103 mmol/L Normal 98-108 [facility] Comment on above: Performed By: #### L 500.2500 ####[facility] [address] [place], [address] CO2 [Moles/Vol] 20.1 mmol/L Low 21.0-32.[address] [facility] Comment on above: Performed By: #### L 500.2500 ####[facility] [address] [place], [address] Creatinine [Mass/Vol] 0.91 mg/dL Normal 0.70-1.20 [facility] Comment on above: Performed By: #### L 500.2500 ####[facility] [address] [place], [address] ECRCL 60.55 ml/min Normal 50-[address] [facility] Comment on above: Performed By: #### L 500.2500 ####[facility] [address] [place], [address] GAP 12 Normal 5-[address] [facility] Comment on above: Performed By: #### L 500.2500 ####[facility] [address] [place], [address] GFR/1.73 sq M.predicted among non-blacks MDRD (S/P/Bld) [Vol rate/Area] 84 mL/min/{1.73_m2} Normal >[address] [facility] Comment on above: Result Comment: mL/m in/1.73m2 CKD-EPI Creatinine Equation (2020) Performed By: #### L 500.2500 ####[facility] [address] [place], [address] Glucose [Mass/Vol] 123 mg/dL High 70-99 [facility] Comment on above: Performed By: #### L 500.2500 ####[facility] [address] [place], [address] Potassium [Moles/Vol] 4.6 mmol/L Normal 3.3-5.1 [facility] Comment on above: Performed By: #### L 500.2500 ####[facility] [address] [place], [address] Sodium [Moles/Vol] 136 mmol/L Normal 133-145 [facility] Comment on above: Performed By: #### L 500.2500 ####[facility] [address] [place], [address] Urea nitrogen [Mass/Vol] 19 mg/dL Normal 4-[address] [facility] Comment on above: Performed By: #### L 500.2500 ####[facility] [address] [place], [address] BUN Normal 4-[address] [facility] Comment on above: Result Comment: Canc elled via OM: MD Ordered Performed By: #### L 100.0500, L500.2500 ####[facility] [address] [place], [address] BUN/CRE Normal 10-[address] [facility] Comment on above: Result Comment: Canc elled via OM: MD Ordered Performed By: #### L 100.0500, L500.2500 ####[facility] [address] [place], [address] Calcium Normal 7.6-11.[address] [facility] Comment on above: Result Comment: Canc elled via OM: MD Ordered Performed By: #### L 100.0500, L500.2500 ####[facility] [address] [place], [address] CL Normal 98-[address] [facility] Comment on above: Result Comment: Canc elled via OM: MD Ordered Performed By: #### L 100.0500, L500.2500 ####[facility] [address] [place], [address] CO2 Normal 21.0-32.[address] [facility] Comment on above: Result Comment: Canc elled via OM: MD Ordered Performed By: #### L 100.0500, L500.2500 ####[facility] [address] [place], [address] CREAT,SERUM Normal 0.70-1.[address] [facility] Comment on above: Result Comment: Canc elled via OM: MD Ordered Performed By: #### L 100.0500, L500.2500 ####[facility] [address] [place], [address] eGFR Normal >[address] [facility] Comment on above: Result Comment: Canc elled via OM: MD Ordered Performed By: #### L 100.0500, L500.2500 ####[facility] [address] [place], [address] GAP Normal 5-[address] [facility] Comment on above: Result Comment: Canc elled via OM: MD Ordered Performed By: #### L 100.0500, L500.2500 ####[facility] [address] [place], [address] GLU Normal 70-[address] [facility] Comment on above: Result Comment: Canc elled via OM: MD Ordered Performed By: #### L 100.0500, L500.2500 ####[facility] [address] [place], [address] Potassium Normal 3.3-5.[address] [facility] Comment on above: Result Comment: Canc elled via OM: MD Ordered Performed By: #### L 100.0500, L500.2500 ####[facility] [address] [place], [address] Basic Metabolic Profile (BMP) Normal 133-[address] [facility] Comment on above: Result Comment: Canc elled via OM: MD Ordered Performed By: #### L 100.0500, L500.2500 ####[facility] [address] [place], [address] Basophil percentageOrdered B y: Harish Baxter on 04-27-2024 Basophils/100 WBC (Bld) 0.2 % 0-1 [facility] CBC W/Diff, Automatedon 04-09 Absolute Lymph 1.59 X10 3/uL Normal 0.83-4.[address] [facility] Comment on above: Performed By: #### L 100.0100 ####[facility] [address] [place], [address] Absolute Neut 8.8 X10 3/uL High 2.0-7.[address] [facility] Comment on above: Performed By: #### L 100.0100 ####[facility] [address] [place], [address] Basophils/100 WBC (Bld) 0.2 % Normal 0-1 [facility] Comment on above: Performed By: #### L 100.0100 ####[facility] [address] [place], [address] Eosinophils/100 WBC (Bld) 0.0 % Normal 0-[address] [facility] Comment on above: Performed By: #### L 100.0100 ####[facility] [address] [place], [address] Erythrocyte distribution width (RBC) [Ratio] 12.3 % Normal 11.6-14.[address] [facility] Comment on above: Performed By: #### L 100.0100 ####[facility] [address] [place], [address] Hematocrit (Bld) [Volume fraction] 37.9 % Low 40-[address] [facility] Comment on above: Performed By: #### L 100.0100 ####[facility] [address] [place], [address] Hemoglobin (Bld) [Mass/Vol] 13.0 g/dL Normal 13.0-16.[address] [facility] Comment on above: Performed By: #### L 100.0100 ####[facility] [address] [place], [address] IG% 0.900 Normal 0.0-0.[address] [facility] Comment on above: Result Comment: IG% - Immature Granulocytes (promyelocytes, myelocytes andmetamyelocytes) > 1% indicates that a LEFT SHIFT is Present. Performed By: #### L 100.0100 ####[facility] [address] [place], [address] Lymphocytes/100 WBC (Bld) 14.3 % Low 19-[address] [facility] Comment on above: Performed By: #### L 100.0100 ####[facility] [address] [place], [address] MCH (RBC) [Entitic mass] 30.0 pg Normal 27.0-32.[address] [facility] Comment on above: Performed By: #### L 100.0100 ####[facility] [address] [place], [address] MCHC (RBC) [Mass/Vol] 34.3 g/dL Normal 32-36 [facility] Comment on above: Performed By: #### L 100.0100 ####[facility] [address] [place], [address] MCV (RBC) [Entitic vol] 87.5 fL Normal 80-94 [facility] Comment on above: Performed By: #### L 100.0100 ####[facility] [address] [place], [address] Monocytes/100 WBC (Bld) 5.8 % Normal 0-10 [facility] Comment on above: Performed By: #### L 100.0100 ####[facility] [address] [place], [address] Neutrophils/100 WBC (Bld) 78.8 % High 47-[address] [facility] Comment on above: Performed By: #### L 100.0100 ####[facility] [address] [place], [address] Nucleated RBC (Bld) [#/Vol] 0 10*3/uL Normal 0-[address] [facility] Comment on above: Performed By: #### L 100.0100 ####[facility] [address] [place], [address] Platelet mean volume (Bld) [Entitic vol] 8.6 fL Normal 6.2-12.[address] [facility] Comment on above: Performed By: #### L 100.0100 ####[facility] [address] [place], [address] Platelets (Bld) [#/Vol] 178 10*3/uL Normal 150-[address] [facility] Comment on above: Performed By: #### L 100.0100 ####[facility] [address] [place], [address] RBC (Bld) [#/Vol] 4.33 10*6/uL Low 4.6-6.2 [facility] Comment on above: Performed By: #### L 100.0100 ####[facility] [address] [place], [address] RDW SD 39.6 fl Normal 35.1-43.[address] [facility] Comment on above: Performed By: #### L 100.0100 ####[facility] [address] [place], [address] WBC (Bld) [#/Vol] 11.1 10*3/uL High 4.4-11.0 [facility] Comment on above: Performed By: #### L 100.0100 ####[facility] [address] [place], [address] CBC-Complete Blood Cnt No Di ffon 04-27-2024 HCT Normal 40-[address] [facility] Comment on above: Result Comment: Canbryce elladdie via OM: Ordered Performed By: #### L 100.0500, L500.2500 ####[facility] [address] [place], [address] HGB Normal 13.0-16.[address] [facility] Comment on above: Result Comment: Canc elled via OM: MD Ordered Performed By: #### L 100.0500, L500.2500 ####[facility] [address] [place], [address] MCH Normal 27.0-32.[address] [facility] Comment on above: Result Comment: Canc elled via OM: MD Ordered Performed By: #### L 100.0500, L500.2500 ####[facility] [address] [place], [address] MCHC Normal 32-[address] [facility] Comment on above: Result Comment: Canc elled via OM: MD Ordered Performed By: #### L 100.0500, L500.2500 ####[facility] [address] [place], [address] MCV Normal 80-[address] [facility] Comment on above: Result Comment: Canc elled via OM: MD Ordered Performed By: #### L 100.0500, L500.2500 ####[facility] [address] [place], [address] PLT Normal 150-[address] [facility] Comment on above: Result Comment: Canc elled via OM: MD Ordered Performed By: #### L 100.0500, L500.2500 ####[facility] [address] [place], [address] RBC Normal 4.6-6.[address] [facility] Comment on above: Result Comment: Canc elled via OM: MD Ordered Performed By: #### L 100.0500, L500.2500 ####[facility] [address] [place], [address] RDW CV Normal 11.6-14.[address] [facility] Comment on above: Result Comment: Canc elled via OM: MD Ordered Performed By: #### L 100.0500, L500.2500 ####[facility] [address] [place], [address] RDW SD Normal 35.1-43.[address] [facility] Comment on above: Result Comment: Canc elled via OM: MD Ordered Performed By: #### L 100.0500, L500.2500 ####[facility] [address] [place], [address] WBC Normal 4.4-11.[address] [facility] Comment on above: Result Comment: Canc elled via OM: MD Ordered Performed By: #### L 100.0500, L500.2500 ####[facility] [address] [place], [address] Carbon dioxide, total [Moles /volume] in Central venous bloodOrdered By: Harish Baxter on 04-27-2024 CO2 [Moles/Vol] 20.1 mmol/L Low 21.0-32.[address] [facility] Cerv Spine 2 or 3 Viewson Cerv Spine 2 or 3 Views Normal [facility] Chloride assayOrdered By: Carmela Baxter on 04-27-2024 Chloride [Moles/Vol] 103 mmol/L 98-108 [facility] Discharge Instructionon 04-09 Discharge Instruction Normal [facility] Eosinophil percentageOrdered By: Harish Baxter on 04-27-2024 Eosinophils/100 WBC (Bld) 0.0 % 0-[address] [facility] Erythrocyte distribution wid th ratioOrdered By: Harish Baxter on 04-27-2024 Erythrocyte distribution width (RBC) [Ratio] 12.3 % 11.6-14.[address] [facility] Erythrocyte distribution wid th standard deviationOrdered By: Harish Baxter on 04-27-2024 Erythrocyte distribution width (RBC) [Entitic vol] 39.6 fL 35.1-43.[address] [facility] Erythrocyte distribution width (RBC) [Ratio] 39.6 fl 35.1-43.[address] [facility] Estimation of creatinine yahir aranceOrdered By: Harish Baxter on 04-27-2024 Estimated Creatinine Clearance Calc 60.55 ml/min 50-[address] [facility] GFR/1.73 sq M.predicted darrick g non-blacks MDRD (S/P/Bld) [Vol rate/Area]Ordered By: Harish Baxter on 04-27-2024 Estimated GFR (MDRD) Non-Af Amer [address] [facility] Comment on above: mL/min/1.73m2 CKD-EP I Creatinine Equation (2020) Glomerular filtration rate ( GFR) estimation/1.73 sq m using serum, plasma, or whole bOrdered By: Harish Baxter on 04-27-2024 GFR/1.73 sq M.predicted among non-blacks MDRD (S/P/Bld) [Vol rate/Area] 84 mL/min/{1.73_m2} >[address] [facility] Hematocrit Auto (Bld) [Volum e fraction]Ordered By: Harish Baxter on 04-27-2024 Hematocrit (Bld) [Volume fraction] 37.9 % Low 40-[address] [facility] Hemoglobin measurementOrdere d By: Harish Baxter on 04-27-2024 Hemoglobin (Bld) [Mass/Vol] 13.0 g/dL 13.0-16.[address] [facility] Immature granulocytes/100 WB C Auto (Bld)Ordered By: Harish Baxter on 04-27-2024 Immature granulocytes/100 WBC (Bld) 0.900 % 0.0-0.[address] [facility] Comment on above: IG% - Immature Granu locytes (promyelocytes, myelocytes and metamyelocytes) > 1% indicates that a LEFT SHIFT is Present. Lymphocytes Auto (Unsp spec) [#/Vol]Ordered By: Harish Baxter on 04-27-2024 Lymphocytes (Bld) [#/Vol] 1.59 10*3/uL 0.83-4.[address] [facility] Lymphocytes/100 WBC Auto (Un sp spec)Ordered By: Harish Baxter on 04-27-2024 Lymphocytes/100 WBC (Bld) 14.3 % Low 19-[address] [facility] MCV (mean corpuscular volume ) determinationOrdered By: Harish Baxter on 03-20-2025 MCV (RBC) [Entitic vol] 87.5 fL 80-94 [facility] Mean corpuscular hemoglobin (MCH) determinationOrdered By: Harish Baxter on 04-27-2024 MCH (RBC) [Entitic mass] 30.0 pg 27.0-32.[address] [facility] Mean corpuscular hemoglobin concentration (MCHC) determinationOrdered By: Harish Baxter on 04-27-2024 MCHC (RBC) [Mass/Vol] 34.3 g/dL 32-36 [facility] Mean platelet volume determi nationOrdered By: Harish Baxter on 04-27-2024 Platelet mean volume (Bld) [Entitic vol] 8.6 fL 6.2-12.[address] [facility] Monocyte percentageOrdered B y: Harish Baxter on 04-27-2024 Monocytes/100 WBC (Bld) 5.8 % 0-10 [facility] Neutrophil percentageOrdered By: Harish Baxter on 04-27-2024 Neutrophils/100 WBC (Bld) 78.8 % High 47-[address] [facility] Nucleated red blood cell per centageOrdered By: Harish Baxter on 04-27-2024 Nucleated RBC/100 WBC (Bld) [Ratio] 0 % 0-[address] [facility] Platelet countOrdered By: Carmela Baxter on 04-27-2024 Platelets (Bld) [#/Vol] 178 10*3/uL 150-[address] [facility] Potassium (Unsp spec) [Mass/ Vol]Ordered By: Harish Baxter on 04-27-2024 Potassium [Moles/Vol] 4.6 mmol/L 3.3-5.1 [facility] Potassium measurement (mass/ volume)Ordered By: Harish Baxter on 04-27-2024 Potassium (Unsp spec) [Mass/Vol] 4.6 mmol/L 3.3-5.[address] [facility] RBC Auto (Bld) [#/Vol]Ordere d By: Harish Baxter on 04-27-2024 RBC (Bld) [#/Vol] 4.33 10*6/uL Low 4.6-6.2 [facility] Serum creatinine measurement (mass/volume)Ordered By: Harish Baxter on 04-27-2024 Creatinine [Mass/Vol] 0.91 mg/dL 0.70-1.20 [facility] Serum glucose measurement (m ass/volume)Ordered By: Harish Baxter on 04-27-2024 Glucose [Mass/Vol] 123 mg/dL High 70-99 [facility] Serum or plasma calcium ratna urement (mass/volume)Ordered By: Harish Baxter on 04-27-2024 Calcium [Mass/Vol] 8.2 mg/dL 7.6-11.0 [facility] Serum or plasma urea nitroge n measurement (mass/volume)Ordered By: Harish Baxter on 04-27-2024 Urea nitrogen [Mass/Vol] 19 mg/dL 4-[address] [facility] Sodium levelOrdered By: Jade Baxter on 04-27-2024 Sodium [Moles/Vol] 136 mmol/L 133-145 [facility] Urine cultureOrdered By: Aura Wright on 04-27-2024 Bacteria identified Cx Nom (U) Culture exhibits no growth. [facility] White blood cell (WBC) count Ordered By: Harish Baxter on 04-27-2024 WBC (Bld) [#/Vol] 11.1 10*3/uL High 4.4-11.0 [facility] Basic Metabolic Profile (BMP )on 04-26-2024 BUN/CRE 23.4 RATIO High 10-[address] [facility] Comment on above: Performed By: #### L 100.0100, L500.2500 ####[facility] [address], [address] Calcium [Mass/Vol] 8.2 mg/dL Normal 7.6-11.0 [facility] Comment on above: Performed By: #### L 100.0100, L500.2500 ####[facility] [address] [place], [address] Chloride [Moles/Vol] 107 mmol/L Normal 98-108 [facility] Comment on above: Performed By: #### L 100.0100, L500.2500 ####[facility] [address] [place], [address] CO2 [Moles/Vol] 22.8 mmol/L Normal 21.0-32.[address] [facility] Comment on above: Performed By: #### L 100.0100, L500.2500 ####[facility] [address] [place], [address] Creatinine [Mass/Vol] 0.83 mg/dL Normal 0.70-1.20 [facility] Comment on above: Performed By: #### L 100.0100, L500.2500 ####[facility] [address] [place], [address] ECRCL 66.39 ml/min Normal 50-[address] [facility] Comment on above: Performed By: #### L 100.0100, L500.2500 ####[facility] [address] [place], [address] GAP 6 Normal 5-[address] [facility] Comment on above: Performed By: #### L 100.0100, L500.2500 ####[facility] [address] [place], [address] GFR/1.73 sq M.predicted among non-blacks MDRD (S/P/Bld) [Vol rate/Area] 87 mL/min/{1.73_m2} Normal >[address] [facility] Comment on above: Result Comment: mL/m in/1.73m2 CKD-EPI Creatinine Equation (2020) Performed By: #### L 100.0100, L500.2500 ####[facility] [address] [place], [address] Glucose [Mass/Vol] 91 mg/dL Normal 70-99 [facility] Comment on above: Performed By: #### L 100.0100, L500.2500 ####[facility] [address] [place], [address] Potassium [Moles/Vol] 4.5 mmol/L Normal 3.3-5.1 [facility] Comment on above: Performed By: #### L 100.0100, L500.2500 ####[facility] [address] [place], [address] Sodium [Moles/Vol] 136 mmol/L Normal 133-145 [facility] Comment on above: Performed By: #### L 100.0100, L500.2500 ####[facility] [address] [place], [address] Urea nitrogen [Mass/Vol] 20 mg/dL High 4-[address] [facility] Comment on above: Performed By: #### L 100.0100, L500.2500 ####[facility] [address] [place], [address] CBC W/Diff, Automatedon 04-08 Absolute Lymph 2.30 X10 3/uL Normal 0.83-4.[address] [facility] Comment on above: Performed By: #### L 100.0100, L500.2500 ####[facility] [address] [place], [address] Absolute Neut 5.4 X10 3/uL Normal 2.0-7.[address] [facility] Comment on above: Performed By: #### L 100.0100, L500.2500 ####[facility] [address] [place], [address] Basophils/100 WBC (Bld) 0.1 % Normal 0-1 [facility] Comment on above: Performed By: #### L 100.0100, L500.2500 ####[facility] [address] [place], [address] Eosinophils/100 WBC (Bld) 2.2 % Normal 0-[address] [facility] Comment on above: Performed By: #### L 100.0100, L500.2500 ####[facility] [address] [place], [address] Erythrocyte distribution width (RBC) [Ratio] 12.5 % Normal 11.6-14.[address] [facility] Comment on above: Performed By: #### L 100.0100, L500.2500 ####[facility] [address] [place], [address] Hematocrit (Bld) [Volume fraction] 38.8 % Low 40-[address] [facility] Comment on above: Performed By: #### L 100.0100, L500.2500 ####[facility] [address] [place], [address] Hemoglobin (Bld) [Mass/Vol] 13.3 g/dL Normal 13.0-16.[address] [facility] Comment on above: Performed By: #### L 100.0100, L500.2500 ####[facility] [address] [place], [address] IG% 0.700 Normal 0.0-0.[address] [facility] Comment on above: Result Comment: IG% - Immature Granulocytes (promyelocytes, myelocytes andmetamyelocytes) > 1% indicates that a LEFT SHIFT is Present. Performed By: #### L 100.0100, L500.2500 ####[facility] [address] [place], [address] Lymphocytes/100 WBC (Bld) 26.4 % Normal 19-[address] [facility] Comment on above: Performed By: #### L 100.0100, L500.2500 ####[facility] [address] [place], [address] MCH (RBC) [Entitic mass] 29.8 pg Normal 27.0-32.[address] [facility] Comment on above: Performed By: #### L 100.0100, L500.2500 ####[facility] [address] [place], [address] MCHC (RBC) [Mass/Vol] 34.3 g/dL Normal 32-36 [facility] Comment on above: Performed By: #### L 100.0100, L500.2500 ####[facility] [address] [place], [address] MCV (RBC) [Entitic vol] 87.0 fL Normal 80-94 [facility] Comment on above: Performed By: #### L 100.0100, L500.2500 ####[facility] [address] [place], [address] Monocytes/100 WBC (Bld) 8.2 % Normal 0-10 [facility] Comment on above: Performed By: #### L 100.0100, L500.2500 ####[facility] [address] [place], [address] Neutrophils/100 WBC (Bld) 62.4 % Normal 47-[address] [facility] Comment on above: Performed By: #### L 100.0100, L500.2500 ####[facility] [address] [place], [address] Nucleated RBC (Bld) [#/Vol] 0 10*3/uL Normal 0-[address] [facility] Comment on above: Performed By: #### L 100.0100, L500.2500 ####[facility] [address] [place], [address] Platelet mean volume (Bld) [Entitic vol] 8.5 fL Normal 6.2-12.[address] [facility] Comment on above: Performed By: #### L 100.0100, L500.2500 ####[facility] [address] [place], [address] Platelets (Bld) [#/Vol] 168 10*3/uL Normal 150-[address] [facility] Comment on above: Performed By: #### L 100.0100, L500.2500 ####[facility] [address] [place], [address] RBC (Bld) [#/Vol] 4.46 10*6/uL Low 4.6-6.2 [facility] Comment on above: Performed By: #### L 100.0100, L500.2500 ####[facility] [address] [place], [address] RDW SD 39.8 fl Normal 35.1-43.[address] [facility] Comment on above: Performed By: #### L 100.0100, L500.2500 ####[facility] [address] [place], [address] WBC (Bld) [#/Vol] 8.7 10*3/uL Normal 4.4-11.0 [facility] Comment on above: Performed By: #### L 100.0100, L500.2500 ####[facility] [address] [place], [address] Cerv Spine 2 or 3 Viewson Cerv Spine 2 or 3 Views Normal [facility] HH, Hemoglobin AND Hematocri ton 04-26-2024 Hematocrit (Bld) [Volume fraction] 37.7 % Low 40-[address] [facility] Comment on above: Performed By: #### L 100.0600 ####[facility] [address] [place], [address] Hemoglobin (Bld) [Mass/Vol] 12.8 g/dL Low 13.0-16.[address] [facility] Comment on above: Performed By: #### L 100.0600 ####[facility] [address] [place], [address] MR/POSTOP.ANEon 04-26-2024 MR/POSTOP.ANE Normal [facility] MR/POSTOP.ANE Normal [facility] MR/PVTYRVUM8gg 04-26-2024 MR/POSTOPAN2 Normal [facility] O.R. Fluoro for C-Cr 03- O.R. Fluoro for C-Arm Normal [facility] Operative Reporton Operative Report Normal [facility] Basic Metabolic Profile (BMP )on 04-25-2024 BUN/CRE 26.7 RATIO High 10-[address] [facility] Comment on above: Performed By: #### L 500.2500, L100.0100 ####[facility] [address] [place], [address] Calcium [Mass/Vol] 8.5 mg/dL Normal 7.6-11.0 [facility] Comment on above: Performed By: #### L 500.2500, L100.0100 ####[facility] [address] [place], [address] Chloride [Moles/Vol] 103 mmol/L Normal 98-108 [facility] Comment on above: Performed By: #### L 500.2500, L100.0100 ####[facility] [address] [place], [address] CO2 [Moles/Vol] 24.3 mmol/L Normal 21.0-32.[address] [facility] Comment on above: Performed By: #### L 500.2500, L100.0100 ####[facility] [address] [place], [address] Creatinine [Mass/Vol] 0.90 mg/dL Normal 0.70-1.20 [facility] Comment on above: Performed By: #### L 500.2500, L100.0100 ####[facility] [address] [place], [address] ECRCL 61.22 ml/min Normal 50-[address] [facility] Comment on above: Performed By: #### L 500.2500, L100.0100 ####[facility] [address] [place], [address] GAP 10 Normal 5-[address] [facility] Comment on above: Performed By: #### L 500.2500, L100.0100 ####[facility] [address] [place], [address] GFR/1.73 sq M.predicted among non-blacks MDRD (S/P/Bld) [Vol rate/Area] 85 mL/min/{1.73_m2} Normal >[address] [facility] Comment on above: Result Comment: mL/m in/1.73m2 CKD-EPI Creatinine Equation (2020) Performed By: #### L 500.2500, L100.0100 ####[facility] [address] [place], [address] Glucose [Mass/Vol] 90 mg/dL Normal 70-99 [facility] Comment on above: Performed By: #### L 500.2500, L100.0100 ####[facility] [address] [place], [address] Potassium [Moles/Vol] 4.2 mmol/L Normal 3.3-5.1 [facility] Comment on above: Performed By: #### L 500.2500, L100.0100 ####[facility] [address] [place], [address] Sodium [Moles/Vol] 138 mmol/L Normal 133-145 [facility] Comment on above: Performed By: #### L 500.2500, L100.0100 ####[facility] [address] [place], [address] Urea nitrogen [Mass/Vol] 24 mg/dL High 4-[address] [facility] Comment on above: Performed By: #### L 500.2500, L100.0100 ####[facility] [address] [place], [address] CBC W/Diff, Automatedon 04-08 Absolute Lymph 2.98 X10 3/uL Normal 0.83-4.[address] [facility] Comment on above: Performed By: #### L 500.2500, L100.0100 ####[facility] [address] [place], [address] Absolute Neut 6.0 X10 3/uL Normal 2.0-7.[address] [facility] Comment on above: Performed By: #### L 500.2500, L100.0100 ####[facility] [address] [place], [address] Basophils/100 WBC (Bld) 0.1 % Normal 0-1 [facility] Comment on above: Performed By: #### L 500.2500, L100.0100 ####[facility] [address] [place], [address] Eosinophils/100 WBC (Bld) 1.3 % Normal 0-[address] [facility] Comment on above: Performed By: #### L 500.2500, L100.0100 ####[facility] [address] [place], [address] Erythrocyte distribution width (RBC) [Ratio] 12.5 % Normal 11.6-14.[address] [facility] Comment on above: Performed By: #### L 500.2500, L100.0100 ####[facility] [address] [place], [address] Hematocrit (Bld) [Volume fraction] 38.8 % Low 40-[address] [facility] Comment on above: Performed By: #### L 500.2500, L100.0100 ####[facility] [address] [place], [address] Hemoglobin (Bld) [Mass/Vol] 13.5 g/dL Normal 13.0-16.[address] [facility] Comment on above: Performed By: #### L 500.2500, L100.0100 ####[facility] [address] [place], [address] IG% 0.700 Normal 0.0-0.[address] [facility] Comment on above: Result Comment: IG% - Immature Granulocytes (promyelocytes, myelocytes andmetamyelocytes) > 1% indicates that a LEFT SHIFT is Present. Performed By: #### L 500.2500, L100.0100 ####[facility] [address] [place], [address] Lymphocytes/100 WBC (Bld) 30.0 % Normal 19-[address] [facility] Comment on above: Performed By: #### L 500.2500, L100.0100 ####[facility] [address] [place], [address] MCH (RBC) [Entitic mass] 29.9 pg Normal 27.0-32.[address] [facility] Comment on above: Performed By: #### L 500.2500, L100.0100 ####[facility] [address] [place], [address] MCHC (RBC) [Mass/Vol] 34.8 g/dL Normal 32-36 [facility] Comment on above: Performed By: #### L 500.2500, L100.0100 ####[facility] [address] [place], [address] MCV (RBC) [Entitic vol] 86.0 fL Normal 80-94 [facility] Comment on above: Performed By: #### L 500.2500, L100.0100 ####[facility] [address] [place], [address] Monocytes/100 WBC (Bld) 7.5 % Normal 0-10 [facility] Comment on above: Performed By: #### L 500.2500, L100.0100 ####[facility] [address] [place], [address] Neutrophils/100 WBC (Bld) 60.4 % Normal 47-[address] [facility] Comment on above: Performed By: #### L 500.2500, L100.0100 ####[facility] [address] [place], [address] Nucleated RBC (Bld) [#/Vol] 0 10*3/uL Normal 0-[address] [facility] Comment on above: Performed By: #### L 500.2500, L100.0100 ####[facility] [address] [place], [address] Platelet mean volume (Bld) [Entitic vol] 8.5 fL Normal 6.2-12.[address] [facility] Comment on above: Performed By: #### L 500.2500, L100.0100 ####[facility] [address] [place], [address] Platelets (Bld) [#/Vol] 186 10*3/uL Normal 150-[address] [facility] Comment on above: Performed By: #### L 500.2500, L100.0100 ####[facility] [address] [place], [address] RBC (Bld) [#/Vol] 4.51 10*6/uL Low 4.6-6.2 [facility] Comment on above: Performed By: #### L 500.2500, L100.0100 ####[facility] [address] [place], [address] RDW SD 39.1 fl Normal 35.1-43.[address] [facility] Comment on above: Performed By: #### L 500.2500, L100.0100 ####[facility] [address] [place], [address] WBC (Bld) [#/Vol] 9.9 10*3/uL Normal 4.4-11.0 [facility] Comment on above: Performed By: #### L 500.2500, L100.0100 ####[facility] [address] [place], [address] 12 Lead EKGon 04-24-2024 12 Lead EKG Normal [facility] Basic Metabolic Profile (BMP )on 04-24-2024 BUN/CRE 25.3 RATIO High 10-[address] [facility] Comment on above: Order Comment: pre-o p Performed By: #### L 500.2500, L100.0100 ####[facility] [address] [place], [address] Calcium [Mass/Vol] 8.7 mg/dL Normal 7.6-11.0 [facility] Comment on above: Order Comment: pre-o p Performed By: #### L 500.2500, L100.0100 ####[facility] [address] [place], [address] Chloride [Moles/Vol] 103 mmol/L Normal 98-108 [facility] Comment on above: Order Comment: pre-o p Performed By: #### L 500.2500, L100.0100 ####[facility] [address] [place], [address] CO2 [Moles/Vol] 26.7 mmol/L Normal 21.0-32.[address] [facility] Comment on above: Order Comment: pre-o p Performed By: #### L 500.2500, L100.0100 ####[facility] [address] [place], [address] Creatinine [Mass/Vol] 0.97 mg/dL Normal 0.70-1.20 [facility] Comment on above: Order Comment: pre-o p Performed By: #### L 500.2500, L100.0100 ####[facility] [address] [place], [address] ECRCL 56.80 ml/min Normal 50-[address] [facility] Comment on above: Order Comment: pre-o p Performed By: #### L 500.2500, L100.0100 ####[facility] [address] [place], [address] GAP 8 Normal 5-[address] [facility] Comment on above: Order Comment: pre-o p Performed By: #### L 500.2500, L100.0100 ####[facility] [address] [place], [address] GFR/1.73 sq M.predicted among non-blacks MDRD (S/P/Bld) [Vol rate/Area] 78 mL/min/{1.73_m2} Normal >[address] [facility] Comment on above: Order Comment: pre-o p Result Comment: mL/m in/1.73m2 CKD-EPI Creatinine Equation (2020) Performed By: #### L 500.2500, L100.0100 ####[facility] [address] [place], [address] Glucose [Mass/Vol] 94 mg/dL Normal 70-99 [facility] Comment on above: Order Comment: pre-o p Performed By: #### L 500.2500, L100.0100 ####[facility] [address] [place], [address] Potassium [Moles/Vol] 4.2 mmol/L Normal 3.3-5.1 [facility] Comment on above: Order Comment: pre-o p Performed By: #### L 500.2500, L100.0100 ####[facility] [address] [place], [address] Sodium [Moles/Vol] 138 mmol/L Normal 133-145 [facility] Comment on above: Order Comment: pre-o p Performed By: #### L 500.2500, L100.0100 ####[facility] [address] [place], [address] Urea nitrogen [Mass/Vol] 25 mg/dL High 4-[address] [facility] Comment on above: Order Comment: pre-o p Performed By: #### L 500.2500, L100.0100 ####[facility] [address] [place], [address] CBC W/Diff, Automatedon 04-08 Absolute Lymph 3.18 X10 3/uL Normal 0.83-4.[address] [facility] Comment on above: Order Comment: Comme nts: pre-op Performed By: #### L 500.2500, L100.0100 ####[facility] [address] [place], [address] Absolute Neut 6.3 X10 3/uL Normal 2.0-7.[address] [facility] Comment on above: Order Comment: Comme nts: pre-op Performed By: #### L 500.2500, L100.0100 ####[facility] [address] [place], [address] Basophils/100 WBC (Bld) 0.1 % Normal 0-1 [facility] Comment on above: Order Comment: Comme nts: pre-op Performed By: #### L 500.2500, L100.0100 ####[facility] [address] [place], [address] Eosinophils/100 WBC (Bld) 0.7 % Normal 0-[address] [facility] Comment on above: Order Comment: Comme nts: pre-op Performed By: #### L 500.2500, L100.0100 ####[facility] [address] [place], [address] Erythrocyte distribution width (RBC) [Ratio] 12.3 % Normal 11.6-14.[address] [facility] Comment on above: Order Comment: Comme nts: pre-op Performed By: #### L 500.2500, L100.0100 ####[facility] [address] [place], [address] Hematocrit (Bld) [Volume fraction] 39.7 % Low 40-[address] [facility] Comment on above: Order Comment: Comme nts: pre-op Performed By: #### L 500.2500, L100.0100 ####[facility] [address] [place], [address] Hemoglobin (Bld) [Mass/Vol] 13.6 g/dL Normal 13.0-16.[address] [facility] Comment on above: Order Comment: Comme nts: pre-op Performed By: #### L 500.2500, L100.0100 ####[facility] [address] [place], [address] IG% 0.500 Normal 0.0-0.[address] [facility] Comment on above: Order Comment: Comme nts: pre-op Result Comment: IG% - Immature Granulocytes (promyelocytes, myelocytes andmetamyelocytes) > 1% indicates that a LEFT SHIFT is Present. Performed By: #### L 500.2500, L100.0100 ####[facility] [address] [place], [address] Lymphocytes/100 WBC (Bld) 30.5 % Normal 19-[address] [facility] Comment on above: Order Comment: Comme nts: pre-op Performed By: #### L 500.2500, L100.0100 ####[facility] [address] [place], [address] MCH (RBC) [Entitic mass] 29.8 pg Normal 27.0-32.[address] [facility] Comment on above: Order Comment: Comme nts: pre-op Performed By: #### L 500.2500, L100.0100 ####[facility] [address] [place], [address] MCHC (RBC) [Mass/Vol] 34.3 g/dL Normal 32-36 [facility] Comment on above: Order Comment: Comme nts: pre-op Performed By: #### L 500.2500, L100.0100 ####[facility] [address] [place], [address] MCV (RBC) [Entitic vol] 87.1 fL Normal 80-94 [facility] Comment on above: Order Comment: Comme nts: pre-op Performed By: #### L 500.2500, L100.0100 ####[facility] [address] [place], [address] Monocytes/100 WBC (Bld) 7.9 % Normal 0-10 [facility] Comment on above: Order Comment: Comme nts: pre-op Performed By: #### L 500.2500, L100.0100 ####[facility] [address] [place], [address] Neutrophils/100 WBC (Bld) 60.3 % Normal 47-[address] [facility] Comment on above: Order Comment: Comme nts: pre-op Performed By: #### L 500.2500, L100.0100 ####[facility] [address] [place], [address] Nucleated RBC (Bld) [#/Vol] 0 10*3/uL Normal 0-[address] [facility] Comment on above: Order Comment: Comme nts: pre-op Performed By: #### L 500.2500, L100.0100 ####[facility] [address] [place], [address] Platelet mean volume (Bld) [Entitic vol] 8.5 fL Normal 6.2-12.[address] [facility] Comment on above: Order Comment: Comme nts: pre-op Performed By: #### L 500.2500, L100.0100 ####[facility] [address] [place], [address] Platelets (Bld) [#/Vol] 199 10*3/uL Normal 150-[address] [facility] Comment on above: Order Comment: Comme nts: pre-op Performed By: #### L 500.2500, L100.0100 ####[facility] [address] [place], [address] RBC (Bld) [#/Vol] 4.56 10*6/uL Low 4.6-6.2 [facility] Comment on above: Order Comment: Comme nts: pre-op Performed By: #### L 500.2500, L100.0100 ####[facility] [address] [place], [address] RDW SD 39.4 fl Normal 35.1-43.[address] [facility] Comment on above: Order Comment: Comme nts: pre-op Performed By: #### L 500.2500, L100.0100 ####[facility] [address] [place], [address] WBC (Bld) [#/Vol] 10.4 10*3/uL Normal 4.4-11.0 [facility] Comment on above: Order Comment: Comme nts: pre-op Performed By: #### L 500.2500, L100.0100 ####[facility] [address] [place], [address] Electrocardiogram reportOrde red By: Danette Sargent on 04-24-2024 EKG study [facility] [address] [address] 12 Lead EKG 04/19/24 1131 MR#: [id number] Acct: [id number] Name: YAS ROSA Rep #:[id number] : 1940 83 From: Danette cartagena MD [...] Normal sinus rhythm Normal ECG Confirmed by KACEY SARGENT MD ([id number]), digital editor LEANDER BRAY ([id number]) on04/24/2024 11:11:40 AM Referred By: KAYLAH Confirmed By: KACEY SARGENT MD 04/24/24 1111 Date _ Danette Sargent MD CC: Dr. Kwabena Menjivar MD; Dr. Laureano Gallagher DO; Dr. Harish Baxter MD ~ Signed [facility] Work Phone: Electrocardiogram reportOrde red By: David Granados on 04-24-2024 EKG study [facility] [address] [place] [address] 12 Lead EKG 04/24/24 0501 MR#: [id number] Acct: [id number] Name: YAS ROSA Rep #:[id number] : 1940 83 From: David Granados MD Attending Dr: Dr. Harish Baxter MD Status: ADM IN Ordering Dr: Krish Guevara MD Date: 04/24/24 Location: [facility] Sex: M C Admitted: 04/20/24 [...] COMPARISON REQUIRED DATA IS UNCONFIRMED Confirmed by DAVID GRANADOS MD ([id number]), digital editor LEANDER BRAY ([id number]) on 59:54:30 AM Referred By: Confirmed By: DAVID GRANADOS MD 04/24/24 0954 Date _ David Granados MD CC: Dr. Krish Guevara MD; Dr. Kwabena Menjivar MD; Dr. Harish Baxter MD ~ Signed [facility] Work Phone: Consultation - Orthopedicson 04-21-2024 Consultation - Orthopedics Normal [facility] CBC W/Diff, Automatedon 04-08 Absolute Lymph 2.09 X10 3/uL Normal 0.83-4.[address] [facility] Comment on above: Performed By: #### L 100.0100 ####[facility] [address] [place], [address] Absolute Neut 8.7 X10 3/uL High 2.0-7.[address] [facility] Comment on above: Performed By: #### L 100.0100 ####[facility] [address] [place], [address] Basophils/100 WBC (Bld) 0.1 % Normal 0-1 [facility] Comment on above: Performed By: #### L 100.0100 ####[facility] [address] [place], [address] Eosinophils/100 WBC (Bld) 0.1 % Normal 0-[address] [facility] Comment on above: Performed By: #### L 100.0100 ####[facility] [address] [place], [address] Erythrocyte distribution width (RBC) [Ratio] 12.7 % Normal 11.6-14.[address] [facility] Comment on above: Performed By: #### L 100.0100 ####[facility] [address] [place], [address] Hematocrit (Bld) [Volume fraction] 38.5 % Low 40-[address] [facility] Comment on above: Performed By: #### L 100.0100 ####[facility] [address] [place], [address] Hemoglobin (Bld) [Mass/Vol] 13.2 g/dL Normal 13.0-16.[address] [facility] Comment on above: Performed By: #### L 100.0100 ####[facility] [address] [place], [address] IG% 0.300 Normal 0.0-0.[address] [facility] Comment on above: Result Comment: IG% - Immature Granulocytes (promyelocytes, myelocytes andmetamyelocytes) > 1% indicates that a LEFT SHIFT is Present. Performed By: #### L 100.0100 ####[facility] [address] [place], [address] Lymphocytes/100 WBC (Bld) 17.6 % Low 19-[address] [facility] Comment on above: Performed By: #### L 100.0100 ####[facility] [address] [place], [address] MCH (RBC) [Entitic mass] 29.5 pg Normal 27.0-32.[address] [facility] Comment on above: Performed By: #### L 100.0100 ####[facility] [address] [place], [address] MCHC (RBC) [Mass/Vol] 34.3 g/dL Normal 32-36 [facility] Comment on above: Performed By: #### L 100.0100 ####[facility] [address] [place], [address] MCV (RBC) [Entitic vol] 86.1 fL Normal 80-94 [facility] Comment on above: Performed By: #### L 100.0100 ####[facility] [address] [place], [address] Monocytes/100 WBC (Bld) 8.4 % Normal 0-10 [facility] [facility] Comment on above: Performed By: #### L 100.0100 ####[facility] [address] [place], [address] Neutrophils/100 WBC (Bld) 73.5 % High 47-[address] [facility] Comment on above: Performed By: #### L 100.0100 ####[facility] [address] [place], [address] Nucleated RBC (Bld) [#/Vol] 0 10*3/uL Normal 0-[address] [facility] Comment on above: Performed By: #### L 100.0100 ####[facility] [address] [place], [address] Platelet mean volume (Bld) [Entitic vol] 8.9 fL Normal 6.2-12.[address] [facility] Comment on above: Performed By: #### L 100.0100 ####[facility] [address] [place], [address] Platelets (Bld) [#/Vol] 216 10*3/uL Normal 150-[address] [facility] Comment on above: Performed By: #### L 100.0100 ####[facility] [address] [place], [address] RBC (Bld) [#/Vol] 4.47 10*6/uL Low 4.6-6.2 [facility] Comment on above: Performed By: #### L 100.0100 ####[facility] [address] [place], [address] RDW SD 39.5 fl Normal 35.1-43.[address] [facility] Comment on above: Performed By: #### L 100.0100 ####[facility] [address] [place], [address] WBC (Bld) [#/Vol] 11.9 10*3/uL High 4.4-11.0 [facility] Comment on above: Performed By: #### L 100.0100 ####[facility] [address] [place], [address] Echocardiogram study reportO rdered By: Danette Sargent on 04-20-2024 Study report [facility] Cardiovascular Services [address] [place] [address] Echo Complete 04/19/24 1500 MR#: [id number] Acct: [id number] Name: YAS ROSA Rep #:[id number] : 1940 83 From: Danette cerrato MD Attending Dr: Dr. Keanu Alfred, Status: ADM IN Ordering Dr: Keanu Alfred DO Date: Location: [facility] Sex: M C Admitted: 04/20/24 [...] Referring Physician: Kwabena Menjivar Performed By: Melida Child RDCS, RVT 04/20/24 1323 Date _ Danette Sargent MD CC: Dr. Kwabena Menjivar MD; Dr. Keanu Alfred, DO ~ Date Dictated: 04/19/24 1500 Date Transcribed: 04/20/24 132 Mining Speculator: Signed [facility] Work Phone: 12 Lead EKGon 04-19-2024 12 Lead EKG Normal [facility] Absolute neutrophil countOrd ered By: Laureano Gallagher on 04-19-2024 Neutrophils (Bld) [#/Vol] 12.1 10*3/uL High 2.0-7.[address] [facility] Activated partial thrombopla stin time (aPTT) in platelet poor plasma by coagulation aOrdered By: Laureano Gallagher on 04-19-2024 aPTT Coag (PPP) [Time] 23.4 s Low 24.1-36.2 [facility] Anion gap in Serum or Plasma Ordered By: Laureano Gallagher on 04-19-2024 Anion gap [Moles/Vol] 17 mmol/L High 5-15 [facility] BUN/creatinine ratioOrdered By: Laureano Gallagher on 04-19-2024 Urea nitrogen/Creatinine [Mass ratio] 21.7 mg/mg High - [facility] Basic Metabolic Profile (BMP )on 04-19-2024 BUN/CRE 21.7 RATIO High - [facility] Comment on above: Performed By: #### L 300.4310, L501.4021, L100.0100, L300.3900, L500.2500 ####[facility] [address] [place], [address] Calcium [Mass/Vol] 9.5 mg/dL Normal 7.6-11.0 [facility] Comment on above: Performed By: #### L 300.4310, L501.4021, L100.0100, L300.3900, L500.2500 ####[facility] [address] [place], [address] Chloride [Moles/Vol] 98 mmol/L Normal 98-108 [facility] Comment on above: Performed By: #### L 300.4310, L501.4021, L100.0100, L300.3900, L500.2500 ####[facility] [address] [place], [address] CO2 [Moles/Vol] 22.0 mmol/L Normal 21.0-32.[address] [facility] Comment on above: Performed By: #### L 300.4310, L501.4021, L100.0100, L300.3900, L500.2500 ####[facility] [address] [place], [address] Creatinine [Mass/Vol] 0.92 mg/dL Normal 0.70-1.20 [facility] Comment on above: Performed By: #### L 300.4310, L501.4021, L100.0100, L300.3900, L500.2500 ####[facility] [address] [place], [address] ECRCL 59.89 ml/min Normal 50-[address] [facility] Comment on above: Performed By: #### L 300.4310, L501.4021, L100.0100, L300.3900, L500.2500 ####[facility] [address] [place], [address] GAP 17 High 5-[address] [facility] Comment on above: Performed By: #### L 300.4310, L501.4021, L100.0100, L300.3900, L500.2500 ####[facility] [address] [place], [address] GFR/1.73 sq M.predicted among non-blacks MDRD (S/P/Bld) [Vol rate/Area] 83 mL/min/{1.73_m2} Normal >[address] [facility] Comment on above: Result Comment: mL/m in/1.73m2 CKD-EPI Creatinine Equation (2020) Performed By: #### L 300.4310, L501.4021, L100.0100, L300.3900, L500.2500 ####[facility] [address] [place], [address] Glucose [Mass/Vol] 152 mg/dL High 70-99 [facility] Comment on above: Performed By: #### L 300.4310, L501.4021, L100.0100, L300.3900, L500.2500 ####[facility] [address] [place], [address] Potassium [Moles/Vol] 3.6 mmol/L Normal 3.3-5.1 [facility] Comment on above: Performed By: #### L 300.4310, L501.4021, L100.0100, L300.3900, L500.2500 ####[facility] [address] [place], [address] Sodium [Moles/Vol] 137 mmol/L Normal 133-145 [facility] Comment on above: Performed By: #### L 300.4310, L501.4021, L100.0100, L300.3900, L500.2500 ####[facility] [address] [place], [address] Urea nitrogen [Mass/Vol] 20 mg/dL High 4-[address] [facility] Comment on above: Performed By: #### L 300.4310, L501.4021, L100.0100, L300.3900, L500.2500 ####[facility] [address] [place], [address] Basophil percentageOrdered B y: Laureano Gallagher on 04-19-2024 Basophils/100 WBC (Bld) 0.3 % 0-1 [facility] Bedside Glucoseon 04-19-2024 FINGERSTICK GLU 143 mg/dL High 74-[address] [facility] Comment on above: Result Comment: ELIGIO BUSCH OF PATIENT CARE PER NURSING PROTOCOL Performed By: #### L 501.080 ####[facility] [address] [place], [address] Brain without Contraston Brain without Contrast Normal [facility] CBC W/Diff, Automatedon 04-08 Absolute Lymph 1.41 X10 3/uL Normal 0.83-4.[address] [facility] Comment on above: Performed By: #### L 300.4310, L501.4021, L100.0100, L300.3900, L500.2500 ####[facility] [address] [place], [address] Absolute Neut 12.1 X10 3/uL High 2.0-7.[address] [facility] Comment on above: Performed By: #### L 300.4310, L501.4021, L100.0100, L300.3900, L500.2500 ####[facility] [address] [place], [address] Basophils/100 WBC (Bld) 0.3 % Normal 0-1 [facility] Comment on above: Performed By: #### L 300.4310, L501.4021, L100.0100, L300.3900, L500.2500 ####[facility] [address] [place], [address] Eosinophils/100 WBC (Bld) 0.0 % Normal 0-[address] [facility] Comment on above: Performed By: #### L 300.4310, L501.4021, L100.0100, L300.3900, L500.2500 ####[facility] [address] [place], [address] Erythrocyte distribution width (RBC) [Ratio] 12.3 % Normal 11.6-14.[address] [facility] Comment on above: Performed By: #### L 300.4310, L501.4021, L100.0100, L300.3900, L500.2500 ####[facility] [address] [place], [address] Hematocrit (Bld) [Volume fraction] 45.5 % Normal 40-[address] [facility] Comment on above: Performed By: #### L 300.4310, L501.4021, L100.0100, L300.3900, L500.2500 ####[facility] [address] [place], [address] Hemoglobin (Bld) [Mass/Vol] 16.0 g/dL Normal 13.0-16.[address] [facility] Comment on above: Performed By: #### L 300.4310, L501.4021, L100.0100, L300.3900, L500.2500 ####[facility] [address] [place], [address] IG% 0.500 Normal 0.0-0.[address] [facility] Comment on above: Result Comment: IG% - Immature Granulocytes (promyelocytes, myelocytes andmetamyelocytes) > 1% indicates that a LEFT SHIFT is Present. Performed By: #### L 300.4310, L501.4021, L100.0100, L300.3900, L500.2500 ####[facility] [address] [place], [address] Lymphocytes/100 WBC (Bld) 9.8 % Low 19-[address] [facility] Comment on above: Performed By: #### L 300.4310, L501.4021, L100.0100, L300.3900, L500.2500 ####[facility] [address] [place], [address] MCH (RBC) [Entitic mass] 30.0 pg Normal 27.0-32.[address] [facility] Comment on above: Performed By: #### L 300.4310, L501.4021, L100.0100, L300.3900, L500.2500 ####[facility] [address] [place], [address] MCHC (RBC) [Mass/Vol] 35.2 g/dL Normal 32-36 [facility] Comment on above: Performed By: #### L 300.4310, L501.4021, L100.0100, L300.3900, L500.2500 ####[facility] [address] [place], [address] MCV (RBC) [Entitic vol] 85.2 fL Normal 80-94 [facility] Comment on above: Performed By: #### L 300.4310, L501.4021, L100.0100, L300.3900, L500.2500 ####[facility] [address] [place], [address] Monocytes/100 WBC (Bld) 5.7 % Normal 0-10 [facility] Comment on above: Performed By: #### L 300.4310, L501.4021, L100.0100, L300.3900, L500.2500 ####[facility] [address] [place], [address] Neutrophils/100 WBC (Bld) 83.7 % High 47-[address] [facility] Comment on above: Performed By: #### L 300.4310, L501.4021, L100.0100, L300.3900, L500.2500 ####[facility] [address] [place], [address] Nucleated RBC (Bld) [#/Vol] 0 10*3/uL Normal 0-[address] [facility] Comment on above: Performed By: #### L 300.4310, L501.4021, L100.0100, L300.3900, L500.2500 ####[facility] [address] [place], [address] Platelet mean volume (Bld) [Entitic vol] 8.6 fL Normal 6.2-12.[address] [facility] Comment on above: Performed By: #### L 300.4310, L501.4021, L100.0100, L300.3900, L500.2500 ####[facility] [address] [place], [address] Platelets (Bld) [#/Vol] 216 10*3/uL Normal 150-[address] [facility] Comment on above: Performed By: #### L 300.4310, L501.4021, L100.0100, L300.3900, L500.2500 ####[facility] [address] [place], [address] RBC (Bld) [#/Vol] 5.34 10*6/uL Normal 4.6-6.2 [facility] Comment on above: Performed By: #### L 300.4310, L501.4021, L100.0100, L300.3900, L500.2500 ####[facility] [address] [place], [address] RDW SD 37.7 fl Normal 35.1-43.[address] [facility] Comment on above: Performed By: #### L 300.4310, L501.4021, L100.0100, L300.3900, L500.2500 ####[facility] [address] [place], [address] WBC (Bld) [#/Vol] 14.4 10*3/uL High 4.4-11.0 [facility] Comment on above: Performed By: #### L 300.4310, L501.4021, L100.0100, L300.3900, L500.2500 ####[facility] [address] [place], [address] Carbon dioxide, total [Moles /volume] in Central venous bloodOrdered By: Laureano Gallagher on 04-19-2024 CO2 [Moles/Vol] 22.0 mmol/L 21.0-32.[address] [facility] Chest 1 Viewon 04-19-2024 Chest [address] [facility] Chloride assayOrdered By: Donovan Gallagher on 04-19-2024 Chloride [Moles/Vol] 98 mmol/L 98-108 [facility] Consultation - Surgicalon Consultation - Surgical Normal [facility] Echo Completeon 04-19-20[address] Echo Complete [address] [facility] Emergency Department Summary on 04-19-2024 Emergency Department Summary Normal [facility] Eosinophil percentageOrdered By: Laureano Gallagher on 04-19-2024 Eosinophils/100 WBC (Bld) 0.0 % 0-[address] [facility] Erythrocyte distribution wid th ratioOrdered By: Laureano Gallagher on 04-19-2024 Erythrocyte distribution width (RBC) [Ratio] 12.3 % 11.6-14.[address] [facility] Erythrocyte distribution wid th standard deviationOrdered By: Laureano Gallagher on 04-19-2024 Erythrocyte distribution width (RBC) [Entitic vol] 37.7 fL 35.1-43.[address] [facility] Estimation of creatinine yahir aranceOrdered By: Laureano Gallagher on 04-19-2024 Estimated Creatinine Clearance Calc 59.89 ml/min 50-[address] [facility] GFR/1.73 sq M.predicted darrick g non-blacks MDRD (S/P/Bld) [Vol rate/Area]Ordered By: Laureano Gallagher on 04-19-2024 Estimated GFR (MDRD) Non-Af Amer [address] [facility] Comment on above: mL/min/1.73m2 CKD-EP I Creatinine Equation (2020) [facility] deOrdered By: Laureano Gallagher on 04-19-2024 Bedside Glucose (Misc Panel) 143 mg/dL High 74-[address] [facility] Comment on above: MANAGEMENT OF PATIEN T CARE PER NURSING PROTOCOL Glucose [Mass/Vol] 143 mg/dL High 74-106 [facility] H AND P Exam - Hospitaliston 04-19-2024 H&P Exam - Hospitalist Normal [facility] Hematocrit Auto (Bld) [Volum e fraction]Ordered By: Laureano Gallagher on 04-19-2024 Hematocrit (Bld) [Volume fraction] 45.5 % 40-[address] [facility] Hemoglobin measurementOrdere d By: Laureano Gallagher on 04-19-2024 Hemoglobin (Bld) [Mass/Vol] 16.0 g/dL 13.0-16.[address] [facility] Immature granulocytes/100 WB C Auto (Bld)Ordered By: Laureano Gallagher on 04-19-2024 Immature granulocytes/100 WBC (Bld) 0.500 % 0.0-0.[address] [facility] Comment on above: IG% - Immature Granu locytes (promyelocytes, myelocytes and metamyelocytes) > 1% indicates that a LEFT SHIFT is Present. International normalized rat io (INR) calculationOrdered By: Laureano Gallagher on 04-19-2024 INR Coag (Bld) [Relative time] 1.0 {INR} [facility] L499.0042on 04-19-2024 Trop T High Sen 30 ng/L High <=[address] [facility] Comment on above: Performed By: #### L 499.0042 ####[facility] [address] [place], [address] Trop T High Sen Normal <=[address] [facility] Comment on above: Result Comment: Canc elled via OM: sequence error Performed By: #### L 499.0042 ####[facility] [address] [place], [address] L499.0043on 04-19-2024 Trop T High Sen 35 ng/L High <=[address] [facility] Comment on above: Performed By: #### L 499.0043 ####[facility] [address] [place], [address] Trop T High Sen Normal <=[address] [facility] Comment on above: Result Comment: PER OM STARTED SERIES OVER ON FLOOR ER DID NOT DRAW SPECIMEN Performed By: #### L 499.0043 ####[facility] [address] [place], [address] L501.4021on 04-19-2024 Trop T High Sen 31 ng/L High <=[address] [facility] Comment on above: Performed By: #### L 501.4021 ####[facility] [address] [place], [address] Trop T High Sen 31 ng/L High <=[address] [facility] Comment on above: Performed By: #### L 300.4310, L501.4021, L100.0100, L300.3900, L500.2500 ####[facility] [address] [place], [address] Lymphocytes Auto (Unsp spec) [#/Vol]Ordered By: Laureano Gallagher on 04-19-2024 Lymphocytes (Bld) [#/Vol] 1.41 10*3/uL 0.83-4.[address] [facility] Lymphocytes/100 WBC Auto (Un sp spec)Ordered By: Laureano Gallagher on 04-19-2024 Lymphocytes/100 WBC (Bld) 9.8 % Low 19-[address] [facility] MCV (mean corpuscular volume ) determinationOrdered By: Laureano Gallagher on 04-19-2024 MCV (RBC) [Entitic vol] 85.2 fL 80-94 [facility] Magnetic resonance imaging r eportOrdered By: Yas Mobley on 04-19-2024 Study report [facility] Imaging Services [address] [place] [address] Spine Cervical (Routine) MR#: [id number] Acct: [id number] Name: YAS ROSA Rep #: [id number] : 1940 M 83 From: Selwyn Mobley DO PCP: Dr. Kwabena Menjivar MD Status: ADM IRINA Study:Spine Cervical (Routine) Date of Exam: 04/19/24 Exam# [id number] Ordering Dr: Keanu Alfred DO PROCEDURE: MRI [...] Menjivar MD; Dr. 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 Study report [facility] Imaging Services [address] [place] [address] [id number] Brain without Contrast MR#: [id number] Acct: [id number] Name: YAS ROSA Rep #: [id number] : 1940 M 83 From: Selwyn Mobley DO PCP: Dr. Kwabena Menjivar MD Status: ADM IRINA Study:Brain without Contrast Date of Exam: 04/19/24 Exam# [id number] Ordering Dr: Keanu Alfred DO PROCEDURE: MRI [...] Menjivar MD; Dr. 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 Mean corpuscular hemoglobin (MCH) determinationOrdered By: Laureano Gallagher on 04-19-2024 MCH (RBC) [Entitic mass] 30.0 pg 27.0-32.[address] [facility] Mean corpuscular hemoglobin concentration (MCHC) determinationOrdered By: Laureano Gallagher on 04-19-2024 MCHC (RBC) [Mass/Vol] 35.2 g/dL 32-36 [facility] Mean platelet volume determi nationOrdered By: Laureano Gallagher on 04-19-2024 Platelet mean volume (Bld) [Entitic vol] 8.6 fL 6.2-12.[address] [facility] Monocyte percentageOrdered B y: Laureano Gallagher on 04-19-2024 Monocytes/100 WBC (Bld) 5.7 % 0-10 [facility] Neutrophil percentageOrdered By: Laureano Gallagher on 04-19-2024 Neutrophils/100 WBC (Bld) 83.7 % High 47-[address] [facility] No Panel InformationOrdered By: Keanu Alfred on 04-19-2024 Troponin T High Sensitivity 31 ng/L High <[address] [facility] 31 ng/L High <[address] [facility] No Panel InformationOrdered By: Laureano Gallagher on 04-19-2024 Troponin T High Sensitivity 31 ng/L High <[address] [facility] Nucleated red blood cell per centageOrdered By: Laureano Gallagher on 04-19-2024 Nucleated RBC/100 WBC (Bld) [Ratio] 0 % 0-[address] [facility] Partial Thromboplast Timeon 04-19-2024 aPTT Coag (Bld) [Time] 23.4 s Low 24.1-36.2 [facility] Comment on above: Performed By: #### L 300.4310, L501.4021, L100.0100, L300.3900, L500.2500 ####[facility] [address] [place], [address] Platelet countOrdered By: Donovan Gallagher on 04-19-2024 Platelets (Bld) [#/Vol] 216 10*3/uL 150-[address] [facility] Potassium (Unsp spec) [Mass/ Vol]Ordered By: Laureano Gallagher on 04-19-2024 Potassium [Moles/Vol] 3.6 mmol/L 3.3-5.1 [facility] Prothrombin Time w/INRon INR Coag (PPP) [Relative time] 1.0 {INR} Normal [facility] Comment on above: Performed By: #### L 300.4310, L501.4021, L100.0100, L300.3900, L500.2500 ####[facility] [address] [place], [address] PT Coag (PPP) [Time] 13.5 s Normal 11.7-14.9 [facility] Comment on above: Performed By: #### L 300.4310, L501.4021, L100.0100, L300.3900, L500.2500 ####[facility] [address] [place], [address] Prothrombin timeOrdered By: Laureano Gallagher on 04-19-2024 PT Coag (PPP) [Time] 13.5 s 11.7-14.9 [facility] RBC Auto (Bld) [#/Vol]Ordere d By: Laureano Gallagher on 04-19-2024 RBC (Bld) [#/Vol] 5.34 10*6/uL 4.6-6.2 [facility] STROKE Brain/Head without Co nton 04-19-2024 STROKE Brain/Head without Cont Normal [facility] STROKE CTA Head AND Neck W/C onon 04-19-2024 STROKE CTA Head AND Neck W/Con Normal [facility] Serum creatinine measurement (mass/volume)Ordered By: Laureano Gallagher on 04-19-2024 Creatinine [Mass/Vol] 0.92 mg/dL 0.70-1.20 [facility] Serum glucose measurement (m ass/volume)Ordered By: Laureano Gallagher on 04-19-2024 Glucose [Mass/Vol] 152 mg/dL High 70-99 [facility] Serum or plasma calcium ratna urement (mass/volume)Ordered By: Laureano Gallagher on 04-19-2024 Calcium [Mass/Vol] 9.5 mg/dL 7.6-11.0 [facility] Serum or plasma urea nitroge n measurement (mass/volume)Ordered By: Laureano Gallagher on 04-19-2024 Urea nitrogen [Mass/Vol] 20 mg/dL High 4-[address] [facility] Sinus/Facial Boneon 04-20-19 25 Sinus/Facial Bone Normal [facility] Sodium levelOrdered By: Surinder Gallagher on 04-19-2024 Sodium [Moles/Vol] 137 mmol/L 133-145 [facility] Spine Cervical (Routine)on 0 04-19-2024 Spine Cervical (Routine) Normal [facility] Troponin T.cardiac High sens itivity method [Mass/Vol]Ordered By: Keanu Alfred on 04-19-2024 Troponin T High Sensitivity 4 Hour 35 ng/L High <[address] [facility] Troponin T High Sensitivity 2 Hour 30 ng/L High <[address] [facility] Troponin T.cardiac [Mass/vol ume] in Serum or Plasma by High sensitivity methodOrdered By: Keanu Alfred on 04-19-2024 Troponin T.cardiac High sensitivity method [Mass/Vol] 35 ng/L High <[address] [facility] Troponin T.cardiac High sensitivity method [Mass/Vol] 30 ng/L High <[address] [facility] White blood cell (WBC) count Ordered By: Laureano Gallagher on 04-19-2024 WBC (Bld) [#/Vol] 14.4 10*3/uL High 4.4-11.0 [facility] aPTT Coag (PPP) [Time]Ordere d By: Laureano Gallagher on 04-19-2024 aPTT Coag (Bld) [Time] 23.4 s Low 24.1-36.2 [facility] Cerv Spine 4 or 5 Viewson Cerv Spine 4 or 5 Views Normal [facility] Brain/Head without Contrasto n 02-26-2024 Brain/Head without Contrast Normal [facility] Emergency Department Summary on 02-26-2024 Emergency Department Summary Normal [facility] Knee 4 or More Viewson 02-25 Knee 4 or More Views Normal [facility] Shoulder min 2 Viewson 02-25 Shoulder min 2 Views Normal [facility] Absolute lymphocyte countOrd ered By: William Menjivar on 10-22-2022 Lymphocytes Auto (Unsp spec) [#/Vol] 2.36 10*3/uL 0.83-4.[address] [facility] Basophil percentageOrdered B y: William Menjivar on 10-22-2022 Basophils/100 WBC (Bld) 0.5 % 0-1 [facility] Bilirubin [Mass/Vol] 0.40 mg/dL 0.20-1.00 [facility] Comment on above: For patients on eltr ombopag therapy, use of Dimension Celina TBIL is not recommended. Chloride [Moles/Vol] 107 mmol/L 98-107 [facility] Cholesterol [Mass/Vol] 171 mg/dL <200 [facility] Comment on above: <200 mg/dL Desirable 200-240 mg/dL Borderline >240 mg/dL High Risk Eosinophils/100 WBC (Bld) 2.4 % 0-[address] [facility] Glucose [Mass/Vol] 94 mg/dL 74-106 [facility] Neutrophils (Bld) [#/Vol] 3.5 10*3/uL 2.0-7.[address] [facility] Neutrophils/100 WBC (Bld) 53.3 % 47-[address] [facility] Potassium [Moles/Vol] 4.0 mmol/L 3.5-5.1 [facility] Protein [Mass/Vol] 6.8 g/dL 6.4-8.2 [facility] Sodium [Moles/Vol] 138 mmol/L 136-145 [facility] Testosterone [Mass/Vol] 600.99 ng/dL [facility] Comment on above: CENTRAL 90% REFERENC E RANGES MALE AGE <50 197.44 - 669.58 ng/dL MALE AGE > or = 50 187.72 - 684.19 ng/dL FEMALE AGE <50 8.38 - 35.01 ng/dL FEMALE AGE > or = 50 <7.00 - 35.92 ng/dL Effective as of 09/03/20 Triglyceride [Mass/Vol] 144 mg/dL <199 [facility] Comment on above: The drugs N-Acetylcy steine and Metamizole may falsely depress this assay.Serum Triglycerides Reference Interval Normal <150 mg/dL Borderline high 150 - 199 mg/dL High 200 - 499 mg/dL Very High > or = 500 mg/dL WBC (Bld) [#/Vol] 6.6 10*3/uL 4.4-11.0 [facility] Blood erythrocytes count (nu mber/volume)Ordered By: William Menjivar on 10-22-2022 RBC (Bld) [#/Vol] 5.14 10*6/uL 4.6-6.2 [facility] Blood hemoglobin measurement (mass/volume)Ordered By: William Menjivar on 10-22-2022 Hemoglobin (Bld) [Mass/Vol] 15.5 g/dL 13.0-16.[address] [facility] Blood lymphocytes/100 leukoc ytesOrdered By: William Menjivar on 10-22-2022 Lymphocytes/100 WBC (Bld) 35.8 % 19-[address] [facility] Blood monocytes/100 leukocyt esOrdered By: William Menjivar on 10-22-2022 Monocytes/100 WBC (Bld) 7.7 % 0-10 [facility] Blood platelet mean volumeOr dered By: William Menjivar on 10-22-2022 Platelet mean volume (Bld) [Entitic vol] 8.8 fL 6.2-12.[address] [facility] Determination of erythrocyte mean corpuscular volume (MCV)Ordered By: William Menjivar on 10-22-2022 MCV (RBC) [Entitic vol] 90.1 fL 80-94 [facility] Erythrocyte sedimentation ra teOrdered By: William Menjivar on 10-22-2022 ESR (Bld) [Velocity] 10 mm/h 0-20 [facility] Hematocrit Auto (Bld) [Volum e fraction]Ordered By: William Menjivar on 10-22-2022 Hematocrit (Bld) [Volume fraction] 46.3 % 40-[address] [facility] Iron measurement (mass/mass) Ordered By: William Menjivar on 10-22-2022 Iron (Unsp spec) [Mass/Mass] 75 ug/dL 65-[address] [facility] Laboratory - Chemistry and C hemistry - challengeOrdered By: William Menjivar on 10-22-2022 ALP [Catalytic activity/Vol] 98 U/L 45-[address] [facility] ALT [Catalytic activity/Vol] 28 U/L 16-[address] [facility] CO2 [Moles/Vol] 27.0 mmol/L 21.0-32.[address] [facility] Cobalamin (Vitamin B12) [Mass/Vol] 266 pg/mL 211-[address] [facility] Globulin (S) [Mass/Vol] 3.0 g/dL 2.2-4.2 [facility] Urea nitrogen/Creatinine [Mass ratio] 12.5 mg/mg 10-[address] [facility] Laboratory - Hematology and Cell countsOrdered By: William Menjivar on 10-22-2022 Erythrocyte distribution width (RBC) [Entitic vol] 41.8 fL 35.1-43.[address] [facility] Erythrocyte distribution width (RBC) [Ratio] 12.5 % 11.6-14.[address] [facility] Immature granulocytes/100 WBC (Bld) 0.300 % 0.0-0.[address] [facility] Comment on above: IG% - Immature Granu locytes (promyelocytes, myelocytes and metamyelocytes) > 1% indicates that a LEFT SHIFT is Present. MCH (RBC) [Entitic mass] 30.2 pg 27.0-32.[address] [facility] Nucleated RBC/100 WBC (Bld) [Ratio] 0 % 0-5 [facility] Auto (RBC) [Mass/Vol]Or dered By: William Menjivar on 10-22-2022 MCHC (RBC) [Mass/Vol] 33.5 g/dL 32-36 [facility] No Panel InformationOrdered By: William Menjivar on 10-22-2022 Anti-Nuclear Antibody Screen Positive Negative [facility] Comment on above: Performed at: - [address] [id number] Director: Nino Del Castillo PhD, Phone: [phone] Estimated GFR (MDRD) Amer 119 mL/min >[address] [facility] Comment on above: GFR Calc Estimated GFR (MDRD) Non-Af Amer 99 mL/min >[address] [facility] Comment on above: Non- GFR Calc Thyroid Stimulating Hormone (TSH) 1.22 uIU/mL 0.358-3.[address] [facility] Vitamin D 25-Hydroxy 28.9 ng/mL [facility] Comment on above: Vitamin D 25(OH) Sta tus Range Deficiency <20 ng/mL (50nmol/L) Insufficiency 20 - 30 ng/mL (50 - 75 nmol/L) Sufficiency 30 - 100 ng/mL (75 - 250 nmol/L) Toxicity >100 ng/mL (>250 nmol/L) Platelets bldOrdered By: Blayne Menjivar on 10-22-2022 Platelets (Bld) [#/Vol] 210 10*3/uL 150-[address] [facility] Serum or plasma C reactive p rotein measurement (mass/volume)Ordered By: William Menjviar on 10-22-2022 CRP [Mass/Vol] mg/L 0.0-3.[address] [facility] Comment on above: C-Reactive Protein ( CRP) provides useful information for thediagnosis, therapy and monitoring of inflammatory processesand associated diseases. For the evaluation of Relative Riskfor Cardiovascular Disease, a High Sensitivity CRP (HSCRP)should be ordered. Serum or plasma albumin ratna urement (mass/volume)Ordered By: William Menjivar on 10-22-2022 Albumin [Mass/Vol] 3.8 g/dL 3.2-5.0 [facility] Serum or plasma albumin/glob ulin mass ratioOrdered By: William Menjivar on 10-22-2022 Albumin/Globulin [Mass ratio] 1.3 {ratio} 0.9-2.[address] [facility] Serum or plasma calcium ratna urement (mass/volume)Ordered By: William Menjivar on 10-22-2022 Calcium [Mass/Vol] 8.8 mg/dL 8.5-10.1 [facility] Serum or plasma cholesterol in HDL measurement (mass/volume)Ordered By: William Menjivar on 10-22-2022 Cholesterol in HDL [Mass/Vol] 52 mg/dL >[address] [facility] Comment on above: The drugs N-Acetylcy steine and Metamizole may falsely depress this assay. Reference Range HDL <40 mg/dL Low HDL Cholesterol HDL >or= 60 mg/dL High HDL Cholesterol Serum or plasma cholesterol in VLDL measurement (mass/volume)Ordered By: William Menjviar on 10-22-2022 Cholesterol in VLDL [Mass/Vol] 29 mg/dL 5-[address] [facility] Serum or plasma creatinine m easurement (mass/volume)Ordered By: William Menjivar on 10-22-2022 Creatinine [Mass/Vol] 0.80 mg/dL 0.70-1.30 [facility] Comment on above: The validity of the calculated GFR & GFRAA in patients over 70 years has not been determined. Clinical correlation is essential. Serum or plasma ferritin darline surement (mass/volume)Ordered By: William Menjivar on 10-22-2022 Ferritin [Mass/Vol] 168 ng/mL 26-388 [facility] Serum or plasma low density lipoprotein (LDL) cholesterol measurement (mass/volume)Ordered By: William Menjivar on 10-22-2022 Cholesterol in LDL [Mass/Vol] 90 mg/dL 0-[address] [facility] Serum or plasma urea nitroge n measurement (mass/volume)Ordered By: William Menjivar on 10-22-2022 Urea nitrogen [Mass/Vol] 10 mg/dL 7-[address] [facility] Serum rheumatoid factor dete ctionOrdered By: William Menjivar on 10-22-2022 Rheumatoid factor Ql (S) < 10.0 IU/mL <[address] [facility] Thin prep Papanicolaou smear with manual screeningOrdered By: William Menjivar on 10-22-2022 Thin prep Papanicolaou smear with manual screening 20 U/L 15-[address] [facility] Thin prep Papanicolaou smear with manual screening 4 5-15 [facility] Emergency Room Note on 09-18-2016 [facility] Note Normal [facility] ([place] .Auto Diffon 09-15-2016 Basophils Auto #/vol (Bld) 0.10 10 3/mcL Normal 0.00-0.19 [facility] ([place]) Comment on above: Performed By: #### C BC, ADIFF, ANEU, TROP, GFR, CMP ####Macy [address] [place], [place] [address] Basophils/100 WBC Auto (Bld) 0.7 % Normal 0.0-2.5 [facility] ([place]) Comment on above: Performed By: #### C BC, ADIFF, ANEU, TROP, GFR, CMP ####Macy [address] [place], [place] [address] Eosinophils 0.00 10 3/mcL Normal 0.00-0.40 [facility] ([place]) Comment on above: Performed By: #### C BC, ADIFF, ANEU, TROP, GFR, CMP ####Macy [address] [place], [place] [address] Eosinophils/100 leukocytes 0.5 % Normal 0.0-7.0 [facility] ([place]) Comment on above: Performed By: #### C BC, ADIFF, ANEU, TROP, GFR, CMP ####Macy [address] [place], [place] [address] Lymphocytes 1.90 10 3/mcL Normal 0.77-3.85 [facility] ([place]) Comment on above: Performed By: #### C BC, ADIFF, ANEU, TROP, GFR, CMP ####Macy [address] [place], [place] [address] Lymphocytes/100 leukocytes 21.5 % Normal 10.0-50.0 [facility] ([place]) Comment on above: Performed By: #### C BC, ADIFF, ANEU, TROP, GFR, CMP ####M[address] [place], [place] [address] Monocytes 0.70 10 3/mcL Normal 0.15-1.00 [facility] ([place]) Comment on above: Performed By: #### C BC, ADIFF, ANEU, TROP, GFR, CMP ####Macy [address] [place], [place] [address] Monocytes/100 leukocytes 7.5 % Normal 1.7-13.0 [facility] ([place]) Comment on above: Performed By: #### C BC, ADIFF, ANEU, TROP, GFR, CMP ####Macy [address] [place], [place] [address] Neutrophils/100 WBC Auto (Bld) 69.8 % Normal 37.0-80.0 [facility] ([place]) Comment on above: Performed By: #### C BC, ADIFF, ANEU, TROP, GFR, CMP ####Macy [address] [place], [place] [address] .NEUABSon 09-15-2016 Neutrophils 6.30 10 3/mcL High 2.85-6.16 [facility] ([place]) Comment on above: Performed By: #### C BC, ADIFF, ANEU, TROP, GFR, CMP ####Macy [address] [place], [place] [address] CBCon 09-15-2016 Erythrocyte distribution width Auto Ratio (RBC) 13.0 % Normal 11.5-14.5 [facility] ([place]) Comment on above: Performed By: #### C BC, ADIFF, ANEU, TROP, GFR, CMP ####[address]acy [address] [place], [place] [address] Erythrocytes (RBC) 5.10 10 6/mcL Normal 4.04-6.13 [facility] ([place]) Comment on above: Performed By: #### C BC, ADIFF, ANEU, TROP, GFR, CMP ####[address] [place], [place] [address] Hematocrit (HCT) 43.6 % Normal 42.0-52.0 [facility] ([place]) Comment on above: Performed By: #### C BC, ADIFF, ANEU, TROP, GFR, CMP ####Macy [address] [place], [place] [address] Hemoglobin mass conc (Bld) 14.9 G/dL Normal 14.0-18.0 [facility] ([place]) Comment on above: Performed By: #### C BC, ADIFF, ANEU, TROP, GFR, CMP ####Macy [address] [place], [place] [address] MCH 29.1 pg Normal 27.0-31.2 [facility] ([place]) Comment on above: Performed By: #### C BC, ADIFF, ANEU, TROP, GFR, CMP ####Macy [address] [place], [place] [address] MCHC mass conc (RBC) 34.1 G/dL Normal 31.8-35.4 [facility] ([place]) Comment on above: Performed By: #### C BC, ADIFF, ANEU, TROP, GFR, CMP ####Macy [address] [place], [place] [address] MCV 85.5 fL Normal 80.0-94.0 [facility] ([place]) Comment on above: Performed By: #### C BC, ADIFF, ANEU, TROP, GFR, CMP ####Macy [address] [place], [place] [address] Platelet mean volume (PMV) 6.7 fL Low 7.4-10.4 [facility] ([place]) Comment on above: Performed By: #### C BC, ADIFF, ANEU, TROP, GFR, CMP ####Macy [address] [place], [place] [address] Platelets 207 10 3/mcL Normal 130-400 [facility] ([place]) Comment on above: Performed By: #### C BC, ADIFF, ANEU, TROP, GFR, CMP ####Macy [address] [place], [place] [address] WBC (Leukocytes) 9.00 10 3/mcL Normal 4.60-10.80 [facility] ([place]) Comment on above: Performed By: #### C BC, ADIFF, ANEU, TROP, GFR, CMP ####[address] [place], [place] [address] CMPon 09-15-2016 BUN/Creatinine Ratio 11 ratio Normal 7-27 [facility] ([place]) Comment on above: Performed By: #### C BC, ADIFF, ANEU, TROP, GFR, CMP ####Macy [address] [place], [place] [address] Creatinine 1.1 mg/dL Normal 0.6-1.2 [facility] ([place]) Comment on above: Performed By: #### C BC, ADIFF, ANEU, TROP, GFR, CMP ####Macy [address] [place], [place] [address] Alanine aminotransferase (ALT) 13 ZZ Normal 10-35 [facility] ([place]) Comment on above: Performed By: #### C BC, ADIFF, ANEU, TROP, GFR, CMP ####Macy [address] [place], [place] [address] Albumin 4.6 G/dL Normal 3.4-4.8 [facility] ([place]) Comment on above: Performed By: #### C BC, ADIFF, ANEU, TROP, GFR, CMP ####Macy [address] [place], [place] [address] Albumin/Globulin Ratio 1.8 {ratio} Normal 1.1-2.5 A [facility] ([place]) Comment on above: Performed By: #### C BC, ADIFF, ANEU, TROP, GFR, CMP ####Macy [address] [place], [place] [address] Alk Phos 80 ZZ Normal 40-135 [facility] ([place]) Comment on above: Performed By: #### C BC, ADIFF, ANEU, TROP, GFR, CMP ####Macy [address] [place], [place] [address] Aspartate aminotransferase (AST) 14 ZZ Normal 10-40 [facility] ([place]) Comment on above: Performed By: #### C BC, ADIFF, ANEU, TROP, GFR, CMP ####Macy [address] [place], [place] [address] Bili Total 0.7 mg/dL Normal 0.2-1.0 [facility] ([place]) Comment on above: Performed By: #### C BC, ADIFF, ANEU, TROP, GFR, CMP ####Macy [address] [place], [place] [address] Calcium 9.3 mg/dL Normal 8.4-10.2 [facility] ([place]) Comment on above: Performed By: #### C BC, ADIFF, ANEU, TROP, GFR, CMP ####Macy [address] [place], [place] [address] CO2 23 mmol/L Normal 23-31 [facility] ([place]) Comment on above: Performed By: #### C BC, ADIFF, ANEU, TROP, GFR, CMP ####Macy [address] [place], [place] [address] Electrolyte Balance 10.0 mEq/L Normal [facility] ([place]) Comment on above: Performed By: #### C BC, ADIFF, ANEU, TROP, GFR, CMP ####[address] [place], [place] [address] Globulin 2.5 G/dL Normal [facility] ([place]) Comment on above: Performed By: #### C BC, ADIFF, ANEU, TROP, GFR, CMP ####[address] [place], [place] [address] Glucose mass conc 104 mg/dL Normal 83-110 [facility] ([place]) Comment on above: Performed By: #### C BC, ADIFF, ANEU, TROP, GFR, CMP ####M[address] [place], [place] [address] Protein 7.1 G/dL Normal 6.0-8.3 [facility] ([place]) Comment on above: Performed By: #### C BC, ADIFF, ANEU, TROP, GFR, CMP ####Macy [address] [place], [place] [address] Urea nitrogen 12.6 mg/dL Normal 7.0-18.0 [facility] ([place]) Comment on above: Performed By: #### C BC, ADIFF, ANEU, TROP, GFR, CMP ####Macy [address] [place], [place] [address] Chloride 102 mmol/L Normal 98-107 [facility] ([place]) Comment on above: Performed By: #### C BC, ADIFF, ANEU, TROP, GFR, CMP ####M[address] [place], [place] [address] Potassium molar conc 4.1 mmol/L Normal 3.5-5.1 [facility] ([place]) Comment on above: Performed By: #### C BC, ADIFF, ANEU, TROP, GFR, CMP ####Macy [address] [place], [place] [address] Sodium 135 mmol/L Low 136-146 [facility] ([place]) Comment on above: Performed By: #### C BC, ADIFF, ANEU, TROP, GFR, CMP ####Macy [address] [place], [place] [address] CT ABD/PELVIS W/ IV CONTRAST ONLYon 09-15-2016 [...] AM Sign Date: 09/15/2016 12:20:36 AM Normal [facility] ([place]) GFRon 09-15-2016 eGFR (non-black) 79 ml/min/1.73sqm Normal A [facility] ([place]) Comment on above: Result Comment: GFR Population [...] ADIFF, ANEU, TROP, GFR, CMP ####Macy [address] [place], [place] [address] eGFR (non-black) mL/min/{1.73_m2} Normal [facility] ([place]) Comment on above: Result Comment: GFR Population [...] BC, ADIFF, ANEU, TROP, GFR, CMP ####Macy [address] [place], [place] [address] LIPon 09-15-2016 Lipase Level 26 ZZ Normal [facility] ([place]) Comment on above: Performed By: #### C BC, ADIFF, ANEU, TROP, GFR, CMP ####Macy [address] [place], [place] [address] [facility] Note on 09-15-2016 [facility] Note Normal [facility] ([place]) Patient Summary Documentson 09-15-2016 Patient Summary Documents Normal [facility] ([place]) .Auto Diffon 09-12-2016 Basophils Auto #/vol (Bld) 0.00 10 3/mcL Normal 0.00-0.19 [facility] ([place]) Comment on above: Performed By: #### C BC, ADIFF, ANEU, TROP, GFR, CMP ####Macy [address] [place], [place] [address] Basophils/100 WBC Auto (Bld) 0.5 % Normal 0.0-2.5 [facility] ([place]) Comment on above: Performed By: #### C BC, ADIFF, ANEU, TROP, GFR, CMP ####[address] [address] Eosinophils 0.00 10 3/mcL Normal 0.00-0.40 [facility] ([place]) Comment on above: Performed By: #### C BC, ADIFF, ANEU, TROP, GFR, CMP ####[address] [place], [place] [address] Eosinophils/100 leukocytes 0.4 % Normal 0.0-7.0 [facility] ([place]) Comment on above: Performed By: #### C BC, ADIFF, ANEU, TROP, GFR, CMP ####[address]acy [address] [place] [address] Lymphocytes 2.50 10 3/mcL Normal 0.77-3.85 [facility] ([place]) Comment on above: Performed By: #### C BC, ADIFF, ANEU, TROP, GFR, CMP ####Macy [address] [place], [place] [address] Lymphocytes/100 leukocytes 28.8 % Normal 10.0-50.0 [facility] ([place]) Comment on above: Performed By: #### C BC, ADIFF, ANEU, TROP, GFR, CMP ####Macy [address] [place], [place] [address] Monocytes 0.80 10 3/mcL Normal 0.15-1.00 [facility] ([place]) Comment on above: Performed By: #### C BC, ADIFF, ANEU, TROP, GFR, CMP ####Macy [address] [place], [place] [address] Monocytes/100 leukocytes 9.2 % Normal 1.7-13.0 [facility] ([place]) Comment on above: Performed By: #### C BC, ADIFF, ANEU, TROP, GFR, CMP ####Macy [address] [place], [place] [address] Neutrophils/100 WBC Auto (Bld) 61.1 % Normal 37.0-80.0 [facility] ([place]) Comment on above: Performed By: #### C BC, ADIFF, ANEU, TROP, GFR, CMP ####Macy [address] [place], [place] [address] .NEUABSon 09-12-2016 Neutrophils 5.30 10 3/mcL Normal 2.85-6.16 [facility] ([place]) Comment on above: Performed By: #### C BC, ADIFF, ANEU, TROP, GFR, CMP ####Macy [address] [place], [place] [address] .Urinalysis Microscopic (AO) on 09-12-2016 UA Squam Epithelial 0-5 Abnormal None Seen [facility] ([place]) Comment on above: Performed By: #### U A, UAMICAO ####Macy [address] [place], [place] [address] UA WBC None Seen Normal None Seen [facility] ([place]) Comment on above: Performed By: #### U A, UAMICAO ####Macy [address] [place] [id number] Urine, erythrocytes None Seen Normal None Seen [facility] ([place]) Comment on above: Performed By: #### U A, UAMICAO ####Macy [address] [place], [place] [address] CBCon 09-12-2016 Erythrocyte distribution width Auto Ratio (RBC) 12.9 % Normal 11.5-14.5 [facility] ([place]) Comment on above: Performed By: #### C BC, ADIFF, ANEU, TROP, GFR, CMP ####Macy [address] [place], [place] [address] Erythrocytes (RBC) 4.97 10 6/mcL Normal 4.04-6.13 [facility] ([place]) Comment on above: Performed By: #### C BC, ADIFF, ANEU, TROP, GFR, CMP ####Macy [address] [place] [id number] Hematocrit (HCT) 42.2 % Normal 42.0-52.0 [facility] ([place]) Comment on above: Performed By: #### C BC, ADIFF, ANEU, TROP, GFR, CMP ####Macy [address] [place] [address] Hemoglobin mass conc (Bld) 14.5 G/dL Normal 14.0-18.0 [facility] ([place]) Comment on above: Performed By: #### C BC, ADIFF, ANEU, TROP, GFR, CMP ####Macy [address] [place] [address] MCH 29.3 pg Normal 27.0-31.2 [facility] ([place]) Comment on above: Performed By: #### C BC, ADIFF, ANEU, TROP, GFR, CMP ####Macy [address] [place] [phone] MCHC mass conc (RBC) 34.4 G/dL Normal 31.8-35.4 [facility] ([place]) Comment on above: Performed By: #### C BC, ADIFF, ANEU, TROP, GFR, CMP ####Macy [address] [place] [address] MCV 85.0 fL Normal 80.0-94.0 [facility] ([place]) Comment on above: Performed By: #### C BC, ADIFF, ANEU, TROP, GFR, CMP ####Macy [address] [place] [id number] Platelet mean volume (PMV) 6.8 fL Low 7.4-10.4 [facility] ([place]) Comment on above: Performed By: #### C BC, ADIFF, ANEU, TROP, GFR, CMP ####Macy [address] [place], [place] [address] Platelets 196 10 3/mcL Normal 130-400 [facility] ([place]) Comment on above: Performed By: #### C BC, ADIFF, ANEU, TROP, GFR, CMP ####Macy [address] [place], [place] [address] WBC (Leukocytes) 8.70 10 3/mcL Normal 4.60-10.80 [facility] ([place]) Comment on above: Performed By: #### C BC, ADIFF, ANEU, TROP, GFR, CMP ####Macy [address] [place], [place] [address] CMPon 09-12-2016 Aspartate aminotransferase (AST) 15 ZZ Normal 10-40 [facility] ([place]) Comment on above: Performed By: #### C BC, ADIFF, ANEU, TROP, GFR, CMP ####Macy [address] [place], [place] [address] Alanine aminotransferase (ALT) 14 ZZ Normal 10-35 [facility] ([place]) Comment on above: Performed By: #### C BC, ADIFF, ANEU, TROP, GFR, CMP ####Macy [address] [place], [place] [address] Alk Phos 74 ZZ Normal 40-135 [facility] ([place]) Comment on above: Performed By: #### C BC, ADIFF, ANEU, TROP, GFR, CMP ####Macy [address] [place], [place] [address] Glucose mass conc 96 mg/dL Normal 83-110 [facility] ([place]) Comment on above: Performed By: #### C BC, ADIFF, ANEU, TROP, GFR, CMP ####Macy [address] [place], [place] [address] Albumin/Globulin Ratio 1.9 {ratio} Normal 1.1-2.5 A [facility] ([place]) Comment on above: Performed By: #### C BC, ADIFF, ANEU, TROP, GFR, CMP ####[place] [address] [place], [place] [address] Globulin 2.3 G/dL Normal [facility] ([place]) Comment on above: Performed By: #### C BC, ADIFF, ANEU, TROP, GFR, CMP ####Macy [address] [place], [place] [address] Protein 6.6 G/dL Normal 6.0-8.3 [facility] ([place]) Comment on above: Performed By: #### C BC, ADIFF, ANEU, TROP, GFR, CMP ####Mayc [address] [place] [address] Chloride 101 mmol/L Normal 98-107 [facility] ([place]) Comment on above: Performed By: #### C BC, ADIFF, ANEU, TROP, GFR, CMP ####Macy [address] [place] [address] Electrolyte Balance 11.0 mEq/L Normal [facility] ([place]) Comment on above: Performed By: #### C BC, ADIFF, ANEU, TROP, GFR, CMP ####Macy [address] [place] [address] Potassium molar conc 4.2 mmol/L Normal 3.5-5.1 [facility] ([place]) Comment on above: Performed By: #### C BC, ADIFF, ANEU, TROP, GFR, CMP ####Macy [address] [place] [address] Sodium 135 mmol/L Low 136-146 [facility] ([place]) Comment on above: Performed By: #### C BC, ADIFF, ANEU, TROP, GFR, CMP ####Macy [address] [place] [address] Bili Total 0.8 mg/dL Normal 0.2-1.0 [facility] ([place]) Comment on above: Performed By: #### C BC, ADIFF, ANEU, TROP, GFR, CMP ####Macy [address] [place] [address] BUN/Creatinine Ratio 14 ratio Normal 7-27 [facility] ([place]) Comment on above: Performed By: #### C BC, ADIFF, ANEU, TROP, GFR, CMP ####Macy [address] [place], [place] [address] Calcium 8.9 mg/dL Normal 8.4-10.2 [facility] ([place]) Comment on above: Performed By: #### C BC, ADIFF, ANEU, TROP, GFR, CMP ####Macy [address] [place], [place] [address] CO2 23 mmol/L Normal 23-31 [facility] ([place]) Comment on above: Performed By: #### C BC, ADIFF, ANEU, TROP, GFR, CMP ####Macy [address] [place], [place] [address] Creatinine 1.0 mg/dL Normal 0.6-1.2 [facility] ([place]) Comment on above: Performed By: #### C BC, ADIFF, ANEU, TROP, GFR, CMP ####Macy [address] [place], [place] [address] Albumin 4.3 G/dL Normal 3.4-4.8 [facility] ([place]) Comment on above: Performed By: #### C BC, ADIFF, ANEU, TROP, GFR, CMP ####[address] [place], [place] [address] Urea nitrogen 13.9 mg/dL Normal 7.0-18.0 [facility] ([place]) Comment on above: Performed By: #### C BC, ADIFF, ANEU, TROP, GFR, CMP ####[place] [address] [place], [place] [address] CT HEAD OR BRAIN W/O CONTRAS Ton [...] PM Sign Date: 09/12/2016 5:53:51 PM Normal [facility] ([place]) GFRon 09-12-2016 eGFR (non-black) mL/min/{1.73_m2} Normal [facility] ([place]) Comment on above: Result Comment: GFR Population [...] BC, ADIFF, ANEU, TROP, GFR, CMP ####Macy [address] [place], [place] [address] eGFR (non-black) 91 ml/min/1.73sqm Normal A [facility] ([place]) Comment on above: Result Comment: GFR Population [...] ADIFF, ANEU, TROP, GFR, CMP ####Macy [address] [place], [place] [address] Patient Summary Documentson 09-12-2016 Patient Summary Documents Normal [facility] ([place]) TROPon 09-12-2016 Troponin I.cardiac mass conc ng/mL Normal 0.00-0.30 [facility] ([place]) Comment on above: Result Comment: Belo w measuring range>=0.30 Consistent with cardiac damage, increased clinical risk and possibility of myocardial infarction. Serial measurements, clinical history, appropriate symptoms and/or ECG changes may help assess possibility of [place].*Other non-acute coronary syndrome conditions such as CHF, myocarditis, pulmonary emboli, sepsis and cardiac surgery could result in myocardial damage and increased troponin levels. Performed By: #### C BC, ADIFF, ANEU, TROP, GFR, CMP ####Macy [address] [place], [place] [address] UAon 09-12-2016 UA Appear CLEAR Normal [facility] ([place]) Comment on above: Performed By: #### U A, UAMICAO ####Macy [address] [place], [place] [address] UA Blood Negative [facility]) Comment on above: Performed By: #### U A, UAMICAO ####Macy [address] [place], [place] [address] UA Leuk Est Negative [facility] ([place]) Comment on above: Performed By: #### U A, UAMICAO ####Macy [address] [place], [place] [address] UA Nitrite Negative [facility] ([place]) Comment on above: Performed By: #### U A, UAMICAO ####Macy [address] [place] [id number] UA pH 5.5 [facility] ([place]) Comment on above: Performed By: #### U A, UAMICAO ####Macy [address] [place], [place] [address] UA Protein Negative [facility] ([place]) Comment on above: Performed By: #### U A, UAMICAO ####Macy [place] [place], [place] [address] UA Spec Grav 1.020 [facility] ([place]) Comment on above: Performed By: #### U A, UAMICAO ####Macy [address] [place], [place] [address] UA Specimen Type Clean Catch [facility] ([place]) Comment on above: Performed By: #### U A, UAMICAO ####Macy [address] [place] [address] UA Urobilinogen 0.2 E.U./dL [facility] ([place]) Comment on above: Performed By: #### U A, UAMICAO ####Macy [address] [place], [place] [address] Urine, color YELLOW [facility] ([place]) Comment on above: Performed By: #### U A, UAMICAO ####Macy [place] [place], [place] [address] Urine, glucose Negative [facility] ([place]) Comment on above: Performed By: #### U A, UAMICAO ####Macy [address] [place], [place] [address] Urine, ketones presence 40 mg/dL Abnormal Negative [facility] ([place]) Comment on above: Performed By: #### U A, UAMICAO ####Macy [address] [place], [place] [address] Urine, urobilinogen Negative [facility] ([place]) Comment on above: Performed By: #### U A, UAMICAO ####Macy [address] [place], [place] [address] XR CHEST 1 VIEWon 09-12-2016 XR CHEST [...] PM Sign Date: 09/12/2016 5:55:03 PM Normal [facility] ([place]) Vital Signs Date Time Vital Sign Value Performing Clinician Faci lity 10-18-2024 04:00-0400 Body temperature 98.2 [degF] Dr. Kwabena Menjivar MD Work Phone: [facility] 10-18-2024 04:00-0400 Diastolic blood pressure 91 mm[Hg] Dr. Kwabena Menjivar MD Work Phone: [facility] 10-18-2024 04:00-0400 Heart rate 71 /min Dr. Kwabena Menjivar MD Work Phone: [facility] 10-18-2024 04:00-0400 Respiratory rate 18 /min Dr. Kwabena Menjivar MD Work Phone: [facility] 10-18-2024 04:00-0400 SaO2% (BldA) [Mass fraction] 99 % Dr. Kwabena Menjivar MD Work Phone: [facility] 10-18-2024 04:00-0400 Systolic blood pressure 165 mm[Hg] Dr. Kwabena Menjivar MD Work Phone: [facility] 10-17-2024 23:16-0400 Body height 172.[address] Kwabena Menjivar MD Work Phone: [facility] 10-17-2024 23:16-0400 Body mass index (BMI) [Ratio] 23.2 kg/m2 Dr. Kwabena Menjivar MD Work Phone: [facility] 10-17-2024 23:16-0400 Body weight 69.[address] Kwabena Menjivar MD Work Phone: [facility] 08-11-2024 14:00-0400 Diastolic blood pressure 84 mm[Hg] Dr. Kwabena Menjivar MD Work Phone: [facility] 08-11-2024 14:00-0400 Heart rate 60 /min Dr. Kwabena Menjivar MD Work Phone: [facility] 08-11-2024 14:00-0400 Respiratory rate 14 /min Dr. Kwabena Menjivar MD Work Phone: [facility] 08-11-2024 14:00-0400 SaO2% (BldA) [Mass fraction] 94 % Dr. Kwabena Menjivar MD Work Phone: [facility] 08-11-2024 14:00-0400 Systolic blood pressure 158 mm[Hg] Dr. Kwabena Menjivar MD Work Phone: [facility] 08-11-2024 13:57-0400 Body temperature 98 [degF] Dr. Kwabena Menjivar MD Work Phone: [facility] 08-11-2024 09:03-0400 Body height 172.[address] Kwabena Menjivar MD Work Phone: [facility] 08-11-2024 09:03-0400 Body mass index (BMI) [Ratio] 24 kg/m2 Dr. Kwabena Menjivar MD Work Phone: [facility] 08-11-2024 09:03-0400 Body weight 71.[address] Kwabena Menjivar MD Work Phone: [facility] 08-09-2024 08:00-0400 Body temperature 97.9 [degF] Dr. Kwabena Menjivar MD Work Phone: [facility] 08-09-2024 08:00-0400 Diastolic blood pressure 63 mm[Hg] Dr. Kwabena Menjivar MD Work Phone: [facility] 08-09-2024 08:00-0400 Heart rate 73 /min Dr. Kwabena Menjivar MD Work Phone: [facility] 08-09-2024 08:00-0400 Respiratory rate 18 /min Dr. Kwabena Menjivar MD Work Phone: [facility] 08-09-2024 08:00-0400 SaO2% (BldA) [Mass fraction] 95 % Dr. Kwabena Menjivar MD Work Phone: 4(167)207-741722 [place] [address] 08-09-2024 08:00-0400 Systolic blood pressure 108 mm[Hg] Dr. Kwabena Menjivar MD Work Phone: [facility] 08-06-2024 10:33-0400 Body height 172.[address] Kwabena Menjivar MD Work Phone: 8(208)107-720522 [place] [address] 08-06-2024 10:33-0400 Body weight 71.[address] Kwabena Menjivar MD Work Phone: 9(170)787-619022 [place] [address] 08-05-2024 16:32-0400 Body mass index (BMI) [Ratio] 24 kg/m2 Dr. Kwabena Menjivar MD Work Phone: [facility] 08-05-2024 15:59-0400 Body temperature 97.9 [degF] Dr. Kwabena Menjivar MD Work Phone: [facility] 08-05-2024 15:59-0400 Diastolic blood pressure 74 mm[Hg] Dr. Kwabena Menjivar MD Work Phone: [facility] 08-05-2024 15:59-0400 Heart rate 75 /min Dr. Kwabena Menjivar MD Work Phone: [facility] 08-05-2024 15:59-0400 Respiratory rate 16 /min Dr. Kwabena Menjivar MD Work Phone: 1(677)171-172222 [place] [address] 08-05-2024 15:59-0400 SaO2% (BldA) [Mass fraction] 98 % Dr. Kwabena Menjivar MD Work Phone: 0(536)968-158522 [place] [address] 08-05-2024 15:59-0400 Systolic blood pressure 108 mm[Hg] Dr. Kwabena Menjivar MD Work Phone: 8(043)682-447657 [place] [address] 08-05-2024 12:43-0400 Body mass index (BMI) [Ratio] 24.7 kg/m2 Dr. Kwabena Menjivar MD Work Phone: 4(139)455-830957 [place] [address] 08-05-2024 12:43-0400 Body weight [address] Kwabena Menjivar MD Work Phone: 6(959)000-867757 [place] [address] 08-05-2024 11:33-0400 Body height 172.[address] Kwabena Menjivar MD Work Phone: 4(058)668-583157 [place] [address] 07-27-2024 17:38-0400 Body height 172.[address] Kwabena Menjivar MD Work Phone: 2(284)287-642357 [place] [address] 05-25-2024 13:01-0400 Body height 172.[address] Kwabena Menjivar MD Work Phone: 6(966)703-062057 [place] [address] 05-25-2024 13:01-0400 Body mass index (BMI) [Ratio] 23.1 kg/m2 Dr. Kwabena Menjivar MD Work Phone: 1(141)307-495222 [place] [address] 05-25-2024 13:01-0400 Body weight 68.[address] Kwabena Menjivar MD Work Phone: 3(385)831-800857 [place] [address] 05-25-2024 13:01-0400 Diastolic blood pressure 52 mm[Hg] Dr. Kwabena Menjivar MD Work Phone: 3(897)001-242257 [place] [address] 05-25-2024 13:01-0400 Heart rate 73 /min Dr. Kwabena Menjivar MD Work Phone: 5(565)512-552557 [place] [address] 05-25-2024 13:01-0400 Respiratory rate 16 /min Dr. Kwabena Menjivar MD Work Phone: [facility] 05-25-2024 13:01-0400 SaO2% (BldA) [Mass fraction] 96 % Dr. Kwabena Menjivar MD Work Phone: [facility] 05-25-2024 13:01-0400 Systolic blood pressure 82 mm[Hg] Dr. Kwabena Menjivar MD Work Phone: [facility] 05-20-2024 09:20-0400 Diastolic blood pressure 67 mm[Hg] Dr. Kwabena Menjivar MD Work Phone: 0(728)126-166057 [place] [address] 05-20-2024 09:20-0400 Heart rate 59 /min Dr. Kwabena Menjivar MD Work Phone: 9(031)043-072957 [place] [address] 05-20-2024 09:20-0400 Systolic blood pressure 136 mm[Hg] Dr. Kwabena Menjivar MD Work Phone: 5(517)149-151522 [place] [address] 05-20-2024 06:00-0400 Body mass index (BMI) [Ratio] 24.3 kg/m2 Dr. Kwabena Menjivar MD Work Phone: 7(304)349-337457 [place] [address] 05-20-2024 06:00-0400 Body temperature 97.2 [degF] Dr. Kwabena Menjivar MD Work Phone: 2(697)018-936357 [place] [address] 05-20-2024 06:00-0400 Body weight [address] Kwabena Menjivar MD Work Phone: [facility] 05-20-2024 06:00-0400 Respiratory rate 16 /min Dr. Kwabena Menjivar MD Work Phone: 1(068)877-592857 [place] [address] 05-20-2024 06:00-0400 SaO2% (BldA) [Mass fraction] 97 % Dr. Kwabena Menjivar MD Work Phone: [facility] 05-12-2024 08:43-0400 Body height [address] Kwabena Menjivar MD Work Phone: 5(334)079-898822 [place] [address] 04-27-2024 14:23-0400 Body temperature 97.8 [degF] Dr. Kwabena Menjivar MD Work Phone: [facility] 04-27-2024 14:23-0400 Diastolic blood pressure 64 mm[Hg] Dr. Kwabena Menjivar MD Work Phone: [facility] 04-27-2024 14:23-0400 Heart rate 65 /min Dr. Kwabena Menjivar MD Work Phone: 6(656)710-020973 [address] 04-27-2024 14:23-0400 Respiratory rate 18 /min Dr. Kwabena Menjivar MD Work Phone: 4(257)879-609273 [address] 04-27-2024 14:23-0400 SaO2% (BldA) [Mass fraction] 92 % Dr. Kwabena Menjivar MD Work Phone: 1(218)288-363157 [place] [address] 04-27-2024 14:23-0400 Systolic blood pressure 126 mm[Hg] Dr. Kwabena Menjivar MD Work Phone: 4(783)162-025922 [place] [address] 04-26-2024 18:24-0400 Inhaled oxygen flow rate 3 L/min Dr. Kwabena Menjivar MD Work Phone: 1(346)335-101622 [place] [address] 04-26-2024 15:54-0400 Body height 172.[address] Kwabena Menjivar MD Work Phone: 8(839)379-771473 [address] 04-26-2024 15:54-0400 Body mass index (BMI) [Ratio] 25.3 kg/m2 Dr. Kwabena Menjivar MD Work Phone: 0(859)575-808722 [place] [address] 04-26-2024 15:54-0400 Body weight 75.[address] Kwabena Menjivar MD Work Phone: 3(622)567-177573 [address] 04-19-2024 13:05-0400 Body temperature 97.8 [degF] Dr. Kwabena Menjivar MD Work Phone: 8(116)909-172773 [address] 04-19-2024 13:05-0400 Diastolic blood pressure 75 mm[Hg] Dr. Kwabena Menjivar MD Work Phone: [facility] 04-19-2024 13:05-0400 Heart rate 65 /min Dr. Kwabena Menjivar MD Work Phone: [facility] 04-19-2024 13:05-0400 Respiratory rate 16 /min Dr. Kwabena Menjivar MD Work Phone: 9(472)826-267422 [place] [address] 04-19-2024 13:05-0400 SaO2% (BldA) [Mass fraction] 99 % Dr. Kwabena Menjivar MD Work Phone: 2(043)724-191022 [place] [address] 04-19-2024 13:05-0400 Systolic blood pressure 133 mm[Hg] Dr. Kwabena Menjivar MD Work Phone: 5(049)244-763657 [place] [address] 04-19-2024 10:47-0400 Body height 172.[address] Kwabena Menjivar MD Work Phone: 5(455)864-367722 [place] [address] 04-19-2024 10:47-0400 Body mass index (BMI) [Ratio] 23.9 kg/m2 Dr. Kwabena Menjivar MD Work Phone: 8(732)015-442373 [address] 04-19-2024 10:47-0400 Body weight 71.[address] Kwabena Menjivar MD Work Phone: 7(608)515-544322 [place] [address] 02-26-2024 12:31-0500 Body temperature 98.6 [degF] Dr. Kwabena Menjivar MD Work Phone: 7(391)553-138322 [place] [address] 02-26-2024 12:31-0500 Diastolic blood pressure 85 mm[Hg] Dr. Kwabena Menjivar MD Work Phone: 7(981)263-656022 [place] [address] 02-26-2024 12:31-0500 Heart rate 62 /min Dr. Kwabena Menjivar MD Work Phone: 9(897)720-813557 [place] [address] 02-26-2024 12:31-0500 Respiratory rate 16 /min Dr. Kwabena Menjivar MD Work Phone: [facility] 02-26-2024 12:31-0500 SaO2% (BldA) [Mass fraction] 99 % Dr. Kwabena Menjivar MD Work Phone: [facility] 02-26-2024 12:31-0500 Systolic blood pressure 164 mm[Hg] Dr. Kwabena Menjivar MD Work Phone: [facility] 02-26-2024 09:48-0500 Body mass index (BMI) [Ratio] 25.8 kg/m2 Dr. Kwabena Menjivar MD Work Phone: [facility] 02-26-2024 09:48-0500 Body weight 77.[address] Kwabena Menjivar MD Work Phone: [facility] Encounters Encounter Date Encounter Type Care Provider Facility Start: 10-18-2024 Evaluation and management of inpatient Dr. Kwabena Menjivar MD Work Phone: -Progressive Care Unit Start: 10-18-2024 Dr. Jacoby Heath DO -Progressive Care Unit Work Phone: Start: 09-04-2024 ambulatory Kwabena Fuller lity:[facility] Start: 09-04-2024 Keven Etienne MD - [facility] Nuno Start: 08-29-2024 End: 08-29-[address] Kwabena Menjivar MD Work Phone: -[facility] Start: 08-29-2024 End: 08-29-2024 Dr. Keven Etienne MD -[facility] Work Phone: Start: 08-17-2024 ambulatory Kwabena Fuller lity:[facility] Start: 08-14-2024 End: 08-14-[address] Kwabena Menjivar MD Work Phone: -[facility] Start: 08-14-2024 End: 08-14-2024 Keven Etienne MD -WILMAN Nuno Start: 08-11-2024 End: 08-11-2024 Dr. Kwabena Menjivar MD Work Phone: -Emergency Department Work Phone: Start: 08-11-2024 End: 08-11-2024 Emergency department patient visit Dr. Kwabena Menjivar MD Work Phone: -Emergency Department Start: 08-09-2024 Dr. Jacoby Mendoza MD -[facility] Work Phone: Start: 08-08-2024 Dr. Jacoby Mendoza MD - [facility] Work Phone: Start: 08-06-2024 Dr. Keanu escamilla DO -[place] [facility] Work Phone: Start: 08-06-2024 ambulatory [...] 3 Start: 08-05-2024 Dr. Yu Bradley MD -[facility] Work Phone: Start: 08-03-2024 End: 08-03-2024 Dr. David Granados MD -[facility] Start: 08-03-2024 End: 08-03-[address] Kwabena Menjivar MD Work Phone: [facility] Work Phone: Start: 07-20-2024 End: 07-20-[address] Kwabena Menjivar MD Work Phone: [facility] Work Phone: Start: 07-20-2024 End: 07-20-2024 Dr. Kwabena Menjivar MD -[facility] Start: 07-20-2024 End: 07-20-2024 ambulatory Kwabena Menjivar Facility:[facility] Start: 07-11-2024 ambulatory Keven Etienne OLS Fa cility:[facility] Start: 07-11-2024 Keven AWAD L - Yaakov Start: 07-04-2024 ambulatory Edwarfrannyjuan alberto Etienne OLS Fa cility:[facility] Start: 07-04-2024 Keven Nuno Start: 06-27-2024 ambulatory Kwabena Menjivar Faci lity:[facility] Start: 06-26-2024 ambulatory Edwarfrannyjuan alberto Etienne OLS Fa cility:[facility] Start: 06-26-2024 Keven [place] Renuka - Yaakov Start: 06-21-2024 End: 06-21-[address] Kwabena Menjivar MD Work Phone: [facility] Start: 06-21-2024 End: 06-21-2024 Angelika Nowak [facility]UNICATION[facility] Work Phone: Start: 06-19-2024 ambulatory Keven Etienne OLS Fa cility:[facility] Start: 06-19-2024 Keven [place] Renuka - Yaakov Start: 06-12-2024 End: 06-12-[address] Kwabena Menjivar MD Work Phone: [facility] Start: 06-12-2024 End: 06-12-2024 Keven MontanaRenuka Nuno Start: 06-05-2024 ambulatory Keven KIRKPATRICK Fa cility:[facility] Start: 06-05-2024 Keven [place] Renuka Nuno Start: 06-01-2024 End: 06-01-2024 Dr. Ciro Diego MD -[facility] Work Phone: Start: 06-01-2024 End: 06-01-2024 ambulatory Ciro Diego Facility:[facility] Start: 05-30-2024 End: 05-30-[address] Kwabena Menjivar MD Work Phone: [facility] Work Phone: Start: 05-30-2024 End: 05-30-2024 Angelika Nowak NP-C -[facility] Work Phone: Start: 05-29-2024 ambulatory Keven Etienne OLS Fa cility:[facility] Start: 05-29-2024 Registered Referred Keven Etienne MD -[facility] N[facility] Start: 05-29-2024 Keven Etienne MD - [place] Yaakov Start: 05-25-2024 End: 05-25-2024 Patient encounter procedure Sonia Isbell NP-C -Radiology, [facility] Work Phone: Start: 05-25-2024 End: 05-25-[address] Kwabena Menjivar MD Work Phone: [facility] Work Phone: Start: 05-25-2024 End: 05-25-2024 Sonia Isbell CHIEF COMMUNICATIONS OFFICER-C -Radiology [facility] Work Phone: Start: 05-25-2024 End: 05-25-2024 Patient encounter procedure Sonia Isbell NP-C -[facility] Work Phone: Start: 05-25-2024 End: 05-25-2024 Sonia Isbell CHIEF COMMUNICATIONS OFFICER-C -[facility] Work Phone: Start: 05-25-2024 End: 05-25-2024 ambulatory Sonia Isbell Facility:[facility] Start: 05-25-2024 End: 05-25-2024 ambulatory Sonia Isbell Facility:[facility] Start: 05-23-2024 End: 05-23-[address] Kwabena Menjivar MD Work Phone: [facility] Work Phone: Start: 05-23-2024 End: 05-23-2024 Dr. Keven Etienne MD -[facility] Work Phone: Start: 05-22-2024 End: 05-22-[address] Kwabena Menjivar MD Work Phone: [facility] Work Phone: Start: 05-22-2024 Registered Referred Keven [place]Renuka Nuno Start: 05-22-2024 End: 05-22-2024 Keven Nuno Start: 05-11-2024 Non-patient / Non-visit Dr. Ciro Diego MD -[facility] Start: 05-11-2024 Dr. Ciro Diego MD -[facility] Start: 05-09-2024 Non-patient / Non-visit Dr. Corazon Wright DO [facility] Work Phone: Start: 05-09-2024 Dr. Corazon Wright [facility] Work Phone: Start: 05-08-2024 Non-patient / Non-visit Dr. Corazon Wright DO [facility] Work Phone: Start: 05-08-2024 Dr. Corazon Wright [facility] Work Phone: Start: 05-05-2024 Non-patient / Non-visit Dr. Corazon Wright DO [facility] Work Phone: Start: 05-05-2024 Dr. Corazon Wright [facility] Work Phone: Start: 05-03-2024 Non-patient / Non-[facility] Work Phone: Start: 05-03-2024 Dr. Corazon Wright [facility] Work Phone: Start: 05-02-2024 Non-patient / Non-visit [facility]. Coraz[facility] Work Phone: Start: 05-02-2024 Dr. Corazon Wright [facility] Work Phone: Start: 05-01-2024 Non-patient / Non-visit Dr. Corazon Wright [facility] Work Phone: Start: 05-01-2024 Dr. Corazon Wright [facility] Work Phone: Start: 04-30-2024 End: 04-30-2024 ambulatory David Granados Facility:[facility] Start: 04-30-2024 End: 04-30-2024 Non-patient / Non-visit Dr. David Granados [facility] Work Phone: Start: 04-30-2024 End: 04-30-2024 Dr. David Granados [facility] Work Phone: Start: 04-28-2024 Non-patient / Non-visit Dr. Corazon Wright [facility] Work Phone: Start: 04-28-2024 Dr. Corazon Wright [facility] Work Phone: Start: 04-27-2024 [facility] Start: 04-27-2024 [facility] Start: 04-27-2024 ambulatory Kwabena Fuller lity:[facility] Start: 04-27-2024 End: 05-20-2024 Evaluation and management of inpatient Dr. Corazon Wright -Rehab Unit Work Phone: Start: 04-27-2024 End: 05-20-2024 Dr. Corazon Wright -Rehab Unit Work Phone: Start: 04-27-2024 Non-patient / Non-visit Dr. Harish Baxter [facility] Work Phone: Start: 04-27[facility]20[facility] Start: 04-26-2024 Non-patient / Non-visit Dr. Harish Baxter MD [facility] Work Phone: Start: 04-26-2024 Dr. Harish Baxter MD [facility] Work Phone: Start: 04-26-2024 Non-patient / Non-visit Dr. Ciro Diego MD [facility] Start: 04-26-2024 Dr. Ciro Diego MD [facility] Start: 04-25-2024 Non-patient / Non-visit Dr. Harish Baxter MD [facility] Work Phone: Start: 04-25-2024 Dr. Harish Nicolas [facility] Work Phone: Start: 04-24-2024 Non-patient / Non-visit Dr. Harish Baxter MD [facility] Work Phone: Start: 04-24-2024 Dr. Harish Baxter MD [facility] Work Phone: Start: 04-24-2024 End: 04-24-2024 ambulatory David Granados Facility:[facility] Start: 04-24-2024 End: 04-24-2024 Non-patient / Non-visit Dr. David Granados MD [facility] Work Phone: Start: 04-24-2024 End: 04-24-2024 Dr. David Granados MD [facility] Work Phone: Start: 04-23-2024 Non-patient / Non-visit Dr. Keanu Alfred DO [facility] Work Phone: Start: 04-23-2024 Dr. Keanu Alfred [facility] Work Phone: Start: 04-22-2024 Non-patient / Non-visit Dr. Keanu Alfred [facility] Work Phone: Start: 04-22-2024 Dr. Keanu CAMACHOWo [facility] Work Phone: Start: 04-21-2024 Non-patient / Non-visit Dr. Ciro Diego MD -[facility] Start: 04-21-2024 Dr. Ciro Diego MD -[facility] Start: 04-21-2024 ambulatory Kwabena Fuller lity:[facility] Start: 04-21-2024 Non-patient / Non-visit Dr. Keanu Alfred DO [facility] Work Phone: Start: 04-21-2024 Dr. Keanu CAMACHO [facility] Work Phone: Start: 04-20-2024 ambulatory Yas Godinez Facility:[facility] Start: 04-20-2024 End: 04-27-2024 Evaluation and management of inpatient Dr. Harish Baxter MD -Progressive Care Unit Work Phone: Start: 04-20-2024 End: 04-27-2024 Dr. Harish Baxter MD -Progressive Care U nit Work Phone: Start: 04-20-2024 Non-patient / Non-visit Dr. Keanu Alfred DO [facility] Work Phone: Start: 04-20-2024 Dr. Keanu CAMACHO [facility] Work Phone: Start: 04-19-2024 ambulatory Kwabena Fuller lity:[facility] Start: 04-19-2024 Evaluation and management of inpatient Dr. Keanu Alfred DO -Progressive Care Unit Work Phone: Start: 04-19-2024 Non-patient / Non-visit Dr. Danette Sargent MD -[facility] Start: 04-19-[address] Akhil Menjivar MD Work Phone: [facility] Work Phone: Start: 04-19-2024 Dr. Danette Sargent MD -[facility] Start: 03-08-2024 End: 03-08-[address] David Granados MD -[facility] Start: 03-08-2024 End: 03-08-2024 ambulatory Kwabena Menjivar Facility:[facility] Start: 02-26-2024 End: 02-26-2024 Emergency department patient visit Dr. Asher Flores MD -Emergency Department Work Phone: Start: 10-22-2022 End: 10-22-[address] [facility] Work Phone: Start: 10-22-2022 End: 10-22-20[address] [facility], [place] Work Phone: Start: 10-14-2022 End: 10-14-[address] [facility] Work Phone: Start: 10-14-2022 End: 10-14-[address] [facility]-Physical Therapy Work Phone: Start: 08-24-2022 End: 08-24-[address] [facility] Work Phone: Start: 08-24-2022 End: 08-24-2022 Patient encounter [address] [facility]-Radiology, [place] Work Phone: Start: 09-14-2016 End: 09-15-2016 Emergency department patient visit BAO CERVANTES Facility:B Start: 09-12-2016 End: 09-12-2016 Emergency department patient visit JORGE L CecilioEvette CARTER Facility:[facility] Procedures Date Procedure Procedure Detail Performing Clinician Start: 10-18-2024 Measurement of occul t blood in stool specimen using immunoassay Dr. Kwabena Menjivar MD Work Phone: Start: 10-18-2024 Urine microscopy: red cells Dr. Kwabena Menjivar MD Work Phone: Start: 10-18-2024 Urnls dip stick/tabl et reagent auto microscopy Dr. Kwabena Menjivar MD Work Phone: Start: 10-18-2024 Blood count smear mc rscp w/mnl difrntl wbc count Dr. Kwabena Menjivar MD Work Phone: Start: 10-18-[address] Kwabena Menjivar MD Work Phone: Start: 10-18-2024 Mean corpuscular hem oglobin concentration determination Dr. Kwabena Menjivar MD Work Phone: Start: 10-18-2024 Nucleated red blood cell count procedure Dr. Kwabena Menjivar MD Work Phone: Start: 10-18-2024 Platelet mean volume determination Dr. Kwabena Menjivar MD Work Phone: Start: 09-04-2024 Blood count smear mc rscp [...] Phone: Start: 08-06-[address] Kwabena Menjivar MD Work Phone: Start: 08-06-2024 Mean [...] Start: 05-22-2024 Platelet mean volume determination Dr. Kwaebna Menjivar MD Work Phone: Start: 05-11-2024 Estimated [...] Treatment Date Care Activity Detail Author Start: 10-18-2024 Referral to chassis driver [facility] Start: 10-18-2024 Urinalysis complete panel - Urine [facility] Start: 10-18-2024 Verification routine [facility] Start: 10-18-2024 Admission procedure [facility] Start: 10-18-2024 Hospital admission, emergency, from emergency room, medical nature [facility] Start: 08-11-2024 [facility] Start: 08-09-2024 Patient discharge [facility] Start: 08-06-2024 Admission procedure [facility] Start: 08-05-2024 Following clinical pathway protocol [facility] Start: 08-05-2024 Assessment of risk o f venous thromboembolism [facility] Start: 08-05-2024 Insertion of cathete r into peripheral vein [facility] Start: 08-05-2024 Providing care accor ding to standard [facility] Start: 08-05-2024 Provision of activity privileges [facility] Start: 08-05-2024 Referral to occupational therapist [facility] Start: 08-05-2024 Referral to service [facility] Start: 08-05-2024 Speech therapy assessment [facility] Start: 08-05-2024 [facility] Start: 08-05-2024 Verification routine [facility] Start: 08-05-2024 Admission procedure [facility] Start: 08-05-2024 Hospital admission, emergency, from emergency room, medical nature [facility] Start: 08-05-2024 Referral to service [facility] Start: 08-05-2024 End: 08-05-[address] [facility] Start: 08-05-2024 Patient referral to dietitian [facility] Start: 08-03-2024 X-ray of cervical spine [facility] Start: 08-03-2024 XR Cervical spine 2 or [address] [facility] Start: 05-25-2024 Patient referral [facility] Work Phone: Start: 05-20-2024 Patient discharge [facility] Start: 05-15-2024 [facility] Start: 05-12-2024 [facility] Start: 05-10-2024 [facility] Start: 05-09-2024 [facility] Start: 05-09-2024 End: 05-09-[address] [facility] Start: 05-08-2024 Introduction of urinary catheter [facility] Start: 05-08-2024 Urinary bladder training [facility] Start: 05-02-2024 [facility] Start: 05-01-2024 [facility] Start: 04-29-2024 [facility] Start: 04-28-2024 Application of inter mittent pneumatic compression device [facility] Start: 04-27-2024 Speech therapy assessment [facility] Start: 04-27-2024 Scheduling [facility] Start: 04-27-2024 Wound care [facility] Start: 04-27-2024 Referral to service [facility] Start: 04-27-2024 Admission procedure [facility] Start: 04-27-2024 Measuring intake and output [facility] Start: 04-27-2024 Patient referral to dietitian [facility] Start: 04-27-2024 Vital signs measurements [facility] Start: 04-27-2024 End: 04-27-[address] [facility] Start: 04-27-2024 Referral to occupational therapist [facility] Start: 04-27-2024 Catheterization of vein [facility] Start: 04-27-2024 Patient discharge [facility] Start: 04-27-2024 Speech therapy assessment [facility] Start: 04-26-2024 [facility] Start: 04-26-2024 Application of device [facility] Start: 04-26-2024 Referral to occupational therapist [facility] Start: 04-26-2024 Assessment of risk o f venous thromboembolism [facility] Start: 04-26-2024 Following clinical pathway protocol [facility] Start: 04-26-2024 Introduction of urinary catheter [facility] Start: 04-26-2024 Measuring intake and output [facility] Start: 04-26-[address] [facility] Start: 04-26-[address] [facility] Start: 04-26-2024 Patient education [facility] Start: 04-26-2024 Provision of activity privileges [facility] Start: 04-26-2024 Referral to service [facility] Start: 04-26-2024 Taking patient vital signs [facility] Start: 04-26-2024 [facility] Start: 04-24-2024 Application of inter mittent pneumatic compression device [facility] Start: 04-20-2024 Admission procedure [facility] Start: 04-20-2024 Consultation [facility] Start: 04-20-2024 [facility] Start: 04-19-2024 Following clinical pathway protocol [facility] Start: 04-19-2024 Assessment of risk o f venous thromboembolism [facility] Start: 04-19-2024 Consultation [facility] Start: 04-19-2024 Insertion of cathete r into peripheral vein [facility] Start: 04-19-2024 Measuring intake and output [facility] Start: 04-19-2024 Providing care accor ding to standard [facility] Start: 04-19-2024 Provision of activity privileges [facility] Start: 04-19-2024 Referral to occupational therapist [facility] Start: 04-19-2024 Referral to service [facility] Start: 04-19-2024 [facility] Start: 04-19-2024 Hospital admission, emergency, from emergency room, medical nature [facility] Start: 04-19-2024 Admission procedure [facility] Start: 04-19-2024 [facility] Start: 04-19-[address] [facility] Start: 04-19-2024 End: 04-19-[address] [facility] Start: 04-19-2024 Patient referral to dietitian [facility] Start: 04-19-2024 [facility] Start: 02-26-2024 [facility] Start: 10-22-2022 [facility] Folate [Moles/volume ] in Serum or Plasma [facility] Magnesium measurement [facility] Mitotic spindle appa ratus Ab [Titer] in Serum or Plasma [facility] Neuronal nuclear Ab [Presence] in Serum by Immunofluorescence [facility] Nuclear Ab [Titer] i n Serum by Immunofluorescence [facility] Patient Education [facility] Work Phone: Patient referral [facility] Work Phone: Serum HEAVEN pattern [facility] Speckled nuclear Ab pattern [Titer] in Serum [facility] Troponin T.cardiac [ Mass/volume] in Serum or Plasma by High sensitivity method [facility] Troponin T.cardiac [ Mass/volume] in Serum or Plasma by High sensitivity method [facility] Troponin T.cardiac [ Mass/volume] in Serum or Plasma by High sensitivity method [facility] Payers Date Payer Category Payer Self-pay [id number] 2024 Private Health Insurance [id number] 2016 Medicare [id number] 2006 Medicare [id number] Unknown [id number] 2.16.8 40.1.481843.3.579.2.462 Unknown [id number] 2.16.8 40.1.507358.3.579.2.462 Unknown [id number] 2.16.8 40.1.104041.3.579.2.462 Unknown [id number] 2.16.8 40.1.985827.3.579.2.462 Unknown [id number] 2.16.8 40.1.996682.3.579.2.462 Unknown [id number] 2.16.8 40.1.431465.3.579.2.462 Unknown [id number] 2.16.8 40.1.998325.3.579.2.462 Unknown [id number] 2.16.8 40.1.137126.3.579.2.462 Unknown [id number] 2.16.8 40.1.761777.3.579.2.462 Unknown [id number] 2.16.8 40.1.612683.3.579.2.462 Unknown [id number] 2.16.8 40.1.831002.3.579.2.462 Unknown [id number] 2.16.8 40.1.171471.3.579.2.462 Unknown [id number] 2.16.8 40.1.067983.3.579.2.462 Unknown [id number] 2.16.8 40.1.797718.3.579.2.462 Unknown [id number] 2.16.8 40.1.667245.3.579.2.462 Unknown [id number] 2.16.8 40.1.733307.3.579.2.462 Unknown [id number] 2.16.8 40.1.291112.3.579.2.462 Unknown [id number] 2.16.8 40.1.443060.3.579.2.462 Unknown [id number] 2.16.8 40.1.125948.3.579.2.462 Unknown [id number] 2.16.8 40.1.700750.3.579.2.462 Unknown [id number] 2.16.8 40.1.908140.3.579.2.462 Unknown [id number] 2.16.8 40.1.584435.3.579.2.462 Unknown [id number] 2.16.8 40.1.971138.3.579.2.462 Unknown [id number] 2.16.8 40.1.914468.3.579.2.462 Unknown [id number] 2.16.8 40.1.737007.3.579.2.462 Unknown [id number] 2.16.8 40.1.623255.3.579.2.462 Unknown [id number] 2.16.8 40.1.661181.3.579.2.462 Unknown [id number] 2.16.8 40.1.053785.3.579.2.462 Unknown [id number] 2.16.8 40.1.647495.3.579.2.462 Unknown [id number] 2.16.8 40.1.830025.3.579.2.462 Unknown [id number] 2.16.8 40.1.242252.3.579.2.462 Unknown [id number] 2.16.8 40.1.889095.3.579.2.462 Unknown [id number] 2.16.8 40.1.737942.3.579.2.462 Unknown [id number] 2.16.8 40.1.470150.3.579.2.462 Unknown [id number] 2.16.8 40.1.883429.3.579.2.462 Unknown [id number] 2.16.8 40.1.500845.3.579.2.462 Unknown [id number] 2.16.8 40.1.614735.3.579.2.462 Unknown [id number] 2.16.8 40.1.768455.3.579.2.462 Unknown [id number] 2.16.8 40.1.633631.3.579.2.462 Unknown [id number] 2.16.8 40.1.506972.3.579.2.462 Unknown [id number] 2.16.8 40.1.663628.3.579.2.462 Unknown [id number] 2.16.8 40.1.917596.3.579.2.462 Unknown [id number] 2.16.8 40.1.683342.3.579.2.462 Unknown [id number] 2.16.8 40.1.806798.3.579.2.462 Unknown [id number] 2.16.8 40.1.111781.3.579.2.462 Unknown [id number] 2.16.8 40.1.513741.3.579.2.462 Unknown [id number] 2.16.8 40.1.754728.3.579.2.462 Unknown [id number] 2.16.8 40.1.504343.3.579.2.462 Unknown [id number] 2.16.8 40.1.981873.3.579.2.462 Unknown [id number] 2.16.8 40.1.716740.3.579.2.462 Unknown [id number] 2.16.8 40.1.985658.3.579.2.462 Unknown [id number] 2.16.8 40.1.019938.3.579.2.462 Unknown [id number] 2.16.8 40.1.457212.3.579.2.462 Unknown [id number] 2.16.8 40.1.796669.3.579.2.462 Unknown [id number] 2.16.8 40.1.253043.3.579.2.462 Unknown [id number] 2.16.8 40.1.305282.3.579.2.462 Unknown [id number] 2.16.8 40.1.524270.3.579.2.462 Unknown [id number] 2.16.8 40.1.787931.3.579.2.462 Unknown [id number] 2.16.8 40.1.063075.3.579.2.462 Unknown [id number] 2.16.8 40.1.658530.3.579.2.462 Unknown [id number] 2.16.8 40.1.381573.3.579.2.462 Unknown [id number] 2.16.8 40.1.850223.3.579.2.462 Unknown [id number] 2.16.8 40.1.892261.3.579.2.462 Unknown [id number] 2.16.8 40.1.470116.3.579.2.462 Social History Date Type Detail Facility Start[facility]28[facility] Start: 1940 Sex Assigned At Male [facility] Start: 04-19-2024 End: 10-17-2024 Tobacco smoking status NHIS Ex-smoker (finding) [facility] Start: 04-19-2024 End: 05-31-2024 Sex Male (finding) [facility] Medical Equipment Procedure Code Equipment Code [...] Discectomy, spine, cervical, anterior approach, with fusion ()[id number] FDA Start: 04-26-2024 Discectomy, spine, cervical, anterior [...] Assessment Result Facility 08-09-2024 Functional status Chair [facility] Work Phone: 05-20-2024 Functional status With Assist of 1 [facility] Work Phone: 05-18-2024 Functional status Chair;Bedrest [facility] Work Phone: 04-27-2024 Functional status Bedside Commode;Back to bed [facility] Work Phone: Mental Status Date Assessment Result Facility 10-17-2024 Cognitive function Awake;Alert;A ppropriate;Fol lows Commands [facility] Work Phone: 08-11-2024 Cognitive function Awake;Alert;A ppropriate;Fol lows Commands [facility] Work Phone: 08-09-2024 Cognitive function Voice/Name [facility] Work Phone: 08-05-2024 Cognitive function Awake;Alert;A ppropriate;Fol lows Commands [facility] Work Phone: 05-20-2024 Cognitive function Voice/Name [facility] Work Phone: 04-27-2024 Cognitive function Awake;Alert;A ppropriate;Fol lows Commands [facility] Work Phone: 04-27-2024 Cognitive function Voice/Name [facility] Work Phone: 04-19-2024 Cognitive function Voice/Name [facility] Work Phone: Clinical Notes 10-14-2022 to 08-11-2024 Note Date & Type Note Facility 08-11-2024 Radiology Diagnostic study note [facility] 08-09-2024 Consult note Note Date/Time August 09, 2024 9:31a m [facility] Medical Records Department [address] [place] [address] Counseling Note - Pharmacy 08/09/24929 MR#: [id number] Acct: [id number] Name: YAS ROSA Rep #:[id number] : 1940 83 From: Juju Elder PCP: Dr. Kwabena Menjivar MD Status :ADM IN Location: [address] Med Reconciliation Pharmacy Service has performed discharge medication reconciliation for this patient. D/C to [place] The patient's discharge medication list was reviewed [...] QHS PRN PRN Insomnia #0 tabs 08/09/24 08/09/24 0931 <Electronically signed by Juju Elder> Date _ Juju Voigner Signature (if applicable): Date CC: ~ Signed [facility] Work Phone: 1(944) 676-715607-02-2025 Discharge summary Author Jacoby Mendoza [facility] Note Date/Time August 09, 2024 8:28a m [facility] Medical Records Department [address] [place] [address] Discharge Summary 08/09/24 0721 MR#: [id number] Acct: [id number] Name: YAS ROSA Rep #:[id number] : 1940 83 From: Jacoby Mendoza MD PCP: Dr. Kwabena Menjivar MD Status :ADM IN Location: [facility] BE713-9 Providers Date of Admission: 08/06/24 Date of [...] ? Requested for PT OT eval and hospital social worker to assist with discharge planning. 08/09/2024; patient [...] in before D/C Order can be placed): Halfway Facility Charges/Coding Visit Charges Inpatient E&M: 60887 Disch Hosp >30min 08/09/24 0828 <Electronically signed by Jacoby Mendoza MD> Cosigner Signature (if applicable): CC: Dr. Kwabena Menjivar MD; Dr. Jacoby Mendoza MD~ Signed [facility] Work Phone: 1(284) 121-944207-02-2025 [facility]07-01-2025 Progress note Author Jacoby Mendoza [facility] Note Date/Time August 08, 2024 11:14 am [facility] Medical Records Department [address] [facility] [place] [address] Progress Note - Hospitalist 08/08/24754 MR#: [id number] Acct: [id number] Name: YAS ROSA Rep #:[id number] : 1940 83 From: Jacoby Mendoza MD PCP: Dr. Kwabena Menjivar MD Status :ADM IN Location: [place] [address]-1 Reason for Visit Reason for Visit: Diagnoses [...] ? Requested for PT OT eval and hospital social worker to assist with discharge planning. Plan is [...] 36 Minutes Charges/Coding Visit Charges Inpatient E&M: 34791 Subs Hosp L2 08/08/24 1114 <Electronically signed by Jacoby Mendoza MD> Cosigner Signature (if applicable): CC: ~ Signed [facility] Work Phone: 1(680) 608-696006-29-2025 Progress note Author Keanu Collier [facility] Note Date/Time August 06, 2024 4:03 pm [facility] Medical Records Department [address] [place] [address] Progress Note - Hospitalist 08/06/24 6985 MR#: [id number] Acct: [id number] Name: YAS ROSA Brigido Rep #:[id number] : 1940 83 From: Keanu Collier DO PCP: Dr. Kwabena Menjivar MD Status :ADM IN Location: [facility] EN413-5 Reason for Visit Reason for Visit: Diagnoses Dizziness and giddiness (08/06/24) Weakness (08/06/24) Subjective Subjective Patient was seen and examined today, he is a very poor informant, at first he told me he had not ever been in a detention and it turns out he was in a detention from May 20 of this year to July 14 of this year. Patient had cervical fusion here at [facility]-the surgery was performed on 04/26/2024 and it was a C3-6 ACDF. Following this, the patient went to the rehab unit at [facility] on 04/28/2024 and was discharged from the rehab unit on 05/20/2024 with admission to [facility] retirement facility. Information obtained from the patient's ex- [...] % (Auto) 48.2, Lymph % (Auto) 36.2, [place]% (Auto) 10.5 H, Eos % (Auto) 4.2, [...] OT, he will need placement in a retirement facility. #2 orthostatic hypotension with periods of [...] 35 minutes Charges/Coding Visit Charges Inpatient E&M: 04524 Subs Hosp L2 08/06/24 1602 <Electronically signed by Keanu Collier DO> Cosigner Signature (if applicable): CC: ~ Signed [facility] Work Phone: 1(200) 777-439806-28-2025 History and physical note Author Yu Bradley [facility] Note Date/Time August 05, 2024 4:[address] [facility] Medical Records Department [address] [place] [address] H&P Exam - Hospitalist 08/05/24 1543 MR#: [id number] Acct: [id number] Name: YAS ROSA Rep #:[id number] : 1940 83 From: Yu Bradley MD PCP: Dr. Kwabena Menjivar MD Status :ADM IRINA Location: [facility] [id number] HPI - General General Date of Admission: 08/05/24 Date of Service: 08/05/24 Chief Complaint: Generalized weakness, lightheaded on standing HPI Narrative YAS ROSA, is a 83-year-old male history of anxiety, IBS, depression, GERD, cervical myelopathy with surgery in April presented [facility] ED 08/05/2024 with complaint of worsening [...] at bedside, patient has been home from [place] for thepast couple weeks but has had [...] fever headache. No other new acute complaints [facility] Medical History Cervical myelopathy Angiectasia of large [...] bisacodyl 10 mg rectal suppository 10 mg TN X1 PRN Con stipation #0 ea 05/18/24 [...] tabs hydrocortisone acetate 25 mg 25 mg TN QHS #12 ea 05/25 Unknown Rx rectal suppository (Anusol-HC) Allergy/AdvReac Type Severity Reaction Status Date / Time No Known Allergies Allergy Verified 08/05/24 11:37 Family History Father , at 40 YOA of an [place] Heart disease Other Hypertension Surgical History Status [...] % (Auto) 57.7, Lymph % (Auto) 31.4, [place]% (Auto) 8.2, Eos % (Auto) 2.0, Baso [...] Clarity Clear, Urine pH 7.0, Ur Specific [place] 1.010, Urine Protein Negative, Urine Glucose (UA) [...] IMPRESSION: No acute intracranial process. Reading Location: [facility] Cervical Spine CT 08/05/24 12:10 IMPRESSION: No acute cervical fracture or subluxations. Moderate multilevel degenerative changes of the cervical spine as above. Cervical ACDF spanning C3-C6 with interbody spacers. Reading Location: [facility] Assessment & Plan Assessment/Plan (1) Orthostatic lightheadedness: [...] Bradley MD Charges/Coding Visit Charges Inpatient E&M: 48834 Init Hosp L2 08/05/24 1611 <Electronically signed by Yu Bradley MD> Cosigner Signature (if applicable): CC: Dr. Kwabena Menjivar MD; Dr. Yu Bradley MD~ Signed [facility] Work Phone: 1(305) 836-228906-28-2025 Discharge summary Author Kayode Woods [facility] Note Date/Time August 05, 2024 2:50 pm [facility] Medical Records Department [address] [place] [address] Emergency Department Summary 08/05/24 MR#: [id number] Acct: [id number] Name: YAS ROSA Rep #:[id number] : 1940 83 From: Kayode Woods DO [...] stools denied any blood in [facility] History Cervical myelopathy Angiectasia of large [...] bisacodyl 10 mg rectal suppository 10 mg TN X1 PRN Con stipation #0 ea 05/18/24 [...] tabs hydrocortisone acetate 25 mg 25 mg TN QHS #12 ea 05/25 Unknown Rx rectal suppository (Anusol-HC) Allergy/AdvReac Type Severity Reaction Status Date / Time No Known Allergies Allergy Verified 08/05/24 11:37 Family History Father , at 40 YOA of an [place] Heart disease Other Hypertension Surgical History Status [...] following commands knew that he was at [facility] the year is 2024. Sensation is decreased [...] % (Auto) 57.7 Lymph % (Auto) 31.4 [place] % (Auto) 8.2 Eos % (Auto) 2.0 [...] Clarity Clear Urine pH 7.0 Ur Specific [place] 1.010 Urine Protein Negative Urine Glucose (UA) Normal Urine Ketones Negative Urine Occult Blood Negative Urine Nitrite Negative Urine Bilirubin Negative Urine Urobilinogen Normal Ur Leukocyte Esterase Negative Radiography Diagnostic Testing: Clinical Impression(s) from Imaging Studies Brain CT 08/05/24 12:10 IMPRESSION: No acute intracranial process. Reading Location: [facility] Cervical Spine CT 08/05/24 12:10 IMPRESSION: No acute cervical fracture or subluxations. Moderate multilevel degenerative changes of the cervical spine as above. Cervical ACDF spanning C3-C6 with interbody spacers. Reading Location: [facility] Discharge Plan Triage Chief Complaint: Weakness ED Provider: Kayode Woods Dx/Rx/DC Orders Clinical Impression: Orthostatic hypotension, Lightheadedness, Generalized weakness Prescriptions: No Action hydrocortisone acetate [Anusol-HC] 25 mg suppository 25 mg TN QHS Qty: 12 0RF calcium polycarbophil [FiberCon] [...] 0RF bisacodyl 10 mg Suppository 10 mg TN X1 PRN (Reason: Constipation) Qty: 0 0RF [...] MD [Primary Care Provider] - Print Language: Armenian Disposition Disposition: Acute Care Hospital [facility] What to do if you have Problems For any increased pain, shortness of breath, bleeding, nausea or vomiting, chestpain, or any unexpected problems, contact your Primary Care Provider. Call [facility] ([phone]) or report to the closest Emergency Room. Call 911 if necessary. 08/05/24 1450 <Electronically signed by Kayode Woods DO> Cosigner Signature (if applicable): CC: Dr. Kwabena Menjivar MD ~ Signed [facility] Work Phone: 1(498) 512-293006-28-2025 Radiology Diagnostic study [facility]06-28-2025 [facility] Date/Time August 05, 2024 2:50 pm [facility] Medical Records Department [address] [place] [address] Emergency Department Summary 08/05/24 MR#: [id number] Acct: [id number] Name: YAS ROSA Rep #:[id number] : 1940 83 From: Kayode Woods DO [...] stools denied any blood in his stool [facility] Medical History Cervical myelopathy Angiectasia of large [...] bisacodyl 10 mg rectal suppository 10 mg TN X1 PRN Con stipation #0 ea 05/18/24 [...] tabs hydrocortisone acetate 25 mg 25 mg TN QHS #12 ea 05/25 Unknown Rx rectal suppository (Anusol-HC) Allergy/AdvReac Type Severity Reaction Status Date / Time No Known Allergies Allergy Verified 08/05/24 11:37 Family History Father , at 40 YOA of an [place] Heart disease Other Hypertension Surgical History Status [...] following commands knew that he was at [facility] the year is 2024. Sensation is decreased [...] % (Auto) 57.7 Lymph % (Auto) 31.4 [place] % (Auto) 8.2 Eos % (Auto) 2.0 [...] Clarity Clear Urine pH 7.0 Ur Specific [place] 1.010 Urine Protein Negative Urine Glucose (UA) Normal Urine Ketones Negative Urine Occult Blood Negative Urine Nitrite Negative Urine Bilirubin Negative Urine Urobilinogen Normal Ur Leukocyte Esterase Negative Radiography Diagnostic Testing: Clinical Impression(s) from Imaging Studies Brain CT 08/05/24 12:10 IMPRESSION: No acute intracranial process. Reading Location: [facility] Cervical Spine CT 08/05/24 12:10 IMPRESSION: No acute cervical fracture or subluxations. Moderate multilevel degenerative changes of the cervical spine as above. Cervical ACDF spanning C3-C6 with interbody spacers. Reading Location: [facility] Discharge Plan Triage Chief Complaint: Weakness ED Provider: Kayode Woods Dx/Rx/DC Orders Clinical Impression: Orthostatic hypotension, Lightheadedness, Generalized weakness Prescriptions: No Action hydrocortisone acetate [Anusol-HC] 25 mg suppository 25 mg TN QHS Qty: 12 0RF calcium polycarbophil [FiberCon] [...] 0RF bisacodyl 10 mg Suppository 10 mg TN X1 PRN (Reason: Constipation) Qty: 0 0RF [...] MD [Primary Care Provider] - Print Language: Armenian Disposition Disposition: Acute Care Hospital [facility] What to do if you have Problems For any increased pain, shortness of breath, bleeding, nausea or vomiting, chestpain, or any unexpected problems, contact your Primary Care Provider. Call [facility] ([phone]) or report to the closest Emergency Room. Call 911 if necessary. 08/05/24 7393 <Electronically signed by Kayode Woods DO> Cosigner Signature (if applicable): CC: Dr. Kwabena Menjivar MD ~ Signed [facility] Work Phone: [phone] Radiology Diagnostic study [facility]06-26-2025 Evaluation note* Diagnosis Onset Date Resolution Status Admit Date Status post cervical spinal fusion acute August 03, 2024 3:03pm Cervical myelopathy inactive August 03, 2024 3:03pm Generalized weakness acute August 06, 2024 1:22pm Orthostatic lightheadedness resolved August 06, 2024 1:22pm Acute prerenal azotemia acute S eptember 2024 4:05am Anemia acute October 4:05am BPPV (benign paroxysmal positional vertigo) acute October 182024 4:05am Dehydration acute October 4:05am Generalized weakness acute Oct emb2024 4:05am Leukocytosis acute October 182024 4:05am Micturition syncope acute mb2024 4:05am Orthostatic hypotension acute S eptemb2024 4:05am Poor fluid intake acute Octemb er 2024 4:05am Postural dizziness with near syncope chronic October 18, 2024 4:05am [facility] Work Phone: [phone] Radiology Diagnostic study [facility]04-17-2025 Radiology Diagnostic study note [facility] Imaging Services [address] [place], [place] [address] Abdomen Single View MR#: [id number] Acct: [id number] Name: YAS ROSA Rep #: [id number] : 1940 M 83 From: And mili Narvaez DO PCP: Dr. Kwabena Menjivar MD Status: REG CLI Study:Abdomen Single View Date of Exam: 05/25/24 Exam# [id number] Ordering Dr: Sonia Isbell CHIEF COMMUNICATIONS OFFICER-C PROCEDURE: Abdominal radiographs, two views 05/25/2024 REASON [...] concerning for developing fecal impaction. [facility] LEONIDAS Isbell; Dr. 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04-17-2025 Evaluation note* Diagnosis Onset Date Resolution [...] Orthostatic lightheadedness resolved August 06, 2024 1:22pm [facility] Work Phone: 1(172) 420-122604-10-2025 Discharge summary Author Mariano Sernaok [facility] Note Date/Time May 18, 2024 9:[address] [facility] Medical Records Department [address] [place] [address] Transfer to [facility] MR#: [id number] Acct: [id number] Name: YAS ROSA Rep #:[id number] : 1940 83 From: Mariano Chan MD PCP: Dr. Kwabena Menjivar MD Status :ADM IN Certification of patient admission REQUIRED AT TIME OF ADMISSION. I CERTIFY THAT POST-HOSPITAL ECF SERVICES ARE REQUIRED TO BE GIVEN ON AN IN-PATIENT BASIS BECAUSE OF THE ABOVE NAMED PATIENT'S NEED FOR RESIDENTIAL CARE ON A CONTINUING BASIS FOR THE CONDITION(S) FOR WHICH HE/SHE WAS RECEIVING IN-PATIENT HOSPITAL SERVICES PRIOR TO HIS/HER TRANSFER TO THE [facility]. 05/18/24 0903<Electronically signed by Mariano Chan MD> Diet Diet Order/Speech Therapy: 05/09/24 11:34 Diet: Regular - General Food consistency:: Pureed Liquid Consistency:: Woodward/Mildly Thick Type of Dietary Supplement:: Magic Cup [...] Recommendations Dietitian Recommendations/Changes: Continue regular diet per PARTS MANAGER consistency/recommendations. Continue 120ml EPHP 4x daily with medpass, prefers vanilla or strawberry. Adjust to vanilla magic cup with dinner. Will order vanilla fortified pudding with breakfast and lunch. Will monitor weight trends. 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 PARTS MANAGER informally assessed pt vocal quality through [...] sustained manner appropriately despite max cues from PARTS MANAGER. Pt. would often substitute /sh/ for /s/. Maximum Phonation of /ah/ -Sustained /ah/: average of 10.73 seconds IMPAIRED Findings indicate poor breath support and glottis sufficiency. Discharge Plan Admission Admit Date/Time: 04/27/24 15:15 Primary Reason for Your Visit: Debility. Attending Provider: Corazon Wright Primary Care Provider: Kwabena Menjivar Instructions Additional Instructions / Restrictions: Discharge to [facility] 05/20/2024, skilled. Discharge Orders/Prescriptions Prescriptions: New midodrine [...] 0RF bisacodyl 10 mg Suppository 10 mg TN X1 PRN (Reason: Constipation) Qty: 0 0RF [...] in before D/C Order can be placed): [facility] ([facility]) Dysphagia Qualifiers: Dysphagia type: pharyngeal phase Qualified Code(s): R13.13 - Dysphagia, pharyngeal phase 05/18/24 0903 <Electronically signed by Mariano Chan MD> Cosigner Signature (if applicable): CC: Dr. Kwabena Menjivar MD ~ [facility] Work Phone: 1(320) 104-791104-10-2025 Discharge summary Author [facility] Note Date/Time May 18, 2024 9:[address] [facility] Medical Records Department [address] [place] [address] Discharge Summary 05/18/24 0852 MR#: [id number] Acct: [id number] Name: YAS ROSA Rep #:[id number] : 1940 83 From: Mariano Chan MD PCP: Dr. Kwabena Menjivar MD Status :ADM IN Location: [place] [address] Providers Date of Admission: 04/27/24 Primary Care [...] bisacodyl 10 mg rectal suppository 10 mg TN X1 PRN Constipation #0 ea 05/18/24 carboxymethylcellulose [...] C-collar over the next week. Discharge to [facility] 05/20/2024, skilled. Physical Exam Const alert General [...] Discharge instructions: No Additional Instructions: Discharge to [facility] 05/20/2024, skilled. Meaningful Use Info Meaningful Use [...] Instructions Additional Instructions / Restrictions: Discharge to [facility] 05/20/2024, skilled. Discharge Orders/Prescriptions Prescriptions: New midodrine [...] 0RF bisacodyl 10 mg Suppository 10 mg TN X1 PRN (Reason: Constipation) Qty: 0 0RF [...] in before D/C Order can be placed): [facility] 05/18/24 0902 <Electronically signed by Mariano Chan MD> Cosigner Signature (if applicable): CC: Dr. Kwabena Menjivar MD; Dr. Mariano Chan MD~ Signed [facility] Work Phone: [phone]) 214-914604-10-2025 Discharge summary [facility] Medical Records Department [address] [place] [address] Transfer to [facility] MR#: [id number] Acct: [id number] Name: YAS ROSA Rep #:[id number] : 1940 83 From: Mariano Chan MD PCP: Dr. Kwabena Menjivar MD Status :ADM IN Certification of patient admission REQUIRED AT TIME OF ADMISSION. I CERTIFY THAT POST-HOSPITAL ECF SERVICES ARE REQUIRED TO BE GIVEN ON AN IN-PATIENT BASIS BECAUSE OF THE ABOVE NAMED PATIENT'S NEED FOR RESIDENTIAL CARE ON A CONTINUING BASIS FOR THE CONDITION(S) FOR WHICH HE/SHE WAS RECEIVING IN-PATIENT HOSPITAL SERVICES PRIOR TO HIS/HER TRANSFER TO THE [facility]. 05/18/24 0903 Diet Diet Order/Speech Therapy: 05/09/24 11:34 Diet: Regular - General Food consistency:: Pureed Liquid Consistency:: Woodward/Mildly Thick Type of Dietary Supplement:: Magic Cup [...] Recommendations Dietitian Recommendations/Changes: Continue regular diet per PARTS MANAGER consistency/recommendations. Continue 120ml EPHP 4x daily with medpass, prefers vanilla or strawberry. Adjust to vanilla magic cup with dinner. Will order vanilla fortified pudding with breakfast and lunch. Will monitor weight trends. 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 PARTS MANAGER informally assessed pt vocal quality through [...] sustained manner appropriately despite max cues from PARTS MANAGER. Pt. would often substitute /sh/ for /s/. Maximum Phonation of /ah/ -Sustained /ah/: average of 10.73 seconds IMPAIRED Findings indicate poor breath support and glottis sufficiency. Discharge Plan Admission Admit Date/Time: 04/27/24 15:15 Primary Reason for Your Visit: Debility. Attending Provider: Corazon Wright Primary Care Provider: Kwabena Menjivar Instructions Additional Instructions / Restrictions: Discharge to [facility] 05/20/2024, skilled. Discharge Orders/Prescriptions Prescriptions: New midodrine [...] 0RF bisacodyl 10 mg Suppository 10 mg TN X1 PRN (Reason: Constipation) Qty: 0 0RF [...] in before D/C Order can be placed): [facility] ([facility]) Dysphagia Qualifiers: Dysphagia type: pharyngeal phase Qualified Code(s): R13.13 - Dysphagia, pharyngeal phase 05/18/24 0903 Cosigner Signature (if applicable): CC: Dr. Kwabena Menjivar MD ~ [facility]04-10-2025 Discharge summary [facility] Medical Records Department [address] [place] [address] Discharge Summary 05/18/24 0852 MR#: [id number] Acct: [id number] Name: YAS ROSA Rep #:[id number] : 1940 83 From: Mariano Chan MD PCP: Dr. Kwabena Menjivar MD Status :ADM IN Location: [place] [address] Providers Date of Admission: 04/27/24 Primary Care [...] bisacodyl 10 mg rectal suppository 10 mg TN X1 PRN Constipation #0 ea 05/18/24 carboxymethylcellulose [...] C-collar over the next week. Discharge to [facility] 05/20/2024, skilled. Physical Exam Const alert General [...] Discharge instructions: No Additional Instructions: Discharge to [facility] 05/20/2024, skilled. Meaningful Use Info Meaningful Use [...] Instructions Additional Instructions / Restrictions: Discharge to [facility] 05/20/2024, skilled. Discharge Orders/Prescriptions Prescriptions: New midodrine [...] 0RF bisacodyl 10 mg Suppository 10 mg TN X1 PRN (Reason: Constipation) Qty: 0 0RF [...] Menjivar MD [Primary Care Provider] - Favio AustinDO [Med Staff - Active Staff] - 05/25/24 12:30 pm (Esophagitis/laryngitis Suspected dysmotility ) Disposition Disposition (needs filled in before D/C Order can be placed): [facility] 05/18/24 0902 Cosigner Signature (if applicable): CC: Dr. Kwabena Menjivar MD; Dr. Mariano Chan MD~ Signed [facility]04-10-2025 [facility] Progress note Author Mariano [facility] Note Date/Time May 17, 2024 8:15 am [facility] Medical Records Department [address] [facility] [place] [address] Progress Note - Rehab 05/17/24812 MR#: [id number] Acct: [id number] Name: YAS ROSA Rep #:[id number] : 1940 83 From: Mariano Chan MD PCP: Dr. Kwabena Menjivar MD Status :ADM IN Location: [place] [address] Subjective Subjective Patient seen, examined. He is [...] Cosigner Signature (if applicable): CC: ~ Signed [facility] Work Phone: 1(770) 998-385804-09-2025 Progress note [facility] Medical Records Department [address] [place] [address] Progress Note - Rehab 05/17/24812 MR#: [id number] Acct: [id number] Name: YAS ROSA Rep #:[id number] : 1940 83 From: Mariano Chan MD PCP: Dr. Kwabena Menjivar MD Status :ADM IN Location: [place] [address] Subjective Subjective Patient seen, examined. He is [...] Cosigner Signature (if applicable): CC: ~ Signed [facility]04-08-2025 Progress note Author Mariano Chan [facility] Note Date/Time May 16, 2024 8:25 am [facility] Medical Records Department [address] [place] [address] Progress Note - Rehab 05/16/24820 MR#: [id number] Acct: [id number] Name: YAS ROSA Brigido Rep #:[id number] : 1940 83 From: Mariano Chan MD PCP: Dr. Kwabena Menjivar MD Status :ADM IN Location: [place] [address] Subjective Subjective Patient seen, examined. Elayne from OT present. Milan is out of c-collar for breakfast. He was able to walk to the bathroom today instead of using wheelchair, plan is discharge to [facility] in 4 days. Objective Data Objective Data [...] Cosigner Signature (if applicable): CC: ~ Signed [facility] Work Phone: [phone] 824-173704-08-2025 Progress note [facility] Medical Records Department [address] [place] [address] Progress Note - Rehab 05/16/24820 MR#: [id number] Acct: [id number] Name: YAS ROSA Rep #:[id number] : 1940 83 From: Mariano Chan MD PCP: Dr. Kwabena Menjivar MD Status :ADM IN Location: [place] [address] Subjective Subjective Patient seen, examined. Elayne from OT present. Milan is out of c-collar for breakfast. He was able towalk to the bathroom today instead of using wheelchair, plan is discharge to [facility] in 4 days. Objective Data Objective Data [...] Cosigner Signature (if applicable): CC: ~ Signed [facility]04-07-2025 Progress note Author Mariano Chan [facility] Note Date/Time May 15, 2024 7:[address] [facility] Medical Records Department [address] [place] [address] Progress Note - Rehab 05/15/24 0747 MR#: [id number] Acct: [id number] Name: YAS ROSA Rep #:[id number] : 1940 83 From: Mariano Chan MD PCP: Dr. Kwabena Menjivar MD Status :ADM IN Location: [place] [address] Subjective Subjective Patient seen, examined. He told [...] Cosigner Signature (if applicable): CC: ~ Signed [facility] Work Phone: 1(967) 209-731904-07-2025 Progress note [facility] Medical Records Department [address] [place] [address] Progress Note - Rehab 05/15/24 0747 MR#: [id number] Acct: [id number] Name: YAS ROSA Rep #:[id number] : 1940 83 From: Mariano Chan MD PCP: Dr. Kwabena Menjivar MD Status :ADM IN Location: [place] [address] Subjective Subjective Patient seen, examined. He told [...] Cosigner Signature (if applicable): CC: ~ Signed [facility]04-04-2025 Progress note Author Mariano Chan [facility] Note Date/Time May 12, 2024 8:[address] [facility] Medical Records Department [address] [place] [address] Progress Note - Rehab 05/12/24 0802 MR#: [id number] Acct: [id number] Name: YAS ROSA Rep #:[id number] : 1940 83 From: Mariano Chan MD PCP: Dr. Kwabena Menjivar MD Status :ADM IN Location: [place] [address] Subjective Subjective Patient seen, examined. Dr. Diego [...] Catheter Urine Culture - Preliminary GNR lactose hall tender 04/27/24 22:05 Urine Catheter - Catheter Urine [...] culture growing 50,000 to 80,000 gnr lactose hall tender, Cipro 250mg bid x 7 days. * Nutrition - Ensure Plus 120mL 4x/day. * Neuropathic pain - Gabapentin 100mg bidcm. * Skin irritation - Calmoseptine topical bid. * Orthostatic hypotension - Midodrine 10mg tid. * Depression/Insomnia/appetite loss - Mirtazapine 15mg qhs. * GERD - Pantoprazole 40mg bid. 05/12/24807 <Electronically signed by Mariano Chan MD> Cosigner Signature (if applicable): CC: ~ Signed [facility] Work Phone: 1(436) 931-104304-04-2025 Progress note [facility] Medical Records Department [address] [place] [address] Progress Note - Rehab 05/12/24 0802 MR#: [id number] Acct: [id number] Name: YAS ROSA Rep #:[id number] : 1940 83 From: Mariano Chan MD PCP: Dr. Kwabena Menjivar MD Status :ADM IN Location: [place] [address] Subjective Subjective Patient seen, examined. Dr. Diego [...] Catheter Urine Culture - Preliminary GNR lactose hall tender 04/27/24 22:05 Urine Catheter - Catheter Urine [...] culture growing 50,000 to 80,000 gnr lactose hall tender, Cipro 250mg bid x 7 days. * Nutrition - Ensure Plus 120mL 4x/day. * Neuropathic pain - Gabapentin 100mg bidcm. * Skin irritation - Calmoseptine topical bid. * Orthostatic hypotension - Midodrine 10mg tid. * Depression/Insomnia/appetite loss - Mirtazapine 15mg qhs. * GERD - Pantoprazole 40mg bid. 05/12/24 0808 Cosigner Signature (if applicable): CC: ~ Signed [facility]04-03-2025 Progress note Author Ciro Diego [facility] Note Date/Time May 11, 2024 2:35 pm [facility] Medical Records Department [address] [place] [address] Progress Note - Orthopedic 05/11/24 1426 MR#: [id number] Acct: [id number] Name: YAS ROSA Rep #:[id number] : 1940 83 From: Ciro Diego MD PCP: Dr. Kwabena Menjivar MD Status :ADM IN Location: [place] [address]1 Subjective Subjective Saw patient in [facility] today as a 2-week follow-up. Patient comfortable [...] Catheter Urine Culture - Preliminary GNR lactose hall tender 04/27/24 22:05 Urine Catheter - Catheter Urine Culture - Final Culture exhibits no growth. 04/29/24 22:20 Stool Stool Occult Blood (JERMAINE) - Final Radiography Diagnostic Testing: Radiology Impression Cervical Spine X-Ray 05/10/24 15:00 IMPRESSION: Stable ACDF hardware. No acute fracture or traumatic listhesis. Reading Location: [facility] Physical Exam Narrative Examination the neck [...] Cosigner Signature (if applicable): CC: ~ Signed [facility] Work Phone: 1([phone] 184-198904-03-2025 Progress note [facility] Medical Records Department [address] [place] [address] Progress Note - Orthopedic 05/11/24 1426 MR#: [id number] Acct: [id number] Name: YAS ROSA Rep #:[id number] : 1940 83 From: Ciro Diego MD PCP: Dr. Kwabena Menjivar MD Status :ADM IN Location: [place] [address]-1 Subjective Subjective Saw patient in [facility] today as a 2-week follow-up. Patient comfortable [...] Catheter Urine Culture - Preliminary GNR lactose hall tender 04/27/24 22:05 Urine Catheter - Catheter Urine Culture - Final Culture exhibits no growth. 04/29/24 22:20 Stool Stool Occult Blood (JERMAINE) - Final Radiography Diagnostic Testing: Radiology Impression Cervical Spine X-Ray 05/10/24 15:00 IMPRESSION: Stable ACDF hardware. No acute fracture or traumatic listhesis. Reading Location: [facility] Physical Exam Narrative Examination the neck [...] in the clinic. Patient was in agreement. 05/11/241434 Cosigner Signature (if applicable): CC: ~ Signed [facility]04-02-2025 Progress note Author Mariano Chan [facility] Note Date/Time May 10, 2024 5:[address] [facility] Medical Records Department [address] [place] [address] Progress Note - Rehab 05/10/24 1731 MR#: [id number] Acct: [id number] Name: YAS ROSA Rep #:[id number] : 1940 83 From: Mariano Chan MD PCP: Dr. Kwabena Menjivar MD Status :ADM IN Location: [place] [address] Subjective Subjective Patient seen, examined. He seems [...] Sl. Cloudy, Urine pH 6.0, Ur Specific [place] 1.015, Urine Protein 500 H, Urine Glucose [...] acute fracture or traumatic listhesis. Reading Location: [id number] Indicators for Scoring Admitted with or Primary [...] 40mg bid. 05/10/24 1741 <Electronically signed by Mariaon Chan MD> Cosigner Signature (if applicable): CC: ~ Signed [facility] Work Phone: 1(736) 245-974504-02-2025 Progress note [facility] Medical Records Department [address] [place] [address] Progress Note - Rehab 05/10/24 173 MR#: [id number] Acct: [id number] Name: YAS ROSA Rep #:[id number] : 1940 83 From: Mariano Chan MD PCP: Dr. Kwabena Menjivar MD Status :ADM IN Location: [place] [address]-1 Subjective Subjective Patient seen, examined. He seems [...] Sl. Cloudy, Urine pH 6.0, Ur Specific [place] 1.015, Urine Protein 500 H, Urine Glucose [...] acute fracture or traumatic listhesis. Reading Location: [facility] Indicators for Scoring Admitted with or [...] Cosigner Signature (if applicable): CC: ~ Signed [facility]04-02-2025 Radiology Diagnostic study note [facility] Imaging Services [address] [place] [address] Cerv Spine 2 or 3 Views MR#: [id number] Acct: [id number] Name: YAS ROSA Rep #: [id number] : 1940 M 83 From: Lisa Bailey MD PCP: Dr. Kwabena Menjivar MD Status: ADM IN Study:Cerv Spine 2 or 3 Views Date of Exam: 05/10/24 Exam# [id number] Ordering Dr: Sherwin Clark CHIEF COMMUNICATIONS OFFICERSaloni PROCEDURE: CERV SPINE 2 OR 3 VIEWS [...] acute fracture or traumatic listhesis. Reading Location: [facility] CC: CHIEF COMMUNICATIONS OFFICER-C Beronica Clark; Dr. 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04-01-2025 Progress note Author Corazon Demetriusgavin [facility] Note Date/Time May 09, 2024 12:[address] [facility] Medical Records Department [address] [place] [address] Progress Note 05/09/24 1035 MR#: [id number] Acct: [id number] Name: YAS ROSA Rep #:[id number] : 1940 83 From: Corazon Wright DO PCP: Dr. Kwabena Menjivar MD Status :ADM IN Location: [place] [address] Subjective Subjective Afebrile VSS -blood pressure this a.m. was 102/62 with a heart rate of 59. Maintaining appropriate oxygen saturation on RA-94 to 97%. Oral intake - FOOD food intake is improving. He ate 50 to 100% of his last 6 meals. FLUIDS good. Fluid intake yesterday was 1959. Urine output was 1504 apositive fluid balance [...] maintain good fluid intake. He can have [place] water. Objective Data Objective Data Vital Signs: [...] 23:59 Intake Total 1670 / 1670 1959 320 / 320 Output Total 1400 [...] but, no erythema of the anterior neck. Cross J collar is in place. Psych Psych [...] esophageal dysmotility. Charges/Coding Visit Charges Inpatient E&M: 26379 [facility] L1 05/09/24 1252 <Electronically signed by Corazon Wright DO> Corazon Wright DO Cosigner Signature (if applicable): CC: ~ Signed [facility] Work Phone: 1(704) 439-315904-01-2025 Procedure note [facility] Speech Pathology [address] [place] [address] Modified Barium Swallow Study MR#: [id number] Acct: [id number] Name: YAS ROSA Rep #:[id number] : 1940 83 From: Lalita jacobson M.A., CCC-PARTS MANAGER Modified Barium Swallow Patient Information Study Date: 05/09/24 Study Time: 10:00 Direct Billable Minutes: 120 Total Minutes procedure & reportin Diagnosis: Pharyngeal dysphagia Referring Physician: Corazon Wright Medical History: The patient presented to [facility] ED 04/19/2024 after a fall at [...] Result: 8= enters airway/below vocal folds/no effort Woodward Thick Liquid via teaspoon: Result: 2= enter airway/above vocal folds/ejected Woodward Thick Liquid via small single sip: cup: [...] 3: Result: 2= enter airway/above vocal folds/ejected Woodward Thick Liquid via single sip: straw: Result: 1= does not enter airway Woodward Thick Liquid via single sip: straw Trial [...] Status Active ST Patient: Active Contact Information [facility] Speech Therapy:: Lalita Grande M.A. PARTS MANAGER Speech-Language Pathologist [address] [facility] [place] [address] [email or web address] [phone] 05/09/24 1253 marti Daigle CCC-PARTS MANAGER> Date/Time Lalita Grande M.A., CCC-PARTS MANAGER Co-Signature Required for all Medicare patients Date/Time Co-Signature CC: ~ [facility]04-01-2025 Progress note [facility] System Medical Records Department [address] [place] [address] Progress Note 05/09/24 1035 MR#: [id number] Acct: [id number] Name: YAS ROSA Brigido Rep #:[id number] : 1940 83 From: Corazon Wright DO PCP: Dr. Kwabena Menjivar MD Status :ADM IN Location: [place] [address] Subjective Subjective Afebrile VSS -blood pressure this [...] but, no erythema of the anterior neck. Cross J collar is in place. Psych Psych [...] esophageal dysmotility. Charges/Coding Visit Charges Inpatient E&M: 44670 [facility] Hosp L1 05/09/24 1252 Corazon Wright DO Cosigner Signature (if applicable): CC: ~ Signed [facility]03-31-2025 Progress note [facility] Note Date/Time May 08, 2024 2:[address] [facility] Medical Records Department [address] [place] [address] Progress Note 05/08/24 0956 MR#: [id number] Acct: [id number] Name: MOEYAS Brigido Rep #:[id number] : 1940 83 From: Corazon Wright DO PCP: Dr. Kwabena Menjivar MD Status :ADM IN Location: [address] Subjective Subjective Milan was seen on team [...] choose from. Charges/Coding Visit Charges Inpatient E&M: 71598 Subs Hosp L2 05/08/24 3432 <Electronically signed by Corazon Wright DO> Corazon Wright DO Cosigner Signature (if applicable): CC: ~ Signed [facility] Work Phone: 1(459) 962-956003-31-2025 Progress note [facility] System Medical Records Department [address] [place] [address] Progress Note 05/08/24 0956 MR#: [id number] Acct: [id number] Name: YAS ROSA Rep #:[id number] : 1940 83 From: Corazon Wright DO PCP: Dr. Kwabena Menjivar MD Status :ADM IN Location: DL605-1 Subjective Subjective Milan was seen on team [...] choose from. Charges/Coding Visit Charges Inpatient E&M: 83635 Subs Hosp L2 05/08/24 1438 Corazon Wright DO Cosigner Signature (if applicable): CC: ~ Signed [facility]03-28-2025 Progress note Author Corazon [facility] Note Date/Time May 05, 2024 1:[address] [facility] Medical Records Department [address] [place] [address] Progress Note 05/05/24 1103 MR#: [id number] Acct: [id number] Name: YAS ROSA Rep #:[id number] : 1940 83 From: Corazon Wright DO PCP: Dr. Kwabena Menjivar MD Status :ADM IN Location: [place] [address] Subjective Subjective Afebrile Heart rate continues to [...] need to go to a facility [place] from rehab. 5. Needs to follow up with psychiatry for meds and psychotherapy. Charges/Coding Visit Charges Inpatient E&M: 59374 Subs Hosp L1 05/05/24 1320 <Electronically signed by Corazon Wright DO> Corazon Wright DO Cosigner Signature (if applicable): CC: ~ Signed [facility] Work Phone: 1(367) 949-721703-28-2025 Progress note [facility] System Medical Records Department [address] [place] [address] Progress Note 05/05/24 1103 MR#: [id number] Acct: [id number] Name: YAS ROSA Rep #:[id number] : 1940 83 From: Corazon Wright DO PCP: Dr. Kwabena Menjivar MD Status :ADM IN Location: [place] [address] Subjective Subjective Afebrile Heart rate continues to [...] need to go to a facility at [place] from rehab. 5. Needs to follow up with psychiatry for meds and psychotherapy. Charges/Coding Visit Charges Inpatient E&M: 48783 [facility] Hosp L1 05/05/24 1320 Corazon Wright DO Cosigner Signature (if applicable): CC: ~ Signed [facility]03-26-2025 Progress note Author Corazon Demetriusgavin [facility] Note Date/Time May 03, 2024 1:[address] [facility] Medical Records Department [address] [place] [address] Progress Note 05/03/24 1227 MR#: [id number] Acct: [id number] Name: YAS ROSA Brigido Rep #:[id number] : 1940 83 From: Corazon Wright DO PCP: Dr. Kwabena Menjivar MD Status :ADM IN Location: [place] [address] Subjective Subjective Afebrile VSS -blood pressure over [...] the AM. Charges/Coding Visit Charges Inpatient E&M: 26415 Subs Hosp L1 05/03/24 1327 <Electronically signed by Corazon Wright DO> Corazon Wright DO Cosigner Signature (if applicable): CC: ~ Signed [facility] Work Phone: 1(648) 372-321703-26-2025 Progress note [facility] System Medical Records Department [address] [place] [address] Progress Note 05/03/24 1227 MR#: [id number] Acct: [id number] Name: YAS ROSA Rep #:[id number] : 1940 83 From: Corazon Wright DO PCP: Dr. Kwabena Menjivar MD Status :ADM IN Location: [place] [address] Subjective Subjective Afebrile VSS -blood pressure over [...] 2650 / 2650 4550 / 5175 1974 / 1974 Balance -830 / -830 -840.66 / [...] the AM. Charges/Coding Visit Charges Inpatient E&M: 77215 Subs Hosp L1 05/03/24 1327 Corazon Wright DO Cosigner Signature (if applicable): CC: ~ Signed [facility]03-25-2025 Progress note Author Corazon Demetriusgavin [facility] Note Date/Time May 02, 2024 4:5 7pm [facility] System Medical Records Department [address] [facility] [place] [address] Progress Note 05/02/24 1236 MR#: [id number] Acct: [id number] Name: YAS ROSA Rep #:[id number] : 1940 83 From: Corazon Wright DO PCP: Dr. Kwabena Menjivar MD Status :ADM IN Location: [place] [address]-1 Subjective Subjective Afebrile VSS -blood pressure over [...] took 3 staff to walk him at [facility] [place] [facility] Medication list reviewed. Has not taken [...] / 2521.33 1820 / 1820 2049.34 / 2048.34 Output Total 4625 / 4625 2650 / [...] 3 days Charges/Coding Visit Charges Inpatient E&M: 29016 Subs Hosp L1 05/02/24 1657 <Electronically signed by Corazon Wright DO> Corazon Wright DO Cosigner Signature (if applicable): CC: ~ Signed [facility] Work Phone: 1(172) 106-540903-25-2025 Progress note [facility] System Medical Records Department [address] [place] [address] Progress Note 05/02/24 1236 MR#: [id number] Acct: [id number] Name: YAS ROSA Rep #:[id number] : 1940 83 From: Corazon Wright DO PCP: Dr. Kwabena Menjivar MD Status :ADM IN Location: [place] [address] Subjective Subjective Afebrile VSS -blood pressure over [...] took 3 staff to walk him at [facility] [place] [facility] Medication list reviewed. Has not taken [...] 3 days Charges/Coding Visit Charges Inpatient E&M: 78320 Subs Hosp L1 05/02/24 1657 Corazon Wright Cosigner Signature (if applicable): CC: ~ Signed [facility]03-25-2025 Progress note Author Corazon Wright [facility] Note Date/Time May 02, 2024 2:1 3pm [facility] System Medical Records Department [address] [place] [address] Progress Note 05/01/24 1234 MR#: [id number] Acct: [id number] Name: YAS ROSA Rep #:[id number] : 1940 83 From: Corazon Wright DO PCP: Dr. Kwabena Menjivar MD Status :ADM IN Location: [place] [address] Subjective Subjective Milan was seen on team [...] continue IVF's. Charges/Coding Visit Charges Inpatient E&M: 65636 Subs Hosp L2 05/02/24 1413 <Electronically signed by Corazon Wright DO> Corazon Wright DO Cosigner Signature (if applicable): CC: ~ Signed [facility] Work Phone: 1(510) 230-157703-25-2025 Progress note [facility] System Medical Records Department [address] [place] [address] Progress Note 05/01/24 1234 MR#: [id number] Acct: [id number] Name: YAS ROSA Rep #:[id number] : 1940 83 From: Corazon WuEvette Demetriusgavin BREWER PCP: Dr. Kwabena Menjivar MD Status :ADM IN Location: DP009-6 Subjective Subjective Milan was seen on team [...] BUN is down to 16 from 27 04/29/2023. Creatinine is 0.74 which is within his [...] explained by the physical therapist and myself. ZAHRAE remains flaccid. Awareness of his disability is [...] L, MPV 8.6, Sodium 141, Potassium 4.5, [id number] H, Carbon Dioxide 23.7, Anion Gap 8, [...] continue IVF's. Charges/Coding Visit Charges Inpatient E&M: 06671 Subs Hosp L2 05/02/24 1413 Corazon Wright DO Cosigner Signature (if applicable): CC: ~ Signed [facility]03-21-2025 History and physical note [facility] Note Date/Time April 28, 2024 3:[address] [facility] Medical Records Department [address] [place] [address] Post Admission Physician Eval 04/28/24 1241 MR#: [id number] Acct: [id number] Name: YAS ROSA Rep #:[id number] : 1940 83 From: Corazon Wright DO PCP: Dr. Kwabena Menjivar MD Status :ADM IN Location: [place] [address] Admission Information Primary Diagnosis:: DEBILITY DUE TO [...] Skin integrity and Medication Management Patient needs Hat And Cap Parts Cutter Hand/ Case Management for: Discharge Planning, Arranging Home [...] TBD Was Preadmission Assessment Accurate?: Yes 04/28/24 4842 <Electronically signed by Corazon Wright DO> Cosigner Signature (if applicable): CC: ~ Signed [facility] Work Phone: 1(371) 118-957103-21-2025 History and physical note Author Corazon Wright [facility] Note Date/Time April 28, 2024 3:[address] [facility] Medical Records Department [address] [place] [address] History & Physical Exam 04/28/24 1015 MR#: [id number] Acct: [id number] Name: YAS ROSA Rep #:[id number] : 1940 83 From: Corazon Wright PCP: Dr. Kwabena Menjivar MD Status :ADM IN Location: [facility]-4 [facility] - General General Date of [...] vertigo. He presented to the ED at [facility] on 04/19/24 after having a fall [...] the emergency department. [facility] Medical History (Updated 04/28/24 @ 15:[address] Corazon Wright, ) Angiectasia of large intestine History of gastric [...] Father , at 40 YOA of an [place] Heart disease Other Hypertension Surgical History (Updated [...] is subluxed dueto muscle atrophy. Can not chiropractic practice manager with hand. R arm falls immediately to the bed when I lift it up. He has some tone in the R triceps, biceps and brachioradialis muscle. Has shoulder shrug BL which is about even. NO tremors. R chiropractic practice manager is weak and heb is R hand dominant. He can lift both legs off the bed and hold for 5 sec. Good plantar flexion and dorsiflexion with both feet. PERRLA. No faciall droop. No nystagmus. Tracks well and did not have vertigo Psych mental status grossly normal, thought process normal and cooperative Psych Narrative: depressed affect. Not suicidal......his synagogue ([employer]) feels this is a sinand you will [...] Clarity Clear, Urine pH 5.0, Ur Specific [place] 1.020, Urine Protein 15 H, Urine Glucose [...] completing documentation. Charges/Coding Visit Charges Inpatient E&M: 90686 Init Hosp L3 04/28/24 1274 <Electronically signed by Corazon Wright DO> Cosigner [...] MD; Dr. Corazon Wright DO ~* Signed [facility] Work Phone: 1(635) 136-727003-21-2025 History and physical note [facility] Medical Records Department [address] [place] [address] Post Admission Physician Jodie 04/28/24 1241 MR#: [id number] Acct: [id number] Name: YAS ROSA Rep #:[id number] : 1940 83 From: Corazon Wright DO PCP: Dr. Kwabena Menjivar MD Status :ADM IN Location: [place] [address] Admission Information Primary Diagnosis:: DEBILITY DUE TO [...] Skin integrity and Medication Management Patient needs Hat [employer] Cap Parts Cutter Hand/ Case Management for: Discharge Planning, Arranging Home [...] [facility] Patient will perform Tub/Shower transfer at: - (Min assist with DME as needed) Patient will complete grooming at: - (Minimal assistance while seated at the sink) Patient will achieve: - (12 steps with 1 handrail to allow access [facility] ) Patient will have pain level of: of 3 or less Patient's skin will: remain intact Patient will receive: adequate nutrition. Discharge Planning Pt Prognosis for Sig. Practical Improv. w/in Reasonable Time: Good Estimated Length of stay (days): 28 Anticipated D/C Destination: TBD Was Preadmission Assessment Accurate?: Yes 04/28/24 3685 Cosigner Signature (if applicable): CC: ~ Signed [facility]03-21-2025 History and physical note [facility] Medical Records Department [address] [place] [address] History & Physical Exam 04/28/24 1015 MR#: [id number] Acct: [id number] Name: YAS ROSA Brigido Rep #:[id number] : 1940 83 From: Corazon Wright DO PCP: Dr. Kwabena Menjivar MD Status :ADM IN Location: [place] [address]1 [facility] - General General Date of [...] vertigo. He presented to the ED at [facility] on 04/19/24 after having a fall [...] to theemergency department. [facility] Medical History (Updated 04/28/24 @ 15:16 by [...] Father , at 40 YOA of an [place] Heart disease Other Hypertension Surgical History (Updated [...] is subluxed dueto muscle atrophy. Can not chiropractic practice manager with hand. R arm falls immediately to the bed when I lift it up. He has some tone in the R triceps, biceps and brachioradialis muscle. Has shoulder shrug BL which is about even. NO tremors.R chiropractic practice manager is weak and heb is R hand dominant. He can lift both legs off the bed and hold for 5 sec. Good plantar flexion and dorsiflexion with both feet. PERRLA. No faciall droop. No nystagmus. Tracks well and did not have vertigo Psych mental status grossly normal, thought process normal and cooperative Psych Narrative: depressed affect. Not suicidal......his synagogue ([employer]) feels this is a sinand you will [...] Clarity Clear, Urine pH 5.0, Ur Specific [place] 1.020, Urine Protein 15 H, Urine Glucose [...] completing documentation. Charges/Coding Visit Charges Inpatient E&M: 32140 Init Hosp L3 04/28/24 1519 Cosigner Signature [...] MD; Dr. Corazon Wright, DO ~* Signed [facility]03-21-2025 [facility] Progress note Author Awa Chadwick [facility] Note Date/Time April 27, 2024 7:4 5pm [facility] System Medical Records Department [address] [place] [address] Progress Note - Orthopedic 04/27/241938 MR#: [id number] Acct: [id number] Name: YAS ROSA Rep #:[id number] : 1940 83 From: Awa CONTEH PCP: Dr. Kwabena Menjivar MD Status :ADM IN Location: [place] [address] Subjective Subjective Seen with Dr. Diego. Patient [...] reapplied. Neurological examination left grade 1 finger chiropractic practice manager, grade 0 finger abduction, grade 4 [...] Cosigner Signature (if applicable): CC: ~ Signed [facility] Work Phone: 1(359) 936-790503-20-2025 Progress note [facility] System Medical Records Department [address] [place] [address] Progress Note - Orthopedic 04/27/241938 MR#: [id number] Acct: [id number] Name: YAS ROSA Rep #:[id number] : 1940 83 From: Awa CONTEH PCP: Dr. Kwabena Menjivar MD Status :ADM IN Location: [place] [address] Subjective Subjective Seen with Dr. Diego. Patient [...] reapplied. Neurological examination left grade 1 finger chiropractic practice manager, grade 0 finger abduction, grade 4 [...] Cosigner Signature (if applicable): CC: ~ Signed [facility]03-20-2025 Evaluation note* Diagnosis Onset Date Resolution Status Admit Date BPPV (benign paroxysmal positional vertigo) acute April 27, 2024 3:15pm Debility acute April 27 3:15pm Dysphagia acute April 27 3:15pm Fall acute April 27 3:15pm GERD (gastroesophageal reflu x disease) acute April 27, 2024 3:15pm Muscle spasm acute April 27, 2024 3:15pm Orthostatic hypotension acute [facility] 2024 3:15pm Osteoarthritis acute April 3:15pm Severe dehydration acute April 27, 2024 3:15pm Status post cervical spinal fusion acute April 27, 2024 3:15pm Traumatic brain injury with loss of consciousness acute April 27 3:15pm Urinary incontinence acute [facility] 2024 3:15pm Urine retention acute April 3:15pm Anxiety and depression chronic [facility] 2024 3:15pm Bilateral arm weakness chronic [facility] 2024 3:15pm Chronic left shoulder pain chronic April 27, 2024 3:15pm GERD with esophagitis chronic [facility] 2024 3:15pm History of IBS chronic April [...] Orthostatic lightheadedness resolved August 06, 2024 1:22pm [place] [employer] Work Phone: 1(335) 546-306803-20-2025 Discharge summary [facility] Medical Records Department [address] [place] [address] Discharge Summary 04/27/24 1353 MR#: [id number] Acct: [id number] Name: YAS ROSA Rep #:[id number] : 1940 83 From: Harish Schneider PCP: Dr. Kwabena Menjivar MD Status :ADM IN Location: [place] [address] Providers Date of Admission: 04/20/24 Date of [...] EMERGENT Consult: No Notified: Yes Date Notified: 03/13/25 Time Notified: 09:41 Method of Notification: Text [...] EACH EYE Q1HPRN DRY EYES #0 mL /20/25 diazepam 2 mg tablet 2 mg PO [...] (Auto) 78.8 H, Lymph % (Auto) 14.3L, [place] % (Auto) 5.8, Eos % (Auto) 0.0, [...] fluoroscopic images were also obtained. Reading Location: [address] Cervical Spine X-Ray 04/26/24 11:05 IMPRESSION: Intraoperative fluoroscopy performed for anterior cervical discectomy and fusionsurgery. 10 fluoroscopic images were also obtained. Reading Location: [id number] Cervical Spine X-Ray 04/27/24 07:00 IMPRESSION: Osteopenia. Interval placement of a metallic fixation plate at the anterior margin of C3-C6. Interval placement of interbody spacer devices at C3-4, C4-5, and C5-6. No acute bony abnormality of the cervical spine. Similar moderate/severe degenerative disc disease at C6-7. [facility] Discharge Diet: Light diet - [...] Self Care Charges/Coding Visit Charges Inpatient E&M: 53979 Disch Hosp >30min 04/27/24 2203 Cosigner Signature (if applicable): CC: Dr. Kwabena Menjivar MD; Dr. Harish Baxter MD~ Signed [facility]03-20-2025 Discharge summary [facility] System Medical Records Department [address] [place] [address] Instructions for Home/Discharge Instructions 04/27/24 1045 MR#: [id number] Acct: [id number] Name: YAS ROSA Rep #:[id number] : 1940 83 From: Harish Schneider PCP: [...] Alfred DO; Dr.Robert Gretchen MD ~ Signed [facility]03-20-2025 [facility]-2025 Discharge summary Author Harish Baxter [facility] Note Date/Time April 27, 2024 1:[address] [facility] Medical Records Department [address] [place] [address] Instructions for Home/Discharge Instructions 04/27/24 1045 MR#: [id number] Acct: [id number] Name: YAS ROSA Rep #:[id number] : 1940 83 From: Harish Schneider PCP: [...] Alfred DO; Dr.Robert Gretchen MD ~ Signed [facility] Work Phone: 1(497) 702-838503-20-2025 Radiology Diagnostic study note [facility] Imaging Services [address] [place], [place] [id number] Cerv Spine 2 or 3 Views MR#: [id number] Acct: [id number] Name: MOEYAS Brigido Rep #: [id number] : 1940 M 83 From: Oren Narvaez DO PCP: Dr. Kwabena Menjivar MD Status: ADM IN Study:Cerv Spine 2 or 3 Views Date of Exam: 04/27/24 Exam# [id number] Ordering Dr: Cheikh Chadwick PA PROCEDURE: Cervical spine radiographs, two views 04/27/2024 [...] YADY Hyman; Dr. 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03-19-2025 Progress note Author Harish Baxter [facility] Note Date/Time April 26, 2024 4:[address] [facility] Medical Records Department [address] [place] [address] Progress Note - Hospitalist 04/26/24 1525 MR#: [id number] Acct: [id number] Name: YAS ROSA Rep #:[id number] : 1940 83 From: Harish Schneider PCP: Dr. Kwabena Menjivar MD Status :ADM IN Location: [facility] BIT685- 1 Reason for Visit Reason for Visit: [...] % (Auto) 62.4, Lymph % (Auto) 26.4, [place]% (Auto) 8.2, Eos % (Auto) 2.2, Baso [...] fluoroscopic images were also obtained. Reading Location: [address] Cervical Spine X-Ray 04/26/24 11:05 IMPRESSION: Intraoperative fluoroscopy performed for anterior cervical discectomy and fusionsurgery. 10 fluoroscopic images were also obtained. Reading Location: [address] Physical Exam Narrative Seen and examined [...] with SCDs Charges/Coding Visit Charges Inpatient E&M: 29494 Subs Hosp L2 04/26/24 9024 <Electronically signed by Harish Baxter MD> Cosigner Signature (if applicable): CC: ~ Signed [facility] Work Phone: 1(765) 546-163803-19-2025 Consult note Author Krish Guevara [facility] Note Date/Time April 26, 2024 3:5 1pm [facility] Medical Records Department [address] [place] [address] Anesthesia Postop Eval II 04/26/24 1549 MR#: [id number] Acct: [id number] Name: YAS ROSA Rep #:[id number] : 1940 83 From: Krish Guevara MD PCP: Dr. Kwabena Menjivar MD Status :ADM IN Y Race: C Location: [address] Anesthesia Postop Eval I Sum Postop Eval Completion status Anesthesia document: Postop Eval 1 completed: Yes Anesthesia Postop Eval I Summary Anesthesia Postop Eval I Summary: Anesthesia Postop Eval I: Assessment Summary Airway patent Yes 04/26/24 14:22 PLANNING ASSOCIATE.TNES Spontaneous unlabored Yes 04/26/24 14:22 PLANNING ASSOCIATE.TNES respirations Mental status nausea No 04/26/24 14:22 PLANNING ASSOCIATE.TNES Vomiting No 04/26/24 14:22 PLANNING ASSOCIATE.TNES Anesthesia Postop Eval I: Fluid Summary Crystalloid volume administer 1,400 04/26/24 14:22 PLANNING ASSOCIATE.TNES (ml) Colloids volume administered ( ml) Blood Product volume administered (ml) Total IV fluid infused 1,400 04/26/24 14:22 PLANNING ASSOCIATE.TNES Anesthesia Postop Eval I: Summary Notes Anesthesia Complication No 04/26/24 14:22 PLANNING ASSOCIATE.TNES Anesthesia Complication Comment: Post-operative progress note Anesthesia: Postop Eval II Evaluation Mental status: Awake and Calm Pain Level: 2 nausea: No Vomiting: No Complications Anesthesia Complication: No 04/26/24 1551 <Electronically signed by Krish parada MD> Date _ Krish Guevara MD Cosigner Signature: Date CC: ~ Signed [facility] Work Phone: 1(143) 532-753503-19-2025 Progress note [facility] Medical Records Department [address] [place] [address] Progress Note - Hospitalist 04/26/24 1525 MR#: [id number] Acct: [id number] Name: YAS ROSA Rep #:[id number] : 1940 83 From: Harish Schneider PCP: Dr. Kwabena Menjivar MD Status :ADM IN Location: [place] [address] Reason for Visit Reason for Visit: Diagnoses [...] % (Auto) 62.4, Lymph % (Auto) 26.4, [place]% (Auto) 8.2, Eos % (Auto) 2.2, Baso [...] fluoroscopic images were also obtained. Reading Location: [address] Cervical Spine X-Ray 04/26/24 11:05 IMPRESSION: Intraoperative fluoroscopy performed for anterior cervical discectomy and fusionsurgery. 10 fluoroscopic images were also obtained. Reading Location: [address] Physical Exam Narrative Seen and examined [...] dressing soaked with serosanguineous fluid, expected from [place] drain. Subcutaneous bruise/ecchymosis over left orbital and [...] with SCDs Charges/Coding Visit Charges Inpatient E&M: 56036 Subs Hosp L2 04/26/24 1635 Cosigner Signature (if applicable): CC: ~ Signed [facility]03-19-2025 Consult note Author Tl Danielsbitt [facility] Note Date/Time April 26, 2024 2:2 2pm [facility] Medical Records Department [address] [place] [address] Anesthesia Postop Eval I 04/26/24 1422 MR#: [id number] Acct: [id number] Name: MOEYAS Brigido Rep #:[id number] : 1940 83 From: Tl JHAVERI PCP: Dr. Kwabena Menjivar MD Status :ADM IN Y Race: C Location: [place] [address] Anesthesia: Postop Eval I Current Vital Signs Temperature: 97.7 F Pulse Rate: 66 Blood Pressure: 107/55 Respiratory Rate: 16 Pulse Ox: 94 Assessment Airway patent: Yes Spontaneous unlabored respirations: Yes nausea: No Vomiting: No Anesthesia Complication: No Fluid Hydration Crystalloid volume administer (ml): 1,400 Total IV fluid infused: 1,400 Progress Note Anesthesia document: Postop Eval 1 completed: Yes 04/26/24 1422 <Electronically signed by Tl Daniel CRNA> Date _ Tl Daniel CRNA Cosigner Signature: Date CC: ~ Signed [facility] Work Phone: 1(444) 278-325903-19-2025 Consult note [facility] Medical Records Department [address] [place] [address] Anesthesia Postop Eval II 04/26/24 1549 MR#: [id number] Acct: [id number] Name: YAS ROSA Rep #:[id number] : 1940 83 From: Krish Guevara MD PCP: Dr. Kwabena Menjivar MD Status :ADM IN Y Race: C Location: [place] [address] 6-1 Anesthesia Postop Eval I Sum Postop Eval Completion status Anesthesia document: Postop Eval 1 completed: Yes Anesthesia Postop Eval I Summary Anesthesia Postop Eval I Summary: Anesthesia Postop Eval I: Assessment Summary Airway patent Yes 04/26/24 14:22 PLANNING ASSOCIATE.TNES Spontaneous unlabored Yes 04/26/24 14:22 PLANNING ASSOCIATE.TNES respirations Mental status nausea No 04/26/24 14:22 PLANNING ASSOCIATE.TNES Vomiting No 04/26/24 14:22 PLANNING ASSOCIATE.TNES Anesthesia Postop Eval I: Fluid Summary Crystalloid volume administer 1,400 04/26/24 14:22 PLANNING ASSOCIATE.TNES (ml) Colloids volume administered ( ml) Blood Product volume administered (ml) Total IV fluid infused 1,400 04/26/24 14:22 PLANNING ASSOCIATE.TNES Anesthesia Postop Eval I: Summary Notes Anesthesia Complication No 04/26/24 14:22 PLANNING ASSOCIATE.TNES Anesthesia Complication Comment: Post-operative progress note Anesthesia: Postop Eval II Evaluation Mental status: Awake and Calm Pain Level: 2 nausea: No Vomiting: No Complications Anesthesia Complication: No 04/26/24 1551 tal CABELLO> Date _ Krish Pritchard Signature: Date CC: ~ Signed [facility]03-19-2025 Procedure note [facility] Medical Records Department [address] [place] [address] Operative Report 04/26/24 1425 MR#: [id number] Acct: [id number] Name: YAS ROSA Rep #:[id number] : 1940 83 From: Ciro Diego MD PCP: Dr. 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, stenosis, cord compression withmyelopathy, cord signal changes Post-Operative Diagnosis: Same Surgery/Procedure Performed: C3-6 ACDF roof plumber: Yes Aircraft Restorer: Awa Chadwick Tasks completed by medical administrative assistant: Closing, Removing tissue, Implanting device, Hemostasis: [...] all DRAINS/GRAFTS/IMPLANTS that apply: Drains Drain details: [place] drain , Graft Graft details: Structural allograft cortical cancellous strut, DBX and Implanted device Implanted device details: Medtronic Harvey Elite plate instrumentation Estimated Blood Loss: 50 cc Specimen collected: No Description of surgery: Preoperative diagnosis: 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 Anesthesia: Gen. endotracheal Estimated blood loss: 50 mL Complications: None Instrumentation used: Medtronic Harvey Elite plate, LASR corticocancellous block Indications: The [...] Disc fragments were removed with the pituitary. [place] pins were placed in C4 and C5 [...] good pullout strength. A 60 mm Medtronic Harvey Elite plate wascontoured for larger lordosis due [...] entire surgery and performed the surgery myself. Autoclave Operator Awa Chadwick PA-C. My physician assistant tennis professional was a vital part of this case. [...] Keanu Alfred DO; Dr.Robert Gretchen MD~ Signed [facility]03-19-2025 Consult note [facility] Medical Records Department [address] [place] [address] Anesthesia Postop Eval I 04/26/241421 MR#: [id number] Acct: [id number] Name: YAS ROSA Rep #:[id number] : 1940 83 From: Tl JHAVERI PCP: Dr. Kwabena Menjivar MD Status :ADM IN Y Race: C Location: [place] [address] Anesthesia: Postop Eval I Current Vital Signs Temperature: 97.7 F Pulse Rate: 66 Blood Pressure: 107/55 Respiratory Rate: 16 Pulse Ox: 94 Assessment Airway patent: Yes Spontaneous unlabored respirations: Yes nausea: No Vomiting: No Anesthesia Complication: No Fluid Hydration Crystalloid volume administer (ml): 1,400 Total IV fluid infused: 1,400 Progress Note Anesthesia document: Postop Eval 1 completed: Yes 04/26/24 142 PLANNING ASSOCIATE> Date _ Tl Voigner Signature: Date CC: ~ Signed [facility]03-19-2025 Radiology Diagnostic study note [facility] Imaging Services [address] [place], [place] [address] Cerv Spine 2 or 3 Views MR#: [id number] Acct: [id number] Name: YAS ROSA Rep #: [id number] : 1940 M 83 From: Fito Maldonado MD PCP: Dr. Kwabena Menjivar MD Status: ADM IN Study:Cerv Spine 2 or 3 Views Date of Exam: 04/26/24 Exam# [id number] Ordering Dr: Kristine Diego MD PROCEDURE: CERV [...] fluoroscopic images were also obtained. Reading Location: [address] CC: Dr. Ciro Diego MD; Dr. 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03-19-2025 Radiology Diagnostic study note [facility] Imaging Services [address] [place], [place] [id number] O.R. Fluoro for C-Arm MR#: [id number] Acct: [id number] Name: YAS ROSA Rep #: [id number] : 1940 M 83 From: Fito Maldonado MD PCP: Dr. Kwabena Menjivar MD Status: ADM IN Study:O.R. Fluoro for C-Arm Date of Exam: 04/26/24 Exam# [id number] Ordering Dr: Kristine Diego MD PROCEDURE: CERV [...] fluoroscopic images were also obtained. Reading Location: [address] CC: Dr. Ciro Diego MD; Dr. 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03-19-2025 Consult note Author Tl María [facility] Note Date/Time April 26, 2024 10: 39am [facility] Medical Records Department [address] [place] [address] Pre-Anesthesia Evaluation 04/26/24 1033 MR#: [id number] Acct: [id number] Name: YAS ROSA Rep #:[id number] : 1940 83 From: Tl LOPEZ NA PCP: Dr. Kwabena Menjivar MD Status :ADM IN Y Race: C Location: [place] [address] ASA Classification* ASA Classification ASA Classification: 3 [...] ACDF C3-6 Anesthesia History Anesthesia History - boiling off winder: Anesthesia History - boiling off winder Hx Hospitalization No 03/08/24 08:44 Any Problems [...] take am of surgery PONV PONV - boiling off winder: PONV - boiling off winder Female HX of Motion Sickness HX of N/V After Surgery Non-Smoker Duration of Surgery greater than 60 minutes Number of Risk Factors PONV Score Height & Weight Height & Weight: Anesthesia: Height & Weight Height 5 ft 8 in 04/26/24 08:40 Weight: 75.6 kg 04/26/24 08:40 Body Mass Index (BMI) 25.3 04/26/24 08:40 Respiratory Assessment Respiratory Assessment - boiling off winder: Respiratory Tract Infection Hx - boiling off winder Hx Respiratory Tract Infection No 04/25/24 21:52 STOP Sleep Apnea STOP Sleep Apnea - boiling off winder: STOP Sleep Apnea - boiling off winder Hx Hypertension No 04/20/24 12:54 Hx Sleep [...] Tobacco Use History Tobacco Use History - boiling off winder: Tobacco Use History - boiling off winder Tobacco Use Smoking Status Former smoker 04/19/24 15:04 Hx Tobacco Use No 04/19/24 15:04 Years Smoking Packs Smoked per Day Smoking Cessation Date was No - quit smoking greater 04/19/24 15:04 within the last 15 years than 15 years ago Hx Smoking Cessation Date 09/08/1968 04/19/24 15:04 Hx Smoking Cessation Counseling Hematologic Medial History Hematologic Hx - boiling off winder: 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 Work Phone: 1(901) 190-285703-19-2025 Consult note Author Tl [facility] Note Date/Time April 26, 2024 9:4 9am [facility] Medical Records Department [address] [place] [address] Anesthesia Postop Eval I 04/26/24 0949 MR#: [id number] Acct: [id number] Name: YAS ROSA Rep #:[id number] : 1940 83 From: Tl JHAVERI PCP: Dr. Kwabena Menjivar MD Status :ADM IN Y Race: C Location: [address] Anesthesia: Postop Eval I Current Vital Signs [...] Tl Daniel CRNA> Date _ Tl Daniel PLANNING ASSOCIATE Cosigner Signature: Date CC: ~ Signed [facility] Work Phone: 1(268) 294-300303-19-2025 Progress note Author Ciro Diego [facility] Note Date/Time April 26, 2024 9:[address] [facility] Medical Records Department [address] [place] [address] Progress Note - Orthopedic 04/26/24 0945 MR#: [id number] Acct: [id number] Name: YAS ROSA Brigido Rep #:[id number] : 1940 83 From: Ciro Diego MD PCP: Dr. Kwabena Menjivar MD Status :ADM IN Location: [place] [address] Subjective Subjective Saw patient in preop. Reviewed [...] % (Auto) 62.4, Lymph % (Auto) 26.4, [place]% (Auto) 8.2, Eos % (Auto) 2.2, Baso % (Auto) 0.1, Absolute Neuts (auto) 5.4, Absolute Lymphs (auto) 2.30, Nucleated RBC % 0, Sodium 136, Potassium 4.5, Chloride 107, Carbon Dioxide 22.8, Anion Gap 6, BUN 20 H, Creatinine 0.83, EstimCreat Clear Calc 66.39, Est GFR (MDRD) Non-Af 87, BUN/Creatinine Ratio 23.4 H, Glucose 91, Calcium 8.2 Charges/Coding Visit Charges Inpatient E&M: 62977 Subs Hosp L1 04/26/24 0946 <Electronically signed by Ciro Diego MD> Cosigner Signature (if applicable): CC: ~ Signed [facility] Work Phone: 1(347) 676-885003-19-2025 Consult note [facility] Medical Records Department [address] [place] [address] Pre-Anesthesia Evaluation 04/26/24 1033 MR#: [id number] Acct: [id number] Name: YAS ROSA Rep #:[id number] : 1940 83 From: Tl JHAVERI PCP: Dr. Kwabena Menjivar MD Status :ADM IN Y Race: C Location: [address] ASA Classification* ASA Classification ASA Classification: 3 [...] ACDF C3-6 Anesthesia History Anesthesia History - boiling off winder: Anesthesia History - boiling off winder Hx Hospitalization No 03/08/24 08:44 Any Problems [...] take am of surgery PONV PONV - boiling off winder: PONV - boiling off winder Female HX of Motion Sickness HX of N/V After Surgery Non-Smoker Duration of Surgery greater than 60 minutes Number of Risk Factors PONV Score Height & Weight Height & Weight: Anesthesia: Height & Weight Height 5 ft 8 in 04/26/24 08:40 Weight: 75.6 kg 04/26/24 08:40 Body Mass Index (BMI) 25.3 04/26/24 08:40 Respiratory Assessment Respiratory Assessment - boiling off winder: Respiratory Tract Infection Hx - boiling off winder Hx Respiratory Tract Infection No 04/25/24 21:52 STOP Sleep Apnea STOP Sleep Apnea - boiling off winder: STOP Sleep Apnea - boiling off winder Hx Hypertension No 04/20/24 12:54 Hx Sleep [...] Tobacco Use History Tobacco Use History - boiling off winder: Tobacco Use History - boiling off winder Tobacco Use Smoking Status Former smoker 04/19/24 15:04 Hx Tobacco Use No 04/19/24 15:04 Years Smoking Packs Smoked per Day Smoking Cessation Date was No - quit smoking greater 04/19/24 15:04 within the last 15 years than 15 years ago Hx Smoking Cessation Date 09/08/1968 04/19/24 15:04 Hx Smoking Cessation Counseling Hematologic Medial History Hematologic Hx - boiling off winder: 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 04/26/24 1039 PLANNING ASSOCIATE> Date _ Tl Daniel PLANNING ASSOCIATE Cosigner Signature: Date CC: ~ Signed [facility]03-19-2025 Consult note [facility] Medical Records Department [address] [place] [address] Anesthesia Postop Eval I 04/26/24 0949 MR#: [id number] Acct: [id number] Name: YAS ROSA Brigido Rep #:[id number] : 1940 83 From: Tl JHAVERI PCP: Dr. Kwabena Menjivar MD Status :ADM IN Y Race: C Location: [place] [address] 07-09 Anesthesia: Postop Eval I Current Vital Signs Temperature: 97.4 F Pulse Rate: 67 Blood Pressure: 124/74 Respiratory Rate: 16 Pulse Ox: 98 Assessment Airway patent: Yes Spontaneous unlabored respirations: Yes nausea: No Vomiting: No Anesthesia Complication: No Fluid Hydration Crystalloid volume administer (ml): 1,500 Total IV fluid infused: 1,500 Progress Note Anesthesia document: Postop Eval 1 completed: Yes 04/26/24 0949 PLANNING ASSOCIATE> Date _ Tl María PLANNING ASSOCIATE Cosigner Signature: Date CC: ~ Signed [facility]03-19-2025 Progress note [facility] Medical Records Department [address] [place] [address] Progress Note - Orthopedic 04/26/2445 MR#: [id number] Acct: [id number] Name: YAS ROSA Brigido Rep #:[id number] : 1940 83 From: Ciro Diego MD PCP: Dr. Kwabena Menjivar MD Status :ADM IN Location: [place] [address] Subjective Subjective Saw patient in preop. Reviewed [...] % (Auto) 62.4, Lymph % (Auto) 26.4, [place]% (Auto) 8.2, Eos % (Auto) 2.2, Baso % (Auto) 0.1, Absolute Neuts (auto) 5.4, Absolute Lymphs (auto) 2.30, Nucleated RBC % 0, Sodium 136, Potassium 4.5, Chloride 107, Carbon Dioxide 22.8, Anion Gap 6, BUN 20 H, Creatinine 0.83, EstimCreat Clear Calc 66.39, Est GFR (MDRD) Non-Af 87, BUN/Creatinine Ratio 23.4 H, Glucose 91, Calcium 8.2 Charges/Coding Visit Charges Inpatient E&M: 81654 Subs Hosp L1 04/26/24 0946 Cosigner Signature (if applicable): CC: ~ Signed [facility]03-18-2025 Progress note Author Ana Rosa Howard [facility] Note Date/Time April 25, 2024 9:1 7pm [facility] Medical Records Department [address] [place] [address] Progress Note - Surgery 04/25/24 1432 MR#: [id number] Acct: [id number] Name: MOEYAS Brigido Rep #:[id number] : 1940 83 From: Ana Rosa Ruiz ll CHIEF COMMUNICATIONS OFFICER CHIEF COMMUNICATIONS OFFICER-C PCP: Dr. Kwabena Menjivar MD Status :ADM IN Location: [facility] [id number] <Statement entered by Yas Godinez MD [...] % (Auto) 60.4, Lymph % (Auto) 30.0, [place]% (Auto) 7.5, Eos % (Auto) 1.3, Baso [...] 1453 <Electronically signed by Ana Rosa Howard CHIEF COMMUNICATIONS OFFICER CHIEF COMMUNICATIONS OFFICER-C> Cosigner Signature (if applicable): 04/25/242116 <Electronically signed by Yas Godinez MD> CC: ~ Signed [facility] Work Phone: 1(837) 230-979103-18-2025 Progress note [facility] Medical Records Department [address] [place] [address] Progress Note - Surgery 04/25/24 1432 MR#: [id number] Acct: [id number] Name: MOEYAS Brigido Rep #:[id number] : 1940 83 From: Ana Rosa mccall CHIEF COMMUNICATIONS OFFICER CHIEF COMMUNICATIONS OFFICER-C PCP: Dr. Kwabena Menjivar MD Status :ADM IN Location: [place] [address] I have personally performed a face to [...] % (Auto) 60.4, Lymph % (Auto) 30.0, [place]% (Auto) 7.5, Eos % (Auto) 1.3, Baso [...] plan of care with Dr. Godinez. 04/25/24 7094 Cosigner Signature (if applicable): 04/25/24 3991 CC: ~ Signed [facility]03-18-2025 Progress note Author Harish Baxter [facility] Note Date/Time April 25, 2024 2:4 7pm [facility] Medical Records Department [address] [place] [address] Progress Note - Hospitalist 04/25/24 1441 MR#: [id number] Acct: [id number] Name: YAS ROSA Rep #:[id number] : 1940 83 From: Harish Schneider PCP: Dr. Kwabena Menjivar MD Status :ADM IN Location: [place] [address] Reason for Visit Reason for Visit: Diagnoses [...] % (Auto) 60.4, Lymph % (Auto) 30.0, [place]% (Auto) 7.5, Eos % (Auto) 1.3, Baso [...] with SCDs Charges/Coding Visit Charges Inpatient E&M: 62930 Subs Hosp L2 04/25/24 1447 <Electronically signed by Harish Baxter MD> Cosigner Signature (if applicable): CC: ~ Signed [facility] Work Phone: 1(950) 163-926603-18-2025 Progress note [facility] Medical Records Department [address] [place] [address] Progress Note - Hospitalist 04/25/24 1441 MR#: [id number] Acct: [id number] Name: YAS ROSA Rep #:[id number] : 1940 83 From: Harish Schneider PCP: Dr. Kwabena Menjivar MD Status :ADM IN Location: [place] [address] Reason for Visit Reason for Visit: Diagnoses [...] % (Auto) 60.4, Lymph % (Auto) 30.0, [place]% (Auto) 7.5, Eos % (Auto) 1.3, Baso [...] with SCDs Charges/Coding Visit Charges Inpatient E&M: 02355 Subs Hosp L2 04/25/24 5452 Cosigner Signature (if applicable): CC: ~ Signed [facility]03-18-2025 Progress note Author Ciro Diego [facility] Note Date/Time April 25, 2024 12: 04pm [facility] Medical Records Department [address] [place] [address] Progress Note - Orthopedic 04/25/24 1200 MR#: [id number] Acct: [id number] Name: YAS ROSA Rep #:[id number] : 1940 83 From: Ciro Diego MD PCP: Dr. Kwabena Menjivar MD Status :ADM IN Location: [place] [address] Subjective Subjective Surgery canceled yesterday due to [...] % (Auto) 60.4, Lymph % (Auto) 30.0, [place]% (Auto) 7.5, Eos % (Auto) 1.3, Baso [...] of upper extremity shows grade 1 finger chiropractic practice manager, grade 0 finger abduction, grade 4 [...] additional treatment. Charges/Coding Visit Charges Inpatient E&M: 49865 Subs Hosp L3 04/25/24 1204 <Electronically signed by Ciro Diego MD> Cosigner Signature (if applicable): CC: ~ Signed [facility] Work Phone: 1(642) 508-625403-18-2025 Progress note [facility] Medical Records Department [address] [place] [address] Progress Note - Orthopedic 04/25/24 1200 MR#: [id number] Acct: [id number] Name: YAS ROSA Rep #:[id number] : 1940 83 From: Ciro Diego MD PCP: Dr. Kwabena Menjivar MD Status :ADM IN Location: [place] [address] Subjective Subjective Surgery canceled yesterday due to [...] % (Auto) 60.4, Lymph % (Auto) 30.0, [place]% (Auto) 7.5, Eos % (Auto) 1.3, Baso [...] of upper extremity shows grade 1 finger chiropractic practice manager, grade 0 finger abduction, grade 4 [...] additional treatment. Charges/Coding Visit Charges Inpatient E&M: 86992 Subs Hosp L3 04/25/24 1204 Cosigner Signature (if applicable): CC: ~ Signed [facility]03-17-2025 Progress note Author Harish Baxter [facility] Note Date/Time April 24, 2024 2:1 8pm [facility] Medical Records Department [address] [place] [address] Progress Note - Hospitalist 04/24/24 0804 MR#: [id number] Acct: [id number] Name: YAS ROSA Rep #:[id number] : 1940 83 From: Harish Schneider PCP: Dr. Kwabena Menjivar MD Status :ADM IN Location: [place] [address] Reason for Visit Reason for Visit: Diagnoses [...] % (Auto) 60.3, Lymph % (Auto) 30.5, [place]% (Auto) 7.9, Eos % (Auto) 0.7, Baso [...] with SCDs Charges/Coding Visit Charges Inpatient E&M: 73883 Subs Hosp L2 04/24/24 1418 <Electronically signed by Harish Baxter MD> Cosigner Signature (if applicable): CC: ~ Signed [facility] Work Phone: 1(228) 809-919603-17-2025 Progress note [facility] Medical Records Department [address] [place] [address] Progress Note - Hospitalist 04/24/24 0804 MR#: [id number] Acct: [id number] Name: YAS ROSA Rep #:[id number] : 1940 83 From: Harish Schneider PCP: Dr. Kwabena Menjivar MD Status :ADM IN Location: [place] [address] Reason for Visit Reason for Visit: Diagnoses [...] % (Auto) 60.3, Lymph % (Auto) 30.5, [place]% (Auto) 7.9, Eos % (Auto) 0.7, Baso [...] with SCDs Charges/Coding Visit Charges Inpatient E&M: 48883 Subs Hosp L2 04/24/24 1418 Cosigner Signature (if applicable): CC: ~ Signed [facility]03-16-2025 Progress note Author Keanu Alfred [facility] Note Date/Time April 23, 2024 12: 42pm [facility] Medical Records Department [address] [place] [address] Progress Note - Hospitalist 04/23/24 0834 MR#: [id number] Acct: [id number] Name: MOEYAS Brigido Rep #:[id number] : 1940 83 From: Keanu Alfred DO PCP: Dr. Kwabena Menjivar MD Status :ADM IN Location: [place] [address] Reason for Visit Reason for Visit: Diagnoses [...] for discharge. Charges/Coding Visit Charges Inpatient E&M: 68735 Subs Hosp L2 04/23/24 1242 <Electronically signed by Keanu Alfred DO> Cosigner Signature (if applicable): CC: ~ Signed [facility] Work Phone: 1(856) 497-120103-16-2025 Progress note [facility] Medical Records Department [address] [place] [address] Progress Note - Hospitalist 04/23/24 0834 MR#: [id number] Acct: [id number] Name: YAS ROSA Rep #:[id number] : 1940 83 From: Keanu Alfred DO PCP: Dr. Kwabena Menjivar MD Status :ADM IN Location: [place] [address] 1 Reason for Visit Reason for Visit: [...] for discharge. Charges/Coding Visit Charges Inpatient E&M: 57491 Subs Hosp L2 04/23/24 1242 Cosigner Signature (if applicable): CC: ~ Signed [facility]03-15-2025 Progress note Author Keanu Alfred [facility] Note Date/Time April 22, 2024 1:2 1pm [facility] Medical Records Department [address] [place] [address] Progress Note - Hospitalist 04/22/24 0851 MR#: [id number] Acct: [id number] Name: YAS ROSA Rep #:[id number] : 1940 83 From: Keanu Alfred DO PCP: Dr. Kwabena Menjivar MD Status :ADM IN Location: [place] [address] Reason for Visit Reason for Visit: Diagnoses [...] for discharge. Charges/Coding Visit Charges Inpatient E&M: 24847 Subs Hosp L2 04/22/24 1324 <Electronically signed by Keanu Alfred DO> Cosigner Signature (if applicable): CC: ~ Signed [facility] Work Phone: 1(529) 301-359803-15-2025 Progress note [facility] Medical Records Department [address] [place] [address] Progress Note - Hospitalist 04/22/24 0851 MR#: [id number] Acct: [id number] Name: YAS ROSA Rep #:[id number] : 1940 83 From: Keanu Alfred DO PCP: Dr. Kwabena Menjivar MD Status :ADM IN Location: [place] [address]- Reason for Visit Reason for Visit: Diagnoses [...] for discharge. Charges/Coding Visit Charges Inpatient E&M: 11704 Subs Hosp L2 04/22/24 1321 Cosigner Signature (if applicable): CC: ~ Signed [facility]03-14-2025 Consult note Author Ciro Diego [facility] Note Date/Time April 21, 2024 4:3 2pm [facility] Medical Records Department [address] [place] [address] Consultation - Orthopedics 04/21/24 1621 MR#: [id number] Acct: [id number] Name: YAS ROSA Rep #:[id number] : 1940 83 From: Ciro Diego MD PCP: Dr. Kwabena Menjivar MD Status :[facility] H[facility] Consult Data Date of [...] being independently ambulatory. [facility] Medical History Anxiety Irritable bowel syndrome with [...] of upper extremity shows grade 0 finger chiropractic practice manager, grade 0 finger abduction, grade 4 [...] in agreement. Charges/Coding Visit Charges Inpatient E&M: 62172 Init Hosp L3 04/21/24 6279 <Electronically signed by Ciro Diego MD> Cosigner Signature (if applicable): CC: Dr. Kwabena Menjivar MD; Dr. Keanu Alfred DO~ Signed [facility] Work Phone: 1(259) 838-699703-14-2025 Consult note [facility] Medical Records Department [address] [place] [address] Consultation - Orthopedics 04/21/24 1621 MR#: [id number] Acct: [id number] Name: YAS ROSA Rep #:[id number] : 1940 83 From: Ciro Diego MD PCP: Dr. Kwabena Menjivar MD Status :ADM IN Location: [place] [address] HPI Consult Data Date of Consult: 04/21/24 [...] being independently ambulatory. [facility] Medical History Anxiety Irritable bowel syndrome with [...] of upper extremity shows grade 0 finger chiropractic practice manager, grade 0 finger abduction, grade 4 [...] in agreement. Charges/Coding Visit Charges Inpatient E&M: 44353 Init Hosp L3 04/21/24 1632 Cosigner Signature (if applicable): CC: Dr. Kwabena Menjivar MD; Dr. Keanu Alfred DO~ Signed [facility]03-14-2025 Progress note Author Keanu Alfred [facility] Note Date/Time April 21, 2024 1:5 7pm [facility] Medical Records Department [address] [facility] [place] [address] Progress Note - Hospitalist 04/21/24 0830 MR#: [id number] Acct: [id number] Name: YAS ROSA Brigido Rep #:[id number] : 1940 83 From: Keanu Alfred DO PCP: Dr. Kwabena Menjivar MD Status :ADM IN Location: [place] [address] Reason for Visit Reason for Visit: Diagnoses [...] with SCDs Charges/Coding Visit Charges Inpatient E&M: 63476 Subs Hosp L2 04/21/24 7982 <Electronically signed by Keanu Alfred DO> Cosigner Signature (if applicable): CC: ~ Signed [facility] Work Phone: 1(916) 511-372703-14-2025 Progress note [facility] Medical Records Department [address] [place] [address] Progress Note - Hospitalist 04/21/24 0830 MR#: [id number] Acct: [id number] Name: YAS ROSA Rep #:[id number] : 1940 83 From: Keanu Alfred DO PCP: Dr. Kwabena Menjivar MD Status :ADM IN Location: [place] [address] Reason for Visit Reason for Visit: Diagnoses [...] Referring Physician: Kwabena Menjivar Performed By: Melida Child RDCS, RVT Physical Exam Const alert and [...] with SCDs Charges/Coding Visit Charges Inpatient E&M: 20924 Subs Hosp L2 04/21/24 9770 Cosigner Signature (if applicable): CC: ~ Signed [facility]03-13-2025 Progress note Author Keanu Alfred [facility] Note Date/Time April 20, 2024 1:[address] [facility] Medical Records Department [address] [place] [address] Progress Note - Hospitalist 04/20/24 0752 MR#: [id number] Acct: [id number] Name: YAS ROSA Rep #:[id number] : 1940 83 From: Keanu Alfred DO PCP: Dr. Kwabena Menjivar MD Status :[facility]M [facility] Reason for Visit Reason for Visit: [...] 83.7 H, Lymph % (Auto) 9.8 L, [place] % (Auto) 5.7, Eos % (Auto) 0.0, [...] (Auto) 73.5 H, Lymph % (Auto) 17.6L, [place] % (Auto) 8.4, Eos % (Auto) 0.1, [...] use of iterative reconstruction technique). Reading Location: [facility]- Facial/Sinus 04/19/24 10:42 IMPRESSION: Mildly depressed fracture [...] use of iterative reconstruction technique). Reading Location: [facility]-1 Head/Neck CTA 04/19/24 10:54 IMPRESSION: RIGHT CAROTID: Unremarkable LEFT CAROTID: Minimal plaque at the origin of the left internal carotid artery. VERTEBRALS: Unremarkable INTRACRANIAL: Unremarkable. One or more dose reduction techniques were used (e.g., Automated exposure control, adjustment of the mA and/or kV according to patient size, use of iterative reconstruction technique). Reading Location: [facility]--1 Chest X-Ray 04/19/24 11:20 IMPRESSION: [...] on recent facial bone CT. Reading [facility] Cervical Spine MRI 04/19/24 15:02 IMPRESSION: 1. 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 2. Acquired mild to severe multilevel foraminal narrowing. See level by level comments above. 3. 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 Reading [facility] Physical Exam Const alert and no apparent [...] with SCDs Charges/Coding Visit Charges Inpatient E&M: 87122 Subs Hosp L2 04/20/24 1257 <Electronically signed [...] doing CPR be futile. Procedures Hospitalists Procedures: 75174 Advncd Care Plan 30 Min 04/20/24 1357<Electronically signed by Keanu Alfred DO> Cosigner Signature (if applicable): cc: ~* Signed [facility] Work Phone: 1(192) 833-982303-13-2025 Evaluation note* Diagnosis Onset Date Resolution Status [...] 12:54pm Hypertension chronic April 20, 2024 12:54pm [facility] Work Phone: 1(481) 327-333403-13-2025 Evaluation note* Diagnosis Onset Date Resolution Status [...] Az 2024 3:15pm Urinary tract infection acute [facility] 2024 3:15pm Urine retention acute April 3:15pm Anxiety and depression chronic [facility] 2024 3:15pm Bilateral arm weakness chronic [facility] 2024 3:15pm Cervical cord myelomalacia chronic [...] Cervical myelopathy inactive April 27, 2024 3:15pm [facility] Work Phone: 1(725) 865-966203-13-2025 Evaluation note* Diagnosis Onset Date Resolution Status [...] April 27, 2024 3:15pm Orthostatic hypotension acute [facility] 2024 3:15pm Osteoarthritis acute April 3:15pm Severe dehydration acute April 27, 2024 3:15pm Status post cervical spinal fusion acute April 27, 2024 3:15pm Traumatic brain injury with loss of consciousness acute April 27 3:15pm Urinary incontinence acute [facility] 2024 3:15pm Urine retention acute April 3:15pm Anxiety and depression chronic [facility] 2024 3:15pm Bilateral arm weakness chronic [facility] 2024 3:15pm Chronic left shoulder pain chronic April 27, 2024 3:15pm GERD with esophagitis chronic [facility] 2024 3:15pm History of IBS chronic April [...] resolved April 3:15pm Left maxillary fracture resolved [facility] 2024 3:15pm Multiple falls resolved April 3:15pm Urinary tract infection resolved [facility] 2024 3:15pm Cervical myelopathy inactive April 27, 2024 3:15pm Constipation acute May 25, 2024 12:30pm Fecal incontinence acute May 25, 2024 12:30pm [facility] Work Phone: 1(716) 932-930303-13-2025 Evaluation note* Diagnosis Onset Date Resolution Status [...] 27, 2024 3:15pm Orthostatic hypotension acute [facility] 2024 3:15pm Osteoarthritis acute April 3:15pm Severe dehydration acute April 27, 2024 3:15pm Status post cervical spinal fusion acute April 27, 2024 3:15pm Traumatic brain injury with loss of consciousness acute April 27 3:15pm Urinary incontinence acute [facility] 2024 3:15pm Urine retention acute April 3:15pm Anxiety and depression chronic [facility] 2024 3:15pm Bilateral arm weakness chronic [facility] 2024 3:15pm Chronic left shoulder pain chronic April 27, 2024 3:15pm GERD with esophagitis chronic [facility] 2024 3:15pm History of IBS chronic April [...] Cervical myelopathy inactive June 01, 2024 3:28pm [facility] Work Phone: 1(530) 158-565703-13-2025 Evaluation note* Diagnosis Onset Date Resolution Status [...] April 3:15pm Anxiety and depression chronic [facility] 2024 3:15pm Bilateral arm weakness chronic [facility] 2024 3:15pm Chronic left shoulder pain chronic [...] April 3:15pm Left maxillary fracture resolved [facility] 2024 3:15pm Multiple falls resolved April 3:15pm Urinary tract infection resolved [facility] 2024 3:15pm Cervical myelopathy inactive April 27, [...] Orthostatic lightheadedness acute August 05, 2024 3:43pm [facility] Work Phone: 1(927) 767-526203-13-2025 Evaluation note* Diagnosis Onset Date Resolution Status [...] 27, 2024 3:15pm Orthostatic hypotension acute [facility] 2024 3:15pm Osteoarthritis acute April 3:15pm Severe dehydration acute April 27, 2024 3:15pm Status post cervical spinal fusion acute April 27, 2024 3:15pm Traumatic brain injury with loss of consciousness acute April 27 3:15pm Urinary incontinence acute [facility] 2024 3:15pm Urine retention acute April 3:15pm Anxiety and depression chronic [facility] 2024 3:15pm Bilateral arm weakness chronic [facility] 2024 3:15pm Chronic left shoulder pain chronic April 27, 2024 3:15pm GERD with esophagitis chronic [facility] 2024 3:15pm History of IBS chronic April [...] Orthostatic lightheadedness acute August 06, 2024 1:22pm [facility] Work Phone: 1(653) 517-126703-13-2025 Evaluation note* Diagnosis Onset Date Resolution Status [...] acute April 3:15pm Anxiety and depression chronic [facility] 2024 3:15pm Bilateral arm weakness chronic [facility] 2024 3:15pm Chronic left shoulder pain chronic April 27, 2024 3:15pm GERD with esophagitis chronic [facility] 2024 3:15pm History of IBS chronic April [...] April 3:15pm Left maxillary fracture resolved [facility] 2024 3:15pm Multiple falls resolved April 3:15pm Urinary tract infection resolved [facility] 2024 3:15pm Cervical myelopathy inactive April 27, [...] Orthostatic lightheadedness resolved August 06, 2024 1:22pm [facility] Work Phone: 1(376) 235-827203-13-2025 Progress note [facility] Medical Records Department [facility] [address] [place] [address] Progress Note - Hospitalist 04/20/24 0752 MR#: [id number] Acct: [id number] Name: YAS ROSA Rep #:[id number] : 1940 83 From: Keanu Alfred DO PCP: Dr. Kwabena Menjivar MD Status :ADM IN Location: [place] [address] Reason for Visit Reason for Visit: Diagnoses [...] 83.7 H, Lymph % (Auto) 9.8 L, [place] % (Auto) 5.7, Eos % (Auto) 0.0, [...] (Auto) 73.5 H, Lymph % (Auto) 17.6L, [place] % (Auto) 8.4, Eos % (Auto) 0.1, [...] use of iterative reconstruction technique). Reading Location: [facility]--1 Facial/Sinus 04/19/24 10:42 IMPRESSION: Mildly [...] use of iterative reconstruction technique). Reading Location: [facility]--1 Head/Neck CTA 04/19/24 10:54 IMPRESSION: RIGHT CAROTID: Unremarkable LEFT CAROTID: Minimal plaque at the origin of the left internal carotid artery. VERTEBRALS: Unremarkable INTRACRANIAL: Unremarkable. One or more dose reduction techniques were used (e.g., Automated exposure control, adjustment of the mA and/or kV according to patient size, use of iterative reconstruction technique). Reading Location: [facility]--1 Chest X-Ray 04/19/24 11:20 IMPRESSION: 1. No visible acute cardiopulmonary findings. 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 Consider outpatient CT chest. 2. Additional description as above. Reading Location: [id number] Brain MRI 04/19/24 15:02 IMPRESSION: 1. No acute intracranial abnormality, specifically no evidence of acute ischemia. 2. Mild atrophy and chronic small-vessel ischemic changes. 3. Acute left facial bone fractures better seen and described on recent facial bone CT. Reading Location: [facility] Cervical Spine MRI 04/19/24 15:02 IMPRESSION: 1. [...] with SCDs Charges/Coding Visit Charges Inpatient E&M: 00644 Subs Hosp L2 04/20/24 1257 Cosigner Signature [...] doing CPR be futile. Procedures Hospitalists Procedures: 62777 Advncd Care Plan 30 Min 04/20/24 1357 Cosigner Signature (if applicable): cc: ~* Signed [facility]03-12-2025 Discharge summary Author Laureano Gallagher [facility] Note Date/Time April 19, 2024 3:2 7pm [facility] Medical Records Department [address] [place] [address] Emergency Department Summary 04/19/24 MR#: [id number] Acct: [id number] Name: YSA ROSA Rep #:[id number] : 1940 83 From: Laureano Colby PCP: Dr. Kwabena Menjivar MD Status :ADM IRINA Location: [place] [address] HPI History of Present Illness Chief Complaint: [...] headache. He does admit to neck pain. [facility] Medical History Irritable bowel syndrome with diarrhea [...] 83.7 H Lymph % (Auto) 9.8 L [place] % (Auto) 5.7 Eos % (Auto) 0.0 [...] use of iterative reconstruction technique). Reading Location: [facility]-1 Facial/Sinus 04/19/24 10:42 IMPRESSION: Mildly [...] use of iterative reconstruction technique). Reading Location: [facility]-1 Head/Neck CTA 04/19/24 10:54 IMPRESSION: RIGHT CAROTID: Unremarkable LEFT CAROTID: Minimal plaque at the origin of the left internal carotid artery. VERTEBRALS: Unremarkable INTRACRANIAL: Unremarkable. One or more dose reduction techniques were used (e.g., Automated exposure control, adjustment of the mA and/or kV according to patient size, use of iterative reconstruction technique). Reading Location: [facility]-1 Chest X-Ray 04/19/24 11:20 IMPRESSION: 1. No visible acute cardiopulmonary findings. 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 Consider outpatient CT chest. 2. Additional description as above. Reading Location: [facility] EKG Initial EKG: Attestation: I personally reviewed and interpreted this EKG as follows: Comments: Normal sinus rhythm ventricular rate of 69 bpm Management Discussion w/another healthcare provider: Hospitalist (Dr Alfred) and Patient Office Rep (Dr Godinez) Discharge Plan Dx/Rx/DC Orders Clinical Impression: Fall, Closed fracture of left maxillary sinus, Epistaxis, Chronic left shoulderpain, Hypertension, Subconjunctival hemorrhage Disposition Disposition: Acute Care Hospital [facility] NIHSS NIHSS 1a. Level of Consciousness: [...] your Primary Care Provider. Call [facility] ([phone]) or report to the closest Emergency Room. Call 911 if necessary. 04/19/24 1527 <Electronically signed by Laureano Gallagher DO> Cosigner Signature (if applicable): CC: Dr. Kwabena Menjivar MD ~ Signed [facility] Work Phone: 1(847) 430-591203-12-2025 Consult note Author Yas Godinez [facility] Note Date/Time April 19, 2024 3:1 8pm [facility] Medical Records Department [address] [place] [address] Consultation - Surgical 04/19/24 1140 MR#: [id number] Acct: [id number] Name: YAS ROSA Rep #:[id number] : 1940 83 From: Yas Godinez MD PCP: Dr. Kwabena Menjivar MD Status :ADM IRINA Location: [place] [address] Assessment & Plan Assessment/Plan (1) Maxillary fracture, [...] a few weeks ago with another fall. [facility] Medical History Anxiety Irritable bowel syndrome [...] 83.7 H, Lymph % (Auto) 9.8 L, [place] % (Auto) 5.7, Eos % (Auto) 0.0, [...] use of iterative reconstruction technique). Reading Location: [facility]-1 Facial/Sinus 04/19/24 10:42 IMPRESSION: Mildly [...] use of iterative reconstruction technique). Reading Location: [facility]-1 Head/Neck CTA 04/19/24 10:54 IMPRESSION: RIGHT CAROTID: Unremarkable LEFT CAROTID: Minimal plaque at the origin of the left internal carotid artery. VERTEBRALS: Unremarkable INTRACRANIAL: Unremarkable. One or more dose reduction techniques were used (e.g., Automated exposure control, adjustment of the mA and/or kV according to patient size, use of iterative reconstruction technique). Reading Location: [facility]-1 Chest X-Ray 04/19/24 11:20 IMPRESSION: 1. No visible acute cardiopulmonary findings. 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 Consider outpatient CT chest. 2. Additional description as above. Reading Location: [id number] Charges/Coding Multi Select Codes Visit Charges Office Visit/Consults: 65006 OV L5 New 60min 04/19/24 1518 <Electronically signed by Yas Godinez MD> Cosigner Signature (if applicable): CC: Dr. Kwabena Menjivar MD~ Signed [facility] Work Phone: 1(800) 722-169403-12-2025 History and physical note Author Keanu Alfred [facility] Note Date/Time April 19, 2024 2:0 4pm [facility] Medical Records Department [address] [place] [address] H&P Exam - Hospitalist 04/19/24 1323 MR#: [id number] Acct: [id number] Name: YAS ROSA Rep #:[id number] : 1940 83 From: Keanu Alfred DO PCP: Dr. Kwabena Menjivar MD Status :ADM IRINA Location: [place] [address] HPI - General General Date of Admission: [...] the surgeon yet. [facility] Medical History (Updated 04/19/24 @ 13:32 by [...] 83.7 H, Lymph % (Auto) 9.8 L, [place] % (Auto) 5.7, Eos % (Auto) 0.0, [...] use of iterative reconstruction technique). Reading Location: [facility]-1 Facial/Sinus 04/19/24 10:42 IMPRESSION: Mildly [...] use of iterative reconstruction technique). Reading Location: [facility]-1 Head/Neck CTA 04/19/24 10:54 IMPRESSION: RIGHT CAROTID: Unremarkable LEFT CAROTID: Minimal plaque at the origin of the left internal carotid artery. VERTEBRALS: Unremarkable INTRACRANIAL: Unremarkable. One or more dose reduction techniques were used (e.g., Automated exposure control, adjustment of the mA and/or kV according to patient size, use of iterative reconstruction technique). Reading Location: [facility] Chest X-Ray 04/19/24 11:20 IMPRESSION: 1. No visible acute cardiopulmonary findings. 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 Consider outpatient CT chest. 2. Additional description as above. Reading Location: [facility] Assessment & Plan Assessment/Plan (1) Syncope: [...] until Wednesday. Charges/Coding Visit Charges Inpatient E&M: 43102 Init Hosp L3 04/19/24 1404 <Electronically signed by Keanu Alfred DO> Cosigner Signature (if applicable): CC: Dr. Kwabena Menjivar MD; Dr. Keanu Alfred DO~ Signed [facility] Work Phone: 1(451) 284-466803-12-2025 Discharge summary [facility] Medical Records Department [address] [place] [address] Emergency Department Summary 04/19/24 MR#: [id number] Acct: [id number] Name: YAS ROSA Rep #:[id number] : 1940 83 From: Laureano Colby PCP: Dr. Kwabena Menjivar MD Status :ADM IRINA Location: [place] [address] HPI History of Present Illness Chief Complaint: [...] 83.7 H Lymph % (Auto) 9.8 L [place] % (Auto) 5.7 Eos % (Auto) 0.0 [...] use of iterative reconstruction technique). Reading Location: [facility]-1 Facial/Sinus 04/19/24 10:42 IMPRESSION: Mildly [...] use of iterative reconstruction technique). Reading Location: [facility] Head/Neck CTA 04/19/24 10:54 IMPRESSION: RIGHT CAROTID: Unremarkable LEFT CAROTID: Minimal plaque at the origin of the left internal carotid artery. VERTEBRALS: Unremarkable INTRACRANIAL: Unremarkable. One or more dose reduction techniques were used (e.g., Automated exposure control, adjustment of the mA and/or kV according to patient size, use of iterative reconstruction technique). Reading Location: [facility] Chest X-Ray 04/19/24 11:20 IMPRESSION: 1. No visible acute cardiopulmonary findings. 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 Consider outpatient CT chest. 2. Additional description as above. Reading Location: [facility] EKG Initial EKG: Attestation: I personally reviewed and interpreted this EKG as follows: Comments: Normal sinus rhythm ventricular rate of 69 bpm Management Discussion w/another healthcare provider: Hospitalist (Dr Alfred) and Patient Office Rep (Dr Godinez) Discharge Plan Dx/Rx/DC Orders Clinical Impression: Fall, Closed fracture of left maxillary sinus, Epistaxis, Chronic left shoulderpain, Hypertension, Subconjunctival hemorrhage Disposition Disposition: Acute Care Hospital [facility] NIHSS NIHSS 1a. Level of Consciousness: [...] your Primary Care Provider. Call [facility] ([phone]) or report tothe closest Emergency Room. Call 911 if necessary. 04/19/24 1527 Cosigner Signature (if applicable): CC: Dr. Kwabena Menjivar MD ~ Signed [facility]03-12-2025 Consult note [facility] Medical Records Department [address] [place] [address] Consultation - Surgical 04/19/24 1140 MR#: [id number] Acct: [id number] Name: YAS ROSA Rep #:[id number] : 1940 83 From: Yas Godinez MD PCP: Dr. Kwabena Menjivar MD Status :ADM IRINA Location: [place] [address] Assessment & Plan Assessment/Plan (1) Maxillary fracture, [...] with another fall. [facility] Medical History Anxiety Irritable bowel syndrome with [...] 83.7 H, Lymph % (Auto) 9.8 L, [place] % (Auto) 5.7, Eos % (Auto) 0.0, [...] use of iterative reconstruction technique). Reading Location: [facility]-1 Facial/Sinus 04/19/24 10:42 IMPRESSION: Mildly depressed fracture [...] use of iterative reconstruction technique). Reading Location: [place] [address] Head/Neck CTA 04/19/24 10:54 IMPRESSION: RIGHT CAROTID: Unremarkable LEFT CAROTID: Minimal plaque at the origin of the left internal carotid artery. VERTEBRALS: Unremarkable INTRACRANIAL: Unremarkable. One or more dose reduction techniques were used (e.g., Automated exposure control, adjustment of the mA and/or kV according to patient size, use of iterative reconstruction technique). Reading Location: [place] [address] Chest X-Ray 04/19/24 11:20 IMPRESSION: 1. No visible acute cardiopulmonary findings. 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 Consider outpatient CT chest. 2. Additional description as above. Reading Location: [id number] Charges/Coding Multi Select Codes Visit Charges Office Visit/Consults: 08389 OV L5 New 60min 04/19/24 1518 Cosigner Signature (if applicable): CC: Dr. Kwabena Menjivar MD~ Signed [facility]03-12-2025 History and physical note [facility] Medical Records Department [address] [place] [address] H&P Exam - Hospitalist 04/19/24 1323 MR#: [id number] Acct: [id number] Name: YAS ROSA Rep #:[id number] : 1940 83 From: Keanu Alfred DO PCP: Dr. Kwabena Menjivar MD Status :ADM IRINA Location: [place] [address]- 1 HPI - General General Date of [...] the surgeon yet. [facility] Medical History (Updated 04/19/24 @ 13:32 by [...] 83.7 H, Lymph % (Auto) 9.8 L, [place] % (Auto) 5.7, Eos % (Auto) 0.0, [...] use of iterative reconstruction technique). Reading Location: [facility]-1 Head/Neck CTA 04/19/24 10:54 IMPRESSION: RIGHT CAROTID: Unremarkable LEFT CAROTID: Minimal plaque at the origin of the left internal carotid artery. VERTEBRALS: Unremarkable INTRACRANIAL: Unremarkable. One or more dose reduction techniques were used (e.g., Automated exposure control, adjustment of the mA and/or kV according to patient size, use of iterative reconstruction technique). Reading Location: [facility]--1 Chest X-Ray 04/19/24 11:20 IMPRESSION: 1. No visible acute cardiopulmonary findings. 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 Consider outpatient CT chest. 2. Additional description as above. Reading Location: [facility] Assessment & Plan Assessment/Plan (1) Syncope: [...] until Wednesday. Charges/Coding Visit Charges Inpatient E&M: 21560 Init Hosp L3 04/19/24 1404 Cosigner Signature (if applicable): CC: Dr. Kwabena Menjivar MD; Dr. Keanu Alfred DO~ Signed [facility]03-12-2025 Radiology Diagnostic study note [facility] Imaging Services [address] [place], [place] [address] Chest 1 View MR#: [id number] Acct: [id number] Name: YAS ROSA Rep #: [id number] : 1940 M 83 From: Aura Andersen MD PCP: Dr. Kwabena Menjivar MD Status: REG ER Study:Chest 1 View Date of Exam: 5 Exam# [id number] Ordering Dr: Jennie Gallagher DO PROCEDURE: CHEST [...] 2. Additional description as above. Reading Location: [id number] CC: Dr. Kwabena Menjivar MD; Dr. Laureano Gallagher DO ~ Mining Speculator: Signed [facility]03-12-2025 Radiology Diagnostic study note [facility] Imaging Services [address] [place], [place] [address] STROKE CTA Head AND Neck W/Con MR#: [id number] Acct: [id number] Name: YAS ROSA Rep #: [id number] : 1940 M 83 From: Ag Luna MD PCP: Dr. Kwabena Menjivar MD Status: REG ER Study:STROKE CTA Head AND Neck W/Con Date of Exam: 04/19/24 Exam# [id number] Ordering Dr: Jennie Gallagher DO PROCEDURE: STROKE [...] use of iterative reconstruction technique). Reading Location: [place] [address] CC: Dr. Kwabena Menjivar MD; Dr. Laureano Gallagher DO ~ Mining Speculator: Signed [facility]03-12-2025 Radiology Diagnostic study note [facility] Imaging Services [address] [facility] [facility] [place] [address] Sinus/Facial Bone MR#: [id number] Acct: [id number] Name: YAS ROSA Rep #: [id number] : 1940 83 From: Ag Luna MD PCP: Dr. Kwabena Menjivar MD Status: REG ER Study:Sinus/Facial Bone Date of Exam: Exam# [id number] Ordering Dr: Jennie Gallagher DO PROCEDURE: SINUS/FACIAL [...] use of iterative reconstruction technique). Reading Location: [place] [address] CC: Dr. Kwabena Menjivar MD; Dr. Laureano Gallagher DO ~ Mining Speculator: Signed [facility]03-12-2025 Radiology Diagnostic study note [facility] Imaging Services [address] [place], [place] [address] STROKE Brain/Head without Cont MR#: [id number] Acct: [id number] Name: YAS ROSA Rep #: [id number] : 1940 M 83 From: Ag Luna MD PCP: Dr. Kwabena Menjivar MD Status: REG ER Study:STROKE Brain/Head without Cont Date of Exam: 04/19/24 Exam# [id number] Ordering Dr: Jennie Gallagher DO PROCEDURE: STROKE [...] use of iterative reconstruction technique). Reading Location: [place] [address] CC: Dr. Kwabena Menjivar MD; Dr. Laureano Gallagher, DO ~ Mining Speculator: Signed [facility]09-06-2023 Discharge summary Author Keanu Holt [facility] October 14, 2022 10:45am Note Date/Time October 14, [address] [facility] Physical Therapy [facility] [address] [place] [address] / REHABILITATION SERVICES DISCHARGE SUMMARY MR#: [id number] Acct: [id number] Name: YAS ROSA Rep #: [id number] : 1940 81 From: Keanu Holt DPT, [...] please feel free to call me at [phone]. Thank you for the referral of thispatient. Sincerely, Keanu Holt, ROCHELLE, OCS, CSCS Balance/Gait/Functional tests Balance/Special Test Scores Oswestry Neck Score: 31 Quick DASH Score: 38.6350 Improvement % Improvement: 10 <Electronically signed by Keanu Holt DPT, GINA, CSCS> 10/14/22 1045 CC: Dr. William Menjivar MD ~ EBG Signed [facility] Work Phone: Discharge summary Author Harish Baxter [facility] Note Date/Time April 27, 2024 1:5 7pm [facility] Medical Records Department [address] [place] [address] Discharge Summary 04/27/24 1353 MR#: [id number] Acct: [id number] Name: YAS ROSA Rep #:[id number] : 1940 83 From: Harish Schneider PCP: Dr. Kwabena Menjivar MD Status :ADM IN Location: [facility] [id number] Providers Date of Admission: 04/20/24 Date [...] H11.30 - Conjunctival hemorrhage, unspecified eye Plan: 2/ to fall. Visual andrews intact, PERRL, [...] (Auto) 78.8 H, Lymph % (Auto) 14.3L, [place] % (Auto) 5.8, Eos % (Auto) 0.0, [...] fluoroscopic images were also obtained. Reading Location: [address] Cervical Spine X-Ray 04/26/24 11:05 IMPRESSION: Intraoperative fluoroscopy performed for anterior cervical discectomy and fusionsurgery. 10 fluoroscopic images were also obtained. Reading Location: [id number] Cervical Spine X-Ray 04/27/24 07:00 IMPRESSION: Osteopenia. Interval placement of a metallic fixation plate at the anterior margin of C3-C6. Interval placement of interbody spacer devices at C3-4, C4-5, and C5-6. No acute bony abnormality of the cervical spine. Similar moderate/severe degenerative disc disease at C6-7. [facility] Discharge Diet: Light diet - [...] Self Care Charges/Coding Visit Charges Inpatient E&M: 91680 Disch Hosp >30min 04/27/24 1067 <Electronically signed by Harish Baxter MD> Cosigner Signature (if applicable): CC: Dr. Kwabena Menjivar MD; Dr. Harish Baxter MD~ Signed [facility] Work Phone: Discharge summary Author Jacoby Mendoza [facility] Note Date/Time August 09, 2024 12:50 pm [facility] Medical Records Department [address] [place] [address] Transfer to [facility] MR#: [id number] Acct: [id number] Name: YAS ROSA Rep #:[id number] : 1940 83 From: Jacoby Mendoza MD PCP: Dr. Kwabena Menjivar MD Status :ADM IN Certification of patient admission REQUIRED AT TIME OF ADMISSION. I CERTIFY THAT POST-HOSPITAL ECF SERVICES ARE REQUIRED TO BE GIVEN ON AN IN-PATIENT BASIS BECAUSE OF THE ABOVE NAMED PATIENT'S NEED FOR RESIDENTIAL CARE ON A CONTINUING BASIS FOR THE CONDITION(S) FOR WHICH HE/SHE WAS RECEIVING IN-PATIENT HOSPITAL SERVICES PRIOR TO HIS/HER TRANSFER TO THE F. 08/09/24 0829<Electronically signed by Jacoby Mendoza MD> [...] ? Requested for PT OT eval and hospital social worker to assist with discharge planning. 08/09/2024; patient [...] Recommendations/Changes: Continue Regular diet with texture/consistency per PARTS MANAGER to optimize oral intakes. Will order 120mL [...] in before D/C Order can be placed): [facility] 08/09/24 0829 <Electronically signed by Jacoby Mendoza MD> Cosigner Signature (if applicable): CC: Dr. Kwabena Menjivar MD; Dr. Keanu Collier DO; Dr. Yu Bradley MD ~ [facility] Work Phone: Discharge summary Author Buckagatha Rome [facility] Note Date/Time October 18, 2024 3:[address] [place] [address] System Medical Records Department [address] [place] [address] Emergency Department Summary 10/18/24 MR#: [id number] Acct: [id number] Name: YAS ROSA Rep #:[id number] : 1940 83 From: Buck Rome MD PCP: Dr. Kwabena Menjivar MD Status :REG ER Location: ED HPI History of Present Illness Chief Complaint: Weakness Detail of Chief Complaint: 3 near syncopal episodes over the past 24 hours Informant: patient and spouse/S.O. Onset/Context/Timing Onset: Today (X 2) and Yesterday (X 1) Context: Sudden Onset Timing: Intermittent Quality: Becomes lightheaded when he urinates. Location: Restroom Current Severity: Gone Maximum Severity: Severe Worsened by: Urination Relieved by: Not applicable Associated Symptoms Associated Symptoms: Feels lightheaded and detailed HPI narrative Narrative Narrative: Patient is an 83-year-old male who presents from home. He has daily nursing help. He presently resides with his significant other. His significant other is his ex- . He had near sickle cell yesterday while urinating and 2 episodes today. He sits when he urinates. He was found on the floor today x 2. He does endorse thirst dry mouth and lightheadedness. He denies fever, chills night sweats. He reports that he is eating well. Significant other states he is not eating well and he is not drinking a lot of fluids. He denies chest pain, pressure tightness heaviness. He denies difficulty breathing or shortness of breath. He denies nausea, vomiting or diarrhea. He denies pain or any other symptoms prior to the syncopal sewed. He was not noted to be pale and he did not become sweaty. He did not strain to urinate. He has a history of generalized weakness, GERD, benign paroxysmal positional vertigo, postural dizziness with near syncope, anxiety and depression and reported ventral hernia. 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 Patient had no change in his medication. He does take midodrine when his systolic pressure is less than 120. His pressures were checked when this occurred and they were not low per patient. Prior similar symptoms: Yes Recent Illness/Hospitalization: No PFSH PFS Medical History Cervical myelopathy Angiectasia of large [...] Rx 50 mg tablet (Stimulant Laxative Plus) midodrine 5 mg tablet 10 mg (2 x 5 mg) PO 0700,110 0,1500 05/18/24 Unknown Rx #0 tabs mirtazapine 15 mg tablet 15 mg PO QHS #0 tabs 5 Unknown Rx pantoprazole 40 mg tablet,delayed 40 mg PO BID #0 tabs 05/18/24 Unknown Rx release bupropion HCl 150 mg 24 hr tablet, 150 mg PO DAILY dep ression 08/05/24 Unknown History extended release acetaminophen 325 mg tablet 650 mg (2 x 325 mg) PO Q6H PRN PRN 08/09/24 Unknown Rx Pain 1-10 Or Fever >100.7 #0 tabs albuterol sulfate 2.5 mg/3 mL 2.5 mg (3 mL) inhalation Q2H PRN 08/09/24 Unknown Rx (0.083 %) solution for nebulization PRN SOB &/OR WHEEZ ING #0 mL duloxetine 30 mg capsule,delayed 30 mg PO DAILY #0 cap s 08/09/24 Unknown Rx release food supplemt, lactose-reduced 120 ml PO 4X/DAY #0 mL 08/09/24 Unknown Rx 0.08 gram-1.5 kcal/mL oral liquid (Ensure Plus High Protein) Allergy/AdvReac Type Severity Reaction Status Date / Time No Known Allergies Allergy Verified 10/17/24 23:16 Family History Father , at 40 YOA of an [place] Heart disease Other Hypertension Surgical History Status post cervical spinal fusion History of esophagogastroduodenoscopy (EGD) Hx of colonoscopy History of tonsillectomy and adenoidectomy History of appendectomy Social History household members: none and other details: He is . Ex is Emily and she still is in contact. housing: [...] ROS ED Constitutional Constitutional ED: Denies chills, fever(s), subjective, sweats or weight loss Eyes Eyes: Denies blurry vision, change in vision or diplopia ENT ENT ED: Denies ear pain, rhinorrhea or sore throat Cardiovascular Cardiovascular: Denies chest pain, orthopnea, palpitations or paroxysmal nocturnal dyspnea Respiratory/Chest Respiratory/Chest: Denies cough, dyspnea, dyspnea on exertion, orthopnea or paroxysmal nocturnal dyspnea Gastrointestinal Gastrointestinal: Denies abdominal pain, diarrhea, melena, nausea or vomiting Genitourinary Genitourinary ED: Reports other Details: Difficulty urinating. ; Denies dysuria, hematuria or urinary frequency Musculoskeletal Musculoskeletal: Denies arthralgias or myalgias Integumentary Denies rash Neurologic Neurologic: Reports weakness; Denies headache(s) or paresthesias Psychiatric Psychiatric: Denies anxiety Endocrine Endocrinology: Denies cold intolerance or heat intolerance Hematologic/Lymphatic Hematologic/Lymphatic: Reports systems reviewed and no addt'l complaints, exceptas documented EXAM Physical Exam Const Vital Signs: 10/17/24 23:16 10/17/24 23:19 10/17/24 23:19 Temperature 98.4 F Temperature Source Oral Pulse Rate 80 Pulse Rate [Lying] Pulse Rate [Sitting (for 1 minute prior to obtaining)] Pulse Rate [Standing (for 1 minute prior to obtaining)] Respiratory Rate 18 Respiratory Effort Normal Non-Labored Normal Non-Labored Respiratory Depth Normal Respiratory Pattern Normal Normal Blood Pressure 143/82 H Blood Pressure [Lying] Blood Pressure [Sitting (for 1 minute prior to obtaining)] Blood Pressure [Standing (for 1 minute prior to obtaining)] Blood Pressure Mean 102 Blood Pressure Mean [Lying] Blood Pressure Mean [Sitting (for 1 minute prior to obtaining)] Blood Pressure Mean [Standing (for 1 minute prior to obtaining)] Pulse Ox 97 Oxygen Delivery Method Room Air Room Air 10/17/24 23:19 10/18/24 00:08 10/18/24 00:17 Temperature 98.4 F 98.4 F Temperature Source Oral Oral Pulse Rate 80 72 Pulse Rate [Lying] 74 Pulse Rate [Sitting (for 1 minute prior to obtaining)] 84 Pulse Rate [Standing (for 1 minute prior to obtaining)] 94 Respiratory Rate 18 18 Respiratory Effort Respiratory Depth Respiratory Pattern Blood Pressure 143/82 H 165/90 H Blood Pressure [Lying] 156/80 H Blood Pressure [Sitting (for 1 minute prior to obtaining)] 119/70 Blood Pressure [Standing (for 1 minute prior to obtaining)] 74/39 L Blood Pressure Mean 102 115 Blood Pressure Mean [Lying] 105 Blood Pressure Mean [Sitting (for 1 minute prior to obtaining)] 86 Blood Pressure Mean [Standing (for 1 minute prior to obtaining)] 50 Pulse Ox 98 97 Oxygen Delivery Method Room Air Room Air 10/18/24 01:00 10/18/24 01:55 10/18/24 02:00 Temperature 98.3 F 98.2 F Temperature Source Oral Oral Pulse Rate 75 69 Pulse Rate [Lying] 80 Pulse Rate [Sitting (for 1 minute prior to obtaining)] 82 Pulse Rate [Standing (for 1 minute prior to obtaining)] 92 Respiratory Rate 18 18 Respiratory Effort Respiratory Depth Respiratory Pattern Blood Pressure 165/91 H 170/95 H Blood Pressure [Lying] 167/90 H Blood Pressure [Sitting (for 1 minute prior to obtaining)] 125/71 H Blood Pressure [Standing (for 1 minute prior to obtaining)] 67/38 L Blood Pressure Mean 115 120 Blood Pressure Mean [Lying] 115 Blood Pressure Mean [Sitting (for 1 minute prior to obtaining)] 89 Blood Pressure Mean [Standing (for 1 minute prior to obtaining)] 47 Pulse Ox 97 97 Oxygen Delivery Method Room Air Room Air 10/18/24 03:00 10/18/24 03:15 Temperature 98.3 F Temperature Source Oral Pulse Rate 83 Pulse Rate [Lying] 85 Pulse Rate [Sitting (for 1 minute prior to obtaining)] 92 Pulse Rate [Standing (for 1 minute prior to obtaining)] 94 Respiratory Rate 18 Respiratory Effort Respiratory Depth Respiratory Pattern Blood Pressure 154/91 H Blood Pressure [Lying] 173/85 H Blood Pressure [Sitting (for 1 minute prior to obtaining)] 118/67 Blood Pressure [Standing (for 1 minute prior to obtaining)] 91/80 Blood Pressure Mean 112 Blood Pressure Mean [Lying] 114 Blood Pressure Mean [Sitting (for 1 minute prior to obtaining)] 84 Blood Pressure Mean [Standing (for 1 minute prior to obtaining)] 83 Pulse Ox 97 Oxygen Delivery Method Room Air Patient's vital signs are unremarkable. Orthostatics were positive. Furthermore, patient was symptomatic. Positive well nourished and well developed General Appearance ED: well developed and NAD; Negative for cyanotic, diaphoretic or pallor HEENT Reports dry mucous membranes HEENT Narrative: Head is atraumatic and normocephalic. Ears normal. Nares patent. Posterior pharynx is normal. Mouth ED: Yes dry mucous membranes Mouth: dry mucous membranes Eyes PERRL and EOMs intact bilaterally Eyes Narrative: There is no nystagmus. General Eye ED: Negative for pale conjunctiva or scleral icterus Neck no lymphadenopathy, supple and no JVD Resp normal respiratory effort and clear to auscultation bilaterally Cardio regular rate, regular rhythm, S1 normal heart sound, S2 normal heart sound and no murmurs GI normal to inspection, nondistended, normoactive bowel sounds, non-tender and non-distended; Negative for hepatosplenomegaly GI Narrative: There is no palpable pulsatile mass. There is no abdominal bruit. Back/Spine no CVA tenderness Extremity Extremity Narrative: There is no asymmetry, discoloration, swelling, leg pain distention, palpable cords tenderness on the distribution of the deep venous system. General Extremety ED: Negative for tenderness Neuro oriented x3, CN's II-XII intact bilaterally and no sensory deficits noted Sensorium / Orientation: alert Motor Exam: strength 5/5 throughout Psych Mood & Affect: depressed Skin no rashes or lesions noted, no wounds and No skin turgor normal General Skin Exam: Negative for elasticity normal, jaundice or pallor MDM MDM MDM Narrative Medical decision making narrative: Clinically patient appears dehydrated. 1 L of normal saline was ordered. Orthostatic vital signs were obtained to determine if he has orthostatic hypotension due to possibly hypovolemia. EKG to assess for dysrhythmia. CBC toassess white count H&H. BMP to assess electrolytes and his BUN to creatinine ratio. Lab Data Attestation: I reviewed the patient's lab results. Lab results narrative: CBC reveals anemia with normal indices. He has had a 1.5 g drop in his hemoglobin since September 04. Electrolyte panel is remarkable for a slightly decreased chloride level. BUN is elevated 24 with a creatinine of 0.97. Creatinine is at upper end of normal for patient. BUN is elevated with an elevated BUN to creatinine ratio. This may represent prerenal azotemia due to dehydration. With 1.5 g drop in his hemoglobin need to consider GI bleed. Labs: Laboratory Results - last 24 hr 10/18/24 00:04 WBC 14.7 H RBC 4.12 L Hgb 11.2 L Hct 33.9 L MCV 82.3 MCH 27.2 MCHC 33.0 RDW Std Deviation 37.1 RDW Coeff of Delia 12.3 Plt Count 325 MPV 8.6 Immature Gran % (Auto) 0.700 Neut % (Auto) 83.5 H Lymph % (Auto) 7.4 L [place] % (Auto) 8.0 Eos % (Auto) 0.2 Baso % (Auto) 0.2 Absolute Neuts (auto) 12.3 H Absolute Lymphs (auto) 1.09 Nucleated RBC % 0 Sodium 136 Potassium 3.9 Chloride 97 L Carbon Dioxide 25.2 Anion Gap 14 BUN 24 H Creatinine 0.97 Estim Creat Clear Calc 56.80 Est GFR (MDRD) Non-Af 78 BUN/Creatinine Ratio 24.8 H Glucose 98 Calcium 9.7 Management Discussion w/another healthcare provider: Hospitalist (Case discussed with hospitalist, Dr. Jordan. This patient has a white count we will obtain a UA. Source of his white count is unknown.) Treatment and Re-Evaluation :: Orthostatic vital signs after a liter of normal saline were positive. He was symptomatic. Because of the drop in hemoglobin elevated BUN/creatinine ratio rectal exam was performed. Patient has light brown-colored stool. Stool was sent for Hemoccult testing. There is no obvious acute GI bleed. In light of this I second liter of normal saline was ordered. If he remains positive after the second liter will contact hospitalist for admission. Comments:: Patient is orthostatic after second liter is infused. He has made a total of 100 cc of urine. He is significantly dehydrated. Discharge Plan Triage Chief Complaint: Weakness Other Complaint: Fall ED Provider: Buck Rome Dx/Rx/DC Orders Clinical Impression: Orthostatic hypotension, Acute prerenal azotemia, Anemia, Micturition syncope, Leukocytosis Prescriptions: No Action midodrine 5 mg Tablet 10 mg PO 0700,1100,1500 Qty: 0 0RF pantoprazole 40 mg Tablet,Delayed Release (Dr/Ec) 40 mg PO BID Qty: 0 0RF mirtazapine 15 mg Tablet 15 mg PO QHS Qty: 0 0RF sennosides-docusate sodium [Stimulant Laxative Plus] 8.6-50 mg Tablet 2 tab PO BID Qty: 0 0RF bupropion HCl 150 mg tablet extended release 24 hr 150 mg PO DAILY acetaminophen 325 mg Tablet 650 mg PO Q6H PRN PRN (Reason: Pain 1-10 Or Fever >100.7) Qty: 0 0RF albuterol sulfate 2.5 mg /3 mL (0.083 %) Solution For Nebulization 2.5 mg inhalation Q2H PRN PRN (Reason: SOB &/OR WHEEZING) Qty: 0 0RF duloxetine 30 mg Capsule,Delayed Release(Dr/Ec) 30 mg PO DAILY Qty: 0 0RF Ensure Plus High Protein 0.08 gram-1.5 kcal/mL Liquid 120 ml PO 4X/DAY Qty: 0 0RF Primary Care Provider: Kwabena Menjivar Referrals: Kwabena Menjivar MD [Primary Care Provider] - Print Language: Armenian Disposition Disposition: Acute Care Hospital [facility] What to do if you have Problems For any increased pain, shortness of breath, bleeding, nausea or vomiting, chestpain, or any unexpected problems, contact your Primary Care Provider. Call [facility] ([phone]) or report to the closest Emergency Room. Call 911 if necessary. 10/18/24 033 <Electronically signed by Buck Rome MD> Cosigner Signature (if applicable): CC: Dr. Kwabena Menjivar MD ~ Signed [facility] Work Phone: Evaluation noteNo assessment information available [facility] Work Phone: Evaluation note* Diagnosis Onset [...] 12:44pm Hypertension chronic April 19, [address] [facility] Work Phone: History and physical note Author Yu Bradley [facility] Note Date/Time August 05, 2024 4:11 pm [facility] Medical Records Department [address] [place] [address] H&P Exam - Hospitalist 08/05/24 1543 MR#: [id number] Acct: [id number] Name: YAS ROSA Rep #:[id number] : 1940 83 From: Yu Bradley MD PCP: Dr. Kwabena Menjivar MD Status :ADM IRINA Location: [place] [address] HPI - General General Date of Admission: 08/05/24 Date of Service: 08/05/24 Chief Complaint: Generalized weakness, lightheaded on standing HPI Narrative YAS MOE, is a 83-year-old male history of anxiety, IBS, depression, GERD, cervical myelopathy with surgery in April presented [facility] ED 08/05/2024 with complaint of worsening [...] at bedside, patient has been home from [place] for thepast couple weeks but has had [...] fever headache. No other new acute complaints [facility] Medical History Cervical myelopathy Angiectasia of large [...] bisacodyl 10 mg rectal suppository 10 mg TN X1 PRN Con stipation #0 ea 05/18/24 [...] tabs hydrocortisone acetate 25 mg 25 mg TN QHS #12 ea 05/25 Unknown Rx rectal suppository (Anusol-HC) Allergy/AdvReac Type Severity Reaction Status Date / Time No Known Allergies Allergy Verified 08/05/24 11:37 Family History Father , at 40 YOA of an [place] Heart disease Other Hypertension Surgical History Status [...] % (Auto) 57.7, Lymph % (Auto) 31.4, [place]% (Auto) 8.2, Eos % (Auto) 2.0, Baso [...] Clarity Clear, Urine pH 7.0, Ur Specific [place] 1.010, Urine Protein Negative, Urine Glucose (UA) [...] IMPRESSION: No acute intracranial process. Reading Location: [facility] Cervical Spine CT 08/05/24 12:10 IMPRESSION: No acute cervical fracture or subluxations. Moderate multilevel degenerative changes of the cervical spine as above. Cervical ACDF spanning C3-C6 with interbody spacers. Reading Location: [facility] Assessment & Plan Assessment/Plan (1) Orthostatic lightheadedness: [...] Bradley MD Charges/Coding Visit Charges Inpatient E&M: 80601 Init Hosp L2 08/05/24 1611 <Electronically signed by Yu Bradley MD> Cosigner Signature (if applicable): CC: Dr. Kwabena Menjivar MD; Dr. Yu Bradley MD~ Signed [facility] Work Phone: Hospital Discharge instructionsAdditional Instructions [facility]: [facility] Phone: Reason for referral (narrative)No reason for referral information availableWNorwalk Memorial Hospital Work Phone: Summary Purpose Family History Relationship Condition Age at Onset Recorded Date/T adia Not Specified Hypertension Unknown father Cardiac disease Unknown Advance Directives Advance Directive Response Recorded Date/ Time Living Will No November 11 8:37am Power of Accounting Manager No November 11 8:37am Advance Directive Response Recorded Date/ Time Living Will No February 25 11:01am Power of Accounting Manager No February 26, 2024 11:01am Living Will Yes April 19, 2024 11:02am Power of Accounting Manager Yes April 19 11:02am Name of Medical Power of Accounting Manager ? April 19, 2024 11:02am Advance Directive Response Recorded Date/ Time Living Will No February 25 11:01am Do you have a Healthcare Power of Accounting Manager? No February 26, 2024 11:01am Living Will Yes April 26, 2024 3:54pm Do you have a Healthcare Power of Accounting Manager? Yes April 26, 2024 3:54pm Name of Medical Power of Accounting Manager ? April 26, 2024 3:54pm Advance Directive Response Recorded Date/ Time Living Will No February 25 11:01am Do you have a Healthcare Power of Accounting Manager? No February 26, 2024 11:01am Living Will Yes April 29, 2024 5:19pm Do you have a Healthcare Power of Accounting Manager? Yes April 29, 2024 5:19pm Name of Medical Power of Accounting Manager RIVERA MOE April 29, 2024 5:19pm Living Will Yes April 26, 2024 3:54pm Do you have a Healthcare Power of Accounting Manager? Yes April 26, 2024 3:54pm Name of Medical Power of Accounting Manager ? April 26, 2024 3:54pm Advance Directive Response Recorded Date/ Time Living Will Yes April 29, 2024 5:19pm Do you have a Healthcare Power of Accounting Manager? Yes April 29, 2024 5:19pm Name of Medical Power of Accounting Manager RIVERA ROSA April 29, 2024 5:19pm Living Will Yes April 26, 2024 3:54pm Do you have a Healthcare Power of Accounting Manager? Yes April 26, 2024 3:54pm Name of Medical Power of Accounting Manager ? April 26, 2024 3:54pm Advance Directive Response Recorded Date/ Time Living Will Yes April 29, 2024 5:19pm Do you have a Healthcare Power of Accounting Manager? Yes April 29, 2024 5:19pm Name of Medical Power of Accounting Manager RIVERA ROSA April 29, 2024 5:19pm Living Will Yes April 26, 2024 3:54pm Do you have a Healthcare Power of Accounting Manager? Yes April 26, 2024 3:54pm Name of Medical Power of Accounting Manager ? April 26, 2024 3:54pm Do you have a Healthcare Power of Accounting Manager? Yes August 05, 2024 12:11pm Advance Directive Response Recorded Date/ Time Living Will Yes April 29, 2024 5:19pm Do you have a Healthcare Power of Accounting Manager? Yes April 29, 2024 5:19pm Name of Medical Power of Accounting Manager RIVERA ROSA April 29, 2024 5:19pm Living Will Yes April 26, 2024 3:54pm Do you have a Healthcare Power of Accounting Manager? Yes April 26, 2024 3:54pm Name of Medical Power of Accounting Manager ? April 26, 2024 3:54pm Do you have a Healthcare Power of Accounting Manager? Yes August 05, 2024 4:32pm Name of Medical Power of Accounting Manager rivera August 05, 2024 4:32pm Advance Directive Response Recorded Date/ Time Living Will Yes April 29, 2024 5:19pm Do you have a Healthcare Power of Accounting Manager? Yes April 29, 2024 5:19pm Name of Medical Power of Accounting Manager RIVERA ROSA April 29, 2024 5:19pm Living Will Yes April 26, 2024 3:54pm Do you have a Healthcare Power of Accounting Manager? Yes April 26, 2024 3:54pm Name of Medical Power of Accounting Manager ? April 26, 2024 3:54pm Do you have a Healthcare Power of Accounting Manager? Yes August 05, 2024 4:32pm Name of Medical Power of Accounting Manager rivera August 05, 2024 4:32pm Do you have a Healthcare Power of Accounting Manager? Yes August 11, 2024 9:10am Name of Medical Power of Accounting Manager August 11, 2024 9:10am Advance Directive Response Recorded Date/ Time Living Will Yes April 29, 2024 5:19pm Do you have a Healthcare Power of Accounting Manager? Yes April 29, 2024 5:19pm Name of Medical Power of Accounting Manager RIVERA ROSA April 29, 2024 5:19pm Do you have a Healthcare Power of Accounting Manager? Yes August 05, 2024 4:32pm Name of Medical Power of Accounting Manager rivera August 05, 2024 4:32pm Do you have a Healthcare Power of Accounting Manager? Yes August 11, 2024 9:10am Name of Medical Power of Accounting Manager August 11, 2024 9:10am Advance Directive Response Recorded Date/ Time Do you have a Healthcare Power of Accounting Manager? Yes August 05, 2024 4:32pm Name of Medical Power of Accounting Manager rivera August 05, 2024 4:32pm Do you have a Healthcare Power of Accounting Manager? Yes August 11, 2024 9:10am Name of Medical Power of Accounting Manager August 11, 2024 9:10am Advance Directive Response Recorded Date/ Time Do you have a Healthcare Power of Accounting Manager? Yes October 17, 2024 11:19pm Do you have a Healthcare Power of Accounting Manager? Yes August 05, 2024 4:32pm Name of Medical Power of Accounting Manager rivera August 05, 2024 4:32pm Do you have a Healthcare Power of Accounting Manager? Yes August 11, 2024 9:10am Name of Medical Power of Accounting Manager August 11, 2024 9:10am Chief Complaint and [...] 19, 2024 12:44pm Subconjunctival hemorrhage April 19 025 12:44pm Chronic left shoulder pain April 19 [...] fracture April 20 12:54pm Subconjunctival hemorrhage April 20 025 12:54pm Syncope April 20, 2024 12: [...] 1:5 3pm SPINCAL CORD COMPRESSION W MYELOPATHY [facility] 2024 3:15pm SPINCAL CORD COMPRESSION W MYELOPATHY [facility] 2024 7:39pm SPINCAL CORD COMPRESSION W MYELOPATHY [facility] 2024 10:15am Arrhythmia April 30, 2024 5:0 6pm SPINCAL CORD COMPRESSION W MYELOPATHY [facility] 2024 12:34pm SPINCAL CORD COMPRESSION W MYELOPATHY [facility] 2024 12:36pm SPINCAL CORD COMPRESSION W MYELOPATHY [facility] 2024 12:27pm SPINCAL CORD COMPRESSION W MYELOPATHY [facility] 2024 11:03am SPINCAL CORD COMPRESSION W MYELOPATHY [facility] 2024 9:56am SPINCAL CORD COMPRESSION W MYELOPATHY Ap [facility] 2024 10:35am SPINCAL CORD COMPRESSION W MYELOPATHY ril 2024 2:26pm Reason for Visit Admit [...] left shoulder pain April 27 025 3:15pm Foraminal stenosis of cervical region [facility] 2024 3:15pm GERD with esophagitis April 27, [...] 1:5 3pm SPINCAL CORD COMPRESSION W MYELOPATHY [facility] 2024 3:15pm SPINCAL CORD COMPRESSION W MYELOPATHY [facility] 2024 7:39pm SPINCAL CORD COMPRESSION W MYELOPATHY [facility] 2024 10:15am Arrhythmia April 30, 2024 5:0 6pm SPINCAL CORD COMPRESSION W MYELOPATHY [facility] 2024 12:34pm SPINCAL CORD COMPRESSION W MYELOPATHY [facility] 2024 12:36pm SPINCAL CORD COMPRESSION W MYELOPATHY [facility] 2024 12:27pm SPINCAL CORD COMPRESSION W MYELOPATHY [facility] 2024 11:03am SPINCAL CORD COMPRESSION W MYELOPATHY [facility] 2024 9:56am SPINCAL CORD COMPRESSION W MYELOPATHY [...] 3:1 5pm GERD (gastroesophageal reflux disease) [facility] 2024 3:15pm Muscle spasm April 27, 2024 [...] 2024 3:15pm Foraminal stenosis of cervical region [facility] 2024 3:15pm Laryngeal edema April 27, [...] 1:5 3pm SPINCAL CORD COMPRESSION W MYELOPATHY [facility] 2024 3:15pm SPINCAL CORD COMPRESSION W MYELOPATHY [facility] 2024 7:39pm SPINCAL CORD COMPRESSION W MYELOPATHY [facility] 2024 10:15am Arrhythmia April 30, 2024 5:0 6pm SPINCAL CORD COMPRESSION W MYELOPATHY [facility] 2024 12:34pm SPINCAL CORD COMPRESSION W MYELOPATHY [facility] 2024 12:36pm SPINCAL CORD COMPRESSION W MYELOPATHY [facility] 2024 12:27pm SPINCAL CORD COMPRESSION W MYELOPATHY [facility] 2024 11:03am SPINCAL CORD COMPRESSION W MYELOPATHY [facility] 2024 9:56am SPINCAL CORD COMPRESSION W MYELOPATHY [...] 2024 3:15pm Foraminal stenosis of cervical region [facility] 2024 3:15pm Laryngeal edema April 27, 2024 [...] 1:5 3pm SPINCAL CORD COMPRESSION W MYELOPATHY [facility] 2024 3:15pm SPINCAL CORD COMPRESSION W MYELOPATHY [facility] 2024 7:39pm SPINCAL CORD COMPRESSION W MYELOPATHY [facility] 2024 10:15am Arrhythmia April 30, 2024 5:0 6pm SPINCAL CORD COMPRESSION W MYELOPATHY [facility] 2024 12:34pm SPINCAL CORD COMPRESSION W MYELOPATHY [facility] 2024 12:36pm SPINCAL CORD COMPRESSION W MYELOPATHY [facility] 2024 12:27pm SPINCAL CORD COMPRESSION W MYELOPATHY [facility] 2024 11:03am SPINCAL CORD COMPRESSION W MYELOPATHY [facility] 2024 9:56am SPINCAL CORD COMPRESSION W MYELOPATHY [...] 1:5 3pm SPINCAL CORD COMPRESSION W MYELOPATHY [facility] 2024 3:15pm SPINCAL CORD COMPRESSION W MYELOPATHY [facility] 2024 7:39pm SPINCAL CORD COMPRESSION W MYELOPATHY [facility] 2024 10:15am Arrhythmia April 30, 2024 5:0 6pm SPINCAL CORD COMPRESSION W MYELOPATHY [facility] 2024 12:34pm SPINCAL CORD COMPRESSION W MYELOPATHY [facility] 2024 12:36pm SPINCAL CORD COMPRESSION W MYELOPATHY [facility] 2024 12:27pm SPINCAL CORD COMPRESSION W MYELOPATHY [facility] 2024 11:03am SPINCAL CORD COMPRESSION W MYELOPATHY [facility] 2024 9:56am SPINCAL CORD COMPRESSION W MYELOPATHY [...] 1:5 3pm SPINCAL CORD COMPRESSION W MYELOPATHY [facility] 2024 3:15pm SPINCAL CORD COMPRESSION W MYELOPATHY [facility] 2024 7:39pm SPINCAL CORD COMPRESSION W MYELOPATHY [facility] 2024 10:15am Arrhythmia April 30, 2024 5:0 6pm SPINCAL CORD COMPRESSION W MYELOPATHY [facility] 2024 12:34pm SPINCAL CORD COMPRESSION W MYELOPATHY [facility] 2024 12:36pm SPINCAL CORD COMPRESSION W MYELOPATHY [facility] 2024 12:27pm SPINCAL CORD COMPRESSION W MYELOPATHY [facility] 2024 11:03am SPINCAL CORD COMPRESSION W MYELOPATHY [facility] 2024 9:56am SPINCAL CORD COMPRESSION W MYELOPATHY [...] 1:5 3pm SPINCAL CORD COMPRESSION W MYELOPATHY [facility] 2024 3:15pm SPINCAL CORD COMPRESSION W MYELOPATHY [facility] 2024 7:39pm SPINCAL CORD COMPRESSION W MYELOPATHY [facility] 2024 10:15am Arrhythmia April 30, 2024 5:0 6pm SPINCAL CORD COMPRESSION W MYELOPATHY [facility] 2024 12:34pm SPINCAL CORD COMPRESSION W MYELOPATHY [facility] 2024 12:36pm SPINCAL CORD COMPRESSION W MYELOPATHY [facility] 2024 12:27pm SPINCAL CORD COMPRESSION W MYELOPATHY [facility] 2024 11:03am SPINCAL CORD COMPRESSION W MYELOPATHY [facility] 2024 9:56am SPINCAL CORD COMPRESSION W MYELOPATHY [...] 1:5 3pm SPINCAL CORD COMPRESSION W MYELOPATHY [facility] 2024 3:15pm SPINCAL CORD COMPRESSION W MYELOPATHY [facility] 2024 7:39pm SPINCAL CORD COMPRESSION W MYELOPATHY [facility] 2024 10:15am Arrhythmia April 30, 2024 5:0 6pm SPINCAL CORD COMPRESSION W MYELOPATHY [facility] 2024 12:34pm SPINCAL CORD COMPRESSION W MYELOPATHY [facility] 2024 12:36pm SPINCAL CORD COMPRESSION W MYELOPATHY [facility] 2024 12:27pm SPINCAL CORD COMPRESSION W MYELOPATHY [facility] 2024 11:03am SPINCAL CORD COMPRESSION W MYELOPATHY [facility] 2024 9:56am SPINCAL CORD COMPRESSION W MYELOPATHY ril 2024 10:35am SPINCAL CORD COMPRESSION W MYELOPATHY Ap [facility] 2024 2:26pm LABWORK May 22, 2024 5:0 [...] 3:15pm Foraminal stenosis of cervical region [facility] 2024 3:15pm Laryngeal edema April 27, [...] 1:5 3pm SPINCAL CORD COMPRESSION W MYELOPATHY [facility] 2024 3:15pm SPINCAL CORD COMPRESSION W MYELOPATHY [facility] 2024 7:39pm SPINCAL CORD COMPRESSION W MYELOPATHY [facility] 2024 10:15am Arrhythmia April 30, 2024 5:0 6pm SPINCAL CORD COMPRESSION W MYELOPATHY [facility] 2024 12:34pm SPINCAL CORD COMPRESSION W MYELOPATHY [facility] 2024 12:36pm SPINCAL CORD COMPRESSION W MYELOPATHY [facility] 2024 12:27pm SPINCAL CORD COMPRESSION W MYELOPATHY [facility] 2024 11:03am SPINCAL CORD COMPRESSION W MYELOPATHY [facility] 2024 9:56am SPINCAL CORD COMPRESSION W MYELOPATHY [...] 3:1 5pm Postural dizziness with near syncope [facility] 2024 3:15pm Urinary hesitancy April 27, 2024 [...] 2024 3:15pm Foraminal stenosis of cervical region [facility] 2024 3:15pm Laryngeal edema April 27, 2024 [...] 1:5 3pm SPINCAL CORD COMPRESSION W MYELOPATHY [facility] 2024 3:15pm SPINCAL CORD COMPRESSION W MYELOPATHY [facility] 2024 7:39pm SPINCAL CORD COMPRESSION W MYELOPATHY [facility] 2024 10:15am Arrhythmia April 30, 2024 5:0 6pm SPINCAL CORD COMPRESSION W MYELOPATHY [facility] 2024 12:34pm SPINCAL CORD COMPRESSION W MYELOPATHY [facility] 2024 12:36pm SPINCAL CORD COMPRESSION W MYELOPATHY [facility] 2024 12:27pm SPINCAL CORD COMPRESSION W MYELOPATHY [facility] 2024 11:03am SPINCAL CORD COMPRESSION W MYELOPATHY [facility] 2024 9:56am SPINCAL CORD COMPRESSION W MYELOPATHY [...] Admit Date SPINCAL CORD COMPRESSION W [facility]ELOPATHY [facility] 20[facility] 3:15pm SPINCAL CORD COMPRESSION W MYELOPATHY [...] 3:1 5pm 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 025 3:15pm Cervical stenosis of spinal canal April 27, 2024 3:15pm Foraminal stenosis of cervical region [facility] 2024 3:15pm Laryngeal edema April 27, 2024 [...] Admit Date SPINCAL CORD COMPRESSION W MYELOPATHY [facility] 2024 3:15pm SPINCAL CORD COMPRESSION W MYELOPATHY [...] 2024 5:00a m Chief Complaint Admit Date [facility] May 25, 2024 12: 30pm K59.00 CONSTIPATION,UNSPECIFIED [...] 2 025 1:22pm Chief Complaint Admit Date [facility] May 25, 2024 12: 30pm K59.00 CONSTIPATION,UNSPECIFIED [...] LAB WORK September 04, 2024 4:00 am Chief Complaint Admit Date [facility] June 21, 2024 3:52p m [...] LAB WORK September 04, 2024 4:00 am ORTHOSTATIC HYPOTENSION, ANEMIA [facility] 2024 4:05am Reason for Visit Admit Date Status post cervical spinal fusion August 03, 2024 3:03pm Cervical myelopathy August 03, 2024 3:03 pm Generalized weakness August 06, 2024 1:2 2pm Orthostatic lightheadedness August 06 2 025 1:22pm Acute prerenal azotemia October 18, 2024 4:05am Anemia October 18, 2024 4:05am BPPV (benign paroxysmal positional verti go) October 18, 2024 4:05am Dehydration October 18, 2024 4:05am Generalized weakness October 18 4:05am Leukocytosis October 18, 2024 4:05am Micturition syncope October 18, 2024 4:05am Orthostatic hypotension October 18, 2024 4:05am Poor fluid intake October 18, 2024 4:05am Postural dizziness with near syncope Sep tember 2024 4:05am Additional Source Comments (unrecognized sect ion and content) No Status Records FoundNo Status Records FoundNo Status Records Found INFORMATION SOURCE (unrecogn ized section and content) DATE CREATED AUTHOR 08/04/2017 [facility] [place] [facility] ([place]) DATE CREATED AUTHOR AUTHOR'S ORGANIZ ATION 09/23/2024 [facility] DATE CREATED AUTHOR AUTHOR'S ORGANIZ ATION 10/08/2024 [facility] Care Teams (unrecognized sec tion [...] Active Start: April 21, 2024 Dr. Keanu Jopperi , DO Admit Provider Active Star t: April [...] rt: April 25, 2024 Ana Rosa Howard CHIEF COMMUNICATIONS OFFICER, CHIEF COMMUNICATIONS OFFICER-C Attending Provider Active Start: April 25, 2024 [...] Start: April 27, 2024 Dr. Corazon Wright , Other Provider Active Start: April 27, 2024 YADY Hyman Attending Provider Active Star t: April 27, 2024 Team Status: Active Member Role Status Dates Dr. Kwabena Menjivar MD Primary Care Provider Acti ve Start: April 28, 2024 Dr. Corazon Wright , Admit Provider Active Start: April 28, 2024 [...] Active Start: May 01, 2024 Dr. Corazon Wirght DO Attending Provider Act deborah Start: May 01, 2024 Dr. Corazon Wright , Other Provider Active Start: May 01, 2024 [...] May 08, 2024 Dr. Corazon Wright DO Admit Provider Active Start: May 08, 2024 Dr. Corazon Wright , Attending Provider Act deborah Start: May 08, 2024 Dr. Corazon Wright , Other Provider Active Start: May 08, 2024 Team Status: Active Member Role Status Dates Dr. Kwabena Menjivar MD Primary Care Provider Acti ve Start: May 09, 2024 Dr. Corazon Wright DO Admit Provider Active Start: May 09, 2024 Dr. Corazno Wright DO Attending Provider Act deborah Start: [...] End: May 25, 2024 Sonia Isbell NP-C Referring [...] 2024 End: May 22, 2024 Angelika Nowak NP, CHIEF COMMUNICATIONS OFFICER-C Attending Provider Active Start: May 22, 2024 [...] End: May 30, 2024 Angelika Nowak NP CHIEF COMMUNICATIONS OFFICER-C Attending Provider Active Start: May 30, 2024 [...] Active Start: April 21, 2024 Dr. Keanu Alrfed DO Admit Provider Active Star t: April [...] rt: April 25, 2024 Ana Rosa Howard CHIEF COMMUNICATIONS OFFICER, CHIEF COMMUNICATIONS OFFICER-C Attending Provider Active Start: April 25, 2024 [...] End: April 30, 2024 Dr. Corazon Wright , DO Referring Provider Act deborah Start: April 30, 2024 End: April 30, 2024 Team Status: Active Member Role/Relationship Status Dates Dr. Kwabena Menjivar MD Primary Care Provider Acti ve Start: May 01, 2024 Dr. Corazon Wright , DO Admit Provider Active Start: May 01, 2024 Dr. Corazon Wright , DO Attending Provider Act deborha Start: May 01, 2024 Dr. Corazon Wright [...] May 08, 2024 Dr. Corazon Wright , Other Provider Active Start: May 08, 2024 [...] 2024 End: May 22, 2024 Angelika Nowak NP, CHIEF COMMUNICATIONS OFFICER-C Attending Provider Active Start: May 22, 2024 [...] End: May 30, 2024 Angelika Nowak NP CHIEF COMMUNICATIONS OFFICER-C Attending Provider Active Start: May 30, 2024 [...] End: May 22, 2024 Angelika Nowak NP CHIEF COMMUNICATIONS OFFICER-C Attending Provider Active Start: May 22, 2024 [...] 2024 End: May 30, 2024 Angelika Nowak CHIEF COMMUNICATIONS OFFICER CHIEF COMMUNICATIONS OFFICER-C Attending Provider Active Start: May 30, 2024 [...] 2024 End: June 12, 2024 Angelika Nowak CHIEF COMMUNICATIONS OFFICER CHIEF COMMUNICATIONS OFFICER-C Attending Provider Active Start: June 12, 2024 [...] Provider Active Start: August 05, 2024 Dr. uY Bradley MD Other Provider Active Star t: [...] Start: August 09, 2024 Dr. Kayode Woods , Emergency Provider Active Start: August 09, 2024 [...] 2024 End: June 21, 2024 Angelika Nowak CHIEF COMMUNICATIONS OFFICER, CHIEF COMMUNICATIONS OFFICER-C Attending Provider Active Start: June 21, 2024 [...] End: August 09, 2024 Dr. Kayode Woods , DO Emergency Provider Active Start: August 06, [...] 30, 2024 End: May 30, 2024 Angelika Tickton CHIEF COMMUNICATIONS OFFICER, CHIEF COMMUNICATIONS OFFICER-C Attending Provider Active Start: May 30, 2024 [...] 2024 End: June 12, 2024 Angelika Nowak NP, CHIEF COMMUNICATIONS OFFICER-C Attending Provider Active Start: June 12, 2024 [...] 2024 End: June 21, 2024 Angelika Nowak CHIEF COMMUNICATIONS OFFICER, CHIEF COMMUNICATIONS OFFICER-C Attending Provider Active Start: June 21, 2024 [...] Active Star t: August 08, 2024 Dr. Kenau Collier DO Other Provider Active S tart: August 08, 2024 Team Status: Active Member Role/Relationship Status Dates Dr. Kwabena Menjivar MD Primary Care Provider Acti ve Start: August 09, 2024 Dr. Kayode Woods , DO Emergency Provider Active Start: August 09, [...] August 11, 2024 Dr. Keanu Zurita , Emergency Provider Active Start: August 11, 2024 [...] 2024 End: August 14, 2024 Angelika Nowak CHIEF COMMUNICATIONS OFFICER, CHIEF COMMUNICATIONS OFFICER-C Attending Provider Active Start: August 14, 2024 [...] 2024 End: June 21, 2024 Angelika Nowak NP, CHIEF COMMUNICATIONS OFFICER-C Attending Provider Active Start: June 21, 2024 [...] 2024 End: August 14, 2024 Angelika Nowak NP, CHIEF COMMUNICATIONS OFFICER-C Attending Provider Active Start: August 14, 2024 [...] Active Start: September 04, 2024 Team Status: Active Member Role/Relationship Status Dates Dr. Kwabena Menjivar MD Primary Care Provider Acti ve Start: October 18, 2024 Dr. Buck Rome MD Emergency Provider Active Sta rt: October 18, 2024 Dr. Jacoby Tenorio DO Admit Provider Active Start: October 18, 2024 Dr. Jacoby Tenorio DO Attending Provider Active Start: October 18, 2024 Goals (unrecognized section and content) Goals [...] BE BASED ON THE PRIMARY CLINICAL RECORDS. [employer] [facility]. provides no warranty or guarantee of the accuracy or completeness of information in this document.
--- OUTSIDE RECORDS SUMMARY | 2024-10-18 05:12 | XMS RPT_ITS | CCD ---
Author Organization [facility]ini[facility]ypa Care Team Providers Care Pantographer Name Role Phone JORGE L CARTER Unavailable Unavailable KWABENA MENJIVAR Unavailable Unavailable BAO CERVANTES Unavailable Unavailable KWABENA MENJIVAR Unavailable Unavailable Otto CABELLO, Dr. Brown Primary Care Provider Mark CBAELLO, Dr. Sterling Attending Provider Dr. Asher Flores MD Emergency Provider [phone] David Granados MD Attending Provider Dr. [...] Harish Baxter MD Other Provider Anita SUE-C, AnaR osa Snyder Attending Provider Dr. Harish Baxter MD Referring Provider Dr. Corazon Wright DO Catherine Admit Provider Sementi DO, Dr. Corazon Pacheco Attending Provide r Sementi DO, Dr. Corazon Pacheco Referring Provide r Sementi DO, Dr. Corazon Pacheco Other Provider Awa Gamble Attending Provider Tima BREWER, Dr. Colunga Referring Provider Jaimie CABELLO, Keven Attending Provider Unavaila kamlesh Menjivar MD, Dr. Brown Referring Provider Sukhi ONCOLOGY CONSULTANT-C, Sonia Attending Provider Sukhi ONCOLOGY CONSULTANT-C, Sonia Referring Provider Otto CABELLO, Dr. Brown [...] Sahil CABELLO, Dr. Moreira Referring Provider Darwin CABELLO, Dr. Hernandez Attending Provider Darwin CABELLO, Dr. [...] Menjivar MD, Dr. Brown Referring Provider [phone] Sukhi ONCOLOGY CONSULTANT-C, Sonia Attending Provider Sukhi ONCOLOGY CONSULTANT-C, Sonia Referring Provider Jaimie CABELLO, Keven Referring Provider Unavailyenifer Menjivar MD, Dr. Brown Attending Provider [phone] She ONCOLOGY CONSULTANT-C, Angelika Attending Provider Jaimie CABELLO, Dr. Baca [...] Bradley Consulting Unavailable Jacoby Mendoza Attending Unavailable [facility] Primary Care Unavailable Keanu Collier Consulting Unavailable Ciro Diego Consulting Unavailable [facility] Unavailable Harish Baxter Attending Unavailable Keanu Alfred Admitting Unavailable SiskaYas Consulting Unavailable Keanu Alfred Consulting Unavailable Sementi, Corazon Pacheco Admitting Unavaila ble Sementi, Corazon Pacheco Attending Unavaila ble [facility] Unavailable Sementi, Corazon Pacheco Referring [facility]av[facility] ble [facility]available Keanu Zurita Attending Unavailable [facility] Unavailable Awa Chadwick Attending Unavailable Sementi, Corazno Pacheco Consulting Unavaila ble Sementi, Corazon Pacheco Referring Unavaila ble Sementi, Corazon Pacheco Admitting Unavaila ble Sementi, Corazon Pacheco Attending Unavaila ble Sonia Isbell Attending Unavailable [facility] Referring Unavailable [facility] Primary Care Unavailable Angelika Nowak NP Attending Unavailable [facility] Primary Care Unavailable Oleghe OLS, Efewongbe Referring Unavailabl e Oleghe OLS, Efewongbe Attending Unavailabl e [facility] Unavailable Oleghe OLS, Efewongbe Attending Unavailabl e [facility] Unavailable Oleghe OLS, Effrannyongbe Attending Unavailabl e [facility] Primary Care Unavailable Oleghe OLS, Efewongbe Referring Unavailabl e Oleghe OLS, Efewongbe Attending Unavailabl e [facility] Unavailable Oleghe OLS, Efewcadenbe Attending Unavailabl e [facility] Care Unavailable [facility] Primary Care Unavailable [facility] Referring Unavailable [facility] Attending Unavailable Bisi Brittonbe Attending Unavailabl e [facility] Primary Care Unavailable Sonia Isbell Referring Unavailable Sonia Isbell Attending Unavailable [facility] Primary Care Unavailable [facility] Primary Care Unavailable Fransicoe Bisi KIRKPATRICKbe Attending Unavailabl e Bradley, Yu Admitting Unavailable Bradley, Yu Consulting Unavailable Bradley Yu Attending Unavailable [facility] Primary Care Unavailable Bradley, Yu Admitting Unavailable Bradley, Yu Consulting Unavailable [facility] Primary Care Unavailable Keanu Collier Attending Unavailable Tereletsky, Keanu Consulting Unavailable [facility] Primary Care Unavailable GuerdapperiShaneic Attending Unavailable Jopperi, Keanu Admitting Unavailable Jopperi, Keanu Consulting Unavailable Sisjoann Yas Attending Unavailable Siska, Yas Consulting Unavailable Jopperi, Keanu Referring Unavailable Tracie Diegoag Consulting Unavailable Siska, Yas Consulting Unavailable [facility] Primary Care Unavailable Jopperi, Keanu Admitting Unavailable Guerdapperi, Keanu Attending Unavailable Tracie Diegoag Consulting Unavailable Jopperi, Keanu Consulting Unavailable Tracie Diegoag Attending Unavailable Sahil, Harish Referring Unavailable KitJacoby farley Attending Unavailable Jacoby Mendoza Consulting Unavailable Tracie Diegoag Attending [facility]available [facility] Referring Unavailable [facility] Primary Care Unavailable David Grnaados Attending Unavailable [facility] Primary Care Unavailable She ONCOLOGY CONSULTANT, Angelika Attending Unavailable [facility] Primary Care Unavailable Ciro Diego Attending Unavailable [facility] Referring Unavailable [facility] Primary Care Unavailable Sahil, Harish Attending Unavailable Sahil, Harish Consulting Unavailable Anita ONCOLOGY CONSULTANT, Ana Rosa Snyder Attending Unavailabl e David Granados Attending Unavailable [facility] Primary Care Unavailable Bisi Etiennebe Attending Unavailable [facility] Primary Care Unavailable [facility] Primary Care Unavailable David Granados Attending Unavailable [facility] Primary Care Unavailable She ONCOLOGY CONSULTANT, Aneglika Attending Unavailable Marcuston ONCOLOGY CONSULTANT, Angelika Attending Unavailable [facility] Primary Care Unavailable Bisi Etiennebe Attending Unavailable [facility] Primary Care Unavailable Tickton ONCOLOGY CONSULTANT, Angelika Attending Unavailable Ranney, Christopher Primary Care Unavailable Ciro Diego Attending Unavailable Sonia Isbell Referring Unavailable SukhiSonia marie Attending Unavailable [facility] Unavailable Oleghe KAYA, Efewongbe Attending [...] Unavailable Gurwinderney, Christopher Primary Care Unavailable Ranney[facility] Unavailable Oleghe KAYA Efewongbe Attending Unavailabl e Oleghe OLS, Efewongbe Referring Unavailabl e Oleghe OLS, Efewongbe Attending Unavailabl e Otto[facility] Unavailable Otto CABELLO, Dr. Brown Primary Care Provider She SUE-Angelika Wu Attending Provider Keven Etienne MD Attending Provider UnavailKeven Ledezma MD Referring Provider UnavailDr. Kwabena Eid MD Referring Provider Dr. Ciro Diego MD Attending Provider Dr. David Granados MD Attending Provider Dr. Buck Rome MD Emergency Provider [phone] Jacoby Tenorio DO Admit Provider Unavail [...] chew docusate sodium 50 mg / sennosides, correction 8.6 mg oral tablet (17 sources) Start: [...] AT BEDTIME 0 May 18, 2024 12:00am Ponce (Nk) (1 source) Start: 02-26-2024 Ponce (Nk) A ctive February 26, 2024 1:00am [...] Comment on above: acute on chronic. 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 but, [...] Auto (Unsp spec) [#/Vol] 1.09 10*3/uL 0.83-4.51 [facility] Amorphous sediment detection in urine sediment by light microscopyOrdered By: Buck Rome on 10-18-2024 Amorphous sediment LM Ql (Urine sed) 1+ [facility] Anion gap in Serum or Plasma Ordered By: Buck Rome on 10-18-2024 Anion gap [Moles/Vol] 14 mmol/L 5-15 [facility] Automated lymphocyte count a s percentage of total leukocytesOrdered By: Buck Montgomeryo on 10-18-2024 Lymphocytes/100 WBC Auto (Unsp spec) 7.4 % Low 19-41 [facility] BUN/creatinine ratioOrdered By: Buck Montgomeryo on 10-18-2024 Urea nitrogen/Creatinine [Mass ratio] 24.8 mg/mg High 10-20 [facility] Basophil percentageOrdered B y: Buck Rome on 10-18-2024 Basophils/100 WBC (Bld) 0.2 % 0-1 [facility] Bilirubin Test strip Ql (U)O rdered By: Buck Rome on 10-18-2024 Bilirubin Ql (U) Negative Negative [facility] Carbon dioxide, total [Moles /volume] in Central venous bloodOrdered By: Buck Rome on 10-18-2024 CO2 [Moles/Vol] 25.2 mmol/L 21.0-32.0 [facility] Chloride assayOrdered By: Shruthi Rome on 10-18-2024 Chloride [Moles/Vol] 97 mmol/L Low 98-108 [facility] Eosinophil percentageOrdered By: Buck Montgomeryo on 10-18-2024 Eosinophils/100 WBC (Bld) 0.2 % 0-5 [facility] Erythrocyte distribution wid th ratioOrdered By: Buck Rome on 10-18-2024 Erythrocyte distribution width (RBC) [Ratio] 12.3 % 11.6-14.6 [facility] Erythrocyte distribution wid th standard deviationOrdered By: Buck Rome on 10-18-2024 Erythrocyte distribution width (RBC) [Ratio] 37.1 fl 35.1-43.9 [facility] Glomerular filtration rate ( GFR) estimation/1.73 sq m using serum, plasma, or whole bOrdered By: Buck Rome on 10-18-2024 GFR/1.73 sq M.predicted among non-blacks MDRD (S/P/Bld) [Vol rate/Area] 78 mL/min/{1.73_m2} >60 [facility] Hematocrit Auto (Bld) [Volum e fraction]Ordered By: Buck Rome on 10-18-2024 Hematocrit (Bld) [Volume fraction] 33.9 % Low 40-54 [facility] Hemoglobin measurementOrdere d By: Buck Rome on 10-18-2024 Hemoglobin (Bld) [Mass/Vol] 11.2 g/dL Low 13.0-16.5 [facility] Immature granulocytes/100 WB C Auto (Bld)Ordered By: Buck Rome on 10-18-2024 Immature granulocytes/100 WBC (Bld) 0.700 % 0.0-0.9 [facility] Ketones Test strip Ql (U)Ord ered By: Buck Rome on 10-18-2024 Ketones Ql (U) 5 mg/dl High Negative [facility] MCV (mean corpuscular volume ) determinationOrdered By: Buck Rome on 10-18-2024 MCV (RBC) [Entitic vol] 82.3 fL 80-94 [facility] Mean corpuscular hemoglobin (MCH) determinationOrdered By: Buck Rome on 10-18-2024 MCH (RBC) [Entitic mass] 27.2 pg 27.0-32.0 [facility] Monocyte percentageOrdered B y: Buck Rome on 10-18-2024 Monocytes/100 WBC (Bld) 8.0 % 0-10 [facility] Mucus LM Ql (Urine sed)Order ed By: Buck Rome on 10-18-2024 Mucus Ql (Urine sed) 0 SEEN /hpf [facility] Neutrophil percentageOrdered By: Buck Rome on 10-18-2024 Neutrophils/100 WBC (Bld) 83.5 % High 47-70 [facility] Nitrite Test strip Ql (U)Ord ered By: Buck Rome on 10-18-2024 Nitrite Ql (U) Negative Negative [facility] Platelet countOrdered By: Shruthi Rome on 10-18-2024 Platelets (Bld) [#/Vol] 325 10*3/uL 150-450 [facility] Potassium measurement (mass/ volume)Ordered By: Buckagatha Rome on 10-18-2024 Potassium (Unsp spec) [Mass/Vol] 3.9 mmol/L 3.3-5.1 [facility] Protein Test strip Ql (U)Ord ered By: Buck Rome on 10-18-2024 Protein Ql (U) 15 mg/dl High Negative [facility] RBC Auto (Bld) [#/Vol]Ordere d By: Buck Rome on 10-18-2024 RBC (Bld) [#/Vol] 4.12 10*6/uL Low 4.6-6.2 [facility] Serum creatinine measurement (mass/volume)Ordered By: Buck Rome on 10-18-2024 Creatinine [Mass/Vol] 0.97 mg/dL 0.70-1.20 [facility] Serum glucose measurement (m ass/volume)Ordered By: Buck Rome on 10-18-2024 Glucose [Mass/Vol] 98 mg/dL 70-99 [facility] Serum or plasma calcium ratna urement (mass/volume)Ordered By: Buck Rome on 10-18-2024 Calcium [Mass/Vol] 9.7 mg/dL 7.6-11.0 [facility] Serum or plasma urea nitroge n measurement (mass/volume)Ordered By: Buck Rome on 10-18-2024 Urea nitrogen [Mass/Vol] 24 mg/dL High 4-19 [facility] Sodium levelOrdered By: Buck Rome on 10-18-2024 Sodium [Moles/Vol] 136 mmol/L 133-145 [facility] Squamous epithelial cells de tection in urine sediment by light microscopyOrdered By: Buck Rome on 10-18-2024 Epithelial cells.squamous LM Ql (Urine sed) 0 SEEN /hpf 0-5 [facility] Stool gastrointestinal hemog lobin detection by immunologic methodOrdered By: Buck Rome on 10-18-2024 Lower GI hemoglobin IA Ql (Stl) [facility] Urine clarityOrdered By: Buck Rome on 10-18-2024 Clarity (U) Clear Clear [facility] Urine color determinationOrd ered By: Buck Rome on 10-18-2024 Color (U) Yellow Yellow [facility] Urine glucose detectionOrder ed By: Buck Rome on 10-18-2024 Glucose Ql (U) Normal mg/dl Normal [facility] Urine leukocyte esterase det ection by dipstickOrdered By: Buck Rome on 10-18-2024 Leukocyte esterase Test strip Ql (U) Negative Negative [facility] Urine pHOrdered By: Buck Gall o on 10-18-2024 pH (U) 6.0 [pH] 5.0 - 8.0 [facility] Urine sediment bacteria coun t by microscopy (number/high power field)Ordered By: Buck Rome on 10-18-2024 Bacteria LM.HPF (Urine sed) [#/Area] 2 /[HPF] None Seen [facility] Urine specific gravity measu rementOrdered By: Buck Rome on 10-18-2024 Specific gravity (U) [Rel density] 1.020 1.002-1.030 [facility] Urine urobilinogen measureme ntOrdered By: Buck Rome on 10-18-2024 Urobilinogen Ql (U) 1 mg/dl High Normal [facility] White blood cell (WBC) count Ordered By: Buck Rome on 10-18-2024 WBC (Bld) [#/Vol] 14.7 10*3/uL High 4.4-11.0 [facility] White blood cell countOrdere d By: Bukc Rome on 10-18-2024 White blood cell count 0-5 SEEN /hpf 0-5 [facility] Bacteria Ur Culton Bacteria identified Cx Nom (U) ORGANISM ID: 1 10,000 -<50,000 CFU/ml Normal urogenital tushar Normal [facility] Comment on above: Performed By: #### 6 30-4 #### [facility] CLIA [id number] [address] [place] [address] [place] URINALYSIS, DIPSTICK ONLYon 10-05-2024 Bilirubin Ql (U) Negative Normal Negative [facility] Comment on above: Order Comment: Speci men Type: URINE SPECIMEN Ordering Facility: [facility] Address: [address] [place] [address] Performed By: #### U A #### [facility] CLIA [id number] [address] [place] [address] [place] Clarity (Unsp spec) Clear Normal Clear Fer [facility] Comment on above: Order Comment: Speci men Type: URINE SPECIMEN Ordering Facility: [facility] Address: [address] [place] [address] Performed By: #### U A #### [facility] CLIA [id number] [address] [facility] [address] [place] [address] [place] Color (U) Yellow Normal Yellow [facility] Comment on above: Order Comment: Speci men Type: URINE SPECIMEN Ordering Facility: [facility] Address: [address] [place] [address] Performed By: #### U A #### [facility] CLIA [id number] [address] [place] [id number] [place] Glucose Test strip (U) [Mass/Vol] Negative Normal Negative [facility] Comment on above: Order Comment: Speci men Type: URINE SPECIMEN Ordering Facility: [facility] Address: [address] [place] [address] Performed By: #### U A #### [facility] CLIA [id number] [address] [address] [place] Hemoglobin Ql (U) Negative Normal Negative [facility] Comment on above: Order Comment: Speci men Type: URINE SPECIMEN Ordering Facility: [facility] Address: [address] [place] [address] Performed By: #### U A #### [facility] CLIA [id number] [address] [facility] [address] [place] [address] [place] Ketones Ql (U) Negative Normal Negative [facility] Comment on above: Order Comment: Speci men Type: URINE SPECIMEN Ordering Facility: [facility] Address: [address] [place] [address] Performed By: #### U A #### [facility] CLIA [id number] [address] [facility] [address] [address] [place] Leukocyte esterase Test strip Ql (U) Negative Normal Negative [facility] Comment on above: Order Comment: Speci men Type: URINE SPECIMEN Ordering Facility: [facility] Address: [address] [place] [address] Performed By: #### U A #### [facility] CLIA [id number] [address] [place] [address] [place] Nitrite Ql (U) Negative Normal Negative [facility] Comment on above: Order Comment: Speci men Type: URINE SPECIMEN Ordering Facility: [facility] Address: [address] [place] [address] Performed By: #### U A #### [facility] CLIA [id number] [address] [place] [address] [place] pH (U) 6.0 [pH] Normal 5.0-8.0 [facility] Comment on above: Order Comment: Speci men Type: URINE SPECIMEN Ordering Facility: [facility] Address: [address] [place] [address] Performed By: #### U A #### [facility] CLIA [id number] [address] [place] [address] [place] Protein (U) [Mass/Vol] Trace Abnormal Negative [facility] Comment on above: Order Comment: Speci men Type: URINE SPECIMEN Ordering Facility: [facility] Address: [address] [place] [address] Performed By: #### U A #### [facility] CLIA [id number] [address] [place] [address] [place] Specific gravity (U) [Rel density] 1.014 Normal 1.005-1.030 [facility] Comment on above: Order Comment: Speci men Type: URINE SPECIMEN Ordering Facility: [facility] Address: [address] [place] [address] Performed By: #### U A #### [facility] CLIA [id number] [address] [place] [address] [facility] [place] Urobilinogen Ql (U) 1.0 EU/dL Normal 0.2-1.0 EU/dL [facility] Comment on above: Order Comment: Speci men Type: URINE SPECIMEN Ordering Facility: [facility] Address: [address] [place] [address] [place] [address] Performed By: #### U A #### [facility] CLIA [id number] [address] [place], [place] [id number] [facility] Absolute lymphocyte countOrd ered By: Keven Etienne on 09-04-2024 Lymphocytes Auto (Unsp spec) [#/Vol] 2.41 10*3/uL 0.83-4.51 [facility] Anion gap in Serum or Plasma Ordered By: Keven Etienne on 09-04-2024 Anion gap [Moles/Vol] 12 mmol/L 5-15 [facility] Automated lymphocyte count a s percentage of total leukocytesOrdered By: Keven Etienne on 09-04-2024 Lymphocytes/100 WBC Auto (Unsp spec) 27.0 % 19-41 [facility] BUN/creatinine ratioOrdered By: Keven Etienne on 09-04-2024 Urea nitrogen/Creatinine [Mass ratio] 13.7 mg/mg 10-20 [facility] Basophil percentageOrdered B y: Keven Etienne on 09-04-2024 Basophils/100 WBC (Bld) 0.4 % 0-1 [facility] Carbon dioxide, total [Moles /volume] in Central venous bloodOrdered By: Keven Etienne on 09-04-2024 CO2 [Moles/Vol] 26.1 mmol/L 21.0-32.0 [facility] Chloride assayOrdered By: Edwar Etienne on 09-04-2024 Chloride [Moles/Vol] 102 mmol/L 98-108 [facility] Eosinophil percentageOrdered By: Keven tEienne on 09-04-2024 Eosinophils/100 WBC (Bld) 5.9 % High 0-5 [facility] Erythrocyte distribution wid th ratioOrdered By: Keven Etienne on 09-04-2024 Erythrocyte distribution width (RBC) [Ratio] 12.4 % 11.6-14.6 [facility] Erythrocyte distribution wid th standard deviationOrdered By: Keven Marcdollyjuan luis on 09-04-2024 Erythrocyte distribution width (RBC) [Ratio] 38.8 fl 35.1-43.9 [facility] Glomerular filtration rate ( GFR) estimation/1.73 sq m using serum, plasma, or whole bOrdered By: Keven Etienne on 09-04-2024 GFR/1.73 sq M.predicted among non-blacks MDRD (S/P/Bld) [Vol rate/Area] 82 mL/min/{1.73_m2} >60 [facility] Hematocrit Auto (Bld) [Volum e fraction]Ordered By: Keven Etienne on 09-04-2024 Hematocrit (Bld) [Volume fraction] 38.1 % Low 40-54 [facility] Hemoglobin measurementOrdere d By: Keven Etienne on 09-04-2024 Hemoglobin (Bld) [Mass/Vol] 12.7 g/dL Low 13.0-16.5 [facility] Immature granulocytes/100 WB C Auto (Bld)Ordered By: Keven Etienne on 09-04-2024 Immature granulocytes/100 WBC (Bld) 0.300 % 0.0-0.9 [facility] MCV (mean corpuscular volume ) determinationOrdered By: Keven Etienne on 09-04-2024 MCV (RBC) [Entitic vol] 86.0 fL 80-94 [facility] Mean corpuscular hemoglobin (MCH) determinationOrdered By: Keven Etienne on 09-04-2024 MCH (RBC) [Entitic mass] 28.7 pg 27.0-32.0 [facility] Monocyte percentageOrdered B y: Keven Etienne on 09-04-2024 Monocytes/100 WBC (Bld) 8.4 % 0-10 [facility] Neutrophil percentageOrdered By: Keven Etienne on 09-04-2024 Neutrophils/100 WBC (Bld) 58.0 % 47-70 [facility] Platelet countOrdered By: Edwar whittaker Monicodollyjuan luis on 09-04-2024 Platelets (Bld) [#/Vol] 231 10*3/uL 150-450 [facility] Potassium measurement (mass/ volume)Ordered By: Keven Monicomarisela on 09-04-2024 Potassium (Unsp spec) [Mass/Vol] 4.2 mmol/L 3.3-5.1 [facility] RBC Auto (Bld) [#/Vol]Ordere d By: Keven Monicomarisela on 09-04-2024 RBC (Bld) [#/Vol] 4.43 10*6/uL Low 4.6-6.2 [facility] Serum creatinine measurement (mass/volume)Ordered By: iBsikeron Marcmarisela on 09-04-2024 Creatinine [Mass/Vol] 0.93 mg/dL 0.70-1.20 [facility] Serum glucose measurement (m ass/volume)Ordered By: Edwarfrannycadenkeron Marcdollyjuan luis on 09-04-2024 Glucose [Mass/Vol] 105 mg/dL High 70-99 [facility] Serum or plasma calcium ratna urement (mass/volume)Ordered By: Keven Monicomarisela on 09-04-2024 Calcium [Mass/Vol] 9.3 mg/dL 7.6-11.0 [facility] Serum or plasma urea nitroge n measurement (mass/volume)Ordered By: Edwarfrannycadenkeron Marcmarisela on 09-04-2024 Urea nitrogen [Mass/Vol] 13 mg/dL 4-19 [facility] Sodium levelOrdered By: Rita avendano Monicodollyjuan luis on 09-04-2024 Sodium [Moles/Vol] 140 mmol/L 133-145 [facility] White blood cell (WBC) count Ordered By: Edwarfrannyjuan alberto Monicomarisela on 09-04-2024 WBC (Bld) [#/Vol] 8.9 10*3/uL 4.4-11.0 [facility] Absolute lymphocyte countOrd ered By: Keven Monicomarisela on 08-14-2024 Lymphocytes Auto (Unsp spec) [#/Vol] 2.50 10*3/uL 0.83-4.51 [facility] Anion gap in Serum or Plasma Ordered By: Keven Etienne on 08-14-2024 Anion gap [Moles/Vol] 11 mmol/L 5-15 [facility] Automated lymphocyte count a s percentage of total leukocytesOrdered By: Keven Etienne on 08-14-2024 Lymphocytes/100 WBC Auto (Unsp spec) 33.6 % 19-41 [facility] BUN/creatinine ratioOrdered By: Keven Etienne on 08-14-2024 Urea nitrogen/Creatinine [Mass ratio] 14.3 mg/mg 10-20 [facility] Basophil percentageOrdered B y: Keven Etienne on 08-14-2024 Basophils/100 WBC (Bld) 0.7 % 0-1 [facility] Bilirubin, totalOrdered By: Keven Etienne on 08-14-2024 Bilirubin [Mass/Vol] 0.30 mg/dL 0.00-1.30 [facility] [place] dioxide, total [Moles /volume] in Central venous bloodOrdered By: Keven Etienne on 08-14-2024 CO2 [Moles/Vol] 24.6 mmol/L 21.0-32.0 [facility] Chloride assayOrdered By: Ewdar Etienne on 08-14-2024 Chloride [Moles/Vol] 105 mmol/L 98-108 [facility] Eosinophil percentageOrdered By: Keven Etienne on 08-14-2024 Eosinophils/100 WBC (Bld) 3.8 % 0-5 [facility] Erythrocyte distribution wid th ratioOrdered By: Keven Etienne on 08-14-2024 Erythrocyte distribution width (RBC) [Ratio] 12.7 % 11.6-14.6 [facility] Erythrocyte distribution wid th standard deviationOrdered By: Keven Etienne on 08-14-2024 Erythrocyte distribution width (RBC) [Ratio] 41.1 fl 35.1-43.9 [facility] Glomerular filtration rate ( GFR) estimation/1.73 sq m using serum, plasma, or whole bOrdered By: Keven Etienne on 08-14-2024 GFR/1.73 sq M.predicted among non-blacks MDRD (S/P/Bld) [Vol rate/Area] 88 mL/min/{1.73_m2} >60 [facility] Hematocrit Auto (Bld) [Volum e fraction]Ordered By: Keven Etienne on 08-14-2024 Hematocrit (Bld) [Volume fraction] 37.9 % Low 40-54 [facility] Hemoglobin measurementOrdere d By: Keven Etienne on 08-14-2024 Hemoglobin (Bld) [Mass/Vol] 12.6 g/dL Low 13.0-16.5 [facility] Immature granulocytes/100 WB C Auto (Bld)Ordered By: Keven Etienne on 08-14-2024 Immature granulocytes/100 WBC (Bld) 0.300 % 0.0-0.9 [facility] MCV (mean corpuscular volume ) determinationOrdered By: Keven Etienne on 08-14-2024 MCV (RBC) [Entitic vol] 87.7 fL 80-94 [facility] Mean corpuscular hemoglobin (MCH) determinationOrdered By: Keven Etienne on 08-14-2024 MCH (RBC) [Entitic mass] 29.2 pg 27.0-32.0 [facility] Monocyte percentageOrdered B y: Keven Etienne on 08-14-2024 Monocytes/100 WBC (Bld) 9.1 % 0-10 [facility] Neutrophil percentageOrdered By: frannynewman lakekeron Etienne on 08-14-2024 Neutrophils/100 WBC (Bld) 52.5 % 47-70 [facility] No Panel InformationOrdered By: Keven Etienne on 08-14-2024 18 U/L <38 [facility] Platelet countOrdered By: Edwar Etienne on 08-14-2024 Platelets (Bld) [#/Vol] 201 10*3/uL 150-450 [facility] Potassium measurement (mass/ volume)Ordered By: Keven Etienne on 08-14-2024 Potassium (Unsp spec) [Mass/Vol] 3.9 mmol/L 3.3-5.1 [facility] RBC Auto (Bld) [#/Vol]Ordere d By: Keven Etienne on 08-14-2024 RBC (Bld) [#/Vol] 4.32 10*6/uL Low 4.6-6.2 [facility] Serum creatinine measurement (mass/volume)Ordered By: Keven Etienne on 08-14-2024 Creatinine [Mass/Vol] 0.82 mg/dL 0.70-1.20 [facility] Serum globulin measurementOr dered By: Keven Etienne on 08-14-2024 Globulin (S) [Mass/Vol] 2.3 g/dL 2.2-4.2 [facility] Serum glucose measurement (m ass/volume)Ordered By: Keven Etienne on 08-14-2024 Glucose [Mass/Vol] 91 mg/dL 70-99 [facility] Serum or plasma alanine olmedo otransferase (ALT) measurementOrdered By: Keven Etienne on 08-14-2024 ALT [Catalytic activity/Vol] 22 U/L <47 [facility] Serum or plasma albumin ratna urement (mass/volume)Ordered By: Keven Etienne on 08-14-2024 Albumin [Mass/Vol] 3.5 g/dL 3.4-4.8 [facility] Serum or plasma albumin/glob ulin mass ratioOrdered By: Keven Etienne on 08-14-2024 Albumin/Globulin [Mass ratio] 1.6 {ratio} 0.9-2.4 [facility] Serum or plasma alkaline garry sphatase measurementOrdered By: Keevn Etienne 08-14-2024 ALP [Catalytic activity/Vol] 113 U/L 40-129 [facility] Serum or plasma calcium ratna urement (mass/volume)Ordered By: Keven Etienne 08-14-2024 Calcium [Mass/Vol] 9.1 mg/dL 7.6-11.0 [facility] Serum or plasma urea nitroge n measurement (mass/volume)Ordered By: Keven Etienne on 08-14-2024 Urea nitrogen [Mass/Vol] 12 mg/dL 4-19 [facility] Sodium levelOrdered By: Rita Etienne on 08-14-2024 Sodium [Moles/Vol] 141 mmol/L 133-145 [facility] Total proteinOrdered By: Roby Etienne on 08-14-2024 Protein [Mass/Vol] 5.8 g/dL Low 5.9-8.4 [facility] White blood cell (WBC) count Ordered By: Keven Etienne on 08-14-2024 WBC (Bld) [#/Vol] 7.5 10*3/uL 4.4-11.0 [facility] 12 Lead EKGon 08-11-2024 12 Lead EKG Normal [facility] Absolute lymphocyte countOrd ered By: Keanu Zurita on 08-11-2024 Lymphocytes Auto (Unsp spec) [#/Vol] 1.80 10*3/uL 0.83-4.51 [facility] Anion gap in Serum or Plasma Ordered By: Keanu Zurita on 08-11-2024 Anion gap [Moles/Vol] 11 mmol/L 5-15 [facility] Automated lymphocyte count a s percentage of total leukocytesOrdered By: Keanu Zurita on 08-11-2024 Lymphocytes/100 WBC Auto (Unsp spec) 24.2 % 19-41 [facility] BUN/creatinine ratioOrdered By: Keanu Zurita on 08-11-2024 Urea nitrogen/Creatinine [Mass ratio] 16.9 mg/mg 10- [facility] Basic Metabolic Profile (BMP )on 08-11-2024 BUN/CRE 16.9 RATIO Normal - [facility] Comment on above: Performed By: #### L 500.2500, L100.0100 ####[facility] [address] [place], [address] Calcium [Mass/Vol] 9.0 mg/dL Normal 7.6-11.0 [facility] Comment on above: Performed By: #### L 500.2500, L100.0100 ####[facility] [address] [place], [address] Chloride [Moles/Vol] 102 mmol/L Normal 98-108 [facility] Comment on above: Performed By: #### L 500.2500, L100.0100 ####[facility] [address] [place], [address] CO2 [Moles/Vol] 25.3 mmol/L Normal 21.0-32.0 [facility] Comment on above: Performed By: #### L 500.2500, L100.0100 ####[facility] [address] [place], [address] ECRCL 66.39 ml/min Normal 50-250 [facility] Comment on above: Performed By: #### L 500.2500, L100.0100 ####[facility] [address] [place], [address] GAP 11 Normal 5-15 [facility] Comment on above: Performed By: #### L 500.2500, L100.0100 ####[facility] [address] [place], [address] GFR/1.73 sq M.predicted among non-blacks MDRD (S/P/Bld) [Vol rate/Area] 87 mL/min/{1.73_m2} Normal >60 [facility] Comment on above: Result Comment: mL/m in/1.73m2 CKD-EPI Creatinine Equation (2020) Performed By: #### L 500.2500, L100.0100 ####[facility] [address] [place], [address] Potassium [Moles/Vol] 4.2 mmol/L Normal 3.3-5.1 [facility] Comment on above: Result Comment: Hemo lysis present, Results??could be affected.?? Performed By: #### L 500.2500, L100.0100 ####[facility] [address] [place], [address] Sodium [Moles/Vol] 138 mmol/L Normal 133-145 [facility] Comment on above: Performed By: #### L 500.2500, L100.0100 ####[facility] [address] [place], [address] Creatinine [Mass/Vol] 0.83 mg/dL Normal 0.70-1.20 [facility] Comment on above: Performed By: #### L 500.2500, L100.0100 ####[facility] [address] [place], [address] Glucose [Mass/Vol] 98 mg/dL Normal 70-99 [facility] Comment on above: Performed By: #### L 500.2500, L100.0100 ####[facility] [address] [place], [address] Urea nitrogen [Mass/Vol] 14 mg/dL Normal 4-19 [facility] Comment on above: Performed By: #### L 500.2500, L100.0100 ####[facility] [address] [place], [address] Basophil percentageOrdered B y: Keanu Zurita on 08-11-2024 Basophils/100 WBC (Bld) 0.5 % 0-1 [facility] Bilirubin Test strip Ql (U)O rdered By: Keanu Zurita on 08-11-2024 Bilirubin Ql (U) Negative Negative [facility] Brain/Head without Contrasto n 08-11-2024 Brain/Head without Contrast Normal [facility] CBC W/Diff, Automatedon 07-0 Absolute Lymph 1.80 X10 3/uL Normal 0.83-4.51 [facility] Comment on above: Performed By: #### L 500.2500, L100.0100 ####[facility] [address] [place], [address] Absolute Neut 4.7 X10 3/uL Normal 2.0-7.7 [facility] Comment on above: Performed By: #### L 500.2500, L100.0100 ####[facility] [address] [place], [address] Basophils/100 WBC (Bld) 0.5 % Normal 0-1 [facility] Comment on above: Performed By: #### L 500.2500, L100.0100 ####[facility] [address] [place], [address] Eosinophils/100 WBC (Bld) 2.6 % Normal 0-5 [facility] Comment on above: Performed By: #### L 500.2500, L100.0100 ####[facility] [address] [place], [address] Erythrocyte distribution width (RBC) [Ratio] 12.6 % Normal 11.6-14.6 [facility] Comment on above: Performed By: #### L 500.2500, L100.0100 ####[facility] [address] [place], [address] Hematocrit (Bld) [Volume fraction] 38.3 % Low 40-54 [facility] Comment on above: Performed By: #### L 500.2500, L100.0100 ####[facility] [address] [place], [address] Hemoglobin (Bld) [Mass/Vol] 12.9 g/dL Low 13.0-16.5 [facility] Comment on above: Performed By: #### L 500.2500, L100.0100 ####[facility] [address] [place], [address] IG% 0.400 Normal 0.0-0.9 [facility] Comment on above: Result Comment: IG% - Immature Granulocytes (promyelocytes, myelocytes andmetamyelocytes) > 1% indicates that a LEFT SHIFT is Present. Performed By: #### L 500.2500, L100.0100 ####[facility] [address] [place], [address] Lymphocytes/100 WBC (Bld) 24.2 % Normal 19-41 [facility] Comment on above: Performed By: #### L 500.2500, L100.0100 ####[facility] [address] [place], [address] MCH (RBC) [Entitic mass] 28.9 pg Normal 27.0-32.0 [facility] Comment on above: Performed By: #### L 500.2500, L100.0100 ####[facility] [address] [place], [address] MCHC (RBC) [Mass/Vol] 33.7 g/dL Normal 32-36 [facility] Comment on above: Performed By: #### L 500.2500, L100.0100 ####[facility] [address] [place], [address] MCV (RBC) [Entitic vol] 85.7 fL Normal 80-[address] [facility] Comment on above: Performed By: #### L 500.2500, L100.0100 ####[facility] [address] [place], [address] Monocytes/100 WBC (Bld) 9.1 % Normal 0-[address] [facility] Comment on above: Performed By: #### L 500.2500, L100.0100 ####[facility] [address] [place], [address] Neutrophils/100 WBC (Bld) 63.2 % Normal 47-70 [facility] Comment on above: Performed By: #### L 500.2500, L100.0100 ####[facility] [address] [place], [address] Nucleated RBC (Bld) [#/Vol] 0 10*3/uL Normal 0-5 [facility] Comment on above: Performed By: #### L 500.2500, L100.0100 ####[facility] [address] [place], [address] Platelet mean volume (Bld) [Entitic vol] 8.5 fL Normal 6.2-12.0 [facility] Comment on above: Performed By: #### L 500.2500, L100.0100 ####[facility] [address] [place], [address] Platelets (Bld) [#/Vol] 216 10*3/uL Normal 150-450 [facility] Comment on above: Performed By: #### L 500.2500, L100.0100 ####[facility] [address] [place], [address] RBC (Bld) [#/Vol] 4.47 10*6/uL Low 4.6-6.2 [facility] Comment on above: Performed By: #### L 500.2500, L100.0100 ####[facility] [address] [place], [address] RDW SD 39.3 fl Normal 35.1-43.9 [facility] Comment on above: Performed By: #### L 500.2500, L100.0100 ####[facility] [address] [place], [address] WBC (Bld) [#/Vol] 7.5 10*3/uL Normal 4.4-11.0 [facility] Comment on above: Performed By: #### L 500.2500, L100.0100 ####[facility] [address] [place], [address] Carbon dioxide, total [Moles /volume] in Central venous bloodOrdered By: Keanu Zurita on 08-11-2024 CO2 [Moles/Vol] 25.3 mmol/L 21.0-32.0 [facility] Chloride assayOrdered By: Shane Zurita on 08-11-2024 Chloride [Moles/Vol] 102 mmol/L 98-108 [facility] Emergency Department Summary on 08-11-2024 Emergency Department Summary Normal [facility] Eosinophil percentageOrdered By: Keanu Zurita on 08-11-2024 Eosinophils/100 WBC (Bld) 2.6 % 0-5 [facility] Erythrocyte distribution wid th ratioOrdered By: Keanu Zurita on 08-11-2024 Erythrocyte distribution width (RBC) [Ratio] 12.6 % 11.6-14.6 [facility] Erythrocyte distribution wid th standard deviationOrdered By: Keanu Zurita on 08-11-2024 Erythrocyte distribution width (RBC) [Ratio] 39.3 fl 35.1-43.9 [facility] Glomerular filtration rate ( GFR) estimation/1.73 sq m using serum, plasma, or whole bOrdered By: Keanu Zurita on 08-11-2024 GFR/1.73 sq M.predicted among non-blacks MDRD (S/P/Bld) [Vol rate/Area] 87 mL/min/{1.73_m2} >60 [facility] Hematocrit Auto (Bld) [Volum e fraction]Ordered By: Keanu Zurita on 08-11-2024 Hematocrit (Bld) [Volume fraction] 38.3 % Low 40-54 [facility] Hemoglobin measurementOrdere d By: Keanu Zurita on 08-11-2024 Hemoglobin (Bld) [Mass/Vol] 12.9 g/dL Low 13.0-16.5 [facility] Immature granulocytes/100 WB C Auto (Bld)Ordered By: Keanu Zurita on 08-11-2024 Immature granulocytes/100 WBC (Bld) 0.400 % 0.0-0.9 [facility] Ketones Test strip Ql (U)Ord ered By: Keanu Zurita on 08-11-2024 Ketones Ql (U) Negative Negative [facility] MCV (mean corpuscular volume ) determinationOrdered By: Keanu Zurita on 08-11-2024 MCV (RBC) [Entitic vol] 85.7 fL 80-94 [facility] Mean corpuscular hemoglobin (MCH) determinationOrdered By: Keanu Zurita on 08-11-2024 MCH (RBC) [Entitic mass] 28.9 pg 27.0-32.0 [facility] Monocyte percentageOrdered B y: Keanu Zurita on 08-11-2024 Monocytes/100 WBC (Bld) 9.1 % 0-10 [facility] Mucus LM Ql (Urine sed)Order ed By: Keanu Zurita on 08-11-2024 Mucus Ql (Urine sed) 0 SEEN /hpf [facility] Neutrophil percentageOrdered By: Keanu Zurita on 08-11-2024 Neutrophils/100 WBC (Bld) 63.2 % 47-70 [facility] Nitrite Test strip Ql (U)Ord ered By: Keanu Zurita on 08-11-2024 Nitrite Ql (U) Negative Negative [facility] Platelet countOrdered By: Shane Zurita on 08-11-2024 Platelets (Bld) [#/Vol] 216 10*3/uL 150-450 [facility] Potassium measurement (mass/ volume)Ordered By: Keanu Zurita on 08-11-2024 Potassium (Unsp spec) [Mass/Vol] 4.2 mmol/L 3.3-5.1 [facility] Protein Test strip Ql (U)Ord ered By: Keanu Zurita on 08-11-2024 Protein Ql (U) 15 mg/dl High Negative [facility] RBC Auto (Bld) [#/Vol]Ordere d By: Keanu Zurita on 08-11-2024 RBC (Bld) [#/Vol] 4.47 10*6/uL Low 4.6-6.2 [facility] Serum creatinine measurement (mass/volume)Ordered By: Keanu Zurita on 08-11-2024 Creatinine [Mass/Vol] 0.83 mg/dL 0.70-1.20 [facility] Serum glucose measurement (m ass/volume)Ordered By: Keanu Zurita on 08-11-2024 Glucose [Mass/Vol] 98 mg/dL 70-99 [facility] Serum or plasma calcium ratna urement (mass/volume)Ordered By: Keanu Zurita on 08-11-2024 Calcium [Mass/Vol] 9.0 mg/dL 7.6-11.0 [facility] Serum or plasma urea nitroge n measurement (mass/volume)Ordered By: Keanu Zurita on 08-11-2024 Urea nitrogen [Mass/Vol] 14 mg/dL 4-19 [facility] Sodium levelOrdered By: Keanu Zurita on 08-11-2024 Sodium [Moles/Vol] 138 mmol/L 133-145 [facility] Squamous epithelial cells de tection in urine sediment by light microscopyOrdered By: Keanu Zurita on 08-11-2024 Epithelial cells.squamous LM Ql (Urine sed) 0 SEEN /hpf 0-5 [facility] Urinalysis, Completeon 08-11 BACTERIA 0 SEEN Normal None Seen [facility] Comment on above: Order Comment: CLEAN CATCH Performed By: #### L 400.0001 ####[facility] [address] [facility] [address] EPI,SQUAMOUS 0 SEEN Normal 0-5 [facility] Comment on above: Order Comment: CLEAN CATCH Performed By: #### L 400.0001 ####[facility] [address] [place], [address] Mucus Ql (Urine sed) 0 SEEN Normal [facility] Comment on above: Order Comment: CLEAN CATCH Performed By: #### L 400.0001 ####[facility] [address] [place], [address] RBC 0 SEEN Normal 0-5 [facility] Comment on above: Order Comment: CLEAN CATCH Performed By: #### L 400.0001 ####[facility] [address] [place], [address] WBC 0 SEEN Normal 0-5 [facility] Comment on above: Order Comment: CLEAN CATCH Performed By: #### L 400.0001 ####[facility] [address] [facility] [address] Urine clarityOrdered By: Eleanor Zurita on 08-11-2024 Clarity (U) Clear Clear [facility] Urine color determinationOrd ered By: Keanu Zurita on 08-11-2024 Color (U) YELLOW Yellow [facility] Urine glucose detectionOrder ed By: Keanu Zurita on 08-11-2024 Glucose Ql (U) Normal mg/dl Normal [facility] Urine leukocyte esterase det ection by dipstickOrdered By: Keanu Zurita on 08-11-2024 Leukocyte esterase Test strip Ql (U) Negative Negative [facility] Urine pHOrdered By: Keanu adrian on 08-11-2024 pH (U) 6.0 [pH] 5.0 - 8.0 [facility] Urine sediment bacteria coun t by microscopy (number/high power field)Ordered By: Keanu Zurita on 08-11-2024 Bacteria LM.HPF (Urine sed) [#/Area] 0 /[HPF] None Seen [facility] Urine specific gravity measu rementOrdered By: Keanu Zurita on 08-11-2024 Specific gravity (U) [Rel density] 1.015 1.002-1.030 [facility] Urine urobilinogen measureme ntOrdered By: Keanu Zurita on 08-11-2024 Urobilinogen Ql (U) 1 mg/dl High Normal [facility] White blood cell (WBC) count Ordered By: Keanu Zurita on 08-11-2024 WBC (Bld) [#/Vol] 7.5 10*3/uL 4.4-11.0 [facility] White blood cell countOrdere d By: Keanu Zurita on 08-11-2024 White blood cell count 0 SEEN /hpf 0-[address] [facility] Absolute lymphocyte countOrd ered By: Yu Bradley on 08-06-2024 Lymphocytes Auto (Unsp spec) [#/Vol] 2.53 10*3/uL 0.83-4.51 [facility] Anion gap in Serum or Plasma Ordered By: Yu Bradley on 08-06-2024 Anion gap [Moles/Vol] 10 mmol/L 5-15 [facility] Automated lymphocyte count a s percentage of total leukocytesOrdered By: Yu Bradley on 08-06-2024 Lymphocytes/100 WBC Auto (Unsp spec) 36.2 % 19-41 [facility] BUN/creatinine ratioOrdered By: Yu Bradley on 08-06-2024 Urea nitrogen/Creatinine [Mass ratio] 15.7 mg/mg 10-20 [facility] Basic Metabolic Profile (BMP )on 08-06-2024 BUN/CRE 15.7 RATIO Normal 10-20 [facility] Comment on above: Performed By: #### L 100.0100, L500.2500, L509.6001 ####[facility] [address] [place], [address] Calcium [Mass/Vol] 8.7 mg/dL Normal 7.6-11.0 [facility] Comment on above: Performed By: #### L 100.0100, L500.2500, L509.6001 ####[facility] [address] [place], [address] Chloride [Moles/Vol] 106 mmol/L Normal 98-108 [facility] Comment on above: Performed By: #### L 100.0100, L500.2500, L509.6001 ####[facility] [address] [place], [address] CO2 [Moles/Vol] 23.8 mmol/L Normal 21.0-32.0 [facility] Comment on above: Performed By: #### L 100.0100, L500.2500, L509.6001 ####[facility] [address] [place], [address] Creatinine [Mass/Vol] 0.91 mg/dL Normal 0.70-1.20 [facility] Comment on above: Performed By: #### L 100.0100, L500.2500, L509.6001 ####[facility] [address] [place], [address] ECRCL 60.55 ml/min Normal 50-250 [facility] Comment on above: Performed By: #### L 100.0100, L500.2500, L509.6001 ####[facility] [address] [place], [address] GAP 10 Normal 5-15 [facility] Comment on above: Performed By: #### L 100.0100, L500.2500, L509.6001 ####[facility] [address] [place], [address] GFR/1.73 sq M.predicted among non-blacks MDRD (S/P/Bld) [Vol rate/Area] 85 mL/min/{1.73_m2} Normal >60 [facility] Comment on above: Result Comment: mL/m in/1.73m2 CKD-EPI Creatinine Equation (2020) Performed By: #### L 100.0100, L500.2500, L509.6001 ####[facility] [address] [place], [address] Glucose [Mass/Vol] 93 mg/dL Normal 70-99 [facility] Comment on above: Performed By: #### L 100.0100, L500.2500, L509.6001 ####[facility] [address] [place], [address] Potassium [Moles/Vol] 4.1 mmol/L Normal 3.3-5.1 [facility] Comment on above: Performed By: #### L 100.0100, L500.2500, L509.6001 ####[facility] [address] [place], [address] Sodium [Moles/Vol] 140 mmol/L Normal 133-145 [facility] Comment on above: Performed By: #### L 100.0100, L500.2500, L509.6001 ####[facility] [address] [place], [address] Urea nitrogen [Mass/Vol] 14 mg/dL Normal 4-19 [facility] Comment on above: Performed By: #### L 100.0100, L500.2500, L509.6001 ####[facility] [address] [place], [address] Basophil percentageOrdered B y: Yu Bradley on 08-06-2024 Basophils/100 WBC (Bld) 0.6 % 0-1 [facility] CBC W/Diff, Automatedon 06-2 -2024 Absolute Lymph 2.53 X10 3/uL Normal 0.83-4.51 [facility] Comment on above: Performed By: #### L 100.0100, L500.2500, L509.6001 ####[facility] [address] [place], [address] Absolute Neut 3.4 X10 3/uL Normal 2.0-7.7 [facility] Comment on above: Performed By: #### L 100.0100, L500.2500, L509.6001 ####[facility] [address] [place], [address] Basophils/100 WBC (Bld) 0.6 % Normal 0-1 [facility] Comment on above: Performed By: #### L 100.0100, L500.2500, L509.6001 ####[facility] [address] [place], [address] Eosinophils/100 WBC (Bld) 4.2 % Normal 0-5 [facility] Comment on above: Performed By: #### L 100.0100, L500.2500, L509.6001 ####[facility] [address] [place], [address] Erythrocyte distribution width (RBC) [Ratio] 12.8 % Normal 11.6-14.6 [facility] Comment on above: Performed By: #### L 100.0100, L500.2500, L509.6001 ####[facility] [address] [place], [address] Hematocrit (Bld) [Volume fraction] 34.8 % Low 40-54 [facility] Comment on above: Performed By: #### L 100.0100, L500.2500, L509.6001 ####[facility] [address] [place], [address] Hemoglobin (Bld) [Mass/Vol] 11.6 g/dL Low 13.0-16.5 [facility] Comment on above: Performed By: #### L 100.0100, L500.2500, L509.6001 ####[facility] [address] [place], [address] IG% 0.300 Normal 0.0-0.9 [facility] Comment on above: Result Comment: IG% - Immature Granulocytes (promyelocytes, myelocytes andmetamyelocytes) > 1% indicates that a LEFT SHIFT is Present. Performed By: #### L 100.0100, L500.2500, L509.6001 ####[facility] [address] [place], [address] Lymphocytes/100 WBC (Bld) 36.2 % Normal 19-41 [facility] Comment on above: Performed By: #### L 100.0100, L500.2500, L509.6001 ####[facility] [address] [place], [address] MCH (RBC) [Entitic mass] 28.9 pg Normal 27.0-32.0 [facility] Comment on above: Performed By: #### L 100.0100, L500.2500, L509.6001 ####[facility] [address] [place], [address] MCHC (RBC) [Mass/Vol] 33.3 g/dL Normal 32-36 [facility] Comment on above: Performed By: #### L 100.0100, L500.2500, L509.6001 ####[facility] [address] [place], [address] MCV (RBC) [Entitic vol] 86.8 fL Normal 80-94 [facility] Comment on above: Performed By: #### L 100.0100, L500.2500, L509.6001 ####[facility] [address] [place], [address] Monocytes/100 WBC (Bld) 10.5 % High 0-10 [facility] Comment on above: Performed By: #### L 100.0100, L500.2500, L509.6001 ####[facility] [address] [place], [address] Neutrophils/100 WBC (Bld) 48.2 % Normal 47-70 [facility] Comment on above: Performed By: #### L 100.0100, L500.2500, L509.6001 ####[facility] [address] [place], [address] Nucleated RBC (Bld) [#/Vol] 0 10*3/uL Normal 0-5 [facility] Comment on above: Performed By: #### L 100.0100, L500.2500, L509.6001 ####[facility] [address] [place], [address] Platelet mean volume (Bld) [Entitic vol] 8.6 fL Normal 6.2-12.0 [facility] Comment on above: Performed By: #### L 100.0100, L500.2500, L509.6001 ####[facility] [address] [place], [address] Platelets (Bld) [#/Vol] 186 10*3/uL Normal 150-450 [facility] Comment on above: Performed By: #### L 100.0100, L500.2500, L509.6001 ####[facility] [address] [place], [address] RBC (Bld) [#/Vol] 4.01 10*6/uL Low 4.6-6.2 [facility] Comment on above: Performed By: #### L 100.0100, L500.2500, L509.6001 ####[facility] [address] [place], [address] RDW SD 40.7 fl Normal 35.1-43.9 [facility] Comment on above: Performed By: #### L 100.0100, L500.2500, L509.6001 ####[facility] [address] [place], [address] WBC (Bld) [#/Vol] 7.0 10*3/uL Normal 4.4-11.0 [facility] Comment on above: Performed By: #### L 100.0100, L500.2500, L509.6001 ####[facility] [address] [place], [address] Carbon dioxide, total [Moles /volume] in Central venous bloodOrdered By: Yu Bradley on 08-06-2024 CO2 [Moles/Vol] 23.8 mmol/L 21.0-32.0 [facility] Chloride assayOrdered By: Yady Bradley on 08-06-2024 Chloride [Moles/Vol] 106 mmol/L 98-108 [facility] Eosinophil percentageOrdered By: Yu Bradley on 08-06-2024 Eosinophils/100 WBC (Bld) 4.2 % 0-5 [facility] Erythrocyte distribution wid th ratioOrdered By: Yu Bradley on 08-06-2024 Erythrocyte distribution width (RBC) [Ratio] 12.8 % 11.6-14.6 [facility] Erythrocyte distribution wid th standard deviationOrdered By: Yu Bradley on 08-06-2024 Erythrocyte distribution width (RBC) [Ratio] 40.7 fl 35.1-43.9 [facility] Glomerular filtration rate ( GFR) estimation/1.73 sq m using serum, plasma, or whole bOrdered By: Yu Bradley on 08-06-2024 GFR/1.73 sq M.predicted among non-blacks MDRD (S/P/Bld) [Vol rate/Area] 85 mL/min/{1.73_m2} >60 [facility] Hematocrit Auto (Bld) [Volum e fraction]Ordered By: Yu Bradley on 08-06-2024 Hematocrit (Bld) [Volume fraction] 34.8 % Low 40-54 [facility] Hemoglobin measurementOrdere d By: Yu Bradley on 08-06-2024 Hemoglobin (Bld) [Mass/Vol] 11.6 g/dL Low 13.0-16.5 [facility] Immature granulocytes/100 WB C Auto (Bld)Ordered By: Yu Bradley on 08-06-2024 Immature granulocytes/100 WBC (Bld) 0.300 % 0.0-0.9 [facility] L509.6001on 08-06-2024 CORTISOL 16.30 ug/dL Normal 6.02-18.40 [facility] Comment on above: Performed By: #### L 100.0100, L500.2500, L509.6001 ####[facility] [address] [place], [address] MCV (mean corpuscular volume ) determinationOrdered By: Yu Bradley on 08-06-2024 MCV (RBC) [Entitic vol] 86.8 fL 80-94 [facility] Mean corpuscular hemoglobin (MCH) determinationOrdered By: Yu Bradley on 08-06-2024 MCH (RBC) [Entitic mass] 28.9 pg 27.0-32.0 [facility] Monocyte percentageOrdered B y: Yu Bradley on 08-06-2024 Monocytes/100 WBC (Bld) 10.5 % High 0-10 [facility] Neutrophil percentageOrdered By: Yu Bradley on 08-06-2024 Neutrophils/100 WBC (Bld) 48.2 % 47-70 [facility] Platelet countOrdered By: Yady Bradley on 08-06-2024 Platelets (Bld) [#/Vol] 186 10*3/uL 150-450 [facility] Potassium measurement (mass/ volume)Ordered By: Yu Bradley on 08-06-2024 Potassium (Unsp spec) [Mass/Vol] 4.1 mmol/L 3.3-5.1 [facility] RBC Auto (Bld) [#/Vol]Ordere d By: Yu Bradley on 08-06-2024 RBC (Bld) [#/Vol] 4.01 10*6/uL Low 4.6-6.2 [facility] Serum creatinine measurement (mass/volume)Ordered By: Yu Bradley on 08-06-2024 Creatinine [Mass/Vol] 0.91 mg/dL 0.70-1.20 [facility] Serum glucose measurement (m ass/volume)Ordered By: Yu Bradley on 08-06-2024 Glucose [Mass/Vol] 93 mg/dL 70-99 [facility] Serum or plasma calcium ratna urement (mass/volume)Ordered By: Yu Bradley on 08-06-2024 Calcium [Mass/Vol] 8.7 mg/dL 7.6-11.0 [facility] Serum or plasma cortisol darline surement (mass/volume)Ordered By: Yu Bradley on 08-06-2024 Cortisol [Mass/Vol] 16.30 ug/dL 6.02-18.40 [facility] Serum or plasma urea nitroge n measurement (mass/volume)Ordered By: Yu Bradley on 08-06-2024 Urea nitrogen [Mass/Vol] 14 mg/dL 4-19 [facility] Sodium levelOrdered By: Kj Bradley on 08-06-2024 Sodium [Moles/Vol] 140 mmol/L 133-145 [facility] White blood cell (WBC) count Ordered By: Yu Bradley on 08-06-2024 WBC (Bld) [#/Vol] 7.0 10*3/uL 4.4-11.0 [facility] Absolute lymphocyte countOrd ered By: Kaoyde Woods on 08-05-2024 Lymphocytes Auto (Unsp spec) [#/Vol] 2.63 10*3/uL 0.83-4.51 [facility] Anion gap in Serum or Plasma Ordered By: Kayode Woods on 08-05-2024 Anion gap [Moles/Vol] 12 mmol/L 5-15 [facility] Automated blood erythrocyte countOrdered By: Kayode Woods on 08-05-2024 RBC (Bld) [#/Vol] 4.22 10*6/uL Low 4.6-6.2 [facility] Comment on above: Performed By: #### L 503.6005, L501.2450, L100.0100, L500.4050, L501.4021 ####[facility] [address] [place], [address] Automated blood hematocrit ( percentage)Ordered By: Kayode Woods on 08-05-2024 Hematocrit (Bld) [Volume fraction] 37.0 % Low 40-54 [facility] Comment on above: Performed By: #### L 503.6005, L501.2450, L100.0100, L500.4050, L501.4021 ####[facility] [address] [place], [address] Automated lymphocyte count a s percentage of total leukocytesOrdered By: Kayode Woods on 08-05-2024 Lymphocytes/100 WBC Auto (Unsp spec) 31.4 % 19-41 [facility] BUN/creatinine ratioOrdered By: Kayode Woods on 08-05-2024 Urea nitrogen/Creatinine [Mass ratio] 21.1 mg/mg High 10-20 [facility] Basophil percentageOrdered B y: Kayode Woods on 08-05-2024 Basophils/100 WBC (Bld) 0.5 % Normal 0-1 [facility] Comment on above: Performed By: #### L 503.6005, L501.2450, L100.0100, L500.4050, L501.4021 ####[facility] [address] [place], [place], [address] Bilirubin Test strip Ql (U)O rdered By: Kayode Woods on 08-05-2024 Bilirubin Ql (U) Negative Negative [facility] Bilirubin, totalOrdered By: Kayode Woods on 08-05-2024 Bilirubin [Mass/Vol] 0.41 mg/dL 0.00-1.30 [facility] Comment on above: Performed By: #### L 503.6005, L501.2450, L100.0100, L500.4050, L501.4021 ####[facility] [address] [place], [address] Brain/Head without Contrasto n 08-05-2024 Brain/Head without Contrast Normal [facility] CBC W/Diff, Automatedon 06- Absolute Lymph 2.63 X10 3/uL Normal 0.83-4.51 [facility] Comment on above: Performed By: #### L 503.6005, L501.2450, L100.0100, L500.4050, L501.4021 ####[facility] [address] [place], [address] Absolute Neut 4.8 X10 3/uL Normal 2.0-7.7 [facility] Comment on above: Performed By: #### L 503.6005, L501.2450, L100.0100, L500.4050, L501.4021 ####[facility] [address] [place], [address] IG% 0.200 Normal 0.0-0.9 [facility] Comment on above: Result Comment: IG% - Immature Granulocytes (promyelocytes, myelocytes andmetamyelocytes) > 1% indicates that a LEFT SHIFT is Present. Performed By: #### L 503.6005, L501.2450, L100.0100, L500.4050, L501.4021 ####[facility] [address] [place], [address] Lymphocytes/100 WBC (Bld) 31.4 % Normal 19-41 [facility] Comment on above: Performed By: #### L 503.6005, L501.2450, L100.0100, L500.4050, L501.4021 ####[facility] [address] [place], [address] MCHC (RBC) [Mass/Vol] 33.2 g/dL Normal 32-36 [facility] Comment on above: Performed By: #### L 503.6005, L501.2450, L100.0100, L500.4050, L501.4021 ####[facility] [address] [place], [address] Nucleated RBC (Bld) [#/Vol] 0 10*3/uL Normal 0-5 [facility] Comment on above: Performed By: #### L 503.6005, L501.2450, L100.0100, L500.4050, L501.4021 ####[facility] [address] [place], [address] Platelet mean volume (Bld) [Entitic vol] 8.7 fL Normal 6.2-12.0 [facility] Comment on above: Performed By: #### L 503.6005, L501.2450, L100.0100, L500.4050, L501.4021 ####[facility] [address] [place], [address] RDW SD 41.0 fl Normal 35.1-43.9 [facility] Comment on above: Performed By: #### L 503.6005, L501.2450, L100.0100, L500.4050, L501.4021 ####[facility] [address] [place], [address] Carbon dioxide, total [Moles /volume] in Central venous bloodOrdered By: Kayode Woods on 08-05-2024 CO2 [Moles/Vol] 23.8 mmol/L Normal 21.0-32.0 [facility] Comment on above: Performed By: #### L 503.6005, L501.2450, L100.0100, L500.4050, L501.4021 ####[facility] [address] [place], [address] Chloride assayOrdered By: Tan Woods on 08-05-2024 Chloride [Moles/Vol] 103 mmol/L Normal 98-108 [facility] Comment on above: Performed By: #### L 503.6005, L501.2450, L100.0100, L500.4050, L501.4021 ####[facility] [address] [place], [address] Comprehensive Metabolic Prof annemarie 08-05-2024 ALK PHOS 120 U/L Normal 40-129 [facility] Comment on above: Performed By: #### L 503.6005, L501.2450, L100.0100, L500.4050, L501.4021 ####[facility] [address] [place], [address] AST [Catalytic activity/Vol] 25 U/L Normal <=37 [facility] Comment on above: Performed By: #### L 503.6005, L501.2450, L100.0100, L500.4050, L501.4021 ####[facility] [address] [place], [address] BUN/CRE 21.1 RATIO High 10-20 [facility] Comment on above: Performed By: #### L 503.6005, L501.2450, L100.0100, L500.4050, L501.4021 ####[facility] [address] [place], [address] ECRCL 63.33 ml/min Normal 50-250 [facility] Comment on above: Performed By: #### L 503.6005, L501.2450, L100.0100, L500.4050, L501.4021 ####[facility] [address] [place], [address] GAP 12 Normal 5-15 [facility] Comment on above: Performed By: #### L 503.6005, L501.2450, L100.0100, L500.4050, L501.4021 ####[facility] [address] [place], [address] Potassium [Moles/Vol] 4.3 mmol/L Normal 3.3-5.1 [facility] Comment on above: Performed By: #### L 503.6005, L501.2450, L100.0100, L500.4050, L501.4021 ####[facility] [address] [place], [address] T PROT 6.4 g/dL Normal 5.9-8.4 [facility] Comment on above: Performed By: #### L 503.6005, L501.2450, L100.0100, L500.4050, L501.4021 ####[facility] [address] [place], [address] Emergency Department Summary on 08-05-2024 Emergency Department Summary Normal [facility] Eosinophil percentageOrdered By: Kayode Woods on 08-05-2024 Eosinophils/100 WBC (Bld) 2.0 % Normal 0-5 [facility] Comment on above: Performed By: #### L 503.6005, L501.2450, L100.0100, L500.4050, L501.4021 ####[facility] [address] [place], [address] Erythrocyte distribution wid th ratioOrdered By: Kayode Woods on 08-05-2024 Erythrocyte distribution width (RBC) [Ratio] 12.9 % Normal 11.6-14.6 [facility] Comment on above: Performed By: #### L 503.6005, L501.2450, L100.0100, L500.4050, L501.4021 ####[facility] [address] [place], [address] Erythrocyte distribution wid th standard deviationOrdered By: Kayode Woods on 08-05-2024 Erythrocyte distribution width (RBC) [Ratio] 41.0 fl 35.1-43.9 [facility] Glomerular filtration rate ( GFR) estimation/1.73 sq m using serum, plasma, or whole bOrdered By: Kayode Woods on 08-05-2024 GFR/1.73 sq M.predicted among non-blacks MDRD (S/P/Bld) [Vol rate/Area] 86 mL/min/{1.73_m2} Normal >60 [facility] Comment on above: Result Comment: mL/m in/1.73m2 CKD-EPI Creatinine Equation (2020) Performed By: #### L 503.6005, L501.2450, L100.0100, L500.4050, L501.4021 ####[facility] [address] [place], [address] H AND P Exam - Hospitaliston 08-05-2024 H&P Exam - Hospitalist Normal [facility] Hemoglobin measurementOrdere d By: Kayode Woods on 08-05-2024 Hemoglobin (Bld) [Mass/Vol] 12.3 g/dL Low 13.0-16.5 [facility] Comment on above: Performed By: #### L 503.6005, L501.2450, L100.0100, L500.4050, L501.4021 ####[facility] [address] [place], [address] Immature granulocytes/100 WB C Auto (Bld)Ordered By: Kayode Woods on 08-05-2024 Immature granulocytes/100 WBC (Bld) 0.200 % 0.0-0.9 [facility] Ketones Test strip Ql (U)Ord ered By: Kayode Woods on 08-05-2024 Ketones Ql (U) Negative Negative [facility] L499.0042on 08-05-2024 Trop T High Sen 36 ng/L High <=22 [facility] Comment on above: Performed By: #### L 499.0042 ####[facility] [address] [place], [address] L499.0043on 08-05-2024 Trop T High Sen 36 ng/L High <=22 [facility] Comment on above: Performed By: #### L 499.0043 ####[facility] [address] [place], [address] L501.4021on 08-05-2024 Trop T High Sen 39 ng/L High <=22 [facility] Comment on above: Performed By: #### L 503.6005, L501.2450, L100.0100, L500.4050, L501.4021 ####[facility] [address] [place], [address] Lactic Acidon 08-05-2024 Lactate [Moles/Vol] 1.3 mmol/L Normal 0.0-2.0 [facility] Comment on above: Order Comment: Y Performed By: #### L 503.6005, L501.2450, L100.0100, L500.4050, L501.4021 ####[facility] [address] [place], [address] Lipaseon 08-05-2024 Lipase [Catalytic activity/Vol] 15 U/L Normal 13-75 [facility] Comment on above: Result Comment: [place] byrd note:LIPASE revised reference range effective 22.New Lipase methodology. Expected to produce lower valuesthan the previous assay method.NEW Reference Range: 13 - 75 U/L Performed By: #### L 503.6005, L501.2450, L100.0100, L500.4050, L501.4021 ####[facility] [address] [place], [address] MCV (mean corpuscular volume ) determinationOrdered By: Kayode Woods on 08-05-2024 MCV (RBC) [Entitic vol] 87.7 fL Normal 80-94 [facility] Comment on above: Performed By: #### L 503.6005, L501.2450, L100.0100, L500.4050, L501.4021 ####[facility] [address] [place], [address] Mean corpuscular hemoglobin (MCH) determinationOrdered By: Kayode Woods on 08-05-2024 MCH (RBC) [Entitic mass] 29.1 pg Normal 27.0-32.0 [facility] Comment on above: Performed By: #### L 503.6005, L501.2450, L100.0100, L500.4050, L501.4021 ####[facility] [address] [place], [place], [address] Monocyte percentageOrdered B y: Kayode Woods on 08-05-2024 Monocytes/100 WBC (Bld) 8.2 % Normal 0-10 [facility] Comment on above: Performed By: #### L 503.6005, L501.2450, L100.0100, L500.4050, L501.4021 ####[facility] [address] [place], [place], [address] Mucus LM Ql (Urine sed)Order ed By: Kayode Woods on 08-05-2024 Mucus Ql (Urine sed) 0 SEEN /hpf [facility] Neutrophil percentageOrdered By: Kayode oWods on 08-05-2024 Neutrophils/100 WBC (Bld) 57.7 % Normal 47-70 [facility] Comment on above: Performed By: #### L 503.6005, L501.2450, L100.0100, L500.4050, L501.4021 ####[facility] [address] [place], [place], [address] Nitrite Test strip Ql (U)Ord ered By: Kayode Woods on 08-05-2024 Nitrite Ql (U) Negative Negative [facility] No Panel InformationOrdered By: Kayode Woods on 08-05-2024 25 U/L <38 [facility] Platelet countOrdered By: Tan Woods on 08-05-2024 Platelets (Bld) [#/Vol] 208 10*3/uL Normal 150-450 [facility] Comment on above: Performed By: #### L 503.6005, L501.2450, L100.0100, L500.4050, L501.4021 ####[facility] [address] [place], [address] Potassium measurement (mass/ volume)Ordered By: Kayode Woods on 08-05-2024 Potassium (Unsp spec) [Mass/Vol] 4.3 mmol/L 3.3-5.1 [facility] Protein Test strip Ql (U)Ord ered By: Kayode Woods on 08-05-2024 Protein Ql (U) Negative Negative [facility] Serum creatinine measurement (mass/volume)Ordered By: Kayode Woods on 08-05-2024 Creatinine [Mass/Vol] 0.87 mg/dL Normal 0.70-1.20 [facility] Comment on above: Performed By: #### L 503.6005, L501.2450, L100.0100, L500.4050, L501.4021 ####[facility] [address] [place], [address] Serum globulin measurementOr dered By: Kayode Woods on 08-05-2024 Globulin (S) [Mass/Vol] 2.4 g/dL 2.2-4.[address] [facility] Comment on above: Performed By: #### L 503.6005, L501.2450, L100.0100, L500.4050, L501.4021 ####[facility] [address] [place], [address] Serum glucose measurement (m ass/volume)Ordered By: Kayode Woods on 08-05-2024 Glucose [Mass/Vol] 93 mg/dL Normal 70-99 [facility] Comment on above: Performed By: #### L 503.6005, L501.2450, L100.0100, L500.4050, L501.4021 ####[facility] [address] [place], [address] Serum or plasma alanine olmedo otransferase (ALT) measurementOrdered By: Kayode Woods on 08-05-2024 ALT [Catalytic activity/Vol] 23 U/L <47 [facility] Comment on above: Performed By: #### L 503.6005, L501.2450, L100.0100, L500.4050, L501.4021 ####[facility] [address] [place], [address] Serum or plasma albumin ratna urement (mass/volume)Ordered By: Kayode Woods on 08-05-2024 Albumin [Mass/Vol] 4.0 g/dL 3.4-4.8 [facility] Comment on above: Performed By: #### L 503.6005, L501.2450, L100.0100, L500.4050, L501.4021 ####[facility] [address] [place], [address] Serum or plasma albumin/glob ulin mass ratioOrdered By: Kayode Woods on 08-05-2024 Albumin/Globulin [Mass ratio] 1.7 {ratio} 0.9-2.4 [facility] Comment on above: Performed By: #### L 503.6005, L501.2450, L100.0100, L500.4050, L501.4021 ####[facility] [address] [place], [address] Serum or plasma alkaline garry sphatase measurementOrdered By: Kayode Woods on 08-05-2024 ALP [Catalytic activity/Vol] 120 U/L 40-129 [facility] Serum or plasma calcium ratna urement (mass/volume)Ordered By: Kayode Woods on 08-05-2024 Calcium [Mass/Vol] 9.4 mg/dL Normal 7.6-11.0 [facility] Comment on above: Performed By: #### L 503.6005, L501.2450, L100.0100, L500.4050, L501.4021 ####[facility] [address] [place], [address] Serum or plasma urea nitroge n measurement (mass/volume)Ordered By: Kayode Woods on 08-05-2024 Urea nitrogen [Mass/Vol] 18 mg/dL Normal 4-19 [facility] Comment on above: Performed By: #### L 503.6005, L501.2450, L100.0100, L500.4050, L501.4021 ####[facility] [address] [place], [address] Sodium levelOrdered By: Edgar Woods on 08-05-2024 Sodium [Moles/Vol] 138 mmol/L Normal 133-145 [facility] Comment on above: Performed By: #### L 503.6005, L501.2450, L100.0100, L500.4050, L501.4021 ####[facility] [address] [place], [address] Spine Cervical without Contr ason 08-05-2024 Spine Cervical without Contras Normal [facility] Squamous epithelial cells de tection in urine sediment by light microscopyOrdered By: Kayode Woods on 08-05-2024 Epithelial cells.squamous LM Ql (Urine sed) 0 SEEN /hpf 0-5 [facility] Total proteinOrdered By: Mayela Woods on 08-05-2024 Protein [Mass/Vol] 6.4 g/dL 5.9-8.4 [facility] Troponin T.cardiac [Mass/vol ume] in Serum or Plasma by High sensitivity methodOrdered By: Kayode Woods on 08-05-2024 Troponin T.cardiac High sensitivity method [Mass/Vol] 36 ng/L High <22 [facility] Troponin T.cardiac High sensitivity method [Mass/Vol] 39 ng/L High <22 [facility] Urinalysis, Completeon 08-05 BACTERIA 0 SEEN Normal None Seen [facility] Comment on above: Order Comment: JUDE CTOR TO SPECIFY Performed By: #### L 400.0001 ####[facility] [address] [place], [place], [id number] EPI,SQUAMOUS 0 SEEN Normal 0-5 [facility] Comment on above: Order Comment: JUDE CTOR TO SPECIFY Performed By: #### L 400.0001 ####[facility] [address] [place], [address] Mucus Ql (Urine sed) 0 SEEN Normal [facility] Comment on above: Order Comment: JUDE CTOR TO SPECIFY Performed By: #### L 400.0001 ####[facility] [address] [place], [address] RBC 0 SEEN Normal 0-5 [facility] Comment on above: Order Comment: JUDE CTOR TO SPECIFY Performed By: #### L 400.0001 ####[facility] [address] [place], [address] WBC 0 SEEN Normal 0-5 [facility] Comment on above: Order Comment: JUDE CTOR TO SPECIFY Performed By: #### L 400.0001 ####[facility] [address] [place], [place], [address] Urine clarityOrdered By: Mayela Woods on 08-05-2024 Clarity (U) Clear Clear [facility] Urine color determinationOrd ered By: Kayode Woods on 08-05-2024 Color (U) Yellow Yellow [facility] Urine glucose detectionOrder ed By: Kayode Woods on 08-05-2024 Glucose Ql (U) Normal mg/dl Normal [facility] Urine leukocyte esterase det ection by dipstickOrdered By: Kayode Woods on 08-05-2024 Leukocyte esterase Test strip Ql (U) Negative Negative [facility] Urine pHOrdered By: Kayode maxwell on 08-05-2024 pH (U) 7.0 [pH] 5.0 - 8.0 [facility] Urine sediment bacteria coun t by microscopy (number/high power field)Ordered By: Kayode Woods on 08-05-2024 Bacteria LM.HPF (Urine sed) [#/Area] 0 /[HPF] None Seen [facility] Urine specific gravity measu rementOrdered By: Kayode Woods on 08-05-2024 Specific gravity (U) [Rel density] 1.010 1.002-1.030 [facility] Urine urobilinogen measureme ntOrdered By: Kayode Woods on 08-05-2024 Urobilinogen Ql (U) Normal mg/dl Normal [facility] White blood cell (WBC) count Ordered By: Kayode Woods on 08-05-2024 WBC (Bld) [#/Vol] 8.4 10*3/uL Normal 4.4-11.0 [facility] Comment on above: Performed By: #### L 503.6005, L501.2450, L100.0100, L500.4050, L501.4021 ####[facility] [address] [place], [place], [id number] White blood cell countOrdere d By: aKyode Woods on 08-05-2024 White blood cell count 0 SEEN /hpf 0-[address] [facility] Cerv Spine 2 or 3 Viewson Cerv Spine 2 or [address] [facility] Orthopedic Visit Reporton Orthopedic Visit Report Normal [facility] Absolute lymphocyte countOrd ered By: Kwabena Menjivar on 07-20-2024 Lymphocytes Auto (Unsp spec) [#/Vol] 2.92 10*3/uL 0.83-4.51 [facility] Anion gap in Serum or Plasma Ordered By: Kwabena Menjivar on 07-20-2024 Anion gap [Moles/Vol] 13 mmol/L 5-15 [facility] Automated lymphocyte count a s percentage of total leukocytesOrdered By: Kwabena Menjivar on 07-20-2024 Lymphocytes/100 WBC Auto (Unsp spec) 35.4 % 19-41 [facility] BUN/creatinine ratioOrdered By: Kwabena Menjivar on 07-20-2024 Urea nitrogen/Creatinine [Mass ratio] 12.9 mg/mg 10-20 [facility] Basophil percentageOrdered B y: Kwabena Menjivar on 07-20-2024 Basophils/100 WBC (Bld) 0.6 % 0-1 [facility] Bilirubin, totalOrdered By: Kwabena Menjivar on 07-20-2024 Bilirubin [Mass/Vol] 0.44 mg/dL 0.00-1.30 [facility] CBC W/Diff, Automatedon - 2-2024 Absolute Lymph 2.92 X10 3/uL Normal 0.83-4.51 [facility] Comment on above: Order Comment: Order Date: 07/20/24Order Info: [id number] - CBCDOrder Date: 10/27/23Order Info: [id number] - CBC Performed By: #### L 100.0100, L501.9520, L400.0001, L500.4050 ####[facility] [address] [place], [address] Absolute Neut 4.3 X10 3/uL Normal 2.0-7.7 [facility] Comment on above: Order Comment: Order Date: 07/20/24Order Info: [id number] - CBCDOrder Date: 10/27/23Order Info: [id number] - CBC Performed By: #### L 100.0100, L501.9520, L400.0001, L500.4050 ####[facility] [address] [place], [address] Basophils/100 WBC (Bld) 0.6 % Normal 0-1 [facility] Comment on above: Order Comment: Order Date: 07/20/24Order Info: [id number] - CBCDOrder Date: 10/27/23Order Info: [id number] - CBC Performed By: #### L 100.0100, L501.9520, L400.0001, L500.4050 ####[facility] [address] [place], [address] Eosinophils/100 WBC (Bld) 3.3 % Normal 0-5 [facility] Comment on above: Order Comment: Order Date: 07/20/24Order Info: [id number] - CBCDOrder Date: 10/27/23Order Info: [id number] - CBC Performed By: #### L 100.0100, L501.9520, L400.0001, L500.4050 ####[facility] [address] [place], [address] Erythrocyte distribution width (RBC) [Ratio] 13.1 % Normal 11.6-14.6 [facility] Comment on above: Order Comment: Order Date: 07/20/24Order Info: [id number] - CBCDOrder Date: 10/27/23Order Info: [id number] - CBC Performed By: #### L 100.0100, L501.9520, L400.0001, L500.4050 ####[facility] [address] [place], [address] Hematocrit (Bld) [Volume fraction] 40.4 % Normal 40-54 [facility] Comment on above: Order Comment: Order Date: 07/20/24Order Info: [id number] - CBCDOrder Date: 10/27/23Order Info: [id number] - CBC Performed By: #### L 100.0100, L501.9520, L400.0001, L500.4050 ####[facility] [address] [place], [address] Hemoglobin (Bld) [Mass/Vol] 13.3 g/dL Normal 13.0-16.5 [facility] Comment on above: Order Comment: Order Date: 07/20/24Order Info: [id number] - CBCDOrder Date: 10/27/23Order Info: [id number] - CBC Performed By: #### L 100.0100, L501.9520, L400.0001, L500.4050 ####[facility] [address] [place], [address] IG% 0.200 Normal 0.0-0.9 [facility] Comment on above: Order Comment: Order Date: 07/20/24Order Info: [id number] - CBCDOrder Date: 10/27/23Order Info: [id number] - CBC Result Comment: IG% - Immature Granulocytes (promyelocytes, myelocytes andmetamyelocytes) > 1% indicates that a LEFT SHIFT is Present. Performed By: #### L 100.0100, L501.9520, L400.0001, L500.4050 ####[facility] [address] [place], [address] Lymphocytes/100 WBC (Bld) 35.4 % Normal 19-41 [facility] Comment on above: Order Comment: Order Date: 07/20/24Order Info: [id number] - CBCDOrder Date: 10/27/23Order Info: [id number] - CBC Performed By: #### L 100.0100, L501.9520, L400.0001, L500.4050 ####[facility] [address] [place], [address] MCH (RBC) [Entitic mass] 29.4 pg Normal 27.0-32.0 [facility] Comment on above: Order Comment: Order Date: 07/20/24Order Info: [id number]- - CBCDOrder Date: 10/27/23Order Info: [id number] - CBC Performed By: #### L 100.0100, L501.9520, L400.0001, L500.4050 ####[facility] [address] [place], [address] MCHC (RBC) [Mass/Vol] 32.9 g/dL Normal 32-36 [facility] Comment on above: Order Comment: Order Date: 07/20/24Order Info: [id number] - CBCDOrder Date: 10/27/23Order Info: [id number] - CBC Performed By: #### L 100.0100, L501.9520, L400.0001, L500.4050 ####[facility] [address] [place], [address] MCV (RBC) [Entitic vol] 89.2 fL Normal 80-94 [facility] Comment on above: Order Comment: Order Date: 07/20/24Order Info: [id number] - CBCDOrder Date: 10/27/23Order Info: [id number] - CBC Performed By: #### L 100.0100, L501.9520, L400.0001, L500.4050 ####[facility] [address] [place], [address] Monocytes/100 WBC (Bld) 8.4 % Normal 0-10 [facility] Comment on above: Order Comment: Order Date: 07/20/24Order Info: [id number] - CBCDOrder Date: 10/27/23Order Info: [id number] - CBC Performed By: #### L 100.0100, L501.9520, L400.0001, L500.4050 ####[facility] [address] [place], [address] Neutrophils/100 WBC (Bld) 52.1 % Normal 47-70 [facility] Comment on above: Order Comment: Order Date: 07/20/24Order Info: [id number] - CBCDOrder Date: 10/27/23Order Info: [id number] - CBC Performed By: #### L 100.0100, L501.9520, L400.0001, L500.4050 ####[facility] [address] [facility], [address] Nucleated RBC (Bld) [#/Vol] 0 10*3/uL Normal 0-5 [facility] Comment on above: Order Comment: Order Date: 07/20/24Order Info: [id number] - CBCDOrder Date: 10/27/23Order Info: [id number] - CBC Performed By: #### L 100.0100, L501.9520, L400.0001, L500.4050 ####[facility] [address] [facility], [address] Platelet mean volume (Bld) [Entitic vol] 9.1 fL Normal 6.2-12.0 [facility] Comment on above: Order Comment: Order Date: 07/20/24Order Info: [id number] - CBCDOrder Date: 10/27/23Order Info: [id number] - CBC Performed By: #### L 100.0100, L501.9520, L400.0001, L500.4050 ####[facility] [address] [place], [address] Platelets (Bld) [#/Vol] 242 10*3/uL Normal 150-450 [facility] Comment on above: Order Comment: Order Date: 07/20/24Order Info: [id number] - CBCDOrder Date: 10/27/23Order Info: [id number] - CBC Performed By: #### L 100.0100, L501.9520, L400.0001, L500.4050 ####[facility] [address] [place], [address] RBC (Bld) [#/Vol] 4.53 10*6/uL Low 4.6-6.2 [facility] Comment on above: Order Comment: Order Date: 07/20/24Order Info: [id number] - CBCDOrder Date: 10/27/23Order Info: [id number] - CBC Performed By: #### L 100.0100, L501.9520, L400.0001, L500.4050 ####[facility] [address] [place], [address] RDW SD 43.0 fl Normal 35.1-43.9 [facility] Comment on above: Order Comment: Order Date: 07/20/24Order Info: [id number] - CBCDOrder Date: 10/27/23Order Info: [id number] - CBC Performed By: #### L 100.0100, L501.9520, L400.0001, L500.4050 ####[facility] [address] [place], [address] WBC (Bld) [#/Vol] 8.3 10*3/uL Normal 4.4-11.0 [facility] Comment on above: Order Comment: Order Date: 07/20/24Order Info: [id number] - CBCDOrder Date: 10/27/23Order Info: [id number] - CBC Performed By: #### L 100.0100, L501.9520, L400.0001, L500.4050 ####[facility] [address] [place], [place], [id number] Calculated very low density lipoprotein (VLDL) cholesterol measurementOrdered By: Kwabena Menjivar on 07-20-2024 Calculated very low density lipoprotein (VLDL) cholesterol measurement 27 mg/dL 5-40 [facility] Carbon dioxide, total [Moles /volume] in Central venous bloodOrdered By: Kwabena Menjivar on 07-20-2024 CO2 [Moles/Vol] 24.7 mmol/L 21.0-32.0 [facility] Chloride assayOrdered By: Kristine Menjivar on 07-20-2024 Chloride [Moles/Vol] 104 mmol/L 98-108 [facility] Comprehensive Metabolic Prof ilon 07-20-2024 Albumin [Mass/Vol] 4.3 g/dL Normal 3.4-4.8 [facility] Comment on above: Order Comment: Order Date: 10/27/23Order Info: [id number] - BMPOrder Date: 07/20/24Order Info: [id number] - CMPOrder Info: [id number] - LIPIDOrder Info: [id number] - TSH Performed By: #### L 100.0100, L501.9520, L400.0001, L500.4050 ####[facility] [address] [place], [place], [id number] Albumin/Globulin [Mass ratio] 1.6 {ratio} Normal 0.9-2.4 [facility] Comment on above: Order Comment: Order Date: 10/27/23Order Info: [id number] - BMPOrder Date: 07/20/24Order Info: [id number] - CMPOrder Info: [id number] - LIPIDOrder Info: [id number] - TSH Performed By: #### L 100.0100, L501.9520, L400.0001, L500.4050 ####[facility] [address] [place], [address] ALK PHOS 133 U/L High 40-129 [facility] Comment on above: Order Comment: Order Date: 10/27/23Order Info: [id number] - BMPOrder Date: 07/20/24Order Info: [id number] - CMPOrder Info: [id number] - LIPIDOrder Info: [id number] - TSH Performed By: #### L 100.0100, L501.9520, L400.0001, L500.4050 ####[facility] [address] [place], [address] ALT [Catalytic activity/Vol] 33 U/L Normal <=46 [facility] Comment on above: Order Comment: Order Date: 10/27/23Order Info: [id number] - BMPOrder Date: 07/20/24Order Info: [id number]- - CMPOrder Info: [id number] - LIPIDOrder Info: [id number] - TSH Performed By: #### L 100.0100, L501.9520, L400.0001, L500.4050 ####[facility] [address] [place], [address] AST [Catalytic activity/Vol] 30 U/L Normal <=37 [facility] Comment on above: Order Comment: Order Date: 10/27/23Order Info: [id number] - BMPOrder Date: 07/20/24Order Info: [id number] - CMPOrder Info: [id number] - LIPIDOrder Info: [id number] - TSH Performed By: #### L 100.0100, L501.9520, L400.0001, L500.4050 ####[facility] [address] [place], [address] Bilirubin [Mass/Vol] 0.44 mg/dL Normal 0.00-1.30 [facility] Comment on above: Order Comment: Order Date: 10/27/23Order Info: [id number] - BMPOrder Date: 07/20/24Order Info: [id number] - CMPOrder Info: [id number] - LIPIDOrder Info: [id number] - TSH Performed By: #### L 100.0100, L501.9520, L400.0001, L500.4050 ####[facility] [address] [place], [address] BUN/CRE 12.9 RATIO Normal 10-20 [facility] Comment on above: Order Comment: Order Date: 10/27/23Order Info: 666- - BMPOrder Date: 07/20/24Order Info: 86-1 - CMPOrder Info: [id number] - LIPIDOrder Info: [id number] - TSH Performed By: #### L 100.0100, L501.9520, L400.0001, L500.4050 ####[facility] [address] [place], [address] Calcium [Mass/Vol] 9.6 mg/dL Normal 7.6-11.0 [facility] Comment on above: Order Comment: Order Date: 10/27/23Order Info: 666- - BMPOrder Date: 07/20/24Order Info: 86-1 - CMPOrder Info: [id number] - LIPIDOrder Info: [id number] - TSH Performed By: #### L 100.0100, L501.9520, L400.0001, L500.4050 ####[facility] [address] [place], [address] Chloride [Moles/Vol] 104 mmol/L Normal 98-108 [facility] Comment on above: Order Comment: Order Date: 10/27/23Order Info: 666- - BMPOrder Date: 07/20/24Order Info: 86-1 - CMPOrder Info: [id number] - LIPIDOrder Info: 6-3 - TSH Performed By: #### L 100.0100, L501.9520, L400.0001, L500.4050 ####[facility] [address] [place], [address] CO2 [Moles/Vol] 24.7 mmol/L Normal 21.0-32.0 [facility] Comment on above: Order Comment: Order Date: 10/27/23Order Info: 666- - BMPOrder Date: 07/20/24Order Info: 86-1 - CMPOrder Info: [id number] - LIPIDOrder Info: [id number] - TSH Performed By: #### L 100.0100, L501.9520, L400.0001, L500.4050 ####[facility] [address] [place], [address] Creatinine [Mass/Vol] 1.07 mg/dL Normal 0.70-1.20 [facility] Comment on above: Order Comment: Order Date: 10/27/23Order Info: [id number] - BMPOrder Date: 07/20/24Order Info: 785- - CMPOrder Info: [id number] - LIPIDOrder Info: [id number] - TSH Performed By: #### L 100.0100, L501.9520, L400.0001, L500.4050 ####[facility] [address] [place], [address] GAP 13 Normal 5-15 [facility] Comment on above: Order Comment: Order Date: 10/27/23Order Info: [id number] - BMPOrder Date: 07/20/24Order Info: 785- - CMPOrder Info: [id number] - LIPIDOrder Info: [id number] - TSH Performed By: #### L 100.0100, L501.9520, L400.0001, L500.4050 ####[facility] [address] [place], [place], [address] GFR/1.73 sq M.predicted among non-blacks MDRD (S/P/Bld) [Vol rate/Area] 69 mL/min/{1.73_m2} Normal >60 [facility] Comment on above: Order Comment: Order Date: 10/27/23Order Info: [id number] - BMPOrder Date: 07/20/24Order Info: [id number] - CMPOrder Info: - LIPIDOrder Info: [id number] - TSH Result Comment: mL/m in/1.73m2 CKD-EPI Creatinine Equation (2020) Performed By: #### L 100.0100, L501.9520, L400.0001, L500.4050 ####[facility] [address] [place], [address] Globulin (S) [Mass/Vol] 2.6 g/dL Normal 2.2-4.[address] [facility] Comment on above: Order Comment: Order Date: 10/27/23Order Info: [id number] - BMPOrder Date: 07/20/24Order Info: [id number] - CMPOrder Info: - LIPIDOrder Info: [id number] - TSH Performed By: #### L 100.0100, L501.9520, L400.0001, L500.4050 ####[facility] [address] [place], [address] Glucose [Mass/Vol] 86 mg/dL Normal 70-99 [facility] Comment on above: Order Comment: Order Date: 10/27/23Order Info: [id number] - BMPOrder Date: 07/20/24Order Info: [id number] - CMPOrder Info: - LIPIDOrder Info: [id number] - TSH Performed By: #### L 100.0100, L501.9520, L400.0001, L500.4050 ####[facility] [address] [place], [address] Potassium [Moles/Vol] 4.3 mmol/L Normal 3.3-5.1 [facility] Comment on above: Order Comment: Order Date: 10/27/23Order Info: [id number] - BMPOrder Date: 07/20/24Order Info: [id number] - CMPOrder Info: [id number] - LIPIDOrder Info: [id number] - TSH Performed By: #### L 100.0100, L501.9520, L400.0001, L500.4050 ####[facility] [address] [place], [address] Sodium [Moles/Vol] 142 mmol/L Normal 133-145 [facility] Comment on above: Order Comment: Order Date: 10/27/23Order Info: 06- - BMPOrder Date: 07/20/24Order Info: [id number] - CMPOrder Info: [id number] - LIPIDOrder Info: [id number] - TSH Performed By: #### L 100.0100, L501.9520, L400.0001, L500.4050 ####[facility] [address] [place], [address] T PROT 6.9 g/dL Normal 5.9-8.4 [facility] Comment on above: Order Comment: Order Date: 10/27/23Order Info: 666- - BMPOrder Date: 07/20/24Order Info: 07- - CMPOrder Info: [id number] - LIPIDOrder Info: 6-3 - TSH Performed By: #### L 100.0100, L501.9520, L400.0001, L500.4050 ####[facility] [address] [place], [address] Urea nitrogen [Mass/Vol] 14 mg/dL Normal 4-19 [facility] Comment on above: Order Comment: Order Date: 10/27/23Order Info: 666- - BMPOrder Date: 07/20/24Order Info: [id number] - CMPOrder Info: [id number] - LIPIDOrder Info: [id number] - TSH Performed By: #### L 100.0100, L501.9520, L400.0001, L500.4050 ####[facility] [address] [place], [address] Eosinophil percentageOrdered By: Kwabena Menjivar on 07-20-2024 Eosinophils/100 WBC (Bld) 3.3 % 0-5 [facility] Erythrocyte distribution wid th ratioOrdered By: Kwabena Menjivar on 07-20-2024 Erythrocyte distribution width (RBC) [Ratio] 13.1 % 11.6-14.6 [facility] Erythrocyte distribution wid th standard deviationOrdered By: Kwabena Menjivar on 07-20-2024 Erythrocyte distribution width (RBC) [Ratio] 43.0 fl 35.1-43.9 [facility] Glomerular filtration rate ( GFR) estimation/1.73 sq m using serum, plasma, or whole bOrdered By: Kwabena Menjivar on 07-20-2024 GFR/1.73 sq M.predicted among non-blacks MDRD (S/P/Bld) [Vol rate/Area] 69 mL/min/{1.73_m2} >60 [facility] Hematocrit Auto (Bld) [Volum e fraction]Ordered By: Kwabena Menjivar on 07-20-2024 Hematocrit (Bld) [Volume fraction] 40.4 % 40-54 [facility] Hemoglobin measurementOrdere d By: Kwabena Menjivar on 07-20-2024 Hemoglobin (Bld) [Mass/Vol] 13.3 g/dL 13.0-16.5 [facility] Immature granulocytes/100 WB C Auto (Bld)Ordered By: Kwabena Menjivar on 07-20-2024 Immature granulocytes/100 WBC (Bld) 0.200 % 0.0-0.9 [facility] LDL calc ser/plasOrdered By: Kwabena Menjivar on 07-20-2024 Cholesterol in LDL [Mass/Vol] 105 mg/dL [facility] Lipid Profileon 07-20-2024 CHOL:HDL 3.52 Normal [facility] Comment on above: Order Comment: Order Date: 10/27/23Order Info: [id number] - BMPOrder Date: 07/20/24Order Info: [id number] - CMPOrder Info: [id number] - LIPIDOrder Info: [id number] - TSH Performed By: #### L 500.4100 ####[facility] [address] [place], [address] Cholesterol [Mass/Vol] 185 mg/dL Normal <=200 [facility] Comment on above: Order Comment: Order Date: 10/27/23Order Info: [id number] - BMPOrder Date: 07/20/24Order Info: [id number] - CMPOrder Info: [id number] - LIPIDOrder Info: [id number] - TSH Result Comment: Chol esterol level, Desirable <200 mg/dLBorderline high cholesterol 200-239 mg/dLHigh cholesterol >=240 mg/dLRecommendations of the NCEP Adult Treatment Panel for thefollowing risk-cutoff thresholds for the [place] Americanpopulation. Performed By: #### L 500.4100 ####[facility] [address] [place], [address] Cholesterol in HDL [Mass/Vol] 53 mg/dL Normal [facility] Comment on above: Order Comment: Order Date: 10/27/23Order Info: [id number]- - BMPOrder Date: 07/20/24Order Info: [id number] - CMPOrder Info: [id number] - LIPIDOrder Info: [id number] - TSH Result Comment: Jodi onal Cholesterol Education Program (NCEP) guidelines:<40 mg/dL: Low HDL-cholesterol (major risk factor for CHD)>= 60 mg/dL: High HDL-cholesterol (negative risk factor forCHD)HDL-cholesterol is affected by a number of factors, e.g.smoking, exercise, hormones, sex and age. Performed By: #### L 500.4100 ####[facility] [address] [place], [address] Cholesterol in LDL [Mass/Vol] 105 mg/dL Normal [facility] Comment on above: Order Comment: Order Date: 10/27/23Order Info: [id number]- - BMPOrder Date: 07/20/24Order Info: [id number] - CMPOrder Info: [id number] - LIPIDOrder Info: [id number] - TSH Result Comment: Bord ofgaom=379-082 mg/dL Higher Bysj=471 mg/dL or greater Performed By: #### L 500.4100 ####[facility] [address] [place], [address] Cholesterol in VLDL [Mass/Vol] 27 mg/dL Normal 5-40 [facility] Comment on above: Order Comment: Order Date: 10/27/23Order Info: 06-1 - BMPOrder Date: 07/20/24Order Info: [id number] - CMPOrder Info: [id number] - LIPIDOrder Info: [id number] - TSH Performed By: #### L 500.4100 ####[facility] [address] [place], [address] Triglyceride [Mass/Vol] 136 mg/dL Normal [facility] Comment on above: Order Comment: Order Date: 10/27/23Order Info: 06- - BMPOrder Date: 07/20/24Order Info: [id number] - CMPOrder Info: [id number] - LIPIDOrder Info: [id number] - TSH Result Comment: The drugs N-Acetylcysteine and Metamizole may falselydepress this assay.Normal range: <150 mg/dLBorderline High: 150-199 mg/dLHigh: 200-499 mg/dLVery High: >500 mg/dL Performed By: #### L 500.4100 ####[facility] [address] [place], [address] MCV (mean corpuscular volume ) determinationOrdered By: Kwabena Menjivar on 07-20-2024 MCV (RBC) [Entitic vol] 89.2 fL 80-94 [facility] Mean corpuscular hemoglobin (MCH) determinationOrdered By: Kwabena Menjivar on 07-20-2024 MCH (RBC) [Entitic mass] 29.4 pg 27.0-32.0 [facility] Monocyte percentageOrdered B y: Kwabena Menjivar on 07-20-2024 Monocytes/100 WBC (Bld) 8.4 % 0-10 [facility] Neutrophil percentageOrdered By: Kwabena Menjivar on 07-20-2024 Neutrophils/100 WBC (Bld) 52.1 % 47-70 [facility] No Panel InformationOrdered By: Kwabena Menjivar on 07-20-2024 30 U/L <38 [facility] Platelet countOrdered By: Kristine Menjivar on 07-20-2024 Platelets (Bld) [#/Vol] 242 10*3/uL 150-450 [facility] Potassium measurement (mass/ volume)Ordered By: Kwabena Menjivar on 07-20-2024 Potassium (Unsp spec) [Mass/Vol] 4.3 mmol/L 3.3-5.1 [facility] RBC Auto (Bld) [#/Vol]Ordere d By: Kwabena Menjivar on 07-20-2024 RBC (Bld) [#/Vol] 4.53 10*6/uL Low 4.6-6.2 [facility] Serum creatinine measurement (mass/volume)Ordered By: Kwabena Menjivar on 07-20-2024 Creatinine [Mass/Vol] 1.07 mg/dL 0.70-1.20 [facility] Serum globulin measurementOr dered By: Kwabena Menjivar on 07-20-2024 Globulin (S) [Mass/Vol] 2.6 g/dL 2.2-4.2 [facility] Serum glucose measurement (m ass/volume)Ordered By: Kwabena Menjivar on 07-20-2024 Glucose [Mass/Vol] 86 mg/dL 70-99 [facility] Serum or plasma alanine olmedo otransferase (ALT) measurementOrdered By: Kwabena Menjivar on 07-20-2024 ALT [Catalytic activity/Vol] 33 U/L <47 [facility] Serum or plasma albumin ratna urement (mass/volume)Ordered By: Kwabena Menjivar on 07-20-2024 Albumin [Mass/Vol] 4.3 g/dL 3.4-4.8 [facility] Serum or plasma albumin/glob ulin mass ratioOrdered By: Kwabena Menjivar on 07-20-2024 Albumin/Globulin [Mass ratio] 1.6 {ratio} 0.9-2.4 [facility] Serum or plasma alkaline garry sphatase measurementOrdered By: Kwabena Menjivar on 07-20-2024 ALP [Catalytic activity/Vol] 133 U/L High 40-129 [facility] Serum or plasma calcium ratna urement (mass/volume)Ordered By: Kwabena Menjivar on 07-20-2024 Calcium [Mass/Vol] 9.6 mg/dL 7.6-11.0 [facility] [facility] Serum or plasma cholesterol in HDL measurement (mass/volume)Ordered By: Kwabena Menjivar on 07-20-2024 Cholesterol in HDL [Mass/Vol] 53 mg/dL >40 [facility] Serum or plasma cholesterol measurement (mass/volume)Ordered By: Kwabena Menjivar on 07-20-2024 Cholesterol [Mass/Vol] 185 mg/dL <201 [facility] Serum or plasma urea nitroge n measurement (mass/volume)Ordered By: Kwabena Menjivar on 07-20-2024 Urea nitrogen [Mass/Vol] 14 mg/dL 4-19 [facility] Sodium levelOrdered By: Akhil Menjivar on 07-20-2024 Sodium [Moles/Vol] 142 mmol/L 133-145 [facility] TSH DL <= 0.005 mIU/L QnOrde red By: Kwabena Menjivar on 07-20-2024 TSH Qn 1.580 uIU/mL 0.300-4.200 [facility] Thyroid Stim Hormone (TSH)on 07-20-2024 TSH 1.580 uIU/mL Normal 0.300-4.200 [facility] Comment on above: Order Comment: Order Date: 10/27/23Order Info: [id number] - BMPOrder Date: 07/20/24Order Info: [id number] - CMPOrder Info: [id number] - LIPIDOrder Info: [id number] - TSH Performed By: #### L 100.0100, L501.9520, L400.0001, L500.4050 ####[facility] [address] [place], [place], [id number] Total proteinOrdered By: Blayne Menjivar on 07-20-2024 Protein [Mass/Vol] 6.9 g/dL 5.9-8.4 [facility] Urinalysis, Completeon 07-20 BACTERIA 0 SEEN Normal None Seen [facility] Comment on above: Order Comment: Order Date: 07/20/24Order Info: [id number] - UACCOLLECTOR TO SPECIFY Result Comment: UTO Performed By: #### L 100.0100, L501.9520, L400.0001, L500.4050 ####[facility] [address] [place], [address] EPI,SQUAMOUS 0 SEEN Normal 0-5 [facility] Comment on above: Order Comment: Order Date: 07/20/24Order Info: [id number] - UACCOLLECTOR TO SPECIFY Result Comment: UTO Performed By: #### L 100.0100, L501.9520, L400.0001, L500.4050 ####[facility] [address] [place], [address] Mucus Ql (Urine sed) 0 SEEN Normal [facility] Comment on above: Order Comment: Order Date: 07/20/24Order Info: [id number] - UACCOLLECTOR TO SPECIFY Result Comment: UTO Performed By: #### L 100.0100, L501.9520, L400.0001, L500.4050 ####[facility] [address] [place], [address] RBC 0 SEEN Normal [address] [place] [address] Comment on above: Order Comment: Order Date: 07/20/24Order Info: [id number] - UACCOLLECTOR TO SPECIFY Result Comment: UTO Performed By: #### L 100.0100, L501.9520, L400.0001, L500.4050 ####[facility] [address] [place], [address] WBC 0 SEEN Normal 0-[address] [place] [address] Comment on above: Order Comment: Order Date: 07/20/24Order Info: [id number] - UACCOLLECTOR TO SPECIFY Result Comment: UTO Performed By: #### L 100.0100, L501.9520, L400.0001, L500.4050 ####[facility] [address] [place], [address] BILIRUBIN URINE Normal Negative [facility] Comment on above: Order Comment: Order Date: 07/20/24Order Info: [id number] - UACCOLLECTOR TO SPECIFY Result Comment: UTO Performed By: #### L 100.0100, L501.9520, L400.0001, L500.4050 ####[facility] [address] [place], [address] Clarity (U) Normal Clear [facility] Comment on above: Order Comment: Order Date: 07/20/24Order Info: [id number] - UACCOLLECTOR TO SPECIFY Result Comment: UTO Performed By: #### L 100.0100, L501.9520, L400.0001, L500.4050 ####[facility] [address] [place], [address] Color (U) Normal Yellow [facility] Comment on above: Order Comment: Order Date: 07/20/24Order Info: [id number] - UACCOLLECTOR TO SPECIFY Result Comment: UTO Performed By: #### L 100.0100, L501.9520, L400.0001, L500.4050 ####[facility] [address] [place], [address] GLUCOSE, UR Normal Normal [facility] Comment on above: Order Comment: Order Date: 07/20/24Order Info: [id number] - UACCOLLECTOR TO SPECIFY Result Comment: UTO Performed By: #### L 100.0100, L501.9520, L400.0001, L500.4050 ####[facility] [address] [place], [address] KETONE UR Normal Negative [facility] Comment on above: Order Comment: Order Date: 07/20/24Order Info: [id number] - UACCOLLECTOR TO SPECIFY Result Comment: UTO Performed By: #### L 100.0100, L501.9520, L400.0001, L500.4050 ####[facility] [address] [place], [address] LEUK ESTERASE Normal Negative [facility] Comment on above: Order Comment: Order Date: 07/20/24Order Info: [id number] - UACCOLLECTOR TO SPECIFY Result Comment: UTO Performed By: #### L 100.0100, L501.9520, L400.0001, L500.4050 ####[facility] [address] [place], [address] Nitrite Ql (U) Normal Negative [facility] Comment on above: Order Comment: Order Date: 07/20/24Order Info: [id number] - UACCOLLECTOR TO SPECIFY Result Comment: UTO Performed By: #### L 100.0100, L501.9520, L400.0001, L500.4050 ####[facility] [address] [place], [address] OCCULT BLOOD-UR Normal Negative [facility] Comment on above: Order Comment: Order Date: 07/20/24Order Info: [id number] - UACCOLLECTOR TO SPECIFY Result Comment: UTO Performed By: #### L 100.0100, L501.9520, L400.0001, L500.4050 ####[facility] [address] [place], [address] pH UR Normal 5.0 - 8.0 [facility] Comment on above: Order Comment: Order Date: 07/20/24Order Info: [id number] - UACCOLLECTOR TO SPECIFY Result Comment: UTO Performed By: #### L 100.0100, L501.9520, L400.0001, L500.4050 ####[facility] [address] [place], [address] PROT DIPSTX Normal Negative [facility] Comment on above: Order Comment: Order Date: 07/20/24Order Info: [id number] - UACCOLLECTOR TO SPECIFY Result Comment: UTO Performed By: #### L 100.0100, L501.9520, L400.0001, L500.4050 ####[facility] [address] [place], [address] SP.GR. DIPSTX Normal 1.002-1.030 [facility] Comment on above: Order Comment: Order Date: 07/20/24Order Info: [id number] - UACCOLLECTOR TO SPECIFY Result Comment: UTO Performed By: #### L 100.0100, L501.9520, L400.0001, L500.4050 ####[facility] [address] [place], [address] UR Preservative Normal [facility] Comment on above: Order Comment: Order Date: 07/20/24Order Info: [id number] - UACCOLLECTOR TO SPECIFY Result Comment: UTO Performed By: #### L 100.0100, L501.9520, L400.0001, L500.4050 ####[facility] [address] [place], [address] UROBILI Normal Normal [facility] Comment on above: Order Comment: Order Date: 07/20/24Order Info: [id number] - UACCOLLECTOR TO SPECIFY Result Comment: UTO Performed By: #### L 100.0100, L501.9520, L400.0001, L500.4050 ####[facility] [address] [place], [address] Vitamin D,25 Hydroxyon 07-20 Vitamin D 25-OH 45.1 ng/mL Normal 30-100 [facility] Comment on above: Order Comment: Order Date: 10/27/23Order Info: [id number] - BMPOrder Date: 07/20/24Order Info: [id number] - CMPOrder Info: [id number] - LIPIDOrder Info: [id number] - TSH Result Comment: Bethany min D StatusDeficiency: <20 ng/mL (50nmol/L)Insufficiency: 20-30 ng/mL (50-75 nmol/L)Sufficiency: 30-100 ng/mL (75-250 nmol/L)Toxicity: >100 ng/mL (>250 nmol/L) Performed By: #### L 506.1001 ####[facility] [address] [place], [address] White blood cell (WBC) count Ordered By: Kwabena Menjivar on 07-20-2024 WBC (Bld) [#/Vol] 8.3 10*3/uL 4.4-11.0 [facility] Wrist min 3 Viewson 07-21-19 25 Wrist min 3 Views Normal [facility] Absolute lymphocyte countOrd ered By: Keven Etienne on 07-11-2024 Lymphocytes Auto (Unsp spec) [#/Vol] 2.74 10*3/uL 0.83-4.51 [facility] Anion gap in Serum or Plasma Ordered By: Keven Etienne on 07-11-2024 Anion gap [Moles/Vol] 10 mmol/L 5-15 [facility] Automated lymphocyte count a s percentage of total leukocytesOrdered By: Keven Etienne on 07-11-2024 Lymphocytes/100 WBC Auto (Unsp spec) 40.8 % 19-41 [facility] BUN/creatinine ratioOrdered By: Keven Etienne on 07-11-2024 Urea nitrogen/Creatinine [Mass ratio] 22.0 mg/mg High 10-20 [facility] Basophil percentageOrdered B y: Keven Etienne on 07-11-2024 Basophils/100 WBC (Bld) 0.6 % 0-1 [facility] Carbon dioxide, total [Moles /volume] in Central venous bloodOrdered By: Keven Etienne on 07-11-2024 CO2 [Moles/Vol] 25.7 mmol/L 21.0-32.0 [facility] Chloride assayOrdered By: Edwar Etienne on 07-11-2024 Chloride [Moles/Vol] 104 mmol/L 98-108 [facility] Eosinophil percentageOrdered By: Keven Etienne on 07-11-2024 Eosinophils/100 WBC (Bld) 6.1 % High 0-5 [facility] Erythrocyte distribution wid th ratioOrdered By: Keven Etienne on 07-11-2024 Erythrocyte distribution width (RBC) [Ratio] 13.1 % 11.6-14.6 [facility] Erythrocyte distribution wid th standard deviationOrdered By: Keven Etienne on 07-11-2024 Erythrocyte distribution width (RBC) [Ratio] 42.7 fl 35.1-43.9 [facility] Glomerular filtration rate ( GFR) estimation/1.73 sq m using serum, plasma, or whole bOrdered By: Keven Etienne on 07-11-2024 GFR/1.73 sq M.predicted among non-blacks MDRD (S/P/Bld) [Vol rate/Area] 87 mL/min/{1.73_m2} >60 [facility] Hematocrit Auto (Bld) [Volum e fraction]Ordered By: Keven Etienne on 07-11-2024 Hematocrit (Bld) [Volume fraction] 35.5 % Low 40-54 [facility] Hemoglobin measurementOrdere d By: Keven Etienne on 07-11-2024 Hemoglobin (Bld) [Mass/Vol] 11.9 g/dL Low 13.0-16.5 [facility] Immature granulocytes/100 WB C Auto (Bld)Ordered By: Keven Etienne on 07-11-2024 Immature granulocytes/100 WBC (Bld) 0.300 % 0.0-0.9 [facility] MCV (mean corpuscular volume ) determinationOrdered By: Keven Etienne on 07-11-2024 MCV (RBC) [Entitic vol] 88.8 fL 80-94 [facility] Mean corpuscular hemoglobin (MCH) determinationOrdered By: remedios Etienne on 07-11-2024 MCH (RBC) [Entitic mass] 29.8 pg 27.0-32.0 [facility] Monocyte percentageOrdered B y: Keven Etienne on 07-11-2024 Monocytes/100 WBC (Bld) 8.9 % 0-10 [facility] Neutrophil percentageOrdered By: remedios Etienne on 07-11-2024 Neutrophils/100 WBC (Bld) 43.3 % Low 47-70 [facility] Platelet countOrdered By: Edwar Etienne on 07-11-2024 Platelets (Bld) [#/Vol] 186 10*3/uL 150-450 [facility] Potassium measurement (mass/ volume)Ordered By: Keven Etienne on 07-11-2024 Potassium (Unsp spec) [Mass/Vol] 4.3 mmol/L 3.3-5.1 [facility] RBC Auto (Bld) [#/Vol]Ordere d By: Keven Etienne on 07-11-2024 RBC (Bld) [#/Vol] 4.00 10*6/uL Low 4.6-6.2 [facility] Serum creatinine measurement (mass/volume)Ordered By: Keven Etienne on 07-11-2024 Creatinine [Mass/Vol] 0.86 mg/dL 0.70-1.20 [facility] Serum glucose measurement (m ass/volume)Ordered By: Keven Etienne on 07-11-2024 Glucose [Mass/Vol] 91 mg/dL 70-99 [facility] Serum or plasma calcium ratna urement (mass/volume)Ordered By: Keven Etienne on 07-11-2024 Calcium [Mass/Vol] 8.8 mg/dL 7.6-11.0 [facility] Serum or plasma urea nitroge n measurement (mass/volume)Ordered By: Keven Etienne on 07-11-2024 Urea nitrogen [Mass/Vol] 19 mg/dL 4-19 [facility] Sodium levelOrdered By: Rita Etienne on 07-11-2024 Sodium [Moles/Vol] 139 mmol/L 133-145 [facility] White blood cell (WBC) count Ordered By: Keven Etienne on 07-11-2024 WBC (Bld) [#/Vol] 6.7 10*3/uL 4.4-11.0 [facility] Absolute lymphocyte countOrd ered By: Keven Etienne on 07-04-2024 Lymphocytes Auto (Unsp spec) [#/Vol] 2.53 10*3/uL 0.83-4.51 [facility] Anion gap in Serum or Plasma Ordered By: Keven Etienne on 07-04-2024 Anion gap [Moles/Vol] 10 mmol/L 5-15 [facility] Automated lymphocyte count a s percentage of total leukocytesOrdered By: Keven Etienne on 07-04-2024 Lymphocytes/100 WBC Auto (Unsp spec) 38.2 % 19-41 [facility] BUN/creatinine ratioOrdered By: Keven Etienne on 07-04-2024 Urea nitrogen/Creatinine [Mass ratio] 15.7 mg/mg 10-20 [facility] Basophil percentageOrdered B y: Keven Etienne on 07-04-2024 Basophils/100 WBC (Bld) 0.3 % 0-1 [facility] Carbon dioxide, total [Moles /volume] in Central venous bloodOrdered By: Keven Etienne on 07-04-2024 CO2 [Moles/Vol] 25.9 mmol/L 21.0-32.0 [facility] Chloride assayOrdered By: Edwar Etienne on 07-04-2024 Chloride [Moles/Vol] 105 mmol/L 98-108 [facility] Eosinophil percentageOrdered By: Keven Etienne on 07-04-2024 Eosinophils/100 WBC (Bld) 6.8 % High 0-5 [facility] Erythrocyte distribution wid th ratioOrdered By: Keven Etienne on 07-04-2024 Erythrocyte distribution width (RBC) [Ratio] 12.9 % 11.6-14.6 [facility] Erythrocyte distribution wid th standard deviationOrdered By: Keven Etienne on 07-04-2024 Erythrocyte distribution width (RBC) [Ratio] 41.9 fl 35.1-43.9 [facility] Glomerular filtration rate ( GFR) estimation/1.73 sq m using serum, plasma, or whole bOrdered By: Keven Etienne on 07-04-2024 GFR/1.73 sq M.predicted among non-blacks MDRD (S/P/Bld) [Vol rate/Area] 86 mL/min/{1.73_m2} >60 [facility] Hematocrit Auto (Bld) [Volum e fraction]Ordered By: Keven Etienne on 07-04-2024 Hematocrit (Bld) [Volume fraction] 37.0 % Low 40-54 [facility] Hemoglobin measurementOrdere d By: Keven Batemanjuan luis on 07-04-2024 Hemoglobin (Bld) [Mass/Vol] 12.2 g/dL Low 13.0-16.5 [facility] Immature granulocytes/100 WB C Auto (Bld)Ordered By: Ritajuan alberto Monicodollyjuan luis on 07-04-2024 Immature granulocytes/100 WBC (Bld) 0.300 % 0.0-0.9 [facility] MCV (mean corpuscular volume ) determinationOrdered By: Edwarfrannycadenkeron Marcdollyjuan luis on 07-04-2024 MCV (RBC) [Entitic vol] 88.5 fL 80-94 [facility] Mean corpuscular hemoglobin (MCH) determinationOrdered By: Edwarremedios Marcdollyjuan luis on 07-04-2024 MCH (RBC) [Entitic mass] 29.2 pg 27.0-32.0 [facility] Monocyte percentageOrdered B y: Edwarfrannycadenkeron Marcdollyjuan luis on 07-04-2024 Monocytes/100 WBC (Bld) 9.2 % 0-10 [facility] Neutrophil percentageOrdered By: remedios Monicodollyjuan luis on 07-04-2024 Neutrophils/100 WBC (Bld) 45.2 % Low 47-70 [facility] Platelet countOrdered By: Edwar remedios Monicodollyjuan luis on 07-04-2024 Platelets (Bld) [#/Vol] 187 10*3/uL 150-450 [facility] Potassium measurement (mass/ volume)Ordered By: Ritacadenkeron Etienne on 07-04-2024 Potassium (Unsp spec) [Mass/Vol] 4.4 mmol/L 3.3-5.1 [facility] RBC Auto (Bld) [#/Vol]Ordere d By: Keven Monicodollyjuan luis on 07-04-2024 RBC (Bld) [#/Vol] 4.18 10*6/uL Low 4.6-6.2 [facility] Serum creatinine measurement (mass/volume)Ordered By: Keven Etienne on 07-04-2024 Creatinine [Mass/Vol] 0.87 mg/dL 0.70-1.20 [facility] Serum glucose measurement (m ass/volume)Ordered By: Keven Etienne on 07-04-2024 Glucose [Mass/Vol] 95 mg/dL 70-99 [facility] Serum or plasma calcium ratna urement (mass/volume)Ordered By: Keven Etienne on 07-04-2024 Calcium [Mass/Vol] 9.0 mg/dL 7.6-11.0 [facility] Serum or plasma urea nitroge n measurement (mass/volume)Ordered By: Keven Etienne on 07-04-2024 Urea nitrogen [Mass/Vol] 14 mg/dL 4-19 [facility] Sodium levelOrdered By: Edwar poojaambika Jaimie on 07-04-2024 Sodium [Moles/Vol] 141 mmol/L 133-145 [facility] White blood cell (WBC) count Ordered By: Keven Etienne on 07-04-2024 WBC (Bld) [#/Vol] 6.6 10*3/uL 4.4-11.0 [facility] Absolute lymphocyte countOrd ered By: Keven Etienne on 06-26-2024 Lymphocytes Auto (Unsp spec) [#/Vol] 2.99 10*3/uL 0.83-4.51 [facility] Anion gap in Serum or Plasma Ordered By: Keven Etienne on 06-26-2024 Anion gap [Moles/Vol] 8 mmol/L 5-15 [facility] Automated lymphocyte count a s percentage of total leukocytesOrdered By: Keven Etienne on 06-26-2024 Lymphocytes/100 WBC Auto (Unsp spec) 45.0 % High 19-41 [facility] BUN/creatinine ratioOrdered By: Keven Etienne on 06-26-2024 Urea nitrogen/Creatinine [Mass ratio] 18.5 mg/mg 10-20 [facility] Basophil percentageOrdered B y: Keven Etienne on 06-26-2024 Basophils/100 WBC (Bld) 0.6 % 0-1 [facility] Carbon dioxide, total [Moles /volume] in Central venous bloodOrdered By: Keven Etienne on 06-26-2024 CO2 [Moles/Vol] 25.7 mmol/L 21.0-32.0 [facility] Chloride assayOrdered By: Edwar Etienne on 06-26-2024 Chloride [Moles/Vol] 105 mmol/L 98-108 [facility] Eosinophil percentageOrdered By: Keven Etienne 06-26-2024 Eosinophils/100 WBC (Bld) 4.1 % 0-5 [facility] Erythrocyte distribution wid th ratioOrdered By: Keven Etienne on 06-26-2024 Erythrocyte distribution width (RBC) [Ratio] 13.0 % 11.6-14.6 [facility] Erythrocyte distribution wid th standard deviationOrdered By: Keven Etienne on 06-26-2024 Erythrocyte distribution width (RBC) [Ratio] 42.1 fl 35.1-43.9 [facility] Glomerular filtration rate ( GFR) estimation/1.73 sq m using serum, plasma, or whole bOrdered By: Keven Etienne on 06-26-2024 GFR/1.73 sq M.predicted among non-blacks MDRD (S/P/Bld) [Vol rate/Area] 85 mL/min/{1.73_m2} >60 [facility] Hematocrit Auto (Bld) [Volum e fraction]Ordered By: Keven Etienne 06-26-2024 Hematocrit (Bld) [Volume fraction] 35.2 % Low 40-54 [facility] Hemoglobin measurementOrdere d By: Keven Etienne 06-26-2024 Hemoglobin (Bld) [Mass/Vol] 11.7 g/dL Low 13.0-16.5 [facility] Immature granulocytes/100 WB C Auto (Bld)Ordered By: Keven Etienne 06-26-2024 Immature granulocytes/100 WBC (Bld) 0.200 % 0.0-0.9 [facility] MCV (mean corpuscular volume ) determinationOrdered By: Keven Etienne 06-26-2024 MCV (RBC) [Entitic vol] 88.4 fL 80-94 [facility] Mean corpuscular hemoglobin (MCH) determinationOrdered By: Keven Etienne 06-26-2024 MCH (RBC) [Entitic mass] 29.4 pg 27.0-32.0 [facility] Monocyte percentageOrdered B y: Keven Etienne on 06-26-2024 Monocytes/100 WBC (Bld) 9.5 % 0-10 [facility] Neutrophil percentageOrdered By: Keven Etienne on 06-26-2024 Neutrophils/100 WBC (Bld) 40.6 % Low 47-70 [facility] Platelet countOrdered By: Edwar Etienne on 06-26-2024 Platelets (Bld) [#/Vol] 177 10*3/uL 150-450 [facility] Potassium measurement (mass/ volume)Ordered By: Keven Etienne on 06-26-2024 Potassium (Unsp spec) [Mass/Vol] 4.4 mmol/L 3.3-5.1 [facility] RBC Auto (Bld) [#/Vol]Ordere d By: Keven Etienne on 06-26-2024 RBC (Bld) [#/Vol] 3.98 10*6/uL Low 4.6-6.2 [facility] Serum creatinine measurement (mass/volume)Ordered By: Keven Etienne on 06-26-2024 Creatinine [Mass/Vol] 0.91 mg/dL 0.70-1.20 [facility] Serum glucose measurement (m ass/volume)Ordered By: Keven Etienne on 06-26-2024 Glucose [Mass/Vol] 90 mg/dL 70-99 [facility] Serum or plasma calcium ratna urement (mass/volume)Ordered By: Keven Etienne on 06-26-2024 Calcium [Mass/Vol] 8.9 mg/dL 7.6-11.0 [facility] Serum or plasma urea nitroge n measurement (mass/volume)Ordered By: Keven Etienne on 06-26-2024 Urea nitrogen [Mass/Vol] 17 mg/dL 4-19 [facility] Sodium levelOrdered By: Rita Etienne on 06-26-2024 Sodium [Moles/Vol] 139 mmol/L 133-145 [facility] White blood cell (WBC) count Ordered By: Keven Etienne on 06-26-2024 WBC (Bld) [#/Vol] 6.7 10*3/uL 4.4-11.0 [facility] Absolute lymphocyte countOrd ered By: Keven Etienne on 06-19-2024 Lymphocytes Auto (Unsp spec) [#/Vol] 2.85 10*3/uL 0.83-4.51 [facility] Anion gap in Serum or Plasma Ordered By: Keven Etienne on 06-19-2024 Anion gap [Moles/Vol] 10 mmol/L 5-15 [facility] Automated lymphocyte count a s percentage of total leukocytesOrdered By: Keven Etienne on 06-19-2024 Lymphocytes/100 WBC Auto (Unsp spec) 41.2 % High 19-41 [facility] BUN/creatinine ratioOrdered By: Ritanewman lakekeron Etienne on 06-19-2024 Urea nitrogen/Creatinine [Mass ratio] 24.2 mg/mg High 10-20 [facility] Basophil percentageOrdered B y: Keven Etienne on 06-19-2024 Basophils/100 WBC (Bld) 0.6 % 0-[address] [facility] Carbon dioxide, total [Moles /volume] in Central venous bloodOrdered By: Keven Etienne on 06-19-2024 CO2 [Moles/Vol] 25.5 mmol/L 21.0-32.0 [facility] Chloride assayOrdered By: Edwar Etienne on 06-19-2024 Chloride [Moles/Vol] 105 mmol/L 98-108 [facility] Eosinophil percentageOrdered By: remedios Etienne on 06-19-2024 Eosinophils/100 WBC (Bld) 4.9 % 0-5 [facility] Erythrocyte distribution wid th ratioOrdered By: Keven Etienne on 06-19-2024 Erythrocyte distribution width (RBC) [Ratio] 13.0 % 11.6-14.6 [facility] Erythrocyte distribution wid th standard deviationOrdered By: Keven Etienne on 06-19-2024 Erythrocyte distribution width (RBC) [Ratio] 42.8 fl 35.1-43.9 [facility] Glomerular filtration rate ( GFR) estimation/1.73 sq m using serum, plasma, or whole bOrdered By: Keven Eteinne on 06-19-2024 GFR/1.73 sq M.predicted among non-blacks MDRD (S/P/Bld) [Vol rate/Area] 86 mL/min/{1.73_m2} >60 [facility] Hematocrit Auto (Bld) [Volum e fraction]Ordered By: Keven Etienne on 06-19-2024 Hematocrit (Bld) [Volume fraction] 36.0 % Low 40-54 [facility] Hemoglobin measurementOrdere d By: remedios Etienne on 06-19-2024 Hemoglobin (Bld) [Mass/Vol] 11.8 g/dL Low 13.0-16.5 [facility] Immature granulocytes/100 WB C Auto (Bld)Ordered By: remedios Etienne on 06-19-2024 Immature granulocytes/100 WBC (Bld) 0.300 % 0.0-0.9 [facility] MCV (mean corpuscular volume ) determinationOrdered By: Keven Etienne on 06-19-2024 MCV (RBC) [Entitic vol] 90.0 fL 80-94 [facility] Mean corpuscular hemoglobin (MCH) determinationOrdered By: [facility] on 06-19-2024 MCH (RBC) [Entitic mass] 29.5 pg 27.0-32.0 [facility] Monocyte percentageOrdered B y: Keven Etienne on 06-19-2024 Monocytes/100 WBC (Bld) 9.5 % 0-10 [facility] Neutrophil percentageOrdered By: [facility] on 06-19-2024 Neutrophils/100 WBC (Bld) 43.5 % Low 47-70 [facility] Platelet countOrdered By: Edwar Etienne on 06-19-2024 Platelets (Bld) [#/Vol] 185 10*3/uL 150-450 [facility] Potassium measurement (mass/ volume)Ordered By: Keven Etienne 06-19-2024 Potassium (Unsp spec) [Mass/Vol] 4.4 mmol/L 3.3-5.1 [facility] RBC Auto (Bld) [#/Vol]Ordere d By: Keven Etienne on 06-19-2024 RBC (Bld) [#/Vol] 4.00 10*6/uL Low 4.6-6.2 [facility] Serum creatinine measurement (mass/volume)Ordered By: Keven Etienne on 06-19-2024 Creatinine [Mass/Vol] 0.89 mg/dL 0.70-1.20 [facility] Serum glucose measurement (m ass/volume)Ordered By: Keven Etienne on 06-19-2024 Glucose [Mass/Vol] 91 mg/dL 70-99 [facility] Serum or plasma calcium ratna urement (mass/volume)Ordered By: Keven Etienne on 06-19-2024 Calcium [Mass/Vol] 9.0 mg/dL 7.6-11.0 [facility] Serum or plasma urea nitroge n measurement (mass/volume)Ordered By: Keven Etienne on 06-19-2024 Urea nitrogen [Mass/Vol] 22 mg/dL High 4-19 [facility] [facility] Sodium levelOrdered By: Rita juan alberto Jaimie on 06-19-2024 Sodium [Moles/Vol] 141 mmol/L 133-145 [facility] White blood cell (WBC) count Ordered By: Keven Etienne on 06-19-2024 WBC (Bld) [#/Vol] 6.9 10*3/uL 4.4-11.0 [facility] Absolute lymphocyte countOrd ered By: Keven Etienne on 06-12-2024 Lymphocytes Auto (Unsp spec) [#/Vol] 2.89 10*3/uL 0.83-4.51 [facility] Anion gap in Serum or Plasma Ordered By: Keven Etienne on 06-12-2024 Anion gap [Moles/Vol] 10 mmol/L 5-15 [facility] Automated lymphocyte count a s percentage of total leukocytesOrdered By: Keven Etienne on 06-12-2024 Lymphocytes/100 WBC Auto (Unsp spec) 41.1 % High 19-41 [facility] BUN/creatinine ratioOrdered By: Keven Etienne on 06-12-2024 Urea nitrogen/Creatinine [Mass ratio] 20.6 mg/mg High 10-20 [facility] Basophil percentageOrdered B y: Keven Etienne on 06-12-2024 Basophils/100 WBC (Bld) 0.3 % 0-1 [facility] Carbon dioxide, total [Moles /volume] in Central venous bloodOrdered By: Keven Etienne on 06-12-2024 CO2 [Moles/Vol] 24.3 mmol/L 21.0-32.0 [facility] Chloride assayOrdered By: Edwar Etienne on 06-12-2024 Chloride [Moles/Vol] 105 mmol/L 98-108 [facility] Eosinophil percentageOrdered By: Keven Etienne on 06-12-2024 Eosinophils/100 WBC (Bld) 3.6 % 0-5 [facility] Erythrocyte distribution wid th ratioOrdered By: Keven Etienne on 06-12-2024 Erythrocyte distribution width (RBC) [Ratio] 12.9 % 11.6-14.6 [facility] Erythrocyte distribution wid th standard deviationOrdered By: Keven Etienne on 06-12-2024 Erythrocyte distribution width (RBC) [Ratio] 41.6 fl 35.1-43.9 [facility] Glomerular filtration rate ( GFR) estimation/1.73 sq m using serum, plasma, or whole bOrdered By: Keven Etienne on 06-12-2024 GFR/1.73 sq M.predicted among non-blacks MDRD (S/P/Bld) [Vol rate/Area] 87 mL/min/{1.73_m2} >60 [facility] Hematocrit Auto (Bld) [Volum e fraction]Ordered By: Keven Etienne on 06-12-2024 Hematocrit (Bld) [Volume fraction] 34.2 % Low 40-54 [facility] Hemoglobin measurementOrdere d By: Keven Etienne on 06-12-2024 Hemoglobin (Bld) [Mass/Vol] 11.4 g/dL Low 13.0-16.5 [facility] Immature granulocytes/100 WB C Auto (Bld)Ordered By: Keven Etienne on 06-12-2024 Immature granulocytes/100 WBC (Bld) 0.100 % 0.0-0.9 [facility] MCV (mean corpuscular volume ) determinationOrdered By: Keven Etienne on 06-12-2024 MCV (RBC) [Entitic vol] 88.4 fL 80-94 [facility] Mean corpuscular hemoglobin (MCH) determinationOrdered By: frannynewman lakekeron Etienne on 06-12-2024 MCH (RBC) [Entitic mass] 29.5 pg 27.0-32.0 [facility] Monocyte percentageOrdered B y: Keven Etienne on 06-12-2024 Monocytes/100 WBC (Bld) 9.4 % 0-10 [facility] Neutrophil percentageOrdered By: frannynewman lakekeron Etienne on 06-12-2024 Neutrophils/100 WBC (Bld) 45.5 % Low 47-70 [facility] Platelet countOrdered By: Edwar nitishkeron Etienne on 06-12-2024 Platelets (Bld) [#/Vol] 188 10*3/uL 150-450 [facility] Potassium measurement (mass/ volume)Ordered By: Keven Etienne on 06-12-2024 Potassium (Unsp spec) [Mass/Vol] 4.2 mmol/L 3.3-5.1 [facility] RBC Auto (Bld) [#/Vol]Ordere d By: Keven Etienne on 06-12-2024 RBC (Bld) [#/Vol] 3.87 10*6/uL Low 4.6-6.2 [facility] Serum creatinine measurement (mass/volume)Ordered By: Keven Etienne on 06-12-2024 Creatinine [Mass/Vol] 0.85 mg/dL 0.70-1.20 [facility] Serum glucose measurement (m ass/volume)Ordered By: Keven Etienne on 06-12-2024 Glucose [Mass/Vol] 94 mg/dL 70-99 [facility] Serum or plasma calcium ratna urement (mass/volume)Ordered By: Keven Etienne on 06-12-2024 Calcium [Mass/Vol] 8.9 mg/dL 7.6-11.0 [facility] Serum or plasma urea nitroge n measurement (mass/volume)Ordered By: Keven Marcdollyjuan luis on 06-12-2024 Urea nitrogen [Mass/Vol] 18 mg/dL 4-19 [facility] Sodium levelOrdered By: Edwarfranny avendano Jaimie on 06-12-2024 Sodium [Moles/Vol] 140 mmol/L 133-145 [facility] White blood cell (WBC) count Ordered By: Keven Etienne on 06-12-2024 WBC (Bld) [#/Vol] 7.0 10*3/uL 4.4-11.0 [facility] Absolute lymphocyte countOrd ered By: Keven Etienne on 06-05-2024 Lymphocytes Auto (Unsp spec) [#/Vol] 2.57 10*3/uL 0.83-4.51 [facility] Anion gap in Serum or Plasma Ordered By: Keven Etienne on 06-05-2024 Anion gap [Moles/Vol] 10 mmol/L 5-15 [facility] Automated lymphocyte count a s percentage of total leukocytesOrdered By: Keven Etienne on 06-05-2024 Lymphocytes/100 WBC Auto (Unsp spec) 40.3 % 19-41 [facility] BUN/creatinine ratioOrdered By: Keven Etienne on 06-05-2024 Urea nitrogen/Creatinine [Mass ratio] 17.2 mg/mg 10-20 [facility] Basophil percentageOrdered B y: Ritacadenkeron Etienne on 06-05-2024 Basophils/100 WBC (Bld) 0.5 % 0-[address] [facility] Carbon dioxide, total [Moles /volume] in Central venous bloodOrdered By: Keven Etienne on 06-05-2024 CO2 [Moles/Vol] 25.7 mmol/L 21.0-32.0 [facility] Chloride assayOrdered By: Edwar frannyjuan alberto Etienne on 06-05-2024 Chloride [Moles/Vol] 106 mmol/L 98-108 [facility] Eosinophil percentageOrdered By: Keven Etienne on 06-05-2024 Eosinophils/100 WBC (Bld) 5.2 % High 0-5 [facility] Erythrocyte distribution wid th ratioOrdered By: Keven Etienne on 06-05-2024 Erythrocyte distribution width (RBC) [Ratio] 12.5 % 11.6-14.6 [facility] Erythrocyte distribution wid th standard deviationOrdered By: Keven Etienne on 06-05-2024 Erythrocyte distribution width (RBC) [Ratio] 40.6 fl 35.1-43.9 [facility] Glomerular filtration rate ( GFR) estimation/1.73 sq m using serum, plasma, or whole bOrdered By: Keven Etienne on 06-05-2024 GFR/1.73 sq M.predicted among non-blacks MDRD (S/P/Bld) [Vol rate/Area] 87 mL/min/{1.73_m2} >60 [facility] Hematocrit Auto (Bld) [Volum e fraction]Ordered By: Keven Etienne on 06-05-2024 Hematocrit (Bld) [Volume fraction] 35.3 % Low 40-54 [facility] Hemoglobin measurementOrdere d By: Keven Etienne on 06-05-2024 Hemoglobin (Bld) [Mass/Vol] 11.9 g/dL Low 13.0-16.5 [facility] Immature granulocytes/100 WB C Auto (Bld)Ordered By: Keven Etienne on 06-05-2024 Immature granulocytes/100 WBC (Bld) 0.300 % 0.0-0.9 [facility] MCV (mean corpuscular volume ) determinationOrdered By: Keven Etienne on 06-05-2024 MCV (RBC) [Entitic vol] 88.7 fL 80-94 [facility] Mean corpuscular hemoglobin (MCH) determinationOrdered By: Keven Etienne on 06-05-2024 MCH (RBC) [Entitic mass] 29.9 pg 27.0-32.0 [facility] Monocyte percentageOrdered B y: Keven Etienne on 06-05-2024 Monocytes/100 WBC (Bld) 10.8 % High 0-10 [facility] Neutrophil percentageOrdered By: Keven Etienne on 06-05-2024 Neutrophils/100 WBC (Bld) 42.9 % Low 47-70 [facility] Platelet countOrdered By: Edwar Etienne on 06-05-2024 Platelets (Bld) [#/Vol] 163 10*3/uL 150-450 [facility] Potassium measurement (mass/ volume)Ordered By: Keven Monicomarisela on 06-05-2024 Potassium (Unsp spec) [Mass/Vol] 4.2 mmol/L 3.3-5.1 [facility] RBC Auto (Bld) [#/Vol]Ordere d By: Keven Etienne on 06-05-2024 RBC (Bld) [#/Vol] 3.98 10*6/uL Low 4.6-6.2 [facility] Serum creatinine measurement (mass/volume)Ordered By: Keven Monicomarisela on 06-05-2024 Creatinine [Mass/Vol] 0.86 mg/dL 0.70-1.20 [facility] Serum glucose measurement (m ass/volume)Ordered By: Keven Monicomarisela 06-05-2024 Glucose [Mass/Vol] 95 mg/dL 70-99 [facility] Serum or plasma calcium ratna urement (mass/volume)Ordered By: Keven Monicomarisela 06-05-2024 Calcium [Mass/Vol] 9.0 mg/dL 7.6-11.0 [facility] Serum or plasma urea nitroge n measurement (mass/volume)Ordered By: Keven Monicodollyjuan luis on 06-05-2024 Urea nitrogen [Mass/Vol] 15 mg/dL 4-19 [facility] Sodium levelOrdered By: Rita Etienne on 06-05-2024 Sodium [Moles/Vol] 142 mmol/L 133-145 [facility] White blood cell (WBC) count Ordered By: Keven Monicomarisela 06-05-2024 WBC (Bld) [#/Vol] 6.4 10*3/uL 4.4-11.0 [facility] Cerv Spine 2 or 3 Viewson Cerv Spine 2 or 3 Views Normal [facility] Orthopedic Visit Reporton Orthopedic Visit Report Normal [facility] Absolute lymphocyte countOrd ered By: Keven Etienne on 05-29-2024 Lymphocytes Auto (Unsp spec) [#/Vol] 2.20 10*3/uL 0.83-4.51 [facility] Absolute neutrophil countOrd ered By: Keven Etienne on 05-29-2024 Neutrophils (Bld) [#/Vol] 3.3 10*3/uL 2.0-7.7 [facility] Anion gap in Serum or Plasma Ordered By: Keven Etienne on 05-29-2024 Anion gap [Moles/Vol] 10 mmol/L 5-15 [facility] Automated lymphocyte count a s percentage of total leukocytesOrdered By: Keven Etienne on 05-29-2024 Lymphocytes/100 WBC Auto (Unsp spec) 34.3 % 19-41 [facility] BUN/creatinine ratioOrdered By: Keven Etienne on 05-29-2024 Urea nitrogen/Creatinine [Mass ratio] 19.7 mg/mg 10-20 [facility] Basophil percentageOrdered B y: Keven Etienne on 05-29-2024 Basophils/100 WBC (Bld) 0.6 % 0-[address] [facility] Carbon dioxide, total [Moles /volume] in Central venous bloodOrdered By: Keven Etienne on 05-29-2024 CO2 [Moles/Vol] 25.2 mmol/L 21.0-32.0 [facility] Chloride assayOrdered By: Edwar Etienne on 05-29-2024 Chloride [Moles/Vol] 108 mmol/L 98-108 [facility] Eosinophil percentageOrdered By: Keven Etienne on 05-29-2024 Eosinophils/100 WBC (Bld) 4.2 % 0-5 [facility] Erythrocyte distribution wid th (RBC) [Ratio]Ordered By: Keven Etienne on 05-29-2024 Erythrocyte distribution width (RBC) [Entitic vol] 41.1 fL 35.1-43.9 [facility] Erythrocyte distribution wid th ratioOrdered By: Keven Etienne on 05-29-2024 Erythrocyte distribution width (RBC) [Ratio] 12.6 % 11.6-14.6 [facility] Erythrocyte distribution wid th standard deviationOrdered By: Keven Etienne on 05-29-2024 Erythrocyte distribution width (RBC) [Ratio] 41.1 fl 35.1-43.9 [facility] GFR/1.73 sq M.predicted darrick g non-blacks MDRD (S/P/Bld) [Vol rate/Area]Ordered By: Keven Etienne on 05-29-2024 Estimated GFR (MDRD) Non-Af Amer 78 >60 [facility] Comment on above: mL/min/1.73m2 CKD-EP I Creatinine Equation (2020) Glomerular filtration rate ( GFR) estimation/1.73 sq m using serum, plasma, or whole bOrdered By: Keven Etienne on 05-29-2024 GFR/1.73 sq M.predicted among non-blacks MDRD (S/P/Bld) [Vol rate/Area] 78 mL/min/{1.73_m2} >60 [facility] Hematocrit Auto (Bld) [Volum e fraction]Ordered By: Keven Etienne on 05-29-2024 Hematocrit (Bld) [Volume fraction] 37.4 % Low 40-54 [facility] Hemoglobin measurementOrdere d By: Keven Etienne on 05-29-2024 Hemoglobin (Bld) [Mass/Vol] 12.3 g/dL Low 13.0-16.5 [facility] Immature granulocytes/100 WB C Auto (Bld)Ordered By: Keven Etienne 05-29-2024 Immature granulocytes/100 WBC (Bld) 0.500 % 0.0-0.9 [facility] Comment on above: IG% - Immature Granu locytes (promyelocytes, myelocytes and metamyelocytes) > 1% indicates that a LEFT SHIFT is Present. Lymphocytes Auto (Unsp spec) [#/Vol]Ordered By: Keven Etienne on 05-29-2024 Lymphocytes (Bld) [#/Vol] 2.20 10*3/uL 0.83-4.51 [facility] Lymphocytes/100 WBC Auto (Un sp spec)Ordered By: Keven Batemanjuan luis on 05-29-2024 Lymphocytes/100 WBC (Bld) 34.3 % 19-41 [facility] MCV (mean corpuscular volume ) determinationOrdered By: Keven Monicodollyjuan luis on 05-29-2024 MCV (RBC) [Entitic vol] 89.3 fL 80-94 [facility] Mean corpuscular hemoglobin (MCH) determinationOrdered By: Edwarfrannyjuan alberto Monicodollyjuan luis on 05-29-2024 MCH (RBC) [Entitic mass] 29.4 pg 27.0-32.0 [facility] Mean corpuscular hemoglobin concentration (MCHC) determinationOrdered By: nitishkeron Monicodollyjuan luis on 05-29-2024 MCHC (RBC) [Mass/Vol] 32.9 g/dL 32-36 [facility] Mean platelet volume determi nationOrdered By: Keven Batemanjuan luis on 05-29-2024 Platelet mean volume (Bld) [Entitic vol] 9.2 fL 6.2-12.0 [facility] Monocyte percentageOrdered B y: Keven Etienne on 05-29-2024 Monocytes/100 WBC (Bld) 8.4 % 0-10 [facility] Neutrophil percentageOrdered By: Edwarremedios Marcdollyjuan luis on 05-29-2024 Neutrophils/100 WBC (Bld) 52.0 % 47-70 [facility] Nucleated red blood cell per centageOrdered By: Keven Monicodollyjuan luis on 05-29-2024 Nucleated RBC/100 WBC (Bld) [Ratio] 0 % 0-5 [facility] Platelet countOrdered By: Edwar Etienne on 05-29-2024 Platelets (Bld) [#/Vol] 185 10*3/uL 150-450 [facility] Potassium (Unsp spec) [Mass/ Vol]Ordered By: Keven Monicodollyjuan luis on 05-29-2024 Potassium [Moles/Vol] 4.3 mmol/L 3.3-5.1 [facility] Potassium measurement (mass/ volume)Ordered By: Keven Etienne on 05-29-2024 Potassium (Unsp spec) [Mass/Vol] 4.3 mmol/L 3.3-5.1 [facility] RBC Auto (Bld) [#/Vol]Ordere d By: Keven Etienne on 05-29-2024 RBC (Bld) [#/Vol] 4.19 10*6/uL Low 4.6-6.2 [facility] Serum creatinine measurement (mass/volume)Ordered By: Keven Etienne on 05-29-2024 Creatinine [Mass/Vol] 0.97 mg/dL 0.70-1.20 [facility] Serum glucose measurement (m ass/volume)Ordered By: Keven Etienne on 05-29-2024 Glucose [Mass/Vol] 95 mg/dL 70-99 [facility] Serum or plasma calcium ratna urement (mass/volume)Ordered By: Keven Etienne on 05-29-2024 Calcium [Mass/Vol] 8.8 mg/dL 7.6-11.0 [facility] Serum or plasma urea nitroge n measurement (mass/volume)Ordered By: Keven Etienne on 05-29-2024 Urea nitrogen [Mass/Vol] 19 mg/dL 4-19 [facility] Sodium levelOrdered By: Rita Etienne on 05-29-2024 Sodium [Moles/Vol] 143 mmol/L 133-145 [facility] White blood cell (WBC) count Ordered By: Keven Etienne on 05-29-2024 WBC (Bld) [#/Vol] 6.4 10*3/uL 4.4-11.0 [facility] Abdomen Single Viewon 2024 Abdomen Single View Normal [facility] Gastroenterology Visit Repor ton 05-25-2024 Gastroenterology Visit Report Normal [facility] Absolute lymphocyte countOrd ered By: Keven Etienne on 05-22-2024 Lymphocytes Auto (Unsp spec) [#/Vol] 2.46 10*3/uL 0.83-4.51 [facility] Absolute neutrophil countOrd ered By: Keven Etienne on 05-22-2024 Neutrophils (Bld) [#/Vol] 4.3 10*3/uL 2.0-7.7 [facility] Anion gap in Serum or Plasma Ordered By: Keven Etienne on 05-22-2024 Anion gap [Moles/Vol] 10 mmol/L 5-15 [facility] Automated lymphocyte count a s percentage of total leukocytesOrdered By: Keven Etienne on 05-22-2024 Lymphocytes/100 WBC Auto (Unsp spec) 32.5 % 19-41 [facility] BUN/creatinine ratioOrdered By: frannynewman lakekeron Etienne on 05-22-2024 Urea nitrogen/Creatinine [Mass ratio] 24.1 mg/mg High 10-20 [facility] Basophil percentageOrdered B y: Keven Etienne on 05-22-2024 Basophils/100 WBC (Bld) 0.5 % 0-1 [facility] Bilirubin, totalOrdered By: Keven Etienne on 05-22-2024 Bilirubin [Mass/Vol] 0.44 mg/dL 0.00-1.30 [facility] Carbon dioxide, total [Moles /volume] in Central venous bloodOrdered By: Keven Etienne on 05-22-2024 CO2 [Moles/Vol] 23.9 mmol/L 21.0-32.0 [facility] Chloride assayOrdered By: Edwar Etienne on 05-22-2024 Chloride [Moles/Vol] 104 mmol/L 98-108 [facility] Eosinophil percentageOrdered By: Keven Etienne on 05-22-2024 Eosinophils/100 WBC (Bld) 2.5 % 0-5 [facility] Erythrocyte distribution wid th (RBC) [Ratio]Ordered By: Keven Etienne on 05-22-2024 Erythrocyte distribution width (RBC) [Entitic vol] 41.4 fL 35.1-43.9 [facility] Erythrocyte distribution wid th ratioOrdered By: [facility] on 05-22-2024 Erythrocyte distribution width (RBC) [Ratio] 12.7 % 11.6-14.6 [facility] Erythrocyte distribution wid th standard deviationOrdered By: Keven Etienne on 05-22-2024 Erythrocyte distribution width (RBC) [Ratio] 41.4 fl 35.1-43.9 [facility] GFR/1.73 sq M.predicted darrick g non-blacks MDRD (S/P/Bld) [Vol rate/Area]Ordered By: Keven Etienne on 05-22-2024 Estimated GFR (MDRD) Non-Af Amer 73 >60 [facility] Comment on above: mL/min/1.73m2 CKD-EP I Creatinine Equation (2020) Glomerular filtration rate ( GFR) estimation/1.73 sq m using serum, plasma, or whole bOrdered By: Keven Etienne on 05-22-2024 GFR/1.73 sq M.predicted among non-blacks MDRD (S/P/Bld) [Vol rate/Area] 73 mL/min/{1.73_m2} >60 [facility] Hematocrit Auto (Bld) [Volum e fraction]Ordered By: Keven Etienne on 05-22-2024 Hematocrit (Bld) [Volume fraction] 36.8 % Low 40-54 [facility] Hemoglobin measurementOrdere d By: Keven Etienne 05-22-2024 Hemoglobin (Bld) [Mass/Vol] 12.1 g/dL Low 13.0-16.5 [facility] Immature granulocytes/100 WB C Auto (Bld)Ordered By: Keven Etienne 05-22-2024 Immature granulocytes/100 WBC (Bld) 0.500 % 0.0-0.9 [facility] Comment on above: IG% - Immature Granu locytes (promyelocytes, myelocytes and metamyelocytes) > 1% indicates that a LEFT SHIFT is Present. Laboratory - Chemistry and C hemistry - challengeOrdered By: Keven Etienne on 05-22-2024 AST [Catalytic activity/Vol] 33 U/L <38 [facility] Comment on above: Hemolysis present, R esults could be affected. Lymphocytes Auto (Unsp spec) [#/Vol]Ordered By: Keven Etienne 05-22-2024 Lymphocytes (Bld) [#/Vol] 2.46 10*3/uL 0.83-4.51 [facility] Lymphocytes/100 WBC Auto (Un sp spec)Ordered By: Keven Etienne on 05-22-2024 Lymphocytes/100 WBC (Bld) 32.5 % 19-41 [facility] MCV (mean corpuscular volume ) determinationOrdered By: Keven Etienne on 05-22-2024 MCV (RBC) [Entitic vol] 89.1 fL 80-94 [facility] Mean corpuscular hemoglobin (MCH) determinationOrdered By: Keven Etienne on 05-22-2024 MCH (RBC) [Entitic mass] 29.3 pg 27.0-32.0 [facility] Mean corpuscular hemoglobin concentration (MCHC) determinationOrdered By: Keven Etienne on 05-22-2024 MCHC (RBC) [Mass/Vol] 32.9 g/dL 32-36 [facility] Mean platelet volume determi nationOrdered By: Keven Etienne on 05-22-2024 Platelet mean volume (Bld) [Entitic vol] 8.7 fL 6.2-12.0 [facility] Monocyte percentageOrdered B y: Keven Etienne on 05-22-2024 Monocytes/100 WBC (Bld) 7.4 % 0-10 [facility] Neutrophil percentageOrdered By: Keven Etienne on 05-22-2024 Neutrophils/100 WBC (Bld) 56.6 % 47-70 [facility] No Panel InformationOrdered By: Keven Etienne on 05-22-2024 33 U/L <38 [facility] Nucleated red blood cell per centageOrdered By: Keven Etienne on 05-22-2024 Nucleated RBC/100 WBC (Bld) [Ratio] 0 % 0-5 [facility] Platelet countOrdered By: Edwar Etienne on 05-22-2024 Platelets (Bld) [#/Vol] 217 10*3/uL 150-450 [facility] Potassium (Unsp spec) [Mass/ Vol]Ordered By: Keven Etienne on 05-22-2024 Potassium [Moles/Vol] 4.3 mmol/L 3.3-5.1 [facility] Comment on above: Hemolysis present, R esults could be affected. Potassium measurement (mass/ volume)Ordered By: Keven Etienne on 05-22-2024 Potassium (Unsp spec) [Mass/Vol] 4.3 mmol/L 3.3-5.1 [facility] RBC Auto (Bld) [#/Vol]Ordere d By: Keven Etienne on 05-22-2024 RBC (Bld) [#/Vol] 4.13 10*6/uL Low 4.6-6.2 [facility] Serum creatinine measurement (mass/volume)Ordered By: Keven Etienne on 05-22-2024 Creatinine [Mass/Vol] 1.03 mg/dL 0.70-1.20 [facility] Serum globulin measurementOr dered By: Keven Etienne on 05-22-2024 Globulin (S) [Mass/Vol] 2.4 g/dL 2.2-4.2 [facility] Serum glucose measurement (m ass/volume)Ordered By: Keven Etienne on 05-22-2024 Glucose [Mass/Vol] 91 mg/dL 70-99 [facility] Serum or plasma alanine olmedo otransferase (ALT) measurementOrdered By: Keven Etienne on 05-22-2024 ALT [Catalytic activity/Vol] 44 U/L <47 [facility] Serum or plasma albumin ratna urement (mass/volume)Ordered By: Keven Etienne 05-22-2024 Albumin [Mass/Vol] 3.3 g/dL Low 3.4-4.8 [facility] Serum or plasma albumin/glob ulin mass ratioOrdered By: Keven Etienne 05-22-2024 Albumin/Globulin [Mass ratio] 1.4 {ratio} 0.9-2.4 [facility] Serum or plasma alkaline garry sphatase measurementOrdered By: Keven Etienne 05-22-2024 ALP [Catalytic activity/Vol] 139 U/L High 40-129 [facility] Serum or plasma calcium ratna urement (mass/volume)Ordered By: Keven Etienne on 05-22-2024 Calcium [Mass/Vol] 8.8 mg/dL 7.6-11.0 [facility] Serum or plasma urea nitroge n measurement (mass/volume)Ordered By: Keven Etienne on 05-22-2024 Urea nitrogen [Mass/Vol] 25 mg/dL High 4-19 [facility] Sodium levelOrdered By: Rita Etienne on 05-22-2024 Sodium [Moles/Vol] 139 mmol/L 133-145 [facility] Total proteinOrdered By: Roby Etienne on 05-22-2024 Protein [Mass/Vol] 5.8 g/dL Low 5.9-8.4 [facility] White blood cell (WBC) count Ordered By: Keven Etienne on 05-22-2024 WBC (Bld) [#/Vol] 7.6 10*3/uL 4.4-11.0 [facility] Urine Cultureon 05-12-2024 URC Normal [facility] Comment on above: Performed By: #### L 400.0001, M100.2200 ####[facility] [address] [place], [place], [address] Anion gap in Serum or Plasma Ordered By: Corazon Wright on 05-11-2024 Anion gap [Moles/Vol] 10 mmol/L 5-15 [facility] BUN/creatinine ratioOrdered By: Corazon Wright on 05-11-2024 Urea nitrogen/Creatinine [Mass ratio] 35.5 mg/mg High 10-20 [facility] Basic Metabolic Profile (BMP )on 05-11-2024 BUN/CRE 35.5 RATIO High 11-27 [facility] Comment on above: Performed By: #### L 100.0500, L500.2500 ####[facility] [address] [place], [address] Calcium [Mass/Vol] 8.6 mg/dL Normal 7.6-11.0 [facility] Comment on above: Performed By: #### L 100.0500, L500.2500 ####[facility] [address] [place], [address] Chloride [Moles/Vol] 104 mmol/L Normal 98-108 [facility] Comment on above: Performed By: #### L 100.0500, L500.2500 ####[facility] [address] [place], [address] CO2 [Moles/Vol] 23.4 mmol/L Normal 21.0-32.0 [facility] Comment on above: Performed By: #### L 100.0500, L500.2500 ####[facility] [address] [place], [address] Creatinine [Mass/Vol] 0.96 mg/dL Normal 0.70-1.20 [facility] Comment on above: Performed By: #### L 100.0500, L500.2500 ####[facility] [address] [place], [address] ECRCL 57.40 ml/min Normal 50-250 [facility] Comment on above: Performed By: #### L 100.0500, L500.2500 ####[facility] [address] [place], [address] GAP 10 Normal 5-15 [facility] Comment on above: Performed By: #### L 100.0500, L500.2500 ####[facility] [address] [place], [address] GFR/1.73 sq M.predicted among non-blacks MDRD (S/P/Bld) [Vol rate/Area] 79 mL/min/{1.73_m2} Normal >60 [facility] Comment on above: Result Comment: mL/m in/1.73m2 CKD-EPI Creatinine Equation (2020) Performed By: #### L 100.0500, L500.2500 ####[facility] [facility] [address] [place], [address] Glucose [Mass/Vol] 116 mg/dL High 70-99 [facility] Comment on above: Performed By: #### L 100.0500, L500.2500 ####[facility] [address] [place], [address] Potassium [Moles/Vol] 4.5 mmol/L Normal 3.3-5.1 [facility] Comment on above: Performed By: #### L 100.0500, L500.2500 ####[facility] [address] [place], [address] Sodium [Moles/Vol] 137 mmol/L Normal 133-145 [facility] Comment on above: Performed By: #### L 100.0500, L500.2500 ####[facility] [address] [place], [address] Urea nitrogen [Mass/Vol] 34 mg/dL High 4-19 [facility] Comment on above: Performed By: #### L 100.0500, L500.2500 ####[facility] [address] [place], [address] CBC-Complete Blood Cnt No Di ffon 05-11-2024 Erythrocyte distribution width (RBC) [Ratio] 12.8 % Normal 11.6-14.6 [facility] Comment on above: Performed By: #### L 100.0500, L500.2500 ####[facility] [address] [place], [address] Hematocrit (Bld) [Volume fraction] 36.7 % Low 40-54 [facility] Comment on above: Performed By: #### L 100.0500, L500.2500 ####[facility] [address] [place], [address] Hemoglobin (Bld) [Mass/Vol] 12.3 g/dL Low 13.0-16.5 [facility] Comment on above: Performed By: #### L 100.0500, L500.2500 ####[facility] [address] [place], [address] MCH (RBC) [Entitic mass] 29.9 pg Normal 27.0-32.0 [facility] Comment on above: Performed By: #### L 100.0500, L500.2500 ####[facility] [address] [place], [address] MCHC (RBC) [Mass/Vol] 33.5 g/dL Normal 32-36 [facility] Comment on above: Performed By: #### L 100.0500, L500.2500 ####[facility] [address] [place], [address] MCV (RBC) [Entitic vol] 89.1 fL Normal 80-[address] [facility] Comment on above: Performed By: #### L 100.0500, L500.2500 ####[facility] [address] [place], [address] Platelet mean volume (Bld) [Entitic vol] 8.8 fL Normal 6.2-12.0 [facility] Comment on above: Performed By: #### L 100.0500, L500.2500 ####[facility] [address] [place], [address] Platelets (Bld) [#/Vol] 232 10*3/uL Normal 150-450 [facility] Comment on above: Performed By: #### L 100.0500, L500.2500 ####[facility] [address] [place], [address] RBC (Bld) [#/Vol] 4.12 10*6/uL Low 4.6-6.2 [facility] Comment on above: Performed By: #### L 100.0500, L500.2500 ####[facility] [address] [place], [address] RDW SD 41.8 fl Normal 35.1-43.9 [facility] Comment on above: Performed By: #### L 100.0500, L500.2500 ####[facility] [address] [place], [address] WBC (Bld) [#/Vol] 9.9 10*3/uL Normal 4.4-11.0 [facility] Comment on above: Performed By: #### L 100.0500, L500.2500 ####[facility] [address] [place], [address] Carbon dioxide, total [Moles /volume] in Central venous bloodOrdered By: Corazon Wright on 05-11-2024 CO2 [Moles/Vol] 23.4 mmol/L 21.0-32.0 [facility] Chloride assayOrdered By: Phil Wright on 05-11-2024 Chloride [Moles/Vol] 104 mmol/L 98-108 [facility] Erythrocyte distribution wid th (RBC) [Ratio]Ordered By: Corazon Wright on 05-11-2024 Erythrocyte distribution width (RBC) [Entitic vol] 41.8 fL 35.1-43.9 [facility] Erythrocyte distribution wid th ratioOrdered By: Corazon Wright on 05-11-2024 Erythrocyte distribution width (RBC) [Ratio] 12.8 % 11.6-14.6 [facility] Erythrocyte distribution wid th standard deviationOrdered By: Corazon Wright on 05-11-2024 Erythrocyte distribution width (RBC) [Ratio] 41.8 fl 35.1-43.9 [facility] Estimation of creatinine yahir aranceOrdered By: Corazon Wright on 05-11-2024 Estimated Creatinine Clearance Calc 57.40 ml/min 50-250 [facility] GFR/1.73 sq M.predicted darrick g non-blacks MDRD (S/P/Bld) [Vol rate/Area]Ordered By: Corazon Wright on 05-11-2024 Estimated GFR (MDRD) Non-Af Amer 79 >60 [facility] Comment on above: mL/min/1.73m2 CKD-EP I Creatinine Equation (2020) Glomerular filtration rate ( GFR) estimation/1.73 sq m using serum, plasma, or whole bOrdered By: Corazon Wright on 05-11-2024 GFR/1.73 sq M.predicted among non-blacks MDRD (S/P/Bld) [Vol rate/Area] 79 mL/min/{1.73_m2} >60 [facility] Hematocrit Auto (Bld) [Volum e fraction]Ordered By: Corazon Wright on 05-11-2024 Hematocrit (Bld) [Volume fraction] 36.7 % Low 40-54 [facility] Hemoglobin measurementOrdere d By: Corazon Wright on 05-11-2024 Hemoglobin (Bld) [Mass/Vol] 12.3 g/dL Low 13.0-16.5 [facility] MCV (mean corpuscular volume ) determinationOrdered By: Corazon Wright on 05-11-2024 MCV (RBC) [Entitic vol] 89.1 fL 80-[address] [facility] Mean corpuscular hemoglobin (MCH) determinationOrdered By: Corazon Wright on 05-11-2024 MCH (RBC) [Entitic mass] 29.9 pg 27.0-32.0 [facility] Mean corpuscular hemoglobin concentration (MCHC) determinationOrdered By: Corazon Wright on 05-11-2024 MCHC (RBC) [Mass/Vol] 33.5 g/dL 32-36 [facility] Mean platelet volume determi nationOrdered By: Corazon Wright on 05-11-2024 Platelet mean volume (Bld) [Entitic vol] 8.8 fL 6.2-12.0 [facility] Platelet countOrdered By: Phil Wright on 05-11-2024 Platelets (Bld) [#/Vol] 232 10*3/uL 150-450 [facility] Potassium (Unsp spec) [Mass/ Vol]Ordered By: Corazon Wright on 05-11-2024 Potassium [Moles/Vol] 4.5 mmol/L 3.3-5.1 [facility] Potassium measurement (mass/ volume)Ordered By: Corazon Wright on 05-11-2024 Potassium (Unsp spec) [Mass/Vol] 4.5 mmol/L 3.3-5.1 [facility] RBC Auto (Bld) [#/Vol]Ordere d By: Corazon Kyle on 05-11-2024 RBC (Bld) [#/Vol] 4.12 10*6/uL Low 4.6-6.2 [facility] Serum creatinine measurement (mass/volume)Ordered By: Corazon Wright on 05-11-2024 Creatinine [Mass/Vol] 0.96 mg/dL 0.70-1.20 [facility] Serum glucose measurement (m ass/volume)Ordered By: Corazon Wright on 05-11-2024 Glucose [Mass/Vol] 116 mg/dL High 70-99 [facility] Serum or plasma calcium ratna urement (mass/volume)Ordered By: Corazon Wright on 05-11-2024 Calcium [Mass/Vol] 8.6 mg/dL 7.6-11.0 [facility] Serum or plasma urea nitroge n measurement (mass/volume)Ordered By: Corazon Wright on 05-11-2024 Urea nitrogen [Mass/Vol] 34 mg/dL High 4-19 [facility] Sodium levelOrdered By: Corazon Wright on 05-11-2024 Sodium [Moles/Vol] 137 mmol/L 133-145 [facility] White blood cell (WBC) count Ordered By: Corazon Wright on 05-11-2024 WBC (Bld) [#/Vol] 9.9 10*3/uL 4.4-11.0 [facility] Bilirubin Test strip Ql (U)O rdered By: Mariano Chan on 05-10-2024 Bilirubin Ql (U) Negative Negative [facility] Cerv Spine 2 or 3 Viewson Cerv Spine 2 or 3 Views Normal [facility] Epithelial cells.squamous LM Ql (Urine sed)Ordered By: Mariano Chan on 05-10-2024 Epithelial cells.squamous LM.HPF (Urine sed) [#/Area] 0 /[HPF] 0-5 [facility] Glucose Ql (U)Ordered By: Fabian Chan on 05-10-2024 Urine Glucose (UA) Normal mg/dl Normal [facility] Ketones Test strip Ql (U)Ord ered By: Mariano Chan on 05-10-2024 Ketones Ql (U) Negative Negative [facility] Microscopic analysis of urin e for red blood cells (RBC)Ordered By: Mariano Chan on 05-10-2024 Urine RBC 10-25 SEEN /hpf 0-5 [facility] Mucus LM Ql (Urine sed)Order ed By: Mariano Chan on 05-10-2024 Mucus Ql (Urine sed) 0 SEEN /hpf [facility] Nitrite Test strip Ql (U)Ord ered By: Mariano Chan on 05-10-2024 Nitrite Ql (U) Positive High Negative [facility] Protein Test strip Ql (U)Ord ered By: Mariano Chan on 05-10-2024 Protein Ql (U) 500 mg/dl High Negative [facility] Squamous epithelial cells de tection in urine sediment by light microscopyOrdered By: Mariano Chan on 05-10-2024 Epithelial cells.squamous LM Ql (Urine sed) 0 SEEN /hpf 0-5 [facility] Urinalysis, Completeon 05-10 BACTERIA 2+ /hpf Normal None Seen [facility] Comment on above: Order Comment: YOSVANY TER SPECIMEN Performed By: #### L 400.0001, ####[facility] [address] [place], [address] RBC 10-25 SEEN Normal 0-5 [facility] Comment on above: Order Comment: YOSVANY TER SPECIMEN Performed By: #### L 400.0001, ####[facility] [address] [place], [address] WBC 25-50 SEEN Normal 0-5 [facility] Comment on above: Order Comment: YOSVANY TER SPECIMEN Performed By: #### L 400.0001, ####[facility] [address] [place], [address] EPI,SQUAMOUS 0 SEEN Normal 0-5 [facility] Comment on above: Order Comment: YOSVANY TER SPECIMEN Performed By: #### L 400.0001, ####[facility] [address] [place], [address] Mucus Ql (Urine sed) 0 SEEN Normal [facility] Comment on above: Order Comment: YOSVANY TER SPECIMEN Performed By: #### L 400.0001, M100.2200 ####[facility] [address] [place], [address] Urine blood detectionOrdered By: Mariano Chan on 05-10-2024 Urine Occult Blood 250 /ul High Negative [facility] Urine clarityOrdered By: Mariano Chan on 05-10-2024 Clarity (U) Sl. Cloudy Clear [facility] Urine color determinationOrd ered By: Mariano Chan on 05-10-2024 Color (U) Yellow Yellow [facility] Urine cultureOrdered By: Mariano Chan on 05-10-2024 Bacteria identified Cx Nom (U) Enterobacter cloacae complex Abnormal [facility] Urine glucose detectionOrder ed By: Mariano Chan on 05-10-2024 Glucose Ql (U) Normal mg/dl Normal [facility] Urine leukocyte esterase det ection by dipstickOrdered By: Mariano Chan on 05-10-2024 Leukocyte esterase Test strip Ql (U) 500 /ul High Negative [facility] Urine pHOrdered By: Mariano Chan on 05-10-2024 pH (U) 6.0 [pH] 5.0 - 8.0 [facility] Urine sediment bacteria coun t by microscopy (number/high power field)Ordered By: Mariano Chan on 05-10-2024 Bacteria LM.HPF (Urine sed) [#/Area] 2 /[HPF] None Seen [facility] Urine specific gravity measu rementOrdered By: Mariano Chan on 05-10-2024 Specific gravity (U) [Rel density] 1.015 1.002-1.030 [facility] Urine urobilinogen measureme ntOrdered By: Mariano Chan on 05-10-2024 Urobilinogen Ql (U) Normal mg/dl Normal [facility] Urobilinogen Ql (U)Ordered B y: Mariano Chan on 05-10-2024 Urine Urobilinogen Normal mg/dl Normal [facility] White blood cell countOrdere d By: Mariano Chan on 05-10-2024 Urine WBC 25-50 SEEN /hpf 0-5 [facility] White blood cell count 25-50 SEEN /hpf 0-5 [facility] Modified Barium Swallow Stud yon 05-09-2024 Modified Barium Swallow Study Normal [facility] Basic Metabolic Profile (BMP )on 05-04-2024 BUN/CRE 18.0 RATIO Normal 10-20 [facility] Comment on above: Performed By: #### L 500.2500 ####[facility] [address] [place], [address] Calcium [Mass/Vol] 8.2 mg/dL Normal 7.6-11.0 [facility] Comment on above: Performed By: #### L 500.2500 ####[facility] [address] [place], [address] Chloride [Moles/Vol] 111 mmol/L High 98-108 [facility] Comment on above: Performed By: #### L 500.2500 ####[facility] [address] [place], [address] CO2 [Moles/Vol] 21.7 mmol/L Normal 21.0-32.0 [facility] Comment on above: Performed By: #### L 500.2500 ####[facility] [address] [place], [address] Creatinine [Mass/Vol] 0.73 mg/dL Normal 0.70-1.20 [facility] Comment on above: Performed By: #### L 500.2500 ####[facility] [address] [place], [address] ECRCL 68.88 ml/min Normal 50-250 [facility] Comment on above: Performed By: #### L 500.2500 ####[facility] [address] [place], [address] GAP 8 Normal 5-15 [facility] Comment on above: Performed By: #### L 500.2500 ####[facility] [address] [place], [address] GFR/1.73 sq M.predicted among non-blacks MDRD (S/P/Bld) [Vol rate/Area] 91 mL/min/{1.73_m2} Normal >60 [facility] Comment on above: Result Comment: mL/m in/1.73m2 CKD-EPI Creatinine Equation (2020) Performed By: #### L 500.2500 ####[facility] [address] [place], [address] Glucose [Mass/Vol] 99 mg/dL Normal 70-99 [facility] Comment on above: Performed By: #### L 500.2500 ####[facility] [address] [place], [address] Potassium [Moles/Vol] 4.2 mmol/L Normal 3.3-5.1 [facility] Comment on above: Performed By: #### L 500.2500 ####[facility] [address] [place], [address] Sodium [Moles/Vol] 140 mmol/L Normal 133-145 [facility] Comment on above: Performed By: #### L 500.2500 ####[facility] [address] [place], [address] Urea nitrogen [Mass/Vol] 13 mg/dL Normal 4-19 [facility] Comment on above: Performed By: #### L 500.2500 ####[facility] [address] [place], [address] HH, Hemoglobin AND Hematocri ton 05-04-2024 Hematocrit (Bld) [Volume fraction] 37.1 % Low 40-54 [facility] Comment on above: Performed By: #### L 100.0600 ####[facility] [address] [place], [address] Hemoglobin (Bld) [Mass/Vol] 12.5 g/dL Low 13.0-16.5 [facility] Comment on above: Performed By: #### L 100.0600 ####[facility] [address] [place], [address] HH, Hemoglobin AND Hematocri ton 05-03-2024 Hematocrit (Bld) [Volume fraction] 38.8 % Low 40-54 [facility] Comment on above: Performed By: #### L 100.0600 ####[facility] [address] [place], [address] Hemoglobin (Bld) [Mass/Vol] 12.9 g/dL Low 13.0-16.5 [facility] Comment on above: Performed By: #### L 100.0600 ####[facility] [address] [place], [address] SP/SP.FEESon 05-02-2024 SP/SP.FEES Normal [facility] Basic Metabolic Profile (BMP )on 05-01-2024 BUN/CRE 21.7 RATIO High 10-20 [facility] Comment on above: Performed By: #### L 500.2500, L501.2300, L100.0500 ####[facility] [address] [place], [address] Calcium [Mass/Vol] 8.1 mg/dL Normal 7.6-11.0 [facility] Comment on above: Performed By: #### L 500.2500, L501.2300, L100.0500 ####[facility] [address] [place], [address] Chloride [Moles/Vol] 109 mmol/L High 98-108 [facility] Comment on above: Performed By: #### L 500.2500, L501.2300, L100.0500 ####[facility] [address] [place], [address] CO2 [Moles/Vol] 23.7 mmol/L Normal 21.0-32.0 [facility] Comment on above: Performed By: #### L 500.2500, L501.2300, L100.0500 ####[facility] [address] [place], [address] Creatinine [Mass/Vol] 0.74 mg/dL Normal 0.70-1.20 [facility] Comment on above: Performed By: #### L 500.2500, L501.2300, L100.0500 ####[facility] [address] [place], [address] ECRCL 68.88 ml/min Normal 50-250 [facility] Comment on above: Performed By: #### L 500.2500, L501.2300, L100.0500 ####[facility] [address] [place], [address] GAP 8 Normal 5-15 [facility] Comment on above: Performed By: #### L 500.2500, L501.2300, L100.0500 ####[facility] [address] [place], [address] GFR/1.73 sq M.predicted among non-blacks MDRD (S/P/Bld) [Vol rate/Area] 91 mL/min/{1.73_m2} Normal >60 [facility] Comment on above: Result Comment: mL/m in/1.73m2 CKD-EPI Creatinine Equation (2020) Performed By: #### L 500.2500, L501.2300, L100.0500 ####[facility] [address] [place], [address] Glucose [Mass/Vol] 99 mg/dL Normal 70-99 [facility] Comment on above: Performed By: #### L 500.2500, L501.2300, L100.0500 ####[facility] [address] [place], [address] Potassium [Moles/Vol] 4.5 mmol/L Normal 3.3-5.1 [facility] Comment on above: Performed By: #### L 500.2500, L501.2300, L100.0500 ####[facility] [address] [place], [address] Sodium [Moles/Vol] 141 mmol/L Normal 133-145 [facility] Comment on above: Performed By: #### L 500.2500, L501.2300, L100.0500 ####[facility] [address] [place], [address] Urea nitrogen [Mass/Vol] 16 mg/dL Normal 4-19 [facility] Comment on above: Performed By: #### L 500.2500, L501.2300, L100.0500 ####[facility] [address] [place], [address] CBC-Complete Blood Cnt No Di ffon 05-01-2024 Erythrocyte distribution width (RBC) [Ratio] 12.8 % Normal 11.6-14.6 [facility] Comment on above: Performed By: #### L 500.2500, L501.2300, L100.0500 ####[facility] [address] [place], [address] Hematocrit (Bld) [Volume fraction] 35.2 % Low 40-54 [facility] Comment on above: Performed By: #### L 500.2500, L501.2300, L100.0500 ####[facility] [address] [place], [address] Hemoglobin (Bld) [Mass/Vol] 11.9 g/dL Low 13.0-16.5 [facility] Comment on above: Performed By: #### L 500.2500, L501.2300, L100.0500 ####[facility] [address] [place], [address] MCH (RBC) [Entitic mass] 30.2 pg Normal 27.0-32.0 [facility] Comment on above: Performed By: #### L 500.2500, L501.2300, L100.0500 ####[facility] [address] [place], [address] MCHC (RBC) [Mass/Vol] 33.8 g/dL Normal 32-36 [facility] Comment on above: Performed By: #### L 500.2500, L501.2300, L100.0500 ####[facility] [address] [place], [address] MCV (RBC) [Entitic vol] 89.3 fL Normal 80-94 [facility] Comment on above: Performed By: #### L 500.2500, L501.2300, L100.0500 ####[facility] [address] [place], [address] Platelet mean volume (Bld) [Entitic vol] 8.6 fL Normal 6.2-12.0 [facility] Comment on above: Performed By: #### L 500.2500, L501.2300, L100.0500 ####[facility] [address] [place], [address] Platelets (Bld) [#/Vol] 149 10*3/uL Low 150-450 [facility] Comment on above: Performed By: #### L 500.2500, L501.2300, L100.0500 ####[facility] [address] [place], [address] RBC (Bld) [#/Vol] 3.94 10*6/uL Low 4.6-6.2 [facility] Comment on above: Performed By: #### L 500.2500, L501.2300, L100.0500 ####[facility] [address] [place], [address] RDW SD 41.9 fl Normal 35.1-43.9 [facility] Comment on above: Performed By: #### L 500.2500, L501.2300, L100.0500 ####[facility] [address] [place], [address] WBC (Bld) [#/Vol] 8.4 10*3/uL Normal 4.4-11.0 [facility] Comment on above: Performed By: #### L 500.2500, L501.2300, L100.0500 ####[facility] [address] [place], [address] Electrocardiogram reportOrde red By: David Granados on 05-01-2024 EKG study [facility] [address] [place] [address] 12 Lead EKG 04/30/24 1706 MR#: [id number] Acct: [id number] Name: YAS ROSA Rep #:[id number] : 1940 83 From: aDvid Granados MD Attending Dr: Dr. Corazon Wright [...] found Confirmed by DAVID GRANADOS MD ([id number]), make up editor LEANDER BRAY ([id number]) on :48:33 AM Referred By: Corazon Wright Confirmed By: DAVID GRANADOS MD 05/01/24 0948 Date _ David Granados MD CC: Dr. Kwabena Menjivar MD; Dr. Corazon Wright, DO ~ Signed [facility] Work Phone: Phosphoruson 05-01-2024 Phosphate [Mass/Vol] 3.3 mg/dL Normal 2.7-4.5 [facility] Comment on above: Performed By: #### L 500.2500, L501.2300, L100.0500 ####[facility] [address] [place], [address] Serum phosphorus measurement Ordered By: Corazon Wright on 05-01-2024 Phosphorus Level 3.3 mg/dL 2.7-4.5 [facility] 12 Lead EKGon 04-30-2024 12 Lead EKG Normal [facility] CBC-Complete Blood Cnt No Di ffon 04-29-2024 HCT Normal 40-54 [facility] Comment on above: Result Comment: Canc elled via OM: MD Ordered Performed By: #### L 100.0500 ####[facility] [address] [place], [address] HGB Normal 13.0-16.5 [facility] Comment on above: Result Comment: Canc elled via OM: MD Ordered Performed By: #### L 100.0500 ####[facility] [address] [place], [address] MCH Normal 27.0-32.0 [facility] Comment on above: Result Comment: Canc elled via OM: MD Ordered Performed By: #### L 100.0500 ####[facility] [address] [place], [address] MCHC Normal 32-36 [facility] Comment on above: Result Comment: Canc elled via OM: MD Ordered Performed By: #### L 100.0500 ####[facility] [address] [place], [address] MCV Normal 80-94 [facility] Comment on above: Result Comment: Canc elled via OM: MD Ordered Performed By: #### L 100.0500 ####[facility] [address] [place], [address] PLT Normal 150-450 [facility] Comment on above: Result Comment: Canc elled via OM: MD Ordered Performed By: #### L 100.0500 ####[facility] [address] [place], [address] RBC Normal 4.6-6.2 [facility] Comment on above: Result Comment: Canc elled via OM: MD Ordered Performed By: #### L 100.0500 ####[facility] [address] [place], [address] RDW CV Normal 11.6-14.6 [facility] Comment on above: Result Comment: Canc elled via OM: MD Ordered Performed By: #### L 100.0500 ####[facility] [address] [place], [address] RDW SD Normal 35.1-43.9 [facility] Comment on above: Result Comment: Canc elled via OM: MD Ordered Performed By: #### L 100.0500 ####[facility] [address] [place], [address] WBC Normal 4.4-11.0 [facility] Comment on above: Result Comment: Canc elled via OM: MD Ordered Performed By: #### L 100.0500 ####[facility] [address] [place], [address] L509.6001on 04-29-2024 CORTISOL 25.80 ug/dL High 6.02-18.40 [facility] Comment on above: Order Comment: Must be drawn 30-60 min AFTER cosyntropin admin. Performed By: #### L 509.6001 ####[facility] [address] [place], [address] CORTISOL 11.10 ug/dL Normal 6.02-18.40 [facility] Comment on above: Order Comment: must be performed shortly BEFORE cosyntropin admin Performed By: #### L 509.6001 ####[facility] [address] [place], [address] Lower GI hemoglobin IA Ql (S tl)Ordered By: Corazon Wright on 04-29-2024 Stool Occult Blood (JERMAINE) [facility] No Panel InformationOrdered By: Corazon Wright on 04-29-2024 Cortisol AM Sample 25.80 ug/dL High 6.02-18.40 [facility] 25.80 ug/dL High 6.02-18.40 [facility] Stool Occult Blood iFOBon STOB Negative Normal [facility] Comment on above: Performed By: #### M 100.7900 ####[facility] [address] [place], [address] Stool gastrointestinal hemog lobin detection by immunologic methodOrdered By: Corazon Wrgiht on 04-29-2024 Lower GI hemoglobin IA Ql (Stl) [facility] Urine Cultureon 04-29-2024 URC Culture exhibits no growth. Normal [facility] Comment on above: Performed By: #### M 100.2200 ####[facility] [address] [place], [address] Basic Metabolic Profile (BMP )on 04-28-2024 BUN/CRE 30.3 RATIO High 10-20 [facility] Comment on above: Performed By: #### L 501.5200, L501.2300, L100.0500, L500.2500 ####[facility] [address] [place], [address] Calcium [Mass/Vol] 8.0 mg/dL Normal 7.6-11.0 [facility] Comment on above: Performed By: #### L 501.5200, L501.2300, L100.0500, L500.2500 ####[facility] [address] [place], [address] Chloride [Moles/Vol] 106 mmol/L Normal 98-108 [facility] Comment on above: Performed By: #### L 501.5200, L501.2300, L100.0500, L500.2500 ####[facility] [address] [place], [address] CO2 [Moles/Vol] 22.8 mmol/L Normal 21.0-32.0 [facility] Comment on above: Performed By: #### L 501.5200, L501.2300, L100.0500, L500.2500 ####[facility] [address] [place], [address] Creatinine [Mass/Vol] 0.89 mg/dL Normal 0.70-1.20 [facility] Comment on above: Performed By: #### L 501.5200, L501.2300, L100.0500, L500.2500 ####[facility] [address] [place], [address] ECRCL 61.91 ml/min Normal 50-250 [facility] Comment on above: Performed By: #### L 501.5200, L501.2300, L100.0500, L500.2500 ####[facility] [address] [place], [address] GAP 8 Normal 5-15 [facility] Comment on above: Performed By: #### L 501.5200, L501.2300, L100.0500, L500.2500 ####[facility] [address] [place], [address] GFR/1.73 sq M.predicted among non-blacks MDRD (S/P/Bld) [Vol rate/Area] 86 mL/min/{1.73_m2} Normal >60 [facility] Comment on above: Result Comment: mL/m in/1.73m2 CKD-EPI Creatinine Equation (2020) Performed By: #### L 501.5200, L501.2300, L100.0500, L500.2500 ####[facility] [address] [place], [address] Glucose [Mass/Vol] 91 mg/dL Normal 70-99 [facility] Comment on above: Performed By: #### L 501.5200, L501.2300, L100.0500, L500.2500 ####[facility] [address] [place], [address] Potassium [Moles/Vol] 4.6 mmol/L Normal 3.3-5.1 [facility] Comment on above: Performed By: #### L 501.5200, L501.2300, L100.0500, L500.2500 ####[facility] [address] [place], [address] Sodium [Moles/Vol] 137 mmol/L Normal 133-145 [facility] Comment on above: Performed By: #### L 501.5200, L501.2300, L100.0500, L500.2500 ####[facility] [address] [place], [address] Urea nitrogen [Mass/Vol] 27 mg/dL High 4-19 [facility] Comment on above: Performed By: #### L 501.5200, L501.2300, L100.0500, L500.2500 ####[facility] [address] [place], [address] BUN Normal - [facility] Comment on above: Result Comment: Canc elled via OM: Order cancelled - Patient discharged Performed By: #### L 500.2500 ####[facility] [address] [place], [address] BUN/CRE Normal 10-20 [facility] Comment on above: Result Comment: Canc elled via OM: Order cancelled - Patient discharged Performed By: #### L 500.2500 ####[facility] [address] [place], [address] Calcium Normal 7.6-11.0 [facility] Comment on above: Result Comment: Canc elled via OM: Order cancelled - Patient discharged Performed By: #### L 500.2500 ####[facility] [address] [place], [address] CL Normal 98-108 [facility] Comment on above: Result Comment: Canc elled via OM: Order cancelled - Patient discharged Performed By: #### L 500.2500 ####[facility] [address] [place], [address] CO2 Normal 21.0-32.0 [facility] Comment on above: Result Comment: Canc elled via OM: Order cancelled - Patient discharged Performed By: #### L 500.2500 ####[facility] [address] [place], [address] CREAT,SERUM Normal 0.70-1.20 [facility] Comment on above: Result Comment: Canc elled via OM: Order cancelled - Patient discharged Performed By: #### L 500.2500 ####[facility] [address] [place], [address] eGFR Normal >60 [facility] Comment on above: Result Comment: Canc elled via OM: Order cancelled - Patient discharged Performed By: #### L 500.2500 ####[facility] [address] [place], [address] GAP Normal 5-15 [facility] Comment on above: Result Comment: Canc elled via OM: Order cancelled - Patient discharged Performed By: #### L 500.2500 ####[facility] [address] [place], [address] GLU Normal 70-99 [facility] Comment on above: Result Comment: Canc elled via OM: Order cancelled - Patient discharged Performed By: #### L 500.2500 ####[facility] [address] [place], [address] Potassium Normal 3.3-5.1 [facility] Comment on above: Result Comment: Canc elled via OM: Order cancelled - Patient discharged Performed By: #### L 500.2500 ####[facility] [address] [place], [address] Basic Metabolic Profile (BMP) Normal 133-145 [facility] Comment on above: Result Comment: Canc elled via OM: Order cancelled - Patient discharged Performed By: #### L 500.2500 ####[facility] [address] [place], [address] Bilirubin directOrdered By: Corazon Romogavin on 04-28-2024 Bilirubin.direct [Mass/Vol] 0.18 mg/dL 0.00-0.30 [facility] Bilirubin, totalOrdered By: Corazon Romogavin on 04-28-2024 Bilirubin [Mass/Vol] 0.37 mg/dL 0.00-1.30 [facility] CBC W/Diff, Automatedon 03-2 Absolute Neut Normal 2.0-7.7 [facility] Comment on above: Result Comment: Canc elled via OM: Order cancelled - Patient discharged Performed By: #### L 100.0100 ####[facility] [address] [place], [address] HCT Normal 40-54 [facility] Comment on above: Result Comment: Canc elled via OM: Order cancelled - Patient discharged Performed By: #### L 100.0100 ####[facility] [address] [place], [address] HGB Normal 13.0-16.5 [facility] Comment on above: Result Comment: Canc elled via OM: Order cancelled - Patient discharged Performed By: #### L 100.0100 ####[facility] [address] [place], [address] MCH Normal 27.0-32.0 [facility] Comment on above: Result Comment: Canc elled via OM: Order cancelled - Patient discharged Performed By: #### L 100.0100 ####[facility] [address] [place], [address] MCHC Normal 32-36 [facility] Comment on above: Result Comment: Canc elled via OM: Order cancelled - Patient discharged Performed By: #### L 100.0100 ####[facility] [address] [place], [address] MCV Normal 80-94 [facility] Comment on above: Result Comment: Canc elled via OM: Order cancelled - Patient discharged Performed By: #### L 100.0100 ####[facility] [address] [place], [address] NEUT% Normal 47-70 [facility] Comment on above: Result Comment: Canc elled via OM: Order cancelled - Patient discharged Performed By: #### L 100.0100 ####[facility] [address] [place], [address] PLT Normal 150-450 [facility] Comment on above: Result Comment: Canc elled via OM: Order cancelled - Patient discharged Performed By: #### L 100.0100 ####[facility] [address] [place], [address] RBC Normal 4.6-6.2 [facility] Comment on above: Result Comment: Canc elled via OM: Order cancelled - Patient discharged Performed By: #### L 100.0100 ####[facility] [address] [place], [address] RDW CV Normal 11.6-14.6 [facility] Comment on above: Result Comment: Canc elled via OM: Order cancelled - Patient discharged Performed By: #### L 100.0100 ####[facility] [address] [place], [address] RDW SD Normal 35.1-43.9 [facility] Comment on above: Result Comment: Canc elled via OM: Order cancelled - Patient discharged Performed By: #### L 100.0100 ####[facility] [address] [place], [address] WBC Normal 4.4-11.0 [facility] Comment on above: Result Comment: Canc elled via OM: Order cancelled - Patient discharged Performed By: #### L 100.0100 ####[facility] [address] [place], [address] CBC-Complete Blood Cnt No Di ffon 04-28-2024 Erythrocyte distribution width (RBC) [Ratio] 12.7 % Normal 11.6-14.6 [facility] Comment on above: Performed By: #### L 501.5200, L501.2300, L100.0500, L500.2500 ####[facility] [address] [place], [address] Hematocrit (Bld) [Volume fraction] 35.3 % Low 40-54 [facility] Comment on above: Performed By: #### L 501.5200, L501.2300, L100.0500, L500.2500 ####[facility] [address] [place], [address] Hemoglobin (Bld) [Mass/Vol] 12.4 g/dL Low 13.0-16.5 [facility] Comment on above: Performed By: #### L 501.5200, L501.2300, L100.0500, L500.2500 ####[facility] [address] [place], [address] MCH (RBC) [Entitic mass] 30.6 pg Normal 27.0-32.0 [facility] Comment on above: Performed By: #### L 501.5200, L501.2300, L100.0500, L500.2500 ####[facility] [address] [place], [address] MCHC (RBC) [Mass/Vol] 35.1 g/dL Normal 32-36 [facility] Comment on above: Performed By: #### L 501.5200, L501.2300, L100.0500, L500.2500 ####[facility] [address] [place], [address] MCV (RBC) [Entitic vol] 87.2 fL Normal 80-94 [facility] Comment on above: Performed By: #### L 501.5200, L501.2300, L100.0500, L500.2500 ####[facility] [address] [place], [address] Platelet mean volume (Bld) [Entitic vol] 8.8 fL Normal 6.2-12.0 [facility] Comment on above: Performed By: #### L 501.5200, L501.2300, L100.0500, L500.2500 ####[facility] [address] [place], [address] Platelets (Bld) [#/Vol] 164 10*3/uL Normal 150-450 [facility] Comment on above: Performed By: #### L 501.5200, L501.2300, L100.0500, L500.2500 ####[facility] [address] [place], [address] RBC (Bld) [#/Vol] 4.05 10*6/uL Low 4.6-6.2 [facility] Comment on above: Performed By: #### L 501.5200, L501.2300, L100.0500, L500.2500 ####[facility] [address] [place], [address] RDW SD 40.3 fl Normal 35.1-43.9 [facility] Comment on above: Performed By: #### L 501.5200, L501.2300, L100.0500, L500.2500 ####[facility] [address] [place], [address] WBC (Bld) [#/Vol] 11.3 10*3/uL High 4.4-11.0 [facility] Comment on above: Performed By: #### L 501.5200, L501.2300, L100.0500, L500.2500 ####[facility] [address] [place], [address] L509.6001on 04-28-2024 CORTISOL 3.92 ug/dL Low 6.02-18.40 [facility] Comment on above: Order Comment: eCcelia snyder use the blood drawn this AM Performed By: #### L 509.6001 ####[facility] [address] [place], [address] Laboratory - Chemistry and C hemistry - challengeOrdered By: Corazon Wright on 04-28-2024 AST [Catalytic activity/Vol] 25 U/L <38 [facility] Liver Profileon 04-28-2024 Albumin [Mass/Vol] 3.1 g/dL Low 3.4-4.8 [facility] Comment on above: Performed By: #### L 501.9520, L500.3400 ####[facility] [address] [place], [address] ALK PHOS 70 U/L Normal 40-129 [facility] Comment on above: Performed By: #### L 501.9520, L500.3400 ####[facility] [address] [place], [address] ALT [Catalytic activity/Vol] 44 U/L Normal <=46 [facility] Comment on above: Performed By: #### L 501.9520, L500.3400 ####[facility] [address] [place], [address] AST [Catalytic activity/Vol] 25 U/L Normal <=37 [facility] Comment on above: Performed By: #### L 501.9520, L500.3400 ####[facility] [address] [place], [address] Bilirubin [Mass/Vol] 0.37 mg/dL Normal 0.00-1.30 [facility] Comment on above: Performed By: #### L 501.9520, L500.3400 ####[facility] [address] [place], [address] Bilirubin.direct [Mass/Vol] 0.18 mg/dL Normal 0.00-0.30 [facility] Comment on above: Performed By: #### L 501.9520, L500.3400 ####[facility] [address] [place], [address] Globulin (S) [Mass/Vol] 2.0 g/dL Low 2.2-4.[address] [facility] Comment on above: Performed By: #### L 501.9520, L500.3400 ####[facility] [address] [place], [address] T PROT 5.1 g/dL Low 5.9-8.4 [facility] Comment on above: Performed By: #### L 501.9520, L500.3400 ####[facility] [address] [place], [address] Magnesiumon 04-28-2024 Magnesium [Mass/Vol] 2.6 mg/dL High 1.5-2.2 [facility] Comment on above: Performed By: #### L 501.5200, L501.2300, L100.0500, L500.2500 ####[facility] [address] [place], [address] Magnesium (Unsp spec) [Mass/ Vol]Ordered By: Corazon Wright on 04-28-2024 Magnesium [Mass/Vol] 2.6 mg/dL High 1.5-2.2 [facility] Magnesium measurement (mass/ volume)Ordered By: Corazon Wright on 04-28-2024 Magnesium (Unsp spec) [Mass/Vol] 2.6 mg/dL High 1.5-2.2 [facility] No Panel InformationOrdered By: Corazon Wright on 04-28-2024 25 U/L <38 [facility] PSA, total screeningOrdered By: Corazon Wright on 04-28-2024 Prostate Specific Antigen Screen 0.33 ng/mL 0.02-4.00 [facility] Comment on above: This test [...] 04-28-2024 PSA,TOT SCREEN 0.33 ng/mL Normal 0.02-4.00 [facility] Comment on above: Result Comment: This test was performed using the [employer] tPSAmethod. Measured values of a patient??sample can varydepending on the testing procedure used. PSA valuesdetermined on patient samples by different testingprocedures cannot be used interchangeably. If there is achange in PSA assays while monitoring therapy, sequentialtesting should be performed to confirm baseline values. Performed By: #### L 501.9910 ####[facility] [address] [place], [address] Phosphoruson 04-28-2024 Phosphate [Mass/Vol] 2.4 mg/dL Low 2.7-4.5 [facility] Comment on above: Performed By: #### L 501.5200, L501.2300, L100.0500, L500.2500 ####[facility] [address] [place], [place], [address] Serum globulin measurementOr dered By: Corazon Kyle on 04-28-2024 Globulin (S) [Mass/Vol] 2.0 g/dL Low 2.2-4.[address] [facility] Serum or plasma alanine olmedo otransferase (ALT) measurementOrdered By: Corazon Kyle on 04-28-2024 ALT [Catalytic activity/Vol] 44 U/L <47 [facility] Serum or plasma albumin ratna urement (mass/volume)Ordered By: Corazon Kyle on 04-28-2024 Albumin [Mass/Vol] 3.1 g/dL Low 3.4-4.8 [facility] Serum or plasma alkaline garry sphatase measurementOrdered By: Corazon Kyle on 04-28-2024 ALP [Catalytic activity/Vol] 70 U/L 40-129 [facility] TSH DL <= 0.005 mIU/L QnOrde red By: Corazon Kyle on 04-28-2024 Thyroid Stimulating Hormone (TSH) 1.030 uIU/mL 0.300-4.200 [facility] TSH Qn 1.030 uIU/mL 0.300-4.200 [facility] Thyroid Stim Hormone (TSH)on 04-28-2024 TSH 1.030 uIU/mL Normal 0.300-4.200 [facility] Comment on above: Performed By: #### L 501.9520, L500.3400 ####[facility] [address] [place], [place], [id number] Total proteinOrdered By: Aura saman Wright on 04-28-2024 Protein [Mass/Vol] 5.1 g/dL Low 5.9-8.4 [facility] Urinalysis, Completeon 04-28 RBC 0 SEEN Normal 0-5 [facility] Comment on above: Order Comment: YOSVANY [place] SPECIMEN Performed By: #### L 400.0001 ####[facility] [address] [place], [address] Absolute lymphocyte countOrd ered By: Harish Baxter on 04-27-2024 Lymphocytes Auto (Unsp spec) [#/Vol] 1.59 10*3/uL 0.83-4.51 [facility] Absolute neutrophil countOrd ered By: Harish Baxter on 04-27-2024 Neutrophils (Bld) [#/Vol] 8.8 10*3/uL High 2.0-7.7 [facility] Anion gap in Serum or Plasma Ordered By: Harish Baxter on 04-27-2024 Anion gap [Moles/Vol] 12 mmol/L 5-15 [facility] Automated lymphocyte count a s percentage of total leukocytesOrdered By: Harish Baxter on 04-27-2024 Lymphocytes/100 WBC Auto (Unsp spec) 14.3 % Low 19-41 [facility] BUN/creatinine ratioOrdered By: Harish Baxter on 04-27-2024 Urea nitrogen/Creatinine [Mass ratio] 21.3 mg/mg High 10-20 [facility] Basic Metabolic Profile (BMP )on 04-27-2024 BUN/CRE 21.3 RATIO High - [facility] Comment on above: Performed By: #### L 500.2500 ####[facility] [address] [place], [address] Calcium [Mass/Vol] 8.2 mg/dL Normal 7.6-11.0 [facility] Comment on above: Performed By: #### L 500.2500 ####[facility] [address] [place], [address] Chloride [Moles/Vol] 103 mmol/L Normal 98-108 [facility] Comment on above: Performed By: #### L 500.2500 ####[facility] [address] [place], [address] CO2 [Moles/Vol] 20.1 mmol/L Low 21.0-32.0 [facility] Comment on above: Performed By: #### L 500.2500 ####[facility] [address] [place], [address] Creatinine [Mass/Vol] 0.91 mg/dL Normal 0.70-1.20 [facility] Comment on above: Performed By: #### L 500.2500 ####[facility] [address] [place], [address] ECRCL 60.55 ml/min Normal 50-250 [facility] Comment on above: Performed By: #### L 500.2500 ####[facility] [address] [place], [address] GAP 12 Normal 5-15 [facility] Comment on above: Performed By: #### L 500.2500 ####[facility] [address] [place], [address] GFR/1.73 sq M.predicted among non-blacks MDRD (S/P/Bld) [Vol rate/Area] 84 mL/min/{1.73_m2} Normal >60 [facility] Comment on above: Result Comment: mL/m in/1.73m2 CKD-EPI Creatinine Equation (2020) Performed By: #### L 500.2500 ####[facility] [address] [place], [address] Glucose [Mass/Vol] 123 mg/dL High 70-99 [facility] Comment on above: Performed By: #### L 500.2500 ####[facility] [address] [place], [address] Potassium [Moles/Vol] 4.6 mmol/L Normal 3.3-5.1 [facility] Comment on above: Performed By: #### L 500.2500 ####[facility] [address] [place], [address] Sodium [Moles/Vol] 136 mmol/L Normal 133-145 [facility] Comment on above: Performed By: #### L 500.2500 ####[facility] [address] [place], [address] Urea nitrogen [Mass/Vol] 19 mg/dL Normal 4-19 [facility] Comment on above: Performed By: #### L 500.2500 ####[facility] [address] [place], [address] BUN Normal 4-19 [facility] Comment on above: Result Comment: Canc elled via OM: MD Ordered Performed By: #### L 100.0500, L500.2500 ####[facility] [address] [place], [address] BUN/CRE Normal 10-20 [facility] Comment on above: Result Comment: Canc elled via OM: MD Ordered Performed By: #### L 100.0500, L500.2500 ####[facility] [address] [place], [address] Calcium Normal 7.6-11.0 [facility] Comment on above: Result Comment: Canc elled via OM: MD Ordered Performed By: #### L 100.0500, L500.2500 ####[facility] [address] [place], [address] CL Normal 98-108 [facility] Comment on above: Result Comment: Canc elled via OM: MD Ordered Performed By: #### L 100.0500, L500.2500 ####[facility] [address] [place], [address] CO2 Normal 21.0-32.0 [facility] Comment on above: Result Comment: Canc elled via OM: MD Ordered Performed By: #### L 100.0500, L500.2500 ####[facility] [address] [place], [address] CREAT,SERUM Normal 0.70-1.20 [facility] Comment on above: Result Comment: Canc elled via OM: MD Ordered Performed By: #### L 100.0500, L500.2500 ####[facility] [address] [place], [address] eGFR Normal >60 [facility] Comment on above: Result Comment: Canc elled via OM: MD Ordered Performed By: #### L 100.0500, L500.2500 ####[facility] [address] [place], [address] GAP Normal 5-15 [facility] Comment on above: Result Comment: Canc elled via OM: MD Ordered Performed By: #### L 100.0500, L500.2500 ####[facility] [address] [place], [address] GLU Normal 70-99 [facility] Comment on above: Result Comment: Canc elled via OM: MD Ordered Performed By: #### L 100.0500, L500.2500 ####[facility] [address] [place], [address] Potassium Normal 3.3-5.1 [facility] Comment on above: Result Comment: Canc elled via OM: MD Ordered Performed By: #### L 100.0500, L500.2500 ####[facility] [address] [place], [address] Basic Metabolic Profile (BMP) Normal 133-145 [facility] Comment on above: Result Comment: Canc elled via OM: MD Ordered Performed By: #### L 100.0500, L500.2500 ####[facility] [address] [place], [address] Basophil percentageOrdered B y: Harish Baxter on 04-27-2024 Basophils/100 WBC (Bld) 0.2 % 0-1 [facility] CBC W/Diff, Automatedon 04-09 Absolute Lymph 1.59 X10 3/uL Normal 0.83-4.51 [facility] Comment on above: Performed By: #### L 100.0100 ####[facility] [address] [place], [address] Absolute Neut 8.8 X10 3/uL High 2.0-7.7 [facility] Comment on above: Performed By: #### L 100.0100 ####[facility] [address] [place], [address] Basophils/100 WBC (Bld) 0.2 % Normal 0-1 [facility] Comment on above: Performed By: #### L 100.0100 ####[facility] [address] [place], [address] Eosinophils/100 WBC (Bld) 0.0 % Normal 0-5 [facility] Comment on above: Performed By: #### L 100.0100 ####[facility] [address] [place], [address] Erythrocyte distribution width (RBC) [Ratio] 12.3 % Normal 11.6-14.6 [facility] Comment on above: Performed By: #### L 100.0100 ####[facility] [address] [place], [address] Hematocrit (Bld) [Volume fraction] 37.9 % Low 40-54 [facility] Comment on above: Performed By: #### L 100.0100 ####[facility] [address] [place], [address] Hemoglobin (Bld) [Mass/Vol] 13.0 g/dL Normal 13.0-16.5 [facility] Comment on above: Performed By: #### L 100.0100 ####[facility] [address] [place], [address] IG% 0.900 Normal 0.0-0.9 [facility] Comment on above: Result Comment: IG% - Immature Granulocytes (promyelocytes, myelocytes andmetamyelocytes) > 1% indicates that a LEFT SHIFT is Present. Performed By: #### L 100.0100 ####[facility] [address] [place], [address] Lymphocytes/100 WBC (Bld) 14.3 % Low 19-41 [facility] Comment on above: Performed By: #### L 100.0100 ####[facility] [address] [place], [address] MCH (RBC) [Entitic mass] 30.0 pg Normal 27.0-32.0 [facility] Comment on above: Performed By: #### L 100.0100 ####[facility] [address] [place], [address] MCHC (RBC) [Mass/Vol] 34.3 g/dL Normal 32-36 [facility] Comment on above: Performed By: #### L 100.0100 ####[facility] [address] [place], [address] MCV (RBC) [Entitic vol] 87.5 fL Normal 80-[address] [facility] Comment on above: Performed By: #### L 100.0100 ####[facility] [address] [place], [address] Monocytes/100 WBC (Bld) 5.8 % Normal 0-10 [facility] Comment on above: Performed By: #### L 100.0100 ####[facility] [address] [place], [address] Neutrophils/100 WBC (Bld) 78.8 % High 47-70 [facility] Comment on above: Performed By: #### L 100.0100 ####[facility] [address] [place], [address] Nucleated RBC (Bld) [#/Vol] 0 10*3/uL Normal 0-5 [facility] Comment on above: Performed By: #### L 100.0100 ####[facility] [address] [place], [address] Platelet mean volume (Bld) [Entitic vol] 8.6 fL Normal 6.2-12.0 [facility] Comment on above: Performed By: #### L 100.0100 ####[facility] [address] [place], [address] Platelets (Bld) [#/Vol] 178 10*3/uL Normal 150-450 [facility] Comment on above: Performed By: #### L 100.0100 ####[facility] [address] [place], [address] RBC (Bld) [#/Vol] 4.33 10*6/uL Low 4.6-6.2 [facility] Comment on above: Performed By: #### L 100.0100 ####[facility] [address] [place], [address] RDW SD 39.6 fl Normal 35.1-43.9 [facility] Comment on above: Performed By: #### L 100.0100 ####[facility] [address] [place], [address] WBC (Bld) [#/Vol] 11.1 10*3/uL High 4.4-11.0 [facility] Comment on above: Performed By: #### L 100.0100 ####[facility] [address] [place], [address] CBC-Complete Blood Cnt No Di ffon 04-27-2024 HCT Normal 40-54 [facility] Comment on above: Result Comment: Canbryce elladdie via OM: Ordered Performed By: #### L 100.0500, L500.2500 ####[facility] [address] [place], [address] HGB Normal 13.0-16.5 [facility] Comment on above: Result Comment: Canc elled via OM: MD Ordered Performed By: #### L 100.0500, L500.2500 ####[facility] [address] [place], [address] MCH Normal 27.0-32.0 [facility] Comment on above: Result Comment: Canc elled via OM: MD Ordered Performed By: #### L 100.0500, L500.2500 ####[facility] [address] [place], [address] MCHC Normal 32-36 [facility] Comment on above: Result Comment: Canc elled via OM: MD Ordered Performed By: #### L 100.0500, L500.2500 ####[facility] [address] [place], [address] MCV Normal 80-94 [facility] Comment on above: Result Comment: Canc elled via OM: MD Ordered Performed By: #### L 100.0500, L500.2500 ####[facility] [address] [place], [address] PLT Normal 150-450 [facility] Comment on above: Result Comment: Canc elled via OM: MD Ordered Performed By: #### L 100.0500, L500.2500 ####[facility] [address] [place], [address] RBC Normal 4.6-6.2 [facility] Comment on above: Result Comment: Canc elled via OM: MD Ordered Performed By: #### L 100.0500, L500.2500 ####[facility] [address] [place], [address] RDW CV Normal 11.6-14.6 [facility] Comment on above: Result Comment: Canc elled via OM: MD Ordered Performed By: #### L 100.0500, L500.2500 ####[facility] [address] [place], [address] RDW SD Normal 35.1-43.9 [facility] Comment on above: Result Comment: Canc elled via OM: MD Ordered Performed By: #### L 100.0500, L500.2500 ####[facility] [address] [place], [address] WBC Normal 4.4-11.0 [facility] Comment on above: Result Comment: Canc elled via OM: MD Ordered Performed By: #### L 100.0500, L500.2500 ####[facility] [address] [place], [address] Carbon dioxide, total [Moles /volume] in Central venous bloodOrdered By: Harish Baxter on 04-27-2024 CO2 [Moles/Vol] 20.1 mmol/L Low 21.0-32.0 [facility] Cerv Spine 2 or 3 Viewson Cerv Spine 2 or 3 Views Normal [facility] Chloride assayOrdered By: Carmela Baxter on 04-27-2024 Chloride [Moles/Vol] 103 mmol/L 98-108 [facility] Discharge Instructionon 04-09 Discharge Instruction Normal [facility] Eosinophil percentageOrdered By: Harish Baxter on 04-27-2024 Eosinophils/100 WBC (Bld) 0.0 % 0-5 [facility] Erythrocyte distribution wid th ratioOrdered By: Harish Baxter on 04-27-2024 Erythrocyte distribution width (RBC) [Ratio] 12.3 % 11.6-14.6 [facility] Erythrocyte distribution wid th standard deviationOrdered By: Harish Baxter on 04-27-2024 Erythrocyte distribution width (RBC) [Entitic vol] 39.6 fL 35.1-43.9 [facility] Erythrocyte distribution width (RBC) [Ratio] 39.6 fl 35.1-43.9 [facility] Estimation of creatinine yahir aranceOrdered By: Harish Baxter on 04-27-2024 Estimated Creatinine Clearance Calc 60.55 ml/min 50-250 [facility] GFR/1.73 sq M.predicted darrick g non-blacks MDRD (S/P/Bld) [Vol rate/Area]Ordered By: Harish Baxter on 04-27-2024 Estimated GFR (MDRD) Non-Af Amer 84 >60 [facility] Comment on above: mL/min/1.73m2 CKD-EP I Creatinine Equation (2020) Glomerular filtration rate ( GFR) estimation/1.73 sq m using serum, plasma, or whole bOrdered By: Harish Baxter on 04-27-2024 GFR/1.73 sq M.predicted among non-blacks MDRD (S/P/Bld) [Vol rate/Area] 84 mL/min/{1.73_m2} >60 [facility] Hematocrit Auto (Bld) [Volum e fraction]Ordered By: Harish Baxter on 04-27-2024 Hematocrit (Bld) [Volume fraction] 37.9 % Low 40-54 [facility] Hemoglobin measurementOrdere d By: Harish Baxter on 04-27-2024 Hemoglobin (Bld) [Mass/Vol] 13.0 g/dL 13.0-16.5 [facility] Immature granulocytes/100 WB C Auto (Bld)Ordered By: Harish Baxter on 04-27-2024 Immature granulocytes/100 WBC (Bld) 0.900 % 0.0-0.9 [facility] Comment on above: IG% - Immature Granu locytes (promyelocytes, myelocytes and metamyelocytes) > 1% indicates that a LEFT SHIFT is Present. Lymphocytes Auto (Unsp spec) [#/Vol]Ordered By: Harish Baxter on 04-27-2024 Lymphocytes (Bld) [#/Vol] 1.59 10*3/uL 0.83-4.51 [facility] Lymphocytes/100 WBC Auto (Un sp spec)Ordered By: Harish Baxter on 04-27-2024 Lymphocytes/100 WBC (Bld) 14.3 % Low 19-41 [facility] MCV (mean corpuscular volume ) determinationOrdered By: Harish Baxter on 03-20-2025 MCV (RBC) [Entitic vol] 87.5 fL 80-94 [facility] Mean corpuscular hemoglobin (MCH) determinationOrdered By: Harish Baxter on 04-27-2024 MCH (RBC) [Entitic mass] 30.0 pg 27.0-32.0 [facility] Mean corpuscular hemoglobin concentration (MCHC) determinationOrdered By: Harish Baxter on 04-27-2024 MCHC (RBC) [Mass/Vol] 34.3 g/dL 32-36 [facility] Mean platelet volume determi nationOrdered By: Harish Baxter on 04-27-2024 Platelet mean volume (Bld) [Entitic vol] 8.6 fL 6.2-12.0 [facility] Monocyte percentageOrdered B y: Harish Baxter on 04-27-2024 Monocytes/100 WBC (Bld) 5.8 % 0-10 [facility] Neutrophil percentageOrdered By: Harish Baxter on 04-27-2024 Neutrophils/100 WBC (Bld) 78.8 % High 47-70 [facility] Nucleated red blood cell per centageOrdered By: Harish Baxter on 04-27-2024 Nucleated RBC/100 WBC (Bld) [Ratio] 0 % 0-5 [facility] Platelet countOrdered By: Carmela Baxter on 04-27-2024 Platelets (Bld) [#/Vol] 178 10*3/uL 150-450 [facility] Potassium (Unsp spec) [Mass/ Vol]Ordered By: Harish Baxter on 04-27-2024 Potassium [Moles/Vol] 4.6 mmol/L 3.3-5.1 [facility] Potassium measurement (mass/ volume)Ordered By: Harish Baxter on 04-27-2024 Potassium (Unsp spec) [Mass/Vol] 4.6 mmol/L 3.3-5.1 [facility] RBC Auto (Bld) [#/Vol]Ordere d By: Harish Baxter on 04-27-2024 RBC (Bld) [#/Vol] 4.33 10*6/uL Low 4.6-6.2 [facility] Serum creatinine measurement (mass/volume)Ordered By: Harish Baxter on 04-27-2024 Creatinine [Mass/Vol] 0.91 mg/dL 0.70-1.20 [facility] Serum glucose measurement (m ass/volume)Ordered By: Harish Baxter on 04-27-2024 Glucose [Mass/Vol] 123 mg/dL High 70-99 [facility] Serum or plasma calcium ratna urement (mass/volume)Ordered By: Harish Baxter on 04-27-2024 Calcium [Mass/Vol] 8.2 mg/dL 7.6-11.0 [facility] Serum or plasma urea nitroge n measurement (mass/volume)Ordered By: Harish Baxter on 04-27-2024 Urea nitrogen [Mass/Vol] 19 mg/dL 4-19 [facility] Sodium levelOrdered By: Jade Baxter on 04-27-2024 Sodium [Moles/Vol] 136 mmol/L 133-145 [facility] Urine cultureOrdered By: Aura Wright on 04-27-2024 Bacteria identified Cx Nom (U) Culture exhibits no growth. [facility] White blood cell (WBC) count Ordered By: Harish Baxter on 04-27-2024 WBC (Bld) [#/Vol] 11.1 10*3/uL High 4.4-11.0 [facility] Basic Metabolic Profile (BMP )on 04-26-2024 BUN/CRE 23.4 RATIO High 10-20 [facility] Comment on above: Performed By: #### L 100.0100, L500.2500 ####[facility] [address] [place], [address] Calcium [Mass/Vol] 8.2 mg/dL Normal 7.6-11.0 [facility] Comment on above: Performed By: #### L 100.0100, L500.2500 ####[facility] [address] [place], [address] Chloride [Moles/Vol] 107 mmol/L Normal 98-108 [facility] Comment on above: Performed By: #### L 100.0100, L500.2500 ####[facility] [address] [place], [address] CO2 [Moles/Vol] 22.8 mmol/L Normal 21.0-32.0 [facility] Comment on above: Performed By: #### L 100.0100, L500.2500 ####[facility] [address] [place], [address] Creatinine [Mass/Vol] 0.83 mg/dL Normal 0.70-1.20 [facility] Comment on above: Performed By: #### L 100.0100, L500.2500 ####[facility] [address] [place], [address] ECRCL 66.39 ml/min Normal 50-250 [facility] Comment on above: Performed By: #### L 100.0100, L500.2500 ####[facility] [address] [place], [address] GAP 6 Normal 5-15 [facility] Comment on above: Performed By: #### L 100.0100, L500.2500 ####[facility] [address] [place], [address] GFR/1.73 sq M.predicted among non-blacks MDRD (S/P/Bld) [Vol rate/Area] 87 mL/min/{1.73_m2} Normal >60 [facility] Comment on above: Result Comment: mL/m in/1.73m2 CKD-EPI Creatinine Equation (2020) Performed By: #### L 100.0100, L500.2500 ####[facility] [address] [place], [address] Glucose [Mass/Vol] 91 mg/dL Normal 70-99 [facility] Comment on above: Performed By: #### L 100.0100, L500.2500 ####[facility] [address] [place], [address] Potassium [Moles/Vol] 4.5 mmol/L Normal 3.3-5.1 [facility] Comment on above: Performed By: #### L 100.0100, L500.2500 ####[facility] [address] [place], [address] Sodium [Moles/Vol] 136 mmol/L Normal 133-145 [facility] Comment on above: Performed By: #### L 100.0100, L500.2500 ####[facility] [address] [place], [address] Urea nitrogen [Mass/Vol] 20 mg/dL High 4-19 [facility] Comment on above: Performed By: #### L 100.0100, L500.2500 ####[facility] [address] [place], [address] CBC W/Diff, Automatedon 04-08 Absolute Lymph 2.30 X10 3/uL Normal 0.83-4.51 [facility] Comment on above: Performed By: #### L 100.0100, L500.2500 ####[facility] [address] [place], [address] Absolute Neut 5.4 X10 3/uL Normal 2.0-7.7 [facility] Comment on above: Performed By: #### L 100.0100, L500.2500 ####[facility] [address] [place], [address] Basophils/100 WBC (Bld) 0.1 % Normal 0-1 [facility] Comment on above: Performed By: #### L 100.0100, L500.2500 ####[facility] [address] [place], [address] Eosinophils/100 WBC (Bld) 2.2 % Normal 0-5 [facility] Comment on above: Performed By: #### L 100.0100, L500.2500 ####[facility] [address] [place], [address] Erythrocyte distribution width (RBC) [Ratio] 12.5 % Normal 11.6-14.6 [facility] Comment on above: Performed By: #### L 100.0100, L500.2500 ####[facility] [address] [place], [address] Hematocrit (Bld) [Volume fraction] 38.8 % Low 40-54 [facility] Comment on above: Performed By: #### L 100.0100, L500.2500 ####[facility] [address] [place], [address] Hemoglobin (Bld) [Mass/Vol] 13.3 g/dL Normal 13.0-16.5 [facility] Comment on above: Performed By: #### L 100.0100, L500.2500 ####[facility] [address] [place], [address] IG% 0.700 Normal 0.0-0.9 [facility] Comment on above: Result Comment: IG% - Immature Granulocytes (promyelocytes, myelocytes andmetamyelocytes) > 1% indicates that a LEFT SHIFT is Present. Performed By: #### L 100.0100, L500.2500 ####[facility] [address] [place], [address] Lymphocytes/100 WBC (Bld) 26.4 % Normal 19-41 [facility] Comment on above: Performed By: #### L 100.0100, L500.2500 ####[facility] [address] [place], [address] MCH (RBC) [Entitic mass] 29.8 pg Normal 27.0-32.0 [facility] Comment on above: Performed By: #### L 100.0100, L500.2500 ####[facility] [address] [place], [address] MCHC (RBC) [Mass/Vol] 34.3 g/dL Normal 32-36 [facility] Comment on above: Performed By: #### L 100.0100, L500.2500 ####[facility] [address] [place], [address] MCV (RBC) [Entitic vol] 87.0 fL Normal 80-94 [facility] Comment on above: Performed By: #### L 100.0100, L500.2500 ####[facility] [address] [place], [address] Monocytes/100 WBC (Bld) 8.2 % Normal 0-[address] [facility] Comment on above: Performed By: #### L 100.0100, L500.2500 ####[facility] [address] [place], [address] Neutrophils/100 WBC (Bld) 62.4 % Normal 47-70 [facility] Comment on above: Performed By: #### L 100.0100, L500.2500 ####[facility] [address] [place], [address] Nucleated RBC (Bld) [#/Vol] 0 10*3/uL Normal 0-5 [facility] Comment on above: Performed By: #### L 100.0100, L500.2500 ####[facility] [address] [place], [address] Platelet mean volume (Bld) [Entitic vol] 8.5 fL Normal 6.2-12.0 [facility] Comment on above: Performed By: #### L 100.0100, L500.2500 ####[facility] [address] [place], [address] Platelets (Bld) [#/Vol] 168 10*3/uL Normal 150-450 [facility] Comment on above: Performed By: #### L 100.0100, L500.2500 ####[facility] [address] [place], [address] RBC (Bld) [#/Vol] 4.46 10*6/uL Low 4.6-6.2 [facility] Comment on above: Performed By: #### L 100.0100, L500.2500 ####[facility] [address] [place], [address] RDW SD 39.8 fl Normal 35.1-43.9 [facility] Comment on above: Performed By: #### L 100.0100, L500.2500 ####[facility] [address] [place], [address] WBC (Bld) [#/Vol] 8.7 10*3/uL Normal 4.4-11.0 [facility] Comment on above: Performed By: #### L 100.0100, L500.2500 ####[facility] [address] [place], [address] Cerv Spine 2 or 3 Viewson Cerv Spine 2 or [address] [facility] HH, Hemoglobin AND Hematocri ton 04-26-2024 Hematocrit (Bld) [Volume fraction] 37.7 % Low 40-54 [facility] Comment on above: Performed By: #### L 100.0600 ####[facility] [address] [place], [address] Hemoglobin (Bld) [Mass/Vol] 12.8 g/dL Low 13.0-16.5 [facility] Comment on above: Performed By: #### L 100.0600 ####[facility] [address] [place], [address] MR/POSTOP.ANEon 04-26-2024 MR/POSTOP.ANE Normal [facility] MR/POSTOP.ANE Normal [facility] MR/[id number] 04-26-2024 MR/POSTOPAN2 Normal [facility] O.R. Fluoro for C-Cr 03- O.R. Fluoro for C-Arm Normal [facility] Operative Reporton Operative Report Normal [facility] Basic Metabolic Profile (BMP )on 04-25-2024 BUN/CRE 26.7 RATIO High 10-20 [facility] Comment on above: Performed By: #### L 500.2500, L100.0100 ####[facility] [address] [place], [address] Calcium [Mass/Vol] 8.5 mg/dL Normal 7.6-11.0 [facility] Comment on above: Performed By: #### L 500.2500, L100.0100 ####[facility] [address] [place], [address] Chloride [Moles/Vol] 103 mmol/L Normal 98-108 [facility] Comment on above: Performed By: #### L 500.2500, L100.0100 ####[facility] [address] [place], [address] CO2 [Moles/Vol] 24.3 mmol/L Normal 21.0-32.0 [facility] Comment on above: Performed By: #### L 500.2500, L100.0100 ####[facility] [address] [place], [address] Creatinine [Mass/Vol] 0.90 mg/dL Normal 0.70-1.20 [facility] Comment on above: Performed By: #### L 500.2500, L100.0100 ####[facility] [address] [place], [address] ECRCL 61.22 ml/min Normal 50-250 [facility] Comment on above: Performed By: #### L 500.2500, L100.0100 ####[facility] [address] [place], [address] GAP 10 Normal 5-15 [facility] Comment on above: Performed By: #### L 500.2500, L100.0100 ####[facility] [address] [place], [address] GFR/1.73 sq M.predicted among non-blacks MDRD (S/P/Bld) [Vol rate/Area] 85 mL/min/{1.73_m2} Normal >60 [facility] Comment on above: Result Comment: mL/m in/1.73m2 CKD-EPI Creatinine Equation (2020) Performed By: #### L 500.2500, L100.0100 ####[facility] [address] [place], [address] Glucose [Mass/Vol] 90 mg/dL Normal 70-99 [facility] Comment on above: Performed By: #### L 500.2500, L100.0100 ####[facility] [address] [place], [address] Potassium [Moles/Vol] 4.2 mmol/L Normal 3.3-5.1 [facility] Comment on above: Performed By: #### L 500.2500, L100.0100 ####[facility] [address] [place], [address] Sodium [Moles/Vol] 138 mmol/L Normal 133-145 [facility] Comment on above: Performed By: #### L 500.2500, L100.0100 ####[facility] [address] [place], [address] Urea nitrogen [Mass/Vol] 24 mg/dL High 4-19 [facility] Comment on above: Performed By: #### L 500.2500, L100.0100 ####[facility] [address] [place], [address] CBC W/Diff, Automatedon 04-08 Absolute Lymph 2.98 X10 3/uL Normal 0.83-4.51 [facility] Comment on above: Performed By: #### L 500.2500, L100.0100 ####[facility] [address] [place], [address] Absolute Neut 6.0 X10 3/uL Normal 2.0-7.7 [facility] Comment on above: Performed By: #### L 500.2500, L100.0100 ####[facility] [address] [place], [address] Basophils/100 WBC (Bld) 0.1 % Normal 0-1 [facility] Comment on above: Performed By: #### L 500.2500, L100.0100 ####[facility] [address] [place], [address] Eosinophils/100 WBC (Bld) 1.3 % Normal 0-5 [facility] Comment on above: Performed By: #### L 500.2500, L100.0100 ####[facility] [address] [place], [address] Erythrocyte distribution width (RBC) [Ratio] 12.5 % Normal 11.6-14.6 [facility] Comment on above: Performed By: #### L 500.2500, L100.0100 ####[facility] [address] [place], [address] Hematocrit (Bld) [Volume fraction] 38.8 % Low 40-54 [facility] Comment on above: Performed By: #### L 500.2500, L100.0100 ####[facility] [address] [place], [address] Hemoglobin (Bld) [Mass/Vol] 13.5 g/dL Normal 13.0-16.5 [facility] Comment on above: Performed By: #### L 500.2500, L100.0100 ####[facility] [address] [place], [address] IG% 0.700 Normal 0.0-0.9 [facility] Comment on above: Result Comment: IG% - Immature Granulocytes (promyelocytes, myelocytes andmetamyelocytes) > 1% indicates that a LEFT SHIFT is Present. Performed By: #### L 500.2500, L100.0100 ####[facility] [address] [place], [address] Lymphocytes/100 WBC (Bld) 30.0 % Normal 19-41 [facility] Comment on above: Performed By: #### L 500.2500, L100.0100 ####[facility] [address] [place], [address] MCH (RBC) [Entitic mass] 29.9 pg Normal 27.0-32.0 [facility] Comment on above: Performed By: #### L 500.2500, L100.0100 ####[facility] [address] [place], [address] MCHC (RBC) [Mass/Vol] 34.8 g/dL Normal 32-36 [facility] Comment on above: Performed By: #### L 500.2500, L100.0100 ####[facility] [address] [place], [address] MCV (RBC) [Entitic vol] 86.0 fL Normal 80-94 [facility] Comment on above: Performed By: #### L 500.2500, L100.0100 ####[facility] [address] [place], [address] Monocytes/100 WBC (Bld) 7.5 % Normal 0-10 [facility] Comment on above: Performed By: #### L 500.2500, L100.0100 ####[facility] [address] [place], [address] Neutrophils/100 WBC (Bld) 60.4 % Normal 47-70 [facility] Comment on above: Performed By: #### L 500.2500, L100.0100 ####[facility] [address] [place], [address] Nucleated RBC (Bld) [#/Vol] 0 10*3/uL Normal 0-5 [facility] Comment on above: Performed By: #### L 500.2500, L100.0100 ####[facility] [address] [place], [address] Platelet mean volume (Bld) [Entitic vol] 8.5 fL Normal 6.2-12.0 [facility] Comment on above: Performed By: #### L 500.2500, L100.0100 ####[facility] [address] [place], [address] Platelets (Bld) [#/Vol] 186 10*3/uL Normal 150-450 [facility] Comment on above: Performed By: #### L 500.2500, L100.0100 ####[facility] [address] [place], [address] RBC (Bld) [#/Vol] 4.51 10*6/uL Low 4.6-6.2 [facility] Comment on above: Performed By: #### L 500.2500, L100.0100 ####[facility] [address] [place], [address] RDW SD 39.1 fl Normal 35.1-43.9 [facility] Comment on above: Performed By: #### L 500.2500, L100.0100 ####[facility] [address] [place], [address] WBC (Bld) [#/Vol] 9.9 10*3/uL Normal 4.4-11.0 [facility] Comment on above: Performed By: #### L 500.2500, L100.0100 ####[facility] [address] [place], [address] 12 Lead EKGon 04-24-2024 12 Lead EKG Normal [facility] Basic Metabolic Profile (BMP )on 04-24-2024 BUN/CRE 25.3 RATIO High 10-20 [facility] Comment on above: Order Comment: pre-o p Performed By: #### L 500.2500, L100.0100 ####[facility] [address] [place], [address] Calcium [Mass/Vol] 8.7 mg/dL Normal 7.6-11.0 [facility] Comment on above: Order Comment: pre-o p Performed By: #### L 500.2500, L100.0100 ####[facility] [address] [place], [address] Chloride [Moles/Vol] 103 mmol/L Normal 98-108 [facility] Comment on above: Order Comment: pre-o p Performed By: #### L 500.2500, L100.0100 ####[facility] [address] [place], [address] CO2 [Moles/Vol] 26.7 mmol/L Normal 21.0-32.0 [facility] Comment on above: Order Comment: pre-o p Performed By: #### L 500.2500, L100.0100 ####[facility] [address] [place], [address] Creatinine [Mass/Vol] 0.97 mg/dL Normal 0.70-1.20 [facility] Comment on above: Order Comment: pre-o p Performed By: #### L 500.2500, L100.0100 ####[facility] [address] [place], [address] ECRCL 56.80 ml/min Normal 50-250 [facility] Comment on above: Order Comment: pre-o p Performed By: #### L 500.2500, L100.0100 ####[facility] [address] [place], [address] GAP 8 Normal 5-15 [facility] Comment on above: Order Comment: pre-o p Performed By: #### L 500.2500, L100.0100 ####[facility] [address] [place], [address] GFR/1.73 sq M.predicted among non-blacks MDRD (S/P/Bld) [Vol rate/Area] 78 mL/min/{1.73_m2} Normal >60 [facility] Comment on above: Order Comment: pre-o p Result Comment: mL/m in/1.73m2 CKD-EPI Creatinine Equation (2020) Performed By: #### L 500.2500, L100.0100 ####[facility] [address] [place], [address] Glucose [Mass/Vol] 94 mg/dL Normal 70-99 [facility] Comment on above: Order Comment: pre-o p Performed By: #### L 500.2500, L100.0100 ####[facility] [address] [place], [address] Potassium [Moles/Vol] 4.2 mmol/L Normal 3.3-5.1 [facility] Comment on above: Order Comment: pre-o p Performed By: #### L 500.2500, L100.0100 ####[facility] [address] [place], [address] Sodium [Moles/Vol] 138 mmol/L Normal 133-145 [facility] Comment on above: Order Comment: pre-o p Performed By: #### L 500.2500, L100.0100 ####[facility] [address] [place], [address] Urea nitrogen [Mass/Vol] 25 mg/dL High 4-19 [facility] Comment on above: Order Comment: pre-o p Performed By: #### L 500.2500, L100.0100 ####[facility] [address] [place], [address] CBC W/Diff, Automatedon 04-08 Absolute Lymph 3.18 X10 3/uL Normal 0.83-4.51 [facility] Comment on above: Order Comment: Comme nts: pre-op Performed By: #### L 500.2500, L100.0100 ####[facility] [address] [place], [address] Absolute Neut 6.3 X10 3/uL Normal 2.0-7.7 [facility] Comment on above: Order Comment: Comme nts: pre-op Performed By: #### L 500.2500, L100.0100 ####[facility] [address] [place], [address] Basophils/100 WBC (Bld) 0.1 % Normal 0-1 [facility] Comment on above: Order Comment: Comme nts: pre-op Performed By: #### L 500.2500, L100.0100 ####[facility] [address] [place], [address] Eosinophils/100 WBC (Bld) 0.7 % Normal 0-5 [facility] Comment on above: Order Comment: Comme nts: pre-op Performed By: #### L 500.2500, L100.0100 ####[facility] [address] [place], [address] Erythrocyte distribution width (RBC) [Ratio] 12.3 % Normal 11.6-14.6 [facility] Comment on above: Order Comment: Comme nts: pre-op Performed By: #### L 500.2500, L100.0100 ####[facility] [address] [place], [address] Hematocrit (Bld) [Volume fraction] 39.7 % Low 40-54 [facility] Comment on above: Order Comment: Comme nts: pre-op Performed By: #### L 500.2500, L100.0100 ####[facility] [address] [place], [address] Hemoglobin (Bld) [Mass/Vol] 13.6 g/dL Normal 13.0-16.5 [facility] Comment on above: Order Comment: Comme nts: pre-op Performed By: #### L 500.2500, L100.0100 ####[facility] [address] [place], [address] IG% 0.500 Normal 0.0-0.9 [facility] Comment on above: Order Comment: Comme nts: pre-op Result Comment: IG% - Immature Granulocytes (promyelocytes, myelocytes andmetamyelocytes) > 1% indicates that a LEFT SHIFT is Present. Performed By: #### L 500.2500, L100.0100 ####[facility] [address] [place], [address] Lymphocytes/100 WBC (Bld) 30.5 % Normal 19-41 [facility] Comment on above: Order Comment: Comme nts: pre-op Performed By: #### L 500.2500, L100.0100 ####[facility] [address] [place], [address] MCH (RBC) [Entitic mass] 29.8 pg Normal 27.0-32.0 [facility] Comment on above: Order Comment: Comme nts: pre-op Performed By: #### L 500.2500, L100.0100 ####[facility] [address] [place], [address] MCHC (RBC) [Mass/Vol] 34.3 g/dL Normal 32-36 [facility] Comment on above: Order Comment: Comme nts: pre-op Performed By: #### L 500.2500, L100.0100 ####[facility] [address] [place], [address] MCV (RBC) [Entitic vol] 87.1 fL Normal 80-94 [facility] Comment on above: Order Comment: Comme nts: pre-op Performed By: #### L 500.2500, L100.0100 ####[facility] [address] [place], [address] Monocytes/100 WBC (Bld) 7.9 % Normal 0-10 [facility] Comment on above: Order Comment: Comme nts: pre-op Performed By: #### L 500.2500, L100.0100 ####[facility] [address] [place], [address] Neutrophils/100 WBC (Bld) 60.3 % Normal 47-70 [facility] Comment on above: Order Comment: Comme nts: pre-op Performed By: #### L 500.2500, L100.0100 ####[facility] [address] [place], [address] Nucleated RBC (Bld) [#/Vol] 0 10*3/uL Normal 0-5 [facility] Comment on above: Order Comment: Comme nts: pre-op Performed By: #### L 500.2500, L100.0100 ####[facility] [address] [place], [address] Platelet mean volume (Bld) [Entitic vol] 8.5 fL Normal 6.2-12.0 [facility] Comment on above: Order Comment: Comme nts: pre-op Performed By: #### L 500.2500, L100.0100 ####[facility] [address] [place], [address] Platelets (Bld) [#/Vol] 199 10*3/uL Normal 150-450 [facility] Comment on above: Order Comment: Comme nts: pre-op Performed By: #### L 500.2500, L100.0100 ####[facility] [address] [place], [address] RBC (Bld) [#/Vol] 4.56 10*6/uL Low 4.6-6.2 [facility] Comment on above: Order Comment: Comme nts: pre-op Performed By: #### L 500.2500, L100.0100 ####[facility] [address] [place], [address] RDW SD 39.4 fl Normal 35.1-43.9 [facility] Comment on above: Order Comment: Comme nts: pre-op Performed By: #### L 500.2500, L100.0100 ####[facility] [address] [place], [address] WBC (Bld) [#/Vol] 10.4 10*3/uL Normal 4.4-11.0 [facility] Comment on above: Order Comment: Comme nts: pre-op Performed By: #### L 500.2500, L100.0100 ####[facility] [address] [place], [address] Electrocardiogram reportOrde red By: Danette Sargent on 04-24-2024 EKG study [facility] Cardi[facility] Services [address] [place] [address] 12 Lead EKG 04/19/24 1131 MR#: [id number] Acct: [id number] Name: YAS ROSA Rep #:[id number] : 1940 83 From: Danette cartagena MD Attending Dr: Dr. Harish Baxter MD Status: ADM IN Ordering Dr: Laureano Gallaghre DO Date: 0 04/19/24 Location: U Sex: [...] ECG Confirmed by KACEY SARGENT MD ([id number]), make up editor LEANDER BRAY ([id number]) on04/24/2024 11:11:40 AM Referred By: KAYLAH Confirmed By: KACEY SARGENT MD 04/24/24 1111 Date _ Danette Sargent MD CC: Dr. Kwabena Menjivar MD; Dr. Laureano Gallagher DO; Dr. Harish Baxter MD ~ Signed [facility] Work Phone: Electrocardiogram reportOrde red By: David Granados on 04-24-2024 EKG study [facility] [address] [place] [address] 12 Lead EKG 04/24/24 0501 MR#: [id number] Acct: [id number] Name: YAS ROSA Rep #:[id number] : 1940 83 From: David Granados MD Attending Dr: Dr. Harish aBxter MD Status: ADM IN Ordering Dr: Krish Guevara MD Date: 04/24/24 Location: [facility] Sex: M C Admitted: 04/20/24 Test Reason [...] UNCONFIRMED Confirmed by DAVID GRANADOS MD ([id number]), make up editor LEANDER BRAY ([id number]) on 59:54:30 AM Referred By: Confirmed By: DAVID GRANADOS MD 04/24/24 0954 Date _ David Granados MD CC: Dr. Krish Guevara MD; Dr. Kwabena Menjivar MD; Dr. Harish Baxter MD ~ Signed [facility] Work Phone: Consultation - Orthopedicson 04-21-2024 Consultation - Orthopedics Normal [facility] CBC W/Diff, Automatedon 04-08 Absolute Lymph 2.09 X10 3/uL Normal 0.83-4.51 [facility] Comment on above: Performed By: #### L 100.0100 ####[facility] [address] [place], [address] Absolute Neut 8.7 X10 3/uL High 2.0-7.7 [facility] Comment on above: Performed By: #### L 100.0100 ####[facility] [address] [place], [address] Basophils/100 WBC (Bld) 0.1 % Normal 0-1 [facility] Comment on above: Performed By: #### L 100.0100 ####[facility] [address] [place], [address] Eosinophils/100 WBC (Bld) 0.1 % Normal 0-5 [facility] Comment on above: Performed By: #### L 100.0100 ####[facility] [address] [place], [address] Erythrocyte distribution width (RBC) [Ratio] 12.7 % Normal 11.6-14.6 [facility] Comment on above: Performed By: #### L 100.0100 ####[facility] [address] [place], [address] Hematocrit (Bld) [Volume fraction] 38.5 % Low 40-54 [facility] Comment on above: Performed By: #### L 100.0100 ####[facility] [address] [place], [address] Hemoglobin (Bld) [Mass/Vol] 13.2 g/dL Normal 13.0-16.5 [facility] Comment on above: Performed By: #### L 100.0100 ####[facility] [address] [place], [address] IG% 0.300 Normal 0.0-0.9 [facility] Comment on above: Result Comment: IG% - Immature Granulocytes (promyelocytes, myelocytes andmetamyelocytes) > 1% indicates that a LEFT SHIFT is Present. Performed By: #### L 100.0100 ####[facility] [address] [place], [address] Lymphocytes/100 WBC (Bld) 17.6 % Low 19-41 [facility] Comment on above: Performed By: #### L 100.0100 ####[facility] [address] [place], [address] MCH (RBC) [Entitic mass] 29.5 pg Normal 27.0-32.0 [facility] Comment on above: Performed By: #### L 100.0100 ####[facility] [address] [place], [address] MCHC (RBC) [Mass/Vol] 34.3 g/dL Normal 32-36 [facility] Comment on above: Performed By: #### L 100.0100 ####[facility] [address] [place], [address] MCV (RBC) [Entitic vol] 86.1 fL Normal 80-[address] [facility] Comment on above: Performed By: #### L 100.0100 ####[facility] [address] [place], [address] Monocytes/100 WBC (Bld) 8.4 % Normal 0-10 [facility] Comment on above: Performed By: #### L 100.0100 ####[facility] [address] [place], [address] Neutrophils/100 WBC (Bld) 73.5 % High 47-70 [facility] Comment on above: Performed By: #### L 100.0100 ####[facility] [address] [place], [address] Nucleated RBC (Bld) [#/Vol] 0 10*3/uL Normal 0-5 [facility] Comment on above: Performed By: #### L 100.0100 ####[facility] [address] [place], [address] Platelet mean volume (Bld) [Entitic vol] 8.9 fL Normal 6.2-12.0 [facility] Comment on above: Performed By: #### L 100.0100 ####[facility] [address] [place], [address] Platelets (Bld) [#/Vol] 216 10*3/uL Normal 150-450 [facility] Comment on above: Performed By: #### L 100.0100 ####[facility] [address] [place], [address] RBC (Bld) [#/Vol] 4.47 10*6/uL Low 4.6-6.2 [facility] Comment on above: Performed By: #### L 100.0100 ####[facility] [address] [place], [address] RDW SD 39.5 fl Normal 35.1-43.9 [facility] Comment on above: Performed By: #### L 100.0100 ####[facility] [address] [place], [address] WBC (Bld) [#/Vol] 11.9 10*3/uL High 4.4-11.0 [facility] Comment on above: Performed By: #### L 100.0100 ####[facility] [address] [place], [address] Echocardiogram study reportO rdered By: Danette Sargent on 04-20-2024 Study report [facility] Cardi[facility] Services [address] [place] [address] Echo Complete 04/19/24 1500 MR#: [id number] Acct: [id number] Name: YAS ROSA Rep #:[id number] : 1940 83 From: Danette cerrato MD Attending Dr: Dr. Keanu Alfred, Status: ADM IN Ordering Dr: Keanu Alfred DO Date: Location: [facility] Sex: M C Admitted: 04/20/24 Reason For [...] Dictated: 04/19/24 1500 Date Transcribed: 04/20/24 132 Employee Development Specialist: Signed [facility] Work Phone: 12 Lead EKGon 04-19-2024 12 Lead EKG Normal [facility] Absolute neutrophil countOrd ered By: Laureano Gallagher on 04-19-2024 Neutrophils (Bld) [#/Vol] 12.1 10*3/uL High 2.0-7.7 [facility] Activated partial thrombopla stin time (aPTT) in platelet poor plasma by coagulation aOrdered By: Laureano Gallagher on 04-19-2024 aPTT Coag (PPP) [Time] 23.4 s Low 24.1-36.2 [facility] Anion gap in Serum or Plasma Ordered By: Laureano Gallagher on 04-19-2024 Anion gap [Moles/Vol] 17 mmol/L High 5-15 [facility] BUN/creatinine ratioOrdered By: Laureano Gallagher on 04-19-2024 Urea nitrogen/Creatinine [Mass ratio] 21.7 mg/mg High - [facility] Basic Metabolic Profile (BMP )on 04-19-2024 BUN/CRE 21.7 RATIO High - [facility] Comment on above: Performed By: #### L 300.4310, L501.4021, L100.0100, L300.3900, L500.2500 ####[facility] [address] [place], [address] Calcium [Mass/Vol] 9.5 mg/dL Normal 7.6-11.0 [facility] Comment on above: Performed By: #### L 300.4310, L501.4021, L100.0100, L300.3900, L500.2500 ####[facility] [address] [place], [address] Chloride [Moles/Vol] 98 mmol/L Normal 98-108 [facility] Comment on above: Performed By: #### L 300.4310, L501.4021, L100.0100, L300.3900, L500.2500 ####[facility] [address] [place], [address] CO2 [Moles/Vol] 22.0 mmol/L Normal 21.0-32.0 [facility] Comment on above: Performed By: #### L 300.4310, L501.4021, L100.0100, L300.3900, L500.2500 ####[facility] [address] [place], [address] Creatinine [Mass/Vol] 0.92 mg/dL Normal 0.70-1.20 [facility] Comment on above: Performed By: #### L 300.4310, L501.4021, L100.0100, L300.3900, L500.2500 ####[facility] [address] [place], [address] ECRCL 59.89 ml/min Normal 50-250 [facility] Comment on above: Performed By: #### L 300.4310, L501.4021, L100.0100, L300.3900, L500.2500 ####[facility] [address] [place], [address] GAP 17 High 5-15 [facility] Comment on above: Performed By: #### L 300.4310, L501.4021, L100.0100, L300.3900, L500.2500 ####[facility] [address] [place], [address] GFR/1.73 sq M.predicted among non-blacks MDRD (S/P/Bld) [Vol rate/Area] 83 mL/min/{1.73_m2} Normal >60 [facility] Comment on above: Result Comment: mL/m in/1.73m2 CKD-EPI Creatinine Equation (2020) Performed By: #### L 300.4310, L501.4021, L100.0100, L300.3900, L500.2500 ####[facility] [address] [place], [address] Glucose [Mass/Vol] 152 mg/dL High 70-99 [facility] Comment on above: Performed By: #### L 300.4310, L501.4021, L100.0100, L300.3900, L500.2500 ####[facility] [address] [place], [address] Potassium [Moles/Vol] 3.6 mmol/L Normal 3.3-5.1 [facility] Comment on above: Performed By: #### L 300.4310, L501.4021, L100.0100, L300.3900, L500.2500 ####[facility] [address] [place], [address] Sodium [Moles/Vol] 137 mmol/L Normal 133-145 [facility] Comment on above: Performed By: #### L 300.4310, L501.4021, L100.0100, L300.3900, L500.2500 ####[facility] [address] [place], [address] Urea nitrogen [Mass/Vol] 20 mg/dL High 4-19 [facility] Comment on above: Performed By: #### L 300.4310, L501.4021, L100.0100, L300.3900, L500.2500 ####[facility] [address] [place], [address] Basophil percentageOrdered B y: Laureano Gallagher on 04-19-2024 Basophils/100 WBC (Bld) 0.3 % 0-1 [facility] Bedside Glucoseon 04-19-2024 FINGERSTICK GLU 143 mg/dL High 74-106 [facility] Comment on above: Result Comment: ELIGIO BUSCH OF PATIENT CARE PER NURSING PROTOCOL Performed By: #### L 501.080 ####[facility] [address] [place], [address] Brain without Contraston Brain without Contrast Normal [facility] CBC W/Diff, Automatedon 04-08 Absolute Lymph 1.41 X10 3/uL Normal 0.83-4.51 [facility] Comment on above: Performed By: #### L 300.4310, L501.4021, L100.0100, L300.3900, L500.2500 ####[facility] [address] [place], [address] Absolute Neut 12.1 X10 3/uL High 2.0-7.7 [facility] Comment on above: Performed By: #### L 300.4310, L501.4021, L100.0100, L300.3900, L500.2500 ####[facility] [address] [place], [address] Basophils/100 WBC (Bld) 0.3 % Normal 0-1 [facility] Comment on above: Performed By: #### L 300.4310, L501.4021, L100.0100, L300.3900, L500.2500 ####[facility] [address] [place], [address] Eosinophils/100 WBC (Bld) 0.0 % Normal 0-5 [facility] Comment on above: Performed By: #### L 300.4310, L501.4021, L100.0100, L300.3900, L500.2500 ####[facility] [address] [place], [address] Erythrocyte distribution width (RBC) [Ratio] 12.3 % Normal 11.6-14.6 [facility] Comment on above: Performed By: #### L 300.4310, L501.4021, L100.0100, L300.3900, L500.2500 ####[facility] [address] [place], [address] Hematocrit (Bld) [Volume fraction] 45.5 % Normal 40-54 [facility] Comment on above: Performed By: #### L 300.4310, L501.4021, L100.0100, L300.3900, L500.2500 ####[facility] [address] [place], [address] Hemoglobin (Bld) [Mass/Vol] 16.0 g/dL Normal 13.0-16.5 [facility] Comment on above: Performed By: #### L 300.4310, L501.4021, L100.0100, L300.3900, L500.2500 ####[facility] [address] [place], [address] IG% 0.500 Normal 0.0-0.9 [facility] Comment on above: Result Comment: IG% - Immature Granulocytes (promyelocytes, myelocytes andmetamyelocytes) > 1% indicates that a LEFT SHIFT is Present. Performed By: #### L 300.4310, L501.4021, L100.0100, L300.3900, L500.2500 ####[facility] [address] [place], [address] Lymphocytes/100 WBC (Bld) 9.8 % Low 19-41 [facility] Comment on above: Performed By: #### L 300.4310, L501.4021, L100.0100, L300.3900, L500.2500 ####[facility] [address] [place], [address] MCH (RBC) [Entitic mass] 30.0 pg Normal 27.0-32.0 [facility] Comment on above: Performed By: #### L 300.4310, L501.4021, L100.0100, L300.3900, L500.2500 ####[facility] [address] [place], [address] MCHC (RBC) [Mass/Vol] 35.2 g/dL Normal 32-36 [facility] Comment on above: Performed By: #### L 300.4310, L501.4021, L100.0100, L300.3900, L500.2500 ####[facility] [facility] [address] [place], [address] MCV (RBC) [Entitic vol] 85.2 fL Normal 80-94 [facility] Comment on above: Performed By: #### L 300.4310, L501.4021, L100.0100, L300.3900, L500.2500 ####[facility] [address] [place], [address] Monocytes/100 WBC (Bld) 5.7 % Normal 0-10 [facility] Comment on above: Performed By: #### L 300.4310, L501.4021, L100.0100, L300.3900, L500.2500 ####[facility] [address] [place], [address] Neutrophils/100 WBC (Bld) 83.7 % High 47-70 [facility] Comment on above: Performed By: #### L 300.4310, L501.4021, L100.0100, L300.3900, L500.2500 ####[facility] [address] [place], [address] Nucleated RBC (Bld) [#/Vol] 0 10*3/uL Normal 0-5 [facility] Comment on above: Performed By: #### L 300.4310, L501.4021, L100.0100, L300.3900, L500.2500 ####[facility] [address] [place], [address] Platelet mean volume (Bld) [Entitic vol] 8.6 fL Normal 6.2-12.0 [facility] Comment on above: Performed By: #### L 300.4310, L501.4021, L100.0100, L300.3900, L500.2500 ####[facility] [address] [place], [address] Platelets (Bld) [#/Vol] 216 10*3/uL Normal 150-450 [facility] Comment on above: Performed By: #### L 300.4310, L501.4021, L100.0100, L300.3900, L500.2500 ####[facility] [address] [place], [address] RBC (Bld) [#/Vol] 5.34 10*6/uL Normal 4.6-6.2 [facility] Comment on above: Performed By: #### L 300.4310, L501.4021, L100.0100, L300.3900, L500.2500 ####[facility] [address] [place], [address] RDW SD 37.7 fl Normal 35.1-43.9 [facility] Comment on above: Performed By: #### L 300.4310, L501.4021, L100.0100, L300.3900, L500.2500 ####[facility] [address] [place], [address] WBC (Bld) [#/Vol] 14.4 10*3/uL High 4.4-11.0 [facility] Comment on above: Performed By: #### L 300.4310, L501.4021, L100.0100, L300.3900, L500.2500 ####[facility] [address] [place], [address] Carbon dioxide, total [Moles /volume] in Central venous bloodOrdered By: Laureano Gallagher on 04-19-2024 CO2 [Moles/Vol] 22.0 mmol/L 21.0-32.0 [facility] Chest 1 Viewon 04-19-2024 Chest 1 View Normal [facility] Chloride assayOrdered By: Donovan Gallagher on 04-19-2024 Chloride [Moles/Vol] 98 mmol/L 98-108 [facility] Consultation - Surgicalon Consultation - Surgical Normal [facility] Echo Completeon 04-19-2024 Echo Complete Normal [facility] Emergency Department Summary on 04-19-2024 Emergency Department Summary Normal [facility] Eosinophil percentageOrdered By: Laureano Gallagher on 04-19-2024 Eosinophils/100 WBC (Bld) 0.0 % 0-5 [facility] Erythrocyte distribution wid th ratioOrdered By: Laureano Gallagher on 04-19-2024 Erythrocyte distribution width (RBC) [Ratio] 12.3 % 11.6-14.6 [facility] Erythrocyte distribution wid th standard deviationOrdered By: Laureano Gallagher on 04-19-2024 Erythrocyte distribution width (RBC) [Entitic vol] 37.7 fL 35.1-43.9 [facility] Estimation of creatinine yahir aranceOrdered By: Laureano Gallagher on 04-19-2024 Estimated Creatinine Clearance Calc 59.89 ml/min 50-250 [facility] GFR/1.73 sq M.predicted darrick g non-blacks MDRD (S/P/Bld) [Vol rate/Area]Ordered By: Laureano Gallagher on 04-19-2024 Estimated GFR (MDRD) Non-Af Amer 83 >60 [facility] Comment on above: mL/min/1.73m2 CKD-EP I Creatinine Equation (2020) [facility] deOrdered By: Laureano Gallagher on 04-19-2024 Bedside Glucose (Misc Panel) 143 mg/dL High 74-106 [facility] Comment on above: MANAGEMENT OF PATIEN T CARE PER NURSING PROTOCOL Glucose [Mass/Vol] 143 mg/dL High 74-106 [facility] H AND P Exam - Hospitaliston 04-19-2024 H&P Exam - Hospitalist Normal [facility] Hematocrit Auto (Bld) [Volum e fraction]Ordered By: Laureano Gallagher on 04-19-2024 Hematocrit (Bld) [Volume fraction] 45.5 % 40-54 [facility] Hemoglobin measurementOrdere d By: Laureano Gallagher on 04-19-2024 Hemoglobin (Bld) [Mass/Vol] 16.0 g/dL 13.0-16.5 [facility] Immature granulocytes/100 WB C Auto (Bld)Ordered By: Laureano Gallagher on 04-19-2024 Immature granulocytes/100 WBC (Bld) 0.500 % 0.0-0.9 [facility] Comment on above: IG% - Immature Granu locytes (promyelocytes, myelocytes and metamyelocytes) > 1% indicates that a LEFT SHIFT is Present. International normalized rat io (INR) calculationOrdered By: Laureano Gallagher on 04-19-2024 INR Coag (Bld) [Relative time] 1.0 {INR} [facility] L499.0042on 04-19-2024 Trop T High Sen 30 ng/L High <=22 [facility] Comment on above: Performed By: #### L 499.0042 ####[facility] [address] [place], [address] Trop T High Sen Normal <=22 [facility] Comment on above: Result Comment: Canc elled via OM: sequence error Performed By: #### L 499.0042 ####[facility] [address] [place], [address] L499.0043on 04-19-2024 Trop T High Sen 35 ng/L High <=22 [facility] Comment on above: Performed By: #### L 499.0043 ####[facility] [address] [place], [address] Trop T High Sen Normal <=22 [facility] Comment on above: Result Comment: PER OM STARTED SERIES OVER ON FLOOR ER DID NOT DRAW SPECIMEN Performed By: #### L 499.0043 ####[facility] [address] [place], [address] L501.4021on 04-19-2024 Trop T High Sen 31 ng/L High <=22 [facility] Comment on above: Performed By: #### L 501.4021 ####[facility] [address] [place], [address] Trop T High Sen 31 ng/L High <=22 [facility] Comment on above: Performed By: #### L 300.4310, L501.4021, L100.0100, L300.3900, L500.2500 ####[facility] [address] [place], [address] Lymphocytes Auto (Unsp spec) [#/Vol]Ordered By: Laureano Gallagher on 04-19-2024 Lymphocytes (Bld) [#/Vol] 1.41 10*3/uL 0.83-4.51 [facility] Lymphocytes/100 WBC Auto (Un sp spec)Ordered By: Laureano Gallagher on 04-19-2024 Lymphocytes/100 WBC (Bld) 9.8 % Low 19-41 [facility] MCV (mean corpuscular volume ) determinationOrdered By: Laureano Gallagher on 04-19-2024 MCV (RBC) [Entitic vol] 85.2 fL 80-94 [facility] Magnetic resonance imaging r eportOrdered By: Yas Mobley on 04-19-2024 Study report [facility] Imaging Services [address] [place] [address] Spine Cervical (Routine) MR#: [id number] Acct: [id number] Name: YAS ROSA Rep #: [id number] : 1940 M 83 From: Selwyn Mobley DO PCP: Dr. Kwabena Menjivar MD Status: ADM IRINA Study:Spine Cervical (Routine) Date of Exam: 04/19/24 Exam# [id number] Ordering Dr: Keanu Alfred DO PROCEDURE: MRI [...] Menjivar MD; Dr. Keanu Alfred DO ~ Employee Development Specialist: Signed [facility] Study report [facility] Imaging Services [address] [place] [address] [id number] Brain without Contrast MR#: [id number] Acct: [id number] Name: YAS ROSA Rep #: [id number] : 1940 M 83 From: Selwyn Mobley DO PCP: Dr. Kwabena Menjivar MD Status: ADM IRINA Study:Brain without Contrast Date of Exam: 04/19/24 Exam# [id number] Ordering Dr: Keanu Alfred DO PROCEDURE: MRI [...] Menjivar MD; Dr. Keanu Alfred, DO ~ Employee Development Specialist: Signed [facility] Mean corpuscular hemoglobin (MCH) determinationOrdered By: Laureano Gallagher on 04-19-2024 MCH (RBC) [Entitic mass] 30.0 pg 27.0-32.0 [facility] Mean corpuscular hemoglobin concentration (MCHC) determinationOrdered By: Laureano Gallagher on 04-19-2024 MCHC (RBC) [Mass/Vol] 35.2 g/dL 32-36 [facility] Mean platelet volume determi nationOrdered By: Laureano Gallagher on 04-19-2024 Platelet mean volume (Bld) [Entitic vol] 8.6 fL 6.2-12.0 [facility] Monocyte percentageOrdered B y: Laureano Gallagher on 04-19-2024 Monocytes/100 WBC (Bld) 5.7 % 0-10 [facility] Neutrophil percentageOrdered By: Laureano Gallagher on 04-19-2024 Neutrophils/100 WBC (Bld) 83.7 % High 47-70 [facility] No Panel InformationOrdered By: Keanu Alfred on 04-19-2024 Troponin T High Sensitivity 31 ng/L High <22 [facility] 31 ng/L High <22 [facility] No Panel InformationOrdered By: Laureano Gallagher on 04-19-2024 Troponin T High Sensitivity 31 ng/L High <22 [facility] Nucleated red blood cell per centageOrdered By: Laureano Gallagher on 04-19-2024 Nucleated RBC/100 WBC (Bld) [Ratio] 0 % 0-5 [facility] Partial Thromboplast Timeon 04-19-2024 aPTT Coag (Bld) [Time] 23.4 s Low 24.1-36.2 [facility] Comment on above: Performed By: #### L 300.4310, L501.4021, L100.0100, L300.3900, L500.2500 ####[facility] [address] [place], [address] Platelet countOrdered By: Donovan Gallagher on 04-19-2024 Platelets (Bld) [#/Vol] 216 10*3/uL 150-450 [facility] Potassium (Unsp spec) [Mass/ Vol]Ordered By: Laureano Gallagher on 04-19-2024 Potassium [Moles/Vol] 3.6 mmol/L 3.3-5.1 [facility] Prothrombin Time w/INRon INR Coag (PPP) [Relative time] 1.0 {INR} Normal [facility] Comment on above: Performed By: #### L 300.4310, L501.4021, L100.0100, L300.3900, L500.2500 ####[facility] [address] [place], [address] PT Coag (PPP) [Time] 13.5 s Normal 11.7-14.9 [facility] Comment on above: Performed By: #### L 300.4310, L501.4021, L100.0100, L300.3900, L500.2500 ####[facility] [address] [place], [address] Prothrombin timeOrdered By: Laureano Gallagher on 04-19-2024 PT Coag (PPP) [Time] 13.5 s 11.7-14.9 [facility] RBC Auto (Bld) [#/Vol]Ordere d By: Laureano Gallagher on 04-19-2024 RBC (Bld) [#/Vol] 5.34 10*6/uL 4.6-6.2 [facility] STROKE Brain/Head without Co nton 04-19-2024 STROKE Brain/Head without Cont Normal [facility] STROKE CTA Head AND Neck W/C onon 04-19-2024 STROKE CTA Head AND Neck W/Con Normal [facility] Serum creatinine measurement (mass/volume)Ordered By: Laureano Gallagher on 04-19-2024 Creatinine [Mass/Vol] 0.92 mg/dL 0.70-1.20 [facility] Serum glucose measurement (m ass/volume)Ordered By: Laureano Gallagher on 04-19-2024 Glucose [Mass/Vol] 152 mg/dL High 70-99 [facility] Serum or plasma calcium ratna urement (mass/volume)Ordered By: Laureano Gallagher on 04-19-2024 Calcium [Mass/Vol] 9.5 mg/dL 7.6-11.0 [facility] Serum or plasma urea nitroge n measurement (mass/volume)Ordered By: Laureano Gallagher on 04-19-2024 Urea nitrogen [Mass/Vol] 20 mg/dL High 4-19 [facility] Sinus/Facial Boneon 04-20-19 25 Sinus/Facial Bone Normal [facility] Sodium levelOrdered By: Surinder Gallagher on 04-19-2024 Sodium [Moles/Vol] 137 mmol/L 133-145 [facility] Spine Cervical (Routine)on 0 04-19-2024 Spine Cervical (Routine) Normal [facility] Troponin T.cardiac High sens itivity method [Mass/Vol]Ordered By: Keanu Alfred on 04-19-2024 Troponin T High Sensitivity 4 Hour 35 ng/L High <22 [facility] Troponin T High Sensitivity 2 Hour 30 ng/L High <22 [facility] Troponin T.cardiac [Mass/vol ume] in Serum or Plasma by High sensitivity methodOrdered By: Keanu Alfred on 04-19-2024 Troponin T.cardiac High sensitivity method [Mass/Vol] 35 ng/L High <22 [facility] Troponin T.cardiac High sensitivity method [Mass/Vol] 30 ng/L High <22 [facility] White blood cell (WBC) count Ordered By: Laureano Gallagher on 04-19-2024 WBC (Bld) [#/Vol] 14.4 10*3/uL High 4.4-11.0 [facility] aPTT Coag (PPP) [Time]Ordere d By: Laureano Gallagher on 04-19-2024 aPTT Coag (Bld) [Time] 23.4 s Low 24.1-36.2 [facility] Cerv Spine 4 or 5 Viewson Cerv Spine 4 or 5 Views Normal [facility] Brain/Head without Contrasto n 02-26-2024 Brain/Head without Contrast Normal [facility] Emergency Department Summary on 02-26-2024 Emergency Department Summary Normal [facility] Knee 4 or More Viewson 02-25 Knee 4 or More Views Normal [facility] Shoulder min 2 Viewson 02-25 Shoulder min 2 Views Normal [facility] Absolute lymphocyte countOrd ered By: William Menjivar on 10-22-2022 Lymphocytes Auto (Unsp spec) [#/Vol] 2.36 10*3/uL 0.83-4.51 [facility] Basophil percentageOrdered B y: William Menjivar on 10-22-2022 Basophils/100 WBC (Bld) 0.5 % 0-[address] [facility] Bilirubin [Mass/Vol] 0.40 mg/dL 0.20-1.00 [facility] Comment on above: For patients on eltr ombopag therapy, use of Dimension [place] TBIL is not recommended. Chloride [Moles/Vol] 107 mmol/L 98-107 [facility] Cholesterol [Mass/Vol] 171 mg/dL <200 [facility] Comment on above: <200 mg/dL Desirable 200-240 mg/dL Borderline >240 mg/dL High Risk Eosinophils/100 WBC (Bld) 2.4 % 0-5 [facility] Glucose [Mass/Vol] 94 mg/dL 74-106 [facility] Neutrophils (Bld) [#/Vol] 3.5 10*3/uL 2.0-7.7 [facility] Neutrophils/100 WBC (Bld) 53.3 % 47-70 [facility] Potassium [Moles/Vol] 4.0 mmol/L 3.5-5.1 [facility] Protein [Mass/Vol] 6.8 g/dL 6.4-8.2 [facility] Sodium [Moles/Vol] 138 mmol/L 136-145 [facility] Testosterone [Mass/Vol] 600.99 ng/dL [facility] Comment on above: CENTRAL 90% REFERENC E RANGES MALE AGE <50 197.44 - 669.58 ng/dL MALE AGE > or = 50 187.72 - 684.19 ng/dL FEMALE AGE <50 8.38 - 35.01 ng/dL FEMALE AGE > or = 50 <7.00 - 35.92 ng/dL Effective as of 09/03/20 Triglyceride [Mass/Vol] 144 mg/dL <[address] [facility] Comment on above: The drugs N-Acetylcy steine and Metamizole may falsely depress this assay.Serum Triglycerides Reference Interval Normal <150 mg/dL Borderline high 150 - 199 mg/dL High 200 - 499 mg/dL Very High > or = 500 mg/dL WBC (Bld) [#/Vol] 6.6 10*3/uL 4.4-11.0 [facility] Blood erythrocytes count (nu mber/volume)Ordered By: William Menjivar on 10-22-2022 RBC (Bld) [#/Vol] 5.14 10*6/uL 4.6-6.2 [facility] Blood hemoglobin measurement (mass/volume)Ordered By: William Menjivar on 10-22-2022 Hemoglobin (Bld) [Mass/Vol] 15.5 g/dL 13.0-16.5 [facility] Blood lymphocytes/100 leukoc ytesOrdered By: William Menjivar on 10-22-2022 Lymphocytes/100 WBC (Bld) 35.8 % 19-41 [facility] Blood monocytes/100 leukocyt esOrdered By: William Menjivar on 10-22-2022 Monocytes/100 WBC (Bld) 7.7 % 0-[address] [facility] Blood platelet mean volumeOr dered By: William Menjivar on 10-22-2022 Platelet mean volume (Bld) [Entitic vol] 8.8 fL 6.2-12.0 [facility] Determination of erythrocyte mean corpuscular volume (MCV)Ordered By: William Menjivar on 10-22-2022 MCV (RBC) [Entitic vol] 90.1 fL 80-94 [facility] Erythrocyte sedimentation ra teOrdered By: William Menjivar on 10-22-2022 ESR (Bld) [Velocity] 10 mm/h 0-20 [facility] Hematocrit Auto (Bld) [Volum e fraction]Ordered By: William Menjivar on 10-22-2022 Hematocrit (Bld) [Volume fraction] 46.3 % 40-54 [facility] Iron measurement (mass/mass) Ordered By: William Menjivar on 10-22-2022 Iron (Unsp spec) [Mass/Mass] 75 ug/dL 65-175 [facility] Laboratory - Chemistry and C hemistry - challengeOrdered By: William Menjivar on 10-22-2022 ALP [Catalytic activity/Vol] 98 U/L 45-117 [facility] ALT [Catalytic activity/Vol] 28 U/L 16-61 [facility] CO2 [Moles/Vol] 27.0 mmol/L 21.0-32.0 [facility] Cobalamin (Vitamin B12) [Mass/Vol] 266 pg/mL 211-911 [facility] Globulin (S) [Mass/Vol] 3.0 g/dL 2.2-4.2 [facility] Urea nitrogen/Creatinine [Mass ratio] 12.5 mg/mg 10-20 [facility] - Hematology and Cell countsOrdered By: William Menjivar on 10-22-2022 Erythrocyte distribution width (RBC) [Entitic vol] 41.8 fL 35.1-43.9 [facility] Erythrocyte distribution width (RBC) [Ratio] 12.5 % 11.6-14.6 [facility] Immature granulocytes/100 WBC (Bld) 0.300 % 0.0-0.9 [facility] Comment on above: IG% - Immature Granu locytes (promyelocytes, myelocytes and metamyelocytes) > 1% indicates that a LEFT SHIFT is Present. MCH (RBC) [Entitic mass] 30.2 pg 27.0-32.0 [facility] Nucleated RBC/100 WBC (Bld) [Ratio] 0 % 0-5 [facility] Auto (RBC) [Mass/Vol]Or dered By: William Menjivar on 10-22-2022 MCHC (RBC) [Mass/Vol] 33.5 g/dL 32-36 [facility] No Panel InformationOrdered By: William Menjivar on 10-22-2022 Anti-Nuclear Antibody Screen Positive Negative [facility] Comment on above: Performed at: - [address] [id number] Director: Nino Del Castillo PhD, Phone: [phone] Estimated GFR (MDRD) Amer 119 mL/min >60 [facility] Comment on above: GFR Calc Estimated GFR (MDRD) Non-Af Amer 99 mL/min >60 [facility] Comment on above: Non- GFR Calc Thyroid Stimulating Hormone (TSH) 1.22 uIU/mL 0.358-3.74 [facility] Vitamin D 25-Hydroxy 28.9 ng/mL [facility] Comment on above: Vitamin D 25(OH) Sta tus Range Deficiency <20 ng/mL (50nmol/L) Insufficiency 20 - 30 ng/mL (50 - 75 nmol/L) Sufficiency 30 - 100 ng/mL (75 - 250 nmol/L) Toxicity >100 ng/mL (>250 nmol/L) Platelets bldOrdered By: Blayne Menjivar on 10-22-2022 Platelets (Bld) [#/Vol] 210 10*3/uL 150-450 [facility] Serum or plasma C reactive p rotein measurement (mass/volume)Ordered By: William Menjivar on 10-22-2022 CRP [Mass/Vol] mg/L 0.0-3.0 [facility] Comment on above: C-Reactive Protein ( CRP) provides useful information for thediagnosis, therapy and monitoring of inflammatory processesand associated diseases. For the evaluation of Relative Riskfor Cardiovascular Disease, a High Sensitivity CRP (HSCRP)should be ordered. Serum or plasma albumin ratna urement (mass/volume)Ordered By: William Menjivar on 10-22-2022 Albumin [Mass/Vol] 3.8 g/dL 3.2-5.0 [facility] Serum or plasma albumin/glob ulin mass ratioOrdered By: William Menjivar on 10-22-2022 Albumin/Globulin [Mass ratio] 1.3 {ratio} 0.9-2.4 [facility] Serum or plasma calcium ratna urement (mass/volume)Ordered By: William Menjivar on 10-22-2022 Calcium [Mass/Vol] 8.8 mg/dL 8.5-10.1 [facility] Serum or plasma cholesterol in HDL measurement (mass/volume)Ordered By: William Menjivar on 10-22-2022 Cholesterol in HDL [Mass/Vol] 52 mg/dL >40 [facility] Comment on above: The drugs N-Acetylcy steine and Metamizole may falsely depress this assay. Reference Range HDL <40 mg/dL Low HDL Cholesterol HDL >or= 60 mg/dL High HDL Cholesterol Serum or plasma cholesterol in VLDL measurement (mass/volume)Ordered By: William Menjivar on 10-22-2022 Cholesterol in VLDL [Mass/Vol] 29 mg/dL 5-40 [facility] Serum or plasma creatinine m easurement (mass/volume)Ordered By: William Menjivar on 10-22-2022 Creatinine [Mass/Vol] 0.80 mg/dL 0.70-1.30 [facility] Comment on above: The validity of the calculated GFR & GFRAA in patients over 70 years has not been determined. Clinical correlation is essential. Serum or plasma ferritin darline surement (mass/volume)Ordered By: William Menjivar on 10-22-2022 Ferritin [Mass/Vol] 168 ng/mL 26-388 [facility] Serum or plasma low density lipoprotein (LDL) cholesterol measurement (mass/volume)Ordered By: William Menjivar on 10-22-2022 Cholesterol in LDL [Mass/Vol] 90 mg/dL 0-130 [facility] Serum or plasma urea nitroge n measurement (mass/volume)Ordered By: William Menjivar on 10-22-2022 Urea nitrogen [Mass/Vol] 10 mg/dL 7-18 [facility] Serum rheumatoid factor dete ctionOrdered By: William Menjivar on 10-22-2022 Rheumatoid factor Ql (S) < 10.0 IU/mL <15 [facility] Thin prep Papanicolaou smear with manual screeningOrdered By: William Menjivar on 10-22-2022 Thin prep Papanicolaou smear with manual screening 20 U/L 15-37 [facility] Thin prep Papanicolaou smear with manual screening 4 5-15 [facility] Emergency Room Note on 09-18-2016 [place] [facility] Note Normal [facility] ([place]) .Auto Diffon 09-15-2016 Basophils Auto #/vol (Bld) 0.10 10 3/mcL Normal 0.00-0.19 [facility] ([place]) Comment on above: Performed By: #### C BC, ADIFF, ANEU, TROP, GFR, CMP ####[address] [place], [place] [address] Basophils/100 WBC Auto (Bld) 0.7 % Normal 0.0-2.5 [facility] ([place]) Comment on above: Performed By: #### C BC, ADIFF, ANEU, TROP, GFR, CMP ####[address] [place], [place] [address] Eosinophils 0.00 10 3/mcL Normal 0.00-0.40 [facility] ([place]) Comment on above: Performed By: #### C BC, ADIFF, ANEU, TROP, GFR, CMP ####[address] [place], [place] [address] Eosinophils/100 leukocytes 0.5 % Normal 0.0-7.0 [facility] ([place]) Comment on above: Performed By: #### C BC, ADIFF, ANEU, TROP, GFR, CMP ####[address] [place], [place] [address] Lymphocytes 1.90 10 3/mcL Normal 0.77-3.85 [facility] ([place]) Comment on above: Performed By: #### C BC, ADIFF, ANEU, TROP, GFR, CMP ####[address] [place], [place] [address] Lymphocytes/100 leukocytes 21.5 % Normal 10.0-50.0 [facility] ([place]) Comment on above: Performed By: #### C BC, ADIFF, ANEU, TROP, GFR, CMP ####[address] [place], [place] [address] Monocytes 0.70 10 3/mcL Normal 0.15-1.00 [facility] ([place]) Comment on above: Performed By: #### C BC, ADIFF, ANEU, TROP, GFR, CMP ####[address] [place], [place] [address] Monocytes/100 leukocytes 7.5 % Normal 1.7-13.0 [facility] ([place]) Comment on above: Performed By: #### C BC, ADIFF, ANEU, TROP, GFR, CMP ####[address] [place], [place] [address] Neutrophils/100 WBC Auto (Bld) 69.8 % Normal 37.0-80.0 [facility] ([place]) Comment on above: Performed By: #### C BC, ADIFF, ANEU, TROP, GFR, CMP ####[address] [place], [place] [address] .NEUABSon 09-15-2016 Neutrophils 6.30 10 3/mcL High 2.85-6.16 [facility] ([place]) Comment on above: Performed By: #### C BC, ADIFF, ANEU, TROP, GFR, CMP ####[address] [place], [place] [address] CBCon 09-15-2016 Erythrocyte distribution width Auto Ratio (RBC) 13.0 % Normal 11.5-14.5 [facility] ([place]) Comment on above: Performed By: #### C BC, ADIFF, ANEU, TROP, GFR, CMP ####[address] [place], [place] [address] Erythrocytes (RBC) 5.10 10 6/mcL Normal 4.04-6.13 [facility] ([place]) Comment on above: Performed By: #### C BC, ADIFF, ANEU, TROP, GFR, CMP ####[address] [place], [place] [address] Hematocrit (HCT) 43.6 % Normal 42.0-52.0 [facility] ([place]) Comment on above: Performed By: #### C BC, ADIFF, ANEU, TROP, GFR, CMP ####[address] [place], [place] [address] Hemoglobin mass conc (Bld) 14.9 G/dL Normal 14.0-18.0 [facility] ([place]) Comment on above: Performed By: #### C BC, ADIFF, ANEU, TROP, GFR, CMP ####[address] [place], [place] [address] MCH 29.1 pg Normal 27.0-31.2 [facility] ([place]) Comment on above: Performed By: #### C BC, ADIFF, ANEU, TROP, GFR, CMP ####[address] [place], [place] [address] MCHC mass conc (RBC) 34.1 G/dL Normal 31.8-35.4 [facility] ([place]) Comment on above: Performed By: #### C BC, ADIFF, ANEU, TROP, GFR, CMP ####Macy [address] [place], [place] [address] MCV 85.5 fL Normal 80.0-94.0 [facility] ([place]) Comment on above: Performed By: #### C BC, ADIFF, ANEU, TROP, GFR, CMP ####Macy E[address] [place], [place] [address] Platelet mean volume (PMV) 6.7 fL Low 7.4-10.4 [facility] ([place]) Comment on above: Performed By: #### C BC, ADIFF, ANEU, TROP, GFR, CMP ####Macy [address] [place], [place] [address] Platelets 207 10 3/mcL Normal 130-400 [facility] ([place]) Comment on above: Performed By: #### C BC, ADIFF, ANEU, TROP, GFR, CMP ####Macy Hg[address]xja[address] [place], [place] [address] WBC (Leukocytes) 9.00 10 3/mcL Normal 4.60-10.80 [facility] ([place]) Comment on above: Performed By: #### C BC, ADIFF, ANEU, TROP, GFR, CMP ####Macy [address] [place], [place] [address] CMPon 09-15-2016 BUN/Creatinine Ratio 11 ratio Normal 7-27 [facility] ([place]) Comment on above: Performed By: #### C BC, ADIFF, ANEU, TROP, GFR, CMP ####Macy [address] [place], [place] [address] Creatinine 1.1 mg/dL Normal 0.6-1.2 [facility] ([place]) Comment on above: Performed By: #### C BC, ADIFF, ANEU, TROP, GFR, CMP ####Macy [address] [place], [place] [address] Alanine aminotransferase (ALT) 13 ZZ Normal 10-35 [facility] ([place]) Comment on above: Performed By: #### C BC, ADIFF, ANEU, TROP, GFR, CMP ####Macy [address] [place], [place] [address] Albumin 4.6 G/dL Normal 3.4-4.8 [facility] ([place]) Comment on above: Performed By: #### C BC, ADIFF, ANEU, TROP, GFR, CMP ####Macy [address] [place], [place] [address] Albumin/Globulin Ratio 1.8 {ratio} Normal 1.1-2.5 [facility] ([place]) Comment on above: Performed By: #### C BC, ADIFF, ANEU, TROP, GFR, CMP ####Macy X[address] [place], [place] [address] Alk Phos 80 ZZ Normal 40-135 [facility] ([place]) Comment on above: Performed By: #### C BC, ADIFF, ANEU, TROP, GFR, CMP ####Macy [address] [place], [place] [address] Aspartate aminotransferase (AST) 14 ZZ Normal 10-40 [facility] ([place]) Comment on above: Performed By: #### C BC, ADIFF, ANEU, TROP, GFR, CMP ####Macy M[address]fhc[address] [place], [place] [address] Bili Total 0.7 mg/dL Normal 0.2-1.0 [facility] ([place]) Comment on above: Performed By: #### C BC, ADIFF, ANEU, TROP, GFR, CMP ####Macy Davis[address] [place], [place] [address] Calcium 9.3 mg/dL Normal 8.4-10.2 [facility] ([place]) Comment on above: Performed By: #### C BC, ADIFF, ANEU, TROP, GFR, CMP ####Macy [address] [place], [place] [address] CO2 23 mmol/L Normal 23-31 [facility] ([place]) Comment on above: Performed By: #### C BC, ADIFF, ANEU, TROP, GFR, CMP ####Macy [address] [place], [place] [address] Electrolyte Balance 10.0 mEq/L Normal [facility] ([place]) Comment on above: Performed By: #### C BC, ADIFF, ANEU, TROP, GFR, CMP ####Macy [address] [place], [place] [address] Globulin 2.5 G/dL Normal [facility] ([place]) Comment on above: Performed By: #### C BC, ADIFF, ANEU, TROP, GFR, CMP ####Macy [address] [place], [place] [address] Glucose mass conc 104 mg/dL Normal 83-110 [facility] ([place]) Comment on above: Performed By: #### C BC, ADIFF, ANEU, TROP, GFR, CMP ####Macy [address] [place], [place] [address] Protein 7.1 G/dL Normal 6.0-8.3 [facility] ([place]) Comment on above: Performed By: #### C BC, ADIFF, ANEU, TROP, GFR, CMP ####Macy [address] [place], [place] [address] Urea nitrogen 12.6 mg/dL Normal 7.0-18.0 [facility] ([place]) Comment on above: Performed By: #### C BC, ADIFF, ANEU, TROP, GFR, CMP ####Macy [address] [place], [place] [address] Chloride 102 mmol/L Normal 98-107 [facility] ([place]) Comment on above: Performed By: #### C BC, ADIFF, ANEU, TROP, GFR, CMP ####Macy [address] [place], [place] [address] Potassium molar conc 4.1 mmol/L Normal 3.5-5.1 [facility] ([place]) Comment on above: Performed By: #### C BC, ADIFF, ANEU, TROP, GFR, CMP ####Macy [address] [place], [place] [address] Sodium 135 mmol/L Low 136-146 [facility] ([place]) Comment on above: Performed By: #### C BC, ADIFF, ANEU, TROP, GFR, CMP ####Macy [address] [place], [place] [address] CT ABD/PELVIS W/ IV CONTRAST ONLYon 09-15-2016 [...] Date: 09/15/2016 12:20:36 AM Normal [facility] ([place]) GFRon 09-15-2016 eGFR (non-black) 79 ml/min/1.73sqm Normal [facility] ([place]) Comment on above: Result Comment: GFR Population [...] ADIFF, ANEU, TROP, GFR, CMP ####Macy [address] [place], [place] [address] eGFR (non-black) mL/min/{1.73_m2} Normal [facility] ([place]) Comment on above: Result Comment: GFR Population [...] BC, ADIFF, ANEU, TROP, GFR, CMP ####Macy [address] [place], [place] [address] LIPon 09-15-2016 Lipase Level 26 ZZ Normal [facility] ([place]) Comment on above: Performed By: #### C BC, ADIFF, ANEU, TROP, GFR, CMP ####Macy [address] [place], [place] [address] [facility] Note on 09-15-2016 [facility] Note Normal [facility] ([place]) Patient Summary Documentson 09-15-2016 Patient Summary Documents Normal [facility] ([place]) .Auto Diffon 09-12-2016 Basophils Auto #/vol (Bld) 0.00 10 3/mcL Normal 0.00-0.19 [facility] ([place]) Comment on above: Performed By: #### C BC, ADIFF, ANEU, TROP, GFR, CMP ####Macy [address] [place], [place] [address] Basophils/100 WBC Auto (Bld) 0.5 % Normal 0.0-2.5 [facility] ([place]) Comment on above: Performed By: #### C BC, ADIFF, ANEU, TROP, GFR, CMP ####Macy [address] [address] Eosinophils 0.00 10 3/mcL Normal 0.00-0.40 [facility] ([place]) Comment on above: Performed By: #### C BC, ADIFF, ANEU, TROP, GFR, CMP ####Macyautumn [address] [place], [place] [address] Eosinophils/100 leukocytes 0.4 % Normal 0.0-7.0 [facility] ([place]) Comment on above: Performed By: #### C BC, ADIFF, ANEU, TROP, GFR, CMP ####Macy [address] [place] [address] Lymphocytes 2.50 10 3/mcL Normal 0.77-3.85 [facility] ([place]) Comment on above: Performed By: #### C BC, ADIFF, ANEU, TROP, GFR, CMP ####Macy [address] [place], [place] [address] Lymphocytes/100 leukocytes 28.8 % Normal 10.0-50.0 [facility] ([place]) Comment on above: Performed By: #### C BC, ADIFF, ANEU, TROP, GFR, CMP ####Macy [address] [place], [place] [address] Monocytes 0.80 10 3/mcL Normal 0.15-1.00 [facility] ([place]) Comment on above: Performed By: #### C BC, ADIFF, ANEU, TROP, GFR, CMP ####Macy [address] [place], [place] [address] Monocytes/100 leukocytes 9.2 % Normal 1.7-13.0 [facility] ([place]) Comment on above: Performed By: #### C BC, ADIFF, ANEU, TROP, GFR, CMP ####Macy [address] [place], [place] [address] Neutrophils/100 WBC Auto (Bld) 61.1 % Normal 37.0-80.0 [facility] ([place]) Comment on above: Performed By: #### C BC, ADIFF, ANEU, TROP, GFR, CMP ####Macy [address] [place], [place] [address] .NEUABSon 09-12-2016 Neutrophils 5.30 10 3/mcL Normal 2.85-6.16 [facility] ([place]) Comment on above: Performed By: #### C BC, ADIFF, ANEU, TROP, GFR, CMP ####Macy [address] [place], [place] [address] .Urinalysis Microscopic (AO) on 09-12-2016 UA Squam Epithelial 0-5 Abnormal None Seen [facility] ([place]) Comment on above: Performed By: #### U A, UAMICAO ####Macy [address] [place], [place] [address] UA WBC None Seen Normal None Seen [facility] ([place]) Comment on above: Performed By: #### U A, UAMICAO ####Macy [address] [place] [phone] Urine, erythrocytes None Seen Normal None Seen [facility] ([place]) Comment on above: Performed By: #### U A, UAMICAO ####Macy [address] [place], [place] [address] CBCon 09-12-2016 Erythrocyte distribution width Auto Ratio (RBC) 12.9 % Normal 11.5-14.5 [facility] ([place]) Comment on above: Performed By: #### C BC, ADIFF, ANEU, TROP, GFR, CMP ####Macy [address] [place], [place] [address] Erythrocytes (RBC) 4.97 10 6/mcL Normal 4.04-6.13 [facility] ([place]) Comment on above: Performed By: #### C BC, ADIFF, ANEU, TROP, GFR, CMP ####Macy [address] [place] [phone] Hematocrit (HCT) 42.2 % Normal 42.0-52.0 [facility] ([place]) Comment on above: Performed By: #### C BC, ADIFF, ANEU, TROP, GFR, CMP ####Macy [address] [place] [address] Hemoglobin mass conc (Bld) 14.5 G/dL Normal 14.0-18.0 [facility] ([place]) Comment on above: Performed By: #### C BC, ADIFF, ANEU, TROP, GFR, CMP ####Macy [address] [place] [address] MCH 29.3 pg Normal 27.0-31.2 [facility] ([place]) Comment on above: Performed By: #### C BC, ADIFF, ANEU, TROP, GFR, CMP ####Macy [address] [place] [phone] MCHC mass conc (RBC) 34.4 G/dL Normal 31.8-35.4 [facility] ([place]) Comment on above: Performed By: #### C BC, ADIFF, ANEU, TROP, GFR, CMP ####Macy [address] [place] [address] MCV 85.0 fL Normal 80.0-94.0 [facility] ([place]) Comment on above: Performed By: #### C BC, ADIFF, ANEU, TROP, GFR, CMP ####Macy [address] [place] [phone] Platelet mean volume (PMV) 6.8 fL Low 7.4-10.4 [facility] ([place]) Comment on above: Performed By: #### C BC, ADIFF, ANEU, TROP, GFR, CMP ####Macy [address] [place], [place] [address] Platelets 196 10 3/mcL Normal 130-400 [facility] ([place]) Comment on above: Performed By: #### C BC, ADIFF, ANEU, TROP, GFR, CMP ####Macy [address] [place], [place] [address] WBC (Leukocytes) 8.70 10 3/mcL Normal 4.60-10.80 [facility] ([place]) Comment on above: Performed By: #### C BC, ADIFF, ANEU, TROP, GFR, CMP ####Macy [address] [place], [place] [address] CMPon 09-12-2016 Aspartate aminotransferase (AST) 15 ZZ Normal 10-40 [facility] ([place]) Comment on above: Performed By: #### C BC, ADIFF, ANEU, TROP, GFR, CMP ####Macy [address] [place], [place] [address] Alanine aminotransferase (ALT) 14 ZZ Normal 10-35 [facility] ([place]) Comment on above: Performed By: #### C BC, ADIFF, ANEU, TROP, GFR, CMP ####Macy [address] [place], [place] [address] Alk Phos 74 ZZ Normal 40-135 [facility] ([place]) Comment on above: Performed By: #### C BC, ADIFF, ANEU, TROP, GFR, CMP ####Macy [address] [place], [place] [address] Glucose mass conc 96 mg/dL Normal 83-110 [facility] ([place]) Comment on above: Performed By: #### C BC, ADIFF, ANEU, TROP, GFR, CMP ####Macy [address] [place], [place] [address] Albumin/Globulin Ratio 1.9 {ratio} Normal 1.1-2.5 [facility] ([place]) Comment on above: Performed By: #### C BC, ADIFF, ANEU, TROP, GFR, CMP ####Bastian [address] [place], [place] [address] Globulin 2.3 G/dL Normal [facility] ([place]) Comment on above: Performed By: #### C BC, ADIFF, ANEU, TROP, GFR, CMP ####Macy [address] [place], [place] [address] Protein 6.6 G/dL Normal 6.0-8.3 [facility] ([place]) Comment on above: Performed By: #### C BC, ADIFF, ANEU, TROP, GFR, CMP ####Macy [address] [place] [address] Chloride 101 mmol/L Normal 98-107 [facility] ([place]) Comment on above: Performed By: #### C BC, ADIFF, ANEU, TROP, GFR, CMP ####Macy [address] [place] [address] Electrolyte Balance 11.0 mEq/L Normal [facility] ([place]) Comment on above: Performed By: #### C BC, ADIFF, ANEU, TROP, GFR, CMP ####Macy [address] [place] [address] Potassium molar conc 4.2 mmol/L Normal 3.5-5.1 [facility] ([place]) Comment on above: Performed By: #### C BC, ADIFF, ANEU, TROP, GFR, CMP ####Macy [address] [place] [address] Sodium 135 mmol/L Low 136-146 [facility] ([place]) Comment on above: Performed By: #### C BC, ADIFF, ANEU, TROP, GFR, CMP ####Macy [address] [place] [address] Bili Total 0.8 mg/dL Normal 0.2-1.0 [facility] ([place]) Comment on above: Performed By: #### C BC, ADIFF, ANEU, TROP, GFR, CMP ####Macy [address] [place] [address] BUN/Creatinine Ratio 14 ratio Normal 7-27 [facility] ([place]) Comment on above: Performed By: #### C BC, ADIFF, ANEU, TROP, GFR, CMP ####Macy [address] [place], [place] [address] Calcium 8.9 mg/dL Normal 8.4-10.2 [facility] ([place]) Comment on above: Performed By: #### C BC, ADIFF, ANEU, TROP, GFR, CMP ####Macy [address] [place], [place] [address] CO2 23 mmol/L Normal 23-31 [facility] ([place]) Comment on above: Performed By: #### C BC, ADIFF, ANEU, TROP, GFR, CMP ####Macy [address] [place], [place] [address] Creatinine 1.0 mg/dL Normal 0.6-1.2 [facility] ([place]) Comment on above: Performed By: #### C BC, ADIFF, ANEU, TROP, GFR, CMP ####Macy [address] [place], [place] [address] Albumin 4.3 G/dL Normal 3.4-4.8 [facility] ([place]) Comment on above: Performed By: #### C BC, ADIFF, ANEU, TROP, GFR, CMP ####Macyautumn [address] [place], [place] [address] Urea nitrogen 13.9 mg/dL Normal 7.0-18.0 [facility] ([place]) Comment on above: Performed By: #### C BC, ADIFF, ANEU, TROP, GFR, CMP ####Macy [address] [place], [place] [address] CT HEAD OR BRAIN W/O CONTRAS Ton [...] Date: 09/12/2016 5:53:51 PM Normal [facility] ([place]) GFRon 09-12-2016 eGFR (non-black) mL/min/{1.73_m2} Normal [facility] ([place]) Comment on above: Result Comment: GFR Population [...] BC, ADIFF, ANEU, TROP, GFR, CMP ####Macy [address] [place], [place] [address] eGFR (non-black) 91 ml/min/1.73sqm Normal [facility] ([place]) Comment on above: Result Comment: GFR Population [...] ADIFF, ANEU, TROP, GFR, CMP ####Macy [address] [place], [place] [address] Patient Summary Documentson 09-12-2016 Patient Summary Documents Normal [facility] ([place]) TROPon 09-12-2016 Troponin I.cardiac mass conc ng/mL Normal 0.00-0.30 [facility] ([place]) Comment on above: Result Comment: Belo w measuring range>=0.30 Consistent with cardiac damage, increased clinical risk and possibility of myocardial infarction. Serial measurements, clinical history, appropriate symptoms and/or ECG changes may help assess possibility of ND.*Other non-acute coronary syndrome conditions such as CHF, myocarditis, pulmonary emboli, sepsis and cardiac surgery could result in myocardial damage and increased troponin levels. Performed By: #### C BC, ADIFF, ANEU, TROP, GFR, CMP ####Macy [address] [place], [place] [address] UAon 09-12-2016 UA Appear CLEAR Normal [facility] ([place]) Comment on above: Performed By: #### U A, UAMICAO ####Macy [address] [place], [place] [address] UA Blood Negative [facility]) Comment on above: Performed By: #### U A, UAMICAO ####Macy [address] [place], [place] [address] UA Leuk Est Negative [facility] ([place]) Comment on above: Performed By: #### U A, UAMICAO ####Macy [address] [place], [place] [address] UA Nitrite Negative [facility] ([place]) Comment on above: Performed By: #### U A, UAMICAO ####Macy [address] [place] [phone] UA pH 5.5 [facility] ([place]) Comment on above: Performed By: #### U A, UAMICAO ####Macy [address] [place], [place] [address] UA Protein Negative [facility] ([place]) Comment on above: Performed By: #### U A, UAMICAO ####Macy [address] [place], [place] [address] UA Spec Grav 1.020 [facility] ([place]) Comment on above: Performed By: #### U A, UAMICAO ####Macy [address] [place], [place] [address] UA Specimen Type Clean Catch [facility] ([place]) Comment on above: Performed By: #### U A, UAMICAO ####Macy [address] [place] [address] UA Urobilinogen 0.2 E.U./dL [facility] ([place]) Comment on above: Performed By: #### U A, UAMICAO ####Macy [address] [place], [place] [address] Urine, color YELLOW [facility] ([place]) Comment on above: Performed By: #### U A, UAMICAO ####Macy [address] [place], [place] [address] Urine, glucose Negative [facility] ([place]) Comment on above: Performed By: #### U A, UAMICAO ####Macy [address] [place], [place] [address] Urine, ketones presence 40 mg/dL Abnormal Negative [facility] ([place]) Comment on above: Performed By: #### U A, UAMICAO ####Macy [address] [place], [place] [address] Urine, urobilinogen Negative [facility] ([place]) Comment on above: Performed By: #### U A, UAMICAO ####Macy [address] [place], [place] [address] XR CHEST 1 VIEWon 09-12-2016 XR CHEST [...] Date: 09/12/2016 5:55:03 PM Normal [facility] ([place]) Vital Signs Date Time Vital Sign Value Performing Clinician Faci lity 10-18-2024 04:00-0400 Body temperature 98.2 [degF] Dr. Kwabena Menjivar MD Work Phone: [facility] 10-18-2024 04:00-0400 Diastolic blood pressure 91 mm[Hg] Dr. Kwabena Menjivar MD Work Phone: [facility] 10-18-2024 04:00-0400 Heart rate 71 /min Dr. Kwabena Menjivar MD Work Phone: [facility] 10-18-2024 04:00-0400 Respiratory rate 18 /min Dr. Kwabena Menjivar MD Work Phone: [facility] 10-18-2024 04:00-0400 SaO2% (BldA) [Mass fraction] 99 % Dr. Kwabena Menjivar MD Work Phone: [facility] 10-18-2024 04:00-0400 Systolic blood pressure 165 mm[Hg] Dr. Kwabena Menjivar MD Work Phone: [facility] 10-17-2024 23:16-0400 Body height 172.[address] Kwabena Menjivar MD Work Phone: [facility] 10-17-2024 23:16-0400 Body mass index (BMI) [Ratio] 23.2 kg/m2 Dr. Kwabena Menjivar MD Work Phone: [facility] 10-17-2024 23:16-0400 Body weight 69.[address] Kwabena Menjivar MD Work Phone: [facility] 08-11-2024 14:00-0400 Diastolic blood pressure 84 mm[Hg] Dr. Kwabena Menjivar MD Work Phone: [facility] 08-11-2024 14:00-0400 Heart rate 60 /min Dr. Kwabena Menjivar MD Work Phone: [facility] 08-11-2024 14:00-0400 Respiratory rate 14 /min Dr. Kwabena Menjivar MD Work Phone: [facility] 08-11-2024 14:00-0400 SaO2% (BldA) [Mass fraction] 94 % Dr. Kwabena Menjivar MD Work Phone: [facility] 08-11-2024 14:00-0400 Systolic blood pressure 158 mm[Hg] Dr. Kwabena Menjivar MD Work Phone: [facility] 08-11-2024 13:57-0400 Body temperature 98 [degF] Dr. Kwabena Menjivar MD Work Phone: [facility] 08-11-2024 09:03-0400 Body height 172.[address] Kwabena Menjivar MD Work Phone: [facility] 08-11-2024 09:03-0400 Body mass index (BMI) [Ratio] 24 kg/m2 Dr. Kwabena Menjivar MD Work Phone: [facility] 08-11-2024 09:03-0400 Body weight 71.[address] Kwabena Menjivar MD Work Phone: [facility] 08-09-2024 08:00-0400 Body temperature 97.9 [degF] Dr. Kwabena Menjivar MD Work Phone: [facility] 08-09-2024 08:00-0400 Diastolic blood pressure 63 mm[Hg] Dr. Kwabena Menjivar MD Work Phone: [facility] 08-09-2024 08:00-0400 Heart rate 73 /min Dr. Kwabena Menjivar MD Work Phone: [facility] 08-09-2024 08:00-0400 Respiratory rate 18 /min Dr. Kwabena Menjivar MD Work Phone: [facility] 08-09-2024 08:00-0400 SaO2% (BldA) [Mass fraction] 95 % Dr. Kwabena Menjivar MD Work Phone: 2(798)950-304421 [place] [address] 08-09-2024 08:00-0400 Systolic blood pressure 108 mm[Hg] Dr. Kwabena Menjivar MD Work Phone: [facility] 08-06-2024 10:33-0400 Body height 172.[address] Kwabena Menjivar MD Work Phone: 6(632)018-045721 [place] [address] 08-06-2024 10:33-0400 Body weight 71.[address] Kwabena Menjivar MD Work Phone: 7(155)515-951121 [place] [address] 08-05-2024 16:32-0400 Body mass index (BMI) [Ratio] 24 kg/m2 Dr. Kwabena Menjivar MD Work Phone: [facility] 08-05-2024 15:59-0400 Body temperature 97.9 [degF] Dr. Kwabena Menjivar MD Work Phone: [facility] 08-05-2024 15:59-0400 Diastolic blood pressure 74 mm[Hg] Dr. Kwabena Menjivar MD Work Phone: [facility] 08-05-2024 15:59-0400 Heart rate 75 /min Dr. Kwabena Menjivar MD Work Phone: [facility] 08-05-2024 15:59-0400 Respiratory rate 16 /min Dr. Kwabena Menjivar MD Work Phone: 2(123)735-013221 [place] [address] 08-05-2024 15:59-0400 SaO2% (BldA) [Mass fraction] 98 % Dr. Kwabena Menjivar MD Work Phone: 0(003)040-315621 [place] [address] 08-05-2024 15:59-0400 Systolic blood pressure 108 mm[Hg] Dr. Kwabena Menjivar MD Work Phone: 0(751)016-802611 [place] [address] 08-05-2024 12:43-0400 Body mass index (BMI) [Ratio] 24.7 kg/m2 Dr. Kwabena Menjivar MD Work Phone: 6(498)225-675211 [place] [address] 08-05-2024 12:43-0400 Body weight [address] Kwabena Menjivar MD Work Phone: 5(712)624-930511 [place] [address] 08-05-2024 11:33-0400 Body height 172.[address] Kwabena Menjivar MD Work Phone: 5(650)676-587211 [place] [address] 07-27-2024 17:38-0400 Body height 172.[address] Kwabena Menjivar MD Work Phone: 0(874)285-745111 [place] [address] 05-25-2024 13:01-0400 Body height 172.[address] Kwabena Menjivar MD Work Phone: 5(103)163-466711 [place] [address] 05-25-2024 13:01-0400 Body mass index (BMI) [Ratio] 23.1 kg/m2 Dr. Kwabena Menjivar MD Work Phone: 6(428)425-285821 [place] [address] 05-25-2024 13:01-0400 Body weight 68.[address] Kwabena Menjivar MD Work Phone: 2(866)293-328911 [place] [address] 05-25-2024 13:01-0400 Diastolic blood pressure 52 mm[Hg] Dr. Kwabena Menjivar MD Work Phone: 0(874)793-782311 [place] [address] 05-25-2024 13:01-0400 Heart rate 73 /min Dr. Kwabena Menjivar MD Work Phone: 8(091)576-733811 [place] [address] 05-25-2024 13:01-0400 Respiratory rate 16 /min Dr. Kwabena Menjivar MD Work Phone: [facility] 05-25-2024 13:01-0400 SaO2% (BldA) [Mass fraction] 96 % Dr. Kwabena Menjivar MD Work Phone: [facility] 05-25-2024 13:01-0400 Systolic blood pressure 82 mm[Hg] Dr. Kwabena Menjivar MD Work Phone: [facility] 05-20-2024 09:20-0400 Diastolic blood pressure 67 mm[Hg] Dr. Kwabena Menjivar MD Work Phone: 3(930)965-870911 [place] [address] 05-20-2024 09:20-0400 Heart rate 59 /min Dr. Kwabena Menjivar MD Work Phone: 3(348)774-116411 [place] [address] 05-20-2024 09:20-0400 Systolic blood pressure 136 mm[Hg] Dr. Kwabena Menjivar MD Work Phone: 7(953)698-007221 [place] [address] 05-20-2024 06:00-0400 Body mass index (BMI) [Ratio] 24.3 kg/m2 Dr. Kwabena Menjivar MD Work Phone: 7(690)485-644811 [place] [address] 05-20-2024 06:00-0400 Body temperature 97.2 [degF] Dr. Kwabena Menjivar MD Work Phone: 2(208)222-76[address] [place] [address] 05-20-2024 06:00-0400 Body weight [address] Kwabena Menjivar MD Work Phone: [facility] 05-20-2024 06:00-0400 Respiratory rate 16 /min Dr. Kwabena Menjivar MD Work Phone: 3(548)950-779911 [place] [address] 05-20-2024 06:00-0400 SaO2% (BldA) [Mass fraction] 97 % Dr. Kwabena Menjivar MD Work Phone: [facility] 05-12-2024 08:43-0400 Body height [address] Kwabena Menjivar MD Work Phone: 0(226)[phone] [place] [address] 04-27-2024 14:23-0400 Body temperature 97.8 [degF] Dr. Kwabena Menjivar MD Work Phone: [facility] 04-27-2024 14:23-0400 Diastolic blood pressure 64 mm[Hg] Dr. Kwabena Menjivar MD Work Phone: [facility] 04-27-2024 14:23-0400 Heart rate 65 /min Dr. Kwabena Menjivar MD Work Phone: 1(417)[phone] [address] 04-27-2024 14:23-0400 Respiratory rate 18 /min Dr. Kwabena Menjivar MD Work Phone: 5(152)[phone] [address] 04-27-2024 14:23-0400 SaO2% (BldA) [Mass fraction] 92 % Dr. Kwabena Menjivar MD Work Phone: 4(111)[phone] [place] [address] 04-27-2024 14:23-0400 Systolic blood pressure 126 mm[Hg] Dr. Kwabena Menjivar MD Work Phone: 9(956)[phone] [place] [address] 04-26-2024 18:24-0400 Inhaled oxygen flow rate 3 L/min Dr. Kwabena Menjivar MD Work Phone: 3(761)[phone] [address] [place] [address] 04-26-2024 15:54-0400 Body height 172.[address] Kwabena Menjivar MD Work Phone: 5(336)525-730631 [address] 04-26-2024 15:54-0400 Body mass index (BMI) [Ratio] 25.3 kg/m2 Dr. Kwabena Menjivar MD Work Phone: 5(117)759-080821 [place] [address] 04-26-2024 15:54-0400 Body weight 75.[address] Kwabena Menjivar MD Work Phone: 5(173)480-947731 [address] 04-19-2024 13:05-0400 Body temperature 97.8 [degF] Dr. Kwabena Menjivar MD Work Phone: 4(964)530-959931 [address] 04-19-2024 13:05-0400 Diastolic blood pressure 75 mm[Hg] Dr. Kwabena Menjivar MD Work Phone: [facility] 04-19-2024 13:05-0400 Heart rate 65 /min Dr. Kwabena Menjivar MD Work Phone: [facility] 04-19-2024 13:05-0400 Respiratory rate 16 /min Dr. Kwabena Menjivar MD Work Phone: 4(652)607-763521 [place] [address] 04-19-2024 13:05-0400 SaO2% (BldA) [Mass fraction] 99 % Dr. Kwabena Menjivar MD Work Phone: 7(734)893-988721 [place] [address] 04-19-2024 13:05-0400 Systolic blood pressure 133 mm[Hg] Dr. Kwabena Menjivar MD Work Phone: 6(257)812-542311 [place] [address] 04-19-2024 10:47-0400 Body height 172.[address] Kwabena Menjivar MD Work Phone: 0(350)520-510621 [place] [address] 04-19-2024 10:47-0400 Body mass index (BMI) [Ratio] 23.9 kg/m2 Dr. Kwabena Menjivar MD Work Phone: 4(890)372-272831 [address] 04-19-2024 10:47-0400 Body weight 71.[address] Kwabena Menjivar MD Work Phone: 3(822)426-414821 [place] [address] 02-26-2024 12:31-0500 Body temperature 98.6 [degF] Dr. Kwabena Menjivar MD Work Phone: 1(111)173-133121 [place] [address] 02-26-2024 12:31-0500 Diastolic blood pressure 85 mm[Hg] Dr. Kwabena Menjivar MD Work Phone: 8(236)632-460321 [place] [address] 02-26-2024 12:31-0500 Heart rate 62 /min Dr. Kwabena Menjivar MD Work Phone: 4(292)332-759011 [place] [address] 02-26-2024 12:31-0500 Respiratory rate 16 /min Dr. Kwabena Menjivar MD Work Phone: [facility] 02-26-2024 12:31-0500 SaO2% (BldA) [Mass fraction] 99 % Dr. Kwabena Menjivar MD Work Phone: [facility] 02-26-2024 12:31-0500 Systolic blood pressure 164 mm[Hg] Dr. Kwabena Menjivar MD Work Phone: [facility] 02-26-2024 09:48-0500 Body mass index (BMI) [Ratio] 25.8 kg/m2 Dr. Kwabena Menjivar MD Work Phone: [facility] 02-26-2024 09:48-0500 Body weight 77.[address] Kwabena Menjivar MD Work Phone: [facility] Encounters Encounter Date Encounter Type Care Provider Facility Start: 10-18-2024 Evaluation and management of inpatient Dr. Kwabena Menjivar MD Work Phone: -[facility] Start: 10-18-2024 Dr. Jacoby Heath DO -[facility] Work Phone: Start: 09-04-2024 ambulatory Kwabena Fuller lity:[facility] Start: 09-04-2024 Keven Etienne MD - [facility] N[facility] Start: 08-29-2024 End: 08-29-[address] Kwabena Menjivar MD Work Phone: -[facility] Start: 08-29-2024 End: 08-29-2024 Dr. Keven Etienne MD -[facility] Work Phone: Start: 08-17-2024 ambulatory Kwabena Fuller lity:[facility] Start: 08-14-2024 End: 08-14-[address] Kwabena Menjivar MD Work Phone: -[facility] Start: 08-14-2024 End: 08-14-2024 Keven Etienne MD [...] Phone: Start: 08-06-2024 Dr. Keanu escamilla DO -[facility] Work Phone: Start: 08-06-2024 ambulatory [...] 3 Start: 08-05-2024 Dr. Yu Bradley MD -[facility] Work Phone: Start: 08-03-2024 End: 08-03-2024 Dr. David Granados MD -[facility] Start: 08-03-2024 End: 08-03-[address] Kwabena Menjivar MD Work Phone: [facility] Work Phone: Start: 07-20-2024 End: 07-20-[address] Kwabena Menjivar MD Work Phone: [facility] Work Phone: Start: 07-20-2024 End: 07-20-2024 Dr. Kwabena Menjivar MD -[facility] Start: 07-20-2024 End: 07-20-2024 ambulatory Kwabena Menjivar Facility:[facility] Start: 07-11-2024 ambulatory Keven Etienne OLS Fa cility:[facility] Start: 07-11-2024 Keven AWAD L - Yaakov Start: 07-04-2024 ambulatory Edwarfrannyjuan alberto Etienne OLS Fa cility:[facility] Start: 07-04-2024 Keven Nuno Start: 06-27-2024 ambulatory Kwabena Menjivar [facility]ity[facility] Start: 06-26-2024 ambulatory Edwarfrannyjuan alberto Etienne OLS Fa cility:[facility] Start: 06-26-2024 Keven [place] Renuka - Yaakov Start: 06-21-2024 End: 06-21-[address] Kwabena Menjivar MD Work Phone: [facility] Start: 06-21-2024 End: 06-21-2024 [facility] Work Phone: Start: 06-19-2024 ambulatory Keven Etienne OLS Fa cility:[facility] Start: 06-19-2024 Keven [place] Renuka - Yaakov Start: 06-12-2024 End: 06-12-[address] Kwabena Menjivar MD Work Phone: [facility] Start: 06-12-2024 End: 06-12-2024 Keven MontanaRenuka Nuno Start: 06-05-2024 ambulatory Keven KIRKPATRICK Fa cility:[facility] Start: 06-05-2024 Keven [place] Renuka Nuno Start: 06-01-2024 End: 06-01-2024 Dr. Ciro Diego MD -[facility] Work Phone: Start: 06-01-2024 End: 06-01-2024 ambulatory Ciro Diego Facility:[facility] Start: 05-30-2024 End: 05-30-[address] Kwabena Menjivar MD Work Phone: [facility] Work Phone: Start: 05-30-2024 End: 05-30-2024 Angelika Nowak NP-C -[facility] Work Phone: Start: 05-29-2024 ambulatory Keven Etienne OLS Fa cility:[facility] Start: 05-29-2024 Registered Referred Keven Etienne MD -[facility] Start: 05-29-2024 Keven Etienne MD - [facility] Yaakov Start: 05-25-2024 End: 05-25-2024 Patient encounter procedure Sonia Isbell NP-C -Radiology, [facility] Work Phone: Start: 05-25-2024 End: 05-25-[address] Kwabena Menjivar MD Work Phone: [facility] Work Phone: Start: 05-25-2024 End: 05-25-2024 Sonia Isbell ONCOLOGY CONSULTANT-C -Radiology [facility] Work Phone: Start: 05-25-2024 End: 05-25-2024 Patient encounter procedure Sonia Isbell NP-C -[facility] Work Phone: Start: 05-25-2024 End: 05-25-2024 Sonia Isbell ONCOLOGY CONSULTANT-C -[facility] Work Phone: Start: 05-25-2024 End: 05-25-2024 ambulatory Sonia Isbell Facility[facility] Start: 05-25-2024 End: 05-25-2024 ambulatory Sonia Isbell Facility:[facility] Start: 05-23-2024 End: 05-23-[address] Kwabena Menjivar MD Work Phone: [facility] Work Phone: Start: 05-23-2024 End: 05-23-2024 Dr. Keven Etienne MD -[facility] Work Phone: Start: 05-22-2024 End: 05-22-[address] Kwabena Menjivar MD Work Phone: [facility] Work Phone: Start: 05-22-2024 Registered Referred Keven MontanaRenuka Nuno Start: 05-22-2024 End: 05-22-2024 Keven Nuno Start: 05-11-2024 Non-patient / Non-visit Dr. Ciro Diego MD -[facility] Start: 05-11-2024 Dr. Ciro Diego MD -[facility] Start: 05-09-2024 Non-patient / Non-visit Dr. Corazon Wright DO [facility] Work Phone: Start: 05-09-2024 Dr. Corazon Wright [facility] Work Phone: Start: 05-08-2024 Non-patient / Non-visit Dr. Corazon Wright DO [facility] Work Phone: Start: 05-08-2024 Dr. Corazon Wright [facility] Work Phone: Start: 05-05-2024 Non-patient / Non-visit Dr. Corazon Wright DO [facility] Work Phone: Start: 05-05-2024 Dr. Corazon Wright [facility] Work Phone: Start: 05-03-2024 Non-patient / Non-[facility] Work Phone: Start: 05-03-2024 Dr. Corazon Wright [facility] Work Phone: Start: 05-02-2024 Non-patient / Non-visit [facility] Work Phone: Start: 05-02-2024 Dr. Corazon Wright [facility] Work Phone: Start: 05-01-2024 Non-patient / Non-visit Dr. Corazon Wright [facility] Work Phone: Start: 05-01-2024 Dr. Corazon Wright [facility] Work Phone: Start: 04-30-2024 End: 04-30-2024 ambulatory David Granados Facility:[facility] Start: 04-30-2024 End: 04-30-2024 Non-patient / Non-visit Dr. David Granados [facility] Work Phone: Start: 04-30-2024 End: 04-30-2024 Dr. David Granados [facility] Work Phone: Start: 04-28-2024 Non-patient / Non-visit Dr. Corazon Wright [facility] Work Phone: Start: 04-28-2024 Dr. Corazon Wright [facility] Work Phone: Start: 04-27-2024 Non-patient / [facility] Start: 04-27-2024 Awa [id number] Start: 04-27-2024 ambulatory Kwabena Fuller lity:[facility] Start: 04-27-2024 End: 05-20-2024 Evaluation and management of inpatient Dr. Corazon Wright -Rehab Unit Work Phone: Start: 04-27-2024 End: 05-20-2024 Dr. Corazon Wright -Rehab Unit Work Phone: Start: 04-27-2024 Non-patient / Non-visit Dr. Harish Baxter [facility] Work Phone: Start: 04-27[facility] Start: 04-26-2024 Non-patient / Non-visit Dr. Harish Baxter MD [facility] Work Phone: Start: 04-26-2024 Dr. Harish Baxter MD [facility] Work Phone: Start: 04-26-2024 Non-patient / Non-visit Dr. Ciro Diego MD [facility] Start: 04-26-2024 Dr. Ciro Diego MD [facility] Start: 04-25-2024 Non-patient / Non-visit Dr. Harish Baxter MD [facility] Work Phone: Start: 04-25-2024 Dr. Harish Nicolas [facility] Work Phone: Start: 04-24-2024 Non-patient / Non-visit Dr. Harish Baxter MD [facility] Work Phone: Start: 04-24-2024 Dr. Harish Baxter MD [facility] Work Phone: Start: 04-24-2024 End: 04-24-2024 ambulatory David Granados Facility:[facility] Start: 04-24-2024 End: 04-24-2024 Non-patient / Non-visit Dr. David Granados MD [facility] Work Phone: Start: 04-24-2024 End: 04-24-2024 Dr. David Granados MD [facility] Work Phone: Start: 04-23-2024 Non-patient / Non-visit Dr. Keanu Alfred DO [facility] Work Phone: Start: 04-23-2024 Dr. Keanu Alfred [facility] Work Phone: Start: 04-22-2024 Non-patient / Non-visit Dr. Keanu Alfred [facility] Work Phone: Start: 04-22-2024 Dr. Keanu CAMACHOWo [facility] Work Phone: Start: 04-21-2024 Non-patient / Non-visit Dr. Ciro Diego MD -[facility] Start: 04-21-2024 Dr. Ciro Diego MD -[facility] Start: 04-21-2024 ambulatory Kwabena Fuller lity:[facility] Start: 04-21-2024 Non-patient / Non-visit Dr. Keanu Alfred DO [facility] Work Phone: Start: 04-21-2024 Dr. Keanu CAMACHO [facility] Work Phone: Start: 04-20-2024 ambulatory Yas Godinez Facility:[facility] Start: 04-20-2024 End: 04-27-2024 Evaluation and management of inpatient Dr. Harish Baxter MD -[facility] Unit Work Phone: Start: 04-20-2024 End: 04-27-2024 Dr. Harish Baxter MD -[facility] U nit Work Phone: Start: 04-20-2024 Non-patient / Non-visit Dr. Keanu Alfred DO [facility] Work Phone: Start: 04-20-2024 Dr. Keanu CAMACHO [facility] Work Phone: Start: 04-19-2024 ambulatory Kwabena Fuller lity:[facility] Start: 04-19-2024 Evaluation and management of inpatient Dr. Keanu Alfred DO -[facility] Work Phone: Start: 04-19-2024 Non-patient / Non-visit Dr. Danette Sargent MD -[facility] Start: 04-19-[address] Akhil Menjivar MD Work Phone: [facility] Work Phone: Start: 04-19-2024 Dr. Danette Sargent MD -[facility] Start: 03-08-2024 End: 03-08-[address] David Granados MD -[facility] Start: 03-08-2024 End: 03-08-2024 ambulatory Kwabena Menjivar Facility:[facility] Start: 02-26-2024 End: 02-26-2024 Emergency department patient visit Dr. Asher Flores MD -Emergency Department Work Phone: Start: 10-22-2022 End: 10-22-2022 ambulatory [facility] Work Phone: Start: 10-22-2022 End: 10-22-2022 Patient encounter procedure [facility]-Laboratory, [place] Work Phone: Start: 10-14-2022 End: 10-14-2022 ambulatory [facility] Work Phone: Start: 10-14-2022 End: 10-14-2022 Discharged Recurring [facility]-Physical Therapy Work Phone: Start: 08-24-2022 End: 08-24-2022 ambulatory [facility] Work Phone: Start: 08-24-2022 End: 08-24-2022 Patient encounter procedure [facility]-Radiology, [place] Work Phone: Start: 09-14-2016 End: 09-15-2016 Emergency department patient visit BAO CERVANTES Facility:B Start: 09-12-2016 End: 09-12-2016 Emergency department patient visit JORGE L CecilioEvette CARTER Facility:[facility] Procedures Date Procedure Procedure Detail Performing Clinician [...] of inter national normalized ratio Dr. Kwabena Menjiavr MD Work Phone: Start: 04-19-2024 CT of [...] Activity Detail Author Start: 10-18-2024 Referral to finish machine tender [facility] Start: 10-18-2024 Urinalysis complete panel - Urine [facility] Start: 10-18-2024 Verification routine [facility] Start: 10-18-2024 Admission procedure [facility] Start: 10-18-2024 Hospital admission, emergency, from emergency room, medical nature [facility] Start: 08-11-2024 [facility] Start: 08-09-[address] [facility] Start: 08-06-2024 Admission procedure [facility] Start: 08-05-2024 Following clinical pathway protocol [facility] Start: 08-05-2024 Assessment of risk o f venous thromboembolism [facility] Start: 08-05-2024 Insertion of cathete r into peripheral vein [facility] Start: 08-05-2024 Providing care accor ding to standard [facility] Start: 08-05-2024 Provision of activity privileges [facility] Start: 08-05-2024 Referral to occupational therapist [facility] Start: 08-05-2024 Referral to service [facility] Start: 08-05-2024 Speech therapy assessment [facility] Start: 08-05-2024 [facility] Start: 08-05-2024 Verification routine [facility] Start: 08-05-2024 Admission procedure [facility] Start: 08-05-2024 Hospital admission, emergency, from emergency room, medical nature [facility] Start: 08-05-2024 Referral to service [facility] Start: 08-05-2024 End: 08-05-2024 [facility] Start: 08-05-2024 Patient referral to dietitian [facility] Start: 08-03-2024 X-ray of cervical spine [facility] Start: 08-03-2024 XR Cervical spine 2 or 3 Views [facility] Start: 05-25-2024 Patient referral [facility] Work Phone: Start: 05-20-[address] [facility] Start: 05-15-2024 [facility] Start: 05-12-2024 [facility] Start: 05-10-2024 [facility] Start: 05-09-2024 [facility] Start: 05-09-2024 End: 05-09-2024 [facility] Start: 05-08-2024 Introduction of urinary catheter [facility] Start: 05-08-2024 Urinary bladder training [facility] Start: 05-02-2024 [facility] Start: 05-01-2024 [facility] Start: 04-29-2024 [facility] Start: 04-28-2024 Application of inter mittent pneumatic compression device [facility] Start: 04-27-2024 Speech therapy assessment [facility] Start: 04-27-2024 Scheduling [facility] Start: 04-27-2024 Wound care [facility] Start: 04-27-2024 Referral to service [facility] Start: 04-27-2024 Admission procedure [facility] Start: 04-27-2024 Measuring intake and output [facility] Start: 04-27-2024 Patient referral to dietitian [facility] Start: 04-27-2024 Vital signs measurements [facility] Start: 04-27-2024 End: 04-27-2024 [facility] Start: 04-27-2024 Referral to occupational therapist [facility] Start: 04-27-2024 Catheterization of vein [facility] Start: 04-27-[address] [facility] Start: 04-27-2024 Speech therapy assessment [facility] Start: 04-26-2024 [facility] Start: 04-26-2024 Application of device [facility] Start: 04-26-2024 Referral to occupational therapist [facility] Start: 04-26-2024 Assessment of risk o f venous thromboembolism [facility] Start: 04-26-2024 Following clinical pathway protocol [facility] Start: 04-26-2024 Introduction of urinary catheter [facility] Start: 04-26-2024 Measuring intake and output [facility] Start: 04-26-2024 Neurovascular assessment [facility] Start: 04-26-2024 Oxygen therapy [facility] Start: 04-26-[address] [facility] Start: 04-26-2024 Provision of activity privileges [facility] Start: 04-26-2024 Referral to service [facility] Start: 04-26-2024 Taking patient vital signs [facility] Start: 04-26-2024 [facility] Start: 04-24-2024 Application of inter mittent pneumatic compression device [facility] Start: 04-20-2024 Admission procedure [facility] Start: 04-20-2024 Consultation [facility] Start: 04-20-2024 [facility] Start: 04-19-2024 Following clinical pathway protocol [facility] Start: 04-19-2024 Assessment of risk o f venous thromboembolism [facility] Start: 04-19-2024 Consultation [facility] Start: 04-19-2024 Insertion of cathete r into peripheral vein [facility] Start: 04-19-2024 Measuring intake and output [facility] Start: 04-19-2024 Providing care accor ding to standard [facility] Start: 04-19-2024 Provision of activity privileges [facility] Start: 04-19-2024 Referral to occupational therapist [facility] Start: 04-19-2024 Referral to service [facility] Start: 04-19-2024 [facility] Start: 04-19-2024 Hospital admission, emergency, from emergency room, medical nature [facility] Start: 04-19-2024 Admission procedure [facility] Start: 04-19-2024 [facility] Start: 04-19-2024 Oxygen therapy [facility] Start: 04-19-2024 End: 04-19-2024 [facility] Start: 04-19-2024 Patient referral to dietitian [facility] Start: 04-19-2024 [facility] Start: 02-26-2024 [facility] Start: 10-22-2022 [facility] Folate [Moles/volume ] in Serum or Plasma [facility] Magnesium measurement [facility] Mitotic spindle appa ratus Ab [Titer] in Serum or Plasma [facility] Neuronal nuclear Ab [Presence] in Serum by Immunofluorescence [facility] Nuclear Ab [Titer] i n Serum by Immunofluorescence [facility] Patient Education [facility] Work Phone: Patient referral [facility] Work Phone: Serum HEAVEN pattern [facility] Speckled nuclear Ab pattern [Titer] in Serum [facility] Troponin T.cardiac [ Mass/volume] in Serum or Plasma by High sensitivity method [facility] Troponin T.cardiac [ Mass/volume] in Serum or Plasma by High sensitivity method [facility] Troponin T.cardiac [ Mass/volume] in Serum or Plasma by High sensitivity method [facility] Payers Date Payer Category Payer Self-pay [id number] 2024 Private Health Insurance [id number] 2016 Medicare [id number] 2006 Medicare [id number] Unknown [id number] 2.16.8 40.1.650815.3.579.2.462 Unknown [id number] 2.16.8 40.1.729440.3.579.2.462 Unknown [id number] 2.16.8 40.1.286046.3.579.2.462 Unknown [id number] 2.16.8 40.1.142391.3.579.2.462 Unknown [id number] 2.16.8 40.1.156181.3.579.2.462 Unknown [id number] 2.16.8 40.1.168972.3.579.2.462 Unknown [id number] 2.16.8 40.1.046564.3.579.2.462 Unknown [id number] 2.16.8 40.1.525211.3.579.2.462 Unknown [id number] 2.16.8 40.1.190346.3.579.2.462 Unknown [id number] 2.16.8 40.1.912327.3.579.2.462 Unknown [id number] 2.16.8 40.1.052462.3.579.2.462 Unknown [id number] 2.16.8 40.1.527554.3.579.2.462 Unknown [id number] 2.16.8 40.1.193371.3.579.2.462 Unknown [id number] 2.16.8 40.1.008817.3.579.2.462 Unknown [id number] 2.16.8 40.1.451224.3.579.2.462 Unknown [id number] 2.16.8 40.1.245021.3.579.2.462 Unknown [id number] 2.16.8 40.1.758579.3.579.2.462 Unknown [id number] 2.16.8 40.1.701012.3.579.2.462 Unknown [id number] 2.16.8 40.1.156999.3.579.2.462 Unknown [id number] 2.16.8 40.1.588919.3.579.2.462 Unknown [id number] 2.16.8 40.1.797123.3.579.2.462 Unknown [id number] 2.16.8 40.1.135124.3.579.2.462 Unknown [id number] 2.16.8 40.1.815144.3.579.2.462 Unknown [id number] 2.16.8 40.1.032860.3.579.2.462 Unknown [id number] 2.16.8 40.1.209148.3.579.2.462 Unknown [id number] 2.16.8 40.1.681411.3.579.2.462 Unknown [id number] 2.16.8 40.1.698784.3.579.2.462 Unknown [id number] 2.16.8 40.1.165832.3.579.2.462 Unknown [id number] 2.16.8 40.1.161410.3.579.2.462 Unknown [id number] 2.16.8 40.1.413152.3.579.2.462 Unknown [id number] 2.16.8 40.1.894626.3.579.2.462 Unknown [id number] 2.16.8 40.1.884393.3.579.2.462 Unknown [id number] 2.16.8 40.1.199611.3.579.2.462 Unknown [id number] 2.16.8 40.1.386810.3.579.2.462 Unknown [id number] 2.16.8 40.1.613355.3.579.2.462 Unknown [id number] 2.16.8 40.1.732532.3.579.2.462 Unknown [id number] 2.16.8 40.1.364644.3.579.2.462 Unknown [id number] 2.16.8 40.1.268483.3.579.2.462 Unknown [id number] 2.16.8 40.1.908113.3.579.2.462 Unknown [id number] 2.16.8 40.1.144687.3.579.2.462 Unknown [id number] 2.16.8 40.1.109104.3.579.2.462 Unknown [id number] 2.16.8 40.1.587071.3.579.2.462 Unknown [id number] 2.16.8 40.1.448197.3.579.2.462 Unknown [id number] 2.16.8 40.1.954005.3.579.2.462 Unknown [id number] 2.16.8 40.1.450466.3.579.2.462 Unknown [id number] 2.16.8 40.1.782031.3.579.2.462 Unknown [id number] 2.16.8 40.1.858675.3.579.2.462 Unknown [id number] 2.16.8 40.1.897314.3.579.2.462 Unknown [id number] 2.16.8 40.1.242200.3.579.2.462 Unknown [id number] 2.16.8 40.1.550402.3.579.2.462 Unknown [id number] 2.16.8 40.1.468812.3.579.2.462 Unknown [id number] 2.16.8 40.1.153768.3.579.2.462 Unknown [id number] 2.16.8 40.1.554035.3.579.2.462 Unknown [id number] 2.16.8 40.1.525864.3.579.2.462 Unknown [id number] 2.16.8 40.1.630073.3.579.2.462 Unknown [id number] 2.16.8 40.1.401201.3.579.2.462 Unknown [id number] 2.16.8 40.1.899764.3.579.2.462 Unknown [id number] 2.16.8 40.1.750734.3.579.2.462 Unknown [id number] 2.16.8 [id number] Unknown [id number] 2.16.8 [id number] Unknown [id number] 2.16.8 [id number] Unknown [id number] 2.16.8 [id number] Unknown [id number] 2.16.8 [id number] Unknown [id number] 2.16.8 [id number] Social History Date Type Detail Facility Start: 03-28-[address] [facility] Start: 1940 Sex Assigned At Male [facility] Start: 04-19-2024 End: 10-17-2024 Tobacco smoking status NHIS Ex-smoker (finding) [facility] Start: 04-19-2024 End: 05-31-2024 Sex Male (finding) [facility] Medical Equipment Procedure Code Equipment [...] Discectomy, spine, cervical, anterior approach, with fusion [id number] FDA Start: 04-26-2024 Discectomy, spine, cervical, anterior [...] Assessment Result Facility 08-09-2024 Functional status Chair [facility] Work Phone: 05-20-2024 Functional status With Assist of 1 [facility] Work Phone: 05-18-2024 Functional status Chair;[facility] Work Phone: 04-27-2024 Functional status Bedside Commode;Back to bed [facility] Work Phone: Mental Status Date Assessment Result Facility 10-17-2024 Cognitive function Awake;Alert;A ppropriate;Fol lows Commands [facility] Work Phone: 08-11-2024 Cognitive function Awake;Alert;A ppropriate;Fol lows Commands [facility] Work Phone: 08-09-2024 Cognitive function [facility] Work Phone: 08-05-2024 Cognitive function Awake;Alert;A ppropriate;Fol lows Commands [facility] Work Phone: 05-20-2024 Cognitive function Voice[facility] Work Phone: 04-27-2024 Cognitive function Awake;Alert;A ppropriate;Fol lows Commands [facility] Work Phone: 04-27-2024 Cognitive function Voice/[facility] Work Phone: 04-19-2024 Cognitive function Voice/[facility] Work Phone: Clinical Notes 10-14-2022 to 08-11-2024 Note Date & Type Note Facility 08-11-2024 Radiology Diagnostic study note [facility] 08-09-2024 Consult note Note Date/Time August 09, 2024 9:31a m [facility] Medical Records Department [address] [place] [address] Counseling Note - Pharmacy 08/09/24929 MR#: [id number] Acct: [id number] Name: YAS ROSA Rep #:[id number] : 1940 83 From: Juju Elder PCP: Dr. Kwabena Menjivar MD Status :ADM IN Location: [address] Med Reconciliation Pharmacy Service has performed [...] Signature (if applicable): Date CC: ~ Signed [facility] Work Phone: 1(343) 183-285507-02-2025 Discharge summary Author Jacoby Mendoza [facility] Note Date/Time August 09, 2024 8:28a m [facility] Medical Records Department [address] [place] [address] Discharge Summary 08/09/24 0721 MR#: [id number] Acct: [id number] Name: YAS ROSA Rep #:[id number] : 1940 83 From: Jacoby Mendoza MD PCP: Dr. Kwabena Menjivar MD Status :ADM IN Location: [place] [id number] Providers Date of Admission: 08/06/24 Date of [...] Requested for PT OT eval and social worker clinical to assist with discharge planning. 08/09/2024; patient [...] Halfway Facility Charges/Coding Visit Charges Inpatient E&M: 93390 Disch Hosp >30min 08/09/24 0828 <Electronically signed by Jacoby Mendoza MD> Cosigner Signature (if applicable): CC: Dr. Kwabena Menjivar MD; Dr. Jacoby Mendoza MD~ Signed [facility] Work Phone: 1(173) 658-880607-02-2025 [facility]07-01-2025 Progress note Author Jacoby Mendoza [facility] Note Date/Time August 08, 2024 11:14 am [facility] Medical Records Department [address] [facility] [place] [address] Progress Note - Hospitalist 08/08/24754 MR#: [id number] Acct: [id number] Name: YAS ROSA Rep #:[id number] : 1940 83 From: Jacoby Mendoza MD PCP: Dr. Kwabena Menjivar MD Status :ADM IN Location: [place] [address]-1 Reason for Visit Reason for Visit: Diagnoses [...] Requested for PT OT eval and social worker clinical to assist with discharge planning. Plan is [...] 36 Minutes Charges/Coding Visit Charges Inpatient E&M: 48146 Subs Hosp L2 08/08/24 1114 <Electronically signed by Jacoby Mendoza MD> Cosigner Signature (if applicable): CC: ~ Signed [facility] Work Phone: 1(138) 169-124206-29-2025 Progress note Author Keanu Collier [facility] Note Date/Time August 06, 2024 4:03 pm [facility] Medical Records Department [address] [place] [address] Progress Note - Hospitalist 08/06/24 5925 MR#: [id number] Acct: [id number] Name: YAS ROSA Brigido Rep #:[id number] : 1940 83 From: Keanu Collier DO PCP: Dr. Kwabena Menjivar MD Status :ADM IN Location: [facility] [id number] Reason for Visit Reason for Visit: Diagnoses Dizziness and giddiness (08/06/24) Weakness (08/06/24) Subjective Subjective Patient was seen and examined today, he is a very poor informant, at first he told me he had not ever been in a residential and it turns out he was in a residential from May 20 of this year to July 14 of this year. Patient had cervical fusion here at [facility]-the surgery was performed on 04/26/2024 and it was a C3-6 ACDF. Following this, the patient went to the rehab unit at [facility] on 04/28/2024 and was discharged from the rehab unit on 05/20/2024 with admission to [facility] senior living facility. Information obtained from the patient's ex- [...] % (Auto) 48.2, Lymph % (Auto) 36.2, Levy% (Auto) 10.5 H, Eos % (Auto) 4.2, [...] OT, he will need placement in a senior living facility. #2 orthostatic hypotension with periods of [...] 35 minutes Charges/Coding Visit Charges Inpatient E&M: 94212 Subs Hosp L2 08/06/24 1604 <Electronically signed by Keanu Collier DO> Cosigner Signature (if applicable): CC: ~ Signed [facility] Work Phone: 1(799) 171-622206-28-2025 History and physical note Author Yu Bradley [facility] Note Date/Time August 05, 2024 4:11 pm [facility] Medical Records Department [address] [place] [address] H&P Exam - Hospitalist 08/05/24 1543 MR#: [id number] Acct: [id number] Name: YAS ROSA Rep #:[id number] : 1940 83 From: Yu Bradley MD PCP: Dr. Kwabena Menjivar MD Status :ADM IRINA Location: [facility] ZL306-5 HPI - General General Date of Admission: 08/05/24 Date of Service: 08/05/24 Chief Complaint: Generalized weakness, lightheaded on standing HPI Narrative YAS ROSA, is a 83-year-old male history of anxiety, IBS, depression, GERD, cervical myelopathy with surgery in April presented [facility] ED 08/05/2024 with complaint of worsening [...] at bedside, patient has been home from [place] for thepast couple weeks but has had [...] fever headache. No other new acute complaints [facility] Medical History Cervical myelopathy Angiectasia of large [...] bisacodyl 10 mg rectal suppository 10 mg PA X1 PRN Con stipation #0 ea 05/18/24 [...] tabs hydrocortisone acetate 25 mg 25 mg PA QHS #12 ea 05/25 Unknown Rx rectal suppository (Anusol-HC) Allergy/AdvReac Type Severity Reaction Status Date / Time No Known Allergies Allergy Verified 08/05/24 11:37 Family History Father , at 40 YOA of an ND Heart disease Other Hypertension Surgical History Status [...] % (Auto) 57.7, Lymph % (Auto) 31.4, Levy% (Auto) 8.2, Eos % (Auto) 2.0, Baso [...] Clarity Clear, Urine pH 7.0, Ur Specific [place] 1.010, Urine Protein Negative, Urine Glucose (UA) [...] IMPRESSION: No acute intracranial process. Reading Location: [facility] Cervical Spine CT 08/05/24 12:10 IMPRESSION: No acute cervical fracture or subluxations. Moderate multilevel degenerative changes of the cervical spine as above. Cervical ACDF spanning C3-C6 with interbody spacers. Reading Location: [facility] Assessment & Plan Assessment/Plan (1) Orthostatic lightheadedness: [...] Bradley MD Charges/Coding Visit Charges Inpatient E&M: 84568 Init Hosp L2 08/05/24 1611 <Electronically signed by Yu Bradley MD> Cosigner Signature (if applicable): CC: Dr. Kwabena Menjivar MD; Dr. Yu Bradley MD~ Signed [facility] Work Phone: 1(398) 844-860606-28-2025 Discharge summary Author Kayode Woods [facility] Note Date/Time August 05, 2024 2:50 pm [facility] Medical Records Department [address] [place] [address] Emergency Department Summary 08/05/24 MR#: [id number] Acct: [id number] Name: YAS ROSA Rep #:[id number] : 1940 83 From: Kayode Woods DO [...] stools denied any blood in his stool [facility] Medical History Cervical myelopathy Angiectasia of large [...] bisacodyl 10 mg rectal suppository 10 mg PA X1 PRN Con stipation #0 ea 05/18/24 [...] tabs hydrocortisone acetate 25 mg 25 mg PA QHS #12 ea 05/25 Unknown Rx rectal suppository (Anusol-HC) Allergy/AdvReac Type Severity Reaction Status Date / Time No Known Allergies Allergy Verified 08/05/24 11:37 Family History Father , at 40 YOA of an ND Heart disease Other Hypertension Surgical History Status [...] % (Auto) 57.7 Lymph % (Auto) 31.4 Levy % (Auto) 8.2 Eos % (Auto) 2.0 [...] Clarity Clear Urine pH 7.0 Ur Specific [place] 1.010 Urine Protein Negative Urine Glucose (UA) Normal Urine Ketones Negative Urine Occult Blood Negative Urine Nitrite Negative Urine Bilirubin Negative Urine Urobilinogen Normal Ur Leukocyte Esterase Negative Radiography Diagnostic Testing: Clinical Impression(s) from Imaging Studies Brain CT 08/05/24 12:10 IMPRESSION: No acute intracranial process. Reading Location: [facility] Cervical Spine CT 08/05/24 12:10 IMPRESSION: No acute cervical fracture or subluxations. Moderate multilevel degenerative changes of the cervical spine as above. Cervical ACDF spanning C3-C6 with interbody spacers. Reading Location: [facility] Discharge Plan Triage Chief Complaint: Weakness ED Provider: Kayode Woods Dx/Rx/DC Orders Clinical Impression: Orthostatic hypotension, Lightheadedness, Generalized weakness Prescriptions: No Action hydrocortisone acetate [Anusol-HC] 25 mg suppository 25 mg PA QHS Qty: 12 0RF calcium polycarbophil [FiberCon] [...] 0RF bisacodyl 10 mg Suppository 10 mg PA X1 PRN (Reason: Constipation) Qty: 0 0RF [...] MD [Primary Care Provider] - Print Language: [place] Islander Disposition Disposition: Acute Care Hospital [facility] What to do if you have Problems For any increased pain, shortness of breath, bleeding, nausea or vomiting, chestpain, or any unexpected problems, contact your Primary Care Provider. Call [facility] ([phone]) or report to the closest Emergency Room. Call 911 if necessary. 08/05/24 1450 <Electronically signed by Kayode Woods DO> Cosigner Signature (if applicable): CC: Dr. Kwabena Menjivar MD ~ Signed [facility] Work Phone: 1(590) 963-235006-28-2025 Radiology Diagnostic study [facility]06-28-2025 [facility] Date/Time August 05, 2024 2:50 pm [facility] Medical Records Department [address] [place] [address] Emergency Department Summary 08/05/24 MR#: [id number] Acct: [id number] Name: YAS ROSA Rep #:[id number] : 1940 83 From: Kayode Woods DO [...] stools denied any blood in his stool [facility] Medical History Cervical myelopathy Angiectasia of [...] bisacodyl 10 mg rectal suppository 10 mg PA X1 PRN Con stipation #0 ea 05/18/24 [...] tabs hydrocortisone acetate 25 mg 25 mg PA QHS #12 ea 05/25 Unknown Rx rectal suppository (Anusol-HC) Allergy/AdvReac Type Severity Reaction Status Date / Time No Known Allergies Allergy Verified 08/05/24 11:37 Family History Father , at 40 YOA of an ND Heart disease Other Hypertension Surgical History Status [...] % (Auto) 57.7 Lymph % (Auto) 31.4 Levy % (Auto) 8.2 Eos % (Auto) 2.0 [...] Clarity Clear Urine pH 7.0 Ur Specific [place] 1.010 Urine Protein Negative Urine Glucose (UA) Normal Urine Ketones Negative Urine Occult Blood Negative Urine Nitrite Negative Urine Bilirubin Negative Urine Urobilinogen Normal Ur Leukocyte Esterase Negative Radiography Diagnostic Testing: Clinical Impression(s) from Imaging Studies Brain CT 08/05/24 12:10 IMPRESSION: No acute intracranial process. Reading Location: [facility] Cervical Spine CT 08/05/24 12:10 IMPRESSION: No acute cervical fracture or subluxations. Moderate multilevel degenerative changes of the cervical spine as above. Cervical ACDF spanning C3-C6 with interbody spacers. Reading Location: [facility] Discharge Plan Triage Chief Complaint: Weakness ED Provider: Kayode Woods Dx/Rx/DC Orders Clinical Impression: Orthostatic hypotension, Lightheadedness, Generalized weakness Prescriptions: No Action hydrocortisone acetate [Anusol-HC] 25 mg suppository 25 mg PA QHS Qty: 12 0RF calcium polycarbophil [FiberCon] [...] 0RF bisacodyl 10 mg Suppository 10 mg PA X1 PRN (Reason: Constipation) Qty: 0 0RF [...] MD [Primary Care Provider] - Print Language: [place] Islander Disposition Disposition: Acute Care [facility] What to do if you have Problems For any increased pain, shortness of breath, bleeding, nausea or vomiting, chestpain, or any unexpected problems, contact your Primary Care Provider. Call [facility] ([phone]) or report to the closest Emergency Room. Call 911 if necessary. 08/05/24 2869 <Electronically signed by Kayode Woods DO> Cosigner Signature (if applicable): CC: Dr. Kwabena Menjivar MD ~ Signed [facility] Work Phone: [phone] Radiology Diagnostic study [facility]06-26-2025 Evaluation note* Diagnosis Onset Date [...] near syncope chronic October 18, 2024 4:05am [facility] Work Phone: [phone] Radiology Diagnostic study [facility]04-17-2025 Radiology Diagnostic study note [facility] Imaging Services [address] [place], [place] [address] Abdomen Single View MR#: [id number] Acct: [id number] Name: YAS ROSA Rep #: [id number] : 1940 M 83 From: And mili Narvaez DO PCP: Dr. Kwabena Menjivar MD Status: REG CLI Study:Abdomen Single View Date of Exam: 05/25/24 Exam# [id number] Ordering Dr: Sonia Isbell ONCOLOGY CONSULTANT-C PROCEDURE: Abdominal radiographs, two views 05/25/2024 REASON [...] concerning for developing fecal impaction. [facility]: LEONIDAS Isbell; Dr. Kwabena Menjivar MD ~ Employee Development Specialist: Signed [facility]04-17-2025 Evaluation note* Diagnosis Onset Date Resolution [...] Orthostatic lightheadedness resolved August 06, 2024 1:22pm [facility] Work Phone: 1(218) 857-387504-10-2025 Discharge summary Author Mariano Sernaok [facility] Note Date/Time May 18, 2024 9:0 3am [facility] Medical Records Department [address] [place] [address] Transfer to [facility] MR#: [id number] Acct: [id number] Name: YSA ROSA Rep #:[id number] : 1940 83 From: Mariano Chan MD PCP: Dr. Kwabena Menjivar MD Status :ADM IN Certification of patient admission REQUIRED AT TIME OF ADMISSION. I CERTIFY THAT POST-HOSPITAL ECF SERVICES ARE REQUIRED TO BE GIVEN ON AN IN-PATIENT BASIS BECAUSE OF THE ABOVE NAMED PATIENT'S NEED FOR LONGTERM CARE ON A CONTINUING BASIS FOR THE CONDITION(S) FOR WHICH HE/SHE WAS RECEIVING IN-PATIENT HOSPITAL SERVICES PRIOR TO HIS/HER TRANSFER TO THE COUNTS INCLUDE 234 BEDS AT THE [facility]. 05/18/24 0903<Electronically signed by Mariano Chan MD> Diet Diet Order/Speech Therapy: 05/09/24 11:34 Diet: Regular - General Food consistency:: Pureed Liquid Consistency:: Payette/Mildly Thick Type of Dietary Supplement:: Magic Cup [...] Recommendations Dietitian Recommendations/Changes: Continue regular diet per TANK FURNACE OPERATOR consistency/recommendations. Continue 120ml EPHP 4x daily with medpass, prefers vanilla or strawberry. Adjust to vanilla magic cup with dinner. Will order vanilla fortified pudding with breakfast and lunch. Will monitor weight trends. 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 TANK FURNACE OPERATOR informally assessed pt vocal quality through the [...] sustained manner appropriately despite max cues from TANK FURNACE OPERATOR. Pt. would often substitute /sh/ for /s/. Maximum Phonation of /ah/ -Sustained /ah/: average of 10.73 seconds IMPAIRED Findings indicate poor breath support and glottis sufficiency. Discharge Plan Admission Admit Date/Time: 04/27/24 15:15 Primary Reason for Your Visit: Debility. Attending Provider: Corazon Wright Primary Care Provider: Kwabena Menjivar Instructions Additional Instructions / Restrictions: Discharge to [facility] 05/20/2024, skilled. Discharge Orders/Prescriptions Prescriptions: New midodrine [...] 0RF bisacodyl 10 mg Suppository 10 mg PA X1 PRN (Reason: Constipation) Qty: 0 0RF [...] applicable): CC: Dr. Kwabena Menjivar MD ~ [facility] Work Phone: 1([phone]) 100-417804-10-2025 Discharge summary Author [facility] Note Date/Time May 18, 2024 9:0 2am [facility] Medical Records Department [address] [place] [address] Discharge Summary 05/18/24 0852 MR#: [id number] Acct: [id number] Name: YAS ROSA Rep #:[id number] : 1940 83 From: Mariano Chan MD PCP: Dr. Kwabena Menjivar MD Status :ADM IN Location: [place] [address] Providers Date of Admission: 04/27/24 Primary Care [...] bisacodyl 10 mg rectal suppository 10 mg PA X1 PRN Constipation #0 ea 05/18/24 carboxymethylcellulose [...] C-collar over the next week. Discharge to [facility] 05/20/2024, skilled. Physical Exam Const alert General [...] Discharge instructions: No Additional Instructions: Discharge to [facility] 05/20/2024, skilled. Meaningful Use Info Meaningful Use [...] Instructions Additional Instructions / Restrictions: Discharge to [facility] 05/20/2024, skilled. Discharge Orders/Prescriptions Prescriptions: New midodrine [...] 0RF bisacodyl 10 mg Suppository 10 mg PA X1 PRN (Reason: Constipation) Qty: 0 0RF [...] Menjivar MD; Dr. Mariano Chan MD~ Signed [facility] Work Phone: 1(649) 574-547904-10-2025 Discharge summary [facility] Medical Records Department [address] [place] [address] Transfer to [facility] MR#: [id number] Acct: [id number] Name: YSA ROSA Rep #:[id number] : 1940 83 From: Mariano Chan MD PCP: Dr. Kwabena Menjivar MD Status :ADM IN Certification of patient admission REQUIRED AT TIME OF ADMISSION. I CERTIFY THAT POST-HOSPITAL ECF SERVICES ARE REQUIRED TO BE GIVEN ON AN IN-PATIENT BASIS BECAUSE OF THE ABOVE NAMED PATIENT'S NEED FOR LONGTERM CARE ON A CONTINUING BASIS FOR THE CONDITION(S) FOR WHICH HE/SHE WAS RECEIVING IN-PATIENT HOSPITAL SERVICES PRIOR TO HIS/HER TRANSFER TO THE COUNTS INCLUDE 234 BEDS AT THE [facility]. 05/18/24 0903 Diet Diet Order/Speech Therapy: 05/09/24 11:34 Diet: Regular - General Food consistency:: Pureed Liquid Consistency:: Payette/Mildly Thick Type of Dietary Supplement:: Magic Cup [...] Recommendations Dietitian Recommendations/Changes: Continue regular diet per TANK FURNACE OPERATOR consistency/recommendations. Continue 120ml EPHP 4x daily with medpass, prefers vanilla or strawberry. Adjust to vanilla magic cup with dinner. Will order vanilla fortified pudding with breakfast and lunch. Will monitor weight trends. 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 TANK FURNACE OPERATOR informally assessed pt vocal quality through the [...] sustained manner appropriately despite max cues from TANK FURNACE OPERATOR. Pt. would often substitute /sh/ for /s/. Maximum Phonation of /ah/ -Sustained /ah/: average of 10.73 seconds IMPAIRED Findings indicate poor breath support and glottis sufficiency. Discharge Plan Admission Admit Date/Time: 04/27/24 15:15 Primary Reason for Your Visit: Debility. Attending Provider: Corazon Wright Primary Care Provider: Kwabena Menjivar Instructions Additional Instructions / Restrictions: Discharge to [facility] 05/20/2024, skilled. Discharge Orders/Prescriptions Prescriptions: New midodrine [...] 0RF bisacodyl 10 mg Suppository 10 mg PA X1 PRN (Reason: Constipation) Qty: 0 0RF [...] applicable): CC: Dr. Kwabena Menjivar MD ~ [facility]04-10-2025 Discharge summary [facility] Medical Records Department [address] [place] [address] Discharge Summary 05/18/24 0852 MR#: [id number] Acct: [id number] Name: YAS ROSA Rep #:[id number] : 1940 83 From: Mariano Chan MD PCP: Dr. Kwabena Menjivar MD Status :ADM IN Location: [place] [address] Providers Date of Admission: 04/27/24 Primary Care [...] bisacodyl 10 mg rectal suppository 10 mg PA X1 PRN Constipation #0 ea 05/18/24 carboxymethylcellulose [...] C-collar over the next week. Discharge to [facility] 05/20/2024, skilled. Physical Exam Const alert General [...] Discharge instructions: No Additional Instructions: Discharge to [facility] 05/20/2024, skilled. Meaningful Use Info Meaningful Use [...] Instructions Additional Instructions / Restrictions: Discharge to [facility] 05/20/2024, skilled. Discharge Orders/Prescriptions Prescriptions: New midodrine [...] 0RF bisacodyl 10 mg Suppository 10 mg PA X1 PRN (Reason: Constipation) Qty: 0 0RF [...] Menjivar MD; Dr. Mariano Chan MD~ Signed [facility]04-10-2025 [facility] Progress note Author Mariano [facility] Note Date/Time May 17, 2024 8:15 am [facility] Medical Records Department [address] [facility] [place] [address] Progress Note - Rehab 05/17/24812 MR#: [id number] Acct: [id number] Name: YAS ROSA Rep #:[id number] : 1940 83 From: Mariano Chan MD PCP: Dr. Kwabena Menjivar MD Status :ADM IN Location: [place] [address] Subjective Subjective Patient seen, examined. He is [...] Cosigner Signature (if applicable): CC: ~ Signed [facility] Work Phone: 1(586) 881-903104-09-2025 Progress note [facility] Medical Records Department [address] [place] [address] Progress Note - Rehab 05/17/24812 MR#: [id number] Acct: [id number] Name: YAS ROSA Rep #:[id number] : 1940 83 From: Mariano Chan MD PCP: Dr. Kwabena Menjivar MD Status :ADM IN Location: [place] [address] Subjective Subjective Patient seen, examined. He is [...] Cosigner Signature (if applicable): CC: ~ Signed [facility]04-08-2025 Progress note Author Mariano Chan [facility] Note Date/Time May 16, 2024 8:25 am [facility] Medical Records Department [address] [place] [address] Progress Note - Rehab 05/16/24820 MR#: [id number] Acct: [id number] Name: YAS RSOA Brigido Rep #:[id number] : 1940 83 From: Mariano Chan MD PCP: Dr. Kwabena Menjivar MD Status :ADM IN Location: [place] [address] Subjective Subjective Patient seen, examined. Elayne from OT present. Milan is out of c-collar for breakfast. He was able to walk to the bathroom today instead of using wheelchair, plan is discharge to [facility] in 4 days. Objective Data Objective [...] Cosigner Signature (if applicable): CC: ~ Signed [facility] Work Phone: 1(701) 831-469804-08-2025 Progress note [facility] Medical Records Department [address] [place] [address] Progress Note - Rehab 05/16/24820 MR#: [id number] Acct: [id number] Name: YAS ROSA Rep #:[id number] : 1940 83 From: Mariano Chan MD PCP: Dr. Kwabena Menjivar MD Status :ADM IN Location: [place] [address] Subjective Subjective Patient seen, examined. Elayne from OT present. Milan is out of c-collar for breakfast. He was able towalk to the bathroom today instead of using wheelchair, plan is discharge to [facility] in 4 days. Objective Data Objective [...] Cosigner Signature (if applicable): CC: ~ Signed [facility]04-07-2025 Progress note Author Mariano Chan [facility] Note Date/Time May 15, 2024 7:49 am [facility] Medical Records Department [address] [place] [address] Progress Note - Rehab 05/15/24 0747 MR#: [id number] Acct: [id number] Name: YAS ROSA Rep #:[id number] : 1940 83 From: Mariano Chan MD PCP: Dr. Kwabena Menjivar MD Status :ADM IN Location: [place] [address] Subjective Subjective Patient seen, examined. He told [...] Cosigner Signature (if applicable): CC: ~ Signed [facility] Work Phone: 1(497) 194-374304-07-2025 Progress note [facility] Medical Records Department [address] [place] [address] Progress Note - Rehab 05/15/24 0747 MR#: [id number] Acct: [id number] Name: YAS ROSA Rep #:[id number] : 1940 83 From: Mariano Chan MD PCP: Dr. Kwabena Menjivar MD Status :ADM IN Location: [place] [address] Subjective Subjective Patient seen, examined. He told [...] Cosigner Signature (if applicable): CC: ~ Signed [facility]04-04-2025 Progress note Author Mariano Chan [facility] Note Date/Time May 12, 2024 8:08 am [facility] Medical Records Department [address] [place] [address] Progress Note - Rehab 05/12/24 0802 MR#: [id number] Acct: [id number] Name: YAS ROSA Rep #:[id number] : 1940 83 From: Mariano Chan MD PCP: Dr. Kwabena Menjivar MD Status :ADM IN Location: [place] [address] Subjective Subjective Patient seen, examined. Dr. Diego [...] Catheter Urine Culture - Preliminary GNR lactose interior decorator 04/27/24 22:05 Urine Catheter - Catheter Urine [...] culture growing 50,000 to 80,000 gnr lactose interior decorator, Cipro 250mg bid x 7 days. * Nutrition - Ensure Plus 120mL 4x/day. * Neuropathic pain - Gabapentin 100mg bidcm. * Skin irritation - Calmoseptine topical bid. * Orthostatic hypotension - Midodrine 10mg tid. * Depression/Insomnia/appetite loss - Mirtazapine 15mg qhs. * GERD - Pantoprazole 40mg bid. 05/12/24807 <Electronically signed by Mariano Chan MD> Cosigner Signature (if applicable): CC: ~ Signed [facility] Work Phone: 1(375) 319-288604-04-2025 Progress note [facility] Medical Records Department [address] [place] [address] Progress Note - Rehab 05/12/24 0802 MR#: [id number] Acct: [id number] Name: YAS ROSA Rep #:[id number] : 1940 83 From: Mariano Chan MD PCP: Dr. Kwabena Menjivar MD Status :ADM IN Location: [place] [address] Subjective Subjective Patient seen, examined. Dr. Diego [...] Catheter Urine Culture - Preliminary GNR lactose interior decorator 04/27/24 22:05 Urine Catheter - Catheter Urine [...] culture growing 50,000 to 80,000 gnr lactose interior decorator, Cipro 250mg bid x 7 days. * Nutrition - Ensure Plus 120mL 4x/day. * Neuropathic pain - Gabapentin 100mg bidcm. * Skin irritation - Calmoseptine topical bid. * Orthostatic hypotension - Midodrine 10mg tid. * Depression/Insomnia/appetite loss - Mirtazapine 15mg qhs. * GERD - Pantoprazole 40mg bid. 05/12/24 0808 Cosigner Signature (if applicable): CC: ~ Signed [facility]04-03-2025 Progress note Author Ciro Diego [facility] Note Date/Time May 11, 2024 2:35 pm [facility] Medical Records Department [address] [place] [address] Progress Note - Orthopedic 05/11/24 1426 MR#: [id number] Acct: [id number] Name: YAS ROSA Rep #:[id number] : 1940 83 From: Ciro Diego MD PCP: Dr. Kwabena Menjivar MD Status :ADM IN Location: [place] [address]1 Subjective Subjective Saw patient in [facility] today as a 2-week follow-up. Patient comfortable [...] Catheter Urine Culture - Preliminary GNR lactose interior decorator 04/27/24 22:05 Urine Catheter - Catheter Urine Culture - Final Culture exhibits no growth. 04/29/24 22:20 Stool Stool Occult Blood (JERMAINE) - Final Radiography Diagnostic Testing: Radiology Impression Cervical Spine X-Ray 05/10/24 15:00 IMPRESSION: Stable ACDF hardware. No acute fracture or traumatic listhesis. Reading Location: [facility] Physical Exam Narrative Examination the neck [...] Cosigner Signature (if applicable): CC: ~ Signed [facility] Work Phone: 1(257) 811-585904-03-2025 Progress note [facility] Medical Records Department [address] [place] [address] Progress Note - Orthopedic 05/11/24 1426 MR#: [id number] Acct: [id number] Name: YAS ROSA Rep #:[id number] : 1940 83 From: Ciro Diego MD PCP: Dr. Kwabena Menjivar MD Status :ADM IN Location: [place] [address]1 Subjective Subjective Saw patient in [facility] today as a 2-week follow-up. Patient comfortable [...] Catheter Urine Culture - Preliminary GNR lactose interior decorator 04/27/24 22:05 Urine Catheter - Catheter Urine Culture - Final Culture exhibits no growth. 04/29/24 22:20 Stool Stool Occult Blood (JERMAINE) - Final Radiography Diagnostic Testing: Radiology Impression Cervical Spine X-Ray 05/10/24 15:00 IMPRESSION: Stable ACDF hardware. No acute fracture or traumatic listhesis. Reading Location: [facility] Physical Exam Narrative Examination the neck [...] Cosigner Signature (if applicable): CC: ~ Signed [facility]04-02-2025 Progress note Author Mariano Chan [facility] Note Date/Time May 10, 2024 5:41 pm [facility] Medical Records Department [address] [place] [address] Progress Note - Rehab 05/10/24 1731 MR#: [id number] Acct: [id number] Name: YAS ROSA Rep #:[id number] : 1940 83 From: Mariano Chan MD PCP: Dr. Kwabena Menjivar MD Status :ADM IN Location: [place] [address] Subjective Subjective Patient seen, examined. He seems [...] Sl. Cloudy, Urine pH 6.0, Ur Specific [place] 1.015, Urine Protein 500 H, Urine Glucose [...] acute fracture or traumatic listhesis. Reading Location: [id number] Indicators for Scoring Admitted with or Primary [...] Cosigner Signature (if applicable): CC: ~ Signed [facility] Work Phone: 1(461) 164-690804-02-2025 Progress note [facility] Medical Records Department [address] [place] [address] Progress Note - Rehab 05/10/24 173 MR#: [id number] Acct: [id number] Name: YAS ROSA Rep #:[id number] : 1940 83 From: Mariano Chan MD PCP: Dr. Kwabena Menjivar MD Status :ADM IN Location: [place] [address] Subjective Subjective Patient seen, examined. He seems [...] Sl. Cloudy, Urine pH 6.0, Ur Specific [place] 1.015, Urine Protein 500 H, Urine Glucose [...] acute fracture or traumatic listhesis. Reading Location: [facility] Indicators for Scoring Admitted with or [...] Cosigner Signature (if applicable): CC: ~ Signed [facility]04-02-2025 Radiology Diagnostic study note [facility] Imaging Services [address] [place] [address] Cerv Spine 2 or 3 Views MR#: [id number] Acct: [id number] Name: AYS ROSA Rep #: [id number] : 1940 M 83 From: Lisa Bailey MD PCP: Dr. Kwabena Menjivar MD Status: ADM IN Study:Cerv Spine 2 or 3 Views Date of Exam: 05/10/24 Exam# [id number] Ordering Dr: Sherwin Clark ONCOLOGY CONSULTANTSaloni PROCEDURE: CERV SPINE 2 OR 3 VIEWS [...] acute fracture or traumatic listhesis. Reading Location: [facility] CC: ONCOLOGY CONSULTANT-C Beronica Clark; Dr. Kwabena Menjivar MD ~ Employee Development Specialist: Signed [facility]04-01-2025 Progress note Author Corazon Demetriusgavin [facility] Note Date/Time May 09, 2024 12:5 2pm [facility] Medical Records Department [address] [place] [address] Progress Note 05/09/24 1035 MR#: [id number] Acct: [id number] Name: YAS ROSA Rep #:[id number] : 1940 83 From: Corazon Wright DO PCP: Dr. Kwabena Menjivar MD Status :ADM IN Location: [place] [address] Subjective Subjective Afebrile VSS -blood pressure this [...] but, no erythema of the anterior neck. [place] J collar is in place. Psych Psych [...] esophageal dysmotility. Charges/Coding Visit Charges Inpatient E&M: 63496 [facility] Hosp L1 05/09/24 1252 <Electronically signed by Corazon Wright DO> Corazon Wright DO Cosigner Signature (if applicable): CC: ~ Signed [facility] Work Phone: 1(674) 684-490704-01-2025 Procedure note [facility] Speech Pathology [address] [place] [address] Modified Barium Swallow Study MR#: [id number] Acct: [id number] Name: YAS ROSA Rep #:[id number] : 1940 83 From: Lalita jacobson M.A., CCC-TANK FURNACE OPERATOR Modified Barium Swallow Patient Information Study Date: 05/09/24 Study Time: 10:00 Direct Billable Minutes: 120 Total Minutes procedure & reportin Diagnosis: Pharyngeal dysphagia Referring Physician: Corazon Wright Medical History: The patient presented to [facility] ED 04/19/2024 after a fall at home [...] Result: 8= enters airway/below vocal folds/no effort Payette Thick Liquid via teaspoon: Result: 2= enter airway/above vocal folds/ejected Payette Thick Liquid via small single sip: cup: [...] 3: Result: 2= enter airway/above vocal folds/ejected Payette Thick Liquid via single sip: straw: Result: 1= does not enter airway Payette Thick Liquid via single sip: straw Trial [...] Status Active ST Patient: Active Contact Information [facility] Speech Therapy:: Lalita Grande M.A. TANK FURNACE OPERATOR Speech-Language Pathologist [address] [place] [address] [email or web address] [phone] 05/09/24 1253 marti Daigle CCC-TANK FURNACE OPERATOR> Date/Time Lalita Grande M.A., CCC-TANK FURNACE OPERATOR Co-Signature Required for all Medicare patients Date/Time Co-Signature CC: ~ [facility]04-01-2025 Progress note [facility] Medical Records Department [address] [place] [address] Progress Note 05/09/24 1035 MR#: [id number] Acct: [id number] Name: YAS ROSA Brigido Rep #:[id number] : 1940 83 From: Corazon Wright DO PCP: Dr. Kwabena Menjivar MD Status :ADM IN Location: [place] [address] Subjective Subjective Afebrile VSS -blood pressure this [...] but, no erythema of the anterior neck. [place] J collar is in place. Psych Psych [...] esophageal dysmotility. Charges/Coding Visit Charges Inpatient E&M: 80212 [facility] Hosp L1 05/09/24 1252 oCrazon Wright DO Cosigner Signature (if applicable): CC: ~ Signed [facility]03-31-2025 Progress [facility] Note Date/Time May 08, 2024 2:3 8pm [facility] Medical Records Department [address] [place] [address] Progress Note 05/08/24 0956 MR#: [id number] Acct: [id number] Name: MOEYAS Brigido Rep #:[id number] : 1940 83 From: Corazon Wright DO PCP: Dr. Kwabena Menjivar MD Status :ADM IN Location: [address] Subjective Subjective Milan was seen on [...] choose from. Charges/Coding Visit Charges Inpatient E&M: 19139 [facility] Hosp L2 05/08/24 2756 <Electronically signed by Corazon Wright DO> Corazon Wright DO Cosigner Signature (if applicable): CC: ~ Signed [facility] Work Phone: 1(192) 736-198703-31-2025 Progress note [facility] Medical Records Department [address] [place] [address] Progress Note 05/08/24 0956 MR#: [id number] Acct: [id number] Name: YAS ROSA Rep #:[id number] : 1940 83 From: Corazon Wright DO PCP: Dr. Kwabena Menjivar MD Status :ADM IN Location: [facility]-4 Subjective Subjective Milan was seen on team [...] choose from. Charges/Coding Visit Charges Inpatient E&M: 56217 Subs Hosp L2 05/08/24 1438 Corazon Wright DO Cosigner Signature (if applicable): CC: ~ Signed [facility]03-28-2025 Progress note Author Corazon [facility] Note Date/Time May 05, 2024 1:2 0pm [facility] Medical Records Department [address] [place] [address] Progress Note 05/05/24 1103 MR#: [id number] Acct: [id number] Name: YAS ROSA Rep #:[id number] : 1940 83 From: Corazon Wright DO PCP: Dr. Kwabena Menjivar MD Status :ADM IN Location: [place] [address] Subjective Subjective Afebrile Heart rate continues to [...] and psychotherapy. Charges/Coding Visit Charges Inpatient E&M: 33148 Subs Hosp L1 05/05/24 1320 <Electronically signed by Corazon Wright DO> Corazon Wright DO Cosigner Signature (if applicable): CC: ~ Signed [facility] Work Phone: 1(924) 468-956403-28-2025 Progress note [facility] Medical Records Department [address] [place] [address] Progress Note 05/05/24 1103 MR#: [id number] Acct: [id number] Name: YAS ROSA Rep #:[id number] : 1940 83 From: Corazon Wright DO PCP: Dr. Kwabena Menjivar MD Status :ADM IN Location: [place] [address] Subjective Subjective Afebrile Heart rate continues to [...] and psychotherapy. Charges/Coding Visit Charges Inpatient E&M: 22549 [facility] Hosp L1 05/05/24 1320 Corazon Wright DO Cosigner Signature (if applicable): CC: ~ Signed [facility]03-26-2025 Progress note Author Corazon Demetriusgavin [facility] Note Date/Time May 03, 2024 1:2 7pm [facility] Medical Records Department [address] [place] [address] Progress Note 05/03/24 1227 MR#: [id number] Acct: [id number] Name: YAS ROSA Brigido Rep #:[id number] : 1940 83 From: Corazon Wright DO PCP: Dr. Kwabena Menjivar MD Status :ADM IN Location: [place] [address] Subjective Subjective Afebrile VSS -blood pressure over [...] the AM. Charges/Coding Visit Charges Inpatient E&M: 19665 Subs Hosp L1 05/03/24 1327 <Electronically signed by Corazon Wright DO> Corazon Wright DO Cosigner Signature (if applicable): CC: ~ Signed [facility] Work Phone: 1(538) [phone] Progress note [facility] Medical Records Department [address] [place] [address] Progress Note 05/03/24 1227 MR#: [id number] Acct: [id number] Name: YAS ROSA Rep #:[id number] : 1940 83 From: Corazon Wright DO PCP: Dr. Kwabena Menjivar MD Status :ADM IN Location: [place] [address] Subjective Subjective Afebrile VSS -blood pressure over [...] the AM. Charges/Coding Visit Charges Inpatient E&M: 75615 Subs Hosp L1 05/03/24 1327 Corazon Wright DO Cosigner Signature (if applicable): CC: ~ Signed [facility]03-25-2025 Progress note Author Corazon Demetriusgavin [facility] Note Date/Time May 02, 2024 4:5 7pm [facility] Medical Records Department [address] [place] [address] Progress Note 05/02/24 1236 MR#: [id number] Acct: [id number] Name: YAS ROSA Rep #:[id number] : 1940 83 From: Corazon Wright DO PCP: Dr. Kwabena Menjivar MD Status :ADM IN Location: [place] [address] Subjective Subjective Afebrile VSS -blood pressure over [...] took 3 staff to walk him at [facility] to [place] assist Medication list reviewed. Has not taken [...] 3 days Charges/Coding Visit Charges Inpatient E&M: 99236 Subs Hosp L1 05/02/24 1657 <Electronically signed by Corazon Wright DO> Corazon Wright DO Cosigner Signature (if applicable): CC: ~ Signed [facility] Work Phone: 1(590) 623-216703-25-2025 Progress note [facility] Medical Records Department [address] [place] [address] Progress Note 05/02/24 1236 MR#: [id number] Acct: [id number] Name: YAS ROSA Rep #:[id number] : 1940 83 From: Corazon Wright DO PCP: Dr. Kwabena Menjivar MD Status :ADM IN Location: [place] [address] Subjective Subjective Afebrile VSS -blood pressure over [...] took 3 staff to walk him at [facility] to [place] assist Medication list reviewed. Has not taken [...] 3 days Charges/Coding Visit Charges Inpatient E&M: 81772 Subs Hosp L1 05/02/24 1657 Corazon Wright Cosigner Signature (if applicable): CC: ~ Signed [facility]03-25-2025 Progress note Author Corazon Wright [facility] Note Date/Time May 02, 2024 2:1 3pm [facility] Medical Records Department [address] [place] [address] Progress Note 05/01/24 1234 MR#: [id number] Acct: [id number] Name: YAS ROSA Rep #:[id number] : 1940 83 From: Corazon Wright DO PCP: Dr. Kwabena Menjivar MD Status :ADM IN Location: [place] [address] Subjective Subjective Milan was seen on team [...] continue IVF's. Charges/Coding Visit Charges Inpatient E&M: 34629 Subs Hosp L2 05/02/24 1413 <Electronically signed by Corazon Wright DO> Corazon Wright DO Cosigner Signature (if applicable): CC: ~ Signed [facility] Work Phone: 1(727) 686-470703-25-2025 Progress note [facility] Medical Records Department [address] [place] [address] Progress Note 05/01/24 1234 MR#: [id number] Acct: [id number] Name: YAS ROSA Rep #:[id number] : 1940 83 From: Corazon WuEvette Demetriusgavin BREWER PCP: Dr. Kwabena Menjivar MD Status :ADM IN Location: [facility]-3 Subjective Subjective Milan was seen on team [...] L, MPV 8.6, Sodium 141, Potassium 4.5, Gdljdlbd462 H, Carbon Dioxide 23.7, Anion Gap 8, [...] continue IVF's. Charges/Coding Visit Charges Inpatient E&M: 70492 Subs Hosp L2 05/02/24 1413 Corazon Wright DO Cosigner Signature (if applicable): CC: ~ Signed [facility]03-21-2025 History and physical note Author [facility] Note Date/Time April 28, 2024 3:3 5pm [facility] Medical Records Department [address] [place] [address] Post Admission Physician Eval 04/28/24 1241 MR#: [id number] Acct: [id number] Name: YAS ROSA Rep #:[id number] : 1940 83 From: Corazon Wright DO PCP: Dr. Kwabena Menjivar MD Status :ADM IN Location: [place] [address] Admission Information Primary Diagnosis:: DEBILITY DUE TO [...] Skin integrity and Medication Management Patient needs Rivet Flunky/ Case Management for: Discharge Planning, Arranging Home [...] TBD Was Preadmission Assessment Accurate?: Yes 04/28/24 2820 <Electronically signed by Corazon Wright DO> Cosigner Signature (if applicable): CC: ~ Signed [facility] Work Phone: 1(483) 908-848103-21-2025 History and physical note Author Corazon Wright [facility] Note Date/Time April 28, 2024 3:2 4pm [facility] Medical Records Department [address] [place] [address] History & Physical Exam 04/28/24 1015 MR#: [id number] Acct: [id number] Name: YAS ROSA Rep #:[id number] : 1940 83 From: Corazon Wright PCP: Dr. Kwabena Menjivar MD Status :ADM IN Location: [facility] - General General Date of Admission: 04/27/24 [...] He presented to the ED at [facility] on 04/19/24 after having a fall in [...] meds at presentation to the emergency department. [facility] Medical History (Updated 04/28/24 @ 15:16 by [...] Father , at 40 YOA of an ND Heart disease Other Hypertension Surgical History (Updated [...] is subluxed dueto muscle atrophy. Can not solar installer pv with hand. R arm falls immediately to the bed when I lift it up. He has some tone in the R triceps, biceps and brachioradialis muscle. Has shoulder shrug BL which is about even. NO tremors. R solar installer pv is weak and heb is R hand dominant. He can lift both legs off the bed and hold for 5 sec. Good plantar flexion and dorsiflexion with both feet. PERRLA. No faciall droop. No nystagmus. Tracks well and did not have vertigo Psych mental status grossly normal, thought process normal and cooperative Psych Narrative: depressed affect. Not suicidal......his restorationist (Rastafarian) feels this is a sinand you will [...] Clarity Clear, Urine pH 5.0, Ur Specific [place] 1.020, Urine Protein 15 H, Urine Glucose [...] completing documentation. Charges/Coding Visit Charges Inpatient E&M: 02617 Init Hosp L3 04/28/24 8080 <Electronically signed by Corazon Wright DO> Cosigner [...] MD; Dr. Corazon Wright DO ~* Signed [facility] Work Phone: 1(409) 605-116203-21-2025 History and physical note [facility] Medical Records Department [address] [place] [address] Post Admission Physician Jodie 04/28/24 1241 MR#: [id number] Acct: [id number] Name: YAS ROSA Rep #:[id number] : 1940 83 From: Corazon Wright DO PCP: Dr. Kwabena Menjivar MD Status :ADM IN Location: [place] [address] Admission Information Primary Diagnosis:: DEBILITY DUE TO [...] Skin integrity and Medication Management Patient needs Rivet Flunky/ Case Management for: Discharge Planning, Arranging Home [...] [facility].) Patient will perform Tub/Shower transfer at: - (Min assist with DME as needed) Patient will complete grooming at: - (Minimal assistance while seated at the sink) Patient will achieve: - (12 steps with 1 handrail to allow [facility] ) Patient will have pain level of: of 3 or less Patient's skin will: remain intact Patient will receive: adequate nutrition. Discharge Planning Pt Prognosis for Sig. Practical Improv. w/in Reasonable Time: Good Estimated Length of stay (days): 28 Anticipated D/C Destination: TBD Was Preadmission Assessment Accurate?: Yes 04/28/24 8645 Cosigner Signature (if applicable): CC: ~ Signed [facility]03-21-2025 History and physical note [facility] Medical Records Department [address] [place] [address] History & Physical Exam 04/28/24 1015 MR#: [id number] Acct: [id number] Name: YAS ROSA Brigido Rep #:[id number] : 1940 83 From: Corazon Wright DO PCP: Dr. Kwabena Menjivar MD Status :ADM IN Location: [place] [address] [facility] - General General Date of Admission: 04/27/24 [...] He presented to the ED at [facility] on 04/19/24 after having a fall in [...] prescribed meds at presentation to theemergency department. [facility] Medical History (Updated 04/28/24 @ 15:16 by [...] Father , at 40 YOA of an ND Heart disease Other Hypertension Surgical History (Updated [...] is subluxed dueto muscle atrophy. Can not solar installer pv with hand. R arm falls immediately to the bed when I lift it up. He has some tone in the R triceps, biceps and brachioradialis muscle. Has shoulder shrug BL which is about even. NO tremors.R solar installer pv is weak and heb is R hand dominant. He can lift both legs off the bed and hold for 5 sec. Good plantar flexion and dorsiflexion with both feet. PERRLA. No faciall droop. No nystagmus. Tracks well and did not have vertigo Psych mental status grossly normal, thought process normal and cooperative Psych Narrative: depressed affect. Not suicidal......his restorationist (Rastafarian) feels this is a sinand you will [...] Clarity Clear, Urine pH 5.0, Ur Specific [place] 1.020, Urine Protein 15 H, Urine Glucose [...] completing documentation. Charges/Coding Visit Charges Inpatient E&M: 02755 Init Hosp L3 04/28/24 1519 Cosigner Signature [...] MD; Dr. Corazon Wright, DO ~* Signed [facility]03-21-2025 [facility] Progress note Author Awa Chadwick [facility] Note Date/Time April 27, 2024 7:4 5pm [facility] Medical Records Department [address] [place] [address] Progress Note - Orthopedic 04/27/241938 MR#: [id number] Acct: [id number] Name: YAS ROSA Rep #:[id number] : 1940 83 From: Awa CONTEH PCP: Dr. Kwabena Menjivar MD Status :ADM IN Location: [place] [address] Subjective Subjective Seen with Dr. Diego. Patient [...] reapplied. Neurological examination left grade 1 finger solar installer pv, grade 0 finger abduction, grade 4 wrist [...] Cosigner Signature (if applicable): CC: ~ Signed [facility] Work Phone: 1(988) 739-913003-20-2025 Progress note [facility] Medical Records Department [address] [place] [address] Progress Note - Orthopedic 04/27/241938 MR#: [id number] Acct: [id number] Name: YAS ROSA Rep #:[id number] : 1940 83 From: Awa CONTEH PCP: Dr. Kwabena Menjivar MD Status :ADM IN Location: [place] [address] Subjective Subjective Seen with Dr. Diego. Patient [...] reapplied. Neurological examination left grade 1 finger solar installer pv, grade 0 finger abduction, grade 4 wrist [...] Cosigner Signature (if applicable): CC: ~ Signed [facility]03-20-2025 Evaluation note* Diagnosis Onset Date Resolution Status Admit Date BPPV (benign paroxysmal positional vertigo) acute April 27, 2024 3:15pm Debility acute April 27 3:15pm Dysphagia acute April 27 3:15pm Fall acute April 27 3:15pm GERD (gastroesophageal reflu x disease) acute April 27, 2024 3:15pm Muscle spasm acute April 27, 2024 3:15pm Orthostatic hypotension acute [facility] 2024 3:15pm Osteoarthritis acute April 3:15pm Severe dehydration acute April 27, 2024 3:15pm Status post cervical spinal fusion acute April 27, 2024 3:15pm Traumatic brain injury with loss of consciousness acute April 27 3:15pm Urinary incontinence acute [facility] 2024 3:15pm Urine retention acute April 3:15pm Anxiety and depression chronic [facility] 2024 3:15pm Bilateral arm weakness chronic [facility] 2024 3:15pm Chronic left shoulder pain chronic April 27, 2024 3:15pm GERD with esophagitis chronic [facility] 2024 3:15pm History of IBS chronic April [...] Orthostatic lightheadedness resolved August 06, 2024 1:22pm [place] [employer] Work Phone: 1(920) 475-910403-20-2025 Discharge summary [facility] Medical Records Department [address] [place] [address] Discharge Summary 04/27/24 1353 MR#: [id number] Acct: [id number] Name: YAS ROSA Rep #:[id number] : 1940 83 From: Harish Schneider PCP: Dr. Kwabena Menjivar MD Status :ADM IN Location: [place] [address] Providers Date of Admission: 04/20/24 Date of [...] (Auto) 78.8 H, Lymph % (Auto) 14.3L, Levy % (Auto) 5.8, Eos % (Auto) 0.0, [...] fluoroscopic images were also obtained. Reading Location: [address] Cervical Spine X-Ray 04/26/24 11:05 IMPRESSION: Intraoperative fluoroscopy performed for anterior cervical discectomy and fusionsurgery. 10 fluoroscopic images were also obtained. Reading Location: [id number] Cervical Spine X-Ray 04/27/24 07:00 IMPRESSION: Osteopenia. Interval placement of a metallic fixation plate at the anterior margin of C3-C6. Interval placement of interbody spacer devices at C3-4, C4-5, and C5-6. No acute bony abnormality of the cervical spine. Similar moderate/severe degenerative disc disease at C6-7. [facility] Discharge Diet: Light diet [...] Self Care Charges/Coding Visit Charges Inpatient E&M: 26336 Disch Hosp >30min 04/27/24 7204 Cosigner Signature (if applicable): CC: Dr. Kwabena Menjivar MD; Dr. Harish Baxter MD~ Signed [facility]03-20-2025 Discharge summary [facility] Medical Records Department [address] [place] [address] Instructions for Home/Discharge Instructions 04/27/24 1045 MR#: [id number] Acct: [id number] Name: YAS ROSA Rep #:[id number] : 1940 83 From: Harish Schneider PCP: [...] Alfred DO; Dr.Robert Gretchen MD ~ Signed [facility]03-20-20[facility] Discharge summary Author Harish Baxter [facility] Note Date/Time April 27, 2024 1:5 3pm [facility] Medical Records Department [address] [place] [address] Instructions for Home/Discharge Instructions 04/27/24 1045 MR#: [id number] Acct: [id number] Name: YAS ROSA Rep #:[id number] : 1940 83 From: Harish Schneider PCP: [...] Alfred DO; Dr.Robert Gretchen MD ~ Signed [facility] Work Phone: 1(184) 999-871103-20-2025 Radiology Diagnostic study note [facility] Imaging Services [address] [place], [place] [address] Cerv Spine 2 or 3 Views MR#: [id number] Acct: [id number] Name: MOEYAS Brigido Rep #: [id number] : 1940 M 83 From: Oren Narvaez DO PCP: Dr. Kwabena Menjivar MD Status: ADM IN Study:Cerv Spine 2 or 3 Views Date of Exam: 04/27/24 Exam# [id number] Ordering Dr: Cheikh Chadwick PA PROCEDURE: Cervical [...] YADY Hyman; Dr. Kwabena Menjivar MD ~ Employee Development Specialist: Signed [facility]03-19-2025 Progress note Author Harish Baxter [facility] Note Date/Time April 26, 2024 4:3 5pm [facility] Medical Records Department [address] [place] [address] Progress Note - Hospitalist 04/26/24 1525 MR#: [id number] Acct: [id number] Name: YAS ROSA Rep #:[id number] : 1940 83 From: Harish Schneider PCP: Dr. Kwabena Menjivar MD Status :ADM IN Location: [facility] [id number] Reason for Visit Reason for Visit: [...] % (Auto) 62.4, Lymph % (Auto) 26.4, Levy% (Auto) 8.2, Eos % (Auto) 2.2, Baso [...] fluoroscopic images were also obtained. Reading Location: [address] Cervical Spine X-Ray 04/26/24 11:05 IMPRESSION: Intraoperative fluoroscopy performed for anterior cervical discectomy and fusionsurgery. 10 fluoroscopic images were also obtained. Reading Location: [address] Physical Exam Narrative Seen and examined [...] with SCDs Charges/Coding Visit Charges Inpatient E&M: 26160 Subs Hosp L2 04/26/24 4999 <Electronically signed by Harish Baxter MD> Cosigner Signature (if applicable): CC: ~ Signed [facility] Work Phone: 1(665) 871-362003-19-2025 Consult note Author Krish Guevara [facility] Note Date/Time April 26, 2024 3:5 1pm [facility] Medical Records Department [address] [place] [address] Anesthesia Postop Eval II 04/26/24 1549 MR#: [id number] Acct: [id number] Name: YSA ROSA Rep #:[id number] : 1940 83 From: Krish Guevara MD PCP: Dr. Kwabena Menjivar MD Status :ADM IN Y Race: C Location: [address] Anesthesia Postop Eval I Sum Postop Eval Completion status Anesthesia document: Postop Eval 1 completed: Yes Anesthesia Postop Eval I Summary Anesthesia Postop Eval I Summary: Anesthesia Postop Eval I: Assessment Summary Airway patent Yes 04/26/24 14:22 PAINTER HELPER [email or web address].[email or web address] Spontaneous unlabored Yes 04/26/24 14:22 PAINTER HELPER SIGN.TNES respirations Mental status nausea No 04/26/24 14:22 PAINTER HELPER SIGN.[email or web address] Vomiting No 04/26/24 14:22 PAINTER HELPER SIGN.TNES Anesthesia Postop Eval I: Fluid Summary Crystalloid volume administer 1,400 04/26/24 14:22 PAINTER HELPER SIGN.TNES (ml) Colloids volume administered ( ml) Blood Product volume administered (ml) Total IV fluid infused 1,400 04/26/24 14:22 PAINTER HELPER SIGN.TNES Anesthesia Postop Eval I: Summary Notes Anesthesia Complication No 04/26/24 14:22 PAINTER HELPER [email or web address].[email or web address] Anesthesia Complication Comment: Post-operative progress note Anesthesia: Postop Eval II Evaluation Mental status: Awake and Calm Pain Level: 2 nausea: No Vomiting: No Complications Anesthesia Complication: No 04/26/24 1551 <Electronically signed by Krish parada MD> Date _ Krish Guevara MD Cosigner Signature: Date CC: ~ Signed [facility] Work Phone: 1(960) 681-829603-19-2025 Progress note [facility] Medical Records Department [address] [place] [address] Progress Note - Hospitalist 04/26/24 1525 MR#: [id number] Acct: [id number] Name: YAS ROSA Rep #:[id number] : 1940 83 From: Harish Schneider PCP: Dr. Kwabena Menjivar MD Status :ADM IN Location: [place] [address] Reason for Visit Reason for Visit: Diagnoses [...] % (Auto) 62.4, Lymph % (Auto) 26.4, Levy% (Auto) 8.2, Eos % (Auto) 2.2, Baso [...] fluoroscopic images were also obtained. Reading Location: [address] Cervical Spine X-Ray 04/26/24 11:05 IMPRESSION: Intraoperative fluoroscopy performed for anterior cervical discectomy and fusionsurgery. 10 fluoroscopic images were also obtained. Reading Location: [address] Physical Exam Narrative Seen and examined [...] dressing soaked with serosanguineous fluid, expected from [place] drain. Subcutaneous bruise/ecchymosis over left orbital and [...] with SCDs Charges/Coding Visit Charges Inpatient E&M: 57569 Subs Hosp L2 04/26/24 1635 Cosigner Signature (if applicable): CC: ~ Signed [facility]03-19-2025 Consult note Author Tl Danielsbitt [facility] Note Date/Time April 26, 2024 2:2 2pm [facility] Medical Records Department [address] [place] [address] Anesthesia Postop Eval I 04/26/24 1422 MR#: [id number] Acct: [id number] Name: MEOYAS Brigido Rep #:[id number] : 1940 83 From: Tl JHAVERI PCP: Dr. Kwabena Menjivar MD Status :ADM IN Y Race: C Location: [place] [address] Anesthesia: Postop Eval I Current Vital Signs [...] CRNA Cosigner Signature: Date CC: ~ Signed [facility] Work Phone: 1(183) 389-883803-19-2025 Consult note [facility] Medical Records Department [address] [place] [address] Anesthesia Postop Eval II 04/26/24 1549 MR#: [id number] Acct: [id number] Name: YAS ROSA Rep #:[id number] : 1940 83 From: Krish Guevara MD PCP: Dr. Kwabena Menjivar MD Status :ADM IN Y Race: C Location: [place] [address] 6-1 Anesthesia Postop Eval I Sum Postop Eval Completion status Anesthesia document: Postop Eval 1 completed: Yes Anesthesia Postop Eval I Summary Anesthesia Postop Eval I Summary: Anesthesia Postop Eval I: Assessment Summary Airway patent Yes 04/26/24 14:22 PAINTER HELPER [email or web address] Spontaneous unlabored Yes 04/26/24 14:22 PAINTER HELPER SIGN.[email or web address] respirations Mental status nausea No 04/26/24 14:22 PAINTER HELPER SIGN.[email or web address] Vomiting No 04/26/24 14:22 PAINTER HELPER SIGN.TNES Anesthesia Postop Eval I: Fluid Summary Crystalloid volume administer 1,400 04/26/24 14:22 PAINTER HELPER SIGN.TNES (ml) Colloids volume administered ( ml) Blood Product volume administered (ml) Total IV fluid infused 1,400 04/26/24 14:22 PAINTER HELPER [email or web address].TNES Anesthesia Postop Eval I: Summary Notes Anesthesia Complication No 04/26/24 14:22 PAINTER HELPER [email or web address].TNES Anesthesia Complication Comment: Post-operative progress note Anesthesia: Postop Eval II Evaluation Mental status: Awake and Calm Pain Level: 2 nausea: No Vomiting: No Complications Anesthesia Complication: No 04/26/24 1551 tal CABELLO> Date _ Krish Pritchard Signature: Date CC: ~ Signed [facility]03-19-2025 Procedure note [facility] Medical Records Department [address] [place] [address] Operative Report 04/26/24 1425 MR#: [id number] Acct: [id number] Name: YAS ROSA Rep #:[id number] : 1940 83 From: Ciro Diego MD PCP: Dr. 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, stenosis, cord compression withmyelopathy, cord signal changes Post-Operative Diagnosis: Same Surgery/Procedure Performed: C3-6 ACDF airport manager: Yes Forming Fixer: Awa Chadwick Tasks completed by assistant principal: Closing, Removing tissue, Implanting device, Hemostasis: Electrocautery [...] all DRAINS/GRAFTS/IMPLANTS that apply: Drains Drain details: [place] drain , Graft Graft details: Structural allograft cortical cancellous strut, DBX and Implanted device Implanted device details: Medtronic Omao Elite plate instrumentation Estimated Blood Loss: 50 cc Specimen collected: No Description of surgery: Preoperative diagnosis: 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 Anesthesia: Gen. endotracheal Estimated blood loss: 50 mL Complications: None Instrumentation used: Medtronic Omao Elite plate, LASR corticocancellous block Indications: The [...] Disc fragments were removed with the pituitary. [place] pins were placed in C4 and C5 [...] good pullout strength. A 60 mm Medtronic Omao Elite plate wascontoured for larger lordosis due [...] entire surgery and performed the surgery myself. Chha Awa Chadwick PA-C. My physician accounting assistant was a vital part of this [...] Keanu Alfred DO; Dr.Robert Gretchen MD~ Signed [facility]03-19-2025 Consult note [facility] Medical Records Department [address] [place] [address] Anesthesia Postop Eval I 04/26/241421 MR#: [id number] Acct: [id number] Name: YAS ROSA Rep #:[id number] : 1940 83 From: Tl JHAVERI PCP: Dr. Kwabena Menjivar MD Status :ADM IN Y Race: C Location: [place] [address] Anesthesia: Postop Eval I Current Vital Signs Temperature: 97.7 F Pulse Rate: 66 Blood Pressure: 107/55 Respiratory Rate: 16 Pulse Ox: 94 Assessment Airway patent: Yes Spontaneous unlabored respirations: Yes nausea: No Vomiting: No Anesthesia Complication: No Fluid Hydration Crystalloid volume administer (ml): 1,400 Total IV fluid infused: 1,400 Progress Note Anesthesia document: Postop Eval 1 completed: Yes 04/26/24 142 PAINTER HELPER SIGN> Date _ Tl Voigner Signature: Date CC: ~ Signed [facility]03-19-2025 Radiology Diagnostic study note [facility] Imaging Services [address] [place], [place] [address] Cerv Spine 2 or 3 Views MR#: [id number] Acct: [id number] Name: YAS ROSA Rep #: [id number] : 1940 M 83 From: Fito Maldonado MD PCP: Dr. Kwabena Menjivar MD Status: ADM IN Study:Cerv Spine 2 or 3 Views Date of Exam: 04/26/24 Exam# [id number] Ordering Dr: Kristine Diego MD PROCEDURE: CERV [...] fluoroscopic images were also obtained. Reading Location: [address] CC: Dr. Ciro Diego MD; Dr. Kwabena Menjivar MD ~ Employee Development Specialist: Signed [facility]03-19-2025 Radiology Diagnostic study note [facility] Imaging Services [address] [place], [place] [id number] O.R. Fluoro for C-Arm MR#: [id number] Acct: [id number] Name: YAS ROSA Rep #: [id number] : 1940 M 83 From: Fito Maldonado MD PCP: Dr. Kwabena Menjivar MD Status: ADM IN Study:O.R. Fluoro for C-Arm Date of Exam: 04/26/24 Exam# [id number] Ordering Dr: Kristine Diego MD PROCEDURE: CERV [...] fluoroscopic images were also obtained. Reading Location: [address] CC: Dr. Ciro Diego MD; Dr. Kwabena Menjivar MD ~ Employee Development Specialist: Signed [facility]03-19-2025 Consult note Author Tl María [facility] Note Date/Time April 26, 2024 10: 39am [facility] Medical Records Department [address] [place] [address] Pre-Anesthesia Evaluation 04/26/24 1033 MR#: [id number] Acct: [id number] Name: YAS ROSA Rep #:[id number] : 1940 83 From: Tl LOPEZ NA PCP: Dr. Kwabena Menjivar MD Status :ADM IN Y Race: C Location: [place] [address] ASA Classification* ASA Classification ASA Classification: 3 [...] ACDF C3-6 Anesthesia History Anesthesia History - electric powerline examiner: Anesthesia History - electric powerline examiner Hx Hospitalization No 03/08/24 08:44 Any Problems [...] take am of surgery PONV PONV - electric powerline examiner: PONV - electric powerline examiner Female HX of Motion Sickness HX of N/V After Surgery Non-Smoker Duration of Surgery greater than 60 minutes Number of Risk Factors PONV Score Height & Weight Height & Weight: Anesthesia: Height & Weight Height 5 ft 8 in 04/26/24 08:40 Weight: 75.6 kg 04/26/24 08:40 Body Mass Index (BMI) 25.3 04/26/24 08:40 Respiratory Assessment Respiratory Assessment - electric powerline examiner: Respiratory Tract Infection Hx - electric powerline examiner Hx Respiratory Tract Infection No 04/25/24 21:52 STOP Sleep Apnea STOP Sleep Apnea - electric powerline examiner: STOP Sleep Apnea - electric powerline examiner Hx Hypertension No 04/20/24 12:54 Hx Sleep [...] Tobacco Use History Tobacco Use History - electric powerline examiner: Tobacco Use History - electric powerline examiner Tobacco Use Smoking Status Former smoker 04/19/24 15:04 Hx Tobacco Use No 04/19/24 15:04 Years Smoking Packs Smoked per Day Smoking Cessation Date was No - quit smoking greater 04/19/24 15:04 within the last 15 years than 15 years ago Hx Smoking Cessation Date 09/08/1968 04/19/24 15:04 Hx Smoking Cessation Counseling Hematologic Medial History Hematologic Hx - electric powerline examiner: 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 Hx of Blood Transfusion No 04/19/24 15:04 [...] confused, unrespo /Reproduction History /Reproductive History - electric powerline examiner: /Reproductive Hx- electric powerline examiner Hx Now No 04/25/24 21:52 Gestational Age [...] CRNA Cosigner Signature: Date CC: ~ Signed [facility] Work Phone: 1(110) 326-411003-19-2025 Consult note Author Tl [facility] Note Date/Time April 26, 2024 9:4 9am [facility] Medical Records Department [address] [place] [address] Anesthesia Postop Eval I 04/26/24 0949 MR#: [id number] Acct: [id number] Name: YAS ROSA Rep #:[id number] : 1940 83 From: Tl JHAVERI PCP: Dr. Kwabena Menjivar MD Status :ADM IN Y Race: C Location: [address] Anesthesia: Postop Eval I Current Vital [...] Tl Daniel CRNA> Date _ Tl Daniel PAINTER HELPER SIGN Cosigner Signature: Date CC: ~ Signed [facility] Work Phone: 1(331) 442-384903-19-2025 Progress note Author Ciro Diego [facility] Note Date/Time April 26, 2024 9:4 6am [facility] Medical Records Department [address] [place] [address] Progress Note - Orthopedic 04/26/24 0945 MR#: [id number] Acct: [id number] Name: YAS ROSA Brigido Rep #:[id number] : 1940 83 From: Ciro Diego MD PCP: Dr. Kwabena Menjivar MD Status :ADM IN Location: [place] [address] Subjective Subjective Saw patient in preop. Reviewed [...] % (Auto) 62.4, Lymph % (Auto) 26.4, Levy% (Auto) 8.2, Eos % (Auto) 2.2, Baso % (Auto) 0.1, Absolute Neuts (auto) 5.4, Absolute Lymphs (auto) 2.30, Nucleated RBC % 0, Sodium 136, Potassium 4.5, Chloride 107, Carbon Dioxide 22.8, Anion Gap 6, BUN 20 H, Creatinine 0.83, EstimCreat Clear Calc 66.39, Est GFR (MDRD) Non-Af 87, BUN/Creatinine Ratio 23.4 H, Glucose 91, Calcium 8.2 Charges/Coding Visit Charges Inpatient E&M: 58604 Subs Hosp L1 04/26/24 0946 <Electronically signed by Ciro Diego MD> Cosigner Signature (if applicable): CC: ~ Signed [facility] Work Phone: 1(938) 618-976803-19-2025 Consult note [facility] Medical Records Department [address] [place] [address] Pre-Anesthesia Evaluation 04/26/24 1033 MR#: [id number] Acct: [id number] Name: YAS ROSA Rep #:[id number] : 1940 83 From: Tl JHAVERI PCP: Dr. Kwabena Menjivar MD Status :ADM IN Y Race: C Location: [address] ASA Classification* ASA Classification ASA Classification: [...] ACDF C3-6 Anesthesia History Anesthesia History - electric powerline examiner: Anesthesia History - electric powerline examiner Hx Hospitalization No 03/08/24 08:44 Any Problems [...] take am of surgery PONV PONV - electric powerline examiner: PONV - electric powerline examiner Female HX of Motion Sickness HX of N/V After Surgery Non-Smoker Duration of Surgery greater than 60 minutes Number of Risk Factors PONV Score Height & Weight Height & Weight: Anesthesia: Height & Weight Height 5 ft 8 in 04/26/24 08:40 Weight: 75.6 kg 04/26/24 08:40 Body Mass Index (BMI) 25.3 04/26/24 08:40 Respiratory Assessment Respiratory Assessment - electric powerline examiner: Respiratory Tract Infection Hx - electric powerline examiner Hx Respiratory Tract Infection No 04/25/24 21:52 STOP Sleep Apnea STOP Sleep Apnea - electric powerline examiner: STOP Sleep Apnea - electric powerline examiner Hx Hypertension No 04/20/24 12:54 Hx Sleep [...] Tobacco Use History Tobacco Use History - electric powerline examiner: Tobacco Use History - electric powerline examiner Tobacco Use Smoking Status Former smoker 04/19/24 15:04 Hx Tobacco Use No 04/19/24 15:04 Years Smoking Packs Smoked per Day Smoking Cessation Date was No - quit smoking greater 04/19/24 15:04 within the last 15 years than 15 years ago Hx Smoking Cessation Date 09/08/1968 04/19/24 15:04 Hx Smoking Cessation Counseling Hematologic Medial History Hematologic Hx - electric powerline examiner: 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 04/26/24 1039 PAINTER HELPER SIGN> Date _ Tl Daniel PAINTER HELPER SIGN Cosigner Signature: Date CC: ~ Signed [facility]03-19-2025 Consult note [facility] Medical Records Department [address] [place] [address] Anesthesia Postop Eval I 04/26/24 0949 MR#: [id number] Acct: [id number] Name: YAS ROSA Brigido Rep #:[id number] : 1940 83 From: Tl JHAVERI PCP: Dr. Kwabena Menjivar MD Status :ADM IN Y Race: C Location: [place] [address] Anesthesia: Postop Eval I Current Vital Signs Temperature: 97.4 F Pulse Rate: 67 Blood Pressure: 124/74 Respiratory Rate: 16 Pulse Ox: 98 Assessment Airway patent: Yes Spontaneous unlabored respirations: Yes nausea: No Vomiting: No Anesthesia Complication: No Fluid Hydration Crystalloid volume administer (ml): 1,500 Total IV fluid infused: 1,500 Progress Note Anesthesia document: Postop Eval 1 completed: Yes 04/26/24 0949 PAINTER HELPER SIGN> Date _ Tl María PAINTER HELPER SIGN Cosigner Signature: Date CC: ~ Signed [facility]03-19-2025 Progress note [facility] Medical Records Department [address] [place] [address] Progress Note - Orthopedic 04/26/2445 MR#: [id number] Acct: [id number] Name: YAS ROSA Brigido Rep #:[id number] : 1940 83 From: Ciro Diego MD PCP: Dr. Kwabena Menjivar MD Status :ADM IN Location: [place] [address] Subjective Subjective Saw patient in preop. Reviewed [...] % (Auto) 62.4, Lymph % (Auto) 26.4, Levy% (Auto) 8.2, Eos % (Auto) 2.2, Baso % (Auto) 0.1, Absolute Neuts (auto) 5.4, Absolute Lymphs (auto) 2.30, Nucleated RBC % 0, Sodium 136, Potassium 4.5, Chloride 107, Carbon Dioxide 22.8, Anion Gap 6, BUN 20 H, Creatinine 0.83, EstimCreat Clear Calc 66.39, Est GFR (MDRD) Non-Af 87, BUN/Creatinine Ratio 23.4 H, Glucose 91, Calcium 8.2 Charges/Coding Visit Charges Inpatient E&M: 38368 Subs Hosp L1 04/26/24 0946 Cosigner Signature (if applicable): CC: ~ Signed [facility]03-18-2025 Progress note Author Ana Rosa Howard [facility] Note Date/Time April 25, 2024 9:1 7pm [facility] Medical Records Department [address] [place] [address] Progress Note - Surgery 04/25/24 1432 MR#: [id number] Acct: [id number] Name: MOEYAS Brigido Rep #:[id number] : 1940 83 From: Ana Rosa Ruiz ll ONCOLOGY CONSULTANT ONCOLOGY CONSULTANT-C PCP: Dr. Kwabena Menjivar MD Status :ADM IN Location: [facility] [id number] <Statement entered by Yas Godinez MD [...] % (Auto) 60.4, Lymph % (Auto) 30.0, Levy% (Auto) 7.5, Eos % (Auto) 1.3, Baso [...] 1453 <Electronically signed by Ana Rosa Howard ONCOLOGY CONSULTANT ONCOLOGY CONSULTANT-C> Cosigner Signature (if applicable): 04/25/242116 <Electronically signed by Yas Godinez MD> CC: ~ Signed [facility] Work Phone: 1(160) 416-838103-18-2025 Progress note [facility] Medical Records Department [address] [place] [address] Progress Note - Surgery 04/25/24 1432 MR#: [id number] Acct: [id number] Name: MOEYAS Brigido Rep #:[id number] : 1940 83 From: Ana Rosa mccall ONCOLOGY CONSULTANT ONCOLOGY CONSULTANT-C PCP: Dr. Kwabena Menjivar MD Status :ADM IN Location: [place] [address] I have personally performed a face to [...] % (Auto) 60.4, Lymph % (Auto) 30.0, Levy% (Auto) 7.5, Eos % (Auto) 1.3, Baso [...] plan of care with Dr. Godinez. 04/25/24 6630 Cosigner Signature (if applicable): 04/25/24 9132 CC: ~ Signed [facility]03-18-2025 Progress note Author Harish Baxter [facility] Note Date/Time April 25, 2024 2:4 7pm [facility] Medical Records Department [address] [place] [address] Progress Note - Hospitalist 04/25/24 1441 MR#: [id number] Acct: [id number] Name: YAS ROSA Rep #:[id number] : 1940 83 From: Harish Schneider PCP: Dr. Kwabena Menjivar MD Status :ADM IN Location: [place] [address] Reason for Visit Reason for Visit: Diagnoses [...] % (Auto) 60.4, Lymph % (Auto) 30.0, Levy% (Auto) 7.5, Eos % (Auto) 1.3, Baso [...] with SCDs Charges/Coding Visit Charges Inpatient E&M: 85207 Subs Hosp L2 04/25/24 1447 <Electronically signed by Harish Baxter MD> Cosigner Signature (if applicable): CC: ~ Signed [facility] Work Phone: 1(964) 199-192703-18-2025 Progress note [facility] Medical Records Department [address] [place] [address] Progress Note - Hospitalist 04/25/24 1441 MR#: [id number] Acct: [id number] Name: YAS ROSA Rep #:[id number] : 1940 83 From: Harish Schneider PCP: Dr. Kwabena Menjivar MD Status :ADM IN Location: [place] [address] Reason for Visit Reason for Visit: Diagnoses [...] % (Auto) 60.4, Lymph % (Auto) 30.0, Levy% (Auto) 7.5, Eos % (Auto) 1.3, Baso [...] with SCDs Charges/Coding Visit Charges Inpatient E&M: 91634 Subs Hosp L2 04/25/24 9227 Cosigner Signature (if applicable): CC: ~ Signed [facility]03-18-2025 Progress note Author Ciro Diego [facility] Note Date/Time April 25, 2024 12: 04pm [facility] Medical Records Department [address] [place] [address] Progress Note - Orthopedic 04/25/24 1200 MR#: [id number] Acct: [id number] Name: YAS ROSA Rep #:[id number] : 1940 83 From: Ciro Diego MD PCP: Dr. Kwabena Menjivar MD Status :ADM IN Location: [place] [address] Subjective Subjective Surgery canceled yesterday due to [...] % (Auto) 60.4, Lymph % (Auto) 30.0, Levy% (Auto) 7.5, Eos % (Auto) 1.3, Baso [...] of upper extremity shows grade 1 finger solar installer pv, grade 0 finger abduction, grade 4 wrist [...] additional treatment. Charges/Coding Visit Charges Inpatient E&M: 55808 Subs Hosp L3 04/25/24 1204 <Electronically signed by Ciro Diego MD> Cosigner Signature (if applicable): CC: ~ Signed [facility] Work Phone: 1(221) 274-811103-18-2025 Progress note [facility] Medical Records Department [address] [place] [address] Progress Note - Orthopedic 04/25/24 1200 MR#: [id number] Acct: [id number] Name: YAS ROSA Rep #:[id number] : 1940 83 From: Ciro Diego MD PCP: Dr. Kwabena Menjivar MD Status :ADM IN Location: [place] [address] Subjective Subjective Surgery canceled yesterday due to [...] % (Auto) 60.4, Lymph % (Auto) 30.0, Levy% (Auto) 7.5, Eos % (Auto) 1.3, Baso [...] of upper extremity shows grade 1 finger solar installer pv, grade 0 finger abduction, grade 4 wrist [...] additional treatment. Charges/Coding Visit Charges Inpatient E&M: 19361 Subs Hosp L3 04/25/24 1204 Cosigner Signature (if applicable): CC: ~ Signed [facility]03-17-2025 Progress note Author Harish Baxter [facility] Note Date/Time April 24, 2024 2:1 8pm [facility] Medical Records Department [address] [place] [address] Progress Note - Hospitalist 04/24/24 0804 MR#: [id number] Acct: [id number] Name: YAS ROSA Rep #:[id number] : 1940 83 From: Harish Schneider PCP: Dr. Kwabena Menjivar MD Status :ADM IN Location: [place] [address] Reason for Visit Reason for Visit: Diagnoses [...] % (Auto) 60.3, Lymph % (Auto) 30.5, Levy% (Auto) 7.9, Eos % (Auto) 0.7, Baso [...] with SCDs Charges/Coding Visit Charges Inpatient E&M: 08846 Subs Hosp L2 04/24/24 1418 <Electronically signed by Harish Baxter MD> Cosigner Signature (if applicable): CC: ~ Signed [facility] Work Phone: 1(784) 488-866303-17-2025 Progress note [facility] Medical Records Department [address] [place] [address] Progress Note - Hospitalist 04/24/24 0804 MR#: [id number] Acct: [id number] Name: YAS ROSA Rep #:[id number] : 1940 83 From: Harish Schneider PCP: Dr. Kwabena Menjivar MD Status :ADM IN Location: [place] [address] Reason for Visit Reason for Visit: Diagnoses [...] % (Auto) 60.3, Lymph % (Auto) 30.5, Levy% (Auto) 7.9, Eos % (Auto) 0.7, Baso [...] with SCDs Charges/Coding Visit Charges Inpatient E&M: 57945 Subs Hosp L2 04/24/24 1418 Cosigner Signature (if applicable): CC: ~ Signed [facility]03-16-2025 Progress note Author Keanu Alfred [facility] Note Date/Time April 23, 2024 12: 42pm [facility] Medical Records Department [address] [place] [address] Progress Note - Hospitalist 04/23/24 0834 MR#: [id number] Acct: [id number] Name: MOEYAS Brigido Rep #:[id number] : 1940 83 From: Keanu Alfred DO PCP: Dr. Kwabena Menjivar MD Status :ADM IN Location: [place] [address] Reason for Visit Reason for Visit: Diagnoses [...] for discharge. Charges/Coding Visit Charges Inpatient E&M: 15155 Subs Hosp L2 04/23/24 1242 <Electronically signed by Keanu Alfred DO> Cosigner Signature (if applicable): CC: ~ Signed [facility] Work Phone: 1(419) 455-724603-16-2025 Progress note [facility] Medical Records Department [address] [place] [address] Progress Note - Hospitalist 04/23/24 0834 MR#: [id number] Acct: [id number] Name: YAS ROSA Rep #:[id number] : 1940 83 From: Keanu Alfred DO PCP: Dr. Kwabena Menjivar MD Status :ADM IN Location: [place] [address]- 1 Reason for Visit Reason for Visit: [...] for discharge. Charges/Coding Visit Charges Inpatient E&M: 02626 Subs Hosp L2 04/23/24 1242 Cosigner Signature (if applicable): CC: ~ Signed [facility]03-15-2025 Progress note Author Keanu Alfred [facility] Note Date/Time April 22, 2024 1:2 1pm [facility] Medical Records Department [address] [place] [address] Progress Note - Hospitalist 04/22/24 0851 MR#: [id number] Acct: [id number] Name: YAS ROSA Rep #:[id number] : 1940 83 From: Keanu Alfred DO PCP: Dr. Kwabena Menjivar MD Status :ADM IN Location: [place] [address] Reason for Visit Reason for Visit: Diagnoses [...] for discharge. Charges/Coding Visit Charges Inpatient E&M: 17968 Subs Hosp L2 04/22/24 1325 <Electronically signed by Keanu Alfred DO> Cosigner Signature (if applicable): CC: ~ Signed [facility] Work Phone: 1(760) 765-952403-15-2025 Progress note [facility] Medical Records Department [address] [place] [address] Progress Note - Hospitalist 04/22/24 0851 MR#: [id number] Acct: [id number] Name: YAS ROSA Rep #:[id number] : 1940 83 From: Keanu Alfred DO PCP: Dr. Kwabena Menjivar MD Status :ADM IN Location: [place] [address]- Reason for Visit Reason for Visit: Diagnoses [...] for discharge. Charges/Coding Visit Charges Inpatient E&M: 36730 Subs Hosp L2 04/22/24 1321 Cosigner Signature (if applicable): CC: ~ Signed [facility]03-14-2025 Consult note Author Ciro Diego [facility] Note Date/Time April 21, 2024 4:3 2pm [facility] Medical Records Department [address] [place] [address] Consultation - Orthopedics 04/21/24 1621 MR#: [id number] Acct: [id number] Name: YAS ROSA Rep #:[id number] : 1940 83 From: Ciro Diego MD PCP: Dr. Kwabena Menjivar MD Status :[facility] H[facility] Consult Data Date of [...] has had tremendous difficulty being independently ambulatory. [facility] Medical History Anxiety Irritable bowel syndrome with [...] of upper extremity shows grade 0 finger solar installer pv, grade 0 finger abduction, grade 4 wrist [...] in agreement. Charges/Coding Visit Charges Inpatient E&M: 56318 Init Hosp L3 04/21/24 6031 <Electronically signed by Ciro Diego MD> Cosigner Signature (if applicable): CC: Dr. Kwabena Menjivar MD; Dr. Keanu Alfred DO~ Signed [facility] Work Phone: 1(964) 296-699203-14-2025 Consult note [facility] Medical Records Department [address] [place] [address] Consultation - Orthopedics 04/21/24 1621 MR#: [id number] Acct: [id number] Name: YAS ROSA Rep #:[id number] : 1940 83 From: Ciro Diego MD PCP: Dr. Kwabena Menjivar MD Status :ADM IN Location: [place] [address] HPI Consult Data Date of Consult: 04/21/24 [...] has had tremendous difficulty being independently ambulatory. [facility] Medical History Anxiety Irritable bowel syndrome with [...] of upper extremity shows grade 0 finger solar installer pv, grade 0 finger abduction, grade 4 wrist [...] in agreement. Charges/Coding Visit Charges Inpatient E&M: 22628 Init Hosp L3 04/21/24 1632 Cosigner Signature (if applicable): CC: Dr. Kwabena Menjivar MD; Dr. Keanu Alfred DO~ Signed [facility]03-14-2025 Progress note Author Keanu Alfred [facility] Note Date/Time April 21, 2024 1:5 7pm [facility] Medical Records Department [address] [place] [address] Progress Note - Hospitalist 04/21/24 0830 MR#: [id number] Acct: [id number] Name: YAS ROSA Brigido Rep #:[id number] : 1940 83 From: Keanu Alfred DO PCP: Dr. Kwabena Menjivar MD Status :ADM IN Location: [place] [address] Reason for Visit Reason for Visit: Diagnoses [...] evidence for diastolic dysfunction. Ordering Physician: Keanu lAfred Referring Physician: Kwabena Menjivar Performed By: Melida [...] with SCDs Charges/Coding Visit Charges Inpatient E&M: 16516 Subs Hosp L2 04/21/24 3673 <Electronically signed by Keanu Alfred DO> Cosigner Signature (if applicable): CC: ~ Signed [facility] Work Phone: 1(168) 285-380103-14-2025 Progress note [facility] Medical Records Department [address] [place] [address] Progress Note - Hospitalist 04/21/24 0830 MR#: [id number] Acct: [id number] Name: YAS ROSA Rep #:[id number] : 1940 83 From: Keanu Alfred DO PCP: Dr. Kwabena Menjivar MD Status :ADM IN Location: [place] [address] Reason for Visit Reason for Visit: Diagnoses [...] with SCDs Charges/Coding Visit Charges Inpatient E&M: 63033 Subs Hosp L2 04/21/24 5174 Cosigner Signature (if applicable): CC: ~ Signed [facility]03-13-2025 Progress note Author Keanu Alfred [facility] Note Date/Time April 20, 2024 1:5 7pm [facility] Medical Records Department [address] [place] [address] Progress Note - Hospitalist 04/20/24 0752 MR#: [id number] Acct: [id number] Name: YAS ROSA Rep #:[id number] : 1940 83 From: Keanu Alfred DO PCP: Dr. Kwabena Menjivar MD Status :[facility] Reason for Visit Reason for [...] 83.7 H, Lymph % (Auto) 9.8 L, Levy % (Auto) 5.7, Eos % (Auto) 0.0, [...] (Auto) 73.5 H, Lymph % (Auto) 17.6L, Levy % (Auto) 8.4, Eos % (Auto) 0.1, [...] use of iterative reconstruction technique). Reading Location: [facility]- Facial/Sinus 04/19/24 10:42 IMPRESSION: Mildly depressed fracture [...] use of iterative reconstruction technique). Reading Location: [facility] Head/Neck CTA 04/19/24 10:54 IMPRESSION: RIGHT CAROTID: Unremarkable LEFT CAROTID: Minimal plaque at the origin of the left internal carotid artery. VERTEBRALS: Unremarkable INTRACRANIAL: Unremarkable. One or more dose reduction techniques were used (e.g., Automated exposure control, adjustment of the mA and/or kV according to patient size, use of iterative reconstruction technique). Reading Location: [facility] Chest X-Ray 04/19/24 11:20 IMPRESSION: 1. [...] on recent facial bone CT. [facility] Cerv[facility] Sp[facility] MRI 04/19/24 15:02 IMPRESSION: 1. 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 2. Acquired mild to severe multilevel foraminal narrowing. See level by level comments above. 3. 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 [facility] Physical Ex[facility] Const alert and no apparent [...] with SCDs Charges/Coding Visit Charges Inpatient E&M: 72100 Subs Hosp L2 04/20/24 1257 <Electronically signed [...] doing CPR be futile. Procedures Hospitalists Procedures: 95279 Advncd Care Plan 30 Min 04/20/24 1357<Electronically signed by Keanu Alfred DO> Cosigner Signature (if applicable): cc: ~* Signed [facility] Work Phone: 1(381) 738-643603-13-2025 Evaluation note* Diagnosis Onset Date Resolution Status [...] 12:54pm Hypertension chronic April 20, 2024 12:54pm [facility] Work Phone: 1(410) 592-856103-13-2025 Evaluation note* Diagnosis Onset Date Resolution Status [...] April 3:15pm Anxiety and depression chronic [facility] 2024 3:15pm Bilateral arm weakness chronic [facility] 2024 3:15pm Cervical cord myelomalacia chronic April [...] Cervical myelopathy inactive April 27, 2024 3:15pm [facility] Work Phone: 1(699) 734-495403-13-2025 Evaluation note* Diagnosis Onset Date Resolution Status [...] April 27, 2024 3:15pm Orthostatic hypotension acute [facility] 2024 3:15pm Osteoarthritis acute April 3:15pm Severe dehydration acute April 27, 2024 3:15pm Status post cervical spinal fusion acute April 27, 2024 3:15pm Traumatic brain injury with loss of consciousness acute April 27 3:15pm Urinary incontinence acute [facility] 2024 3:15pm Urine retention acute April 3:15pm Anxiety and depression chronic [facility] 2024 3:15pm Bilateral arm weakness chronic [facility] 2024 3:15pm Chronic left shoulder pain chronic April 27, 2024 3:15pm GERD with esophagitis chronic [facility] 2024 3:15pm History of IBS chronic April [...] resolved April 3:15pm Left maxillary fracture resolved [facility] 2024 3:15pm Multiple falls resolved April 3:15pm Urinary tract infection resolved [facility] 2024 3:15pm Cervical myelopathy inactive April 27, 2024 3:15pm Constipation acute May 25, 2024 12:30pm Fecal incontinence acute May 25, 2024 12:30pm [facility] Work Phone: 1(934) 433-571503-13-2025 Evaluation note* Diagnosis Onset Date Resolution Status [...] 27, 2024 3:15pm Orthostatic hypotension acute [facility] 2024 3:15pm Osteoarthritis acute April 3:15pm Severe dehydration acute April 27, 2024 3:15pm Status post cervical spinal fusion acute April 27, 2024 3:15pm Traumatic brain injury with loss of consciousness acute April 27 3:15pm Urinary incontinence acute [facility] 2024 3:15pm Urine retention acute April 3:15pm Anxiety and depression chronic [facility] 2024 3:15pm Bilateral arm weakness chronic [facility] 2024 3:15pm Chronic left shoulder pain chronic April 27, 2024 3:15pm GERD with esophagitis chronic [facility] 2024 3:15pm History of IBS chronic April [...] Cervical myelopathy inactive June 01, 2024 3:28pm [facility] Work Phone: 1(967) 427-620003-13-2025 Evaluation note* Diagnosis Onset Date Resolution Status [...] April 3:15pm Anxiety and depression chronic [facility] 2024 3:15pm Bilateral arm weakness chronic [facility] 2024 3:15pm Chronic left shoulder pain chronic [...] Orthostatic lightheadedness acute August 05, 2024 3:43pm [facility] Work Phone: 1(940) 613-509103-13-2025 Evaluation note* Diagnosis Onset Date Resolution Status [...] 27, 2024 3:15pm Orthostatic hypotension acute [facility] 2024 3:15pm Osteoarthritis acute April 3:15pm Severe dehydration acute April 27, 2024 3:15pm Status post cervical spinal fusion acute April 27, 2024 3:15pm Traumatic brain injury with loss of consciousness acute April 27 3:15pm Urinary incontinence acute [facility] 2024 3:15pm Urine retention acute April 3:15pm Anxiety and depression chronic [facility] 2024 3:15pm Bilateral arm weakness chronic [facility] 2024 3:15pm Chronic left shoulder pain chronic April 27, 2024 3:15pm GERD with esophagitis chronic [facility] 2024 3:15pm History of IBS chronic April [...] Orthostatic lightheadedness acute August 06, 2024 1:22pm [facility] Work Phone: 1(277) 836-437703-13-2025 Evaluation note* Diagnosis Onset Date Resolution Status [...] acute April 3:15pm Anxiety and depression chronic [facility] 2024 3:15pm Bilateral arm weakness chronic [facility] 2024 3:15pm Chronic left shoulder pain chronic April 27, 2024 3:15pm GERD with esophagitis chronic [facility] 2024 3:15pm History of IBS chronic April [...] Orthostatic lightheadedness resolved August 06, 2024 1:22pm [facility] Work Phone: 1(416) 231-199403-13-2025 Progress note [facility] Medical Records Department [facility] [place] [address] [place] [address] Progress Note - Hospitalist 04/20/24 0752 MR#: [id number] Acct: [id number] Name: YAS ROSA Rep #:[id number] : 1940 83 From: Keanu Alfred DO PCP: Dr. Kwabena Menjivar MD Status :ADM IN Location: [place] [address] Reason for Visit Reason for Visit: Diagnoses [...] 83.7 H, Lymph % (Auto) 9.8 L, Levy % (Auto) 5.7, Eos % (Auto) 0.0, [...] (Auto) 73.5 H, Lymph % (Auto) 17.6L, Levy % (Auto) 8.4, Eos % (Auto) 0.1, [...] use of iterative reconstruction technique). Reading Location: [facility]--1 Facial/Sinus 04/19/24 10:42 IMPRESSION: Mildly depressed [...] use of iterative reconstruction technique). Reading Location: [facility]--1 Head/Neck CTA 04/19/24 10:54 IMPRESSION: RIGHT CAROTID: Unremarkable LEFT CAROTID: Minimal plaque at the origin of the left internal carotid artery. VERTEBRALS: Unremarkable INTRACRANIAL: Unremarkable. One or more dose reduction techniques were used (e.g., Automated exposure control, adjustment of the mA and/or kV according to patient size, use of iterative reconstruction technique). Reading Location: [facility]--1 Chest X-Ray 04/19/24 11:20 IMPRESSION: 1. No visible acute cardiopulmonary findings. 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 Consider outpatient CT chest. 2. Additional description as above. Reading Location: [facility] Brain MRI 04/19/24 15:02 IMPRESSION: 1. No [...] with SCDs Charges/Coding Visit Charges Inpatient E&M: 19920 Subs Hosp L2 04/20/24 1257 Cosigner Signature [...] doing CPR be futile. Procedures Hospitalists Procedures: 84145 Advncd Care Plan 30 Min 04/20/24 1357 Cosigner Signature (if applicable): cc: ~* Signed [facility]03-12-2025 Discharge summary Author Laureano Gallagher [facility] Note Date/Time April 19, 2024 3:2 7pm [facility] Medical Records Department [address] [place] [address] Emergency Department Summary 04/19/24 MR#: [id number] Acct: [id number] Name: YAS ROSA Rep #:[id number] : 1940 83 From: aLureano Colby PCP: Dr. Kwabena Menjivar MD Status :ADM IRINA Location: [place] [address] HPI History of Present Illness Chief Complaint: [...] headache. He does admit to neck pain. [facility] Medical History Irritable bowel syndrome with [...] 83.7 H Lymph % (Auto) 9.8 L Levy % (Auto) 5.7 Eos % (Auto) 0.0 [...] use of iterative reconstruction technique). Reading Location: [facility] Facial/Sinus 04/19/24 10:42 IMPRESSION: Mildly depressed [...] use of iterative reconstruction technique). Reading Location: [facility]-1 Head/Neck CTA 04/19/24 10:54 IMPRESSION: RIGHT CAROTID: Unremarkable LEFT CAROTID: Minimal plaque at the origin of the left internal carotid artery. VERTEBRALS: Unremarkable INTRACRANIAL: Unremarkable. One or more dose reduction techniques were used (e.g., Automated exposure control, adjustment of the mA and/or kV according to patient size, use of iterative reconstruction technique). Reading Location: [facility]-1 Chest X-Ray 04/19/24 11:20 IMPRESSION: 1. No visible acute cardiopulmonary findings. 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 Consider outpatient CT chest. 2. Additional description as above. Reading Location: [facility] EKG Initial EKG: Attestation: I personally reviewed and interpreted this EKG as follows: Comments: Normal sinus rhythm ventricular rate of 69 bpm Management Discussion w/another healthcare provider: Hospitalist (Dr Alfred) and Clinical Laboratory Medical Director (Dr Godinez) Discharge Plan Dx/Rx/DC Orders Clinical Impression: Fall, Closed fracture of left maxillary sinus, Epistaxis, Chronic left shoulderpain, Hypertension, Subconjunctival hemorrhage Disposition Disposition: Acute Care Hospital [facility] NIHSS NIHSS 1a. Level of Consciousness: Alert; [...] your Primary Care Provider. Call [facility] ([phone]) or report to the closest Emergency Room. Call 911 if necessary. 04/19/24 1527 <Electronically signed by Laureano Gallagher DO> Cosigner Signature (if applicable): CC: Dr. Kwabena Menjivar MD ~ Signed [facility] Work Phone: 1(122) 819-108103-12-2025 Consult note Author Yas Godinez [facility] Note Date/Time April 19, 2024 3:1 8pm [facility] Medical Records Department [address] [place] [address] Consultation - Surgical 04/19/24 1140 MR#: [id number] Acct: [id number] Name: YAS ROSA Rep #:[id number] : 1940 83 From: Yas Godinez MD PCP: Dr. Kwabena Menjivar MD Status :ADM IRINA Location: [place] [address] Assessment & Plan Assessment/Plan (1) Maxillary fracture, [...] 83.7 H, Lymph % (Auto) 9.8 L, Levy % (Auto) 5.7, Eos % (Auto) 0.0, [...] use of iterative reconstruction technique). Reading Location: [facility] Facial/Sinus 04/19/24 10:42 IMPRESSION: Mildly depressed [...] use of iterative reconstruction technique). Reading Location: [facility] Head/Neck CTA 04/19/24 10:54 IMPRESSION: RIGHT CAROTID: Unremarkable LEFT CAROTID: Minimal plaque at the origin of the left internal carotid artery. VERTEBRALS: Unremarkable INTRACRANIAL: Unremarkable. One or more dose reduction techniques were used (e.g., Automated exposure control, adjustment of the mA and/or kV according to patient size, use of iterative reconstruction technique). Reading Location: [facility] Chest X-Ray 04/19/24 11:20 IMPRESSION: 1. No visible acute cardiopulmonary findings. 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 Consider outpatient CT chest. 2. Additional description as above. Reading Location: [id number] Charges/Coding Multi Select Codes Visit Charges Office Visit/Consults: 27023 OV L5 New 60min 04/19/24 1518 <Electronically signed by Yas Godinez MD> Cosigner Signature (if applicable): CC: Dr. Kwabena Menjivar MD~ Signed [facility] Work Phone: 1(961) 877-954403-12-2025 History and physical note Author Keanu Alfred [facility] Note Date/Time April 19, 2024 2:0 4pm [facility] Medical Records Department [address] [place] [address] H&P Exam - Hospitalist 04/19/24 1323 MR#: [id number] Acct: [id number] Name: YAS ROSA Rep #:[id number] : 1940 83 From: Keanu Alfred DO PCP: Dr. Kwabena Menjivar MD Status :ADM IRINA Location: [place] [address] HPI - General General Date of Admission: [...] he has not seen the surgeon yet. [facility] Medical History (Updated 04/19/24 @ 13:32 by [...] 83.7 H, Lymph % (Auto) 9.8 L, Levy % (Auto) 5.7, Eos % (Auto) 0.0, [...] use of iterative reconstruction technique). Reading Location: [facility] Facial/Sinus 04/19/24 10:42 IMPRESSION: Mildly depressed [...] use of iterative reconstruction technique). Reading Location: [facility] Head/Neck CTA 04/19/24 10:54 IMPRESSION: RIGHT [...] 2. Additional description as above. Reading Location: [facility] Assessment & Plan Assessment/Plan (1) Syncope: PLAN: [...] I have informed ED RN and warehouse operations associate that patient will need to be seen [...] until Wednesday. Charges/Coding Visit Charges Inpatient E&M: 56306 Init Hosp L3 04/19/24 1404 <Electronically signed by Keanu Alfred DO> Cosigner Signature (if applicable): CC: Dr. Kwabena Menjivar MD; Dr. Keanu Alfred DO~ Signed [facility] Work Phone: 1(748) 420-833003-12-2025 Discharge summary [facility] Medical Records Department [address] [place] [address] Emergency Department Summary 04/19/24 MR#: [id number] Acct: [id number] Name: YAS ROSA Rep #:[id number] : 1940 83 From: Laureano Colby PCP: Dr. Kwabena Menjivar MD Status :ADM IRINA Location: [place] [address] HPI History of Present Illness Chief Complaint: [...] 83.7 H Lymph % (Auto) 9.8 L Levy % (Auto) 5.7 Eos % (Auto) 0.0 [...] use of iterative reconstruction technique). Reading Location: [facility] Facial/Sinus 04/19/24 10:42 IMPRESSION: Mildly depressed [...] use of iterative reconstruction technique). Reading Location: [facility] Head/Neck CTA 04/19/24 10:54 IMPRESSION: RIGHT CAROTID: Unremarkable LEFT CAROTID: Minimal plaque at the origin of the left internal carotid artery. VERTEBRALS: Unremarkable INTRACRANIAL: Unremarkable. One or more dose reduction techniques were used (e.g., Automated exposure control, adjustment of the mA and/or kV according to patient size, use of iterative reconstruction technique). Reading Location: [facility] Chest X-Ray 04/19/24 11:20 IMPRESSION: 1. No visible acute cardiopulmonary findings. 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 Consider outpatient CT chest. 2. Additional description as above. Reading Location: [facility] EKG Initial EKG: Attestation: I personally reviewed and interpreted this EKG as follows: Comments: Normal sinus rhythm ventricular rate of 69 bpm Management Discussion w/another healthcare provider: Hospitalist (Dr Alfred) and Clinical Laboratory Medical Director (Dr Godinez) Discharge Plan Dx/Rx/DC Orders Clinical Impression: Fall, Closed fracture of left maxillary sinus, Epistaxis, Chronic left shoulderpain, Hypertension, Subconjunctival hemorrhage Disposition Disposition: Acute Care Hospital [facility] NIHSS NIHSS 1a. Level of Consciousness: Alert; [...] your Primary Care Provider. Call [facility] ([phone]) or report tothe closest Emergency Room. Call 911 if necessary. 04/19/24 1527 Cosigner Signature (if applicable): CC: Dr. Kwabena Menjivar MD ~ Signed [facility]03-12-2025 Consult note [facility] Medical Records Department [address] [place] [address] Consultation - Surgical 04/19/24 1140 MR#: [id number] Acct: [id number] Name: YAS ROSA Rep #:[id number] : 1940 83 From: Yas Godinez MD PCP: Dr. Kwabena Menjivar MD Status :ADM IRINA Location: [place] [address] Assessment & Plan Assessment/Plan (1) Maxillary fracture, [...] a few weeks ago with another fall. [facility] Medical History Anxiety Irritable bowel syndrome with [...] 83.7 H, Lymph % (Auto) 9.8 L, Levy % (Auto) 5.7, Eos % (Auto) 0.0, [...] use of iterative reconstruction technique). Reading Location: [facility] Facial/Sinus 04/19/24 10:42 IMPRESSION: Mildly depressed [...] use of iterative reconstruction technique). Reading Location: [place] [address] Head/Neck CTA 04/19/24 10:54 IMPRESSION: RIGHT CAROTID: Unremarkable LEFT CAROTID: Minimal plaque at the origin of the left internal carotid artery. VERTEBRALS: Unremarkable INTRACRANIAL: Unremarkable. One or more dose reduction techniques were used (e.g., Automated exposure control, adjustment of the mA and/or kV according to patient size, use of iterative reconstruction technique). Reading Location: [place] [address] Chest X-Ray 04/19/24 11:20 IMPRESSION: 1. No visible acute cardiopulmonary findings. 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 Consider outpatient CT chest. 2. Additional description as above. Reading Location: [id number] Charges/Coding Multi Select Codes Visit Charges Office Visit/Consults: 92231 OV L5 New 60min 04/19/24 1518 Cosigner Signature (if applicable): CC: Dr. Kwabena Menjivar MD~ Signed [facility]03-12-2025 History and physical note [facility] Medical Records Department [address] [place] [address] H&P Exam - Hospitalist 04/19/24 1323 MR#: [id number] Acct: [id number] Name: YAS ROSA Rep #:[id number] : 1940 83 From: Keanu Alfred DO PCP: Dr. Kwabena Menjivar MD Status :ADM IRINA Location: [place] [address]- 1 HPI - General General Date of [...] he has not seen the surgeon yet. [facility] Medical History (Updated 04/19/24 @ 13:32 by [...] 83.7 H, Lymph % (Auto) 9.8 L, Levy % (Auto) 5.7, Eos % (Auto) 0.0, [...] use of iterative reconstruction technique). Reading Location: [facility] Head/Neck CTA 04/19/24 10:54 IMPRESSION: RIGHT CAROTID: Unremarkable LEFT CAROTID: Minimal plaque at the origin of the left internal carotid artery. VERTEBRALS: Unremarkable INTRACRANIAL: Unremarkable. One or more dose reduction techniques were used (e.g., Automated exposure control, adjustment of the mA and/or kV according to patient size, use of iterative reconstruction technique). Reading Location: [facility] Chest X-Ray 04/19/24 11:20 IMPRESSION: 1. No visible acute cardiopulmonary findings. 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 Consider outpatient CT chest. 2. Additional description as above. Reading Location: [facility] Assessment & Plan Assessment/Plan (1) Syncope: PLAN: [...] I have informed ED RN and warehouse operations associate that patient will need to be seen [...] until Wednesday. Charges/Coding Visit Charges Inpatient E&M: 35282 Init Hosp L3 04/19/24 1404 Cosigner Signature (if applicable): CC: Dr. Kwabena Menjivar MD; Dr. Keanu Alfred DO~ Signed [facility]03-12-2025 Radiology Diagnostic study note [facility] Imaging Services [address] [place], [place] [address] Chest 1 View MR#: [id number] Acct: [id number] Name: YAS ROSA Rep #: [id number] : 1940 M 83 From: Aura Andersen MD PCP: Dr. Kwabena Menjivar MD Status: REG ER Study:Chest 1 View Date of Exam: 5 Exam# [id number] Ordering Dr: Jennie Gallagher DO PROCEDURE: CHEST [...] 2. Additional description as above. Reading Location: [id number] CC: Dr. Kwabena Menjivar MD; Dr. Laureano Gallagher DO ~ Employee Development Specialist: Signed [facility]03-12-2025 Radiology Diagnostic study note [facility] Imaging Services [address] [place], [place] [address] STROKE CTA Head AND Neck W/Con MR#: [id number] Acct: [id number] Name: YAS ROSA Rep #: [id number] : 1940 M 83 From: Ag Luna MD PCP: Dr. Kwabena Menjivar MD Status: REG ER Study:STROKE CTA Head AND Neck W/Con Date of Exam: 04/19/24 Exam# [id number] Ordering Dr: Jennie Gallagher DO PROCEDURE: STROKE [...] use of iterative reconstruction technique). Reading Location: [place] [address] CC: Dr. Kwabena Menjivar MD; Dr. Laureano Gallagher DO ~ Employee Development Specialist: Signed [facility]03-12-2025 Radiology Diagnostic study note [facility] Imaging Services [address] [facility] [place] [address] Sinus/Facial Bone MR#: [id number] Acct: [id number] Name: YAS ROSA Rep #: [id number] : 1940 83 From: Ag Lnua MD PCP: Dr. Kwabena Menjivar MD Status: REG ER Study:Sinus/Facial Bone Date of Exam: Exam# [id number] Ordering Dr: Jennie Gallagher DO PROCEDURE: SINUS/FACIAL [...] use of iterative reconstruction technique). Reading Location: [place] [address] CC: Dr. Kwabena Menjivar MD; Dr. 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 Reading Location: [place] [address] CC: Dr. Kwabena Menjivar MD; Dr. Laureano Gallagher, DO ~ Employee Development Specialist: Signed [facility]09-06-2023 Discharge summary Author Keanu Holt [facility] October 14, 2022 10:45am Note Date/Time October 14, 2022 10:45am [facility] Physical Therapy [facility] [address] [facility] [address] [place] [address] / REHABILITATION SERVICES DISCHARGE SUMMARY MR#: [id number] Acct: [id number] Name: YAS ROSA Rep #: [id number] : 1940 81 From: Keanu Holt DPT, [...] please feel free to call me at [phone]. Thank you for the referral of thispatient. Sincerely, Keanu Holt, ROCHELLE, OCS, CSCS Balance/Gait/Functional tests Balance/Special Test Scores Oswestry Neck Score: 31 Quick DASH Score: 38.6350 Improvement % Improvement: 10 <Electronically signed by Keanu Holt DPT, GINA, CSCS> 10/14/22 1045 CC: Dr. William Menjivar MD ~ EBG Signed [facility] Work Phone: Discharge summary Author Harish Baxter [facility] Note Date/Time April 27, 2024 1:5 7pm [facility] Medical Records Department [address] [place] [address] Discharge Summary 04/27/24 1353 MR#: [id number] Acct: [id number] Name: YAS ROSA Rep #:[id number] : 1940 83 From: Harish Schneider PCP: Dr. Kwabena Menjivar MD Status :ADM IN Location: [facility] [id number] Providers Date of Admission: 04/20/24 Date [...] (Auto) 78.8 H, Lymph % (Auto) 14.3L, Levy % (Auto) 5.8, Eos % (Auto) 0.0, [...] fluoroscopic images were also obtained. Reading Location: [address] Cervical Spine X-Ray 04/26/24 11:05 IMPRESSION: Intraoperative fluoroscopy performed for anterior cervical discectomy and fusionsurgery. 10 fluoroscopic images were also obtained. Reading Location: [id number] Cervical Spine X-Ray 04/27/24 07:00 IMPRESSION: Osteopenia. Interval placement of a metallic fixation plate at the anterior margin of C3-C6. Interval placement of interbody spacer devices at C3-4, C4-5, and C5-6. No acute bony abnormality of the cervical spine. Similar moderate/severe degenerative disc disease at C6-7. [facility] Discharge Diet: Light diet [...] Provider: Kwabena Menjivar Consulting Providers: Ciro Diego; Ysa Godinez; Keanu Alfred Discharge Orders/Prescriptions Prescriptions: New [...] Self Care Charges/Coding Visit Charges Inpatient E&M: 46588 Disch Hosp >30min 04/27/24 5477 <Electronically signed by Harish Baxter MD> Cosigner Signature (if applicable): CC: Dr. Kwabena Menjivar MD; Dr. Harish Baxter MD~ Signed [facility] Work Phone: Discharge summary Author Jacoby Mendoza [facility] Note Date/Time August 09, 2024 12:50 pm [facility] Medical Records Department [address] [place] [address] Transfer to [facility] MR#: [id number] Acct: [id number] Name: YAS ROSA Rep #:[id number] : 1940 83 From: Jacoby Mendoza MD PCP: Dr. Kwabena Menjivar MD Status :ADM IN Certification of patient admission REQUIRED AT TIME OF ADMISSION. I CERTIFY THAT POST-HOSPITAL ECF SERVICES ARE REQUIRED TO BE GIVEN ON AN IN-PATIENT BASIS BECAUSE OF THE ABOVE NAMED PATIENT'S NEED FOR LONGTERM CARE ON A CONTINUING BASIS FOR THE [...] Requested for PT OT eval and social worker clinical to assist with discharge planning. 08/09/2024; patient [...] Recommendations/Changes: Continue Regular diet with texture/consistency per TANK FURNACE OPERATOR to optimize oral intakes. Will order 120mL [...] Collier DO; Dr. Yu Bradley MD ~ [facility] Work Phone: Discharge summary Author Buckagatha Rome [facility] Note Date/Time October 18, 2024 3:[address] [place] [address] System Medical Records Department [address] [place] [address] Emergency Department Summary 10/18/24 MR#: [id number] Acct: [id number] Name: YAS ROSA Rep #:[id number] : 1940 83 From: Buck Rome MD [...] Father , at 40 YOA of an ND Heart disease Other Hypertension Surgical History Status [...] 83.5 H Lymph % (Auto) 7.4 L Levy % (Auto) 8.0 Eos % (Auto) 0.2 [...] MD [Primary Care Provider] - Print Language: [place] Islander Disposition Disposition: Acute Care Hospital [facility] What to do if you have Problems For any increased pain, shortness of breath, bleeding, nausea or vomiting, chestpain, or any unexpected problems, contact your Primary Care Provider. Call [facility] ([phone]) or report to the closest Emergency Room. Call 911 if necessary. 10/18/24 033 <Electronically signed by Buck Rome MD> Cosigner Signature (if applicable): CC: Dr. Kwabena Menjivar MD ~ Signed [facility] Work Phone: Evaluation noteNo assessment information available [facility] Work Phone: Evaluation note* Diagnosis [...] 12:44pm Hypertension chronic April 19, 2024 12:44pm [facility] Work Phone: History and physical note Author Yu Bradley [facility] Note Date/Time August 05, 2024 4:11 pm [facility] Medical Records Department [address] [place] [address] H&P Exam - Hospitalist 08/05/24 1543 MR#: [id number] Acct: [id number] Name: YAS ROSA Rep #:[id number] : 1940 83 From: Yu Bradley MD PCP: Dr. Kwabena Menjivar MD Status :ADM IRINA Location: [place] [address] HPI - General General Date of Admission: 08/05/24 Date of Service: 08/05/24 Chief Complaint: Generalized weakness, lightheaded on standing HPI Narrative YAS MOE, is a 83-year-old male history of anxiety, IBS, depression, GERD, cervical myelopathy with surgery in April presented [facility] ED 08/05/2024 with complaint of worsening [...] at bedside, patient has been home from [place] for thepast couple weeks but has had [...] fever headache. No other new acute complaints [facility] Medical History Cervical myelopathy Angiectasia of large [...] bisacodyl 10 mg rectal suppository 10 mg PA X1 PRN Con stipation #0 ea 05/18/24 [...] tabs hydrocortisone acetate 25 mg 25 mg PA QHS #12 ea 05/25 Unknown Rx rectal suppository (An[facility]ol-[facility]) Allergy/AdvReac Type Severity Reaction Status Date / Time No Known Allergies Allergy Verified 08/05/24 11:37 Family History Father , at 40 YOA of an ND Heart disease Other Hypertension Surgical History Status [...] % (Auto) 57.7, Lymph % (Auto) 31.4, Levy% (Auto) 8.2, Eos % (Auto) 2.0, Baso [...] Clarity Clear, Urine pH 7.0, Ur Specific [place] 1.010, Urine Protein Negative, Urine Glucose (UA) [...] IMPRESSION: No acute intracranial process. Reading Location: [facility] Cervical Spine CT 08/05/24 12:10 IMPRESSION: No acute cervical fracture or subluxations. Moderate multilevel degenerative changes of the cervical spine as above. Cervical ACDF spanning C3-C6 with interbody spacers. Reading Location: [facility] Assessment & Plan Assessment/Plan (1) Orthostatic lightheadedness: [...] Bradley MD Charges/Coding Visit Charges Inpatient E&M: 81172 Init Hosp L2 08/05/24 1611 <Electronically signed by Yu Bradley MD> Cosigner Signature (if applicable): CC: Dr. Kwabena Menjivar MD; Dr. Yu Bradley MD~ Signed [facility] Work Phone: Hospital Discharge instructionsAdditional Instructions [facility]: [facility] Work Phone: Reason for referral (narrative)No reason for referral information availableWMercy Health Work Phone: Summary Purpose Family History Relationship Condition Age at Onset Recorded Date/T adia Not Specified Hypertension Unknown father Cardiac disease Unknown Advance Directives Advance Directive Response Recorded Date/ Time Living Will No November 11 8:37am Power of Anesthesiologist Assistant Certified No November 11 8:37am Advance Directive Response Recorded Date/ Time Living Will No February 25 11:01am Power of Anesthesiologist Assistant Certified No February 26, 2024 11:01am Living Will Yes April 19, 2024 11:02am Power of Anesthesiologist Assistant Certified Yes April 19 11:02am Name of Medical Power of Anesthesiologist Assistant Certified ? April 19, 2024 11:02am Advance Directive Response Recorded Date/ Time Living Will No February 25 11:01am Do you have a Healthcare Power of Anesthesiologist Assistant Certified? No February 26, 2024 11:01am Living Will Yes April 26, 2024 3:54pm Do you have a Healthcare Power of Anesthesiologist Assistant Certified? Yes April 26, 2024 3:54pm Name of Medical Power of Anesthesiologist Assistant Certified ? April 26, 2024 3:54pm Advance Directive Response Recorded Date/ Time Living Will No February 25 11:01am Do you have a Healthcare Power of Anesthesiologist Assistant Certified? No February 26, 2024 11:01am Living Will Yes April 29, 2024 5:19pm Do you have a Healthcare Power of Anesthesiologist Assistant Certified? Yes April 29, 2024 5:19pm Name of Medical Power of Anesthesiologist Assistant Certified RIVERA MOE April 29, 2024 5:19pm Living Will Yes April 26, 2024 3:54pm Do you have a Healthcare Power of Anesthesiologist Assistant Certified? Yes April 26, 2024 3:54pm Name of Medical Power of Anesthesiologist Assistant Certified ? April 26, 2024 3:54pm Advance Directive Response Recorded Date/ Time Living Will Yes April 29, 2024 5:19pm Do you have a Healthcare Power of Anesthesiologist Assistant Certified? Yes April 29, 2024 5:19pm Name of Medical Power of Anesthesiologist Assistant Certified RIVERA ROSA April 29, 2024 5:19pm Living Will Yes April 26, 2024 3:54pm Do you have a Healthcare Power of Anesthesiologist Assistant Certified? Yes April 26, 2024 3:54pm Name of Medical Power of Anesthesiologist Assistant Certified ? April 26, 2024 3:54pm Advance Directive Response Recorded Date/ Time Living Will Yes April 29, 2024 5:19pm Do you have a Healthcare Power of Anesthesiologist Assistant Certified? Yes April 29, 2024 5:19pm Name of Medical Power of Anesthesiologist Assistant Certified RIVERA ROSA April 29, 2024 5:19pm Living Will Yes April 26, 2024 3:54pm Do you have a Healthcare Power of Anesthesiologist Assistant Certified? Yes April 26, 2024 3:54pm Name of Medical Power of Anesthesiologist Assistant Certified ? April 26, 2024 3:54pm Do you have a Healthcare Power of Anesthesiologist Assistant Certified? Yes August 05, 2024 12:11pm Advance Directive Response Recorded Date/ Time Living Will Yes April 29, 2024 5:19pm Do you have a Healthcare Power of Anesthesiologist Assistant Certified? Yes April 29, 2024 5:19pm Name of Medical Power of Anesthesiologist Assistant Certified RIVERA ROSA April 29, 2024 5:19pm Living Will Yes April 26, 2024 3:54pm Do you have a Healthcare Power of Anesthesiologist Assistant Certified? Yes April 26, 2024 3:54pm Name of Medical Power of Anesthesiologist Assistant Certified ? April 26, 2024 3:54pm Do you have a Healthcare Power of Anesthesiologist Assistant Certified? Yes August 05, 2024 4:32pm Name of Medical Power of Anesthesiologist Assistant Certified rivera August 05, 2024 4:32pm Advance Directive Response Recorded Date/ Time Living Will Yes April 29, 2024 5:19pm Do you have a Healthcare Power of Anesthesiologist Assistant Certified? Yes April 29, 2024 5:19pm Name of Medical Power of Anesthesiologist Assistant Certified RIVERA ROSA April 29, 2024 5:19pm Living Will Yes April 26, 2024 3:54pm Do you have a Healthcare Power of Anesthesiologist Assistant Certified? Yes April 26, 2024 3:54pm Name of Medical Power of Anesthesiologist Assistant Certified ? April 26, 2024 3:54pm Do you have a Healthcare Power of Anesthesiologist Assistant Certified? Yes August 05, 2024 4:32pm Name of Medical Power of Anesthesiologist Assistant Certified rivera August 05, 2024 4:32pm Do you have a Healthcare Power of Anesthesiologist Assistant Certified? Yes August 11, 2024 9:10am Name of Medical Power of Anesthesiologist Assistant Certified August 11, 2024 9:10am Advance Directive Response Recorded Date/ Time Living Will Yes April 29, 2024 5:19pm Do you have a Healthcare Power of Anesthesiologist Assistant Certified? Yes April 29, 2024 5:19pm Name of Medical Power of Anesthesiologist Assistant Certified RIVERA ROSA April 29, 2024 5:19pm Do you have a Healthcare Power of Anesthesiologist Assistant Certified? Yes August 05, 2024 4:32pm Name of Medical Power of Anesthesiologist Assistant Certified rivera August 05, 2024 4:32pm Do you have a Healthcare Power of Anesthesiologist Assistant Certified? Yes August 11, 2024 9:10am Name of Medical Power of Anesthesiologist Assistant Certified August 11, 2024 9:10am Advance Directive Response Recorded Date/ Time Do you have a Healthcare Power of Anesthesiologist Assistant Certified? Yes August 05, 2024 4:32pm Name of Medical Power of Anesthesiologist Assistant Certified rivera August 05, 2024 4:32pm Do you have a Healthcare Power of Anesthesiologist Assistant Certified? Yes August 11, 2024 9:10am Name of Medical Power of Anesthesiologist Assistant Certified August 11, 2024 9:10am Advance Directive Response Recorded Date/ Time Do you have a Healthcare Power of Anesthesiologist Assistant Certified? Yes October 17, 2024 11:19pm Do you have a Healthcare Power of Anesthesiologist Assistant Certified? Yes August 05, 2024 4:32pm Name of Medical Power of Anesthesiologist Assistant Certified rivera August 05, 2024 4:32pm Do you have a Healthcare Power of Anesthesiologist Assistant Certified? Yes August 11, 2024 9:10am Name of Medical Power of Anesthesiologist Assistant Certified August 11, 2024 9:10am Chief Complaint and [...] 1:5 3pm SPINCAL CORD COMPRESSION W MYELOPATHY [facility] 2024 3:15pm SPINCAL CORD COMPRESSION W MYELOPATHY [facility] 2024 7:39pm SPINCAL CORD COMPRESSION W MYELOPATHY [facility] 2024 10:15am Arrhythmia April 30, 2024 5:0 6pm SPINCAL CORD COMPRESSION W MYELOPATHY [facility] 2024 12:34pm SPINCAL CORD COMPRESSION W MYELOPATHY [facility] 2024 12:36pm SPINCAL CORD COMPRESSION W MYELOPATHY [facility] 2024 12:27pm SPINCAL CORD COMPRESSION W MYELOPATHY [facility] 2024 11:03am SPINCAL CORD COMPRESSION W MYELOPATHY [facility] 2024 9:56am SPINCAL CORD COMPRESSION W MYELOPATHY [...] 025 3:15pm Foraminal stenosis of cervical region [facility] 2024 3:15pm GERD with esophagitis April 27, [...] 1:5 3pm SPINCAL CORD COMPRESSION W MYELOPATHY [facility] 2024 3:15pm SPINCAL CORD COMPRESSION W MYELOPATHY [facility] 2024 7:39pm SPINCAL CORD COMPRESSION W MYELOPATHY [facility] 2024 10:15am Arrhythmia April 30, 2024 5:0 6pm SPINCAL CORD COMPRESSION W MYELOPATHY [facility] 2024 12:34pm SPINCAL CORD COMPRESSION W MYELOPATHY [facility] 2024 12:36pm SPINCAL CORD COMPRESSION W MYELOPATHY [facility] 2024 12:27pm SPINCAL CORD COMPRESSION W MYELOPATHY [facility] 2024 11:03am SPINCAL CORD COMPRESSION W MYELOPATHY [facility] 2024 9:56am SPINCAL CORD COMPRESSION W MYELOPATHY [...] 3:1 5pm GERD (gastroesophageal reflux disease) [facility] 2024 3:15pm Muscle spasm April 27, [...] 2024 3:15pm Foraminal stenosis of cervical region [facility] 2024 3:15pm Laryngeal edema April 27, [...] 1:5 3pm SPINCAL CORD COMPRESSION W MYELOPATHY [facility] 2024 3:15pm SPINCAL CORD COMPRESSION W MYELOPATHY [facility] 2024 7:39pm SPINCAL CORD COMPRESSION W MYELOPATHY [facility] 2024 10:15am Arrhythmia April 30, 2024 5:0 6pm SPINCAL CORD COMPRESSION W MYELOPATHY [facility] 2024 12:34pm SPINCAL CORD COMPRESSION W MYELOPATHY [facility] 2024 12:36pm SPINCAL CORD COMPRESSION W MYELOPATHY [facility] 2024 12:27pm SPINCAL CORD COMPRESSION W MYELOPATHY [facility] 2024 11:03am SPINCAL CORD COMPRESSION W MYELOPATHY [facility] 2024 9:56am SPINCAL CORD COMPRESSION W MYELOPATHY [...] 2024 3:15pm Foraminal stenosis of cervical region [facility] 2024 3:15pm Laryngeal edema April 27, 2024 [...] 1:5 3pm SPINCAL CORD COMPRESSION W MYELOPATHY [facility] 2024 3:15pm SPINCAL CORD COMPRESSION W MYELOPATHY [facility] 2024 7:39pm SPINCAL CORD COMPRESSION W MYELOPATHY [facility] 2024 10:15am Arrhythmia April 30, 2024 5:0 6pm SPINCAL CORD COMPRESSION W MYELOPATHY [facility] 2024 12:34pm SPINCAL CORD COMPRESSION W MYELOPATHY [facility] 2024 12:36pm SPINCAL CORD COMPRESSION W MYELOPATHY [facility] 2024 12:27pm SPINCAL CORD COMPRESSION W MYELOPATHY [facility] 2024 11:03am SPINCAL CORD COMPRESSION W MYELOPATHY [facility] 2024 9:56am SPINCAL CORD COMPRESSION W MYELOPATHY [...] 1:5 3pm SPINCAL CORD COMPRESSION W MYELOPATHY [facility] 2024 3:15pm SPINCAL CORD COMPRESSION W MYELOPATHY [facility] 2024 7:39pm SPINCAL CORD COMPRESSION W MYELOPATHY [facility] 2024 10:15am Arrhythmia April 30, 2024 5:0 6pm SPINCAL CORD COMPRESSION W MYELOPATHY [facility] 2024 12:34pm SPINCAL CORD COMPRESSION W MYELOPATHY [facility] 2024 12:36pm SPINCAL CORD COMPRESSION W MYELOPATHY [facility] 2024 12:27pm SPINCAL CORD COMPRESSION W MYELOPATHY [facility] 2024 11:03am SPINCAL CORD COMPRESSION W MYELOPATHY [facility] 2024 9:56am SPINCAL CORD COMPRESSION W MYELOPATHY [...] 1:5 3pm SPINCAL CORD COMPRESSION W MYELOPATHY [facility] 2024 3:15pm SPINCAL CORD COMPRESSION W MYELOPATHY [facility] 2024 7:39pm SPINCAL CORD COMPRESSION W MYELOPATHY [facility] 2024 10:15am Arrhythmia April 30, 2024 5:0 6pm SPINCAL CORD COMPRESSION W MYELOPATHY [facility] 2024 12:34pm SPINCAL CORD COMPRESSION W MYELOPATHY [facility] 2024 12:36pm SPINCAL CORD COMPRESSION W MYELOPATHY [facility] 2024 12:27pm SPINCAL CORD COMPRESSION W MYELOPATHY [facility] 2024 11:03am SPINCAL CORD COMPRESSION W MYELOPATHY [facility] 2024 9:56am SPINCAL CORD COMPRESSION W MYELOPATHY [...] 1:5 3pm SPINCAL CORD COMPRESSION W MYELOPATHY [facility] 2024 3:15pm SPINCAL CORD COMPRESSION W MYELOPATHY [facility] 2024 7:39pm SPINCAL CORD COMPRESSION W MYELOPATHY [facility] 2024 10:15am Arrhythmia April 30, 2024 5:0 6pm SPINCAL CORD COMPRESSION W MYELOPATHY [facility] 2024 12:34pm SPINCAL CORD COMPRESSION W MYELOPATHY [facility] 2024 12:36pm SPINCAL CORD COMPRESSION W MYELOPATHY [facility] 2024 12:27pm SPINCAL CORD COMPRESSION W MYELOPATHY [facility] 2024 11:03am SPINCAL CORD COMPRESSION W MYELOPATHY [facility] 2024 9:56am SPINCAL CORD COMPRESSION W MYELOPATHY [...] 1:5 3pm SPINCAL CORD COMPRESSION W MYELOPATHY [facility] 2024 3:15pm SPINCAL CORD COMPRESSION W MYELOPATHY [facility] 2024 7:39pm SPINCAL CORD COMPRESSION W MYELOPATHY [facility] 2024 10:15am Arrhythmia April 30, 2024 5:0 6pm SPINCAL CORD COMPRESSION W MYELOPATHY [facility] 2024 12:34pm SPINCAL CORD COMPRESSION W MYELOPATHY [facility] 2024 12:36pm SPINCAL CORD COMPRESSION W MYELOPATHY [facility] 2024 12:27pm SPINCAL CORD COMPRESSION W MYELOPATHY [facility] 2024 11:03am SPINCAL CORD COMPRESSION W MYELOPATHY [facility] 2024 9:56am SPINCAL CORD COMPRESSION W MYELOPATHY ril 2024 10:35am SPINCAL CORD COMPRESSION W MYELOPATHY [facility] 2024 2:26pm LABWORK May 22, 2024 5:0 [...] 3:15pm Foraminal stenosis of cervical region [facility] 2024 3:15pm Laryngeal edema April 27, 2024 [...] 1:5 3pm SPINCAL CORD COMPRESSION W MYELOPATHY [facility] 2024 3:15pm SPINCAL CORD COMPRESSION W MYELOPATHY [facility] 2024 7:39pm SPINCAL CORD COMPRESSION W MYELOPATHY [facility] 2024 10:15am Arrhythmia April 30, 2024 5:0 6pm SPINCAL CORD COMPRESSION W MYELOPATHY [facility] 2024 12:34pm SPINCAL CORD COMPRESSION W MYELOPATHY [facility] 2024 12:36pm SPINCAL CORD COMPRESSION W MYELOPATHY [facility] 2024 12:27pm SPINCAL CORD COMPRESSION W MYELOPATHY [facility] 2024 11:03am SPINCAL CORD COMPRESSION W MYELOPATHY [facility] 2024 9:56am SPINCAL CORD COMPRESSION W MYELOPATHY [...] 3:1 5pm Postural dizziness with near syncope [facility] 2024 3:15pm Urinary hesitancy April [...] 2024 3:15pm Foraminal stenosis of cervical region [facility] 2024 3:15pm Laryngeal edema April 27, 2024 [...] 1:5 3pm SPINCAL CORD COMPRESSION W MYELOPATHY [facility] 2024 3:15pm SPINCAL CORD COMPRESSION W MYELOPATHY [facility] 2024 7:39pm SPINCAL CORD COMPRESSION W MYELOPATHY [facility] 2024 10:15am Arrhythmia April 30, 2024 5:0 6pm SPINCAL CORD COMPRESSION W MYELOPATHY [facility] 2024 12:34pm SPINCAL CORD COMPRESSION W MYELOPATHY [facility] 2024 12:36pm SPINCAL CORD COMPRESSION W MYELOPATHY [facility] 2024 12:27pm SPINCAL CORD COMPRESSION W MYELOPATHY [facility] 2024 11:03am SPINCAL CORD COMPRESSION W MYELOPATHY [facility] 2024 9:56am SPINCAL CORD COMPRESSION W MYELOPATHY [...] 2024 3:15pm Foraminal stenosis of cervical region [facility] 2024 3:15pm Laryngeal edema April 27, 2024 [...] Date SPINCAL CORD COMPRESSION W MYELOPATHY [facility] 2024 3:15pm SPINCAL CORD COMPRESSION W MYELOPATHY [...] 2024 5:00a m Chief Complaint Admit Date [facility] May 25, 2024 12: 30pm K59.00 [...] 2 025 1:22pm Chief Complaint Admit Date [facility] May 25, 2024 12: 30pm [id number] [...] section and content) DATE CREATED AUTHOR 08/04/2017 [facility] ([place]) DATE CREATED AUTHOR AUTHOR'S ORGANIZ ATION 09/23/2024 [facility] DATE CREATED AUTHOR AUTHOR'S ORGANIZ ATION 10/08/2024 [facility] Care Teams (unrecognized sec tion and [...] Sta rt: April 25, 2024 Ana Rosa Hoawrd ONCOLOGY CONSULTANT, ONCOLOGY CONSULTANT-C Attending Provider Active Start: April 25, 2024 [...] Dr. Corazon Wright DO Attending Provider Act deobrah Start: May 01, 2024 Dr. Corazon Wright [...] Status: Active Member Role Status Dates Dr. Kwaebna Menjivar [...] End: May 22, 2024 Angelika Nowak NP, ONCOLOGY CONSULTANT-C Attending Provider Active Start: May 22, 2024 [...] End: May 30, 2024 Angelika Nowak NP ONCOLOGY CONSULTANT-C Attending Provider Active Start: May 30, 2024 [...] rt: April 25, 2024 Ana Rosa Howard ONCOLOGY CONSULTANT, ONCOLOGY CONSULTANT-C Attending Provider Active Start: April 25, 2024 [...] End: May 22, 2024 Angelika Nowak NP, ONCOLOGY CONSULTANT-C Attending Provider Active Start: May 22, 2024 [...] End: May 30, 2024 Angelika Nowak NP ONCOLOGY CONSULTANT-C Attending Provider Active Start: May 30, 2024 [...] Active Member Role/Relationship Status Dates Dr. Kwabena Menjivra MD Primary Care Provider Acti ve Start: [...] End: May 22, 2024 Angelika Nowak NP ONCOLOGY CONSULTANT-C Attending Provider Active Start: May 22, 2024 [...] Provider Active Start: May 25, 2024 Sonia Ibsell NP-C Referring Provider Active Start: May 25, [...] 2024 End: May 30, 2024 Angelika Nowak ONCOLOGY CONSULTANT ONCOLOGY CONSULTANT-C Attending Provider Active Start: May 30, 2024 [...] 2024 End: June 12, 2024 Angelika Nowak ONCOLOGY CONSULTANT ONCOLOGY CONSULTANT-C Attending Provider Active Start: June 12, 2024 [...] Acti ve Start: August 14, 2024 Keven KIRKPATRCIK MD Attending Provider Active Start: August 14, [...] 2024 End: June 21, 2024 Angelika Nowak ONCOLOGY CONSULTANT, ONCOLOGY CONSULTANT-C Attending Provider Active Start: June 21, 2024 [...] 2024 End: May 30, 2024 Angelika Tickton ONCOLOGY CONSULTANT, ONCOLOGY CONSULTANT-C Attending Provider Active Start: May 30, 2024 [...] End: June 12, 2024 Angelika Nowak NP, ONCOLOGY CONSULTANT-C Attending Provider Active Start: June 12, 2024 [...] 2024 End: June 21, 2024 Angelika Nowak ONCOLOGY CONSULTANT, ONCOLOGY CONSULTANT-C Attending Provider Active Start: June 21, 2024 End: June 21, 2024 Team Status: Active Member Role/Relationship Status Dates Dr. Kwabena eMnjivar MD Primary Care Provider Acti ve Start: [...] 2024 End: August 14, 2024 Angelika Nowak ONCOLOGY CONSULTANT, ONCOLOGY CONSULTANT-C Attending Provider Active Start: August 14, 2024 [...] 21, 2024 End: June 21, 2024 Angelika oNwak NP, ONCOLOGY CONSULTANT-C Attending Provider Active Start: June 21, 2024 [...] End: August 14, 2024 Angelika Nowak NP, ONCOLOGY CONSULTANT-C Attending Provider Active Start: August 14, 2024 [...] BE BASED ON THE PRIMARY CLINICAL RECORDS. [employer] [facility]. provides no warranty or guarantee of the accuracy or completeness of information in this document.
[2024-10-18 05:13] LABS: Magnesium 2.0 mg/dL (1.5-2.2)
[2024-10-18] MEDS: 0.9% Normal Saline (1000mL) 1,000 ML 100 ML IV ×2 (05:32→15:28)
[2024-10-18 06:04] LABS: Cholesterol 138 mg/dL (<=200); Low Density Lipoprotein Calc. 78 mg/dL; Triglycerides 89 mg/dL; Very Low Density Lipoprotein 18 mg/dL (5-40); Vitamin B12 934 pg/mL (180-914); cholesterol:hdl ratio screen 3.28
[2024-10-18 06:54] LABS: FOLATES,SERUM (FOLIC ACID) 10.40 ng/mL (4.60-34.80)
[2024-10-18 07:27] LABS: Troponin T High Sensitivity 49 ng/L (<=22)
--- NOTE | 2024-10-18 08:01 | PCM.CONS.C ---
Assessment & Plan Assessment/Plan (1) Near syncope: PLAN: Patient has a history of recurrent near syncope. He appears to be mildly dehydrated by laboratory evaluation. GFR is normal. He also has a history of what sounds to be left sided weakness from an uncertain etiology. The patient was orthostatic by orthostatic blood pressures in the emergency department and treated with IV fluids. He does not remember if he took his midodrine but his blood pressures have been elevated in the hospital since admission. Telemetry does not show any significant ectopy. I would recommend the patient be continued with better hydration in his home environment, compression socks, and careful attention to change of position. The patient apparently lives alone but has family that comes and checks on him. He would probably benefit from home health and transition back to his home living environment or alternatively consideration for assisted living. At this point, do not feel that any further evaluation is indicated from a cardiovascular standpoint. Should things change please reconsult us. PLAN: Plan 1. Recommend continue with midodrine if blood pressure less than 120 systolic. 2. Continue to keep patient well-hydrated and consider compression socks. 3. Patient can follow-up with the [facility] as indicated following discharge. I do not feel that this is a cardiovascular issue primarily but related to his orthostatic hypotension. HPI Consult Data Date of Consult: 10/18/24 HPI Narrative Reason for Consultation: Near syncope HPI Narrative: YAS ROSA, is a 83 M who presents from his home with 2 episodes of near syncope yesterday. Patient reports that he was seated on the commode and after urinating. He went to stand up and his left leg gave out from him and he was lightheaded and dizzy at the time. He was able to lower himself to the floor and this resolved. A similar episode occurred later in the same morning. He did not hurt himself. The patient does have a history of orthostatic hypotension with multiple falls in the past. He did have trauma in April 2024 when he lost control of his left side and fell to the ground dislocating his left shoulder and injuring his face and nose. The patient also notes that he cannot use his left hand and he has weakness on his left and his left leg and left side that was present prior to the April event. He denies any history of TIA or CVA. The patient is on midodrine in his home environment due to his history of orthostatic hypotension. He is to take it if his systolic blood pressure is less than 120 he does not remember if he took it yesterday or not. His blood pressures been 180 systolic this morning. The patient denies any history of palpitations fluttering shortness of breath or dyspnea on exertion he has no lower extremity edema. Patient denies any prior cardiac history. In the emergency department yesterday he was documented to be profoundly orthostatic and has been replaced with IV fluids. He does report he has not been drinking appropriately in his home environment. Since admission telemetry has shown no significant ectopy he is in normal sinus rhythm with occasional PVCs. [facility] Medical History Cervical myelopathy Angiectasia of large intestine History of gastric polyp GERD with esophagitis Postural dizziness with near syncope Bilateral arm weakness Osteoarthritis Anxiety and depression Ventral hernia Loss of hearing Wears glasses Wears dentures Alcohol use History of IBS Heartburn Former smoker History of stress test Home Medications ?Medication ?Instructions ?Recorded ?Last Taken ?Type sennosides 8.6 mg-docusate sodium 2 tab PO BID laxative #0 tabs 04/27/24 Unknown Rx 50 mg tablet (Stimulant Laxative Plus) midodrine 5 mg tablet 10 mg (2 x 5 mg) PO 0700,1100,1500 05/18/24 Unknown Rx #0 tabs mirtazapine 15 mg tablet 15 mg PO QHS #0 tabs 05/18/24 Unknown Rx pantoprazole 40 mg tablet,delayed 40 mg PO BID #0 tabs 05/18/24 Unknown Rx release bupropion HCl 150 mg 24 hr tablet, 150 mg PO DAILY depression 08/05/24 Unknown History extended release acetaminophen 325 mg tablet 650 mg (2 x 325 mg) PO Q6H PRN PRN 08/09/24 Unknown Rx Pain 1-10 Or Fever >100.7 #0 tabs albuterol sulfate 2.5 mg/3 mL 2.5 mg (3 mL) inhalation Q2H PRN 08/09/24 Unknown Rx (0.083 %) solution for nebulization PRN SOB &/OR WHEEZING #0 mL duloxetine 30 mg capsule,delayed 30 mg PO DAILY #0 caps 08/09/24 Unknown Rx release food supplemt, lactose-reduced 120 ml PO 4X/DAY #0 mL 08/09/24 Unknown Rx 0.08 gram-1.5 kcal/mL oral liquid (Ensure Plus High Protein) Allergy/AdvReac Type Severity Reaction Status Date / Time No Known Allergies Allergy Verified 10/17/24 23:16 Family History Father , at 40 YOA of an ME Heart disease Other Hypertension Surgical History Status post cervical spinal fusion History of esophagogastroduodenoscopy (EGD) Hx of colonoscopy History of tonsillectomy and adenoidectomy History of appendectomy Social History household members: none and other details: He is . Ex is Nan and she still is in contact. housing: apartment number of children: 2 Smoking Status: Former smoker quit date: 02/09/68 how long ago did patient quit smokin years alcohol intake: current alcohol intake frequency: holidays/special occasions only details: Tells me that he never drinks now. Tells me he drank too much in past. substance use type: does not use ROS Constitutional Constitutional: Reports as per HPI Eyes Eyes: Reports systems reviewed and no addt'l complaints, except as documented ENT HEENT: Reports as per HPI Cardiovascular Cardiovascular: Reports as per HPI Respiratory/Chest Respiratory/Chest: Reports as per HPI Gastrointestinal Gastrointestinal: Reports as per HPI Genitourinary Genitourinary: Reports as per HPI Musculoskeletal Musculoskeletal: Reports as per HPI Integumentary Integumentary: Reports systems reviewed and no addt'l complaints, except as documented Neurologic Neurologic: Reports as per HPI Psychiatric Psychiatric: Reports systems reviewed and no addt'l complaints, except as documented Endocrine Endocrinology: Reports systems reviewed and no addt'l complaints, except as documented Hematologic/Lymphatic Hematologic/Lymphatic: Reports systems reviewed and no addt'l complaints, except as documented Allergic/Immunologic Allergic/Immunologic: Reports systems reviewed and no addt'l complaints, except as documented Physical Exam Const alert and oriented x3 Constitutional Narrative: Seems confused about remote events and difficulty recalling some of his details of medical history. HEENT normocephalic Eyes EOMs intact bilaterally Neck no JVD and no carotid bruits Chest inspection of chest normal Resp normal respiratory effort and clear to auscultation bilaterally Cardio Rate: regular rate Rhythm: regular rhythm Heart Sounds: S1 normal and S2 normal; Negative for click, gallop or murmur GI normal to inspection, nondistended, normoactive bowel sounds Extremity no pedal edema Neuro Neuro Narrative: Alert and oriented x 3 Psych mental status grossly normal Charges/Coding Visit Charges Inpatient E&M: 93725 Init Hosp L2 Objective Data Vital Signs: Vital Signs Temp Pulse Resp BP Pulse Ox O2 Del Method 97.8 F 76 18 183/82 H 96 Room Air 10/18/24 05:00 10/18/24 05:00 10/18/24 05:00 10/18/24 05:00 10/18/24 05:00 10/18/24 05:34 Oxygen Delivery Method Room Air Weight: 148 lb 5.938 oz Body Mass Index (BMI) 22.4 Intake & Output: Intake and Output for Last 24 Hours 10/16/24 10/17/24 10/18/24 23:59 23:59 23:59 Intake Total 1999 / 1999 Output Total 325 / 325 Balance 1675 / 1675 Lab / Micro Data Attestation: I reviewed the patient's lab results. 10/18/24 00:04 10/18/24 00:04 Labs: Laboratory Results - last 24 hr 10/18/24 00:04: WBC 14.7 H, RBC 4.12 L, Hgb 11.2 L, Hct 33.9 L, MCV 82.3, MCH 27.2, MCHC 33.0, RDW Std Deviation 37.1, RDW Coeff of Delia 12.3, Plt Count 325, MPV 8.6, Immature Gran % (Auto) 0.700, Neut % (Auto) 83.5 H, Lymph % (Auto) 7.4 L, [place] % (Auto) 8.0, Eos % (Auto) 0.2, Baso % (Auto) 0.2, Absolute Neuts (auto) 12.3 H, Absolute Lymphs (auto) 1.09, Nucleated RBC % 0, Sodium 136, Potassium 3.9, Chloride 97 L, Carbon Dioxide 25.2, Anion Gap 14, BUN 24 H, Creatinine 0.97, Estim Creat Clear Calc 56.80, Est GFR (MDRD) Non-Af 78, BUN/Creatinine Ratio 24.8 H, Glucose 98, Calcium 9.7, Magnesium 2.0 10/18/24 03:35: Urine Color Yellow, Urine Clarity Clear, Urine pH 6.0, Ur Specific [place] 1.020, Urine Protein 15 H, Urine Glucose (UA) Normal, Urine Ketones 5 H, Urine Occult Blood Negative, Urine Nitrite Negative, Urine Bilirubin Negative, Urine Urobilinogen 1 H, Ur Leukocyte Esterase Negative, Urine RBC 0 SEEN, Urine WBC 0-5 SEEN, Ur Squamous Epith Cells 0 SEEN, Amorphous Sediment 1+, Urine Bacteria 2+, Urine Mucus 0 SEEN 10/18/24 04:55: Phosphorus 3.7, Triglycerides 89, Cholesterol 138, LDL Cholesterol, Calc 78, VLDL Cholesterol 18, HDL Cholesterol 42, Cholesterol/HDL Ratio 3.28, Vitamin B12 934 H, Serum Folate 10.40, TSH 1.080 10/18/24 06:18: Troponin T High Sens 49 H D Micro: Microbiology 10/18/24 02:11 Stool Stool Occult Blood (JERMAINE) - Final Rhythm Strip Rhythm Strip: Sinus Rhythm Rate: 70 Cardiology Labs/Tests 10/18/24 00:04: WBC 14.7 H, RBC 4.12 L, Hgb 11.2 L, Hct 33.9 L, MCV 82.3, MCH 27.2, MCHC 33.0, Plt Count 325, MPV 8.6, Immature Gran % (Auto) 0.700, Neut % (Auto) 83.5 H, Lymph % (Auto) 7.4 L, [place] % (Auto) 8.0, Eos % (Auto) 0.2, Baso % (Auto) 0.2, Absolute Neuts (auto) 12.3 H, Nucleated RBC % 0, Sodium 136, Potassium 3.9, Chloride 97 L, Carbon Dioxide 25.2, Anion Gap 14, BUN 24 H, Creatinine 0.97, Est GFR (MDRD) Non-Af 78, BUN/Creatinine Ratio 24.8 H, Glucose 98, Calcium 9.7, Magnesium 2.0 10/18/24 03:35: Urine Color Yellow, Urine Clarity Clear, Urine pH 6.0, Ur Specific [place] 1.020, Urine Protein 15 H, Urine Glucose (UA) Normal, Urine Ketones 5 H, Urine Occult Blood Negative, Urine Nitrite Negative, Urine Bilirubin Negative, Urine Urobilinogen 1 H, Ur Leukocyte Esterase Negative, Urine RBC 0 SEEN, Urine WBC 0-5 SEEN 10/18/24 04:55: Phosphorus 3.7, Triglycerides 89, Cholesterol 138, VLDL Cholesterol 18, HDL Cholesterol 42, Cholesterol/HDL Ratio 3.28 Rhythm: EKG: ECHO: Stress Test: Cardiac Cath: PCI: CT Surgery: Holter monitor: EPS: PPM: CXR: Chest CT Scan: GERTRUDIS Risk Score for UA/STEMI Assesmment (YES = 1) Risk Stratification Applicable: No
[2024-10-18 09:49] LABS: Troponin T High Sens 2 HR 54 ng/L (<=22)
[2024-10-18] MEDS: Heparin Injection (Vial) 5,000 UNIT/ML VIAL 5000 UNIT SC ×2 (11:01→21:50)
[2024-10-18] MEDS: Senna/Docusate Sodium 1 Tablet 2 TABLET PO ×2 (11:02→21:51)
[2024-10-18] MEDS: buPROPion (XL) 150 MG TABLET.XL PO (11:02)
[2024-10-18] MEDS: Ensure Plus High Protein 120 ML LIQUID PO ×4 (11:06→21:50)
[2024-10-18 12:14] LABS: Troponin T High Sens 4 HR 61 ng/L (<=22)
--- NOTE | 2024-10-18 15:43 | PCM.PN.HOSP ---
Reason for Visit Chief Complaint: Near Syncope x 3. Objective Data Objective Data Vital Signs: Vital Signs Temp Pulse Resp BP Pulse Ox O2 Del Method 97.8 F 76 18 183/82 H 96 Room Air 10/18/24 05:00 10/18/24 05:00 10/18/24 05:00 10/18/24 05:00 10/18/24 05:00 10/18/24 05:34 Oxygen Delivery Method Room Air Weight: 148 lb 5.938 oz Body Mass Index (BMI) 22.4 Intake & Output: Intake and Output for Last 24 Hours 10/16/24 10/17/24 10/18/24 23:59 23:59 23:59 Intake Total 1999 / 1999 Output Total 325 / 325 Balance 1675 / 1675 Lab / Micro Data 10/18/24 00:04 10/18/24 00:04 Labs: Laboratory Results - last 24 hr 10/18/24 00:04: WBC 14.7 H, RBC 4.12 L, Hgb 11.2 L, Hct 33.9 L, MCV 82.3, MCH 27.2, MCHC 33.0, RDW Std Deviation 37.1, RDW Coeff of Delia 12.3, Plt Count 325, MPV 8.6, Immature Gran % (Auto) 0.700, Neut % (Auto) 83.5 H, Lymph % (Auto) 7.4 L, [place] % (Auto) 8.0, Eos % (Auto) 0.2, Baso % (Auto) 0.2, Absolute Neuts (auto) 12.3 H, Absolute Lymphs (auto) 1.09, Nucleated RBC % 0, Sodium 136, Potassium 3.9, Chloride 97 L, Carbon Dioxide 25.2, Anion Gap 14, BUN 24 H, Creatinine 0.97, Estim Creat Clear Calc 56.80, Est GFR (MDRD) Non-Af 78, BUN/Creatinine Ratio 24.8 H, Glucose 98, Calcium 9.7, Magnesium 2.0 10/18/24 03:35: Urine Color Yellow, Urine Clarity Clear, Urine pH 6.0, Ur Specific [place] 1.020, Urine Protein 15 H, Urine Glucose (UA) Normal, Urine Ketones 5 H, Urine Occult Blood Negative, Urine Nitrite Negative, Urine Bilirubin Negative, Urine Urobilinogen 1 H, Ur Leukocyte Esterase Negative, Urine RBC 0 SEEN, Urine WBC 0-5 SEEN, Ur Squamous Epith Cells 0 SEEN, Amorphous Sediment 1+, Urine Bacteria 2+, Urine Mucus 0 SEEN 10/18/24 04:55: Phosphorus 3.7, Triglycerides 89, Cholesterol 138, LDL Cholesterol, Calc 78, VLDL Cholesterol 18, HDL Cholesterol 42, Cholesterol/HDL Ratio 3.28, Vitamin B12 934 H, Serum Folate 10.40, TSH 1.080 10/18/24 06:18: Troponin T High Sens 49 H D Micro: Microbiology 10/18/24 02:11 Stool Stool Occult Blood (JERMAINE) - Final Physical Exam Narrative Seen and examined. Patient has chronic left upper extremity shoulder dislocation/deformity and not using his left upper extremity. Also has a left lower extremity weakness since April 2024 which has progressed and left leg gave out 1 day before admission. Had near syncope. Denies passing out or LOC. No UTI symptoms. Last syncope was 3 months ago. Physical exam General: Alert, Oriented x3, Cooperative HEENT: Atraumatic, PERRLA, EOMI, Normocephalic. Oral: No Gingival or Mucosal Lesions/ Ulcerations Neck: Supple, No JVD, Negative Carotid Bruits Chest wall/Lungs: Air entry diminished in bilateral lung bases. No crepitation/rhonchi Cardiovascular: Regular rate and rhythm, Normal S1,S2, systolic murmur 3/6 LLSB Abdomen: Bowel Sounds Present, Soft, Non Tender, Non-Distended : No dysuria. No renal angle tenderness. No suprapubic tenderness. Extremities: No edema, Capillary Refill Less than 3 Seconds Skin: No rashes, No breakdown Musculoskeletal: Chronic left upper extremity weakness with shoulder deformity. Left thigh and knee joints 4+/5. Right thigh and knee joints 5/5. No Tenderness to Palpation of Joints or Extremities Neurological: Cranial nerves II-XII grossly intact, DTR 2+/4. No acute focal neurological deficit. Psych/Mental Status: Flat affect Assessment & Plan Assessment/Plan (1) Orthostatic hypotension: (2) Postural dizziness with near syncope: (3) Dehydration: (4) Generalized weakness: (5) Poor fluid intake: (6) Leukocytosis: QUALIFIERS: Leukocytosis type: unspecified Qualified Code(s): D72.829 - Elevated white blood cell count, unspecified (7) BPPV (benign paroxysmal positional vertigo): QUALIFIERS: Laterality: unspecified laterality Qualified Code(s): H81.10 - Benign paroxysmal vertigo, unspecified ear PLAN: Plan 83-year-old gentleman was admitted with near syncopal episodes mainly when he tries to urinates. His left leg gave out more weaker than baseline or day before admission and was found on the floor. Patient has dizziness dry mouth but denies fever chills or night sweats, chest pain or pressure or tightness. No nausea vomiting or diarrhea. On midodrine 10 mg 3 times daily as needed for SBP less than 120. 1. Orthostatic Hypotension (with blood pressure of 156/80 lying, 119/70 sitting and then dropping to 74/39 standing) in the setting of previously known Postural Dizziness with Near Syncope - Admit to PCU under observation status. Serialize troponin. Check carotid Doppler to evaluate for stenosis. Finally, we will consult [facility] to see this patient on-rounds in the AM for further recommendations with help appreciated in advance. 10/18: Telemetry no significant arrhythmia or ectopy. Serial troponins 49, 54 and 61 probably due to hypotension. Patient denies chest pain pressure tightness or acute shortness of breath or prior history of PR. Was evaluated by director private music therapy agency. Near syncope seems mainly hypotension related, no direct cardiac syncope. Recent cardiac echo April 27 shows EF 70%. No evidence of diastolic dysfunction. Normal RV size systolic function. No RWMA. Mild TR. Conservative management with thigh-high YESSICA hose, anticoagulation. Follow-up with the [facility] at time of discharge. 2. Elevated BUN/creatinine ratio of 24.8 present on admission consistent with suspected Dehydration exacerbating #1 - Volume resuscitate and recheck renal indices daily. 3. Generalized Weakness withknown history of OA/DJD with cervical myelopathy with chronic LUE weakness; s/p cervical fusion (04/2024) - PT/OT and Case Management consult 4. Leukocytosis of 14.7K present on admission due to suspected acute stress-response with no signs of infection: Patient denies any focal symptoms of infection including no URI or UTI symptoms. UA is negative. 5. History of BPPV adding to the medical complexity of #1 - #4 - Give meclizine prn for breakthrough symptoms. 6. Depression with anxiety; on duloxetine and bupropion - Maintain current regimen. 7. Other multiple comorbid include GERD, chronic ventral hernia, patient to use abdominal binder. DVT prophylaxis - Heparin 5,000U sq BID plus SCD's. Laboratory Results 10/18/24 00:04: WBC 14.7 H, RBC 4.12 L, Hgb 11.2 L, Hct 33.9 L, MCV 82.3, MCH 27.2, MCHC 33.0, RDW Std Deviation 37.1, RDW Coeff of Delia 12.3, Plt Count 325, MPV 8.6, Immature Gran % (Auto) 0.700, Neut % (Auto) 83.5 H, Lymph % (Auto) 7.4 L, Burke % (Auto) 8.0, Eos % (Auto) 0.2, Baso % (Auto) 0.2, Absolute Neuts (auto) 12.3 H, Absolute Lymphs (auto) 1.09, Nucleated RBC % 0, Sodium 136, Potassium 3.9, Chloride 97 L, Carbon Dioxide 25.2, Anion Gap 14, BUN 24 H, Creatinine 0.97, Estim Creat Clear Calc 56.80, Est GFR (MDRD) Non-Af 78, BUN/Creatinine Ratio 24.8 H, Glucose 98, Calcium 9.7, Magnesium 2.0 10/18/24 03:35: Urine Color Yellow, Urine Clarity Clear, Urine pH 6.0, Ur Specific [place] 1.020, Urine Protein 15 H, Urine Glucose (UA) Normal, Urine Ketones 5 H, Urine Occult Blood Negative, Urine Nitrite Negative, Urine Bilirubin Negative, Urine Urobilinogen 1 H, Ur Leukocyte Esterase Negative, Urine RBC 0 SEEN, Urine WBC 0-5 SEEN, Ur Squamous Epith Cells 0 SEEN, Amorphous Sediment 1+, Urine Bacteria 2+, Urine Mucus 0 SEEN 10/18/24 04:55: Phosphorus 3.7, Triglycerides 89, Cholesterol 138, LDL Cholesterol, Calc 78, VLDL Cholesterol 18, HDL Cholesterol 42, Cholesterol/HDL Ratio 3.28, Vitamin B12 934 H, Serum Folate 10.40, TSH 1.080 10/18/24 06:18: Troponin T High Sens 49 H D 10/18/24 08:40: Troponin T Hi Sens 2 Hr 54 H* 10/18/24 10:40: Troponin T Hi Sens 4Hr 61 H* Charges/Coding Visit Charges Inpatient E&M: 69607 Subs Hosp L2
[2024-10-19] VITALS (8 sets, daily range): BP systolic 54–177; BP diastolic 35–83; PULSE 64–99; RESP 16–20; TEMP 36.6–36.8; O2SAT 94–96; BMI 22.9
[2024-10-19 06:44] LABS: Hematocrit 32.0 % (40-54); Hemoglobin 10.7 g/dL (13.0-16.5); Immature Granulocytes Count 0.070 X10^3/uL (0.0-0.0); Mean Corp Hgb Conc 33.4 g/dL (32-36); Mean Corpuscular Volume 80.4 fL (80-94); Mean Platelet Vol. 8.6 fl (6.2-12.0); NRBC Flagged by Analyzer 0 % (0-5); Platelet Count 300 K/mm3 (150-450); RBC Distribution Width CV 12.5 % (11.6-14.6); RBC Distribution Width SD 36.2 fl (35.1-43.9); Red Blood Count 3.98 M/mm3 (4.6-6.2); White Blood Count 13.9 K/mm3 (4.4-11.0)
[2024-10-19 08:24] LABS: AST(SGOT) 34 U/L (<=37); Alanine Aminotransfer ALT/SGPT 25 U/L (<=46); Albumin, Serum 2.8 g/dL (3.4-4.8); Alkaline Phosphatase 94 U/L (40-129); Anion Gap 12 (5-15); BUN 14 mg/dL (4-19); BUN/Creat Ratio 17.7 RATIO (10-20); Calcium,Total 8.7 mg/dL (7.6-11.0); Carbon Dioxide 22.7 mmol/L (21.0-32.0); Chloride 100 mmol/L (98-108); Estimated Creatinine Clearance 68.88 ml/min (50-250); Globulin 2.6 g/dL (2.2-4.2); Glucose 106 mg/dL (70-99); Potassium 3.9 mmol/L (3.3-5.1)
[2024-10-19] MEDS: Heparin Injection (Vial) 5,000 UNIT/ML VIAL 5000 UNIT SC ×2 (09:17→22:34)
[2024-10-19] MEDS: Senna/Docusate Sodium 1 Tablet 2 TABLET PO (09:17)
[2024-10-19] MEDS: buPROPion (XL) 150 MG TABLET.XL PO (09:17)
--- NOTE | 2024-10-19 10:45 | CASEMGMT ---
RN CM FREELANCE TRANSLATOR CM?to room to meet with patient for initial transition planning/care coordination assessment. RN CM?introduced self and role at [facility]. Pt voices understanding and consents to assessment?at this time. Pt sitting up in chair in room in no distress at this time. Pt is A/O at this time and answers all questions appropriately. Care providers, pharmacy, and demographics verified/updated at this time. Strata:?3 PCP: Dr Etienne Specialists: Pt states he no longer goes to any specialists. Preferred Pharmacy: [facility], [place] Insurance: MCR, [employer] Prescription Benefit: Yes, [employer] . Living Arrangements: Lives alone in ground-floor apt w/no steps to enter. Sister, Janki, assists pt w/bathing & dressing, sets up weekly pill containers, and does most of the cleaning. Ex-, Naa, gets groceries and often buys meals @ [employer]. Transportation:?Pt states he has not driven since April. Naa provides transportation. DME: States has the following DME: Medical alert, walker, rollator, shower chair. Pt states no need for further DME at this time. HHC/SNF: Pt has [facility] to [facility] and [facility]. No hx of HHC. Discussed discharge planning. Pt is hoping he can go home, but he is not sure, stating he wants to wait and see how he is doing once the dizziness has resolved. He states he may consider SNF, if needed. He may be interested in HHC as well. He states he would like Naa to help in making these decisions. CM?to follow for further discharge planning/needs. Pt voices no further concerns/needs at this time. Advised pt to ask for CM?if any further questions/concerns/needs arise. Voices understanding. PLAN: TBD. SNF vs Home vs Home w/HHC. Jessi JACK RN, CM
--- NOTE | 2024-10-19 16:13 | PCM.PN.HOSP ---
Reason for Visit Chief Complaint: Near Syncope x 3. Subjective Subjective Patient states he is feeling okay however nursing reports that he had a significant drop in his blood pressures from 170s to 60 systolic with change in position. He had already began IV fluids but seems to have persistently profound orthostasis. Overall plan is home with home health if we can mitigate his risk of falls. Patient states he has been drinking Body Armor at home to try to decrease his risk of syncope. He does sit down to go to the bathroom to decrease his risk of micturition syncope. Objective Data Objective Data Vital Signs: Vital Signs Temp Pulse Resp BP Pulse Ox O2 Del Method 97.8 F 72 18 118/75 96 Room Air 10/19/24 15:00 10/19/24 15:00 10/19/24 15:00 10/19/24 15:00 10/19/24 15:00 10/19/24 15:00 Oxygen Delivery Method Room Air Weight: 68.4 kg Body Mass Index (BMI) 22.9 Intake & Output: Intake and Output for Last 24 Hours 10/17/24 10/18/24 10/19/24 23:59 23:59 23:59 Intake Total 3043.33 / 3043.33 1200 / 1200 Output Total 625 / 625 Balance 2418.33 / 2418.33 1200 / 1200 Lab / Micro Data 10/19/24 06:22 10/19/24 06:22 Labs: Laboratory Results - last 24 hr 10/19/24 06:22: WBC 13.9 H, RBC 3.98 L, Hgb 10.7 L, Hct 32.0 L, MCV 80.4, MCH 26.9 L, MCHC 33.4, RDW Std Deviation 36.2, RDW Coeff of Delia 12.5, Plt Count 300, MPV 8.6, Immature Gran % (Auto) 0.500, Neut % (Auto) 82.0 H, Lymph % (Auto) 10.0 L, [place] % (Auto) 7.1, Eos % (Auto) 0.3, Baso % (Auto) 0.1, Absolute Neuts (auto) 11.4 H, Absolute Lymphs (auto) 1.39, Nucleated RBC % 0, Sodium 135, Potassium 3.9, Chloride 100, Carbon Dioxide 22.7, Anion Gap 12, BUN 14, Creatinine 0.77, Estim Creat Clear Calc 68.88, Est GFR (MDRD) Non-Af 89, BUN/Creatinine Ratio 17.7, Glucose 106 H, Calcium 8.7, Total Bilirubin 0.61, AST 34, ALT 25, Alkaline Phosphatase 94, Total Protein 5.4 L, Albumin 2.8 L, Globulin 2.6, Albumin/Globulin Ratio 1.1 Micro: Microbiology 10/18/24 02:11 Stool Stool Occult Blood (JERMAINE) - Final Radiography Diagnostic Testing: Radiology Impression Carotid Duplex 10/18/24 04:40 Interpretation Summary Mild (<50%) stenosis right extracranial internal carotid. Moderate (50-69%) stenosis left extracranial internal carotid. Patent and antegrade vertebrals bilaterally. Ordering Physician: Jacoby Tenorio Referring Physician: Kevin Menjivar Performed By: Yousif Hunter RVT Rhythm Strip Rhythm Strip: Sinus Rhythm Rate: 70 Physical Exam Const alert, oriented x3, no apparent distress, average body habitus and well nourished; Negative for healthy appearing Constitutional Narrative: Elderly, white male, sitting up in a chair at the bedside, currently appears comfortable, interacts appropriately, pleasant HEENT head/scalp atraumatic and moist oral mucous membranes HEENT Narrative: Mallampati 2-3, no thrush Head and Scalp: normocephalic Eyes conjunctivae normal Eyes Narrative: No scleral icterus Neck supple Neck Narrative: Trachea midline Resp normal respiratory effort, no retractions, no use of accessory muscles and clear to auscultation bilaterally Auscultation: Negative for rales, rhonchi or wheezes Cardio regular rate, regular rhythm, S1 normal heart sound, S2 normal heart sound, no murmurs, no rub, no gallops and no clicks GI normal to inspection, nondistended, normoactive bowel sounds, soft to palpation and non-tender Extremity no clubbing, cyanosis or edema Extremity Narrative: 2+ pedal and radial pulses Skin Skin Narrative: Scattered ecchymotic changes but no skin tears or wounds Neuro moves all extremities and no focal motor deficits Neuro Narrative: Generalized weakness noted proximal greater than distal 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 - Patient is on several medications which could induce orthostatic hypotension including Wellbutrin, duloxetine, and mirtazapine - Will hold all of these medications to see if this decreases his incidence of orthostatic hypotension - Will plan on recommending graduated compression stockings at discharge and YESSICA hose for now - Continue home as needed midodrine for now but may be able to discontinue if orthostatic hypotension resolves with discontinuing of the above medications - Does not appear to be dry any longer so I am not sure that. Dehydration is the etiology of his orthostasis - No telemetry events noted may need Holter versus event at discharge depending on events Generalized weakness - Continue PT/OT - May need home health versus placement at discharge Leukocytosis - Mild and slightly improved - No signs of acute infection - UA is unremarkable - Repeat lab in a.m. Acute prerenal azotemia secondary to dehydration - resolved GERD - Continue home PPI IBS with alternating diarrhea and constipation - Continue home stool softeners History of BPPV - Hold mirtazapine - No current complaints of dizziness Depression - Hold home Wellbutrin, mirtazapine, and duloxetine History of tobacco abuse - Remote DVT prophylaxis - Continue subcu heparin CODE STATUS -DNR CC A with short-term intubation Charges/Coding Visit Charges Inpatient E&M: 13909 [facility] L3
[2024-10-20] VITALS (7 sets, daily range): BP systolic 87–187; BP diastolic 54–106; PULSE 72–96; RESP 16–18; TEMP 36.6–37.2; O2SAT 96–98; BMI 23.0
[2024-10-20 05:48] LABS: Hematocrit 33.3 % (40-54); Hemoglobin 11.0 g/dL (13.0-16.5); Immature Granulocytes Count 0.050 X10^3/uL (0.0-0.0); Mean Corp Hgb Conc 33.0 g/dL (32-36); Mean Corpuscular Volume 81.8 fL (80-94); Mean Platelet Vol. 8.6 fl (6.2-12.0); NRBC Flagged by Analyzer 0 % (0-5); Platelet Count 294 K/mm3 (150-450); RBC Distribution Width CV 12.5 % (11.6-14.6); RBC Distribution Width SD 37.7 fl (35.1-43.9); Red Blood Count 4.07 M/mm3 (4.6-6.2); White Blood Count 12.7 K/mm3 (4.4-11.0)
[2024-10-20 06:30] LABS: AST(SGOT) 22 U/L (<=37); Alanine Aminotransfer ALT/SGPT 21 U/L (<=46); Albumin, Serum 3.0 g/dL (3.4-4.8); Alkaline Phosphatase 92 U/L (40-129); Anion Gap 12 (5-15); BUN 15 mg/dL (4-19); BUN/Creat Ratio 20.4 RATIO (10-20); Calcium,Total 8.8 mg/dL (7.6-11.0); Carbon Dioxide 24.8 mmol/L (21.0-32.0); Chloride 100 mmol/L (98-108); Estimated Creatinine Clearance 68.88 ml/min (50-250); Globulin 2.6 g/dL (2.2-4.2); Glucose 97 mg/dL (70-99); Magnesium 1.9 mg/dL (1.5-2.2); Potassium 3.6 mmol/L (3.3-5.1)
[2024-10-20] MEDS: Heparin Injection (Vial) 5,000 UNIT/ML VIAL 5000 UNIT SC ×2 (08:52→22:09)
--- NOTE | 2024-10-20 15:46 | CASEMGMT ---
GE GAMEZ in to discuss discharge planning with patient. Patient states he has HHC coming to his house but could not recall. GE GAMEZ called W, per WVM patient was setup with [facility]. GE GAMEZ sent referral to inquire about services via [facility], awaiting response.
--- NOTE | 2024-10-20 17:15 | PCM.PN.HOSP ---
Reason for Visit Chief Complaint: Near Syncope x 3. Subjective Subjective Still with lightheadedness on standing. Presyncopal event again with therapy however blood pressure seem to be better with orthostatics but still positive. Patient no longer appears to be dehydrated. We did discuss that he was on multiple medications that could cause orthostasis so we discontinued them and planned with them washout. Reassess again tomorrow and this was discussed with the patient he is agreeable. Objective Data Objective Data Vital Signs: Vital Signs Temp Pulse Resp BP Pulse Ox O2 Del Method 98.0 F 96 16 185/74 H 97 Room Air 10/20/24 08:47 10/20/24 08:47 10/20/24 08:47 10/20/24 08:47 10/20/24 08:47 10/20/24 10:41 Oxygen Delivery Method Room Air Weight: 68.7 kg Body Mass Index (BMI) 23.0 Intake & Output: Intake and Output for Last 24 Hours 10/18/24 10/19/24 10/20/24 23:59 23:59 23:59 Intake Total 3043.33 / 3043.33 1800 / 1800 Output Total 625 / 625 Balance 2418.33 / 2418.33 1800 / 1800 Lab / Micro Data 10/20/24 05:24 10/20/24 05:24 Labs: Laboratory Results - last 24 hr 10/20/24 05:24: WBC 12.7 H, RBC 4.07 L, Hgb 11.0 L, Hct 33.3 L, MCV 81.8, MCH 27.0, MCHC 33.0, RDW Std Deviation 37.7, RDW Coeff of Delia 12.5, Plt Count 294, MPV 8.6, Immature Gran % (Auto) 0.400, Neut % (Auto) 78.1 H, Lymph % (Auto) 12.2 L, [place] % (Auto) 8.2, Eos % (Auto) 0.9, Baso % (Auto) 0.2, Absolute Neuts (auto) 9.9 H, Absolute Lymphs (auto) 1.56, Nucleated RBC % 0, Sodium 137, Potassium 3.6, Chloride 100, Carbon Dioxide 24.8, Anion Gap 12, BUN 15, Creatinine 0.73, Estim Creat Clear Calc 68.88, Est GFR (MDRD) Non-Af 91, BUN/Creatinine Ratio 20.4 H, Glucose 97, Calcium 8.8, Phosphorus 3.3, Magnesium 1.9, Total Bilirubin 0.57, AST 22, ALT 21, Alkaline Phosphatase 92, Total Protein 5.6 L, Albumin 3.0 L, Globulin 2.6, Albumin/Globulin Ratio 1.1 Micro: Microbiology 10/18/24 02:11 Stool Stool Occult Blood (JERMAINE) - Final Rhythm Strip Rhythm Strip: Sinus Rhythm Rate: 70 Physical Exam Const alert, oriented x3, no apparent distress, average body habitus and well nourished; Negative for healthy appearing Constitutional Narrative: Elderly, white male, sitting up in a chair at the bedside, currently appears comfortable, interacts appropriately, pleasant General Appearance: cooperative HEENT normocephalic, head/scalp atraumatic, hearing grossly normal bilaterally and moist oral mucous membranes HEENT Narrative: Mallampati 2, no thrush Resp normal respiratory effort, no retractions, no use of accessory muscles and clear to auscultation bilaterally Auscultation: Negative for rales, rhonchi or wheezes Cardio regular rate, regular rhythm, S1 normal heart sound, S2 normal heart sound, no murmurs, no rub, no gallops and no clicks GI normal to inspection, nondistended, normoactive bowel sounds, soft to palpation and non-tender Extremity normal to inspection, full ROM and no clubbing, cyanosis or edema Extremity Narrative: 2+ pedal and radial pulses Neuro moves all extremities and no focal motor deficits Neuro Narrative: Generalized weakness noted proximal greater than distal 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 - Patient had been on several medications which could induce orthostatic hypotension including Wellbutrin, duloxetine, and mirtazapine - Will hold all of these medications to see if this decreases his incidence of orthostatic hypotension -Still orthostatic positive but will need time for washout - Will plan on recommending graduated compression stockings at discharge and YESSICA hose for now - Continue home as needed midodrine for now but may be able to discontinue if orthostatic hypotension resolves with discontinuing of the above medications - Patient still with no abnormal arrhythmia on telemetry during event Generalized weakness - Continue PT/OT - May need home health versus placement at discharge Troponin elevation - Patient without any cardiac symptoms - Suspect demand ischemia/subendocardial ischemia - Will check limited echo as patient just had a recent echo in April 2024 that was unremarkable Leukocytosis - Mild and slightly improved - No signs of acute infection and slowly trending down since the day came over when you are sick - UA is unremarkable - Repeat lab in a.m. Chronic anemia - Normocytic - Mild - Baseline hemoglobin appears to run between 11 and 13 Acute prerenal azotemia secondary to dehydration - resolved GERD - Continue home PPI IBS with alternating diarrhea and constipation - Continue home stool softeners History of BPPV - Hold mirtazapine - No current complaints of dizziness Depression - Hold home Wellbutrin, mirtazapine, and duloxetine History of tobacco abuse - Remote DVT prophylaxis - Continue subcu heparin CODE STATUS -DNR CCA with short-term intubation Charges/Coding Visit Charges Inpatient E&M: 29245 Subs Hosp L2
--- NOTE | 2024-10-20 17:22 | ECHOL_ITS ---
Reason For Study Reason For Study: SYNCOPE Procedure This was a limited 2D transthoracic echocardiogram. Technically difficult study due to patient position. Patient severely orthostatic and unable to be moved from chair to bed. Patient scanned in the chair. Exam performed portable in patient room. Left Ventricle Left ventricular systolic function is hyperdynamic. The LV ejection fraction is 75 %. Right Ventricle Normal systolic function. Atria The left and right atria are normal. Pericardium/Pleural Moderate (1.0-2.0 cm) pericardial effusion. There are no echocardiographic indications of cardiac tamponade. MMode/2D Measurements & Calculations LVIDd: 3.5 cm IVSd: 1.3 cm LVAd ap4: 14.7 cm2 LVIDs: 2.4 cm LVPWd: 1.0 cm LVLd ap4: 6.1 cm FS: 31.9 % EDV(MOD-sp4): 29.6 ml EDV(sp4-el): 30.1 ml LVAs ap4: 6.3 cm2 LVLs ap4: 5.4 cm ESV(MOD-sp4): 8.0 ml ESV(sp4-el): 6.3 ml EF(MOD-sp4): 73.1 % EF(sp4-el): 79.1 % SV(MOD-sp4): 21.7 ml SV(sp4-el): 23.8 ml SI(MOD-sp4): 12.0 ml/m2 ECHO/Echo, Limited Study Interpretation Summary The LV ejection fraction is 75 %. Moderate (1.0-2.0 cm) pericardial effusion. There are no echocardiographic indications of cardiac tamponade. Ordering Physician: Hattie Hester Referring Physician: Keven Etienne Performed By: Didi Arce RCS
[2024-10-20] MEDS: 0.9% Saline Lock 10 ML Syringe IV (22:09)
[2024-10-20] MEDS: Senna/Docusate Sodium 1 Tablet 2 TABLET PO (22:09)
--- NOTE | 2024-10-20 22:31 | NURSING ---
Pt ex-, Naa called in around 2109 to notify nursing that she had just spoke with patient on the phone and he wasn't feeling well. This RN to room at 2113. VS completed, T98.7, BP153/78, HR72, RR18, SpO2 96% room air. Pt did endorse not feeling well; however, unable to verbalize what exactly wasn't feeling well. Denies pain,dizziness, shortness of breath. This RN called aNa back with update.
[2024-10-21 04:05] VITALS: BP 168/87; PULSE 80; RESP 16; TEMP 36.6; O2SAT 95
[2024-10-21 04:46] VITALS: BMI 22.6
[2024-10-21 07:45] VITALS: BP 108/76; BP 160/102; BP 69/54; PULSE 124; PULSE 143
--- NOTE | 2024-10-21 07:45 | NURSING ---
Addendum entered by Toyin See 10/21/24 10:47: [id number] DRIVER called for assistance in pts room d/t eyes rolling back in head. fiberglass machine operator were assisting pt to chair with walker and once sitting down pt became very dizzy and lightheaded. BG checks, VS obtained. Elevated pts feet and leaned head of chair back. Pt noted to be pale and sweaty. After sitting in chair for a few minutes pt stated he was feeling better. Dr Hester updated, asked for pt to be put in thigh high sarah hose and an abdominal binder. Original Note: In to assess pt orthostatic VS with x2 RN. See ortho charting. Pt became very dizzy, pale. Assisted back into bed and placed into trendelenberg. No ectopy noted on telemetry. BP reassessed. Pt stated he is now feeling better, not as dizzy. Dr Hester made aware.
[2024-10-21 08:55] VITALS: BP 97/77; PULSE 96; RESP 18; TEMP 36.1; O2SAT 100
[2024-10-21] MEDS: Heparin Injection (Vial) 5,000 UNIT/ML VIAL 5000 UNIT SC ×2 (11:27→20:44)
--- NOTE | 2024-10-21 12:01 | PN.HOSP_ITS ---
Reason for Visit Chief Complaint: Near Syncope x 3. Subjective Subjective Patient with still marked orthostatic hypotension. Is fine until he moves and then has near syncope with diaphoresis and tunnel vision. No changes on telemetry during the events. Objective Data Objective Data Vital Signs: Vital Signs Temp Pulse Resp BP Pulse Ox O2 Del Method 96.9 F L 96 18 97/77 100 Room Air 10/21/24 08:55 10/21/24 08:55 10/21/24 08:55 10/21/24 08:55 10/21/24 08:55 10/21/24 08:55 Oxygen Delivery Method Room Air Weight: 67.6 kg Body Mass Index (BMI) 22.6 Intake & Output: Intake and Output for Last 24 Hours 10/19/24 10/20/24 10/21/24 23:59 23:59 23:59 Intake Total 1800 / 1800 240 / 240 Balance 1800 / 1800 240 / 240 Lab / Micro Data 10/20/24 05:24 10/20/24 05:24 Labs: Laboratory Results - last 24 hr 10/21/24 09:00: POC Glucose 101 Micro: Microbiology 10/18/24 02:11 Stool Stool Occult Blood (JERMAINE) - Final Rhythm Strip Rhythm Strip: Sinus Rhythm Rate: 70 Physical Exam Const alert, oriented x3, no apparent distress, average body habitus and well nourished; Negative for healthy appearing Constitutional Narrative: Elderly, white male, sitting up in a chair at the bedside, eyes closed and resting but awakens easily is appropriate, currently appears comfortable, interacts appropriately, pleasant General Appearance: cooperative HEENT normocephalic, head/scalp atraumatic and moist oral mucous membranes HEENT Narrative: No thrush Resp normal respiratory effort, no retractions, no use of accessory muscles and clear to auscultation bilaterally Auscultation: Negative for rales, rhonchi or wheezes Cardio regular rate, regular rhythm, S1 normal heart sound, S2 normal heart sound, no murmurs, no rub, no gallops and no clicks GI normal to inspection, nondistended, normoactive bowel sounds, soft to palpation and non-tender Extremity no clubbing, cyanosis or edema Extremity Narrative: 2+ pedal and radial pulses Neuro moves all extremities and no focal motor deficits Neuro Narrative: Generalized weakness noted proximal greater than distal consistent with age- related sarcopenia Psych affect normal Psych Narrative: Eye contact is good and patient interacts appropriately, affect is not flat today Assessment & Plan Assessment/Plan (1) Recurrent syncope: (2) Orthostatic hypotension: (3) Leukocytosis: (4) Acute prerenal azotemia: (5) Dehydration: (6) Generalized weakness: PLAN: Plan Recurrent syncope secondary to severe orthostatic hypotension - Patient no longer seems to be dry - Orthostatics remain positive will repeat in a.m. - Patient had been on several medications which could induce orthostatic hypotension including Wellbutrin, duloxetine, and mirtazapine - Will hold all of these medications to see if this decreases his incidence of orthostatic hypotension -Still orthostatic positive and some washout left but would expect to see some effect - cortisol and TSH WNL - Add abd binder and yessica hose must be on when checking - add salt tabs TID - if still problematic tomorrow add florinef and reassess - Will plan on recommending graduated compression stockings at discharge and YESSICA hose for now - Continue home as needed midodrine for now but may be able to discontinue if orthostatic hypotension resolves with discontinuing of the above medications - Patient still with no abnormal arrhythmia on telemetry during event - Carotid dopplers Mild R and Mod L, verts patent Generalized weakness - Continue PT/OT - May need home health versus placement at discharge Troponin elevation - Patient without any cardiac symptoms - Suspect demand ischemia/subendocardial ischemia - Will check limited echo as patient just had a recent echo in April 2024 that was unremarkable Leukocytosis - Mild and slightly improved - No signs of acute infection and slowly trending down since the day came over when you are sick - UA is unremarkable - Repeat lab in a.m. Chronic anemia - Normocytic - Mild - Baseline hemoglobin appears to run between 11 and 13 Acute prerenal azotemia secondary to dehydration - resolved GERD - Continue home PPI IBS with alternating diarrhea and constipation - Continue home stool softeners History of BPPV - Hold mirtazapine - No current complaints of dizziness Depression - Hold home Wellbutrin, mirtazapine, and duloxetine History of tobacco abuse - Remote DVT prophylaxis - Continue subcu heparin CODE STATUS -DNR CCA with short-term intubation Charges/Coding Visit Charges Inpatient E&M: 53902 Subs Hosp L2
[2024-10-21 15:30] VITALS: BP 143/75; PULSE 76; RESP 22; TEMP 36.6; O2SAT 97
[2024-10-21 15:35] VITALS: BP 139/69; BP 173/83; BP 74/47; PULSE 76; PULSE 99
[2024-10-21 19:34] LABS: CRP 207.00 mg/L (0.0-3.0)
[2024-10-21] MEDS: Senna/Docusate Sodium 1 Tablet 2 TABLET PO (20:43)
[2024-10-21 21:30] VITALS: BP 139/82; PULSE 75; RESP 14; TEMP 36.2; O2SAT 96
[2024-10-22] VITALS (7 sets, daily range): BP systolic 95–212; BP diastolic 61–178; PULSE 78–93; RESP 13–16; TEMP 36.3–37.1; O2SAT 95–99; BMI 22.3
[2024-10-22] MEDS: Heparin Injection (Vial) 5,000 UNIT/ML VIAL 5000 UNIT SC ×2 (10:04→21:22)
[2024-10-22] MEDS: Ensure Plus High Protein 120 ML LIQUID PO ×4 (10:04→21:21)
[2024-10-22] MEDS: Senna/Docusate Sodium 1 Tablet 2 TABLET PO ×2 (10:05→21:23)
[2024-10-22 10:30] LABS: Hematocrit 33.3 % (40-54); Hemoglobin 10.8 g/dL (13.0-16.5); Immature Granulocytes Count 0.090 X10^3/uL (0.0-0.0); Mean Corp Hgb Conc 32.4 g/dL (32-36); Mean Corpuscular Volume 82.2 fL (80-94); Mean Platelet Vol. 8.4 fl (6.2-12.0); NRBC Flagged by Analyzer 0 % (0-5); Platelet Count 347 K/mm3 (150-450); RBC Distribution Width CV 12.6 % (11.6-14.6); RBC Distribution Width SD 37.9 fl (35.1-43.9); Red Blood Count 4.05 M/mm3 (4.6-6.2); White Blood Count 13.6 K/mm3 (4.4-11.0)
[2024-10-22 10:52] LABS: Anion Gap 12 (5-15); BUN 18 mg/dL (4-19); BUN/Creat Ratio 21.0 RATIO (10-20); Calcium,Total 9.1 mg/dL (7.6-11.0); Carbon Dioxide 25.1 mmol/L (21.0-32.0); Chloride 99 mmol/L (98-108); Estimated Creatinine Clearance 63.87 ml/min (50-250); Glucose 150 mg/dL (70-99); Potassium 3.2 mmol/L (3.3-5.1)
--- NOTE | 2024-10-22 13:21 | PCM.PN.HOSP ---
Reason for Visit Chief Complaint: Near Syncope x 3. Subjective Subjective Orthostatics were negative today and patient states he was asymptomatic. I did discuss with him the findings on echocardiogram and possible need for transfer after reevaluation by cardiology tomorrow. He voiced understanding. Objective Data Objective Data Vital Signs: Vital Signs Temp Pulse Resp BP Pulse Ox O2 Del Method 97.3 F L 86 13 180/83 H 99 Room Air 10/22/24 03:30 10/22/24 03:30 10/22/24 03:30 10/22/24 05:30 10/22/24 03:30 10/22/24 03:30 Oxygen Delivery Method Room Air Weight: 66.6 kg Body Mass Index (BMI) 22.3 Intake & Output: Intake and Output for Last 24 Hours 10/20/24 10/21/24 10/22/24 23:59 23:59 23:59 Intake Total 960 / 960 Output Total 250 / 250 Balance 960 / 960 -250 / -250 Lab / Micro Data 10/22/24 10:10 10/22/24 10:10 Labs: Laboratory Results - last 24 hr 10/21/24 17:05: ESR 48 H, C-React Prot Ext Range 207.00 H 10/22/24 10:10: WBC 13.6 H, RBC 4.05 L, Hgb 10.8 L, Hct 33.3 L, MCV 82.2, MCH 26.7 L, MCHC 32.4, RDW Std Deviation 37.9, RDW Coeff of Delia 12.6, Plt Count 347, MPV 8.4, Immature Gran % (Auto) 0.700, Neut % (Auto) 84.9 H, Lymph % (Auto) 8.0 L, [place] % (Auto) 6.2, Eos % (Auto) 0.1, Baso % (Auto) 0.1, Absolute Neuts (auto) 11.5 H, Absolute Lymphs (auto) 1.09, Nucleated RBC % 0, Sodium 136, Potassium 3.2 L, Chloride 99, Carbon Dioxide 25.1, Anion Gap 12, BUN 18, Creatinine 0.84, Estim Creat Clear Calc 63.87, Est GFR (MDRD) Non-Af 87, BUN/Creatinine Ratio 21.0 H, Glucose 150 H, Calcium 9.1 10/22/24 11:54: PATI-1 Antibody TNP, Sm (Boss) Antibody TNP, INSOLE TACKER Antibody TNP, Scl-70 Scleroderma Ab TNP, Antichromatin Antibodies TNP, Centromere B Antibody TNP Micro: Microbiology 10/18/24 02:11 Stool Stool Occult Blood (JERMAINE) - Final Rhythm Strip Rhythm Strip: Sinus Rhythm Rate: 70 Physical Exam Const alert, oriented x3, no apparent distress, average body habitus and well nourished; Negative for healthy appearing Constitutional Narrative: Elderly, white male, sitting up in bed eating breakfast and watching him, appears calm, nontoxic General Appearance: cooperative HEENT normocephalic, head/scalp atraumatic and moist oral mucous membranes Resp normal respiratory effort, no retractions, no use of accessory muscles and clear to auscultation bilaterally Auscultation: Negative for rales, rhonchi or wheezes Cardio regular rate, regular rhythm, S1 normal heart sound, S2 normal heart sound, no murmurs, no rub, no gallops and no clicks GI normal to inspection, nondistended, normoactive bowel sounds, soft to palpation and non-tender Extremity no clubbing, cyanosis or edema Extremity Narrative: 2+ pedal and radial pulses Neuro moves all extremities and no focal motor deficits Neuro Narrative: Generalized weakness noted proximal greater than distal consistent with 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 Speech: speech normal Psych affect normal Psych Narrative: Eye contact is good and patient interacts appropriately, affect is not flat today Assessment & Plan Assessment/Plan (1) Recurrent syncope: (2) Orthostatic hypotension: (3) Leukocytosis: (4) Acute prerenal azotemia: (5) Dehydration: (6) Generalized weakness: PLAN: Plan Recurrent syncope secondary to severe orthostatic hypotension - Patient no longer seems to be dry - Orthostatics were negative for the first time today by discontinuing his home Wellbutrin, duloxetine, and mirtazapine, having his abdominal binder and YESSICA hose in place, starting oral salt tablets and Florinef - Echocardiogram shows moderate to severe pericardial effusion without tamponade per discussion with cardiology -I highly suspect this may be the etiology of his recurrent syncope with positional changes -Cardiology agrees and feels he needs a pericardiocentesis--> efraín's materials scheduler discussed with Diego and he states he can do it here--> I did discuss with Dr. Alanis and he states he is on tomorrow and will assist in transfer if need be - Will continue abdominal binder, YESSICA hose, salt tablets, and Florinef for now as patient will be very preload dependent - Discontinue midodrine - Patient still with no abnormal arrhythmia on telemetry during event - Carotid dopplers Mild R and Mod L, verts patent - Cardiology was reconsulted and appreciate input--> discussed case with covering materials scheduler today and with Dr. Alanis Moderate to severe pericardial effusion - Per cardiology will need pericardiocentesis and possible transfer tomorrow depending on reevaluation by cardiology - Coxsackie and echovirus PCR pending, Lyme titers pending, HEAVEN and ANCA are pending - Check coags for possible pericardiocentesis - Per discussion with cardiology will start colchicine 0.6 mg twice daily Hypokalemia - 60 mill equivalents p.o. potassium - Repeat in a.m. Generalized weakness - Continue PT/OT - May need home health versus placement at discharge Troponin elevation - Patient without any cardiac symptoms - Suspect demand ischemia/subendocardial ischemia - Echocardiogram shows moderate to severe pericardial effusion and suspect possible myocarditis Leukocytosis -Relatively stagnant and elevated between 13 and 14 -Suspect this is all related to what ever is occurring above - Repeat lab in a.m. Chronic anemia - Normocytic - Mild and overall stable - Baseline hemoglobin appears to run between 11 and 13 Acute prerenal azotemia secondary to dehydration - resolved GERD - Continue home PPI IBS with alternating diarrhea and constipation - Continue home stool softeners History of BPPV - Hold mirtazapine - No current complaints of dizziness Depression - Hold home Wellbutrin, mirtazapine, and duloxetine History of tobacco abuse - Remote DVT prophylaxis - Continue subcu heparin CODE STATUS -DNR CCA with short-term intubation Charges/Coding Visit Charges Inpatient E&M: 17974 Subs Hosp L3
--- NOTE | 2024-10-22 13:23 | PCM.PN.CARD ---
Subjective Subjective He is doing better. He denies any shortness of breath or chest pain. He did not have an episode of near syncope while he is here. he still have positive orthostatic Objective Data Vital Signs: Vital Signs Temp Pulse Resp BP Pulse Ox O2 Del Method 97.3 F L 86 13 180/83 H 99 Room Air 10/22/24 03:30 10/22/24 03:30 10/22/24 03:30 10/22/24 05:30 10/22/24 03:30 10/22/24 03:30 Oxygen Delivery Method Room Air Weight: 146 lb 13.246 oz Body Mass Index (BMI) 22.3 Intake & Output: Intake and Output for Last 24 Hours 10/20/24 10/21/24 10/22/24 23:59 23:59 23:59 Intake Total 960 / 960 Output Total 250 / 250 Balance 960 / 960 -250 / -250 Lab / Micro Data 10/22/24 10:10 10/22/24 10:10 Labs: Laboratory Results - last 24 hr 10/21/24 17:05: ESR 48 H, C-React Prot Ext Range 207.00 H 10/22/24 10:10: WBC 13.6 H, RBC 4.05 L, Hgb 10.8 L, Hct 33.3 L, MCV 82.2, MCH 26.7 L, MCHC 32.4, RDW Std Deviation 37.9, RDW Coeff of Delia 12.6, Plt Count 347, MPV 8.4, Immature Gran % (Auto) 0.700, Neut % (Auto) 84.9 H, Lymph % (Auto) 8.0 L, [place] % (Auto) 6.2, Eos % (Auto) 0.1, Baso % (Auto) 0.1, Absolute Neuts (auto) 11.5 H, Absolute Lymphs (auto) 1.09, Nucleated RBC % 0, Sodium 136, Potassium 3.2 L, Chloride 99, Carbon Dioxide 25.1, Anion Gap 12, BUN 18, Creatinine 0.84, Estim Creat Clear Calc 63.87, Est GFR (MDRD) Non-Af 87, BUN/Creatinine Ratio 21.0 H, Glucose 150 H, Calcium 9.1 10/22/24 11:54: PATI-1 Antibody TNP, Sm (Boss) Antibody TNP, SCHOOL SPEECH LANGUAGE PATHOLOGIST Antibody TNP, Scl-70 Scleroderma Ab TNP, Antichromatin Antibodies TNP, Centromere B Antibody TNP Rhythm Strip Rhythm Strip: Sinus Rhythm Rate: 70 Cardiology Labs/Tests 10/22/24 10:10: WBC 13.6 H, RBC 4.05 L, Hgb 10.8 L, Hct 33.3 L, MCV 82.2, MCH 26.7 L, MCHC 32.4, Plt Count 347, MPV 8.4, Immature Gran % (Auto) 0.700, Neut % (Auto) 84.9 H, Lymph % (Auto) 8.0 L, [place] % (Auto) 6.2, Eos % (Auto) 0.1, Baso % (Auto) 0.1, Absolute Neuts (auto) 11.5 H, Nucleated RBC % 0, Sodium 136, Potassium 3.2 L, Chloride 99, Carbon Dioxide 25.1, Anion Gap 12, BUN 18, Creatinine 0.84, Est GFR (MDRD) Non-Af 87, BUN/Creatinine Ratio 21.0 H, Glucose 150 H, Calcium 9.1 Rhythm: EKG: ECHO: Stress Test: Cardiac Cath: PCI: CT Surgery: Holter monitor: EPS: PPM: CXR: Chest CT Scan: Physical Exam Const alert HEENT normocephalic Eyes PERRL Lymph Lymphatic: no lymphadenopathy noted Resp normal respiratory effort Cardio regular rate, regular rhythm and S1 normal heart sound GI normal to inspection, nondistended, normoactive bowel sounds no CVA tenderness Back/Spine no CVA tenderness Extremity normal to inspection Skin no rashes or lesions noted Assessment & Plan Assessment/Plan (1) Pericardial effusion: PLAN: Moderate to large pericardial effusion which has progressed over the last 6-month with no tamponade physiology with coagulum in the pericardial effusion Obtain ESR, CRP, autoimmune workup. Start colchicine 0.6 mg daily. Keep the patient n.p.o. for possible pericardiocentesis in the morning for diagnostic purposes. (2) Near syncope: PLAN: In the setting of orthostatic hypotension. Continue with compression stocking. Titrate fludrocortisone according to sodium level. Midodrine was discontinued.
[2024-10-22] MEDS: Potassium Chloride Oral Tablet 20 MEQ 60 MEQ PO (14:03)
[2024-10-23 02:00] VITALS: BP 152/84; PULSE 88; RESP 17; TEMP 36.7; O2SAT 96
[2024-10-23 05:11] LABS: Hematocrit 32.9 % (40-54); Hemoglobin 10.9 g/dL (13.0-16.5); Immature Granulocytes Count 0.100 X10^3/uL (0.0-0.0); Mean Corp Hgb Conc 33.1 g/dL (32-36); Mean Corpuscular Volume 81.2 fL (80-94); Mean Platelet Vol. 8.5 fl (6.2-12.0); NRBC Flagged by Analyzer 0 % (0-5); Platelet Count 336 K/mm3 (150-450); RBC Distribution Width CV 12.6 % (11.6-14.6); RBC Distribution Width SD 37.5 fl (35.1-43.9); Red Blood Count 4.05 M/mm3 (4.6-6.2); White Blood Count 15.2 K/mm3 (4.4-11.0)
[2024-10-23 05:19] VITALS: BMI 22.4
[2024-10-23 05:20] LABS: Prothrombin Time (Protime)PT. 14.6 SECONDS (11.7-14.9)
[2024-10-23 05:21] LABS: Partial Thromboplast Time 40.1 Seconds (24.1-36.2)
[2024-10-23 05:46] LABS: AST(SGOT) 30 U/L (<=37); Alanine Aminotransfer ALT/SGPT 25 U/L (<=46); Albumin, Serum 2.8 g/dL (3.4-4.8); Alkaline Phosphatase 97 U/L (40-129); Anion Gap 10 (5-15); BUN 19 mg/dL (4-19); BUN/Creat Ratio 24.9 RATIO (10-20); Calcium,Total 9.3 mg/dL (7.6-11.0); Carbon Dioxide 24.5 mmol/L (21.0-32.0); Chloride 100 mmol/L (98-108); Estimated Creatinine Clearance 67.77 ml/min (50-250); Globulin 2.8 g/dL (2.2-4.2); Glucose 111 mg/dL (70-99); Potassium 4.0 mmol/L (3.3-5.1)
[2024-10-23 08:00] VITALS: BP 163/93; PULSE 80; RESP 15; TEMP 36.8; O2SAT 95
--- NOTE | 2024-10-23 08:54 | PCM.PN.CARD ---
Subjective Subjective Patient resting comfortably in bed. He has only been on the bed to get to the bedside chair. He denies any lightheadedness this morning. He continues on his orthostatic hypotension physical treatments with his compression hose. He also remains on Florinef. This appears to have improved his symptoms. His echocardiogram does show a moderate to moderately significant circumferential pericardial effusion the echo seems to suggest some RA collapse but the echo windows are difficult to examine. Objective Data Vital Signs: Vital Signs Temp Pulse Resp BP Pulse Ox O2 Del Method 98.3 F 80 15 163/93 H 95 Room Air 10/23/24 08:00 10/23/24 08:00 10/23/24 08:00 10/23/24 08:00 10/23/24 08:00 10/23/24 08:00 Oxygen Delivery Method Room Air Weight: 148 lb 5.938 oz Body Mass Index (BMI) 22.4 Intake & Output: Intake and Output for Last 24 Hours 10/21/24 10/22/24 10/23/24 23:59 23:59 23:59 Intake Total 960 / 960 240 / 480 240 / 240 Output Total 650 / 650 450 / 450 Balance 960 / 960 -410 / -170 -210 / -210 Lab / Micro Data 10/23/24 04:54 10/23/24 04:54 Labs: Laboratory Results - last 24 hr 10/22/24 10:10: WBC 13.6 H, RBC 4.05 L, Hgb 10.8 L, Hct 33.3 L, MCV 82.2, MCH 26.7 L, MCHC 32.4, RDW Std Deviation 37.9, RDW Coeff of Delia 12.6, Plt Count 347, MPV 8.4, Immature Gran % (Auto) 0.700, Neut % (Auto) 84.9 H, Lymph % (Auto) 8.0 L, [place] % (Auto) 6.2, Eos % (Auto) 0.1, Baso % (Auto) 0.1, Absolute Neuts (auto) 11.5 H, Absolute Lymphs (auto) 1.09, Nucleated RBC % 0, Sodium 136, Potassium 3.2 L, Chloride 99, Carbon Dioxide 25.1, Anion Gap 12, BUN 18, Creatinine 0.84, Estim Creat Clear Calc 63.87, Est GFR (MDRD) Non-Af 87, BUN/Creatinine Ratio 21.0 H, Glucose 150 H, Calcium 9.1 10/22/24 11:54: PATI-1 Antibody TNP, Sm (Boss) Antibody TNP, WARP TYING MACHINE TENDER Antibody TNP, Scl-70 Scleroderma Ab TNP, Antichromatin Antibodies TNP, Centromere B Antibody TNP 10/23/24 04:54: WBC 15.2 H, RBC 4.05 L, Hgb 10.9 L, Hct 32.9 L, MCV 81.2, MCH 26.9 L, MCHC 33.1, RDW Std Deviation 37.5, RDW Coeff of Delia 12.6, Plt Count 336, MPV 8.5, Immature Gran % (Auto) 0.700, Neut % (Auto) 78.1 H, Lymph % (Auto) 12.5 L, [place] % (Auto) 8.3, Eos % (Auto) 0.3, Baso % (Auto) 0.1, Absolute Neuts (auto) 11.8 H, Absolute Lymphs (auto) 1.90, Nucleated RBC % 0, PT 14.6, INR 1.1, APTT 40.1 H, Sodium 135, Potassium 4.0, Chloride 100, Carbon Dioxide 24.5, Anion Gap 10, BUN 19, Creatinine 0.75, Estim Creat Clear Calc 67.77, Est GFR (MDRD) Non-Af 90, BUN/Creatinine Ratio 24.9 H, Glucose 111 H, Calcium 9.3, Total Bilirubin 0.47, AST 30, ALT 25, Alkaline Phosphatase 97, Total Protein 5.6 L, Albumin 2.8 L, Globulin 2.8, Albumin/Globulin Ratio 1.0 Rhythm Strip Rhythm Strip: Sinus Rhythm Rate: 80 Cardiology Labs/Tests 10/22/24 10:10: WBC 13.6 H, RBC 4.05 L, Hgb 10.8 L, Hct 33.3 L, MCV 82.2, MCH 26.7 L, MCHC 32.4, Plt Count 347, MPV 8.4, Immature Gran % (Auto) 0.700, Neut % (Auto) 84.9 H, Lymph % (Auto) 8.0 L, [place] % (Auto) 6.2, Eos % (Auto) 0.1, Baso % (Auto) 0.1, Absolute Neuts (auto) 11.5 H, Nucleated RBC % 0, Sodium 136, Potassium 3.2 L, Chloride 99, Carbon Dioxide 25.1, Anion Gap 12, BUN 18, Creatinine 0.84, Est GFR (MDRD) Non-Af 87, BUN/Creatinine Ratio 21.0 H, Glucose 150 H, Calcium 9.1 10/23/24 04:54: WBC 15.2 H, RBC 4.05 L, Hgb 10.9 L, Hct 32.9 L, MCV 81.2, MCH 26.9 L, MCHC 33.1, Plt Count 336, MPV 8.5, Immature Gran % (Auto) 0.700, Neut % (Auto) 78.1 H, Lymph % (Auto) 12.5 L, [place] % (Auto) 8.3, Eos % (Auto) 0.3, Baso % (Auto) 0.1, Absolute Neuts (auto) 11.8 H, Nucleated RBC % 0, PT 14.6, INR 1.1, APTT 40.1 H, Sodium 135, Potassium 4.0, Chloride 100, Carbon Dioxide 24.5, Anion Gap 10, BUN 19, Creatinine 0.75, Est GFR (MDRD) Non-Af 90, BUN/Creatinine Ratio 24.9 H, Glucose 111 H, Calcium 9.3, Total Bilirubin 0.47 Rhythm: EKG: ECHO: Stress Test: Cardiac Cath: PCI: CT Surgery: Holter monitor: EPS: PPM: CXR: Chest CT Scan: Physical Exam Const alert and oriented x3 HEENT normocephalic Eyes EOMs intact bilaterally Chest inspection of chest normal Chest Narrative: Compression vest in place. Resp normal respiratory effort and clear to auscultation bilaterally Cardio Rate: regular rate Rhythm: regular rhythm Heart Sounds: S1 normal and S2 normal; Negative for click, gallop or murmur Extremity no pedal edema Extremity Narrative: Compression hose in place. Neuro Neuro Narrative: Alert and oriented Psych mental status grossly normal Assessment & Plan Assessment/Plan (1) Pericardial effusion: PLAN: Patient's pericardial effusion appears to measure between 1 and 2 cm is not uniformly dispersed around the pericardium. There does appear to be some filling defect consistent with a possible clot within the pericardium. There is also possibility of right atrial collapse although it is difficult due to off axis acquisition of the images. We do not have an probable etiology. The patient has been having recurrent syncope. His previous echocardiogram from April 20, 2024 did not show any pericardial effusion. It does appear that his recurring syncope may be related to his dependence on preload creating his orthostatic hypotension. I did send the images to [facility] to have them look at the pictures and get a second opinion concerning the possible drainage versus pericardial window. I did discuss this with the patient and he is willing to pursue any intervention that might assist with resolving his syncopal's episodes. The patient is DNR CCA with intubation. He does understand that this would have to be rescinded in order to do a procedure. (2) Recurrent syncope: PLAN: Patient is recurring syncope is difficult to exactly determine the etiology. He is definitely orthostatic at times. And is probably dependent on preload given his pericardial effusion that has developed since April 2024. Recommend continue current treatments for the orthostatic hypotension and will discuss with the team at [facility] concerning approaches to addressing the pericardial effusion. PLAN: Plan 1. I have sent the echo images to [facility]. 2. I have discussed this with the inpatient cardiac services attending. She is going to evaluate the echo images with interventionalist 3. Further recommendations once I hear back from them to follow. Charges/Coding Visit Charges Inpatient E&M: 87180 Subs Hosp L2
[2024-10-23] MEDS: Ensure Plus High Protein 120 ML LIQUID PO ×4 (09:59→21:25)
[2024-10-23] MEDS: Heparin Injection (Vial) 5,000 UNIT/ML VIAL 5000 UNIT SC ×2 (10:00→21:14)
[2024-10-23] MEDS: Senna/Docusate Sodium 1 Tablet 2 TABLET PO ×2 (10:00→21:13)
--- NOTE | 2024-10-23 10:56 | PCM.DC.SUM ---
Providers Date of Admission: 10/18/24 Primary Care Physician: Dr. Keven Etienne MD Consultations 10/18/24 04:52 Consult: Cardiology Routine Consulting Provider: [facility] Reason for Consult: Orthostatic Hypotension with Postural Dizziness and Near Syncope. EMERGENT Consult: No Notified: Yes Date Notified: 10/18/24 Time Notified: 06:09 Method of Notification: Text Method of Consult:: In-Person 10/21/24 17:52 Consult: Cardiology Routine Consulting Provider: Mo Cortez Reason for Consult: Recurrent syncope with mod pericardial effusion EMERGENT Consult: No MD Notified: Yes Date Notified: 10/21/24 Time Notified: 18:04 Method of Notification: Verbal Reason For Visit: ORTHOSTATIC HYPOTENSION WITH POSTURAL DIZZINESS Diagnosis Discharge Diagnosis (1) Pericardial effusion: Status: Acute Code(s): I31.39 - Other pericardial effusion (noninflammatory) (2) Recurrent syncope: Status: Acute Code(s): R55 - Syncope and collapse Medications at Discharge Home Medications sennosides 8.6 mg-docusate sodium 50 mg tablet (Stimulant Laxative Plus) 2 tab PO BID laxative #0 tabs 04/27/24 midodrine 5 mg tablet 10 mg (2 x 5 mg) PO 0700,1100,1500 #0 tabs 05/18/24 mirtazapine 15 mg tablet 15 mg PO QHS #0 tabs 05/18/24 pantoprazole 40 mg tablet,delayed release 40 mg PO BID #0 tabs 05/18/24 bupropion HCl 150 mg 24 hr tablet, extended release 150 mg PO DAILY depression 08/05/24 acetaminophen 325 mg tablet 650 mg (2 x 325 mg) PO Q6H PRN PRN Pain 1-10 Or Fever >100.7 #0 tabs 08/09/24 albuterol sulfate 2.5 mg/3 mL (0.083 %) solution for nebulization 2.5 mg (3 mL) inhalation Q2H PRN PRN SOB &/OR WHEEZING #0 mL 08/09/24 duloxetine 30 mg capsule,delayed release 30 mg PO DAILY #0 caps 08/09/24 food supplemt, lactose-reduced 0.08 gram-1.5 kcal/mL oral liquid (Ensure Plus High Protein) 120 ml PO 4X/DAY #0 mL 08/09/24 Weight / BMI Weight Weight: 67.3 kg Body Mass Index (BMI) 22.4 ABG / Lab / Microbiology Data 10/23/24 04:54 10/23/24 04:54 Laboratory: Laboratory Results - last 24 hr 10/22/24 11:54: PATI-1 Antibody TNP, Sm (Boss) Antibody TNP, CHIEF STATION ENGINEER Antibody TNP, Scl-70 Scleroderma Ab TNP, Antichromatin Antibodies TNP, Centromere B Antibody TNP 10/23/24 04:54: WBC 15.2 H, RBC 4.05 L, Hgb 10.9 L, Hct 32.9 L, MCV 81.2, MCH 26.9 L, MCHC 33.1, RDW Std Deviation 37.5, RDW Coeff of Delia 12.6, Plt Count 336, MPV 8.5, Immature Gran % (Auto) 0.700, Neut % (Auto) 78.1 H, Lymph % (Auto) 12.5 L, [place] % (Auto) 8.3, Eos % (Auto) 0.3, Baso % (Auto) 0.1, Absolute Neuts (auto) 11.8 H, Absolute Lymphs (auto) 1.90, Nucleated RBC % 0, PT 14.6, INR 1.1, APTT 40.1 H, Sodium 135, Potassium 4.0, Chloride 100, Carbon Dioxide 24.5, Anion Gap 10, BUN 19, Creatinine 0.75, Estim Creat Clear Calc 67.77, Est GFR (MDRD) Non-Af 90, BUN/Creatinine Ratio 24.9 H, Glucose 111 H, Calcium 9.3, Total Bilirubin 0.47, AST 30, ALT 25, Alkaline Phosphatase 97, Total Protein 5.6 L, Albumin 2.8 L, Globulin 2.8, Albumin/Globulin Ratio 1.0 Microbiology: Microbiology 10/18/24 02:11 Stool Stool Occult Blood (JERMAINE) - Final Discharge Plan Admission Admit Date/Time: 10/18/24 12:00 Attending Provider: Jacoby Mendoza Primary Care Provider: Keven Etienne Consulting Providers: Doretha Aguero; Paris Monsivais; Jennifer Mccann; Alex Grullon; Mo Cortez; Mj Salas; Jos Ken; David Granados; Jacoby Salazar; Jonah Bey; Jian Alanis; Danette Sargent; Claudia Parham; Immanuel Gill; Dustin Ace; Santana Pelayo NP; Meena Morel; Chay Daly; Jacoby Tenorio; Harish Baxter; Hattie Hester; Jacoby Mendoza Discharge Orders/Prescriptions Prescriptions: No Action midodrine 5 mg Tablet 10 mg PO 0700,1100,1500 Qty: 0 0RF pantoprazole 40 mg Tablet,Delayed Release (Dr/Ec) 40 mg PO BID Qty: 0 0RF mirtazapine 15 mg Tablet 15 mg PO QHS Qty: 0 0RF sennosides-docusate sodium [Stimulant Laxative Plus] 8.6-50 mg Tablet 2 tab PO BID Qty: 0 0RF bupropion HCl 150 mg tablet extended release 24 hr 150 mg PO DAILY acetaminophen 325 mg Tablet 650 mg PO Q6H PRN PRN (Reason: Pain 1-10 Or Fever >100.7) Qty: 0 0RF albuterol sulfate 2.5 mg /3 mL (0.083 %) Solution For Nebulization 2.5 mg inhalation Q2H PRN PRN (Reason: SOB &/OR WHEEZING) Qty: 0 0RF duloxetine 30 mg Capsule,Delayed Release(Dr/Ec) 30 mg PO DAILY Qty: 0 0RF Ensure Plus High Protein 0.08 gram-1.5 kcal/mL Liquid 120 ml PO 4X/DAY Qty: 0 0RF Referrals / Follow Up: Kevin Menjivar MD [Med Staff - Driller'S Assistant] - Keven Etienne MD [Primary Care Provider] -
--- NOTE | 2024-10-23 11:33 | CASEMGMT ---
Tertiary Insurance review for hospitals In-network with MEDICARE insurance if transfer is recommended is as follows: [facility], [facility], [place], [facility], [facility], [facility], , [place], [facility], [facility], and [place]. Sheron Kiser, Discharge Planning Asst.
--- NOTE | 2024-10-23 11:34 | PCM.PN.HOSP ---
Reason for Visit Chief Complaint: Near Syncope x 3. Subjective Subjective Patient is an 83-year-old gentleman admitted with fatigue and shortness of breath. Echo demonstrated moderate to large pericardial effusion with no tamponade Objective Data Objective Data Vital Signs: Vital Signs Temp Pulse Resp BP Pulse Ox O2 Del Method 98.3 F 80 15 163/93 H 95 Room Air 10/23/24 08:00 10/23/24 08:00 10/23/24 08:00 10/23/24 08:00 10/23/24 08:00 10/23/24 10:00 Oxygen Delivery Method Room Air Weight: 67.3 kg Body Mass Index (BMI) 22.4 Intake & Output: Intake and Output for Last 24 Hours 10/21/24 10/22/24 10/23/24 23:59 23:59 23:59 Intake Total 960 / 960 240 / 480 240 / 240 Output Total 650 / 650 450 / 450 Balance 960 / 960 -410 / -170 -210 / -210 Lab / Micro Data 10/23/24 04:54 10/23/24 04:54 Labs: Laboratory Results - last 24 hr 10/22/24 11:54: PATI-1 Antibody TNP, Sm (Boss) Antibody TNP, CHILD AND ADOLESCENT PSYCHIATRIST Antibody TNP, Scl-70 Scleroderma Ab TNP, Antichromatin Antibodies TNP, Centromere B Antibody TNP 10/23/24 04:54: WBC 15.2 H, RBC 4.05 L, Hgb 10.9 L, Hct 32.9 L, MCV 81.2, MCH 26.9 L, MCHC 33.1, RDW Std Deviation 37.5, RDW Coeff of Delia 12.6, Plt Count 336, MPV 8.5, Immature Gran % (Auto) 0.700, Neut % (Auto) 78.1 H, Lymph % (Auto) 12.5 L, [place] % (Auto) 8.3, Eos % (Auto) 0.3, Baso % (Auto) 0.1, Absolute Neuts (auto) 11.8 H, Absolute Lymphs (auto) 1.90, Nucleated RBC % 0, PT 14.6, INR 1.1, APTT 40.1 H, Sodium 135, Potassium 4.0, Chloride 100, Carbon Dioxide 24.5, Anion Gap 10, BUN 19, Creatinine 0.75, Estim Creat Clear Calc 67.77, Est GFR (MDRD) Non-Af 90, BUN/Creatinine Ratio 24.9 H, Glucose 111 H, Calcium 9.3, Total Bilirubin 0.47, AST 30, ALT 25, Alkaline Phosphatase 97, Total Protein 5.6 L, Albumin 2.8 L, Globulin 2.8, Albumin/Globulin Ratio 1.0 Micro: Microbiology 10/18/24 02:11 Stool Stool Occult Blood (JERMAINE) - Final Rhythm Strip Rhythm Strip: Sinus Rhythm Rate: 80 Physical Exam Narrative GENERAL: cooperative but appears fatigued HEENT: Atraumatic; normocephalic EYES; Anicteric, Normal Conjunctiva NECK; supple, normal thyroid, RESPIRATORY: Diminished to auscultation CARDIOVASCULAR: Regular S1 S2, GI: soft, normoactive bowel sounds, : No Renal angle tenderness; EXTREMITIES: No edema, no clubbing, MUSCULOSKELETAL: no muscle wasting NEURO: Awake; no lateralizing signs. SKIN: No Rash PSYCH; Flat affect Assessment & Plan Assessment/Plan (1) Pericardial effusion: (2) Recurrent syncope: PLAN: Plan Patient is an 83-year-old gentleman admitted with fatigue and shortness of breath. Echo demonstrated moderate to large pericardial effusion with no tamponade 1. Moderate to severe pericardial effusion ? Case discussed with Dr. Alanis with cardiology plans for patient to be transferred to [facility] for consideration for possible pericardial window 2. Recurrent syncopal episode ? Secondary to orthostatic hypotension patient started on oral salt tablet as well as Florinef 3. GERD ? On PPI 4. Depression with anxiety ? Patient is on Wellbutrin mirtazapine duloxetine plan is to continue 5. DVT prophylaxis ? Subcu heparin Time spent in the patient's overall evaluation,decision-making process, review of diagnostic data, adjustment of management, discussion with other providers, nursing nursing and ancillary staff involved in patient's care documentation, 36 Minutes Charges/Coding Visit Charges Inpatient E&M: 02458 Subs Hosp L2
[2024-10-23 13:46] VITALS: BP 107/62; PULSE 87; RESP 16; TEMP 37; O2SAT 97
[2024-10-23 18:41] VITALS: BP 120/75; PULSE 82; RESP 17; TEMP 36.7; O2SAT 97
[2024-10-23 21:09] VITALS: BP 157/74; PULSE 76; RESP 16; TEMP 37.2; O2SAT 97
--- NOTE | 2024-10-24 07:17 | PCM.DC.SUM ---
Providers Date of Admission: 10/18/24 Date of Discharge: 10/23/24 Primary Care Physician: Dr. Keven Etienne MD Consultations 10/18/24 04:52 Consult: Cardiology Routine Consulting Provider: [facility] Reason for Consult: Orthostatic Hypotension with Postural Dizziness and Near Syncope. EMERGENT Consult: No Notified: Yes Date Notified: 10/18/24 Time Notified: 06:09 Method of Notification: Text Method of Consult:: In-Person 10/21/24 17:52 Consult: Cardiology Routine Consulting Provider: Mo Cortez Reason for Consult: Recurrent syncope with mod pericardial effusion EMERGENT Consult: No MD Notified: Yes Date Notified: 10/21/24 Time Notified: 18:04 Method of Notification: Verbal Reason For Visit: ORTHOSTATIC HYPOTENSION WITH POSTURAL DIZZINESS Diagnosis Discharge Diagnosis (1) Pericardial effusion: Status: Acute Code(s): I31.39 - Other pericardial effusion (noninflammatory) (2) Recurrent syncope: Status: Acute Code(s): R55 - Syncope and collapse Plan Patient is an 83-year-old gentleman admitted with fatigue and shortness of breath. Echo demonstrated moderate to large pericardial effusion with no tamponade 1. Moderate to severe pericardial effusion ? Case discussed with Dr. Alanis with cardiology plans for patient to be transferred to [facility] for consideration for possible pericardial window 2. Recurrent syncopal episode ? Secondary to orthostatic hypotension patient started on oral salt tablet as well as Florinef 3. GERD ? On PPI 4. Depression with anxiety ? Patient is on Wellbutrin mirtazapine duloxetine plan is to continue 5. DVT prophylaxis ? Subcu heparin Time spent in the patient's overall evaluation,decision-making process, review of diagnostic data, adjustment of management, discussion with other providers, nursing nursing and ancillary staff involved in patient's care documentation, 36 Minutes Medications at Discharge Home Medications sennosides 8.6 mg-docusate sodium 50 mg tablet (Stimulant Laxative Plus) 2 tab PO BID laxative #0 tabs 04/27/24 midodrine 5 mg tablet 10 mg (2 x 5 mg) PO 0700,1100,1500 #0 tabs 05/18/24 mirtazapine 15 mg tablet 15 mg PO QHS #0 tabs 05/18/24 pantoprazole 40 mg tablet,delayed release 40 mg PO BID #0 tabs 05/18/24 bupropion HCl 150 mg 24 hr tablet, extended release 150 mg PO DAILY depression 08/05/24 acetaminophen 325 mg tablet 650 mg (2 x 325 mg) PO Q6H PRN PRN Pain 1-10 Or Fever >100.7 #0 tabs 08/09/24 albuterol sulfate 2.5 mg/3 mL (0.083 %) solution for nebulization 2.5 mg (3 mL) inhalation Q2H PRN PRN SOB &/OR WHEEZING #0 mL 08/09/24 duloxetine 30 mg capsule,delayed release 30 mg PO DAILY #0 caps 08/09/24 food supplemt, lactose-reduced 0.08 gram-1.5 kcal/mL oral liquid (Ensure Plus High Protein) 120 ml PO 4X/DAY #0 mL 08/09/24 Hospital Course Summary of Care Provided Minutes Spent on Discharge: 35 Physical Exam Narrative GENERAL: cooperative but appears fatigued HEENT: Atraumatic; normocephalic EYES; Anicteric, Normal Conjunctiva NECK; supple, normal thyroid, RESPIRATORY: Diminished to auscultation CARDIOVASCULAR: Regular S1 S2, GI: soft, normoactive bowel sounds, : No Renal angle tenderness; EXTREMITIES: No edema, no clubbing, MUSCULOSKELETAL: no muscle wasting NEURO: Awake; no lateralizing signs. SKIN: No Rash PSYCH; Flat affect Weight / BMI Weight Weight: 67.3 kg Body Mass Index (BMI) 22.4 ABG / Lab / Microbiology Data 10/23/24 04:54 10/23/24 04:54 Microbiology: Microbiology 10/18/24 02:11 Stool Stool Occult Blood (JERMAINE) - Final D/C Instructions DC O2, CPAP, BIPAP Needs Home O2 Discharge instructions: No Meaningful Use Info Meaningful Use Meaningful Use Diagnoses (Choose all that apply): None applicable Discharge Plan Admission Admit Date/Time: 10/18/24 12:00 Attending Provider: Jacoby Mendoza Primary Care Provider: Keven Etienne Consulting Providers: Doretha Aguero; Paris Monsivais; Jennifer Mccann; Alex Grullon; Mo Cortez; Mj Salas; Jos Ken; David Granados; Jacoby Salazar; Jonah Bey; Jian Alanis; Danette Sargent; Claudia Parham; Immanuel Gill; Dustin Ace; Santana Pelayo RETAIL PLANNER; Meena Morel; Chay Daly; Jacoby Tenorio; Harish Baxter; Hattie Hester; Jacoby Mendoza Discharge Orders/Prescriptions Prescriptions: Continued midodrine 5 mg Tablet 10 mg PO 0700,1100,1500 Qty: 0 0RF pantoprazole 40 mg Tablet,Delayed Release (Dr/Ec) 40 mg PO BID Qty: 0 0RF mirtazapine 15 mg Tablet 15 mg PO QHS Qty: 0 0RF sennosides-docusate sodium [Stimulant Laxative Plus] 8.6-50 mg Tablet 2 tab PO BID Qty: 0 0RF bupropion HCl 150 mg tablet extended release 24 hr 150 mg PO DAILY acetaminophen 325 mg Tablet 650 mg PO Q6H PRN PRN (Reason: Pain 1-10 Or Fever >100.7) Qty: 0 0RF albuterol sulfate 2.5 mg /3 mL (0.083 %) Solution For Nebulization 2.5 mg inhalation Q2H PRN PRN (Reason: SOB &/OR WHEEZING) Qty: 0 0RF duloxetine 30 mg Capsule,Delayed Release(Dr/Ec) 30 mg PO DAILY Qty: 0 0RF Ensure Plus High Protein 0.08 gram-1.5 kcal/mL Liquid 120 ml PO 4X/DAY Qty: 0 0RF Referrals / Follow Up: Kevin Menjivar MD [Med Staff - Sql Server Consultant] - Keven Etienne MD [Primary Care Provider] - Disposition Disposition (needs filled in before D/C Order can be placed): Acute Care Hospital Charges/Coding Visit Charges Inpatient E&M: 06578 Disch Hosp >30min
[2024-10-24 14:08] LABS: ANTINUCLEAR ANTIBODIES DIRECT Negative (Negative)
[2024-10-24 19:08] LABS: Cytoplasmic Ab (C-ANCA) <1:20 titer (Neg:<1:20); Perinuclear Ab (P-ANCA) <1:20 titer (Neg:<1:20)
[2024-10-26 17:08] LABS: Coxsackie A Type 16 IgG Negative titer (Neg:<1:100); Coxsackie A Type 16 IgM Negative titer (Neg:<1:10); Coxsackie A Type 24 IgG Negative titer (Neg:<1:100); Coxsackie A Type 24 IgM Negative titer (Neg:<1:10); Coxsackie A Type 7 IgG Negative titer (Neg:<1:100); Coxsackie A Type 7 IgM Negative titer (Neg:<1:10); Coxsackie A Type 9 IgG Negative titer (Neg:<1:100); Coxsackie A Type 9 IgM Negative titer (Neg:<1:10); Lyme Scn Total Ab w/Rflx Negative (Negative)
== END 2024-10-24 00:05 | disposition short-term general hospital (02) | DRG 312 ==
LOC: ED 10-18 03:34 → PCU 10-18 05:07
PROVIDERS: Internal Medicine; Admitting Provider Internal Medicine; Emergency Provider Emergency Medicine; PCP Internal Medicine; Visit Provider Internal Medicine
DX: I95.1 Orthostatic hypotension (principal); I31.39 Other pericardial effusion (noninflammatory); I24.89 Other forms of acute ischemic heart disease; M47.12 Other spondylosis with myelopathy, cervical region; Z66 Do not resuscitate; D64.9 Anemia, unspecified; F32.A Depression, unspecified; K21.9 Gastro-esophageal reflux disease without esophagitis; F41.9 Anxiety disorder, unspecified; D72.829 Elevated white blood cell count, unspecified; K43.9 Ventral hernia without obstruction or gangrene; E86.0 Dehydration; E87.6 Hypokalemia; M24.412 Recurrent dislocation, left shoulder; K58.2 Mixed irritable bowel syndrome; Z79.899 Other long term (current) drug therapy; Z87.891 Personal history of nicotine dependence; Z98.1 Arthrodesis status
CPT/HCPCS: 36415; 80048; 80053; 80061; 81001; 82274; 82607; 82746; 82962; 83735; 84100; 84443; 84484; 85025; 85610; 85652; 85730; 86037; 86038; 86140; 86225; 86618; 86658; 93308; 93880; 94668; 97110; 97162; 97166; 97530; 97535; 97802; 97803; 99252; 99285; A4216; G0463